=== PATIENT | female | born 1975 | race Two or more races ===

== ENCOUNTER 2020-05-06 13:22 | Emergency (ER) | payer MEDICARE, MEDICAID, SELFPAY ==
[2020-05-06 14:16] VITALS: BP 188/93; PULSE 90; RESP 16; TEMP 36.4; O2SAT 97; BMI 42.5
--- NOTE | 2020-05-06 15:02 | ED.GENADULT ---
HPI - General Adult General Chief complaint: General Medical Stated complaint: med refills Time Seen by Provider: 05/06/20 14:44 Source: patient Mode of arrival: ambulatory Limitations: no limitations History of Present Illness HPI narrative: 44-year-old female with a past medical history of depression, PTSD, bipolar, chronic mental illness, hypertension, obesity, peptic ulcer disease, chronic back pain and anemia presenting to the ED for medication refill. Reports that she recently moved to the area and has not had her medications in 3 weeks. Reports that she has been following up with the therapist weekly although she does not have an appointment with the psychiatrist or PCP until 3 months and they cannot prescribe her anything until then. She denies any SI/HI/auditory visual hallucinations or thoughts of self injury. Denies any other complaints or concerns at this time. MD complaint: Medication refill Onset (ago): week(s) Related Data Previous Rx's Medication Instructions Recorded cyclobenzaprine 10 mg PO TID PRN #90 tab 05/06/20 divalproex [Depakote] 1,250 mg PO BID #450 tab 05/06/20 ferrous sulfate 325 mg PO DAILY #90 tab 05/06/20 hydroxyzine HCl 25 mg PO TID PRN #90 tab 05/06/20 levothyroxine 25 mcg PO DAILY #90 tab 05/06/20 lisinopril 5 mg PO DAILY #90 tab 05/06/20 omeprazole 20 mg PO DAILY #90 cap 05/06/20 prazosin 1 mg PO BEDTIME #90 cap 05/06/20 quetiapine 100 mg PO BEDTIME #90 tab 05/06/20 trazodone 50 mg PO BEDTIME #90 tab 05/06/20 Allergies Allergy/AdvReac Type Severity Reaction Status Date / Time hydromorphone Allergy Unknown Verified 06/22/16 00:00 insect venom [INSECT BITES] Allergy Unknown UNKNOWN Unverified 11/06/19 16:41 penicillin V Allergy Unknown Verified 06/22/16 00:00 Penicillins Allergy Unknown UNKNOWN Unverified 11/06/19 16:41 sulfamethoxazole Allergy Unknown UNKNOWN Unverified 11/06/19 16:41 [From BACTRIM] trimethoprim [From BACTRIM] Allergy Unknown UNKNOWN Unverified 11/06/19 16:41 From DILAUDID Allergy Unknown RASH Uncoded 11/06/19 16:41 Review of Systems Review of Systems: Constitutional : No Fever, No Chills ENT/Mouth : No Ear Pain, No Nasal Congestion, No sore throat Eyes: No Eye Pain, No Swelling, No Redness Cardiovascular : No Chest Pain, No SOB Respiratory : No Cough, No Sputum, No Dyspnea Gastrointestinal : No ingestions, No Nausea, No Vomiting, No Diarrhea, No Hematochezia, No Melena Genitourinary : No Dysuria, No Urinary Frequency, No Hematuria Musculoskeletal : No Myalgias Skin : No Skin Lesions, No rash Neuro : No Weakness, No Numbness, No Paresthesias, No Dizziness, No Headache Psych : No Anxiety, No Depression, No SI/HI, No AVH, No thoughts of self injury Heme/Lymph: No Lymphadenopathy Endocrine : No Polyuria, No Polydipsia Yes all other systems are reviewed and are negative [facility] Past Medical History Attestation statement: The following information was validated with the patient. Medical History Hypertension Psychiatric diagnosis Social History Social History Advance Directives: No Advance Directives Information Provided: No Physical Exam Vital Signs: Vital Signs: Last Vital Signs Temp 97.6 F 05/06/20 14:16 Pulse 90 05/06/20 14:16 Resp 16 05/06/20 14:16 BP 188/93 H 05/06/20 14:16 Pulse Ox 97 05/06/20 14:16 Body Mass Index 42.5 vital signs have been reviewed as normal and appeared to be correct. Blood pressure normal. Heart rate normal. Respiration rate normal. Temperature normal. Oxygen saturation normal. Appearance: Alert. Oriented X3. No acute distress. Head: Normal external exam. Normocephalic. Atraumatic. Eyes: PERRLA. EOMI. Conjunctiva and sclera normal. Eyelids normal. ENT: Pharynx normal. Uvula midline. Moist mucous membranes. Neck: Normal inspection. Neck supple. FROM. No adenopathy. Thyroid Normal. No meningeal signs. No neck mass noted. CVS: Normal heart rate and rhythm. Heart sound normal. No murmurs noted. Pulses normal throughout. Respiratory: No respiratory distress. Painless inspiration. Back: No CVA tenderness. Full range of motion noted. Skin: Skin warm and dry. Normal skin color. Normal skin turgor. No rashes/lesions/lacerations noted. Extremities: No lower extremity edema. Extremities exhibit normal range of motion. Extremities nontender. Neuro: Oriented X 3. No motor deficit. No sensory deficit. Reflexes normal. Psych: Appearance grossly normal, well-kept, mental status normal, speech and movement normal, speech clear, patient has a normal mood. Is cooperative. Normal thought process. Normal thought content. Normal good insight. Judgment good. Course Course Course Narrative: 44-year-old female with a past medical history of depression, PTSD, bipolar, chronic mental illness, hypertension, obesity, peptic ulcer disease, chronic back pain and anemia presenting to the ED for medication refill. Reports that she recently moved to the area and has not had her medications in 3 weeks. Reports that she has been following up with the therapist weekly although she does not have an appointment with the psychiatrist or PCP until 3 months and they cannot prescribe her anything until then. She denies any SI/HI/auditory visual hallucinations or thoughts of self injury. Denies any other complaints or concerns at this time. - will refill the patient's medications and instructed to return if any new or worsening symptoms to follow up with her therapist/psychiatrist and PCP when she gets her appointment. Patient understands agrees with this plan. Medical Decision Making Medical Records Medical records reviewed: Yes I reviewed the patient's medical records. Discharge Plan Discharge Clinical Impression: Encounter for medication refill Patient Disposition: Home, Self-Care Instructions: Medicine Refill (ED) Prescriptions: New hydroxyzine HCl 25 mg tablet 25 mg PO TID PRN (Reason: Itchy) Qty: 90 RF: 3 cyclobenzaprine 10 mg tablet 10 mg PO TID PRN (Reason: muscle spasm) Qty: 90 RF: 3 divalproex [Depakote] 250 mg tablet,delayed release (DR/EC) 1,250 mg PO BID Qty: 450 RF: 3 prazosin 1 mg capsule 1 mg PO BEDTIME Qty: 90 RF: 3 omeprazole 20 mg capsule,delayed release(DR/EC) 20 mg PO DAILY Qty: 90 RF: 3 trazodone 50 mg tablet 50 mg PO BEDTIME Qty: 90 RF: 3 levothyroxine 25 mcg tablet 25 mcg PO DAILY Qty: 90 RF: 3 ferrous sulfate 325 mg (65 mg iron) tablet 325 mg PO DAILY Qty: 90 RF: 3 lisinopril 5 mg tablet 5 mg PO DAILY Qty: 90 RF: 3 quetiapine 100 mg tablet 100 mg PO BEDTIME Qty: 90 RF: 3 Referrals: Physician,None [Primary Care Provider] - 2 days (Your PCP/therapist/psychiatrist) Print Language: Indonesian
== END 2020-05-06 15:45 | disposition home or self-care (01) ==
PROVIDERS: Emergency Provider Emergency Medicine Emergency Medical Services
DX: Z76.0 Encounter for issue of repeat prescription (principal); F31.9 Bipolar disorder, unspecified; F43.10 Post-traumatic stress disorder, unspecified; I10 Essential (primary) hypertension
CPT/HCPCS: 99283

== ENCOUNTER 2020-08-01 01:02 | Emergency (ER) | payer MEDICARE, MEDICAID, SELFPAY ==
--- NOTE | ~2020-08-01 | XR_ITS ---
EXAMINATION: XR KNEE, RIGHT CLINICAL INFORMATION: Knee pain COMPARISON: None TECHNIQUE: Four views of the right knee. FINDINGS: Osseous alignment is anatomic. There is mild to moderate tricompartmental joint space narrowing with associated osteophytosis. No acute fracture is seen. Moderate effusion is noted. XR/XR knee RT 4V IMPRESSION: Moderate knee effusion. Mild to moderate degenerative changes.
[2020-08-01 02:11] VITALS: BP 106/79; PULSE 122; RESP 18; TEMP 36.2; O2SAT 97; BMI 42.7
--- NOTE | 2020-08-01 05:46 | ED.LOWEXIN ---
HPI - Extremity Injury (Lower) General Chief Complaint: Extremity Injury, Lower Stated Complaint: Back pain Time Seen by Provider: 08/01/20 05:19 History of Present Illness HPI Narrative: Patient is a 44-year-old female with a history of arthritis to the right knee. Complaining of pain worse with movement. There is no fever no chills. No systemic complaints. Patient denies any trauma. Had cortisone shots for similar episodes in the past. Symptoms seems to be improved with a cortisone shots. No nausea no vomiting. No chest pain or shortness of breath. No diaphoresis. No leg swelling. Related Data Previous Rx's Medication Instructions Recorded cyclobenzaprine 10 mg PO TID PRN #90 tab 05/06/20 divalproex [Depakote] 1,250 mg PO BID #450 tab 05/06/20 ferrous sulfate 325 mg PO DAILY #90 tab 05/06/20 hydroxyzine HCl 25 mg PO TID PRN #90 tab 05/06/20 levothyroxine 25 mcg PO DAILY #90 tab 05/06/20 lisinopril 5 mg PO DAILY #90 tab 05/06/20 omeprazole 20 mg PO DAILY #90 cap 05/06/20 prazosin 1 mg PO BEDTIME #90 cap 05/06/20 quetiapine 100 mg PO BEDTIME #90 tab 05/06/20 trazodone 50 mg PO BEDTIME #90 tab 05/06/20 hydromorphone [Dilaudid] 2 mg PO Q6H PRN 7 Days #14 tab 08/01/20 Allergies Allergy/AdvReac Type Severity Reaction Status Date / Time hydromorphone Allergy Unknown Verified 06/22/16 00:00 insect venom [INSECT BITES] Allergy Unknown UNKNOWN Unverified 11/06/19 16:41 penicillin V Allergy Unknown Verified 06/22/16 00:00 Penicillins Allergy Unknown UNKNOWN Unverified 11/06/19 16:41 sulfamethoxazole Allergy Unknown UNKNOWN Unverified 11/06/19 16:41 [From BACTRIM] trimethoprim [From BACTRIM] Allergy Unknown UNKNOWN Unverified 11/06/19 16:41 From DILAUDID Allergy Unknown RASH Uncoded 11/06/19 16:41 Review of Systems Review of Systems: Constitutional: No Weight loss, No Fever, No Chills, No Night Sweats, No Fatigue, No Malaise ENT/Mouth: No Hearing loss, No Ear Pain, No Nasal Congestion, No Sinus Pain, No Hoarseness, No sore throat, No Rhinorrhea, No Swallowing Difficulty Eyes: No Eye Pain, No Swelling, No Redness, No Foreign Body, No Discharge, No Vision Changes Cardiovascular: No Chest Pain, No SOB, No Dyspnea on Exertion, No Orthopnea, No Edema, No Palpitations Respiratory: No Cough, No Sputum, No Wheezing, No Smoke Exposure, No Dyspnea Gastrointestinal: No Nausea, No Vomiting, No Diarrhea, No Constipation, No abdominal Pain, No Hematochezia, No Melena Genitourinary: no irregular bleeding, No Dysuria, No Urinary Frequency, No Hematuria, No Urinary Incontinence, No Urgency, No Flank Pain, No Urinary Flow Changes, No Hesitancy Musculoskeletal: Positive pain to the left knee. Worse with movement Skin: No Skin Lesions, No rash Neuro: No Weakness, No Numbness, No Paresthesias, No Loss of Consciousness, No Dizziness, No Headache Psych: No Anxiety/Panic, No Depression, No SI/HI/AH/VH, No Social Issues, Heme/Lymph: No Bruising, No Bleeding,No Lymphadenopathy Endocrine: No Polyuria, No Polydipsia, No Temperature Intolerance PMFSH Past Medical History Attestation statement: The following information was validated with the patient. Medical History Hypertension Psychiatric diagnosis Social History Social History Advance Directives: No Advance Directives Information Provided: No Patient : No Physical Exam Vital Signs: Vital Signs: Last Vital Signs Temp 97.1 F 08/01/20 02:11 Pulse 122 H 08/01/20 02:11 Resp 18 08/01/20 02:11 BP 106/79 08/01/20 02:11 Pulse Ox 97 08/01/20 02:11 Body Mass Index 42.7 Appearance: Alert. Oriented X3. No acute distress. Eyes: Pupils equal, round and reactive to light. ENT: Pharynx normal. Neck: Normal inspection. Neck supple. No lymph nodes noted. No crepitus CVS: Normal heart rate and rhythm. Pulses normal. Normal S1 and S2 Respiratory: No respiratory distress. Breath sounds normal. No Wheezing. No rales Abdomen: Soft and nontender. No rigidity. No distention. good BS x4 Skin: Skin warm and dry. Normal skin color. Normal skin turgor. Extremities: No lower extremity edema. Neurovascular intact to all extremities. No Lacerations. No Rash. Positive moderate effusion in the right knee. Range of motion limited secondary to pain. There is no warmth to touch. Distally neurovascularly intact. There is good pulses at dorsalis pedis 2+. Sensation intact skin intact. Neuro: Oriented X 3. No motor deficit. No sensory deficit. Moving all extermities. No slurred speech MDM - Extremity Injury (Lower) MDM Narrative Medical decision making narrative: X-ray did not show any acute fracture. Showed a moderate effusion. Attempted to drain the knee after consent was obtained from patient. The knee was cleaned with Betadine. An 18 gauge needle is used for extraction of fluid. Unfortunately we were not able to get any fluid from the joint. Patient has a history of arthritis. Will start patient on narcotics as patient has a history of gastric ulcers and is unable to take NSAIDs. Currently in stable condition. Patient has a follow-up with her primary physician in the next week. She was told her primary can give her a steroid injection. Discharge Plan Discharge Clinical Impression: Osteoarthritis Patient Disposition: Home, Self-Care Instructions: Osteoarthritis (ED) Prescriptions: New hydromorphone [Dilaudid] 2 mg tablet 2 mg PO Q6H PRN (Reason: pain) 7 Days Qty: 14 RF: 0 No Action hydroxyzine HCl 25 mg tablet 25 mg PO TID PRN (Reason: Itchy) Qty: 90 RF: 3 cyclobenzaprine 10 mg tablet 10 mg PO TID PRN (Reason: muscle spasm) Qty: 90 RF: 3 divalproex [Depakote] 250 mg tablet,delayed release (DR/EC) 1,250 mg PO BID Qty: 450 RF: 3 prazosin 1 mg capsule 1 mg PO BEDTIME Qty: 90 RF: 3 omeprazole 20 mg capsule,delayed release(DR/EC) 20 mg PO DAILY Qty: 90 RF: 3 trazodone 50 mg tablet 50 mg PO BEDTIME Qty: 90 RF: 3 levothyroxine 25 mcg tablet 25 mcg PO DAILY Qty: 90 RF: 3 ferrous sulfate 325 mg (65 mg iron) tablet 325 mg PO DAILY Qty: 90 RF: 3 lisinopril 5 mg tablet 5 mg PO DAILY Qty: 90 RF: 3 quetiapine 100 mg tablet 100 mg PO BEDTIME Qty: 90 RF: 3
[2020-08-01] MEDS: HYDROmorphone HCl 2 MG TABLET PO (06:01)
== END 2020-08-01 06:38 | disposition home or self-care (01) ==
PROVIDERS: Emergency Provider Emergency Medicine Emergency Medical Services
DX: M25.461 Effusion, right knee (principal); M17.11 Unilateral primary osteoarthritis, right knee
CPT/HCPCS: 73564; 99283

== ENCOUNTER 2020-08-01 19:53 | Emergency (ER) | payer MEDICARE, MEDICAID, SELFPAY ==
[2020-08-01 21:03] VITALS: BP 176/100; PULSE 118; RESP 18; TEMP 36.6; O2SAT 98; BMI 42.1
[2020-08-01] MEDS: methylPREDNISolone acetate 80 MG VIAL INTRAARTIC (22:30)
[2020-08-01] MEDS: Lidocaine HCl 2 % MPF 5 ML VIAL INFILTRATI (22:31)
--- NOTE | 2020-08-01 23:09 | ED.EXTPRO ---
HPI - Extremity Problem General Chief complaint: Extremity Problem Stated complaint: knee pain Time Seen by Provider: 08/01/20 21:27 Source: patient Mode of arrival: ambulatory Limitations: no limitations History of Present Illness HPI Narrative: Patient osteoarthritis of knees complaining of increased pain in the right knee for last few days patient was seen here last night x-ray were done which shows arthritis with effusion S patient was tried yesterday without success patient come here for continued pain patient had received cortisone shot in the past Related Data Previous Rx's Medication Instructions Recorded cyclobenzaprine 10 mg PO TID PRN #90 tab 05/06/20 divalproex [Depakote] 1,250 mg PO BID #450 tab 05/06/20 ferrous sulfate 325 mg PO DAILY #90 tab 05/06/20 hydroxyzine HCl 25 mg PO TID PRN #90 tab 05/06/20 levothyroxine 25 mcg PO DAILY #90 tab 05/06/20 lisinopril 5 mg PO DAILY #90 tab 05/06/20 omeprazole 20 mg PO DAILY #90 cap 05/06/20 prazosin 1 mg PO BEDTIME #90 cap 05/06/20 quetiapine 100 mg PO BEDTIME #90 tab 05/06/20 trazodone 50 mg PO BEDTIME #90 tab 05/06/20 hydromorphone [Dilaudid] 2 mg PO Q6H PRN 7 Days #14 tab 08/01/20 Allergies Allergy/AdvReac Type Severity Reaction Status Date / Time hydromorphone Allergy Unknown Unknown Verified 08/01/20 22:29 insect venom [INSECT BITES] Allergy Unknown UNKNOWN Verified 08/01/20 22:29 penicillin V Allergy Unknown Unknown Verified 08/01/20 22:29 Penicillins Allergy Unknown UNKNOWN Verified 08/01/20 22:29 sulfamethoxazole Allergy Unknown UNKNOWN Verified 08/01/20 22:29 [From BACTRIM] trimethoprim [From BACTRIM] Allergy Unknown UNKNOWN Verified 08/01/20 22:29 From DILAUDID Allergy Unknown RASH Uncoded 11/06/19 16:41 Review of Systems Review of Systems: Yes all other systems are reviewed and are negative PMFSH Past Medical History Medical History Hypertension Psychiatric diagnosis Social History Social History Advance Directives: No Advance Directives Information Provided: No Patient : No Physical Exam Vital Signs: Vital Signs: Last Vital Signs Temp 98 F 08/01/20 21:03 Pulse 118 H 08/01/20 21:03 Resp 18 08/01/20 21:03 BP 176/100 H 08/01/20 21:03 Pulse Ox 98 08/01/20 21:03 Body Mass Index 42.1 Const: General: comfortable and no acute distress HENMT: Head: Yes normocephalic Resp: Effort & Inspection: normal respiratory effort Auscultation: clear to auscultation bilaterally Cardio: Rate: regular rate Rhythm: regular rhythm Heart sounds: S1 normal heart sound present and S2 normal heart sound present Extrem: Knee images: 1. Diffuse tenderness with effusion Procedures Joint Aspiration/Injection Joint Asp./Inject. 1: Time Out Performed: Yes Side of body: right Joint Aspirated: knee Ultrasound Guidance: No Skin Prep: Povidone-Iodine1% Local Anesthetic: lidocaine 2% Amount of anesthesia used (mL): 1 Needle Size Used: 20G Fluid Obtained: viscous Total fluid obtained (mL): 0 Medication Injected, if any: Methylprednisolone (80 mg of Depo-Medrol+ 2 mL of lidocaine 2% injected) Amount of medication injected (mL): 3 Patient Tolerated Procedure: well Complications: none Additional Comments: Patient felt much better after Depo-Medrol injection pain almost gone and patient was ambulatory without any discomfort Discharge Plan Discharge Clinical Impression: Osteoarthritis Qualifiers: Osteoarthritis location: knee Osteoarthritis type: primary Laterality: right Qualified Code(s): M17.11 - Unilateral primary osteoarthritis, right knee Patient Disposition: Home, Self-Care Instructions: Osteoarthritis (ED) Additional Instructions: Rest your right knee use Brody wrap for support follow-up with orthopedic Prescriptions: No Action hydroxyzine HCl 25 mg tablet 25 mg PO TID PRN (Reason: Itchy) Qty: 90 RF: 3 cyclobenzaprine 10 mg tablet 10 mg PO TID PRN (Reason: muscle spasm) Qty: 90 RF: 3 divalproex [Depakote] 250 mg tablet,delayed release (DR/EC) 1,250 mg PO BID Qty: 450 RF: 3 prazosin 1 mg capsule 1 mg PO BEDTIME Qty: 90 RF: 3 omeprazole 20 mg capsule,delayed release(DR/EC) 20 mg PO DAILY Qty: 90 RF: 3 trazodone 50 mg tablet 50 mg PO BEDTIME Qty: 90 RF: 3 levothyroxine 25 mcg tablet 25 mcg PO DAILY Qty: 90 RF: 3 ferrous sulfate 325 mg (65 mg iron) tablet 325 mg PO DAILY Qty: 90 RF: 3 lisinopril 5 mg tablet 5 mg PO DAILY Qty: 90 RF: 3 quetiapine 100 mg tablet 100 mg PO BEDTIME Qty: 90 RF: 3 hydromorphone [Dilaudid] 2 mg tablet 2 mg PO Q6H PRN (Reason: pain) 7 Days Qty: 14 RF: 0 Referrals: Lise Gold MD [Physician] - 2 weeks Interventions: ED Discharge Assessment Last Done: 08/01/20 22:44 Discharge Date/Time: 08/01/20 22:54
== END 2020-08-01 22:54 | disposition home or self-care (01) ==
PROVIDERS: Emergency Provider Internal Medicine; PCP General Practice
DX: M17.11 Unilateral primary osteoarthritis, right knee (principal); M25.461 Effusion, right knee; M25.561 Pain in right knee
CPT/HCPCS: 20610; 73564; 99283; 99285; J1040

== ENCOUNTER 2020-08-05 14:03 | Emergency (ER) | payer MEDICARE, MEDICAID, SELFPAY ==
--- NOTE | ~2020-08-05 | XR_ITS ---
EXAMINATION: XR KNEE, RIGHT CLINICAL INFORMATION: Right knee pain. [place] crack sound. Assess for fracture. COMPARISON: Radiographs right knee 08/01/2020. TECHNIQUE: 5 views of the right knee. FINDINGS: There is a moderate to large suprapatellar effusion similar to prior exam 08/01/2020. There is no interval fracture or dislocation or destructive process. Again, there are osteoarthritic changes involving the medial lateral knee joint compartments with joint narrowing and osteophytes from the femoral condyles and tibial plateau. There is no erosive change or chondrocalcinosis. XR/XR knee RT 4V IMPRESSION: Osteoarthritis with moderate to large suprapatellar effusion similar to recent exam 08/01/2020. No fracture or dislocation.
[2020-08-05 14:21] VITALS: BP 139/78; PULSE 105; RESP 17; TEMP 36.9; O2SAT 97; BMI 42.7
--- NOTE | 2020-08-05 14:49 | ED_ITS ---
HPI - Extremity Injury (Lower) General Chief Complaint: Extremity Injury, Lower Stated Complaint: knee pain Time Seen by Provider: 08/05/20 14:23 Source: patient Mode of arrival: ambulatory Limitations: no limitations History of Present Illness HPI Narrative: patient presents to ED for right knee pain. patient was here 2 days ago for knee pain had x-ray which showed arthritis and knee effusion as per patient. Patient states arthrocentesis was attempted, but not successful. States today while going up the stairs she twisted the knee and heard a crack and felt her kneecap went out of place. states pain ever since. Related Data Previous Rx's Medication Instructions Recorded cyclobenzaprine 10 mg PO TID PRN #90 tab 05/06/20 divalproex [Depakote] 1,250 mg PO BID #450 tab 05/06/20 ferrous sulfate 325 mg PO DAILY #90 tab 05/06/20 hydroxyzine HCl 25 mg PO TID PRN #90 tab 05/06/20 levothyroxine 25 mcg PO DAILY #90 tab 05/06/20 lisinopril 5 mg PO DAILY #90 tab 05/06/20 omeprazole 20 mg PO DAILY #90 cap 05/06/20 prazosin 1 mg PO BEDTIME #90 cap 05/06/20 quetiapine 100 mg PO BEDTIME #90 tab 05/06/20 trazodone 50 mg PO BEDTIME #90 tab 05/06/20 hydromorphone [Dilaudid] 2 mg PO Q6H PRN 7 Days #14 tab 08/01/20 ketorolac 10 mg PO Q6H PRN 5 Days #20 tab 08/05/20 prednisone 60 mg PO DAILY 5 Days #15 tab 08/05/20 Allergies Allergy/AdvReac Type Severity Reaction Status Date / Time hydromorphone Allergy Unknown Unknown Verified 08/05/20 14:24 insect venom [INSECT BITES] Allergy Unknown UNKNOWN Verified 08/05/20 14:24 penicillin V Allergy Unknown Unknown Verified 08/05/20 14:24 Penicillins Allergy Unknown UNKNOWN Verified 08/05/20 14:24 sulfamethoxazole Allergy Unknown UNKNOWN Verified 08/05/20 14:24 [From BACTRIM] trimethoprim [From BACTRIM] Allergy Unknown UNKNOWN Verified 08/05/20 14:24 From DILAUDID Allergy Unknown RASH Uncoded 09/17/20 16:41 Review of Systems Review of Systems: Yes all other systems are reviewed and are negative Constitutional: Constitutional: Reports as per HPI and Reports no additional constitutional complaints Eyes: Eyes: Reports as per HPI and Reports no additional eye complaints ENT: Reports system reviewed and no additional complaints, except as documented and Reports as per HPI Cardiovascular: Cardiovascular: Reports as per HPI and Reports no additional cardiovascular complaints Respiratory: Respiratory: Reports as per HPI and Reports no additional respiratory complaints Gastrointestinal: Gastrointestinal: Reports as per HPI and Reports no additional gastrointestinal complaints Genitourinary: Genitourinary: Reports no additional female genitourinary complaints and Reports as per HPI Musculoskeletal: Musculoskeletal: Reports no additional musculoskeletal complaints, Reports as per HPI and Reports arthralgias (right knee pain) Neurologic: Reports system reviewed and no additional complaints, except as documented and Reports as per HPI [facility] Past Medical History Medical History Hypertension Psychiatric diagnosis Social History Social History Advance Directives: No Advance Directives Information Provided: Yes Patient : No Physical Exam Vital Signs: Vital Signs: Last Vital Signs Temp 98.5 F 08/05/20 14:21 Pulse 105 H 08/05/20 14:21 Resp 17 08/05/20 15:57 BP 139/78 08/05/20 14:21 Pulse Ox 97 08/05/20 14:21 Body Mass Index 42.7 Const: General: cooperative, healthy appearing, comfortable, no acute distress, well developed, alert, awake and Physically active Orientation/consciousness: patient oriented x3 HENMT: Head: Yes normal to inspection, Yes No palpable skull fracture present, Yes normocephalic, Yes atraumatic and No abrasion Eyes: General: appearance normal, both eyes and all related structures Neck: Neck: Yes normal visual inspection, Yes full ROM, Yes no lymphadenopathy, Yes no meningeal signs, Yes trachea midline, Yes supple and No tender Chest: Chest palpation & inspection: normal inspection of the chest and normal palpation of entire chest wall Resp: Effort & Inspection: normal respiratory effort and able to speak in complete sentences Auscultation: clear to auscultation bilaterally GI: Inspection: Yes normal to inspection and No abdominal wall ecchymosis Palpation (GI): Soft to palpation, not firm, nontender, no guarding and not rigid : General: No CVA tenderness and Yes no CVA tenderness Back/Spine/Pelvis: Back: no CVA tenderness, No CVA tenderness and No back t enderness Skin: General skin exam: no rashes or lesions noted and elasticity normal Neuro: General: patient oriented x3, gait normal, no meningeal signs and CN's II-XI intact bilaterally Cranial nerves: Yes CN's II-XII intact bilaterally Extrem: General: Yes normal to inspection and Yes full ROM Knee images: 1. Positive for bone tenderness and lateral knee tenderness on palpation. Negative from warmth, redness, or laxity. Negative for crepitus on palpation. Pain on range of motion but not stiff. Pulses in feet intact. Negative for leg swelling or calf pain. Psych: Appearance: grossly normal, well kempt and not disheveled Course Course Course Narrative: repeat x-ray due tp the patient stating new trauma today. Will give Toradol, steroids, muscle relaxer. presently no indication for arthrocentesis. Not suspecting gout or sepsis. Reevaluation(s) Reevaluation #1: X-ray negative for fracture. Patient will be discharged with prednisone and told to keep her orthopedic appointment. Patient feels better and walked out the ED on her own. Time: 15:50 MDM - Extremity Injury (Lower) MDM Narrative Medical decision making narrative: Osteoarthritis Discharge Plan Discharge Clinical Impression: Osteoarthritis, Effusion of knee joint Patient Disposition: Home, Self-Care Instructions: Osteoarthritis (ED), Swollen Knee Joint (ED) Additional Instructions: Return to ED for immediately for redness, warmth/hotness of knee, fever, chills, leg swelling, chest pain, shortness of breath, or any other concerning symptoms. Will send tramadol and prednisone to her pharmacy. Please keep your orthopedic and PCP appointment. Prescriptions: New prednisone 20 mg tablet 60 mg PO DAILY 5 Days Qty: 15 RF: 0 ketorolac 10 mg tablet 10 mg PO Q6H PRN (Reason: pain) 5 Days Qty: 20 RF: 0 No Action hydroxyzine HCl 25 mg tablet 25 mg PO TID PRN (Reason: Itchy) Qty: 90 RF: 3 cyclobenzaprine 10 mg tablet 10 mg PO TID PRN (Reason: muscle spasm) Qty: 90 RF: 3 divalproex [Depakote] 250 mg tablet,delayed release (DR/EC) 1,250 mg PO BID Qty: 450 RF: 3 prazosin 1 mg capsule 1 mg PO BEDTIME Qty: 90 RF: 3 omeprazole 20 mg capsule,delayed release(DR/EC) 20 mg PO DAILY Qty: 90 RF: 3 trazodone 50 mg tablet 50 mg PO BEDTIME Qty: 90 RF: 3 levothyroxine 25 mcg tablet 25 mcg PO DAILY Qty: 90 RF: 3 ferrous sulfate 325 mg (65 mg iron) tablet 325 mg PO DAILY Qty: 90 RF: 3 lisinopril 5 mg tablet 5 mg PO DAILY Qty: 90 RF: 3 quetiapine 100 mg tablet 100 mg PO BEDTIME Qty: 90 RF: 3 hydromorphone [Dilaudid] 2 mg tablet 2 mg PO Q6H PRN (Reason: pain) 7 Days Qty: 14 RF: 0 Referrals: Maddie Kim MD [Primary Care Provider] - 2 days ( right knee osteoarthritis and effusion. Has orthopedic follow-up) Stand Alone Forms: Work/School Release Interventions: ED Discharge Assessment Last Done: 08/05/20 16:00 Discharge Date/Time: 08/05/20 16:03 Print Language: Cuban
[2020-08-05] MEDS: predniSONE 20 MG TABLET 60 MG PO (14:51)
[2020-08-05] MEDS: Ketorolac Tromethamine 30 MG/ML VIAL IM (14:51)
[2020-08-05] MEDS: Cyclobenzaprine HCl 10 MG TABLET PO (14:51)
[2020-08-05 15:57] VITALS: RESP 17
== END 2020-08-05 16:03 | disposition home or self-care (01) ==
PROVIDERS: Emergency Provider Emergency Medicine; PCP General Practice
DX: M25.461 Effusion, right knee (principal); M17.11 Unilateral primary osteoarthritis, right knee; I10 Essential (primary) hypertension; Z79.899 Other long term (current) drug therapy
CPT/HCPCS: 73564; 96372; 99283; 99284; J1885

== ENCOUNTER 2020-08-08 14:47 | Emergency (ER) | payer MEDICARE, MEDICAID, SELFPAY ==
[2020-08-08 15:24] VITALS: BP 149/90; PULSE 115; RESP 18; TEMP 36.9; O2SAT 97; BMI 42.7
--- NOTE | 2020-08-08 16:19 | PC.NURSE ---
not in wr 1545, 1600 and 1615
--- NOTE | 2020-08-08 16:25 | PC.NURSE ---
Not in waiting room, outside bench or in bathrooms at this time. no response with name called.
== END 2020-08-08 16:26 | disposition left against medical advice (07) ==
PROVIDERS: Emergency Provider Emergency Medicine; PCP General Practice
DX: M79.603 Pain in arm, unspecified (principal)
CPT/HCPCS: 99281

== ENCOUNTER 2020-08-10 23:13 | Emergency (ER) | payer MEDICARE, MEDICAID, SELFPAY ==
--- NOTE | ~2020-08-10 | XR_ITS ---
EXAMINATION: XR LUMBOSACRAL SPINE CLINICAL INFORMATION: Low back pain. COMPARISON: MRI dated 05/23/2016 and radiograph dated 05/09/2016 TECHNIQUE: AP and lateral views of the lumbar spine and lateral view of the lumbosacral junction. FINDINGS: There is moderate to severe degenerative disc disease L4-L5 with marked loss of vertebral disc height, endplate sclerosis, and endplate osteophytes. This has significantly progressed as compared to 2017. There is minimal right convex lumbar curvature. No fractures. No spondylolisthesis. No other levels in the lumbar spine are relatively well-preserved by comparison. No acute osseous findings. SI joints are unremarkable. XR/XR lumbar spine 2-3V IMPRESSION: Moderate to severe degenerative disc disease at L3-L4 has significantly progressed as compared to 2017. No acute findings.
[2020-08-11 00:35] VITALS: BP 149/92; PULSE 104; RESP 16; TEMP 36; O2SAT 100; BMI 42.3
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
[2020-08-11] MEDS: Cyclobenzaprine HCl 10 MG TABLET PO (01:21)
[2020-08-11] MEDS: Lidocaine 4 % Patch ADH..PATCH 2 PATCH TRANSDERMA (01:22)
[2020-08-11 01:30] VITALS: BP 149/72; PULSE 88; RESP 20; O2SAT 98
== END 2020-08-11 02:30 | disposition left against medical advice (07) ==
PROVIDERS: Emergency Provider Emergency Medicine; PCP General Practice
DX: S39.012A Strain of muscle, fascia and tendon of lower back, initial encounter (principal); I10 Essential (primary) hypertension; Z79.899 Other long term (current) drug therapy; V89.2XXA Person injured in unspecified motor-vehicle accident, traffic, initial encounter; Y93.9 Activity, unspecified; Y92.410 Unspecified street and highway as the place of occurrence of the external cause; Y99.9 Unspecified external cause status
CPT/HCPCS: 72100; 99283; 99284

== ENCOUNTER 2020-08-11 04:32 | Emergency (ER) | payer MEDICARE, MEDICAID, SELFPAY ==
[2020-08-11 04:50] VITALS: BP 140/104; PULSE 100; RESP 20; TEMP 36.2; O2SAT 98; BMI 41.7
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
--- NOTE | 2020-08-11 06:02 | ED.LOWEXIN ---
HPI - Extremity Injury (Lower) General Chief Complaint: Extremity Injury, Lower Stated Complaint: Leg pain Time Seen by Provider: 08/11/20 06:01 Source: patient Mode of arrival: ambulatory History of Present Illness HPI Narrative: 44-year-old female presents to the emergency room again with complaints of knee pain and requesting food. Otherwise, she has no acute complaints. Related Data Previous Rx's Medication Instructions Recorded cyclobenzaprine 10 mg PO TID PRN #90 tab 05/06/20 divalproex [Depakote] 1,250 mg PO BID #450 tab 05/06/20 ferrous sulfate 325 mg PO DAILY #90 tab 05/06/20 hydroxyzine HCl 25 mg PO TID PRN #90 tab 05/06/20 levothyroxine 25 mcg PO DAILY #90 tab 05/06/20 lisinopril 5 mg PO DAILY #90 tab 05/06/20 omeprazole 20 mg PO DAILY #90 cap 05/06/20 prazosin 1 mg PO BEDTIME #90 cap 05/06/20 quetiapine 100 mg PO BEDTIME #90 tab 05/06/20 trazodone 50 mg PO BEDTIME #90 tab 05/06/20 hydromorphone [Dilaudid] 2 mg PO Q6H PRN 7 Days #14 tab 08/01/20 ketorolac 10 mg PO Q6H PRN 5 Days #20 tab 08/05/20 prednisone 60 mg PO DAILY 5 Days #15 tab 08/05/20 cyclobenzaprine 10 mg PO TID PRN #14 tab 08/11/20 Allergies Allergy/AdvReac Type Severity Reaction Status Date / Time hydromorphone Allergy Unknown Unknown Verified 08/05/20 14:24 insect venom [INSECT BITES] Allergy Unknown UNKNOWN Verified 08/05/20 14:24 penicillin V Allergy Unknown Unknown Verified 08/05/20 14:24 Penicillins Allergy Unknown UNKNOWN Verified 08/05/20 14:24 sulfamethoxazole Allergy Unknown UNKNOWN Verified 08/05/20 14:24 [From BACTRIM] trimethoprim [From BACTRIM] Allergy Unknown UNKNOWN Verified 08/05/20 14:24 From DILAUDID Allergy Unknown RASH Uncoded 11/06/19 16:41 Review of Systems Review of Systems: Pertinent positives and negatives as stated in HPI and 10 point review of systems is otherwise negative. PMFSH Past Medical History Source: nursing notes reviewed Medical History Hypertension Psychiatric diagnosis Social History Social History Patient Tobacco Use Status: Tobacco use Unknown Advance Directives: No Advance Directives Information Provided: No Patient : No Physical Exam Vital Signs: Vital Signs: Last Vital Signs Temp 97.2 F 08/11/20 04:50 Pulse 100 08/11/20 04:50 Resp 20 08/11/20 04:50 BP 140/104 H 08/11/20 04:50 Pulse Ox 98 08/11/20 04:50 Body Mass Index 41.7 Patient eloped prior to complete physical exam. GEN: NAD Patient observed to be walking without difficulty with a steady gait. Course Course Course Narrative: 44-year-old female who presents with knee pain and request for food. Discharge Plan Discharge Clinical Impression: Knee pain Patient Disposition: Elopement Prescriptions: No Action hydroxyzine HCl 25 mg tablet 25 mg PO TID PRN (Reason: Itchy) Qty: 90 RF: 3 cyclobenzaprine 10 mg tablet 10 mg PO TID PRN (Reason: muscle spasm) Qty: 90 RF: 3 divalproex [Depakote] 250 mg tablet,delayed release (DR/EC) 1,250 mg PO BID Qty: 450 RF: 3 prazosin 1 mg capsule 1 mg PO BEDTIME Qty: 90 RF: 3 omeprazole 20 mg capsule,delayed release(DR/EC) 20 mg PO DAILY Qty: 90 RF: 3 trazodone 50 mg tablet 50 mg PO BEDTIME Qty: 90 RF: 3 levothyroxine 25 mcg tablet 25 mcg PO DAILY Qty: 90 RF: 3 ferrous sulfate 325 mg (65 mg iron) tablet 325 mg PO DAILY Qty: 90 RF: 3 lisinopril 5 mg tablet 5 mg PO DAILY Qty: 90 RF: 3 quetiapine 100 mg tablet 100 mg PO BEDTIME Qty: 90 RF: 3 prednisone 20 mg tablet 60 mg PO DAILY 5 Days Qty: 15 RF: 0 ketorolac 10 mg tablet 10 mg PO Q6H PRN (Reason: pain) 5 Days Qty: 20 RF: 0 hydromorphone [Dilaudid] 2 mg tablet 2 mg PO Q6H PRN (Reason: pain) 7 Days Qty: 14 RF: 0 cyclobenzaprine 10 mg tablet 10 mg PO TID PRN (Reason: muscle spasm) Qty: 14 RF: 0
--- NOTE | 2020-08-11 06:03 | PC.NURSE ---
PATIENT STORMING OUT OF HER ROOM AFTER LAUGHING AND TALKING WITH THIS RN. SEEN BY PROVIDER. SHE STORMED OUT BYE THANKS FOR NOTHING . STATING TO REGISTRTION ON HER WAY OUT THAT SHE WILL BE BACK A THIRD TIME
== END 2020-08-11 06:09 | disposition left against medical advice (07) ==
PROVIDERS: Emergency Provider Student in an Organized Health Care Education/Training Program; PCP General Practice
DX: M25.569 Pain in unspecified knee (principal)
CPT/HCPCS: 72100; 99281; 99282; 99283; 99284

== ENCOUNTER 2020-08-12 23:27 | Inpatient (IN) | payer MEDICARE, MEDICAID, SELFPAY ==
[2020-08-13 00:06] VITALS: BP 144/110; PULSE 102; RESP 22; TEMP 36.1; O2SAT 98
[2020-08-13 00:31] VITALS: BP 140/72; PULSE 106; TEMP 35.7
[2020-08-13 00:33] VITALS: BMI 41.1
[2020-08-13] MEDS: Acetaminophen 325 MG TABLET 650 MG PO ×2 (01:14→20:04)
[2020-08-13] MEDS: hydrOXYzine HCL 25 MG TABLET PO (01:15)
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
[2020-08-13] MEDS: Omeprazole 20 MG CAPSULE.DR PO (05:58)
[2020-08-13 06:00] VITALS: BP 120/71; PULSE 95; RESP 18; TEMP 36.1; O2SAT 96
[2020-08-13] MEDS: Naltrexone HCl 50 MG TABLET PO (08:09)
[2020-08-13] MEDS: risperiDONE 0.5 MG TABLET PO (08:09)
--- NOTE | 2020-08-13 12:32 | P.DS_ITS ---
DS: Providers Provider Date of admission: 08/12/20 23:27 Primary care physician: Becca Callaway MD Consults: 08/13/20 00:00 Consult to Hospitalist Routine Consulting Provider: Hospitalist Reason For Exam: routine DS: Medications Discharge Medications Home Medications: Previous Rx's Medication Instructions Recorded cyclobenzaprine 10 mg PO TID PRN #90 tab 05/06/20 divalproex [Depakote] 1,250 mg PO BID #450 tab 05/06/20 ferrous sulfate 325 mg PO DAILY #90 tab 05/06/20 hydroxyzine HCl 25 mg PO TID PRN #90 tab 05/06/20 levothyroxine 25 mcg PO DAILY #90 tab 05/06/20 lisinopril 5 mg PO DAILY #90 tab 05/06/20 omeprazole 20 mg PO DAILY #90 cap 05/06/20 prazosin 1 mg PO BEDTIME #90 cap 05/06/20 quetiapine 100 mg PO BEDTIME #90 tab 05/06/20 trazodone 50 mg PO BEDTIME #90 tab 05/06/20 hydromorphone [Dilaudid] 2 mg PO Q6H PRN 7 Days #14 tab 08/01/20 ketorolac 10 mg PO Q6H PRN 5 Days #20 tab 08/05/20 prednisone 60 mg PO DAILY 5 Days #15 tab 08/05/20 cyclobenzaprine 10 mg PO TID PRN #14 tab 08/11/20 Discharge Plan Discharge Discharge Medications: No Action hydroxyzine HCl 25 mg tablet 25 mg PO TID PRN (Reason: Itchy) Qty: 90 RF: 3 cyclobenzaprine 10 mg tablet 10 mg PO TID PRN (Reason: muscle spasm) Qty: 90 RF: 3 divalproex [Depakote] 250 mg tablet,delayed release (DR/EC) 1,250 mg PO BID Qty: 450 RF: 3 prazosin 1 mg capsule 1 mg PO BEDTIME Qty: 90 RF: 3 omeprazole 20 mg capsule,delayed release(DR/EC) 20 mg PO DAILY Qty: 90 RF: 3 trazodone 50 mg tablet 50 mg PO BEDTIME Qty: 90 RF: 3 levothyroxine 25 mcg tablet 25 mcg PO DAILY Qty: 90 RF: 3 ferrous sulfate 325 mg (65 mg iron) tablet 325 mg PO DAILY Qty: 90 RF: 3 lisinopril 5 mg tablet 5 mg PO DAILY Qty: 90 RF: 3 quetiapine 100 mg tablet 100 mg PO BEDTIME Qty: 90 RF: 3 prednisone 20 mg tablet 60 mg PO DAILY 5 Days Qty: 15 RF: 0 ketorolac 10 mg tablet 10 mg PO Q6H PRN (Reason: pain) 5 Days Qty: 20 RF: 0 hydromorphone [Dilaudid] 2 mg tablet 2 mg PO Q6H PRN (Reason: pain) 7 Days Qty: 14 RF: 0 cyclobenzaprine 10 mg tablet 10 mg PO TID PRN (Reason: muscle spasm) Qty: 14 RF: 0 Data Data Completed and Pending Completed studies during hospitalization [Text1]: proposal writer reviewed labs from [facility] drawn on 08/12/20 and they are grossly WNL normal limits: lytes, cbc, bun/cr, lfts, UDS neg except for THC; [employer] Pilot does not see Urin e/serum test DS: Summary Time Spent with Patient Time attestation: Total time spent providing and/or coordinating discharge services:
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
--- NOTE | 2020-08-13 13:08 | PM.IMCN ---
History of Present Illness Data of Consult Service Date: 08/13/20 Requesting physician: Justice Summers Primary Care Provider: Becca Callaway MD [facility] facility This is a 44 yo F who endorses a PMH of HTN (reports being on lisinopril 5mg, although not sure how compliant she is because she reports not believing that she has high BP), OA of the knee (recently in [facility] for knee pain where an XR showed a large effusion), prior ankle surgery, tobacco use. She tells me that she is admitted to for not being able to sleep. She endorses chronic pain in the bilateral knees. She tells me she cannot take NSAIDS because I have 5 ulcers. She endorses prior joint injection in the knee in February. Besides her knee pain, she has no other medical complaints. Review of Systems Review of Systems: General - no fevers or chills Cardiovascular - no chest pain Respiratory - no shortness of breath or cough Abdominal- no abdominal pain, nausea, vomiting, diarrhea Ext - Knee pain PMFSH Medical History (Updated 08/13/20 @ 13:19 by Jose Mirza MD) Hypertension Psychiatric diagnosis Pertinent family history: Breast (cousin) Ovarian (aunt) Surgical History (Updated 08/13/20 @ 13:18 by Jose Mirza MD) History of ankle surgery History of cholecystectomy Social History Household Members: None Household Members Other:: lives by self Housing: Apartment Do you presently have visiting nurse or other home services: No Patient Tobacco Use Status: Current everyday Tobacco user Tobacco use type: Cigarette Smoked in Last 30 Days: Yes e-Cigarette/Vaping Use: Currently Using Patient Interested in Nicotine Replacement: No Patient Given Instructions on How to Stop Smoking: No Second Hand Smoke Exposure: No Use of substances other than those prescribed or required for medical reasons: Yes Substance Use Type Other:: CBD cigarettes Substance Use Frequency: Daily Last Used Substance: Just Prior to Admission Currently Displaying Signs/Symptoms of Drug Intoxication Withdrawal: No Other Past Substance Use Problem:: alcohol Any prior treatment program specific to substance use: Yes Have you been hit, kicked, punched, or otherwise hurt by someone within the past year? If so, by whom?: No Do you feel safe in your current relationship?: No Is there a partner from a previous relationship who is making you feel unsafe now?: No Are you made to feel afraid or neglected: No Spiritual Healthcare Practices: yes Voodoo Healthcare Practices: no gnosticist Cultural Healthcare Practices: no Advance Directives: No Advance Directives Information Provided: No Advance Directives on File: No Do you have thoughts of harming others: Constant and Vague Do you have a plan to hurt others: Clear Recently lost weight without trying: No Eating poorly because of decreased appetite: No Patient : No : No Poor oral hygiene: No service: No Sexual orientation: Did not discuss Meds Allergies Allergy/AdvReac Type Severity Reaction Status Date / Time hydromorphone Allergy Unknown Unknown Verified 08/05/20 14:24 insect venom [INSECT BITES] Allergy Unknown UNKNOWN Verified 08/05/20 14:24 penicillin V Allergy Unknown Unknown Verified 08/05/20 14:24 Penicillins Allergy Unknown UNKNOWN Verified 08/05/20 14:24 sulfamethoxazole Allergy Unknown UNKNOWN Verified 08/05/20 14:24 [From BACTRIM] trimethoprim [From BACTRIM] Allergy Unknown UNKNOWN Verified 08/05/20 14:24 From DILAUDID Allergy Unknown RASH Uncoded 11/06/19 16:41 Active Medications: Current Medications Generic Name Dose Route Start Last Admin Trade Name Freq PRN Reason Stop Dose Admin Acetaminophen 650 mg 08/13/20 00:00 08/13/20 01:14 Acetaminophen 325 Mg Tablet PO 650 mg Q6H PRN Administration Headache/Pain Mild Scale (1-3) Al Hydroxide/Mg Hydroxide 30 ml 08/13/20 00:00 Magnesium Hydrox/Alum Hydrox 30 Ml Oral.Susp PO Q6H PRN Heartburn/Nausea Cyclobenzaprine HCl 10 mg 08/13/20 00:57 Cyclobenzaprine Hcl 10 Mg Tablet PO TID PRN Pain, Mild (Pain Scale 1-3) Hydroxyzine HCl 25 mg 08/13/20 00:00 08/13/20 01:15 Hydroxyzine Hcl 25 Mg Tablet PO 25 mg BEDTIME PRN Administration Anxiety Magnesium Hydroxide 30 ml 08/13/20 00:00 Milk Of Magnesia 30 Ml Oral.Susp PO DAILY PRN Constipation Naltrexone HCl 50 mg 08/13/20 09:00 08/13/20 08:09 Naltrexone Hcl 50 Mg Tablet PO 50 mg DAILY JOSE DANIEL Administration Nicotine Polacrilex 2 mg 08/13/20 00:00 Nicotine Polacrilex 2 Mg Gum BUCCAL Q2H PRN Nicotine Cravings Omeprazole 20 mg 08/13/20 06:30 08/13/20 05:58 Omeprazole 20 Mg Capsule. PO 20 mg DAILY@0630 JOSE DANIEL Administration Prazosin HCl 1 mg 08/13/20 00:57 08/13/20 08:10 Prazosin Hcl 1 Mg Capsule PO Not Given BEDTIME [facility] Protocol Risperidone 0.5 mg 08/13/20 09:00 08/13/20 08:09 Risperidone 0.5 Mg Tablet PO 0.5 mg BID JOSE DANIEL Administration Trazodone HCl 50 mg 08/13/20 00:00 Trazodone Hcl 50 Mg Tablet PO BEDTIME PRN Insomnia Physical Exam Vital Signs and Narrative: Vital Signs: Last Vital Signs Temp 97 F 08/13/20 06:00 Pulse 95 08/13/20 06:00 Resp 18 08/13/20 06:00 BP 120/71 08/13/20 06:00 Pulse Ox 96 08/13/20 06:00 Body Mass Index 41.1 Const: Other: General - no acute distress, appears comfortable Cardiovascular - regular rate and rhythm, S1-S2 Lungs - normal respiratory effort, clear to auscultation bilaterally, no wheezing Abdomen - soft, nontender, no rebound or guarding Extremities - R knee effusion, ROM appears normal; ambulating freely in the hallway Neuro - awake and alert, no focal deficits Psych - impaired insight Assessment and Plan (1) Knee pain: Status: Acute This is a 44 yo F with a PMH of HTN, OA, prior CCK and ankle surgeries who is admitted to after being transferred from another facility. Medical services are consulted for routine medical examination. 1. HTN per patient history. She reports being on lisinopril 5mg. She also reports that she does not believe she has HTN and that her BP increases only when shes angry. Can observe her BP and if persistantly over 140/90, can start Lisinopril 5mg and uptitrate. 2. OA of the Knees 2a. Knee effusion She endorses pain but is able to ambulate without any issues. Can give tylenol PRN for pain. NSAIDS would give greater relief, but she reports have 5 uclers so would avoid for now. If pain becomes a major issue -- would recommend Orthopedic consultation to see if drainage of the effusion would be of benefit. Please re-consult if any questions. Thank you.
[2020-08-13] MEDS: Divalproex Sodium ER 250 MG TAB.ER.24H 1250 MG PO (14:18)
[2020-08-13 16:00] VITALS: BP 159/91; PULSE 84; TEMP 36.5
[2020-08-13] MEDS: Buprenorphine/Naloxone 8/2 mg TAB.SUBL 0.5 TAB SUBLINGUAL (16:04)
[2020-08-13] MEDS: Nicotine Polacrilex 2 MG GUM 4 MG BUCCAL (18:04)
[2020-08-13 19:14] LABS: HCG Quantitative < 2 mIU/mL
[2020-08-13 20:04] VITALS: BP 157/84
[2020-08-13] MEDS: Prazosin HCL 1 MG CAPSULE 5 MG PO (20:04)
[2020-08-13] MEDS: risperiDONE 2 MG TABLET PO (21:12)
[2020-08-14] MEDS: Cyclobenzaprine HCl 10 MG TABLET PO ×2 (00:38→09:11)
[2020-08-14] MEDS: hydrOXYzine HCL 25 MG TABLET PO (00:38)
[2020-08-14] MEDS: traZODone HCL 50 MG TABLET PO ×2 (00:39→01:41)
[2020-08-14] MEDS: Acetaminophen 325 MG TABLET 650 MG PO ×2 (04:45→11:07)
[2020-08-14] MEDS: Omeprazole 20 MG CAPSULE.DR PO (05:17)
[2020-08-14 06:00] VITALS: BP 145/78; PULSE 75; RESP 16; TEMP 36.1; O2SAT 99
[2020-08-14 07:45] LABS: MANUAL DIFF FLAG NO
[2020-08-14] MEDS: Divalproex Sodium ER 250 MG TAB.ER.24H 1250 MG PO (07:47)
[2020-08-14] MEDS: Naltrexone HCl 50 MG TABLET PO (07:48)
[2020-08-14] MEDS: risperiDONE 1 MG TABLET PO (07:48)
[2020-08-14 07:56] LABS: Basophils Percent Auto 0.4 % (0-2); Eosinophils Absolute Auto 0.2 X10*3/uL (0.0-0.4); Eosinophils Percent Auto 2.9 % (0-4); Hematocrit 34.9 % (37-47); Hemoglobin 10.9 g/dl (12.0-16.0); Imm Gran Abs Auto 0.03 X10*3/uL (0.00-0.03); Imm Gran Pct Auto 0.4 % (0.0-0.4); Lymphocytes Absolute Auto 1.7 X10*3/uL (1.2-4.9); Lymphocytes Percent Auto 23.9 % (20-40); Mean Corpuscular HGB Conc 31.2 g/dl (31.0-35.0); Mean Corpuscular Hemoglobin 24.9 pg (27.0-33.0); Mean Corpuscular Volume 79.9 fL (80-98); Mean Platelet Volume 9.8 fL (9.4-12.3); Monocytes Absolute Auto 0.7 X10*3/uL (0.1-1.2); Monocytes Percent Auto 9.2 % (2-11); Neutrophils Absolute Auto 4.6 X10*3/uL (2.0-8.3); Neutrophils Percent Auto 63.2 % (45-73); Platelet Count 327 X10*3/uL (160-400); Red Blood Count 4.37 X10*6/uL (4.20-5.50); Red Cell Distribution Width 12.6 % (11.0-16.0); White Blood Count 7.3 X10*3/uL (4.8-10.8)
[2020-08-14] MEDS: Buprenorphine/Naloxone 8/2 mg TAB.SUBL 0.5 TAB SUBLINGUAL (08:11)
[2020-08-14 08:12] LABS: Alanine Aminotransferase 21 U/L (0-31); Albumin Level 4.1 g/dL (3.5-5.0); Alkaline Phosphatase 73 U/L (39-117); Anion Gap 11 (12-20); Aspartate Amino Transferase 16 U/L (5-31); Bilirubin Direct 0.2 mg/dL (0.0-0.5); Bilirubin Total 0.2 mg/dL (0.0-1.0); Blood Urea Nitrogen 9 mg/dL (9-16); Calcium 9.3 mg/dL (8.4-10.2); Carbon Dioxide 25 mmol/L (22-29); Chloride 105 mmol/L (96-108); Cholesterol 142 mg/dL; Creatinine Clr Calc Pharmacy 118.7; Estimated Glomerular Filt Rate > 60; Glucose Fasting 90 mg/dL (60-99); HDL Cholesterol 50 mg/dL; LDL Cholesterol Calculated 75 mg/dl; Potassium 4.1 mmol/L (3.3-5.1); Sodium 137 mmol/L (135-145); Total Protein 6.8 g/dL (6.5-8.0); Triglycerides 85 mg/dL
[2020-08-14 08:17] LABS: Estimated Average Glucose 77 mg/dL; Hemoglobin A1c % 4.3 %
[2020-08-14 08:32] LABS: UPreg QC Valid YES; Urine Pregnancy NEGATIVE (NEGATIVE)
[2020-08-14 08:33] LABS: Thyroid Stimulating Hormone 0.87 uIU/mL (0.32-4.0)
[2020-08-14] MEDS: QUEtiapine Fumarate 50 MG TABLET PO (09:18)
--- NOTE | 2020-08-14 10:04 | P.PNPSI_ITS ---
Subjective Subjective Date of Service: 08/14/20 Reason For Visit: Depression Interim History: Patient was seen and discussed in rounds today. She continues to be hypomanic, agitated, disruptive, banging on doors, threw a chair in the hallway. Seroquel p.r.n. was ordered. Initially she would not take it but finally took 50 mg with little to no effect. This was discontinued and Thorazi ne 100 mg stat and 50 mg q.i.d. p.r.n. was ordered. Unable to review side effects with her given her current mental state. Review of Systems Review of Systems General - no fevers or chills Cardiovascular - no chest pain Respiratory - no shortness of breath or cough Abdominal- no abdominal pain, nausea, vomiting, diarrhea Ext - Knee pain Yes all other systems are reviewed and are negative Mental Status Exam Mental Status Exam Narrative: In today's visit she was seen and discussed in the rounds. She is alert, minimally cooperative given her mental state. Speech is pressured. Little to no eye contact. Affect is labile. Moderate agitation present. No SI. No acute signs of psychosis. Cognitively she has racing thoughts, poor concentration. Judgment his marginal secondary to her mental state Diagnostics Vital Signs (24Hr): Vital Signs - 24 hr 08/13/20 16:00 08/13/20 20:04 08/14/20 06:00 Temperature 97.7 F 97 F Pulse Rate 84 75 Respiratory Rate 16 Blood Pressure 159/91 H 157/84 H 145/78 H Pulse Oximetry 99 Body Mass Index 41.1 Labs Results: 08/14/20 07:37 08/14/20 07:37 Labs: Laboratory Results - last 48 hr 08/13/20 08/14/20 08/14/20 18:39 07:37 07:37 WBC 7.3 RBC 4.37 Hgb 10.9 L Hct 34.9 L MCV 79.9 L MCH 24.9 L MCHC 31.2 RDW 12.6 Plt Count 327 MPV 9.8 Immature Gran % (Auto) 0.4 Neut % (Auto) 63.2 Lymph % (Auto) 23.9 [place] % (Auto) 9.2 Eos % (Auto) 2.9 Baso % (Auto) 0.4 Lymph # (Auto) 1.7 [place] # (Auto) 0.7 Eos # (Auto) 0.2 Baso # (Auto) 0.0 Abs Immat Gran (auto) 0.03 Absolute Neuts (auto) 4.6 Absolute Nucleated RBC 0.000 Nucleated RBC % (auto) 0.0 Sodium 137 Potassium 4.1 Chloride 105 Carbon Dioxide 25 Anion Gap 11 L BUN 9 Creatinine 0.69 Estim Creat Clear Calc 118.7 Estimated GFR > 60 Fasting Glucose 90 Estimat Average Glucose Hemoglobin A1c % Calcium 9.3 Total Bilirubin 0.2 Direct Bilirubin 0.2 AST 16 ALT 21 Alkaline Phosphatase 73 Total Protein 6.8 Albumin 4.1 Triglycerides 85 Cholesterol 142 LDL Cholesterol, Calc 75 HDL Cholesterol 50 TSH 0.87 Beta HCG, Quant < 2 Urine Test 08/14/20 08/14/20 07:37 08:08 WBC RBC Hgb Hct MCV MCH MCHC RDW Plt Count MPV Immature Gran % (Auto) Neut % (Auto) Lymph % (Auto) [place] % (Auto) Eos % (Auto) Baso % (Auto) Lymph # (Auto) [place] # (Auto) Eos # (Auto) Baso # (Auto) Abs Immat Gran (auto) Absolute Neuts (auto) Absolute Nucleated RBC Nucleated RBC % (auto) Sodium Potassium Chloride Carbon Dioxide Anion Gap BUN Creatinine Estim Creat Clear Calc Estimated GFR Fasting Glucose Estimat Average Glucose 77 Hemoglobin A1c % 4.3 Calcium Total Bilirubin Direct Bilirubin AST ALT Alkaline Phosphatase Total Protein Albumin Triglycerides Cholesterol LDL Cholesterol, Calc HDL Cholesterol TSH Beta HCG, Quant Urine Test NEGATIVE Medications Medications Current Medications Generic Name Dose Route Start Last Admin Trade Name Freq PRN Reason Stop Dose Admin Acetaminophen 650 mg 08/13/20 00:00 08/14/20 04:45 Acetaminophen 325 Mg Tablet PO 650 mg Q6H PRN Administration Headache/Pain Mild Scale (1-3) Al Hydroxide/Mg Hydroxide 30 ml 08/13/20 00:00 Magnesium Hydrox/Alum Hydrox 30 Ml Oral.Susp PO Q6H PRN Heartburn/Nausea Buprenorphine/Naloxone 0.5 tab 08/13/20 13:48 08/14/20 08:11 Buprenorphine/Naloxone 8/2 Mg Tab.Subl SUBLINGUAL 0.5 tab BID PRN Administration moderate to severe pain Chlorpromazine HCl 100 mg 08/14/20 10:00 Chlorpromazine Hcl 100 Mg Tablet PO 08/14/20 10:01 ONCE ONE Chlorpromazine HCl 50 mg 08/14/20 10:00 Chlorpromazine Hcl 25 Mg Tablet PO QID PRN Anxiety Cyclobenzaprine HCl 10 mg 08/13/20 00:57 08/14/20 09:11 Cyclobenzaprine Hcl 10 Mg Tablet PO 10 mg TID PRN Administration Pain, Mild (Pain Scale 1-3) Divalproex Sodium 1,250 mg 08/13/20 13:50 08/14/20 07:47 Divalproex Sodium Er 250 Mg Tab.Er.24h PO 1,250 mg DAILY JOSE DANIEL Administration Hydroxyzine HCl 25 mg 08/13/20 00:00 08/14/20 00:38 Hydroxyzine Hcl 25 Mg Tablet PO 25 mg BEDTIME PRN Administration Anxiety Magnesium Hydroxide 30 ml 08/13/20 00:00 Milk Of Magnesia 30 Ml Oral.Susp PO DAILY PRN Constipation Naltrexone HCl 50 mg 08/13/20 09:00 08/14/20 07:48 Naltrexone Hcl 50 Mg Tablet PO 50 mg DAILY JOSE DANIEL Administration Nicotine 21 mg 08/13/20 12:56 Nicotine 21 Mg Patch.Td24 TRANSDERMA DAILY PRN smoking cessation Nicotine Polacrilex 4 mg 08/13/20 13:54 08/13/20 18:04 Nicotine Polacrilex 2 Mg Gum BUCCAL 4 mg Q2H PRN Administration Nicotine Cravings Omeprazole 20 mg 08/13/20 06:30 08/14/20 05:17 Omeprazole 20 Mg Capsule.Dr PO 20 mg DAILY@0630 JOSE DANIEL Administration Prazosin HCl 5 mg 08/13/20 21:00 08/13/20 20:04 Prazosin Hcl 1 Mg Capsule PO 5 mg BEDTIME JOSE DANIEL Administration Protocol Quetiapine Fumarate 50 mg 08/14/20 09:01 08/14/20 09:18 Quetiapine Fumarate 50 Mg Tablet PO 50 mg Q4H PRN Administration Anxiety Risperidone 2 mg 08/13/20 21:00 08/13/20 21:12 Risperidone 2 Mg Tablet PO 2 mg BEDTIME JOSE DANIEL Administration Risperidone 1 mg 08/14/20 09:00 08/14/20 07:48 Risperidone 1 Mg Tablet PO 1 mg DAILY JOSE DANIEL Administration Risperidone 50 mg 08/16/20 12:00 Risperidone Microspheres 50 Mg/2 Ml Syringe IM 08/16/20 12:01 ONCE ONE Trazodone HCl 50 mg 08/13/20 00:00 08/14/20 01:41 Trazodone Hcl 50 Mg Tablet PO 50 mg BEDTIME PRN Administration Insomnia Allergies Allergies Allergy/AdvReac Type Severity Reaction Status Date / Time hydromorphone Allergy Unknown Unknown Verified 08/05/20 14:24 insect venom [INSECT BITES] Allergy Unknown UNKNOWN Verified 08/05/20 14:24 penicillin V Allergy Unknown Unknown Verified 08/05/20 14:24 Penicillins Allergy Unknown UNKNOWN Verified 08/05/20 14:24 sulfamethoxazole Allergy Unknown UNKNOWN Verified 08/05/20 14:24 [From BACTRIM] trimethoprim [From BACTRIM] Allergy Unknown UNKNOWN Verified 08/05/20 14:24 From DILAUDID Allergy Unknown RASH Uncoded 11/06/19 16:41 Assessment & Plan Assessment & Plan (1) Bipolar 1 disorder: Status: Acute Code(s): F31.9 - Bipolar disorder, unspecified (2) Alcohol abuse: Status: Acute Code(s): F10.10 - Alcohol abuse, uncomplicated (3) Knee pain: Qualifiers: Chronicity: chronic Laterality: right Qualified Code(s): M25.561 - Pain in right knee; G89.29 - Other chronic pain Status: Acute Code(s): M25.569 - Pain in unspecified knee Assessment and Plan: IMPRESSION: Patient is a 44-year-old female with history of bipolar disorder, alcohol abuse, emotional reactivity and PTSD who presents for manic symptoms in the community having been off Risperdal for 2 weeks. Patient presents as moderately manic. But though patient has manic behaviors in the community and on the unit, she is also with enough insight and knows her diagnosis, medications and that she is currently ?revved up? and that it is likely due to being off Risperdal Consta for 2 weeks (and may be partially triggered by abrupt discontinuation of alcohol). She says she has been taking Depakote regularly and wants to get back on Consta. Though she can be intermittently unreasonably demanding, she can also be friendly, redirectable and cooperative. Plan Patient on CV Q 15 minutes checks Labs reviewed and are grossly within normal limits, however no urine test found. Patient reports she has been taking Depakote up until day of admission. She did get 1 dose today before test. Will get serum test Will continue Depakote Will restart Risperdal Consta 50mg; patient is interested in Invega Sustenna since it is longer lasting Will increasing continue Risperdal p.o. for now given that she is manic Greater than 50% of the session was spent on counseling and/or coordination of care Reason for contiued inpatient stay Substantial Risk for: med/psych decompensation
[2020-08-14] MEDS: chlorproMAZINE HCl 100 MG TABLET PO (10:20)
[2020-08-14] MEDS: LORazepam 2 MG/ML VIAL IM (11:57)
[2020-08-14] MEDS: Haloperidol Lactate 5 MG/ML VIAL 10 MG IM (11:57)
[2020-08-14] MEDS: Benztropine Mesylate 2 MG/2 ML VIAL IM (11:57)
--- NOTE | 2020-08-14 12:03 | P.PNPSI_ITS ---
Subjective Subjective Date of Service: 08/14/20 Reason For Visit: Depression Interim History: Atiya has been quite agitated all morning and initially with a lot of encouragement took 50 mg of Seroquel with no affect, then 100 mg of Thorazine with no affect. She was pacing up and down the bermudez, shouting, pushing 1 of the nurses and finally disrobed completely. Security was called and she was escorted into the secure room. She refusing any p.o. medications and Haldol 10 mg, Cogentin 2 mg and Ativan 2 mg, all IM were given. She finally started to come down and go to sleep. Her vital signs are 132/90, pulse rate 85, respiration 18 and temperature 97.8?. No signs of distress at this time Mental Status Exam Mental Status Exam Narrative: Patient is quite drowsy and sleepy. No formal exam could be done Diagnostics Vital Signs (24Hr): Vital Signs - 24 hr 08/13/20 16:00 08/13/20 20:04 08/14/20 06:00 Temperature 97.7 F 97 F Pulse Rate 84 75 Respiratory Rate 16 Blood Pressure 159/91 H 157/84 H 145/78 H Pulse Oximetry 99 Body Mass Index 41.1 Labs Results: 08/14/20 07:37 08/14/20 07:37 Labs: Laboratory Results - last 48 hr 08/13/20 08/14/20 08/14/20 18:39 07:37 07:37 WBC 7.3 RBC 4.37 Hgb 10.9 L Hct 34.9 L MCV 79.9 L MCH 24.9 L MCHC 31.2 RDW 12.6 Plt Count 327 MPV 9.8 Immature Gran % (Auto) 0.4 Neut % (Auto) 63.2 Lymph % (Auto) 23.9 [place] % (Auto) 9.2 Eos % (Auto) 2.9 Baso % (Auto) 0.4 Lymph # (Auto) 1.7 [place] # (Auto) 0.7 Eos # (Auto) 0.2 Baso # (Auto) 0.0 Abs Immat Gran (auto) 0.03 Absolute Neuts (auto) 4.6 Absolute Nucleated RBC 0.000 Nucleated RBC % (auto) 0.0 Sodium 137 Potassium 4.1 Chloride 105 Carbon Dioxide 25 Anion Gap 11 L BUN 9 Creatinine 0.69 Estim Creat Clear Calc 118.7 Estimated GFR > 60 Fasting Glucose 90 Estimat Average Glucose Hemoglobin A1c % Calcium 9.3 Total Bilirubin 0.2 Direct Bilirubin 0.2 AST 16 ALT 21 Alkaline Phosphatase 73 Total Protein 6.8 Albumin 4.1 Triglycerides 85 Cholesterol 142 LDL Cholesterol, Calc 75 HDL Cholesterol 50 TSH 0.87 Beta HCG, Quant < 2 Urine Test 08/14/20 08/14/20 07:37 08:08 WBC RBC Hgb Hct MCV MCH MCHC RDW Plt Count MPV Immature Gran % (Auto) Neut % (Auto) Lymph % (Auto) [place] % (Auto) Eos % (Auto) Baso % (Auto) Lymph # (Auto) [place] # (Auto) Eos # (Auto) Baso # (Auto) Abs Immat Gran (auto) Absolute Neuts (auto) Absolute Nucleated RBC Nucleated RBC % (auto) Sodium Potassium Chloride Carbon Dioxide Anion Gap BUN Creatinine Estim Creat Clear Calc Estimated GFR Fasting Glucose Estimat Average Glucose 77 Hemoglobin A1c % 4.3 Calcium Total Bilirubin Direct Bilirubin AST ALT Alkaline Phosphatase Total Protein Albumin Triglycerides Cholesterol LDL Cholesterol, Calc HDL Cholesterol TSH Beta HCG, Quant Urine Test NEGATIVE Medications Medications Current Medications Generic Name Dose Route Start Last Admin Trade Name Freq PRN Reason Stop Dose Admin Acetaminophen 650 mg 08/13/20 00:00 08/14/20 11:07 Acetaminophen 325 Mg Tablet PO 650 mg Q6H PRN Administration Headache/Pain Mild Scale (1-3) Al Hydroxide/Mg Hydroxide 30 ml 08/13/20 00:00 Magnesium Hydrox/Alum Hydrox 30 Ml Oral.Susp PO Q6H PRN Heartburn/Nausea Buprenorphine/Naloxone 0.5 tab 08/13/20 13:48 08/14/20 08:11 Buprenorphine/Naloxone 8/2 Mg Tab.Subl SUBLINGUAL 0.5 tab BID PRN Administration moderate to severe pain Chlorpromazine HCl 50 mg 08/14/20 10:00 Chlorpromazine Hcl 25 Mg Tablet PO QID PRN Anxiety Cyclobenzaprine HCl 10 mg 08/13/20 00:57 08/14/20 09:11 Cyclobenzaprine Hcl 10 Mg Tablet PO 10 mg TID PRN Administration Pain, Mild (Pain Scale 1-3) Divalproex Sodium 1,250 mg 08/13/20 13:50 08/14/20 07:47 Divalproex Sodium Er 250 Mg Tab.Er.24h PO 1,250 mg DAILY JOSE DANIEL Administration Hydroxyzine HCl 25 mg 08/13/20 00:00 08/14/20 00:38 Hydroxyzine Hcl 25 Mg Tablet PO 25 mg BEDTIME PRN Administration Anxiety Magnesium Hydroxide 30 ml 08/13/20 00:00 Milk Of Magnesia 30 Ml Oral.Susp PO DAILY PRN Constipation Naltrexone HCl 50 mg 08/13/20 09:00 08/14/20 07:48 Naltrexone Hcl 50 Mg Tablet PO 50 mg DAILY JOSE DANIEL Administration Nicotine 21 mg 08/13/20 12:56 Nicotine 21 Mg Patch.Td24 TRANSDERMA DAILY PRN smoking cessation Nicotine Polacrilex 4 mg 08/13/20 13:54 08/13/20 18:04 Nicotine Polacrilex 2 Mg Gum BUCCAL 4 mg Q2H PRN Administration Nicotine Cravings Omeprazole 20 mg 08/13/20 06:30 08/14/20 05:17 Omeprazole 20 Mg Capsule.Dr PO 20 mg DAILY@0630 JOSE DANIEL Administration Prazosin HCl 5 mg 08/13/20 21:00 08/13/20 20:04 Prazosin Hcl 1 Mg Capsule PO 5 mg BEDTIME JOSE DANIEL Administration Protocol Risperidone 2 mg 08/13/20 21:00 08/13/20 21:12 Risperidone 2 Mg Tablet PO 2 mg BEDTIME JOSE DANIEL Administration Risperidone 1 mg 08/14/20 09:00 08/14/20 07:48 Risperidone 1 Mg Tablet PO 1 mg DAILY JOSE DANIEL Administration Risperidone 50 mg 08/16/20 12:00 Risperidone Microspheres 50 Mg/2 Ml Syringe IM 08/16/20 12:01 ONCE ONE Trazodone HCl 50 mg 08/13/20 00:00 08/14/20 01:41 Trazodone Hcl 50 Mg Tablet PO 50 mg BEDTIME PRN Administration Insomnia Allergies Allergies Allergy/AdvReac Type Severity Reaction Status Date / Time hydromorphone Allergy Unknown Unknown Verified 08/05/20 14:24 insect venom [INSECT BITES] Allergy Unknown UNKNOWN Verified 08/05/20 14:24 penicillin V Allergy Unknown Unknown Verified 08/05/20 14:24 Penicillins Allergy Unknown UNKNOWN Verified 08/05/20 14:24 sulfamethoxazole Allergy Unknown UNKNOWN Verified 08/05/20 14:24 [From BACTRIM] trimethoprim [From BACTRIM] Allergy Unknown UNKNOWN Verified 08/05/20 14:24 From DILAUDID Allergy Unknown RASH Uncoded 11/06/19 16:41 Assessment & Plan Assessment & Plan (1) Bipolar 1 disorder: Status: Acute Code(s): F31.9 - Bipolar disorder, unspecified (2) Alcohol abuse: Status: Acute Code(s): F10.10 - Alcohol abuse, uncomplicated (3) Knee pain: Qualifiers: Chronicity: chronic Laterality: right Qualified Code(s): M25.561 - Pain in right knee; G89.29 - Other chronic pain Status: Acute Code(s): M25.569 - Pain in unspecified knee Assessment and Plan: IMPRESSION: Patient is a 44-year-old female with history of bipolar disorder, alcohol abuse, emotional reactivity and PTSD who presents for manic symptoms in the community having been off Risperdal for 2 weeks. Patient presents as moderately manic. But though patient has manic behaviors in the community and on the unit, she is also with enough insight and knows her diagnosis, medications and that she is currently ?revved up? and that it is likely due to being off Risperdal Consta for 2 weeks (and may be partially triggered by abrupt discontinuation of alcohol). She says she has been taking Depakote regularly and wants to get back on Consta. Though she can be intermit tently unreasonably demanding, she can also be friendly, redirectable and cooperative. Plan Patient on CV Q 15 minutes checks Labs reviewed and are grossly within normal limits, however no urine test found. Patient reports she has been taking Depakote up until day of admission. She did get 1 dose today before test. Will get serum test Will continue Depakote Will restart Risperdal Consta 50mg; patient is interested in Invega Sustenna since it is longer lasting Will increasing continue Risperdal p.o. for now given that she is manic Greater than 50% of the session was spent on counseling and/or coordination of care Reason for contiued inpatient stay Substantial Risk for: rapid decompensation
[2020-08-14 18:00] VITALS: RESP 16
[2020-08-14 20:25] VITALS: BP 135/83; PULSE 94; RESP 16; TEMP 36.9
[2020-08-14 20:35] VITALS: BP 135/83; PULSE 94
[2020-08-14] MEDS: Prazosin HCL 1 MG CAPSULE 5 MG PO (20:35)
[2020-08-14] MEDS: risperiDONE 2 MG TABLET PO (20:35)
[2020-08-15] MEDS: Acetaminophen 325 MG TABLET 650 MG PO ×2 (02:52→18:22)
[2020-08-15] MEDS: Cyclobenzaprine HCl 10 MG TABLET PO ×3 (02:52→21:05)
[2020-08-15] MEDS: Buprenorphine/Naloxone 8/2 mg TAB.SUBL 0.5 TAB SUBLINGUAL ×2 (03:45→22:25)
[2020-08-15 05:45] VITALS: BP 136/73; PULSE 101; TEMP 35.9
[2020-08-15 07:28] LABS: Ammonia 31 umol/L (13-55)
[2020-08-15 07:43] LABS: Alanine Aminotransferase 17 U/L (0-31); Albumin Level 4.1 g/dL (3.5-5.0); Alkaline Phosphatase 71 U/L (39-117); Aspartate Amino Transferase 24 U/L (5-31); Bilirubin Direct 0.2 mg/dL (0.0-0.5); Bilirubin Total 0.3 mg/dL (0.0-1.0)
[2020-08-15 07:44] LABS: Valproate 48.7 mcg/mL (50.0-100.0)
[2020-08-15] MEDS: Divalproex Sodium ER 250 MG TAB.ER.24H 1250 MG PO (07:52)
[2020-08-15] MEDS: risperiDONE 1 MG TABLET PO (07:53)
[2020-08-15] MEDS: Naltrexone HCl 50 MG TABLET PO (07:53)
[2020-08-15] MEDS: Omeprazole 20 MG CAPSULE.DR PO (07:53)
--- NOTE | 2020-08-15 08:56 | HO.PSYCHPN ---
Subjective Subjective Date of Service: 08/15/20 Reason For Visit: Depression Interim History: Patient was seen and discussed in rounds today. She is doing much much better today after a very difficult day yesterday with eventual need to get chemically restrained. She has slept most of the afternoon, getting up for food. She was incontinent during the night and was able to get up and take a shower and go back to bed. She has been med compliant and is aware of doing a lot better. She denies any side effects. No changes were made today. Depakote level was ordered. She does complain about problems with her knee and pain and a physical therapy consult will be ordered. Medication Compliance: Yes Side effects from medications: No Review of Systems Review of Systems Except for complained of knee pain. Yes all other systems are reviewed and are negative Mental Status Exam Mental Status Exam Narrative: In today's visit she is alert, oriented and very pleasant. Normal speech. Good eye contact. Affect is appropriate and varied. No signs of psychosis. Denies any hallucinations. No delusions. No SI. Cognitively he is intact. Judgment is intact Diagnostics Vital Signs (24Hr): Vital Signs - 24 hr 08/14/20 18:00 08/14/20 20:25 08/14/20 20:35 Temperature 98.4 F Pulse Rate 94 94 Respiratory Rate 16 16 Blood Pressure 135/83 135/83 08/15/20 05:45 Temperature 96.7 F L Pulse Rate 101 H Respiratory Rate Blood Pressure 136/73 Body Mass Index 41.1 Labs Results: 08/14/20 07:37 08/14/20 07:37 Labs: Laboratory Results - last 48 hr 08/13/20 08/14/20 08/14/20 18:39 07:37 07:37 WBC 7.3 RBC 4.37 Hgb 10.9 L Hct 34.9 L MCV 79.9 L MCH 24.9 L MCHC 31.2 RDW 12.6 Plt Count 327 MPV 9.8 Immature Gran % (Auto) 0.4 Neut % (Auto) 63.2 Lymph % (Auto) 23.9 [place] % (Auto) 9.2 Eos % (Auto) 2.9 Baso % (Auto) 0.4 Lymph # (Auto) 1.7 [place] # (Auto) 0.7 Eos # (Auto) 0.2 Baso # (Auto) 0.0 Abs Immat Gran (auto) 0.03 Absolute Neuts (auto) 4.6 Absolute Nucleated RBC 0.000 Nucleated RBC % (auto) 0.0 Sodium 137 Potassium 4.1 Chloride 105 Carbon Dioxide 25 Anion Gap 11 L BUN 9 Creatinine 0.69 Estim Creat Clear Calc 118.7 Estimated GFR > 60 Fasting Glucose 90 Estimat Average Glucose Hemoglobin A1c % Calcium 9.3 Total Bilirubin 0.2 Direct Bilirubin 0.2 AST 16 ALT 21 Alkaline Phosphatase 73 Ammonia Total Protein 6.8 Albumin 4.1 Triglycerides 85 Cholesterol 142 LDL Cholesterol, Calc 75 HDL Cholesterol 50 TSH 0.87 Beta HCG, Quant < 2 Urine Test Valproic Acid 08/14/20 08/14/20 08/15/20 07:37 08:08 07:02 WBC RBC Hgb Hct MCV MCH MCHC RDW Plt Count MPV Immature Gran % (Auto) Neut % (Auto) Lymph % (Auto) [place] % (Auto) Eos % (Auto) Baso % (Auto) Lymph # (Auto) [place] # (Auto) Eos # (Auto) Baso # (Auto) Abs Immat Gran (auto) Absolute Neuts (auto) Absolute Nucleated RBC Nucleated RBC % (auto) Sodium Potassium Chloride Carbon Dioxide Anion Gap BUN Creatinine Estim Creat Clear Calc Estimated GFR Fasting Glucose Estimat Average Glucose 77 Hemoglobin A1c % 4.3 Calcium Total Bilirubin 0.3 Direct Bilirubin 0.2 AST 24 D ALT 17 Alkaline Phosphatase 71 Ammonia Total Protein 7.0 Albumin 4.1 Triglycerides Cholesterol LDL Cholesterol, Calc HDL Cholesterol TSH Beta HCG, Quant Urine Test NEGATIVE Valproic Acid 48.7 L 08/15/20 07:02 WBC RBC Hgb Hct MCV MCH MCHC RDW Plt Count MPV Immature Gran % (Auto) Neut % (Auto) Lymph % (Auto) [place] % (Auto) Eos % (Auto) Baso % (Auto) Lymph # (Auto) [place] # (Auto) Eos # (Auto) Baso # (Auto) Abs Immat Gran (auto) Absolute Neuts (auto) Absolute Nucleated RBC Nucleated RBC % (auto) Sodium Potassium Chloride Carbon Dioxide Anion Gap BUN Creatinine Estim Creat Clear Calc Estimated GFR Fasting Glucose Estimat Average Glucose Hemoglobin A1c % Calcium Total Bilirubin Direct Bilirubin AST ALT Alkaline Phosphatase Ammonia 31 Total Protein Albumin Triglycerides Cholesterol LDL Cholesterol, Calc HDL Cholesterol TSH Beta HCG, Quant Urine Test Valproic Acid Medications Medications Current Medications Generic Name Dose Route Start Last Admin Trade Name Freq PRN Reason Stop Dose Admin Acetaminophen 650 mg 08/13/20 00:00 08/15/20 02:52 Acetaminophen 325 Mg Tablet PO 650 mg Q6H PRN Administration Headache/Pain Mild Scale (1-3) Al Hydroxide/Mg Hydroxide 30 ml 08/13/20 00:00 Magnesium Hydrox/Alum Hydrox 30 Ml Oral.Susp PO Q6H PRN Heartburn/Nausea Buprenorphine/Naloxone 0.5 tab 08/13/20 13:48 08/15/20 03:45 Buprenorphine/Naloxone 8/2 Mg Tab.Subl SUBLINGUAL 0.5 tab BID PRN Administration moderate to severe pain Chlorpromazine HCl 50 mg 08/14/20 10:00 Chlorpromazine Hcl 25 Mg Tablet PO QID PRN Anxiety Cyclobenzaprine HCl 10 mg 08/13/20 00:57 08/15/20 02:52 Cyclobenzaprine Hcl 10 Mg Tablet PO 10 mg TID PRN Administration Pain, Mild (Pain Scale 1-3) Divalproex Sodium 1,250 mg 08/13/20 13:50 08/15/20 07:52 Divalproex Sodium Er 250 Mg Tab.Er.24h PO 1,250 mg DAILY JOSE DANIEL Administration Hydroxyzine HCl 25 mg 08/13/20 00:00 08/14/20 00:38 Hydroxyzine Hcl 25 Mg Tablet PO 25 mg BEDTIME PRN Administration Anxiety Magnesium Hydroxide 30 ml 08/13/20 00:00 Milk Of Magnesia 30 Ml Oral.Susp PO DAILY PRN Constipation Naltrexone HCl 50 mg 08/13/20 09:00 08/15/20 07:53 Naltrexone Hcl 50 Mg Tablet PO 50 mg DAILY JOSE DANIEL Administration Nicotine 21 mg 08/13/20 12:56 Nicotine 21 Mg Patch.Td24 TRANSDERMA DAILY PRN smoking cessation Nicotine Polacrilex 4 mg 08/13/20 13:54 08/13/20 18:04 Nicotine Polacrilex 2 Mg Gum BUCCAL 4 mg Q2H PRN Administration Nicotine Cravings Omeprazole 20 mg 08/13/20 06:30 08/15/20 07:53 Omeprazole 20 Mg Capsule.Dr PO 20 mg DAILY@0630 JOSE DANIEL Administration Prazosin HCl 5 mg 08/13/20 21:00 08/14/20 20:35 Prazosin Hcl 1 Mg Capsule PO 5 mg BEDTIME JOSE DANIEL Administration Protocol Risperidone 2 mg 08/13/20 21:00 08/14/20 20:35 Risperidone 2 Mg Tablet PO 2 mg BEDTIME JOSE DANIEL Administration Risperidone 1 mg 08/14/20 09:00 08/15/20 07:53 Risperidone 1 Mg Tablet PO 1 mg DAILY JOSE DANIEL Administration Risperidone 50 mg 08/16/20 12:00 Risperidone Microspheres 50 Mg/2 Ml Syringe IM 08/16/20 12:01 ONCE ONE Trazodone HCl 50 mg 08/13/20 00:00 08/14/20 01:41 Trazodone Hcl 50 Mg Tablet PO 50 mg BEDTIME PRN Administration Insomnia Allergies Allergies Allergy/AdvReac Type Severity Reaction Status Date / Time hydromorphone Allergy Unknown Unknown Verified 08/05/20 14:24 insect venom [INSECT BITES] Allergy Unknown UNKNOWN Verified 08/05/20 14:24 penicillin V Allergy Unknown Unknown Verified 08/05/20 14:24 Penicillins Allergy Unknown UNKNOWN Verified 08/05/20 14:24 sulfamethoxazole Allergy Unknown UNKNOWN Verified 08/05/20 14:24 [From BACTRIM] trimethoprim [From BACTRIM] Allergy Unknown UNKNOWN Verified 08/05/20 14:24 From DILAUDID Allergy Unknown RASH Uncoded 11/06/19 16:41 Assessment & Plan Assessment & Plan (1) Bipolar 1 disorder: Status: Acute Code(s): F31.9 - Bipolar disorder, unspecified Assessment and Plan: Continue current regimen and plans (2) Alcohol abuse: Status: Acute Code(s): F10.10 - Alcohol abuse, uncomplicated (3) Knee pain: Qualifiers: Chronicity: chronic Laterality: right Qualified Code(s): M25.561 - Pain in right knee; G89.29 - Other chronic pain Status: Acute Code(s): M25.569 - Pain in unspecified knee Assessment and Plan: IMPRESSION: Patient is a 44-year-old female with history of bipolar disorder, alcohol abuse, emotional reactivity and PTSD who presents for manic symptoms in the community having been off Risperdal for 2 weeks. Patient presents as moderately manic. But though patient has manic behaviors in the community and on the unit, she is also with enough insight and knows her diagnosis, medications and that she is currently ?revved up? and that it is likely due to being off Risperdal Consta for 2 weeks (and may be partially triggered by abrupt discontinuation of alcohol). She says she has been taking Depakote regularly and wants to get back on Consta. Though she can be intermittently unreasonably demanding, she can also be friendly, redirectable and cooperative. Plan Patient on CV Q 15 minutes checks Labs reviewed and are grossly within normal limits, however no urine test found. Patient reports she has been taking Depakote up until day of admission. She did get 1 dose today before test. Will get serum test Will continue Depakote Will restart Risperdal Consta 50mg; patient is interested in Invega Sustenna since it is longer lasting Will increasing continue Risperdal p.o. for now given that she is manic Greater than 50% of the session was spent on counseling and/or coordination of care Reason for contiued inpatient stay Substantial Risk for: med/psych decompensation
[2020-08-15] MEDS: chlorproMAZINE HCl 25 MG TABLET 50 MG PO ×3 (09:59→21:05)
[2020-08-15 18:00] VITALS: RESP 14
[2020-08-15 20:03] VITALS: BP 138/100; PULSE 106
[2020-08-15] MEDS: risperiDONE 2 MG TABLET PO (20:03)
[2020-08-15] MEDS: Prazosin HCL 1 MG CAPSULE 5 MG PO (20:03)
[2020-08-15] MEDS: traZODone HCL 50 MG TABLET PO (23:40)
[2020-08-15] MEDS: hydrOXYzine HCL 25 MG TABLET PO (23:40)
[2020-08-16] MEDS: Nicotine Polacrilex 2 MG GUM 4 MG BUCCAL ×3 (00:53→13:41)
[2020-08-16 05:00] VITALS: BP 155/74; PULSE 99; RESP 18; TEMP 36.3; O2SAT 99
--- NOTE | 2020-08-16 05:00 | PC.NURSE ---
Pt awake most of the night. restless, pacing, loud, talking and laughing to self, labile and hysterical at times, respomda to internal stimuli. 2345,Traz 50, Atarax 25, 0205 Traz50, CPZ 50, Tylenol 650, Flexeril, Continue to ensure safety, set clear and consistent limits and expectations.
[2020-08-16] MEDS: Omeprazole 20 MG CAPSULE.DR PO (05:21)
[2020-08-16] MEDS: Buprenorphine/Naloxone 8/2 mg TAB.SUBL 0.5 TAB SUBLINGUAL (05:21)
[2020-08-16] MEDS: chlorproMAZINE HCl 25 MG TABLET 50 MG PO (07:26)
[2020-08-16] MEDS: Naltrexone HCl 50 MG TABLET PO (07:27)
[2020-08-16] MEDS: risperiDONE 1 MG TABLET PO (07:27)
[2020-08-16] MEDS: Divalproex Sodium ER 250 MG TAB.ER.24H 1250 MG PO (07:27)
[2020-08-16 08:30] LABS: Valproate 57.5 mcg/mL (50.0-100.0)
--- NOTE | 2020-08-16 09:21 | PC.NURSE ---
Three Day Notice signed on 08/16/20. It will be up on 08/19/20.
[2020-08-16] MEDS: Acetaminophen 325 MG TABLET 650 MG PO ×2 (09:54→16:26)
[2020-08-16] MEDS: Cyclobenzaprine HCl 10 MG TABLET PO ×2 (09:55→16:28)
[2020-08-16] MEDS: risperiDONE 2 MG TABLET PO ×2 (10:12→21:58)
[2020-08-16] MEDS: Throat Lozenge, Medicated LOZENGE 1 LOZENGE MUCOUS MEM (13:41)
--- NOTE | 2020-08-16 15:32 | P.PNPSI_ITS ---
Subjective Subjective Date of Service: 08/16/20 Reason For Visit: Depression Subjective Notes: 3 Day Interim History: Patient is friendly on approach. She says she did have few flip out over the weekend but otherwise is feeling a little better. Dust Collector Operator asks and she denies any SI or HI at all and and laughingly reiterates that on not going to do anything to Trump. Patient does say she really wants to smoke and if we do not take her outside for a cigarette, she is going to put in a 3 day notice, which conventional mortgage underwriter explains is fully her right to do. But that said, She remains reasonable and willing to discuss her care. Patient said that she has been on Risperdal Consta since started on it at [facility]. She said that her current outpatient provider switched her to p.o. though she had been off for both for few weeks. She said she would like to be on a long-acting injectable and likes the idea of Invega sustenna since it last for a month. Patient asked about naltrexone and Vivitrol but agreed to stay on Suboxone for chronic intermittent knee pain. Naltrexone was ordered over the weekend but it is now discontinued. patient was articulate and expressed her ongoing frustration with mood lability and emotional reactivity. she became tearful talking about various hardships and then switched over to being angry. Dust Collector Operator mentioned that it seems it is preferable for patient to feel anger instead of sadness to which she agreed and said she is tired of being sad. She said she wishes she could just be more stable however and does report that when she is consistently on both Depakote and Risperdal she overall does okay. over the weekend patient did have an outburst on 08/14, through which chair, was naked in the halls and required both physical and chemical restraint Mental Status Exam Mental Status Exam Narrative: Pt is alert and oriented; behavior is cooperative, friendly and calm, sometimes tearful and sometimes angry; patient is not in distress; dressed in casual cloths with good hygiene; mood is described as better and affect mildly labile; eye contact appropriate; Speech is normal rate, volume and prosody; not pressured. no psychomotor agitation present; thought process is organized, linear, logical and goal directed. Thought content is on treatment and smoking a cigarette and otherwise pertinent to relevant topics and without any delusional content, paranoid ideations or grandiosity; denies any SI; denies any HI. There is no evidence of perceptual disturbance and she denies AVH. Patients insight and judgment appear impaired. Diagnostics Vital Signs (24Hr): Vital Signs - 24 hr 08/15/20 18:00 08/15/20 20:03 08/16/20 05:00 Temperature 97.4 F Pulse Rate 106 H 99 Respiratory Rate 14 18 Blood Pressure 138/100 H 155/74 H Pulse Oximetry 99 Body Mass Index 41.1 Labs Results: 08/14/20 07:37 08/14/20 07:37 Labs: Laboratory Results - last 48 hr 08/15/20 08/15/20 08/16/20 07:02 07:02 07:45 Total Bilirubin 0.3 Direct Bilirubin 0.2 AST 24 D ALT 17 Alkaline Phosphatase 71 Ammonia 31 Total Protein 7.0 Albumin 4.1 Valproic Acid 48.7 L 57.5 Medications Medications Current Medications Generic Name Dose Route Start Last Admin Trade Name Freq PRN Reason Stop Dose Admin Acetaminophen 650 mg 08/13/20 00:00 08/16/20 09:54 Acetaminophen 325 Mg Tablet PO 650 mg Q6H PRN Administration Headache/Pain Mild Scale (1-3) Al Hydroxide/Mg Hydroxide 30 ml 08/13/20 00:00 Magnesium Hydrox/Alum Hydrox 30 Ml Oral.Susp PO Q6H PRN Heartburn/Nausea Benzocaine 1 lozenge 08/16/20 12:10 08/16/20 13:41 Throat Lozenge, Medicated Lozenge MUCOUS MEM 1 lozenge Q2H PRN Administration Sore Throat Buprenorphine/Naloxone 0.5 tab 08/13/20 13:48 08/16/20 05:21 Buprenorphine/Naloxone 8/2 Mg Tab.Subl SUBLINGUAL 0.5 tab BID PRN Administration moderate to severe pain Chlorpromazine HCl 50 mg 08/14/20 10:00 08/16/20 07:26 Chlorpromazine Hcl 25 Mg Tablet PO 50 mg QID PRN Administration Anxiety Cyclobenzaprine HCl 10 mg 08/13/20 00:57 08/16/20 09:55 Cyclobenzaprine Hcl 10 Mg Tablet PO 10 mg TID PRN Administration Pain, Mild (Pain Scale 1-3) Divalproex Sodium 1,250 mg 08/13/20 13:50 08/16/20 07:27 Divalproex Sodium Er 250 Mg Tab.Er.24h PO 1,250 mg DAILY JOSE DANIEL Administration Hydroxyzine HCl 25 mg 08/13/20 00:00 08/15/20 23:40 Hydroxyzine Hcl 25 Mg Tablet PO 25 mg BEDTIME PRN Administration Anxiety Magnesium Hydroxide 30 ml 08/13/20 00:00 Milk Of Magnesia 30 Ml Oral.Susp PO DAILY PRN Constipation Nicotine 21 mg 08/13/20 12:56 Nicotine 21 Mg Patch.Td24 TRANSDERMA DAILY PRN smoking cessation Nicotine Polacrilex 4 mg 08/13/20 13:54 08/16/20 13:41 Nicotine Polacrilex 2 Mg Gum BUCCAL 4 mg Q2H PRN Administration Nicotine Cravings Omeprazole 20 mg 08/13/20 06:30 08/16/20 05:21 Omeprazole 20 Mg Capsule.Dr PO 20 mg DAILY@0630 JOSE DANIEL Administration Prazosin HCl 5 mg 08/13/20 21:00 08/15/20 20:03 Prazosin Hcl 1 Mg Capsule PO 5 mg BEDTIME JOSE DANIEL Administration Protocol Risperidone 2 mg 08/16/20 21:00 Risperidone 2 Mg Tablet PO BID JOSE DANIEL Trazodone HCl 50 mg 08/13/20 00:00 08/15/20 23:40 Trazodone Hcl 50 Mg Tablet PO 50 mg BEDTIME PRN Administration Insomnia Allergies Allergies Allergy/AdvReac Type Severity Reaction Status Date / Time hydromorphone Allergy Unknown Unknown Verified 08/05/20 14:24 insect venom [INSECT BITES] Allergy Unknown UNKNOWN Verified 08/05/20 14:24 penicillin V Allergy Unknown Unknown Verified 08/05/20 14:24 Penicillins Allergy Unknown UNKNOWN Verified 08/05/20 14:24 sulfamethoxazole Allergy Unknown UNKNOWN Verified 08/05/20 14:24 [From BACTRIM] trimethoprim [From BACTRIM] Allergy Unknown UNKNOWN Verified 08/05/20 14:24 From DILAUDID Allergy Unknown RASH Uncoded 11/06/19 16:41 Assessment & Plan Assessment & Plan (1) Bipolar 1 disorder: Status: Acute Code(s): F31.9 - Bipolar disorder, unspecified Assessment and Plan: Continue current regimen and plans (2) Alcohol abuse: Status: Acute Code(s): F10.10 - Alcohol abuse, uncomplicated (3) Knee pain: Qualifiers: Chronicity: chronic Laterality: right Qualified Code(s): M25.561 - Pain in right knee; G89.29 - Other chronic pain Status: Acute Code(s): M25.569 - Pain in unspecified knee Assessment and Plan: IMPRESSION: Patient is a 44-year-old female with history of bipolar disorder, alcohol abuse, emotional reactivity and PTSD who presents for manic symptoms in the community having been off Risperdal for 2 weeks. Patient presents as moderately manic. But though patient has manic behaviors in the community and on the unit, she is also with enough insight and knows her diagnosis, medications and that she is currently ?revved up? and that it is likely due to being off Risperdal Consta for 2 weeks (and may be partially triggered by abrupt discontinuation of alcohol). She says she has been taking Depakote regularly and wants to get back on Consta. Though she can be intermittently unreasonably demanding, she can also be friendly, redirectable and cooperative. 08/16 Patient had tough weekend, with manic behaviors needing physical restraint and IM Haldol. Patient is doing better today and agreed to Invega Sustenna medications since that last for a month. Dust Collector Operator spoke with patient's outpatient provider Marcos Kaur at [facility] who agrees with this plan and says there is no reason not to switch to Invega Sustenna. although patient does have intermittent mood lability, she remains articulate and with insight and invested in her treatment. she has a 3 day notice in that is due . Given her recent somewhat wild manic behaviors this , patient should remain on unit for continued demonstration of her stability. If she does remains stable will consider discharge on 08/18 Plan Signed a 3day notice Q 15 minutes checks Start Invega Sustenna 234 mg IM; will follow up with 117 mg in 7 days ( patient never got Risperdal Consta) will keep p.o. medication on for a day or so given recent mood lability and manic behaviors however patient does seem to be improving continue Suboxone 4 mg p.r.n. for now; patient was accidentally started on naltrexone but this is been discontinue and was discussed with patient Labs: neg serum test Depakote level WNL labs/liver WNL Greater than 50% of the session was spent on counseling and/or coordination of care Reason for contiued inpatient stay Substantial Risk for: rapid decompensation
[2020-08-16] MEDS: Paliperidone Palmitate 234 MG/1.5 ML SYRINGE IM (15:42)
[2020-08-16 21:50] VITALS: BP 130/82; PULSE 91; TEMP 36.8
[2020-08-16 21:57] VITALS: BP 130/82; PULSE 91
[2020-08-16] MEDS: Prazosin HCL 1 MG CAPSULE 5 MG PO (21:57)
[2020-08-17] MEDS: Cyclobenzaprine HCl 10 MG TABLET PO ×3 (03:45→23:47)
[2020-08-17] MEDS: Acetaminophen 325 MG TABLET 650 MG PO ×3 (03:46→19:13)
[2020-08-17] MEDS: Nicotine Polacrilex 2 MG GUM 4 MG BUCCAL (05:10)
[2020-08-17] MEDS: Omeprazole 20 MG CAPSULE.DR PO (05:10)
[2020-08-17 06:00] VITALS: BP 132/75; PULSE 112; TEMP 36.4; O2SAT 98
[2020-08-17] MEDS: Divalproex Sodium ER 250 MG TAB.ER.24H 1250 MG PO (08:12)
[2020-08-17] MEDS: chlorproMAZINE HCl 25 MG TABLET 50 MG PO ×2 (08:12→23:24)
[2020-08-17] MEDS: risperiDONE 2 MG TABLET PO ×2 (08:12→21:17)
--- NOTE | 2020-08-17 13:10 | P.PNPSI_ITS ---
Subjective Subjective Date of Service: 08/17/20 Reason For Visit: Depression Interim History: Patient reports she is feeling better. However she still struggles with mood lability, often breaking down into tears then getting angry. It came to quality analyst/technical writer's attention that she had been leaving threatening voice mails on her ex-'s phone, trying to get money that he owes her. Hydraulic Corrugating Machine Operator add ressed this with patient who acknowledged that this was true. She says she has no intention or plan to hurt him and never would, but is just trying to get the money he owes her and child support. patient agreed that this must stop and she will do it no longer (has not since weekend). Patient is still mildly hypomanic, talking a little fast with associated antics; she can be intrusive, making personalize comments to peers and staff, though she remains redirectable. patient is sleeping better however; she denies any SI or HI and she said she is feeling more like herself, less revved up. She denies any side effects from medication. social Work discussed case with patient's daughter ( patient gave verbal permission and DIVYA) who agrees that patient is doing better, however is still a little manic Medication Compliance: Yes Side effects from medications: No Attending Groups: Yes Mental Status Exam Mental Status Exam Narrative: Pt is alert and oriented; behavior is cooperative, friendly, mostly calm, sometimes expansive, tearful and sometimes angry; patient is not in distress; dressed in casual cloths with good hygiene; mood is described as good and affect mildly labile; eye contact appropriate; Speech is little pressured today; some mild-moderate psychomotor agitation present today; thought process is organized, linear, logical and goal directed. Thought content is on treatment and on smoking a cigarette but otherwise pertinent to relevant topics and without any delusional content, paranoid ideations or grandiosity; denies any SI; denies any HI. There is no evidence of perceptual disturbance and she denies AVH. Patients insight and judgment appear impaired but improving. Diagnostics Vital Signs (24Hr): Vital Signs - 24 hr 08/16/20 21:50 08/16/20 21:57 08/17/20 06:00 Temperature 98.2 F 97.6 F Pulse Rate 91 91 112 H Blood Pressure 130/82 130/82 132/75 Pulse Oximetry 98 Body Mass Index 41.1 Labs Results: 08/14/20 07:37 08/14/20 07:37 Labs: Laboratory Results - last 48 hr 08/16/20 07:45 Valproic Acid 57.5 Medications Medications Current Medications Generic Name Dose Route Start Last Admin Trade Name Freq PRN Reason Stop Dose Admin Acetaminophen 650 mg 08/13/20 00:00 08/17/20 12:36 Acetaminophen 325 Mg Tablet PO 650 mg Q6H PRN Administration Headache/Pain Mild Scale (1-3) Al Hydroxide/Mg Hydroxide 30 ml 08/13/20 00:00 Magnesium Hydrox/Alum Hydrox 30 Ml Oral.Susp PO Q6H PRN Heartburn/Nausea Benzocaine 1 lozenge 08/16/20 12:10 08/16/20 13:41 Throat Lozenge, Medicated Lozenge MUCOUS MEM 1 lozenge Q2H PRN Administration Sore Throat Buprenorphine/Naloxone 0.5 tab 08/13/20 13:48 08/16/20 05:21 Buprenorphine/Naloxone 8/2 Mg Tab.Subl SUBLINGUAL 0.5 tab BID PRN Administration moderate to severe pain Chlorpromazine HCl 50 mg 08/14/20 10:00 08/17/20 08:12 Chlorpromazine Hcl 25 Mg Tablet PO 50 mg QID PRN Administration Anxiety Cyclobenzaprine HCl 10 mg 08/13/20 00:57 08/17/20 03:45 Cyclobenzaprine Hcl 10 Mg Tablet PO 10 mg TID PRN Administration Pain, Mild (Pain Scale 1-3) Divalproex Sodium 1,250 mg 08/13/20 13:50 08/17/20 08:12 Divalproex Sodium Er 250 Mg Tab.Er.24h PO 1,250 mg DAILY JOSE DANIEL Administration Hydroxyzine HCl 25 mg 08/13/20 00:00 08/15/20 23:40 Hydroxyzine Hcl 25 Mg Tablet PO 25 mg BEDTIME PRN Administration Anxiety Magnesium Hydroxide 30 ml 08/13/20 00:00 Milk Of Magnesia 30 Ml Oral.Susp PO DAILY PRN Constipation Nicotine 21 mg 08/13/20 12:56 Nicotine 21 Mg Patch.Td24 TRANSDERMA DAILY PRN smoking cessation Nicotine Polacrilex 4 mg 08/13/20 13:54 08/17/20 05:10 Nicotine Polacrilex 2 Mg Gum BUCCAL 4 mg Q2H PRN Administration Nicotine Cravings Omeprazole 20 mg 08/13/20 06:30 08/17/20 05:10 Omeprazole 20 Mg Capsule. PO 20 mg DAILY@0630 JOSE DANIEL Administration Prazosin HCl 5 mg 08/13/20 21:00 08/16/20 21:57 Prazosin Hcl 1 Mg Capsule PO 5 mg BEDTIME JOSE DANIEL Administration Protocol Risperidone 2 mg 08/16/20 21:00 08/17/20 08:12 Risperidone 2 Mg Tablet PO 2 mg BID JOSE DANIEL Administration Trazodone HCl 50 mg 08/13/20 00:00 08/15/20 23:40 Trazodone Hcl 50 Mg Tablet PO 50 mg BEDTIME PRN Administration Insomnia Allergies Allergies Allergy/AdvReac Type Severity Reaction Status Date / Time hydromorphone Allergy Unknown Unknown Verified 08/05/20 14:24 insect venom [INSECT BITES] Allergy Unknown UNKNOWN Verified 08/05/20 14:24 penicillin V Allergy Unknown Unknown Verified 08/05/20 14:24 Penicillins Allergy Unknown UNKNOWN Verified 08/05/20 14:24 sulfamethoxazole Allergy Unknown UNKNOWN Verified 08/05/20 14:24 [From BACTRIM] trimethoprim [From BACTRIM] Allergy Unknown UNKNOWN Verified 08/05/20 14:24 From DILAUDID Allergy Unknown RASH Uncoded 11/06/19 16:41 Assessment & Plan Assessment & Plan (1) Bipolar 1 disorder: Status: Acute Code(s): F31.9 - Bipolar disorder, unspecified Assessment and Plan: Continue current regimen and plans (2) Alcohol abuse: Status: Acute Code(s): F10.10 - Alcohol abuse, uncomplicated (3) Knee pain: Qualifiers: Chronicity: chronic Laterality: right Qualified Code(s): M25.561 - Pain in right knee; G89.29 - Other chronic pain Status: Acute Code(s): M25.569 - Pain in unspecified knee Assessment and Plan: IMPRESSION: Patient is a 44-year-old female with history of bipolar disorder, alcohol abuse, emotional reactivity and PTSD who presents for manic symptoms in the community having been off Risperdal for 2 weeks. Patient presents as moderately manic. But though patient has manic behaviors in the community and on the unit, she is also with enough insight and knows her diagnosis, medications and that she is currently ?revved up? and that it is likely due to being off Risperdal Consta for 2 weeks (and may be partially tr iggered by abrupt discontinuation of alcohol). She says she has been taking Depakote regularly and wants to get back on Consta. Though she can be intermittently unreasonably demanding, she can also be friendly, redirectable and cooperative. 08/16 Patient had tough weekend, with manic behaviors needing physical restraint and IM Haldol. Patient is doing better today and agreed to Invega Sustenna medications since that last for a month. Hydraulic Corrugating Machine Operator spoke with patient's outpatient provider Marcos Kaur at [facility] who agrees with this plan and says there is no reason not to switch to Invega Sustenna. although patient does have intermittent mood lability, she remains articulate and with insight and invested in her treatment. she has a 3 day notice in that is due ??. Given her recent somewhat wild manic behaviors this weekend, patient should remain on unit for continued demonstration of her stability. Patient a little hypomanic, mildly intrusive but redirectable. Patient is stabilizing but given her manic, aggressive and sexualized behaviors over this past weekend, she likely needs another day or two to continue demonstrating she remains heading towards baseline. Plan Signed a 3day notice Q 15 minutes checks Gave Invega Sustenna 234 mg IM; will follow up with 117 mg in 7 days ( patient never got Risperdal Consta) will keep p.o. medication on for a day or so given recent mood lability and manic behaviors however patient does seem to be improving continue Suboxone 4 mg p.r.n. for now; patient was accidentally started on naltrexone but this is been discontinue and was discussed with patient will get follow-up labs Labs: neg serum test Depakote level WNL labs/liver WNL Greater than 50% of the session was spent on counseling and/or coordination of care Reason for contiued inpatient stay Substantial Risk for: rapid decompensation
[2020-08-17] MEDS: Buprenorphine/Naloxone 8/2 mg TAB.SUBL 0.5 TAB SUBLINGUAL ×2 (13:37→23:23)
[2020-08-17 18:00] VITALS: BP 138/90; PULSE 92; RESP 18; TEMP 36.3; O2SAT 97
[2020-08-17] MEDS: Hydrocortisone 1 % Cream 28.35 GM TUBE 1 APPL TOPICAL ×2 (19:18→22:43)
[2020-08-17 21:17] VITALS: BP 143/99; PULSE 107
[2020-08-17] MEDS: Prazosin HCL 1 MG CAPSULE 5 MG PO (21:17)
[2020-08-18] MEDS: Nicotine Polacrilex 2 MG GUM 4 MG BUCCAL ×2 (00:07→06:01)
[2020-08-18] MEDS: hydrOXYzine HCL 25 MG TABLET PO (01:27)
[2020-08-18] MEDS: traZODone HCL 50 MG TABLET PO (01:27)
[2020-08-18] MEDS: Cyclobenzaprine HCl 10 MG TABLET PO ×2 (04:26→08:26)
[2020-08-18] MEDS: Acetaminophen 325 MG TABLET 650 MG PO (04:26)
[2020-08-18 06:00] VITALS: BP 135/91; PULSE 79; RESP 20; TEMP 36.2; O2SAT 97
[2020-08-18] MEDS: Omeprazole 20 MG CAPSULE.DR PO (06:01)
[2020-08-18] MEDS: chlorproMAZINE HCl 25 MG TABLET 50 MG PO (06:02)
[2020-08-18] MEDS: risperiDONE 2 MG TABLET PO ×2 (08:15→20:36)
[2020-08-18] MEDS: Lidocaine 4 % Patch ADH..PATCH 1 PATCH TRANSDERMA (08:15)
[2020-08-18] MEDS: Divalproex Sodium ER 250 MG TAB.ER.24H 1250 MG PO (08:15)
[2020-08-18] MEDS: HaloperidoL 5 MG TABLET PO (10:12)
[2020-08-18] MEDS: LORazepam 1 MG TABLET 2 MG PO (10:12)
[2020-08-18] MEDS: diphenhydrAMINE HCL 25 MG TABLET 50 MG PO (10:12)
[2020-08-18 10:54] LABS: Estimated Average Glucose 77 mg/dL; Hemoglobin A1c % 4.3 %
[2020-08-18 11:00] LABS: Cholesterol 140 mg/dL; HDL Cholesterol 43 mg/dL; LDL Cholesterol Calculated 80 mg/dl; Triglycerides 86 mg/dL
--- NOTE | 2020-08-18 11:28 | P.PNPSI_ITS ---
Subjective Subjective Date of Service: 08/18/20 Reason For Visit: Depression Interim History: patient agitated this morning And demanding she be discharged. Staff reports she has been making vulgar comments, interrupting others. Patient in agitated moment, pulled the fire alarm saying she wants to a be discharged. At 1st she was difficult to redirect but then she accepted p.r.n. medication (haldol/ativan/bendryl) for agitation. evening staff reporte pt emotional, tearful, expressing hopeless feelings Medication Compliance: Yes Side effects from medications: No Mental Status Exam Mental Status Exam Narrative: Pt is alert and oriented; behavior is agitated, angry, loud; dressed in casual cloths with good hygiene; mood is described as angry affect congruent; eye contact congruent; Speech remains a little pressured today; +psychomotor agitation; thought process is organized, linear, logical and goal directed. Thought content is on discharge; no delusional content, paranoid ideations or grandiosity appreciated; denies any SI or HI; There is no evidence of perceptual disturbance and she denies AVH. Patients insight and judgment appear impaired. Diagnostics Vital Signs (24Hr): Vital Signs - 24 hr 08/17/20 18:00 08/17/20 21:17 08/18/20 06:00 Temperature 97.4 F 97.2 F Pulse Rate 92 107 H 79 Respiratory Rate 18 20 Blood Pressure 138/90 H 143/99 H 135/91 H Pulse Oximetry 97 97 Body Mass Index 41.1 Labs Results: 08/14/20 07:37 08/14/20 07:37 Labs: Laboratory Results - last 48 hr 08/18/20 08/18/20 09:54 09:54 Estimat Average Glucose 77 Hemoglobin A1c % 4.3 Triglycerides 86 Cholesterol 140 LDL Cholesterol, Calc 80 HDL Cholesterol 43 Medications Medications Current Medications Generic Name Dose Route Start Last Admin Trade Name Freq PRN Reason Stop Dose Admin Acetaminophen 650 mg 08/13/20 00:00 08/18/20 04:26 Acetaminophen 325 Mg Tablet PO 650 mg Q6H PRN Administration Headache/Pain Mild Scale (1-3) Al Hydroxide/Mg Hydroxide 30 ml 08/13/20 00:00 Magnesium Hydrox/Alum Hydrox 30 Ml Oral.Susp PO Q6H PRN Heartburn/Nausea Benzocaine 1 lozenge 08/16/20 12:10 08/16/20 13:41 Throat Lozenge, Medicated Lozenge MUCOUS MEM 1 lozenge Q2H PRN Administration Sore Throat Buprenorphine/Naloxone 0.5 tab 08/13/20 13:48 08/17/20 23:23 Buprenorphine/Naloxone 8/2 Mg Tab.Subl SUBLINGUAL 0.5 tab BID PRN Administration moderate to severe pain Chlorpromazine HCl 50 mg 08/14/20 10:00 08/18/20 06:02 Chlorpromazine Hcl 25 Mg Tablet PO 50 mg QID PRN Administration Anxiety Cyclobenzaprine HCl 10 mg 08/13/20 00:57 08/18/20 08:26 Cyclobenzaprine Hcl 10 Mg Tablet PO 10 mg TID PRN Administration Pain, Mild (Pain Scale 1-3) Diphenhydramine HCl 50 mg 08/18/20 10:05 08/18/20 10:12 Diphenhydramine Hcl 25 Mg Tablet PO 50 mg Q4H PRN Administration agitation Divalproex Sodium 1,250 mg 08/13/20 13:50 08/18/20 08:15 Divalproex Sodium Er 250 Mg Tab.Er.24h PO 1,250 mg DAILY JOSE DANIEL Administration Haloperidol 5 mg 08/18/20 10:05 08/18/20 10:12 Haloperidol 5 Mg Tablet PO 5 mg Q4H PRN Administration agitation Hydrocortisone 1 appl 08/17/20 16:37 08/17/20 22:43 Hydrocortisone 1 % Cream 28.35 Gm Tube TOPICAL 1 appl BID PRN Administration Itching Protocol Hydroxyzine HCl 25 mg 08/13/20 00:00 08/18/20 01:27 Hydroxyzine Hcl 25 Mg Tablet PO 25 mg BEDTIME PRN Administration Anxiety Lidocaine 1 patch 08/18/20 09:00 08/18/20 08:15 Lidocaine 4 % Patch Adh..Patch TRANSDERMA 1 patch DAILY JOSE DANIEL Administration Protocol Lorazepam 2 mg 08/18/20 10:05 08/18/20 10:12 Lorazepam 1 Mg Tablet PO 2 mg Q4H PRN Administration agitation Magnesium Hydroxide 30 ml 08/13/20 00:00 Milk Of Magnesia 30 Ml Oral.Susp PO DAILY PRN Constipation Nicotine 21 mg 08/13/20 12:56 Nicotine 21 Mg Patch.Td24 TRANSDERMA DAILY PRN smoking cessation Nicotine Polacrilex 4 mg 08/13/20 13:54 08/18/20 06:01 Nicotine Polacrilex 2 Mg Gum BUCCAL 4 mg Q2H PRN Administration Nicotine Cravings Omeprazole 20 mg 08/13/20 06:30 08/18/20 06:01 Omeprazole 20 Mg Capsule. PO 20 mg DAILY@0630 JOSE DANIEL Administration Prazosin HCl 5 mg 08/13/20 21:00 08/17/20 21:17 Prazosin Hcl 1 Mg Capsule PO 5 mg BEDTIME JOSE DANIEL Administration Protocol Risperidone 2 mg 08/16/20 21:00 08/18/20 08:15 Risperidone 2 Mg Tablet PO 2 mg BID JOSE DANIEL Administration Trazodone HCl 50 mg 08/13/20 00:00 08/18/20 01:27 Trazodone Hcl 50 Mg Tablet PO 50 mg BEDTIME PRN Administration Insomnia Allergies Allergies Allergy/AdvReac Type Severity Reaction Status Date / Time hydromorphone Allergy Unknown Unknown Verified 08/05/20 14:24 insect venom [INSECT BITES] Allergy Unknown UNKNOWN Verified 08/05/20 14:24 penicillin V Allergy Unknown Unknown Verified 08/05/20 14:24 Penicillins Allergy Unknown UNKNOWN Verified 08/05/20 14:24 sulfamethoxazole Allergy Unknown UNKNOWN Verified 08/05/20 14:24 [From BACTRIM] trimethoprim [From BACTRIM] Allergy Unknown UNKNOWN Verified 08/05/20 14:24 From DILAUDID Allergy Unknown RASH Uncoded 11/06/19 16:41 Assessment & Plan Assessment & Plan (1) Bipolar 1 disorder: Status: Acute Code(s): F31.9 - Bipolar disorder, unspecified Assessment and Plan: Continue current regimen and plans (2) Alcohol abuse: Status: Acute Code(s): F10.10 - Alcohol abuse, uncomplicated (3) Knee pain: Qualifiers: Chronicity: chronic Laterality: right Qualified Code(s): M25.561 - Pain in right knee; G89.29 - Other chronic pain Status: Acute Code(s): M25.569 - Pain in unspecified knee Assessment and Plan: IMPRESSION: Patient is a 44-year-old female with history of bipolar disorder, alcohol abuse, emotional reactivity and PTSD who presents for manic symptoms in the community having been off Risperdal for 2 weeks. Patient presents as moderately manic. But though patient has manic behaviors in the community and on the unit, she is also with enough insight and knows her diagnosis, medications and that she is currently ?revved up? and that it is likely due to being off Risperdal Consta for 2 weeks (and may be partially triggered by abrupt discontinuation of alcohol). She says she has been taking Depakote regularly and wants to get back on Consta. Though she can be intermittently unreasonably demanding, she can also be friendly, redirectable and cooperative. HOSPITAL COURSE/DECISIONS 08/16 Patient had tough weekend, with manic behaviors needing physical restraint and IM Haldol. Patient is doing better today and agreed to Invega Sustenna medications since that last for a month. Senior Living Sales Counselor spoke with patient's outpatient provider Marcos Kaur at [facility] who agrees with this plan and says there is no reason not to switch to Invega Sustenna. although patient does have intermittent mood lability, she remains articulate and with insight and in vested in her treatment. she has a 3 day notice in that is due ??. Given her recent somewhat wild manic behaviors this weekend, patient should remain on unit for continued demonstration of her stability. 08/18 Patient continues to have manic behavior, demanding discharge, repeatedly demanding to be taken outside to smoke a cigarette; today she pulled a fire alarm angry that she was not yet discharged. Yesterday, patient asked telegraphic typewriter operator for hot pink scooter so she can get around; though obviously an inappropriate request, patient laughed and this seemed to be a joke and part of her personality which involves light teasing. Team discussed how much patient's behaviors are due to characterlogical/personality traits vs continued sonya. apron worker spoke with patient's daughter says that patient is not at baseline; she normally holds down a job. Given her recent and current behaviors, verbal threats, team agrees that patient remains manic and unstable and unsafe for discharge. - patient received Invega Sustenna 234; she also remains on Risperdal p.o.. telegraphic typewriter operator will consider increasing Depakote level Plan Signed a 3day notice Q 15 minutes checks Bipolar/sonya: consider increasing Depakote level will also get labs to assess ammonia level Gave Invega Sustenna 234 mg IM on 08/16; will follow up with 117 mg on 08/23/20 ( patient never received Risperdal Consta) will keep p.o. medication continued mood lability and manic behaviors -prns available for moderate and severe agitation continue Suboxone 4 mg p.r.n. for now (patient was accidentally started on na ltrexone but this is been discontinued and was discussed with patient hbA1c/Lipids ordered Labs: neg serum test Depakote level WNL labs/liver WNL Greater than 50% of the session was spent on counseling and/or coordination of care Reason for contiued inpatient stay Substantial Risk for: rapid decompensation
[2020-08-18 13:03] LABS: Anion Gap 13 (12-20); Carbon Dioxide 26 mmol/L (22-29); Chloride 104 mmol/L (96-108); Potassium 4.6 mmol/L (3.3-5.1); Sodium 138 mmol/L (135-145)
[2020-08-18 18:00] VITALS: RESP 22
[2020-08-18 20:37] VITALS: BP 133/91; PULSE 92
[2020-08-18] MEDS: Prazosin HCL 1 MG CAPSULE 5 MG PO (20:37)
[2020-08-19] MEDS: Cyclobenzaprine HCl 10 MG TABLET PO ×2 (04:27→16:08)
[2020-08-19] MEDS: Omeprazole 20 MG CAPSULE.DR PO (04:27)
[2020-08-19] MEDS: Acetaminophen 325 MG TABLET 650 MG PO ×2 (04:27→16:09)
[2020-08-19 05:02] VITALS: BP 136/93; PULSE 113; RESP 20; TEMP 36.1; O2SAT 98
--- NOTE | 2020-08-19 05:53 | PC.NURSE ---
Pt. was sleeping and refused removal of lidocaine patch at HS. Pt. later up for medication and removed lidocaine patch.
[2020-08-19] MEDS: Hydrocortisone 1 % Cream 28.35 GM TUBE 1 APPL TOPICAL ×2 (06:14→18:57)
[2020-08-19] MEDS: risperiDONE 2 MG TABLET PO ×2 (09:10→20:47)
[2020-08-19] MEDS: Divalproex Sodium ER 250 MG TAB.ER.24H 1250 MG PO (09:10)
[2020-08-19] MEDS: chlorproMAZINE HCl 25 MG TABLET 50 MG PO ×2 (09:24→14:50)
[2020-08-19] MEDS: Buprenorphine/Naloxone 8/2 mg TAB.SUBL 0.5 TAB SUBLINGUAL ×2 (09:25→18:21)
[2020-08-19] MEDS: Lidocaine 4 % Patch ADH..PATCH 1 PATCH TRANSDERMA (09:46)
--- NOTE | 2020-08-19 12:21 | P.PNPSI_ITS ---
Subjective Subjective Date of Service: 08/19/20 Reason For Visit: Depression Interim History: patient at 1st upset that she was not being discharged today, however as discussion continued, patient agreed that she is not yet at her normal self and the way she has been acting on the unit is not how she normally acts at home. Aircraft Sheet Metal Mechanic discussed pulling the fire alarm which patient agrees was wrong and immature; she was mature in the discussion and both understood and accepted the importance of demonstrating safe behavior on the unit prior to discharge and agrees to rescind her 3 day notice. Of note, patient did sleep through the night last night and was much more subdued yesterday in the afternoon after getting Haldol in the morning. Patient feels she is capable of demonstrating safe and appropriate behavior the unit. Medication Compliance: Yes Side effects from medications: No Attending Groups: Yes Mental Status Exam Mental Status Exam Narrative: Pt is alert and oriented; behavior is calm, friendly, sometimes tearful; dressed in casual cloths with good hygiene; mood is described as sad and affect congruent; eye contact congruent; Speech normal rate, rhythm and prosody; no psychomotor agitation; thought process is organized, linear, logical and goal directed. Thought content is on treatment; no delusional content, paranoid ideations or grandiosity appreciated; denies any SI or HI; There is no evidence of perceptual disturbance and she denies AVH. Patients insight and judgment appear more intact. Diagnostics Vital Signs (24Hr): Vital Signs - 24 hr 08/18/20 18:00 08/18/20 20:37 08/19/20 05:02 Temperature 96.9 F Pulse Rate 92 113 H Respiratory Rate 22 H 20 Blood Pressure 133/91 H 136/93 H Pulse Oximetry 98 Body Mass Index 41.1 Labs Results: 08/14/20 07:37 08/18/20 09:52 Labs: Laboratory Results - last 48 hr 08/18/20 08/18/20 08/18/20 09:52 09:54 09:54 Sodium 138 Potassium 4.6 Chloride 104 Carbon Dioxide 26 Anion Gap 13 Estimat Average Glucose 77 Hemoglobin A1c % 4.3 Triglycerides 86 Cholesterol 140 LDL Cholesterol, Calc 80 HDL Cholesterol 43 Medications Medications Current Medications Generic Name Dose Route Start Last Admin Trade Name Freq PRN Reason Stop Dose Admin Acetaminophen 650 mg 08/13/20 00:00 08/19/20 04:27 Acetaminophen 325 Mg Tablet PO 650 mg Q6H PRN Administration Headache/Pain Mild Scale (1-3) Al Hydroxide/Mg Hydroxide 30 ml 08/13/20 00:00 Magnesium Hydrox/Alum Hydrox 30 Ml Oral.Susp PO Q6H PRN Heartburn/Nausea Benzocaine 1 lozenge 08/16/20 12:10 08/16/20 13:41 Throat Lozenge, Medicated Lozenge MUCOUS MEM 1 lozenge Q2H PRN Administration Sore Throat Buprenorphine/Naloxone 0.5 tab 08/13/20 13:48 08/19/20 09:25 Buprenorphine/Naloxone 8/2 Mg Tab.Subl SUBLINGUAL 0.5 tab BID PRN Administration moderate to severe pain Calamine 1 appl 08/19/20 12:16 Calamine/Zinc Oxide Lotion 177 Ml Bottle TOPICAL QID PRN skin itching Protocol Chlorpromazine HCl 50 mg 08/14/20 10:00 08/19/20 09:24 Chlorpromazine Hcl 25 Mg Tablet PO 50 mg QID PRN Administration Anxiety Cyclobenzaprine HCl 10 mg 08/13/20 00:57 08/19/20 04:27 Cyclobenzaprine Hcl 10 Mg Tablet PO 10 mg TID PRN Administration Pain, Mild (Pain Scale 1-3) Diphenhydramine HCl 50 mg 08/18/20 10:05 08/18/20 10:12 Diphenhydramine Hcl 25 Mg Tablet PO 50 mg Q4H PRN Administration agitation Divalproex Sodium 1,250 mg 08/13/20 13:50 08/19/20 09:10 Divalproex Sodium Er 250 Mg Tab.Er.24h PO 1,250 mg DAILY JOSE DANIEL Administration Haloperidol 5 mg 08/18/20 10:05 08/18/20 10:12 Haloperidol 5 Mg Tablet PO 5 mg Q4H PRN Administration agitation Hydrocortisone 1 appl 08/17/20 16:37 08/19/20 06:14 Hydrocortisone 1 % Cream 28.35 Gm Tube TOPICAL 1 appl BID PRN Administration Itching Protocol Hydroxyzine HCl 25 mg 08/13/20 00:00 08/18/20 01:27 Hydroxyzine Hcl 25 Mg Tablet PO 25 mg BEDTIME PRN Administration Anxiety Lidocaine 1 patch 08/18/20 09:00 08/19/20 09:46 Lidocaine 4 % Patch Adh..Patch TRANSDERMA 1 patch DAILY JOSE DANIEL Administration Protocol Lorazepam 2 mg 08/18/20 10:05 08/18/20 10:12 Lorazepam 1 Mg Tablet PO 2 mg Q4H PRN Administration agitation Magnesium Hydroxide 30 ml 08/13/20 00:00 Milk Of Magnesia 30 Ml Oral.Susp PO DAILY PRN Constipation Metronidazole 1 gm 08/19/20 12:16 Metronidazole 0.75 % Vaginal Gel 70 Gm Tube VAGINAL 08/19/20 12:17 ONCE ONE Multi-Ingred Cream/Lotion/Oil/Oint 1 appl 08/19/20 12:14 Mineral Oil/Petrolatum,White 106 Gm Tube TOPICAL TID PRN dry skin Nicotine 21 mg 08/13/20 12:56 Nicotine 21 Mg Patch.Td24 TRANSDERMA DAILY PRN smoking cessation Nicotine Polacrilex 4 mg 08/13/20 13:54 08/18/20 06:01 Nicotine Polacrilex 2 Mg Gum BUCCAL 4 mg Q2H PRN Administration Nicotine Cravings Omeprazole 20 mg 08/13/20 06:30 08/19/20 04:27 Omeprazole 20 Mg Capsule.Dr PO 20 mg DAILY@0630 JOSE DANIEL Administration Prazosin HCl 5 mg 08/13/20 21:00 08/18/20 20:37 Prazosin Hcl 1 Mg Capsule PO 5 mg BEDTIME JOSE DANIEL Administration Protocol Risperidone 2 mg 08/16/20 21:00 08/19/20 09:10 Risperidone 2 Mg Tablet PO 2 mg BID JOSE DANIEL Administration Trazodone HCl 50 mg 08/13/20 00:00 08/18/20 01:27 Trazodone Hcl 50 Mg Tablet PO 50 mg BEDTIME PRN Administration Insomnia Allergies Allergies Allergy/AdvReac Type Severity Reaction Status Date / Time hydromorphone Allergy Unknown Unknown Verified 08/05/20 14:24 insect venom [INSECT BITES] Allergy Unknown UNKNOWN Verified 08/05/20 14:24 penicillin V Allergy Unknown Unknown Verified 08/05/20 14:24 Penicillins Allergy Unknown UNKNOWN Verified 08/05/20 14:24 sulfamethoxazole Allergy Unknown UNKNOWN Verified 08/05/20 14:24 [From BACTRIM] trimethoprim [From BACTRIM] Allergy Unknown UNKNOWN Verified 08/05/20 14:24 From DILAUDID Allergy Unknown RASH Uncoded 11/06/19 16:41 Assessment & Plan Assessment & Plan (1) Bipolar 1 disorder: Status: Acute Code(s): F31.9 - Bipolar disorder, unspecified Assessment and Plan: Continue current regimen and plans (2) Alcohol abuse: Status: Acute Code(s): F10.10 - Alcohol abuse, uncomplicated (3) Knee pain: Qualifiers: Chronicity: chronic Laterality: right Qualified Code(s): M25.561 - Pain in right knee; G89.29 - Other chronic pain Status: Acute Code(s): M25.569 - Pain in unspecified knee Assessment and Plan: IMPRESSION: Patient is a 44-year-old female with history of bipolar disorder, alcohol abuse, emotional reactivity and PTSD who presents for manic symptoms in the community having been off Risperdal for 2 weeks. Patient presents as moderately manic. But though patient has manic behaviors in the community and on the unit, she is also with enough insight and knows her diagnosis, medications and that she is currently ?revved up? and that it is likely due to being off Risperdal Consta for 2 weeks (and may be partially triggered by abrupt discontinuation of alcohol). She says she has been taking Depakote regularly and wants to get back on Consta. Though she can be intermitt ently unreasonably demanding, she can also be friendly, redirectable and cooperative. HOSPITAL COURSE/DECISIONS 08/16 Patient had tough weekend, with manic behaviors needing physical restraint and IM Haldol. Patient is doing better today and agreed to Invega Sustenna medications since that last for a month. Aircraft Sheet Metal Mechanic spoke with patient's outpatient provider Marcos Kaur at [facility] who agrees with this plan and says there is no reason not to switch to Invega Sustenna. although patient does have intermittent mood lability, she remains articulate and with insight and invested in her treatment. she has a 3 day notice in that is due ??. Given her recent somewhat wild manic behaviors this weekend, patient should remain on unit for continued demonstration of her stability. -patient received Invega Sustenna 234; she also remains on Risperdal p.o.. 08/18 Patient continues to have manic behavior, demanding discharge, repeatedly demanding to be taken outside to smoke a cigarette; today she pulled a fire alarm angry that she was not yet discharged. Yesterday, patient asked designer writer for hot pink scooter so she can get around; though obviously an inappropriate request, patient laughed and this seemed to be a joke and part of her personality which involves light teasing. Team discussed how much patient's behaviors are due to characterlogical/personality traits vs continued sonya. gospel worker spoke with patient's daughter says that patient is not at baseline; she normally holds down a job. Given her recent and current behaviors, verbal threats, team agrees that patient remains manic and unstable and unsafe for discharge. - designer writer considered increasing Depakote level However patient is more calm today, having slept through the night and seems resolved and possibly capable of demonstrating safe and appropriate behaviors on the unit Plan Signed a 3day notice Q 15 minutes checks Bipolar/sonya: had consider increasing Depakote level but patient seems to have calmed down so will hold off Gave Invega Sustenna 234 mg IM on 08/16; will follow up with 117 mg on 08/23/20 ( patient never received Risperdal Consta) will keep p.o. medication continued mood lability and manic behaviors -prns available for moderate and severe agitation continue Suboxone 4 mg p.r.n. for now (patient was accidentally started on naltrexone but this is been discontinued and was discussed with patient hbA1c/Lipids ordered Labs: neg serum test Depakote level WNL labs/liver WNL Greater than 50% of the session was spent on counseling and/or coordination of care Reason for contiued inpatient stay Substantial Risk for: rapid decompensation
[2020-08-19] MEDS: Calamine/Zinc Oxide LOTION 177 ML BOTTLE 1 APPL TOPICAL ×2 (13:24→18:57)
[2020-08-19] MEDS: Nicotine Polacrilex 2 MG GUM 4 MG BUCCAL (14:50)
[2020-08-19 20:00] VITALS: BP 133/89; PULSE 109; TEMP 36.9
[2020-08-19 20:47] VITALS: BP 133/89; PULSE 109
[2020-08-19] MEDS: Prazosin HCL 1 MG CAPSULE 5 MG PO (20:47)
[2020-08-19] MEDS: diphenhydrAMINE HCL 25 MG TABLET 50 MG PO (23:22)
[2020-08-19] MEDS: HaloperidoL 5 MG TABLET PO (23:23)
[2020-08-19] MEDS: LORazepam 1 MG TABLET 2 MG PO (23:23)
[2020-08-20 06:00] VITALS: BP 134/80; PULSE 106; TEMP 36.1; O2SAT 99
[2020-08-20] MEDS: Omeprazole 20 MG CAPSULE.DR PO (06:29)
[2020-08-20] MEDS: Acetaminophen 325 MG TABLET 650 MG PO ×3 (07:56→22:52)
[2020-08-20] MEDS: Cyclobenzaprine HCl 10 MG TABLET PO ×2 (07:56→16:38)
[2020-08-20] MEDS: Divalproex Sodium ER 250 MG TAB.ER.24H 1250 MG PO (07:56)
[2020-08-20] MEDS: Lidocaine 4 % Patch ADH..PATCH 1 PATCH TRANSDERMA (07:56)
[2020-08-20] MEDS: risperiDONE 2 MG TABLET PO ×2 (07:57→22:51)
[2020-08-20] MEDS: Buprenorphine/Naloxone 8/2 mg TAB.SUBL 0.5 TAB SUBLINGUAL (10:41)
[2020-08-20] MEDS: Mineral Oil/Petrolatum,White 106 GM Tube 1 APPL TOPICAL (11:54)
[2020-08-20] MEDS: Hydrocortisone 1 % Cream 28.35 GM TUBE 1 APPL TOPICAL (11:55)
[2020-08-20] MEDS: chlorproMAZINE HCl 25 MG TABLET 50 MG PO (13:43)
--- NOTE | 2020-08-20 15:57 | P.PNPSI_ITS ---
Subjective Subjective Date of Service: 08/20/20 Reason For Visit: Depression Interim History: patient slept through the night last night. This morning she did get upset and threw a pen when she was asked to return the pen she was using as a hair clip. Business Continuity Coordinator discussed this with her and patient felt that it was racially motivated since other patients have not been asked to hand in their pens. No HI or SI but continues to struggle with being emotionally reactive. Patient says she is otherwise working to stay calm and though emotional is feeling a little better. Mental Status Exam Mental Status Exam Narrative: Pt is alert and oriented; behavior is calm, friendly, sometimes te arful, sometimes momentarily agitated; dressed in casual cloths with good hygiene; mood is described as ok and affect congruent; eye contact congruent; Speech normal rate, rhythm and prosody; no psychomotor agitation; thought process is organized, linear, logical and goal directed. Thought content is on treatment; no delusional content, paranoid ideations or grandiosity appreciated; denies any SI or HI; There is no evidence of perceptual disturbance and she denies AVH. Patients insight and judgment appear more intact. Diagnostics Vital Signs (24Hr): Vital Signs - 24 hr 08/19/20 20:00 08/19/20 20:47 08/20/20 06:00 Temperature 98.5 F 97.0 F Pulse Rate 109 H 109 H 106 H Blood Pressure 133/89 133/89 134/80 Pulse Oximetry 99 Body Mass Index 41.1 Labs Results: 08/14/20 07:37 08/18/20 09:52 Medications Medications Current Medications Generic Name Dose Route Start Last Admin Trade Name Oleg PRN Reason Stop Dose Admin Acetaminophen 650 mg 08/13/20 00:00 08/20/20 07:56 Acetaminophen 325 Mg Tablet PO 650 mg Q6H PRN Administration Headache/Pain Mild Scale (1-3) Al Hydroxide/Mg Hydroxide 30 ml 08/13/20 00:00 Magnesium Hydrox/Alum Hydrox 30 Ml Oral.Susp PO Q6H PRN Heartburn/Nausea Benzocaine 1 lozenge 08/16/20 12:10 08/16/20 13:41 Throat Lozenge, Medicated Lozenge MUCOUS MEM 1 lozenge Q2H PRN Administration Sore Throat Buprenorphine/Naloxone 0.5 tab 08/13/20 13:48 08/20/20 10:41 Buprenorphine/Naloxone 8/2 Mg Tab.Subl SUBLINGUAL 0.5 tab BID PRN Administration moderate to severe pain Calamine 1 appl 08/19/20 12:16 08/19/20 18:57 Calamine/Zinc Oxide Lotion 177 Ml Bottle TOPICAL 1 appl QID PRN Administration skin itching Protocol Chlorpromazine HCl 50 mg 08/14/20 10:00 08/20/20 13:43 Chlorpromazine Hcl 25 Mg Tablet PO 50 mg QID PRN Administration Anxiety Cyclobenzaprine HCl 10 mg 08/13/20 00:57 08/20/20 07:56 Cyclobenzaprine Hcl 10 Mg Tablet PO 10 mg TID PRN Administration Pain, Mild (Pain Scale 1-3) Diphenhydramine HCl 50 mg 08/18/20 10:05 08/19/20 23:22 Diphenhydramine Hcl 25 Mg Tablet PO 50 mg Q4H PRN Administration agitation Divalproex Sodium 1,250 mg 08/13/20 13:50 08/20/20 07:56 Divalproex Sodium Er 250 Mg Tab.Er.24h PO 1,250 mg DAILY JOSE DANIEL Administration Haloperidol 5 mg 08/18/20 10:05 08/19/20 23:23 Haloperidol 5 Mg Tablet PO 5 mg Q4H PRN Administration agitation Hydrocortisone 1 appl 08/17/20 16:37 08/20/20 11:55 Hydrocortisone 1 % Cream 28.35 Gm Tube TOPICAL 1 appl BID PRN Administration Itching Protocol Hydroxyzine HCl 25 mg 08/13/20 00:00 08/18/20 01:27 Hydroxyzine Hcl 25 Mg Tablet PO 25 mg BEDTIME PRN Administration Anxiety Lidocaine 1 patch 08/18/20 09:00 08/20/20 07:56 Lidocaine 4 % Patch Adh..Patch TRANSDERMA 1 patch DAILY JOSE DANIEL Administration Protocol Lorazepam 2 mg 08/18/20 10:05 08/19/20 23:23 Lorazepam 1 Mg Tablet PO 2 mg Q4H PRN Administration agitation Magnesium Hydroxide 30 ml 08/13/20 00:00 Milk Of Magnesia 30 Ml Oral.Susp PO DAILY PRN Constipation Multi-Ingred Cream/Lotion/Oil/Oint 1 appl 08/19/20 12:14 08/20/20 11:54 Mineral Oil/Petrolatum,White 106 Gm Tube TOPICAL 1 appl TID PRN Administration dry skin Nicotine 21 mg 08/13/20 12:56 Nicotine 21 Mg Patch.Td24 TRANSDERMA DAILY PRN smoking cessation Nicotine Polacrilex 4 mg 08/13/20 13:54 08/19/20 14:50 Nicotine Polacrilex 2 Mg Gum BUCCAL 4 mg Q2H PRN Administration Nicotine Cravings Omeprazole 20 mg 08/13/20 06:30 08/20/20 06:29 Omeprazole 20 Mg Capsule.Dr PO 20 mg DAILY@0630 JOSE DANIEL Administration Paliperidone Palmitate 156 mg 08/23/20 09:00 Paliperidone Palmitate 156 Mg/Ml Syringe IM ONCE JOSE DANIEL Prazosin HCl 5 mg 08/13/20 21:00 08/19/20 20:47 Prazosin Hcl 1 Mg Capsule PO 5 mg BEDTIME JOSE DANIEL Administration Protocol Risperidone 2 mg 08/16/20 21:00 08/20/20 07:57 Risperidone 2 Mg Tablet PO 2 mg BID JOSE DANIEL Administration Trazodone HCl 50 mg 08/13/20 00:00 08/18/20 01:27 Trazodone Hcl 50 Mg Tablet PO 50 mg BEDTIME PRN Administration Insomnia Allergies Allergies Allergy/AdvReac Type Severity Reaction Status Date / Time hydromorphone Allergy Unknown Unknown Verified 08/05/20 14:24 insect venom [INSECT BITES] Allergy Unknown UNKNOWN Verified 08/05/20 14:24 penicillin V Allergy Unknown Unknown Verified 08/05/20 14:24 Penicillins Allergy Unknown UNKNOWN Verified 08/05/20 14:24 sulfamethoxazole Allergy Unknown UNKNOWN Verified 08/05/20 14:24 [From BACTRIM] trimethoprim [From BACTRIM] Allergy Unknown UNKNOWN Verified 08/05/20 14:24 From DILAUDID Allergy Unknown RASH Uncoded 11/06/19 16:41 Assessment & Plan Assessment & Plan (1) Bipolar 1 disorder: Status: Acute Code(s): F31.9 - Bipolar disorder, unspecified Assessment and Plan: Continue current regimen and plans (2) Alcohol abuse: Status: Acute Code(s): F10.10 - Alcohol abuse, uncomplicated (3) Knee pain: Qualifiers: Chronicity: chronic Laterality: right Qualified Code(s): M25.561 - Pain in right knee; G89.29 - Other chronic pain Status: Acute Code(s): M25.569 - Pain in unspecified knee Assessment and Plan: IMPRESSION: Patient is a 44-year-old female with history of bipolar disorder, alcohol abuse, emotional reactivity and PTSD who presents for manic symptoms in the community having been off Risperdal for 2 weeks. Patient presents as moderately manic. But though patient has manic behaviors in the community and on the unit, she is also with enough insight and knows her diagnosis, medications and that she is currently ?revved up? and that it is likely due to being off Risperdal Consta for 2 weeks (and may be partially triggered by abrupt discontinuation of alcohol). She says she has been taking Depakote regularly and wants to get back on Consta. Though she can be intermittently unreasonably demanding, she can also be friendly, redirectable and cooperative. HOSPITAL COURSE/DECISIONS 08/16 Patient had tough weekend, with manic behaviors needing physical restraint and IM Haldol. Patient is doing better today and agreed to Invega Sustenna medications since that last for a month. Business Continuity Coordinator spoke with patient's outpatient provider Marcos Kaur at [facility] who agrees with this plan and says th ere is no reason not to switch to Invega Sustenna. although patient does have intermittent mood lability, she remains articulate and with insight and invested in her treatment. she has a 3 day notice in that is due ??. Given her recent somewhat wild manic behaviors this weekend, patient should remain on unit for continued demonstration of her stability. -patient received Invega Sustenna 234; she also remains on Risperdal p.o.. 08/18 Patient continues to have manic behavior, demanding discharge, repeatedly demanding to be taken outside to smoke a cigarette; today she pulled a fire alarm angry that she was not yet discharged. Yesterday, patient asked newswriter for hot pink scooter so she can get around; though obviously an inappropriate request, patient laughed and this seemed to be a joke and part of her personality which involves light teasing. Team discussed how much patient's behaviors are due to characterlogical/personality traits vs continued sonya. filter worker spoke with patient's daughter says that patient is not at baseline; she normally holds down a job. Given her recent and current behaviors, verbal threats, team agrees that patient remains manic and unstable and unsafe for discharge. - newswriter considered increasing Depakote level However patient is more calm today, having slept through the night and seems resolved and possibly capable of demonstrating safe and appropriate behaviors on the unit. No verbal threats for 2 days Plan on CV Q 15 minutes checks Bipolar/sonya: - had consider increasing Depakote level but patient seems to have calmed down so will hold off - Gave Invega Sustenna 234 mg IM on 08/16; will follow up with 117 mg on 08/23/20 ( patient never received Risperdal Consta) - will keep p.o. medication continued mood lability and manic behaviors -prns available for moderate and severe agitation continue Suboxone 4 mg p.r.n. for now (patient was accidentally started on naltrexone but this is been discontinued and was discussed with patient hbA1c/Lipids ordered Labs: neg serum test Depakote level WNL labs/liver WNL Greater than 50% of the session was spent on counseling and/or coordination of care Reason for contiued inpatient stay Substantial Risk for: rapid decompensation
[2020-08-20] MEDS: Calamine/Zinc Oxide LOTION 177 ML BOTTLE 1 APPL TOPICAL (16:41)
[2020-08-20 16:53] VITALS: BP 135/75; PULSE 82; RESP 18; TEMP 36.8
[2020-08-20] MEDS: Nicotine Polacrilex 2 MG GUM 4 MG BUCCAL ×2 (17:55→23:02)
[2020-08-20 22:54] VITALS: BP 138/89; PULSE 107
[2020-08-20] MEDS: Prazosin HCL 1 MG CAPSULE 5 MG PO ×2 (22:54→22:59)
[2020-08-20 22:59] VITALS: BP 138/89; PULSE 107
[2020-08-21] MEDS: Buprenorphine/Naloxone 8/2 mg TAB.SUBL 0.5 TAB SUBLINGUAL (00:35)
[2020-08-21] MEDS: Hydrocortisone 1 % Cream 28.35 GM TUBE 1 APPL TOPICAL (01:36)
[2020-08-21] MEDS: Mineral Oil/Petrolatum,White 106 GM Tube 1 APPL TOPICAL (01:36)
[2020-08-21] MEDS: Nicotine Polacrilex 2 MG GUM 4 MG BUCCAL ×2 (03:39→14:11)
[2020-08-21] MEDS: Cyclobenzaprine HCl 10 MG TABLET PO ×2 (03:39→14:06)
[2020-08-21] MEDS: diphenhydrAMINE HCL 25 MG TABLET 50 MG PO ×2 (03:42→17:45)
[2020-08-21] MEDS: HaloperidoL 5 MG TABLET PO ×2 (03:42→17:45)
[2020-08-21] MEDS: LORazepam 1 MG TABLET 2 MG PO ×2 (03:42→17:45)
[2020-08-21] MEDS: Acetaminophen 325 MG TABLET 650 MG PO ×2 (10:48→17:22)
[2020-08-21] MEDS: Lidocaine 4 % Patch ADH..PATCH 1 PATCH TRANSDERMA (10:48)
[2020-08-21] MEDS: Divalproex Sodium ER 250 MG TAB.ER.24H 1250 MG PO (10:49)
[2020-08-21] MEDS: risperiDONE 2 MG TABLET PO ×2 (10:49→21:39)
[2020-08-21] MEDS: Omeprazole 20 MG CAPSULE.DR PO (10:49)
--- NOTE | 2020-08-21 14:35 | HO.PSYCHPN ---
Subjective Subjective Date of Service: 08/21/20 Reason For Visit: Depression Subjective Notes: Conditional Voluntary (retracted 3 day notice) Interim History: Pt retracted 3 day notice. She is working to stay calm. She is less impulsive. continues to be paranoid and suspicious Medication Compliance: Yes Side effects from medications: No Attending Groups: No Review of Systems Review of Systems no changes Yes all other systems are reviewed and are negative Diagnostics Vital Signs (24Hr): Vital Signs - 24 hr 08/20/20 16:53 08/20/20 22:54 08/20/20 22:59 Temperature 98.2 F Pulse Rate 82 107 H 107 H Respiratory Rate 18 Blood Pressure 135/75 138/89 138/89 Body Mass Index 41.1 Labs Results: 08/14/20 07:37 08/18/20 09:52 Medications Medications Current Medications Generic Name Dose Route Start Last Admin Trade Name Freq PRN Reason Stop Dose Admin Acetaminophen 650 mg 08/13/20 00:00 08/21/20 10:48 Acetaminophen 325 Mg Tablet PO 650 mg Q6H PRN Administration Headache/Pain Mild Scale (1-3) Al Hydroxide/Mg Hydroxide 30 ml 08/13/20 00:00 Magnesium Hydrox/Alum Hydrox 30 Ml Oral.Susp PO Q6H PRN Heartburn/Nausea Benzocaine 1 lozenge 08/16/20 12:10 08/16/20 13:41 Throat Lozenge, Medicated Lozenge MUCOUS MEM 1 lozenge Q2H PRN Administration Sore Throat Buprenorphine/Naloxone 0.5 tab 08/13/20 13:48 08/21/20 00:35 Buprenorphine/Naloxone 8/2 Mg Tab.Subl SUBLINGUAL 0.5 tab BID PRN Administration moderate to severe pain Calamine 1 appl 08/19/20 12:16 08/20/20 16:41 Calamine/Zinc Oxide Lotion 177 Ml Bottle TOPICAL 1 appl QID PRN Administration skin itching Protocol Chlorpromazine HCl 50 mg 08/14/20 10:00 08/20/20 13:43 Chlorpromazine Hcl 25 Mg Tablet PO 50 mg QID PRN Administration Anxiety Cyclobenzaprine HCl 10 mg 08/13/20 00:57 08/21/20 14:06 Cyclobenzaprine Hcl 10 Mg Tablet PO 10 mg TID PRN Administration Pain, Mild (Pain Scale 1-3) Diphenhydramine HCl 50 mg 06/30/21 10:05 08/21/20 03:42 Diphenhydramine Hcl 25 Mg Tablet PO 50 mg Q4H PRN Administration agitation Divalproex Sodium 1,250 mg 08/13/20 13:50 08/21/20 10:49 Divalproex Sodium Er 250 Mg Tab.Er.24h PO 1,250 mg DAILY JOSE DANIEL Administration Haloperidol 5 mg 08/18/20 10:05 08/21/20 03:42 Haloperidol 5 Mg Tablet PO 5 mg Q4H PRN Administration agitation Hydrocortisone 1 appl 08/17/20 16:37 08/21/20 01:36 Hydrocortisone 1 % Cream 28.35 Gm Tube TOPICAL 1 appl BID PRN Administration Itching Protocol Hydroxyzine HCl 25 mg 08/13/20 00:00 08/18/20 01:27 Hydroxyzine Hcl 25 Mg Tablet PO 25 mg BEDTIME PRN Administration Anxiety Lidocaine 1 patch 08/18/20 09:00 08/21/20 10:48 Lidocaine 4 % Patch Adh..Patch TRANSDERMA 1 patch DAILY JOSE DANIEL Administration Protocol Lorazepam 2 mg 08/18/20 10:05 08/21/20 03:42 Lorazepam 1 Mg Tablet PO 2 mg Q4H PRN Administration agitation Magnesium Hydroxide 30 ml 08/13/20 00:00 Milk Of Magnesia 30 Ml Oral.Susp PO DAILY PRN Constipation Multi-Ingred Cream/Lotion/Oil/Oint 1 appl 08/19/20 12:14 08/21/20 01:36 Mineral Oil/Petrolatum,White 106 Gm Tube TOPICAL 1 appl TID PRN Administration dry skin Nicotine 21 mg 08/13/20 12:56 Nicotine 21 Mg Patch.Td24 TRANSDERMA DAILY PRN smoking cessation Nicotine Polacrilex 4 mg 08/13/20 13:54 08/21/20 14:11 Nicotine Polacrilex 2 Mg Gum BUCCAL 4 mg Q2H PRN Administration Nicotine Cravings Omeprazole 20 mg 08/13/20 06:30 08/21/20 10:49 Omeprazole 20 Mg Capsule. PO 20 mg DAILY@0630 JOSE DANIEL Administration Paliperidone Palmitate 156 mg 08/23/20 09:00 Paliperidone Palmitate 156 Mg/Ml Syringe IM ONCE JOSE DANIEL Prazosin HCl 5 mg 08/13/20 21:00 08/20/20 22:59 Prazosin Hcl 1 Mg Capsule PO 5 mg BEDTIME JOSE DANIEL Administration Protocol Risperidone 2 mg 08/16/20 21:00 08/21/20 10:49 Risperidone 2 Mg Tablet PO 2 mg BID JOSE DANIEL Administration Trazodone HCl 50 mg 08/13/20 00:00 08/18/20 01:27 Trazodone Hcl 50 Mg Tablet PO 50 mg BEDTIME PRN Administration Insomnia Allergies Allergies Allergy/AdvReac Type Severity Reaction Status Date / Time hydromorphone Allergy Unknown Unknown Verified 08/05/20 14:24 insect venom [INSECT BITES] Allergy Unknown UNKNOWN Verified 08/05/20 14:24 penicillin V Allergy Unknown Unknown Verified 08/05/20 14:24 Penicillins Allergy Unknown UNKNOWN Verified 08/05/20 14:24 sulfamethoxazole Allergy Unknown UNKNOWN Verified 08/05/20 14:24 [From BACTRIM] trimethoprim [From BACTRIM] Allergy Unknown UNKNOWN Verified 08/05/20 14:24 From DILAUDID Allergy Unknown RASH Uncoded 11/06/19 16:41 Assessment & Plan Assessment & Plan (1) Bipolar 1 disorder: Status: Acute Code(s): F31.9 - Bipolar disorder, unspecified Assessment and Plan: Continue current regimen and plans (2) Alcohol abuse: Status: Acute Code(s): F10.10 - Alcohol abuse, uncomplicated (3) Knee pain: Qualifiers: Chronicity: chronic Laterality: right Qualified Code(s): M25.561 - Pain in right knee; G89.29 - Other chronic pain Status: Acute Code(s): M25.569 - Pain in unspecified knee Assessment and Plan: IMPRESSION BY HISTORY: Patient is a 44-year-old female with history of bipolar disorder, alcohol abuse, emotional reactivity and PTSD who presents for manic symptoms in the community having been off Risperdal for 2 weeks. Patient presents as moderately manic. But though patient has manic behaviors in the community and on the unit, she is also with enough insight and knows her diagnosis, medications and that she is currently ?revved up? and that it is likely due to being off Risperdal Consta for 2 weeks (and may be partially triggered by abrupt discontinuation of alcohol). She says she has been taking Depakote regularly and wants to get back on Consta. Though she can be intermittently unreasonably demanding, she can also be friendly, redirectable and cooperative. Plan No changes: Continue as per below: on CV Q 15 minutes checks Bipolar/sonya: - had consider increasing Depakote level but patient seems to have calmed down so will hold off - Gave Invega Sustenna 234 mg IM on 08/16; will follow up with 117 mg on 08/23/20 ( patient never received Risperdal Consta) - will keep p.o. medication continued mood lability and manic behaviors -prns available for moderate and severe agitation continue Suboxone 4 mg p.r.n. for now (patient was accidentally started on naltrexone but this is been discontinued and was discussed with patient hbA1c/Lipids ordered Labs: neg serum test Depakote level WNL labs/liver WNL Greater than 50% of the session was spent on counseling and/or coordination of care Reason for contiued inpatient stay Substantial Risk for: inability to function, rapid decompensation and med/psych decompensation
[2020-08-21 16:30] VITALS: BP 145/85; PULSE 107; RESP 18; TEMP 36.2; O2SAT 98
[2020-08-21] MEDS: chlorproMAZINE HCl 25 MG TABLET 50 MG PO (17:44)
[2020-08-21 21:39] VITALS: BP 135/84; PULSE 101
[2020-08-21] MEDS: Prazosin HCL 1 MG CAPSULE 5 MG PO (21:39)
[2020-08-22 06:00] VITALS: BP 135/77; PULSE 107; RESP 16; TEMP 36.4; O2SAT 98
[2020-08-22] MEDS: Acetaminophen 325 MG TABLET 650 MG PO ×2 (06:48→14:23)
[2020-08-22] MEDS: Cyclobenzaprine HCl 10 MG TABLET PO ×2 (06:48→14:26)
[2020-08-22] MEDS: Lidocaine 4 % Patch ADH..PATCH 1 PATCH TRANSDERMA (07:59)
[2020-08-22] MEDS: Buprenorphine/Naloxone 8/2 mg TAB.SUBL 0.5 TAB SUBLINGUAL (07:59)
[2020-08-22] MEDS: Omeprazole 20 MG CAPSULE.DR PO (08:00)
[2020-08-22] MEDS: Divalproex Sodium ER 250 MG TAB.ER.24H 1250 MG PO (08:00)
[2020-08-22] MEDS: risperiDONE 2 MG TABLET PO ×2 (08:00→21:39)
--- NOTE | 2020-08-22 11:40 | P.PNPSI_ITS ---
Subjective Subjective Date of Service: 08/22/20 Reason For Visit: Depression Interim History: Pt retracted 3 day notice. She is working to stay calm. asking what she needs to do to get out of hospital. showing improved impulse control despite irritation. She is less impulsive. continues to be paranoid and suspicious Review of Systems Review of Systems no changes Yes all other systems are reviewed and are negative Mental Status Exam Mental Status Exam Narrative: Pt is alert and oriented; behavior is calm, friendly, sometimes tearful, sometimes momentarily agitated; dressed in casual cloths with good hygiene; mood is described as ok and affect congruent; eye contact congruent; Speech normal rate, rhythm and prosody; no psychomotor agitation; thought process is organized, linear, logical and goal directed. Thought content is on treatment; no delusional content, paranoid ideations or grandiosity appreciated; denies any SI or HI; There is no evidence of perceptual disturbance and she denies AVH. Patients insight and judgment appear more intact. Diagnostics Vital Signs (24Hr): Vital Signs - 24 hr 08/21/20 16:30 08/21/20 21:39 08/22/20 06:00 Temperature 97.1 F 97.6 F Pulse Rate 107 H 101 H 107 H Respiratory Rate 18 16 Blood Pressure 145/85 H 135/84 135/77 Pulse Oximetry 98 98 Body Mass Index 41.1 Labs Results: 08/14/20 07:37 08/18/20 09:52 Medications Medications Current Medications Generic Name Dose Route Start Last Admin Trade Name Freq PRN Reason Stop Dose Admin Acetaminophen 650 mg 08/13/20 00:00 08/22/20 06:48 Acetaminophen 325 Mg Tablet PO 650 mg Q6H PRN Administration Headache/Pain Mild Scale (1-3) Al Hydroxide/Mg Hydroxide 30 ml 08/13/20 00:00 Magnesium Hydrox/Alum Hydrox 30 Ml Oral.Susp PO Q6H PRN Heartburn/Nausea Benzocaine 1 lozenge 08/16/20 12:10 08/16/20 13:41 Throat Lozenge, Medicated Lozenge MUCOUS MEM 1 lozenge Q2H PRN Administration Sore Throat Buprenorphine/Naloxone 0.5 tab 08/13/20 13:48 08/22/20 07:59 Buprenorphine/Naloxone 8/2 Mg Tab.Subl SUBLINGUAL 0.5 tab BID PRN Administration moderate to severe pain Calamine 1 appl 08/19/20 12:16 08/20/20 16:41 Calamine/Zinc Oxide Lotion 177 Ml Bottle TOPICAL 1 appl QID PRN Administration skin itching Protocol Chlorpromazine HCl 50 mg 08/14/20 10:00 08/21/20 17:44 Chlorpromazine Hcl 25 Mg Tablet PO 50 mg QID PRN Administration Anxiety Cyclobenzaprine HCl 10 mg 08/13/20 00:57 08/22/20 06:48 Cyclobenzaprine Hcl 10 Mg Tablet PO 10 mg TID PRN Administration Pain, Mild (Pain Scale 1-3) Diphenhydramine HCl 50 mg 08/18/20 10:05 08/21/20 17:45 Diphenhydramine Hcl 25 Mg Tablet PO 50 mg Q4H PRN Administration agitation Divalproex Sodium 1,250 mg 08/13/20 13:50 08/22/20 08:00 Divalproex Sodium Er 250 Mg Tab.Er.24h PO 1,250 mg DAILY JOSE DANIEL Administration Haloperidol 5 mg 08/18/20 10:05 08/21/20 17:45 Haloperidol 5 Mg Tablet PO 5 mg Q4H PRN Administration agitation Hydrocortisone 1 appl 08/17/20 16:37 08/21/20 01:36 Hydrocortisone 1 % Cream 28.35 Gm Tube TOPICAL 1 appl BID PRN Administration Itching Protocol Hydroxyzine HCl 25 mg 08/13/20 00:00 08/18/20 01:27 Hydroxyzine Hcl 25 Mg Tablet PO 25 mg BEDTIME PRN Administration Anxiety Lidocaine 1 patch 08/18/20 09:00 08/22/20 07:59 Lidocaine 4 % Patch Adh..Patch TRANSDERMA 1 patch DAILY JOSE DANIEL Administration Protocol Lorazepam 2 mg 08/18/20 10:05 08/21/20 17:45 Lorazepam 1 Mg Tablet PO 2 mg Q4H PRN Administration agitation Magnesium Hydroxide 30 ml 08/13/20 00:00 Milk Of Magnesia 30 Ml Oral.Susp PO DAILY PRN Constipation Multi-Ingred Cream/Lotion/Oil/Oint 1 appl 08/19/20 12:14 08/21/20 01:36 Mineral Oil/Petrolatum,White 106 Gm Tube TOPICAL 1 appl TID PRN Administration dry skin Nicotine 21 mg 08/13/20 12:56 Nicotine 21 Mg Patch.Td24 TRANSDERMA DAILY PRN smoking cessation Nicotine Polacrilex 4 mg 08/13/20 13:54 08/21/20 14:11 Nicotine Polacrilex 2 Mg Gum BUCCAL 4 mg Q2H PRN Administration Nicotine Cravings Omeprazole 20 mg 08/13/20 06:30 08/22/20 08:00 Omeprazole 20 Mg Capsule. PO 20 mg DAILY@0630 JOSE DANIEL Administration Paliperidone Palmitate 156 mg 08/23/20 09:00 Paliperidone Palmitate 156 Mg/Ml Syringe IM ONCE JOSE DANIEL Prazosin HCl 5 mg 08/13/20 21:00 08/21/20 21:39 Prazosin Hcl 1 Mg Capsule PO 5 mg BEDTIME JOSE DANIEL Administration Protocol Risperidone 2 mg 08/16/20 21:00 08/22/20 08:00 Risperidone 2 Mg Tablet PO 2 mg BID JOSE DANIEL Administration Trazodone HCl 50 mg 08/13/20 00:00 08/18/20 01:27 Trazodone Hcl 50 Mg Tablet PO 50 mg BEDTIME PRN Administration Insomnia Allergies Allergies Allergy/AdvReac Type Severity Reaction Status Date / Time hydromorphone Allergy Unknown Unknown Verified 08/05/20 14:24 insect venom [INSECT BITES] Allergy Unknown UNKNOWN Verified 08/05/20 14:24 penicillin V Allergy Unknown Unknown Verified 08/05/20 14:24 Penicillins Allergy Unknown UNKNOWN Verified 08/05/20 14:24 sulfamethoxazole Allergy Unknown UNKNOWN Verified 08/05/20 14:24 [From BACTRIM] trimethoprim [From BACTRIM] Allergy Unknown UNKNOWN Verified 08/05/20 14:24 From DILAUDID Allergy Unknown RASH Uncoded 11/06/19 16:41 Assessment & Plan Assessment & Plan (1) Bipolar 1 disorder: Status: Acute Code(s): F31.9 - Bipolar disorder, unspecified Assessment and Plan: Continue current regimen and plans (2) Alcohol abuse: Status: Acute Code(s): F10.10 - Alcohol abuse, uncomplicated (3) Knee pain: Qualifiers: Chronicity: chronic Laterality: right Qualified Code(s): M25.561 - Pain in right knee; G89.29 - Other chronic pain Status: Acute Code(s): M25.569 - Pain in unspecified knee Assessment and Plan: IMPRESSION BY HISTORY: Patient is a 44-year-old female with history of bipolar disorder, alcohol abuse, emotional reactivity and PTSD who presents for manic symptoms in the community having been off Risperdal for 2 weeks. Patient presents as moderately manic. But though patient has manic behaviors in the community and on the unit, she is also with enough insight and knows her diagnosis, medications and that she is currently ?revved up? and that it is likely due to being off Risperdal Consta for 2 weeks (and may be partially trig gered by abrupt discontinuation of alcohol). She says she has been taking Depakote regularly and wants to get back on Consta. Though she can be intermittently unreasonably demanding, she can also be friendly, redirectable and cooperative. Plan No changes: Continue as per below: on CV Q 15 minutes checks continue meds Greater than 50% of the session was spent on counseling and/or coordination of care Reason for contiued inpatient stay Substantial Risk for: harm to self, inability to function, rapid decompensation and med/psych decompensation
[2020-08-22] MEDS: Calamine/Zinc Oxide LOTION 177 ML BOTTLE 1 APPL TOPICAL ×2 (12:00→22:38)
[2020-08-22] MEDS: chlorproMAZINE HCl 25 MG TABLET 50 MG PO (12:01)
[2020-08-22] MEDS: Nicotine Polacrilex 2 MG GUM 4 MG BUCCAL (12:04)
[2020-08-22 17:03] VITALS: BP 156/92; PULSE 102; TEMP 36; O2SAT 96
[2020-08-22] MEDS: LORazepam 1 MG TABLET 2 MG PO (21:39)
[2020-08-22 21:42] VITALS: BP 145/87; PULSE 103
[2020-08-22] MEDS: Prazosin HCL 1 MG CAPSULE 5 MG PO (21:42)
[2020-08-22] MEDS: diphenhydrAMINE HCL 25 MG TABLET 50 MG PO (21:43)
[2020-08-22] MEDS: HaloperidoL 5 MG TABLET PO (21:43)
[2020-08-22] MEDS: Mineral Oil/Petrolatum,White 106 GM Tube 1 APPL TOPICAL (22:38)
[2020-08-22] MEDS: Hydrocortisone 1 % Cream 28.35 GM TUBE 1 APPL TOPICAL (22:38)
[2020-08-23] MEDS: Cyclobenzaprine HCl 10 MG TABLET PO ×2 (03:03→08:54)
[2020-08-23] MEDS: Acetaminophen 325 MG TABLET 650 MG PO ×3 (03:07→17:52)
[2020-08-23] MEDS: Omeprazole 20 MG CAPSULE.DR PO (05:49)
[2020-08-23] MEDS: Nicotine Polacrilex 2 MG GUM 4 MG BUCCAL (05:52)
[2020-08-23 06:00] VITALS: BP 141/66; PULSE 101; RESP 16; TEMP 36.6; O2SAT 98
[2020-08-23] MEDS: Divalproex Sodium ER 250 MG TAB.ER.24H 1250 MG PO (08:50)
[2020-08-23] MEDS: risperiDONE 2 MG TABLET PO ×2 (08:50→22:19)
--- NOTE | 2020-08-23 12:31 | HO.PSYCHPN ---
Subjective Subjective Date of Service: 08/23/20 Reason For Visit: Depression Interim History: Pt retracted 3 day notice. Irritable but in good control of impulses; She statesshe is working to stay calm and do what she needs to do to get out of hospital. showing improved impulse control despite irritation. She is less impulsive. continues to be paranoid and suspicious Review of Systems Review of Systems no changes Yes all other systems are reviewed and are negative Mental Status Exam Mental Status Exam Narrative: Pt is alert and oriented; behavior is calm, irritable, sometimes tearful, sometimes momentarily agitated; dressed in casual clothes with good hygiene; mood is described as ok and affect congruent; eye contact congruent; Speech normal rate, rhythm and prosody; no psychomotor agitation; thought process is organized, linear, logical and goal directed. Thought content is on treatment; no delusional content, paranoid ideations or grandiosity appreciated; denies any SI or HI; There is no evidence of perceptual disturbance and she denies AVH. Patients insight and judgment appear more intact. Diagnostics Vital Signs (24Hr): Vital Signs - 24 hr 08/22/20 17:03 08/22/20 21:42 08/23/20 06:00 Temperature 96.8 F 97.9 F Pulse Rate 102 H 103 H 101 H Respiratory Rate 16 Blood Pressure 156/92 H 145/87 H 141/66 H Pulse Oximetry 96 98 Body Mass Index 41.1 Labs Results: 08/14/20 07:37 08/18/20 09:52 Medications Medications Current Medications Generic Name Dose Route Start Last Admin Trade Name Freq PRN Reason Stop Dose Admin Acetaminophen 650 mg 08/13/20 00:00 08/23/20 08:57 Acetaminophen 325 Mg Tablet PO 650 mg Q6H PRN Administration Headache/Pain Mild Scale (1-3) Al Hydroxide/Mg Hydroxide 30 ml 08/13/20 00:00 Magnesium Hydrox/Alum Hydrox 30 Ml Oral.Susp PO Q6H PRN Heartburn/Nausea Benzocaine 1 lozenge 08/16/20 12:10 08/16/20 13:41 Throat Lozenge, Medicated Lozenge MUCOUS MEM 1 lozenge Q2H PRN Administration Sore Throat Buprenorphine/Naloxone 0.5 tab 08/13/20 13:48 08/22/20 07:59 Buprenorphine/Naloxone 8/2 Mg Tab.Subl SUBLINGUAL 0.5 tab BID PRN Administration moderate to severe pain Calamine 1 appl 08/19/20 12:16 08/22/20 22:38 Calamine/Zinc Oxide Lotion 177 Ml Bottle TOPICAL 1 appl QID PRN Administration skin itching Protocol Chlorpromazine HCl 50 mg 08/14/20 10:00 08/22/20 12:01 Chlorpromazine Hcl 25 Mg Tablet PO 50 mg QID PRN Administration Anxiety Cyclobenzaprine HCl 10 mg 08/13/20 00:57 08/23/20 08:54 Cyclobenzaprine Hcl 10 Mg Tablet PO 10 mg TID PRN Administration Pain, Mild (Pain Scale 1-3) Diphenhydramine HCl 50 mg 08/18/20 10:05 08/22/20 21:43 Diphenhydramine Hcl 25 Mg Tablet PO 50 mg Q4H PRN Administration agitation Divalproex Sodium 1,250 mg 08/13/20 13:50 08/23/20 08:50 Divalproex Sodium Er 250 Mg Tab.Er.24h PO 1,250 mg DAILY JOSE DANIEL Administration Haloperidol 5 mg 08/18/20 10:05 08/22/20 21:43 Haloperidol 5 Mg Tablet PO 5 mg Q4H PRN Administration agitation Hydrocortisone 1 appl 08/17/20 16:37 08/22/20 22:38 Hydrocortisone 1 % Cream 28.35 Gm Tube TOPICAL 1 appl BID PRN Administration Itching Protocol Hydroxyzine HCl 25 mg 08/13/20 00:00 08/18/20 01:27 Hydroxyzine Hcl 25 Mg Tablet PO 25 mg BEDTIME PRN Administration Anxiety Lidocaine 1 patch 08/18/20 09:00 08/23/20 08:50 Lidocaine 4 % Patch Adh..Patch TRANSDERMA Not Given DAILY [facility] Protocol Lorazepam 2 mg 08/18/20 10:05 08/22/20 21:39 Lorazepam 1 Mg Tablet PO 2 mg Q4H PRN Administration agitation Magnesium Hydroxide 30 ml 08/13/20 00:00 Milk Of Magnesia 30 Ml Oral.Susp PO DAILY PRN Constipation Multi-Ingred Cream/Lotion/Oil/Oint 1 appl 08/19/20 12:14 08/22/20 22:38 Mineral Oil/Petrolatum,White 106 Gm Tube TOPICAL 1 appl TID PRN Administration dry skin Nicotine 21 mg 08/13/20 12:56 Nicotine 21 Mg Patch.Td24 TRANSDERMA DAILY PRN smoking cessation Nicotine Polacrilex 4 mg 08/13/20 13:54 08/23/20 05:52 Nicotine Polacrilex 2 Mg Gum BUCCAL 4 mg Q2H PRN Administration Nicotine Cravings Omeprazole 20 mg 08/13/20 06:30 08/23/20 05:49 Omeprazole 20 Mg Capsule.Dr PO 20 mg DAILY@0630 JOSE DANIEL Administration Paliperidone Palmitate 156 mg 08/23/20 09:00 Paliperidone Palmitate 156 Mg/Ml Syringe IM ONCE JOSE DANIEL Prazosin HCl 5 mg 08/13/20 21:00 08/22/20 21:42 Prazosin Hcl 1 Mg Capsule PO 5 mg BEDTIME JOSE DANIEL Administration Protocol Risperidone 2 mg 08/16/20 21:00 08/23/20 08:50 Risperidone 2 Mg Tablet PO 2 mg BID JOSE DANIEL Administration Trazodone HCl 50 mg 08/13/20 00:00 08/18/20 01:27 Trazodone Hcl 50 Mg Tablet PO 50 mg BEDTIME PRN Administration Insomnia Allergies Allergies Allergy/AdvReac Type Severity Reaction Status Date / Time hydromorphone Allergy Unknown Unknown Verified 08/05/20 14:24 insect venom [INSECT BITES] Allergy Unknown UNKNOWN Verified 08/05/20 14:24 penicillin V Allergy Unknown Unknown Verified 08/05/20 14:24 Penicillins Allergy Unknown UNKNOWN Verified 08/05/20 14:24 sulfamethoxazole Allergy Unknown UNKNOWN Verified 08/05/20 14:24 [From BACTRIM] trimethoprim [From BACTRIM] Allergy Unknown UNKNOWN Verified 08/05/20 14:24 From DILAUDID Allergy Unknown RASH Uncoded 11/06/19 16:41 Assessment & Plan Assessment & Plan (1) Bipolar 1 disorder: Status: Acute Code(s): F31.9 - Bipolar disorder, unspecified Assessment and Plan: Continue current regimen and plans (2) Alcohol abuse: Status: Acute Code(s): F10.10 - Alcohol abuse, uncomplicated Assessment and Plan: relapse prevention planning outpt support (3) Knee pain: Qualifiers: Chronicity: chronic Laterality: right Qualified Code(s): M25.561 - Pain in right knee; G89.29 - Other chronic pain Status: Acute Code(s): M25.569 - Pain in unspecified knee Assessment and Plan: IMPRESSION BY HISTORY: Patient is a 44-year-old female with history of bipolar disorder, alcohol abuse, emotional reactivity and PTSD who presents for manic symptoms in the community having been off Risperdal for 2 weeks. Patient presents as moderately manic. But though patient has manic behaviors in the community and on the unit, she is also with enough insight and knows her diagnosis, medications and that she is currently ?revved up? and that it is likely due to being off Risperdal Consta for 2 weeks (and may be partially triggered by abrupt discontinuation of alcohol). She says she has been taking Depakote regularly and wants to get back on Consta. Though she can be intermittently unreasonably demanding, she can also be friendly, redirectable and cooperative. Plan No changes: Continue as per below: on CV Q 15 minutes checks continue meds Greater than 50% of the session was spent on counseling and/or coordination of care Reason for contiued inpatient stay Substantial Risk for: harm to self, harm to others, inability to function and rapid decompensation
[2020-08-23 16:36] VITALS: BP 137/94; PULSE 101; RESP 18; TEMP 36.6; O2SAT 96
[2020-08-23] MEDS: Buprenorphine/Naloxone 8/2 mg TAB.SUBL 0.5 TAB SUBLINGUAL (19:00)
[2020-08-23 22:19] VITALS: BP 131/86; PULSE 125
[2020-08-23] MEDS: HaloperidoL 5 MG TABLET PO (22:19)
[2020-08-23] MEDS: Prazosin HCL 1 MG CAPSULE 5 MG PO (22:19)
[2020-08-23] MEDS: diphenhydrAMINE HCL 25 MG TABLET 50 MG PO (22:19)
[2020-08-23] MEDS: LORazepam 1 MG TABLET 2 MG PO (22:20)
[2020-08-24] MEDS: Mineral Oil/Petrolatum,White 106 GM Tube 1 APPL TOPICAL (05:24)
[2020-08-24] MEDS: Omeprazole 20 MG CAPSULE.DR PO (05:46)
[2020-08-24 06:00] VITALS: BP 132/86; PULSE 108; RESP 18; TEMP 36.2; O2SAT 98
[2020-08-24] MEDS: Divalproex Sodium ER 250 MG TAB.ER.24H 1250 MG PO (08:55)
[2020-08-24] MEDS: risperiDONE 2 MG TABLET PO (08:55)
[2020-08-24] MEDS: Buprenorphine/Naloxone 8/2 mg TAB.SUBL 0.5 TAB SUBLINGUAL (09:14)
--- NOTE | 2020-08-24 09:45 | HO.PSYCHPN ---
Subjective Subjective Date of Service: 08/24/20 Reason For Visit: Depression Diagnostics Vital Signs (24Hr): Vital Signs - 24 hr 08/23/20 16:36 08/23/20 22:19 08/24/20 06:00 Temperature 97.8 F 97.2 F Pulse Rate 101 H 125 H 108 H Respiratory Rate 18 18 Blood Pressure 137/94 H 131/86 132/86 Pulse Oximetry 96 98 Body Mass Index 41.1 Labs Results: 08/14/20 07:37 08/18/20 09:52 Medications Medications Current Medications Generic Name Dose Route Start Last Admin Trade Name Freq PRN Reason Stop Dose Admin Acetaminophen 650 mg 08/13/20 00:00 08/23/20 17:52 Acetaminophen 325 Mg Tablet PO 650 mg Q6H PRN Administration Headache/Pain Mild Scale (1-3) Al Hydroxide/Mg Hydroxide 30 ml 08/13/20 00:00 Magnesium Hydrox/Alum Hydrox 30 Ml Oral.Susp PO Q6H PRN Heartburn/Nausea Benzocaine 1 lozenge 08/16/20 12:10 08/16/20 13:41 Throat Lozenge, Medicated Lozenge MUCOUS MEM 1 lozenge Q2H PRN Administration Sore Throat Buprenorphine/Naloxone 0.5 tab 08/13/20 13:48 08/24/20 09:14 Buprenorphine/Naloxone 8/2 Mg Tab.Subl SUBLINGUAL 0.5 tab BID PRN Administration moderate to severe pain Calamine 1 appl 08/19/20 12:16 08/22/20 22:38 Calamine/Zinc Oxide Lotion 177 Ml Bottle TOPICAL 1 appl QID PRN Administration skin itching Protocol Chlorpromazine HCl 50 mg 08/14/20 10:00 08/22/20 12:01 Chlorpromazine Hcl 25 Mg Tablet PO 50 mg QID PRN Administration Anxiety Cyclobenzaprine HCl 10 mg 08/13/20 00:57 08/23/20 08:54 Cyclobenzaprine Hcl 10 Mg Tablet PO 10 mg TID PRN Administration Pain, Mild (Pain Scale 1-3) Diphenhydramine HCl 50 mg 08/18/20 10:05 08/23/20 22:19 Diphenhydramine Hcl 25 Mg Tablet PO 50 mg Q4H PRN Administration agitation Divalproex Sodium 1,250 mg 08/13/20 13:50 08/24/20 08:55 Divalproex Sodium Er 250 Mg Tab.Er.24h PO 1,250 mg DAILY OJSE DANIEL Administration Haloperidol 5 mg 08/18/20 10:05 08/23/20 22:19 Haloperidol 5 Mg Tablet PO 5 mg Q4H PRN Administration agitation Hydrocortisone 1 appl 08/17/20 16:37 08/22/20 22:38 Hydrocortisone 1 % Cream 28.35 Gm Tube TOPICAL 1 appl BID PRN Administration Itching Protocol Hydroxyzine HCl 25 mg 08/13/20 00:00 08/18/20 01:27 Hydroxyzine Hcl 25 Mg Tablet PO 25 mg BEDTIME PRN Administration Anxiety Lidocaine 1 patch 08/18/20 09:00 08/24/20 08:55 Lidocaine 4 % Patch Adh..Patch TRANSDERMA Not Given DAILY JOSE DANIEL Protocol Lorazepam 2 mg 08/18/20 10:05 08/23/20 22:20 Lorazepam 1 Mg Tablet PO 2 mg Q4H PRN Administration agitation Magnesium Hydroxide 30 ml 08/13/20 00:00 Milk Of Magnesia 30 Ml Oral.Susp PO DAILY PRN Constipation Multi-Ingred Cream/Lotion/Oil/Oint 1 appl 08/19/20 12:14 08/24/20 05:24 Mineral Oil/Petrolatum,White 106 Gm Tube TOPICAL 1 appl TID PRN Administration dry skin Nicotine 21 mg 08/13/20 12:56 Nicotine 21 Mg Patch.Td24 TRANSDERMA DAILY PRN smoking cessation Nicotine Polacrilex 4 mg 08/13/20 13:54 08/23/20 05:52 Nicotine Polacrilex 2 Mg Gum BUCCAL 4 mg Q2H PRN Administration Nicotine Cravings Omeprazole 20 mg 08/13/20 06:30 08/24/20 05:46 Omeprazole 20 Mg Capsule. PO 20 mg DAILY@0630 JOSE DANIEL Administration Paliperidone Palmitate 156 mg 08/23/20 09:00 Paliperidone Palmitate 156 Mg/Ml Syringe IM ONCE JOSE DANIEL Prazosin HCl 5 mg 08/13/20 21:00 08/23/20 22:19 Prazosin Hcl 1 Mg Capsule PO 5 mg BEDTIME JOSE DANIEL Administration Protocol Risperidone 2 mg 08/16/20 21:00 08/24/20 08:55 Risperidone 2 Mg Tablet PO 2 mg BID JOSE DANIEL Administration Trazodone HCl 50 mg 08/13/20 00:00 08/18/20 01:27 Trazodone Hcl 50 Mg Tablet PO 50 mg BEDTIME PRN Administration Insomnia Allergies Allergies Allergy/AdvReac Type Severity Reaction Status Date / Time hydromorphone Allergy Unknown Unknown Verified 08/05/20 14:24 insect venom [INSECT BITES] Allergy Unknown UNKNOWN Verified 08/05/20 14:24 penicillin V Allergy Unknown Unknown Verified 08/05/20 14:24 Penicillins Allergy Unknown UNKNOWN Verified 08/05/20 14:24 sulfamethoxazole Allergy Unknown UNKNOWN Verified 08/05/20 14:24 [From BACTRIM] trimethoprim [From BACTRIM] Allergy Unknown UNKNOWN Verified 08/05/20 14:24 From DILAUDID Allergy Unknown RASH Uncoded 11/06/19 16:41 Assessment & Plan Assessment & Plan (1) Bipolar 1 disorder: Status: Acute Code(s): F31.9 - Bipolar disorder, unspecified Assessment and Plan: Continue current regimen and plans (2) Alcohol abuse: Status: Acute Code(s): F10.10 - Alcohol abuse, uncomplicated Assessment and Plan: relapse prevention planning outpt support (3) Knee pain: Qualifiers: Chronicity: chronic Laterality: right Qualified Code(s): M25.561 - Pain in right knee; G89.29 - Other chronic pain Status: Acute Code(s): M25.569 - Pain in unspecified knee Assessment and Plan: IMPRESSION BY HISTORY: Patient is a 44-year-old female with history of bipolar disorder, alcohol abuse, emotional reactivity and PTSD who presents for manic symptoms in the community having been off Risperdal for 2 weeks. Patient presents as moderately manic. But though patient has manic behaviors in the community and on the unit, she is also with enough insight and knows her diagnosis, medications and that she is currently ?revved up? and that it is likely due to being off Risperdal Consta for 2 weeks (and may be partially triggered by abrupt discontinuation of alcohol). She says she has been taking Depakote regularly and wants to get back on Consta. Though she can be intermittently unreasonably demanding, she can also be friendly, redirectable and cooperative. Plan No changes: Continue as per below: on CV Q 15 minutes checks continue meds Greater than 50% of the session was spent on counseling and/or coordination of care
[2020-08-24] MEDS: Paliperidone Palmitate 156 MG/ML SYRINGE IM (11:29)
--- NOTE | 2020-08-24 12:22 | P.DS_ITS ---
DS: Providers Provider Date of Service: 08/24/20 Date of admission: 08/12/20 23:27 Date of discharge: 08/24/20 Primary care physician: Becca Callaway MD Attending physician on admission: Justice Summers Consults: 08/13/20 00:00 Consult to Hospitalist Routine Consulting Provider: Hospitalist Reason For Exam: routine Attending physician on discharge: Justice Summers DS: Diagnosis Discharge Diagnosis (1) Bipolar 1 disorder: Status: Chronic (2) Alcohol abuse: Status: Chronic (3) Knee pain: Status: Chronic DS: Medications Discharge Medications Home Medications: Previous Rx's Medication Instructions Recorded cyclobenzaprine 10 mg PO TID PRN #90 tab 05/06/20 ferrous sulfate 325 mg PO DAILY #90 tab 05/06/20 levothyroxine 25 mcg PO DAILY #90 tab 05/06/20 lisinopril 5 mg PO DAILY #90 tab 05/06/20 omeprazole 20 mg PO DAILY #90 cap 05/06/20 trazodone 50 mg PO BEDTIME #90 tab 05/06/20 buprenorphine-naloxone 0.5 tab SUBLINGUAL BID PRN 14 Days 08/24/20 #14 tab chlorpromazine 50 mg PO DAILY PRN 30 Days #30 tab 08/24/20 divalproex [Depakote] 1,250 mg PO DAILY 30 Days #150 tab 08/24/20 nicotine (polacrilex) 4 mg BUCCAL Q2H PRN 30 Days #50 ea 08/24/20 paliperidone palmitate [Invega 156 mg IM QMONTH 30 Days #1 ml 08/24/20 Sustenna] prazosin 5 mg PO BEDTIME 30 Days #150 cap 08/24/20 risperidone 2 mg PO BID 3 Days #6 tab 08/24/20 Discharge Plan Discharge Patient Disposition: Home, Self-Care Discharge Diagnosis: Bipolar Disorder, Type 1, recurrent, severe most recent ep isode manic, in full remission Referrals: Psych Prescriber: Marcos Kaur ([facility]) [Other] - 08/25/20 9:00 am [facility], THERAPIST [Other] - 08/27/20 11:00 am (TELEHEALTH) Suboxone: Storm Freedman ([facility]) [Other] - 08/26/20 2:00 pm (In main hospital; take elevator to 4th floor. Bring insurance card and ID. ) Next Invega Shot: [facility] ([place]) [Other] - 09/21/20 10:00 am (This is where your prescription for your next injection was sent; please go here on this day and the pharmacist will give you the injection. ) Becca Blanton [Nurse Practitioner] - 09/03/20 1:00 pm (in office) Discharge Medications: New nicotine (polacrilex) 2 mg Gum 4 mg buccal Q2H PRN (Reason: Nicotine Cravings) 30 Days Qty: 50 RF: 0 prazosin 1 mg Capsule 5 mg PO BEDTIME 30 Days Qty: 150 RF: 0 Invega Sustenna 156 mg/mL Syringe 156 mg IM QMONTH 30 Days Qty: 1 RF: 0 risperidone 2 mg Tablet 2 mg PO BID 3 Days Qty: 6 RF: 0 chlorpromazine 25 mg Tablet 50 mg PO DAILY PRN (Reason: Anxiety/agitation) 30 Days Qty: 30 RF: 0 buprenorphine-naloxone 8-2 mg Tablet, Sublingual 0.5 tab sublingual BID PRN (Reason: moderate to severe pain) 14 Days Qty: 14 RF: 0 Continued cyclobenzaprine 10 mg tablet 10 mg PO TID PRN (Reason: muscle spasm) Qty: 90 RF: 3 omeprazole 20 mg capsule,delayed release(DR/EC) 20 mg PO DAILY Qty: 90 RF: 3 trazodone 50 mg tablet 50 mg PO BEDTIME Qty: 90 RF: 3 levothyroxine 25 mcg tablet 25 mcg PO DAILY Qty: 90 RF: 3 ferrous sulfate 325 mg (65 mg iron) tablet 325 mg PO DAILY Qty: 90 RF: 3 lisinopril 5 mg tablet 5 mg PO DAILY Qty: 90 RF: 3 Changed divalproex [Depakote] 250 mg tablet,delayed release (DR/EC) 1,250 mg PO DAILY 30 Days Qty: 150 RF: 0 Discontinued hydroxyzine HCl 25 mg tablet 25 mg PO TID PRN (Reason: Itchy) Qty: 90 RF: 3 prazosin 1 mg capsule 1 mg PO BEDTIME Qty: 90 RF: 3 quetiapine 100 mg tablet 100 mg PO BEDTIME Qty: 90 RF: 3 prednisone 20 mg tablet 60 mg PO DAILY 5 Days Qty: 15 RF: 0 ketorolac 10 mg tablet 10 mg PO Q6H PRN (Reason: pain) 5 Days Qty: 20 RF: 0 hydromorphone [Dilaudid] 2 mg tablet 2 mg PO Q6H PRN (Reason: pain) 7 Days Qty: 14 RF: 0 cyclobenzaprine 10 mg tablet 10 mg PO TID PRN (Reason: muscle spasm) Qty: 14 RF: 0 Discharge Orders: Discharge Order (Routine); Ordered 08/24/20 Ordered By: Justice Summers Diet: regular diet Activity on Discharge: As tolerated Stand Alone Forms: Patient Portal Discharge page Care Plan Goals: Maintain mood and safe behaviors Take medications as prescribed Continue to pursue sobriety Practice coping skills Continue with outpatient providers and reach out to them as needed Health Concerns: Mood instability and behaviors alcohol abuse Knee pain HTN Plan of Treatment: Follow up with your PCP and psychiatric provider regarding above concerns Take medications as prescribed Take Risperdal 2mg twice a day for 3 more days and then discontinue Assessment: Risk assessment at time of discharge: Patient has been observed closely by nursing and unit staff throughout admission; once sonya resolved, patient did not engage in any behaviors that suggest dangerousness to self or others and demonstrated appropriate behaviors and impulse control. Patient was interviewed prior to discharge and found to be fully oriented and without any SI or HI. Patient has insight and demonstrates good judgment in terms of wanting to pursue treatment. Patient is not in imminent risk of harm to self or others and has a safety plan that includes presenting to the closest ER or calling 911 if feeling unsafe. Discharge Date/Time: 08/24/20 13:55 Mental Status Exam Mental Status Exam Narrative: Pt is alert and oriented; behavior is cooperative, friendly and calm; patient is not in distress; dressed in casual attire with good hygiene; mood is described as good and affect congruent; eye contact appropriate; Speech is normal rate, volume and prosody and not pressured; no psychomotor agitation/retardation present; thought process is organized, linear, logical and goal directed. Thought content is on staying stable, getting back to normal life and otherwise pertinent to relevant topics and without any delusional content, paranoid ideations or grandiosity; denies any SI/HI. There is no evide nce of perceptual disturbance. Patients insight and judgment appear intact. Data Data Completed and Pending Completed studies during hospitalization [Text1]: 08/18/20 08/18/20 08/18/20 09:52 09:54 09:54 Sodium 138 Potassium 4.6 Chloride 104 Carbon Dioxide 26 Anion Gap 13 Estimat Average Glucose 77 Hemoglobin A1c % 4.3 Triglycerides 86 Cholesterol 140 LDL Cholesterol, Calc 80 HDL Cholesterol 43 DS: Summary Hospital Course Hospital Course: Patient is a 44-year-old female with history of bipolar disorder, alcohol abuse, emotional reactivity and PTSD who presents for manic symptoms in the community having been off Risperdal Consta for 2 weeks. Pt signed CV. On admission, patient presented as moderately manic but with enough insight and knows her diagnosis, medications, that she is currently ?revved up? since being off Risperdal Consta for 2 weeks (and may be partially triggered by abrupt discontinuation of alcohol) and wanting treatment. Patient was continued on Depakote and other home meds; her outpatient psychiatric provider was consulted who agreed that Invega Sustenna was a preferable option, to which patient agreed, preferring the once a month dosing to q.2 weeks. During much of her admission, she was intermittently unreasonably demanding, emotional, verbally agitated and one time pulled fire-alarm in protest; she would also intermittently make homicidal comments directed at specific individuals, however she clarified that she would never really do anything, had no plans or intention and that it was just her way of venting frustration. That said, she could also be friendly, calm, kind to peers, cooperative and nearly always redirectable. Given her lability, pt stayed on Risperdal PO to overlap REEDER becoming therapeutic. Patient was very focused on discharge included writing a 3 day notice, however she agreed that she was still hypomanic, not ready for discharge and she rescinded the 3 day notice. Over time, patient was able to get increasing control over her mood lability and impulsivity. at 1st she had trouble sleeping through the night, but this resolved and patient ended up sleeping well and through the night. By the end of her admission, patient felt she had come back to her normal self; she had significantly improved insight realizing and expressing in hindsight she was definitely manic, that it was good she remained on the unit and she listed some of the behaviors she would never have done if she was at her baseline. Patient's manic symptoms fully resolved and she was in good behavioral control, with good insight and judgment; patient was in a good mood, without any SI or HI, future oriented and wanting to get back to work. patient asked for discharge. Team agreed that she was stable. She was not in imminent risk of harm to self or others and did not meet any criteria for involuntary commitment. Patient is request for discharge honored. during admission, patient complained of chronic knee pain; she had been on naltrexone which did not do much to help for her alcohol abuse and so she was switched over to Suboxone as a p.r.n. for pain. Time spent discussing smoking cessation with patient: 3 to 10 minutes Status at Discharge Cognitive/behavioral status at discharge: Patient was interviewed prior to discharge and found to be fully oriented and without any SI or HI. Patient has insight and demonstrates good judgment in terms of wanting to pursue treatment. Patient is not in imminent risk of harm to self or others and has a safety plan that includes presenting to the closest ER or calling 911 if feeling unsafe. Functional status at discharge: independent ambulation Overall status at discharge: patient is back to baseline Time Spent with Patient Time attestation: Total time spent providing and/or coordinating discharge services: Time spent: Greater than 30 minutes
== END 2020-08-24 13:55 | disposition home or self-care (01) | DRG 885 ==
PROVIDERS: Psychiatry & Neurology Psychiatry; Admitting Provider Psychiatry & Neurology Psychiatry; PCP Internal Medicine; Visit Provider Psychiatry & Neurology Psychiatry
DX: F31.9 Bipolar disorder, unspecified (principal); F17.210 Nicotine dependence, cigarettes, uncomplicated; F10.10 Alcohol abuse, uncomplicated; F43.10 Post-traumatic stress disorder, unspecified; M17.0 Bilateral primary osteoarthritis of knee; Z71.6 Tobacco abuse counseling; Z91.14 Patient's other noncompliance with medication regimen; Z91.5 Personal history of self-harm; Z88.0 Allergy status to penicillin; Z88.2 Allergy status to sulfonamides; Z79.890 Hormone replacement therapy; Z79.899 Other long term (current) drug therapy
CPT/HCPCS: 36415; 80051; 80053; 80061; 80076; 80164; 81025; 82140; 83036; 84443; 84702; 85025; 99283; J0515; J2060; J2426; Q0163

== ENCOUNTER → 2020-08-26 14:17 | Outpatient (BNVA) | payer MEDICARE, MEDICAID, SELFPAY | PROVIDERS: PCP Internal Medicine; Visit Provider Nurse Practitioner Psychiatric/Mental Health | DX: M25.561 Pain in right knee (principal); G89.29 Other chronic pain; Z79.891 Long term (current) use of opiate analgesic | CPT/HCPCS: 80305; 99211 ==

== ENCOUNTER → 2020-09-17 10:45 | Outpatient (BNVA) | payer MEDICARE, MEDICAID, SELFPAY | PROVIDERS: PCP Internal Medicine; Visit Provider Nurse Practitioner Family | DX: M17.11 Unilateral primary osteoarthritis, right knee (principal) | CPT/HCPCS: 99202 ==

== ENCOUNTER 2020-09-20 04:18 | Emergency (ER) | payer MEDICARE, MEDICAID, SELFPAY ==
[2020-09-20 04:41] VITALS: BP 140/101; PULSE 102; RESP 15; TEMP 36.7; O2SAT 98; BMI 40.7
[2020-09-20 06:00] VITALS: BP 140/101; PULSE 102; RESP 15; TEMP 36.7; O2SAT 98
--- NOTE | 2020-09-20 06:06 | ED_ITS ---
HPI - Extremity Problem General Chief complaint: Extremity Problem Stated complaint: continued knee pain Time Seen by Provider: 09/20/20 06:05 Source: patient Mode of arrival: ambulatory History of Present Illness HPI Narrative: 44-year-old female with history of right knee osteoarthritis in presents with acute worsening of knee pain as she has 3 flights of stairs to traverse to her apartment as well as a job that requires her to be on her feet. Patient has pain management appointments in place as well has an orthopedic referral and is unable to tolerate NSAIDs given history of stomach ulcers. Related Data Previous Rx's Medication Instructions Recorded cyclobenzaprine 10 mg tablet 10 mg PO TID PRN #90 tab 05/06/20 ferrous sulfate 325 mg (65 mg 325 mg PO DAILY #90 tab 05/06/20 iron) tablet levothyroxine 25 mcg tablet 25 mcg PO DAILY #90 tab 05/06/20 lisinopril 5 mg tablet 5 mg PO DAILY #90 tab 05/06/20 omeprazole 20 mg capsule,delayed 20 mg PO DAILY #90 cap 05/06/20 release trazodone 50 mg tablet 50 mg PO BEDTIME #90 tab 05/06/20 chlorpromazine 25 mg tablet 50 mg PO DAILY PRN 30 Days #30 tab 08/24/20 divalproex 250 mg tablet,delayed 1,250 mg PO DAILY 30 Days #150 tab 08/24/20 release (Depakote) nicotine (polacrilex) 2 mg gum 4 mg BUCCAL Q2H PRN 30 Days #50 ea 08/24/20 paliperidone palmitate 156 mg/mL 156 mg IM QMONTH 30 Days #1 ml 08/24/20 intramuscular syringe (Invega Sustenna) prazosin 1 mg capsule 5 mg PO BEDTIME 30 Days #150 cap 08/24/20 Allergies Allergy/AdvReac Type Severity Reaction Status Date / Time hydromorphone Allergy Unknown Unknown Verified 09/17/20 10:52 insect venom [INSECT BITES] Allergy Unknown UNKNOWN Verified 09/17/20 10:52 Penicillins Allergy Unknown UNKNOWN Verified 09/17/20 10:52 sulfamethoxazole Allergy Unknown UNKNOWN Verified 09/17/20 10:52 [From BACTRIM] trimethoprim [From BACTRIM] Allergy Unknown UNKNOWN Verified 09/17/20 10:52 From DILAUDID Allergy Unknown RASH Uncoded 11/06/19 16:41 Review of Systems Review of Systems: Pertinent positives and negatives as stated in HPI 10 point review of systems is otherwise negative. [facility] Past Medical History Source: nursing notes reviewed Medical History Alcohol abuse Hypertension Psychiatric diagnosis Surgical History History of ankle surgery History of cholecystectomy Social History Social History Household Members: None Household Members Other:: lives by self Housing: Apartment Do you presently have visiting nurse or other home services: No Alcohol intake: unknown Patient Tobacco Use Status: Current everyday Tobacco user Tobacco use type: Cigarette e-Cigarette/Vaping Use: Currently Using Second Hand Smoke Exposure: No Use of substances other than those prescribed or required for medical reasons: No Advance Directives: No Advance Directives Information Provided: No Patient : No service: No Sexual orientation: Did not discuss Physical Exam Vital Signs: Vital Signs: Last Vital Signs Temp 98.1 F 09/20/20 06:00 Pulse 102 H 09/20/20 06:00 Resp 15 09/20/20 06:00 BP 140/101 H 09/20/20 06:00 Pulse Ox 98 09/20/20 06:00 Body Mass Index 40.7 VITAL SIGNS: Reviewed. GENERAL: Well developed, well nourished, in no acute distress. HEAD: Normocephalic/atraumatic EYES: PERRLA, EOMI OROPHARYNX: no oral lesions noted, posterior pharynx clear LUNGS: Normal breath sounds. No adventitious sounds or accessory muscle use. SpO2<98> CARDIOVASCULAR: Regular rate and rhythm without noted murmurs ABDOMEN: Soft, non-tender, non-distended with bowel sounds. RIGHT KNEE: No obvious effusion, no erythema/induration and knee is not warm to touch, palpable DP/PT, good sensation, capillary refill less than 3 seconds SKIN: Inspection of the skin reveals no rashes NEUROLOGIC: Alert and oriented x 4. Strength and sensation to light touch were grossly intact x 4. Course Course Course Narrative: 44-year-old female with history and clinical presentation of acute on chronic exacerbation of her underlying osteoarthritis. Patient has good follow-up in place and was provided with lidocaine patch and Brody wrap for help as she states the [id number] knee brace is have a tendency to either slide down or simply not work. On re-evaluation patient is comfortable with the current plan for discharge and to continue follow-up with orthopedics as well as her pain management. Discharge Plan Discharge Clinical Impression: Osteoarthritis of right knee Patient Disposition: Home, Self-Care Instructions: Osteoarthritis (ED), Knee Pain (ED) Additional Instructions: 1. Resume your home medications as prescribed. 2. Recommend [id number] lidocaine ointment and apply to your right knee as directed on the outside packaging. 3. Recommend using the Brody wrap for additional symptom relief and support. 4. Please continue with follow-up as scheduled with Orthopedics as well as your pain management. Return to the ER for acute worsening of symptoms. Prescriptions: No Action cyclobenzaprine 10 mg tablet 10 mg PO TID PRN (Reason: muscle spasm) Qty: 90 RF: 3 omeprazole 20 mg capsule,delayed release(DR/EC) 20 mg PO DAILY Qty: 90 RF: 3 trazodone 50 mg tablet 50 mg PO BEDTIME Qty: 90 RF: 3 levothyroxine 25 mcg tablet 25 mcg PO DAILY Qty: 90 RF: 3 ferrous sulfate 325 mg (65 mg iron) tablet 325 mg PO DAILY Qty: 90 RF: 3 lisinopril 5 mg tablet 5 mg PO DAILY Qty: 90 RF: 3 nicotine (polacrilex) 2 mg Gum 4 mg buccal Q2H PRN (Reason: Nicotine Cravings) 30 Days Qty: 50 RF: 0 prazosin 1 mg Capsule 5 mg PO BEDTIME 30 Days Qty: 150 RF: 0 Invega Sustenna 156 mg/mL Syringe 156 mg IM QMONTH 30 Days Qty: 1 RF: 0 chlorpromazine 25 mg Tablet 50 mg PO DAILY PRN (Reason: Anxiety/agitation) 30 Days Qty: 30 RF: 0 divalproex [Depakote] 250 mg tablet,delayed release (DR/EC) 1,250 mg PO DAILY 30 Days Qty: 150 RF: 0 Referrals: [facility] [Primary Care Provider] - 2 days
[2020-09-20] MEDS: Lidocaine 4 % Patch ADH..PATCH 2 PATCH TRANSDERMA (06:24)
== END 2020-09-20 07:07 | disposition home or self-care (01) ==
PROVIDERS: Emergency Provider Student in an Organized Health Care Education/Training Program
DX: M17.11 Unilateral primary osteoarthritis, right knee (principal); M25.561 Pain in right knee; I10 Essential (primary) hypertension
CPT/HCPCS: 99283; 99284

== ENCOUNTER 2020-10-04 07:32 | Outpatient (REF) | payer MEDICARE, MEDICAID, SELFPAY ==
--- NOTE | ~2020-10-04 | XR_ITS ---
EXAMINATION: XR KNEE STANDING, BILATERAL XR KNEE, RIGHT CLINICAL INFORMATION: Pain. COMPARISON: Right knee radiographs dated 08/05/2020. Left knee radiographs dated 01/14/2016. TECHNIQUE: AP standing view of the right and left knee. Lateral and sunrise views of the right knee. FINDINGS: RIGHT KNEE: Severe medial compartment joint space narrowing. Tricompartmental marginal osteophytes. No osseous erosion. No fracture or dislocation. Moderate joint effusion. LEFT KNEE: Mild medial compartment joint space narrowing. Tricompartmental marginal osteophytes. No osseous erosion. No abnormal soft tissue calcification. XR/XR knee standing BI IMPRESSION: 1. Tricompartmental osteoarthritis in the right knee, most severe within the medial compartment. Redemonstration of a moderate joint effusion. 2. Tricompartment left knee osteoarthritis. Findings are slightly progressed when compared to the prior examination from 2015.
--- NOTE | ~2020-10-04 | XR_ITS ---
EXAMINATION: XR KNEE STANDING, BILATERAL XR KNEE, RIGHT CLINICAL INFORMATION: Pain. COMPARISON: Right knee radiographs dated 08/05/2020. Left knee radiographs dated 01/14/2016. TECHNIQUE: AP standing view of the right and left knee. Lateral and sunrise views of the right knee. FINDINGS: RIGHT KNEE: Severe medial compartment joint space narrowing. Tricompartmental marginal osteophytes. No osseous erosion. No fracture or dislocation. Moderate joint effusion. LEFT KNEE: Mild medial compartment joint space narrowing. Tricompartmental marginal osteophytes. No osseous erosion. No abnormal soft tissue calcification. XR/XR knee RT 2V IMPRESSION: 1. Tricompartmental osteoarthritis in the right knee, most severe within the medial compartment. Redemonstration of a moderate joint effusion. 2. Tricompartment left knee osteoarthritis. Findings are slightly progressed when compared to the prior examination from 2015.
== END 2020-10-04 07:33 | disposition home or self-care (01) ==
LOC: HO.HOSX 07:32
PROVIDERS: Visit Provider Physician Assistant
DX: M17.11 Unilateral primary osteoarthritis, right knee (principal)
CPT/HCPCS: 73560; 73565; 99202

== ENCOUNTER 2020-10-12 07:53 | Outpatient (REF) | payer MEDICARE, MEDICAID, SELFPAY ==
--- NOTE | ~2020-10-12 | FL_ITS ---
EXAMINATION: XR FLUOROSCOPY WITH IMAGES CLINICAL INFORMATION: M17.11 - Unilateral primary osteoarthritis, right knee COMPARISON: Radiographs knees 10/04/2020 TECHNIQUE: Fluoroscopy performed by Dr. Raghavendra Rivera. Fluoroscopy time: under 1 minute. DAP: 0.380 Gycm2 Images: 2 FINDINGS: There is a spinal needle adjacent to medial side proximal tibia shaft, mid depth. There is osteoarthritis again seen knee joint, greater narrowing medial side with associated marginal osteophytes femoral condyles and tibial plateau. FL/FL guidance in treatment room IMPRESSION: Fluoroscopy for pain management procedure.
== END 2020-10-12 07:54 | disposition home or self-care (01) ==
LOC: HO.RADIR 07:53
PROVIDERS: Visit Provider Anesthesiology
DX: M17.11 Unilateral primary osteoarthritis, right knee (principal); F17.210 Nicotine dependence, cigarettes, uncomplicated
CPT/HCPCS: 64454

== ENCOUNTER 2020-10-14 16:30 | Emergency (ER) | payer MEDICARE, MEDICAID, SELFPAY ==
[2020-10-14 16:50] VITALS: BP 156/109; PULSE 104; RESP 16; TEMP 36.4; O2SAT 98; BMI 41.6
== END 2020-10-14 18:19 | disposition left against medical advice (07) ==
PROVIDERS: Emergency Provider Emergency Medicine; PCP General Practice
DX: M25.561 Pain in right knee (principal)
CPT/HCPCS: 99281; 99282

== ENCOUNTER 2020-10-15 18:55 | Emergency (ER) | payer MEDICARE, MEDICAID, SELFPAY | END 2020-10-15 20:05 | disposition left against medical advice (07) | PROVIDERS: Emergency Provider Emergency Medicine | DX: M25.569 Pain in unspecified knee (principal) ==

== ENCOUNTER 2020-10-15 20:29 | Emergency (ER) | payer MEDICARE, MEDICAID, SELFPAY ==
[2020-10-15 20:37] VITALS: BP 146/102; PULSE 105; RESP 20; TEMP 37.3; O2SAT 96; BMI 41.6
[2020-10-15 21:28] LABS: Appearance Urine CLEAR; Color Urine STRAW; Glucose Urine UA NEG (NEG); Leukocyte Esterase Urine NEG (NEG); Nitrite Urine NEG (NEG); Specific Gravity - Urine <= 1.005 (1.005-1.025); UACC Culture Trigger NO; Urine Blood 2+ (NEG); Urine Ketones NEG (NEG); Urine Protein NEG (NEG-TRACE)
[2020-10-15 21:29] LABS: UPreg QC Valid YES; Urine Pregnancy NEGATIVE (NEGATIVE)
[2020-10-15 21:32] LABS: Mucus Urine TRACE /LPF; Squamous Epithelial Cell Urine TRACE /LPF; WBC Urine 0 /HPF (0-4)
[2020-10-15 21:36] LABS: COVID-19 Test Negative (Negative); IDNOW Serial# 9DD0AD1C
[2020-10-15 21:55] LABS: Amphetamine Screen Urine Not Detected (Not Detect); Barbiturates, Urine Not Detected (Not Detect); Benzodiazepines Screen Urine Not Detected (Not Detect); Cannabinoid Screen Urine Not Detected (Not Detect); Cocaine Screen Urine Not Detected (Not Detect); Fentanyl, urine Not Detected (Not Detect); Opiate Screen Urine Not Detected (Not Detect); Phencyclidine Screen Urine Not Detected (Not Detect)
[2020-10-15 23:52] VITALS: RESP 16
--- NOTE | 2020-10-16 00:04 | PC.NURSE ---
Patient is in bed appears sleeping, respiration +/=/unlabored bilaterally, RR is 16, [facility] referral completed/confirmed/no ETA at this time, will continue to monitor.
[2020-10-16 00:33] VITALS: BP 147/103; PULSE 95; O2SAT 96
[2020-10-16] MEDS: Ibuprofen 600 MG TABLET PO ×2 (00:43→11:11)
[2020-10-16] MEDS: LORazepam 1 MG TABLET 2 MG PO (03:09)
--- NOTE | 2020-10-16 03:15 | PC.NURSE ---
Patient just woke up, upset/frustrated/agitated over not having clinician available for the assessment, expressed her concern and fear of losing her job, provider notified when patient got further agiatated/loud/disruptive, provider ordered Ativan 2 mg PO/administered as ordered/pending effect, will continue to monitor.
--- NOTE | 2020-10-16 03:54 | ED.PSYCH ---
HPI - Psych General Chief Complaint: Psychiatric Symptoms Stated Complaint: CRISIS Time Seen by Provider: 10/16/20 00:24 Source: patient and EMS Mode of arrival: EMS Limitations: altered mental status History of Present Illness HPI Narrative: Patient is brought to the emergency room by EMS. Patient [place] for driving reckless, patient got escalated, made suicidal statements to Police Department, PD section the patient and was brought to the hospital by EMS. On arrival, patient denies SI or HI. Related Data Home Medications Medication Instructions Recorded Confirmed baclofen 10 mg tablet 1 tab PO TID PRN 10/15/20 10/15/20 divalproex 250 mg tablet,delayed 5 tab PO DAILY 10/15/20 10/15/20 release ferrous sulfate 325 mg (65 mg 1 tab PO DAILY 10/15/20 10/15/20 iron) tablet (FeroSul) gabapentin 300 mg capsule 1 - 3 cap PO BEDTIME 10/15/20 10/15/20 levothyroxine 25 mcg tablet 1 tab PO DAILY 10/15/20 10/15/20 lisinopril 5 mg tablet 1 tab PO DAILY 10/15/20 10/15/20 loratadine 10 mg tablet 1 tab PO DAILY 10/15/20 10/15/20 mirtazapine 7.5 mg tablet 1 tab PO BEDTIME 10/15/20 10/15/20 omeprazole 20 mg capsule,delayed 1 cap PO DAILY 10/15/20 10/15/20 release trazodone 50 mg tablet 1 tab PO BEDTIME 10/15/20 10/15/20 Previous Rx's Medication Instructions Recorded cyclobenzaprine 10 mg tablet 10 mg PO TID PRN #90 tab 05/06/20 ferrous sulfate 325 mg (65 mg 325 mg PO DAILY #90 tab 05/06/20 iron) tablet levothyroxine 25 mcg tablet 25 mcg PO DAILY #90 tab 05/06/20 lisinopril 5 mg tablet 5 mg PO DAILY #90 tab 05/06/20 omeprazole 20 mg capsule,delayed 20 mg PO DAILY #90 cap 05/06/20 release trazodone 50 mg tablet 50 mg PO BEDTIME #90 tab 05/06/20 chlorpromazine 25 mg tablet 50 mg PO DAILY PRN 30 Days #30 tab 08/24/20 divalproex 250 mg tablet,delayed 1,250 mg PO DAILY 30 Days #150 tab 08/24/20 release (Depakote) nicotine (polacrilex) 2 mg gum 4 mg BUCCAL Q2H PRN 30 Days #50 ea 08/24/20 paliperidone palmitate 156 mg/mL 156 mg IM QMONTH 30 Days #1 ml 08/24/20 intramuscular syringe (Invega Sustenna) prazosin 1 mg capsule 5 mg PO BEDTIME 30 Days #150 cap 08/24/20 Allergies Allergy/AdvReac Type Severity Reaction Status Date / Time hydromorphone Allergy Unknown Unknown Verified 10/04/20 09:20 insect venom [INSECT BITES] Allergy Unknown UNKNOWN Verified 10/04/20 09:20 Penicillins Allergy Unknown UNKNOWN Verified 10/04/20 09:20 sulfamethoxazole Allergy Unknown UNKNOWN Verified 10/04/20 09:20 [From BACTRIM] trimethoprim [From BACTRIM] Allergy Unknown UNKNOWN Verified 10/04/20 09:20 From DILAUDID Allergy Unknown RASH Uncoded 11/06/19 16:41 Review of Systems Review of Systems: Unobtainable, states am not doing well and refuses to answer any other questions Yes Unobtainable due to mental condition PMFSH Past Medical History Medical History Alcohol abuse Hypertension Psychiatric diagnosis Surgical History History of ankle surgery History of cholecystectomy Social History Social History (Updated 10/04/20 @ 09:22 by Smith Pabon) Household Members: None Household Members Other:: lives by self Housing: Apartment Do you presently have visiting nurse or other home services: No Alcohol intake: unknown Patient Tobacco Use Status: Current everyday Tobacco user Tobacco use type: Cigarette e-Cigarette/Vaping Use: Currently Using Second Hand Smoke Exposure: No Advance Directives: No Advance Directives Information Provided: Yes Patient : No service: No 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al status: employed 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 Oriented X3. No acute distress. Sleeping but easily arousable Eyes: Pupils equal, round and reactive to light. ENT: Pharynx normal. Neck: Normal inspection. Neck supple. No lymph nodes noted. No crepitus CVS: Normal heart rate and rhythm. Pulses normal. Normal S1 and S2 Respiratory: No respiratory distress. Breath sounds normal. No Wheezing. No rales Abdomen: Soft and nontender. No rigidity. No distention. good BS x4 Skin: Skin warm and dry. Normal skin color. Normal skin turgor. Extremities:No Lacerations. No Rash Neuro: Oriented X 3. No motor deficit. No sensory deficit. Moving all extermities. No slurred speech. Course Course Course Narrative: Patient has history of a baclofen overdose in the past. Patient denies trying to use any substance to hurt herself. [facility] consult pending Sign-out given to Dr. Joaquin [facility] - Psych Lab Data Labs: Lab Results 10/15/20 10/15/20 10/15/20 Range/Units 21:06 21:08 21:08 Urine Color STRAW Urine Appearance CLEAR Urine pH 6.0 (5.0-8.0) Ur Specific [place] <= 1.005 (1.005-1.025) Urine Protein NEG (NEG-TRACE) MG/DL Urine Glucose (UA) NEG (NEG) MG/DL Urine Ketones NEG (NEG) MG/DL Urine Blood 2+ H (NEG) Urine Nitrite NEG (NEG) Ur Leukocyte Esterase NEG (NEG) Urine RBC 5-9 H (0) /HPF Urine WBC 0 (0-4) /HPF Ur Squamous Epith Cells TRACE /LPF Urine Bacteria NONE /LPF Urine Mucus TRACE /LPF Urine Test (NEGATIVE) Urine Opiates Screen Not Detected (Not Detect) Urine Fentanyl Screen Not Detected (Not Detect) Ur Barbiturates Screen Not Detected (Not Detect) Ur Phencyclidine Scrn Not Detected (Not Detect) Ur Amphetamines Screen Not Detected (Not Detect) U Benzodiazepines Scrn Not Detected (Not Detect) Urine Cocaine Screen Not Detected (Not Detect) U Marijuana (THC) Screen Not Detected (Not Detect) COVID-19 ([facility]) Negative (Negative) COVID-19 Clin Com See Note 10/15/20 Range/Units 21:08 Urine Color Urine Appearance Urine pH (5.0-8.0) Ur Specific [place] (1.005-1.025) Urine Protein (NEG-TRACE) MG/DL Urine Glucose (UA) (NEG) MG/DL Urine Ketones (NEG) MG/DL Urine Blood (NEG) Urine Nitrite (NEG) Ur Leukocyte Esterase (NEG) Urine RBC (0) /HPF Urine WBC (0-4) /HPF Ur Squamous Epith Cells /LPF Urine Bacteria /LPF Urine Mucus /LPF Urine Test NEGATIVE (NEGATIVE) Urine Opiates Screen (Not Detect) Urine Fentanyl Screen (Not Detect) Ur Barbiturates Screen (Not Detect) Ur Phencyclidine Scrn (Not Detect) Ur Amphetamines Screen (Not Detect) U Benzodiazepines Scrn (Not Detect) Urine Cocaine Screen (Not Detect) U Marijuana (THC) Screen (Not Detect) COVID-19 ([facility]) (Negative) COVID-19 Clin Com Discharge Plan Discharge Clinical Impression: Feeling suicidal Prescriptions: No Action cyclobenzaprine 10 mg tablet 10 mg PO TID PRN (Reason: muscle spasm) Qty: 90 RF: 3 omeprazole 20 mg capsule,delayed release(DR/EC) 20 mg PO DAILY Qty: 90 RF: 3 trazodone 50 mg tablet 50 mg PO BEDTIME Qty: 90 RF: 3 levothyroxine 25 mcg tablet 25 mcg PO DAILY Qty: 90 RF: 3 ferrous sulfate 325 mg (65 mg iron) tablet 325 mg PO DAILY Qty: 90 RF: 3 lisinopril 5 mg tablet 5 mg PO DAILY Qty: 90 RF: 3 nicotine (polacrilex) 2 mg Gum 4 mg buccal Q2H PRN (Reason: Nicotine Cravings) 30 Days Qty: 50 RF: 0 prazosin 1 mg Capsule 5 mg PO BEDTIME 30 Days Qty: 150 RF: 0 Invega Sustenna 156 mg/mL Syringe 156 mg IM QMONTH 30 Days Qty: 1 RF: 0 chlorpromazine 25 mg Tablet 50 mg PO DAILY PRN (Reason: Anxiety/agitation) 30 Days Qty: 30 RF: 0 divalproex [Depakote] 250 mg tablet,delayed release (DR/EC) 1,250 mg PO DAILY 30 Days Qty: 150 RF: 0 divalproex 250 mg tablet,delayed release (DR/EC) 5 tab PO DAILY RF: 0 trazodone 50 mg tablet 1 tab PO BEDTIME RF: 0 levothyroxine 25 mcg tablet 1 tab PO DAILY RF: 0 baclofen 10 mg tablet 1 tab PO TID PRN (Reason: muscle spasm) RF: 0 ferrous sulfate [FeroSul] 325 mg (65 mg iron) tablet 1 tab PO DAILY RF: 0 gabapentin 300 mg capsule 1 - 3 cap PO BEDTIME RF: 0 omeprazole 20 mg capsule,delayed release(DR/EC) 1 cap PO DAILY RF: 0 lisinopril 5 mg tablet 1 tab PO DAILY RF: 0 loratadine 10 mg tablet 1 tab PO DAILY RF: 0 mirtazapine 7.5 mg tablet 1 tab PO BEDTIME RF: 0
--- NOTE | 2020-10-16 05:36 | PC.NURSE ---
Patient at this time appears sleeping, no distress observed/reported, positive from Ativan 2 mg she received earlier, patient behavior is impulsive and can be disruptive, [facility] referral completed /confirmed/awaiting assessment in the morning, will continue to monitor.
--- NOTE | 2020-10-16 07:04 | PC.NURSE ---
patient remained asleep at beginning of shift, soon after awakening some statements of those people lied to me, said clinician would be here at 7am irritable, making statements as if she is being mistreated, then soon thereafter singing somewhat loudly in room.
[2020-10-16 09:40] VITALS: BP 141/109; PULSE 96; RESP 18; O2SAT 95
--- NOTE | 2020-10-16 09:45 | PC.NURSE ---
client, recently irritable and argumentative, now sings quietly to self in group area. complaints of hospital stay and being able to access own medications, makes audble statements next time i wont come to hospital, ill just shoot myself in the head
[2020-10-16] MEDS: Divalproex Sodium 250 MG TABLET.DR 1250 MG PO (11:10)
[2020-10-16 11:11] VITALS: BP 141/109; PULSE 96
[2020-10-16] MEDS: lisinopriL 5 MG TABLET PO (11:11)
[2020-10-16] MEDS: Omeprazole 20 MG CAPSULE.DR PO (11:12)
== END 2020-10-16 13:34 | disposition home or self-care (01) ==
PROVIDERS: Emergency Provider Emergency Medicine
DX: R45.851 Suicidal ideations (principal); F32.9 Major depressive disorder, single episode, unspecified; F99 Mental disorder, not otherwise specified; I10 Essential (primary) hypertension; F10.10 Alcohol abuse, uncomplicated; F19.10 Other psychoactive substance abuse, uncomplicated; F17.210 Nicotine dependence, cigarettes, uncomplicated; Z79.899 Other long term (current) drug therapy; Z20.822 Contact with and (suspected) exposure to COVID-19; Z91.5 Personal history of self-harm
CPT/HCPCS: 36415; 80307; 81001; 81025; 87635; 99284; 99285

== ENCOUNTER 2020-10-19 15:44 | Emergency (ER) | payer MEDICARE, MEDICAID, SELFPAY ==
[2020-10-19 15:53] VITALS: BP 141/95; PULSE 100; RESP 16; TEMP 36.8; O2SAT 96; BMI 42.3
--- NOTE | 2020-10-19 16:37 | ED_ITS ---
HPI - Psych General Chief Complaint: Overdose Stated Complaint: SI W/ OD Time Seen by Provider: 10/19/20 16:13 Source: patient Mode of arrival: ambulatory Limitations: no limitations History of Present Illness HPI Narrative: Patient comes emergency room by EMS. Patient states that she wants to kill herself because she has chronic knee pain. Patient states that she took over 50 tablets of gabapentin of unknown dose and 50 tablets of baclofen. Patient states that she wants to kill herself. Patient complaining of feeling hungry at the moment, states she has not eaten for 2 days. Related Data Home Medications Medication Instructions Recorded Confirmed baclofen 10 mg tablet 1 tab PO TID PRN 10/15/20 10/19/20 divalproex 250 mg tablet,delayed 5 tab PO DAILY 10/15/20 10/19/20 release gabapentin 300 mg capsule 1 - 3 cap PO BEDTIME 10/15/20 10/19/20 lisinopril 5 mg tablet 1 tab PO DAILY 10/15/20 10/15/20 loratadine 10 mg tablet 1 tab PO DAILY 10/15/20 10/15/20 mirtazapine 7.5 mg tablet 1 tab PO BEDTIME 10/15/20 10/15/20 omeprazole 20 mg capsule,delayed 1 cap PO DAILY 10/15/20 10/15/20 release trazodone 50 mg tablet 1 tab PO BEDTIME 10/15/20 10/15/20 Previous Rx's Medication Instructions Recorded cyclobenzaprine 10 mg tablet 10 mg PO TID PRN #90 tab 05/06/20 ferrous sulfate 325 mg (65 mg 325 mg PO DAILY #90 tab 05/06/20 iron) tablet levothyroxine 25 mcg tablet 25 mcg PO DAILY #90 tab 05/06/20 lisinopril 5 mg tablet 5 mg PO DAILY #90 tab 05/06/20 omeprazole 20 mg capsule,delayed 20 mg PO DAILY #90 cap 05/06/20 release trazodone 50 mg tablet 50 mg PO BEDTIME #90 tab 05/06/20 chlorpromazine 25 mg tablet 50 mg PO DAILY PRN 30 Days #30 tab 08/24/20 divalproex 250 mg tablet,delayed 1,250 mg PO DAILY 30 Days #150 tab 08/24/20 release (Depakote) nicotine (polacrilex) 2 mg gum 4 mg BUCCAL Q2H PRN 30 Days #50 ea 08/24/20 paliperidone palmitate 156 mg/mL 156 mg IM QMONTH 30 Days #1 ml 08/24/20 intramuscular syringe (Invega Sustenna) prazosin 1 mg capsule 5 mg PO BEDTIME 30 Days #150 cap 08/24/20 Allergies Allergy/AdvReac Type Severity Reaction Status Date / Time hydromorphone Allergy Unknown Unknown Verified 10/04/20 09:20 insect venom [INSECT BITES] Allergy Unknown UNKNOWN Verified 10/04/20 09:20 Penicillins Allergy Unknown UNKNOWN Verified 10/04/20 09:20 sulfamethoxazole Allergy Unknown UNKNOWN Verified 10/04/20 09:20 [From BACTRIM] trimethoprim [From BACTRIM] Allergy Unknown UNKNOWN Verified 10/04/20 09:20 From DILAUDID Allergy Unknown RASH Uncoded 11/06/19 16:41 Review of Systems Review of Systems: Constitutional : No Weight loss, No Fever, No Chills, No Night Sweats, No Fatigue, No Malaise ENT/Mouth : No Hearing loss, No Ear Pain, No Nasal Congestion, No Sinus Pain, No Hoarseness, No sore throat, No Rhinorrhea, No Swallowing Difficulty Eyes: No Eye Pain, No Swelling, No Redness, No Foreign Body, No Discharge, No Vision Changes Cardiovascular : No Chest Pain, No SOB, No Dyspnea on Exertion, No Orthopnea, No Edema, No Palpitations Respiratory : No Cough, No Sputum, No Wheezing, No Smoke Exposure, No Dyspnea Gastrointestinal : No Nausea, No Vomiting, No Diarrhea, No Constipation, No abdominal Pain, No Hematochezia, No Melena Genitourinary : no irregular bleeding, No Dysuria, No Urinary Frequency, No Hematuria, No Urinary Incontinence, No Urgency, No Flank Pain, No Urinary Flow Changes, No Hesitancy Musculoskeletal : Complaining of chronic left knee pain Skin : No Skin Lesions, No rash Neuro : No Weakness, No Numbness, No Paresthesias, No Loss of Consciousness, No Dizziness, No Headache Psych : Complaining of anxiety, depression, suicidal ideation Heme/Lymph: No Bruising, No Bleeding,No Lymphadenopathy Endocrine : No Polyuria, No Polydipsia, No Temperature Intolerance PMFSH Past Medical History Medical History Alcohol abuse Hypertension Psychiatric diagnosis Surgical History History of ankle surgery History of cholecystectomy Social History Social History (Updated 10/04/20 @ 09:22 by Smith Pabon) Household Members: None Household Members Other:: lives by self Housing: Apartment Do you presently have visiting nurse or other home services: No Alcohol intake: unknown Patient Tobacco Use Status: Current everyday Tobacco user Tobacco use type: Cigarette e-Cigarette/Vaping Use: Currently Using Second Hand Smoke Exposure: No Advance Directives: No Advance Directives Information Provided: No Patient : No service: No 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al status: employed 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 handed/ [employer] Sexual orientation: Did not discuss Physical Exam Vital Signs: Vital Signs: Last Vital Signs Temp 98.7 F 10/19/20 18:37 Pulse 103 H 10/19/20 18:37 Resp 16 10/19/20 18:37 BP 121/91 H 10/19/20 18:37 Pulse Ox 94 10/19/20 18:37 Body Mass Index 42.3 Const: Other: Appearance: Alert. Oriented X3. No acute distress. Eyes: Pupils equal, round and reactive to light. ENT: Pharynx normal. Neck: Normal inspection. Neck supple. No lymph nodes noted. No crepitus CVS: Normal heart rate and rhythm. Pulses normal. Normal S1 and S2 Respiratory: No respiratory distress. Breath sounds normal. No Wheezing. No rales Abdomen: Soft and nontender. No rigidity. No distention. good BS x4 Skin: Skin warm and dry. Normal skin color. Normal skin turgor. Extremities: No lower extremity edema. No lower extremity edema. No Lacerations. No Rash Neuro: Oriented X 3. No motor deficit. No sensory deficit. Moving all extermities. No slurred speech. Cranial nerves 2-12 grossly intact Psych: Pressured speech, seems manic Course Course Course Narrative: Behavioral health network consult pending. Physician of starvation started at 18:30, vital stable Sign-out given to Dr. Laz BARRON - Psych Lab Data Result diagrams: 10/19/20 16:32 10/19/20 16:32 Labs: Lab Results 10/19/20 10/19/20 10/19/20 Range/Units 16:32 16:32 16:47 WBC 9.5 (4.8-10.8) X10*3/uL RBC 4.56 (4.20-5.50) X10*6/uL Hgb 11.0 L (12.0-16.0) g/dl Hct 34.3 L (37-47) % MCV 75.2 L (80-98) fL MCH 24.1 L (27.0-33.0) pg MCHC 32.1 (31.0-35.0) g/dl RDW 13.6 (11.0-16.0) % Plt Count 292 (160-400) X10*3/uL MPV 11.3 (9.4-12.3) fL Immature Gran % (Auto) 0.3 (0.0-0.4) % Neut % (Auto) 66.8 (45-73) % Lymph % (Auto) 25.3 (20-40) % [place] % (Auto) 6.6 (2-11) % Eos % (Auto) 0.7 (0-4) % Baso % (Auto) 0.3 (0-2) % Lymph # (Auto) 2.4 (1.2-4.9) X10*3/uL [place] # (Auto) 0.6 (0.1-1.2) X10*3/uL Eos # (Auto) 0.1 (0.0-0.4) X10*3/uL Baso # (Auto) 0.0 (0.0-0.2) X10*3/uL Abs Immat Gran (auto) 0.03 (0.00-0.03) X10*3/uL Absolute Neuts (auto) 6.4 (2.0-8.3) X10*3/uL Absolute Nucleated RBC 0.000 (0.0-0.012) X10*3/uL Nucleated RBC % (auto) 0.0 (0.0-0.2) /100WBC Sodium 133 L (135-145) mmol/L Potassium 3.9 (3.3-5.1) mmol/L Chloride 100 (96-108) mmol/L Carbon Dioxide 25 (22-29) mmol/L Anion Gap 12 (12-20) BUN 5 L (9-16) mg/dL Creatinine 0.68 (0.5-1.4) mg/dL Estim Creat Clear Calc 126.0 Estimated GFR > 60 Random Glucose 79 (60-115) mg/dL Calcium 9.4 (8.4-10.2) mg/dL Total Bilirubin 0.4 (0.0-1.0) mg/dL Direct Bilirubin 0.2 (0.0-0.5) mg/dL AST 23 (5-31) U/L ALT 17 (0-31) U/L Alkaline Phosphatase 61 (39-117) U/L Total Protein 7.0 (6.5-8.0) g/dL Albumin 4.2 (3.5-5.0) g/dL Urine Color STRAW Urine Appearance CLEAR Urine pH 6.5 (5.0-8.0) Ur Specific [place] <= 1.005 (1.005-1.025) Urine Protein NEG (NEG-TRACE) MG/DL Urine Glucose (UA) NEG (NEG) MG/DL Urine Ketones NEG (NEG) MG/DL Urine Blood NEG (NEG) Urine Nitrite NEG (NEG) Ur Leukocyte Esterase NEG (NEG) Urine Test (NEGATIVE) Salicylates < 5.0 L (15-30) mg/dL Urine Opiates Screen (Not Detect) Urine Fentanyl Screen (Not Detect) Acetaminophen < 1 (<30) mcg/mL Ur Barbiturates Screen (Not Detect) Ur Phencyclidine Scrn (Not Detect) Ur Amphetamines Screen (Not Detect) U Benzodiazepines Scrn (Not Detect) Urine Cocaine Screen (Not Detect) U Marijuana (THC) Screen (Not Detect) 10/19/20 10/19/20 Range/Units 16:47 16:47 WBC (4.8-10.8) X10*3/uL RBC (4.20-5.50) X10*6/uL Hgb (12.0-16.0) g/dl Hct (37-47) % MCV (80-98) fL MCH (27.0-33.0) pg MCHC (31.0-35.0) g/dl RDW (11.0-16.0) % Plt Count (160-400) X10*3/uL MPV (9.4-12.3) fL Immature Gran % (Auto) (0.0-0.4) % Neut % (Auto) (45-73) % Lymph % (Auto) (20-40) % [place] % (Auto) (2-11) % Eos % (Auto) (0-4) % Baso % (Auto) (0-2) % Lymph # (Auto) (1.2-4.9) X10*3/uL [place] # (Auto) (0.1-1.2) X10*3/uL Eos # (Auto) (0.0-0.4) X10*3/uL Baso # (Auto) (0.0-0.2) X10*3/uL Abs Immat Gran (auto) (0.00-0.03) X10*3/uL Absolute Neuts (auto) (2.0-8.3) X10*3/uL Absolute Nucleated RBC (0.0-0.012) X10*3/uL Nucleated RBC % (auto) (0.0-0.2) /100WBC Sodium (135-145) mmol/L Potassium (3.3-5.1) mmol/L Chloride (96-108) mmol/L Carbon Dioxide (22-29) mmol/L Anion Gap (12-20) BUN (9-16) mg/dL Creatinine (0.5-1.4) mg/dL Estim Creat Clear Calc Estimated GFR Random Glucose (60-115) mg/dL Calcium (8.4-10.2) mg/dL Total Bilirubin (0.0-1.0) mg/dL Direct Bilirubin (0.0-0.5) mg/dL AST (5-31) U/L ALT (0-31) U/L Alkaline Phosphatase (39-117) U/L Total Protein (6.5-8.0) g/dL Albumin (3.5-5.0) g/dL Urine Color Urine Appearance Urine pH (5.0-8.0) Ur Specific [place] (1.005-1.025) Urine Protein (NEG-TRACE) MG/DL Urine Glucose (UA) (NEG) MG/DL Urine Ketones (NEG) MG/DL Urine Blood (NEG) Urine Nitrite (NEG) Ur Leukocyte Esterase (NEG) Urine Test NEGATIVE (NEGATIVE) Salicylates (15-30) mg/dL Urine Opiates Screen Not Detected (Not Detect) Urine Fentanyl Screen Not Detected (Not Detect) Acetaminophen (<30) mcg/mL Ur Barbiturates Screen Not Detected (Not Detect) Ur Phencyclidine Scrn Not Detected (Not Detect) Ur Amphetamines Screen Not Detected (Not Detect) U Benzodiazepines Scrn Not Detected (Not Detect) Urine Cocaine Screen Not Detected (Not Detect) U Marijuana (THC) Screen Not Detected (Not Detect) Discharge Plan Discharge Clinical Impression: Suicidal ideation Prescriptions: No Action cyclobenzaprine 10 mg tablet 10 mg PO TID PRN (Reason: muscle spasm) Qty: 90 RF: 3 omeprazole 20 mg capsule,delayed release(DR/EC) 20 mg PO DAILY Qty: 90 RF: 3 trazodone 50 mg tablet 50 mg PO BEDTIME Qty: 90 RF: 3 levothyroxine 25 mcg tablet 25 mcg PO DAILY Qty: 90 RF: 3 ferrous sulfate 325 mg (65 mg iron) tablet 325 mg PO DAILY Qty: 90 RF: 3 lisinopril 5 mg tablet 5 mg PO DAILY Qty: 90 RF: 3 nicotine (polacrilex) 2 mg Gum 4 mg buccal Q2H PRN (Reason: Nicotine Cravings) 30 Days Qty: 50 RF: 0 prazosin 1 mg Capsule 5 mg PO BEDTIME 30 Days Qty: 150 RF: 0 Invega Sustenna 156 mg/mL Syringe 156 mg IM QMONTH 30 Days Qty: 1 RF: 0 chlorpromazine 25 mg Tablet 50 mg PO DAILY PRN (Reason: Anxiety/agitation) 30 Days Qty: 30 RF: 0 divalproex [Depakote] 250 mg tablet,delayed release (DR/EC) 1,250 mg PO DAILY 30 Days Qty: 150 RF: 0 divalproex 250 mg tablet,delayed release (DR/EC) 5 tab PO DAILY RF: 0 trazodone 50 mg tablet 1 tab PO BEDTIME RF: 0 baclofen 10 mg tablet 1 tab PO TID PRN (Reason: muscle spasm) RF: 0 gabapentin 300 mg capsule 1 - 3 cap PO BEDTIME RF: 0 omeprazole 20 mg capsule,delayed release(DR/EC) 1 cap PO DAILY RF: 0 lisinopril 5 mg tablet 1 tab PO DAILY RF: 0 loratadine 10 mg tablet 1 tab PO DAILY RF: 0 mirtazapine 7.5 mg tablet 1 tab PO BEDTIME RF: 0
--- NOTE | 2020-10-19 16:37 | ECG_ITS ---
Test Reason : OVERDOSE Blood Pressure : / mmHG Vent. Rate : 097 BPM Atrial Rate : 097 BPM P-R Int : 162 ms QRS Dur : 082 ms QT Int : 374 ms P-R-T Axes : 060 017 029 degrees QTc Int : 474 ms Normal sinus rhythm Possible Left atrial enlargement Borderline ECG When compared with ECG of 23-MAY-2016 19:58, Vent. rate has increased BY 32 BPM Referred By: Neeru Aguilar Electronically Signed By:DELROY SZYMANSKI
[2020-10-19 16:45] LABS: Basophils Percent Auto 0.3 % (0-2); Eosinophils Absolute Auto 0.1 X10*3/uL (0.0-0.4); Eosinophils Percent Auto 0.7 % (0-4); Hematocrit 34.3 % (37-47); Imm Gran Abs Auto 0.03 X10*3/uL (0.00-0.03); Imm Gran Pct Auto 0.3 % (0.0-0.4); Lymphocytes Absolute Auto 2.4 X10*3/uL (1.2-4.9); Lymphocytes Percent Auto 25.3 % (20-40); MANUAL DIFF FLAG NO; Mean Corpuscular HGB Conc 32.1 g/dl (31.0-35.0); Mean Corpuscular Hemoglobin 24.1 pg (27.0-33.0); Mean Corpuscular Volume 75.2 fL (80-98); Mean Platelet Volume 11.3 fL (9.4-12.3); Monocytes Absolute Auto 0.6 X10*3/uL (0.1-1.2); Monocytes Percent Auto 6.6 % (2-11); Neutrophils Absolute Auto 6.4 X10*3/uL (2.0-8.3); Neutrophils Percent Auto 66.8 % (45-73); Platelet Count 292 X10*3/uL (160-400); Red Blood Count 4.56 X10*6/uL (4.20-5.50); Red Cell Distribution Width 13.6 % (11.0-16.0); White Blood Count 9.5 X10*3/uL (4.8-10.8)
[2020-10-19 16:55] LABS: UPreg QC Valid YES; Urine Pregnancy NEGATIVE (NEGATIVE)
[2020-10-19 16:58] LABS: Appearance Urine CLEAR; Color Urine STRAW; Glucose Urine UA NEG (NEG); Leukocyte Esterase Urine NEG (NEG); Nitrite Urine NEG (NEG); PH 6.5 (5.0-8.0); Specific Gravity - Urine <= 1.005 (1.005-1.025); Urine Blood NEG (NEG); Urine Ketones NEG (NEG); Urine Protein NEG (NEG-TRACE)
[2020-10-19 17:13] LABS: Amphetamine Screen Urine Not Detected (Not Detect); Barbiturates, Urine Not Detected (Not Detect); Benzodiazepines Screen Urine Not Detected (Not Detect); Cocaine Screen Urine Not Detected (Not Detect); Fentanyl, urine Not Detected (Not Detect); Opiate Screen Urine Not Detected (Not Detect); Phencyclidine Screen Urine Not Detected (Not Detect)
[2020-10-19 17:19] LABS: Cannabinoid Screen Urine Not Detected (Not Detect)
[2020-10-19 17:20] LABS: Alanine Aminotransferase 17 U/L (0-31); Albumin Level 4.2 g/dL (3.5-5.0); Alkaline Phosphatase 61 U/L (39-117); Anion Gap 12 (12-20); Aspartate Amino Transferase 23 U/L (5-31); Bilirubin Direct 0.2 mg/dL (0.0-0.5); Bilirubin Total 0.4 mg/dL (0.0-1.0); Blood Urea Nitrogen 5 mg/dL (9-16); Calcium 9.4 mg/dL (8.4-10.2); Carbon Dioxide 25 mmol/L (22-29); Chloride 100 mmol/L (96-108); Estimated Glomerular Filt Rate > 60; Glucose Random 79 mg/dL (60-115); Potassium 3.9 mmol/L (3.3-5.1); Sodium 133 mmol/L (135-145)
[2020-10-19 17:32] LABS: Acetaminophen LAB < 1 mcg/mL (<30)
[2020-10-19 17:40] LABS: Salicylate < 5.0 mg/dL (15-30)
--- NOTE | 2020-10-19 18:05 | PC.NURSE ---
Referral form completed and sent to [facility]
[2020-10-19 18:37] VITALS: BP 121/91; PULSE 103; RESP 16; TEMP 37.1; O2SAT 94
[2020-10-19 23:51] VITALS: BP 153/98; PULSE 85; RESP 18; TEMP 36.8; O2SAT 99
[2020-10-19] MEDS: Baclofen 10 MG TABLET PO (23:54)
[2020-10-19] MEDS: Gabapentin 300 MG CAPSULE PO (23:54)
[2020-10-19] MEDS: Cyclobenzaprine HCl 10 MG TABLET PO (23:54)
[2020-10-20 01:12] LABS: COVID-19 Test Negative (Negative)
--- NOTE | 2020-10-20 02:16 | PC.NURSE ---
Patient loud and disruptive, patient comes out of her room multiple times for different needs, pacing, refused to take medication to help her calm down, security called for support, patient is extremely accusatory wanted to leave, patient was made aware that she needs to see N in the morning for clearance, will continue to monitor.
--- NOTE | 2020-10-20 02:31 | PC.NURSE ---
Patient is currently yelling, crying, screaming, tangential, expressing her non-stop madness and grievances towards police, hospital, and her & family member, how they not treated her well, expressing hopelessness, advised to keep quiet and respect other patient, however, patient stated I don't care will continue to monitor.
[2020-10-20 03:00] VITALS: RESP 18
[2020-10-20] MEDS: LORazepam 2 MG/ML VIAL IM (03:00)
[2020-10-20] MEDS: Haloperidol Lactate 5 MG/ML VIAL IM (03:00)
--- NOTE | 2020-10-20 03:00 | PC.NURSE ---
Patient continued being loud disruptive when advised to keep her voice down to respect other patient's sleep, patient became extremely agitated, started screaming louder and harder, threatening, provider notified/ordered Ativan 2 mg IM and Haldol 5 mg IM, patient took it voluntarily, no hands on, pending effect, patient is being observed on 1:1 for safety, will continue to monitor.
[2020-10-20 03:15] VITALS: RESP 18
[2020-10-20 03:30] VITALS: RESP 16
[2020-10-20 03:45] VITALS: RESP 16
[2020-10-20 04:00] VITALS: RESP 16
--- NOTE | 2020-10-20 05:56 | PC.NURSE ---
Patient has been sleeping since 299, s/p medication restraint, no distress observed/reported at this time, patient's behavior in general is labile, loud, disruptive, tearful, restless, accusatory, at time threatening, medication compliant, appetite good, elimination intact, VSS, will continue to monitor.
--- NOTE | 2020-10-20 07:19 | PC.NURSE ---
patient appears to remain asleep at present appears in no distress at present
[2020-10-20 10:03] VITALS: BP 153/98; PULSE 85
[2020-10-20] MEDS: Ferrous Sulfate 324 MG TABLET.DR PO (10:03)
[2020-10-20] MEDS: lisinopriL 5 MG TABLET PO (10:03)
[2020-10-20] MEDS: Divalproex Sodium 250 MG TABLET.DR 1250 MG PO (10:03)
[2020-10-20] MEDS: Levothyroxine Sodium 25 MCG TABLET PO (10:03)
== END 2020-10-20 14:04 | disposition home or self-care (01) ==
PROVIDERS: Emergency Medicine; Emergency Provider Emergency Medicine
DX: R45.851 Suicidal ideations (principal); M25.569 Pain in unspecified knee; Z20.822 Contact with and (suspected) exposure to COVID-19; I10 Essential (primary) hypertension; F99 Mental disorder, not otherwise specified; F19.10 Other psychoactive substance abuse, uncomplicated; F17.210 Nicotine dependence, cigarettes, uncomplicated; Z79.899 Other long term (current) drug therapy
CPT/HCPCS: 36415; 80048; 80076; 80143; 80179; 80307; 81003; 81025; 85025; 87635; 93005; 96372; 99285; J2060

== ENCOUNTER → 2020-11-03 16:19 | Outpatient (BNVA) | payer MEDICARE, MEDICAID, SELFPAY | PROVIDERS: Visit Provider Anesthesiology | DX: M17.11 Unilateral primary osteoarthritis, right knee (principal); M54.5 Low back pain; I10 Essential (primary) hypertension; F10.10 Alcohol abuse, uncomplicated; F99 Mental disorder, not otherwise specified; F17.210 Nicotine dependence, cigarettes, uncomplicated; Z88.6 Allergy status to analgesic agent; Z88.1 Allergy status to other antibiotic agents; Z88.0 Allergy status to penicillin; Z88.2 Allergy status to sulfonamides | CPT/HCPCS: Q3014 ==

== ENCOUNTER 2020-12-07 06:30 | Outpatient (REF) | payer MEDICARE, SELFPAY ==
--- NOTE | ~2020-12-07 | FL_ITS ---
EXAMINATION: XR FLUOROSCOPY WITH IMAGES CLINICAL INFORMATION: Primary osteoarthritis right knee COMPARISON: None. TECHNIQUE: Fluoroscopy performed by Neeru Manley. Fluoroscopy time: 0.2 minutes DAP: 0.729 Gycm2 Images: 2 FINDINGS: There are needles positioned medial and lateral aspect of distal femur.. No visible fracture or dislocation seen. There is mild superior patellar spurring. FL/FL guidance in treatment room IMPRESSION: Fluoroscopy was provided to referring physician for pain management.
== END 2020-12-07 06:31 | disposition home or self-care (01) ==
LOC: HO.RADIR 06:30
PROVIDERS: Visit Provider Anesthesiology
DX: M17.11 Unilateral primary osteoarthritis, right knee (principal)
CPT/HCPCS: 64454; J3300; Q9967

== ENCOUNTER 2020-12-25 05:44 | Emergency (ER) | payer MEDICARE, SELFPAY ==
[2020-12-25 06:16] VITALS: BP 154/86; PULSE 107; RESP 20; TEMP 36.7; O2SAT 100; BMI 43.0
--- NOTE | 2020-12-25 06:56 | ED.GENADULT ---
HPI - General Adult General Chief complaint: General Medical Stated complaint: Knee pain; headache Time Seen by Provider: 12/25/20 06:41 History of Present Illness HPI narrative: Patient 45-year-old female presents today with having headache that is been ongoing since using cocaine earlier tonight. Patient has a history of snorting cocaine. Been clean for a few years. Now is having an episode of relapse. Also history of having arthritis to the right knee. Patient being follow. Any pains been ongoing for few years as well. Patient came in for further evaluation after relapsing. Denies any coughing congestion upper respiratory symptoms. Denies any diaphoresis. Denies any abdominal pain. Patient from home. No systemic complaints. Related Data Home Medications Medication Instructions Recorded Confirmed baclofen 10 mg tablet 1 tab PO TID PRN 10/15/20 12/07/20 divalproex 250 mg tablet,delayed 5 tab PO DAILY 10/15/20 12/07/20 release gabapentin 300 mg capsule 1 - 3 cap PO BEDTIME 10/15/20 12/07/20 mirtazapine 7.5 mg tablet 1 tab PO BEDTIME 10/15/20 12/07/20 acetaminophen 650 mg 1 tab PO Q6H PRN 10/20/20 12/07/20 tablet,extended release quetiapine 100 mg tablet 1 tab PO QPM 10/20/20 12/07/20 trazodone 50 mg tablet 1 tab PO BEDTIME 10/20/20 12/07/20 Previous Rx's Medication Instructions Recorded cyclobenzaprine 10 mg tablet 10 mg PO TID PRN #90 tab 05/06/20 ferrous sulfate 325 mg (65 mg 325 mg PO DAILY #90 tab 05/06/20 iron) tablet levothyroxine 25 mcg tablet 25 mcg PO DAILY #90 tab 05/06/20 lisinopril 5 mg tablet 5 mg PO DAILY #90 tab 05/06/20 paliperidone palmitate 156 mg/mL 156 mg IM QMONTH 30 Days #1 ml 08/24/20 intramuscular syringe (Invega Sustenna) prazosin 1 mg capsule 5 mg PO BEDTIME 30 Days #150 cap 08/24/20 Allergies Allergy/AdvReac Type Severity Reaction Status Date / Time hydromorphone Allergy Unknown Unknown Verified 12/07/20 07:54 insect venom [INSECT BITES] Allergy Unknown UNKNOWN Verified 12/07/20 07:54 Penicillins Allergy Unknown UNKNOWN Verified 12/07/20 07:54 sulfamethoxazole Allergy Unknown UNKNOWN Verified 12/07/20 07:54 [From BACTRIM] trimethoprim [From BACTRIM] Allergy Unknown UNKNOWN Verified 12/07/20 07:54 From DILAUDID Allergy Unknown RASH Uncoded 11/06/19 16:41 Review of Systems Review of Systems: No chest pain or shortness of breath no diaphoresis. No focal weakness. Patient from home. No new knee pain. They have pain has been ongoing for 5 years. No fever No neck pain No diaphoresis Yes all other systems are reviewed and are negative [facility] Past Medical History Attestation statement: The following information was validated with the patient. Medical History Alcohol abuse Hypertension Psychiatric diagnosis Surgical History History of ankle surgery History of cholecystectomy Social History Social History (Updated 10/04/20 @ 09:22 by Smith Pabon) Household Members: None Household Members Other:: lives by self Housing: Apartment Do you presently have visiting nurse or other home services: No Alcohol intake: unknown Patient Tobacco Use Status: Current everyday Tobacco user Tobacco use type: Cigarette e-Cigarette/Vaping Use: Currently Using Second Hand Smoke Exposure: No Advance Directives: No Advance Directives Information Provided: No service: No 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al status: employed 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 handed/ [employer] Sexual orientation: Did not discuss Physical Exam Vital Signs: Vital Signs: Last Vital Signs Temp 98.1 F 12/25/20 06:16 Pulse 107 H 12/25/20 06:16 Resp 20 12/25/20 06:16 BP 154/86 H 12/25/20 06:16 Pulse Ox 100 12/25/20 06:16 Body Mass Index 43.0 Appearance: Alert. Oriented X3. No acute distress. Eyes: Pupils equal, round and reactive to light. ENT: Pharynx normal. Neck: Normal inspection. Neck supple. No lymph nodes noted. No crepitus CVS: Normal heart rate and rhythm. Pulses normal. Normal S1 and S2 Respiratory: No respiratory distress. Breath sounds normal. No Wheezing. No rales Abdomen: Soft and nontender. No rigidity. No distention. good BS x4 Skin: Skin warm and dry. Normal skin color. Normal skin turgor. Extremities: No lower extremity edema. Neurovascular intact to all extremities. No Lacerations. No Rash. There is full range of motion at the right knee. There is no joint effusion elicited on palpation. There is no tenderness on palpation of medial and lateral collateral ligament. Ambulate with a normal gait. Distally neurovascularly intact. Neuro: Oriented X 3. No motor deficit. No sensory deficit. Moving all extermities. No slurred speech Medical Decision Making MDM Narrative Medical decision making narrative: Well-appearing no acute distress. Full range of motion at the knee. The pain is ongoing. There is no knee effusion. Ambulate with a normal gait. Patient's headache is mild frontal in nature not associated with any changes in vision. There is no focal weakness. There is no fever. No sinus suggest meningitis. Has similar headaches in the past after using cocaine. Patient will be discharged home. Tylenol given for pain. Close follow-up on an outpatient basis. Discharge Plan Discharge Clinical Impression: Knee pain, Osteoarthritis of right knee, Headache Patient Disposition: Home, Self-Care Instructions: Acute Headache (ED), Arthralgia (ED) Prescriptions: No Action cyclobenzaprine 10 mg tablet 10 mg PO TID PRN (Reason: muscle spasm) Qty: 90 RF: 3 levothyroxine 25 mcg tablet 25 mcg PO DAILY Qty: 90 RF: 3 ferrous sulfate 325 mg (65 mg iron) tablet 325 mg PO DAILY Qty: 90 RF: 3 lisinopril 5 mg tablet 5 mg PO DAILY Qty: 90 RF: 3 prazosin 1 mg Capsule 5 mg PO BEDTIME 30 Days Qty: 150 RF: 0 Invega Sustenna 156 mg/mL Syringe 156 mg IM QMONTH 30 Days Qty: 1 RF: 0 trazodone 50 mg tablet 1 tab PO BEDTIME RF: 0 quetiapine 100 mg tablet 1 tab PO QPM RF: 0 acetaminophen 650 mg tablet extended release 1 tab PO Q6H PRN (Reason: fever) RF: 0 divalproex 250 mg tablet,delayed release (DR/EC) 5 tab PO DAILY RF: 0 baclofen 10 mg tablet 1 tab PO TID PRN (Reason: muscle spasm) RF: 0 gabapentin 300 mg capsule 1 - 3 cap PO BEDTIME RF: 0 mirtazapine 7.5 mg tablet 1 tab PO BEDTIME RF: 0 Referrals: Yael Wu [Primary Care Provider] - 2 days
[2020-12-25] MEDS: Acetaminophen 325 MG TABLET 650 MG PO (07:29)
== END 2020-12-25 07:43 | disposition home or self-care (01) ==
PROVIDERS: Emergency Provider Emergency Medicine Emergency Medical Services
DX: M17.11 Unilateral primary osteoarthritis, right knee (principal); R51.9 Headache, unspecified; F17.210 Nicotine dependence, cigarettes, uncomplicated; Z71.6 Tobacco abuse counseling; Z79.899 Other long term (current) drug therapy
CPT/HCPCS: 99283

== ENCOUNTER 2020-12-28 11:59 | Inpatient (IN) | payer MEDICARE, SELFPAY ==
[2020-12-28] VITALS (18 sets, daily range): BP systolic 100–210; BP diastolic 51–120; PULSE 77–125; RESP 11–24; TEMP 36.6–39.5; O2SAT 93–100; BMI 48.8; BMI 48.4
--- NOTE | ~2020-12-28 | XR_ITS ---
EXAMINATION: XR CHEST CLINICAL INFORMATION: Rule out aspiration. COMPARISON: Chest radiograph dated from 01/22/2016. TECHNIQUE: AP view of the chest was obtained. FINDINGS: The endotracheal tube terminates at 3 cm above the aravind. There is increased hilar fullness. Otherwise, the cardiomediastinal silhouette is unchanged. There are new interstitial opacities in the left greater than right lung bases. No pleural effusion or pneumothorax. No acute osseous abnormalities. XR/XR chest 1V IMPRESSION: The endotracheal tube terminates at 3 cm above the aravind. There is central vasculature engorgement and mild interstitial prominence, more noticeable in the left lung base. These findings could reflect a combination of pulmonary edema and aspiration. An early infiltrate in the left base is difficult to exclude. Continued follow-up is recommended.
--- NOTE | ~2020-12-28 | CT_ITS ---
EXAMINATION: CT HEAD WITHOUT CONTRAST CLINICAL INFORMATION: Altered mental status. Questionable/unclear history of head trauma. COMPARISON: CT of the head done on 10/29/2011. TECHNIQUE: Contiguous axial imaging was performed from the skull base to vertex without intravenous administration of contrast. This CT examination was performed using dose optimization techniques as appropriate, variously including the following: *Automated exposure control *Adjustment of mA and/or kV according to patient size (this includes techniques or standardized protocols for targeted exams where dose is matched to indication/reason for exam; i.e. extremities or head) *Use of iterative reconstruction technique DLP: 676.6 mGy-cm FINDINGS: There is no evidence of acute intracranial hemorrhage or territorial infarction. No abnormal mass effect or midline shift is seen. Kamara to white matter differentiation is well preserved. No extra-axial fluid collections are identified. The ventricles are normal in size. Subcentimeter circumscribed oval-shaped focal area of hypodensities are noted within the basal ganglia (154 and 158:5), likely represent prominent virchow daria space and less likely to be old lacunar infarctions, unchanged since 10/29/2011. The osseous structures and soft tissues are normal. The mastoid air cells and visualized portions of the paranasal sinuses are well aerated. CT/CT head/brain wo con IMPRESSION: No acute intracranial pathology. No significant change since 10/29/2011.
--- NOTE | 2020-12-28 12:39 | ECG_ITS ---
Test Reason : substance abuse Blood Pressure : / mmHG Vent. Rate : 085 BPM Atrial Rate : 085 BPM P-R Int : 156 ms QRS Dur : 084 ms QT Int : 368 ms P-R-T Axes : 042 018 019 degrees QTc Int : 437 ms Normal sinus rhythm Possible Early repolarization Normal ECG When compared with ECG of 19-OCT-2020 16:52, No significant change was found Referred By: Neeru Aguilar Electronically Signed By:IRISH FELIX MD
--- NOTE | 2020-12-28 12:42 | ED_ITS ---
HPI - Psych General Chief Complaint: Psychiatric Symptoms Stated Complaint: CRISIS Time Seen by Provider: 12/28/20 12:33 Source: EMS Mode of arrival: EMS Limitations: altered mental status History of Present Illness HPI Narrative: Patient is brought to the emergency room by EMS. Seems that earlier today, patient called EMS. Seems that the patient punched a window earlier today. When EMS arrived to the patient's apartment, patient was dancing, screaming, yelling for Álvaro, throwing herself on the floor. When patient arrived to the emergency room, she told her triage nurse that she took 25 tablets of baclofen 10 mg each. I was told by the patient's nurse that the patient was able to microsoft exchange administrator to her clothes, patient was very altered, screaming, threw herself on the floor belly down. Got herself up. The patient requested to go to the bathroom. Patient fell asleep sitting in the toilet. The patient wakes up to sternal rub, opens her eyes and goes back to sleep. I was also informed by the patient's nurse that the patient reported that she punched a window earlier today Related Data Home Medications Medication Instructions Recorded Confirmed baclofen 10 mg tablet 1 tab PO TID PRN 10/15/20 12/28/20 divalproex 250 mg tablet,delayed 5 tab PO DAILY 10/15/20 12/28/20 release gabapentin 300 mg capsule 1 - 3 cap PO TID 10/15/20 12/28/20 trazodone 50 mg tablet 1 tab PO BEDTIME 10/20/20 12/28/20 cyclobenzaprine 10 mg tablet 1 tab PO TID PRN 12/28/20 12/28/20 omeprazole 20 mg capsule,delayed 1 cap PO DAILY 12/28/20 12/28/20 release Previous Rx's Medication Instructions Recorded ferrous sulfate 325 mg (65 mg 325 mg PO DAILY #90 tab 05/06/20 iron) tablet levothyroxine 25 mcg tablet 25 mcg PO DAILY #90 tab 05/06/20 lisinopril 5 mg tablet 5 mg PO DAILY #90 tab 05/06/20 paliperidone palmitate 156 mg/mL 156 mg IM QMONTH 30 Days #1 ml 08/24/20 intramuscular syringe (Invega Sustenna) prazosin 1 mg capsule 5 mg PO BEDTIME 30 Days #150 cap 08/24/20 Allergies Allergy/AdvReac Type Severity Reaction Status Date / Time hydromorphone Allergy Unknown Unknown Verified 12/28/20 12:36 insect venom [INSECT BITES] Allergy Unknown UNKNOWN Verified 12/28/20 12:36 Penicillins Allergy Unknown UNKNOWN Verified 12/28/20 12:36 sulfamethoxazole Allergy Unknown UNKNOWN Verified 12/28/20 12:36 [From BACTRIM] trimethoprim [From BACTRIM] Allergy Unknown UNKNOWN Verified 12/28/20 12:36 From DILAUDID Allergy Unknown RASH Uncoded 11/06/19 16:41 Review of Systems Review of Systems: Yes Unobtainable due to mental status PMFSH Past Medical History Medical History Alcohol abuse Bipolar 1 disorder, manic, moderate Hypertension Psychiatric diagnosis Surgical History History of ankle surgery History of cholecystectomy Social History Social History Household Members: None Household Members Other:: lives by self Housing: Apartment Do you presently have visiting nurse or other home services: No Alcohol intake: unknown Patient Tobacco Use Status: Current everyday Tobacco user Tobacco use type: Cigarette e-Cigarette/Vaping Use: Currently Using Second Hand Smoke Exposure: No Advance Directives: No Advance Directives Information Provided: No service: No 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al status: employed 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 handed/ [employer] Sexual orientation: Did not discuss Physical Exam Vital Signs: Vital Signs: Last Vital Signs Temp 98.3 F 12/28/20 14:07 Pulse 78 12/28/20 16:00 Resp 14 12/28/20 16:00 BP 138/80 12/28/20 16:00 Pulse Ox 97 12/28/20 16:00 Body Mass Index 48.8 Const: Other: Appearance: Sleeping, wakes up to sternal rub Eyes: Pupils equally dilated, round and reactive to light. ENT: Pharynx normal. Neck: Normal inspection. Neck supple. No lymph nodes noted. No crepitus CVS: Normal heart rate and rhythm. Pulses normal. Normal S1 and S2 Respiratory: No respiratory distress. Breath sounds normal. No Wheezing. No rales Abdomen: Soft and nontender. No rigidity. No distention. Skin: Skin warm and dry. Dry blood over her fingers, no lacerations noted Extremities: No lower extremity edema. Neuro: Very somnolent, wakes up to sternal rub, unable to assess cranial nerves Psych: On arrival to ED patient was manic, singing, screaming, threw herself on the floor. Then became very somnolent, Course Course Course Narrative: Seems the patient had an acute manic episode, unclear when it started. Baclofen overdose unknown if it was accidental versus suicide attempt. Unclear if patient had any CT of head trauma, does not seem like it, head CT pending. All labs pending. Poison Control has been contacted, patient stable. pt sleeping, bhn pending, physician obs started 14:08 If patient actually did take 250 mg of baclofen as she stated on arrival, per poison Control, patient may be somnolent and difficult to arouse for 5 days. I also discussed the patient with our pharmacist, it will take approximately bet ween 24-30 hours to start waking up. I discussed the patient with Dr. Joseph, patient will be admitted. Patient remains stable, sleeping Initially we were able to wake the patient up by sternal rubbing. However, patient no longer has a gag reflex (17:15), patient cannot protect her airway. I decided to intubate the patient. Patient remained stable. I discussed the patient with Dr. Joseph and Dr. Knox [facility] - Psych Lab Data Result diagrams: 12/28/20 13:04 12/28/20 13:04 Labs: Lab Results 12/28/20 12/28/20 12/28/20 Range/Units 13:04 13:04 13:04 WBC 12.6 H (4.8-10.8) X10*3/uL RBC 4.65 (4.20-5.50) X10*6/uL Hgb 11.2 L (12.0-16.0) g/dl Hct 36.1 L (37.0-47.0) % MCV 77.6 L (80.0-98.0) fL MCH 24.1 L (27.0-33.0) pg MCHC 31.0 (31.0-35.0) g/dl RDW 14.6 (11.0-16.0) % Plt Count 289 (160-400) X10*3/uL MPV 10.6 (9.4-12.3) fL Immature Gran % (Auto) 0.5 H (0.0-0.4) % Neut % (Auto) 81.0 H (45-73) % Lymph % (Auto) 9.9 L (20-40) % [place] % (Auto) 7.4 (2-11) % Eos % (Auto) 0.9 (0-4) % Baso % (Auto) 0.3 (0-2) % Lymph # (Auto) 1.2 (1.2-4.9) X10*3/uL [place] # (Auto) 0.9 (0.1-1.2) X10*3/uL Eos # (Auto) 0.1 (0.0-0.4) X10*3/uL Baso # (Auto) 0.0 (0.0-0.2) X10*3/uL Abs Immat Gran (auto) 0.06 H (0.00-0.03) X10*3/uL Absolute Neuts (auto) 10.2 H (2.0-8.3) x10*3/uL Absolute Nucleated RBC 0.000 (0.0-0.012) X10*3/uL Nucleated RBC % (auto) 0.0 (0.0-0.2) /100WBC PT (9.9-13.0) SEC INR (0.9-1.1) Sodium 139 (135-145) mmol/L Potassium 5.0 D (3.3-5.1) mmol/L Chloride 106 (96-108) mmol/L Carbon Dioxide 27 (22-29) mmol/L Anion Gap 11 L (12-20) BUN 8 L D (9-16) mg/dL Creatinine 0.86 (0.5-1.4) mg/dL Estim Creat Clear Calc 96.7 Estimated GFR > 60 Random Glucose 91 (60-115) mg/dL Calcium 9.1 (8.4-10.2) mg/dL Magnesium 2.2 (1.6-2.6) mg/dL Total Bilirubin 0.6 (0.0-1.0) mg/dL Direct Bilirubin 0.3 (0.0-0.5) mg/dL AST 38 H D (5-31) U/L ALT 43 H (0-31) U/L Alkaline Phosphatase 85 D (39-117) U/L Troponin I High Sens 3.9 (<3.5-17.0) ng/L Total Protein 7.2 (6.5-8.0) g/dL Albumin 4.1 (3.5-5.0) g/dL Urine Color Urine Appearance Urine pH (5.0-8.0) Ur Specific [place] (1.005-1.025) Urine Protein (NEG-TRACE) MG/DL Urine Glucose (UA) (NEG) MG/DL Urine Ketones (NEG) MG/DL Urine Blood (NEG) Urine Nitrite (NEG) Ur Leukocyte Esterase (NEG) Urine Test (NEGATIVE) Salicylates < 5.0 L (15-30) mg/dL Urine Opiates Screen (Not Detect) Urine Fentanyl Screen (Not Detect) Acetaminophen < 1 (<30) mcg/mL Ur Barbiturates Screen (Not Detect) Ur Phencyclidine Scrn (Not Detect) Ur Amphetamines Screen (Not Detect) U Benzodiazepines Scrn (Not Detect) Urine Cocaine Screen (Not Detect) U Marijuana (THC) Screen (Not Detect) Ethyl Alcohol mg/dL COVID-19 ([facility]) (Negative) COVID-19 Clin Com 12/28/20 12/28/20 12/28/20 Range/Units 13:15 13:15 13:15 WBC (4.8-10.8) X10*3/uL RBC (4.20-5.50) X10*6/uL Hgb (12.0-16.0) g/dl Hct (37.0-47.0) % MCV (80.0-98.0) fL MCH (27.0-33.0) pg MCHC (31.0-35.0) g/dl RDW (11.0-16.0) % Plt Count (160-400) X10*3/uL MPV (9.4-12.3) fL Immature Gran % (Auto) (0.0-0.4) % Neut % (Auto) (45-73) % Lymph % (Auto) (20-40) % [place] % (Auto) (2-11) % Eos % (Auto) (0-4) % Baso % (Auto) (0-2) % Lymph # (Auto) (1.2-4.9) X10*3/uL [place] # (Auto) (0.1-1.2) X10*3/uL Eos # (Auto) (0.0-0.4) X10*3/uL Baso # (Auto) (0.0-0.2) X10*3/uL Abs Immat Gran (auto) (0.00-0.03) X10*3/uL Absolute Neuts (auto) (2.0-8.3) x10*3/uL Absolute Nucleated RBC (0.0-0.012) X10*3/uL Nucleated RBC % (auto) (0.0-0.2) /100WBC PT 10.9 (9.9-13.0) SEC INR 1.0 (0.9-1.1) Sodium (135-145) mmol/L Potassium (3.3-5.1) mmol/L Chloride (96-108) mmol/L Carbon Dioxide (22-29) mmol/L Anion Gap (12-20) BUN (9-16) mg/dL Creatinine (0.5-1.4) mg/dL Estim Creat Clear Calc Estimated GFR Random Glucose (60-115) mg/dL Calcium (8.4-10.2) mg/dL Magnesium (1.6-2.6) mg/dL Total Bilirubin (0.0-1.0) mg/dL Direct Bilirubin (0.0-0.5) mg/dL AST (5-31) U/L ALT (0-31) U/L Alkaline Phosphatase (39-117) U/L Troponin I High Sens (<3.5-17.0) ng/L Total Protein (6.5-8.0) g/dL Albumin (3.5-5.0) g/dL Urine Color Urine Appearance Urine pH (5.0-8.0) Ur Specific [place] (1.005-1.025) Urine Protein (NEG-TRACE) MG/DL Urine Glucose (UA) (NEG) MG/DL Urine Ketones (NEG) MG/DL Urine Blood (NEG) Urine Nitrite (NEG) Ur Leukocyte Esterase (NEG) Urine Test (NEGATIVE) Salicylates (15-30) mg/dL Urine Opiates Screen (Not Detect) Urine Fentanyl Screen (Not Detect) Acetaminophen (<30) mcg/mL Ur Barbiturates Screen (Not Detect) Ur Phencyclidine Scrn (Not Detect) Ur Amphetamines Screen (Not Detect) U Benzodiazepines Scrn (Not Detect) Urine Cocaine Screen (Not Detect) U Marijuana (THC) Screen (Not Detect) Ethyl Alcohol < 10 mg/dL COVID-19 ([facility]) Negative (Negative) COVID-19 Clin Com See Note 12/28/20 12/28/20 12/28/20 Range/Units 14:08 14:08 14:08 WBC (4.8-10.8) X10*3/uL RBC (4.20-5.50) X10*6/uL Hgb (12.0-16.0) g/dl Hct (37.0-47.0) % MCV (80.0-98.0) fL MCH (27.0-33.0) pg MCHC (31.0-35.0) g/dl RDW (11.0-16.0) % Plt Count (160-400) X10*3/uL MPV (9.4-12.3) fL Immature Gran % (Auto) (0.0-0.4) % Neut % (Auto) (45-73) % Lymph % (Auto) (20-40) % [place] % (Auto) (2-11) % Eos % (Auto) (0-4) % Baso % (Auto) (0-2) % Lymph # (Auto) (1.2-4.9) X10*3/uL [place] # (Auto) (0.1-1.2) X10*3/uL Eos # (Auto) (0.0-0.4) X10*3/uL Baso # (Auto) (0.0-0.2) X10*3/uL Abs Immat Gran (auto) (0.00-0.03) X10*3/uL Absolute Neuts (auto) (2.0-8.3) x10*3/uL Absolute Nucleated RBC (0.0-0.012) X10*3/uL Nucleated RBC % (auto) (0.0-0.2) /100WBC PT (9.9-13.0) SEC INR (0.9-1.1) Sodium (135-145) mmol/L Potassium (3.3-5.1) mmol/L Chloride (96-108) mmol/L Carbon Dioxide (22-29) mmol/L Anion Gap (12-20) BUN (9-16) mg/dL Creatinine (0.5-1.4) mg/dL Estim Creat Clear Calc Estimated GFR Random Glucose (60-115) mg/dL Calcium (8.4-10.2) mg/dL Magnesium (1.6-2.6) mg/dL Total Bilirubin (0.0-1.0) mg/dL Direct Bilirubin (0.0-0.5) mg/dL AST (5-31) U/L ALT (0-31) U/L Alkaline Phosphatase (39-117) U/L Troponin I High Sens (<3.5-17.0) ng/L Total Protein (6.5-8.0) g/dL Albumin (3.5-5.0) g/dL Urine Color YELLOW Urine Appearance CLEAR Urine pH 6.5 (5.0-8.0) Ur Specific [place] <= 1.005 (1.005-1.025) Urine Protein NEG (NEG-TRACE) MG/DL Urine Glucose (UA) NEG (NEG) MG/DL Urine Ketones NEG (NEG) MG/DL Urine Blood NEG (NEG) Urine Nitrite NEG (NEG) Ur Leukocyte Esterase NEG (NEG) Urine Test NEGATIVE (NEGATIVE) Salicylates (15-30) mg/dL Urine Opiates Screen Not Detected (Not Detect) Urine Fentanyl Screen POSITIVE H (Not Detect) Acetaminophen (<30) mcg/mL Ur Barbiturates Screen Not Detected (Not Detect) Ur Phencyclidine Scrn Not Detected (Not Detect) Ur Amphetamines Screen Not Detected (Not Detect) U Benzodiazepines Scrn Not Detected (Not Detect) Urine Cocaine Screen POSITIVE H (Not Detect) U Marijuana (THC) Screen POSITIVE H (Not Detect) Ethyl Alcohol mg/dL COVID-19 ([facility]) (Negative) COVID-19 Clin Com Procedures Intubation Time out performed: Yes sedative: Etomidate Mg Given: 20 paralytic: Rocuronium Mg Given: 100 Laryngoscope: other (GlideScope) ET Tube Size: 7.5 ET Tube Uncuffed: No Tube Secured Depth (cm): 25 Tube Secured Location: lips Tube Placement Confirmation: visualized tube passing through cords, equal breath sounds bilaterally, no breath sounds over epigastrium and confirmation by capnometry Patient Tolerated Procedure: well Intubation Complications: none Critical Care Time Critical Care Time Critical Care Time: Yes Total Critical Care Time: 50 Attestation: 50 minutes were spent in direct patient care, stabilization and consults Discharge Plan Discharge Clinical Impression: Bipolar 1 disorder, manic, moderate, Baclofen overdose Patient Disposition: Admitted As Inpatient
[2020-12-28 13:20] LABS: MANUAL DIFF FLAG NO
[2020-12-28 13:22] LABS: Basophils Percent Auto 0.3 % (0-2); Eosinophils Absolute Auto 0.1 X10*3/uL (0.0-0.4); Eosinophils Percent Auto 0.9 % (0-4); Hematocrit 36.1 % (37.0-47.0); Hemoglobin 11.2 g/dl (12.0-16.0); Imm Gran Abs Auto 0.06 X10*3/uL (0.00-0.03); Imm Gran Pct Auto 0.5 % (0.0-0.4); Lymphocytes Absolute Auto 1.2 X10*3/uL (1.2-4.9); Lymphocytes Percent Auto 9.9 % (20-40); Mean Corpuscular Hemoglobin 24.1 pg (27.0-33.0); Mean Corpuscular Volume 77.6 fL (80.0-98.0); Mean Platelet Volume 10.6 fL (9.4-12.3); Monocytes Absolute Auto 0.9 X10*3/uL (0.1-1.2); Monocytes Percent Auto 7.4 % (2-11); Neutrophils Absolute Auto 10.2 x10*3/uL (2.0-8.3); Platelet Count 289 X10*3/uL (160-400); Red Blood Count 4.65 X10*6/uL (4.20-5.50); Red Cell Distribution Width 14.6 % (11.0-16.0); White Blood Count 12.6 X10*3/uL (4.8-10.8)
--- NOTE | 2020-12-28 13:25 | PC.NURSE ---
pt is obtunded and snoring (loud) at this time.
[2020-12-28 13:35] LABS: Prothrombin Time 10.9 SEC (9.9-13.0)
--- NOTE | 2020-12-28 13:39 | PC.NURSE ---
poison control ( [phone]) was called, this rn spoke with a male pharmacist - who refused to give out his first name stated that all the appropriate lab work and imaging were being done/drawn. aware. pharmacist staes benzo (meds) for increase agitation and seizure.
--- NOTE | 2020-12-28 13:40 | PC.NURSE ---
poison control also states that persons who overdose of baclofen medication can appear brain for up to 5 days md aware.
[2020-12-28 13:42] LABS: Alanine Aminotransferase 43 U/L (0-31); Albumin Level 4.1 g/dL (3.5-5.0); Alkaline Phosphatase 85 U/L (39-117); Anion Gap 11 (12-20); Aspartate Amino Transferase 38 U/L (5-31); Bilirubin Direct 0.3 mg/dL (0.0-0.5); Bilirubin Total 0.6 mg/dL (0.0-1.0); Blood Urea Nitrogen 8 mg/dL (9-16); Calcium 9.1 mg/dL (8.4-10.2); Carbon Dioxide 27 mmol/L (22-29); Chloride 106 mmol/L (96-108); Creatinine Clr Calc Pharmacy 96.7; Estimated Glomerular Filt Rate > 60; Glucose Random 91 mg/dL (60-115); Magnesium 2.2 mg/dL (1.6-2.6); Salicylate < 5.0 mg/dL (15-30); Sodium 139 mmol/L (135-145); Total Protein 7.2 g/dL (6.5-8.0)
[2020-12-28 13:43] LABS: Troponin-I High Sensitivity 3.9 ng/L (<3.5-17.0)
[2020-12-28 13:47] LABS: COVID-19 Test Negative (Negative); Ethanol < 10 mg/dL
[2020-12-28 13:53] LABS: Acetaminophen LAB < 1 mcg/mL (<30)
[2020-12-28 14:18] LABS: Appearance Urine CLEAR; Color Urine YELLOW; Glucose Urine UA NEG (NEG); Leukocyte Esterase Urine NEG (NEG); Nitrite Urine NEG (NEG); PH 6.5 (5.0-8.0); Specific Gravity - Urine <= 1.005 (1.005-1.025); UPreg QC Valid YES; Urine Blood NEG (NEG); Urine Ketones NEG (NEG); Urine Protein NEG (NEG-TRACE)
[2020-12-28 14:20] LABS: Urine Pregnancy NEGATIVE (NEGATIVE)
[2020-12-28 14:40] LABS: Amphetamine Screen Urine Not Detected (Not Detect); Barbiturates, Urine Not Detected (Not Detect); Benzodiazepines Screen Urine Not Detected (Not Detect); Cannabinoid Screen Urine POSITIVE (Not Detect); Cocaine Screen Urine POSITIVE (Not Detect); Fentanyl, urine POSITIVE (Not Detect); Opiate Screen Urine Not Detected (Not Detect); Phencyclidine Screen Urine Not Detected (Not Detect)
--- NOTE | 2020-12-28 15:34 | PC.NURSE ---
assumed care of pt. pt obtunded, barely responds to deep painful stimulation. capnography applied. vitals stable. sitter at bedside.
--- NOTE | 2020-12-28 16:10 | PC.NURSE ---
spoke to Craig from poison control. Updated on pt's condition including mental status, labs, and vitals. Per Craig, pt may appear brain and if that occurs and pt ends up intubed, she should have continuos EEG to make sure she is not having seizure activity d/t baclofen. Per Craig, pt to receive ativan if seizure activity/behavioral issues start.
--- NOTE | 2020-12-28 16:45 | P.HPHOSP_ITS ---
History of Present Illness Date of Service: 12/28/20 Chief Complaint: overdose History obtained from ED physician as the patient is somnolent. Per Dr Aguilar and review of the EHR, this is a 45 year-old woman with bipolar 1 disorder, chronic pain, EtOH abuse, and HTN who was brought in by EMS after she punched a window and was found to be screaming, throwing herself on the floor, and having hinduism delusions. She told the triage nurse that she took 25 tablets of baclofen 10 mg this morning. She threw herself on the floor, asked to go to the bathroom, and then fell asleep while sitting on the toilet. She was assisted to a bed in the ED where she is somnolent and arousable only to sternal rub. Poison Control was contacted and no specific therapy was recommended other than observation. She is expected to be somnolent for several days. Urine toxicology was positive for THC, fentanyl, and cocaine. Salicylate and APAP levels were negative. Serum transaminases are mildly elevated. EKG is normal. I called her daughter Dheeraj who confirmed that the patient has manic episodes. She last overdosed 2 years ago. She has had frequent psychiatric hospitalizations over the years. Delfinari reports that the patient started sleeping less a few days ago, which is usually an indication that she is beginni ng another manic episode. The patient was supposed to call [facility] but it is unclear whether she did or not. Delfinari reports the patient does abuse cocaien. Review of Systems Review of Systems: Yes Unobtainable due to mental status [facility] Medical History Alcohol abuse Bipolar 1 disorder, manic, moderate Hypertension Psychiatric diagnosis Pertinent family history: No FHx of bipolar disorder Surgical History History of ankle surgery History of cholecystectomy Social History Household Members: None Household Members Other:: lives by self Housing: Apartment Do you presently have visiting nurse or other home services: No Alcohol intake: unknown Patient Tobacco Use Status: Current everyday Tobacco user Tobacco use type: Cigarette e-Cigarette/Vaping Use: Currently Using Second Hand Smoke Exposure: No Advance Directives: No Advance Directives Information Provided: No service: No 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al status: employed 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 handed/ [employer] Sexual orientation: Did not discuss Meds Allergies Allergy/AdvReac Type Severity Reaction Status Date / Time hydromorphone Allergy Unknown Unknown Verified 12/28/20 12:36 insect venom [INSECT BITES] Allergy Unknown UNKNOWN Verified 12/28/20 12:36 Penicillins Allergy Unknown UNKNOWN Verified 12/28/20 12:36 sulfamethoxazole Allergy Unknown UNKNOWN Verified 12/28/20 12:36 [From BACTRIM] trimethoprim [From BACTRIM] Allergy Unknown UNKNOWN Verified 12/28/20 12:36 From DILAUDID Allergy Unknown RASH Uncoded 11/06/19 16:41 Active Medications: Current Medications Acetaminophen (Acetaminophen 325 Mg Tablet) 650 mg PO Q6H PRN PRN Reason: Pain, Mild (Pain Scale 1-3) Enoxaparin Sodium (Enoxaparin Sodium 40 Mg/0.4 Ml Syringe) 40 mg SUBCUT Q24H JOSE DANIEL Lactated Ringer's (Lr) 1,000 mls @ 125 mls/hr IVCONT .Q8H JOSE DANIEL Ondansetron HCl (Ondansetron Hcl 4 Mg/2 Ml Vial) 4 mg IVPUSH Q8H PRN PRN Reason: Nausea and Vomiting Pharmacy Consult (Consult Rx Perform Med Rec) 1 each MISCELLANE ONCE STA Stop: 12/28/20 16:41 Sodium Chloride (0.9 % Sodium Chloride Flush 3 Ml Syringe) 3 ml IVFLUSH QSHIFT JOSE DANIEL Home Medications Medication Instructions Recorded Confirmed Last Taken Type baclofen 10 mg tablet 1 tab PO TID PRN 10/15/20 12/07/20 Unknown History divalproex 250 mg tablet,delayed 5 tab PO DAILY 10/15/20 12/07/20 10/19/20 10:00 History release gabapentin 300 mg capsule 1 - 3 cap PO BEDTIME 10/15/20 12/07/20 Unknown History mirtazapine 7.5 mg tablet 1 tab PO BEDTIME 10/15/20 12/07/20 Unknown History acetaminophen 650 mg 1 tab PO Q6H PRN 10/20/20 12/07/20 Unknown History tablet,extended release quetiapine 100 mg tablet 1 tab PO QPM 10/20/20 12/07/20 Unknown History trazodone 50 mg tablet 1 tab PO BEDTIME 10/20/20 12/07/20 Unknown History Physical Exam Vital Signs and Narrative: Vital Signs: Last Vital Signs Temp 98.3 F 12/28/20 14:07 Pulse 78 12/28/20 16:00 Resp 14 12/28/20 16:00 BP 138/80 12/28/20 16:00 Pulse Ox 97 12/28/20 16:00 Body Mass Index 48.8 Gen: somnolent, arousable only to vigorous sternal rub, snoring respirations, normal gag HEENT: sclera anicteric, moist mucus membranes Neck: supple Lungs: clear to auscultation bilaterally Heart: regular rate and rhythm, no murmurs Abd: soft, non-tender, non-distended, obese Ext: no edema Skin: warm/well-perfused Neuro: somnolent, unable to perform neuro exam due to level of alertness Results Labs CBC and Chem 7: 12/28/20 13:04 12/28/20 13:04 Labs: Laboratory Results - last 24 hr 12/28/20 12/28/20 12/28/20 13:04 13:04 13:04 MCV 77.6 L MCH 24.1 L MCHC 31.0 RDW 14.6 Plt Count 289 MPV 10.6 Immature Gran % (Auto) 0.5 H Neut % (Auto) 81.0 H Lymph % (Auto) 9.9 L [place]att % (Auto) 7.4 Eos % (Auto) 0.9 Baso % (Auto) 0.3 Lymph # (Auto) 1.2 [place] # (Auto) 0.9 Eos # (Auto) 0.1 Baso # (Auto) 0.0 Abs Immat Gran (auto) 0.06 H Absolute Neuts (auto) 10.2 H Absolute Nucleated RBC 0.000 Nucleated RBC % (auto) 0.0 PT INR Anion Gap 11 L Estim Creat Clear Calc 96.7 Estimated GFR > 60 Random Glucose 91 Calcium 9.1 Magnesium 2.2 Total Bilirubin 0.6 Direct Bilirubin 0.3 AST 38 H D ALT 43 H Alkaline Phosphatase 85 D Troponin I High Sens 3.9 Total Protein 7.2 Albumin 4.1 Urine Color Urine Appearance Urine pH Ur Specific [place] Urine Protein Urine Glucose (UA) Urine Ketones Urine Blood Urine Nitrite Ur Leukocyte Esterase Urine Test Salicylates < 5.0 L Urine Opiates Screen Urine Fentanyl Screen Acetaminophen < 1 Ur Barbiturates Screen Ur Phencyclidine Scrn Ur Amphetamines Screen U Benzodiazepines Scrn Urine Cocaine Screen U Marijuana (THC) Screen Ethyl Alcohol COVID-19 ([facility]) COVID-19 Clin Com 12/28/20 12/28/20 12/28/20 13:15 13:15 13:15 MCV MCH MCHC RDW Plt Count MPV Immature Gran % (Auto) Neut % (Auto) Lymph % (Auto) [place] % (Auto) Eos % (Auto) Baso % (Auto) Lymph # (Auto) [place] # (Auto) Eos # (Auto) Baso # (Auto) Abs Immat Gran (auto) Absolute Neuts (auto) Absolute Nucleated RBC Nucleated RBC % (auto) PT 10.9 INR 1.0 Anion Gap Estim Creat Clear Calc Estimated GFR Random Glucose Calcium Magnesium Total Bilirubin Direct Bilirubin AST ALT Alkaline Phosphatase Troponin I High Sens Total Protein Albumin Urine Color Urine Appearance Urine pH Ur Specific [place] Urine Protein Urine Glucose (UA) Urine Ketones Urine Blood Urine Nitrite Ur Leukocyte Esterase Urine Test Salicylates Urine Opiates Screen Urine Fentanyl Screen Acetaminophen Ur Barbiturates Screen Ur Phencyclidine Scrn Ur Amphetamines Screen U Benzodiazepines Scrn Urine Cocaine Screen U Marijuana (THC) Screen Ethyl Alcohol < 10 COVID-19 ([facility]) Negative COVID-19 [employer] [employer] Com See Note 12/28/20 12/28/20 12/28/20 14:08 14:08 14:08 MCV MCH MCHC RDW Plt Count MPV Immature Gran % (Auto) Neut % (Auto) Lymph % (Auto) [place] % (Auto) Eos % (Auto) Baso % (Auto) Lymph # (Auto) [place] # (Auto) Eos # (Auto) Baso # (Auto) Abs Immat Gran (auto) Absolute Neuts (auto) Absolute Nucleated RBC Nucleated RBC % (auto) PT INR Anion Gap Estim Creat Clear Calc Estimated GFR Random Glucose Calcium Magnesium Total Bilirubin Direct Bilirubin AST ALT Alkaline Phosphatase Troponin I High Sens Total Protein Albumin Urine Color YELLOW Urine Appearance CLEAR Urine pH 6.5 Ur Specific [place] <= 1.005 Urine Protein NEG Urine Glucose (UA) NEG Urine Ketones NEG Urine Blood NEG Urine Nitrite NEG Ur Leukocyte Esterase NEG Urine Test NEGATIVE Salicylates Urine Opiates Screen Not Detected Urine Fentanyl Screen POSITIVE H Acetaminophen Ur Barbiturates Screen Not Detected Ur Phencyclidine Scrn Not Detected Ur Amphetamines Screen Not Detected U Benzodiazepines Scrn Not Detected Urine Cocaine Screen POSITIVE H U Marijuana (THC) Screen POSITIVE H Ethyl Alcohol COVID-19 ([facility]) COVID-19 Clin Com Imaging Radiologist's Impressions: Impressions Head CT 12/28/20 12:47 IMPRESSION: No acute intracranial pathology. No significant change since 10/29/2011. Assessment and Plan (1) Baclofen overdose: Status: Acute (2) Bipolar 1 disorder, manic, moderate: Status: Acute (3) Cocaine abuse: Status: Acute (4) Alcohol abuse: Status: Acute 45yo F with bipolar 1 disorder presenting with uncontrolled sonya and subsequent somnolence after reported 250 mg baclofen overdose. Treatment is supportive; there is no specific antidote. She will be admitted to [place] [facility] [place] with continuous telemetry and sitter. Will give IV fluids and she will be NPO until she is more alert. Check valproate level; she has been on this in the past, though adherence is in question. Will recheck LFTs in am and also screen for chronic HBV/HCV/HIV. Will need inpatient psychiatry admission for uncontrolled sonya and addiction medicine consults for cocaine and possibly fentanyl abuse once she is more awake. VTE prophylaxis with LMWH. She is full code. Quality Stroke Does the patient have a stroke diagnosis?: No VTE Prior VTE?: No VTE Risk Level:: Medical - moderate - high VTE Device Contraindication: N/A - Device Ordered VTE Drug Contraindication: N/A - Med Ordered
--- NOTE | 2020-12-28 16:50 | PC.NURSE ---
pt vital signs stable, wet crackles in upper airways that are new. Attempted to suction, minimal secretions noted, tongue now more obstructive, airway still patent. aware.
[2020-12-28] MEDS: Lactated Ringers 1,000 ML 125 ML IVCONT (16:56)
[2020-12-28] MEDS: Enoxaparin Sodium 40 MG/0.4 ML SYRINGE SUBCUT (16:56)
--- NOTE | 2020-12-28 17:24 | PHA.MEDREC ---
Pharmacy Consult ? Medication Reconciliation Pharmacy has completed the medication reconciliation. Patient is completely unresponsive. I spoke to daughter who has a medication list. Thanks Tammie Arevalo Pharm D
[2020-12-28 17:27] LABS: Valproate < 2.0 mcg/mL (50.0-100.0)
[2020-12-28] MEDS: Etomidate 20 MG/10 ML VIAL IVPUSH (17:30)
[2020-12-28] MEDS: Rocuronium Bromide 50 MG/5 ML VIAL 100 MG IVPUSH (17:33)
--- NOTE | 2020-12-28 17:36 | MHC.CM.PN ---
Addendum entered by Lidia Finley 12/28/20 17:45: Pt primary contact Dheeraj Maryim (daughter/alternate HCP [phone]). HCP/mother Aranza Isaisa ([phone]). HCP is on file. [employer] insurance. IMM not addressed at this time. Awaiting Provider to contact family about pt change in condition. Original Note: CM unable to met with admitted patient secondary to impending resp failure and being intubated and ventilated. CM to follow for d/c needs.
--- NOTE | 2020-12-28 17:38 | PC.NURSE ---
1725 pt with no gag reflex, per MD Aguilar, pt to be intubated at this time. Pt moved to room 4. , PA, and respiratory at bedside.
--- NOTE | 2020-12-28 17:39 | PC.NURSE ---
1731 Pt pre oxygenated with 15L nonrebreather
--- NOTE | 2020-12-28 17:39 | PC.NURSE ---
+color change, 7.5 ETT, 25@lip.
--- NOTE | 2020-12-28 18:10 | PC.NURSE ---
report taken from corby bailey pt intubated emergently d/t pt inability to protect airway. here for overdose, took approx 25 baclofen per report. poison control consulted. pt intubated, appears stable at this time, iv propofol infusing. wctm.
[2020-12-28] MEDS: propofoL 1,000 MG/100 ML VIAL 13.61 MG IVCONT (18:28)
--- NOTE | 2020-12-28 18:30 | PC.NURSE ---
pt appears to be moderately sedated, bp 210 systolically. titrated propofol to rate of 40.
[2020-12-28] MEDS: propofoL 1,000 MG/100 ML VIAL 27.22 MG IVCONT ×3 (18:52→23:48)
--- NOTE | 2020-12-28 18:56 | PC.NURSE ---
This RN rec'd report from MAJO Blackwood. Pt BP 204/117 HR 90. This RN made Dr Knox aware. Plan to increase prop from 30 mcg to 40mcg and medicate with 100mcg fentanyl bolus at this time, then reassess BP in [address] Knox at that time.
[2020-12-28] MEDS: fentaNYL citrate/PF 100 MCG/2 ML VIAL IVPUSH (19:05)
[2020-12-28] MEDS: ondansetron HCL 4 MG/2 ML VIAL IVPUSH (19:08)
[2020-12-28] MEDS: Metoprolol Tartrate 5 MG in 0.9 % Sodium Chloride 50 ML 220 MG IV (19:19)
--- NOTE | 2020-12-28 19:19 | PC.NURSE ---
This RN provided update to Dr Knox who ordered 5mg IV lopressor.
--- NOTE | 2020-12-28 20:06 | PM.CCPN ---
Subjective Subjective Date of Service: 12/28/20 Critical Care Time (minutes): 60 Comment: Patient admitted to [facility] for baclofen overdose. While patient was in the emergency department, waiting to be transferred to [facility], she became unresponsive had no gag reflex so patient was intubated and will be transferred to the ICU for management of her baclofen overdose. Poison control was called, they advised to monitor pt as she could be somnolent for up to 5 days. No further special testing is required, continuous EEG is recommended. Dr Knox agreed with assessment and plan. Physical Exam Vital Signs: Vital Signs: Last Vital Signs Temp 98.3 F 12/28/20 14:07 Pulse 82 12/28/20 19:43 Resp 15 12/28/20 19:43 BP 166/107 H 12/28/20 19:43 Pulse Ox 97 12/28/20 19:43 Body Mass Index 48.8 Const: Other: Intubated and sedated HENMT: Head: Yes normal to inspection Face and sinus: Yes normal facial exam Eyes: General: appearance normal, both eyes and all related structures Pupils: Equal, round and reactive pupils present Neck: Neck: Yes normal visual inspection and Yes full ROM Resp: Effort & Inspection: normal respiratory effort Auscultation: clear to auscultation bilaterally Cardio: Rate: regular rate Rhythm: regular rhythm Heart sounds: normal S1 and S2 GI: Inspection: Yes normal to inspection Palpation (GI): Soft to palpation and nontender Skin: General skin exam: no rashes or lesions noted Neuro: Cranial nerves: Yes Equal, round and reactive pupils present Extrem: General: Yes normal to inspection and Yes edema (trace b/l LE) Objective Data Labs CBC & Chem 7: 12/28/20 13:04 12/28/20 13:04 Labs: Laboratory Results - last 24 hr 12/28/20 12/28/20 12/28/20 13:04 13:04 13:04 WBC 12.6 H RBC 4.65 Hgb 11.2 L Hct 36.1 L MCV 77.6 L MCH 24.1 L MCHC 31.0 RDW 14.6 Plt Count 289 MPV 10.6 Immature Gran % (Auto) 0.5 H Neut % (Auto) 81.0 H Lymph % (Auto) 9.9 L Hughes % (Auto) 7.4 Eos % (Auto) 0.9 Baso % (Auto) 0.3 Lymph # (Auto) 1.2 [place] # (Auto) 0.9 Eos # (Auto) 0.1 Baso # (Auto) 0.0 Abs Immat Gran (auto) 0.06 H Absolute Neuts (auto) 10.2 H Absolute Nucleated RBC 0.000 Nucleated RBC % (auto) 0.0 PT INR Sodium 139 Potassium 5.0 D Chloride 106 Carbon Dioxide 27 Anion Gap 11 L BUN 8 L D Creatinine 0.86 Estim Creat Clear Calc 96.7 Estimated GFR > 60 Random Glucose 91 Calcium 9.1 Magnesium 2.2 Total Bilirubin 0.6 Direct Bilirubin 0.3 AST 38 H D ALT 43 H Alkaline Phosphatase 85 D Troponin I High Sens 3.9 Total Protein 7.2 Albumin 4.1 Urine Color Urine Appearance Urine pH Ur Specific [place] Urine Protein Urine Glucose (UA) Urine Ketones Urine Blood Urine Nitrite Ur Leukocyte Esterase Urine Test Salicylates < 5.0 L Urine Opiates Screen Urine Fentanyl Screen Acetaminophen < 1 Ur Barbiturates Screen Valproic Acid Ur Phencyclidine Scrn Ur Amphetamines Screen U Benzodiazepines Scrn Urine Cocaine Screen U Marijuana (THC) Screen Ethyl Alcohol COVID-19 ([facility]) COVID-19 Clin Com 12/28/20 12/28/20 12/28/20 13:15 13:15 13:15 WBC RBC Hgb Hct MCV MCH MCHC RDW Plt Count MPV Immature Gran % (Auto) Neut % (Auto) Lymph % (Auto) [place] % (Auto) Eos % (Auto) Baso % (Auto) Lymph # (Auto) [place] # (Auto) Eos # (Auto) Baso # (Auto) Abs Immat Gran (auto) Absolute Neuts (auto) Absolute Nucleated RBC Nucleated RBC % (auto) PT 10.9 INR 1.0 Sodium Potassium Chloride Carbon Dioxide Anion Gap BUN Creatinine Estim Creat Clear Calc Estimated GFR Random Glucose Calcium Magnesium Total Bilirubin Direct Bilirubin AST ALT Alkaline Phosphatase Troponin I High Sens Total Protein Albumin Urine Color Urine Appearance Urine pH Ur Specific [place] Urine Protein Urine Glucose (UA) Urine Ketones Urine Blood Urine Nitrite Ur Leukocyte Esterase Urine Test Salicylates Urine Opiates Screen Urine Fentanyl Screen Acetaminophen Ur Barbiturates Screen Valproic Acid Ur Phencyclidine Scrn Ur Amphetamines Screen U Benzodiazepines Scrn Urine Cocaine Screen U Marijuana (THC) Screen Ethyl Alcohol < 10 COVID-19 ([facility]) Negative COVID-19 Clin Com See Note 12/28/20 12/28/20 12/28/20 14:08 14:08 14:08 WBC RBC Hgb Hct MCV MCH MCHC RDW Plt Count MPV Immature Gran % (Auto) Neut % (Auto) Lymph % (Auto) [place] % (Auto) Eos % (Auto) Baso % (Auto) Lymph # (Auto) [place] # (Auto) Eos # (Auto) Baso # (Auto) Abs Immat Gran (auto) Absolute Neuts (auto) Absolute Nucleated RBC Nucleated RBC % (auto) PT INR Sodium Potassium Chloride Carbon Dioxide Anion Gap BUN Creatinine Estim Creat Clear Calc Estimated GFR Random Glucose Calcium Magnesium Total Bilirubin Direct Bilirubin AST ALT Alkaline Phosphatase Troponin I High Sens Total Protein Albumin Urine Color YELLOW Urine Appearance CLEAR Urine pH 6.5 Ur Specific [place] <= 1.005 Urine Protein NEG Urine Glucose (UA) NEG Urine Ketones NEG Urine Blood NEG Urine Nitrite NEG Ur Leukocyte Esterase NEG Urine Test NEGATIVE Salicylates Urine Opiates Screen Not Detected Urine Fentanyl Screen POSITIVE H Acetaminophen Ur Barbiturates Screen Not Detected Valproic Acid Ur Phencyclidine Scrn Not Detected Ur Amphetamines Screen Not Detected U Benzodiazepines Scrn Not Detected Urine Cocaine Screen POSITIVE H U Marijuana (THC) Screen POSITIVE H Ethyl Alcohol COVID-19 ([facility]) COVID-IPM [place] 12/28/20 16:55 WBC RBC Hgb Hct MCV MCH MCHC RDW Plt Count MPV Immature Gran % (Auto) Neut % (Auto) Lymph % (Auto) [place] % (Auto) Eos % (Auto) Baso % (Auto) Lymph # (Auto) [place] # (Auto) Eos # (Auto) Baso # (Auto) Abs Immat Gran (auto) Absolute Neuts (auto) Absolute Nucleated RBC Nucleated RBC % (auto) PT INR Sodium Potassium Chloride Carbon Dioxide Anion Gap BUN Creatinine Estim Creat Clear Calc Estimated GFR Random Glucose Calcium Magnesium Total Bilirubin Direct Bilirubin AST ALT Alkaline Phosphatase Troponin I High Sens Total Protein Albumin Urine Color Urine Appearance Urine pH Ur Specific [place] Urine Protein Urine Glucose (UA) Urine Ketones Urine Blood Urine Nitrite Ur Leukocyte Esterase Urine Test Salicylates Urine Opiates Screen Urine Fentanyl Screen Acetaminophen Ur Barbiturates Screen Valproic Acid < 2.0 L Ur Phencyclidine Scrn Ur Amphetamines Screen U Benzodiazepines Scrn Urine Cocaine Screen U Marijuana (THC) Screen Ethyl Alcohol COVID-19 ([facility]) COVID-19 Clin Com Quality Stroke Does the patient have a stroke diagnosis?: No VTE Prior VTE?: No VTE Risk Level:: Medical - moderate - high VTE Device Contraindication: N/A - Device Ordered VTE Drug Contraindication: N/A - Med Ordered Progress Note: A&P Assessment and plan (1) Cocaine abuse: Status: Acute Assessment and Plan: + cocaine on MERCHANT (2) Baclofen overdose: Status: Acute Assessment and Plan: Patient intubated and sedated, poison control recommended monitoring patient, could take up to 5 days for her to become less somnolent, watch for seizures. (3) Bipolar 1 disorder, manic, moderate: Status: Acute Assessment and Plan: Will start patient back on her divalproex as level was < 2, this will double as therapy for seizure concerns 2/2 to baclofen overdose (4) Substance abuse: Status: Acute Assessment and Plan: + fentanyl, + cocaine, + marijuana (5) Hypertension: Status: Acute Assessment and Plan: Will restart home meds, 5 mg lisinopril daily (6) Pneumonia: Status: Acute Assessment and Plan: Patient had elevated white blood cell count of 12.9, questionable aspiration on chest x-ray and copious amounts of thick white in line secretions, will treat for pneumonia with ceftriaxone. Hours later, pt spiked a fever of 103F in the ICU, ordered sputum culture as well as blood cultures (unfortunately, after abx were given as pt was afebrile at that time) and a lactic acid
--- NOTE | 2020-12-28 21:03 | MHC.CARE ---
CARE team aware of pt who is admitted to ICU s/p overdose of ~25 tabs of 10mg baclofen (muscle relaxer). She will require a crisis evaluation once medically cleared. Please consult CARE team and BHN at that time.
[2020-12-28] MEDS: Divalproex Sodium Sprinkles 125 MG CAP.DR.SPR 625 MG PO (21:12)
[2020-12-28] MEDS: lisinopriL 5 MG TABLET PO (21:12)
[2020-12-28] MEDS: Chlorhexidine Gluc Oral Rinse 15 ML MOUTHWASH BUCCAL (21:12)
[2020-12-28] MEDS: levoFLOXacin/D5W 750 MG/150 ML PIGGYBACK 100 MG IV (21:35)
[2020-12-28] MEDS: Acetaminophen 325 MG TABLET 650 MG PO (22:11)
[2020-12-28 23:01] LABS: Lactic Acid 3.3 mmol/L (0.5-2.0)
[2020-12-29] VITALS (35 sets, daily range): BP systolic 101–153; BP diastolic 56–93; PULSE 85–111; RESP 13–97; TEMP 36.4–39.6; O2SAT 93–100; BMI 48.4; BMI 49.9
[2020-12-29 00:44] LABS: Reflex Lactate? Lactic Acid Added
[2020-12-29] MEDS: Lactated Ringers 1,000 ML 125 ML IVCONT ×4 (00:46→23:18)
--- NOTE | 2020-12-29 00:55 | PC.NURSE ---
Addendum entered by Judith Thacker RN 12/29/20 06:00: At 0500 temp up to 102.5. Cooling blanket applied. Core temp in place. Original Note: Pt to icu at 2100, intubated and sedated on propofol 40 mcg/kg/min. FiO2 decreased to 30%, maintaining spO2 >97%. Tmax 103.1, po tylenol given and ice packs applied with little effect. BC and sputum cultures collected. Lactic elevated. Levaquin and IV tylenol ordered and administered. Attempted to wean propofol, unsuccessful. Pt began stacking breaths on vent, tidal volume increased to 450. Pt requires frequent inline suctioning having thick cream colored secretions. Poison control updated.?
--- NOTE | 2020-12-29 00:55 | PC.NURSE ---
Pt to icu at 2100, intubated and sedated on propofol 40 mcg/kg/hr. FiO2 decreased to 30%, maintaining spO2 >97%. Tmax 103.1, po tylenol given and ice packs applied with little effect. BC and sputum cultures collected. Lactic elevated. Levaquin and IV tylenol ordered and administered. Attempted to wean propofol, unsuccessful. Pt began stacking breaths on vent, tidal volume increased to 450. Pt requires frequent inline suctioning having thick cream colored secretions. Poison control updated.
[2020-12-29] MEDS: propofoL 1,000 MG/100 ML VIAL 34.02 MG IVCONT ×8 (02:31→23:17)
[2020-12-29] MEDS: Pantoprazole Sodium 40 MG/10 ML VIAL IVPUSH (05:17)
[2020-12-29 05:47] LABS: MANUAL DIFF FLAG NO
[2020-12-29 05:51] LABS: Basophils Percent Auto 0.2 % (0-2); Eosinophils Percent Auto 0.2 % (0-4); Hemoglobin 11.6 g/dl (12.0-16.0); Imm Gran Abs Auto 0.06 X10*3/uL (0.00-0.03); Imm Gran Pct Auto 0.4 % (0.0-0.4); Lymphocytes Absolute Auto 0.9 X10*3/uL (1.2-4.9); Lymphocytes Percent Auto 6.4 % (20-40); Mean Corpuscular HGB Conc 31.4 g/dl (31.0-35.0); Mean Corpuscular Hemoglobin 24.7 pg (27.0-33.0); Mean Corpuscular Volume 78.7 fL (80.0-98.0); Mean Platelet Volume 12.1 fL (9.4-12.3); Monocytes Absolute Auto 0.9 X10*3/uL (0.1-1.2); Monocytes Percent Auto 6.2 % (2-11); Neutrophils Absolute Auto 12.5 x10*3/uL (2.0-8.3); Neutrophils Percent Auto 86.6 % (45-73); Platelet Count 234 X10*3/uL (160-400); Red Cell Distribution Width 14.7 % (11.0-16.0); White Blood Count 14.4 X10*3/uL (4.8-10.8)
[2020-12-29 06:10] LABS: Alanine Aminotransferase 46 U/L (0-31); Albumin Level 3.8 g/dL (3.5-5.0); Alkaline Phosphatase 77 U/L (39-117); Anion Gap 11 (12-20); Aspartate Amino Transferase 37 U/L (5-31); Blood Urea Nitrogen 7 mg/dL (9-16); Calcium 8.7 mg/dL (8.4-10.2); Carbon Dioxide 28 mmol/L (22-29); Chloride 105 mmol/L (96-108); Estimated Glomerular Filt Rate > 60; Glucose Random 105 mg/dL (60-115); Potassium 4.4 mmol/L (3.3-5.1); Sodium 140 mmol/L (135-145); Total Protein 6.6 g/dL (6.5-8.0)
[2020-12-29] MEDS: Acetaminophen 325 MG TABLET 650 MG PO (08:13)
[2020-12-29] MEDS: Chlorhexidine Gluc Oral Rinse 15 ML MOUTHWASH BUCCAL ×3 (08:13→20:37)
[2020-12-29] MEDS: lisinopriL 5 MG TABLET PO (08:15)
[2020-12-29] MEDS: 0.9 % Sodium Chloride Flush 3 ML SYRINGE IVFLUSH ×2 (08:33→20:38)
--- NOTE | 2020-12-29 08:35 | MHC.CM.PN ---
pt is in the icu; intubated , vented and sedated. dc plan deferred to a future time but will likely include evaluation for inpatient psych. cm to cont. to follow.
[2020-12-29 09:33] LABS: HBS Num1 141.08 mIU/mL (0-7.99); HBsAGNum1 0.21 S/CO (0.00-0.99); HIV AB/AG Nonreactive (Nonreactive); HIV Num 1 0.04 S/CO (0.00-0.99); Hepatitis B Surface Antigen Negative (Negative); ~HepC Num1 0.11 S/CO (0.00-0.79); ~Hepatitis B Surface Antibody REACTIVE (Nonreactive); ~Hepatitis C Antibody Nonreactive (Nonreactive)
[2020-12-29] MEDS: Divalproex Sodium Sprinkles 125 MG CAP.DR.SPR 625 MG PO ×2 (09:38→20:38)
[2020-12-29 09:45] LABS: HBc Num1 0.07 S/CO (0.00-0.79); Hepatitis B Core Antibody Nonreactive (Nonreactive)
[2020-12-29] MEDS: propofoL 1,000 MG/100 ML VIAL 27.22 MG IVCONT (10:55)
--- NOTE | 2020-12-29 15:00 | PC.NURSE ---
Patient health status update given to poison control ( ). Reported patient is still intubated. Temp as high as 103.2. Patient remains on cooling blanket and Tylenol given. Reported WBC increase to 14.4 from 12.6. Current medications reviewed. Reported that no apparent seizure activity and patient remains on Depakote. Recommendation for Neuro and EEG if question of seizure activity. Relayed recommendation and update was given to
[2020-12-29] MEDS: Enoxaparin Sodium 40 MG/0.4 ML SYRINGE SUBCUT (16:30)
--- NOTE | 2020-12-29 18:27 | PM.CCPN ---
Subjective Subjective Date of Service: 12/29/20 Interval History: Ms. Esparza was admitted to ICU last night after being intubated in the ED bec of unresponsiveness. This is a 45 year-old woman with bipolar disorder.? She has had frequent psychiatric hospitalizations over the years, and had had an OD two years ago.? She also has h/o chronic pain, EtOH abuse, and HTN.? She is known to abuse cocaine. The patient was brought in by EMS after she punched a window and was found to be screaming, throwing herself on the floor, and having orthodoxy delusions. ?She told the triage nurse that she took 25 tablets of baclofen 10 mg this morning. ?In the ED, she threw herself on the floor, asked to go to the bathroom, and then fell asleep while sitting on the toilet. ?She was assisted to a bed in the ED where she was somnolent and arousable only to sternal rub. Poison Control was contacted and no specific therapy was recommended other than observation. ?They indicated that she would be expected to be somnolent for several days. Urine toxicology was positive for THC, fentanyl, and cocaine. ?Salicylate and APAP levels were negative. ?Labs were notable for mildly elevated transaminases. ?EKG was normal. The patient was admitted to Medicine.? However had approximately 17:00, patient was found more somnolent and was found to have no gag reflex.? The patient was therefore intubated, and arrangements made for admission to the ICU. In the ICU, it was noted that her valproate level was less than 2, so she was started on divalproex (part treatment, and part prophylaxis against seizures).? The patient was also hypertensive so she was started on her lisinopril that she takes at home.? The patient had elevated white blood cell count of 12.9, questionable aspiration on chest x-ray, and copious amounts of thick white in-line secretions, so she was treated for aspiration pneumonia with ceftriaxone.? Hours later, she spiked a fever of 103F.? Sputum and blood cultures were done.? Lactic acid came back at 3.3; follow-up 2 hours later came back at 1.0. Today, she?s sedated on propofol @ 50ug.? She?s easily arousable, moves all four.? HR 89, BP 129/78.? On PSV 5/21%/+5, RR is 17, Vt 500cc, Ve 8L, ETCO2 43mm, SpO2 100%.? Tmax 103.3?, now down to 100? on a cooling blanket.? PERRL, about 4mm.? No JVD at 30?.? Chest shows bilat rhonchi, normal exp phase.? Regular rate and rhythm, normal-sounding S1 and S2, with no murmur or gallops.? The abdomen is obese, and benign.? She has no extremity edema. LABORATORY DATA:? As below.? Notably, white count this morning is up slightly to 14. Renal indices are steady.? Transaminases are borderline elevated, steady. MICROBIOLOGY:? Blood cultures are negative so far at 20:00 hours.? Sputum Gram stain showed 3+ polys and a polymicrobial elian. IMAGING:? Neither a right nor a left lower lobe infiltrate can be ruled out on yesterday's chest x-ray. IMPRESSION: 1. Bipolar disorder.? We?ll continue the divalproex. 2. Baclofen overdose.? Clinical course so far is consistent with the history.? I would expect that the patient should be extubatable tomorrow, although she may remain somnolent for few more days after. 3. Toxic encephalopathy.? Secondary to above. 4. Acute respiratory failure.? Secondary to above. 5. Hypertension.? The patient has a history of hypertension, I assume essential hypertension.? For now, continue the lisinopril. ? 6. ID. Likely aspiration pneumonia, altho mild, given the normal A-a gradient.? We?ll give her a 5-day course of cephalosporin. 7. Fever.? 2? above.? No evidence of NMS. 8. No evidence of sepsis. Critical care time (including old chart review and hospital course summary): 60 min. Critical Care Time (minutes): 60 Physical Exam Vital Signs: Vital Signs: Last Vital Signs Temp 100.1 F 12/29/20 18:00 Pulse 96 12/29/20 18:00 Resp 16 12/29/20 18:00 BP 147/91 H 12/29/20 18:00 Pulse Ox 100 12/29/20 18:00 Body Mass Index 48.4 Objective Data Labs CBC & Chem 7: 12/29/20 05:26 12/29/20 05:26 Labs: Laboratory Results - last 24 hr 12/28/20 12/29/20 12/29/20 22:41 00:54 05:26 WBC RBC Hgb Hct MCV MCH MCHC RDW Plt Count MPV Immature Gran % (Auto) Neut % (Auto) Lymph % (Auto) [place] % (Auto) Eos % (Auto) Baso % (Auto) Lymph # (Auto) [place] # (Auto) Eos # (Auto) Baso # (Auto) Abs Immat Gran (auto) Absolute Neuts (auto) Absolute Nucleated RBC Nucleated RBC % (auto) Sodium Potassium Chloride Carbon Dioxide Anion Gap BUN Creatinine Estim Creat Clear Calc Estimated GFR Random Glucose Lactic Acid 3.3 H* Lactic Acid Fup @ 2Hr 1.0 Calcium Total Bilirubin AST ALT Alkaline Phosphatase Total Protein Albumin Hep Bs Antigen Negative Hep Bs Antibody REACTIVE Hep B Core Total Ab Nonreactive Hepatitis C Ab (EIA) Nonreactive HIV 1&2 Ab/P24 Ag 4thGn Nonreactive 12/29/20 12/29/20 05:26 05:26 WBC 14.4 H RBC 4.70 Hgb 11.6 L Hct 37.0 MCV 78.7 L MCH 24.7 L MCHC 31.4 RDW 14.7 Plt Count 234 MPV 12.1 Immature Gran % (Auto) 0.4 Neut % (Auto) 86.6 H Lymph % (Auto) 6.4 L [place] % (Auto) 6.2 Eos % (Auto) 0.2 Baso % (Auto) 0.2 Lymph # (Auto) 0.9 L [place] # (Auto) 0.9 Eos # (Auto) 0.0 Baso # (Auto) 0.0 Abs Immat Gran (auto) 0.06 H Absolute Neuts (auto) 12.5 H Absolute Nucleated RBC 0.000 Nucleated RBC % (auto) 0.0 Sodium 140 Potassium 4.4 Chloride 105 Carbon Dioxide 28 Anion Gap 11 L BUN 7 L Creatinine 0.87 Estim Creat Clear Calc 95.0 Estimated GFR > 60 Random Glucose 105 Lactic Acid Lactic Acid Fup @ 2Hr Calcium 8.7 Total Bilirubin 1.0 AST 37 H ALT 46 H Alkaline Phosphatase 77 Total Protein 6.6 Albumin 3.8 Hep Bs Antigen Hep Bs Antibody Hep B Core Total Ab Hepatitis C Ab (EIA) HIV 1&2 Ab/P24 Ag 4thGn Microbiology Microbiology Results: Microbiology 12/28/20 22:41 Sputum - Suctioned Gram Stain - Final Quality Stroke Does the patient have a stroke diagnosis?: No VTE Prior VTE?: No VTE Risk Level:: Medical - moderate - high VTE Device Contraindication: N/A - Device Ordered VTE Drug Contraindication: N/A - Med Ordered Critical Care Time Critical Care Time (minutes): 60
[2020-12-29] MEDS: fentaNYL citrate/PF 100 MCG/2 ML VIAL IVPUSH ×2 (20:47→23:17)
[2020-12-29] MEDS: levoFLOXacin/D5W 750 MG/150 ML PIGGYBACK 100 MG IV (22:25)
[2020-12-30] VITALS (30 sets, daily range): BP systolic 105–165; BP diastolic 59–98; PULSE 85–105; RESP 12–36; TEMP 36.6–38; O2SAT 92–100; BMI 49.1
[2020-12-30] MEDS: propofoL 1,000 MG/100 ML VIAL 34.02 MG IVCONT ×4 (01:55→09:11)
[2020-12-30] MEDS: fentaNYL citrate/PF 100 MCG/2 ML VIAL IVPUSH ×3 (02:30→08:17)
[2020-12-30] MEDS: Pantoprazole Sodium 40 MG/10 ML VIAL IVPUSH (05:24)
[2020-12-30 05:44] LABS: Hematocrit 31.8 % (37.0-47.0); Mean Corpuscular HGB Conc 31.4 g/dl (31.0-35.0); Mean Corpuscular Hemoglobin 24.4 pg (27.0-33.0); Mean Corpuscular Volume 77.8 fL (80.0-98.0); Mean Platelet Volume 10.6 fL (9.4-12.3); Platelet Count 226 X10*3/uL (160-400); Red Blood Count 4.09 X10*6/uL (4.20-5.50); Red Cell Distribution Width 14.5 % (11.0-16.0); White Blood Count 11.8 X10*3/uL (4.8-10.8)
[2020-12-30 05:44] LABS: VBG HCO3 30 mmol/L (22-26); VBG pCO2 42 mmHg; VBG pH 7.46 (7.32-7.43); VBG pO2 70 mmHg
[2020-12-30 05:47] LABS: Venous Blood Gas Refer to POC result
[2020-12-30 06:13] LABS: Anion Gap 11 (12-20); Blood Urea Nitrogen 5 mg/dL (9-16); Calcium 8.6 mg/dL (8.4-10.2); Carbon Dioxide 26 mmol/L (22-29); Chloride 106 mmol/L (96-108); Creatinine Clr Calc Pharmacy 111.3; Estimated Glomerular Filt Rate > 60; Glucose Random 93 mg/dL (60-115); Phosphorus 3.1 mg/dL (2.7-4.5); Potassium 3.9 mmol/L (3.3-5.1); Sodium 139 mmol/L (135-145); Valproate 34.7 mcg/mL (50.0-100.0)
[2020-12-30] MEDS: Lactated Ringers 1,000 ML 125 ML IVCONT ×2 (06:22→14:25)
[2020-12-30 06:26] LABS: Procalcitonin 0.07 ng/mL
[2020-12-30] MEDS: Divalproex Sodium Sprinkles 125 MG CAP.DR.SPR 625 MG PO (07:56)
[2020-12-30] MEDS: Chlorhexidine Gluc Oral Rinse 15 ML MOUTHWASH BUCCAL (07:56)
[2020-12-30] MEDS: 0.9 % Sodium Chloride Flush 3 ML SYRINGE IVFLUSH ×3 (07:56→20:17)
[2020-12-30] MEDS: lisinopriL 5 MG TABLET PO (07:56)
--- NOTE | 2020-12-30 09:27 | MHC.CLN ---
Addendum entered by Michelle Abreu RD 12/30/20 11:46: AGREE WITH PROVIDER'S ASSESSMENT BELOW Original Note: F/U PT INTUBATED AND SEDATED PT MAY BE EXTUBATED TODAY PER MD NOTE IF TUBE FEEDING NEEDED: RECOMMEND PROMOTE AT MAX GOAL RATE 25 ML/HOUR AND 30 ML PROSOURCE BID TO PROVIDE 720 KCALS (1618 KCALS WITH SEDATION), 67.5 GRAMS PROTEIN AND 503 CC FREE WATER FROM FORMULA
--- NOTE | 2020-12-30 11:14 | PM.CCPN ---
Subjective Subjective Date of Service: 12/30/20 Physical Exam Vital Signs: Vital Signs: Last Vital Signs Temp 100.4 F 12/30/20 10:00 Pulse 95 12/30/20 10:00 Resp 19 12/30/20 10:00 BP 120/79 12/30/20 10:00 Pulse Ox 96 12/30/20 10:00 Body Mass Index 49.1 Objective Data Labs CBC & Chem 7: 12/30/20 05:25 12/30/20 05:25 Labs: Laboratory Results - last 24 hr 12/30/20 12/30/20 12/30/20 05:25 05:25 05:25 WBC 11.8 H RBC 4.09 L Hgb 10.0 L Hct 31.8 L MCV 77.8 L MCH 24.4 L MCHC 31.4 RDW 14.5 Plt Count 226 MPV 10.6 Absolute Nucleated RBC 0.000 Nucleated RBC % (auto) 0.0 VBG pH VBG pCO2 VBG pO2 VBG HCO3 VBG O2 Saturation VBG Base Excess Sodium 139 Potassium 3.9 Chloride 106 Carbon Dioxide 26 Anion Gap 11 L BUN 5 L Creatinine 0.75 Estim Creat Clear Calc 111.3 Estimated GFR > 60 Random Glucose 93 Calcium 8.6 Phosphorus 3.1 Magnesium 2.0 Procalcitonin 0.07 Valproic Acid 34.7 L 12/30/20 12/30/20 05:25 05:38 WBC RBC Hgb Hct MCV MCH MCHC RDW Plt Count MPV Absolute Nucleated RBC Nucleated RBC % (auto) VBG pH Cancelled 7.46 H VBG pCO2 Cancelled 42 VBG pO2 Cancelled 70 VBG HCO3 Cancelled 30 H VBG O2 Saturation Cancelled 92.0 VBG Base Excess Cancelled 6.0 Sodium Potassium Chloride Carbon Dioxide Anion Gap BUN Creatinine Estim Creat Clear Calc Estimated GFR Random Glucose Calcium Phosphorus Magnesium Procalcitonin Valproic Acid Microbiology Microbiology Results: Microbiology 12/28/20 22:41 Sputum - Suctioned Gram Stain - Final 12/28/20 22:41 Sputum - Suctioned Sputum Culture - Preliminary Culture in progress. 12/28/20 23:30 Blood - Venous Blood Culture - Preliminary No growth after 24 hours. 12/28/20 23:30 Blood - Venous Blood Culture - Preliminary No growth after 24 hours. Quality Stroke Does the patient have a stroke diagnosis?: No VTE Prior VTE?: No VTE Risk Level:: Medical - moderate - high VTE Device Contraindication: N/A - Device Ordered VTE Drug Contraindication: N/A - Med Ordered
--- NOTE | 2020-12-30 11:15 | PC.NURSE ---
Addendum entered by Kristin Lopez RN 12/30/20 18:23: CRISIS BEDSIDE THIS EVENING - WILL BE PUTTING OUT A BED SEARCH. MULTIPLE ATTEMPTS TO REACH PATIENTS DAUGHTER PER PATIENTS REQUEST - AWAITING A CALLBACK. PATIENT REMAINS TEARFUL, BUT COOPERATIVE. SITTER REMAINS BEDSIDE FOR SAFETY. ?BITE TONGUE NOTED TO BE SLIGHTLY SWOLLEN L > R. MD BEDSIDE TO EVALUATE. PASSED SWALLOW EVALUATION. ATE < 25% OF DINNER. EPPS D/C'ED PER MD AT 1820. DTV AT 0220. WILL PASS TO ONCOMING RN. Original Note: PROPOFOL OFF AT 1038. FOLLOWING COMMANDS WITH ENCOURAGEMENT BY 1100. RT CALLED BEDSIDE TO EXTUBATE. EXTUBATED AT 1105 TO 4L NC, TITRATED DOWN TO 2L NC BY MD. CURRENT 02 = 92%. WILL CONTINUE TO MONITOR. PATIENT TEARFUL AND CRYING. STATING SHE'S SCARED. DENIES ANY FEELINGS OF SELF HARM AT THIS TIME. SITTER REMAINS BEDSIDE.
--- NOTE | 2020-12-30 15:52 | MHC.CM.PN ---
Pt extubated and on nasal canula O2: Pt remains confused at times - CM to reapproach on 12/31 for completion of D/C assessment.
[2020-12-30] MEDS: Enoxaparin Sodium 40 MG/0.4 ML SYRINGE SUBCUT (17:34)
--- NOTE | 2020-12-30 18:41 | P.PNCC_ITS ---
Subjective Subjective Date of Service: 12/30/20 Interval History: Ms. Esparza was admitted to ICU on Dec 28 after being intubated in the ED bec of unresponsiveness. This is a 45 year-old woman with bipolar disorder.? She has had frequent psychiatric hospitalizations over the years, and had an OD two years ago.? She also has h/o chronic pain, EtOH abuse, and HTN.? She is known to abuse cocaine. The patient was BIBA to the ED on Dec 28 after she punched a window and was found to be screaming, throwing herself on the floor, and having nondenominational delusions.? She told the triage nurse that she took 25 tablets of baclofen 10 mg that morning.? In the ED, she threw herself on the floor, asked to go to the bathroom, and then fell asleep while sitting on the toilet.? She was assisted to a bed in the ED where she was somnolent and arousable only to sternal rub. Poison Control was contacted and no specific therapy was recommended other than observation.? They indicated that she would be expected to be somnolent for several days. Urine toxicology was positive for THC, fentanyl, and cocaine.? Salicylate and APAP levels were negative.? Labs were notable for mildly elevated transami nases.? EKG was normal. The patient was admitted to Medicine.? However in the evening while still in the ED, she was found more somnolent and was found to have no gag reflex.? The patient was therefore intubated, and transferred to the ICU. In the ICU, it was noted that her valproate level was less than 2, so she was started on divalproex (part treatment, and part prophylaxis against seizures).? Her WBC was mildly elevated, w questionable aspiration on chest x-ray, and copious amounts of thick white in-line secretions.? So she was treated for aspir ation pneumonia with ceftriaxone.? Hours later, she spiked a fever of 103F.? Sputum and blood cultures were done.? Lactic acid came back at 3.3; follow-up two hours later came back at 1.0. Yesterday, she was sedated on propofol, but easily arousable.? On PSV 5/21%/+5, she was breathing easy with Sat up to 100%.? We left her intubated for the day. This morning, she was breathing easy on PSV 5cm with FiO2 at 28%, satting low- mid 90s. ?Central venous blood gas looked good. ?We turned the propofol off and she woke up.? She was extubated to NC without incident.? This easy, she?s breathing easy with Sat 100% on 4L NC.? Sat stayed high 90?s-100% on 2L NC, but would drop down when she sleeps.? Body and facial habitus is very suggestive of LAUREN.? HR 90s-105, BP 150-160 systolic on Lisinopril 5mg daily.? Been afebrile today.? Chest CTA on my exam, w normal exp phase.? Regular rate and rhythm, normal-sounding S1 and S2, with no murmur or gallops.? The abdomen is obese, and benign.? She has no extremity edema. LABORATORY DATA:? As below.? Notably, WBC is down to 11. Renal indices steady.? PCT negative. MICROBIOLOGY:? Blood cultures negative.? Sputum Gram stain showed 3+ polys and a polymicrobial elian, c/w aspiration. IMAGING:? Neither a right nor a left lower lobe infiltrate can be ruled out on CXR of Dec 28. IMPRESSION: 1. Bipolar disorder.? We?ll continue the divalproex that she?s on at home.? Check level tomorrow. 2. Baclofen overdose.? Clinical course so far is consistent with the history of baclofen OD.? She?s prescribed the baclofen prn.? I will not restart her on that at this time. 3. Toxic encephalopathy.? Secondary to above. 4. Acute respiratory failure.? Secondary to above.? Doing well now.? Her oxygenation is definitely not normal, but it?s not clear if that?s bec of aspiration pneumonia or bec of obesity/LAUREN.? For now, we?ll leave her on 2L NC.? If she desaturates at night, she should be given CPAP with minimal, if any, sup plemental oxygen. 5. Hypertension.? The patient has a history of hypertension, I assume essential hypertension.? For now, continue the Lisinopril and restart the Prazosin. 6. ID. Likely aspiration pneumonia, altho mild.? I?ve written her for a 5-day course of abx.? She got two days of Levaquin,? I?ll write her for three more days of ceftriaxone. 7. Fever.? 2? above.? No evidence of NMS.? She?s been afebrile today. 8. No evidence of sepsis. Stable for transfer to med-surg.? Being followed by N.? I?ll sign out to Medicine. Time:? [id number]. Critical Care Time (minutes): 0 Physical Exam Vital Signs: Vital Signs: Last Vital Signs Temp 99.3 F 12/30/20 15:00 Pulse 102 H 12/30/20 18:00 Resp 16 12/30/20 18:00 BP 165/94 H 12/30/20 18:00 Pulse Ox 100 12/30/20 18:00 Body Mass Index 49.1 Objective Data Labs CBC & Chem 7: 12/30/20 05:25 12/30/20 05:25 Labs: Laboratory Results - last 24 hr 12/30/20 12/30/20 12/30/20 05:25 05:25 05:25 WBC 11.8 H RBC 4.09 L Hgb 10.0 L Hct 31.8 L MCV 77.8 L MCH 24.4 L MCHC 31.4 RDW 14.5 Plt Count 226 MPV 10.6 Absolute Nucleated RBC 0.000 Nucleated RBC % (auto) 0.0 VBG pH VBG pCO2 VBG pO2 VBG HCO3 VBG O2 Saturation VBG Base Excess Sodium 139 Potassium 3.9 Chloride 106 Carbon Dioxide 26 Anion Gap 11 L BUN 5 L Creatinine 0.75 Estim Creat Clear Calc 111.3 Estimated GFR > 60 Random Glucose 93 Calcium 8.6 Phosphorus 3.1 Magnesium 2.0 Procalcitonin 0.07 Valproic Acid 34.7 L 12/30/20 12/30/20 05:25 05:38 WBC RBC Hgb Hct MCV MCH MCHC RDW Plt Count MPV Absolute Nucleated RBC Nucleated RBC % (auto) VBG pH Cancelled 7.46 H VBG pCO2 Cancelled 42 VBG pO2 Cancelled 70 VBG HCO3 Cancelled 30 H VBG O2 Saturation Cancelled 92.0 VBG Base Excess Cancelled 6.0 Sodium Potassium Chloride Carbon Dioxide Anion Gap BUN Creatinine Estim Creat Clear Calc Estimated GFR Random Glucose Calcium Phosphorus Magnesium Procalcitonin Valproic Acid Microbiology Microbiology Results: Microbiology 12/28/20 22:41 Sputum - Suctioned Gram Stain - Final 12/28/20 22:41 Sputum - Suctioned Sputum Culture - Preliminary Culture in progress. 12/28/20 23:30 Blood - Venous Blood Culture - Preliminary No growth after 24 hours. 12/28/20 23:30 Blood - Venous Blood Culture - Preliminary No growth after 24 hours. Quality Stroke Does the patient have a stroke diagnosis?: No VTE Prior VTE?: No VTE Risk Level:: Medical - moderate - high VTE Device Contraindication: N/A - Device Ordered VTE Drug Contraindication: N/A - Med Ordered
[2020-12-30] MEDS: traZODone HCL 50 MG TABLET PO (20:15)
[2020-12-30] MEDS: Prazosin HCL 5 MG CAPSULE PO (20:15)
[2020-12-30] MEDS: cefTRIAXone sodium 1 GM in 0.9 % Sodium Chloride 50 ML IV (20:16)
[2020-12-31] VITALS: BP 123/76; PULSE 108; RESP 20; TEMP 36.9; O2SAT 98
[2020-12-31 03:03] VITALS: BP 104/60; PULSE 90; RESP 18; TEMP 36.9; O2SAT 95
--- NOTE | 2020-12-31 06:08 | PC.NURSE ---
CARE ASSUMED 23;15...ALERT..CONVERSES...CALM AND CO-OPERATIVE..FLAT AFFECT O2 1 L/M WEANED OFF...SAO2 95-96% ROOM AIR...REPOSITIONS SELF AD-GORDON..OOB TP BEDSIDE COMMODE...VOIDED AND PASSED LARGE LOOSE BROWN STOOL...NSR/SINUS TACH HR 80'S-100'S...
[2020-12-31] MEDS: Levothyroxine Sodium 25 MCG TABLET PO (07:39)
[2020-12-31] MEDS: Ferrous Sulfate 324 MG TABLET.DR PO (07:39)
[2020-12-31] MEDS: Divalproex Sodium 250 MG TABLET.DR 1250 MG PO (07:40)
[2020-12-31 07:41] VITALS: BP 119/62; PULSE 86
[2020-12-31] MEDS: 0.9 % Sodium Chloride Flush 3 ML SYRINGE IVFLUSH (07:41)
[2020-12-31] MEDS: Omeprazole 20 MG CAPSULE.DR PO (07:41)
[2020-12-31] MEDS: lisinopriL 5 MG TABLET PO (07:41)
[2020-12-31 08:00] VITALS: BP 119/62; PULSE 93; RESP 17; TEMP 36.6; O2SAT 97
[2020-12-31 09:00] VITALS: O2SAT 96
--- NOTE | 2020-12-31 10:11 | MHC.CM.PN ---
Addendum entered by Penny Zamora 12/31/20 11:55: Pt will transfer to [facility] for continued care. Awaiting notification of readied room. Original Note: Met with pt to review d/c planning needs: pt lives alone and has a dtr close by who can assist her as needed. Pt states she is independent with all ADL's, has a vehicle and drives and does not have active MH supports in the community. Discussed transfer to inpt psych for management of depression to which pt agreed would be a reasonable plan. CM to follow for any additional needs that may arise.
--- NOTE | 2020-12-31 10:16 | P.DS_ITS ---
DS: Providers Provider Date of Service: 12/31/20 Date of admission: 12/28/20 16:36 Primary care physician: Maddie Kim MD Consults: 12/28/20 14:07 Consult to Crisis Stat Reason for consultation: bipolar, manic 12/28/20 16:45 Consult for Sitter Routine Reason for consultation: SI 12/30/20 15:03 Consult to Crisis Stat Reason for consultation: Baclofen OD Has provider been notified: No 12/31/20 07:29 Consult to Care Team Stat Comment: Reason for consultation: uncontrlled sonya, overdose. medically cleard DS: Diagnosis Discharge Diagnosis (1) Cocaine abuse: Status: Acute (2) Baclofen overdose: Status: Acute (3) Bipolar 1 disorder, manic, moderate: Status: Acute (4) Substance abuse: Status: Acute (5) Hypertension: Status: Acute (6) Pneumonia: Status: Acute DS: Summary Hospital Course Hospital Course: from my admission H+P, 12/28/20: History obtained from ED physician as the patient is somnolent.? Per Dr Aguilar and review of the EHR, this is a 45 year-old woman with bipolar 1 disorder, chronic pain, EtOH abuse, and HTN who was brought in by EMS after she punched a window and was found to be screaming, throwing herself on the floor, and having cheondoism delusions.? She told the triage nurse that she took 25 tablets of baclofen 10 mg this morning.? She threw herself on the floor, asked to go to the bathroom, and then fell asleep while sitting on the toilet.? She was assisted to a bed in the ED where she is somnolent and arousable only to sternal rub. Poison Control was contacted and no specific therapy was recommended other than observation.? She is expected to be somnolent for several days. Urine toxicology was positive for THC, fentanyl, and cocaine.? Salicylate and APAP levels were negative.? Serum transaminases are mildly elevated.? EKG is nor mal. I called her daughter Dheeraj who confirmed that the patient has manic episodes.? She last overdosed 2 years ago.? She has had frequent psychiatric hospitalizations over the years.? Dheeraj reports that the patient started sleeping less a few days ago, which is usually an indication that she is beginning another manic episode.? The patient was supposed to call [facility] but it is unclear whether she did or not.? Emari reports the patient does abuse cocaien. Unfortunately, soon after I admitted the patient, she became even more somnolent and lost her gag reflex. She was intubated emergently and admitted to the ICU under the care of Eila Knox MD. She was placed on propofol infusion. She developed fever with likely aspiration on CXR and was treated with ceftriaxone. Blood cultures were negative. Lactate normalized with treatment of the pneumonia. She was extuated on 12/30/20 without incident. She has LAUREN but is no longer on CPAP and this should be addressed as an outpatient. Valproate was continued and baclofen discontinued. She will complete her antibiotic course with cefuroxime. She was discharged to for inpatient psychiatric care for uncontrolled sonya. Time Spent with Patient Time attestation: Total time spent providing and/or coordinating discharge services:33 Discharge coordination time: Greater than 30 minutes Quality: Stroke Does the patient have a stroke diagnosis?: No Physical Exam Vital Signs: Vital Signs: Last Vital Signs Temp 97.9 F 12/31/20 08:00 Pulse 93 12/31/20 08:00 Resp 17 12/31/20 08:00 BP 119/62 12/31/20 08:00 Pulse Ox 96 12/31/20 09:00 Body Mass Index 49.1 Gen: in no acute distress HEENT: sclera anicteric, moist mucus membranes Neck: supple Lungs: clear to auscultation bilaterally Heart: regular rate and rhythm, no murmurs Abd: morbidly obese, soft, non-tender, non-distended Ext: no edema Skin: warm/well-perfused Neuro: alert and oriented x3, no focal findings Psych: restricted affect DS: Data Data Completed and Pending Completed studies during hospitalization [Text1]: Laboratory Results WBC 11.8 X10*3/uL (4.8-10.8) H 12/30/20 05:25 RBC 4.09 X10*6/uL (4.20-5.50) L 12/30/20 05:25 Hgb 10.0 g/dl (12.0-16.0) L 12/30/20 05:25 Hct 31.8 % (37.0-47.0) L 12/30/20 05:25 MCV 77.8 fL (80.0-98.0) L 12/30/20 05:25 MCH 24.4 pg (27.0-33.0) L 12/30/20 05:25 MCHC 31.4 g/dl (31.0-35.0) 12/30/20 05:25 RDW 14.5 % (11.0-16.0) 12/30/20 05:25 Plt Count 226 X10*3/uL (160-400) 12/30/20 05:25 MPV 10.6 fL (9.4-12.3) 12/30/20 05:25 Immature Gran % (Auto) 0.4 % (0.0-0.4) 12/29/20 05:26 Neut % (Auto) 86.6 % (45-73) H 12/29/20 05:26 Lymph % (Auto) 6.4 % (20-40) L 12/29/20 05:26 [place] % (Auto) 6.2 % (2-11) 12/29/20 05:26 Eos % (Auto) 0.2 % (0-4) 12/29/20 05:26 Baso % (Auto) 0.2 % (0-2) 12/29/20 05:26 Lymph # (Auto) 0.9 X10*3/uL (1.2-4.9) L 12/29/20 05:26 [place] # (Auto) 0.9 X10*3/uL (0.1-1.2) 12/29/20 05:26 Eos # (Auto) 0.0 X10*3/uL (0.0-0.4) 12/29/20 05:26 Baso # (Auto) 0.0 X10*3/uL (0.0-0.2) 12/29/20 05:26 Abs Immat Gran (auto) 0.06 X10*3/uL (0.00-0.03) H 12/29/20 05:26 Absolute Neuts (auto) 12.5 x10*3/uL (2.0-8.3) H 12/29/20 05:26 Absolute Nucleated RBC 0.000 X10*3/uL (0.0-0.012) 12/30/20 05:25 Nucleated RBC % (auto) 0.0 /100WBC (0.0-0.2) 12/30/20 05:25 PT 10.9 SEC (9.9-13.0) 12/28/20 13:15 INR 1.0 (0.9-1.1) 12/28/20 13:15 VBG pH 7.46 (7.32-7.43) H 12/30/20 05:38 VBG pCO2 42 mmHg 12/30/20 05:38 VBG pO2 70 mmHg 12/30/20 05:38 VBG HCO3 30 mmol/L (22-26) H 12/30/20 05:38 VBG O2 Saturation 92.0 % 12/30/20 05:38 VBG Base Excess 6.0 mmol/L 12/30/20 05:38 Sodium 139 mmol/L (135-145) 12/30/20 05:25 Potassium 3.9 mmol/L (3.3-5.1) 12/30/20 05:25 Chloride 106 mmol/L (96-108) 12/30/20 05:25 Carbon Dioxide 26 mmol/L (22-29) 12/30/20 05:25 Anion Gap 11 (12-20) L 12/30/20 05:25 BUN 5 mg/dL (9-16) L 12/30/20 05:25 Creatinine 0.75 mg/dL (0.5-1.4) 12/30/20 05:25 Estim Creat Clear Calc 111.3 12/30/20 05:25 Estimated GFR > 60 12/30/20 05:25 Random Glucose 93 mg/dL (60-115) 12/30/20 05:25 Lactic Acid 3.3 mmol/L (0.5-2.0) H* 12/28/20 22:41 Lactic Acid Fup @ 2Hr 1.0 mmol/L (0.5-2.0) 12/29/20 00:54 Calcium 8.6 mg/dL (8.4-10.2) 12/30/20 05:25 Phosphorus 3.1 mg/dL (2.7-4.5) 12/30/20 05:25 Magnesium 2.0 mg/dL (1.6-2.6) 12/30/20 05:25 Total Bilirubin 1.0 mg/dL (0.0-1.0) 12/29/20 05:26 Direct Bilirubin 0.3 mg/dL (0.0-0.5) 12/28/20 13:04 AST 37 U/L (5-31) H 12/29/20 05:26 ALT 46 U/L (0-31) H 12/29/20 05:26 Alkaline Phosphatase 77 U/L (39-117) 12/29/20 05:26 Troponin I High Sens 3.9 ng/L (<3.5-17.0) 12/28/20 13:04 Total Protein 6.6 g/dL (6.5-8.0) 12/29/20 05:26 Albumin 3.8 g/dL (3.5-5.0) 12/29/20 05:26 Procalcitonin 0.07 ng/mL 12/30/20 05:25 Urine Color YELLOW 12/28/20 14:08 Urine Appearance CLEAR 12/28/20 14:08 Urine pH 6.5 (5.0-8.0) 12/28/20 14:08 Ur Specific [place] <= 1.005 (1.005-1.025) 12/28/20 14:08 Urine Protein NEG MG/DL (NEG-TRACE) 12/28/20 14:08 Urine Glucose (UA) NEG MG/DL (NEG) 12/28/20 14:08 Urine Ketones NEG MG/DL (NEG) 12/28/20 14:08 Urine Blood NEG (NEG) 12/28/20 14:08 Urine Nitrite NEG (NEG) 12/28/20 14:08 Ur Leukocyte Esterase NEG (NEG) 12/28/20 14:08 Urine Test NEGATIVE (NEGATIVE) 12/28/20 14:08 Salicylates < 5.0 mg/dL (15-30) L 12/28/20 13:04 Urine Opiates Screen Not Detected (Not Detect) 12/28/20 14:08 Urine Fentanyl Screen POSITIVE (Not Detect) H 12/28/20 14:08 Acetaminophen < 1 mcg/mL (<30) 12/28/20 13:04 Ur Barbiturates Screen Not Detected (Not Detect) 12/28/20 14:08 Valproic Acid 34.7 mcg/mL (50.0-100.0) L 12/30/20 05:25 Ur Phencyclidine Scrn Not Detected (Not Detect) 12/28/20 14:08 Ur Amphetamines Screen Not Detected (Not Detect) 12/28/20 14:08 U Benzodiazepines Scrn Not Detected (Not Detect) 12/28/20 14:08 Urine Cocaine Screen POSITIVE (Not Detect) H 12/28/20 14:08 U Marijuana (THC) Screen POSITIVE (Not Detect) H 12/28/20 14:08 Ethyl Alcohol < 10 mg/dL 12/28/20 13:15 COVID-19 ([facility]) Negative (Negative) 12/28/20 13:15 COVID-19 Clin Com See Note 12/28/20 13:15 Hep Bs Antigen Negative (Negative) 12/29/20 05:26 Hep Bs Antibody REACTIVE (Nonreactive) 12/29/20 05:26 Hep B Core Total Ab Nonreactive (Nonreactive) 12/29/20 05:26 Hepatitis C Ab (EIA) Nonreactive (Nonreactive) 12/29/20 05:26 HIV 1&2 Ab/P24 Ag 4thGn Nonreactive (Nonreactive) 12/29/20 05:[address] 12/28/20 12:47 IMPRESSION: No acute intracranial pathology. No significant change since 10/29/2011. Chest X-Ray 12/28/20 17:08 IMPRESSION: The endotracheal tube terminates at 3 cm above the aravind. There is central vasculature engorgement and mild interstitial prominence, more noticeable in the left lung base. These findings could reflect a combination of pulmonary edema and aspiration. An early infiltrate in the left base is difficult to exclude. Continued follow-up is recommended. Discharge Plan Discharge Disposition: Xfer Psychiatric Hosp Referrals: Psychiatry,[facility] [place] [Physician] - 1 Week Maddie Kim MD [Primary Care Provider] - 1 Week Discharge Medications: New cefuroxime axetil 500 mg Tablet 500 mg PO Q12H Qty: 3 RF: 0 Continued levothyroxine 25 mcg tablet 25 mcg PO DAILY Qty: 90 RF: 3 ferrous sulfate 325 mg (65 mg iron) tablet 325 mg PO DAILY Qty: 90 RF: 3 lisinopril 5 mg tablet 5 mg PO DAILY Qty: 90 RF: 3 prazosin 1 mg Capsule 5 mg PO BEDTIME 30 Days Qty: 150 RF: 0 trazodone 50 mg tablet 1 tab PO BEDTIME RF: 0 divalproex 250 mg tablet,delayed release (DR/EC) 5 tab PO DAILY RF: 0 omeprazole 20 mg capsule,delayed release(DR/EC) 1 cap PO DAILY RF: 0 cyclobenzaprine 10 mg tablet 1 tab PO TID PRN (Reason: muscle spasm) RF: 0 Discontinued Invega Sustenna 156 mg/mL Syringe 156 mg IM QMONTH 30 Days Qty: 1 RF: 0 baclofen 10 mg tablet 1 tab PO TID PRN (Reason: muscle spasm) RF: 0 gabapentin 300 mg capsule 1 - 3 cap PO TID RF: 0 Forms: Patient Portal Discharge page Care Plan Goals: mental health Health Concerns: uncontrolled sonya, overdose, pneumonia Plan of Treatment: to M5 d/c baclofen take cefuroxime 500 mg bid x 3 doses Assessment: See Discharge Summary Patient Instructions: Bipolar Disorder (DC)
== END 2020-12-31 12:48 | DRG 917 ==
LOC: HO.ED 15:34 → HO.EDOVER 19:14 → HO.ICU 19:18
PROVIDERS: Anesthesiology; Physician Assistant; Admitting Provider Family Medicine; Emergency Provider Emergency Medicine; PCP General Practice; Visit Provider Family Medicine
DX: T42.8X2A Poisoning by antiparkinsonism drugs and other central muscle-tone depressants, intentional self-harm, initial encounter (principal); G92.8 Other toxic encephalopathy; J96.01 Acute respiratory failure with hypoxia; J69.0 Pneumonitis due to inhalation of food and vomit; F31.12 Bipolar disorder, current episode manic without psychotic features, moderate; Y92.009 Unspecified place in unspecified non-institutional (private) residence as the place of occurrence of the external cause; I10 Essential (primary) hypertension; F10.10 Alcohol abuse, uncomplicated; F14.10 Cocaine abuse, uncomplicated; F17.210 Nicotine dependence, cigarettes, uncomplicated; Z71.6 Tobacco abuse counseling; Z20.822 Contact with and (suspected) exposure to COVID-19; Z88.0 Allergy status to penicillin; Z88.2 Allergy status to sulfonamides; Z79.890 Hormone replacement therapy; Z79.899 Other long term (current) drug therapy
CPT/HCPCS: 36415; 70450; 71045; 80048; 80053; 80076; 80143; 80164; 80179; 80307; 81003; 81025; 82077; 82803; 83605; 83735; 84100; 84145; 84484; 85025; 85027; 85610; 86704; 86706; 86803; 87040; 87070; 87077; 87185; 87205; 87340; 87389; 87635; 93005; 94002; 94003; 96374; 99285; 99291; J0131; J0696; J1650; J1956; J2405; J3010

== ENCOUNTER 2020-12-31 12:55 | Inpatient (IN) | payer MEDICARE, SELFPAY ==
[2020-12-31 17:06] VITALS: BMI 49.1
[2020-12-31 20:15] VITALS: BP 132/84; PULSE 89; TEMP 36.6
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
[2020-12-31] MEDS: traZODone HCL 50 MG TABLET PO (20:28)
[2020-12-31 20:29] VITALS: BP 132/84; PULSE 89
[2020-12-31] MEDS: Prazosin HCL 5 MG CAPSULE PO (20:29)
--- NOTE | 2020-12-31 21:27 | PC.NURSE ---
Pt signed a 3-day notice of intent to revoke conditional voluntary admission shortly after being admitted.
--- NOTE | 2020-12-31 23:59 | PC.ADMIT ---
Addendum entered by Ethan Parks RN 01/01/21 00:21: Pt was admitted from the ICU where she was intubated. Original Note: A 45 year old single female was admitted to the [facility] as a CV at 1325 following referral from [facility] and [facility]. Pt was most recently admitted to in July of this year. Pt has psychiatric hospitalizations elsewhere. Pt reports previous hospitalization for substances. Pt was transported to [facility] via ambulance on 12/28/20 following intentional ingestion of 25 baclofen 10mg tablets. Pt reported to this proposal writer that she had loaned her 2016 [employer] to a friend who had not returned the car, that this had caused her to intentionally O/D. Pt stated it is still a primary concern for her to find her car; pt said that was why she wants to leave [facility] and has signed a 3-day notice. When pt arrived in the ED her mental status was very altered and EMS reported that pt was dancing and screaming & yelling for Álvaro at her home. Pt was screaming and throwing self to the floor in ED. Pt was calm and cooperative during admission, but tired. Pt reports poor sleep with nightmares, difficulty falling asleep and frequent awakening. Pt reports trauma history, but says no formal diagnosis of PTSD. Pt reports has been taking medications as ordered. MERCHANT was positive for fentanyl, cocaine, marijuana; pt denies using Etoh. Medical issues include: HTN, gastric ulcer, herniated discs, chronic pain, migraines, GERD, osteoarthritis in knees, back. Pt is resting in room at this time on 15 minute safety checks. [id number] done, -toSilke done. Treatment plan and safety tool done.
[2021-01-01 06:00] VITALS: BP 150/75; PULSE 76; RESP 18; TEMP 36.8; O2SAT 98
[2021-01-01] MEDS: Levothyroxine Sodium 25 MCG TABLET PO (06:41)
[2021-01-01] MEDS: Omeprazole 20 MG CAPSULE.DR PO (06:41)
[2021-01-01] MEDS: Nystatin Oral Susp 500,000 UNIT/5 ML ORAL.SUSP 400000 UNIT PO (09:07)
[2021-01-01] MEDS: Divalproex Sodium 250 MG TABLET.DR 1250 MG PO (09:08)
[2021-01-01] MEDS: lisinopriL 5 MG TABLET PO (09:08)
[2021-01-01] MEDS: Acyclovir 200 MG CAPSULE 400 MG PO ×3 (09:08→19:50)
[2021-01-01] MEDS: Ferrous Sulfate 324 MG TABLET.DR PO (09:08)
[2021-01-01] MEDS: Nicotine 21 MG PATCH.TD24 TRANSDERMA (09:14)
[2021-01-01] MEDS: Acetaminophen 325 MG TABLET 650 MG PO ×3 (09:33→23:46)
--- NOTE | 2021-01-01 09:54 | HO.PSYCHPN ---
Subjective Subjective Date of Service: 01/01/21 Reason For Visit: baclofen overdose Subjective Notes: Conditional Voluntary Interim History: Patient was seen and discussed on rounds. Records and treatment plan reviewed. Labs were reviewed. She has been doing better and has settled and. She has been having problems and discomfort from thrush. Nystatin has been ordered by increased it to a full pack each dose of 500,000. No other complaints. One episode of incontinence reported. No other changes were made. He is eating and sleeping adequately. No active I reported Review of Systems Review of Systems Review of systems is negative by system except for mouth and tongue discomfort secondary to thrush. Mental Status Exam Mental Status Exam Narrative: In today's visit she is alert, oriented and pleasant. Normal speech. Good eye contact. Affect is appropriate and varied. No overt signs of depression. No signs of psychosis. No active SI or HI. Cognitively intact. Judgment is intact Diagnostics Vital Signs (24Hr): Vital Signs - 24 hr 12/31/20 20:15 12/31/20 20:29 01/01/21 06:00 Temperature 97.8 F 98.3 F Pulse Rate 89 89 76 Respiratory Rate 18 Blood Pressure 132/84 132/84 150/75 H Pulse Oximetry 98 Body Mass Index 49.1 Medications Medications Current Medications Acetaminophen (Acetaminophen 325 Mg Tablet) 650 mg PO Q6H PRN PRN Reason: Pain, Mild (Pain Scale 1-3) Last Admin: 01/01/21 09:33 Dose: 650 mg Documented by: Acyclovir (Acyclovir 200 Mg Capsule) 400 mg PO TID [facility] Last Admin: 01/01/21 09:08 Dose: 400 mg Documented by: Al Hydroxide/Mg Hydroxide (Magnesium Hydrox/Alum Hydrox 30 Ml Oral.Susp) 30 ml PO Q6H PRN PRN Reason: Heartburn/Nausea Benzocaine (Throat Lozenge, Medicated Lozenge) 1 lozenge MUCOUS MEM Q2H PRN PRN Reason: Sore Throat Cefuroxime Axetil (Cefuroxime Axetil 500 Mg Tablet) 500 mg PO Q12H [facility] Stop: 01/01/21 21:01 Last Admin: 01/01/21 09:08 Dose: 500 mg Documented by: Divalproex Sodium (Divalproex Sodium 250 Mg Tablet.) 1,250 mg PO DAILY [facility] Last Admin: 01/01/21 09:08 Dose: 1,250 mg Documented by: Ferrous Sulfate (Ferrous Sulfate 324 Mg Tablet.) 324 mg PO DAILY [facility] Last Admin: 01/01/21 09:08 Dose: 324 mg Documented by: Levothyroxine Sodium (Levothyroxine Sodium 25 Mcg Tablet) 25 mcg PO DAILY@0600 [facility] Last Admin: 01/01/21 06:41 Dose: 25 mcg Documented by: Lisinopril (Lisinopril 5 Mg Tablet) 5 mg PO DAILY [facility]; Protocol Last Admin: 01/01/21 09:08 Dose: 5 mg Documented by: Magnesium Hydroxide (Milk Of Magnesia 30 Ml Oral.Susp) 30 ml PO DAILY PRN PRN Reason: Constipation Nicotine (Nicotine 21 Mg Patch.Td24) 21 mg TRANSDERMA DAILY [facility] Last Admin: 01/01/21 09:14 Dose: 21 mg Documented by: Nicotine Polacrilex (Nicotine Polacrilex 2 Mg Gum) 4 mg BUCCAL Q2H PRN PRN Reason: Nicotine Cravings Nystatin (Nystatin Oral Susp 500,000 Unit/5 Ml Oral.Susp) 400,000 unit PO QID [facility] Last Admin: 01/01/21 09:07 Dose: 400,000 unit Documented by: Omeprazole (Omeprazole 20 Mg Capsule.) 20 mg PO DAILY@0630 [facility] Last Admin: 01/01/21 06:41 Dose: 20 mg Documented by: Prazosin HCl (Prazosin Hcl 5 Mg Capsule) 5 mg PO BEDTIME [facility]; Protocol Last Admin: 12/31/20 20:29 Dose: 5 mg Documented by: Trazodone HCl (Trazodone Hcl 50 Mg Tablet) 50 mg PO BEDTIME [facility] Last Admin: 12/31/20 20:28 Dose: 50 mg Documented by: Allergies Allergies Allergy/AdvReac Type Severity Reaction Status Date / Time hydromorphone Allergy Unknown Unknown Verified 12/28/20 12:36 insect venom [INSECT BITES] Allergy Unknown UNKNOWN Verified 12/28/20 12:36 Penicillins Allergy Unknown UNKNOWN Verified 12/28/20 12:36 sulfamethoxazole Allergy Unknown UNKNOWN Verified 12/28/20 12:36 [From BACTRIM] trimethoprim [From BACTRIM] Allergy Unknown UNKNOWN Verified 12/28/20 12:36 From DILAUDID Allergy Unknown RASH Uncoded 11/06/19 16:41 Assessment & Plan Assessment & Plan (1) Bipolar 1 disorder, manic, moderate: Status: Acute Code(s): F31.12 - Bipolar disorder, current episode manic without psychotic features, moderate (2) Cocaine use disorder: Status: Acute Code(s): F14.10 - Cocaine abuse, uncomplicated Assessment and Plan: Pt is known to [facility] M[facility], prev IPLOC 07/2020. She has hx of manic episodes with sx of hyposomnia and impulsivity. Has numerous psychosocial stressors and recent relapse on cocaine, perocet. Presented to ED due to out of control behaviors at home in context of substance use and OD on baclofen. Hx of SA by OD. Pt currently on VPA and prazosin, does not want med changes. VPA L subtherapeutic despite pt reporting good adherence, may obtain updated level. Will order acyclovir, nystatin, nicotine patch, cepacol to address numerous somatic complaints. Monitor response to medications. Monitor for safety in the milieu. Discharge on stabilization. Patient seen. Chart reviewed. Discussed with team. Obtain collateral contact info?as needed I spent minutes with the patient and/or on the patient floor today, greater than?50% of which was spent counseling/coordinating care. Reason for contiued inpatient stay Substantial Risk for: harm to self
[2021-01-01] MEDS: Loperamide HCl 2 MG CAPSULE PO ×2 (11:59→17:00)
[2021-01-01] MEDS: Nystatin Oral Susp 500,000 UNIT/5 ML ORAL.SUSP 500000 UNIT PO ×3 (13:00→19:50)
[2021-01-01] MEDS: Gabapentin 100 MG CAPSULE PO ×2 (14:03→19:51)
[2021-01-01] MEDS: Nicotine Polacrilex 2 MG GUM 4 MG BUCCAL ×4 (15:56→23:47)
[2021-01-01] MEDS: Throat Lozenge, Medicated LOZENGE 1 LOZENGE MUCOUS MEM ×2 (17:57→23:47)
[2021-01-01 21:31] VITALS: BP 134/91; PULSE 103
[2021-01-01] MEDS: Prazosin HCL 5 MG CAPSULE PO (21:31)
[2021-01-01] MEDS: traZODone HCL 50 MG TABLET PO (21:31)
[2021-01-02] MEDS: Loperamide HCl 2 MG CAPSULE PO (00:07)
[2021-01-02] MEDS: Throat Lozenge, Medicated LOZENGE 1 LOZENGE MUCOUS MEM ×5 (04:26→22:11)
[2021-01-02] MEDS: Nicotine Polacrilex 2 MG GUM 4 MG BUCCAL ×6 (04:52→22:03)
[2021-01-02] MEDS: Levothyroxine Sodium 25 MCG TABLET PO (05:25)
[2021-01-02] MEDS: Omeprazole 20 MG CAPSULE.DR PO (05:25)
[2021-01-02] MEDS: Acetaminophen 325 MG TABLET 650 MG PO ×2 (05:26→17:09)
[2021-01-02 06:00] VITALS: BP 133/81; PULSE 88; TEMP 36.4; O2SAT 98
[2021-01-02 06:57] VITALS: BP 133/81; PULSE 76; TEMP 36.4; O2SAT 98
--- NOTE | 2021-01-02 08:28 | P.PNPSI_ITS ---
Subjective Subjective Date of Service: 01/02/21 Reason For Visit: baclofen overdose Subjective Notes: Conditional Voluntary Interim History: Patient was seen and discussed in rounds today. Records reviewed. She is complaining of a sore on the upper right lip. She is already on acyclovir. She is doing better and denies any cravings. No signs of withdrawals. She is in her room a lot. Eating and sleeping adequately. Blood pressure was a little high yesterday but who was lower after medications. Eating and sleeping adequately. No changes were made today Review of Systems Review of Systems Positive for sore on the upper lip Yes all other systems are reviewed and are negative Mental Status Exam Mental Status Exam Narrative: In today's visit she is alert, oriented and pleasant. Normal speech. Good eye contact. Affect is appropriate and varied. No acute signs observed. No suicidal ideations upon inquiry. Cognitively intact. Judgment is intact Diagnostics Vital Signs (24Hr): Vital Signs - 24 hr 01/01/21 21:31 01/02/21 06:00 01/02/21 06:57 Temperature 97.6 F 97.6 F Pulse Rate 103 H 88 76 Blood Pressure 134/91 H 133/81 133/81 Pulse Oximetry 98 98 Body Mass Index 49.1 Medications Medications Current Medications Acetaminophen (Acetaminophen 325 Mg Tablet) 650 mg PO Q6H PRN PRN Reason: Pain, Mild (Pain Scale 1-3) Last Admin: 01/02/21 05:26 Dose: 650 mg Documented by: Acyclovir (Acyclovir 200 Mg Capsule) 400 mg PO TID [facility] Last Admin: 01/01/21 19:50 Dose: 400 mg Documented by: Al Hydroxide/Mg Hydroxide (Magnesium Hydrox/Alum Hydrox 30 Ml Oral.Susp) 30 ml PO Q6H PRN PRN Reason: Heartburn/Nausea Benzocaine (Throat Lozenge, Medicated Lozenge) 1 lozenge MUCOUS MEM Q2H PRN PRN Reason: Sore Throat Last Admin: 01/02/21 04:26 Dose: 1 lozenge Documented by: Benzocaine (Throat Lozenge, Medicated Lozenge) 1 lozenge MUCOUS MEM Q2H PRN PRN Reason: Sore Throat Divalproex Sodium (Divalproex Sodium 250 Mg Tablet.) 1,250 mg PO DAILY [facility] Last Admin: 01/01/21 09:08 Dose: 1,250 mg Documented by: Ferrous Sulfate (Ferrous Sulfate 324 Mg Tablet.) 324 mg PO DAILY [facility] Last Admin: 01/01/21 09:08 Dose: 324 mg Documented by: Gabapentin (Gabapentin 100 Mg Capsule) 100 mg PO TID [facility] Last Admin: 01/01/21 19:51 Dose: 100 mg Documented by: Levothyroxine Sodium (Levothyroxine Sodium 25 Mcg Tablet) 25 mcg PO DAILY@0600 [facility] Last Admin: 01/02/21 05:25 Dose: 25 mcg Documented by: Lisinopril (Lisinopril 5 Mg Tablet) 5 mg PO DAILY [facility]; Protocol Last Admin: 01/01/21 09:08 Dose: 5 mg Documented by: Loperamide HCl (Loperamide Hcl 2 Mg Capsule) 2 mg PO Q4H PRN PRN Reason: Diarrhea Last Admin: 01/02/21 00:07 Dose: 2 mg Documented by: Magnesium Hydroxide (Milk Of Magnesia 30 Ml Oral.Susp) 30 ml PO DAILY PRN PRN Reason: Constipation Nicotine (Nicotine 21 Mg Patch.Td24) 21 mg TRANSDERMA DAILY [facility] Last Admin: 01/01/21 09:14 Dose: 21 mg Documented by: Nicotine Polacrilex (Nicotine Polacrilex 2 Mg Gum) 4 mg BUCCAL Q2H PRN PRN Reason: Nicotine Cravings Last Admin: 01/02/21 04:52 Dose: 4 mg Documented by: Nystatin (Nystatin Oral Susp 500,000 Unit/5 Ml Oral.Susp) 500,000 unit PO QID [facility] Last Admin: 01/01/21 19:50 Dose: 500,000 unit Documented by: Omeprazole (Omeprazole 20 Mg Capsule.) 20 mg PO DAILY@0630 [facility] Last Admin: 01/02/21 05:25 Dose: 20 mg Documented by: Prazosin HCl (Prazosin Hcl 5 Mg Capsule) 5 mg PO BEDTIME [facility]; Protocol Last Admin: 01/01/21 21:31 Dose: 5 mg Documented by: Trazodone HCl (Trazodone Hcl 50 Mg Tablet) 50 mg PO BEDTIME [facility] Last Admin: 01/01/21 21:31 Dose: 50 mg Documented by: Allergies Allergies Allergy/AdvReac Type Severity Reaction Status Date / Time hydromorphone Allergy Unknown Unknown Verified 12/28/20 12:36 insect venom [INSECT BITES] Allergy Unknown UNKNOWN Verified 12/28/20 12:36 Penicillins Allergy Unknown UNKNOWN Verified 12/28/20 12:36 sulfamethoxazole Allergy Unknown UNKNOWN Verified 12/28/20 12:36 [From BACTRIM] trimethoprim [From BACTRIM] Allergy Unknown UNKNOWN Verified 12/28/20 12:36 From DILAUDID Allergy Unknown RASH Uncoded 11/06/19 16:41 Assessment & Plan Assessment & Plan (1) Bipolar 1 disorder, manic, moderate: Status: Acute Code(s): F31.12 - Bipolar disorder, current episode manic without psychotic features, moderate (2) Cocaine use disorder: Status: Acute Code(s): F14.10 - Cocaine abuse, uncomplicated Assessment and Plan: Pt is known to [facility], prev IPLOC 07/2020. She has hx of manic episodes with sx of hyposomnia and impulsivity. Has numerous psychosocial stressors and recent relapse on cocaine, perocet. Presented to ED due to out of control behaviors at home in context of substance use and OD on baclofen. Hx of SA by OD. Pt currently on VPA and prazosin, does not want med changes. VPA L subtherapeutic despite pt reporting good adherence, may obtain updated level. Will order acyclovir, nystatin, nicotine patch, cepacol to address numerous somatic complaints. Monitor response to medications. Monitor for safety in the milieu. Discharge on stabilization. Patient seen. Chart reviewed. Discussed with team. Obtain collateral contact info?as needed 01/02/2021 continue current regimen and plans I spent minutes with the patient and/or on the patient floor today, greater than?50% of which was spent counseling/coordinating care. Reason for contiued inpatient stay Substantial Risk for: other
[2021-01-02] MEDS: Nicotine 21 MG PATCH.TD24 TRANSDERMA (08:36)
[2021-01-02] MEDS: Divalproex Sodium 250 MG TABLET.DR 1250 MG PO (08:36)
[2021-01-02] MEDS: Nystatin Oral Susp 500,000 UNIT/5 ML ORAL.SUSP 500000 UNIT PO ×4 (08:36→20:04)
[2021-01-02] MEDS: Ferrous Sulfate 324 MG TABLET.DR PO (08:37)
[2021-01-02] MEDS: Gabapentin 100 MG CAPSULE PO ×3 (08:37→20:01)
[2021-01-02] MEDS: lisinopriL 5 MG TABLET PO (08:37)
[2021-01-02] MEDS: Acyclovir 200 MG CAPSULE 400 MG PO ×3 (08:37→20:01)
[2021-01-02] MEDS: Milk of Magnesia 30 ML ORAL.SUSP PO (14:06)
[2021-01-02 16:40] VITALS: BP 136/96; PULSE 82; TEMP 36.7
[2021-01-02 20:00] VITALS: BP 111/79; PULSE 87; TEMP 36.6
[2021-01-02 20:01] VITALS: BP 111/79; PULSE 87
[2021-01-02] MEDS: Prazosin HCL 5 MG CAPSULE PO (20:01)
[2021-01-02] MEDS: traZODone HCL 50 MG TABLET PO (20:01)
[2021-01-02] MEDS: Ibuprofen 600 MG TABLET PO (20:33)
[2021-01-03] MEDS: Acetaminophen 325 MG TABLET 650 MG PO (00:40)
[2021-01-03] MEDS: Throat Lozenge, Medicated LOZENGE 1 LOZENGE MUCOUS MEM ×6 (05:06→22:40)
[2021-01-03] MEDS: Nicotine Polacrilex 2 MG GUM 4 MG BUCCAL ×6 (05:07→22:40)
[2021-01-03] MEDS: Levothyroxine Sodium 25 MCG TABLET PO (05:42)
[2021-01-03] MEDS: Omeprazole 20 MG CAPSULE.DR PO (05:42)
[2021-01-03 06:00] VITALS: BP 111/79; PULSE 89; RESP 16; TEMP 36.3
[2021-01-03] MEDS: Ibuprofen 600 MG TABLET PO ×2 (07:51→16:13)
[2021-01-03] MEDS: Divalproex Sodium 250 MG TABLET.DR 1250 MG PO (08:18)
[2021-01-03] MEDS: Nystatin Oral Susp 500,000 UNIT/5 ML ORAL.SUSP 500000 UNIT PO ×4 (08:18→22:40)
[2021-01-03] MEDS: Nicotine 21 MG PATCH.TD24 TRANSDERMA (08:18)
[2021-01-03 08:19] VITALS: BP 133/86; PULSE 85
[2021-01-03] MEDS: Gabapentin 100 MG CAPSULE PO ×3 (08:19→22:40)
[2021-01-03] MEDS: Acyclovir 200 MG CAPSULE 400 MG PO ×3 (08:19→22:39)
[2021-01-03] MEDS: Ferrous Sulfate 324 MG TABLET.DR PO (08:19)
[2021-01-03] MEDS: lisinopriL 5 MG TABLET PO (08:19)
--- NOTE | 2021-01-03 10:06 | P.PNPSI_ITS ---
Subjective Subjective Date of Service: 01/03/21 Reason For Visit: baclofen overdose Interim History: Mood is better, no SI. Patient says she still feels very anxious about her living situation which she finds to be overall and safe due to the crime and drug use in the area of. She her plan is to move out as soon as possible. She is tolerating her medications well. She considered asking for Prozac since she frequently gets depressed in the winter however she is not sure if in the past she got Prozac while also on Depakote; thus patient decides to hold off on changing her medication regimen for now and seeing how things go. Patient does ask to get on to Suboxone for help with pain and to help prevent relapse to which rfp writer agrees. Mental Status Exam Mental Status Exam Narrative: Pt is alert and oriented; behavior is cooperative, friendly and calm; patient is not in distress; dressed in casual attire with adequate hygiene; mood is described as anxious and affect congruent; eye contact appropriate; Speech is normal rate, volume and prosody and not pressured; no psychomotor agitation/retardation present; thought process is organized and goal directed; Thought content is on tx; otherwise pertinent to relevant topics and without any delusional content, paranoid ideations or grandiosity; denies any SI/HI. There is no evidence of perceptual disturbance. Patients insight and judgment appear intact. Diagnostics Vital Signs (24Hr): Vital Signs - 24 hr 01/02/21 16:40 01/02/21 20:00 01/02/21 20:01 Temperature 98.0 F 97.9 F Pulse Rate 82 87 87 Blood Pressure 136/96 H 111/79 111/79 01/03/21 08:19 Temperature Pulse Rate 85 Blood Pressure 133/86 Body Mass Index 49.1 Labs Results: 01/03/21 10:46 Medications Medications Current Medications Acetaminophen (Acetaminophen 325 Mg Tablet) 650 mg PO Q6H PRN PRN Reason: Pain, Mild (Pain Scale 1-3) Last Admin: 01/03/21 00:40 Dose: 650 mg Documented by: Acyclovir (Acyclovir 200 Mg Capsule) 400 mg PO TID JOSE DANIEL Last Admin: 01/03/21 08:19 Dose: 400 mg Documented by: Al Hydroxide/Mg Hydroxide (Magnesium Hydrox/Alum Hydrox 30 Ml Oral.Susp) 30 ml PO Q6H PRN PRN Reason: Heartburn/Nausea Benzocaine (Throat Lozenge, Medicated Lozenge) 1 lozenge MUCOUS MEM Q2H PRN PRN Reason: Sore Throat Last Admin: 01/03/21 05:06 Dose: 1 lozenge Documented by: Divalproex Sodium (Divalproex Sodium 250 Mg Tablet.) 1,250 mg PO DAILY [facility] Last Admin: 01/03/21 08:18 Dose: 1,250 mg Documented by: Ferrous Sulfate (Ferrous Sulfate 324 Mg Tablet.) 324 mg PO DAILY [facility] Last Admin: 01/03/21 08:19 Dose: 324 mg Documented by: Gabapentin (Gabapentin 100 Mg Capsule) 100 mg PO TID [facility] Last Admin: 01/03/21 08:19 Dose: 100 mg Documented by: Ibuprofen (Ibuprofen 600 Mg Tablet) 600 mg PO Q6H PRN PRN Reason: Pain, Moderate (Pain Scale 4-6 Last Admin: 01/03/21 07:51 Dose: 600 mg Documented by: Levothyroxine Sodium (Levothyroxine Sodium 25 Mcg Tablet) 25 mcg PO DAILY@0600 [facility] Last Admin: 01/03/21 05:42 Dose: 25 mcg Documented by: Lisinopril (Lisinopril 5 Mg Tablet) 5 mg PO DAILY [facility]; Protocol Last Admin: 01/03/21 08:19 Dose: 5 mg Documented by: Loperamide HCl (Loperamide Hcl 2 Mg Capsule) 2 mg PO Q4H PRN PRN Reason: Diarrhea Last Admin: 01/02/21 00:07 Dose: 2 mg Documented by: Magnesium Hydroxide (Milk Of Magnesia 30 Ml Oral.Susp) 30 ml PO DAILY PRN PRN Reason: Constipation Last Admin: 01/02/21 14:06 Dose: 30 ml Documented by: Nicotine (Nicotine 21 Mg Patch.Td24) 21 mg TRANSDERMA DAILY [facility] Last Admin: 01/03/21 08:18 Dose: 21 mg Documented by: Nicotine Polacrilex (Nicotine Polacrilex 2 Mg Gum) 4 mg BUCCAL Q2H PRN PRN Reason: Nicotine Cravings Last Admin: 01/03/21 09:11 Dose: 4 mg Documented by: Nystatin (Nystatin Oral Susp 500,000 Unit/5 Ml Oral.Susp) 500,000 unit PO QID [facility] Last Admin: 01/03/21 08:18 Dose: 500,000 unit Documented by: Omeprazole (Omeprazole 20 Mg Capsule.) 20 mg PO DAILY@0630 [facility] Last Admin: 01/03/21 05:42 Dose: 20 mg Documented by: Prazosin HCl (Prazosin Hcl 5 Mg Capsule) 5 mg PO BEDTIME [facility]; Protocol Last Admin: 01/02/21 20:01 Dose: 5 mg Documented by: Trazodone HCl (Trazodone Hcl 50 Mg Tablet) 50 mg PO BEDTIME [facility] Last Admin: 01/02/21 20:01 Dose: 50 mg Documented by: Allergies Allergies Allergy/AdvReac Type Severity Reaction Status Date / Time hydromorphone Allergy Unknown Unknown Verified 12/28/20 12:36 insect venom [INSECT BITES] Allergy Unknown UNKNOWN Verified 12/28/20 12:36 Penicillins Allergy Unknown UNKNOWN Verified 12/28/20 12:36 sulfamethoxazole Allergy Unknown UNKNOWN Verified 12/28/20 12:36 [From BACTRIM] trimethoprim [From BACTRIM] Allergy Unknown UNKNOWN Verified 12/28/20 12:36 From DILAUDID Allergy Unknown RASH Uncoded 11/06/19 16:41 Assessment & Plan Assessment & Plan (1) Bipolar 1 disorder, manic, moderate: Status: Acute Code(s): F31.12 - Bipolar disorder, current episode manic without psychotic features, moderate (2) Cocaine use disorder: Status: Acute Code(s): F14.10 - Cocaine abuse, uncomplicated Assessment and Plan: Pt is known to [facility] [place] [facility], prev IPLOC 07/2020. She has hx of manic episodes with sx of hyposomnia and impulsivity. Has numerous psychosocial stressors and recent relapse on cocaine, perocet. Presented to ED due to out of control behaviors at home in context of substance use and OD on baclofen. Hx of SA by OD. Pt currently on VPA and prazosin, does not want med changes. VPA L subtherapeutic despite pt reporting good adherence, may obtain updated level. Will order acyclovir, nystatin, nicotine patch, cepacol to address numerous somatic complaints. Patient's mood has improved; she has some mild depression and anxiety however SI fully resolved. PLAN: Continue on Depakote dose Will get Depakote levels and related lab work on 01/04 Invega Sustenna 156 mg Q monthly due today and ordered Will start patient on Suboxone for/1 mg b.i.d. p.r.n. for pain Monitor response to medications. Monitor for safety in the milieu. Discharge on stabilization. Patient seen. Chart reviewed. Discussed with team. Obtain collateral contact info?as needed 01/02/2021 continue current regimen and plans I spent minutes with the patient and/or on the patient floor today, greater than?50% of which was spent counseling/coordinating care. Reason for contiued inpatient stay Substantial Risk for: med/psych decompensation
[2021-01-03 10:50] LABS: MANUAL DIFF FLAG NO
[2021-01-03 10:57] LABS: Basophils Absolute Auto 0.1 X10*3/uL (0.0-0.2); Basophils Percent Auto 0.6 % (0-2); Eosinophils Absolute Auto 0.3 X10*3/uL (0.0-0.4); Eosinophils Percent Auto 3.8 % (0-4); Hematocrit 34.4 % (37.0-47.0); Hemoglobin 10.7 g/dl (12.0-16.0); Imm Gran Abs Auto 0.05 X10*3/uL (0.00-0.03); Imm Gran Pct Auto 0.6 % (0.0-0.4); Lymphocytes Absolute Auto 1.8 X10*3/uL (1.2-4.9); Lymphocytes Percent Auto 22.4 % (20-40); Mean Corpuscular HGB Conc 31.1 g/dl (31.0-35.0); Mean Corpuscular Hemoglobin 24.2 pg (27.0-33.0); Mean Corpuscular Volume 77.8 fL (80.0-98.0); Mean Platelet Volume 10.5 fL (9.4-12.3); Monocytes Absolute Auto 0.7 X10*3/uL (0.1-1.2); Monocytes Percent Auto 8.8 % (2-11); Neutrophils Absolute Auto 5.1 x10*3/uL (2.0-8.3); Neutrophils Percent Auto 63.8 % (45-73); Platelet Count 315 X10*3/uL (160-400); Red Blood Count 4.42 X10*6/uL (4.20-5.50)
[2021-01-03] MEDS: Paliperidone Palmitate 156 MG/ML SYRINGE IM (11:14)
[2021-01-03] MEDS: Pseudoephedrine HCL 30 MG TABLET PO (14:53)
[2021-01-03] MEDS: Buprenorphine/Naloxone 4/1 mg FILM 1 FILM SUBLINGUAL ×2 (16:37→21:40)
[2021-01-03 18:00] VITALS: BP 121/75; PULSE 77; RESP 18; O2SAT 99
[2021-01-03] MEDS: diphenhydrAMINE HCL 25 MG TABLET 50 MG PO (22:38)
[2021-01-03 22:39] VITALS: BP 121/75; PULSE 77
[2021-01-03] MEDS: Prazosin HCL 5 MG CAPSULE PO (22:39)
[2021-01-03] MEDS: traZODone HCL 50 MG TABLET PO (22:40)
[2021-01-04] MEDS: Ibuprofen 600 MG TABLET PO ×4 (00:51→22:49)
[2021-01-04] MEDS: Nicotine Polacrilex 2 MG GUM 4 MG BUCCAL ×7 (00:52→21:34)
[2021-01-04] MEDS: Throat Lozenge, Medicated LOZENGE 1 LOZENGE MUCOUS MEM ×3 (00:52→08:40)
[2021-01-04] MEDS: Pseudoephedrine HCL 30 MG TABLET PO (00:56)
[2021-01-04] MEDS: Levothyroxine Sodium 25 MCG TABLET PO (05:46)
[2021-01-04] MEDS: Omeprazole 20 MG CAPSULE.DR PO (05:46)
[2021-01-04 06:00] VITALS: BP 122/74; PULSE 86; RESP 16; TEMP 36.2; O2SAT 95
[2021-01-04] MEDS: Nicotine 21 MG PATCH.TD24 TRANSDERMA (08:35)
[2021-01-04] MEDS: Nystatin Oral Susp 500,000 UNIT/5 ML ORAL.SUSP 500000 UNIT PO ×4 (08:36→21:57)
[2021-01-04] MEDS: Gabapentin 100 MG CAPSULE PO ×3 (08:38→21:25)
[2021-01-04] MEDS: Acyclovir 200 MG CAPSULE 400 MG PO ×3 (08:38→21:24)
[2021-01-04] MEDS: Buprenorphine/Naloxone 4/1 mg FILM 1 FILM SUBLINGUAL ×3 (08:38→21:24)
[2021-01-04] MEDS: Ferrous Sulfate 324 MG TABLET.DR PO (08:38)
[2021-01-04 08:39] VITALS: BP 128/72; PULSE 79
[2021-01-04] MEDS: lisinopriL 5 MG TABLET PO (08:39)
[2021-01-04] MEDS: Divalproex Sodium 250 MG TABLET.DR 1250 MG PO (08:39)
[2021-01-04 08:54] LABS: Ammonia 28 umol/L (13-55)
[2021-01-04 09:18] LABS: Alanine Aminotransferase 24 U/L (0-31); Alkaline Phosphatase 74 U/L (39-117); Aspartate Amino Transferase 19 U/L (5-31); Bilirubin Direct 0.2 mg/dL (0.0-0.5); Bilirubin Total 0.4 mg/dL (0.0-1.0); Blood Urea Nitrogen 12 mg/dL (9-16); Creatinine Clr Calc Pharmacy 112.8; Estimated Glomerular Filt Rate > 60; Total Protein 6.9 g/dL (6.5-8.0)
[2021-01-04 09:25] LABS: Valproate 18.2 mcg/mL (50.0-100.0)
[2021-01-04] MEDS: diphenhydrAMINE HCL 25 MG TABLET 50 MG PO (13:07)
--- NOTE | 2021-01-04 14:05 | P.PNPSI_ITS ---
Subjective Subjective Date of Service: 01/04/21 Reason For Visit: baclofen overdose Interim History: pt reports she's good, no SI, feeling stable and ready for discharge. She reports the Suboxone is helping very much; she is holding off on taking second prn so she'll be covered for later in the evening; television script writer offered to increase to TID (rather add exta dose to avoid triggering craving and thus relapse) which pt agreed. Went over labs and pt's Depakote level is lower than on admission. Pt has been taking depakote daily and staff does not thinks she's been cheeking it. Pt said this is typical for since she had Gastric Bypass surgery in 2008. She says her GI doc, Dr. Ho told her to avoid long acting meds since she will struggle to absorb them, but rather to take immediate relse ase. Waiter/Waitress Cafeteria agrees this may be necessary; however, she is going to discharge tomorrow. Waiter/Waitress Cafeteria and pt agree to increase XL to 1500mg after which pt will follow up with outpt provider Natasha and see about switching to Immediate release. Mental Status Exam Mental Status Exam Narrative: Pt is alert and oriented; behavior is cooperative, friendly and calm; patient is not in distress; dressed in casual attire with adequate hygiene; mood is described as good and affect congruent; eye contact appropriate; Speech is normal rate, volume and prosody and not pressured; no psychomotor agitation/retardation present; thought process is organized and goal directed;? Thought content is on tx; otherwise pertinent to relevant topics and without any delusional content, paranoid ideations or grandiosity; denies any SI/HI. There is no evidence of perceptual disturbance. ?Patients insight and judgment appear intact. Diagnostics Vital Signs (24Hr): Vital Signs - 24 hr 01/03/21 18:00 01/03/21 22:39 01/04/21 06:00 Temperature 97.2 F Pulse Rate 77 77 86 Respiratory Rate 18 16 Blood Pressure 121/75 121/75 122/74 Pulse Oximetry 99 95 01/04/21 08:39 Temperature Pulse Rate 79 Respiratory Rate Blood Pressure 128/72 Pulse Oximetry Body Mass Index 49.1 Labs Results: 01/03/21 10:46 01/04/21 07:52 Labs: Laboratory Results - last 48 hr 01/03/21 01/04/21 01/04/21 10:46 07:52 07:52 WBC 8.0 RBC 4.42 Hgb 10.7 L Hct 34.4 L MCV 77.8 L MCH 24.2 L MCHC 31.1 RDW 14.0 Plt Count 315 D MPV 10.5 Immature Gran % (Auto) 0.6 H Neut % (Auto) 63.8 Lymph % (Auto) 22.4 Gillespie % (Auto) 8.8 Eos % (Auto) 3.8 Baso % (Auto) 0.6 Lymph # (Auto) 1.8 Gillespie # (Auto) 0.7 Eos # (Auto) 0.3 Baso # (Auto) 0.1 Abs Immat Gran (auto) 0.05 H Absolute Neuts (auto) 5.1 Absolute Nucleated RBC 0.000 Nucleated RBC % (auto) 0.0 BUN 12 D Creatinine 0.74 Estim Creat Clear Calc 112.8 Estimated GFR > 60 Total Bilirubin 0.4 Direct Bilirubin 0.2 AST 19 D ALT 24 Alkaline Phosphatase 74 Ammonia 28 Total Protein 6.9 Albumin 4.0 Valproic Acid 18.2 L Medications Medications Current Medications Acetaminophen (Acetaminophen 325 Mg Tablet) 650 mg PO Q6H PRN PRN Reason: Pain, Mild (Pain Scale 1-3) Last Admin: 01/03/21 00:40 Dose: 650 mg Documented by: Acyclovir (Acyclovir 200 Mg Capsule) 400 mg PO TID JOSE DANIEL Last Admin: 01/04/21 08:38 Dose: 400 mg Documented by: Al Hydroxide/Mg Hydroxide (Magnesium Hydrox/Alum Hydrox 30 Ml Oral.Susp) 30 ml PO Q6H PRN PRN Reason: Heartburn/Nausea Benzocaine (Throat Lozenge, Medicated Lozenge) 1 lozenge MUCOUS MEM Q2H PRN PRN Reason: Sore Throat Last Admin: 01/04/21 08:40 Dose: 1 lozenge Documented by: Buprenorphine/Naloxone (Buprenorphine/Naloxone 4/1 Mg Film) 1 film SUBLINGUAL BID PRN PRN Reason: mod-severe pain Last Admin: 01/04/21 08:38 Dose: 1 film Documented by: Diphenhydramine HCl (Diphenhydramine Hcl 25 Mg Tablet) 50 mg PO Q4H PRN PRN Reason: Itching Last Admin: 01/04/21 13:07 Dose: 50 mg Documented by: Divalproex Sodium (Divalproex Sodium 500 Mg Tablet.) 1,500 mg PO DAILY [facility] Ferrous Sulfate (Ferrous Sulfate 324 Mg Tablet.) 324 mg PO DAILY [facility] Last Admin: 01/04/21 08:38 Dose: 324 mg Documented by: Gabapentin (Gabapentin 100 Mg Capsule) 100 mg PO TID [facility] Last Admin: 01/04/21 08:38 Dose: 100 mg Documented by: Ibuprofen (Ibuprofen 600 Mg Tablet) 600 mg PO Q6H PRN PRN Reason: Pain, Moderate (Pain Scale 4-6 Last Admin: 01/04/21 05:48 Dose: 600 mg Documented by: Levothyroxine Sodium (Levothyroxine Sodium 25 Mcg Tablet) 25 mcg PO DAILY@0600 [facility] Last Admin: 01/04/21 05:46 Dose: 25 mcg Documented by: Lisinopril (Lisinopril 5 Mg Tablet) 5 mg PO DAILY [facility]; Protocol Last Admin: 01/04/21 08:39 Dose: 5 mg Documented by: Loperamide HCl (Loperamide Hcl 2 Mg Capsule) 2 mg PO Q4H PRN PRN Reason: Diarrhea Last Admin: 01/02/21 00:07 Dose: 2 mg Documented by: Magnesium Hydroxide (Milk Of Magnesia 30 Ml Oral.Susp) 30 ml PO DAILY PRN PRN Reason: Constipation Last Admin: 01/02/21 14:06 Dose: 30 ml Documented by: Nicotine (Nicotine 21 Mg Patch.Td24) 21 mg TRANSDERMA DAILY [facility] Last Admin: 01/04/21 08:35 Dose: 21 mg Documented by: Nicotine Polacrilex (Nicotine Polacrilex 2 Mg Gum) 4 mg BUCCAL Q2H PRN PRN Reason: Nicotine Cravings Last Admin: 01/04/21 13:07 Dose: 4 mg Documented by: Nystatin (Nystatin Oral Susp 500,000 Unit/5 Ml Oral.Susp) 500,000 unit PO QID [facility] Last Admin: 01/04/21 13:07 Dose: 500,000 unit Documented by: Omeprazole (Omeprazole 20 Mg Capsule.) 20 mg PO DAILY@0630 [facility] Last Admin: 01/04/21 05:46 Dose: 20 mg Documented by: Paliperidone Palmitate (Paliperidone Palmitate 156 Mg/Ml Syringe) 156 mg IM Q30D [facility] Last Admin: 01/03/21 11:14 Dose: 156 mg Documented by: Prazosin HCl (Prazosin Hcl 5 Mg Capsule) 5 mg PO BEDTIME JOSE DANIEL; Protocol Last Admin: 01/03/21 22:39 Dose: 5 mg Documented by: Pseudoephedrine HCl (Pseudoephedrine Hcl 30 Mg Tablet) 30 mg PO Q4H PRN PRN Reason: Cough Last Admin: 01/04/21 00:56 Dose: 30 mg Documented by: Trazodone HCl (Trazodone Hcl 50 Mg Tablet) 50 mg PO BEDTIME JOSE DANIEL Last Admin: 01/03/21 22:40 Dose: 50 mg Documented by: Allergies Allergies Allergy/AdvReac Type Severity Reaction Status Date / Time hydromorphone Allergy Unknown Unknown Verified 12/28/20 12:36 insect venom [INSECT BITES] Allergy Unknown UNKNOWN Verified 12/28/20 12:36 Penicillins Allergy Unknown UNKNOWN Verified 12/28/20 12:36 sulfamethoxazole Allergy Unknown UNKNOWN Verified 12/28/20 12:36 [From BACTRIM] trimethoprim [From BACTRIM] Allergy Unknown UNKNOWN Verified 12/28/20 12:36 From DILAUDID Allergy Unknown RASH Uncoded 11/06/19 16:41 Assessment & Plan Assessment & Plan (1) Bipolar 1 disorder, manic, moderate: Status: Acute Code(s): F31.12 - Bipolar disorder, current episode manic without psychotic features, moderate (2) Cocaine use disorder: Status: Acute Code(s): F14.10 - Cocaine abuse, uncomplicated Assessment and Plan: Pt is known to [facility], prev IPLOC 07/2020. She has hx of manic episodes with sx of hyposomnia and impulsivity. Has numerous psychosocial stressors and recent relapse on cocaine, perocet. Presented to ED due to out of control behaviors at home in context of substance use and OD on baclofen. Hx of SA by OD. Pt currently on VPA and prazosin, does not want med changes. VPA L subtherapeutic despite pt reporting good adherence, may obtain updated level. Will order acyclo vir, nystatin, nicotine patch, cepacol to address numerous somatic complaints. Patient's mood has improved; she has some mild depression and anxiety however SI fully resolved. PLAN: INCREASE Depakote XL to 1500mg -trough level lower than on admission; no suspicion that pt is not taking medication; pt says it's due to gastric bypass and poor absorption. With pt leaving on 01/05, television script writer is hesitent to change to IR; would prefer pt to stay longer to redo meds since at low level, she's vulnerable to having another manic episode. Otherwise, increase dose to Depakote XL 1500mg and defer to outpt p rovider to switch to IR Invega Sustenna 156 mg Q monthly due today and ordered increase to Suboxone 4/1 mg T.i.d. p.r.n. for pain Monitor response to medications. Monitor for safety in the milieu. Discharge on stabilization. Patient seen. Chart reviewed. Discussed with team. Obtain collateral contact info?as needed 01/02/2021 continue current regimen and plans I spent minutes with the patient and/or on the patient floor today, greater than?50% of which was spent counseling/coordinating care. Reason for contiued inpatient stay Substantial Risk for: stable for discharge
[2021-01-04 18:00] VITALS: BP 131/73; PULSE 77; RESP 99; O2SAT 99
[2021-01-04] MEDS: LORazepam 1 MG TABLET PO (18:18)
[2021-01-04] MEDS: traZODone HCL 50 MG TABLET PO (21:25)
[2021-01-04] MEDS: Prazosin HCL 5 MG CAPSULE PO (21:25)
[2021-01-04] MEDS: Divalproex Sodium 500 MG TABLET.DR PO (21:25)
[2021-01-05 05:50] VITALS: BP 137/69; PULSE 72; TEMP 36.2; O2SAT 98
[2021-01-05] MEDS: Ibuprofen 600 MG TABLET PO (06:48)
[2021-01-05] MEDS: Levothyroxine Sodium 25 MCG TABLET PO (06:49)
[2021-01-05] MEDS: Omeprazole 20 MG CAPSULE.DR PO (06:49)
[2021-01-05] MEDS: Buprenorphine/Naloxone 4/1 mg FILM 1 FILM SUBLINGUAL (06:52)
[2021-01-05] MEDS: Nicotine 21 MG PATCH.TD24 TRANSDERMA (07:54)
[2021-01-05 07:55] VITALS: BP 140/89; PULSE 68
[2021-01-05] MEDS: Gabapentin 100 MG CAPSULE PO (07:55)
[2021-01-05] MEDS: Divalproex Sodium 500 MG TABLET.DR PO (07:55)
[2021-01-05] MEDS: Nystatin Oral Susp 500,000 UNIT/5 ML ORAL.SUSP 500000 UNIT PO (07:55)
[2021-01-05] MEDS: Ferrous Sulfate 324 MG TABLET.DR PO (07:55)
[2021-01-05] MEDS: Acyclovir 200 MG CAPSULE 400 MG PO (07:55)
[2021-01-05] MEDS: lisinopriL 5 MG TABLET PO (07:55)
[2021-01-05] MEDS: Nicotine Polacrilex 2 MG GUM 4 MG BUCCAL (07:55)
[2021-01-05 08:29] LABS: Glucose, Whole Blood 108 mg/dL (60-115)
--- NOTE | 2021-01-05 10:08 | PM.PSYDC ---
DS: Providers Provider Date of Service: 01/05/21 Date of admission: 12/31/20 12:55 Date of discharge: 01/05/21 Primary care physician: Maddie Kim MD Attending physician on admission: Jennifer Rao Attending physician on discharge: Justice Summers DS: Diagnosis Discharge Diagnosis (1) Bipolar 1 disorder, manic, moderate: Status: Acute (2) Cocaine use disorder: Status: Resolved DS: Medications Discharge Medications Home Medications: Home Medications Medication Instructions Recorded Confirmed divalproex 250 mg tablet,delayed 5 tab PO DAILY 10/15/20 12/31/20 release omeprazole 20 mg capsule,delayed 1 cap PO DAILY 12/28/20 12/31/20 release Narcan Prefilled 4 mg INTRANASAL ONCE PRN 01/01/21 01/01/21 Risperdal 0.5 mg PO BID 01/01/21 01/01/21 Seroquel 100 mg PO DAILY 01/01/21 01/01/21 gabapentin See Rx Instructions .ROUTE .COMPLEX 01/01/21 01/01/21 Previous Rx's Medication Instructions Recorded levothyroxine 25 mcg tablet 25 mcg PO DAILY #90 tab 05/06/20 lisinopril 5 mg tablet 5 mg PO DAILY #90 tab 05/06/20 prazosin 1 mg capsule 5 mg PO BEDTIME 30 Days #150 cap 08/24/20 acyclovir 200 mg capsule 400 mg PO TID 30 Days #180 cap 01/05/21 ferrous sulfate 324 mg (65 mg 324 mg PO DAILY 30 Days #30 tab 01/05/21 iron) tablet,delayed release prazosin 5 mg capsule 5 mg PO BEDTIME 30 Days #30 cap 01/05/21 Mental Status Exam Mental Status Exam Narrative: Pt is alert and oriented; behavior is cooperative, friendly and calm; patient is not in distress; dressed in casual attire, well groomed and with good hygiene; mood is described as good and affect congruent; eye contact appropriate; Speech is normal rate, volume and prosody and not pressured; no psychomotor agitation/retardation present; thought process is organized, linear, logical and goal directed;? Thought content is on tx; otherwise pertinent to relevant topics and without any delusional content, paranoid ideations or grandiosity; denies any SI/HI. There is no evidence of perceptual disturbance. ?Patients insight and judgment are intact. Data Data Completed and Pending Completed studies during hospitalization [Text1]: 01/03/21 01/04/21 01/04/21 10:46 07:52 07:52 WBC 8.0 RBC 4.42 Hgb 10.7 L Hct 34.4 L MCV 77.8 L MCH 24.2 L MCHC 31.1 RDW 14.0 Plt Count 315 D MPV 10.5 Immature Gran % (Auto) 0.6 H Neut % (Auto) 63.8 Lymph % (Auto) 22.4 Holt % (Auto) 8.8 Eos % (Auto) 3.8 Baso % (Auto) 0.6 Lymph # (Auto) 1.8 Holt # (Auto) 0.7 Eos # (Auto) 0.3 Baso # (Auto) 0.1 Abs Immat Gran (auto) 0.05 H Absolute Neuts (auto) 5.1 Absolute Nucleated RBC 0.000 Nucleated RBC % (auto) 0.0 BUN 12 D Creatinine 0.74 Estim Creat Clear Calc 112.8 Estimated GFR > 60 POC Glucose Total Bilirubin 0.4 Direct Bilirubin 0.2 AST 19 D ALT 24 Alkaline Phosphatase 74 Ammonia 28 Total Protein 6.9 Albumin 4.0 Valproic Acid 18.2 L 01/05/21 08:25 WBC RBC Hgb Hct MCV MCH MCHC RDW Plt Count MPV Immature Gran % (Auto) Neut % (Auto) Lymph % (Auto) Holt % (Auto) Eos % (Auto) Baso % (Auto) Lymph # (Auto) Holt # (Auto) Eos # (Auto) Baso # (Auto) Abs Immat Gran (auto) Absolute Neuts (auto) Absolute Nucleated RBC Nucleated RBC % (auto) BUN Creatinine Estim Creat Clear Calc Estimated GFR POC Glucose 108 Total Bilirubin Direct Bilirubin AST ALT Alkaline Phosphatase Ammonia Total Protein Albumin Valproic Acid DS: Summary Hospital Course Hospital Course: Atiya is a 45-year-old female who carries a dx of Bipolar I disorder. She presented to [facility] 12/28/20 via EMS after she reportedly punched a window. When EMS arrived to Pt?s apt, she was found dancing, screaming, yelling for Álvaro, throwing herself on the floor. In the ED, pt told her triage nurse that she took 25 tabs of baclofen 10 mg each. Prev seen at [facility] ED 12/25/20 due to cocaine abuse. While in the ED, pt became unresponsive and was intubated and transferred to ICU, placed on IV propofol. She developed fever with likely aspiration on CXR and was treated with ceftriaxone. Lactate normalized with treatment of the pneumonia. Blood cultures were negative. Utox was positive for THC, fentanyl, and cocaine on admission. She was extubated on 12/30/20 without incident. Baclofen was discontinued.? Per crisis eval, pt has numerous psychosocial stressors including financial instability, recent divorce, relapse on substances, housing instability. Quit her job and unemployed since 12/26/20. Prior to coming to the hospital, pt reported sx of sonya included hyposomnia, difficulty organizing/ focusing, forgetting appointments, mood dysregulation, and impulsivity.? On admission, patient signed a CV and presented having been medically cleared from the ICU. Patient was depressed however denied SI and was in good behavioral and impulse control. Patient was frustrated because her Depakote level was low despite her adamant reports that she has been taking her medications continually. Eventually, towards the end of admission patient explained that because she has a history of gastric bypass surgery, her GI surgeon told her that long-acting medications typically will not work well for her and she should be on immediate release; patient said that despite that her regimen has remained the same and this explains why her levels are always low. Of note, patient had been taking her Depakote consistently during her admission and her levels were still low. This information came on the heather of her discharge and thus publicity writer was hesitant to switch her to immediate release since she was currently stable and it was unclear what her appropriate immediate release dose should be. Instead publicity writer agreed to increase her extended release Depakote and defer to her outpatient provider to switch her to immediate release, a plan with which she agreed. Patient was continued on Invega Sustenna. She was also restarted on Suboxone 4/1 mg t.i.d. p.r.n. for pain which was effective. Throughout her time on the unit she remained in good behavioral and impulse control, without any SI, HI or AVH. She attended groups and was appropriate with peers and staff, forthcoming during interviews and engaged in her treatment; she was future oriented and optimistic about staying sober, feeling that Suboxone p.r.n. was very helpful. Patient felt ready for discharge. She was not in imminent risk for harm to self or others and was appropriate for discharge Time spent discussing smoking cessation with patient: 3 to 10 minutes Status at Discharge Functional status at discharge: independent ambulation Overall status at discharge: patient is back to baseline Time Spent with Patient Time attestation: Total time spent providing and/or coordinating discharge services: Time spent: Greater than 30 minutes Discharge Plan Discharge Patient Disposition: Home, Self-Care Discharge Diagnosis: bipolar disorder, type I, recurrent severe, most recently manic, in full remission Referrals: [facility] [Other] - 1 Week (Fax- [phone] [facility] to start on 01/06/21- they will call to set a time for the service. ) Suboxone: Sunitha Freedman ([facility]) [Other] - 01/20/21 1:00 pm () Therapist: Sunitha Jin ([facility]) [Other] - 1 Week (Sunitha is aware you need an appointment and said she will call you to schedule) Psych Prescriber: Marcos Kaur ([facility]) [Other] - 01/31/21 8:40 am (Telehealth- you will be sent an email with a link to join the appointment) Maddie Kim MD [Primary Care Provider] - 01/12/21 3:30 pm (via telephone) Discharge Medications: New acyclovir 200 mg Capsule 400 mg PO TID 30 Days Qty: 180 RF: 0 nicotine 21 mg/24 hr Patch 24 Hour 21 mg transdermal DAILY PRN (Reason: smoking cessation) 28 Days Qty: 28 RF: 0 nicotine (polacrilex) 2 mg Gum 4 mg buccal Q2H PRN (Reason: Nicotine Cravings) 30 Days Qty: 100 RF: 0 ferrous sulfate 324 mg (65 mg iron) Tablet,Delayed Release (Dr/Ec) 324 mg PO DAILY 30 Days Qty: 30 RF: 0 prazosin 5 mg capsule 5 mg PO BEDTIME 30 Days Qty: 30 RF: 0 divalproex 500 mg Tablet,Delayed Release (Dr/Ec) 500 mg PO BID 30 Days Qty: 60 RF: 0 gabapentin 100 mg Capsule 100 mg PO TID Qty: 0 RF: 0 Invega Sustenna 156 mg/mL Syringe 156 mg IM Q30D Qty: 0 RF: 0 buprenorphine-naloxone [Suboxone] 4-1 mg Film 1 film sublingual TID PRN (Reason: mod-severe pain) 16 Days Qty: 48 RF: 0 prazosin 5 mg Capsule 5 mg PO BEDTIME 30 Days Qty: 30 RF: 0 trazodone 50 mg Tablet 50 mg PO BEDTIME PRN (Reason: insomnia) 30 Days Qty: 30 RF: 0 diphenhydramine HCl [Allergy Relief(diphenhydramin)] 25 mg Tablet 50 mg PO Q4H PRN (Reason: Itching) 30 Days Qty: 60 RF: 0 nystatin 100,000 unit/mL Suspension 500,000 unit PO QID 10 Days Qty: 200 RF: 0 Continued levothyroxine 25 mcg tablet 25 mcg PO DAILY Qty: 90 RF: 3 lisinopril 5 mg tablet 5 mg PO DAILY Qty: 90 RF: 3 Narcan Prefilled 4 units nasal spray syringe 4 mg intranasal ONCE PRN (Reason: Opioid Overdose) RF: 0 Changed omeprazole 20 mg capsule,delayed release(DR/EC) 20 mg PO DAILY 30 Days Qty: 30 RF: 0 Discontinued prazosin 1 mg Capsule 5 mg PO BEDTIME 30 Days Qty: 150 RF: 0 divalproex 250 mg tablet,delayed release (DR/EC) 5 tab PO DAILY RF: 0 Seroquel 100 units tablet 100 mg PO DAILY RF: 0 gabapentin 300 units capsule See Rx Instructions .ROUTE .COMPLEX RF: 0 Risperdal 0.5 units tablet 0.5 mg PO BID RF: 0 Discharge Orders: Discharge Order (Routine); Ordered 01/05/21 Ordered By: Justice Summers Diet: regular diet Activity on Discharge: As tolerated Stand Alone Forms: Patient Portal Discharge page Care Plan Goals: Maintain mood and safe behaviors Take medications as prescribed Continue to pursue sobriety Practice coping skills Continue with outpatient providers and reach out to them as needed Health Concerns: Mood stability and behaviors Sobriety Plan of Treatment: Follow up with your PCP, psychiatric provider and other outpatient providers regarding above concerns Take medications as prescribed Assessment: Risk assessment at time of discharge:? Patient was interviewed prior to discharge and found to be fully oriented and without any SI or HI. Patient has insight and demonstrates good judgment in terms of wanting to pursue treatment. Patient is not in imminent risk of harm to self or others and has a safety plan that includes presenting to the closest ER or calling 911 if feeling unsafe.? Patient has been observed closely by nursing and unit staff throughout admission; patient has not engaged in any behaviors that suggest dangerousness to self or others and has demonstrated appropriate behaviors and impulse control Discharge Date/Time: 01/05/21 12:46
--- NOTE | 2021-01-05 10:46 | PC.NURSE ---
This shift Atiya reported that her injuries from a fall prior to admission were not documented as she was in the ICU prior to being on M5. With another nurse as a witness this engineering writer was able to visualize multiple bruises; 3 at the lateral side of the left upper leg, several at the lateral side of the right upper leg, 1 at the posterior of the left lower leg, 1 on the left side on the anterior of the abdomen, and 2 on the left side of the anterior of the chest.
== END 2021-01-05 12:46 | disposition home or self-care (01) | DRG 885 ==
PROVIDERS: Admitting Provider Psychiatry & Neurology Psychiatry; PCP General Practice; Visit Provider Psychiatry & Neurology Psychiatry
DX: F31.12 Bipolar disorder, current episode manic without psychotic features, moderate (principal); Z91.51 Personal history of suicidal behavior; F17.210 Nicotine dependence, cigarettes, uncomplicated; Z71.6 Tobacco abuse counseling; F14.10 Cocaine abuse, uncomplicated; Z62.810 Personal history of physical and sexual abuse in childhood; Z88.0 Allergy status to penicillin; Z88.2 Allergy status to sulfonamides; Z79.890 Hormone replacement therapy; Z79.899 Other long term (current) drug therapy
CPT/HCPCS: 36415; 80076; 80164; 82140; 82565; 82947; 84520; 85025; 90686; J2426; Q0163

== ENCOUNTER → 2021-01-06 08:20 | Outpatient (BNVA) | payer MEDICARE, SELFPAY | PROVIDERS: PCP General Practice; Visit Provider Anesthesiology | DX: M17.11 Unilateral primary osteoarthritis, right knee (principal) | CPT/HCPCS: 99212 ==

== ENCOUNTER 2021-01-11 07:12 | Outpatient (REF) | payer OTHER, SELFPAY ==
[2021-01-11 08:17] LABS: Ammonia 36 umol/L (13-55)
[2021-01-11 08:36] LABS: Alanine Aminotransferase 16 U/L (0-31); Albumin Level 3.9 g/dL (3.5-5.0); Alkaline Phosphatase 65 U/L (39-117); Aspartate Amino Transferase 12 U/L (5-31); Bilirubin Direct 0.2 mg/dL (0.0-0.5); Bilirubin Total 0.3 mg/dL (0.0-1.0); Total Protein 6.9 g/dL (6.5-8.0)
[2021-01-11 08:40] LABS: Valproate 39.2 mcg/mL (50.0-100.0)
== END 2021-01-11 07:13 | disposition home or self-care (01) ==
LOC: HO.LAB 07:12
PROVIDERS: Psychiatry & Neurology Psychiatry; PCP General Practice; Visit Provider Internal Medicine
DX: F31.12 Bipolar disorder, current episode manic without psychotic features, moderate (principal); Z51.81 Encounter for therapeutic drug level monitoring
CPT/HCPCS: 36415; 80076; 80164; 82140

== ENCOUNTER → 2021-01-20 13:08 | Outpatient (BNVA) | payer MEDICARE, SELFPAY | PROVIDERS: Visit Provider Nurse Practitioner Psychiatric/Mental Health | DX: Z51.81 Encounter for therapeutic drug level monitoring (principal); F11.10 Opioid abuse, uncomplicated | CPT/HCPCS: 80305; 99212 ==

== ENCOUNTER 2021-01-24 15:04 | Outpatient (REF) | payer MEDICARE, SELFPAY | END 2021-01-24 15:05 | disposition home or self-care (01) | LOC: HO.LAB 15:04 | PROVIDERS: PCP General Practice; Visit Provider Obstetrics & Gynecology | DX: R87.612 Low grade squamous intraepithelial lesion on cytologic smear of cervix (LGSIL) (principal); F31.9 Bipolar disorder, unspecified; F17.210 Nicotine dependence, cigarettes, uncomplicated; Z90.49 Acquired absence of other specified parts of digestive tract | CPT/HCPCS: 57454; 81025; 88305 ==

== ENCOUNTER → 2021-02-08 11:37 | Outpatient (BNVA) | payer MEDICARE, SELFPAY | PROVIDERS: PCP General Practice; Visit Provider Obstetrics & Gynecology | DX: R87.612 Low grade squamous intraepithelial lesion on cytologic smear of cervix (LGSIL) (principal) | CPT/HCPCS: 99212 ==

== ENCOUNTER 2021-03-17 10:27 | Day surgery (SDC) | payer MEDICARE, SELFPAY ==
[2021-03-11 13:34] VITALS: BMI 49.0
--- NOTE | 2021-03-16 09:21 | P.CONAN_ITS ---
Documented by User: Carley Farris NP 03/16/21 09:30 HPI - Anesthesia Eval Consult details Narrative: 45yo F for Geniculate Nerve RFA Suboxone daily Cocaine abuse PMFSH Active Problems Active Problems: All Active Problems (Updated 02/08/21 @ 11:51 by John Schmidt MD) Obesity (Acute) Chronic mental illness (Acute) Arthritis (Acute) Peptic ulcer disease (Acute) Chronic back pain (Acute) Herniated disc (Acute) Depression (Acute) Anemia (Acute) Knee pain (Chronic) Osteoarthritis of right knee (Acute) Pneumonia (Acute) Opioid use disorder, mild, abuse (Acute) LGSIL on Pap smear of cervix (Acute) PTSD (post-traumatic stress disorder) (Acute) Bipolar 1 disorder, manic, moderate (Acute) Psychiatric diagnosis (Acute) Past Medical History Medical History Alcohol abuse Alcohol abuse Baclofen overdose Bipolar 1 disorder, manic, moderate Cocaine abuse Hypertension Psychiatric diagnosis PTSD (post-traumatic stress disorder) Substance abuse Surgical History Surgical History History of ankle surgery History of cholecystectomy Social History Social History (Updated 03/17/21 @ 12:51 by Lori Espinal MD) Household Members: Unknown / Unable to assess Household Members Other:: lives by self Housing: Apartment Do you presently have visiting nurse or other home services: No Unable to assess alcohol history related to: Unknown Alcohol intake: unknown Patient Tobacco Use Status: Current everyday Tobacco user Tobacco use type: Cigarette Cigarette Packs Per Day: 1.5 Cigarettes Per Day: 30.0 Smoked in Last 30 Days: Yes e-Cigarette/Vaping Use: Never Used Second Hand Smoke Exposure: No Use of substances other than those prescribed or required for medical reasons: Yes Substance Use Type: Marijuana Substance Use Type Other:: on suboxone Advance Directives: Yes Advance Directives Information Provided: Yes Advance Directives on File: Yes Advance Directives Date on File: 09/06/15 service: No 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al status: unemployed 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 handed/ [employer] Sexual orientation: Straight/Heterosexual Meds Allergies Allergy/AdvReac Type Severity Reaction Status Date / Time hydromorphone Allergy Intermediate Rash Verified 03/11/21 12:32 insect venom Allergy Unknown UNKNOWN Verified 01/24/21 15:32 [INSECT BITES] sulfamethoxazole Allergy Unknown Anaphylaxis Verified 03/17/21 11:12 [From BACTRIM] trimethoprim [From Allergy Unknown Anaphylaxis Verified 03/17/21 11:12 BACTRIM] Home Medications Medication Instructions Recorded Confirmed Last Taken Type Narcan Prefilled 4 mg INTRANASAL 01/01/21 01/01/21 Unknown History ONCE PRN Exam Exam Date and Time: March 16, [id number] Height,Weight and Vital Signs: Height 5 ft Weight 113.852 kg Pertinent Lab Results Pertinent Lab Results: Laboratory Tests 12/30/20 01/03/21 01/04/21 05:25 10:46 07:52 WBC 8.0 Hgb 10.7 L Hct 34.4 L Plt Count 315 D Sodium 139 Potassium 3.9 Chloride 106 Carbon Dioxide 26 BUN 12 D Creatinine 0.74 Assessment and Plan Assessment Anesthesia Assessment: Chart Reviewed Documented by User: Lori Espinal MD 03/17/21 13:09 PMF Active Problems Active Problems: All Active Problems (Updated 02/08/21 @ 11:51 by John Schmidt MD) Obesity (Acute) Chronic mental illness (Acute) Arthritis (Acute) Peptic ulcer disease (Acute) Chronic back pain (Acute) Herniated disc (Acute) Depression (Acute) Anemia (Acute) Knee pain (Chronic) Osteoarthritis of right knee (Acute) Pneumonia (Acute) Opioid use disorder, mild, abuse (Acute) LGSIL on Pap smear of cervix (Acute) PTSD (post-traumatic stress disorder) (Acute) Bipolar 1 disorder, manic, moderate (Acute) Psychiatric diagnosis (Acute) Exposure to Covid positive patent (daughter) 02/23/21. Had symptoms later but n ever tested [facility]. On admission for Psychiatric crisis Intubated twice in the past-2017 @ [facility] and 12/2020 here @[facility] for overdose/suicidal gesture. Intubated for 2 days in ICU Hypothyroidism Past Medical History Medical History Alcohol abuse Alcohol abuse Baclofen overdose Bipolar 1 disorder, manic, moderate Cocaine abuse Hypertension Psychiatric diagnosis PTSD (post-traumatic stress disorder) Substance abuse Family History Family history of problems with anesthesia: No Surgical History Surgical History History of ankle surgery History of cholecystectomy History of Problems with Anesthesia: No Social History Social History (Updated 03/17/21 @ 12:51 by Lori Espinal MD) Household Members: Unknown / Unable to assess Household Members Other:: lives by self Housing: Apartment Do you presently have visiting nurse or other home services: No Unable to assess alcohol history related to: Unknown Alcohol intake: unknown Patient Tobacco Use Status: Current everyday Tobacco user Tobacco use type: Cigarette Cigarette Packs Per Day: 1.5 Cigarettes Per Day: 30.0 Smoked in Last 30 Days: Yes e-Cigarette/Vaping Use: Never Used Second Hand Smoke Exposure: No Use of substances other than those prescribed or required for medical reasons: Yes Substance Use Type: Marijuana Substance Use Type Other:: on suboxone Advance Directives: Yes Advance Directives Information Provided: Yes Advance Directives on File: Yes Advance Directives Date on File: 09/06/15 service: No 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al status: unemployed 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 handed/ [employer] Sexual orientation: Straight/Heterosexual Meds Allergies Allergy/AdvReac Type Severity Reaction Status Date / Time hydromorphone Allergy Intermediate Rash Verified 03/11/21 12:32 insect venom Allergy Unknown UNKNOWN Verified 01/24/21 15:32 [INSECT BITES] sulfamethoxazole Allergy Unknown Anaphylaxis Verified 03/17/21 11:12 [From BACTRIM] trimethoprim [From Allergy Unknown Anaphylaxis Verified 03/17/21 11:12 BACTRIM] Home Medications Medication Instructions Recorded Confirmed Last Taken Type Narcan Prefilled 4 mg INTRANASAL 01/01/21 01/01/21 Unknown History ONCE PRN Exam Height,Weight and Vital Signs: Height 5 ft Weight 113.852 kg Vital Signs Temp Pulse Resp BP Pulse Ox 03/17/21 11:08 97.8 F 98 18 145/87 H 98 Pertinent Lab Results Pertinent Lab Results: Laboratory Tests 12/30/20 01/03/21 01/04/21 05:25 10:46 07:52 WBC 8.0 Hgb 10.7 L Hct 34.4 L Plt Count 315 D Sodium 139 Potassium 3.9 Chloride 106 Carbon Dioxide 26 BUN 12 D Creatinine 0.74 Lab Results 03/17/21 03/17/21 Range/Units 10:45 10:45 Urine Test NEGATIVE (NEGATIVE) Urine Opiates Screen Not Detected (Not Detect) Urine Fentanyl Screen Not Detected (Not Detect) Ur Barbiturates Screen Not Detected (Not Detect) Ur Phencyclidine Scrn Not Detected (Not Detect) Ur Amphetamines Screen Not Detected (Not Detect) U Benzodiazepines Scrn Not Detected (Not Detect) Urine Cocaine Screen Not Detected (Not Detect) U Marijuana (THC) Screen Not Detected (Not Detect) Airway Mallampati Class: II TM Dist: >3cm Neck ROM: Full Heart: RRR Lungs: CTAB Assessment and Plan Assessment Anesthesia Assessment: Anesthesia Plan Discussed Final Anesthetic Review Family History of Problems with Anesthesia: No History of Problems with Anesthesia: No NPO: Yes (Black coffee 7am) ASA Class: III Final Preanesthetic Review: No Changes in Pt Med Stat, Meds/Allgs Chart Reviewed, Consent Obtained/Reviewed and Anes Risks/Benef Reviewed Patient Risk: Intermediate Procedure Risk: Low Assessment/Block/Sedation in SS: Assess/Block/Sedation-SS Anesthetic Plan Anesthetic Plan: MAC: Disposition: Standard PACU
--- NOTE | ~2021-03-17 | FL_ITS ---
EXAMINATION: XR FLUOROSCOPY WITH IMAGES CLINICAL INFORMATION: Right knee pain. Osteoarthritis. COMPARISON: Radiographs right knee 10/04/2020 TECHNIQUE: Fluoroscopy performed by Dr. Raghavendra Rivera. Fluoroscopy time: 0.4 minutes DAP: 1.66 Gycm2 Images: 2 FINDINGS: There are spinal needles/electrodes adjacent to the distal femoral shaft, medial and lateral sides, mid depth. There is a spinal needle/electrode adjacent to the proximal tibia on medial side mid depth. Osteoarthritic changes again seen medial knee joint compartment with joint narrowing and osteophytes and mild genu varus. FL/FL guidance in OR IMPRESSION: Fluoroscopy for pain management procedures.
--- NOTE | 2021-03-17 10:54 | PC.NURSE ---
MD MARC AWARE OF PATIENT DRINKING COFFEE AT 7AM SPLENDA AND NO CREAM PER PATIENT. DISCHARGED FROM [facility] YESTERDAY DUE TO CRISIS. DENIES SI. SMILING
[2021-03-17 11:03] LABS: UPreg QC Valid YES; Urine Pregnancy NEGATIVE (NEGATIVE)
[2021-03-17 11:08] VITALS: BP 145/87; PULSE 98; RESP 18; TEMP 36.6; O2SAT 98
[2021-03-17 11:14] LABS: Amphetamine Screen Urine Not Detected (Not Detect); Barbiturates, Urine Not Detected (Not Detect); Benzodiazepines Screen Urine Not Detected (Not Detect); Cannabinoid Screen Urine Not Detected (Not Detect); Cocaine Screen Urine Not Detected (Not Detect); Fentanyl, urine Not Detected (Not Detect); Opiate Screen Urine Not Detected (Not Detect); Phencyclidine Screen Urine Not Detected (Not Detect)
[2021-03-17] MEDS: Lactated Ringers 1,000 ML 100 ML IVCONT (11:24)
--- NOTE | 2021-03-17 11:57 | MHC.SHP ---
Pre-Procedural Eval Section A Date of Service: 03/17/21 Changes since office visit: Yes Patient answered all questions The History & Physical has been completed within 30 days and I have reviewed it.: No Section B Chief Complaint: unilateral primary osteoarthritis Details of Present Illness: as above Relevant Family History (Specify if Yes): No Present Medications: see Short Stay Collaborative assessment Medical History: No relevant PMH History of Previous Operations: No relevant previous surgery Allergies: Allergies Allergy/AdvReac Type Severity Reaction Status Date / Time hydromorphone Allergy Intermediate Rash Verified 03/11/21 12:32 insect venom [INSECT BITES] Allergy Unknown UNKNOWN Verified 01/24/21 15:32 sulfamethoxazole Allergy Unknown Anaphylaxis Verified 03/17/21 11:12 [From BACTRIM] trimethoprim [From BACTRIM] Allergy Unknown Anaphylaxis Verified 03/17/21 11:12 Review of Systems Sugical H&P ROS: Negative: Cardiovascular, Respiratory, Neurological, Psychiatric, Hem-Onc, Allergic/Immunologic, Gastrointestinal, Genitourinary, Integumentary, Endocrine and Eyes/Ears/Nose/Throat and Yes, Specify: Constitution (obese) and Musculoskeletal (knee osteoarthritis) Exam Surgical H&P Exam: Normal: HEENT, Normal: Heart, Normal: Lungs, Normal: Abdomen, Normal: Skin and Normal: Neurological and Significant Findings: Extremities (knee osteoarthritis) Plan Diagnosis/Plan: Unchanged I have reviewed the history and physical and performed a pertinent physical examination on my patient. No changes have occurred unless specified.
[2021-03-17 13:32] VITALS: BP 134/94; PULSE 96; RESP 20; TEMP 36.7; O2SAT 100
--- NOTE | 2021-03-17 13:43 | P.BOP_ITS ---
Brief Operative Note Date of Service: 03/17/21 Pre-op diagnosis: right knee osteoarthritis Post-op diagnosis: same Procedure: radiofrequency ablation of right knee genicular nerves Implants: none permanent Surgeon: Raghavendra Rivera MD Anesthesia: MAC Was an Supervisor Filling And Packing used for this Procedure?: No Estimated blood loss (mL): 3 Condition: stable Disposition: PACU
[2021-03-17 13:48] VITALS: BP 144/96; PULSE 93; RESP 16; O2SAT 100
--- NOTE | 2021-03-17 13:49 | W.PM.OPN ---
Operative Note Operative Note Date of Service: 03/17/21 Narrative: ?Patient came to the operating room after informed consent was obtained.? She was taken to the operating room where she was positioned supine on the operating table. Time-out procedure was performed delineating correct site and side of the injections, patient's name and date of , allergies, need for antibiotics, risk of fire. [place] [employer] he monitors were applied and patient was deeply sedated. ? ? ? Patient's Right knee as well as anterior surface of lower thigh as well as anterior surface of upper shins were prepped with ChloraPrep and draped with sterile towels.? Sterilely draped C-arm was brought over the operating field and SQ picture of the patient's left knee was obtained on the screen.? The point of interest were delineated as connection of bilateral metaphysis and diaphysis medial and lateral of the right femoral bone, as well as connections of the diaphysis and metaphysis of the right on the medial tibial bone.? The point of interest projection to the skin were injected with small amount of Lidocaine and after that CANNULAS FOR COOLED RADIOFREQUENCY ABLATION were inserted through the skin and advanced to the point of interest on anterior posterior and lateral views. When radiofrequency cannulas were positioned on the margin of the bone on anterior posterior view and at the mid shaft of the bone on the lateral view - the stylets were removed from the needles and cooled RF probes were inserted into the shafts of the cannulas.? Small amount of mixture of lidocaine 2% a and bupivacaine 0.5% with trace amount of Kenalog was injected into each cannula through the side ports.? After that the cannula those were connected to the RF machine and 3 minutes of cooled radiofrequency ablation energy at 60? centigrade was applied to the targets.? upon completion of the energy application the cannulas were removed and sterile Band-Aids were applied. ? Patient tolerated procedure well she was awakened and transferred to PACU for recovery she recovered uneventfully and went home without immediate complications.
== END 2021-03-17 14:26 | disposition home or self-care (01) ==
PROVIDERS: Nurse Practitioner; PCP General Practice; Visit Provider Anesthesiology
PROC: (CPT 64624; principal; 2021-03-17 12:20)
DX: M17.11 Unilateral primary osteoarthritis, right knee (principal); M25.561 Pain in right knee; M54.50 Low back pain, unspecified; F31.9 Bipolar disorder, unspecified; F43.10 Post-traumatic stress disorder, unspecified; T42.8X2A Poisoning by antiparkinsonism drugs and other central muscle-tone depressants, intentional self-harm, initial encounter; Y92.9 Unspecified place or not applicable; F10.10 Alcohol abuse, uncomplicated; F14.10 Cocaine abuse, uncomplicated; F12.90 Cannabis use, unspecified, uncomplicated; F17.210 Nicotine dependence, cigarettes, uncomplicated; I10 Essential (primary) hypertension; Z88.0 Allergy status to penicillin; Z88.2 Allergy status to sulfonamides; Z88.8 Allergy status to other drugs, medicaments and biological substances
CPT/HCPCS: 64624; 80307; 81025; J2250; J3300; Q9967

== ENCOUNTER 2021-03-24 16:06 | Inpatient (IN) | payer MEDICARE, SELFPAY ==
[2021-03-24 16:13] VITALS: BP 136/92; PULSE 84; RESP 18; O2SAT 98
--- NOTE | 2021-03-24 17:53 | PM.EVENT ---
Event Note Date of Service: 03/24/21 Event Note: Admission Ordering Notation: Pt reports she is not taking Nystatin, Suboxone, Abilify, Ambien, Klonopin, Trazodone. She reports allergy to Acyclovir and this was entered under allergy. Terbinafine not on formulary-pt will need to ask family if her dosing may be brought from home Last Invega Ahmet reported 01/31/21 234 mg 1.5 ml Prazosin, Valproate, Flexeril, Albuterol, Levothyroxine, Omeprazole, Lisinopril, Gabapentin ordered
[2021-03-24 19:58] VITALS: BP 131/65; PULSE 92
[2021-03-24] MEDS: Ibuprofen 600 MG TABLET PO (20:00)
[2021-03-24] MEDS: HaloperidoL 5 MG TABLET PO (20:00)
[2021-03-24] MEDS: diphenhydrAMINE HCL 25 MG TABLET 50 MG PO (20:00)
[2021-03-24] MEDS: LORazepam 1 MG TABLET PO (20:00)
[2021-03-24] MEDS: Prazosin HCL 5 MG CAPSULE PO (20:00)
[2021-03-24] MEDS: Divalproex Sodium 500 MG TABLET.DR PO (20:00)
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
--- NOTE | 2021-03-24 22:19 | PC.ADMIT ---
45 y.o. female admitted on CV from [facility] for psychiatric evaluation. Pt is known to care team. Per crisis report: Pts daughter contacted crisis d/t Pt. missing overnight and had concerns that she would elope again. Pts daughter reports that Pt was making SI/HI statements. Pt noted to be delusional, AH, labile mood, and HI to pour gasoline on anyone and everyone. Pt reports that Ceceliapietro Akers told her to throw out her phone somewhere. On Admit: Pt A&O, anxious, delusional, labile and inappropriately laughing. Pt noted to be responding to internal stimuli and laughing randomly. Pt presents with disorganized thinking and reporting the she is in a divorce with an automated system with a real asshole . Pt reports that she is in a relationship with Joel but it is a secrete and he is not real . Pt reports that if she sees him she will know. When asked bout SI, HI, AVH assessment Pt reports no and starts to laugh. PMHx: HTN. Gastric Ulcer, Migraines, GERD, Herniated disk/chronic back pain,Ankle Surgery 2019. Orders obtained. Pt on 15 minute safety checks.
[2021-03-24] MEDS: Nicotine Polacrilex 2 MG GUM BUCCAL (23:19)
[2021-03-25] MEDS: LORazepam 1 MG TABLET PO ×3 (02:38→14:09)
[2021-03-25] MEDS: Nicotine Polacrilex 2 MG GUM BUCCAL ×3 (02:41→20:25)
[2021-03-25] MEDS: Ibuprofen 600 MG TABLET PO ×2 (02:42→18:34)
[2021-03-25] MEDS: Omeprazole 20 MG CAPSULE.DR PO (05:55)
[2021-03-25] MEDS: Levothyroxine Sodium 25 MCG TABLET PO (05:55)
[2021-03-25 08:25] VITALS: BP 153/94; PULSE 107; RESP 18; TEMP 36.5; O2SAT 97
[2021-03-25] MEDS: diphenhydrAMINE HCL 25 MG TABLET 50 MG PO (08:28)
[2021-03-25] MEDS: lisinopriL 5 MG TABLET PO (08:28)
[2021-03-25] MEDS: HaloperidoL 5 MG TABLET PO ×2 (08:28→14:09)
[2021-03-25] MEDS: Divalproex Sodium 500 MG TABLET.DR PO ×2 (08:28→20:17)
--- NOTE | 2021-03-25 08:50 | PC.NURSE ---
At this time pt is declining a flu shot.
[2021-03-25 09:11] LABS: Cholesterol 164 mg/dL; HDL Cholesterol 48 mg/dL; LDL Cholesterol Calculated 100 mg/dl; Triglycerides 80 mg/dL
[2021-03-25 09:14] LABS: Estimated Average Glucose 82 mg/dL; Hemoglobin A1c % 4.5 %
[2021-03-25 09:32] LABS: Free T4 (Free Thyroxine) 0.96 ng/dL (0.71-1.85); Thyroid Stimulating Hormone 0.84 uIU/mL (0.32-4.0)
[2021-03-25 10:08] LABS: Folate 13.5 ng/mL (> or = 4.0); Vitamin B12 691 pg/mL (200-900)
--- NOTE | 2021-03-25 13:45 | P.CONHOSP_ITS ---
History of Present Illness Data of Consult Service Date: 03/25/21 Requesting physician: [facility] Psychiatry Primary Care Provider: Maddie Kim MD HPI Reason for consult: Medical H+P Per admitting psychiatrist: Atiya is a 45-year-old female who carries a dx of Bipolar I disorder. Pt presented to [facility] ED on 03/23/21 by ambulance for SI/HI. Per EMS, pt threatened to harm her neighbors this morning, stated ?If I knew how to build a bomb, I would do it. If I had a gun in my house, I would do it to myself.? Her daughter had called [facility] to request an assessment due to her mom not coming home over the night. Per crisis eval, daughter stated that last night, pt threw her phone somewhere in [place] because Joel Akers told her to. When she returned, pt made vague SI statements of It would be better if I wasn't here. During crisis eval, pt observed to be self-dialoguing, laughing inappropriately, and intermittently tearful. She last drank a pint of vodka at 7am on 03/23/21. S he was seen at [facility] ED a week ago and diagnosed with UTI but did not take antibiotics, however her urinalysis on 03/23/21 was negative. Has been non- adherent with psych medications since previous discharge from [facility] on 01/05/21 and has not taken her suboxone in 3 days.? Pt recently admitted to [facility] on 12/31/20-01/05/21. During this admission patient was continued on depakote ER, Invega Sustenna, and she was restarted on Suboxone 4/1 mg t.i.d. p.r.n. for pain, which was effective.?? Most recent medication regimen: -Patient was last on suboxone 8/2 mg 1.5 tabs QD 01/28/21 from [facility]. -Depakote 500 mg BID (VPA 18.2 on 01/04/21, per discharge summary ?history of gastric bypass surgery, her GI surgeon told her that long-acting medications typically will not work well for her and she should be on immediate release; patient said that despite that her regimen has remained the same and this explains why her levels are always low.? Of note, patient had been taking her Depakote consistently during her admission and her levels were still low?), levothyroxine (last filled 01/04/21), lisinopril 5 mg (last filled 01/04/21), prazosin 5 mg QHS (last filled 01/04/21) -Trial on Ambien (2009), klonopin (2009), ronda I evaluated the pt this evening and upon interview she reports ?There will never be enough medication to cure my broken heart.? She presents as labile during intake, intermittently laughing uncontrollably and reverting to sad, dysphoric demeanor. Per pt, she feels ?very lonely? and has been having passive SI thoughts with plan to jump off a bridge, however denies intent and says ?I dont really wanna , I just wanna be left alone.? Says she threw away her phone because she doesnt want people calling her and she is ?disappointed at human behavior.? Somewhat grandiose, says she wants to start dating and ?I have a dream to fall in love and be happy and have a family.? Pt reports she stopped her psych meds after discharge from [facility] ?because I was happy,? however has been feeling more depressed x two weeks. States she has not been sleeping x a few days, at best will sleep ?a couple hours, like always.? She denies missing sleep, ?I feel pretty good right now, I could go outside and throw a couple baseballs around.? Says she drank a half a pint of vodka yesterday morning because she thought ?it would put me to sleep but it didnt work.? She denies daily alcohol use but admits to using cocaine for pain. Says she stopped taking her suboxone because ?I got tired of eating nasty stuff? and ?it doesnt work anyway.? She has also been using cannabis and? ?blew 200 dollars yesterday? at the dispensary, however then left her cannabis, wallet, and keys at the bus stop. Says she wants to re-start her psych meds from previous [facility] admission. States gabapentin helps with pain and prazosin helps with nightmares and hyperarousal. Denies AH. Currently denies SI/SIB, says she feels safe.? Past Psychiatric History: -Has OP services at [facility]; P sychiatric Provider is Marcos Pritchard -Recent crisis eval 03/15/21 at [facility] ED and per crisis note, ?Atiya was cleared via [facility] psych Neeru Chew APRN. Atiya has received treatment in place including being administered Invega while in ED. She continued to present with manic symptoms but this was determined to be close to baseline and she was discharged by psychiatry to current providers.? -Recent IPLOC at [facility] on 03/03/21 for manic presentation, found in [employer]s parking lot.? -Hx of suicide attempts via OD, last was 12/30/20 after she took 25 tablets of baclofen 10mg each. She required intubation in ICU and then was admitted for IPLOC at [facility]. Hx of IPLOC at [facility] on 08/12/2020. -Hx of presenting to crisis reporting SI, depression, and sonya. Medical Evaluation Reviewed: Hospitalist Yasmineal Pending PMHx as below. Currently denies fever, chills, cough, dyspnea, chest pain, palpitations, abd pain, nausea, or vomiting. Review of Systems Verdana 4l Review of Systems: Yes all other systems are reviewed and Verdana 4d are negative [facility] Medical History Alcohol abuse Baclofen overdose Bipolar 1 disorder, manic, moderate Cocaine abuse Hypertension Psychiatric diagnosis PTSD (post-traumatic stress disorder) Substance abuse Pertinent family history: mother- DM2 Surgical History History of ankle surgery History of cholecystectomy Social History Household Members: Children Household Members Other:: lives by self Housing: Apartment Do you presently have visiting nurse or other home services: No Unable to assess alcohol history related to: Unknown Alcohol intake: unknown Patient Tobacco Use Status: Current everyday Tobacco user Tobacco use type: Cigarette Cigarette Packs Per Day: 1 Cigarettes Per Day: 20.0 Smoked in Last 30 Days: Yes e-Cigarette/Vaping Use: Currently Using Patient Interested in Nicotine Replacement: No Patient Given Instructions on How to Stop Smoking: No Second Hand Smoke Exposure: No Use of substances other than those prescribed or required for medical reasons: Unknown Substance Use Type: Marijuana Currently Displaying Signs/Symptoms of Drug Intoxication Withdrawal: No Other Past Substance Use Problem:: Pt reported that she does not use. Per labs Pt +MJ Have you been hit, kicked, punched, or otherwise hurt by someone within the past year? If so, by whom?: No Do you feel safe in your current relationship?: Yes Is there a partner from a previous relationship who is making you feel unsafe now?: No Advance Directives: Yes Advance Directives on File: Yes Advance Directives Date on File: 03/18/21 Do you have thoughts of harming others: None Do you have a plan to hurt others: No Plan Recently lost weight without trying: No Nutrition Risks: No Nutritional Risk Patient : No : No Poor oral hygiene: No service: No 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al status: unemployed 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 handed/ [employer] Sexual orientation: Bisexual Meds Allergies Allergy/AdvReac Type Severity Reaction Status Date / Time hydromorphone Allergy Intermediate Rash Verified 03/11/21 12:32 acyclovir Allergy Unknown Unknown Verified 03/24/21 17:46 insect venom Allergy Unknown UNKNOWN Verified 01/24/21 15:32 [INSECT BITES] sulfamethoxazole Allergy Unknown Anaphylaxis Verified 03/17/21 11:12 [From BACTRIM] trimethoprim [From Allergy Unknown Anaphylaxis Verified 03/17/21 11:12 BACTRIM] Active Medications: Current Medications Acetaminophen (Acetaminophen 325 Mg Tablet) 650 mg PO Q6H PRN PRN Reason: Headache/Pain Mild Scale (1-3) Al Hydroxide/Mg Hydroxide (Magnesium Hydrox/Alum Hydrox 30 Ml Oral.Susp) 30 ml PO Q6H PRN PRN Reason: Heartburn/Nausea Albuterol Sulfate (Albuterol Sulfate 90 Mcg 8 Gm Inhaler) 2 puff INHALE RQ6H PRN PRN Reason: wheeze Cyclobenzaprine HCl (Cyclobenzaprine Hcl 5 Mg Tablet) 5 mg PO DAILY PRN PRN Reason: spasm Diphenhydramine HCl (Diphenhydramine Hcl 25 Mg Tablet) 50 mg PO Q4H PRN PRN Reason: agitation Last Admin: 03/25/21 08:28 Dose: 50 mg Documented by: Divalproex Sodium (Divalproex Sodium 500 Mg Tablet.) 500 mg PO BID [facility] Last Admin: 03/25/21 08:28 Dose: 500 mg Documented by: Docusate Sodium (Docusate Sodium 100 Mg Capsule) 100 mg PO BID PRN PRN Reason: Constipation Gabapentin (Gabapentin 100 Mg Capsule) 100 mg PO TID PRN PRN Reason: neuropathic pain Haloperidol (Haloperidol 5 Mg Tablet) 5 mg PO Q4H PRN PRN Reason: psychotic agitation Last Admin: 03/25/21 08:28 Dose: 5 mg Documented by: Hydroxyzine HCl (Hydroxyzine Hcl 25 Mg Tablet) 25 mg PO BEDTIME PRN PRN Reason: Anxiety Ibuprofen (Ibuprofen 600 Mg Tablet) 600 mg PO Q6H PRN PRN Reason: Pain, Mild (Pain Scale 1-3) Last Admin: 03/25/21 02:42 Dose: 600 mg Documented by: Levothyroxine Sodium (Levothyroxine Sodium 25 Mcg Tablet) 25 mcg PO DAILY@0600 [facility] Last Admin: 03/25/21 05:55 Dose: 25 mcg Documented by: Lisinopril (Lisinopril 5 Mg Tablet) 5 mg PO DAILY [facility]; Protocol Last Admin: 03/25/21 08:28 Dose: 5 mg Documented by: Lorazepam (Lorazepam 1 Mg Tablet) 1 mg PO Q4H PRN PRN Reason: agitation Last Admin: 03/25/21 08:28 Dose: 1 mg Documented by: Magnesium Hydroxide (Milk Of Magnesia 30 Ml Oral.Susp) 30 ml PO DAILY PRN PRN Reason: Constipation Nicotine Polacrilex (Nicotine Polacrilex 2 Mg Gum) 2 mg BUCCAL Q2H PRN PRN Reason: Nicotine Cravings Last Admin: 03/25/21 02:41 Dose: 2 mg Documented by: Omeprazole (Omeprazole 20 Mg Capsule.) 20 mg PO DAILY@0630 [facility] Last Admin: 03/25/21 05:55 Dose: 20 mg Documented by: Prazosin HCl (Prazosin Hcl 5 Mg Capsule) 5 mg PO BEDTIME [facility]; Protocol Last Admin: 03/24/21 20:00 Dose: 5 mg Documented by: Trazodone HCl (Trazodone Hcl 50 Mg Tablet) 50 mg PO BEDTIME PRN PRN Reason: Insomnia Home Medications Medication Instructions Recorded Confirmed Last Taken Type Narcan Prefilled 4 mg INTRANASAL 01/01/21 03/24/21 Unknown History ONCE PRN albuterol sulfate 2 puff 03/24/21 03/24/21 Unknown History 90 mcg/actuation INHALATION QID PRN aerosol inhaler cyclobenzaprine 5 1 tab PO DAILY 03/24/21 03/24/21 Unknown History mg tablet PRN terbinafine HCl 1 tab PO DAILY 03/24/21 03/24/21 03/24/21 History 250 mg tablet 0050 Physical Exam Verdana 4l Vital Signs and Narrative: Verdana 4d Verdana 4d Vital Signs: Verdana 4d Verdana 4Bd Last Vital Signs Verdana 4d Steel Sampler New 4d Steel Sampler New 4d Temp 97.7 F 03/25/21 08:25 Steel Sampler New 4d Pulse 107 H 03/25/21 08:25 Steel Sampler New 4d Resp 18 03/25/21 08:25 BP 153/94 H 03/25/21 08:25 Pulse Ox 97 03/25/21 08:25 Gen: in no acute distress HEENT: sclera anicteric, moist mucus membranes Neck: supple Lungs: clear to auscultation bilaterally Heart: regular rate and rhythm, no murmurs Abd: soft, non-tender, non-distended, obese Ext: no edema Skin: warm/well-perfused Neuro: alert and oriented x3, no focal findings Psych: appropriate affect Neuro: General: CN's II-XI intact bilaterally Results Labs Labs: Laboratory Results - last 24 hr 03/25/21 03/25/21 03/25/21 08:20 08:20 08:20 Estimat Average Glucose 82 Hemoglobin A1c % 4.5 Triglycerides 80 Cholesterol 164 LDL Cholesterol, Calc 100 HDL Cholesterol 48 Vitamin B12 691 Folate 13.5 TSH 0.84 Free T4 0.96 Assessment and Plan (1) Hypertension: Status: Acute Plan 45yo F with bipolar 1 disorder admitted to [facility] with decompensated sonya. She has been restarted on valproate and prazosin, with prns (hydroxyzine, trazodone, lorazepam, haloperidol). As for her medical conditions, continue levothyroxine for hypothyroidism, lisinopril for hypertension, omeprazole for PUD, and cyclobenzaprine prn back pain. Nicotine replacement for tobacco abuse, and counseling against cocaine abuse. Thank you for this consultation. We are signing off the case at this time. Please communicate with us if any new medical questions arise.
[2021-03-25] MEDS: Docusate Sodium 100 MG CAPSULE PO (14:09)
--- NOTE | 2021-03-25 16:22 | P.PNPSI_ITS ---
Subjective Subjective Date of Service: 03/25/21 Reason For Visit: Bipolar Disorder PTSD Interim History: Patient seen and discussed with team. Patient evaluated this evening and upon interview she reports Im right where im supposed to be. Says her medications are fine. Sleep is improving, I think I slept good, I just woke up a couple times. Still upset about losing her wallet. Pt continues to present with manic sx, labile. She cried a couple times today, saying I feel like I messed up a lot of things I shouldn't be dealing with, upset that she got involved other people?s business at her apartment and that she is not getting along with her mom. Now feels uncomfortable going back to her apartment, says I have boundary problems. In the milieu, patient is safe in behavior. Denies SI/SIB/HI upon inquiry. Denies irritability or assaultive ideation. Says she feels safe. Medication Compliance: Yes Side effects from medications: No Attending Groups: Intermittent Review of Systems Acute medical concerns: No Medical Review of Systems: unchanged Mental Status Exam Mental Status Exam Narrative: A&O. In hospital attire, overweight, unkempt appearance. Good eye contact, inattentive. No Tics or Tremors. No abnormal involuntary movements. Labile, cooperative, able to engage in conversation but jumping from topic to topic. Non-pressured speech, spontaneous with regular rate and rhythm, normal volume and prosody. No prolonged speech latency or dysarthria. Mood is alright,? affect is labile. Denies SI/SIB/HI upon inquiry. Denies A/VH, has grandiose ideations. Thoughts are tangential. No known cognitive or memory impairment. Insight/ Judgment limited but adequate. Diagnostics Vital Signs (24Hr): Vital Signs - 24 hr 03/24/21 19:58 03/25/21 08:25 Temperature 97.7 F Pulse Rate 92 107 H Respiratory Rate 18 Blood Pressure 131/65 153/94 H Pulse Oximetry 97 Labs Labs: Laboratory Results - last 48 hr 03/25/21 03/25/21 03/25/21 08:20 08:20 08:20 Estimat Average Glucose 82 Hemoglobin A1c % 4.5 Triglycerides 80 Cholesterol 164 LDL Cholesterol, Calc 100 HDL Cholesterol 48 Vitamin B12 691 Folate 13.5 TSH 0.84 Free T4 0.96 Medications Medications Current Medications Acetaminophen (Acetaminophen 325 Mg Tablet) 650 mg PO Q6H PRN PRN Reason: Headache/Pain Mild Scale (1-3) Al Hydroxide/Mg Hydroxide (Magnesium Hydrox/Alum Hydrox 30 Ml Oral.Susp) 30 ml PO Q6H PRN PRN Reason: Heartburn/Nausea Albuterol Sulfate (Albuterol Sulfate 90 Mcg 8 Gm Inhaler) 2 puff INHALE RQ6H PRN PRN Reason: wheeze Cyclobenzaprine HCl (Cyclobenzaprine Hcl 5 Mg Tablet) 5 mg PO DAILY PRN PRN Reason: spasm Diphenhydramine HCl (Diphenhydramine Hcl 25 Mg Tablet) 50 mg PO Q4H PRN PRN Reason: agitation Last Admin: 03/25/21 08:28 Dose: 50 mg Documented by: Divalproex Sodium (Divalproex Sodium 500 Mg Tablet.) 500 mg PO BID [facility] Last Admin: 03/25/21 08:28 Dose: 500 mg Documented by: Docusate Sodium (Docusate Sodium 100 Mg Capsule) 100 mg PO BID PRN PRN Reason: Constipation Gabapentin (Gabapentin 100 Mg Capsule) 100 mg PO TID PRN PRN Reason: neuropathic pain Haloperidol (Haloperidol 5 Mg Tablet) 5 mg PO Q4H PRN PRN Reason: psychotic agitation Last Admin: 03/25/21 14:09 Dose: 5 mg Documented by: Hydroxyzine HCl (Hydroxyzine Hcl 25 Mg Tablet) 25 mg PO BEDTIME PRN PRN Reason: Anxiety Ibuprofen (Ibuprofen 600 Mg Tablet) 600 mg PO Q6H PRN PRN Reason: Pain, Mild (Pain Scale 1-3) Last Admin: 03/25/21 02:42 Dose: 600 mg Documented by: Levothyroxine Sodium (Levothyroxine Sodium 25 Mcg Tablet) 25 mcg PO DAILY@0600 [facility] Last Admin: 03/25/21 05:55 Dose: 25 mcg Documented by: Lisinopril (Lisinopril 5 Mg Tablet) 5 mg PO DAILY [facility]; Protocol Last Admin: 03/25/21 08:28 Dose: 5 mg Documented by: Lorazepam (Lorazepam 1 Mg Tablet) 1 mg PO Q4H PRN PRN Reason: agitation Last Admin: 03/25/21 14:09 Dose: 1 mg Documented by: Magnesium Hydroxide (Milk Of Magnesia 30 Ml Oral.Susp) 30 ml PO DAILY PRN PRN Reason: Constipation Nicotine Polacrilex (Nicotine Polacrilex 2 Mg Gum) 2 mg BUCCAL Q2H PRN PRN Reason: Nicotine Cravings Last Admin: 03/25/21 02:41 Dose: 2 mg Documented by: Omeprazole (Omeprazole 20 Mg Capsule.) 20 mg PO DAILY@0630 [facility] Last Admin: 03/25/21 05:55 Dose: 20 mg Documented by: Prazosin HCl (Prazosin Hcl 5 Mg Capsule) 5 mg PO BEDTIME [facility]; Protocol Last Admin: 03/24/21 20:00 Dose: 5 mg Documented by: Trazodone HCl (Trazodone Hcl 50 Mg Tablet) 50 mg PO BEDTIME PRN PRN Reason: Insomnia Allergies Allergies Allergy/AdvReac Type Severity Reaction Status Date / Time hydromorphone Allergy Intermediate Rash Verified 03/11/21 12:32 acyclovir Allergy Unknown Unknown Verified 03/24/21 17:46 insect venom Allergy Unknown UNKNOWN Verified 01/24/21 15:32 [INSECT BITES] sulfamethoxazole Allergy Unknown Anaphylaxis Verified 03/17/21 11:12 [From BACTRIM] trimethoprim [From Allergy Unknown Anaphylaxis Verified 03/17/21 11:12 BACTRIM] Assessment & Plan Assessment & Plan (1) Hypertension: Status: Acute Code(s): I10 - Essential (primary) hypertension Plan Atiya is a 45-year-old female who carries a dx of Bipolar I disorder. Pt is known to [facility], has hx of manic episodes with sx of hyposomnia and impulsivity. Plan: Will re-start previous psych med regimen due to reported benefit and obtain VPA level. Pt says she would like to resume VNA services upon discharge and have a locked box for her meds, as she has a hx of overusing medications for sleep and pain. She is not requesting to re-start suboxone, will monitor need as she states she was on this for pain. Denies recent opioid abuse, hx of abusing percocet. Monitor response to medications. Monitor for safety in the milieu. Discharge on stabilization. Patient seen. Chart reviewed. Discussed with team. Obtain collateral contact info as needed 03/25/21: Pt continues to present with labile affect, sleep improved, will continue med regimen and monitor for benefit. I spent minutes with the patient and/or on the patient floor today, greater than?50% of which was spent counseling/coordinating care. Patient educated on: medication risk/benefits Informed Consent: understands Reason for contiued inpatient stay Substantial Risk for: inability to function, rapid decompensation and med/psych decompensation
[2021-03-25 18:00] VITALS: BP 138/82; PULSE 91
[2021-03-25] MEDS: Prazosin HCL 5 MG CAPSULE PO (20:18)
[2021-03-26] MEDS: Nicotine Polacrilex 2 MG GUM BUCCAL ×6 (01:55→21:36)
[2021-03-26] MEDS: Omeprazole 20 MG CAPSULE.DR PO (06:22)
[2021-03-26] MEDS: Levothyroxine Sodium 25 MCG TABLET PO (06:22)
[2021-03-26] MEDS: Divalproex Sodium 500 MG TABLET.DR PO ×2 (08:27→20:01)
[2021-03-26] MEDS: lisinopriL 5 MG TABLET PO (08:27)
[2021-03-26 08:28] VITALS: BP 141/95; PULSE 88; RESP 16; TEMP 36.6; O2SAT 97
[2021-03-26] MEDS: Ibuprofen 600 MG TABLET PO (09:30)
[2021-03-26] MEDS: diphenhydrAMINE HCL 25 MG TABLET 50 MG PO ×2 (13:04→21:35)
[2021-03-26] MEDS: Acetaminophen 325 MG TABLET 650 MG PO (18:03)
--- NOTE | 2021-03-26 18:34 | HO.PSYCHPN ---
Subjective Subjective Date of Service: 03/26/21 Reason For Visit: Bipolar Disorder PTSD Interim History: Patient seen and discussed with team. Patient evaluated this morning and upon interview he reports she is feeling better, slept all night. Likes her medications. Asks for klonopin but discussed abuse potential. Says vistaril 25 mg doesnt even tickle my stomach. In the past used Thorazine 50 mg prn for anxiety and agitation but does not want this due to sedation. Says seroquel prn will make me a huge beast. Willing to trial an increase in vistaril. Denies stressors other than losing her wallet and her neighbors. No nightmares. Still snoring, I need sleep apnea tests again. Eating okay, showered this morning. Laughing incongruently, labile. Last administered Invega sustenna on the and wants to stay on it. Interested in obtainingVNA services. In the milieu, patient is safe but intrusive in behavior. Denies SI/SIB/HI upon inquiry. Denies irritability or assaultive ideation. Says she feels safe. Medication Compliance: Yes Side effects from medications: No Attending Groups: Yes Review of Systems Acute medical concerns: No Medical Review of Systems: unchanged Mental Status Exam Mental Status Exam Narrative: A&O. In hospital attire, overweight, unkempt appearance. Good eye contact, inattentive. No Tics or Tremors. No abnormal involuntary movements. Labile, cooperative, able to engage in conversation but jumping from topic to topic. Non-pressured speech, spontaneous with regular rate and rhythm, normal volume and prosody. No prolonged speech latency or dysarthria. Mood is okay,? affect is labile, laughing uncontrollably at times. Denies SI/SIB/HI upon inquiry. Denies A/VH, has grandiose ideations. Thoughts are tangential. No known cognitive or memory impairment. Insight/ Judgment limited but adequate. Diagnostics Vital Signs (24Hr): Vital Signs - 24 hr 03/27/21 18:00 03/28/21 06:00 Temperature 97.3 F Pulse Rate 70 91 Respiratory Rate 18 Blood Pressure 114/71 148/104 H Pulse Oximetry 98 Labs Labs: Laboratory Results - last 48 hr 03/28/21 08:11 Valproic Acid 29.6 L Medications Medications Current Medications Acetaminophen (Acetaminophen 325 Mg Tablet) 650 mg PO Q6H PRN PRN Reason: Headache/Pain Mild Scale (1-3) Last Admin: 03/26/21 18:03 Dose: 650 mg Documented by: Al Hydroxide/Mg Hydroxide (Magnesium Hydrox/Alum Hydrox 30 Ml Oral.Susp) 30 ml PO Q6H PRN PRN Reason: Heartburn/Nausea Albuterol Sulfate (Albuterol Sulfate 90 Mcg 8 Gm Inhaler) 2 puff INHALE RQ6H PRN PRN Reason: wheeze Cyclobenzaprine HCl (Cyclobenzaprine Hcl 5 Mg Tablet) 5 mg PO DAILY PRN PRN Reason: spasm Diphenhydramine HCl (Diphenhydramine Hcl 25 Mg Tablet) 50 mg PO Q4H PRN PRN Reason: agitation Last Admin: 03/27/21 08:01 Dose: 50 mg Documented by: Divalproex Sodium (Divalproex Sodium 500 Mg Tablet.) 500 mg PO BID [facility] Last Admin: 03/28/21 08:51 Dose: 500 mg Documented by: Docusate Sodium (Docusate Sodium 100 Mg Capsule) 100 mg PO BID PRN PRN Reason: Constipation Last Admin: 03/27/21 10:02 Dose: 100 mg Documented by: Gabapentin (Gabapentin 100 Mg Capsule) 100 mg PO TID PRN PRN Reason: neuropathic pain Haloperidol (Haloperidol 5 Mg Tablet) 5 mg PO Q4H PRN PRN Reason: psychotic agitation Last Admin: 03/27/21 14:47 Dose: 5 mg Documented by: Hydroxyzine HCl (Hydroxyzine Hcl 50 Mg Tablet) 50 mg PO Q6H PRN PRN Reason: Anxiety Last Admin: 03/27/21 10:02 Dose: 50 mg Documented by: Ibuprofen (Ibuprofen 600 Mg Tablet) 600 mg PO Q6H PRN PRN Reason: Pain, Mild (Pain Scale 1-3) Last Admin: 03/28/21 04:47 Dose: 600 mg Documented by: Levothyroxine Sodium (Levothyroxine Sodium 25 Mcg Tablet) 25 mcg PO DAILY@0600 [facility] Last Admin: 03/28/21 04:49 Dose: 25 mcg Documented by: Lisinopril (Lisinopril 5 Mg Tablet) 5 mg PO DAILY [facility]; Protocol Last Admin: 03/28/21 08:51 Dose: 5 mg Documented by: Lorazepam (Lorazepam 1 Mg Tablet) 1 mg PO Q4H PRN PRN Reason: agitation Last Admin: 03/27/21 14:47 Dose: 1 mg Documented by: Magnesium Hydroxide (Milk Of Magnesia 30 Ml Oral.Susp) 30 ml PO DAILY PRN PRN Reason: Constipation Nicotine Polacrilex (Nicotine Polacrilex 2 Mg Gum) 4 mg BUCCAL Q2H PRN PRN Reason: Nicotine Cravings Last Admin: 03/28/21 07:22 Dose: 4 mg Documented by: Omeprazole (Omeprazole 20 Mg Capsule.) 20 mg PO DAILY@0630 [facility] Last Admin: 03/28/21 04:49 Dose: 20 mg Documented by: Prazosin HCl (Prazosin Hcl 5 Mg Capsule) 5 mg PO BEDTIME [facility]; Protocol Last Admin: 03/27/21 20:50 Dose: 5 mg Documented by: Trazodone HCl (Trazodone Hcl 50 Mg Tablet) 50 mg PO BEDTIME PRN PRN Reason: Insomnia Trolamine Salicylate/Aloe Vera (Trolamine Salicylate 10%/Aloe Cream 35.4 Gm) 1 appl TOPICAL QID PRN PRN Reason: arthritis pain knee Last Admin: 03/28/21 07:22 Dose: 1 appl Documented by: Allergies Allergies Allergy/AdvReac Type Severity Reaction Status Date / Time hydromorphone Allergy Intermediate Rash Verified 03/11/21 12:32 acyclovir Allergy Unknown Unknown Verified 03/24/21 17:46 insect venom [INSECT BITES] Allergy Unknown UNKNOWN Verified 01/24/21 15:32 sulfamethoxazole Allergy Unknown Anaphylaxis Verified 03/17/21 11:12 [From BACTRIM] trimethoprim [From BACTRIM] Allergy Unknown Anaphylaxis Verified 03/17/21 11:12 Assessment & Plan Assessment & Plan (1) Hypertension: Status: Acute Code(s): I10 - Essential (primary) hypertension Plan Atiya is a 45-year-old female who carries a dx of Bipolar I disorder. Pt is known to [facility] [place] [facility], has hx of manic episodes with sx of hyposomnia and impulsivity. Plan: Will re-start previous psych med regimen due to reported benefit and obtain VPA level. Pt says she would like to resume VNA services upon discharge and have a locked box for her meds, as she has a hx of overusing medications for sleep and pain. She is not requesting to re-start suboxone, will monitor need as she states she was on this for pain. Denies recent opioid abuse, hx of abusing percocet. Monitor response to medications. Monitor for safety in the milieu. Discharge on stabilization. Patient seen. Chart reviewed. Discussed with team. Obtain collateral contact info as needed 03/25/21: Pt continues to present with labile affect, sleep improved, will continue med regimen and monitor for benefit. 03/26/21: Will start vistaril 50 mg Q6H PRN for anxiety, agitation I spent minutes with the patient and/or on the patient floor today, greater than?50% of which was spent counseling/coordinating care. Reason for contiued inpatient stay Substantial Risk for: inability to function, rapid decompensation and med/psych decompensation
[2021-03-26 19:45] VITALS: BP 131/90; PULSE 73
[2021-03-26] MEDS: Prazosin HCL 5 MG CAPSULE PO (20:01)
[2021-03-26] MEDS: HaloperidoL 5 MG TABLET PO (21:35)
[2021-03-26] MEDS: LORazepam 1 MG TABLET PO (21:35)
[2021-03-27] MEDS: Nicotine Polacrilex 2 MG GUM BUCCAL ×2 (01:42→10:02)
[2021-03-27] MEDS: Levothyroxine Sodium 25 MCG TABLET PO (06:35)
[2021-03-27] MEDS: Omeprazole 20 MG CAPSULE.DR PO (06:35)
[2021-03-27] MEDS: LORazepam 1 MG TABLET PO ×2 (08:00→14:47)
[2021-03-27] MEDS: HaloperidoL 5 MG TABLET PO ×2 (08:00→14:47)
[2021-03-27] MEDS: Divalproex Sodium 500 MG TABLET.DR PO ×2 (08:00→20:49)
[2021-03-27] MEDS: diphenhydrAMINE HCL 25 MG TABLET 50 MG PO (08:01)
[2021-03-27] MEDS: lisinopriL 5 MG TABLET PO (08:01)
[2021-03-27 08:18] VITALS: BP 113/72; PULSE 78; RESP 18; TEMP 36.6; O2SAT 97
[2021-03-27] MEDS: Docusate Sodium 100 MG CAPSULE PO (10:02)
[2021-03-27] MEDS: hydrOXYzine HCL 50 MG TABLET PO (10:02)
--- NOTE | 2021-03-27 14:31 | HO.PSYCHPN ---
Subjective Subjective Date of Service: 03/27/21 Reason For Visit: Bipolar Disorder PTSD Interim History: Patient seen and discussed with team. Patient evaluated this morning and upon interview she is labile, tearful, states I'm tired of this shit already. Has multiple complaints, i.e. her knee hurts, daughter has a fucking attitude. She still doesn't want to go home because of my fucking neighbors and people want to kill me. States her neighbors are drug dealers and i fight with them all the time. Says im exhausted, im in pain. When asked what will help, pt states a big fat percocet or probably Dilaudid. Says cbd cream helps with pain. Also wants a cigarette. Encouraged her to utilize PRN vistaril. Sleep is improved. In the milieu, patient is labile but safe in behavior. Denies SI/SIB/HI upon inquiry. Says she feels safe. Medication Compliance: Yes Side effects from medications: No Attending Groups: Intermittent Review of Systems Acute medical concerns: No Medical Review of Systems: unchanged Mental Status Exam Mental Status Exam Narrative: A&O. In hospital attire, overweight, unkempt appearance. Good eye contact, inattentive. No Tics or Tremors. No abnormal involuntary movements. Labile, cooperative, able to engage in conversation but jumping from topic to topic. Non-pressured speech, spontaneous with regular rate and rhythm, normal volume and prosody. No prolonged speech latency or dysarthria. Mood is depressed,? affect is labile, tearful. Denies SI/SIB/HI upon inquiry. Denies A/VH, has grandiose ideations. Thoughts are tangential. No known cognitive or memory impairment. Insight/ Judgment limited but adequate. Diagnostics Vital Signs (24Hr): Vital Signs - 24 hr 03/26/21 19:45 03/27/21 08:18 Temperature 97.9 F Pulse Rate 73 78 Respiratory Rate 18 Blood Pressure 131/90 H 113/72 Pulse Oximetry 97 Medications Medications Current Medications Acetaminophen (Acetaminophen 325 Mg Tablet) 650 mg PO Q6H PRN PRN Reason: Headache/Pain Mild Scale (1-3) Last Admin: 03/26/21 18:03 Dose: 650 mg Documented by: Al Hydroxide/Mg Hydroxide (Magnesium Hydrox/Alum Hydrox 30 Ml Oral.Susp) 30 ml PO Q6H PRN PRN Reason: Heartburn/Nausea Albuterol Sulfate (Albuterol Sulfate 90 Mcg 8 Gm Inhaler) 2 puff INHALE RQ6H PRN PRN Reason: wheeze Cyclobenzaprine HCl (Cyclobenzaprine Hcl 5 Mg Tablet) 5 mg PO DAILY PRN PRN Reason: spasm Diphenhydramine HCl (Diphenhydramine Hcl 25 Mg Tablet) 50 mg PO Q4H PRN PRN Reason: agitation Last Admin: 03/27/21 08:01 Dose: 50 mg Documented by: Divalproex Sodium (Divalproex Sodium 500 Mg Tablet.) 500 mg PO BID [facility] Last Admin: 03/27/21 08:00 Dose: 500 mg Documented by: Docusate Sodium (Docusate Sodium 100 Mg Capsule) 100 mg PO BID PRN PRN Reason: Constipation Last Admin: 03/27/21 10:02 Dose: 100 mg Documented by: Gabapentin (Gabapentin 100 Mg Capsule) 100 mg PO TID PRN PRN Reason: neuropathic pain Haloperidol (Haloperidol 5 Mg Tablet) 5 mg PO Q4H PRN PRN Reason: psychotic agitation Last Admin: 03/27/21 08:00 Dose: 5 mg Documented by: Hydroxyzine HCl (Hydroxyzine Hcl 50 Mg Tablet) 50 mg PO Q6H PRN PRN Reason: Anxiety Last Admin: 03/27/21 10:02 Dose: 50 mg Documented by: Ibuprofen (Ibuprofen 600 Mg Tablet) 600 mg PO Q6H PRN PRN Reason: Pain, Mild (Pain Scale 1-3) Last Admin: 03/26/21 09:30 Dose: 600 mg Documented by: Levothyroxine Sodium (Levothyroxine Sodium 25 Mcg Tablet) 25 mcg PO DAILY@0600 [facility] Last Admin: 03/27/21 06:35 Dose: 25 mcg Documented by: Lisinopril (Lisinopril 5 Mg Tablet) 5 mg PO DAILY [facility]; Protocol Last Admin: 03/27/21 08:01 Dose: 5 mg Documented by: Lorazepam (Lorazepam 1 Mg Tablet) 1 mg PO Q4H PRN PRN Reason: agitation Last Admin: 03/27/21 08:00 Dose: 1 mg Documented by: Magnesium Hydroxide (Milk Of Magnesia 30 Ml Oral.Susp) 30 ml PO DAILY PRN PRN Reason: Constipation Nicotine Polacrilex (Nicotine Polacrilex 2 Mg Gum) 4 mg BUCCAL Q2H PRN PRN Reason: Nicotine Cravings Omeprazole (Omeprazole 20 Mg Capsule.) 20 mg PO DAILY@0630 [facility] Last Admin: 03/27/21 06:35 Dose: 20 mg Documented by: Prazosin HCl (Prazosin Hcl 5 Mg Capsule) 5 mg PO BEDTIME [facility]; Protocol Last Admin: 03/26/21 20:01 Dose: 5 mg Documented by: Trazodone HCl (Trazodone Hcl 50 Mg Tablet) 50 mg PO BEDTIME PRN PRN Reason: Insomnia Allergies Allergies Allergy/AdvReac Type Severity Reaction Status Date / Time hydromorphone Allergy Intermediate Rash Verified 03/11/21 12:32 acyclovir Allergy Unknown Unknown Verified 03/24/21 17:46 insect venom [INSECT BITES] Allergy Unknown UNKNOWN Verified 01/24/21 15:32 sulfamethoxazole Allergy Unknown Anaphylaxis Verified 03/17/21 11:12 [From BACTRIM] trimethoprim [From BACTRIM] Allergy Unknown Anaphylaxis Verified 03/17/21 11:12 Assessment & Plan Assessment & Plan (1) Hypertension: Status: Acute Code(s): I10 - Essential (primary) hypertension Plan Atiya is a 45-year-old female who carries a dx of Bipolar I disorder. Pt is known to [facility] [place] M5, has hx of manic episodes with sx of hyposomnia and impulsivity. Plan: Will re-start previous psych med regimen due to reported benefit and obtain VPA level. Pt says she would like to resume VNA services upon discharge and have a locked box for her meds, as she has a hx of overusing medications for sleep and pain. She is not requesting to re-start suboxone, will monitor need as she states she was on this for pain. Denies recent opioid abuse, hx of abusing percocet. Monitor response to medications. Monitor for safety in the milieu. Discharge on stabilization. Patient seen. Chart reviewed. Discussed with team. Obtain collateral contact info as needed 03/25/21: Pt continues to present with labile affect, sleep improved, will continue med regimen and monitor for benefit. 03/26/21: Will start vistaril 50 mg Q6H PRN for anxiety, agitation 03/27/21: will trial aspercreme for c/o arthritis pain. Encouraged to utilize PRN vistaril. Will obtain VPA level. I spent minutes with the patient and/or on the patient floor today, greater than?50% of which was spent counseling/coordinating care. Reason for contiued inpatient stay Substantial Risk for: inability to function, rapid decompensation and med/psych decompensation
[2021-03-27] MEDS: Ibuprofen 600 MG TABLET PO (15:44)
[2021-03-27] MEDS: Nicotine Polacrilex 2 MG GUM 4 MG BUCCAL (15:45)
[2021-03-27 18:00] VITALS: BP 114/71; PULSE 70; TEMP 36.3
[2021-03-27] MEDS: Prazosin HCL 5 MG CAPSULE PO (20:50)
[2021-03-28] MEDS: Ibuprofen 600 MG TABLET PO (04:47)
[2021-03-28] MEDS: Levothyroxine Sodium 25 MCG TABLET PO (04:49)
[2021-03-28] MEDS: Omeprazole 20 MG CAPSULE.DR PO (04:49)
[2021-03-28 06:00] VITALS: BP 148/104; PULSE 91; RESP 18; O2SAT 98
[2021-03-28] MEDS: Nicotine Polacrilex 2 MG GUM 4 MG BUCCAL (07:22)
[2021-03-28] MEDS: lisinopriL 5 MG TABLET PO (08:51)
[2021-03-28] MEDS: Divalproex Sodium 500 MG TABLET.DR PO ×2 (08:51→19:42)
[2021-03-28 09:11] LABS: Valproate 29.6 mcg/mL (50.0-100.0)
--- NOTE | 2021-03-28 12:38 | P.PNPSI_ITS ---
Subjective Subjective Date of Service: 03/28/21 Reason For Visit: Bipolar Disorder PTSD Interim History: Patient 1st asked if she can discharge. However after further discussion she remembers that she missed her Invega Sustenna dose last month and so she should probably stay. Patient reports that today she has no visual hallucinations and no auditory hallucinations however yesterday she saw some figures moving about the place. Patient then started laughing and said that she sees silly people running around and sees people in ski masks robbing [employer] which patient thinks is hilarious. Patient continues to laugh inappropriately at various times. She made some comment about what to do with the fruity petar and then concluded they should be thrown at the bottom of the ocean. Patient agrees to restart Invega Sustenna and take some p.o. Invega as an overlap. She does not want Suboxone saying it tastes terrible but is interested in getting on naltrexone/Vivitrol which she says will help with alcohol cravings. Patient denies any SI or HI. Mental Status Exam Mental Status Exam Narrative: A&O. In blue hooded sweatshirt; hair adequately groomed; pt is polite, cooperative and calm with good eye contact, inattentive. No Tics or Tremors. No abnormal involuntary movements. Mood is good but affect Labile and she both laughed (inappropriately) and cried; Speech is spontaneous, not pressured and normal volume, rate, prosody; no latency. Thought process is mostly goal oriented, however can also be tangential and disorganized making unrelated and bizarre comments at times;Thought content is on treatment, discharge and unrelated bizarre ideas. Denies SI/SIB/HI upon inquiry. Denies A/VH, today but had both yesterday; no overt grandiosity expressed. No known cognitive or memory impairment. Insight/ Judgment are impaired. Diagnostics Vital Signs (24Hr): Vital Signs - 24 hr 03/27/21 18:00 03/28/21 06:00 Temperature 97.3 F Pulse Rate 70 91 Respiratory Rate 18 Blood Pressure 114/71 148/104 H Pulse Oximetry 98 Labs Labs: Laboratory Results - last 48 hr 03/28/21 08:11 Valproic Acid 29.6 L Medications Medications Current Medications Acetaminophen (Acetaminophen 325 Mg Tablet) 650 mg PO Q6H PRN PRN Reason: Headache/Pain Mild Scale (1-3) Last Admin: 03/26/21 18:03 Dose: 650 mg Documented by: Al Hydroxide/Mg Hydroxide (Magnesium Hydrox/Alum Hydrox 30 Ml Oral.Susp) 30 ml PO Q6H PRN PRN Reason: Heartburn/Nausea Albuterol Sulfate (Albuterol Sulfate 90 Mcg 8 Gm Inhaler) 2 puff INHALE RQ6H PRN PRN Reason: wheeze Cyclobenzaprine HCl (Cyclobenzaprine Hcl 5 Mg Tablet) 5 mg PO DAILY PRN PRN Reason: spasm Diphenhydramine HCl (Diphenhydramine Hcl 25 Mg Tablet) 50 mg PO Q4H PRN PRN Reason: agitation Last Admin: 03/27/21 08:01 Dose: 50 mg Documented by: Divalproex Sodium (Divalproex Sodium 500 Mg Tablet.Dr) 500 mg PO ONCE ONE Stop: 03/28/21 21:01 Divalproex Sodium (Divalproex Sodium Er 500 Mg Tab.Er.24h) 1,000 mg PO BEDTIME [facility] Docusate Sodium (Docusate Sodium 100 Mg Capsule) 100 mg PO BID PRN PRN Reason: Constipation Last Admin: 03/27/21 10:02 Dose: 100 mg Documented by: Gabapentin (Gabapentin 100 Mg Capsule) 100 mg PO TID PRN PRN Reason: neuropathic pain Haloperidol (Haloperidol 5 Mg Tablet) 5 mg PO Q4H PRN PRN Reason: psychotic agitation Last Admin: 03/27/21 14:47 Dose: 5 mg Documented by: Hydroxyzine HCl (Hydroxyzine Hcl 50 Mg Tablet) 50 mg PO Q6H PRN PRN Reason: Anxiety Last Admin: 03/27/21 10:02 Dose: 50 mg Documented by: Ibuprofen (Ibuprofen 600 Mg Tablet) 600 mg PO Q6H PRN PRN Reason: Pain, Mild (Pain Scale 1-3) Last Admin: 03/28/21 04:47 Dose: 600 mg Documented by: Levothyroxine Sodium (Levothyroxine Sodium 25 Mcg Tablet) 25 mcg PO DAILY@0600 [facility] Last Admin: 03/28/21 04:49 Dose: 25 mcg Documented by: Lisinopril (Lisinopril 5 Mg Tablet) 5 mg PO DAILY [facility]; Protocol Last Admin: 03/28/21 08:51 Dose: 5 mg Documented by: Lorazepam (Lorazepam 1 Mg Tablet) 1 mg PO Q4H PRN PRN Reason: agitation Last Admin: 03/27/21 14:47 Dose: 1 mg Documented by: Magnesium Hydroxide (Milk Of Magnesia 30 Ml Oral.Susp) 30 ml PO DAILY PRN PRN Reason: Constipation Nicotine Polacrilex (Nicotine Polacrilex 2 Mg Gum) 4 mg BUCCAL Q2H PRN PRN Reason: Nicotine Cravings Last Admin: 03/28/21 07:22 Dose: 4 mg Documented by: Omeprazole (Omeprazole 20 Mg Capsule.Dr) 20 mg PO DAILY@0630 [facility] Last Admin: 03/28/21 04:49 Dose: 20 mg Documented by: Paliperidone (Paliperidone Er 3 Mg Tab.Er.24) 3 mg PO BEDTIME [facility] Paliperidone (Paliperidone Er 3 Mg Tab.Er.24) 3 mg PO ONCE ONE Stop: 03/28/21 12:32 Paliperidone Palmitate (Paliperidone Palmitate 234 Mg/1.5 Ml Syringe) 234 mg IM ONCE ONE Stop: 03/28/21 12:32 Prazosin HCl (Prazosin Hcl 5 Mg Capsule) 5 mg PO BEDTIME [facility]; Protocol Last Admin: 03/27/21 20:50 Dose: 5 mg Documented by: Trazodone HCl (Trazodone Hcl 50 Mg Tablet) 50 mg PO BEDTIME PRN PRN Reason: Insomnia Trolamine Salicylate/Aloe Vera (Trolamine Salicylate 10%/Aloe Cream 35.4 Gm) 1 appl TOPICAL QID PRN PRN Reason: arthritis pain knee Last Admin: 03/28/21 07:22 Dose: 1 appl Documented by: Allergies Allergies Allergy/AdvReac Type Severity Reaction Status Date / Time hydromorphone Allergy Intermediate Rash Verified 03/11/21 12:32 acyclovir Allergy Unknown Unknown Verified 03/24/21 17:46 insect venom [INSECT BITES] Allergy Unknown UNKNOWN Verified 01/24/21 15:32 sulfamethoxazole Allergy Unknown Anaphylaxis Verified 03/17/21 11:12 [From BACTRIM] trimethoprim [From BACTRIM] Allergy Unknown Anaphylaxis Verified 03/17/21 11:12 Assessment & Plan Assessment & Plan (1) Hypertension: Status: Acute Code(s): I10 - Essential (primary) hypertension Plan Atiya is a 45-year-old female who carries a dx of Bipolar I disorder. Pt is known to [facility] [place] M5, has hx of manic episodes with sx of hyposomnia and impulsivity. She presented to unit for manic/psychotic symptoms and is being restarted on medication Plan: CV Q 15 minute checks Continue Depakote ER but will change dose to bedtime; level is subtherapeutic however patient is also off her Invega Sustenna. She has been on slightly higher dose of Depakote in the past but it is unclear if it is necessary Start Invega sustained at 234 mg 1 time dose; will follow-up with 156 mg Start Invega 3 mg p.o. q.h.s. as an overlap for now given her psychotic symptoms Will consider naltrexone/Vivitrol at patient's request for alcohol cravings Pt would like to resume VNA services upon discharge and have a locked box for her meds, as she has a hx of overusing medications for sleep and pain. Monitor response to medications. Monitor for safety in the milieu. Discharge on stabilization. Patient seen. Chart reviewed. Discussed with team. Obtain collateral contact info as needed I spent minutes with the patient and/or on the patient floor today, greater than?50% of which was spent counseling/coordinating care. Reason for contiued inpatient stay Substantial Risk for: inability to function and rapid decompensation
[2021-03-28] MEDS: Paliperidone ER 3 MG TAB.ER.24 PO (13:31)
[2021-03-28] MEDS: Paliperidone Palmitate 234 MG/1.5 ML SYRINGE IM (13:31)
[2021-03-28 18:00] VITALS: BP 118/70; PULSE 95; TEMP 36.5
[2021-03-28] MEDS: Divalproex Sodium ER 500 MG TAB.ER.24H 1000 MG PO (19:42)
[2021-03-28] MEDS: Prazosin HCL 5 MG CAPSULE PO (19:45)
[2021-03-28] MEDS: HaloperidoL 5 MG TABLET PO (19:46)
[2021-03-28] MEDS: LORazepam 1 MG TABLET PO (19:46)
[2021-03-29] MEDS: hydrOXYzine HCL 50 MG TABLET PO ×2 (01:51→09:14)
[2021-03-29] MEDS: Levothyroxine Sodium 25 MCG TABLET PO (05:14)
[2021-03-29] MEDS: Omeprazole 20 MG CAPSULE.DR PO (05:14)
[2021-03-29 08:27] VITALS: BP 133/98; PULSE 86; RESP 16; TEMP 36.4; O2SAT 98
[2021-03-29] MEDS: LORazepam 1 MG TABLET PO ×2 (09:14→21:06)
[2021-03-29] MEDS: lisinopriL 5 MG TABLET PO (09:14)
--- NOTE | 2021-03-29 10:40 | P.PNPSI_ITS ---
Subjective Subjective Date of Service: 03/29/21 Reason For Visit: Bipolar Disorder PTSD Interim History: Patient significantly more calm today and behaving and talking in an organized way. She says that she is feeling better from yesterday, more in touch with reality. Patient shared some of her ongoing struggles with her family, feeling alienated by some and lonely. She also shared how ultimately she would like to live in [place] with some of her extended family and is trying to figure out how this can be accomplished. Patient shared other history about raising her brother while her mother was intoxicated and how it is hurtful that he is not more receptive to the relationship. Patient reports she is sleeping well; no SI, HI or AVH. Patient said she would like to discharge as soon as possible but also wants to stay in the unit long enough to make sure she stable and will remain so. Mental Status Exam Mental Status Exam Narrative: A&O. In blue hooded sweatshirt; hair adequately groomed; pt is polite, cooperative and calm with good eye contact. No Tics or Tremors. No abnormal involuntary movements. Mood is ok and affect congruent; no lability organized behavior. Speech is spontaneous, not pressured and normal volume, rate, prosody; no latency.? Thought process is goal oriented and linear; thought content is on treatment, discharge Denies SI/SIB/HI. Denies A/VH; no delusional content; No known cognitive or memory impairment. Insight/ Judgment are impaired but improving Diagnostics Vital Signs (24Hr): Vital Signs - 24 hr 03/28/21 18:00 03/29/21 08:27 Temperature 97.7 F 97.5 F Pulse Rate 95 86 Respiratory Rate 16 Blood Pressure 118/70 133/98 H Pulse Oximetry 98 Labs Labs: Laboratory Results - last 48 hr 03/28/21 08:11 Valproic Acid 29.6 L Medications Medications Current Medications Acetaminophen (Acetaminophen 325 Mg Tablet) 650 mg PO Q6H PRN PRN Reason: Headache/Pain Mild Scale (1-3) Last Admin: 03/26/21 18:03 Dose: 650 mg Documented by: Al Hydroxide/Mg Hydroxide (Magnesium Hydrox/Alum Hydrox 30 Ml Oral.Susp) 30 ml PO Q6H PRN PRN Reason: Heartburn/Nausea Albuterol Sulfate (Albuterol Sulfate 90 Mcg 8 Gm Inhaler) 2 puff INHALE RQ6H PRN PRN Reason: wheeze Cyclobenzaprine HCl (Cyclobenzaprine Hcl 5 Mg Tablet) 5 mg PO DAILY PRN PRN Reason: spasm Diphenhydramine HCl (Diphenhydramine Hcl 25 Mg Tablet) 50 mg PO Q4H PRN PRN Reason: agitation Last Admin: 03/27/21 08:01 Dose: 50 mg Documented by: Divalproex Sodium (Divalproex Sodium Er 500 Mg Tab.Er.24h) 1,000 mg PO BEDTIME [facility] Last Admin: 03/28/21 19:42 Dose: 1,000 mg Documented by: Docusate Sodium (Docusate Sodium 100 Mg Capsule) 100 mg PO BID PRN PRN Reason: Constipation Last Admin: 03/27/21 10:02 Dose: 100 mg Documented by: Gabapentin (Gabapentin 100 Mg Capsule) 100 mg PO TID PRN PRN Reason: neuropathic pain Haloperidol (Haloperidol 5 Mg Tablet) 5 mg PO Q4H PRN PRN Reason: psychotic agitation Last Admin: 03/28/21 19:46 Dose: 5 mg Documented by: Hydroxyzine HCl (Hydroxyzine Hcl 50 Mg Tablet) 50 mg PO Q6H PRN PRN Reason: Anxiety Last Admin: 03/29/21 09:14 Dose: 50 mg Documented by: Ibuprofen (Ibuprofen 600 Mg Tablet) 600 mg PO Q6H PRN PRN Reason: Pain, Mild (Pain Scale 1-3) Last Admin: 03/28/21 04:47 Dose: 600 mg Documented by: Levothyroxine Sodium (Levothyroxine Sodium 25 Mcg Tablet) 25 mcg PO DAILY@0600 [facility] Last Admin: 03/29/21 05:14 Dose: 25 mcg Documented by: Lisinopril (Lisinopril 5 Mg Tablet) 5 mg PO DAILY [facility]; Protocol Last Admin: 03/29/21 09:14 Dose: 5 mg Documented by: Lorazepam (Lorazepam 1 Mg Tablet) 1 mg PO Q4H PRN PRN Reason: agitation Last Admin: 03/29/21 09:14 Dose: 1 mg Documented by: Magnesium Hydroxide (Milk Of Magnesia 30 Ml Oral.Susp) 30 ml PO DAILY PRN PRN Reason: Constipation Nicotine Polacrilex (Nicotine Polacrilex 2 Mg Gum) 4 mg BUCCAL Q2H PRN PRN Reason: Nicotine Cravings Last Admin: 03/28/21 07:22 Dose: 4 mg Documented by: Omeprazole (Omeprazole 20 Mg Capsule.Dr) 20 mg PO DAILY@0630 [facility] Last Admin: 03/29/21 05:14 Dose: 20 mg Documented by: Paliperidone (Paliperidone Er 3 Mg Tab.Er.24) 3 mg PO BEDTIME [facility] Prazosin HCl (Prazosin Hcl 5 Mg Capsule) 5 mg PO BEDTIME [facility]; Protocol Last Admin: 03/28/21 19:45 Dose: 5 mg Documented by: Trazodone HCl (Trazodone Hcl 50 Mg Tablet) 50 mg PO BEDTIME PRN PRN Reason: Insomnia Trolamine Salicylate/Aloe Vera (Trolamine Salicylate 10%/Aloe Cream 35.4 Gm) 1 appl TOPICAL QID PRN PRN Reason: arthritis pain knee Last Admin: 03/28/21 22:47 Dose: 1 appl Documented by: Allergies Allergies Allergy/AdvReac Type Severity Reaction Status Date / Time hydromorphone Allergy Intermediate Rash Verified 03/11/21 12:32 acyclovir Allergy Unknown Unknown Verified 03/24/21 17:46 insect venom [INSECT BITES] Allergy Unknown UNKNOWN Verified 01/24/21 15:32 sulfamethoxazole Allergy Unknown Anaphylaxis Verified 03/17/21 11:12 [From BACTRIM] trimethoprim [From BACTRIM] Allergy Unknown Anaphylaxis Verified 03/17/21 11:12 Assessment & Plan Assessment & Plan (1) Bipolar 1 disorder, manic, moderate: Status: Acute Code(s): F31.12 - Bipolar disorder, current episode manic without psychotic features, moderate (2) PTSD (post-traumatic stress disorder): Status: Acute Code(s): F43.10 - Post-traumatic stress disorder, unspecified (3) Osteoarthritis of right knee: Status: Acute Code(s): M17.11 - Unilateral primary osteoarthritis, right knee (4) Hypertension: Status: Acute Code(s): I10 - Essential (primary) hypertension Plan Atiya is a 45-year-old female who carries a dx of Bipolar I disorder. Pt is known to [facility], has hx of manic episodes with sx of hyposomnia and impulsivity. She presented to unit for manic/psychotic symptoms and is being restarted on medication 03/29 patient has significantly improved since starting Invega. Patient speech and behaviors are organized. She is a little depressed but is feeling better. Denies any SI or HI. Expressed struggle she has with her family relationships. PLAN: CV Q 15 minute checks Continue Depakote ER but will change dose to bedtime; level is subtherapeutic however patient is also off her Invega Sustenna. She has been on slightly higher dose of Depakote in the past but it is unclear if it is necessary Patient received Invega Sustenna 234 mg on 03/28 Will overlap PO Invega 3 mg p.o. q.h.s. 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 otherwise: Monitor response to medications. Monitor for safety in the milieu. Discharge on stabilization. Patient seen. Chart reviewed. Discussed with team. Obtain collateral contact info as needed I spent minutes with the patient and/or on the patient floor today, greater than?50% of which was spent counseling/coordinating care. Reason for contiued inpatient stay Substantial Risk for: rapid decompensation
[2021-03-29] MEDS: Nicotine Polacrilex 2 MG GUM 4 MG BUCCAL ×2 (11:52→16:04)
[2021-03-29] MEDS: Ibuprofen 600 MG TABLET PO (16:08)
[2021-03-29 21:00] VITALS: BP 123/64; PULSE 78; TEMP 37.2; O2SAT 96
[2021-03-29] MEDS: Prazosin HCL 5 MG CAPSULE PO (21:05)
[2021-03-29] MEDS: Paliperidone ER 3 MG TAB.ER.24 PO (21:06)
[2021-03-29] MEDS: Divalproex Sodium ER 500 MG TAB.ER.24H 1000 MG PO (21:06)
[2021-03-30] MEDS: Nicotine Polacrilex 2 MG GUM 4 MG BUCCAL ×4 (02:51→17:04)
[2021-03-30] MEDS: Levothyroxine Sodium 25 MCG TABLET PO (06:32)
[2021-03-30] MEDS: Omeprazole 20 MG CAPSULE.DR PO (06:32)
[2021-03-30 08:04] VITALS: BP 124/78; PULSE 103; RESP 18; TEMP 36.4
[2021-03-30] MEDS: lisinopriL 5 MG TABLET PO (08:07)
--- NOTE | 2021-03-30 10:13 | P.PNPSI_ITS ---
Subjective Subjective Date of Service: 03/30/21 Reason For Visit: Bipolar Disorder PTSD Interim History: Patient reports that she continues to overall feel better. She still feels that she has some inappropriate laughter could use a little more time on the unit and agrees to remain to get 2nd Invega Sustenna IM though she would like to go [place]. Patient shared some excitement that her daughter got her national van truck driver's permit which will alleviate some burden on patient. She also shared that the divorce should happen within 6 months which she is happy about. Patient reports she is sleeping well. She discussed some flirting on the unit with a peer but has the insight to acknowledge she would enjoy the attention due to loneliness and maintains the perspective that this is not appropriate and has disengaged. 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 In blue hooded sweatshirt; hair adequately groomed; pt is polite, cooperative and calm with good eye contact. No Tics or Tremors. No abnormal involuntary movements. Mood is ok and affect congruent; no lability organized behavior. Speech is spontaneous, not pressured and normal volume, rate, prosody; no latency.? Thought process is? goal oriented and linear; thought content is on treatment, discharge Denies SI/SIB/HI. Denies A/VH; no delusional content; No known cognitive or memory impairment. Insight/ Judgment are impaired but improving Diagnostics Vital Signs (24Hr): Vital Signs - 24 hr 03/29/21 21:00 03/30/21 08:04 Temperature 98.9 F 97.6 F Pulse Rate 78 103 H Respiratory Rate 18 Blood Pressure 123/64 124/78 Pulse Oximetry 96 Medications Medications Current Medications Acetaminophen (Acetaminophen 325 Mg Tablet) 650 mg PO Q6H PRN PRN Reason: Headache/Pain Mild Scale (1-3) Last Admin: 03/26/21 18:03 Dose: 650 mg Documented by: Al Hydroxide/Mg Hydroxide (Magnesium Hydrox/Alum Hydrox 30 Ml Oral.Susp) 30 ml PO Q6H PRN PRN Reason: Heartburn/Nausea Albuterol Sulfate (Albuterol Sulfate 90 Mcg 8 Gm Inhaler) 2 puff INHALE RQ6H PRN PRN Reason: wheeze Cyclobenzaprine HCl (Cyclobenzaprine Hcl 5 Mg Tablet) 5 mg PO DAILY PRN PRN Reason: spasm Diphenhydramine HCl (Diphenhydramine Hcl 25 Mg Tablet) 50 mg PO Q4H PRN PRN Reason: agitation Last Admin: 03/27/21 08:01 Dose: 50 mg Documented by: Divalproex Sodium (Divalproex Sodium Er 500 Mg Tab.Er.24h) 1,000 mg PO BEDTIME [facility] Last Admin: 03/29/21 21:06 Dose: 1,000 mg Documented by: Docusate Sodium (Docusate Sodium 100 Mg Capsule) 100 mg PO BID PRN PRN Reason: Constipation Last Admin: 03/27/21 10:02 Dose: 100 mg Documented by: Gabapentin (Gabapentin 100 Mg Capsule) 100 mg PO TID PRN PRN Reason: neuropathic pain Haloperidol (Haloperidol 5 Mg Tablet) 5 mg PO Q4H PRN PRN Reason: psychotic agitation Last Admin: 03/28/21 19:46 Dose: 5 mg Documented by: Hydroxyzine HCl (Hydroxyzine Hcl 50 Mg Tablet) 50 mg PO Q6H PRN PRN Reason: Anxiety Last Admin: 03/29/21 09:14 Dose: 50 mg Documented by: Ibuprofen (Ibuprofen 600 Mg Tablet) 600 mg PO Q6H PRN PRN Reason: Pain, Mild (Pain Scale 1-3) Last Admin: 03/29/21 16:08 Dose: 600 mg Documented by: Levothyroxine Sodium (Levothyroxine Sodium 25 Mcg Tablet) 25 mcg PO DAILY@0600 [facility] Last Admin: 03/30/21 06:32 Dose: 25 mcg Documented by: Lisinopril (Lisinopril 5 Mg Tablet) 5 mg PO DAILY [facility]; Protocol Last Admin: 03/30/21 08:07 Dose: 5 mg Documented by: Lorazepam (Lorazepam 1 Mg Tablet) 1 mg PO Q4H PRN PRN Reason: agitation Last Admin: 03/29/21 21:06 Dose: 1 mg Documented by: Magnesium Hydroxide (Milk Of Magnesia 30 Ml Oral.Susp) 30 ml PO DAILY PRN PRN Reason: Constipation Nicotine Polacrilex (Nicotine Polacrilex 2 Mg Gum) 4 mg BUCCAL Q2H PRN PRN Reason: Nicotine Cravings Last Admin: 03/30/21 08:40 Dose: 4 mg Documented by: Omeprazole (Omeprazole 20 Mg Capsule.Dr) 20 mg PO DAILY@0630 [facility] Last Admin: 03/30/21 06:32 Dose: 20 mg Documented by: Paliperidone (Paliperidone Er 3 Mg Tab.Er.24) 3 mg PO BEDTIME [facility] Last Admin: 03/29/21 21:06 Dose: 3 mg Documented by: Paliperidone Palmitate (Paliperidone Palmitate 156 Mg/Ml Syringe) 156 mg IM ONCE ONE Stop: 04/04/21 10:42 Prazosin HCl (Prazosin Hcl 5 Mg Capsule) 5 mg PO BEDTIME [facility]; Protocol Last Admin: 03/29/21 21:05 Dose: 5 mg Documented by: Trazodone HCl (Trazodone Hcl 50 Mg Tablet) 50 mg PO BEDTIME PRN PRN Reason: Insomnia Trolamine Salicylate/Aloe Vera (Trolamine Salicylate 10%/Aloe Cream 35.4 Gm) 1 appl TOPICAL QID PRN PRN Reason: arthritis pain knee Last Admin: 03/29/21 16:11 Dose: 1 appl Documented by: Allergies Allergies Allergy/AdvReac Type Severity Reaction Status Date / Time hydromorphone Allergy Intermediate Rash Verified 03/11/21 12:32 acyclovir Allergy Unknown Unknown Verified 03/24/21 17:46 insect venom [INSECT BITES] Allergy Unknown UNKNOWN Verified 01/24/21 15:32 sulfamethoxazole Allergy Unknown Anaphylaxis Verified 03/17/21 11:12 [From BACTRIM] trimethoprim [From BACTRIM] Allergy Unknown Anaphylaxis Verified 03/17/21 11:12 Assessment & Plan Assessment & Plan (1) Bipolar 1 disorder, manic, moderate: Status: Acute Code(s): F31.12 - Bipolar disorder, current episode manic without psychotic features, moderate (2) PTSD (post-traumatic stress disorder): Status: Acute Code(s): F43.10 - Post-traumatic stress disorder, unspecified (3) Osteoarthritis of right knee: Status: Acute Code(s): M17.11 - Unilateral primary osteoarthritis, right knee (4) Hypertension: Status: Acute Code(s): I10 - Essential (primary) hypertension Plan Atiya is a 45-year-old female who carries a dx of Bipolar I disorder. Pt is known to [facility], has hx of manic episodes with sx of hyposomnia and impulsivity. She presented to unit for manic/psychotic symptoms and is being restarted on medication 03/29 patient has significantly improved since starting Invega. Patient speech and behaviors are organized. She is a little depressed but is feeling better. Denies any SI or HI. Expressed struggle she has with her family relationships. 03/30 continuing to stabilize Wants to get on naltrexone PLAN: CV Q 15 minute checks START Naltrexone 25mg daily will get f/u lfts' Continue Depakote ER but will change dose to bedtime; level is subtherapeutic however patient is also off her Invega Sustenna. She has been on slightly higher dose of Depakote in the past but it is unclear if it is necessary Patient received Invega Sustenna 234 mg on 03/28 will DC PO Invega 3 mg p.o. q.h.s after 03/30 dose Invega Sustenna 156 mg IM due on 04/04 (may give sooner) Will consider naltrexone/Vivitrol at patient's request for alcohol cravings Pt would like to resume VNA services upon discharge and have a locked box for her meds, as she has a hx of overusing medications for sleep and pain. otherwise: Monitor response to medications. Monitor for safety in the milieu. Discharge on stabilization. Patient seen. Chart reviewed. Discussed with team. Obtain collateral contact info as needed I spent minutes with the patient and/or on the patient floor today, greater than?50% of which was spent counseling/coordinating care. Reason for contiued inpatient stay Substantial Risk for: rapid decompensation and med/psych decompensation
[2021-03-30] MEDS: Naltrexone HCl 50 MG TABLET 25 MG PO (11:44)
[2021-03-30] MEDS: hydrOXYzine HCL 50 MG TABLET PO (21:25)
[2021-03-30 22:00] VITALS: BP 134/80; PULSE 100; TEMP 36.5; O2SAT 98
[2021-03-30] MEDS: LORazepam 1 MG TABLET PO (22:03)
[2021-03-30] MEDS: Prazosin HCL 5 MG CAPSULE PO (22:03)
[2021-03-30] MEDS: Divalproex Sodium ER 500 MG TAB.ER.24H 1000 MG PO (22:04)
[2021-03-30] MEDS: Paliperidone ER 3 MG TAB.ER.24 PO (22:04)
[2021-03-31] MEDS: Cyclobenzaprine HCl 5 MG TABLET PO (04:23)
[2021-03-31] MEDS: LORazepam 1 MG TABLET PO ×2 (04:23→21:31)
[2021-03-31] MEDS: Ibuprofen 600 MG TABLET PO ×2 (04:24→16:20)
[2021-03-31] MEDS: Nicotine Polacrilex 2 MG GUM 4 MG BUCCAL ×5 (04:26→22:50)
[2021-03-31 06:00] VITALS: BP 135/100; PULSE 100; RESP 16; TEMP 36.7; O2SAT 99
[2021-03-31] MEDS: Levothyroxine Sodium 25 MCG TABLET PO (07:09)
[2021-03-31] MEDS: Omeprazole 20 MG CAPSULE.DR PO (07:09)
[2021-03-31] MEDS: Mineral Oil/Petrolatum,White 106 GM Tube 1 APPL TOPICAL ×2 (07:09→21:25)
[2021-03-31] MEDS: lisinopriL 5 MG TABLET PO (11:03)
[2021-03-31] MEDS: Naltrexone HCl 50 MG TABLET 25 MG PO (11:03)
[2021-03-31] MEDS: Gabapentin 100 MG CAPSULE PO (16:24)
--- NOTE | 2021-03-31 16:50 | HO.PSYCHPN ---
Subjective Subjective Date of Service: 03/31/21 Reason For Visit: Bipolar Disorder PTSD Interim History: Pt reports she's ok. No SI, no AVH; sleeping well. Last night, staff reports continued mood lability quickly going from laughing to crying, but this is not present today thus far. Pt is concerned about staying stable post discharge. Regarding her recent admission, She is not clear on why she became dysregulated but thinks it probably started at some point in February. [employer] Education Pres[employer] Teacher and patient discussed extended release Depakote verse immediate release Depakote, referencing discussion from past admission when she reported that her outpatient GI doctor recommended immediate release given history of abdominal surgery (cholecystectomy?). It is unclear what caused patient's disruption. She was discharged in December on Depakote ER 1250mg with a plan to discuss whether to switch to immediate release with outpatient provider. Patient did get her Invega Sustenna 156 mg on 01/31 however also around mid or late January patient relapsed with alcohol. Patient agrees it is possible that wall using alcohol she would intermittently forget to take her Depakote maker increasingly vulnerable to manic episode. However despite the fact that she got her February dose of Invega Sustenna and at an increased amount, she remained manic until this admission. And it seemed that her sonya and psychosis started to subside once she got an additional Invega Sustenna injection plus PO Invega. Throughout this discussion, patient said that she is open to whatever medication management needs to occur so that she stays stable and does not have another manic episode. Special Education Preschool Teacher called pharmacy at [facility] to clarify and pharmacist there told instructional writer the following: Pharmacist at [facility] said pt's VNA contacted who said patient got Invega sustenna 156mg IM on 03/03/21 at [facility] (she was there for about 1 day; this is about the time she was due for it) She went to [facility] ED soon after and received Invega Sustenna 78mg IM on 03/10/21 since it was decided she needed dose increased to 234mg monthly (up from 156mg Qmonth) At [facility] ED her depakote was ER but increased to 1500mg total daily dose. Mental Status Exam Mental Status Exam Narrative: A&O. In blue hooded sweatshirt; hair adequately groomed; pt is polite, cooperative and calm with good eye contact. No Tics or Tremors. No abnormal involuntary movements. Mood is ok and affect congruent; no lability organized behavior. Speech is spontaneous, not pressured and normal volume, rate, prosody; no latency.? Thought process is? goal oriented and linear; thought content is on treatment, discharge Denies SI/SIB/HI. Denies A/VH; no delusional content; No known cognitive or memory impairment. Insight/ Judgment are fair Diagnostics Vital Signs (24Hr): Vital Signs - 24 hr 03/30/21 22:00 03/31/21 06:00 Temperature 97.7 F 98.1 F Pulse Rate 100 100 Respiratory Rate 16 Blood Pressure 134/80 135/100 H Pulse Oximetry 98 99 Medications Medications Current Medications Acetaminophen (Acetaminophen 325 Mg Tablet) 650 mg PO Q6H PRN PRN Reason: Headache/Pain Mild Scale (1-3) Last Admin: 03/26/21 18:03 Dose: 650 mg Documented by: Al Hydroxide/Mg Hydroxide (Magnesium Hydrox/Alum Hydrox 30 Ml Oral.Susp) 30 ml PO Q6H PRN PRN Reason: Heartburn/Nausea Albuterol Sulfate (Albuterol Sulfate 90 Mcg 8 Gm Inhaler) 2 puff INHALE RQ6H PRN PRN Reason: wheeze Cyclobenzaprine HCl (Cyclobenzaprine Hcl 5 Mg Tablet) 5 mg PO DAILY PRN PRN Reason: spasm Last Admin: 03/31/21 04:23 Dose: 5 mg Documented by: Diphenhydramine HCl (Diphenhydramine Hcl 25 Mg Tablet) 50 mg PO Q4H PRN PRN Reason: agitation Last Admin: 03/27/21 08:01 Dose: 50 mg Documented by: Divalproex Sodium (Divalproex Sodium Er 250 Mg Tab.Er.24h) 1,250 mg PO BEDTIME JOSE DANIEL Docusate Sodium (Docusate Sodium 100 Mg Capsule) 100 mg PO BID PRN PRN Reason: Constipation Last Admin: 03/27/21 10:02 Dose: 100 mg Documented by: Gabapentin (Gabapentin 100 Mg Capsule) 100 mg PO TID PRN PRN Reason: neuropathic pain Last Admin: 03/31/21 16:24 Dose: 100 mg Documented by: Haloperidol (Haloperidol 5 Mg Tablet) 5 mg PO Q4H PRN PRN Reason: psychotic agitation Last Admin: 03/28/21 19:46 Dose: 5 mg Documented by: Hydroxyzine HCl (Hydroxyzine Hcl 50 Mg Tablet) 50 mg PO Q6H PRN PRN Reason: Anxiety Last Admin: 03/30/21 21:25 Dose: 50 mg Documented by: Ibuprofen (Ibuprofen 600 Mg Tablet) 600 mg PO Q6H PRN PRN Reason: Pain, Mild (Pain Scale 1-3) Last Admin: 03/31/21 16:20 Dose: 600 mg Documented by: Levothyroxine Sodium (Levothyroxine Sodium 25 Mcg Tablet) 25 mcg PO DAILY@0600 [facility] Last Admin: 03/31/21 07:09 Dose: 25 mcg Documented by: Lisinopril (Lisinopril 5 Mg Tablet) 5 mg PO DAILY [facility]; Protocol Last Admin: 03/31/21 11:03 Dose: 5 mg Documented by: Lorazepam (Lorazepam 1 Mg Tablet) 1 mg PO Q4H PRN PRN Reason: agitation Last Admin: 03/31/21 04:23 Dose: 1 mg Documented by: Magnesium Hydroxide (Milk Of Magnesia 30 Ml Oral.Susp) 30 ml PO DAILY PRN PRN Reason: Constipation Multi-Ingred Cream/Lotion/Oil/Oint (Mineral Oil/Petrolatum,White 106 Gm Tube) 1 appl TOPICAL TID PRN; Protocol PRN Reason: Dry Skin Last Admin: 03/31/21 07:09 Dose: 1 appl Documented by: Naltrexone HCl (Naltrexone Hcl 50 Mg Tablet) 25 mg PO DAILY [facility] Last Admin: 03/31/21 11:03 Dose: 25 mg Documented by: Nicotine Polacrilex (Nicotine Polacrilex 2 Mg Gum) 4 mg BUCCAL Q2H PRN PRN Reason: Nicotine Cravings Last Admin: 03/31/21 16:24 Dose: 4 mg Documented by: Omeprazole (Omeprazole 20 Mg Capsule.) 20 mg PO DAILY@0630 [facility] Last Admin: 03/31/21 07:09 Dose: 20 mg Documented by: Paliperidone (Paliperidone Er 3 Mg Tab.Er.24) 3 mg PO BEDTIME [facility] Last Admin: 03/30/21 22:04 Dose: 3 mg Documented by: Paliperidone Palmitate (Paliperidone Palmitate 156 Mg/Ml Syringe) 156 mg IM ONCE ONE Stop: 04/04/21 10:42 Prazosin HCl (Prazosin Hcl 5 Mg Capsule) 5 mg PO BEDTIME [facility]; Protocol Last Admin: 03/30/21 22:03 Dose: 5 mg Documented by: Trazodone HCl (Trazodone Hcl 50 Mg Tablet) 50 mg PO BEDTIME PRN PRN Reason: Insomnia Trolamine Salicylate/Aloe Vera (Trolamine Salicylate 10%/Aloe Cream 35.4 Gm) 1 appl TOPICAL QID PRN PRN Reason: arthritis pain knee Last Admin: 03/30/21 16:41 Dose: 1 appl Documented by: Allergies Allergies Allergy/AdvReac Type Severity Reaction Status Date / Time hydromorphone Allergy Intermediate Rash Verified 03/11/21 12:32 acyclovir Allergy Unknown Unknown Verified 03/24/21 17:46 insect venom [INSECT BITES] Allergy Unknown UNKNOWN Verified 01/24/21 15:32 sulfamethoxazole Allergy Unknown Anaphylaxis Verified 03/17/21 11:12 [From BACTRIM] trimethoprim [From BACTRIM] Allergy Unknown Anaphylaxis Verified 03/17/21 11:12 Assessment & Plan Assessment & Plan (1) Bipolar 1 disorder, manic, moderate: Status: Acute Code(s): F31.12 - Bipolar disorder, current episode manic without psychotic features, moderate (2) PTSD (post-traumatic stress disorder): Status: Acute Code(s): F43.10 - Post-traumatic stress disorder, unspecified (3) Osteoarthritis of right knee: Status: Acute Code(s): M17.11 - Unilateral primary osteoarthritis, right knee (4) Hypertension: Status: Acute Code(s): I10 - Essential (primary) hypertension Plan Atiya is a 45-year-old female who carries a dx of Bipolar I disorder. Pt is known to [facility] M[facility], has hx of manic episodes with sx of hyposomnia and impulsivity. She presented to unit for manic/psychotic symptoms and is being restarted on medication 03/29 patient has significantly improved since starting Invega. Patient speech and behaviors are organized. She is a little depressed but is feeling better. Denies any SI or HI. Expressed struggle she has with her family relationships. 03/30 continuing to stabilize Wants to get on naltrexone 03/31 [employer] Education Preschool Teacher called pharmacist at [facility] to clarify and pharmacist there told instructional writer the following: Pharmacist at [facility] said pt's VNA contacted who said patient got Invega sustenna 156mg IM on 03/03/21 at [facility] (she was there for about 1 day; this is about the time she was due for it) She went to [facility] ED soon after and received Invega Sustenna 78mg IM on 03/10/21 since it was decided she needed dose increased to 234mg monthly (up from 156mg Qmonth) At [facility] [place] her depakote was ER but increased to 1500mg total daily dose. [employer] Education Preschool Teacher and patient discussed extended release Depakote verse immediate release Depakote, referencing discussion from past admission when she reported that her outpatient GI doctor recommended immediate release given history of abdominal surgery (cholecystectomy?). It is unclear what caused patient's disruption. She was discharged in December on Depakote ER 1250mg with a plan to discuss whether to switch to immediate release with outpatient provider; patient's Depakote levels are chronically low despite consistent report that she takes Depakote. Patient did get her Invega Sustenna 156 mg on 01/31 however also around mid or late January patient relapsed with alcohol. Patient agrees it is possible that wall using alcohol she would intermittently forget to take her Depakote maker increasingly vulnerable to manic episode. However despite the fact that she got her February dose of Invega Sustenna (At [facility] 156mg- which she dose not remember) and at an increased amount (an additional 78mg at [facility] [place]- which she does not remember), she remained floridly manic until this admission. And it seemed that her sonya and psychosis only started to subside once she got to this unit and received an additional Invega Sustenna injection plus PO Invega. -it is thus not clear what patient needs for medication to stay stable. It is not clear the role alcohol plays and destabilizing patient despite p.m. medication PLAN: CV Q 15 minute checks PT labile last night, so continued PO Invega 3 mg p.o. q.h.s CHANGED TO Depakote IR DEPAKOTE IR 500 Q.A.M. DEPAKOTE IR 1000 Q.H.S. Patient received Invega Sustenna 234 mg on 03/28 (Invega sustenna 156mg IM on 03/03/21 at [facility] (she was there for about 1 day; this is about the time she was due for it) Invega Sustenna 78mg IM on 1/20/22 since it was decided she needed dose increased to 234mg monthly (up from 156mg Qmonth) =total dose of Invega Sustenna 234mg in February) HOLD Invega Sustenna 156 mg IM due on 04/04 since medication regimen needs to be reviewed further -Naltrexone 25mg daily (will make appointment for [facility]) -will get f/u lfts' Pt would like to resume VNA services upon discharge and have a locked box for her meds, as she has a hx of overusing medications for sleep and pain. otherwise: Monitor response to medications. Monitor for safety in the milieu. Discharge on stabilization. Patient seen. Chart reviewed. Discussed with team. Obtain collateral contact info as needed I spent minutes with the patient and/or on the patient floor today, greater than?50% of which was spent counseling/coordinating care. Reason for contiued inpatient stay Substantial Risk for: med/psych decompensation
[2021-03-31 17:35] VITALS: BP 111/79; PULSE 87; RESP 18; TEMP 36.6; O2SAT 99
[2021-03-31] MEDS: Paliperidone ER 3 MG TAB.ER.24 PO (21:25)
[2021-03-31] MEDS: Prazosin HCL 5 MG CAPSULE PO (21:25)
[2021-03-31] MEDS: Divalproex Sodium 500 MG TABLET.DR 1000 MG PO (21:25)
[2021-03-31 21:29] VITALS: BP 116/70; PULSE 83
[2021-03-31] MEDS: diphenhydrAMINE HCL 25 MG TABLET 50 MG PO (21:31)
[2021-04-01] MEDS: Gabapentin 100 MG CAPSULE PO (04:35)
[2021-04-01] MEDS: Ibuprofen 600 MG TABLET PO ×2 (04:36→13:42)
[2021-04-01] MEDS: Nicotine Polacrilex 2 MG GUM 4 MG BUCCAL ×2 (04:38→12:59)
[2021-04-01] MEDS: Levothyroxine Sodium 25 MCG TABLET PO (05:42)
[2021-04-01] MEDS: Omeprazole 20 MG CAPSULE.DR PO (05:42)
[2021-04-01 06:00] VITALS: BP 128/68; PULSE 79; RESP 18; TEMP 36.7; O2SAT 98
[2021-04-01] MEDS: LORazepam 1 MG TABLET PO (08:19)
[2021-04-01] MEDS: lisinopriL 5 MG TABLET PO (08:19)
[2021-04-01] MEDS: Naltrexone HCl 50 MG TABLET 25 MG PO (08:19)
[2021-04-01] MEDS: Divalproex Sodium 500 MG TABLET.DR PO (08:19)
[2021-04-01 09:04] LABS: Alanine Aminotransferase 10 U/L (0-31); Albumin Level 3.9 g/dL (3.5-5.0); Alkaline Phosphatase 67 U/L (39-117); Aspartate Amino Transferase 14 U/L (5-31); Bilirubin Direct 0.2 mg/dL (0.0-0.5); Bilirubin Total 0.4 mg/dL (0.0-1.0); Total Protein 6.9 g/dL (6.5-8.0)
[2021-04-01] MEDS: Cyclobenzaprine HCl 5 MG TABLET PO (13:42)
--- NOTE | 2021-04-01 14:16 | HO.PSYCHPN ---
Subjective Subjective Date of Service: 04/01/21 Reason For Visit: Bipolar Disorder PTSD Interim History: Patient reports that she remains overall okay and though still has depression and anxiety there tolerable. No SI. Patient and publications writer discussed her recent history regarding Invega Sustenna dosing. She does remember going to [facility] and to the [facility] ED but does not remember getting any Invega IM. Patient agrees it is not clear why she had a manic episode other than it is most likely that she started drinking and stopped taking some portion of her Depakote, likely bedtime doses. She agrees with plan for now to have Depakote immediate release 500 in the morning and 1000 q.h.s.. Ground Water Contractor notes that patient is currently calm and stable without manic symptoms, sleeping through the night, logical and organized in her thinking and behavior. This was also true at her last discharge when she was only on Invega Sustenna 156 mg. At this point publications writer is not sure that patient needs to be on increased Invega Sustenna which will also increase risk of side effects. Patient agrees with current plan to remained 156 mg however is open to having increased if it is determined necessary. Mental Status Exam Mental Status Exam Narrative: A&O. In blue hooded sweatshirt; hair adequately groomed; pt is polite, cooperative and calm with good eye contact. No Tics or Tremors. No abnormal involuntary movements. Mood is ok and affect congruent; no lability organized behavior. Speech is spontaneous, not pressured and normal volume, rate, prosody; no latency.? Thought process is? goal oriented and linear; thought content is on treatment, discharge Denies SI/SIB/HI. Denies A/VH; no delusional content; No known cognitive or memory impairment. Insight/ Judgment are fair Diagnostics Vital Signs (24Hr): Vital Signs - 24 hr 03/31/21 17:35 03/31/21 21:29 04/01/21 06:00 Temperature 97.8 F 98.0 F Pulse Rate 87 83 79 Respiratory Rate 18 18 Blood Pressure 111/79 116/70 128/68 Pulse Oximetry 99 98 Labs Labs: Laboratory Results - last 48 hr 04/01/21 08:02 Total Bilirubin 0.4 Direct Bilirubin 0.2 AST 14 ALT 10 Alkaline Phosphatase 67 Total Protein 6.9 Albumin 3.9 Medications Medications Current Medications Acetaminophen (Acetaminophen 325 Mg Tablet) 650 mg PO Q6H PRN PRN Reason: Headache/Pain Mild Scale (1-3) Last Admin: 03/26/21 18:03 Dose: 650 mg Documented by: Al Hydroxide/Mg Hydroxide (Magnesium Hydrox/Alum Hydrox 30 Ml Oral.Susp) 30 ml PO Q6H PRN PRN Reason: Heartburn/Nausea Albuterol Sulfate (Albuterol Sulfate 90 Mcg 8 Gm Inhaler) 2 puff INHALE RQ6H PRN PRN Reason: wheeze Cyclobenzaprine HCl (Cyclobenzaprine Hcl 5 Mg Tablet) 5 mg PO DAILY PRN PRN Reason: spasm Last Admin: 04/01/21 13:42 Dose: 5 mg Documented by: Diphenhydramine HCl (Diphenhydramine Hcl 25 Mg Tablet) 50 mg PO Q4H PRN PRN Reason: agitation Last Admin: 03/31/21 21:31 Dose: 50 mg Documented by: Divalproex Sodium (Divalproex Sodium 500 Mg Tablet.) 1,000 mg PO BEDTIME [facility] Last Admin: 03/31/21 21:25 Dose: 1,000 mg Documented by: Divalproex Sodium (Divalproex Sodium 500 Mg Tablet.) 500 mg PO DAILY [facility] Last Admin: 04/01/21 08:19 Dose: 500 mg Documented by: Docusate Sodium (Docusate Sodium 100 Mg Capsule) 100 mg PO BID PRN PRN Reason: Constipation Last Admin: 03/27/21 10:02 Dose: 100 mg Documented by: Gabapentin (Gabapentin 100 Mg Capsule) 100 mg PO TID PRN PRN Reason: neuropathic pain Last Admin: 04/01/21 04:35 Dose: 100 mg Documented by: Haloperidol (Haloperidol 5 Mg Tablet) 5 mg PO Q4H PRN PRN Reason: psychotic agitation Last Admin: 03/28/21 19:46 Dose: 5 mg Documented by: Hydroxyzine HCl (Hydroxyzine Hcl 50 Mg Tablet) 50 mg PO Q6H PRN PRN Reason: Anxiety Last Admin: 03/30/21 21:25 Dose: 50 mg Documented by: Ibuprofen (Ibuprofen 600 Mg Tablet) 600 mg PO Q6H PRN PRN Reason: Pain, Mild (Pain Scale 1-3) Last Admin: 04/01/21 13:42 Dose: 600 mg Documented by: Levothyroxine Sodium (Levothyroxine Sodium 25 Mcg Tablet) 25 mcg PO DAILY@0600 [facility] Last Admin: 04/01/21 05:42 Dose: 25 mcg Documented by: Lisinopril (Lisinopril 5 Mg Tablet) 5 mg PO DAILY [facility]; Protocol Last Admin: 04/01/21 08:19 Dose: 5 mg Documented by: Lorazepam (Lorazepam 1 Mg Tablet) 1 mg PO Q4H PRN PRN Reason: agitation Last Admin: 04/01/21 08:19 Dose: 1 mg Documented by: Magnesium Hydroxide (Milk Of Magnesia 30 Ml Oral.Susp) 30 ml PO DAILY PRN PRN Reason: Constipation Multi-Ingred Cream/Lotion/Oil/Oint (Mineral Oil/Petrolatum,White 106 Gm Tube) 1 appl TOPICAL TID PRN; Protocol PRN Reason: Dry Skin Last Admin: 03/31/21 21:25 Dose: 1 appl Documented by: Naltrexone HCl (Naltrexone Hcl 50 Mg Tablet) 25 mg PO DAILY [facility] Last Admin: 04/01/21 08:19 Dose: 25 mg Documented by: Nicotine Polacrilex (Nicotine Polacrilex 2 Mg Gum) 4 mg BUCCAL Q2H PRN PRN Reason: Nicotine Cravings Last Admin: 04/01/21 12:59 Dose: 4 mg Documented by: Omeprazole (Omeprazole 20 Mg Capsule.Dr) 20 mg PO DAILY@0630 [facility] Last Admin: 04/01/21 05:42 Dose: 20 mg Documented by: Paliperidone (Paliperidone Er 3 Mg Tab.Er.24) 3 mg PO BEDTIME [facility] Last Admin: 03/31/21 21:25 Dose: 3 mg Documented by: Prazosin HCl (Prazosin Hcl 5 Mg Capsule) 5 mg PO BEDTIME [facility]; Protocol Last Admin: 03/31/21 21:25 Dose: 5 mg Documented by: Trazodone HCl (Trazodone Hcl 50 Mg Tablet) 50 mg PO BEDTIME PRN PRN Reason: Insomnia Trolamine Salicylate/Aloe Vera (Trolamine Salicylate 10%/Aloe Cream 35.4 Gm) 1 appl TOPICAL QID PRN PRN Reason: arthritis pain knee Last Admin: 03/31/21 21:25 Dose: 1 appl Documented by: Allergies Allergies Allergy/AdvReac Type Severity Reaction Status Date / Time hydromorphone Allergy Intermediate Rash Verified 03/11/21 12:32 acyclovir Allergy Unknown Unknown Verified 03/24/21 17:46 insect venom [INSECT BITES] Allergy Unknown UNKNOWN Verified 01/24/21 15:32 sulfamethoxazole Allergy Unknown Anaphylaxis Verified 03/17/21 11:12 [From BACTRIM] trimethoprim [From BACTRIM] Allergy Unknown Anaphylaxis Verified 03/17/21 11:12 Assessment & Plan Assessment & Plan (1) Bipolar 1 disorder, manic, moderate: Status: Acute Code(s): F31.12 - Bipolar disorder, current episode manic without psychotic features, moderate (2) PTSD (post-traumatic stress disorder): Status: Acute Code(s): F43.10 - Post-traumatic stress disorder, unspecified (3) Osteoarthritis of right knee: Status: Acute Code(s): M17.11 - Unilateral primary osteoarthritis, right knee (4) Hypertension: Status: Acute Code(s): I10 - Essential (primary) hypertension Plan Atiya is a 45-year-old female who carries a dx of Bipolar I disorder. Pt is known to [facility] M[facility], has hx of manic episodes with sx of hyposomnia and impulsivity. She presented to unit for manic/psychotic symptoms and is being restarted on medication 03/29 patient has significantly improved since starting Invega. Patient speech and behaviors are organized. She is a little depressed but is feeling better. Denies any SI or HI. Expressed struggle she has with her family relationships. 03/30 continuing to stabilize Wants to get on naltrexone 03/31 Ground Water Contractor called pharmacist at [facility] to clarify and pharmacist there told publications writer the following: Pharmacist at [facility] said pt's VNA contacted who said patient got Invega sustenna 156mg IM on 03/03/21 at [facility] (she was there for about 1 day; this is about the time she was due for it) She went to [facility] ED soon after and received Invega Sustenna 78mg IM on 03/10/21 since it was decided she needed dose increased to 234mg monthly (up from 156mg Qmonth) At [facility] ED her depakote was ER but increased to 1500mg total daily dose. Ground Water Contractor and patient discussed extended release Depakote verse immediate release Depakote, referencing discussion from past admission when she reported that her outpatient GI doctor recommended immediate release given history of abdominal surgery (cholecystectomy?). It is unclear what caused patient's disruption. She was discharged in December on Depakote ER 1250mg with a plan to discuss whether to switch to immediate release with outpatient provider; patient's Depakote levels are chronically low despite consistent report that she takes Depakote. Patient did get her Invega Sustenna 156 mg on 01/31 however also around mid or late January patient relapsed with alcohol. Patient agrees it is possible that wall using alcohol she would intermittently forget to take her Depakote maker increasingly vulnerable to manic episode. However despite the fact that she got her February dose of Invega Sustenna (At [facility] 156mg- which she dose not remember) and at an increased amount (an additional 78mg at [facility]- which she does not remember), she remained floridly manic until this admission. And it seemed that her sonya and psychosis only started to subside once she got to this unit and received an additional Invega Sustenna injection plus PO Invega. It is thus not clear what patient needs for medication to stay stable. It is not clear the role alcohol plays and destabilizing patient despite p.m. medication 04/01 Patient agrees it is not clear why she had a manic episode other than it is most likely that she started drinking and stopped taking some portion of her Depakote, likely bedtime doses. She agrees with plan for now to have Depakote immediate release 500 in the morning and 1000 q.h.s.. Ground Water Contractor notes that patient is currently calm and stable without manic symptoms, sleeping through the night, logical and organized in her thinking and behavior. This was also true at her last discharge when she was only on Invega Sustenna 156 mg and on which she remains stable for over a month. At this point publications writer is not sure that patient needs to be on increased Invega Sustenna which will also increase risk of side effects. Patient agrees with current plan to remained 156 mg however is open to having increased if it is determined necessary. Patient asks publications writer to call her daughter to see if her daughter can shed any light on what may have triggered manic episode. PLAN: CV Q 15 minute checks will DC PO Invega 3 mg qhs; however, will restart if pt again becomes labile/psychotic symptoms CHANGED TO Depakote IMMEDIATE RELEASE DEPAKOTE IR 500 Q.A.M. DEPAKOTE IR 1000 Q.H.S. Patient received Invega Sustenna 234 mg on 03/28 (Invega sustenna 156mg IM on 03/03/21 at [facility] (she was there for about 1 day; this is about the time she was due for it) Invega Sustenna 78mg IM on 03/10/21 since it was decided she needed dose increased to 234mg monthly (up from 156mg Qmonth) =total dose of Invega Sustenna 234mg in February) DISCONTINUE Invega Sustenna 156 mg IM due on 04/04 since medication regimen needs to be reviewed further -Naltrexone 25mg daily (will make appointment for [facility]) -will get f/u lfts' Pt would like to resume VNA services upon discharge and have a locked box for her meds, as she has a hx of overusing medications for sleep and pain. otherwise: Monitor response to medications. Monitor for safety in the milieu. Discharge on stabilization. Patient seen. Chart reviewed. Discussed with team. Obtain collateral contact info as needed I spent minutes with the patient and/or on the patient floor today, greater than?50% of which was spent counseling/coordinating care. Reason for contiued inpatient stay Substantial Risk for: stable for discharge
[2021-04-01 18:00] VITALS: RESP 16
[2021-04-02] MEDS: Nicotine Polacrilex 2 MG GUM 4 MG BUCCAL ×3 (04:06→10:14)
[2021-04-02] MEDS: Levothyroxine Sodium 25 MCG TABLET PO (05:07)
[2021-04-02] MEDS: Omeprazole 20 MG CAPSULE.DR PO (05:07)
[2021-04-02 08:15] VITALS: BP 128/78; PULSE 92; TEMP 36.8
[2021-04-02] MEDS: lisinopriL 5 MG TABLET PO (08:52)
[2021-04-02] MEDS: Divalproex Sodium 500 MG TABLET.DR PO (08:53)
[2021-04-02] MEDS: Ibuprofen 600 MG TABLET PO ×2 (10:14→19:31)
[2021-04-02] MEDS: Naltrexone HCl 50 MG TABLET 25 MG PO (10:21)
--- NOTE | 2021-04-02 11:55 | HO.PSYCHPN ---
Subjective Subjective Date of Service: 04/02/21 Reason For Visit: Bipolar Disorder PTSD Interim History: Atiya reports she is doing well. Denies SE. Sleep and appetite are intact she reports. Medically, reports leg cramping-discussed trial of Vit B6. Discussed questions and concerns about returning to her work. She is not aware of how many hours she is allowed with SSI. We were able to research this question and learned approx 10 hours per week. 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 Rationale in her thought process regarding work and protecting her interests. Medication Compliance: Yes Side effects from medications: No Attending Groups: Yes Review of Systems Acute medical concerns: No Medical Review of Systems: unchanged Review of Systems Psychiatric: Reports anxiety and Reports mood swings Mental Status Exam Mental Status Exam Patient Appearance: Appropriate Patient Orientation: Person, Place, Time and Situation Level of Consciousness: Alert Patient Behavior: Appropriate, Talkative and Good Eye Contact Mood Description: Apprehensive Affect Description: Labile Patient Cognition Impaired: No Ability to Follow Directions: Good Speech Pattern: Spontaneous Speech Memory Description: Intact and Episodic Impaired Hallucinations: None Delusions: Not Present Thought Process: Distracted and Goal Oriented Thought Content: positive for Racing, positive for Goal Oriented, positive for Tangential and positive for Suicidal Ideation (denies) Judgement: Fair Diagnostics Vital Signs (24Hr): Vital Signs - 24 hr 04/01/21 18:00 04/02/21 08:15 Temperature 98.3 F Pulse Rate 92 Respiratory Rate 16 Blood Pressure 128/78 Labs Labs: Laboratory Results - last 48 hr 04/01/21 08:02 Total Bilirubin 0.4 Direct Bilirubin 0.2 AST 14 ALT 10 Alkaline Phosphatase 67 Total Protein 6.9 Albumin 3.9 Medications Medications Current Medications Acetaminophen (Acetaminophen 325 Mg Tablet) 650 mg PO Q6H PRN PRN Reason: Headache/Pain Mild Scale (1-3) Last Admin: 03/26/21 18:03 Dose: 650 mg Documented by: Al Hydroxide/Mg Hydroxide (Magnesium Hydrox/Alum Hydrox 30 Ml Oral.Susp) 30 ml PO Q6H PRN PRN Reason: Heartburn/Nausea Albuterol Sulfate (Albuterol Sulfate 90 Mcg 8 Gm Inhaler) 2 puff INHALE RQ6H PRN PRN Reason: wheeze Cyclobenzaprine HCl (Cyclobenzaprine Hcl 5 Mg Tablet) 5 mg PO DAILY PRN PRN Reason: spasm Last Admin: 04/01/21 13:42 Dose: 5 mg Documented by: Diphenhydramine HCl (Diphenhydramine Hcl 25 Mg Tablet) 50 mg PO Q4H PRN PRN Reason: agitation Last Admin: 03/31/21 21:31 Dose: 50 mg Documented by: Divalproex Sodium (Divalproex Sodium 500 Mg Tablet.) 1,000 mg PO BEDTIME ON LICENSE OF [facility] Last Admin: 04/01/21 20:24 Dose: Not Given Documented by: Divalproex Sodium (Divalproex Sodium 500 Mg Tablet.) 500 mg PO DAILY ON LICENSE OF [facility] Last Admin: 04/02/21 08:53 Dose: 500 mg Documented by: Docusate Sodium (Docusate Sodium 100 Mg Capsule) 100 mg PO BID PRN PRN Reason: Constipation Last Admin: 03/27/21 10:02 Dose: 100 mg Documented by: Gabapentin (Gabapentin 100 Mg Capsule) 100 mg PO TID PRN PRN Reason: neuropathic pain Last Admin: 04/01/21 04:35 Dose: 100 mg Documented by: Haloperidol (Haloperidol 5 Mg Tablet) 5 mg PO Q4H PRN PRN Reason: psychotic agitation Last Admin: 03/28/21 19:46 Dose: 5 mg Documented by: Hydroxyzine HCl (Hydroxyzine Hcl 50 Mg Tablet) 50 mg PO Q6H PRN PRN Reason: Anxiety Last Admin: 03/30/21 21:25 Dose: 50 mg Documented by: Ibuprofen (Ibuprofen 600 Mg Tablet) 600 mg PO Q6H PRN PRN Reason: Pain, Mild (Pain Scale 1-3) Last Admin: 04/02/21 10:14 Dose: 600 mg Documented by: Levothyroxine Sodium (Levothyroxine Sodium 25 Mcg Tablet) 25 mcg PO DAILY@0600 ON LICENSE OF [facility] Last Admin: 04/02/21 05:07 Dose: 25 mcg Documented by: Lisinopril (Lisinopril 5 Mg Tablet) 5 mg PO DAILY ON LICENSE OF [facility]; Protocol Last Admin: 04/02/21 08:52 Dose: 5 mg Documented by: Lorazepam (Lorazepam 1 Mg Tablet) 1 mg PO Q4H PRN PRN Reason: agitation Last Admin: 04/01/21 08:19 Dose: 1 mg Documented by: Magnesium Hydroxide (Milk Of Magnesia 30 Ml Oral.Susp) 30 ml PO DAILY PRN PRN Reason: Constipation Multi-Ingred Cream/Lotion/Oil/Oint (Mineral Oil/Petrolatum,White 106 Gm Tube) 1 appl TOPICAL TID PRN; Protocol PRN Reason: Dry Skin Last Admin: 03/31/21 21:25 Dose: 1 appl Documented by: Naltrexone HCl (Naltrexone Hcl 50 Mg Tablet) 25 mg PO DAILY [facility] Last Admin: 04/02/21 10:21 Dose: 25 mg Documented by: Nicotine Polacrilex (Nicotine Polacrilex 2 Mg Gum) 4 mg BUCCAL Q2H PRN PRN Reason: Nicotine Cravings Last Admin: 04/02/21 10:14 Dose: 4 mg Documented by: Omeprazole (Omeprazole 20 Mg Capsule.Dr) 20 mg PO DAILY@0630 ON LICENSE OF [facility] Last Admin: 04/02/21 05:07 Dose: 20 mg Documented by: Paliperidone (Paliperidone Er 3 Mg Tab.Er.24) 3 mg PO BEDTIME JO[facility] DANIEL Last Admin: 04/01/21 20:24 Dose: Not Given Documented by: Prazosin HCl (Prazosin Hcl 5 Mg Capsule) 5 mg PO BEDTIME [facility]ANI[facility]; Protocol Last Admin: 04/01/21 20:25 Dose: Not Given Documented by: Trazodone HCl (Trazodone Hcl 50 Mg Tablet) 50 mg PO BEDTIME PRN PRN Reason: Insomnia Trolamine Salicylate/Aloe Vera (Trolamine Salicylate 10%/Aloe Cream 35.4 Gm) 1 appl TOPICAL QID PRN PRN Reason: arthritis pain knee Last Admin: 03/31/21 21:25 Dose: 1 appl Documented by: Allergies Allergies Allergy/AdvReac Type Severity Reaction Status Date / Time hydromorphone Allergy Intermediate Rash Verified 03/11/21 12:32 acyclovir Allergy Unknown Unknown Verified 03/24/21 17:46 insect venom [INSECT BITES] Allergy Unknown UNKNOWN Verified 01/24/21 15:32 sulfamethoxazole Allergy Unknown Anaphylaxis Verified 03/17/21 11:12 [From BACTRIM] trimethoprim [From BACTRIM] Allergy Unknown Anaphylaxis Verified 03/17/21 11:12 Assessment & Plan Assessment & Plan (1) Bipolar 1 disorder, manic, moderate: Status: Acute Code(s): F31.12 - Bipolar disorder, current episode manic without psychotic features, moderate (2) PTSD (post-traumatic stress disorder): Status: Acute Code(s): F43.10 - Post-traumatic stress disorder, unspecified (3) Osteoarthritis of right knee: Status: Acute Code(s): M17.11 - Unilateral primary osteoarthritis, right knee (4) Hypertension: Status: Acute Code(s): I10 - Essential (primary) hypertension Plan Atiya is a 45-year-old female who carries a dx of Bipolar I disorder. Pt is known to [facility], has hx of manic episodes with sx of hyposomnia and impulsivity. She presented to unit for manic/psychotic symptoms and is being restarted on medication 03/29 patient has significantly improved since starting Invega. Patient speech and behaviors are organized. She is a little depressed but is feeling better. Denies any SI or HI. Expressed struggle she has with her family relationships. 03/30 continuing to stabilize Wants to get on naltrexone 03/31 High School Social Studies Tutor called pharmacist at [facility] to clarify and pharmacist there told rfp writer the following: Pharmacist at [facility] said pt's VNA contacted who said patient got Invega sustenna 156mg IM on 03/03/21 at [facility] (she was there for about 1 day; this is about the time she was due for it) She went to [facility] ED soon after and received Invega Sustenna 78mg IM on 03/10/21 since it was decided she needed dose increased to 234mg monthly (up from 156mg Qmonth) At [facility] ED her depakote was ER but increased to 1500mg total daily dose. High School Social Studies Tutor and patient discussed extended release Depakote verse immediate release Depakote, referencing discussion from past admission when she reported that her outpatient GI doctor recommended immediate release given history of abdominal surgery (cholecystectomy?). It is unclear what caused patient's disruption. She was discharged in December on Depakote ER 1250mg with a plan to discuss whether to switch to immediate release with outpatient provider; patient's Depakote levels are chronically low despite consistent report that she takes Depakote. Patient did get her Invega Sustenna 156 mg on 01/31 however also around mid or late January patient relapsed with alcohol. Patient agrees it is possible that wall using alcohol she would intermittently forget to take her Depakote maker increasingly vulnerable to manic episode. However despite the fact that she got her February dose of Invega Sustenna (At [facility] 156mg- which she dose not remember) and at an increased amount (an additional 78mg at [facility]- which she does not remember), she remained floridly manic until this admission. And it seemed that her sonya and psychosis only started to subside once she got to this unit and received an additional Invega Sustenna injection plus PO Invega. It is thus not clear what patient needs for medication to stay stable. It is not clear the role alcohol plays and destabilizing patient despite p.m. medication 04/01 Patient agrees it is not clear why she had a manic episode other than it is most likely that she started drinking and stopped taking some portion of her Depakote, likely bedtime doses. She agrees with plan for now to have Depakote immediate release 500 in the morning and 1000 q.h.s.. High School Social Studies Tutor notes that patient is currently calm and stable without manic symptoms, sleeping through the night, logical and organized in her thinking and behavior. This was also true at her last discharge when she was only on Invega Sustenna 156 mg and on which she remains stable for over a month. At this point rfp writer is not sure that patient needs to be on increased Invega Sustenna which will also increase risk of side effects. Patient agrees with current plan to remained 156 mg however is open to having increased if it is determined necessary. Patient asks rfp writer to call her daughter to see if her daughter can shed any light on what may have triggered manic episode. 04/02/21: Weekend coverage-Continue plan of care. PLAN: CV Q 15 minute checks will DC PO Invega 3 mg qhs; however, will restart if pt again becomes labile/psychotic symptoms CHANGED TO Depakote IMMEDIATE RELEASE DEPAKOTE IR 500 Q.A.M. DEPAKOTE IR 1000 Q.H.S. Patient received Invega Sustenna 234 mg on 03/28 (Invega sustenna 156mg IM on 03/03/21 at [facility] (she was there for about 1 day; this is about the time she was due for it) Invega Sustenna 78mg IM on 03/10/21 since it was decided she needed dose increased to 234mg monthly (up from 156mg Qmonth) =total dose of Invega Sustenna 234mg in February) DISCONTINUE Invega Sustenna 156 mg IM due on 04/04 since medication regimen needs to be reviewed further -Naltrexone 25mg daily (will make appointment for [facility]) -will get f/u lfts' Pt would like to resume VNA services upon discharge and have a locked box for her meds, as she has a hx of overusing medications for sleep and pain. otherwise: Monitor response to medications. Monitor for safety in the milieu. Discharge on stabilization. Patient seen. Chart reviewed. Discussed with team. Obtain collateral contact info as needed I spent 25 minutes with the patient and/or on the patient floor today, greater than?50% of which was spent counseling/coordinating care. Patient educated on: therapeutic strategies and other Informed Consent: understands Reason for contiued inpatient stay Substantial Risk for: rapid decompensation
[2021-04-02] MEDS: hydrOXYzine HCL 50 MG TABLET PO (12:32)
[2021-04-02] MEDS: LORazepam 1 MG TABLET PO (17:12)
[2021-04-02] MEDS: Gabapentin 100 MG CAPSULE PO (19:31)
[2021-04-02 21:45] VITALS: BP 136/83; PULSE 82; TEMP 36.8; O2SAT 96
[2021-04-02] MEDS: Paliperidone ER 3 MG TAB.ER.24 PO (21:56)
[2021-04-02] MEDS: Prazosin HCL 5 MG CAPSULE PO (21:56)
[2021-04-02] MEDS: Divalproex Sodium 500 MG TABLET.DR 1000 MG PO (21:56)
[2021-04-03] MEDS: Levothyroxine Sodium 25 MCG TABLET PO (04:49)
[2021-04-03] MEDS: Omeprazole 20 MG CAPSULE.DR PO (04:49)
[2021-04-03] MEDS: Ibuprofen 600 MG TABLET PO ×2 (04:51→12:14)
[2021-04-03] MEDS: Nicotine Polacrilex 2 MG GUM 4 MG BUCCAL ×3 (04:53→17:03)
[2021-04-03 09:00] VITALS: BP 136/99; PULSE 88; TEMP 36.6
[2021-04-03] MEDS: Naltrexone HCl 50 MG TABLET 25 MG PO (09:03)
[2021-04-03] MEDS: lisinopriL 5 MG TABLET PO (09:04)
[2021-04-03] MEDS: Pyridoxine HCl (Vitamin B6) 50 MG TABLET 25 MG PO (09:04)
[2021-04-03] MEDS: Divalproex Sodium 500 MG TABLET.DR PO (09:04)
--- NOTE | 2021-04-03 09:26 | HO.PSYCHPN ---
Subjective Subjective Date of Service: 04/03/21 Reason For Visit: Bipolar Disorder PTSD Interim History: Atiya denies issues to discuss today. She is expecting discharge this week. She is attentive and supportive to her room-mate who is appreciative. She has been visable in milieu, interactive, attempting to save herself a front row seat for half-time show this evening during the Super[place]owl. She denies questions/concerns about her medicines and denies adverse effects. Medication Compliance: Yes Side effects from medications: No Attending Groups: Yes Review of Systems Acute medical concerns: No Medical Review of Systems: unchanged Review of Systems Psychiatric: Reports anxiety and Reports mood swings Mental Status Exam Mental Status Exam Patient Appearance: Appropriate Patient Orientation: Person, Place, Time and Situation Level of Consciousness: Alert Patient Behavior: Appropriate, Talkative and Good Eye Contact Mood Description: Apprehensive Affect Description: Labile Patient Cognition Impaired: No Ability to Follow Directions: Good Speech Pattern: Spontaneous Speech Memory Description: Intact and Episodic Impaired Hallucinations: None Delusions: Not Present Thought Process: Distracted and Goal Oriented Thought Content: positive for Racing, positive for Goal Oriented, positive for Tangential and positive for Suicidal Ideation (denies) Judgement: Fair Diagnostics Vital Signs (24Hr): Vital Signs - 24 hr 04/02/21 21:45 Temperature 98.2 F Pulse Rate 82 Blood Pressure 136/83 Pulse Oximetry 96 Medications Medications Current Medications Acetaminophen (Acetaminophen 325 Mg Tablet) 650 mg PO Q6H PRN PRN Reason: Headache/Pain Mild Scale (1-3) Last Admin: 03/26/21 18:03 Dose: 650 mg Documented by: Al Hydroxide/Mg Hydroxide (Magnesium Hydrox/Alum Hydrox 30 Ml Oral.Susp) 30 ml PO Q6H PRN PRN Reason: Heartburn/Nausea Albuterol Sulfate (Albuterol Sulfate 90 Mcg 8 Gm Inhaler) 2 puff INHALE RQ6H PRN PRN Reason: wheeze Cyclobenzaprine HCl (Cyclobenzaprine Hcl 5 Mg Tablet) 5 mg PO DAILY PRN PRN Reason: spasm Last Admin: 04/01/21 13:42 Dose: 5 mg Documented by: Diphenhydramine HCl (Diphenhydramine Hcl 25 Mg Tablet) 50 mg PO Q4H PRN PRN Reason: agitation Last Admin: 03/31/21 21:31 Dose: 50 mg Documented by: Divalproex Sodium (Divalproex Sodium 500 Mg Tablet.) 1,000 mg PO BEDTIME [facility] Last Admin: 04/02/21 21:56 Dose: 1,000 mg Documented by: Divalproex Sodium (Divalproex Sodium 500 Mg Tablet.) 500 mg PO DAILY [facility] Last Admin: 04/03/21 09:04 Dose: 500 mg Documented by: Docusate Sodium (Docusate Sodium 100 Mg Capsule) 100 mg PO BID PRN PRN Reason: Constipation Last Admin: 03/27/21 10:02 Dose: 100 mg Documented by: Gabapentin (Gabapentin 100 Mg Capsule) 100 mg PO TID PRN PRN Reason: neuropathic pain Last Admin: 04/02/21 19:31 Dose: 100 mg Documented by: Haloperidol (Haloperidol 5 Mg Tablet) 5 mg PO Q4H PRN PRN Reason: psychotic agitation Last Admin: 03/28/21 19:46 Dose: 5 mg Documented by: Hydroxyzine HCl (Hydroxyzine Hcl 50 Mg Tablet) 50 mg PO Q6H PRN PRN Reason: Anxiety Last Admin: 04/02/21 12:32 Dose: 50 mg Documented by: Ibuprofen (Ibuprofen 600 Mg Tablet) 600 mg PO Q6H PRN PRN Reason: Pain, Mild (Pain Scale 1-3) Last Admin: 04/03/21 04:51 Dose: 600 mg Documented by: Levothyroxine Sodium (Levothyroxine Sodium 25 Mcg Tablet) 25 mcg PO DAILY@0600 [facility] Last Admin: 04/03/21 04:49 Dose: 25 mcg Documented by: Lisinopril (Lisinopril 5 Mg Tablet) 5 mg PO DAILY [facility]; Protocol Last Admin: 04/03/21 09:04 Dose: 5 mg Documented by: Lorazepam (Lorazepam 1 Mg Tablet) 1 mg PO Q4H PRN PRN Reason: agitation Last Admin: 04/02/21 17:12 Dose: 1 mg Documented by: Magnesium Hydroxide (Milk Of Magnesia 30 Ml Oral.Susp) 30 ml PO DAILY PRN PRN Reason: Constipation Multi-Ingred Cream/Lotion/Oil/Oint (Mineral Oil/Petrolatum,White 106 Gm Tube) 1 appl TOPICAL TID PRN; Protocol PRN Reason: Dry Skin Last Admin: 03/31/21 21:25 Dose: 1 appl Documented by: Naltrexone HCl (Naltrexone Hcl 50 Mg Tablet) 25 mg PO DAILY [facility] Last Admin: 04/03/21 09:03 Dose: 25 mg Documented by: Nicotine Polacrilex (Nicotine Polacrilex 2 Mg Gum) 4 mg BUCCAL Q2H PRN PRN Reason: Nicotine Cravings Last Admin: 04/03/21 04:53 Dose: 4 mg Documented by: Omeprazole (Omeprazole 20 Mg Capsule.Dr) 20 mg PO DAILY@0630 [facility] Last Admin: 04/03/21 04:49 Dose: 20 mg Documented by: Paliperidone (Paliperidone Er 3 Mg Tab.Er.24) 3 mg PO BEDTIME [facility] DANIEL Last Admin: 04/02/21 21:56 Dose: 3 mg Documented by: Prazosin HCl (Prazosin Hcl 5 Mg Capsule) 5 mg PO BEDTIME [facility]; Protocol Last Admin: 04/02/21 21:56 Dose: 5 mg Documented by: Pyridoxine HCl (Pyridoxine Hcl (Vitamin B6) 50 Mg Tablet) 25 mg PO DAILY [facility] Last Admin: 04/03/21 09:04 Dose: 25 mg Documented by: Trazodone HCl (Trazodone Hcl 50 Mg Tablet) 50 mg PO BEDTIME PRN PRN Reason: Insomnia Trolamine Salicylate/Aloe Vera (Trolamine Salicylate 10%/Aloe Cream 35.4 Gm) 1 appl TOPICAL QID PRN PRN Reason: arthritis pain knee Last Admin: 04/03/21 04:49 Dose: 1 appl Documented by: Allergies Allergies Allergy/AdvReac Type Severity Reaction Status Date / Time hydromorphone Allergy Intermediate Rash Verified 03/11/21 12:32 acyclovir Allergy Unknown Unknown Verified 03/24/21 17:46 insect venom [INSECT BITES] Allergy Unknown UNKNOWN Verified 01/24/21 15:32 sulfamethoxazole Allergy Unknown Anaphylaxis Verified 03/17/21 11:12 [From BACTRIM] trimethoprim [From BACTRIM] Allergy Unknown Anaphylaxis Verified 03/17/21 11:12 Assessment & Plan Assessment & Plan (1) Bipolar 1 disorder, manic, moderate: Status: Acute Code(s): F31.12 - Bipolar disorder, current episode manic without psychotic features, moderate (2) PTSD (post-traumatic stress disorder): Status: Acute Code(s): F43.10 - Post-traumatic stress disorder, unspecified (3) Osteoarthritis of right knee: Status: Acute Code(s): M17.11 - Unilateral primary osteoarthritis, right knee (4) Hypertension: Status: Acute Code(s): I10 - Essential (primary) hypertension Plan Atiya is a 45-year-old female who carries a dx of Bipolar I disorder. Pt is known to [facility], has hx of manic episodes with sx of hyposomnia and impulsivity. She presented to unit for manic/psychotic symptoms and is being restarted on medication 03/29 patient has significantly improved since starting Invega. Patient speech and behaviors are organized. She is a little depressed but is feeling better. Denies any SI or HI. Expressed struggle she has with her family relationships. 03/30 continuing to stabilize Wants to get on naltrexone 03/31 Graphic Pre Press Trades Worker called pharmacist at [facility] to clarify and pharmacist there told sign writer letterer or painter the following: Pharmacist at [facility] said pt's VNA contacted who said patient got Invega sustenna 156mg IM on 03/03/21 at [facility] (she was there for about 1 day; this is about the time she was due for it) She went to [facility] ED soon after and received Invega Sustenna 78mg IM on 03/10/21 since it was decided she needed dose increased to 234mg monthly (up from 156mg Qmonth) At [facility] ED her depakote was ER but increased to 1500mg total daily dose. Graphic Pre Press Trades Worker and patient discussed extended release Depakote verse immediate release Depakote, referencing discussion from past admission when she reported that her outpatient GI doctor recommended immediate release given history of abdominal surgery (cholecystectomy?). It is unclear what caused patient's disruption. She was discharged in December on Depakote ER 1250mg with a plan to discuss whether to switch to immediate release with outpatient provider; patient's Depakote levels are chronically low despite consistent report that she takes Depakote. Patient did get her Invega Sustenna 156 mg on 01/31 however also around mid or late January patient relapsed with alcohol. Patient agrees it is possible that wall using alcohol she would intermittently forget to take her Depakote maker increasingly vulnerable to manic episode. However despite the fact that she got her February dose of Invega Sustenna (At [facility] 156mg- which she dose not remember) and at an increased amount (an additional 78mg at [facility] ED- which she does not remember), she remained floridly manic until this admission. And it seemed that her sonya and psychosis only started to subside once she got to this unit and received an additional Invega Sustenna injection plus PO Invega. It is thus not clear what patient needs for medication to stay stable. It is not clear the role alcohol plays and destabilizing patient despite p.m. medication 04/01 Patient agrees it is not clear why she had a manic episode other than it is most likely that she started drinking and stopped taking some portion of her Depakote, likely bedtime doses. She agrees with plan for now to have Depakote immediate release 500 in the morning and 1000 q.h.s.. Graphic Pre [employer] Trades Worker notes that patient is currently calm and stable without manic symptoms, sleeping through the night, logical and organized in her thinking and behavior. This was also true at her last discharge when she was only on Invega Sustenna 156 mg and on which she remains stable for over a month. At this point sign writer letterer or painter is not sure that patient needs to be on increased Invega Sustenna which will also increase risk of side effects. Patient agrees with current plan to remained 156 mg however is open to having increased if it is determined necessary. Patient asks sign writer letterer or painter to call her daughter to see if her daughter can shed any light on what may have triggered manic episode. 04/02/21: Weekend coverage-Continue plan of care. 04/03/21: Weekend coverage- Continue plan of care. Discharge planning PLAN: CV Q 15 minute checks will DC PO Invega 3 mg qhs; however, will restart if pt again becomes labile/psychotic symptoms CHANGED TO Depakote IMMEDIATE RELEASE DEPAKOTE IR 500 Q.A.M. DEPAKOTE IR 1000 Q.H.S. Patient received Invega Sustenna 234 mg on 03/28 (Invega sustenna 156mg IM on 03/03/21 at [facility] (she was there for about 1 day; this is about the time she was due for it) Invega Sustenna 78mg IM on 03/10/21 since it was decided she needed dose increased to 234mg monthly (up from 156mg Qmonth) =total dose of Invega Sustenna 234mg in February) DISCONTINUE Invega Sustenna 156 mg IM due on 04/04 since medication regimen needs to be reviewed further -Naltrexone 25mg daily (will make appointment for [facility]) -will get f/u lfts' Pt would like to resume VNA services upon discharge and have a locked box for her meds, as she has a hx of overusing medications for sleep and pain. otherwise: Monitor response to medications. Monitor for safety in the milieu. Discharge on stabilization. Patient seen. Chart reviewed. Discussed with team. Obtain collateral contact info as needed I spent 15 minutes with the patient and/or on the patient floor today, greater than?50% of which was spent counseling/coordinating care. Patient educated on: therapeutic strategies Informed Consent: understands Reason for contiued inpatient stay Substantial Risk for: harm to self, inability to function and rapid decompensation
[2021-04-03] MEDS: Acetaminophen 325 MG TABLET 650 MG PO (17:03)
[2021-04-03 21:00] VITALS: BP 107/56; PULSE 65; TEMP 36.6
[2021-04-03] MEDS: Paliperidone ER 3 MG TAB.ER.24 PO (21:23)
[2021-04-03] MEDS: Prazosin HCL 5 MG CAPSULE PO (21:23)
[2021-04-03] MEDS: traZODone HCL 50 MG TABLET PO (21:23)
[2021-04-03] MEDS: Divalproex Sodium 500 MG TABLET.DR 1000 MG PO (21:23)
[2021-04-04] MEDS: Nicotine Polacrilex 2 MG GUM 4 MG BUCCAL ×2 (06:02→09:24)
[2021-04-04] MEDS: Levothyroxine Sodium 25 MCG TABLET PO (07:03)
[2021-04-04] MEDS: Omeprazole 20 MG CAPSULE.DR PO (07:03)
[2021-04-04 08:11] LABS: Ammonia 22 umol/L (13-55)
[2021-04-04 08:20] LABS: Alanine Aminotransferase 10 U/L (0-31); Albumin Level 4.1 g/dL (3.5-5.0); Alkaline Phosphatase 69 U/L (39-117); Aspartate Amino Transferase 12 U/L (5-31); Bilirubin Direct 0.2 mg/dL (0.0-0.5); Bilirubin Total 0.3 mg/dL (0.0-1.0); Total Protein 7.2 g/dL (6.5-8.0)
[2021-04-04 08:24] LABS: Valproate 48.9 mcg/mL (50.0-100.0)
[2021-04-04] MEDS: Naltrexone HCl 50 MG TABLET 25 MG PO (09:23)
[2021-04-04] MEDS: Divalproex Sodium 500 MG TABLET.DR PO ×2 (09:24→11:49)
[2021-04-04] MEDS: Pyridoxine HCl (Vitamin B6) 50 MG TABLET 25 MG PO (09:24)
[2021-04-04] MEDS: lisinopriL 5 MG TABLET PO (09:24)
--- NOTE | 2021-04-04 10:50 | P.DS_ITS ---
DS: Providers Provider Date of Service: 04/04/21 Date of admission: 03/24/21 16:06 Date of discharge: 04/04/21 Primary care physician: Maddie Kim MD Admitting clinician: Jennifer Rao Consults: 03/24/21 15:24 Consult to Hospitalist Routine Consulting Provider: Hospitalist Reason For Exam: Transfer from [facility] Attending physician on discharge: Justice Summers DS: Diagnosis Discharge Diagnosis (1) Bipolar 1 disorder, manic, moderate: Status: Acute (2) PTSD (post-traumatic stress disorder): Status: Acute (3) Osteoarthritis of right knee: Status: Acute (4) Hypertension: Status: Acute DS: Medications Discharge Medications Home Medications: Home Medications Medication Instructions Recorded Confirmed terbinafine HCl 250 mg tablet 1 tab PO DAILY 03/24/21 03/24/21 Previous Rx's Medication Instructions Recorded ferrous sulfate 324 mg (65 mg 324 mg PO DAILY 30 Days #30 tab 01/05/21 iron) tablet,delayed release Narcan Prefilled 4 mg INTRANASAL ONCE PRN #1 kit 04/04/21 albuterol sulfate 90 mcg/actuation 2 puff INHALATION QID PRN 30 Days 04/04/21 aerosol inhaler #6.7 g cyclobenzaprine 5 mg tablet 5 mg PO DAILY PRN 30 Days #15 tab 04/04/21 diphenhydramine HCl 25 mg tablet 50 mg PO Q4H PRN 30 Days #60 tab 04/04/21 (Allergy Relief (diphenhydramine)) divalproex 500 mg tablet,delayed 1,000 mg PO BID 30 Days #120 tab 04/04/21 release hydroxyzine HCl 50 mg tablet 50 mg PO TID PRN 30 Days #90 tab 04/04/21 levothyroxine 25 mcg tablet 25 mcg PO DAILY 30 Days #30 tab 04/04/21 lisinopril 5 mg tablet 5 mg PO DAILY 30 Days #30 tab 04/04/21 naltrexone 50 mg tablet 25 mg PO DAILY 30 Days #15 tab 04/04/21 nicotine (polacrilex) 2 mg gum 4 mg BUCCAL Q2H PRN 30 Days #100 ea 04/04/21 omeprazole 20 mg capsule,delayed 20 mg PO DAILY 30 Days #30 cap 04/04/21 release paliperidone palmitate 156 mg/mL 156 mg IM Q30D 30 Days #1 ml 04/04/21 intramuscular syringe (Invega Sustenna) prazosin 5 mg capsule 5 mg PO BEDTIME 30 Days #30 cap 04/04/21 pyridoxine (vitamin B6) 50 mg 25 mg PO DAILY 30 Days #15 tab 04/04/21 tablet trazodone 50 mg tablet 50 mg PO BEDTIME PRN 30 Days #30 04/04/21 tab trolamine salicylate-aloe vera 10 1 appl TOPICAL QID PRN 30 Days 04/04/21 % topical cream (Aspercreme with #35.4 g Aloe) Mental Status Exam Mental Status Exam Narrative: A&O. In blue hooded sweatshirt; hair adequately groomed; pt is polite, cooperative and calm with good eye contact. No Tics or Tremors. No abnormal involuntary movements. Mood is good and affect congruent, bright, friendly; no lability; organized behavior. Speech is spontaneous, not pressured and normal volume, rate, prosody; no latency.? Thought process is? goal oriented and linear; thought content is on treatment, discharge Denies SI/SIB/HI. Denies A/VH; no delusional content; No known cognitive or memory impairment. Insight/ Judgment are fair Data Data Completed and Pending Completed studies during hospitalization [Text1]: 04/01/21 04/04/21 04/04/21 08:02 07:57 07:57 Total Bilirubin 0.4 0.3 Direct Bilirubin 0.2 0.2 AST 14 12 ALT 10 10 Alkaline Phosphatase 67 69 Ammonia 22 Total Protein 6.9 7.2 Albumin 3.9 4.1 Valproic Acid 48.9 L DS: Summary Hospital Course Hospital Course: Atiya is a 45-year-old female who carries a dx of Bipolar I disorder, ptsd, substance abuse. Pt is known to [facility] M[facility], has hx of manic episodes with sx of hyposomnia and impulsivity.? She presented to unit for manic/psychotic symptoms and was restarted on medication Patient was mood labile at 1st, laughing or crying inappropriately, with disorganized speech. However she soon improved with medication and after several days, returned to baseline and going forward was appropriate with peers and staff, invested in treatment and remained with organized speech and behavior and without any AVH, SI/HI. Once stable, patient remained calm and without manic symptoms, sleeping through the night, logical and organized in her thinking and behavior.? Patient remains so on day of discharge, optimistic about staying sober and staying stable. She was future oriented and returning home where she lives with her daughter who is supportive. Patient wanted to discharge. Patient was not in imminent risk of harm to self or others and was appropriate for discharge. Regarding medication management, see below: Medication management during this admission: Patient wanted to get on naltrexone for alcohol cravings which was started and well tolerated. Patient was given Invega Sustenna 234 mg on 03/28, as pharmacy scripts showed that she had missed her outpatient Invega Sustenna 156 mg shot this past February. However it was later learned that patient had already gotten Invega sustained injection 1st at a 1 day psychiatric admission at [facility] and then at [facility] ED about a week later: -Person Investigator called pharmacist at [facility] to clarify and pharmacist there told journalists and other writers the following: -Pharmacist at [facility] said pt's [facility] contacted who said patient got Invega sustenna 156mg IM on 03/03/21 at [facility] (she was there for about 1 day; this is about the time she was due for it; pt did not remember this). -She went to [facility] ED soon after and received Invega Sustenna 78mg IM on 03/10/21 since it was decided she needed dose increased to 234mg monthly (up from 156mg Qmonth; pt did not remeber getting this either). At [facility] ED her depakote was ER but increased to 1500mg total daily dose. Person Investigator and patient try to figure out what caused her to become unstable and have and other manic episode resulting in this admission. She was stable when discharged in December on Depakote ER 1250mg with a plan to discuss whether to switch to immediate release with outpatient provider (Person Investigator and patient discussed extended release Depakote verse immediate release Depakote, referencing discussion from past admission when she reported that her outpatient GI doctor recommended immediate release given history of abdominal surgery (patient's Depakote levels are chronically low despite consistent report that she takes Depakote)). Patient remained on Depakote however at some point in early February became unstable. This happened despite the fact that she got her Invega Sustenna 156 mg on 01/31 when it was due. Patient agrees it is possible that while using alcohol she would intermittently forget to take her Depakote, especially bedtime dose, making her increasingly vulnerable to manic episode.? This seems to be the most likely explanation because patient had become floridly manic before she was due for her February dose of Invega Sustenna (which she got at [facility] 156mg when it was actually due). Patient remained manic even though she got an additional Invega Sustenna 78mg dose a week later at [facility] and Patient remained floridly manic until this admission.? At 1st it seemed that patient's sonya and psychosis only started to subside when she got another Invega Sustenna 234 mg injection along with p.o. Invega 3 mg daily; however it is also possible that she was still inconsistently taking Depakote and that being back on this consistently is what helped her become stable. Person Investigator and patient discussed this at length and patient agreed to change from extended release Depakote to delayed release Depakote (which is like an intermediate) and increase it to 1000 mg b.i.d.. On the unit she was on 1500 mg b.i.d. and her Depakote level is still subtherapeutic. Patient agreed to increase on day of discharge and agreed to follow-up by getting Depakote level and LFTs in the community and discussing th is with her outpatient provider. At this point, it seems less likely that patient needs her Invega Sustenna increased; as this will also increase risk of side effects, patient agrees and prefers to remain on Depakote Sustenna 156 mg q.month and see if higher dose of Depakote helps her stay stable. Time spent discussing smoking cessation with patient: 3 to 10 minutes Status at Discharge Functional status at discharge: independent ambulation Overall status at discharge: patient is back to baseline Time Spent with Patient Time attestation: Total time spent providing and/or coordinating discharge services: Time spent: Greater than 30 minutes Discharge Plan Discharge Patient Disposition: Home, Self-Care Discharge Diagnosis: bipolar disorder, type 1, recurrent, severe in full remission Referrals: Willie Gage Visiting RN [Other] - 1 Week (Fax- [phone] visiting rn will resume after D/C) Sunitha Freedman (Vivitrol intake appointment) [Other] - 04/07/21 10:30 am (The intake appointment is in-office at the above location. You will receive your Vivitrol injection at the following appointment) Sunitha Carlson ([facility] eligibility window caser) [Other] - 1 Week (You have been re-referred for [facility] services again and should hear from [facility] within a week following your discharge. If not, please contact your [facility] window caser at the above number to discuss your referral status) CCA: Fadia Galvna ([facility] Seal Mixing Operator) [Other] - 1 Week (Please call your CCA window caser at the above number to discuss your active [employer] referral and schedule an in-home evaluation) Therapist: Sunitha Orozco ([facility]) [Other] - 04/07/21 11:30 am (*Telehealth* ) Psych Prescriber: Marcos Kaur ([facility]) [Other] - 04/09/21 11:00 am (*Telehealth* ) Maddie Kim MD [Primary Care Provider] - 04/12/21 9:30 am (in house , WITH DR. ANDERSON) Discharge Medications: New divalproex 500 mg Tablet,Delayed Release (Dr/Ec) 1,000 mg PO BID 30 Days Qty: 120 0RF naltrexone 50 mg Tablet 25 mg PO DAILY 30 Days Qty: 15 0RF trazodone 50 mg Tablet 50 mg PO BEDTIME PRN (Reason: Insomnia) 30 Days Qty: 30 0RF Aspercreme with Aloe 10 % Cream 1 appl topical QID PRN (Reason: arthritis pain knee) 30 Days Qty: 35.4 0RF pyridoxine (vitamin B6) 50 mg Tablet 25 mg PO DAILY 30 Days Qty: 15 0RF hydroxyzine HCl 50 mg Tablet 50 mg PO TID PRN (Reason: Anxiety) 30 Days Qty: 90 0RF Continued terbinafine HCl 250 mg tablet 1 tab PO DAILY 0RF nicotine (polacrilex) 2 mg Gum 4 mg buccal Q2H PRN (Reason: Nicotine Cravings) 30 Days Qty: 100 0RF levothyroxine 25 mcg tablet 25 mcg PO DAILY 30 Days Qty: 30 3RF prazosin 5 mg capsule 5 mg PO BEDTIME 30 Days Qty: 30 0RF diphenhydramine HCl [Allergy Relief(diphenhydramin)] 25 mg Tablet 50 mg PO Q4H PRN (Reason: anxiety) 30 Days Qty: 60 0RF omeprazole 20 mg capsule,delayed release(DR/EC) 20 mg PO DAILY 30 Days Qty: 30 0RF lisinopril 5 mg tablet 5 mg PO DAILY 30 Days Qty: 30 0RF albuterol sulfate 90 mcg/actuation HFA aerosol inhaler 2 puff inhalation QID PRN (Reason: Shortness Of Breath Or Wheezing) 30 Days Qty: 6.7 0RF Invega Sustenna 156 mg/mL Syringe 156 mg IM Q30D 30 Days Qty: 1 0RF Rx Instructions: DUE 04/22/21 Narcan Prefilled 4 units nasal spray syringe 4 mg intranasal ONCE PRN (Reason: Opioid Overdose) Qty: 1 0RF ferrous sulfate 324 mg (65 mg iron) Tablet,Delayed Release (Dr/Ec) 324 mg PO DAILY 30 Days Qty: 30 0RF Changed cyclobenzaprine 5 mg tablet 5 mg PO DAILY PRN (Reason: muscle spasm) 30 Days Qty: 15 0RF Discontinued nicotine 21 mg/24 hr Patch 24 Hour 21 mg transdermal DAILY PRN (Reason: smoking cessation) 28 Days Qty: 28 0RF divalproex 500 mg Tablet,Delayed Release (Dr/Ec) 500 mg PO BID 30 Days Qty: 60 0RF gabapentin 100 mg Capsule 100 mg PO TID Qty: 0 0RF Label Comments: has not filled since 12/2020 Discharge Orders: Discharge Order (Routine); Ordered 04/04/21 Ordered By: Justice Summers Diet: regular diet Activity on Discharge: As tolerated Stand Alone Forms: Patient Portal Discharge page, Community Support Other Ambulatory Orders: Ammonia (Routine) Timeframe: [id number] Facility: [facility] - Location: Laboratory Ordered By: Justice Summers Liver Panel (Routine) Timeframe: [id number] Facility: [facility] - Location: Laboratory Ordered By: Justice Summers Valproate (Routine) Timeframe: [id number] Facility: [facility] - Location: Laboratory Ordered By: Justice Summers Care Plan Goals: Maintain mood and safe behaviors Take medications as prescribed Continue to pursue sobriety Practice coping skills Continue with outpatient providers and reach out to them as needed Health Concerns: Mood stability and behaviors Sobriety Chronic Knee pain Plan of Treatment: Follow up with your PCP, psychiatric provider and other outpatient providers regarding above concerns Take medications as prescribed Assessment: Risk assessment at time of discharge:? Patient was interviewed prior to discharge and found to be fully oriented and without any SI or HI. Patient has insight and demonstrates good judgment in terms of wanting to pursue treatment. Patient is not in imminent risk of harm to self or others and has a safety plan that includes presenting to the closest ER or calling 911 if feeling unsafe.? Patient has been observed closely by nursing and unit staff throughout admission; patient has not engaged in any behaviors that suggest dangerousness to self or others and has demonstrated appropriate behaviors and impulse control Discharge Date/Time: 04/04/21 12:30
== END 2021-04-04 12:30 | disposition home or self-care (01) | DRG 885 ==
PROVIDERS: Clinical Nurse Specialist Psychiatric/Mental Health, Adult; Registered Nurse; Admitting Provider Psychiatry & Neurology Psychiatry; PCP General Practice; Visit Provider Psychiatry & Neurology Psychiatry
DX: F31.12 Bipolar disorder, current episode manic without psychotic features, moderate (principal); R45.851 Suicidal ideations; I10 Essential (primary) hypertension; M17.11 Unilateral primary osteoarthritis, right knee; F43.10 Post-traumatic stress disorder, unspecified; F17.210 Nicotine dependence, cigarettes, uncomplicated; Z88.3 Allergy status to other anti-infective agents; Z71.6 Tobacco abuse counseling; Z79.899 Other long term (current) drug therapy
CPT/HCPCS: 36415; 80061; 80076; 80164; 82140; 82607; 82746; 83036; 84439; 84443; J2426; Q0163

== ENCOUNTER 2021-04-11 07:42 | Outpatient (REF) | payer MEDICARE, SELFPAY ==
[2021-04-11 08:16] LABS: Ammonia 58 umol/L (13-55)
[2021-04-11 08:24] LABS: Alanine Aminotransferase 10 U/L (0-31); Alkaline Phosphatase 67 U/L (39-117); Aspartate Amino Transferase 13 U/L (5-31); Bilirubin Direct 0.2 mg/dL (0.0-0.5); Bilirubin Total 0.4 mg/dL (0.0-1.0); Total Protein 7.1 g/dL (6.5-8.0)
[2021-04-11 08:33] LABS: Valproate 75.7 mcg/mL (50.0-100.0)
== END 2021-04-11 07:43 | disposition home or self-care (01) ==
LOC: HO.LAB 07:42
PROVIDERS: PCP General Practice; Visit Provider Psychiatry & Neurology Psychiatry
DX: F14.10 Cocaine abuse, uncomplicated (principal); Z51.81 Encounter for therapeutic drug level monitoring
CPT/HCPCS: 36415; 80076; 80164; 82140

== ENCOUNTER → 2021-04-12 13:30 | Outpatient (BNVA) | payer MEDICARE, SELFPAY | PROVIDERS: Visit Provider Internal Medicine | DX: F14.10 Cocaine abuse, uncomplicated (principal); F11.10 Opioid abuse, uncomplicated; F10.10 Alcohol abuse, uncomplicated | CPT/HCPCS: 80305; 99202; 99212 ==

== ENCOUNTER → 2021-04-21 10:06 | Outpatient (BNVA) | payer MEDICARE, SELFPAY | PROVIDERS: PCP General Practice; Visit Provider Anesthesiology | DX: M17.11 Unilateral primary osteoarthritis, right knee (principal) | CPT/HCPCS: 99212 ==

== ENCOUNTER → 2021-04-28 16:11 | Outpatient (BNVA) | payer MEDICARE, SELFPAY | PROVIDERS: Visit Provider Nurse Practitioner Psychiatric/Mental Health | DX: F10.20 Alcohol dependence, uncomplicated (principal) | CPT/HCPCS: 80305; 81025; 96372; 99212 ==

== ENCOUNTER 2022-02-28 08:52 | Outpatient (REF) | payer MEDICARE, SELFPAY ==
--- NOTE | ~2022-02-28 | MM_ITS ---
EXAMINATION: MM SCREENING DIGITAL BREAST TOMOSYNTHESIS, BILATERAL CLINICAL INFORMATION: Screening. Asymptomatic. The lifetime risk of breast cancer based on the Tyrer-Cuzick Model is 8%. COMPARISON: Mammography: None. TECHNIQUE: Digital breast tomosynthesis is performed in both the craniocaudal and mediolateral oblique views along with computer-aided detection (CAD). Synthesized 2-D images are generated from the tomosynthesis. FINDINGS: There are scattered areas of fibroglandular density (ACR BI-RADS breast composition Category b). About the superior aspect of the right breast approximately 8 cm from the nipple, there is question of asymmetric density which appears to be overlying a possible circumscribed fat density structure. This may possibly represent a hamartoma. Spot compression view is recommended. I do not see a definite correlate on craniocaudal view. Left breast appears unremarkable without abnormal dominant mass or suspicious grouping of microcalcifications. MM/MM tomosynthesis screening BI IMPRESSION: Right breast density on mediolateral oblique projection for further evaluation with spot compression view. ASSESSMENT: BI-RADS 0: Incomplete - Need Additional Imaging Evaluation. RECOMMENDATION: 1. Additional views of the right breast. 2. Targeted ultrasound if warranted after review of the additional views. 3. Radiology department staff will contact the patient for additional imaging. This patient's information was entered into a reminder system with a target due date for their next mammogram.
== END 2022-02-28 08:53 | disposition home or self-care (01) ==
LOC: HO.MAMMO 08:52
PROVIDERS: PCP General Practice; Visit Provider General Practice
DX: Z12.31 Encounter for screening mammogram for malignant neoplasm of breast (principal)
CPT/HCPCS: 77063; 77067

== ENCOUNTER 2022-04-12 14:59 | Outpatient (REF) | payer OTHER, SELFPAY ==
--- NOTE | ~2022-04-12 | MM_ITS ---
EXAMINATION: MM DIAGNOSTIC DIGITAL BREAST TOMOSYNTHESIS, RIGHT CLINICAL INFORMATION: Density superior right breast COMPARISON: Mammography: February 28, 2022 TECHNIQUE: Digital breast tomosynthesis is performed. 2D images are generated from the tomosynthesis. The following views are obtained: Full-field 90 degree right breast study as well as spot compression mediolateral oblique image. FINDINGS: There are scattered areas of fibroglandular density (ACR BI-RADS breast composition Category b). Additional views show no significant mass, architectural abnormality, or abnormal calcifications. Results are provided to the patient at time of visit by the technologist. MM/MM tomosynthesis added views R IMPRESSION: No persistence of right breast abnormality. ASSESSMENT: BI-RADS 1: Negative RECOMMENDATION: Routine annual mammography screening due in 12 months. This patient's information was entered into a reminder system with a target due date for their next mammogram.
== END 2022-04-12 15:00 | disposition home or self-care (01) ==
LOC: HO.MAMMO 14:59
PROVIDERS: PCP General Practice; Visit Provider General Practice
DX: R92.2 Inconclusive mammogram (principal)
CPT/HCPCS: 77061; 77065

== ENCOUNTER 2022-06-10 07:36 | Outpatient (REF) | payer OTHER, SELFPAY ==
[2022-06-10 08:26] LABS: Alanine Aminotransferase 19 U/L (0-31); Alkaline Phosphatase 79 U/L (39-117); Aspartate Amino Transferase 20 U/L (5-31); Bilirubin Direct 0.2 mg/dL (0.0-0.5); Bilirubin Total 0.6 mg/dL (0.0-1.0); Total Protein 6.9 g/dL (6.5-8.0)
== END 2022-06-10 07:37 | disposition home or self-care (01) ==
LOC: HO.LAB 07:36
PROVIDERS: PCP General Practice; Visit Provider Podiatrist
DX: B35.1 Tinea unguium (principal)
CPT/HCPCS: 36415; 80076

== ENCOUNTER 2022-09-11 13:07 | Outpatient (REF) | payer OTHER, SELFPAY ==
[2022-09-16 11:48] LABS: HPV 16 RNA NOT DETECTED (NOT DETECTED); HPV mRNA E6/E7 rflx Detected (Not Detected)
== END 2022-09-11 13:08 | disposition home or self-care (01) ==
LOC: HO.LNP 13:07
PROVIDERS: PCP General Practice; Visit Provider Obstetrics & Gynecology
DX: Z01.419 Encounter for gynecological examination (general) (routine) without abnormal findings (principal); Z11.51 Encounter for screening for human papillomavirus (HPV)
CPT/HCPCS: 87624; 87625; 88142

== ENCOUNTER 2022-09-11 13:07 | Outpatient (AMB) | payer OTHER, SELFPAY ==
--- NOTE | 2022-09-11 13:42 | A.OFFVIS_ITS ---
Intake Vital Signs 09/11/22 13:43 Height 5 ft 2 in Weight 252 lb BMI 46.1 BP 154/92 H Intake Visit Reasons: [facility] annual exam/do not gurpreet Building Pressure Washer Required: No Information Interpreted: non-clinical & clinical Instructional Technology Coach: Instructional Technology Coach Present (Catherine) Allergies hydromorphone Allergy (Intermediate, Verified 09/11/22 13:46) Rash acyclovir Allergy (Unknown, Verified 09/11/22 13:46) Unknown insect venom [INSECT BITES] Allergy (Unknown, Verified 09/11/22 13:46) UNKNOWN sulfamethoxazole [From BACTRIM] Allergy (Unknown, Verified 09/11/22 13:46) Anaphylaxis trimethoprim [From BACTRIM] Allergy (Unknown, Verified 09/11/22 13:46) Anaphylaxis Is last menstrual period known: No HPI HPI Comments History of Present Illness Details Presenting for annual exam. No complaints. Last Pap/HPV was LGSIL in 02/08, followed by colpo/biopsy which came back negative Last Mammogram was BI-RADS 1 in 04/13 [facility] Medical History (Updated 09/11/22 @ 13:54 by John Schmidt MD) Alcohol abuse Baclofen overdose Bipolar 1 disorder, manic, moderate Cocaine abuse Hypertension LGSIL on Pap smear of cervix Psychiatric diagnosis PTSD (post-traumatic stress disorder) Substance abuse Surgical History History of ankle surgery History of cholecystectomy History of knee replacement procedure of right knee History of stress incontinence procedure using tension free vaginal tape Hx of tubal ligation Family History Family/Other Breast cancer Maternal Aunt Cervical cancer Social History Household Members: Children Household Members Other:: lives by self Housing: Apartment Do you presently have visiting nurse or other home services: No Unable to assess alcohol history related to: Unknown Alcohol intake: unknown Patient Tobacco Use Status: Current everyday Tobacco user Tobacco use type: Cigarette Cigarette Packs Per Day: 1 Cigarettes Per Day: 20.0 e-Cigarette/Vaping Use: Currently Using Second Hand Smoke Exposure: No Substance Use Type: Marijuana Advance Directives Date on File: 03/18/21 service: No 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al status: unemployed 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 handed/ [employer] Sexual orientation: Bisexual Female Reproductive History Menstrual Age of Menarche: 16 Duration of menses: 6-7 days control method: permanent sterilization Total pregnancies: 1 Full term: 1 Number of Living Children: 1 Date of last pap smear: 07/17/07 History of abnormal pap smear: Yes Date of Mammogram: 04/12/22 Review of Systems Const All systems reviewed & are unremarkable except as noted in HPI and below Card Reports as per HPI Resp Reports as per HPI GI Reports as per HPI and Reports no additional complaints Reports as per HPI Physical Exam Vital Signs: Last Vital Signs BP 154/92 H 09/11/22 13:43 BMI result Body Mass Index 46.1 Const General: cooperative, healthy appearing and comfortable Chest Chest palpation & inspection: normal inspection of the chest and normal palpation of entire chest wall Breast/axilla inspection: normal inspection of the breasts and normal inspection of the axillae Breast/axilla palpation: normal palpation of the breasts, normal palpation of the axillae and no axillary lymphadenopathy Resp Effort & Inspection: normal respiratory effort Auscultation: clear to auscultation bilaterally Percussion: percussion normal Cardio Palpation: normal PMI Rate: regular rate Rhythm: regular rhythm Heart sounds: no murmurs and no rubs Peripheral pulses: Peripheral pulses 2+ throughout GI Inspection: Yes normal to inspection Palpation (GI): Soft to palpation, nontender, no guarding, not rigid and No hepatosplenomegaly present Percussion: Yes normal to percussion Auscultation: normal bowel sounds Rectal Exam - Female: deferred General: Yes bladder normal to palpation External Female Exam: No lesion Speculum Exam - Vagina: normal appearance of the vagina, normal palpation, normal vaginal discharge and not erythematous Speculum Exam - Cervix: normal appearance of the cervix and normal palpation Bimanual exam- vagina & uterus: normal bimanual exam, normal palpation, uterine size normal, bladder normal to palpation, consistency normal and normal palpation Bimanual Exam- Adnexa, other: normal adnexae, no masses and no tenderness Assessment & Plan Assessment & Plan (1) Well woman exam: Code(s): Z01.419 - Encounter for gynecological examination (general) (routine) without abnormal findings Plan: Cotesting done. Mammogram up-to-date. Counseled the patient about the recommended dietary allowance of 1000 mg of Calcium & 600 IU of vitamin D. The patient was instructed to perform monthly self-breast exams and to schedule an annual exam in a year; All questions answered and the patient verbalized understanding. Instructed the patient to schedule annual exam in a year Coding Level of Care Code Est Pt Prev Care 40-64y(29029) Diagnoses Well woman exam Z01.419
[2022-09-11 13:43] VITALS: BP 154/92; BMI 46.1
== END 2022-09-11 14:02 | disposition home or self-care (01) ==
LOC: HO.HWS 13:08
PROVIDERS: PCP General Practice; Visit Provider Obstetrics & Gynecology
DX: Z01.419 Encounter for gynecological examination (general) (routine) without abnormal findings (principal)
CPT/HCPCS: 99396

== ENCOUNTER 2022-09-26 12:42 | Outpatient (AMB) | payer OTHER, SELFPAY ==
[2022-09-26 12:47] VITALS: BP 120/70; BMI 45.4
--- NOTE | 2022-09-26 12:47 | MHC.OFFVIS ---
Intake Vital Signs 09/26/22 12:47 Height 5 ft 2 in Weight 248 lb BMI 45.4 BP 120/70 Intake Visit Reasons: Colposcopy Human Resources Administrator Required: No Player Development Executive: Player Development Executive Present (Catherine) Allergies hydromorphone Allergy (Intermediate, Verified 09/26/22 12:51) Rash acyclovir Allergy (Unknown, Verified 09/26/22 12:51) Unknown insect venom [INSECT BITES] Allergy (Unknown, Verified 09/26/22 12:51) UNKNOWN sulfamethoxazole [From BACTRIM] Allergy (Unknown, Verified 09/26/22 12:51) Anaphylaxis trimethoprim [From BACTRIM] Allergy (Unknown, Verified 09/26/22 12:51) Anaphylaxis Is last menstrual period known: No Post menopausal: No Patient : No ( ) PFSH Medical History (Updated 09/26/22 @ 13:04 by John Schmidt MD) Alcohol abuse Baclofen overdose Bipolar 1 disorder, manic, moderate Cocaine abuse Hypertension LGSIL on Pap smear of cervix Psychiatric diagnosis PTSD (post-traumatic stress disorder) Substance abuse Surgical History History of ankle surgery History of cholecystectomy History of knee replacement procedure of right knee History of stress incontinence procedure using tension free vaginal tape Hx of tubal ligation Family History Family/Other Breast cancer Maternal Aunt Cervical cancer Social History Household Members: Children Household Members Other:: lives by self Housing: Apartment Do you presently have visiting nurse or other home services: No Unable to assess alcohol history related to: Unknown Alcohol intake: unknown Patient Tobacco Use Status: Current everyday Tobacco user Tobacco use type: Cigarette Cigarette Packs Per Day: 1 Cigarettes Per Day: 20.0 e-Cigarette/Vaping Use: Currently Using Second Hand Smoke Exposure: No Substance Use Type: Marijuana Advance Directives Date on File: 03/18/21 service: No 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al status: unemployed 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 handed/ [employer] Sexual orientation: Bisexual Female Reproductive History Menstrual Age of Menarche: 16 Physical Exam Vital Signs: Last Vital Signs BP 120/70 09/26/22 12:47 BMI result Body Mass Index 45.4 Office Procedures Colposcopy Before the procedure was started discussed with the patient the procedure, alternatives & all the risks associated with the procedure (bleeding, infection, injury to vagina, bladder, vessels, possible need for transfusion with all its risks) then patient signed the consent Pap smear = LSIL Urine test done in the office was negative Speculum inserted, acetic acid used Colposcopy done Transformation zone seen, acetowhite lesions identified at 12+1 o?clock, cervical biopsies taken from 12+1 o?clock, ECC done afterwards. Vaginoscopy of the upper vagina showed no evidence of any aceto-white lesions Monsel solution used for hemostasis. The patient tolerated well . At the end the patient was instructed to call if temp>100.4, abdominal pain, n/v, bleeding; The patient was given the following instructions: nothing per vagina, no intercourse or bath tub use. All questions answered the patient verbalized understanding. Instructed the patient to make an appointment in 2 weeks for follow-up This note was generated with a voice recognition program. Some errors may have been overlooked during the review of this note. Sometimes these errors may affect the content or meaning of a given sentence. 06128-Zdizcraam of cervix including upper vagina with biopsy and ECC Procedure code (CPT) selection complete Results AMB Test Urine AMB Test Urine Negative Last Edit by TEODORO Jordan on 09/26/22 12:58 Assessment & Plan Assessment & Plan Orders: Orders AMB HCG Urine Test Today Z32.02 - Encounter for test, result negative AMB Colposcopy Today B97.7 - Papillomavirus as the cause of diseases classified elsewhere Coding Level of Care Code Procedure Only Diagnoses CPT Codes Colposcopy - CPT: 18301-Mrsuocepa of cervix including upper vagina with biopsy and ECC ([id number])
== END 2022-09-26 13:09 | disposition home or self-care (01) ==
LOC: HO.HWS 12:42
PROVIDERS: PCP General Practice; Visit Provider Obstetrics & Gynecology
DX: R87.610 Atypical squamous cells of undetermined significance on cytologic smear of cervix (ASC-US) (principal); R87.810 Cervical high risk human papillomavirus (HPV) DNA test positive
CPT/HCPCS: 57454

== ENCOUNTER 2022-09-26 12:42 | Outpatient (REF) | payer OTHER, SELFPAY | END 2022-09-26 12:43 | disposition home or self-care (01) | LOC: HO.LNP 12:42 | PROVIDERS: PCP General Practice; Visit Provider Obstetrics & Gynecology | DX: Z32.02 Encounter for pregnancy test, result negative (principal); A63.0 Anogenital (venereal) warts; B97.7 Papillomavirus as the cause of diseases classified elsewhere | CPT/HCPCS: 57454; 81025; 88305 ==

== ENCOUNTER 2022-10-26 12:45 | Outpatient (AMB) | payer OTHER, SELFPAY ==
[2022-10-26 13:20] VITALS: BP 122/74; BMI 45.4
--- NOTE | 2022-10-26 13:20 | A.OFFVIS_ITS ---
Intake Vital Signs 10/26/22 13:20 Height 5 ft 2 in Weight 248 lb BMI 45.4 BP 122/74 Intake Visit Reasons: Colpo results Nursing Officer Required: No Allergies hydromorphone Allergy (Intermediate, Verified 10/26/22 13:21) Rash acyclovir Allergy (Unknown, Verified 10/26/22 13:21) Unknown insect venom [INSECT BITES] Allergy (Unknown, Verified 10/26/22 13:21) UNKNOWN sulfamethoxazole [From BACTRIM] Allergy (Unknown, Verified 10/26/22 13:21) Anaphylaxis trimethoprim [From BACTRIM] Allergy (Unknown, Verified 10/26/22 13:21) Anaphylaxis Is last menstrual period known: No HPI HPI Comments History of Present Illness Details Presenting post colpo for follow-up. The patient is doing well with no complaints. The pathology showed the following: A. Endocervix, curettage: Squamous and scant endocervical glandular epithelium; negative for dysplasia. B. Cervix, 100, biopsy: Squamous mucosa; negative for dysplasia; no endocervical glandular component present. C. Cervix, 12:00, biopsy: Squamous mucosa; negative for dysplasia; no endocervical glandular component present. Comment: The atypical cells present in the patient's previous Pap ([id number]) are not seen in the current biopsies. [facility] Medical History LGSIL on Pap smear of cervix PTSD (post-traumatic stress disorder) Cocaine abuse Baclofen overdose Bipolar 1 disorder, manic, moderate Alcohol abuse Substance abuse Psychiatric diagnosis Hypertension Surgical History Hx of tubal ligation History of stress incontinence procedure using tension free vaginal tape History of knee replacement procedure of right knee History of cholecystectomy History of ankle surgery Family History Family/Other Breast cancer Maternal Aunt Cervical cancer Social History Household Members: Children Household Members Other:: lives by self Housing: Apartment Do you presently have visiting nurse or other home services: No Unable to assess alcohol history related to: Unknown Alcohol intake: unknown Patient Tobacco Use Status: Current everyday Tobacco user Tobacco use type: Cigarette Cigarette Packs Per Day: 1 Cigarettes Per Day: 20.0 e-Cigarette/Vaping Use: Currently Using Second Hand Smoke Exposure: No Substance Use Type: Marijuana Advance Directives Date on File: 03/18/21 service: No 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al status: unemployed 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 handed/ [employer] Sexual orientation: Bisexual Female Reproductive History Menstrual Age of Menarche: 16 Date of last pap smear: 09/12/22 (ASCUS +HPV) Review of Systems Const All systems reviewed & are unremarkable except as noted in HPI and below Reports as per HPI and Reports no additional complaints GI Reports no additional complaints Reports no additional complaints Physical Exam Vital Signs: Last Vital Signs BP 122/74 10/26/22 13:20 BMI result Body Mass Index 45.4 Assessment & Plan Assessment & Plan (1) ASCUS with positive high risk HPV cervical: Code(s): R87.610 - Atypical squamous cells of undetermined significance on cytologic smear of cervix (ASC-US); R87.810 - Cervical high risk human papillomavirus (HPV) DNA test positive Plan: Discussed with the patient the pathology results of the colposcopy biopsies & endocervical curettage ( negative). Discussed with the patient the sensitivity specificity, positive and negative predictive value in detecting cervical cancer in addition discussed the regression, persistence and progression rates. Recommended co-testing in 12 months, if cytology and or HPV are abnormal will proceed was colposcopy biopsy and endocervical curettage. Instructions given to the patient to schedule a co test appointment in 1 year. All questions answered the patient verbalized understanding. Coding Level of Care Code Est Pt Level 3 (14680) Diagnoses ASCUS with positive high risk HPV cervical R87.610; R87.810
== END 2022-10-26 13:27 | disposition home or self-care (01) ==
PROVIDERS: PCP General Practice; Visit Provider Obstetrics & Gynecology
DX: R87.610 Atypical squamous cells of undetermined significance on cytologic smear of cervix (ASC-US) (principal); R87.810 Cervical high risk human papillomavirus (HPV) DNA test positive
CPT/HCPCS: 99213

== ENCOUNTER → 2022-10-26 12:45 | Outpatient (BNVA) | payer OTHER, SELFPAY | PROVIDERS: PCP General Practice; Visit Provider Obstetrics & Gynecology | DX: R87.610 Atypical squamous cells of undetermined significance on cytologic smear of cervix (ASC-US) (principal); R87.810 Cervical high risk human papillomavirus (HPV) DNA test positive | CPT/HCPCS: 99212 ==

== ENCOUNTER 2022-11-21 20:09 | Outpatient (REF) | payer OTHER, SELFPAY ==
[2022-11-21 21:06] LABS: Influenza A PCR NEGATIVE (Negative); Influenza B PCR NEGATIVE (Negative); Resp Syncy Virus RNA Qual PCR NEGATIVE (Negative); SARS COV2 PCR INHOUSE NEGATIVE (Negative)
== END 2022-11-21 20:10 | disposition home or self-care (01) ==
LOC: HO.HHCLNP 20:09
PROVIDERS: Visit Provider Internal Medicine Geriatric Medicine
DX: J06.9 Acute upper respiratory infection, unspecified (principal)
CPT/HCPCS: 0241U; 87070

== ENCOUNTER 2023-02-21 16:28 | Outpatient (REF) | payer OTHER, SELFPAY | END 2023-02-21 16:29 | disposition home or self-care (01) | LOC: HO.HHCL 16:28 | PROVIDERS: Visit Provider General Practice | DX: E03.9 Hypothyroidism, unspecified (principal) | CPT/HCPCS: 36415; 84443 ==

== ENCOUNTER 2023-05-04 15:48 | Outpatient (REF) | payer OTHER, SELFPAY ==
--- NOTE | ~2023-05-04 | MM_ITS ---
EXAMINATION: MM SCREENING DIGITAL BREAST TOMOSYNTHESIS, BILATERAL CLINICAL INFORMATION: Screening. At the time of the screening examination, the patient reported intermittent pain in the superior half of the left breast over the last 2-3 weeks. COMPARISON: Mammography: This study is compared with prior exams dating back to 2022. TECHNIQUE: Digital breast tomosynthesis is performed in both the craniocaudal and mediolateral oblique views along with computer-aided detection (CAD). Synthesized 2D images are generated from the tomosynthesis. FINDINGS: There are scattered areas of fibroglandular density (ACR BI-RADS breast composition Category b). There are no significant masses, abnormal calcifications, or other abnormalities. MM/MM tomosynthesis screening BI IMPRESSION: No mammographic evidence of malignancy. ASSESSMENT: BI-RADS BI-RADS 1 - Negative RECOMMENDATION: Routine annual mammography screening. Clinical follow-up of left breast pain advised. 1 year F/U This examination should not preclude the clinical evaluation of a suspicious palpable abnormality. This patient's information was entered into a reminder system with a target due date for their next mammogram.
== END 2023-05-04 15:49 | disposition home or self-care (01) ==
LOC: HO.MAMMO 15:48
PROVIDERS: PCP General Practice; Visit Provider General Practice
DX: Z12.31 Encounter for screening mammogram for malignant neoplasm of breast (principal)
CPT/HCPCS: 77063; 77067

== ENCOUNTER → 2023-05-04 16:00 | Outpatient (BNV) | payer OTHER, SELFPAY | PROVIDERS: PCP General Practice; Visit Provider Radiology Diagnostic Radiology | DX: Z12.31 Encounter for screening mammogram for malignant neoplasm of breast (principal) | CPT/HCPCS: 77063; 77067 ==

== ENCOUNTER 2023-05-24 14:36 | Outpatient (REF) | payer OTHER, SELFPAY ==
--- NOTE | ~2023-05-24 | XR_ITS ---
EXAMINATION: XR ANKLE, LEFT CLINICAL INFORMATION: Open reduction internal fixation of 4-5 years ago. Worsening pain. COMPARISON: None available. TECHNIQUE: AP, lateral, and mortise views of the left ankle. FINDINGS: Bones have normal alignment at the ankle. The talar dome is well-positioned within the intact mortise. Ankle joint space and syndesmotic space are maintained. The minimal osseous prominence at the tip of the fibula likely represents an old healed small avulsion fracture. There appears to be an old healed medial malleolar fracture and likely old healed nondisplaced posterior malleolar fracture. The medial tibial fixation plate and fixation screws are intact. No osteolysis around the hardware. No new fractures. No evidence of ankle joint effusion. There is a multipartite appearance of the os peroneum. The visualized bones of the foot are intact. XR/XR ankle LT min 3V IMPRESSION: * No acute osseous abnormality left ankle. * No evidence of loosening of the tibial fixation hardware. * No evidence of arthritic disease at the ankle or subtalar joint.
== END 2023-05-24 14:37 | disposition home or self-care (01) ==
LOC: HO.HHCX 14:36
PROVIDERS: Visit Provider Emergency Medicine
DX: M25.572 Pain in left ankle and joints of left foot (principal); G89.29 Other chronic pain
CPT/HCPCS: 73610

== ENCOUNTER 2023-05-30 15:35 | Outpatient (REF) | payer OTHER, SELFPAY ==
[2023-05-30 17:47] LABS: Alanine Aminotransferase 9 U/L (0-31); Alkaline Phosphatase 69 U/L (39-117); Anion Gap 11 (12-20); Aspartate Amino Transferase 14 U/L (5-31); Bilirubin Total 0.4 mg/dL (0.0-1.0); Blood Urea Nitrogen 8 mg/dL (9-16); Calcium 9.2 mg/dL (8.4-10.2); Carbon Dioxide 29 mmol/L (22-29); Chloride 100 mmol/L (96-108); Estimated Glomerular Filt Rate > 60; Glucose Random 77 mg/dL (60-115); Potassium 4.4 mmol/L (3.3-5.1); Sodium 136 mmol/L (135-145); Total Protein 7.2 g/dL (6.5-8.0)
== END 2023-05-30 15:36 | disposition home or self-care (01) ==
LOC: HO.HHCL 15:35
PROVIDERS: Visit Provider General Practice
DX: K21.9 Gastro-esophageal reflux disease without esophagitis (principal)
CPT/HCPCS: 36415; 80053

== ENCOUNTER 2023-07-30 08:15 | Outpatient (RCR) | payer OTHER, SELFPAY ==
[2023-07-30 13:00] VITALS: BP 128/80; PULSE 68; TEMP 36.7
[2023-07-30 13:03] VITALS: BMI 43.2
--- NOTE | 2023-07-30 14:34 | PC.ADMIT ---
Patient is a 47 year old female who self referred to [facility] as she attended [facility] years ago. Patient has a dx of Bipolar disorder most recently depressed. She also has a history of substance use reporting she relapsed on Tylenol # 3 when she was prescribed this in February 2023 and stated she overused them until April 2023. She also has a history of misusing percocet prescription. Patient is in recovery for ETOH use and currently has a sponsor and attends AA meetings. Reports history of drinking a 1/2 pint to a pint daily for 4 years. Currently she will drink 1-2 drinks every three months. History of using cocaine daily, last use 2017. Patient is employed by [employer]. She is currently taking a leave of absence since April 2023. She stated, I work for [employer] since December 2022. After my ankle heals I plan on going back to work. I have ankle surgery it's on the 12 of August . Patient reports financial stresses from being out of work. Patient has history of many inpatient level of care admissions. See Integrative Assessment for more information. Patient currently is alert and oriented x4. Calm and cooperative. She presents with depressed mood and anxious affect. She denied SI, no HI. She was given a copy of her safety plan if needed. Her thoughts are clear and logical. She reports her daughter, brother, therapist are supportive. She is planning on going back to work after her ankle surgery on August 13, 2023. Medications reconciled with patient and patient's pharmacy. Patient reports she has a VNA for medication management through [facility]. Reports she is taking medications as prescribed.
--- NOTE | 2023-07-31 08:20 | HO.PHP ---
Atiya was not scheduled for today due to having to clam picker a sleep machine to help monitor her sleep apnea.
--- NOTE | 2023-08-01 08:22 | HO.PHP ---
PHP nurse, Darlene, informed the PHP team that Atiya will not be in attendance to program today due to having three appointments to attend today.
--- NOTE | 2023-08-02 08:20 | HO.PHP ---
[facility] admin, Fartun, informed the team that Atiya called out leaving a message stating that she will not be in today but will be in attendance tomorrow. [facility] staff is going to review since Atiya has missed three days in a row at this point in time and only attended one day of program.
== END 2023-08-02 23:59 | disposition home or self-care (01) ==
LOC: HO.PHPA 08:15
PROVIDERS: Visit Provider Psychiatry & Neurology Psychiatry
DX: F31.32 Bipolar disorder, current episode depressed, moderate (principal); F43.10 Post-traumatic stress disorder, unspecified; F11.10 Opioid abuse, uncomplicated; F12.90 Cannabis use, unspecified, uncomplicated; F10.21 Alcohol dependence, in remission; F14.11 Cocaine abuse, in remission
CPT/HCPCS: 90791; 90853

== ENCOUNTER 2023-07-30 10:12 | Outpatient (REF) | payer OTHER, SELFPAY ==
[2023-07-31 10:50] LABS: Amphetamine Screen Urine Not Detected (Not Detect); Barbiturates, Urine Not Detected (Not Detect); Benzodiazepines Screen Urine Not Detected (Not Detect); Buprenorphine Scr Not Detected (Not Detect); Cannabinoid Screen Urine POSITIVE (Not Detect); Cocaine Screen Urine Not Detected (Not Detect); Fentanyl, urine Not Detected (Not Detect); Methadone Screen, Urine Not Detected (Not Detect); Opiate Screen Urine Not Detected (Not Detect); Oxycodone Screen Urine Not Detected (Not Detect); Phencyclidine Screen Urine Not Detected (Not Detect)
== END 2023-07-30 10:13 | disposition home or self-care (01) ==
LOC: HO.LNP 10:12
PROVIDERS: Visit Provider Psychiatry & Neurology Psychiatry
DX: F11.10 Opioid abuse, uncomplicated (principal); F12.90 Cannabis use, unspecified, uncomplicated; F14.11 Cocaine abuse, in remission
CPT/HCPCS: 80307

== ENCOUNTER → 2023-07-31 09:52 | Outpatient (REF) | payer OTHER, SELFPAY | LOC: HO.SL 09:52 | PROVIDERS: PCP General Practice; Visit Provider General Practice | DX: R40.0 Somnolence (principal); G47.30 Sleep apnea, unspecified | CPT/HCPCS: 95806 ==

== ENCOUNTER → 2023-07-31 19:00 | Outpatient (BNV) | payer OTHER, SELFPAY | PROVIDERS: PCP General Practice; Visit Provider Psychiatry & Neurology Neurology | DX: G47.33 Obstructive sleep apnea (adult) (pediatric) (principal) | CPT/HCPCS: 95806 ==

== ENCOUNTER 2023-08-02 12:03 | Outpatient (REF) | payer OTHER, SELFPAY ==
[2023-08-02 12:30] LABS: MANUAL DIFF FLAG NO
[2023-08-02 12:45] LABS: Basophils Percent Auto 0.4 % (0-2); Eosinophils Absolute Auto 0.1 X10*3/uL (0.0-0.4); Hematocrit 36.5 % (37.0-47.0); Hemoglobin 11.9 g/dl (12.0-16.0); Imm Gran Abs Auto 0.03 X10*3/uL (0.00-0.03); Imm Gran Pct Auto 0.4 % (0.0-0.4); Lymphocytes Absolute Auto 2.6 X10*3/uL (1.2-4.9); Lymphocytes Percent Auto 36.9 % (20-40); Mean Corpuscular HGB Conc 32.6 g/dl (31.0-35.0); Mean Corpuscular Hemoglobin 24.8 pg (27.0-33.0); Mean Platelet Volume 10.2 fL (9.4-12.3); Monocytes Absolute Auto 0.5 X10*3/uL (0.1-1.2); Monocytes Percent Auto 6.3 % (2-11); Neutrophils Absolute Auto 3.9 x10*3/uL (2.0-8.3); Platelet Count 247 X10*3/uL (160-400); White Blood Count 7.2 X10*3/uL (4.8-10.8)
[2023-08-02 13:18] LABS: Iron 72 mcg/dL (30-160); Percent Iron Saturation 19 % (15-50); Total Iron Binding Capacity 372 mcg/dL (228-428); Unsaturated Iron Binding 300 ug/dL
[2023-08-02 13:38] LABS: Ferritin 12 ng/mL (10-250); Free T4 (Free Thyroxine) 0.81 ng/dL (0.71-1.85); Thyroid Stimulating Hormone 1.17 uIU/mL (0.32-4.0); Vitamin D 25-OH Total 17.3 ng/mL (>30)
[2023-08-02 13:42] LABS: Folate 12.6 ng/mL (> or = 4.0); Vitamin B12 1517 pg/mL (200-900)
[2023-08-03 09:08] LABS: DHEA Sulfate 116 mcg/dL (15-205)
[2023-08-06 14:44] LABS: Anti Nuclear Antibody Screen NEGATIVE (NEGATIVE)
[2023-08-06 16:47] LABS: Vitamin D 25-OH, D2 <4 ng/mL; Vitamin D 25-OH, D3 17 ng/mL; Vitamin D 25-OH, Total 17 ng/mL (30-100)
[2023-08-07 18:44] LABS: VITAMIN D (1,25 OH) D3 32 pg/mL; Vit D (1,25-Dihydroxy) Total 32 pg/mL (18-72); Vitamin D (1,25 OH) D2 <8 pg/mL
== END 2023-08-02 12:04 | disposition home or self-care (01) ==
LOC: HO.LAB 12:03
PROVIDERS: Visit Provider Nurse Practitioner Family
DX: L65.8 Other specified nonscarring hair loss (principal)
CPT/HCPCS: 36415; 82306; 82607; 82627; 82652; 82728; 82746; 83540; 84402; 84403; 84439; 84443; 85025; 86038

== ENCOUNTER 2023-09-08 08:33 | Outpatient (REF) | payer OTHER, SELFPAY ==
[2023-09-08 11:49] LABS: Cholesterol 158 mg/dL (<200); HDL Cholesterol 60 mg/dL (>40); LDL Cholesterol Calculated 87 mg/dL (<100); Triglycerides 57 mg/dL (<150)
[2023-09-08 11:52] LABS: Estimated Average Glucose 82 mg/dL; Hemoglobin A1c % 4.5 % (<6.0)
== END 2023-09-08 08:34 | disposition home or self-care (01) ==
LOC: HO.HMGCLDS 08:33
PROVIDERS: PCP General Practice; Visit Provider General Practice
DX: E66.01 Morbid (severe) obesity due to excess calories (principal); Z68.41 Body mass index [BMI] 40.0-44.9, adult
CPT/HCPCS: 36415; 80061; 83036

== ENCOUNTER 2024-01-22 07:49 | Outpatient (REF) | payer OTHER, SELFPAY ==
[2024-01-24 13:40] LABS: HPV 16,18/45 See PAP report
== END 2024-01-22 07:50 | disposition home or self-care (01) ==
LOC: HO.LNP 07:49
PROVIDERS: PCP General Practice; Visit Provider Obstetrics & Gynecology
DX: Z01.419 Encounter for gynecological examination (general) (routine) without abnormal findings (principal); R87.810 Cervical high risk human papillomavirus (HPV) DNA test positive; R87.610 Atypical squamous cells of undetermined significance on cytologic smear of cervix (ASC-US)
CPT/HCPCS: 87624; 88175; 99396

== ENCOUNTER 2024-01-22 07:49 | Outpatient (AMB) | payer OTHER, SELFPAY ==
--- OUTSIDE RECORDS SUMMARY | 2024-01-22 07:50 | XMS_ITS | Continuity of Care Document ---
Author Organization [facility] Address [address] [place] [address]- Care Team Providers Care Judicial Assistant Name Role Phone Julio AHUMADA, Maddie Hi Primary Care Physician [place] [facility] [place](s[place] 02/01/22 - 03/03/22 [facility] [address], [place] [address] [place] Attending Physician: Marvin Chaudhari Admitting Physician: Marvin Chaudhari Referring Physician: AdmtrMarvin Allergies, Adverse Reactions, Alerts Substance Reaction Severity Status penicillin RASH Active Dilaudid red face, itchy over wholw body Active Bactrim DS Throat swelling Active Immunizations Given and Recorded Vaccine Date Status Refusal Reason influenza virus vaccine, inactivated 01/18/16 Give n pneumococcal 23-valent vaccine 05/26/15 Given tetanus/diphtheria/pertussis, acel(Tdap) 1 09/19/10 Recorded Not Given Vaccine Date Status Refusal Reason influenza virus vaccine, inactivated 12/27/18 Not Given Patient Refuses influenza virus vaccine, inactivated 05/27/15 Not Given Parent Or Guardian Refuses 1Result Comment: [01/18/2016] school Medications celecoxib 200 mg oral capsule TAKE 1 CAPSULE BY MOUTH TWICE A DAY Start Date: 02/01/22 Status: Ordered Divalproex Sodium = 1,000 mg, By Mouth, take BID, 0 Refills, Maintenance, 11/15/21 8:03:00 EDT, Partial fill upon patient request if the prescription is for a schedule II opioid drug. Start Date: 11/15/21 Status: Ordered Invega Sustenna 234 mg/1.5 mL intramuscular suspension, extended release = 234 mg, Intramuscular, Every 28 days, 0 Refills, Maintenance, 11/15/21 8:06:00 EDT, Partial fill upon patient request if the prescription is for a schedule II opioid drug. Start Date: 11/15/21 Status: Ordered levothyroxine 0.025 mg oral tablet 1 tablet = 25 mcg, By Mouth, Daily, for hypothyroidism, # 7 tablet, 3 Refills, Maintenance, 01/09/19 9:43:15 EST, Tablet Start Date: 01/09/19 Status: Ordered Lisinopril By Mouth, Daily, 0 Refills, Maintenance, 11/11/21 12:55:00 EDT, Partial fill upon patient request if the prescription is for a schedule II opioid drug. Start Date: 11/11/21 Status: Ordered Minerin topical cream Topically, 4 times a day, 0 Refills, Maintenance, 09/09/21 22:21:00 EDT, Partial fill upon patient request if the prescription is for a schedule II opioid drug. Start Date: 09/09/21 Status: Ordered nicotine 14 mg/24 hr transdermal film, extended release 1 patch, Topically, Daily, # 30 patch, 0 Refills, Acute 03/09/22 12:58:00 EST, 02/01/22 12:57:00 EST, Patch, [facility]/pharmacy #[id number], Partial fill upon patient request if the prescription is for a schedule II opioid drug., 1 patch Topically Daily, 160, cm,... Start Date: 02/01/22 Stop Date: 03/09/22 Status: Ordered omeprazole 20 mg oral delayed release tablet 1 tablet = 20 mg, By Mouth, Daily, 0 Refills, Maintenance, 11/15/21 8:04:00 EDT, Partial fill upon patient request if the prescription is for a schedule II opioid drug. Start Date: 11/15/21 Status: Ordered Problem List Condition Confirmation Course Effective Dates Status H ealth Status Informant Alcohol abuse Confirmed Active Chronic bipolar disorder Confirmed Active H/O gastric bypass Confirmed Active Headache Confirmed Active History of tubal ligation Confirmed Active Hx of cholecystectomy Confirmed Active Bilateral low back pain Confirmed Active Low blood pressure Confirmed Active Nicotine dependence Confirmed Active Severe obesity Confirmed Active UI (urinary incontinence) Confirmed Active Social History Social History Type Response Smoking Status 10 or more cigarette s (1/2 pack or more)/day in last 30 days; Other: smoking for 32 yrs.; entered on: 02/01/22 Sex Patient Care team information Care Team Personnel Name: Sharmaine Hunt RN Position: [facility] RN Member Role: Primary Care Nurse Name: Cait Rodriguez RN Position: [facility] RN Member Role: Primary Care Nurse Name: Rosa Isela Willis RN Position: [facility] RN Member Role: Primary Care Nurse Name: Dinah Rosas RN Position: [facility] RN Member Role: Primary Care Nurse Name: Soha James RN Position: [facility] RN Member Role: Primary Care Nurse Name: Yvonne Armstrong RN Position: [facility] AMB Nurse Member Role: Primary Care Nurse Name: Maddie Kim MD Position: [facility] Physician (General Medicine) Member Role: PCP Address: Address: [address] [place] [address] Name: Dinah Cid RN Position: [facility] RN Member Role: Primary Care Nurse Name: Samreen Cole RN Position: [facility] RN Member Role: Primary Care Nurse Name: Cornelio Fofana RN Position: [facility] RN Supv Member Role: Primary Care Nurse Name: Lesly Lamb RN Position: [facility] RN Member Role: Primary Care Nurse Name: Stella Dent RN Position: [facility] RN Member Role: Primary Care Nurse Name: Marilynn Galvin RN Position: [facility] RN Member Role: Primary Care Nurse Name: Elva Ornelas RN Position: [facility] Weather Forecaster Member Role: Primary Care Nurse Name: Enriqueta Phan RN Position: [facility] Weather Forecaster Member Role: Primary Care Nurse Care Team Related Persons Name: RYANNE CLNACY Address: home [address] [place] [address] Name: FARIBA MARLOW Address: [address] [place] [address] Name: JONES MARLOW Address: [address] [place] [address] Name: JAMES OGDEN
--- OUTSIDE RECORDS SUMMARY | 2024-01-22 07:50 | XMS_ITS | Continuity of Care Document ---
Author Organization [facility] [employer] Address [address] [place] [address]- Care Team Providers Care Popped Corn Oven Attendant Name Role Phone Julio AHUMADA, Maddie Hi Primary Care Physician [phone] [id number] Date(s): 01/05/22 - 02/18/22 [facility] [address] [place] [address]- Attending Physician: Fadia Byrd MD Admitting Physician: Fadia Byrd MD Referring Physician: Fadia Byrd MD Allergies, Adverse Reactions, Alerts Substance Reaction Severity [...] 03/09/22 12:58:00 EST, 02/01/22 12:57:00 EST, Patch, [facility]/pharmacy #[id number], Partial fill upon patient request if [...] Team Personnel Name: Sharmaine Hunt RN Position: [facility] RN Member Role: Primary Care Nurse Name: Cait Rodriguez RN Position: [facility] RN Member Role: Primary Care Nurse Name: Rosa Isela Willis RN Position: [facility] SN RN Member Role: Primary Care Nurse Name: Dinah Rosas RN Position: [facility] RN Member Role: Primary Care Nurse Name: Soha James RN Position: [facility] RN Member Role: Primary Care Nurse Name: Yvonne Armstrong RN Position: [facility] AMB Nurse Member Role: Primary Care Nurse Name: Maddie Kim MD Position: [facility] Physician (General Medicine) Member Role: PCP Address: Address: [address] [place] [address] Name: Dinah Cid RN Position: [facility] RN Member Role: Primary Care Nurse Name: Samreen Cole RN Position: [facility] Amortization Schedule Clerk Member Role: Primary Care Nurse Name: Cornelio Fofana RN Position: [facility] RN Supv Member Role: Primary Care Nurse Name: Lesly Lamb RN Position: [facility] RN Member Role: Primary Care Nurse Name: Stella Dent RN Position: [facility] RN Member Role: Primary Care Nurse Name: Marilynn Galvin RN Position: [facility] RN Member Role: Primary Care Nurse Name: Elva Ornelas RN Position: [facility] Amortization Schedule Clerk Member Role: Primary Care Nurse Name: Enriqueta Phan RN Position: [facility] Amortization Schedule Clerk Member Role: Primary Care Nurse Care Team Related Persons Name: RYANNE CLANCY Address: home [address] [place] [address] Name: FARIBA MARLOW Address: [address] [place] [address] Name: JONES MARLOW Address: [address] [place] [address] Name: JAMES OGDEN
--- OUTSIDE RECORDS SUMMARY | 2024-01-22 07:50 | XMS_ITS | Continuity of Care Document ---
Author Organization [facility] [facility] Address [address] [place] [address], [address] [place] [address]- Care Team Providers Care Time Signal Wirer Name Role Phone Not on Staff, PCP Primary Care Physician Unavail able [place] [facility] [place] 04/13/21 [facility] Jerzymichael Felix[facility] [address] [facility], [address] [place], [place] [address] Attending Physician: Marvin Chaudhari Admitting Physician: Marvin Chaudhari Referring Physician: AdmtrMarvin Allergies, Adverse Reactions, Alerts Substance Reaction Severity Status penicillin RASH Active Dilaudid red face, itchy over wholw body Active Bactrim DS Active Immunizations Given and Recorded Vaccine Date Status Refusal Reason influenza virus vaccine, inactivated 01/18/16 Give n pneumococcal 23-valent vaccine 05/26/15 Given tetanus/diphtheria/pertussis, acel(Tdap) 1 09/19/10 Recorded Not Given Vaccine Date Status Refusal Reason influenza virus vaccine, inactivated 12/27/18 Not Given Patient Refuses influenza virus vaccine, inactivated 05/27/15 Not Given Parent Or Guardian Refuses 1Result Comment: [01/18/2016] school Medications cloNIDine 0.1 mg oral tablet 0.1 mg, 1, tablet, By Mouth, 3 times a day, for anxiety, # 21 tablet, Refills 3, Tot. Refills 3, Maintenance, 01/09/19 9:44:56 EST, Route to Pharmacy Electronically, NCPDP_[id number], [facility] [address] Start Date: 01/09/19 Status: Ordered divalproex sodium 250 mg oral tablet, extended release See Instructions, 5 tablet ( = 1250 mg ) By Mouth Daily at bedtime - mood stabilizer, # 35 tablet, 3 Refills, Maintenance, 01/09/19 9:52:07 EST, ER Tablet Start Date: 01/09/19 Status: Ordered docusate sodium 100 mg oral capsule 100 mg, 1, capsule, By Mouth, 2 times a day, # 14 tablet, Refills 3, Tot. Refills 3, Maintenance, 01/09/19 9:55:33 EST, [id number] - [address] [place] [address] Start Date: 01/09/19 Status: Ordered hydrOXYzine pamoate 50 mg oral capsule See Instructions, PRN Anxiety, take 1 capsule u to three times daily as needed for anxiety, # 21 capsule, 3 Refills, Maintenance, 01/09/19 9:53:20 EST, Capsule Start Date: 01/09/19 Status: Ordered levothyroxine 0.025 mg oral tablet 1 tablet = 25 mcg, By Mouth, Daily, for hypothyroidism, # 7 tablet, 3 Refills, Maintenance, 01/09/19 9:43:15 EST, Tablet Start Date: 01/09/19 Status: Ordered lidocaine 5% topical film See Instructions, Topically Daily to affected area for pain, # 30 patch, 2 Refills, Maintenance, 01/09/19 9:47:21 EST, Patch, Topically Daily to affected area for pain Start Date: 01/09/19 Status: Ordered multivitamin with minerals Multiple Vitamins with Minerals oral capsule 1 capsule, Chew, Daily, # 30 capsule, 2 Refills, Maintenance, 01/09/19 9:56:17 EST, Capsule, 1 capsule Chew Daily Start Date: 01/09/19 Status: Ordered Nicoderm C-Q Clear 21 mg/24 hr transdermal film, extended release 1 patch, Topically, Daily, for nicotine cravings, # 30 patch, 3 Refills, Maintenance, 01/09/19 9:48:46 EST, Patch Start Date: 01/09/19 Status: Ordered Nicotine 2 mg gum 1 gum = 2 mg, Chew, Every 2 hours, PRN Other, cigarette craving, # 160 each, 0 Refills, Maintenance, 01/09/19 9:48:23 EST, Gum Start Date: 01/09/19 Status: Ordered pantoprazole 20 mg oral delayed release tablet = 20 mg, By Mouth, 2 times a day, for acid reflux, # 14 tablet, 3 Refills, Maintenance, 01/09/19 9:49:26 EST, EC Tablet Start Date: 01/09/19 Status: Ordered prazosin 1 mg oral capsule See Instructions, take 3 capsules ( = 3 mg ) daily at bedtime for nightmares, # 21 capsule, Refills3, Tot. Refills 3, Maintenance, 01/09/19 9:44:09 EST, Instructions Replace Required Details, Route to Pharmacy Electronically, NCPDP_[id number], [facility] Start Date: 01/09/19 Status: Ordered Risperdal Consta 50 mg IM Risperdal Consta 50 mg IM, See Instructions, # 1 each, Refills 3, Tot. Refills 3, Maintenance, Nextdose due on 01/22/2019 - mood stabilizer, 01/09/19 9:53:59 EST, Compound Start Date: 01/09/19 Status: Ordered traZODone 50 mg oral tablet 50 mg, 1, tablet, By Mouth, Daily at bedtime, for sleep, # 7 tablet, Refills 3, Tot. Refills 3, Maintenance, 01/09/19 9:49:50 EST, Route to Pharmacy Electronically, NCPDP_ID-[id number], [facility] [address] [facility] Start Date: 01/09/19 Status: Ordered Problem List Condition Effective Dates Status Health Status Inform ant Alcohol abuse(Confirmed) Active Chronic bipolar disorder(Confirmed) Active Cocaine abuse(Confirmed) Active H/O gastric bypass(Confirmed) Active Headache(Confirmed) Active History of tubal ligation(Confirmed) Active Hx of cholecystectomy(Confirmed) Active Bilateral low back pain(Confirmed) Active Low blood pressure(Confirmed) Active Nicotine dependence(Confirmed) Active Severe obesity(Confirmed) Active UI (urinary incontinence)(Confirmed) Active Social History Social History Type Response Tobacco Use: 4 or less cigar ettes(less than 1/4 pack)/day in last 30 days. Sex
--- OUTSIDE RECORDS SUMMARY | 2024-01-22 07:50 | XMS_ITS | Continuity of Care Document ---
Author Organization [facility] Address [address] [place] [address]- Care Team Providers Care Case Checker Name Role Phone Not on Staff, PCP Primary Care Physician Unavail able Encounter [facility] [place] Date(s): 03/11/21 - 04/16/[address] [address] Attending Physician: Fadia Byrd MD Admitting Physician: Fadia Byrd MD Allergies, Adverse Reactions, Alerts Substance Reaction Severity Status penicillin RASH Active Bactrim DS Active Dilaudid red face, itchy over wholw body Active Immunizations Given and Recorded Vaccine Date [...] 01/09/19 9:44:56 EST, Route to Pharmacy Electronically, NCPDP_ID-[id number], [facility] - [address] Start Date: 01/09/19 Status: Ordered divalproex [...] 01/09/19 9:55:33 EST, Route to Pharmacy Electronically, NCPDP_ID-[id number], [facility] - [address] [place] [address] Start Date: 01/09/19 Status: Ordered hydrOXYzine pamoate [...] Replace Required Details, Route to Pharmacy Electronically, NCPDP_ID-[id number], [facility] Start Date: 01/09/19 Status: Ordered Risperdal Consta [...] 01/09/19 9:49:50 EST, Route to Pharmacy Electronically, NCPDP_ID-[id number], [facility] [address] Start Date: 01/09/19 Status: Ordered Problem List [...]
--- OUTSIDE RECORDS SUMMARY | 2024-01-22 07:50 | XMS_ITS | Continuity of Care Document ---
Author Organization [facility] Address [address] [place] [address], [address] [place] [address]- Care Team Providers Care Proof Clerk Name Role Phone Julio AHUMADA, Maddie Hi Primary Care Physician [place] [facility] [place](s): 06/12/22 - 07/12/22 [facility] [address] [facility], [address] [place], [place] [address] Attending Physician: Marvin Chaudhari Admitting Physician: Mavrin Chaudhari Referring Physician: Marvin Chaudhari Allergies, Adverse Reactions, Alerts Substance Reaction Severity Status penicillin RASH Active Bactrim DS Throat swelling Active Dilaudid red face, itchy over wholw [...] school Medications celecoxib 200 mg oral capsule 1 capsule = 200 mg, By Mouth, Daily, # 30 capsule, 0 Refills, Maintenance, 03/10/22 9:59:00 EST, Capsule, [facility], Partial fill upon patient request if the prescription is for a schedule II opioid drug., 160, cm, 03/10/22 6:50:00 EST,... Start Date: 03/10/22 Status: Ordered Divalproex Sodium = 1,000 mg, By Mouth, take BID, 0 Refills, Maintenance, 11/15/21 8:03:00 EDT, Partial fill upon patient request if the prescription is for a schedule II opioid drug. Start Date: 11/15/21 Status: Ordered gabapentin 300 mg oral capsule 300 mg, 1, capsule, By Mouth, 3 times a day, # 90 capsule, Refills 5, Maintenance, 03/10/22 5:20:00EST, Partial fill upon patient request if the prescription is for a schedule II opioid drug. Start Date: 03/10/22 Status: Ordered Invega Sustenna 234 mg/1.5 mL intramuscular suspension, extended release = 234 mg, Intramuscular, Every 28 days, 0 Refills, Maintenance, 11/15/21 8:06:00 EDT, Partial fill upon patient request if the prescription is for a schedule II opioid drug. Start Date: 11/15/21 Status: Ordered Lamisil = 250 mg, By Mouth, Daily, 0 Refills, Maintenance, 06/28/22 9:04:00 EDT, Partial fill upon patient request if the prescription is for a schedule II opioid drug. Start Date: 06/28/22 Status: Ordered levothyroxine 0.025 mg oral tablet 1 tablet = 25 mcg, By Mouth, Daily, for hypothyroidism, # 7 tablet, 3 Refills, Maintenance, 01/09/19 9:43:15 EST, Tablet Start Date: 01/09/19 Status: Ordered Lisinopril = 5 mg, By Mouth, Daily, 0 Refills, Maintenance, 11/11/21 12:55:00 EDT, Partial fill upon patient request if the prescription is for a schedule II opioid drug. Start Date: 11/11/21 Status: Ordered Minerin topical cream Topically, 4 times a day, 0 Refills, Maintenance, 09/09/21 22:21:00 EDT, Partial fill upon patient request if the prescription is for a schedule II opioid drug. Start Date: 09/09/21 Status: Ordered MiraLax oral powder for reconstitution = 17 Gm, By Mouth, Daily, dissolve in water before taking, # 255 Gm, 0 Refills, Maintenance, 06/30/22 14:02:00 EDT, REC Powder, [facility], Partial fill upon patient request if the prescription is for a schedule II opioid drug., 17 Gm By... Start Date: 06/30/22 Status: Ordered omeprazole 20 mg oral delayed release tablet 1 tablet = 20 mg, By Mouth, Daily, 0 Refills, Maintenance, 11/15/21 8:04:00 EDT, Partial fill upon patient request if the prescription is for a schedule II opioid drug. Start Date: 11/15/21 Status: Ordered oxyCODONE 5 mg oral tablet 5 mg, 1, tablet, By Mouth, Every 6 hours, PRN, # 5 tablet, Refills 0, Tot. Refills 0, Maintenance, for pain, 06/30/22 14:02:00 EDT, Route to Pharmacy Electronically, [facility], Partialfill upon patient request if the prescription is fo... Start Date: 06/30/22 Status: Ordered prazosin 5 mg oral capsule 5 mg, 1, capsule, By Mouth, 3 times a day, Refills 0, Maintenance, 06/12/22 11:39:00 EDT, Partial fill upon patient request if the prescription is for a schedule II opioid drug. Start Date: 06/12/22 Status: Ordered Tylenol 325 mg oral capsule 2 capsule = 650 mg, By Mouth, Every 4 hours, PRN as needed for pain, # 50 capsule, 0 Refills, Maintenance, 06/30/22 14:02:00 EDT, Capsule, [facility], Partial fill upon patient request if the prescription is for a schedule II opioid drug... Start Date: 06/30/22 Status: Ordered Problem List Condition Confirmation Course Effective Dates Status H ealth Status Informant Alcohol abuse Confirmed Active Alopecia Confirmed 07/29/12 Active Chronic bipolar disorder Confirmed Active Bipolar disorder Confirmed Active Carpal tunnel syndrome Confirmed 12/02/08 Active Chronic back pain Confirmed Active Family history of polyp of colon Confirmed 08/05/08 Active Gastric ulcer Confirmed 07/06/10 Active H/O gastric bypass Confirmed Active Headache Confirmed Active History of tubal ligation Confirmed Active Hx of cholecystectomy Confirmed Active Hypothyroidism Confirmed 11/06/18 Active Iron deficiency anemia Confirmed 08/23/09 Active Bilateral low back pain Confirmed Active Low blood pressure Confirmed Active 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 Moderate alcohol dependence Confirmed 09/06/20 Active Nicotine dependence Confirmed Active Obesity Confirmed 03/26/14 Active Opioid abuse Confirmed 03/26/14 Active Pain of knee region Confirmed 09/06/20 Active Prolapsed lumbar intervertebral disc Confirmed 10/06/10 Active Severe obesity Confirmed Active UI (urinary incontinence) Confirmed Active Vitamin D deficiency Confirmed 08/23/09 Active Social History Social History Type Response Smoking Status 10 or more cigarette s (1/2 pack or more)/day in last 30 days; Other: smoking for 32 yrs.; entered on: 02/01/22 Sex Implantable Device List Procedure Provider Procedure Date Device Type Site Transvaginal Tape Karolyno Fadia Byrd MD 06/30/22 Unk nown Urethra Device Identifier Serial Number Lot or Batch Number Manufacturing Date Expiration Date Distinct Identification Code MRI Safety Implantable Status Assigning Authority Unknown Unknown [id number] Unknown 06/04/25 Unknown Unknown Active Unknown Laboratory * Event Display: Non Lab Results Authored Date: Patient Care team information Care Team Personnel Name: Sharmaine Hunt RN Position: [facility] RN Member Role: Primary Care Nurse Name: Cait Rodriguez RN Position: [facility] RN Member Role: Primary Care Nurse Name: Rosa Isela Willis RN Position: [facility] RN Member Role: Primary Care Nurse Name: Dinah Rosas RN Position: [facility] RN Member Role: Primary Care Nurse Name: Sage Porter RN Position: [facility] RN Member Role: Primary Care Nurse Name: Soha aJmes RN Position: [facility] RN Member Role: Primary Care Nurse Name: Yvonne [place] RN Position: [facility] RN Member Role: Primary Care Nurse Name: Maddie Kim MD Position: [facility] Physician (General Medicine) Member Role: PCP Address: Address: [address] [place] [address], [address] [place] [address] Name: Dinah Cid RN Position: [facility] RN Member Role: Primary Care Nurse Name: Samreen Cole RN Position: [facility] Rope Coiling Machine Operator Member Role: Primary Care Nurse Name: Cornelio Fofana RN Position: [facility] RN Supv Member Role: Primary Care Nurse Name: Stella Dent RN Position: [facility] RN Member Role: Primary Care Nurse Name: Marliynn Galvin RN Position: [facility] RN Member Role: Primary Care Nurse Name: Elva Ornelas RN Position: [facility] Rope Coiling Machine Operator Member Role: Primary Care Nurse Name: Enriqueta Phan RN Position: [facility] Rope Coiling Machine Operator Member Role: Primary Care Nurse Care Team Related Persons Name: RYANNE CLANCY Address: home [address] [address] Name: FARIBA MARLOW Address: [address] [place] [address] Name: JONES MARLOW Address: home [address] [place] [address] Name: JAMES OGDEN
--- OUTSIDE RECORDS SUMMARY | 2024-01-22 07:50 | XMS_ITS | Continuity of Care Document ---
Author Organization [facility] [employer] Address [address], [address] [place] [address]- Care Team Providers Care Heddler Name Role Phone Julio AHUMADA, Maddie Hi Primary Care Physician [id number]30[facility] - 03/01/22 [facility]zym[facility] [address], [address] [place] [address]- Attending Physician: Fadia Byrd MD Admitting Physician: [...] 03/09/22 12:58:00 EST, 02/01/22 12:57:00 EST, Patch, [id number], Partial fill upon patient request if [...] Team Personnel Name: Sharmaine Hunt RN Position: [facility] RN Member Role: Primary Care Nurse Name: Cait Rodriguez RN Position: [facility] RN Member Role: Primary Care Nurse Name: Rosa Isela Willis RN Position: [facility] RN Member Role: Primary Care Nurse Name: Dinah Rosas RN Position: [facility] RN Member Role: Primary Care Nurse Name: Soha James RN Position: [facility] RN Member Role: Primary Care Nurse Name: Yvonne [place] RN Position: [facility] RN Member Role: Primary Care Nurse Name: Maddie Kim MD Position: [facility] Physician (General Medicine) Member Role: PCP Address: Address: [address] [place] [address] Name: Dinah Cid RN Position: [facility] RN Member Role: Primary Care Nurse Name: Samreen Cole RN Position: [facility] RN Member Role: Primary Care Nurse Name: Cornelio Fofana RN Position: [facility] RN Suprobina Member Role: Primary Care Nurse Name: Lesly Lamb RN Position: [facility] RN Member Role: Primary Care Nurse Name: Stella Dent RN Position: [facility] RN Member Role: Primary Care Nurse Name: Marilynn Galvin RN Position: [facility] RN Member Role: Primary Care Nurse Name: Elva Ornelas RN Position: [facility] Internet Technology Manager Member Role: Primary Care Nurse Name: Enriqueta Phan RN Position: [facility] Internet Technology Manager Member Role: Primary Care Nurse Care Team Related Persons Name: RYANNE CLANCY Address: home [address] [place] [address] Name: FARIBA MARLOW Address: [address] [place] [address] Name: JONES MARLOW Address: [address] [place] [address] Name: JAMES OGDEN
--- OUTSIDE RECORDS SUMMARY | 2024-01-22 07:50 | XMS_ITS | Continuity of Care Document ---
Author Organization [facility] Address [address] [place] [address] [address] [place] [address]- Care Team Providers Care Liquefaction And Regasification Helper Name Role Phone Maddie Kim MD Primary Care Physician Encounter [facility] [place] Date(s): 10/26/22 - 01/06/[address] [place] [address]- Attending Physician: Jacob Pickens MD Referring Physician: Maddie Kim MD Allergies, Adverse Reactions, Alerts Substance Reaction Severity Status penicillin RASH Active Bactrim DS Throat swelling Active Dilaudid red face, itchy over wholw body Active Immunizations Given and Recorded Vaccine Date Status Refusal Reason influenza virus vaccine, inactivated 01/18/16 Give n pneumococcal 23-valent vaccine 05/26/15 Given tetanus/diphtheria/pertussis, acel(Tdap) 1 09/19/10 Recorded 1Result Comment: [01/18/2016] school Medications celecoxib 200 mg oral capsule 1 capsule = 200 mg, By Mouth, Daily, # 30 capsule, 0 Refills, Maintenance, 03/10/22 9:59:00 EST, Capsule, [facility], Partial fill upon patient request [...] Refills, Maintenance, 06/30/22 14:02:00 EDT, REC Powder, [facility], Partial fill upon patient request if [...] 06/30/22 14:02:00 EDT, Route to Pharmacy Electronically, [facility], Partialfill upon patient request if [...] 0 Refills, Maintenance, 06/30/22 14:02:00 EDT, Capsule, [facility], Partial fill upon patient request [...] Procedure Date Device Type Site Transvaginal Tape Fadia Faulkner MD 06/30/22 Unk nown Urethra Device Identifier Serial Number Lot or Batch Number Manufacturing Date Expiration Date Distinct Identification Code MRI Safety Implantable Status Assigning Authority Unknown Unknown [id number] Unknown 06/04/25 Unknown Unknown Active Unknown Patient Care team information Care Team Personnel Name: Sharmaine Hunt RN Position: [facility] RN Member Role: Primary Care Nurse Name: Cait Rodriguez RN Position: [facility] RN Member Role: Primary Care Nurse Name: Rosa Isela [place] RN Position: [facility] RN Member Role: Primary Care Nurse Name: Dinah Rosas RN Position: [facility] RN Member Role: Primary Care Nurse Name: Sage Porter RN Position: [facility] RN Member Role: Primary Care Nurse Name: Soha James RN Position: [facility] RN Member Role: Primary Care Nurse Name: Yvonne [place] RN Position: [facility] AMB Nurse Member Role: Primary Care Nurse Name: Maddie Kim MD Position: [facility] Physician - Primary Care Member Role: PCP Address: Address: [address] [place] [address], [address] [place] [id number] Name: Dinah Cid RN Position: [facility] RN Member Role: Primary Care Nurse Name: Samreen Cole RN Position: [facility] Director Educational Radio Member Role: Primary Care Nurse Name: Stella Dent RN Position: [facility] RN Member Role: Primary Care Nurse Name: Marilynn Galvin RN Position: [facility] RN Member Role: Primary Care Nurse Name: Elva Ornelas RN Position: [facility] Director Educational Radio Member Role: Primary Care Nurse Name: Enriqueta Phan RN Position: [facility] Director Educational Radio Member Role: Primary Care Nurse Care Team Related Persons Name: RYANNE CLANCY Address: home [address] [address] Name: FARIBA MARLOW Address: [address] [place] [address] Name: JONES MARLOW Address: [address] [place] [address] Name: JAMES OGDEN
--- OUTSIDE RECORDS SUMMARY | 2024-01-22 07:50 | XMS_ITS | Continuity of Care Document ---
Author Organization [facility] Address [address] [place] [address] [address] [place] [address]- Care Team Providers Care Detonator Maker Name Role Phone Julio AHUMADA, Maddie Hi Primary Care Physician [place] [facility] [place] Date(s): 06/11/23 - 07/11/[address] [place] [address]- Allergies, Adverse Reactions, Alerts Substance Reaction Severity Status penicillin RASH Active Dilaudid red face, itchy over wholw body Active Bactrim DS Throat swelling Active Immunizations Given and Recorded Vaccine Date Status Refusal Reason influenza virus vaccine, inactivated 01/18/16 Give n pneumococcal 23-valent vaccine 05/26/15 Given tetanus/diphtheria/pertussis, acel(Tdap) 1 09/19/10 Recorded 1Result Comment: [01/18/2016] school Medications Divalproex Sodium = 1,000 mg, By Mouth, take BID, 0 Refills, Maintenance, 11/15/21 8:03:00 EDT, Partial fill upon patient request if the prescription is for a schedule II opioid drug. Start Date: 11/15/21 Status: Ordered EpiPen 2-Johan 0.3 mg injectable kit = 0.3 mg, Intramuscular, Once, # 1 each, 0 Refills, Soft Stop, 04/17/23 16:24:00 EST, [facility]/pharmacy #[id number], Partial fill upon patient request if the prescription is for a schedule II opioid drug., 159,cm, 04/17/23 15:16:00 EST, Height, 106, kg, ... Start Date: 04/17/23 Status: Ordered gabapentin 300 mg oral capsule [...] opioid drug. Start Date: 11/15/21 Status: Ordered Lisinopril = 5 mg, By [...] Refills, Maintenance, 06/30/22 14:02:00 EDT, REC Powder, [facility], Partial fill upon patient request if the prescription is for a schedule II opioid drug., 17 Gm By... Start Date: 06/30/22 Status: Ordered Naltrexone Daily, 0 Refills, Maintenance, 06/11/23 12:11:00 EDT, Partial fill upon patient request if the prescription is for a schedule II opioid drug. Start Date: 06/11/23 Status: Ordered omeprazole 20 mg oral delayed release tablet 1 tablet = 20 mg, By Mouth, Daily, 0 Refills, Maintenance, 11/15/21 8:04:00 EDT, Partial fill upon patient request if the prescription is for a schedule II opioid drug. Start Date: 11/15/21 Status: Ordered prazosin 5 mg oral capsule See Instructions, 1 capsule By Mouth at bedtime, Refills 0, Maintenance, 06/12/22 11:39:00 EDT, Instructions Replace Required Details, Partial fill upon patient request if the prescription is for a schedule II opioid drug. Start Date: 06/12/22 Status: Ordered Tizanidine 5 mg, By Mouth, 3 times a day, Refills 0, Maintenance, 04/17/23 15:19:00 EST, Partial fill upon patient request if the prescription is for a schedule II opioid drug. Start Date: 04/17/23 Status: Ordered Tylenol 325 mg oral capsule 2 capsule = 650 mg, By Mouth, Every 4 hours, PRN as needed for pain, # 50 capsule, 0 Refills, Maintenance, 06/30/22 14:02:00 EDT, Capsule, [facility], Partial fill upon patient [...] Procedure Date Device Type Site Transvaginal Tape Cysto Fadia Byrd MD 06/30/22 Unk nown Urethra Device Identifier Serial Number Lot or Batch Number Manufacturing Date Expiration Date Distinct Identification Code MRI Safety Implantable Status Assigning Authority Unknown Unknown [id number] Unknown 06/04/25 Unknown Unknown Active Unknown Patient Care team information Care Team Personnel Name: Sharmaine Hunt RN Position: [facility] RN Member Role: Primary Care Nurse Name: aCit Rodriguez RN Position: [facility] RN Member Role: Primary Care Nurse Name: Rosa Isela Willis RN Position: [facility] SN RN Member Role: Primary Care Nurse Name: Dinah Rosas RN Position: [facility] RN Member Role: Primary Care Nurse Name: Sage Porter RN Position: [facility] RN Member Role: Primary Care Nurse Name: Soha James RN Position: [facility] RN Member Role: Primary Care Nurse Name: Yvonne Armstrong RN Position: [facility] AMB Nurse Member Role: Primary Care Nurse Name: Maddie Kim MD Position: [facility] Physician - Primary Care Member Role: PCP Address: Address: [address] [place] [address], 1st floor [place], [place] [address] Name: Dinah Cid RN Position: [facility] RN Member Role: Primary Care Nurse Name: Samreen Cole RN Position: [facility] Plant Breeder Scientist Member Role: Primary Care Nurse Name: Stella Dent RN Position: [facility] RN Member Role: Primary Care Nurse Name: Marilynn Galvin RN Position: [facility] RN Member Role: Primary Care Nurse Name: Elva Ornelas RN Position: [facility] Plant Breeder Scientist Member Role: Primary Care Nurse Name: Enriqueta Phan RN Position: [facility] Plant Breeder Scientist Member Role: Primary Care Nurse Care Team Related Persons Name: RYANNE CLANCY Address: home [address] [facility] [place] [address] [place] [address] Name: FARIBA MARLOW Address: [address] [place] [address] Name: JONES MARLOW Address: [address] [place] [address] Name: JAMES OGDEN
--- OUTSIDE RECORDS SUMMARY | 2024-01-22 07:50 | XMS_ITS | Continuity of Care Document ---
Author Organization [facility] del [facility]opope[facility] Address [address], [address] [place] [address]- Care Team Providers Care Sensory Scientist Name Role Phone Not on Staff, PCP Primary Care Physician Unavail able [place] [facility] [place] 12[place]21 [facility] Jerzy Beckers [facility] [address], 4th [place] [address]- Attending Physician: Marvin Chaudhari Admitting Physician: Marvin Chaudhari Referring Physician: Marvin Chaudhari Allergies, Adverse [...] Guardian Refuses 1Result Comment: [01/18/2016] school Medications Divalproex Sodium [...] opioid drug. Start Date: 09/09/21 Status: Ordered omeprazole 20 mg oral delayed release tablet 1 tablet = 20 mg, By Mouth, Daily, 0 Refills, Maintenance, 11/15/21 8:04:00 EDT, Partial fill upon patient request if the prescription is for a schedule II opioid drug. Start Date: 11/15/21 Status: Ordered prazosin 5 mg oral capsule 5 mg, 1, capsule, By Mouth, 3 times a day, Refills 0, Maintenance, 11/15/21 8:05:00 EDT, Partial fill upon patient request if the prescription is for a schedule II opioid drug. Start Date: 11/15/21 Status: Ordered Problem List Condition Confirmation Course Effective Dates Status H ealth Status Informant Alcohol abuse Confirmed Active Chronic bipolar disorder Confirmed Active Cocaine abuse Confirmed Active H/O gastric bypass Confirmed Active [...] (1/2 pack or more)/day in last 30 days entered on: 09/08/21 Sex Patient Care team information Personnel Name: Not on Staff, PCP
--- OUTSIDE RECORDS SUMMARY | 2024-01-22 07:50 | XMS_ITS | Continuity of Care Document ---
Author Organization [facility] Address [address] [facility], [address] d Floor, [address] [place] [id number]- Care Team Providers Care Sales Representatives Name Role Phone Julio AHUMADA, Maddie Hi Primary Care Physician [place] [facility] [place](s[place] 06/20/22 - 07/20/22 [facility] [address] [facility], [address]rd Floor, [address] [place] [id number] Attending Physician: Marvin Chaudhari Admitting Physician: Marvin [...] 0 Refills, Maintenance, 03/10/22 9:59:00 EST, Capsule, [facility], Partial fill upon patient request [...] Refills, Maintenance, 06/30/22 14:02:00 EDT, REC Powder, [facility], Partial fill upon patient request if [...] 06/30/22 14:02:00 EDT, Route to Pharmacy Electronically, [facility], Partialfill upon patient request if [...] 0 Refills, Maintenance, 06/30/22 14:02:00 EDT, Capsule, [facility], Partial fill upon patient request [...] Safety Implantable Status Assigning Authority Unknown Unknown [id number] Unknown 06/04/25 Unknown Unknown Active Unknown Patient Care team information Care Team Personnel Name: Sharmaine Hunt RN Position: [facility] RN Member Role: Primary Care Nurse Name: Cait Rodriguez RN Position: [facility] RN Member Role: Primary Care Nurse Name: Rosa Isela Willis RN Position: [facility] RN Member Role: Primary Care Nurse Name: Dinah Rosas RN Position: [facility] RN Member Role: Primary Care Nurse Name: Sage Porter RN Position: [facility] RN Member Role: Primary Care Nurse Name: Soha James RN Position: [facility] RN Member Role: Primary Care Nurse Name: Yvonne Armstrong RN Position: [facility] Nurse Member Role: Primary Care Nurse Name: Maddie Kim MD Position: [facility] Physician - Primary Care Member Role: PCP Address: Address: [address] [place] [address], [address] Name: Dinah Cid RN Position: [facility] RN Member Role: Primary Care Nurse Name: Samreen Cole RN Position: [facility] Hospital Automation Control Technician Member Role: Primary Care Nurse Name: Cornelio Fofana RN Position: [facility] RN Suprobina Member Role: Primary Care Nurse Name: Stella Dent RN Position: [facility] RN Member Role: Primary Care Nurse Name: Marilynn Galvin RN Position: [facility] RN Member Role: Primary Care Nurse Name: Elva Ornelas RN Position: [facility] Automation Control Technician Member Role: Primary Care Nurse Name: Enriqueta Phan RN Position: [facility] Automation Control Technician Member Role: Primary Care Nurse Care Team Related Persons Name: RYANNE CLANCY Address: home [address] [facility] [address] [place] [address] Name: FARIBA MARLOW Address: home [address] [place] [id number] Name: JONES MARLOW Address: home [address] [place] [address] Name: JAMES OGDEN
--- OUTSIDE RECORDS SUMMARY | 2024-01-22 07:50 | XMS_ITS | Continuity of Care Document ---
Author Organization [facility] Address [address] [place] [address]- Care Team Providers Care Coupon And Bond Collection Clerk Name Role Phone Not on Staff, PCP Primary Care Physician Unavail able Encounter [facility] Date(s): 01/06/19 - 04/24/19 [facility] [address] [place] [id number] Attending Physician: Gregoria Pozo DO Admitting Physician: Gregoria Pozo DO Referring Physician: Luis Angel Arevalo MD Allergies, Adverse Reactions, Alerts Substance Reaction [...] 01/09/19 9:44:56 EST, Route to Pharmacy Electronically, NCPDP_[id number], [facility] [address] [facility] Start Date: 01/09/19 Status: Ordered divalproex sodium [...] 01/09/19 9:55:33 EST, Route to Pharmacy Electronically, NCPDP_ID-[id number], [facility] - [address] [place] [address] Start Date: 01/09/19 Status: Ordered hydrOXYzine pamoate [...] Replace Required Details, Route to Pharmacy Electronically, NCPDP_ID-[id number], [facility] Start Date: 01/09/19 Status: Ordered [...] 01/09/19 9:49:50 EST, Route to Pharmacy Electronically, NCPDP_[id number], [facility] [address] [facility] Start Date: 01/09/19 Status: Ordered Problem List Condition Effective Dates Status Health Status Inform ant Alcohol abuse(Confirmed) Active Chronic bipolar disorder(Confirmed) Active Cocaine abuse(Confirmed) Active H/O gastric bypass(Confirmed) Active Headache(Confirmed) Active History of tubal ligation(Confirmed) Active Hx of cholecystectomy(Confirmed) Active Bilateral low back pain(Confirmed) Active Low blood pressure(Confirmed) Active Nicotine dependence(Confirmed) Active UI (urinary incontinence)(Confirmed) Active Social History Social History Type Response Tobacco Use: 4 or less cigar ettes(less than 1/4 pack)/day in last 30 days. Sex
--- OUTSIDE RECORDS SUMMARY | 2024-01-22 07:50 | XMS_ITS | Continuity of Care Document ---
Author Organization [facility] Address [address] [place] [address]- Care Team Providers Care Film Process Operator Name Role Phone Julio AHUMADA, Maddie Hi Primary Care Physician Encounter 03/12/22 - 03/17/22 [facility] [address] [place] [address]- Discharge Disposition: [facility] Allergies, Adverse Reactions, Alerts Substance Reaction Severity [...] Guardian Refuses 1Result Comment: [01/18/2016] school Medications acetaminophen 325 mg oral tablet 650 mg, By Mouth, Every 6 hours, May take OTC not to exceed 3000 mg/day, Refills 0, Maintenance, 03/10/22 10:02:00 EST, Partial fill upon patient request if the prescription is for a schedule II opioid drug. Start Date: 03/10/22 Status: Ordered apixaban 2.5 mg oral tablet 1 tablet = 2.5 mg, By Mouth, 2 times a day, # 60 tablet, 0 Refills, Maintenance, 03/10/22 9:59:00 EST, Tablet, [facility], Partial fill upon patient request if the prescription is for aschedule II opioid drug., 160, cm, 03/10/22 6:50:00... Start Date: 03/10/22 Stop Date: 04/09/22 Status: Ordered celecoxib 200 mg oral capsule 1 capsule = 200 mg, By Mouth, Daily, # 30 capsule, 0 Refills, Maintenance, 03/10/22 9:59:00 EST, Capsule, [facility], Partial fill upon patient request if the prescription is for a schedule II opioid drug., 160, cm, 03/10/22 6:50:00 EST,... Start Date: 03/10/22 Status: Ordered Divalproex Sodium = 1,000 mg, By Mouth, take BID, 0 Refills, Maintenance, 11/15/21 8:03:00 EDT, Partial fill upon patient request if the prescription is for a schedule II opioid drug. Start Date: 11/15/21 Status: Ordered docusate sodium 100 mg oral capsule 1 capsule = 100 mg, By Mouth, 2 times a day, # 60 capsule, 0 Refills, Maintenance, 03/10/22 9:59:00EST, Capsule, [facility], Partial fill upon patient request if the prescription is for a schedule II opioid drug., 160, cm, 03/10/22 6:50... Start Date: 03/10/22 Status: Ordered gabapentin 300 mg oral capsule [...] drug. Start Date: 09/09/21 Status: Ordered MiraLax Powder 1 pack/packet = 17 Gm, By Mouth, Daily, PRN Constipation, 0 Refills, Maintenance, 03/10/22 10:02:00EST, Powder, Partial fill upon patient request if the prescription is for a schedule II opioid drug. Start Date: 03/10/22 Status: Ordered omeprazole 20 mg oral delayed release tablet 1 tablet = 20 mg, By Mouth, Daily, 0 Refills, Maintenance, 11/15/21 8:04:00 EDT, Partial fill upon patient request if the prescription is for a schedule II opioid drug. Start Date: 11/15/21 Status: Ordered senna 187 mg oral tablet 1 tablet = 8.6 mg, By Mouth, Daily at bedtime, PRN as needed for constipation, 0 Refills, Maintenance, 03/10/22 10:02:00 EST, Tablet, Partial fill upon patient request if the prescription is for a schedule II opioid drug. Start Date: 03/10/22 Status: Ordered Problem List Condition Confirmation Course [...] Team Personnel Name: Sharmaine Hunt RN Position: [facility] RN Member Role: Primary Care Nurse Name: Cait Rodriguez RN Position: [facility] RN Member Role: Primary Care Nurse Name: Rosa Isela Willis RN Position: [facility] SN RN Member Role: Primary Care Nurse Name: Dinah Rosas RN Position: [facility] RN Member Role: Primary Care Nurse Name: Sage Porter RN Position: [facility] RN Member Role: Primary Care Nurse Name: Soha James RN Position: [facility] RN Member Role: Primary Care Nurse Name: Yvonne Armstrong RN Position: [facility] AMB Nurse Member Role: Primary Care Nurse Name: Maddie Kim MD Position: [facility] Physician (General Medicine) Member Role: PCP Address: Address: [address] [place] [address] Name: Dinah Cid RN Position: [facility] RN Member Role: Primary Care Nurse Name: Samreen Cole RN Position: [facility] Optical Lab Technician Member Role: Primary Care Nurse Name: Cornelio Fofana RN Position: [facility] RN Yadi Member Role: Primary Care Nurse Name: Lesly Lamb RN Position: [facility] RN Member Role: Primary Care Nurse Name: Stella Dent RN Position: [facility] RN Member Role: Primary Care Nurse Name: Marilynn Galvin RN Position: [facility] RN Member Role: Primary Care Nurse Name: Elva Ornelas RN Position: [facility] Optical Lab Technician Member Role: Primary Care Nurse Name: Enriqueta Phan RN Position: [facility] Optical Lab Technician Member Role: Primary Care Nurse Care Team Related Persons Name: RYANNE CLANCY Address: home [address] [place] [address] Name: FARIBA MARLOW Address: [address] [place] [address] Name: JONES MARLOW Address: home [address] [place] [id number] Name: JAMES OGDEN
--- OUTSIDE RECORDS SUMMARY | 2024-01-22 07:50 | XMS_ITS | Continuity of Care Document ---
Author Organization [facility] Address [address] [place] [address] [address] [place] [address]- Care Team Providers Care Airline Stewardess Name Role Phone Julio AHUMADA, Maddie Hi Primary Care Physician Encounter [facility] Date(s): 12/26/22 - 01/25/[address] [place] [address]- Attending Physician: Marvin Chaudhari Admitting Physician: Marvin Chaudhari Referring Physician: AdmMarvin bar Allergies, Adverse Reactions, Alerts Substance Reaction Severity [...] 0 Refills, Maintenance, 03/10/22 9:59:00 EST, Capsule, [facility], Partial fill upon patient [...] Refills, Maintenance, 06/30/22 14:02:00 EDT, REC Powder, [facility], Partial fill upon patient request if [...] 06/30/22 14:02:00 EDT, Route to Pharmacy Electronically, [facility], Partialfill upon patient request [...] 0 Refills, Maintenance, 06/30/22 14:02:00 EDT, Capsule, [facility], Partial fill upon patient [...] incontinence) Confirmed Active Vitamin D deficiency Confirmed 7/5/10 Active Social History Social History Type Response [...] Safety Implantable Status Assigning Authority Unknown Unknown [id number] 2 Unknown 06/04/25 Unknown Unknown Active Unknown Patient Care team information Care Team Personnel Name: Sharmaine Hunt RN Position: [facility] RN Member Role: Primary Care Nurse Name: Cait Rodriguez RN Position: [facility] RN Member Role: Primary Care Nurse Name: Rosa Isela Willis RN Position: [facility] SN RN Member Role: Primary Care Nurse Name: Dinah Rosas RN Position: [facility] RN Member Role: Primary Care Nurse Name: Sage Porter RN Position: [facility] RN Member Role: Primary Care Nurse Name: Soha James RN Position: [facility] RN Member Role: Primary Care Nurse Name: Yvonne Armstrong RN Position: [facility] RN Member Role: Primary Care Nurse Name: Maddie iKm MD Position: [facility] Physician - Primary Care Member Role: PCP Address: Address: [address] [place] [address], [address] [place] [id number] Name: Dinah Cid RN Position: [facility] RN Member Role: Primary Care Nurse Name: Samreen Cole RN Position: [facility] Mortgage Broker Member Role: Primary Care Nurse Name: Stella Dent RN Position: [facility] RN Member Role: Primary Care Nurse Name: Marilynn Galvin RN Position: [facility] RN Member Role: Primary Care Nurse Name: Elva Ornelas RN Position: [facility] Mortgage Broker Member Role: Primary Care Nurse Name: Enriqueta Pahn RN Position: [facility] Mortgage Broker Member Role: Primary Care Nurse Care Team Related Persons Name: RYANNE CLANCY Address: home [address] [address] Name: FARIBA MARLOW Address: home [address] [place] [id number] Name: JONES MARLOW Address: home [address] [place] [id number] Name: JAMES OGDEN
--- OUTSIDE RECORDS SUMMARY | 2024-01-22 07:51 | XMS_ITS | Continuity of Care Document ---
Author Organization [facility] Address [address] [place] [address]- Care Team Providers Care Sharepoint Engineer Name Role Phone Julio AHUMADA, Maddie Hi Primary Care Physician [phone] [id number] Date(s): 02/09/22 - 03/11/22 [facility] [address] [place], [place] [address] Attending Physician: Marvin Chaudhari Admitting Physician: Marvin [...] 0 Refills, Maintenance, 03/10/22 9:59:00 EST, Tablet, [facility], Partial fill upon patient request if the prescription is for aschedule II opioid drug., 160, cm, 03/10/22 6:50:00... Start Date: 03/10/22 Stop Date: 04/09/22 Status: Ordered celecoxib 200 mg oral capsule 1 capsule = 200 mg, By Mouth, Daily, # 30 capsule, 0 Refills, Maintenance, 03/10/22 9:59:00 EST, Capsule, [facility], Partial fill upon patient request [...] capsule, 0 Refills, Maintenance, 03/10/22 9:59:00EST, Capsule, [facility], Partial fill upon patient request [...] Status: Ordered oxyCODONE 5 mg oral tablet See Instructions, PRN, 1-2 tablet By Mouth Every 4 hours, # 84 tablet, Refills 0, Tot. Refills 0, Acute 03/17/22 10:01:00 EST, Pain , Severe, 03/10/22 10:00:00 EST, Instructions Replace Required Details, Route to Pharmacy Electronically, [facility]... Start Date: 03/10/22 Stop Date: 03/17/22 Status: Ordered senna 187 mg oral tablet 1 tablet = 8.6 mg, By Mouth, Daily at bedtime, PRN as needed for constipation, 0 Refills, Maintenance, 03/10/22 10:02:00 EST, Tablet, Partial fill upon patient request if the prescription is for a schedule II opioid drug. Start Date: 03/10/22 Status: Ordered traMADol 50 mg oral tablet See Instructions, PRN Pain , Mild, 1-2 tablet By Mouth Every 6 hours not to exceed 400 mg/day, # 56tablet, 0 Refills, Acute 03/17/22 10:00:00 EST, 03/10/22 10:00:00 EST, Tablet, [facility], Partial fill upon patient request if the pre... Start Date: 03/10/22 Stop Date: 03/17/22 Status: Ordered Problem List Condition Confirmation Course [...] for 32 yrs.; entered on: 02/01/22 Sex Note * Event Display: Non Lab Results Authored Date: Patient Care team information Care Team Personnel Name: Sharmaine Hunt RN Position: [facility] RN Member Role: Primary Care Nurse Name: Cait Rodriguez RN Position: [facility] RN Member Role: Primary Care Nurse Name: Rosa Isela Willis RN Position: [facility] RN Member Role: Primary Care Nurse Name: Dinah Rosas RN Position: [facility] RN Member Role: Primary Care Nurse Name: Sage Porter RN Position: [facility] RN Member Role: Primary Care Nurse Name: Soha James RN Position: [facility] RN Member Role: Primary Care Nurse Name: Yvonne Armstrong RN Position: [facility] AMB Nurse Member Role: Primary Care Nurse Name: Maddie Kim MD Position: [facility] Physician (General Medicine) Member Role: PCP Address: Address: [address] [place] [id number]- Name: Dinah Cid RN Position: [facility] RN Member Role: Primary Care Nurse Name: Samreen Cole RN Position: [facility] Serger Member Role: Primary Care Nurse Name: Cornelio Fofana RN Position: [facility] RN Supv Member Role: Primary Care Nurse Name: Lesly Lamb RN Position: [facility] RN Member Role: Primary Care Nurse Name: Stella Dent RN Position: [facility] RN Member Role: Primary Care Nurse Name: Marilynn Galvin RN Position: [facility] RN Member Role: Primary Care Nurse Name: Elva Ornelas RN Position: [facility] Serger Member Role: Primary Care Nurse Name: Enriqueta Phan RN Position: [facility] Serger Member Role: Primary Care Nurse Care Team Related Persons Name: LCANCY RYANNE Address: [address] [place] [address] Name: FARIBA MARLOW Address: [address] [place] [address] Name: JONES MARLOW Address: [address] [place] [address] Name: JAMES OGDEN
--- OUTSIDE RECORDS SUMMARY | 2024-01-22 07:51 | XMS_ITS | Continuity of Care Document ---
Author Organization [facility] Address [address] [place] [address]- Care Team Providers Care Audit Director Name Role Phone Julio AHUMADA, Maddie Hi Primary Care Physician Encounter [facility] Date(s): 03/15/22 - 04/14/22 [facility] [address] [place], [place] [address] Attending Physician: Marvin Chaudhari Admitting Physician: [...] 0 Refills, Maintenance, 03/10/22 9:59:00 EST, Tablet, [facility], Partial fill upon patient request if the prescription is for aschedule II opioid drug., 160, cm, 03/10/22 6:50:00... Start Date: 03/10/22 Stop Date: 04/09/22 Status: Ordered celecoxib 200 mg oral capsule 1 capsule = 200 mg, By Mouth, Daily, # 30 capsule, 0 Refills, Maintenance, 03/10/22 9:59:00 EST, Capsule, [facility], Partial fill upon patient request [...] capsule, 0 Refills, Maintenance, 03/10/22 9:59:00EST, Capsule, [facility], Partial fill upon patient request [...] Team Personnel Name: Sharmaine Hunt RN Position: [facility] RN Member Role: Primary Care Nurse Name: Cait Rodriguze RN Position: [facility] RN Member Role: Primary Care Nurse Name: Rosa Isela Willis RN Position: [facility] SN RN Member Role: Primary Care Nurse Name: Dinah Rosas RN Position: [facility] RN Member Role: Primary Care Nurse Name: Sage Porter RN Position: [facility] RN Member Role: Primary Care Nurse Name: Soha James RN Position: [facility] RN Member Role: Primary Care Nurse Name: Yvonne Armstrong RN Position: [facility] Nurse Member Role: Primary Care Nurse Name: Maddie Kim MD Position: [facility] Physician (General Medicine) Member Role: PCP Address: Address: [address] [place] [id number] Name: Dinah Cid RN Position: [facility] RN Member Role: Primary Care Nurse Name: Samreen Cole RN Position: [facility] Environmental Projects Advisor Member Role: Primary Care Nurse Name: Cornelio Fofana RN Position: [facility] RN Supv Member Role: Primary Care Nurse Name: Lesly Lamb RN Position: [facility] RN Member Role: Primary Care Nurse Name: Stella Dent RN Position: [facility] RN Member Role: Primary Care Nurse Name: Marilynn Galvin RN Position: [facility] RN Member Role: Primary Care Nurse Name: Elva Ornelas RN Position: [facility] [employer] Advisor Member Role: Primary Care Nurse Name: Enriqueta Phan RN Position: [facility] [employer] Advisor Member Role: Primary Care Nurse Care Team Related Persons Name: RYANNE CLANCY Address: [address] [place] [address] Name: FARIBA MARLOW Address: [address] [place] [address] Name: JONES MARLOW Address: [address] [place] [address] Name: JAMES OGDEN
--- OUTSIDE RECORDS SUMMARY | 2024-01-22 07:51 | XMS_ITS | Continuity of Care Document ---
Author Organization [facility] ter Address [address] [place] [id number]- Care Team Providers Care Jewelry Department Supervisor Name Role Phone Julio AHUMADA, Maddie Hi Primary Care Physician Encounter [facility] Date(s): 08/13/23 - 08/14/[address] [address]- Encounter Diagnosis Retained orthopedic hardware(Discharge Diagnosis) - 08/13/23 Discharge Disposition: A-Transfer VNA/Home Health Attending Physician: Maame Cota MD Admitting Physician: Maame Cota MD Referring Physician: Maame Cota MD Allergies, Adverse Reactions, Alerts Substance Reaction Severity Status penicillin RASH Active Dilaudid red face, itchy over wholw body Active Bactrim DS Throat swelling Active Immunizations Given and Recorded Vaccine Date Status Refusal Reason influenza virus vaccine, inactivated 01/18/16 Give n pneumococcal 23-valent vaccine 05/26/15 Given tetanus/diphtheria/pertussis, acel(Tdap) 1 09/19/10 Recorded 1Result Comment: [01/18/2016] school Medications aspirin 81 mg oral delayed release tablet 81 mg, 1, tablet, By Mouth, 2 times a day, # 28 tablet, Refills 0, Tot. Refills 0, Maintenance, 08/14/23 11:58:00 EDT, Route to Pharmacy Electronically, [facility], Partial fill upon patient request if the prescription is for a schedule... Start Date: 08/14/23 Stop Date: 08/28/23 Status: Ordered Divalproex Sodium = 1,000 mg, By Mouth, take BID, 0 Refills, Maintenance, 11/15/21 8:03:00 EDT, Partial fill upon patient request if the prescription is for a schedule II opioid drug. Start Date: 11/15/21 Status: Ordered EpiPen 2-Johan 0.3 mg injectable kit = 0.3 mg, Intramuscular, Once, # 1 each, 0 Refills, Soft Stop, 04/17/23 16:24:00 EST, [facility]/pharmacy #[id number], Partial fill upon patient request if the prescription is for a schedule II opioid drug., 159,cm, 04/17/23 15:16:00 EST, Height, 106, kg, ... Start Date: 04/17/23 Status: Ordered gabapentin 300 mg oral capsule 600 mg, Capsule, By Mouth, 08/14/23 9:00:00 EDT Start Date: 08/14/23 Stop Date: 08/14/23 Status: Completed gabapentin 300 mg oral capsule 600 mg, 2, capsule, By Mouth, 3 times a day, # 90 capsule, Refills 5, Maintenance, 03/10/22 5:20:00EST, Partial fill upon patient request if the prescription is for a schedule II opioid drug. Start Date: 03/10/22 Status: Ordered ibuprofen 600 mg oral tablet 600 mg, By Mouth, 3 times a day, PRN, Refills 0, Maintenance, Pain , Mild, 08/14/23 11:57:00 EDT, Partial fill upon patient request if the prescription is for a schedule II opioid drug. Start Date: 08/14/23 Status: Ordered Invega Sustenna 234 mg/1.5 mL [...] opioid drug. Start Date: 11/11/21 Status: Ordered lisinopril 5 mg oral tablet 5 mg, Tablet, By Mouth, 08/14/23 9:00:00 EDT Start Date: 08/14/23 Stop Date: 08/14/23 Status: Completed Minerin topical cream Topically, 4 times a day, 0 Refills, Maintenance, 09/09/21 22:21:00 EDT, Partial fill upon patient request if the prescription is for a schedule II opioid drug. Start Date: 09/09/21 Status: Ordered MiraLax oral powder for reconstitution = 17 Gm, By Mouth, Daily, dissolve in water before taking, # 255 Gm, 0 Refills, Maintenance, 06/30/22 14:02:00 EDT, REC Powder, [facility], Partial fill upon patient request if the prescription is for a schedule II opioid drug., 17 Gm By... Start Date: 06/30/22 Status: Ordered MorPHINE Inj 2 mg, Injection, IV Push, Every 2 hours, FOR moderate PAIN ONLY, PRN for Pain , Moderate, may give 2 mg based on patient assessment; hold for respirations less than 12, change in mentation, Routine, 08/13/23 14:54:00 EDT Start Date: 08/13/23 Stop Date: 08/14/23 Status: Discontinued omeprazole 20 mg oral delayed release tablet 1 tablet = 20 mg, By Mouth, Daily, 0 Refills, Maintenance, 11/15/21 8:04:00 EDT, Partial fill upon patient request if the prescription is for a schedule II opioid drug. Start Date: 11/15/21 Status: Ordered ondansetron 4 mg oral tablet 1 tablet = 4 mg, By Mouth, Every 8 hours, PRN Nausea & Vomiting, # 10 tablet, 0 Refills, Maintenance, 07/27/23 9:15:00 EDT, Tablet, Partial fill upon patient request if the prescription is for a schedule II opioid drug. Start Date: 07/27/23 Status: Ordered prazosin 5 mg oral capsule [...] opioid drug. Start Date: 04/17/23 Status: Ordered traMADol 50 mg oral tablet See Instructions, PRN Pain , Moderate, 1/2-1 By Mouth Every 6-8 hours as needed for moderate to severe pain, # 12 tablet, 0 Refills, Acute 08/21/23 11:57:00 EDT, 08/14/23 11:57:00 EDT, Tablet, [facility], Partial fill upon patient reques... Start Date: 08/14/23 Stop Date: 08/21/23 Status: Ordered Tylenol 325 mg oral tablet 975 mg, Tablet, By Mouth, 08/14/23 8:00:00 EDT Start Date: 08/14/23 Stop Date: 08/14/23 Status: Completed Tylenol 325 mg oral tablet 975 mg, By Mouth, Every 6 hours, # 100 tablet, Refills 0, Tot. Refills 0, Acute 09/04/23 11:57:00 EDT, 08/14/23 11:56:00 EDT, Route to Pharmacy Electronically, [facility], Partial fill upon patient request if the prescription is for a sc... Start Date: 08/14/23 Stop Date: 09/04/23 Status: Ordered Problem List Condition Confirmation Course [...] Active Vitamin D deficiency Confirmed 08/23/09 Active Diagnosis Diagnosis Type Effective Dates Health Status Clinical Service Informant Retained orthopedic hardware Discharge Diagnosis 08/13/23 Non-Specified Vital Signs Most recent to oldest [Reference Range]: 1 2 3 4 Height 159 cm (08/14/23 11:19 AM) 159 cm (08/14/23 6:18 AM) 159 cm (08/13/23 3:00 PM) Weight 105.3 kg (08/13/23 3:00 PM) Oxygen Saturation [94-100 %] 98 % (08/14/23 11:19 AM) 98 % (08/14/23 6:18 AM) 98 % (08/14/23 3:00 AM) Pulse Rate [55-90 bpm] 77 bpm (08/14/23 11:19 AM) 78 bpm (08/14/23 6:18 AM) 74 bpm (08/14/23 3:00 AM) Body Mass Index [18.5-24.99 kg/m2] 41.65 kg/m2 *>HHI* (08/13/23 3:00 PM) Blood Pressure [90-138/55-84 mm Hg] 164/78mm Hg *H* (08/14/23 11:19 AM) 166/79mm Hg *H* (08/14/23 7:22 AM) 166/79mm Hg *H* (08/14/23 6:18 AM) Respiratory Rate [16-30 br/min] 18 br/min (08/14/23 11:19 AM) 18 br/min (08/14/23 10:18 AM) 18 br/min (08/14/23 10:18 AM) 18 br/min (08/14/23 10:18 AM) Temperature [96.8-100.4 DegF] 98.1 DegF (08/14/23 11:19 AM) 98.0 DegF (08/14/23 6:18 AM) 97.9 DegF (08/14/23 3:00 AM) Liters per Minute 0 L/min (08/13/23 12:45 PM) 0 L/min (08/13/23 12:15 PM) 5 L/min (08/13/23 12:07 PM) Mode of Delivery (Oxygen) Room air (08/14/23 11:19 AM) Room air (08/14/23 6:18 AM) Room air (08/14/23 3:00 AM) Blood pressure sites Arm, left (08/14/23 11:19 AM) Arm, left (08/14/23 6:18 AM) Arm, left (08/14/23 3:00 AM) Temperature Route Oral (08/14/23 11:19 AM) Oral (08/14/23 6:18 AM) Oral (08/14/23 3:00 AM) Dry Weight 105.3 kg (08/13/23 3:00 PM) 105.3 kg (08/13/23 9:00 AM) Dry Weight Obtained Via Standing scale (08/13/23 9:00 AM) Social History Social History Type Response Tobacco Other: Quit 3 weeks ago.. Sex Implantable Device List Procedure Provider Procedure Date Device Type Site Transvaginal Tape Cysto Carson AHUMADA, Fadia Bedoya 06/30/22 Unk nown Urethra Device Identifier Serial Number Lot or Batch Number Manufacturing Date Expiration Date Distinct Identification Code MRI Safety Implantable Status Assigning Authority Unknown Unknown [id number] Unknown 06/04/25 Unknown Unknown Active Unknown History and physical note * Event Display: History and Physical Hospital Authored Date: Cardiology * Event Display: Cardiac Rhythm Strips Authored Date: Hospital Progress note * Gunnar Gonzalez RN: PERFORM, SIGN, VERIFY Event Display: Progress Note Hospital Authored Date: Patient: CHRISTINE MARLOW Age: 47 years Sex: Female : 1975 Associated Diagnoses: None Author: Gunnar Gonzalez RN Findings Problem Related to Alteration in Musculoskeletal : Alteration in Musculoskeletal Func/new 08/14/2023 10:00 EDT Alteration in Musculoskeletal Related to Orthopedic Procedure Goals & Outcomes, Musculoskeletal Affected extremity will maintain color/motion/sensation, Pt demonstrates precautions/exercise/ transfers per protocol, Pt will ambulate safely with assistive device, Pt will report acceptable level of comfort/pain relief Interventions, Musculoskeletal Monitor patients ambulation status, monitor Color/Motion/Sensation, Encourage deep breathing & coughing exercises, Teach pt/caregiver on use of pain scale BH Goals/Interventions, Musculoskeletal Yes Musculoskeletal, Problem Start 08/13/2023 15:30 Reviewed Plan with, Musculoskeletal Patient Patient Progression, Musculoskeletal Pt progressing according to plan . Nursing Data Vital Signs : VITAL SIGNS SECTION 08/14/2023 6:18 EDT Temperature 98.0 DegF Temperature Route Oral Pulse Rate 78 bpm Respiratory Rate 18 br/min Systolic Blood Pressure 166 mm Hg H Diastolic Blood Pressure 79 mm Hg Blood pressure sites Arm, left Mean Arterial Pressure 108 mm Hg Pulse Pressure 87 mm Hg Oxygen Saturation 98 % Mode of Delivery (Oxygen) Room air . Pain Data : PAIN SECTION 08/14/2023 10:47 EDT 1 - 10 Pain Scale Score 4 . Narrative/Incidental Pt A+Ox4, cooperative with care. LS clear, pt denies SOB, using IS properly. Pt denies CP. +BSx4, no N/V, tolerating regular diet, BM 08/11. OOB with walker, minimal assist, steady. Voiding adequate clear yellow urine in BR. VSS. Evaluation Pt reporting L ankle pain up to 07/29 with block wearing off. Morphine given with good effect, pt aware of being weaned off for discharge. L ankle noam wrap c/d/i. Elevated on pillow. +CMS, +wiggle. Will cont to monitor comfort/LLE status. * Saniya Colon RN: PERFORM, SIGN, VERIFY Event Display: Progress Note Hospital Authored Date: Patient: CHRISTINE MARLOW Age: 47 years Sex: Female : 1975 Associated Diagnoses: None Author: Saniya Colon RN Findings Problem Related to Alteration in Musculoskeletal : Alteration in Musculoskeletal Func/new 08/13/2023 22:00 EDT Alteration in Musculoskeletal Related to Orthopedic Procedure Goals & Outcomes, Musculoskeletal Affected extremity will maintain color/motion/sensation, Pt demonstrates precautions/exercise/ transfers per protocol, Pt will ambulate safely with assistive device, Pt will report acceptable level of comfort/pain relief Interventions, Musculoskeletal Monitor patients ambulation status, monitor Color/Motion/Sensation, Assist with repositioning, Encourage deep breathing & coughing exercises, Notify MD immediately if tissue perfusion deteriorates, Teach & Encourage use of Incentive spirometer, Teach pt/caregiver on use of pain scale, Teach Pt/caregiver on safety precautions BH Goals/Interventions, Musculoskeletal Yes Musculoskeletal, Problem Start 08/13/2023 15:30 Reviewed Plan with, Musculoskeletal Patient Patient Progression, Musculoskeletal Pt progressing according to plan . Narrative/Incidental Pt is A&Ox4. Pt started to have c/o RLE pain approx 0300 rating 4/10 that has had a + effect with scheduled/PRN medication rest repositioning and ice application. Pt is not on Tele has denied c/oCP, palpitations, dizziness. LS clear all lobes bilat on RA no cough or SOB noted, encouraging use of Incentive Spirometer and deep breathing exercises. BS present x4 abdomen is soft and non tender, good PO intake, denies N/V last BM 08/11. Pt has been urinating in the BR clear yellow urine w/o complications, please refer to Interactive Flowsheets for accurate I&O measurements. Pt is resting in bed comfortably callbell is within reach and bed is in the lowest locked position for safety. Willreport any changes PRN. . Evaluation P: Alteration in Musculoskeletal I: As stated above in POC E: s/p hardware removal R ankle w/MD Cota 08/12 POD 1. Pt is WB as emely transfering with staff assistance and walker with a steady gait. NOAM wrap CDI +PP +CMS +wiggle of toes good cap refill <3 secs reports tingling sensation on/off denies burning or numbness at this time. Pt is on Lovenox for DVt Prophylaxis. . * Gunnar Gonzalez RN: PERFORM, SIGN, VERIFY Event Display: Progress Note Hospital Authored Date: Patient: CHRISTINE MARLOW Age: 47 years Sex: Female : 1975 Associated Diagnoses: None Author: Gunnar Gonzalez RN Findings Problem Related to Alteration in Musculoskeletal : Alteration in Musculoskeletal Func/new 08/13/2023 15:00 EDT Alteration in Musculoskeletal Related to Orthopedic Procedure Goals & Outcomes, Musculoskeletal Affected extremity will maintain color/motion/sensation, Pt demonstrates precautions/exercise/ transfers per protocol, Pt will ambulate safely with assistive device, Pt will report acceptable level of comfort/pain relief Interventions, Musculoskeletal Monitor patients ambulation status, monitor Color/Motion/Sensation, Encourage deep breathing & coughing exercises, Teach pt/caregiver on use of pain scale Goals/Interventions, Musculoskeletal Yes Musculoskeletal, Problem Start 08/13/2023 15:30 Reviewed Plan with, Musculoskeletal Patient Patient Progression, Musculoskeletal Pt progressing according to plan . Nursing Data Vital Signs : VITAL SIGNS SECTION 08/13/2023 15:02 EDT Early Warning Score 0.00 08/13/2023 15:02 EDT Temperature 98.7 DegF Temperature Route Oral Pulse Rate 96 bpm H Respiratory Rate 18 br/min Systolic Blood Pressure 149 mm Hg H Diastolic Blood Pressure 91 mm Hg H Blood pressure sites Arm, left Mean Arterial Pressure 110 mm Hg Pulse Pressure 58 mm Hg Oxygen Saturation 99 % Mode of Delivery (Oxygen) Room air . Pain Data : PAIN SECTION 08/13/2023 14:55 EDT Pain Intensity 4 Pain Intensity 4 Pain Intensity 4 . Evaluation Pt arrived to [facility] via bed around 1500. Pt A+Ox4, cooperative with care. LS clear, pt denies SOB. Pt denies CP. +BSx4, no N/V, tolerating diet, BM 08/11. OOB with walker and 1 assist, steady. Voiding adequate clear yellow urine in BR. VSS. Pt reporting 0/10 RLE pain on arrival, nerve block still in effect. RLE noam wrap c/d/i. +Cap refill, toes warm, decreased sensation. Will cont to monitor comfort/RLE status. Note * Gunnar Gonzalez RN: PERFORM Event Display: Discharge/Transfer Note Hospital Authored Date: Nursing Discharge Note Entered On: 08/14/2023 13:33 EDT Performed On: 08/14/2023 13:33 EDT by Gunnar Gonzalez RN Nursing Discharge Note 2 Discharge Time : 08/14/2023 13:33 EDT Discharge Level of Care at Discharge : Homehealth/VNA Discharge VNA/Hospice/Home Care(v001) : [facility] [phone] Patient Left Unit Via : Wheelchair Patient Accompanied Off Unit with : Responsible adult DC Instructions Provided & Signed by Pt : Yes Patient Understands D/C Instructions : Yes Patient Instructions Discharge Signed : Yes Did Pt have Specialty Bed or Wound Vac : No Gunnar Gonzalez RN - 08/14/2023 13:33 EDT * Ruby Hernandez: PERFORM Event Display: Discharge/Transfer Note Hospital Authored Date: Patient: ??KASHMIR, CHRISTINE ? Age:??47 Years?Sex:??Female?:??1975?? Admit Date Admission Date: 08/13/2023 Discharge Date 08/14/23 Discharge Diagnoses Retained orthopedic hardware, 08/13/2023 Hospital Course 47-year-old woman presented??to??the [facility] office??with left ankle pain in the setting of fracture several years ago treated with plate fixation. ??She located pain in an area and examination findingsare such that the symptoms seem most consistent as those related to the underlying fracture fixation implants. ??X- rays show a healed fracture with maintained ankle joint space. ??Surgery for implantremoval was offered and the risk potential outcomes alternatives with those outcomes were discussed.?? She agreed to surgery as proposed with its attendant risk.?? She was scheduled for surgery and admitted postoperatively.? Operative management was indicated and on 08/13/23 the patient underwent the above-mentioned procedure, which was well tolerated. ??Postoperatively, the patient remained hemodynamically stable without complications. ??Patient has been seen and cleared by PT for d/c home.?? She was seen and examined on day of d/c.?? Her hospital course has been unremarkable.?At this time, patient is afebrile,tolerating an oral diet, voiding, and pain is well controlled with oral pain medications. ??Appropriate d/c and F/U instruction were provided, as well as scripts for pain medications.?? Objective/Physical Exam on Day of Discharge Vitals & Measurements T:??98.1?F?? HR:??77??(Peripheral)?? RR:??18?? BP:??164/78?? SpO2:??98%?? HT:??159??cm?? WT:??105.3??kg?? BMI:??41.65?? Patient Discharge Condition Good Discharge Disposition Home w/ services Home Health Face to Face *Denotes mandatory singleton ?? *I certify that this patient is under my care and that I or an allowed non- physician working with me had a face to face encounter with the patient on this date:??08/14/2023 12:31 ?? *The encounter with the patient was in whole, or in part, for the following medical condition, which is the primary diagnosis(es) for home health care:??Retained orthopedic hardware (Z96.9) ?? *Select the indications for the discipline/s that are being arranged for this patient. Nursing (select all that apply): [_] None [_] Medication management (reconciliation, teaching)?? [_] Chronic disease management?? [_] Wound care and treatment?? [_] Home safety evaluation [_] Administer SQ/IM/IV medications?? [_] Cath care?? [_] Drain care?? [_] Trach or GT care?? Other _ Occupation Therapy (select all that apply): [_] None [_] ADL Management [_] Fall prevention training [_] Energy conservation [_] Cognitive training Other _ Physical Therapy (select all that apply): [_] None [_] Functional mobility training [_] Home exercise program to strengthen [_] Increase ROM?? [_] Falls prevention training [_] Home maintenance program for chronic disease Other _ Speech Therapy (select all that apply): [_] None [_] Swallow evaluation and training [_] Speech and language training [_] Cognitive training to process, organize, and/or recall information Other _ ? *Homebound due to (select all that apply): [_] Inability to leave home without assistance/supervision [_] Inability to ambulate without assistance [_] Pain [_] Decreased strength and endurance [_] Unsteady gait [_] Severe SOB and fatigue [_] Impaired transfers [_] Inability to negotiate stairs [_] Limited weight bearing [_] Mental status change? *Physician Signature:??Ruby Cobb PA-C ?? *By signing this, I certify that I have personally evaluated the patient and agree with the findings and recommendations as documented above. ?? Procedures Performed This Visit Removal Hardware Ankle, Left, Ankle Discharge Medications Acetaminophen (Tylenol 325 mg oral tablet)?975?Milligram?By Mouth?Every 6 hours Aspirin (aspirin 81 mg oral delayed release tablet)?81?Milligram?1?tablet?By Mouth?2 times a day?for 14?Days Divalproex Sodium?1,000?Milligram?By Mouth?take BID Emollients, Topical (Minerin topical cream)?Topically?4 times a day EPINEPHrine (EpiPen 2-Johan 0.3 mg injectable kit)?0.3?Milligram?Intramuscular?Once Gabapentin (gabapentin 300 mg oral capsule)?600?Milligram?2?capsule?By Mouth?3 times a day Ibuprofen (ibuprofen 600 mg oral tablet)?600?Milligram?By Mouth?3 times a day?as needed?Pain , Mild Lisinopril?5?Milligram?By Mouth?Daily Omeprazole (omeprazole 20 mg oral delayed release tablet)?1?tab(s)?20?Milligram?By Mouth?Daily Ondansetron (ondansetron 4 mg oral tablet)?1?tab(s)?4?Milligram?By Mouth?Every 8 hours?as needed?Nausea & Vomiting paliperidone (Invega Sustenna 234 mg/1.5 mL intramuscular suspension, extended release)?234?Milligram?Intramuscular?Every 28 days Polyethylene Glycol 3350 (MiraLax oral powder for reconstitution)?17?gram?By Mouth?Daily?dissolve in water before taking Prazosin (prazosin 5 mg oral capsule)?See Instructions?1 capsule By Mouth at bedtime Tizanidine?5?Milligram?By Mouth?3 times a day Tramadol (traMADol 50 mg oral tablet)?See Instructions?as needed?Pain , Moderate?1/2-1 By Mouth Every 6-8 hours as needed for moderate to severe pain Labs Last 24 Hours No qualifying data available. Follow-Up Appointments Added Follow Up ?Time Frame ?Comments Beata AHUMADA, Maame Chase?2 to 3 weeks?Please call to??schedule follow up appointment. Patient Instructions Please contact Dr. Cota' office with any further questions or concerns regarding your injury or surgery. Please take a laxative or stool softener, such as colace or milk of magnesia, as needed for constipation. Elevate operative extremity to reduce swelling; keep bandage clean and dry If any fever, chills, uncontrolled pain, or any other issues you feel may be urgent, do present, consult your physician and/or return to the Emergency Room. You may resume your home medications as prescribed by your PCP You may weightbear as tolerated on operative leg. Keep dressing in place until follow-up.?? Cover with a large plastic bag if showering.?? No swimming, tub baths or soaking leg until terell removed and incisions fully healed. Do not drive while taking??narcotic pain medicine and until instructed otherwise.?? Please take aspirin 81mg twice daily for DVT prophylaxis for at least 2 weeks after surgery or until instructed otherwise at your follow up appointment.?? * Gunnar Gonzalez RN: PERFORM Event Display: Patient Education/Instruction Authored Date: [id number] Inpatient Adult Discharge Instructions. [address] [address] Name: CHRISTINE MARLOW : 1975?? Visit: 08/13/2023 08:01?? Current Date: 08/14/2023 12:59 ?? Account: [id number]?? Inpatient Adult Discharge Instructions We would like to thank you for allowing us to assist you with your healthcare needs. The following includes patient education materials and information regarding your injury/illness. Our entire staffstrives to provide an excellent experience for our patients and their families. PLEASE ENSURE YOU FOLLOW-UP PER THE INSTRUCTIONS BELOW! ?? YOUR OPINION IS IMPORTANT TO US! Please complete the survey you may receive by mail or email. Your feedback will be used to make improvements to the healthcare experiences of our patients and their families. Surveys are administered by [employer] ?? If further treatment with your primary care physician or another doctor is recommended, it is important for you to keep the appointment. Call your primary care physician or return to the Emergency Department immediately if your condition worsens, fails to improve, or new symptoms develop. If you need to find a doctor, you can call [facility] for a referral at [phone] or toll free at [phone]) or log in to [email or web address].. ?? [facility], in keeping with [facility] guidance, no longer requires face masks for staff, patientsor visitors in most situations. Similiar to time spent indoors at other locations, there is the chance that you were exposed to repiratory viruses during your time with us (such as flu or COVID-19). If you develop symptoms concerning for a viral respiratory infection, please seek testing (and treatment if indicated) from your medical provider or home test kit. ?? You can view and manage your care through the patient portal or by using a health care nehemias of your choosing. [employer] is a website that allows you to securely view your medical information including your hospital discharge summary, office visit summaries, medications and follow-up visits. You can also request appointments, renew medications, and request access to your medical information using a health care nehemias of your choosing, or just ask a question. You can enroll at [email or web address] or register during your next office visit. You have been discharged from [facility], Patient Care Unit: SW7??. If you have any questions regarding these instructions, including results of studies pending, afteryou leave, please call us and we will be happy to assist you 11/09. [facility] Your Care Team Attending Physician Beata AHUMADA, Maame Chase?? Consulting Providers Maame Cota MD?? Discharging Providers Ruby Hernandez Your Diagnosis Retained orthopedic hardware Tests Performed Below is a partial list of the tests performed during your hospitalization. You may have had other tests and procedures not included in this list. Please discuss all test results with your provider. CBC?? Primary Care Provider Julio AHUMADA, Maddie Hi? Advance Directive Health Care Proxy on File Yes - Health Care Proxy Discharge Vitals Temperature: 98.1 DegF Height: 159 cm Pulse Rate: 77 bpm Weight: 105.3 kg Respiratory Rate: 18 br/min Body Mass Index:??41.65 kg/m2??Critical Systolic Blood Pressure:??164 mm Hg??High Body surface area: 2.16 Diastolic Blood Pressure: 78 mm Hg ?? Oxygen Saturation: 98 % ?? Studies Pending All studies ordered during this hospital stay have been completed unless listed below. Please discuss all pending results with your provider listed above in these instructions. ?? CBC?? What to do next Instructions From Your Doctor Please contact Dr. Cota' office with any further questions or concerns regarding your injury or surgery. Please take a laxative or stool softener, such as colace or milk of magnesia, as needed for constipation. Elevate operative extremity to reduce swelling; keep bandage clean and dry If any fever, chills, uncontrolled pain, or any other issues you feel may be urgent, do present, consult your physician and/or return to the Emergency Room. You may resume your home medications as prescribed by your PCP You may weightbear as tolerated on operative leg. Keep dressing in place until follow-up.?? Cover with a large plastic bag if showering.?? No swimming, tub baths or soaking leg until terell removed and incisions fully healed. Do not drive while taking??narcotic pain medicine and until instructed otherwise.?? Please take aspirin 81mg twice daily for DVT prophylaxis for at least 2 weeks after surgery or until instructed otherwise at your follow up appointment.? Orders?? today if pain controlled and cleared by therapy. ??Please do not send to [facility] unless cleared by ortho., ??08/14/23 7:59:00 EDT?? You Need to Schedule the Following Appointments Follow Up with??Beata AHUMADA, Maame Chase When:??Within 2 to 3 weeks Why: Please call to??schedule follow up appointment. Where: [address] [place] [address] [facility] [address] [place] [address] [facility] (1) Discharge Medications CHRISTINE MARLOW :1975 Visit Date:08/13/2023 Medications: Please continue your medications until treatment is completed or stopped by your provider. Medications not listed below should be discontinued. Discuss any questions related to medications with your provider. What How Much When Instructions Next Dose New Aspirin (aspirin 81 mg oral delayed release tablet) 1 tab(s) Oral Twice a day Duration: 14 Days Pickup at [place] [address] 08/13 8PM 8New Ibuprofen (ibuprofen 600 mg oral tablet) 600 Milligram Oral 3 times a day as needed for Pain , Mild 08/13 8PM New Tramadol (traMADol 50 mg oral tablet) See instructions 1/ 2-1 By Mouth Every 6-8 hours as needed for moderate to severe pain, As needed for Pain , Moderate ?? Pickup at [place] [address] 08/13 6PM Changed Acetaminophen (Tylenol 325 mg oral tablet) 975 Milligram Oral Every 6 hours Pickup at [place] [address] 08/13 6PM Changed Gabapentin (gabapentin 300 mg oral capsule) 2 capsule Oral 3 times a day 08/13 3PM Unchanged Divalproex Sodium 1,000 Milligram Oral take BID ?? 08/13 8PM Unchanged Emollients, Topical (Minerin topical cream) Topically 4 times a day Unchanged EPINEPHrine (EpiPen 2-Johan 0.3 mg injectable kit) 0.3 Milligram Intramuscular Once Unchanged Lisinopril 5 Milligram Oral Daily 08/14 8AM Unchanged Omeprazole (omeprazole 20 mg oral delayed release tablet) 1 tab(s) Oral Daily 08/14 8AM Unchanged Ondansetron (ondansetron 4 mg oral tablet) 1 tab(s) Oral Every 8 hours as needed for Nausea & Vomiting as needed Unchanged paliperidone (Invega Sustenna 234 mg/ 1.5 mL intramuscular suspension, extended release) 234 Milligram Intramuscular Every 28 days Unchanged Polyethylene Glycol 3350 (MiraLax oral powder for reconstitution) 17 gram Oral Daily dissolve in water before taking ?? Unchanged Prazosin (prazosin 5 mg oral capsule) See instructions 1 capsule By Mouth at bedtime ?? 08/13 8PM Unchanged Tizanidine 5 Milligram Oral 3 times a day 08/13 8PM Pharmacy Information [facility] 3: [address] [place], [place] [id number] [phone] Prescription Given During Visit Acetaminophen (Tylenol 325 mg oral tablet) - 975 mg, By Mouth, Every 6 hours, # 100 tablet, 0 Refills, [facility] [place] [phone]?? Aspirin (aspirin 81 mg oral delayed release tablet) - 1 tablet = 81 mg, By Mouth, 2 times a day, # 28 tablet, 0 Refills, [facility] 3, [address] [place] [id number] [phone]?? Tramadol (traMADol 50 mg oral tablet) - , # 12 tablet, 0 Refills, 1/2-1 By Mouth Every 6-8 hours asneeded for moderate to severe pain, [facility] [address] [id number]?? Laboratory Results Below is a partial list of the most recent Laboratory test results done prior to this discharge. You may have had other tests and procedures not included in this list. Please discuss all test resultswith your provider. Allergies (NKA means No Known Allergies) Bactrim DS??(Throat swelling) Dilaudid??(red face, itchy over wholw body) penicillin??(RASH) Problems Active Problems??(32) Alcohol abuse?? Alopecia?? Back pain?? Bilateral low back pain?? Bipolar disorder?? Bipolar disorder?? Carpal tunnel syndrome?? Chronic back pain?? Chronic bipolar disorder?? Family history of polyp of colon?? Gastric perforation?? Gastric ulcer?? H/O gastric bypass?? Headache?? History of tubal ligation?? Hx of cholecystectomy?? Hypothyroidism?? Iron deficiency anemia?? Low blood pressure?? Mantoux: positive?? Moderate alcohol dependence?? Morbid obesity?? Nicotine dependence?? Obesity?? Opioid abuse?? LAUREN?? Pain of knee region?? PCOS?? Prolapsed lumbar intervertebral disc?? Severe obesity?? UI (urinary incontinence)?? Vitamin D deficiency?? Education Materials Below is the list of Educational Leaflet Providered with your Discharge Instructions. Valuables and Belongings I fully understand and agree that [facility] accepts no responsibility for all my personal property including clothing, toilet articles, radios, jewelry, dentures, hearing aids, rings, money, or any other property that is in my possession or is brought to me after admission. I understand certain valuables may be placed in a hospital safe for a short period of time. I understand that the hospital is not liable for loss or damage due to accident, fire, or other natural occurrence while said property is in the safe. I accept full responsibility for any personal property that I keep with me, and will not hold the hospital responsible in case of loss or disappearance. I acknowledge that i have been encouraged to send valuables and belongings home. ?? Review of Valuable and Belonging List: With patient Disposition of Belongings: Other: to pt belonging room Date for Pt to Sign Valuables/Belongings: 08/13/23 09:41:00 ?? Valuables & Belongings ?? Clothes Electronic devices Jewelry Monetary Items Personal devices Miscellaneous Medications (Valuables) Valuables at Bedside Pants, Shirt, Shoes, Undergarments ? Valuables Sent Home ? Valuables Sent to Security ? Other Discharge Information ? Case Management Discharge Plan?? Discharge Plan?? Discharge Agency Information?? Discharge Level of Care at Discharge: Homehealth/VNA Service Categories #1: Physical Therapy Mode of Transportation Arranged: Other Service Comments #1: You will receive a call to arrange a home visit. ??Please call the agency withany questions. Discharge VNA/Hospice/Home Care: [facility] [phone] ? Pulmonary Rehab Status?? Pulmonary Rehab Discharge Status?? Respiratory Rate: 18 br/min ? Common Emergency Awareness Tips IS IT A STROKE? Act FAST and Check for these signs: FACE Does the face look uneven? ARM Does one arm drift down? SPEECH Does their speech sound strange? TIME Call at any sign of stroke ?? Heart Attack Signs Chest discomfort: Most heart attacks involve discomfort in the center of the chest and lasts more than a few minutes, or goes away and comes back. It can feel like uncomfortable pressure, squeezing, fullness or pain. Discomfort in upper body: Symptoms can include pain or discomfort in one or both arms, back, neck, jaw or stomach. Shortness of breath: With or without discomfort. Other signs: Breaking out in a cold sweat, nausea, or lightheaded. Remember, MINUTES DO MATTER. If you experience any of these heart attack warning signs, call to get immediate medical attention! ?? Smoking can increase your chances of developing chronic health problems and can cause harmful effects to other family members in your house. If you smoke, you are strongly encouraged to quit. Please call [facility] Journalism Online Link at [phone] or [phone] ([phone]) or log in to [email or web address] for referrals to smoking cessation programs. ?? 301 Suicide & Crisis Lifeline is available 11/09 if you or someone you know needs to find a reason to keep living. By calling 452 you'll be connected to a skilled, trained counselor at a crisis center in your area. INPATIENT DISCHARGE INSTRUCTIONS SIGNATURE PAGE KASHMIR CHRISTINE Location:[facility] Registration Date and Time:08/13/2023 08:01 EDT Primary Care Physician: Maddie Kim MD, Attending Physician: Beata AHUMADA, Maame Chase, I CHRISTINE MARLOW, have received the above patient education materials/instructions and have verbalized understanding. If ambulance or transport services are being used I further acknowledge being givena choice of service. ?? If you need to contact me, please call me at this number: . Patient/Warehouse Record Clerk Name: Patient/Warehouse Record Clerk Signature: Relationship to Patient: Witness Name/Signature: Date: Patient Care team information Care Team Personnel Name: Sharmaine Hunt RN Position: [facility] RN Member Role: Primary Care Nurse Name: Cait Rodriguez RN Position: [facility] RN Member Role: Primary Care Nurse Name: Rosa Isela Willis RN Position: [facility] RN Member Role: Primary Care Nurse Name: Dinah Rosas RN Position: [facility] RN Member Role: Primary Care Nurse Name: Sage Porter RN Position: [facility] RN Member Role: Primary Care Nurse Name: Soha James RN Position: [facility] RN Member Role: Primary Care Nurse Name: Yvonne Armstrong RN Position: [facility] Nurse Member Role: Primary Care Nurse Name: Maddie Kim MD Position: [facility] Physician - Primary Care Member Role: PCP Address: Address: [address] [place] [address], [address] [place] [address] Name: Dinah Cid RN Position: [facility] RN Member Role: Primary Care Nurse Name: Saniya Colon RN Position: [facility] RN Member Role: Primary Care Nurse Name: Samreen Cole RN Position: [facility] Glass Vial Bending Conveyor Feeder Member Role: Primary Care Nurse Name: Stella Dent RN Position: [facility] RN Member Role: Primary Care Nurse Name: Marilynn Galvin RN Position: [facility] RN Member Role: Primary Care Nurse Name: Elva Ornelas RN Position: [facility] Glass Vial Bending Conveyor Feeder Member Role: Primary Care Nurse Name: Enriqueta Phan RN Position: [facility] Glass Vial Bending Conveyor Feeder Member Role: Primary Care Nurse Care Team Related Persons Name: RYANNE CLANCY Address: home [address] [place] [address] Name: FARIBA MARLOW Address: home [address] [place] [address] Name: JONES MARLOW Address: home [address] [place] [address] Name: JAMES OGDEN
--- OUTSIDE RECORDS SUMMARY | 2024-01-22 07:51 | XMS_ITS | Continuity of Care Document ---
Author Organization [facility] Address [address] [place] [address]- Care Team Providers Care Waist Presser Name Role Phone Not on Staff, PCP Primary Care Physician Unavail able Encounter [facility] NBR [id number] Date(s): 09/08/21 - 09/10/[address] [address]- Encounter Diagnosis Suicidal ideation(Final) - 09/08/21 Discharge Disposition: A-D/C Home Attending Physician: Thaddeus Spencer MD Admitting Physician: Thaddeus Spencer MD Referring Physician: Not on Staff, Referring MD Allergies, Adverse Reactions, Alerts Substance Reaction [...] 01/09/19 9:44:56 EST, Route to Pharmacy Electronically, NCPDP_ID-[id number], [facility] [address] Start Date: 01/09/19 Status: Ordered divalproex sodium 250 mg oral tablet, extended release See Instructions, 5 tablet ( = 1250 mg ) By Mouth Daily at bedtime - mood stabilizer, # 35 tablet, 3 Refills, Maintenance, 01/09/19 9:52:07 EST, ER Tablet Start Date: 01/09/19 Status: Ordered hydrOXYzine pamoate 50 mg oral capsule See Instructions, PRN Anxiety, take 1 capsule u to three times daily as needed for anxiety, # 21 capsule, 3 Refills, Maintenance, 01/09/19 9:53:20 EST, Capsule Start Date: 01/09/19 Status: Ordered Ketorolac Inj 30 mg, Injection, Intramuscular, Every 6 hours for 4 days, PRN for Other, Pain >04/28, 09/09/21 23:53:00 EDT, Stop date 09/13/21 23:52:00 EDT Start Date: 09/09/21 Stop Date: 09/10/21 Status: Discontinued levothyroxine 0.025 mg oral tablet 1 tablet [...] for pain Start Date: 01/09/19 Status: Ordered Minerin topical cream Topically, 4 times a day, 0 Refills, Maintenance, 09/09/21 22:21:00 EDT, Partial fill upon patient request if the prescription is for a schedule II opioid drug. Start Date: 09/09/21 Status: Ordered multivitamin with minerals Multiple Vitamins [...] EST, Gum Start Date: 01/09/19 Status: Ordered omeprazole 40 mg oral enteric coated capsule 1 capsule = 40 mg, By Mouth, Daily, # 30 capsule, 0 Refills, Maintenance, 09/09/21 22:20:00 EDT, ECCapsule, Partial fill upon patient request if the prescription is for a schedule II opioid drug. Start Date: 09/09/21 Status: Ordered prazosin 1 mg oral capsule 3 mg, Capsule, By Mouth, for nightmares, 09/09/21 21:00:00 EDT Start Date: 09/09/21 Stop Date: 09/09/21 Status: Completed prazosin 1 mg oral capsule See Instructions, take 3 capsules ( = 3 mg ) daily at bedtime for nightmares, # 21 capsule, Refills3, Tot. Refills 3, Maintenance, 01/09/19 9:44:09 EST, Instructions Replace Required Details, Route to Pharmacy Electronically, NCPDP_ID-[id number], [facility] Start Date: 01/09/19 Status: Ordered [...] 01/09/19 9:49:50 EST, Route to Pharmacy Electronically, NCPDP_ID-[id number], [facility] - [address] Start Date: 01/09/19 Status: Ordered Problem List Condition Effective Dates Status Health Status Inform ant Alcohol abuse(Confirmed) Active Chronic bipolar disorder(Confirmed) Active Cocaine abuse(Confirmed) Active H/O gastric bypass(Confirmed) Active Headache(Confirmed) Active History of tubal ligation(Confirmed) Active Hx of cholecystectomy(Confirmed) Active Bilateral low back pain(Confirmed) Active Low blood pressure(Confirmed) Active Nicotine dependence(Confirmed) Active Severe obesity(Confirmed) Active UI (urinary incontinence)(Confirmed) Active Vital Signs Most recent to oldest [Reference Range]: 1 2 3 Height 160 cm (09/09/21 8:28 PM) 160 cm (09/09/21 9:22 AM) 160 cm (09/09/21 12:44 AM) Weight 107.5 kg (09/09/21 8:28 PM) 107.5 kg (09/09/21 9:22 AM) 107.5 kg (09/09/21 12:44 AM) Oxygen Saturation [94-100 %] 97 % (09/10/21 5:01 AM) 98 % (09/09/21 10:14 PM) 97 % (09/09/21 8:28 PM) Pulse Rate [55-90 bpm] 77 bpm (09/10/21 5:01 AM) 65 bpm (09/09/21 10:14 PM) 64 bpm (09/09/21 8:28 PM) Body Mass Index [18.5-24.99] 41.99 *>HHI* (09/09/21 8:28 PM) 41.99 *>HHI* (09/09/21 9:22 AM) 41.99 *>HHI* (09/09/21 12:44 AM) Blood Pressure [90-138/55-84 mm Hg] 137/97mm Hg (09/10/21 5:01 AM) 122/85mm Hg (09/09/21 10:14 PM) 120/80mm Hg (09/09/21 8:28 PM) Respiratory Rate [16-30 br/min] 16 br/min (09/10/21 5:54 AM) 16 br/min (09/10/21 5:01 AM) 16 br/min (09/10/21 12:03 AM) Temperature [96.8-100.4 DegF] 97.7 DegF (09/09/21 8:28 PM) 98.3 DegF (09/09/21 9:22 AM) 98.1 DegF (09/08/21 3:24 PM) Liters per Minute 0 L/min (09/09/21 8:28 PM) Mode of Delivery (Oxygen) Room air (09/10/21 5:01 AM) Room air (09/09/21 10:14 PM) Room air (09/09/21 8:28 PM) Blood pressure sites Arm, left (09/10/21 5:01 AM) Arm, right (09/09/21 10:14 PM) Arm, left (09/09/21 8:28 PM) Temperature Route Oral (09/09/21 8:28 PM) Oral (09/09/21 9:22 AM) Oral (09/08/21 3:24 PM) Dry Weight 107.5 kg (09/09/21 8:28 PM) 107.5 kg (09/09/21 9:22 AM) 107.5 kg (09/09/21 12:44 AM) Weight Obtained Via Patient/family state d (09/08/21 3:19 PM) Social History Social History Type Response Smoking Status 10 or more cigarette s (1/2 pack or more)/day in last 30 days entered on: 09/08/21 Sex
--- OUTSIDE RECORDS SUMMARY | 2024-01-22 07:51 | XMS_ITS | Continuity of Care Document ---
Author Organization [facility] Address [address], [address] [place] [address]- Care Team Providers Care Oracle Data Warehouse Developer Name Role Phone Julio AHUMADA, Maddie Hi Primary Care Physician Encounter [facility] Date(s): 01/26/22 - 02/25/22 [facility] [address] [place] [address]- Allergies, Adverse Reactions, Alerts Substance Reaction Severity [...] 03/09/22 12:58:00 EST, 02/01/22 12:57:00 EST, Patch, [id number], Partial fill upon patient [...] Team Personnel Name: Sharmaine Hunt RN Position: [facility] RN Member Role: Primary Care Nurse Name: Cait Rodriguez RN Position: [facility] RN Member Role: Primary Care Nurse Name: Rosa Isela Willis RN Position: [facility] SN RN Member Role: Primary Care Nurse Name: Dinah Rosas RN Position: [facility] RN Member Role: Primary Care Nurse Name: Soha James RN Position: [facility] RN Member Role: Primary Care Nurse Name: Yvonne Armstrong RN Position: [facility] AMB Nurse Member Role: Primary Care Nurse Name: Maddie Kim MD Position: [facility] Physician (General Medicine) Member Role: PCP Address: Address: [address] [place] [address] Name: Dinah Cid RN Position: [facility] ED RN W/OE and Tasks Member Role: Primary Care Nurse Name: Samreen Cole RN Position: [facility] Mechanical Drawing Teacher Member Role: Primary Care Nurse Name: Cornelio Fofana RN Position: [facility] RN Supv Member Role: Primary Care Nurse Name: Lesly Lamb RN Position: [facility] RN Member Role: Primary Care Nurse Name: Stella Dent RN Position: [facility] RN Member Role: Primary Care Nurse Name: Marilynn Galvin RN Position: [facility] RN Member Role: Primary Care Nurse Name: Elva Ornelas RN Position: [facility] Mechanical Drawing Teacher Member Role: Primary Care Nurse Name: Enriqueta Phan RN Position: [facility] Mechanical Drawing Teacher Member Role: Primary Care Nurse Care Team Related Persons Name: CLANCYRYANNE BYRD Address: home [address] [place] [address] Name: FARIBA MARLOW Address: [address] [place] [address] Name: KASHMIR EMARI Address: [address] [place] [address] Name: JAMES OGDEN
--- OUTSIDE RECORDS SUMMARY | 2024-01-22 07:51 | XMS_ITS | Continuity of Care Document ---
Author Organization [facility] Address [address] [place] [address]- Care Team Providers Care Wildlife Biostation Research Ecologist Name Role Phone Julio AHUMADA, Maddie Hi Primary Care Physician Encounter [facility] Date(s): 06/11/23 - 06/12/[address] [address]- Encounter Diagnosis Incontinence(Final) - 06/11/23 Discharge Disposition: A-D/C Home Attending Physician: Vic Oro MD Admitting Physician: Vic Oro MD Referring Physician: Not on Staff, Referring [...] 0 Refills, Soft Stop, 04/17/23 16:24:00 EST, [id number], Partial fill upon patient request if [...] 06/30/22 14:02:00 EDT, REC Powder, [facility], Partial fill upon patient request if [...] Maintenance, 06/30/22 14:02:00 EDT, Capsule, [facility], Partial fill upon patient [...] Active Vitamin D deficiency Confirmed 08/23/09 Active Vital Signs Most recent to oldest [Reference Range]: 1 2 3 Height 158 cm (06/12/23 8:30 AM) 158 cm (06/12/23 8:11 AM) 158 cm (06/11/23 2:53 PM) Weight 105.3 kg (06/12/23 8:30 AM) 105.3 kg (06/12/23 8:11 AM) 105.3 kg (06/11/23 2:53 PM) Oxygen Saturation [94-100 %] 99 % (06/12/23 8:30 AM) 97 % (06/12/23 2:00 AM) 98 % (06/11/23 10:00 PM) Pulse Rate [55-90 bpm] 96 bpm *H* (06/12/23 8:30 AM) 83 bpm (06/12/23 2:00 AM) 78 bpm (06/11/23 10:00 PM) Body Mass Index [18.5-24.99 kg/m2] 42.18 kg/m2 *>HHI* (06/12/23 8:30 AM) 42.18 kg/m2 *>HHI* (06/12/23 8:11 AM) 42.18 kg/m2 *>HHI* (06/11/23 2:53 PM) Blood Pressure [90-138/55-84 mm Hg] 146/100mm Hg *H* (06/12/23 8:11 AM) 152/108mm Hg *H* (06/12/23 2:00 AM) 151/108mm Hg *H* (06/11/23 10:00 PM) Respiratory Rate [16-30 br/min] 20 br/min (06/12/23 8:30 AM) 20 br/min (06/12/23 2:00 AM) 18 br/min (06/11/23 6:57 PM) Temperature [96.8-100.4 DegF] 98.3 DegF (06/12/23 8:30 AM) 98.0 DegF (06/11/23 6:57 PM) 98.8 DegF (06/11/23 12:08 PM) Mode of Delivery (Oxygen) Room air (06/12/23 8:30 AM) Room air (06/12/23 2:00 AM) Room air (06/11/23 10:00 PM) Blood pressure sites Arm, left (06/12/23 8:11 AM) Arm, left (06/12/23 2:00 AM) Arm, left (06/11/23 10:00 PM) Temperature Route Oral (06/12/23 8:30 AM) Oral (06/11/23 6:57 PM) Oral (06/11/23 12:08 PM) Dry Weight 105.3 kg (06/12/23 8:30 AM) 105.3 kg (06/12/23 8:11 AM) 105.3 kg (06/11/23 2:53 PM) Weight Obtained Via Standing scale (06/11/23 12:08 PM) Dry Weight Obtained Via Standing scale (06/11/23 12:08 PM) Social History Social History Type Response [...] Safety Implantable Status Assigning Authority Unknown Unknown [id number] Unknown 06/04/25 Unknown Unknown Active Unknown Patient Care team information Care Team Personnel Name: Sharmaine Hunt RN Position: [facility] RN Member Role: Primary Care Nurse Name: Cait Rodriguez RN Position: [facility] RN Member Role: Primary Care Nurse Name: Rosa Isela Willis RN Position: [facility] SN RN Member Role: Primary Care Nurse Name: Dinah Rosas RN Position: [facility] RN Member Role: Primary Care Nurse Name: Sage Porter RN Position: [facility] RN Member Role: Primary Care Nurse Name: Soha James RN Position: [facility] RN Member Role: Primary Care Nurse Name: Yvonne Armstrong RN Position: [facility] AMB Nurse Member Role: Primary Care Nurse Name: Maddie Kim MD Position: [facility] Physician - Primary Care Member Role: PCP Address: Address: [address] [place] [address], [address] Name: Dinah Cid RN Position: [facility] RN Member Role: Primary Care Nurse Name: Samreen Cole RN Position: [facility] Railroad Operating Engineer Member Role: Primary Care Nurse Name: Stella Dent RN Position: [facility] RN Member Role: Primary Care Nurse Name: Marilynn Galvin RN Position: [facility] RN Member Role: Primary Care Nurse Name: Elva Ornelas RN Position: [facility] Railroad Operating Engineer Member Role: Primary Care Nurse Name: Sylvester KASPER, Enriqueta Position: [facility] Railroad Operating Engineer Member Role: Primary Care Nurse Care Team Related Persons Name: CLANCYRYANNE Address: home [address] [address] Name: FARIBA MARLOW Address: [address] [place] [address] Name: JONES MARLOW Address: home [address] [place] [id number] Name: JAMES OGDEN
--- OUTSIDE RECORDS SUMMARY | 2024-01-22 07:51 | XMS_ITS | Continuity of Care Document ---
Author Organization [id number] Address [address] [place] [address], [address] [address]- Care Team Providers Care Lockmaker Name Role Phone Julio AHUMADA, Maddie Hi Primary Care Physician [phone] [id number] Date(s): 07/31/22 - 08/30/22 [facility] Jerzymichael [id number] [facility] [address] [facility], [address] [place], [place] [address] Allergies, Adverse Reactions, Alerts Substance Reaction Severity [...] 0 Refills, Maintenance, 03/10/22 9:59:00 EST, Capsule, [facility], Partial fill upon patient [...] Refills, Maintenance, 06/30/22 14:02:00 EDT, REC Powder, [facility], Partial fill upon patient request if [...] 06/30/22 14:02:00 EDT, Route to Pharmacy Electronically, [facility], Partialfill upon patient request [...] 0 Refills, Maintenance, 06/30/22 14:02:00 EDT, Capsule, [facility], Partial fill upon patient [...] Safety Implantable Status Assigning Authority Unknown Unknown [id number] Unknown 06/04/25 Unknown Unknown Active Unknown Patient Care team information Care Team Personnel Name: Sharmaine Hunt RN Position: [facility] RN Member Role: Primary Care Nurse Name: Cait Rodriguez RN Position: [facility] RN Member Role: Primary Care Nurse Name: Rosa Isela Willis RN Position: [facility] SN RN Member Role: Primary Care Nurse Name: Dinah Rosas RN Position: [facility] RN Member Role: Primary Care Nurse Name: Sage Porter RN Position: [facility] RN Member Role: Primary Care Nurse Name: Soha James RN Position: [facility] RN Member Role: Primary Care Nurse Name: Yvonne Armstrong RN Position: [facility] AMB Nurse Member Role: Primary Care Nurse Name: Maddie Kim MD Position: [facility] Physician - Primary Care Member Role: PCP Address: Address: [address] [place] [address], [address] [place] [address] Name: Dinah Cid RN Position: [facility] RN Member Role: Primary Care Nurse Name: Samreen Cole RN Position: [facility] [employer] Member Role: Primary Care Nurse Name: Cornelio Fofana RN Position: [facility] RN Yadi Member Role: Primary Care Nurse Name: Stella Dent RN Position: [facility] RN Member Role: Primary Care Nurse Name: Marilynn Galvin RN Position: [facility] RN Member Role: Primary Care Nurse Name: Elva Ornelas RN Position: [facility] [employer] Member Role: Primary Care Nurse Name: Enriqueta Phan RN Position: [facility] [employer] Member Role: Primary Care Nurse Care Team Related Persons Name: RYANNE CLANCY Address: home [address] [address] Name: FARIBA MARLOW Address: [address] [address] Name: JONES MARLOW Address: [address] [address] Name: JAMES OGDEN
--- OUTSIDE RECORDS SUMMARY | 2024-01-22 07:51 | XMS_ITS | Continuity of Care Document ---
Author Organization [facility] ter Address [address] [place] [id number]- Care Team Providers Care Site Foreman Name Role Phone Julio AHUMADA, Maddie Hi Primary Care Physician Encounter [facility] Date(s): 03/10/22 - 03/10/[address] [address]- Discharge Disposition: A-D/C Home Attending Physician: Sage Walker MD Admitting Physician: Sage Walker MD Referring Physician: Sage Walker MD Allergies, Adverse Reactions, Alerts Substance Reaction [...] 0 Refills, Maintenance, 03/10/22 9:59:00 EST, Tablet, [facility], Partial fill upon patient request if the prescription is for aschedule II opioid drug., 160, cm, 03/10/22 6:50:00... Start Date: 03/10/22 Stop Date: 04/09/22 Status: Ordered celecoxib 200 mg oral capsule 1 capsule = 200 mg, By Mouth, Daily, # 30 capsule, 0 Refills, Maintenance, 03/10/22 9:59:00 EST, Capsule, [facility], Partial fill upon patient [...] capsule, 0 Refills, Maintenance, 03/10/22 9:59:00EST, Capsule, [facility], Partial fill upon patient request if the prescription is for a schedule II opioid drug., 160, cm, 03/10/22 6:50... Start Date: 03/10/22 Status: Ordered gabapentin 300 mg oral capsule 300 mg, Capsule, By Mouth, 03/10/22 15:00:00 EST Start Date: 03/10/22 Stop Date: 03/10/22 Status: Completed gabapentin 300 mg oral capsule 300 mg, [...] Replace Required Details, Route to Pharmacy Electronically, [facility] Start Date: 03/10/22 Stop Date: 03/17/22 [...] 03/17/22 10:00:00 EST, 03/10/22 10:00:00 EST, Tablet, [facility], Partial fill upon patient [...] Active Vitamin D deficiency Confirmed 08/23/09 Active Results Radiology Reports * Exam Date Time Procedure Performing Provider Status 03/10/22 1:03 PM Knee 1 or 2 Views Right Howie Ortega; Danya (Verified) Notes: (Knee 1 or 2 Views Right) Reason For Exam: Postop RESULT: Knee 1 or 2 Views Right Knee 1 or 2 Views Right, 2 views INDICATION/CLINICAL QUESTION: Reason: Postop; Clinical Question(s): Other:; Implant Position; Special Instructions: Do today for discharge, No flexed knee in the lateral position. Keep leg straight; 2 Views COMPARISON: 10/13/2018 FINDINGS: There are post surgical changes from right total knee arthroplasty in standard alignment without radiographic evidence of immediate complication. Overlying soft tissue swelling and soft tissue gas iscompatible with the immediate postoperative state. There is no unexpected radiopaque foreign body. IMPRESSION: Status post right total knee arthroplasty in standard alignment without evidence of immediate complication. WSN: [id number] Ordering Physician: Andrew James Dictated By: Juan Ray MD Dictated Date/Time: 03/10/22 1:04 pm Reviewed By: Juan Ray MD Signed By: Juan Ray MD Signed Date/Time: 03/10/22 1:04 pm Transcribed By: VASU Transcribed Date/Time: 03/10/22 1:03 pm Vital Signs Most recent to oldest [Reference Range]: 1 2 3 Height 160 cm (03/10/22 3:00 PM) 160 cm (03/10/22 1:55 PM) 160 cm (03/10/22 6:07 AM) Weight 106.7 kg (03/10/22 6:07 AM) 106.7 kg (03/10/22 5:15 AM) Oxygen Saturation [94-100 %] 97 % (03/10/22 12:41 PM) 96 % (03/10/22 11:45 AM) 95 % (03/10/22 11:30 AM) Pulse Rate [55-90 bpm] 75 bpm (03/10/22 6:07 AM) 92 bpm *H* (03/10/22 5:15 AM) Body Mass Index [18.5-24.99 kg/m2] 41.68 kg/m2 *>HHI* (03/10/22 6:07 AM) 41.68 kg/m2 *>HHI* (03/10/22 5:15 AM) Blood Pressure [90-138/55-84 mm Hg] 144/77mm Hg *H* (03/10/22 12:30 PM) 129/92mm Hg (03/10/22 11:45 AM) 99/82mm Hg (03/10/22 11:30 AM) Respiratory Rate [16-30 br/min] 14 br/min *L* (03/10/22 1:20 PM) 14 br/min *L* (03/10/22 11:45 AM) 21 br/min (03/10/22 11:30 AM) Temperature [96.8-100.4 DegF] 97.6 DegF (03/10/22 12:41 PM) 97.5 DegF (03/10/22 11:30 AM) 98.1 DegF (03/10/22 9:30 AM) Liters per Minute 2 L/min (03/10/22 10:45 AM) 5 L/min (03/10/22 9:45 AM) 5 L/min (03/10/22 9:30 AM) Mode of Delivery (Oxygen) Room air (03/10/22 4:45 PM) Room air (03/10/22 12:41 PM) Room air (03/10/22 11:45 AM) Blood pressure sites Arm, right (03/10/22 12:41 PM) Arm, right (03/10/22 10:15 AM) Arm, right (03/10/22 10:00 AM) Temperature Route Temporal (03/10/22 12:41 PM) Temporal (03/10/22 11:30 AM) Temporal (03/10/22 6:07 AM) Dry Weight 106.7 kg (03/10/22 5:15 AM) Social History Social History Type Response Smoking Status 10 or more cigarette s (1/2 pack or more)/day in last 30 days; Other: smoking for 32 yrs.; entered on: 02/01/22 Sex History and physical note * Event Display: History and Physical Hospital Authored Date: [id number] SURGICAL HISTORY AND PHYSICAL DATE: 03/10/2022 PRIMARY DIAGNOSIS: Osteoarthritis of bilateral knees, right greater than left. REASON FOR ADMISSION: The patient is being admitted for a right total knee arthroplasty by Dr. Walker on 03/10/2022. HISTORY OF PRESENT ILLNESS: Ms. Marlow is a very pleasant 46-year-old female with complaints of right greater than left sided knee pain. She has had this knee pain for over 5 years. Cortisone injections have given her no significant relief. Gel injections have only helped her left knee. Celebrex gives her some relief. Pain is a 10/10 on a bad day, she reports pain at rest and with significant limitations with activities including difficulty with stairs and getting out of a chair. She uses a cane for long walks and she is unable to kneel or squat. The patient is now ready to pursue a right total knee arthroplasty by Dr. Walker on 03/10/2022. PAST MEDICAL HISTORY: 1. Osteoarthritis of the right greater than left knee. 2. History of ETOH abuse. She reports she is not currently drinking. Her last drink was over a month ago. 3. Chronic bipolar. The patient is stable, currently on Depakote and monthly injections of Invega. She sees her psychiatrist every 3 months. Denies any recent suicidal ideations, last documented one was in 08/2021. 4. 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 5. Urinary incontinence. 6. Nicotine dependence where the patient smokes approximately a pack a day. 7. Hypothyroidism. 8. Anemia. 9. History of LAUREN, where the patient reports she lost a bunch of weight after having a gastric bypass. She no longer uses a CPAP, but recently has gained some weight back and noticed snoring. 10. Obesity with a BMI of 40.3. 11. History of overdose in the past. PAST SURGICAL HISTORY: 1. Gastric bypass followed by a bowel obstruction in 2018. 2. Tubal ligation. 3. Cholecystectomy. 4. Carpal tunnel. 5. Ankle surgery. 6. Trigger finger surgery. MEDICATIONS: Current list of medications includes, 1. Celebrex 200 mg daily. 2. Depakote 1000 mg b.i.d. 3. Invega 234 mg/1.5 mL monthly, her last injection was on the . 4. Levothyroxine 25 mcg daily. 5. Lisinopril 5 mg daily in the a.m. 6. Omeprazole 20 mg daily. 7. Gabapentin 300 mg t.i.d. ALLERGIES: 1. BACTRIM causes throat swelling. However, she tolerated Celebrex just fine. 2. DILAUDID causes a red face, itchy all over in the IV form. She can tolerate p.o. 3. PENICILLIN causes a rash. 4. HYDROCODONE causes upset stomach. SOCIAL HISTORY: The patient reports she is not drinking, has not had any alcohol in over a month. She smokes a pack per day. She has a history of cocaine abuse. No recent use since 2018. She lives with her daughter who works nights and currently has a [employer] hours from [employer]. PHYSICIANS: The patient's primary care physician is Dr. Maddie Kim. REVIEW OF SYSTEMS: The patient denies headache, dizziness or syncope. Denies fever, chills, unexplained weight loss or fatigue. Denies rash or lesions. Denies rhinorrhea, earache, sore throat or swollen glands. Denies cough, shortness of breath or wheezing. Denies chest pain, pressure, palpitationsor edema. Denies nausea, vomiting, diarrhea, constipation, or abdominal pain. Denies dysuria, urinary urgency or frequency. Denies calf pain or history of blood clots to the legs. The patient reportsbaseline right lower extremity numbness and tingling. Denies any history of blood clots or any active dental issues at this time. PHYSICAL EXAMINATION: VITAL SIGNS: Height is 63 inches tall, weight is 241 pounds, temperature is 97.1, blood pressure 140/80 and pulse is 90. GENERAL: Alert and oriented. Normal insight, affect, and grooming. SKIN: Intact without rash or lesions. Nails without clubbing or cyanosis. HEENT: Normocephalic. Conjunctivae pink. Sclerae are anicteric. NECK: Supple. Trachea midline. No lymphadenopathy. CHEST: Lungs are clear to auscultation bilaterally and breathing is unlabored. CARDIOVASCULAR: Heart has a regular rate and rhythm with a normal S1, S2. No murmurs, rubs or gallops appreciated. No JVD. Carotid pulse without bruits. ABDOMEN: Obese, soft, nontender, with normal bowel sounds. No hepatosplenomegaly or masses noted. No bruits appreciated. EXTREMITIES: Lower extremities, the patient has a negative straight leg raise test bilaterally. Bilateral hips have full range of motion without pain. No trochanteric tenderness. Right knee with a varus alignment. Bilateral hips with full range of motion with no trochanteric tenderness. Right knee with a varus alignment, range of motion is 3-120, severe tenderness and crepitus medially. No instability. Mild effusion. Left knee with a neutral alignment. Range of motion is 0-120. Moderate tenderness and crepitus, no instability or significant effusion. Antalgic gait pattern favoring the right side. Full strength and sensation distally. Calves are supple, nontender. Ankle motion is satisfactory. Pedal pulses palpable bilaterally and skin about the feet is intact. PREOPERATIVE DIAGNOSTIC DATA: Orthopedic x-rays demonstrate end-stage osteoarthritis of the right greater than left knee. There is [id number] articulation, subchondral sclerosis and osteophyte formation. EKG reads normal sinus rhythm at 65 beats per minute. LABORATORY DATA: CBC, PTT, INR, BUN, creatinine and electrolytes all within normal limits. Hemoglobin A1c is 4.5. ASSESSMENT AND PLAN: The patient has advanced osteoarthritis of bilateral knees, right greater thanleft and is now scheduled for right total knee arthroplasty by Dr. Walker on 03/10/2022. The patient was seen by the med consult program, who considered her a low pulmonary and cardiovascular risk for surgery. She will receive IV TXA and be placed on Eliquis 2.5 mg twice a day for 30 days for DVT prophylaxis due to her history of ulcers and gastric bypass. We will monitor her on CIWA as she has ahistory of ETOH abuse. We will monitor her on end tidal CO2 if she stays overnight. She wishes not to receive Dilaudid IV. She has been counseled. The patient wishes to be discharged home on the sameday with services. She has been counseled regarding the risks and benefits of the proposed procedure. Her questions have been answered and she acknowledges understanding. The patient wishes to proceed with surgery and has signed the consents. CONTACTS: Her daughter, Luis Alfredo, with a phone number of [phone]. Prescriptions given at the time of the H and P include none. She will require prescriptions for Eliquis, Colace, Celebrex, and pain medicine upon discharge from the hospital. Dictated by: Maya Tucker N.P. Signing Clinician: Sage Walker M.D. Dictated: 02/27/2022 09:17:51 Transcribed: 04:00:03 AM Transcribed by: JONG DocID: [id number] PRELIMINARY REPORT UNLESS MANUALLY/ELECTRONICALLY SIGNED Note * Evelia Clinton RN: PERFORM Event Display: Discharge/Transfer Note Hospital Authored Date: [id number] Nursing Discharge Note Entered On: 03/10/2022 17:05 EST Performed On: 03/10/2022 16:45 EST by Evelia Clinton RN Nursing Discharge Note 2 Discharge Time : 03/10/2022 16:45 EST Discharge Level of Care at Discharge : Homehealth/VNA Discharge VNA/Hospice/Home Care(v001) : [facility] Patient Left Unit Via : Wheelchair Patient Accompanied Off Unit with : Responsible adult DC Instructions Provided & Signed by Pt : Yes Patient Understands D/C Instructions : Yes Verbalized Understanding of D/C Plan By : Family, Patient Patient Instructions Discharge Signed : Yes Did Pt have Specialty Bed or Wound Vac : No Mary Beth KASPER, Evelia - 03/10/2022 17:04 EST * Mati Trinh NP: PERFORM, SIGN, VERIFY Event Display: Discharge/Transfer Note Hospital Authored Date: [id number] Patient: CHRISTINE MARLOW Age: 46 years Sex: Female : 1975 Associated Diagnoses: None Author: Mati Trinh NP Discharge Summary Admission Date: 03/10/2022 Discharge Date: 03/10/2022 Admitting Diagnosis: Right knee osteoarthritis Discharge Diagnosis: Right knee osteoarthritis Final Diagnosis: Right knee osteoarthritis Procedure: Right total knee arthroplasty Surgeon: Dr. Sage Walker Past Medical History: 1. Osteoarthritis of the right greater than left knee. 2. History of ETOH abuse. She reports she is not currently drinking. Her last drink was over a month ago. 3. Chronic bipolar. The patient is stable, currently on Depakote and monthly injections of Invega. She sees her psychiatrist every 3 months. Denies any recent suicidal ideations, last documented one was in 08/2021. 4. 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 5. Urinary incontinence. 6. Nicotine dependence where the patient smokes approximately a pack a day. 7. Hypothyroidism. 8. Anemia. 9. History of LAUREN, where the patient reports she lost a bunch of weight after having a gastric bypass. She no longer uses a CPAP, but recently has gained some weight back and noticed snoring. 10. Obesity with a BMI of 40.3. 11. History of overdose in the past. Orthopedics: The patient is status post right knee arthroplasty. It is anticipated that she will bedischarged home today pending PT, OT clearance. The patient is doing well from a surgical standpoint. Her incision is healing well. Neurovascular status is intact. Calves are supple and nontender. The patient is weight bearing as tolerated. Making good progress with Physical Therapy and Occupational therapy. Supervision with ambulation walking 30 feet, ambulating with a walker. Pain is well controlled on her current regimen, Acetaminophen 650 mg every 6 hours, Celebrex, tramadol and oxycodone 5-10 mg every 4 hours as needed . Patient is tolerating this well. She will be sent home with a prescr iption for this medication. Prescription: Tramadol 50 mg tablets, take 1 to 2 tablets every 6 hours as needed for mild pain, 7 days, #56 Oxycodone 5 mg tablet, 1-2 tablets every 4 hours as needed for severe pain, 7 days # 84 Hospital course: Relatively uneventful medically. Patient is voiding spontaneously. + bowel sounds. all morning bowel medications will be given in anticipation of a BM prior to discharge. No other issues. No calf tenderness. Current Medication List: Acetaminophen: 650 mg, By Mouth, Every 6 hours, May take OTC not to exceed 3000 mg/day apixaban: 2.5 mg = 1 tablet, By Mouth, 2 times a day Celecoxib: 200 mg = 1 capsule, By Mouth, Daily Divalproex Sodium: 1,000 mg, By Mouth, take BID Docusate: 100 mg = 1 capsule, By Mouth, 2 times a day Emollients, Topical: Topically, 4 times a day Gabapentin: 300 mg = 1 capsule, By Mouth, 3 times a day Levothyroxine: 25 mcg = 1 tablet, By Mouth, Daily, for hypothyroidism Lisinopril: 5 mg, By Mouth, Daily Omeprazole: 20 mg = 1 tablet, By Mouth, Daily Oxycodone: See Instructions, PRN (Pain , Severe), 1-2 tablet By Mouth Every 4 hours paliperidone: 234 mg, Intramuscular, Every 28 days Polyethylene Glycol 3350: 17 Gm = 1 pack/packet, By Mouth, Daily, PRN (Constipation) Senna: 8.6 mg = 1 tablet, By Mouth, Daily at bedtime, PRN (as needed for constipation) Tramadol: See Instructions, PRN (Pain , Mild), 1-2 tablet By Mouth Every 6 hours not to exceed 400 mg/day Allergies (Active and Proposed Allergies Only) Bactrim DS (Severity: Unknown severity, Onset: Unknown) Reactions: Throat swelling penicillin (Severity: Unknown severity, Onset: Unknown) Reactions: RASH Dilaudid (Severity: Unknown severity, Onset: Unknown) Reactions: red face, itchy over wholw body DVT prophylaxis Apixaban 2.5 mg po bid x 30 days Disposition: Anticipates being discharged today to home. Follow up at [facility] on 03/24/2022 at 9:45 am, patient is aware of this. The patient has an Aquacel dressing in place. She may shower with it and the dressing can be discontinued on POD 14. Discharge Plan Discharge Disposition Discharge: home with VNA. Home Health Face to Face I certify that this patient is under my care and that I or an allowed non- physician practitioner working with me, had a [id number] encounter with the patient on this date: 03/10/2022. The encounter with the patient was in whole, or in part, for the following medical condition, whichis the primary reason for home health care: Osteoarthritis of right knee. Physical Therapy: Functional mobility training, Home exercise program to strengthen, increase ROM, Falls prevention training. Homebound due to: Inability to leave home without assistance/supervision, Inability to ambulate without assistance, Pain, decreased strength, and endurance, Unsteady gait, Impaired transfers, Inability to negotiate stairs. Physician Signature: Denise AHUMADA, Sage Rojas * Akshat KASPER, Katia: PERFORM, MODIFY Event Display: Patient Education/Instruction Authored Date: [id number] Inpatient Adult Discharge Instructions [address] [address] Name: CHRISTINE MARLOW : 1975 Visit: 03/10/2022 05:13:00 Current Date: 03/10/2022 13:26 Account: [id number] Inpatient Adult Discharge Instructions We would like [...] and their families. Surveys are administered by [employer] ?? If further treatment with your primary care physician or another doctor is recommended, it is important for you to keep the appointment. Call your primary care physician or return to the Emergency Department immediately if your condition worsens, fails to improve, or new symptoms develop. If you need to find a doctor, you can call [facility] Link for a referral at [phone] or toll free at [phone]) or log in to [email or web address].. ?? You can view and manage your care through the patient portal or by using a health care nehemias of your choosing. [employer] is a website that allows you to securely view your medical information including your hospital discharge summary, office visit summaries, medications and follow-up visits. You can also request appointments, renew medications, and request access to your medical information using a health care nehemias of your choosing, or just ask a question. You can enroll at [email or web address] or register during your next office visit. You have been discharged from [facility], Patient Care Unit: [facility]. If you have any questions regarding these instructions after you leave, please call us and we will be happy to assist you. [facility] Your Care Team Attending Physician Denise AHUMADA, Sage Johnson Discharging Providers Gayathri BORGES, Mati Reason for Admission OA RIGHT KNEE 23OVN Your Diagnosis Osteoarthritis of right knee Tests Performed Below is a partial list of the tests performed during your hospitalization. You may have had other tests and procedures not included in this list. Please discuss all test results with your provider. XR Knee 1 or 2 Views Right Primary Care Provider Maddie Kim MD Advance Directive Health Care Proxy on File No No qualifying data available. Discharge Vitals Temperature: 97.6 DegF Height: 160 cm Pulse Rate: 75 bpm Weight: 106.7 kg Respiratory Rate:??14 br/min??Low Body Mass Index:??41.68 kg/m2??Critical Systolic Blood Pressure:??144 mm Hg??High Body surface area: 2.18 Diastolic Blood Pressure: 77 mm Hg ?? Oxygen Saturation: 97 % ?? Studies Pending All tests and labs ordered during this hospital stay have been completed unless listed below. Please discuss all pending results with your provider listed above in these instructions. ?? BUN CBC Creatinine Electrolytes What to do next Instructions From Your Doctor Discharge Orders Instructions from your Care Team See discharge instruction sheet Knee Replacement You Need to Schedule the Following Appointments Follow Up with??Sage Walker When?? Why: Call for follow up appt Where: [address] [place] [address]- [facility] (1) Follow Up with??Maddie Kim When??In 0 days Discharge Medications CHRISTINE MARLOW :1975 Visit Date:03/10/2022 Medications: Please continue your medications until treatment is completed or stopped by your provider. Medications not listed below should be discontinued. Discuss any questions related to medications with your provider. What How Much When Instructions Next Dose New Acetaminophen (acetaminophen 325 mg oral tablet) 650 Milligram Oral Every 6 hours May take OTC not to exceed 3000 mg/ day ?? 7:30pm New apixaban (apixaban 2.5 mg oral tablet) 1 tab(s) Oral Twice a day Duration: 30 Days Pickup at [place] [address] Start tomorrow morning 03/11/22 New Docusate (docusate sodium 100 mg oral capsule) 1 capsule Oral Twice a day Pickup at [place] [address] tonight New Oxycodone (oxyCODONE 5 mg oral tablet) See instructions 1-2 tablet By Mouth Every 4 hours ?? Pickup at [place] [address] 3pm New Polyethylene Glycol 3350 (MiraLax Powder) 17 gram Oral Daily as needed for Constipation 03/11/22?? AM New Senna (senna 187 mg oral tablet) 1 tab(s) Oral Daily at Bedtime as needed for as needed for constipation as needed New Tramadol (traMADol 50 mg oral tablet) See instructions 1-2 tablet By Mouth Every 6 hours not to exceed 400 mg/ day ?? Pickup at [place] [address] Changed Celecoxib (celecoxib 200 mg oral capsule) 1 capsule Oral Daily Pickup at [place] [address] 03/11/22?? AM Unchanged Divalproex Sodium 1,000 Milligram Oral take BID ?? tonight Unchanged Emollients, Topical (Minerin topical cream) Topically 4 times a day Unchanged Gabapentin (gabapentin 300 mg oral capsule) 1 capsule Oral 3 times a day 9:30pm Unchanged Levothyroxine (levothyroxine 0.025 mg oral tablet) 1 tab(s) Oral Daily for hypothyroidism ?? 03/11/22?? AM Unchanged Lisinopril 5 Milligram Oral Daily 03/11/22?? AM Unchanged Omeprazole (omeprazole 20 mg oral delayed release tablet) 1 tab(s) Oral Daily 03/11/22? AM Unchanged paliperidone (Invega Sustenna 234 mg/ 1.5 mL intramuscular suspension, extended release) 234 Milligram Intramuscular Every 28 days Pharmacy Information [facility]: [address], [place] [id number] [phone] Test Results Below is a partial list of [...] Educational Leaflet Providered with your Discharge Instructions. Surgery Medical Daystay Surgical Overnight Discharge Instructions?? Valuables and Belongings I fully understand and agree that [facility] accepts no responsibility for all my [...] of Valuable and Belonging List: With patient Possessions released to: Earring in left ear patient unable to remove, no other valuables and belongings in pre-op, earring to OR with pt Date for Pt to Sign Valuables/Belongings: 03/10/22 06:50:00 ?? Valuables & Belongings ?? Clothes Electronic devices Jewelry Monetary Items Personal devices Miscellaneous Medications (Valuables) Valuables at Bedside Pants, Shirt, Shoes, Undergarments, Other: boots Cell phone, Other: dynamicist Earrings Credit cards, Purse, Wallet ? Valuables Sent Home ? Valuables Sent to Security ? Other Discharge Information ? Case Management Discharge Plan?? Discharge Plan?? Discharge Agency Information?? Discharge Level of Care at Discharge: Homehealth/VNA Name of Agency #1: [facility] Discharge Rx Program: Discharge Prescription Program Service Categories #1: Physical Therapy Discharge VNA/Hospice/Home Care: [facility] Comments #1: The VNA will call you the day after you are discharged to set up a visit time.If you do not hear from them, please call them at [facility] ?? Pulmonary Rehab Status?? Pulmonary Rehab Discharge Status?? Respiratory Rate:??14 br/min??Low ? Common Emergency Awareness Tips IS IT [...] are strongly encouraged to quit. Please call [facility] Link at [phone] or [phone] ([phone]) or log in to [email or web address] for referrals to smoking cessation programs. ?? The National Suicide Prevention Hotline is available 11/09 if you or someone you know needs to find a reason to keep living. By calling 0-623-851-BeliefNet (9398) you'll be connected to a skilled, trained counselor at a crisis center in your area. INPATIENT DISCHARGE INSTRUCTIONS SIGNATURE PAGE CHRISTINE MARLOW Location:[facility] Registration Date and Time:03/10/2022 05:13 [facility] Primary Care Physician: Maddie Kim MD, I CHRISTINE MARLOW, have received the above patient education materials/instructions and have verbalized understanding. If ambulance or transport services are being used I further acknowledge being givena choice of service. ?? If you need to contact me, please call me at this number: . Patient/Painting Trades Worker Name: Patient/Painting Trades Worker Signature: Relationship to Patient: Witness Name/Signature: Date: * Katia Oden RN: PERFORM, SIGN, VERIFY Event Display: Patient Education Handout Authored Date: [id number] * Katia Oden RN: PERFORM Event Display: Patient Education Leaflets Authored Date: Surgery Medical Daystay Surgical Overnight Discharge Instructions ?? 295 Medical Daystay/Surgical Overnight Discharge Instructions ? Since your coordination and judgment may be altered by medication and/or anesthesia, a responsible adult must drive you home from the hospital. ? If you have received medication for pain or sedation while under our care, you should not drive, operate machinery, drink alcohol, or sign any legal documents for 24 hours.?? You should have someone with you at home tonight. ? Remain at home the day of discharge.?? You may be up and about unless otherwise instructed by your physician. ? You may resume your daily prescription medication schedule.?? Any depressant medication should be avoided for 24 hours unless otherwise instructed by your surgeon or anesthesiologist. ? Call your physician for a follow-up appointment.? If you experience unusual or severe pain not relied by your pain medication, excessive bleedingor drainage, persistent nausea and vomiting, excessive swelling or redness, foul odor from incisionsite or fever over 100.6F, you need to call your physician. ? A follow-up phone call by a nurse will be made the day after your procedure.?? If you have stayed with us over night, you will not be receiving a follow-up phone call. ? Nausea and vomiting are a common side effect of prescription pain medication.?? We recommend that pills are not taken on an empty stomach.?? While taking any prescription pain medication you should not drive or drink alcohol. ? XR Knee - right 1 or 2 Views * BHSPowerscribe , CIS S: TRANSCRIBE Juan Ray MD: VERIFY Event Display: Result: Authored Date: [id number] Knee 1 or 2 Views Right, 2 views INDICATION/CLINICAL QUESTION: Reason: Postop; Clinical Question(s): Other:; Implant Position; Special Instructions: Do today for discharge, No flexed knee in the lateral position. Keep leg straight; 2 Views COMPARISON: 10/13/2018 FINDINGS: There are post surgical changes from right total knee arthroplasty in standard alignment without radiographic evidence of immediate complication. Overlying soft tissue swelling and soft tissue gas iscompatible with the immediate postoperative state. There is no unexpected radiopaque foreign body. IMPRESSION: Status post right total knee arthroplasty in standard alignment without evidence of immediate complication. WSN: [id number] Ordering Physician: Andrew James Dictated By: Juan Ray MD Dictated Date/Time: 03/10/22 1:04 pm Reviewed By: Juan Ray MD Signed By: Juan Ray MD Signed Date/Time: 03/10/22 1:04 pm Transcribed By: VASU Transcribed Date/Time: 03/10/22 1:03 pm Patient Care team information Care Team Personnel Name: Sharmaine Hunt RN Position: [facility] RN Member Role: Primary Care Nurse Name: Cait Rodriguez RN Position: [facility] RN Member Role: Primary Care Nurse Name: Rosa Isela Willis RN Position: [facility] RN Member Role: Primary Care Nurse Name: Dinah Rosas RN Position: [facility] RN Member Role: Primary Care Nurse Name: Sage Porter RN Position: [facility] RN Member Role: Primary Care Nurse Name: Soha James RN Position: [facility] RN Member Role: Primary Care Nurse Name: vYonne Armstrong RN Position: [facility] AMB Nurse Member Role: Primary Care Nurse Name: Maddie Kim MD Position: [facility] Physician (General Medicine) Member Role: PCP Address: Address: [address] [place] [address] Name: Dinah Cid RN Position: [facility] RN Member Role: Primary Care Nurse Name: Samreen Cole RN Position: [facility] Workers Compensation Examiner Member Role: Primary Care Nurse Name: Cornelio Fofana RN Position: [facility] RN Yadi Member Role: Primary Care Nurse Name: Lesly Lamb RN Position: [facility] RN Member Role: Primary Care Nurse Name: Stella Dent RN Position: [facility] RN Member Role: Primary Care Nurse Name: Marilynn Galvin RN Position: [facility] RN Member Role: Primary Care Nurse Name: Elva Ornelas RN Position: [facility] Workers Compensation Examiner Member Role: Primary Care Nurse Name: Enriqueta Phan RN Position: [facility] Workers Compensation Examiner Member Role: Primary Care Nurse Care Team Related Persons Name: RYANNE CLACNY Address: home [address] [place] [address] Name: FARIBA MARLOW Address: home [address] [place] [address] Name: JONES MARLOW Address: home [address] [place] [address] Name: JAMES OGDEN
--- OUTSIDE RECORDS SUMMARY | 2024-01-22 07:51 | XMS_ITS | Continuity of Care Document ---
Author Organization [facility] Jerzymichael del [employer] Address [address] [facility] [address] [address], [address] [place] [address]- Care Team Providers Care General Expeditor Name Role Phone Julio AHUMADA, Maddie iH Primary Care Physician [facility] [id number] Date(s): 12/30/21 - 02/04/22 [facility] Jerzymichael FelixISHs [facility] [address] [facility] [address] [facility], [address] [place] [address]- Attending Physician: Not on Staff, Attending MD Referring Physician: Fadia Byrd MD Allergies, [...] 03/09/22 12:58:00 EST, 02/01/22 12:57:00 EST, Patch, [facility]/pharmacy #[id number], Partial fill upon [...] Care Nurse Name: Cait Rodriguez RN Position: [facility] RN Member Role: Primary Care Nurse Name: Rosa Isela Willis RN Position: [facility] RN Member Role: Primary Care Nurse Name: Dinah Rosas RN Position: [facility] RN Member Role: Primary Care Nurse Name: Soha James RN Position: [facility] RN Member Role: Primary Care Nurse Name: Yvonne Armstrong RN Position: [facility] AMB Nurse Member Role: Primary Care Nurse Name: Maddie Kim MD Position: [facility] Physician (General Medicine) Member Role: PCP Address: Address: [address] [place] [address] Name: Dinah Cid RN Position: [facility] RN Member Role: Primary Care Nurse Name: Samreen Cole RN Position: [facility] College Counselor Member Role: Primary Care Nurse Name: Cornelio [...] Care Nurse Name: Elva Ornelas RN Position: [facility] College Counselor Member Role: Primary Care Nurse Name: Enriqueta Phan RN Position: [facility] College Counselor Member Role: Primary Care Nurse Care Team Related Persons Name: RYANNE CLANCY Address: home [address] [place] [address] Name: FARIBA MARLOW Address: home [address] [place] [address] Name: JONES MARLOW Address: home [address] [place] [address] Name: JAMES OGDEN
--- OUTSIDE RECORDS SUMMARY | 2024-01-22 07:51 | XMS_ITS | Continuity of Care Document ---
Author Organization [facility] Address [address], [address] [place] [address]- Care Team Providers Care Supervisor Paint Name Role Phone Julio AHUMADA, Maddie Hi Primary Care Physician [place] [facility] [place]s): 07/03/22 - 08/02/22 [facility] [place] [facility] [address], [address] [place], [place] [address] Allergies, Adverse Reactions, Alerts Substance Reaction Severity [...] 0 Refills, Maintenance, 03/10/22 9:59:00 EST, Capsule, [facility], Partial fill upon patient [...] Refills, Maintenance, 06/30/22 14:02:00 EDT, REC Powder, [facility], Partial fill upon patient request if [...] 06/30/22 14:02:00 EDT, Route to Pharmacy Electronically, [facility], Partialfill upon patient request [...] 0 Refills, Maintenance, 06/30/22 14:02:00 EDT, Capsule, [facility], Partial fill upon patient [...] Safety Implantable Status Assigning Authority Unknown Unknown [id number] Unknown 06/04/25 Unknown Unknown Active Unknown Patient Care team information Care Team Personnel Name: Sharmaine Hunt RN Position: [facility] RN Member Role: Primary Care Nurse Name: Cait Rodriguez RN Position: [facility] RN Member Role: Primary Care Nurse Name: Rosa Isela Willis RN Position: [facility] SN RN Member Role: Primary Care Nurse Name: Dinah Rosas RN Position: [facility] RN Member Role: Primary Care Nurse Name: Sage Porter RN Position: [facility] RN Member Role: Primary Care Nurse Name: Soha James RN Position: [facility] RN Member Role: Primary Care Nurse Name: Yvonne Armstrong RN Position: [facility] AMB Nurse Member Role: Primary Care Nurse Name: Maddie Kim MD Position: [facility] Physician - Primary Care Member Role: PCP Address: Address: [address] [place] [address], [facility] floor [address] Name: Dinah Cid RN Position: [facility] ED RN W/OE and Tasks Member Role: Primary Care Nurse Name: Samreen Cole RN Position: [facility] Payroll Coordinator Member Role: Primary Care Nurse Name: Cornelio Fofana RN Position: [facility] RN Supv Member Role: Primary Care Nurse Name: Stella Dent RN Position: [facility] RN Member Role: Primary Care Nurse Name: Marilynn Galvin RN Position: [facility] RN Member Role: Primary Care Nurse Name: Elva Ornelas RN Position: [facility] Payroll Coordinator Member Role: Primary Care Nurse Name: Enriqueta Phan RN Position: [facility] Payroll Coordinator Member Role: Primary Care Nurse Care Team Related Persons Name: RYANNE CLANCY Address: home [address] [facility] [place] [address] [place] [address] Name: FARIBA MARLOW Address: [address] [address] Name: JONES MARLOW Address: [address] [address] Name: JAMES OGDEN
--- OUTSIDE RECORDS SUMMARY | 2024-01-22 07:51 | XMS_ITS | Continuity of Care Document ---
Author Organization [facility] ter Address [address] [place] [address]- Care Team Providers Care Coagulation Operator Name Role Phone Julio AHUMADA, Maddie Hi Primary Care Physician Encounter [facility] Date(s): 03/10/22 - 04/09/[address] [id number] Attending Physician: Not on Staff, Attending MD Admitting Physician: Not on Staff, Admitting MD Referring Physician: Not on Staff, Referring [...] Team Personnel Name: Sharmaine Hunt RN Position: [facility] RN Member Role: Primary Care Nurse Name: Cait Rodriguez RN Position: [facility] RN Member Role: Primary Care Nurse Name: Rosa Isela Willis RN Position: [facility] SN RN Member Role: Primary Care Nurse Name: Dinah Rosas RN Position: [facility] RN Member Role: Primary Care Nurse Name: Sage Porter RN Position: [facility] RN Member Role: Primary Care Nurse Name: Soha James RN Position: [facility] RN Member Role: Primary Care Nurse Name: Yvonne Armstrong RN Position: [facility] Nurse Member Role: Primary Care Nurse Name: Maddie Kim MD Position: [facility] Physician (General Medicine) Member Role: PCP Address: Address: [address] [place] [id number] Name: Dinah Cid RN Position: [facility] RN Member Role: Primary Care Nurse Name: Samreen Cole RN Position: [facility] Convention Planner Member Role: Primary Care Nurse Name: Cornelio Fofana RN Position: [facility] RN Supv Member Role: Primary Care Nurse Name: Lesly aLmb RN Position: [facility] RN Member Role: Primary Care Nurse Name: Stella Dent RN Position: [facility] RN Member Role: Primary Care Nurse Name: Marilynn Galvin RN Position: [facility] RN Member Role: Primary Care Nurse Name: Elva Ornelas RN Position: [facility] Convention Planner Member Role: Primary Care Nurse Name: Enriqueta Phan RN Position: [facility] Convention Planner Member Role: Primary Care Nurse Care Team Related Persons Name: RYANNE CLANCY Address: home [address] [place] [address] Name: FARIBA MARLOW Address: home [address] [place] [address] Name: JONES MARLOW Address: home [address] [place] [address] Name: JAMES OGDEN
--- OUTSIDE RECORDS SUMMARY | 2024-01-22 07:51 | XMS_ITS | Continuity of Care Document ---
Author Organization [facility] Address [address] [place] [address] [address] [place] [address]- Care Team Providers Care Electric Gas Appliances Demonstrator Name Role Phone Julio AHUMADA, Maddie Hi Primary Care Physician [phone] [place] [facility] [place]/14/[place] - 10/14/[address] [place] [address]- Allergies, Adverse Reactions, Alerts Substance Reaction Severity [...] 0 Refills, Maintenance, 03/10/22 9:59:00 EST, Capsule, [facility], Partial fill upon patient request [...] Refills, Maintenance, 06/30/22 14:02:00 EDT, REC Powder, [facility], Partial fill upon patient request [...] 06/30/22 14:02:00 EDT, Route to Pharmacy Electronically, [facility], Partialfill upon patient request if [...] 0 Refills, Maintenance, 06/30/22 14:02:00 EDT, Capsule, [facility], Partial fill upon patient request [...] Safety Implantable Status Assigning Authority Unknown Unknown [id number] Unknown 06/04/25 Unknown Unknown Active Unknown Patient Care team information Care Team Personnel Name: Sharmaine Hunt RN Position: [facility] RN Member Role: Primary Care Nurse Name: Cait Rodriguez RN Position: [facility] RN Member Role: Primary Care Nurse Name: Rosa Isela Willis RN Position: [facility] SN RN Member Role: Primary Care Nurse Name: Dinah Rosas RN Position: [facility] RN Member Role: Primary Care Nurse Name: Sage Porter RN Position: [facility] RN Member Role: Primary Care Nurse Name: Soha James RN Position: [facility] RN Member Role: Primary Care Nurse Name: Yvonne Armstrong RN Position: [facility] Nurse Member Role: Primary Care Nurse Name: Maddie Kim MD Position: [facility] Physician - Primary Care Member Role: PCP Address: Address: [address] [place] [address], [address] [place] [address] Name: Dinah Cid RN Position: [facility] RN Member Role: Primary Care Nurse Name: Samreen Cole RN Position: [facility] Motel Operator Member Role: Primary Care Nurse Name: Stella Dent RN Position: [facility] RN Member Role: Primary Care Nurse Name: Marilynn Galvin RN Position: [facility] RN Member Role: Primary Care Nurse Name: Elva Ornelas RN Position: [facility] Motel Operator Member Role: Primary Care Nurse Name: Enriqueta Phan RN Position: [facility] Motel Operator Member Role: Primary Care Nurse Care Team Related Persons Name: RYANNE CLANCY Address: home [address] [address] Name: FARIBA MARLOW Address: home [address] [place] [address] Name: JONES MARLOW Address: home [address] [place] [address] Name: JAMES OGDEN
--- OUTSIDE RECORDS SUMMARY | 2024-01-22 07:51 | XMS_ITS | Continuity of Care Document ---
Author Organization [facility] Jerzymichael Boyd [employer] Address [address], [address] [place] [address]- Care Team Providers Care Helmet Binder Name Role Phone Julio AHUMADA, Maddie Hi Primary Care Physician [phone] Encounter [facility] Date(s): 01/05/22 - 02/04/22 [facility] Jerzymichael Felix[facility] [address], [address] [place], [place] [address] Allergies, Adverse Reactions, Alerts Substance Reaction [...] 12:58:00 EST, 02/01/22 12:57:00 EST, Patch, [facility]/pharmacy #[id number], Partial fill upon patient request if [...] Team Personnel Name: Sharmaine Hunt RN Position: [facility] RN Member Role: Primary Care Nurse Name: Cait Rodriguez RN Position: [facility] RN Member Role: Primary Care Nurse Name: Rosa Isela Willis RN Position: [facility] RN Member Role: Primary Care Nurse Name: Dinah Rosas RN Position: [facility] RN Member Role: Primary Care Nurse Name: Soha James RN Position: [facility] RN Member Role: Primary Care Nurse Name: Yvonne Armstrong RN Position: [facility] AMB Nurse Member Role: Primary Care Nurse Name: Maddie Kim MD Position: [facility] Physician (General Medicine) Member Role: PCP Address: Address: [address] [place] [address] Name: Dinah Cid RN Position: [facility] RN Member Role: Primary Care Nurse Name: Samreen Cole RN Position: [facility] Loss Prevention Leader Member Role: Primary Care Nurse Name: Cornelio Fofana RN Position: [facility] RN Supv Member Role: Primary Care Nurse Name: Lesly Lamb RN Position: [facility] RN Member Role: Primary Care Nurse Name: Stella Dent RN Position: [facility] RN Member Role: Primary Care Nurse Name: Marilynn Galvin RN Position: [facility] RN Member Role: Primary Care Nurse Name: Elva Ornelas RN Position: [facility] Loss Prevention Leader Member Role: Primary Care Nurse Name: Enriqueta Phan RN Position: [facility] Loss Prevention Leader Member Role: Primary Care Nurse Care Team Related Persons Name: RYANNE CLANCY Address: home [address] [place] [address] Name: FARIBA MARLOW Address: home [address] [place] [address] Name: JONES MARLOW Address: home [address] [place] [address] Name: JAMES OGDEN
--- OUTSIDE RECORDS SUMMARY | 2024-01-22 07:51 | XMS_ITS | Continuity of Care Document ---
Author Organization [facility] Jerzy owens [facility] Address [address] [address] [facility], [address] [place] [address]- Care Team Providers Care Window Dresser Name Role Phone Not on Staff, PCP Primary Care Physician Unavail able Encounter [facility] Date(s): 07/05/21 - 09/23/21 [facility] Jerzy Beckers [facility] [address], [address] [place] [address]- Attending Physician: Fadia Byrd MD Admitting Physician: [...] 01/09/19 9:44:56 EST, Route to Pharmacy Electronically, NCPDP_ID-[id number], [facility] [address] Start Date: 01/09/19 Status: Ordered divalproex [...] Replace Required Details, Route to Pharmacy Electronically, NCPDP_ID-[id number], [facility] Start Date: 01/09/19 Status: Ordered [...] 01/09/19 9:49:50 EST, Route to Pharmacy Electronically, NCPDP_ID-[id number], [facility] - [address] Start [...]
--- OUTSIDE RECORDS SUMMARY | 2024-01-22 07:51 | XMS_ITS | Continuity of Care Document ---
Author Organization [facility] Address [address] [place] [address], [address] [place] [address]- Care Team Providers Care Ash Pit Worker Name Role Phone Not on Staff, PCP Primary Care Physician Unavail able [place] [facility] [place] [place] Date(s): 11/17/21 - [facility]/17/21 [facility] [address] [facility], [address] [place], [place] [address] Attending Physician: Marvin Chaudhari Admitting Physician: [...]
--- OUTSIDE RECORDS SUMMARY | 2024-01-22 07:51 | XMS_ITS | Continuity of Care Document ---
Author Organization [facility] Address [address] [place] [address]- Care Team Providers Care Airplane Mechanic Apprentice Name Role Phone Not on Staff, PCP Primary Care Physician Unavail able Encounter [facility] Date(s): 03/25/19 - 04/04/19 [facility] [address] [place] [address] [facility] Attending Physician: Marvin Chaudhari Admitting Physician: Marvin [...] 01/09/19 9:44:56 EST, Route to Pharmacy Electronically, NCPDP_ID-[id number], [facility] [address] Start Date: 01/09/19 Status: Ordered divalproex [...] 01/09/19 9:55:33 EST, Route to Pharmacy Electronically, NCPDP_ID-[id number], [facility] - [address] [place] [address] Start Date: 01/09/19 Status: Ordered hydrOXYzine pamoate [...] Replace Required Details, Route to Pharmacy Electronically, NCPDP_ID-[id number], [facility] Start Date: 01/09/19 Status: Ordered [...] 01/09/19 9:49:50 EST, Route to Pharmacy Electronically, NCPDP_ID-[id number], [facility] [address] [facility] Start Date: 01/09/19 Status: Ordered Problem List [...]
--- OUTSIDE RECORDS SUMMARY | 2024-01-22 07:51 | XMS_ITS | Continuity of Care Document ---
Author Organization [facility] Address [address], [address] [place] [address]- Care Team Providers Care Program Instructor Name Role Phone Julio AHUMADA, Maddie Hi Primary Care [id number] Date[facility] 03/13/22 - 04/12/22 [facility] [address], [address] [place] [address]- Allergies, Adverse Reactions, Alerts Substance Reaction Severity [...] 0 Refills, Maintenance, 03/10/22 9:59:00 EST, Tablet, [facility], Partial fill upon patient request if the prescription is for aschedule II opioid drug., 160, cm, 03/10/22 6:50:00... Start Date: 03/10/22 Stop Date: 04/09/22 Status: Ordered celecoxib 200 mg oral capsule 1 capsule = 200 mg, By Mouth, Daily, # 30 capsule, 0 Refills, Maintenance, 03/10/22 9:59:00 EST, Capsule, [facility], Partial fill upon patient request [...] capsule, 0 Refills, Maintenance, 03/10/22 9:59:00EST, Capsule, [facility], Partial fill upon patient request [...] Maddie Kim MD Position: [facility] Physician (General Medicine) Member Role: PCP Address: Address: [address] [place] [address] Name: Dinah Cid RN Position: [facility] RN Member Role: Primary Care Nurse Name: Samreen Cole RN Position: [facility] Move Coordinator Member Role: Primary Care Nurse Name: Cornelio Fofana RN Position: [facility] RN Suprobina Member Role: Primary Care Nurse Name: Lesly Lamb RN Position: [facility] RN Member Role: Primary Care Nurse Name: Stella Dent RN Position: [facility] RN Member Role: Primary Care Nurse Name: Marilynn Galvin RN Position: [facility] RN Member Role: Primary Care Nurse Name: Elva Ornelas RN Position: [facility] Move Coordinator Member Role: Primary Care Nurse Name: Enriqueta Phan RN Position: [facility] Move Coordinator Member Role: Primary Care Nurse Care Team Related Persons Name: RYANNE CLANCY Address: home [address] [place] [address] Name: FARIBA MARLOW Address: home [address] [place] [address] Name: JONES MARLOW Address: home [address] [place] [place] [address] Name: JAMES OGDEN
--- OUTSIDE RECORDS SUMMARY | 2024-01-22 07:51 | XMS_ITS | Continuity of Care Document ---
Author Organization [facility] Address [address] [place] [address], [address] [place] [address]- Care Team Providers Care Dairy Laboratory Technician Name Role Phone Julio AHUMADA, Maddie Hi Primary Care Physician [phone] Encounter [facility] Date(s): 07/06/22 - 08/05/22 [facility] Jer[facility] [address] [facility], [address] [place], [place] [address] Allergies, Adverse Reactions, Alerts [...] 0 Refills, Maintenance, 03/10/22 9:59:00 EST, Capsule, [facility], Partial fill upon patient [...] Refills, Maintenance, 06/30/22 14:02:00 EDT, REC Powder, [facility], Partial fill upon patient request [...] 06/30/22 14:02:00 EDT, Route to Pharmacy Electronically, [facility], Partialfill upon patient request [...] 0 Refills, Maintenance, 06/30/22 14:02:00 EDT, Capsule, [facility], Partial fill upon patient [...] Safety Implantable Status Assigning Authority Unknown Unknown [id number] Unknown 06/04/25 Unknown Unknown Active Unknown Patient Care team information Care Team Personnel Name: Sharmaine Hunt RN Position: [facility] RN Member Role: Primary Care Nurse Name: Cait Rodriguez RN Position: [facility] RN Member Role: Primary Care Nurse Name: Rosa Isela Willis RN Position: [facility] SN RN Member Role: Primary Care Nurse Name: Dinah Rosas RN Position: [facility] RN Member Role: Primary Care Nurse Name: Sage Porter RN Position: [facility] RN Member Role: Primary Care Nurse Name: Soha James RN Position: [facility] RN Member Role: Primary Care Nurse Name: Yvonne Armstrong RN Position: [facility] AMB Nurse Member Role: Primary Care Nurse Name: Maddie Kim MD Position: [facility] Physician - Primary Care Member Role: PCP Address: Address: [address] [place] [address], [address] [place] [address] Name: Dinah Cid RN Position: [facility] RN Member Role: Primary Care Nurse Name: Samreen Cole RN Position: [facility] Director Of Scout Work Member Role: Primary Care Nurse Name: Cornelio Fofana RN Position: [facility] RN Yadi Member Role: Primary Care Nurse Name: Stella Dent RN Position: [facility] RN Member Role: Primary Care Nurse Name: Marilynn Galvin RN Position: [facility] RN Member Role: Primary Care Nurse Name: Elva Ornelas RN Position: [facility] Director Of Scout Work Member Role: Primary Care Nurse Name: Enriqueta Phan RN Position: [facility] Director Of Scout Work Member Role: Primary Care Nurse Care Team Related Persons Name: RYANNE CLANCY Address: home [address] [address] Name: FARIBA MARLOW Address: [address] [address] Name: JONES MARLOW Address: [address] [address] Name: JAMES OGDEN
--- OUTSIDE RECORDS SUMMARY | 2024-01-22 07:51 | XMS_ITS | Continuity of Care Document ---
Author Organization [facility] Address [address], 4t [place] [address]- Care Team Providers Care Public Health Inspector Name Role Phone Julio AHUMADA, Maddie Hi Primary Care Physician [phone] [place] [facility] Date(s[place] 07/03/22 - 08/02/22 [facility] [address], [address] [place], [place] [address] Allergies, Adverse Reactions, Alerts Substance Reaction [...] 0 Refills, Maintenance, 03/10/22 9:59:00 EST, Capsule, [facility], Partial fill upon patient [...] Maintenance, 06/30/22 14:02:00 EDT, REC Powder, [facility], Partial fill upon patient request [...] 06/30/22 14:02:00 EDT, Route to Pharmacy Electronically, [facility], Partialfill upon patient request [...] 0 Refills, Maintenance, 06/30/22 14:02:00 EDT, Capsule, [facility], Partial fill upon patient [...] 09/06/20 Active Prolapsed lumbar intervertebral disc Confirmed 8/18/11 Active Severe obesity Confirmed Active UI (urinary [...] Safety Implantable Status Assigning Authority Unknown Unknown [id number] 2 Unknown 06/04/25 Unknown Unknown Active Unknown [...] Care Nurse Name: Sage Porter RN Position: [facility] RN Member Role: Primary Care Nurse Name: Soha James RN Position: [facility] RN Member Role: Primary Care Nurse Name: Yvonne Armstrong RN Position: [facility] AMB Nurse Member Role: Primary Care Nurse Name: Maddie Kim MD Position: [facility] Physician - Primary Care Member Role: PCP Address: Address: [address] [place] [address], [address] Name: Dinah Cid RN Position: [facility] ED RN W/OE and Tasks Member Role: Primary Care Nurse Name: Samreen Cole RN Position: [facility] Mottle Lay Up Operator Member Role: Primary Care Nurse Name: Cornelio Fofana RN Position: [facility] RN Supv Member Role: Primary Care Nurse Name: Stella Dent RN Position: [facility] RN Member Role: Primary Care Nurse Name: Marilynn Galvin RN Position: [facility] RN Member Role: Primary Care Nurse Name: Elva Ornelas RN Position: [facility] Mottle Lay Up Operator Member Role: Primary Care Nurse Name: Enriqueta Phan RN Position: [facility] Mottle Lay Up Operator Member Role: Primary Care Nurse Care Team Related Persons Name: RYANNE CLANCY Address: home [address] [facility] [place] [address] [place] [address] Name: FARIBA MARLOW Address: [address] [address] Name: JONES MARLOW Address: [address] [address] Name: JAMES OGDEN
--- OUTSIDE RECORDS SUMMARY | 2024-01-22 07:51 | XMS_ITS | Continuity of Care Document ---
Author Organization [facility] Address [address] [place] [address] [address] [place] [address]- Care Team Providers Care Relationship Specialist Name Role Phone Maddie Kim MD Primary Care Physician [place] [facility] [place] 10/24/[place] - 01/25/[address] [place] [address]- Attending Physician: Gulshan Ho MD Referring Physician: Maddie Kim MD Allergies, [...] 0 Refills, Maintenance, 03/10/22 9:59:00 EST, Capsule, [facility], Partial fill upon patient request [...] Refills, Maintenance, 06/30/22 14:02:00 EDT, REC Powder, [facility], Partial fill [...] 06/30/22 14:02:00 EDT, Route to Pharmacy Electronically, [facility], Partialfill upon patient request if [...] 0 Refills, Maintenance, 06/30/22 14:02:00 EDT, Capsule, [facility], Partial fill upon patient request [...] Safety Implantable Status Assigning Authority Unknown Unknown [id number] Unknown 06/04/25 Unknown Unknown Active Unknown Patient Care team information Care Team Personnel Name: Sharmaine Hunt RN Position: [facility] RN Member Role: Primary Care Nurse Name: Cait Rodriguez RN Position: [facility] RN Member Role: Primary Care Nurse Name: Rosa Isela Willis RN Position: [facility] SN RN Member Role: Primary Care Nurse Name: Dinah Rosas RN Position: [facility] RN Member Role: Primary Care Nurse Name: Sage Porter RN Position: [facility] RN Member Role: Primary Care Nurse Name: Soha James RN Position: [facility] RN Member Role: Primary Care Nurse Name: Yvonne Armstrong RN Position: [facility] RN Member Role: Primary Care Nurse Name: Maddie Kim MD Position: [facility] Physician - Primary Care Member Role: PCP Address: Address: [address] [place] [address], [address] [place] [id number] Name: Dinah Cid RN Position: [facility] RN Member Role: Primary Care Nurse Name: Samreen Cole RN Position: [facility] Cold Header Member Role: Primary Care Nurse Name: Stella Dent RN Position: [facility] RN Member Role: Primary Care Nurse Name: Marilynn Galvin RN Position: [facility] RN Member Role: Primary Care Nurse Name: Elva Ornelas RN Position: [facility] Cold Header Member Role: Primary Care Nurse Name: Enriqueta Phan RN Position: [facility] Cold Header Member Role: Primary Care Nurse Care Team Related Persons Name: RYANNE CLANCY Address: home [address] [address] Name: FARIBA MARLOW Address: home [address] [place] [address] Name: JONES MARLOW Address: home [address] [place] [address] Name: JAMES OGDEN
--- OUTSIDE RECORDS SUMMARY | 2024-01-22 07:51 | XMS_ITS | Continuity of Care Document ---
Author Organization [facility] Address [address] [place] [address] [address] [place] [address]- Care Team Providers Care Drafting Clerk Name Role Phone Julio AHUMADA, Maddie Hi Primary Care Physician Encounter [facility] Date(s): 07/10/23 - 08/09/[address] [place] [address]- Attending Physician: Marvin Chaudhari Admitting Physician: Marvin [...] 159,cm, 04/17/23 15:16:00 EST, Height, 106, kg, 02/27/2... Start Date: 04/17/23 Status: Ordered gabapentin 300 [...] Refills, Maintenance, 06/30/22 14:02:00 EDT, REC Powder, [facility], Partial fill upon patient [...] 0 Refills, Maintenance, 06/30/22 14:02:00 EDT, Capsule, [facility], Partial fill upon patient request [...] Safety Implantable Status Assigning Authority Unknown Unknown [id number] 2 Unknown 06/04/25 Unknown Unknown Active Unknown Patient Care team information Care Team Personnel Name: Sharmaine Hunt RN Position: [facility] RN Member Role: Primary Care Nurse Name: Cait Rodriguez RN Position: [facility] RN Member Role: Primary Care Nurse Name: Rosa Isela Willis RN Position: [facility] SN RN Member Role: Primary Care Nurse Name: Dinah Rosas RN Position: [facility] RN Member Role: Primary Care Nurse Name: Sage Porter RN Position: [facility] RN Member Role: Primary Care Nurse Name: Soha James RN Position: [facility] RN Member Role: Primary Care Nurse Name: Yvonne Armstrong RN Position: [facility] AMB Nurse Member Role: Primary Care Nurse Name: Maddie Kim MD Position: [facility] Physician - Primary Care Member Role: PCP Address: Address: [address] [place] [address], [address] [place] [address] Name: Dinah Cid RN Position: [facility] RN Member Role: Primary Care Nurse Name: Samreen Cole RN Position: [facility] Table And Desk Finisher Member Role: Primary Care Nurse Name: Stella Dent RN Position: [facility] RN Member Role: Primary Care Nurse Name: Marilynn Galvin RN Position: [facility] RN Member Role: Primary Care Nurse Name: Elva Ornelas RN Position: [facility] Table And Desk Finisher Member Role: Primary Care Nurse Name: Enriqueta Phan RN Position: [facility] Table And Desk Finisher Member Role: Primary Care Nurse Care Team Related Persons Name: RYANNE CLANCY Address: home [address] [facility] [address] [place] [address] Name: FARIBA MARLOW Address: home [address] [place] [address] Name: JONES MARLOW Address: home [address] [place] [address] Name: JAMES OGDEN
--- NOTE | 2024-01-22 07:52 | MHC.OFFVIS ---
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 annual exam Reed Press Feeder Required: No Information Interpreted: non-clinical & clinical Manager Six Sigma: Manager Six Sigma Present (Catherine Whittaker TEODORO) Accompanied by: Self / Same As Patient Allergies hydromorphone Allergy (Intermediate, Verified 01/22/24 07:58) Rash acyclovir Allergy (Unknown, Verified 01/22/24 07:58) Unknown insect venom [INSECT BITES] Allergy (Unknown, Verified 01/22/24 07:58) UNKNOWN sulfamethoxazole [From BACTRIM] Allergy (Unknown, Verified 01/22/24 07:58) Anaphylaxis trimethoprim [From BACTRIM] Allergy (Unknown, Verified 01/22/24 07:58) Anaphylaxis Penicillins [PCN] Allergy (Verified 01/22/24 07:58) Rash Is last menstrual period known: No HPI Comments Details: Presenting for annual exam. No complaints. Last Pap/HPV was in 09/10 ascus HPV E6/ 7, 18/45 positive followed by colpo/biopsy/ECC which came back negative for dysplasia Last Mammogram was BI-RADS 1 in 05/12 No [facility] History (Updated 01/22/24 @ 08:05 by John Schmidt MD) Trigger finger Carpal tunnel syndrome Bowel obstruction Abdominal wall ulcer LGSIL on Pap smear of cervix PTSD (post-traumatic stress disorder) Cocaine abuse Baclofen overdose Bipolar 1 disorder, manic, moderate Alcohol abuse Substance abuse Psychiatric diagnosis Hypertension Surgical History H/O removal of cyst Gastric bypass status for obesity Hx of tubal ligation History of stress incontinence procedure using tension free vaginal tape History of knee replacement procedure of right knee History of cholecystectomy History of ankle surgery Family History Family/Other Breast cancer Maternal Aunt Cervical cancer Social History Household Members: None Household Members Other:: lives by self Housing: Apartment Do you presently have visiting nurse or other home services: No Unable to assess alcohol history related to: Unknown Alcohol intake: unknown Comment: 1:1 sitter for safety Patient Tobacco Use Status: Current everyday Tobacco user Tobacco use type: Cigarette Cigarette Packs Per Day: 1 Cigarettes Per Day: 20.0 e-Cigarette/Vaping Use: Currently Using Second Hand Smoke Exposure: No Substance Use Type: Marijuana Advance Directives Date on File: 03/18/21 service: No 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al status: unemployed 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 handed/ [employer] Sexual orientation: Bisexual Female Reproductive History Menstrual Age of Menarche: 16 control method: permanent sterilization Total pregnancies: 1 Full term: 1 Number of Living Children: 1 Date of last pap smear: 09/12/22 History of abnormal pap smear: Yes (Ascus,HPV) Date of Mammogram: 05/04/23 Review of Systems Const All systems reviewed & are unremarkable except as noted in HPI and below Card Reports as per HPI Resp Reports as per HPI GI Reports as per HPI and Reports no additional complaints Reports as per HPI Physical Exam Vital Signs: Last Vital Signs BP 122/74 01/22/24 07:57 BMI result Body Mass Index 43.5 Const General: cooperative, healthy appearing and comfortable Chest Chest palpation & inspection: normal inspection of the chest and normal palpation of entire chest wall Breast/axilla inspection: normal inspection of the breasts and normal inspection of the axillae Breast/axilla palpation: normal palpation of the breasts, normal palpation of the axillae and no axillary lymphadenopathy Resp Effort & Inspection: normal respiratory effort Auscultation: clear to auscultation bilaterally Percussion: percussion normal Cardio Palpation: normal PMI Rate: regular rate Rhythm: regular rhythm Heart sounds: no murmurs and no rubs Peripheral pulses: Peripheral pulses 2+ throughout GI Inspection: Yes normal to inspection Palpation (GI): Soft to palpation, nontender, no guarding, not rigid and No hepatosplenomegaly present Percussion: Yes normal to percussion Auscultation: normal bowel sounds Rectal Exam - Female: deferred General: Yes bladder normal to palpation External Female Exam: No lesion Speculum Exam - Vagina: normal appearance of the vagina, normal palpation, normal vaginal discharge and not erythematous Speculum Exam - Cervix: normal appearance of the cervix and normal palpation Bimanual exam- vagina & uterus: normal bimanual exam, normal palpation, uterine size normal, bladder normal to palpation, consistency normal and normal palpation Bimanual Exam- Adnexa, other: normal adnexae, no masses and no tenderness Assessment & Plan Assessment & Plan (1) Well woman exam: Code(s): Z01.419 - Encounter for gynecological examination (general) (routine) without abnormal findings Category: Medical Plan: Cotesting done. Instructions given to patient to schedule next screening Mammogram in 05/13. Counseled the patient about the recommended dietary allowance of 1000 mg of Calcium & 600 IU of vitamin D. The patient is in the process of scheduling with GI her screening colonoscopy The patient was instructed to perform monthly self-breast exams and to schedule an annual exam in a year; All questions answered and the patient verbalized understanding. Instructed the patient to schedule annual exam in a year Orders: Orders Pap Smear Today R87.610 - Atypical squamous cells of undetermined significance on cytologic smear of cervix (ASC-US), R87.810 - Cervical high risk human papillomavirus (HPV) DNA test positive, Z01.419 - Encounter for gynecological examination (general) (routine) without abnormal findings HPV High risk Today R87.610 - Atypical squamous cells of undetermined significance on cytologic smear of cervix (ASC-US), R87.810 - Cervical high risk human papillomavirus (HPV) DNA test positive, Z01.419 - Encounter for gynecological examination (general) (routine) without abnormal findings Coding Level of Care Code Est Pt Prev Care 40-64y(00983) Diagnoses Well woman exam Z01.419
--- OUTSIDE RECORDS SUMMARY | 2024-01-22 07:52 | XMS_ITS | Continuity of Care Document ---
Author Organization [facility] [employer] Address [address] [place] [address], 4[address] [place] [address]- Care Team Providers Care Director Pharmacology Name Role Phone Julio AHUMADA, Maddie Hi Primary Care Physician [phone] [id number] Date[facility]s): 05/02/22 - 08/30/22 [facility] Jerzymichael Felix[facility] [address] [facility], [address] [place] [address]- Attending Physician: Fadia Byrd MD Admitting Physician: Fadia Byrd MD Referring Physician: Madide Kim MD Allergies, Adverse Reactions, Alerts Substance [...] 0 Refills, Maintenance, 03/10/22 9:59:00 EST, Capsule, [facility], Partial fill upon patient [...] Refills, Maintenance, 06/30/22 14:02:00 EDT, REC Powder, [facility], Partial fill upon patient [...] 06/30/22 14:02:00 EDT, Route to Pharmacy Electronically, [facility], Partialfill upon patient request [...] 0 Refills, Maintenance, 06/30/22 14:02:00 EDT, Capsule, [facility], Partial fill upon patient [...] Safety Implantable Status Assigning Authority Unknown Unknown [id number] 2 Unknown 06/04/25 Unknown Unknown Active Unknown Patient Care team information Care Team Personnel Name: Sharmaine Hunt RN Position: [facility] RN Member Role: Primary Care Nurse Name: Cait Rodriguez RN Position: [facility] RN Member Role: Primary Care Nurse Name: Rosa Isela Willis RN Position: [facility] RN Member Role: Primary Care Nurse Name: Dinah Rosas RN Position: [facility] RN Member Role: Primary Care Nurse Name: Sage Porter RN Position: [facility] RN Member Role: Primary Care Nurse Name: Soha James RN Position: [facility] RN Member Role: Primary Care Nurse Name: Yvonne Armstrong RN Position: [facility] AMB Nurse Member Role: Primary Care Nurse Name: Maddie Kim MD Position: [facility] Physician - Primary Care Member Role: PCP Address: Address: [address] [place] [address], [address] Name: Dinah Cid RN Position: [facility] RN Member Role: Primary Care Nurse Name: Samreen Cole RN Position: [facility] [employer] Drier Feeder Member Role: Primary Care Nurse Name: Cornelio Fofana RN Position: [facility] RN Yadi Member Role: Primary Care Nurse Name: Stella Dent RN Position: [facility] RN Member Role: Primary Care Nurse Name: Marilynn Galvin RN Position: [facility] RN Member Role: Primary Care Nurse Name: Elva Ornelas RN Position: [facility] [employer] D[employer] Feeder Member Role: Primary Care Nurse Name: Enriqueta Phan RN Position: [facility] [employer] Feeder Member Role: Primary Care Nurse Care Team Related Persons Name: RYANNE CLANCY Address: home [address] [facility] [address] [place] [address] Name: FARIBA MARLOW Address: home [address] [place] [address] Name: JONES MARLOW Address: home [address] [place] [address] Name: JAMES OGDEN
--- OUTSIDE RECORDS SUMMARY | 2024-01-22 07:52 | XMS_ITS | Continuity of Care Document ---
Author Organization [facility] Address [address] [place] [address], [address] [place] [address]- Care Team Providers Care Pipe Turner Name Role Phone Julio AHUMADA, Maddie Hi Primary Care Physician [phone] [place] [facility] 12/04/22 - 01/03/23 [facility] [address] [facility], 4th Floor [place], [place] [address] Attending Physician: Marvin Chaudhari Admitting [...] Refills, Maintenance, 03/10/22 9:59:00 EST, Capsule, [facility], Partial fill upon [...] Maintenance, 06/30/22 14:02:00 EDT, REC Powder, [facility], Partial fill upon patient request if [...] 06/30/22 14:02:00 EDT, Route to Pharmacy Electronically, [facility], Partialfill upon patient [...] Refills, Maintenance, 06/30/22 14:02:00 EDT, Capsule, [facility], Partial fill upon [...] Date Device Type Site Transvaginal Tape Karolyno aFdia Byrd MD 06/30/22 Unk nown Urethra Device Identifier Serial Number Lot or Batch Number Manufacturing Date Expiration Date Distinct Identification Code MRI Safety Implantable Status Assigning Authority Unknown Unknown [id number] 2 Unknown 06/04/25 Unknown Unknown Active Unknown Laboratory * Event Display: Non Lab Results Authored Date: Patient Care team information Care Team Personnel Name: Sharmaine Hunt RN Position: [facility] RN Member Role: Primary Care Nurse Name: Cait Rodriguez RN Position: [facility] RN Member Role: Primary Care Nurse Name: Rosa Isela Willis RN Position: [facility] RN Member Role: Primary Care Nurse Name: Dinah Rosas RN Position: [facility] RN Member Role: Primary Care Nurse Name: Sage Porter RN Position: [facility] RN Member Role: Primary Care Nurse Name: Soha James RN Position: [facility] RN Member Role: Primary Care Nurse Name: Yvonne Armstrong RN Position: [facility] RN Member Role: Primary Care Nurse Name: Maddie Kim MD Position: [facility] Physician - Primary Care Member Role: PCP Address: Address: [address] [place] [address], [address] [place] [address] Name: Dinah Cid RN Position: [facility] RN Member Role: Primary Care Nurse Name: Samreen Cole RN Position: [facility] Billboard Installer Member Role: Primary Care Nurse Name: Stella Dent RN Position: [facility] RN Member Role: Primary Care Nurse Name: Marilynn Galvin RN Position: [facility] RN Member Role: Primary Care Nurse Name: Elva Ornelas RN Position: [facility] Billboard Installer Member Role: Primary Care Nurse Name: Enriqueta Phan RN Position: [facility] Billboard Installer Member Role: Primary Care Nurse Care Team Related Persons Name: RYANNE CLANCY Address: home [address] [address] Name: FARIBA MARLOW Address: [address] [address] Name: JONES MARLOW Address: [address] [address] Name: JAMES OGDEN
--- OUTSIDE RECORDS SUMMARY | 2024-01-22 07:52 | XMS_ITS | Continuity of Care Document ---
Author Organization [facility] Address [address] [place] [address], [address]t [place] [address]- Care Team Providers Care Stevedoring Superintendent Name Role Phone Julio AHUMADA, Maddie Hi Primary Care Physician Encounter [facility] Date(s): 07/10/22 - 08/09/22 [facility] Jerzymichael [facility] [address] [facility], [address] [place], [place] [address] Allergies, Adverse Reactions, Alerts Substance Reaction Severity [...] 0 Refills, Maintenance, 03/10/22 9:59:00 EST, Capsule, [facility], Partial fill upon patient [...] Refills, Maintenance, 06/30/22 14:02:00 EDT, REC Powder, [facility], Partial fill upon patient request [...] 06/30/22 14:02:00 EDT, Route to Pharmacy Electronically, [facility], Partialfill upon patient request if [...] 0 Refills, Maintenance, 06/30/22 14:02:00 EDT, Capsule, [facility], Partial fill upon patient [...] Safety Implantable Status Assigning Authority Unknown Unknown [id number] Unknown 06/04/25 Unknown Unknown Active Unknown Patient Care team information Care Team Personnel Name: Sharmaine Hunt RN Position: [facility] RN Member Role: Primary Care Nurse Name: Cait Rodriguez RN Position: [facility] RN Member Role: Primary Care Nurse Name: Rosa Isela Willis RN Position: [facility] SN RN Member Role: Primary Care Nurse Name: Dinah Rosas RN Position: [facility] RN Member Role: Primary Care Nurse Name: Sage Porter RN Position: [facility] RN Member Role: Primary Care Nurse Name: Soha James RN Position: [facility] RN Member Role: Primary Care Nurse Name: Yvonne Armstrong RN Position: [facility] AMB Nurse Member Role: Primary Care Nurse Name: Maddie Kim MD Position: [facility] Physician - Primary Care Member Role: PCP Address: Address: [address] [place] [address], [facility] floor [address] Name: Dinah Cid RN Position: [facility] RN Member Role: Primary Care Nurse Name: Samreen Cole RN Position: [facility] First Sampler Member Role: Primary Care Nurse Name: Cornelio Fofana RN Position: [facility] RN Yadi Member Role: Primary Care Nurse Name: Stella Dent RN Position: [facility] RN Member Role: Primary Care Nurse Name: Marilynn Galvin RN Position: [facility] RN Member Role: Primary Care Nurse Name: Elva Ornelas RN Position: [facility] First Sampler Member Role: Primary Care Nurse Name: Enriqueta Phan RN Position: [facility] First Sampler Member Role: Primary Care Nurse Care Team Related Persons Name: RYANNE CLANCY Address: home [address] [address] Name: FARIBA MARLOW Address: [address] [address] Name: JONES MARLOW Address: [address] [address] Name: JAMES OGDEN
--- OUTSIDE RECORDS SUMMARY | 2024-01-22 07:52 | XMS_ITS | Continuity of Care Document ---
Author Organization [facility] Address [address] [place] [address] [address] [place] [address]- Care Team Providers Care Hospice Aide Name Role Phone Julio AHUMADA, Maddie Hi Primary Care Physician [phone] Encounter [facility] Date(s): 10/26/22 - 11/25/[address] [place] [address]- Allergies, Adverse Reactions, Alerts Substance Reaction Severity [...] 0 Refills, Maintenance, 03/10/22 9:59:00 EST, Capsule, [facility], Partial fill upon [...] Refills, Maintenance, 06/30/22 14:02:00 EDT, REC Powder, [facility], Partial fill upon patient request [...] 06/30/22 14:02:00 EDT, Route to Pharmacy Electronically, [facility], Partialfill upon patient request [...] 0 Refills, Maintenance, 06/30/22 14:02:00 EDT, Capsule, [facility], Partial fill upon patient request [...] Safety Implantable Status Assigning Authority Unknown Unknown [id number] Unknown 06/04/25 Unknown Unknown Active Unknown Patient Care team information Care Team Personnel Name: Sharmaine Hunt RN Position: [facility] RN Member Role: Primary Care Nurse Name: Cait Rodriguez RN Position: [facility] RN Member Role: Primary Care Nurse Name: Rosa Isela Willis RN Position: [facility] SN RN Member Role: Primary Care Nurse Name: Dinah Rosas RN Position: [facility] RN Member Role: Primary Care Nurse Name: Sage Porter RN Position: [facility] RN Member Role: Primary Care Nurse Name: Soha James RN Position: [facility] RN Member Role: Primary Care Nurse Name: Yvonne Armstrong RN Position: [facility] Nurse Member Role: Primary Care Nurse Name: Maddie Kim MD Position: [facility] Physician - Primary Care Member Role: PCP Address: Address: [address] [place] [address], [address] [place] [id number] Name: Dinah Cid RN Position: [facility] RN Member Role: Primary Care Nurse Name: Samreen Cole RN Position: [facility] Battery Vent Plug Inserter Member Role: Primary Care Nurse Name: Stella Dent RN Position: [facility] RN Member Role: Primary Care Nurse Name: Marilynn Galvin RN Position: [facility] RN Member Role: Primary Care Nurse Name: Elva Ornelas RN Position: [facility] Battery Vent Plug Inserter Member Role: Primary Care Nurse Name: Enriqueta Phan RN Position: [facility] Battery Vent Plug Inserter Member Role: Primary Care Nurse Care Team Related Persons Name: RYANNE CLANCY Address: home [address] [address] Name: FARIBA MARLOW Address: [address] [place] [address] Name: JONES MARLOW Address: [address] [place] [address] Name: JAMES OGDEN
--- OUTSIDE RECORDS SUMMARY | 2024-01-22 07:52 | XMS_ITS | Continuity of Care Document ---
Author Organization [facility] ter Address [address] [place] [address]- Care Team Providers Care Children'S Librarian Name Role Phone Julio AHUMADA, Maddie Hi Primary Care Physician [facility]counter [facility] Date(s): 06/30/22 - 06/30/[address] [address] Discharge Disposition: A-D/C Home Attending Physician: Fadia Byrd MD Admitting Physician: [...] 0 Refills, Maintenance, 03/10/22 9:59:00 EST, Capsule, [facility], Partial fill upon patient [...] Refills, Maintenance, 06/30/22 14:02:00 EDT, REC Powder, [facility], Partial fill upon patient request [...] 06/30/22 14:02:00 EDT, Route to Pharmacy Electronically, [facility], Partialfill upon patient request if the prescription is fo... Start Date: 06/30/22 Status: Ordered Oxycodone 5mg Oral Tablet (PACU ONLY) 10 mg, Tablet, By Mouth, Once, in PACU ONLY, PRN for Pain , Severe, Routine, 06/30/22 14:12:00 EDT Start Date: 06/30/22 Stop Date: 06/30/22 Status: Completed prazosin 5 mg oral capsule 5 mg, [...] 0 Refills, Maintenance, 06/30/22 14:02:00 EDT, Capsule, [facility], Partial fill upon patient [...] Range]: 1 2 3 Height 160 cm (06/30/22 1:27 PM) 160 cm (06/28/22 9:35 AM) Weight 109.0 kg (06/30/22 1: PM) 110 kg (06/28/22 9:35 AM) Oxygen Saturation [94-100 %] 94 % (06/30/22 3:15 PM) 96 % (06/30/22 3:00 PM) 96 % (06/30/22 2:45 PM) Pulse Rate [55-90 bpm] 71 bpm (06/30/22 1:27 PM) Body Mass Index [18.5-24.99 kg/m2] 42.58 kg/m2 *>HHI* (06/30/22 1:27 PM) 42.97 kg/m2 *>HHI* (06/28/22 9:35 AM) Blood Pressure [90-138/55-84 mm Hg] 141/98mm Hg *H* (06/30/22 3:15 PM) 149/102mm Hg *H* (06/30/22 3:00 PM) 147/119mm Hg *H* (06/30/22 2:45 PM) Respiratory Rate [16-30 br/min] 17 br/min (06/30/22 3:15 PM) 20 br/min (06/30/22 3:10 PM) 15 br/min *L* (06/30/22 3:00 PM) Temperature [96.8-100.4 DegF] 97.6 DegF (06/30/22 3:15 PM) 97.4 DegF (06/30/22 2:15 PM) 97.9 DegF (06/30/22 1:27 PM) Liters per Minute 6 L/min (06/30/22 2:45 PM) 6 L/min (06/30/22 2:30 PM) 6 L/min (06/30/22 2:15 PM) Mode of Delivery (Oxygen) Room air (06/30/22 5:45 PM) Room air (06/30/22 3:15 PM) Room air (06/30/22 3:00 PM) Blood pressure sites Arm, left (06/30/22 3:15 PM) Arm, left (06/30/22 3:00 PM) Arm, left (06/30/22 2:45 PM) Temperature Route Temporal (06/30/22 3:15 PM) Temporal (06/30/22 2:15 PM) Temporal (06/30/22 1:27 PM) Dry Weight 109.0 kg (06/30/22 1:27 PM) Weight Obtained Via Standing scale (06/30/22 1:27 PM) Patient/family stated (06/28/22 9:35 AM) Dry Weight Obtained Via Standing scale (06/30/22 1:27 PM) Social History Social History Type Response [...] Safety Implantable Status Assigning Authority Unknown Unknown [id number] Unknown 06/04/25 Unknown Unknown Active Unknown Note * Reshma Singh RN: PERFORM Event Display: Discharge/Transfer Note Hospital Authored Date: [id number] Nursing Discharge Note Entered On: 06/30/2022 17:59 EDT Performed On: 06/30/2022 17:58 EDT by Reshma Singh RN Nursing Discharge Note 2 Discharge Time : 06/30/2022 17:50 EDT Discharge Level of Care at Discharge : Home/Longterm/Foster Care Patient Left Unit Via : Wheelchair Patient Accompanied Off Unit with : Responsible adult DC Instructions Provided & Signed by Pt : Yes Patient Understands D/C Instructions : Yes Patient Instructions Discharge Signed : Yes Did Pt have Specialty Bed or Wound Vac : No Reshma Singh RN - 06/30/2022 17:58 EDT * Reshma Singh RN: PERFORM Event Display: Patient Education/Instruction Authored Date: [id number] Inpatient Adult Discharge Instructions [address] [address] Name: CHRISTINE MARLOW : 1975 Visit: 06/30/2022 11:29:00 Current Date: 06/30/2022 14:53 Account: [id number] Inpatient Adult Discharge Instructions We would like [...] and their families. Surveys are administered by [employer] ?? If further treatment with your primary care physician or another doctor is recommended, it is important for you to keep the appointment. Call your primary care physician or return to the Emergency Department immediately if your condition worsens, fails to improve, or new symptoms develop. If you need to find a doctor, you can call [facility] for a referral at [phone] or toll free at [phone] or log in to [email or web address].. ?? You can view and manage your care through the patient portal or by using a health care nehemias of your choosing. [employer] is a website that allows you to securely view your medical information including your hospital discharge summary, office visit summaries, medications and follow-up visits. You can also request appointments, renew medications, and request access to your medical information using a health care nehemias of your choosing, or just ask a question. You can enroll at [email or web address] or register during your next office visit. You have been discharged from [facility], Patient Care Unit: [facility]. If you have any questions regarding these instructions after you leave, please call us and we will be happy to assist you. [facility] Your Care Team Attending Physician Carson AHUMADA, Fadia Bedoya Discharging Providers Daria Neville DO Reason for Your Visit STRESS URINARY INCONTINENCE CS DS Tests Performed Below is a partial list of the tests performed during your hospitalization. You may have had other tests and procedures not included in this list. Please discuss all test results with your provider. Primary Care Provider Julio AHUMADA, Maddie Hi Advance Directive . Discharge Vitals Temperature: 97.4 DegF Height: 160 cm Pulse Rate: 71 bpm Weight: 109 kg Respiratory Rate: 20 br/min Body Mass Index:??42.58 kg/m2??Critical Systolic Blood Pressure:??147 mm Hg??High Body surface area: 2.2 Diastolic Blood Pressure:??119 mm Hg??High ?? Oxygen Saturation: 96 % ?? Studies Pending All tests and labs ordered during this hospital stay have been completed unless listed below. Please discuss all pending results with your provider listed above in these instructions. ?? No incomplete studies found What to do next Instructions From Your Doctor Discharge Orders Instructions from your Care Team Please see attached discharge paperwork Scheduled Follow-Up Appointments Sunday. 2022 1:40 PM EDT ?? With: Carson AHUMADA, Fadia Bedoya Where: [facility] [address] [place] [address]- You Need to Schedule the Following Appointments Follow Up with??Fadia Byrd When?? Where: [address] [place] [address] [place] [address]- [facility] (1) Follow Up with??Maddie Kim When??In 0 days Discharge Medications KASHMIRCHRISTINE :1975 Visit Date:06/30/2022 Medications: Please continue your medications until treatment is completed or stopped by your provider. Medications not listed below should be discontinued. Discuss any questions related to medications with your provider. What How Much When Instructions Next Dose New Acetaminophen (Tylenol 325 mg oral capsule) 2 capsule Oral Every 4 hours as needed for as needed for pain Pickup at [facility] 3 New Oxycodone (oxyCODONE 5 mg oral tablet) 1 tab(s) Oral Every 6 hours as needed for for pain Pickup at [place] [address] New Polyethylene Glycol 3350 (MiraLax oral powder for reconstitution) 17 gram Oral Daily dissolve in water before taking ?? Pickup at [facility] 3 Unchanged Celecoxib (celecoxib 200 mg oral capsule) 1 capsule Oral Daily Unchanged Divalproex Sodium 1,000 Milligram Oral take BID ?? Unchanged Emollients, Topical (Minerin topical cream) Topically 4 times a day Unchanged Gabapentin (gabapentin 300 mg oral capsule) 1 capsule Oral 3 times a day Unchanged Levothyroxine (levothyroxine 0.025 mg oral tablet) 1 tab(s) Oral Daily for hypothyroidism ?? Unchanged Lisinopril 5 Milligram Oral Daily Unchanged Omeprazole (omeprazole 20 mg oral delayed release tablet) 1 tab(s) Oral Daily Unchanged paliperidone (Invega Sustenna 234 mg/ 1.5 mL intramuscular suspension, extended release) 234 Milligram Intramuscular Every 28 days Unchanged Prazosin (prazosin 5 mg oral capsule) 1 capsule Oral 3 times a day Unchanged Terbinafine (Lamisil) 250 Milligram Oral Daily Pharmacy Information [facility] 3: [address], [place] [id number] [phone] Test Results Below is a partial list [...] Surgery Medical Daystay Surgical Overnight Discharge Instructions?? Surgery Medical Daystay Surgical Overnight Discharge Instructions?? Valuables and Belongings I fully understand and agree that [facility] accepts no responsibility for all my personal [...] of Valuable and Belonging List: With patient Date for Pt to Sign Valuables/Belongings: 06/30/22 13:27:00 ?? Valuables & Belongings ?? Clothes Electronic devices Jewelry Monetary Items Personal devices Miscellaneous Medications (Valuables) Valuables at Bedside Jacket, Pants, Shirt, Shoes, Undergarments Cell phone Other: left ear piercing ? Valuables Sent Home ? Valuables Sent to Security ? Other Discharge Information ? Pulmonary Rehab Status?? Pulmonary Rehab Discharge Status?? Respiratory Rate: 20 br/min ? Common Emergency Awareness Tips IS [...] are strongly encouraged to quit. Please call [facility] Link at [phone] or [phone]) or log in to [email or web address] for referrals to smoking cessation programs. ?? 436 Suicide & Crisis Lifeline is available 11/09 if you or someone you know needs to find a reason to keep living. By calling 426 you'll be connected to a skilled, trained counselor at a crisis center in your area. INPATIENT DISCHARGE INSTRUCTIONS SIGNATURE PAGE CHRISTINE MARLOW Location:[facility] Registration Date and Time:06/30/2022 11:29 EDT Primary Care Physician: Julio AHUMADA, Maddie Hi, I KASHMIR CHRISTINE, have received the above patient education materials/instructions and have verbalized understanding. If ambulance or transport services are being used I further acknowledge being givena choice of service. ?? If you need to contact me, please call me at this number: . Patient/Automotive Parts Interpreter Name:CHRISTINE MAROLW Patient/Automotive Parts Interpreter Signature: Relationship to Patient: Witness Name/Signature: Date: * Reshma Singh RN: PERFORM, SIGN, VERIFY Event Display: Patient Education Handout Authored Date: [id number] * Reshma Singh RN: PERFORM Event Display: Patient Education Leaflets Authored Date: [id number] Riuz Catheter Removal ?? 727[address] Ruiz Catheter Removal Your healthcare provider has instructed you to remove your indwelling urinary catheter. It's also called a Ruiz catheter. This is a thin, flexible tube that allows urine to drain out of your bladderand into a bag. It???s important to correctly remove your catheter to help prevent infection and other complications. If you have any questions about removing the Ruiz catheter, ask your healthcare provider before trying to remove it. Otherwise, follow the instructions on this sheet. Ruiz catheter The Ruiz catheter is held in place by a small balloon that???s filled with water. To remove the catheter, you must first drain the water from the balloon. This is done using a syringe and the balloon port. This is the opening in the catheter that isn???t attached to the bag. It allows you to get to the balloon. The syringe is put into the balloon port to allow the balloon to empty. Once the balloon is empty, the catheter can be removed. ?? Instructions for removing the catheter Follow the directions closely. If the catheter doesn???t come out with gentle pulling, stop and call your healthcare provider right away. ??? Empty the bag of urine if needed. ??? Wash your hands with soap and clean, running water. Dry them well. ??? Gather your supplies. This includes a wastebasket, a??towel, and a syringe that was given to you by your healthcare provider. ??? Put the syringe into the balloon port on the catheter. The syringe fits tightly into the port with a firm push and twist motion. ??? Wait as the water from the balloon empties into the syringe. Depending on how large the balloon is, you may need to repeat this process several times until all of the water is out of the balloon. ??? Once the balloon is emptied, gently pull out the catheter. ??? Put the used catheter in the wastebasket. Also throw away the syringe. ??? Use the towel to wipe up any spilled water or urine if needed. ??? Wash your hands again. ?? When to call your healthcare provider Call your healthcare provider right away if: ??? You have a fever of?? 100.4?? F??( 38??C ) or higher, or as directed by your provider ??? You have questions about removing the catheter ??? The catheter doesn???t come out with gentle pulling ??? You can???t urinate within?? 8??hours after removing the catheter ??? Your belly (abdomen) is painful or bloated ??? You have burning pain with urinationthat lasts for?? 24??hours ??? You see a lot of blood in the urine. Light bleeding for?? 24??hours is normal. ??? It feels like the bladder is not emptying ?? Last Reviewed Date: 2021 ?? [employer]. All rights reserved. This information is not intended as a substitute for professional medical care. Always follow your healthcare professional's instructions. ?? * Reshma Singh RN: PERFORM Event Display: Patient Education Leaflets Authored Date: [id number] Ruiz Catheter Care ?? [id number] Ruiz Catheter Care A Ruiz catheter is a rubber tube that is placed through the urethra and into the bladder. The urethra is the opening where urine comes out. The catheter helps drain urine from the bladder. There is a small balloon on the end of the tube that is inflated after the catheter is put in place. This keeps the catheter from sliding out of the bladder. A Ruiz catheter is used when you are unable to pass urine (urinary retention). It's also used whenthere is loss of bladder control (incontinence). It's also used after bladder or prostate surgery. Home care ??? Finish taking any prescribed antibiotic medicine even if you are feeling better before then. ??? It's important to keep bacteria from getting into the collection bag. Don't disconnect the catheter from the collection bag. ??? Use a leg band to secure the drainage tube, so it doesn't pull on the catheter. ??? Don't try to pull or remove your catheter. This will injure your urethra. It must be removed by your healthcare provider or nurse. ??? Drain the collection bag when it becomesfull using the drain spout at the bottom of the bag. ?? Follow-up care Follow up with your healthcare provider, or as advised. This is for repeat urine testing and for catheter removal or replacement. ?? When to seek medical advice Call your healthcare provider right away if any of these occur: ??? Fever of 100.4??F (38??C) or higher, or as directed by your healthcare provider ??? Bladder pain or fullness ??? Abdominal swelling, nausea or vomiting, or back pain ??? Blood or urine leakage around the catheter ??? Bloody urine coming from the catheter (if a new symptom) ??? Catheter falls out ??? Catheter stops draining for 6 hours ??? Weakness, dizziness, or fainting ?? Last Reviewed Date: 2021 ?? [employer]. All rights reserved. This information is not intended as a substitute for professional medical care. Always follow your healthcare professional's instructions. ?? * Reshma Singh RN: PERFORM Event Display: Patient Education Leaflets Authored Date: [id number] Surgery Leg Bag and Ruiz Catheter Care Discharge Instructions ?? 294 Leg Bag and Care of Your Ruiz Catheter ?? To keep the area clean, you should clean the catheter and the area where it enters your body with soap and water 3 times a day and as needed. ?? Make sure the catheter is securely attached to your thigh to prevent pulling and possible irritation of the urethra and bladder. ?? If you are using a leg bag, do not attach the rubber straps too tightly.?? Remember to check the skin around your leg for irritation. ?? Make sure tubing is not kinked so urine can flow freely.?? Empty the drainage bag regularly, leg bags should be emptied when they are 1/3 to ?? full and night bags at least every 8 hours, more frequently as needed. ?? Always keep the drainage bag lower than the level of your bladder. Keep night bags off the floor atall times to prevent contamination of the urine. ?? It is usually safest to hang the drainage bag on the outside of a small wastebasket.?? This prevents people and pets from tripping on the tubing if they walk by you. ?? Clean the drain ports an connection sites of the catheter and drainage bag with alcohol wipes when changing from leg bag to night bag and from night bag to leg bag. ?? Wash drainage bags (when not in use) with warm soapy water and rinse well.?? Allow to air dry completely, then reapply caps to ends to keep the bags clean until next use.?? Bags may be rinsed with vinegar and water to help remove odor when necessary. ?? Don???t hesitate to call your doctor or the unit you were discharged from if you have any questions. ? Patient Care team information Care Team Personnel Name: Sharmaine Hunt RN Position: [facility] RN Member Role: Primary Care Nurse Name: Cait Rodriguez RN Position: [facility] RN Member Role: Primary Care Nurse Name: Rosa Isela Willis RN Position: [facility] SN RN Member Role: Primary Care Nurse Name: Dinah Rosas RN Position: [facility] RN Member Role: Primary Care Nurse Name: Sage Porter RN Position: [facility] RN Member Role: Primary Care Nurse Name: Soha James RN Position: [facility] RN Member Role: Primary Care Nurse Name: Yvnone Armstrong RN Position: [facility] AMB Nurse Member Role: Primary Care Nurse Name: Maddie Kim MD Position: [facility] Physician (General Medicine) Member Role: PCP Address: Address: [address] [place] [address], [address] [place] [address] Name: Dinah Cid RN Position: [facility] RN Member Role: Primary Care Nurse Name: Samreen Cole RN Position: [facility] Hospital Cake Washer Member Role: Primary Care Nurse Name: Cornelio Fofana RN Position: [facility] RN Supv Member Role: Primary Care Nurse Name: Stella Dent RN Position: [facility] RN Member Role: Primary Care Nurse Name: Marilynn Galvin RN Position: [facility] RN Member Role: Primary Care Nurse Name: Elva Ornelas RN Position: [facility] Cake Washer Member Role: Primary Care Nurse Name: Enriqueta Phan RN Position: [facility] Cake Washer Member Role: Primary Care Nurse Care Team Related Persons Name: RYANNE CLANCY Address: [address] [address] Name: FARIBA MARLOW Address: home [address] [place] [address] Name: JONES MARLOW Address: home [address] [place] [address] Name: JAMES OGDEN
--- OUTSIDE RECORDS SUMMARY | 2024-01-22 07:52 | XMS_ITS | Continuity of Care Document ---
Author Organization [facility] Address [address] [place] [address]- Care Team Providers Care Ground Water Pump Installer Name Role Phone Not on Staff, PCP Primary Care Physician Unavail able [facility]counter [facility] Date(s): 07/05/21 - 10/05/21 [facility] [address] [place] [address]- Attending Physician: Fadia Byrd MD Admitting Physician: [...] 01/09/19 9:44:56 EST, Route to Pharmacy Electronically, NCPDP_ID-[id number], [facility] [address] Start Date: 01/09/19 Status: Ordered divalproex [...] Replace Required Details, Route to Pharmacy Electronically, NCPDP_ID-[id number], [facility] Start Date: 01/09/19 Status: Ordered Risperdal Consta [...] 01/09/19 9:49:50 EST, Route to Pharmacy Electronically, NCPDP_ID-[id number], [facility] - [address] Start [...]
--- OUTSIDE RECORDS SUMMARY | 2024-01-22 07:52 | XMS_ITS | Continuity of Care Document ---
Author Organization [facility] Address [address] [place] [address]- Care Team Providers Care Tool And Die Assembler Name Role Phone Not on Staff, PCP Primary Care Physician Unavail able Encounter [facility] Date(s): 02/28/21 - 03/03/[address] [address]- Encounter Diagnosis Homicidal ideation(Final) - 02/28/21 Discharge Disposition: Transfer to [facility] Facility Attending Physician: Kamla Knight MD Admitting Physician: Kamla Knight MD Referring Physician: Not on Staff, Referring [...] 01/09/19 9:44:56 EST, Route to Pharmacy Electronically, NCPDP_ID-[id number], [facility] - [address] Start [...] 01/09/19 9:55:33 EST, Route to Pharmacy Electronically, NCPDP_ID-[id number], [facility] - [address] [place] [address] Start Date: 01/09/19 Status: Ordered hydrOXYzine pamoate 50 mg oral capsule See Instructions, PRN Anxiety, take 1 capsule u to three times daily as needed for anxiety, # 21 capsule, 3 Refills, Maintenance, 01/09/19 9:53:20 EST, Capsule Start Date: 01/09/19 Status: Ordered ibuprofen 600 mg oral tablet 600 mg, Tablet, By Mouth, 3 times a day, PRN for Pain , Mild, Routine, 03/01/21 14:37:00 EST Start Date: 03/01/21 Stop Date: 03/03/21 Status: Discontinued levothyroxine 0.025 mg oral tablet [...] Status: Ordered prazosin 1 mg oral capsule 5 mg, Capsule, By Mouth, 03/02/21 21:00:00 EST Start Date: 03/02/21 Stop Date: 03/02/21 Status: Completed prazosin 1 mg oral capsule See Instructions, take 3 capsules ( = 3 mg ) daily at bedtime for nightmares, # 21 capsule, Refills3, Tot. Refills 3, Maintenance, 01/09/19 9:44:09 EST, Instructions Replace Required Details, Route to Pharmacy Electronically, NCPDP_ID-[id number], [facility] Start Date: 01/09/19 Status: Ordered [...] 01/09/19 9:49:50 EST, Route to Pharmacy Electronically, NCPDP_ID-[id number], [facility] - [address] Start [...] to oldest [Reference Range]: 1 2 3 Oxygen Saturation [94-100 %] 100 % (03/03/21 7:55 AM) 100 % (03/03/21 2:38 AM) 99 % (03/02/21 9:25 PM) Pulse Rate [55-90 bpm] 90 bpm (03/03/21 7:55 AM) 79 bpm (03/03/21 2:38 AM) 98 bpm *H* (03/02/21 9:25 PM) Blood Pressure [90-138/55-84 mm Hg] 136/95mm Hg (03/03/21 7:55 AM) 137/84mm Hg (03/03/21 2:38 AM) 147/96mm Hg *H* (03/02/21 10:26 PM) Respiratory Rate [16-30 br/min] 16 br/min (03/03/21 9:02 AM) 16 br/min (03/03/21 7:55 AM) 16 br/min (03/03/21 2:38 AM) Temperature [96.8-100.4 DegF] 97.9 DegF (03/03/21 7:55 AM) 98.3 DegF (03/03/21 2:38 AM) 98.3 DegF (03/02/21 9:25 PM) Mode of Delivery (Oxygen) Room air (03/03/21 7:55 AM) Room air (03/03/21 2:38 AM) Room air (03/02/21 9:25 PM) Blood pressure sites Arm, left (03/03/21 7:55 AM) Arm, left (03/03/21 2:38 AM) Arm, right (03/02/21 9:25 PM) Temperature Route Oral (03/03/21 7:55 AM) Oral (03/03/21 2:38 AM) Oral (03/02/21 9:25 PM) Social History Social History Type Response Tobacco Use: 4 or less cigar ettes(less than 1/4 pack)/day in last 30 days. Sex
--- OUTSIDE RECORDS SUMMARY | 2024-01-22 07:52 | XMS_ITS | Continuity of Care Document ---
Author Organization [facility] Address [address] [place] [address]- Care Team Providers Care Silver Chaser Name Role Phone Not on Staff, PCP Primary Care Physician Unavail able Encounter [facility] [place] Date(s): 03/17/21 - 04/16/[address] [address] Attending Physician: Marvin Chaudhari Admitting Physician: AdmMarvin bar Referring Physician: AdmtrMarvin Allergies, Adverse Reactions, Alerts [...] 01/09/19 9:44:56 EST, Route to Pharmacy Electronically, NCPDP_[id number], [facility] - [address] [place] [address] Start Date: 01/09/19 Status: Ordered divalproex sodium [...] 01/09/19 9:55:33 EST, Route to Pharmacy Electronically, DCPDP_[id number], [facility] - [address] [place] [address] Start Date: 01/09/19 Status: Ordered hydrOXYzine pamoate [...] Replace Required Details, Route to Pharmacy Electronically, NCPDP_[id number], [facility] Start Date: 01/09/19 Status: [...] 01/09/19 9:49:50 EST, Route to Pharmacy Electronically, NCPDP_ID-[id number], [facility] [address] Start Date: [...]
--- OUTSIDE RECORDS SUMMARY | 2024-01-22 07:52 | XMS_ITS | Continuity of Care Document ---
Author Organization [facility] Address [address] [place] [address]- Care Team Providers Care Log Check Scaler Name Role Phone Julio AHUMADA, Maddie Hi Primary Care Physician Encounter [facility] Date(s): 05/28/23 - 05/28/[address] [address]- Discharge Disposition: A-D/C Home Attending Physician: Sandro Lombardi MD Admitting Physician: Sandro Lombardi MD Referring Physician: Not on Staff, Referring MD Allergies, Adverse Reactions, Alerts Substance Reaction Severity Status penicillin RASH Active Bactrim DS Throat swelling Active Dilaudid red face, itchy over wholw body Active Immunizations Given and Recorded Vaccine Date Status Refusal Reason influenza virus vaccine, inactivated 01/18/16 Give n pneumococcal 23-valent vaccine 05/26/15 Given tetanus/diphtheria/pertussis, acel(Tdap) 1 09/19/10 Recorded 1Result Comment: [01/18/2016] school Medications acetaminophen 325 mg oral tablet 975 mg, Tablet, By Mouth, Once, STAT, 05/28/23 16:03:00 EDT, Stop date 05/28/23 16:03:00 EDT Start Date: 05/28/23 Stop Date: 05/28/23 Status: Completed Divalproex Sodium = 1,000 mg, By Mouth, take BID, 0 Refills, Maintenance, 11/15/21 8:03:00 EDT, Partial fill upon patient request if the prescription is for a schedule II opioid drug. Start Date: 11/15/21 Status: Ordered EpiPen 2-Johan 0.3 mg injectable kit = 0.3 mg, Intramuscular, Once, # 1 each, 0 Refills, Soft Stop, 04/17/23 16:24:00 EST, [facility]/pharmacy #[id number], Partial fill upon patient request [...] Refills, Maintenance, 06/30/22 14:02:00 EDT, REC Powder, [facility], Partial fill upon patient request if [...] 0 Refills, Maintenance, 06/30/22 14:02:00 EDT, Capsule, [facility], Partial fill upon patient [...] Exam Date Time Procedure Performing Provider Status 05/28/23 4:[address] Abd/Pelvis W/ IV Contrast Only Gunnar Nicholas; Auth (Verified) Notes: (CT Abd/Pelvis W/ IV Contrast Only) Reason For Exam: abdominal pain, obstruction;Other: RESULT: CT Abd/Pelvis W/ IV Contrast Only CT Abd/Pelvis W/ IV Contrast Only Hx of Present Illness: Pt arrives with c o RLQ and upper abd pain that started yesterday. Pt reports she vomited bright red blood x2 yesterday. Hx of ulcers and bowel obstruction. Reports normal bowel movements.; Reason: Other:; abdominal pain, obstruction; Clinical Question(s): Abscess; Order Comment: Patient unable to tolerate PO contrast. TECHNIQUE: Spiral CT through the abdomen and pelvis with IV contrast formatted in 3 planes. 100 cc of Omnipaque 300 was administered intravenously. This study was performed without oral contrast. Weight-based protocol using automatic tube modulation was used to optimize exposure parameters. CTDIvol Body: 24.68 mGy, DLP Body: 1276 mGy*cm. COMPARISON: 07/19/2017 CT abdomen pelvis. FINDINGS: Police Judge View Findings, Lines and Tubes: None. Visualized Chest: Lung bases are clear. No pleural effusion. The heart is normal in size. No pericardial effusion. Diaphragm: Normal. Liver: Minimal focal fat deposition or focal perfusion difference adjacent to the falciform ligament similar to 07/19/2017. No suspicious mass.. Gallbladder: Surgically absent gallbladder. Bile ducts: No biliary ductal dilation. Spleen: Normal. Pancreas: Normal. Adrenal glands: Normal. Kidneys and ureters: No hydronephrosis, stones, or suspicious masses. Bladder: Normal. Reproductive organs: Normal uterus and adnexa. 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 Normalcaliber small bowel and colon. No bowel obstruction or bowel wall thickening. No surrounding inflammatory changes. Appendix: Normal. Peritoneum and retroperitoneum: No ascites or pneumoperitoneum. No omental or mesenteric lesions. Lymph nodes: No enlarged lymph nodes. Blood vessels: Normal. No aneurysm. No evidence of venous thrombosis. Abdominal and pelvic wall: Unremarkable. Bones: No acute abnormality. No suspicious bone abnormality. Minimal RIGHT convex curvature of the lower lumbar spine. There is L4-L5 degenerative disc space narrowing and marked degenerative L4-L5 endplate sclerosis. IMPRESSION: 1. No acute process in the abdomen and pelvis. No bowel obstruction or bowel wall thickening. 2. Gastric bypass, without evidence of complication. WSN: [id number] Ordering Physician: Cammy Palmer Dictated By: Milla West MD Dictated Date/Time: 05/28/23 4:50 pm Reviewed By: Milla West MD Signed By: Milla West MD Signed Date/Time: 05/28/23 4:50 pm Transcribed By: VASU Transcribed Date/Time: 05/28/23 4:42 pm Vital Signs Most recent to oldest [Reference Range]: 1 2 3 Height 158 cm (05/28/23 5:57 PM) 158 cm (05/28/23 11:20 AM) Weight 105.7 kg (05/28/23 5:57 PM) 105.7 kg (05/28/23 11:20 AM) Oxygen Saturation [94-100 %] 100 % (05/28/23 5:57 PM) 97 % (05/28/23 11:20 AM) 98 % (05/28/23 11:19 AM) Pulse Rate [55-90 bpm] 79 bpm (05/28/23 5:57 PM) 86 bpm (05/28/23 11:20 AM) 91 bpm *H* (05/28/23 11:19 AM) Body Mass Index [18.5-24.99 kg/m2] 42.34 kg/m2 *>HHI* (05/28/23 5:57 PM) Blood Pressure [90-138/55-84 mm Hg] 154/97mm Hg *H* (05/28/23 5:57 PM) 131/96mm Hg (05/28/23 11:20 AM) Respiratory Rate [16-30 br/min] 18 br/min (05/28/23 5:57 PM) 18 br/min (05/28/23 5:04 PM) 18 br/min (05/28/23 11:20 AM) Temperature [96.8-100.4 DegF] 97.9 DegF (05/28/23 11:20 AM) Mode of Delivery (Oxygen) Room air (05/28/23 5:57 PM) Room air (05/28/23 11:20 AM) Room air (05/28/23 11:19 AM) Blood pressure sites Arm, left (05/28/23 5:57 PM) Arm, left (05/28/23 11:20 AM) Temperature Route Temporal (05/28/23 11:20 AM) Dry Weight 105.7 kg (05/28/23 5:57 PM) 105.7 kg (05/28/23 11:20 AM) Weight Obtained Via Standing scale (05/28/23 11:20 AM) Dry Weight Obtained Via Standing scale (05/28/23 11:20 AM) Social History Social History Type Response [...] Safety Implantable Status Assigning Authority Unknown Unknown [id number] 2 Unknown 06/04/25 Unknown Unknown Active Unknown Note * Cammy Palmer DO: PERFORM Event Display: Patient Education Leaflets Authored Date: [id number] Peptic Ulcer ?? [id number] Peptic Ulcer A peptic ulcer is an open sore in the lining of the stomach. It may also occur in the first part ofthe small intestine (duodenum).?? Causes The most common causes of ulcers are: ??? H. pylori bacterial infection ??? Long-term use of nonsteroidal anti- inflammatory drugs (NSAIDs), such as aspirin or ibuprofen Other factors that can increase the risk for ulcers include older age and family history of peptic ulcers, and use of certain medicines. Tobacco and alcohol use are also risk factors. Emotional stress, worry, and spicy foods don't cause peptic ulcers. ?? Symptoms A peptic ulcer may or may not cause symptoms. If symptoms do occur, they can include: ??? Dull or burning pain anywhere between your belly button and breastbone ??? Loss of appetite ???Heartburn or upset stomach ??? Frequent burping ??? Bloated feeling ??? Nausea or vomiting. Vomit may be bloody or look like coffee grounds. ??? Black, tarry, or bloody stools (which means the ulcer is bleeding) Sometimes the bleeding is not seen. In these cases, it may be discovered by symptoms of low blood count (anemia), such as dizziness, weakness, shortness of breath, pale skin, trouble with exercise, or a blood test. If an ulcer is suspected, your healthcare provider may check for??H. pylori infection. To do this, you may have blood, stool, or breath tests.??Upper endoscopy (EGD) is usually done to check for ulcers and take samples (biopsies) to be evaluated under the microscope. An X-ray test called an upper ga strointestinal (GI) series can be done in some cases, but it could miss small ulcers that would be seen on the upper endoscopy. Without treatment, a peptic ulcer may get worse. This can lead to serious problems, such as bleeding, blockage, or a hole (perforation) in the stomach or duodenum. Treatment is needed to prevent these problems. Medicines are the most common treatment for peptic ulcers. In severe cases, surgery may be needed. ?? Home care Medicines If you???re prescribed medicines, be sure to take them as directed. Common medicines prescribed include: ??? Antibiotics.??These kill??H. pylori??bacteria. In many cases, you???ll need to take at least 2??types of antibiotics.??The regimens can be complicated and need many medicines either at once, or taken in order. This is because H. pylori bacteria is often hard to treat. It's very important to take the medicines as prescribed.? Proton pump inhibitors.??These block your stomach from making any acid. ??? H2??blockers.??These reduce the amount of acid your stomach makes.??These are sometimesused for duodenal ulcers. ??? Bismuth subsalicylate.??This helps protect the lining of your stomachand duodenum from acid. ??? Carafate. This coats the stomach lining to protect it and help with healing. General care ??? Don???t take any NSAIDS, such as aspirin, ibuprofen, or naproxen without talking with your healthcare provider first. They may delay healing. Also check with your provider before taking any antacids. ??? Don't use alcohol or tobacco. These may delay healing. They may also make??symptoms worse. ?? Follow-up care Follow up with your healthcare provider as directed.??If testing was done, you???ll be told the results when they are ready.??In some cases of gastric ulcer, a repeat upper endoscopy is needed to check for healing.??You may also need a test of cure after treatment for H. pylori. ?? When to get medical care Call your healthcare provider right away if any of these occur: ??? Fever of 100.4??F (38??C) or higher, or as advised by your provider ??? Stomach pain that worsens or moves to the lower right part of the belly (abdomen) ??? Continued weight loss ??? Pale skin ??? Fast heartbeat ??? Weakness or dizziness ??? Extreme tiredness (fatigue) ??? Shortness of breath ??? Frequent vomiting, blood in yourvomit, or coffee ground-like substance in your vomit ??? Black, tarry, or bloody stools ?? Call 911 Call 911??right away if any of these occur: ??? Sudden or severe pain in the stomach region ??? Stomach becomes rigid ??? Low body temperature ??? Unusually fast heart rate ??? Chest pain appears or gets worse, or spreads to the back, neck, shoulder, or arm ??? Trouble breathing or swallowing ??? Confusion ??? Extreme drowsiness or trouble waking up ??? Fainting ??? Large amounts of blood in the vomit or stool ?? Last Reviewed Date: 2021 ?? 0403-1565 [employer]. All rights reserved. This information is not intended as a substitute for professional medical care. Always follow your healthcare professional's instructions. ?? * Cammy Palmer DO: PERFORM Event Display: Patient Education Leaflets Authored Date: [id number] Gastritis (Adult) ?? [id number] Gastritis (Adult) Gastritis is??inflammation and??irritation of the stomach lining. You can have it for a short time (acute) or it can be long lasting (chronic). Infection with bacteria called??H. pylori most often causes gastritis.??More than 1 out of 3 people in the [place] have these bacteria in their bodies. In many cases,??H. pylori??causes no problems or symptoms. But in some people, the infection irritates thestomach lining and causes gastritis. H. pylori may be diagnosed through blood, stool, or breath tests, or by a biopsy during an endoscopy. Other causes of stomach irritation include drinking alcohol,smoking or chewing tobacco, or taking pain-relieving medicines called nonsteroidal anti-inflammatory drugs (NSAIDs), such as aspirin or ibuprofen. Some illegal drugs (such as cocaine) and immune conditions can also cause gastritis. Symptoms of gastritis can include: ??? Belly pain or bloating ??? Feeling full quickly ??? Loss of appetite ??? Weight loss ??? Nauseaor vomiting ??? Vomiting blood or having black stools ??? Feeling more tired than normal An inflamed and irritated stomach lining is more likely to develop a sore called an ulcer. To help prevent this, gastritis should be evaluated and treated as soon as symptoms occur. Home care If needed, your healthcare provider may prescribe medicines. If you have??H. pylori??infection, treating it will likely ease your symptoms. Other changes can help reduce stomach irritation and help it heal. ??? Take prescription medicines as directed. If you have been prescribed medicines for??H. pylori??infection, take them as directed. Take all of the medicine until it's finished or until your provider tells you to stop taking it, even if you start to feel better. ??? Follow your healthcare provider's advice on NSAIDs. Your provider may advise you not to take NSAIDs such as ibuprofen. If you take daily aspirin for your heart or other health reasons, don't stop without talking with your provider first. ??? Don't drink alcohol. If you need help stopping your use of alcohol, ask your provider for treatment resources. ??? Stop smoking. Smoking can irritate the stomach and delay healing. As much as possible, stay away from secondhand smoke. If you smoke and have trouble stopping, ask your provider for help. ?? Follow-up care Follow up with your healthcare provider, or as advised. You may need testing to check for inflammation or an ulcer. ?? When to get medical advice Call your healthcare provider if any of the following occur: ??? Stomach pain that gets worse or moves to the lower right belly (appendix area) ??? Chest pain that suddenly appears or gets worse, or spreads to the back, neck, shoulder, or arm ??? Frequent vomiting (can???t keep down liquids) ??? Blood in the stool or vomit (red or black in color) ??? Feeling weak or dizzy ??? Shortness of breath ??? Unexplained weight loss ??? Fever of 100.4??F (38??C) or higher, or as directed by your healthcare provider ??? Symptoms that get worse, or new symptoms ?? Last Reviewed Date: 2022 ?? 9206-8491 [employer]. All rights reserved. This information is not intended as a substitute for professional medical care. Always follow your healthcare professional's instructions. ?? Patient Care team information Care Team Personnel Name: Sharmaine Hunt RN Position: [facility] RN Member Role: Primary Care Nurse Name: Cait Rodriguez RN Position: [facility] RN Member Role: Primary Care Nurse Name: Rosa Isela Willis RN Position: [facility] SN RN Member Role: Primary Care Nurse Name: Dinah Rosas RN Position: [facility] RN Member Role: Primary Care Nurse Name: Sage Porter RN Position: [facility] RN Member Role: Primary Care Nurse Name: Soha James RN Position: [facility] RN Member Role: Primary Care Nurse Name: Yvonne Armstrong RN Position: [facility] Nurse Member Role: Primary Care Nurse Name: Maddie Kim MD Position: [facility] Physician - Primary Care Member Role: PCP Address: Address: [address] [place] [address], [address] [place] [address] Name: Dinah Cid RN Position: [facility] RN Member Role: Primary Care Nurse Name: Samreen Cole RN Position: [facility] Truck Shop Supervisor Member Role: Primary Care Nurse Name: Stella Dent RN Position: [facility] RN Member Role: Primary Care Nurse Name: Marilynn Galvin RN Position: [facility] RN Member Role: Primary Care Nurse Name: Elva Ornelas RN Position: [facility] Truck Shop Supervisor Member Role: Primary Care Nurse Name: Enriqueta Phan RN Position: [facility] Truck Shop Supervisor Member Role: Primary Care Nurse Care Team Related Persons Name: JULIETH RYANNE Address: home [address] [address] Name: FARIBA MARLOW Address: home [address] [place] [address] Name: JONES MARLOW Address: home [address] [place] [address] Name: JAMES OGDEN
--- OUTSIDE RECORDS SUMMARY | 2024-01-22 07:52 | XMS_ITS | Continuity of Care Document ---
Author Organization [facility] Jerzy owens [facility] Address [address], [address] [place] [address]- Care Team Providers Care Jack Frame Tender Name Role Phone Not on Staff, PCP Primary Care Physician Unavail able Encounter [facility] Date(s): 04/14/21 - 08/03/21 [facility] Jezry Beckers [facility] [address], [address] [place] [address]- Attending Physician: Fadia Byrd MD Admitting Physician: [...] 01/09/19 9:44:56 EST, Route to Pharmacy Electronically, NCPDP_[id number], [facility] [address] Start Date: 01/09/19 Status: Ordered [...] 01/09/19 9:55:33 EST, Route to Pharmacy Electronically, NCP[facility]ID-[id number], [facility] [address] Start Date: 01/09/19 Status: Ordered hydrOXYzine pamoate [...] Replace Required Details, Route to Pharmacy Electronically, NCPDP_[id number], [facility] Start Date: 01/09/19 Status: Ordered [...] 01/09/19 9:49:50 EST, Route to Pharmacy Electronically, NCPDP_ID-[id number], [facility] [address] [facility] Start Date: 01/09/19 Status: Ordered Problem List [...]
--- OUTSIDE RECORDS SUMMARY | 2024-01-22 07:52 | XMS_ITS | Continuity of Care Document ---
Author Organization [facility] Address [address], 4t [place] [address]- Care Team Providers Care Spice Blender Name Role Phone Not on Staff, PCP Primary Care Physician Unavail able Encounter [facility] Date(s): 01/10/21 - 04/13/21 [facility] Jerzy FelixWork4s [facility] [address], [address]th [place] [address]- Attending Physician: Fadia Byrd MD Admitting Physician: Fadia Byrd MD Referring Physician: Not on Staff, Referring [...] 01/09/19 9:44:56 EST, Route to Pharmacy Electronically, NCPDP_[id number], [facility] [address] Start Date: 01/09/19 Status: Ordered divalproex [...] 01/09/19 9:55:33 EST, [id number] - [address] [place] [address] Start Date: 01/09/19 Status: Ordered hydrOXYzine pamoate [...] Replace Required Details, Route to Pharmacy Electronically, NCPDP_[id number], [facility] Start Date: 01/09/19 Status: Ordered [...] 01/09/19 9:49:50 EST, Route to Pharmacy Electronically, NCPDP_ID-[id number], [facility] [address] [facility] Start Date: 01/09/19 Status: Ordered Problem [...]
--- OUTSIDE RECORDS SUMMARY | 2024-01-22 07:52 | XMS_ITS | Continuity of Care Document ---
Author Organization [email or web address] Address [address] [address] [facility], [address] [place] [address]- Care Team Providers Care Oil Field Equipment Mechanic Name Role Phone Not on Staff, PCP Primary Care Physician Unavail able Encounter [facility] Date(s): 01/10/21 - 04/02/21 [facility] Jerzymichael FelixVaraa.coms [facility] [address], 4th [place] [address]- Attending Physician: Fadia Byrd MD Admitting Physician: [...] 01/09/19 9:44:56 EST, Route to Pharmacy Electronically, NCPDP_ID-[id number], [facility] [address] Start Date: 01/09/19 Status: [...] 01/09/19 9:55:33 EST, [id number] - [address] [place] [address] Start Date: 01/09/19 Status: Ordered hydrOXYzine pamoate [...] Replace Required Details, Route to Pharmacy Electronically, NCPDP_ID-[id number], [facility] Start Date: 01/09/19 Status: Ordered [...] 01/09/19 9:49:50 EST, Route to Pharmacy Electronically, NCPDP_ID-[id number], [facility] [address] [facility] Start Date: 01/09/19 Status: Ordered Problem [...]
--- OUTSIDE RECORDS SUMMARY | 2024-01-22 07:52 | XMS_ITS | Continuity of Care Document ---
Author Organization [facility] Address [address], [address] [place] [address]- Care Team Providers Care Packager Name Role Phone Julio AHUMADA, Maddie Hi Primary [id number]12[facility] - 01[facility]11/22 [facility] [address], [address] [place] [address]- Allergies, Adverse Reactions, Alerts Substance Reaction Severity [...] on: 09/08/21 Sex Patient Care team information Care Team Personnel Name: Sharmaine Hunt RN Position: S RN Member Role: Primary Care Nurse Name: Cait Rodriguez RN Position: S RN Member Role: Primary Care Nurse Name: Rosa Isela Willis RN Position: [facility] RN Member Role: Primary Care Nurse Name: Dinah Rosas RN Position: S RN Member Role: Primary Care Nurse Name: Soha James RN Position: [facility] RN Member Role: Primary Care Nurse Name: Yvonne Armstrong RN Position: [facility] AMB Nurse Member Role: Primary Care Nurse Name: Maddie Kim MD Position: [facility] Physician (General Medicine) Member Role: PCP Address: Address: [address] [place] [address]- Name: Dinah Cid RN Position: [facility] ED RN W/OE and Tasks Member Role: Primary Care Nurse Name: Samreen Cole RN Position: [facility] Foreclosure Specialist Member Role: Primary Care Nurse Name: Cornelio Fofana RN Position: [facility] RN Supv Member Role: Primary Care Nurse Name: Lesly Lamb RN Position: [facility] RN Member Role: Primary Care Nurse Name: Stella Dent RN Position: [facility] RN Member Role: Primary Care Nurse Name: Marilynn Galvin RN Position: [facility] RN Member Role: Primary Care Nurse Name: Elva Ornelas RN Position: [facility] Foreclosure Specialist Member Role: Primary Care Nurse Name: Enriqueta Phan RN Position: [facility] Foreclosure Specialist Member Role: Primary Care Nurse Care Team Related Persons Name: RYANNE CLANCY Address: home [address] [place] [address] Name: FARIBA MARLOW Address: home [address] [place] [address] Name: JONES MARLOW Address: home [address] [place] [address] Name: JAMES OGDEN
--- OUTSIDE RECORDS SUMMARY | 2024-01-22 07:52 | XMS_ITS | Continuity of Care Document ---
Author Organization [facility] As formerly [facility] Address [address] [place] [address] [address] [place] [address]- Care Team Providers Care Health Safety Manager Name Role Phone Maddie Kim MD Primary Care Physician [phone] Encounter [facility] Date(s): 05/29/23 - 08/09/[address] [place] [address]- Attending Physician: Gulshan Ho MD Referring Physician: [...] Maintenance, 06/30/22 14:02:00 EDT, REC Powder, [facility], Partial fill upon patient [...] Refills, Maintenance, 06/30/22 14:02:00 EDT, Capsule, [facility], Partial fill upon patient [...] Safety Implantable Status Assigning Authority Unknown Unknown [id number] Unknown 06/04/25 Unknown Unknown Active Unknown [...] Primary Care Member Role: PCP Address: Address: [address] [place] [address], [facility] [place], [place] [address] Name: Dinah Cid RN Position: [facility] RN Member Role: Primary Care Nurse Name: Samreen Cole RN Position: [facility] Recovery Engineer Member Role: Primary Care Nurse Name: Stella Dent RN Position: [facility] RN Member Role: Primary Care Nurse Name: Marilynn Galvin RN Position: [facility] RN Member Role: Primary Care Nurse Name: Elva Ornelas RN Position: [facility] Recovery Engineer Member Role: Primary Care Nurse Name: Enriqueta Phan RN Position: [facility] Recovery Engineer Member Role: Primary Care Nurse Care Team Related Persons Name: RYANNE CLANCY Address: home [address] [facility] [place] [address] Name: FARIBA MARLOW Address: home [address] [place] [address] Name: JONES MARLOW Address: [address] [place] [address] Name: JAMES OGDEN
--- OUTSIDE RECORDS SUMMARY | 2024-01-22 07:52 | XMS_ITS | Continuity of Care Document ---
Author Organization [facility] Address [address] [place] [address] [address] [place] [address]- Care Team Providers Care Spot Billing Clerk Name Role Phone Not on Staff, PCP Primary Care Physician Unavail able Encounter [facility] Date(s): 11/11/21 - 12/11/[address] [place] [address]- Attending Physician: Marvin Chaudhari Admitting Physician: AdmMarvin [...]
--- OUTSIDE RECORDS SUMMARY | 2024-01-22 07:52 | XMS_ITS | Continuity of Care Document ---
Author Organization [facility] ter Address [address] [place] [address]- Care Team Providers Care Supervisor Conditioning Yard Name Role Phone Julio AHUMADA, Maddie Hi Primary Care Physician [phone] Encounter [facility] Date(s): 02/21/22 - 03/23/[address] [address]- Attending Physician: Marvin Chaudhari Admitting Physician: Marvin [...] Team Personnel Name: Sharmaine Hunt RN Position: [facility] RN Member Role: Primary Care Nurse Name: Cait Rodriguez RN Position: [facility] RN Member Role: Primary Care Nurse Name: Rosa Isela Willis RN Position: [facility] SN RN Member Role: Primary Care Nurse Name: Dinah Rosas RN Position: [facility] RN Member Role: Primary Care Nurse Name: Sage Porter RN Position: [facility] RN Member Role: Primary Care Nurse Name: Soha James RN Position: [facility] RN Member Role: Primary Care Nurse Name: Yvonne Armstrong RN Position: [facility] Nurse Member Role: Primary Care Nurse Name: Maddie Kim MD Position: [facility] Physician (General Medicine) Member Role: PCP Address: Address: [address] [place] [id number] [[email or web address] Name: Dinah Cid RN Position: [facility] RN Member Role: Primary Care Nurse Name: Samreen Cole RN Position: [facility] Manager Assisted Living Member Role: Primary Care Nurse Name: Cornelio Fofana RN Position: [facility] RN Supv Member Role: Primary Care Nurse Name: Lesly Lamb RN Position: [facility] RN Member Role: Primary Care Nurse Name: Stella Dent RN Position: [facility] RN Member Role: Primary Care Nurse Name: Marilynn Galvin RN Position: [facility] RN Member Role: Primary Care Nurse Name: Elva Ornelas RN Position: [facility] Manager Assisted Living Member Role: Primary Care Nurse Name: Enriqueta Phan RN Position: [facility] Manager Assisted Living Member Role: Primary Care Nurse Care Team Related Persons Name: RYANNE CLANCY Address: home [address] [place] [address] Name: FARIBA MARLOW Address: home [address] [place] [address] Name: JONES MARLOW Address: [address] [place] [address] Name: JAMES OGDEN
--- OUTSIDE RECORDS SUMMARY | 2024-01-22 07:52 | XMS_ITS | Continuity of Care Document ---
Author Organization [facility] Address [address] [place] [address]- Care Team Providers Care Associate Drafter Name Role Phone Julio AHUMADA, Maddie Hi Primary Care Physician [phone] Encounter [facility] Date(s): 04/17/23 - 04/17/[address] [address]- Encounter Diagnosis Anaphylaxis(Final) - 04/17/23 Discharge Disposition: A-D/C Home Attending Physician: Ana AHUMADA, Tigist Larios Admitting Physician: Tigist Perez MD Referring Physician: Not on Staff, Referring [...] 0 Refills, Maintenance, 03/10/22 9:59:00 EST, Capsule, [facility], Partial fill upon patient [...] 0 Refills, Soft Stop, 04/17/23 16:24:00 EST, [id number], Partial fill upon patient request [...] Refills, Maintenance, 06/30/22 14:02:00 EDT, REC Powder, [facility], Partial fill upon patient [...] 06/30/22 14:02:00 EDT, Route to Pharmacy Electronically, [facility], Partialfill upon patient request [...] 0 Refills, Maintenance, 06/30/22 14:02:00 EDT, Capsule, [facility], Partial fill upon patient [...] Most recent to oldest [Reference Range]: 1 Height 159 cm (04/17/23 3:11 PM) Weight 106 kg (04/17/23 3:11 PM) Oxygen Saturation [94-100 %] 100 % (04/17/23 3:11 PM) Pulse Rate [55-90 bpm] 67 bpm (04/17/23 3:11 PM) Blood Pressure [90-138/55-84 mm Hg] 121/ 85mm Hg (04/17/23 3:11 PM) Respiratory Rate [16-30 br/min] 20 br/mi n (04/17/23 3:11 PM) Temperature [96.8-100.4 DegF] 98.3 DegF (04/17/23 3:11 PM) Mode of Delivery (Oxygen) Room air (04/17/23 3:11 PM) Blood pressure sites Arm, left (04/17/23 3:11 PM) Temperature Route Oral (04/17/23 3:11 PM) Dry Weight 106 kg (04/17/23 3:11 PM) Social History Social History Type Response [...] Safety Implantable Status Assigning Authority Unknown Unknown [id number] Unknown 06/04/25 Unknown Unknown Active Unknown Patient Care team information Care Team Personnel Name: Sharmaine Hunt RN Position: [facility] RN Member Role: Primary Care Nurse Name: Cait Rodriguez RN Position: [facility] RN Member Role: Primary Care Nurse Name: Rosa Isela Willis RN Position: [facility] SN RN Member Role: Primary Care Nurse Name: Dinah Rosas RN Position: [facility] RN Member Role: Primary Care Nurse Name: Sage Porter RN Position: [facility] RN Member Role: Primary Care Nurse Name: Soha James RN Position: [facility] RN Member Role: Primary Care Nurse Name: Yvonne Armstrong RN Position: [facility] Nurse Member Role: Primary Care Nurse Name: Maddie Kim MD Position: [facility] Physician - Primary Care Member Role: PCP Address: Address: [address] [place] [address], [address] [place] [address] Name: Dinah Cid RN Position: [facility] RN Member Role: Primary Care Nurse Name: Samreen Cole RN Position: [facility] Farm Hel[employer] Member Role: Primary Care Nurse Name: Stella Dent RN Position: [facility] RN Member Role: Primary Care Nurse Name: Marilynn Galvin RN Position: [facility] RN Member Role: Primary Care Nurse Name: Elva Ornelas RN Position: [facility] [employer] Member Role: Primary Care Nurse Name: Enriqueta Phan RN Position: [facility] [employer] Member Role: Primary Care Nurse Care Team Related Persons Name: RYANNE CLANCY Address: home [address] [facility] [address] [facility] [address] [place] [address] Name: FARIBA MARLOW Address: home [address] [place] [address] Name: JONES MARLOW Address: [address] [place] [address] Name: JAMES OGDEN
--- OUTSIDE RECORDS SUMMARY | 2024-01-22 07:52 | XMS_ITS | Continuity of Care Document ---
Author Organization [facility] Jerzy linders [facility] Address [address], [address] [place] [address]- Care Team Providers Care Bioinformatics Research Technician Name Role Phone Not on Staff, PCP Primary Care Physician Unavail able Encounter [facility] Date(s): 10/03/21 - 11/02/21 [facility] Jerzy Beckers [facility] [address], [address] [place] [address]- Allergies, Adverse Reactions, Alerts Substance Reaction Severity [...] 01/09/19 9:44:56 EST, Route to Pharmacy Electronically, NCPDP_ID-[id number], [facility] [address] Start Date: 01/09/19 Status: Ordered divalproex [...] Replace Required Details, Route to Pharmacy Electronically, NCPDP_ID-[id number], [facility] Start Date: 01/09/19 Status: Ordered [...] 01/09/19 9:49:50 EST, Route to Pharmacy Electronically, NCPDP_ID-[id number], [facility] - [address] [place] [address] Start Date: 01/09/19 Status: Ordered Problem List [...] last 30 days entered on: 09/08/21 Sex Care Team Personnel Name: Not on Staff, PCP
--- OUTSIDE RECORDS SUMMARY | 2024-01-22 07:52 | XMS_ITS | Continuity of Care Document ---
Author Organization [facility] Deb linders [facility] Address [address] [facility], [address] [place] [address]- Care Team Providers Care Therapist Radiation Name Role Phone Not on Staff, PCP Primary Care Physician Unavail able Encounter [facility] Date(s): 09/05/21 - 10/05/21 [facility] Jerzy Beckers [facility] [address] [facility], 4th [place] [address]- Attending Physician: Marvin Chaudhari Admitting Physician: Marvin [...] 01/09/19 9:44:56 EST, Route to Pharmacy Electronically, NCPDP_ID-[id number], [facility] [address] Start Date: 01/09/19 Status: Ordered [...] Replace Required Details, Route to Pharmacy Electronically, NCPDP_ID-[id number], [facility] Start Date: 01/09/19 Status: [...] 01/09/19 9:49:50 EST, Route to Pharmacy Electronically, NCPDP_ID-[id number], [facility] - [address] Start [...]
--- OUTSIDE RECORDS SUMMARY | 2024-01-22 07:52 | XMS_ITS | Continuity of Care Document ---
Author Organization [facility] ter Address [address] [place] [address]- Care Team Providers Care Information Developer Name Role Phone Julio AHUMADA, Maddie Hi Primary Care Physician [phone] En[place] [facility] [place] Date(s): 03/15/22 - 03/15/[address] [address]- Discharge Disposition: A-D/C Walkout Attending Physician: Not on Staff, Attending MD [...] 0 Refills, Maintenance, 03/10/22 9:59:00 EST, Tablet, [facility], Partial fill upon patient request if the prescription is for aschedule II opioid drug., 160, cm, 03/10/22 6:50:00... Start Date: 03/10/22 Stop Date: 04/09/22 Status: Ordered celecoxib 200 mg oral capsule 1 capsule = 200 mg, By Mouth, Daily, # 30 capsule, 0 Refills, Maintenance, 03/10/22 9:59:00 EST, Capsule, [facility], Partial fill upon patient [...] capsule, 0 Refills, Maintenance, 03/10/22 9:59:00EST, Capsule, [facility], Partial fill upon patient [...] Replace Required Details, Route to Pharmacy Electronically, [facility] Start Date: 03/10/22 Stop Date: [...] 03/17/22 10:00:00 EST, 03/10/22 10:00:00 EST, Tablet, [facility], Partial fill upon patient [...] recent to oldest [Reference Range]: 1 2 Oxygen Saturation [94-100 %] 96 % (03/15/22 4:03 AM) 96 % (03/15/22 1:46 AM) Pulse Rate [55-90 bpm] 112 bpm *H* (03/15/22 4:03 AM) 114 bpm *H* (03/15/22 1:46 AM) Blood Pressure [90-138/55-84 mm Hg] 124/ 73mm Hg (03/15/22 4:03 AM) 143/80mm Hg *H* (03/15/22 1:46 AM) Respiratory Rate [16-30 br/min] 16 br/mi n (03/15/22 1:46 AM) Temperature [96.8-100.4 DegF] 98.7 DegF (03/15/22 4:03 AM) 97.9 DegF (03/15/22 1:46 AM) Mode of Delivery (Oxygen) Room air (03/15/22 4:03 AM) Room air (03/15/22 1:46 AM) Blood pressure sites Arm, right (03/15/22 4:03 AM) Arm, left (03/15/22 1:46 AM) Temperature Route Oral (03/15/22 4:03 AM) Oral (03/15/22 1:46 AM) Social History Social History Type Response Smoking Status 10 or more cigarette s (1/2 pack or more)/day in last 30 days; Other: smoking for 32 yrs.; entered on: 02/01/22 Sex Patient Care team information Care Team Personnel Name: Sharmaine Hunt RN Position: [facility] RN Member Role: Primary Care Nurse Name: Cait Rodriguez RN Position: [facility] RN Member Role: Primary Care Nurse Name: Rosa Isela Willis RN Position: [facility] SN RN Member Role: Primary Care Nurse Name: Dinah Rosas RN Position: [facility] RN Member Role: Primary Care Nurse Name: Sage Porter RN Position: [facility] RN Member Role: Primary Care Nurse Name: Soha James RN Position: [facility] RN Member Role: Primary Care Nurse Name: Yvonne Armstorng RN Position: [facility] AMB Nurse Member Role: Primary Care Nurse Name: Maddie Kim MD Position: [facility] Physician (General Medicine) Member Role: PCP Address: Address: [address] [place] [address] Name: Dinah Cid RN Position: [facility] RN Member Role: Primary Care Nurse Name: Samreen Cole RN Position: [facility] Software Engineer Web Services Member Role: Primary Care Nurse Name: Cornelio Fofana RN Position: [facility] RN Suprobina Member Role: Primary Care Nurse Name: Lesly Lamb RN Position: [facility] RN Member Role: Primary Care Nurse Name: Stella Dent RN Position: [facility] RN Member Role: Primary Care Nurse Name: Marilynn Galvin RN Position: [facility] RN Member Role: Primary Care Nurse Name: Elva Ornelas RN Position: [facility] Software Engineer Web Services Member Role: Primary Care Nurse Name: Enriqueta Phan RN Position: [facility] Software Engineer Web Services Member Role: Primary Care Nurse Care Team Related Persons Name: RYANNE CLANCY Address: home [address] [place] [id number] Name: FARIBA MARLOW Address: [address] [address] Name: JONES MARLOW Address: [place] [address] Name: JAMES OGDEN
--- OUTSIDE RECORDS SUMMARY | 2024-01-22 07:52 | XMS_ITS | Continuity of Care Document ---
Author Organization [facility] Address [address] [place] [address]- Care Team Providers Care Drywall Foreman Name Role Phone Julio AHUMADA, Maddie Hi Primary Care Physician [phone] Encounter [facility] Date(s): 11/24/23 - 11/24/[address] [address]- Discharge Disposition: A-D/C Home Attending Physician: Ethan Vargas MD Admitting Physician: Ethan Vargas MD Referring Physician: Not on Staff, Referring [...] 08/14/23 11:58:00 EDT, Route to Pharmacy Electronically, [facility], Partial fill upon patient [...] 0 Refills, Soft Stop, 04/17/23 16:24:00 EST, [facility]/pharmacy #[id number], Partial fill upon patient request if [...] Refills, Maintenance, 06/30/22 14:02:00 EDT, REC Powder, [facility], Partial fill upon patient request if [...] opioid drug. Start Date: 04/17/23 Status: Ordered Problem List Condition Confirmation Course [...] Exam Date Time Procedure Performing Provider Status 11/24/23 7:25 AM Chest 2 Views Frontal and Lat Enid Jurado; Danya (Verified) Notes: (Chest 2 Views Frontal and Lat) Reason For Exam: Chest Pain;Other: RESULT: Chest 2 Views Frontal and Lat Chest 2 Views Frontal and Lat Hx of Present Illness: Pt reports KO, High BP and chest discomfort that has been going on for a fewweeks. Seen by PCP and told to go to ER if S S persist. Recent increase to BP meds; Reason: Other:;Chest Pain; Clinical Question(s): Other: / Other: COMPARISON: 12/24/2018 FINDINGS: LINES AND TUBES: None. LUNGS AND PLEURA: Clear lungs. Normal pulmonary vascularity. No pleural effusion. No pneumothorax. HEART, MEDIASTINUM AND JUAQUIN: Heart is normal in size. Normal mediastinal and hilar contour. BONES AND SOFT TISSUES: No acute abnormality. IMPRESSION: No evidence of acute abnormality. WSN: [id number] Ordering Physician: Jolie Melendez Dictated By: Juan Ray MD Dictated Date/Time: 11/24/23 7:27 am Reviewed By: Juan Ray MD Signed By: Juan Ray MD Signed Date/Time: 11/24/23 7:27 am Transcribed By: VASU Transcribed Date/Time: 11/24/23 7:27 am Vital Signs Most recent to oldest [Reference Range]: 1 2 Height 160 cm (11/24/23 7:24 AM) 160 cm (11/24/23 7:04 AM) Weight 106.3 kg (11/24/23 7:04 AM) Oxygen Saturation [94-100 %] 98 % (11/24/23 9:32 AM) 98 % (11/24/23 7:24 AM) Pulse Rate [55-90 bpm] 75 bpm (11/24/23 9:32 AM) 85 bpm (11/24/23 7:24 AM) Blood Pressure [90-138/55-84 mm Hg] 138/ 98mm Hg (11/24/23 9:32 AM) 123/94mm Hg (11/24/23 7:24 AM) Respiratory Rate [16-30 br/min] 18 br/mi n (11/24/23 9:32 AM) 18 br/min (11/24/23 7:24 AM) Temperature [96.8-100.4 DegF] 97.8 DegF (11/24/23 7:24 AM) Mode of Delivery (Oxygen) Room air (11/24/23 9:32 AM) Room air (11/24/23 7:24 AM) Blood pressure sites Arm, left (11/24/23 9:32 AM) Arm, right (11/24/23 7:24 AM) Temperature Route Temporal (11/24/23 7:24 AM) Dry Weight 106.3 kg (11/24/23 7:04 AM) Social History Social History Type Response Tobacco Other: Quit 3 weeks ago.. Sex Implantable Device List Procedure Provider Procedure Date Device Type Site Transvaginal Tape Cysto Fadia Byrd MD 06/30/22 Unk nown Urethra Device Identifier Serial Number Lot or Batch Number Manufacturing Date Expiration Date Distinct Identification Code MRI Safety Implantable Status Assigning Authority Unknown Unknown [id number] Unknown 06/04/25 Unknown Unknown Active Unknown Note * Yoli Charles: PERFORM Event Display: Patient Education Leaflets Authored Date: Uncertain Causes of Chest Pain ?? [id number] Uncertain Causes of Chest Pain Chest pain can happen for a number of reasons. Sometimes the cause can't be determined. If your??condition does not seem serious, and your pain does not appear to be coming from your heart, your healthcare provider may recommend watching it closely. Sometimes the signs of a serious problem take more time to appear. Many problems not related to your heart can cause chest pain. These include: ??? Musculoskeletal. Costochondritis is an inflammation of the tissues around the ribs that can occur from trauma or overuse injuries, or a strain of the muscles of the chest wall. ??? Respiratory. Pneumonia, collapsed lung (pneumothorax), or inflammation of the lining of the chest and lungs (pleurisy). ??? Gastrointestinal. Esophageal reflux, heartburn, ulcers, or gallbladder disease. ??? Anxiety and panic disorders ??? Nerve compression and inflammation ??? Rare problems such as aortic aneurysm or aortic dissection (a swelling of the large artery coming out of the heart or a tear in the wall of the artery), or pulmonary embolism (a blood clot in the lungs). Home care After your visit, follow these recommendations: ??? Rest today and avoid strenuous activity. ??? Take any prescribed medicine as directed. ??? Be aware of any recurrent chest pain and notice any changes ?? Follow-up care Follow up with your healthcare provider if you don't start to feel better within 24 hours, or as advised. ?? Call 911 Call 911 if any of these occur: ??? A change in the type of pain: if it feels different, becomes more severe, lasts longer, or begins to spread into your shoulder, arm, neck, jaw or back ??? Shortness of breath or increased pain with breathing ??? Weakness, dizziness, or fainting ??? Rapid heartbeat ??? Crushing sensation in your chest ??? Coughing up more than a small amount of blood. ?? When to seek medical advice Call your healthcare provider right away if any of the following occur: ??? Cough with dark coloredsputum (phlegm) or small amount of blood ??? Fever of 100.4??F??(38??C) or higher, or as directed by your healthcare provider ??? Swelling, pain or redness in one leg ?? Last Reviewed Date: 2021 ?? 0457-5121 [employer]. All rights reserved. This information is not intended as a substitute for professional medical care. Always follow your healthcare professional's instructions. ?? * Yoli Charles: PERFORM Event Display: Patient Education Leaflets Authored Date: [id number] Established High Blood Pressure ?? [id number] Established High Blood Pressure High blood pressure (hypertension) is a long-term (chronic) disease. Often healthcare providers don???t know what causes it. But it can be caused by certain health conditions and medicines. If you have high blood pressure, you may not have any symptoms. If you do have symptoms, they may include: ??? Headache ??? Dizziness ??? Changes in your vision ??? Chest pain ??? Shortness of breath But even without symptoms, high blood pressure that???s not treated raises your risk for heart attack, heart failure, kidney disease, and stroke. High blood pressure is a serious health risk and shouldn???t be ignored. Blood pressure measurements are given as 2 numbers. Systolic blood pressure is the upper number. This is the pressure when the heart contracts. Diastolic blood pressure is the lower number. This is the pressure when the heart relaxes between beats. You will see your blood pressure readings written together. For example, a person with a systolic pressure of 118 and a diastolic pressure of 78 will have 118/78 written in the medical record. Blood pressure is classified as normal, raised (elevated) or stage 1 or stage 2 high blood pressure: ??? Normal blood pressure. Systolic of less than 120 and diastolic of less than 80 (120/80). ??? Elevated blood pressure. Systolic of 120 to 129 and diastolic less than 80. ??? Stage 1 high blood pressure. Systolic is 130 to 139 or diastolic between 80 to 89. ??? Stage 2 high blood pressure. Systolic is 140 or higher or the diastolic is 90 or higher. Home care If you have high blood pressure, follow these home care guidelines to help lower your blood pressure. If you are taking medicines for high blood pressure, these methods may reduce or end your need for medicines in the future. ??? Start a weight-loss program if you are overweight. ??? Cut back on how much salt you get in your diet. Here???s how to do this: o Don???t eat foods that have a lot of salt. These include olives, pickles, smoked meats, and salted potato chips. o Don???t add salt to your food at the table. o Use only small amounts of salt when cooking. ??? Start an exercise program. Talk with your healthcare provider about the type of exercise program that would be best for you. It doesn't have to be hard. Even brisk walking for 20 minutes 3 times a week is a good form of exercise. ??? Don???t take medicines that stimulate the heart. This includes many tywe-lmm-hfuzyqv cold and sinus decongestant pills and sprays, as well as diet pills. Check the warnings about high blood pressure on the label. Before buying any qake-njx-ilooils medicines or supplements, always ask the pharmacist about the product's possible interaction with your high blood pressure and your high blood pressure medicines. ??? Stimulants such as amphetamine or cocaine could be deadly for someone with high blood pressure. Never takethese. ??? Limit how much caffeine you get in your diet. Switch to caffeine-free products. ??? Stopsmoking. If you are a long-time smoker, this can be hard. Talk with your healthcare provider about medicines and nicotine replacement options to help you. Also join a stop-smoking program. This makesit more likely that you will quit for good. ??? Learn how to handle stress. This is an important part of any program to lower blood pressure. Learn about relaxation methods such as meditation, yoga, or biofeedback. ??? If your provider prescribed medicines, take them exactly as directed. Missing doses may cause your blood pressure to get out of control. ??? If you miss a dose, check with your healthcare provider or pharmacist about what to do. ??? Think about buying an automatic blood pressure machine to check your blood pressure at home. Ask your provider for a recommendation. You can get one of these at most pharmacies. Using a home blood pressure monitor The [place] [employer] advises the following guidelines for home blood pressure monitoring:??? Don't smoke or drink coffee for 30 minutes before taking your blood pressure. ??? Go to the bathroom before the test. ??? Relax for at least 5 minutes before taking the measurement. ??? Sit with your back supported (don't sit on a couch or soft chair). Keep your feet on the floor uncrossed. Place your arm on a solid flat surface (such as a table) with the upper part of the arm at heart level.Place the middle of the cuff directly above the bend of the elbow. Check the monitor's instruction manual for an illustration. ??? Take multiple readings. When you measure, take 2 to 3 readings one minute apart and record all of the results. ??? Take your blood pressure at the same time every day, or as your healthcare provider advises. ??? Record the date, time, and blood pressure reading. ??? Take the record with you to your next healthcare appointment. If your blood pressure monitor has a built-in memory, just take the monitor with you to your next appointment. ??? Call your provider if you have several high readings. Don't be frightened by one high blood pressure reading. But if you geta few high readings, check in with your healthcare provider. ?? Follow-up care You will need to see your healthcare provider regularly. This is to check your blood pressure and to make changes to your medicines. Make a follow-up appointment as directed. Bring the record of yourhome blood pressure readings to the appointment. ?? Call 911 Call 911 if you have any of these: ??? Blood pressure of 180/120 or higher and any other symptoms linked to organ damage. These include: o Unusual chest pain or shortness of breath o Weakness of an arm or leg or one side of the face oProblems speaking or seeing o Severe headache o Sudden severe pain in your belly (abdomen) or back o Extreme drowsiness, confusion, or fainting o Passing out or seizures o Severe dizziness or spinning feeling (vertigo) that doesn't go away ?? When to get medical advice Call your healthcare provider right away if any of these occur: ??? Blood pressure of 180/120 or higher, without other symptoms ??? Throbbing or rushing sound in the ears ??? Nosebleed ??? Mild or intermittent dizziness or spinning feeling (vertigo) ?? Last Reviewed Date: 2021 ?? [id number] [employer]. All rights reserved. This information is not intended as a substitute for professional medical care. Always follow your healthcare professional's instructions. ?? Patient Care team information Care Team Personnel Name: Sharmaine Hunt RN Position: [facility] RN Member Role: Primary Care Nurse Name: Cait Rodriguez RN Position: [facility] RN Member Role: Primary Care Nurse Name: Rosa Isela Willis RN Position: [facility] RN Member Role: Primary Care Nurse Name: Dinah Rosas RN Position: [facility] RN Member Role: Primary Care Nurse Name: Sage Porter RN Position: [facility] RN Member Role: Primary Care Nurse Name: Soha James RN Position: [facility] RN Member Role: Primary Care Nurse Name: Yvonne Armstrong RN Position: [facility] JOHN Nurse Member Role: Primary Care Nurse Name: Maddie Kim MD Position: [facility] Physician - Primary Care Member Role: PCP Address: Address: [address] [place] [address], [address] Name: Dinah Cid RN Position: S RN Member Role: Primary Care Nurse Name: Saniya Colon RN Position: [facility] RN Member Role: Primary Care Nurse Name: Samreen Cole RN Position: [facility] Locomotive Operator Member Role: Primary Care Nurse Name: Stella Dent RN Position: [facility] RN Member Role: Primary Care Nurse Name: Marilynn Galvin RN Position: [facility] RN Member Role: Primary Care Nurse Name: Elva Ornelas RN Position: [facility] Locomotive Operator Member Role: Primary Care Nurse Name: Enriqueta Phan RN Position: [facility] RN Member Role: Primary Care Nurse Care Team Related Persons Name: RYANNE CLANCY Address: home [address] [place] [address] Name: FARIBA MARLOW Address: home [address] [place] [address] Name: JONES MARLOW Address: home [address] [place] [address] Name: JAMES OGDEN
--- OUTSIDE RECORDS SUMMARY | 2024-01-22 07:52 | XMS_ITS | Continuity of Care Document ---
Author Organization [facility] Address [address] [facility], [address] Floor, [address] [place] [address]- Care Team Providers Care Digital Intern Name Role Phone Maddie Kim MD Primary Care Physician [phone] [facility] [facility] [address] [facility], [address] Floor, [address] [place] [id number] Attending Physician: Beny BORGES, Leslie Diggs Admitting Physician: Beny BORGES, Leslie Diggs Referring Physician: Maddie Kim MD Allergies, Adverse [...] 0 Refills, Maintenance, 03/10/22 9:59:00 EST, Capsule, [facility], Partial fill upon patient [...] Refills, Maintenance, 06/30/22 14:02:00 EDT, REC Powder, [facility], Partial fill upon patient request if [...] 06/30/22 14:02:00 EDT, Route to Pharmacy Electronically, [facility], Partialfill upon patient request [...] 0 Refills, Maintenance, 06/30/22 14:02:00 EDT, Capsule, [facility], Partial fill upon patient [...] Safety Implantable Status Assigning Authority Unknown Unknown [id number] Unknown 06/04/25 Unknown Unknown Active Unknown Patient Care team information Care Team Personnel Name: Sharmaine Hunt RN Position: [facility] RN Member Role: Primary Care Nurse Name: Cait Rodriguez RN Position: [facility] RN Member Role: Primary Care Nurse Name: Rosa Isela Willis RN Position: [facility] RN Member Role: Primary Care Nurse Name: Dinah Rosas RN Position: [facility] RN Member Role: Primary Care Nurse Name: Sage Porter RN Position: [facility] RN Member Role: Primary Care Nurse Name: Soha James RN Position: [facility] RN Member Role: Primary Care Nurse Name: Yvonne Armstrong RN Position: [facility] AMB Nurse Member Role: Primary Care Nurse Name: Maddie Kim MD Position: [facility] Physician - Primary Care Member Role: PCP Address: Address: [address] [place] [address], [address] Name: Dinah Cid RN Position: [facility] RN Member Role: Primary Care Nurse Name: Samreen Cole RN Position: [facility] Rejoiner Member Role: Primary Care Nurse Name: Cornelio Fofana RN Position: [facility] RN Yadi Member Role: Primary Care Nurse Name: Stella Dent RN Position: [facility] RN Member Role: Primary Care Nurse Name: Marilynn Galvin RN Position: [facility] RN Member Role: Primary Care Nurse Name: Elva Ornelas RN Position: [facility] Rejoiner Member Role: Primary Care Nurse Name: Enriqueta Phan RN Position: [facility] Rejoiner Member Role: Primary Care Nurse Care Team Related Persons Name: RYANNE CLANCY Address: home [address] [facility] [address] [place] [address] Name: FARIBA MARLOW Address: [address] [place] [address] Name: JONES MARLOW Address: [address] [place] [address] Name: JAMES OGDEN
--- OUTSIDE RECORDS SUMMARY | 2024-01-22 07:52 | XMS_ITS | Continuity of Care Document ---
Author Organization [facility] Address [address] [place] [address]- Care Team Providers Care Mixing Machine Attendant Name Role Phone Julio AHUMADA, Maddie Hi Primary Care Physician [phone] [place] [facility] [place] 07/27/23 - 08/26/23 [facility] [address] [place] [address]- Attending Physician: Marvin Chaudhari Admitting Physician: Marvin [...] 08/14/23 11:58:00 EDT, Route to Pharmacy Electronically, [facility], [...] Refills, Soft Stop, 04/17/23 16:24:00 EST, [facility] #1230, Partial fill upon patient request [...] Refills, Maintenance, 06/30/22 14:02:00 EDT, REC Powder, [facility], Partial [...] 04/17/23 Status: Ordered Tylenol 325 mg oral tablet 975 mg, By Mouth, Every 6 hours, # 100 tablet, Refills 0, Tot. Refills 0, Acute 09/04/23 11:57:00 EDT, 08/14/23 11:56:00 EDT, Route to Pharmacy Electronically, [facility], Partial [...] Safety Implantable Status Assigning Authority Unknown Unknown [id number] 2 Unknown 06/04/25 Unknown Unknown Active Unknown Patient Care team information Care Team Personnel Name: Sharmaine Hunt RN Position: [facility] RN Member Role: Primary Care Nurse Name: Cait Rodriguez RN Position: [facility] RN Member Role: Primary Care Nurse Name: Rosa Isela Willis RN Position: [facility] SN RN Member Role: Primary Care Nurse Name: Dinah Rosas RN Position: [facility] RN Member Role: Primary Care Nurse Name: Sage Porter RN Position: [facility] RN Member Role: Primary Care Nurse Name: Soha James RN Position: [facility] RN Member Role: Primary Care Nurse Name: Yvonne Armstrong RN Position: [facility] AMB Nurse Member Role: Primary Care Nurse Name: Maddie Kim MD Position: [facility] Physician - Primary Care Member Role: PCP Address: Address: [address] [place] [address], 1st [place], [place] [address] Name: Dinah Cid RN Position: [facility] RN Member Role: Primary Care Nurse Name: Saniya Colon RN Position: [facility] RN Member Role: Primary Care Nurse Name: Samreen Cole RN Position: [facility] Hospital Bean Sprout Laborer Member Role: Primary Care Nurse Name: Stella Dent RN Position: [facility] RN Member Role: Primary Care Nurse Name: Marilynn Galvin RN Position: [facility] RN Member Role: Primary Care Nurse Name: Elva Ornelas RN Position: [facility] Bean Sprout Laborer Member Role: Primary Care Nurse Name: Enriqueta Phan RN Position: [facility] Bean Sprout Laborer Member Role: Primary Care Nurse Care Team Related Persons Name: GURINDER CLANCYNY Address: home [address] [address] Name: FARIBA MARLOW Address: home [address] [place] [address] Name: JONES MARLOW Address: home [address] [place] [address] Name: JAMES OGDEN
--- OUTSIDE RECORDS SUMMARY | 2024-01-22 07:53 | XMS_ITS | Continuity of Care Document ---
Author Organization [facility] Jerzymichael del [employer] Address [address], [address] [place] [address]- Care Team Providers Care Supervisor Steel Division Name Role Phone Julio AHUMADA, Maddie Hi Primary Care Physician [id number]12[facility]21 - 02/08/22 [facility] Jerzymichael FelixFilm[facility]ves [facility] [address], [address] [place] [address]- Attending Physician: Fadia Byrd MD Admitting Physician: [...] 03/09/22 12:58:00 EST, 02/01/22 12:57:00 EST, Patch, [facility]/pharmacy #[id number], Partial fill upon patient request [...] Team Personnel Name: Sharmaine Hunt RN Position: [facility] RN Member Role: Primary Care Nurse Name: Cati Rodriguez RN Position: [facility] RN Member Role: Primary Care Nurse Name: Rosa Isela Willis RN Position: [facility] RN Member Role: Primary Care Nurse Name: Dinah Rosas RN Position: [facility] RN Member Role: Primary Care Nurse Name: Soha James RN Position: [facility] RN Member Role: Primary Care Nurse Name: Yvonne Armstrong RN Position: [facility] RN Member Role: Primary Care Nurse Name: Maddie Kim MD Position: [facility] Physician (General Medicine) Member Role: PCP Address: Address: [address] [place] [address] Name: Dinah Cid RN Position: [facility] RN Member Role: Primary Care Nurse Name: Samreen Cole RN Position: [facility] Retoucher Member Role: Primary Care Nurse Name: Cornelio Fofana RN Position: [facility] RN Suprobina Member Role: Primary Care Nurse Name: Lesly Lamb RN Position: [facility] RN Member Role: Primary Care Nurse Name: Stella Dent RN Position: [facility] RN Member Role: Primary Care Nurse Name: Marilynn Galvin RN Position: [facility] RN Member Role: Primary Care Nurse Name: Elva Ornelas RN Position: [facility] Retoucher Member Role: Primary Care Nurse Name: Enriqueta Phan RN Position: [facility] Retoucher Member Role: Primary Care Nurse Care Team Related Persons Name: RYANNE CLANCY Address: home [address] [place] [address] Name: FARIBA MARLOW Address: home [address] [place] [address] Name: JONES MARLOW Address: home [address] [place] [address] Name: JAMES OGDEN
--- OUTSIDE RECORDS SUMMARY | 2024-01-22 07:53 | XMS_ITS | Continuity of Care Document ---
Author Organization [facility] Jerzy owens [facility] Address [address], [address] [place] [address]- Care Team Providers Care Plant Technician Name Role Phone Not on Staff, PCP Primary Care Physician Unavail able Encounter [facility] Date(s): 04/14/21 - 07/08/21 [facility] Jerzy FelixBackands [facility] [address], [address] [place] [address]- Attending Physician: Fadia Byrd MD Admitting Physician: [...] 01/09/19 9:44:56 EST, Route to Pharmacy Electronically, NCPDP_[id number], [facility] [address] Start Date: 01/09/19 [...] 01/09/19 9:55:33 EST, Route to Pharmacy Electronically, NCP[facility][id number], [facility] [address] Start Date: 01/09/19 Status: Ordered hydrOXYzine [...] Replace Required Details, Route to Pharmacy Electronically, NCPDP_[id number], [facility] Start Date: 01/09/19 Status: Ordered [...] 01/09/19 9:49:50 EST, Route to Pharmacy Electronically, NCPDP_[id number], [facility] [address] Start Date: 01/09/19 Status: Ordered Problem [...]
--- OUTSIDE RECORDS SUMMARY | 2024-01-22 07:53 | XMS_ITS | Continuity of Care Document ---
Author Organization [facility] Address [address] [place] [address] [address] [place] [address]- Care Team Providers Care Hand Striper Name Role Phone Maddie Kim MD Primary Care Physician Encounter [facility] Date(s): 09/18/22 - 11/23/[address] [place] [address]- Attending Physician: Gulshan Ho MD Referring Physician: [...] Powder, [facility], Partial fill upon patient request if [...] Safety Implantable Status Assigning Authority Unknown Unknown [id number] 2 Unknown 06/04/25 Unknown Unknown Active Unknown Patient Care team information Care Team Personnel Name: Sharmaine Hunt RN Position: [facility] RN Member Role: Primary Care Nurse Name: Cait Rodriguez RN Position: [facility] RN Member Role: Primary Care Nurse Name: Rosa Isela Willis RN Position: [facility] RN Member Role: Primary Care Nurse Name: Dinah Rosas RN Position: [facility] RN Member Role: Primary Care Nurse Name: Sage Porter RN Position: [facility] RN Member Role: Primary Care Nurse Name: Soha James RN Position: [facility] RN Member Role: Primary Care Nurse Name: Yvonne Armstrong RN Position: [facility] AMB Nurse Member Role: Primary Care Nurse Name: Maddie Kim MD Position: [facility] Physician - Primary Care Member Role: PCP Address: Address: [address] [place] [address], [address] [place] [id number] Name: Dinah Cid RN Position: [facility] RN Member Role: Primary Care Nurse Name: Samreen Cole RN Position: [facility] Lehr Stripper Member Role: Primary Care Nurse Name: Stella Dent RN Position: [facility] RN Member Role: Primary Care Nurse Name: Marilynn Galvin RN Position: [facility] RN Member Role: Primary Care Nurse Name: Elva Ornelas RN Position: [facility] Le[facility] Stripper Member Role: Primary Care Nurse Name: Enriqueta Phan RN Position: [facility] Le[facility] Stripper Member Role: Primary Care Nurse Care Team Related Persons Name: RYANNE CLANCY Address: home [address] [address] Name: FARIBA MARLOW Address: [address] [place] [address] Name: JONSE MARLOW Address: [address] [place] [address] Name: JAMES OGDEN
--- OUTSIDE RECORDS SUMMARY | 2024-01-22 07:53 | XMS_ITS | Continuity of Care Document ---
Author Organization [facility] Deb del [facility]oWh[facility] Address [address] [place] [address], [address] [place] [address]- Care Team Providers Care Geophysical Prospecting Permit Agent Name Role Phone Not on Staff, PCP Primary Care Physician Unavail able [place] [facility] [place] 10/07[place]21 - 12/17/21 [facility] Jerzymichael FelixWhittls [facility] [address], [address] [place] [address]- Attending Physician: Carson AHUMADA, Fadia Bedoya Allergies, Adverse Reactions, Alerts Substance Reaction Severity [...]
--- OUTSIDE RECORDS SUMMARY | 2024-01-22 07:53 | XMS_ITS | Patient Health Record ---
Author [facility] Address [address] [place] [address] Care Team Providers Care Transitional Kindergarten Teacher Name Role Phone Maya Wu Primary Care Provider Reshma Sky Unavailable [phone] Allergies Allergen (clinical drug ingredient) Drug/Non Drug Allergy documented on EMR Reaction Allergy Type Onset Date Status Substance with penicillin structure and antibacterial mechanism of action (substance) Penicillins rash Drug Allergy Active Reason For Referral No Information Medications Medication SIG (Take, Route, Frequency, Duration) Notes Start Date End Date Status Gabapentin 300 MG 1 capsule Orally Onc e a day for 30 day(s) Active Levothyroxine Sodium 25 MCG 1 tablet in the morning on an empty stomach Orally Once a day for 30 day(s) Active Lisinopril 5 MG 1 tablet Orally Once a day for 30 day(s) Active Bactrim DS 800-160 MG 1 tablet Orally ev mary 12 hrs for 3 days 06/06/2022 Active Omeprazole 20 MG 1 capsule 30 minutes before morning meal Orally Once a day for 30 day(s) Active Depakote Active LamISIL 250 MG 1 tablet Orally Once a day for 30 days Active CeleBREX 200 MG 1 capsule with food Orally Once a day for 30 day(s) Active Prazosin HCl 5 MG 1 capsule at bedtime Orally Once a day for 30 day(s) Active Social History Tobacco Use: Social History Observation Description Date Details (start date - stop date) Current Smoker NA - NA Tobacco Use/Smoking Question Answer Notes Are you a: current smoker Additional Findings: Tobacco Non-User Current no n-smoker Alcohol Screen Question Answer Notes Did you have a drink containing alcohol in the p ast year? No Points 0 Interpretation Negative Tobacco use other than smoking: Question Answer Notes Are you an other tobacco user? Yes V aping Plan Of Treatment Pending Test Test Name Order Date *Liver Function Test (LFT) 06/06/2022 Insurance Providers Payer Name Payer Address Payer Phone Subscriber Number Group Number Insured Name Patient Relationship to Insured Coverage Start Date Coverage End Date [facility] [employer] Claims [address] [place] [id number] Atiya Esparza Self - patient is the insured Medical (General) History Medical History History ICD Code Anxiety Arthritis Back,Hip,and Knee pain Depression Gall bladder problems High blood pressure Reflux ( GERD) thyroid ulcer Chicken pox Joint implants/screws Surgical History Surgery Date(Month/Year) gastric bypass 2009 bowel obstruction 2018 Right knee replacement 03/13
--- OUTSIDE RECORDS SUMMARY | 2024-01-22 07:53 | XMS_ITS | Continuity of Care Document ---
Author Organization [facility] Address [address] [place] [address]- Care Team Providers Care Surfboard Maker Name Role Phone Julio AHUMADA, Maddie Hi Primary Care Physician [phone] Encounter [facility] Date(s): 07/27/23 - 08/03/23 [facility] [address] [place], [place] [address] Attending Physician: Chencho Caldwell MD Referring Physician: Maame Cota MD Allergies, [...] EST, Height, 106, kg, ... Start Date: 2/27/24 Status: Ordered gabapentin 300 mg oral capsule [...] Refills, Maintenance, 06/30/22 14:02:00 EDT, REC Powder, [facility], Partial fill upon patient request if [...] 0 Refills, Maintenance, 06/30/22 14:02:00 EDT, Capsule, [facility], Partial fill upon patient [...] Active Vitamin D deficiency Confirmed 08/23/09 Active Procedures Procedure Date Related Diagnosis Body Site Status Arthroplasty of right knee Completed Vital Signs Most recent to oldest [Reference Range]: 1 Height 158 cm (07/27/23 8:57 AM) Weight 106.7 kg (07/27/23 8:57 AM) Oxygen Saturation [94-100 %] 99 % (07/27/23 8:57 AM) Pulse Rate [55-90 bpm] 64 bpm (07/27/23 8:57 AM) Body Mass Index [18.5-24.99 kg/m2] 42.74 kg/m2 *>HHI* (07/27/23 8:57 AM) Blood Pressure [90-138/55-84 mm Hg] 138/ 80mm Hg (07/27/23 8:57 AM) Respiratory Rate [16-30 br/min] 18 br/mi n (07/27/23 8:57 AM) Mode of Delivery (Oxygen) Room air (07/27/23 8:57 AM) Weight Obtained Via Standing scale (07/27/23 8:57 AM) Social History Social History Type Response Tobacco Other: Quit 3 weeks ago.. Sex Implantable Device List Procedure Provider Procedure Date Device Type Site Transvaginal Tape Cysto Fadia Byrd MD 06/30/22 Unk nown Urethra Device Identifier Serial Number Lot or Batch Number Manufacturing Date Expiration Date Distinct Identification Code MRI Safety Implantable Status Assigning Authority Unknown Unknown [id number] Unknown 06/04/25 Unknown Unknown Active Unknown Patient Care team information Care Team Personnel Name: Sharmaine Hunt RN Position: [facility] RN Member Role: Primary Care Nurse Name: Cait Rodriguez RN Position: [facility] RN Member Role: Primary Care Nurse Name: Rosa Isela Willis RN Position: [facility] RN Member Role: Primary Care Nurse Name: Dinah Rosas RN Position: [facility] RN Member Role: Primary Care Nurse Name: Sage Porter RN Position: [facility] RN Member Role: Primary Care Nurse Name: Soha James RN Position: [facility] RN Member Role: Primary Care Nurse Name: Yvonne Armstrong RN Position: [facility] AMB Nurse Member Role: Primary Care Nurse Name: Maddie Kim MD Position: [facility] Physician - Primary Care Member Role: PCP Address: Address: [address] [place] [address], [address] Name: Dinah Cid RN Position: [facility] RN Member Role: Primary Care Nurse Name: Samreen Cole RN Position: [facility] Hospital First Line Supervisor Member Role: Primary Care Nurse Name: Stella Dent RN Position: [facility] RN Member Role: Primary Care Nurse Name: Marilynn Galvin RN Position: [facility] RN Member Role: Primary Care Nurse Name: Elva Ornelas RN Position: [facility] Supervisor Member Role: Primary Care Nurse Name: Enriqueta Phan RN Position: [facility] Supervisor Member Role: Primary Care Nurse Care Team Related Persons Name: RYANNE CLANCY Address: home [address] [address] Name: FARIBA MARLOW Address: home [address] [place] [address] Name: JONES MARLOW Address: home [address] [place] [id number] Name: JAMES OGDEN
--- OUTSIDE RECORDS SUMMARY | 2024-01-22 07:53 | XMS_ITS | Continuity of Care Document ---
Author Organization [facility] Jerzy del [employer] Address [address], [address] [place] [address]- Care Team Providers Care Transfer Table Operator Name Role Phone Julio AHUMADA, Maddie Hi Primary Care Physician [phone] Encounter [id number] Date(s): 01/25/22 - 02/25/22 [facility] Jerzymichael FelixInformaats [facility] [address], [address] [place] [address]- Attending Physician: Fadia Byrd MD Admitting Physician: Fadia Byrd MD Referring Physician: Maddie Kim MD Allergies, [...] 03/09/22 12:58:00 EST, 02/01/22 12:57:00 EST, Patch, [facility]/pharmacy #1230, Partial fill upon patient request if [...] Medicine) Member Role: PCP Address: Address: [address] [place] [address] Name: Dinah Cid RN Position: [facility] RN W/OE and Tasks Member Role: Primary Care Nurse Name: Samreen Cole RN Position: [facility] Digital Marketing Member Role: Primary Care Nurse Name: Cornelio Fofana RN Position: [facility] RN Supv Member Role: Primary Care Nurse Name: Lesly Lamb RN Position: [facility] RN Member Role: Primary Care Nurse Name: Stella Dent RN Position: [facility] RN Member Role: Primary Care Nurse Name: Marilynn Galvin RN Position: [facility] RN Member Role: Primary Care Nurse Name: Elva Ornelas RN Position: [facility] [employer] Member Role: Primary Care Nurse Name: Enriqueta Phan RN Position: [facility] [employer] Member Role: Primary Care Nurse Care Team Related Persons Name: RYANNE CLANCY Address: home [address] [place] [address] Name: FARIBA MARLOW Address: [address] [place] [address] Name: JONES MARLOW Address: [address] [place] [address] Name: JAMES OGDEN
--- OUTSIDE RECORDS SUMMARY | 2024-01-22 07:53 | XMS_ITS | Continuity of Care Document ---
Author Organization [facility] Jerzy owens [facility] Address [address], [address] [place] [address]- Care Team Providers Care Donor Relations Manager Name Role Phone Not on Staff, PCP Primary Care Physician Unavail able Encounter [facility] Date(s): 10/07/21 - 12/07/21 [facility] Jerzy Beckers [facility] [address] [facility], [address] [place] [address]- Attending Physician: Fadia Byrd MD Admitting Physician: [...]
--- OUTSIDE RECORDS SUMMARY | 2024-01-22 07:53 | XMS_ITS | Continuity of Care Document ---
Author Organization [facility] Address [address] [place] [address] [address] [place] [address]- Care Team Providers Care Patient Account Liaison Name Role Phone Not on Staff, PCP Primary Care Physician Unavail able [place] [facility] [place] 10/13/21 - 12/11/[address] [place] [address]- Attending Physician: Vic Troy Referring Physician: Not on Staff, Referring MD [...]
--- OUTSIDE RECORDS SUMMARY | 2024-01-22 07:53 | XMS_ITS | Continuity of Care Document ---
Author Organization [facility] [place] [facility] Address [address], [address] [place] [address]- Care Team Providers Care Ocular Care Aide Name Role Phone Julio AHUMADA, Maddie Hi Primary Care [id number] Date(s): 12/12/21 - 01/22/22 [facility] [address] [place], [place] [address] Attending Physician: Fadia Byrd [...] Team Personnel Name: Sharmaine Hunt RN Position: [facility] RN Member Role: Primary Care Nurse Name: Cait Rodriguez RN Position: S RN Member Role: Primary Care Nurse Name: Rosa Isela Willis RN Position: [facility] SN RN Member Role: Primary Care Nurse Name: Dinah Rosas RN Position: [facility] RN Member Role: Primary Care Nurse Name: Soha James RN Position: [facility] RN Member Role: Primary Care Nurse Name: Yvonne Armstrong RN Position: [facility] AMB Nurse Member Role: Primary Care Nurse Name: Maddie Kim MD Position: [facility] Physician (General Medicine) Member Role: PCP Address: Address: [address] [place] [address] Name: Dinah Cid RN Position: [facility] ED RN W/OE and Tasks Member Role: Primary Care Nurse Name: Samreen Cole RN Position: [facility] Votator Machine Operator Member Role: Primary Care Nurse Name: Cornelio Fofana RN Position: [facility] RN Supv Member Role: Primary Care Nurse Name: Lesly Lamb RN Position: [facility] RN Member Role: Primary Care Nurse Name: Stella Dent RN Position: [facility] RN Member Role: Primary Care Nurse Name: Marilynn Galvin RN Position: [facility] RN Member Role: Primary Care Nurse Name: Elva Ornelas RN Position: [facility] [employer]ot[employer] Machine Operator Member Role: Primary Care Nurse Name: Enriqueta Phan RN Position: [facility] Votator Machine Operator Member Role: Primary Care Nurse Care Team Related Persons Name: JULIETH RYANNE Address: home [address] [place] [address] Name: FARIBA MARLOW Address: [address] [place] [address] Name: JONES MARLOW Address: [address] [place] [address] Name: JAMES OGDEN
[2024-01-22 07:57] VITALS: BP 122/74; BMI 43.5
== END 2024-01-22 08:09 | disposition home or self-care (01) ==
LOC: HO.HWS 07:49
PROVIDERS: PCP General Practice; Visit Provider Obstetrics & Gynecology
DX: Z01.419 Encounter for gynecological examination (general) (routine) without abnormal findings (principal)
CPT/HCPCS: 99396

== ENCOUNTER → 2024-03-13 09:30 | Outpatient (BNV) | payer OTHER, SELFPAY | PROVIDERS: Visit Provider Psychiatry & Neurology Psychiatry | DX: F43.10 Post-traumatic stress disorder, unspecified (principal); F10.20 Alcohol dependence, uncomplicated; F31.30 Bipolar disorder, current episode depressed, mild or moderate severity, unspecified; F12.99 Cannabis use, unspecified with unspecified cannabis-induced disorder | CPT/HCPCS: 90792; 99214 ==

== ENCOUNTER 2024-03-21 06:10 | Outpatient (REF) | payer OTHER, SELFPAY ==
--- OUTSIDE RECORDS SUMMARY | 2024-03-21 06:12 | XMS_ITS | Encounter Summary ---
Author Organization [employer] Address [address] [place] [address] Care Team Providers Care Bonsai Culturist Name Role Phone Maddie Kim MD Primary Care Provider [phone] Encounter Details Date Type Department Care Team ([facility] st Contact Info) Description 02/22/[address] [facility] [address] [place], [place] [phone] Maddie Kim MD [address] [place], [place] [phone] Social History Tobacco Use Types Packs/Day Years Used Date Smoking Tobacco: Former Cigarettes 0.5 25.1 S tarted: 02/19/1999 Passive Smoke Exposure: Past Smokeless Tobacco: Never Alcohol Use Standard Drinks/Week Comments Not Currently 0 (1 standard drink = 0.6 oz pur e alcohol) Depression Answer Date Recorded Patient Health Questionnaire-9 Score 3 06/15/2023 Patient Health Questionnaire-9 Score 3 06/15/2023 Last PHQ-9: Questionnaire Data Not on file 0 06/15/2023 Housing Stability Answer Date Recorded What is your housing situation today? I have salome benjamin 07/06/[address] you li ve. Do you have problems with any of the following? Pests such as bugs, ants, or mice 07/06/2023 Food Insecurity Answer Date Recorded Within the past 12 months, y ou worried that your food would run out before you got money to buy more: Never True 07/06/2023 Within the past 12 months,th e food you bought just didn't last and you didn't have enough money to get more: Never True Transportation Answer Date Recorded In the past 12 months, has l ack of transportation kept you from medical appts, meetings, work or from getting things needed for daily living? No 07/06/2023 Utilities Answer Date Recorded In the past 12 months, has t he electric, gas, oil or water company threatened to shut off services in your home? No 07/06/2023 Depression Answer Date Recorded Patient Health Questionnaire-2 Score 0 06/15/2023 Comments No Sex and Gender Information Value Date Recorded Sex Assigned at Female 12/19/2021 10:17 AM EDT Legal Sex Female 10:17 AM EDT Gender Identity Female 12/19/2021 10:17 AM EDT Sexual Orientation Straight 12/19/2021 10 :17 AM EDT documented as of this encounter Miscellaneous Notes * Telephone Encounter - Stacy Encinas LPN - 02/22/2024 2:31 PM EST Triage call returned to patient who reports one week duration of burning with urination and low abdominal discomfort. No blood or pus in urine no fever. Has not taken any OTC for discomfort is takinggood amount of PO fluids. Disposition reviewed and patient in agreement with plan [facility] referral placed and address and phone confirmed at time of call. Protocol Used: Urination Pain - Female (Adult) Protocol-Based Disposition: See in Office or Video Visit Today Video visit not offered Positive Triage Question: * Painful urination AND EITHER frequency or urgency * All higher-acuity triage questions were negative Care Advice Discussed: * Drink Extra Fluids * Drink Extra Fluids - Extra Notes and Warnings * Cranberry Juice * Reasons To Call Back - Fever or back pain occurs - You become worse documented in this encounter Plan of Treatment Upcoming Encounters Date Type Department Care Team (Late st Contact Info) Description 03/28/2024 9:45 AM EST Office Visit [facility] [address] [place] [phone] Maddie Kim MD [address] [place] [address] 04/18/2024 9:[address] [facility] [address] [place] [address] Rosie Vick, RD [address] [place] [address] documented as of this encounter Visit Diagnoses Not on filedocumented in this encounter Additional Health Concerns Assessment Noted Time PHQ-9 Depression Total Score: 3 06/15/19 24 11:48 AM EDT documented as of this encounter Care Teams Bonsai Culturist Relationship Specialty Start Date End Date Maddie Kim MD [address] [place] [address] PCP - General Family Medicine 07/12/20 Willie Gage 01/17/22 documented as of this encounter
--- OUTSIDE RECORDS SUMMARY | 2024-03-21 06:12 | XMS_ITS | Encounter Summary ---
Author Organization [employer] Address [address] [place] [address] [address] [place] [address] Care Team Providers Care Community Organization Director Name Role Phone Maddie Kim MD Primary Care Provider [phone] Reason for Visit * Reason Onset Date Comments Med Refill 03/04/2024 Encounter Details Date Type Department Care Team ([facility] Contact Info) Description 03/04/2024 Refill [facility] [address] [place], [place] [phone] Maddie Kim MD [address] [place], [place] [phone] Social History Tobacco Use Types Packs/Day Years [...] encounter Miscellaneous Notes * Telephone Encounter - Maryana Mcmahon - 03/04/2024 1:53 PM EST TC from pt requesting medication refill. Medications needing refill : docusate sodium (Colace) 100 MG capsule To be sent to: [facility] [address] [place] [phone]. documented in this encounter Plan of Treatment Upcoming Encounters Date Type Department Care Team (Late st Contact Info) Description 03/28/2024 9:45 AM EST Office Visit [facility] [address] [place] [address] Maddie Kim MD [address] [place] [address] 04/18/2024 9:00 AM EST Nutrition [facility] [address] [place] [address] [place] [address] documented as of this encounter Visit Diagnoses Not on filedocumented in this encounter Additional Health Concerns Assessment Noted Time PHQ-9 Depression Total Score: 3 06/15/19 24 11:48 AM EDT documented as of this encounter Care Teams Community Organization Director Relationship Specialty Start Date End Date Maddie Kim MD [address] [place] [address] PCP - General Family Medicine 07/12/20 Willie Gage 01/17/22 documented as of this encounter
--- OUTSIDE RECORDS SUMMARY | 2024-03-21 06:12 | XMS_ITS | Encounter Summary ---
Author Organization [employer] Address [address] [place] [address] Care Team Providers Care Prefabricated Houses Trimmer Name Role Phone Maddie Kim MD Primary Care Provider [phone] Reason for Visit * Reason Onset Date Comments verbal order 03/04/2024 Encounter Details Date Type Department Care Team ([facility] Contact Info) Description 03/04/2024 Telephone [facility] [address] [place], [place] [phone] Maddie Kim MD [address] [place], [place] [phone] verbal order Social History Tobacco Use Types Packs/Day Years [...] encounter Miscellaneous Notes * Telephone Encounter - Meenakshi Garrett RN - 03/04/2024 2:28 PM EST [facility]. Verbal order given, Isabel verbalize understanding and advised to follow up with PCP office prn. * Telephone Encounter - Maryana Mcmahon - 03/04/2024 1:55 PM EST Tc from Lauren needing verbal order for medication management. documented in this encounter Plan of Treatment Upcoming Encounters Date Type Department Care Team (Late st Contact Info) Description 03/28/2024 9:45 AM EST Office Visit [facility] [address] [place] [address] Maddie Kim MD [address] [place] [address] 04/18/2024 9:00 AM EST Nutrition [facility] [address] [place] [address] [place] [address] documented as of this encounter Visit Diagnoses Not on filedocumented in this encounter Additional Health Concerns Assessment Noted Time PHQ-9 Depression Total Score: 3 06/15/19 24 11:48 AM EDT documented as of this encounter Care Teams Prefabricated Houses Trimmer Relationship Specialty Start Date End Date Maddie Kim MD [address] [place] [address] PCP - General Family Medicine 07/12/20 Willie Gage 01/17/22 documented as of this encounter
--- OUTSIDE RECORDS SUMMARY | 2024-03-21 06:12 | XMS_ITS | Clinical Summary ---
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 mediolateral oblique views along with computer-aided detection (CAD). Synthesized 2D images are generated from the tomosynthesis. FINDINGS: There are scattered areas of fibroglandular density (ACR BI-RADS breast composition Category b). There are no significant masses, abnormal calcifications, or other abnormalities. MM/MM tomosynthesis screening BI IMPRESSION: No mammographic evidence of malignancy. ASSESSMENT: BI-RADS BI-RADS 1 - Negative RECOMMENDATION: Routine annual mammography screening. Clinical follow-up of left breast pain advised. 1 year F/U This examination should not preclude the clinical evaluation of a suspicious palpable abnormality. This patient's information was entered into a reminder system with a target due date for their next mammogram. Dictated By: Teresita Bey MD Signed By: <Electronically signed by Teresita Bey MD in OV> 05/26/23 1503 DD/ 1602 TD/TT: Grants Administrator: Maddie Kim MD IMG BI PROCEDURES Final Result * HPV GENOTYPES 16,18/45 (12/20/2020 12:00 AM EDT) HPV 16 RNA NOT DETECTED NOT DETECTED [facility] HPV 18/45 RNA NOT DETECTED NOT DETECTED [facility] Comment: Methodology: Exotic Dancer Mediated Amplification The analytical performance characteristics of this assay have been determined by [facility]. The modifications have not been cleared or approved by the FDA. This assay has been validated pursuant to the CLIA regulations and is used for clinical purposes. 12/20/2020 Maddie Kim MD LAB BLOOD ORDERABLES Final Res ult [facility] [address] from Last 3 Months or Most Recently Relevant to Health Maintenance Insurance - [employer] Care Teams Ad Compositor Relationship Specialty Start Date End Date Maddie Kim MD [address] [place] [id number] PCP - General Family Medicine 07/12/20 [facility] 01/17/22
--- OUTSIDE RECORDS SUMMARY | 2024-03-21 06:12 | XMS_ITS | Encounter Summary ---
Author Organization [employer] Address [address] [place] [address] [address] [place] [address] Care Team Providers Care Mass Spec Name Role Phone Maddie Kim MD Primary Care Provider [phone] Reason for Visit * Reason Onset Date Comments FYI 02/21/2024 Encounter Details Date Type Department Care Team ([facility] Contact Info) Description 02/21/2024 Telephone [facility] MEDICINE [address] [place], [place] [phone] Maddie Kim MD [address] [place], [place] [phone] Social History Tobacco Use Types Packs/Day Years [...] encounter Miscellaneous Notes * Telephone Encounter - Sheila Rene RN - 02/22/2024 8:42 AM EST Noted. * Telephone Encounter - Elier Mckinley - 02/21/2024 1:38 PM EST Tc from Lauren with [facility] informing pt is taking over the counter medication M[place]a 2 tablets in the morning Calcium 1200mg 2x daily Hair skin nail 1x daily Seaweed vegetable complex 1 tablet daily If any questions please contact Lauren [phone] documented in this encounter Plan of Treatment Upcoming Encounters Date Type Department Care Team (Late st Contact Info) Description 03/28/2024 9:45 AM EST Office Visit [facility] MEDICINE [address] [place] [phone] Maddie Kim MD [address] [place] [address] 04/18/2024 9:00 AM EST Nutrition [facility] DIABETES/NUTRITION [address] [place] [address] [place] [address] documented as of this encounter Visit Diagnoses Not on filedocumented in this encounter Additional Health Concerns Assessment Noted Time PHQ-9 Depression Total Score: 3 06/15/19 24 11:48 AM EDT documented as of this encounter Care Teams Mass Spec Relationship Specialty Start Date End Date Maddie Kim MD [address] [place] [address] PCP - General Family Medicine 07/12/20 [facility] 01/17/22 documented as of this encounter
--- OUTSIDE RECORDS SUMMARY | 2024-03-21 06:12 | XMS_ITS | Data Portability ---
Author Organization [employer] [place] - [place] Address [address] [place] [id number] Care Team Providers Care Format Proofreader Name Role Phone HIM CCA OTHER Assessment Encounter Date Assessment Date Assessment LastModified by Organization Details LastModified Time 02/23/2024 02/23/2024 I provided real -time medical direction via phone for this encounter and was available for additional phone-based assistance as needed. I have reviewed and agree with the Assessment and Plan as documented by the Sushi Chef. Patient given the opportunity to ask questions. Patient was seen yesterday by this service and was diagnosed with a UTI. Patient has started Macrobid and taken 3 doses. The patient developed a temperature this morning and family calls to request another visit to ? e nsure antibiotics are working ? Apparently a urine culture was ordered yesterday however a sample was unable to be obtained. Discussed with family that it is likely the culture will be negative and not able to be interpreted given the fact she is already started on antibiotics. The patient is now voiding normally. Per computer numeric control setter on the scene the patient has stable vitals and is afebrile currently after taking Tylenol. Known UTI and would continue to take the antibiotic prescribed as well as Tylenol. Discussed red flags. Medic request urine culture sent to [facility]. Allergies: Reviewed Not available 02/23/2024 16:20:42 02/26/2024 02/26/2024 I have reviewed and agree with the assessment and plan as documented by the computer numeric control setter. I provided real-time medical direction for this encounter and was immediately available to provide additional phone-based assistance as needed. History as noted in EMR and by computer numeric control setter. I would add / emphasize: Patient seen for persistent URI symptoms including rhinorrhea and low-grade fevers. Being treated with Macrobid for dysuria with recent culture demonstrating no growth. Otherwise hemodynamically well/well-appearin g per report. Low-grade fever at 100.9. No abdominal pain chest pain flank pain. COVID and flu testing are negative. Will resend urine culture given persistent mild dysuria and advise close follow-up with PCP. Patient would benefit from expedited follow-up with PCP given duration of symptoms. Reviewed red flag symptoms that should prompt presentation to the ED and patient voices understanding. pallfather Not available 02/28/2024 06:38:07 Plan of Treatment Reminders Order Date Submit Date Provider Last Modified By Organization Details Last Modified Time Details Appointments None recorded. Lab culture, urine 2024 025 [facility], [address] [place], [address], 15:02:19 urinalysis , dipstick 2024 025 [facility], [address] [place] [address], [phone], 5 07:58:13 culture, urine 2024 025 [facility], [address], [place], [place], [address], 04:41:56 culture, urine 2024 025 [facility], [address] [place], [address], 08:07:59 rapid flu (A+B) 2024 025 [facility], [address] [place] [address], [phone], 5 08:13:58 rapid SARS CoV 2 Ag, QL IA, respirator y specimen 2024 025 [facility], [address] [place] [address], [phone], 08:13:39 Referral None recorded. Procedures None recorded. Surgeries None recorded. Imaging None recorded. Medication Orders Macrobid 100 mg capsule 2024 025 [facility], [address] [place], [address], 21:48:16 Macrobid 100 mg capsule [facility]24 [facility] [address] [place], [address], 22:18:22 Macrobid 100 mg capsule 2024 025 [facility], [address] [place], [address], 21:49:28 phenazopyr idine [address] [facility]1026, [address] [place], [address], 21:48:19 Patient TargetsNo targets recorded. Patient InstructionsNo instructions recorded. Reason for Referral None Reported. Results Created Date Observation Date Name Description Value Unit Range Abnormal Flag Note LastModifiedBy Organization Detail LastModifiedTime 02/22/1902/26/2024 CULTU RE, URINE , ROUTI NE culture, urine, routine SEE NOTE CULTU RE, URINE , ROUTI NE Micro Numbe r: [id number] Test Statu s: Final Speci men Sourc e: Urine Speci men Quali ty: Adequ ate Resul t: No Growt h Not Available [facility] [address], [place], [address], 02/26/2024 04:41:56 02/25/1902/29/2024 URINE CULTU RE,CO MPREH ENSIV E urine culture,comp rehensive Final report Not Available [facility] ([facility]) [address] [facility], [place], [address], 02/29/2024 10:06:00 02/25/1902/29/2024 URINE CULTU RE,CO MPREH ENSIV E result 1 COMMEN T No growt h in 36 - 48 hours . Not Available [facility] ([facility]) [address] [facility], [place], [address], 02/29/2024 10:06:00 Result Notes None recorded. Medical Equipment None Reported. Allergies Allergen ID Allergen Name Allergen Category Reaction Reaction Severity Criticality Documentation Date Start Date Code Code System Note Provider Name and Address Organization Details Recorded Time 63568 Dilantin medicatio n Not available Not available Not available 02/22/2024 0 RxNorm Not Available [facility] - production 14:48:20 35016 sulfameth oxazole medicatio n Not available Not available Not available 02/22/2024 15203 Rx[facility] Available [facility] 44599 trimethop rim medicatio n Not available Not available Not available 02/22/2024 32024 RxNorm Not Available [facility] 14:48:20 54209 Product containin g penicilli n and antibioti c (product) medicatio n Not available Not available Not available 02/22/2024 14791 05 SN[facility]ED [facility] Available [facility] 14:48[facility]20 10746 penicilli n G benzathin e medicatio n Not available Not available Not available 02/22/2024 7982 Rx[facility] Available [facility] 14:48:20 57741 penicilli n G procaine medicatio n Not available Not available Not available 02/22/2024 7983 RxNorm Not Available [facility] - production 14:48:20 Medications Name Sig Start Date Stop Date Status Note LastModified by Organization Details LastModified Time celecoxib 200 mg capsule TAKE 1 CAPSULE BY MOUTH EVERY DAY active Not Available Not Available No t Available cyclobenzapr ine 10 mg tablet TAKE 1 TABLET BY MOUTH THREE TIMES A DAY active Not Available Not Available Not Available acetaminophe n 325 mg tablet TAKE 3 TABLETS BY MOUTH EVERY 6 HOURS active Not Available Not Available No t Available tizanidine 4 mg tablet active Not Available Not Available No t Available naltrexone 50 mg tablet TAKE 1 TABLET BY MOUTH EVERY DAY active Not Available Not Available No t Available ondansetron HCl 4 mg tablet active Not Available Not Available Not Available acetaminophe n 300 mg-codeine 30 mg tablet active Not Available Not Available Not Available divalproex 500 mg tablet,delay ed release TAKE 2 TABLETS BY MOUTH TWICE A DAY active Not Available Not Available No t Available minoxidil 2.5 mg tablet TAKE 1/4 TABLET BY MOUTH DAILY active Not Available Not Available Not Available aspirin 81 mg tablet,delay ed release TAKE 1 TABLET BY MOUTH TWO TIMES A DAY FOR 14 DAYS active Not Available Not Available Not Available tramadol 50 mg tablet TAKE 1/2 TO 1 TABLET BY MOUTH EVERY 6 TO 8 HOURS NEEDED FOR MODERATE TO SEVERE PAIN active Not Available Not Available Not Available acetaminophe n 500 mg tablet active Not Available Not Available Not Available triamcinolon e acetonide 0.1 % topical cream PLEASE SEE ATTACHED FOR DETAILED DIRECTIONS active Not Available Not Available N ot Available prazosin 5 mg capsule TAKE 1 CAPSULE BY MOUTH EVERYDAY AT BEDTIME active Not Available Not Available No t Available cyanocobalam in (vit B-12) 500 mcg tablet active Not Available Not Available N ot Available nicotine (polacrilex) 4 mg gum active Not Available Not Available Not Available phenazopyrid ine 100 mg tablet Take 1 tablet 3 times a day by oral route for 3 days. 2024 active Not Available Not Available Not Avai lable baclofen 10 mg tablet active Not Available Not Available No t Available lisinopril 10 mg tablet TAKE 1 TABLET BY MOUTH EVERY DAY active Not Available Not Available No t Available nicotine 21 mg/24 hr daily transdermal patch active Not Available Not Available Not Available docusate sodium 100 mg capsule active Not Available Not Available N ot Available gabapentin 300 mg capsule TAKE 2 CAPSULES BY MOUTH 3 TIMES A DAY active Not Available Not Available Not Available omeprazole 20 mg capsule,kassandra yed release active Not Available Not Available Not Available folic acid 1 mg tablet TAKE 1 TABLET BY MOUTH EVERY DAY active Not Available Not Available No t Available lisinopril 5 mg tablet TAKE 1 TABLET BY MOUTH EVERY DAY IN THE MORNING active Not Available Not Available No t Available hydrochlorot hiazide 25 mg tablet TAKE 1 TABLET (25 MG) BY MOUTH ONCE PER DAY. active Not Available Not Available No t Available mupirocin 2 % topical ointment active Not Available Not Available Not Available epinephrine 0.3 mg/0.3 mL injection, auto-injecto r active Not Available Not Available Not Available albuterol sulfate HFA 90 mcg/actuatio n aerosol inhaler active Not Available Not Available Not Available lisinopril 40 mg tablet TAKE 1 TABLET (40 MG) BY MOUTH ONCE PER DAY. active Not Available Not Available No t Available metformin ER 500 mg tablet,exten ded release 24 hr TAKE 2 TABLETS (1,000 MG) BY MOUTH WITH EVENING MEAL. DO NOT CRUSH, CHEW, OR SPLIT. active Not Available Not Available No t Available thiamine HCl (vitamin B1) 50 mg tablet TAKE 1 TABLET BY MOUTH EVERY DAY active Not Available Not Available No t Available Laxative (bisacodyl) 5 mg tablet,delay ed release TAKE 2 TABLETS BY MOUTH AT BEDTIME active Not Available Not Available No t Available nitrofuranto in monohydrate/ macrocrystal s 100 mg capsule TAKE 1 CAPSULE BY MOUTH EVERY 12 HOURS FOR 5 DAYS active Not Available Not Available N ot Available diclofenac 1 % topical gel APPLY 1 INCH TOPICALLY IF NEEDED IN THE MORNING AND AT BEDTIME (PAIN). active Not Available Not Available No t Available Invega Sustenna 234 mg/1.5 mL intramuscula r syringe INJECT 234MG INTO THE MUSCLE ONCE A MONTH DIRECTED active Not Available Not Available No t Available Gavilax 17 gram/dose oral powder DISSOLVE 17 GRAM IN WATER AND TAKE BY MOUTH ONCE DAILY 1-3 TIMES DAILY TO PRODUCE 1 SOFT STOOL DAILY active Not Available Not Available Not Available paliperidone ER 1.5 mg tablet,exten ded release 24 hr TAKE 1 TABLET BY MOUTH EVERY DAY active Not Available Not Available No t Available Minerin lotion APPLY TOPICALLY 2-3 TIMES A DAY NEEDED FOR DRY SKIN active Not Available Not Available No t Available naloxone 4 mg/actuation nasal spray active Not Available Not Available Not Available nicotine (polacrilex) 4 mg buccal mini lozenge active Not Available Not Available Not Available Paxlovid 300 mg (150 mg x 2)-100 mg tablets in a dose pack active Not Available Not Available No t Available Vitals Date Recorded Heart rate Body temperature Respiratory rate Body weight Oxygen saturation Oxygen saturation in Arterial blood by Pulse oximetry Systolic blood pressure Diastolic blood pressure Provider Name and Address Organization Details Last Updated DateTime 5 102 /min 98.8 [degF] 14 /min 328528. 08 g 98 % 98 % 130 mm[Hg] 82 mm[Hg] Not Available [facility] 5 21:29:05 Date Recorded Oxygen saturation Oxygen saturation in Arterial blood by Pulse oximetry Body temperature Body height Respiratory rate Heart rate Body weight Systolic blood pressure Diastolic blood pressure Provider Name and Address Organization Details Last Updated DateTime 98 % 98 % 98.4 [degF] 157.48 cm 19 /min 96 /min 817089. 712 g 125 mm[Hg] 82 mm[Hg] Not Available [employer] - [facility] 14:39:11 Date Recorded Body temperature Heart rate Respiratory rate Oxygen saturation Oxygen saturation in Arterial blood by Pulse oximetry Systolic blood pressure Diastolic blood pressure Provider Name and Address Organization Details Last Updated DateTime 100.9 [degF] 90 /min 16 /min 95 % 95 % 123 mm[Hg] 85 mm[Hg] Not Available [employer] 11:22:20 Social History None recorded. Functional Status None recorded. Mental Status None recorded. Family History Nothing Reported. Medical History No medical history recorded. Gynecological HistoryNo gynecological history recorded. Obstetrics History GPAL:G 0 P 0 0 0 0 Past Encounters Encounter ID Performer Location Encounter Start Date Encounter Closed Date Diagnosis/Indication Diagnosis SNOMED-CT Code Diagnosis ICD10 Code Diagnosis Note [id number] ARIEL YAO MD [facility] [address] [place] [phone] 02/22/2024 21:29:01 02/23/2024 18:48:12 Urinary symptoms [id number] R39.9 Evaluation in the field was performed by my computer numeric control setter colleague, as noted above, I provided real-time direction and supervisio n for this visit. The evaluation revealed a 48-year-ol d female with a past medical history significan t for Bipolar Disorder, Gastroesop hageal Reflux Disease , and Hypertensi on, presenting with a 1-week history of dysuria, urinary frequency, inability to empty her bladder, and lower abdominal pain. She denies fever, chills, nausea, vomiting, lower back pain, or CVA/flank tenderness . The patient reports drinking large amounts of coffee but limited fluids. No known history of frequent UTIs. She is tolerating oral intake well. Vital Signs: Mildly tachycardi c at 102 bpm but otherwise unremarkab le. Afebrile.P hysical Exam: Mild tenderness to palpation in the lower abdomen. No lower back or CVA tenderness .Laborator y Findings: UA positive for leukocytes , nitrites, blood, and ketones.Chiki larsen: Reviewed. Impression :UTI Plan:-UA findings are consistent with a UTI. Given the lack of systemic symptoms and CVA tenderness , the diagnosis is most likely simple cystitis.- Prescripti on for Macrobid 100 mg BID for 5 days sent to the patient's pharmacy. The first dose was administer ed by the computer numeric control setter. -To alleviate the burning sensation, a prescripti on for Pyridium TID for 2 days was sent to the pharmacy.- The patient was unable to produce sufficient urine for a urine culture. She was advised to call back for a follow-up visit and urine culture if there is no improvemen t in symptoms after at least 48 hours on Macrobid.- Advised to increase oral hydration with water and cranberry juice and to decrease coffee intake.-Du e to hematuria, she will need a repeat UA after completing treatment to ensure resolution . The patient has been made aware of this need.-Red flags were discussed with the patient. Primary care, considerre peating UA after completing treatment to ensure resolution of hematuria Dispositio n: We discussed the diagnostic uncertaint y of home visits and the risk associated with this. In this case, the patient and I felt this to be an acceptable and reasonable amount of risk given the benefit of avoiding an ED visit. We discussed the need to seek care urgently/e mergently in the setting of any new or worsening serious symptoms, particular ly fever, chills, worsening abdominal pain, nausea, vomiting, lower back or flank pain or any other concerns. [id number] Fawn Coelho MD [facility] [address] [place] [phone] 02/23/2024 14:34:12 02/23/2024 18:56:04 Urinary symptoms [id number] R39.9 [id number] Aramis Gallardo MD [facility] - [facility] [address] [place] [phone] 02/26/2024 11:22:16 02/28/2024 11:56:29 Urinary symptoms [id number] R39.9 Fever [id number] R50.9 Health Concerns Section Related Observation LastModified by Organization Detai ls LastModified Time None Recorded Concern Status LastModified by Organization Details LastModified Time None Recorded Advance Directives Directive None Recorded Payers Encounter Date Sequence Insurance Name Policy Number Policy Fernandez Covered Member ID Fernandez Member ID Guarantor Name 02/22/2024 1 FORMERLY [facility] - DOS ON OR AFTER 2022 - DUAL ELIGIBLE - LONGTERM OPTIONS AND ONE CARE (MEDICARE REPLACEMENT/ADV ANTAGE - HMO) Atiya Mauri [id number] Atiya Frost Mauri 02/23/2024 1 FORMERLY [facility] - DOS ON OR AFTER 2022 - DUAL ELIGIBLE - LONGTERM OPTIONS AND ONE CARE (MEDICARE REPLACEMENT/ADV ANTAGE - HMO) Atiya Dotson [id number] Atiya Abisai Mauri 02/26/2024 1 FORMERLY [facility] - DOS ON OR AFTER 2022 - DUAL ELIGIBLE - LONGTERM OPTIONS AND ONE CARE (MEDICARE REPLACEMENT/ADV ANTAGE - HMO) Atiya Mauri [id number] Atiya Y Mauri Notes Date Note Type Note Provider Name and Address Organization Details Recorded Time 02/22/2024 text/html HPI: Patient with one week history of urinary pain burning and lower abdominal discomfort. ...................... ...................... ...................... ...................... ...................... ...................... ......... [facility] Nurse Triage Notes (Tami Ambriz - RN): Chief Complaints: Urinary symptoms PMH: Bipolar Disorder, Gastroesophageal Reflux Disease (GERD), Hypertension Comments: [facility] RN did not require any additional information to process this visit. Sushi Chef Organization Information for [employer] Legal Name: [employer] Address: [address] [place] [address], [place] [address], [employer] Pens Assembler: Benjy COLON No.: [id number] Sushi Chef POC Test Results from [facility] - HILDA Urine Dipstick (21:31:12) Urine leukocytes: 125+++ LEXIE Urine nitrites: + NIT Urine urobilinogen: - URO Urine protein: 3o+ PRO Urine pH: 6.5 pH Urine blood: +++ BLO Urine specific gravity: 1.015 SG Urine ketones: 5+ KET Urine bilirubin: 1+ MARCEL Urine glucose: - GLU Attachments uploaded as part of this test result can be found under Documents section. ...................... ...................... ...................... ...................... ...................... ...................... ......... Sushi Chef Note From [facility]: Disp for the 48 year old female cc UTI symptoms. Upon arrival patient found MORRIS x 4 GCS x 15 speaking in full sentences with ease, skin pink/warm/dry, strong radial pulse. Patient denies chest pain, denies shortness of breath, complains of lower abdominal pain, denies back/flank pain, denies n/v/d, denies recent fevers. Patient complains of pain with urination, urgency and frequent small amounts of urination. Patient denies blood in urine. Patient states she's had decreased fluid intake and drinks primarily coffee. Patient denies pain with palpation to bilateral flanks. Patient has been taking 1 gram of tylenol for pain with urination with little to no relief. Vitals obtained as stated above. + PERRL, good cap refills, skin pink/warm/dry, strong radial pulse, - FAST-ED. Urine sample obtained and uploaded. Patient was not able to urinate enough for a culture sample. Consulted with [facility] Dr. Yao. Dr. Yao confirmed UTI with urine dipstick results. Dr. Yao ordered 100mgs of Macrobid PO. Dr. Yao sent antibiotic and Pyridium to pharmacy. Dr. Yao advised patient to stop drinking caffeine and increase fluids as much as possible. Dr. Yao advised patient if UTI symptoms do not improved on antibiotic in one to two days, schedule another appointment with [facility] for urine culture. Patient understood. Patient administered 100mgs of macrobid PO. Patient educated on red flags/risk factors. All times approx.. ...................... ...................... ...................... ...................... ...................... ...................... ......... [facility] Consulted: Ariel Yao ...................... ...................... ...................... ...................... ...................... ...................... ......... Disposition: Lizette YAO MD [address] [facility],[address], [place], [address], [employer] 02/22/2024 22:29:56 02/23/2024 text/html [facility] Nurse Triage Notes (Carley Dubose - RN): Reason For Request: Fever, UTI Symptoms Chief Complaints: Fever/chills, Urinary symptoms PMH: Bipolar Disorder, Gastroesophageal Reflux Disease (GERD), Hypertension Comments: Member had a visit yesterday 02/21, unable to give a sample for urine culture send out, picked up scripts today for UTI dx Calling in reporting a fever of 101.8, does not have any Tylenol, took an Excedrin only.Member requesting a visit to make sure she is on the right ABX and worsening symptoms. Advised to keep hydrated with fluids and will place a visit for today.HPachi KASPER ...................... ...................... ...................... ...................... ...................... ...................... ......... Sushi Chef Note From Elias Garrison: Pt chief complaint today of fever/ uti symptoms going on for x 1 week. Pt was seen by [facility] personnel 1 day prior to her [facility] meeting today, urine dip was taken and positive for leukocytes and nitrates. [facility] medic was not able to acquire a culture sample due to not being able to get enough of sample. Pt states that after getting her temperature earlier of 101 she has been sitting. Pt also notes vomiting earlier with small amounts of red in her vomiting, pt has history of ulcers with vomiting happening before. No pain associated. Pt today is looking to have a urine culture taken for analysis as well as a general assessment. Pt denies any co, sob or diarrhea, dizziness or blurred vision. Pt has taken Tylenol before [facility] arrival for fever suppression.Nonneural focal exam, afebrile, vitals WNL, lungs are clear bilaterally. Benign abdominal assessment, no lower extremity edema noted. Pt is CAOX4 with GCS of 15. Urine culture acquired, no urine dip due to positivity yesterday.[facility] Fawn Coelho consultedPt informed, to continue taking her antibiotic which was prescribed prior to her [facility] visit today. Pt told to intake fluids and take 1 gram of Tylenol every 8 hours in a 24 hour period as needed for general aches and fever. Pt also educated on red flag S&S and informed to call emergency services if any present. ...................... ...................... ...................... ...................... ...................... ...................... ......... [facility] Consulted: Fawn Coelho ...................... ...................... ...................... ...................... ...................... ...................... ......... Disposition: Fulfilled Fawn Coelho MD [address] [place] [address],[address], [place], [phone], [employer] 02/23/2024 16:21:22 02/26/2024 text/html [facility] Nurse Triage Notes (Tami Ambriz - MAJO): Chief Complaints: Common cold symptoms, Cough, Headache PMH: Bipolar Disorder, Gastroesophageal Reflux Disease (GERD), Hypertension PMH Reviewed at 02/26/2024:34 Allergies Reviewed at 02/26/2024:34 Comments: Patient called for lab follow up, and now having cold symptoms, and would like a visit. Patient with a 3 day history of nonproductive cough, congestion, body aches, chills, headache and dizziness. She denies chest pain, no shortness of breath, no vomiting or diarrhea. Temperature 100.1. She has been taking dayquil, nightquil, excedrin and tylenol, with some relief. She would like to be evaluated. Sushi Chef Organization Information for [employer] Legal Name: [facility] [facility] Address: [address] [place] [address], [place] [address], [place] Pens Assembler: Jeff Bautista MD SUSAN No.: [id number] Sushi Chef POC Test Results from Sandro Kearney Rapid COVID antigen (11:21:01) COVID: - Rapid influenza antigen (11:21:02) Flu: - ...................... ...................... ...................... ...................... ...................... ...................... ......... Sushi Chef Note From Sandro Kearney: This 48-year-old female history including but not limited to bipolar disorder, GERD, HTN requested a visit today to address ongoing symptoms for two weeks. Patient reports mild dry cough, rhinorrhea, body aches, fevers and chills. Patient states she is currently being treated for a urinary tract infection and has one day left of Macrobid. Patient states her urinary symptoms have not completely resolved. Patient did have some nausea yesterday and vomited twice, not currently nauseous, has Zofran at home. Patient denies any severe abdominal pain, flank pain, shortness of breath, diarrhea. Patient is currently taking Tylenol 1500 mg twice a day. Patient presents awake and alert, in no acute distress and speaking full sentences. Her vital signs are reasonably stable and she has a temp 100.9. Nonfocal neurological exam. Normal gait. Normal oropharynx exam. Lungs are clear throughout auscultation. Abdomen is soft, nontender, nondistended. No CVA tenderness. No lower extremity edema. Rapid COVID and flu testing are both negative. Repeat urine culture is sent to [facility]. I provided education on appropriate Tylenol dosing in the importance of primary care follow-up. I encouraged her to continue to stay well hydrated and present to the emergency department for any new or worsening severe symptoms such as chest pain, severe shortness of breath, severe abdominal pain, uncontrollable nausea/vomiting, black or bloody stools or emesis. The patient was given the opportunity to ask questions and is agreeable to this plan. ...................... ...................... ...................... ...................... ...................... ...................... ......... [facility] Consulted: Aramis Gallardo ...................... ...................... ...................... ...................... ...................... ...................... ......... Disposition: Fulfilled Aramis Gallardo MD [address] [facility],[address], [place], [address], CORRIE Velez [employer] GroupARIELLE BALLARD 02/28/2024 06:38:26 OBGyn Episode No OBEpisode recorded.
--- OUTSIDE RECORDS SUMMARY | 2024-03-21 06:12 | XMS_ITS | Encounter Summary ---
Author Organization [employer] Address [address] [place] [address] 7t [place] [address] Care Team Providers Care Glass Vial Bending Conveyor Feeder Name Role Phone Maddie Kim MD Primary Care Provider [phone] Encounter Details Date Type Department Care Team (Late st Contact Info) Description 01/27/2022 Telephone [facility] MEDICINE [address] [place] [address] Maddie Kim MD [address] [place] [address] Social History Tobacco Use Types Packs/Day Years Used Date Smoking Tobacco: Never Assessed Comments Unknown Sex and Gender Information Value Date Recorded Sex Assigned at Female 12/19/2021 10:17 AM EDT Legal Sex Female 10:17 AM EDT Gender Identity Female 12/19/2021 10:17 AM EDT Sexual Orientation Straight 12/19/2021 10 :17 AM EDT documented as of this encounter Plan of Treatment Upcoming Encounters Date Type Department Care Team (Late Contact Info) Description 03/28/2024 9:45 AM EST Office Visit [facility]INE [address] [place] [address] Maddie Kim MD [address] [place] [address] 04/18/2024 9:00 AM EST Nutrition [facility] DIABETES/NUTRITION [address] [place] [address] [place] [address] documented as of this encounter Visit Diagnoses Not on filedocumented in this encounter Care Teams Glass Vial Bending Conveyor Feeder Relationship Specialty Start Date End Date Maddie Kim MD 230 [place] [address] PCP - General Family Medicine 07/12/20 Willie Gage 01/17/22 documented as of this encounter
--- OUTSIDE RECORDS SUMMARY | 2024-03-21 06:12 | XMS_ITS | Encounter Summary ---
Author Organization [employer] Address [address] [facility] 7t [place] [address] Care Team Providers Care Integration Developer Name Role Phone Maddie Kim MD Primary Care Provider [phone] Encounter Details Date Type Department Care Team ([facility] st Contact Info) Description 06/13/2023 Orders Only [facility] MEDICINE [address] [place], [place] [phone] Maddie Kim MD [address] [place], [place] [phone] Social History Tobacco Use Types Packs/Day Years Used Date Smoking Tobacco: Every Day Cigarettes 0.5 25.1 Started: 02/19/1999 Passive Smoke Exposure: Past Smokeless Tobacco: Never Alcohol Use Standard Drinks/Week Comments Not Currently 0 (1 standard drink = 0.6 oz pur e alcohol) Depression Answer Date Recorded Patient Health Questionnaire-9 Score 3 06/15/2023 Patient Health Questionnaire-9 Score 3 06/15/2023 Last PHQ-9: Questionnaire Data Not on file 0 06/15/2023 Housing Stability Answer Date Recorded What is your housing situation today? I have salomesundar benjamin 11/27/[address] you li ve. Do you have problems with any of the following? No or not working smoke detectors 11/27/2022 Food Insecurity Answer Date Recorded Within the past 12 months, y ou worried that your food would run out before you got money to buy more: Never True 12/04/2022 Within the past 12 months,th e food you bought just didn't last and you didn't have enough money to get more: Never True Transportation Answer Date Recorded In the past 12 months, has l ack of transportation kept you from medical appts, meetings, work or from getting things needed for daily living? No 12/04/2022 Utilities Answer Date Recorded In the past 12 months, has t he electric, gas, oil or water company threatened to shut off services in your home? No 12/04/2022 Depression Answer Date Recorded Patient Health Questionnaire-2 Score 0 06/15/2023 Comments Unknown Sex and Gender Information Value [...] Description 03/28/2024 9:45 AM EST Office Visit [facility] MED[facility]INE [address] [place] [address] Maddie Kim MD [address] [place] [address] 04/18/2024 9:00 AM EST Nutrition [facility] DIABETES/NUTRITION [address] [place] [address] [place] [address] documented as of this encounter Visit Diagnoses Not on filedocumented in this encounter Additional Health Concerns Assessment Noted Time PHQ-9 Depression Total Score: 0 05/30/19 23 3:26 PM EDT documented as of this encounter Care Teams Integration Developer Relationship Specialty Start Date End Date Maddie Kim MD [address] [place] [address] PCP - General Family Medicine 07/12/20 Willie Gage 01/17/22 documented as of this encounter
--- OUTSIDE RECORDS SUMMARY | 2024-03-21 06:12 | XMS_ITS | Encounter Summary ---
Author Organization [employer] Address 75 [facility] 7t [place] [address] Care Team Providers Care Peer Support Specialist Name Role Phone Maddie Kim MD Primary Care Provider [phone] Reason for Visit * Reason Onset Date Comments Nutrition Medication Question 05/30/2023 Encounter Details Date Type Department Care Team ([facility] Contact Info) Description 05/30/2023 Telephone [facility] MEDICINE [address] [place], [place] [phone] Maddie Kim MD 230 [place], [place] [phone] Nutrition Medication Question Social History Tobacco Use Types Packs/Day Years Used Date Smoking Tobacco: Every Day Cigarettes 0.5 25.1 Started: 02/19/1999 Passive Smoke Exposure: Past Smokeless Tobacco: Never Alcohol Use Standard Drinks/Week Comments Not Currently 0 (1 standard drink = 0.6 oz pur e alcohol) Depression Answer Date Recorded Patient Health Questionnaire-9 Score 0 05/29/2022 Housing Stability Answer Date Recorded What is your housing situation today? I have salome benjamin 11/27/[address] you [...] Date Recorded Patient Health Questionnaire-2 Score 0 05/29/2022 Comments Unknown Sex and Gender Information Value Date Recorded Sex Assigned at Female 12/19/2021 10:17 AM EDT Legal Sex Female 10:17 AM EDT Gender Identity Female 12/19/2021 10:17 AM EDT Sexual Orientation Straight 12/19/2021 10 :17 AM EDT documented as of this encounter Miscellaneous Notes * Telephone Encounter - Rosie Vick RD - 06/13/2023 12:05 PM EDT Jayleen Hua. To answer the question, Yes, it can take up to three hours. I did tell Pt that it will take some time to dissolve. Thank you * Telephone Encounter - Jayleen Johns - 06/13/2023 11:23 AM EDT PT called stating that she was told by Dietitian to get a B12 vitamin [address] the tablet under her tongue. PT states the tablet took 3 hrs to dissolve and would like a call from Dietitian to know if that is normal (for the tablet to dissolve so slow) documented in this encounter Plan of Treatment Upcoming Encounters Date Type Department Care Team (Late st Contact Info) Description 03/28/2024 9:45 AM EST Office Visit [facility] MEDICINE [address] [place] [address] Maddie Kim MD [address] [place] [address] 04/18/2024 9:00 AM EST Nutrition [facility] DIABETES/NUTRITION [address] [place] [address] [place] [address] documented as of this encounter Visit Diagnoses Not on filedocumented in this encounter Additional Health Concerns Assessment Noted Time PHQ-9 Depression Total Score: 0 05/30/19 23 3:26 PM EDT documented as of this encounter Care Teams Peer Support Specialist Relationship Specialty Start Date End Date Maddie Kim MD [address] [place] [address] PCP - General Family Medicine 07/12/20 Willie Caring 01/17/22 documented as of this encounter
--- OUTSIDE RECORDS SUMMARY | 2024-03-21 06:12 | XMS_ITS | Encounter Summary ---
Author Organization [employer] Address 75 [facility] 7t [place] [address] Care Team Providers Care Clinical Data Programmer Name Role Phone Maddie Kim MD Primary Care Provider [phone] Reason for Visit * Reason Onset Date Comments Call Back Request 07/26/2023 Encounter Details Date Type Department Care Team ([facility] Contact Info) Description 07/26/2023 Telephone [facility] MEDICINE [address] [place] [address] Maddie Kim MD 230 [place], [place] [phone] Call Back Request Social History Tobacco Use Types Packs/Day Years [...] encounter Miscellaneous Notes * Telephone Encounter - Kathie Mclean RN - 07/27/2023 9:31 AM EDT Tc returned to [facility], questioning pt.'s risperidone inj rx on med list they received. Looking back in chart, this was discontinued after inpatient hosp in 2020 due to noncompliance with injections. This was the last time it was prescribed. [facility] is requesting this is taken off our med list for accuracy, thank you! * Telephone Encounter - Zach Carlson - 07/26/2023 4:12 PM EDT Tc from [facility] with Willie Gage requesting a call back for a med reconciliation. Please contact [facility] at [phone]. documented in this encounter Plan of Treatment Upcoming Encounters Date Type Department Care Team (Late st Contact Info) Description 03/28/2024 9:45 AM EST Office Visit [facility] MEDICINE [address] [place] [address] Maddie Kim MD [address] [place] [address] 04/18/2024 9:00 AM EST Nutrition [facility] DIABETES/NUTRITION [address] [place] [address] [place] [address] documented as of this encounter Visit Diagnoses Not on filedocumented in this encounter Additional Health Concerns Assessment Noted Time PHQ-9 Depression Total Score: 3 06/15/19 24 11:48 AM EDT documented as of this encounter Care Teams Clinical Data Programmer Relationship Specialty Start Date End Date Maddie Kim MD [address] [place] [address] PCP - General Family Medicine 07/12/20 Willie Gage 01/17/22 documented as of this encounter
--- OUTSIDE RECORDS SUMMARY | 2024-03-21 06:12 | XMS_ITS | Encounter Summary ---
Author Organization [employer] Address [address] [facility] 7t [place] [address] Care Team Providers Care Radio Officer Name Role Phone Maddie Kim MD Primary Care Provider [phone] Encounter Details Date Type Department Care Team ([facility] st Contact Info) Description 05/15/2023 Orders Only [facility] MEDICINE [address] [place], [place] [phone] Maddie Kim MD 230 [place], [place] [phone] Social History Tobacco Use Types Packs/Day Years Used Date Smoking Tobacco: Former Cigarettes 0.3 25.1 S tarted: 02/19/1999 Passive Smoke Exposure: Past Smokeless Tobacco: Never Alcohol Use Standard Drinks/Week Comments Not Currently 0 (1 standard drink = 0.6 oz pur e alcohol) Depression Answer Date Recorded Patient Health Questionnaire-9 Score 0 05/29/2022 Housing Stability Answer Date Recorded What is your housing situation today? I have salome cassidy 11/27/[address] you li [...] Description 03/28/2024 9:45 AM EST Office Visit [facility] MEDICINE [address] [place] [address] Maddie Kim MD [address] [place] [address] 04/18/2024 9:00 AM EST Nutrition [facility] DIABETES/NUTRITION [address] [place] [address] Rosie Vick, RD [address] [place] [address] documented as of this encounter Visit Diagnoses Not on filedocumented in this encounter Additional Health Concerns Assessment Noted Time PHQ-9 Depression Total Score: 0 05/30/19 23 3:26 PM EDT documented as of this encounter Care Teams Radio Officer Relationship Specialty Start Date End Date Maddie Kim MD [address] [place] [address] PCP - General Family Medicine 07/12/20 Willie Caring 01/17/22 documented as of this encounter
--- OUTSIDE RECORDS SUMMARY | 2024-03-21 06:12 | XMS_ITS | Continuity of Care Document ---
Author Organization [place] [employer] [facility], [facility] Address [address] [place] [phone] Care Team Providers Care Door Technician Name Role Phone HIM CCA OTHER Assessment No assessment recorded. Plan of Treatment Reminders Order Date Submit Date Provider Last Modified By Organization Details Last Modified Time Details Appointments None recorded. Lab culture, urine 2024 025 [email or web address] [facility], [address] [place] [address], [address], 15:02:19 urinalysis , dipstick 2024 025 [facility], [address] [place] [address], [phone], 07:58:13 Referral None recorded. Procedures None recorded. Surgeries None recorded. Imaging None recorded. Medication Orders Macrobid 100 mg capsule 2024 025 [facility], [address] [place], [address], 5 21:48:16 Macrobid 100 mg capsule 2024 025 [email or web address], [address] [place], [address], 5 22:18:22 Macrobid 100 mg capsule 2024 025 [facility], [address] [place], [address], 5 21:49:28 phenazopyr idine 100 mg tablet 2024 025 [facility]26, [address] [place], [address], 21:48:19 Patient TargetsNo targets recorded. Patient InstructionsNo instructions recorded. Reason for Referral None Reported. Results Created Date Observation Date Name Description Value Unit Range Abnormal Flag Note LastModifiedBy Organization Detail LastModifiedTime Result Notes None recorded. Medical Equipment None Reported. Allergies Allergen ID Allergen Name Allergen Category Reaction Reaction Severity Criticality Documentation Date Start Date Code Code System Note Provider Name and Address Organization Details Recorded Time 30560 Dilantin medicatio n Not available Not available Not available 02/22/2024 0 [facility] 14:48:20 91108 sulfameth oxazole medicatio n Not available Not available Not available 02/22/2024 08215 Rx[facility] 14:48:20 73311 trimethop rim medicatio n Not available Not available Not available 02/22/2024 27707 Rx[facility] Available [facility] 14:48:20 95345 Product containin g penicilli n and antibioti c (product) medicatio n Not available Not available Not available 02/22/2024 28838 05 SNOMED Not Available [facility] 14:48:20 73526 penicilli n G benzathin e medicatio n Not available Not available Not available 02/22/2024 7982 Rx[facility] Not Available [facility] 14:48:20 30512 penicilli n G procaine medicatio n Not available Not available Not available 02/22/2024 7983 Rx[facility] Not Available [facility] 14:48:20 Medications Name Sig Start [...] 5 102 /min 98.8 [degF] 14 /min 225901. 08 g 98 % 98 % 130 mm[Hg] 82 mm[Hg] Not Available [facility] - production 21:29:05 Social History None recorded. Functional Status None recorded. Mental Status None recorded. Family History Nothing Reported. Medical History No medical history recorded. Gynecological HistoryNo gynecological history recorded. Obstetrics History GPAL:G 0 P 0 0 0 0 Past Encounters Encounter ID Performer Location Encounter Start Date Encounter Closed Date Diagnosis/Indication Diagnosis SNOMED-CT Code Diagnosis ICD10 Code Diagnosis Note [id number] ARIEL NAYOLR MD Main - [facility] [address] [place] [phone] 02/22/2024 21:29:01 02/23/2024 18:48:12 Urinary symptoms [id number] R39.9 Evaluation in the field was performed by my manager branch colleague, as noted above, I provided real-time [...] positive for leukocytes , nitrites, blood, and ketones.Al suzie: Reviewed. Impression :UTI Plan:-UA findings are consistent with a UTI. Given the lack of systemic symptoms and CVA tenderness , the diagnosis is most likely simple cystitis.- Prescripti on for Macrobid 100 mg BID for 5 days sent to the patient's pharmacy. The first dose was administer ed by the manager branch. -To alleviate the burning sensation, a prescripti [...] or flank pain or any other concerns. Health Concerns Section Related Observation LastModified by Organization Detai ls LastModified Time None Recorded Concern Status LastModified by Organization Details LastModified Time None Recorded Payers Encounter Date Sequence Insurance Name Policy Number Policy Fernandez Covered Member ID Fernandez Member ID Guarantor Name 02/22/2024 1 [facility] - DOS ON OR AFTER 2022 - DUAL ELIGIBLE - CUSTODIAL OPTIONS AND ONE CARE (MEDICARE REPLACEMENT/ADV ANTAGE - HMO) Atiya Dotson [id number] Atiya Dotson Notes Date Note Type Note Provider Name and Address Organization Details Recorded Time 02/22/2024 text/html HPI: Patient with one week history of urinary pain burning and lower abdominal discomfort. ...................... ...................... ...................... ...................... ...................... ...................... ......... [facility] Nurse Triage Notes (Tami Ambriz - MAJO): Chief Complaints: Urinary symptoms PMH: Bipolar Disorder, Gastroesophageal Reflux Disease (GERD), Hypertension Comments: [facility] RN did not require any additional information to process this visit. Complaint Specialist Organization Information for [employer] Legal Name: [employer]? Address: [address] [place] [address], Aerosol Supervisor: Benjy COLON No.: [id number] Complaint Specialist POC Test Results from [facility] Urine Dipstick (21:31:12) Urine leukocytes: 125+++ LEXIE [...] ...................... ...................... ...................... ...................... ...................... ...................... ......... Complaint Specialist Note From [facility]: Disp for [...] enough for a culture sample. Consulted with [facility] [place] Naylor. Dr. Naylor confirmed UTI with urine dipstick results. Dr. Naylor ordered 100mgs of Macrobid PO. Dr. Naylor sent antibiotic and Pyridium to pharmacy. Dr. Naylor advised patient to stop drinking caffeine and increase fluids as much as possible. Dr. Naylor advised patient if UTI symptoms do not improved on antibiotic in one to two days, schedule another appointment with [facility] for urine culture. Patient understood. Patient administered 100mgs of macrobid PO. Patient educated on red flags/risk factors. All times approx.. ...................... ...................... ...................... ...................... ...................... ...................... ......... [facility] Consulted: Ariel Naylor ...................... ...................... ...................... ...................... ...................... ...................... ......... Disposition: Lizette NAYLOR MD [address] [facility],[address], [place], [address], [employer] 02/22/2024 22:29:56 OBGyn Episode No OBEpisode recorded.
--- OUTSIDE RECORDS SUMMARY | 2024-03-21 06:12 | XMS_ITS | Encounter Summary ---
Author Organization [employer] Address [address] [facility] 7t [place] [address] Care Team Providers Care Shipping Coordinator Name Role Phone Maddie Kim MD Primary Care Provider [phone] Encounter Details Date Type Department Care Team ([facility] st Contact Info) Description 02/22/2024 Orders Only [facility] MEDICINE [address] [place], [place] [phone] Maddie Kim MD [address] [place], [place] [phone] Social History Tobacco Use Types Packs/Day Years [...] Description 03/28/2024 9:45 AM EST Office Visit [facility] MEDICINE [address] [place] [address] Maddie Kim MD [address] [place] [address] 04/18/2024 9:00 AM EST Nutrition [facility] DIABETES/NUTRITION [address] [place] [address] [place] [address] documented as of this encounter Visit Diagnoses Not on filedocumented in this encounter Additional Health Concerns Assessment Noted Time PHQ-9 Depression Total Score: 3 06/15/19 24 11:48 AM EDT documented as of this encounter Care Teams Shipping Coordinator Relationship Specialty Start Date End Date Maddie Kim MD [address] [place] [address] PCP - General Family Medicine 07/12/20 Willie Gage 01/17/22 documented as of this encounter
--- OUTSIDE RECORDS SUMMARY | 2024-03-21 06:13 | XMS_ITS | Encounter Summary ---
Author Organization [employer] Address [address] [facility] 7t [place] [address] Care Team Providers Care Ground Instructor Basic Name Role Phone Maddie iKm MD Primary Care Provider [phone] Encounter Details Date Type Department Care Team ([facility] st Contact Info) Description 01/02/2024 Orders Only [facility] MEDICINE [address] [place], [place] [phone] Maddie Kim MD [address] [place], [place] [phone] Social History Tobacco Use Types Packs/Day Years [...] Description 03/28/2024 9:45 AM EST Office Visit [facility] MEDICINE [address] [place] [address] Maddie Kim MD [address] [place] [address] 04/18/2024 9:00 AM EST Nutrition [facility] DIABETES/NUTRITION [address] [place] [address] [place] [address] documented as of this encounter Visit Diagnoses Not on filedocumented in this encounter Additional Health Concerns Assessment Noted Time PHQ-9 Depression Total Score: 3 06/15/19 24 11:48 AM EDT documented as of this encounter Care Teams Ground Instructor Basic Relationship Specialty Start Date End Date Maddie Kim MD [address] [place] [address] PCP - General Family Medicine 07/12/20 Willie Gage 01/17/22 documented as of this encounter
--- OUTSIDE RECORDS SUMMARY | 2024-03-21 06:13 | XMS_ITS | Encounter Summary ---
Author Organization [employer] Address [address] [facility] 7t [place] [address] Care Team Providers Care Welfare Officer Name Role Phone Maddie Kim MD Primary Care Provider [phone] Reason for Visit * Reason Onset Date Comments Med Refill 02/14/2023 Encounter Details Date Type Department Care Team ([facility] Contact Info) Description 02/14/2023 Refill [facility] [address] [place] [address] [phone] Maddie Kim MD [address] [place], [place] [phone] Social History Tobacco Use Types Packs/Day Years [...] Description 03/28/2024 9:45 AM EST Office Visit [facility] [address] [place] [address] Maddie Kim MD [address] [place] [address] 04/18/2024 9:00 AM EST Nutrition [facility] DIAB[facility]/NUTRITION 230 [place] [address] Rosie Vick, SHANICE 230 [place] [address] documented as of this encounter Visit Diagnoses Not on filedocumented in this encounter Additional Health Concerns Assessment Noted Time PHQ-9 Depression Total Score: 0 05/30/19 23 3:26 PM EDT documented as of this encounter Care Teams Welfare Officer Relationship Specialty Start Date End Date Maddie Kim MD [address] [place] [address] PCP - General Family Medicine 07/12/20 Willie Gage 01/17/22 documented as of this encounter
--- OUTSIDE RECORDS SUMMARY | 2024-03-21 06:13 | XMS_ITS | Continuity of Care Document ---
Author Organization [employer] [facility], [facility] Address [address] [place] [phone] Care Team Providers Care Annual Giving Officer Name Role Phone HIM CCA OTHER Assessment Encounter Date Assessment Date Assessment LastModified by Organization Details LastModified Time 02/26/2024 02/26/2024 I have reviewed and agree with the assessment and plan as documented by the ordnance mechanic. I provided real-time medical direction for this encounter and was immediately available to provide additional phone-based assistance as needed. History as noted in EMR and by ordnance mechanic. I would add / emphasize: Patient seen [...] None recorded. Lab culture, urine 2024 025 [place] [facility], [address] [facility], [place], [address], 08:07:59 rapid flu (A+B) 2024 025 [facility], [address] [place] [address], [id number], 08:13:58 rapid SARS CoV 2 Ag, QL IA, respiratory specimen 2024 Antonio Manzano [facility], [address] [place] [address], [id number], 08:13:39 Referral None recorded. Procedures None recorded. Surgeries None recorded. Imaging None recorded. Medication Orders None recorded. Patient TargetsNo targets recorded. Patient InstructionsNo instructions [...] Name and Address Organization Details Recorded Time 09276 Dilantin medicatio n Not available Not available Not available 02/22/202442786 0 RxNorm Not Available [facility] - production 14:48:20 40316 sulfameth oxazole medicatio n Not available Not available Not available 02/22/2024 21115 [facility] 14:48:20 03865 trimethop rim medicatio n Not available Not available Not available 02/22/2024 22648 RxNorm Not Available [facility] - production 14:48:20 94752 Product containin g penicilli n and antibioti c (product) medicatio n Not available Not available Not available 02/22/2024 38831 05 SNOMED Not Available [facility] - production 14:48:20 46261 penicilli n G benzathin e medicatio n Not available Not available Not available 02/22/2024 7982 RxNorm Not Available [facility] - production 5 14:48:20 32643 penicilli n G procaine medicatio n Not available Not available Not available 02/22/2024 7983 RxNorm Not Available [facility] - production 5 14:48:20 Medications Name Sig Start Date Stop [...] Available No t Available Vitals Date Recorded Body temperature Heart rate Respiratory rate Oxygen saturation Oxygen saturation in Arterial blood by Pulse oximetry Systolic blood pressure Diastolic blood pressure Provider Name and Address Organization Details Last Updated DateTime 5 100.9 [degF] 90 /min 16 /min 95 % 95 % 123 mm[Hg] 85 mm[Hg] Not Available [facility] - production 5 11:22:20 Social History None recorded. Functional Status None recorded. Mental Status None recorded. Family History Nothing Reported. Medical History No medical history recorded. Gynecological HistoryNo gynecological history recorded. Obstetrics History GPAL:G 0 P 0 0 0 0 Past Encounters Encounter ID Performer Location Encounter Start Date Encounter Closed Date Diagnosis/Indication Diagnosis SNOMED-CT Code Diagnosis ICD10 Code Diagnosis Note [id number] KALYN YAO MD [facility] [address] [place] [address] 02/22/2024 21:29:01 02/23/2024 18:48:12 Urinary symptoms [id number] R39.9 Evaluation in the field was performed by my ordnance mechanic colleague, as noted above, I provided real-time [...] first dose was administer ed by the ordnance mechanic. -To alleviate the burning sensation, a prescripti [...] or flank pain or any other concerns. [id number] Fawn Coelho MD [facility] - [facility] [address] [place] [phone] 02/23/2024 14:34:12 02/23/2024 18:56:04 Urinary symptoms [id number] R39.9 [id number] Aramis Gallardo MD Main - [facility] [address] [place] [phone] 02/26/2024 11:22:16 02/28/2024 11:56:29 Urinary symptoms [id number] R39.9 Fever 203810659 R50.9 Health Concerns Section Related Observation LastModified by Organization Detai ls LastModified Time None Recorded Concern Status LastModified by Organization Details LastModified Time None Recorded Payers Encounter Date Sequence Insurance Name Policy Number Policy Fernandez Covered Member ID Fernandez Member ID Guarantor Name 02/26/2024 1 [facility] [employer] - DOS ON OR AFTER 2022 - DUAL ELIGIBLE - LONG TERM OPTIONS AND ONE CARE (MEDICARE REPLACEMENT/ADV ANTAGE - HMO) Atiya Dotson [id number] Atiya Dotson Notes Date Note Type Note Provider Name and Address Organization Details Recorded Time 02/26/2024 text/html CRC Nurse Triage Notes (Tami Ambriz - [...] relief. She would like to be evaluated. Manager Architectural Organization Information for Christel Sandro Velez HILDA Business Legal Name: [facility] Address: [address] [place] [address], [place] Osei [address], Talent Acquisition Manager: Jeff Bautista MD IA No.: [id number] Manager Architectural POC Test Results from Chocolenore Sandro Velez HILDA Rapid COVID antigen (11:21:01) COVID: - Rapid influenza antigen (11:21:02) Flu: - ...................... ...................... ...................... ...................... ...................... ...................... ......... Manager Architectural Note From Christel Sandro: This 48-year-old female history including but not [...] ...................... ...................... ...................... ...................... ...................... ...................... ......... [facility] Consulted: Aramis Gallardo ...................... ...................... ...................... ...................... ...................... ...................... ......... Disposition: Fulfilled Aramis Gallardo MD [address] [facility],[address], [place], [address], CORRIE - [email or web address], ARIELLE 02/28/2024 06:38:26 OBGyn Episode No OBEpisode recorded.
--- OUTSIDE RECORDS SUMMARY | 2024-03-21 06:13 | XMS_ITS | Encounter Summary ---
Author Organization [employer] Address [address] [facility] 7t [place] [address] Care Team Providers Care Electronic Train Control Technician Name Role Phone Maddie Kim MD Primary Care Provider [phone] Reason for Visit * Reason Onset Date Comments NUTRITION APPT REQUEST 03/20/2024 Encounter Details Date Type Department Care Team ([facility] Contact Info) Description 03/20/2024 Telephone [facility] [address] [place] [address] [place], [place] [phone] NUTRITION APPT REQUEST Social History Tobacco Use Types Packs/Day Years [...] encounter Miscellaneous Notes * Telephone Encounter - Jayleen Andreas - 03/20/2024 11:28 AM EST Called PT to schedule a nutrition appt, NA\LVM documented in this encounter Plan of Treatment Upcoming Encounters Date Type Department Care Team (Late st Contact Info) Description 03/28/2024 9:45 AM EST Office Visit [facility] MEDICINE [address] [place] [address] Maddie Kim MD 230 [place] [address] 04/18/2024 9:00 AM EST Nutrition [facility] DIABETES/NUTRITION [address] [place] [address] Rosie Vick, SHANICE [address] [place] [address] documented as of this encounter Visit Diagnoses Not on filedocumented in this encounter Additional Health Concerns Assessment Noted Time PHQ-9 Depression Total Score: 3 06/15/19 24 11:48 AM EDT documented as of this encounter Care Teams Electronic Train Control Technician Relationship Specialty Start Date End Date Maddie Kim MD [address] [place] [address] PCP - General Family Medicine 07/12/20 Willie Gage 01/17/22 documented as of this encounter
--- OUTSIDE RECORDS SUMMARY | 2024-03-21 06:13 | XMS_ITS | Encounter Summary ---
Author Organization [employer] Address [address] [place] [address] 7t [place] [address] Care Team Providers Care Sociocultural Anthropology Professor Name Role Phone Maddie Kim MD Primary Care Provider [phone] Reason for Visit * Reason Onset Date Comments Med Refill 02/21/2024 Encounter Details Date Type Department Care Team ([facility] st Contact Info) Description 02/21/[address] [facility] MEDICINE [address] [place], [place] [phone] Maddie Kim MD [address] [place], [place] [phone] Social History Tobacco Use Types Packs/Day Years [...] encounter Miscellaneous Notes * Telephone Encounter - Dinah Catalan LPN - 02/21/2024 1:39 PM EST Last seen 01/04/24. * Telephone Encounter - Elier Mckinley - 02/21/2024 1:36 PM EST TC from pt requesting medication refill. Medications needing refill : cyclobenzaprine (Flexeril) 10 MG tablet To be sent to: [facility] - [place], [place] - [address] documented in this encounter Plan of Treatment Upcoming Encounters Date Type Department Care Team (Late st Contact Info) Description 03/28/2024 9:45 AM EST Office Visit [facility] MEDIC[facility] [address] [place] [address] Maddie Kim MD [address] [place], [place] [phone] 04/18/2024 9:[address] [facility] DIABETES/NUTRITION [address] [place] [address] [place] [address] documented as of this encounter Visit Diagnoses Not on filedocumented in this encounter Additional Health Concerns Assessment Noted Time PHQ-9 Depression Total Score: 3 06/15/19 24 11:48 AM EDT documented as of this encounter Care Teams Sociocultural Anthropology Professor Relationship Specialty Start Date End Date Maddie Kim MD [address] [place] [address] PCP - General Family Medicine 07/12/20 Willie Gage 01/17/22 documented as of this encounter
--- OUTSIDE RECORDS SUMMARY | 2024-03-21 06:13 | XMS_ITS | Encounter Summary ---
Author Organization [employer] Address [address] [facility] 7t [place] [address] Care Team Providers Care Anode Machine Operator Name Role Phone Maddie Kim MD Primary Care Provider [phone] Reason for Visit * Reason Comments Med Refill Encounter Details Date Type Department Care Team ([facility] st Contact Info) Description 04/12/2023 Refill [facility] [address] [place] [address] [phone] Isac Gonzalez MD 230 [place], [place] [phone] Chronic bilateral low back pain without sciatica Social History Tobacco Use Types Packs/Day Years [...] Description 03/28/2024 9:45 AM EST Office Visit [facility] [address] [place] [address] Maddie Kim MD [address] [place] [address] 04/18/2024 9:00 AM EST Nutrition [facility] DIABETES/NUTRITION [address] [place] [phone] Rosie Vick, SHANICE [address] [place] [address] documented as of this encounter Visit Diagnoses Diagnosis Chronic bilateral low back pain without sciatica documented in this encounter Additional Health Concerns Assessment Noted Time PHQ-9 Depression Total Score: 0 05/30/19 23 3:26 PM EDT documented as of this encounter Care Teams Anode Machine Operator Relationship Specialty Start Date End Date Maddie Kim MD [address] [place] [address] PCP - General Family Medicine 07/12/20 Willie Gage 01/17/22 documented as of this encounter
--- OUTSIDE RECORDS SUMMARY | 2024-03-21 06:13 | XMS_ITS | Encounter Summary ---
Author Organization [employer] Address [address] [place] [address] 7t [place] [address] Care Team Providers Care Sweat Band Separator Name Role Phone Maddie Kim MD Primary Care Provider [phone] Encounter Details Date Type Department Care Team (Late Contact Info) Description 07/05/2022 Orders Only [facility] MEDICINE [address] [place] [address] [phone] Maddie Kim MD [address] [place] [address] [phone] Social History Tobacco Use Types Packs/Day Years Used Date Smoking Tobacco: Every Day Cigarettes 0.3 25.1 Started: 02/19/1999 Smokeless Tobacco: Never Alcohol Use Standard Drinks/Week Comments Not Currently 0 (1 standard drink = 0.6 oz pur e alcohol) Depression Answer Date Recorded Patient Health Questionnaire-9 Score 0 05/29/2022 Depression Answer Date Recorded Patient Health Questionnaire-2 [...] 03/28/2024 9:45 AM EST Office Visit [facility] [address] [place] [address] [phone] Maddie Kim MD [address] [place] [address] [phone] 04/18/2024 9:00 AM EST Nutrition [facility] DIABETES/NUTRITION 230 [place] [address] [place], [place] [phone] documented as of this encounter Visit Diagnoses Not on filedocumented in this encounter Additional Health Concerns Assessment Noted Time PHQ-9 Depression Total Score: 0 05/30/19 23 3:26 PM EDT documented as of this encounter Care Teams Sweat Band Separator Relationship Specialty Start Date End Date Maddie Kim MD 230 [place] [address] PCP - General Family Medicine 07/12/20 Willie Gage 01/17/22 documented as of this encounter
--- OUTSIDE RECORDS SUMMARY | 2024-03-21 06:13 | XMS_ITS | Encounter Summary ---
Author Organization [employer] Address [address] [place] [address] 7t [place] [address] Care Team Providers Care Shipwright Name Role Phone Maddie iKm MD Primary Care Provider [phone] Reason for Visit * Reason Onset Date Comments FYI 02/15/2024 Encounter Details Date Type Department Care Team ([facility] Contact Info) Description 02/15/2024 Telephone [facility] MEDICINE 230 [place], [place] [phone] Maddie Kim MD 230 [place], [place] [phone] FY Social History Tobacco Use Types Packs/Day Years [...] encounter Miscellaneous Notes * Telephone Encounter - Zach Carlson - 02/15/2024 4:26 PM EST Tc from Lauren calling to update pt's medication list. Medication: Calcium D3 1200 MG (2 capsules daily) Seaweed vegetable complex 400 MCG (1 capsule every morning) Multivitamin (2 capsules every morning) If any questions you can contact Lauren at [phone]. documented in this encounter Plan of Treatment Upcoming Encounters Date Type Department Care Team (Late st Contact Info) Description 03/28/2024 9:45 AM EST Office Visit [facility] MEDICINE [address] [place] [address] Maddie Kim MD [address] [place] [address] 04/18/2024 9:00 AM EST Nutrition [facility] DIABETES/NUTRITION 230 [place], [place] [phone] Rosie Vick [address] 230 [place] [address] documented as of this encounter Visit Diagnoses Not on filedocumented in this encounter Additional Health Concerns Assessment Noted Time PHQ-9 Depression Total Score: 3 06/15/19 24 11:48 AM EDT documented as of this encounter Care Teams Shipwright Relationship Specialty Start Date End Date Maddie Kim MD 230 [place] [address] PCP - General Family Medicine 07/12/20 Willie Gage 01/17/22 documented as of this encounter
--- OUTSIDE RECORDS SUMMARY | 2024-03-21 06:13 | XMS_ITS | Encounter Summary ---
Author Organization [employer] Address [address] [place] [address] 7t [place] [address] Care Team Providers Care Combat Rifle Crewmember Name Role Phone Maddie Kim MD Primary Care Provider [phone] Encounter Details Date Type Department Care Team (Late Contact Info) Description 03/30/2022 Abstract [facility] MEDICINE [address] [place] [address] [phone] Maddie Kim MD [address] [place] [address] [phone] Social History Tobacco Use Types Packs/Day Years Used Date Smoking Tobacco: Every Day Cigarettes 0.3 25.1 Started: 02/19/1999 Smokeless Tobacco: Never Alcohol Use Standard Drinks/Week Comments Not Currently 0 (1 standard drink = 0.6 oz pur e alcohol) Comments Unknown Sex and Gender Information Value [...] Description 03/28/2024 9:45 AM EST Office Visit [facility] [address] [place] [address] [phone] Maddie Kim MD [address] [place] [address] [phone] 04/18/2024 9:00 AM EST Nutrition [facility] DIABETES/NUTRITION [address] [place] [address] [phone] Rosie Vick, RD 230 [place] [address] documented as of this encounter Visit Diagnoses Not on filedocumented in this encounter Care Teams Combat Rifle Crewmember Relationship Specialty Start Date End Date Maddie Kim MD 230 [place] [address] PCP - General Family Medicine 07/12/20 Willie Gage 01/17/22 documented as of this encounter
--- OUTSIDE RECORDS SUMMARY | 2024-03-21 06:13 | XMS_ITS | Encounter Summary ---
Author Organization [employer] Address [address] [place] [address] 7t [place] [address] Care Team Providers Care Roll Machine Operator Name Role Phone Maddie Kim MD Primary Care Provider [phone] Encounter Details Date Type Department Care Team ([facility] Contact Info) Description 06/26/[address] [facility] MEDICINE [address] [place] [phone] Maddie Kim MD [address] [place] [address] [phone] Social History Tobacco Use Types Packs/Day Years [...] Orientation Straight 12/19/2021 10 :17 AM EDT COVID-19 Exposure Response Date Recorded In the last 10 days, have yo u been in contact with someone who was confirmed or suspected to have Coronavirus/COVID-19? No / Unsure 05/29/2022 1:36 PM EDT documented as of this encounter Plan of Treatment Upcoming Encounters Date Type Department Care Team ([facility] Contact Info) Description 03/28/2024 9:45 AM EST Office Visit [facility] MEDICINE 230 [place] [address] Maddie Kim MD 230 [place], [place] [phone] 04/18/2024 9:[address] [facility] DIABETES/NUTRITION 230 [place] [address] [place], [place] [phone] documented as of this encounter Visit Diagnoses Not on filedocumented in this encounter Additional Health Concerns Assessment Noted Time PHQ-9 Depression Total Score: 0 05/30/19 23 3:26 PM EDT documented as of this encounter Care Teams Roll Machine Operator Relationship Specialty Start Date End Date Maddie Kim MD [address] [place] [phone] PCP - General Family Medicine 07/12/20 Willie Gage 01/17/22 documented as of this encounter
--- OUTSIDE RECORDS SUMMARY | 2024-03-21 06:13 | XMS_ITS | Encounter Summary ---
Author Organization [employer] Address [address] [place] [address] 7t [place] [address] Care Team Providers Care Skills Auditor Name Role Phone Maddie Kim MD Primary Care Provider [phone] Encounter Details Date Type Department Care Team (Late Contact Info) Description 04/11/2022 Abstract [facility] MEDICINE [address] [place] [address] [phone] Maddie Kim MD [address] [place] [address] [phone] Social History Tobacco Use Types Packs/Day Years [...] Description 03/28/2024 9:45 AM EST Office Visit [facility] MEDICINE [address] [place] [address] [phone] Maddie Kim MD [address] [place] [address] [phone] 04/18/2024 9:00 AM EST Nutrition [facility] DIABETES/NUTRITION [address] [place] [address] [phone] Rosie Vick, RD 230 [place] [address] documented as of this encounter Visit Diagnoses Not on filedocumented in this encounter Care Teams Skills Auditor Relationship Specialty Start Date End Date Maddie Kim MD 230 [place] [address] PCP - General Family Medicine 07/12/20 Willie Gage 01/17/22 documented as of this encounter
--- OUTSIDE RECORDS SUMMARY | 2024-03-21 06:13 | XMS_ITS | Encounter Summary ---
Author Organization [employer] Address [address] [place] [address] 7t [place] [address] Care Team Providers Care Business Reporter Name Role Phone Maddie Kim MD Primary Care Provider [phone] Encounter Details Date Type Department Care Team (Late Contact Info) Description 11/14/2022 Orders Only [facility] MEDICINE [address] [place] [address] [phone] Maddie Kim MD [address] [place] [address] [phone] Social History Tobacco Use Types Packs/Day Years [...] 03/28/2024 9:45 AM EST Office Visit [facility] MEDICINE [address] [place] [phone] Maddie Kim MD [address] [place] [address] [phone] 04/18/2024 9:00 AM EST Nutrition [facility] DIABETES/NUTRITION 230 [place], [place] [phone] Rosie Vick RD 230 [place], [place] [phone] documented as of this encounter Visit Diagnoses Not on filedocumented in this encounter Additional Health Concerns Assessment Noted Time PHQ-9 Depression Total Score: 0 05/30/19 23 3:26 PM EDT documented as of this encounter Care Teams Business Reporter Relationship Specialty Start Date End Date Maddie Kim MD [address] [place], [place] [phone] PCP - General Family Medicine 07/12/20 Willie Gage 01/17/22 documented as of this encounter
--- OUTSIDE RECORDS SUMMARY | 2024-03-21 06:13 | XMS_ITS | Encounter Summary ---
Author Organization [employer] Address [address] [facility] 7t [place] [address] Care Team Providers Care Soliciting Freight Agent Name Role Phone Maddie Kim MD Primary Care Provider [phone] Reason for Visit * Reason Onset Date Comments Med Refill 05/10/2023 Encounter Details Date Type Department Care Team ([facility] st Contact Info) Description 05/10/2023 Refill [facility] MEDICINE 230 [place], [place] [phone] Maddie Kim MD 230 [place], [place] [phone] Chronic bilateral low back pain without sciatica [...] encounter Miscellaneous Notes * Telephone Encounter - Maddie Kim MD - 05/15/2023 2:35 PM EDT Pt relapsed on alcohol one month after T3 documented in this encounter Plan of Treatment Upcoming Encounters Date Type Department Care Team (Late st Contact Info) Description 03/28/2024 9:45 AM EST Office Visit [facility] MEDICINE [address] [place] [phone] Maddie Kim MD 230 [place] [address] 04/18/2024 9:00 AM EST Nutrition [facility] DIABETES/NUTRITION 230 [place] [address] [place] [address] documented as of this encounter Visit Diagnoses Diagnosis Chronic bilateral low back pain without sciatica documented in this encounter Additional Health Concerns Assessment Noted Time PHQ-9 Depression Total Score: 0 05/30/19 23 3:26 PM EDT documented as of this encounter Care Teams Soliciting Freight Agent Relationship Specialty Start Date End Date Maddie Kim MD 230 [place] [address] PCP - General Family Medicine 07/12/20 Willie Gage 01/17/22 documented as of this encounter
--- OUTSIDE RECORDS SUMMARY | 2024-03-21 06:13 | XMS_ITS | Encounter Summary ---
Author Organization [employer] Address [address] [place] [address] 7t [place] [address] Care Team Providers Care Aviation Tactical Readiness Officer Name Role Phone Maddie Kim MD Primary Care Provider [phone] Reason for Visit * Reason Onset Date Comments c/b request 11/10/2022 Encounter Details Date Type Department Care Team ([facility] st Contact Info) Description 11/10/2022 Telephone [facility] MEDICINE [address] [place] [address] [phone] Maddie Kim MD [address] [place], [place] [phone] c/b request Social History Tobacco Use Types Packs/Day Years [...] Telephone Encounter - Kathie Mclean RN - 11/13/2022 2:50 PM EDT Med rec completed with [facility]. Pt. Is in need of omeprazole refill, last sent August 2021 for 1 year supply. * Telephone Encounter - Padmini Uli - 11/10/2022 4:26 PM EDT Tc from [facility] with willie gage requesting a call in regards to medication reconciliation. Please contact [facility] at [phone] documented in this encounter Plan of Treatment Upcoming Encounters Date Type Department Care Team (Late st Contact Info) Description 03/28/2024 9:45 AM EST Office Visit [facility] MEDICINE [address] [place] [address] Maddie Kim MD [address] [place] [address] 04/18/2024 9:00 AM EST Nutrition [facility] DIABETES/NUTRITION [address] [place] [address] Rosie Vick, SHANICE [address] [place] [address] documented as of this encounter Visit Diagnoses Diagnosis Gastroesophageal reflux disease without esophagitis Esophageal reflux documented in this encounter Additional Health Concerns Assessment Noted Time PHQ-9 Depression Total Score: 0 05/30/19 23 3:26 PM EDT documented as of this encounter Care Teams Aviation Tactical Readiness Officer Relationship Specialty Start Date End Date Maddie Kim MD [address] [place] [address] [phone] PCP - General Family Medicine 07/12/20 Willie Gage 01/17/22 documented as of this encounter
--- OUTSIDE RECORDS SUMMARY | 2024-03-21 06:13 | XMS_ITS | Data Portability ---
Author Organization [place] - [facility] Pamella Flynn - [facility] Address [address] [place] [address] Care Team Providers Care Senior Engineering Team Leader Name Role Phone ALEXIS RANGEL Primary Care Provider ALEXIS RANGEL Referring Provider Assessment Encounter Date Assessment Date Assessment LastModified by Organization Details LastModified Time 07/24/2019 07/24/2019 43 yo female with rectal bleeding and diarrhea. Her diarrhea is more chronic in nature and not associated with the rectal bleeding she experienced. The bleeding may have been secondary to hemorrhoids, however given her diarrhea and bleeding and family history of polyps then I would recommend colonoscopy for further evaluation. Atiya is in agreement with this plan. Colonoscopy will be scheduled for her this summer. Total time spent with this encounter was 12 mintues. pamella Not available 07/24/2019 14:16:20 Plan of Treatment Reminders Order Date Submit Date Provider Last Modified By Organization Details Last Modified Time Details Appointments None record ed. Lab None record ed. Referral None record ed. Procedures None record ed. Surgeries None record ed. Imaging None record ed. Medication Orders None record ed. Patient TargetsNo targets recorded. Patient Instructions Encounter Date Encounter Id Patient Instructions Last Modified By Organization Details Last Modified Time 07/24/2019 [id number] FINAL Reason: GI BLEEDING EXAM# DEPT/EXAM EXAM DATE TIME [id number] CCT - Angio Abd Plevis W-WO Contrast 06/06/2019 16:35 RESULT: CTA ABDOMEN AND PELVIS INDICATION: GI bleeding, abdominal pain. TECHNIQUE: CTA of the abdomen and pelvis prior to and following administration of intravenous contrast. Axial, coronal, and sagittal reformations. 3D angiographic postprocessing with multiplanar MIP reformations. Intravenous contrast: 100 mL Omnipaque 350. COMPARISON: None. FINDINGS: CT ANGIOGRAM: No aortic dissection or aneurysm. Celiac: Patent without significant stenosis. Superior mesenteric artery: Patent without significant stenosis. Inferior mesenteric artery: Patent without significant stenosis. Right renal artery: Patent without significant stenosis. Left renal artery: Patent without significant stenosis. SMV: Patent Portal vein: Patent IVC: Patent Pelvic veins: Patent Bleeding assessment: No enteric intraluminal extravasation or accumulation of contrast is demonstrated on postcontrast imaging to localize a site of active GI bleeding at the time of the exam. CT ABDOMEN AND PELVIS: LOWER THORAX: Normal cardiac size. LIVER: Unremarkable. BILIARY: The gallbladder is not visualized, likely status post cholecystectomy. No CBD stone or obstruction is evident. SPLEEN: Normal size. PANCREAS: Unremarkable. ADRENAL GLANDS: Unremarkable. KIDNEYS/URETERS: Unremarkable. BOWEL: The patient shows post surgical change at the stomach status post gastric bypass. The stomach, duodenum and small bowel loops show no obstruction or acute inflammatory thickening. The appendix is not positively identified however no pericecal inflammatory changes are evident. The remainder of the colon shows no obstruction or abnormal thickening. PERITONEUM: No free fluid or free gas. URINARY BLADDER: Unremarkable. PELVIC ORGANS: The uterus shows an IUD within the endometrial cavity and the adnexa show no acute abnormality. LYMPH NODES: No pathologically enlarged lymph nodes. BONES/SOFT TISSUES: Unremarkable. IMPRESSION: 1. Negative for evidence of active GI bleeding at the time of the exam. No other specific acute abnormality demonstrated. 2. IUD in place without evidence of constipation. Report Read by: ANTONINO WEBSTER [id number] on Jun 06 2019 4:55P Transcribed by: on Jun 06 2019 4:44P Report Electronically Signed by: DR. ANTONINO WEBSTER on: Jun 06 2019 4:55P [id number] [email or web address] Not available 07/24/2019 14:04:23 Reason for Referral None Reported. Problems Name Problem SNOMED Code Status Onset Date Resolution Date Notes Provider Name and Address Organization Details Recorded Time Diarrhea [id number] Active 2019 MD María Elena Joe [address], [place], [phone], [facility] 0 14:09:16 Hematochezia [id number] Active 2019 MD María Elena Joe [address], [place], [address], [facility] 0 14:09:25 Problem Notes None recorded. Medical Equipment None Reported. Allergies Allergen ID Allergen Name Allergen Category Reaction Reaction Severity Criticality Documentation Date Start Date Code Code System Note Provider Name and Address Organization Details Recorded Time 62019 Product containin g penicilli n and antibioti c (product) medicatio n Not available Not available Not available 07/24/2019 63826 05 SNOMED MD María Elena Joe [address], [place], [address], [facility] 0 14:04:50 99599 Dilaudid medicatio n Not available Not available Not available 07/24/2019 38699 3 RxNorm MD María Elena Joe [address], [place], [address], [facility] 0 14:04:55 Medications Name Sig Start Date Stop Date Status Note LastModified by Organization Details LastModified Time carisoprodo l 350 mg tablet 07/23 completed Not Available Not Available Not Available cyclobenzap rine 10 mg tablet 07/23 completed Not Available Not Available Not Available clonidine HCl 0.1 mg tablet active Not Available Not Available Not Available prednisone 10 mg tablet 07/23 completed Not Available Not Available Not Available benztropine 0.5 mg tablet 07/23 completed Not Available Not Available Not Available divalproex 250 mg tablet,kassandra yed release 07/23 completed Not Available Not Available Not Available loperamide 2 mg capsule active Not Available Not Available Not Available trazodone 50 mg tablet active Not Available Not Available Not Available nicotine (polacrilex ) 2 mg gum START BY CHEWING 1 PIECE EVERY 1-2 HOURS NEEDED FOR 2 WEEKS, THEN TITRATE DIRECTED. MAX 16 PEICES/DA Y 07/23 completed Not Available Not Available Not Available hydrocodone 5 mg-acetamin ophen 325 mg tablet 07/23 completed Not Available Not Available Not Available chlorpromaz ine 100 mg tablet 07/23 completed Not Available Not Available Not Available prazosin 1 mg capsule TAKE THREE CAPSULES BY MOUTH AT BEDTIME NEEDED FOR INSOMNIA active Not Available Not Available No t Available prednisone 20 mg tablet 07/23 completed Not Available Not Available Not Available loperamide 2 mg tablet take 1 tablet by mouth once daily if needed for diarrhea 07/23 completed Not Available Not Available Not Available hydroxyzine pamoate 50 mg capsule 07/23 completed Not Available Not Available Not Available hydroxyzine HCl 50 mg tablet 07/23 completed Not Available Not Available Not Available divalproex 500 mg tablet,kassandra yed release 07/23 completed Not Available Not Available Not Available ciprofloxac in 500 mg tablet 07/23 completed Not Available Not Available Not Available omeprazole 40 mg capsule,del ayed release 07/23 completed Not Available Not Available Not Available tramadol 50 mg tablet 07/23 completed Not Available Not Available Not Available acetaminoph en 500 mg tablet TAKE TWO TABLETS BY MOUTH TWICE A DAY 07/23 completed Not Available Not Available Not Available risperidone 3 mg tablet 07/23 completed Not Available Not Available Not Available lithium carbonate ER 450 mg tablet,exte nded release 07/23 completed Not Available Not Available Not Available levothyroxi ne 25 mcg tablet active Not Available Not Available Not Available baclofen 20 mg tablet 07/23 completed Not Available Not Available Not Available pantoprazol e 20 mg tablet,kassandra yed release 07/23 completed Not Available Not Available Not Available famotidine 20 mg tablet 07/23 completed Not Available Not Available Not Available lorazepam 0.5 mg tablet 07/23 completed Not Available Not Available Not Available DOK 100 mg capsule take 1 capsule by mouth twice a day 07/23 completed Not Available Not Available Not Available trazodone 100 mg tablet 07/23 completed Not Available Not Available Not Available dicyclomine 20 mg tablet 07/23 completed Not Available Not Available Not Available baclofen 10 mg tablet 07/23 completed Not Available Not Available Not Available levothyroxi ne 50 mcg tablet 07/23 completed Not Available Not Available Not Available pantoprazol e 40 mg tablet,kassandra yed release 07/23 completed Not Available Not Available Not Available ferrous sulfate 325 mg (65 mg iron) tablet TAKE ONE TABLET BY MOUTH EVERY DAY WITH BREAKFAST active Not Available Not Available No t Available chlorpromaz ine 25 mg tablet 07/23 completed Not Available Not Available Not Available divalproex ER 500 mg tablet,exte nded release 24 hr 07/23 completed Not Available Not Available Not Available nicotine 21 mg/24 hr daily transdermal patch APPLY 1 PATCH TOPICALLY ONCE DAILY FOR NICOTINE CRAVINGS 07/23 completed Not Available Not Available Not Available fluoxetine 10 mg capsule 07/23 completed Not Available Not Available Not Available omeprazole 20 mg capsule,del ayed release 07/23 completed Not Available Not Available Not Available topiramate 200 mg tablet 07/23 completed Not Available Not Available Not Available epinephrine 0.3 mg/0.3 mL injection, auto-inject or active Not Available Not Available Not Available ibuprofen 600 mg tablet 07/23 completed Not Available Not Available Not Available topiramate 100 mg tablet 07/23 completed Not Available Not Available Not Available risperidone 1 mg tablet 07/23 completed Not Available Not Available Not Available chlorpromaz ine 50 mg tablet 07/23 completed Not Available Not Available Not Available oxycodone 5 mg tablet 07/23 completed Not Available Not Available Not Available hydroxyzine pamoate 25 mg capsule 07/23 completed Not Available Not Available Not Available Daily-Kimberly tablet TAKE 1 TABLET BY MOUTH EVERY DAY 07/23 completed Not Available Not Available Not Available divalproex ER 250 mg tablet,exte nded release 24 hr active Not Available Not Available Not Available Arthritis Pain Reliever 650 mg tablet,exte nded release TK 1 T PO BID active Not Available Not Available No t Available cyclobenzap rine 5 mg tablet 07/23 completed Not Available Not Available Not Available Risperdal Consta 50 mg/2 mL intramuscul ar susp,extend ed release INJECT 2ML INTO MUSCLE EVERY 14 DAYS active Not Available Not Available No t Available Risperdal Consta 25 mg/2 mL intramuscul ar susp,extend ed release 07/23 completed Not Available Not Available Not Available quetiapine 400 mg tablet 07/23 completed Not Available Not Available Not Available Symbicort 160 mcg-4.5 mcg/actuati on HFA aerosol inhaler INHALE 2 PUFFS INHALATIO N TWICE A DAY 07/23 completed Not Available Not Available Not Available quetiapine ER 200 mg tablet,exte nded release 24 hr 07/23 completed Not Available Not Available Not Available Banophen 50 mg capsule TAKE ONE CAPSULE BY MOUTH AT BEDTIME NEEDED 07/23 completed Not Available Not Available Not Available Vitals None Recorded Social History Question Answer Notes LastModified by Organizat ion Details LastModified Time Tobacco Smoking Status Former Smoker Guslhan Lowry MD [address], [place], [address], [facility] 07/24/2019 14:06:56 What Is Your Level Of Alcohol Consumption? None Information not available 07/24/2019 Which Illicit Or Recreational Drugs Have You Used? Denies Information not available 07/24/2019 How Much Tobacco Do You Smoke? No Information not available 07/24/2019 Sex: Unknown Functional Status None recorded. Mental Status None recorded. Family History Relationship Description Onset Age of this Age Resolved Age Notes LastModified by Organization Details LastModified Time Father Hypertensive disorder jyamin Not available 2019 14:13:40 Mother Hypertensive disorder jyamin Not available 2019 14:13:50 Mother Diabetes mellitus jyamin Not available 2019 14:14:00 Medical History Condition Response Depression/Anxiety GI Disorders (GERD/IBD/IBS/[place]) Y Thyroid disease Y Gynecological HistoryNo gynecological history recorded. Obstetrics History GPAL:G 0 P 0 0 0 0 Past Encounters Encounter ID Performer Location Encounter Start Date Encounter Closed Date Diagnosis/Indication Diagnosis SNOMED-CT Code Diagnosis ICD10 Code Diagnosis Note [id number] Gulshan Lowry MD [facility] [address] [place] [phone] 07/24/2019 08:51:48 07/28/2019 10:40:36 Hematochezia 881093811 K92.1 Chronic diarrhea 7954706 09 K52.9 Health Concerns Section Related Observation LastModified by Organization Detai ls LastModified Time None Recorded Concern Status LastModified by Organization Details LastModified Time None Recorded Advance Directives Directive None Recorded Payers Encounter Date Sequence Insurance Name Policy Number Policy Fernandez Covered Member ID Fernandez Member ID Guarantor Name 07/24/2019 1 [place]ARE [place]: [employer] Atiya Y [place] [id number] Atiya Y Isaias 07/24/2019 2 MEDICAID-[place]: [facility] Atiya Frost [place] [id number] Atiya Frost [place] Notes Date Note Type Note Provider Name and Address Organization Details Recorded Time 07/24/2019 text/html This is a telehealth consultation for Atiya Esparza. Atiya consents for the telehealth consultation and is present at home and in no apparent distress. I am present in my office. Atiya has issues with chronic diarrhea. She reports loose stool 2-3x a day. She denies bloating, gas, or nocturnal diarrhea. She denies unexplained weight loss. She did see bright red blood in her stool which lasted about a week. This has now resolved. She notes some periumbilic abdominal pain as well. Gulshan Lowry MD [address] [place] [address],[address], [place], [address], [facility] 07/24/2019 14:21:54 OBGyn Episode No OBEpisode recorded.
--- OUTSIDE RECORDS SUMMARY | 2024-03-21 06:13 | XMS_ITS | Encounter Summary ---
Author Organization [employer] Address [address] [facility] 7t [place] [address] Care Team Providers Care Tavern Car Attendant Name Role Phone Maddie Kim MD Primary Care Provider [phone] Reason for Visit * Reason Onset Date Comments Verbal orders/ Medication question 05/08/2023 Encounter Details Date Type Department Care Team ([facility] Contact Info) Description 05/08/2023 Telephone [facility] MEDICINE [address] [place], [place] [phone] Maddie Kim MD [address] [place], [place] [phone] Verbal orders/ Medication question Social History Tobacco Use Types Packs/Day Years [...] encounter Miscellaneous Notes * Telephone Encounter - Stella Bailey RN - 05/09/2023 9:54 AM EDT TC placed to [place] at the [facility] and gave VO for [place] [facility] for 3 times a week. Pt medications were also reconciled and pt reports using Viviscal OTC for hair growth and Calcium + VitD supplements. * Telephone Encounter - Toña Castillo - 05/08/2023 4:20 PM EDT Tc from [facility] requesting some verbal orders reconciliation for skill nursing 3 times a week. [place] is also requesting a call back to speak about patient's medications. documented in this encounter Plan of Treatment Upcoming Encounters Date Type Department Care Team (Late st Contact Info) Description 03/28/2024 9:45 AM EST Office Visit [facility] MEDICINE [address] [place] [address] Maddie Kim MD [address] [place] [address] 04/18/2024 9:00 AM EST Nutrition [facility] DIABETES/NUTRITION [address] [place] [address] [place] [address] documented as of this encounter Visit Diagnoses Not on filedocumented in this encounter Additional Health Concerns Assessment Noted Time PHQ-9 Depression Total Score: 0 05/30/19 23 3:26 PM EDT documented as of this encounter Care Teams Tavern Car Attendant Relationship Specialty Start Date End Date Maddie Kim MD [address] [place] [address] PCP - General Family Medicine 07/12/20 Willie Caring 01/17/22 documented as of this encounter
--- OUTSIDE RECORDS SUMMARY | 2024-03-21 06:13 | XMS_ITS | Encounter Summary ---
Author Organization [employer] Address [address] [facility] 7t [place] [address] Care Team Providers Care Car Repair Supervisor Name Role Phone Maddie Kim MD Primary Care Provider [phone] Reason for Visit * Reason Onset Date Comments Durable Medical Equipment 03/16/2022 Encounter Details Date Type Department Care Team ([facility] st Contact Info) Description 03/16/2022 Telephone [facility] MEDICINE [address] [place], [place] [phone] Maddie Kim MD [address] [place], [place] [phone] Durable Medical Equipment Social History Tobacco Use Types Packs/Day Years [...] encounter Miscellaneous Notes * Telephone Encounter - Kalpana Alonso LPN - 03/17/2022 10:20 AM EST Generic housing letter created for installation of shower grab bar for apartment bathroom and sent to provider for signature. Patient will be called when letter is ready, has to sign release when picked up. * Telephone Encounter - Toña Castillo - 03/16/2022 12:40 PM EST Tc from pt requesting a shower hold bar, pt states she had a Knee replacement surgery and she is not able to hold herself correctly in while showering. Pt is requesting also a letter stating that sheneeds this equipment to provide it to her landlord and if it can fax to her landlord at [phone]. She would like the script to be to the [facility], [address] [place] [address] If any concerns please contact pt at [phone] documented in this encounter Plan of Treatment Upcoming Encounters Date Type Department Care Team (Late st Contact Info) Description 03/28/2024 9:45 AM EST Office Visit [facility] MEDICINE [address] [place] [address] Maddie Kim MD [address] [place] [address] 04/18/2024 9:00 AM EST Nutrition [facility] DIABETES/NUTRITION [address] [place] [address] Rosie Vick, SHANICE [address] [place] [address] documented as of this encounter Visit Diagnoses Not on filedocumented in this encounter Care Teams Car Repair Supervisor Relationship Specialty Start Date End Date Maddie Kim MD [address] [place] [phone] PCP - General Family Medicine 07/12/20 Willie Gage 01/17/22 documented as of this encounter
--- OUTSIDE RECORDS SUMMARY | 2024-03-21 06:13 | XMS_ITS | Encounter Summary ---
Author Organization [employer] Address [address] [facility] 7t [place] [address] Care Team Providers Care Loss Prevention/Safety District Manager Name Role Phone Maddie Kim MD Primary Care Provider [phone] Reason for Visit * Reason Comments Med Refill Encounter Details Date Type Department Care Team ([facility] st Contact Info) Description 04/12/2023 Refill [facility] [address] [place] [address] [phone] Isac Gonzalez MD [address] [place], [place] [phone] Chronic bilateral low back pain without sciatica [...] Description 03/28/2024 9:45 AM EST Office Visit [facility] MEDICINE [address] [place] [phone] Maddie Kim MD [address] [place] [phone] 04/18/2024 9:00 AM EST Nutrition [facility] DIABETES/NUTRITION [address] [place] [phone] Rosie Vick, SHANICE [address] [place] [address] documented as of this encounter Visit Diagnoses Diagnosis Chronic bilateral low back pain without sciatica documented in this encounter Additional Health Concerns Assessment Noted Time PHQ-9 Depression Total Score: 0 05/30/19 23 3:26 PM EDT documented as of this encounter Care Teams Loss Prevention/Safety District Manager Relationship Specialty Start Date End Date Maddie Kim MD [address] [place] [phone] PCP - General Family Medicine 07/12/20 Willie Gage 01/17/22 documented as of this encounter
--- OUTSIDE RECORDS SUMMARY | 2024-03-21 06:13 | XMS_ITS | Encounter Summary ---
Author Organization [employer] Address [address] [place] [address] 7t [place] [address] Care Team Providers Care Miter Grinder Operator Name Role Phone Maddie Kim MD Primary Care Provider Reason for Visit * Reason Onset Date Comments Durable Medical Equipment 03/02/2022 Encounter Details Date Type Department Care Team ([facility] st Contact Info) Description 03/02/2022 Telephone [facility] MEDICINE [address] [place] [phone] Shayna Pritchett, MAJO Durable Medical Equipment Social History Tobacco Use [...] encounter Miscellaneous Notes * Telephone Encounter - Krystin Mckinley - 03/08/2022 1:15 PM EST Script generated for signature * Telephone Encounter - Ethan Smith - 03/08/2022 11:27 AM EST Tc from pt requesting a script for toilet seat riser due to having surgery this Sunday03/10/22 pt would like script to be send to [facility] Please contact pt at [phone] documented in this encounter Plan of Treatment Upcoming Encounters Date Type Department Care Team (Late st Contact Info) Description 03/28/2024 9:45 AM EST Office Visit [facility] MEDICINE [address] [place] [address] Maddie Kim MD [address] [place] [address] 04/18/2024 9:00 AM EST Nutrition [facility] DIABETES/NUTRITION [address] [place], [place] [phone] Rosie Vick [address] [place] [address] documented as of this encounter Visit Diagnoses Not on filedocumented in this encounter Care Teams Miter Grinder Operator Relationship Specialty Start Date End Date Maddie Kim MD [address] [place] [phone] PCP - General Family Medicine 07/12/20 Willie Gage 01/17/22 documented as of this encounter
--- OUTSIDE RECORDS SUMMARY | 2024-03-21 06:13 | XMS_ITS | Encounter Summary ---
Author Organization [employer] Address [address] [facility] 7t [place] [address] Care Team Providers Care Custom Stock Maker Name Role Phone Maddie Kim MD Primary Care Provider [phone] Reason for Visit * Reason Onset Date Comments Med Refill 04/12/2023 Encounter Details Date Type Department Care Team ([facility] st Contact Info) Description 04/12/2023 Refill [facility] [address] [place], [place] [phone] Maddie Kim MD 230 [place], [place] [phone] Chronic bilateral low back pain without sciatica [...] Description 03/28/2024 9:45 AM EST Office Visit [facility] [address] [place] [phone] Maddie Kim MD [address] [place] [address] 04/18/2024 9:00 AM EST Nutrition [facility] DIABETES/NUTRITION [address] [place] [phone] [place] [address] documented as of this encounter Visit Diagnoses Diagnosis Chronic bilateral low back pain without sciatica documented in this encounter Additional Health Concerns Assessment Noted Time PHQ-9 Depression Total Score: 0 05/30/19 23 3:26 PM EDT documented as of this encounter Care Teams Custom Stock Maker Relationship Specialty Start Date End Date Maddie Kim MD [address] [place] [phone] PCP - General Family Medicine 07/12/20 Willie Gage 01/17/22 documented as of this encounter
--- OUTSIDE RECORDS SUMMARY | 2024-03-21 06:13 | XMS_ITS | Encounter Summary ---
Author Organization [employer] Address [address] [facility] 7t [place] [address] Care Team Providers Care Mixer Driver Name Role Phone Maddie Kim MD Primary Care Provider [phone] Reason for Visit * Reason Onset Date Comments Medication Question 07/05/2022 Encounter Details Date Type Department Care Team ([facility] Contact Info) Description 07/05/2022 Telephone [facility] MED[facility]INE 230 [place], [place] [phone] Maddie Kim MD 230 [place], [place] [phone] Medication Question Social History Tobacco Use Types [...] Telephone Encounter - Kathie Mclean RN - 07/05/2022 11:33 AM EDT Last sent Mar 2021. Noted in telehealth appt. 05/29/22, plan for R knee was Tylenol, Motrin, Flexeril, Gabapentin for pain prn . Please send refill if agreeable * Telephone Encounter - Vianey Guo - 07/05/2022 11:24 AM EDT Tc from pt requesting a refill for cyclobenzaprine 5 mg however script is inactive. documented in this encounter Plan of Treatment Upcoming Encounters Date Type Department Care Team (Late st Contact Info) Description 03/28/2024 9:45 AM EST Office Visit [facility] MED[facility]INE [address] [place] [address] Maddie Kim MD 230 [place] [address] 04/18/2024 9:00 AM EST Nutrition [facility] DIABETES/NUTRITION [address] [place] [address] [place] [address] documented as of this encounter Visit Diagnoses Diagnosis History of arthroplasty of right knee Arthropathy Unspecified arthropathy, site unspecified documented in this encounter Additional Health Concerns Assessment Noted Time PHQ-9 Depression Total Score: 0 05/30/19 23 3:26 PM EDT documented as of this encounter Care Teams Mixer Driver Relationship Specialty Start Date End Date Maddie Kim MD 230 [place] [address] PCP - General Family Medicine 07/12/20 Willie Gage 01/17/22 documented as of this encounter
--- OUTSIDE RECORDS SUMMARY | 2024-03-21 06:13 | XMS_ITS | Encounter Summary ---
Author Organization [employer] Address [address] [place] [address] 7t [place] [address] Care Team Providers Care Spinneret Person Name Role Phone Maddie Kim MD Primary Care Provider [phone] Reason for Referral * Consultation (Routine) - Closed Specialty Diagnoses / Procedures Referred By Sindi mejia Referred To Contact Nutrition Diagnoses Class 2 severe obesity with serious comorbidity and body mass index (BMI) of 39.0 to 39.9 in adult, unspecified obesity type (CMS/HCC) Maddie Kim MD [address] [place] [phone] Phone: tel: fax: Referral ID Status Reason Start Date Expiration Date V isits Requested Visits Authorized [id number] Closed Consult and Treat 04/06/2023 04/05/2024 1 1 Encounter Details Date Type Department Care Team (Late st Contact Info) Description 04/06/2023 Orders Only [facility] MEDICINE [address] [place] [address] [phone] Maddie Kim MD 230 [place] [address] Class 2 severe obesity with serious comorbidity and body mass index (BMI) of 39.0 to 39.9 in adult, unspecified obesity type (Primary Dx) Social History Tobacco Use Types Packs/Day Years [...] Description 03/28/2024 9:45 AM EST Office Visit [facility] MED[facility] 230 [place] [address] Maddie Kim MD 230 [place] [address] 04/18/2024 9:00 AM EST Nutrition [facility] DIABETES/NUTRITION 230 [place], [place] [phone] [address] [place] [address] Scheduled Referrals Name Type Priority Associated Diagnoses Orde r Schedule Referral to Nutrition Therapy Outpatient Referral Routine Class 2 severe obesity with serious comorbidity and body mass index (BMI) of 39.0 to 39.9 in adult, unspecified obesity type Expected: 04/06/2023 (Approximate), Expires: 04/06/2024 documented as of this encounter Procedures Procedure Name Priority Date/Time Associated Diagnosis Comments BI MAMMOGRAM SCREENING TOMOSYNTHESIS BILATERAL Routine 05/04/2023 4:02 PM EDT documented in this encounter Results * BI Mammogram Screening Tomosynthesis Bilateral (05/04/2023 4:02 PM EDT) Anatomical Region Laterality Modality Breast Bilateral Mammography 05/04/2023 4:02 PM EDT Narrative 05/26/2023 3:06 PM EDT ? [facility] ? [address] ?[place] [address] ? Mammography Report ? Signed ? Patient: Isaias,Atiya ?MR#: [id number] ? : 1975 ?Acct:[id number] ? Age/Sex: 47 / F ?ADM Date: 05/04/23 ? Loc: HO.MAMMO ? Attending Dr: Maddie Kim MD ? Ordering Physician: Maddie Kim ?Results: 1Negative ? Date of Service: 05/04/23 ?Follow Up: 1 Year From Orig ?? inal Mammogram ? Procedure(s): MM tomosynthesis screening BI ?? Accession Number(s): [id number] ? cc: Maddie Kim ? EXAMINATION: ?? [...] 1503 ? DD/ 1602 ? TD/TT: ? Psychiatric Technician: ? Procedure Note John Paul, Image - 05/26/2023 [facility] [address] [place] [address] [place] [address] Mammography Report Signed Patient: Zain Esparza#: [id number] : 1975Acct:[id number] Age/Sex: 47 / FADM Date: 05/04/23 Loc: MICHAEL Attending Dr: Maddie Kim MD Ordering Physician: Jaja Kimults: 1Negative Date of Service: 05/04/23Follow Up: 1 Year From [facility] Mammogram Procedure(s): MM tomosynthesis screening BI Accession Number(s): [id number] cc: Maddie Kim EXAMINATION: MM SCREENING DIGITAL [...] in OV> 05/26/23 1503 DD/ 1602 TD/TT: Psychiatric Technician: us Maddie Kim MD IMG BI PROCEDURES Final Result documented in this encounter Visit Diagnoses Diagnosis Class 2 severe obesity with serious comorbidity and body mass index (BMI) of 39.0 to 39.9 in adult, unspecified obesity type (CMS/HCC)- Primary documented in this encounter Additional Health Concerns Assessment Noted Time PHQ-9 Depression Total Score: 0 05/30/19 23 3:26 PM EDT documented as of this encounter Care Teams Spinneret Person Relationship Specialty Start Date End Date Maddie Kim MD [address] [place] [phone] PCP - General Family Medicine 07/12/20 Willie Gage 01/17/22 documented as of this encounter
--- OUTSIDE RECORDS SUMMARY | 2024-03-21 06:14 | XMS_ITS | Encounter Summary ---
Author Organization [employer] Address [address] [facility] 7t [place] [address] Care Team Providers Care Handbag Frames Inspector Name Role Phone Maddie Kim MD Primary Care Provider [phone] Reason for Visit * Reason Onset Date Comments Med Refill 03/19/2023 Encounter Details Date Type Department Care Team ([facility] Contact Info) Description 03/19/2023 Telephone [facility] MEDICINE 230 [place] [address] Maddie Kim MD 230 [place], [place] [phone] Med Refill Social History Tobacco Use Types Packs/Day Years [...] Miscellaneous Notes * Telephone Encounter - Maddie Crawford RN - 04/02/2023 5:00 PM EST Images from the original note were not included. Call to Pt with the information as written below. Pt agrees. MD Maddie Saravia RN; [facility] Team Nurses Caller: Unspecified (2 weeks ago) I wrote her a work excuse extending her time for remote work until 04/05/23 * Telephone Encounter - Maddie Crawford RN - 04/02/2023 3:02 PM EST Images from the original note were not included. Triage call regarding Pt portal message below. Pt continues to have symptoms of Covid. Pt was seen in [facility] 03/29/[address] Gonzalez and dx of Covid given then. Pt received an excuse for being out of work but, Pt symptoms continue past the note. Pt has been taking paxlovid and has one more day , will finishend of tomorrow. Pt reports diarrhea and fever of 100.2. Pt is working from home but, needs a note to be home instead of office through the . If Pt feels better sooner [facility] Advised Pt will send this request to PCP and team nurses for follow up. Excuse will be sent to Medical records dept and Pt will call there first thing morning of 03/04/23. Pt agrees with thisplan . Home care reviewed. Protocol Used: COVID-19 - Diagnosed or Suspected (Adult) Protocol-Based Disposition: Home Care Positive Triage Question: * COVID-19 diagnosed by positive lab test (e.g., PCR, rapid self-test kit) and mild symptoms (e.g.,cough, fever, others) and no complications or SOB * All higher-acuity triage questions were negative Care Advice Discussed: * Reassurance and Education - Diagnosed With COVID-19 by Doctor (or PASSENGER BRAKEMAN/PA) and Mild Symptoms * General Care Advice for COVID-19 Symptoms * Humidifier * Coughing Spells * Pain and Fever Medicines * Mild Stomach and Intestinal Symptoms During COVID-19 Illness Atiya [facility] (supporting Lorrie Alaniz RN) 7 hours ago (7:07 AM) Hello since last night I developed diarrea. Just wanted to know if it???s normal since I???m supposed to be getting better. I still had a fever last night. documented in this encounter Plan of Treatment Upcoming Encounters Date Type Department Care Team (Late st Contact Info) Description 03/28/2024 9:45 AM EST Office Visit [facility] MEDICINE [address] [place] [address] Maddie Kim MD [address] [place] [address] 04/18/2024 9:00 AM EST Nutrition [facility] DIABETES/NUTRITION [address] [place] [address] [place] [address] documented as of this encounter Visit Diagnoses Not on filedocumented in this encounter Additional Health Concerns Assessment Noted Time PHQ-9 Depression Total Score: 0 05/30/19 23 3:26 PM EDT documented as of this encounter Care Teams Handbag Frames Inspector Relationship Specialty Start Date End Date Maddie Kim MD 230 [place] [address] PCP - General Family Medicine 07/12/20 Willie Gage 01/17/22 documented as of this encounter
--- OUTSIDE RECORDS SUMMARY | 2024-03-21 06:14 | XMS_ITS | Encounter Summary ---
Author Organization [employer] Address [address] [facility] 7t [place] [address] Care Team Providers Care Videogame Tester Name Role Phone Maddie Kim MD Primary Care Provider [phone] Reason for Visit * Reason Comments Med Refill Encounter Details Date Type Department Care Team ([facility] st Contact Info) Description 03/18/2023 Refill [facility] [address] [place] [address] [phone] Maddie Kim MD [address] [place] [address] [phone] Social History Tobacco Use Types Packs/Day Years [...] Telephone Encounter - Maddie Kim MD - 03/19/2023 11:54 AM EST Sent tizanidine instead documented in this encounter Plan of Treatment Upcoming Encounters Date Type Department Care Team (Late st Contact Info) Description 03/28/2024 9:45 AM EST Office Visit [facility] MEDICINE [address] [place] [address] Maddie Kim MD 230 [place] [address] 04/18/2024 9:00 AM EST Nutrition [facility] DIABETES/NUTRITION [address] [place] [address] [place] [address] documented as of this encounter Visit Diagnoses Not on filedocumented in this encounter Additional Health Concerns Assessment Noted Time PHQ-9 Depression Total Score: 0 05/30/19 23 3:26 PM EDT documented as of this encounter Care Teams Videogame Tester Relationship Specialty Start Date End Date Maddie Kim MD [address] [place] [address] PCP - General Family Medicine 07/12/20 Willie Gage 01/17/22 documented as of this encounter
--- OUTSIDE RECORDS SUMMARY | 2024-03-21 06:14 | XMS_ITS | Encounter Summary ---
Author Organization [employer] Address [address] [facility] 7t [place] [address] Care Team Providers Care Inspector Wire Products Name Role Phone Maddie Kim MD Primary Care Provider [phone] Reason for Visit * Reason Comments Med Refill Encounter Details Date Type Department Care Team ([facility] st Contact Info) Description 04/05/2023 Refill [facility] [address] [place] [address] [phone] Isac Gonzalez MD [address] [place] [address] [phone] Chronic bilateral low back pain without sciatica [...] encounter Miscellaneous Notes * Telephone Encounter - Maya Gonzalez RN - 04/06/2023 12:46 PM EST TC to [facility] pharmacy, T3 RX written 03/29/23 for #45 tablets/14 days, pharmacy only dispensed #21 tablets/7 days d/t her insurance. Per Ed in pharmacy, she received another #21 tablets/7 day supply yesterday from the pharmacy. T3 refill not due until 04/12/23. * Telephone Encounter - Sunitha Abreu MD - 04/06/2023 12:27 PM EST Please f/u on refills with PCP thank you documented in this encounter Plan of Treatment Upcoming Encounters Date Type Department Care Team (Late st Contact Info) Description 03/28/2024 9:45 AM EST Office Visit [facility] MEDICINE [address] [place] [address] Maddie Kim MD 230 [place] [address] 04/18/2024 9:00 AM EST Nutrition [facility] DIABETES/NUTRITION [address] [place] [address] [place] [address] documented as of this encounter Visit Diagnoses Diagnosis Chronic bilateral low back pain without sciatica documented in this encounter Additional Health Concerns Assessment Noted Time PHQ-9 Depression Total Score: 0 05/30/19 23 3:26 PM EDT documented as of this encounter Care Teams Inspector Wire Products Relationship Specialty Start Date End Date Maddie iKm MD [address] [place] [address] PCP - General Family Medicine 07/12/20 Willie Caring 01/17/22 documented as of this encounter
--- OUTSIDE RECORDS SUMMARY | 2024-03-21 06:14 | XMS_ITS | Encounter Summary ---
Author Organization [employer] Address [address] [facility] 7t [place] [address] Care Team Providers Care Adviser Sales Name Role Phone Maddie Kim MD Primary Care Provider [phone] Encounter Details Date Type Department Care Team ([facility] st Contact Info) Description 03/19/2023 Orders Only [facility] MEDICINE 230 [place], [place] [phone] Maddie Kim MD 230 [place], [place] [phone] Herniated lumbar intervertebral disc (Primary Dx) Social History Tobacco Use Types [...] Description 03/28/2024 9:45 AM EST Office Visit [facility] MEDICINE [address] [place] [address] Maddie Kim MD [address] [place] [address] 04/18/2024 9:00 AM EST Nutrition [facility] DIABETES/NUTRITION [address] [place] [address] [address], RD [address] [place] [address] documented as of this encounter Visit Diagnoses Diagnosis Herniated lumbar intervertebral disc- Primary Displacement of lumbar intervertebral disc without myelopathy documented in this encounter Additional Health Concerns Assessment Noted Time PHQ-9 Depression Total Score: 0 05/30/19 23 3:26 PM EDT documented as of this encounter Care Teams Adviser Sales Relationship Specialty Start Date End Date Maddie Kim MD [address] [place] [address] PCP - General Family Medicine 07/12/20 Willie Gage 01/17/22 documented as of this encounter
--- OUTSIDE RECORDS SUMMARY | 2024-03-21 06:14 | XMS_ITS | Continuity of Care Document ---
Author Organization [employer] Address [address] [place] [phone] Care Team Providers Care Prop Cutter Name Role Phone HIM CCA OTHER Assessment Encounter Date Assessment Date Assessment LastModified by Organization Details LastModified Time 02/23/2024 02/23/2024 I provided real -time medical direction via phone for this encounter and was available for additional phone-based assistance as needed. I have reviewed and agree with the Assessment and Plan as documented by the Alfalfa Dehydrator Operator. Patient given the opportunity to ask questions. [...] The patient is now voiding normally. Per rehabilitation coordinator on the scene the patient has stable vitals and is afebrile currently after taking Tylenol. Known UTI and would continue to take the antibiotic prescribed as well as Tylenol. Discussed red flags. Medic request urine culture sent to [facility]. Allergies: Reviewed Not available 02/23/2024 16:20:42 Plan of Treatment Reminders Order Date Submit Date Provider Last Modified By Organization Details Last Modified Time Details Appointments None recorde d. Lab culture , urine 025 02/22/19 25 SABIHA H-art ([facility], [address] [place] [address], [place], [address], 04:41:56 Referral None recorde d. Procedures None recorde d. Surgeries None recorde d. Imaging None recorde d. Medication Orders None recorde d. Patient TargetsNo targets recorded. Patient InstructionsNo instructions recorded. Reason for Referral None Reported. Medical Equipment None Reported. Allergies Allergen ID Allergen Name Allergen Category Reaction Reaction Severity Criticality Documentation Date Start Date Code Code System Note Provider Name and Address Organization Details Recorded Time 90350 Dilantin medicatio n Not available Not available Not available 02/22/2024 0 [facility] 14:48:20 79494 sulfameth oxazole medicatio n Not available Not available Not available 02/22/2024 61014 Rx[facility] Not Available [facility] 14:48:20 25135 trimethop rim medicatio n Not available Not available Not available 02/22/2024 56177 RxNorm Not Available [facility] - production 5 14:48:20 95209 Product containin g penicilli n and antibioti c (product) medicatio n Not available Not available Not available 02/22/2024 90188 05 SNOMED Not Available [facility] 5 14:48:20 29035 penicilli n G benzathin e medicatio n Not available Not available Not available 02/22/2024 7982 RxNorm Not Available [facility] 5 14:48:20 17913 penicilli n G procaine medicatio n Not available Not available Not available 02/22/2024 7983 RxNorm Not Available [facility] 5 14:48:20 Medications Name Sig [...] Available No t Available Vitals Date Recorded Oxygen saturation Oxygen saturation in Arterial blood by Pulse oximetry Body temperature Body height Respiratory rate Heart rate Body weight Systolic blood pressure Diastolic blood pressure Provider Name and Address Organization Details Last Updated DateTime 5 98 % 98 % 98.4 [degF] 157.48 cm 19 /min 96 /min 137649. 712 g 125 mm[Hg] 82 mm[Hg] Not Available [facility] - production 5 14:39:11 Social History None recorded. Functional Status None recorded. Mental Status None recorded. Family History Nothing Reported. Medical History No medical history recorded. Gynecological HistoryNo gynecological history recorded. Obstetrics History GPAL:G 0 P 0 0 0 0 Past Encounters Encounter ID Performer Location Encounter Start Date Encounter Closed Date Diagnosis/Indication Diagnosis SNOMED-CT Code Diagnosis ICD10 Code Diagnosis Note [id number] KALYN YAO MD Main - [facility] [address] [place] [address] 02/22/2024 21:29:01 02/23/2024 18:48:12 Urinary symptoms 585114196 R39.9 Evaluation in the field was performed by my rehabilitation coordinator colleague, as noted above, I provided real-time [...] first dose was administer ed by the rehabilitation coordinator. -To alleviate the burning sensation, a prescripti [...] or flank pain or any other concerns. [id number] Fawn Coelho MD Main - [address] [phone] 02/23/2024 14:34:12 02/23/2024 18:56:04 Urinary symptoms 243671154 R39.9 Health Concerns Section Related Observation LastModified by Organization Detai ls LastModified Time None Recorded Concern Status LastModified by Organization Details LastModified Time None Recorded Payers Encounter Date Sequence Insurance Name Policy Number Policy Fernandez Covered Member ID Fernandez Member ID Guarantor Name 02/23/2024 1 [facility] - DOS ON OR AFTER 2022 - DUAL ELIGIBLE - CARE HOME OPTIONS AND ONE CARE (MEDICARE REPLACEMENT/ADV ANTAGE - HMO) Atiya Dotson [id number] Atiya Dotson Notes Date Note Type Note Provider Name and Address Organization Details Recorded Time 02/23/2024 text/html [facility] Nurse Triage Notes (Carley Dubose - MAJO): Reason For Request: Fever, UTI Symptoms Chief [...] fluids and will place a visit for today.Briana KASPER ...................... ...................... ...................... ...................... ...................... ...................... ......... Alfalfa Dehydrator Operator Note From Elias Garrison: Pt chief complaint today of fever/ uti symptoms going on for x 1 week. Pt was seen by [facility] personnel 1 day prior to her [facility] meeting today, urine dip was taken and positive for leukocytes and nitrates. [facility] medic was not able to acquire a [...] blurred vision. Pt has taken Tylenol before [facility] arrival for fever suppression.Nonneural focal exam, afebrile, vitals WNL, lungs are clear bilaterally. Benign abdominal assessment, no lower extremity edema noted. Pt is CAOX4 with GCS of 15. Urine culture acquired, no urine dip due to positivity yesterday[place] Fawn Coelho consultedPt informed, to continue taking her antibiotic which was prescribed prior to her [facility] visit today. Pt told to intake fluids and take 1 gram of Tylenol every 8 hours in a 24 hour period as needed for general aches and fever. Pt also educated on red flag S&S and informed to call emergency services if any present. ...................... ...................... ...................... ...................... ...................... ...................... ......... [facility] Consulted: Fawn Coelho ...................... ...................... ...................... ...................... ...................... ...................... ......... Disposition: Fulfilled Fawn Coelho MD [address] [facility], [place], [address], [employer] - [email or web address] 02/23/2024 16:21:22 OBGyn Episode No OBEpisode recorded.
--- OUTSIDE RECORDS SUMMARY | 2024-03-21 06:14 | XMS_ITS | Encounter Summary ---
Author Organization [employer] Address [address] [facility] 7t [place] [address] Care Team Providers Care Derrick Worker Well Service Name Role Phone Maddie Kim MD Primary Care Provider [phone] Reason for Visit * Reason Onset Date Comments Nurse Triage 05/14/2023 Encounter Details Date Type Department Care Team ([facility] st Contact Info) Description 05/14/2023 Telephone [facility] MEDICINE [address] [place], [place] [phone] Maddie Kim MD 230 [place], [place] [phone] Nurse Triage Social History Tobacco Use Types Packs/Day Years [...] encounter Miscellaneous Notes * Telephone Encounter - Mila Jean - 05/14/2023 2:56 PM EDT Symptoms: Leg Pain - Not From Injury, Numbness, Suicidal Thoughts Outcome: Schedule an urgent appointment (within 1 hour) or talk to a nurse or provider soon Reason: Caller denied all higher acuity questions The caller accepted this outcome Any questions to Destiny [phone] documented in this encounter Plan of Treatment Upcoming Encounters Date Type Department Care Team (Late st Contact Info) Description 03/28/2024 9:45 AM EST Office Visit [facility] MEDICINE [address] [place] [address] Maddie Kim MD [address] [place] [address] 04/18/2024 9:00 AM EST Nutrition [facility] DIABETES/NUTRITION [address] [place] [address] [place] [address] documented as of this encounter Visit Diagnoses Not on filedocumented in this encounter Additional Health Concerns Assessment Noted Time PHQ-9 Depression Total Score: 0 05/30/19 23 3:26 PM EDT documented as of this encounter Care Teams Derrick Worker Well Service Relationship Specialty Start Date End Date Maddie Kim MD [address] [place] [phone] PCP - General Family Medicine 07/12/20 Willie Gage 01/17/22 documented as of this encounter
--- OUTSIDE RECORDS SUMMARY | 2024-03-21 06:14 | XMS_ITS | Encounter Summary ---
Author Organization [employer] Address [address] [facility] 7t [place] [address] Care Team Providers Care Tray Filler Name Role Phone Maddie Kim MD Primary Care Provider [phone] Reason for Visit * Reason Onset Date Comments Med Refill 04/04/2023 Encounter Details Date Type Department Care Team ([facility] st Contact Info) Description 04/04/2023 Refill [facility] WALK-IN CENTER [address] [place] [address] [phone] Isac Gonzalez MD [address] [place], [place] [phone] Chronic bilateral low back pain without sciatica [...] Description 03/28/2024 9:45 AM EST Office Visit [facility] MEDICINE 230 [place] [address] Maddie Kim MD 230 [place] [address] 04/18/2024 9:00 AM EST Nutrition [facility] DIABETES/NUTRITION 230 [place] [address] [place] [address] documented as of this encounter Visit Diagnoses Diagnosis Chronic bilateral low back pain without sciatica documented in this encounter Additional Health Concerns Assessment Noted Time PHQ-9 Depression Total Score: 0 05/30/19 23 3:26 PM EDT documented as of this encounter Care Teams Tray Filler Relationship Specialty Start Date End Date Maddie Kim MD [address] [place] [id number] PCP - General Family Medicine 07/12/20 Willie Gage 01/17/22 documented as of this encounter
[2024-03-21 06:27] LABS: MANUAL DIFF FLAG NO
--- NOTE | 2024-03-21 06:28 | ECG_ITS ---
Test Reason : R/O QT PROLONGATION Blood Pressure : */* mmHG Vent. Rate : 84 BPM Atrial Rate : 84 BPM P-R Int : 176 ms QRS Dur : 90 ms QT Int : 374 ms P-R-T Axes : 61 37 43 degrees QTcB Int : 441 ms Normal sinus rhythm Normal ECG When compared with ECG of 28-Dec-2020 13:21, No significant changes seen Referred By: Mirtha Nagy Electronically Signed By: BOWEN RAMOS
[2024-03-21 06:34] LABS: Basophils Percent Auto 0.7 % (0-2); Eosinophils Absolute Auto 0.2 X10*3/uL (0.0-0.4); Eosinophils Percent Auto 3.8 % (0-4); Hematocrit 31.7 % (37.0-47.0); Hemoglobin 10.8 g/dl (12.0-16.0); Lymphocytes Percent Auto 47.3 % (20-40); Mean Corpuscular HGB Conc 34.1 g/dl (31.0-35.0); Mean Corpuscular Hemoglobin 25.4 pg (27.0-33.0); Mean Corpuscular Volume 74.4 fL (80.0-98.0); Mean Platelet Volume 9.9 fL (9.4-12.3); Monocytes Absolute Auto 0.6 X10*3/uL (0.1-1.2); Monocytes Percent Auto 14.8 % (2-11); Neutrophils Absolute Auto 1.4 x10*3/uL (2.0-8.3); Neutrophils Percent Auto 33.4 % (45-73); Platelet Count 279 X10*3/uL (160-400); Red Blood Count 4.26 X10*6/uL (4.20-5.50); Red Cell Distribution Width 13.9 % (11.0-16.0); White Blood Count 4.2 X10*3/uL (4.8-10.8)
[2024-03-21 06:42] LABS: Valproate 91.5 mcg/mL (50.0-100.0)
[2024-03-21 06:43] LABS: Estimated Average Glucose 74 mg/dL; Hemoglobin A1c % 4.2 % (<6.0); Total Hemoglobin (HGBA1C) 2792.9197 umol/L
[2024-03-21 07:06] LABS: Syphilis Screen Nonreactive (Nonreactive)
[2024-03-21 07:13] LABS: Erythrocyte Sedimentation Rate 2 MM/HR (0-20)
[2024-03-21 07:20] LABS: Folate 14.8 ng/mL (> or = 4.0); Vitamin B12 > 2000 pg/mL (200-900)
[2024-03-21 13:22] LABS: Alanine Aminotransferase 19 U/L (0-31); Albumin Level 4.3 g/dL (3.5-5.0); Alkaline Phosphatase 73 U/L (39-117); Anion Gap 16 (12-20); Aspartate Amino Transferase 23 U/L (5-31); Bilirubin Total 0.3 mg/dL (0.0-1.0); Blood Urea Nitrogen 10 mg/dL (9-16); Calcium 9.7 mg/dL (8.4-10.2); Carbon Dioxide 23 mmol/L (22-29); Chloride 90 mmol/L (96-108); Cholesterol 147 mg/dL (<200); Estimated Glomerular Filt Rate > 60; Glucose Fasting 87 mg/dL (60-99); HDL Cholesterol 57 mg/dL (>40); Iron 53 mcg/dL (30-160); LDL Cholesterol Calculated 75 mg/dL (<100); Magnesium 2.1 mg/dL (1.6-2.6); Percent Iron Saturation 14 % (15-50); Sodium 125 mmol/L (135-145); Total Iron Binding Capacity 367 mcg/dL (228-428); Total Protein 7.6 g/dL (6.5-8.0); Triglycerides 77 mg/dL (<150); Unsaturated Iron Binding 314 ug/dL
[2024-03-21 13:43] LABS: Free T4 (Free Thyroxine) 1.05 ng/dL (0.71-1.85); Vitamin D 25-OH Total 27.2 ng/mL (>30)
[2024-03-21 14:34] LABS: Gamma Glutamyl Transpeptidase 58 U/L (7-33); Uric Acid 4.3 mg/dL (2.4-5.7)
[2024-03-22 23:09] LABS: Prolactin 45.5 ng/mL
[2024-03-27 08:53] LABS: Carnitine Esters 12 umol/L (4-13); Carnitine, Free 50 umol/L (19-48); Carnitine, Total 62 umol/L (25-58); Esterified/Free 0.24 umol/L (0.13-0.42)
[2024-03-30 15:33] LABS: Vitamin B1 41 nmol/L (8-30)
== END 2024-03-21 06:11 | disposition home or self-care (01) ==
LOC: HO.LAB 06:10
PROVIDERS: PCP General Practice; Visit Provider Psychiatry & Neurology Psychiatry
DX: F31.30 Bipolar disorder, current episode depressed, mild or moderate severity, unspecified (principal); Z13.1 Encounter for screening for diabetes mellitus
CPT/HCPCS: 36415; 80053; 80061; 80164; 82306; 82379; 82607; 82746; 82977; 83036; 83090; 83540; 83735; 84146; 84425; 84439; 84443; 84550; 85025; 85652; 86140; 86780; 93005

== ENCOUNTER → 2024-03-21 06:28 | Outpatient (BNV) | payer OTHER, SELFPAY | PROVIDERS: PCP General Practice; Visit Provider Internal Medicine | DX: Z13.6 Encounter for screening for cardiovascular disorders (principal) | CPT/HCPCS: 93010 ==

== ENCOUNTER 2024-03-25 09:03 | Outpatient (REF) | payer OTHER, SELFPAY ==
--- OUTSIDE RECORDS SUMMARY | 2024-03-25 09:30 | XMS_ITS | Encounter Summary ---
Author Organization [employer] Address [address] [place] [address] 7t [place] [address] Care Team Providers Care Infusion Pharmacist Name Role Phone Maddie Kim MD Primary Care Provider [phone] Reason for Visit * Reason Onset Date Comments FYI 02/15/2024 Encounter Details Date Type Department Care Team ([facility] Contact Info) Description 02/15/2024 Telephone [facility] MEDICINE [address] [place], [place] [phone] Maddie Kim MD 230 [place], [place] [phone] FY Social History Tobacco Use Types Packs/Day [...] any questions you can contact Lauren at [phone]. documented in this encounter Plan of Treatment Upcoming Encounters Date Type Department Care Team (Late st Contact Info) Description 03/26/2024 3:30 PM EST Office Visit [facility] MEDICINE [address] [place] [address] Maddie Kim MD [address] [place] [address] 04/18/2024 9:00 AM EST Nutrition [facility] DIABETES/NUTRITION 230 [place], [place] [phone] Rosie Vick [address] 230 [place] [address] documented as of this encounter Visit Diagnoses Not on filedocumented in this encounter Additional Health Concerns Assessment Noted Time PHQ-9 Depression Total Score: 3 06/15/19 24 11:48 AM EDT documented as of this encounter Care Teams Infusion Pharmacist Relationship Specialty Start Date End Date Maddie Kim MD [address] [place] [address] PCP - General Family Medicine 07/12/20 Willie Gage 01/17/22 documented as of this encounter
--- OUTSIDE RECORDS SUMMARY | 2024-03-25 09:30 | XMS_ITS | Encounter Summary ---
Author Organization [employer] Address [address] [place] [address] 7t [place] [address] Care Team Providers Care Soda Clerk Name Role Phone Maddie Kim MD Primary Care Provider [phone] Reason for Visit * Reason Onset Date Comments c/b request 11/10/2022 Encounter Details Date Type Department Care Team ([facility] st Contact Info) Description 11/10/2022 Telephone [facility] MEDICINE [address] [place] [address] [phone] Maddie Kim MD 230 [place], [place] [phone] c/b request Social History Tobacco Use Types [...] year supply. * Telephone Encounter - Padmini Mcnally - 11/10/2022 4:26 PM EDT Tc from [facility] with willie gage requesting a call in regards to medication reconciliation. Please contact [facility] at [phone] documented in this encounter Plan of Treatment Upcoming Encounters Date Type Department Care Team (Late st Contact Info) Description 03/26/2024 3:30 PM EST Office Visit [facility] MEDICINE [address] [place] [address] Maddie Kim MD 230 [place] [address] 04/18/2024 9:00 AM EST Nutrition [facility] DIABETES/NUTRITION [address] [place] [address] Rosie Vick, HSANICE [address] [place] [address] documented as of this encounter Visit Diagnoses Diagnosis Gastroesophageal reflux disease without esophagitis Esophageal reflux documented in this encounter Additional Health Concerns Assessment Noted Time PHQ-9 Depression Total Score: 0 05/30/19 23 3:26 PM EDT documented as of this encounter Care Teams Soda Clerk Relationship Specialty Start Date End Date Maddie Kim MD [address] [place] [address] [phone] PCP - General Family Medicine 07/12/20 Willie Gage 01/17/22 documented as of this encounter
--- OUTSIDE RECORDS SUMMARY | 2024-03-25 09:30 | XMS_ITS | Encounter Summary ---
Author Organization [employer] Address [address] [facility] 7t [place] [address] Care Team Providers Care Meal Miller Name Role Phone Maddie Kim MD Primary Care Provider [phone] Reason for Visit * Reason Onset Date Comments Med Refill 03/04/2024 Encounter Details Date Type Department Care Team ([facility] st Contact Info) Description 03/04/2024 Refill [facility] MEDICINE 230 [place], [place] [phone] Maddie Kim MD 230 [place], [place] [phone] Social History Tobacco Use Types Packs/Day Years [...] 100 MG capsule To be sent to: [facility] [address] [place] [phone]. documented in this encounter Plan of Treatment Upcoming Encounters Date Type Department Care Team (Late st Contact Info) Description 03/26/2024 3:30 PM EST Office Visit [facility] MEDICINE [address] [place] [address] Maddie Kim MD [address] [place] [address] 04/18/2024 9:00 AM EST Nutrition [facility] DIABETES/NUTRITION [address] [place] [address] [place] [address] documented as of this encounter Visit Diagnoses Not on filedocumented in this encounter Additional Health Concerns Assessment Noted Time PHQ-9 Depression Total Score: 3 06/15/19 24 11:48 AM EDT documented as of this encounter Care Teams Meal Miller Relationship Specialty Start Date End Date Maddie Kim MD [address] [place] [address] PCP - General Family Medicine 07/12/20 Willie Gage 01/17/22 documented as of this encounter
--- OUTSIDE RECORDS SUMMARY | 2024-03-25 09:30 | XMS_ITS | Encounter Summary ---
Author Organization [employer] Address [address] [facility] 7t [place] [address] Care Team Providers Care Public Relations Assistant Name Role Phone Maddie Kim MD Primary Care Provider [phone] Reason for Visit * Reason Onset Date Comments NUTRITION APPT REQUEST 03/20/2024 Encounter Details Date Type Department Care Team ([facility] Contact Info) Description 03/20/2024 Telephone [facility] MEDICINE 230 [place] [address] [place], [place] [phone] NUTRITION APPT REQUEST Social History Tobacco Use [...] Description 03/26/2024 3:30 PM EST Office Visit [facility] MEDICINE [address] [place] [phone] Maddie Kim MD 230 [place] [address] 04/18/2024 9:00 AM EST Nutrition [facility] DIABETES/NUTRITION [address] [place] [phone] Rosie Vick, SHANICE 230 [place] [address] documented as of this encounter Visit Diagnoses Not on filedocumented in this encounter Additional Health Concerns Assessment Noted Time PHQ-9 Depression Total Score: 3 06/15/19 24 11:48 AM EDT documented as of this encounter Care Teams Public Relations Assistant Relationship Specialty Start Date End Date Maddie Kim MD [address] [place] [address] PCP - General Family Medicine 07/12/20 Willie Gage 01/17/22 documented as of this encounter
--- OUTSIDE RECORDS SUMMARY | 2024-03-25 09:30 | XMS_ITS | Encounter Summary ---
Author Organization [employer] Address [address] [facility] 7t [place] [address] Care Team Providers Care Licensed Mental Health Professional Name Role Phone Maddie Kim MD Primary Care Provider [phone] Reason for Visit * Reason Onset Date Comments verbal order 03/04/2024 Encounter Details Date Type Department Care Team ([facility] Contact Info) Description 03/04/2024 Telephone [facility] MEDICINE [address] [place], [place] [phone] Maddie Kim MD 230 [place], [place] [phone] verbal order Social History Tobacco Use Types [...] 03/04/2024 2:28 PM EST [facility] [...] Description 03/26/2024 3:30 PM EST Office Visit [facility] MEDICINE [address] [place] [address] Maddie Kim MD [address] [place] [address] 04/18/2024 9:00 AM EST Nutrition [facility] DIABETES/NUTRITION [address] [place] [address] [place] [address] documented as of this encounter Visit Diagnoses Not on filedocumented in this encounter Additional Health Concerns Assessment Noted Time PHQ-9 Depression Total Score: 3 06/15/19 24 11:48 AM EDT documented as of this encounter Care Teams Licensed Mental Health Professional Relationship Specialty Start Date End Date Maddie Kim MD 230 [place] [address] PCP - General Family Medicine 07/12/20 Willie Gage 01/17/22 documented as of this encounter
--- OUTSIDE RECORDS SUMMARY | 2024-03-25 09:30 | XMS_ITS | Encounter Summary ---
Author Organization [employer] Address [address] [place] [address] 7t [place] [address] Care Team Providers Care Lpn Rn Name Role Phone Maddie Kim MD Primary Care Provider [phone] Encounter Details Date Type Department Care Team (Late Contact Info) Description 03/30/2022 Abstract [facility] MEDICINE [address] [place] [address] [phone] Maddie Kim MD [address] [place] [address] [phone] Social History Tobacco Use Types Packs/Day Years [...] Description 03/26/2024 3:30 PM EST Office Visit [facility] MEDICINE [address] [place] [address] [phone] Maddie Kim MD [address] [place] [address] [phone] 04/18/2024 9:00 AM EST Nutrition [facility] DIABETES/NUTRITION [address] [place] [address] [phone] Rosie Vick, RD 230 [place] [address] documented as of this encounter Visit Diagnoses Not on filedocumented in this encounter Care Teams Lpn Rn Relationship Specialty Start Date End Date Maddie Kim MD 230 [place] [address] PCP - General Family Medicine 07/12/20 Willie Gage 01/17/22 documented as of this encounter
--- OUTSIDE RECORDS SUMMARY | 2024-03-25 09:30 | XMS_ITS | Data Portability ---
Author Organization [email or web address], [employer] Address [address] [place] [phone] Care Team Providers Care Safety And Security Officer Name Role Phone HIM [facility] OTHER [facility] OTHER Assessment Encounter Date Assessment Date Assessment LastModified by Organization Details LastModified Time 02/23/2024 02/23/2024 I provided real -time medical direction via phone for this encounter and was available for additional phone-based assistance as needed. I have reviewed and agree with the Assessment and Plan as documented by the Glassware Maker. Patient given the opportunity to ask questions. [...] The patient is now voiding normally. Per rod finisher on the scene the patient has stable vitals and is afebrile currently after taking Tylenol. Known UTI and would continue to take the antibiotic prescribed as well as Tylenol. Discussed red flags. Medic request urine culture sent to [facility]. Allergies: Reviewed Not available 02/23/2024 16:20:42 02/26/2024 02/26/2024 I have reviewed and agree with the assessment and plan as documented by the rod finisher. I provided real-time medical direction for this encounter and was immediately available to provide additional phone-based assistance as needed. History as noted in EMR and by rod finisher. I would add / emphasize: Patient seen [...] None recorded. Lab culture, urine [address] [facility], [address] [place], [address], 5 15:02:19 urinalysis , dipstick 2024 025 [facility], [address] [place] [address], [phone], 5 07:58:13 culture, urine 2024 025 [place], [address] [place] [address], Mohinder B, [place], [address], 5 04:41:56 culture, urine 2024 025 [place] [facility], [address] [place], [address], 5 08:07:59 rapid flu (A+B) 2024 025 [facility], [address] [place] [address], [phone], 5 08:13:58 rapid SARS CoV 2 Ag, QL IA, respirator y specimen 2024 025 [facility], [address] [place] [address], [id number], 5 08:13:39 urinalysis , dipstick 2024 025 [facility], [address] [place], [address], 16:34:28 culture, urine 2024 025 [place] [facility], [address] [place], [address], 20:06:10 Referral None recorded. Procedures None recorded. Surgeries None recorded. Imaging None recorded. Medication Orders Macrobid 100 mg capsule 2024 025 [facility][id number], [address] [place], [address], 5 21:48:16 Macrobid 100 mg capsule 2024 025 [facility], [address] [place], [address], 5 22:18:22 Macrobid 100 mg capsule 2024 025 [facility], [address] [place], [address], 5 21:49:28 phenazopyr idine 100 mg tablet 2024 025 [facility] #1026, [address] [place], [address], 5 21:48:19 Patient TargetsNo targets recorded. Patient InstructionsNo instructions recorded. Reason for Referral None Reported. Results Created Date Observation Date Name Description Value Unit Range Abnormal Flag Note LastModifiedBy Organization Detail LastModifiedTime 02/22/19 25 02/26/2024 CULTU RE, URINE , ROUTI NE culture, urine, routine SEE NOTE CULTU RE, URINE , ROUTI NE Micro Numbe r: [id number] Test Statu s: Final Speci men Sourc e: Urine Speci men Quali ty: Adequ ate Resul t: No Growt h Not Available [facility] [address] [place] [address] [address], [place], [address], 02/26/2024 04:41:56 02/25/1902/29/2024 URINE CULTU RE,CO MPREH ENSIV E urine culture,comp rehensive Final report Not Available [facility] ([facility]) [address] [facility], [place], [address], 02/29/2024 10:06:00 02/25/1902/29/2024 URINE CULTU RE,CO MPREH ENSIV E result 1 COMMEN T No growt h in 36 - 48 hours . Not Available [facility] ([facility]) [address] [facility], [place], [address], 02/29/2024 10:06:00 Result Notes None recorded. Medical Equipment None Reported. Allergies Allergen ID Allergen Name Allergen Category Reaction Reaction Severity Criticality Documentation Date Start Date Code Code System Note Provider Name and Address Organization Details Recorded Time 28063 Dilantin medicatio n Not available Not available Not available 02/22/2024 55726 0 RxNorm Not Available [facility] - production 14:48:20 30095 sulfameth oxazole medicatio n Not available Not available Not available 02/22/2024 27113 RxNorm Not Available [facility] - production 14:48:20 36248 trimethop rim medicatio n Not available Not available Not available 02/22/2024 30703 RxNorm Not Available [facility] - production 14:48:20 81350 Product containin g penicilli n and antibioti c (product) medicatio n Not available Not available Not available 02/22/2024 32651 05 SNOMED Not Available [facility] - production 14:48:20 33179 penicilli n G benzathin e medicatio n Not available Not available Not available 02/22/2024 7982 RxNorm Not Available [facility] - production 14:48:20 11004 penicilli n G procaine medicatio n Not [...] 5 102 /min 98.8 [degF] 14 /min 600364. 08 g 98 % 98 % 130 mm[Hg] 82 mm[Hg] Not Available [facility] 5 21:29:05 Date Recorded Oxygen saturation Oxygen saturation in Arterial blood by Pulse oximetry Body temperature Body height Respiratory rate Heart rate Body weight Systolic blood pressure Diastolic blood pressure Provider Name and Address Organization Details Last Updated DateTime 5 98 % 98 % 98.4 [degF] 157.48 cm 19 /min 96 /min 349832. 712 g 125 mm[Hg] 82 mm[Hg] Not Available [facility] 5 14:39:11 Date Recorded Body temperature Heart rate Respiratory rate Oxygen saturation Oxygen saturation in Arterial blood by Pulse oximetry Systolic blood pressure Diastolic blood pressure Provider Name and Address Organization Details Last Updated DateTime 5 100.9 [degF] 90 /min 16 /min 95 % 95 % 123 mm[Hg] 85 mm[Hg] Not Available [facility] 5 11:22:20 Date Recorded Respiratory rate Body temperature Oxygen saturation Oxygen saturation in Arterial blood by Pulse oximetry Heart rate Systolic blood pressure Diastolic blood pressure Provider Name and Address Organization Details Last Updated DateTime 5 16 /min 98.2 [degF] 100 % 100 % 99 /min 124 mm[Hg] 84 mm[Hg] Not Available [facility] [employer] 5 13:03:07 Social History None recorded. Functional Status None recorded. Mental Status None recorded. Family History Nothing Reported. Medical History No medical history recorded. Gynecological HistoryNo gynecological history recorded. Obstetrics History GPAL:G 0 P 0 0 0 0 Past Encounters Encounter ID Performer Location Encounter Start Date Encounter Closed Date Diagnosis/Indication Diagnosis SNOMED-CT Code Diagnosis ICD10 Code Diagnosis Note [id number] ARIEL YAO MD [facility] [address] [place] [phone] 02/22/2024 21:29:01 02/23/2024 18:48:12 Urinary symptoms 253652818 R39.9 Evaluation in the field was performed by my rod finisher colleague, as noted above, I provided real-time [...] first dose was administer ed by the rod finisher. -To alleviate the burning sensation, a prescripti [...] or flank pain or any other concerns. [id number] Fawn Coelho MD [facility] [address] [place] [phone] 02/23/2024 14:34:12 02/23/2024 18:56:04 Urinary symptoms 322082183 R39.9 [id number] Aramis Gallardo MD [facility] [address] [place] [id number] 02/26/2024 11:22:16 02/28/2024 11:56:29 Urinary symptoms [id number] R39.9 Fever [id number] R50.9 [id number] Jessica Hadley MD [facility] [address] [place] [phone] 03/23/2024 13:03:05 03/23/2024 13:41:00 Urinary symptoms [id number] R39.9 As noted, we were called to see this patient regarding concerns of urinary symptoms. Evaluation in the field was performed by my rod finisher colleague, as noted above, I provided real-time direction and supervisio n for this visit. The evaluation revealed 48yo woman with HTN, DM, PTSD who has had recurrent urinary discomfort . She had symptoms about 1 month ago, resolved and now returned since . She primarily has dysuria and suprapubic tenderness . She has no fevers, chills, n/v.She had a bladder lift several years ago but has not seen a urologist since. She takes azo without relief. We reviewed her medication s and she is on HCTZ and prazosin which may exacerbate her symptoms. Her VS and exam are unremarkab le. Her UA is not consistent with infection. Impression :Urinary urgency Plan:Tamia nued Azo, fluids. Would discuss stopping/r eplacing HCTZ and prazosin. Agree with urologist follow up. Dispositio n: We discussed the diagnostic uncertaint [...] new or worsening serious symptoms, particular ly changes to consciousn ess, chest pain, dypsnea. Health Concerns Section Related Observation LastModified by Organization Detai ls LastModified Time None Recorded Concern Status LastModified by Organization Details LastModified Time None Recorded Advance Directives Directive None Recorded Payers Encounter Date Sequence Insurance Name Policy Number Policy Fernandez Covered Member ID Fernandez Member ID Guarantor Name 02/22/2024 1 [facility] [employer] - DOS ON OR AFTER 2022 - DUAL ELIGIBLE - FPC OPTIONS AND ONE CARE (MEDICARE REPLACEMENT/ADV ANTAGE - HMO) Atiya Dotson [id number] Atiya Dotson 02/23/2024 1 [facility] [employer] - DOS ON OR AFTER 2022 - DUAL ELIGIBLE - FPC OPTIONS AND ONE CARE (MEDICARE REPLACEMENT/ADV ANTAGE - HMO) Atiya Dotson [id number] Atiya Dotson 02/26/2024 1 [facility] - DOS ON OR AFTER 2022 - DUAL ELIGIBLE - FPC OPTIONS AND ONE CARE (MEDICARE REPLACEMENT/ADV ANTAGE - HMO) Atiya Dotson [id number] Atiya Dotson 03/23/2024 1 [facility] [employer] - DOS ON OR AFTER 2022 - DUAL ELIGIBLE - FPC OPTIONS AND ONE CARE (MEDICARE REPLACEMENT/ADV ANTAGE - HMO) Atiya Dotson [id number] Atiya Dotson Notes Date Note Type Note [...] any additional information to process this visit. Glassware Maker Organization Information for Summer Del [employer] Legal Name: [email or web address] Address: [address] [place] [address], Residential Property Consultant: Benjy COLON No.: [id number] Glassware Maker POC Test Results from [employer] [facility] [...] ...................... ...................... ...................... ...................... ...................... ...................... ......... Glassware Maker Note From Summer Del Rio: Disp for [...] enough for a culture sample. Consulted with [facility] Dr. Yao. Dr. Yao confirmed UTI with urine dipstick results. Dr. Yao ordered 100mgs of Macrobid PO. Dr. Yao sent antibiotic and Pyridium to pharmacy. Dr. Yao advised patient to stop drinking caffeine and increase fluids as much as possible. Dr. Yao advised patient if UTI symptoms do not improved on antibiotic in one to two days, schedule another appointment with [facility] for urine culture. Patient understood. Patient administered 100mgs of macrobid PO. Patient educated on red flags/risk factors. All times approx.. ...................... ...................... ...................... ...................... ...................... ...................... ......... [facility] Consulted: Ariel Yao ...................... ...................... ...................... ...................... ...................... ...................... ......... Disposition: Lizette ARIEL YAO MD [address] [facility],[address], [place], [address], [employer] 02/22/2024 22:29:56 02/23/2024 text/html CRC Nurse Triage [...] ...................... ...................... ...................... ...................... ...................... ...................... ......... Glassware Maker Note From Elias Garrison: Pt chief complaint today of fever/ uti symptoms going on for x 1 week. Pt was seen by [facility] personnel 1 day prior to her [facility] meeting today, urine dip was taken and positive for leukocytes and nitrates. [facility] medic was not able to acquire a [...] Pt has taken Tylenol before [facility] arrival for fever suppression.Nonneural focal exam, afebrile, vitals WNL, lungs are clear bilaterally. Benign abdominal assessment, no lower extremity edema noted. Pt is CAOX4 with GCS of 15. Urine culture acquired, no urine dip due to positivity yesterday.[facility] Fawn Coelho consultedPt informed, to continue taking her antibiotic which was prescribed prior to her [facility] visit today. Pt told to intake fluids and take 1 gram of Tylenol every 8 hours in a 24 hour period as needed for general aches and fever. Pt also educated on red flag S&S and informed to call emergency services if any present. ...................... ...................... ...................... ...................... ...................... ...................... ......... [facility] Consulted: Fawn Coelho ...................... ...................... ...................... ...................... ...................... ...................... ......... Disposition: Fulfilled Fawn Coelho MD [address] [facility],[address], [place], [address], ARIELLE CHRISTIANSEN 02/23/2024 16:21:22 02/26/2024 text/html CRC Nurse Triage Notes ([place], Tami - RN): Chief Complaints: Common cold symptoms, Cough, Headache [...] relief. She would like to be evaluated. Glassware Maker Organization Information for Christel Sandro Velez HILDA Business Legal Name: [facility] [employer] Address: [address] [place] [address], [place] [address], Residential Property Consultant: Jeff Bautista MD [place] No.: [id number] Glassware Maker POC Test Results from [employer] Sandro Velez HILDA Rapid COVID antigen (11:21:01) COVID: - Rapid influenza antigen (11:21:02) Flu: - ...................... ...................... ...................... ...................... ...................... ...................... ......... Glassware Maker Note From Sandro Kearney: This 48-year-old female [...] negative. Repeat urine culture is sent to [facility]. I provided education on appropriate Tylenol dosing [...] ...................... ...................... ...................... ...................... ...................... ...................... ......... [facility] Consulted: Aramis Gallardo ...................... ...................... ...................... ...................... ...................... ...................... ......... Disposition: Fulfilled Aramis Gallardo MD [address] [facility],[address], [place], [address], [employer] 02/28/2024 06:38:26 03/23/2024 text/html CRC Nurse Triage Notes (Bari Salinas - RN): Reason For Request: Possible UTI. Urine problems lower stomach pain. Patient Reports: Painful urination; Frequent and increased urination with flank pain; Painful urination with or without fever; Inability to fully empty bladder Denies: Unable to void greater than 5 hours Fall or trauma that results in urinary incontinence in the setting of pain Fall or injury that results in incontinence in the absence of pain Lower back pain either unilateral or bilateral, unable to void, painful urination -hematuria Chief Complaints: Urinary symptoms PMH: Bipolar Disorder, Gastroesophageal Reflux Disease (GERD), Hypertension PMH Reviewed at 03/23/2024 Allergies Reviewed at 03/23/2024 Comments: Cap Blocker verified the Pt.'s name//address and phone number. Education provided on the response time and the Pt. was advised to monitor reported s/s and seek emergency treatment if needed Pt reports feeling unwell with UTI symptoms - S/S started in . Increased frequency/urgency and burning - Lower back pain - Denies urinary cloudiness and odor - Denies fever - Reports taking AZO Urinary Pain Relief and Tylenol for pain - Wellness visit requested Glassware Maker Organization Information for Sandro Kearney Business Legal Name: [facility] Transportation Address: [address] [place] [address], Residential Property Consultant: Jeff Bautista MD CLIA No.: [id number] Glassware Maker POC Test Results from [facility] Urine Dipstick (13:07:26) Urine leukocytes: trace LEXIE Urine nitrites: - NIT Urine urobilinogen: - URO Urine protein: - PRO Urine pH: 5.0 pH Urine blood: - BLO Urine specific gravity: 1.010 SG Urine ketones: - KET Urine bilirubin: - MARCEL Urine glucose: - GLU ...................... ...................... ...................... ...................... ...................... ...................... ......... Glassware Maker Note From Sandro Kearney: This 48-year-old female with a history including but not limited to bipolar disorder, GERD, HTN, PTSD requested a visit today to address four days of dysuria and suprapubic discomfort. Patient was recently treated for UTI four weeks ago. Patient states symptoms completely resolved from that UTI. Patient denies any flank pain, hematuria, fevers, nausea, vomiting, diarrhea. On file allergy list is confirmed. Patient presents awake and alert, in no acute distress. Her vital signs are reasonably stable and she is afebrile. Nonfocal neurological exam. Normal gait. Lungs are clear throughout auscultation. Mild suprapubic discomfort, abdomen otherwise benign. No CVA tenderness. No lower extremity edema. Urinalysis is not suggestive of infection. Urine culture will be sent to [facility]. I provided education on potential causes of her symptoms, including her current medications. I recommend she follows up with her urologist and primary care physician this week and present to the emergency department for any new or worsening severe symptoms such as high fever, uncontrollable nausea/vomiting, severe abdominal or flank pain, altered mental status. The patient was given the opportunity to ask questions and is agreeable to this plan. ...................... ...................... ...................... ...................... ...................... ...................... ......... [facility] Consulted: Jessica Hadley ...................... ...................... ...................... ...................... ...................... ...................... ......... Disposition: Fulfilled Jessica Hadley MD [address] [place] [address],[address], [place], [address], ARIELLE CHRISTIANSEN 03/23/2024 13:41:47 OBGyn Episode No OBEpisode recorded.
--- OUTSIDE RECORDS SUMMARY | 2024-03-25 09:30 | XMS_ITS | Encounter Summary ---
Author Organization [employer] Address [address] [place] [address] [address] [place] [address] Care Team Providers Care Industrial Sales Representative Name Role Phone Maddie Kim MD Primary Care Provider [phone] Encounter Details Date Type Department Care Team (Late st Contact Info) Description 01/27/2022 Telephone [facility] [address] [place] [phone] Maddie Kim MD [address] [place] [phone] Social History Tobacco Use Types Packs/Day Years [...] Department Care Team (Late Contact Info) Description 03/26/2024 3:30 PM EST Office Visit [facility] [address] [place] [phone] Maddie Kim MD [address] [place] [phone] 04/18/2024 9:00 AM EST Nutrition [facility] DIABETES/NUTRITION [address] [place] [phone] [place] [address] documented as of this encounter Visit Diagnoses Not on filedocumented in this encounter Care Teams Industrial Sales Representative Relationship Specialty Start Date End Date Maddie Kim MD [address] [place] [address] PCP - General Family Medicine 07/12/20 Willie Gage 01/17/22 documented as of this encounter
--- OUTSIDE RECORDS SUMMARY | 2024-03-25 09:30 | XMS_ITS | Encounter Summary ---
Author Organization [employer] Address [address] [place] [address] [address] [place] [address] Care Team Providers Care Staking Engineer Name Role Phone Maddie Kim MD Primary Care Provider [phone] Encounter Details Date Type Department Care Team (Late Contact Info) Description 07/05/2022 Orders Only [facility] [address] [place] [phone] Maddie Kim MD [address] [place] [address] [phone] Social History Tobacco Use Types Packs/Day Years [...] Description 03/26/2024 3:30 PM EST Office Visit [facility] [address] [place] [address] [phone] Maddie Kim MD [address] [place] [address] [phone] 04/18/2024 9:00 AM EST Nutrition [facility] DI[facility]ETES/NUTRITION [address] [place] [address] [place], [place] [phone] documented as of this encounter Visit Diagnoses Not on filedocumented in this encounter Additional Health Concerns Assessment Noted Time PHQ-9 Depression Total Score: 0 05/30/19 23 3:26 PM EDT documented as of this encounter Care Teams Staking Engineer Relationship Specialty Start Date End Date Maddie Kim MD [address] [place] [address] PCP - General Family Medicine 07/12/20 Willie Gage 01/17/22 documented as of this encounter
--- OUTSIDE RECORDS SUMMARY | 2024-03-25 09:30 | XMS_ITS | Encounter Summary ---
Author Organization [employer] Address [address] [facility] [address] [place] [address] Care Team Providers Care Conductor Symphonic Orchestra Name Role Phone Maddie Kim MD Primary Care Provider [phone] Reason for Visit * Reason Onset Date Comments Nutrition Medication Question 05/30/2023 Encounter Details Date Type Department Care Team ([facility] Contact Info) Description 05/30/2023 Telephone [facility] [address] [place], [place] [phone] Maddie Kim MD [address] [place], [place] [phone] Nutrition Medication Question Social History Tobacco Use [...] Description 03/26/2024 3:30 PM EST Office Visit [facility] [address] [place] [address] Maddie Kim MD [address] [place] [address] 04/18/2024 9:00 AM EST Nutrition [facility] DIABETES/NUTRITION [address] [place] [address] [place] [address] documented as of this encounter Visit Diagnoses Not on filedocumented in this encounter Additional Health Concerns Assessment Noted Time PHQ-9 Depression Total Score: 0 05/30/19 23 3:26 PM EDT documented as of this encounter Care Teams Conductor Symphonic Orchestra Relationship Specialty Start Date End Date Maddie Kim MD [address] [place] [address] PCP - General Family Medicine 07/12/20 Willie Caring 01/17/22 documented as of this encounter
--- OUTSIDE RECORDS SUMMARY | 2024-03-25 09:30 | XMS_ITS | Encounter Summary ---
Author Organization [employer] Address [address] [place] [address] 7t [place] [address] Care Team Providers Care Oil Expeller Operator Name Role Phone Maddie Kim MD Primary Care Provider [phone] Encounter Details Date Type Department Care Team (Late Contact Info) Description 04/11/2022 Abstract [facility] MEDICINE [address] [place] [address] [phone] Maddie Kim MD [address] [place] [address] [phone] Social History Tobacco Use Types Packs/Day Years [...] Description 03/26/2024 3:30 PM EST Office Visit [facility] MEDICINE [address] [place] [address] [phone] Maddie Kim MD [address] [place] [address] [phone] 04/18/2024 9:00 AM EST Nutrition [facility] DIABETES/NUTRITION [address] [place] [address] [phone] Rosei Vick, RD 230 [place] [address] documented as of this encounter Visit Diagnoses Not on filedocumented in this encounter Care Teams Oil Expeller Operator Relationship Specialty Start Date End Date Maddie Kim MD 230 [place] [address] PCP - General Family Medicine 07/12/20 Willie Gage 01/17/22 documented as of this encounter
--- OUTSIDE RECORDS SUMMARY | 2024-03-25 09:30 | XMS_ITS | Encounter Summary ---
Author Organization [employer] Address [address] [place] [address] 7t [place] [address] Care Team Providers Care Facetor Name Role Phone Maddie Kim MD Primary Care Provider [phone] Encounter Details Date Type Department Care Team (Late Contact Info) Description 11/14/2022 Orders Only [facility] MEDICINE [address] [place] [address] Maddie Kim MD [address] [place] [address] [phone] Social History Tobacco Use Types Packs/Day Years [...] Description 03/26/2024 3:30 PM EST Office Visit [facility]INE [address] [place] [address] Maddie Kim MD [address] [place] [address] [phone] 04/18/2024 9:00 AM EST Nutrition [facility] DIABETES/NUTRITION 230 [place], [place] [phone] Rosie Vick [address] [place], [place] [phone] documented as of this encounter Visit Diagnoses Not on filedocumented in this encounter Additional Health Concerns Assessment Noted Time PHQ-9 Depression Total Score: 0 05/30/19 23 3:26 PM EDT documented as of this encounter Care Teams Facetor Relationship Specialty Start Date End Date Mdadie Kim MD 230 [place], [place] [phone] PCP - General Family Medicine 07/12/20 Willie Gage 01/17/22 documented as of this encounter
--- OUTSIDE RECORDS SUMMARY | 2024-03-25 09:30 | XMS_ITS | Encounter Summary ---
Author Organization [email or web address] Address [address] [facility] 7t [place] [address] Care Team Providers Care Administrative Office Manager Name Role Phone Maddie Kim MD Primary Care Provider [phone] Encounter Details Date Type Department Care Team ([facility] st Contact Info) Description 02/22/2024 Orders Only [facility] MEDICINE 230 [place], [place] [phone] Maddie Kim MD 230 [place], [place] [phone] Social History Tobacco Use Types Packs/Day Years [...] EST Office Visit [facility] MEDICINE [address] [place] [address] Maddie Kim MD 230 [place] [address] 04/18/2024 9:00 AM EST Nutrition [facility] DIABETES/NUTRITION 230 [place] [address] [place] [address] documented as of this encounter Visit Diagnoses Not on filedocumented in this encounter Additional Health Concerns Assessment Noted Time PHQ-9 Depression Total Score: 3 06/15/19 24 11:48 AM EDT documented as of this encounter Care Teams Administrative Office Manager Relationship Specialty Start Date End Date Maddie Kim MD [address] [place] [address] PCP - General Family Medicine 07/12/20 Willie Gage 01/17/22 documented as of this encounter
--- OUTSIDE RECORDS SUMMARY | 2024-03-25 09:30 | XMS_ITS | Encounter Summary ---
Author Organization [employer] Address 75 [facility] 7t [place] [address] Care Team Providers Care Circulation Crew Leader Name Role Phone Maddie Kim MD Primary Care Provider [phone] Encounter Details Date Type Department Care Team ([facility] st Contact Info) Description 07/29/2023 Orders Only [facility] 230 [place], [place] [phone] Maddie Kim MD 230 [place], [place] [phone] Social History Tobacco Use Types Packs/Day Years [...] Description 03/26/2024 3:30 PM EST Office Visit [facility] 230 [place] [address] Maddie Kim MD [address] [place] [address] 04/18/2024 9:00 AM EST Nutrition [facility] DIABETES/NUTRITION 230 [place] [address] [place] [address] documented as of this encounter Visit Diagnoses Not on filedocumented in this encounter Additional Health Concerns Assessment Noted Time PHQ-9 Depression Total Score: 3 06/15/19 24 11:48 AM EDT documented as of this encounter Care Teams Circulation Crew Leader Relationship Specialty Start Date End Date Maddie Kim MD [address] [place] [phone] PCP - General Family Medicine 07/12/20 Willie Gage 01/17/22 documented as of this encounter
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
--- OUTSIDE RECORDS SUMMARY | 2024-03-25 09:30 | XMS_ITS | Encounter Summary ---
Author Organization [employer] Address [address] [facility] 7t [place] [address] Care Team Providers Care Promotions Firm Accounts Manager Name Role Phone Maddie Kim MD Primary Care Provider [phone] Reason for Visit * Reason Onset Date Comments Call Back Request 07/26/2023 Encounter Details Date Type Department Care Team ([facility] Contact Info) Description 07/26/2023 Telephone [facility] MEDICINE [address] [place] [address] Maddie Kim MD 230 [place], [place] [phone] Call Back Request Social History Tobacco Use [...] 07/27/2023 9:31 AM EDT Tc returned to [facility], questioning pt.'s risperidone inj rx on med list they received. Looking back in chart, this was discontinued after inpatient hosp in 2020 due to noncompliance with injections. This was the last time it was prescribed. [facility] is requesting this is taken off our med list for accuracy, thank you! * Telephone Encounter - Zach Carlson - 07/26/2023 4:12 PM EDT Tc from [facility] with Willie Gage requesting a call back for a med reconciliation. Please contact [facility] at [phone]. documented in this encounter Plan of Treatment Upcoming Encounters Date Type Department Care Team (Late st Contact Info) Description 03/26/2024 3:30 PM EST Office Visit [facility] MEDICINE [address] [place] [address] Maddie Kim MD 230 [place] [address] 04/18/2024 9:00 AM EST Nutrition [facility] DIABETES/NUTRITION [address] [place] [address] [place] [address] documented as of this encounter Visit Diagnoses Not on filedocumented in this encounter Additional Health Concerns Assessment Noted Time PHQ-9 Depression Total Score: 3 06/15/19 24 11:48 AM EDT documented as of this encounter Care Teams Promotions Firm Accounts Manager Relationship Specialty Start Date End Date Maddie Kim MD [address] [place] [address] PCP - General Family Medicine 07/12/20 Willie Gage 01/17/22 documented as of this encounter
--- OUTSIDE RECORDS SUMMARY | 2024-03-25 09:30 | XMS_ITS | Encounter Summary ---
Author Organization [employer] Address 75 [facility] 7t [place] [address] Care Team Providers Care Networking Specialist Name Role Phone Maddie Kim MD Primary Care Provider [phone] Encounter Details Date Type Department Care Team ([facility] st Contact Info) Description 05/15/2023 Orders Only [facility] MEDICINE [address] [place], [place] [phone] Maddie Kim MD [address] [place], [place] [phone] Social History Tobacco Use Types Packs/Day Years [...] Description 03/26/2024 3:30 PM EST Office Visit [facility] MEDICINE [address] [place] [address] Maddie Kim MD [address] [place] [address] 04/18/2024 9:00 AM EST Nutrition [facility] DIABETES/NUTRITION [address] [place] [address] Rosie Vick, RD [address] [place] [address] documented as of this encounter Visit Diagnoses Not on filedocumented in this encounter Additional Health Concerns Assessment Noted Time PHQ-9 Depression Total Score: 0 05/30/19 23 3:26 PM EDT documented as of this encounter Care Teams Networking Specialist Relationship Specialty Start Date End Date Maddie Kim MD [address] [place] [address] PCP - General Family Medicine 07/12/20 Willie Caring 01/17/22 documented as of this encounter
--- OUTSIDE RECORDS SUMMARY | 2024-03-25 09:30 | XMS_ITS | Encounter Summary ---
Author Organization [employer] Address 75 [facility] 7t [place] [address] Care Team Providers Care Furnace Utility Operator Name Role Phone Maddie Kim MD Primary Care Provider [phone] Encounter Details Date Type Department Care Team ([facility] st Contact Info) Description 06/13/2023 Orders Only [facility] MED[facility]INE [address] [place], [place] [phone] Maddie Kim MD 230 [place], [place] [phone] Social History Tobacco Use Types Packs/Day Years [...] Description 03/26/2024 3:30 PM EST Office Visit [facility] [address] [place] [address] Maddie Kim MD [address] [place] [address] 04/18/2024 9:00 AM EST Nutrition [facility] DIABETES/NUTRITION [address] [place] [address] [place] [address] documented as of this encounter Visit Diagnoses Not on filedocumented in this encounter Additional Health Concerns Assessment Noted Time PHQ-9 Depression Total Score: 0 05/30/19 23 3:26 PM EDT documented as of this encounter Care Teams Furnace Utility Operator Relationship Specialty Start Date End Date Maddie Kim MD [address] [place] [address] PCP - General Family Medicine 07/12/20 Willie Gage 01/17/22 documented as of this encounter
--- OUTSIDE RECORDS SUMMARY | 2024-03-25 09:31 | XMS_ITS | Encounter Summary ---
Author Organization [employer] Address 75 [facility] 7t [place] [address] Care Team Providers Care Sanitarian Aide Name Role Phone Maddie Kim MD Primary Care Provider [phone] Reason for Visit * Reason Onset Date Comments Durable Medical Equipment 03/16/2022 Encounter Details Date Type Department Care Team ([facility] st Contact Info) Description 03/16/2022 Telephone [facility] MEDICINE [address] [place], [place] [phone] Maddie Kim MD 230 [place], [place] [phone] Durable Medical Equipment Social History Tobacco Use [...] it can fax to her landlord at [phone]. She would like the script to be to the [facility], [address] [place] [address] If any concerns please contact pt at [phone] documented in this encounter Plan of Treatment Upcoming Encounters Date Type Department Care Team (Late st Contact Info) Description 03/26/2024 3:30 PM EST Office Visit [facility] MEDICINE [address] [place] [address] Maddie Kim MD [address] [place] [address] 04/18/2024 9:00 AM EST Nutrition [facility] DIABETES/NUTRITION [address] [place] [address] Rosie Vick, SHANICE [address] [place] [address] documented as of this encounter Visit Diagnoses Not on filedocumented in this encounter Care Teams Sanitarian Aide Relationship Specialty Start Date End Date Maddie Kim MD [address] [place] [address] PCP - General Family Medicine 07/12/20 Willie Gage 01/17/22 documented as of this encounter
--- OUTSIDE RECORDS SUMMARY | 2024-03-25 09:31 | XMS_ITS | Encounter Summary ---
Author Organization [employer] Address 75 [facility] 7t [place] [address] Care Team Providers Care Vegetable I Farmworker Name Role Phone Maddie Kim MD Primary Care Provider [phone] Reason for Visit * Reason Onset Date Comments Medication Question 07/05/2022 Encounter Details Date Type Department Care Team ([facility] Contact Info) Description 07/05/2022 Telephone [facility] MEDICINE [address] [place], [place] [phone] Maddie Kim MD 230 [place], [place] [phone] Medication Question Social History Tobacco Use Types [...] Description 03/26/2024 3:30 PM EST Office Visit [facility] MEDICINE 230 [place] [address] Maddie Kim MD 230 [place] [address] 04/18/2024 9:00 AM EST Nutrition [facility] DIABETES/NUTRITION 230 [place] [address] [place] [address] documented as of this encounter Visit Diagnoses Diagnosis History of arthroplasty of right knee Arthropathy Unspecified arthropathy, site unspecified documented in this encounter Additional Health Concerns Assessment Noted Time PHQ-9 Depression Total Score: 0 05/30/19 23 3:26 PM EDT documented as of this encounter Care Teams Vegetable I Farmworker Relationship Specialty Start Date End Date Maddie Kim MD 230 [place] [address] PCP - General Family Medicine 07/12/20 Willie Gage 01/17/22 documented as of this encounter
--- OUTSIDE RECORDS SUMMARY | 2024-03-25 09:31 | XMS_ITS | Encounter Summary ---
Author Organization [employer] Address 75 [facility] 7t [place] [address] Care Team Providers Care Golf Course Superintendent Name Role Phone Maddie Kim MD Primary Care Provider [phone] Reason for Visit * Reason Onset Date Comments Med Refill 04/04/2023 Encounter Details Date Type Department Care Team ([facility] st Contact Info) Description 04/04/2023 Refill [facility] [address] [place] [address] [phone] Isac Gonzalez MD 230 [place], [place] [phone] Chronic bilateral low back pain without sciatica [...] 03/26/2024 3:30 PM EST Office Visit [facility] MEDICINE 230 [place] [address] Maddie Kim MD 230 [place] [address] 04/18/2024 9:00 AM EST Nutrition [facility] DIABETES/NUTRITION [address] [place] [address] Rosie Vick, SHANICE [address] [place] [address] documented as of this encounter Visit Diagnoses Diagnosis Chronic bilateral low back pain without sciatica documented in this encounter Additional Health Concerns Assessment Noted Time PHQ-9 Depression Total Score: 0 05/30/19 23 3:26 PM EDT documented as of this encounter Care Teams Golf Course Superintendent Relationship Specialty Start Date End Date Maddie Kim MD [address] [place] [address] PCP - General Family Medicine 07/12/20 Willie Gage 01/17/22 documented as of this encounter
--- OUTSIDE RECORDS SUMMARY | 2024-03-25 09:31 | XMS_ITS | Encounter Summary ---
Author Organization [employer] Address 75 [facility] 7t [place] [address] Care Team Providers Care Conservation Technician Name Role Phone Maddie Kim MD Primary Care Provider [phone] Reason for Visit * Reason Onset Date Comments Med Refill 03/19/2023 Encounter Details Date Type Department Care Team ([facility] Contact Info) Description 03/19/2023 Telephone [facility] MEDICINE 230 [place] [address] Maddie Kim MD 230 [place], [place] [phone] Med Refill Social History Tobacco Use Types [...] Pt agrees. MD Maddie Saravia RN; [facility] Team Nurses Caller: Unspecified (2 weeks ago) I wrote her a work excuse extending her time for remote work until 04/05/23 * Telephone Encounter - Maddie Crawford RN - 04/02/2023 3:02 PM EST Images from the original note were not included. Triage call regarding Pt portal message below. Pt continues to have symptoms of Covid. Pt was seen in [facility] 03/29/[address] Gonzalez and dx of [...] better sooner [facility] 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-19 by Doctor (or SANDWICH WRAPPER/PA) and Mild Symptoms * General Care Advice for COVID-19 Symptoms * Humidifier * Coughing Spells * Pain and Fever Medicines * Mild Stomach and Intestinal Symptoms During COVID-19 Illness Atiya Johnson [facility] Clinial Support (supporting Lorrie Alaniz [...] 3:30 PM EST Office Visit [facility] MEDICINE [address] [place] [address] Maddie Kim MD [address] [place] [address] 04/18/2024 9:00 AM EST Nutrition [facility] DIABETES/NUTRITION [address] [place] [phone] [place] [address] documented as of this encounter Visit Diagnoses Not on filedocumented in this encounter Additional Health Concerns Assessment Noted Time PHQ-9 Depression Total Score: 0 05/30/19 23 3:26 PM EDT documented as of this encounter Care Teams Conservation Technician Relationship Specialty Start Date End Date Maddie Kim MD 230 [place] [address] PCP - General Family Medicine 07/12/20 Willie Gage 01/17/22 documented as of this encounter
--- OUTSIDE RECORDS SUMMARY | 2024-03-25 09:31 | XMS_ITS | Encounter Summary ---
Author Organization [employer] Address [address] [place] [address] 7t [place] [address] Care Team Providers Care School Social Worker Name Role Phone Maddie Kim MD Primary Care Provider [phone] Encounter Details Date Type Department Care Team ([facility] Contact Info) Description 06/26/2022 Abstract [facility] MEDICINE [address] [place] [phone] Maddie Kim MD [address] [place] [address] [phone] Social History Tobacco Use Types Packs/Day Years [...] Upcoming Encounters Date Type Department Care Team ([facility] Contact Info) Description 03/26/2024 3:30 PM EST Office Visit [facility] MEDICINE 230 [place] [address] Maddie Kim MD 230 [place], [place] [phone] 04/18/2024 9:00 AM EST Nutrition [facility] DIABETES/NUTRITION 230 [place] [address] [place], [place] [phone] documented as of this encounter Visit Diagnoses Not on filedocumented in this encounter Additional Health Concerns Assessment Noted Time PHQ-9 Depression Total Score: 0 05/30/19 23 3:26 PM EDT documented as of this encounter Care Teams School Social Worker Relationship Specialty Start Date End Date Maddie Kim MD [address] [place] [phone] PCP - General Family Medicine 07/12/20 Willie Gage 01/17/22 documented as of this encounter
--- OUTSIDE RECORDS SUMMARY | 2024-03-25 09:31 | XMS_ITS | Encounter Summary ---
Author Organization [employer] Address 75 [facility] 7t [place] [address] Care Team Providers Care Equipment Analyst Name Role Phone Maddie Kim MD Primary Care Provider [phone] Reason for Visit * Reason Comments Med Refill Encounter Details Date Type Department Care Team ([facility] st Contact Info) Description 03/18/2023 Refill [facility] [address] [place] [address] [phone] Maddie Kim MD [address] [place] [address] [phone] Social History Tobacco Use Types Packs/Day Years [...] Description 03/26/2024 3:30 PM EST Office Visit [facility] MEDICINE [address] [place] [address] Maddie Kim MD 230 [place] [address] 04/18/2024 9:00 AM EST Nutrition [facility] DIABETES/NUTRITION [address] [place] [address] 230 [place] [address] documented as of this encounter Visit Diagnoses Not on filedocumented in this encounter Additional Health Concerns Assessment Noted Time PHQ-9 Depression Total Score: 0 05/30/19 23 3:26 PM EDT documented as of this encounter Care Teams Equipment Analyst Relationship Specialty Start Date End Date Maddie Kim MD [address] [place] [address] PCP - General Family Medicine 07/12/20 Willie Gage 01/17/22 documented as of this encounter
--- OUTSIDE RECORDS SUMMARY | 2024-03-25 09:31 | XMS_ITS | Encounter Summary ---
Author Organization [employer] Address [address] [place] [address] 7t [place] [address] Care Team Providers Care Satellite Dish Technician Name Role Phone Maddie Kim MD Primary Care Provider [phone] Reason for Visit * Reason Onset Date Comments Durable Medical Equipment 03/02/2022 Encounter Details Date Type Department Care Team ([facility] st Contact Info) Description 03/02/2022 Telephone [facility] MEDICINE [address] [place] [address] Shayna Pritchett, MAJO Durable Medical Equipment Social [...] send to L&C Please contact pt at [phone] documented in this encounter Plan of Treatment Upcoming Encounters Date Type Department Care Team (Late st Contact Info) Description 03/26/2024 3:30 PM EST Office Visit [facility] MEDICINE 230 [place] [address] Maddie Kim MD 230 [place], [place] [phone] 04/18/2024 9:00 AM EST Nutrition [facility] DIABETES/NUTRITION 230 [place], [place] [phone] Rosie Vick [address] [place] [address] documented as of this encounter Visit Diagnoses Not on filedocumented in this encounter Care Teams Satellite Dish Technician Relationship Specialty Start Date End Date Maddie Kim MD [address] [place] [address] PCP - General Family Medicine 07/12/20 Willie Gage 01/17/22 documented as of this encounter
--- OUTSIDE RECORDS SUMMARY | 2024-03-25 09:31 | XMS_ITS | Encounter Summary ---
Author Organization [employer] Address 75 [facility] 7t [place] [address] Care Team Providers Care Medical Lab Technologist Name Role Phone Maddie Kim MD Primary Care Provider [phone] Reason for Visit * Reason Comments Med Refill Encounter Details Date Type Department Care Team ([facility] st Contact Info) Description 04/12/2023 Refill [facility] [address] [place] [address] [phone] Isac Gonzalez MD 230 [place], [place] [phone] Chronic bilateral low back pain without sciatica [...] Description 03/26/2024 3:30 PM EST Office Visit [facility] MEDICINE [address] [place] [address] Maddie Kim MD [address] [place] [address] 04/18/2024 9:00 AM EST Nutrition [facility] DIABETES/NUTRITION [address] [place] [address] Rosie Vick, SHANICE [address] [place] [address] documented as of this encounter Visit Diagnoses Diagnosis Chronic bilateral low back pain without sciatica documented in this encounter Additional Health Concerns Assessment Noted Time PHQ-9 Depression Total Score: 0 05/30/19 23 3:26 PM EDT documented as of this encounter Care Teams Medical Lab Technologist Relationship Specialty Start Date End Date Maddie Kim MD [address] [place] [address] PCP - General Family Medicine 07/12/20 Willie Gage 01/17/22 documented as of this encounter
--- OUTSIDE RECORDS SUMMARY | 2024-03-25 09:31 | XMS_ITS | Encounter Summary ---
Author Organization [employer] Address 75 [facility] 7t [place] [address] Care Team Providers Care Pharmacy Manager Name Role Phone Maddie Kim MD Primary Care Provider [phone] Reason for Visit * Reason Onset Date Comments Med Refill 05/10/2023 Encounter Details Date Type Department Care Team ([facility] st Contact Info) Description 05/10/2023 Refill [facility] MEDICINE 230 [place], [place] [phone] Maddie Kim MD 230 [place], [place] [phone] Chronic bilateral low back pain without sciatica [...] 3:30 PM EST Office Visit [facility] MEDICINE [address] [place] [address] Maddie Kim MD 230 [place] [address] 04/18/2024 9:00 AM EST Nutrition [facility] DIABETES/NUTRITION 230 [place] [address] [place] [address] documented as of this encounter Visit Diagnoses Diagnosis Chronic bilateral low back pain without sciatica documented in this encounter Additional Health Concerns Assessment Noted Time PHQ-9 Depression Total Score: 0 05/30/19 23 3:26 PM EDT documented as of this encounter Care Teams Pharmacy Manager Relationship Specialty Start Date End Date Maddie Kim MD 230 [place] [address] PCP - General Family Medicine 07/12/20 Willie Gage 01/17/22 documented as of this encounter
--- OUTSIDE RECORDS SUMMARY | 2024-03-25 09:31 | XMS_ITS | Encounter Summary ---
Author Organization [employer] Address 75 [facility] 7t [place] [address] Care Team Providers Care Offline Editor Name Role Phone Maddie Kim MD Primary Care Provider [phone] Reason for Visit * Reason Onset Date Comments Med Refill 04/12/2023 Encounter Details Date Type Department Care Team ([facility] st Contact Info) Description 04/12/2023 Refill [facility] MEDICINE 230 [place], [place] [phone] Maddie Kim MD 230 [place], [place] [phone] Chronic bilateral low back pain without sciatica [...] Office Visit [facility] MEDICINE [address] [place] [phone] Maddie Kim MD [address] [place] [address] 04/18/2024 9:00 AM EST Nutrition [facility] DIABETES/NUTRITION [address] [place] [address] [place] [address] documented as of this encounter Visit Diagnoses Diagnosis Chronic bilateral low back pain without sciatica documented in this encounter Additional Health Concerns Assessment Noted Time PHQ-9 Depression Total Score: 0 05/30/19 23 3:26 PM EDT documented as of this encounter Care Teams Offline Editor Relationship Specialty Start Date End Date Maddie Kim MD [address] [place] [address] PCP - General Family Medicine 07/12/20 Willie Gage 01/17/22 documented as of this encounter
--- OUTSIDE RECORDS SUMMARY | 2024-03-25 09:31 | XMS_ITS | Encounter Summary ---
Author Organization [employer] Address [address] [place] [address] 7t [place] [address] Care Team Providers Care Broom Builder Name Role Phone Maddie Kim MD Primary Care Provider [phone] Reason for Referral * Consultation (Routine) - Closed Specialty Diagnoses / Procedures Referred By Sindi mejia Referred To Contact Nutrition Diagnoses Class 2 severe obesity with serious comorbidity and body mass index (BMI) of 39.0 to 39.9 in adult, unspecified obesity type (CMS/HCC) Maddie Kim MD [address] [place] [address] Phone: tel: fax: Referral ID Status Reason Start Date Expiration Date V isits Requested Visits Authorized [id number] Closed Consult and Treat 04/06/2023 04/05/2024 1 1 Encounter Details Date Type Department Care Team (Late st Contact Info) Description 04/06/2023 Orders Only [facility] MEDICINE [address] [place] [address] [phone] Maddie Kim MD 230 [place] [address] Class 2 severe obesity with serious comorbidity [...] 03/26/2024 3:30 PM EST Office Visit [facility] MEDICINE [address] [place] [address] Maddie Kim MD 230 [place] [address] 04/18/2024 9:00 AM EST Nutrition [facility] DIABETES/NUTRITION 230 [place], [place] [phone] Rosie Vick [address] [place] [address] Scheduled Referrals Name Type Priority Associated Diagnoses [...] EDT Narrative 05/26/2023 3:06 PM EDT ? [facility] [place] ? [address] ?[place] [address] ? Mammography Report ? Signed ? Patient: Isaias,Atiya ?MR#: [id number] ? : 1975 ?Acct:[id number] ? Age/Sex: 47 / F ?ADM Date: 05/04/23 ? Loc: HO.MAMMO ? Attending Dr: Maddie Kim MD ? Ordering Physician: Maddie Kim ?Results: 1Negative ? Date of Service: 05/04/23 ?Follow Up: 1 Year From Orig ?? inal Mammogram ? Procedure(s): MM tomosynthesis screening BI ?? Accession Number(s): [id number] ? cc: Maddie Kim ? EXAMINATION: ?? [...] 1503 ? DD/ 1602 ? TD/TT: ? Turkey Cleaner: ? Procedure Note John Paul, Image - 05/26/2023 [facility] [address] [place] [address] [place] [address] Mammography Report Signed Patient: Zain Esparza#: [id number] : 1975Acct:[id number] Age/Sex: 47 / FADM Date: 05/04/23 Loc: MICHAEL Attending Dr: Maddie Kim MD Ordering Physician: Jaja Kimults: 1Negative Date of Service: 05/04/23Follow Up: 1 Year From [facility] Mammogram Procedure(s): MM tomosynthesis screening BI Accession Number(s): [id number] cc: Maddie Kim EXAMINATION: MM SCREENING DIGITAL [...] in OV> 05/26/23 1503 DD/ 1602 TD/TT: Turkey Cleaner: us Maddie Kim MD IMG BI PROCEDURES [...] documented as of this encounter Care Teams Broom Builder Relationship Specialty Start Date End Date Maddie Kim MD [address] [place] [address] PCP - General Family Medicine 07/12/20 Willie Gage 01/17/22 documented as of this encounter
--- OUTSIDE RECORDS SUMMARY | 2024-03-25 09:31 | XMS_ITS | Encounter Summary ---
Author Organization [employer] Address 75 [facility] 7t [place] [address] Care Team Providers Care Fish Worm Grower Name Role Phone Maddie Kim MD Primary Care Provider [phone] Reason for Visit * Reason Onset Date Comments Med Refill 02/14/2023 Encounter Details Date Type Department Care Team ([facility] Contact Info) Description 02/14/2023 Refill [facility] [address] [place] [address] [phone] Maddie Kim MD 230 [place], [place] [phone] Social History Tobacco Use Types Packs/Day Years [...] Description 03/26/2024 3:30 PM EST Office Visit [facility] MEDICINE [address] [place] [address] Maddie Kim MD [address] [place] [address] 04/18/2024 9:00 AM EST Nutrition [facility] DIABETES/NUTRITION [address] [place] [address] Rosie Vick, SHANICE [address] [place] [address] documented as of this encounter Visit Diagnoses Not on filedocumented in this encounter Additional Health Concerns Assessment Noted Time PHQ-9 Depression Total Score: 0 05/30/19 23 3:26 PM EDT documented as of this encounter Care Teams Fish Worm Grower Relationship Specialty Start Date End Date Maddie Kim MD [address] [place] [address] PCP - General Family Medicine 07/12/20 Willie Gage 01/17/22 documented as of this encounter
--- OUTSIDE RECORDS SUMMARY | 2024-03-25 09:31 | XMS_ITS | Encounter Summary ---
Author Organization [employer] Address 75 [facility] 7t [place] [address] Care Team Providers Care Sawyer Helper Name Role Phone Maddie Kim MD Primary Care Provider Encounter Details Date Type Department Care Team ([facility] st Contact Info) Description 01/02/2024 Orders Only [facility] MEDICINE 230 [place], [place] [phone] Maddie Kim MD 230 [place], [place] [phone] Social History Tobacco Use Types Packs/Day Years [...] 3:30 PM EST Office Visit [facility] MEDICINE 230 [place] [address] Maddie Kim MD 230 [place] [address] 04/18/2024 9:00 AM EST Nutrition [facility] DIABETES/NUTRITION 230 [place] [address] [place] [address] documented as of this encounter Visit Diagnoses Not on filedocumented in this encounter Additional Health Concerns Assessment Noted Time PHQ-9 Depression Total Score: 3 06/15/19 24 11:48 AM EDT documented as of this encounter Care Teams Sawyer Helper Relationship Specialty Start Date End Date Maddie Kim MD [address] [place] [address] PCP - General Family Medicine 07/12/20 Willie Gage 01/17/22 documented as of this encounter
--- OUTSIDE RECORDS SUMMARY | 2024-03-25 09:31 | XMS_ITS | Continuity of Care Document ---
Author Organization [facility], [place] - [facility] Address [address] [place] [phone] Care Team Providers Care Tailor Women'S Garment Alteration Name Role Phone HIM [facility] OTHER [facility] OTHER [phone] Assessment No assessment recorded. Plan of Treatment Reminders Order Date Submit Date Provider Last Modified By Organization Details Last Modified Time Details Appointments None recorded. Lab urinalysis , dipstick 2024 025 [facility], [address] [place] [address], [id number], 16:34:28 culture, urine 2024 025 [place] [facility], [address] [place] [address], [address], 20:06:10 Referral None recorded. Procedures None recorded. [...] Name and Address Organization Details Recorded Time 36671 Dilantin medicatio n Not available Not available Not available 02/22/202431924 0 RxNorm Not Available [facility] - production 14:48:20 98789 sulfameth oxazole medicatio n Not available Not available Not available 02/22/2024 91933 RxNorm Not Available [facility] 14:48:20 70946 trimethop rim medicatio n Not available Not available Not available 02/22/2024 11140 RxNorm Not Available [facility] production 14:48:20 13854 Product containin g penicilli n and antibioti c (product) medicatio n Not available Not available Not available 02/22/2024 14256 05 SNOMED Not Available [facility] 14:48:20 09008 penicilli n G benzathin e medicatio n Not available Not available Not available 02/22/2024 7982 RxNorm Not Available [facility] 14:48:20 02156 penicilli n G procaine medicatio n Not available Not available Not available 02/22/2024 7983 RxNorm Not Available [facility] 14:48:20 Medications Name Sig Start Date Stop [...] Available No t Available Vitals Date Recorded Respiratory rate Body temperature Oxygen saturation Oxygen saturation in Arterial blood by Pulse oximetry Heart rate Systolic blood pressure Diastolic blood pressure Provider Name and Address Organization Details Last Updated DateTime 5 16 /min 98.2 [degF] 100 % 100 % 99 /min 124 mm[Hg] 84 mm[Hg] Not Available [facility] 5 13:03:07 Social History None recorded. Functional Status None recorded. Mental Status None recorded. Family History Nothing Reported. Medical History No medical history recorded. Gynecological HistoryNo gynecological history recorded. Obstetrics History GPAL:G 0 P 0 0 0 0 Past Encounters Encounter ID Performer Location Encounter Start Date Encounter Closed Date Diagnosis/Indication Diagnosis SNOMED-CT Code Diagnosis ICD10 Code Diagnosis Note [id number] KALYN YAO MD Main - [facility] [address] [place] [id number] 02/22/2024 21:29:01 02/23/2024 18:48:12 Urinary symptoms 973211456 R39.9 Evaluation in the field was performed by my assistant store manager trainee colleague, as noted above, I provided real-time [...] first dose was administer ed by the assistant store manager trainee. -To alleviate the burning sensation, a prescripti [...] or flank pain or any other concerns. [id number] Fawn Coelho MD Main - [facility] [address] [place] [id number] 02/23/2024 14:34:12 02/23/2024 18:56:04 Urinary symptoms [id number] R39.9 [id number] Aramis Gallardo MD Main - [facility] [address] [place] [id number] 02/26/2024 11:22:16 02/28/2024 11:56:29 Urinary symptoms [id number] R39.9 Fever [id number] R50.9 [id number] Jessica Hadley MD Main - [facility] [address] [place] [id number] 03/23/2024 13:03:05 03/23/2024 13:41:00 Urinary symptoms [id number] R39.9 As noted, we were called to see this patient regarding concerns of urinary symptoms. Evaluation in the field was performed by my assistant store manager trainee colleague, as noted above, I provided real-time [...] Member ID Fernandez Member ID Guarantor Name 03/23/2024 1 [facility] - DOS ON OR AFTER 2022 - DUAL ELIGIBLE - INTERMEDIATE OPTIONS AND ONE CARE (MEDICARE REPLACEMENT/ADV ANTAGE - HMO) Atiya Dotson [id number] Atiya Dotson Notes Date Note Type Note Provider Name and Address Organization Details Recorded Time 03/23/2024 text/html CRC Nurse Triage Notes (Bari [...] at 03/23/2024 Allergies Reviewed at 03/23/2024 Comments: Structural Steel Equipment Erector verified the Pt.'s name//address and phone number. [...] Tylenol for pain - Wellness visit requested Charge Entry Specialist Organization Information for Sandro Kearney Temporal Power Legal Name: [facility] Address: [address] [place] [address], Respiratory Therapy Assistant: Jeff Bautista MD [place] No.: [id number] Charge Entry Specialist POC Test Results from [employer] Urine Dipstick (13:07:26) Urine leukocytes: trace LEXIE Urine nitrites: - NIT Urine urobilinogen: - URO Urine protein: - PRO Urine pH: 5.0 pH Urine blood: - BLO Urine specific gravity: 1.010 SG Urine ketones: - KET Urine bilirubin: - MARCEL Urine glucose: - GLU ...................... ...................... ...................... ...................... ...................... ...................... ......... Charge Entry Specialist Note From Sandro Kearney: This 48-year-old female [...] ...................... ...................... ...................... ...................... ...................... ...................... ......... [facility] Consulted: Krones, Jessica ...................... ...................... ...................... ...................... ...................... ...................... ......... Disposition: Fulfilled Jessica Hadley MD [address] [facility],[address], [place], [address], [email or web address] [facility] 03/23/2024 13:41:47 OBGyn Episode No OBEpisode recorded.
--- OUTSIDE RECORDS SUMMARY | 2024-03-25 09:31 | XMS_ITS | Encounter Summary ---
Author Organization [employer] Address [address] [facility] 7t [place] [address] Care Team Providers Care Linen Keeper Name Role Phone Maddie Kim MD Primary Care Provider [phone] Reason for Visit * Reason Onset Date Comments Verbal orders/ Medication question 05/08/2023 Encounter Details Date Type Department Care Team ([facility] Contact Info) Description 05/08/2023 Telephone [facility] MEDICINE [address] [place], [place] [phone] Maddie Kim MD [address] [place], [place] [phone] Verbal orders/ Medication question Social History Tobacco [...] 05/09/2023 9:54 AM EDT TC placed to Alba at the [facility] and gave VO for snf for 3 times a week. Pt medications were also reconciled and pt reports using Viviscal OTC for hair growth and Calcium + VitD supplements. * Telephone Encounter - Toña Castillo - 05/08/2023 4:20 PM EDT Tc from [facility] requesting some verbal orders reconciliation for skill nursing 3 times a week. Alba is also requesting a call back to speak about patient's medications. documented in this encounter Plan of Treatment Upcoming Encounters Date Type Department Care Team (Late st Contact Info) Description 03/26/2024 3:30 PM EST Office Visit [facility] MEDICINE [address] [place] [address] Maddie Kim MD [address] [place] [address] 04/18/2024 9:00 AM EST Nutrition [facility] DIABETES/NUTRITION [address] [place] [address] [place] [address] documented as of this encounter Visit Diagnoses Not on filedocumented in this encounter Additional Health Concerns Assessment Noted Time PHQ-9 Depression Total Score: 0 05/30/19 23 3:26 PM EDT documented as of this encounter Care Teams Linen Keeper Relationship Specialty Start Date End Date Maddie Kim MD [address] [place] [address] PCP - General Family Medicine 07/12/20 Willie Caring 01/17/22 documented as of this encounter
--- OUTSIDE RECORDS SUMMARY | 2024-03-25 09:31 | XMS_ITS | Encounter Summary ---
Author Organization [employer] Address [address] [facility] 7t [place] [address] Care Team Providers Care Comb Fixer Name Role Phone Maddie Kim MD Primary Care Provider [phone] Reason for Visit * Reason Comments Med Refill Encounter Details Date Type Department Care Team ([facility] st Contact Info) Description 04/12/2023 Refill [facility] [address] [place] [address] [phone] Isac Gonzalez MD 230 [place], [place] [phone] Chronic bilateral low back pain without sciatica [...] Description 03/26/2024 3:30 PM EST Office Visit [facility] MEDICINE [address] [place] [address] Maddie Kim MD [address] [place] [address] 04/18/2024 9:00 AM EST Nutrition [facility] DIABETES/NUTRITION [address] [place] [address] Rosie Vick, SHANICE [address] [place] [address] documented as of this encounter Visit Diagnoses Diagnosis Chronic bilateral low back pain without sciatica documented in this encounter Additional Health Concerns Assessment Noted Time PHQ-9 Depression Total Score: 0 05/30/19 23 3:26 PM EDT documented as of this encounter Care Teams Comb Fixer Relationship Specialty Start Date End Date Maddie Kim MD [address] [place] [address] PCP - General Family Medicine 07/12/20 Willie Gage 01/17/22 documented as of this encounter
--- OUTSIDE RECORDS SUMMARY | 2024-03-25 09:31 | XMS_ITS | Encounter Summary ---
Author Organization [employer] Address [address] [facility] 7t [place] [address] Care Team Providers Care Manager Lighting Name Role Phone Maddie Kim MD Primary Care Provider [phone] Encounter Details Date Type Department Care Team ([facility] st Contact Info) Description 03/19/2023 Orders Only [facility] MEDICINE 230 [place], [place] [phone] Maddie Kim MD 230 [place], [place] [phone] Herniated lumbar intervertebral disc (Primary Dx) Social [...] Description 03/26/2024 3:30 PM EST Office Visit [facility] MEDICINE [address] [place] [phone] Maddie Kim MD [address] [place] [address] 04/18/2024 9:00 AM EST Nutrition [facility] DIABETES/NUTRITION [address] [place] [address] Rosie Vick, RD 230 [place] [address] documented as of this encounter Visit Diagnoses Diagnosis Herniated lumbar intervertebral disc- Primary Displacement of lumbar intervertebral disc without myelopathy documented in this encounter Additional Health Concerns Assessment Noted Time PHQ-9 Depression Total Score: 0 05/30/19 23 3:26 PM EDT documented as of this encounter Care Teams Manager Lighting Relationship Specialty Start Date End Date Maddie Kim MD [address] [place] [phone] PCP - General Family Medicine 07/12/20 Willie Gage 01/17/22 documented as of this encounter
--- OUTSIDE RECORDS SUMMARY | 2024-03-25 09:32 | XMS_ITS | Encounter Summary ---
Author Organization [employer] Address [address] [facility] 7t [place] [address] Care Team Providers Care Beater Out Name Role Phone Maddie Kim MD Primary Care Provider [phone] Encounter Details Date Type Department Care Team ([facility] st Contact Info) Description 03/24/2024 Telephone [facility] MEDICINE [address] [place], [place] [phone] Maddie Kim MD 230 [place], [place] [phone] Social History Tobacco Use Types Packs/Day Years [...] Telephone Encounter - Sheila Rene RN - 03/24/2024 3:29 PM EST TC placed to patient [phone] to inform patient, PCP would like patient to repeat BW tomorrow as per provider at [facility]. If sodium returns low again then hydrochlorothiazide will be held howeverthis is pending the sodium results. Patient advised RN will check for BW results tomorrow and return call to patient if results are received. Patient advised to be sure to attend appointment on 03/26/24. Patient to f/u PRN. [facility] note received and scanned into chart * Telephone Encounter - Stacy Encinas LPN - 03/24/2024 1:44 PM EST Incoming call to the Critical Result line 03/24/24 at 1:49 PM Name of Caller/Facility:Lauren Gage RN Callback number: [phone] Reason for Call: NA 125 Lauren KASPER reporting that Patient Sodium low at 125 as per lab draw done with Psych Provider date unknown at time of call. Psych provider Mirtha Carias to have patient redraw tomorrow but wants PCPto be updated as patient is on hydrochlorothiazide and Depakote. Patient seen this morning with RN visit no confusion was somewhat sleepy but had recent med changes that included increase in [place] gabapentin. BP today 110/70 HR 80. Message to be forwarded to Maddie Kim MD and team nurses for follow up. High Priority [employer] Chat Secure Message also sent to Red Team Nurses. documented in this encounter Plan of Treatment Upcoming Encounters Date Type Department Care Team (Late st Contact Info) Description 03/26/2024 3:30 PM EST Office Visit [facility] MEDICINE [address] [place] [address] Maddie Kim MD [address] [place] [address] 04/18/2024 9:00 AM EST Nutrition [facility] DIABETES/NUTRITION [address] [place] [address] Rosie Vick, SHANICE [address] [place] [address] documented as of this encounter Visit Diagnoses Not on filedocumented in this encounter Additional Health Concerns Assessment Noted Time PHQ-9 Depression Total Score: 3 06/15/19 24 11:48 AM EDT documented as of this encounter Care Teams Beater Out Relationship Specialty Start Date End Date Maddie Kim MD [address] [place] [address] [phone] PCP - General Family Medicine 07/12/20 Willie Gage 01/17/22 documented as of this encounter
--- OUTSIDE RECORDS SUMMARY | 2024-03-25 09:32 | XMS_ITS | Encounter Summary ---
Author Organization [employer] Address [address] [place] [address] 7t [place] [address] Care Team Providers Care Olive Brine Tester Name Role Phone Maddie Kim MD Primary Care Provider [phone] Reason for Visit * Reason Onset Date Comments NTTS 03/24/2024 Encounter Details Date Type Department Care Team ([facility] Contact Info) Description 03/24/2024 Telephone [facility] MEDICINE [address] [place], [place] [phone] Sheila Rene RN 230 [place] [address] NTTS Social History Tobacco Use Types Packs/Day Years [...] Encounter - Sheila Rene RN - 03/24/2024 12:39 PM EST RN received NTTS from 03/23/24 stating: I think I have another UTI and I need to speak with the on c Caller states she had a UTI last month. Is asking if there is some way [facility] can come to pt's house for urine sample. Believes she has another UTI. Pain and pressure when urinating, frequency, urgency. Denies fever, denies side if flank pain NTTS RN's advised patient to call [facility] in the AM for a consult. TC placed to patient [phone] who reports [facility] evaluated her on 03/22/24 and stated she does not have a UTI. Patient reports she was informed her pain is most likely related to her bladder mesh which was placed after her bladder lifting surgery in 2022. Patient also reports she is currently at a partial program and the provider ordered BW which patient completed on 03/21/24 via [facility] labs and her sodium returned low at 125. Patient reports the partial provider is having the patient repeat the BW on 03/25/24 to ensure sodium does not continue to drop. Patient is requesting an appointment with PCP to discuss sodium level and also request a referral to a urologist. RN has changed patients appointment to 03/26/24 at 3:30pm. Patient agreed to new appointment date and time. RN called [facility] [phone] to request visit note from 03/22/24 to be faxed to [phone]. RN also obtained [facility] labs from 03/21/24 and scanned into chart. documented in this encounter Plan of Treatment Upcoming Encounters Date Type Department Care Team (Late st Contact Info) Description 03/26/2024 3:30 PM EST Office Visit [facility] MEDICINE [address] [place], [place] [phone] Maddie Kim MD [address] [place] [address] 04/18/2024 9:00 AM EST Nutrition [facility] DIABETES/NUTRITION [address] [place], [place] [phone] Rosie Vick [address] [place] [address] documented as of this encounter Visit Diagnoses Not on filedocumented in this encounter Additional Health Concerns Assessment Noted Time PHQ-9 Depression Total Score: 3 06/15/19 24 11:48 AM EDT documented as of this encounter Care Teams Olive Brine Tester Relationship Specialty Start Date End Date Maddei Kim MD [address] [place] [address] [phone] PCP - General Family Medicine 07/12/20 Willie Gage 01/17/22 documented as of this encounter
--- OUTSIDE RECORDS SUMMARY | 2024-03-25 09:32 | XMS_ITS | Encounter Summary ---
Author Organization [employer] Address [address] [facility] 7t [place] [address] Care Team Providers Care Computer Teacher Name Role Phone Maddie Kim MD Primary Care Provider [phone] Reason for Visit * Reason Onset Date Comments Nurse Triage 05/14/2023 Encounter Details Date Type Department Care Team ([facility] st Contact Info) Description 05/14/2023 Telephone [facility] MEDICINE [address] [place], [place] [phone] Maddie Kim MD [address] [place], [place] [phone] Nurse Triage Social History Tobacco Use Types [...] accepted this outcome Any questions to Destiny [phone] documented in this encounter Plan of Treatment Upcoming Encounters Date Type Department Care Team (Late st Contact Info) Description 03/26/2024 3:30 PM EST Office Visit [facility] MEDICINE [address] [place] [address] Maddie Kim MD [address] [place] [address] 04/18/2024 9:00 AM EST Nutrition [facility] DIABETES/NUTRITION [address] [place] [address] [phone] [place] [address] documented as of this encounter Visit Diagnoses Not on filedocumented in this encounter Additional Health Concerns Assessment Noted Time PHQ-9 Depression Total Score: 0 05/30/19 23 3:26 PM EDT documented as of this encounter Care Teams Computer Teacher Relationship Specialty Start Date End Date Maddie Kim MD [address] [place] [address] PCP - General Family Medicine 07/12/20 Willie Gage 01/17/22 documented as of this encounter
--- OUTSIDE RECORDS SUMMARY | 2024-03-25 09:32 | XMS_ITS | Encounter Summary ---
Author Organization [employer] Address [address] [facility] 7t [place] [address] Care Team Providers Care Messenger Floorperson Name Role Phone Maddie Kim MD Primary Care Provider [phone] Reason for Visit * Reason Comments Med Refill Encounter Details Date Type Department Care Team ([facility] st Contact Info) Description 04/05/2023 Refill [facility] CENTER [address] [place] [address] [phone] Isac Gonzalez MD [address] [place] [address] [phone] Chronic bilateral low back pain without sciatica [...] - 04/06/2023 12:46 PM EST TC to [facility] pharmacy, T3 RX written 03/29/23 for #45 [...] Description 03/26/2024 3:30 PM EST Office Visit [facility] MEDICINE [address] [place] [address] Maddie Kim MD [address] [place] [address] 04/18/2024 9:00 AM EST Nutrition [facility] DIABETES/NUTRITION [address] [place] [address] [place] [address] documented as of this encounter Visit Diagnoses Diagnosis Chronic bilateral low back pain without sciatica documented in this encounter Additional Health Concerns Assessment Noted Time PHQ-9 Depression Total Score: 0 05/30/19 23 3:26 PM EDT documented as of this encounter Care Teams Messenger Floorperson Relationship Specialty Start Date End Date Maddie Kim MD [address] [place] [address] PCP - General Family Medicine 07/12/20 Willie Caring 01/17/22 documented as of this encounter
[2024-03-25 10:40] LABS: Potassium Urine Random 13.3 mmol/L
[2024-03-25 10:41] LABS: Blood Urea Nitrogen 14 mg/dL (9-16); Calcium 9.5 mg/dL (8.4-10.2); Estimated Glomerular Filt Rate > 60; Glucose Random 82 mg/dL (60-115); HCG Quantitative < 2 mIU/mL
[2024-03-25 10:46] LABS: Osmolality, Serum 248 mosm/kg (281-305)
[2024-03-25 10:47] LABS: Osmolality Urine 265 mosm/kg (373-1093)
[2024-03-25 14:14] LABS: Anion Gap 15 (12-20); Carbon Dioxide 23 mmol/L (22-29); Chloride 86 mmol/L (96-108); Potassium 4.8 mmol/L (3.3-5.1); Sodium 119 mmol/L (135-145)
== END 2024-03-25 09:04 | disposition home or self-care (01) ==
LOC: HO.LAB 09:03
PROVIDERS: PCP General Practice; Visit Provider Psychiatry & Neurology Psychiatry
DX: Z13.89 Encounter for screening for other disorder (principal)
CPT/HCPCS: 36415; 80048; 82570; 83930; 83935; 84133; 84300; 84702

== ENCOUNTER 2024-03-25 15:15 | Inpatient (IN) | payer OTHER, SELFPAY ==
[2024-03-25 15:21] VITALS: BP 178/82; PULSE 85; O2SAT 96
[2024-03-25 15:25] VITALS: BP 104/52; PULSE 83; RESP 16; TEMP 37.2; O2SAT 97; BMI 43.9
--- NOTE | 2024-03-25 15:31 | ECG_ITS ---
Test Reason : ABNORMAL LABS Blood Pressure : */* mmHG Vent. Rate : 79 BPM Atrial Rate : 79 BPM P-R Int : 180 ms QRS Dur : 86 ms QT Int : 382 ms P-R-T Axes : 45 4 10 degrees QTcB Int : 438 ms Normal sinus rhythm Normal ECG When compared with ECG of 21-Mar-2024 06:26, No significant change was found Referred By: Shelbi Mercer Electronically Signed By: Jose Wallace
--- NOTE | 2024-03-25 15:45 | ED_ITS ---
HPI - General Adult General Chief complaint: Recheck/Abnormal Lab/Rx Stated complaint: ABN LABS PER , PT C/O DIZZY,NAUSEA,MUSCLE CRAMPS Time Seen by Provider: 03/25/24 15:31 History of Present Illness ED Provider: Dr. Mercer HPI narrative: 48 y/o F patient; PMH bipolar disorder on Valproic Acid, alcohol use disorder (sober approx 3 weeks), HTN, cocaine use disorder; presents from home with concern for hyponatremia. The patient was referred to the emergency department by her PCP after sodium level 119 was found. It was previously 125 on 03/21/2024. Patient also had chloride 86, serum osm 248, urine osm 265, urine sodium 32. The patient otherwise reports: dizziness, nausea without vomiting. She denies: fever or chills, SOB, cough/congestion, diarrhea. Related Data Home Medications ?Medication ?Instructions ?Recorded ?Confirmed cyanocobalamin (vitamin B-12) 500 500 mcg DAILY 07/30/23 03/12/24 mcg tablet docusate sodium 100 mg capsule 100 mg PO BID 07/30/23 03/12/24 folic acid 1 mg tablet 1 mg PO DAILY 07/30/23 03/12/24 multivitamin 1 cap PO BID 07/30/23 03/12/24 paliperidone palmitate 234 mg/1.5 234 mg IM QMONTH 07/30/23 03/12/24 mL intramuscular syringe (Invega Sustenna) hydrochlorothiazide 25 mg tablet 25 mg PO DAILY 01/22/24 03/12/24 lisinopril 40 mg tablet 40 mg PO DAILY 01/22/24 03/12/24 minoxidil 2.5 mg tablet 1.25 mg PO DAILY 01/22/24 03/12/24 bisacodyl 5 mg tablet,delayed 10 mg PO BEDTIME 03/12/24 03/12/24 release (Dulcolax (bisacodyl)) calcium 600 mg capsule 1,200 mg PO DAILY 03/12/24 03/12/24 celecoxib 200 mg capsule (Celebrex) 200 mg PO BEDTIME 03/12/24 03/12/24 cyclobenzaprine 10 mg tablet 10 mg PO TID 03/12/24 03/12/24 magnesium citrate 125 mg capsule 250 mg PO DAILY 03/12/24 03/12/24 metformin 500 mg tablet,extended 1,000 mg PO QPM 03/12/24 03/12/24 release 24hr (osmotic) naltrexone microspheres 380 mg 380 mg IM QMONTH 03/12/24 03/12/24 intramuscular suspension,extended release (Vivitrol) thiamine HCl (vitamin B1) 100 mg 100 mg PO DAILY 03/12/24 03/12/24 tablet Previous Rx's ?Medication ?Instructions ?Recorded divalproex 500 mg tablet,delayed 1,000 mg (2 x 500 mg) PO BID 30 04/04/21 release days #120 tabs omeprazole 20 mg capsule,delayed 20 mg PO DAILY 30 days #30 caps 04/04/21 release prazosin 5 mg capsule 5 mg PO BEDTIME 30 days #30 caps 04/04/21 gabapentin 600 mg tablet See Rx Instructions .Route 03/17/24 .COMPLEX #60 tabs topiramate 50 mg tablet 25 - 50 mg (0.5 - 1 x 50 mg) PO 03/17/24 .daily in evening as directed #20 tabs cholecalciferol (vitamin D3) 50 100 mcg (2 x 50 mcg (2,000 unit)) 03/24/24 mcg (2,000 unit) tablet (Vitamin PO DAILY #60 tabs D3) quetiapine 50 mg tablet (Seroquel) 50 mg PO BEDTIME #30 tabs 03/24/24 Allergies Allergy/AdvReac Type Severity Reaction Status Date / Time hydromorphone Allergy Intermediate Rash Verified 03/25/24 15:27 acyclovir Allergy Unknown Unknown Verified 03/25/24 15:27 insect venom [INSECT BITES] Allergy Unknown Difficulty Verified 03/25/24 15:27 Breathing sulfamethoxazole Allergy Unknown Anaphylaxis Verified 03/25/24 15:27 [From BACTRIM] trimethoprim [From BACTRIM] Allergy Unknown Anaphylaxis Verified 03/25/24 15:27 Penicillins [PCN] Allergy Rash Verified 03/25/24 15:27 Review of Systems 2 Review of Systems: Yes all other systems are reviewed and are negative PMFSH Past Medical History Attestation statement: The following information was validated with the patient. Source: old records reviewed Medical History Lumbar herniated disc Trigger finger Carpal tunnel syndrome Bowel obstruction Abdominal wall ulcer LGSIL on Pap smear of cervix PTSD (post-traumatic stress disorder) Cocaine abuse Baclofen overdose Bipolar 1 disorder, manic, moderate Alcohol abuse Substance abuse Psychiatric diagnosis Hypertension Surgical History History of ankle surgery History of carpal tunnel surgery of right wrist Total knee replacement status H/O removal of cyst Gastric bypass status for obesity Hx of tubal ligation History of stress incontinence procedure using tension free vaginal tape History of knee replacement procedure of right knee History of cholecystectomy History of ankle surgery Family History Family History Family/Other Breast cancer Maternal Aunt Cervical cancer Social History Social History Household Members: None Household Members Other:: lives by self Housing: Apartment Do you presently have visiting nurse or other home services: No Unable to assess alcohol history related to: Unknown Alcohol intake: unknown Comment: 1:1 sitter for safety Patient Tobacco Use Status: Current everyday Tobacco user Tobacco use type: Cigarette Cigarette Packs Per Day: 1 Cigarettes Per Day: 32 Smoked in Last 30 Days: Yes e-Cigarette/Vaping Use: Currently Using Second Hand Smoke Exposure: No Use of substances other than those prescribed or required for medical reasons: No Substance Use Type: Marijuana Advance Directives: Yes Advance Directives on File: Yes Advance Directives Date on File: 03/18/21 Do you have a plan to hurt others: No Plan service: No 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al status: unemployed 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 handed/ [employer] Sexual orientation: Bisexual Physical Exam ED Vital Signs: Vital Signs - 24 hr 03/25/24 15:25 Temperature 99.0 F Pulse Rate 83 Respiratory Rate 16 Blood Pressure 104/52 L Pulse Oximetry 97 Oxygen Delivery Method Room Air BMI result Body Mass Index 43.9 Patient is afebrile and hemodynamically stable. Const General: cooperative and no acute distress HENMT Head: Yes normal to inspection and Yes atraumatic Eyes General: appearance normal, both eyes and all related structures Pupils: Equal, round and reactive pupils present EOM: EOMs intact bilaterally Neck Neck: Yes normal visual inspection, Yes supple and No tender Chest Chest palpation & inspection: normal inspection of the chest and normal palpation of entire chest wall Resp Effort & Inspection: normal respiratory effort, able to speak in complete sentences, no cough and no respiratory distress Auscultation: clear to auscultation bilaterally Cardio Rate: regular rate Rhythm: regular rhythm Peripheral pulses: Peripheral pulses 2+ throughout GI Inspection: Yes normal to inspection, No Abdominal wall edema and No distended Palpation (GI): Soft to palpation, not firm, nontender, no guarding and not rigid Auscultation: normal bowel sounds Back/Spine/Pelvis Back: No back tenderness Neuro Cranial nerves: Yes Equal, round and reactive pupils present Course Course Course Narrative: Patient is afebrile and hemodynamically stable. Will repeat CBC, CMP, magnesium level and obtain respiratory swab with EKG. Labs reviewed. Repeat sodium 119. Potassium 5.3. Chloride 86. Patient requires admission for lab monitoring and close observation. Discussed with hospitalist. Hospitalist requested ICU consultation. Plan: Admit to ICU for hyponatremia, hyperkalemia Condition: Stable Medical Decision Making Lab Data 03/25/24 15:46 03/25/24 15:46 Labs: Lab Results 03/25/24 03/25/24 03/25/24 Range/Units 15:46 16:00 16:22 WBC 8.2 (4.8-10.8) X10*3/uL RBC 4.42 (4.20-5.50) X10*6/uL Hgb 11.2 L (12.0-16.0) g/dl Hct 32.2 L (37.0-47.0) % MCV 72.9 L (80.0-98.0) fL MCH 25.3 L (27.0-33.0) pg MCHC 34.8 (31.0-35.0) g/dl RDW 13.4 (11.0-16.0) % Plt Count 248 (160-400) X10*3/uL MPV 10.7 (9.4-12.3) fL Immature Gran % (Auto) 0.2 (0.0-0.4) % Neut % (Auto) 58.8 (45-73) % Lymph % (Auto) 28.6 (20-40) % [place] % (Auto) 10.5 (2-11) % Eos % (Auto) 1.5 (0-4) % Baso % (Auto) 0.4 (0-2) % Lymph # (Auto) 2.3 (1.2-4.9) X10*3/uL [place] # (Auto) 0.9 (0.1-1.2) X10*3/uL Eos # (Auto) 0.1 (0.0-0.4) X10*3/uL Baso # (Auto) 0.0 (0.0-0.2) X10*3/uL Abs Immat Gran (auto) 0.02 (0.00-0.03) X10*3/uL Absolute Neuts (auto) 4.8 (2.0-8.3) x10*3/uL Absolute Nucleated RBC 0.000 (0.0-0.012) X10*3/uL Nucleated RBC % (auto) 0.0 (0.0-0.2) /100WBC Hold Blue Top SEE NOTE Sodium 119 L* (135-145) mmol/L Potassium 5.3 H (3.3-5.1) mmol/L Chloride 86 L (96-108) mmol/L Carbon Dioxide 26 (22-29) mmol/L Anion Gap 12 (12-20) BUN 14 (9-16) mg/dL Creatinine 0.78 (0.5-1.4) mg/dL Estim Creat Clear Calc 104.6 Estimated GFR > 60 Random Glucose 71 (60-115) mg/dL Calcium 9.3 (8.4-10.2) mg/dL Magnesium 2.4 (1.6-2.6) mg/dL Total Bilirubin 0.3 (0.0-1.0) mg/dL AST 33 H (5-31) U/L ALT 11 (0-31) U/L Alkaline Phosphatase 78 (39-117) U/L Total Protein 8.1 H (6.5-8.0) g/dL Albumin 4.3 (3.5-5.0) g/dL Valproic Acid 85.9 (50.0-100.0) mcg/mL Influenza Type A (PCR) NEGATIVE (Negative) Influenza Type B (PCR) NEGATIVE (Negative) RSV RNA Qual (PCR) NEGATIVE (Negative) SARS-CoV-2 RNA (RT-PCR) NEGATIVE (Negative) Independent Interpretation I performed an independent interpretation of an: EKG Interpretation: NSR 79BPM without ischemic changes Discharge Plan Discharge Clinical Impression: Hyponatremia, Hyperkalemia Patient Disposition: Admitted As Inpatient Print Language: Armenian
[2024-03-25 15:57] LABS: MANUAL DIFF FLAG NO
[2024-03-25 16:11] LABS: Basophils Percent Auto 0.4 % (0-2); Eosinophils Absolute Auto 0.1 X10*3/uL (0.0-0.4); Eosinophils Percent Auto 1.5 % (0-4); Hematocrit 32.2 % (37.0-47.0); Hemoglobin 11.2 g/dl (12.0-16.0); Imm Gran Abs Auto 0.02 X10*3/uL (0.00-0.03); Imm Gran Pct Auto 0.2 % (0.0-0.4); Lymphocytes Absolute Auto 2.3 X10*3/uL (1.2-4.9); Lymphocytes Percent Auto 28.6 % (20-40); Mean Corpuscular HGB Conc 34.8 g/dl (31.0-35.0); Mean Corpuscular Hemoglobin 25.3 pg (27.0-33.0); Mean Corpuscular Volume 72.9 fL (80.0-98.0); Mean Platelet Volume 10.7 fL (9.4-12.3); Monocytes Absolute Auto 0.9 X10*3/uL (0.1-1.2); Monocytes Percent Auto 10.5 % (2-11); Neutrophils Absolute Auto 4.8 x10*3/uL (2.0-8.3); Neutrophils Percent Auto 58.8 % (45-73); Platelet Count 248 X10*3/uL (160-400); Red Blood Count 4.42 X10*6/uL (4.20-5.50); Red Cell Distribution Width 13.4 % (11.0-16.0); White Blood Count 8.2 X10*3/uL (4.8-10.8)
[2024-03-25 16:48] LABS: Influenza A PCR NEGATIVE (Negative); Influenza B PCR NEGATIVE (Negative); Resp Syncy Virus RNA Qual PCR NEGATIVE (Negative); SARS COV2 PCR INHOUSE NEGATIVE (Negative)
[2024-03-25 16:48] LABS: Alanine Aminotransferase 11 U/L (0-31); Albumin Level 4.3 g/dL (3.5-5.0); Alkaline Phosphatase 78 U/L (39-117); Anion Gap 12 (12-20); Aspartate Amino Transferase 33 U/L (5-31); Bilirubin Total 0.3 mg/dL (0.0-1.0); Blood Urea Nitrogen 14 mg/dL (9-16); Calcium 9.3 mg/dL (8.4-10.2); Carbon Dioxide 26 mmol/L (22-29); Chloride 86 mmol/L (96-108); Creatinine Clr Calc Pharmacy 104.6; Estimated Glomerular Filt Rate > 60; Glucose Random 71 mg/dL (60-115); Magnesium 2.4 mg/dL (1.6-2.6); Potassium 5.3 mmol/L (3.3-5.1); Sodium 119 mmol/L (135-145); Total Protein 8.1 g/dL (6.5-8.0)
[2024-03-25 16:56] LABS: Valproate 85.9 mcg/mL (50.0-100.0)
[2024-03-25 18:30] VITALS: BP 90/63; PULSE 75; RESP 16; O2SAT 98
[2024-03-25] MEDS: Nicotine Polacrilex 2 MG GUM BUCCAL ×2 (18:59→22:34)
--- NOTE | 2024-03-25 18:59 | PHA.MEDREC ---
Pharmacy Consult ? Medication Reconciliation Pharmacy has completed the medication reconciliation. Spoke to patient to confirm medication list. Patient verified she takes gabapentin 600 mg in the morning, 600 mg in the afternoon and 1200 mg at bedtime. She said she last got the Invega Sustena on 03/12/24. For the multivitamin, she takes it twice a day, quetiapine 50 mg at bedtime and may take 1 more tablet as needed, topiramate 50 mg in the evening after dinner. She doesn't remember if she takes vitamin B1 nor the last dose of vivitrol but she's sure she's not due for vivitrol any time soon. Last dose of medications was this morning 03/25/24.
[2024-03-25 19:22] VITALS: BP 97/53; PULSE 76; RESP 14; TEMP 37.2
[2024-03-25] MEDS: 0.9 % Sodium Chloride 1,000 ML 999 ML IV (19:52)
--- NOTE | 2024-03-25 19:55 | P.HPHOSP_ITS ---
History of Present Illness Date of Service: 03/25/24 Attending physician on admission: Jorden Eid Chief Complaint: Sent in by PCP because of low serum sodium (drop from 125 to 119 in 4 days) 48 year old morbidly obese (BMI 43.7 kg/m2) female with history of bipolar disorder (on valproic acid), hypertension and osteoarthritis who presents to the emergency room after being advised to do so by her Mental Health team for further management of hyponatremia. She was seen in the clinic 5 days ago and had blood work done where she was noted with mild hyponatremia with a serum sodium of 125 mmol/L. Today, she had repeat lab work and her serum sodium was even lower at 119 mmol/L. and mild hyperkalemia at 5.3 mmol/L. She was called at home and advised come to the emergency room for further management. Additional lab work done include urine osmolality that was low at 265 mosm/kg with a normal serum sodium of 32 mmol/L and creatinine of 48.9 mg/dl. On arrival, she was also noted to be mildly hypotensive with BP of 100/62 mmHg. She was started on IV fluids and salt tablets and admission requested. Review of Systems 2 Review of Systems: Yes all other systems are reviewed and are negative [facility] Medical History Lumbar herniated disc Trigger finger Carpal tunnel syndrome Bowel obstruction Abdominal wall ulcer LGSIL on Pap smear of cervix PTSD (post-traumatic stress disorder) Cocaine abuse Baclofen overdose Bipolar 1 disorder, manic, moderate Alcohol abuse Substance abuse Psychiatric diagnosis Hypertension Family History Family/Other Breast cancer Maternal Aunt Cervical cancer Surgical History History of ankle surgery History of carpal tunnel surgery of right wrist Total knee replacement status H/O removal of cyst Gastric bypass status for obesity Hx of tubal ligation History of stress incontinence procedure using tension free vaginal tape History of knee replacement procedure of right knee History of cholecystectomy History of ankle surgery Social History Household Members: None Household Members Other:: lives by self Housing: Apartment Do you presently have visiting nurse or other home services: Yes ([facility]) Unable to assess alcohol history related to: Unknown Alcohol intake: unknown Comment: 1:1 sitter for safety Patient Tobacco Use Status: Current everyday Tobacco user Tobacco use type: Cigarette Cigarette Packs Per Day: 0.5 Cigarettes Per Day: 10.0 Years Smoked: 34 Smoked in Last 30 Days: Yes e-Cigarette/Vaping Use: Currently Using Frequency of e-Cigarette/Vaping Use: daily Second Hand Smoke Exposure: No Use of substances other than those prescribed or required for medical reasons: Yes Substance Use Type: Marijuana Substance Use Frequency: Daily Last Used Substance: Days (ago) Currently Displaying Signs/Symptoms of Drug Intoxication Withdrawal: No Any prior treatment program specific to substance use: No Have you been hit, kicked, punched, or otherwise hurt by someone within the past year? If so, by whom?: No Do you feel safe in your current relationship?: No Current Relationship Is there a partner from a previous relationship who is making you feel unsafe now?: No Are you made to feel afraid or neglected: No Advance Directives: Yes Advance Directives on File: Yes Advance Directives Date on File: 03/18/21 Do you have a plan to hurt others: No Plan Recently lost weight without trying: No How much weight loss: Not applicable Eating poorly because of decreased appetite: No Nutrition screen score: 0 Nutrition Risks: No Nutritional Risk Patient : No : No Poor oral hygiene: No service: No 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al status: unemployed 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 handed/ [employer] Sexual orientation: Bisexual Meds Allergies Allergy/AdvReac Type Severity Reaction Status Date / Time hydromorphone Allergy Intermediate Rash Verified 03/25/24 15:27 acyclovir Allergy Unknown Unknown Verified 03/25/24 15:27 insect venom [INSECT BITES] Allergy Unknown Difficulty Verified 03/25/24 15:27 Breathing sulfamethoxazole Allergy Unknown Anaphylaxis Verified 03/25/24 15:27 [From BACTRIM] trimethoprim [From BACTRIM] Allergy Unknown Anaphylaxis Verified 03/25/24 15:27 Penicillins [PCN] Allergy Rash Verified 03/25/24 15:27 Home Medications ?Medication ?Instructions ?Recorded ?Confirmed ?Last Taken ?Type cyanocobalamin (vitamin B-12) 500 500 mcg DAILY 07/30/23 03/25/24 03/25/24 History mcg tablet docusate sodium 100 mg capsule 100 mg PO BID 07/30/23 03/25/24 03/25/24 History folic acid 1 mg tablet 1 mg PO DAILY 07/30/23 03/25/24 03/25/24 History paliperidone palmitate 234 mg/1.5 234 mg IM QMONTH 07/30/23 03/25/24 03/12/24 History mL intramuscular syringe (Invega Sustenna) hydrochlorothiazide 25 mg tablet 25 mg PO DAILY 01/22/24 03/25/24 03/25/24 History lisinopril 40 mg tablet 40 mg PO DAILY 01/22/24 03/25/24 03/25/24 History minoxidil 2.5 mg tablet 1.25 mg PO DAILY 01/22/24 03/25/24 03/25/24 History bisacodyl 5 mg tablet,delayed 10 mg PO BEDTIME 03/12/24 03/25/24 03/24/24 History release (Dulcolax (bisacodyl)) celecoxib 200 mg capsule (Celebrex) 200 mg PO BEDTIME 03/12/24 03/25/24 03/24/24 History cyclobenzaprine 10 mg tablet 10 mg PO TID 03/12/24 03/25/24 03/25/24 History magnesium citrate 125 mg capsule 250 mg PO DAILY 03/12/24 03/25/24 03/25/24 History metformin 500 mg tablet,extended 1,000 mg PO QPM 03/12/24 03/25/24 03/24/24 History release 24hr (osmotic) naltrexone microspheres 380 mg 380 mg IM QMONTH 03/12/24 03/25/24 Unknown History intramuscular suspension,extended release (Vivitrol) thiamine HCl (vitamin B1) 100 mg 100 mg PO DAILY 03/12/24 03/12/24 03/12/24 06:00 History tablet calcium carbonate (Calcium 600) 1,200 mg PO DAILY 03/25/24 03/25/24 03/25/24 History gabapentin 600 mg tablet 1,200 mg PO BEDTIME 03/25/24 03/25/24 03/24/24 History gabapentin 600 mg tablet 600 mg PO BID@0900,1400 03/25/24 03/25/24 03/25/24 History multivitamin 1 tab PO BID 03/25/24 03/25/24 03/25/24 History omeprazole 20 mg capsule,delayed 20 mg PO DAILY@0630 03/25/24 03/25/24 03/25/24 History release topiramate 50 mg tablet 50 mg PO DAILY@1900 as directed 03/25/24 03/25/24 03/24/24 History Physical Exam 2 Vital Signs and Narrative: Vital Signs: Last Vital Signs Temp 99.0 F 03/25/24 19:22 Pulse 76 03/25/24 19:22 Resp 14 03/25/24 19:22 BP 97/53 L 03/25/24 19:22 Pulse Ox 98 03/25/24 18:30 O2 Del Method Room Air 03/25/24 18:30 BMI result Body Mass Index 43.9 General: Obese female in bed. Awake and alert. In no obvious respiratory distress. Psychiatric: Pleasant, well kempt, cooperative with normal thought process, speech, cognition and affect. HEENT: Normocephalic, atraumatic. No pallor or jaundice. Moist oral mucus membranes Neck: Supple. No JVD Lungs: Clear to auscultation bilaterally. No rales, rhonchi or wheezes Heart: RRR. Normal s1/s2. No murmurs, rubs or gallops. No peripheral edema. Abdomen: Obese, soft, non-tender. Normo-active bowel sounds. No visceromegaly. Genitourinary: Deferred Back/Spine/Pelvis: Deferred Skin: Warm, dry, well perfused. Normal turgor. No mottling. Normal capillary refill (< 2 seconds). Neurologic: Awake and alert. Intact speech & cognition. Normal gait & balance. CN II-XII grossly normal. Extremities: Normal muscle bulk, tone and power. No obvious deformities. No peripheral edema. Good peripheral pulses. Results Labs 03/25/24 15:46 03/25/24 15:46 Labs: Laboratory Results - last 24 hr 03/25/24 03/25/24 03/25/24 15:46 16:00 16:22 MCV 72.9 L MCH 25.3 L MCHC 34.8 RDW 13.4 Plt Count 248 MPV 10.7 Immature Gran % (Auto) 0.2 Neut % (Auto) 58.8 Lymph % (Auto) 28.6 [place] % (Auto) 10.5 Eos % (Auto) 1.5 Baso % (Auto) 0.4 Lymph # (Auto) 2.3 [place] # (Auto) 0.9 Eos # (Auto) 0.1 Baso # (Auto) 0.0 Abs Immat Gran (auto) 0.02 Absolute Neuts (auto) 4.8 Absolute Nucleated RBC 0.000 Nucleated RBC % (auto) 0.0 Hold Blue Top SEE NOTE Anion Gap 12 Estim Creat Clear Calc 104.6 Estimated GFR > 60 Random Glucose 71 Calcium 9.3 Magnesium 2.4 Total Bilirubin 0.3 AST 33 H ALT 11 Alkaline Phosphatase 78 Total Protein 8.1 H Albumin 4.3 Valproic Acid 85.9 Influenza Type A (PCR) NEGATIVE Influenza Type B (PCR) NEGATIVE RSV RNA Qual (PCR) NEGATIVE SARS-CoV-2 RNA (RT-PCR) NEGATIVE Assessment and Plan (1) Hyponatremia: Status: Acute (2) Hyperkalemia: Status: Acute (3) Bipolar I disorder, most recent episode (or current) depressed: Status: Acute (4) Hypertension: Qualifiers: Hypertension type: primary hypertension Qualified Code(s): I10 - Essential (primary) hypertension Status: Acute (5) Morbid obesity with BMI of 40.0-44.9, adult: Status: Acute Plan 48 year old morbidly obese (BMI 43.7 kg/m2) female with history of bipolar disorder (on valproic acid), hypertension and osteoarthritis here with: 1. Severe Hyponatremia - noted with severe hyponatremia with serum sodium level of 119 mmol/L - case was discussed with [employer] telephoner who recommended admission to regular floor and monitoring - will hold HCTZ, minoxidil, and start on salt tablets and IV normal saline - closely monitor serum sodium with a maximum target of 12 mmol/L in 24 hours 2. Hypokalemia - mild - monitor 3. Bipolar disorder - resume Depakote, prazosin, seroquel, topamax 4. Hypertension - BP is running low - hold Lisinopril for now 5. Morbid obesity - encourage weight loss Total time managing care of this patient today: 75 minutes. Quality Stroke Does the patient have a stroke diagnosis?: No VTE Prior VTE?: No VTE Risk Level:: Medical - moderate - high VTE Device Contraindication: N/A - Device Ordered VTE Drug Contraindication: N/A - Med Ordered
[2024-03-25] MEDS: Sennosides 8.6 MG TABLET 17.2 MG PO (20:23)
[2024-03-25] MEDS: Enoxaparin Sodium 40 MG/0.4 ML SYRINGE SUBCUT (20:23)
[2024-03-25 22:26] VITALS: BP 107/58; PULSE 84; RESP 20; TEMP 36.3; O2SAT 95; BMI 43.7
[2024-03-25] MEDS: QUEtiapine Fumarate 50 MG TABLET PO (23:16)
[2024-03-25] MEDS: Celecoxib 200 MG CAPSULE PO (23:16)
[2024-03-25] MEDS: Prazosin HCL 5 MG CAPSULE PO (23:16)
[2024-03-25] MEDS: Divalproex Sodium 500 MG TABLET.DR 1000 MG PO (23:16)
[2024-03-25] MEDS: Gabapentin 600 MG TABLET 1200 MG PO (23:16)
[2024-03-25] MEDS: Sodium Chloride Tab 1 GM TABLET 2 GM PO (23:16)
[2024-03-26 03:18] LABS: Anion Gap 12 (12-20); Blood Urea Nitrogen 13 mg/dL (9-16); Calcium 8.8 mg/dL (8.4-10.2); Carbon Dioxide 24 mmol/L (22-29); Chloride 91 mmol/L (96-108); Creatinine Clr Calc Pharmacy 131.4; Estimated Glomerular Filt Rate > 60; Glucose Random 81 mg/dL (60-115); Potassium 4.2 mmol/L (3.3-5.1); Sodium 123 mmol/L (135-145)
[2024-03-26 04:00] VITALS: BP 102/52; PULSE 67; RESP 20; TEMP 36.4; O2SAT 97
[2024-03-26] MEDS: Omeprazole 20 MG CAPSULE.DR PO (05:12)
[2024-03-26] MEDS: Nicotine Polacrilex 2 MG GUM BUCCAL ×7 (05:12→23:07)
[2024-03-26] MEDS: Milk of Magnesia 30 ML ORAL.SUSP PO ×2 (05:15→18:42)
[2024-03-26 07:10] LABS: MANUAL DIFF FLAG NO
[2024-03-26 07:18] LABS: Basophils Percent Auto 0.6 % (0-2); Eosinophils Absolute Auto 0.2 X10*3/uL (0.0-0.4); Hematocrit 31.1 % (37.0-47.0); Hemoglobin 10.5 g/dl (12.0-16.0); Imm Gran Abs Auto 0.01 X10*3/uL (0.00-0.03); Imm Gran Pct Auto 0.2 % (0.0-0.4); Lymphocytes Absolute Auto 2.1 X10*3/uL (1.2-4.9); Lymphocytes Percent Auto 42.7 % (20-40); Mean Corpuscular HGB Conc 33.8 g/dl (31.0-35.0); Mean Corpuscular Hemoglobin 25.1 pg (27.0-33.0); Mean Corpuscular Volume 74.2 fL (80.0-98.0); Mean Platelet Volume 10.6 fL (9.4-12.3); Monocytes Absolute Auto 0.6 X10*3/uL (0.1-1.2); Monocytes Percent Auto 11.6 % (2-11); Neutrophils Percent Auto 40.9 % (45-73); Platelet Count 219 X10*3/uL (160-400); Red Blood Count 4.19 X10*6/uL (4.20-5.50); Red Cell Distribution Width 13.3 % (11.0-16.0)
[2024-03-26 07:30] LABS: Anion Gap 12 (12-20); Blood Urea Nitrogen 12 mg/dL (9-16); Carbon Dioxide 24 mmol/L (22-29); Chloride 91 mmol/L (96-108); Creatinine Clr Calc Pharmacy 129.3; Estimated Glomerular Filt Rate > 60; Glucose Random 86 mg/dL (60-115); Potassium 4.3 mmol/L (3.3-5.1); Sodium 123 mmol/L (135-145)
[2024-03-26 07:49] LABS: Thyroid Stimulating Hormone 1.67 uIU/mL (0.32-4.0)
[2024-03-26 07:56] VITALS: BP 110/67; PULSE 89; RESP 16; TEMP 36.6; O2SAT 98
[2024-03-26] MEDS: Divalproex Sodium 500 MG TABLET.DR 1000 MG PO ×2 (08:11→20:58)
[2024-03-26] MEDS: Folic Acid 1 MG TABLET PO (08:12)
[2024-03-26] MEDS: Cholecalciferol (Vitamin D3) 25 MCG TABLET 100 MCG PO (08:12)
[2024-03-26] MEDS: lisinopriL 40 MG TABLET PO (08:12)
[2024-03-26] MEDS: Calcium Oyster Shell Elemental 500 MG TABLET 1000 MG PO (08:12)
[2024-03-26] MEDS: Gabapentin 600 MG TABLET PO ×2 (08:12→13:56)
[2024-03-26] MEDS: Multivitamin TABLET 1 TAB PO ×2 (08:12→20:59)
[2024-03-26] MEDS: Docusate Sodium 100 MG CAPSULE PO ×2 (08:12→20:59)
[2024-03-26] MEDS: Enoxaparin Sodium 40 MG/0.4 ML SYRINGE SUBCUT ×2 (08:13→20:59)
[2024-03-26] MEDS: Magnesium Oxide 400 MG TABLET 200 MG PO (08:13)
[2024-03-26] MEDS: 0.9 % Sodium Chloride Flush 3 ML SYRINGE IVFLUSH ×2 (08:22→20:59)
[2024-03-26] MEDS: Cyanocobalamin (Vitamin B-12) 500 MCG TABLET PO (08:58)
[2024-03-26] MEDS: Sodium Chloride Tab 1 GM TABLET 2 GM PO ×2 (08:58→20:58)
[2024-03-26] MEDS: ondansetron HCL 4 MG/2 ML VIAL IVPUSH (09:08)
[2024-03-26] MEDS: minoxidiL 2.5 MG TABLET 1.25 MG PO (09:08)
--- NOTE | 2024-03-26 09:24 | MHC.CM.PN ---
CM met with Patient at bedside and addressed IMM with her; original was given to Patient and a copy has been placed on the chart.Patient lives alone in an apartment, requires no DME, is active with [facility] & [employer] for a [employer]PER[employer] 12 hours/week. Home/resume said services is Patient's goal and CM has initiated and will follow for dc planning. PCP is Dr. Maddie Kim and Patient is requesting a LYFT for transport to home. HCP on file lists Michael as the Agent; this is Patient's Ex- and she no longer wishes for him to be her Agent.
[2024-03-26] MEDS: Urea 15 GM POWDER 30 GM PO (10:56)
[2024-03-26 11:16] VITALS: BP 114/57; PULSE 100; RESP 16; TEMP 36; O2SAT 100
--- NOTE | 2024-03-26 13:19 | P.PNIM_ITS ---
Subjective Subjective Date of Service: 03/26/24 Interval History: seen and evaluated this morning feels better Na of 123 no other events Review of Systems Review of Systems: Yes all other systems are reviewed and are negative Physical Exam 2 Vital Signs: Vital Signs: Last Vital Signs Temp 96.8 F 03/26/24 11:16 Pulse 100 03/26/24 11:16 Resp 16 03/26/24 11:16 BP 114/57 L 03/26/24 11:16 Pulse Ox 100 03/26/24 11:16 O2 Del Method Room Air 03/26/24 11:16 BMI result Body Mass Index 43.7 Const: Other: Constitutional : interactive, not in distress Cardiovascular : no JVP, no lower extremity edema Respiratory : bilateral chest movement, not in resp distress Gastrointestinal: soft, lax, Non tender Skin : Warm, Dry Neurological : Alert & oriented , No focal deficit Objective Data Active Medications Acetaminophen (Acetaminophen 325 Mg Tablet) 650 mg PO Q6H PRN PRN Reason: Pain, Mild 1-3,fever,headache Bisacodyl (Bisacodyl 5 Mg Tablet.) 10 mg PO BEDTIME [facility] Calcium Carbonate (Calcium Carbonate 750 Mg Tab.Chew) 750 mg PO Q4H PRN PRN Reason: Heartburn Calcium Carbonate (Calcium Oyster Shell Elemental 500 Mg Tablet) 1,000 mg PO DAILY [facility] Last Admin: 03/26/24 08:12 Dose: 1,000 mg Documented By: JANET Celecoxib (Celecoxib 200 Mg Capsule) 200 mg PO BEDTIME [facility] Last Admin: 03/25/24 23:16 Dose: 200 mg Documented By: MILADY Cyanocobalamin (Cyanocobalamin (Vitamin B-12) 500 Mcg Tablet) 500 mcg PO DAILY [facility] Last Admin: 03/26/24 08:58 Dose: 500 mcg Documented By: JANET Cyclobenzaprine HCl (Cyclobenzaprine Hcl 10 Mg Tablet) 10 mg PO TID PRN PRN Reason: Muscle Spasm Divalproex Sodium (Divalproex Sodium 500 Mg Tablet.) 1,000 mg PO BID [facility] Last Admin: 03/26/24 08:11 Dose: 1,000 mg Documented By: JANET Docusate Sodium (Docusate Sodium 100 Mg Capsule) 100 mg PO BID [facility] Last Admin: 03/26/24 08:12 Dose: 100 mg Documented By: JANET Enoxaparin Sodium (Enoxaparin Sodium 40 Mg/0.4 Ml Syringe) 40 mg SUBCUT Q12H [facility] Last Admin: 03/26/24 08:13 Dose: 40 mg Documented By: JANET Folic Acid (Folic Acid 1 Mg Tablet) 1 mg PO DAILY [facility] Last Admin: 03/26/24 08:12 Dose: 1 mg Documented By: JANET Gabapentin (Gabapentin 600 Mg Tablet) 1,200 mg PO BEDTIME [facility] Last Admin: 03/25/24 23:16 Dose: 1,200 mg Documented By: MILADY Gabapentin (Gabapentin 600 Mg Tablet) 600 mg PO BID@0900,1400 [facility] Last Admin: 03/26/24 08:12 Dose: 600 mg Documented By: JANET Lisinopril (Lisinopril 40 Mg Tablet) 40 mg PO DAILY [facility]; Protocol Last Admin: 03/26/24 08:12 Dose: 40 mg Documented By: JANET Magnesium Hydroxide (Milk Of Magnesia 30 Ml Oral.Susp) 30 ml PO DAILY PRN PRN Reason: Constipation Last Admin: 03/26/24 05:15 Dose: 30 ml Documented By: MILADY Magnesium Oxide (Magnesium Oxide 400 Mg Tablet) 200 mg PO DAILY [facility] Last Admin: 03/26/24 08:13 Dose: 200 mg Documented By: JANET Melatonin (Melatonin 3 Mg Tablet) 6 mg PO BEDTIME PRN PRN Reason: Insomnia Metformin HCl (Metformin Hcl Er 500 Mg Tab.Er.24h) 1,000 mg PO DAILY@1800 [facility] Minoxidil (Minoxidil 2.5 Mg Tablet) 1.25 mg PO DAILY [facility] Last Admin: 03/26/24 09:08 Dose: 1.25 mg Documented By: JANET Multivitamins/Vitamin C (Multivitamin Tablet) 1 tab PO BID [facility] Last Admin: 03/26/24 08:12 Dose: 1 tab Documented By: JANET Nicotine (Nicotine 21 Mg Patch.Td24) 21 mg TRANSDERMA DAILY [facility] Last Admin: 03/26/24 08:26 Dose: Not Given Documented By: JANET Non-Admin Reason: Patient Refused Nicotine Polacrilex (Nicotine Polacrilex 2 Mg Gum) 2 mg BUCCAL Q2H PRN PRN Reason: Nicotine Cravings Last Admin: 03/26/24 13:03 Dose: 2 mg Documented By: JANET Omeprazole (Omeprazole 20 Mg Capsule.) 20 mg PO DAILY@0630 [facility] Last Admin: 03/26/24 05:12 Dose: 20 mg Documented By: MILADY Ondansetron HCl (Ondansetron Hcl 4 Mg/2 Ml Vial) 4 mg IVPUSH Q8H PRN PRN Reason: Nausea and Vomiting Last Admin: 03/26/24 09:08 Dose: 4 mg Documented By: JANET Prazosin HCl (Prazosin Hcl 5 Mg Capsule) 5 mg PO BEDTIME [facility]; Protocol Last Admin: 03/25/24 23:16 Dose: 5 mg Documented By: MILADY Quetiapine Fumarate (Quetiapine Fumarate 50 Mg Tablet) 50 mg PO BEDTIME [facility] Last Admin: 03/25/24 23:16 Dose: 50 mg Documented By: MILADY Senna (Sennosides 8.6 Mg Tablet) 17.2 mg PO BEDTIME [facility] Last Admin: 03/25/24 20:23 Dose: 17.2 mg Documented By: MARY Sodium Chloride (0.9 % Sodium Chloride Flush 3 Ml Syringe) 3 ml IVFLUSH QSHIFT [facility] Last Admin: 03/26/24 08:22 Dose: 3 ml Documented By: JANET Sodium Chloride (Sodium Chloride Tab 1 Gm Tablet) 2 gm PO BID [facility] Last Admin: 03/26/24 08:58 Dose: 2 gm Documented By: JANET Topiramate (Topiramate 25 Mg Tablet) 50 mg PO DAILY@1900 [facility] Vitamin D (Cholecalciferol (Vitamin D3) 25 Mcg Tablet) 100 mcg PO DAILY [facility] Last Admin: 03/26/24 08:12 Dose: 100 mcg Documented By: JANET Labs 03/26/24 06:36 03/26/24 06:36 Labs: Laboratory Results - last 24 hr 03/25/24 03/25/24 03/25/24 15:46 16:00 16:22 MCV 72.9 L MCH 25.3 L MCHC 34.8 RDW 13.4 Plt Count 248 MPV 10.7 Immature Gran % (Auto) 0.2 Neut % (Auto) 58.8 Lymph % (Auto) 28.6 Trinity % (Auto) 10.5 Eos % (Auto) 1.5 Baso % (Auto) 0.4 Lymph # (Auto) 2.3 Trinity # (Auto) 0.9 Eos # (Auto) 0.1 Baso # (Auto) 0.0 Abs Immat Gran (auto) 0.02 Absolute Neuts (auto) 4.8 Absolute Nucleated RBC 0.000 Nucleated RBC % (auto) 0.0 Hold Blue Top SEE NOTE Anion Gap 12 Estim Creat Clear Calc 104.6 Estimated GFR > 60 Random Glucose 71 Calcium 9.3 Magnesium 2.4 Total Bilirubin 0.3 AST 33 H ALT 11 Alkaline Phosphatase 78 Total Protein 8.1 H Albumin 4.3 TSH Valproic Acid 85.9 Influenza Type A (PCR) NEGATIVE Influenza Type B (PCR) NEGATIVE RSV RNA Qual (PCR) NEGATIVE SARS-CoV-2 RNA (RT-PCR) NEGATIVE 03/26/24 03/26/24 02:50 06:36 MCV 74.2 L MCH 25.1 L MCHC 33.8 RDW 13.3 Plt Count 219 MPV 10.6 Immature Gran % (Auto) 0.2 Neut % (Auto) 40.9 L Lymph % (Auto) 42.7 H Trinity % (Auto) 11.6 H Eos % (Auto) 4.0 Baso % (Auto) 0.6 Lymph # (Auto) 2.1 Trinity # (Auto) 0.6 Eos # (Auto) 0.2 Baso # (Auto) 0.0 Abs Immat Gran (auto) 0.01 Absolute Neuts (auto) 2.0 Absolute Nucleated RBC 0.000 Nucleated RBC % (auto) 0.0 Hold Blue Top Anion Gap 12 12 Estim Creat Clear Calc 131.4 129.3 Estimated GFR > 60 > 60 Random Glucose 81 86 Calcium 8.8 9.0 Magnesium Total Bilirubin AST ALT Alkaline Phosphatase Total Protein Albumin TSH 1.67 Valproic Acid Influenza Type A (PCR) Influenza Type B (PCR) RSV RNA Qual (PCR) SARS-CoV-2 RNA (RT-PCR) Assessment and Plan (1) Hyponatremia: Status: Acute (2) Hyperkalemia: Status: Acute Plan 48 year old morbidly obese (BMI 43.7 kg/m2) female with history of bipolar disorder (on valproic acid), hypertension and osteoarthritis here with: 1. Severe acute Hyponatremia Improved to 123 Nephrology following, start Urea and salt tabs hold HCTZ, minoxidil Continue salt tablets and Urea closely monitor serum sodium with a maximum target of 10 mmol/L in 24 hours 2. acute Hyperkalemia resolved 3. Bipolar disorder resume Depakote, prazosin, seroquel, topamax 4. Hypertension BP is running low hold Lisinopril for now 5. Morbid obesity encourage weight loss The patient will need overnight hospital stay pending Sodium level correction Quality Stroke Does the patient have a stroke diagnosis?: No VTE Prior VTE?: No VTE Risk Level:: Medical - moderate - high VTE Device Contraindication: N/A - Device Ordered VTE Drug Contraindication: N/A - Med Ordered
--- NOTE | 2024-03-26 13:34 | PM.CNNEP ---
History of Present Illness Reason for Consult Consult date: 03/26/24 Chief Complaint Chief complaint: Severe Hyponatremia History of Present Illness Narrative: 48 year old morbidly obese (BMI 43.7 kg/m2) female with history of bipolar disorder (on valproic acid), hypertension and osteoarthritis who presented to the emergency room after being advised to do so by her Mental Health team for further management of hyponatremia. She was seen in the clinic 5 days ago and had blood work done where she was noted with mild hyponatremia with a serum sodium of 125 mmol/L. She had repeat lab work and her serum sodium was even lower at 119 mmol/L. She was admitted for further management . Nephrology was consulted to assist in her clinical care during her current hospital stay Review of Systems Review of Systems Yes all other systems are reviewed and are negative PMFSH Past Medical History Medical History Lumbar herniated disc Trigger finger Carpal tunnel syndrome Bowel obstruction Abdominal wall ulcer LGSIL on Pap smear of cervix PTSD (post-traumatic stress disorder) Cocaine abuse Baclofen overdose Bipolar 1 disorder, manic, moderate Alcohol abuse Substance abuse Psychiatric diagnosis Hypertension Family History Family History Family/Other Breast cancer Maternal Aunt Cervical cancer Surgical History Surgical History History of ankle surgery History of carpal tunnel surgery of right wrist Total knee replacement status H/O removal of cyst Gastric bypass status for obesity Hx of tubal ligation History of stress incontinence procedure using tension free vaginal tape History of knee replacement procedure of right knee History of cholecystectomy History of ankle surgery Social History Social History Household Members: None Household Members Other:: lives by self Housing: Apartment Do you presently have visiting nurse or other home services: Yes ([facility]) Unable to assess alcohol history related to: Unknown Alcohol intake: unknown Comment: 1:1 sitter for safety Patient Tobacco Use Status: Current everyday Tobacco user Tobacco use type: Cigarette Cigarette Packs Per Day: 0.5 Cigarettes Per Day: 10.0 Years Smoked: 34 Smoked in Last 30 Days: Yes e-Cigarette/Vaping Use: Currently Using Frequency of e-Cigarette/Vaping Use: daily Second Hand Smoke Exposure: No Use of substances other than those prescribed or required for medical reasons: Yes Substance Use Type: Marijuana Substance Use Frequency: Daily Last Used Substance: Days (ago) Currently Displaying Signs/Symptoms of Drug Intoxication Withdrawal: No Any prior treatment program specific to substance use: No Have you been hit, kicked, punched, or otherwise hurt by someone within the past year? If so, by whom?: No Do you feel safe in your current relationship?: No Current Relationship Is there a partner from a previous relationship who is making you feel unsafe now?: No Are you made to feel afraid or neglected: No Advance Directives: Yes Advance Directives on File: Yes Advance Directives Date on File: 03/18/21 Do you have a plan to hurt others: No Plan Recently lost weight without trying: No How much weight loss: Not applicable Eating poorly because of decreased appetite: No Nutrition screen score: 0 Nutrition Risks: No Nutritional Risk Patient : No : No Poor oral hygiene: No service: No 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al status: unemployed 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 handed/ [employer] Sexual orientation: Bisexual Meds Allergies Allergy/AdvReac Type Severity Reaction Status Date / Time hydromorphone Allergy Intermediate Rash Verified 03/25/24 15:27 acyclovir Allergy Unknown Unknown Verified 03/25/24 15:27 insect venom [INSECT BITES] Allergy Unknown Difficulty Verified 03/25/24 15:27 Breathing sulfamethoxazole Allergy Unknown Anaphylaxis Verified 03/25/24 15:27 [From BACTRIM] trimethoprim [From BACTRIM] Allergy Unknown Anaphylaxis Verified 03/25/24 15:27 Penicillins [PCN] Allergy Rash Verified 03/25/24 15:27 Active Medications: Current Medications Acetaminophen (Acetaminophen 325 Mg Tablet) 650 mg PO Q6H PRN PRN Reason: Pain, Mild 1-3,fever,headache Bisacodyl (Bisacodyl 5 Mg Tablet.Dr) 10 mg PO BEDTIME [facility] Calcium Carbonate (Calcium Carbonate 750 Mg Tab.Chew) 750 mg PO Q4H PRN PRN Reason: Heartburn Calcium Carbonate (Calcium Oyster Shell Elemental 500 Mg Tablet) 1,000 mg PO DAILY [facility] Last Admin: 03/26/24 08:12 Dose: 1,000 mg Celecoxib (Celecoxib 200 Mg Capsule) 200 mg PO BEDTIME [facility] Last Admin: 03/25/24 23:16 Dose: 200 mg Cyanocobalamin (Cyanocobalamin (Vitamin B-12) 500 Mcg Tablet) 500 mcg PO DAILY [facility] Last Admin: 03/26/24 08:58 Dose: 500 mcg Cyclobenzaprine HCl (Cyclobenzaprine Hcl 10 Mg Tablet) 10 mg PO TID PRN PRN Reason: Muscle Spasm Divalproex Sodium (Divalproex Sodium 500 Mg Tablet.Dr) 1,000 mg PO BID [facility] Last Admin: 03/26/24 08:11 Dose: 1,000 mg Docusate Sodium (Docusate Sodium 100 Mg Capsule) 100 mg PO BID [facility] Last Admin: 03/26/24 08:12 Dose: 100 mg Enoxaparin Sodium (Enoxaparin Sodium 40 Mg/0.4 Ml Syringe) 40 mg SUBCUT Q12H [facility] Last Admin: 03/26/24 08:13 Dose: 40 mg Folic Acid (Folic Acid 1 Mg Tablet) 1 mg PO DAILY [facility] Last Admin: 03/26/24 08:12 Dose: 1 mg Gabapentin (Gabapentin 600 Mg Tablet) 1,200 mg PO BEDTIME [facility] Last Admin: 03/25/24 23:16 Dose: 1,200 mg Gabapentin (Gabapentin 600 Mg Tablet) 600 mg PO BID@0900,1400 [facility] Last Admin: 03/26/24 08:12 Dose: 600 mg Lisinopril (Lisinopril 40 Mg Tablet) 40 mg PO DAILY [facility]; Protocol Last Admin: 03/26/24 08:12 Dose: 40 mg Magnesium Hydroxide (Milk Of Magnesia 30 Ml Oral.Susp) 30 ml PO DAILY PRN PRN Reason: Constipation Last Admin: 03/26/24 05:15 Dose: 30 ml Magnesium Oxide (Magnesium Oxide 400 Mg Tablet) 200 mg PO DAILY [facility] Last Admin: 03/26/24 08:13 Dose: 200 mg Melatonin (Melatonin 3 Mg Tablet) 6 mg PO BEDTIME PRN PRN Reason: Insomnia Metformin HCl (Metformin Hcl Er 500 Mg Tab.Er.24h) 1,000 mg PO DAILY@1800 [facility] Minoxidil (Minoxidil 2.5 Mg Tablet) 1.25 mg PO DAILY [facility] Last Admin: 03/26/24 09:08 Dose: 1.25 mg Multivitamins/Vitamin C (Multivitamin Tablet) 1 tab PO BID [facility] Last Admin: 03/26/24 08:12 Dose: 1 tab Nicotine (Nicotine 21 Mg Patch.Td24) 21 mg TRANSDERMA DAILY [facility] Last Admin: 03/26/24 08:26 Dose: Not Given Nicotine Polacrilex (Nicotine Polacrilex 2 Mg Gum) 2 mg BUCCAL Q2H PRN PRN Reason: Nicotine Cravings Last Admin: 03/26/24 13:03 Dose: 2 mg Omeprazole (Omeprazole 20 Mg Capsule.Dr) 20 mg PO DAILY@0630 [facility] Last Admin: 03/26/24 05:12 Dose: 20 mg Ondansetron HCl (Ondansetron Hcl 4 Mg/2 Ml Vial) 4 mg IVPUSH Q8H PRN PRN Reason: Nausea and Vomiting Last Admin: 03/26/24 09:08 Dose: 4 mg Prazosin HCl (Prazosin Hcl 5 Mg Capsule) 5 mg PO BEDTIME [facility]; Protocol Last Admin: 03/25/24 23:16 Dose: 5 mg Quetiapine Fumarate (Quetiapine Fumarate 50 Mg Tablet) 50 mg PO BEDTIME [facility] Last Admin: 03/25/24 23:16 Dose: 50 mg Senna (Sennosides 8.6 Mg Tablet) 17.2 mg PO BEDTIME [facility] Last Admin: 03/25/24 20:23 Dose: 17.2 mg Sodium Chloride (0.9 % Sodium Chloride Flush 3 Ml Syringe) 3 ml IVFLUSH QSHIFT [facility] Last Admin: 03/26/24 08:22 Dose: 3 ml Sodium Chloride (Sodium Chloride Tab 1 Gm Tablet) 2 gm PO BID [facility] Last Admin: 03/26/24 08:58 Dose: 2 gm Topiramate (Topiramate 25 Mg Tablet) 50 mg PO DAILY@1900 [facility] Vitamin D (Cholecalciferol (Vitamin D3) 25 Mcg Tablet) 100 mcg PO DAILY [facility] Last Admin: 03/26/24 08:12 Dose: 100 mcg Home Medications ?Medication ?Instructions ?Recorded ?Confirmed ?Last Taken ?Type cyanocobalamin (vitamin B-12) 500 500 mcg DAILY 07/30/23 03/25/24 03/25/24 History mcg tablet docusate sodium 100 mg capsule 100 mg PO BID 07/30/23 03/25/24 03/25/24 History folic acid 1 mg tablet 1 mg PO DAILY 07/30/23 03/25/24 03/25/24 History paliperidone palmitate 234 mg/1.5 234 mg IM QMONTH 07/30/23 03/25/24 03/12/24 [facility] hydrochlorothiazide 25 mg tablet 25 mg PO DAILY 01/22/24 03/25/24 03/25/24 History lisinopril 40 mg tablet 40 mg PO DAILY 01/22/24 03/25/24 03/25/24 History minoxidil 2.5 mg tablet 1.25 mg PO DAILY 01/22/24 03/25/24 03/25/24 History bisacodyl 5 mg tablet,delayed 10 mg PO BEDTIME 03/12/24 03/25/24 03/24/24 History release (Dulcolax (bisacodyl)) celecoxib 200 mg capsule (Celebrex) 200 mg PO BEDTIME 03/12/24 03/25/24 03/24/24 History cyclobenzaprine 10 mg tablet 10 mg PO TID 03/12/24 03/25/24 03/25/24 History magnesium citrate 125 mg capsule 250 mg PO DAILY 03/12/24 03/25/24 03/25/24 History metformin 500 mg tablet,extended 1,000 mg PO QPM 03/12/24 03/25/24 03/24/24 History release 24hr (osmotic) naltrexone microspheres 380 mg 380 mg IM QMONTH 03/12/24 03/25/24 Unknown History intramuscular suspension,extended release (Vivitrol) thiamine HCl (vitamin B1) 100 mg 100 mg PO DAILY 03/12/24 03/12/24 03/12/24 06:00 History tablet calcium carbonate (Calcium 600) 1,200 mg PO DAILY 03/25/24 03/25/24 03/25/24 History gabapentin 600 mg tablet 1,200 mg PO BEDTIME 03/25/24 03/25/24 03/24/24 History gabapentin 600 mg tablet 600 mg PO BID@0900,1400 03/25/24 03/25/24 03/25/24 History multivitamin 1 tab PO BID 03/25/24 03/25/24 03/25/24 History omeprazole 20 mg capsule,delayed 20 mg PO DAILY@0630 03/25/24 03/25/24 03/25/24 History release topiramate 50 mg tablet 50 mg PO DAILY@1900 as directed 03/25/24 03/25/24 03/24/24 History Physical Exam Vital Signs: Last Vital Signs Temp 96.8 F 03/26/24 11:16 Pulse 100 03/26/24 11:16 Resp 16 03/26/24 11:16 BP 114/57 L 03/26/24 11:16 Pulse Ox 100 03/26/24 11:16 O2 Del Method Room Air 03/26/24 11:16 BMI result Body Mass Index 43.7 Const General: comfortable and no acute distress Orientation/consciousness: patient oriented x3 HEENT Head: Yes normocephalic Mouth: Normal oral and palatal mucosa present Eyes EOM: EOMs intact bilaterally Neck Neck: Yes supple Resp Auscultation: clear to auscultation bilaterally Cardio Jugular venous distension: no JVD Rate: regular rate GI Palpation (GI): Soft to palpation Auscultation: normal bowel sounds General: Yes no CVA tenderness Back/Spine/Pelvis Back: no CVA tenderness Skin General skin exam: no rashes or lesions noted Neuro General: patient oriented x3 and moves all extremities Extrem General: Yes no pedal edema Results Lab Results 03/26/24 06:36 03/26/24 06:36 Lab results: Chemistry 03/25/24 03/26/24 03/26/24 15:46 02:50 06:36 Sodium 119 L* 123 L 123 L Potassium 5.3 H 4.2 D 4.3 Carbon Dioxide 26 24 24 BUN 14 13 12 Creatinine 0.78 0.62 0.63 Calcium 9.3 8.8 9.0 Hematology 03/25/24 03/26/24 15:46 06:36 WBC 8.2 5.0 Hgb 11.2 L 10.5 L Plt Count 248 219 Assessment and Plan (1) Hyponatremia: Status: Acute Plan Hyponatremia likely multifactorial HCTZ on hold; Already started on NaCl tabs Shall give one dose of PO Urea 30 Gram today No indication for hypertonic saline Shall monitor serum Na closely to avoid rapid correction Procedures Date of Service Date of Service: 03/26/24
[2024-03-26] MEDS: Acetaminophen 325 MG TABLET 650 MG PO (15:07)
[2024-03-26 16:00] VITALS: BP 103/63; PULSE 88; RESP 18; TEMP 36.2; O2SAT 99
[2024-03-26] MEDS: Topiramate 25 MG TABLET 50 MG PO (18:36)
[2024-03-26] MEDS: metFORMIN HCl ER 500 MG TAB.ER.24H 1000 MG PO (18:36)
[2024-03-26 20:00] VITALS: BP 171/85; PULSE 88; RESP 18; TEMP 36.4; O2SAT 98
[2024-03-26 20:10] LABS: Anion Gap 9 (12-20); Blood Urea Nitrogen 19 mg/dL (9-16); Calcium 8.7 mg/dL (8.4-10.2); Carbon Dioxide 25 mmol/L (22-29); Chloride 95 mmol/L (96-108); Creatinine Clr Calc Pharmacy 123.4; Estimated Glomerular Filt Rate > 60; Glucose Random 117 mg/dL (60-115); Potassium 4.4 mmol/L (3.3-5.1); Sodium 125 mmol/L (135-145)
[2024-03-26 20:30] VITALS: BP 125/69
[2024-03-26] MEDS: QUEtiapine Fumarate 50 MG TABLET PO (20:58)
[2024-03-26] MEDS: Sennosides 8.6 MG TABLET 17.2 MG PO (20:58)
[2024-03-26] MEDS: Celecoxib 200 MG CAPSULE PO (20:58)
[2024-03-26] MEDS: bisacodyL 5 MG TABLET.DR 10 MG PO (20:58)
[2024-03-26] MEDS: Gabapentin 600 MG TABLET 1200 MG PO (20:58)
[2024-03-26] MEDS: Prazosin HCL 5 MG CAPSULE PO (20:58)
[2024-03-27] VITALS: BP 99/57; PULSE 95; RESP 16; TEMP 36.6; O2SAT 99
[2024-03-27 04:00] VITALS: BP 113/67; PULSE 93; RESP 16; TEMP 36.1; O2SAT 98
[2024-03-27 04:51] LABS: Anion Gap 12 (12-20); Blood Urea Nitrogen 18 mg/dL (9-16); Calcium 8.8 mg/dL (8.4-10.2); Carbon Dioxide 25 mmol/L (22-29); Chloride 96 mmol/L (96-108); Creatinine Clr Calc Pharmacy 127.2; Estimated Glomerular Filt Rate > 60; Glucose Random 73 mg/dL (60-115); Potassium 4.6 mmol/L (3.3-5.1); Sodium 128 mmol/L (135-145)
[2024-03-27] MEDS: Omeprazole 20 MG CAPSULE.DR PO (05:36)
[2024-03-27] MEDS: Nicotine Polacrilex 2 MG GUM BUCCAL ×3 (05:36→12:54)
[2024-03-27 08:00] VITALS: BP 108/68; PULSE 80; RESP 18; TEMP 36.3; O2SAT 99
[2024-03-27 08:07] LABS: Anion Gap 9 (12-20); Blood Urea Nitrogen 12 mg/dL (9-16); Carbon Dioxide 25 mmol/L (22-29); Chloride 97 mmol/L (96-108); Creatinine Clr Calc Pharmacy 129.3; Estimated Glomerular Filt Rate > 60; Glucose Random 79 mg/dL (60-115); Potassium 4.8 mmol/L (3.3-5.1); Sodium 126 mmol/L (135-145)
[2024-03-27] MEDS: Cyanocobalamin (Vitamin B-12) 500 MCG TABLET PO (08:42)
[2024-03-27] MEDS: Divalproex Sodium 500 MG TABLET.DR 1000 MG PO (08:42)
[2024-03-27] MEDS: Magnesium Oxide 400 MG TABLET 200 MG PO (08:43)
[2024-03-27] MEDS: lisinopriL 40 MG TABLET PO (08:43)
[2024-03-27] MEDS: Folic Acid 1 MG TABLET PO (08:43)
[2024-03-27] MEDS: Multivitamin TABLET 1 TAB PO (08:43)
[2024-03-27] MEDS: minoxidiL 2.5 MG TABLET 1.25 MG PO (08:43)
[2024-03-27] MEDS: Calcium Oyster Shell Elemental 500 MG TABLET 1000 MG PO (08:43)
[2024-03-27] MEDS: Cholecalciferol (Vitamin D3) 25 MCG TABLET 100 MCG PO (08:43)
[2024-03-27] MEDS: Sodium Chloride Tab 1 GM TABLET 2 GM PO (08:43)
[2024-03-27] MEDS: Docusate Sodium 100 MG CAPSULE PO (08:43)
[2024-03-27] MEDS: Enoxaparin Sodium 40 MG/0.4 ML SYRINGE SUBCUT (08:44)
[2024-03-27] MEDS: 0.9 % Sodium Chloride Flush 3 ML SYRINGE IVFLUSH (08:44)
[2024-03-27] MEDS: Urea 15 GM POWDER 30 GM PO (08:44)
[2024-03-27] MEDS: Gabapentin 600 MG TABLET PO ×2 (08:49→14:14)
[2024-03-27 11:00] VITALS: BP 114/61; PULSE 97; RESP 16; TEMP 36.6; O2SAT 97
[2024-03-27] MEDS: Lactulose 20 GM/30 ML SOLUTION 30 GM PO (11:02)
[2024-03-27] MEDS: Psyllium seed 3.7 GM PACKET PO (11:02)
--- NOTE | 2024-03-27 13:17 | P.PNNP_ITS ---
Subjective Subjective Date of Service: 03/27/24 Interval history: Events noted. All recent data reviewed. Na better Physical Exam 2 Vital Signs: Vital Signs: Last Vital Signs Temp 97.8 F 03/27/24 11:00 Pulse 97 03/27/24 11:00 Resp 16 03/27/24 11:00 BP 114/61 03/27/24 11:00 Pulse Ox 97 03/27/24 11:00 O2 Del Method Room Air 03/27/24 11:00 BMI result Body Mass Index 43.7 Const: General: no acute distress Orientation/consciousness: patient oriented x3 Eyes: EOM: EOMs intact bilaterally Neck: Neck: Yes supple Resp: Auscultation: diminished lung sounds Cardio: Rate: regular rate GI: Palpation (GI): Soft to palpation Neuro: General: patient oriented x3 and moves all extremities Objective Data Labs 03/26/24 06:36 03/27/24 07:41 Labs: Laboratory Results - last 24 hr 03/26/24 03/27/24 03/27/24 19:49 01:41 07:35 Hold Purple Top SEE NOTE Sodium 125 L 128 L Potassium 4.4 4.6 Chloride 95 L 96 Carbon Dioxide 25 25 Anion Gap 9 L 12 BUN 19 H 18 H Creatinine 0.66 0.64 Estim Creat Clear Calc 123.4 127.2 Estimated GFR > 60 > 60 Random Glucose 117 H 73 Calcium 8.7 8.8 03/27/24 07:41 Hold Purple Top Sodium 126 L Potassium 4.8 Chloride 97 Carbon Dioxide 25 Anion Gap 9 L BUN 12 Creatinine 0.63 Estim Creat Clear Calc 129.3 Estimated GFR > 60 Random Glucose 79 Calcium 9.0 Procedures Date of Service Date of Service: 03/27/24 Assessment & Plan Assessment and plan (1) Hyponatremia: Status: Acute Plan Hyponatremia likely multifactorial HCTZ on hold; C/W NaCl tabs Shall give one dose of PO Urea 30 Gram today No indication for hypertonic saline Shall monitor serum Na closely to avoid rapid correction Progress Note: Quality Stroke Does the patient have a stroke diagnosis?: No
[2024-03-27 13:43] LABS: Anion Gap 15 (12-20); Blood Urea Nitrogen 29 mg/dL (9-16); Calcium 9.7 mg/dL (8.4-10.2); Carbon Dioxide 22 mmol/L (22-29); Chloride 98 mmol/L (96-108); Creatinine Clr Calc Pharmacy 101.8; Estimated Glomerular Filt Rate > 60; Glucose Random 130 mg/dL (60-115); Potassium 4.8 mmol/L (3.3-5.1); Sodium 130 mmol/L (135-145)
[2024-03-27] MEDS: bisacodyL 10 MG SUPP.RECT PR (14:14)
[2024-03-27] MEDS: Acetaminophen 325 MG TABLET 650 MG PO (14:14)
--- NOTE | 2024-03-27 14:48 | PM.DS ---
DS: Providers Provider Date of Service: 03/27/24 Date of admission: 03/25/24 19:51 Date of discharge: 03/27/24 Primary care physician: Maddie Kim MD Consults: 03/26/24 07:50 Consult to Nephrology Routine Consulting Provider: [facility] Reason for consultation: establishment of care, hyponatremia DS: Diagnosis Discharge Diagnosis (1) Hyponatremia: Status: Acute DS: Summary Hospital Course Hospital Course: Admission note HPI 48 year old morbidly obese (BMI 43.7 kg/m2) female with history of bipolar disorder (on valproic acid), hypertension and osteoarthritis who presents to the emergency room after being advised to do so by her Mental Health team for further management of hyponatremia. She was seen in the clinic 5 days ago and had blood work done where she was noted with mild hyponatremia with a serum sodium of 125 mmol/L. Today, she had repeat lab work and her serum sodium was even lower at 119 mmol/L. and mild hyperkalemia at 5.3 mmol/L. She was called at home and advised come to the emergency room for further management. Additional lab work done include urine osmolality that was low at 265 mosm/kg with a normal serum sodium of 32 mmol/L and creatinine of 48.9 mg/dl. On arrival, she was also noted to be mildly hypotensive with BP of 100/62 mmHg. She was started on IV fluids and salt tablets and admission requested. Hospital course The patient was treatd for Severe acute Hyponatremia as she presented with 119. responded well to holding HCT and starting salt tablets and urea improved to 130 over 2 days of hospital stay as she was evaluated by nephrology team who recommended to discontinue HCT upon discharge and follow as outpatient. She reported chronic constipation. prescribed Fiber and Sennosides on discharge Noted to have hyperkalemia on presentation, resolved with fluids. Discharge plan Stop hydrochlorothiazide Quit smoking; Nicotine patches prescribed Take Fiber daily to help with constipation Senna at bedtime for constipation as needed repeat blood test next week and follow with nephrology as needed Time Attestation Discharge Coordination Time (in mins): 38 Quality: Safe Use of Opioids Does Pt have an Active Cancer Diagnosis on the Problem List?: No Quality: Stroke Does the patient have a stroke diagnosis?: No Physical Exam Vital Signs: Vital Signs: Last Vital Signs Temp 97.8 F 03/27/24 11:00 Pulse 97 03/27/24 11:00 Resp 16 03/27/24 11:00 BP 114/61 03/27/24 11:00 Pulse Ox 97 03/27/24 11:00 O2 Del Method Room Air 03/27/24 11:00 BMI result Body Mass Index 43.7 Const: Other: Constitutional : interactive, not in distress Cardiovascular : no JVP, no lower extremity edema Respiratory : bilateral chest movement, not in resp distress Gastrointestinal: soft, lax, Non tender Skin : Warm, Dry Neurological : Alert & oriented , No focal deficit DS: Data Data Completed and Pending Completed studies during hospitalization [Text1]: Procedures Insertion of Endotracheal Airway into Trachea, Via Natural or Artificial Opening Endoscopic (12/28/20) Respiratory Ventilation, 24-96 Consecutive Hours (12/28/20) Labs on day of discharge: Laboratory Results - last 24 hr 03/26/24 03/27/24 03/27/24 19:49 01:41 07:35 Hold Purple Top SEE NOTE Sodium 125 L 128 L Potassium 4.4 4.6 Chloride 95 L 96 Carbon Dioxide 25 25 Anion Gap 9 L 12 BUN 19 H 18 H Creatinine 0.66 0.64 Estim Creat Clear Calc 123.4 127.2 Estimated GFR > 60 > 60 Random Glucose 117 H 73 Calcium 8.7 8.8 03/27/24 03/27/24 07:41 13:08 Hold Purple Top Sodium 126 L 130 L Potassium 4.8 4.8 Chloride 97 98 Carbon Dioxide 25 22 Anion Gap 9 L 15 BUN 12 29 H Creatinine 0.63 0.80 Estim Creat Clear Calc 129.3 101.8 Estimated GFR > 60 > 60 Random Glucose 79 130 H Calcium 9.0 9.7 D Discharge Plan Discharge Anticipated Discharge Date/Time: 03/27/24 14:40 Patient Disposition: Home, Self-Care Discharge Diagnosis: Hyponatremia Referrals: Maddie Kim MD [Primary Care Provider] - 1 Week Discharge Medications: New sennosides [Senna Lax] 8.6 mg Tablet 17.2 mg PO BEDTIME Qty: 90 0RF Hydrocil Instant Packet 1 packet PO DAILY Qty: 90 0RF nicotine 21 mg/24 hr Patch 24 Hour 21 mg transdermal DAILY Qty: 30 0RF Continued divalproex 500 mg Tablet,Delayed Release (Dr/Ec) 1,000 mg PO BID 30 Days Qty: 120 0RF prazosin 5 mg capsule 5 mg PO BEDTIME 30 Days Qty: 30 0RF docusate sodium 100 mg capsule 100 mg PO BID Patient Comments: Patient takes PRN. Rx Instructions: Patient takes PRN. cyanocobalamin (vitamin B-12) 500 mcg tablet 500 mcg DAILY folic acid 1 mg tablet 1 mg PO DAILY Invega Sustenna 234 mg/1.5 mL syringe 234 mg IM QMONTH cyclobenzaprine 10 mg Tablet 10 mg PO TID Rx Instructions: Patient takes PRN. thiamine HCl (vitamin B1) 100 mg Tablet 100 mg PO DAILY metformin 500 mg Tablet Extended Release 24hr 1,000 mg PO QPM Rx Instructions: Take 2 capsules in the evening. magnesium citrate 125 mg Capsule 250 mg PO DAILY Rx Instructions: Two capsules daily. Vivitrol 380 mg Suspension,Extended Rel Recon 380 mg IM QMONTH celecoxib [Celebrex] 200 mg Capsule 200 mg PO BEDTIME bisacodyl [Dulcolax (bisacodyl)] 5 mg Tablet,Delayed Release (Dr/Ec) 10 mg PO BEDTIME quetiapine [Seroquel] 50 mg tablet 50 mg PO BEDTIME Qty: 30 0RF Rx Instructions: 1 tab bedtime and 1 tab as needed for insomnia cholecalciferol (vitamin D3) [Vitamin D3] 50 mcg (2,000 unit) tablet 100 mcg PO DAILY Qty: 60 0RF calcium carbonate [Calcium 600] 600 mg calcium (1,500 mg) Tablet 1,200 mg PO DAILY multivitamin Tablet 1 tab PO BID gabapentin 600 mg Tablet 1,200 mg PO BEDTIME gabapentin 600 mg tablet 600 mg PO BID@0900,1400 omeprazole 20 mg capsule,delayed release(DR/EC) 20 mg PO DAILY@0630 topiramate 50 mg tablet 50 mg PO DAILY@1900 Rx Instructions: qpm, after dinner lisinopril 40 mg tablet 40 mg PO DAILY minoxidil 2.5 mg tablet 1.25 mg PO DAILY Rx Instructions: Take one half a tab daily. Discontinued hydrochlorothiazide 25 mg tablet 25 mg PO DAILY Discharge Orders: Discharge Order (Routine); Ordered 03/27/24 Ordered By: Lise Griffith Diet: Advance to usual diet Activity on Discharge: As tolerated Stand Alone Forms: Patient Portal Discharge page Print Language: Urdu Other Ambulatory Orders: Basic Metabolic Panel (Routine) Timeframe: 5 Days Facility: [facility] - Location: Laboratory Ordered By: Lise Griffith Care Plan Goals: Stop hydrochlorothiazide Quit smoking; Nicotine patches prescribed Take Fiber daily to help with constipation Senna at bedtime for constipation as needed repeat blood test next week and follow with nephrology as needed Health Concerns: Hyponatremia Plan of Treatment: Stop Hydrochlorothiazide Assessment: as above
[2024-03-27 15:09] VITALS: BP 120/63; PULSE 94; RESP 20; TEMP 36.3; O2SAT 93
--- NOTE | 2024-03-27 15:14 | MHC.CM.PN ---
Patient has been medically cleared for dc to home today; Per RN, Patient's Brother will transport to home (Lyft referral canceled). Patient is active with Willie DOOLEYA, who has been notified of today's dc. Last IMM addressed yesterday.
== END 2024-03-27 16:05 | disposition home health service (06) | DRG 641 ==
LOC: HO.ED 17:30 → HO.EDOVER 20:09 → HO.IMC 20:57
PROVIDERS: Admitting Provider Internal Medicine; Emergency Provider Emergency Medicine; PCP General Practice; Visit Provider Student in an Organized Health Care Education/Training Program
DX: E87.1 Hypo-osmolality and hyponatremia (principal); Z68.41 Body mass index [BMI] 40.0-44.9, adult; I10 Essential (primary) hypertension; E87.6 Hypokalemia; F31.9 Bipolar disorder, unspecified; K59.09 Other constipation; E66.01 Morbid (severe) obesity due to excess calories; Z71.3 Dietary counseling and surveillance; Z20.822 Contact with and (suspected) exposure to COVID-19; Z79.84 Long term (current) use of oral hypoglycemic drugs; Z79.899 Other long term (current) drug therapy
CPT/HCPCS: 0241U; 36415; 80048; 80053; 80164; 82570; 83735; 83930; 83935; 84133; 84300; 84443; 84702; 85025; 93005; 99285; J1650; J2405

== ENCOUNTER → 2024-03-25 15:31 | Outpatient (BNV) | payer OTHER, SELFPAY | PROVIDERS: Admitting Provider Internal Medicine; Emergency Provider Emergency Medicine; PCP General Practice; Visit Provider Internal Medicine Cardiovascular Disease | DX: R79.9 Abnormal finding of blood chemistry, unspecified (principal) | CPT/HCPCS: 93010 ==

== ENCOUNTER → 2024-03-25 19:51 | Outpatient (BNV) | payer OTHER, SELFPAY | PROVIDERS: Admitting Provider Internal Medicine; Emergency Provider Emergency Medicine; PCP General Practice; Visit Provider Internal Medicine | DX: E87.1 Hypo-osmolality and hyponatremia (principal) | CPT/HCPCS: 99223; 99232; 99239 ==

== ENCOUNTER → 2024-03-25 19:51 | Outpatient (BNV) | payer OTHER, SELFPAY | PROVIDERS: Admitting Provider Internal Medicine; Emergency Provider Emergency Medicine; PCP General Practice; Visit Provider Internal Medicine Nephrology | DX: E87.1 Hypo-osmolality and hyponatremia (principal) | CPT/HCPCS: 99223; 99232 ==

== ENCOUNTER 2024-04-01 12:15 | Outpatient (REF) | payer OTHER, SELFPAY ==
[2024-04-02 14:48] LABS: Amphetamine Screen Urine Not Detected (Not Detect); Barbiturates, Urine Not Detected (Not Detect); Benzodiazepines Screen Urine Not Detected (Not Detect); Buprenorphine Scr Not Detected (Not Detect); Cannabinoid Screen Urine POSITIVE (Not Detect); Cocaine Screen Urine Not Detected (Not Detect); Fentanyl, urine Not Detected (Not Detect); Methadone Screen, Urine Not Detected (Not Detect); Opiate Screen Urine Not Detected (Not Detect); Oxycodone Screen Urine Not Detected (Not Detect); Phencyclidine Screen Urine Not Detected (Not Detect)
--- OUTSIDE RECORDS SUMMARY | 2024-04-02 15:24 | XMS_ITS | Encounter Summary ---
Author Organization [employer] Address [address] [place] [address] [address] [place] [address] Care Team Providers Care Casting And Curing Operator Name Role Phone Maddie Kim MD Primary Care Provider [phone] Encounter Details Date Type Department Care Team (Late Contact Info) Description 01/27/2022 Telephone [facility] MEDICINE [address] [place] [address] Maddie Kim MD [address] [place] [address] Social History Tobacco Use Types Packs/Day Years [...] Department Care Team (Late Contact Info) Description 04/18/2024 9:00 AM EST Nutrition [facility] DIABETES/NUTRITION [address] [place] [address] Rosie Vick, SHANICE [address] [place] [address] documented as of this encounter Visit Diagnoses Not on filedocumented in this encounter Care Teams Casting And Curing Operator Relationship Specialty Start Date End Date Maddie Kim MD [address] [place] [address] PCP - General Family Medicine 07/12/20 Willie Gage 01/17/22 documented as of this encounter
--- OUTSIDE RECORDS SUMMARY | 2024-04-02 15:24 | XMS_ITS | Encounter Summary ---
Author Organization [employer] Address [address] [facility] [address] [place] [address] Care Team Providers Care Steam Drier Operator Name Role Phone Maddie Kim MD Primary Care Provider [phone] Encounter Details Date Type Department Care Team ([facility] st Contact Info) Description 07/29/2023 Orders Only [facility] MEDICINE [address] [place], [place] [phone] Maddie Kim MD [address] [place], [place] [phone] Social History Tobacco Use Types Packs/Day Years [...] Care Team (Late st Contact Info) Description 04/18/2024 9:00 AM EST Nutrition [facility] DIABETES/NUTRITION [address] [place] [address] [place] [address] documented as of this encounter Visit Diagnoses Not on filedocumented in this encounter Additional Health Concerns Assessment Noted Time PHQ-9 Depression Total Score: 3 06/15/19 24 11:48 AM EDT documented as of this encounter Care Teams Steam Drier Operator Relationship Specialty Start Date End Date Maddie Kim MD [address] [place] [address] PCP - General Family Medicine 07/12/20 Willie Gage 01/17/22 documented as of this encounter
--- OUTSIDE RECORDS SUMMARY | 2024-04-02 15:24 | XMS_ITS | Encounter Summary ---
Author Organization [employer] Address [address] [facility] [address] [place] [address] Care Team Providers Care Flatbed Press Operator Name Role Phone Maddie Kim MD Primary Care Provider [phone] Encounter Details Date Type Department Care Team ([facility] st Contact Info) Description 05/15/2023 Orders Only [facility] MEDICINE [address] [place], [place] [phone] Maddie Kim MD [address] [place], [place] [phone] Social History Tobacco Use Types Packs/Day Years [...] Info) Description 04/18/2024 9:00 AM EST Nutrition [facility] DIABETES/NUTRITION [address] [place] [address] [place] [address] documented as of this encounter Visit Diagnoses Not on filedocumented in this encounter Additional Health Concerns Assessment Noted Time PHQ-9 Depression Total Score: 0 05/30/19 23 3:26 PM EDT documented as of this encounter Care Teams Flatbed Press Operator Relationship Specialty Start Date End Date Maddie Kim MD [address] [place] [address] PCP - General Family Medicine 07/12/20 Willie Gage 01/17/22 documented as of this encounter
--- OUTSIDE RECORDS SUMMARY | 2024-04-02 15:25 | XMS_ITS | Encounter Summary ---
Author Organization [employer] Address [address] [facility] [address]t [place] [address] Care Team Providers Care Auto Body Service Mechanic Name Role Phone Maddie Kim MD Primary Care Provider [phone] Reason for Visit * Reason Onset Date Comments Medication Question 07/05/2022 Encounter Details Date Type Department Care Team ([facility] Contact Info) Description 07/05/2022 Telephone [facility] MEDICINE [address] [place], [place] [phone] Maddie Kim MD [address] [place], [place] [phone] Medication Question Social History Tobacco Use Types [...] Info) Description 04/18/2024 9:00 AM EST Nutrition [facility] DIABETES/NUTRITION [address] [place] [address] [place] [address] documented as of this encounter Visit Diagnoses Diagnosis History of arthroplasty of right knee Arthropathy Unspecified arthropathy, site unspecified documented in this encounter Additional Health Concerns Assessment Noted Time PHQ-9 Depression Total Score: 0 05/30/19 23 3:26 PM EDT documented as of this encounter Care Teams Auto Body Service Mechanic Relationship Specialty Start Date End Date Maddie Kmi MD [address] [place] [address] PCP - General Family Medicine 07/12/20 Willie Gage 01/17/22 documented as of this encounter
--- OUTSIDE RECORDS SUMMARY | 2024-04-02 15:25 | XMS_ITS | Encounter Summary ---
Author Organization [employer] Address [address] [place] [address] [address] [place] [address] Care Team Providers Care Children'S Choir Director Name Role Phone Maddie Kim MD Primary Care Provider [phone] Encounter Details Date Type Department Care Team ([facility] Contact Info) Description 03/30/2022 Abstract [facility] MEDICINE [address] [place], [place] [phone] Maddie Kim MD [address] [place], [place] [phone] Social History Tobacco Use Types Packs/Day Years [...] Info) Description 04/18/2024 9:00 AM EST Nutrition [facility] DIABETES/NUTRITION [address] [place] [address] [place] [address] documented as of this encounter Visit Diagnoses Not on filedocumented in this encounter Care Teams Children'S Choir Director Relationship Specialty Start Date End Date Maddie Kim MD [address] [place] [id number] PCP - General Family Medicine 07/12/20 Willie Gage 01/17/22 documented as of this encounter
--- OUTSIDE RECORDS SUMMARY | 2024-04-02 15:25 | XMS_ITS | Clinical Summary ---
Author Organization Unknown Care Team Providers Care Educational Administrator Name Role Phone MARLON AHUMADA, JEAN-PIERRE Unavailable Unavailable ENRIQUE WEINSTEINW, WINNIE Unavailable Unavailable KATINA RN, ANASTACIA Unavailable Unavailable SMILEY RN, JENNI Unavailable Unavailable JAVIER RN, GABBY Unavailable Unavaila ble Payers Payer Name Policy Type Policy Number Effective Date Expira tion Date [facility] [id number] [place] [id number] MEDICARE - 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 Ordering Clinician Indication Dosage Frequency Signature (SIG) Comments Components baclofen 10 mg tablet 2020-02 00:00: 00 03-07 00:00 :00 No [id number] 10 mg 3 TIMES DAILY 10 mg 3 TIMES DAILY (route: oral) Med Classific ation: Locomotor System buprenorphi ne 4 mg-naloxone 1 mg sublingual film 2020-02 00:00: 00 04-05 00:00 :00 No [id number] Per instruc tions NEEDED Per instructio ns NEEDED (route: sublingual ) Med Classific ation: Chemical Dependenc y, Agents to Treat divalproex 250 mg tablet,kassandra yed release 2020-02 00:00: 00 04-05 23:59 :00 No [id number] 250 mg DAILY 250 mg DAILY (route: oral) Med Classific ation: Central Nervous System Agents divalproex ER 500 mg tablet,exte nded release 24 hr 2020-02 00:00: 00 04-05 00:00 :00 No [id number] 500 mg 2 TIMES DAILY 500 mg 2 TIMES DAILY (route: oral) Med Classific ation: Central Nervous System Agents ferrous sulfate 325 mg (65 mg iron) tablet 2020-02 00:00: 00 04-05 00:00 :00 No [id number] 1 tablet DAILY 1 tablet DAILY (route: oral) Med Classific ation: Electroly te Balance-N utritiona l Products Invega Sustenna 156 mg/mL intramuscul ar syringe 2020-02 00:00: 00 05-11 23:59 :00 No [id number] 156 mg MONTHLY 156 mg MONTHLY (route: intramuscu lar) Med Classific ation: Central Nervous System Agents levothyroxi ne 25 mcg tablet 2020-02 00:00: 00 03-05 23:59 :00 No [id number] 25 mcg DAILY 25 mcg DAILY (route: oral) Med Classific ation: Endocrine lisinopril 5 mg tablet 2020-02 00:00: 00 11-21 23:59 :00 No [id number] 5 mg DAILY 5 mg DAILY (route: oral) Med Classific ation: Cardiovas cular Therapy Agents nicotine (polacrilex ) 4 mg gum 2020-02 00:00: 00 09-12 23:59 :00 No [id number] 4 gum NEEDED 4 gum NEEDED (route: buccal) Med Classific ation: Chemical Dependenc y, Agents to Treat nicotine 21mg/24hr-1 4mg/24hr-7m g/24hr daily transderm patches,seq uentl 2020-02 00:00: 00 09-12 23:59 :00 No [id number] 21 patch NEEDED 21 patch NEEDED (route: transderma l) Med Classific ation: Chemical Dependenc y, Agents to Treat nystatin 500,000 unit tablet 2020-02 00:00: 00 04-05 00:00 :00 No [id number] In unit 4 TIMES DAILY [id number] In unit 4 TIMES DAILY (route: oral) Med Classific ation: Anti-Infe ctive Agents omeprazole 20 mg tablet,kassandra yed release 2020-02 00:00: 00 Yes [id number] 20 mg DAILY 20 mg DAILY (route: oral) Med Classific ation: Gastroint estinal Therapy Agents prazosin 5 mg capsule 2020-02 00:00: 00 02-14 23:59 :00 No [id number] 5 capsule BEDTIME 5 capsule BEDTIME (route: oral) Med Classific ation: Cardiovas cular Therapy Agents trazodone 50 mg tablet 2020-02 00:00: 00 01-17 23:59 :00 No [id number] 50 mg NEEDED 50 mg NEEDED (route: oral) Med Classific ation: Central Nervous System Agents albuterol sulfate HFA 90 mcg/actuati on aerosol inhaler 04-05 00:00: 00 Yes [id number] 2 puff NEEDED 2 puff NEEDED (route: inhalation ) Med Classific ation: Respirato ry Therapy Agents Aspercreme with Aloe 10 % topical 04-05 00:00: 00 09-12 23:59 :00 No [id number] Per instruc tions NEEDED Per instructio ns NEEDED (route: topical) Med Classific ation: Dermatolo gical cyclobenzap rine 5 mg tablet 04-05 00:00: 00 01-17 23:59 :00 No [id number] 5 mg NEEDED 5 mg NEEDED (route: oral) Med Classific ation: Locomotor System Depakote 500 mg tablet,kassandra yed release 04-05 00:00: 00 05-06 23:59 :00 No [id number] 1000 mg 2 TIMES DAILY 1000 mg 2 TIMES DAILY (route: oral) Med Classific ation: Central Nervous System Agents diphenhydra mine 25 mg capsule 04-05 00:00: 00 06-01 23:59 :00 No [id number] 50 mg NEEDED 50 mg NEEDED (route: oral) Med Classific ation: Respirato ry Therapy Agents hydroxyzine HCl 50 mg tablet 2-15 00:00: 00 06-01 23:59 :00 No [id number] 50 mg 3 TIMES DAILY 50 mg 3 TIMES DAILY (route: oral) Med Classific ation: Central Nervous System Agents naltrexone 50 mg tablet 2-15 00:00: 00 06-01 23:59 :00 No [id number] 50 mg DAILY 50 mg DAILY (route: oral) Med Classific ation: Antidotes and other Reversal Agents Narcan 4 mg/actuatio n nasal spray 2-15 00:00: 00 06-01 23:59 :00 No [id number] Per instruc tions NEEDED Per instructio ns NEEDED (route: nasal) Med Classific ation: Antidotes and other Reversal Agents pyridoxine (vitamin B6) 25 mg tablet 2-15 00:00: 00 06-01 23:59 :00 No [id number] 25 mg DAILY 25 mg DAILY (route: oral) Med Classific ation: Electroly te Balance-N utritiona l Products Invega Sustenna 234 mg/1.5 mL intramuscul ar syringe 3-24 00:00: 00 Yes [id number] Per instruc tions MONTHLY Per instructio ns MONTHLY (route: intramuscu lar) Med Classific ation: Central Nervous System Agents Invega Sustenna 234 mg/1.5 mL intramuscul ar syringe 8-14 00:00: 00 11-30 23:59 :00 No [id number] 234 mg MONTHLY 234 mg MONTHLY (route: intramuscu lar) Med Classific ation: Central Nervous System Agents Celebrex 200 mg capsule 2021-02 0-26 00:00: 00 03-20 23:59 :00 No [id number] 200 mg 2 TIMES DAILY 200 mg 2 TIMES DAILY (route: oral) Alternate Route: NONE. Med Classific ation: Analgesic , Anti-infl ammatory or Antipyret ic Celebrex 200 mg capsule 1-30 00:00: 00 01-10 23:59 :00 No [id number] 200 mg DAILY 200 mg DAILY (route: oral) Alternate Route: NONE. Med Classific ation: Analgesic , Anti-infl ammatory or Antipyret ic docusate sodium 100 mg capsule 30 00:00: 00 01-29 23:59 :00 No [id number] 1 capsule 2 TIMES DAILY 1 capsule 2 TIMES DAILY (route: oral) Alternate Route: NONE. Med Classific ation: Gastroint estinal Therapy Agents Eliquis 2.5 mg tablet 30 00:00: 00 09-12 23:59 :00 No [id number] 1 tablet 2 TIMES DAILY 1 tablet 2 TIMES DAILY (route: oral) Med Classific ation: Hematolog ical Agents oxycodone 5 mg tablet 03-20 00:00: 00 04-18 23:59 :00 No [id number] Per instruc tions DIRECTED Per instructio ns DIRECTED (route: oral) Alternate Route: NONE. Med Classific ation: Analgesic , Anti-infl ammatory or Antipyret ic tramadol 50 mg tablet 03-20 00:00: 00 04-18 23:59 :00 No [id number] Per instruc tions DIRECTED Per instructio ns DIRECTED (route: oral) Med Classific ation: Analgesic , Anti-infl ammatory or Antipyret ic gabapentin 300 mg capsule 3-29 00:00: 00 01-10 23:59 :00 No [id number] 1 capsule 3 TIMES DAILY 1 capsule 3 TIMES DAILY (route: oral) Med Classific ation: Central Nervous System Agents cyclobenzap rine 5 mg tablet 7-27 00:00: 00 01-10 23:59 :00 No [id number] 1 tablet 3 TIMES DAILY 1 tablet 3 TIMES DAILY (route: oral) Med Classific ation: Locomotor System baclofen 10 mg tablet 2022-02 1-24 00:00: 00 03-30 23:59 :00 No [id number] 1 tablet DIRECTED 1 tablet DIRECTED (route: oral) Med Classific ation: Locomotor System docusate sodium 100 mg capsule 2022-02 00:00: 00 Yes [id number] 1 capsule NEEDED 1 capsule NEEDED (route: oral) Med Classific ation: Gastroint estinal Therapy Agents acetaminoph en 300 mg-codeine 30 mg tablet 2-09 00:00: 00 05-15 23:59 :00 No [id number] 1 tablet 3 TIMES DAILY 1 tablet 3 TIMES DAILY (route: oral) Med Classific ation: Analgesic , Anti-infl ammatory or Antipyret ic Paxlovid 300 mg (150 mg x 2)-100 mg tablets in a dose pack 09 00:00: 00 04-03 23:59 :00 No [id number] 3 tablet 2 TIMES DAILY 3 tablet 2 TIMES DAILY (route: oral) Med Classific ation: Anti-Infe ctive Agents tizanidine 4 mg tablet 03-30 00:00: 00 01-03 23:59 :00 No [id number] 1 tablet 3 TIMES DAILY 1 tablet 3 TIMES DAILY (route: oral) Med Classific ation: Locomotor System Depakote 500 mg tablet,kassandra yed release 3-23 00:00: 00 03-31 23:59 :00 No [id number] 1000 mg 2 TIMES DAILY 1000 mg 2 TIMES DAILY (route: oral) Med Classific ation: Central Nervous System Agents multivitami n tablet 15 00:00: 00 Yes [id number] 1 tablet DIRECTED 1 tablet DIRECTED (route: oral) Med Classific ation: Electroly te Balance-N utritiona l Products gabapentin 300 mg capsule 07-10 00:00: 00 Yes [id number] 2 capsule 3 TIMES DAILY 2 capsule 3 TIMES DAILY (route: oral) Med Classific ation: Central Nervous System Agents paliperidon e ER 1.5 mg tablet,exte nded release 24 hr 07-10 00:00: 00 11-22 23:59 :00 No [id number] 1 tablet DAILY 1 tablet DAILY (route: oral) Med Classific ation: Central Nervous System Agents aspirin 81 mg tablet,kassandra yed release 6-26 00:00: 00 08-28 23:59 :00 No 1 tablet 2 TIMES DAILY 1 tablet 2 TIMES DAILY (route: oral) Med Classific ation: Hematolog ical Agents tramadol 50 mg tablet 08-14 00:00: 00 08-17 23:59 :00 No 1 tablet DIRECTED 1 tablet DIRECTED (route: oral) Med Classific ation: Analgesic , Anti-infl ammatory or Antipyret ic cyanocobala min (vit B-12) 500 mcg tablet 09-08 00:00: 00 Yes 1 tablet DAILY 1 tablet DAILY (route: oral) Med Classific ation: Electroly te Balance-N utritiona l Products folic acid 1 mg tablet 09-08 00:00: 00 Yes 1 tablet DAILY 1 tablet DAILY (route: oral) Med Classific ation: Electroly te Balance-N utritiona l Products High Potency Multivitami n 400 mcg tablet 09-08 00:00: 00 02-17 23:59 :00 No 2 tablet DAILY 2 tablet DAILY (route: oral) Med Classific ation: Electroly te Balance-N utritiona l Products magnesium citrate 125 mg capsule 09-08 00:00: 00 Yes 2 capsule DAILY 2 capsule DAILY (route: oral) Med Classific ation: Electroly te Balance-N utritiona l Products Vitamin B-1 50 mg tablet 09-08 00:00: 00 03-25 23:59 :00 No 1 tablet DAILY 1 tablet DAILY (route: oral) Med Classific ation: Electroly te Balance-N utritiona l Products minoxidil 2.5 mg tablet 08-26 00:00: 00 12-17 23:59 :00 No .25 tablet DAILY .25 tablet DAILY (route: oral) Med Classific ation: Cardiovas cular Therapy Agents lisinopril 10 mg tablet 2023-02 0-03 00:00: 00 11-27 23:59 :00 No 2 tablet DAILY 2 tablet DAILY (route: oral) Med Classific ation: Cardiovas cular Therapy Agents lisinopril 40 mg tablet 2023-02 0-11 00:00: 00 Yes 40 mg EVERY AM 40 mg EVERY AM (route: oral) Med Classific ation: Cardiovas cular Therapy Agents minoxidil 2.5 mg tablet 2023-02 029 00:00: 00 Yes 0.5 tablet DAILY 0.5 tablet DAILY (route: oral) Med Classific ation: Cardiovas cular Therapy Agents Celebrex 200 mg capsule 2023-02 00:00: 00 Yes 1 capsule EVERY PM 1 capsule EVERY PM (route: oral) Med Classific ation: Analgesic , Anti-infl ammatory or Antipyret ic cyclobenzap rine 10 mg tablet 2023-02 00:00: 00 03-28 23:59 :00 No 1 tablet 3 TIMES DAILY 1 tablet 3 TIMES DAILY (route: oral) Med Classific ation: Locomotor System hydrochloro thiazide 25 mg tablet 2023-02 00:00: 00 03-28 23:59 :00 No 1 tablet EVERY AM 1 tablet EVERY AM (route: oral) Med Classific ation: Cardiovas cular Therapy Agents metformin ER 1,000 mg 24 hr tablet,exte nded release (gastric reten.) 2023-02 00:00: 00 03-18 23:59 :00 No 2 tablet EVERY PM 2 tablet EVERY PM (route: oral) Med Classific ation: Endocrine naltrexone 50 mg tablet 2023-02 00:00: 00 02-14 23:59 :00 No 1 tablet EVERY AM 1 tablet EVERY AM (route: oral) Med Classific ation: Chemical Dependenc y, Agents to Treat prazosin 5 mg capsule 2023-02-20 00:00: 00 Yes 1 capsule BEDTIME 1 capsule BEDTIME (route: oral) Med Classific ation: Cardiovas cular Therapy Agents Laxative (bisacodyl) 5 mg tablet 2023-02 00:00: 00 Yes 2 tablet BEDTIME 2 tablet BEDTIME (route: oral) Med Classific ation: Gastroint estinal Therapy Agents nitrofurant oin monohydrate /macrocryst als 100 mg capsule 1-04 00:00: 00 02-28 23:59 :00 No 1 capsule EVERY 12 HOURS 1 capsule EVERY 12 HOURS (route: oral) Med Classific ation: Genitouri nary Therapy metformin ER 500 mg tablet,exte nded release 24 hr 1-28 00:00: 00 Yes 2 tablet EVERY PM 2 tablet EVERY PM (route: oral) Med Classific ation: Endocrine thiamine HCl (vitamin B1) 100 mg tablet - 00:00: 00 Yes 1 tablet EVERY AM 1 tablet EVERY AM (route: oral) Med Classific ation: Electroly te Balance-N utritiona l Products Seroquel 50 mg tablet - 00:00: 00 Yes 1 tablet BEDTIME 1 tablet BEDTIME (route: oral) Med Classific ation: Central Nervous System Agents cyclobenzap rine 10 mg tablet 2023-02- 00:00: 00 Yes 1 tablet 3 TIMES DAILY 1 tablet 3 TIMES DAILY (route: oral) Med Classific ation: Locomotor System Hydrocil Instant oral packet - 00:00: 00 Yes 1 packet DAILY 1 packet DAILY (route: oral) Med Classific ation: Gastroint estinal Therapy Agents Senna Lax 8.6 mg tablet 03-28 00:00: 00 Yes 2 tablet BEDTIME 2 tablet BEDTIME (route: oral) Med Classific ation: Gastroint estinal Therapy Agents Vivitrol 380 mg intramuscul ar suspension, extended release 03-28 00:00: 00 Yes Per instruc tions MONTHLY Per instructio ns MONTHLY (route: intramuscu lar) Med Classific ation: Chemical Dependenc y, Agents to Treat Depakote 250 mg tablet,kassandra yed release - 00:00: 00 Yes 1 tablet 2 TIMES DAILY 1 tablet 2 TIMES DAILY (route: oral) Med Classific ation: Central Nervous System Agents Depakote 500 mg tablet,kassandra yed release - 00:00: 00 Yes 1 tablet 2 TIMES DAILY 1 tablet 2 TIMES DAILY (route: oral) Med Classific ation: Central Nervous System Agents Vitamin D3 50 mcg (2,000 unit) tablet 2- 00:00: 00 Yes 2 tablet EVERY AM 2 tablet EVERY AM (route: oral) Med Classific ation: Electroly te Balance-N utritiona l Products HYDROCODONE -ACETAMINOP HEN ORAL 10-07 00:00: 10-12 00:00 :00 No 5-325 mg 5-325 mg (route: ) Med Classific ation: ANALGESIC , ANTI-INFL AMMATORY OR ANTIPYRET IC DOCUSATE SODIUM ORAL 09-19 00:00: 00 10-19 00:00 :00 No 100 mg1 CAPSULE TWICE A DAY 100 mg1 CAPSULE TWICE A DAY (route: ) Alternate Route: BY MOUTH . Med Classific ation: GASTROINT ESTINAL THERAPY AGENTS OXYCODONE ORAL 2018-02 0-08 00:00: 00 11-30 00:00 :00 No 5 mg 5 mg (route: ) Med Classific ation: ANALGESIC , ANTI-INFL AMMATORY OR ANTIPYRET IC LEVOTHYROXI NE ORAL 06-28 00:00: 00 08-27 00:00 :00 No 50 mcg 50 mcg (route: ) Med Classific ation: ENDOCRINE LEVOTHYROXI NE ORAL 09-28 00:00: 00 10-12 00:00 :00 No 25 mcg 25 mcg (route: ) Med Classific ation: ENDOCRINE CHLORPROMAZ INE ORAL 604 00:00: 00 08-22 00:00 :00 No 100 mgONE TABLET ONCE DAILY AT BEDTIME 100 mgONE TABLET ONCE DAILY AT BEDTIME (route: ) Alternate Route: (100MG) BY MOUTH . Med Classific ation: CENTRAL NERVOUS SYSTEM AGENTS CHLORPROMAZ INE ORAL 614 00:00: 00 08-10 00:00 :00 No FOR ANXIETY 25 mgONE TABLET EVERY 6 HOURS NEEDED 25 mgONE TABLET EVERY 6 HOURS NEEDED (route: ) Alternate Route: (25MG) BY MOUTH . Med Classific ation: CENTRAL NERVOUS SYSTEM AGENTS CHLORPROMAZ INE ORAL 604 00:00: 08-22 00:00 :00 No 50 mgONE TABLET ONCE DAILY AT BEDTIME 50 mgONE TABLET ONCE DAILY AT BEDTIME (route: ) Alternate Route: (50MG) BY MOUTH . Med Classific ation: CENTRAL NERVOUS SYSTEM AGENTS OLANZAPINE ORAL 2017-02 2-05 00:00: 02-22 00:00 :00 No 15 mg1 TABLET AT BEDTIME 15 mg1 TABLET AT BEDTIME (route: ) Alternate Route: BY MOUTH . Med Classific ation: CENTRAL NERVOUS SYSTEM AGENTS FLUOXETINE ORAL 2018-0 4-14 00:00: 00 14 00:00 :00 No 20 mg1 CAPSULE EVERY DAY 20 mg1 CAPSULE EVERY DAY (route: ) Alternate Route: BY MOUTH . Med Classific ation: CENTRAL NERVOUS SYSTEM AGENTS OMEPRAZOLE ORAL 0 7-22 00:00: 00 09-23 00:00 :00 No 40 mg 40 mg (route: ) Med Classific ation: GASTROINT ESTINAL THERAPY AGENTS OMEPRAZOLE ORAL 0 6-04 00:00: 00 08-22 00:00 :00 No 40 mgONE CAPSULE ONCE DAILY 40 mgONE CAPSULE ONCE DAILY (route: ) Alternate Route: (40MG) BY MOUTH . Med Classific ation: GASTROINT ESTINAL THERAPY AGENTS OMEPRAZOLE ORAL 0 2-08 00:00: 00 04-28 00:00 :00 No 20 mg1 TABLET TWICE A DAY 20 mg1 TABLET TWICE A DAY (route: ) Alternate Route: BY MOUTH . Med Classific ation: GASTROINT ESTINAL THERAPY AGENTS OMEPRAZOLE ORAL 0 1-16 00:00: 00 03-20 00:00 :00 No 20 mg1 C QD 20 mg1 C QD (route: ) Alternate Route: PO . Med Classific ation: GASTROINT ESTINAL THERAPY AGENTS OMEPRAZOLE ORAL 0 1-03 00:00: 00 03-07 00:00 :00 No 20 mg 20 mg (route: ) Med Classific ation: GASTROINT ESTINAL THERAPY AGENTS FERROUS SULFATE ORAL 0 9-20 00:00: 00 12-08 00:00 :00 No 325 mg (65 mg iron)1 TABLET THREE TIMES A DAY 325 mg (65 mg iron)1 TABLET THREE TIMES A DAY (route: ) Alternate Route: BY MOUTH . Med Classific ation: ELECTROLY TE BALANCE-N UTRITIONA L PRODUCTS FERROUS SULFATE ORAL 0 7-31 00:00: 00 10-18 00:00 :00 No 325 mg (65 mg iron)1 TABLET THREE TIMES A DAY 325 mg (65 mg iron)1 TABLET THREE TIMES A DAY (route: ) Alternate Route: BY MOUTH . Med Classific ation: ELECTROLY TE BALANCE-N UTRITIONA L PRODUCTS FERROUS SULFATE ORAL 6-04 00:00: 08-22 00:00 :00 No 325 mg (65 mg iron)ON E TABLET 3 TIMES DAILY 325 mg (65 mg iron)ONE TABLET 3 TIMES DAILY (route: ) Alternate Route: (325MG) BY MOUTH . Med Classific ation: ELECTROLY TE BALANCE-N UTRITIONA L PRODUCTS TRAMADOL ORAL 2018-02 0-07 00:00: 00 11-28 00:00 :00 No 50 mg 50 mg (route: ) Med Classific ation: ANALGESIC , ANTI-INFL AMMATORY OR ANTIPYRET IC QUETIAPINE ORAL 6-04 00:00: 00 08-22 00:00 :00 No 200 mgONE TABLET ONCE DAILY IN THE EVENING WITHOUT MAGEN D 200 mgONE TABLET ONCE DAILY IN THE EVENING WITHOUT MAGEN D (route: ) Alternate Route: (200MG) BY MOUTH OR A LIGHT MEAL UNDER . Med Classific ation: CENTRAL NERVOUS SYSTEM AGENTS QUETIAPINE ORAL 4-24 00:00: 00 09-10 00:00 :00 No 400 mg1 TABLET EVERYDAY AT BEDTIME 400 mg1 TABLET EVERYDAY AT BEDTIME (route: ) Alternate Route: BY MOUTH . Med Classific ation: CENTRAL NERVOUS SYSTEM AGENTS QUETIAPINE ORAL 1-16 00:00: 00 03-20 00:00 :00 No 400 mg1 T EVERY NIGHT AT BEDTIME 400 mg1 T EVERY NIGHT AT BEDTIME (route: ) Alternate Route: PO . Med Classific ation: CENTRAL NERVOUS SYSTEM AGENTS QUETIAPINE ORAL 1-03 00:00: 00 03-07 00:00 :00 No 400 mg 400 mg (route: ) Med Classific ation: CENTRAL NERVOUS SYSTEM AGENTS LOPERAMIDE ORAL 2018-02 0-04 00:00: 00 12-02 00:00 :00 No 2 mg ONCE DAILY NEEDED 2 mg ONCE DAILY NEEDED (route: ) Alternate Route: BY MOUTH . Med Classific ation: GASTROINT ESTINAL THERAPY AGENTS IBUPROFEN ORAL 6-08 00:00: 00 07-30 00:00 :00 No 600 mg 600 mg (route: ) Med Classific ation: ANALGESIC , ANTI-INFL AMMATORY OR ANTIPYRET IC IBUPROFEN ORAL 5-10 00:00: 00 07-28 00:00 :00 No 600 mg 600 mg (route: ) Med Classific ation: ANALGESIC , ANTI-INFL AMMATORY OR ANTIPYRET IC LITHIUM CARBONATE ORAL 0 4-10 00:00: 00 08-27 00:00 :00 No 600 mg1 CAPSULE TWICE A DAY 600 mg1 CAPSULE TWICE A DAY (route: ) Alternate Route: BY MOUTH . Med Classific ation: CENTRAL NERVOUS SYSTEM AGENTS LITHIUM CARBONATE ORAL 1-18 00:00: 00 03-22 00:00 :00 No 600 mgONE C BID 600 mgONE C BID (route: ) Alternate Route: PO . Med Classific ation: CENTRAL NERVOUS SYSTEM AGENTS LITHIUM CARBONATE ORAL 30 00:00: 00 12-18 00:00 :00 No 450 mgONE TABLET THREE TIMES DAILY 450 mgONE TABLET THREE TIMES DAILY (route: ) Alternate Route: (450MG) BY MOUTH . Med Classific ation: CENTRAL NERVOUS SYSTEM AGENTS LITHIUM CARBONATE ORAL 8-10 00:00: 00 10-12 00:00 :00 No 450 mg 450 mg (route: ) Med Classific ation: CENTRAL NERVOUS SYSTEM AGENTS LITHIUM CARBONATE ORAL 7-22 00:00: 00 09-23 00:00 :00 No 450 mg 450 mg (route: ) Med Classific ation: CENTRAL NERVOUS SYSTEM AGENTS DOK ORAL 9-20 00:00: 00 12-08 00:00 :00 No 100 mg1 CAPSULE TWICE A DAY 100 mg1 CAPSULE TWICE A DAY (route: ) Alternate Route: BY MOUTH . Med Classific ation: GASTROINT ESTINAL THERAPY AGENTS DIVALPROEX ORAL 7-31 00:00: 00 10-18 00:00 :00 No 500 mg2 TABLETS AT BEDTIME 500 mg2 TABLETS AT BEDTIME (route: ) Alternate Route: BY MOUTH . Med Classific ation: CENTRAL NERVOUS SYSTEM AGENTS DIVALPROEX ORAL 6-04 00:00: 00 08-22 00:00 :00 No 500 mg2 TABLETS ONCE DAILY AT BEDTIME 500 mg2 TABLETS ONCE DAILY AT BEDTIME (route: ) Alternate Route: (1000MG) BY MOUTH . Med Classific ation: CENTRAL NERVOUS SYSTEM AGENTS DIVALPROEX ORAL 2018-02 0-16 00:00: 00 01-03 00:00 :00 No 250 mg7 TABLETS AT BEDTIME 250 mg7 TABLETS AT BEDTIME (route: ) Alternate Route: BY MOUTH . Med Classific ation: CENTRAL NERVOUS SYSTEM AGENTS DIVALPROEX ORAL 8-10 00:00: 00 10-12 00:00 :00 No 250 mg 250 mg (route: ) Med Classific ation: CENTRAL NERVOUS SYSTEM AGENTS DIVALPROEX ORAL 6-04 00:00: 08-22 00:00 :00 No 250 mgONE TABLET ONCE DAILY AT BEDTIME 250 mgONE TABLET ONCE DAILY AT BEDTIME (route: ) Alternate Route: (250MG) BY MOUTH . Med Classific ation: CENTRAL NERVOUS SYSTEM AGENTS PREDNISONE ORAL 14 00:00: 00 08-08 00:00 :00 No 20 mgTHREE TABLETS TWO TABLETS ONE TABLET DAILY FOR 2 DAYS DAILY F OR 2 DAYS DAILY FOR 2 DAYS 20 mgTHREE TABLETS TWO TABLETS ONE TABLET DAILY FOR 2 DAYS DAILY F OR 2 DAYS DAILY FOR 2 DAYS (route: ) Alternate Route: BY MOUTH . Med Classific ation: ENDOCRINE PREDNISONE ORAL 2018-02 020 00:00: 00 12-14 00:00 :00 No 10 mg 6 TABS EVERYDAY X 2 DAYS THEN 4 TABS X 2 DAYS THEN 2 TABS X 2 D 10 mg 6 TABS EVERYDAY X 2 DAYS THEN 4 TABS X 2 DAYS THEN 2 TABS X 2 D (route: ) Med Classific ation: ENDOCRINE PREDNISONE ORAL 08 00:00: 00 08-04 00:00 :00 No 10 mg 10 mg (route: ) Med Classific ation: ENDOCRINE BANOPHEN ORAL 31 00:00: 00 10-18 00:00 :00 No 50 mgONE CAPSULE AT BEDTIME NEEDED 50 mgONE CAPSULE AT BEDTIME NEEDED (route: ) Alternate Route: BY MOUTH . Med Classific ation: RESPIRATO RY THERAPY AGENTS RISPERIDONE ORAL 2018-02 016 00:00: 00 01-03 00:00 :00 No 3 mg1 TABLET EVERYDAY AT BEDTIME 3 mg1 TABLET EVERYDAY AT BEDTIME (route: ) Alternate Route: BY MOUTH . Med Classific ation: CENTRAL NERVOUS SYSTEM AGENTS RISPERIDONE ORAL 8-10 00:00: 10-12 00:00 :00 No 1 mg 1 mg (route: ) Med Classific ation: CENTRAL NERVOUS SYSTEM AGENTS RISPERIDONE ORAL 0 3-29 00:00: 06-16 00:00 :00 No 1 mg1 TABLET TWICE A DAY 1 mg1 TABLET TWICE A DAY (route: ) Alternate Route: BY MOUTH . Med Classific ation: CENTRAL NERVOUS SYSTEM AGENTS NICOTINE TRANSDERMAL 6-04 00:00: 00 08-20 00:00 :00 No 21 mg/24 hr1 PATCH (21MG) TRANSDERMA LLY ONCE DAILY 21 mg/24 hr1 PATCH (21MG) TRANSDERMA LLY ONCE DAILY (route: ) Med Classific ation: CHEMICAL DEPENDENC Y, AGENTS TO TREAT HYDROXYZINE PAMOATE ORAL 8-13 00:00: 00 10-31 00:00 :00 No 25 mg 25 mg (route: ) Med Classific ation: CENTRAL NERVOUS SYSTEM AGENTS HYDROXYZINE PAMOATE ORAL 5-13 00:00: 00 07-31 00:00 :00 No 25 mg 25 mg (route: ) Med Classific ation: CENTRAL NERVOUS SYSTEM AGENTS HYDROXYZINE PAMOATE ORAL 4-20 00:00: 00 06-18 00:00 :00 No 50 mg1 CAP EVERY 4 (FOUR) HOURS NEEDED 50 mg1 CAP EVERY 4 (FOUR) HOURS NEEDED (route: ) Alternate Route: BY MOUTH . Med Classific ation: CENTRAL NERVOUS SYSTEM AGENTS HYDROXYZINE PAMOATE ORAL 0 1-03 00:00: 00 03-07 00:00 :00 No 50 mg 50 mg (route: ) Med Classific ation: CENTRAL NERVOUS SYSTEM AGENTS HYDROXYZINE HCL ORAL 7-22 00:00: 00 09-23 00:00 :00 No 50 mg 50 mg (route: ) Med Classific ation: CENTRAL NERVOUS SYSTEM AGENTS BACLOFEN ORAL 8-10 00:00: 00 09-30 00:00 :00 No 10 mg 10 mg (route: ) Med Classific ation: LOCOMOTOR SYSTEM BACLOFEN ORAL 6-14 00:00: 00 08-16 00:00 :00 No 10 mgONE TABLET TWO TO THREE TIMES DAILY NEEDED 10 mgONE TABLET TWO TO THREE TIMES DAILY NEEDED (route: ) Alternate Route: (10MG) BY MOUTH . Med Classific ation: LOCOMOTOR SYSTEM BENZTROPINE ORAL 7-22 00:00: 00 09-23 00:00 :00 No 0.5 mg 0.5 mg (route: ) Med Classific ation: CENTRAL NERVOUS SYSTEM AGENTS BENZTROPINE ORAL 5-10 00:00: 00 07-13 00:00 :00 No 0.5 mg 0.5 mg (route: ) Med Classific ation: CENTRAL NERVOUS SYSTEM AGENTS BENZTROPINE ORAL 1-03 00:00: 00 03-07 00:00 :00 No 0.5 mg 0.5 mg (route: ) Med Classific ation: CENTRAL NERVOUS SYSTEM AGENTS BENZTROPINE ORAL 2017-02 2-05 00:00: 00 02-22 00:00 :00 No 0.5 mgONE TABLET 2 (TWO) TIMES A DAY 0.5 mgONE TABLET 2 (TWO) TIMES A DAY (route: ) Alternate Route: BY MOUTH . Med Classific ation: CENTRAL NERVOUS SYSTEM AGENTS CARISOPRODO L ORAL 0 6-08 00:00: 00 08-01 00:00 :00 No 350 mg 350 mg (route: ) Med Classific ation: LOCOMOTOR SYSTEM PRAZOSIN ORAL 7-31 00:00: 00 10-18 00:00 :00 No 1 mgONE CAPSULE AT BEDTIME 1 mgONE CAPSULE AT BEDTIME (route: ) Alternate Route: BY MOUTH . Med Classific ation: CARDIOVAS CULAR THERAPY AGENTS CYCLOBENZAP RINE ORAL 5-10 00:00: 00 07-08 00:00 :00 No 10 mg 10 mg (route: ) Med Classific ation: LOCOMOTOR SYSTEM CYCLOBENZAP RINE ORAL 5-17 00:00: 00 07-11 00:00 :00 No 5 mg EVERY MORNING NEEDED AT BEDTIME 5 mg EVERY MORNING NEEDED AT BEDTIME (route: ) Med Classific ation: LOCOMOTOR SYSTEM LORAZEPAM ORAL 8-12 00:00: 00 10-14 00:00 :00 No 0.5 mg 0.5 mg (route: ) Med Classific ation: CENTRAL NERVOUS SYSTEM AGENTS LORAZEPAM ORAL 2017-02 2-12 00:00: 00 03-01 00:00 :00 No 0.5 mg 0.5 mg (route: ) Med Classific ation: CENTRAL NERVOUS SYSTEM AGENTS TRAZODONE ORAL 0 7-22 00:00: 00 09-23 00:00 :00 No 100 mg 100 mg (route: ) Med Classific ation: CENTRAL NERVOUS SYSTEM AGENTS TRAZODONE ORAL 0 5-10 00:00: 00 07-13 00:00 :00 No 50 mg 50 mg (route: ) Med Classific ation: CENTRAL NERVOUS SYSTEM AGENTS CLONIDINE HCL ORAL 5-15 00:00: 00 07-18 00:00 :00 No 0.1 mg1 TABLET THREE TIMES A DAY 0.1 mg1 TABLET THREE TIMES A DAY (route: ) Alternate Route: BY MOUTH . Med Classific ation: CARDIOVAS CULAR THERAPY AGENTS CLONIDINE HCL ORAL 1-16 00:00: 00 03-20 00:00 :00 No 0.1 mg1 T TID 0.1 mg1 T TID (route: ) Alternate Route: PO . Med Classific ation: CARDIOVAS CULAR THERAPY AGENTS CLONIDINE HCL ORAL 1-03 00:00: 00 03-07 00:00 :00 No 0.1 mg 0.1 mg (route: ) Med Classific ation: CARDIOVAS CULAR THERAPY AGENTS CLINDAMYCIN HCL ORAL 0 4-11 00:00: 00 06-06 00:00 :00 No 300 mg 3 (THREE) TIMES DAILY 300 mg 3 (THREE) TIMES DAILY (route: ) Alternate Route: 2 CAPS BY MOUTH . Med Classific ation: ANTI-INFE CTIVE AGENTS TOPIRAMATE ORAL 0 2-12 00:00: 00 04-17 00:00 :00 No 25 mg1 TABLET TWICE A DAY 25 mg1 TABLET TWICE A DAY (route: ) Alternate Route: BY MOUTH . Med Classific ation: CENTRAL NERVOUS SYSTEM AGENTS TOPIRAMATE ORAL 0 1-16 00:00: 00 03-20 00:00 :00 No 25 mg1 T BID 25 mg1 T BID (route: ) Alternate Route: PO . Med Classific ation: CENTRAL NERVOUS SYSTEM AGENTS TOPIRAMATE ORAL 0 1-03 00:00: 00 03-07 00:00 :00 No 25 mg 25 mg (route: ) Med Classific ation: CENTRAL NERVOUS SYSTEM AGENTS TOPIRAMATE ORAL 0 6-04 00:00: 00 08-22 00:00 :00 No 200 mg1/2 TABLET TWICE A DAY 200 mg1/2 TABLET TWICE A DAY (route: ) Alternate Route: (100MG) BY MOUTH . Med Classific ation: CENTRAL NERVOUS SYSTEM AGENTS TOPIRAMATE ORAL 0 8-10 00:00: 00 10-12 00:00 :00 No 100 mg 100 mg (route: ) Med Classific ation: CENTRAL NERVOUS SYSTEM AGENTS TOPIRAMATE ORAL 0 7-22 00:00: 00 09-23 00:00 :00 No 100 mg 100 mg (route: ) Med Classific ation: CENTRAL NERVOUS SYSTEM AGENTS PANTOPRAZOL E ORAL 0 8-10 00:00: 00 10-12 00:00 :00 No 40 mg 40 mg (route: ) Med Classific ation: GASTROINT ESTINAL THERAPY AGENTS PANTOPRAZOL E ORAL 0 7-31 00:00: 00 10-18 00:00 :00 No 40 mg1 TABLET EVERY DAY 40 mg1 TABLET EVERY DAY (route: ) Alternate Route: BY MOUTH . Med Classific ation: GASTROINT ESTINAL THERAPY AGENTS ANTI-DIARRH EAL (LOPERAMIDE ) ORAL 0 -17 00:00: 00 07-15 00:00 :00 No 2 mg ONCE DAILY NEEDED 2 mg ONCE DAILY NEEDED (route: ) Alternate Route: BY MOUTH . Med Classific ation: GASTROINT ESTINAL THERAPY AGENTS DAILY VALUE ORAL 0 7-31 00:00: 00 10-18 00:00 :00 No 1 TABLET EVERY DAY 1 TABLET EVERY DAY (route: ) Alternate Route: BY MOUTH . Med Classific ation: ELECTROLY TE BALANCE-N UTRITIONA L PRODUCTS Vital Signs Vital Name Observation Time Observation Value Commen ts Temperature 2024-04-01 16:18:00.000 98 [degF] Temperature 2024-03-28 11:37:00.000 97.4 [degF] Temperature 2024-03-24 10:57:00.000 98 [degF] Temperature 2024-03-17 12:27:00.000 98.8 [degF] Temperature 2024-03-10 12:06:00.000 98 [degF] Pulse 2024-03-28 11:37:00.000 90 /min Pulse 2024-03-24 10:57:00.000 88 /min Pulse 2024-03-17 12:25:00.000 80 /min Pulse 2024-03-10 12:06:00.000 75 /min Respirations 2024-03-28 11:37:00.000 16 /min Respirations 2024-03-24 10:57:00.000 16 /min Respirations 2024-03-17 12:27:00.000 16 /min Respirations 2024-03-10 12:06:00.000 16 /min Systolic Blood Pressure 2024-03-28 11:37:00.000 110 mm [Hg] Systolic Blood Pressure 2024-03-24 10:57:00.000 110 mm [Hg] Systolic Blood Pressure 2024-03-17 12:27:00.000 132 mm [Hg] Systolic Blood Pressure 2024-03-14 11:20:00.000 140 mm [Hg] Systolic Blood Pressure 2024-03-10 12:06:00.000 110 mm [Hg] Diastolic Blood Pressure 2024-03-28 11:37:00.000 72 mm [Hg] Diastolic Blood Pressure 2024-03-24 10:57:00.000 70 mm [Hg] Diastolic Blood Pressure 2024-03-17 12:27:00.000 90 mm [Hg] Diastolic Blood Pressure 2024-03-14 11:20:00.000 90 mm [Hg] Diastolic Blood Pressure 2024-03-10 12:06:00.000 70 mm [Hg] Plan of Treatment Planned Activity Planned Date Details Comments Future Scheduled Test SKILLED NU RSE TO PERFORM HOME SAFETY AND FALL ASSESSMENT AND PROVIDE INSTRUCTION TO IMPLEMENT HOME SAFETY AND FALL PREVENTION STRATEGIES. [code = SKILLED NURSE TO PERFORM HOME SAFETY AND FALL ASSESSMENT AND PROVIDE INSTRUCTION TO IMPLEMENT HOME SAFETY AND FALL PREVENTION STRATEGIES.] Future Scheduled Test SKILLED NU RSE FOR OBSERVATION AND ASSESSMENT OF PATIENTS PAIN LEVEL AND EFFECTIVENESS OF PAIN MANAGEMENT REGIMEN. SKILLED NURSE TO INSTRUCT PATIENT/CAREGIVER REGARDING PHARMACOLOGIC AND NON-PHARMACOLOGIC PAIN CONTROL MEASURES. SKILLED NURSE TO REPORT TO PHYSICIAN IF PAIN IS UNCONTROLLED WITH CURRENT PAIN MANAGEMENT REGIMEN. [code = SKILLED NURSE FOR OBSERVATION AND ASSESSMENT OF PATIENTS PAIN LEVEL AND EFFECTIVENESS OF PAIN MANAGEMENT REGIMEN. SKILLED NURSE TO INSTRUCT PATIENT/CAREGIVER REGARDING PHARMACOLOGIC AND NON-PHARMACOLOGIC PAIN CONTROL MEASURES. SKILLED NURSE TO REPORT TO PHYSICIAN IF PAIN IS UNCONTROLLED WITH CURRENT PAIN MANAGEMENT REGIMEN.] Future Scheduled Test SKILLED NU RSE TO O/A OF PATIENTS MENTAL/BEHAVIORAL STATUS, ASSESS VITAL SIGNS WEEKLY AND P.R.N.. ALLOW 2 PRNS FOR MEDICATION MANAGEMENT. [code = SKILLED NURSE TO O/A OF PATIENTS MENTAL/BEHAVIORAL STATUS, ASSESS VITAL SIGNS WEEKLY AND P.R.N.. ALLOW 2 PRNS FOR MEDICATION MANAGEMENT.] Future Scheduled Test SKILLED NU RSE WILL MAINTAIN SITUATIONAL AWARENESS FOR SAFETY AND WILL NOTIFY CLINICAL SPOUTER AND PHYSICIAN/PROVIDER WITH ANY CHANGE IN CONDITION. [code = SKILLED NURSE WILL MAINTAIN SITUATIONAL AWARENESS FOR SAFETY AND WILL NOTIFY CLINICAL SPOUTER AND PHYSICIAN/PROVIDER WITH ANY CHANGE IN CONDITION.] Future Scheduled Test SKILLED NU RSE TO PRE-POUR MEDICATION PER MEDICATION LIST WEEKLY. ASSESS FOR COMPLIANCE AT EACH SN VISIT. [code = SKILLED NURSE TO PRE-POUR MEDICATION PER MEDICATION LIST WEEKLY. ASSESS FOR COMPLIANCE AT EACH SN VISIT. ] Future Scheduled Test SKILLED NU RSE FOR O/A OF GENERAL HEALTH STATUS OF PAIN, CARDIAC, RESPIRATORY, GASTROINTESTINAL, GENITOURINARY, SKIN, NEUROLOGIC, ENDOCRINE SYSTEMS TO IDENTIFY CHANGES ASSOCIATED WITH EXACERBATION FOR EARLY INTERVENTION OF COMPLICATIONS WEEKLY. [code = SKILLED NURSE FOR O/A OF GENERAL HEALTH STATUS OF PAIN, CARDIAC, RESPIRATORY, GASTROINTESTINAL, GENITOURINARY, SKIN, NEUROLOGIC, ENDOCRINE SYSTEMS TO IDENTIFY CHANGES ASSOCIATED WITH EXACERBATION FOR EARLY INTERVENTION OF COMPLICATIONS WEEKLY.] Future Scheduled Test MEDICATION S WILL BE HELD AND STORED IN LOCKBOX [code = MEDICATIONS WILL BE HELD AND STORED IN LOCKBOX] Future Scheduled Test SKILLED NU RSE MAY PICKUP AND TRANSPORT MEDICATIONS [code = SKILLED NURSE MAY PICKUP AND TRANSPORT MEDICATIONS] Future Scheduled Test SKILLED NU RSE FOR ADMINISTRATION AND TEACHING OF PRESCRIBED INJECTION THERAPY FOR INVEGA SUSTENNA. [code = SKILLED NURSE FOR ADMINISTRATION AND TEACHING OF PRESCRIBED INJECTION THERAPY FOR INVEGA SUSTENNA.] Future Scheduled Test SKILLED NU RSE FOR O/A OF ALTERED MOOD [code = SKILLED NURSE FOR O/A OF ALTERED MOOD] Future Scheduled Test PATIENT KO S A RISK OF HOSPITALIZATION AND ED USE. SKILLED NURSE TO ESTABLISH SUPPORT MEASURES TO MINIMIZE RISK OF HOSPITALIZATION AND ED USE, AND INSTRUCT PATIENT/CAREGIVER ON METHODS TO REDUCE AVOIDABLE HOSPITALIZATION AND ED USE. [code = PATIENT HAS A RISK OF HOSPITALIZATION AND ED USE. SKILLED NURSE TO ESTABLISH SUPPORT MEASURES TO MINIMIZE RISK OF HOSPITALIZATION AND ED USE, AND INSTRUCT PATIENT/CAREGIVER ON METHODS TO REDUCE AVOIDABLE HOSPITALIZATION AND ED USE.] Goal 2023-03-08 Patient Goal - G O TO THE GYM, STAY SOBER, KEEP LOWERING NICOTINE LEVEL Goal 2023-05-07 Patient Goal - G O TO THE GYM, STAY SOBER, KEEP LOWERING NICOTINE LEVEL Goal 2023-07-06 Patient Goal - G O TO THE GYM AT LEAST 2X WEEK, STAY SOBER Goal 2023-09-07 Patient Goal - S ARIES SOBER, EAT HEALTHY, GO BACK TO WORK, LOSE WEIGHT Goal 2023-11-05 Patient Goal - S ARIES SOBER, EAT HEALTHY, LOSE WEIGHT-230 LB Goal 2024-01-04 Patient Goal - NOT DRINK Goal 2024-03-03 Patient Goal - TO BE MED ADH ERENT Goal Patient Goal - TO BE MED ADH ERENT Goal 2023-01-10 Patient Goal - G O TO THE GYM, STAY SOBER, KEEP LOWERING NICOTINE LEVEL Goal 2022-11-08 Patient Goal - G O TO THE GYM, LOWER NICOTINE LEVEL ON VAPE, LOSE 20 LB Goal 2022-09-12 Patient Goal - GO TO THE GYM , LOSE 10 LBS Goal 2022-07-11 Patient Goal - GO TO THE GYM , LOSE 10 LBS Goal 2022-05-15 Patient Goal - GO TO THE GYM Goal 2022-03-13 Patient Goal - D O GOOD AT WORK AND STAY OUT OF HOSPITAL Goal Provider Goal - PATIENT/CAREGIVER WILL VERBALIZE/DEMONSTRATE EFFECTIVE HOME SAFETY AND FALL PREVENTION STRATEGIES THROUGHOUT CERTIFICATION PERIOD. Goal Provider Goal - PATIENT/CAREGIVER WILL DEMONSTRATE UNDERSTANDING OF PHARMACOLOGIC AND NONPHARMACOLOGIC PAIN CONTROL MEASURES AND PATIENT WILL HAVE IMPROVEMENT IN PAIN INTERFERING WITH ACTIVITY EVIDENCED BY PAIN CONTROLLED AT LEVEL OF 4 OR LESS BY END OF CERTIFICATION PERIOD. Goal Provider Goal - ALTERED MENTAL/BEHAVIORAL STATUS WILL BE IDENTIFIED PROMPTLY AND INTERVENTION INITIATED QUICKLY TO MINIMIZE ASSOCIATED RISKS THROUGHOUT CERTIFICATION PERIOD. Goal Provider Goal - PATIENT WILL REMAIN SAFE IN THE COMMUNITY AND WILL BE FREE OF DANGER TO SELF AND OTHERS THROUGHOUT THE CERTIFICATION PERIOD. Goal Provider Goal - PATIENT WILL COMPLY WITH MEDICATION WHEN SKILLED NURSE PRE-POURS MEDICATION THROUGHOUT CERTIFICATION PERIOD. Goal Provider Goal - CHANGE IN GENERAL HEALTH STATUS WILL BE IDENTIFIED AND REPORTED TO PHYSICIAN FOR PROMPT INTERVENTION TO MINIMIZE ASSOCIATED RISKS THROUGHOUT CERTIFICATION PERIOD. Goal Provider Goal - MEDICATION WILL BE STORED IN LOCKBOX FOR SAFETY. Goal Provider Goal - SKILLED NURSE PICKED UP AND TRANSPORTED MEDICATIONS FOR SAFETY. Goal Provider Goal - PATIENT WILL RECEIVE INVEGA INJECTION ORDERED. PATIENT/CAREGIVER WILL VERBALIZE/DEMONSTRATE KNOWLEDGE OF INJECTION THERAPY BY THE END OF THE CERTIFICATION PERIOD. Goal Provider Goal - PATIENT WILL BE ABLE TO PERFORM DAILY FUNCTIONS AND HAVE OPTIMAL IMPROVEMENT IN MOOD STABILITY THROUGHOUT CERTIFICATION PERIOD. Goal Provider Goal - PATIENT WILL HAVE SUPPORT MEASURES ESTABLISHED TO PREVENT HOSPITALIZATION AND ED USE AND PATIENT/CAREGIVER WILL VERBALIZE/DEMONSTRATE METHODS TO REDUCE AVOIDABLE HOSPITALIZATION AND ED USE BY END OF EPISODE. Progress Notes Progress Notes <paragraph>[Visit Date: 2024 by GABBY HERRERA RN]:</paragraph><paragraph>PATIENT ALERT AND ORIENTED X3. PATIENT DISTRACTED TODAY AND ON THE PHONE MOST OF VISIT. PATIENT HAS A NEW PRESCRIPTION FROM DR. SHOAIB OGDEN FOR NITROFURANTOIN MAC 100 MG P.O. B.I.D. X5 DAYS FOR A UTI. PT REPORTS THAT SHE CALLED HER SYMPTOMS INTO HER PROVIDER AND PATIENT WENT TO THE LAB TO SEND A URINE SAMPLE AND STATES IT CAME BACK POSITIVE FOR A UTI. PATIENT TO SELF MANAGE ABX STATING THAT IT IS EASIER FOR HER TO REMEMBER THAT WAY WITHOUT ADDING IT TO HER PREFILLED MEDS. PATIENT REPORTS URINARY FREQUENCY. PT AFEBRILE. PATIENT REPORTS COMPLIANCE WITH TAKING PREFILLED MEDS, APPEARS COMPLIANT PILL ORGANIZER EMPTY APPROPRIATELY. PATIENT'S DEPAKOTE DOSE DECREASED TO 750 MG P.O. BID ORDERE. PT VERBALIZED UNDERSTANDING.. PATIENT REPORTS THAT SHE WENT TO HER OUTPATIENT HOSPITALIZATION PROGRAM TODAY. PT DENIES SYMPTOMS OF HYPONATREMIA. PT DENIES SI/HI. CRISIS PLAN IS IN PLACE. MEDICATION LOCK BOX IS SECURE.</paragraph> <paragraph>[Visit Date: 2024 by GABBY HERRERA RN]:</paragraph><paragraph>BELA NOTE 03/28/24 PATIENT WAS ADMITTED TO [facility] FOR HYPONATREMIA ON 03/25/24. PATIENT WAS TREATED AND HYDROCHLOROTHIAZIDE WAS DISCONTINUED. PATIENT'S SODIUM INCREASED TO 130. PATIENT PRESENTS TODAY ALERT AND ORIENTED X3 REPORTS THAT SHE IS FEELING MUCH BETTER STATING SHE WAS HAVING SEVERE CRAMPS IN HER LEGS PRIOR TO HOSPITALIZATION. PATIENT INSTRUCTED TO DRINK NO MORE THAN 8 CUPS OF WATER DAILY AND PATIENT VERBALIZED UNDERSTANDING. PATIENT'S VITAL SIGNS STABLE. PATIENT IS CONTINUING HER OUTPATIENT PARTIAL HOSPITALIZATION PROGRAM ON AND WILL BE GOING 3 DAYS PER WEEK. SKILLED NURSE TO CONTINUE VISITS TWICE A WEEK FOR MEDICATION MANAGEMENT, PHYSICAL AND MENTAL HEALTH ASSESSMENTS, AND TEACHING OF COPING STRATEGIES. PATIENT AGREES WITH PLAN OF CARE. SN SPOKE WITH BONNIE AT PCP OFFICE TO NOTIFY OF PATIENT'S RETURNED FROM HOSPITAL.</paragraph> Encounters Start Date/Time End Date/Time Encounter Type Admission Type Attending [facility] Facility Care Department Encounter ID Discharge Date Discharge Status Discharge Condition Discharge Reason Percent Goals Met 2022-01-17 00:00:00 2024-05-05 00:00:00 Outpatient RECERTIFIC DAYANION GABBY HERRERA [facility] [id number] 34.38
--- OUTSIDE RECORDS SUMMARY | 2024-04-02 15:25 | XMS_ITS | Encounter Summary ---
Author Organization [employer] Address [address] [place] [address] [address] [place] [address] Care Team Providers Care Pricing Clerk Name Role Phone Maddie Kim MD Primary Care Provider Reason for Referral * Consultation (Routine) - Closed Specialty Diagnoses / Procedures Referred By Sindi mejia Referred To Contact Nutrition Diagnoses Class 2 severe obesity with serious comorbidity and body mass index (BMI) of 39.0 to 39.9 in adult, unspecified obesity type (CMS/HCC) Maddie Kim MD [address] [place] [id number] Phone: tel: fax: Referral ID Status Reason Start Date Expiration Date V isits Requested Visits Authorized [id number] Closed Consult and Treat 04/06/2023 04/05/2024 1 1 Encounter Details Date Type Department Care Team (Late st Contact Info) Description 04/06/2023 Orders Only [facility] MEDICINE [address] [place] [address] [phone] Maddie Kim MD [address] [place] [address] Class 2 severe obesity with serious comorbidity [...] Info) Description 04/18/2024 9:00 AM EST Nutrition [facility] DIABETES/NUTRITION [address] [place] [address] [place] [address] Scheduled Referrals Name Type Priority Associated Diagnoses [...] EDT Narrative 05/26/2023 3:06 PM EDT ? [facility] ? [address] ?[place] [address] ? Mammography Report ? Signed ? Patient: Isaias,Atiya ?MR#: [id number] ? : 1975 ?Acct:[id number] ? Age/Sex: 47 / F ?ADM Date: 05/04/23 ? Loc: HO.MAMMO ? Attending Dr: Maddie Kim MD ? Ordering Physician: Maddie Kim ?Results: 1Negative ? Date of Service: 05/04/23 ?Follow Up: 1 Year From Orig ?? inal Mammogram ? Procedure(s): MM tomosynthesis screening BI ?? Accession Number(s): [id number] ? cc: Maddie Kim ? EXAMINATION: ?? [...] 1503 ? DD/ 1602 ? TD/TT: ? Clerk Specialist: ? Procedure Note Donrutter, Image - 05/26/2023 [facility] [address] [place] [address] Mammography Report Signed Patient: Zain Esparza#: [id number] : 1975Acct:[id number] Age/Sex: 47 / FADM Date: 05/04/23 Loc: MICHAEL Attending Dr: Maddie Kim MD Ordering Physician: Jaja Kimults: 1Negative Date of Service: 05/04/23Follow Up: 1 Year From Orig inal Mammogram Procedure(s): MM tomosynthesis screening BI Accession Number(s): [id number] cc: Maddie Kim EXAMINATION: MM SCREENING DIGITAL [...] for their next mammogram. Dictated By: Teresita Bye MD Signed By: <Electronically signed by Teresita Bey MD in OV> 05/26/23 1503 DD/ 1602 TD/TT: Clerk Specialist: Maddie Kmi MD IMG BI PROCEDURES Final Result documented in this encounter Visit Diagnoses Diagnosis Class 2 severe obesity with serious comorbidity and body mass index (BMI) of 39.0 to 39.9 in adult, unspecified obesity type (CMS/HCC)- Primary documented in this encounter Additional Health Concerns Assessment Noted Time PHQ-9 Depression Total Score: 0 05/30/19 23 3:26 PM EDT documented as of this encounter Care Teams Pricing Clerk Relationship Specialty Start Date End Date Maddie Kim MD [address] [place] [phone] PCP - General Family Medicine 07/12/20 Willie Gage 01/17/22 documented as of this encounter
--- OUTSIDE RECORDS SUMMARY | 2024-04-02 15:25 | XMS_ITS | Encounter Summary ---
Author Organization [employer] Address [address] [place] [address] [address] [place] [address] Care Team Providers Care Sas Etl Developer Name Role Phone Maddie Kim MD Primary Care Provider [phone] Encounter Details Date Type Department Care Team (Late Contact Info) Description 11/14/2022 Orders Only [facility] MEDICINE [address] [place], [place] [phone] Maddie Kim MD [address] [place], [place] [phone] Social History Tobacco Use Types Packs/Day Years [...] Info) Description 04/18/2024 9:00 AM EST Nutrition [facility] DIABETES/NUTRITION [address] [place], [place] [phone] [address] [place], [place] [phone] documented as of this encounter Visit Diagnoses Not on filedocumented in this encounter Additional Health Concerns Assessment Noted Time PHQ-9 Depression Total Score: 0 05/30/19 23 3:26 PM EDT documented as of this encounter Care Teams Sas Etl Developer Relationship Specialty Start Date End Date Maddie Kim MD [address] [place] [address] PCP - General Family Medicine 07/12/20 Willie Gage 01/17/22 documented as of this encounter
--- OUTSIDE RECORDS SUMMARY | 2024-04-02 15:25 | XMS_ITS | Encounter Summary ---
Author Organization [employer] Address [address] [place] [address] [address] [place] [address] Care Team Providers Care Sheriffs Detective Name Role Phone Maddie Kim MD Primary Care Provider [phone] Reason for Visit * Reason Onset Date Comments FYI 03/28/2024 Encounter Details Date Type Department Care Team ([facility] Contact Info) Description 03/28/2024 Telephone [facility] MEDICINE [address] [place], [place] [phone] Maddie Kim MD [address] [place], [place] [phone] Social History Tobacco Use Types Packs/Day Years [...] Telephone Encounter - Sheila Rene RN - 03/28/2024 3:49 PM EST Noted. Awaiting provider response in regards to HDF scheduling. * Telephone Encounter - Jose A Orellana - 03/28/2024 3:46 PM EST Tc from Lauren with Augustin Gage stating that Pt was seen at [facility] and she also said that they took pt off Med hydroCHLOROthiazide (HYDRODiuril) 25 MG tablet If any questions contact Lauren at [phone] documented in this encounter Plan of Treatment Upcoming Encounters Date Type Department Care Team (Late st Contact Info) Description 04/18/2024 9:00 AM EST Nutrition [facility] DIABETES/NUTRITION [address] [place] [address] [place] [address] documented as of this encounter Visit Diagnoses Not on filedocumented in this encounter Additional Health Concerns Assessment Noted Time PHQ-9 Depression Total Score: 3 06/15/19 24 11:48 AM EDT documented as of this encounter Care Teams Sheriffs Detective Relationship Specialty Start Date End Date Maddie Kim MD [address] [place] [address] PCP - General Family Medicine 07/12/20 Willie Gage 01/17/22 documented as of this encounter
--- OUTSIDE RECORDS SUMMARY | 2024-04-02 15:25 | XMS_ITS | Encounter Summary ---
Author Organization [email or web address] Address [address] [place] [address] [address] [place] [address] Care Team Providers Care Electronic Commerce Specialist Name Role Phone Maddie Kim MD Primary Care Provider [phone] Reason for Visit * Reason Onset Date Comments c/b request 11/10/2022 Encounter Details Date Type Department Care Team ([facility] st Contact Info) Description 11/10/2022 Telephone [facility] MEDICINE [address] [place] [address] [phone] Maddie Kim MD [address] [place], [place] [phone] c/b request Social History Tobacco Use Types [...] to medication reconciliation. Please contact [employer] at [phone] documented in this encounter Plan of Treatment Upcoming Encounters Date Type Department Care Team (Late st Contact Info) Description 04/18/2024 9:00 AM EST Nutrition [facility] DIABETES/NUTRITION [address] [place], [place] [phone] [address] [place] [address] documented as of this encounter Visit Diagnoses Diagnosis Gastroesophageal reflux disease without esophagitis Esophageal reflux documented in this encounter Additional Health Concerns Assessment Noted Time PHQ-9 Depression Total Score: 0 05/30/19 23 3:26 PM EDT documented as of this encounter Care Teams Electronic Commerce Specialist Relationship Specialty Start Date End Date Maddie Kim MD [address] [place] [address] PCP - General Family Medicine 07/12/20 Willie Gage 01/17/22 documented as of this encounter
--- OUTSIDE RECORDS SUMMARY | 2024-04-02 15:25 | XMS_ITS | Encounter Summary ---
Author Organization [employer] Address [address] [place] [address] [address] [place] [address] Care Team Providers Care Customer Sales Advisor Name Role Phone Maddie Kim MD Primary Care Provider [phone] Reason for Visit * Reason Onset Date Comments No Show 04/02/2024 Encounter Details Date Type Department Care Team ([facility] Contact Info) Description 04/02/2024 Telephone [facility] MEDICINE [address] [place], [place] [phone] Maddie Kim MD [address] [place], [place] [phone] No Show Social History Tobacco Use Types Packs/Day Years [...] encounter Miscellaneous Notes * Telephone Encounter - Kait Barrera - 04/02/2024 1:57 PM EST Pt no showed to appt on 04/02/24 documented in this encounter Plan of Treatment Upcoming Encounters Date Type Department Care Team (Late st Contact Info) Description 04/18/2024 9:00 AM EST Nutrition [facility] DIABETES/NUTRITION [address] [place] [address] [place] [address] documented as of this encounter Visit Diagnoses Not on filedocumented in this encounter Additional Health Concerns Assessment Noted Time PHQ-9 Depression Total Score: 3 06/15/19 24 11:48 AM EDT documented as of this encounter Care Teams Customer Sales Advisor Relationship Specialty Start Date End Date Maddie Kim MD [address] [place] [address] PCP - General Family Medicine 07/12/20 Willie Gage 01/17/22 documented as of this encounter
--- OUTSIDE RECORDS SUMMARY | 2024-04-02 15:25 | XMS_ITS | Encounter Summary ---
Author Organization [employer] Address [address] [facility] 7t [place] [address] Care Team Providers Care Community Relations Officer Name Role Phone Maddie Kim MD Primary Care Provider Reason for Visit * Reason Onset Date Comments Call Back Request 03/31/2024 Encounter Details Date Type Department Care Team ([facility] Contact Info) Description 03/31/2024 Telephone [facility]ICINE [address] [place], [place] [phone] Maddie Kim MD [address] [place], [place] [phone] Call Back Request Social History Tobacco Use [...] Telephone Encounter - Sheila Rene RN - 03/31/2024 1:23 PM EST TC placed to patient [phone] in regards to below message. RN did attempt calling patient today(see [place] encounter). Patient accepted HDF appointment for 04/02/24 at 11am for HDF. Patient to f/u PRN. * Telephone Encounter - Elier Mckinley - 03/31/2024 12:58 PM EST Tc from pt stating that a nurse Lesvia called her to transfer call to red team , telegraphic typewriter mechanic verify and there was no notes communications supervisor she states that was placed. Pt then tells telegraphic typewriter mechanic to tell nurse from red team to call her urgently. [phone] documented in this encounter Plan of Treatment Upcoming Encounters Date Type Department Care Team (Late st Contact Info) Description 04/18/2024 9:00 AM EST Nutrition [facility] DIABETES/NUTRITION [address] [place] [address] [place] [address] documented as of this encounter Visit Diagnoses Not on filedocumented in this encounter Additional Health Concerns Assessment Noted Time PHQ-9 Depression Total Score: 3 06/15/19 24 11:48 AM EDT documented as of this encounter Care Teams Community Relations Officer Relationship Specialty Start Date End Date Maddie Kim MD [address] [place] [address] PCP - General Family Medicine 07/12/20 Willie Caring 01/17/22 documented as of this encounter
--- OUTSIDE RECORDS SUMMARY | 2024-04-02 15:25 | XMS_ITS | Encounter Summary ---
Author Organization [employer] Address [address] [facility] 7t [place] [address] Care Team Providers Care Care Director Rn Name Role Phone Maddie Kim MD Primary Care Provider [phone] Encounter Details Date Type Department Care Team ([facility] st Contact Info) Description 01/02/2024 Orders Only [facility] MEDICINE [address] [place], [place] [phone] Maddie Kim MD [address] [place], [place] [phone] Social History Tobacco Use Types Packs/Day Years [...] Info) Description 04/18/2024 9:00 AM EST Nutrition [facility] DIABETES/NUTRITION 230 [place] [address] [place] [address] documented as of this encounter Visit Diagnoses Not on filedocumented in this encounter Additional Health Concerns Assessment Noted Time PHQ-9 Depression Total Score: 3 06/15/19 24 11:48 AM EDT documented as of this encounter Care Teams Care Director Rn Relationship Specialty Start Date End Date Maddie Kim MD [address] [place] [address] PCP - General Family Medicine 07/12/20 Willie Gage 01/17/22 documented as of this encounter
--- OUTSIDE RECORDS SUMMARY | 2024-04-02 15:25 | XMS_ITS | Encounter Summary ---
Author Organization [employer] Address [address] [facility] 7t [place] [address] Care Team Providers Care Mold Shop Supervisor Name Role Phone Maddie Kim MD Primary Care Provider [phone] Reason for Visit * Reason Onset Date Comments Nutrition Medication Question 05/30/2023 Encounter Details Date Type Department Care Team ([facility] Contact Info) Description 05/30/2023 Telephone [facility] MEDICINE 230 [place], [place] [phone] Maddie Kim MD 230 [place], [place] [phone] Nutrition Medication Question Social History Tobacco Use [...] Info) Description 04/18/2024 9:00 AM EST Nutrition [facility] DIABETES/NUTRITION [address] [place] [address] [place] [address] documented as of this encounter Visit Diagnoses Not on filedocumented in this encounter Additional Health Concerns Assessment Noted Time PHQ-9 Depression Total Score: 0 05/30/19 23 3:26 PM EDT documented as of this encounter Care Teams Mold Shop Supervisor Relationship Specialty Start Date End Date Maddie Kim MD 230 [place] [address] PCP - General Family Medicine 07/12/20 Willie Gage 01/17/22 documented as of this encounter
--- OUTSIDE RECORDS SUMMARY | 2024-04-02 15:25 | XMS_ITS | Encounter Summary ---
Author Organization [employer] Address [address] [place] [address] 7t [place] [address] Care Team Providers Care Pickling Machine Operator Name Role Phone Maddie Kim MD Primary Care Provider [phone] Reason for Visit * Reason Onset Date Comments FYI 02/15/2024 Encounter Details Date Type Department Care Team ([facility] Contact Info) Description 02/15/2024 Telephone [facility] MEDICINE 230 [place], [place] [phone] Maddie Kim MD 230 [place], [place] [phone] FY Social History Tobacco Use Types Packs/Day [...] any questions you can contact Lauren at [phone]. documented in this encounter Plan of Treatment Upcoming Encounters Date Type Department Care Team (Late st Contact Info) Description 04/18/2024 9:00 AM EST Nutrition [facility] DIABETES/NUTRITION [address] [place] [address] [place] [address] documented as of this encounter Visit Diagnoses Not on filedocumented in this encounter Additional Health Concerns Assessment Noted Time PHQ-9 Depression Total Score: 3 06/15/19 24 11:48 AM EDT documented as of this encounter Care Teams Pickling Machine Operator Relationship Specialty Start Date End Date Maddie Kim MD [address] [place] [address] PCP - General Family Medicine 07/12/20 Willie Gage 11/29/22 documented as of this encounter
--- OUTSIDE RECORDS SUMMARY | 2024-04-02 15:25 | XMS_ITS | Encounter Summary ---
Author Organization [employer] Address [address] [facility] 7t [place] [address] Care Team Providers Care Associate Embalmer/Funeral Director Name Role Phone Maddie Kim MD Primary Care Provider [phone] Encounter Details Date Type Department Care Team ([facility] st Contact Info) Description 06/13/2023 Orders Only [facility] MEDICINE 230 [place], [place] [phone] Maddie Kim MD [address] [place], [place] [phone] Social History Tobacco Use Types Packs/Day Years [...] Info) Description 04/18/2024 9:00 AM EST Nutrition [facility] DIABETES/NUTRITION 230 [place] [address] 230 [place] [address] documented as of this encounter Visit Diagnoses Not on filedocumented in this encounter Additional Health Concerns Assessment Noted Time PHQ-9 Depression Total Score: 0 05/30/19 23 3:26 PM EDT documented as of this encounter Care Teams Associate Embalmer/Funeral Director Relationship Specialty Start Date End Date Maddie Kim MD 230 [place] [address] PCP - General Family Medicine 07/12/20 Willie Gage 01/17/22 documented as of this encounter
--- OUTSIDE RECORDS SUMMARY | 2024-04-02 15:25 | XMS_ITS | Encounter Summary ---
Author Organization [employer] Address [address] [facility] 7t [place] [address] Care Team Providers Care Body Liner Name Role Phone Maddie Kim MD Primary Care Provider [phone] Reason for Visit * Reason Comments Med Refill Encounter Details Date Type Department Care Team ([facility] st Contact Info) Description 04/12/2023 Refill [facility] [address] [place] [phone] Isac Gonzalez MD [address] [place], [place] [phone] Chronic bilateral low back pain without sciatica [...] AM EST Nutrition [facility] DIABETES/NUTRITION [address] [place] [address] [place] [address] documented as of this encounter Visit Diagnoses Diagnosis Chronic bilateral low back pain without sciatica documented in this encounter Additional Health Concerns Assessment Noted Time PHQ-9 Depression Total Score: 0 05/30/19 23 3:26 PM EDT documented as of this encounter Care Teams Body Liner Relationship Specialty Start Date End Date Maddie Kim MD [address] [place] [address] PCP - General Family Medicine 07/12/20 Willie Gage 01/17/22 documented as of this encounter
--- OUTSIDE RECORDS SUMMARY | 2024-04-02 15:25 | XMS_ITS | Encounter Summary ---
Author Organization [employer] Address [address] [facility] 7t [place] [address] Care Team Providers Care Environmental Consultant Name Role Phone Maddie Kim MD Primary Care Provider [phone] Reason for Visit * Reason Onset Date Comments Call Back Request 07/26/2023 Encounter Details Date Type Department Care Team ([facility] Contact Info) Description 07/26/2023 Telephone [facility] MEDICINE [address] [place] [address] Maddie Kim MD 230 [place], [place] [phone] Call Back Request Social History Tobacco Use [...] 07/27/2023 9:31 AM EDT Tc returned to [place], questioning pt.'s risperidone inj rx on med list they received. Looking back in chart, this was discontinued after inpatient hosp in 2020 due to noncompliance with injections. This was the last time [facility] was prescribed[facility], thank you! * Telephone Encounter - Zach Carlson - 07/26/2023 4:12 PM EDT Tc from [place] with Willie Gage requesting a call back for a med reconciliation. Please contact Georgie at [phone]. documented in this encounter Plan of Treatment Upcoming Encounters Date Type Department Care Team (Late st Contact Info) Description 04/18/2024 9:00 AM EST Nutrition [facility] DIABETES/NUTRITION 230 [place], [place] [phone] Rosie Vick, RD 230 [place], [place] [phone] documented as of this encounter Visit Diagnoses Not on filedocumented in this encounter Additional Health Concerns Assessment Noted Time PHQ-9 Depression Total Score: 3 06/15/19 24 11:48 AM EDT documented as of this encounter Care Teams Environmental Consultant Relationship Specialty Start Date End Date Maddie Kim MD [address] [place] [address] PCP - General Family Medicine 07/12/20 Willie Gage 01/17/22 documented as of this encounter
--- OUTSIDE RECORDS SUMMARY | 2024-04-02 15:25 | XMS_ITS | Continuity of Care Document ---
Author Organization [employer] Address [address] [place] [id number] Care Team Providers Care Tool Crib Manager Name Role Phone HIM [facility] OTHER [facility] OTHER Assessment No assessment recorded. Plan of Treatment Reminders Order Date Submit Date Provider Last Modified By Organization Details Last Modified Time Details Appointments None record ed. Lab None record ed. Referral None record ed. Procedures None record ed. Surgeries None record ed. Imaging None record ed. Medication Orders None record ed. Patient TargetsNo targets recorded. Patient InstructionsNo instructions recorded. Reason for Referral None Reported. Medical Equipment None Reported. Allergies Allergen ID Allergen Name Allergen Category Reaction Reaction Severity Criticality Documentation Date Start Date Code Code System Note Provider Name and Address Organization Details Recorded Time 32397 Dilantin medicatio n Not available Not available Not available 02/22/2024 91507 0 RxNorm Not Available [facility] - production 14:48:20 62704 sulfameth oxazole medicatio n Not available Not available Not available 02/22/2024 61648 [facility] 14023 trimethop rim medicatio n Not available Not available Not available 02/22/2024 27958 [facility] 14:48:20 48595 Product containin g penicilli n and antibioti c (product) medicatio n Not available Not available Not available 02/22/2024 44814 05 SN[facility]ED [facility] 14:48:20 48349 penicilli n G benzathin e medicatio n Not available Not available Not available 02/22/2024 7982 RxNorm Not Available [facility] 14:48:20 23626 penicilli n G procaine medicatio n Not [...] Arterial blood by Pulse oximetry Body temperature Heart rate Respiratory rate Systolic blood pressure Diastolic blood pressure Provider Name and Address Organization Details Last Updated DateTime 5 98 % 98 % 98.7 [degF] 94 /min 18 /min 107 mm[Hg] 73 mm[Hg] Not Available [facility] - production 5 18:50:30 Social History None recorded. Functional Status None recorded. Mental Status None recorded. Family History Nothing Reported. Medical History No medical history recorded. Gynecological HistoryNo gynecological history recorded. Obstetrics History GPAL:G 0 P 0 0 0 0 Past Encounters Encounter ID Performer Location Encounter Start Date Encounter Closed Date Diagnosis/Indication Diagnosis SNOMED-CT Code Diagnosis ICD10 Code Diagnosis Note [id number] Jessica Hadley MD Main - [facility] [address] [place] [phone] 03/23/2024 13:03:05 03/25/2024 16:45:46 Urinary symptoms [id number] R39.9 As noted, we were called to see this patient regarding concerns of urinary symptoms. Evaluation in the field was performed by my construction manager colleague, as noted above, I provided real-time [...] changes to consciousn ess, chest pain, dypsnea. [id number] Alisia Aguirre MD [facility] - [address] [phone] 04/01/2024 18:50:28 04/01/2024 19:49:17 Low back pain [id number] M54.50 48 year old female with a history of lumbar radiculopa thy, being evaluated for acute back pain since this evening. Patient reports has been doing well with a regular work out regimen at the gym, and had been pain free these last few weeks, but had an especially hard work out yesterday. She denies bowel/blad juanita incontinen ce, no direct trauma, and no weakness of the lower extremitie s. Prior to [facility]'s visit she took an excedrin which is helping bring the paind own. Exam notable for normal vital signs, neurologic exam is grossly normal. Presentati on consistent with acute on chronic lumbar radiculopa thy, no red flags noted. I have reviewed and agree with the assessment and plan as documented by the construction manager. I provided real-time medical direction for this encounter and was immediatel y available to provide additional phone-base d assistance as needed. We discussed the diagnostic uncertaint y of home visits and associated risks. We discussed the need to seek care urgently/e mergently in the setting of any new or worsening symptoms. Health Concerns Section Related Observation LastModified by Organization Detai ls LastModified Time None Recorded Concern Status LastModified by Organization Details LastModified Time None Recorded Payers Encounter Date Sequence Insurance Name Policy Number Policy Fernandez Covered Member ID Fernandez Member ID Guarantor Name 04/01/2024 1 [facility] - DOS ON OR AFTER 2022 - DUAL ELIGIBLE - [facility] OPTIONS AND ONE C[employer] (MEDICARE REPLACEMENT/ADV ANTAGE - HMO) Atiya Dotson [id number] Atiya Dotson Notes Date Note Type Note Provider Name and Address Organization Details Recorded Time 04/01/2024 text/html [facility] Nurse Triage Notes (Yoli Dalal - RN): Reason For Request: Pt reporting 9 out of 10 back pain Chief Complaints: Back pain PMH: Bipolar Disorder, Gastroesophageal Reflux Disease (GERD), Hypertension PMH Reviewed at 04/01/2024 - 18:17 Allergies Reviewed at 04/01/2024 - 18:17 Pain Assessment: Level 9 out of 10 Comments: Member called in complaining of 9/10, sudden onset backpain. Member has a lower back problem but this feels different. Currently has a UTI and started antibiotics today. Doesn't think the back pain is related but isn't sure. Pain started 30 minutes ago- member has changed positions and taking over the counter pain medication with no relief. Confirms she can move and feel her legs. Member requesting visit for assessment. [facility] RN verified identity via name/. Confirmed phone number. Education provided on expected response time and the member was advised to monitor reported s/s. Member in agreement to seek emergency treatment if needed. Anthony Dalal RN ...................... ...................... ...................... ...................... ...................... ...................... ......... Lead Advisor Note From Inna Galvan: Sent to a call for a pt complaining of back pain. SC8 arrives on scene, pt is alert and oriented, airway is patent. Pt complains of chronic back pain due to herniated discs in L4/L5. Pt states she has been pain free for the past few weeks and started going back to the gym. Pt states she has been doing squats and other strength training. Pt states she had a really hard workout yesterday with no pain. Pt states she was sitting on couch reading tonight and complains of lower back pain on left/right side of spine near L4/L5. Pt states usually her pain is directly on her spine. Pt states she took Excedrin approx 45 minutes prior to visit. Pt states pain is currently decreased due to Excedrin and icing affected area. Pt states she has appt with PCP tomorrow and will contact orthopedics for follow up. BP:107/73, P:94, RR:18, SpO2:98% RA, T:98.7; Head: unremarkable; Lung sounds: clear bilaterally; Abdomen: soft, non-tender, no distention. Back: no deformities/tenderness noted; Extremities: unremarkable; Skin: pink, warm, dry; C consulted and pt is advised to continue symptomatic treatment. Red flags discussed. Pt has no further questions. ...................... ...................... ...................... ...................... ...................... ...................... ......... [facility] Consulted: Alisia Aguirre ...................... ...................... ...................... ...................... ...................... ...................... ......... Disposition: Lizette Aguirre MD [address] [facility],[address], [place], [address], [employer] 04/01/2024 19:22:50 OBGyn Episode No OBEpisode recorded.
--- OUTSIDE RECORDS SUMMARY | 2024-04-02 15:25 | XMS_ITS | Encounter Summary ---
Author Organization [employer] Address [address] [facility] 7t [place] [address] Care Team Providers Care Cottage Supervisor Name Role Phone Maddie Kim MD Primary Care Provider [phone] Reason for Visit * Reason Onset Date Comments Med Refill 03/04/2024 Encounter Details Date Type Department Care Team ([facility] Contact Info) Description 03/04/2024 Refill [facility] MEDICINE 230 [place], [place] [phone] Maddie Kim MD 230 [place], [place] [phone] Social History Tobacco Use Types Packs/Day Years [...] 100 MG capsule To be sent to: [facility] [address] [place] [address]. documented in this encounter Plan of Treatment Upcoming Encounters Date Type Department Care Team (Late st Contact Info) Description 04/18/2024 9:00 AM EST Nutrition [facility] DIABETES/NUTRITION [address] [place] [address] [place] [address] documented as of this encounter Visit Diagnoses Not on filedocumented in this encounter Additional Health Concerns Assessment Noted Time PHQ-9 Depression Total Score: 3 06/15/19 24 11:48 AM EDT documented as of this encounter Care Teams Cottage Supervisor Relationship Specialty Start Date End Date Maddie Kim MD [address] [place] [address] PCP - General Family Medicine 07/12/20 Willie Gage 01/17/22 documented as of this encounter
--- OUTSIDE RECORDS SUMMARY | 2024-04-02 15:25 | XMS_ITS | Encounter Summary ---
Author Organization [employer] Address [address] [place] [address] 7t [place] [address] Care Team Providers Care Title One Reading Teacher Name Role Phone Maddie Kim MD Primary Care Provider [phone] Encounter Details Date Type Department Care Team (Late Contact Info) Description 04/11/2022 Abstract [facility] MEDICINE [address] [place], [place] [phone] Maddie Kim MD 230 [place], [place] [phone] Social History Tobacco Use Types Packs/Day Years [...] Info) Description 04/18/2024 9:00 AM EST Nutrition [facility] DIABETES/NUTRITION [address] [place] [address] [place] [address] documented as of this encounter Visit Diagnoses Not on filedocumented in this encounter Care Teams Title One Reading Teacher Relationship Specialty Start Date End Date Maddie Kim MD [address] [place] [address] PCP - General Family Medicine 07/12/20 Willie Gage 01/17/22 documented as of this encounter
--- OUTSIDE RECORDS SUMMARY | 2024-04-02 15:25 | XMS_ITS | Encounter Summary ---
Author Organization [employer] Address [address] [facility] 7t [place] [address] Care Team Providers Care Hub Inventory Specialist Name Role Phone Maddie Kim MD Primary Care Provider [phone] Reason for Visit * Reason Onset Date Comments Durable Medical Equipment 03/16/2022 Encounter Details Date Type Department Care Team ([facility] st Contact Info) Description 03/16/2022 Telephone [facility] MEDICINE 230 [place], [place] [phone] Maddie Kim MD [address] [place], [place] [phone] Durable Medical Equipment Social History Tobacco Use [...] it can fax to her landlord at [phone]. She would like the script to be to the [facility] [employer] [place], [address] [place] [address] If any concerns please contact pt at [phone] documented in this encounter Plan of Treatment Upcoming Encounters Date Type Department Care Team ([facility] st Contact Info) Description 04/18/2024 9:00 AM EST Nutrition [facility] DIABETES/NUTRITION [address] [place] [address] [place] [address] documented as of this encounter Visit Diagnoses Not on filedocumented in this encounter Care Teams Hub Inventory Specialist Relationship Specialty Start Date End Date Maddie Kim MD [address] [place] [address] PCP - General Family Medicine 07/12/20 Willie Gage 01/17/22 documented as of this encounter
--- OUTSIDE RECORDS SUMMARY | 2024-04-02 15:25 | XMS_ITS | Encounter Summary ---
Author Organization [employer] Address [address] [facility] 7t [place] [address] Care Team Providers Care Web Press Operator Assistant Name Role Phone Maddie Kmi MD Primary Care Provider [phone] Reason for Visit * Reason Onset Date Comments verbal order 03/04/2024 Encounter Details Date Type Department Care Team ([facility] Contact Info) Description 03/04/2024 Telephone [facility] MEDICINE 230 [place], [place] [phone] Maddie Kim MD 230 [place], [place] [phone] verbal order Social History Tobacco Use Types [...] 03/04/2024 2:28 PM EST [facility] requesting verbal order to continue VNA 3x [...] Info) Description 04/18/2024 9:00 AM EST Nutrition [facility] DIABETES/NUTRITION 230 [place], [place] [phone] Rosie Vick RD [address] [place], [place] [phone] documented as of this encounter Visit Diagnoses Not on filedocumented in this encounter Additional Health Concerns Assessment Noted Time PHQ-9 Depression Total Score: 3 06/15/19 24 11:48 AM EDT documented as of this encounter Care Teams Web Press Operator Assistant Relationship Specialty Start Date End Date Maddie Kim MD [address] [place] [address] PCP - General Family Medicine 07/12/20 Willie Gage 01/17/22 documented as of this encounter
--- OUTSIDE RECORDS SUMMARY | 2024-04-02 15:25 | XMS_ITS | Encounter Summary ---
Author Organization [employer] Address [address] [place] [address] 7t [place] [address] Care Team Providers Care Bookkeeping Manager Name Role Phone Maddie Kim MD Primary Care Provider [phone] Reason for Visit * Reason Onset Date Comments Durable Medical Equipment 03/02/2022 Encounter Details Date Type Department Care Team ([facility] st Contact Info) Description 03/02/2022 Telephone [facility] MEDICINE [address] [place] [phone] Shayna Pritchett, MAJO Durable Medical Equipment Social [...] send to L&C Please contact pt at [phone] documented in this encounter Plan of Treatment Upcoming Encounters Date Type Department Care Team (Late st Contact Info) Description 04/18/2024 9:00 AM EST Nutrition [facility] DIABETES/NUTRITION [address] [place] [address] [place] [address] documented as of this encounter Visit Diagnoses Not on filedocumented in this encounter Care Teams Bookkeeping Manager Relationship Specialty Start Date End Date Maddie Kim MD [address] [place] [address] PCP - General Family Medicine 07/12/20 Willie Gage 01/17/22 documented as of this encounter
--- OUTSIDE RECORDS SUMMARY | 2024-04-02 15:25 | XMS_ITS | Encounter Summary ---
Author Organization [employer] Address [address] [facility] 7t [place] [address] Care Team Providers Care Human Resources Psychologist Name Role Phone Maddie Kim MD Primary Care Provider [phone] Encounter Details Date Type Department Care Team ([facility] st Contact Info) Description 02/22/2024 Orders Only [facility] MEDICINE [address] [place], [place] [phone] Maddie Kim MD [address] [place], [place] [phone] Social History Tobacco Use Types Packs/Day Years [...] Info) Description 04/18/2024 9:00 AM EST Nutrition [facility] DIABETES/NUTRITION [address] [place] [address] [place] [address] documented as of this encounter Visit Diagnoses Not on filedocumented in this encounter Additional Health Concerns Assessment Noted Time PHQ-9 Depression Total Score: 3 06/15/19 24 11:48 AM EDT documented as of this encounter Care Teams Human Resources Psychologist Relationship Specialty Start Date End Date Maddie Kim MD [address] [place] [address] PCP - General Family Medicine 07/12/20 Willie Gage 01/17/22 documented as of this encounter
--- OUTSIDE RECORDS SUMMARY | 2024-04-02 15:25 | XMS_ITS | Data Portability ---
Author Organization [employer] Address [address] [place] [address] Care Team Providers Care Sign Designer Name Role Phone HIM [facility] OTHER [facility] OTHER Assessment Encounter Date Assessment Date Assessment LastModified by Organization Details LastModified Time 02/23/2024 02/23/2024 I provided real -time medical direction via phone for this encounter and was available for additional phone-based assistance as needed. I have reviewed and agree with the Assessment and Plan as documented by the Stock Chaser. Patient given the opportunity to ask questions. [...] The patient is now voiding normally. Per rn peritoneal dialysis on the scene the patient has stable vitals and is afebrile currently after taking Tylenol. Known UTI and would continue to take the antibiotic prescribed as well as Tylenol. Discussed red flags. Medic request urine culture sent to [employer]. Allergies: Reviewed Not available 02/23/2024 16:20:42 02/26/2024 02/26/2024 I have reviewed and agree with the assessment and plan as documented by the rn peritoneal dialysis. I provided real-time medical direction for this encounter and was immediately available to provide additional phone-based assistance as needed. History as noted in EMR and by rn peritoneal dialysis. I would add / emphasize: Patient seen [...] None recorded. Lab culture, urine 2024 025 [facility], [address] [place], [address], 5 15:02:19 urinalysis , dipstick 2024 025 [facility], [address] [place] [address], [phone], 5 07:58:13 culture, urine 2024 025 [place] [facility], [address] [place] [address], Mohinder B, [place], [address], 5 04:41:56 culture, urine 2024 025 [place] [facility], [address] [place], [address], 5 08:07:59 rapid flu (A+B) 2024 025 [facility], [address] [place] [address], [id number], 5 08:13:58 rapid SARS CoV 2 Ag, QL IA, respirator y specimen 2024 025 [facility], [address] [place] [address], [address], 5 08:13:39 urinalysis , dipstick 2024 025 [facility], [address] [place], [address], 16:34:28 culture, urine 2024 025 [place] [facility], [address] [place], [address], 20:06:10 Referral None recorded. Procedures None recorded. Surgeries None recorded. Imaging None recorded. Medication Orders Macrobid 100 mg capsule 2024 025 [facility], [address] [place], [address], 5 21:48:16 Macrobid 100 mg capsule 2024 025 [facility], [address] [place], [address], 5 22:18:22 Macrobid 100 mg capsule 2024 025 [facility], [address] [place], [address], 5 21:49:28 phenazopyr idine 100 mg tablet 2024 025 [facility]26, [address] [place], [address], 5 21:48:19 Patient TargetsNo targets recorded. Patient InstructionsNo instructions recorded. Reason for Referral None Reported. Results Created Date Observation Date Name Description Value Unit Range Abnormal Flag Note LastModifiedBy Organization Detail LastModifiedTime 02/22/19 25 02/26/2024 CULTU RE, URINE , ROUTI NE culture, urine, routine SEE NOTE CULTU RE, URINE , ROUTI NE Micro Numbe r: [id number] Test Statu s: Final Speci men Sourc e: Urine Speci men Quali ty: Adequ ate Resul t: No Growt h Not Available [facility] [address] [place] [address] [address], [place], [address], 02/26/2024 04:41:56 02/25/1902/29/2024 URINE CULTU RE,CO MPREH ENSIV E urine culture,comp rehensive Final report Not Available [facility] ([facility]) [address] [place], [address], 02/29/2024 10:06:00 02/25/19 25 02/29/2024 URINE CULTU RE,CO MPREH ENSIV E result 1 COMMEN T No growt h in 36 - 48 hours . Not Available [facility] ([facility]) [address] [place], [address], 02/29/2024 10:06:00 03/23/19 25 03/24/2024 URINE CULTU RE, ROUTI NE urine culture, routine Final report Not Available [facility] ([facility]) [address] [place], [address], 03/24/2024 20:06:10 03/23/19 25 03/24/2024 URINE CULTU RE, ROUTI NE result 1 COMMEN T Cultu re shows less than 10,00 0 colon y formi ng units of bacte carter per angela liter of urine . This colon y count is not gener ally consi dered to be clini rubén signi fican t. Not Available [facility] ([facility]) [address] [facility], [place], [address], 03/24/2024 20:06:10 Result Notes None recorded. Medical Equipment None Reported. Allergies Allergen ID Allergen Name Allergen Category Reaction Reaction Severity Criticality Documentation Date Start Date Code Code System Note Provider Name and Address Organization Details Recorded Time 96715 Dilantin medicatio n Not available Not available Not available 02/22/2024 29010 0 RxNorm Not Available [facility] - production 14:48:20 87682 sulfameth oxazole medicatio n Not available Not available Not available 02/22/2024 03716 RxNorm Not Available [facility] 5 14:48:20 50988 trimethop rim medicatio n Not available Not available Not available 02/22/2024 42977 RxNorm Not Available [facility] 5 14:48:20 22226 Product containin g penicilli n and antibioti c (product) medicatio n Not available Not available Not available 02/22/2024 67869 05 SNOMED Not Available [facility] 5 14:48:20 48076 penicilli n G benzathin e medicatio n Not available Not available Not available 02/22/2024 7982 RxNorm Not Available [facility] 5 14:48:20 03849 penicilli n G procaine medicatio n Not available Not available Not available 02/22/2024 7983 RxNorm Not Available [facility] 5 14:48:20 Medications Name Sig Start Date [...] 5 102 /min 98.8 [degF] 14 /min 771280. 08 g 98 % 98 % 130 mm[Hg] 82 mm[Hg] Not Available [facility] 5 21:29:05 Date Recorded Oxygen saturation Oxygen saturation in Arterial blood by Pulse oximetry Body temperature Body height Respiratory rate Heart rate Body weight Systolic blood pressure Diastolic blood pressure Provider Name and Address Organization Details Last Updated DateTime 5 98 % 98 % 98.4 [degF] 157.48 cm 19 /min 96 /min 871578. 712 g 125 mm[Hg] 82 mm[Hg] Not Available [facility] 5 14:39:11 Date Recorded Body temperature Heart rate Respiratory rate Oxygen saturation Oxygen saturation in Arterial blood by Pulse oximetry Systolic blood pressure Diastolic blood pressure Provider Name and Address Organization Details Last Updated DateTime 5 100.9 [degF] 90 /min 16 /min 95 % 95 % 123 mm[Hg] 85 mm[Hg] Not Available [facility] 5 11:22:20 Date Recorded Respiratory rate Body temperature Oxygen saturation Oxygen saturation in Arterial blood by Pulse oximetry Heart rate Systolic blood pressure Diastolic blood pressure Provider Name and Address Organization Details Last Updated DateTime 5 16 /min 98.2 [degF] 100 % 100 % 99 /min 124 mm[Hg] 84 mm[Hg] Not Available [facility] production 5 13:03:07 Date Recorded Oxygen saturation Oxygen saturation in Arterial blood by Pulse oximetry Body temperature Heart rate Respiratory rate Systolic blood pressure Diastolic blood pressure Provider Name and Address Organization Details Last Updated DateTime 5 98 % 98 % 98.7 [degF] 94 /min 18 /min 107 mm[Hg] 73 mm[Hg] Not Available [facility] - production 18:50:30 Social History None recorded. Functional Status None recorded. Mental Status None recorded. Family History Nothing Reported. Medical History No medical history recorded. Gynecological HistoryNo gynecological history recorded. Obstetrics History GPAL:G 0 P 0 0 0 0 Past Encounters Encounter ID Performer Location Encounter Start Date Encounter Closed Date Diagnosis/Indication Diagnosis SNOMED-CT Code Diagnosis ICD10 Code Diagnosis Note [id number] ARIEL YAO MD Main - [facility] [address] [place] [phone] 02/22/2024 21:29:01 02/23/2024 18:48:12 Urinary symptoms 109435019 R39.9 Evaluation in the field was performed by my rn peritoneal dialysis colleague, as noted above, I provided real-time [...] first dose was administer ed by the rn peritoneal dialysis. -To alleviate the burning sensation, a prescripti [...] or flank pain or any other concerns. [id number] Fawn Coelho MD Main - [facility] [address] [place] [phone] 02/23/2024 14:34:12 02/23/2024 18:56:04 Urinary symptoms [id number] R39.9 [id number] Aramis Gallardo MD Main - [facility] [address] [place] [phone] 02/26/2024 11:22:16 02/28/2024 11:56:29 Urinary symptoms [id number] R39.9 Fever 048402954 R50.9 [id number] Jessica Hadley MD Main - [address] [phone] 03/23/2024 13:03:05 03/25/2024 16:45:46 Urinary symptoms [id number] R39.9 As noted, we were called to see this patient regarding concerns of urinary symptoms. Evaluation in the field was performed by my rn peritoneal dialysis colleague, as noted above, I provided real-time [...] changes to consciousn ess, chest pain, dypsnea. [id number] Alisia Aguirre MD Main - [address] [phone] 04/01/2024 18:50:28 04/01/2024 19:49:17 Low back pain [id number] M54.50 48 year old female with a [...] of the lower extremitie s. Prior to [facility]'s visit she took an excedrin which is helping bring the paind own. Exam notable for normal vital signs, neurologic exam is grossly normal. Presentati on consistent with acute on chronic lumbar radiculopa thy, no red flags noted. I have reviewed and agree with the assessment and plan as documented by the rn peritoneal dialysis. I provided real-time medical direction for this [...] Fernandez Member ID Guarantor Name 02/22/2024 1 [facility] - DOS ON OR AFTER 2022 - DUAL ELIGIBLE - RETIREMENT OPTIONS AND ONE CARE (MEDICARE REPLACEMENT/ADV ANTAGE - HMO) Atiya Dotson [id number] Atiya Dotson 02/23/2024 1 [facility] - DOS ON OR AFTER 2022 - DUAL ELIGIBLE - RETIREMENT OPTIONS AND ONE CARE (MEDICARE REPLACEMENT/ADV ANTAGE - HMO) Atiya Dotson [id number] Atiya Dotson 02/26/2024 1 [facility] - DOS ON OR AFTER 2022 - DUAL ELIGIBLE - RETIREMENT OPTIONS AND ONE CARE (MEDICARE REPLACEMENT/ADV ANTAGE - HMO) Atiya Dotson [id number] Atiya Dotson 03/23/2024 1 [facility] - DOS ON OR AFTER 2022 - DUAL ELIGIBLE - RETIREMENT OPTIONS AND ONE CARE (MEDICARE REPLACEMENT/ADV ANTAGE - HMO) Atiya Dotson [id number] Atiya Dotson 04/01/2024 1 [facility] [employer] - DOS ON OR AFTER 2022 - DUAL ELIGIBLE - RETIREMENT OPTIONS AND ONE CARE (MEDICARE REPLACEMENT/ADV ANTAGE - HMO) Atiya Dotson [id number] Atiya Dotson Notes Date Note Type Note [...] any additional information to process this visit. Stock Chaser Organization Information for [employer] Legal Name: [employer].? Address: [address] [place] [address] Escalator Mechanic: Benjy Haile MD [facility] No.: [id number] Stock Chaser POC Test Results from [employer] Urine Dipstick (21:31:12) Urine leukocytes: 125+++ LEXIE [...] ...................... ...................... ...................... ...................... ...................... ...................... ......... Stock Chaser Note From Summer Del Rio: Disp for [...] enough for a culture sample. Consulted with [facility] Dr. Yao. Dr. Yao confirmed UTI with urine dipstick results. Dr. Yao ordered 100mgs of Macrobid PO. Dr. Yao sent antibiotic and Pyridium to pharmacy. Dr. Yao advised patient to stop drinking caffeine and increase fluids as much as possible. Dr. Yao advised patient if UTI symptoms do not improved on antibiotic in one to two days, schedule another appointment with [facility] for urine culture. Patient understood. Patient administered 100mgs of macrobid PO. Patient educated on red flags/risk factors. All times approx.. ...................... ...................... ...................... ...................... ...................... ...................... ......... [facility] Consulted: Ariel Yao ...................... ...................... ...................... ...................... ...................... ...................... ......... Disposition: Lizette ARIEL YAO MD [address] [facility],[address], [place], [address], [employer] 02/22/2024 22:29:56 02/23/2024 text/html CRC Nurse Triage [...] ...................... ...................... ...................... ...................... ...................... ...................... ......... Stock Chaser Note From Elias Garrison: Pt chief complaint today of fever/ uti symptoms going on for x 1 week. Pt was seen by [facility] personnel 1 day prior to her [facility] meeting today, urine dip was taken and positive for leukocytes and nitrates. [facility] medic was not able to acquire a [...] blurred vision. Pt has taken Tylenol before [facility] arrival for fever suppression.Nonneural focal exam, afebrile, vitals WNL, lungs are clear bilaterally. Benign abdominal assessment, no lower extremity edema noted. Pt is CAOX4 with GCS of 15. Urine culture acquired, no urine dip due to positivity yesterday.[facility] Fawn Coelho consultedPt informed, to continue taking her antibiotic which was prescribed prior to her [facility] visit today. Pt told to intake fluids and take 1 gram of Tylenol every 8 hours in a 24 hour period as needed for general aches and fever. Pt also educated on red flag S&S and informed to call emergency services if any present. ...................... ...................... ...................... ...................... ...................... ...................... ......... [facility] Consulted: Fawn Coelho ...................... ...................... ...................... ...................... ...................... ...................... ......... Disposition: Fulfilled Fawn Coelho MD [address] [facility],[address], [place], [address], [employer] 02/23/2024 16:21:22 02/26/2024 text/html CRC Nurse Triage Notes (Tami Ambriz - RN): Chief Complaints: Common cold symptoms, Cough, Headache PMH: Bipolar Disorder, Gastroesophageal Reflux Disease (GERD), Hypertension PMH Reviewed at 02/26/2024 Allergies Reviewed at 02/26/2024:34 Comments: Patient called [...] relief. She would like to be evaluated. Stock Chaser Organization Information for Sandro Kearney [employer] Legal Name: [facility] Address: [address] [place] [address], Escalator Mechanic: Jeff Bautista MD CLIA No.: [id number] Stock Chaser POC Test Results from [employer] Rapid COVID antigen (11:21:01) COVID: - Rapid influenza antigen (11:21:02) Flu: - ...................... ...................... ...................... ...................... ...................... ...................... ......... Stock Chaser Note From Sandro Kearney: This 48-year-old female [...] ...................... ...................... ...................... ...................... ...................... ...................... ......... [facility] Consulted: Aramis Gallardo ...................... ...................... ...................... ...................... ...................... ...................... ......... Disposition: Fulfilled Aramis Gallardo MD [address] [place] [address],[address], [place], [address], [employer] 02/28/2024 06:38:26 03/23/2024 text/html CRC Nurse Triage [...] Disease (GERD), Hypertension PMH Reviewed at 03/23/2024 - 12:27 Allergies Reviewed at 03/23/2024 - 12: Comments: Template Clerk verified the Pt.'s name//address and phone number. [...] Tylenol for pain - Wellness visit requested Stock Chaser Organization Information for Christel Sandro [employer] Legal Name: [facility] Address: [address] [place] [address], [place] [address], Escalator Mechanic: Jeff COLON No.: [id number] Stock Chaser POC Test Results from Sandro Kearney - ALS Urine Dipstick (13:07:26) Urine leukocytes: trace LEXIE Urine nitrites: - NIT Urine urobilinogen: - URO Urine protein: - PRO Urine pH: 5.0 pH Urine blood: - BLO Urine specific gravity: 1.010 SG Urine ketones: - KET Urine bilirubin: - MARCEL Urine glucose: - GLU ...................... ...................... ...................... ...................... ...................... ...................... ......... Stock Chaser Note From Sandro Kearney: This 48-year-old female [...] ...................... ...................... ...................... ...................... ...................... ...................... ......... [facility] Consulted: Jessica Hadley ...................... ...................... ...................... ...................... ...................... ...................... ......... Disposition: Fulfilled Jessica Hadley MD [address] [place] [address],[address] [facility], [place], [address], [employer] 03/23/2024 13:41:47 04/01/2024 text/html CRC Nurse Triage Notes (Yoli Dalal RN): Reason For Request: Pt reporting 9 [...] her legs. Member requesting visit for assessment. JUANIS RN verified identity via name/. Confirmed phone number. Education provided on expected response time and the member was advised to monitor reported s/s. Member in agreement to seek emergency treatment if needed. Anthony Dalal RN ...................... ...................... ...................... ...................... ...................... ...................... ......... Stock Chaser Note From Inna Galvan: Sent to a [...] noted; Extremities: unremarkable; Skin: pink, warm, dry; [facility] consulted and pt is advised to continue symptomatic treatment. Red flags discussed. Pt has no further questions. ...................... ...................... ...................... ...................... ...................... ...................... ......... [facility] Consulted: Alisia Aguirre ...................... ...................... ...................... ...................... ...................... ...................... ......... Disposition: Fulfilled Alisia Aguirre MD [address] [facility],[address] [facility], [place], [address], [employer] HealthARIELLE BALLARD 04/01/2024 19:22:50 OBGyn Episode No OBEpisode recorded.
--- OUTSIDE RECORDS SUMMARY | 2024-04-02 15:25 | XMS_ITS | Encounter Summary ---
Author Organization [employer] Address [address] [facility] 7t [place] [address] Care Team Providers Care Card Dealer Name Role Phone Maddie Kim MD Primary Care Provider [phone] Reason for Visit * Reason Onset Date Comments Verbal orders/ Medication question 05/08/2023 Encounter Details Date Type Department Care Team ([facility] Contact Info) Description 05/08/2023 Telephone [facility] MEDICINE [address] [place], [place] [phone] Maddie Kim MD [address] [place], [place] [phone] Verbal orders/ Medication question Social History Tobacco [...] Miscellaneous Notes * Telephone Encounter - Stella Bialey RN - 05/09/2023 9:54 AM EDT TC [facility] to [facility] and gave VO for prison for 3 times a week. Pt medications were also reconciled and pt reports using Viviscal OTC for hair growth and Calcium + VitD supplements. * Telephone Encounter - Toña Castillo - 05/08/2023 4:20 PM EDT Tc from [facility] requesting some verbal orders reconciliation for skill nursing 3 times a week. [facility] is also requesting a call back to speak about patient's medications. documented in this encounter Plan of Treatment Upcoming Encounters Date Type Department Care Team (Late st Contact Info) Description 04/18/2024 9:00 AM EST Nutrition [facility] DIABETES/NUTRITION [address] [place] [address] [place] [address] documented as of this encounter Visit Diagnoses Not on filedocumented in this encounter Additional Health Concerns Assessment Noted Time PHQ-9 Depression Total Score: 0 05/30/19 23 3:26 PM EDT documented as of this encounter Care Teams Card Dealer Relationship Specialty Start Date End Date Maddie Kim MD [address] [place] [address] PCP - General Family Medicine 07/12/20 Willie Gage 01/17/22 documented as of this encounter
--- OUTSIDE RECORDS SUMMARY | 2024-04-02 15:25 | XMS_ITS | Encounter Summary ---
Author Organization [employer] Address [address] [place] [address] 7t [place] [address] Care Team Providers Care Fish Boning Machine Feeder Name Role Phone Maddie Kim MD Primary Care Provider [phone] Encounter Details Date Type Department Care Team ([facility] Contact Info) Description 06/26/2022 Abstract [facility] MEDICINE [address] [place] [address] Maddie Kim MD [address] [place] [address] Social History Tobacco Use Types Packs/Day Years [...] Encounters Date Type Department Care Team ([facility] Contact Info) Description 04/18/2024 9:00 AM EST Nutrition [facility] DIABETES/NUTRITION [address] [place] [address] Rosie Vick, SHANICE [address] [place], [place] [phone] documented as of this encounter Visit Diagnoses Not on filedocumented in this encounter Additional Health Concerns Assessment Noted Time PHQ-9 Depression Total Score: 0 05/30/19 23 3:26 PM EDT documented as of this encounter Care Teams Fish Boning Machine Feeder Relationship Specialty Start Date End Date Maddie Kim MD [address] [place], [place] [phone] PCP - General Family Medicine 07/12/20 Willie Gage 01/17/22 documented as of this encounter
--- OUTSIDE RECORDS SUMMARY | 2024-04-02 15:25 | XMS_ITS | Encounter Summary ---
Author Organization [employer] Address [address] [place] [address] 7t [place] [address] Care Team Providers Care Electrical Line Mechanic Name Role Phone Maddie Kim MD Primary Care Provider [phone] Encounter Details Date Type Department Care Team ([facility] Contact Info) Description 07/05/2022 Orders Only [facility] MEDICINE [address] [place], [place] [phone] Maddie Kim MD 230 [place], [place] [phone] Social History Tobacco Use Types Packs/Day Years [...] Info) Description 04/18/2024 9:00 AM EST Nutrition [facility] DIABETES/NUTRITION 230 [place], [place] [phone] Rosie Vick RD [address] [place], [place] [phone] documented as of this encounter Visit Diagnoses Not on filedocumented in this encounter Additional Health Concerns Assessment Noted Time PHQ-9 Depression Total Score: 0 05/30/19 23 3:26 PM EDT documented as of this encounter Care Teams Electrical Line Mechanic Relationship Specialty Start Date End Date Maddie Kim MD 230 [place] [address] PCP - General Family Medicine 07/12/20 Willie Gage 01/17/22 documented as of this encounter
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
--- OUTSIDE RECORDS SUMMARY | 2024-04-02 15:25 | XMS_ITS | Encounter Summary ---
Author Organization [employer] Address [address] [place] [address] 7t [place] [address] Care Team Providers Care Religious Activities Director Name Role Phone Maddie Kim MD Primary Care Provider [phone] Reason for Visit * Reason Onset Date Comments Hospital Follow-up 03/28/2024 Encounter Details Date Type Department Care Team ([facility] Contact Info) Description 03/28/2024 Telephone [facility] MEDICINE [address] [place], [place] [phone] Maddie Kim MD [address] [place], [place] [phone] Hospital Follow-up Social History Tobacco Use Types Packs/Day Years [...] * Telephone Encounter - Zach Carlson - 03/28/2024 1:11 PM EST Tc from pt requesting a HDF appt. Hospital: [facility] Date of admission: 03/24/24 Discharge date: 03/27/24 Diagnosed: Hyponatremia *Send message to [place] Clinical Care Coordinators documented in this encounter Plan of Treatment Upcoming Encounters Date Type Department Care Team (Late st Contact Info) Description 04/18/2024 9:00 AM EST Nutrition [facility] DIABETES/NUTRITION [address] [place] [address] [place] [address] documented as of this encounter Visit Diagnoses Not on filedocumented in this encounter Additional Health Concerns Assessment Noted Time PHQ-9 Depression Total Score: 3 06/15/19 24 11:48 AM EDT documented as of this encounter Care Teams Religious Activities Director Relationship Specialty Start Date End Date Maddie Kim MD [address] [place] [address] PCP - General Family Medicine 07/12/20 Willie Gage 01/17/22 documented as of this encounter
--- OUTSIDE RECORDS SUMMARY | 2024-04-02 15:25 | XMS_ITS | Encounter Summary ---
Author Organization [employer] Address [address] [facility] 7t [place] [address] Care Team Providers Care Advanced Practice Provider Name Role Phone Maddie Kim MD Primary Care Provider [phone] Reason for Visit * Reason Comments Med Refill Encounter Details Date Type Department Care Team ([facility] st Contact Info) Description 04/12/2023 Refill [facility] [address] [place] [phone] Isac Gonzalez MD [address] [place], [place] [phone] Chronic bilateral low back pain without sciatica [...] EST Nutrition [facility] DIABETES/NUTRITION [address] [place] [address] [place] [address] documented as of this encounter Visit Diagnoses Diagnosis Chronic bilateral low back pain without sciatica documented in this encounter Additional Health Concerns Assessment Noted Time PHQ-9 Depression Total Score: 0 05/30/19 23 3:26 PM EDT documented as of this encounter Care Teams Advanced Practice Provider Relationship Specialty Start Date End Date Maddie Kim MD [address] [place] [address] PCP - General Family Medicine 07/12/20 Willie Gage 01/17/22 documented as of this encounter
--- OUTSIDE RECORDS SUMMARY | 2024-04-02 15:25 | XMS_ITS | Encounter Summary ---
Author Organization [employer] Address [address] [facility] 7t [place] [address] Care Team Providers Care Materials Intern Name Role Phone Maddie Kim MD Primary Care Provider Reason for Visit * Reason Comments Transition Of Care (Tcm) HDF- Unschedule d- PATIENT REQ. A HDF WITHIN 7 DAYS AND ONLY WITH HER PCP Encounter Details Date Type Department Care Team ([facility] st Contact Info) Description 03/28/2024 Patient Outreach [facility] MEDICINE 230 [place], [place] [phone] Maddie Kim MD 230 [place], [place] [phone] Transition Of Care (Tcm) (HDF- Unscheduled- PATIENT REQ. A HDF WITHIN 7 DAYS AND ONLY WITH HER PCP) Social History Tobacco Use Types Packs/Day Years [...] t he electric, gas, oil or water [employer] threatened to shut off services in your home? No 07/06/2023 Depression Answer Date Recorded Patient Health Questionnaire-2 Score 0 06/15/2023 Comments No Sex and Gender Information Value Date Recorded Sex Assigned at Female 12/19/2021 10:17 AM EDT Legal Sex Female 10:17 AM EDT Gender Identity Female 12/19/2021 10:17 AM EDT Sexual Orientation Straight 12/19/2021 10 :17 AM EDT documented as of this encounter Progress Notes * Sheila Rene RN - 03/28/2024 1:27 PM EST TC placed to patient [phone] in regards to below message. Patient did not answer, RN left requesting CB to red team nurses. RN will re-attempt tomorrow if no CB. documented in this encounter Miscellaneous Notes * Significant Event - Ruby Summers - 03/28/2024 1:34 PM EST 03/28/24 1332 Hospital Discharges and Admission for [facility] Type of Visit Hospital Admission Date of Admission/Visit 03/25/24 Date of Discharge 03/27/24 Facility [facility] Diagnosis Hyponatremia Disposition Discharged Home Follow-Up Actions Follow-Up Needed Provider appointment Follow-Up Outcome Spoke to Patient Initial Contact Date 03/28/24 TRISTIN Lara placed outbound call to patient for HDF outreach. Patient's name and were confirmed. Patient educated on the importance of follow up with provider following inpatient admission. Patient offered an HDF appt for 04/15/2024 with or 04/18/2024 with . Patient declined the HDF appt and stated the appointment has to be within a week and also I dont want it with no other doctor but . The reason I ended up in the hospital it was because of one of the provider that I saw at the urgent care . CC scanned discharge summary into patient's chart. Message sent to team nurses to follow up with patient and scheduling. documented in this encounter Plan of Treatment Upcoming Encounters Date Type Department Care Team (Late st Contact Info) Description 04/18/2024 9:00 AM EST Nutrition [facility] DIABETES/NUTRITION 230 [place], [place] [phone] Rosie Vick, SHANICE [address] [place] [address] documented as of this encounter Visit Diagnoses Not on filedocumented in this encounter Additional Health Concerns Assessment Noted Time PHQ-9 Depression Total Score: 3 06/15/19 24 11:48 AM EDT documented as of this encounter Care Teams Materials Intern Relationship Specialty Start Date End Date Maddie Kim MD [address] [place] [address] PCP - General Family Medicine 07/12/20 Willie Gage 01/17/22 documented as of this encounter
--- OUTSIDE RECORDS SUMMARY | 2024-04-02 15:25 | XMS_ITS | Encounter Summary ---
Author Organization [employer] Address [address] [facility] 7t [place] [address] Care Team Providers Care Clinical Laboratory Science Professor Name Role Phone Maddie Kim MD Primary Care Provider Reason for Visit * Reason Onset Date Comments NUTRITION APPT REQUEST 03/20/2024 Encounter Details Date Type Department Care Team ([facility] Contact Info) Description 03/20/2024 Telephone [facility] MEDICINE 230 [place] [address] [place], [place] [phone] NUTRITION APPT REQUEST Social History Tobacco Use [...] 04/18/2024 9:00 AM EST Nutrition [facility] DIABETES/NUTRITION 230 [place] [address] [place] [address] documented as of this encounter Visit Diagnoses Not on filedocumented in this encounter Additional Health Concerns Assessment Noted Time PHQ-9 Depression Total Score: 3 06/15/19 24 11:48 AM EDT documented as of this encounter Care Teams Clinical Laboratory Science Professor Relationship Specialty Start Date End Date Maddie Kim MD 230 [place] [address] PCP - General Family Medicine 07/12/20 Willie Gage 01/17/22 documented as of this encounter
--- OUTSIDE RECORDS SUMMARY | 2024-04-02 15:25 | XMS_ITS | Encounter Summary ---
Author Organization [employer] Address [address] [facility] 7t [place] [address] Care Team Providers Care Shoe Lacer Name Role Phone Maddie Kim MD Primary Care Provider [phone] Reason for Visit * Reason Onset Date Comments Med Refill 04/12/2023 Encounter Details Date Type Department Care Team ([facility] st Contact Info) Description 04/12/2023 Refill [facility] MEDICINE [address] [place], [place] [phone] Maddie Kim MD [address] [place], [place] [phone] Chronic bilateral low back pain without sciatica [...] Description 04/18/2024 9:00 AM EST Nutrition [facility] DIABETES/NUTRITION [address] [place] [address] [place] [address] documented as of this encounter Visit Diagnoses Diagnosis Chronic bilateral low back pain without sciatica documented in this encounter Additional Health Concerns Assessment Noted Time PHQ-9 Depression Total Score: 0 05/30/19 23 3:26 PM EDT documented as of this encounter Care Teams Shoe Lacer Relationship Specialty Start Date End Date Maddie Kim MD 230 [place] [address] PCP - General Family Medicine 07/12/20 Willie Gage 01/17/22 documented as of this encounter
--- OUTSIDE RECORDS SUMMARY | 2024-04-02 15:26 | XMS_ITS | Continuity of Care Document ---
Author Organization [facility] [place] [facility], [place] - [facility] Address [address] [place] [phone] Care Team Providers Care Delphi Programmer Name Role Phone HIM [facility] OTHER [facility] OTHER Assessment No assessment recorded. Plan of Treatment Reminders Order Date Submit Date Provider Last Modified By Organization Details Last Modified Time Details Appointments None recorded. Lab urinalysis , dipstick 2024 025 [facility], [address] [place] [address], [id number], 16:34:28 culture, urine 2024 025 [place] [facility], [address] [place] [address], [address], 20:06:10 Referral None recorded. Procedures None recorded. [...] Name and Address Organization Details Recorded Time 01716 Dilantin medicatio n Not available Not available Not available 02/22/202438076 0 RxNorm Not Available [facility] - production 14:48:20 96030 sulfameth oxazole medicatio n Not available Not available Not available 02/22/2024 53133 RxNorm Not Available [facility] - production 14:48:20 95828 trimethop rim medicatio n Not available Not available Not available 02/22/2024 06630 RxNorm Not Available [facility] - production 14:48:20 95580 Product containin g penicilli n and antibioti c (product) medicatio n Not available Not available Not available 02/22/2024 48777 05 SNOMED Not Available [facility] [place] 14:48:20 10281 penicilli n G benzathin e medicatio n Not available Not available Not available 02/22/2024 7982 RxNorm Not Available [facility] [place] 14:48:20 30422 penicilli n G procaine medicatio n Not available Not available Not available 02/22/2024 7983 RxNorm Not Available [facility] [place] 14:48:20 Medications Name Sig Start Date Stop [...] SNOMED-CT Code Diagnosis ICD10 Code Diagnosis Note [id number] KALYN YAO MD Main - [facility] [address] [place] [phone] 02/22/2024 21:29:01 02/23/2024 18:48:12 Urinary symptoms 134051957 R39.9 Evaluation in the field was performed by my shelf drier operator colleague, as noted above, I provided real-time [...] first dose was administer ed by the shelf drier operator. -To alleviate the burning sensation, a prescripti [...] or flank pain or any other concerns. [id number] Fawn Coelho MD Main - [facility] [address] [place] [phone] 02/23/2024 14:34:12 02/23/2024 18:56:04 Urinary symptoms [id number] R39.9 [id number] Aramis Gallardo MD Main - [facility] [address] [place] [phone] 02/26/2024 11:22:16 02/28/2024 11:56:29 Urinary symptoms 881568134 R39.9 Fever 465220671 R50.9 [id number] Jessica Hadley MD Main - [facility] [address] [place] [phone] 03/23/2024 13:03:05 03/25/2024 16:45:46 Urinary symptoms [id number] R39.9 As noted, we were called to see this patient regarding concerns of urinary symptoms. Evaluation in the field was performed by my shelf drier operator colleague, as noted above, I provided real-time [...] Fernandez Member ID Guarantor Name 03/23/2024 1 [facility] - DOS ON OR AFTER 2022 - DUAL ELIGIBLE - LONG TERM OPTIONS AND ONE CARE (MEDICARE REPLACEMENT/ADV ANTAGE - HMO) Atiya Dotson [id number] Atiya Dotson Notes Date Note Type Note Provider Name and Address Organization Details Recorded Time 03/23/2024 text/html CRC Nurse Triage Notes (Bari Salinsa - RN): Reason For Request: Possible UTI. [...] at 03/23/2024 Allergies Reviewed at 03/23/2024 Comments: Manager Brand verified the Pt.'s name//address and phone number. [...] Tylenol for pain - Wellness visit requested Ware Server Organization Information for Sandro Kearney Class Central Legal Name: [facility] Address: [address] [place] [address], Manager Bench: Jeff Bautista MD IA No.: [id number] Ware Server POC Test Results from [facility] Urine Dipstick (13:07:26) Urine leukocytes: trace LEXIE Urine nitrites: - NIT Urine urobilinogen: - URO Urine protein: - PRO Urine pH: 5.0 pH Urine blood: - BLO Urine specific gravity: 1.010 SG Urine ketones: - KET Urine bilirubin: - MARCEL Urine glucose: - GLU ...................... ...................... ...................... ...................... ...................... ...................... ......... Ware Server Note From Sandro Kearney: This 48-year-old female [...] ...................... ...................... ...................... ...................... ...................... ...................... ......... [facility] Consulted: Krones, Jessica ...................... ...................... ...................... ...................... ...................... ...................... ......... Disposition: Fulfilled Jessica Hadley MD [address] [facility],[address], [place], [address], [employer] [facility] 03/23/2024 13:41:47 OBGyn Episode No OBEpisode recorded.
--- OUTSIDE RECORDS SUMMARY | 2024-04-02 15:26 | XMS_ITS | Data Portability ---
Author Organization MD - [facility] Pamella Flynn - [facility] Address [address] [place] [address] Care Team Providers Care Regional Sales Representative Name Role Phone ALEXIS RANGEL Primary Care Provider [phone] ALEXIS RANGEL Referring Provider Assessment Encounter Date [...] By Organization Details Last Modified Time 07/24/2019 [id number] FINAL Reason: GI BLEEDING EXAM# DEPT/EXAM EXAM DATE TIME [id number] CCT - Angio Abd Plevis W-WO Contrast [...] of constipation. Report Read by: ANTONINO WEBSTER [id number] on Jun 06 2019 4:55P Transcribed by: on Jun 06 2019 4:44P Report Electronically Signed by: DR. ANTONINO WEBSTER on: Jun 06 2019 4:55P [id number] [email or web address] Not available 07/24/2019 14:04:23 Reason for Referral None Reported. Problems Name Problem SNOMED Code Status Onset Date Resolution Date Notes Provider Name and Address Organization Details Recorded Time Diarrhea 13564210 Active 2019 MD María Elena Joe [address], [place], [phone], [facility] - [facility] Endoscopy 0 14:09:16 Hematochezia 886382438 Active 2019 MD María Elena Joe [address], [place], [phone], [facility] Endoscopy 0 14:09:25 Problem Notes None recorded. Medical Equipment None Reported. Allergies Allergen ID Allergen Name Allergen Category Reaction Reaction Severity Criticality Documentation Date Start Date Code Code System Note Provider Name and Address Organization Details Recorded Time 02858 Product containin g penicilli n and antibioti c (product) medicatio n Not available Not available Not available 07/24/2019 89097 05 SNOMED MD María Elena Joe [address], [place], [phone], [facility] Endoscopy 0 14:04:50 15445 Dilaudid medicatio n Not available Not available Not available 07/24/2019 32714 3 RxNorm MD María Elena Joe [address], [place], [phone], [facility] Endoscopy 0 14:04:55 Medications Name Sig Start [...] LastModified Time Tobacco Smoking Status Former Smoker Gulshan Lowry MD [address], [place], [address], [facility] Endoscopy 07/24/2019 14:06:56 What Is Your Level [...] 2019 14:14:00 Medical History Condition Response Depression/Anxiety Thyroid disease Y GI Disorders (GERD/IBD/IBS/Sprue) Y Gynecological HistoryNo gynecological history recorded. Obstetrics History GPAL:G 0 P 0 0 0 0 Past Encounters Encounter ID Performer Location Encounter Start Date Encounter Closed Date Diagnosis/Indication Diagnosis SNOMED-CT Code Diagnosis ICD10 Code Diagnosis Note [id number] Gulshan Lowry MD JYamin - [facility] [address] [place] [id number] 07/24/2019 08:51:48 07/28/2019 10:40:36 Hematochezia 640842310 K92.1 Chronic diarrhea 5863413 09 K52.9 Health Concerns Section Related Observation LastModified by Organization Detai ls LastModified Time None Recorded Concern Status LastModified by Organization Details LastModified Time None Recorded Advance Directives Directive None Recorded Payers Encounter Date Sequence Insurance Name Policy Number Policy Fernandez Covered Member ID Fernandez Member ID Guarantor Name 07/24/2019 1 [place] [employer] Atiya Y Isaias [id number] Atiya Y Portal 07/24/2019 2 [place] [employer] Atiya Frost Portal [id number] Atiya Frost Isaias Notes Date Note Type Note Provider Name [...] abdominal pain as well. Gulshan Lowry MD [address] [place] [address],[address], [place], [address], [facility] - [facility] Endoscopy 07/24/2019 14:21:54 OBGyn Episode No OBEpisode recorded.
--- OUTSIDE RECORDS SUMMARY | 2024-04-02 15:26 | XMS_ITS | Encounter Summary ---
Author Organization [employer] Address [address] [facility] 7t [place] [address] Care Team Providers Care Station Chief Name Role Phone Maddie Kim MD Primary Care Provider [phone] Encounter Details Date Type Department Care Team ([facility] st Contact Info) Description 03/19/2023 Orders Only [facility] MEDICINE [address] [place], [place] [phone] Maddie Kim MD [address] [place], [place] [phone] Herniated lumbar intervertebral disc (Primary Dx) Social [...] Info) Description 04/18/2024 9:00 AM EST Nutrition [facility] DIABETES/NUTRITION [address] [place] [address] Rosie Vick, SHANICE [address] [place] [address] documented as of this encounter Visit Diagnoses Diagnosis Herniated lumbar intervertebral disc- Primary Displacement of lumbar intervertebral disc without myelopathy documented in this encounter Additional Health Concerns Assessment Noted Time PHQ-9 Depression Total Score: 0 05/30/19 23 3:26 PM EDT documented as of this encounter Care Teams Station Chief Relationship Specialty Start Date End Date Maddie Kim MD [address] [place] [address] PCP - General Family Medicine 07/12/20 Willie Gage 01/17/22 documented as of this encounter
--- OUTSIDE RECORDS SUMMARY | 2024-04-02 15:26 | XMS_ITS | Encounter Summary ---
Author Organization [employer] Address [address] [facility] 7t [place] [address] Care Team Providers Care Pigment Mixer Name Role Phone Maddie Kim MD Primary Care Provider [phone] Reason for Visit * Reason Onset Date Comments Med Refill 04/04/2023 Encounter Details Date Type Department Care Team ([facility] st Contact Info) Description 04/04/2023 Refill [facility] WALK[facility]IN C[facility] [address] [place] [address] [phone] Isac Gonzalez MD [address] [place], [place] [phone] Chronic bilateral low back pain without sciatica [...] your housing situation today? I have salomesundar benjamni 11/27/[address] you li [...] Nutrition [facility] DIABETES/NUTRITION [address] [place] [address] [place] [address] documented as of this encounter Visit Diagnoses Diagnosis Chronic bilateral low back pain without sciatica documented in this encounter Additional Health Concerns Assessment Noted Time PHQ-9 Depression Total Score: 0 05/30/19 23 3:26 PM EDT documented as of this encounter Care Teams Pigment Mixer Relationship Specialty Start Date End Date Maddie Kim MD [address] [place] [address] PCP - General Family Medicine 07/12/20 Willie Gage 01/17/22 documented as of this encounter
--- OUTSIDE RECORDS SUMMARY | 2024-04-02 15:26 | XMS_ITS | Encounter Summary ---
Author Organization [employer] Address [address] [facility] 7t [place] [address] Care Team Providers Care Pre K Teacher Name Role Phone Maddie Kim MD Primary Care Provider [phone] Reason for Visit * Reason Onset Date Comments Med Refill 03/19/2023 Encounter Details Date Type Department Care Team ([facility] Contact Info) Description 03/19/2023 Telephone [facility] MEDICINE [address] [place] [address] Maddie Kim MD 230 [place], [place] [phone] Med Refill Social History Tobacco Use Types [...] Pt agrees. MD Maddie Saravia RN; [facility] Team Nurses Caller: Unspecified (2 weeks ago) I wrote her a work excuse extending her time for remote work until 04/05/23 * Telephone Encounter - Maddie Crawford RN - 04/02/2023 3:02 PM EST Images from the original note were not included. Triage call regarding Pt portal message below. Pt continues to have symptoms of Covid. Pt was seen in [facility] 03/29/[address] Gonzalez and dx of [...] better sooner [facility]. 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-19 by Doctor (or CRAB MEAT PROCESSOR/PA) and Mild Symptoms * General Care Advice for COVID-19 Symptoms * Humidifier * Coughing Spells * Pain and Fever Medicines * Mild Stomach and Intestinal Symptoms During COVID-19 Illness Atiya Johnson [facility] Clinial Support (supporting Lorrie Alaniz [...] Info) Description 04/18/2024 9:00 AM EST Nutrition [facility] DIABETES/NUTRITION [address] [place] [address] Rosie Vick, SHANICE [address] [place] [address] documented as of this encounter Visit Diagnoses Not on filedocumented in this encounter Additional Health Concerns Assessment Noted Time PHQ-9 Depression Total Score: 0 05/30/19 23 3:26 PM EDT documented as of this encounter Care Teams Pre K Teacher Relationship Specialty Start Date End Date Maddie Kim MD 230 [place] [address] PCP - General Family Medicine 07/12/20 Willie Gage 01/17/22 documented as of this encounter
--- OUTSIDE RECORDS SUMMARY | 2024-04-02 15:26 | XMS_ITS | Encounter Summary ---
Author Organization [employer] Address [address] [facility] 7t [place] [address] Care Team Providers Care Retail Pharmacist Name Role Phone Maddie Kim MD Primary Care Provider [phone] Reason for Visit * Reason Comments Med Refill Encounter Details Date Type Department Care Team ([facility] st Contact Info) Description 04/05/[address] [facility] WALK-IN C[facility] [address] [place] [address] [phone] Isac Gonzalez MD [address] [place] [address] [phone] Chronic bilateral low back pain without sciatica [...] - 04/06/2023 12:46 PM EST TC to [facility] pharmacy, T3 RX written 03/29/23 for #45 [...] Info) Description 04/18/2024 9:[address] [facility] DIABETES/NUTRITION 230 [place] [address] [place] [address] documented as of this encounter Visit Diagnoses Diagnosis Chronic bilateral low back pain without sciatica documented in this encounter Additional Health Concerns Assessment Noted Time PHQ-9 Depression Total Score: 0 05/30/19 23 3:26 PM EDT documented as of this encounter Care Teams Retail Pharmacist Relationship Specialty Start Date End Date Maddie Kim MD 230 [place] [address] PCP - General Family Medicine 07/12/20 Willie Gage 01/17/22 documented as of this encounter
--- OUTSIDE RECORDS SUMMARY | 2024-04-02 15:26 | XMS_ITS | Encounter Summary ---
Author Organization [employer] Address [address] [facility] 7t [place] [address] Care Team Providers Care Material Checker Name Role Phone Maddie Kim MD Primary Care Provider [phone] Reason for Visit * Reason Onset Date Comments Nurse Triage 05/14/2023 Encounter Details Date Type Department Care Team ([facility] st Contact Info) Description 05/14/2023 Telephone [facility] MEDICINE 230 [place], [place] [phone] Maddie Kim MD 230 [place], [place] [phone] Nurse Triage Social History Tobacco Use Types [...] accepted this outcome Any questions to Destiny [phone] documented in this encounter Plan of Treatment Upcoming Encounters Date Type Department Care Team (Late st Contact Info) Description 04/18/2024 9:00 AM EST Nutrition [facility] DIABETES/NUTRITION 230 [place] [address] Rosie Vick, RD 230 [place] [address] documented as of this encounter Visit Diagnoses Not on filedocumented in this encounter Additional Health Concerns Assessment Noted Time PHQ-9 Depression Total Score: 0 05/30/19 23 3:26 PM EDT documented as of this encounter Care Teams Material Checker Relationship Specialty Start Date End Date Maddie Kim MD 230 [place] [address] PCP - General Family Medicine 07/12/20 Willie Gage 01/17/22 documented as of this encounter
--- OUTSIDE RECORDS SUMMARY | 2024-04-02 15:26 | XMS_ITS | Encounter Summary ---
Author Organization [employer] Address [address] [facility] 7t [place] [address] Care Team Providers Care Cardiology Clinical Consultant Name Role Phone Maddie Kim MD Primary Care Provider [phone] Reason for Visit * Reason Onset Date Comments Med Refill 02/14/2023 Encounter Details Date Type Department Care Team ([facility] Contact Info) Description 02/14/2023 Refill [facility] [address] [place] [address] [phone] Maddie Kim MD 230 [place], [place] [phone] Social History Tobacco Use Types Packs/Day Years [...] Info) Description 04/18/2024 9:00 AM EST Nutrition [facility] DIABETES/NUTRITION [address] [place] [address] [place] [address] documented as of this encounter Visit Diagnoses Not on filedocumented in this encounter Additional Health Concerns Assessment Noted Time PHQ-9 Depression Total Score: 0 05/30/19 23 3:26 PM EDT documented as of this encounter Care Teams Cardiology Clinical Consultant Relationship Specialty Start Date End Date Maddie Kim MD [address] [place] [address] PCP - General Family Medicine 07/12/20 Willie Gage 01/17/22 documented as of this encounter
--- OUTSIDE RECORDS SUMMARY | 2024-04-02 15:26 | XMS_ITS | Encounter Summary ---
Author Organization [employer] Address [address] [facility] 7t [place] [address] Care Team Providers Care Health Coach Name Role Phone Maddie Kim MD Primary Care Provider [phone] Reason for Visit * Reason Onset Date Comments Med Refill 05/10/2023 Encounter Details Date Type Department Care Team ([facility] st Contact Info) Description 05/10/[address] [facility] MEDICINE 230 [place], [place] [phone] Maddie Kim MD 230 [place], [place] [phone] Chronic bilateral low back pain without sciatica [...] 04/18/2024 9:00 AM EST Nutrition [facility] DIABETES/NUTRITION [address] [place] [address] [place] [address] documented as of this encounter Visit Diagnoses Diagnosis Chronic bilateral low back pain without sciatica documented in this encounter Additional Health Concerns Assessment Noted Time PHQ-9 Depression Total Score: 0 05/30/19 23 3:26 PM EDT documented as of this encounter Care Teams Health Coach Relationship Specialty Start Date End Date Maddie Kim MD [address] [place] [address] PCP - General Family Medicine 07/12/20 Willie Gage 01/17/22 documented as of this encounter
--- OUTSIDE RECORDS SUMMARY | 2024-04-02 15:26 | XMS_ITS | Encounter Summary ---
Author Organization [employer] Address [address] [place] [address] 7t [place] [address] Care Team Providers Care Air Pollution Analyst Name Role Phone Maddie Kim MD Primary Care Provider [phone] Reason for Visit * Reason Onset Date Comments NTTS 03/24/2024 Encounter Details Date Type Department Care Team ([facility] Contact Info) Description 03/24/[address] [facility] MEDICINE [address] [place], [place] [phone] Sheila Rene RN 230 [place] [address] NTTS Social History Tobacco Use Types Packs/Day [...] pain NTTS RN's advised patient to call [facility] in the AM for a consult. TC placed to patient [phone] who reports [facility] evaluated her on 03/22/24 and stated she does not have a UTI. Patient reports she was informed her pain is most likely related to her bladder mesh which was placed after her bladder lifting surgery in 2022. Patient also reports she is currently at a partial program and the provider ordered BW which patient completed on 03/21/24 via [facility] labs and her sodium returned low at [...] new appointment date and time. RN called [facility] [phone] to request visit note from 03/22/24 to be faxed to [phone]. RN also obtained [facility] labs from 03/21/24 and scanned into chart. documented in this encounter Plan of Treatment Upcoming Encounters Date Type Department Care Team (Late st Contact Info) Description 04/18/2024 9:00 AM EST Nutrition [facility] DIABETES/NUTRITION [address] [place] [address] Rosie Vick, SHANICE [address] [place] [address] documented as of this encounter Visit Diagnoses Not on filedocumented in this encounter Additional Health Concerns Assessment Noted Time PHQ-9 Depression Total Score: 3 06/15/19 24 11:48 AM EDT documented as of this encounter Care Teams Air Pollution Analyst Relationship Specialty Start Date End Date Maddie Kim MD 230 [place] [address] PCP - General Family Medicine 07/12/20 Willie Gage 01/17/22 documented as of this encounter
--- OUTSIDE RECORDS SUMMARY | 2024-04-02 15:26 | XMS_ITS | Encounter Summary ---
Author Organization [employer] Address [address] [facility] 7t [place] [address] Care Team Providers Care Molding Press Operator Name Role Phone Maddie Kim MD Primary Care Provider [phone] Reason for Visit * Reason Comments Med Refill Encounter Details Date Type Department Care Team ([facility] st Contact Info) Description 03/18/[address] [facility] WALK-IN CENTER [address] [place] [address] [phone] Maddie Kim MD [address] [place] [address] [phone] Social History Tobacco Use Types Packs/Day Years [...] 9:00 AM EST Nutrition [facility] DIABETES/NUTRITION [address] [place] [address] Rosie Vick, SHANICE [address] [place] [address] documented as of this encounter Visit Diagnoses Not on filedocumented in this encounter Additional Health Concerns Assessment Noted Time PHQ-9 Depression Total Score: 0 05/30/19 23 3:26 PM EDT documented as of this encounter Care Teams Molding Press Operator Relationship Specialty Start Date End Date Maddie Kim MD 230 [place] [address] PCP - General Family Medicine 07/12/20 Willie Gage 01/17/22 documented as of this encounter
--- OUTSIDE RECORDS SUMMARY | 2024-04-02 15:26 | XMS_ITS | Encounter Summary ---
Author Organization [employer] Address [address] [facility] 7t [place] [address] Care Team Providers Care Local Area Network Administrator Name Role Phone Maddie Kim MD Primary Care Provider [phone] Encounter Details Date Type Department Care Team ([facility] st Contact Info) Description 03/24/2024 Telephone [facility] MEDICINE [address] [place], [place] [phone] Maddie Kim MD [address] [place], [place] [phone] Social History Tobacco Use Types Packs/Day Years [...] Telephone Encounter - Sheila Rene RN - 03/26/2024 10:52 AM EST RN reviewed meditech, patient is currently admitted to [facility] d/t hypokalemia, hyperkalemia and hypotension. Patient admitted for electrolyte correction. Patient to f/u upon discharge for an HDF appointment. * Telephone Encounter - Sheila Rene RN - 03/25/2024 4:44 PM EST Noted. RN will leave scheduled appointment incase patient is discharged at PCP's request. * Telephone Encounter - Sheila Rene RN - 03/25/2024 3:54 PM EST Noted. * Telephone Encounter - Sheila Rene RN - 03/24/2024 3:29 PM EST TC placed to patient [phone] to inform patient, PCP would like patient to repeat BW tomorrow as per provider at [facility]. If sodium returns low again then [...] Name of Caller/Facility:Lauren Gage RN Callback number: [phone] Reason for Call: NA 125 Lauren RN reporting that Patient Sodium low at 125 [...] team nurses for follow up. High Priority Pax8 Chat Secure Message also sent to Red Team Nurses. documented in this encounter Plan of Treatment Upcoming Encounters Date Type Department Care Team (Late st Contact Info) Description 04/18/2024 9:00 AM EST Nutrition [facility] DIABETES/NUTRITION [address] [place] [address] Rosie Vick, SHANICE [address] [place] [address] documented as of this encounter Visit Diagnoses Not on filedocumented in this encounter Additional Health Concerns Assessment Noted Time PHQ-9 Depression Total Score: 3 06/15/19 24 11:48 AM EDT documented as of this encounter Care Teams Local Area Network Administrator Relationship Specialty Start Date End Date Maddie Kim MD 230 [place] [address] PCP - General Family Medicine 07/12/20 Willie Gage 01/17/22 documented as of this encounter
== END 2024-04-01 12:16 | disposition home or self-care (01) ==
LOC: HO.LNP 12:15
PROVIDERS: Visit Provider Psychiatry & Neurology Psychiatry
DX: F31.32 Bipolar disorder, current episode depressed, moderate (principal); F11.11 Opioid abuse, in remission; F14.11 Cocaine abuse, in remission
CPT/HCPCS: 80307

== ENCOUNTER 2024-04-02 16:23 | Outpatient (REF) | payer OTHER, SELFPAY ==
--- OUTSIDE RECORDS SUMMARY | 2024-04-02 16:41 | XMS_ITS | Encounter Summary ---
Author Organization [employer] Address [address] [facility] 7t [place] [address] Care Team Providers Care Gun Repair Clerk Name Role Phone Maddie Kim MD Primary Care Provider Encounter Details Date Type Department Care Team ([facility] st Contact Info) Description 07/29/2023 Orders Only [facility] MEDICINE [address] [place], [place] [phone] Maddie Kim MD [address] [place], [place] [phone] Social History Tobacco Use Types Packs/Day Years [...] Info) Description 04/18/2024 9:00 AM EST Nutrition [facility] DIABETES/NUTRITION 230 [place] [address] [place] [address] documented as of this encounter Visit Diagnoses Not on filedocumented in this encounter Additional Health Concerns Assessment Noted Time PHQ-9 Depression Total Score: 3 06/15/19 24 11:48 AM EDT documented as of this encounter Care Teams Gun Repair Clerk Relationship Specialty Start Date End Date Maddie Kim MD 230 [place] [address] PCP - General Family Medicine 07/12/20 Willie Gage 01/17/22 documented as of this encounter
--- OUTSIDE RECORDS SUMMARY | 2024-04-02 16:41 | XMS_ITS | Encounter Summary ---
Author Organization [employer] Address 75 [facility] 7t [place] [address] Care Team Providers Care Medical Coding Auditor Name Role Phone Maddie Kim MD Primary Care Provider [phone] Encounter Details Date Type Department Care Team ([facility] st Contact Info) Description 05/15/2023 Orders Only [facility] MEDICINE [address] [place], [place] [phone] Maddie Kim MD [address] [place], [place] [phone] Social History Tobacco Use Types Packs/Day Years [...] 04/18/2024 9:00 AM EST Nutrition [facility] DIABETES/NUTRITION [address] [place] [address] [place] [address] documented as of this encounter Visit Diagnoses Not on filedocumented in this encounter Additional Health Concerns Assessment Noted Time PHQ-9 Depression Total Score: 0 05/30/19 23 3:26 PM EDT documented as of this encounter Care Teams Medical Coding Auditor Relationship Specialty Start Date End Date Maddie Kim MD 230 [place] [address] PCP - General Family Medicine 07/12/20 Willie Gage 01/17/22 documented as of this encounter
--- OUTSIDE RECORDS SUMMARY | 2024-04-02 16:41 | XMS_ITS | Encounter Summary ---
Author Organization [employer] Address [address] [facility] 7t [place] [address] Care Team Providers Care Panel Fitter Name Role Phone Maddie Kim MD Primary Care Provider [phone] Reason for Visit * Reason Onset Date Comments NUTRITION APPT REQUEST 03/20/2024 Encounter Details Date Type Department Care Team ([facility] Contact Info) Description 03/20/2024 Telephone [facility] MEDICINE [address] [place] [address] [place], [place] [phone] NUTRITION APPT REQUEST Social History Tobacco Use [...] Info) Description 04/18/2024 9:00 AM EST Nutrition [facility] DIABETES/NUTRITION [address] [place] [address] [place] [address] documented as of this encounter Visit Diagnoses Not on filedocumented in this encounter Additional Health Concerns Assessment Noted Time PHQ-9 Depression Total Score: 3 06/15/19 24 11:48 AM EDT documented as of this encounter Care Teams Panel Fitter Relationship Specialty Start Date End Date Maddie Kim MD 230 [place] [address] PCP - General Family Medicine 07/12/20 Willie Gage 01/17/22 documented as of this encounter
--- OUTSIDE RECORDS SUMMARY | 2024-04-02 16:41 | XMS_ITS | Encounter Summary ---
Author Organization [employer] Address 75 [facility] 7t [place] [address] Care Team Providers Care Log Rafter Name Role Phone Maddie Kim MD Primary Care Provider [phone] Encounter Details Date Type Department Care Team (Latest Contact Info) Description 04/02/2024 Travel Social History Tobacco Use Types Packs/Day Years [...] Info) Description 04/18/2024 9:00 AM EST Nutrition [facility] DIABETES/NUTRITION 230 [place] [address] [place] [address] documented as of this encounter Visit Diagnoses Not on filedocumented in this encounter Additional Health Concerns Assessment Noted Time PHQ-9 Depression Total Score: 3 06/15/19 24 11:48 AM EDT documented as of this encounter Care Teams Log Rafter Relationship Specialty Start Date End Date Maddie Kim MD [address] [place] [address] PCP - General Family Medicine 07/12/20 Willie Gage 01/17/22 documented as of this encounter
--- OUTSIDE RECORDS SUMMARY | 2024-04-02 16:41 | XMS_ITS | Encounter Summary ---
Author Organization [employer] Address [address] [place] [address] 7t [place] [address] Care Team Providers Care Test Department Helper Name Role Phone Maddie Kim MD Primary Care Provider [phone] Reason for Visit * Reason Onset Date Comments c/b request 11/10/2022 Encounter Details Date Type Department Care Team ([facility] st Contact Info) Description 11/10/2022 Telephone [facility] MEDICINE [address] [place] [address] [phone] Maddie Kim MD 230 [place], [place] [phone] c/b request Social History Tobacco Use Types [...] to medication reconciliation. Please contact [employer] at [phone] documented in this encounter Plan of Treatment Upcoming Encounters Date Type Department Care Team (Late st Contact Info) Description 04/18/2024 9:00 AM EST Nutrition [facility] DIABETES/NUTRITION [address] [place], [place] [phone] Rosie Vick [address] [place] [address] documented as of this encounter Visit Diagnoses Diagnosis Gastroesophageal reflux disease without esophagitis Esophageal reflux documented in this encounter Additional Health Concerns Assessment Noted Time PHQ-9 Depression Total Score: 0 05/30/19 23 3:26 PM EDT documented as of this encounter Care Teams Test Department Helper Relationship Specialty Start Date End Date Maddie Kim MD 230 [place] [address] PCP - General Family Medicine 07/12/20 Willie Gage 01/17/22 documented as of this encounter
--- OUTSIDE RECORDS SUMMARY | 2024-04-02 16:41 | XMS_ITS | Encounter Summary ---
Author Organization [employer] Address [address] [facility] 7t [place] [address] Care Team Providers Care Rate And Cost Analyst Name Role Phone Maddie Kim MD Primary Care Provider Reason for Visit * Reason Onset Date Comments verbal order 03/04/2024 Encounter Details Date Type Department Care Team ([facility] Contact Info) Description 03/04/2024 Telephone [facility] MEDICINE 230 [place], [place] [phone] Maddie Kim MD 230 [place], [place] [phone] verbal order Social History Tobacco Use Types [...] 03/04/2024 2:28 PM EST Tc to [facility] Caring requesting verbal order to continue [...] Info) Description 04/18/2024 9:00 AM EST Nutrition [facility] DIABETES/NUTRITION 230 [place], [place] [phone] Rosie Vick RD 230 [place], [place] [phone] documented as of this encounter Visit Diagnoses Not on filedocumented in this encounter Additional Health Concerns Assessment Noted Time PHQ-9 Depression Total Score: 3 06/15/19 24 11:48 AM EDT documented as of this encounter Care Teams Rate And Cost Analyst Relationship Specialty Start Date End Date Maddie Kim MD [address] [place] [address] PCP - General Family Medicine 07/12/20 Willie Gage 01/17/22 documented as of this encounter
--- OUTSIDE RECORDS SUMMARY | 2024-04-02 16:41 | XMS_ITS | Encounter Summary ---
Author Organization [employer] Address 75 [facility] 7t [place] [address] Care Team Providers Care Test Hole Driller Name Role Phone Maddie Kim MD Primary Care Provider [phone] Encounter Details Date Type Department Care Team ([facility] st Contact Info) Description 01/02/2024 Orders Only [facility] MEDICINE [address] [place], [place] [phone] Maddie Kim MD [address] [place], [place] [phone] Social History Tobacco Use Types Packs/Day Years [...] [facility] DIABETES/NUTRITION 230 [place] [address] [place] [address] documented as of this encounter Visit Diagnoses Not on filedocumented in this encounter Additional Health Concerns Assessment Noted Time PHQ-9 Depression Total Score: 3 06/15/19 24 11:48 AM EDT documented as of this encounter Care Teams Test Hole Driller Relationship Specialty Start Date End Date Maddie Kim MD 230 [place] [address] PCP - General Family Medicine 07/12/20 Willie Gage 01/17/22 documented as of this encounter
--- OUTSIDE RECORDS SUMMARY | 2024-04-02 16:41 | XMS_ITS | Encounter Summary ---
Author Organization [employer] Address [address] [place] [address] 7t [place] [address] Care Team Providers Care Gas Engine Performance Engineer Name Role Phone Maddie Kim MD Primary Care Provider [phone] Encounter Details Date Type Department Care Team ([facility] Contact Info) Description 03/30/2022 Abstract [facility] MEDICINE 230 [place], [place] [phone] Maddie Kim MD [address] [place], [place] [phone] Social History Tobacco Use Types Packs/Day Years [...] Nutrition [facility] DIABETES/NUTRITION [address] [place] [address] [place] [address] documented as of this encounter Visit Diagnoses Not on filedocumented in this encounter Care Teams Gas Engine Performance Engineer Relationship Specialty Start Date End Date Maddie Kim MD [address] [place] [address] PCP - General Family Medicine 07/12/20 Willie Gage 01/17/22 documented as of this encounter
--- OUTSIDE RECORDS SUMMARY | 2024-04-02 16:41 | XMS_ITS | Encounter Summary ---
Author Organization [employer] Address [address] [place] [address] 7t [place] [address] Care Team Providers Care Geologic Technician Name Role Phone Maddie Kim MD Primary Care Provider [phone] Reason for Visit * Reason Onset Date Comments Durable Medical Equipment 03/02/2022 Encounter Details Date Type Department Care Team ([facility] st Contact Info) Description 03/02/2022 Telephone [facility] MEDICINE [address] [place] [address] Shayna Pritchett, MAJO Durable Medical Equipment Social [...] send to [facility] Please contact pt at [phone] documented in this encounter Plan of Treatment Upcoming Encounters Date Type Department Care Team (Late st Contact Info) Description 04/18/2024 9:00 AM EST Nutrition [facility] DIABETES/NUTRITION [address] [place] [address] [place] [address] documented as of this encounter Visit Diagnoses Not on filedocumented in this encounter Care Teams Geologic Technician Relationship Specialty Start Date End Date Maddie Kim MD [address] [place] [address] PCP - General Family Medicine 07/12/20 Willie Gage 01/17/22 documented as of this encounter
--- OUTSIDE RECORDS SUMMARY | 2024-04-02 16:41 | XMS_ITS | Encounter Summary ---
Author Organization [employer] Address [address] [place] [address] 7t [place] [address] Care Team Providers Care Business Trainer Name Role Phone Maddie Kim MD Primary Care Provider [phone] Encounter Details Date Type Department Care Team (Late Contact Info) Description 11/14/2022 Orders Only [facility] MEDICINE 230 [place], [place] [phone] Maddie Kim MD 230 [place], [place] [phone] Social History Tobacco Use Types Packs/Day Years [...] AM EST Nutrition [facility] DIABETES/NUTRITION 230 [place], [place] [phone] Rosie Vick RD [address] [place], [place] [phone] documented as of this encounter Visit Diagnoses Not on filedocumented in this encounter Additional Health Concerns Assessment Noted Time PHQ-9 Depression Total Score: 0 05/30/19 23 3:26 PM EDT documented as of this encounter Care Teams Business Trainer Relationship Specialty Start Date End Date Maddie Kim MD 230 [place] [address] PCP - General Family Medicine 07/12/20 Willie Gage 01/17/22 documented as of this encounter
--- OUTSIDE RECORDS SUMMARY | 2024-04-02 16:41 | XMS_ITS | Encounter Summary ---
Author Organization [employer] Address 75 [facility] 7t [place] [address] Care Team Providers Care Steam Bone Press Tender Name Role Phone Maddie Kim MD Primary Care Provider [phone] Reason for Visit * Reason Onset Date Comments Med Refill 03/04/2024 Encounter Details Date Type Department Care Team ([facility] Contact Info) Description 03/04/2024 Refill [facility] MEDICINE [address] [place], [place] [phone] Maddie Kim MD [address] [place], [place] [phone] Social History Tobacco Use Types Packs/Day Years [...] 100 MG capsule To be sent to: [facility] [address] [place] [address]. documented in this encounter Plan of Treatment Upcoming Encounters Date Type Department Care Team (Late st Contact Info) Description 04/18/2024 9:00 AM EST Nutrition [facility] DIABETES/NUTRITION [address] [place] [address] [place] [address] documented as of this encounter Visit Diagnoses Not on filedocumented in this encounter Additional Health Concerns Assessment Noted Time PHQ-9 Depression Total Score: 3 06/15/19 24 11:48 AM EDT documented as of this encounter Care Teams Steam Bone Press Tender Relationship Specialty Start Date End Date Maddie Kim MD [address] [place] [address] PCP - General Family Medicine 07/12/20 Willie Gage 01/17/22 documented as of this encounter
--- OUTSIDE RECORDS SUMMARY | 2024-04-02 16:41 | XMS_ITS | Encounter Summary ---
Author Organization [employer] Address [address] [facility] 7t [place] [address] Care Team Providers Care Outside Barrel Lathe Operator Name Role Phone Maddie Kim MD Primary Care Provider [phone] Reason for Visit * Reason Onset Date Comments Durable Medical Equipment 03/16/2022 Encounter Details Date Type Department Care Team ([facility] st Contact Info) Description 03/16/2022 Telephone [facility] MEDICINE 230 [place], [place] [phone] Maddie Kim MD [address] [place], [place] [phone] Durable Medical Equipment Social History Tobacco Use [...] it can fax to her landlord at [phone]. She would like the script to be to the [facility] [employer] [place], [address] [place] [address] If any concerns please contact pt at [phone] documented in this encounter Plan of Treatment Upcoming Encounters Date Type Department Care Team ([facility] st Contact Info) Description 04/18/2024 9:00 AM EST Nutrition [facility] DIABETES/NUTRITION [address] [place] [address] [place] [address] documented as of this encounter Visit Diagnoses Not on filedocumented in this encounter Care Teams Outside Barrel Lathe Operator Relationship Specialty Start Date End Date Maddie Kim MD [address] [place] [address] PCP - General Family Medicine 07/12/20 Willie Gage 01/17/22 documented as of this encounter
--- OUTSIDE RECORDS SUMMARY | 2024-04-02 16:41 | XMS_ITS | Encounter Summary ---
Author Organization [employer] Address [address] [place] [address] 7t [place] [address] Care Team Providers Care Printed Circuit Boards Beveler Name Role Phone Maddie Kim MD Primary Care Provider [phone] Encounter Details Date Type Department Care Team (Late Contact Info) Description 01/27/2022 Telephone [facility] MEDICINE [address] [place] [address] Maddie Kim MD [address] [place] [address] Social History Tobacco Use Types Packs/Day Years [...] AM EST Nutrition [facility] DIABETES/NUTRITION [address] [place] [address] Rosie Vick, SHANICE [address] [place] [address] documented as of this encounter Visit Diagnoses Not on filedocumented in this encounter Care Teams Printed Circuit Boards Beveler Relationship Specialty Start Date End Date Maddie Kim MD [address] [place] [address] PCP - General Family Medicine 07/12/20 Willie Gage 01/17/22 documented as of this encounter
--- OUTSIDE RECORDS SUMMARY | 2024-04-02 16:41 | XMS_ITS | Clinical Summary ---
Author Organization [email or web address] Address [address] [place] [address] 7t [place] [address] Care Team Providers Care Actuarial Internship Name Role Phone Maddie Kim MD Primary Care Provider [phone] Allergies Active Allergy Reactions Criticality Noted Date [...] day and 2 tabs at bedtime 03/17/19 25 Active QUEtiapine (SEROquel) 50 MG tablet Take 1 tablet by mouth at bedtime. And 1 tab once daily as needed 03/25/19 25 Active topiramate 50 MG tablet Take 1 tablet by mouth Once per day. 03/17/19 25 Active nicotine (Nicoderm, Step 1) 21 MG/24HR [...] 8 ounces of water or juice. Active nitrofurantoin (Macrodantin) 100 MG capsule 03/31/19 25 Active Tirzepatide-We ight Management (Zepbound) 2.5 MG/0.5ML solution auto-injector Inject 0.5 mL (2.5 mg) under the skin 1 (one) time per week. 2 mL 3 04/02/19 25 Active gabapentin (Neurontin) 300 MG capsuleIndicat ions:Chronic [...] (02/23/2023 8:52 AM EST): Will refer to [facility] hand surgeon History of gastrectomy 10/06/2022 Assessment & Plan (04/02/2024 4:07 PM EST): 2009 gastric sleeve Assessment & Plan (10/06/2022 7:52 AM EDT): Refer to [facility] weight loss program for discussion of [...] tel enc 05/18/14 See tel enc 05/18/14 Class 3 severe obesity with serious comorbidity and body mass index (BMI) of 40.0 to 44.9 in adult, unspecified obesity type 03/26/2014 Assessment & Plan (05/31/2022 10:05 AM EDT): Referral to nutrition She is s/p gastric sleeve? I think discuss portion sizes with diesel tractor operator Assessment & Plan (01/29/2022 10:40 AM [...] Assessment & Plan (05/17/2023 3:51 PM EDT): [facility] paperwork/[place] paperwork signed She has support system in place for during this time, re-iterated that she can reach us through [facility] if she needs anything Assessment & Plan [...] Problem Noted Date Diagnosed Date Resolved Date Diabetes due to undrl condit ion w oth diabetic neuro comp 04/02/2024 04/02/2024 Allergy 01/27/2022 10/11/2023 Overview (01/27/2022): pcn,dilaudid Alcohol use disorder, moderate, dependence 09/06/2020 02/20/2023 Assessment & Plan (10/06/2022 7:51 AM EDT): In early remission Encounters Date Type Department Care Team Description 04/02/2024 3:30 PM EST Office Visit [facility] [address] [place] [address]84 Maddie Kim MD Schizoaffective disorder, bipolar type (CMS/HCC) (Primary Dx); Opioid abuse (CMS/HCC); Class 3 severe obesity with serious comorbidity and body mass index (BMI) of 40.0 to 44.9 in adult, unspecified obesity type (CMS/HCC); Dietary counseling; Exercise counseling; History of gastrectomy 04/02/2024 Travel 04/02/2024 Telephone [facility] [address] [place] [address] 16662 Maddie Kim MD No Show 03/31/2024 Telephone [facility] [address] [place] [address] 27983 Maddie Kim MD Call Back Request 03/28/2024 Telephone [facility] [address] [place] [address] 40556 Maddie Kim MD FYI 03/28/2024 Patient Outreach [facility] [address] [place] [address] 07689 Maddie Kim MD Transition Of Care (Tcm) (HDF- Unscheduled- PATIENT REQ. A HDF WITHIN 7 DAYS AND ONLY WITH HER PCP) 03/28/2024 Telephone [facility]INE [address] [place] [address] 59812 Maddie Kim MD Hospital Follow-up 03/24/2024 Telephone [facility] [address] [place] [address] 92806 Maddie Kim MD 03/24/2024 Telephone [facility] [address] [place] [address] 66428 Sheila Rene, RN NTTS 03/20/2024 Telephone [facility] [address] [place] [address] NUTRITION APPT REQUEST 03/04/2024 Telephone [facility] [address] [place] [address] 08948 Maddie Kim MD verbal order 03/04/2024 Refill [facility] [address] [place] [address] 21886 Maddie Kim MD 02/22/2024 Telephone [facility]INE [address] [place] [address], [place] [address] Maddie Kim MD 02/22/2024 Orders Only [facility] [address] [facility] [place] [address] Maddie Kim MD 02/21/2024 Telephone [facility] [address] [facility] [place] [address] Maddie Kim MD FYI 02/21/2024 Refill [facility] [address] [facility] [place] [address] Maddie Kim MD 02/15/2024 Telephone [facility]INE [address] [place] [address] Maddie Kim MD FYI 02/15/2024 Refill [facility] [address] [facility] [place] [address] Maddie Kim MD 01/22/2024 Orders Only GENERIC EXTERNAL DATA DEPARTMENT Provider, Generic External Data 01/04/2024 2:20 PM EST Office Visit [facility] WALK-IN CENTER [address] [place] [address] Amanda Pimentel MD Hypertensive urgency (Primary Dx) 01/04/2024 Telephone [facility]INE [address] [place] [address] 40452 Maddie Kim MD verbal order 01/04/2024 Telephone [facility] [address] [place] [address] 10384 Bonita Fuentes, MAJO WIC triage 01/04/2024 Travel 01/04/2024 Telephone [facility] [address] [place] [address] 00188 Maddie Kim MD Results 01/02/2024 Orders Only [facility] [place] [address] Maddie Kim MD 01/02/2024 Telephone [facility] [address] [place] [address] 79327 Maddie Kim MD Medication Question from Last [...] Sign Reading Time Taken Comments Blood Pressure 131/76 04/02/2024 3:33 PM EST Pulse 98 04/02/2024 3:33 PM EST Temperature 36.4 ??C (97.6 ??F) 04/02/2024 3:33 PM ES T Respiratory Rate 19 04/02/2024 3:33 PM EST Oxygen Saturation 100% 04/02/2024 3:33 PM EST Inhaled Oxygen Concentration - - Weight 109 kg (240 lb) 04/02/2024 3:33 PM EST Height 157.5 cm (5' 2 ) 04/02/2024 3:33 PM EST Body Mass Index 43.9 04/02/2024 3:33 PM EST Plan of Treatment Upcoming Encounters Date Type Department Care Team (Late st Contact Info) Description 04/18/2024 9:00 AM EST Nutrition [facility] DIABETES/NUTRITION [address] [place] [address] Rosie Vick, RD [address] [place] [address] Health Maintenance Due Date Last Done Comments CT Colonography 1975 Colonoscopy 1977 Colorectal Cancer Screening 1975 FIT DNA/Cologuard 1977 FIT 1975 FOBT 1975 HIV Screening 1975 Sigmoidoscopy 1977 Alcohol/Substance Use Screening 1989 Hepatitis C Screening 10/03/1995 Hepatitis A Vaccines (1 of 2 - Risk 2-dose series) 1996 Hepatitis B Vaccines (1 of 3 - 19+ 3-dose series) 1996 DTaP/Tdap/Td Vaccines (3 - Td or Tdap) 09/19/2020 09/19/2010, 10/12/2009 COVID-19 Vaccine ( season) 2023 12/26/2021, 08/26/2020, 07/29/2020 Depression Screening 06/14/2024 06/15/2023, 06/15/19 24 SDOH Screening 07/05/2024 07/06/2023 Family Planning (PISQ) 04/02/2025 04/02/2024 Tobacco Screening 04/02/2025 04/02/2024 Mammogram 05/03/2025 05/04/2023, 03/23, 02/28/2022 HPV/Cotest 12/20/2025 [...] 8:03 AM EST 01/23/2024 11:00 AM EST [facility] - 01/25/2024 12:58 PM EST ----- ------- Name: Atiya Esparza ?Age/Sex: 48/F ? : 1975 Unit#: [id number] ?? Attend Dr: John Schmidt MD ?Re01/22/24 ?Status: DEP REF ? Location: HO.LNP ?Disch: ? ----- ------- SPEC : [id number] ?RECD: 01/23/24-1099 ? STATUS: ??SOUT ? REQ NUM: [id number] ? MAMADOU: 01/22/24 ? SUBM DR: John [...] Copies To: ?? Maddie Kim ?? [address] ?? [place] [address] ?? [phone] ?? John Schmidt MD ?? [facility] ?? [address] [place] [address] [address] ?? [place] [address] ?? [phone] ----- ------- Signed (signature on file) YASSINE Garcia ([facility]) 01/25/24 1258 ? ----- ------- ? END OF REPORT ? us Generic External Data Provider LAB CYTOLOGY HARJEET AVALOS Final Result [facility] [address] [place] [address] [phone] * Lipid Panel, Standard (09/08/2023 8:43 AM EDT) Triglycerides 57 <150 mg/dL [facility] Comment:Desirable Triglyceri de: less than 150 mg/dLBorderline High Triglyceride 150-199 mg/dLHigh Triglyceride: 200-499 mg/dLVery High Triglyceride: greater than or equal to 5OO mg/dL Cholesterol 158 <200 mg/dL [facility] Comment:Desirable Cholestero l: less than 200 mg/dLBorderline High Cholesterol: 200-239 mg/dLHigh Cholesterol: greater than 239 mg/dL LDL Cholesterol Calculated 87 <100 mg/dL [facility] Comment:Desirable LDL: less than 100 mg/dLNear Optimal/Above Optimal LDL: 110- 129 mg/dLBorderline High LDL: 130-159 mg/dLHigh LDL: 160-189 mg/dLVery High LDL: greater than or equal to 190 mg/dL HDL Cholesterol 60 >40 mg/dL [facility] Comment:Desirable HDL: great er than 40 mg/dL Note: This HDL assay may give artificially low results in patients with liver disease. Blood Venous blood specimen / Unknown 09/08/2023 8:43 AM EDT 09/08/2023 11:09 AM EDT us Maddie Kim MD LAB BLOOD ORDERABLES Final Res ult [facility] [address] [place] [address] [phone] * BI Mammogram Screening Tomosynthesis Bilateral (05/04/2023 4:02 PM EDT) Anatomical Region Laterality Modality Breast Bilateral Mammography 05/04/2023 4:02 PM EDT Narrative 05/26/2023 3:06 PM EDT ? [facility] [place] ? [address] ?[place] [address] ? Mammography Report ? Signed ? Patient: Isaias,Atiya ?MR#: [id number] ? : 1975 ?Acct:[id number] ? Age/Sex: 47 / F ?ADM Date: /15/24 ? Loc: HO.MAMMO ? Attending Dr: Maddie Kim MD ? Ordering Physician: Maddie Kim ?Results: 1Negative ? Date of Service: /15/24 ?Follow Up: 1 Year From Orig ?? inal Mammogram ? Procedure(s): MM tomosynthesis screening BI ?? Accession Number(s): [id number] ? cc: Maddie Kim ? EXAMINATION: ?? [...] 1503 ? DD/ 1602 ? TD/TT: ? Nail Feeder: ? Procedure Note John Paul, Zoya - 05/26/2023 [facility] [address] [place] [address] Mammography Report Signed Patient: Carolyn EsparzaElke#: [id number] : 1975Acct:[id number] Age/Sex: 47 / FADM Date: 05/04/23 Loc: MICHAEL Attending Dr: Maddie Kim MD Ordering Physician: Jaja Kmiults: 1Negative Date of Service: 05/04/23Follow Up: 1 Year From [facility] ina Mammogram Procedure(s): MM tomosynthesis screening BI Accession Number(s): [id number] cc: Maddie Kim EXAMINATION: MM SCREENING DIGITAL [...] in OV> 05/26/23 1503 DD/ 1602 TD/TT: Nail Feeder: Maddie Kim MD [facility] BI PROCEDURES Final Result * HPV GENOTYPES 16,18/45 (12/20/2020 12:00 AM EDT) HPV 16 RNA NOT DETECTED NOT DETECTED [facility] HPV 18/45 RNA NOT DETECTED NOT DETECTED [facility] Comment: Methodology: Cable Television Access Coordinator Mediated Amplification The analytical performance characteristics of this assay have been determined by [employer]. The modifications have not been cleared or approved by the FDA. This assay has been validated pursuant to the CLIA regulations and is used for clinical purposes. 12/20/2020 Maddie Kim MD LAB BLOOD ORDERABLES Final Res ult [facility] [address] from Last 3 Months or Most Recently Relevant to Health Maintenance [place] [address] [place] [address] - [employer] Care Teams Actuarial Internship Relationship Specialty Start Date End Date Maddie Kim MD [address] [place] [address] PCP - General Family Medicine 07/12/20 Willie Caring 01/17/22
--- OUTSIDE RECORDS SUMMARY | 2024-04-02 16:41 | XMS_ITS | Encounter Summary ---
Author Organization [employer] Address [address] [place] [address] 7t [place] [address] Care Team Providers Care Semiconductor Wafers Etcher Stripper Name Role Phone Maddie Kim MD Primary Care Provider [phone] Encounter Details Date Type Department Care Team ([facility] Contact Info) Description 07/05/2022 Orders Only [facility] MEDICINE [address] [place], [place] [phone] Maddie Kim MD [address] [place], [place] [phone] Social History Tobacco Use Types Packs/Day Years [...] 04/18/2024 9:00 AM EST Nutrition [facility] DIABETES/NUTRITION [address] [place], [place] [phone] Rosie Vick [address] [place], [place] [phone] documented as of this encounter Visit Diagnoses Not on filedocumented in this encounter Additional Health Concerns Assessment Noted Time PHQ-9 Depression Total Score: 0 05/30/19 23 3:26 PM EDT documented as of this encounter Care Teams Semiconductor Wafers Etcher Stripper Relationship Specialty Start Date End Date Maddie Kim MD [address] [place] [address] PCP - General Family Medicine 07/12/20 Willie Gage 01/17/22 documented as of this encounter
--- OUTSIDE RECORDS SUMMARY | 2024-04-02 16:41 | XMS_ITS | Encounter Summary ---
Author Organization [employer] Address [address] [facility] 7t [place] [address] Care Team Providers Care Medical Administrative Specialist Name Role Phone Maddie Kim MD Primary Care Provider [phone] Reason for Visit * Reason Onset Date Comments Call Back Request 07/26/2023 Encounter Details Date Type Department Care Team ([facility] Contact Info) Description 07/26/2023 Telephone [facility] MEDICINE [address] [place] [address] Maddie Kim MD [address] [place], [place] [phone] Call Back Request Social History Tobacco Use [...] 07/27/2023 9:31 AM EDT Tc returned to [place], questioning pt.'s risperidone inj rx on med list they received. Looking back in chart, this was discontinued after inpatient hosp in 2020 due to noncompliance with injections. This was the last time it was prescribed. [facility] for accuracy, thank you! * Telephone Encounter - Zach Carlson - 07/26/2023 4:12 PM EDT Tc from [place] with Willie Gage requesting a call back for a med reconciliation. Please contact Georgie at [phone]. documented in this encounter Plan of Treatment Upcoming Encounters Date Type Department Care Team (Late st Contact Info) Description 04/18/2024 9:00 AM EST Nutrition [facility] DIABETES/NUTRITION [address] [place], [place] [phone] Rosie Vick, RD [address] [place], [place] [phone] documented as of this encounter Visit Diagnoses Not on filedocumented in this encounter Additional Health Concerns Assessment Noted Time PHQ-9 Depression Total Score: 3 06/15/19 24 11:48 AM EDT documented as of this encounter Care Teams Medical Administrative Specialist Relationship Specialty Start Date End Date Maddie Kim MD [address] [place] [address] PCP - General Family Medicine 07/12/20 Willie Gage 01/17/22 documented as of this encounter
--- OUTSIDE RECORDS SUMMARY | 2024-04-02 16:41 | XMS_ITS | Encounter Summary ---
Author Organization [email or web address] Address [address] [place] [address] 7t [place] [address] Care Team Providers Care Clinical Cytogeneticist Name Role Phone Maddie Kim MD Primary Care Provider [phone] Reason for Visit * Reason Onset Date Comments FYI 02/15/2024 Encounter Details Date Type Department Care Team ([facility] Contact Info) Description 02/15/2024 Telephone [facility] MEDICINE [address] [place], [place] [phone] Maddie Kim MD 230 [place], [place] [phone] FY Social History Tobacco Use Types Packs/Day [...] any questions you can contact Lauren at [phone]. documented in this encounter Plan of Treatment Upcoming Encounters Date Type Department Care Team (Late st Contact Info) Description 04/18/2024 9:00 AM EST Nutrition [facility] DIABETES/NUTRITION [address] [place] [address] [place] [address] documented as of this encounter Visit Diagnoses Not on filedocumented in this encounter Additional Health Concerns Assessment Noted Time PHQ-9 Depression Total Score: 3 06/15/19 24 11:48 AM EDT documented as of this encounter Care Teams Clinical Cytogeneticist Relationship Specialty Start Date End Date Maddie Kim MD [address] [place] [address] PCP - General Family Medicine 07/12/20 Willie Gage 11/29/22 documented as of this encounter
--- OUTSIDE RECORDS SUMMARY | 2024-04-02 16:41 | XMS_ITS | Encounter Summary ---
Author Organization [employer] Address [address] [place] [address] 7t [place] [address] Care Team Providers Care Senior Java Software Developer Name Role Phone Maddie Kim MD Primary Care Provider [phone] Encounter Details Date Type Department Care Team (Late Contact Info) Description 04/11/2022 Abstract [facility] MEDICINE [address] [place], [place] [phone] Maddie Kim MD 230 [place], [place] [phone] Social History Tobacco Use Types Packs/Day Years [...] Info) Description 04/18/2024 9:00 AM EST Nutrition [facility] DIABETES/NUTRITION [address] [place] [address] [place] [address] documented as of this encounter Visit Diagnoses Not on filedocumented in this encounter Care Teams Senior Java Software Developer Relationship Specialty Start Date End Date Maddie Kim MD [address] [place] [address] PCP - General Family Medicine 07/12/20 Willie Gage 01/17/22 documented as of this encounter
--- OUTSIDE RECORDS SUMMARY | 2024-04-02 16:41 | XMS_ITS | Encounter Summary ---
Author Organization [employer] Address [address] [facility] 7t [place] [address] Care Team Providers Care Manager Cleaning Name Role Phone Maddie Kim MD Primary Care Provider [phone] Encounter Details Date Type Department Care Team ([facility] st Contact Info) Description 06/13/2023 Orders Only [facility] MEDICINE [address] [place], [place] [phone] Maddie Kim MD [address] [place], [place] [phone] Social History Tobacco Use Types Packs/Day Years [...] 04/18/2024 9:00 AM EST Nutrition [facility] DIABETES/NUTRITION [address] [place] [address] [place] [address] documented as of this encounter Visit Diagnoses Not on filedocumented in this encounter Additional Health Concerns Assessment Noted Time PHQ-9 Depression Total Score: 0 05/30/19 23 3:26 PM EDT documented as of this encounter Care Teams Manager Cleaning Relationship Specialty Start Date End Date Maddie Kim MD [address] [place] [address] PCP - General Family Medicine 07/12/20 Willie Gage 01/17/22 documented as of this encounter
--- OUTSIDE RECORDS SUMMARY | 2024-04-02 16:41 | XMS_ITS | Encounter Summary ---
Author Organization [employer] Address [address] [facility] 7t [place] [address] Care Team Providers Care Salesman/Owner Name Role Phone Maddie Kim MD Primary Care Provider [phone] Encounter Details Date Type Department Care Team ([facility] st Contact Info) Description 02/22/2024 Orders Only [facility] MEDICINE [address] [place], [place] [phone] Maddie Kim MD [address] [place], [place] [phone] Social History Tobacco Use Types Packs/Day Years [...] [facility]ITION [address] [place] [address] [place] [address] documented as of this encounter Visit Diagnoses Not on filedocumented in this encounter Additional Health Concerns Assessment Noted Time PHQ-9 Depression Total Score: 3 06/15/19 24 11:48 AM EDT documented as of this encounter Care Teams Salesman/Owner Relationship Specialty Start Date End Date Maddie Kim MD [address] [place] [address] PCP - General Family Medicine 07/12/20 Willie Gage 01/17/22 documented as of this encounter
--- OUTSIDE RECORDS SUMMARY | 2024-04-02 16:41 | XMS_ITS | Encounter Summary ---
Author Organization [employer] Address [address] [facility] 7t [place] [address] Care Team Providers Care Apprentice Plant Attendant Name Role Phone Maddie Kim MD Primary Care Provider [phone] Reason for Visit * Reason Onset Date Comments Nutrition Medication Question 05/30/2023 Encounter Details Date Type Department Care Team ([facility] Contact Info) Description 05/30/[address] [facility] MEDICINE [address] [place], [place] [phone] Maddie Kim MD 230 [place], [place] [phone] Nutrition Medication Question Social History Tobacco Use [...] your housing situation today? I have salome benajmin 11/27/[address] you li [...] [facility] DIABETES/NUTRITION [address] [place] [address] [place] [address] documented as of this encounter Visit Diagnoses Not on filedocumented in this encounter Additional Health Concerns Assessment Noted Time PHQ-9 Depression Total Score: 0 05/30/19 23 3:26 PM EDT documented as of this encounter Care Teams Apprentice Plant Attendant Relationship Specialty Start Date End Date Maddie Kim MD 230 [place] [address] PCP - General Family Medicine 07/12/20 Willie Gage 01/17/22 documented as of this encounter
--- OUTSIDE RECORDS SUMMARY | 2024-04-02 16:41 | XMS_ITS | Encounter Summary ---
Author Organization [employer] Address [address] [place] [address] [address] [place] [address] Care Team Providers Care Special Needs Babysitter Name Role Phone Maddie Kim MD Primary Care Provider [phone] Reason for Visit * Reason Comments Follow-up Encounter Details Date Type Department Care Team (Latest Contact Info) Description 04/02/2024 3:30 PM EST Office Visit [facility] MEDICINE [address] [place], [place] [phone] Maddie Kim MD [address] [place], [place] [phone] Schizoaffective disorder, bipolar type (CMS/HCC) (Primary Dx); Opioid abuse (CMS/HCC); Class 3 severe obesity with serious comorbidity and body mass index (BMI) of 40.0 to 44.9 in adult, unspecified obesity type (CMS/HCC); Dietary counseling; Exercise counseling; History of gastrectomy Social History Tobacco Use Types Packs/Day Years [...] AM EDT documented as of this encounter Last Filed Vital Signs Vital Sign Reading [...] Mass Index 43.9 04/02/2024 3:33 PM EST documented in this encounter Miscellaneous Notes * Assessment & Plan Note - Maddie Kim MD - 04/02/2024 4:07 PM ESTAssociated Problem(s): 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 documented in this encounter Plan of Treatment Upcoming Encounters Date Type Department Care Team (Late st Contact Info) Description 04/18/2024 9:00 AM EST Nutrition [facility] DIABETES/NUTRITION [address] [place] [address] Rosie Vick, SHANICE [address] [place] [address] Scheduled Orders Name Type Priority Associated Diagnoses Orde r Schedule TSH W/Reflex to FT4 Lab Routine Class 3 severe obesity with serious comorbidity and body mass index (BMI) of 40.0 to 44.9 in adult, unspecified obesity type (CMS/HCC) Expected: 04/02/2024 (Approximate), Expires: 04/02/2025 CBC auto differential Lab Routine Class 3 severe obesity with serious comorbidity and body mass index (BMI) of 40.0 to 44.9 in adult, unspecified obesity type (CMS/HCC) Expected: 04/02/2024 (Approximate), Expires: 04/02/2025 documented as of this encounter Visit Diagnoses Diagnosis Schizoaffective disorder, bipolar type (CMS/HCC)- Primary Schizoaffective disorder, unspecified condition Opioid abuse (CMS/HCC) Nondependent opioid abuse, unspecified Class 3 severe obesity with serious comorbidity and body mass index (BMI) of 40.0 to 44.9 in adult, unspecified obesity type (CMS/HCC) Dietary counseling Dietary surveillance and counseling Exercise counseling History of gastrectomy Acquired absence of organ, stomach documented in this encounter Additional Health Concerns Assessment Noted Time PHQ-9 Depression Total Score: 3 06/15/19 24 11:48 AM EDT documented as of this encounter Care Teams Special Needs Babysitter Relationship Specialty Start Date End Date Maddie Kim MD [address] [place] [address] PCP - General Family Medicine 07/12/20 Willie Gage 01/17/22 documented as of this encounter
--- OUTSIDE RECORDS SUMMARY | 2024-04-02 16:42 | XMS_ITS | Encounter Summary ---
Author Organization [employer] Address [address] [facility] 7t [place] [address] Care Team Providers Care Machine Adjuster Leader Case Trim Name Role Phone Maddie Kim MD Primary Care Provider [phone] Reason for Visit * Reason Comments Med Refill Encounter Details Date Type Department Care Team ([facility] st Contact Info) Description 04/12/2023 Refill [facility] [address] [place] [address] [phone] Isac Gonzalez MD [address] [place], [place] [phone] Chronic bilateral low back pain without sciatica [...] Info) Description 04/18/2024 9:00 AM EST Nutrition [facility] DIABETES/NUTRITION [address] [place] [address] [place] [address] documented as of this encounter Visit Diagnoses Diagnosis Chronic bilateral low back pain without sciatica documented in this encounter Additional Health Concerns Assessment Noted Time PHQ-9 Depression Total Score: 0 05/30/19 23 3:26 PM EDT documented as of this encounter Care Teams Machine Adjuster Leader Case Trim Relationship Specialty Start Date End Date Maddie Kim MD [address] [place] [address] PCP - General Family Medicine 07/12/20 Willie Gage 01/17/22 documented as of this encounter
--- OUTSIDE RECORDS SUMMARY | 2024-04-02 16:42 | XMS_ITS | Encounter Summary ---
Author Organization [employer] Address [address] [facility] 7t [place] [address] Care Team Providers Care System Developer Associate Manager Name Role Phone Maddie Kim MD Primary Care Provider Reason for Visit * Reason Onset Date Comments Med Refill 04/04/2023 Encounter Details Date Type Department Care Team ([facility] st Contact Info) Description 04/04/2023 Refill [facility] [address] [place] [address] [phone] Isac Gonzalez MD [address] [place], [place] [phone] Chronic bilateral low back pain without sciatica [...] Info) Description 04/18/2024 9:00 AM EST Nutrition [facility] DIABETES/NUTRITION [address] [place] [address] [place] [address] documented as of this encounter Visit Diagnoses Diagnosis Chronic bilateral low back pain without sciatica documented in this encounter Additional Health Concerns Assessment Noted Time PHQ-9 Depression Total Score: 0 05/30/19 23 3:26 PM EDT documented as of this encounter Care Teams System Developer Associate Manager Relationship Specialty Start Date End Date Maddie Kim MD [address] [place] [address] PCP - General Family Medicine 07/12/20 Willie Gage 01/17/22 documented as of this encounter
--- OUTSIDE RECORDS SUMMARY | 2024-04-02 16:42 | XMS_ITS | Encounter Summary ---
Author Organization [employer] Address [address] [place] [address] 7t [place] [address] Care Team Providers Care Brazing Machine Feeder Name Role Phone Maddie Kim MD Primary Care Provider [phone] Reason for Visit * Reason Onset Date Comments FYI 03/28/2024 Encounter Details Date Type Department Care Team ([facility] Contact Info) Description 03/28/2024 Telephone [facility] MEDICINE [address] [place], [place] [phone] Maddie Kim MD [address] [place], [place] [phone] Social History Tobacco Use Types Packs/Day Years [...] Gage stating that Pt was seen at [facility] and she also said that they took pt off Med hydroCHLOROthiazide (HYDRODiuril) 25 MG tablet If any questions contact Lauren at [phone] documented in this encounter Plan of Treatment Upcoming Encounters Date Type Department Care Team (Late st Contact Info) Description 04/18/2024 9:00 AM EST Nutrition [facility] DIABETES/NUTRITION [address] [place] [address] [place] [address] documented as of this encounter Visit Diagnoses Not on filedocumented in this encounter Additional Health Concerns Assessment Noted Time PHQ-9 Depression Total Score: 3 06/15/19 24 11:48 AM EDT documented as of this encounter Care Teams Brazing Machine Feeder Relationship Specialty Start Date End Date Maddie Kim MD [address] [place] [address] PCP - General Family Medicine 07/12/20 Willie Gage 01/17/22 documented as of this encounter
--- OUTSIDE RECORDS SUMMARY | 2024-04-02 16:42 | XMS_ITS | Encounter Summary ---
Author Organization [employer] Address [address] [place] [address] 7t [place] [address] Care Team Providers Care Curing Oven Attendant Name Role Phone Maddie Kim MD Primary Care Provider [phone] Reason for Visit * Reason Onset Date Comments Hospital Follow-up 03/28/2024 Encounter Details Date Type Department Care Team ([facility] Contact Info) Description 03/28/2024 Telephone [facility] MEDICINE [address] [place], [place] [phone] Maddie Kim MD [address] [place], [place] [phone] Hospital Follow-up Social History Tobacco Use Types [...] from pt requesting a HDF appt. Hospital: [facility] Date of admission: 03/24/24 Discharge date: 03/27/24 Diagnosed: Hyponatremia *Send message to [facility] Clinical Care Coordinators documented in this encounter Plan of Treatment Upcoming Encounters Date Type Department Care Team (Late st Contact Info) Description 04/18/2024 9:00 AM EST Nutrition [facility] DIABETES/NUTRITION [address] [place] [address] [place] [address] documented as of this encounter Visit Diagnoses Not on filedocumented in this encounter Additional Health Concerns Assessment Noted Time PHQ-9 Depression Total Score: 3 06/15/19 24 11:48 AM EDT documented as of this encounter Care Teams Curing Oven Attendant Relationship Specialty Start Date End Date Maddie Kim MD [address] [place] [address] PCP - General Family Medicine 07/12/20 Willie Gage 01/17/22 documented as of this encounter
--- OUTSIDE RECORDS SUMMARY | 2024-04-02 16:42 | XMS_ITS | Encounter Summary ---
Author Organization [employer] Address [address] [place] [address] 7t [place] [address] Care Team Providers Care Industrial Twisting Machine Operator Name Role Phone Maddie Kim MD Primary Care Provider [phone] Reason for Referral * Consultation (Routine) - Closed Specialty Diagnoses / Procedures Referred By Sindi mejia Referred To Contact Nutrition Diagnoses Class 2 severe obesity with serious comorbidity and body mass index (BMI) of 39.0 to 39.9 in adult, unspecified obesity type (CMS/HCC) Maddie Kim MD [address] [place] [phone] Phone: tel: fax: Referral ID Status Reason Start Date Expiration Date V isits Requested Visits Authorized [id number] Closed Consult and Treat 04/06/2023 04/05/2024 1 1 Encounter Details Date Type Department Care Team (Late st Contact Info) Description 04/06/2023 Orders Only [facility] MEDICINE [address] [place] [address] [phone] Maddie Kim MD [address] [place] [address] Class 2 severe obesity with serious comorbidity [...] [facility] DI[facility]NUTRITION [address] [place] [address] [place] [address] Scheduled Referrals Name Type Priority Associated Diagnoses [...] EDT Narrative 05/26/2023 3:06 PM EDT ? [facility] ? [address] ?[place] [address] ? Mammography Report ? Signed ? Patient: Isaias,Atiya ?MR#: [id number] ? : 1975 ?Acct:[id number] ? Age/Sex: 47 / F ?ADM Date: 05/04/23 ? Loc: HO.MAMMO ? Attending Dr: Maddie Kim MD ? Ordering Physician: Maddie Kim ?Results: 1Negative ? Date of Service: 05/04/23 ?Follow Up: 1 Year From Orig ?? inal Mammogram ? Procedure(s): MM tomosynthesis screening BI ?? Accession Number(s): [id number] ? cc: Maddie Kim ? EXAMINATION: ?? [...] 1503 ? DD/ 1602 ? TD/TT: ? Distribution Driver: ? Procedure Note Donrutter, Image - 05/26/2023 [facility] [address] [place] [address] Mammography Report Signed Patient: Zain Esparza#: [id number] : 1975Acct:[id number] Age/Sex: 47 / FADM Date: 05/04/23 Loc: MICHAEL Attending Dr: Maddie Kim MD Ordering Physician: Jaja Kimults: 1Negative Date of Service: 05/04/23Follow Up: 1 Year From Orig inal Mammogram Procedure(s): MM tomosynthesis screening BI Accession Number(s): [id number] cc: Maddie Kim EXAMINATION: MM SCREENING DIGITAL [...] in OV> 05/26/23 1503 DD/ 1602 TD/TT: Distribution Driver: Maddie Kim MD IMG BI PROCEDURES Final [...] documented as of this encounter Care Teams Industrial Twisting Machine Operator Relationship Specialty Start Date End Date Maddie Kim MD [address] [place] [address] PCP - General Family Medicine 07/12/20 Willie Gage 01/17/22 documented as of this encounter
--- OUTSIDE RECORDS SUMMARY | 2024-04-02 16:42 | XMS_ITS | Clinical Summary ---
Author Organization Unknown Care Team Providers Care Computer System Validation Specialist Name Role Phone MARLON AHUMADA, JEAN-PIERRE Unavailable Unavailable ENRIQUE WEINSTEINW, WINNIE Unavailable Unavailable KATINA RN, ANASTACIA Unavailable Unavailable SMILEY RN, JENNI Unavailable Unavailable JAVIER RN, GABBY Unavailable Unavaila ble Payers Payer Name Policy Type Policy Number Effective Date Expira tion Date [facility] [id number] [place]ID [place] [id number] MEDICARE - [facility] [place] - [place] [id number] Problems Condition Name Condition Details Condition Category [...] 2020-02 00:00: 00 03-07 00:00 :00 No [id number] 10 mg 3 TIMES DAILY 10 mg 3 TIMES DAILY (route: oral) Med Classific ation: Locomotor System buprenorphi ne 4 mg-naloxone 1 mg sublingual film 2020-02 00:00: 00 04-05 00:00 :00 No [id number] Per instruc tions NEEDED Per instructio ns NEEDED (route: sublingual ) Med Classific ation: Chemical Dependenc y, Agents to Treat divalproex 250 mg tablet,kassandra yed release 2020-02 00:00: 00 04-05 23:59 :00 No [id number] 250 mg DAILY 250 mg DAILY (route: oral) Med Classific ation: Central Nervous System Agents divalproex ER 500 mg tablet,exte nded release 24 hr 2020-02 00:00: 00 04-05 00:00 :00 No [id number] 500 mg 2 TIMES DAILY 500 mg 2 TIMES DAILY (route: oral) Med Classific ation: Central Nervous System Agents ferrous sulfate 325 mg (65 mg iron) tablet 2020-02 00:00: 00 04-05 00:00 :00 No [id number] 1 tablet DAILY 1 tablet DAILY (route: oral) Med Classific ation: Electroly te Balance-N utritiona l Products Invega Sustenna 156 mg/mL intramuscul ar syringe 2020-02 00:00: 00 05-11 23:59 :00 No [id number] 156 mg MONTHLY 156 mg MONTHLY (route: intramuscu lar) Med Classific ation: Central Nervous System Agents levothyroxi ne 25 mcg tablet 2020-02 00:00: 00 03-05 23:59 :00 No [id number] 25 mcg DAILY 25 mcg DAILY (route: oral) Med Classific ation: Endocrine lisinopril 5 mg tablet 2020-02 00:00: 00 11-21 23:59 :00 No [id number] 5 mg DAILY 5 mg DAILY (route: oral) Med Classific ation: Cardiovas cular Therapy Agents nicotine (polacrilex ) 4 mg gum 2020-02 00:00: 00 09-12 23:59 :00 No [id number] 4 gum NEEDED 4 gum NEEDED (route: buccal) Med Classific ation: Chemical Dependenc y, Agents to Treat nicotine 21mg/24hr-1 4mg/24hr-7m g/24hr daily transderm patches,seq uentl 2020-02 00:00: 00 09-12 23:59 :00 No [id number] 21 patch NEEDED 21 patch NEEDED (route: transderma l) Med Classific ation: Chemical Dependenc y, Agents to Treat nystatin 500,000 unit tablet 2020-02 00:00: 00 04-05 00:00 :00 No [id number] In unit 4 TIMES DAILY [id number] In unit 4 TIMES DAILY (route: oral) Med Classific ation: Anti-Infe ctive Agents omeprazole 20 mg tablet,kassandra yed release 2020-02 00:00: 00 Yes [id number] 20 mg DAILY 20 mg DAILY (route: oral) Med Classific ation: Gastroint estinal Therapy Agents prazosin 5 mg capsule 2020-02 00:00: 00 02-14 23:59 :00 No [id number] 5 capsule BEDTIME 5 capsule BEDTIME (route: oral) Med Classific ation: Cardiovas cular Therapy Agents trazodone 50 mg tablet 2020-02 00:00: 00 01-17 23:59 :00 No [id number] 50 mg NEEDED 50 mg NEEDED (route: oral) Med Classific ation: Central Nervous System Agents albuterol sulfate HFA 90 mcg/actuati on aerosol inhaler 04-05 00:00: 00 Yes [id number] 2 puff NEEDED 2 puff NEEDED (route: inhalation ) Med Classific ation: Respirato ry Therapy Agents Aspercreme with Aloe 10 % topical 04-05 00:00: 00 09-12 23:59 :00 No [id number] Per instruc tions NEEDED Per instructio ns NEEDED (route: topical) Med Classific ation: Dermatolo gical cyclobenzap rine 5 mg tablet 04-05 00:00: 00 01-17 23:59 :00 No [id number] 5 mg NEEDED 5 mg NEEDED (route: oral) Med Classific ation: Locomotor System Depakote 500 mg tablet,kassandra yed release 04-05 00:00: 00 05-06 23:59 :00 No [id number] 1000 mg 2 TIMES DAILY 1000 mg 2 TIMES DAILY (route: oral) Med Classific ation: Central Nervous System Agents diphenhydra mine 25 mg capsule 04-05 00:00: 00 06-01 23:59 :00 No [id number] 50 mg NEEDED 50 mg NEEDED (route: oral) Med Classific ation: Respirato ry Therapy Agents hydroxyzine HCl 50 mg tablet 2-15 00:00: 00 06-01 23:59 :00 No [id number] 50 mg 3 TIMES DAILY 50 mg 3 TIMES DAILY (route: oral) Med Classific ation: Central Nervous System Agents naltrexone 50 mg tablet 2-15 00:00: 00 06-01 23:59 :00 No [id number] 50 mg DAILY 50 mg DAILY (route: oral) Med Classific ation: Antidotes and other Reversal Agents Narcan 4 mg/actuatio n nasal spray 2-15 00:00: 00 06-01 23:59 :00 No [id number] Per instruc tions NEEDED Per instructio ns NEEDED (route: nasal) Med Classific ation: Antidotes and other Reversal Agents pyridoxine (vitamin B6) 25 mg tablet 2-15 00:00: 00 06-01 23:59 :00 No [id number] 25 mg DAILY 25 mg DAILY (route: oral) Med Classific ation: Electroly te Balance-N utritiona l Products Invega Sustenna 234 mg/1.5 mL intramuscul ar syringe 3-24 00:00: 00 Yes [id number] Per instruc tions MONTHLY Per instructio ns MONTHLY (route: intramuscu lar) Med Classific ation: Central Nervous System Agents Invega Sustenna 234 mg/1.5 mL intramuscul ar syringe 8-14 00:00: 00 11-30 23:59 :00 No [id number] 234 mg MONTHLY 234 mg MONTHLY (route: intramuscu lar) Med Classific ation: Central Nervous System Agents Celebrex 200 mg capsule 2021-02 0-26 00:00: 00 03-20 23:59 :00 No [id number] 200 mg 2 TIMES DAILY 200 mg 2 TIMES DAILY (route: oral) Alternate Route: NONE. Med Classific ation: Analgesic , Anti-infl ammatory or Antipyret ic Celebrex 200 mg capsule 1-30 00:00: 00 01-10 23:59 :00 No [id number] 200 mg DAILY 200 mg DAILY (route: oral) Alternate Route: NONE. Med Classific ation: Analgesic , Anti-infl ammatory or Antipyret ic docusate sodium 100 mg capsule 30 00:00: 00 01-29 23:59 :00 No [id number] 1 capsule 2 TIMES DAILY 1 capsule 2 TIMES DAILY (route: oral) Alternate Route: NONE. Med Classific ation: Gastroint estinal Therapy Agents Eliquis 2.5 mg tablet 30 00:00: 00 09-12 23:59 :00 No [id number] 1 tablet 2 TIMES DAILY 1 tablet 2 TIMES DAILY (route: oral) Med Classific ation: Hematolog ical Agents oxycodone 5 mg tablet 03-20 00:00: 00 04-18 23:59 :00 No [id number] Per instruc tions DIRECTED Per instructio ns DIRECTED (route: oral) Alternate Route: NONE. Med Classific ation: Analgesic , Anti-infl ammatory or Antipyret ic tramadol 50 mg tablet 03-20 00:00: 00 04-18 23:59 :00 No [id number] Per instruc tions DIRECTED Per instructio ns DIRECTED (route: oral) Med Classific ation: Analgesic , Anti-infl ammatory or Antipyret ic gabapentin 300 mg capsule 3-29 00:00: 00 01-10 23:59 :00 No [id number] 1 capsule 3 TIMES DAILY 1 capsule 3 TIMES DAILY (route: oral) Med Classific ation: Central Nervous System Agents cyclobenzap rine 5 mg tablet 7-27 00:00: 00 01-10 23:59 :00 No [id number] 1 tablet 3 TIMES DAILY 1 tablet 3 TIMES DAILY (route: oral) Med Classific ation: Locomotor System baclofen 10 mg tablet 2022-02 1-24 00:00: 00 03-30 23:59 :00 No [id number] 1 tablet DIRECTED 1 tablet DIRECTED (route: oral) Med Classific ation: Locomotor System docusate sodium 100 mg capsule 2022-02 00:00: 00 Yes [id number] 1 capsule NEEDED 1 capsule NEEDED (route: oral) Med Classific ation: Gastroint estinal Therapy Agents acetaminoph en 300 mg-codeine 30 mg tablet 2-09 00:00: 00 05-15 23:59 :00 No [id number] 1 tablet 3 TIMES DAILY 1 tablet 3 TIMES DAILY (route: oral) Med Classific ation: Analgesic , Anti-infl ammatory or Antipyret ic Paxlovid 300 mg (150 mg x 2)-100 mg tablets in a dose pack 09 00:00: 00 04-03 23:59 :00 No [id number] 3 tablet 2 TIMES DAILY 3 tablet 2 TIMES DAILY (route: oral) Med Classific ation: Anti-Infe ctive Agents tizanidine 4 mg tablet 03-30 00:00: 00 01-03 23:59 :00 No [id number] 1 tablet 3 TIMES DAILY 1 tablet 3 TIMES DAILY (route: oral) Med Classific ation: Locomotor System Depakote 500 mg tablet,kassandra yed release 3-23 00:00: 00 03-31 23:59 :00 No [id number] 1000 mg 2 TIMES DAILY 1000 mg 2 TIMES DAILY (route: oral) Med Classific ation: Central Nervous System Agents multivitami n tablet 15 00:00: 00 Yes [id number] 1 tablet DIRECTED 1 tablet DIRECTED (route: oral) Med Classific ation: Electroly te Balance-N utritiona l Products gabapentin 300 mg capsule 07-10 00:00: 00 Yes [id number] 2 capsule 3 TIMES DAILY 2 capsule 3 TIMES DAILY (route: oral) Med Classific ation: Central Nervous System Agents paliperidon e ER 1.5 mg tablet,exte nded release 24 hr 07-10 00:00: 00 11-22 23:59 :00 No [id number] 1 tablet DAILY 1 tablet DAILY (route: [...] AWARENESS FOR SAFETY AND WILL NOTIFY CLINICAL FLITCH HANGER AND PHYSICIAN/PROVIDER WITH ANY CHANGE IN CONDITION. [code = SKILLED NURSE WILL MAINTAIN SITUATIONAL AWARENESS FOR SAFETY AND WILL NOTIFY CLINICAL FLITCH HANGER AND PHYSICIAN/PROVIDER WITH ANY CHANGE IN CONDITION.] [...] REDUCE AVOIDABLE HOSPITALIZATION AND ED USE.] Goal 2022-03-13 Patient Goal - D O GOOD AT WORK AND STAY OUT OF HOSPITAL Goal 2022-05-15 Patient Goal - GO TO THE GYM Goal 2022-07-11 Patient Goal - GO TO THE GYM , LOSE 10 LBS Goal 2022-09-12 Patient Goal - GO TO THE GYM , LOSE 10 LBS Goal 2022-11-08 Patient Goal - G O TO THE GYM, LOWER NICOTINE LEVEL ON VAPE, LOSE 20 LB Goal 2023-01-10 Patient Goal - G O TO THE GYM, STAY SOBER, KEEP LOWERING NICOTINE LEVEL Goal 2023-03-08 Patient Goal - G O [...] - TO BE MED ADH ERENT Goal Provider Goal - PATIENT/CAREGIVER WILL VERBALIZE/DEMONSTRATE [...] RN]:</paragraph><paragraph>BELA NOTE 03/28/24 PATIENT WAS ADMITTED TO [facility] FOR HYPONATREMIA ON 03/25/24. PATIENT WAS [...] End Date/Time Encounter Type Admission Type Attending [facility] Care Department Encounter ID Discharge Date Discharge Status Discharge Condition Discharge Reason Percent Goals Met 2022-01-17 00:00:00 2024-05-05 00:00:00 Outpatient RECERTIFIC DAYANION GABBY HERRERA [facility] [id number] 34.38
--- OUTSIDE RECORDS SUMMARY | 2024-04-02 16:42 | XMS_ITS | Encounter Summary ---
Author Organization [employer] Address [address] [facility] 7t [place] [address] Care Team Providers Care Pickle Maker Name Role Phone Maddie Kim MD Primary Care Provider [phone] Reason for Visit * Reason Onset Date Comments Verbal orders/ Medication question 05/08/2023 Encounter Details Date Type Department Care Team ([facility] Contact Info) Description 05/08/2023 Telephone [facility] MEDICINE 230 [place], [place] [phone] Maddie Kim MD 230 [place], [place] [phone] Verbal orders/ Medication question Social History Tobacco [...] 05/09/2023 9:54 AM EDT TC placed to [place] at the [facility] and gave VO for assisted for 3 times a week. Pt medications were also reconciled and pt reports using Viviscal OTC for hair growth and Calcium + VitD supplements. * Telephone Encounter - Toña Castillo - 05/08/2023 4:20 PM EDT Tc from [facility] requesting some verbal orders reconciliation for skill nursing 3 times a week. [place] is also requesting a call back to speak about patient's medications. documented in this encounter Plan of Treatment Upcoming Encounters Date Type Department Care Team (Late st Contact Info) Description 04/18/2024 9:00 AM EST Nutrition [facility] DIABETES/NUTRITION [address] [place] [address] [place] [address] documented as of this encounter Visit Diagnoses Not on filedocumented in this encounter Additional Health Concerns Assessment Noted Time PHQ-9 Depression Total Score: 0 05/30/19 23 3:26 PM EDT documented as of this encounter Care Teams Pickle Maker Relationship Specialty Start Date End Date Maddie Kim MD [address] [place] [address] PCP - General Family Medicine 07/12/20 Willie Gage 01/17/22 documented as of this encounter
--- OUTSIDE RECORDS SUMMARY | 2024-04-02 16:42 | XMS_ITS | Encounter Summary ---
Author Organization [employer] Address [address] [facility] 7t [place] [address] Care Team Providers Care [place] Seamer Name Role Phone Maddie Kim MD Primary Care Provider [phone] Reason for Visit * Reason Onset Date Comments Med Refill 05/10/2023 Encounter Details Date Type Department Care Team ([facility] st Contact Info) Description 05/10/2023 Refill [facility] MEDICINE 230 [place], [place] [phone] Maddie Kim MD [address] [place], [place] [phone] Chronic bilateral low back pain without sciatica [...] Info) Description 04/18/2024 9:00 AM EST Nutrition [facility] DIABETES/NUTRITION 230 [place] [address] [place] [address] documented as of this encounter Visit Diagnoses Diagnosis Chronic bilateral low back pain without sciatica documented in this encounter Additional Health Concerns Assessment Noted Time PHQ-9 Depression Total Score: 0 05/30/19 23 3:26 PM EDT documented as of this encounter Care Teams [place] Seamer Relationship Specialty Start Date End Date Maddie Kim MD [address] [place] [address] PCP - General Family Medicine 07/12/20 Willie Gage 01/17/22 documented as of this encounter
--- OUTSIDE RECORDS SUMMARY | 2024-04-02 16:42 | XMS_ITS | Encounter Summary ---
Author Organization [employer] Address [address] [facility] 7t [place] [address] Care Team Providers Care Mailing Machine Assistant Name Role Phone Maddie Kim MD Primary Care Provider [phone] Reason for Visit * Reason Comments Transition Of Care (Tcm) HDF- Unschedule d- PATIENT REQ. A HDF WITHIN 7 DAYS AND ONLY WITH HER PCP Encounter Details Date Type Department Care Team ([facility] st Contact Info) Description 03/28/2024 Patient Outreach [facility] MEDICINE 230 [place], [place] [phone] Maddie Kim MD 230 [place], [place] [phone] Transition Of Care (Tcm) (HDF- Unscheduled- PATIENT [...] t he electric, gas, oil or water [employer] threatened to shut off services in your [...] 1:27 PM EST TC placed to patient [phone] in regards to below message. Patient did not answer, RN left requesting CB to red team nurses. RN will re-attempt tomorrow if no CB. documented in this encounter Miscellaneous Notes * Significant Event - Ruby Summers - 03/28/2024 1:34 PM EST 03/28/24 1332 Hospital Discharges and Admission for [facility] Type of Visit Hospital Admission Date of Admission/Visit 03/25/24 Date of Discharge 03/27/24 Facility [facility] Diagnosis Hyponatremia Disposition Discharged Home Follow-Up [...] Description 04/18/2024 9:00 AM EST Nutrition [facility] DIABETES/NUTRITION 230 [place], [place] [phone] Rosie Vick, SHANICE [address] [place] [address] documented as of this encounter Visit Diagnoses Not on filedocumented in this encounter Additional Health Concerns Assessment Noted Time PHQ-9 Depression Total Score: 3 06/15/19 24 11:48 AM EDT documented as of this encounter Care Teams Mailing Machine Assistant Relationship Specialty Start Date End Date Maddie Kim MD 230 [place] [address] PCP - General Family Medicine 07/12/20 Willie Gage 01/17/22 documented as of this encounter
--- OUTSIDE RECORDS SUMMARY | 2024-04-02 16:42 | XMS_ITS | Encounter Summary ---
Author Organization [employer] Address [address] [facility] 7t [place] [address] Care Team Providers Care It Support Manager Name Role Phone Maddie Kim MD Primary Care Provider [phone] Reason for Visit * Reason Comments Med Refill Encounter Details Date Type Department Care Team ([facility] st Contact Info) Description 03/18/2023 Refill [facility] WALK-IN CENTER [address] [place] [address] [phone] Maddie Kim MD [address] [place] [address] [phone] Social History Tobacco Use Types Packs/Day Years [...] Description 04/18/2024 9:00 AM EST Nutrition [facility] DIABETES/NUTRITION 230 [place] [address] Rosie Vick, SHANICE 230 [place] [address] documented as of this encounter Visit Diagnoses Not on filedocumented in this encounter Additional Health Concerns Assessment Noted Time PHQ-9 Depression Total Score: 0 05/30/19 23 3:26 PM EDT documented as of this encounter Care Teams It Support Manager Relationship Specialty Start Date End Date Maddie Kim MD 230 [place] [address] PCP - General Family Medicine 07/12/20 Willie Gage 01/17/22 documented as of this encounter
--- OUTSIDE RECORDS SUMMARY | 2024-04-02 16:42 | XMS_ITS | Encounter Summary ---
Author Organization [employer] Address [address] [facility] 7t [place] [address] Care Team Providers Care Order Worker Name Role Phone Maddie Kim MD Primary Care Provider [phone] Encounter Details Date Type Department Care Team ([facility] st Contact Info) Description 03/19/2023 Orders Only [facility] MEDICINE 230 [place], [place] [phone] Maddie Kim MD 230 [place], [place] [phone] Herniated lumbar intervertebral disc (Primary Dx) Social [...] 04/18/2024 9:00 AM EST Nutrition [facility] DIABETES/NUTRITION 230 [place] [address] Rosie Vick, SHANICE 230 [place] [address] documented as of this encounter Visit Diagnoses Diagnosis Herniated lumbar intervertebral disc- Primary Displacement of lumbar intervertebral disc without myelopathy documented in this encounter Additional Health Concerns Assessment Noted Time PHQ-9 Depression Total Score: 0 05/30/19 23 3:26 PM EDT documented as of this encounter Care Teams Order Worker Relationship Specialty Start Date End Date Maddie Kim MD 230 [place] [address] PCP - General Family Medicine 07/12/20 Willie Gage 01/17/22 documented as of this encounter
--- OUTSIDE RECORDS SUMMARY | 2024-04-02 16:42 | XMS_ITS | Encounter Summary ---
Author Organization [employer] Address 75 [facility] 7t [place] [address] Care Team Providers Care Forge Shop Machine Repairer Name Role Phone Maddie Kim MD Primary Care Provider [phone] Reason for Visit * Reason Onset Date Comments Nurse Triage 05/14/2023 Encounter Details Date Type Department Care Team ([facility] st Contact Info) Description 05/14/2023 Telephone [facility] MEDICINE 230 [place], [place] [phone] Maddie Kim MD 230 [place], [place] [phone] Nurse Triage Social History Tobacco Use Types [...] accepted this outcome Any questions to Destiny [phone] documented in this encounter Plan of Treatment Upcoming Encounters Date Type Department Care Team (Late st Contact Info) Description 04/18/2024 9:00 AM EST Nutrition [facility] DIABETES/NUTRITION 230 [place] [address] Rosie Vick, RD 230 [place] [address] documented as of this encounter Visit Diagnoses Not on filedocumented in this encounter Additional Health Concerns Assessment Noted Time PHQ-9 Depression Total Score: 0 05/30/19 23 3:26 PM EDT documented as of this encounter Care Teams Forge Shop Machine Repairer Relationship Specialty Start Date End Date Maddie Kim MD 230 [place] [address] PCP - General Family Medicine 07/12/20 Willie Gage 01/17/22 documented as of this encounter
--- OUTSIDE RECORDS SUMMARY | 2024-04-02 16:42 | XMS_ITS | Encounter Summary ---
Author Organization [employer] Address [address] [place] [address] 7t [place] [address] Care Team Providers Care Therapist Rrt Name Role Phone Maddie Kim MD Primary Care Provider [phone] Reason for Visit * Reason Onset Date Comments No Show 04/02/2024 Encounter Details Date Type Department Care Team ([facility] Contact Info) Description 04/02/2024 Telephone [facility] MEDICINE 230 [place], [place] [phone] Maddie Kim MD 230 [place], [place] [phone] No Show Social History Tobacco Use Types [...] Info) Description 04/18/2024 9:00 AM EST Nutrition [facility] DIABETES/NUTRITION 230 [place] [address] [place] [address] documented as of this encounter Visit Diagnoses Not on filedocumented in this encounter Additional Health Concerns Assessment Noted Time PHQ-9 Depression Total Score: 3 06/15/19 24 11:48 AM EDT documented as of this encounter Care Teams Therapist Rrt Relationship Specialty Start Date End Date Maddie Kim MD 230 [place] [address] PCP - General Family Medicine 07/12/20 Willie Gage 01/17/22 documented as of this encounter
--- OUTSIDE RECORDS SUMMARY | 2024-04-02 16:42 | XMS_ITS | Encounter Summary ---
Author Organization [employer] Address 75 [facility] 7t [place] [address] Care Team Providers Care Machine Steak Tenderizer Name Role Phone Maddie Kim MD Primary Care Provider [phone] Encounter Details Date Type Department Care Team ([facility] st Contact Info) Description 03/24/2024 Telephone [facility] MEDICINE 230 [place], [place] [phone] Maddie Kim MD 230 [place], [place] [phone] Social History Tobacco Use Types Packs/Day Years [...] reviewed meditech, patient is currently admitted to [facility] d/t hypokalemia, hyperkalemia and hypotension. Patient admitted [...] 3:29 PM EST TC placed to patient [phone] to inform patient, PCP would like patient to repeat BW tomorrow as per provider at [facility]. If sodium returns low again then [...] Name of Caller/Facility:Lauren Gage RN Callback number: [phone] Reason for Call: NA 125 Lauren RN [...] team nurses for follow up. High Priority [employer] Chat Secure Message also sent to Red Team Nurses. documented in this encounter Plan of Treatment Upcoming Encounters Date Type Department Care Team (Late st Contact Info) Description 04/18/2024 9:00 AM EST Nutrition [facility] DIABETES/NUTRITION 230 [place] [address] Rosie Vick, SHANICE 230 [place] [address] documented as of this encounter Visit Diagnoses Not on filedocumented in this encounter Additional Health Concerns Assessment Noted Time PHQ-9 Depression Total Score: 3 06/15/19 24 11:48 AM EDT documented as of this encounter Care Teams Machine Steak Tenderizer Relationship Specialty Start Date End Date Maddie Kim MD 230 [place] [address] PCP - General Family Medicine 07/12/20 Willie Gage 01/17/22 documented as of this encounter
--- OUTSIDE RECORDS SUMMARY | 2024-04-02 16:42 | XMS_ITS | Encounter Summary ---
Author Organization [employer] Address [address] [place] [address] 7t [place] [address] Care Team Providers Care Die Welder Name Role Phone Maddie Kim MD Primary Care Provider [phone] Encounter Details Date Type Department Care Team ([facility] Contact Info) Description 06/26/2022 Abstract [facility] MEDICINE 230 [place] [address] Maddie Kim MD 230 [place] [address] Social History Tobacco Use Types Packs/Day Years [...] Upcoming Encounters Date Type Department Care Team ([facility] Contact Info) Description 04/18/2024 9:00 AM EST Nutrition [facility] DIABETES/NUTRITION 230 [place] [address] Rosie Vick, SHANICE 230 [place], [place] [phone] documented as of this encounter Visit Diagnoses Not on filedocumented in this encounter Additional Health Concerns Assessment Noted Time PHQ-9 Depression Total Score: 0 05/30/19 23 3:26 PM EDT documented as of this encounter Care Teams Die Welder Relationship Specialty Start Date End Date Maddie Kim MD 230 [place], [place] [phone] PCP - General Family Medicine 07/12/20 Willie Gage 01/17/22 documented as of this encounter
--- OUTSIDE RECORDS SUMMARY | 2024-04-02 16:42 | XMS_ITS | Encounter Summary ---
Author Organization [employer] Address [address] [facility] 7t [place] [address] Care Team Providers Care Sleeve Fixer Name Role Phone Maddie Kim MD Primary Care Provider [phone] Reason for Visit * Reason Comments Med Refill Encounter Details Date Type Department Care Team ([facility] st Contact Info) Description 04/05/2023 Refill [facility] WALK-IN CENTER [address] [place] [address] [phone] Isac Gonzalez MD [address] [place] [address] [phone] Chronic bilateral low back pain without sciatica [...] - 04/06/2023 12:46 PM EST TC to [facility] pharmacy, T3 RX written 03/29/23 [...] 04/18/2024 9:00 AM EST Nutrition [facility] DIABETES/NUTRITION 230 [place] [address] [place] [address] documented as of this encounter Visit Diagnoses Diagnosis Chronic bilateral low back pain without sciatica documented in this encounter Additional Health Concerns Assessment Noted Time PHQ-9 Depression Total Score: 0 05/30/19 23 3:26 PM EDT documented as of this encounter Care Teams Sleeve Fixer Relationship Specialty Start Date End Date Maddie Kim MD 230 [place] [address] PCP - General Family Medicine 07/12/20 Willie Gage 01/17/22 documented as of this encounter
--- OUTSIDE RECORDS SUMMARY | 2024-04-02 16:42 | XMS_ITS | Encounter Summary ---
Author Organization [employer] Address [address] [facility] 7t [place] [address] Care Team Providers Care Bath Mixer Name Role Phone Maddie Kim MD Primary Care Provider [phone] Reason for Visit * Reason Onset Date Comments Med Refill 04/12/2023 Encounter Details Date Type Department Care Team ([facility] st Contact Info) Description 04/12/2023 Refill [facility] MEDICINE 230 [place], [place] [phone] Maddie Kim MD 230 [place], [place] [phone] Chronic bilateral low back pain without sciatica [...] Description 04/18/2024 9:00 AM EST Nutrition [facility] DIABETES/NUTRITION 230 [place] [address] [place] [address] documented as of this encounter Visit Diagnoses Diagnosis Chronic bilateral low back pain without sciatica documented in this encounter Additional Health Concerns Assessment Noted Time PHQ-9 Depression Total Score: 0 05/30/19 23 3:26 PM EDT documented as of this encounter Care Teams Bath Mixer Relationship Specialty Start Date End Date Maddie Kim MD 230 [place] [address] PCP - General Family Medicine 07/12/20 Willie Gage 01/17/22 documented as of this encounter
--- OUTSIDE RECORDS SUMMARY | 2024-04-02 16:42 | XMS_ITS | Encounter Summary ---
Author Organization [employer] Address [address] [facility] 7t [place] [address] Care Team Providers Care Elevator Worker Name Role Phone Maddie Kim MD Primary Care Provider [phone] Reason for Visit * Reason Comments Med Refill Encounter Details Date Type Department Care Team ([facility] st Contact Info) Description 04/12/2023 Refill [facility] WALK-IN CENTER [address] [place] [address] [phone] Isac Gonzalez MD 230 [place], [place] [phone] Chronic bilateral low back pain without sciatica [...] 04/18/2024 9:00 AM EST Nutrition [facility] DIABETES/NUTRITION 230 [place] [address] [place] [address] documented as of this encounter Visit Diagnoses Diagnosis Chronic bilateral low back pain without sciatica documented in this encounter Additional Health Concerns Assessment Noted Time PHQ-9 Depression Total Score: 0 05/30/19 23 3:26 PM EDT documented as of this encounter Care Teams Elevator Worker Relationship Specialty Start Date End Date Maddie Kim MD 230 [place] [address] PCP - General Family Medicine 07/12/20 Willie Gage 01/17/22 documented as of this encounter
--- OUTSIDE RECORDS SUMMARY | 2024-04-02 16:42 | XMS_ITS | Encounter Summary ---
Author Organization [employer] Address [address] [facility] 7t [place] [address] Care Team Providers Care Tableau Analyst Name Role Phone Maddie Kim MD Primary Care Provider [phone] Reason for Visit * Reason Onset Date Comments Med Refill 03/19/2023 Encounter Details Date Type Department Care Team ([facility] Contact Info) Description 03/19/2023 Telephone [facility] MEDICINE 230 [place] [address] Maddie Kim MD 230 [place], [place] [phone] Med Refill Social History Tobacco Use Types [...] Pt agrees. MD Maddie Saravia RN; [facility] Team Nurses Caller: Unspecified (2 weeks ago) I wrote her a work excuse extending her time for remote work until 04/05/23 * Telephone Encounter - Maddie Crawford RN - 04/02/2023 3:02 PM EST Images from the original note were not included. Triage call regarding Pt portal message below. Pt continues to have symptoms of Covid. Pt was seen in [facility] 03/29/[address] Gonzalez and dx [...] better sooner will go into office to [facility]. Advised Pt will send this [...] - Diagnosed With COVID-19 by Doctor (or TRACK CAR OPERATOR/PA) and Mild Symptoms * General Care Advice for COVID-19 Symptoms * Humidifier * Coughing Spells * Pain and Fever Medicines * Mild Stomach and Intestinal Symptoms During COVID-19 Illness [facility] Clinial Support (supporting Lorrie Alaniz [...] Info) Description 04/18/2024 9:00 AM EST Nutrition [facility] DIABETES/NUTRITION 230 [place] [address] Rosie Vick, SHANICE [address] [place] [address] documented as of this encounter Visit Diagnoses Not on filedocumented in this encounter Additional Health Concerns Assessment Noted Time PHQ-9 Depression Total Score: 0 05/30/19 23 3:26 PM EDT documented as of this encounter Care Teams Tableau Analyst Relationship Specialty Start Date End Date Maddie Kim MD 230 [place] [address] PCP - General Family Medicine 07/12/20 Willie Gage 01/17/22 documented as of this encounter
--- OUTSIDE RECORDS SUMMARY | 2024-04-02 16:42 | XMS_ITS | Encounter Summary ---
Author Organization [employer] Address [address] [facility] 7t [place] [address] Care Team Providers Care Supervisor Maintenance And Custodians Name Role Phone Maddie Kim MD Primary Care Provider [phone] Reason for Visit * Reason Onset Date Comments Call Back Request 03/31/2024 Encounter Details Date Type Department Care Team ([facility] Contact Info) Description 03/31/2024 Telephone [facility] MEDICINE 230 [place], [place] [phone] Maddie Kim MD 230 [place], [place] [phone] Call Back Request Social History Tobacco Use [...] 1:23 PM EST TC placed to patient [phone] in regards to below message. RN did attempt calling patient today(see [place] encounter). Patient accepted HDF appointment for 04/02/24 at 11am for HDF. Patient to f/u PRN. * Telephone Encounter - Elier Mckinley - 03/31/2024 12:58 PM EST Tc from pt stating that a nurse Lesvia called her to transfer call to red team , sports writer verify and there was no notes cardiopulmonary technologist chief she states that was placed. Pt then tells sports writer to tell nurse from red team to call her urgently. [phone] documented in this encounter Plan of Treatment Upcoming Encounters Date Type Department Care Team (Late st Contact Info) Description 04/18/2024 9:00 AM EST Nutrition [facility] DIABETES/NUTRITION 230 [place] [address] [place] [address] documented as of this encounter Visit Diagnoses Not on filedocumented in this encounter Additional Health Concerns Assessment Noted Time PHQ-9 Depression Total Score: 3 06/15/19 24 11:48 AM EDT documented as of this encounter Care Teams Supervisor Maintenance And Custodians Relationship Specialty Start Date End Date Maddie Kim MD [address] [place] [address] PCP - General Family Medicine 07/12/20 Willie Caring 01/17/22 documented as of this encounter
--- OUTSIDE RECORDS SUMMARY | 2024-04-02 16:42 | XMS_ITS | Encounter Summary ---
Author Organization [employer] Address [address] [place] [address] 7t [place] [address] Care Team Providers Care Director Print Name Role Phone Maddie Kim MD Primary Care Provider [phone] Reason for Visit * Reason Onset Date Comments NTTS 03/24/2024 Encounter Details Date Type Department Care Team ([facility] Contact Info) Description 03/24/2024 Telephone [facility] MEDICINE 230 [place], [place] [phone] Sheila Rene RN 230 [place] [address] NTTS Social History Tobacco Use Types Packs/Day [...] pain NTTS RN's advised patient to call [facility] in the AM for a consult. TC placed to patient [phone] who reports [facility] evaluated her on 03/22/24 and stated she does not have a UTI. Patient reports she was informed her pain is most likely related to her bladder mesh which was placed after her bladder lifting surgery in 2022. Patient also reports she is currently at a partial program and the provider ordered BW which patient completed on 03/21/24 via [facility] labs and her sodium returned low at [...] date and time. RN called [facility] [phone] to request visit note from 03/22/24 to be faxed to [phone]. RN also obtained [facility] labs from 03/21/24 and scanned into chart. documented in this encounter Plan of Treatment Upcoming Encounters Date Type Department Care Team (Late st Contact Info) Description 04/18/2024 9:00 AM EST Nutrition [facility] DIABETES/NUTRITION 230 [place] [address] Rosie Vick, SHANICE 230 [place] [address] documented as of this encounter Visit Diagnoses Not on filedocumented in this encounter Additional Health Concerns Assessment Noted Time PHQ-9 Depression Total Score: 3 06/15/19 24 11:48 AM EDT documented as of this encounter Care Teams Director Print Relationship Specialty Start Date End Date Maddie Kim MD 230 [place] [address] PCP - General Family Medicine 07/12/20 Willie Gage 01/17/22 documented as of this encounter
--- OUTSIDE RECORDS SUMMARY | 2024-04-02 16:42 | XMS_ITS | Encounter Summary ---
Author Organization [employer] Address 75 [facility] 7t [place] [address] Care Team Providers Care Mold Inspector Name Role Phone Maddie Kim MD Primary Care Provider [phone] Reason for Visit * Reason Onset Date Comments Med Refill 02/14/2023 Encounter Details Date Type Department Care Team ([facility] Contact Info) Description 02/14/2023 Refill [facility] WALK-IN CENTER [address] [place] [address] [phone] Maddie Kim MD 230 [place], [place] [phone] Social History Tobacco Use Types Packs/Day Years [...] Info) Description 04/18/2024 9:00 AM EST Nutrition [facility] DIABETES/NUTRITION 230 [place] [address] [place] [address] documented as of this encounter Visit Diagnoses Not on filedocumented in this encounter Additional Health Concerns Assessment Noted Time PHQ-9 Depression Total Score: 0 05/30/19 23 3:26 PM EDT documented as of this encounter Care Teams Mold Inspector Relationship Specialty Start Date End Date Maddie Kim MD 230 [place] [address] PCP - General Family Medicine 07/12/20 Willie Gage 01/17/22 documented as of this encounter
--- OUTSIDE RECORDS SUMMARY | 2024-04-02 16:42 | XMS_ITS | Encounter Summary ---
Author Organization [employer] Address [address] [facility] 7[address] [place] [address] Care Team Providers Care Inspector Line Name Role Phone Maddie Kim MD Primary Care Provider [phone] Reason for Visit * Reason Onset Date Comments Medication Question 07/05/2022 Encounter Details Date Type Department Care Team ([facility] Contact Info) Description 07/05/2022 Telephone [facility] MEDICINE [address] [place], [place] [phone] Maddie Kim MD [address] [place], [place] [phone] Medication Question Social History Tobacco Use Types [...] Nutrition [facility] DIABETES/NUTRITION [address] [place] [address] [place] [address] documented as of this encounter Visit Diagnoses Diagnosis History of arthroplasty of right knee Arthropathy Unspecified arthropathy, site unspecified documented in this encounter Additional Health Concerns Assessment Noted Time PHQ-9 Depression Total Score: 0 05/30/19 23 3:26 PM EDT documented as of this encounter Care Teams Inspector Line Relationship Specialty Start Date End Date Maddie Kim MD [address] [place] [address] PCP - General Family Medicine 07/12/20 Willie Gage 01/17/22 documented as of this encounter
--- OUTSIDE RECORDS SUMMARY | 2024-04-02 16:42 | XMS_ITS | Clinical Summary ---
Author Organization Unknown Care Team Providers Care Privacy Attorney Name Role Phone MARLON AHUMADA, JEAN-PIERRE Unavailable Unavailable ENRIQUE WEINSTEINW, WINNIE Unavailable Unavailable KATINA RN, ANASTACIA Unavailable Unavailable SMILEY RN, JENNI Unavailable Unavailable JAVIER RN, GABBY Unavailable Unavaila ble Payers Payer Name Policy Type Policy Number Effective Date Expira tion Date [facility] [id number] [place] [id number] MEDICARE - [facility] [place] - [place] [id number] Problems Condition Name Condition Details Condition Category [...] 2020-02 00:00: 00 03-07 00:00 :00 No [id number] 10 mg 3 TIMES DAILY 10 mg 3 TIMES DAILY (route: oral) Med Classific ation: Locomotor System buprenorphi ne 4 mg-naloxone 1 mg sublingual film 2020-02 00:00: 00 04-05 00:00 :00 No [id number] Per instruc tions NEEDED Per instructio ns NEEDED (route: sublingual ) Med Classific ation: Chemical Dependenc y, Agents to Treat divalproex 250 mg tablet,kassandra yed release 2020-02 00:00: 00 04-05 23:59 :00 No [id number] 250 mg DAILY 250 mg DAILY (route: oral) Med Classific ation: Central Nervous System Agents divalproex ER 500 mg tablet,exte nded release 24 hr 2020-02 00:00: 00 04-05 00:00 :00 No [id number] 500 mg 2 TIMES DAILY 500 mg 2 TIMES DAILY (route: oral) Med Classific ation: Central Nervous System Agents ferrous sulfate 325 mg (65 mg iron) tablet 2020-02 00:00: 00 04-05 00:00 :00 No [id number] 1 tablet DAILY 1 tablet DAILY (route: oral) Med Classific ation: Electroly te Balance-N utritiona l Products Invega Sustenna 156 mg/mL intramuscul ar syringe 2020-02 00:00: 00 05-11 23:59 :00 No [id number] 156 mg MONTHLY 156 mg MONTHLY (route: intramuscu lar) Med Classific ation: Central Nervous System Agents levothyroxi ne 25 mcg tablet 2020-02 00:00: 00 03-05 23:59 :00 No [id number] 25 mcg DAILY 25 mcg DAILY (route: oral) Med Classific ation: Endocrine lisinopril 5 mg tablet 2020-02 00:00: 00 11-21 23:59 :00 No [id number] 5 mg DAILY 5 mg DAILY (route: oral) Med Classific ation: Cardiovas cular Therapy Agents nicotine (polacrilex ) 4 mg gum 2020-02 00:00: 00 09-12 23:59 :00 No [id number] 4 gum NEEDED 4 gum NEEDED (route: buccal) Med Classific ation: Chemical Dependenc y, Agents to Treat nicotine 21mg/24hr-1 4mg/24hr-7m g/24hr daily transderm patches,seq uentl 2020-02 00:00: 00 09-12 23:59 :00 No [id number] 21 patch NEEDED 21 patch NEEDED (route: transderma l) Med Classific ation: Chemical Dependenc y, Agents to Treat nystatin 500,000 unit tablet 2020-02 00:00: 00 04-05 00:00 :00 No [id number] In unit 4 TIMES DAILY [id number] In unit 4 TIMES DAILY (route: oral) Med Classific ation: Anti-Infe ctive Agents omeprazole 20 mg tablet,kassandra yed release 2020-02 00:00: 00 Yes [id number] 20 mg DAILY 20 mg DAILY (route: oral) Med Classific ation: Gastroint estinal Therapy Agents prazosin 5 mg capsule 2020-02 00:00: 00 02-14 23:59 :00 No [id number] 5 capsule BEDTIME 5 capsule BEDTIME (route: oral) Med Classific ation: Cardiovas cular Therapy Agents trazodone 50 mg tablet 2020-02 00:00: 00 01-17 23:59 :00 No [id number] 50 mg NEEDED 50 mg NEEDED (route: oral) Med Classific ation: Central Nervous System Agents albuterol sulfate HFA 90 mcg/actuati on aerosol inhaler 04-05 00:00: 00 Yes [id number] 2 puff NEEDED 2 puff NEEDED (route: inhalation ) Med Classific ation: Respirato ry Therapy Agents Aspercreme with Aloe 10 % topical 04-05 00:00: 00 09-12 23:59 :00 No [id number] Per instruc tions NEEDED Per instructio ns NEEDED (route: topical) Med Classific ation: Dermatolo gical cyclobenzap rine 5 mg tablet 04-05 00:00: 00 01-17 23:59 :00 No [id number] 5 mg NEEDED 5 mg NEEDED (route: oral) Med Classific ation: Locomotor System Depakote 500 mg tablet,kassandra yed release 04-05 00:00: 00 05-06 23:59 :00 No [id number] 1000 mg 2 TIMES DAILY 1000 mg 2 TIMES DAILY (route: oral) Med Classific ation: Central Nervous System Agents diphenhydra mine 25 mg capsule 04-05 00:00: 00 06-01 23:59 :00 No [id number] 50 mg NEEDED 50 mg NEEDED (route: oral) Med Classific ation: Respirato ry Therapy Agents hydroxyzine HCl 50 mg tablet 2-15 00:00: 00 06-01 23:59 :00 No [id number] 50 mg 3 TIMES DAILY 50 mg 3 TIMES DAILY (route: oral) Med Classific ation: Central Nervous System Agents naltrexone 50 mg tablet 2-15 00:00: 00 06-01 23:59 :00 No [id number] 50 mg DAILY 50 mg DAILY (route: oral) Med Classific ation: Antidotes and other Reversal Agents Narcan 4 mg/actuatio n nasal spray 2-15 00:00: 00 06-01 23:59 :00 No [id number] Per instruc tions NEEDED Per instructio ns NEEDED (route: nasal) Med Classific ation: Antidotes and other Reversal Agents pyridoxine (vitamin B6) 25 mg tablet 2-15 00:00: 00 06-01 23:59 :00 No [id number] 25 mg DAILY 25 mg DAILY (route: oral) Med Classific ation: Electroly te Balance-N utritiona l Products Invega Sustenna 234 mg/1.5 mL intramuscul ar syringe 3-24 00:00: 00 Yes [id number] Per instruc tions MONTHLY Per instructio ns MONTHLY (route: intramuscu lar) Med Classific ation: Central Nervous System Agents Invega Sustenna 234 mg/1.5 mL intramuscul ar syringe 8-14 00:00: 00 11-30 23:59 :00 No [id number] 234 mg MONTHLY 234 mg MONTHLY (route: intramuscu lar) Med Classific ation: Central Nervous System Agents Celebrex 200 mg capsule 2021-02 0-26 00:00: 00 03-20 23:59 :00 No [id number] 200 mg 2 TIMES DAILY 200 mg 2 TIMES DAILY (route: oral) Alternate Route: NONE. Med Classific ation: Analgesic , Anti-infl ammatory or Antipyret ic Celebrex 200 mg capsule 1-30 00:00: 00 01-10 23:59 :00 No [id number] 200 mg DAILY 200 mg DAILY (route: oral) Alternate Route: NONE. Med Classific ation: Analgesic , Anti-infl ammatory or Antipyret ic docusate sodium 100 mg capsule 30 00:00: 00 01-29 23:59 :00 No [id number] 1 capsule 2 TIMES DAILY 1 capsule 2 TIMES DAILY (route: oral) Alternate Route: NONE. Med Classific ation: Gastroint estinal Therapy Agents Eliquis 2.5 mg tablet 30 00:00: 00 09-12 23:59 :00 No [id number] 1 tablet 2 TIMES DAILY 1 tablet 2 TIMES DAILY (route: oral) Med Classific ation: Hematolog ical Agents oxycodone 5 mg tablet 03-20 00:00: 00 04-18 23:59 :00 No [id number] Per instruc tions DIRECTED Per instructio ns DIRECTED (route: oral) Alternate Route: NONE. Med Classific ation: Analgesic , Anti-infl ammatory or Antipyret ic tramadol 50 mg tablet 03-20 00:00: 00 04-18 23:59 :00 No [id number] Per instruc tions DIRECTED Per instructio ns DIRECTED (route: oral) Med Classific ation: Analgesic , Anti-infl ammatory or Antipyret ic gabapentin 300 mg capsule 3-29 00:00: 00 01-10 23:59 :00 No [id number] 1 capsule 3 TIMES DAILY 1 capsule 3 TIMES DAILY (route: oral) Med Classific ation: Central Nervous System Agents cyclobenzap rine 5 mg tablet 7-27 00:00: 00 01-10 23:59 :00 No [id number] 1 tablet 3 TIMES DAILY 1 tablet 3 TIMES DAILY (route: oral) Med Classific ation: Locomotor System baclofen 10 mg tablet 2022-02 1-24 00:00: 00 03-30 23:59 :00 No [id number] 1 tablet DIRECTED 1 tablet DIRECTED (route: oral) Med Classific ation: Locomotor System docusate sodium 100 mg capsule 2022-02 00:00: 00 Yes [id number] 1 capsule NEEDED 1 capsule NEEDED (route: oral) Med Classific ation: Gastroint estinal Therapy Agents acetaminoph en 300 mg-codeine 30 mg tablet 2-09 00:00: 00 05-15 23:59 :00 No [id number] 1 tablet 3 TIMES DAILY 1 tablet 3 TIMES DAILY (route: oral) Med Classific ation: Analgesic , Anti-infl ammatory or Antipyret ic Paxlovid 300 mg (150 mg x 2)-100 mg tablets in a dose pack 09 00:00: 00 04-03 23:59 :00 No [id number] 3 tablet 2 TIMES DAILY 3 tablet 2 TIMES DAILY (route: oral) Med Classific ation: Anti-Infe ctive Agents tizanidine 4 mg tablet 03-30 00:00: 00 01-03 23:59 :00 No [id number] 1 tablet 3 TIMES DAILY 1 tablet 3 TIMES DAILY (route: oral) Med Classific ation: Locomotor System Depakote 500 mg tablet,kassandra yed release 3-23 00:00: 00 03-31 23:59 :00 No [id number] 1000 mg 2 TIMES DAILY 1000 mg 2 TIMES DAILY (route: oral) Med Classific ation: Central Nervous System Agents multivitami n tablet 15 00:00: 00 Yes [id number] 1 tablet DIRECTED 1 tablet DIRECTED (route: oral) Med Classific ation: Electroly te Balance-N utritiona l Products gabapentin 300 mg capsule 07-10 00:00: 00 Yes [id number] 2 capsule 3 TIMES DAILY 2 capsule 3 TIMES DAILY (route: oral) Med Classific ation: Central Nervous System Agents paliperidon e ER 1.5 mg tablet,exte nded release 24 hr 07-10 00:00: 00 11-22 23:59 :00 No [id number] 1 tablet DAILY 1 tablet DAILY (route: [...] AWARENESS FOR SAFETY AND WILL NOTIFY CLINICAL GIFT PACKER AND PHYSICIAN/PROVIDER WITH ANY CHANGE IN CONDITION. [code = SKILLED NURSE WILL MAINTAIN SITUATIONAL AWARENESS FOR SAFETY AND WILL NOTIFY CLINICAL GIFT PACKER AND PHYSICIAN/PROVIDER WITH ANY CHANGE IN CONDITION.] [...] RN]:</paragraph><paragraph>BELA NOTE 03/28/24 PATIENT WAS ADMITTED TO [facility] FOR HYPONATREMIA ON 03/25/24. PATIENT WAS TREATED [...] Date/Time Encounter Type Admission Type Attending [facility] Facility Care Department Encounter ID Discharge Date Discharge Status Discharge Condition Discharge Reason Percent Goals Met 2022-01-17 00:00:00 2024-05-05 00:00:00 Outpatient RECERTIFIC DAYANION GABBY [facility]ERRERA [facility] [id number] 34.38
[2024-04-02 17:33] LABS: MANUAL DIFF FLAG NO
[2024-04-02 18:09] LABS: Basophils Percent Auto 0.1 % (0-2); Eosinophils Percent Auto 0.2 % (0-4); Hematocrit 31.5 % (37.0-47.0); Hemoglobin 10.7 g/dl (12.0-16.0); Imm Gran Abs Auto 0.07 X10*3/uL (0.00-0.03); Imm Gran Pct Auto 0.5 % (0.0-0.4); Lymphocytes Absolute Auto 0.6 X10*3/uL (1.2-4.9); Lymphocytes Percent Auto 3.9 % (20-40); Mean Corpuscular Hemoglobin 25.5 pg (27.0-33.0); Mean Corpuscular Volume 75.2 fL (80.0-98.0); Mean Platelet Volume 10.3 fL (9.4-12.3); Monocytes Percent Auto 6.7 % (2-11); Neutrophils Absolute Auto 12.8 x10*3/uL (2.0-8.3); Neutrophils Percent Auto 88.6 % (45-73); Platelet Count 242 X10*3/uL (160-400); Red Blood Count 4.19 X10*6/uL (4.20-5.50); Red Cell Distribution Width 13.9 % (11.0-16.0); White Blood Count 14.5 X10*3/uL (4.8-10.8)
[2024-04-02 18:11] LABS: Anion Gap 10 (12-20); Blood Urea Nitrogen 12 mg/dL (9-16); Calcium 8.9 mg/dL (8.4-10.2); Carbon Dioxide 24 mmol/L (22-29); Chloride 102 mmol/L (96-108); Estimated Glomerular Filt Rate > 60; Glucose Random 72 mg/dL (60-115); Sodium 132 mmol/L (135-145)
[2024-04-02 18:31] LABS: TSH reflex Free T4 1.46 uIU/mL (0.32-4.0)
== END 2024-04-02 16:24 | disposition home or self-care (01) ==
LOC: HO.HHCL 16:23
PROVIDERS: Visit Provider General Practice
DX: E87.1 Hypo-osmolality and hyponatremia (principal); E66.813 Obesity, class 3; E66.01 Morbid (severe) obesity due to excess calories; Z68.41 Body mass index [BMI] 40.0-44.9, adult
CPT/HCPCS: 36415; 80048; 84443; 85025

== ENCOUNTER 2024-04-04 12:26 | Outpatient (REF) | payer OTHER, SELFPAY ==
--- NOTE | 2024-04-04 12:33 | ECG_ITS ---
Test Reason : r/o qtc prolongnation Blood Pressure : */* mmHG Vent. Rate : 121 BPM Atrial Rate : 121 BPM P-R Int : 150 ms QRS Dur : 74 ms QT Int : 292 ms P-R-T Axes : 66 31 46 degrees QTcB Int : 414 ms Sinus tachycardia Possible Left atrial enlargement Borderline ECG When compared with ECG of 25-Mar-2024 15:47, Vent. rate has increased by 42 bpm Referred By: Mirtha Nagy Electronically Signed By: BOOKER DICKEY MD
--- OUTSIDE RECORDS SUMMARY | 2024-04-04 12:52 | XMS_ITS | Encounter Summary ---
Author Organization [employer] Address [address] [place] [address] [address] [place] [address] Care Team Providers Care Stock Blender Name Role Phone Maddie Kim MD Primary Care Provider [phone] Encounter Details Date Type Department Care Team (Late Contact Info) Description 01/27/2022 Telephone [facility] MEDICINE [address] [place] [address] Maddie Kim MD [address] [place] [address] Social History Tobacco Use Types Packs/Day Years [...] AM EST Nutrition [facility] DIABETES/NUTRITION [address] [place] [address] Rosie Vick, SHANICE [address] [place] [address] documented as of this encounter Visit Diagnoses Not on filedocumented in this encounter Care Teams Stock Blender Relationship Specialty Start Date End Date Maddie Kim MD [address] [place] [address] PCP - General Family Medicine 07/12/20 Willie Gage 01/17/22 documented as of this encounter
--- OUTSIDE RECORDS SUMMARY | 2024-04-04 12:52 | XMS_ITS | Encounter Summary ---
Author Organization [employer] Address [address] [facility] [address]t [place] [address] Care Team Providers Care Customer Care Voice Consultant Name Role Phone Maddie Kim MD Primary Care Provider [phone] Reason for Visit * Reason Onset Date Comments Nutrition Medication Question 05/30/2023 Encounter Details Date Type Department Care Team ([facility] Contact Info) Description 05/30/2023 Telephone [facility] MEDICINE [address] [place], [place] [phone] Maddie Kim MD [address] [place], [place] [phone] Nutrition Medication Question Social History Tobacco Use [...] AM EST Nutrition [facility] DIABETES/NUTRITION [address] [place] [address] [place] [address] documented as of this encounter Visit Diagnoses Not on filedocumented in this encounter Additional Health Concerns Assessment Noted Time PHQ-9 Depression Total Score: 0 05/30/19 23 3:26 PM EDT documented as of this encounter Care Teams Customer Care Voice Consultant Relationship Specialty Start Date End Date Maddie Kim MD [address] [place] [address] PCP - General Family Medicine 07/12/20 Willie Gage 01/17/22 documented as of this encounter
--- OUTSIDE RECORDS SUMMARY | 2024-04-04 12:52 | XMS_ITS | Encounter Summary ---
Author Organization [employer] Address [address] [facility] [address]t [place] [address] Care Team Providers Care Machine Stacker Name Role Phone Maddie Kim MD Primary Care Provider [phone] Encounter Details Date Type Department Care Team ([facility] st Contact Info) Description 05/15/2023 Orders Only [facility] MEDICINE [address] [place], [place] [phone] Maddie Kim MD [address] [place], [place] [phone] Social History Tobacco Use Types Packs/Day Years [...] Info) Description 04/18/2024 9:00 AM EST Nutrition [facility] DIABETES/NUTRITION [address] [place] [address] [place] [address] documented as of this encounter Visit Diagnoses Not on filedocumented in this encounter Additional Health Concerns Assessment Noted Time PHQ-9 Depression Total Score: 0 05/30/19 23 3:26 PM EDT documented as of this encounter Care Teams Machine Stacker Relationship Specialty Start Date End Date Maddie Kim MD [address] [place] [address] PCP - General Family Medicine 07/12/20 Willie Gage 01/17/22 documented as of this encounter
--- OUTSIDE RECORDS SUMMARY | 2024-04-04 12:52 | XMS_ITS | Encounter Summary ---
Author Organization [employer] Address [address] [facility] [address] [place] [address] Care Team Providers Care Parking Attendant Name Role Phone Maddie Kim MD Primary Care Provider [phone] Encounter Details Date Type Department Care Team ([facility] st Contact Info) Description 07/29/2023 Orders Only [facility] MEDICINE [address] [place], [place] [phone] Maddie Kim MD [address] [place], [place] [phone] Social History Tobacco Use Types Packs/Day Years [...] [facility] DIABETES/NUTRITION [address] [place] [address] [place] [address] documented as of this encounter Visit Diagnoses Not on filedocumented in this encounter Additional Health Concerns Assessment Noted Time PHQ-9 Depression Total Score: 3 06/15/19 24 11:48 AM EDT documented as of this encounter Care Teams Parking Attendant Relationship Specialty Start Date End Date Maddie Kim MD [address] [place] [address] PCP - General Family Medicine 07/12/20 Willie Gage 01/17/22 documented as of this encounter
--- OUTSIDE RECORDS SUMMARY | 2024-04-04 12:52 | XMS_ITS | Data Portability ---
Author Organization [employer] Address [address] [place] [phone] Care Team Providers Care Recreation Aide Name Role Phone HIM [facility] OTHER [facility] OTHER [phone] Assessment Encounter Date Assessment Date Assessment LastModified by Organization Details LastModified Time 02/23/2024 02/23/2024 I provided real -time medical direction via phone for this encounter and was available for additional phone-based assistance as needed. I have reviewed and agree with the Assessment and Plan as documented by the Media Monitor. Patient given the opportunity to ask questions. [...] The patient is now voiding normally. Per paper cutter operator on the scene the patient has stable vitals and is afebrile currently after taking Tylenol. Known UTI and would continue to take the antibiotic prescribed as well as Tylenol. Discussed red flags. Medic request urine culture sent to [facility]. Allergies: Reviewed Not available 02/23/2024 16:20:42 02/26/2024 02/26/2024 I have reviewed and agree with the assessment and plan as documented by the paper cutter operator. I provided real-time medical direction for this encounter and was immediately available to provide additional phone-based assistance as needed. History as noted in EMR and by paper cutter operator. I would add / emphasize: Patient seen [...] recorded. Lab urinalysis , dipstick 2024 025 [facility], [address] [place] [address], [id number], 5 16:34:28 culture, urine 2024 025 [place] [facility], [address] [place], [address], 5 20:06:10 culture, urine 2024 025 [place] [facility], [address] [place], [address], 08:07:59 rapid flu (A+B) 2024 025 [facility], [address] [place] [address], [phone], 5 08:13:58 rapid SARS CoV 2 Ag, QL IA, respirator y specimen 2024 025 [facility], [address] [place] [address], [id number], 5 08:13:39 culture, urine 2024 025 [facility], [address], [address], [place], [address], 5 04:41:56 culture, urine 2024 025 [email or web address], [address] [facility], [place], [address], 15:02:19 urinalysis , dipstick 2024 025 [facility], [address] [place] [address], [phone], 07:58:13 Referral None recorded. Procedures None recorded. Surgeries None recorded. Imaging None recorded. Medication Orders Macrobid [address] [id number], [address] [place], [address], 21:48:16 Macrobid [address] [facility], [address] [place], [address], 5 22:18:22 Macrobid 100 mg capsule 2024 025 [facility], [address] [place], [address], 5 21:49:28 phenazopyr idine [address] [facility]1026, [address] [place], [address], 5 21:48:19 Patient TargetsNo targets recorded. Patient InstructionsNo instructions recorded. Reason for Referral None Reported. Results Created Date Observation Date Name Description Value Unit Range Abnormal Flag Note LastModifiedBy Organization Detail LastModifiedTime 02/22/19 25 02/26/2024 CULTU RE, URINE , ROUTI NE culture, urine, routine SEE NOTE CULTU RE, URINE , ROUTI NE Micro Numbe r: [id number] Test Statu s: Final Speci men Sourc e: Urine Speci men Quali ty: Adequ ate Resul t: No Growt h Not Available [facility] [address], [place], [address], 02/26/2024 04:41:56 02/25/1902/29/2024 URINE CULTU RE,CO MPREH ENSIV E urine culture,comp rehensive Final report Not Available [facility] ([facility]) [address] [place], [address], 02/29/2024 10:06:00 02/25/19 25 02/29/2024 URINE CULTU RE,CO MPREH ENSIV E result 1 COMMEN T No growt h in 36 - 48 hours . Not Available [facility] ([facility]) [address] [place], [address], 02/29/2024 10:06:00 03/23/19 25 03/24/2024 URINE CULTU RE, ROUTI NE urine culture, routine Final report Not Available [facility] ([facility]) [address] [place], [address], 03/24/2024 20:06:10 03/23/19 25 03/24/2024 URINE CULTU RE, ROUTI NE result 1 COMMEN T Cultu re shows less than 10,00 0 colon y formi ng units of bacte carter per angela liter of urine . This colon y count is not gener ally consi dered to be clini rubén signi fican t. Not Available [facility] ([facility]) [address] [facility], [place], [address], 03/24/2024 20:06:10 Result Notes None recorded. Medical Equipment None Reported. Allergies Allergen ID Allergen Name Allergen Category Reaction Reaction Severity Criticality Documentation Date Start Date Code Code System Note Provider Name and Address Organization Details Recorded Time 04273 Dilantin medicatio n Not available Not available Not available 02/22/2024 70926 0 RxNorm Not Available [facility] - production 14:48:20 33721 sulfameth oxazole medicatio n Not available Not available Not available 02/22/2024 84090 RxNorm Not Available [facility] 5 14:48:20 51506 trimethop rim medicatio n Not available Not available Not available 02/22/2024 40426 RxNorm Not Available [facility] 5 14:48:20 73814 Product containin g penicilli n and antibioti c (product) medicatio n Not available Not available Not available 02/22/2024 74972 05 SNOMED Not Available [facility] 5 14:48:20 43795 penicilli n G benzathin e medicatio n Not available Not available Not available 02/22/2024 7982 RxNorm Not Available [facility] 5 14:48:20 21450 penicilli n G procaine medicatio n Not available Not available Not available 02/22/2024 7983 RxNorm Not Available [facility] 5 14:48:20 Medications Name Sig Start Date [...] 5 102 /min 98.8 [degF] 14 /min 630926. 08 g 98 % 98 % 130 [...] [degF] 157.48 cm 19 /min 96 /min 519106. 712 g 125 mm[Hg] 82 mm[Hg] Not Available [facility] - production 5 14:39:11 Date Recorded Body temperature Heart rate Respiratory rate Oxygen saturation Oxygen saturation in Arterial blood by Pulse oximetry Systolic blood pressure Diastolic blood pressure Provider Name and Address Organization Details Last Updated DateTime 5 100.9 [degF] 90 /min 16 /min 95 % 95 % 123 mm[Hg] 85 mm[Hg] Not Available [facility] - production 5 11:22:20 Date Recorded Respiratory rate Body temperature Oxygen saturation Oxygen saturation in Arterial blood by Pulse oximetry Heart rate Systolic blood pressure Diastolic blood pressure Provider Name and Address Organization Details Last Updated DateTime 5 16 /min 98.2 [degF] 100 % 100 % 99 /min 124 mm[Hg] 84 mm[Hg] Not Available [facility] - production 5 13:03:07 Date Recorded Oxygen [...] SNOMED-CT Code Diagnosis ICD10 Code Diagnosis Note [id number] ARIEL YAO MD Main - [facility] [address] [place] [phone] 02/22/2024 21:29:01 02/23/2024 18:48:12 Urinary symptoms [id number] R39.9 Evaluation in the field was performed by my paper cutter operator colleague, as noted above, I provided [...] first dose was administer ed by the paper cutter operator. -To alleviate the burning sensation, a [...] or flank pain or any other concerns. [id number] Fawn Coelho MD Main - [facility] [address] [place] [phone] 02/23/2024 14:34:12 02/23/2024 18:56:04 Urinary symptoms [id number] R39.9 [id number] Aramis Gallardo MD Main - [facility] [address] [place] [phone] 02/26/2024 11:22:16 02/28/2024 11:56:29 Urinary symptoms [id number] R39.9 Fever [id number] R50.9 [id number] Jessica Hadley MD Main - [address] [phone] 03/23/2024 13:03:05 03/25/2024 16:45:46 Urinary symptoms [id number] R39.9 As noted, we were called to see this patient regarding concerns of urinary symptoms. Evaluation in the field was performed by my paper cutter operator colleague, as noted above, I provided [...] changes to consciousn ess, chest pain, dypsnea. [id number] Alisia Aguirre MD Main - [address] [phone] 04/01/2024 18:50:28 04/01/2024 19:49:17 Low back pain [id number] M54.50 48 year old female with a [...] of the lower extremitie s. Prior to [facility]'s visit she took an excedrin which is helping bring the paind own. Exam notable for normal vital signs, neurologic exam is grossly normal. Presentati on consistent with acute on chronic lumbar radiculopa thy, no red flags noted. I have reviewed and agree with the assessment and plan as documented by the paper cutter operator. I provided real-time medical direction for this [...] Fernandez Member ID Guarantor Name 02/22/2024 1 [facility] - DOS ON OR AFTER 2022 - DUAL ELIGIBLE - MCC OPTIONS AND ONE CARE (MEDICARE REPLACEMENT/ADV ANTAGE - HMO) Atiya Dotson [id number] Atiya Dotson 02/23/2024 1 [facility] - DOS ON OR AFTER 2022 - DUAL ELIGIBLE - MCC OPTIONS AND ONE CARE (MEDICARE REPLACEMENT/ADV ANTAGE - HMO) Atiya Dotson [id number] Atiya Dotson 02/26/2024 1 [facility] - DOS ON OR AFTER 2022 - DUAL ELIGIBLE - MCC OPTIONS AND ONE CARE (MEDICARE REPLACEMENT/ADV ANTAGE - HMO) Atiya Dotson [id number] Atiya Dotson 03/23/2024 1 [facility] - DOS ON OR AFTER 2022 - DUAL ELIGIBLE - MCC OPTIONS AND ONE CARE (MEDICARE REPLACEMENT/ADV ANTAGE - HMO) Atiya Dotson [id number] Atiya Dotson 04/01/2024 1 [facility] [employer] [facility] - DOS ON OR AFTER 2022 - DUAL ELIGIBLE - MCC OPTIONS AND ONE CARE (MEDICARE REPLACEMENT/ADV ANTAGE - HMO) Atiya Dotson [id number] Atiya Dotson Notes Date Note Type Note [...] any additional information to process this visit. Media Monitor Organization Information for [employer]DA [employer] Legal Name: [employer] Address: [address] [place] [address] Tree Scout: Benjy Haile MD [facility] No.: [id number] Media Monitor POC Test Results from [employer] Urine Dipstick (21:31:12) Urine leukocytes: 125+++ LEXIE [...] ...................... ...................... ...................... ...................... ...................... ...................... ......... Media Monitor Note From Summer Del Rio: Disp for [...] for a culture sample. Consulted with [facility] Dr. Yao. Dr. [...] to two days, schedule another appointment with [facility] for urine culture. Patient understood. Patient administered 100mgs of macrobid PO. Patient educated on red flags/risk factors. All times approx.. ...................... ...................... ...................... ...................... ...................... ...................... ......... [facility] Consulted: Ariel Yao ...................... ...................... ...................... ...................... ...................... ...................... ......... Disposition: Lizette ARIEL YAO MD [address] [facility],[address], [place], [phone], [employer] 02/22/2024 22:29:56 02/23/2024 text/html CRC Nurse Triage [...] ...................... ...................... ...................... ...................... ...................... ...................... ......... Media Monitor Note From Elias Garrison: Pt chief complaint today of fever/ uti symptoms going on for x 1 week. Pt was seen by [facility] personnel 1 day prior to her [facility] meeting today, urine dip was taken and positive for leukocytes and nitrates. [facility] medic was not able to acquire a [...] blurred vision. Pt has taken Tylenol before [facility] arrival for fever suppression.Nonneural focal exam, afebrile, vitals WNL, lungs are clear bilaterally. Benign abdominal assessment, no lower extremity edema noted. Pt is CAOX4 with GCS of 15. Urine culture acquired, no urine dip due to positivity yesterday.[facility] Fawn Coelho consultedPt informed, to continue taking her antibiotic which was prescribed prior to her [facility] visit today. Pt told to intake fluids and take 1 gram of Tylenol every 8 hours in a 24 hour period as needed for general aches and fever. Pt also educated on red flag S&S and informed to call emergency services if any present. ...................... ...................... ...................... ...................... ...................... ...................... ......... [facility] Consulted: Fawn Coelho ...................... ...................... ...................... ...................... ...................... ...................... ......... Disposition: Fulfilled Fawn Coelho MD [address] [facility],[address], [place], [address], [employer] 02/23/2024 16:21:22 02/26/2024 text/html CRC Nurse Triage [...] relief. She would like to be evaluated. Media Monitor Organization Information for Sandro Kearney [employer] Legal Name: [facility] Address: [address] [place] [address], Tree Scout: Jeff Bautista MD CLIA No.: [id number] Media Monitor POC Test Results from [employer] Rapid COVID antigen (11:21:01) COVID: - Rapid influenza antigen (11:21:02) Flu: - ...................... ...................... ...................... ...................... ...................... ...................... ......... Media Monitor Note From Sandro Kearney: This 48-year-old female [...] ...................... ...................... ...................... ...................... ...................... ......... [facility] Consulted: Aramis Gallardo ...................... ...................... ...................... ...................... ...................... ...................... ......... Disposition: Fulfilled Aramis Gallardo MD [address] [place] [address],[address], [place], [address], [employer] 02/28/2024 06:38:26 03/23/2024 text/html CRC Nurse Triage [...] Allergies Reviewed at 03/23/2024 - 12: Comments: Cross Tie Turner verified the Pt.'s name//address and phone number. [...] Tylenol for pain - Wellness visit requested Media Monitor Organization Information for Christel Sandro [employer] Legal Name: [facility] Address: [address] [place] [address], [place] [address], Tree Scout: Jeff COLON No.: [id number] Media Monitor POC Test Results from Sandro Kearney - ALS Urine Dipstick (13:07:26) Urine leukocytes: trace LEXIE Urine nitrites: - NIT Urine urobilinogen: - URO Urine protein: - PRO Urine pH: 5.0 pH Urine blood: - BLO Urine specific gravity: 1.010 SG Urine ketones: - KET Urine bilirubin: - MARCEL Urine glucose: - GLU ...................... ...................... ...................... ...................... ...................... ...................... ......... Media Monitor Note From Sandro Kearney: This 48-year-old female [...] ...................... ...................... ...................... ...................... ...................... ......... [facility] Consulted: Jessica Hadley ...................... ...................... ...................... ...................... ...................... ...................... ......... Disposition: Fulfilled Jessica Hadley MD [address] [place] [address],[address] [facility], [place], [address], [employer] 03/23/2024 13:41:47 04/01/2024 text/html CRC Nurse Triage [...] ...................... ...................... ...................... ...................... ...................... ...................... ......... Media Monitor Note From Inna Galvan: Sent to a [...] ...................... ...................... ...................... ...................... ...................... ......... [facility] Consulted: Alisia Aguirre ...................... ...................... ...................... ...................... ...................... ...................... ......... Disposition: Fulfilled Alisia Aguirre MD [address] [facility],[address] [facility], [place], [address], [employer] BALLARD 04/01/2024 19:22:50 OBGyn Episode No OBEpisode recorded.
--- OUTSIDE RECORDS SUMMARY | 2024-04-04 12:53 | XMS_ITS | Encounter Summary ---
Author Organization [employer] Address [address] [facility] [address] [place] [address] Care Team Providers Care Material Yard Clerk Name Role Phone Maddie Kim MD Primary Care Provider [phone] Encounter Details Date Type Department Care Team ([facility] st Contact Info) Description 06/13/2023 Orders Only [facility] MEDICINE [address] [place], [place] [phone] Maddie Kim MD [address] [place], [place] [phone] Social History Tobacco Use Types Packs/Day Years [...] 04/18/2024 9:00 AM EST Nutrition [facility] DIABETES/NUTRITION [address] [place] [address] [place] [address] documented as of this encounter Visit Diagnoses Not on filedocumented in this encounter Additional Health Concerns Assessment Noted Time PHQ-9 Depression Total Score: 0 05/30/19 23 3:26 PM EDT documented as of this encounter Care Teams Material Yard Clerk Relationship Specialty Start Date End Date Maddie Kim MD [address] [place] [address] PCP - General Family Medicine 07/12/20 Willie Gage 01/17/22 documented as of this encounter
--- OUTSIDE RECORDS SUMMARY | 2024-04-04 12:53 | XMS_ITS | Encounter Summary ---
Author Organization [employer] Address [address] [facility] [address] [place] [address] Care Team Providers Care Heating Element Winder Name Role Phone Maddie Kim MD Primary Care Provider [phone] Reason for Visit * Reason Comments Med Refill Encounter Details Date Type Department Care Team ([facility] st Contact Info) Description 04/12/2023 Refill [facility] [address] [place] [address] [phone] Isac Gonzalez MD [address] [place], [place] [phone] Chronic bilateral low back pain without sciatica [...] 04/18/2024 9:00 AM EST Nutrition [facility] DIABETES/NUTRITION [address] [place] [address] [place] [address] documented as of this encounter Visit Diagnoses Diagnosis Chronic bilateral low back pain without sciatica documented in this encounter Additional Health Concerns Assessment Noted Time PHQ-9 Depression Total Score: 0 05/30/19 23 3:26 PM EDT documented as of this encounter Care Teams Heating Element Winder Relationship Specialty Start Date End Date Maddie Kim MD [address] [place] [address] PCP - General Family Medicine 07/12/20 Willie Gage 01/17/22 documented as of this encounter
--- OUTSIDE RECORDS SUMMARY | 2024-04-04 12:53 | XMS_ITS | Clinical Summary ---
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 I think discuss portion sizes with gliding pilot instructor Assessment & Plan (01/29/2022 10:40 AM EST): [...] re-iterated that she can [facility] if she needs anything Assessment & Plan [...] Description 04/02/2024 3:30 PM EST Office Visit [facility] [address] [place] [address] Maddie Kim MD Schizoaffective disorder, bipolar type (CMS/HCC) (Primary Dx); Opioid abuse (CMS/HCC); Class 3 severe obesity with serious comorbidity and body mass index (BMI) of 40.0 to 44.9 in adult, unspecified obesity type (CMS/HCC); Dietary counseling; Exercise counseling; History of gastrectomy 04/02/2024 Travel 04/02/2024 Telephone [facility] [place] [address] Maddie Kim MD No Show 03/31/2024 Telephone [facility] [address] [place] [address] [place] [address] Maddie Kim MD Call Back Request 03/28/2024 Telephone [facility] [address] [place], [place] [address] [address] Maddie Kim MD FYI 03/28/2024 Patient Outreach [facility] [address] [place] [address] Maddie Kim MD Transition Of Care (Tcm) (HDF- Unscheduled- PATIENT REQ. A HDF WITHIN 7 DAYS AND ONLY WITH HER PCP) 03/28/2024 Telephone [facility] [address] [place], [place] [address] [address] Maddie Kim MD Hospital Follow-up 03/24/2024 Telephone [facility] [address] [place] [address] Maddie Kim MD 03/24/2024 Telephone [facility] [address] [place] [address] Sheila Rene, RN NTTS 03/20/[address] NUTRITION APPT REQUEST 03/04/2024 Telephone [facility] [address] [place] [address] Maddie Kim MD verbal order 03/04/2024 Refill [facility] [address] [place] [address] Maddie Kim MD 02/22/2024 Telephone [facility] [address] [place] [address] Maddie Kim MD 02/22/2024 Orders Only [facility] [address] [place] [phone] Maddie Kim MD 02/21/2024 Telephone [facility] [address] [place] [address] Maddie Kim MD FYI 02/21/2024 Refill [facility] [address] [place] [address] Maddie Kim MD 02/15/2024 Telephone [facility] [address] [place] [address] Maddie Kim MD FYI 02/15/2024 Refill [facility] [address] [place] [address] Maddie Kim MD 01/22/2024 Orders Only GENERIC EXTERNAL DATA DEPARTMENT Provider, Generic External Data 01/04/2024 2:20 PM EST Office Visit [facility] [address] [address] Amanda Pimentel MD Hypertensive urgency (Primary Dx) 01/04/[address] [address] Maddie Kim MD verbal order 01/04/2024 Telephone [facility] [address] [address] Bonita Fuentes RN [facility] triage 01/04/2024 Travel 01/04/[address] [address] Maddie Kim MD Results from Last 3 Months Immunizations Name Administration [...] Description 04/18/2024 9:00 AM EST Nutrition [facility] DIABETES/NUTRITION [address] [place] [address] Rosie Vick, RD [address] [place] [address] Health Maintenance Due Date Last Done Comments [...] Procedure Name Priority Date/Time Associated Diagnosis Comments CBC WITH AUTO DIFFERENTIAL Routine 04/02/2024 4:26 PM EST Class 3 severe obesity with serious comorbidity and body mass index (BMI) of 40.0 to 44.9 in adult, unspecified obesity type (CMS/HCC) TSH W/REFLEX TO FT4 Routine 04/02/2024 4 :26 PM EST Class 3 severe obesity with serious comorbidity and body mass index (BMI) of 40.0 to 44.9 in adult, unspecified obesity type (CMS/HCC) BASIC METABOLIC PANEL Routine 04/02/2024 4:26 PM EST Hyponatremia PAP SMEAR Routine 01/22/2024 8:03 AM EST [...] Recently Relevant to Health Maintenance Results * TSH W/Reflex to FT4 (04/02/2024 4:26 PM EST) TSH reflex Free T4 1.46 0.32 - 4.0 uIU/mL [facility] Blood Venous blood specimen / Unknown 04/02/2024 4:26 PM EST 04/02/2024 5:31 PM EST us Maddie Kim MD LAB BLOOD ORDERABLES Final Res ult [facility] [address] [place] [phone] * (ABNORMAL) CBC auto differential (04/02/2024 4:26 PM EST) White Blood Count 14.5(H) 4.8 - 10.8 X10*3/uL [facility] Red Blood Count 4.19(L) 4.20 - 5.50 X10*6/uL [facility] Hemoglobin 10.7(L) 12.0 - 16.0 g/dl [facility] Hematocrit 31.5(L) 37.0 - 47.0 % [facility] Mean Corpuscular Volume 75.2(L) 80.0 - 98.0 fL [facility] Mean Corpuscular Hemoglobin 25.5(L) 27.0 - 33.0 pg [facility] Mean Corpuscular HGB Conc 34.0 31.0 - 35.0 g/dl [facility] Red Cell Distribution Width 13.9 11.0 - 16.0 % [facility] Platelet Count 242 160 - 400 X10*3/uL [facility] Mean Platelet Volume 10.3 9.4 - 12.3 fL [facility] Neutrophils Percent Auto 88.6(H) 45 - 73 % [facility] Imm Gran Pct Auto 0.5(H) 0.0 - 0.4 % [facility] Lymphocytes Percent Auto 3.9(L) 20 - 40 % [facility] Monocytes Percent Auto 6.7 2 - 11 % [facility] Eosinophils Percent Auto 0.2 0 - 4 % [facility] Basophils Percent Auto 0.1 0 - 2 % [facility] NRBC Pct Auto 0.0 0.0 - 0.2 /100WBC [facility] Neutrophils Absolute Auto 12.8(H) 2.0 - 8.3 x10*3/uL [facility] Imm Gran Abs Auto 0.07(H) 0.00 - 0.03 X10*3/uL [facility] Lymphocytes Absolute Auto 0.6(L) 1.2 - 4.9 X10*3/uL [facility] Monocytes Absolute Auto 1.0 0.1 - 1.2 X10*3/uL [facility] Eosinophils Absolute Auto 0.0 0.0 - 0.4 X10*3/uL [facility] Basophils Absolute Auto 0.0 0.0 - 0.2 X10*3/uL [facility] NRBC Abs Auto 0.000 0.0 - 0.012 X10*3/uL [facility] Blood Venous blood specimen / Unknown 04/02/2024 4:26 PM EST 04/02/2024 5:31 PM EST us Maddie Kim MD LAB BLOOD ORDERABLES Final Res ult [facility] [address] [place] [address] [phone] * (ABNORMAL) Basic Metabolic Panel (04/02/2024 4:26 PM EST) Sodium 132(L) 135 - 145 mmol/L [facility] Potassium 4.0 3.3 - 5.1 mmol/L [facility] Chloride 102 96 - 108 mmol/L [facility] Carbon Dioxide 24 22 - 29 mmol/L [facility] Anion Gap 10(L) 12 - 20 [facility] Urea Nitrogen (BUN) 12 9 - 16 mg/dL [facility] Creatinine, Serum 0.74 0.5 - 1.4 mg/dL [facility] Estimated Glomerular Filt Rate >60 [facility] Comment:Chronic Kidney Disea se: Estimated GFR < 60 mL/min/1.15l1Mkbjuw Kidney Disease: Estimated GFR < 15 mL/min/1.73m2 Glucose 72 60 - 115 mg/dL [facility] Calcium 8.9 8.4 - 10.2 mg/dL [facility] Blood Venous blood specimen / Unknown 04/02/2024 4:26 PM EST 04/02/2024 5:31 PM EST us Maddie Kim MD LAB BLOOD ORDERABLES Final Res ult [facility] [address] [place] [address] [phone] * Pap Smear (01/22/2024 8:03 AM EST) 01/22/2024 8:03 AM EST 01/23/2024 11:00 AM EST Narrative [facility] - 01/25/2024 12:58 PM EST ----- ------- Name: Atiya Esparza ?Age/Sex: 48/F ? : 1975 Unit#: [id number] ?? Attend Dr: John Schmidt MD ?Re01/22/24 ?Status: DEP REF ? Location: HO.LNP ?Disch: ? ----- ------- SPEC : [id number] ?RECD: 01/23/24 ? STATUS: ??SOUT ? REQ NUM: [id number] ? MAMADOU: 01/22/24 ? SUBM DR: John [...] Copies To: ?? Maddie Kim ?? [address] [facility] ?? [place] [address] ?? [phone] ?? John Schmidt MD ?? [facility] ?? [address] ?? [place] [address] ?? [phone] ----- ------- Signed (signature on file) YASSINE Garcia (ASCP) 01/25/24 1258 ? ----- ------- ? END OF REPORT ? us Generic External Data Provider LAB CYTOLOGY HARJEET AVALOS Final Result [facility] [address] [facility] [place] [phone] * Lipid Panel, Standard (09/08/2023 8:43 AM EDT) Triglycerides 57 <150 mg/dL [facility] Comment:Desirable Triglyceri de: less than 150 mg/dLBorderline High Triglyceride 150-199 mg/dLHigh Triglyceride: 200-499 mg/dLVery High Triglyceride: greater than or equal to 5OO mg/dL Cholesterol 158 <200 mg/dL [facility] Comment:Desirable Cholestero l: less than 200 mg/dLBorderline High Cholesterol: 200-239 mg/dLHigh Cholesterol: greater than 239 mg/dL LDL Cholesterol Calculated 87 <100 mg/dL [facility] Comment:Desirable LDL: less than 100 mg/dLNear Optimal/Above Optimal LDL: 110- 129 mg/dLBorderline High LDL: 130-159 mg/dLHigh LDL: 160-189 mg/dLVery High LDL: greater than or equal to 190 mg/dL HDL Cholesterol 60 >40 mg/dL [facility] Comment:Desirable HDL: great er than 40 mg/dL Note: This HDL assay may give artificially low results in patients with liver disease. Blood Venous blood specimen / Unknown 09/08/2023 8:43 AM EDT 09/08/2023 11:09 AM EDT us Maddie Kim MD LAB BLOOD ORDERABLES Final Res ult [facility] [address] [place] [phone] * BI Mammogram Screening Tomosynthesis Bilateral (05/04/2023 4:02 PM EDT) Anatomical Region Laterality Modality Breast Bilateral Mammography 05/04/2023 4:02 PM EDT Narrative 05/26/2023 3:06 PM EDT ? [facility] ? [address] ?[place] [address] ? Mammography Report ? Signed ? Patient: Isaias,Atiya ?MR#: [id number] ? : 1975 ?Acct:[id number] ? Age/Sex: 47 / F ?ADM Date: 03/15/24 ? Loc: HO.MAMMO ? Attending Dr: Maddie Kim MD ? Ordering Physician: Maddie Kim ?Results: 1Negative ? Date of Service: 05/04/23 ?Follow Up: 1 Year From Orig ?? inal Mammogram ? Procedure(s): MM tomosynthesis screening BI ?? Accession Number(s): [id number] ? cc: Maddie Kim ? EXAMINATION: ?? [...] by Teresita Bey MD in OV> ? 04 1503 ? DD/ 1602 ? TD/TT: ? Manager Fine Dining: ? Procedure Note Donkellee, Image - [facility]/26/2023 [facility] [address] [place] [address] Mammography Report Signed Patient: Zain Esparza#: [id number] : 1975Acct:[id number] Age/Sex: 47 / FADM Date: 05/04/23 Loc: HO.MAMMO Attending Dr: Maddie Kim MD Ordering Physician: Jaja Kimults: 1Negative Date of Service: 05/04/23Follow Up: 1 Year From [facility] Mammogram Procedure(s): MM tomosynthesis screening BI Accession Number(s): [id number] cc: Maddie Kim EXAMINATION: MM SCREENING DIGITAL [...] in OV> 05/26/23 1503 DD/ 1602 TD/TT: Manager Fine Dining: Maddie Kim MD IMG BI PROCEDURES Final Result * HPV GENOTYPES 16,18/45 (12/20/2020 12:00 AM EDT) HPV 16 RNA NOT DETECTED NOT DETECTED [facility] HPV 18/45 RNA NOT DETECTED NOT DETECTED [facility] Comment: Methodology: Regional Sales Representative Mediated Amplification The analytical performance characteristics of this assay have been determined by [employer]. The modifications have not been cleared or approved by the FDA. This assay has been validated pursuant to the CLIA regulations and is used for clinical purposes. 12/20/2020 Maddie Kim MD LAB BLOOD ORDERABLES Final Res ult [facility] [address] from Last 3 Months or Most Recently Relevant to Health Maintenance [place] [address] [place] [address] - [employer] Care Teams Mounter Flutes And Piccolos Relationship Specialty Start Date End Date Maddie Kim MD [address] [place] [address] PCP - General Family Medicine 07/12/20 Willie Gage 01/17/22
--- OUTSIDE RECORDS SUMMARY | 2024-04-04 12:53 | XMS_ITS | Encounter Summary ---
Author Organization [employer] Address [address] [place] [address] 7t [place] [address] Care Team Providers Care Surgical Asst Name Role Phone Maddie Kim MD Primary Care Provider [phone] Encounter Details Date Type Department Care Team (Late Contact Info) Description 11/14/2022 Orders Only [facility] MEDICINE [address] [place], [place] [phone] Maddie Kim MD [address] [place], [place] [phone] Social History Tobacco Use Types Packs/Day Years [...] EST Nutrition [facility] DIABETES/NUTRITION [address] [place], [place] [phone] Rosie Vick [address] [place], [place] [phone] documented as of this encounter Visit Diagnoses Not on filedocumented in this encounter Additional Health Concerns Assessment Noted Time PHQ-9 Depression Total Score: 0 05/30/19 23 3:26 PM EDT documented as of this encounter Care Teams Surgical Asst Relationship Specialty Start Date End Date Maddie Kim MD [address] [place] [address] PCP - General Family Medicine 07/12/20 Willie Gage 01/17/22 documented as of this encounter
--- OUTSIDE RECORDS SUMMARY | 2024-04-04 12:53 | XMS_ITS | Encounter Summary ---
Author Organization [employer] Address [address] [facility] 7t [place] [address] Care Team Providers Care Lead Miner Name Role Phone Maddie Kim MD Primary Care Provider [phone] Reason for Visit * Reason Comments Transition Of Care (Tcm) HDF- Unschedule d- PATIENT REQ. A HDF WITHIN 7 DAYS AND ONLY WITH HER PCP Encounter Details Date Type Department Care Team ([facility] st Contact Info) Description 03/28/2024 Patient Outreach [facility] [address] [place], [place] [phone] Maddie Kim MD [address] [place], [place] [phone] Transition Of Care (Tcm) (HDF- Unscheduled- PATIENT [...] t he electric, gas, oil or water [employer] threatened to shut off services in your [...] 1:27 PM EST TC placed to patient [phone] in regards to below message. Patient did not answer, RN left requesting CB to red team nurses. RN will re-attempt tomorrow if no CB. documented in this encounter Miscellaneous Notes * Significant Event - Ruby Summers - 03/28/2024 1:34 PM EST 03/28/24 1332 Hospital Discharges and Admission for [facility] Type of Visit Hospital Admission Date of Admission/Visit 03/25/24 Date of Discharge 03/27/24 Facility [facility] Diagnosis Hyponatremia Disposition Discharged Home Follow-Up [...] Info) Description 04/18/2024 9:00 AM EST Nutrition [facility] DIABETES/NUTRITION [address] [place], [place] [phone] Rosie Vick, SHANICE [address] [place] [address] documented as of this encounter Visit Diagnoses Not on filedocumented in this encounter Additional Health Concerns Assessment Noted Time PHQ-9 Depression Total Score: 3 06/15/19 24 11:48 AM EDT documented as of this encounter Care Teams Lead Miner Relationship Specialty Start Date End Date Maddie Kim MD [address] [place] [address] PCP - General Family Medicine 07/12/20 Willie Gage 01/17/22 documented as of this encounter
--- OUTSIDE RECORDS SUMMARY | 2024-04-04 12:53 | XMS_ITS | Encounter Summary ---
Author Organization [employer] Address [address] [facility] 7t [place] [address] Care Team Providers Care User Experience Designer Name Role Phone Maddie Kim MD Primary Care Provider [phone] Encounter Details Date Type Department Care Team [...] 9:[address] [facility] DIABETES/NUTRITION [address] [place] [address] [place] [address] documented as of this encounter Visit Diagnoses Not on filedocumented in this encounter Additional Health Concerns Assessment Noted Time PHQ-9 Depression Total Score: 3 06/15/19 24 11:48 AM EDT documented as of this encounter Care Teams User Experience Designer Relationship Specialty Start Date End Date Maddie Kim MD [address] [place] [address] PCP - General Family Medicine 07/12/20 Willie Gage 01/17/22 documented as of this encounter
--- OUTSIDE RECORDS SUMMARY | 2024-04-04 12:53 | XMS_ITS | Encounter Summary ---
Author Organization [employer] Address [address] [facility] 7t [place] [address] Care Team Providers Care Paraeducator Name Role Phone Maddie Kim MD Primary Care Provider Encounter Details Date Type Department Care Team ([facility] st Contact Info) Description 02/22/2024 Orders Only [facility] MED[facility]INE [address] [place], [place] [phone] Maddie Kim MD [address] [place], [place] [phone] Social History Tobacco Use Types Packs/Day Years [...] EST Nutrition [facility] DIABETES/NUTRITION [address] [place] [address] [place] [address] documented as of this encounter Visit Diagnoses Not on filedocumented in this encounter Additional Health Concerns Assessment Noted Time PHQ-9 Depression Total Score: 3 06/15/19 24 11:48 AM EDT documented as of this encounter Care Teams Paraeducator Relationship Specialty Start Date End Date Maddie Kim MD [address] [place] [address] PCP - General Family Medicine 07/12/20 Willie Gage 01/17/22 documented as of this encounter
--- OUTSIDE RECORDS SUMMARY | 2024-04-04 12:53 | XMS_ITS | Encounter Summary ---
Author Organization [employer] Address [address] [facility] 7t [place] [address] Care Team Providers Care Oilseed Meat Presser Name Role Phone Maddie Kim MD Primary Care Provider [phone] Reason for Visit * Reason Onset Date Comments Hospital Follow-up 03/28/2024 Encounter Details Date Type Department Care Team ([facility] Contact Info) Description 03/28/2024 Telephone [facility] [address] [place], [place] [phone] Maddie Kim MD [address] [place], [place] [phone] Hospital Follow-up Social History Tobacco Use Types [...] from pt requesting a HDF appt. Hospital: [facility] Date of admission: 03/24/24 Discharge date: 03/27/24 Diagnosed: Hyponatremia *Send message to [facility] Clinical Care Coordinators documented in this encounter Plan of Treatment Upcoming Encounters Date Type Department Care Team (Late st Contact Info) Description 04/18/2024 9:00 AM EST Nutrition [facility] DIABETES/NUTRITION [address] [place] [address] [place] [address] documented as of this encounter Visit Diagnoses Not on filedocumented in this encounter Additional Health Concerns Assessment Noted Time PHQ-9 Depression Total Score: 3 06/15/19 24 11:48 AM EDT documented as of this encounter Care Teams Oilseed Meat Presser Relationship Specialty Start Date End Date Maddie Kim MD [address] [place] [address] PCP - General Family Medicine 07/12/20 Willie Gage 01/17/22 documented as of this encounter
--- OUTSIDE RECORDS SUMMARY | 2024-04-04 12:53 | XMS_ITS | Encounter Summary ---
Author Organization [employer] Address [address] [place] [address] 7t [place] [address] Care Team Providers Care Company Accountant Name Role Phone Maddie Kim MD Primary Care Provider [phone] Reason for Visit * Reason Onset Date Comments Durable Medical Equipment 03/02/2022 Encounter Details Date Type Department Care Team ([facility] st Contact Info) Description 03/02/2022 Telephone [facility] MEDICINE [address] [place] [phone] Shayna Pritchett, MAJO Durable Medical Equipment Social [...] send to [facility] Please contact pt at [phone] documented in this encounter Plan of Treatment Upcoming Encounters Date Type Department Care Team (Late st Contact Info) Description 04/18/2024 9:00 AM EST Nutrition [facility] DIABETES/NUTRITION [address] [place] [address] [place] [address] documented as of this encounter Visit Diagnoses Not on filedocumented in this encounter Care Teams Company Accountant Relationship Specialty Start Date End Date Maddie Kim MD [address] [place] [address] PCP - General Family Medicine 07/12/20 Willie Gage 01/17/22 documented as of this encounter
--- OUTSIDE RECORDS SUMMARY | 2024-04-04 12:53 | XMS_ITS | Continuity of Care Document ---
Author Organization [employer] Address [address] [place] [address] Care Team Providers Care Bottle Label Inspector Name Role Phone HIM [facility] OTHER [facility] OTHER Assessment No assessment recorded. Plan of [...] Name and Address Organization Details Recorded Time 52203 Dilantin medicatio n Not available Not available Not available 02/22/2024 98079 0 RxNorm Not Available [facility] - production 14:48:20 14954 sulfameth oxazole medicatio n Not available Not available Not available 02/22/2024 08758 [facility] 92492 trimethop rim medicatio n Not available Not available Not available 02/22/2024 12538 Rx[facility] 14:48:20 27596 Product containin g penicilli n and antibioti c (product) medicatio n Not available Not available Not available 02/22/2024 98563 05 SNOMED Not Available [facility] 5 14:48:20 82176 penicilli n G benzathin e medicatio n Not available Not available Not available 02/22/2024 7982 RxNorm Not Available [facility] 5 14:48:20 83077 penicilli n G procaine medicatio n Not [...] SNOMED-CT Code Diagnosis ICD10 Code Diagnosis Note [id number] Jessica Hadley MD Main - [facility] [address] [place] [address] 03/23/2024 13:03:05 03/25/2024 16:45:46 Urinary symptoms [id number] R39.9 As noted, we were called to see this patient regarding concerns of urinary symptoms. Evaluation in the field was performed by my marketing compliance manager colleague, as noted above, I provided [...] changes to consciousn ess, chest pain, dypsnea. 187[address] Alisia Agurire MD [facility] - [address] [address] 04/01/2024 18:50:28 04/01/2024 19:49:17 Low back pain [id number] M54.50 48 year old female with a [...] of the lower extremitie s. Prior to [facility]'s visit she took an excedrin which is helping bring the paind own. Exam notable for normal vital signs, neurologic exam is grossly normal. Presentati on consistent with acute on chronic lumbar radiculopa thy, no red flags noted. I have reviewed and agree with the assessment and plan as documented by the marketing compliance manager. I provided real-time medical direction for [...] Fernandez Member ID Guarantor Name 04/01/2024 1 [facility] - DOS ON OR AFTER 2022 - DUAL ELIGIBLE - CARE HOME OPTIONS AND ONE CARE (MEDICARE REPLACEMENT/ADV ANTAGE - HMO) Atiya Dotson [id number] Atiya Dotson Notes Date Note Type Note [...] ...................... ...................... ...................... ...................... ...................... ...................... ......... Regional Manager Note From Inna Galvan: Sent to a [...] ...................... ...................... ...................... ...................... ...................... ...................... ......... [facility] Consulted: Alisia Aguirre ...................... ...................... ...................... ...................... ...................... ...................... ......... Disposition: Lizette Aguirre MD [address] [facility],[address], [place], [address], [employer] 04/01/2024 19:22:50 OBGyn Episode No OBEpisode recorded.
--- OUTSIDE RECORDS SUMMARY | 2024-04-04 12:53 | XMS_ITS | Encounter Summary ---
Author Organization [employer] Address [address] [place] [address] 7t [place] [address] Care Team Providers Care Manufacturing Engineer Paint Name Role Phone Maddie Kim MD Primary Care Provider [phone] Reason for Visit * Reason Onset Date Comments FYI 03/28/2024 Encounter Details Date Type Department Care Team ([facility] Contact Info) Description 03/28/2024 Telephone [facility] MEDICINE [address] [place], [place] [phone] Maddie Kim MD 230 [place], [place] [phone] Social History Tobacco Use Types Packs/Day Years [...] Gage stating that Pt was seen at [facility] and she also said that they took pt off Med hydroCHLOROthiazide (HYDRODiuril) 25 MG tablet If any questions contact Lauren at [phone] documented in this encounter Plan of Treatment Upcoming Encounters Date Type Department Care Team (Late st Contact Info) Description 04/18/2024 9:00 AM EST Nutrition [facility] DIABETES/NUTRITION [address] [place] [address] [place] [address] documented as of this encounter Visit Diagnoses Not on filedocumented in this encounter Additional Health Concerns Assessment Noted Time PHQ-9 Depression Total Score: 3 06/15/19 24 11:48 AM EDT documented as of this encounter Care Teams Manufacturing Engineer Paint Relationship Specialty Start Date End Date Maddie Kim MD 230 [place] [address] PCP - General Family Medicine 07/12/20 Willie Gage 01/17/22 documented as of this encounter
--- OUTSIDE RECORDS SUMMARY | 2024-04-04 12:53 | XMS_ITS | Encounter Summary ---
Author Organization [employer] Address [address] [place] [address] 7t [place] [address] Care Team Providers Care Agriculture Teacher Name Role Phone Maddie Kim MD Primary Care Provider [phone] Encounter Details Date Type Department Care Team ([facility] Contact Info) Description 07/05/2022 Orders Only [facility] MEDICINE [address] [place], [place] [phone] Maddie Kim MD 230 [place], [place] [phone] Social History Tobacco Use Types Packs/Day Years [...] 04/18/2024 9:00 AM EST Nutrition [facility] DIABETES/NUTRITION 230 [place], [place] [phone] Rosie Vick [address] [place], [place] [phone] documented as of this encounter Visit Diagnoses Not on filedocumented in this encounter Additional Health Concerns Assessment Noted Time PHQ-9 Depression Total Score: 0 05/30/19 23 3:26 PM EDT documented as of this encounter Care Teams Agriculture Teacher Relationship Specialty Start Date End Date Maddie Kim MD 230 [place] [address] PCP - General Family Medicine 07/12/20 Willie Gage 01/17/22 documented as of this encounter
--- OUTSIDE RECORDS SUMMARY | 2024-04-04 12:53 | XMS_ITS | Encounter Summary ---
Author Organization [employer] Address [address] [place] [address] 7t [place] [address] Care Team Providers Care Ic Designer Standard Cells Name Role Phone Maddie Kim MD Primary Care Provider [phone] Encounter Details Date Type Department Care Team ([facility] Contact Info) Description 03/30/2022 Abstract [facility] MEDICINE [address] [place], [place] [phone] Maddie Kim MD 230 [place], [place] [phone] Social History Tobacco Use Types Packs/Day Years [...] Description 04/18/2024 9:00 AM EST Nutrition [facility] DIABETES/NUTRITION [address] [place] [address] [place] [address] documented as of this encounter Visit Diagnoses Not on filedocumented in this encounter Care Teams Ic Designer Standard Cells Relationship Specialty Start Date End Date Maddie Kim MD [address] [place] [address] PCP - General Family Medicine 07/12/20 Willie Gage 01/17/22 documented as of this encounter
--- OUTSIDE RECORDS SUMMARY | 2024-04-04 12:53 | XMS_ITS | Encounter Summary ---
Author Organization [employer] Address [address] [facility] 7t [place] [address] Care Team Providers Care Trap Setter Name Role Phone Maddie Kim MD Primary Care Provider [phone] Reason for Visit * Reason Onset Date Comments NUTRITION APPT REQUEST 03/20/2024 Encounter Details Date Type Department Care Team ([facility] Contact Info) Description 03/20/2024 Telephone [facility] MEDICINE [address] [place] [address] [place], [place] [phone] NUTRITION APPT REQUEST Social History Tobacco Use [...] 9:00 AM EST Nutrition [facility] DIABETES/NUTRITION [address] [place] [address] [place] [address] documented as of this encounter Visit Diagnoses Not on filedocumented in this encounter Additional Health Concerns Assessment Noted Time PHQ-9 Depression Total Score: 3 06/15/19 24 11:48 AM EDT documented as of this encounter Care Teams Trap Setter Relationship Specialty Start Date End Date Maddie Kim MD 230 [place] [address] PCP - General Family Medicine 07/12/20 Willie Gage 01/17/22 documented as of this encounter
--- OUTSIDE RECORDS SUMMARY | 2024-04-04 12:53 | XMS_ITS | Data Portability ---
Author Organization [place] - [facility] Pamella Flynn - [facility] - [facility] Address [address] [place] [address] Care Team Providers Care Truck Driver'S Offsider Name Role Phone ALEXIS RANGEL Primary Care [...] By Organization Details Last Modified Time 07/24/2019 [id number] FINAL Reason: GI BLEEDING EXAM# DEPT/EXAM EXAM DATE TIME [id number] CCT - Angio Abd Plevis W-WO Contrast [...] of constipation. Report Read by: ANTONINO WEBSTER [id number] on Jun 06 2019 4:55P Transcribed by: on Jun 06 2019 4:44P Report Electronically Signed by: DR. ANTONINO WEBSTER on: Jun 06 2019 4:55P [id number] [email or web address] Not available 07/24/2019 14:04:23 Reason for Referral None Reported. Problems Name Problem SNOMED Code Status Onset Date Resolution Date Notes Provider Name and Address Organization Details Recorded Time Diarrhea 23222317 Active 2019 MD María Elena Joe [address], [place], [address], [facility] 0 14:09:16 Hematochezia 346068869 Active 2019 MD María Elena Joe [address], [place], [address], [facility] 0 14:09:25 Problem Notes None recorded. Medical Equipment None Reported. Allergies Allergen ID Allergen Name Allergen Category Reaction Reaction Severity Criticality Documentation Date Start Date Code Code System Note Provider Name and Address Organization Details Recorded Time 30600 Product containin g penicilli n and antibioti c (product) medicatio n Not available Not available Not available 07/24/2019 09724 05 SNOMED MD María Elena Joe [address], [place], [address], [facility] 0 14:04:50 70463 Dilaudid medicatio n Not available Not available Not available 07/24/2019 24962 3 RxNorm MD María Elena Joe [address], [place], [address], [facility] 0 14:04:55 Medications Name Sig Start [...] LastModified Time Tobacco Smoking Status Former Smoker Gulsahn Lowry MD [address], [place], [address], [facility] 07/24/2019 14:06:56 What Is [...] SNOMED-CT Code Diagnosis ICD10 Code Diagnosis Note [id number] Gulshan Lowry MD JYamin - [facility] - [facility] [address] [place] [address] 07/24/2019 08:51:48 07/28/2019 10:40:36 Hematochezia 554538447 K92.1 Chronic diarrhea 0531760 09 K52.9 Health Concerns Section Related Observation LastModified by Organization Detai ls LastModified Time None Recorded Concern Status LastModified by Organization Details LastModified Time None Recorded Advance Directives Directive None Recorded Payers Encounter Date Sequence Insurance Name Policy Number Policy Fernandez Covered Member ID Fernandez Member ID Guarantor Name 07/24/2019 1 [place]IC[place] [employer] Atiya Y Isaias [id number] Atiya Y Luna 07/24/2019 2 [place] [facility] Atiya Frost Luna [id number] Atiya Frost Isaias Notes Date Note Type [...] abdominal pain as well. Gulshan Lowry MD [address] [place] [address],[address], [place], [address], [facility] 07/24/2019 14:21:54 OBGyn Episode No OBEpisode recorded.
--- OUTSIDE RECORDS SUMMARY | 2024-04-04 12:53 | XMS_ITS | Encounter Summary ---
Author Organization [employer] Address [address] [facility] 7t [place] [address] Care Team Providers Care Accounts Payable Manager Name Role Phone Maddie Kim MD Primary Care Provider [phone] Reason for Visit * Reason Onset Date Comments Medication Question 07/05/2022 Encounter Details Date Type Department Care Team ([facility] Contact Info) Description 07/05/2022 Telephone [facility] MEDICINE [address] [place], [place] [phone] Maddie Kim MD [address] [place], [place] [phone] Medication Question Social History Tobacco Use Types [...] Info) Description 04/18/2024 9:00 AM EST Nutrition [facility] DIABETES/NUTRITION [address] [place] [address] [place] [address] documented as of this encounter Visit Diagnoses Diagnosis History of arthroplasty of right knee Arthropathy Unspecified arthropathy, site unspecified documented in this encounter Additional Health Concerns Assessment Noted Time PHQ-9 Depression Total Score: 0 05/30/19 23 3:26 PM EDT documented as of this encounter Care Teams Accounts Payable Manager Relationship Specialty Start Date End Date Maddie Kim MD [address] [place] [address] PCP - General Family Medicine 07/12/20 Willie Gage 01/17/22 documented as of this encounter
--- OUTSIDE RECORDS SUMMARY | 2024-04-04 12:53 | XMS_ITS | Encounter Summary ---
Author Organization [employer] Address [address] [facility] 7t [place] [address] Care Team Providers Care Legal Billing Analyst Name Role Phone Maddie Kim MD Primary Care Provider Reason for Visit * Reason Onset Date Comments Verbal orders/ Medication question 05/08/2023 Encounter Details Date Type Department Care Team ([facility] Contact Info) Description 05/08/2023 Telephone [facility] MEDICINE [address] [place], [place] [phone] Maddie Kim MD 230 [place], [place] [phone] Verbal orders/ Medication question Social History Tobacco [...] 05/09/2023 9:54 AM EDT [facility] and gave VO for usp for 3 times a week. Pt medications were also reconciled and pt reports using Viviscal OTC for hair growth and Calcium + VitD supplements. * Telephone Encounter - Toña Castillo - 05/08/2023 4:20 PM EDT Tc from [facility] requesting some verbal orders reconciliation for skill nursing 3 times a week. [facility] is also requesting a call back to speak about patient's medications. documented in this encounter Plan of Treatment Upcoming Encounters Date Type Department Care Team (Late st Contact Info) Description 04/18/2024 9:00 AM EST Nutrition [facility] DIABETES/NUTRITION [address] [place] [address] [place] [address] documented as of this encounter Visit Diagnoses Not on filedocumented in this encounter Additional Health Concerns Assessment Noted Time PHQ-9 Depression Total Score: 0 05/30/19 23 3:26 PM EDT documented as of this encounter Care Teams Legal Billing Analyst Relationship Specialty Start Date End Date Maddie Kim MD [address] [place] [address] PCP - General Family Medicine 07/12/20 Willie Gage 01/17/22 documented as of this encounter
--- OUTSIDE RECORDS SUMMARY | 2024-04-04 12:53 | XMS_ITS | Encounter Summary ---
Author Organization [employer] Address [address] [place] [address] 7t [place] [address] Care Team Providers Care Polarity Tester Name Role Phone Maddie Kim MD Primary Care Provider [phone] Reason for Visit * Reason Comments Follow-up Encounter Details Date Type Department Care Team (Latest Contact Info) Description 04/02/2024 3:30 PM EST Office Visit [facility] MEDICINE [address] [place], [place] [phone] Maddie Kim MD [address] [place], [place] [phone] Schizoaffective disorder, bipolar type (CMS/HCC) (Primary Dx); [...] [facility] DIABETES/NUTRITION 230 [place], [place] [phone] Rosie Vick, RD 230 [place], [place] [phone] documented as of this encounter Procedures Procedure Name Priority Date/Time Associated Diagnosis Comments TSH W/REFLEX TO FT4 Routine 04/02/2024 4 :26 PM EST Class 3 severe obesity with serious comorbidity and body mass index (BMI) of 40.0 to 44.9 in adult, unspecified obesity type (CMS/HCC) CBC WITH AUTO DIFFERENTIAL Routine 04/02/2024 4:26 PM EST Class 3 severe obesity with serious comorbidity and body mass index (BMI) of 40.0 to 44.9 in adult, unspecified obesity type (CMS/HCC) documented in this encounter Results * (ABNORMAL) CBC auto differential (04/02/2024 4:26 PM EST) White Blood Count 14.5(H) 4.8 - 10.8 X10*3/uL [facility] Red Blood Count 4.19(L) 4.20 - 5.50 X10*6/uL [facility] Hemoglobin 10.7(L) 12.0 - 16.0 g/dl [facility] Hematocrit 31.5(L) 37.0 - 47.0 % [facility] Mean Corpuscular Volume 75.2(L) 80.0 - 98.0 fL [facility] Mean Corpuscular Hemoglobin 25.5(L) 27.0 - 33.0 pg [facility] Mean Corpuscular HGB Conc 34.0 31.0 - 35.0 g/dl [facility] Red Cell Distribution Width 13.9 11.0 - 16.0 % [facility] Platelet Count 242 160 - 400 X10*3/uL [facility] Mean Platelet Volume 10.3 9.4 - 12.3 fL [facility] Neutrophils Percent Auto 88.6(H) 45 - 73 % [facility] Imm Gran Pct Auto 0.5(H) 0.0 - 0.4 % [facility] Lymphocytes Percent Auto 3.9(L) 20 - 40 % [facility] Monocytes Percent Auto 6.7 2 - 11 % [facility] Eosinophils Percent Auto 0.2 0 - 4 % [facility] Basophils Percent Auto 0.1 0 - 2 % [facility] NRBC Pct Auto 0.0 0.0 - 0.2 /100WBC [facility] Neutrophils Absolute Auto 12.8(H) 2.0 - 8.3 x10*3/uL [facility] Imm Gran Abs Auto 0.07(H) 0.00 - 0.03 X10*3/uL [facility] Lymphocytes Absolute Auto 0.6(L) 1.2 - 4.9 X10*3/uL [facility] Monocytes Absolute Auto 1.0 0.1 - 1.2 X10*3/uL [facility] Eosinophils Absolute Auto 0.0 0.0 - 0.4 X10*3/uL [facility] Basophils Absolute Auto 0.0 0.0 - 0.2 X10*3/uL [facility] NRBC Abs Auto 0.000 0.0 - 0.012 X10*3/uL [facility] Blood Venous blood specimen / Unknown 04/02/2024 4:26 PM EST 04/02/2024 5:31 PM EST us Maddie Kim MD LAB BLOOD ORDERABLES Final Res ult [facility] [address] [place] [address] [phone] * TSH W/Reflex to FT4 (04/02/2024 4:26 PM EST) TSH reflex Free T4 1.46 0.32 - 4.0 uIU/mL [facility] Blood Venous blood specimen / Unknown 04/02/2024 4:26 PM EST 04/02/2024 5:31 PM EST us Maddie Kim MD LAB BLOOD ORDERABLES Final Res ult [facility] [address] [place] [address] [phone] documented in this encounter Visit Diagnoses Diagnosis Schizoaffective disorder, [...] documented as of this encounter Care Teams Polarity Tester Relationship Specialty Start Date End Date Maddie Kim MD [address] [place] [address] PCP - General Family Medicine 07/12/20 Willie Gage 01/17/22 documented as of this encounter
--- OUTSIDE RECORDS SUMMARY | 2024-04-04 12:53 | XMS_ITS | Encounter Summary ---
Author Organization [employer] Address [address] [facility] 7t [place] [address] Care Team Providers Care Carpentry Instructor Name Role Phone Maddie Kim MD Primary Care Provider [phone] Reason for Visit * Reason Onset Date Comments Call Back Request 07/26/2023 Encounter Details Date Type Department Care Team ([facility] Contact Info) Description 07/26/2023 Telephone [facility] MEDICINE [address] [place] [address] Maddie Kim MD [address] [place], [place] [phone] Call Back Request Social History Tobacco Use [...] 07/27/2023 9:31 AM EDT Tc returned to [facility], questioning pt.'s risperidone inj rx on med list they received. Looking back in chart, this was discontinued after inpatient hosp in 2020 due to noncompliance with injections. This was the last time it was prescribed. [facility] off our med list for accuracy, thank you! * Telephone Encounter - Zach Carlson - 07/26/2023 4:12 PM EDT Tc from [facility] with Willie Gage requesting a call back for a med reconciliation. Please contact Georgie at [phone]. documented in this encounter Plan of Treatment Upcoming Encounters Date Type Department Care Team (Late st Contact Info) Description 04/18/2024 9:00 AM EST Nutrition [facility] DIABETES/NUTRITION [address] [place], [place] [phone] Rosie Vick, RD [address] [place], [place] [phone] documented as of this encounter Visit Diagnoses Not on filedocumented in this encounter Additional Health Concerns Assessment Noted Time PHQ-9 Depression Total Score: 3 06/15/19 24 11:48 AM EDT documented as of this encounter Care Teams Carpentry Instructor Relationship Specialty Start Date End Date Maddie Kim MD [address] [place] [address] PCP - General Family Medicine 07/12/20 Willie Gage 01/17/22 documented as of this encounter
--- OUTSIDE RECORDS SUMMARY | 2024-04-04 12:53 | XMS_ITS | Encounter Summary ---
Author Organization [employer] Address [address] [place] [address] 7t [place] [address] Care Team Providers Care Flower Maker Name Role Phone Maddie Kim MD Primary Care Provider [phone] Reason for Visit * Reason Onset Date Comments FYI 02/15/2024 Encounter Details Date Type Department Care Team ([facility] Contact Info) Description 02/15/2024 Telephone [facility] MEDICINE 230 [place], [place] [phone] Maddie Kim MD 230 [place], [place] [phone] FY Social History Tobacco Use Types Packs/Day [...] any questions you can contact Lauren at [phone]. documented in this encounter Plan of Treatment Upcoming Encounters Date Type Department Care Team (Late st Contact Info) Description 04/18/2024 9:00 AM EST Nutrition [facility] DIABETES/NUTRITION [address] [place] [address] [place] [address] documented as of this encounter Visit Diagnoses Not on filedocumented in this encounter Additional Health Concerns Assessment Noted Time PHQ-9 Depression Total Score: 3 06/15/19 24 11:48 AM EDT documented as of this encounter Care Teams Flower Maker Relationship Specialty Start Date End Date Maddie Kim MD [address] [place] [address] PCP - General Family Medicine 07/12/20 Willie Gage 11/29/22 documented as of this encounter
--- OUTSIDE RECORDS SUMMARY | 2024-04-04 12:53 | XMS_ITS | Encounter Summary ---
Author Organization [employer] Address [address] [facility] 7t [place] [address] Care Team Providers Care Safety Patrol Officer Name Role Phone Maddie Kim MD Primary Care Provider [phone] Reason for Visit * Reason Onset Date Comments Med Refill 05/10/2023 Encounter Details Date Type Department Care Team ([facility] st Contact Info) Description 05/10/2023 Refill [facility] MEDICINE 230 [place], [place] [phone] Maddie Kim MD 230 [place], [place] [phone] Chronic bilateral low back pain without sciatica [...] EST Nutrition [facility] DIABETES/NUTRITION 230 [place] [address] [place] [address] documented as of this encounter Visit Diagnoses Diagnosis Chronic bilateral low back pain without sciatica documented in this encounter Additional Health Concerns Assessment Noted Time PHQ-9 Depression Total Score: 0 05/30/19 23 3:26 PM EDT documented as of this encounter Care Teams Safety Patrol Officer Relationship Specialty Start Date End Date Maddie Kim MD 230 [place] [address] PCP - General Family Medicine 07/12/20 Willie Gage 01/17/22 documented as of this encounter
--- OUTSIDE RECORDS SUMMARY | 2024-04-04 12:53 | XMS_ITS | Encounter Summary ---
Author Organization [employer] Address [address] [facility] 7t [place] [address] Care Team Providers Care Poleyard Supervisor Name Role Phone Maddie Kim MD Primary Care Provider [phone] Reason for Visit * Reason Onset Date Comments Durable Medical Equipment 03/16/2022 Encounter Details Date Type Department Care Team ([facility] st Contact Info) Description 03/16/2022 Telephone [facility] MEDICINE [address] [place], [place] [phone] Maddie Kim MD [address] [place], [place] [phone] Durable Medical Equipment Social History Tobacco Use [...] it can fax to her landlord at [phone]. She would like the script to be to the [facility] [employer] [place], [address] [place] [address] If any concerns please contact pt at [phone] documented in this encounter Plan of Treatment Upcoming Encounters Date Type Department Care Team ([facility] st Contact Info) Description 04/18/2024 9:00 AM EST Nutrition [facility] DIABETES/NUTRITION [address] [place] [address] [place] [address] documented as of this encounter Visit Diagnoses Not on filedocumented in this encounter Care Teams Poleyard Supervisor Relationship Specialty Start Date End Date Maddie Kim MD [address] [place] [address] PCP - General Family Medicine 07/12/20 Willie Gage 01/17/22 documented as of this encounter
--- OUTSIDE RECORDS SUMMARY | 2024-04-04 12:53 | XMS_ITS | Encounter Summary ---
Author Organization [employer] Address [address] [facility] 7t [place] [address] Care Team Providers Care Customer Advisor Specialist Name Role Phone Maddie Kim MD Primary Care Provider [phone] Reason for Visit * Reason Onset Date Comments Med Refill 04/12/2023 Encounter Details Date Type Department Care Team ([facility] st Contact Info) Description 04/12/2023 Refill [facility] MEDICINE 230 [place], [place] [phone] Maddie Kim MD [address] [place], [place] [phone] Chronic bilateral low back pain without sciatica [...] 04/18/2024 9:00 AM EST Nutrition [facility] DIABETES/NUTRITION [address] [place] [address] [place] [address] documented as of this encounter Visit Diagnoses Diagnosis Chronic bilateral low back pain without sciatica documented in this encounter Additional Health Concerns Assessment Noted Time PHQ-9 Depression Total Score: 0 05/30/19 23 3:26 PM EDT documented as of this encounter Care Teams Customer Advisor Specialist Relationship Specialty Start Date End Date Maddie Kim MD [address] [place] [address] PCP - General Family Medicine 07/12/20 Willie Gage 01/17/22 documented as of this encounter
--- OUTSIDE RECORDS SUMMARY | 2024-04-04 12:53 | XMS_ITS | Encounter Summary ---
Author Organization [employer] Address [address] [place] [address] 7t [place] [address] Care Team Providers Care Assessor Name Role Phone Maddie Kim MD Primary Care Provider [phone] Reason for Visit * Reason Onset Date Comments c/b request 11/10/2022 Encounter Details Date Type Department Care Team ([facility] st Contact Info) Description 11/10/[address] [facility] MEDICINE [address] [place] [address] [phone] Maddie Kim MD [address] [place], [place] [phone] c/b request Social History Tobacco Use Types [...] to medication reconciliation. Please contact [employer] at [phone] documented in this encounter Plan of Treatment Upcoming Encounters Date Type Department Care Team (Late st Contact Info) Description 04/18/2024 9:00 AM EST Nutrition [facility] DIABETES/NUTRITION [address] [place], [place] [phone] Rosie Vick [address] [place] [address] documented as of this encounter Visit Diagnoses Diagnosis Gastroesophageal reflux disease without esophagitis Esophageal reflux documented in this encounter Additional Health Concerns Assessment Noted Time PHQ-9 Depression Total Score: 0 05/30/19 23 3:26 PM EDT documented as of this encounter Care Teams Assessor Relationship Specialty Start Date End Date Maddie Kim MD [address] [place] [address] PCP - General Family Medicine 07/12/20 Willie Gage 01/17/22 documented as of this encounter
--- OUTSIDE RECORDS SUMMARY | 2024-04-04 12:53 | XMS_ITS | Encounter Summary ---
Author Organization [employer] Address [address] [place] [address] 7t [place] [address] Care Team Providers Care Microbiology Coordinator Name Role Phone Maddie iKm MD Primary Care Provider Reason for Visit * Reason Onset Date Comments No Show 04/02/2024 Encounter Details Date Type Department Care Team ([facility] Contact Info) Description 04/02/2024 Telephone [facility] MEDICINE [address] [place], [place] [phone] Maddie Kim MD 230 [place], [place] [phone] No Show Social History Tobacco Use Types [...] Telephone Encounter - Sheila Rene RN - 04/02/2024 4:56 PM EST Noted. Patient was seen by PCP today at 3:30pm, note in chart. * Telephone Encounter - Kait Barrera - 04/02/2024 1:57 PM EST Pt no showed to appt on 04/02/24 documented in this encounter Plan of Treatment Upcoming Encounters Date Type Department Care Team (Late st Contact Info) Description 04/18/2024 9:00 AM EST Nutrition [facility] DIABETES/NUTRITION [address] [place] [address] Rosie Vick, SHANICE [address] [place] [address] documented as of this encounter Visit Diagnoses Not on filedocumented in this encounter Additional Health Concerns Assessment Noted Time PHQ-9 Depression Total Score: 3 06/15/19 24 11:48 AM EDT documented as of this encounter Care Teams Microbiology Coordinator Relationship Specialty Start Date End Date Maddie Kim MD [address] [place] [address] PCP - General Family Medicine 07/12/20 Willie Gage 01/17/22 documented as of this encounter
--- OUTSIDE RECORDS SUMMARY | 2024-04-04 12:53 | XMS_ITS | Encounter Summary ---
Author Organization [employer] Address [address] [place] [address] 7t [place] [address] Care Team Providers Care Process Assistant Name Role Phone Maddie Kim MD Primary Care Provider [phone] Encounter Details Date Type Department Care Team ([facility] Contact Info) Description 06/26/2022 Abstract [facility] MEDICINE [address] [place] [address] Maddie Kim MD [address] [place] [address] Social History Tobacco Use Types Packs/Day Years [...] Upcoming Encounters Date Type Department Care Team ([facility] Contact Info) Description 04/18/2024 9:00 AM EST Nutrition [facility] DIABETES/NUTRITION [address] [place] [address] Rosie Vick, SHANICE [address] [place], [place] [phone] documented as of this encounter Visit Diagnoses Not on filedocumented in this encounter Additional Health Concerns Assessment Noted Time PHQ-9 Depression Total Score: 0 05/30/19 23 3:26 PM EDT documented as of this encounter Care Teams Process Assistant Relationship Specialty Start Date End Date Maddie Kim MD [address] [place], [place] [phone] PCP - General Family Medicine 07/12/20 Willie Gage 01/17/22 documented as of this encounter
--- OUTSIDE RECORDS SUMMARY | 2024-04-04 12:53 | XMS_ITS | Encounter Summary ---
Author Organization [employer] Address [address] [facility] 7t [place] [address] Care Team Providers Care Civilian Jail Officer Name Role Phone Maddie Kim MD Primary Care Provider [phone] Reason for Visit * Reason Comments Med Refill Encounter Details Date Type Department Care Team ([facility] st Contact Info) Description 04/12/2023 Refill [facility] [address] [place] [address] [phone] Isac Gonzalez MD [address] [place], [place] [phone] Chronic bilateral low back pain without sciatica [...] Info) Description 04/18/2024 9:00 AM EST Nutrition [facility] DIABETES/NUTRITION 230 [place] [address] [place] [address] documented as of this encounter Visit Diagnoses Diagnosis Chronic bilateral low back pain without sciatica documented in this encounter Additional Health Concerns Assessment Noted Time PHQ-9 Depression Total Score: 0 05/30/19 23 3:26 PM EDT documented as of this encounter Care Teams Civilian Jail Officer Relationship Specialty Start Date End Date Maddie Kim MD [address] [place] [address] PCP - General Family Medicine 07/12/20 Willie Gage 01/17/22 documented as of this encounter
--- OUTSIDE RECORDS SUMMARY | 2024-04-04 12:53 | XMS_ITS | Encounter Summary ---
Author Organization [employer] Address [address] [place] [address] 7t [place] [address] Care Team Providers Care Flattening Press Operator Name Role Phone Maddie Kim MD Primary Care Provider [phone] Reason for Referral * Consultation (Routine) - Closed Specialty Diagnoses / Procedures Referred By Sindi mejia Referred To Contact Nutrition Diagnoses Class 2 severe obesity with serious comorbidity and body mass index (BMI) of 39.0 to 39.9 in adult, unspecified obesity type (CMS/HCC) Maddie Kim MD [address] [place] [address] Phone: tel: fax: Referral ID Status Reason Start Date Expiration Date V isits Requested Visits Authorized [id number] Closed Consult and Treat 04/06/2023 04/05/2024 1 1 Encounter Details Date Type Department Care Team (Late st Contact Info) Description 04/06/2023 Orders Only [facility] MEDICINE [address] [place] [address] [phone] Maddie Kim MD [address] [place] [address] Class 2 severe obesity with serious comorbidity [...] EST Nutrition [facility] DIABETES/NUTRITION [address] [place] [address] [place] [address] Scheduled Referrals Name Type Priority Associated Diagnoses [...] EDT Narrative 05/26/2023 3:06 PM EDT ? [facility] ? [address] ?[place] [address] ? Mammography Report ? Signed ? Patient: Isaias,Atiya ?MR#: [id number] ? : 1975 ?Acct:[id number] ? Age/Sex: 47 / F ?ADM Date: 05/04/23 ? Loc: HO.MAMMO ? Attending Dr: Maddie Kim MD ? Ordering Physician: Maddie Kim ?Results: 1Negative ? Date of Service: 05/04/23 ?Follow Up: 1 Year From Orig ?? inal Mammogram ? Procedure(s): MM tomosynthesis screening BI ?? Accession Number(s): [id number] ? cc: Maddie Kim ? EXAMINATION: ?? [...] 1503 ? DD/ 1602 ? TD/TT: ? Utility Hand: ? Procedure Note Donrutter, Image - 05/26/2023 [facility] [address] [place] [address] Mammography Report Signed Patient: Zain Esparza#: [id number] : 1975Acct:[id number] Age/Sex: 47 / FADM Date: 05/04/23 Loc: MICHAEL Attending Dr: Maddie Kim MD Ordering Physician: Jaja Kimults: 1Negative Date of Service: 05/04/23Follow Up: 1 Year From Orig inal Mammogram Procedure(s): MM tomosynthesis screening BI Accession Number(s): [id number] cc: Maddie Kim EXAMINATION: MM SCREENING DIGITAL [...] in OV> 05/26/23 1503 DD/ 1602 TD/TT: Utility Hand: Maddie Kim MD IMG BI PROCEDURES Final [...] documented as of this encounter Care Teams Flattening Press Operator Relationship Specialty Start Date End Date Maddie Kim MD [address] [place] [address] PCP - General Family Medicine 07/12/20 Willie Gage 01/17/22 documented as of this encounter
--- OUTSIDE RECORDS SUMMARY | 2024-04-04 12:53 | XMS_ITS | Encounter Summary ---
Author Organization [email or web address] Address [address] [place] [address] 7t [place] [address] Care Team Providers Care Refund Specialist Name Role Phone Maddie Kim MD Primary Care Provider [phone] Encounter Details Date Type Department Care Team (Late Contact Info) Description 04/11/2022 Abstract [facility] MEDICINE [address] [place], [place] [phone] Maddie Kim MD [address] [place], [place] [phone] Social History Tobacco Use Types Packs/Day Years [...] Info) Description 04/18/2024 9:00 AM EST Nutrition [facility] DIABETES/NUTRITION [address] [place] [address] [place] [address] documented as of this encounter Visit Diagnoses Not on filedocumented in this encounter Care Teams Refund Specialist Relationship Specialty Start Date End Date Maddie Kim MD [address] [place] [address] PCP - General Family Medicine 07/12/20 Willie Gage 01/17/22 documented as of this encounter
--- OUTSIDE RECORDS SUMMARY | 2024-04-04 12:53 | XMS_ITS | Encounter Summary ---
Author Organization [email or web address] Address [address] [facility] 7t [place] [address] Care Team Providers Care Lease Administration Supervisor Name Role Phone Maddie Kim MD Primary Care Provider [phone] Reason for Visit * Reason Onset Date Comments Call Back Request 03/31/2024 Encounter Details Date Type Department Care Team ([facility] Contact Info) Description 03/31/2024 Telephone [facility] MEDICINE [address] [place], [place] [phone] Maddie Kim MD [address] [place], [place] [phone] Call Back Request Social History Tobacco Use [...] encounter Miscellaneous Notes * Telephone Encounter - Rossy Porter RN - 04/04/2024 10:25 AM EST Called pt. RE: Incoming pt. Portal message RE: Heart rate of 129 resting pulse. No answer. Left message on pt. Voicemail that I will send message back to her on pt. Portal. * Telephone Encounter - Sheila Rnee RN - 03/31/2024 1:23 PM EST TC placed to patient [phone] in regards to below message. RN did attempt calling patient today(see [place] encounter). Patient accepted HDF appointment for 04/02/24 at 11am for HDF. Patient to f/u PRN. * Telephone Encounter - Elier Mckinley - 03/31/2024 12:58 PM EST Tc from pt stating that a nurse Lesvia called her to transfer call to red team , literary writer verify and there was no notes corrections caseworker she states that was placed. Pt then tells literary writer to tell nurse from red team to call her urgently. [phone] documented in this encounter Plan of Treatment Upcoming Encounters Date Type Department Care Team (Late st Contact Info) Description 04/18/2024 9:00 AM EST Nutrition [facility] DIABETES/NUTRITION [address] [place] [address] Rosie Vick, SHANICE [address] [place], [place] [phone] documented as of this encounter Visit Diagnoses Not on filedocumented in this encounter Additional Health Concerns Assessment Noted Time PHQ-9 Depression Total Score: 3 06/15/19 24 11:48 AM EDT documented as of this encounter Care Teams Lease Administration Supervisor Relationship Specialty Start Date End Date Maddie Kim MD [address] [place] [address] PCP - General Family Medicine 07/12/20 Willie Gage 01/17/22 documented as of this encounter
--- OUTSIDE RECORDS SUMMARY | 2024-04-04 12:53 | XMS_ITS | Encounter Summary ---
Author Organization [employer] Address [address] [facility] 7t [place] [address] Care Team Providers Care Relationship Specialist Name Role Phone Maddie Kim MD Primary Care Provider [phone] Encounter Details Date Type Department Care Team ([facility] st Contact Info) Description 01/02/[address] [facility] MEDICINE [address] [place], [place] [phone] Maddie Kim MD [address] [place], [place] [phone] Social History Tobacco Use Types Packs/Day Years [...] Info) Description 04/18/2024 9:00 AM EST Nutrition [facility] DIABETES/NUTRITION [address] [place] [address] [place] [address] documented as of this encounter Visit Diagnoses Not on filedocumented in this encounter Additional Health Concerns Assessment Noted Time PHQ-9 Depression Total Score: 3 06/15/19 24 11:48 AM EDT documented as of this encounter Care Teams Relationship Specialist Relationship Specialty Start Date End Date Maddie Kim MD [address] [place] [address] PCP - General Family Medicine 07/12/20 Willie Gage 01/17/22 documented as of this encounter
--- OUTSIDE RECORDS SUMMARY | 2024-04-04 12:53 | XMS_ITS | Clinical Summary ---
Author Organization Unknown Care Team Providers Care Bread Stacker Name Role Phone MARLON AHUMADA, JEAN-PIERRE Unavailable Unavailable ENRIQUE WEINSTEINW, WINNIE Unavailable Unavailable KATINA RN, ANASTACIA Unavailable Unavailable SMILEY RN, JENNI Unavailable Unavailable JAVIER RN, GABBY Unavailable Unavaila ble Payers Payer Name Policy Type Policy Number Effective Date Expira tion Date [facility] [id number] [place] [id number] MEDICARE - [facility] [place] - PD [id number] Problems Condition Name Condition Details Condition Category [...] 2020-02 00:00: 00 03-07 00:00 :00 No [id number] 10 mg 3 TIMES DAILY 10 mg 3 TIMES DAILY (route: oral) Med Classific ation: Locomotor System buprenorphi ne 4 mg-naloxone 1 mg sublingual film 2020-02 00:00: 00 04-05 00:00 :00 No [id number] Per instruc tions NEEDED Per instructio ns NEEDED (route: sublingual ) Med Classific ation: Chemical Dependenc y, Agents to Treat divalproex 250 mg tablet,kassandra yed release 2020-02 00:00: 00 04-05 23:59 :00 No [id number] 250 mg DAILY 250 mg DAILY (route: oral) Med Classific ation: Central Nervous System Agents divalproex ER 500 mg tablet,exte nded release 24 hr 2020-02 00:00: 00 04-05 00:00 :00 No [id number] 500 mg 2 TIMES DAILY 500 mg 2 TIMES DAILY (route: oral) Med Classific ation: Central Nervous System Agents ferrous sulfate 325 mg (65 mg iron) tablet 2020-02 00:00: 00 04-05 00:00 :00 No [id number] 1 tablet DAILY 1 tablet DAILY (route: oral) Med Classific ation: Electroly te Balance-N utritiona l Products Invega Sustenna 156 mg/mL intramuscul ar syringe 2020-02 00:00: 00 05-11 23:59 :00 No [id number] 156 mg MONTHLY 156 mg MONTHLY (route: intramuscu lar) Med Classific ation: Central Nervous System Agents levothyroxi ne 25 mcg tablet 2020-02 00:00: 00 03-05 23:59 :00 No [id number] 25 mcg DAILY 25 mcg DAILY (route: oral) Med Classific ation: Endocrine lisinopril 5 mg tablet 2020-02 00:00: 00 11-21 23:59 :00 No [id number] 5 mg DAILY 5 mg DAILY (route: oral) Med Classific ation: Cardiovas cular Therapy Agents nicotine (polacrilex ) 4 mg gum 2020-02 00:00: 00 09-12 23:59 :00 No [id number] 4 gum NEEDED 4 gum NEEDED (route: buccal) Med Classific ation: Chemical Dependenc y, Agents to Treat nicotine 21mg/24hr-1 4mg/24hr-7m g/24hr daily transderm patches,seq uentl 2020-02 00:00: 00 09-12 23:59 :00 No [id number] 21 patch NEEDED 21 patch NEEDED (route: transderma l) Med Classific ation: Chemical Dependenc y, Agents to Treat nystatin 500,000 unit tablet 2020-02 00:00: 00 04-05 00:00 :00 No [id number] In unit 4 TIMES DAILY [id number] In unit 4 TIMES DAILY (route: oral) Med Classific ation: Anti-Infe ctive Agents omeprazole 20 mg tablet,kassandra yed release 2020-02 00:00: 00 Yes [id number] 20 mg DAILY 20 mg DAILY (route: oral) Med Classific ation: Gastroint estinal Therapy Agents prazosin 5 mg capsule 2020-02 00:00: 00 02-14 23:59 :00 No [id number] 5 capsule BEDTIME 5 capsule BEDTIME (route: oral) Med Classific ation: Cardiovas cular Therapy Agents trazodone 50 mg tablet 2020-02 00:00: 00 01-17 23:59 :00 No [id number] 50 mg NEEDED 50 mg NEEDED (route: oral) Med Classific ation: Central Nervous System Agents albuterol sulfate HFA 90 mcg/actuati on aerosol inhaler 04-05 00:00: 00 Yes [id number] 2 puff NEEDED 2 puff NEEDED (route: inhalation ) Med Classific ation: Respirato ry Therapy Agents Aspercreme with Aloe 10 % topical 04-05 00:00: 00 09-12 23:59 :00 No [id number] Per instruc tions NEEDED Per instructio ns NEEDED (route: topical) Med Classific ation: Dermatolo gical cyclobenzap rine 5 mg tablet 04-05 00:00: 00 01-17 23:59 :00 No [id number] 5 mg NEEDED 5 mg NEEDED (route: oral) Med Classific ation: Locomotor System Depakote 500 mg tablet,kassandra yed release 04-05 00:00: 00 05-06 23:59 :00 No [id number] 1000 mg 2 TIMES DAILY 1000 mg 2 TIMES DAILY (route: oral) Med Classific ation: Central Nervous System Agents diphenhydra mine 25 mg capsule 04-05 00:00: 00 06-01 23:59 :00 No [id number] 50 mg NEEDED 50 mg NEEDED (route: oral) Med Classific ation: Respirato ry Therapy Agents hydroxyzine HCl 50 mg tablet 2-15 00:00: 00 06-01 23:59 :00 No [id number] 50 mg 3 TIMES DAILY 50 mg 3 TIMES DAILY (route: oral) Med Classific ation: Central Nervous System Agents naltrexone 50 mg tablet 2-15 00:00: 00 06-01 23:59 :00 No [id number] 50 mg DAILY 50 mg DAILY (route: oral) Med Classific ation: Antidotes and other Reversal Agents Narcan 4 mg/actuatio n nasal spray 2-15 00:00: 00 06-01 23:59 :00 No [id number] Per instruc tions NEEDED Per instructio ns NEEDED (route: nasal) Med Classific ation: Antidotes and other Reversal Agents pyridoxine (vitamin B6) 25 mg tablet 2-15 00:00: 00 06-01 23:59 :00 No [id number] 25 mg DAILY 25 mg DAILY (route: oral) Med Classific ation: Electroly te Balance-N utritiona l Products Invega Sustenna 234 mg/1.5 mL intramuscul ar syringe 3-24 00:00: 00 Yes [id number] Per instruc tions MONTHLY Per instructio ns MONTHLY (route: intramuscu lar) Med Classific ation: Central Nervous System Agents Invega Sustenna 234 mg/1.5 mL intramuscul ar syringe 8-14 00:00: 00 11-30 23:59 :00 No [id number] 234 mg MONTHLY 234 mg MONTHLY (route: intramuscu lar) Med Classific ation: Central Nervous System Agents Celebrex 200 mg capsule 2021-02 0-26 00:00: 00 03-20 23:59 :00 No [id number] 200 mg 2 TIMES DAILY 200 mg 2 TIMES DAILY (route: oral) Alternate Route: NONE. Med Classific ation: Analgesic , Anti-infl ammatory or Antipyret ic Celebrex 200 mg capsule 1-30 00:00: 00 01-10 23:59 :00 No [id number] 200 mg DAILY 200 mg DAILY (route: oral) Alternate Route: NONE. Med Classific ation: Analgesic , Anti-infl ammatory or Antipyret ic docusate sodium 100 mg capsule 30 00:00: 00 01-29 23:59 :00 No [id number] 1 capsule 2 TIMES DAILY 1 capsule 2 TIMES DAILY (route: oral) Alternate Route: NONE. Med Classific ation: Gastroint estinal Therapy Agents Eliquis 2.5 mg tablet 30 00:00: 00 09-12 23:59 :00 No [id number] 1 tablet 2 TIMES DAILY 1 tablet 2 TIMES DAILY (route: oral) Med Classific ation: Hematolog ical Agents oxycodone 5 mg tablet 03-20 00:00: 00 04-18 23:59 :00 No [id number] Per instruc tions DIRECTED Per instructio ns DIRECTED (route: oral) Alternate Route: NONE. Med Classific ation: Analgesic , Anti-infl ammatory or Antipyret ic tramadol 50 mg tablet 03-20 00:00: 00 04-18 23:59 :00 No [id number] Per instruc tions DIRECTED Per instructio ns DIRECTED (route: oral) Med Classific ation: Analgesic , Anti-infl ammatory or Antipyret ic gabapentin 300 mg capsule 3-29 00:00: 00 01-10 23:59 :00 No [id number] 1 capsule 3 TIMES DAILY 1 capsule 3 TIMES DAILY (route: oral) Med Classific ation: Central Nervous System Agents cyclobenzap rine 5 mg tablet 7-27 00:00: 00 01-10 23:59 :00 No [id number] 1 tablet 3 TIMES DAILY 1 tablet 3 TIMES DAILY (route: oral) Med Classific ation: Locomotor System baclofen 10 mg tablet 2022-02 1-24 00:00: 00 03-30 23:59 :00 No [id number] 1 tablet DIRECTED 1 tablet DIRECTED (route: oral) Med Classific ation: Locomotor System docusate sodium 100 mg capsule 2022-02 00:00: 00 Yes [id number] 1 capsule NEEDED 1 capsule NEEDED (route: oral) Med Classific ation: Gastroint estinal Therapy Agents acetaminoph en 300 mg-codeine 30 mg tablet 2-09 00:00: 00 05-15 23:59 :00 No [id number] 1 tablet 3 TIMES DAILY 1 tablet 3 TIMES DAILY (route: oral) Med Classific ation: Analgesic , Anti-infl ammatory or Antipyret ic Paxlovid 300 mg (150 mg x 2)-100 mg tablets in a dose pack 09 00:00: 00 04-03 23:59 :00 No [id number] 3 tablet 2 TIMES DAILY 3 tablet 2 TIMES DAILY (route: oral) Med Classific ation: Anti-Infe ctive Agents tizanidine 4 mg tablet 03-30 00:00: 00 01-03 23:59 :00 No [id number] 1 tablet 3 TIMES DAILY 1 tablet 3 TIMES DAILY (route: oral) Med Classific ation: Locomotor System Depakote 500 mg tablet,kassandra yed release 3-23 00:00: 00 03-31 23:59 :00 No [id number] 1000 mg 2 TIMES DAILY 1000 mg 2 TIMES DAILY (route: oral) Med Classific ation: Central Nervous System Agents multivitami n tablet 15 00:00: 00 Yes [id number] 1 tablet DIRECTED 1 tablet DIRECTED (route: oral) Med Classific ation: Electroly te Balance-N utritiona l Products gabapentin 300 mg capsule 07-10 00:00: 00 Yes [id number] 2 capsule 3 TIMES DAILY 2 capsule 3 TIMES DAILY (route: oral) Med Classific ation: Central Nervous System Agents paliperidon e ER 1.5 mg tablet,exte nded release 24 hr 07-10 00:00: 00 11-22 23:59 :00 No [id number] 1 tablet DAILY 1 tablet DAILY (route: [...] thiamine HCl (vitamin B1) 100 mg tablet -03 00:00: 00 Yes 1 tablet EVERY AM 1 tablet EVERY AM (route: oral) Med Classific ation: Electroly te Balance-N utritiona l Products Seroquel 50 mg tablet - 00:00: 00 Yes 1 tablet BEDTIME 1 tablet BEDTIME (route: oral) Med Classific ation: Central Nervous System Agents cyclobenzap rine 10 mg tablet 2023-02-18 00:00: 00 Yes 1 tablet 3 TIMES [...] ation: Electroly te Balance-N utritiona l Products nitrofurant oin macrocrysta l 100 mg capsule 04-01 00:00: 00 Yes 1 capsule 2 TIMES DAILY 1 capsule 2 TIMES DAILY (route: oral) Med Classific ation: Genitouri nary Therapy HYDROCODONE -ACETAMINOP HEN ORAL 19 00:00: 10-12 00:00 :00 No 5-325 mg 5-325 mg (route: ) Med Classific ation: ANALGESIC , ANTI-INFL AMMATORY OR ANTIPYRET IC DOCUSATE SODIUM ORAL 09-19 00:00: 00 10-19 00:00 :00 No 100 mg1 CAPSULE TWICE A DAY 100 mg1 CAPSULE TWICE A DAY (route: ) Alternate Route: BY MOUTH . Med Classific ation: GASTROINT ESTINAL THERAPY AGENTS OXYCODONE ORAL 2018-02 00:00: 00 11-30 00:00 :00 No 5 mg 5 mg (route: ) Med Classific ation: ANALGESIC , ANTI-INFL AMMATORY OR ANTIPYRET IC LEVOTHYROXI NE ORAL 5 00:00: 00 08-27 00:00 :00 No 50 mcg 50 mcg (route: ) Med Classific ation: ENDOCRINE LEVOTHYROXI NE ORAL 810 00:00: 00 10-12 00:00 :00 No 25 mcg 25 mcg (route: ) Med Classific ation: ENDOCRINE CHLORPROMAZ INE ORAL 04 00:00: 00 08-22 00:00 :00 No 100 [...] CENTRAL NERVOUS SYSTEM AGENTS CHLORPROMAZ INE ORAL 04 00:00: 08-22 00:00 :00 No 50 mgONE TABLET ONCE DAILY AT BEDTIME 50 mgONE TABLET ONCE DAILY AT BEDTIME (route: ) Alternate Route: (50MG) BY MOUTH . Med Classific ation: CENTRAL NERVOUS SYSTEM AGENTS OLANZAPINE ORAL 2017-02 2-05 00:00: 00 02-22 00:00 :00 No 15 mg1 TABLET AT BEDTIME 15 mg1 TABLET AT BEDTIME (route: ) Alternate Route: BY MOUTH . Med Classific ation: CENTRAL NERVOUS SYSTEM AGENTS FLUOXETINE ORAL 4-14 00:00: 00 14 00:00 :00 No 20 mg1 CAPSULE EVERY DAY 20 mg1 CAPSULE EVERY DAY (route: ) Alternate Route: BY MOUTH . Med Classific ation: CENTRAL NERVOUS SYSTEM AGENTS OMEPRAZOLE ORAL 7-22 00:00: 00 09-23 00:00 :00 No 40 mg 40 mg (route: ) Med Classific ation: GASTROINT ESTINAL THERAPY AGENTS OMEPRAZOLE ORAL 6-04 00:00: 00 08-22 00:00 :00 No 40 mgONE CAPSULE ONCE DAILY 40 mgONE CAPSULE ONCE DAILY (route: ) Alternate Route: (40MG) BY MOUTH . Med Classific ation: GASTROINT ESTINAL THERAPY AGENTS OMEPRAZOLE ORAL 2-08 00:00: 00 04-28 00:00 :00 No 20 mg1 TABLET TWICE A DAY 20 mg1 TABLET TWICE A DAY (route: ) Alternate Route: BY MOUTH . Med Classific ation: GASTROINT ESTINAL THERAPY AGENTS OMEPRAZOLE ORAL 1-16 00:00: 00 03-20 00:00 :00 No 20 mg1 C QD 20 mg1 C QD (route: ) Alternate Route: PO . Med Classific ation: GASTROINT ESTINAL THERAPY AGENTS OMEPRAZOLE ORAL 1-03 00:00: 00 03-07 00:00 :00 No 20 mg 20 mg (route: ) Med Classific ation: GASTROINT ESTINAL THERAPY AGENTS FERROUS SULFATE ORAL 9-20 00:00: 00 12-08 00:00 :00 No 325 mg (65 mg iron)1 TABLET THREE TIMES A DAY 325 mg (65 mg iron)1 TABLET THREE TIMES A DAY (route: ) Alternate Route: BY MOUTH . Med Classific ation: ELECTROLY TE BALANCE-N UTRITIONA L PRODUCTS FERROUS SULFATE ORAL 7-31 00:00: 00 10-18 00:00 :00 [...] ANTI-INFL AMMATORY OR ANTIPYRET IC QUETIAPINE ORAL 604 00:00: 08-22 00:00 :00 No 200 mgONE TABLET [...] ation: GASTROINT ESTINAL THERAPY AGENTS IBUPROFEN ORAL 2019-0 6-08 00:00: 07-30 00:00 :00 No 600 mg 600 mg (route: ) Med Classific ation: ANALGESIC , ANTI-INFL AMMATORY OR ANTIPYRET IC IBUPROFEN ORAL 0 5-10 00:00: 00 07-28 00:00 :00 No 600 mg 600 mg (route: ) Med Classific ation: ANALGESIC , ANTI-INFL AMMATORY OR ANTIPYRET IC LITHIUM CARBONATE ORAL 0 4-10 00:00: 00 08-27 00:00 :00 No 600 mg1 CAPSULE TWICE A DAY 600 mg1 CAPSULE TWICE A DAY (route: ) Alternate Route: BY MOUTH . Med Classific ation: CENTRAL NERVOUS SYSTEM AGENTS LITHIUM CARBONATE ORAL 0 1-18 00:00: 00 03-22 00:00 :00 No 600 mgONE C BID 600 mgONE C BID (route: ) Alternate Route: PO . Med Classific ation: CENTRAL NERVOUS SYSTEM AGENTS LITHIUM CARBONATE ORAL 930 00:00: 00 12-18 00:00 :00 No 450 mgONE TABLET THREE TIMES DAILY 450 mgONE TABLET THREE TIMES DAILY (route: ) Alternate Route: (450MG) BY MOUTH . Med Classific ation: CENTRAL NERVOUS SYSTEM AGENTS LITHIUM CARBONATE ORAL 0 8-10 00:00: 00 10-12 00:00 :00 No 450 mg 450 mg (route: ) Med Classific ation: CENTRAL NERVOUS SYSTEM AGENTS LITHIUM CARBONATE ORAL 7-22 00:00: 00 09-23 00:00 :00 No 450 mg 450 mg (route: ) Med Classific ation: CENTRAL NERVOUS SYSTEM AGENTS DOK ORAL 0 9-20 00:00: 00 12-08 00:00 [...] ation: CENTRAL NERVOUS SYSTEM AGENTS DIVALPROEX ORAL 0 6-04 00:00: 00 08-22 00:00 :00 No 500 mg2 TABLETS ONCE DAILY AT BEDTIME 500 mg2 TABLETS ONCE DAILY AT BEDTIME (route: ) Alternate Route: (1000MG) BY MOUTH . Med Classific ation: CENTRAL NERVOUS SYSTEM AGENTS DIVALPROEX ORAL 2018-0216 00:00: 00 01-03 00:00 :00 No 250 mg7 TABLETS AT BEDTIME 250 mg7 TABLETS AT BEDTIME (route: ) Alternate Route: BY MOUTH . Med Classific ation: CENTRAL NERVOUS SYSTEM AGENTS DIVALPROEX ORAL 8-10 00:00: 10-12 00:00 :00 No 250 mg 250 mg (route: ) Med Classific ation: CENTRAL NERVOUS SYSTEM AGENTS DIVALPROEX ORAL 04 00:00: 08-22 00:00 :00 No 250 mgONE TABLET ONCE DAILY AT BEDTIME 250 mgONE TABLET ONCE DAILY AT BEDTIME (route: ) Alternate Route: (250MG) BY MOUTH . Med Classific ation: CENTRAL NERVOUS SYSTEM AGENTS PREDNISONE ORAL 14 00:00: 08-08 00:00 :00 No 20 mgTHREE TABLETS [...] ) Med Classific ation: ENDOCRINE PREDNISONE ORAL 07-27 00:00: 00 08-04 00:00 :00 No 10 mg 10 mg (route: ) Med Classific ation: ENDOCRINE BANOPHEN ORAL 09-18 00:00: 00 10-18 00:00 :00 No 50 mgONE CAPSULE AT BEDTIME NEEDED 50 mgONE CAPSULE AT BEDTIME NEEDED (route: ) Alternate Route: BY MOUTH . Med Classific ation: RESPIRATO RY THERAPY AGENTS RISPERIDONE ORAL 2019-1 0-16 00:00: 00 01-03 00:00 :00 No 3 mg1 TABLET EVERYDAY AT BEDTIME 3 mg1 TABLET EVERYDAY AT BEDTIME (route: ) Alternate Route: BY MOUTH . Med Classific ation: CENTRAL NERVOUS SYSTEM AGENTS RISPERIDONE ORAL 2018-0 8-10 00:00: 00 10-12 00:00 :00 No 1 mg 1 mg (route: ) Med Classific ation: CENTRAL NERVOUS SYSTEM AGENTS RISPERIDONE ORAL 3-29 00:00: 06-16 00:00 :00 No 1 mg1 TABLET TWICE A DAY 1 mg1 TABLET TWICE A DAY (route: ) Alternate Route: BY MOUTH . Med Classific ation: CENTRAL NERVOUS SYSTEM AGENTS NICOTINE TRANSDERMAL 6-04 00:00: 08-20 00:00 :00 No 21 mg/24 hr1 PATCH (21MG) TRANSDERMA LLY ONCE DAILY 21 mg/24 hr1 PATCH (21MG) TRANSDERMA LLY ONCE DAILY (route: ) Med Classific ation: CHEMICAL DEPENDENC Y, AGENTS TO TREAT HYDROXYZINE PAMOATE ORAL 8-13 00:00: 00 10-31 00:00 :00 No 25 mg 25 mg (route: ) Med Classific ation: CENTRAL NERVOUS SYSTEM AGENTS HYDROXYZINE PAMOATE ORAL 0 5-13 00:00: 00 07-31 00:00 :00 No [...] CENTRAL NERVOUS SYSTEM AGENTS HYDROXYZINE HCL ORAL 0 7-22 00:00: 00 09-23 00:00 :00 No 50 mg 50 mg (route: ) Med Classific ation: CENTRAL NERVOUS SYSTEM AGENTS BACLOFEN ORAL 0 8-10 00:00: 00 09-30 00:00 :00 No 10 mg 10 mg (route: ) Med Classific ation: LOCOMOTOR SYSTEM BACLOFEN ORAL 0 6-14 00:00: 00 08-16 00:00 :00 No [...] CENTRAL NERVOUS SYSTEM AGENTS CARISOPRODO L ORAL 6-08 00:00: 00 08-01 00:00 :00 No [...] LOCOMOTOR SYSTEM CYCLOBENZAP RINE ORAL 5-17 00:00: 07-11 00:00 :00 No 5 mg EVERY MORNING NEEDED AT BEDTIME 5 mg EVERY MORNING NEEDED AT BEDTIME (route: ) Med Classific ation: LOCOMOTOR SYSTEM LORAZEPAM ORAL 2018-0 8-12 00:00: 00 10-14 00:00 :00 No [...] CENTRAL NERVOUS SYSTEM AGENTS CLONIDINE HCL ORAL 0 5-15 00:00: 00 07-18 00:00 :00 No 0.1 mg1 TABLET THREE TIMES A DAY 0.1 mg1 TABLET THREE TIMES A DAY (route: ) Alternate Route: BY MOUTH . Med Classific ation: CARDIOVAS CULAR THERAPY AGENTS CLONIDINE HCL ORAL 0 1-16 00:00: 00 03-20 00:00 :00 No 0.1 mg1 T TID 0.1 mg1 T TID (route: ) Alternate Route: PO . Med Classific ation: CARDIOVAS CULAR THERAPY AGENTS CLONIDINE HCL ORAL 0 1-03 00:00: 00 03-07 00:00 :00 No 0.1 mg 0.1 mg (route: ) Med Classific ation: CARDIOVAS CULAR THERAPY AGENTS CLINDAMYCIN HCL ORAL 0 4-11 00:00: 00 06-06 00:00 :00 No 300 mg 3 (THREE) TIMES DAILY 300 mg 3 (THREE) TIMES DAILY (route: ) Alternate Route: 2 CAPS BY MOUTH . Med Classific ation: ANTI-INFE CTIVE AGENTS TOPIRAMATE ORAL 2018-0 2-12 00:00: 00 04-17 00:00 :00 No [...] ation: CENTRAL NERVOUS SYSTEM AGENTS TOPIRAMATE ORAL 7-22 00:00: 00 09-23 00:00 :00 [...] AGENTS ANTI-DIARRH EAL (LOPERAMIDE ) ORAL 0 5-17 00:00: 00 07-15 00:00 :00 No 2 [...] Observation Time Observation Value Commen ts Temperature 2024-04-03 10:30:00.000 97.9 [degF] Temperature 2024-04-01 16:18:00.000 98 [degF] Temperature 2024-03-28 11:37:00.000 97.4 [degF] Temperature 2024-03-24 10:57:00.000 98 [degF] Temperature 2024-03-17 12:27:00.000 98.8 [degF] Temperature 2024-03-10 12:06:00.000 98 [degF] Pulse 2024-04-03 10:37:00.000 96 /min Pulse 2024-03-28 11:37:00.000 90 /min Pulse 2024-03-24 10:57:00.000 88 /min Pulse 2024-03-17 12:25:00.000 80 /min Pulse 2024-03-10 12:06:00.000 75 /min O2 Saturation (%) 2024-04-03 10:30:00.000 97 % Respirations 2024-04-03 10:30:00.000 16 /min Respirations 2024-03-28 11:37:00.000 16 /min Respirations 2024-03-24 10:57:00.000 16 /min Respirations 2024-03-17 12:27:00.000 16 /min Respirations 2024-03-10 12:06:00.000 16 /min Systolic Blood Pressure 2024-04-03 10:23:00.000 106 mm [Hg] Systolic Blood Pressure 2024-03-28 11:37:00.000 110 mm [Hg] Systolic Blood Pressure 2024-03-24 10:57:00.000 110 mm [Hg] Systolic Blood Pressure 2024-03-17 12:27:00.000 132 mm [Hg] Systolic Blood Pressure 2024-03-14 11:20:00.000 140 mm [Hg] Systolic Blood Pressure 2024-03-10 12:06:00.000 110 mm [Hg] Diastolic Blood Pressure 2024-04-03 10:23:00.000 60 mm [Hg] Diastolic Blood Pressure 2024-03-28 11:37:00.000 [...] AWARENESS FOR SAFETY AND WILL NOTIFY CLINICAL RAW MATERIAL PLANNER AND PHYSICIAN/PROVIDER WITH ANY CHANGE IN CONDITION. [code = SKILLED NURSE WILL MAINTAIN SITUATIONAL AWARENESS FOR SAFETY AND WILL NOTIFY CLINICAL RAW MATERIAL PLANNER AND PHYSICIAN/PROVIDER WITH ANY CHANGE IN CONDITION.] [...] GABBY HERRERA RN]:</paragraph><paragraph>PATIENT ALERT AND ORIENTED X3. PT REPORTS THAT SHE WENT TO THE ER ON SUNDAY NIGHT FOR TACHYCARDIA AFTER ARGUING WITH HER MOTHER AND SISTER. REPORTS NO NEW MED CHANGES. STATES THAT SHE ALSO SAW HER PCP YESTERDAY FOR A FOLLOW UP. PATIENT'S HEART RATE WAS 104 AND REGULAR UPON SN ARRIVAL TODAY BUT DECREASED TO 96 AFTER RELAXING. PT DENIES CHEST PAIN, DIZZINESS OR SHORTNESS OF BREATH. REPORTS THAT SHE IS DRINKING 4 CAFFEINATED COFFEES PER DAY. SN ENCOURAGED PATIENT TO DECREASE HER CAFFEINE INTAKE. PT ALSO REPORTS THAT SHE IS SMOKING A PACK OF CIGARETTES PER DAY. SN INSTRUCTED ON SMOKING CESSATION TECHNIQUES. PT IS GOING TO HER OUTPATIENT PARTIAL HOSPITALIZATION PROGRAM TOMORROW. SN ALSO INSTRUCTED ON COPING STRATEGIES. PATIENT REPORTS THAT PRAYING AND WATCHING TV HELPS WITH HER SYMPTOMS OF ANXIETY AND DEPRESSION. PT DENIES SI/HI. CRISIS PLAN IS IN PLACE. MEDICATION LOCK BOX IS SECURE. PATIENT CONTINUES ON ANTIBIOTIC FOR UTI. PT REPORTS VOIDING CLEAR YELLOW URINE AND PATIENT AFEBRILE.</paragraph> <paragraph>[Visit Date: 2024 by GABBY HERRERA RN]:</paragraph><paragraph>PATIENT [...] IN PLACE. MEDICATION LOCK BOX IS SECURE.</paragraph> Encounters Start Date/Time End Date/Time Encounter Type Admission Type Attending [facility] Care Department Encounter ID Discharge Date Discharge Status Discharge Condition Discharge Reason Percent Goals Met 2022-01-17 00:00:00 2024-05-05 00:00:00 Outpatient [facility]ERT[facility] [id number] 43.75
--- OUTSIDE RECORDS SUMMARY | 2024-04-04 12:54 | XMS_ITS | Encounter Summary ---
Author Organization [employer] Address [address] [place] [address] Care Team Providers Care Commercial Tire Service Technician Name Role Phone Maddie Kim MD Primary Care Provider [phone] Reason for Visit * Reason Comments Med Refill Encounter Details Date Type Department Care Team ([facility] st Contact Info) Description 03/18/2023 Refill [facility] [address] [place] [address] [phone] Maddie Kim MD [address] [place] [address] [phone] Social History Tobacco Use Types Packs/Day Years [...] EST Nutrition [facility] DIABETES/NUTRITION [address] [place] [address] Rosie Vick, SHANICE [address] [place] [address] documented as of this encounter Visit Diagnoses Not on filedocumented in this encounter Additional Health Concerns Assessment Noted Time PHQ-9 Depression Total Score: 0 05/30/19 23 3:26 PM EDT documented as of this encounter Care Teams Commercial Tire Service Technician Relationship Specialty Start Date End Date Maddie Kim MD [address] [place] [address] PCP - General Family Medicine 07/12/20 Willie Gage 01/17/22 documented as of this encounter
--- OUTSIDE RECORDS SUMMARY | 2024-04-04 12:54 | XMS_ITS | Encounter Summary ---
Author Organization [employer] Address [address] [place] [address] [address] [place] [address] Care Team Providers Care Materials Manager Name Role Phone Maddie Kim MD Primary Care Provider [phone] Reason for Visit * Reason Onset Date Comments NTTS 03/24/2024 Encounter Details Date Type Department Care Team ([facility] Contact Info) Description 03/24/2024 Telephone [facility] MEDICINE [address] [place], [place] [phone] Sheila Rene RN [address] [place] [address] NTTS Social History Tobacco Use Types Packs/Day [...] pain NTTS RN's advised patient to call [facility] in the AM for a consult. TC placed to patient [phone] who reports [facility] evaluated her on 03/22/24 and stated she does not have a UTI. Patient reports she was informed her pain is most likely related to her bladder mesh which was placed after her bladder lifting surgery in 2022. Patient also reports she is currently at a partial program and the provider ordered BW which patient completed on 03/21/24 via [facility] labs and her sodium [...] new appointment date and time. RN called [facility] [phone] to request visit note from 03/22/24 to be faxed to [phone]. RN also obtained [facility] labs from 03/21/24 and scanned into chart. documented in this encounter Plan of Treatment Upcoming Encounters Date Type Department Care Team (Late st Contact Info) Description 04/18/2024 9:00 AM EST Nutrition [facility] DIABETES/NUTRITION [address] [place] [address] Rosie Vick, SHANICE [address] [place] [address] documented as of this encounter Visit Diagnoses Not on filedocumented in this encounter Additional Health Concerns Assessment Noted Time PHQ-9 Depression Total Score: 3 06/15/19 24 11:48 AM EDT documented as of this encounter Care Teams Materials Manager Relationship Specialty Start Date End Date Maddie Kim MD [address] [place] [address] PCP - General Family Medicine 07/12/20 Willie Gage 01/17/22 documented as of this encounter
--- OUTSIDE RECORDS SUMMARY | 2024-04-04 12:54 | XMS_ITS | Encounter Summary ---
Author Organization [employer] Address [address] [facility] 7t [place] [address] Care Team Providers Care Insurance Sales Assistant Name Role Phone Maddie Kim MD Primary Care Provider [phone] Encounter Details Date Type Department Care Team ([facility] st Contact Info) Description 03/19/2023 Orders Only [facility] MEDICINE [address] [place], [place] [phone] Maddie Kim MD [address] [place], [place] [phone] Herniated lumbar intervertebral disc (Primary Dx) Social [...] Info) Description 04/18/2024 9:00 AM EST Nutrition [facility] DIABETES/NUTRITION [address] [place] [address] Rosie Vick, SHANICE [address] [place] [address] documented as of this encounter Visit Diagnoses Diagnosis Herniated lumbar intervertebral disc- Primary Displacement of lumbar intervertebral disc without myelopathy documented in this encounter Additional Health Concerns Assessment Noted Time PHQ-9 Depression Total Score: 0 05/30/19 23 3:26 PM EDT documented as of this encounter Care Teams Insurance Sales Assistant Relationship Specialty Start Date End Date Maddie Kim MD [address] [place] [address] PCP - General Family Medicine 07/12/20 Willie Gage 01/17/22 documented as of this encounter
--- OUTSIDE RECORDS SUMMARY | 2024-04-04 12:54 | XMS_ITS | Encounter Summary ---
Author Organization [employer] Address [address] [facility] 7t [place] [address] Care Team Providers Care Manager House Name Role Phone Maddie Kim MD Primary Care Provider [phone] Reason for Visit * Reason Onset Date Comments Med Refill 04/04/2023 Encounter Details Date Type Department Care Team ([facility] st Contact Info) Description 04/04/2023 Refill [facility] [address] [place] [address] [phone] Isac Gonzalez MD [address] [place], [place] [phone] Chronic bilateral low back pain without sciatica [...] Description 04/18/2024 9:00 AM EST Nutrition [facility] DIABETES/NUTRITION 230 [place] [address] [place] [address] documented as of this encounter Visit Diagnoses Diagnosis Chronic bilateral low back pain without sciatica documented in this encounter Additional Health Concerns Assessment Noted Time PHQ-9 Depression Total Score: 0 05/30/19 23 3:26 PM EDT documented as of this encounter Care Teams Manager House Relationship Specialty Start Date End Date Maddie Kim MD [address] [place] [address] PCP - General Family Medicine 07/12/20 Willie Gage 01/17/22 documented as of this encounter
--- OUTSIDE RECORDS SUMMARY | 2024-04-04 12:54 | XMS_ITS | Encounter Summary ---
Author Organization [employer] Address [address] [facility] 7t [place] [address] Care Team Providers Care Printing Services Coordinator Name Role Phone Maddie Kim MD Primary Care Provider [phone] Reason for Visit * Reason Comments Med Refill Encounter Details Date Type Department Care Team ([facility] st Contact Info) Description 04/05/2023 Refill [facility] [address] [place] [address] [phone] Isac Gonzalez MD [address] [place] [address] [phone] Chronic bilateral low back pain without sciatica [...] - 04/06/2023 12:46 PM EST TC to [facility] pharmacy, T3 RX written 03/29/23 for [...] Nutrition [facility] DIABETES/NUTRITION [address] [place] [address] [place] [address] documented as of this encounter Visit Diagnoses Diagnosis Chronic bilateral low back pain without sciatica documented in this encounter Additional Health Concerns Assessment Noted Time PHQ-9 Depression Total Score: 0 05/30/19 23 3:26 PM EDT documented as of this encounter Care Teams Printing Services Coordinator Relationship Specialty Start Date End Date Maddie Kim MD 230 [place] [address] PCP - General Family Medicine 07/12/20 Willie Gage 01/17/22 documented as of this encounter
--- OUTSIDE RECORDS SUMMARY | 2024-04-04 12:54 | XMS_ITS | Continuity of Care Document ---
Author Organization [facility] [employer] [facility] [place] - [facility] Address [address] [place] [phone] Care Team Providers Care O And M Supervisor Name Role Phone HIM [facility] OTHER [facility] OTHER [phone] Assessment No assessment recorded. Plan of Treatment Reminders Order Date Submit Date Provider Last Modified By Organization Details Last Modified Time Details Appointments None recorded. Lab urinalysis , dipstick 2024 025 [facility], [address] [place] [address], [id number], 16:34:28 culture, urine 2024 025 [facility], [address] [place] [address], [id number], 20:06:10 Referral None recorded. Procedures None recorded. [...] Name and Address Organization Details Recorded Time 43510 Dilantin medicatio n Not available Not available Not available 02/22/202491497 0 RxNorm Not Available [facility] - production 14:48:20 27291 sulfameth oxazole medicatio n Not available Not available Not available 02/22/2024 88873 RxNorm Not Available [facility] 14:48:20 09875 trimethop rim medicatio n Not available Not available Not available 02/22/2024 00884 RxNorm Not Available [facility] 14:48:20 93598 Product containin g penicilli n and antibioti c (product) medicatio n Not available Not available Not available 02/22/2024 40883 05 SNOMED Not Available [facility] 14:48:20 09825 penicilli n G benzathin e medicatio n Not available Not available Not available 02/22/2024 7982 RxNorm Not Available [facility] 14:48:20 68516 penicilli n G procaine medicatio n Not available Not available Not available 02/22/2024 7983 RxNorm Not Available [facility] 14:48:20 Medications Name Sig Start Date Stop [...] SNOMED-CT Code Diagnosis ICD10 Code Diagnosis Note [id number] KALYN YAO MD Main - [facility] [address] [place] [phone] 02/22/2024 21:29:01 02/23/2024 18:48:12 Urinary symptoms [id number] R39.9 Evaluation in the field was performed by my miller head wet process colleague, as noted above, I provided real-time [...] first dose was administer ed by the miller head wet process. -To alleviate the burning sensation, a prescripti [...] or flank pain or any other concerns. [id number] Fawn Coelho MD Main - [facility] [address] [place] [phone] 02/23/2024 14:34:12 02/23/2024 18:56:04 Urinary symptoms [id number] R39.9 [id number] Aramis Gallardo MD Main - [facility] [address] [place] [phone] [id number] 02/26/2024 11:22:16 02/28/2024 11:56:29 Urinary symptoms [id number] R39.9 Fever [id number] R50.9 [id number] Jessica Hadley MD Main - [facility] [address] [place] [phone] 03/23/2024 13:03:05 03/25/2024 16:45:46 Urinary symptoms [id number] R39.9 As noted, we were called to see this patient regarding concerns of urinary symptoms. Evaluation in the field was performed by my miller head wet process colleague, as noted above, I provided real-time [...] Fernandez Member ID Guarantor Name 03/23/2024 1 [facility] - DOS ON OR AFTER 2022 - DUAL ELIGIBLE - HALFWAY OPTIONS AND ONE CARE (MEDICARE REPLACEMENT/ADV ANTAGE - HMO) Atiya Dotson [id number] Atiya Dotson Notes Date Note Type Note [...] at 03/23/2024 Allergies Reviewed at 03/23/2024 Comments: Dog Daycare Provider verified the Pt.'s name//address and phone number. [...] Tylenol for pain - Wellness visit requested Director Geophysical Laboratory Organization Information for Sandro Kearney [employer] Legal Name: [facility] Address: [address] [place] [address], Baggage Porter: Jeff Bautista MD IA No.: [id number] Director Geophysical Laboratory POC Test Results from [facility] Urine Dipstick (13:07:26) Urine leukocytes: trace LEXIE Urine nitrites: - NIT Urine urobilinogen: - URO Urine protein: - PRO Urine pH: 5.0 pH Urine blood: - BLO Urine specific gravity: 1.010 SG Urine ketones: - KET Urine bilirubin: - MARCEL Urine glucose: - GLU ...................... ...................... ...................... ...................... ...................... ...................... ......... Director Geophysical Laboratory Note From Sandro Kearney: This 48-year-old female [...] ...................... ...................... ...................... ...................... ...................... ...................... ......... [facility] Consulted: Krones, Jessica ...................... ...................... ...................... ...................... ...................... ...................... ......... Disposition: Fulfilled Jessica Hadley MD [address] [facility],[address], [place], [phone], [employer] [facility] 03/23/2024 13:41:47 OBGyn Episode No OBEpisode recorded.
--- OUTSIDE RECORDS SUMMARY | 2024-04-04 12:54 | XMS_ITS | Encounter Summary ---
Author Organization [employer] Address [address] [facility] 7t [place] [address] Care Team Providers Care Food Counter Worker Name Role Phone Maddie Kim MD Primary Care Provider [phone] Reason for Visit * Reason Onset Date Comments Med Refill 03/19/2023 Encounter Details Date Type Department Care Team ([facility] Contact Info) Description 03/19/2023 Telephone [facility] MEDICINE [address] [place] [address] Maddie Kim MD 230 [place], [place] [phone] Med Refill Social History Tobacco Use Types [...] Pt agrees. MD Maddie Saravia RN; [facility] Team Nurses Caller: Unspecified (2 weeks ago) I wrote her a work excuse extending her time for remote work until 04/05/23 * Telephone Encounter - Maddie Crawford RN - 04/02/2023 3:02 PM EST Images from the original note were not included. Triage call regarding Pt portal message below. Pt continues to have symptoms of Covid. Pt was seen in [facility] 03/29/[address] Gonzalez and dx [...] better sooner [facility]. Advised Pt will send this [...] - Diagnosed With COVID-19 by Doctor (or NURSES DIRECTOR/PA) and Mild Symptoms * General Care Advice for COVID-19 Symptoms * Humidifier * Coughing Spells * Pain and Fever Medicines * Mild Stomach and Intestinal Symptoms During COVID-19 Illness Atiya [facility] Clinial Support (supporting Lorrie Alaniz [...] EST Nutrition [facility] DIABETES/NUTRITION [address] [place] [address] Rosie Vick, SHANICE [address] [place] [address] documented as of this encounter Visit Diagnoses Not on filedocumented in this encounter Additional Health Concerns Assessment Noted Time PHQ-9 Depression Total Score: 0 05/30/19 23 3:26 PM EDT documented as of this encounter Care Teams Food Counter Worker Relationship Specialty Start Date End Date Maddie Kim MD [address] [place] [address] PCP - General Family Medicine 07/12/20 Willie Gage 01/17/22 documented as of this encounter
--- OUTSIDE RECORDS SUMMARY | 2024-04-04 12:54 | XMS_ITS | Encounter Summary ---
Author Organization [employer] Address [address] [facility] 7t [place] [address] Care Team Providers Care Neuroscience Specialist Name Role Phone Maddie Kim MD Primary Care Provider [phone] Reason for Visit * Reason Onset Date Comments Nurse Triage 05/14/2023 Encounter Details Date Type Department Care Team ([facility] st Contact Info) Description 05/14/2023 Telephone [facility] MEDICINE 230 [place], [place] [phone] Maddie Kim MD [address] [place], [place] [phone] Nurse Triage Social History Tobacco Use Types [...] accepted this outcome Any questions to Destiny [phone] documented in this encounter Plan of Treatment Upcoming Encounters Date Type Department Care Team (Late st Contact Info) Description 04/18/2024 9:00 AM EST Nutrition [facility] DIABETES/NUTRITION 230 [place] [address] Rosie Vick, RD 230 [place] [address] documented as of this encounter Visit Diagnoses Not on filedocumented in this encounter Additional Health Concerns Assessment Noted Time PHQ-9 Depression Total Score: 0 05/30/19 23 3:26 PM EDT documented as of this encounter Care Teams Neuroscience Specialist Relationship Specialty Start Date End Date Maddie Kim MD [address] [place] [address] PCP - General Family Medicine 07/12/20 Willie Gage 01/17/22 documented as of this encounter
--- OUTSIDE RECORDS SUMMARY | 2024-04-04 12:54 | XMS_ITS | Encounter Summary ---
Author Organization [employer] Address [address] [facility] 7t [place] [address] Care Team Providers Care Hydrologist Name Role Phone Maddie Kim MD Primary Care Provider [phone] Encounter Details Date Type Department Care Team ([facility] st Contact Info) Description 03/24/2024 Telephone [facility] MEDICINE 230 [place], [place] [phone] Maddie Kim MD 230 [place], [place] [phone] Social History Tobacco Use Types Packs/Day Years [...] reviewed meditech, patient is currently admitted to [facility] d/t hypokalemia, hyperkalemia and hypotension. Patient admitted [...] 3:29 PM EST TC placed to patient [phone] to inform patient, PCP would like patient to repeat BW tomorrow as per provider at [facility]. If sodium returns low again then hydrochlorothiazide [...] Name of Caller/Facility:Lauren Gage RN Callback number: [phone] Reason for Call: NA 125 Lauren RN [...] team nurses for follow up. [employer] Chat Secure Message also sent to Red Team Nurses. documented in this encounter Plan of Treatment Upcoming Encounters Date Type Department Care Team (Late st Contact Info) Description 04/18/2024 9:00 AM EST Nutrition [facility] DIABETES/NUTRITION 230 [place] [address] Rosie Vick, SHANICE [address] [place] [address] documented as of this encounter Visit Diagnoses Not on filedocumented in this encounter Additional Health Concerns Assessment Noted Time PHQ-9 Depression Total Score: 3 06/15/19 24 11:48 AM EDT documented as of this encounter Care Teams Hydrologist Relationship Specialty Start Date End Date Maddie Kim MD [address] [place] [address] PCP - General Family Medicine 07/12/20 Willie Gage 01/17/22 documented as of this encounter
--- OUTSIDE RECORDS SUMMARY | 2024-04-04 12:54 | XMS_ITS | Encounter Summary ---
Author Organization [employer] Address [address] [facility] 7t [place] [address] Care Team Providers Care Facilities Administrator Name Role Phone Maddie Kim MD Primary Care Provider [phone] Reason for Visit * Reason Onset Date Comments Med Refill 02/14/2023 Encounter Details Date Type Department Care Team ([facility] Contact Info) Description 02/14/2023 Refill [facility] [address] [place] [address] [phone] Mdadie Kim MD [address] [place], [place] [phone] Social History Tobacco Use Types Packs/Day Years [...] EST Nutrition [facility] DIABETES/NUTRITION [address] [place] [address] [place] [address] documented as of this encounter Visit Diagnoses Not on filedocumented in this encounter Additional Health Concerns Assessment Noted Time PHQ-9 Depression Total Score: 0 05/30/19 23 3:26 PM EDT documented as of this encounter Care Teams Facilities Administrator Relationship Specialty Start Date End Date Maddie Kim MD [address] [place] [address] PCP - General Family Medicine 07/12/20 Willie Gage 01/17/22 documented as of this encounter
[2024-04-04 14:00] LABS: Anion Gap 10 (12-20); Carbon Dioxide 24 mmol/L (22-29); Chloride 100 mmol/L (96-108); Potassium 4.4 mmol/L (3.3-5.1); Sodium 130 mmol/L (135-145)
== END 2024-04-04 12:27 | disposition home or self-care (01) ==
LOC: HO.LAB 12:26
PROVIDERS: PCP General Practice; Visit Provider Psychiatry & Neurology Psychiatry
DX: I47.10 Supraventricular tachycardia, unspecified (principal)
CPT/HCPCS: 36415; 80051; 82550; 93005

== ENCOUNTER → 2024-04-04 12:33 | Outpatient (BNV) | payer OTHER, SELFPAY | PROVIDERS: PCP General Practice; Visit Provider Internal Medicine Cardiovascular Disease | DX: R00.0 Tachycardia, unspecified (principal) | CPT/HCPCS: 93010 ==

== ENCOUNTER 2024-04-08 11:07 | Outpatient (REF) | payer OTHER, SELFPAY ==
[2024-04-08 11:31] LABS: MANUAL DIFF FLAG NO
[2024-04-08 11:58] LABS: Basophils Absolute Auto 0.1 X10*3/uL (0.0-0.2); Basophils Percent Auto 0.5 % (0-2); Eosinophils Absolute Auto 0.4 X10*3/uL (0.0-0.4); Eosinophils Percent Auto 4.3 % (0-4); Hematocrit 25.9 % (37.0-47.0); Hemoglobin 8.3 g/dl (12.0-16.0); Imm Gran Abs Auto 0.29 X10*3/uL (0.00-0.03); Lymphocytes Absolute Auto 1.8 X10*3/uL (1.2-4.9); Lymphocytes Percent Auto 19.3 % (20-40); Mean Platelet Volume 9.4 fL (9.4-12.3); Monocytes Absolute Auto 0.8 X10*3/uL (0.1-1.2); Monocytes Percent Auto 8.4 % (2-11); Neutrophils Absolute Auto 6.1 x10*3/uL (2.0-8.3); Neutrophils Percent Auto 64.5 % (45-73); Platelet Count 349 X10*3/uL (160-400); Red Blood Count 3.32 X10*6/uL (4.20-5.50); Red Cell Distribution Width 14.6 % (11.0-16.0); White Blood Count 9.5 X10*3/uL (4.8-10.8)
--- OUTSIDE RECORDS SUMMARY | 2024-04-08 12:19 | XMS_ITS | Encounter Summary ---
Author Organization [employer] Address [address] [place] [address] 7t [place] [address] Care Team Providers Care Louver Mortiser Operator Name Role Phone Maddie Kim MD Primary Care Provider [phone] Encounter Details Date Type Department Care Team (Late Contact Info) Description 01/27/2022 Telephone [facility] MEDICINE [address] [place] [address] Maddie Kim MD [address] [place] [address] Social History Tobacco Use Types Packs/Day Years [...] Description 04/18/2024 9:00 AM EST Nutrition [facility] DIABETES/NUTRITION [address] [place] [address] Rosie Vick, SHANICE [address] [place] [address] documented as of this encounter Visit Diagnoses Not on filedocumented in this encounter Care Teams Louver Mortiser Operator Relationship Specialty Start Date End Date Maddie Kim MD [address] [place] [address] PCP - General Family Medicine 07/12/20 Willie Gage 01/17/22 documented as of this encounter
--- OUTSIDE RECORDS SUMMARY | 2024-04-08 12:19 | XMS_ITS | Encounter Summary ---
Author Organization [employer] Address [address] [facility] 7t [place] [address] Care Team Providers Care 4Th Grade Teacher Name Role Phone Maddie Kim MD Primary Care Provider [phone] Encounter Details Date Type Department Care Team ([facility] st Contact Info) Description 07/29/2023 Orders Only [facility] MEDICINE [address] [place], [place] [phone] Maddie Kim MD [address] [place], [place] [phone] Social History Tobacco Use Types Packs/Day Years [...] Info) Description 04/18/2024 9:00 AM EST Nutrition [facility] DIABETES/NUTRITION [address] [place] [address] [place] [address] documented as of this encounter Visit Diagnoses Not on filedocumented in this encounter Additional Health Concerns Assessment Noted Time PHQ-9 Depression Total Score: 3 06/15/19 24 11:48 AM EDT documented as of this encounter Care Teams 4Th Grade Teacher Relationship Specialty Start Date End Date Maddie Kim MD [address] [place] [address] PCP - General Family Medicine 07/12/20 Willie Gage 01/17/22 documented as of this encounter
--- OUTSIDE RECORDS SUMMARY | 2024-04-08 12:19 | XMS_ITS | Data Portability ---
Author Organization [employer] Address [address] [place] [address] Care Team Providers Care Underwriting Analyst Name Role Phone HIM CCA OTHER [facility] OTHER Assessment Encounter Date Assessment Date Assessment LastModified by Organization Details LastModified Time 02/23/2024 02/23/2024 I provided real -time medical direction via phone for this encounter and was available for additional phone-based assistance as needed. I have reviewed and agree with the Assessment and Plan as documented by the Silk Spotter. Patient given the opportunity to ask questions. [...] The patient is now voiding normally. Per church organist on the scene the patient has stable vitals and is afebrile currently after taking Tylenol. Known UTI and would continue to take the antibiotic prescribed as well as Tylenol. Discussed red flags. Medic request urine culture sent to [facility]. Allergies: Reviewed Not available 02/23/2024 16:20:42 02/26/2024 02/26/2024 I have reviewed and agree with the assessment and plan as documented by the church organist. I provided real-time medical direction for this encounter and was immediately available to provide additional phone-based assistance as needed. History as noted in EMR and by church organist. I would add / emphasize: Patient seen [...] recorded. Lab urinalysis , dipstick 2024 025 [facility], [address] [place] [address], [phone], 5 16:34:28 culture, urine 2024 025 [facility], [address] [place], [address], 5 20:06:10 culture, urine 2024 025 [facility], [address] [place], [address], 08:07:59 rapid flu (A+B) 2024 025 [facility], [address] [place] [address], [address], 5 08:13:58 rapid SARS CoV 2 Ag, QL IA, respirator y specimen 2024 025 [facility], [address] [place] [address], [address], 5 08:13:39 culture, urine 2024 025 [facility], [address], Moh[place] [address], [place], [address], 5 04:41:56 culture, urine 2024 025 [email or web address], [address] [facility], [place], [address], 15:02:19 urinalysis , dipstick 2024 025 [facility], [address] [place] [address], [address], 07:58:13 Referral None recorded. Procedures None recorded. Surgeries None recorded. Imaging None recorded. Medication Orders Macrobid 100 mg capsule 2024 025 [id number], [address] [place], [address], 21:48:16 Macrobid 100 mg capsule 2024 025 [id number], [address] [place], [address], 5 22:18:22 Macrobid 100 mg capsule 2024 025 [facility], [address] [place], [address], 5 21:49:28 phenazopyr idine 100 mg tablet 2024 025 [facility]1026, [address] [place], [address], 5 21:48:19 Patient TargetsNo targets recorded. Patient InstructionsNo instructions recorded. Reason for Referral None Reported. Results Created Date Observation Date Name Description Value Unit Range Abnormal Flag Note LastModifiedBy Organization Detail LastModifiedTime 02/22/19 25 02/26/2024 CULTU RE, URINE , ROUTI NE culture, urine, routine SEE NOTE CULTU RE, URINE , ROUTI NE Micro Numbe r: [id number] Test Statu s: Final Speci men Sourc e: Urine Speci men Quali ty: Adequ ate Resul t: No Growt h Not Available [facility] [address], [place], [address], 02/26/2024 04:41:56 02/25/1902/29/2024 URINE CULTU RE,CO MPREH ENSIV E urine culture,comp rehensive Final report Not Available [facility] ([facility]) [address] [place], [address], 02/29/2024 10:06:00 02/25/19 25 02/29/2024 URINE CULTU RE,CO MPREH ENSIV E result 1 COMMEN T No growt h in 36 - 48 hours . Not Available [facility] ([facility]) [address] [place], [address], 02/29/2024 10:06:00 03/23/19 25 03/24/2024 URINE CULTU RE, ROUTI NE urine culture, routine Final report Not Available [facility] ([facility]) [address] [place], [address], 03/24/2024 20:06:10 03/23/19 25 03/24/2024 URINE CULTU RE, ROUTI NE result 1 COMMEN T Cultu re shows less than 10,00 0 colon y formi ng units of bacte carter per angela liter of urine . This colon y count is not gener ally consi dered to be clini rubén signi fican t. Not Available [facility] ([facility]) [address] [facility], [place], [address], 03/24/2024 20:06:10 Result Notes None recorded. Medical Equipment None Reported. Allergies Allergen ID Allergen Name Allergen Category Reaction Reaction Severity Criticality Documentation Date Start Date Code Code System Note Provider Name and Address Organization Details Recorded Time 59190 Dilantin medicatio n Not available Not available Not available 02/22/2024 39284 0 RxNorm Not Available [facility] production 14:48:20 71621 sulfameth oxazole medicatio n Not available Not available Not available 02/22/2024 36239 RxNorm Not Available [facility] 5 14:48:20 36647 trimethop rim medicatio n Not available Not available Not available 02/22/2024 69180 RxNorm Not Available [facility] 5 14:48:20 35488 Product containin g penicilli n (product) medicatio n Not available Not available Not available 02/22/2024 92796 8001 SNOMED Not Available [facility] 5 14:48:20 16796 penicilli n G benzathin e medicatio n Not available Not available Not available 02/22/2024 7982 RxNorm Not Available [facility] 5 14:48:20 77575 penicilli n G procaine medicatio n Not available Not available Not available 02/22/2024 7983 RxNorm Not Available [facility] 5 14:48:20 Medications Name Sig Start Date [...] 5 102 /min 98.8 [degF] 14 /min 744562. 08 g 98 % 98 % 130 mm[Hg] 82 mm[Hg] Not Available [facility] [employer] 5 21:29:05 Date Recorded Oxygen saturation Oxygen saturation in Arterial blood by Pulse oximetry Body temperature Body height Respiratory rate Heart rate Body weight Systolic blood pressure Diastolic blood pressure Provider Name and Address Organization Details Last Updated DateTime 5 98 % 98 % 98.4 [degF] 157.48 cm 19 /min 96 /min 937458. 712 g 125 mm[Hg] 82 mm[Hg] Not Available [facility] [employer] 5 14:39:11 Date Recorded Body temperature Heart rate Respiratory rate Oxygen saturation Oxygen saturation in Arterial blood by Pulse oximetry Systolic blood pressure Diastolic blood pressure Provider Name and Address Organization Details Last Updated DateTime 5 100.9 [degF] 90 /min 16 /min 95 % 95 % 123 mm[Hg] 85 mm[Hg] Not Available [facility] [employer] 5 11:22:20 Date Recorded Respiratory rate Body temperature Oxygen saturation Oxygen saturation in Arterial blood by Pulse oximetry Heart rate Systolic blood pressure Diastolic blood pressure Provider Name and Address Organization Details Last Updated DateTime 5 16 /min 98.2 [degF] 100 % 100 % 99 /min 124 mm[Hg] 84 mm[Hg] Not Available [facility] [employer] 5 13:03:07 Date Recorded Oxygen saturation Oxygen saturation in Arterial blood by Pulse oximetry Body temperature Heart rate Respiratory rate Systolic blood pressure Diastolic blood pressure Provider Name and Address Organization Details Last Updated DateTime 5 98 % 98 % 98.7 [degF] 94 /min 18 /min 107 mm[Hg] 73 mm[Hg] Not Available [facility] production 18:50:30 Social History None recorded. Functional Status None recorded. Mental Status None recorded. Family History Nothing Reported. Medical History No medical history recorded. Gynecological HistoryNo gynecological history recorded. Obstetrics History GPAL:G 0 P 0 0 0 0 Past Encounters Encounter ID Performer Location Encounter Start Date Encounter Closed Date Diagnosis/Indication Diagnosis SNOMED-CT Code Diagnosis ICD10 Code Diagnosis Note [id number] ARIEL YAO MD [facility] - [facility] [address] [place] [phone] 02/22/2024 21:29:01 02/23/2024 18:48:12 Urinary symptoms 072928979 R39.9 Evaluation in the field was performed by my church organist colleague, as noted above, I provided real-time [...] first dose was administer ed by the church organist. -To alleviate the burning sensation, a prescripti [...] or flank pain or any other concerns. [id number] Fawn Coelho MD Main - [facility] [address] [place] [phone] 02/23/2024 14:34:12 02/23/2024 18:56:04 Urinary symptoms [id number] R39.9 [id number] Aramis Gallardo MD Main - [facility] [address] [place] [phone] 02/26/2024 11:22:16 02/28/2024 11:56:29 Urinary symptoms 074814046 R39.9 Fever 440363479 R50.9 [id number] Jessica Hadley MD Main - [address] [phone] 03/23/2024 13:03:05 03/25/2024 16:45:46 Urinary symptoms [id number] R39.9 As noted, we were called to see this patient regarding concerns of urinary symptoms. Evaluation in the field was performed by my church organist colleague, as noted above, I provided real-time [...] changes to consciousn ess, chest pain, dypsnea. [id number] Alisia Aguirre MD Main - [address] [phone] 04/01/2024 18:50:28 04/01/2024 19:49:17 Low back pain [id number] M54.50 48 year old female with a [...] of the lower extremitie s. Prior to [facility]'s visit she took an excedrin which is helping bring the paind own. Exam notable for normal vital signs, neurologic exam is grossly normal. Presentati on consistent with acute on chronic lumbar radiculopa thy, no red flags noted. I have reviewed and agree with the assessment and plan as documented by the church organist. I provided real-time medical direction for this [...] Fernandez Member ID Guarantor Name 02/22/2024 1 [facility] - DOS ON OR AFTER 2022 - DUAL ELIGIBLE - CORRECTION OPTIONS AND ONE CARE (MEDICARE REPLACEMENT/ADV ANTAGE - HMO) Atiya Dotson [id number] Atiya Dotson 02/23/2024 1 [facility] - DOS ON OR AFTER 2022 - DUAL ELIGIBLE - CORRECTION OPTIONS AND ONE CARE (MEDICARE REPLACEMENT/ADV ANTAGE - HMO) Atiya Dotson [id number] Atiya Dotson 02/26/2024 1 [facility] - DOS ON OR AFTER 2022 - DUAL ELIGIBLE - CORRECTION OPTIONS AND ONE CARE (MEDICARE REPLACEMENT/ADV ANTAGE - HMO) Atiya Dotson [id number] Atiya Dotson 03/23/2024 1 [facility] [employer] [facility] - DOS ON OR AFTER 2022 - DUAL ELIGIBLE - CORRECTION OPTIONS AND ONE CARE (MEDICARE REPLACEMENT/ADV ANTAGE - HMO) Atiya Dotson [id number] Atiya Dotson 04/01/2024 1 [facility] [employer] [facility] - DOS ON OR AFTER 2022 - DUAL ELIGIBLE - CORRECTION OPTIONS AND ONE CARE (MEDICARE REPLACEMENT/ADV ANTAGE - HMO) Atiya Dotson [id number] Atiya Dotson Notes Date Note Type Note [...] any additional information to process this visit. Silk Spotter Organization Information for [employer] Legal Name: [facility].? Address: [address] [place] [address] Angio Technologist: Benjy Haile MD [facility] No.: [id number] Silk Spotter POC Test Results from [employer] [facility]ILDA Urine Dipstick (21:31:12) Urine leukocytes: 125+++ [...] ...................... ...................... ...................... ...................... ...................... ...................... ......... Silk Spotter Note From Summer [place]: Disp for [...] for a culture sample. Consulted with [facility] Dr. Yao. Dr. Yao confirmed UTI with urine dipstick results. Dr. Yao ordered 100mgs of Macrobid PO. Dr. Yao sent antibiotic and Pyridium to pharmacy. Dr. Yao advised patient to stop drinking caffeine and increase fluids as much as possible. Dr. Yao advised patient if UTI symptoms do not improved on antibiotic in one to two days, schedule another appointment with [facility] for urine culture. Patient understood. Patient administered 100mgs of macrobid PO. Patient educated on red flags/risk factors. All times approx.. ...................... ...................... ...................... ...................... ...................... ...................... ......... [facility] Consulted: Ariel Yao ...................... ...................... ...................... ...................... ...................... ...................... ......... Disposition: Lizette YAO MD [address] [facility],[address], [place], [address], [employer] 02/22/2024 22:29:56 02/23/2024 text/html CRC Nurse Triage [...] ...................... ...................... ...................... ...................... ...................... ...................... ......... Silk Spotter Note From Elias Garrison: Pt chief complaint today of fever/ uti symptoms going on for x 1 week. Pt was seen by [facility] personnel 1 day prior to her [facility] meeting today, urine dip was taken and positive for leukocytes and nitrates. [facility] medic was not able to acquire [...] blurred vision. Pt has taken Tylenol before [facility] arrival for fever suppression.Nonneural focal exam, afebrile, vitals WNL, lungs are clear bilaterally. Benign abdominal assessment, no lower extremity edema noted. Pt is CAOX4 with GCS of 15. Urine culture acquired, no urine dip due to positivity yesterday.[facility] Fawn Coelho consultedPt informed, to continue taking her antibiotic which was prescribed prior to her [facility] visit today. Pt told to intake fluids and take 1 gram of Tylenol every 8 hours in a 24 hour period as needed for general aches and fever. Pt also educated on red flag S&S and informed to call emergency services if any present. ...................... ...................... ...................... ...................... ...................... ...................... ......... [facility] Consulted: Fawn Coelho ...................... ...................... ...................... ...................... ...................... ...................... ......... Disposition: Fulfilled Fawn Coelho MD [address] [facility],[address], [place], [address], [employer] [facility] 02/23/2024 16:21:22 02/26/2024 text/html CRC Nurse Triage Notes (Tami Ambriz - RN): Chief Complaints: Common cold symptoms, Cough, Headache PMH: Bipolar Disorder, Gastroesophageal Reflux Disease (GERD), Hypertension PMH Reviewed at 02/26/2024: Allergies Reviewed at 02/26/2024:34 Comments: Patient called [...] relief. She would like to be evaluated. Silk Spotter Organization Information for [employer] Legal Name: [facility] Address: [address] [place] [address], Angio Technologist: Jeff Bautista MD [place] No.: [id number] Silk Spotter POC Test Results from [employer] Rapid COVID antigen (11:21:) COVID: - Rapid influenza antigen (11:21:02) Flu: - ...................... ...................... ...................... ...................... ...................... ...................... ......... Silk Spotter Note From Sandro Kearney: This 48-year-old female [...] ...................... ...................... ...................... ...................... ...................... ...................... ......... [facility] Consulted: Aramis Gallardo ...................... ...................... ...................... ...................... ...................... ...................... ......... Disposition: Fulfilled Aramis Gallardo MD [address] [place] [address],[address], [place], [address], [employer] 02/28/2024 06:38:26 03/23/2024 text/html CRC Nurse Triage [...] Disease (GERD), Hypertension PMH Reviewed at 03/23/2024 12: Allergies Reviewed at 03/23/2024 - 12:27 Comments: Gravity Meter Observer verified the Pt.'s name//address and phone number. [...] Tylenol for pain - Wellness visit requested Silk Spotter Organization Information for Sandro Kearney [employer] Legal Name: [facility] Address: [address] [place] [address], [place] [address], Angio Technologist: Jeff Bautista MD CLIA No.: [id number] Silk Spotter POC Test Results from [employer] - ALS Urine Dipstick (13:07:26) Urine leukocytes: trace LEXIE Urine nitrites: - NIT Urine urobilinogen: - URO Urine protein: - PRO Urine pH: 5.0 pH Urine blood: - BLO Urine specific gravity: 1.010 SG Urine ketones: - KET Urine bilirubin: - MARCEL Urine glucose: - GLU ...................... ...................... ...................... ...................... ...................... ...................... ......... Silk Spotter Note From Sandro Kearney: This 48-year-old female [...] ...................... ...................... ...................... ...................... ...................... ......... [facility] Consulted: Jessica Hadley ...................... ...................... ...................... ...................... ...................... ...................... ......... Disposition: Fulfilled Jessica Hadley MD [address] [place] [address],[address] [facility], [place], [address] [employer] 03/23/2024 13:41:47 04/01/2024 text/html CRC Nurse Triage Notes (Yoli Dalal - MAJO): Reason For Request: Pt reporting 9 out [...] ...................... ...................... ...................... ...................... ...................... ...................... ......... Silk Spotter Note From Inna Galvan: Sent to a [...] ...................... ...................... ...................... ...................... ...................... ......... [facility] Consulted: Alisia Aguirre ...................... ...................... ...................... ...................... ...................... ...................... ......... Disposition: Fulfilled Alisia Aguirre MD [address] [facility],[address] [facility], [place], [address], ARIELLE CHRISTIANSEN 04/01/2024 19:22:50 OBGyn Episode No OBEpisode recorded.
--- OUTSIDE RECORDS SUMMARY | 2024-04-08 12:19 | XMS_ITS | Encounter Summary ---
Author Organization [employer] Address [address] [facility] 7t [place] [address] Care Team Providers Care Speedboat Operator Name Role Phone Maddie Kim MD Primary Care Provider [phone] Reason for Visit * Reason Onset Date Comments Nutrition Medication Question 05/30/2023 Encounter Details Date Type Department Care Team ([facility] Contact Info) Description 05/30/2023 Telephone [facility] MEDICINE [address] [place], [place] [phone] Maddie Kim MD [address] [place], [place] [phone] Nutrition Medication Question Social History Tobacco Use [...] Info) Description 04/18/2024 9:00 AM EST Nutrition [facility] DIABETES/NUTRITION [address] [place] [address] [place] [address] documented as of this encounter Visit Diagnoses Not on filedocumented in this encounter Additional Health Concerns Assessment Noted Time PHQ-9 Depression Total Score: 0 05/30/19 23 3:26 PM EDT documented as of this encounter Care Teams Speedboat Operator Relationship Specialty Start Date End Date Maddie Kim MD [address] [place] [address] PCP - General Family Medicine 07/12/20 Willie Gage 01/17/22 documented as of this encounter
--- OUTSIDE RECORDS SUMMARY | 2024-04-08 12:19 | XMS_ITS | Encounter Summary ---
Author Organization [employer] Address [address] [facility] [address]t [place] [address] Care Team Providers Care Primer Inserting Machine Operator Name Role Phone Maddie Kim MD Primary Care Provider [phone] Encounter Details Date Type Department Care Team ([facility] st Contact Info) Description 05/15/2023 Orders Only [facility] MEDICINE [address] [place], [place] [phone] Maddie Kim MD [address] [place], [place] [phone] Social History Tobacco Use Types Packs/Day Years [...] 04/18/2024 9:00 AM EST Nutrition [facility] DIABETES/NUTRITION [address] [place] [address] [place] [address] documented as of this encounter Visit Diagnoses Not on filedocumented in this encounter Additional Health Concerns Assessment Noted Time PHQ-9 Depression Total Score: 0 05/30/19 23 3:26 PM EDT documented as of this encounter Care Teams Primer Inserting Machine Operator Relationship Specialty Start Date End Date Maddie Kim MD [address] [place] [address] PCP - General Family Medicine 07/12/20 Willie Gage 01/17/22 documented as of this encounter
--- OUTSIDE RECORDS SUMMARY | 2024-04-08 12:20 | XMS_ITS | Encounter Summary ---
Author Organization [employer] Address 75 [facility] 7t [place] [address] Care Team Providers Care Marble Setter Helper Name Role Phone Maddie Kim MD Primary Care Provider [phone] Reason for Visit * Reason Onset Date Comments Med Refill 04/12/2023 Encounter Details Date Type Department Care Team ([facility] st Contact Info) Description 04/12/2023 Refill [facility] MEDICINE [address] [place], [place] [phone] Maddie Kim MD 230 [place], [place] [phone] Chronic bilateral low back pain without sciatica [...] Description 04/18/2024 9:00 AM EST Nutrition [facility] DIABETES/NUTRITION [address] [place] [address] [place] [address] documented as of this encounter Visit Diagnoses Diagnosis Chronic bilateral low back pain without sciatica documented in this encounter Additional Health Concerns Assessment Noted Time PHQ-9 Depression Total Score: 0 05/30/19 23 3:26 PM EDT documented as of this encounter Care Teams Marble Setter Helper Relationship Specialty Start Date End Date Maddie Kim MD [address] [place] [address] PCP - General Family Medicine 07/12/20 Willie Gage 01/17/22 documented as of this encounter
--- OUTSIDE RECORDS SUMMARY | 2024-04-08 12:20 | XMS_ITS | Continuity of Care Document ---
Author Organization [facility] [employer] [facility], [employer] [facility] Address [address] [place] [phone] Care Team Providers Care Motor Equipment Commanding Officer Name Role Phone HIM [facility] OTHER [facility] OTHER Assessment No assessment recorded. Plan of Treatment Reminders Order Date Submit Date Provider Last Modified By Organization Details Last Modified Time Details Appointments None recorded. Lab urinalysis , dipstick 2024 025 [facility], [address] [place] [address], [id number], 16:34:28 culture, urine 2024 025 [facility], [address] [place] [address], [address], 20:06:10 Referral None recorded. Procedures None recorded. [...] Name and Address Organization Details Recorded Time 18895 Dilantin medicatio n Not available Not available Not available 02/22/202492915 0 RxNorm Not Available [facility] - production 14:48:20 84487 sulfameth oxazole medicatio n Not available Not available Not available 02/22/2024 85127 RxNorm Not Available [facility] - production 14:48:20 42845 trimethop rim medicatio n Not available Not available Not available 02/22/2024 09337 RxNorm Not Available [facility] - production 14:48:20 81672 Product containin g penicilli n (product) medicatio n Not available Not available Not available 02/22/2024 36084 8001 SNOMED Not Available [facility] - production 14:48:20 52501 penicilli n G benzathin e medicatio n Not available Not available Not available 02/22/2024 7982 RxNorm Not Available [facility] - production 14:48:20 79465 penicilli n G procaine medicatio n Not available Not available Not available 02/22/2024 7983 RxNorm Not Available [facility] - production 14:48:20 Medications Name Sig Start [...] SNOMED-CT Code Diagnosis ICD10 Code Diagnosis Note [id number] KALYN YAO MD Main - [facility] [address] [place] [phone] 02/22/2024 21:29:01 02/23/2024 18:48:12 Urinary symptoms [id number] R39.9 Evaluation in the field was performed by my sand molder colleague, as noted above, I provided real-time [...] for leukocytes , nitrites, blood, and ketones.Al lergies: Reviewed. Impression :UTI Plan:-UA findings are consistent with a UTI. Given the lack of systemic symptoms and CVA tenderness , the diagnosis is most likely simple cystitis.- Prescripti on for Macrobid 100 mg BID for 5 days sent to the patient's pharmacy. The first dose was administer ed by the sand molder. -To alleviate the burning sensation, a prescripti [...] or flank pain or any other concerns. [id number] Fawn Coelho MD Main - [facility] [address] [place] [phone] 02/23/2024 14:34:12 02/23/2024 18:56:04 Urinary symptoms [id number] R39.9 [id number] Aramis Gallardo MD Main - [facility] [address] [place] [phone] 02/26/2024 11:22:16 02/28/2024 11:56:29 Urinary symptoms [id number] R39.9 Fever [id number] R50.9 [id number] Jessica Hadley MD Main - [facility] [address] [place] [phone] 03/23/2024 13:03:05 03/25/2024 16:45:46 Urinary symptoms [id number] R39.9 As noted, we were called to see this patient regarding concerns of urinary symptoms. Evaluation in the field was performed by my sand molder colleague, as noted above, I provided real-time [...] Fernandez Member ID Guarantor Name 03/23/2024 1 [facility] - DOS ON OR AFTER 2022 - DUAL ELIGIBLE - PENITENTIARY OPTIONS AND ONE CARE (MEDICARE REPLACEMENT/ADV ANTAGE - HMO) Atiya Dotson [id number] Atiya Dotson Notes Date Note Type Note [...] 03/23/2024 Allergies Reviewed at 03/23/2024 Comments: Manager Card verified the Pt.'s name//address and phone number. [...] Tylenol for pain - Wellness visit requested Carrier Associate Organization Information for Sandro Kearney [employer] Legal Name: [facility] Address: [address] [place] [address], Direct Support Professional: Jeff Bautista MD [facility] No.: [id number] Carrier Associate POC Test Results from Sandro Kearney Urine Dipstick (13:07:26) Urine leukocytes: trace LEXIE Urine nitrites: - NIT Urine urobilinogen: - URO Urine protein: - PRO Urine pH: 5.0 pH Urine blood: - BLO Urine specific gravity: 1.010 SG Urine ketones: - KET Urine bilirubin: - MARCEL Urine glucose: - GLU ...................... ...................... ...................... ...................... ...................... ...................... ......... Carrier Associate Note From Sandro Kearney: This 48-year-old female [...] ...................... ...................... ...................... ...................... ...................... ...................... ......... [facility] Consulted: Jessica Hadley ...................... ...................... ...................... ...................... ...................... ...................... ......... Disposition: Fulfilled Jessica Hadley MD [address] [facility],[address], [place], [address], [place] - [facility] 03/23/2024 13:41:47 OBGyn Episode No OBEpisode recorded.
--- OUTSIDE RECORDS SUMMARY | 2024-04-08 12:20 | XMS_ITS | Encounter Summary ---
Author Organization [employer] Address 75 [facility] 7t [place] [address] Care Team Providers Care Relish Maker Name Role Phone Maddie Kim MD Primary Care Provider [phone] Reason for Visit * Reason Onset Date Comments NUTRITION APPT REQUEST 03/20/2024 Encounter Details Date Type Department Care Team ([facility] Contact Info) Description 03/20/2024 Telephone [facility] MEDICINE [address] [place] [address] [place], [place] [phone] NUTRITION APPT REQUEST Social History Tobacco Use [...] Info) Description 04/18/2024 9:00 AM EST Nutrition [facility] DIABETES/NUTRITION [address] [place] [address] [place] [address] documented as of this encounter Visit Diagnoses Not on filedocumented in this encounter Additional Health Concerns Assessment Noted Time PHQ-9 Depression Total Score: 3 06/15/19 24 11:48 AM EDT documented as of this encounter Care Teams Relish Maker Relationship Specialty Start Date End Date Maddie Kim MD 230 [place] [address] PCP - General Family Medicine 07/12/20 Willie Gage 01/17/22 documented as of this encounter
--- OUTSIDE RECORDS SUMMARY | 2024-04-08 12:20 | XMS_ITS | Encounter Summary ---
Author Organization [employer] Address [address] [place] [address] 7t [place] [address] Care Team Providers Care Outer Diameter Technician Name Role Phone Maddie Kim MD Primary Care Provider [phone] Reason for Visit * Reason Onset Date Comments No Show 04/02/2024 Encounter Details Date Type Department Care Team ([facility] Contact Info) Description 04/02/2024 Telephone [facility] MEDICINE [address] [place], [place] [phone] Maddie Kim MD 230 [place], [place] [phone] No Show Social History Tobacco Use Types [...] 04/18/2024 9:00 AM EST Nutrition [facility] DIABETES/NUTRITION [address] [place] [address] Rosie Vick, SHANICE [address] [place] [address] documented as of this encounter Visit Diagnoses Not on filedocumented in this encounter Additional Health Concerns Assessment Noted Time PHQ-9 Depression Total Score: 3 06/15/19 24 11:48 AM EDT documented as of this encounter Care Teams Outer Diameter Technician Relationship Specialty Start Date End Date Maddie Kim MD [address] [place] [address] PCP - General Family Medicine 07/12/20 Willie Gage 01/17/22 documented as of this encounter
--- OUTSIDE RECORDS SUMMARY | 2024-04-08 12:20 | XMS_ITS | Encounter Summary ---
Author Organization [employer] Address 75 [facility] 7t [place] [address] Care Team Providers Care Cytopathology Technologist Name Role Phone Maddie Kim MD Primary Care Provider [phone] Reason for Visit * Reason Onset Date Comments Durable Medical Equipment 03/16/2022 Encounter Details Date Type Department Care Team ([facility] st Contact Info) Description 03/16/2022 Telephone [facility] MEDICINE 230 [place], [place] [phone] Maddie Kim MD 230 [place], [place] [phone] Durable Medical Equipment Social History Tobacco Use [...] it can fax to her landlord at [phone]. She would like the script to be to the [facility], [address] [place] [address] If any concerns please contact pt at [phone] documented in this encounter Plan of Treatment Upcoming Encounters Date Type Department Care Team ([facility] st Contact Info) Description 04/18/2024 9:00 AM EST Nutrition [facility] DIABETES/NUTRITION [address] [place] [address] [place] [address] documented as of this encounter Visit Diagnoses Not on filedocumented in this encounter Care Teams Cytopathology Technologist Relationship Specialty Start Date End Date Maddie Kim MD 230 [place] [address] PCP - General Family Medicine 07/12/20 Willie Gage 01/17/22 documented as of this encounter
--- OUTSIDE RECORDS SUMMARY | 2024-04-08 12:20 | XMS_ITS | Encounter Summary ---
Author Organization [employer] Address 75 [facility] 7t [place] [address] Care Team Providers Care Panel Flow Machine Operator Name Role Phone Maddie Kim MD Primary Care Provider [phone] Reason for Visit * Reason Onset Date Comments Medication Question 07/05/2022 Encounter Details Date Type Department Care Team ([facility] Contact Info) Description 07/05/2022 Telephone [facility] MEDICINE 230 [place], [place] [phone] Maddie Kim MD 230 [place], [place] [phone] Medication Question Social History Tobacco Use Types [...] 04/18/2024 9:00 AM EST Nutrition [facility] DIABETES/NUTRITION [address] [place] [address] [place] [address] documented as of this encounter Visit Diagnoses Diagnosis History of arthroplasty of right knee Arthropathy Unspecified arthropathy, site unspecified documented in this encounter Additional Health Concerns Assessment Noted Time PHQ-9 Depression Total Score: 0 05/30/19 23 3:26 PM EDT documented as of this encounter Care Teams Panel Flow Machine Operator Relationship Specialty Start Date End Date Maddie Kim MD [address] [place] [address] PCP - General Family Medicine 07/12/20 Willie Gage 01/17/22 documented as of this encounter
--- OUTSIDE RECORDS SUMMARY | 2024-04-08 12:20 | XMS_ITS | Encounter Summary ---
Author Organization [employer] Address 75 [facility] 7t [place] [address] Care Team Providers Care Mortgage Professional Name Role Phone Maddie Kim MD Primary Care Provider [phone] Reason for Visit * Reason Onset Date Comments Med Refill 05/10/2023 Encounter Details Date Type Department Care Team ([facility] st Contact Info) Description 05/10/2023 Refill [facility] MEDICINE 230 [place], [place] [phone] Maddie Kim MD [address] [place], [place] [phone] Chronic bilateral low back pain without sciatica [...] EST Nutrition [facility] DIABETES/NUTRITION [address] [place] [address] [place] [address] documented as of this encounter Visit Diagnoses Diagnosis Chronic bilateral low back pain without sciatica documented in this encounter Additional Health Concerns Assessment Noted Time PHQ-9 Depression Total Score: 0 05/30/19 23 3:26 PM EDT documented as of this encounter Care Teams Mortgage Professional Relationship Specialty Start Date End Date Maddie Kim MD [address] [place] [address] PCP - General Family Medicine 07/12/20 Willie Gage 01/17/22 documented as of this encounter
--- OUTSIDE RECORDS SUMMARY | 2024-04-08 12:20 | XMS_ITS | Encounter Summary ---
Author Organization [employer] Address [address] [place] [address] 7t [place] [address] Care Team Providers Care Commercial Painter Name Role Phone Maddie Kim MD Primary Care Provider [phone] Encounter Details Date Type Department Care Team (Late Contact Info) Description 11/14/2022 Orders Only [facility] MEDICINE 230 [place], [place] [phone] Maddie Kim MD 230 [place], [place] [phone] Social History Tobacco Use Types Packs/Day Years [...] Description 04/18/2024 9:00 AM EST Nutrition [facility] DIABETES/NUTRITION 230 [place], [place] [phone] Rosie Vick RD [address] [place], [place] [phone] documented as of this encounter Visit Diagnoses Not on filedocumented in this encounter Additional Health Concerns Assessment Noted Time PHQ-9 Depression Total Score: 0 05/30/19 23 3:26 PM EDT documented as of this encounter Care Teams Commercial Painter Relationship Specialty Start Date End Date Maddie Kim MD 230 [place] [address] PCP - General Family Medicine 07/12/20 Willie Gage 01/17/22 documented as of this encounter
--- OUTSIDE RECORDS SUMMARY | 2024-04-08 12:20 | XMS_ITS | Encounter Summary ---
Author Organization [employer] Address 75 [facility] 7t [place] [address] Care Team Providers Care Cost Control Specialist Name Role Phone Maddie Kim MD Primary Care Provider [phone] Reason for Visit * Reason Onset Date Comments Verbal orders/ Medication question 05/08/2023 Encounter Details Date Type Department Care Team ([facility] Contact Info) Description 05/08/2023 Telephone [facility] MEDICINE [address] [place], [place] [phone] Maddie Kim MD [address] [place], [place] [phone] Verbal orders/ Medication question Social History Tobacco [...] 05/09/2023 9:54 AM EDT TC placed to [place] at the [facility] and gave VO for fpc for 3 times a week. Pt medications were also reconciled and pt reports using Viviscal OTC for hair growth and Calcium + VitD supplements. * Telephone Encounter - Toña Castillo - 05/08/2023 4:20 PM EDT Tc from [facility] requesting some verbal orders reconciliation for skill nursing 3 times a week. [place] is also requesting a call back to speak about patient's medications. documented in this encounter Plan of Treatment Upcoming Encounters Date Type Department Care Team (Late st Contact Info) Description 04/18/2024 9:00 AM EST Nutrition [facility] DIABETES/NUTRITION [address] [place] [address] [place] [address] documented as of this encounter Visit Diagnoses Not on filedocumented in this encounter Additional Health Concerns Assessment Noted Time PHQ-9 Depression Total Score: 0 05/30/19 23 3:26 PM EDT documented as of this encounter Care Teams Cost Control Specialist Relationship Specialty Start Date End Date Maddie Kim MD [address] [place] [address] PCP - General Family Medicine 07/12/20 Willie Gage 01/17/22 documented as of this encounter
--- OUTSIDE RECORDS SUMMARY | 2024-04-08 12:20 | XMS_ITS | Encounter Summary ---
Author Organization [employer] Address 75 [facility] 7t [place] [address] Care Team Providers Care Portable Canteen Operator Name Role Phone Maddie Kim MD Primary Care Provider [phone] Encounter Details Date Type Department Care Team ([facility] st Contact Info) Description 02/22/2024 Orders Only [facility] MEDICINE [address] [place], [place] [phone] Maddie Kim MD 230 [place], [place] [phone] Social History Tobacco Use Types Packs/Day Years [...] 04/18/2024 9:00 AM EST Nutrition [facility] DIABETES/NUTRITION [address] [place] [address] [place] [address] documented as of this encounter Visit Diagnoses Not on filedocumented in this encounter Additional Health Concerns Assessment Noted Time PHQ-9 Depression Total Score: 3 06/15/19 24 11:48 AM EDT documented as of this encounter Care Teams Portable Canteen Operator Relationship Specialty Start Date End Date Maddie Kim MD 230 [place] [address] PCP - General Family Medicine 07/12/20 Willie Gage 01/17/22 documented as of this encounter
--- OUTSIDE RECORDS SUMMARY | 2024-04-08 12:20 | XMS_ITS | Encounter Summary ---
Author Organization [employer] Address [address] [facility] 7t [place] [address] Care Team Providers Care Mercury Recoverer Name Role Phone Maddie Kim MD Primary Care Provider [phone] Reason for Visit * Reason Onset Date Comments Call Back Request 07/26/2023 Encounter Details Date Type Department [facility] Description 07/26/2023 Telephone [facility] MEDICINE [address] [place] [address] Maddie Kim MD 230 [place], [place] [phone] Call Back Request Social History Tobacco Use [...] 07/27/2023 9:31 AM EDT Tc returned to [facility], questioning pt.'s risperidone inj rx on med list they received. Looking back in chart, this was discontinued after inpatient hosp in 2020 due to noncompliance with injections. This was the last time [facility] was prescribed[facility] for accuracy, thank you! * Telephone Encounter - Zach Carlson - 07/26/2023 4:12 PM EDT Tc from [facility] with Willie Gage requesting a call back for a med reconciliation. Please contact Georgie at [phone]. documented in this encounter Plan of Treatment Upcoming Encounters Date Type Department Care Team (Late st Contact Info) Description 04/18/2024 9:00 AM EST Nutrition [facility] DIABETES/NUTRITION 230 [place], [place] [phone] Rosie Vick, RD 230 [place], [place] [phone] documented as of this encounter Visit Diagnoses Not on filedocumented in this encounter Additional Health Concerns Assessment Noted Time PHQ-9 Depression Total Score: 3 06/15/19 24 11:48 AM EDT documented as of this encounter Care Teams Mercury Recoverer Relationship Specialty Start Date End Date Maddie Kim MD 230 [place] [address] PCP - General Family Medicine 07/12/20 Willie Gage 01/17/22 documented as of this encounter
--- OUTSIDE RECORDS SUMMARY | 2024-04-08 12:20 | XMS_ITS | Encounter Summary ---
Author Organization [employer] Address [address] [place] [address] 7t [place] [address] Care Team Providers Care Mold Cooler Name Role Phone Maddie Kim MD Primary Care Provider [phone] Encounter Details Date Type Department Care Team ([facility] Contact Info) Description 06/26/2022 Abstract [facility] MEDICINE [address] [place] [address] Maddie Kim MD [address] [place] [address] Social History Tobacco Use Types Packs/Day Years [...] Upcoming Encounters Date Type Department Care Team ([facility] Contact Info) Description 04/18/2024 9:00 AM EST Nutrition [facility] DIABETES/NUTRITION [address] [place] [address] Rosie Vikc, SHANICE [address] [place], [place] [phone] documented as of this encounter Visit Diagnoses Not on filedocumented in this encounter Additional Health Concerns Assessment Noted Time PHQ-9 Depression Total Score: 0 05/30/19 23 3:26 PM EDT documented as of this encounter Care Teams Mold Cooler Relationship Specialty Start Date End Date Maddie Kim MD 230 [place], [place] [phone] PCP - General Family Medicine 07/12/20 Willie Gage 01/17/22 documented as of this encounter
--- OUTSIDE RECORDS SUMMARY | 2024-04-08 12:20 | XMS_ITS | Encounter Summary ---
Author Organization [employer] Address [address] [place] [address] 7t [place] [address] Care Team Providers Care Flare Maker Name Role Phone Maddie Kim MD Primary Care Provider [phone] Reason for Visit * Reason Onset Date Comments FYI 02/15/2024 Encounter Details Date Type Department Care Team ([facility] Contact Info) Description 02/15/2024 Telephone [facility] MEDICINE 230 [place], [place] [phone] Maddie Kim MD 230 [place], [place] [phone] FY Social History Tobacco Use Types Packs/Day [...] any questions you can contact Lauren at [phone]. documented in this encounter Plan of Treatment Upcoming Encounters Date Type Department Care Team (Late st Contact Info) Description 04/18/2024 9:00 AM EST Nutrition [facility] DIABETES/NUTRITION 230 [place] [address] [place] [address] documented as of this encounter Visit Diagnoses Not on filedocumented in this encounter Additional Health Concerns Assessment Noted Time PHQ-9 Depression Total Score: 3 06/15/19 24 11:48 AM EDT documented as of this encounter Care Teams Flare Maker Relationship Specialty Start Date End Date Maddie Kim MD [address] [place] [address] PCP - General Family Medicine 07/12/20 Willie Gage 11/29/22 documented as of this encounter
--- OUTSIDE RECORDS SUMMARY | 2024-04-08 12:20 | XMS_ITS | Encounter Summary ---
Author Organization [employer] Address [address] [facility] 7t [place] [address] Care Team Providers Care Shirrer Name Role Phone Maddie Kim MD Primary Care Provider [phone] Encounter Details Date Type Department Care Team [...] Info) Description 04/18/2024 9:00 AM EST Nutrition [facility] DIABETES/NUTRITION [address] [place] [address] [place] [address] documented as of this encounter Visit Diagnoses Not on filedocumented in this encounter Additional Health Concerns Assessment Noted Time PHQ-9 Depression Total Score: 3 06/15/19 24 11:48 AM EDT documented as of this encounter Care Teams Shirrer Relationship Specialty Start Date End Date Maddie Kim MD 230 [place] [address] PCP - General Family Medicine 07/12/20 Willie Gage 01/17/22 documented as of this encounter
--- OUTSIDE RECORDS SUMMARY | 2024-04-08 12:20 | XMS_ITS | Encounter Summary ---
Author Organization [email or web address] Address [address] [place] [address] 7t [place] [address] Care Team Providers Care Financial Engineer Name Role Phone Maddie iKm MD Primary Care Provider [phone] Reason for Visit * Reason Onset Date Comments Durable Medical Equipment 03/02/2022 Encounter Details Date Type Department Care Team ([facility] st Contact Info) Description 03/02/2022 Telephone [facility] MEDICINE [address] [place] [address] Shayna Pritchett, MAJO Durable Medical Equipment Social [...] send to L&C Please contact pt at [phone] documented in this encounter Plan of Treatment Upcoming Encounters Date Type Department Care Team (Late st Contact Info) Description 04/18/2024 9:00 AM EST Nutrition [facility] DIABETES/NUTRITION [address] [place] [address] [place] [address] documented as of this encounter Visit Diagnoses Not on filedocumented in this encounter Care Teams Financial Engineer Relationship Specialty Start Date End Date Maddie Kim MD [address] [place] [address] PCP - General Family Medicine 07/12/20 Willie Gage 01/17/22 documented as of this encounter
--- OUTSIDE RECORDS SUMMARY | 2024-04-08 12:20 | XMS_ITS | Encounter Summary ---
Author Organization [employer] Address [address] [place] [address] 7t [place] [address] Care Team Providers Care Mail Inserter Name Role Phone Maddie Kim MD Primary Care Provider [phone] Encounter Details Date Type Department Care Team ([facility] Contact Info) Description 07/05/2022 Orders Only [facility] MEDICINE [address] [place], [place] [phone] Maddie Kim MD [address] [place], [place] [phone] Social History Tobacco Use Types Packs/Day Years [...] Nutrition [facility] DIABETES/NUTRITION [address] [place], [place] [phone] Rosie Vick [address] [place], [place] [phone] documented as of this encounter Visit Diagnoses Not on filedocumented in this encounter Additional Health Concerns Assessment Noted Time PHQ-9 Depression Total Score: 0 05/30/19 23 3:26 PM EDT documented as of this encounter Care Teams Mail Inserter Relationship Specialty Start Date End Date Maddie Kim MD [address] [place] [address] PCP - General Family Medicine 07/12/20 Willie Gage 01/17/22 documented as of this encounter
--- OUTSIDE RECORDS SUMMARY | 2024-04-08 12:20 | XMS_ITS | Encounter Summary ---
Author Organization [employer] Address [address] [facility] 7t [place] [address] Care Team Providers Care Continuity Director Name Role Phone Maddie Kim MD Primary Care Provider [phone] Reason for Visit * Reason Comments Transition Of Care (Tcm) HDF- Unschedule d- PATIENT REQ. A HDF WITHIN 7 DAYS AND ONLY WITH HER PCP Encounter Details Date Type Department Care Team ([facility] st Contact Info) Description 03/28/2024 Patient Outreach [facility] MEDICINE [address] [place], [place] [phone] Maddie Kim MD [address] [place], [place] [phone] Transition Of Care (Tcm) (HDF- Unscheduled- PATIENT [...] t he electric, gas, oil or water [employer] threatened to shut off services in your [...] 1:27 PM EST TC placed to patient [phone] in regards to below message. Patient did not answer, RN left requesting CB to red team nurses. RN will re-attempt tomorrow if no CB. documented in this encounter Miscellaneous Notes * Significant Event - Ruby Summers - 03/28/2024 1:34 PM EST 03/28/24 1332 Hospital Discharges and Admission for [facility] Type of Visit Hospital Admission Date of Admission/Visit 03/25/24 Date of Discharge 03/27/24 Facility [facility] Diagnosis Hyponatremia Disposition Discharged Home Follow-Up Actions [...] AM EST Nutrition [facility] DIABETES/NUTRITION [address] [place], [place] [phone] Rosie Vick, SHANICE [address] [place] [address] documented as of this encounter Visit Diagnoses Not on filedocumented in this encounter Additional Health Concerns Assessment Noted Time PHQ-9 Depression Total Score: 3 06/15/19 24 11:48 AM EDT documented as of this encounter Care Teams Continuity Director Relationship Specialty Start Date End Date Maddie Kim MD [address] [place] [address] PCP - General Family Medicine 07/12/20 Willie Gage 01/17/22 documented as of this encounter
--- OUTSIDE RECORDS SUMMARY | 2024-04-08 12:20 | XMS_ITS | Continuity of Care Document ---
Author Organization [employer] Address [address] [place] [phone] Care Team Providers Care Dietary Tech Name Role Phone HIM [facility] OTHER [facility] OTHER Assessment No assessment recorded. Plan of [...] Name and Address Organization Details Recorded Time 66844 Dilantin medicatio n Not available Not available Not available 02/22/2024 34220 0 RxNorm Not Available [facility] - production 5 14:48:20 60423 sulfameth oxazole medicatio n Not available Not available Not available 02/22/2024 61877 RxNorm Not Available [facility] - production 5 14:48:20 18988 trimethop rim medicatio n Not available Not available Not available 02/22/2024 78473 RxNorm Not Available [facility] - production 5 14:48:20 00270 Product containin g penicilli n (product) medicatio n Not available Not available Not available 02/22/2024 02317 8001 SNOMED Not Available [facility] - production 5 14:48:20 26947 penicilli n G benzathin e medicatio n Not available Not available Not available 02/22/2024 7982 RxNorm Not Available [facility] - production 5 14:48:20 87309 penicilli n G procaine medicatio n Not [...] SNOMED-CT Code Diagnosis ICD10 Code Diagnosis Note [id number] Jessica Hadley MD Main - [facility] [address] [place] [phone] 03/23/2024 13:03:05 03/25/2024 16:45:46 Urinary symptoms [id number] R39.9 As noted, we were called to see this patient regarding concerns of urinary symptoms. Evaluation in the field was performed by my public safety telecommunicator colleague, as noted above, I provided real-time [...] changes to consciousn ess, chest pain, dypsnea. [id number] Alisia Aguirre MD [facility] - [address] [phone] 04/01/2024 18:50:28 04/01/2024 19:49:17 Low back pain [id number] M54.50 48 year old female with a [...] of the lower extremitie s. Prior to [facility]'s visit she took an excedrin which is helping bring the paind own. Exam notable for normal vital signs, neurologic exam is grossly normal. Presentati on consistent with acute on chronic lumbar radiculopa thy, no red flags noted. I have reviewed and agree with the assessment and plan as documented by the public safety telecommunicator. I provided real-time medical direction for this [...] Fernandez Member ID Guarantor Name 04/01/2024 1 [facility] - DOS ON OR AFTER 2022 - DUAL ELIGIBLE - GROUP HOME OPTIONS AND ONE CARE (MEDICARE REPLACEMENT/ADV ANTAGE - HMO) Atiya Dotson [id number] Atiya Dotson Notes Date Note Type Note [...] ...................... ...................... ...................... ...................... ...................... ...................... ......... Applications Sales Representative Note From Inna Galvan: Sent to a [...] ...................... ...................... ...................... ...................... ...................... ...................... ......... [facility] Consulted: Alisia Aguirre ...................... ...................... ...................... ...................... ...................... ...................... ......... Disposition: Fulfilled Alisia Aguirre MD [address] [facility],[address], [place], [address], [employer] 04/01/2024 19:22:50 OBGyn Episode No OBEpisode recorded.
--- OUTSIDE RECORDS SUMMARY | 2024-04-08 12:20 | XMS_ITS | Encounter Summary ---
Author Organization [employer] Address [address] [facility] 7t [place] [address] Care Team Providers Care Dba Manager Name Role Phone Maddie Kim MD Primary Care Provider [phone] Encounter Details Date Type Department Care Team ([facility] st Contact Info) Description 01/02/2024 Orders Only [facility] MEDICINE [address] [place], [place] [phone] Maddie Kim MD 230 [place], [place] [phone] Social History Tobacco Use Types Packs/Day Years [...] 9:00 AM EST Nutrition [facility] DIABETES/NUTRITION [address] [place] [address] [place] [address] documented as of this encounter Visit Diagnoses Not on filedocumented in this encounter Additional Health Concerns Assessment Noted Time PHQ-9 Depression Total Score: 3 06/15/19 24 11:48 AM EDT documented as of this encounter Care Teams Dba Manager Relationship Specialty Start Date End Date Maddie Kim MD [address] [place] [address] PCP - General Family Medicine 07/12/20 Willie Gage 01/17/22 documented as of this encounter
--- OUTSIDE RECORDS SUMMARY | 2024-04-08 12:20 | XMS_ITS | Encounter Summary ---
Author Organization [employer] Address [address] [facility] 7t [place] [address] Care Team Providers Care Actuarial Consultant Name Role Phone Maddie Kim MD Primary Care Provider [phone] Reason for Visit * Reason Comments Med Refill Encounter Details Date Type Department Care Team ([facility] st Contact Info) Description 04/12/2023 Refill [facility] [address] [place] [address] [phone] Isac Gonzalez MD [address] [place], [place] [phone] Chronic bilateral low back pain without sciatica [...] Info) Description 04/18/2024 9:00 AM EST Nutrition [facility] DIABETES/NUTRITION [address] [place] [address] [place] [address] documented as of this encounter Visit Diagnoses Diagnosis Chronic bilateral low back pain without sciatica documented in this encounter Additional Health Concerns Assessment Noted Time PHQ-9 Depression Total Score: 0 05/30/19 23 3:26 PM EDT documented as of this encounter Care Teams Actuarial Consultant Relationship Specialty Start Date End Date Maddie Kim MD [address] [place] [address] PCP - General Family Medicine 07/12/20 Willie Gage 01/17/22 documented as of this encounter
--- OUTSIDE RECORDS SUMMARY | 2024-04-08 12:20 | XMS_ITS | Encounter Summary ---
Author Organization [employer] Address [address] [facility] 7t [place] [address] Care Team Providers Care Other Spatial Scientist Name Role Phone Maddie Kim MD Primary Care Provider [phone] Reason for Visit * Reason Onset Date Comments Call Back Request 03/31/2024 Encounter Details Date Type Department Care Team ([facility] Contact Info) Description 03/31/[address] [facility] MEDICINE [address] [place], [place] [phone] Maddie Kim MD [address] [place], [place] [phone] Call Back Request Social History Tobacco Use [...] pt. Portal. * Telephone Encounter - Sheila Rene RN - 03/31/2024 1:23 PM EST TC placed to patient [phone] in regards to below message. RN did attempt calling patient today(see [place] encounter). Patient accepted HDF appointment for 04/02/24 at 11am for HDF. Patient to f/u PRN. * Telephone Encounter - Elier Mckinley - 03/31/2024 12:58 PM EST Tc from pt stating that a nurse Lesvia called her to transfer call to red team , telegraphic typewriter installer verify and there was no notes certification and selection specialist she states that was placed. Pt then tells telegraphic typewriter installer to tell nurse from red team to call her urgently. [phone] documented in this encounter Plan of Treatment Upcoming Encounters Date Type Department Care Team (Late st Contact Info) Description 04/18/2024 9:00 AM EST Nutrition [facility] DIABETES/NUTRITION [address] [place] [address] Rosie Vick, SHANICE [address] [place], [place] [phone] documented as of this encounter Visit Diagnoses Not on filedocumented in this encounter Additional Health Concerns Assessment Noted Time PHQ-9 Depression Total Score: 3 06/15/19 24 11:48 AM EDT documented as of this encounter Care Teams Other Spatial Scientist Relationship Specialty Start Date End Date Maddie Kim MD [address] [place] [address] PCP - General Family Medicine 07/12/20 Willie Gage 01/17/22 documented as of this encounter
--- OUTSIDE RECORDS SUMMARY | 2024-04-08 12:20 | XMS_ITS | Encounter Summary ---
Author Organization [employer] Address [address] [place] [address] 7[address] [place] [address] Care Team Providers Care Orthopedics Nurse Name Role Phone Maddie Kim MD Primary Care Provider [phone] Reason for Referral * Consultation (Routine) - Pending Review Specialty Diagnoses / Procedures Referred By Sindi mejia Referred To Contact Cardiology Diagnoses Tachycardia Maddie Kim MD [address] [place] [address] Phone: tel: fax: [facility] Referral ID Status Reason Start Date Expiration Date Visits Requested Visits Authorized [id number] Pending Review Specialty Services Required 04/07/2024 04/07/2025 1 1 Reason for Visit * Reason Comments Follow-up Encounter Details Date Type Department Care Team (Latest Contact Info) Description 04/02/2024 3:30 PM EST Office Visit [facility] MEDICINE [address] [place], [place] [phone] Maddie Kim MD [address] [place], [place] [phone] Schizoaffective disorder, bipolar type (CMS/HCC) (Primary Dx); Opioid abuse (CMS/HCC); Class 3 severe obesity with serious comorbidity and body mass index (BMI) of 40.0 to 44.9 in adult, unspecified obesity type (CMS/HCC); Dietary counseling; Exercise counseling; History of gastrectomy; Tachycardia Social History Tobacco Use Types Packs/Day Years [...] 3:33 PM EST documented in this encounter Progress Notes * Maddie Kim MD - 04/02/2024 3:30 PM EST Images from the original note were not included. SUBJECTIVE: Atiya Dotson is a 48 y.o. year old female who presents for hospital discharge followup. Was recently [place] [facility] [place] to replete sodium, with hyponatremia to 119 on hydrochlorothiazide and Invega, quetiapine. Acute Concerns: BP off hydrochlorothiazide is ok <140/90 regularly, though she just in the ER overnight for elevated BP and inappropriate tachycardia after emotional argument. Resolved with Ativan. Recheck BMP today shows ongoing hyponatremia of 132 Currently attending IOP from 9-1230 M-F at [facility], wants to go for few more weeks Needs a cardiology consult for Holter/tachycardia workup. Her TSH is normal today in clinic at 1.46, H/H slightly low at 10.7/31. MCV 75. Will restart iron supplementation Lab Results Since Your Last Visit as of 04/02/2024, sorted by update time Updated Procedure 04/02/24 183 Basic Metabolic Panel Collected: 04/02/241625 Final result Specimen: Blood, Venous Sodium 132 Low mmol/L Urea Nitrogen (BUN) 12 mg/dL Potassium 4.0 mmol/L Creatinine, Serum 0.74 mg/dL Chloride 102 mmol/L Estimated Glomerular Filt Rate >60 Carbon Dioxide 24 mmol/L Glucose 72 mg/dL Anion Gap 10 Low Calcium 8.9 mg/dL 04/02/24 183 TSH W/Reflex to FT4 Collected: 04/02/241625 Final result Specimen: Blood, Venous TSH reflex Free T4 1.46 uIU/mL 04/02/240 CBC auto differential Collected: 04/02/241625 Final result Specimen: Blood, Venous White Blood Count 14.5 High X10*3/uL Lymphocytes Percent Auto 3.9 Low % Red Blood Count 4.19 Low X10*6/uL Monocytes Percent Auto 6.7 % Hemoglobin 10.7 Low g/dl Eosinophils Percent Auto 0.2 % Hematocrit 31.5 Low % Basophils Percent Auto 0.1 % Mean Corpuscular Volume 75.2 Low fL NRBC Pct Auto 0.0 /100WBC Mean Corpuscular Hemoglobin 25.5 Low pg Neutrophils Absolute Auto 12.8 High x10*3/uL Mean Corpuscular HGB Conc 34.0 g/dl Imm Gran Abs Auto 0.07 High X10*3/uL Red Cell Distribution Width 13.9 % Lymphocytes Absolute Auto 0.6 Low X10*3/uL Platelet Count 242 X10*3/uL Monocytes Absolute Auto 1.0 X10*3/uL Mean Platelet Volume 10.3 fL Eosinophils Absolute Auto 0.0 X10*3/uL Neutrophils Percent Auto 88.6 High % Basophils Absolute Auto 0.0 X10*3/uL Imm Gran Pct Auto 0.5 High % Interim Updates: Pharmacy Consult Visit Type: F Pre-Visit Pharmacist: Shelbi Pereira PharmD Pharmacy Recommendations for provider: Continue to monitor for resolution of hyponatremia with discontinuation of hydrochlorothiazide, as sodium was still low on discharge (130 meq/l on 03/27/24) Please note patient is on the following medications that have been associated with hyponatremia: Invega, quetiapine If patients BP is above goal of <140/90 mmhg (Per JNC 8), following discontinuation of hydrochlorothiazide and additional BP control is needed can consider initiation of amlodipine 5 mg once daily Follow up on resolution of constipation and adherence to nicotine patches Background Pharmacist Shelbi Pereira PharmD was unable to contact patient to discuss upcoming hospital dischargevisit for hyponatremia : Future Appointments Date Time Provider Department Center 04/02/2024 11:00 AM Maddie Kim MD MEDICINE [facility] 04/18/2024 9:[address] DIAB NUTR [facility] Hospital Course and Medication Reconciliation [facility] (03/25/24-03/27/24) Patient presented for evaluation of hypernatremia at the advise of their mental health team. Sodiumfound to be low at 119 meq/l and potassium mildly elevated at 5.3 mmol/l. Patient also noted to be mildly hypotensive at 100/62 mmhg. Started on IVF and salt tablets on admission. Hydrochlorothiazidewas held and patient responded well with sodium improving to 130 meq/l. Nephrology recommended disco ntinuing hydrochlorothiazide and following up as outpatient. Discharged home with fiber for constipation. Medication changes that occurred during hospitalization include: Added Senna 8.6 mg - 2 tabs at bedtime Nicotine 21 mg/24 hr patch TD once daily Hydrocil instant pack - 1 pack once daily Changed: none Discontinued: hydrochlorothiazide Preferred Pharmacy: [facility] [address] [facility] [address] [facility] [phone] Pharmacist Notes Discrepancies: No recent fill found for: Vit B12 (last filled 09/02/23, 90 ds), Folic acid (lf 10/11/23), thiamine (lf 10/11/23), calcium carb (no fill found) Immunizations The GAIS database was reconciled and patient is indicated for the following immunizations: COVID-19, HepB , Influenza (annual), and Tetanus (q10 yrs) Patient Active Problem List Diagnosis Anemia Arthritis Arthropathy Atonic constipation Benign hypertension HBP (high blood pressure) Schizoaffective disorder, bipolar type (CMS/HCC) Gastric ulcer Gastroesophageal reflux disease without esophagitis Obesity Migraine Chronic midline low back pain without sciatica Alopecia Anxiety state Bimalleolar fracture of left ankle Bipolar disorder with severe sonya (CMS/HCC) Carpal tunnel syndrome Bilateral low back pain Hypothyroidism Iron deficiency anemia IUD contraception Knee pain, bilateral Herniated lumbar intervertebral disc Opioid abuse (CMS/HCC) Positive PPD Nicotine dependence Vitamin D deficiency Depression Diarrhea Family history of colonic polyps Hematochezia History of arthroplasty of right knee History of gastrectomy Ganglion cyst of dorsum of left wrist Daytime somnolence Retained orthopedic hardware Mild sleep apnea Rectal bleeding Sciatic pain, right No past surgical history on file. No family history on file. Social History Social History Narrative Lives in [place] Has daughter in the area who is helpful/involved in her life Review of Systems Constitutional: Negative. Respiratory: Negative. Cardiovascular: Negative. Musculoskeletal: Positive for arthralgias. Psychiatric/Behavioral: Positive for dysphoric mood. The patient is nervous/anxious. OBJECTIVE: Vitals: 04/02/24 1533 BP: 131/76 BP Location: Left arm Patient Position: Sitting BP Cuff Size: Adult Pulse: 98 Resp: 19 Temp: 97.6 ??F (36.4 ??C) TempSrc: Temporal SpO2: 100% Weight: 240 lb (109 kg) Height: 5' 2 (1.575 m) Physical Exam Vitals reviewed. Constitutional: Appearance: Normal appearance. HENT: Head: Normocephalic and atraumatic. Cardiovascular: Rate and Rhythm: Normal rate and regular rhythm. Pulses: Normal pulses. Heart sounds: Normal heart sounds. Pulmonary: Effort: Pulmonary effort is normal. Breath sounds: Normal breath sounds. Skin: General: Skin is warm and dry. Neurological: General: No focal deficit present. Mental Status: She is alert and oriented to person, place, and time. Psychiatric: Mood and Affect: Mood normal. Behavior: Behavior normal. ASSESSMENT/PLAN Problem List Items Addressed This Visit Schizoaffective disorder, bipolar type (CMS/HCC) - Primary Class 3 severe obesity with serious comorbidity and body mass index (BMI) of 40.0 to 44.9 in adult,unspecified obesity type (CMS/HCC) Current Assessment & Plan Will prescribe Mounjaro today based on comorbidities and difficult to control HTN, knee and ankle pain, and LAUREN. Relevant Orders TSH W/Reflex to FT4 (Completed) CBC auto differential (Completed) Opioid abuse (CMS/HCC) Overview In sustained remission History of gastrectomy Current Assessment & Plan 2009 gastric sleeve Other Visit Diagnoses Dietary counseling Exercise counseling Tachycardia Relevant Orders Referral to Cardiology Follow Up: 3 months or sooner prn Allergies Allergen Reactions Sulfamethoxazole Anaphylaxis Trimethoprim Anaphylaxis Hydromorphone Itching and Rash Other reaction(s): Itching Other reaction(s): Rash/Dermatitis Other reaction(s): Rash/Dermatitis Pt states her Face broke out . Pt states her Face broke out . Dilaudid Other reaction(s): red face, itchy over wholw body Penicillins Rash Other reaction(s): Hives Other reaction(s): Rash/Dermatitis Other reaction(s): Rash/Dermatitis Dilantin [Phenytoin] Penicillin G Other reaction(s): RASH Sulfamethoxazole-Trimethoprim Rash Got hives Got hives Got hives Other reaction(s): Throat swelling Current Outpatient Medications: albuterol 108 (90 Base) MCG/ACT inhaler, Inhale 2 puffs every 6 (six) hours if needed for wheezing., Disp: 18 g, Rfl: 11 Blood Pressure kit, 1 each 2 times daily., Disp: 1 kit, Rfl: 0 calcium carbonate (Os-Casey) 1250 (500 Ca) MG chewable tablet, Chew 1 tablet 2 times daily., Disp: , Rfl: celecoxib (CeleBREX) 200 MG capsule, Take 200 mg by mouth Once per day., Disp: , Rfl: cyanocobalamin (Vitamin B-12) 500 MCG tablet, Take 1 tablet by mouth Once per day., Disp: , Rfl: cyclobenzaprine (Flexeril) 10 MG tablet, TAKE 1 TABLET BY MOUTH THREE TIMES A DAY, Disp: 90 tablet,Rfl: 0 divalproex (Depakote) 500 MG EC tablet, Take 1,000 mg by mouth 2 times daily., Disp: , Rfl: docusate sodium (Colace) 100 MG capsule, TAKE 1 CAPSULE BY MOUTH TWICE A DAY, Disp: 180 capsule, Rfl: 1 Emollient (Minerin) lotion, APPLY TOPICALLY 2-3 TIMES A DAY NEEDED FOR DRY SKIN, Disp: 473 mL, Rfl: 4 EPINEPHrine (Epipen) 0.3 MG/0.3ML injection syringe, , Disp: , Rfl: folic acid (Folvite) 1 MG tablet, Take 1,000 mcg by mouth Once per day., Disp: , Rfl: gabapentin (Neurontin) 600 MG tablet, Take 1 tablet twice a day and 2 tabs at bedtime, Disp: , Rfl: lisinopril 40 MG tablet, Take 1 tablet (40 mg) by mouth Once per day., Disp: 90 tablet, Rfl: 3 metFORMIN XR (Glucophage-XR) 500 MG 24 hr tablet, TAKE 2 TABLETS (1,000 MG) BY MOUTH WITH EVENING MEAL. DO NOT CRUSH, CHEW, OR SPLIT., Disp: 180 tablet, Rfl: 1 minoxidil (Loniten) 2.5 MG tablet, Take 0.5 tablets by mouth Once per day., Disp: , Rfl: nicotine (Nicoderm, Step 1) 21 MG/24HR patch, Place 1 patch on the skin 1 (one) time each day at the same time., Disp: , Rfl: omeprazole (PriLOSEC) [address] capsule, TAKE 1 CAPSULE BY MOUTH BEFORE BREAKFAST, Disp: 90 capsule,Rfl: 3 ondansetron (Zofran) 4 MG tablet, TAKE 1 TABLET BY MOUTH EVERY 8 HOURS NEEDED FOR NAUSEA OR FOR VOMITING FOR UP TO 7 DAYS, Disp: 30 tablet, Rfl: 0 paliperidone palmitate ER (Invega Sustenna) 234 MG/1.5ML suspension prefilled syringe, Inject 1.5 mL into the muscle every 30 (thirty) days., Disp: , Rfl: prazosin (Minipress) 5 MG capsule, Take 1 capsule by mouth at bed time., Disp: , Rfl: psyllium (Hydrocil) 95 % packet, Take 1 packet by mouth Once per day. Mix and drink with at least 8ounces of water or juice., Disp: , Rfl: QUEtiapine (SEROquel) 50 MG tablet, Take 1 tablet by mouth at bedtime. And 1 tab once daily as needed, Disp: , Rfl: sennosides (Senokot) 8.6 MG tablet, Take 2 tablets by mouth Once per day., Disp: , Rfl: thiamine (Vitamin B-1) 50 MG tablet, Take 50 mg by mouth Once per day., Disp: , Rfl: topiramate 50 MG tablet, Take 1 tablet by mouth Once per day., Disp: , Rfl: Vivitrol injection, , Disp: , Rfl: Kazakh Translation: Patient is bilingual and declines translation services documented in this encounter Miscellaneous Notes * Assessment & Plan Note - Maddie Kim MD - 04/07/2024 10:29 AM EST Associated Problem(s): Class 3 severe obesity with serious comorbidity and body mass index (BMI) of40.0 to 44.9 in adult, unspecified obesity type (CMS/HCC) Will prescribe Mounjaro today based on comorbidities and difficult to control HTN, knee and ankle pain, and LAUREN. * Assessment & Plan Note - Maddie Kim MD - 04/02/2024 4:07 PM ESTAssociated Problem(s): 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 documented in this encounter Plan of Treatment Upcoming Encounters Date Type Department Care Team (Late st Contact Info) Description 04/18/2024 9:00 AM EST Nutrition [facility] DIABETES/NUTRITION [address] [place] [address] [place] [address] Scheduled Referrals Name Type Priority Associated Diagnoses Order Schedule Referral to Cardiology Outpatient Referral Routine Tachycardia Expected: 04/07/2024 (Approximate), Expires: 04/07/2025 documented as of this encounter Procedures Procedure [...] Blood Count 14.5(H) 4.8 - 10.8 X10*3/uL [facility] Red Blood Count 4.19(L) 4.20 - 5.50 X10*6/uL [facility] Hemoglobin 10.7(L) 12.0 - 16.0 g/dl [facility] Hematocrit 31.5(L) 37.0 - 47.0 % [facility] Mean Corpuscular Volume 75.2(L) 80.0 - 98.0 fL [facility] Mean Corpuscular Hemoglobin 25.5(L) 27.0 - 33.0 pg [facility] Mean Corpuscular HGB Conc 34.0 31.0 - 35.0 g/dl [facility] Red Cell Distribution Width 13.9 11.0 - 16.0 % [facility] Platelet Count 242 160 - 400 X10*3/uL [facility] Mean Platelet Volume 10.3 9.4 - 12.3 fL [facility] Neutrophils Percent Auto 88.6(H) 45 - 73 % [facility] Imm Gran Pct Auto 0.5(H) 0.0 - 0.4 % [facility] Lymphocytes Percent Auto 3.9(L) 20 - 40 % [facility] Monocytes Percent Auto 6.7 2 - 11 % [facility] Eosinophils Percent Auto 0.2 0 - 4 % [facility] Basophils Percent Auto 0.1 0 - 2 % [facility] NRBC Pct Auto 0.0 0.0 - 0.2 /100WBC [facility] Neutrophils Absolute Auto 12.8(H) 2.0 - 8.3 x10*3/uL [facility] Imm Gran Abs Auto 0.07(H) 0.00 - 0.03 X10*3/uL [facility] Lymphocytes Absolute Auto 0.6(L) 1.2 - 4.9 X10*3/uL [facility] Monocytes Absolute Auto 1.0 0.1 - 1.2 X10*3/uL [facility] Eosinophils Absolute Auto 0.0 0.0 - 0.4 X10*3/uL [facility] Basophils Absolute Auto 0.0 0.0 - 0.2 X10*3/uL [facility] NRBC Abs Auto 0.000 0.0 - 0.012 X10*3/uL [facility] Blood Venous blood specimen / Unknown 04/02/2024 4:26 PM EST 04/02/2024 5:31 PM EST Maddie Kim MD LAB BLOOD ORDERABLES Final Res ult Performing Organization Address [facility] Co de Phone Number [facility] [address] [place] [address] [phone] * TSH W/Reflex to FT4 (04/02/2024 4:26 PM EST) TSH reflex Free T4 1.46 0.32 - 4.0 uIU/mL [facility] Blood Venous blood specimen / Unknown 04/02/2024 4:26 PM EST 04/02/2024 5:31 PM EST Maddie Kim MD LAB BLOOD ORDERABLES Final Res ult Performing Organization Address [facility] de Phone Number [facility] [address] [place] [phone] documented in this encounter Visit Diagnoses Diagnosis Schizoaffective disorder, bipolar type (CMS/HCC)- Primary Schizoaffective disorder, unspecified condition Opioid abuse (CMS/HCC) Nondependent opioid abuse, unspecified Class 3 severe obesity with serious comorbidity and body mass index (BMI) of 40.0 to 44.9 in adult, unspecified obesity type (CMS/HCC) Dietary counseling Dietary surveillance and counseling Exercise counseling History of gastrectomy Acquired absence of organ, stomach Tachycardia Unspecified tachycardia documented in this encounter Additional Health Concerns Assessment Noted Time PHQ-9 Depression Total Score: 3 06/15/19 24 11:48 AM EDT documented as of this encounter Care Teams Orthopedics Nurse Relationship Specialty Start Date End Date Maddie Kim MD [address] [place] [address] PCP - General Family Medicine 07/12/20 Willie Gage 01/17/22 documented as of this encounter
--- OUTSIDE RECORDS SUMMARY | 2024-04-08 12:20 | XMS_ITS | Encounter Summary ---
Author Organization [employer] Address [address] [facility] [address] [place] [address] Care Team Providers Care Phone Representative Name Role Phone Maddie Kim MD Primary Care Provider [phone] Reason for Visit * Reason Comments Med Refill Encounter Details Date Type Department Care Team ([facility] st Contact Info) Description 04/12/2023 Refill [facility] [address] [place] [address] [phone] Isac Gonzalez MD [address] [place], [place] [phone] Chronic bilateral low back pain without sciatica [...] Info) Description 04/18/2024 9:00 AM EST Nutrition [facility] DIABETES/NUTRITION [address] [place] [address] [place] [address] documented as of this encounter Visit Diagnoses Diagnosis Chronic bilateral low back pain without sciatica documented in this encounter Additional Health Concerns Assessment Noted Time PHQ-9 Depression Total Score: 0 05/30/19 23 3:26 PM EDT documented as of this encounter Care Teams Phone Representative Relationship Specialty Start Date End Date Maddie Kim MD [address] [place] [address] PCP - General Family Medicine 07/12/20 Willie Gage 01/17/22 documented as of this encounter
--- OUTSIDE RECORDS SUMMARY | 2024-04-08 12:20 | XMS_ITS | Encounter Summary ---
Author Organization [employer] Address [address] [place] [address] [address] [place] [address] Care Team Providers Care General Matcher Name Role Phone Maddie Kim MD Primary Care Provider [phone] Reason for Visit * Reason Onset Date Comments c/b request 11/10/2022 Encounter Details Date Type Department Care Team ([facility] st Contact Info) Description 11/10/2022 Telephone [facility] MEDICINE [address] [place] [address] [phone] Maddie Kim MD [address] [place], [place] [phone] c/b request Social History Tobacco Use Types [...] to medication reconciliation. Please contact [employer] at [phone] documented in this encounter Plan of Treatment Upcoming Encounters Date Type Department Care Team (Late st Contact Info) Description 04/18/2024 9:00 AM EST Nutrition [facility] DIABETES/NUTRITION [address] [place], [place] [phone] Rosie Vick [address] [place] [address] documented as of this encounter Visit Diagnoses Diagnosis Gastroesophageal reflux disease without esophagitis Esophageal reflux documented in this encounter Additional Health Concerns Assessment Noted Time PHQ-9 Depression Total Score: 0 05/30/19 23 3:26 PM EDT documented as of this encounter Care Teams General Matcher Relationship Specialty Start Date End Date Maddie Kim MD [address] [place] [address] PCP - General Family Medicine 07/12/20 Willie Gage 01/17/22 documented as of this encounter
--- OUTSIDE RECORDS SUMMARY | 2024-04-08 12:20 | XMS_ITS | Encounter Summary ---
Author Organization [employer] Address [address] [place] [address] [address]t [place] [address] Care Team Providers Care Electrical Engineering Designer Name Role Phone Maddie Kim MD Primary Care Provider [phone] Encounter Details Date Type Department Care Team (Late Contact Info) Description 04/11/2022 Abstract [facility] MEDICINE [address] [place], [place] [phone] Maddie Kim MD [address] [place], [place] [phone] Social History Tobacco Use Types Packs/Day Years [...] 04/18/2024 9:00 AM EST Nutrition [facility] DIABETES/NUTRITION [address] [place] [address] [place] [address] documented as of this encounter Visit Diagnoses Not on filedocumented in this encounter Care Teams Electrical Engineering Designer Relationship Specialty Start Date End Date Maddie Kim MD [address] [place] [phone] PCP - General Family Medicine 07/12/20 Willie Gage 01/17/22 documented as of this encounter
--- OUTSIDE RECORDS SUMMARY | 2024-04-08 12:20 | XMS_ITS | Encounter Summary ---
Author Organization [employer] Address [address] [place] [address] [address]t [place] [address] Care Team Providers Care Realtime Reporter Name Role Phone Maddie Kim MD Primary Care Provider [phone] Encounter Details Date Type Department Care Team ([facility] Contact Info) Description 03/30/2022 Abstract [facility] MEDICINE [address] [place], [place] [phone] Maddie Kim MD [address] [place], [place] [phone] Social History Tobacco Use Types Packs/Day Years [...] Info) Description 04/18/2024 9:00 AM EST Nutrition [facility] DIABETES/NUTRITION [address] [place] [address] [place] [address] documented as of this encounter Visit Diagnoses Not on filedocumented in this encounter Care Teams Realtime Reporter Relationship Specialty Start Date End Date Maddie Kim MD [address] [place] [phone] PCP - General Family Medicine 07/12/20 Willie Gage 01/17/22 documented as of this encounter
--- OUTSIDE RECORDS SUMMARY | 2024-04-08 12:20 | XMS_ITS | Encounter Summary ---
Author Organization [employer] Address [address] [place] [address] [address] [place] [address] Care Team Providers Care Rubbish Collection Supervisor Name Role Phone Maddie Kim MD Primary Care Provider [phone] Reason for Visit * Reason Onset Date Comments Hospital Follow-up 03/28/2024 Encounter Details Date Type Department Care Team ([facility] Contact Info) Description 03/28/2024 Telephone [facility] MEDICINE [address] [place], [place] [phone] Maddie Kim MD [address] [place], [place] [phone] Hospital Follow-up Social History Tobacco Use Types [...] from pt requesting a HDF appt. Hospital: [facility] Date of admission: 03/24/24 Discharge date: 03/27/24 Diagnosed: Hyponatremia *Send message to [place] Clinical Care Coordinators documented in this encounter Plan of Treatment Upcoming Encounters Date Type Department Care Team (Late st Contact Info) Description 04/18/2024 9:00 AM EST Nutrition [facility] DIABETES/NUTRITION [address] [place] [address] [place] [address] documented as of this encounter Visit Diagnoses Not on filedocumented in this encounter Additional Health Concerns Assessment Noted Time PHQ-9 Depression Total Score: 3 06/15/19 24 11:48 AM EDT documented as of this encounter Care Teams Rubbish Collection Supervisor Relationship Specialty Start Date End Date Maddie Kim MD [address] [place] [address] PCP - General Family Medicine 07/12/20 Willie Gage 01/17/22 documented as of this encounter
--- OUTSIDE RECORDS SUMMARY | 2024-04-08 12:20 | XMS_ITS | Clinical Summary ---
Author Organization [employer] Address [address] [place] [address] 7t [place] [address] Care Team Providers Care Senior Sales Manager Name Role Phone Maddie Kim MD Primary Care Provider [phone] Allergies Active Allergy Reactions Criticality Noted Date [...] week. 2 mL 3 04/02/19 25 Active ferrous gluconate (Fergon) 324 (38 Fe) MG tablet Take 1 pill every Sunday, Sunday, and Sunday. 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 Assessment & Plan (05/31/2022 10:05 AM EDT): Referral to nutrition She is s/p gastric sleeve? I think discuss portion sizes with ice crusher Assessment & Plan (01/29/2022 10:40 AM EST): [...] re-iterated that she can reach us through [facility] if she needs anything Assessment & Plan [...] Description 04/02/2024 3:30 PM EST [facility] [place] [address] Maddie Kim MD Schizoaffective disorder, bipolar type (CMS/HCC) (Primary Dx); Opioid abuse (CMS/HCC); Class 3 severe obesity with serious comorbidity and body mass index (BMI) of 40.0 to 44.9 in adult, unspecified obesity type (CMS/HCC); Dietary counseling; Exercise counseling; History of gastrectomy; Tachycardia 04/02/2024 Travel 04/02/20[address] [place] [address] Maddie Kim MD No Show 03/31/[address] [address] Maddie Kim MD Call Back Request 03/28/2024 [address]phone [address] [place] [address] Maddie Kim MD FYI 03/28/2024 Patient Outreach [address] [address] Maddie Kim MD Transition Of Care (Tcm) (HDF- Unscheduled- PATIENT REQ. A HDF WITHIN 7 DAYS AND ONLY WITH HER PCP) 03/28/[address] [address] Maddie Kim MD Hospital Follow-up 03/24/[address] [address] Maddie Kim MD 03/24/[address] [address] Sheila Rene, RN NTTS 03/20/[address] NUTRITION APPT REQUEST 03/04/[address] [place] [address] Maddie Kim MD verbal order 03/04/2024 Refill [facility] MEDICINE [address] [place] [address] Maddie Kim MD 02/22/2024 Telephone [facility] MEDICINE [address] [place] [address] Maddie Kim MD 02/22/2024 Orders Only [facility] MEDICINE [address] [place] [address] Maddie Kim MD 02/21/2024 Telephone [facility] MEDICINE [address] [place] [address] Maddie Kim MD FYI 02/21/2024 Refill [facility] MEDICINE [address] [place] [address] Maddie Kim MD 02/15/2024 Telephone [facility] MEDICINE [address] [place] [address] Maddie Kim MD FYI 02/15/2024 Refill [facility] MEDICINE [address] [place] [address] Maddie Kim MD 01/22/2024 Orders Only GENERIC EXTERNAL DATA DEPARTMENT Provider, Generic External Data from Last 3 Months Immunizations Name Administration [...] 04/18/2024 9:00 AM EST Nutrition [facility] DIABETES/NUTRITION [address] [place] [address] Rosie Vick, RD [address] [place] [address] Health Maintenance Due Date Last Done Comments [...] W/Reflex to FT4 (04/02/2024 4:26 PM EST) Pathologist [facility] TSH reflex Free T4 1.46 0.32 - 4.0 uIU/mL [facility] Blood Venous blood specimen / Unknown 04/02/2024 4:26 PM EST 04/02/2024 5:31 PM EST us Maddie Kim MD LAB BLOOD ORDERABLES Final Res ult [facility] [address] [place] [phone] * (ABNORMAL) CBC auto differential (04/02/2024 4:26 PM EST) Pathologist [facility] White Blood Count 14.5(H) 4.8 - 10.8 X10*3/uL [facility] Red Blood Count 4.19(L) 4.20 - 5.50 X10*6/uL [facility] Hemoglobin 10.7(L) 12.0 - 16.0 g/dl [facility] Hematocrit 31.5(L) 37.0 - 47.0 % [facility] Mean Corpuscular Volume 75.2(L) 80.0 - 98.0 fL [facility] Mean Corpuscular Hemoglobin 25.5(L) 27.0 - 33.0 pg [facility] Mean Corpuscular HGB Conc 34.0 31.0 - 35.0 g/dl [facility] Red Cell Distribution Width 13.9 11.0 - 16.0 % [facility] Platelet Count 242 160 - 400 X10*3/uL [facility] Mean Platelet Volume 10.3 9.4 - 12.3 fL [facility] Neutrophils Percent Auto 88.6(H) 45 - 73 % [facility] Imm Gran Pct Auto 0.5(H) 0.0 - 0.4 % [facility] Lymphocytes Percent Auto 3.9(L) 20 - 40 % [facility] Monocytes Percent Auto 6.7 2 - 11 % [facility] Eosinophils Percent Auto 0.2 0 - 4 % [facility] Basophils Percent Auto 0.1 0 - 2 % [facility] NRBC Pct Auto 0.0 0.0 - 0.2 /100WBC [facility] Neutrophils Absolute Auto 12.8(H) 2.0 - 8.3 x10*3/uL [facility] Imm Gran Abs Auto 0.07(H) 0.00 - 0.03 X10*3/uL [facility] Lymphocytes Absolute Auto 0.6(L) 1.2 - 4.9 X10*3/uL [facility] Monocytes Absolute Auto 1.0 0.1 - 1.2 X10*3/uL [facility] Eosinophils Absolute Auto 0.0 0.0 - 0.4 X10*3/uL [facility] Basophils Absolute Auto 0.0 0.0 - 0.2 X10*3/uL [facility] NRBC Abs Auto 0.000 0.0 - 0.012 X10*3/uL [facility] Blood Venous blood specimen / Unknown 04/02/2024 4:26 PM EST 04/02/2024 5:31 PM EST us Maddie Kim MD LAB BLOOD ORDERABLES Final Res ult [facility] [address] [place] [address] [phone] * (ABNORMAL) Basic Metabolic Panel (04/02/2024 4:26 PM EST) Sodium 132(L) 135 - 145 mmol/L [facility] Potassium 4.0 3.3 - 5.1 mmol/L [facility] Chloride 102 96 - 108 mmol/L [facility] Carbon Dioxide 24 22 - 29 mmol/L [facility] Anion Gap 10(L) 12 - 20 [facility] Urea Nitrogen (BUN) 12 9 - 16 mg/dL [facility] Creatinine, Serum 0.74 0.5 - 1.4 mg/dL [facility] Estimated Glomerular Filt Rate >60 [facility] Comment:Chronic Kidney Disea se: Estimated GFR < 60 mL/min/1.82h5Bjedah Kidney Disease: Estimated GFR < 15 mL/min/1.73m2 Glucose 72 60 - 115 mg/dL [facility] Calcium 8.9 8.4 - 10.2 mg/dL [facility] Blood Venous blood specimen / Unknown 04/02/2024 4:26 PM EST 04/02/2024 5:31 PM EST us Maddie Kim MD LAB BLOOD ORDERABLES Final Res ult [facility] [address] [place] [phone] * Pap Smear (01/22/2024 8:03 AM EST) 01/22/2024 8:03 AM EST 01/23/2024 11:00 AM EST Narrative [facility] - 01/25/2024 12:58 PM EST ----- ------- Name: Atiya Esparza ?Age/Sex: 48/F ? : 1975 Unit#: [id number] ?? Attend Dr: John Schmidt MD ?Re/03/24 ?Status: DEP REF ? Location: HO.LNP ?Disch: ? ----- ------- SPEC : [id number] ?RECD: 01/23/24 ? STATUS: ??SOUT ? REQ NUM: [id number] ? MAMADOU: 01/22/24 ? SUBM DR: John [...] Copies To: ?? Maddie Kim ?? [address] [facility] ?? [place] [address] ?? [phone] ?? John Schmidt MD ?? [facility] ?? [address] [facility] [address] ?? [place] ?? [phone] ----- ------- Signed (signature on file) YASSINE Garcia (ASCP) 01/25/24 1258 ? ----- ------- ? END OF REPORT ? us Generic External Data Provider LAB CYTOLOGY HARJEET AVALOS Final Result [facility] [address] [facility] [place] [address] [phone] * Lipid Panel, Standard (09/08/2023 8:43 AM EDT) Triglycerides 57 <150 mg/dL [facility] Comment:Desirable Triglyceri de: less than 150 mg/dLBorderline High Triglyceride 150-199 mg/dLHigh Triglyceride: 200-499 mg/dLVery High Triglyceride: greater than or equal to 5OO mg/dL Cholesterol 158 <200 mg/dL [facility] Comment:Desirable Cholestero l: less than 200 mg/dLBorderline High Cholesterol: 200-239 mg/dLHigh Cholesterol: greater than 239 mg/dL LDL Cholesterol Calculated 87 <100 mg/dL [facility] Comment:Desirable LDL: less than 100 mg/dLNear Optimal/Above Optimal LDL: 110- 129 mg/dLBorderline High LDL: 130-159 mg/dLHigh LDL: 160-189 mg/dLVery High LDL: greater than or equal to 190 mg/dL HDL Cholesterol 60 >40 mg/dL [facility] Comment:Desirable HDL: great er than 40 mg/dL Note: This HDL assay may give artificially low results in patients with liver disease. Blood Venous blood specimen / Unknown 09/08/2023 8:43 AM EDT 09/08/2023 11:09 AM EDT us Maddie Kim MD LAB BLOOD ORDERABLES Final Res ult [facility] [address] [place] [phone] * BI Mammogram Screening Tomosynthesis Bilateral (05/04/2023 4:02 PM EDT) Anatomical Region Laterality Modality Breast Bilateral Mammography 05/04/2023 4:02 PM EDT Narrative 05/26/2023 3:06 PM EDT ? [facility] [place] ? [address] ?[place] [address] ? Mammography Report ? Signed ? Patient: Isaias,Atiya ?MR#: [id number] ? : 1975 ?Acct:[id number] ? Age/Sex: 47 / F ?ADM Date: 03/15/24 ? Loc: HO.MAMMO ? Attending Dr: Maddie Kim MD ? Ordering Physician: Maddie Kim ?Results: 1Negative ? Date of Service: 05/04/23 ?Follow Up: 1 Year From Orig ?? inal Mammogram ? Procedure(s): MM tomosynthesis screening BI ?? Accession Number(s): [id number] ? cc: Maddie Kim ? EXAMINATION: ?? [...] 1503 ? DD/ 1602 ? TD/TT: ? System Safety Engineer: ? Procedure Note Donrutter, Image - 05/26/2023 [facility] [address] [place] [address] Mammography Report Signed Patient: Zain Esparza#: [id number] : 1975Acct:[id number] Age/Sex: 47 / FADM Date: 05/04/23 Loc: .MAMMO Attending Dr: Maddie Kim MD Ordering Physician: Jaja Kimults: 1Negative Date of Service: 05/04/23Follow Up: 1 Year From Orig inal Mammogram Procedure(s): MM tomosynthesis screening BI Accession Number(s): [id number] cc: Maddie Kim EXAMINATION: MM SCREENING DIGITAL [...] in OV> 05/26/23 1503 DD/ 1602 TD/TT: System Safety Engineer: Maddie Kim MD IMG BI PROCEDURES Final Result * HPV GENOTYPES 16,18/45 (12/20/2020 12:00 AM EDT) HPV 16 RNA NOT DETECTED NOT DETECTED [facility] HPV 18/45 RNA NOT DETECTED NOT DETECTED [facility] Comment: Methodology: Copy And Print Associate Mediated Amplification The analytical performance characteristics of this assay have been determined by [employer]. The modifications have not been cleared or approved by the FDA. This assay has been validated pursuant to the CLIA regulations and is used for clinical purposes. 12/20/2020 Maddie Kim MD LAB BLOOD ORDERABLES Final Res ult [facility] [address] from Last 3 Months or Most Recently Relevant to Health Maintenance [place] [address] [address] - [employer] Care Teams Senior Sales Manager Relationship Specialty Start Date End Date Maddie Kim MD [address] [place] [phone] PCP - General Family Medicine 07/12/20 Willie Gage 01/17/22
--- OUTSIDE RECORDS SUMMARY | 2024-04-08 12:20 | XMS_ITS | Encounter Summary ---
Author Organization [employer] Address [address] [place] [address] 7t [place] [address] Care Team Providers Care Strategic Planning Analyst Name Role Phone Maddie Kim MD Primary Care Provider [phone] Reason for Visit * Reason Onset Date Comments FYI 03/28/2024 Encounter Details Date Type Department Care Team ([facility] Contact Info) Description 03/28/2024 Telephone [facility] MEDICINE [address] [place], [place] [phone] Maddie Kim MD [address] [place], [place] [phone] Social History Tobacco Use Types Packs/Day Years [...] Gage stating that Pt was seen at [facility] and she also said that they took pt off Med hydroCHLOROthiazide (HYDRODiuril) 25 MG tablet If any questions contact Lauren at [phone] documented in this encounter Plan of Treatment Upcoming Encounters Date Type Department Care Team (Late st Contact Info) Description 04/18/2024 9:00 AM EST Nutrition [facility] DIABETES/NUTRITION [address] [place] [address] [place] [address] documented as of this encounter Visit Diagnoses Not on filedocumented in this encounter Additional Health Concerns Assessment Noted Time PHQ-9 Depression Total Score: 3 06/15/19 24 11:48 AM EDT documented as of this encounter Care Teams Strategic Planning Analyst Relationship Specialty Start Date End Date Maddie Kim MD [address] [place] [address] PCP - General Family Medicine 07/12/20 Willie Gage 01/17/22 documented as of this encounter
--- OUTSIDE RECORDS SUMMARY | 2024-04-08 12:20 | XMS_ITS | Encounter Summary ---
Author Organization [employer] Address [address] [place] [address] 7t [place] [address] Care Team Providers Care Line Service Technician Name Role Phone Maddie Kim MD Primary Care Provider [phone] Reason for Referral * Consultation (Routine) - Closed Specialty Diagnoses / Procedures Referred By Sindi mejia Referred To Contact Nutrition Diagnoses Class 2 severe obesity with serious comorbidity and body mass index (BMI) of 39.0 to 39.9 in adult, unspecified obesity type (CMS/HCC) Maddie Kim MD [address] [place] [address] Phone: tel: fax: Referral ID Status Reason Start Date Expiration Date V isits Requested Visits Authorized [id number] Closed Consult and Treat 04/06/2023 04/05/2024 1 1 Encounter Details Date Type Department Care Team (Late st Contact Info) Description 04/06/2023 Orders Only [facility] MEDICINE [address] [place] [phone] Maddie Kim MD [address] [place] [address] Class 2 severe obesity with serious comorbidity [...] 04/18/2024 9:00 AM EST Nutrition [facility] DIABETES/NUTRITION [address] [place] [address] [place] [address] Scheduled Referrals Name Type Priority Associated Diagnoses [...] EDT Narrative 05/26/2023 3:06 PM EDT ? [facility] ? [address] ?[place] [address] ? Mammography Report ? Signed ? Patient: Isaias,Atiya ?MR#: [id number] ? : 1975 ?Acct:[id number] ? Age/Sex: 47 / F ?ADM Date: 05/04/23 ? Loc: HO.MAMMO ? Attending Dr: Maddie Kim MD ? Ordering Physician: Maddie Kim ?Results: 1Negative ? Date of Service: 05/04/23 ?Follow Up: 1 Year From Orig ?? inal Mammogram ? Procedure(s): MM tomosynthesis screening BI ?? Accession Number(s): [id number] ? cc: Maddie Kim ? EXAMINATION: ?? [...] 1503 ? DD/ 1602 ? TD/TT: ? Crm Marketing Specialist: ? Procedure Note Donrutter, Image - 05/26/2023 [facility] [address] [place] [address] Mammography Report Signed Patient: Zain Esparza#: [id number] : 1975Acct:[id number] Age/Sex: 47 / FADM Date: 05/04/23 Loc: MICHAEL Attending Dr: Maddie Kim MD Ordering Physician: Jaja Kimults: 1Negative Date of Service: 05/04/23Follow Up: 1 Year From Orig inal Mammogram Procedure(s): MM tomosynthesis screening BI Accession Number(s): [id number] cc: Maddie Kim EXAMINATION: MM SCREENING DIGITAL [...] in OV> 05/26/23 1503 DD/ 1602 TD/TT: Crm Marketing Specialist: Maddie Kim MD IMG BI PROCEDURES Final [...] documented as of this encounter Care Teams Line Service Technician Relationship Specialty Start Date End Date Maddie Kim MD [address] [place] [address] PCP - General Family Medicine 07/12/20 Willie Gage 01/17/22 documented as of this encounter
--- OUTSIDE RECORDS SUMMARY | 2024-04-08 12:20 | XMS_ITS | Encounter Summary ---
Author Organization [employer] Address [address] [facility] 7t [place] [address] Care Team Providers Care Phone Operator Name Role Phone Maddie Kim MD Primary Care Provider [phone] Encounter Details Date Type Department Care Team ([facility] st Contact Info) Description 06/13/2023 Orders Only [facility] MEDICINE [address] [place], [place] [phone] Maddie Kim MD [address] [place], [place] [phone] Social History Tobacco Use Types Packs/Day Years [...] [facility]TRITION [address] [place] [address] [place] [address] documented as of this encounter Visit Diagnoses Not on filedocumented in this encounter Additional Health Concerns Assessment Noted Time PHQ-9 Depression Total Score: 0 05/30/19 23 3:26 PM EDT documented as of this encounter Care Teams Phone Operator Relationship Specialty Start Date End Date aMddie Kim MD [address] [place] [address] PCP - General Family Medicine 07/12/20 Willie Gage 01/17/22 documented as of this encounter
--- OUTSIDE RECORDS SUMMARY | 2024-04-08 12:20 | XMS_ITS | Encounter Summary ---
Author Organization [employer] Address [address] [facility] 7t [place] [address] Care Team Providers Care Asphalt Distributor Operator Name Role Phone Maddie Kim MD Primary Care Provider [phone] Reason for Visit * Reason Onset Date Comments Med Refill 02/14/2023 Encounter Details Date Type Department Care Team ([facility] Contact Info) Description 02/14/2023 Refill [facility] [address] [place] [phone] Maddie Kim MD 230 [place], [place] [phone] Social History Tobacco Use Types Packs/Day Years [...] 04/18/2024 9:00 AM EST Nutrition [facility] DIABETES/NUTRITION [address] [place] [address] [place] [address] documented as of this encounter Visit Diagnoses Not on filedocumented in this encounter Additional Health Concerns Assessment Noted Time PHQ-9 Depression Total Score: 0 05/30/19 23 3:26 PM EDT documented as of this encounter Care Teams Asphalt Distributor Operator Relationship Specialty Start Date End Date Maddie Kim MD [address] [place] [address] PCP - General Family Medicine 07/12/20 Willie Gage 01/17/22 documented as of this encounter
--- OUTSIDE RECORDS SUMMARY | 2024-04-08 12:21 | XMS_ITS | Encounter Summary ---
Author Organization [employer] Address [address] [facility] 7t [place] [address] Care Team Providers Care Wax Cutter Name Role Phone Maddie Kim MD Primary Care Provider Reason for Visit * Reason Onset Date Comments Med Refill 03/19/2023 Encounter Details Date Type Department Care Team ([facility] Contact Info) Description 03/19/2023 Telephone [facility] MEDICINE [address] [place] [address] Maddie Kim MD [address] [place], [place] [phone] Med Refill Social History Tobacco Use Types [...] Pt agrees. MD Maddie Saravia RN; [facility] Team Nurses Caller: Unspecified (2 weeks ago) I wrote her a work excuse extending her time for remote work until 04/05/23 * Telephone Encounter - Maddie Crawford RN - 04/02/2023 3:02 PM EST Images from the original note were not included. Triage call regarding Pt portal message below. Pt continues to have symptoms of Covid. Pt was seen in [facility] 03/29/[address] Gonzalez and dx [...] [facility] 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-19 by Doctor (or FOOD SUPERVISOR/PA) and Mild Symptoms * General Care Advice for COVID-19 Symptoms * Humidifier * Coughing Spells * Pain and Fever Medicines * Mild Stomach and Intestinal Symptoms During COVID-19 Illness [facility] Clinial Support (supporting Lorrie Alaniz [...] [facility] DIABETES/NUTRITION [address] [place] [address] Rosie Vick, SHANICE [address] [place] [address] documented as of this encounter Visit Diagnoses Not on filedocumented in this encounter Additional Health Concerns Assessment Noted Time PHQ-9 Depression Total Score: 0 05/30/19 23 3:26 PM EDT documented as of this encounter Care Teams Wax Cutter Relationship Specialty Start Date End Date Maddie Kim MD [address] [place] [address] PCP - General Family Medicine 07/12/20 Willie Gage 01/17/22 documented as of this encounter
--- OUTSIDE RECORDS SUMMARY | 2024-04-08 12:21 | XMS_ITS | Encounter Summary ---
Author Organization [employer] Address [address] [facility] 7t [place] [address] Care Team Providers Care Mma Fighter Name Role Phone Maddie Kim MD Primary Care Provider [phone] Reason for Visit * Reason Onset Date Comments Med Refill 04/04/2023 Encounter Details Date Type Department Care Team ([facility] st Contact Info) Description 04/04/2023 Refill [facility] [address] [place] [phone] Isac Gonzalez MD [address] [place], [place] [phone] Chronic bilateral low back pain without sciatica [...] Nutrition [facility] DIABETES/NUTRITION [address] [place] [address] [place] [address] documented as of this encounter Visit Diagnoses Diagnosis Chronic bilateral low back pain without sciatica documented in this encounter Additional Health Concerns Assessment Noted Time PHQ-9 Depression Total Score: 0 05/30/19 23 3:26 PM EDT documented as of this encounter Care Teams Mma Fighter Relationship Specialty Start Date End Date Maddie Kim MD [address] [place] [address] PCP - General Family Medicine 07/12/20 Willie Gage 01/17/22 documented as of this encounter
--- OUTSIDE RECORDS SUMMARY | 2024-04-08 12:21 | XMS_ITS | Encounter Summary ---
Author Organization [employer] Address [address] [facility] 7t [place] [address] Care Team Providers Care Chemical Manager Name Role Phone Maddie Kim MD Primary Care Provider [phone] Reason for Visit * Reason Onset Date Comments Nurse Triage 05/14/2023 Encounter Details Date Type Department Care Team ([facility] st Contact Info) Description 05/14/2023 Telephone [facility] MEDICINE [address] [place], [place] [phone] Maddie Kim MD [address] [place], [place] [phone] Nurse Triage Social History Tobacco Use Types [...] accepted this outcome Any questions to Destiny [phone] documented in this encounter Plan of Treatment Upcoming Encounters Date Type Department Care Team (Late st Contact Info) Description 04/18/2024 9:00 AM EST Nutrition [facility] DIABETES/NUTRITION 230 [place] [address] Rosie Vick, RD 230 [place] [address] documented as of this encounter Visit Diagnoses Not on filedocumented in this encounter Additional Health Concerns Assessment Noted Time PHQ-9 Depression Total Score: 0 05/30/19 23 3:26 PM EDT documented as of this encounter Care Teams Chemical Manager Relationship Specialty Start Date End Date Maddie Kim MD 230 [place] [address] PCP - General Family Medicine 07/12/20 Willie Gage 01/17/22 documented as of this encounter
--- OUTSIDE RECORDS SUMMARY | 2024-04-08 12:21 | XMS_ITS | Encounter Summary ---
Author Organization [employer] Address [address] [facility] [address] [place] [address] Care Team Providers Care Choirmaster Name Role Phone Maddie Kim MD Primary Care Provider [phone] Reason for Visit * Reason Comments Med Refill Encounter Details Date Type Department Care Team ([facility] st Contact Info) Description 03/18/2023 Refill [facility] [address] [place] [address] [phone] Maddie Kim MD [address] [place] [address] [phone] Social History Tobacco Use Types Packs/Day Years [...] Info) Description 04/18/2024 9:00 AM EST Nutrition [facility] [address] [place] [address] Rosie Vick, SHANICE [address] [place] [address] documented as of this encounter Visit Diagnoses Not on filedocumented in this encounter Additional Health Concerns Assessment Noted Time PHQ-9 Depression Total Score: 0 05/30/19 23 3:26 PM EDT documented as of this encounter Care Teams Choirmaster Relationship Specialty Start Date End Date Maddie Kim MD [address] [place] [address] PCP - General Family Medicine 07/12/20 Willie Gage 01/17/22 documented as of this encounter
--- OUTSIDE RECORDS SUMMARY | 2024-04-08 12:21 | XMS_ITS | Clinical Summary ---
Author Organization Unknown Care Team Providers Care Senior Sharepoint Developer Name Role Phone MARLON AHUMADA, JEAN-PIERRE Unavailable Unavailable ENRIQUE WEINSTEINW, WINNIE Unavailable Unavailable KATINA RN, ANASTACIA Unavailable Unavailable SMILEY RN, JENNI Unavailable Unavailable JAVIER RN, GABBY Unavailable Unavaila ble Payers Payer Name Policy Type Policy Number Effective Date Expira tion Date [facility] [id number] [place] [id number] MEDICARE - [facility] - [place] [id number] Problems Condition Name Condition Details Condition Category [...] 2020-02 00:00: 00 03-07 00:00 :00 No [id number] 10 mg 3 TIMES DAILY 10 mg 3 TIMES DAILY (route: oral) Med Classific ation: Locomotor System buprenorphi ne 4 mg-naloxone 1 mg sublingual film 2020-02 00:00: 00 04-05 00:00 :00 No [id number] Per instruc tions NEEDED Per instructio ns NEEDED (route: sublingual ) Med Classific ation: Chemical Dependenc y, Agents to Treat divalproex 250 mg tablet,kassandra yed release 2020-02 00:00: 00 04-05 23:59 :00 No [id number] 250 mg DAILY 250 mg DAILY (route: oral) Med Classific ation: Central Nervous System Agents divalproex ER 500 mg tablet,exte nded release 24 hr 2020-02 00:00: 00 04-05 00:00 :00 No [id number] 500 mg 2 TIMES DAILY 500 mg 2 TIMES DAILY (route: oral) Med Classific ation: Central Nervous System Agents ferrous sulfate 325 mg (65 mg iron) tablet 2020-02 00:00: 00 04-05 00:00 :00 No [id number] 1 tablet DAILY 1 tablet DAILY (route: oral) Med Classific ation: Electroly te Balance-N utritiona l Products Invega Sustenna 156 mg/mL intramuscul ar syringe 2020-02 00:00: 00 05-11 23:59 :00 No [id number] 156 mg MONTHLY 156 mg MONTHLY (route: intramuscu lar) Med Classific ation: Central Nervous System Agents levothyroxi ne 25 mcg tablet 2020-02 00:00: 00 03-05 23:59 :00 No [id number] 25 mcg DAILY 25 mcg DAILY (route: oral) Med Classific ation: Endocrine lisinopril 5 mg tablet 2020-02 00:00: 00 11-21 23:59 :00 No [id number] 5 mg DAILY 5 mg DAILY (route: oral) Med Classific ation: Cardiovas cular Therapy Agents nicotine (polacrilex ) 4 mg gum 2020-02 00:00: 00 09-12 23:59 :00 No [id number] 4 gum NEEDED 4 gum NEEDED (route: buccal) Med Classific ation: Chemical Dependenc y, Agents to Treat nicotine 21mg/24hr-1 4mg/24hr-7m g/24hr daily transderm patches,seq uentl 2020-02 00:00: 00 09-12 23:59 :00 No [id number] 21 patch NEEDED 21 patch NEEDED (route: transderma l) Med Classific ation: Chemical Dependenc y, Agents to Treat nystatin 500,000 unit tablet 2020-02 00:00: 00 04-05 00:00 :00 No [id number] In unit 4 TIMES DAILY [id number] In unit 4 TIMES DAILY (route: oral) Med Classific ation: Anti-Infe ctive Agents omeprazole 20 mg tablet,kassandra yed release 2020-02 00:00: 00 Yes [id number] 20 mg DAILY 20 mg DAILY (route: oral) Med Classific ation: Gastroint estinal Therapy Agents prazosin 5 mg capsule 2020-02 00:00: 00 02-14 23:59 :00 No [id number] 5 capsule BEDTIME 5 capsule BEDTIME (route: oral) Med Classific ation: Cardiovas cular Therapy Agents trazodone 50 mg tablet 2020-02 00:00: 00 01-17 23:59 :00 No [id number] 50 mg NEEDED 50 mg NEEDED (route: oral) Med Classific ation: Central Nervous System Agents albuterol sulfate HFA 90 mcg/actuati on aerosol inhaler 04-05 00:00: 00 Yes [id number] 2 puff NEEDED 2 puff NEEDED (route: inhalation ) Med Classific ation: Respirato ry Therapy Agents Aspercreme with Aloe 10 % topical 04-05 00:00: 00 09-12 23:59 :00 No [id number] Per instruc tions NEEDED Per instructio ns NEEDED (route: topical) Med Classific ation: Dermatolo gical cyclobenzap rine 5 mg tablet 04-05 00:00: 00 01-17 23:59 :00 No [id number] 5 mg NEEDED 5 mg NEEDED (route: oral) Med Classific ation: Locomotor System Depakote 500 mg tablet,kassandra yed release 04-05 00:00: 00 05-06 23:59 :00 No [id number] 1000 mg 2 TIMES DAILY 1000 mg 2 TIMES DAILY (route: oral) Med Classific ation: Central Nervous System Agents diphenhydra mine 25 mg capsule 04-05 00:00: 00 06-01 23:59 :00 No [id number] 50 mg NEEDED 50 mg NEEDED (route: oral) Med Classific ation: Respirato ry Therapy Agents hydroxyzine HCl 50 mg tablet 2-15 00:00: 00 06-01 23:59 :00 No [id number] 50 mg 3 TIMES DAILY 50 mg 3 TIMES DAILY (route: oral) Med Classific ation: Central Nervous System Agents naltrexone 50 mg tablet 2-15 00:00: 00 06-01 23:59 :00 No [id number] 50 mg DAILY 50 mg DAILY (route: oral) Med Classific ation: Antidotes and other Reversal Agents Narcan 4 mg/actuatio n nasal spray 2-15 00:00: 00 06-01 23:59 :00 No [id number] Per instruc tions NEEDED Per instructio ns NEEDED (route: nasal) Med Classific ation: Antidotes and other Reversal Agents pyridoxine (vitamin B6) 25 mg tablet 2-15 00:00: 00 06-01 23:59 :00 No [id number] 25 mg DAILY 25 mg DAILY (route: oral) Med Classific ation: Electroly te Balance-N utritiona l Products Invega Sustenna 234 mg/1.5 mL intramuscul ar syringe 3-24 00:00: 00 Yes [id number] Per instruc tions MONTHLY Per instructio ns MONTHLY (route: intramuscu lar) Med Classific ation: Central Nervous System Agents Invega Sustenna 234 mg/1.5 mL intramuscul ar syringe 8-14 00:00: 00 11-30 23:59 :00 No [id number] 234 mg MONTHLY 234 mg MONTHLY (route: intramuscu lar) Med Classific ation: Central Nervous System Agents Celebrex 200 mg capsule 2021-02 0-26 00:00: 00 03-20 23:59 :00 No [id number] 200 mg 2 TIMES DAILY 200 mg 2 TIMES DAILY (route: oral) Alternate Route: NONE. Med Classific ation: Analgesic , Anti-infl ammatory or Antipyret ic Celebrex 200 mg capsule 1-30 00:00: 00 01-10 23:59 :00 No [id number] 200 mg DAILY 200 mg DAILY (route: oral) Alternate Route: NONE. Med Classific ation: Analgesic , Anti-infl ammatory or Antipyret ic docusate sodium 100 mg capsule 30 00:00: 00 01-29 23:59 :00 No [id number] 1 capsule 2 TIMES DAILY 1 capsule 2 TIMES DAILY (route: oral) Alternate Route: NONE. Med Classific ation: Gastroint estinal Therapy Agents Eliquis 2.5 mg tablet 30 00:00: 00 09-12 23:59 :00 No [id number] 1 tablet 2 TIMES DAILY 1 tablet 2 TIMES DAILY (route: oral) Med Classific ation: Hematolog ical Agents oxycodone 5 mg tablet 03-20 00:00: 00 04-18 23:59 :00 No [id number] Per instruc tions DIRECTED Per instructio ns DIRECTED (route: oral) Alternate Route: NONE. Med Classific ation: Analgesic , Anti-infl ammatory or Antipyret ic tramadol 50 mg tablet 03-20 00:00: 00 04-18 23:59 :00 No [id number] Per instruc tions DIRECTED Per instructio ns DIRECTED (route: oral) Med Classific ation: Analgesic , Anti-infl ammatory or Antipyret ic gabapentin 300 mg capsule 3-29 00:00: 00 01-10 23:59 :00 No [id number] 1 capsule 3 TIMES DAILY 1 capsule 3 TIMES DAILY (route: oral) Med Classific ation: Central Nervous System Agents cyclobenzap rine 5 mg tablet 7-27 00:00: 00 01-10 23:59 :00 No [id number] 1 tablet 3 TIMES DAILY 1 tablet 3 TIMES DAILY (route: oral) Med Classific ation: Locomotor System baclofen 10 mg tablet 2022-02 1-24 00:00: 00 03-30 23:59 :00 No [id number] 1 tablet DIRECTED 1 tablet DIRECTED (route: oral) Med Classific ation: Locomotor System docusate sodium 100 mg capsule 2022-02 00:00: 00 Yes [id number] 1 capsule NEEDED 1 capsule NEEDED (route: oral) Med Classific ation: Gastroint estinal Therapy Agents acetaminoph en 300 mg-codeine 30 mg tablet 2-09 00:00: 00 05-15 23:59 :00 No [id number] 1 tablet 3 TIMES DAILY 1 tablet 3 TIMES DAILY (route: oral) Med Classific ation: Analgesic , Anti-infl ammatory or Antipyret ic Paxlovid 300 mg (150 mg x 2)-100 mg tablets in a dose pack 09 00:00: 00 04-03 23:59 :00 No [id number] 3 tablet 2 TIMES DAILY 3 tablet 2 TIMES DAILY (route: oral) Med Classific ation: Anti-Infe ctive Agents tizanidine 4 mg tablet 03-30 00:00: 00 01-03 23:59 :00 No [id number] 1 tablet 3 TIMES DAILY 1 tablet 3 TIMES DAILY (route: oral) Med Classific ation: Locomotor System Depakote 500 mg tablet,kassandra yed release 3-23 00:00: 00 03-31 23:59 :00 No [id number] 1000 mg 2 TIMES DAILY 1000 mg 2 TIMES DAILY (route: oral) Med Classific ation: Central Nervous System Agents multivitami n tablet 15 00:00: 00 Yes [id number] 1 tablet DIRECTED 1 tablet DIRECTED (route: oral) Med Classific ation: Electroly te Balance-N utritiona l Products gabapentin 300 mg capsule 07-10 00:00: 00 Yes [id number] 2 capsule 3 TIMES DAILY 2 capsule 3 TIMES DAILY (route: oral) Med Classific ation: Central Nervous System Agents paliperidon e ER 1.5 mg tablet,exte nded release 24 hr 07-10 00:00: 00 11-22 23:59 :00 No [id number] 1 tablet DAILY 1 tablet DAILY (route: [...] nitrofurant oin macrocrysta l 100 mg capsule 2-11 00:00: 00 04-06 23:59 :00 No 1 capsule 2 TIMES DAILY 1 capsule 2 TIMES DAILY (route: oral) Med Classific ation: Genitouri nary Therapy clonazepam 0.5 mg tablet 2-14 00:00: 00 Yes 1 tablet DAILY 1 tablet DAILY (route: oral) Med Classific ation: Central Nervous System Agents propranolol 10 mg tablet 214 00:00: 00 Yes 1-2 tablet 3 TIMES DAILY 1-2 tablet 3 TIMES DAILY (route: oral) Med Classific ation: Cardiovas cular Therapy Agents HYDROCODONE -ACETAMINOP HEN ORAL -19 00:00: 00 10-12 00:00 :00 No 5-325 mg 5-325 [...] AMMATORY OR ANTIPYRET IC LEVOTHYROXI NE ORAL 5-10 00:00: 00 08-27 00:00 :00 No 50 mcg 50 mcg (route: ) Med Classific ation: ENDOCRINE LEVOTHYROXI NE ORAL 8-10 00:00: 00 10-12 00:00 :00 No 25 mcg 25 mcg (route: ) Med Classific ation: ENDOCRINE CHLORPROMAZ INE ORAL 04 00:00: 00 08-22 00:00 :00 No 100 mgONE TABLET ONCE DAILY AT BEDTIME 100 mgONE TABLET ONCE DAILY AT BEDTIME (route: ) Alternate Route: (100MG) BY MOUTH . Med Classific ation: CENTRAL NERVOUS SYSTEM AGENTS CHLORPROMAZ INE ORAL 14 00:00: 00 2019- 06-22 00:00 :00 No FOR ANXIETY 25 mgONE TABLET EVERY 6 HOURS NEEDED 25 mgONE TABLET EVERY 6 HOURS NEEDED (route: ) Alternate Route: (25MG) BY MOUTH . Med Classific ation: CENTRAL NERVOUS SYSTEM AGENTS CHLORPROMAZ INE ORAL 6-04 00:00: 00 08-22 00:00 :00 No 50 mgONE TABLET [...] SYSTEM AGENTS FLUOXETINE ORAL 4-14 00:00: 00 07-02 00:00 :00 No 20 mg1 CAPSULE EVERY DAY 20 mg1 CAPSULE EVERY DAY (route: ) Alternate Route: BY MOUTH . Med Classific ation: CENTRAL NERVOUS SYSTEM AGENTS OMEPRAZOLE ORAL 22 00:00: 00 09-23 00:00 :00 No 40 mg 40 mg (route: ) Med Classific ation: GASTROINT ESTINAL THERAPY AGENTS OMEPRAZOLE ORAL 6 00:00: 00 08-22 00:00 :00 No 40 mgONE CAPSULE ONCE DAILY 40 mgONE CAPSULE ONCE DAILY (route: ) Alternate Route: (40MG) BY MOUTH . Med Classific ation: GASTROINT ESTINAL THERAPY AGENTS OMEPRAZOLE ORAL 208 00:00: 04-28 00:00 :00 No 20 mg1 TABLET [...] THERAPY AGENTS FERROUS SULFATE ORAL 9-20 00:00: 12-08 00:00 :00 No 325 mg (65 mg iron)1 TABLET THREE TIMES A DAY 325 mg (65 mg iron)1 TABLET THREE TIMES A DAY (route: ) Alternate Route: BY MOUTH . Med Classific ation: ELECTROLY TE BALANCE-N UTRITIONA L PRODUCTS FERROUS SULFATE ORAL 7-31 00:00: 10-18 00:00 :00 No 325 mg (65 mg iron)1 TABLET THREE TIMES A DAY 325 mg (65 mg iron)1 TABLET THREE TIMES A DAY (route: ) Alternate Route: BY MOUTH . Med Classific ation: ELECTROLY TE BALANCE-N UTRITIONA L PRODUCTS FERROUS SULFATE ORAL 04 00:00: 08-22 00:00 :00 No 325 mg (65 mg iron)ON E TABLET 3 TIMES DAILY 325 mg (65 mg iron)ONE TABLET 3 TIMES DAILY (route: ) Alternate Route: (325MG) BY MOUTH . Med Classific ation: ELECTROLY TE BALANCE-N UTRITIONA L PRODUCTS TRAMADOL ORAL 2018-02 0-07 00:00: 11-28 00:00 :00 No 50 mg 50 mg (route: ) Med Classific ation: ANALGESIC , ANTI-INFL AMMATORY OR ANTIPYRET IC QUETIAPINE ORAL 604 00:00: 00 08-22 00:00 :00 No 200 [...] ation: CENTRAL NERVOUS SYSTEM AGENTS QUETIAPINE ORAL 2019-0 1-03 00:00: 00 03-07 00:00 :00 No 400 mg 400 mg (route: ) Med Classific ation: CENTRAL NERVOUS SYSTEM AGENTS LOPERAMIDE ORAL 2018-02 0-04 00:00: 00 12-02 00:00 :00 No 2 mg ONCE DAILY NEEDED 2 mg ONCE DAILY NEEDED (route: ) Alternate Route: BY MOUTH . Med Classific ation: GASTROINT ESTINAL THERAPY AGENTS IBUPROFEN ORAL 0 6-08 00:00: 07-30 00:00 :00 No 600 mg 600 mg (route: ) Med Classific ation: ANALGESIC , ANTI-INFL AMMATORY OR ANTIPYRET IC IBUPROFEN ORAL 0 5-10 00:00: 00 07-28 00:00 :00 No 600 mg 600 mg (route: ) Med Classific ation: ANALGESIC , ANTI-INFL AMMATORY OR ANTIPYRET IC LITHIUM CARBONATE ORAL 4-10 00:00: 00 08-27 00:00 :00 No [...] CENTRAL NERVOUS SYSTEM AGENTS LITHIUM CARBONATE ORAL 9-30 00:00: 00 12-18 00:00 :00 No 450 mgONE TABLET THREE TIMES DAILY 450 mgONE TABLET THREE TIMES DAILY (route: ) Alternate Route: (450MG) BY MOUTH . Med Classific ation: CENTRAL NERVOUS SYSTEM AGENTS LITHIUM CARBONATE ORAL 0 8-10 00:00: 00 10-12 00:00 :00 No 450 mg 450 mg (route: ) Med Classific ation: CENTRAL NERVOUS SYSTEM AGENTS LITHIUM CARBONATE ORAL 0 7-22 00:00: 00 09-23 00:00 [...] ORAL 6-04 00:00: 08-22 00:00 :00 No 500 mg2 TABLETS [...] 6-04 00:00: 00 08-22 00:00 :00 No 250 mgONE TABLET ONCE DAILY AT BEDTIME 250 mgONE TABLET ONCE DAILY AT BEDTIME (route: ) Alternate Route: (250MG) BY MOUTH . Med Classific ation: CENTRAL NERVOUS SYSTEM AGENTS PREDNISONE ORAL 6-14 00:00: 00 08-08 00:00 :00 No 20 mgTHREE TABLETS TWO TABLETS ONE TABLET DAILY FOR 2 DAYS DAILY F OR 2 DAYS DAILY FOR 2 DAYS 20 mgTHREE TABLETS TWO TABLETS ONE TABLET DAILY FOR 2 DAYS DAILY F OR 2 DAYS DAILY FOR 2 DAYS (route: ) Alternate Route: BY MOUTH . Med Classific ation: ENDOCRINE PREDNISONE ORAL 2018-02 0-20 00:00: 12-14 00:00 :00 No 10 mg 6 TABS EVERYDAY X 2 DAYS THEN 4 TABS X 2 DAYS THEN 2 TABS X 2 D 10 mg 6 TABS EVERYDAY X 2 DAYS THEN 4 TABS X 2 DAYS THEN 2 TABS X 2 D (route: ) Med Classific ation: ENDOCRINE PREDNISONE ORAL 6-08 00:00: 00 08-04 00:00 :00 No 10 mg 10 mg (route: ) Med Classific ation: ENDOCRINE BANOPHEN ORAL 0 7-31 00:00: 00 10-18 00:00 :00 No 50 mgONE CAPSULE AT BEDTIME NEEDED 50 mgONE CAPSULE AT BEDTIME NEEDED (route: ) Alternate Route: BY MOUTH . Med Classific ation: RESPIRATO RY THERAPY AGENTS RISPERIDONE ORAL 2018-02 0-16 00:00: 01-03 00:00 :00 No 3 mg1 TABLET EVERYDAY AT BEDTIME 3 mg1 TABLET EVERYDAY AT BEDTIME (route: ) Alternate Route: BY MOUTH . Med Classific ation: CENTRAL NERVOUS SYSTEM AGENTS RISPERIDONE ORAL 0 8-10 00:00: 10-12 00:00 :00 No 1 mg 1 mg (route: ) Med Classific ation: CENTRAL NERVOUS SYSTEM AGENTS RISPERIDONE ORAL 3-29 00:00: 00 06-16 00:00 :00 No 1 mg1 TABLET TWICE A DAY 1 mg1 TABLET TWICE A DAY (route: ) Alternate Route: BY MOUTH . Med Classific ation: CENTRAL NERVOUS SYSTEM AGENTS NICOTINE TRANSDERMAL 0 6-04 00:00: 00 08-20 00:00 :00 No 21 mg/24 hr1 PATCH (21MG) TRANSDERMA LLY ONCE DAILY 21 mg/24 hr1 PATCH (21MG) TRANSDERMA LLY ONCE DAILY (route: ) Med Classific ation: CHEMICAL DEPENDENC Y, AGENTS TO TREAT HYDROXYZINE PAMOATE ORAL 0 8-13 00:00: 00 10-31 00:00 :00 No 25 mg 25 mg (route: ) Med Classific ation: CENTRAL NERVOUS SYSTEM AGENTS HYDROXYZINE PAMOATE ORAL 0 5-13 00:00: 00 07-31 00:00 :00 No 25 mg 25 mg (route: ) Med Classific ation: CENTRAL NERVOUS SYSTEM AGENTS HYDROXYZINE PAMOATE ORAL 0 4-20 00:00: 00 06-18 00:00 :00 No 50 mg1 CAP EVERY 4 (FOUR) HOURS NEEDED 50 mg1 CAP EVERY 4 (FOUR) HOURS NEEDED (route: ) Alternate Route: BY MOUTH . Med Classific ation: CENTRAL NERVOUS SYSTEM AGENTS HYDROXYZINE PAMOATE ORAL 1-03 00:00: 00 03-07 00:00 :00 No 50 mg 50 mg (route: ) Med Classific ation: CENTRAL NERVOUS SYSTEM AGENTS HYDROXYZINE HCL ORAL 7-22 00:00: 00 09-23 00:00 :00 No 50 mg 50 mg (route: ) Med Classific ation: CENTRAL NERVOUS SYSTEM AGENTS BACLOFEN ORAL 8-10 00:00: 09-30 00:00 :00 No 10 mg 10 mg (route: ) Med Classific ation: LOCOMOTOR SYSTEM BACLOFEN ORAL 6-14 00:00: 00 08-16 00:00 :00 No 10 mgONE TABLET TWO TO THREE TIMES DAILY NEEDED 10 mgONE TABLET TWO TO THREE TIMES DAILY NEEDED (route: ) Alternate Route: (10MG) BY MOUTH . Med Classific ation: LOCOMOTOR SYSTEM BENZTROPINE ORAL 22 00:00: 00 09-23 00:00 :00 No 0.5 [...] CARDIOVAS CULAR THERAPY AGENTS CYCLOBENZAP RINE ORAL 0 5-10 00:00: 00 07-08 00:00 :00 No 10 mg 10 mg (route: ) Med Classific ation: LOCOMOTOR SYSTEM CYCLOBENZAP RINE ORAL 0 5-17 00:00: 00 07-11 00:00 :00 No 5 mg EVERY MORNING NEEDED AT BEDTIME 5 mg EVERY MORNING NEEDED AT BEDTIME (route: ) Med Classific ation: LOCOMOTOR SYSTEM LORAZEPAM ORAL 0 8-12 00:00: 00 10-14 00:00 :00 No [...] Classific ation: ANTI-INFE CTIVE AGENTS TOPIRAMATE ORAL 2-12 00:00: 00 04-17 00:00 :00 No 25 mg1 TABLET TWICE A DAY 25 mg1 TABLET TWICE A DAY (route: ) Alternate Route: BY MOUTH . Med Classific ation: CENTRAL NERVOUS SYSTEM AGENTS TOPIRAMATE ORAL 1-16 00:00: 00 03-20 00:00 :00 No 25 mg1 T BID 25 mg1 T BID (route: ) Alternate Route: PO . Med Classific ation: CENTRAL NERVOUS SYSTEM AGENTS TOPIRAMATE ORAL 1-03 00:00: 00 03-07 00:00 :00 No 25 mg 25 mg (route: ) Med Classific ation: CENTRAL NERVOUS SYSTEM AGENTS TOPIRAMATE ORAL 6-04 00:00: 08-22 00:00 :00 No 200 mg1/2 TABLET TWICE A DAY 200 mg1/2 TABLET TWICE A DAY (route: ) Alternate Route: (100MG) BY MOUTH . Med Classific ation: CENTRAL NERVOUS SYSTEM AGENTS TOPIRAMATE ORAL 8-10 00:00: 00 10-12 00:00 :00 No 100 mg 100 mg (route: ) Med Classific ation: CENTRAL NERVOUS SYSTEM AGENTS TOPIRAMATE ORAL 7-22 00:00: 00 09-23 00:00 :00 No 100 mg 100 mg (route: ) Med Classific ation: CENTRAL NERVOUS SYSTEM AGENTS PANTOPRAZOL E ORAL 8-10 00:00: 00 10-12 00:00 :00 No 40 mg 40 mg (route: ) Med Classific ation: GASTROINT ESTINAL THERAPY AGENTS PANTOPRAZOL E ORAL 7-31 00:00: 00 10-18 00:00 :00 No 40 mg1 TABLET EVERY DAY 40 mg1 TABLET EVERY DAY (route: ) Alternate Route: BY MOUTH . Med Classific ation: GASTROINT ESTINAL THERAPY AGENTS ANTI-DIARRH EAL (LOPERAMIDE ) ORAL 5-17 00:00: 07-15 00:00 :00 No 2 mg ONCE DAILY NEEDED 2 mg ONCE DAILY NEEDED (route: ) Alternate Route: BY MOUTH . Med Classific ation: GASTROINT ESTINAL THERAPY AGENTS DAILY VALUE ORAL 09-18 00:00: 00 10-18 00:00 :00 No 1 TABLET EVERY DAY 1 TABLET EVERY DAY (route: ) Alternate Route: BY MOUTH . Med Classific ation: ELECTROLY TE BALANCE-N UTRITIONA L PRODUCTS Vital Signs Vital Name Observation Time Observation Value Commen ts Temperature 2024-04-07 09:18:00.000 98.7 [degF] Temperature 2024-04-03 10:30:00.000 97.9 [degF] Temperature 2024-04-01 16:18:00.000 98 [degF] Temperature 2024-03-28 11:37:00.000 97.4 [degF] Temperature 2024-03-24 10:57:00.000 98 [degF] Temperature 2024-03-17 12:27:00.000 98.8 [degF] Temperature 2024-03-10 12:06:00.000 98 [degF] Pulse 2024-04-07 09:18:00.000 92 /min Pulse 2024-04-03 10:37:00.000 96 /min Pulse 2024-03-28 11:37:00.000 90 /min Pulse 2024-03-24 10:57:00.000 88 /min Pulse 2024-03-17 12:25:00.000 80 /min Pulse 2024-03-10 12:06:00.000 75 /min O2 Saturation (%) 2024-04-03 10:30:00.000 97 % Respirations 2024-04-07 09:18:00.000 16 /min Respirations 2024-04-03 10:30:00.000 16 /min Respirations 2024-03-28 11:37:00.000 16 /min Respirations 2024-03-24 10:57:00.000 16 /min Respirations 2024-03-17 12:27:00.000 16 /min Respirations 2024-03-10 12:06:00.000 16 /min Systolic Blood Pressure 2024-04-07 09:18:00.000 106 mm [Hg] Systolic Blood Pressure 2024-04-03 10:23:00.000 106 mm [Hg] Systolic Blood Pressure 2024-03-28 11:37:00.000 110 mm [Hg] Systolic Blood Pressure 2024-03-24 10:57:00.000 110 mm [Hg] Systolic Blood Pressure 2024-03-17 12:27:00.000 132 mm [Hg] Systolic Blood Pressure 2024-03-14 11:20:00.000 140 mm [Hg] Systolic Blood Pressure 2024-03-10 12:06:00.000 110 mm [Hg] Diastolic Blood Pressure 2024-04-07 09:18:00.000 74 mm [Hg] Diastolic Blood Pressure 2024-04-03 10:23:00.000 [...] AWARENESS FOR SAFETY AND WILL NOTIFY CLINICAL UTILITY WORKER PRODUCTION AND PHYSICIAN/PROVIDER WITH ANY CHANGE IN CONDITION. [code = SKILLED NURSE WILL MAINTAIN SITUATIONAL AWARENESS FOR SAFETY AND WILL NOTIFY CLINICAL UTILITY WORKER PRODUCTION AND PHYSICIAN/PROVIDER WITH ANY CHANGE IN CONDITION.] [...] REDUCE AVOIDABLE HOSPITALIZATION AND ED USE.] Goal 2023-07-06 Patient Goal - G O [...] - TO BE MED ADH ERENT Goal 2023-05-07 Patient Goal - G O TO THE GYM, STAY SOBER, KEEP LOWERING NICOTINE LEVEL Goal 2023-03-08 Patient Goal - G O TO THE GYM, STAY SOBER, KEEP LOWERING NICOTINE LEVEL Goal 2023-01-10 Patient Goal - G O [...] Date: 2024 by GABBY HERRERA RN]:</paragraph><paragraph>PATIENT ALERT ORIENTED X3. PATIENT REPORTS THAT SHE HAD A HARD WEEKEND. REPORTS THAT SHE FELT OVER SEDATED WITH THE MEDICATION CHANGES AND SPOKE WITH DR MACIAS OVER THE WEEKEND TO NOTIFY.STATES THAT THE EXTRA PRN DOSE OF THE SEROQUEL MADE HER VERY DROWSY AND SHE IS HOLDING OFF ON THE PRN DOSE UNTIL SHE SEES THE DOCTOR TOMORROW. ALSO REPORTS THAT SHE IS HAVING ISSUES WITH HER FAMILY INCLUDING HER MOTHER AND DAUGHTER.PT DENIES SI/HI AND STATES I WILL NOT HARM MYSELF AND I KNOW THE NUMBER TO CRISIS. COPING STRATEGIES DISCUSSED. PATIENT REPORTS THAT SHE HAS A GOOD SUPPORT SYSTEM WITH HER [employer] SUPPORT GROUP AND REPORTS THAT SHE HAS BEEN TALKING TO THEM OVER THE WEEKEND. PATIENT REPORTS COMPLIANCE WITH TAKING PREFILLED MEDS, APPEARS COMPLIANT PILL ORGANIZER EMPTY APPROPRIATELY.</paragraph> <paragraph>[Visit Date: 2024 by GABBY HERRERA RN]:</paragraph><paragraph>PATIENT [...] VOIDING CLEAR YELLOW URINE AND PATIENT AFEBRILE.</paragraph> Encounters Start Date/Time End Date/Time Encounter Type Admission Type Attending [facility] Care Department Encounter ID Discharge Date Discharge Status Discharge Condition Discharge Reason Percent Goals Met 2022-01-17 00:00:00 2024-05-05 00:00:00 Outpatient RECERTIFIC ATION GABBY HERRERA [facility] [id number] 43.75
--- OUTSIDE RECORDS SUMMARY | 2024-04-08 12:21 | XMS_ITS | Encounter Summary ---
Author Organization [employer] Address [address] [facility] [address]t [place] [address] Care Team Providers Care Electrolysis Operator Name Role Phone Maddie Kim MD Primary Care Provider [phone] Encounter Details Date Type Department Care Team ([facility] st Contact Info) Description 03/24/2024 Telephone [facility] MEDICINE [address] [place], [place] [phone] Maddie Kim MD [address] [place], [place] [phone] Social History Tobacco Use Types Packs/Day Years [...] is currently admitted to [facility] d/t hypokalemia, hyperkalemia and hypotension. Patient admitted [...] 3:29 PM EST TC placed to patient [phone] to inform patient, PCP would like patient to repeat BW tomorrow [facility]. If sodium returns low again then [...] Name of Caller/Facility:Lauren Gage RN Callback number: [phone] Reason for Call: NA [phone] Lauren RN [...] team nurses for follow up. High Priority Dob[employer] Chat Secure Message also sent to Red Team Nurses. documented in this encounter Plan of Treatment Upcoming Encounters Date Type Department Care Team (Late st Contact Info) Description 04/18/2024 9:00 AM EST Nutrition [facility] DIABETES/NUTRITION [address] [place] [address] Rosie Vick, SHANICE [address] [place] [address] documented as of this encounter Visit Diagnoses Not on filedocumented in this encounter Additional Health Concerns Assessment Noted Time PHQ-9 Depression Total Score: 3 06/15/19 24 11:48 AM EDT documented as of this encounter Care Teams Electrolysis Operator Relationship Specialty Start Date End Date Maddie Kim MD [address] [place] [address] PCP - General Family Medicine 07/12/20 Willie Gage 01/17/22 documented as of this encounter
--- OUTSIDE RECORDS SUMMARY | 2024-04-08 12:21 | XMS_ITS | Encounter Summary ---
Author Organization [employer] Address [address] [facility] 7t [place] [address] Care Team Providers Care Design Painter Name Role Phone Maddie Kim MD Primary Care Provider [phone] Reason for Visit * Reason Comments Med Refill Encounter Details Date Type Department Care Team ([facility] st Contact Info) Description 04/05/2023 Refill [facility] [address] [place] [phone] Isac Gonzalez MD [address] [place] [phone] Chronic bilateral low back pain without sciatica [...] - 04/06/2023 12:46 PM EST TC to [facility] pharmacy, T3 RX written 03/29/23 for [...] Description 04/18/2024 9:00 AM EST Nutrition [facility] DIABETES/NUTRITION [address] [place] [address] [place] [address] documented as of this encounter Visit Diagnoses Diagnosis Chronic bilateral low back pain without sciatica documented in this encounter Additional Health Concerns Assessment Noted Time PHQ-9 Depression Total Score: 0 05/30/19 23 3:26 PM EDT documented as of this encounter Care Teams Design Painter Relationship Specialty Start Date End Date Maddie Kim MD [address] [place] [address] PCP - General Family Medicine 07/12/20 Willie Gage 01/17/22 documented as of this encounter
--- OUTSIDE RECORDS SUMMARY | 2024-04-08 12:21 | XMS_ITS | Clinical Summary ---
Author Organization Unknown Care Team Providers Care Agricultural Education Professor Name Role Phone MARLON AHUMADA, JEAN-PIERRE Unavailable Unavailable ENRIQUE WEINSTEINW, WINNIE Unavailable Unavailable KATINA RN, ANASTACIA Unavailable Unavailable SMILEY RN, JENNI Unavailable Unavailable JAVIER RN, GABBY Unavailable Unavaila ble Payers Payer Name Policy Type Policy Number Effective Date Expira tion Date [facility] [id number] [place] [id number] MEDICARE - [facility] - [place] [id number] Problems Condition Name Condition Details Condition Category [...] 2020-02 00:00: 00 03-07 00:00 :00 No [id number] 10 mg 3 TIMES DAILY 10 mg 3 TIMES DAILY (route: oral) Med Classific ation: Locomotor System buprenorphi ne 4 mg-naloxone 1 mg sublingual film 2020-02 00:00: 00 04-05 00:00 :00 No [id number] Per instruc tions NEEDED Per instructio ns NEEDED (route: sublingual ) Med Classific ation: Chemical Dependenc y, Agents to Treat divalproex 250 mg tablet,kassandra yed release 2020-02 00:00: 00 04-05 23:59 :00 No [id number] 250 mg DAILY 250 mg DAILY (route: oral) Med Classific ation: Central Nervous System Agents divalproex ER 500 mg tablet,exte nded release 24 hr 2020-02 00:00: 00 04-05 00:00 :00 No [id number] 500 mg 2 TIMES DAILY 500 mg 2 TIMES DAILY (route: oral) Med Classific ation: Central Nervous System Agents ferrous sulfate 325 mg (65 mg iron) tablet 2020-02 00:00: 00 04-05 00:00 :00 No [id number] 1 tablet DAILY 1 tablet DAILY (route: oral) Med Classific ation: Electroly te Balance-N utritiona l Products Invega Sustenna 156 mg/mL intramuscul ar syringe 2020-02 00:00: 00 05-11 23:59 :00 No [id number] 156 mg MONTHLY 156 mg MONTHLY (route: intramuscu lar) Med Classific ation: Central Nervous System Agents levothyroxi ne 25 mcg tablet 2020-02 00:00: 00 03-05 23:59 :00 No [id number] 25 mcg DAILY 25 mcg DAILY (route: oral) Med Classific ation: Endocrine lisinopril 5 mg tablet 2020-02 00:00: 00 11-21 23:59 :00 No [id number] 5 mg DAILY 5 mg DAILY (route: oral) Med Classific ation: Cardiovas cular Therapy Agents nicotine (polacrilex ) 4 mg gum 2020-02 00:00: 00 09-12 23:59 :00 No [id number] 4 gum NEEDED 4 gum NEEDED (route: buccal) Med Classific ation: Chemical Dependenc y, Agents to Treat nicotine 21mg/24hr-1 4mg/24hr-7m g/24hr daily transderm patches,seq uentl 2020-02 00:00: 00 09-12 23:59 :00 No [id number] 21 patch NEEDED 21 patch NEEDED (route: transderma l) Med Classific ation: Chemical Dependenc y, Agents to Treat nystatin 500,000 unit tablet 2020-02 00:00: 00 04-05 00:00 :00 No [id number] In unit 4 TIMES DAILY [id number] In unit 4 TIMES DAILY (route: oral) Med Classific ation: Anti-Infe ctive Agents omeprazole 20 mg tablet,kassandra yed release 2020-02 00:00: 00 Yes [id number] 20 mg DAILY 20 mg DAILY (route: oral) Med Classific ation: Gastroint estinal Therapy Agents prazosin 5 mg capsule 2020-02 00:00: 00 02-14 23:59 :00 No [id number] 5 capsule BEDTIME 5 capsule BEDTIME (route: oral) Med Classific ation: Cardiovas cular Therapy Agents trazodone 50 mg tablet 2020-02 00:00: 00 01-17 23:59 :00 No [id number] 50 mg NEEDED 50 mg NEEDED (route: oral) Med Classific ation: Central Nervous System Agents albuterol sulfate HFA 90 mcg/actuati on aerosol inhaler 04-05 00:00: 00 Yes [id number] 2 puff NEEDED 2 puff NEEDED (route: inhalation ) Med Classific ation: Respirato ry Therapy Agents Aspercreme with Aloe 10 % topical 04-05 00:00: 00 09-12 23:59 :00 No [id number] Per instruc tions NEEDED Per instructio ns NEEDED (route: topical) Med Classific ation: Dermatolo gical cyclobenzap rine 5 mg tablet 04-05 00:00: 00 01-17 23:59 :00 No [id number] 5 mg NEEDED 5 mg NEEDED (route: oral) Med Classific ation: Locomotor System Depakote 500 mg tablet,kassandra yed release 04-05 00:00: 00 05-06 23:59 :00 No [id number] 1000 mg 2 TIMES DAILY 1000 mg 2 TIMES DAILY (route: oral) Med Classific ation: Central Nervous System Agents diphenhydra mine 25 mg capsule 04-05 00:00: 00 06-01 23:59 :00 No [id number] 50 mg NEEDED 50 mg NEEDED (route: oral) Med Classific ation: Respirato ry Therapy Agents hydroxyzine HCl 50 mg tablet 2-15 00:00: 00 06-01 23:59 :00 No [id number] 50 mg 3 TIMES DAILY 50 mg 3 TIMES DAILY (route: oral) Med Classific ation: Central Nervous System Agents naltrexone 50 mg tablet 2-15 00:00: 00 06-01 23:59 :00 No [id number] 50 mg DAILY 50 mg DAILY (route: oral) Med Classific ation: Antidotes and other Reversal Agents Narcan 4 mg/actuatio n nasal spray 2-15 00:00: 00 06-01 23:59 :00 No [id number] Per instruc tions NEEDED Per instructio ns NEEDED (route: nasal) Med Classific ation: Antidotes and other Reversal Agents pyridoxine (vitamin B6) 25 mg tablet 2-15 00:00: 00 06-01 23:59 :00 No [id number] 25 mg DAILY 25 mg DAILY (route: oral) Med Classific ation: Electroly te Balance-N utritiona l Products Invega Sustenna 234 mg/1.5 mL intramuscul ar syringe 3-24 00:00: 00 Yes [id number] Per instruc tions MONTHLY Per instructio ns MONTHLY (route: intramuscu lar) Med Classific ation: Central Nervous System Agents Invega Sustenna 234 mg/1.5 mL intramuscul ar syringe 8-14 00:00: 00 11-30 23:59 :00 No [id number] 234 mg MONTHLY 234 mg MONTHLY (route: intramuscu lar) Med Classific ation: Central Nervous System Agents Celebrex 200 mg capsule 2021-02 0-26 00:00: 00 03-20 23:59 :00 No [id number] 200 mg 2 TIMES DAILY 200 mg 2 TIMES DAILY (route: oral) Alternate Route: NONE. Med Classific ation: Analgesic , Anti-infl ammatory or Antipyret ic Celebrex 200 mg capsule 1-30 00:00: 00 01-10 23:59 :00 No [id number] 200 mg DAILY 200 mg DAILY (route: oral) Alternate Route: NONE. Med Classific ation: Analgesic , Anti-infl ammatory or Antipyret ic docusate sodium 100 mg capsule 30 00:00: 00 01-29 23:59 :00 No [id number] 1 capsule 2 TIMES DAILY 1 capsule 2 TIMES DAILY (route: oral) Alternate Route: NONE. Med Classific ation: Gastroint estinal Therapy Agents Eliquis 2.5 mg tablet 30 00:00: 00 09-12 23:59 :00 No [id number] 1 tablet 2 TIMES DAILY 1 tablet 2 TIMES DAILY (route: oral) Med Classific ation: Hematolog ical Agents oxycodone 5 mg tablet 03-20 00:00: 00 04-18 23:59 :00 No [id number] Per instruc tions DIRECTED Per instructio ns DIRECTED (route: oral) Alternate Route: NONE. Med Classific ation: Analgesic , Anti-infl ammatory or Antipyret ic tramadol 50 mg tablet 03-20 00:00: 00 04-18 23:59 :00 No [id number] Per instruc tions DIRECTED Per instructio ns DIRECTED (route: oral) Med Classific ation: Analgesic , Anti-infl ammatory or Antipyret ic gabapentin 300 mg capsule 3-29 00:00: 00 01-10 23:59 :00 No [id number] 1 capsule 3 TIMES DAILY 1 capsule 3 TIMES DAILY (route: oral) Med Classific ation: Central Nervous System Agents cyclobenzap rine 5 mg tablet 7-27 00:00: 00 01-10 23:59 :00 No [id number] 1 tablet 3 TIMES DAILY 1 tablet 3 TIMES DAILY (route: oral) Med Classific ation: Locomotor System baclofen 10 mg tablet 2022-02 1-24 00:00: 00 03-30 23:59 :00 No [id number] 1 tablet DIRECTED 1 tablet DIRECTED (route: oral) Med Classific ation: Locomotor System docusate sodium 100 mg capsule 2022-02 00:00: 00 Yes [id number] 1 capsule NEEDED 1 capsule NEEDED (route: oral) Med Classific ation: Gastroint estinal Therapy Agents acetaminoph en 300 mg-codeine 30 mg tablet 2-09 00:00: 00 05-15 23:59 :00 No [id number] 1 tablet 3 TIMES DAILY 1 tablet 3 TIMES DAILY (route: oral) Med Classific ation: Analgesic , Anti-infl ammatory or Antipyret ic Paxlovid 300 mg (150 mg x 2)-100 mg tablets in a dose pack 09 00:00: 00 04-03 23:59 :00 No [id number] 3 tablet 2 TIMES DAILY 3 tablet 2 TIMES DAILY (route: oral) Med Classific ation: Anti-Infe ctive Agents tizanidine 4 mg tablet 03-30 00:00: 00 01-03 23:59 :00 No [id number] 1 tablet 3 TIMES DAILY 1 tablet 3 TIMES DAILY (route: oral) Med Classific ation: Locomotor System Depakote 500 mg tablet,kassandra yed release 3-23 00:00: 00 03-31 23:59 :00 No [id number] 1000 mg 2 TIMES DAILY 1000 mg 2 TIMES DAILY (route: oral) Med Classific ation: Central Nervous System Agents multivitami n tablet 15 00:00: 00 Yes [id number] 1 tablet DIRECTED 1 tablet DIRECTED (route: oral) Med Classific ation: Electroly te Balance-N utritiona l Products gabapentin 300 mg capsule 07-10 00:00: 00 Yes [id number] 2 capsule 3 TIMES DAILY 2 capsule 3 TIMES DAILY (route: oral) Med Classific ation: Central Nervous System Agents paliperidon e ER 1.5 mg tablet,exte nded release 24 hr 07-10 00:00: 00 11-22 23:59 :00 No [id number] 1 tablet DAILY 1 tablet DAILY (route: [...] AWARENESS FOR SAFETY AND WILL NOTIFY CLINICAL OFFICE TECHNOLOGY PROFESSOR AND PHYSICIAN/PROVIDER WITH ANY CHANGE IN CONDITION. [code = SKILLED NURSE WILL MAINTAIN SITUATIONAL AWARENESS FOR SAFETY AND WILL NOTIFY CLINICAL OFFICE TECHNOLOGY PROFESSOR AND PHYSICIAN/PROVIDER WITH ANY CHANGE IN CONDITION.] [...] End Date/Time Encounter Type Admission Type Attending [facility] Care Department Encounter ID Discharge Date Discharge Status Discharge Condition Discharge Reason Percent Goals Met 2022-01-17 00:00:00 2024-05-05 00:00:00 Outpatient RECERTIFIC ATION GABBY HERRERA [facility] [id number] 43.75
--- OUTSIDE RECORDS SUMMARY | 2024-04-08 12:21 | XMS_ITS | Encounter Summary ---
Author Organization [employer] Address [address] [facility] [address]t [place] [address] Care Team Providers Care Live Ammunition Inspector Name Role Phone Maddie Kim MD Primary Care Provider [phone] Encounter Details Date Type Department Care Team ([facility] st Contact Info) Description 03/19/2023 Orders Only [facility] MEDICINE [address] [place], [place] [phone] Maddie Kim MD [address] [place], [place] [phone] Herniated lumbar intervertebral disc (Primary Dx) Social [...] Nutrition [facility] DIABETES/NUTRITION [address] [place] [address] Rosie Vick, SHANICE [address] [place] [address] documented as of this encounter Visit Diagnoses Diagnosis Herniated lumbar intervertebral disc- Primary Displacement of lumbar intervertebral disc without myelopathy documented in this encounter Additional Health Concerns Assessment Noted Time PHQ-9 Depression Total Score: 0 05/30/19 23 3:26 PM EDT documented as of this encounter Care Teams Live Ammunition Inspector Relationship Specialty Start Date End Date Maddie Kim MD [address] [place] [address] PCP - General Family Medicine 07/12/20 Willie Gage 01/17/22 documented as of this encounter
--- OUTSIDE RECORDS SUMMARY | 2024-04-08 12:21 | XMS_ITS | Encounter Summary ---
Author Organization [employer] Address [address] [place] [address] 7t [place] [address] Care Team Providers Care Greeter Guest Services Name Role Phone Maddie Kim MD Primary Care Provider [phone] Reason for Visit * Reason Onset Date Comments NTTS 03/24/2024 Encounter Details Date Type Department Care Team ([facility] Contact Info) Description 03/24/2024 Telephone [facility] MEDICINE [address] [place], [place] [phone] Sheila Rene RN [address] [place] [address] NTTS Social History Tobacco Use Types Packs/Day [...] for a consult. TC placed to patient [phone] who reports [facility] evaluated her on 03/22/24 and stated she does not have a UTI. Patient reports she was informed her pain is most likely related to her bladder mesh which was placed after her bladder lifting surgery in 2022. Patient also reports she is currently at a partial program and the provider ordered BW which patient completed on 03/21/24 via [facility] labs and her sodium returned low at [...] new appointment date and time. RN called [facility] [phone] to request visit note from 03/22/24 to be faxed to [phone]. RN also obtained [facility] labs from 03/21/24 and scanned into chart. documented in this encounter Plan of Treatment Upcoming Encounters Date Type Department Care Team (Late st Contact Info) Description 04/18/2024 9:00 AM EST Nutrition [facility] DIABETES/NUTRITION [address] [place] [address] Rosie Vick, SHANICE [address] [place] [address] documented as of this encounter Visit Diagnoses Not on filedocumented in this encounter Additional Health Concerns Assessment Noted Time PHQ-9 Depression Total Score: 3 06/15/19 24 11:48 AM EDT documented as of this encounter Care Teams Greeter Guest Services Relationship Specialty Start Date End Date Maddie Kim MD [address] [place] [address] PCP - General Family Medicine 07/12/20 Willie Gage 01/17/22 documented as of this encounter
[2024-04-08 12:22] LABS: Anion Gap 11 (12-20); Blood Urea Nitrogen 7 mg/dL (9-16); Calcium 9.3 mg/dL (8.4-10.2); Carbon Dioxide 26 mmol/L (22-29); Chloride 102 mmol/L (96-108); Estimated Glomerular Filt Rate > 60; Glucose Random 80 mg/dL (60-115); Sodium 134 mmol/L (135-145)
== END 2024-04-08 11:08 | disposition home or self-care (01) ==
LOC: HO.LAB 11:07
PROVIDERS: PCP General Practice; Visit Provider Psychiatry & Neurology Psychiatry
DX: E87.1 Hypo-osmolality and hyponatremia (principal)
CPT/HCPCS: 36415; 80048; 82550; 85025

== ENCOUNTER 2024-04-14 12:18 | Outpatient (REF) | payer OTHER, SELFPAY ==
[2024-04-14 12:48] LABS: MANUAL DIFF FLAG NO
[2024-04-14 13:56] LABS: Basophils Percent Auto 0.5 % (0-2); Eosinophils Absolute Auto 0.1 X10*3/uL (0.0-0.4); Eosinophils Percent Auto 1.4 % (0-4); Hematocrit 29.6 % (37.0-47.0); Hemoglobin 9.4 g/dl (12.0-16.0); Imm Gran Abs Auto 0.04 X10*3/uL (0.00-0.03); Imm Gran Pct Auto 0.6 % (0.0-0.4); Lymphocytes Absolute Auto 2.1 X10*3/uL (1.2-4.9); Lymphocytes Percent Auto 32.5 % (20-40); Mean Corpuscular HGB Conc 31.8 g/dl (31.0-35.0); Mean Corpuscular Hemoglobin 25.1 pg (27.0-33.0); Mean Corpuscular Volume 79.1 fL (80.0-98.0); Mean Platelet Volume 9.6 fL (9.4-12.3); Monocytes Absolute Auto 0.6 X10*3/uL (0.1-1.2); Monocytes Percent Auto 8.8 % (2-11); Neutrophils Absolute Auto 3.7 x10*3/uL (2.0-8.3); Neutrophils Percent Auto 56.2 % (45-73); Platelet Count 530 X10*3/uL (160-400); Red Blood Count 3.74 X10*6/uL (4.20-5.50); Red Cell Distribution Width 16.1 % (11.0-16.0); White Blood Count 6.5 X10*3/uL (4.8-10.8)
--- OUTSIDE RECORDS SUMMARY | 2024-04-14 14:04 | XMS_ITS | Encounter Summary ---
Author Organization [employer] Address [address] [place] [address] [address] [place] [address] Care Team Providers Care Paper Sales Manager Name Role Phone Maddie Kim MD Primary Care Provider [phone] Encounter Details Date Type Department Care Team (Late Contact Info) Description 01/27/[address] [facility] [address] [place] [phone] Maddie Kim MD [address] [place] [phone] Social History Tobacco Use Types Packs/Day Years [...] Department Care Team (Late Contact Info) Description 07/01/2024 11:[address] [facility] [address] [place] [phone] Maddie Kim MD [address] [place] [phone] documented as of this encounter Visit Diagnoses Not on filedocumented in this encounter Care Teams Paper Sales Manager Relationship Specialty Start Date End Date Maddie Kim MD [address] [place] [phone] PCP - General Family Medicine 07/12/20 Willie Gage 01/17/22 documented as of this encounter
--- OUTSIDE RECORDS SUMMARY | 2024-04-14 14:04 | XMS_ITS | Encounter Summary ---
Author Organization [employer] Address [address] [facility] 7[address] [place] [address] Care Team Providers Care Rail Project Engineer Name Role Phone Maddie Kim MD Primary Care Provider [phone] Encounter Details Date Type Department Care Team ([facility] st Contact Info) Description 05/15/2023 Orders Only [facility] [address] [place], [place] [phone] Maddie Kim MD [address] [place], [place] [phone] Social History Tobacco Use Types Packs/Day Years [...] is your housing situation today? I have salmoe cassidy 11/27/[address] you [...] Care Team (Late st Contact Info) Description 07/01/2024 11:30 AM EDT Telemedicine [facility] [address] [place] [address] [phone] Maddie Kim MD [address] [place] [address] [phone] documented as of this encounter Visit Diagnoses Not on filedocumented in this encounter Additional Health Concerns Assessment Noted Time PHQ-9 Depression Total Score: 0 05/30/19 23 3:26 PM EDT documented as of this encounter Care Teams Rail Project Engineer Relationship Specialty Start Date End Date Maddie Kim MD [address] [place] [address] [phone] PCP - General Family Medicine 07/12/20 Willie Gage 01/17/22 documented as of this encounter
--- OUTSIDE RECORDS SUMMARY | 2024-04-14 14:04 | XMS_ITS | Encounter Summary ---
Author Organization [employer] Address [address] [facility] 7t [place] [address] Care Team Providers Care Director Money Name Role Phone Maddie Kim MD Primary Care Provider [phone] Reason for Visit * Reason Onset Date Comments Nutrition Medication Question 05/30/2023 Encounter Details Date Type Department Care Team ([facility] Contact Info) Description 05/30/2023 Telephone [facility] [address] [place], [place] [phone] Maddie Kim MD [address] [place], [place] [phone] Nutrition Medication Question Social History Tobacco Use [...] EDT Telemedicine [facility]INE [address] [place] [address] Maddie Kim MD [address] [place] [address] documented as of this encounter Visit Diagnoses Not on filedocumented in this encounter Additional Health Concerns Assessment Noted Time PHQ-9 Depression Total Score: 0 05/30/19 23 3:26 PM EDT documented as of this encounter Care Teams Director Money Relationship Specialty Start Date End Date Maddie Kim MD [address] [place] [phone] PCP - General Family Medicine 07/12/20 Willie Gage 01/17/22 documented as of this encounter
--- OUTSIDE RECORDS SUMMARY | 2024-04-14 14:04 | XMS_ITS | Encounter Summary ---
Author Organization [employer] Address [address] [facility] [address]t [place] [address] Care Team Providers Care Automotive Lube Technician Name Role Phone Maddie Kim MD Primary Care Provider [phone] Encounter Details Date Type Department Care Team ([facility] st Contact Info) Description 07/29/2023 Orders Only [facility] [address] [place], [place] [phone] Maddie Kim MD [address] [place], [place] [phone] Social History Tobacco Use Types Packs/Day Years [...] Info) Description 07/01/2024 11:30 AM EDT Telemedicine [facility] MED[facility]INE [address] [place] [address] Maddie Kim MD [address] [place] [address] documented as of this encounter Visit Diagnoses Not on filedocumented in this encounter Additional Health Concerns Assessment Noted Time PHQ-9 Depression Total Score: 3 06/15/19 24 11:48 AM EDT documented as of this encounter Care Teams Automotive Lube Technician Relationship Specialty Start Date End Date Maddie Kim MD [address] [place] [address] PCP - General Family Medicine 07/12/20 Willie Gage 01/17/22 documented as of this encounter
--- OUTSIDE RECORDS SUMMARY | 2024-04-14 14:04 | XMS_ITS | Clinical Summary ---
Author Organization Unknown Care Team Providers Care Cigar Sorter Name Role Phone MARLON AHUMADA, JEAN-PIERRE Unavailable Unavailable ENRIQUE WEINSTEINW, WINNIE Unavailable Unavailable KATINA RN, ANASTACIA Unavailable Unavailable SMILEY RN, JENNI Unavailable Unavailable JAVIER RN, GABBY Unavailable Unavaila ble Payers Payer Name Policy Type Policy Number Effective Date Expira tion Date [facility] [id number] [place] [id number] MEDICARE - [facility] [place] - PD [id number] Problems Condition Name Condition Details Condition Category [...] 2020-02 00:00: 00 03-07 00:00 :00 No [id number] 10 mg 3 TIMES DAILY 10 mg 3 TIMES DAILY (route: oral) Med Classific ation: Locomotor System buprenorphi ne 4 mg-naloxone 1 mg sublingual film 2020-02 00:00: 00 04-05 00:00 :00 No [id number] Per instruc tions NEEDED Per instructio ns NEEDED (route: sublingual ) Med Classific ation: Chemical Dependenc y, Agents to Treat divalproex 250 mg tablet,kassandra yed release 2020-02 00:00: 00 04-05 23:59 :00 No [id number] 250 mg DAILY 250 mg DAILY (route: oral) Med Classific ation: Central Nervous System Agents divalproex ER 500 mg tablet,exte nded release 24 hr 2020-02 00:00: 00 04-05 00:00 :00 No [id number] 500 mg 2 TIMES DAILY 500 mg 2 TIMES DAILY (route: oral) Med Classific ation: Central Nervous System Agents ferrous sulfate 325 mg (65 mg iron) tablet 2020-02 00:00: 00 04-05 00:00 :00 No [id number] 1 tablet DAILY 1 tablet DAILY (route: oral) Med Classific ation: Electroly te Balance-N utritiona l Products Invega Sustenna 156 mg/mL intramuscul ar syringe 2020-02 00:00: 00 05-11 23:59 :00 No [id number] 156 mg MONTHLY 156 mg MONTHLY (route: intramuscu lar) Med Classific ation: Central Nervous System Agents levothyroxi ne 25 mcg tablet 2020-02 00:00: 00 03-05 23:59 :00 No [id number] 25 mcg DAILY 25 mcg DAILY (route: oral) Med Classific ation: Endocrine lisinopril 5 mg tablet 2020-02 00:00: 00 11-21 23:59 :00 No [id number] 5 mg DAILY 5 mg DAILY (route: oral) Med Classific ation: Cardiovas cular Therapy Agents nicotine (polacrilex ) 4 mg gum 2020-02 00:00: 00 09-12 23:59 :00 No [id number] 4 gum NEEDED 4 gum NEEDED (route: buccal) Med Classific ation: Chemical Dependenc y, Agents to Treat nicotine 21mg/24hr-1 4mg/24hr-7m g/24hr daily transderm patches,seq uentl 2020-02 00:00: 00 09-12 23:59 :00 No [id number] 21 patch NEEDED 21 patch NEEDED (route: transderma l) Med Classific ation: Chemical Dependenc y, Agents to Treat nystatin 500,000 unit tablet 2020-02 00:00: 00 04-05 00:00 :00 No [id number] In unit 4 TIMES DAILY [id number] In unit 4 TIMES DAILY (route: oral) Med Classific ation: Anti-Infe ctive Agents omeprazole 20 mg tablet,kassandra yed release 2020-02 00:00: 00 Yes [id number] 20 mg DAILY 20 mg DAILY (route: oral) Med Classific ation: Gastroint estinal Therapy Agents prazosin 5 mg capsule 2020-02 00:00: 00 02-14 23:59 :00 No [id number] 5 capsule BEDTIME 5 capsule BEDTIME (route: oral) Med Classific ation: Cardiovas cular Therapy Agents trazodone 50 mg tablet 2020-02 00:00: 00 01-17 23:59 :00 No [id number] 50 mg NEEDED 50 mg NEEDED (route: oral) Med Classific ation: Central Nervous System Agents albuterol sulfate HFA 90 mcg/actuati on aerosol inhaler 04-05 00:00: 00 Yes [id number] 2 puff NEEDED 2 puff NEEDED (route: inhalation ) Med Classific ation: Respirato ry Therapy Agents Aspercreme with Aloe 10 % topical 04-05 00:00: 00 09-12 23:59 :00 No [id number] Per instruc tions NEEDED Per instructio ns NEEDED (route: topical) Med Classific ation: Dermatolo gical cyclobenzap rine 5 mg tablet 04-05 00:00: 00 01-17 23:59 :00 No [id number] 5 mg NEEDED 5 mg NEEDED (route: oral) Med Classific ation: Locomotor System Depakote 500 mg tablet,kassandra yed release 04-05 00:00: 00 05-06 23:59 :00 No [id number] 1000 mg 2 TIMES DAILY 1000 mg 2 TIMES DAILY (route: oral) Med Classific ation: Central Nervous System Agents diphenhydra mine 25 mg capsule 04-05 00:00: 00 06-01 23:59 :00 No [id number] 50 mg NEEDED 50 mg NEEDED (route: oral) Med Classific ation: Respirato ry Therapy Agents hydroxyzine HCl 50 mg tablet 2-15 00:00: 00 06-01 23:59 :00 No [id number] 50 mg 3 TIMES DAILY 50 mg 3 TIMES DAILY (route: oral) Med Classific ation: Central Nervous System Agents naltrexone 50 mg tablet 2-15 00:00: 00 06-01 23:59 :00 No [id number] 50 mg DAILY 50 mg DAILY (route: oral) Med Classific ation: Antidotes and other Reversal Agents Narcan 4 mg/actuatio n nasal spray 2-15 00:00: 00 06-01 23:59 :00 No [id number] Per instruc tions NEEDED Per instructio ns NEEDED (route: nasal) Med Classific ation: Antidotes and other Reversal Agents pyridoxine (vitamin B6) 25 mg tablet 2-15 00:00: 00 06-01 23:59 :00 No [id number] 25 mg DAILY 25 mg DAILY (route: oral) Med Classific ation: Electroly te Balance-N utritiona l Products Invega Sustenna 234 mg/1.5 mL intramuscul ar syringe 3-24 00:00: 00 Yes [id number] Per instruc tions MONTHLY Per instructio ns MONTHLY (route: intramuscu lar) Med Classific ation: Central Nervous System Agents Invega Sustenna 234 mg/1.5 mL intramuscul ar syringe 8-14 00:00: 00 11-30 23:59 :00 No [id number] 234 mg MONTHLY 234 mg MONTHLY (route: intramuscu lar) Med Classific ation: Central Nervous System Agents Celebrex 200 mg capsule 2021-02 0-26 00:00: 00 03-20 23:59 :00 No [id number] 200 mg 2 TIMES DAILY 200 mg 2 TIMES DAILY (route: oral) Alternate Route: NONE. Med Classific ation: Analgesic , Anti-infl ammatory or Antipyret ic Celebrex 200 mg capsule 1-30 00:00: 00 01-10 23:59 :00 No [id number] 200 mg DAILY 200 mg DAILY (route: oral) Alternate Route: NONE. Med Classific ation: Analgesic , Anti-infl ammatory or Antipyret ic docusate sodium 100 mg capsule 30 00:00: 00 01-29 23:59 :00 No [id number] 1 capsule 2 TIMES DAILY 1 capsule 2 TIMES DAILY (route: oral) Alternate Route: NONE. Med Classific ation: Gastroint estinal Therapy Agents Eliquis 2.5 mg tablet 30 00:00: 00 09-12 23:59 :00 No [id number] 1 tablet 2 TIMES DAILY 1 tablet 2 TIMES DAILY (route: oral) Med Classific ation: Hematolog ical Agents oxycodone 5 mg tablet 03-20 00:00: 00 04-18 23:59 :00 No [id number] Per instruc tions DIRECTED Per instructio ns DIRECTED (route: oral) Alternate Route: NONE. Med Classific ation: Analgesic , Anti-infl ammatory or Antipyret ic tramadol 50 mg tablet 03-20 00:00: 00 04-18 23:59 :00 No [id number] Per instruc tions DIRECTED Per instructio ns DIRECTED (route: oral) Med Classific ation: Analgesic , Anti-infl ammatory or Antipyret ic gabapentin 300 mg capsule 3-29 00:00: 00 01-10 23:59 :00 No [id number] 1 capsule 3 TIMES DAILY 1 capsule 3 TIMES DAILY (route: oral) Med Classific ation: Central Nervous System Agents cyclobenzap rine 5 mg tablet 7-27 00:00: 00 01-10 23:59 :00 No [id number] 1 tablet 3 TIMES DAILY 1 tablet 3 TIMES DAILY (route: oral) Med Classific ation: Locomotor System baclofen 10 mg tablet 2022-02 1-24 00:00: 00 03-30 23:59 :00 No [id number] 1 tablet DIRECTED 1 tablet DIRECTED (route: oral) Med Classific ation: Locomotor System docusate sodium 100 mg capsule 2022-02 00:00: 00 Yes [id number] 1 capsule NEEDED 1 capsule NEEDED (route: oral) Med Classific ation: Gastroint estinal Therapy Agents acetaminoph en 300 mg-codeine 30 mg tablet 2-09 00:00: 00 05-15 23:59 :00 No [id number] 1 tablet 3 TIMES DAILY 1 tablet 3 TIMES DAILY (route: oral) Med Classific ation: Analgesic , Anti-infl ammatory or Antipyret ic Paxlovid 300 mg (150 mg x 2)-100 mg tablets in a dose pack 09 00:00: 00 04-03 23:59 :00 No [id number] 3 tablet 2 TIMES DAILY 3 tablet 2 TIMES DAILY (route: oral) Med Classific ation: Anti-Infe ctive Agents tizanidine 4 mg tablet 03-30 00:00: 00 01-03 23:59 :00 No [id number] 1 tablet 3 TIMES DAILY 1 tablet 3 TIMES DAILY (route: oral) Med Classific ation: Locomotor System Depakote 500 mg tablet,kassandra yed release 3-23 00:00: 00 03-31 23:59 :00 No [id number] 1000 mg 2 TIMES DAILY 1000 mg 2 TIMES DAILY (route: oral) Med Classific ation: Central Nervous System Agents multivitami n tablet 15 00:00: 00 Yes [id number] 1 tablet DIRECTED 1 tablet DIRECTED (route: oral) Med Classific ation: Electroly te Balance-N utritiona l Products gabapentin 300 mg capsule 07-10 00:00: 00 Yes [id number] 2 capsule 3 TIMES DAILY 2 capsule 3 TIMES DAILY (route: oral) Med Classific ation: Central Nervous System Agents paliperidon e ER 1.5 mg tablet,exte nded release 24 hr 07-10 00:00: 00 11-22 23:59 :00 No [id number] 1 tablet DAILY 1 tablet DAILY (route: [...] Genitouri nary Therapy clonazepam 0.5 mg tablet 14 00:00: 00 04-09 23:59 :00 No 1 tablet DAILY 1 tablet DAILY (route: oral) Med Classific ation: Central Nervous System Agents propranolol 10 mg tablet 04-04 00:00: 00 Yes 1-2 tablet 3 TIMES DAILY 1-2 tablet 3 TIMES DAILY (route: oral) Med Classific ation: Cardiovas cular Therapy Agents ferrous gluconate 324 mg (37.5 mg iron) tablet 04-10 00:00: 00 Yes 1 tablet DIRECTED 1 tablet DIRECTED (route: oral) Med Classific ation: Electroly te Balance-N utritiona l Products HYDROCODONE -ACETAMINOP HEN ORAL 10-07 00:00: 00 10-12 00:00 :00 No 5-325 [...] Med Classific ation: ENDOCRINE LEVOTHYROXI NE ORAL 8 00:00: 00 10-12 00:00 :00 No 25 [...] CENTRAL NERVOUS SYSTEM AGENTS OLANZAPINE ORAL 2017-02 205 00:00: 00 02-22 00:00 :00 No 15 [...] ation: GASTROINT ESTINAL THERAPY AGENTS OMEPRAZOLE ORAL 604 00:00: 00 08-22 00:00 :00 No 40 [...] ESTINAL THERAPY AGENTS OMEPRAZOLE ORAL 1-16 00:00: 03-20 00:00 :00 No 20 mg1 C [...] BALANCE-N UTRITIONA L PRODUCTS FERROUS SULFATE ORAL 09-18 00:00: 00 10-18 00:00 :00 No 325 mg (65 mg iron)1 TABLET THREE TIMES A DAY 325 mg (65 mg iron)1 TABLET THREE TIMES A DAY (route: ) Alternate Route: BY MOUTH . Med Classific ation: ELECTROLY TE BALANCE-N UTRITIONA L PRODUCTS FERROUS SULFATE ORAL 07-23 00:00: 08-22 00:00 :00 No 325 mg (65 mg iron)ON E TABLET 3 TIMES DAILY 325 mg (65 mg iron)ONE TABLET 3 TIMES DAILY (route: ) Alternate Route: (325MG) BY MOUTH . Med Classific ation: ELECTROLY TE BALANCE-N UTRITIONA L PRODUCTS TRAMADOL ORAL 2018-02 007 00:00: 00 11-28 00:00 :00 No 50 [...] CENTRAL NERVOUS SYSTEM AGENTS QUETIAPINE ORAL 2019-0 1-16 00:00: 00 03-20 00:00 :00 No 400 mg1 T EVERY NIGHT AT BEDTIME 400 mg1 T EVERY NIGHT AT BEDTIME (route: ) Alternate Route: PO . Med Classific ation: CENTRAL NERVOUS SYSTEM AGENTS QUETIAPINE ORAL 0 1-03 00:00: 00 03-07 00:00 :00 No 400 mg 400 mg (route: ) Med Classific ation: CENTRAL NERVOUS SYSTEM AGENTS LOPERAMIDE ORAL 1 0-04 00:00: 00 12-02 00:00 :00 No 2 mg ONCE DAILY NEEDED 2 mg ONCE DAILY NEEDED (route: ) Alternate Route: BY MOUTH . Med Classific ation: GASTROINT ESTINAL THERAPY AGENTS IBUPROFEN ORAL 0 6-08 00:00: 00 07-30 00:00 :00 No [...] NERVOUS SYSTEM AGENTS LITHIUM CARBONATE ORAL 0 9-30 00:00: 00 12-18 00:00 :00 No [...] NERVOUS SYSTEM AGENTS DOK ORAL 9-20 00:00: 12-08 00:00 :00 No 100 mg1 CAPSULE TWICE A DAY 100 mg1 CAPSULE TWICE A DAY (route: ) Alternate Route: BY MOUTH . Med Classific ation: GASTROINT ESTINAL THERAPY AGENTS DIVALPROEX ORAL 7-31 00:00: 10-18 00:00 :00 No 500 mg2 TABLETS [...] ) Med Classific ation: ENDOCRINE PREDNISONE ORAL 0 6-08 00:00: 00 08-04 00:00 :00 No 10 mg 10 mg (route: ) Med Classific ation: ENDOCRINE BANOPHEN ORAL 7-31 00:00: 00 10-18 00:00 :00 No 50 mgONE CAPSULE AT BEDTIME NEEDED 50 mgONE CAPSULE AT BEDTIME NEEDED (route: ) Alternate Route: BY MOUTH . Med Classific ation: RESPIRATO RY THERAPY AGENTS RISPERIDONE ORAL 2018-02 0-16 00:00: 00 01-03 00:00 :00 No 3 mg1 TABLET EVERYDAY AT BEDTIME 3 mg1 TABLET EVERYDAY AT BEDTIME (route: ) Alternate Route: BY MOUTH . Med Classific ation: CENTRAL NERVOUS SYSTEM AGENTS RISPERIDONE ORAL 8-10 00:00: 00 10-12 00:00 :00 [...] CENTRAL NERVOUS SYSTEM AGENTS HYDROXYZINE PAMOATE ORAL 2019-0 4-20 00:00: 00 06-18 00:00 :00 No [...] SYSTEM AGENTS BACLOFEN ORAL 0 8-10 00:00: 09-30 00:00 :00 No 10 [...] ation: CENTRAL NERVOUS SYSTEM AGENTS BENZTROPINE ORAL 0 5-10 00:00: 00 07-13 00:00 :00 No 0.5 mg 0.5 mg (route: ) Med Classific ation: CENTRAL NERVOUS SYSTEM AGENTS BENZTROPINE ORAL 0 1-03 00:00: 00 03-07 00:00 [...] Med Classific ation: LOCOMOTOR SYSTEM PRAZOSIN ORAL 0 7-31 00:00: 00 10-18 00:00 :00 No 1 mgONE CAPSULE AT BEDTIME 1 mgONE CAPSULE AT BEDTIME (route: ) Alternate Route: BY MOUTH . Med Classific ation: CARDIOVAS CULAR THERAPY AGENTS CYCLOBENZAP RINE ORAL 5-10 00:00: 07-08 00:00 :00 No 10 mg 10 [...] ation: CENTRAL NERVOUS SYSTEM AGENTS TRAZODONE ORAL 7-22 00:00: 00 09-23 00:00 :00 No 100 mg 100 mg (route: ) Med Classific ation: CENTRAL NERVOUS SYSTEM AGENTS TRAZODONE ORAL 5-10 00:00: 00 07-13 00:00 :00 [...] CARDIOVAS CULAR THERAPY AGENTS CLINDAMYCIN HCL ORAL 4-11 00:00: 00 06-06 00:00 :00 No [...] NERVOUS SYSTEM AGENTS TOPIRAMATE ORAL 6-04 00:00: 00 08-22 00:00 :00 [...] THERAPY AGENTS PANTOPRAZOL E ORAL 7-31 00:00: 10-18 00:00 :00 No 40 mg1 TABLET EVERY DAY 40 mg1 TABLET EVERY DAY (route: ) Alternate Route: BY MOUTH . Med Classific ation: GASTROINT ESTINAL THERAPY AGENTS ANTI-DIARRH EAL (LOPERAMIDE ) ORAL 17 00:00: 00 07-15 00:00 :00 No 2 mg ONCE DAILY NEEDED 2 mg ONCE DAILY NEEDED (route: ) Alternate Route: BY MOUTH . Med Classific ation: GASTROINT ESTINAL THERAPY AGENTS DAILY VALUE ORAL 09-18 00:00: 10-18 00:00 :00 No 1 TABLET EVERY [...] [degF] Temperature 2024-03-10 12:06:00.000 98 [degF] Pulse 2024-04-10 12:04:00.000 80 /min Pulse 2024-04-07 09:18:00.000 92 /min Pulse 2024-04-03 10:37:00.000 96 /min Pulse 2024-03-28 11:37:00.000 90 /min Pulse 2024-03-24 10:57:00.000 88 /min Pulse 2024-03-17 12:25:00.000 80 /min Pulse 2024-03-10 12:06:00.000 75 /min O2 Saturation (%) 2024-04-03 10:30:00.000 97 % Respirations 2024-04-10 12:03:00.000 16 /min Respirations 2024-04-07 09:18:00.000 16 /min Respirations 2024-04-03 10:30:00.000 16 /min Respirations 2024-03-28 11:37:00.000 16 /min Respirations 2024-03-24 10:57:00.000 16 /min Respirations 2024-03-17 12:27:00.000 16 /min Respirations 2024-03-10 12:06:00.000 16 /min Systolic Blood Pressure 2024-04-10 12:03:00.000 128 mm [Hg] Systolic Blood Pressure 2024-04-07 09:18:00.000 106 mm [Hg] Systolic Blood Pressure 2024-04-03 10:23:00.000 106 mm [Hg] Systolic Blood Pressure 2024-03-28 11:37:00.000 110 mm [Hg] Systolic Blood Pressure 2024-03-24 10:57:00.000 110 mm [Hg] Systolic Blood Pressure 2024-03-17 12:27:00.000 132 mm [Hg] Systolic Blood Pressure 2024-03-14 11:20:00.000 140 mm [Hg] Systolic Blood Pressure 2024-03-10 12:06:00.000 110 mm [Hg] Diastolic Blood Pressure 2024-04-10 12:03:00.000 86 mm [Hg] Diastolic Blood Pressure 2024-04-07 09:18:00.000 [...] AWARENESS FOR SAFETY AND WILL NOTIFY CLINICAL SYSTEM SUPPORT DEVELOPER AND PHYSICIAN/PROVIDER WITH ANY CHANGE IN CONDITION. [code = SKILLED NURSE WILL MAINTAIN SITUATIONAL AWARENESS FOR SAFETY AND WILL NOTIFY CLINICAL SYSTEM SUPPORT DEVELOPER AND PHYSICIAN/PROVIDER WITH ANY CHANGE IN CONDITION.] [...] REDUCE AVOIDABLE HOSPITALIZATION AND ED USE.] Goal Patient Goal - TO BE MED ADH ERENT Goal 2024-03-03 Patient Goal - TO BE MED ADH ERENT Goal 2024-01-04 Patient Goal - NOT DRINK Goal 2023-11-05 Patient Goal - S ARIES SOBER, EAT HEALTHY, LOSE WEIGHT-230 LB Goal 2023-09-07 Patient Goal - S ARIES SOBER, EAT HEALTHY, GO BACK TO WORK, LOSE WEIGHT Goal 2023-07-06 Patient Goal - G O TO THE GYM AT LEAST 2X WEEK, STAY SOBER Goal 2023-05-07 Patient Goal - G O [...] Notes <paragraph>[Visit Date: 2024 by GABBY HERRERA RN]:</paragraph><paragraph>SN PICKED UP CYCLOBENZAPRINE, MINOXIDIL, OMEPRAZOLE AND FERROUS GLUCONATE FROM THE PHARMACY FOR PATIENT. GABAPENTIN HAS NO REFILLS. PATIENT IS GOING TO HER OUTPATIENT PARTIAL HOSPITALIZATION PROGRAM TOMORROW AND SN INSTRUCTED PATIENT TO HAVE THE DOCTOR SEND A NEW PRESCRIPTION TO THE PHARMACY. ALSO INSTRUCTED PATIENT TO REQUEST REFILLS ON SEROQUEL AND PROPRANOLOL IF PATIENT IS GOING TO CONTINUE ON THOSE MEDS. PATIENT STATES SHE WILL SILK SCREEN PROCESSOR MEDS FROM THE PHARMACY BEFORE NEXT SN VISIT ON SUNDAY. GABAPENTIN PREFILLED THROUGH SUNDAY AFTERNOON. ALL OTHER AVAILABLE MEDICATIONS PREFILLED THROUGH SUNDAY MORNING. PT REPORTS COMPLIANCE WITH TAKING PREFILLED MEDS, APPEARS COMPLIANT PILL ORGANIZER EMPTY APPROPRIATELY. PATIENT IS ALERT AND ORIENTED X3. PATIENT IS CALM AND COOPERATIVE. PT DENIES DRINKING ALCOHOL OR SMOKING MARIJUANA IN OVER A WEEK. PT DENIES SI/HI. CRISIS PLAN IS IN PLACE. MEDICATION LOCKBOXES ARE SECURE.</paragraph> Encounters Start Date/Time End Date/Time Encounter Type Admission Type Attending Clinicians Care Facility Care Department Encounter ID Discharge Date Discharge Status Discharge Condition Discharge Reason Percent Goals Met 2022-01-17 00:00:00 2024-05-05 00:00:00 Outpatient RECERTIFIC GABBY BAUTISTA [facility] [id number]
--- OUTSIDE RECORDS SUMMARY | 2024-04-14 14:04 | XMS_ITS | Data Portability ---
Author Organization [employer] [place] [employer] [place] Address [address] [place] [address] Care Team Providers Care Signs Cleaner Name Role Phone HIM CCA OTHER [facility] OTHER [phone] Assessment Encounter Date Assessment Date Assessment LastModified by Organization Details LastModified Time 02/23/2024 02/23/2024 I provided real -time medical direction via phone for this encounter and was available for additional phone-based assistance as needed. I have reviewed and agree with the Assessment and Plan as documented by the Manager Diversity. Patient given the opportunity to ask questions. [...] The patient is now voiding normally. Per industrial service technician on the scene the patient has stable vitals and is afebrile currently after taking Tylenol. Known UTI and would continue to take the antibiotic prescribed as well as Tylenol. Discussed red flags. Medic request urine culture sent to [facility]. Allergies: Reviewed Not available 02/23/2024 16:20:42 02/26/2024 02/26/2024 I have reviewed and agree with the assessment and plan as documented by the industrial service technician. I provided real-time medical direction for this encounter and was immediately available to provide additional phone-based assistance as needed. History as noted in EMR and by industrial service technician. I would add / emphasize: Patient seen [...] recorded. Lab urinalysis , dipstick 2024 025 [facility], [address] [place] [address], [id number], 16:34:28 culture, urine 2024 025 SABIHA [facility] (Centralized Electronic Ordering - All Locations), Patient Can Go To The Location Of Their Choice, [address] 20:06:10 culture, urine 2024 025 S[facility]HA [facility] (Centralized Electronic Ordering - All Locations), Patient Can Go To The Location Of Their Choice, [address] 5 08:07:59 rapid flu (A+B) 2024 025 [facility], [address] [place] [address], [id number], 5 08:13:58 rapid SARS CoV 2 Ag, QL IA, respirator y specimen 2024 025 [facility], [address] [place] [address], [address], 5 08:13:39 culture, urine 2024 025 [facility], [address], Mohinder B, [place], [address], 04:41:56 culture, urine 2024 025 [email or web address] [facility] (Centralized Electronic Ordering - All Locations), Patient Can Go To The Location Of Their Choice, [address] 15:02:19 urinalysis , dipstick 2024 025 [facility], [address] [place] [address], [address], 07:58:13 Referral None recorded. Procedures None recorded. Surgeries None recorded. Imaging None recorded. Medication Orders Macrobid 100 mg capsule 2024 025 [facility]/Pharmacy #1026, [address] [place], [address], 5 21:48:16 Macrobid 100 mg capsule 2024 025 [facility]/Pharmacy #1026, [address] [place], [address], 5 22:18:22 Macrobid 100 mg capsule 2024 025 [facility]1026, [address] [place], [address], 5 21:49:28 phenazopyr idine 100 mg tablet 2024 025 [facility], [address] [place], [address], 5 21:48:19 Patient TargetsNo targets recorded. Patient InstructionsNo instructions recorded. Reason for Referral None Reported. Results Created Date Observation Date Name Description Value Unit Range Abnormal Flag Note LastModifiedBy Organization Detail LastModifiedTime 02/22/19 25 02/26/2024 CULTU RE, URINE , ROUTI NE culture, urine, routine SEE NOTE CULTU RE, URINE , ROUTI NE Micro Numbe r: [id number] Test Statu s: Final Speci men Sourc e: Urine Speci men Quali ty: Adequ ate Resul t: No Growt h Not Available [facility] [address] [place] [address], [place], [address], 02/26/2024 04:41:56 02/25/19 25 02/29/2024 URINE CULTU RE,CO MPREH ENSIV E urine culture,comp rehensive Final report Not Available [facility] ([facility]) [address] [facility], [place], [address], 02/29/2024 10:06:00 02/25/19 25 02/29/2024 URINE CULTU RE,CO MPREH ENSIV E result 1 COMMEN T No growt h in 36 - 48 hours . Not Available [facility] ([facility]) [address] [facility], [place], [address], 02/29/2024 10:06:00 03/23/19 25 03/24/2024 URINE CULTU RE, ROUTI NE urine culture, routine Final report Not Available [facility] ([facility]) [address] [place], [address], 03/24/2024 20:06:10 03/23/19 25 03/24/2024 URINE CULTU RE, ROUTI NE result 1 COMMEN T Cultu re shows less than 10,00 0 colon y formi ng units of bacte carter per angela liter of urine . This colon y count is not gener ally consi dered to be clini rubén signi fican t. Not Available [facility] ([facility]) [address] [facility], [place], [address], 03/24/2024 20:06:10 Result Notes None recorded. Medical Equipment None Reported. Allergies Allergen ID Allergen Name Allergen Category Reaction Reaction Severity Criticality Documentation Date Start Date Code Code System Note Provider Name and Address Organization Details Recorded Time 91038 Dilantin medicatio n Not available Not available Not available 02/22/2024 92542 0 RxNorm Not Available [facility] - production 14:48:20 42345 sulfameth oxazole medicatio n Not available Not available Not available 02/22/2024 29548 RxNorm Not Available [facility] - production 5 14:48:20 64572 trimethop rim medicatio n Not available Not available Not available 02/22/2024 32929 RxNorm Not Available [facility] - production 5 14:48:20 30803 Product containin g penicilli n (product) medicatio n Not available Not available Not available 02/22/2024 76827 8001 SNOMED Not Available [facility] - production 5 14:48:20 60164 penicilli n G benzathin e medicatio n Not available Not available Not available 02/22/2024 7982 RxNorm Not Available [facility] - production 5 14:48:20 39574 penicilli n G procaine medicatio n Not available Not available Not available 02/22/2024 7983 RxNorm Not Available [facility] - production 5 14:48:20 Medications Name Sig [...] 5 102 /min 98.8 [degF] 14 /min 847499. 08 g 98 % 98 % 130 [...] [degF] 157.48 cm 19 /min 96 /min 666222. 712 g 125 mm[Hg] 82 mm[Hg] Not [...] SNOMED-CT Code Diagnosis ICD10 Code Diagnosis Note [id number] ARIEL YAO MD Main - [facility] [address] [place] [address] 02/22/2024 21:29:01 02/23/2024 18:48:12 Urinary symptoms [id number] R39.9 Evaluation in the field was performed by my industrial service technician colleague, as noted above, I provided real-time [...] first dose was administer ed by the industrial service technician. -To alleviate the burning sensation, a prescripti [...] or flank pain or any other concerns. [id number] Fawn Coelho MD Main - [facility] [address] [place] [address] 02/23/2024 14:34:12 02/23/2024 18:56:04 Urinary symptoms [id number] R39.9 [id number] Aramis Gallardo MD Main - [facility] [address] [place] [address] 02/26/2024 11:22:16 02/28/2024 11:56:29 Urinary symptoms 300991117 R39.9 Fever [id number] R50.9 [id number] Jessica Hadley MD Main - [facility] [address] [place] [address] 03/23/2024 13:03:05 03/25/2024 16:45:46 Urinary symptoms 021091901 R39.9 As noted, we were called to see this patient regarding concerns of urinary symptoms. Evaluation in the field was performed by my industrial service technician colleague, as noted above, I provided real-time [...] changes to consciousn ess, chest pain, dypsnea. [id number] [facility] [address] [phone] 04/01/2024 18:50:28 04/01/2024 19:49:17 Low back pain [id number] M54.50 48 year old female with a [...] of the lower extremitie s. Prior to [facility]'s visit she took an excedrin which is helping bring the paind own. Exam notable for normal vital signs, neurologic exam is grossly normal. Presentati on consistent with acute on chronic lumbar radiculopa thy, no red flags noted. I have reviewed and agree with the assessment and plan as documented by the industrial service technician. I provided real-time medical direction for this [...] Fernandez Member ID Guarantor Name 02/22/2024 1 [facility] DOS ON OR AFTER 2022 - DUAL ELIGIBLE - SKILLED NURSING OPTIONS AND ONE CARE (MEDICARE REPLACEMENT/ADV ANTAGE - HMO) Atiya Dotson [id number] Atiyaabisai Dotson 02/23/2024 1 [facility] - DOS ON OR AFTER 2022 - DUAL ELIGIBLE - SKILLED NURSING OPTIONS AND ONE CARE (MEDICARE REPLACEMENT/ADV ANTAGE - HMO) Atiya Dotson [id number] Atiyaabisai Dotson 02/26/2024 1 [facility] - DOS ON OR AFTER 2022 - DUAL ELIGIBLE - SKILLED NURSING OPTIONS AND ONE CARE (MEDICARE REPLACEMENT/ADV ANTAGE - HMO) Atiya Dotson [id number] Atiya Y Mauri 03/23/2024 1 [facility] - DOS ON OR AFTER 2022 - DUAL ELIGIBLE - SKILLED NURSING OPTIONS AND ONE CARE (MEDICARE REPLACEMENT/ADV ANTAGE - HMO) Atiya Dotson [id number] Atiya Y Mauri 04/01/2024 1 [facility] DOS ON OR AFTER 2022 - DUAL ELIGIBLE - SKILLED NURSING OPTIONS AND ONE CARE (MEDICARE REPLACEMENT/ADV ANTAGE - HMO) Atiya Dotson [id number] Atiya Dotson Notes Date Note Type Note [...] any additional information to process this visit. Manager Diversity Organization Information for [employer] Legal Name: [employer] Address: [address] [place] [address] Sharepoint Application Architect: Benjy Haile MD [place] No.: [id number] Manager Diversity POC Test Results from [employer] Urine Dipstick (21:31:12) Urine leukocytes: 125+++ LEXIE [...] ...................... ...................... ...................... ...................... ...................... ......... Manager Diversity Note From Summer Del Rio: Disp for [...] enough for a culture sample. Consulted with [facility] Dr. Yao. Dr. Yao confirmed UTI with urine dipstick results. Dr. Yao ordered 100mgs of Macrobid PO. Dr. Yao sent antibiotic and Pyridium to pharmacy. Dr. Yao advised patient to stop drinking caffeine and increase fluids as much as possible. Dr. Yao advised patient if UTI symptoms do not improved on antibiotic in one to two days, schedule another appointment with [facility] for urine culture. Patient understood. Patient administered 100mgs of macrobid PO. Patient educated on red flags/risk factors. All times approx.. ...................... ...................... ...................... ...................... ...................... ...................... ......... [facility] Consulted: Ariel Yao ...................... ...................... ...................... ...................... ...................... ...................... ......... Disposition: Lizette YAO MD [address] [facility],[address], [place], [address], [employer] 02/22/2024 22:29:56 02/23/2024 text/html CRC Nurse Triage [...] ...................... ...................... ...................... ...................... ...................... ......... Manager Diversity Note From Elias Garrison: Pt chief complaint today of fever/ uti symptoms going on for x 1 week. Pt was seen by [facility] personnel 1 day prior to her [facility] meeting today, urine dip was taken and positive for leukocytes and nitrates. [facility] medic was not able to acquire a [...] blurred vision. Pt has taken Tylenol before [facility] arrival for fever suppression.Nonneural focal exam, afebrile, vitals WNL, lungs are clear bilaterally. Benign abdominal assessment, no lower extremity edema noted. Pt is CAOX4 with GCS of 15. Urine culture acquired, no urine dip due to positivity yesterday.[facility] Fawn Coelho consultedPt informed, to continue taking her antibiotic which was prescribed prior to her [facility] visit today. Pt told to intake fluids and take 1 gram of Tylenol every 8 hours in a 24 hour period as needed for general aches and fever. Pt also educated on red flag S&S and informed to call emergency services if any present. ...................... ...................... ...................... ...................... ...................... ...................... ......... [facility] Consulted: Fawn Coelho ..Bob................... ...................... ...................... ...................... ...................... ...................... ......... Disposition: Lizette Fawn Coelho MD [address] [facility],[address], [place], [address], [place] Velez [employer] 02/23/2024 16:21:22 02/26/2024 text/html CRC Nurse Triage Notes (Tami Ambriz - RN): Chief Complaints: Common cold symptoms, Cough, Headache PMH: Bipolar Disorder, Gastroesophageal Reflux Disease (GERD), Hypertension PMH Reviewed at 02/26/2024 Allergies Reviewed at 02/26/2024: Comments: Patient called for lab follow up, [...] She would like to be evaluated. Manager Diversity Organization Information for Sandro Kear[employer] Legal Name: [facility] Address: [address] [place] [address], [place] [address], Sharepoint Application Architect: Jeff Bautista MD CLIA No.: [id number] Manager Diversity POC Test Results from [email or web address] Rapid COVID antigen (11:21:01) COVID: - Rapid influenza antigen (11:21:02) Flu: - ...................... ...................... ...................... ...................... ...................... ...................... ......... Manager Diversity Note From Sandro Kearney: This 48-year-old female [...] ......... [facility] Consulted: Aramis Gallardo ...................... ...................... ...................... ...................... ...................... ...................... ......... Disposition: Fulfilled Aramis Gallardo MD [address] [place] [address],[address], [place], [address], [employer] 02/28/2024 06:38:26 03/23/2024 text/html CRC Nurse Triage [...] (GERD), Hypertension PMH Reviewed at 03/23/2024 - : Allergies Reviewed at 03/23/2024: Comments: [employer] verified the Pt.'s name//address and phone number. [...] Tylenol for pain - Wellness visit requested Manager Diversity Organization Information for Sandro Kearney [employer] Legal Name: [facility] Address: [address] [place] [address] [place] [address], Sharepoint Application Architect: Jeff Bautista MD CLIA No.: [id number] Manager Diversity POC Test Results from Sandro Kearney - ALS Urine Dipstick (13:07:26) Urine leukocytes: trace LEXIE Urine nitrites: - NIT Urine urobilinogen: - URO Urine protein: - PRO Urine pH: 5.0 pH Urine blood: - BLO Urine specific gravity: 1.010 SG Urine ketones: - KET Urine bilirubin: - MARCEL Urine glucose: - GLU ...................... ...................... ...................... ...................... ...................... ...................... ......... Manager Diversity Note From Sandro Kearney: This 48-year-old female [...] [facility] Consulted: Jessica Haldey ...................... ...................... ...................... ...................... ...................... ...................... ......... Disposition: Fulfilled Jessica Hadley MD [address] [place] [address],[address] [facility], [place], [address], [employer] 03/23/2024 13:41:47 04/01/2024 text/html CRC Nurse Triage [...] ...................... ...................... ...................... ...................... ...................... ......... Manager Diversity Note From Inna Galvan: Sent to a [...] ......... [facility] Consulted: Alisia Aguirre ...................... ...................... ...................... ...................... ...................... ...................... ......... Disposition: Fulfilled Alisia Aguirre MD [address] [facility],[address], [place], [address], [place] - ARIELLE GARCIA 04/01/2024 19:22:50 OBGyn Episode No OBEpisode recorded.
--- OUTSIDE RECORDS SUMMARY | 2024-04-14 14:05 | XMS_ITS | Encounter Summary ---
Author Organization [employer] Address [address] [place] [address] [address] [place] [address] Care Team Providers Care Grocery Manager Name Role Phone Maddie Kim MD Primary Care Provider [phone] Reason for Visit * Reason Onset Date Comments c/b request 11/10/2022 Encounter Details Date Type Department Care Team ([facility] st Contact Info) Description 11/10/2022 Telephone [facility] [address] [place] [phone] Maddie Kim MD [address] [place], [place] [phone] c/b request Social History Tobacco Use Types [...] to medication reconciliation. Please contact justus at [phone] documented in this encounter Plan of Treatment Upcoming Encounters Date Type Department Care Team (Late st Contact Info) Description 07/01/2024 11:30 AM EDT Telemedicine [facility] [address] [place] [address] Maddie Kim MD [address] [place] [phone] documented as of this encounter Visit Diagnoses Diagnosis Gastroesophageal reflux disease without esophagitis Esophageal reflux documented in this encounter Additional Health Concerns Assessment Noted Time PHQ-9 Depression Total Score: 0 05/30/19 23 3:26 PM EDT documented as of this encounter Care Teams Grocery Manager Relationship Specialty Start Date End Date Maddie Kim MD [address] [place] [address] [phone] PCP - General Family Medicine 07/12/20 Willie Gage 01/17/22 documented as of this encounter
--- OUTSIDE RECORDS SUMMARY | 2024-04-14 14:05 | XMS_ITS | Encounter Summary ---
Author Organization [employer] Address [address] [facility] [address] [place] [address] Care Team Providers Care Concrete Vault Maker Name Role Phone Maddie Kim MD Primary Care Provider [phone] Reason for Visit * Reason Onset Date Comments Call Back Request 07/26/2023 Encounter Details Date Type Department Care Team ([facility] Contact Info) Description 07/26/2023 Telephone [facility] [address] [place] [address] Maddie Kim MD [address] [place], [place] [phone] Call Back Request Social History Tobacco Use [...] Miscellaneous Notes * Telephone Encounter - Kathie Mclena RN - 07/27/2023 9:31 AM EDT Tc returned to [place], questioning pt.'s risperidone inj rx on med list they received. Looking back in chart, this was discontinued after inpatient hosp in 2020 due to noncompliance with injections. This was the last time it was prescribed. [facility] is requesting this is taken off our med list for accuracy, thank you! * Telephone Encounter - Zach Carlson - 07/26/2023 4:12 PM EDT Tc from [place] with Willie Gage requesting a call back for a med reconciliation. Please contact Georgie at [phone]. documented in this encounter Plan of Treatment Upcoming Encounters Date Type Department Care Team (Late st Contact Info) Description 07/01/2024 11:30 AM EDT Telemedicine [facility] [address] [place] [address] Maddie Kim MD [address] [place], [place] [phone] documented as of this encounter Visit Diagnoses Not on filedocumented in this encounter Additional Health Concerns Assessment Noted Time PHQ-9 Depression Total Score: 3 06/15/19 24 11:48 AM EDT documented as of this encounter Care Teams Concrete Vault Maker Relationship Specialty Start Date End Date Maddie Kim MD [address] [place] [address] PCP - General Family Medicine 07/12/20 Willie Gage 01/17/22 documented as of this encounter
--- OUTSIDE RECORDS SUMMARY | 2024-04-14 14:05 | XMS_ITS | Encounter Summary ---
Author Organization [employer] Address [address] [place] [address] [address] [place] [address] Care Team Providers Care Sas Statistical Programmer Name Role Phone Maddie Kim MD Primary Care Provider [phone] Encounter Details Date Type Department Care Team ([facility] Contact Info) Description 04/11/2022 Abstract [facility] [address] [place] [address] [phone] Maddie Kim MD [address] [place] [address] [phone] Social History Tobacco Use Types Packs/Day Years [...] Info) Description 07/01/2024 11:30 AM EDT Telemedicine [facility] [address] [place] [address] [phone] Maddie Kim MD [address] [place] [address] [phone] documented as of this encounter Visit Diagnoses Not on filedocumented in this encounter Care Teams Sas Statistical Programmer Relationship Specialty Start Date End Date Maddie Kim MD [address] [place] [address] PCP - General Family Medicine 07/12/20 Willie Gage 01/17/22 documented as of this encounter
--- OUTSIDE RECORDS SUMMARY | 2024-04-14 14:05 | XMS_ITS | Encounter Summary ---
Author Organization [employer] Address [address] [place] [address] [address] [place] [address] Care Team Providers Care Want Ad Clerk Name Role Phone Maddie Kim MD Primary Care Provider [phone] Reason for Referral * Consultation (Routine) - Closed Specialty Diagnoses / Procedures Referred By Sindi mejia Referred To Contact Nutrition Diagnoses Class 2 severe obesity with serious comorbidity and body mass index (BMI) of 39.0 to 39.9 in adult, unspecified obesity type (CMS/HCC) Maddie Kim MD [address] [place] [phone] Phone: tel: fax: Referral ID Status Reason Start Date Expiration Date V isits Requested Visits Authorized [id number] Closed Consult and Treat 04/06/2023 04/05/2024 1 1 Encounter Details Date Type Department Care Team (Late st Contact Info) Description 04/06/2023 Orders Only [facility] [address] [place] [address] [phone] Maddie Kim MD [address] [place] [address] Class 2 severe obesity with serious comorbidity [...] Info) Description 07/01/2024 11:30 AM EDT Telemedicine [facility] [address] [place] [address] Maddie Kim MD [address] [place] [address] Scheduled Referrals Name Type Priority Associated Diagnoses [...] [facility] [place] ? [address] ?[place], [place] [address] ? Mammography Report ? Signed ? Patient: Isaias,Atiya ?MR#: [id number] ? : 1975 ?Acct:[id number] ? Age/Sex: 47 / F ?ADM Date: 05/04/23 ? Loc: HO.MAMMO ? Attending Dr: Maddie Kim MD ? Ordering Physician: Maddie Kim ?Results: 1Negative ? Date of Service: 05/04/23 ?Follow Up: 1 Year From Orig ?? inal Mammogram ? Procedure(s): MM tomosynthesis screening BI ?? Accession Number(s): [id number] ? cc: Maddie Kim ? EXAMINATION: ?? [...] 1503 ? DD/ 1602 ? TD/TT: ? Steward/Stewardess Smoke Room: ? Procedure Note John Paul, Zoya - 05/26/2023 [facility] [address] [place] [address] Mammography Report Signed Patient: Zain Esparza#: [id number] : 1975Acct:[id number] Age/Sex: 47 / FADM Date: 05/04/23 Loc: MICHA[facility] Attending Dr: Maddie Kim MD Ordering Physician: Jaja Kimults: 1Negative Date of Service: 05/04/23Follow Up: 1 Year From Orig inal Mammogram Procedure(s): tomosynthesis screening BI Accession Number(s): [id number] cc: Maddie Kim EXAMINATION: MM SCREENING DIGITAL [...] in OV> 05/26/23 1503 DD/ 1602 TD/TT: Steward/Stewardess Smoke Room: Maddie Kim MD IMG BI PROCEDURES Final [...] documented as of this encounter Care Teams Want Ad Clerk Relationship Specialty Start Date End Date Maddie Kim MD [address] [place] [phone] PCP - General Family Medicine 07/12/20 Willie Gage 01/17/22 documented as of this encounter
--- OUTSIDE RECORDS SUMMARY | 2024-04-14 14:05 | XMS_ITS | Encounter Summary ---
Author Organization [employer] Address [address] [place] [address] 7t [place] [address] Care Team Providers Care Building Analyst/Supervisor Name Role Phone Maddie Kim MD Primary Care Provider [phone] Encounter Details Date Type Department Care Team ([facility] Contact Info) Description 03/30/2022 Abstract [facility] MEDICINE [address] [place] [address] [phone] Maddie Kim MD [address] [place] [address] [phone] Social History Tobacco Use Types Packs/Day Years [...] 07/01/2024 11:30 AM EDT Telemedicine [facility] MEDICINE [address] [place] [address] [phone] Maddie Kim MD [address] [place] [address] [phone] documented as of this encounter Visit Diagnoses Not on filedocumented in this encounter Care Teams Building Analyst/Supervisor Relationship Specialty Start Date End Date Maddie Kim MD [address] [place] [address] PCP - General Family Medicine 07/12/20 Willie Gage 01/17/22 documented as of this encounter
--- OUTSIDE RECORDS SUMMARY | 2024-04-14 14:05 | XMS_ITS | Encounter Summary ---
Author Organization [employer] Address [address] [facility] 7t [place] [address] Care Team Providers Care Celebrity Manager Name Role Phone Maddie Kim MD Primary Care Provider [phone] Reason for Visit * Reason Onset Date Comments Call Back Request 03/31/2024 Encounter Details Date Type Department Care Team ([facility] Contact Info) Description 03/31/2024 Telephone [facility] MEDICINE [address] [place], [place] [phone] Maddie Kim MD [address] [place], [place] [phone] Call Back Request Social History Tobacco Use [...] 1:23 PM EST TC placed to patient [phone] in regards to below message. RN did attempt calling patient today(see [place] encounter). Patient accepted HDF appointment for 04/02/24 at 11am for HDF. Patient to f/u PRN. * Telephone Encounter - Elier Mckinley - 03/31/2024 12:58 PM EST Tc from pt stating that a nurse Lesvia called her to transfer call to red team , process description writer verify and there was no notes millstone cleaner she states that was placed. Pt then tells process description writer to tell nurse from red team to call her urgently. [phone] documented in this encounter Plan of Treatment Upcoming Encounters Date Type Department Care Team (Late st Contact Info) Description 07/01/2024 11:30 AM EDT Telemedicine [facility] MEDICINE [address] [place] [address] Maddie Kim MD [address] [place] [address] documented as of this encounter Visit Diagnoses Not on filedocumented in this encounter Additional Health Concerns Assessment Noted Time PHQ-9 Depression Total Score: 3 06/15/19 24 11:48 AM EDT documented as of this encounter Care Teams Celebrity Manager Relationship Specialty Start Date End Date Maddie Kim MD [address] [place] [phone] PCP - General Family Medicine 07/12/20 Willie Gage 01/17/22 documented as of this encounter
--- OUTSIDE RECORDS SUMMARY | 2024-04-14 14:05 | XMS_ITS | Encounter Summary ---
Author Organization [employer] Address [address] [facility] 7t [place] [address] Care Team Providers Care Experimental Preflight Mechanic Name Role Phone Maddie Kim MD Primary Care Provider [phone] Reason for Visit * Reason Onset Date Comments Durable Medical Equipment 03/16/2022 Encounter Details Date Type Department Care Team ([facility] st Contact Info) Description 03/16/2022 Telephone [facility] MEDICINE [address] [place], [place] [phone] Maddie Kim MD [address] [place], [place] [phone] Durable Medical Equipment Social History Tobacco Use [...] it can fax to her landlord at [phone]. She would like the script to be to the [facility], [address] [place] [address] If any concerns please contact pt at [phone] documented in this encounter Plan of Treatment Upcoming Encounters Date Type Department Care Team (Late st Contact Info) Description 07/01/2024 11:30 AM EDT Telemedicine [facility] MEDICINE [address] [place] [phone] Maddie Kim MD [address] [place] [phone] documented as of this encounter Visit Diagnoses Not on filedocumented in this encounter Care Teams Experimental Preflight Mechanic Relationship Specialty Start Date End Date Maddie Kim MD [address] [place] [phone] PCP - General Family Medicine 07/12/20 Willie Gage 01/17/22 documented as of this encounter
--- OUTSIDE RECORDS SUMMARY | 2024-04-14 14:05 | XMS_ITS | Encounter Summary ---
Author Organization [employer] Address [address] [facility] 7t [place] [address] Care Team Providers Care Yeast Distiller Name Role Phone Maddie Kim MD Primary Care Provider [phone] Encounter Details Date Type Department Care Team ([facility] st Contact Info) Description 01/02/2024 Orders Only [facility] MEDICINE [address] [place], [place] [phone] Maddie Kim MD [address] [place], [place] [phone] Social History Tobacco Use Types Packs/Day Years [...] Info) Description 07/01/2024 11:30 AM EDT Telemedicine [facility] MEDICINE [address] [place] [address] Maddie Kim MD [address] [place] [address] documented as of this encounter Visit Diagnoses Not on filedocumented in this encounter Additional Health Concerns Assessment Noted Time PHQ-9 Depression Total Score: 3 06/15/19 24 11:48 AM EDT documented as of this encounter Care Teams Yeast Distiller Relationship Specialty Start Date End Date Maddie Kim MD [address] [place] [address] PCP - General Family Medicine 07/12/20 Willie Gage 01/17/22 documented as of this encounter
--- OUTSIDE RECORDS SUMMARY | 2024-04-14 14:05 | XMS_ITS | Encounter Summary ---
Author Organization [employer] Address [address] [place] [address] 7t [place] [address] Care Team Providers Care Network Solutions Architect Name Role Phone Maddie Kim MD Primary Care Provider [phone] Encounter Details Date Type Department Care Team (Late Contact Info) Description 11/14/2022 Orders Only [facility] MEDICINE [address] [place] [address] [phone] Maddie Kim MD [address] [place] [address] [phone] Social History Tobacco Use Types Packs/Day Years [...] Info) Description 07/01/2024 11:30 AM EDT Telemedicine [facility] MEDICINE [address] [place] [phone] Maddie Kim MD [address] [place] [address] [phone] documented as of this encounter Visit Diagnoses Not on filedocumented in this encounter Additional Health Concerns Assessment Noted Time PHQ-9 Depression Total Score: 0 05/30/19 23 3:26 PM EDT documented as of this encounter Care Teams Network Solutions Architect Relationship Specialty Start Date End Date Maddie Kim MD [address] [place] [address] PCP - General Family Medicine 07/12/20 Willie Caring 01/17/22 documented as of this encounter
--- OUTSIDE RECORDS SUMMARY | 2024-04-14 14:05 | XMS_ITS | Encounter Summary ---
Author Organization [employer] Address [address] [facility] 7t [place] [address] Care Team Providers Care Insecticide Maker Name Role Phone Maddie Kim MD Primary Care Provider [phone] Encounter Details Date Type Department Care Team ([facility] st Contact Info) Description 02/22/2024 Orders Only [facility] MEDICINE [address] [place], [place] [phone] Maddie Kim MD [address] [place], [place] [phone] Social History Tobacco Use Types Packs/Day Years [...] EDT Telemedicine [facility] MEDICINE [address] [place] [address] Maddie Kim MD [address] [place] [address] documented as of this encounter Visit Diagnoses Not on filedocumented in this encounter Additional Health Concerns Assessment Noted Time PHQ-9 Depression Total Score: 3 06/15/19 24 11:48 AM EDT documented as of this encounter Care Teams Insecticide Maker Relationship Specialty Start Date End Date Maddie Kim MD [address] [place] [address] PCP - General Family Medicine 07/12/20 Willie Gage 01/17/22 documented as of this encounter
--- OUTSIDE RECORDS SUMMARY | 2024-04-14 14:05 | XMS_ITS | Encounter Summary ---
Author Organization [employer] Address [address] [place] [address] 7t [place] [address] Care Team Providers Care Sand Caster Name Role Phone Maddie Kim MD Primary Care Provider [phone] Reason for Referral * Consultation (Routine) - Authorized Specialty Diagnoses / Procedures Referred By Sindi mejia Referred To Contact Cardiology Diagnoses Tachycardia Maddie Kim MD [address] [place] [phone] Phone: tel: fax: [facility] Referral ID Status Reason Start Date Expiration Date Visits Requested Visits Authorized [id number] Authorized Specialty Services Required 04/07/2024 04/07/2025 1 1 Reason for Visit * Reason Comments Follow-up Encounter Details Date Type Department Care Team (Latest Contact Info) Description 04/02/2024 3:30 PM EST Office Visit [facility] MEDICINE [address] [place] [address] [phone] Maddie Kim MD [address] [place] [address] [phone] Schizoaffective disorder, bipolar type (CMS/HCC) (Primary Dx); [...] hospital discharge followup. Was recently hospitalized at [facility] for two days to replete sodium, with hyponatremia to 119 on hydrochlorothiazide and Invega, quetiapine. Acute Concerns: BP off hydrochlorothiazide is ok <140/90 regularly, though she just in the ER overnight for elevated BP and inappropriate tachycardia after emotional argument. Resolved with Ativan. Recheck BMP today shows ongoing hyponatremia of 132 Currently attending IOP from 9-1230 M-F at [facility], wants to go for few more weeks [...] Venous TSH reflex Free T4 1.46 uIU/mL 04/02/24 1810 CBC auto differential Collected: 04/02/241625 Final result [...] 04/02/2024 11:00 AM Maddie Kim MD MEDICINE [facility] 04/18/2024 9:[address] DIAB NUTR [facility] Hospital Course and Medication Reconciliation [facility] (03/25/24-03/27/24) Patient presented for evaluation of hypernatremia [...] daily Changed: none Discontinued: hydrochlorothiazide Preferred Pharmacy: [facility] [address] [facility] [address] [facility] [id number] Pharmacist Notes Discrepancies: No recent fill found for: Vit B12 (last filled 09/02/23, 90 ds), Folic acid (lf 10/11/23), thiamine (lf 10/11/23), calcium carb (no fill found) Immunizations The NMIS database was reconciled and patient is indicated [...] Social History Social History Narrative Lives in [place] Has daughter in the area who is [...] Rfl: Vivitrol injection, , Disp: , Rfl: Cymro Translation: Patient is bilingual and declines translation [...] Info) Description 07/01/2024 11:30 AM EDT Telemedicine [facility] MEDICINE [address] [place] [phone] Maddie Kim MD [address] [place] [address] Scheduled Referrals Name Type Priority [...] Blood Count 14.5(H) 4.8 - 10.8 X10*3/uL [facility] Red Blood Count 4.19(L) 4.20 - 5.50 X10*6/uL [facility] Hemoglobin 10.7(L) 12.0 - 16.0 g/dl [facility] Hematocrit 31.5(L) 37.0 - 47.0 % [facility] Mean Corpuscular Volume 75.2(L) 80.0 - 98.0 fL [facility] Mean Corpuscular Hemoglobin 25.5(L) 27.0 - 33.0 pg [facility] Mean Corpuscular HGB Conc 34.0 31.0 - 35.0 g/dl [facility] Red Cell Distribution Width 13.9 11.0 - 16.0 % [facility] Platelet Count 242 160 - 400 X10*3/uL [facility] Mean Platelet Volume 10.3 9.4 - 12.3 fL [facility] Neutrophils Percent Auto 88.6(H) 45 - 73 % [facility] Imm Gran Pct Auto 0.5(H) 0.0 - 0.4 % [facility] Lymphocytes Percent Auto 3.9(L) 20 - 40 % [facility] Monocytes Percent Auto 6.7 2 - 11 % [facility] Eosinophils Percent Auto 0.2 0 - 4 % [facility] Basophils Percent Auto 0.1 0 - 2 % [facility] NRBC Pct Auto 0.0 0.0 - 0.2 /100WBC [facility] Neutrophils Absolute Auto 12.8(H) 2.0 - 8.3 x10*3/uL [facility] Imm Gran Abs Auto 0.07(H) 0.00 - 0.03 X10*3/uL [facility] Lymphocytes Absolute Auto 0.6(L) 1.2 - 4.9 X10*3/uL [facility] Monocytes Absolute Auto 1.0 0.1 - 1.2 X10*3/uL [facility] Eosinophils Absolute Auto 0.0 0.0 - 0.4 X10*3/uL [facility] Basophils Absolute Auto 0.0 0.0 - 0.2 X10*3/uL [facility] NRBC Abs Auto 0.000 0.0 - 0.012 X10*3/uL [facility] Blood Venous blood specimen / Unknown 04/02/2024 4:26 PM EST 04/02/2024 5:31 PM EST Maddie Kim MD LAB BLOOD ORDERABLES Final Res ult Performing Organization Address [facility] de Phone Number [facility] [address] [place] [address] [phone] * TSH W/Reflex to FT4 (04/02/2024 4:26 PM EST) TSH reflex Free T4 1.46 0.32 - 4.0 uIU/mL [facility] Blood Venous blood specimen / Unknown 04/02/2024 4:26 PM EST 04/02/2024 5:31 PM EST Maddie Kim MD LAB BLOOD ORDERABLES Final Res ult Performing Organization Address [facility] Co de Phone Number [facility] [address] [place] [phone] documented in this encounter Visit Diagnoses [...] documented as of this encounter Care Teams Sand Caster Relationship Specialty Start Date End Date Maddie Kim MD [address] [place] [phone] PCP - General Family Medicine 07/12/20 Willie Gage 01/17/22 documented as of this encounter
--- OUTSIDE RECORDS SUMMARY | 2024-04-14 14:05 | XMS_ITS | Clinical Summary ---
Author Organization [employer] Address [address] [place] [address] 7[address] [place] [address] Care Team Providers Care Vascular Technologist Name Role Phone Maddie Kim MD Primary Care Provider [phone] Allergies Active Allergy Reactions Criticality Noted Date [...] daily. 1 kit 05/24/19 24 025 Active Vivitrol injection 06/13/19 24 Active Emollient (Minerin) lotion APPLY TOPICALLY 2-3 TIMES A DAY NEEDED FOR DRY SKIN 473 mL 4 09/07/19 24 Active albuterol 108 (90 Base) MCG/ACT inhaler Inhale 2 puffs every 6 (six) hours if needed for wheezing. 18 g 11 09/07/19 24 025 Active minoxidil (Loniten) 2.5 MG tablet Take 0.5 tablets by mouth Once per day. 08/24/19 24 Active celecoxib (CeleBREX) 200 MG capsule Take 200 mg by mouth Once per day. 11/06/19 24 Active lisinopril 40 MG tablet Take 1 tablet (40 mg) by mouth Once per day. 90 tablet 3 01/02/20 24 025 Active omeprazole (PriLOSEC) [address] capsule TAKE 1 CAPSULE BY MOUTH BEFORE BREAKFAST 90 capsule 3 02/15/20 24 Active docusate sodium (Colace) 100 MG capsule TAKE 1 CAPSULE BY MOUTH TWICE A DAY 180 capsule 1 03/04/19 25 Active gabapentin (Neurontin) 600 MG tablet Take [...] each day at the same time. Active psyllium (Hydrocil) 95 % packet Take 1 packet by mouth Once per day. Mix and drink with at least 8 ounces of water or juice. Active Tirzepatide-We ight Management (Zepbound) 2.5 MG/0.5ML solution auto-injector Inject 0.5 mL (2.5 mg) under the skin 1 (one) time per week. 2 mL 3 04/02/19 25 Active cyclobenzaprin e (Flexeril) 5 MG tablet Take 1 tablet (5 mg) by mouth if needed in the morning, at noon, and at bedtime for muscle spasms. TAKE 1 TABLET BY MOUTH THREE TIMES A DAY 90 tablet 04/09/19 25 Active ferrous gluconate (Fergon) 324 (38 Fe) MG tablet Take 1 tablet (324 mg) by mouth with breakfast. 90 tablet 3 04/14/19 25 Active Vraylar 1.5 MG capsule 04/11/19 25 Active clonazePAM (KlonoPIN) 0.5 MG tablet 04/04/19 25 Active propranolol (Inderal) 10 MG tablet 04/11/19 25 Active gabapentin (Neurontin) 300 MG capsuleIndicat ions:Chronic pain of both knees TAKE 1 CAPSULE BY MOUTH IN THE MORNING , AT NOON AND AT BEDTIME 90 capsule 3 08/01/19 23 025 Discontinued(Me d list cleanup (will not trigger notification to Pharmacy)) folic acid (Folvite) 1 MG tablet Take 1,000 mcg by mouth Once per day. 06/07/19 24 025 Discontinued( erapy completed) thiamine (Vitamin B-1) 50 MG tablet Take 50 mg by mouth Once per day. 06/07/19 24 025 Discontinued( erapy completed) Cyanocobalamin (Vitamin B-12) [address] 1 tablet under the tongue Once per day. 90 tablet 3 06/15/19 24 025 Discontinued(Me d list cleanup (will not trigger notification to Pharmacy)) ondansetron (Zofran) 4 MG tablet TAKE 1 TABLET BY MOUTH EVERY 8 HOURS NEEDED FOR NAUSEA OR FOR VOMITING FOR UP TO 7 DAYS 30 tablet 10/09/19 24 025 Discontinued( erapy completed) metFORMIN XR (Glucophage-XR ) 500 MG 24 hr tablet TAKE 2 TABLETS (1,000 MG) BY MOUTH WITH EVENING MEAL. DO NOT CRUSH, CHEW, OR SPLIT. 180 tablet 1 12/04/19 24 025 Discontinued( erapy completed) hydroCHLOROthi azide (HYDRODiuril) 25 MG tablet Take 1 tablet (25 mg) by mouth Once per day. 30 tablet 11 01/04/20 24 025 Discontinued(St op taking at discharge) cyclobenzaprin e (Flexeril) 10 MG tablet TAKE 1 TABLET BY MOUTH THREE TIMES A DAY 90 tablet 02/20/19 25 025 Discontinued calcium carbonate (Os-Casey) 1250 (500 Ca) MG chewable tabletIndicati ons:Acid Indigestion,Ga stroesophageal Reflux Disease Chew 1 tablet 2 times daily. 025 Discontinued(Th erapy completed) cyanocobalamin (Vitamin B-12) 500 MCG tablet Take 1 tablet by mouth Once per day. 09/02/19 24 025 Discontinued( erapy completed) sennosides (Senokot) 8.6 MG tablet Take 2 tablets by mouth Once per day. 025 Discontinued( erapy completed) nitrofurantoin (Macrodantin) 100 MG capsule 03/31/19 25 025 Discontinued( erapy completed) ferrous gluconate (Fergon) 324 (38 Fe) MG tablet Take 1 pill every Sunday, Sunday, and Sunday. Take with a full glass of water or Vit C containing juice, and ideally 1 hour before a meal or 2 hours after a meal 36 tablet 04/07/19 25 025 Discontinued(Re order (will not trigger notification to Pharmacy)) hydroCHLOROthi azide (HYDRODiuril) 25 MG tablet 04/07/19 25 025 Discontinued(Si de effects) Active Problems Problem Noted Date Diagnosed Date [...] (02/23/2023 8:52 AM EST): Will refer to [facility] hand surgeon History of gastrectomy 10/06/2022 Assessment & Plan (04/02/2024 4:07 PM EST): 2009 gastric sleeve Assessment & Plan (10/06/2022 7:52 AM EDT): Refer to [facility] weight loss program for discussion of [...] sleeve? I think discuss portion sizes with stockholder Assessment & Plan (01/29/2022 10:40 AM EST): [...] re-iterated that she can reach us through [employer] if she needs anything Assessment & Plan [...] Encounters Date Type Department Care Team Description 04/14/2024 Orders Only [facility] [address] [place] [address] [phone] Maddie Kim MD 04/10/2024 Telephone [facility] [address] [place] [address] [phone] Maddie Kim MD CRITICAL RESULT CALL 04/09/2024 Refill [facility] [place] [address] Maddie Kim MD 04/02/2024 3:30 PM EST Office Visit [facility] [place] [address] Maddie Kim MD Schizoaffective disorder, bipolar type (CMS/HCC) (Primary Dx); Opioid abuse (CMS/[facility]); Class 3 severe obesity with serious comorbidity and body mass index (BMI) of 40.0 to 44.9 in adult, unspecified obesity type (CMS/HCC); Dietary counseling; Exercise counseling; History of gastrectomy; Tachycardia 04/02/2024 Travel 04/02/2024 Telephone [facility] [address] [place] [address] 57256 Maddie Kim MD No Show 03/31/2024 Telephone [facility] [address] [place] [address] 33796 Maddie Kim MD Call Back Request 03/28/2024 Telephone [facility] [address] [place] [address] 16698 Maddie Kim MD FYI 03/28/2024 Patient Outreach [facility] [address] [place] [address] [phone] aMddie Kim MD Transition Of Care (Tcm) (HDF- Unscheduled- PATIENT REQ. A HDF WITHIN 7 DAYS AND ONLY WITH HER PCP) 03/28/2024 Telephone [facility] [address] [place] [address] 83696 Maddie Kim MD Hospital Follow-up 03/24/2024 Telephone [facility] [address] [place] [address] 22125 Maddie Kim MD 03/24/2024 Telephone [facility] [address] [place] [address] 70122 Sheila Rene, RN NTTS 03/20/2024 Telephone [facility] [address] [place] [address] NUTRITION APPT REQUEST 03/04/2024 Telephone [facility] [address] [place] [address] [phone] Maddie Kim MD verbal order 03/04/2024 Refill [facility] [address] [place] [address] 97195 Maddie Kim MD 02/22/2024 Telephone [facility] [address] [place] [address] 54102 Maddie Kim MD 02/22/2024 Orders Only [facility] [address] [facility] [place] [address] Maddie Kim MD 02/21/2024 Telephone [facility] [address] [facility] [place] [address] Maddie Kim MD FYI 02/21/2024 Refill [facility] [address] [facility] [place] [address] Maddie Kim MD 02/15/2024 Telephone [facility] [address] [place] [address] Maddie Kim MD FYI 02/15/2024 Refill [facility] [address] [place] [address] Maddie Kim MD 01/22/2024 Orders Only GENERIC EXTERNAL DATA DEPARTMENT Provider, Generic External Data from Last 3 Months Immunizations Name Administration Dates Next Due Influenza Injectable Quadriv alant Preservative Free IIV4 MDCK 01/01/2023 Influenza injectable quadriv alent preservative free 12/26/2021,01/01/2021,02/27/2020 Influenza, IIV3, injectable 01/05/2022,1 03/19/2015,10/13/2014,10/31,03/02/2011,11/01/2009 Influenza, Injectable, MDCK, preservative free 12/11/2023 Moderna Covid-19 Vaccine 12+ 08/26/2020,07/30/19 21 Pfizer [...] Info) Description 07/01/2024 11:30 AM EDT Telemedicine [facility] [address] [place] [address] Maddie Kim MD [address] [place] [address] Health Maintenance Due Date Last Done Comments [...] Free T4 1.46 0.32 - 4.0 uIU/mL [facility] Blood Venous blood specimen / Unknown 04/02/2024 4:26 PM EST 04/02/2024 5:31 PM EST us Maddie Kim MD LAB BLOOD ORDERABLES Final Res ult [facility] [address] [place] [phone] * (ABNORMAL) CBC auto differential (04/02/2024 4:26 PM EST) White Blood Count 14.5(H) 4.8 - 10.8 X10*3/uL [facility] Red Blood Count 4.19(L) 4.20 - 5.50 X10*6/uL [facility] Hemoglobin 10.7(L) 12.0 - 16.0 g/dl [facility] Hematocrit 31.5(L) 37.0 - 47.0 % [facility] Mean Corpuscular Volume 75.2(L) 80.0 - 98.0 fL [facility] Mean Corpuscular Hemoglobin 25.5(L) 27.0 - 33.0 pg [facility] Mean Corpuscular HGB Conc 34.0 31.0 - 35.0 g/dl [facility] Red Cell Distribution Width 13.9 11.0 - 16.0 % [facility] Platelet Count 242 160 - 400 X10*3/uL [facility] Mean Platelet Volume 10.3 9.4 - 12.3 fL [facility] Neutrophils Percent Auto 88.6(H) 45 - 73 % [facility] Imm Gran Pct Auto 0.5(H) 0.0 - 0.4 % [facility] Lymphocytes Percent Auto 3.9(L) 20 - 40 % [facility] Monocytes Percent Auto 6.7 2 - 11 % [facility] Eosinophils Percent Auto 0.2 0 - 4 % [facility] Basophils Percent Auto 0.1 0 - 2 % [facility] NRBC Pct Auto 0.0 0.0 - 0.2 /100WBC [facility] Neutrophils Absolute Auto 12.8(H) 2.0 - 8.3 x10*3/uL [facility] Imm Gran Abs Auto 0.07(H) 0.00 - 0.03 X10*3/uL [facility] Lymphocytes Absolute Auto 0.6(L) 1.2 - 4.9 X10*3/uL [facility] Monocytes Absolute Auto 1.0 0.1 - 1.2 X10*3/uL [facility] Eosinophils Absolute Auto 0.0 0.0 - 0.4 X10*3/uL [facility] Basophils Absolute Auto 0.0 0.0 - 0.2 X10*3/uL [facility] NRBC Abs Auto 0.000 0.0 - 0.012 X10*3/uL [facility] Blood Venous blood specimen / Unknown 04/02/2024 4:26 PM EST 04/02/2024 5:31 PM EST us Maddie Kim MD LAB BLOOD ORDERABLES Final Res ult [facility] [address] [place] [address] [phone] * (ABNORMAL) Basic Metabolic Panel (04/02/2024 4:26 PM EST) Sodium 132(L) 135 - 145 mmol/L [facility] Potassium 4.0 3.3 - 5.1 mmol/L [facility] Chloride 102 96 - 108 mmol/L [facility] Carbon Dioxide 24 22 - 29 mmol/L [facility] Anion Gap 10(L) 12 - 20 [facility] Urea Nitrogen (BUN) 12 9 - 16 mg/dL [facility] Creatinine, Serum 0.74 0.5 - 1.4 mg/dL [facility] Estimated Glomerular Filt Rate >60 [facility] Comment:Chronic Kidney Disea se: Estimated GFR < 60 mL/min/1.89r6Rhrnpr Kidney Disease: Estimated GFR < 15 mL/min/1.73m2 Glucose 72 60 - 115 mg/dL [facility] Calcium 8.9 8.4 - 10.2 mg/dL [facility] Blood Venous blood specimen / Unknown 04/02/2024 4:26 PM EST 04/02/2024 5:31 PM EST us Maddie Kim MD LAB BLOOD ORDERABLES Final Res ult [facility] [address] [place] [address] [phone] * Pap Smear (01/22/2024 8:03 AM EST) 01/22/2024 8:03 AM EST 01/23/2024 11:00 AM EST Narrative [facility] - 01/25/2024 12:58 PM EST ----- ------- Name: [place],Atiya ?Age/Sex: 48/F ? : 1975 Unit#: [id number] ?? Attend Dr: John Schmidt MD ?Re01/22/24 ?Status: DEP REF ? Location: HO.LNP ?Disch: ? ----- ------- SPEC : [id number] ?RECD: 01/23/24 ? STATUS: ??SOUT ? REQ NUM: [id number] ? MAMADOU: 01/22/24 ? SUBM DR: John [...] Copies To: ?? Maddie Kim ?? [address] ?? [place] [address] ?? [phone] ?? John Schmidt MD ?? [facility] ?? [address] ?? [place] [address] ?? [phone] ----- ------- Signed (signature on file) YASSINE Garcia ([facility]) 01/25/24 3958 ? ----- ------- ? END OF REPORT ? us Generic External Data Provider LAB CYTOLOGY NATANAELE ROBBIE Final Result [facility] [address] [facility] [place] [phone] [phone] * Lipid Panel, Standard (09/08/2023 8:43 AM EDT) Triglycerides 57 <150 mg/dL [facility] Comment:Desirable Triglyceri de: less than 150 mg/dLBorderline High Triglyceride 150-199 mg/dLHigh Triglyceride: 200-499 mg/dLVery High Triglyceride: greater than or equal to 5OO mg/dL Cholesterol 158 <200 mg/dL [facility] Comment:Desirable Cholestero l: less than 200 mg/dLBorderline High Cholesterol: 200-239 mg/dLHigh Cholesterol: greater than 239 mg/dL LDL Cholesterol Calculated 87 <100 mg/dL [facility] Comment:Desirable LDL: less than 100 [...] MD LAB BLOOD ORDERABLES Final Res ult [facility] [address] [place] [address] [phone] * BI Mammogram Screening Tomosynthesis Bilateral (05/04/2023 4:02 PM EDT) Anatomical Region Laterality Modality Breast Bilateral Mammography 05/04/2023 4:02 PM EDT Narrative 05/26/2023 3:06 PM EDT ? [facility] [place] ? [address] ?[place] [address] ? Mammography Report ? Signed ? Patient: Isaias,Atiya ?MR#: [id number] ? : 1975 ?Acct:[id number] ? Age/Sex: 47 / F ?ADM Date: 03/15/24 ? Loc: HO.MAMMO ? Attending Dr: Maddie Kim MD ? Ordering Physician: Maddie Kim ?Results: 1Negative ? Date of Service: 05/04/23 ?Follow Up: 1 Year From Orig ?? inal Mammogram ? Procedure(s): MM tomosynthesis screening BI ?? Accession Number(s): [id number] ? cc: Maddie Kim ? EXAMINATION: ?? [...] in OV> ? 05/26/23 1503 ? DD/ ? TD/TT: ? Carrier Washer: ? Procedure Note Donotuseinterpreter, Image - 05/26/2023 [facility] [address] [place], [place] [address] Mammography Report Signed Patient: Zain Esparza#: [id number] : 1975Acct:[id number] Age/Sex: 47 / FADM Date: 05/04/23 Loc: HO.MAMMO Attending Dr: Maddie Kim MD Ordering Physician: Jaja Kimults: 1Negative Date of Service: 05/04/23Follow Up: 1 Year From Orig inal Mammogram Procedure(s): MM tomosynthesis screening BI Accession Number(s): [id number] cc: Maddie Kim EXAMINATION: MM SCREENING DIGITAL [...] in OV> 05/26/23 1503 DD/ 1602 TD/TT: Carrier Washer: Maddie Kim MD IMG BI PROCEDURES Final Result * HPV GENOTYPES 16,18/45 (12/20/2020 12:00 AM EDT) HPV 16 RNA NOT DETECTED NOT DETECTED [facility] HPV 18/45 RNA NOT DETECTED NOT DETECTED [facility] Comment: Methodology: Stage Driver Mediated Amplification The analytical performance characteristics of this assay have been determined by [employer] The modifications have not been cleared or approved by the FDA. This assay has been validated pursuant to the CLIA regulations and is used for clinical purposes. 12/20/2020 Maddie Kim MD LAB BLOOD ORDERABLES Final Res ult [facility] [address] from Last 3 Months or Most Recently Relevant to Health Maintenance [place] [address] [place] [address] [employer] Care Teams Vascular Technologist Relationship Specialty Start Date End Date Maddie Kim MD [address] [place] [address] PCP - General Family Medicine 07/12/20 Willie Gage 01/17/22
--- OUTSIDE RECORDS SUMMARY | 2024-04-14 14:05 | XMS_ITS | Continuity of Care Document ---
Author Organization [facility] - [facility] Address [address] [place] [phone] Care Team Providers Care Dealer Support Technician Name Role Phone HIM [facility] OTHER [facility] OTHER Assessment No assessment recorded. Plan of Treatment Reminders Order Date Submit Date Provider Last Modified By Organization Details Last Modified Time Details Appointments None recorded. Lab urinalysis , dipstick 2024 025 [facility], [address] [place] [address], [phone], 16:34:28 culture, urine 2024 025 [facility] (Centralized Electronic Ordering - All Locations), Patient Can Go To The Location Of Their Choice, [address] 20:06:10 Referral None recorded. Procedures None recorded. [...] Name and Address Organization Details Recorded Time 17666 Dilantin medicatio n Not available Not available Not available 02/22/202438220 0 RxNorm Not Available [facility] - production 14:48:20 21110 sulfameth oxazole medicatio n Not available Not available Not available 02/22/2024 57121 RxNorm Not Available [facility] - production 14:48:20 53200 trimethop rim medicatio n Not available Not available Not available 02/22/2024 78333 RxNorm Not Available [facility] - production 14:48:20 81321 Product containin g penicilli n (product) medicatio n Not available Not available Not available 02/22/2024 03645 8001 SNOMED Not Available [facility] - production 14:48:20 55183 penicilli n G benzathin e medicatio n Not available Not available Not available 02/22/2024 7982 RxNorm Not Available [facility] - production 14:48:20 77747 penicilli n G procaine medicatio n Not available Not available Not available 02/22/2024 7983 RxNorm Not Available [facility] - production 14:48:20 Medications Name Sig Start [...] SNOMED-CT Code Diagnosis ICD10 Code Diagnosis Note [id number] KALYN YAO MD Main - [facility] [address] [place] [phone] 02/22/2024 21:29:01 02/23/2024 18:48:12 Urinary symptoms [id number] R39.9 Evaluation in the field was performed by my head of sales promotion colleague, as noted above, I provided real-time [...] for leukocytes , nitrites, blood, and ketones.Al kggiabelardo: Reviewed. Impression :UTI Plan:-UA findings are consistent with a UTI. Given the lack of systemic symptoms and CVA tenderness , the diagnosis is most likely simple cystitis.- Prescripti on for Macrobid 100 mg BID for 5 days sent to the patient's pharmacy. The first dose was administer ed by the head of sales promotion. -To alleviate the burning sensation, a prescripti [...] or flank pain or any other concerns. [id number] Fawn Coelho MD Main - [facility] [address] [place] [phone] 02/23/2024 14:34:12 02/23/2024 18:56:04 Urinary symptoms [id number] R39.9 [id number] Aramis Gallardo MD Main - [facility] [address] [place] [phone] 02/26/2024 11:22:16 02/28/2024 11:56:29 Urinary symptoms [id number] R39.9 Fever [id number] R50.9 [id number] Jessica Hadley MD Main - [facility] [address] [place] [phone] 03/23/2024 13:03:05 03/25/2024 16:45:46 Urinary symptoms [id number] R39.9 As noted, we were called to see this patient regarding concerns of urinary symptoms. Evaluation in the field was performed by my head of sales promotion colleague, as noted above, I provided real-time [...] Member ID Guarantor Name 03/23/2024 1 [facility] - DOS ON OR AFTER 2022 - DUAL ELIGIBLE - NURSING HOME OPTIONS AND ONE [employer] (MEDICARE REPLACEMENT/ADV ANTAGE - HMO) Atiya Dotson [id number] Atiya Dotson Notes Date Note Type Note [...] (GERD), Hypertension PMH Reviewed at 03/23/2024 - Allergies Reviewed at 03/23/2024 Comments: Ammonia Box Tender verified the Pt.'s name//address and phone number. [...] Tylenol for pain - Wellness visit requested Inspector Packer Organization Information for [facility] [employer] [facility] Name[facility] Address: [address] [place] [address], Vice President Of Human Resources: Jeff Bautista MD IA No.: [id number] Inspector Packer POC Test Results from [facility] Urine Dipstick (13:07:26) Urine leukocytes: trace LEXIE Urine nitrites: - NIT Urine urobilinogen: - URO Urine protein: - PRO Urine pH: 5.0 pH Urine blood: - BLO Urine specific gravity: 1.010 SG Urine ketones: - KET Urine bilirubin: - MARCEL Urine glucose: - GLU ...................... ...................... ...................... ...................... ...................... ...................... ......... Inspector Packer Note From [facility]: This 48-year-old female [...] ...................... ...................... ...................... ...................... ...................... ...................... ......... [facility] Consulted: Jessica Hadley ...................... ...................... ...................... ...................... ...................... ...................... ......... Disposition: Fulfilled Jessica Hadley MD [address] [facility],[address], [place], [phone], [place] - ARIELLE GARCIA 03/23/2024 13:41:47 OBGyn Episode No OBEpisode recorded.
--- OUTSIDE RECORDS SUMMARY | 2024-04-14 14:05 | XMS_ITS | Encounter Summary ---
Author Organization [employer] Address [address] [facility] [address] [place] [address] Care Team Providers Care Office Cleaner Name Role Phone Maddie Kim MD Primary Care Provider [phone] Reason for Visit * Reason Onset Date Comments Med Refill 04/12/2023 Encounter Details Date Type Department Care Team ([facility] st Contact Info) Description 04/12/2023 Refill [facility] [address] [place], [place] [phone] Maddie Kim MD [address] [place], [place] [phone] Chronic bilateral low back pain without sciatica [...] Info) Description 07/01/2024 11:30 AM EDT Telemedicine [facility] [address] [place] [address] Maddie Kim MD [address] [place] [address] documented as of this encounter Visit Diagnoses Diagnosis Chronic bilateral low back pain without sciatica documented in this encounter Additional Health Concerns Assessment Noted Time PHQ-9 Depression Total Score: 0 05/30/19 23 3:26 PM EDT documented as of this encounter Care Teams Office Cleaner Relationship Specialty Start Date End Date Maddie Kim MD [address] [place] [address] PCP - General Family Medicine 07/12/20 Willie Gage 01/17/22 documented as of this encounter
--- OUTSIDE RECORDS SUMMARY | 2024-04-14 14:05 | XMS_ITS | Encounter Summary ---
Author Organization [employer] Address [address] [place] [address] 7[address] [place] [address] Care Team Providers Care Network Security Officer Name Role Phone Maddie Kim MD Primary Care Provider [phone] Encounter Details Date Type Department Care Team ([facility] Contact Info) Description 07/05/2022 Orders Only [facility] [address] [place] [address] [phone] Maddie Kim MD [address] [place] [address] [phone] Social History Tobacco Use Types Packs/Day Years [...] Upcoming Encounters Date Type Department Care Team ([facility] Contact Info) Description 07/01/2024 11:30 AM EDT Telemedicine [facility] [address] [place] [address] [phone] Maddie Kim MD [address] [place] [address] [phone] documented as of this encounter Visit Diagnoses Not on filedocumented in this encounter Additional Health Concerns Assessment Noted Time PHQ-9 Depression Total Score: 0 05/30/19 23 3:26 PM EDT documented as of this encounter Care Teams Network Security Officer Relationship Specialty Start Date End Date Maddie Kim MD [address] [place] [address] PCP - General Family Medicine 07/12/20 Willie Gage 01/17/22 documented as of this encounter
--- OUTSIDE RECORDS SUMMARY | 2024-04-14 14:05 | XMS_ITS | Encounter Summary ---
Author Organization [employer] Address [address] [facility] 7t [place] [address] Care Team Providers Care Roving Hauler Name Role Phone Maddie Kim MD Primary Care Provider [phone] Reason for Visit * Reason Comments Transition Of Care (Tcm) HDF- Unschedule d- PATIENT REQ. A HDF WITHIN 7 DAYS AND ONLY WITH HER PCP Encounter Details Date Type Department Care Team ([facility] st Contact Info) Description 03/28/2024 Patient Outreach [facility] [address] [place], [place] [phone] Maddie Kim MD 230 [place], [place] [phone] Transition Of Care (Tcm) (HDF- Unscheduled- PATIENT [...] t he electric, gas, oil or water [employer] threatened to shut off services in your [...] 1:27 PM EST TC placed to patient [phone] in regards to below message. Patient did not answer, RN left requesting CB to red team nurses. RN will re-attempt tomorrow if no CB. documented in this encounter Miscellaneous Notes * Significant Event - Ruby Summers - 03/28/2024 1:34 PM EST 03/28/24 1332 Hospital Discharges and Admission for [facility] Type of Visit Hospital Admission Date of Admission/Visit 03/25/24 Date of Discharge 03/27/24 Facility [facility] Diagnosis Hyponatremia Disposition Discharged Home Follow-Up [...] EDT Telemedicine [facility] [address] [place] [address] [phone] Maddie Kim MD [address] [place] [address] [phone] documented as of this encounter Visit Diagnoses Not on filedocumented in this encounter Additional Health Concerns Assessment Noted Time PHQ-9 Depression Total Score: 3 06/15/19 24 11:48 AM EDT documented as of this encounter Care Teams Roving Hauler Relationship Specialty Start Date End Date Maddie Kim MD [address] [place] [address] PCP - General Family Medicine 07/12/20 Willie Gage 01/17/22 documented as of this encounter
--- OUTSIDE RECORDS SUMMARY | 2024-04-14 14:05 | XMS_ITS | Encounter Summary ---
Author Organization [employer] Address [address] [place] [address] 7t [place] [address] Care Team Providers Care Overcaster Name Role Phone Maddie Kim MD Primary Care Provider Reason for Visit * Reason Onset Date Comments FYI 03/28/2024 Encounter Details Date Type Department Care Team ([facility] Contact Info) Description 03/28/2024 Telephone [facility] MEDICINE 230 [place], [place] [phone] Maddie Kim MD 230 [place], [place] [phone] Social History Tobacco Use Types Packs/Day Years [...] Gage stating that Pt was seen at [facility] and she also said that they took pt off Med hydroCHLOROthiazide (HYDRODiuril) 25 MG tablet If any questions contact Lauren at [phone] documented in this encounter Plan of Treatment Upcoming Encounters Date Type Department Care Team (Late st Contact Info) Description 07/01/2024 11:30 AM EDT Telemedicine [facility] MEDICINE 230 [place] [address] Maddie Kim MD 230 [place] [address] documented as of this encounter Visit Diagnoses Not on filedocumented in this encounter Additional Health Concerns Assessment Noted Time PHQ-9 Depression Total Score: 3 06/15/19 24 11:48 AM EDT documented as of this encounter Care Teams Overcaster Relationship Specialty Start Date End Date Maddie Kim MD 230 [place] [address] PCP - General Family Medicine 07/12/20 Willie Gage 01/17/22 documented as of this encounter
--- OUTSIDE RECORDS SUMMARY | 2024-04-14 14:05 | XMS_ITS | Encounter Summary ---
Author Organization [employer] Address [address] [facility] 7t [place] [address] Care Team Providers Care Lawn Specialist Name Role Phone Maddie Kim MD Primary Care Provider [phone] Encounter Details Date Type Department Care Team [...] Info) Description 07/01/2024 11:30 AM EDT Telemedicine [facility] MEDICINE 230 [place] [address] Maddie Kim MD 230 [place] [address] documented as of this encounter Visit Diagnoses Not on filedocumented in this encounter Additional Health Concerns Assessment Noted Time PHQ-9 Depression Total Score: 3 06/15/19 24 11:48 AM EDT documented as of this encounter Care Teams Lawn Specialist Relationship Specialty Start Date End Date Maddie Kim MD 230 [place] [address] PCP - General Family Medicine 07/12/20 Willie Gage 01/17/22 documented as of this encounter
--- OUTSIDE RECORDS SUMMARY | 2024-04-14 14:05 | XMS_ITS | Encounter Summary ---
Author Organization [employer] Address [address] [facility] 7t [place] [address] Care Team Providers Care Animal Services Officer Name Role Phone Maddie Kim MD Primary Care Provider [phone] Reason for Visit * Reason Comments Med Refill Encounter Details Date Type Department Care Team ([facility] st Contact Info) Description 04/12/2023 Refill [facility] [address] [place] [address] [phone] Isac Gonzalez MD 230 [place], [place] [phone] Chronic bilateral low back pain without sciatica [...] Info) Description 07/01/2024 11:30 AM EDT Telemedicine [facility] [address] [place] [address] Maddie Kim MD 230 [place] [address] documented as of this encounter Visit Diagnoses Diagnosis Chronic bilateral low back pain without sciatica documented in this encounter Additional Health Concerns Assessment Noted Time PHQ-9 Depression Total Score: 0 05/30/19 23 3:26 PM EDT documented as of this encounter Care Teams Animal Services Officer Relationship Specialty Start Date End Date Maddie Kim MD [address] [place] [address] PCP - General Family Medicine 07/12/20 Willie Gage 01/17/22 documented as of this encounter
--- OUTSIDE RECORDS SUMMARY | 2024-04-14 14:05 | XMS_ITS | Encounter Summary ---
Author Organization [employer] Address [address] [place] [address] 7t [place] [address] Care Team Providers Care Head Of Digital Name Role Phone Maddie Kim MD Primary Care Provider [phone] Reason for Visit * Reason Onset Date Comments Hospital Follow-up 03/28/2024 Encounter Details Date Type Department Care Team ([facility] Contact Info) Description 03/28/[address] [facility] MED[facility]INE 230 [place], [place] [phone] Maddie Kim MD 230 [place], [place] [phone] Hospital Follow-up Social History Tobacco Use Types [...] from pt requesting a HDF appt. Hospital: [facility] Date of admission: 03/24/24 Discharge date: 03/27/24 Diagnosed: Hyponatremia *Send message to [place] Clinical Care Coordinators documented in this encounter Plan of Treatment Upcoming Encounters Date Type Department Care Team (Late st Contact Info) Description 07/01/2024 11:[address] [facility] MED[facility] [address] [place] [address] Maddie Kim MD [address] [place] [address] documented as of this encounter Visit Diagnoses Not on filedocumented in this encounter Additional Health Concerns Assessment Noted Time PHQ-9 Depression Total Score: 3 06/15/19 24 11:48 AM EDT documented as of this encounter Care Teams Head Of Digital Relationship Specialty Start Date End Date Maddie Kim MD [address] [place] [address] PCP - General Family Medicine 07/12/20 Willie Gage 11/29/22 documented as of this encounter
--- OUTSIDE RECORDS SUMMARY | 2024-04-14 14:05 | XMS_ITS | Encounter Summary ---
Author Organization [employer] Address [address] [place] [address] 7t [place] [address] Care Team Providers Care Assault Amphibious Vehicle Officer Name Role Phone Maddie Kim MD Primary Care Provider [phone] Reason for Visit * Reason Onset Date Comments FYI 02/15/2024 Encounter Details Date Type Department Care Team ([facility] Contact Info) Description 02/15/2024 Telephone [facility] MEDICINE 230 [place], [place] [phone] Maddie Kim MD 230 [place], [place] [phone] FY Social History Tobacco Use Types Packs/Day [...] any questions you can contact Lauren at [phone]. documented in this encounter Plan of Treatment Upcoming Encounters Date Type Department Care Team (Late st Contact Info) Description 07/01/2024 11:30 AM EDT Telemedicine [facility]INE [address] [place] [address] Maddie Kim MD 230 [place] [address] documented as of this encounter Visit Diagnoses Not on filedocumented in this encounter Additional Health Concerns Assessment Noted Time PHQ-9 Depression Total Score: 3 06/15/19 24 11:48 AM EDT documented as of this encounter Care Teams Assault Amphibious Vehicle Officer Relationship Specialty Start Date End Date Maddie Kim MD [address] [place] [address] PCP - General Family Medicine 07/12/20 Willie Gage 01/17/22 documented as of this encounter
--- OUTSIDE RECORDS SUMMARY | 2024-04-14 14:05 | XMS_ITS | Encounter Summary ---
Author Organization [employer] Address 75 [facility] 7t [place] [address] Care Team Providers Care Supervisor Facepiece Line Name Role Phone Maddie Kim MD Primary Care Provider [phone] Reason for Visit * Reason Onset Date Comments Med Refill 05/10/2023 Encounter Details Date Type Department Care Team ([facility] st Contact Info) Description 05/10/2023 Refill [facility] MED[facility]INE 230 [place], [place] [phone] Maddie Kim MD 230 [place], [place] [phone] Chronic bilateral low back pain without sciatica [...] Info) Description 07/01/2024 11:30 AM EDT Telemedicine [facility]INE 230 [place] [address] Maddie Kim MD 230 [place] [address] documented as of this encounter Visit Diagnoses Diagnosis Chronic bilateral low back pain without sciatica documented in this encounter Additional Health Concerns Assessment Noted Time PHQ-9 Depression Total Score: 0 05/30/19 23 3:26 PM EDT documented as of this encounter Care Teams Supervisor Facepiece Line Relationship Specialty Start Date End Date Maddie Kim MD 230 [place], [place] [phone] PCP - General Family Medicine 07/12/20 Willie Gage 01/17/22 documented as of this encounter
--- OUTSIDE RECORDS SUMMARY | 2024-04-14 14:05 | XMS_ITS | Encounter Summary ---
Author Organization [employer] Address [address] [place] [address] 7t [place] [address] Care Team Providers Care Manager Project Name Role Phone Maddie Kim MD Primary Care Provider [phone] Reason for Visit * Reason Onset Date Comments No Show 04/02/2024 Encounter Details Date Type Department Care Team ([facility] Contact Info) Description 04/02/2024 Telephone [facility] MED[facility]INE 230 [place], [place] [phone] Maddie Kim MD 230 [place], [place] [phone] No Show Social History Tobacco Use Types [...] 07/01/2024 11:30 AM EDT Telemedicine [facility] MED[facility]INE 230 [place] [address] Maddie Kim MD 230 [place] [address] documented as of this encounter Visit Diagnoses Not on filedocumented in this encounter Additional Health Concerns Assessment Noted Time PHQ-9 Depression Total Score: 3 06/15/19 24 11:48 AM EDT documented as of this encounter Care Teams Manager Project Relationship Specialty Start Date End Date Maddie Kim MD 230 [place] [address] PCP - General Family Medicine 07/12/20 Willie Gage 01/17/22 documented as of this encounter
--- OUTSIDE RECORDS SUMMARY | 2024-04-14 14:05 | XMS_ITS | Encounter Summary ---
Author Organization [employer] Address [address] [place] [address] 7t [place] [address] Care Team Providers Care Item Processing Clerk Name Role Phone Maddie Kim MD Primary Care Provider [phone] Encounter Details Date Type Department Care Team ([facility] Contact Info) Description 06/26/2022 Abstract [facility] MEDICINE [address] [place] [address] Maddie Kim MD [address] [place] [address] [phone] Social History Tobacco Use Types Packs/Day Years [...] Upcoming Encounters Date Type Department Care Team ([facility] Contact Info) Description 07/01/2024 11:30 AM EDT Telemedicine [facility] MEDICINE 230 [place] [address] Maddie Kim MD 230 [place] [address] documented as of this encounter Visit Diagnoses Not on filedocumented in this encounter Additional Health Concerns Assessment Noted Time PHQ-9 Depression Total Score: 0 05/30/19 23 3:26 PM EDT documented as of this encounter Care Teams Item Processing Clerk Relationship Specialty Start Date End Date Maddie Kim MD 230 [place] [address] PCP - General Family Medicine 07/12/20 Willie Gage 01/17/22 documented as of this encounter
--- OUTSIDE RECORDS SUMMARY | 2024-04-14 14:05 | XMS_ITS | Encounter Summary ---
Author Organization [employer] Address [address] [facility] 7t [place] [address] Care Team Providers Care Fire Control Technician G Name Role Phone Maddie Kim MD Primary Care Provider [phone] Reason for Visit * Reason Onset Date Comments NUTRITION APPT REQUEST 03/20/2024 Encounter Details Date Type Department Care Team ([facility] Contact Info) Description 03/20/2024 Telephone [facility] MEDICINE 230 [place] [address] [place], [place] [phone] NUTRITION APPT REQUEST Social History Tobacco Use [...] Info) Description 07/01/2024 11:30 AM EDT Telemedicine [facility] MEDICINE 230 [place] [address] aMddie Kim MD [address] [place] [address] documented as of this encounter Visit Diagnoses Not on filedocumented in this encounter Additional Health Concerns Assessment Noted Time PHQ-9 Depression Total Score: 3 06/15/19 24 11:48 AM EDT documented as of this encounter Care Teams Fire Control Technician G Relationship Specialty Start Date End Date Maddie Kim MD [address] [place] [address] PCP - General Family Medicine 07/12/20 Willie Gage 01/17/22 documented as of this encounter
--- OUTSIDE RECORDS SUMMARY | 2024-04-14 14:05 | XMS_ITS | Encounter Summary ---
Author Organization [employer] Address [address] [facility] 7t [place] [address] Care Team Providers Care Nurse Practitioner Adult Name Role Phone Maddie Kim MD Primary Care Provider [phone] Reason for Visit * Reason Onset Date Comments Verbal orders/ Medication question 05/08/2023 Encounter Details Date Type Department Care Team ([facility] Contact Info) Description 05/08/2023 Telephone [facility] MEDICINE 230 [place], [place] [phone] Maddie Kim MD 230 [place], [place] [phone] Verbal orders/ Medication question Social History Tobacco [...] 05/09/2023 9:54 AM EDT TC placed to [place] at the [facility] and gave VO for jail for 3 times a week. Pt medications were also reconciled and pt reports using Viviscal OTC for hair growth and Calcium + VitD supplements. * Telephone Encounter - Toña Castillo - 05/08/2023 4:20 PM EDT Tc from [facility] requesting some verbal orders reconciliation for skill nursing 3 times a week. [place] is also requesting a call back to speak about patient's medications. documented in this encounter Plan of Treatment Upcoming Encounters Date Type Department Care Team (Late st Contact Info) Description 07/01/2024 11:30 AM EDT Telemedicine [facility] MED[facility]INE [address] [place] [address] Maddie Kim MD 230 [place] [address] documented as of this encounter Visit Diagnoses Not on filedocumented in this encounter Additional Health Concerns Assessment Noted Time PHQ-9 Depression Total Score: 0 05/30/19 23 3:26 PM EDT documented as of this encounter Care Teams Nurse Practitioner Adult Relationship Specialty Start Date End Date Maddie Kim MD [address] [place] [address] PCP - General Family Medicine 07/12/20 Willie Gage 01/17/22 documented as of this encounter
--- OUTSIDE RECORDS SUMMARY | 2024-04-14 14:05 | XMS_ITS | Encounter Summary ---
Author Organization [employer] Address 75 [facility] 7t [place] [address] Care Team Providers Care Dental Lab Technician Name Role Phone Maddie Kim MD Primary Care Provider [phone] Encounter Details Date Type Department Care Team ([facility] st Contact Info) Description 06/13/2023 Orders Only [facility] MEDICINE 230 [place], [place] [phone] Maddie Kim MD 230 [place], [place] [phone] Social History Tobacco Use Types Packs/Day Years [...] Info) Description 07/01/2024 11:30 AM EDT Telemedicine [facility] MEDICINE 230 [place] [address] Maddie Kim MD 230 [place] [address] documented as of this encounter Visit Diagnoses Not on filedocumented in this encounter Additional Health Concerns Assessment Noted Time PHQ-9 Depression Total Score: 0 05/30/19 23 3:26 PM EDT documented as of this encounter Care Teams Dental Lab Technician Relationship Specialty Start Date End Date Maddie Kim MD 230 [place] [address] PCP - General Family Medicine 07/12/20 Willie Gage 01/17/22 documented as of this encounter
--- OUTSIDE RECORDS SUMMARY | 2024-04-14 14:05 | XMS_ITS | Continuity of Care Document ---
Author Organization [employer] Address [address] [place] [phone] Care Team Providers Care Custodian Name Role Phone HIM [facility] OTHER [facility] OTHER Assessment No assessment recorded. Plan of [...] Name and Address Organization Details Recorded Time 02415 Dilantin medicatio n Not available Not available Not available 02/22/2024 46253 0 RxNorm Not Available [facility] - production 5 14:48:20 07171 sulfameth oxazole medicatio n Not available Not available Not available 02/22/2024 43943 RxNorm Not Available [facility] - production 5 14:48:20 04221 trimethop rim medicatio n Not available Not available Not available 02/22/2024 83735 RxNorm Not Available [facility] - production 5 14:48:20 27361 Product containin g penicilli n (product) medicatio n Not available Not available Not available 02/22/2024 38182 8001 SNOMED [facility] 14:48:20 39620 penicilli n G benzathin e medicatio n Not available Not available Not available 02/22/2024 7982 RxNorm Not Available [facility] - production 5 14:48:20 49958 penicilli n G procaine medicatio n Not [...] SNOMED-CT Code Diagnosis ICD10 Code Diagnosis Note [id number] Jessica Hadley MD Main - [facility] [address] [place] [phone] 03/23/2024 13:03:05 03/25/2024 16:45:46 Urinary symptoms [id number] R39.9 As noted, we were called to see this patient regarding concerns of urinary symptoms. Evaluation in the field was performed by my vending machine coin collector colleague, as noted above, I provided real-time [...] changes to consciousn ess, chest pain, dypsnea. [id number] Alisia Aguirre MD [facility] - [address] [phone] 04/01/2024 18:50:28 04/01/2024 19:49:17 Low back pain [id number] M54.50 48 year old female with a [...] of the lower extremitie s. Prior to [facility]'s visit she took an excedrin which is helping bring the paind own. Exam notable for normal vital signs, neurologic exam is grossly normal. Presentati on consistent with acute on chronic lumbar radiculopa thy, no red flags noted. I have reviewed and agree with the assessment and plan as documented by the vending machine coin collector. I provided real-time medical direction for this [...] Fernandez Member ID Guarantor Name 04/01/2024 1 [facility] - DOS ON OR AFTER 2022 - DUAL ELIGIBLE - LONG-TERM OPTIONS AND ONE CARE (MEDICARE REPLACEMENT/ADV ANTAGE - HMO) Atiya Dotson [id number] Atiya Dotson Notes Date Note Type Note [...] ...................... ...................... ...................... ...................... ...................... ...................... ......... Guest Relations Agent Note From Inna Galvan: Sent to a [...] ...................... ...................... ...................... ...................... ...................... ...................... ......... [facility] Consulted: Alisia Aguirre ...................... ...................... ...................... ...................... ...................... ...................... ......... Disposition: Fulfilled Alisia Aguirer MD [address] [facility],[address], [place], [address], [employer] 04/01/2024 19:22:50 OBGyn Episode No OBEpisode recorded.
--- OUTSIDE RECORDS SUMMARY | 2024-04-14 14:05 | XMS_ITS | Encounter Summary ---
Author Organization [employer] Address [address] [facility] 7t [place] [address] Care Team Providers Care Pre K Special Education Teacher Name Role Phone Maddie Kim MD Primary Care Provider [phone] Reason for Visit * Reason Comments Med Refill Encounter Details Date Type Department Care Team ([facility] st Contact Info) Description 04/12/2023 Refill [facility] [address] [place] [address] [phone] Isac Gonzalez MD 230 [place], [place] [phone] Chronic bilateral low back pain without sciatica [...] Info) Description 07/01/2024 11:30 AM EDT Telemedicine [facility] MEDICINE [address] [place] [address] Maddie Kim MD 230 [place] [address] documented as of this encounter Visit Diagnoses Diagnosis Chronic bilateral low back pain without sciatica documented in this encounter Additional Health Concerns Assessment Noted Time PHQ-9 Depression Total Score: 0 05/30/19 23 3:26 PM EDT documented as of this encounter Care Teams Pre K Special Education Teacher Relationship Specialty Start Date End Date Maddie Kim MD [address] [place] [address] PCP - General Family Medicine 07/12/20 Willie Gage 01/17/22 documented as of this encounter
--- OUTSIDE RECORDS SUMMARY | 2024-04-14 14:05 | XMS_ITS | Encounter Summary ---
Author Organization [employer] Address [address] [place] [address] 7t [place] [address] Care Team Providers Care Hr Advisor Name Role Phone Maddie Kim MD Primary Care Provider [phone] Reason for Visit * Reason Onset Date Comments Durable Medical Equipment 03/02/2022 Encounter Details Date Type Department Care Team ([facility] st Contact Info) Description 03/02/2022 Telephone [facility] MEDICINE [address] [place] [phone] Shayna Pritchett, MAJO Durable Medical Equipment Social [...] send to L&C Please contact pt at [phone] documented in this encounter Plan of Treatment Upcoming Encounters Date Type Department Care Team (Late st Contact Info) Description 07/01/2024 11:30 AM EDT Telemedicine [facility] MEDICINE 230 [place] [address] Maddie Kim MD 230 [place], [place] [phone] documented as of this encounter Visit Diagnoses Not on filedocumented in this encounter Care Teams Hr Advisor Relationship Specialty Start Date End Date Maddie Kim MD 230 [place] [address] PCP - General Family Medicine 07/12/20 Willie Gage 01/17/22 documented as of this encounter
--- OUTSIDE RECORDS SUMMARY | 2024-04-14 14:06 | XMS_ITS | Encounter Summary ---
Author Organization [employer] Address [address] [facility] 7t [place] [address] Care Team Providers Care Retail Solar Advisor Name Role Phone Maddie Kim MD Primary Care Provider [phone] Reason for Visit * Reason Comments Med Refill Encounter Details Date Type Department Care Team ([facility] st Contact Info) Description 04/05/2023 Refill [facility] [address] [place] [address] [phone] Isac Gonzalez MD [address] [place] [address] [phone] Chronic bilateral low back pain without sciatica [...] - 04/06/2023 12:46 PM EST TC to [facility] pharmacy, T3 RX written 03/29/23 for #45 [...] Description 07/01/2024 11:30 AM EDT Telemedicine [facility] [address] [place] [address] Maddie Kim MD [address] [place] [address] documented as of this encounter Visit Diagnoses Diagnosis Chronic bilateral low back pain without sciatica documented in this encounter Additional Health Concerns Assessment Noted Time PHQ-9 Depression Total Score: 0 05/30/19 23 3:26 PM EDT documented as of this encounter Care Teams Retail Solar Advisor Relationship Specialty Start Date End Date Maddie Kim MD [address] [place] [address] PCP - General Family Medicine 07/12/20 Willie Gage 01/17/22 documented as of this encounter
--- OUTSIDE RECORDS SUMMARY | 2024-04-14 14:06 | XMS_ITS | Encounter Summary ---
Author Organization [employer] Address [address] [place] [address] 7t [place] [address] Care Team Providers Care Operations Support Representative Name Role Phone Maddie Kim MD Primary Care Provider [phone] Reason for Visit * Reason Onset Date Comments NTTS 03/24/2024 Encounter Details Date Type Department Care Team ([facility] Contact Info) Description 03/24/2024 Telephone [facility] [address] [place], [place] [phone] Sheila Rene RN [address] [place] [address] NTTS Social History Tobacco Use Types Packs/Day [...] pain NTTS RN's advised patient to call [facility] in the AM for a consult. TC placed to patient [phone] who reports [facility] evaluated her on 03/22/24 and stated she does not have a UTI. Patient reports she was informed her pain is most likely related to her bladder mesh which was placed after her bladder lifting surgery in 2022. Patient also reports she is currently at a partial program and the provider ordered BW which patient completed on 03/21/24 via [facility] [place] and her sodium returned [...] new appointment date and time. RN called [facility] [phone] to request visit note from 03/22/24 to be faxed to [phone]. RN also obtained [facility] labs from 03/21/24 and scanned into chart. documented in this encounter Plan of Treatment Upcoming Encounters Date Type Department Care Team (Late st Contact Info) Description 07/01/2024 11:30 AM EDT Telemedicine [facility] MED[facility]INE [address] [place], [place] [phone] Maddie Kim MD [address] [place] [address] documented as of this encounter Visit Diagnoses Not on filedocumented in this encounter Additional Health Concerns Assessment Noted Time PHQ-9 Depression Total Score: 3 06/15/19 24 11:48 AM EDT documented as of this encounter Care Teams Operations Support Representative Relationship Specialty Start Date End Date Maddie Kim MD [address] [place] [address] [phone] PCP - General Family Medicine 07/12/20 Willie Caring 01/17/22 documented as of this encounter
--- OUTSIDE RECORDS SUMMARY | 2024-04-14 14:06 | XMS_ITS | Encounter Summary ---
Author Organization [employer] Address [address] [facility] 7t [place] [address] Care Team Providers Care Residential Specialist Name Role Phone Maddie Kim MD Primary Care Provider [phone] Reason for Visit * Reason Onset Date Comments Med Refill 03/19/2023 Encounter Details Date Type Department Care Team ([facility] Contact Info) Description 03/19/2023 Telephone [facility] MED[facility]INE [address] [place] [address] Maddie Kim MD 230 [place], [place] [phone] Med Refill Social History Tobacco Use Types [...] Pt agrees. MD Maddie Saravia RN; [facility] Team Nurses Caller: Unspecified (2 weeks ago) I wrote her a work excuse extending her time for remote work until 04/05/23 * Telephone Encounter - Maddie Crawford RN - 04/02/2023 3:02 PM EST Images from the original note were not included. Triage call regarding Pt portal message below. Pt continues to have symptoms of Covid. Pt was seen in [facility] 03/29/[address] Gonzalez and dx of [...] better sooner [facility]. 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) and Mild Symptoms * General Care Advice for COVID-19 Symptoms * Humidifier * Coughing Spells * Pain and Fever Medicines * Mild Stomach and Intestinal Symptoms During COVID-19 Illness Atiya Johnson [facility] Clinial Support (supporting Lorrie Alaniz [...] Description 07/01/2024 11:30 AM EDT Telemedicine [facility] MEDICINE [address] [place] [address] Maddie Kim MD 230 [place] [address] documented as of this encounter Visit Diagnoses Not on filedocumented in this encounter Additional Health Concerns Assessment Noted Time PHQ-9 Depression Total Score: 0 05/30/19 23 3:26 PM EDT documented as of this encounter Care Teams Residential Specialist Relationship Specialty Start Date End Date Maddie Kim MD 230 [place] [address] PCP - General Family Medicine 07/12/20 Willie Gage 01/17/22 documented as of this encounter
--- OUTSIDE RECORDS SUMMARY | 2024-04-14 14:06 | XMS_ITS | Encounter Summary ---
Author Organization [employer] Address [address] [facility] 7t [place] [address] Care Team Providers Care Purchasing Associate Name Role Phone Maddie Kim MD Primary Care Provider [phone] Reason for Visit * Reason Comments Med Refill Encounter Details Date Type Department Care Team ([facility] st Contact Info) Description 03/18/2023 Refill [facility] [address] [place] [address] [phone] Maddie Kim MD [address] [place] [address] [phone] Social History Tobacco Use Types Packs/Day Years [...] EDT Telemedicine [facility] MEDICINE [address] [place] [address] Maddie Kim MD 230 [place] [address] documented as of this encounter Visit Diagnoses Not on filedocumented in this encounter Additional Health Concerns Assessment Noted Time PHQ-9 Depression Total Score: 0 05/30/19 23 3:26 PM EDT documented as of this encounter Care Teams Purchasing Associate Relationship Specialty Start Date End Date Maddie Kim MD [address] [place] [phone] PCP - General Family Medicine 07/12/20 Willie Gage 01/17/22 documented as of this encounter
--- OUTSIDE RECORDS SUMMARY | 2024-04-14 14:06 | XMS_ITS | Encounter Summary ---
Author Organization [employer] Address [address] [facility] 7t [place] [address] Care Team Providers Care Dyer Assistant Name Role Phone Maddie Kim MD Primary Care Provider [phone] Reason for Visit * Reason Onset Date Comments Nurse Triage 05/14/2023 Encounter Details Date Type Department Care Team ([facility] st Contact Info) Description 05/14/2023 Telephone [facility] MED[facility] 230 [place], [place] [phone] Maddie Kim MD 230 [place], [place] [phone] Nurse Triage Social History Tobacco Use Types [...] accepted this outcome Any questions to Destiny [phone] documented in this encounter Plan of Treatment Upcoming Encounters Date Type Department Care Team (Late st Contact Info) Description 07/01/2024 11:30 AM EDT Telemedicine [facility] MEDICINE [address] [place] [address] Maddie Kim MD [address] [place] [address] documented as of this encounter Visit Diagnoses Not on filedocumented in this encounter Additional Health Concerns Assessment Noted Time PHQ-9 Depression Total Score: 0 05/30/19 23 3:26 PM EDT documented as of this encounter Care Teams Dyer Assistant Relationship Specialty Start Date End Date Maddie Kim MD [address] [place] [id number] PCP - General Family Medicine 07/12/20 Willie Gage 01/17/22 documented as of this encounter
--- OUTSIDE RECORDS SUMMARY | 2024-04-14 14:06 | XMS_ITS | Clinical Summary ---
Author Organization Unknown Care Team Providers Care Christmas Bell Ringer Name Role Phone MARLON AHUMADA, JEAN-PIERRE Unavailable Unavailable ENRIQUE WEINSTEINW, WINNIE Unavailable Unavailable KATINA RN, ANASTACIA Unavailable Unavailable SMILEY RN, JENNI Unavailable Unavailable JAVIER RN, GABBY Unavailable Unavaila ble Payers Payer Name Policy Type Policy Number Effective Date Expira tion Date [facility] [id number] [place] [id number] MEDICARE - [facility] [place] - [place] [id number] Problems Condition Name Condition Details Condition Category [...] 2020-02 00:00: 00 03-07 00:00 :00 No [id number] 10 mg 3 TIMES DAILY 10 mg 3 TIMES DAILY (route: oral) Med Classific ation: Locomotor System buprenorphi ne 4 mg-naloxone 1 mg sublingual film 2020-02 00:00: 00 04-05 00:00 :00 No [id number] Per instruc tions NEEDED Per instructio ns NEEDED (route: sublingual ) Med Classific ation: Chemical Dependenc y, Agents to Treat divalproex 250 mg tablet,kassandra yed release 2020-02 00:00: 00 04-05 23:59 :00 No [id number] 250 mg DAILY 250 mg DAILY (route: oral) Med Classific ation: Central Nervous System Agents divalproex ER 500 mg tablet,exte nded release 24 hr 2020-02 00:00: 00 04-05 00:00 :00 No [id number] 500 mg 2 TIMES DAILY 500 mg 2 TIMES DAILY (route: oral) Med Classific ation: Central Nervous System Agents ferrous sulfate 325 mg (65 mg iron) tablet 2020-02 00:00: 00 04-05 00:00 :00 No [id number] 1 tablet DAILY 1 tablet DAILY (route: oral) Med Classific ation: Electroly te Balance-N utritiona l Products Invega Sustenna 156 mg/mL intramuscul ar syringe 2020-02 00:00: 00 05-11 23:59 :00 No [id number] 156 mg MONTHLY 156 mg MONTHLY (route: intramuscu lar) Med Classific ation: Central Nervous System Agents levothyroxi ne 25 mcg tablet 2020-02 00:00: 00 03-05 23:59 :00 No [id number] 25 mcg DAILY 25 mcg DAILY (route: oral) Med Classific ation: Endocrine lisinopril 5 mg tablet 2020-02 00:00: 00 11-21 23:59 :00 No [id number] 5 mg DAILY 5 mg DAILY (route: oral) Med Classific ation: Cardiovas cular Therapy Agents nicotine (polacrilex ) 4 mg gum 2020-02 00:00: 00 09-12 23:59 :00 No [id number] 4 gum NEEDED 4 gum NEEDED (route: buccal) Med Classific ation: Chemical Dependenc y, Agents to Treat nicotine 21mg/24hr-1 4mg/24hr-7m g/24hr daily transderm patches,seq uentl 2020-02 00:00: 00 09-12 23:59 :00 No [id number] 21 patch NEEDED 21 patch NEEDED (route: transderma l) Med Classific ation: Chemical Dependenc y, Agents to Treat nystatin 500,000 unit tablet 2020-02 00:00: 00 04-05 00:00 :00 No [id number] In unit 4 TIMES DAILY [id number] In unit 4 TIMES DAILY (route: oral) Med Classific ation: Anti-Infe ctive Agents omeprazole 20 mg tablet,kassandra yed release 2020-02 00:00: 00 Yes [id number] 20 mg DAILY 20 mg DAILY (route: oral) Med Classific ation: Gastroint estinal Therapy Agents prazosin 5 mg capsule 2020-02 00:00: 00 02-14 23:59 :00 No [id number] 5 capsule BEDTIME 5 capsule BEDTIME (route: oral) Med Classific ation: Cardiovas cular Therapy Agents trazodone 50 mg tablet 2020-02 00:00: 00 01-17 23:59 :00 No [id number] 50 mg NEEDED 50 mg NEEDED (route: oral) Med Classific ation: Central Nervous System Agents albuterol sulfate HFA 90 mcg/actuati on aerosol inhaler 04-05 00:00: 00 Yes [id number] 2 puff NEEDED 2 puff NEEDED (route: inhalation ) Med Classific ation: Respirato ry Therapy Agents Aspercreme with Aloe 10 % topical 04-05 00:00: 00 09-12 23:59 :00 No [id number] Per instruc tions NEEDED Per instructio ns NEEDED (route: topical) Med Classific ation: Dermatolo gical cyclobenzap rine 5 mg tablet 04-05 00:00: 00 01-17 23:59 :00 No [id number] 5 mg NEEDED 5 mg NEEDED (route: oral) Med Classific ation: Locomotor System Depakote 500 mg tablet,kassandra yed release 04-05 00:00: 00 05-06 23:59 :00 No [id number] 1000 mg 2 TIMES DAILY 1000 mg 2 TIMES DAILY (route: oral) Med Classific ation: Central Nervous System Agents diphenhydra mine 25 mg capsule 04-05 00:00: 00 06-01 23:59 :00 No [id number] 50 mg NEEDED 50 mg NEEDED (route: oral) Med Classific ation: Respirato ry Therapy Agents hydroxyzine HCl 50 mg tablet 2-15 00:00: 00 06-01 23:59 :00 No [id number] 50 mg 3 TIMES DAILY 50 mg 3 TIMES DAILY (route: oral) Med Classific ation: Central Nervous System Agents naltrexone 50 mg tablet 2-15 00:00: 00 06-01 23:59 :00 No [id number] 50 mg DAILY 50 mg DAILY (route: oral) Med Classific ation: Antidotes and other Reversal Agents Narcan 4 mg/actuatio n nasal spray 2-15 00:00: 00 06-01 23:59 :00 No [id number] Per instruc tions NEEDED Per instructio ns NEEDED (route: nasal) Med Classific ation: Antidotes and other Reversal Agents pyridoxine (vitamin B6) 25 mg tablet 2-15 00:00: 00 06-01 23:59 :00 No [id number] 25 mg DAILY 25 mg DAILY (route: oral) Med Classific ation: Electroly te Balance-N utritiona l Products Invega Sustenna 234 mg/1.5 mL intramuscul ar syringe 3-24 00:00: 00 Yes [id number] Per instruc tions MONTHLY Per instructio ns MONTHLY (route: intramuscu lar) Med Classific ation: Central Nervous System Agents Invega Sustenna 234 mg/1.5 mL intramuscul ar syringe 8-14 00:00: 00 11-30 23:59 :00 No [id number] 234 mg MONTHLY 234 mg MONTHLY (route: intramuscu lar) Med Classific ation: Central Nervous System Agents Celebrex 200 mg capsule 2021-02 0-26 00:00: 00 03-20 23:59 :00 No [id number] 200 mg 2 TIMES DAILY 200 mg 2 TIMES DAILY (route: oral) Alternate Route: NONE. Med Classific ation: Analgesic , Anti-infl ammatory or Antipyret ic Celebrex 200 mg capsule 1-30 00:00: 00 01-10 23:59 :00 No [id number] 200 mg DAILY 200 mg DAILY (route: oral) Alternate Route: NONE. Med Classific ation: Analgesic , Anti-infl ammatory or Antipyret ic docusate sodium 100 mg capsule 30 00:00: 00 01-29 23:59 :00 No [id number] 1 capsule 2 TIMES DAILY 1 capsule 2 TIMES DAILY (route: oral) Alternate Route: NONE. Med Classific ation: Gastroint estinal Therapy Agents Eliquis 2.5 mg tablet 30 00:00: 00 09-12 23:59 :00 No [id number] 1 tablet 2 TIMES DAILY 1 tablet 2 TIMES DAILY (route: oral) Med Classific ation: Hematolog ical Agents oxycodone 5 mg tablet 03-20 00:00: 00 04-18 23:59 :00 No [id number] Per instruc tions DIRECTED Per instructio ns DIRECTED (route: oral) Alternate Route: NONE. Med Classific ation: Analgesic , Anti-infl ammatory or Antipyret ic tramadol 50 mg tablet 03-20 00:00: 00 04-18 23:59 :00 No [id number] Per instruc tions DIRECTED Per instructio ns DIRECTED (route: oral) Med Classific ation: Analgesic , Anti-infl ammatory or Antipyret ic gabapentin 300 mg capsule 3-29 00:00: 00 01-10 23:59 :00 No [id number] 1 capsule 3 TIMES DAILY 1 capsule 3 TIMES DAILY (route: oral) Med Classific ation: Central Nervous System Agents cyclobenzap rine 5 mg tablet 7-27 00:00: 00 01-10 23:59 :00 No [id number] 1 tablet 3 TIMES DAILY 1 tablet 3 TIMES DAILY (route: oral) Med Classific ation: Locomotor System baclofen 10 mg tablet 2022-02 1-24 00:00: 00 03-30 23:59 :00 No [id number] 1 tablet DIRECTED 1 tablet DIRECTED (route: oral) Med Classific ation: Locomotor System docusate sodium 100 mg capsule 2022-02 00:00: 00 Yes [id number] 1 capsule NEEDED 1 capsule NEEDED (route: oral) Med Classific ation: Gastroint estinal Therapy Agents acetaminoph en 300 mg-codeine 30 mg tablet 2-09 00:00: 00 05-15 23:59 :00 No [id number] 1 tablet 3 TIMES DAILY 1 tablet 3 TIMES DAILY (route: oral) Med Classific ation: Analgesic , Anti-infl ammatory or Antipyret ic Paxlovid 300 mg (150 mg x 2)-100 mg tablets in a dose pack 09 00:00: 00 04-03 23:59 :00 No [id number] 3 tablet 2 TIMES DAILY 3 tablet 2 TIMES DAILY (route: oral) Med Classific ation: Anti-Infe ctive Agents tizanidine 4 mg tablet 03-30 00:00: 00 01-03 23:59 :00 No [id number] 1 tablet 3 TIMES DAILY 1 tablet 3 TIMES DAILY (route: oral) Med Classific ation: Locomotor System Depakote 500 mg tablet,kassandra yed release 3-23 00:00: 00 03-31 23:59 :00 No [id number] 1000 mg 2 TIMES DAILY 1000 mg 2 TIMES DAILY (route: oral) Med Classific ation: Central Nervous System Agents multivitami n tablet 15 00:00: 00 Yes [id number] 1 tablet DIRECTED 1 tablet DIRECTED (route: oral) Med Classific ation: Electroly te Balance-N utritiona l Products gabapentin 300 mg capsule 07-10 00:00: 00 Yes [id number] 2 capsule 3 TIMES DAILY 2 capsule 3 TIMES DAILY (route: oral) Med Classific ation: Central Nervous System Agents paliperidon e ER 1.5 mg tablet,exte nded release 24 hr 07-10 00:00: 00 11-22 23:59 :00 No [id number] 1 tablet DAILY 1 tablet DAILY (route: [...] AWARENESS FOR SAFETY AND WILL NOTIFY CLINICAL JAVA DEVELOPER ANALYST AND PHYSICIAN/PROVIDER WITH ANY CHANGE IN CONDITION. [code = SKILLED NURSE WILL MAINTAIN SITUATIONAL AWARENESS FOR SAFETY AND WILL NOTIFY CLINICAL JAVA DEVELOPER ANALYST AND PHYSICIAN/PROVIDER WITH ANY CHANGE IN CONDITION.] [...] ON THOSE MEDS. PATIENT STATES SHE WILL ENGINE COWLING INSTALLER MEDS FROM THE PHARMACY BEFORE NEXT SN [...] 00:00:00 2024-05-05 00:00:00 Outpatient RECERTIFIC GABBY BAUTISTA [facility] [id number] 43.75
--- OUTSIDE RECORDS SUMMARY | 2024-04-14 14:06 | XMS_ITS | Encounter Summary ---
Author Organization [employer] Address [address] [facility] 7t [place] [address] Care Team Providers Care Authorization Specialist Name Role Phone Maddie Kim MD Primary Care Provider Encounter Details Date Type Department Care Team ([facility] st Contact Info) Description 03/24/[address] [facility] MEDICINE [address] [place], [place] [phone] Maddie Kim MD [address] [place], [place] [phone] Social History Tobacco Use Types Packs/Day Years [...] reviewed meditech, patient is [place] [facility] [place]/t hypokalemia, hyperkalemia and hypotension. Patient admitted [...] 3:29 PM EST TC placed to patient [phone] to inform patient, PCP would like patient to repeat BW tomorrow as per provider [facility]. If sodium returns low again then [...] Name of Caller/Facility:Lauren Gage RN Callback number: [phone] Reason for Call: NA 125 Lauren RN [...] team nurses for follow up. High Priority [employer] Chat Secure Message also sent to Red Team Nurses. documented in this encounter Plan of Treatment Upcoming Encounters Date Type Department Care Team (Late st Contact Info) Description 07/01/2024 11:[address] [facility] MEDICINE [address] [place] [address] Maddie Kim MD [address] [place] [address] documented as of this encounter Visit Diagnoses Not on filedocumented in this encounter Additional Health Concerns Assessment Noted Time PHQ-9 Depression Total Score: 3 06/15/19 24 11:48 AM EDT documented as of this encounter Care Teams Authorization Specialist Relationship Specialty Start Date End Date Maddie Kim MD [address] [place] [address] PCP - General Family Medicine 07/12/20 Willie Gage 01/17/22 documented as of this encounter
--- OUTSIDE RECORDS SUMMARY | 2024-04-14 14:06 | XMS_ITS | Encounter Summary ---
Author Organization [employer] Address [address] [facility] 7t [place] [address] Care Team Providers Care Cellar Supervisor Name Role Phone Maddie Kim MD Primary Care Provider [phone] Reason for Visit * Reason Onset Date Comments Med Refill 04/04/2023 Encounter Details Date Type Department Care Team ([facility] st Contact Info) Description 04/04/2023 Refill [facility] [address] [place] [address] [phone] Isac Gonzalez MD 230 [place], [place] [phone] Chronic bilateral low back pain without sciatica [...] Info) Description 07/01/2024 11:30 AM EDT Telemedicine [facility] [address] [place] [address] Maddie Kim MD [address] [place] [address] documented as of this encounter Visit Diagnoses Diagnosis Chronic bilateral low back pain without sciatica documented in this encounter Additional Health Concerns Assessment Noted Time PHQ-9 Depression Total Score: 0 05/30/19 23 3:26 PM EDT documented as of this encounter Care Teams Cellar Supervisor Relationship Specialty Start Date End Date Maddie Kim MD [address] [place] [address] PCP - General Family Medicine 07/12/20 Willie Gage 01/17/22 documented as of this encounter
--- OUTSIDE RECORDS SUMMARY | 2024-04-14 14:06 | XMS_ITS | Encounter Summary ---
Author Organization [employer] Address [address] [facility] 7t [place] [address] Care Team Providers Care Prototype Machine Operator Name Role Phone Maddie Kim MD Primary Care Provider [phone] Encounter Details Date Type Department Care Team ([facility] st Contact Info) Description 03/19/2023 Orders Only [facility] MEDICINE [address] [place], [place] [phone] Maddie Kim MD [address] [place], [place] [phone] Herniated lumbar intervertebral disc (Primary Dx) Social [...] Info) Description 07/01/2024 11:30 AM EDT Telemedicine [facility] MEDICINE [address] [place] [address] Maddie Kim MD [address] [place] [address] documented as of this encounter Visit Diagnoses Diagnosis Herniated lumbar intervertebral disc- Primary Displacement of lumbar intervertebral disc without myelopathy documented in this encounter Additional Health Concerns Assessment Noted Time PHQ-9 Depression Total Score: 0 05/30/19 23 3:26 PM EDT documented as of this encounter Care Teams Prototype Machine Operator Relationship Specialty Start Date End Date Maddie Kim MD [address] [place] [address] PCP - General Family Medicine 07/12/20 Willie Gage 01/17/22 documented as of this encounter
--- OUTSIDE RECORDS SUMMARY | 2024-04-14 14:06 | XMS_ITS | Encounter Summary ---
Author Organization [employer] Address [address] [facility] 7t [place] [address] Care Team Providers Care Environmental Economist Name Role Phone Maddie Kim MD Primary Care Provider [phone] Reason for Visit * Reason Comments Med Refill Encounter Details Date Type Department Care Team ([facility] st Contact Info) Description 04/09/2024 Refill [facility] MEDICINE 230 [place], [place] [phone] Maddie Kim MD 230 [place], [place] [phone] Social History Tobacco Use Types Packs/Day Years [...] Info) Description 07/01/2024 11:30 AM EDT Telemedicine [facility] MED[facility]INE [address] [place] [address] Maddie Kim MD [address] [place] [phone] documented as of this encounter Visit Diagnoses Not on filedocumented in this encounter Additional Health Concerns Assessment Noted Time PHQ-9 Depression Total Score: 3 06/15/19 24 11:48 AM EDT documented as of this encounter Care Teams Environmental Economist Relationship Specialty Start Date End Date Maddie Kim MD [address] [place] [id number] PCP - General Family Medicine 07/12/20 Willie Gage 01/17/22 documented as of this encounter
--- OUTSIDE RECORDS SUMMARY | 2024-04-14 14:06 | XMS_ITS | Encounter Summary ---
Author Organization [employer] Address [address] [facility] [address]t [place] [address] Care Team Providers Care C Application Developer Name Role Phone Maddie Kim MD Primary Care Provider [phone] Encounter Details Date Type Department Care Team ([facility] st Contact Info) Description 04/14/2024 Orders Only [facility] [address] [place], [place] [phone] Maddie Kim MD [address] [place], [place] [phone] Social History Tobacco Use Types Packs/Day Years [...] Info) Description 07/01/2024 11:30 AM EDT Telemedicine [facility] [address] [place], [place] [phone] Maddie Kim MD [address] [place], [place] [phone] documented as of this encounter Procedures Procedure Name Priority Date/Time Associated Diagnosis Comments CBC WITH AUTO DIFFERENTIAL Routine 04/14/2024 12:47 PM EST documented in this encounter Results * (ABNORMAL) CBC auto differential (04/14/2024 12:47 PM EST) White Blood Count 6.5 4.8 - 10.8 X10*3/uL [facility] Red Blood Count 3.74(L) 4.20 - 5.50 X10*6/uL [facility] Hemoglobin 9.4(L) 12.0 - 16.0 g/dl [facility] Hematocrit 29.6(L) 37.0 - 47.0 % [facility] Mean Corpuscular Volume 79.1(L) 80.0 - 98.0 fL [facility] Mean Corpuscular Hemoglobin 25.1(L) 27.0 - 33.0 pg [facility] Mean Corpuscular HGB Conc 31.8 31.0 - 35.0 g/dl [facility] Red Cell Distribution Width 16.1(H) 11.0 - 16.0 % [facility] Platelet Count 530(H) 160 - 400 X10*3/uL [facility] Mean Platelet Volume 9.6 9.4 - 12.3 fL [facility] Neutrophils Percent Auto 56.2 45 - 73 % [facility] Imm Gran Pct Auto 0.6(H) 0.0 - 0.4 % [facility] Lymphocytes Percent Auto 32.5 20 - 40 % [facility] Monocytes Percent Auto 8.8 2 - 11 % [facility] Eosinophils Percent Auto 1.4 0 - 4 % [facility] Basophils Percent Auto 0.5 0 - 2 % [facility] NRBC Pct Auto 0.0 0.0 - 0.2 /100WBC [facility] Neutrophils Absolute Auto 3.7 2.0 - 8.3 x10*3/uL [facility] Imm Gran Abs Auto 0.04(H) 0.00 - 0.03 X10*3/uL [facility] Lymphocytes Absolute Auto 2.1 1.2 - 4.9 X10*3/uL [facility] Monocytes Absolute Auto 0.6 0.1 - 1.2 X10*3/uL [facility] Eosinophils Absolute Auto 0.1 0.0 - 0.4 X10*3/uL [facility] Basophils Absolute Auto 0.0 0.0 - 0.2 X10*3/uL [facility] NRBC Abs Auto 0.000 0.0 - 0.012 X10*3/uL [facility] 04/14/2024 12:4 7 PM EST 04/14/2024 12:47 PM EST us Gil Brewer MD LAB BLOOD ORDERABLES Final Resul t [facility] [address] [place] [phone] documented in this encounter Visit Diagnoses Not on filedocumented in this encounter Additional Health Concerns Assessment Noted Time PHQ-9 Depression Total Score: 3 06/15/19 24 11:48 AM EDT documented as of this encounter Care Teams C Application Developer Relationship Specialty Start Date End Date Maddie Kim MD [address] [place] [phone] PCP - General Family Medicine 07/12/20 Willie Gage 01/17/22 documented as of this encounter
--- OUTSIDE RECORDS SUMMARY | 2024-04-14 14:06 | XMS_ITS | Encounter Summary ---
Author Organization [employer] Address [address] [facility] 7t [place] [address] Care Team Providers Care Escapement Maker Name Role Phone Maddie Kim MD Primary Care Provider [phone] Reason for Visit * Reason Onset Date Comments Med Refill 02/14/2023 Encounter Details Date Type Department Care Team ([facility] Contact Info) Description 02/14/2023 Refill [facility] [address] [place] [address] [phone] Maddie Kim MD [address] [place], [place] [phone] Social History Tobacco Use Types Packs/Day Years [...] 07/01/2024 11:30 AM EDT Telemedicine [facility] [address] [place] [phone] Maddie Kim MD [address] [place], [place] [phone] documented as of this encounter Visit Diagnoses Not on filedocumented in this encounter Additional Health Concerns Assessment Noted Time PHQ-9 Depression Total Score: 0 05/30/19 23 3:26 PM EDT documented as of this encounter Care Teams Escapement Maker Relationship Specialty Start Date End Date Maddie Kim MD [address] [place] [address] [phone] PCP - General Family Medicine 07/12/20 Willie Gage 01/17/22 documented as of this encounter
--- OUTSIDE RECORDS SUMMARY | 2024-04-14 14:06 | XMS_ITS | Encounter Summary ---
Author Organization [employer] Address [address] [place] [address] 7t [place] [address] Care Team Providers Care Habilitation Training Specialist Name Role Phone Maddie Kim MD Primary Care Provider [phone] Reason for Visit * Reason Onset Date Comments CRITICAL RESULT CALL 04/10/2024 Encounter Details Date Type Department Care Team ([facility] Contact Info) Description 04/10/2024 Telephone [facility] [address] [place], [place] [phone] Maddie Kim MD [address] [place], [place] [phone] CRITICAL RESULT CALL Social History Tobacco Use Types Packs/Day Years [...] Telephone Encounter - Sheila Rene RN - 04/14/2024 11:04 AM EST TC placed to patient [phone] in regards to below message. Patient reports she has NOT heard from intelligence consultant as of yet. Per referral notes, referral was faxed to cardiology 04/10/24 however no notation of appointment yet. RN will send message to referral team to inquire on appointment as patient reports she is having a L knee replacement in 05/2024 and needs cardiology clearance. Patient also reports currently taking ferrous gluconate M,W,F 324m. Patient advised PCP has sent new RX to the pharmacy for ferrous gluconate 324mg daily. RN encouraged patient to take iron supplement with OJ for better absorption. Patient verbalized understanding. Patient to f/u PRN. Sending to PCP as FYI. * Telephone Encounter - Kasandra Salcido RN - 04/10/2024 9:44 AM EST Incoming call to the Critical Result line 04/10/24 at 9:44 AM Name of Caller/Facility[place] [place] [facility] Callback number: [phone] Reason for Call: Calling to inform that fax sent yesterday to [facility] Fax with lab and EKG results ordered by Psychiatrist in that program. Wants to make sure that PCP reviews and follows up with patientas needed. Above information verbally discussed with Sheila KASPER on Red team Ext [phone]. In basket message to be sent as HIGH PRIORITY to PCP and Team nurses for follow up documented in this encounter Plan of Treatment Upcoming Encounters Date Type Department Care Team (Late st Contact Info) Description 07/01/2024 11:30 AM EDT Telemedicine [facility] [address] [place] [address] Maddie Kim MD [address] [place] [phone] documented as of this encounter Visit Diagnoses Not on filedocumented in this encounter Additional Health Concerns Assessment Noted Time PHQ-9 Depression Total Score: 3 06/15/19 24 11:48 AM EDT documented as of this encounter Care Teams Habilitation Training Specialist Relationship Specialty Start Date End Date Maddie Kim MD [address] [place] [phone] PCP - General Family Medicine 07/12/20 Willie Gage 01/17/22 documented as of this encounter
[2024-04-14 14:22] LABS: Anion Gap 11 (12-20); Blood Urea Nitrogen 7 mg/dL (9-16); Calcium 9.3 mg/dL (8.4-10.2); Carbon Dioxide 26 mmol/L (22-29); Chloride 105 mmol/L (96-108); Cholesterol 148 mg/dL (<200); Estimated Glomerular Filt Rate > 60; Glucose Random 85 mg/dL (60-115); HDL Cholesterol 38 mg/dL (>40); LDL Cholesterol Calculated 85 mg/dL (<100); Potassium 4.3 mmol/L (3.3-5.1); Sodium 138 mmol/L (135-145); Triglycerides 125 mg/dL (<150)
[2024-04-14 14:23] LABS: Anion Gap 12 (12-20); Blood Urea Nitrogen 7 mg/dL (9-16); Calcium 9.5 mg/dL (8.4-10.2); Carbon Dioxide 27 mmol/L (22-29); Chloride 104 mmol/L (96-108); Estimated Glomerular Filt Rate > 60; Glucose Random 84 mg/dL (60-115); Iron 77 mcg/dL (30-160); Percent Iron Saturation 23 % (15-50); Potassium 4.3 mmol/L (3.3-5.1); Sodium 139 mmol/L (135-145); Total Iron Binding Capacity 339 mcg/dL (228-428); Unsaturated Iron Binding 262 ug/dL
[2024-04-14 14:41] LABS: Ferritin 61 ng/mL (10-250)
[2024-04-14 14:42] LABS: Cortisol Random 5.7 ug/dL
[2024-04-14 15:03] LABS: Osmolality Urine 212 mosm/kg (373-1093)
[2024-04-15 16:59] LABS: IgA 197 mg/dL (47-310); IgG 1545 mg/dL (600-1640); IgM 46 mg/dL (50-300)
== END 2024-04-14 12:19 | disposition home or self-care (01) ==
LOC: HO.LAB 12:18
PROVIDERS: Internal Medicine Geriatric Medicine; Student in an Organized Health Care Education/Training Program; PCP General Practice; Visit Provider Internal Medicine Nephrology
DX: E87.1 Hypo-osmolality and hyponatremia (principal); K92.1 Melena; D64.9 Anemia, unspecified; Z90.3 Acquired absence of stomach [part of]
CPT/HCPCS: 36415; 80048; 80061; 82533; 82728; 82784; 83540; 83935; 84300; 85025; 86334

== ENCOUNTER 2024-04-17 15:04 | Outpatient (AMB) | payer OTHER, SELFPAY ==
--- NOTE | 2024-04-17 15:11 | HO.NEPHOV_ITS ---
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 Required: No Accompanied by: Self / Same As Patient Allergies hydromorphone Allergy (Intermediate, Verified 04/17/24 15:24) Rash acyclovir Allergy (Unknown, Verified 04/17/24 15:24) Unknown insect venom [INSECT BITES] Allergy (Unknown, Verified 04/17/24 15:24) Difficulty Breathing sulfamethoxazole [From BACTRIM] Allergy (Unknown, Verified 04/17/24 15:24) Anaphylaxis trimethoprim [From BACTRIM] Allergy (Unknown, Verified 04/17/24:24) Anaphylaxis Penicillins [PCN] Allergy (Verified 04/17/24 15:24) Rash HPI Comments Details: 48 year old with bipolar disorder (was on valproic acid), hypertension and osteoarthritis recently presented to the emergency room after being advised to do so by her Mental Health team for management of hyponatremia. She was noted with mild hyponatremia with a serum sodium of 125 mmol/L but dropped to 119 mmol/L with mild hyperkalemia at 5.3 mmol/L. On arrival, she was also noted to be mildly hypotensive with BP of 100/62 mmHg. She responded by holding HCTZ and after starting salt tablets and urea. Her sodium improved to 130 over 2 days. She is here for follow up. She denies weakness or any mentation changes. She is not very strict with fluid restriction. [facility] Medical History (Updated 04/17/24 @ 15:32 by Bebeto Rodriguez MD) Hypertension Morbid obesity with BMI of 40.0-44.9, adult Bipolar I disorder, most recent episode (or current) depressed Hx of migraines Osteoarthritis of lower back Lumbar herniated disc HTN (hypertension) Diabetes Substance dependence, daily use Lumbar herniated disc Trigger finger Carpal tunnel syndrome Bowel obstruction Abdominal wall ulcer LGSIL on Pap smear of cervix PTSD (post-traumatic stress disorder) Cocaine abuse Baclofen overdose Bipolar 1 disorder, manic, moderate Alcohol abuse Substance abuse Psychiatric diagnosis Hypertension Surgical History History of total knee replacement (TKR) H/O colonoscopy H/O gastric sleeve History of ankle surgery History of carpal tunnel surgery of right wrist Total knee replacement status H/O removal of cyst Gastric bypass status for obesity Hx of tubal ligation History of stress incontinence procedure using tension free vaginal tape History of knee replacement procedure of right knee History of cholecystectomy History of ankle surgery Family History Family/Other Breast cancer Maternal Aunt Cervical cancer Mother Stomach cancer Social History Household Members: None Household Members Other:: lives by self Housing: Apartment Do you presently have visiting nurse or other home services: Yes (Willie isaac) Unable to assess alcohol history related to: Unknown Alcohol intake: former Comment: ZHANE 04/24/24 Patient Tobacco Use Status: Current everyday Tobacco user Tobacco use type: Cigarette Cigarette Packs Per Day: 0.5 Cigarettes Per Day: 10.0 Years Smoked: 34 e-Cigarette/Vaping Use: Currently Using Second Hand Smoke Exposure: No Substance Use Type: Marijuana Advance Directives Date on File: 03/18/21 service: No 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al status: unemployed 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 handed/ [employer] Sexual orientation: Bisexual Female Reproductive History Menstrual Age of Menarche: 16 Review of Systems Const All systems reviewed & are unremarkable except as noted in HPI and below Physical Exam Vital Signs: Last Vital Signs Pulse 77 04/17/24 15:24 BP 120/82 04/17/24 15:24 Pulse Ox 96 04/17/24 15:24 Oxygen Delivery Method Room Air 04/17/24 15:24 BMI result Body Mass Index 42.1 Const General: comfortable and no acute distress Orientation/consciousness: patient oriented x3 HEENT Head: Yes normocephalic Mouth: Normal oral and palatal mucosa present Eyes EOM: EOMs intact bilaterally Neck Neck: Yes supple Resp Auscultation: clear to auscultation bilaterally Cardio Jugular venous distension: no JVD Rate: regular rate GI Palpation (GI): Soft to palpation Auscultation: normal bowel sounds General: Yes no CVA tenderness Back/Spine/Pelvis Back: no CVA tenderness Skin General skin exam: no rashes or lesions noted Neuro General: patient oriented x3 and moves all extremities Extrem General: Yes no pedal edema Results Reviewed Nephrology Results: Hgb 9.4 g/dl (12.0-16.0) L 04/14/24 WBC 6.5 X10*3/uL (4.8-10.8) 04/14/24 Plt Count 530 X10*3/uL (160-400) H 04/14/24 Sodium 139 mmol/L (135-145) 04/14/24 Potassium 4.3 mmol/L (3.3-5.1) 04/14/24 Chloride 104 mmol/L (96-108) 04/14/24 Carbon Dioxide 27 mmol/L (22-29) 04/14/24 BUN 7 mg/dL (9-16) L 04/14/24 Creatinine 0.69 mg/dL (0.5-1.4) 04/14/24 Calcium 9.5 mg/dL (8.4-10.2) 04/14/24 Urine Creatinine 48.90 mg/dL 03/25/24 Assessment & Plan Assessment & Plan (1) Hypertension: Code(s): I10 - Essential (primary) hypertension Category: Medical Qualifiers: Hypertension type: primary hypertension Qualified Code(s): I10 - Essential (primary) hypertension (2) Hyponatremia: Code(s): E87.1 - Hypo-osmolality and hyponatremia Category: Medical Plan Hyponatremia likely multifactorial- resolved No further HCTZ ; C/W fluid restriction for now; K OK Blood pressure at goal. Weight loss; Needs to quit smoking Shall monitor serum Na & renal function closely Answered all questions; F/U given Orders: Orders Blood Urea Nitrogen 3 Months E87.1 - Hypo-osmolality and hyponatremia, I10 - Essential (primary) hypertension Creatinine 3 Months E87.1 - Hypo-osmolality and hyponatremia, I10 - Essential (primary) hypertension Electrolytes 3 Months E87.1 - Hypo-osmolality and hyponatremia, I10 - Essential (primary) hypertension Coding Level of Care Code Est Pt Level 4 (89686) Diagnoses Primary hypertension I10 Hypertension type: primary hypertension Hyponatremia E87.1
[2024-04-17 15:24] VITALS: BP 120/82; PULSE 77; O2SAT 96; BMI 42.1
--- OUTSIDE RECORDS SUMMARY | 2024-04-17 18:23 | XMS_ITS | Clinical Summary ---
Author Organization Unknown Care Team Providers Care Motor Patrol Operator Name Role Phone MARLON AHUMADA, JEAN-PIERRE Unavailable Unavailable ENRIQUE WEINSTEINW, WINNIE Unavailable Unavailable KATINA RN, ANASTACIA Unavailable Unavailable SMILEY RN, JENNI Unavailable Unavailable JAVIER RN, GABBY Unavailable Unavaila ble Payers Payer Name Policy Type Policy Number Effective Date Expira tion Date [facility] [id number] [place] [id number] MEDICARE - [facility] [place] - [place] [id number] Problems Condition Name Condition Details Condition Category [...] 2020-02 00:00: 00 03-07 00:00 :00 No [id number] 10 mg 3 TIMES DAILY 10 mg 3 TIMES DAILY (route: oral) Med Classific ation: Locomotor System buprenorphi ne 4 mg-naloxone 1 mg sublingual film 2020-02 00:00: 00 04-05 00:00 :00 No [id number] Per instruc tions NEEDED Per instructio ns NEEDED (route: sublingual ) Med Classific ation: Chemical Dependenc y, Agents to Treat divalproex 250 mg tablet,kassandra yed release 2020-02 00:00: 00 04-05 23:59 :00 No [id number] 250 mg DAILY 250 mg DAILY (route: oral) Med Classific ation: Central Nervous System Agents divalproex ER 500 mg tablet,exte nded release 24 hr 2020-02 00:00: 00 04-05 00:00 :00 No [id number] 500 mg 2 TIMES DAILY 500 mg 2 TIMES DAILY (route: oral) Med Classific ation: Central Nervous System Agents ferrous sulfate 325 mg (65 mg iron) tablet 2020-02 00:00: 00 04-05 00:00 :00 No [id number] 1 tablet DAILY 1 tablet DAILY (route: oral) Med Classific ation: Electroly te Balance-N utritiona l Products Invega Sustenna 156 mg/mL intramuscul ar syringe 2020-02 00:00: 00 05-11 23:59 :00 No [id number] 156 mg MONTHLY 156 mg MONTHLY (route: intramuscu lar) Med Classific ation: Central Nervous System Agents levothyroxi ne 25 mcg tablet 2020-02 00:00: 00 03-05 23:59 :00 No [id number] 25 mcg DAILY 25 mcg DAILY (route: oral) Med Classific ation: Endocrine lisinopril 5 mg tablet 2020-02 00:00: 00 11-21 23:59 :00 No [id number] 5 mg DAILY 5 mg DAILY (route: oral) Med Classific ation: Cardiovas cular Therapy Agents nicotine (polacrilex ) 4 mg gum 2020-02 00:00: 00 09-12 23:59 :00 No [id number] 4 gum NEEDED 4 gum NEEDED (route: buccal) Med Classific ation: Chemical Dependenc y, Agents to Treat nicotine 21mg/24hr-1 4mg/24hr-7m g/24hr daily transderm patches,seq uentl 2020-02 00:00: 00 09-12 23:59 :00 No [id number] 21 patch NEEDED 21 patch NEEDED (route: transderma l) Med Classific ation: Chemical Dependenc y, Agents to Treat nystatin 500,000 unit tablet 2020-02 00:00: 00 04-05 00:00 :00 No [id number] In unit 4 TIMES DAILY [id number] In unit 4 TIMES DAILY (route: oral) Med Classific ation: Anti-Infe ctive Agents omeprazole 20 mg tablet,kassandra yed release 2020-02 00:00: 00 Yes [id number] 20 mg DAILY 20 mg DAILY (route: oral) Med Classific ation: Gastroint estinal Therapy Agents prazosin 5 mg capsule 2020-02 00:00: 00 02-14 23:59 :00 No [id number] 5 capsule BEDTIME 5 capsule BEDTIME (route: oral) Med Classific ation: Cardiovas cular Therapy Agents trazodone 50 mg tablet 2020-02 00:00: 00 01-17 23:59 :00 No [id number] 50 mg NEEDED 50 mg NEEDED (route: oral) Med Classific ation: Central Nervous System Agents albuterol sulfate HFA 90 mcg/actuati on aerosol inhaler 04-05 00:00: 00 Yes [id number] 2 puff NEEDED 2 puff NEEDED (route: inhalation ) Med Classific ation: Respirato ry Therapy Agents Aspercreme with Aloe 10 % topical 04-05 00:00: 00 09-12 23:59 :00 No [id number] Per instruc tions NEEDED Per instructio ns NEEDED (route: topical) Med Classific ation: Dermatolo gical cyclobenzap rine 5 mg tablet 04-05 00:00: 00 01-17 23:59 :00 No [id number] 5 mg NEEDED 5 mg NEEDED (route: oral) Med Classific ation: Locomotor System Depakote 500 mg tablet,kassandra yed release 04-05 00:00: 00 05-06 23:59 :00 No [id number] 1000 mg 2 TIMES DAILY 1000 mg 2 TIMES DAILY (route: oral) Med Classific ation: Central Nervous System Agents diphenhydra mine 25 mg capsule 04-05 00:00: 00 06-01 23:59 :00 No [id number] 50 mg NEEDED 50 mg NEEDED (route: oral) Med Classific ation: Respirato ry Therapy Agents hydroxyzine HCl 50 mg tablet 2-15 00:00: 00 06-01 23:59 :00 No [id number] 50 mg 3 TIMES DAILY 50 mg 3 TIMES DAILY (route: oral) Med Classific ation: Central Nervous System Agents naltrexone 50 mg tablet 2-15 00:00: 00 06-01 23:59 :00 No [id number] 50 mg DAILY 50 mg DAILY (route: oral) Med Classific ation: Antidotes and other Reversal Agents Narcan 4 mg/actuatio n nasal spray 2-15 00:00: 00 06-01 23:59 :00 No [id number] Per instruc tions NEEDED Per instructio ns NEEDED (route: nasal) Med Classific ation: Antidotes and other Reversal Agents pyridoxine (vitamin B6) 25 mg tablet 2-15 00:00: 00 06-01 23:59 :00 No [id number] 25 mg DAILY 25 mg DAILY (route: oral) Med Classific ation: Electroly te Balance-N utritiona l Products Invega Sustenna 234 mg/1.5 mL intramuscul ar syringe 3-24 00:00: 00 Yes [id number] Per instruc tions MONTHLY Per instructio ns MONTHLY (route: intramuscu lar) Med Classific ation: Central Nervous System Agents Invega Sustenna 234 mg/1.5 mL intramuscul ar syringe 8-14 00:00: 00 11-30 23:59 :00 No [id number] 234 mg MONTHLY 234 mg MONTHLY (route: intramuscu lar) Med Classific ation: Central Nervous System Agents Celebrex 200 mg capsule 2021-02 0-26 00:00: 00 03-20 23:59 :00 No [id number] 200 mg 2 TIMES DAILY 200 mg 2 TIMES DAILY (route: oral) Alternate Route: NONE. Med Classific ation: Analgesic , Anti-infl ammatory or Antipyret ic Celebrex 200 mg capsule 1-30 00:00: 00 01-10 23:59 :00 No [id number] 200 mg DAILY 200 mg DAILY (route: oral) Alternate Route: NONE. Med Classific ation: Analgesic , Anti-infl ammatory or Antipyret ic docusate sodium 100 mg capsule 30 00:00: 00 01-29 23:59 :00 No [id number] 1 capsule 2 TIMES DAILY 1 capsule 2 TIMES DAILY (route: oral) Alternate Route: NONE. Med Classific ation: Gastroint estinal Therapy Agents Eliquis 2.5 mg tablet 30 00:00: 00 09-12 23:59 :00 No [id number] 1 tablet 2 TIMES DAILY 1 tablet 2 TIMES DAILY (route: oral) Med Classific ation: Hematolog ical Agents oxycodone 5 mg tablet 03-20 00:00: 00 04-18 23:59 :00 No [id number] Per instruc tions DIRECTED Per instructio ns DIRECTED (route: oral) Alternate Route: NONE. Med Classific ation: Analgesic , Anti-infl ammatory or Antipyret ic tramadol 50 mg tablet 03-20 00:00: 00 04-18 23:59 :00 No [id number] Per instruc tions DIRECTED Per instructio ns DIRECTED (route: oral) Med Classific ation: Analgesic , Anti-infl ammatory or Antipyret ic gabapentin 300 mg capsule 3-29 00:00: 00 01-10 23:59 :00 No [id number] 1 capsule 3 TIMES DAILY 1 capsule 3 TIMES DAILY (route: oral) Med Classific ation: Central Nervous System Agents cyclobenzap rine 5 mg tablet 7-27 00:00: 00 01-10 23:59 :00 No [id number] 1 tablet 3 TIMES DAILY 1 tablet 3 TIMES DAILY (route: oral) Med Classific ation: Locomotor System baclofen 10 mg tablet 2022-02 1-24 00:00: 00 03-30 23:59 :00 No [id number] 1 tablet DIRECTED 1 tablet DIRECTED (route: oral) Med Classific ation: Locomotor System docusate sodium 100 mg capsule 2022-02 00:00: 00 Yes [id number] 1 capsule NEEDED 1 capsule NEEDED (route: oral) Med Classific ation: Gastroint estinal Therapy Agents acetaminoph en 300 mg-codeine 30 mg tablet 2-09 00:00: 00 05-15 23:59 :00 No [id number] 1 tablet 3 TIMES DAILY 1 tablet 3 TIMES DAILY (route: oral) Med Classific ation: Analgesic , Anti-infl ammatory or Antipyret ic Paxlovid 300 mg (150 mg x 2)-100 mg tablets in a dose pack 09 00:00: 00 04-03 23:59 :00 No [id number] 3 tablet 2 TIMES DAILY 3 tablet 2 TIMES DAILY (route: oral) Med Classific ation: Anti-Infe ctive Agents tizanidine 4 mg tablet 03-30 00:00: 00 01-03 23:59 :00 No [id number] 1 tablet 3 TIMES DAILY 1 tablet 3 TIMES DAILY (route: oral) Med Classific ation: Locomotor System Depakote 500 mg tablet,kassandra yed release 3-23 00:00: 00 03-31 23:59 :00 No [id number] 1000 mg 2 TIMES DAILY 1000 mg 2 TIMES DAILY (route: oral) Med Classific ation: Central Nervous System Agents multivitami n tablet 15 00:00: 00 Yes [id number] 1 tablet DIRECTED 1 tablet DIRECTED (route: oral) Med Classific ation: Electroly te Balance-N utritiona l Products gabapentin 300 mg capsule 07-10 00:00: 00 Yes [id number] 2 capsule 3 TIMES DAILY 2 capsule 3 TIMES DAILY (route: oral) Med Classific ation: Central Nervous System Agents paliperidon e ER 1.5 mg tablet,exte nded release 24 hr 07-10 00:00: 00 11-22 23:59 :00 No [id number] 1 tablet DAILY 1 tablet DAILY (route: [...] AWARENESS FOR SAFETY AND WILL NOTIFY CLINICAL TUFTING MACHINE OPERATOR AND PHYSICIAN/PROVIDER WITH ANY CHANGE IN CONDITION. [code = SKILLED NURSE WILL MAINTAIN SITUATIONAL AWARENESS FOR SAFETY AND WILL NOTIFY CLINICAL TUFTING MACHINE OPERATOR AND PHYSICIAN/PROVIDER WITH ANY CHANGE IN CONDITION.] [...] AND ED USE BY END OF EPISODE. Encounters Start Date/Time End Date/Time Encounter Type Admission Type Attending Clinicians Care Facility Care Department Encounter ID Discharge Date Discharge Status Discharge Condition Discharge Reason Percent Goals Met 2022-01-17 00:00:00 2024-05-05 00:00:00 Outpatient RECERTIFIC ATION GABBY HERRERA [facility] [id number]
--- OUTSIDE RECORDS SUMMARY | 2024-04-17 18:23 | XMS_ITS | Data Portability ---
Author Organization [employer], Al in - [employer] Address [address] [place] [phone] Care Team Providers Care Upholsterer Outside Name Role Phone HIM CCA OTHER [facility] OTHER [phone] Assessment Encounter Date Assessment Date Assessment LastModified by Organization Details LastModified Time 02/23/2024 02/23/2024 I provided real -time medical direction via phone for this encounter and was available for additional phone-based assistance as needed. I have reviewed and agree with the Assessment and Plan as documented by the Excel Vba Developer. Patient given the opportunity to ask questions. [...] The patient is now voiding normally. Per system configuration specialist on the scene the patient has stable vitals and is afebrile currently after taking Tylenol. Known UTI and would continue to take the antibiotic prescribed as well as Tylenol. Discussed red flags. Medic request urine culture sent to [facility]. Allergies: Reviewed Not available 02/23/2024 16:20:42 02/26/2024 02/26/2024 I have reviewed and agree with the assessment and plan as documented by the system configuration specialist. I provided real-time medical direction for this encounter and was immediately available to provide additional phone-based assistance as needed. History as noted in EMR and by system configuration specialist. I would add / emphasize: Patient seen [...] recorded. Lab urinalysis , dipstick 2024 025 [facility], [address] [place] [address], [id number], 16:34:28 culture, urine 2024 025 SAB[facility] (Centralized Electronic Ordering - All Locations), Patient Can Go To The Location Of Their Choice, [address] 20:06:10 culture, urine 2024 025 S[facility] (Centralized Electronic Ordering - All Locations), Patient Can Go To The Location Of Their Choice, [id number] 5 08:07:59 rapid flu (A+B) 2024 025 [facility], [address] [place] [address], [id number], 5 08:13:58 rapid SARS CoV 2 Ag, QL IA, respirator y specimen 2024 025 [facility], [address] [place] [address], [id number], 5 08:13:39 culture, urine 2024 025 [facility], [address], Mohinder B, [place], [address], 04:41:56 culture, urine 2024 025 [email or web address] [facility] (Centralized Electronic Ordering - All Locations), Patient Can Go To The Location Of Their Choice, [address] 15:02:19 urinalysis , dipstick 2024 025 [facility], [address] [place] [address], [id number], 07:58:13 Referral None recorded. Procedures None recorded. Surgeries None recorded. Imaging None recorded. Medication Orders Macrobid [address] [facility]/Pharmacy #1026, [address] [place], [address], 5 21:48:16 Macrobid 100 mg capsule 2024 025 [facility], [address] [place], [address], 5 22:18:22 Macrobid 100 mg capsule 2024 025 [facility], [address] [place], [address], 5 21:49:28 phenazopyr idine 100 mg tablet 2024 025 [facility], [address] [place], [address], 5 21:48:19 Patient TargetsNo targets recorded. Patient InstructionsNo instructions recorded. Reason for Referral None Reported. Results Created Date Observation Date Name Description Value Unit Range Abnormal Flag Note LastModifiedBy Organization Detail LastModifiedTime 02/22/19 25 02/26/2024 CULTU RE, URINE , ROUTI NE culture, urine, routine SEE NOTE CULTU RE, URINE , ROUTI NE Micro Numbe r: [id number] Test Statu s: Final Speci men Sourc e: Urine Speci men Quali ty: Adequ ate Resul t: No Growt h Not Available [facility] [address] [place] [address], [place], [address], 02/26/2024 04:41:56 02/25/19 25 02/29/2024 URINE CULTU RE,CO MPREH ENSIV E urine culture,comp rehensive Final report Not Available [facility] ([facility]) [address] [facility], [place], [address], 02/29/2024 10:06:00 02/25/19 25 02/29/2024 URINE CULTU RE,CO MPREH ENSIV E result 1 COMMEN T No growt h in 36 - 48 hours . Not Available [facility] ([facility]) [address] [facility], [place], [address], 02/29/2024 10:06:00 03/23/19 25 03/24/2024 URINE CULTU RE, ROUTI NE urine culture, routine Final report Not Available [facility] ([facility]) [address] [place], [address], 03/24/2024 20:06:10 03/23/19 25 03/24/2024 URINE CULTU RE, ROUTI NE result 1 COMMEN T Cultu re shows less than 10,00 0 colon y formi ng units of bacte carter per angela liter of urine . This colon y count is not gener ally consi dered to be clini rubén signi fican t. Not Available [facility] ([facility]) [address] [facility], [place], [address], 03/24/2024 20:06:10 Result Notes None recorded. Medical Equipment None Reported. Allergies Allergen ID Allergen Name Allergen Category Reaction Reaction Severity Criticality Documentation Date Start Date Code Code System Note Provider Name and Address Organization Details Recorded Time 30239 Dilantin medicatio n Not available Not available Not available 02/22/2024 71853 0 RxNorm Not Available [facility] - production 14:48:20 20748 sulfameth oxazole medicatio n Not available Not available Not available 02/22/2024 35296 RxNorm Not Available [facility] - production 5 14:48:20 12308 trimethop rim medicatio n Not available Not available Not available 02/22/2024 35245 RxNorm Not Available [facility] - production 5 14:48:20 07064 Product containin g penicilli n (product) medicatio n Not available Not available Not available 02/22/2024 43787 8001 SNOMED Not Available [facility] - production 5 14:48:20 12457 penicilli n G benzathin e medicatio n Not available Not available Not available 02/22/2024 7982 RxNorm Not Available [facility] - production 5 14:48:20 16238 penicilli n G procaine medicatio n Not available Not available Not available 02/22/2024 7983 RxNorm Not Available [facility] - production 5 14:48:20 Medications Name [...] 5 102 /min 98.8 [degF] 14 /min 499421. 08 g 98 % 98 % 130 [...] [degF] 157.48 cm 19 /min 96 /min 917043. 712 g 125 mm[Hg] 82 mm[Hg] Not [...] SNOMED-CT Code Diagnosis ICD10 Code Diagnosis Note [id number] ARIEL YAO MD Main - [facility] [address] [place] [phone] 02/22/2024 21:29:01 02/23/2024 18:48:12 Urinary symptoms [id number] R39.9 Evaluation in the field was performed by my system configuration specialist colleague, as noted above, I provided real-time [...] first dose was administer ed by the system configuration specialist. -To alleviate the burning sensation, a prescripti [...] or flank pain or any other concerns. [id number] Fawn Coelho MD Main - [facility] [address] [place] [phone] 02/23/2024 14:34:12 02/23/2024 18:56:04 Urinary symptoms [id number] R39.9 [id number] Aramis Gallardo MD Main - [facility] [address] [place] [address] 02/26/2024 11:22:16 02/28/2024 11:56:29 Urinary symptoms [id number] R39.9 Fever [id number] R50.9 [id number] Jessica Hadley MD Main - [facility] [address] [place] [phone] 03/23/2024 13:03:05 03/25/2024 16:45:46 Urinary symptoms [id number] R39.9 As noted, we were called to see this patient regarding concerns of urinary symptoms. Evaluation in the field was performed by my system configuration specialist colleague, as noted above, I provided real-time [...] changes to consciousn ess, chest pain, dypsnea. [id number] Alisia Aguirre MD [facility] - [address] [phone] 04/01/2024 18:50:28 04/01/2024 19:49:17 Low back pain [id number] M54.50 48 year old female with a [...] lower extremitie s. Prior to [facility]'s visit she took an excedrin which is helping bring the paind own. Exam notable for normal vital signs, neurologic exam is grossly normal. Presentati on consistent with acute on chronic lumbar radiculopa thy, no red flags noted. I have reviewed and agree with the assessment and plan as documented by the system configuration specialist. I provided real-time medical direction for this [...] Fernandez Member ID Guarantor Name 02/22/2024 1 [facility] - DOS ON OR AFTER 2022 - DUAL ELIGIBLE - FCI OPTIONS AND ONE CARE (MEDICARE REPLACEMENT/ADV ANTAGE - HMO) Atiya Dotson [id number] Atiyaabisai Dotson 02/23/2024 1 [facility] - DOS ON OR AFTER 2022 - DUAL ELIGIBLE - FCI OPTIONS AND ONE CARE (MEDICARE REPLACEMENT/ADV ANTAGE - HMO) Atiya Dotson [id number] Atiyaabisai Dotson 02/26/2024 1 [facility] - DOS ON OR AFTER 2022 - DUAL ELIGIBLE - FCI OPTIONS AND ONE CARE (MEDICARE REPLACEMENT/ADV ANTAGE - HMO) Atiya Dotson [id number] Atiya Y Mauri 03/23/2024 1 [facility] - DOS ON OR AFTER 2022 - DUAL ELIGIBLE - FCI OPTIONS AND ONE CARE (MEDICARE REPLACEMENT/ADV ANTAGE - HMO) Atiya Dotson [id number] Atiya Y Mauri 04/01/2024 1 [facility] - DOS ON OR AFTER 2022 - DUAL ELIGIBLE - FCI OPTIONS AND ONE CARE (MEDICARE REPLACEMENT/ADV ANTAGE - HMO) Atiya Dotson [id number] Atiya Dotson Notes Date Note Type Note [...] any additional information to process this visit. Excel Vba Developer Organization Information for [employer]ILDA [employer] Legal Name: [employer].? Address: [address] [place] [address] Equipment Processor: Benjy Haile MD IA No.: [id number] Excel Vba Developer POC Test Results from [employer] Urine Dipstick [...] ...................... ...................... ...................... ...................... ...................... ...................... ......... Excel Vba Developer Note From Summer Del Rio: Disp for [...] enough for a culture sample. Consulted with [facility] Dr. Yao. Dr. Yao confirmed UTI with urine dipstick results. Dr. Yao ordered 100mgs of Macrobid PO. Dr. Yao sent antibiotic and Pyridium to pharmacy. Dr. Yao advised patient to stop drinking caffeine and increase fluids as much as possible. Dr. Yao advised patient if UTI symptoms do not improved on antibiotic in one to two days, schedule another appointment with [facility] for urine culture. Patient understood. Patient administered 100mgs of macrobid PO. Patient educated on red flags/risk factors. All times approx.. ...................... ...................... ...................... ...................... ...................... ...................... ......... [facility] Consulted: Ariel Yao ...................... ...................... ...................... ...................... ...................... ...................... ......... Disposition: Lizette YAO MD [address] [facility],[address], [place], [address], [employer] 02/22/2024 22:29:56 02/23/2024 text/html CRC Nurse Triage [...] ...................... ...................... ...................... ...................... ...................... ...................... ......... Excel Vba Developer Note From Elias Garrison: Pt chief complaint today of fever/ uti symptoms going on for x 1 week. Pt was seen by [facility] personnel 1 day prior to her [facility] meeting today, urine dip was taken and positive for leukocytes and nitrates. [facility] medic was not able to acquire [...] blurred vision. Pt has taken Tylenol before [facility] arrival for fever suppression.Nonneural focal exam, afebrile, vitals WNL, lungs are clear bilaterally. Benign abdominal assessment, no lower extremity edema noted. Pt is CAOX4 with GCS of 15. Urine culture acquired, no urine dip due to positivity yesterday.[facility] Fawn Coelho consultedPt informed, to continue taking her antibiotic which was prescribed prior to her [facility] visit today. Pt told to intake fluids and take 1 gram of Tylenol every 8 hours in a 24 hour period as needed for general aches and fever. Pt also educated on red flag S&S and informed to call emergency services if any present. ...................... ...................... ...................... ...................... ...................... ...................... ......... [facility] Consulted: Fawn Coelho ..Bob................... ...................... ...................... ...................... ...................... ...................... ......... Disposition: Lizette Fawn Coelho MD [address] [facility],[address], [place], [address], CORRIE Velez magn[employer]360ARIELLE BALLARD 02/23/2024 16:21:22 02/26/2024 text/html CRC Nurse [...] relief. She would like to be evaluated. Excel Vba Developer Organization Information for Sandro Kearney [employer] Legal Name: [facility] Address: [address] [place] [address], [place] [address], Equipment Processor: Jeff Bautista MD CLIA No.: [id number] Excel Vba Developer POC Test Results from [employer] Rapid COVID antigen (11:21:01) COVID: - Rapid influenza antigen (11:21:02) Flu: - ...................... ...................... ...................... ...................... ...................... ...................... ......... Excel Vba Developer Note From Sandro Kearney: This 48-year-old female [...] ...................... ...................... ...................... ...................... ...................... ...................... ......... [facility] Consulted: Aramis Gallardo ...................... ...................... ...................... ...................... ...................... ...................... ......... Disposition: Fulfilled Aramis Gallardo MD [address] [place] [address],[address], [place], [address], [facility] - [employer] 02/28/2024 06:38:26 03/23/2024 text/html CRC Nurse Triage [...] - : Allergies Reviewed at 03/23/2024: Comments: Nursery Supervisor verified the Pt.'s name//address and phone number. [...] Tylenol for pain - Wellness visit requested Excel Vba Developer Organization Information for Sandro Kearney [employer] Legal Name: [facility] Address: [address] [place] [address] [place] [address], Equipment Processor: Jeff Bautista MD CLIA No.: [id number] Excel Vba Developer POC Test Results from Sandro Kearney - ALS Urine Dipstick (13:07:26) Urine leukocytes: trace LEXIE Urine nitrites: - NIT Urine urobilinogen: - URO Urine protein: - PRO Urine pH: 5.0 pH Urine blood: - BLO Urine specific gravity: 1.010 SG Urine ketones: - KET Urine bilirubin: - MARCEL Urine glucose: - GLU ...................... ...................... ...................... ...................... ...................... ...................... ......... Excel Vba Developer Note From Sandro Kearney: This 48-year-old female [...] ...................... ...................... ...................... ...................... ...................... ...................... ......... [facility] Consulted: Jessica Hadley ...................... ...................... ...................... ...................... ...................... ...................... ......... Disposition: Fulfilled Jessica Hadley MD [address] [place] [address],[address] [facility], [place], [address], [employer] 03/23/2024 13:41:47 04/01/2024 text/html CRC Nurse Triage [...] ...................... ...................... ...................... ...................... ...................... ...................... ......... Excel Vba Developer Note From Inna Galvan: Sent to a [...] ...................... ...................... ...................... ...................... ...................... ...................... ......... [facility] Consulted: Alisia Aguirre ...................... ...................... ...................... ...................... ...................... ...................... ......... Disposition: Fulfilled Alisia Aguirre MD [address] [facility],[address], [place], [address], CORRIE - ARIELLE GARCIA 04/01/2024 19:22:50 OBGyn Episode No OBEpisode recorded.
--- OUTSIDE RECORDS SUMMARY | 2024-04-17 18:23 | XMS_ITS | Encounter Summary ---
Author Organization [employer] Address [address] [facility] 7[address] [place] [address] Care Team Providers Care Associate Professor Of Counseling Name Role Phone Maddie Kim MD Primary Care Provider [phone] Encounter Details Date Type Department Care Team ([facility] st Contact Info) Description 07/29/2023 Orders Only [facility] [address] [place], [place] [phone] Maddie Kim MD [address] [place], [place] [phone] Social History Tobacco Use Types Packs/Day Years Used Date Smoking Tobacco: Every Day Cigarettes 0.5 25.2 Started: 02/19/1999 Passive Smoke Exposure: Past Smokeless [...] Info) Description 07/01/2024 11:30 AM EDT Telemedicine [facility] [address] [place] [address] Maddie Kim MD [address] [place] [address] documented as of this encounter Visit Diagnoses Not on filedocumented in this encounter Additional Health Concerns Assessment Noted Time PHQ-9 Depression Total Score: 3 06/15/19 24 11:48 AM EDT documented as of this encounter Care Teams Associate Professor Of Counseling Relationship Specialty Start Date End Date Maddie Kim MD [address] [place] [address] PCP - General Family Medicine 07/12/20 Willie Gage 01/17/22 documented as of this encounter
--- OUTSIDE RECORDS SUMMARY | 2024-04-17 18:23 | XMS_ITS | Encounter Summary ---
Author Organization [employer] Address [address] [facility] [address] [place] [address] Care Team Providers Care Loan Inspector Name Role Phone Maddie Kim MD Primary Care Provider [phone] Reason for Visit * Reason Onset Date Comments Nutrition Medication Question 05/30/2023 Encounter Details Date Type Department Care Team ([facility] Contact Info) Description 05/30/2023 Telephone [facility] [address] [place], [place] [phone] Maddie Kim MD [address] [place], [place] [phone] Nutrition Medication Question Social History Tobacco Use [...] 07/01/2024 11:30 AM EDT Telemedicine [facility] [address] [place] [address] Maddie Kim MD [address] [place] [address] documented as of this encounter Visit Diagnoses Not on filedocumented in this encounter Additional Health Concerns Assessment Noted Time PHQ-9 Depression Total Score: 0 05/30/19 23 3:26 PM EDT documented as of this encounter Care Teams Loan Inspector Relationship Specialty Start Date End Date Maddie Kim MD [address] [place] [phone] PCP - General Family Medicine 07/12/20 Willie Gage 01/17/22 documented as of this encounter
--- OUTSIDE RECORDS SUMMARY | 2024-04-17 18:23 | XMS_ITS | Encounter Summary ---
Author Organization [employer] Address [address] [place] [address] [address] [place] [address] Care Team Providers Care Electrical Contacts Adjuster Name Role Phone Maddie Kim MD Primary Care Provider Encounter Details Date Type Department Care Team (Late Contact Info) Description 01/27/2022 Telephone [facility] [address] [place] [phone] Maddie Kim MD [address] [place] [phone] Social History Tobacco Use Types Packs/Day Years [...] 07/01/2024 11:30 AM EDT Telemedicine [facility] [address] [place] [address] Maddie Kim MD [address] [place] [address] documented as of this encounter Visit Diagnoses Not on filedocumented in this encounter Care Teams Electrical Contacts Adjuster Relationship Specialty Start Date End Date Maddie Kim MD [address] [place] [address] PCP - General Family Medicine 07/12/20 Willie Gage 01/17/22 documented as of this encounter
--- OUTSIDE RECORDS SUMMARY | 2024-04-17 18:23 | XMS_ITS | Encounter Summary ---
Author Organization [employer] Address [address] [facility] [address]t [place] [address] Care Team Providers Care Program Rep Name Role Phone Maddie Kim MD Primary Care Provider [phone] Encounter Details Date Type Department Care Team ([facility] st Contact Info) Description 06/13/2023 Orders Only [facility] MED[facility]INE [address] [place], [place] [phone] Maddie Kim MD [address] [place], [place] [phone] Social History Tobacco Use Types Packs/Day Years [...] 07/01/2024 11:30 AM EDT Telemedicine [facility] MED[facility]INE [address] [place] [address] Maddie Kim MD [address] [place] [address] documented as of this encounter Visit Diagnoses Not on filedocumented in this encounter Additional Health Concerns Assessment Noted Time PHQ-9 Depression Total Score: 0 05/30/19 23 3:26 PM EDT documented as of this encounter Care Teams Program Rep Relationship Specialty Start Date End Date Maddie Kim MD [address] [place] [address] PCP - General Family Medicine 07/12/20 Willie Gage 01/17/22 documented as of this encounter
--- OUTSIDE RECORDS SUMMARY | 2024-04-17 18:23 | XMS_ITS | Encounter Summary ---
Author Organization [employer] Address [address] [facility] [address] [place] [address] Care Team Providers Care Demolition Crane Operator Name Role Phone Maddie Kim MD Primary Care Provider [phone] Encounter Details Date Type Department Care Team ([facility] st Contact Info) Description 05/15/2023 Orders Only [facility] MEDICINE [address] [place], [place] [phone] Maddie Kim MD [address] [place], [place] [phone] Social History Tobacco Use Types Packs/Day Years Used Date Smoking Tobacco: Former Cigarettes 0.3 25.2 S tarted: 02/19/1999 Passive Smoke Exposure: Past [...] Info) Description 07/01/2024 11:30 AM EDT Telemedicine [facility] MEDICINE [address] [place] [phone] Maddie Kim MD [address] [place] [address] [phone] documented as of this encounter Visit Diagnoses Not on filedocumented in this encounter Additional Health Concerns Assessment Noted Time PHQ-9 Depression Total Score: 0 05/30/19 23 3:26 PM EDT documented as of this encounter Care Teams Demolition Crane Operator Relationship Specialty Start Date End Date Maddie Kim MD [address] [place] [address] [phone] PCP - General Family Medicine 07/12/20 Willie Gage 01/17/22 documented as of this encounter
--- OUTSIDE RECORDS SUMMARY | 2024-04-17 18:23 | XMS_ITS | Encounter Summary ---
Author Organization [employer] Address [address] [facility] 7t [place] [address] Care Team Providers Care Adolescent Coordinator Name Role Phone Maddie iKm MD Primary Care Provider [phone] Reason for Visit * Reason Onset Date Comments Call Back Request 07/26/2023 Encounter Details Date Type Department Care Team ([facility] Contact Info) Description 07/26/2023 Telephone [facility] MEDICINE [address] [place] [address] Maddie Kim MD [address] [place], [place] [phone] Call Back Request Social History Tobacco Use [...] 07/27/2023 9:31 AM EDT Tc returned to [facility], questioning pt.'s risperidone inj rx on med list they received. Looking back in chart, this was discontinued after inpatient hosp in 2020 due to noncompliance with injections. This was the last time it was prescribed. [facility] is requesting this is taken off our med list for accuracy, thank you! * Telephone Encounter - Zach Carlson - 07/26/2023 4:12 PM EDT Tc from [facility] with Willie Gage requesting a call back for a med reconciliation. Please contact Georgie at [phone]. documented in this encounter Plan of Treatment Upcoming Encounters Date Type Department Care Team (Late st Contact Info) Description 07/01/2024 11:30 AM EDT Telemedicine [facility] MEDICINE [address] [place] [address] Maddie Kim MD [address] [place], [place] [phone] documented as of this encounter Visit Diagnoses Not on filedocumented in this encounter Additional Health Concerns Assessment Noted Time PHQ-9 Depression Total Score: 3 06/15/19 24 11:48 AM EDT documented as of this encounter Care Teams Adolescent Coordinator Relationship Specialty Start Date End Date Maddie Kim MD [address] [place] [address] PCP - General Family Medicine 07/12/20 Willie Gage 01/17/22 documented as of this encounter
--- OUTSIDE RECORDS SUMMARY | 2024-04-17 18:23 | XMS_ITS | Continuity of Care Document ---
Author Organization [employer] Address [address] [place] [phone] Care Team Providers Care Hotel Superintendent Name Role Phone HIM [facility] OTHER [facility] OTHER [phone] Assessment No assessment recorded. Plan of Treatment [...] Name and Address Organization Details Recorded Time 10287 Dilantin medicatio n Not available Not available Not available 02/22/2024 29581 0 RxNorm Not Available [facility] - production 5 14:48:20 06286 sulfameth oxazole medicatio n Not available Not available Not available 02/22/2024 72883 RxNorm Not Available [facility] - production 5 14:48:20 40513 trimethop rim medicatio n Not available Not available Not available 02/22/2024 87344 RxNorm Not Available [facility] - production 5 14:48:20 61955 Product containin g penicilli n (product) medicatio n Not available Not available Not available 02/22/2024 01278 8001 SNOMED [facility] Available [facility] 5 14:48:20 93341 penicilli n G benzathin e medicatio n Not available Not available Not available 02/22/2024 7982 RxNorm Not Available [facility] - production 5 14:48:20 81624 penicilli n G procaine medicatio n Not [...] SNOMED-CT Code Diagnosis ICD10 Code Diagnosis Note [id number] Jessica Hadley MD Main - [facility] [address] [place] [phone] 03/23/2024 13:03:05 03/25/2024 16:45:46 Urinary symptoms [id number] R39.9 As noted, we were called to see this patient regarding concerns of urinary symptoms. Evaluation in the field was performed by my planning director colleague, as noted above, I provided real-time [...] changes to consciousn ess, chest pain, dypsnea. [address] Alisia Aguirre MD [facility] - [address] [phone] 04/01/2024 18:50:28 04/01/2024 19:49:17 Low back pain [id number] M54.50 48 year old female with a [...] lower extremitie s. Prior to [facility]'s visit she took an excedrin which is helping bring the paind own. Exam notable for normal vital signs, neurologic exam is grossly normal. Presentati on consistent with acute on chronic lumbar radiculopa thy, no red flags noted. I have reviewed and agree with the assessment and plan as documented by the planning director. I provided real-time medical direction for this [...] Fernandez Member ID Guarantor Name 04/01/2024 1 [facility] - DOS ON OR AFTER 2022 - DUAL ELIGIBLE - INTERMEDIATE OPTIONS AND ONE CARE (MEDICARE REPLACEMENT/ADV ANTAGE - HMO) Atiya Dotson [id number] Atiya Dotson Notes Date Note Type Note [...] ...................... ...................... ...................... ...................... ...................... ...................... ......... Regulatory Analyst Note From Inna Galvan: Sent to a [...] ...................... ...................... ...................... ...................... ...................... ...................... ......... [facility] Consulted: Alisia Agiurre ...................... ...................... ...................... ...................... ...................... ...................... ......... Disposition: Fulfilled Alisia Aguirre MD [address] [facility],[address], [place], [address], [employer] 04/01/2024 19:22:50 OBGyn Episode No OBEpisode recorded.
--- OUTSIDE RECORDS SUMMARY | 2024-04-17 18:24 | XMS_ITS | Encounter Summary ---
Author Organization [employer] Address [address] [facility] 7t [place] [address] Care Team Providers Care Heavy Forging Machine Operator Name Role Phone Maddie Kim MD Primary Care Provider [phone] Encounter Details Date Type Department Care Team ([facility] st Contact Info) Description 02/22/2024 Orders Only [facility] MEDICINE [address] [place], [place] [phone] Maddie Kim MD [address] [place], [place] [phone] Social History Tobacco Use Types Packs/Day Years Used Date Smoking Tobacco: Former Cigarettes 0.5 25.2 S tarted: 02/19/1999 Passive Smoke Exposure: [...] Description 07/01/2024 11:30 AM EDT Telemedicine [facility] MEDICINE [address] [place] [address] Maddie Kim MD [address] [place] [address] documented as of this encounter Visit Diagnoses Not on filedocumented in this encounter Additional Health Concerns Assessment Noted Time PHQ-9 Depression Total Score: 3 06/15/19 24 11:48 AM EDT documented as of this encounter Care Teams Heavy Forging Machine Operator Relationship Specialty Start Date End Date Maddie Kim MD [address] [place] [address] PCP - General Family Medicine 07/12/20 Willie Gage 01/17/22 documented as of this encounter
--- OUTSIDE RECORDS SUMMARY | 2024-04-17 18:24 | XMS_ITS | Encounter Summary ---
Author Organization [employer] Address [address] [facility] 7t [place] [address] Care Team Providers Care Senior Procurement Manager Name Role Phone Maddie Kim MD Primary Care Provider [phone] Encounter Details Date Type Department Care Team [...] Info) Description 07/01/2024 11:30 AM EDT Telemedicine [facility] MEDICINE [address] [place] [address] Maddie Kim MD [address] [place] [address] documented as of this encounter Visit Diagnoses Not on filedocumented in this encounter Additional Health Concerns Assessment Noted Time PHQ-9 Depression Total Score: 3 06/15/19 24 11:48 AM EDT documented as of this encounter Care Teams Senior Procurement Manager Relationship Specialty Start Date End Date Maddie Kim MD [address] [place] [address] PCP - General Family Medicine 07/12/20 Willie Gage 01/17/22 documented as of this encounter
--- OUTSIDE RECORDS SUMMARY | 2024-04-17 18:24 | XMS_ITS | Encounter Summary ---
Author Organization [employer] Address [address] [place] [address] 7t [place] [address] Care Team Providers Care Hack Driver Name Role Phone Maddie Kim MD Primary Care Provider [phone] Encounter Details Date Type Department Care Team ([facility] Contact Info) Description 07/05/2022 Orders Only [facility] MEDICINE [address] [place] [address] [phone] Maddie Kim MD [address] [place] [address] [phone] Social History Tobacco Use Types Packs/Day Years Used Date Smoking Tobacco: Every Day Cigarettes 0.3 25.2 Started: 02/19/1999 Smokeless Tobacco: Never Alcohol Use [...] Upcoming Encounters Date Type Department Care Team ([facility] Contact Info) Description 07/01/2024 11:30 AM EDT Telemedicine [facility] MEDICINE [address] [place] [address] [phone] Maddie Kim MD [address] [place] [address] [phone] documented as of this encounter Visit Diagnoses Not on filedocumented in this encounter Additional Health Concerns Assessment Noted Time PHQ-9 Depression Total Score: 0 05/30/19 23 3:26 PM EDT documented as of this encounter Care Teams Hack Driver Relationship Specialty Start Date End Date Maddie Kim MD [address] [place] [address] PCP - General Family Medicine 07/12/20 Willie Gage 01/17/22 documented as of this encounter
--- OUTSIDE RECORDS SUMMARY | 2024-04-17 18:24 | XMS_ITS | Encounter Summary ---
Author Organization [employer] Address [address] [facility] 7t [place] [address] Care Team Providers Care Lane Marker Installer Name Role Phone Maddie Kim MD Primary Care Provider Reason for Visit * Reason Onset Date Comments Verbal orders/ Medication question 05/08/2023 Encounter Details Date Type Department Care Team ([facility] Contact Info) Description 05/08/2023 Telephone [facility] MEDICINE [address] [place], [place] [phone] Maddie Kim MD [address] [place], [place] [phone] Verbal orders/ Medication question Social History Tobacco [...] 05/09/2023 9:54 AM EDT TC placed to [place] at the [facility] and gave VO for correction for 3 times a week. Pt medications were also reconciled and pt reports using Viviscal OTC for hair growth and Calcium + VitD supplements. * Telephone Encounter - Toña Castillo - 05/08/2023 4:20 PM EDT Tc from [facility] requesting some verbal orders reconciliation for skill nursing 3 times a week. [place] is also requesting a call back to speak about patient's medications. documented in this encounter Plan of Treatment Upcoming Encounters Date Type Department Care Team (Late st Contact Info) Description 07/01/2024 11:30 AM EDT Telemedicine [facility] MEDICINE [address] [place] [address] Maddie Kim MD [address] [place] [address] documented as of this encounter Visit Diagnoses Not on filedocumented in this encounter Additional Health Concerns Assessment Noted Time PHQ-9 Depression Total Score: 0 05/30/19 23 3:26 PM EDT documented as of this encounter Care Teams Lane Marker Installer Relationship Specialty Start Date End Date Maddie Kim MD [address] [place] [address] PCP - General Family Medicine 07/12/20 Willie Gage 01/17/22 documented as of this encounter
--- OUTSIDE RECORDS SUMMARY | 2024-04-17 18:24 | XMS_ITS | Encounter Summary ---
Author Organization [employer] Address [address] [place] [address] 7t [place] [address] Care Team Providers Care Steel Manager Name Role Phone Maddie Kim MD Primary Care Provider Encounter Details Date Type Department Care Team (Late Contact Info) Description 11/14/2022 Orders Only [facility] MEDICINE [address] [place] [address] [phone] Maddie Kim MD [address] [place] [address] [phone] Social History Tobacco Use Types Packs/Day Years [...] Info) Description 07/01/2024 11:30 AM EDT Telemedicine [facility] MEDICINE [address] [place] [phone] Maddie Kim MD [address] [place] [address] [phone] documented as of this encounter Visit Diagnoses Not on filedocumented in this encounter Additional Health Concerns Assessment Noted Time PHQ-9 Depression Total Score: 0 05/30/19 23 3:26 PM EDT documented as of this encounter Care Teams Steel Manager Relationship Specialty Start Date End Date Maddie Kim MD [address] [place] [address] PCP - General Family Medicine 07/12/20 Willie Caring 01/17/22 documented as of this encounter
--- OUTSIDE RECORDS SUMMARY | 2024-04-17 18:24 | XMS_ITS | Encounter Summary ---
Author Organization [employer] Address [address] [place] [address] 7t [place] [address] Care Team Providers Care Gas Technician Name Role Phone Maddie Kim MD Primary Care Provider [phone] Reason for Visit * Reason Onset Date Comments c/b request 11/10/2022 Encounter Details Date Type Department Care Team ([facility] st Contact Info) Description 11/10/2022 Telephone [facility] MEDICINE [address] [place] [address] [phone] Maddie Kim MD [address] [place], [place] [phone] c/b request Social History Tobacco Use Types [...] to medication reconciliation. Please contact justus at [phone] documented in this encounter Plan of Treatment Upcoming Encounters Date Type Department Care Team (Late st Contact Info) Description 07/01/2024 11:30 AM EDT Telemedicine [facility] MEDICINE [address] [place] [address] Maddie Kim MD [address] [place] [phone] documented as of this encounter Visit Diagnoses Diagnosis Gastroesophageal reflux disease without esophagitis Esophageal reflux documented in this encounter Additional Health Concerns Assessment Noted Time PHQ-9 Depression Total Score: 0 05/30/19 23 3:26 PM EDT documented as of this encounter Care Teams Gas Technician Relationship Specialty Start Date End Date Maddie Kim MD [address] [place] [address] [phone] PCP - General Family Medicine 07/12/20 Willie Gage 01/17/22 documented as of this encounter
--- OUTSIDE RECORDS SUMMARY | 2024-04-17 18:24 | XMS_ITS | Encounter Summary ---
Author Organization [employer] Address [address] [facility] 7t [place] [address] Care Team Providers Care Batch Analyst Name Role Phone Maddie Kim MD Primary Care Provider [phone] Reason for Visit * Reason Onset Date Comments Call Back Request 03/31/2024 Encounter Details Date Type Department Care Team ([facility] Contact Info) Description 03/31/2024 Telephone [facility] MEDICINE 230 [place], [place] [phone] Maddie Kim MD [address] [place], [place] [phone] Call Back Request Social History Tobacco Use [...] 1:23 PM EST TC placed to patient [phone] in regards to below message. RN did attempt calling patient today(see [facility] encounter). Patient accepted HDF appointment for 04/02/24 at 11am for HDF. Patient to f/u PRN. * Telephone Encounter - Elier Mckinley - 03/31/2024 12:58 PM EST Tc from pt stating that a nurse Lesvia called her to transfer call to red team , rewriter verify and there was no notes operation shift supervisor she states that was placed. Pt then tells rewriter to tell nurse from red team to call her urgently. [phone] documented in this encounter Plan of Treatment Upcoming Encounters Date Type Department Care Team (Late st Contact Info) Description 07/01/2024 11:30 AM EDT Telemedicine [facility] MEDICINE [address] [place] [address] Maddie Kim MD [address] [place] [address] documented as of this encounter Visit Diagnoses Not on filedocumented in this encounter Additional Health Concerns Assessment Noted Time PHQ-9 Depression Total Score: 3 06/15/19 24 11:48 AM EDT documented as of this encounter Care Teams Batch Analyst Relationship Specialty Start Date End Date Maddie Kim MD [address] [place] [address] PCP - General Family Medicine 07/12/20 Willie Gage 01/17/22 documented as of this encounter
--- OUTSIDE RECORDS SUMMARY | 2024-04-17 18:24 | XMS_ITS | Encounter Summary ---
Author Organization [employer] Address [address] [facility] 7t [place] [address] Care Team Providers Care Baseball Scout Name Role Phone Maddie Kim MD Primary Care Provider Reason for Visit * Reason Onset Date Comments NUTRITION APPT REQUEST 03/20/2024 Encounter Details Date Type Department Care Team ([facility] Contact Info) Description 03/20/2024 Telephone [facility] MEDICINE [address] [place] [address] [place], [place] [phone] NUTRITION APPT REQUEST Social History Tobacco Use [...] Info) Description 07/01/2024 11:30 AM EDT Telemedicine [facility] MEDICINE [address] [place] [address] Maddie Kim MD [address] [place] [address] documented as of this encounter Visit Diagnoses Not on filedocumented in this encounter Additional Health Concerns Assessment Noted Time PHQ-9 Depression Total Score: 3 06/15/19 24 11:48 AM EDT documented as of this encounter Care Teams Baseball Scout Relationship Specialty Start Date End Date Maddie Kim MD [address] [place] [address] PCP - General Family Medicine 07/12/20 Willie Gage 01/17/22 documented as of this encounter
--- OUTSIDE RECORDS SUMMARY | 2024-04-17 18:24 | XMS_ITS | Continuity of Care Document ---
Author Organization [facility] [employer] [facility] [place] [facility] Address [address] [place] [phone] Care Team Providers Care Glove Parts Cutter Name Role Phone HIM [facility] OTHER [facility] OTHER Assessment No assessment recorded. Plan of Treatment Reminders Order Date Submit Date Provider Last Modified By Organization Details Last Modified Time Details Appointments None recorded. Lab urinalysis , dipstick 2024 025 [facility], [address] [place] [address], [id number], 16:34:28 culture, urine 2024 025 [place] [facility] (Centralized Electronic Ordering - All Locations), Patient Can Go To The Location Of Their Choice, [address] 20:06:10 Referral None recorded. Procedures None recorded. [...] Name and Address Organization Details Recorded Time 62755 Dilantin medicatio n Not available Not available Not available 02/22/202430296 0 RxNorm Not Available [facility] - production 14:48:20 08644 sulfameth oxazole medicatio n Not available Not available Not available 02/22/2024 95246 RxNorm Not Available [facility] - production 14:48:20 35256 trimethop rim medicatio n Not available Not available Not available 02/22/2024 01204 RxNorm Not Available [facility] - production 14:48:20 70825 Product containin g penicilli n (product) medicatio n Not available Not available Not available 02/22/2024 08080 8001 SNOMED Not Available [facility] - production 14:48:20 84678 penicilli n G benzathin e medicatio n Not available Not available Not available 02/22/2024 7982 RxNorm Not Available [facility] - production 14:48:20 18158 penicilli n G procaine medicatio n Not available Not available Not available 02/22/2024 7983 RxNorm Not Available [facility] - production 14:48:20 Medications Name Sig [...] SNOMED-CT Code Diagnosis ICD10 Code Diagnosis Note [id number] KALYN YAO MD Main - [facility] [address] [place] [phone] 02/22/2024 21:29:01 02/23/2024 18:48:12 Urinary symptoms [id number] R39.9 Evaluation in the field was performed by my inspector balance wheel motion colleague, as noted above, I provided real-time [...] first dose was administer ed by the inspector balance wheel motion. -To alleviate the burning sensation, a prescripti [...] or flank pain or any other concerns. [id number] Fawn Coelho MD Main - [facility] [address] [place] [phone] 02/23/2024 14:34:12 02/23/2024 18:56:04 Urinary symptoms [id number] R39.9 [id number] Aramis Gallardo MD Main - [facility] [address] [place] [phone] 02/26/2024 11:22:16 02/28/2024 11:56:29 Urinary symptoms [id number] R39.9 Fever [id number] R50.9 [id number] Jessica Hadley MD Main - [facility] [address] [place] [phone] 03/23/2024 13:03:05 03/25/2024 16:45:46 Urinary symptoms [id number] R39.9 As noted, we were called to see this patient regarding concerns of urinary symptoms. Evaluation in the field was performed by my inspector balance wheel motion colleague, as noted above, I provided real-time [...] Policy Number Policy Fernandez Covered Member ID [id number] Member ID Guarantor Name 03/23/2024 1 [facility] - DOS ON OR AFTER 2022 - DUAL ELIGIBLE - USP OPTIONS AND ONE CARE (MEDICARE REPLACEMENT/ADV ANTAGE - HMO) Atiya Dotson [id number] Atiya Dotson Notes Date Note Type Note [...] 03/23/2024 - Allergies Reviewed at 03/23/2024 Comments: Bilingual Medical Receptionist verified the Pt.'s name//address and phone number. [...] Tylenol for pain - Wellness visit requested Supervisor Mold Shop Organization Information for [facility] [employer] Legal Name: [facility] Address: [address] [place] [address], Rescue Instructor: Jeff Bautista MD IA No.: [id number] Supervisor [employer] POC Test Results from [facility] Urine Dipstick (13:07:26) Urine leukocytes: trace LEXIE Urine nitrites: - NIT Urine urobilinogen: - URO Urine protein: - PRO Urine pH: 5.0 pH Urine blood: - BLO Urine specific gravity: 1.010 SG Urine ketones: - KET Urine bilirubin: - MARCEL Urine glucose: - GLU ...................... ...................... ...................... ...................... ...................... ...................... ......... Supervisor [employer] Note From [facility]: This 48-year-old female [...] ...................... ...................... ...................... ...................... ...................... ...................... ......... [facility] Consulted: Jessica Hadley ...................... ...................... ...................... ...................... ...................... ...................... ......... Disposition: Fulfilled Jessica Hadley MD [address] [facility],[address], [place], [address], CORRIE - ARIELLE GARCIA 03/23/2024 13:41:47 OBGyn Episode No OBEpisode recorded.
--- OUTSIDE RECORDS SUMMARY | 2024-04-17 18:24 | XMS_ITS | Encounter Summary ---
Author Organization [employer] Address [address] [place] [address] 7t [place] [address] Care Team Providers Care Pantograph Operator Name Role Phone Maddie Kim MD Primary Care Provider [phone] Encounter Details Date Type Department Care Team ([facility] Contact Info) Description 04/11/2022 Abstract [facility] MEDICINE [address] [place] [address] [phone] Maddie Kim MD [address] [place] [address] [phone] Social History Tobacco Use Types Packs/Day Years [...] Description 07/01/2024 11:30 AM EDT Telemedicine [facility] MEDICINE [address] [place] [address] [phone] Maddie Kim MD [address] [place] [address] [phone] documented as of this encounter Visit Diagnoses Not on filedocumented in this encounter Care Teams Pantograph Operator Relationship Specialty Start Date End Date Maddie Kim MD [address] [place] [address] PCP - General Family Medicine 07/12/20 Willie Gage 01/17/22 documented as of this encounter
--- OUTSIDE RECORDS SUMMARY | 2024-04-17 18:24 | XMS_ITS | Encounter Summary ---
Author Organization [employer] Address [address] [place] [address] 7t [place] [address] Care Team Providers Care Tunnel Heading Inspector Name Role Phone Maddie Kim MD Primary Care Provider [phone] Reason for Visit * Reason Onset Date Comments FYI 02/15/2024 Encounter Details Date Type Department Care Team ([facility] Contact Info) Description 02/15/[address] [facility] 230 [place], [place] [phone] Maddie Kim MD 230 [place], [place] [phone] FY Social History Tobacco Use Types Packs/Day [...] any questions you can contact Lauren at [phone]. documented in this encounter Plan of Treatment Upcoming Encounters Date Type Department Care Team (Late st Contact Info) Description 07/01/2024 11:30 AM EDT Telemedicine [facility] [address] [place] [address] Maddie Kim MD 230 [place] [address] documented as of this encounter Visit Diagnoses Not on filedocumented in this encounter Additional Health Concerns Assessment Noted Time PHQ-9 Depression Total Score: 3 06/15/19 24 11:48 AM EDT documented as of this encounter Care Teams Tunnel Heading Inspector Relationship Specialty Start Date End Date Maddie Kim MD [address] [place] [address] PCP - General Family Medicine 07/12/20 Willie Gage 01/17/22 documented as of this encounter
--- OUTSIDE RECORDS SUMMARY | 2024-04-17 18:24 | XMS_ITS | Encounter Summary ---
Author Organization [employer] Address [address] [facility] 7t [place] [address] Care Team Providers Care Youth Advocate Name Role Phone Maddie Kim MD Primary Care Provider [phone] Reason for Visit * Reason Onset Date Comments Med Refill 04/04/2023 Encounter Details Date Type Department Care Team ([facility] st Contact Info) Description 04/04/[address] [facility] [address] [place] [address] [phone] Isac Gonzalez MD 230 [place], [place] [phone] Chronic bilateral low back pain without sciatica [...] 07/01/2024 11:30 AM EDT Telemedicine [facility] MEDICINE 230 [place] [address] Maddie Kim MD 230 [place] [address] documented as of this encounter Visit Diagnoses Diagnosis Chronic bilateral low back pain without sciatica documented in this encounter Additional Health Concerns Assessment Noted Time PHQ-9 Depression Total Score: 0 05/30/19 23 3:26 PM EDT documented as of this encounter Care Teams Youth Advocate Relationship Specialty Start Date End Date Maddie Kim MD 230 [place] [address] PCP - General Family Medicine 07/12/20 Willie Gage 01/17/22 documented as of this encounter
--- OUTSIDE RECORDS SUMMARY | 2024-04-17 18:24 | XMS_ITS | Encounter Summary ---
Author Organization [employer] Address 75 [facility] 7t [place] [address] Care Team Providers Care Edger Liner Name Role Phone Maddie Kim MD Primary Care Provider [phone] Reason for Visit * Reason Onset Date Comments Durable Medical Equipment 03/16/2022 Encounter Details Date Type Department Care Team ([facility] st Contact Info) Description 03/16/2022 Telephone [facility] 230 [place], [place] [phone] Maddie Kim MD 230 [place], [place] [phone] Durable Medical Equipment Social History Tobacco Use [...] it can fax to her landlord at [phone]. She would like the script to be to the [facility], [address] [place] [address] If any concerns please contact pt at [phone] documented in this encounter Plan of Treatment Upcoming Encounters Date Type Department Care Team (Late st Contact Info) Description 07/01/2024 11:30 AM EDT Telemedicine [facility] [address] [place] [address] Maddie Kim MD [address] [place] [address] documented as of this encounter Visit Diagnoses Not on filedocumented in this encounter Care Teams Edger Liner Relationship Specialty Start Date End Date Maddie Kim MD [address] [place] [address] PCP - General Family Medicine 07/12/20 Willie Gage 01/17/22 documented as of this encounter
--- OUTSIDE RECORDS SUMMARY | 2024-04-17 18:24 | XMS_ITS | Encounter Summary ---
Author Organization [employer] Address 75 [facility] 7t [place] [address] Care Team Providers Care Ethnic Origins Teacher Name Role Phone Maddie Kim MD Primary Care Provider [phone] Reason for Visit * Reason Onset Date Comments Med Refill 02/14/2023 Encounter Details Date Type Department Care Team ([facility] Contact Info) Description 02/14/2023 Refill [facility] [address] [place] [address] [phone] Maddie Kim MD 230 [place], [place] [phone] Social History Tobacco Use Types Packs/Day Years [...] Telemedicine [facility] MEDICINE [address] [place] [phone] Maddie Kim MD 230 [place], [place] [phone] documented as of this encounter Visit Diagnoses Not on filedocumented in this encounter Additional Health Concerns Assessment Noted Time PHQ-9 Depression Total Score: 0 05/30/19 23 3:26 PM EDT documented as of this encounter Care Teams Ethnic Origins Teacher Relationship Specialty Start Date End Date Maddie Kim MD [address] [place] [address] [phone] PCP - General Family Medicine 07/12/20 Willie Gage 01/17/22 documented as of this encounter
--- OUTSIDE RECORDS SUMMARY | 2024-04-17 18:24 | XMS_ITS | Encounter Summary ---
Author Organization [employer] Address [address] [place] [address] 7t [place] [address] Care Team Providers Care Hospital Scientist Name Role Phone Maddie Kim MD Primary Care Provider [phone] Encounter Details Date Type Department Care Team ([facility] Contact Info) Description 06/26/2022 Abstract [facility] MEDICINE [address] [place] [address] [phone] Maddie Kim MD [address] [place] [address] [phone] Social History Tobacco Use Types Packs/Day Years [...] Upcoming Encounters Date Type Department Care Team ([facility] Contact Info) Description 07/01/2024 11:30 AM EDT Telemedicine [facility] MEDICINE 230 [place] [address] Maddie Kim MD 230 [place] [address] documented as of this encounter Visit Diagnoses Not on filedocumented in this encounter Additional Health Concerns Assessment Noted Time PHQ-9 Depression Total Score: 0 05/30/19 23 3:26 PM EDT documented as of this encounter Care Teams Hospital Scientist Relationship Specialty Start Date End Date Maddie Kim MD 230 [place] [address] PCP - General Family Medicine 07/12/20 Willie Gage 01/17/22 documented as of this encounter
--- OUTSIDE RECORDS SUMMARY | 2024-04-17 18:24 | XMS_ITS | Encounter Summary ---
Author Organization [employer] Address [address] [place] [address] 7t [place] [address] Care Team Providers Care Bearing Ring Assembler Name Role Phone Maddie Kim MD Primary Care Provider [phone] Encounter Details Date Type Department Care Team ([facility] Contact Info) Description 03/30/2022 Abstract [facility] MEDICINE [address] [place] [address] [phone] Maddie Kim MD [address] [place] [address] [phone] Social History Tobacco Use Types Packs/Day Years [...] Info) Description 07/01/2024 11:30 AM EDT Telemedicine [facility] MEDICINE [address] [place] [address] [phone] Maddie Kim MD [address] [place] [address] [phone] documented as of this encounter Visit Diagnoses Not on filedocumented in this encounter Care Teams Bearing Ring Assembler Relationship Specialty Start Date End Date Maddie Kim MD 230 [place] [address] PCP - General Family Medicine 07/12/20 Willie Gage 01/17/22 documented as of this encounter
--- OUTSIDE RECORDS SUMMARY | 2024-04-17 18:24 | XMS_ITS | Encounter Summary ---
Author Organization [email or web address] Address 75 [facility] 7t [place] [address] Care Team Providers Care Eyewear Manufacturing Tech Name Role Phone Maddie Kim MD Primary Care Provider [phone] Reason for Visit * Reason Comments Med Refill Encounter Details Date Type Department Care Team ([facility] st Contact Info) Description 03/18/2023 Refill [facility] [address] [place] [address] [phone] Maddie Kim MD [address] [place] [address] [phone] Social History Tobacco Use Types Packs/Day Years [...] 07/01/2024 11:30 AM EDT Telemedicine [facility] MEDICINE [address] [place] [phone] Maddie Kim MD 230 [place] [address] documented as of this encounter Visit Diagnoses Not on filedocumented in this encounter Additional Health Concerns Assessment Noted Time PHQ-9 Depression Total Score: 0 05/30/19 23 3:26 PM EDT documented as of this encounter Care Teams Eyewear Manufacturing Tech Relationship Specialty Start Date End Date Maddie Kim MD [address] [place] [address] PCP - General Family Medicine 07/12/20 Willie Gage 01/17/22 documented as of this encounter
--- OUTSIDE RECORDS SUMMARY | 2024-04-17 18:24 | XMS_ITS | Encounter Summary ---
Author Organization [employer] Address 75 [facility] 7t [place] [address] Care Team Providers Care Transmission System Operator Name Role Phone Maddie Kim MD Primary Care Provider [phone] Encounter Details Date Type Department Care Team ([facility] st Contact Info) Description 01/02/2024 Orders Only [facility] MEDICINE 230 [place], [place] [phone] Maddie Kim MD 230 [place], [place] [phone] Social History Tobacco Use Types Packs/Day Years [...] EDT Telemedicine [facility] MEDICINE 230 [place] [address] Maddie Kim MD 230 [place] [address] documented as of this encounter Visit Diagnoses Not on filedocumented in this encounter Additional Health Concerns Assessment Noted Time PHQ-9 Depression Total Score: 3 06/15/19 24 11:48 AM EDT documented as of this encounter Care Teams Transmission System Operator Relationship Specialty Start Date End Date Maddie Kim MD 230 [place] [address] PCP - General Family Medicine 07/12/20 Willie Gage 01/17/22 documented as of this encounter
--- OUTSIDE RECORDS SUMMARY | 2024-04-17 18:24 | XMS_ITS | Encounter Summary ---
Author Organization [employer] Address [address] [place] [address] 7t [place] [address] Care Team Providers Care Outbound Sales Agent Name Role Phone Maddie Kim MD Primary Care Provider [phone] Reason for Visit * Reason Onset Date Comments Hospital Follow-up 03/28/2024 Encounter Details Date Type Department Care Team ([facility] Contact Info) Description 03/28/2024 Telephone [facility] MEDICINE 230 [place], [place] [phone] Maddie Kim MD 230 [place], [place] [phone] Hospital Follow-up Social History Tobacco Use Types [...] date: 03/27/24 Diagnosed: Hyponatremia *Send message to [place] Clinical Care Coordinators documented in this encounter Plan of Treatment Upcoming Encounters Date Type Department Care Team (Late st Contact Info) Description 07/01/2024 11:30 AM EDT Telemedicine [facility] MEDICINE [address] [place] [phone] Maddie Kim MD [address] [place] [address] documented as of this encounter Visit Diagnoses Not on filedocumented in this encounter Additional Health Concerns Assessment Noted Time PHQ-9 Depression Total Score: 3 06/15/19 24 11:48 AM EDT documented as of this encounter Care Teams Outbound Sales Agent Relationship Specialty Start Date End Date Maddie Kim MD [address] [place] [address] PCP - General Family Medicine 07/12/20 Willie Gage 11/29/22 documented as of this encounter
--- OUTSIDE RECORDS SUMMARY | 2024-04-17 18:24 | XMS_ITS | Encounter Summary ---
Author Organization [employer] Address [address] [place] [address] 7t [place] [address] Care Team Providers Care Wash Tub Machine Operator Name Role Phone Maddie Kim MD Primary Care Provider [phone] Reason for Visit * Reason Onset Date Comments FYI 03/28/2024 Encounter Details Date Type Department Care Team ([facility] Contact Info) Description 03/28/2024 Telephone [facility] MEDICINE 230 [place], [place] [phone] Maddie Kim MD 230 [place], [place] [phone] Social History Tobacco Use Types Packs/Day Years [...] Gage stating that Pt was seen at [facility] and she also said that they took pt off Med hydroCHLOROthiazide (HYDRODiuril) 25 MG tablet If any questions contact Lauren at [phone] documented in this encounter Plan of Treatment Upcoming Encounters Date Type Department Care Team (Late st Contact Info) Description 07/01/2024 11:30 AM EDT Telemedicine [facility] MEDICINE 230 [place] [address] Maddie Kim MD [address] [place] [address] documented as of this encounter Visit Diagnoses Not on filedocumented in this encounter Additional Health Concerns Assessment Noted Time PHQ-9 Depression Total Score: 3 06/15/19 24 11:48 AM EDT documented as of this encounter Care Teams Wash Tub Machine Operator Relationship Specialty Start Date End Date Maddie Kim MD 230 [place] [address] PCP - General Family Medicine 07/12/20 Willie Gage 01/17/22 documented as of this encounter
--- OUTSIDE RECORDS SUMMARY | 2024-04-17 18:24 | XMS_ITS | Encounter Summary ---
Author Organization [employer] Address [address] [place] [address] 7t [place] [address] Care Team Providers Care Peoplesoft Hcm Developer Name Role Phone Maddie Kim MD Primary Care Provider [phone] Reason for Visit * Reason Onset Date Comments No Show 04/02/2024 Encounter Details Date Type Department Care Team ([facility] Contact Info) Description 04/02/2024 Telephone [facility] MEDICINE 230 [place], [place] [phone] Maddie Kim MD 230 [place], [place] [phone] No Show Social History Tobacco Use Types [...] Info) Description 07/01/2024 11:30 AM EDT Telemedicine [facility] MEDICINE 230 [place] [address] Maddie Kim MD 230 [place] [address] documented as of this encounter Visit Diagnoses Not on filedocumented in this encounter Additional Health Concerns Assessment Noted Time PHQ-9 Depression Total Score: 3 06/15/19 24 11:48 AM EDT documented as of this encounter Care Teams Peoplesoft Hcm Developer Relationship Specialty Start Date End Date Maddie Kim MD 230 [place] [address] PCP - General Family Medicine 07/12/20 Willie Gage 01/17/22 documented as of this encounter
--- OUTSIDE RECORDS SUMMARY | 2024-04-17 18:24 | XMS_ITS | Encounter Summary ---
Author Organization [employer] Address 75 [facility] 7t [place] [address] Care Team Providers Care Design Lead Name Role Phone Maddie Kim MD Primary Care Provider [phone] Reason for Visit * Reason Onset Date Comments Med Refill 03/19/2023 Encounter Details Date Type Department Care Team ([facility] Contact Info) Description 03/19/2023 Telephone [facility] MEDICINE 230 [place] [address] Maddie Kim MD 230 [place], [place] [phone] Med Refill Social History Tobacco Use Types [...] Pt agrees. MD Maddie Saravia RN; [facility] Team Nurses Caller: Unspecified (2 weeks ago) I wrote her a work excuse extending her time for remote work until 04/05/23 * Telephone Encounter - Maddie Crawford RN - 04/02/2023 3:02 PM EST Images from the original note were not included. Triage call regarding Pt portal message below. Pt continues to have symptoms of Covid. Pt was seen in [facility] 03/29/[address] Gonzalez and dx [...] better sooner [facility]. Advised Pt will send this request [...] - Diagnosed With COVID-19 by Doctor (or CAN PATCHER/PA) and Mild Symptoms * General Care Advice for COVID-19 Symptoms * Humidifier * Coughing Spells * Pain and Fever Medicines * Mild Stomach and Intestinal Symptoms During COVID-19 Illness [facility] Clinial Support (supporting Lorrie Alaniz [...] Info) Description 07/01/2024 11:30 AM EDT Telemedicine [facility] MEDICINE [address] [place] [address] Maddie Kim MD [address] [place] [address] documented as of this encounter Visit Diagnoses Not on filedocumented in this encounter Additional Health Concerns Assessment Noted Time PHQ-9 Depression Total Score: 0 05/30/19 23 3:26 PM EDT documented as of this encounter Care Teams Design Lead Relationship Specialty Start Date End Date Maddie Kim MD 230 [place] [address] PCP - General Family Medicine 07/12/20 Willie Gage 01/17/22 documented as of this encounter
--- OUTSIDE RECORDS SUMMARY | 2024-04-17 18:24 | XMS_ITS | Encounter Summary ---
Author Organization [employer] Address 75 [facility] 7t [place] [address] Care Team Providers Care Consulting Solution Director Name Role Phone Maddie Kim MD Primary Care Provider [phone] Reason for Visit * Reason Onset Date Comments Med Refill 04/12/2023 Encounter Details Date Type Department Care Team ([facility] st Contact Info) Description 04/12/2023 Refill [facility] MEDICINE 230 [place], [place] [phone] Maddie Kim MD 230 [place], [place] [phone] Chronic bilateral low back pain without sciatica [...] Description 07/01/2024 11:30 AM EDT Telemedicine [facility] MEDICINE 230 [place] [address] Maddie Kim MD 230 [place] [address] documented as of this encounter Visit Diagnoses Diagnosis Chronic bilateral low back pain without sciatica documented in this encounter Additional Health Concerns Assessment Noted Time PHQ-9 Depression Total Score: 0 05/30/19 23 3:26 PM EDT documented as of this encounter Care Teams Consulting Solution Director Relationship Specialty Start Date End Date Maddie Kim MD 230 [place] [address] PCP - General Family Medicine 07/12/20 Willie Gage 01/17/22 documented as of this encounter
--- OUTSIDE RECORDS SUMMARY | 2024-04-17 18:24 | XMS_ITS | Clinical Summary ---
Author Organization [employer] Address [address] [place] [address] 7t [place] [address] Care Team Providers Care Manager Poker Name Role Phone Maddie Kim MD Primary Care Provider [phone] Allergies Active Allergy Reactions Criticality Noted Date [...] (02/23/2023 8:52 AM EST): Will refer to [facility] hand surgeon History of gastrectomy 10/06/2022 Assessment & Plan (04/02/2024 4:07 PM EST): 2009 gastric sleeve Assessment & Plan (10/06/2022 7:52 AM EDT): Refer to [facility] weight loss program for discussion of possible [...] sleeve? I think discuss portion sizes with welder assistant Assessment & Plan (01/29/2022 10:40 AM EST): [...] re-iterated that she can reach us through [employer] if she needs anything Assessment & Plan [...] Department Care Team Description 04/14/2024 Orders Only [facility] [address] [place] [address] [phone] Maddie Kim MD 04/10/2024 Telephone [facility] [address] [place] [address] [phone] Maddie Kim MD CRITICAL RESULT CALL 04/09/2024 Refill [facility] [place] [address] Maddie Kim MD 04/02/2024 3:30 PM EST Office Visit [facility] [place] [address] Maddie Kim MD Schizoaffective disorder, bipolar type (CMS/HCC) (Primary Dx); Opioid abuse (CMS/[facility]); Class 3 severe obesity with serious comorbidity and body mass index (BMI) of 40.0 to 44.9 in adult, unspecified obesity type (CMS/HCC); Dietary counseling; Exercise counseling; History of gastrectomy; Tachycardia 04/02/2024 Travel 04/02/2024 Telephone [facility] [address] [place] [address] 24096 Maddie Kim MD No Show 03/31/2024 Telephone [facility] [address] [place] [address] [phone] Maddie Kim MD Call Back Request 03/28/2024 Telephone [facility] [address] [place] [address] [phone] Maddie Kim MD FYI 03/28/2024 Patient Outreach [facility] [address] [place] [address] [phone] Maddie Kim MD Transition Of Care (Tcm) (HDF- Unscheduled- PATIENT REQ. A HDF WITHIN 7 DAYS AND ONLY WITH HER PCP) 03/28/2024 Telephone [facility] [address] [place] [address] [phone] Maddie Kim MD Hospital Follow-up 03/24/2024 Telephone [facility] [address] [place] [address] 84020 Maddie Kim MD 03/24/2024 Telephone [facility] [address] [place] [address] 47092 Sheila Rene, RN NTTS 03/20/2024 Telephone [facility] [address] [place] [phone] NUTRITION APPT REQUEST 03/04/2024 Telephone [facility] [address] [place] [address] [phone] Maddie Kim MD verbal order 03/04/2024 Refill [facility] [address] [place] [address] [phone] Maddie Kim MD 02/22/2024 Telephone [facility] [address] [place] [address] [phone] Maddie Kim MD 02/22/2024 Orders Only [facility] [address] [facility] [place] [address] Maddie Kim MD 02/21/2024 Telephone [facility] [address] [place] [address] Maddie Kim MD FYI 02/21/2024 Refill [facility] [address] [place] [address] Maddie Kim MD 02/15/2024 Telephone [facility] [address] [place] [address] Maddie Kim MD FYI 02/15/2024 Refill [facility] [address] [place] [address] Maddie Kim MD 01/22/2024 Orders Only GENERIC [...] Description 07/01/2024 11:30 AM EDT Telemedicine [facility] [address] [place] [address] Maddie Kim MD [address] [place] [address] Health Maintenance Due Date Last Done Comments [...] Procedure Name Priority Date/Time Associated Diagnosis Comments IMMUNOFIXATION, SERUM Routine 04/14/2024 12:47 PM EST CORTISOL RANDOM Routine 04/14/2024 12:47 PM EST FERRITIN Routine 04/14/2024 12:47 PM EST IRON AND TOTAL IRON BINDING CAPACITY Routine 04/14/2024 12:47 PM EST BASIC METABOLIC PANEL Routine 04/14/2024 12:47 PM EST CBC WITH AUTO DIFFERENTIAL Routine 04/14/2024 12:47 PM EST OSMOLALITY (U) Routine 04/14/2024 12:45 PM EST SODIUM W/O CREATININE, RANDOM URINE Routine 04/14/2024 12:45 PM EST CBC WITH AUTO DIFFERENTIAL Routine 04/02/2024 4:26 [...] Recently Relevant to Health Maintenance Results * Cortisol Random (04/14/2024 12:47 PM EST) Cortisol Random 5.7 ug/dL [facility] Comment:Reference Range*: Be fore 10 am 6.2-19.4 ug/dL After 5 pm 2.3-11.9 ug/dL*Please interpret above results accordingly.This test was performed using the العلي chemiluminescentmethod. Values obtained from different assay methods cannotbe used interchangeably.Patients receiving fludrocortisone, prednisolone orprednisone may show artificially elevated cortisol valuesdue to cross-reactivity. 04/14/2024 12:4 7 PM EST 04/14/2024 12:47 PM EST us Generic External Data Provider LAB BLOOD ORDERAB LES Final Result [facility] [address] [place] [phone] * (ABNORMAL) CBC auto differential (04/14/2024 12:47 PM EST) Only the most recent of2 resultswithin the time period is included. White Blood Count 6.5 4.8 - 10.8 X10*3/uL [facility] Red Blood Count 3.74(L) 4.20 - 5.50 X10*6/uL [facility] Hemoglobin 9.4(L) 12.0 - 16.0 g/dl [facility] Hematocrit 29.6(L) 37.0 - 47.0 % [facility] Mean Corpuscular Volume 79.1(L) 80.0 - 98.0 fL [facility] Mean Corpuscular Hemoglobin 25.1(L) 27.0 - 33.0 pg [facility] Mean Corpuscular HGB Conc 31.8 31.0 - 35.0 g/dl [facility] Red Cell Distribution Width 16.1(H) 11.0 - 16.0 % [facility] Platelet Count 530(H) 160 - 400 X10*3/uL [facility] Mean Platelet Volume 9.6 9.4 - 12.3 fL [facility] Neutrophils Percent Auto 56.2 45 - 73 % [facility] Imm Gran Pct Auto 0.6(H) 0.0 - 0.4 % [facility] Lymphocytes Percent Auto 32.5 20 - 40 % [facility] Monocytes Percent Auto 8.8 2 - 11 % [facility] Eosinophils Percent Auto 1.4 0 - 4 % [facility] Basophils Percent Auto 0.5 0 - 2 % [facility] NRBC Pct Auto 0.0 0.0 - 0.2 /100WBC [facility] Neutrophils Absolute Auto 3.7 2.0 - 8.3 x10*3/uL [facility] Imm Gran Abs Auto 0.04(H) 0.00 - 0.03 X10*3/uL [facility] Lymphocytes Absolute Auto 2.1 1.2 - 4.9 X10*3/uL [facility] Monocytes Absolute Auto 0.6 0.1 - 1.2 X10*3/uL [facility] Eosinophils Absolute Auto 0.1 0.0 - 0.4 X10*3/uL [facility] Basophils Absolute Auto 0.0 0.0 - 0.2 X10*3/uL [facility] NRBC Abs Auto 0.000 0.0 - 0.012 X10*3/uL [facility] 04/14/2024 12:4 7 PM EST 04/14/2024 12:47 PM EST Gil Brewer MD LAB BLOOD ORDERABLES Final Resul t Performing Organization Address [facility] Co de Phone Number [facility] [address] [place] [address] [phone] * Iron And Total Iron Binding Capacity (04/14/2024 12:47 PM EST) Iron 77 30 - 160 mcg/dL [facility] Total Iron Binding Capacity 339 228 - 428 mcg/dL [facility] Percent Iron Saturation 23 15 - 50 % [facility] Unsaturated Iron Binding 262 ug/dL [facility] 04/14/2024 12:4 7 PM EST 04/14/2024 12:47 PM EST Gil Brewer MD LAB BLOOD ORDERABLES Final Resul t Performing Organization Address [facility] de Phone Number [facility] [address] [place] [address] [phone] * (ABNORMAL) Immunofixation, Serum (04/14/2024 12:47 PM EST) IMMUNOGLOBULIN G 1545 600 - 1640 mg/dL [facility] IMMUNOGLOBULIN A 197 47 - 310 mg/dL [facility] Immunoglobulin M 46(A) 50 - 300 mg/dL [facility] Comment:THIS TEST WAS PERFOR MED AT:[facility] [place] [phone] PARKINSON MD Immunofixation Result SEE NOTE [facility] Comment:Normal pattern. No m onoclonal proteins detected. 04/14/2024 12:4 7 PM EST 04/14/2024 12:47 PM EST Generic External Data Provider LAB BLOOD ORDERAB LES Final Result Performing Organization Address City/[facility] Co de Phone Number [facility] [address] [place] [address] [phone] * Ferritin (04/14/2024 12:47 PM EST) Ferritin 61 10 - 250 ng/mL [facility] 04/14/2024 12:4 7 PM EST 04/14/2024 12:47 PM EST us Gil Brewer MD LAB BLOOD ORDERABLES Final Resul t Performing Organization Address [facility] Phone Number [facility] [address] [place] [address] [phone] * (ABNORMAL) Basic Metabolic Panel (04/14/2024 12:47 PM EST) Only the most recent of2 resultswithin the time period is included. Sodium 139 135 - 145 mmol/L [facility] Potassium 4.3 3.3 - 5.1 mmol/L [facility] Chloride 104 96 - 108 mmol/L [facility] Carbon Dioxide 27 22 - 29 mmol/L [facility] Anion Gap 12 12 - 20 [facility] Urea Nitrogen (BUN) 7(L) 9 - 16 mg/dL [facility] Creatinine, Serum 0.69 0.5 - 1.4 mg/dL [facility] Estimated Glomerular Filt Rate >60 [facility] Comment:Chronic Kidney Disea se: Estimated GFR < 60 mL/min/1.46a6Gwdbfn Kidney Disease: Estimated GFR < 15 mL/min/1.73m2 Glucose 84 60 - 115 mg/dL [facility] Calcium 9.5 8.4 - 10.2 mg/dL [facility] 04/14/2024 12:4 7 PM EST 04/14/2024 12:47 PM EST us Gil Brewer MD LAB BLOOD ORDERABLES Final Resul t Performing Organization Address City/[facility] Co de Phone Number [facility] [address] [place] [address] [phone] * Sodium Without creatinine, Random Urine (04/14/2024 12:45 PM EST) Sodium Urine Random 47.0 mmol/L [facility] 04/14/2024 12:4 5 PM EST 04/14/2024 1:55 PM EST us Generic External Data Provider LAB BLOOD ORDERAB LES Final Result Performing Organization Address City/[facility]/ZIP Co de Phone Number [facility] [address] [place] [address] [phone] * (ABNORMAL) Osmolality, Urine (04/14/2024 12:45 PM EST) OSMOLALITY URINE 212(L) 373 - 1,093 mosm/kg [facility] 04/14/2024 12:4 5 PM EST 04/14/2024 1:55 PM EST us Generic External Data Provider LAB URINE ORDERAB LES Final Result Performing Organization Address [facility]/ZIP Co de Phone Number [facility] [address] [place] [address] [phone] * TSH W/Reflex to FT4 (04/02/2024 4:26 PM EST) TSH reflex Free T4 1.46 0.32 - 4.0 uIU/mL [facility] Blood Venous blood specimen / Unknown 04/02/2024 4:26 PM EST 04/02/2024 5:31 PM EST us Maddie Kim MD LAB BLOOD ORDERABLES Final Res ult Performing Organization Address City/[facility]/ZIP Co de Phone Number [facility] [address] [place] [address] [phone] * Pap Smear (01/22/2024 8:03 AM EST) 01/22/2024 8:03 AM EST 01/23/2024 11:00 AM EST Narrative [facility] - 01/25/2024 12:58 PM EST ----- ------- Name: Atiya Esparza ?Age/Sex: 48/F ? : 1975 Unit#: [id number] ?? Attend Dr: John Schmidt MD ?Re01/22/24 ?Status: DEP REF ? Location: HO.LNP ?Disch: ? ----- ------- SPEC : [id number] ?RECD: 01/23/24-1099 ? STATUS: ??SOUT ? REQ NUM: [id number] ? MAMADOU: 01/22/24-802 ? SUBM DR: John Schmidt MD ? ENTERED: ??01/23/24-1119 ?SP TYPE: Pap Smr ?OTHR DR: Maddie [...] Copies To: ?? Maddie Kim ?? [address] ?? [place] [address] ?? [phone] ?? John Schmidt MD ?? [facility] ?? [address] [place] [address] [address] ?? [place] [address] ?? [phone] ----- ------- Signed (signature on file) YASSINE Garcia (ASCP) 01/25/24 1258 ? ----- ------- ? END OF REPORT ? us Generic External Data Provider LAB CYTOLOGY HARJEET AVALOS Final Result [facility] [address] [place] [phone] * Lipid Panel, Standard (09/08/2023 8:43 AM EDT) Triglycerides 57 <150 mg/dL [facility] Comment:Desirable Triglyceri de: less than 150 mg/dLBorderline High Triglyceride 150-199 mg/dLHigh Triglyceride: 200-499 mg/dLVery High Triglyceride: greater than or equal to 5OO mg/dL Cholesterol 158 <200 mg/dL [facility] Comment:Desirable Cholestero l: less than 200 mg/dLBorderline High Cholesterol: 200-239 mg/dLHigh Cholesterol: greater than 239 mg/dL LDL Cholesterol Calculated 87 <100 mg/dL [facility] Comment:Desirable LDL: less than 100 mg/dLNear Optimal/Above Optimal LDL: 110- 129 mg/dLBorderline High LDL: 130-159 mg/dLHigh LDL: 160-189 mg/dLVery High LDL: greater than or equal to 190 mg/dL HDL Cholesterol 60 >40 mg/dL [facility] Comment:Desirable HDL: great er than 40 mg/dL Note: This HDL assay may give artificially low results in patients with liver disease. Blood Venous blood specimen / Unknown 09/08/2023 8:43 AM EDT 09/08/2023 11:09 AM EDT us Maddie Kim MD LAB BLOOD ORDERABLES Final Res ult [facility] [address] [facility] [place] [address] [phone] * BI Mammogram Screening Tomosynthesis Bilateral (05/04/2023 4:02 PM EDT) Anatomical Region Laterality Modality Breast Bilateral Mammography 05/04/2023 4:02 PM EDT Narrative 05/26/2023 3:06 PM EDT ? [facility] [place] ? [address] ?[place] [address] ? Mammography Report ? Signed ? Patient: Macon,Atiya ?MR#: [id number] ? : 1975 ?Acct:[id number] ? Age/Sex: 47 / F ?ADM Date: 05/04/23 ? Loc: HO.MAMMO ? Attending Dr: Maddie Kim MD ? Ordering Physician: Maddie Kim ?Results: 1Negative ? Date of Service: 05/04/23 ?Follow Up: 1 Year From Orig ?? inal Mammogram ? Procedure(s): MM tomosynthesis screening BI ?? Accession Number(s): [id number] ? cc: Maddie Kim ? EXAMINATION: ?? [...] 1503 ? DD/ 1602 ? TD/TT: ? Personal Computer Network Analyst: ? Procedure Note John Paul, Image - 05/26/2023 [facility] [address] [place] [address] Dr. [place], [place] [address] Mammography Report Signed Patient: Zain Esparza#: [id number] : 1975Acct:[id number] Age/Sex: 47 / FADM Date: 05/04/23 Loc: MICHAEL Attending Dr: Maddie Kim MD Ordering Physician: Jaja Kimults: 1Negative Date of Service: 05/04/23Follow Up: 1 Year From [facility] Mammogram Procedure(s): MM tomosynthesis screening BI Accession Number(s): [id number] cc: Maddie Kim EXAMINATION: MM SCREENING DIGITAL [...] in OV> 05/26/23 1503 DD/ 1602 TD/TT: Personal Computer Network Analyst: Result [facility] Maddie Kim MD [facility] BI PROCEDURES Final Result * HPV GENOTYPES 16,18/45 (12/20/2020 12:00 AM EDT) HPV 16 RNA NOT DETECTED NOT DETECTED [facility] [facility] [employer] [facility] HPV 18/45 RNA NOT DETECTED NOT DETECTED [facility] Comment: Methodology: Locomotive Electrician Mediated Amplification The analytical performance characteristics of this assay have been determined by [employer]. The modifications have not been cleared or approved by the FDA. This assay has been validated pursuant to the CLIA regulations and is used for clinical purposes. 12/20/2020 Maddie Kim MD LAB BLOOD ORDERABLES Final Res ult [facility] [address] from Last 3 Months or Most Recently Relevant to Health Maintenance [place] [address] [address] - [employer] Care Teams Manager Poker Relationship Specialty Start Date End Date Maddie Kim MD [address] [place] [phone] PCP - General Family Medicine 07/12/20 Willie Caring 01/17/22
--- OUTSIDE RECORDS SUMMARY | 2024-04-17 18:24 | XMS_ITS | Encounter Summary ---
Author Organization [employer] Address [address] [facility] [address]t [place] [address] Care Team Providers Care Bag Sorter Name Role Phone Maddie Kim MD Primary Care Provider [phone] Reason for Visit * Reason Comments Med Refill Encounter Details Date Type Department Care Team ([facility] st Contact Info) Description 04/12/2023 Refill [facility] [address] [place] [address] [phone] Isac Gonzalez MD [address] [place], [place] [phone] Chronic bilateral low back pain without sciatica [...] EDT Telemedicine [facility] [address] [place] [phone] Maddie Kim MD [address] [place] [address] documented as of this encounter Visit Diagnoses Diagnosis Chronic bilateral low back pain without sciatica documented in this encounter Additional Health Concerns Assessment Noted Time PHQ-9 Depression Total Score: 0 05/30/19 23 3:26 PM EDT documented as of this encounter Care Teams Bag Sorter Relationship Specialty Start Date End Date Maddie Kim MD [address] [place] [phone] PCP - General Family Medicine 07/12/20 Willie Gage 01/17/22 documented as of this encounter
--- OUTSIDE RECORDS SUMMARY | 2024-04-17 18:24 | XMS_ITS | Encounter Summary ---
Author Organization [employer] Address [address] [place] [address] 7t [place] [address] Care Team Providers Care Clinical Rehabilitation Coordinator Name Role Phone Maddie Kim MD Primary Care Provider [phone] Reason for Referral * Consultation (Routine) - Authorized Specialty Diagnoses / Procedures Referred By Sindi mejia Referred To Contact Cardiology Diagnoses Tachycardia Maddie Kim MD [address] [place] [phone] Phone: tel: fax: [facility] Referral ID Status Reason Start Date Expiration Date Visits Requested Visits Authorized [id number] Authorized Specialty Services Required 04/07/2024 04/07/2025 1 1 Reason for Visit * Reason Comments Follow-up Encounter Details Date Type Department Care Team (Latest Contact Info) Description 04/02/2024 3:30 PM EST Office Visit [facility] [address] [place] [address] [phone] Maddie Kim MD [address] [place] [address] [phone] Schizoaffective disorder, bipolar type (CMS/HCC) (Primary Dx); [...] hospital discharge followup. Was recently hospitalized at [facility] for two days to replete sodium, with hyponatremia to 119 on hydrochlorothiazide and Invega, quetiapine. Acute Concerns: BP off hydrochlorothiazide is ok <140/90 regularly, though she just in the ER overnight for elevated BP and inappropriate tachycardia after emotional argument. Resolved with Ativan. Recheck BMP today shows ongoing hyponatremia of 132 Currently attending IOP from 9-1230 M-F at [facility], wants to go for few more weeks [...] 04/02/2024 11:00 AM Maddie Kim MD MEDICINE [facility] 04/18/2024 9:[address] DIAB NUTR [facility] Hospital Course and Medication Reconciliation [facility] (03/25/24-03/27/24) Patient presented for evaluation of hypernatremia [...] daily Changed: none Discontinued: hydrochlorothiazide Preferred Pharmacy: [facility] [address] [facility] [address] [facility] [phone] Pharmacist Notes Discrepancies: No recent fill found for: Vit B12 (last filled 09/02/23, 90 ds), Folic acid (lf 10/11/23), thiamine (lf 10/11/23), calcium carb (no fill found) Immunizations The MDIS database was reconciled and patient is indicated [...] Social History Social History Narrative Lives in [place] Has daughter in the area who is [...] Rfl: Vivitrol injection, , Disp: , Rfl: Macanese Translation: Patient is bilingual and declines translation [...] Info) Description 07/01/2024 11:30 AM EDT Telemedicine [facility] [address] [place] [phone] Maddie Kim MD [address] [place] [address] Scheduled Referrals Name Type Priority [...] Blood Count 14.5(H) 4.8 - 10.8 X10*3/uL [facility] Red Blood Count 4.19(L) 4.20 - 5.50 X10*6/uL [facility] Hemoglobin 10.7(L) 12.0 - 16.0 g/dl [facility] Hematocrit 31.5(L) 37.0 - 47.0 % [facility] Mean Corpuscular Volume 75.2(L) 80.0 - 98.0 fL [facility] Mean Corpuscular Hemoglobin 25.5(L) 27.0 - 33.0 pg [facility] Mean Corpuscular HGB Conc 34.0 31.0 - 35.0 g/dl [facility] Red Cell Distribution Width 13.9 11.0 - 16.0 % [facility] Platelet Count 242 160 - 400 X10*3/uL [facility] Mean Platelet Volume 10.3 9.4 - 12.3 fL [facility] Neutrophils Percent Auto 88.6(H) 45 - 73 % [facility] Imm Gran Pct Auto 0.5(H) 0.0 - 0.4 % [facility] Lymphocytes Percent Auto 3.9(L) 20 - 40 % [facility] Monocytes Percent Auto 6.7 2 - 11 % [facility] Eosinophils Percent Auto 0.2 0 - 4 % [facility] Basophils Percent Auto 0.1 0 - 2 % [facility] NRBC Pct Auto 0.0 0.0 - 0.2 /100WBC [facility] Neutrophils Absolute Auto 12.8(H) 2.0 - 8.3 x10*3/uL [facility] Imm Gran Abs Auto 0.07(H) 0.00 - 0.03 X10*3/uL [facility] Lymphocytes Absolute Auto 0.6(L) 1.2 - 4.9 X10*3/uL [facility] Monocytes Absolute Auto 1.0 0.1 - 1.2 X10*3/uL [facility] Eosinophils Absolute Auto 0.0 0.0 - 0.4 X10*3/uL [facility] Basophils Absolute Auto 0.0 0.0 - 0.2 X10*3/uL [facility] NRBC Abs Auto 0.000 0.0 - 0.012 X10*3/uL [facility] Blood Venous blood specimen / Unknown 04/02/2024 4:26 PM EST 04/02/2024 5:31 PM EST Maddie Kim MD LAB BLOOD ORDERABLES Final Res ult Performing Organization Address [facility] de Phone Number [facility] [address] [place] [address] [phone] * TSH W/Reflex to FT4 (04/02/2024 4:26 PM EST) TSH reflex Free T4 1.46 0.32 - 4.0 uIU/mL [facility] Blood Venous blood specimen / Unknown 04/02/2024 4:26 PM EST 04/02/2024 5:31 PM EST Maddie Kim MD LAB BLOOD ORDERABLES Final Res ult Performing Organization Address [facility] Co de Phone Number [facility] [address] [place] [phone] documented in this encounter Visit Diagnoses [...] as of this encounter Care Teams Clinical Rehabilitation Coordinator Relationship Specialty Start Date End Date Maddie Kim MD [address] [place] [phone] PCP - General Family Medicine 07/12/20 Willie Gage 01/17/22 documented as of this encounter
--- OUTSIDE RECORDS SUMMARY | 2024-04-17 18:24 | XMS_ITS | Encounter Summary ---
Author Organization [employer] Address 75 [facility] 7t [place] [address] Care Team Providers Care Used Car Renovator Name Role Phone Maddie Kim MD Primary Care Provider [phone] Reason for Visit * Reason Comments Med Refill Encounter Details Date Type Department Care Team ([facility] st Contact Info) Description 04/05/2023 Refill [facility] [address] [place] [address] [phone] Isac Gonzalez MD [address] [place] [address] [phone] Chronic bilateral low back pain without sciatica [...] - 04/06/2023 12:46 PM EST TC to [facility] pharmacy, T3 RX written 03/29/23 for [...] [facility] [address] [place] [address] Maddie Kim MD [address] [place] [address] documented as of this encounter Visit Diagnoses Diagnosis Chronic bilateral low back pain without sciatica documented in this encounter Additional Health Concerns Assessment Noted Time PHQ-9 Depression Total Score: 0 05/30/19 23 3:26 PM EDT documented as of this encounter Care Teams Used Car Renovator Relationship Specialty Start Date End Date Maddie Kim MD [address] [place] [address] PCP - General Family Medicine 07/12/20 Willie Gage 01/17/22 documented as of this encounter
--- OUTSIDE RECORDS SUMMARY | 2024-04-17 18:24 | XMS_ITS | Encounter Summary ---
Author Organization [employer] Address 75 [facility] 7t [place] [address] Care Team Providers Care Digital Recruiter Name Role Phone Maddie Kim MD Primary Care Provider [phone] Reason for Visit * Reason Comments Med Refill Encounter Details Date Type Department Care Team ([facility] st Contact Info) Description 04/12/2023 Refill [facility] [address] [place] [address] [phone] Isac Gonzalez MD [address] [place], [place] [phone] Chronic bilateral low back pain without sciatica [...] Info) Description 07/01/2024 11:30 AM EDT Telemedicine [facility] [address] [place] [address] Maddie Kim MD [address] [place] [address] documented as of this encounter Visit Diagnoses Diagnosis Chronic bilateral low back pain without sciatica documented in this encounter Additional Health Concerns Assessment Noted Time PHQ-9 Depression Total Score: 0 05/30/19 23 3:26 PM EDT documented as of this encounter Care Teams Digital Recruiter Relationship Specialty Start Date End Date Maddie Kim MD [address] [place] [address] PCP - General Family Medicine 07/12/20 Willie Gage 01/17/22 documented as of this encounter
--- OUTSIDE RECORDS SUMMARY | 2024-04-17 18:24 | XMS_ITS | Encounter Summary ---
Author Organization [employer] Address 75 [facility] 7t [place] [address] Care Team Providers Care Liquor Maker Name Role Phone Maddie Kim MD Primary Care Provider [phone] Reason for Visit * Reason Onset Date Comments Med Refill 05/10/2023 Encounter Details Date Type Department Care Team ([facility] st Contact Info) Description 05/10/2023 Refill [facility] [address] [place], [place] [phone] Maddie Kim MD [address] [place], [place] [phone] Chronic bilateral low back pain without sciatica [...] Info) Description 07/01/2024 11:30 AM EDT Telemedicine [facility] [address] [place] [address] Maddie Kim MD [address] [place] [address] documented as of this encounter Visit Diagnoses Diagnosis Chronic bilateral low back pain without sciatica documented in this encounter Additional Health Concerns Assessment Noted Time PHQ-9 Depression Total Score: 0 05/30/19 23 3:26 PM EDT documented as of this encounter Care Teams Liquor Maker Relationship Specialty Start Date End Date Maddie Kim MD [address] [place], [place] [phone] PCP - General Family Medicine 07/12/20 Willie Gage 01/17/22 documented as of this encounter
--- OUTSIDE RECORDS SUMMARY | 2024-04-17 18:24 | XMS_ITS | Data Portability ---
Author Organization [place] [facility] Pamella Flynn - PVT - [facility] Address [address] [place] [address] Care Team Providers Care Narcotics Detective Name Role Phone ALEXIS RANGEL Primary Care [...] By Organization Details Last Modified Time 07/24/2019 [id number] FINAL Reason: GI BLEEDING EXAM# DEPT/EXAM EXAM DATE TIME [id number] CCT - Angio Abd Plevis W-WO Contrast [...] of constipation. Report Read by: ANTONINO WEBSTER [id number] on Jun 06 2019 4:55P Transcribed by: on Jun 06 2019 4:44P Report Electronically Signed by: DR. ANTONINO WEBSTER on: Jun 06 2019 4:55P [id number] [email or web address] Not available 07/24/2019 14:04:23 Reason for Referral None Reported. Problems Name Problem SNOMED Code Status Onset Date Resolution Date Notes Provider Name and Address Organization Details Recorded Time Diarrhea 95392969 Active 2019 MD María Elena Jeo [address], [place], [address], [facility] 0 14:09:16 Hematochezia 448176497 Active 2019 MD María Elena Joe [address], [place], [address], [facility] 0 14:09:25 Problem Notes None recorded. Medical Equipment None Reported. Allergies Allergen ID Allergen Name Allergen Category Reaction Reaction Severity Criticality Documentation Date Start Date Code Code System Note Provider Name and Address Organization Details Recorded Time 55041 Product containin g penicilli n (product) medicatio n Not available Not available Not available 07/24/2019 75214 8001 SNOMED MD María Elena Joe [address], [place], [address], [facility] 0 14:04:50 07975 Dilaudid medicatio n Not available Not available Not available 07/24/2019 33810 3 RxNorm MD María Elena Joe [address], [place], [address], [facility] 0 14:04:55 Medications Name [...] MD [address], [place], [address], [facility] 07/24/2019 14:06:56 What Is Your Level [...] SNOMED-CT Code Diagnosis ICD10 Code Diagnosis Note [id number] Gulshan Lowry MD JYamin - [facility] [address] [place] [address] 07/24/2019 08:51:48 07/28/2019 10:40:36 Hematochezia 082687281 K92.1 Chronic diarrhea 6491402 09 K52.9 Health Concerns Section Related Observation LastModified by Organization Detai ls LastModified Time None Recorded Concern Status LastModified by Organization Details LastModified Time None Recorded Advance Directives Directive None Recorded Payers Encounter Date Sequence Insurance Name Policy Number Policy Fernandez Covered Member ID Fernandez Member ID Guarantor Name 07/24/2019 1 MEDICARE B-[place]: [facility] [employer] At[place] [id number] Atiya [place] 07/24/2019 2 MED[place]: [facility] Atiya Esparza [id number] Atiya Esparza Notes Date Note Type Note Provider Name [...] abdominal pain as well. Gulshan Lowry MD [address] [place] [address],[address], [facility] [place], [address], [facility] 07/24/2019 14:21:54 OBGyn Episode No OBEpisode recorded.
--- OUTSIDE RECORDS SUMMARY | 2024-04-17 18:24 | XMS_ITS | Encounter Summary ---
Author Organization [employer] Address [address] [place] [address] 7t [place] [address] Care Team Providers Care Chief Pilot Name Role Phone Maddie Kim MD Primary Care Provider [phone] Reason for Visit * Reason Onset Date Comments Durable Medical Equipment 03/02/2022 Encounter Details Date Type Department Care Team ([facility] st Contact Info) Description 03/02/2022 Telephone [facility] [address] [place] [phone] Shayna Pritchett, MAJO Durable Medical Equipment Social [...] send to [facility] Please contact pt at [phone] documented in this encounter Plan of Treatment Upcoming Encounters Date Type Department Care Team (Late st Contact Info) Description 07/01/2024 11:30 AM EDT Telemedicine [facility] [address] [place] [address] Maddie Kim MD [address] [place], [place] [phone] documented as of this encounter Visit Diagnoses Not on filedocumented in this encounter Care Teams Chief Pilot Relationship Specialty Start Date End Date Maddie Kim MD [address] [place] [address] PCP - General Family Medicine 07/12/20 Willie Gage 01/17/22 documented as of this encounter
--- OUTSIDE RECORDS SUMMARY | 2024-04-17 18:24 | XMS_ITS | Encounter Summary ---
Author Organization [employer] Address [address] [place] [address] 7t [place] [address] Care Team Providers Care Mobile Application Development Lead Name Role Phone Maddie Kim MD Primary Care Provider [phone] Reason for Referral * Consultation (Routine) - Closed Specialty Diagnoses / Procedures Referred By Sindi mejia Referred To Contact Nutrition Diagnoses Class 2 severe obesity with serious comorbidity and body mass index (BMI) of 39.0 to 39.9 in adult, unspecified obesity type (CMS/HCC) Maddie Kim MD [address] [place] [address] Phone: tel: fax: Referral ID Status Reason Start Date Expiration Date V isits Requested Visits Authorized [id number] Closed Consult and Treat 04/06/2023 04/05/2024 1 1 Encounter Details Date Type Department Care Team (Late st Contact Info) Description 04/06/2023 Orders Only [facility] [address] [place] [address] [phone] Maddie Kim MD [address] [place] [address] Class 2 severe obesity with serious comorbidity [...] Description 07/01/2024 11:30 AM EDT Telemedicine [facility] [address] [place] [address] Maddie Kim MD [address] [place] [address] Scheduled Referrals Name Type Priority Associated Diagnoses [...] EDT Narrative 05/26/2023 3:06 PM EDT ? [facility] ? [address] ?[place], [place] [address] ? Mammography Report ? Signed ? Patient: Isaias,Atiya ?MR#: [id number] ? : 1975 ?Acct:[id number] ? Age/Sex: 47 / F ?ADM Date: 05/04/23 ? Loc: HO.MAMMO ? Attending Dr: Maddie Kim MD ? Ordering Physician: Maddie Kim ?Results: 1Negative ? Date of Service: 05/04/23 ?Follow Up: 1 Year From Orig ?? inal Mammogram ? Procedure(s): MM tomosynthesis screening BI ?? Accession Number(s): [id number] ? cc: Maddie Kim ? EXAMINATION: ?? [...] 1503 ? DD/ 1602 ? TD/TT: ? Supervisor Small Appliance Assembly: ? Procedure Note John Paul, Zoya - 05/26/2023 [facility] [address] [place] [address] Mammography Report Signed Patient: Zain Esparza#: [id number] : 1975Acct:[id number] Age/Sex: 47 / FADM Date: 05/04/23 Loc: MICHAEL Attending Dr: Maddie Kim MD Ordering Physician: Jaja Kimults: 1Negative Date of Service: 05/04/23Follow Up: 1 Year From Orig inal Mammogram Procedure(s): tomosynthesis screening BI Accession Number(s): [id number] cc: aMddie Kim EXAMINATION: MM SCREENING DIGITAL BREAST TOMOSYNTHESIS, [...] in OV> 05/26/23 1503 DD/ 1602 TD/TT: Supervisor Small Appliance Assembly: Maddie Kim MD IMG BI PROCEDURES Final [...] documented as of this encounter Care Teams Mobile Application Development Lead Relationship Specialty Start Date End Date Maddie Kim MD [address] [place] [address] PCP - General Family Medicine 07/12/20 Willie Gage 01/17/22 documented as of this encounter
--- OUTSIDE RECORDS SUMMARY | 2024-04-17 18:24 | XMS_ITS | Encounter Summary ---
Author Organization [employer] Address 75 [facility] 7t [place] [address] Care Team Providers Care Fuel Retrofitting Technician Name Role Phone Maddie Kim MD Primary Care Provider [phone] Encounter Details Date Type Department Care Team ([facility] st Contact Info) Description 03/19/2023 Orders Only [facility] MEDICINE [address] [place], [place] [phone] Maddie Kim MD [address] [place], [place] [phone] Herniated lumbar intervertebral disc (Primary Dx) Social [...] Info) Description 07/01/2024 11:30 AM EDT Telemedicine [facility] MED[facility]INE [address] [place] [address] Maddie Kim MD [address] [place] [address] documented as of this encounter Visit Diagnoses Diagnosis Herniated lumbar intervertebral disc- Primary Displacement of lumbar intervertebral disc without myelopathy documented in this encounter Additional Health Concerns Assessment Noted Time PHQ-9 Depression Total Score: 0 05/30/19 23 3:26 PM EDT documented as of this encounter Care Teams Fuel Retrofitting Technician Relationship Specialty Start Date End Date Maddie Kim MD [address] [place] [address] PCP - General Family Medicine 07/12/20 Willie Gage 01/17/22 documented as of this encounter
--- OUTSIDE RECORDS SUMMARY | 2024-04-17 18:24 | XMS_ITS | Encounter Summary ---
Author Organization [employer] Address 75 [facility] 7t [place] [address] Care Team Providers Care Logistics Director Name Role Phone Maddie Kim MD Primary Care Provider [phone] Reason for Visit * Reason Comments Transition Of Care (Tcm) HDF- Unschedule d- PATIENT REQ. A HDF WITHIN 7 DAYS AND ONLY WITH HER PCP Encounter Details Date Type Department Care Team ([facility] st Contact Info) Description 03/28/2024 Patient Outreach [facility] [address] [place], [place] [phone] Maddie Kim MD [address] [place], [place] [phone] Transition Of Care (Tcm) (HDF- Unscheduled- PATIENT [...] t he electric, gas, oil or water [employer] threatened to shut off services in your [...] 1:27 PM EST TC placed to patient [phone] in regards to below message. Patient did not answer, RN left requesting CB to red team nurses. RN will re-attempt tomorrow if no CB. documented in this encounter Miscellaneous Notes * Significant Event - Ruby Summers - 03/28/2024 1:34 PM EST 03/28/24 1332 Hospital Discharges and Admission for [facility] Type of Visit Hospital Admission Date of Admission/Visit 03/25/24 Date of Discharge 03/27/24 Facility [facility] Diagnosis Hyponatremia Disposition Discharged Home Follow-Up [...] Info) Description 07/01/2024 11:30 AM EDT Telemedicine [facility] MED[facility]INE [address] [place] [address] [phone] Maddie Kim MD [address] [place] [address] [phone] documented as of this encounter Visit Diagnoses Not on filedocumented in this encounter Additional Health Concerns Assessment Noted Time PHQ-9 Depression Total Score: 3 06/15/19 24 11:48 AM EDT documented as of this encounter Care Teams Logistics Director Relationship Specialty Start Date End Date Maddie Kim MD [address] [place] [address] PCP - General Family Medicine 07/12/20 Willie Gage 01/17/22 documented as of this encounter
--- OUTSIDE RECORDS SUMMARY | 2024-04-17 18:25 | XMS_ITS | Encounter Summary ---
Author Organization [employer] Address 75 [facility] 7t [place] [address] Care Team Providers Care Cnc Manufacturing Engineer Name Role Phone Maddie Kim MD Primary Care Provider [phone] Encounter Details Date Type Department Care Team ([facility] st Contact Info) Description 03/24/2024 Telephone [facility] [address] [place], [place] [phone] Maddie Kim MD [address] [place], [place] [phone] Social History Tobacco Use Types Packs/Day Years [...] reviewed meditech, patient is currently admitted to [facility] d/t hypokalemia, hyperkalemia and hypotension. Patient admitted [...] 3:29 PM EST TC placed to patient [phone] to inform patient, PCP would like patient to repeat BW tomorrow as per provider at [facility]. If sodium returns low again then [...] Name of Caller/Facility:Lauren Gage RN Callback number: [phone] Reason for Call: NA 125 Lauren RN [...] team nurses for follow up. High Priority [employer] Chat Secure Message also sent to Red Team Nurses. documented in this encounter Plan of Treatment Upcoming Encounters Date Type Department Care Team (Late st Contact Info) Description 07/01/2024 11:30 AM EDT Telemedicine [facility] [address] [place] [address] Maddie Kim MD [address] [place] [address] documented as of this encounter Visit Diagnoses Not on filedocumented in this encounter Additional Health Concerns Assessment Noted Time PHQ-9 Depression Total Score: 3 06/15/19 24 11:48 AM EDT documented as of this encounter Care Teams Cnc Manufacturing Engineer Relationship Specialty Start Date End Date Maddie Kim MD [address] [place] [address] PCP - General Family Medicine 07/12/20 Willie Gage 01/17/22 documented as of this encounter
--- OUTSIDE RECORDS SUMMARY | 2024-04-17 18:25 | XMS_ITS | Encounter Summary ---
Author Organization [employer] Address 75 [facility] 7t [place] [address] Care Team Providers Care Rod Greaser Name Role Phone Maddie Kim MD Primary Care Provider [phone] Reason for Visit * Reason Comments Med Refill Encounter Details Date Type Department Care Team ([facility] st Contact Info) Description 04/09/2024 Refill [facility] [address] [place], [place] [phone] Maddie Kim MD [address] [place], [place] [phone] Social History Tobacco Use Types Packs/Day Years [...] Description 07/01/2024 11:30 AM EDT Telemedicine [facility] MED[facility]INE [address] [place] [address] Maddie Kim MD [address] [place] [address] documented as of this encounter Visit Diagnoses Not on filedocumented in this encounter Additional Health Concerns Assessment Noted Time PHQ-9 Depression Total Score: 3 06/15/19 24 11:48 AM EDT documented as of this encounter Care Teams Rod Greaser Relationship Specialty Start Date End Date Maddie Kim MD [address] [place] [address] PCP - General Family Medicine 07/12/20 Willie Gage 01/17/22 documented as of this encounter
--- OUTSIDE RECORDS SUMMARY | 2024-04-17 18:25 | XMS_ITS | Encounter Summary ---
Author Organization [employer] Address [address] [place] [address] 7t [place] [address] Care Team Providers Care Casting House Worker Name Role Phone Maddie Kim MD Primary Care Provider [phone] Reason for Visit * Reason Onset Date Comments NTTS 03/24/2024 Encounter Details Date Type Department Care Team ([facility] Contact Info) Description 03/24/2024 Telephone [facility] [address] [place], [place] [phone] Sheila Rene RN [address] [place] [address] NTTS Social History Tobacco Use Types Packs/Day [...] pain NTTS RN's advised patient to call [facility] in the AM for a consult. TC placed to patient [phone] who reports [facility] evaluated her on 03/22/24 and stated she does not have a UTI. Patient reports she was informed her pain is most likely related to her bladder mesh which was placed after her bladder lifting surgery in 2022. Patient also reports she is currently at a partial program and the provider ordered BW which patient completed on 03/21/24 via [facility] labs and her sodium returned low at [...] new appointment date and time. RN called [facility] [phone] to request visit note from 03/22/24 to be faxed to [phone]. RN also obtained [facility] labs from 03/21/24 and scanned into chart. documented in this encounter Plan of Treatment Upcoming Encounters Date Type Department Care Team (Late st Contact Info) Description 07/01/2024 11:30 AM EDT Telemedicine [facility]INE [address] [place], [place] [phone] Maddie Kim MD [address] [place] [address] documented as of this encounter Visit Diagnoses Not on filedocumented in this encounter Additional Health Concerns Assessment Noted Time PHQ-9 Depression Total Score: 3 06/15/19 24 11:48 AM EDT documented as of this encounter Care Teams Casting House Worker Relationship Specialty Start Date End Date Maddie Kim MD [address] [place] [address] [phone] PCP - General Family Medicine 07/12/20 Willie Caring 01/17/22 documented as of this encounter
--- OUTSIDE RECORDS SUMMARY | 2024-04-17 18:25 | XMS_ITS | Clinical Summary ---
Author Organization Unknown Care Team Providers Care Crop Supervisor Name Role Phone MARLON AHUMADA, JEAN-PIERRE Unavailable Unavailable ENRIQUE WEINSTEINW, WINNIE Unavailable Unavailable KATINA RN, ANASTACIA Unavailable Unavailable SMILEY RN, JENNI Unavailable Unavailable JAVIER RN, GABBY Unavailable Unavaila ble Payers Payer Name Policy Type Policy Number Effective Date Expira tion Date [facility] [id number] [place] [id number] MEDICARE - [facility] [place] - PD [id number] Problems Condition Name Condition Details Condition Category [...] 2020-02 00:00: 00 03-07 00:00 :00 No [id number] 10 mg 3 TIMES DAILY 10 mg 3 TIMES DAILY (route: oral) Med Classific ation: Locomotor System buprenorphi ne 4 mg-naloxone 1 mg sublingual film 2020-02 00:00: 00 04-05 00:00 :00 No [id number] Per instruc tions NEEDED Per instructio ns NEEDED (route: sublingual ) Med Classific ation: Chemical Dependenc y, Agents to Treat divalproex 250 mg tablet,kassandra yed release 2020-02 00:00: 00 04-05 23:59 :00 No [id number] 250 mg DAILY 250 mg DAILY (route: oral) Med Classific ation: Central Nervous System Agents divalproex ER 500 mg tablet,exte nded release 24 hr 2020-02 00:00: 00 04-05 00:00 :00 No [id number] 500 mg 2 TIMES DAILY 500 mg 2 TIMES DAILY (route: oral) Med Classific ation: Central Nervous System Agents ferrous sulfate 325 mg (65 mg iron) tablet 2020-02 00:00: 00 04-05 00:00 :00 No [id number] 1 tablet DAILY 1 tablet DAILY (route: oral) Med Classific ation: Electroly te Balance-N utritiona l Products Invega Sustenna 156 mg/mL intramuscul ar syringe 2020-02 00:00: 00 05-11 23:59 :00 No [id number] 156 mg MONTHLY 156 mg MONTHLY (route: intramuscu lar) Med Classific ation: Central Nervous System Agents levothyroxi ne 25 mcg tablet 2020-02 00:00: 00 03-05 23:59 :00 No [id number] 25 mcg DAILY 25 mcg DAILY (route: oral) Med Classific ation: Endocrine lisinopril 5 mg tablet 2020-02 00:00: 00 11-21 23:59 :00 No [id number] 5 mg DAILY 5 mg DAILY (route: oral) Med Classific ation: Cardiovas cular Therapy Agents nicotine (polacrilex ) 4 mg gum 2020-02 00:00: 00 09-12 23:59 :00 No [id number] 4 gum NEEDED 4 gum NEEDED (route: buccal) Med Classific ation: Chemical Dependenc y, Agents to Treat nicotine 21mg/24hr-1 4mg/24hr-7m g/24hr daily transderm patches,seq uentl 2020-02 00:00: 00 09-12 23:59 :00 No [id number] 21 patch NEEDED 21 patch NEEDED (route: transderma l) Med Classific ation: Chemical Dependenc y, Agents to Treat nystatin 500,000 unit tablet 2020-02 00:00: 00 04-05 00:00 :00 No [id number] In unit 4 TIMES DAILY [id number] In unit 4 TIMES DAILY (route: oral) Med Classific ation: Anti-Infe ctive Agents omeprazole 20 mg tablet,kassandra yed release 2020-02 00:00: 00 Yes [id number] 20 mg DAILY 20 mg DAILY (route: oral) Med Classific ation: Gastroint estinal Therapy Agents prazosin 5 mg capsule 2020-02 00:00: 00 02-14 23:59 :00 No [id number] 5 capsule BEDTIME 5 capsule BEDTIME (route: oral) Med Classific ation: Cardiovas cular Therapy Agents trazodone 50 mg tablet 2020-02 00:00: 00 01-17 23:59 :00 No [id number] 50 mg NEEDED 50 mg NEEDED (route: oral) Med Classific ation: Central Nervous System Agents albuterol sulfate HFA 90 mcg/actuati on aerosol inhaler 04-05 00:00: 00 Yes [id number] 2 puff NEEDED 2 puff NEEDED (route: inhalation ) Med Classific ation: Respirato ry Therapy Agents Aspercreme with Aloe 10 % topical 04-05 00:00: 00 09-12 23:59 :00 No [id number] Per instruc tions NEEDED Per instructio ns NEEDED (route: topical) Med Classific ation: Dermatolo gical cyclobenzap rine 5 mg tablet 04-05 00:00: 00 01-17 23:59 :00 No [id number] 5 mg NEEDED 5 mg NEEDED (route: oral) Med Classific ation: Locomotor System Depakote 500 mg tablet,kassandra yed release 04-05 00:00: 00 05-06 23:59 :00 No [id number] 1000 mg 2 TIMES DAILY 1000 mg 2 TIMES DAILY (route: oral) Med Classific ation: Central Nervous System Agents diphenhydra mine 25 mg capsule 04-05 00:00: 00 06-01 23:59 :00 No [id number] 50 mg NEEDED 50 mg NEEDED (route: oral) Med Classific ation: Respirato ry Therapy Agents hydroxyzine HCl 50 mg tablet 2-15 00:00: 00 06-01 23:59 :00 No [id number] 50 mg 3 TIMES DAILY 50 mg 3 TIMES DAILY (route: oral) Med Classific ation: Central Nervous System Agents naltrexone 50 mg tablet 2-15 00:00: 00 06-01 23:59 :00 No [id number] 50 mg DAILY 50 mg DAILY (route: oral) Med Classific ation: Antidotes and other Reversal Agents Narcan 4 mg/actuatio n nasal spray 2-15 00:00: 00 06-01 23:59 :00 No [id number] Per instruc tions NEEDED Per instructio ns NEEDED (route: nasal) Med Classific ation: Antidotes and other Reversal Agents pyridoxine (vitamin B6) 25 mg tablet 2-15 00:00: 00 06-01 23:59 :00 No [id number] 25 mg DAILY 25 mg DAILY (route: oral) Med Classific ation: Electroly te Balance-N utritiona l Products Invega Sustenna 234 mg/1.5 mL intramuscul ar syringe 3-24 00:00: 00 Yes [id number] Per instruc tions MONTHLY Per instructio ns MONTHLY (route: intramuscu lar) Med Classific ation: Central Nervous System Agents Invega Sustenna 234 mg/1.5 mL intramuscul ar syringe 8-14 00:00: 00 11-30 23:59 :00 No [id number] 234 mg MONTHLY 234 mg MONTHLY (route: intramuscu lar) Med Classific ation: Central Nervous System Agents Celebrex 200 mg capsule 2021-02 0-26 00:00: 00 03-20 23:59 :00 No [id number] 200 mg 2 TIMES DAILY 200 mg 2 TIMES DAILY (route: oral) Alternate Route: NONE. Med Classific ation: Analgesic , Anti-infl ammatory or Antipyret ic Celebrex 200 mg capsule 1-30 00:00: 00 01-10 23:59 :00 No [id number] 200 mg DAILY 200 mg DAILY (route: oral) Alternate Route: NONE. Med Classific ation: Analgesic , Anti-infl ammatory or Antipyret ic docusate sodium 100 mg capsule 30 00:00: 00 01-29 23:59 :00 No [id number] 1 capsule 2 TIMES DAILY 1 capsule 2 TIMES DAILY (route: oral) Alternate Route: NONE. Med Classific ation: Gastroint estinal Therapy Agents Eliquis 2.5 mg tablet 30 00:00: 00 09-12 23:59 :00 No [id number] 1 tablet 2 TIMES DAILY 1 tablet 2 TIMES DAILY (route: oral) Med Classific ation: Hematolog ical Agents oxycodone 5 mg tablet 03-20 00:00: 00 04-18 23:59 :00 No [id number] Per instruc tions DIRECTED Per instructio ns DIRECTED (route: oral) Alternate Route: NONE. Med Classific ation: Analgesic , Anti-infl ammatory or Antipyret ic tramadol 50 mg tablet 03-20 00:00: 00 04-18 23:59 :00 No [id number] Per instruc tions DIRECTED Per instructio ns DIRECTED (route: oral) Med Classific ation: Analgesic , Anti-infl ammatory or Antipyret ic gabapentin 300 mg capsule 3-29 00:00: 00 01-10 23:59 :00 No [id number] 1 capsule 3 TIMES DAILY 1 capsule 3 TIMES DAILY (route: oral) Med Classific ation: Central Nervous System Agents cyclobenzap rine 5 mg tablet 7-27 00:00: 00 01-10 23:59 :00 No [id number] 1 tablet 3 TIMES DAILY 1 tablet 3 TIMES DAILY (route: oral) Med Classific ation: Locomotor System baclofen 10 mg tablet 2022-02 1-24 00:00: 00 03-30 23:59 :00 No [id number] 1 tablet DIRECTED 1 tablet DIRECTED (route: oral) Med Classific ation: Locomotor System docusate sodium 100 mg capsule 2022-02 00:00: 00 Yes [id number] 1 capsule NEEDED 1 capsule NEEDED (route: oral) Med Classific ation: Gastroint estinal Therapy Agents acetaminoph en 300 mg-codeine 30 mg tablet 2-09 00:00: 00 05-15 23:59 :00 No [id number] 1 tablet 3 TIMES DAILY 1 tablet 3 TIMES DAILY (route: oral) Med Classific ation: Analgesic , Anti-infl ammatory or Antipyret ic Paxlovid 300 mg (150 mg x 2)-100 mg tablets in a dose pack 09 00:00: 00 04-03 23:59 :00 No [id number] 3 tablet 2 TIMES DAILY 3 tablet 2 TIMES DAILY (route: oral) Med Classific ation: Anti-Infe ctive Agents tizanidine 4 mg tablet 03-30 00:00: 00 01-03 23:59 :00 No [id number] 1 tablet 3 TIMES DAILY 1 tablet 3 TIMES DAILY (route: oral) Med Classific ation: Locomotor System Depakote 500 mg tablet,kassandra yed release 3-23 00:00: 00 03-31 23:59 :00 No [id number] 1000 mg 2 TIMES DAILY 1000 mg 2 TIMES DAILY (route: oral) Med Classific ation: Central Nervous System Agents multivitami n tablet 15 00:00: 00 Yes [id number] 1 tablet DIRECTED 1 tablet DIRECTED (route: oral) Med Classific ation: Electroly te Balance-N utritiona l Products gabapentin 300 mg capsule 07-10 00:00: 00 Yes [id number] 2 capsule 3 TIMES DAILY 2 capsule 3 TIMES DAILY (route: oral) Med Classific ation: Central Nervous System Agents paliperidon e ER 1.5 mg tablet,exte nded release 24 hr 07-10 00:00: 00 11-22 23:59 :00 No [id number] 1 tablet DAILY 1 tablet DAILY (route: [...] AWARENESS FOR SAFETY AND WILL NOTIFY CLINICAL OVEN DAUBER AND PHYSICIAN/PROVIDER WITH ANY CHANGE IN CONDITION. [code = SKILLED NURSE WILL MAINTAIN SITUATIONAL AWARENESS FOR SAFETY AND WILL NOTIFY CLINICAL OVEN DAUBER AND PHYSICIAN/PROVIDER WITH ANY CHANGE IN CONDITION.] [...] 2024-05-05 00:00:00 Outpatient RECERTIFIC ATION GABBY HERRERA [facility] [id number] 43.75
--- OUTSIDE RECORDS SUMMARY | 2024-04-17 18:25 | XMS_ITS | Encounter Summary ---
Author Organization [employer] Address [address] [facility] [address] [place] [address] Care Team Providers Care Police Officer Name Role Phone Maddie Kim MD Primary Care Provider [phone] Encounter Details Date Type Department Care Team ([facility] st Contact Info) Description 04/14/2024 Orders Only [facility] [address] [place], [place] [phone] Maddie Kim MD [address] [place], [place] [phone] Social History Tobacco Use Types Packs/Day Years [...] EDT Telemedicine [facility] [address] [place], [place] [phone] Maddie Kim MD [address] [place], [place] [phone] documented as of this encounter Procedures Procedure Name Priority Date/Time Associated Diagnosis Comments CORTISOL RANDOM Routine 04/14/2024 12:47 PM EST CBC WITH AUTO DIFFERENTIAL Routine 04/14/2024 12:47 PM EST IRON AND TOTAL IRON BINDING CAPACITY Routine 04/14/2024 12:47 PM EST IMMUNOFIXATION, SERUM Routine 04/14/2024 12:47 PM EST FERRITIN Routine 04/14/2024 12:47 PM EST BASIC METABOLIC PANEL Routine 04/14/2024 12:47 PM EST SODIUM W/O CREATININE, RANDOM URINE Routine 04/14/2024 12:45 PM EST OSMOLALITY (U) Routine 04/14/2024 12:45 PM EST documented in this encounter Results * (ABNORMAL) Immunofixation, Serum (04/14/2024 12:47 PM EST) Pathologist [facility] IMMUNOGLOBULIN G 1545 600 - 1640 mg/dL [facility] IMMUNOGLOBULIN A 197 47 - 310 mg/dL [facility] Immunoglobulin M 46(A) 50 - 300 mg/dL [facility] Comment:THIS TEST WAS PERFOR MED AT:[employer] [place] [phone] PARKINSON MD Immunofixation Result SEE NOTE [facility] Comment:Normal pattern. No m onoclonal proteins detected. 04/14/2024 12:4 7 PM EST 04/14/2024 12:47 PM EST [employer] External Data Provider LAB BLOOD ORDERAB LES Final Result Performing Organization Address [facility] de Phone Number [facility] [address] [place] [phone] * Cortisol Random (04/14/2024 12:47 PM EST) [facility] Cortisol Random 5.7 ug/dL [facility] Comment:Reference Range*: Be fore 10 am 6.2-19.4 ug/dL After 5 pm 2.3-11.9 ug/dL*Please interpret above results accordingly.This test was performed using the Ibotta chemiluminescentmethod. Values obtained from different assay methods cannotbe used interchangeably.Patients receiving fludrocortisone, prednisolone orprednisone may show artificially elevated cortisol valuesdue to cross-reactivity. 04/14/2024 12:4 7 PM EST 04/14/2024 12:47 PM EST Generic External Data Provider LAB BLOOD ORDERAB LES Final Result Performing Organization Address [facility] Co de Phone Number [facility] [address] [place] [phone] * Ferritin (04/14/2024 12:47 PM EST) Pathologist [facility] Ferritin 61 10 - 250 ng/mL [facility] 04/14/2024 12:4 7 PM EST 04/14/2024 12:47 PM EST us Gil Brewer MD LAB BLOOD ORDERABLES Final Resul t Performing Organization Address [facility] Co de Phone Number [facility] [address] [place] [phone] * Iron And Total Iron Binding Capacity (04/14/2024 12:47 PM EST) Iron 77 30 - 160 mcg/dL [facility] Total Iron Binding Capacity 339 228 - 428 mcg/dL [facility] Percent Iron Saturation 23 15 - 50 % [facility] Unsaturated Iron Binding 262 ug/dL [facility] 04/14/2024 12:4 7 PM EST 04/14/2024 12:47 PM EST us Gil Brewer MD LAB BLOOD ORDERABLES Final Resul t Performing Organization Address [facility] Co de Phone Number [facility] [address] [place] [phone] * (ABNORMAL) Basic Metabolic Panel (04/14/2024 12:47 PM EST) Sodium 139 135 - 145 mmol/L [facility] Potassium 4.3 3.3 - 5.1 mmol/L [facility] Chloride 104 96 - 108 mmol/L [facility] Carbon Dioxide 27 22 - 29 mmol/L [facility] Anion Gap 12 12 - 20 [facility] Urea Nitrogen (BUN) 7(L) 9 - 16 mg/dL [facility] Creatinine, Serum 0.69 0.5 - 1.4 mg/dL [facility] Estimated Glomerular Filt Rate >60 [facility] Comment:Chronic Kidney Disea se: Estimated GFR < 60 mL/min/1.39z8Demzmj Kidney Disease: Estimated GFR < 15 mL/min/1.73m2 Glucose 84 60 - 115 mg/dL [facility] Calcium 9.5 8.4 - 10.2 mg/dL [facility] 04/14/2024 12:4 7 PM EST 04/14/2024 12:47 PM EST us Gil Name MD LAB BLOOD ORDERABLES Final Resul t [facility] [address] [place], [place] [phone] * (ABNORMAL) CBC auto differential (04/14/2024 12:47 PM EST) White Blood Count 6.5 4.8 - 10.8 X10*3/uL [facility] Red Blood Count 3.74(L) 4.20 - 5.50 X10*6/uL [facility] Hemoglobin 9.4(L) 12.0 - 16.0 g/dl [facility] Hematocrit 29.6(L) 37.0 - 47.0 % [facility] Mean Corpuscular Volume 79.1(L) 80.0 - 98.0 fL [facility] Mean Corpuscular Hemoglobin 25.1(L) 27.0 - 33.0 pg [facility] Mean Corpuscular HGB Conc 31.8 31.0 - 35.0 g/dl [facility] Red Cell Distribution Width 16.1(H) 11.0 - 16.0 % [facility] Platelet Count 530(H) 160 - 400 X10*3/uL [facility] Mean Platelet Volume 9.6 9.4 - 12.3 fL [facility] Neutrophils Percent Auto 56.2 45 - 73 % [facility] Imm Gran Pct Auto 0.6(H) 0.0 - 0.4 % [facility] Lymphocytes Percent Auto 32.5 20 - 40 % [facility] Monocytes Percent Auto 8.8 2 - 11 % [facility] Eosinophils Percent Auto 1.4 0 - 4 % [facility] Basophils Percent Auto 0.5 0 - 2 % [facility] NRBC Pct Auto 0.0 0.0 - 0.2 /100WBC [facility] Neutrophils Absolute Auto 3.7 2.0 - 8.3 x10*3/uL [facility] Imm Gran Abs Auto 0.04(H) 0.00 - 0.03 X10*3/uL [facility] Lymphocytes Absolute Auto 2.1 1.2 - 4.9 X10*3/uL [facility] Monocytes Absolute Auto 0.6 0.1 - 1.2 X10*3/uL [facility] Eosinophils Absolute Auto 0.1 0.0 - 0.4 X10*3/uL [facility] Basophils Absolute Auto 0.0 0.0 - 0.2 X10*3/uL [facility] NRBC Abs Auto 0.000 0.0 - 0.012 X10*3/uL [facility] 04/14/2024 12:4 7 PM EST 04/14/2024 12:47 PM EST us Gil Brewer MD LAB BLOOD ORDERABLES Final Resul t Performing Organization Address City/[facility]/ZIP Co de Phone Number [facility] [address] [place] [address] [phone] * (ABNORMAL) Osmolality, Urine (04/14/2024 12:45 PM EST) OSMOLALITY URINE 212(L) 373 - 1,093 mosm/kg [facility] 04/14/2024 12:4 5 PM EST 04/14/2024 1:55 PM EST us Generic External Data Provider LAB URINE ORDERAB LES Final Result Performing Organization Address [facility] Co de Phone Number [facility] [address] [place] [address] [phone] * Sodium Without creatinine, Random Urine (04/14/2024 12:45 PM EST) Sodium Urine Random 47.0 mmol/L [facility] 04/14/2024 12:4 5 PM EST 04/14/2024 1:55 PM EST us Generic External Data Provider LAB BLOOD ORDERAB LES Final Result [facility] [address] [place] [address] [phone] documented in this encounter Visit Diagnoses Not on filedocumented in this encounter Additional Health Concerns Assessment Noted Time PHQ-9 Depression Total Score: 3 06/15/19 24 11:48 AM EDT documented as of this encounter Care Teams Police Officer Relationship Specialty Start Date End Date Maddie Kim MD [address] [place] [phone] PCP - General Family Medicine 07/12/20 Willie Gage 01/17/22 documented as of this encounter
--- OUTSIDE RECORDS SUMMARY | 2024-04-17 18:25 | XMS_ITS | Encounter Summary ---
Author Organization [employer] Address [address] [place] [address] [address] [place] [address] Care Team Providers Care Lead Systems Engineer Name Role Phone Maddie Kim MD Primary Care Provider [phone] Reason for Visit * Reason Onset Date Comments CRITICAL RESULT CALL 04/10/2024 Encounter Details Date Type Department Care Team ([facility] Contact Info) Description 04/10/2024 Telephone [facility] [address] [place], [place] [phone] Maddie Kim MD [address] [place], [place] [phone] CRITICAL RESULT CALL Social History Tobacco Use [...] Telephone Encounter - Sheila Rene RN - 04/15/2024 9:43 AM EST Noted. * Telephone Encounter - Sheila Rene RN - 04/14/2024 11:04 AM EST TC placed to patient [phone] in regards to below message. Patient reports she has NOT heard from community health navigator as of yet. Per referral notes, referral [...] at 9:44 AM Name of Caller/Facility:Darlene KASPER [facility] Callback number: [phone] Reason for Call: Calling to inform that [...] AM EDT Telemedicine [facility] [address] [place] [phone] Maddie Kim MD [address] [place] [address] [phone] documented as of this encounter Visit Diagnoses Not on filedocumented in this encounter Additional Health Concerns Assessment Noted Time PHQ-9 Depression Total Score: 3 06/15/19 24 11:48 AM EDT documented as of this encounter Care Teams Lead Systems Engineer Relationship Specialty Start Date End Date Maddie Kim MD [address] [place] [address] [phone] PCP - General Family Medicine 07/12/20 Willie Gage 01/17/22 documented as of this encounter
--- OUTSIDE RECORDS SUMMARY | 2024-04-17 18:25 | XMS_ITS | Encounter Summary ---
Author Organization [employer] Address [address] [facility] 7[address] [place] [address] Care Team Providers Care Ticket Sales Supervisor Name Role Phone Maddie Kim MD Primary Care Provider [phone] Reason for Visit * Reason Onset Date Comments Nurse Triage 05/14/2023 Encounter Details Date Type Department Care Team ([facility] st Contact Info) Description 05/14/2023 Telephone [facility] [address] [place], [place] [phone] Maddie Kim MD [address] [place], [place] [phone] Nurse Triage Social History Tobacco Use Types [...] accepted this outcome Any questions to Destiny [phone] documented in this encounter Plan of Treatment Upcoming Encounters Date Type Department Care Team (Late st Contact Info) Description 07/01/2024 11:30 AM EDT Telemedicine [facility] [address] [place] [phone] Maddie Kim MD [address] [place] [phone] documented as of this encounter Visit Diagnoses Not on filedocumented in this encounter Additional Health Concerns Assessment Noted Time PHQ-9 Depression Total Score: 0 05/30/19 23 3:26 PM EDT documented as of this encounter Care Teams Ticket Sales Supervisor Relationship Specialty Start Date End Date Maddie Kim MD [address] [place] [phone] PCP - General Family Medicine 07/12/20 Willie Gage 01/17/22 documented as of this encounter
== END 2024-04-17 15:35 | disposition home or self-care (01) ==
PROVIDERS: PCP General Practice; Visit Provider Internal Medicine Nephrology
DX: I10 Essential (primary) hypertension (principal); E87.1 Hypo-osmolality and hyponatremia
CPT/HCPCS: 99214

== ENCOUNTER → 2024-04-17 15:04 | Outpatient (BNVA) | payer OTHER, SELFPAY | PROVIDERS: PCP General Practice; Visit Provider Internal Medicine Nephrology | DX: I10 Essential (primary) hypertension (principal); E87.1 Hypo-osmolality and hyponatremia | CPT/HCPCS: 99212 ==

== ENCOUNTER 2024-04-24 07:43 | Outpatient (REF) | payer OTHER, SELFPAY ==
--- OUTSIDE RECORDS SUMMARY | 2024-04-24 07:47 | XMS_ITS | Encounter Summary ---
Author Organization [employer] Address [address] [facility] 7t [place] [address] Care Team Providers Care Student Name Role Phone Maddie Kim MD Primary Care Provider [phone] Encounter Details Date Type Department Care Team ([facility] st Contact Info) Description 07/29/2023 Orders Only [facility] MEDICINE [address] [place], [place] [phone] Maddie Kim MD 230 [place], [place] [phone] Social History Tobacco Use Types Packs/Day Years [...] Info) Description 07/01/2024 11:30 AM EDT Telemedicine [facility] MEDICINE [address] [place] [address] Maddie Kim MD [address] [place] [address] documented as of this encounter Visit Diagnoses Not on filedocumented in this encounter Additional Health Concerns Assessment Noted Time PHQ-9 Depression Total Score: 3 06/15/19 24 11:48 AM EDT documented as of this encounter Care Teams Student Relationship Specialty Start Date End Date Maddie Kim MD 230 [place] [address] PCP - General Family Medicine 07/12/20 Willie Gage 01/17/22 documented as of this encounter
--- OUTSIDE RECORDS SUMMARY | 2024-04-24 07:47 | XMS_ITS | Encounter Summary ---
Author Organization [employer] Address [address] [facility] 7t [place] [address] Care Team Providers Care Chief Warden Name Role Phone Maddie Kim MD Primary Care Provider [phone] Reason for Visit * Reason Onset Date Comments Nutrition Medication Question 05/30/2023 Encounter Details Date Type Department Care Team ([facility] Contact Info) Description 05/30/2023 Telephone [facility] MEDICINE 230 [place], [place] [phone] Maddie Kim MD 230 [place], [place] [phone] Nutrition Medication Question Social History Tobacco Use [...] AM EDT Telemedicine [facility] MEDICINE [address] [place] [address] Madide Kim MD 230 [place] [address] documented as of this encounter Visit Diagnoses Not on filedocumented in this encounter Additional Health Concerns Assessment Noted Time PHQ-9 Depression Total Score: 0 05/30/19 23 3:26 PM EDT documented as of this encounter Care Teams Chief Warden Relationship Specialty Start Date End Date Maddie Kim MD [address] [place] [address] PCP - General Family Medicine 07/12/20 Willie Gage 01/17/22 documented as of this encounter
--- OUTSIDE RECORDS SUMMARY | 2024-04-24 07:47 | XMS_ITS | Encounter Summary ---
Author Organization [employer] Address [address] [facility] 7t [place] [address] Care Team Providers Care Vibrator Equipment Tester Name Role Phone Maddie Kim MD Primary Care Provider Encounter Details Date Type Department Care Team ([facility] st Contact Info) Description 05/15/2023 Orders Only [facility] MEDICINE 230 [place], [place] [phone] Maddie Kim MD 230 [place], [place] [phone] Social History Tobacco Use Types Packs/Day Years [...] Description 07/01/2024 11:30 AM EDT Telemedicine [facility] MEDICINE [address] [place] [address] [phone] Maddie Kim MD [address] [place] [address] [phone] documented as of this encounter Visit Diagnoses Not on filedocumented in this encounter Additional Health Concerns Assessment Noted Time PHQ-9 Depression Total Score: 0 05/30/19 23 3:26 PM EDT documented as of this encounter Care Teams Vibrator Equipment Tester Relationship Specialty Start Date End Date Maddie Kim MD [address] [place] [address] [phone] PCP - General Family Medicine 07/12/20 Willie Gage 01/17/22 documented as of this encounter
--- OUTSIDE RECORDS SUMMARY | 2024-04-24 07:47 | XMS_ITS | Encounter Summary ---
Author Organization [employer] Address [address] [place] [address] 7t [place] [address] Care Team Providers Care Grants Director Name Role Phone Maddie Kim MD Primary Care Provider [phone] Encounter Details Date Type Department Care Team (Late Contact Info) Description 01/27/2022 Telephone [facility] MEDICINE [address] [place] [phone] Maddie Kim MD [address] [place] [phone] Social History Tobacco Use Types Packs/Day Years [...] 07/01/2024 11:30 AM EDT Telemedicine [facility] MEDICINE [address] [place] [address] Maddie Kim MD [address] [place] [address] documented as of this encounter Visit Diagnoses Not on filedocumented in this encounter Care Teams Grants Director Relationship Specialty Start Date End Date Maddie Kim MD [address] [place] [address] PCP - General Family Medicine 07/12/20 Willie Gage 01/17/22 documented as of this encounter
--- OUTSIDE RECORDS SUMMARY | 2024-04-24 07:48 | XMS_ITS | Encounter Summary ---
Author Organization [employer] Address [address] [facility] 7t [place] [address] Care Team Providers Care Television Production Technician Name Role Phone Maddie Kim MD Primary Care Provider [phone] Reason for Visit * Reason Onset Date Comments Call Back Request 07/26/2023 Encounter Details Date Type Department Care Team ([facility] Contact Info) Description 07/26/2023 Telephone [facility] MEDICINE 230 [place] [address] Maddie Kim MD 230 [place], [place] [phone] Call Back Request Social History Tobacco Use [...] 07/27/2023 9:31 AM EDT Tc returned to [facility], questioning pt.'s risperidone inj rx on med list they received. Looking back in chart, this was discontinued after inpatient hosp in 2020 due to noncompliance with injections. This was the last time it was prescribed. [facility] is requesting this is taken off our med list for accuracy, thank you! * Telephone Encounter - Zach Carlson - 07/26/2023 4:12 PM EDT Tc from [facility] with Willie Gage requesting a call back for a med reconciliation. Please contact Georgie at [phone]. documented in this encounter Plan of Treatment Upcoming Encounters Date Type Department Care Team (Late st Contact Info) Description 07/01/2024 11:30 AM EDT Telemedicine [facility] MEDICINE 230 [place] [address] Maddie Kim MD 230 [place], [place] [phone] documented as of this encounter Visit Diagnoses Not on filedocumented in this encounter Additional Health Concerns Assessment Noted Time PHQ-9 Depression Total Score: 3 06/15/19 24 11:48 AM EDT documented as of this encounter Care Teams Television Production Technician Relationship Specialty Start Date End Date Maddie Kim MD 230 [place] [address] PCP - General Family Medicine 07/12/20 Willie Gage 01/17/22 documented as of this encounter
--- OUTSIDE RECORDS SUMMARY | 2024-04-24 07:48 | XMS_ITS | Encounter Summary ---
Author Organization [employer] Address [address] [place] [address] 7t [place] [address] Care Team Providers Care Cargo Inspector Name Role Phone Maddie Kim MD Primary Care Provider [phone] Reason for Visit * Reason Onset Date Comments FYI 02/15/2024 Encounter Details Date Type Department Care Team ([facility] Contact Info) Description 02/15/2024 Telephone [facility] MEDICINE 230 [place], [place] [phone] Maddie Kim MD 230 [place], [place] [phone] FY Social History Tobacco Use Types Packs/Day [...] any questions you can contact Lauren at [phone]. documented in this encounter Plan of Treatment Upcoming Encounters Date Type Department Care Team (Late st Contact Info) Description 07/01/2024 11:30 AM EDT Telemedicine [facility] MEDICINE [address] [place] [phone] Maddie Kim MD 230 [place] [address] documented as of this encounter Visit Diagnoses Not on filedocumented in this encounter Additional Health Concerns Assessment Noted Time PHQ-9 Depression Total Score: 3 06/15/19 24 11:48 AM EDT documented as of this encounter Care Teams Cargo Inspector Relationship Specialty Start Date End Date Maddie Kim MD [address] [place] [phone] PCP - General Family Medicine 07/12/20 Willie Gage 01/17/22 documented as of this encounter
--- OUTSIDE RECORDS SUMMARY | 2024-04-24 07:48 | XMS_ITS | Encounter Summary ---
Author Organization [employer] Address [address] [place] [address] 7t [place] [address] Care Team Providers Care Commercial Estimator Name Role Phone Maddie Kim MD Primary Care Provider [phone] Reason for Referral * Consultation (Routine) - Closed Specialty Diagnoses / Procedures Referred By Sindi mejia Referred To Contact Nutrition Diagnoses Class 2 severe obesity with serious comorbidity and body mass index (BMI) of 39.0 to 39.9 in adult, unspecified obesity type (CMS/HCC) Maddie Kim MD [address] [place] [phone] Phone: tel: fax: Referral ID Status Reason Start Date Expiration Date V isits Requested Visits Authorized [id number] Closed Consult and Treat 04/06/2023 04/05/2024 1 1 Encounter Details Date Type Department Care Team (Late st Contact Info) Description 04/06/2023 Orders Only [facility] MEDICINE [address] [place] [address] [phone] Maddie Kim MD 230 [place] [address] Class 2 severe obesity with serious comorbidity [...] EDT Telemedicine [facility] MEDICINE [address] [place] [address] Maddie Kim MD 230 [place] [address] Scheduled Referrals Name Type Priority Associated Diagnoses [...] EDT Narrative 05/26/2023 3:06 PM EDT ? [facility] [place] ? [address] ?[place], [place] [address] ? Mammography Report ? Signed ? Patient: Stonewall,Atiya ?MR#: [id number] ? : 1975 ?Acct:[id number] ? Age/Sex: 47 / F ?ADM Date: 05/04/23 ? Loc: HO.MAMMO ? Attending Dr: Maddie Kim MD ? Ordering Physician: Maddie Kim ?Results: 1Negative ? Date of Service: 05/04/23 ?Follow Up: 1 Year From Orig ?? inal Mammogram ? Procedure(s): MM tomosynthesis screening BI ?? Accession Number(s): [id number] ? cc: Maddie Kim ? EXAMINATION: ?? [...] 1503 ? DD/ 1602 ? TD/TT: ? Crossword Puzzle Maker: ? Procedure Note John Paul, Zoya - 05/26/2023 [facility] [address] [place] [address] Mammography Report Signed Patient: Zain Esparza#: [id number] : 1975Acct:[id number] Age/Sex: 47 / FADM Date: 05/04/23 Loc: MICHAEL Attending Dr: Maddie Kim MD Ordering Physician: Jaja Kimults: 1Negative Date of Service: 05/04/23Follow Up: 1 Year From Orig inal Mammogram Procedure(s): tomosynthesis screening BI Accession Number(s): [id number] cc: Maddie Kim EXAMINATION: MM SCREENING DIGITAL [...] in OV> 05/26/23 1503 DD/ 1602 TD/TT: Crossword Puzzle Maker: Maddie Kim MD IMG BI PROCEDURES Final [...] as of this encounter Care Teams Commercial Estimator Relationship Specialty Start Date End Date Maddie Kim MD [address] [place] [address] PCP - General Family Medicine 07/12/20 Willie Gage 01/17/22 documented as of this encounter
--- OUTSIDE RECORDS SUMMARY | 2024-04-24 07:48 | XMS_ITS | Encounter Summary ---
Author Organization [employer] Address [address] [place] [address] 7t [place] [address] Care Team Providers Care Monotyper Name Role Phone Maddie Kim MD Primary Care Provider [phone] Reason for Visit * Reason Onset Date Comments FYI 03/28/2024 Encounter Details Date Type Department Care Team ([facility] Contact Info) Description 03/28/2024 Telephone [facility] MEDICINE 230 [place], [place] [phone] Maddie Kim MD 230 [place], [place] [phone] Social History Tobacco Use Types Packs/Day Years [...] Gage stating that Pt was seen at [facility] and she also said that they took pt off Med hydroCHLOROthiazide (HYDRODiuril) 25 MG tablet If any questions contact Lauren at [phone] documented in this encounter Plan of Treatment Upcoming Encounters Date Type Department Care Team (Late st Contact Info) Description 07/01/2024 11:30 AM EDT Telemedicine [facility] MEDICINE 230 [place] [address] Maddie Kim MD [address] [place] [address] documented as of this encounter Visit Diagnoses Not on filedocumented in this encounter Additional Health Concerns Assessment Noted Time PHQ-9 Depression Total Score: 3 06/15/19 24 11:48 AM EDT documented as of this encounter Care Teams Monotyper Relationship Specialty Start Date End Date Maddie Kim MD 230 [place] [address] PCP - General Family Medicine 07/12/20 Willie Gage 01/17/22 documented as of this encounter
--- OUTSIDE RECORDS SUMMARY | 2024-04-24 07:48 | XMS_ITS | Encounter Summary ---
Author Organization [employer] Address [address] [facility] 7t [place] [address] Care Team Providers Care Environmental Protection Geologist Name Role Phone Maddie Kim MD Primary Care Provider [phone] Reason for Visit * Reason Comments Med Refill Encounter Details Date Type Department Care Team ([facility] st Contact Info) Description 04/12/2023 Refill [facility] [address] [place] [address] [phone] Isac Gonzalez MD 230 [place], [place] [phone] Chronic bilateral low back pain without sciatica [...] Description 07/01/2024 11:30 AM EDT Telemedicine [facility] [address] [place] [phone] Maddie Kim MD 230 [place] [address] documented as of this encounter Visit Diagnoses Diagnosis Chronic bilateral low back pain without sciatica documented in this encounter Additional Health Concerns Assessment Noted Time PHQ-9 Depression Total Score: 0 05/30/19 23 3:26 PM EDT documented as of this encounter Care Teams Environmental Protection Geologist Relationship Specialty Start Date End Date Maddie Kim MD [address] [place] [address] PCP - General Family Medicine 07/12/20 Willie Gage 01/17/22 documented as of this encounter
--- OUTSIDE RECORDS SUMMARY | 2024-04-24 07:48 | XMS_ITS | Encounter Summary ---
Author Organization [employer] Address [address] [place] [address] 7t [place] [address] Care Team Providers Care Poultry Husbandman Name Role Phone Maddie Kim MD Primary Care Provider [phone] Encounter Details Date Type Department Care Team ([facility] Contact Info) Description 04/11/2022 Abstract [facility] MEDICINE [address] [place] [address] [phone] Maddie Kim MD [address] [place] [address] [phone] Social History Tobacco Use Types Packs/Day Years [...] Info) Description 07/01/2024 11:30 AM EDT Telemedicine [facility] MEDICINE [address] [place] [address] [phone] Maddie Kim MD [address] [place] [address] [phone] documented as of this encounter Visit Diagnoses Not on filedocumented in this encounter Care Teams Poultry Husbandman Relationship Specialty Start Date End Date Maddie Kim MD 230 [place] [address] PCP - General Family Medicine 07/12/20 Willie Gage 01/17/22 documented as of this encounter
--- OUTSIDE RECORDS SUMMARY | 2024-04-24 07:48 | XMS_ITS | Encounter Summary ---
Author Organization [employer] Address [address] [facility] 7t [place] [address] Care Team Providers Care Fisheries Manager Name Role Phone Maddie Kim MD Primary Care Provider [phone] Reason for Visit * Reason Comments Transition Of Care (Tcm) HDF- Unschedule d- PATIENT REQ. A HDF WITHIN 7 DAYS AND ONLY WITH HER PCP Encounter Details Date Type Department Care Team ([facility] st Contact Info) Description 03/28/2024 Patient Outreach [facility] MEDICINE 230 [place], [place] [phone] Maddie Kim MD 230 [place], [place] [phone] Transition Of Care (Tcm) (HDF- Unscheduled- PATIENT [...] t he electric, gas, oil or water behaview threatened to shut off services in your [...] 1:27 PM EST TC placed to patient [phone] in regards to below message. Patient did not answer, RN left requesting CB to red team nurses. RN will re-attempt tomorrow if no CB. documented in this encounter Miscellaneous Notes * Significant Event - Ruby Summers - 03/28/2024 1:34 PM EST 03/28/24 1332 Hospital Discharges and Admission for [facility] Type of Visit Hospital Admission Date of Admission/Visit 03/25/24 Date of Discharge 03/27/24 Facility [facility] Diagnosis Hyponatremia Disposition Discharged Home Follow-Up [...] Info) Description 07/01/2024 11:30 AM EDT Telemedicine [facility] MEDICINE [address] [place] [address] [phone] Maddie Kim MD [address] [place] [address] [phone] documented as of this encounter Visit Diagnoses Not on filedocumented in this encounter Additional Health Concerns Assessment Noted Time PHQ-9 Depression Total Score: 3 06/15/19 24 11:48 AM EDT documented as of this encounter Care Teams Fisheries Manager Relationship Specialty Start Date End Date Maddie Kim MD [address] [place] [phone] PCP - General Family Medicine 07/12/20 Willie Gage 01/17/22 documented as of this encounter
--- OUTSIDE RECORDS SUMMARY | 2024-04-24 07:48 | XMS_ITS | Encounter Summary ---
Author Organization [employer] Address [address] [facility] 7t [place] [address] Care Team Providers Care Insole Beveler Name Role Phone Maddie Kim MD Primary Care Provider [phone] Encounter Details Date Type Department Care Team ([facility] st Contact Info) Description 02/22/2024 Orders Only [facility] MEDICINE [address] [place], [place] [phone] Maddie Kim MD 230 [place], [place] [phone] Social History Tobacco Use Types Packs/Day Years [...] 07/01/2024 11:30 AM EDT Telemedicine [facility] MEDICINE [address] [place] [address] Maddie Kim MD 230 [place] [address] documented as of this encounter Visit Diagnoses Not on filedocumented in this encounter Additional Health Concerns Assessment Noted Time PHQ-9 Depression Total Score: 3 06/15/19 24 11:48 AM EDT documented as of this encounter Care Teams Insole Beveler Relationship Specialty Start Date End Date Maddie Kim MD 230 [place] [address] PCP - General Family Medicine 07/12/20 Willie Gage 01/17/22 documented as of this encounter
--- OUTSIDE RECORDS SUMMARY | 2024-04-24 07:48 | XMS_ITS | Encounter Summary ---
Author Organization [employer] Address [address] [facility] 7t [place] [address] Care Team Providers Care Business Continuity Specialist Name Role Phone Maddie Kim MD Primary Care Provider [phone] Encounter Details Date Type Department Care Team ([facility] st Contact Info) Description 01/02/[address] [facility] MEDICINE 230 [place], [place] [phone] Maddie Kim MD 230 [place], [place] [phone] Social History Tobacco Use Types Packs/Day Years [...] Description 07/01/2024 11:[address] [facility] MEDICINE [address] [place] [address] Maddie Kim MD 230 [place] [address] documented as of this encounter Visit Diagnoses Not on filedocumented in this encounter Additional Health Concerns Assessment Noted Time PHQ-9 Depression Total Score: 3 06/15/19 24 11:48 AM EDT documented as of this encounter Care Teams Business Continuity Specialist Relationship Specialty Start Date End Date Maddie Kim MD 230 [place] [address] PCP - General Family Medicine 07/12/20 Willie Gage 01/17/22 documented as of this encounter
--- OUTSIDE RECORDS SUMMARY | 2024-04-24 07:48 | XMS_ITS | Encounter Summary ---
Author Organization [employer] Address [address] [facility] 7t [place] [address] Care Team Providers Care Genetics Physician Name Role Phone Maddie Kim MD Primary Care Provider [phone] Encounter Details Date Type Department Care Team [...] 07/01/2024 11:30 AM EDT Telemedicine [facility] MEDICINE 230 [place] [address] Maddie Kim MD 230 [place] [address] documented as of this encounter Visit Diagnoses Not on filedocumented in this encounter Additional Health Concerns Assessment Noted Time PHQ-9 Depression Total Score: 3 06/15/19 24 11:48 AM EDT documented as of this encounter Care Teams Genetics Physician Relationship Specialty Start Date End Date Maddie Kim MD 230 [place] [address] PCP - General Family Medicine 07/12/20 Willie Gage 01/17/22 documented as of this encounter
--- OUTSIDE RECORDS SUMMARY | 2024-04-24 07:48 | XMS_ITS | Continuity of Care Document ---
Author Organization [facility] [place], [place] in - [facility] Address [address] [place] [phone] Care Team Providers Care Suction Plate Roller Hand Name Role Phone HIM [facility] OTHER [facility] OTHER Assessment No assessment recorded. Plan [...] Abnormal Flag Note LastModifiedBy Organization Detail LastModifiedTime 04/20/1904/19/2024 elect richie ryangr am No observ ation record ed. [email or web address] [address], [address], 04/19/2024 08:02:01 Result Notes None recorded. Medical Equipment None Reported. Allergies Allergen ID Allergen Name Allergen Category Reaction Reaction Severity Criticality Documentation Date Start Date Code Code System Note Provider Name and Address Organization Details Recorded Time 79165 Dilantin medicatio n Not available Not available Not available 02/22/2024 0 RxNorm Not Available [facility] - production 14:48:20 78118 sulfameth oxazole medicatio n Not available Not available Not available 02/22/2024 99593 RxNorm Not Available [facility] - production 14:48:20 90550 trimethop rim medicatio n Not available Not available Not available 02/22/2024 55904 RxNorm Not Available [facility] - production 14:48:20 29371 Product containin g penicilli n (product) medicatio n Not available Not available Not available 02/22/2024 64639 8001 SNOMED Not Available [facility] 5 14:48:20 45246 penicilli n G benzathin e medicatio n Not available Not available Not available 02/22/2024 7982 RxNorm Not Available [facility] 5 14:48:20 82774 penicilli n G procaine medicatio n Not available Not available Not available 02/22/2024 7983 RxNorm Not Available [facility] 5 14:48:20 Medications Name Sig Start Date [...] SNOMED-CT Code Diagnosis ICD10 Code Diagnosis Note [id number] Jessica Hadley MD Main - [address] [address] 03/23/2024 13:03:05 03/25/2024 16:45:46 Urinary symptoms [id number] R39.9 As noted, we were called to see this patient regarding concerns of urinary symptoms. Evaluation in the field was performed by my electrical wirer colleague, as noted above, I provided real-time [...] changes to consciousn ess, chest pain, dypsnea. [id number] Alisia Aguirre MD [facility] - [address] [address] 04/01/2024 18:50:28 04/01/2024 19:49:17 Low back pain [id number] M54.50 48 year old female with a [...] lower extremitie s. Prior to [facility]'s visit she took an excedrin which is helping bring the paind own. Exam notable for normal vital signs, neurologic exam is grossly normal. Presentati on consistent with acute on chronic lumbar radiculopa thy, no red flags noted. I have reviewed and agree with the assessment and plan as documented by the electrical wirer. I provided real-time medical direction for this [...] Fernandez Member ID Guarantor Name 04/01/2024 1 [facility] - DOS ON OR AFTER 2022 - DUAL ELIGIBLE - [facility] OPTIONS AND ONE CARE (MEDICARE REPLACEMENT/ADV ANTAGE - HMO) Atiya Dotson [id number] Atiya Dotson Notes Date Note Type Note [...] ...................... ...................... ...................... ...................... ...................... ...................... ......... Tile Grinder Note From Inna Galvan: Sent to a [...] ...................... ...................... ...................... ...................... ...................... ......... [facility] Consulted: Alisia Aguirre ...................... ...................... ...................... ...................... ...................... ...................... ......... Disposition: Fulfilled Alisia Augirre MD [address] [facility],[address], [place], [address], [place] - [employer] Contin[employer]ELLE BALLARD 04/01/2024 19:22:50 OBGyn Episode No OBEpisode recorded.
--- OUTSIDE RECORDS SUMMARY | 2024-04-24 07:48 | XMS_ITS | Clinical Summary ---
Author Organization [employer] Address [address] [place] [address] 7t [place] [address] Care Team Providers Care 3D Specialist Name Role Phone Maddie Kim MD Primary Care Provider [phone] Allergies Active Allergy Reactions Criticality Noted Date [...] (02/23/2023 8:52 AM EST): Will refer to [facility] hand surgeon History of gastrectomy 10/06/2022 Assessment & Plan (04/02/2024 4:07 PM EST): 2009 gastric sleeve Assessment & Plan (10/06/2022 7:52 AM EDT): Refer to [facility] weight loss program for discussion of possible [...] sleeve? I think discuss portion sizes with civil engineering design draftsperson Assessment & Plan (01/29/2022 10:40 AM EST): [...] re-iterated that she can reach us through [facility] if she needs anything Assessment & Plan [...] Department Care Team Description 04/14/2024 Orders Only [facility] [address] [place] [phone] Maddie Kim MD 04/10/2024 Telephone [facility] [address] [place] [phone] Maddie Kim MD CRITICAL RESULT CALL 04/09/2024 Refill [facility] [place] [address] Maddie Kim MD 04/02/2024 3:30 PM EST Office Visit [facility] [place] [address] Maddie Kim MD Schizoaffective disorder, bipolar type (CMS/HCC) (Primary Dx); Opioid abuse (CMS/[facility]); Class 3 severe obesity with serious comorbidity and body mass index (BMI) of 40.0 to 44.9 in adult, unspecified obesity type (CMS/HCC); Dietary counseling; Exercise counseling; History of gastrectomy; Tachycardia 04/02/2024 Travel 04/02/2024 Telephone [facility] [address] [place] [phone] Maddie Kim MD No Show 03/31/2024 Telephone [facility] [address] [place] [phone] Maddie Kim MD Call Back Request 03/28/2024 Telephone [facility] [address] [place] [phone] Maddie Kim MD FYI 03/28/2024 Patient Outreach [facility] [address] [place] [phone] Maddie Kim MD Transition Of Care (Tcm) (HDF- Unscheduled- PATIENT REQ. A HDF WITHIN 7 DAYS AND ONLY WITH HER PCP) 03/28/2024 Telephone [facility] [address] [place] [phone] Maddie Kim MD Hospital Follow-up 03/24/2024 Telephone [facility] [address] [place] [phone] Maddie Kim MD 03/24/2024 Telephone [facility] [address] [place] [phone] Sheila Rene, RN NTTS 03/20/2024 Telephone [facility] [address] [place] [phone] NUTRITION APPT REQUEST 03/04/2024 Telephone [facility] [address] [place] [phone] Maddie Kim MD verbal order 03/04/2024 Refill [facility] [address] [place] [phone] aMddie Kim MD 02/22/2024 Telephone [facility] [address] [place] [phone] Maddie Kim MD 02/22/2024 Orders Only [facility] [address] [place] [address] Maddie Kim MD 02/21/2024 Telephone [facility] [address] [place] [address] Maddie Kim MD FYI 02/21/2024 Refill [facility] [address] [place] [address] Maddie Kim MD 02/15/2024 Telephone [facility] [address] [place] [address] Maddie Kim MD FYI 02/15/2024 Refill [facility] [address] [place], [place] [phone] Maddie Kim MD from Last 3 Months Immunizations Name Administration [...] Info) Description 07/01/2024 11:30 AM EDT Telemedicine [facility] [address] [place] [address] Maddie Kim MD 230 [place] [address] Health Maintenance Due Date Last Done Comments [...] 12:47 PM EST) Cortisol Random 5.7 ug/dL [facility] Comment:Reference Range*: Be fore 10 am 6.2-19.4 ug/dL After 5 pm 2.3-11.9 ug/dL*Please interpret above results accordingly.This test was performed using the [employer] chemiluminescentmethod. Values obtained from different assay methods cannotbe used interchangeably.Patients receiving fludrocortisone, prednisolone orprednisone may show artificially elevated cortisol valuesdue to cross-reactivity. 04/14/2024 12:4 7 PM EST 04/14/2024 12:47 PM EST us Generic External Data Provider LAB BLOOD ORDERAB LES Final Result [facility] [address] [place] [phone] * (ABNORMAL) CBC auto differential (04/14/2024 12:47 PM EST) Only the most recent of2 resultswithin the time period is included. White Blood Count 6.5 4.8 - 10.8 X10*3/uL [facility] Red Blood Count 3.74(L) 4.20 - 5.50 X10*6/uL [facility] Hemoglobin 9.4(L) 12.0 - 16.0 g/dl [facility] Hematocrit 29.6(L) 37.0 - 47.0 % [facility] Mean Corpuscular Volume 79.1(L) 80.0 - 98.0 fL [facility] Mean Corpuscular Hemoglobin 25.1(L) 27.0 - 33.0 pg [facility] Mean Corpuscular HGB Conc 31.8 31.0 - 35.0 g/dl [facility] Red Cell Distribution Width 16.1(H) 11.0 - 16.0 % [facility] Platelet Count 530(H) 160 - 400 X10*3/uL [facility] Mean Platelet Volume 9.6 9.4 - 12.3 fL [facility] Neutrophils Percent Auto 56.2 45 - 73 % [facility] Imm Gran Pct Auto 0.6(H) 0.0 - 0.4 % [facility] Lymphocytes Percent Auto 32.5 20 - 40 % [facility] Monocytes Percent Auto 8.8 2 - 11 % [facility] Eosinophils Percent Auto 1.4 0 - 4 % [facility] Basophils Percent Auto 0.5 0 - 2 % [facility] NRBC Pct Auto 0.0 0.0 - 0.2 /100WBC [facility] Neutrophils Absolute Auto 3.7 2.0 - 8.3 x10*3/uL [facility] Imm Gran Abs Auto 0.04(H) 0.00 - 0.03 X10*3/uL [facility] Lymphocytes Absolute Auto 2.1 1.2 - 4.9 X10*3/uL [facility] Monocytes Absolute Auto 0.6 0.1 - 1.2 X10*3/uL [facility] Eosinophils Absolute Auto 0.1 0.0 - 0.4 X10*3/uL [facility] Basophils Absolute Auto 0.0 0.0 - 0.2 X10*3/uL [facility] NRBC Abs Auto 0.000 0.0 - 0.012 X10*3/uL [facility] 04/14/2024 12:4 7 PM EST 04/14/2024 12:47 PM EST us Gil Brewer MD LAB BLOOD ORDERABLES Final Resul t Performing Organization Address [facility] Co de Phone Number [facility] [address] [place] [phone] * Iron And Total Iron Binding Capacity (04/14/2024 12:47 PM EST) Iron 77 30 - 160 mcg/dL [facility] Total Iron Binding Capacity 339 228 - 428 mcg/dL [facility] Percent Iron Saturation 23 15 - 50 % [facility] Unsaturated Iron Binding 262 ug/dL [facility] 04/14/2024 12:4 7 PM EST 04/14/2024 12:47 PM EST us Gil Brewer MD LAB BLOOD ORDERABLES Final Resul t Performing Organization Address [facility] Phone Number [facility] [address] [place] [phone] * (ABNORMAL) Immunofixation, Serum (04/14/2024 12:47 PM EST) IMMUNOGLOBULIN G 1545 600 - 1640 mg/dL [facility] IMMUNOGLOBULIN A 197 47 - 310 mg/dL [facility] Immunoglobulin M 46(A) 50 - 300 mg/dL [facility] Comment:THIS TEST WAS PERFOR MED AT:[employer] [place] [phone] PARKINSON MD Immunofixation Result SEE NOTE [facility] Comment:Normal pattern. No m onoclonal proteins detected. 04/14/2024 12:4 7 PM EST 04/14/2024 12:47 PM EST Generic External Data Provider LAB BLOOD ORDERAB LES Final Result Performing Organization Address City/[facility] Co de Phone Number [facility] [address] [place] [phone] * Ferritin (04/14/2024 12:47 PM EST) Ferritin 61 10 - 250 ng/mL [facility] 04/14/2024 12:4 7 PM EST 04/14/2024 12:47 PM EST us Gil Brewer MD LAB BLOOD ORDERABLES Final Resul t Performing Organization Address [facility]/ZIP Co de Phone Number [facility] [address] [place] [phone] * (ABNORMAL) Basic Metabolic Panel (04/14/2024 12:47 PM EST) Only the most recent of2 resultswithin the time period is included. Sodium 139 135 - 145 mmol/L [facility] Potassium 4.3 3.3 - 5.1 mmol/L [facility] Chloride 104 96 - 108 mmol/L [facility] Carbon Dioxide 27 22 - 29 mmol/L [facility] Anion Gap 12 12 - 20 [facility] Urea Nitrogen (BUN) 7(L) 9 - 16 mg/dL [facility] Creatinine, Serum 0.69 0.5 - 1.4 mg/dL [facility] Estimated Glomerular Filt Rate >60 [facility] Comment:Chronic Kidney Disea se: Estimated GFR < 60 mL/min/1.43v7Idkbyx Kidney Disease: Estimated GFR < 15 mL/min/1.73m2 Glucose 84 60 - 115 mg/dL [facility] Calcium 9.5 8.4 - 10.2 mg/dL [facility] 04/14/2024 12:4 7 PM EST 04/14/2024 12:47 PM EST us Gil Brewer MD LAB BLOOD ORDERABLES Final Resul t Performing Organization Address City/[facility]/ZIP Co de Phone Number [facility] [address] [place] [phone] * Sodium Without creatinine, Random Urine (04/14/2024 12:45 PM EST) Sodium Urine Random 47.0 mmol/L [facility] 04/14/2024 12:4 5 PM EST 04/14/2024 1:55 PM EST us Generic External Data Provider LAB BLOOD ORDERAB LES Final Result Performing Organization Address City/[facility]/ZIP Co de Phone Number [facility] [address] [place] [phone] * (ABNORMAL) Osmolality, Urine (04/14/2024 12:45 PM EST) OSMOLALITY URINE 212(L) 373 - 1,093 mosm/kg [facility] 04/14/2024 12:4 5 PM EST 04/14/2024 1:55 PM EST us Generic External Data Provider LAB URINE ORDERAB LES Final Result Performing Organization Address [facility] Co de Phone Number [facility] [address] [place] [phone] * TSH W/Reflex to FT4 (04/02/2024 4:26 PM EST) TSH reflex Free T4 1.46 0.32 - 4.0 uIU/mL [facility] Blood Venous blood specimen / Unknown 04/02/2024 4:26 PM EST 04/02/2024 5:31 PM EST us Maddie Kim MD LAB BLOOD ORDERABLES Final Res ult Performing Organization Address [facility] Co de Phone Number [facility] [address] [place] [phone] * Pap Smear (01/22/2024 8:03 AM EST) 01/22/2024 8:03 AM EST 01/23/2024 11:00 AM EST Narrative [facility] - 01/25/2024 12:58 PM EST ----- ------- Name: Atiya Esparza ?Age/Sex: 48/F ? : 1975 Unit#: [id number] ?? Attend Dr: John Schmidt MD ?Re01/22/24 ?Status: DEP REF ? Location: HO.LNP ?Disch: ? ----- ------- SPEC : [id number] ?RECD: 01/23/24-1099 ? STATUS: ??SOUT ? REQ NUM: [id number] ? MAMADOU: 01/22/24-802 ? SUBM DR: John [...] Copies To: ?? Maddie Kim ?? [address] ?? [place] [address] ?? [phone] ?? John Schmidt MD ?? [facility] ?? [address] [facility] [address] ?? [place] [address] ?? [phone] ----- ------- Signed (signature on file) YASSINE Garcia (ASCP) 01/25/24 1258 ? ----- ------- ? END OF REPORT ? us Generic External Data Provider LAB CYTOLOGY ORDE RABLES Final Result [facility] [address] [place] [phone] [phone] * Lipid Panel, Standard (09/08/2023 8:43 AM EDT) Triglycerides 57 <150 mg/dL [facility] Comment:Desirable Triglyceri de: less than 150 mg/dLBorderline High Triglyceride 150-199 mg/dLHigh Triglyceride: 200-499 mg/dLVery High Triglyceride: greater than or equal to 5OO mg/dL Cholesterol 158 <200 mg/dL [facility] Comment:Desirable Cholestero l: less than 200 mg/dLBorderline High Cholesterol: 200-239 mg/dLHigh Cholesterol: greater than 239 mg/dL LDL Cholesterol Calculated 87 <100 mg/dL [facility] Comment:Desirable LDL: less than 100 mg/dLNear Optimal/Above Optimal LDL: 110- 129 mg/dLBorderline High LDL: 130-159 mg/dLHigh LDL: 160-189 mg/dLVery High LDL: greater than or equal to 190 mg/dL HDL Cholesterol 60 >40 mg/dL [facility] Comment:Desirable HDL: great er than 40 mg/dL Note: This HDL assay may give artificially low results in patients with liver disease. Blood Venous blood specimen / Unknown 09/08/2023 8:43 AM EDT 09/08/2023 11:09 AM EDT us Maddie Kim MD LAB BLOOD ORDERABLES Final Res ult [facility] [address] [place] [address] [phone] * BI Mammogram Screening Tomosynthesis Bilateral (05/04/2023 4:02 PM EDT) Anatomical Region Laterality Modality Breast Bilateral Mammography 05/04/2023 4:02 PM EDT Narrative 05/26/2023 3:06 PM EDT ? [facility] [place] ? [address] ?[place] [address] ? Mammography Report ? Signed ? Patient: Veblen,Atiya ?MR#: [id number] ? : 1975 ?Acct:[id number] ? Age/Sex: 47 / F ?ADM Date: 05/04/23 ? Loc: HO.MAMMO ? Attending Dr: Maddie Kim MD ? Ordering Physician: Maddie Kim ?Results: 1Negative ? Date of Service: 05/04/23 ?Follow Up: 1 Year From Orig ?? inal Mammogram ? Procedure(s): MM tomosynthesis screening BI ?? Accession Number(s): [id number] ? cc: Maddie Kim ? EXAMINATION: ?? [...] 1503 ? DD/ 1602 ? TD/TT: ? Termite Helper: ? Procedure Note Zoya Coker - 05/26/2023 [facility] [address] [place] [address] [place] [address] Mammography Report Signed Patient: Zain Esparza#: [id number] : 1975Acct:[id number] Age/Sex: 47 / FADM Date: 05/04/23 Loc: JINO Attending Dr: Maddie Kim MD Ordering Physician: Jaja Kimults: 1Negative Date of Service: 05/04/23Follow Up: 1 Year From Orig inal Mammogram Procedure(s): MM tomosynthesis screening BI Accession Number(s): [id number] cc: Maddie Kim EXAMINATION: MM SCREENING DIGITAL [...] in OV> 05/26/23 1503 DD/ 1602 TD/TT: Termite Helper: Result [facility] Maddie Kim MD IMG BI PROCEDURES Final Result * HPV GENOTYPES 16,18/45 (12/20/2020 12:00 AM EDT) HPV 16 RNA NOT DETECTED NOT DETECTED [employer] [facility] HPV 18/45 RNA NOT DETECTED NOT DETECTED [facility] [email or web address] [facility] Comment: Methodology: Training Designer Mediated Amplification The analytical performance characteristics of this assay have been determined by [employer]. The modifications have not been cleared or approved by the FDA. This assay has been validated pursuant to the CLIA regulations and is used for clinical purposes. 12/20/2020 Maddie Kim MD LAB BLOOD ORDERABLES Final Res ult [facility] [address] from Last 3 Months or Most Recently Relevant to Health Maintenance Insurance [facility] Care Teams 3D Specialist Relationship Specialty Start Date End Date Maddie Kim MD [address] [place] [phone] PCP - General Family Medicine 07/12/20 [facility] 01/17/22
--- OUTSIDE RECORDS SUMMARY | 2024-04-24 07:48 | XMS_ITS | Encounter Summary ---
Author Organization [employer] Address [address] [facility] 7t [place] [address] Care Team Providers Care Lacquer Dipping Machine Operator Name Role Phone Maddie Kim MD Primary Care Provider [phone] Reason for Visit * Reason Onset Date Comments Med Refill 05/10/2023 Encounter Details Date Type Department Care Team ([facility] st Contact Info) Description 05/10/2023 Refill [facility] MEDICINE [address] [place], [place] [phone] Maddie Kim MD [address] [place], [place] [phone] Chronic bilateral low back pain without sciatica [...] Telemedicine [facility] MEDICINE [address] [place] [address] Maddie Kim MD [address] [place] [address] documented as of this encounter Visit Diagnoses Diagnosis Chronic bilateral low back pain without sciatica documented in this encounter Additional Health Concerns Assessment Noted Time PHQ-9 Depression Total Score: 0 05/30/19 23 3:26 PM EDT documented as of this encounter Care Teams Lacquer Dipping Machine Operator Relationship Specialty Start Date End Date Maddie Kim MD [address] [place], [place] [phone] PCP - General Family Medicine 07/12/20 Willie Gage 01/17/22 documented as of this encounter
--- OUTSIDE RECORDS SUMMARY | 2024-04-24 07:48 | XMS_ITS | Encounter Summary ---
Author Organization [employer] Address [address] [place] [address] 7t [place] [address] Care Team Providers Care Director Of Orthopedics Name Role Phone Maddie Kim MD Primary Care Provider [phone] Encounter Details Date Type Department Care Team ([facility] Contact Info) Description 07/05/2022 Orders Only [facility] MEDICINE [address] [place] [address] [phone] Maddie Kim MD [address] [place] [address] [phone] Social History Tobacco Use Types Packs/Day Years [...] Upcoming Encounters Date Type Department Care Team ([facility] Contact Info) Description 07/01/2024 11:30 AM EDT Telemedicine [facility] MEDICINE [address] [place] [address] [phone] Maddie Kim MD [address] [place] [address] [phone] documented as of this encounter Visit Diagnoses Not on filedocumented in this encounter Additional Health Concerns Assessment Noted Time PHQ-9 Depression Total Score: 0 05/30/19 23 3:26 PM EDT documented as of this encounter Care Teams Director Of Orthopedics Relationship Specialty Start Date End Date Maddie Kim MD [address] [place] [address] PCP - General Family Medicine 07/12/20 Willie Gage 01/17/22 documented as of this encounter
--- OUTSIDE RECORDS SUMMARY | 2024-04-24 07:48 | XMS_ITS | Encounter Summary ---
Author Organization [employer] Address [address] [place] [address] 7t [place] [address] Care Team Providers Care Coremaker Name Role Phone Maddie Kim MD Primary Care Provider [phone] Reason for Visit * Reason Onset Date Comments c/b request 11/10/2022 Encounter Details Date Type Department Care Team ([facility] st Contact Info) Description 11/10/2022 Telephone [facility] MEDICINE [address] [place] [address] [phone] Maddie Kim MD [address] [place], [place] [phone] c/b request Social History Tobacco Use Types [...] to medication reconciliation. Please contact [employer] at [phone] documented in this encounter Plan of Treatment Upcoming Encounters Date Type Department Care Team (Late st Contact Info) Description 07/01/2024 11:30 AM EDT Telemedicine [facility] MEDICINE [address] [place] [address] Maddie Kim MD [address] [place] [phone] documented as of this encounter Visit Diagnoses Diagnosis Gastroesophageal reflux disease without esophagitis Esophageal reflux documented in this encounter Additional Health Concerns Assessment Noted Time PHQ-9 Depression Total Score: 0 05/30/19 23 3:26 PM EDT documented as of this encounter Care Teams Coremaker Relationship Specialty Start Date End Date Maddie Kim MD [address] [place] [address] [phone] PCP - General Family Medicine 07/12/20 Willie Gage 01/17/22 documented as of this encounter
--- OUTSIDE RECORDS SUMMARY | 2024-04-24 07:48 | XMS_ITS | Encounter Summary ---
Author Organization [employer] Address [address] [place] [address] [address]t [place] [address] Care Team Providers Care Service Restorer Emergency Name Role Phone Maddie Kim MD Primary Care Provider [phone] Encounter Details Date Type Department Care Team ([facility] Contact Info) Description 03/30/[address] [facility] MEDICINE [address] [place] [address] [phone] Maddie Kim MD [address] [place] [address] [phone] Social History Tobacco Use Types Packs/Day Years [...] 11:30 AM EDT Telemedicine [facility] MEDICINE [address] [place] [address] [phone] Maddie Kim MD [address] [place] [address] [phone] documented as of this encounter Visit Diagnoses Not on filedocumented in this encounter Care Teams Service Restorer Emergency Relationship Specialty Start Date End Date Maddie Kim MD [address] [place] [address] PCP - General Family Medicine 07/12/20 Willie Gage 01/17/22 documented as of this encounter
--- OUTSIDE RECORDS SUMMARY | 2024-04-24 07:48 | XMS_ITS | Encounter Summary ---
Author Organization [employer] Address [address] [place] [address] [address] [place] [address] Care Team Providers Care Passenger Booking Clerk Name Role Phone Maddie Kim MD Primary Care Provider [phone] Reason for Visit * Reason Onset Date Comments Hospital Follow-up 03/28/2024 Encounter Details Date Type Department Care Team ([facility] Contact Info) Description 03/28/2024 Telephone [facility] MEDICINE [address] [place], [place] [phone] Maddie Kim MD [address] [place], [place] [phone] Hospital Follow-up Social History Tobacco Use Types [...] from pt requesting a HDF appt. Hospital: [facility] Date of admission: 03/24/24 Discharge date: 03/27/24 Diagnosed: Hyponatremia *Send message to [facility] Clinical Care Coordinators documented in this encounter Plan of Treatment Upcoming Encounters Date Type Department Care Team (Late st Contact Info) Description 07/01/2024 11:30 AM EDT Telemedicine [facility] MEDICINE [address] [place] [phone] Maddie Kim MD [address] [place] [phone] documented as of this encounter Visit Diagnoses Not on filedocumented in this encounter Additional Health Concerns Assessment Noted Time PHQ-9 Depression Total Score: 3 06/15/19 24 11:48 AM EDT documented as of this encounter Care Teams Passenger Booking Clerk Relationship Specialty Start Date End Date Maddie Kim MD [address] [place] [phone] PCP - General Family Medicine 07/12/20 Willie Gage 11/29/22 documented as of this encounter
--- OUTSIDE RECORDS SUMMARY | 2024-04-24 07:48 | XMS_ITS | Encounter Summary ---
Author Organization [employer] Address [address] [facility] 7t [place] [address] Care Team Providers Care Residential Advisor Name Role Phone Maddie Kim MD Primary Care Provider [phone] Reason for Visit * Reason Onset Date Comments Med Refill 04/12/2023 Encounter Details Date Type Department Care Team ([facility] st Contact Info) Description 04/12/2023 Refill [facility] MEDICINE [address] [place], [place] [phone] Maddie Kim MD [address] [place], [place] [phone] Chronic bilateral low back pain without sciatica [...] 07/01/2024 11:30 AM EDT Telemedicine [facility] MEDICINE [address] [place] [address] Maddie Kim MD [address] [place] [address] documented as of this encounter Visit Diagnoses Diagnosis Chronic bilateral low back pain without sciatica documented in this encounter Additional Health Concerns Assessment Noted Time PHQ-9 Depression Total Score: 0 05/30/19 23 3:26 PM EDT documented as of this encounter Care Teams Residential Advisor Relationship Specialty Start Date End Date Maddie Kim MD [address] [place] [address] PCP - General Family Medicine 07/12/20 Willie Gage 01/17/22 documented as of this encounter
--- OUTSIDE RECORDS SUMMARY | 2024-04-24 07:48 | XMS_ITS | Clinical Summary ---
Author Organization Unknown Care Team Providers Care Pain Medicine Physician Name Role Phone MARLON AHUMADA, JEAN-PIERRE Unavailable Unavailable ENRIQUE WEINSTEINW, WINNIE Unavailable Unavailable KATINA RN, ANASTACIA Unavailable Unavailable SMILEY RN, JENNI Unavailable Unavailable JAVIER RN, GABBY Unavailable Unavaila ble Payers Payer Name Policy Type Policy Number Effective Date Expira tion Date [facility] [id number] [place] [id number] MEDICARE - [facility] [place] - PD [id number] Problems Condition Name Condition Details Condition Category [...] 2020-02 00:00: 00 03-07 00:00 :00 No [id number] 10 mg 3 TIMES DAILY 10 mg 3 TIMES DAILY (route: oral) Med Classific ation: Locomotor System buprenorphi ne 4 mg-naloxone 1 mg sublingual film 2020-02 00:00: 00 04-05 00:00 :00 No [id number] Per instruc tions NEEDED Per instructio ns NEEDED (route: sublingual ) Med Classific ation: Chemical Dependenc y, Agents to Treat divalproex 250 mg tablet,kassandra yed release 2020-02 00:00: 00 04-05 23:59 :00 No [id number] 250 mg DAILY 250 mg DAILY (route: oral) Med Classific ation: Central Nervous System Agents divalproex ER 500 mg tablet,exte nded release 24 hr 2020-02 00:00: 00 04-05 00:00 :00 No [id number] 500 mg 2 TIMES DAILY 500 mg 2 TIMES DAILY (route: oral) Med Classific ation: Central Nervous System Agents ferrous sulfate 325 mg (65 mg iron) tablet 2020-02 00:00: 00 04-05 00:00 :00 No [id number] 1 tablet DAILY 1 tablet DAILY (route: oral) Med Classific ation: Electroly te Balance-N utritiona l Products Invega Sustenna 156 mg/mL intramuscul ar syringe 2020-02 00:00: 00 05-11 23:59 :00 No [id number] 156 mg MONTHLY 156 mg MONTHLY (route: intramuscu lar) Med Classific ation: Central Nervous System Agents levothyroxi ne 25 mcg tablet 2020-02 00:00: 00 03-05 23:59 :00 No [id number] 25 mcg DAILY 25 mcg DAILY (route: oral) Med Classific ation: Endocrine lisinopril 5 mg tablet 2020-02 00:00: 00 11-21 23:59 :00 No [id number] 5 mg DAILY 5 mg DAILY (route: oral) Med Classific ation: Cardiovas cular Therapy Agents nicotine (polacrilex ) 4 mg gum 2020-02 00:00: 00 09-12 23:59 :00 No [id number] 4 gum NEEDED 4 gum NEEDED (route: buccal) Med Classific ation: Chemical Dependenc y, Agents to Treat nicotine 21mg/24hr-1 4mg/24hr-7m g/24hr daily transderm patches,seq uentl 2020-02 00:00: 00 09-12 23:59 :00 No [id number] 21 patch NEEDED 21 patch NEEDED (route: transderma l) Med Classific ation: Chemical Dependenc y, Agents to Treat nystatin 500,000 unit tablet 2020-02 00:00: 00 04-05 00:00 :00 No [id number] In unit 4 TIMES DAILY [id number] In unit 4 TIMES DAILY (route: oral) Med Classific ation: Anti-Infe ctive Agents omeprazole 20 mg tablet,kassandra yed release 2020-02 00:00: 00 Yes [id number] 20 mg DAILY 20 mg DAILY (route: oral) Med Classific ation: Gastroint estinal Therapy Agents prazosin 5 mg capsule 2020-02 00:00: 00 02-14 23:59 :00 No [id number] 5 capsule BEDTIME 5 capsule BEDTIME (route: oral) Med Classific ation: Cardiovas cular Therapy Agents trazodone 50 mg tablet 2020-02 00:00: 00 01-17 23:59 :00 No [id number] 50 mg NEEDED 50 mg NEEDED (route: oral) Med Classific ation: Central Nervous System Agents albuterol sulfate HFA 90 mcg/actuati on aerosol inhaler 04-05 00:00: 00 Yes [id number] 2 puff NEEDED 2 puff NEEDED (route: inhalation ) Med Classific ation: Respirato ry Therapy Agents Aspercreme with Aloe 10 % topical 04-05 00:00: 00 09-12 23:59 :00 No [id number] Per instruc tions NEEDED Per instructio ns NEEDED (route: topical) Med Classific ation: Dermatolo gical cyclobenzap rine 5 mg tablet 04-05 00:00: 00 01-17 23:59 :00 No [id number] 5 mg NEEDED 5 mg NEEDED (route: oral) Med Classific ation: Locomotor System Depakote 500 mg tablet,kassandra yed release 04-05 00:00: 00 05-06 23:59 :00 No [id number] 1000 mg 2 TIMES DAILY 1000 mg 2 TIMES DAILY (route: oral) Med Classific ation: Central Nervous System Agents diphenhydra mine 25 mg capsule 04-05 00:00: 00 06-01 23:59 :00 No [id number] 50 mg NEEDED 50 mg NEEDED (route: oral) Med Classific ation: Respirato ry Therapy Agents hydroxyzine HCl 50 mg tablet 2-15 00:00: 00 06-01 23:59 :00 No [id number] 50 mg 3 TIMES DAILY 50 mg 3 TIMES DAILY (route: oral) Med Classific ation: Central Nervous System Agents naltrexone 50 mg tablet 2-15 00:00: 00 06-01 23:59 :00 No [id number] 50 mg DAILY 50 mg DAILY (route: oral) Med Classific ation: Antidotes and other Reversal Agents Narcan 4 mg/actuatio n nasal spray 2-15 00:00: 00 06-01 23:59 :00 No [id number] Per instruc tions NEEDED Per instructio ns NEEDED (route: nasal) Med Classific ation: Antidotes and other Reversal Agents pyridoxine (vitamin B6) 25 mg tablet 2-15 00:00: 00 06-01 23:59 :00 No [id number] 25 mg DAILY 25 mg DAILY (route: oral) Med Classific ation: Electroly te Balance-N utritiona l Products Invega Sustenna 234 mg/1.5 mL intramuscul ar syringe 3-24 00:00: 00 Yes [id number] Per instruc tions MONTHLY Per instructio ns MONTHLY (route: intramuscu lar) Med Classific ation: Central Nervous System Agents Invega Sustenna 234 mg/1.5 mL intramuscul ar syringe 8-14 00:00: 00 11-30 23:59 :00 No [id number] 234 mg MONTHLY 234 mg MONTHLY (route: intramuscu lar) Med Classific ation: Central Nervous System Agents Celebrex 200 mg capsule 2021-02 0-26 00:00: 00 03-20 23:59 :00 No [id number] 200 mg 2 TIMES DAILY 200 mg 2 TIMES DAILY (route: oral) Alternate Route: NONE. Med Classific ation: Analgesic , Anti-infl ammatory or Antipyret ic Celebrex 200 mg capsule 1-30 00:00: 00 01-10 23:59 :00 No [id number] 200 mg DAILY 200 mg DAILY (route: oral) Alternate Route: NONE. Med Classific ation: Analgesic , Anti-infl ammatory or Antipyret ic docusate sodium 100 mg capsule 30 00:00: 00 01-29 23:59 :00 No [id number] 1 capsule 2 TIMES DAILY 1 capsule 2 TIMES DAILY (route: oral) Alternate Route: NONE. Med Classific ation: Gastroint estinal Therapy Agents Eliquis 2.5 mg tablet 30 00:00: 00 09-12 23:59 :00 No [id number] 1 tablet 2 TIMES DAILY 1 tablet 2 TIMES DAILY (route: oral) Med Classific ation: Hematolog ical Agents oxycodone 5 mg tablet 03-20 00:00: 00 04-18 23:59 :00 No [id number] Per instruc tions DIRECTED Per instructio ns DIRECTED (route: oral) Alternate Route: NONE. Med Classific ation: Analgesic , Anti-infl ammatory or Antipyret ic tramadol 50 mg tablet 03-20 00:00: 00 04-18 23:59 :00 No [id number] Per instruc tions DIRECTED Per instructio ns DIRECTED (route: oral) Med Classific ation: Analgesic , Anti-infl ammatory or Antipyret ic gabapentin 300 mg capsule 3-29 00:00: 00 01-10 23:59 :00 No [id number] 1 capsule 3 TIMES DAILY 1 capsule 3 TIMES DAILY (route: oral) Med Classific ation: Central Nervous System Agents cyclobenzap rine 5 mg tablet 7-27 00:00: 00 01-10 23:59 :00 No [id number] 1 tablet 3 TIMES DAILY 1 tablet 3 TIMES DAILY (route: oral) Med Classific ation: Locomotor System baclofen 10 mg tablet 2022-02 1-24 00:00: 00 03-30 23:59 :00 No [id number] 1 tablet DIRECTED 1 tablet DIRECTED (route: oral) Med Classific ation: Locomotor System docusate sodium 100 mg capsule 2022-02 00:00: 00 Yes [id number] 1 capsule NEEDED 1 capsule NEEDED (route: oral) Med Classific ation: Gastroint estinal Therapy Agents acetaminoph en 300 mg-codeine 30 mg tablet 2-09 00:00: 00 05-15 23:59 :00 No [id number] 1 tablet 3 TIMES DAILY 1 tablet 3 TIMES DAILY (route: oral) Med Classific ation: Analgesic , Anti-infl ammatory or Antipyret ic Paxlovid 300 mg (150 mg x 2)-100 mg tablets in a dose pack 03-30 00:00: 00 04-03 23:59 :00 No [id number] 3 tablet 2 TIMES DAILY 3 tablet 2 TIMES DAILY (route: oral) Med Classific ation: Anti-Infe ctive Agents tizanidine 4 mg tablet 03-30 00:00: 00 01-03 23:59 :00 No [id number] 1 tablet 3 TIMES DAILY 1 tablet 3 TIMES DAILY (route: oral) Med Classific ation: Locomotor System Depakote 500 mg tablet,kassandra yed release 3-23 00:00: 00 03-31 23:59 :00 No [id number] 1000 mg 2 TIMES DAILY 1000 mg 2 TIMES DAILY (route: oral) Med Classific ation: Central Nervous System Agents multivitami n tablet -15 00:00: 00 04-21 23:59 :00 No [id number] 1 tablet DIRECTED 1 tablet DIRECTED (route: oral) Med Classific ation: Electroly te Balance-N utritiona l Products gabapentin 300 mg capsule 07-10 00:00: 00 Yes [id number] 2 capsule 3 TIMES DAILY 2 capsule 3 TIMES DAILY (route: oral) Med Classific ation: Central Nervous System Agents paliperidon e ER 1.5 mg tablet,exte nded release 24 hr 07-10 00:00: 00 11-22 23:59 :00 No [id number] 1 tablet DAILY 1 tablet DAILY (route: oral) Med Classific ation: Central Nervous System Agents aspirin 81 mg tablet,kassandra yed release 08-14 00:00: 00 08-28 23:59 :00 No 1 [...] Therapy Agents minoxidil 2.5 mg tablet 2023-02 0 00:00: 00 Yes 0.5 tablet DAILY 0.5 [...] nded release 24 hr 1-28 00:00: 00 04-21 23:59 :00 No 2 tablet EVERY PM 2 tablet EVERY PM (route: oral) Med Classific ation: Endocrine thiamine HCl (vitamin B1) 100 mg tablet 03-24 00:00: 00 Yes 1 tablet EVERY AM 1 tablet EVERY AM (route: oral) Med Classific ation: Electroly te Balance-N utritiona l Products Seroquel 50 mg tablet 03-24 00:00: 00 04-21 23:59 :00 No 1 tablet BEDTIME 1 tablet BEDTIME (route: oral) Med Classific ation: Central Nervous System Agents cyclobenzap rine 10 mg tablet 2023-0218 00:00: 00 Yes 1 tablet 3 TIMES DAILY 1 tablet 3 TIMES DAILY (route: oral) Med Classific ation: Locomotor System Hydrocil Instant oral packet 03-28 00:00: 00 Yes 1 packet DAILY 1 [...] Treat Depakote 250 mg tablet,kassandra yed release 2- 00:00: 00 04-21 23:59 :00 No 1 tablet 2 TIMES DAILY 1 tablet 2 TIMES DAILY (route: oral) Med Classific ation: Central Nervous System Agents Depakote 500 mg tablet,kassandra yed release 2-11 00:00: 00 04-21 23:59 :00 No 1 tablet 2 TIMES DAILY 1 tablet 2 TIMES DAILY (route: oral) Med Classific ation: Central Nervous System Agents Vitamin D3 50 mcg (2,000 unit) tablet 2 00:00: 00 Yes 2 tablet EVERY AM 2 tablet EVERY AM (route: oral) Med Classific ation: Electroly te Balance-N utritiona l Products nitrofurant oin macrocrysta l 100 mg capsule 2-11 00:00: 00 04-06 23:59 :00 No 1 capsule 2 TIMES DAILY 1 capsule 2 TIMES DAILY (route: oral) Med Classific ation: Genitouri nary Therapy clonazepam 0.5 mg tablet 04-04 00:00: 00 04-09 23:59 :00 No 1 tablet DAILY 1 tablet DAILY (route: oral) Med Classific ation: Central Nervous System Agents propranolol 10 mg tablet 04-04 00:00: 00 Yes 1-2 tablet 3 TIMES DAILY 1-2 tablet 3 TIMES DAILY (route: oral) Med Classific ation: Cardiovas cular Therapy Agents ferrous gluconate 324 mg (37.5 mg iron) tablet 04-10 00:00: 00 04-21 23:59 :00 No 1 tablet DIRECTED 1 tablet DIRECTED (route: oral) Med Classific ation: Electroly te Balance-N utritiona l Products Depakote 250 mg tablet,kassandra yed release 04-21 00:00: 00 Yes 1 tablet BEDTIME 1 tablet BEDTIME (route: oral) Med Classific ation: Central Nervous System Agents Depakote 500 mg tablet,kassandra yed release 04-21 00:00: 00 Yes 1 tablet EVERY AM 1 tablet EVERY AM (route: oral) Med Classific ation: Central Nervous System Agents Topamax 50 mg tablet 04-21 00:00: 00 Yes 1 tablet BEDTIME 1 tablet BEDTIME (route: oral) Med Classific ation: Central Nervous System Agents Vraylar 3 mg capsule 04-21 00:00: 00 Yes 1 capsule BEDTIME 1 capsule BEDTIME (route: oral) Med Classific ation: Central Nervous System Agents ferrous gluconate 324 mg (37.5 mg iron) tablet 04-21 00:00: 00 Yes 1 tablet EVERY AM 1 tablet EVERY AM (route: oral) Med Classific ation: Electroly te Balance-N utritiona l Products HYDROCODONE -ACETAMINOP HEN ORAL 8-19 00:00: 00 10-12 00:00 :00 No 5-325 mg 5-325 mg (route: ) Med Classific ation: ANALGESIC , ANTI-INFL AMMATORY OR ANTIPYRET IC DOCUSATE SODIUM ORAL 8 00:00: 00 10-19 00:00 :00 No 100 mg1 CAPSULE TWICE A DAY 100 mg1 CAPSULE TWICE A DAY (route: ) Alternate Route: BY MOUTH . Med Classific ation: GASTROINT ESTINAL THERAPY AGENTS OXYCODONE ORAL 2018-02 008 00:00: 00 11-30 00:00 :00 No 5 mg 5 mg (route: ) Med Classific ation: ANALGESIC , ANTI-INFL AMMATORY OR ANTIPYRET IC LEVOTHYROXI NE ORAL 510 00:00: 00 08-27 00:00 :00 No 50 mcg 50 mcg (route: ) Med Classific ation: ENDOCRINE LEVOTHYROXI NE ORAL 09-28 00:00: 00 10-12 00:00 :00 No 25 mcg 25 mcg (route: ) Med Classific ation: ENDOCRINE CHLORPROMAZ INE ORAL 07-23 00:00: 00 08-22 00:00 :00 No 100 mgONE TABLET ONCE DAILY AT BEDTIME 100 mgONE TABLET ONCE DAILY AT BEDTIME (route: ) Alternate Route: (100MG) BY MOUTH . Med Classific ation: CENTRAL NERVOUS SYSTEM AGENTS CHLORPROMAZ INE ORAL 14 00:00: 00 08-10 00:00 :00 No FOR ANXIETY 25 mgONE TABLET EVERY 6 HOURS NEEDED 25 mgONE TABLET EVERY 6 HOURS NEEDED (route: ) Alternate Route: (25MG) BY MOUTH . Med Classific ation: CENTRAL NERVOUS SYSTEM AGENTS CHLORPROMAZ INE ORAL 07-23 00:00: 00 08-22 00:00 :00 No 50 [...] NERVOUS SYSTEM AGENTS FLUOXETINE ORAL 4-14 00:00: 07-02 00:00 :00 No 20 mg1 CAPSULE EVERY DAY 20 mg1 CAPSULE EVERY DAY (route: ) Alternate Route: BY MOUTH . Med Classific ation: CENTRAL NERVOUS SYSTEM AGENTS OMEPRAZOLE ORAL 7-22 00:00: 09-23 00:00 :00 No 40 mg 40 mg (route: ) Med Classific ation: GASTROINT ESTINAL THERAPY AGENTS OMEPRAZOLE ORAL 6-04 00:00: 08-22 00:00 :00 No 40 mgONE CAPSULE ONCE DAILY 40 mgONE CAPSULE ONCE DAILY (route: ) Alternate Route: (40MG) BY MOUTH . Med Classific ation: GASTROINT ESTINAL THERAPY AGENTS OMEPRAZOLE ORAL 2-08 00:00: 04-28 00:00 :00 No 20 mg1 [...] TE BALANCE-N UTRITIONA L PRODUCTS TRAMADOL ORAL 2018-0207 00:00: 11-28 00:00 :00 No 50 mg [...] ESTINAL THERAPY AGENTS IBUPROFEN ORAL 6-08 00:00: 07-30 00:00 :00 No 600 [...] ation: GASTROINT ESTINAL THERAPY AGENTS DIVALPROEX ORAL 0 7-31 00:00: 00 10-18 00:00 [...] SYSTEM AGENTS DIVALPROEX ORAL 2018-02 0-16 00:00: 01-03 00:00 :00 No 250 mg7 TABLETS [...] ation: ENDOCRINE PREDNISONE ORAL 2018-02 0-20 00:00: 00 12-14 00:00 :00 No 10 mg 6 TABS EVERYDAY X 2 DAYS THEN 4 TABS X 2 DAYS THEN 2 TABS X 2 D 10 mg 6 TABS EVERYDAY X 2 DAYS THEN 4 TABS X 2 DAYS THEN 2 TABS X 2 D (route: ) Med Classific ation: ENDOCRINE PREDNISONE ORAL 608 00:00: 00 08-04 00:00 :00 No 10 [...] SYSTEM AGENTS RISPERIDONE ORAL 0 3-29 00:00: 00 06-16 00:00 :00 No [...] ation: CENTRAL NERVOUS SYSTEM AGENTS BACLOFEN ORAL 2018-0 8-10 00:00: 00 09-30 00:00 :00 No [...] Med Classific ation: LOCOMOTOR SYSTEM LORAZEPAM ORAL 2019-0 8-12 00:00: 00 10-14 00:00 :00 No 0.5 mg 0.5 mg (route: ) Med Classific ation: CENTRAL NERVOUS SYSTEM AGENTS LORAZEPAM ORAL 2017-02 2-12 00:00: 00 03-01 00:00 :00 No 0.5 mg 0.5 mg (route: ) Med Classific ation: CENTRAL NERVOUS SYSTEM AGENTS TRAZODONE ORAL 0 7-22 00:00: 09-23 00:00 :00 No 100 mg 100 [...] NERVOUS SYSTEM AGENTS TOPIRAMATE ORAL 1-16 00:00: 03-20 00:00 :00 No 25 mg1 T [...] ation: CENTRAL NERVOUS SYSTEM AGENTS TOPIRAMATE ORAL -22 00:00: 00 09-23 00:00 :00 No 100 [...] GASTROINT ESTINAL THERAPY AGENTS DAILY VALUE ORAL 7-31 00:00: 00 10-18 00:00 :00 No 1 TABLET EVERY DAY 1 TABLET EVERY DAY (route: ) Alternate Route: BY MOUTH . Med Classific ation: ELECTROLY TE BALANCE-N UTRITIONA L PRODUCTS Vital Signs Vital Name Observation Time Observation Value Commen ts Temperature 2024-04-21 11:29:00.000 98.4 [degF] Temperature 2024-04-18 11:12:00.000 98.2 [degF] Temperature 2024-04-07 09:18:00.000 98.7 [degF] Temperature 2024-04-03 10:30:00.000 97.9 [degF] Temperature 2024-04-01 16:18:00.000 98 [degF] Temperature 2024-03-28 11:37:00.000 97.4 [degF] Temperature 2024-03-24 10:57:00.000 98 [degF] Temperature 2024-03-17 12:27:00.000 98.8 [degF] Temperature 2024-03-10 12:06:00.000 98 [degF] Pulse 2024-04-21 11:29:00.000 80 /min Pulse 2024-04-18 11:12:00.000 86 /min Pulse 2024-04-10 12:04:00.000 80 /min Pulse 2024-04-07 09:18:00.000 92 /min Pulse 2024-04-03 10:37:00.000 96 /min Pulse 2024-03-28 11:37:00.000 90 /min Pulse 2024-03-24 10:57:00.000 88 /min Pulse 2024-03-17 12:25:00.000 80 /min Pulse 2024-03-10 12:06:00.000 75 /min O2 Saturation (%) 2024-04-03 10:30:00.000 97 % Respirations 2024-04-21 11:29:00.000 16 /min Respirations 2024-04-18 11:12:00.000 16 /min Respirations 2024-04-10 12:03:00.000 16 /min Respirations 2024-04-07 09:18:00.000 16 /min Respirations 2024-04-03 10:30:00.000 16 /min Respirations 2024-03-28 11:37:00.000 16 /min Respirations 2024-03-24 10:57:00.000 16 /min Respirations 2024-03-17 12:27:00.000 16 /min Respirations 2024-03-10 12:06:00.000 16 /min Systolic Blood Pressure 2024-04-21 11:29:00.000 128 mm [Hg] Systolic Blood Pressure 2024-04-18 11:12:00.000 128 mm [Hg] Systolic Blood Pressure 2024-04-10 12:03:00.000 128 mm [...] 12:06:00.000 110 mm [Hg] Diastolic Blood Pressure 2024-04-21 11:29:00.000 90 mm [Hg] Diastolic Blood Pressure 2024-04-18 11:12:00.000 90 mm [Hg] Diastolic Blood Pressure 2024-04-10 12:03:00.000 [...] AWARENESS FOR SAFETY AND WILL NOTIFY CLINICAL MACHINE LOAD CLERK AND PHYSICIAN/PROVIDER WITH ANY CHANGE IN CONDITION. [code = SKILLED NURSE WILL MAINTAIN SITUATIONAL AWARENESS FOR SAFETY AND WILL NOTIFY CLINICAL MACHINE LOAD CLERK AND PHYSICIAN/PROVIDER WITH ANY CHANGE IN CONDITION.] [...] <paragraph>[Visit Date: 2024 by GABBY HERRERA RN]:</paragraph><paragraph>SN SPOKE WITH DR. MACIAS ON SUNDAY AND REQUESTED A REFILL FOR GABAPENTIN. SN ATTEMPTED TO COMPUTER INSTRUCTOR THE MEDICATION AT THE PHARMACY BUT PRESCRIPTION NOT RECEIVED. SN LEFT A VOICEMAIL MESSAGE WITH BELKIS KASPER AT OUTPATIENT PARTIAL HOSPITALIZATION PROGRAM. PT REPORTS SLEEPING GOOD LAST NIGHT AND REPORTS HER APPETITE IS GOOD. PT REPORTS COMPLIANCE WITH TAKING PREFILLED MEDS, APPEARS COMPLIANT PILL ORGANIZER EMPTY APPROPRIATELY. MED CHANGES MADE ORDERED AND PATIENT VERBALIZED UNDERSTANDING. PT DENIES SI/HI. CRISIS PLAN IS IN PLACE.</paragraph> <paragraph>[Visit Date: 2024 by GABBY HERRERA RN]:</paragraph><paragraph>04/18/24 PATIENT AOX3. REPORTS THAT HER MOOD IS IMPROVING. STATES THAT SHE IS CONTINUING HER OUTPATIENT HOSPITALIZATION PROGRAM UNTIL SUNDAY. PT DENIES SI/HI. CRISIS PLAN IS IN PLACE. MEDICATION LOCKBOX IS SECURE. MEDS PREFILLED THROUGH Sunday. MED CHANGES OBTAIN AND PATIENT VERBALIZED UNDERSTANDING OF ALL CHANGES.</paragraph> Encounters Start Date/Time End Date/Time Encounter Type Admission Type Attending Clinicians Care Facility Care Department Encounter ID Discharge Date Discharge Status Discharge Condition Discharge Reason Percent Goals Met 2022-01-17 00:00:00 2024-05-05 00:00:[facility] [id number] 53.13
--- OUTSIDE RECORDS SUMMARY | 2024-04-24 07:48 | XMS_ITS | Encounter Summary ---
Author Organization [employer] Address [address] [place] [address] [address] [place] [address] Care Team Providers Care Hard Candy Spinner Name Role Phone Maddie Kim MD Primary Care Provider [phone] Reason for Referral * Consultation (Routine) - Authorized Specialty Diagnoses / Procedures Referred By Sindi mejia Referred To Contact Cardiology Diagnoses Tachycardia Maddie Kim MD [address] [place] [phone] Phone: tel: fax: [facility] Referral ID Status Reason Start Date Expiration Date Visits Requested Visits Authorized [id number] Authorized Specialty Services Required 04/07/2024 04/07/2025 1 1 Reason for Visit * Reason Comments Follow-up Encounter Details Date Type Department Care Team (Latest Contact Info) Description 04/02/2024 3:30 PM EST Office Visit [facility] [address] [place] [address] [phone] Maddie Kim MD [address] [place] [address] [phone] Schizoaffective disorder, bipolar type (CMS/HCC) (Primary Dx); [...] hospital discharge followup. Was recently hospitalized at [facility] for two days to replete sodium, with hyponatremia to 119 on hydrochlorothiazide and Invega, quetiapine. Acute Concerns: BP off hydrochlorothiazide is ok <140/90 regularly, though she just in the ER overnight for elevated BP and inappropriate tachycardia after emotional argument. Resolved with Ativan. Recheck BMP today shows ongoing hyponatremia of 132 Currently attending IOP from 9-1230 M-F at [facility], wants to go for few more [...] 04/02/2024 11:00 AM Maddie Kim MD MEDICINE [facility] 04/18/2024 9:[address] DIAB NUTR [facility] Hospital Course and Medication Reconciliation [facility] (03/25/24-03/27/24) Patient presented for evaluation of [...] daily Changed: none Discontinued: hydrochlorothiazide Preferred Pharmacy: [facility] [address] [facility] [address] [facility] [id number] Pharmacist Notes Discrepancies: No recent fill found [...] Social History Social History Narrative Lives in [place] Has daughter in the area who is [...] Rfl: Vivitrol injection, , Disp: , Rfl: German Translation: Patient is bilingual and declines translation [...] Info) Description 07/01/2024 11:30 AM EDT Telemedicine [facility] [address] [place] [phone] Maddie Kim MD [address] [place] [address] Scheduled Referrals Name Type Priority [...] 14.5(H) 4.8 - 10.8 X10*3/uL [facility] Red Blood Count 4.19(L) 4.20 - 5.50 X10*6/uL [facility] Hemoglobin 10.7(L) 12.0 - 16.0 g/dl [facility] Hematocrit 31.5(L) 37.0 - 47.0 % [facility] Mean Corpuscular Volume 75.2(L) 80.0 - 98.0 fL [facility] Mean Corpuscular Hemoglobin 25.5(L) 27.0 - 33.0 pg [facility] Mean Corpuscular HGB Conc 34.0 31.0 - 35.0 g/dl [facility] Red Cell Distribution Width 13.9 11.0 - 16.0 % [facility] Platelet Count 242 160 - 400 X10*3/uL [facility] Mean Platelet Volume 10.3 9.4 - 12.3 fL [facility] Neutrophils Percent Auto 88.6(H) 45 - 73 % [facility] Imm Gran Pct Auto 0.5(H) 0.0 - 0.4 % [facility] Lymphocytes Percent Auto 3.9(L) 20 - 40 % [facility] Monocytes Percent Auto 6.7 2 - 11 % [facility] Eosinophils Percent Auto 0.2 0 - 4 % [facility] Basophils Percent Auto 0.1 0 - 2 % [facility] NRBC Pct Auto 0.0 0.0 - 0.2 /100WBC [facility] Neutrophils Absolute Auto 12.8(H) 2.0 - 8.3 x10*3/uL [facility] Imm Gran Abs Auto 0.07(H) 0.00 - 0.03 X10*3/uL [facility] Lymphocytes Absolute Auto 0.6(L) 1.2 - 4.9 X10*3/uL [facility] Monocytes Absolute Auto 1.0 0.1 - 1.2 X10*3/uL [facility] Eosinophils Absolute Auto 0.0 0.0 - 0.4 X10*3/uL [facility] Basophils Absolute Auto 0.0 0.0 - 0.2 X10*3/uL [facility] NRBC Abs Auto 0.000 0.0 - 0.012 X10*3/uL [facility] Blood Venous blood specimen / Unknown 04/02/2024 4:26 PM EST 04/02/2024 5:31 PM EST Maddie Kim MD LAB BLOOD ORDERABLES Final Res ult Performing Organization Address [facility] de Phone Number [facility] [address] [place] [address] [phone] * TSH W/Reflex to FT4 (04/02/2024 4:26 PM EST) TSH reflex Free T4 1.46 0.32 - 4.0 uIU/mL [facility] Blood Venous blood specimen / Unknown 04/02/2024 4:26 PM EST 04/02/2024 5:31 PM EST Maddie Kim MD LAB BLOOD ORDERABLES Final Res ult Performing Organization Address [facility] Co de Phone Number [facility] [address] [place] [phone] documented in this encounter Visit Diagnoses [...] documented as of this encounter Care Teams Hard Candy Spinner Relationship Specialty Start Date End Date Maddie Kim MD [address] [place] [phone] PCP - General Family Medicine 07/12/20 Willie Gage 01/17/22 documented as of this encounter
--- OUTSIDE RECORDS SUMMARY | 2024-04-24 07:48 | XMS_ITS | Encounter Summary ---
Author Organization [employer] Address [address] [place] [address] [address] [place] [address] Care Team Providers Care Optical Glass Silverer Name Role Phone Maddie Kim MD Primary Care Provider [phone] Encounter Details Date Type Department Care Team (Late Contact Info) Description 11/14/2022 Orders Only [facility] [address] [place] [address] [phone] Maddie Kim MD [address] [place] [address] [phone] Social History Tobacco Use Types Packs/Day Years [...] AM EDT Telemedicine [facility] [address] [place] [phone] Maddie Kim MD [address] [place] [address] [phone] documented as of this encounter Visit Diagnoses Not on filedocumented in this encounter Additional Health Concerns Assessment Noted Time PHQ-9 Depression Total Score: 0 05/30/19 23 3:26 PM EDT documented as of this encounter Care Teams Optical Glass Silverer Relationship Specialty Start Date End Date Maddie Kim MD [address] [place] [address] PCP - General Family Medicine 07/12/20 [facility]aring 01/17/22 documented as of this encounter
--- OUTSIDE RECORDS SUMMARY | 2024-04-24 07:48 | XMS_ITS | Encounter Summary ---
Author Organization [employer] Address [address] [facility] [address]t [place] [address] Care Team Providers Care Ship Worker Name Role Phone Maddie Kim MD Primary Care Provider [phone] Encounter Details Date Type Department Care Team ([facility] st Contact Info) Description 06/13/2023 Orders Only [facility] [address] [place], [place] [phone] Maddie Kim MD [address] [place], [place] [phone] Social History Tobacco Use Types Packs/Day Years [...] EDT Telemedicine [facility] [address] [place] [address] Maddie Kim MD [address] [place] [address] documented as of this encounter Visit Diagnoses Not on filedocumented in this encounter Additional Health Concerns Assessment Noted Time PHQ-9 Depression Total Score: 0 05/30/19 23 3:26 PM EDT documented as of this encounter Care Teams Ship Worker Relationship Specialty Start Date End Date Maddie Kim MD [address] [place] [address] PCP - General Family Medicine 07/12/20 Willie Gage 01/17/22 documented as of this encounter
--- OUTSIDE RECORDS SUMMARY | 2024-04-24 07:48 | XMS_ITS | Encounter Summary ---
Author Organization [employer] Address [address] [facility] 7t [place] [address] Care Team Providers Care Long Chain Beamer Name Role Phone Maddie Kim MD Primary Care Provider [phone] Reason for Visit * Reason Onset Date Comments Call Back Request 03/31/2024 Encounter Details Date Type Department Care Team ([facility] Contact Info) Description 03/31/2024 Telephone [facility] [address] [place], [place] [phone] Maddie Kim MD [address] [place], [place] [phone] Call Back Request Social History Tobacco Use [...] 1:23 PM EST TC placed to patient [phone] in regards to below message. RN did attempt calling patient today(see [place] encounter). Patient accepted HDF appointment for 04/02/24 at 11am for HDF. Patient to f/u PRN. * Telephone Encounter - Elier Mckinley - 03/31/2024 12:58 PM EST Tc from pt stating that a nurse Lesvia called her to transfer call to red team , proposal writer verify and there was no notes contracts administrator she states that was placed. Pt then tells proposal writer to tell nurse from red team to call her urgently. [phone] documented in this encounter Plan of Treatment Upcoming Encounters Date Type Department Care Team (Late st Contact Info) Description 07/01/2024 11:30 AM EDT Telemedicine [facility] [address] [place] [address] Maddie Kim MD [address] [place] [phone] documented as of this encounter Visit Diagnoses Not on filedocumented in this encounter Additional Health Concerns Assessment Noted Time PHQ-9 Depression Total Score: 3 06/15/19 24 11:48 AM EDT documented as of this encounter Care Teams Long Chain Beamer Relationship Specialty Start Date End Date Maddie Kim MD [address] [place] [phone] PCP - General Family Medicine 07/12/20 Willie Gage 01/17/22 documented as of this encounter
--- OUTSIDE RECORDS SUMMARY | 2024-04-24 07:48 | XMS_ITS | Encounter Summary ---
Author Organization [employer] Address [address] [facility] [address]t [place] [address] Care Team Providers Care Interior Designer Name Role Phone Maddie Kim MD Primary Care Provider [phone] Reason for Visit * Reason Onset Date Comments Durable Medical Equipment 03/16/2022 Encounter Details Date Type Department Care Team ([facility] st Contact Info) Description 03/16/2022 Telephone [facility] [address] [place], [place] [phone] Maddie Kim MD [address] [place], [place] [phone] Durable Medical Equipment Social History Tobacco Use [...] it can fax to her landlord at [phone]. She [facility], [address] [place] [address] If any concerns please contact pt at [phone] documented in this encounter Plan of Treatment Upcoming Encounters Date Type Department Care Team (Late st Contact Info) Description 07/01/2024 11:30 AM EDT Telemedicine [facility] [address] [place] [phone] Maddie Kim MD [address] [place] [phone] documented as of this encounter Visit Diagnoses Not on filedocumented in this encounter Care Teams Interior Designer Relationship Specialty Start Date End Date Maddie Kim MD [address] [place] [id number] PCP - General Family Medicine 07/12/20 Willie Gage 01/17/22 documented as of this encounter
--- OUTSIDE RECORDS SUMMARY | 2024-04-24 07:48 | XMS_ITS | Data Portability ---
Author Organization [employer], [place] in - [employer] Address [address] [place] [address] Care Team Providers Care Immunopathologist Name Role Phone HIM [facility] OTHER [facility] OTHER Assessment Encounter Date Assessment Date Assessment LastModified by Organization Details LastModified Time 02/23/2024 02/23/2024 I provided real -time medical direction via phone for this encounter and was available for additional phone-based assistance as needed. I have reviewed and agree with the Assessment and Plan as documented by the Technical Program Manager. Patient given the opportunity to ask questions. [...] The patient is now voiding normally. Per polisher and buffer on the scene the patient has stable vitals and is afebrile currently after taking Tylenol. Known UTI and would continue to take the antibiotic prescribed as well as Tylenol. Discussed red flags. Medic request urine culture sent to [facility] Allergies: Reviewed Not available 02/23/2024 16:20:42 02/26/2024 02/26/2024 I have reviewed and agree with the assessment and plan as documented by the polisher and buffer. I provided real-time medical direction for this encounter and was immediately available to provide additional phone-based assistance as needed. History as noted in EMR and by polisher and buffer. I would add / emphasize: Patient seen [...] voices understanding. pallfather Not available 02/28/2024 06:38:07 04/18/2024 04/18/2024 I provided real -time medical direction via phone for this encounter and was available for additional phone-based assistance as needed. I have reviewed and agree with the Assessment and Plan as documented by the Technical Program Manager. Patient given the opportunity to ask questions. Our service contacted for an assessment of: Hypertension As per above, patient with fluctuating blood pressures recently a medication adjustments. Is asymptomatic but wanted blood pressure check today. Denies chest pain, shortness of breath, dyspnea on exertion. Is adherent to all medications. Denies headache or neurologic changes. Per polisher and buffer on the scene, vital signs are stable patient is afebrile. Exam unremarkable per polisher and buffer on the scene. ECG noted Impression: Hypertension Plan: Continue with current medication regimen. Follow up with Cardiology. Red flags discussed as to when to seek a higher level of care. Allergies: Reviewed PCP f/u: We discussed the diagnostic uncertainty of home visits and the risk associated with this. In this case, the patient and I felt this to be an acceptable and reasonable amount of risk given the benefit of avoiding an ED visit. We discussed the need to seek care urgently/emergentl y in the setting of any new or worsening serious symptoms, particularly fever chills lightheadedness altered mental status Not available 04/19/2024 08:01:08 Plan of Treatment Reminders Order Date Submit Date Provider Last Modified By Organization Details Last Modified Time Details Appointments None recorded. Lab urinalysis, dipstick 2024 025 SABIHA Man[facility], [address] [place] [address], [place], [address], 16:34:28 culture, urine 2024 025 SABIHA [facility] (Centralized Electronic Ordering - All Locations), Patient Can Go To The Location Of Their Choice, [address] 20:06:10 culture, urine 2024 025 [facility] (Centralized Electronic Ordering - All Locations), Patient Can Go To The Location Of Their Choice, [address] 08:07:59 rapid flu (A+B) 2024 025 [facility], [address] [place] [address], [id number], 08:13:58 rapid SARS CoV 2 Ag, QL IA, respiratory specimen 2024 025 [facility], [address] [place] [address], [id number], 08:13:39 culture, urine 2024 025 [facility] [facility], [address], [place], [address], 04:41:56 Referral None recorded. Procedures None recorded. Surgeries None recorded. Imaging electrocard iogram 2024 025 [facility], [address] [place] [address], [id number], 07:59:45 Medication Orders None recorded. Patient TargetsNo targets recorded. Patient InstructionsNo instructions recorded. Reason for Referral None Reported. Results Created Date Observation Date Name Description Value Unit Range Abnormal Flag Note LastModifiedBy Organization Detail LastModifiedTime 02/22/1902/26/2024 CULTU RE, URINE , ROUTI NE culture, urine, routine SEE NOTE CULTU RE, URINE , ROUTI NE Micro Numbe r: [id number] Test Statu s: Final Speci men Sourc e: Urine Speci men Quali ty: Adequ ate Resul t: No Growt h Not Available [facility] [address], [place], [address], 02/26/2024 04:41:56 02/25/19 25 02/29/2024 URINE CULTU RE,CO MPREH ENSIV E urine culture,comp rehensive Final report Not Available [facility] ([facility]) [address] [facility], [place], [address], 02/29/2024 10:06:00 02/25/19 25 02/29/2024 URINE CULTU RE,CO MPREH ENSIV E result 1 COMMEN T No growt h in 36 - 48 hours . Not Available [facility] ([facility]) [address] [facility], [place], [address], 02/29/2024 10:06:00 03/23/19 25 03/24/2024 URINE CULTU RE, ROUTI NE urine culture, routine Final report Not Available [facility] ([facility]) [address] [facility], [place], [address], 03/24/2024 20:06:10 03/23/19 25 03/24/2024 URINE CULTU RE, ROUTI NE result 1 COMMEN T Cultu re shows less than 10,00 0 colon y formi ng units of bacte carter per angela liter of urine . This colon y count is not gener ally consi dered to be clini rubén signi fican t. Not Available [facility] ([facility]) [address] [facility], [place], [address], 03/24/2024 20:06:10 04/20/1904/19/2024 elect richie soto am No observ ation record ed. [email or web address] [address], [address], 04/19/2024 08:02:01 Result Notes None recorded. Procedures Surgical History None recorded. Imaging Results Imaging Date Name Status LastModified by Organization Details LastModified Time 04/19/2024 electrocardiogram completed [email or web address] [address], [address], 04/19/2024 08:02:01 Procedure Notes None recorded. Medical Equipment None Reported. Allergies Allergen ID Allergen Name Allergen Category Reaction Reaction Severity Criticality Documentation Date Start Date Code Code System Note Provider Name and Address Organization Details Recorded Time 53898 Dilantin medicatio n Not available Not available Not available 02/22/2024 0 RxNorm Not Available [facility] - production 5 14:48:20 09116 sulfameth oxazole medicatio n Not available Not available Not available 02/22/2024 28934 Rx[facility] Not Available [facility] 14:48:20 46884 trimethop rim medicatio n Not available Not available Not available 02/22/2024 66491 RxNorm Not Available [facility] - production 5 14:48:20 67068 Product containin g penicilli n (product) medicatio n Not available Not available Not available 02/22/2024 82365 8001 SNOMED Not Available [facility] - production 5 14:48:20 76926 penicilli n G benzathin e medicatio n Not available Not available Not available 02/22/2024 7982 RxNorm Not Available [facility] - production 5 14:48:20 08082 penicilli n G procaine medicatio n Not available Not available Not available 02/22/2024 7983 RxNorm Not Available [facility] - production 5 14:48:20 Medications Name [...] [degF] 157.48 cm 19 /min 96 /min 533334. 712 g 125 mm[Hg] 82 mm[Hg] Not Available [facility] - production 5 14:39:11 Date Recorded Body temperature Heart rate Respiratory rate Oxygen saturation Oxygen saturation in Arterial blood by Pulse oximetry Systolic blood pressure Diastolic blood pressure Provider Name and Address Organization Details Last Updated DateTime 5 100.9 [degF] 90 /min 16 /min 95 % 95 % 123 mm[Hg] 85 mm[Hg] Not Available [facility] - production 5 11:22:20 Date Recorded Respiratory rate Body temperature Oxygen saturation Oxygen saturation in Arterial blood by Pulse oximetry Heart rate Systolic blood pressure Diastolic blood pressure Provider Name and Address Organization Details Last Updated DateTime 5 16 /min 98.2 [degF] 100 % 100 % 99 /min 124 mm[Hg] 84 mm[Hg] Not Available [facility] - 5 13:03:07 Date Recorded Oxygen saturation Oxygen saturation in Arterial blood by Pulse oximetry Body temperature Heart rate Respiratory rate Systolic blood pressure Diastolic blood pressure Provider Name and Address Organization Details Last Updated DateTime 5 98 % 98 % 98.7 [degF] 94 /min 18 /min 107 mm[Hg] 73 mm[Hg] Not Available [employer] [facility] - 5 18:50:30 Date Recorded Body temperature Oxygen saturation Oxygen saturation in Arterial blood by Pulse oximetry Heart rate Respiratory rate Systolic blood pressure Diastolic blood pressure Provider Name and Address Organization Details Last Updated DateTime 5 98.6 [degF] 98 % 98 % 77 /min 18 /min 132 mm[Hg] 91 mm[Hg] Not Available [employer] - 5 21:02:13 Social History None recorded. Functional Status None recorded. Mental Status None recorded. Family History Nothing Reported. Medical History No medical history recorded. Gynecological HistoryNo gynecological history recorded. Obstetrics History GPAL:G 0 P 0 0 0 0 Past Encounters Encounter ID Performer Location Encounter Start Date Encounter Closed Date Diagnosis/Indication Diagnosis SNOMED-CT Code Diagnosis ICD10 Code Diagnosis Note [id number] KALYN YAO MD Main - [facility] [address] [place] [id number] 02/22/2024 21:29:01 02/23/2024 18:48:12 Urinary symptoms 024666956 R39.9 Evaluation in the field was performed by my polisher and buffer colleague, as noted above, I provided real-time [...] first dose was administer ed by the polisher and buffer. -To alleviate the burning sensation, a prescripti [...] or flank pain or any other concerns. [id number] Fawn Coelho MD Main - [facility] [address] [place] [id number] 02/23/2024 14:34:12 02/23/2024 18:56:04 Urinary symptoms 801314133 R39.9 [id number] Aramis Gallardo MD Main - [facility] [address] [place] [phone] 02/26/2024 11:22:16 02/28/2024 11:56:29 Urinary symptoms 489722868 R39.9 Fever [id number] R50.9 [id number] Jessica Hadley MD Main - [facility] [address] [place] [phone] 03/23/2024 13:03:05 03/25/2024 16:45:46 Urinary symptoms [id number] R39.9 As noted, we were called to see this patient regarding concerns of urinary symptoms. Evaluation in the field was performed by my polisher and buffer colleague, as noted above, I provided real-time [...] not consistent with infection. Impression :Urinary urgency Plan:Tmaia nued Azo, fluids. Would discuss stopping/r eplacing [...] changes to consciousn ess, chest pain, dypsnea. [id number] Alisia Aguirre MD Main - [facility] [address] [place] [id number] 04/01/2024 18:50:28 04/01/2024 19:49:17 Low back pain [id number] M54.50 48 year old female with a [...] of the lower extremitie s. Prior to [facility] visit she took an excedrin which is helping bring the paind own. Exam notable for normal vital signs, neurologic exam is grossly normal. Presentati on consistent with acute on chronic lumbar radiculopa thy, no red flags noted. I have reviewed and agree with the assessment and plan as documented by the polisher and buffer. I provided real-time medical direction for this encounter and was immediatel y available to provide additional phone-base d assistance as needed. We discussed the diagnostic uncertaint y of home visits and associated risks. We discussed the need to seek care urgently/e mergently in the setting of any new or worsening symptoms. [id number] Fawn Coelho MD Main - [address] [phone] 04/18/2024 20:44:44 04/19/2024 19:18:03 Essential hypertension [id number] I10 Health Concerns Section Related Observation LastModified by Organization Detai ls LastModified Time None Recorded Concern Status LastModified by Organization Details LastModified Time None Recorded Advance Directives Directive None Recorded Payers Encounter Date Sequence Insurance Name Policy Number Policy Fernandez Covered Member ID Fernandez Member ID Guarantor Name 02/23/2024 1 [facility] - DOS ON OR AFTER 2022 - DUAL ELIGIBLE - INTERMEDIATE OPTIONS AND ONE CARE (MEDICARE REPLACEMENT/ADV ANTAGE - HMO) Atiya Dotson [id number] Atiyaabisai Dotson 02/26/2024 1 [facility] - DOS ON OR AFTER 2022 - DUAL ELIGIBLE - INTERMEDIATE OPTIONS AND ONE CARE (MEDICARE REPLACEMENT/ADV ANTAGE - HMO) Atiya Dotson [id number] Atiya Dotson 03/23/2024 1 [facility] - DOS ON OR AFTER 2022 - DUAL ELIGIBLE - INTERMEDIATE OPTIONS AND ONE CARE (MEDICARE REPLACEMENT/ADV ANTAGE - HMO) Atiya Dotson [id number] Atiya Dotson 04/01/2024 1 [facility] - DOS ON OR AFTER 2022 - DUAL ELIGIBLE - INTERMEDIATE OPTIONS AND ONE CARE (MEDICARE REPLACEMENT/ADV ANTAGE - HMO) Atiya Dotson [id number] Atiya Dotson 04/18/2024 1 [facility] - DOS ON OR AFTER 2022 - DUAL ELIGIBLE - INTERMEDIATE OPTIONS AND ONE CARE (MEDICARE REPLACEMENT/ADV ANTAGE - HMO) Atiya Dotson [id number] Atiya Dotson Notes Date Note Type Note [...] ...................... ...................... ...................... ...................... ...................... ...................... ......... Technical Program Manager Note From Elias Garrison: Pt chief complaint today of fever/ uti symptoms going on for x 1 week. Pt was seen by [facility] personnel 1 day prior to her [facility] meeting today, urine dip was taken and positive for leukocytes and nitrates. [facility] medic was not able to acquire a [...] blurred vision. Pt has taken Tylenol before [facility] arrival for fever suppression.Nonneural focal exam, afebrile, vitals WNL, lungs are clear bilaterally. Benign abdominal assessment, no lower extremity edema noted. Pt is CAOX4 with GCS of 15. Urine culture acquired, no urine dip due to positivity yesterday.[facility] Fawn Coelho consultedPt informed, to continue taking her antibiotic which was prescribed prior to her [facility] visit today. Pt told to intake fluids and take 1 gram of Tylenol every 8 hours in a 24 hour period as needed for general aches and fever. Pt also educated on red flag S&S and informed to call emergency services if any present. ...................... ...................... ...................... ...................... ...................... ...................... ......... [facility] Consulted: Fawn Coelho ...................... ...................... ...................... ...................... ...................... ...................... ......... Disposition: Fulfilled Fawn Coelho MD [address] [facility],[address], [place], [address], CORRIE [employer] ARIELLE 02/23/2024 16:21:22 02/26/2024 text/html CRC Nurse Triage [...] relief. She would like to be evaluated. Technical Program Manager Organization Information for Sandro [place] Business Legal Name: [facility] Address: [address] [place] [address], [place] [address], Teletypewriter Operator: Jeff Bautista MD [facility] No.: [id number] Technical Program Manager POC Test Results from Sandro Kearney HILDA Rapid COVID antigen (11:21:01) COVID: - Rapid influenza antigen (11:21:02) Flu: - ...................... ...................... ...................... ...................... ...................... ...................... ......... Technical Program Manager Note From Chocolenore Sandro: This 48-year-old female history including but [...] ...................... ...................... ...................... ...................... ...................... ...................... ......... [facility] Consulted: Aramis Gallardo ...................... ...................... ...................... ...................... ...................... ...................... ......... Disposition: Fulfilled Aramis Gallardo MD [address] [place] [address],[address], [place], [address], [employer] 02/28/2024 06:38:26 03/23/2024 text/html CRC Nurse Triage Notes (Bari Salinas - MAJO): Reason For Request: Possible UTI. Urine problems [...] Reviewed at 03/23/2024 Allergies Reviewed at 03/23/2024 - Comments: Munitions Handler Supervisor verified the Pt.'s name//address and phone [...] Tylenol for pain - Wellness visit requested Technical Program Manager Organization Information for Sandro [place] Business Legal Name: [facility] Address: [address] [place] [address], Teletypewriter Operator: Jeff Bautista MD CLIA No.: [id number] Technical Program Manager POC Test Results from Sandro Kearney Urine Dipstick (13:07:26) Urine leukocytes: trace LEXIE Urine nitrites: - NIT Urine urobilinogen: - URO Urine protein: - PRO Urine pH: 5.0 pH Urine blood: - BLO Urine specific gravity: 1.010 SG Urine ketones: - KET Urine bilirubin: - MARCEL Urine glucose: - GLU ...................... ...................... ...................... ...................... ...................... ...................... ......... Technical Program Manager Note From Sandro Kearney: This 48-year-old female [...] ...................... ...................... ...................... ...................... ...................... ...................... ......... [facility] Consulted: Jessica Hadley ...................... ...................... ...................... ...................... ...................... ...................... ......... Disposition: Fulfilled Jessica Hadley MD [address] [place] [address],[address], [place], [address], [employer] 03/23/2024 13:41:47 04/01/2024 text/html CRC Nurse Triage [...] ...................... ...................... ...................... ...................... ...................... ...................... ......... Technical Program Manager Note From Inna Galvan: Sent to [...] ...................... ...................... ...................... ...................... ...................... ...................... ......... [facility] Consulted: Alisia Aguirre ...................... ...................... ...................... ...................... ...................... ...................... ......... Disposition: Fulfilled Alisia Aguirre MD [address] [place] [address],[address] [facility], [place], [address], [employer] 04/01/2024 19:22:50 04/18/2024 text/html CRC Nurse Triage Notes (Tami Ambriz): Reason For Request: Patient has mild chest pain, and Her bp was 141/103. and taking meds. Denies: History of Heart Attack, in the setting of active chest pain Active Chest pain, radiates to neck jaw and or arm Diaphoretic/Sweating Describes as ? c rushing? Sudden onset of nausea/Vomiting and shortness of breath. Shortness of Breath Unable to speak in full sentences without distress Chief Complaints: Headache, High Blood Pressure, Chest Pain PMH: Bipolar Disorder, Gastroesophageal Reflux Disease (GERD), Hypertension PMH Reviewed at 04/18/2024 - 19:11 Allergies Reviewed at 04/18/2024 - :11 Comments: Patient calling in to place a referral, identified via name and , Patient who reports mid to right right sided chest pain that started around 5p. She denies any left sided chest pain, no left jaw, neck, shoulder or arm pain. No shortness of breath, in no acute distress during intake, no acid reflux or nausea/vomiting, denies dizziness or blurry vision, denies any diaphoresis. Patient thinks she is just stressed since her mother is in the hospital. She would like to be evaluated. Technical Program Manager Organization Information for Inna Galvan [employer] Legal Name: [id number]? Address: [address] [place] [address], Teletypewriter Operator: Benjy COLON No.: [id number] Technical Program Manager POC Test Results from Inna Galvan EKG (21:04:35) EKG test performed. Attachments uploaded as part of this test result can be found under Documents section. ...................... ...................... ...................... ...................... ...................... ...................... ......... Technical Program Manager Note From Inna Galvan: Sent to a call for a pt complaining of chest pain. SC8 arrives on scene, pt is alert and oriented, airway is patent. Pt states she has been having problems with fluctuating BP's for a few weeks, along with multiple med changes, and high stress level. Pt complains of headache and substernal chest pain radiating to right side starting at 5pm along with hypertension. Pt denies dizziness, sob, n/v/d, abd pain, fever, or loc. BP:132/91, P:77, RR:18, SpO2:98% RA, T:98.6; Head: unremarkable; Lung sounds: clear bilaterally; Abdomen: soft, non-tender, no distention; Back: unremarkable; Extremities: unremarkable; Skin: pink, warm, dry; 12 lead ECG: uploaded to [employer] Pt states she does not want to go to ED, she only wants to be evaluated in home. C consulted and pt is advised ECG appears normal. Pt is advised to rest and follow up with Cardiology as previously planned. Red flags discussed. Pt has no further questions. ...................... ...................... ...................... ...................... ...................... ...................... ......... [facility] Consulted: Fawn Coelho ...................... ...................... ...................... ...................... ...................... ...................... ......... Disposition: Fulfilled Fawn Coelho MD [address] [place] [address],[address], [place], [address], [employer] 04/19/2024 08:01:24 OBGyn Episode No OBEpisode recorded.
--- OUTSIDE RECORDS SUMMARY | 2024-04-24 07:48 | XMS_ITS | Encounter Summary ---
Author Organization [employer] Address [address] [facility] [address] [place] [address] Care Team Providers Care Spring Forger Name Role Phone Maddie Kim MD Primary Care Provider [phone] Reason for Visit * Reason Comments Med Refill Encounter Details Date Type Department Care Team ([facility] st Contact Info) Description 04/12/2023 Refill [facility] [address] [place] [address] [phone] Isac Gonzalez MD [address] [place], [place] [phone] Chronic bilateral low back pain without sciatica [...] EDT Telemedicine [facility] [address] [place] [phone] Maddie Kim MD [address] [place] [address] documented as of this encounter Visit Diagnoses Diagnosis Chronic bilateral low back pain without sciatica documented in this encounter Additional Health Concerns Assessment Noted Time PHQ-9 Depression Total Score: 0 05/30/19 23 3:26 PM EDT documented as of this encounter Care Teams Spring Forger Relationship Specialty Start Date End Date Maddie Kim MD [address] [place] [phone] PCP - General Family Medicine 07/12/20 Willie Gage 01/17/22 documented as of this encounter
--- OUTSIDE RECORDS SUMMARY | 2024-04-24 07:48 | XMS_ITS | Encounter Summary ---
Author Organization [employer] Address [address] [facility] 7t [place] [address] Care Team Providers Care Global Supply Chain Director Name Role Phone Maddie Kim MD Primary Care Provider [phone] Reason for Visit * Reason Onset Date Comments Med Refill 02/14/2023 Encounter Details Date Type Department Care Team ([facility] Contact Info) Description 02/14/2023 Refill [facility] [address] [place] [address] [phone] Maddie Kim MD [address] [place], [place] [phone] Social History Tobacco Use Types Packs/Day Years [...] Info) Description 07/01/2024 11:30 AM EDT Telemedicine [facility] [address] [place] [phone] Maddie Kim MD [address] [place], [place] [phone] documented as of this encounter Visit Diagnoses Not on filedocumented in this encounter Additional Health Concerns Assessment Noted Time PHQ-9 Depression Total Score: 0 05/30/19 23 3:26 PM EDT documented as of this encounter Care Teams Global Supply Chain Director Relationship Specialty Start Date End Date Maddie Kim MD [address] [place] [address] [phone] PCP - General Family Medicine 07/12/20 Willie Gage 01/17/22 documented as of this encounter
--- OUTSIDE RECORDS SUMMARY | 2024-04-24 07:48 | XMS_ITS | Encounter Summary ---
Author Organization [email or web address] Address [address] [place] [address] 7t [place] [address] Care Team Providers Care Press Loader Name Role Phone Maddie Kim MD Primary Care Provider Reason for Visit * Reason Onset Date Comments Durable Medical Equipment 03/02/2022 Encounter Details Date Type Department Care Team ([facility] st Contact Info) Description 03/02/2022 Telephone [facility] [address] [place] [phone] Shayna Pritchett, MAJO Durable Medical Equipment Social [...] send to L&C Please contact pt at [phone] documented in this encounter Plan of Treatment Upcoming Encounters Date Type Department Care Team (Late st Contact Info) Description 07/01/2024 11:30 AM EDT Telemedicine [facility] [address] [place] [address] Maddie Kim MD 230 [place], [place] [phone] documented as of this encounter Visit Diagnoses Not on filedocumented in this encounter Care Teams Press Loader Relationship Specialty Start Date End Date Maddie Kim MD 230 [place] [address] PCP - General Family Medicine 07/12/20 Willie Gage 01/17/22 documented as of this encounter
--- OUTSIDE RECORDS SUMMARY | 2024-04-24 07:48 | XMS_ITS | Encounter Summary ---
Author Organization [employer] Address [address] [facility] 7t [place] [address] Care Team Providers Care General Doc Name Role Phone Maddie Kim MD Primary Care Provider [phone] Reason for Visit * Reason Onset Date Comments Verbal orders/ Medication question 05/08/2023 Encounter Details Date Type Department Care Team ([facility] Contact Info) Description 05/08/2023 Telephone [facility] 230 [place], [place] [phone] Maddie Kim MD 230 [place], [place] [phone] Verbal orders/ Medication question Social History Tobacco [...] 05/09/2023 9:54 AM EDT TC placed to Glen Gardner at the [facility] and gave VO for prison for 3 times a week. Pt medications were also reconciled and pt reports using Viviscal OTC for hair growth and Calcium + VitD supplements. * Telephone Encounter - Toña Castillo - 05/08/2023 4:20 PM EDT Tc from [facility] requesting some verbal orders reconciliation for skill nursing 3 times a week. Glen Gardner is also requesting a call back to speak about patient's medications. documented in this encounter Plan of Treatment Upcoming Encounters Date Type Department Care Team (Late st Contact Info) Description 07/01/2024 11:30 AM EDT Telemedicine [facility] [address] [place] [phone] Maddie Kim MD [address] [place] [address] documented as of this encounter Visit Diagnoses Not on filedocumented in this encounter Additional Health Concerns Assessment Noted Time PHQ-9 Depression Total Score: 0 05/30/19 23 3:26 PM EDT documented as of this encounter Care Teams General Doc Relationship Specialty Start Date End Date Maddie Kim MD [address] [place] [phone] PCP - General Family Medicine 07/12/20 Willie Gage 01/17/22 documented as of this encounter
--- OUTSIDE RECORDS SUMMARY | 2024-04-24 07:48 | XMS_ITS | Encounter Summary ---
Author Organization [employer] Address [address] [place] [address] 7t [place] [address] Care Team Providers Care Grand Jury Deputy Sheriff Name Role Phone Maddie Kim MD Primary Care Provider [phone] Encounter Details Date Type Department Care Team ([facility] Contact Info) Description 06/26/2022 Abstract [facility] [address] [place] [phone] Maddie Kim MD [address] [place] [address] [phone] Social History Tobacco Use Types Packs/Day Years [...] Upcoming Encounters Date Type Department Care Team ([facility] Contact Info) Description 07/01/2024 11:30 AM EDT Telemedicine [facility] 230 [place] [address] Maddie Kim MD 230 [place] [address] documented as of this encounter Visit Diagnoses Not on filedocumented in this encounter Additional Health Concerns Assessment Noted Time PHQ-9 Depression Total Score: 0 05/30/19 23 3:26 PM EDT documented as of this encounter Care Teams Grand Jury Deputy Sheriff Relationship Specialty Start Date End Date Maddie Kim MD 230 [place] [address] PCP - General Family Medicine 07/12/20 Willie Gage 01/17/22 documented as of this encounter
--- OUTSIDE RECORDS SUMMARY | 2024-04-24 07:48 | XMS_ITS | Encounter Summary ---
Author Organization [employer] Address [address] [place] [address] 7t [place] [address] Care Team Providers Care Ordnance Technician Name Role Phone Maddie Kim MD Primary Care Provider [phone] Reason for Visit * Reason Onset Date Comments No Show 04/02/2024 Encounter Details Date Type Department Care Team ([facility] Contact Info) Description 04/02/2024 Telephone [facility] 230 [place], [place] [phone] Maddie Kim MD [address] [place], [place] [phone] No Show Social History Tobacco Use Types [...] AM EDT Telemedicine [facility] [address] [place] [address] Maddie Kim MD [address] [place] [address] documented as of this encounter Visit Diagnoses Not on filedocumented in this encounter Additional Health Concerns Assessment Noted Time PHQ-9 Depression Total Score: 3 06/15/19 24 11:48 AM EDT documented as of this encounter Care Teams Ordnance Technician Relationship Specialty Start Date End Date Maddie Kim MD 230 [place] [address] PCP - General Family Medicine 07/12/20 Willie Gage 01/17/22 documented as of this encounter
--- OUTSIDE RECORDS SUMMARY | 2024-04-24 07:49 | XMS_ITS | Encounter Summary ---
Author Organization [employer] Address [address] [facility] 7t [place] [address] Care Team Providers Care First Aid Trainer Name Role Phone Maddie Kim MD Primary Care Provider [phone] Reason for Visit * Reason Onset Date Comments Med Refill 03/19/2023 Encounter Details Date Type Department Care Team ([facility] Contact Info) Description 03/19/2023 Telephone [facility] 230 [place] [address] Maddie Kim MD 230 [place], [place] [phone] Med Refill Social History Tobacco Use Types [...] Pt agrees. MD Maddie Saravia RN; [facility] Team Nurses Caller: Unspecified (2 weeks ago) I wrote her a work excuse extending her time for remote work until 04/05/23 * Telephone Encounter - Maddie Crawford RN - 04/02/2023 3:02 PM EST Images from the original note were not included. Triage call regarding Pt portal message below. Pt continues to have symptoms of Covid. Pt was seen in [facility] 03/29/[address] Gonzalez and dx [...] better sooner [facility] Advised Pt will send this request [...] - Diagnosed With COVID-19 by Doctor (or FIELD MARKETER/PA) and Mild Symptoms * General Care Advice for COVID-19 Symptoms * Humidifier * Coughing Spells * Pain and Fever Medicines * Mild Stomach and Intestinal Symptoms During COVID-19 Illness Atiya Johnson [facility] Clinial Support (supporting Lorrie Alaniz [...] Description 07/01/2024 11:30 AM EDT Telemedicine [facility] 230 [place] [address] Maddie Kim MD 230 [place] [address] documented as of this encounter Visit Diagnoses Not on filedocumented in this encounter Additional Health Concerns Assessment Noted Time PHQ-9 Depression Total Score: 0 05/30/19 23 3:26 PM EDT documented as of this encounter Care Teams First Aid Trainer Relationship Specialty Start Date End Date Maddie Kim MD 230 [place] [address] PCP - General Family Medicine 07/12/20 Willie Gage 01/17/22 documented as of this encounter
--- OUTSIDE RECORDS SUMMARY | 2024-04-24 07:49 | XMS_ITS | Encounter Summary ---
Author Organization [employer] Address [address] [facility] 7t [place] [address] Care Team Providers Care Sales Executive Insurance Name Role Phone Maddie Kim MD Primary Care Provider [phone] Encounter Details Date Type Department Care Team ([facility] st Contact Info) Description 03/19/2023 Orders Only [facility] 230 [place], [place] [phone] Maddie Kim MD 230 [place], [place] [phone] Herniated lumbar intervertebral disc (Primary Dx) Social [...] Info) Description 07/01/2024 11:30 AM EDT Telemedicine [facility] 230 [place] [address] Maddie Kim MD 230 [place] [address] documented as of this encounter Visit Diagnoses Diagnosis Herniated lumbar intervertebral disc- Primary Displacement of lumbar intervertebral disc without myelopathy documented in this encounter Additional Health Concerns Assessment Noted Time PHQ-9 Depression Total Score: 0 05/30/19 23 3:26 PM EDT documented as of this encounter Care Teams Sales Executive Insurance Relationship Specialty Start Date End Date Maddie Kim MD 230 [place] [address] PCP - General Family Medicine 07/12/20 Willie Gage 01/17/22 documented as of this encounter
--- OUTSIDE RECORDS SUMMARY | 2024-04-24 07:49 | XMS_ITS | Encounter Summary ---
Author Organization [employer] Address [address] [facility] 7t [place] [address] Care Team Providers Care Hospice Office Coordinator Name Role Phone Maddie Kim MD Primary Care Provider [phone] Reason for Visit * Reason Onset Date Comments Nurse Triage 05/14/2023 Encounter Details Date Type Department Care Team ([facility] st Contact Info) Description 05/14/2023 Telephone [facility] 230 [place], [place] [phone] Maddie Kim MD 230 [place], [place] [phone] Nurse Triage Social History Tobacco Use Types [...] accepted this outcome Any questions to Destiny [phone] documented in this encounter Plan of Treatment Upcoming Encounters Date Type Department Care Team (Late st Contact Info) Description 07/01/2024 11:30 AM EDT Telemedicine [facility] [address] [place] [address] Maddie Kim MD [address] [place] [phone] documented as of this encounter Visit Diagnoses Not on filedocumented in this encounter Additional Health Concerns Assessment Noted Time PHQ-9 Depression Total Score: 0 05/30/19 23 3:26 PM EDT documented as of this encounter Care Teams Hospice Office Coordinator Relationship Specialty Start Date End Date Maddie Kim MD [address] [place] [phone] PCP - General Family Medicine 07/12/20 Willie Gage 01/17/22 documented as of this encounter
--- OUTSIDE RECORDS SUMMARY | 2024-04-24 07:49 | XMS_ITS | Encounter Summary ---
Author Organization [employer] Address [address] [place] [address] 7t [place] [address] Care Team Providers Care Drainage Engineer Name Role Phone Maddie Kim MD Primary Care Provider [phone] Reason for Visit * Reason Onset Date Comments CRITICAL RESULT CALL 04/10/2024 Encounter Details Date Type Department Care Team ([facility] Contact Info) Description 04/10/2024 Telephone [facility] 230 [place], [place] [phone] Maddie Kim MD 230 [place], [place] [phone] CRITICAL RESULT CALL Social History Tobacco Use [...] 11:04 AM EST TC placed to patient [phone] in regards to below message. Patient reports she has NOT heard from manager of corporate as of yet. Per referral notes, referral [...] 04/10/24 at 9:44 AM Name of Caller/Facility:Darlene KASEPR [facility] Partial Hospitalization [facility] Callback number: [phone] Reason for Call: Calling to inform that [...] [facility] [address] [place] [address] [phone] Maddie Kim MD [address] [place] [address] [phone] documented as of this encounter Visit Diagnoses Not on filedocumented in this encounter Additional Health Concerns Assessment Noted Time PHQ-9 Depression Total Score: 3 06/15/19 24 11:48 AM EDT documented as of this encounter Care Teams Drainage Engineer Relationship Specialty Start Date End Date Maddie Kim MD [address] [place] [address] [phone] PCP - General Family Medicine 07/12/20 Willie Gage 01/17/22 documented as of this encounter
--- OUTSIDE RECORDS SUMMARY | 2024-04-24 07:49 | XMS_ITS | Encounter Summary ---
Author Organization [employer] Address [address] [facility] 7t [place] [address] Care Team Providers Care Burning Supervisor Name Role Phone Maddie Kim MD Primary Care Provider [phone] Reason for Visit * Reason Comments Med Refill Encounter Details Date Type Department Care Team ([facility] st Contact Info) Description 04/05/2023 Refill [facility] [address] [place] [address] [phone] Isac Gonzalez MD [address] [place] [address] [phone] Chronic bilateral low back pain without sciatica [...] - 04/06/2023 12:46 PM EST TC to [facility] pharmacy, T3 RX written 03/29/23 for [...] Telemedicine [facility] 230 [place] [address] Maddie Kim MD 230 [place] [address] documented as of this encounter Visit Diagnoses Diagnosis Chronic bilateral low back pain without sciatica documented in this encounter Additional Health Concerns Assessment Noted Time PHQ-9 Depression Total Score: 0 05/30/19 23 3:26 PM EDT documented as of this encounter Care Teams Burning Supervisor Relationship Specialty Start Date End Date Maddie Kim MD 230 [place] [address] PCP - General Family Medicine 07/12/20 Willie Gage 01/17/22 documented as of this encounter
--- OUTSIDE RECORDS SUMMARY | 2024-04-24 07:49 | XMS_ITS | Continuity of Care Document ---
Author Organization [facility] [place] [facility] [employer] Address [address] [place] [phone] Care Team Providers Care Game Author Name Role Phone HIM [facility] OTHER [facility] OTHER Assessment Encounter Date Assessment Date Assessment LastModified by Organization Details LastModified Time 04/18/2024 04/18/2024 I provided real -time medical direction via phone for this encounter and was available for additional phone-based assistance as needed. I have reviewed and agree with the Assessment and Plan as documented by the Automotive Brake Adjuster. Patient given the opportunity to ask questions. Our service contacted for an assessment of: Hypertension As per above, patient with fluctuating blood pressures recently a medication adjustments. Is asymptomatic but wanted blood pressure check today. Denies chest pain, shortness of breath, dyspnea on exertion. Is adherent to all medications. Denies headache or neurologic changes. Per social media editor on the scene, vital signs are stable patient is afebrile. Exam unremarkable per social media editor on the scene. ECG noted Impression: Hypertension [...] Modified Time Details Appointments None recorded. Lab None recorded. Referral None recorded. Procedures None recorded. Surgeries None recorded. Imaging electrocard iogram 2024 0[address] - [address], [phone], 07:59:45 Medication Orders None recorded. Patient TargetsNo targets recorded. Patient InstructionsNo instructions recorded. Reason for Referral None Reported. Results Created Date Observation Date Name Description Value Unit Range Abnormal Flag Note LastModifiedBy Organization Detail LastModifiedTime 04/20/19 25 04/19/2024 elect richie ryangr am No observ ation record ed. [email or web address] [address], [phone], 04/19/2024 08:02:01 Result Notes None recorded. Procedures Surgical History None recorded. Imaging Results Imaging Date Name Status LastModified by Organization Details LastModified Time 04/19/2024 [facility]cardi[facility] [address], [phone], 04/19/2024 08:02:01 Procedure Notes None recorded. Medical Equipment None Reported. Allergies Allergen ID Allergen Name Allergen Category Reaction Reaction Severity Criticality Documentation Date Start Date Code Code System Note Provider Name and Address Organization Details Recorded Time 52129 Dilantin medicatio n Not available Not available Not available 02/22/2024 01063 0 RxNorm Not Available [facility] - production 14:48:20 18481 sulfameth oxazole medicatio n Not available Not available Not available 02/22/2024 10329 [facility] 93277 trimethop rim medicatio n Not available Not available Not available 02/22/2024 31757 Rx[facility]:48:20 70463 Product containin g penicilli n (product) medicatio n Not available Not available Not available 02/22/2024 15300 8001 SNOMED [facility]:48:20 44078 penicilli n G benzathin e medicatio n Not available Not available Not available 02/22/2024 7982 RxNorm Not Available [facility] 14:48:20 65676 penicilli n G procaine medicatio n Not [...] Not Available Not Available omeprazole 20 mg capsule,kassandar yed release active Not Available Not Available [...] t Available Vitals Date Recorded Body temperature Oxygen saturation Oxygen saturation in Arterial blood by Pulse oximetry Heart rate Respiratory rate Systolic blood pressure Diastolic blood pressure Provider Name and Address Organization Details Last Updated DateTime 5 98.6 [degF] 98 % 98 % 77 /min 18 /min 132 mm[Hg] 91 mm[Hg] Not Available [facility] - production 5 21:02:13 Social History None recorded. Functional Status None recorded. Mental Status None recorded. Family History Nothing Reported. Medical History No medical history recorded. Gynecological HistoryNo gynecological history recorded. Obstetrics History GPAL:G 0 P 0 0 0 0 Past Encounters Encounter ID Performer Location Encounter Start Date Encounter Closed Date Diagnosis/Indication Diagnosis SNOMED-CT Code Diagnosis ICD10 Code Diagnosis Note [id number] Jessica Hadley MD Main - [facility] [address] [place] [phone] 03/23/2024 13:03:05 03/25/2024 16:45:46 Urinary symptoms 800167991 R39.9 As noted, we were called to see this patient regarding concerns of urinary symptoms. Evaluation in the field was performed by my social media editor colleague, as noted above, I provided real-time [...] changes to consciousn ess, chest pain, dypsnea. [id number] Alisia Aguirre MD Main - [address] [phone] 04/01/2024 18:50:28 04/01/2024 19:49:17 Low back pain [id number] M54.50 48 year old female with a [...] Prior to [facility]'s visit she took an excedrin which is helping bring the paind own. Exam notable for normal vital signs, neurologic exam is grossly normal. Presentati on consistent with acute on chronic lumbar radiculopa thy, no red flags noted. I have reviewed and agree with the assessment and plan as documented by the social media editor. I provided real-time medical direction for this encounter and was immediatel y available to provide additional phone-base d assistance as needed. We discussed the diagnostic uncertaint y of home visits and associated risks. We discussed the need to seek care urgently/e mergently in the setting of any new or worsening symptoms. [id number] Fawn Coelho MD Main - [address] [phone] 04/18/2024 20:44:44 04/19/2024 19:18:03 Essential hypertension [id number] I10 Health Concerns Section Related Observation LastModified by Organization Detai ls LastModified Time None Recorded Concern Status LastModified by Organization Details LastModified Time None Recorded Payers Encounter Date Sequence Insurance Name Policy Number Policy Fernandez Covered Member ID Fernandez Member ID Guarantor Name 04/18/2024 1 [facility] - DOS ON OR AFTER 2022 - DUAL ELIGIBLE - LONG TERM OPTIONS AND ONE CARE (MEDICARE REPLACEMENT/ADV ANTAGE - HMO) Atiya Dotson [id number] Atiya Dotson Notes Date Note Type Note Provider Name and Address Organization Details Recorded Time 04/18/2024 text/html CRC Nurse Triage Notes (Tami [...] Reflux Disease (GERD), Hypertension PMH Reviewed at 04/18/2024:11 Allergies Reviewed at 04/18/2024:11 Comments: Patient calling in to place a [...] hospital. She would like to be evaluated. Automotive Brake Adjuster Organization Information for [facility] Business Legal Name: [employer]? Address: [address] [place] [address], Judge: Benjy Haile MD CLSUSAN No.: [id number] Automotive Brake Adjuster POC Test Results from [facility] EKG (21:04:35) EKG test performed. Attachments uploaded as part of this test result can be found under Documents section. ...................... ...................... ...................... ...................... ...................... ...................... ......... Automotive Brake Adjuster Note From Cole [facility]: Sent to a call for a pt [...] warm, dry; 12 lead ECG: uploaded to [employer]; Pt states she does not want to go to ED, she only wants to be evaluated in home. [facility] consulted and pt is advised ECG appears normal. Pt is advised to rest and follow up with Cardiology as previously planned. Red flags discussed. Pt has no further questions. ...................... ...................... ...................... ...................... ...................... ...................... ......... [facility] Consulted: Fawn Coelho ...................... ...................... ...................... ...................... ...................... ...................... ......... Disposition: Fulfilled Fawn Coelho MD [address] [place] [address],[address] [facility], [place], [address], CORRIE - [email or web address] BALLARD 04/19/2024 08:01:24 OBGyn Episode No OBEpisode recorded.
--- OUTSIDE RECORDS SUMMARY | 2024-04-24 07:49 | XMS_ITS | Encounter Summary ---
Author Organization [employer] Address [address] [facility] 7t [place] [address] Care Team Providers Care Marine Engineering Professor Name Role Phone Maddie Kim MD Primary Care Provider [phone] Reason for Visit * Reason Comments Med Refill Encounter Details Date Type Department Care Team ([facility] st Contact Info) Description 04/09/[address] [facility] [address] [place], [place] [phone] Maddie Kim MD [address] [place], [place] [phone] Social History Tobacco Use Types Packs/Day Years [...] Description 07/01/2024 11:[address] [facility] [address] [place] [phone] Maddie Kim MD [address] [place] [phone] documented as of this encounter Visit Diagnoses Not on filedocumented in this encounter Additional Health Concerns Assessment Noted Time PHQ-9 Depression Total Score: 3 06/15/19 24 11:48 AM EDT documented as of this encounter Care Teams Marine Engineering Professor Relationship Specialty Start Date End Date Maddie Kim MD [address] [place] [phone] PCP - General Family Medicine 07/12/20 Willie Gage 01/17/22 documented as of this encounter
--- OUTSIDE RECORDS SUMMARY | 2024-04-24 07:49 | XMS_ITS | Encounter Summary ---
Author Organization [employer] Address 75 [facility] 7t [place] [address] Care Team Providers Care Cutting Machine Operator Name Role Phone Maddie Kim MD Primary Care Provider [phone] Reason for Visit * Reason Comments Med Refill Encounter Details Date Type Department Care Team ([facility] st Contact Info) Description 03/18/2023 Refill [facility] [address] [place] [address] [phone] Maddie Kim MD [address] [place] [address] [phone] Social History Tobacco Use Types Packs/Day Years [...] EDT Telemedicine [facility] [address] [place] [address] Maddie Kim MD 230 [place] [address] documented as of this encounter Visit Diagnoses Not on filedocumented in this encounter Additional Health Concerns Assessment Noted Time PHQ-9 Depression Total Score: 0 05/30/19 23 3:26 PM EDT documented as of this encounter Care Teams Cutting Machine Operator Relationship Specialty Start Date End Date Maddie Kim MD [address] [place] [phone] PCP - General Family Medicine 07/12/20 Willie Gage 01/17/22 documented as of this encounter
--- OUTSIDE RECORDS SUMMARY | 2024-04-24 07:49 | XMS_ITS | Clinical Summary ---
Author Organization Unknown Care Team Providers Care Cut Off Saw Operator Name Role Phone MARLON AHUMADA, JEAN-PIERRE Unavailable Unavailable ENRIQUE WEINSTEINW, WINNIE Unavailable Unavailable KATINA RN, ANASTACIA Unavailable Unavailable SMILEY RN, JENNI Unavailable Unavailable JAVIER RN, GABBY Unavailable Unavaila ble Payers Payer Name Policy Type Policy Number Effective Date Expira tion Date [facility] [id number] [place]ID [place] [id number] MEDICARE - [facility] [place] - PD [id number] Problems Condition Name Condition Details Condition Category [...] 2020-02 00:00: 00 03-07 00:00 :00 No [id number] 10 mg 3 TIMES DAILY 10 mg 3 TIMES DAILY (route: oral) Med Classific ation: Locomotor System buprenorphi ne 4 mg-naloxone 1 mg sublingual film 2020-02 00:00: 00 04-05 00:00 :00 No [id number] Per instruc tions NEEDED Per instructio ns NEEDED (route: sublingual ) Med Classific ation: Chemical Dependenc y, Agents to Treat divalproex 250 mg tablet,kassandra yed release 2020-02 00:00: 00 04-05 23:59 :00 No [id number] 250 mg DAILY 250 mg DAILY (route: oral) Med Classific ation: Central Nervous System Agents divalproex ER 500 mg tablet,exte nded release 24 hr 2020-02 00:00: 00 04-05 00:00 :00 No [id number] 500 mg 2 TIMES DAILY 500 mg 2 TIMES DAILY (route: oral) Med Classific ation: Central Nervous System Agents ferrous sulfate 325 mg (65 mg iron) tablet 2020-02 00:00: 00 04-05 00:00 :00 No [id number] 1 tablet DAILY 1 tablet DAILY (route: oral) Med Classific ation: Electroly te Balance-N utritiona l Products Invega Sustenna 156 mg/mL intramuscul ar syringe 2020-02 00:00: 00 05-11 23:59 :00 No [id number] 156 mg MONTHLY 156 mg MONTHLY (route: intramuscu lar) Med Classific ation: Central Nervous System Agents levothyroxi ne 25 mcg tablet 2020-02 00:00: 00 03-05 23:59 :00 No [id number] 25 mcg DAILY 25 mcg DAILY (route: oral) Med Classific ation: Endocrine lisinopril 5 mg tablet 2020-02 00:00: 00 11-21 23:59 :00 No [id number] 5 mg DAILY 5 mg DAILY (route: oral) Med Classific ation: Cardiovas cular Therapy Agents nicotine (polacrilex ) 4 mg gum 2020-02 00:00: 00 09-12 23:59 :00 No [id number] 4 gum NEEDED 4 gum NEEDED (route: buccal) Med Classific ation: Chemical Dependenc y, Agents to Treat nicotine 21mg/24hr-1 4mg/24hr-7m g/24hr daily transderm patches,seq uentl 2020-02 00:00: 00 09-12 23:59 :00 No [id number] 21 patch NEEDED 21 patch NEEDED (route: transderma l) Med Classific ation: Chemical Dependenc y, Agents to Treat nystatin 500,000 unit tablet 2020-02 00:00: 00 04-05 00:00 :00 No [id number] In unit 4 TIMES DAILY [id number] In unit 4 TIMES DAILY (route: oral) Med Classific ation: Anti-Infe ctive Agents omeprazole 20 mg tablet,kassanrda yed release 2020-02 00:00: 00 Yes [id number] 20 mg DAILY 20 mg DAILY (route: oral) Med Classific ation: Gastroint estinal Therapy Agents prazosin 5 mg capsule 2020-02 00:00: 00 02-14 23:59 :00 No [id number] 5 capsule BEDTIME 5 capsule BEDTIME (route: oral) Med Classific ation: Cardiovas cular Therapy Agents trazodone 50 mg tablet 2020-02 00:00: 00 01-17 23:59 :00 No [id number] 50 mg NEEDED 50 mg NEEDED (route: oral) Med Classific ation: Central Nervous System Agents albuterol sulfate HFA 90 mcg/actuati on aerosol inhaler 04-05 00:00: 00 Yes [id number] 2 puff NEEDED 2 puff NEEDED (route: inhalation ) Med Classific ation: Respirato ry Therapy Agents Aspercreme with Aloe 10 % topical 04-05 00:00: 00 09-12 23:59 :00 No [id number] Per instruc tions NEEDED Per instructio ns NEEDED (route: topical) Med Classific ation: Dermatolo gical cyclobenzap rine 5 mg tablet 04-05 00:00: 00 01-17 23:59 :00 No [id number] 5 mg NEEDED 5 mg NEEDED (route: oral) Med Classific ation: Locomotor System Depakote 500 mg tablet,kassandra yed release 04-05 00:00: 00 05-06 23:59 :00 No [id number] 1000 mg 2 TIMES DAILY 1000 mg 2 TIMES DAILY (route: oral) Med Classific ation: Central Nervous System Agents diphenhydra mine 25 mg capsule 04-05 00:00: 00 06-01 23:59 :00 No [id number] 50 mg NEEDED 50 mg NEEDED (route: oral) Med Classific ation: Respirato ry Therapy Agents hydroxyzine HCl 50 mg tablet 2-15 00:00: 00 06-01 23:59 :00 No [id number] 50 mg 3 TIMES DAILY 50 mg 3 TIMES DAILY (route: oral) Med Classific ation: Central Nervous System Agents naltrexone 50 mg tablet 2-15 00:00: 00 06-01 23:59 :00 No [id number] 50 mg DAILY 50 mg DAILY (route: oral) Med Classific ation: Antidotes and other Reversal Agents Narcan 4 mg/actuatio n nasal spray 2-15 00:00: 00 06-01 23:59 :00 No [id number] Per instruc tions NEEDED Per instructio ns NEEDED (route: nasal) Med Classific ation: Antidotes and other Reversal Agents pyridoxine (vitamin B6) 25 mg tablet 2-15 00:00: 00 06-01 23:59 :00 No [id number] 25 mg DAILY 25 mg DAILY (route: oral) Med Classific ation: Electroly te Balance-N utritiona l Products Invega Sustenna 234 mg/1.5 mL intramuscul ar syringe 3-24 00:00: 00 Yes [id number] Per instruc tions MONTHLY Per instructio ns MONTHLY (route: intramuscu lar) Med Classific ation: Central Nervous System Agents Invega Sustenna 234 mg/1.5 mL intramuscul ar syringe 8-14 00:00: 00 11-30 23:59 :00 No [id number] 234 mg MONTHLY 234 mg MONTHLY (route: intramuscu lar) Med Classific ation: Central Nervous System Agents Celebrex 200 mg capsule 2021-02 0-26 00:00: 00 03-20 23:59 :00 No [id number] 200 mg 2 TIMES DAILY 200 mg 2 TIMES DAILY (route: oral) Alternate Route: NONE. Med Classific ation: Analgesic , Anti-infl ammatory or Antipyret ic Celebrex 200 mg capsule 1-30 00:00: 00 01-10 23:59 :00 No [id number] 200 mg DAILY 200 mg DAILY (route: oral) Alternate Route: NONE. Med Classific ation: Analgesic , Anti-infl ammatory or Antipyret ic docusate sodium 100 mg capsule 30 00:00: 00 01-29 23:59 :00 No [id number] 1 capsule 2 TIMES DAILY 1 capsule 2 TIMES DAILY (route: oral) Alternate Route: NONE. Med Classific ation: Gastroint estinal Therapy Agents Eliquis 2.5 mg tablet 30 00:00: 00 09-12 23:59 :00 No [id number] 1 tablet 2 TIMES DAILY 1 tablet 2 TIMES DAILY (route: oral) Med Classific ation: Hematolog ical Agents oxycodone 5 mg tablet 03-20 00:00: 00 04-18 23:59 :00 No [id number] Per instruc tions DIRECTED Per instructio ns DIRECTED (route: oral) Alternate Route: NONE. Med Classific ation: Analgesic , Anti-infl ammatory or Antipyret ic tramadol 50 mg tablet 03-20 00:00: 00 04-18 23:59 :00 No [id number] Per instruc tions DIRECTED Per instructio ns DIRECTED (route: oral) Med Classific ation: Analgesic , Anti-infl ammatory or Antipyret ic gabapentin 300 mg capsule 3-29 00:00: 00 01-10 23:59 :00 No [id number] 1 capsule 3 TIMES DAILY 1 capsule 3 TIMES DAILY (route: oral) Med Classific ation: Central Nervous System Agents cyclobenzap rine 5 mg tablet 7-27 00:00: 00 01-10 23:59 :00 No [id number] 1 tablet 3 TIMES DAILY 1 tablet 3 TIMES DAILY (route: oral) Med Classific ation: Locomotor System baclofen 10 mg tablet 2022-02 1-24 00:00: 00 03-30 23:59 :00 No [id number] 1 tablet DIRECTED 1 tablet DIRECTED (route: oral) Med Classific ation: Locomotor System docusate sodium 100 mg capsule 2022-02 00:00: 00 Yes [id number] 1 capsule NEEDED 1 capsule NEEDED (route: oral) Med Classific ation: Gastroint estinal Therapy Agents acetaminoph en 300 mg-codeine 30 mg tablet 2-09 00:00: 00 05-15 23:59 :00 No [id number] 1 tablet 3 TIMES DAILY 1 tablet 3 TIMES DAILY (route: oral) Med Classific ation: Analgesic , Anti-infl ammatory or Antipyret ic Paxlovid 300 mg (150 mg x 2)-100 mg tablets in a dose pack 03-30 00:00: 00 04-03 23:59 :00 No [id number] 3 tablet 2 TIMES DAILY 3 tablet 2 TIMES DAILY (route: oral) Med Classific ation: Anti-Infe ctive Agents tizanidine 4 mg tablet 03-30 00:00: 00 01-03 23:59 :00 No [id number] 1 tablet 3 TIMES DAILY 1 tablet 3 TIMES DAILY (route: oral) Med Classific ation: Locomotor System Depakote 500 mg tablet,kassandra yed release 3-23 00:00: 00 03-31 23:59 :00 No [id number] 1000 mg 2 TIMES DAILY 1000 mg 2 TIMES DAILY (route: oral) Med Classific ation: Central Nervous System Agents multivitami n tablet -15 00:00: 00 04-21 23:59 :00 No [id number] 1 tablet DIRECTED 1 tablet DIRECTED (route: oral) Med Classific ation: Electroly te Balance-N utritiona l Products gabapentin 300 mg capsule 07-10 00:00: 00 Yes [id number] 2 capsule 3 TIMES DAILY 2 capsule 3 TIMES DAILY (route: oral) Med Classific ation: Central Nervous System Agents paliperidon e ER 1.5 mg tablet,exte nded release 24 hr 07-10 00:00: 00 11-22 23:59 :00 No [id number] 1 tablet DAILY 1 tablet DAILY (route: [...] AWARENESS FOR SAFETY AND WILL NOTIFY CLINICAL COSTUME TECHNICIAN AND PHYSICIAN/PROVIDER WITH ANY CHANGE IN CONDITION. [code = SKILLED NURSE WILL MAINTAIN SITUATIONAL AWARENESS FOR SAFETY AND WILL NOTIFY CLINICAL COSTUME TECHNICIAN AND PHYSICIAN/PROVIDER WITH ANY CHANGE IN CONDITION.] [...] A REFILL FOR GABAPENTIN. SN ATTEMPTED TO FOUNDRY EQUIPMENT MECHANIC THE MEDICATION AT THE PHARMACY BUT PRESCRIPTION [...] Goals Met 2022-01-17 00:00:00 2024-05-05 00:00:00 [facility] [id number] 53.13
--- OUTSIDE RECORDS SUMMARY | 2024-04-24 07:49 | XMS_ITS | Encounter Summary ---
Author Organization [employer] Address [address] [facility] 7t [place] [address] Care Team Providers Care Oyster Harvester Name Role Phone Maddie Kim MD Primary Care Provider [phone] Encounter Details Date Type Department Care Team ([facility] st Contact Info) Description 03/24/2024 Telephone [facility] [address] [place], [place] [phone] Maddie Kim MD [address] [place], [place] [phone] Social History Tobacco Use Types Packs/Day Years [...] reviewed meditech, patient is currently admitted to [facility] d/t hypokalemia, hyperkalemia and hypotension. Patient admitted for electrolyte correction. Patient to f/u upon discharge for an HDF appointment. * Telephone Encounter - Sheila Rene RN - 03/25/2024 4:44 PM EST Noted. RN will leave scheduled appointment incase patient is discharged at PCP's request. * Telephone Encounter - Sheila Rene RN - 03/25/2024 3:54 PM EST Noted. * Telephone Encounter - Shelia Rene RN - 03/24/2024 3:29 PM EST TC placed to patient [phone] to inform patient, PCP would like patient to repeat BW tomorrow as per provider at [facility]. If sodium returns low again then hydrochlorothiazide [...] Name of Caller/Facility:Lauren Gage RN Callback number: [phone] Reason for Call: NA [phone] Lauren RN [...] team nurses for follow up. High Priority mAPPn Chat Secure Message also sent to Red Team Nurses. documented in this encounter Plan of Treatment Upcoming Encounters Date Type Department Care Team (Late st Contact Info) Description 07/01/2024 11:30 AM EDT Telemedicine [facility] [address] [place] [address] Maddie Kim MD [address] [place] [address] documented as of this encounter Visit Diagnoses Not on filedocumented in this encounter Additional Health Concerns Assessment Noted Time PHQ-9 Depression Total Score: 3 06/15/19 24 11:48 AM EDT documented as of this encounter Care Teams Oyster Harvester Relationship Specialty Start Date End Date Maddie Kim MD [address] [place] [address] PCP - General Family Medicine 07/12/20 Willie Gage 01/17/22 documented as of this encounter
--- OUTSIDE RECORDS SUMMARY | 2024-04-24 07:49 | XMS_ITS | Encounter Summary ---
Author Organization [employer] Address [address] [facility] 7t [place] [address] Care Team Providers Care Manager Client Name Role Phone Maddie Kim MD Primary Care Provider [phone] Reason for Visit * Reason Onset Date Comments Med Refill 04/04/2023 Encounter Details Date Type Department Care Team ([facility] st Contact Info) Description 04/04/2023 Refill [facility] [address] [place] [address] [phone] Isac Gonzalez MD [address] [place], [place] [phone] Chronic bilateral low back pain without sciatica [...] Info) Description 07/01/2024 11:30 AM EDT Telemedicine [facility] 230 [place] [address] Maddie Kim MD [address] [place] [address] documented as of this encounter Visit Diagnoses Diagnosis Chronic bilateral low back pain without sciatica documented in this encounter Additional Health Concerns Assessment Noted Time PHQ-9 Depression Total Score: 0 05/30/19 23 3:26 PM EDT documented as of this encounter Care Teams Manager Client Relationship Specialty Start Date End Date Maddie Kim MD [address] [place] [address] PCP - General Family Medicine 07/12/20 Willie Gage 01/17/22 documented as of this encounter
--- OUTSIDE RECORDS SUMMARY | 2024-04-24 07:49 | XMS_ITS | Encounter Summary ---
Author Organization [employer] Address [address] [facility] 7t [place] [address] Care Team Providers Care Pasteurizer Helper Name Role Phone Maddie Kim MD Primary Care Provider [phone] Encounter Details Date Type Department Care Team ([facility] st Contact Info) Description 04/14/2024 Orders Only [facility] 230 [place], [place] [phone] Maddie Kim MD [address] [place], [place] [phone] Social History Tobacco Use Types Packs/Day Years [...] 11:30 AM EDT Telemedicine [facility] 230 [place], [place] [phone] Maddie Kim MD [address] [place], [place] [phone] documented as of this encounter Procedures Procedure [...] Serum (04/14/2024 12:47 PM EST) Pathologist [facility] IMMUNOGLOBULIN G 1545 600 - 1640 mg/dL [facility] IMMUNOGLOBULIN A 197 47 - 310 mg/dL [facility] Immunoglobulin M 46(A) 50 - 300 mg/dL [facility] Comment:THIS TEST WAS PERFOR MED AT:[facility] [place] [phone] PARKINSON MD Immunofixation Result SEE NOTE [facility] Comment:Normal pattern. No m onoclonal proteins detected. 04/14/2024 12:4 7 PM EST 04/14/2024 12:47 PM EST 2threads External Data Provider LAB BLOOD ORDERAB LES Final Result Performing Organization Address [facility] de Phone Number [facility] [address] [place] [phone] * Cortisol Random (04/14/2024 12:47 PM EST) [facility] Cortisol Random 5.7 ug/dL [facility] Comment:Reference Range*: Be fore 10 am 6.2-19.4 ug/dL After 5 pm 2.3-11.9 ug/dL*Please interpret above results accordingly.This test was performed using the [employer] chemiluminescentmethod. Values obtained from different assay methods cannotbe used interchangeably.Patients receiving fludrocortisone, prednisolone orprednisone may show artificially elevated cortisol valuesdue to cross-reactivity. 04/14/2024 12:4 7 PM EST 04/14/2024 12:47 PM EST Generic External Data Provider LAB BLOOD ORDERAB LES Final Result Performing Organization Address [facility] Co de Phone Number [facility] [address] [place] [phone] * Ferritin (04/14/2024 12:47 PM EST) Pathologist [facility] Ferritin 61 10 - 250 ng/mL [facility] 04/14/2024 12:4 7 PM EST 04/14/2024 12:47 PM EST us Gil Brewer MD LAB BLOOD ORDERABLES Final Resul t Performing Organization Address [facility] Co de Phone Number [facility] [address] [place] [phone] * Iron And Total Iron Binding Capacity (04/14/2024 12:47 PM EST) Iron 77 30 - 160 mcg/dL [facility] Total Iron Binding Capacity 339 228 - 428 mcg/dL [facility] Percent Iron Saturation 23 15 - 50 % [facility] Unsaturated Iron Binding 262 ug/dL [facility] 04/14/2024 12:4 7 PM EST 04/14/2024 12:47 PM EST us Gil Brewer MD LAB BLOOD ORDERABLES Final Resul t Performing Organization Address [facility] Co de Phone Number [facility] [address] [place] [phone] * (ABNORMAL) Basic Metabolic Panel (04/14/2024 12:47 PM EST) Sodium 139 135 - 145 mmol/L [facility] Potassium 4.3 3.3 - 5.1 mmol/L [facility] Chloride 104 96 - 108 mmol/L [facility] Carbon Dioxide 27 22 - 29 mmol/L [facility] Anion Gap 12 12 - 20 [facility] Urea Nitrogen (BUN) 7(L) 9 - 16 mg/dL [facility] Creatinine, Serum 0.69 0.5 - 1.4 mg/dL [facility] Estimated Glomerular Filt Rate >60 [facility] Comment:Chronic Kidney Disea se: Estimated GFR < 60 mL/min/1.11w6Dhssgu Kidney Disease: Estimated GFR < 15 mL/min/1.73m2 Glucose 84 60 - 115 mg/dL [facility] Calcium 9.5 8.4 - 10.2 mg/dL [facility] 04/14/2024 12:4 7 PM EST 04/14/2024 12:47 PM EST us Gil Name MD LAB BLOOD ORDERABLES Final Resul t [facility] [address] [place], [place] [phone] * (ABNORMAL) CBC auto differential (04/14/2024 12:47 PM EST) White Blood Count 6.5 4.8 - 10.8 X10*3/uL [facility] Red Blood Count 3.74(L) 4.20 - 5.50 X10*6/uL [facility] Hemoglobin 9.4(L) 12.0 - 16.0 g/dl [facility] Hematocrit 29.6(L) 37.0 - 47.0 % [facility] Mean Corpuscular Volume 79.1(L) 80.0 - 98.0 fL [facility] Mean Corpuscular Hemoglobin 25.1(L) 27.0 - 33.0 pg [facility] Mean Corpuscular HGB Conc 31.8 31.0 - 35.0 g/dl [facility] Red Cell Distribution Width 16.1(H) 11.0 - 16.0 % [facility] Platelet Count 530(H) 160 - 400 X10*3/uL [facility] Mean Platelet Volume 9.6 9.4 - 12.3 fL [facility] Neutrophils Percent Auto 56.2 45 - 73 % [facility] Imm Gran Pct Auto 0.6(H) 0.0 - 0.4 % [facility] Lymphocytes Percent Auto 32.5 20 - 40 % [facility] Monocytes Percent Auto 8.8 2 - 11 % [facility] Eosinophils Percent Auto 1.4 0 - 4 % [facility] Basophils Percent Auto 0.5 0 - 2 % [facility] NRBC Pct Auto 0.0 0.0 - 0.2 /100WBC [facility] Neutrophils Absolute Auto 3.7 2.0 - 8.3 x10*3/uL [facility] Imm Gran Abs Auto 0.04(H) 0.00 - 0.03 X10*3/uL [facility] Lymphocytes Absolute Auto 2.1 1.2 - 4.9 X10*3/uL [facility] Monocytes Absolute Auto 0.6 0.1 - 1.2 X10*3/uL [facility] Eosinophils Absolute Auto 0.1 0.0 - 0.4 X10*3/uL [facility] Basophils Absolute Auto 0.0 0.0 - 0.2 X10*3/uL [facility] NRBC Abs Auto 0.000 0.0 - 0.012 X10*3/uL [facility] 04/14/2024 12:4 7 PM EST 04/14/2024 12:47 PM EST us Gil Brewer MD LAB BLOOD ORDERABLES Final Resul t Performing Organization Address City/[facility]/ZIP Co de Phone Number [facility] [address] [place] [address] [phone] * (ABNORMAL) Osmolality, Urine (04/14/2024 12:45 PM EST) OSMOLALITY URINE 212(L) 373 - 1,093 mosm/kg [facility] 04/14/2024 12:4 5 PM EST 04/14/2024 1:55 PM EST us Generic External Data Provider LAB URINE ORDERAB LES Final Result Performing Organization Address [facility] Co de Phone Number [facility] [address] [place] [address] [phone] * Sodium Without creatinine, Random Urine (04/14/2024 12:45 PM EST) Sodium Urine Random 47.0 mmol/L [facility] 04/14/2024 12:4 5 PM EST 04/14/2024 1:55 PM EST us Generic External Data Provider LAB BLOOD ORDERAB LES Final Result [facility] [address] [place] [address] [phone] documented in this encounter Visit Diagnoses Not on filedocumented in this encounter Additional Health Concerns Assessment Noted Time PHQ-9 Depression Total Score: 3 06/15/19 24 11:48 AM EDT documented as of this encounter Care Teams Pasteurizer Helper Relationship Specialty Start Date End Date Maddie Kim MD [address] [place] [address] PCP - General Family Medicine 07/12/20 Willie Gage 01/17/22 documented as of this encounter
[2024-04-24 07:57] LABS: MANUAL DIFF FLAG NO
[2024-04-24 08:03] LABS: Basophils Absolute Auto 0.1 X10*3/uL (0.0-0.2); Basophils Percent Auto 1.1 % (0-2); Eosinophils Absolute Auto 0.2 X10*3/uL (0.0-0.4); Eosinophils Percent Auto 3.2 % (0-4); Hematocrit 35.8 % (37.0-47.0); Hemoglobin 11.2 g/dl (12.0-16.0); Imm Gran Abs Auto 0.01 X10*3/uL (0.00-0.03); Imm Gran Pct Auto 0.2 % (0.0-0.4); Lymphocytes Percent Auto 36.5 % (20-40); Mean Corpuscular HGB Conc 31.3 g/dl (31.0-35.0); Mean Corpuscular Hemoglobin 25.2 pg (27.0-33.0); Mean Corpuscular Volume 80.6 fL (80.0-98.0); Mean Platelet Volume 10.2 fL (9.4-12.3); Monocytes Absolute Auto 0.6 X10*3/uL (0.1-1.2); Monocytes Percent Auto 10.4 % (2-11); Neutrophils Absolute Auto 2.7 x10*3/uL (2.0-8.3); Neutrophils Percent Auto 48.6 % (45-73); Platelet Count 366 X10*3/uL (160-400); Red Blood Count 4.44 X10*6/uL (4.20-5.50); Red Cell Distribution Width 15.7 % (11.0-16.0); White Blood Count 5.6 X10*3/uL (4.8-10.8)
[2024-04-24 08:24] LABS: Anion Gap 10 (12-20); Blood Urea Nitrogen 8 mg/dL (9-16); Calcium 9.8 mg/dL (8.4-10.2); Carbon Dioxide 26 mmol/L (22-29); Chloride 109 mmol/L (96-108); Estimated Glomerular Filt Rate > 60; Glucose Random 98 mg/dL (60-115); Potassium 4.1 mmol/L (3.3-5.1); Sodium 141 mmol/L (135-145)
--- NOTE | 2024-04-25 23:50 | P.PNPSP_ITS ---
Subjective Subjective Date of Service: 04/24/24 Reason For Visit: E87.1, D64.9 Diagnostics Labs 04/24/24 07:53 04/24/24 07:53 Labs: Laboratory Results - last 48 hr 04/24/24 07:53 WBC 5.6 RBC 4.44 Hgb 11.2 L Hct 35.8 L D MCV 80.6 MCH 25.2 L MCHC 31.3 RDW 15.7 Plt Count 366 D MPV 10.2 Immature Gran % (Auto) 0.2 Neut % (Auto) 48.6 Lymph % (Auto) 36.5 Dougherty % (Auto) 10.4 Eos % (Auto) 3.2 Baso % (Auto) 1.1 Lymph # (Auto) 2.0 Dougherty # (Auto) 0.6 Eos # (Auto) 0.2 Baso # (Auto) 0.1 Abs Immat Gran (auto) 0.01 Absolute Neuts (auto) 2.7 Absolute Nucleated RBC 0.000 Nucleated RBC % (auto) 0.0 Sodium 141 Potassium 4.1 Chloride 109 H Carbon Dioxide 26 Anion Gap 10 L BUN 8 L Creatinine 0.82 Estim Creat Clear Calc Not Reportable Estimated GFR > 60 Random Glucose 98 Calcium 9.8 Assessment & Plan Certification I certify that partial hospital treatment is medically necessary due to the symptoms and problems resulting from the patient's mental illness and the failure to treat the patient at the partial hospital level of care would likely result in the patient requiring inpatient psychiatric care which could not be prevented at a less intensive level of care. Total time managing care of this patient today ____ minutes. Discharge Plan Discharge Primary Care Provider: Maddie Kim Patient Disposition: Home, Self-Care Discharge Medications: No Action prazosin 5 mg capsule 5 mg PO BEDTIME 30 Days Qty: 30 0RF docusate sodium 100 mg capsule 100 mg PO BID Patient Comments: Patient takes PRN. Rx Instructions: Patient takes PRN. folic acid 1 mg tablet 1 mg PO DAILY cyclobenzaprine 10 mg Tablet 10 mg PO TID Rx Instructions: Patient takes PRN. thiamine HCl (vitamin B1) 100 mg Tablet 100 mg PO DAILY magnesium citrate 125 mg Capsule 250 mg PO DAILY Rx Instructions: Two capsules daily. Vivitrol 380 mg Suspension,Extended Rel Recon 380 mg IM QMONTH celecoxib [Celebrex] 200 mg Capsule 200 mg PO BEDTIME topiramate 50 mg tablet 50 mg PO BEDTIME Qty: 30 0RF cholecalciferol (vitamin D3) [Vitamin D3] 50 mcg (2,000 unit) tablet 100 mcg PO DAILY Qty: 60 0RF cariprazine 3 mg capsule 3 mg PO DAILY Qty: 30 0RF propranolol 10 mg tablet See Rx Instructions .ROUTE .COMPLEX Qty: 120 0RF Rx Instructions: take 2 tablets po daily in AM, take one tablet po daily at noon, take one tablet po daily at 5pm gabapentin 300 mg capsule 300 mg PO TID PRN (Reason: Anxiety, pain) Qty: 90 0RF multivitamin Tablet 1 tab PO BID omeprazole 20 mg capsule,delayed release(DR/EC) 20 mg PO DAILY@0630 sennosides [Senna Lax] 8.6 mg Tablet 17.2 mg PO BEDTIME Qty: 90 0RF epinephrine 0.3 mg/0.3 mL auto-injector 1 mg IM DAILY PRN lisinopril 40 mg tablet 40 mg PO DAILY minoxidil 2.5 mg tablet 1.25 mg PO DAILY Rx Instructions: Take one half a tab daily. Print Language: Maltese Discharge Date/Time: 04/24/24 07:44
== END 2024-04-24 07:44 | disposition home or self-care (01) ==
LOC: HO.LAB 07:43
PROVIDERS: PCP General Practice; Visit Provider Psychiatry & Neurology Psychiatry
DX: E87.1 Hypo-osmolality and hyponatremia (principal); D64.9 Anemia, unspecified
CPT/HCPCS: 36415; 80048; 85025

== ENCOUNTER 2024-04-24 09:00 | Outpatient (RCR) | payer OTHER, SELFPAY ==
[2024-03-12 12:00] VITALS: BP 94/60; PULSE 72; TEMP 36.6
[2024-03-12 12:04] VITALS: BMI 43.7
--- NOTE | 2024-03-12 13:51 | PC.ADMIT ---
Patient is a 48 year old female who self referred to [facility] level of care d/t recent relapse of alcohol for 3 days after being sober for the past 8 months. Patient also stated she is struggling with depression, anxiety, and loneliness. She reports feeling lonely since moving into her new apartment and reports having to turn in her previous car as she could not afford the payment thus has another car with a lesser monthly payment however continues to struggle financially. Patient is currently unemployed. Patient stated, I had the best job. They said I could come back if I get my health together . Identified supports are her daughter, therapist, Joe from [facility] and sponsor. Patient reports a history of substance use. Stated she was overusing a Percocet prescription in 2022 after being prescribed Percocet after surgery. She also reports history of being narcaned when she overdosed while at [facility]. Patient stated she is using Marijuana edibles daily and wants to quit using all substances. Reports she feels happier when she is not using however it is hard for her to stop using Marijuana. Patient is on MAT for alcohol with Vivitrol. She denied any history of alcohol withdrawal with no current sxs of withdrawal. VSS BP 92/60 P 76. Patient also has a history of cocaine use, reports last use 2017. Patient is alert and oriented x4. She is calm and cooperative. Thoughts are clear and logical. She presented with depressed mood and affect. Denied SI. no HI. She was given a copy of her safety plan if needed. Patient reports her goal is to go back to work. Wants to learn healthy coping skills to deal with her emotions. Patient has VNA services for medication administration through [facility]. She reports taking medications as prescribed. Medications reconciled with patient, patient's pharmacy, and NABIL Aguilar from [facility].
--- NOTE | 2024-03-13 15:19 | PHP/IOPCOSI ---
Pt's case was opened and reviewed in treatment team.
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
--- NOTE | 2024-03-18 08:33 | PC.NURSE ---
Atiya called out this morning d/t c/o sleeping 3 hours a night since and c/o dizziness. Reports taking Nyquil last night with no effect. Patient has a dx of Bipolar d/o current episode depressed and hx of polysubstance use with recent relapse on alcohol. Dr. Nagy increased Gabapentin from 600mg TID to 600mg BID and 1200 mg in the evening and added Topamax 25 mg in the evening. Patient reports long history of sleep issues. She also stated since she stopped using edible marijuana while at [facility] as she wanted to quit using she has not been able to sleep. Dr Soto is aware of the above information. Per Dr. Charles Christophery can take Topamax 50 mg this evening and he will see her this week. I called Atiya and left her a message to call me back. Awaiting call back.
--- NOTE | 2024-03-20 11:41 | HO.PHPPROGNO ---
Subjective Subjective Date of Service: 03/20/24 Reason For Visit: depression Interim History: 03/13/24 Admit Note: 48 yo with Bipolar I Disorder, PTSD, complex PMH including HTN, chronic pain, obesity as well as hx of polysubstance addiction including cocaine, OUD in past), current cannabis and AUD with recent 3 day relapse after 8 months sober. Stopped drinking yesterday after finding out she was accepted into grad school. On Vivitrol IM, we also discussed whether Antabuse, which patient expressed much interest in, feeling she has a lot to lose with getting into grad school. We will visit this in the next week, seeing as she last drank was only <48 hrs ago. She also complains of panic symptoms and anxiety, especially interferes with driving. However BP today is 94/60. Patient reports previously dose of lisinopril was 5 mg up until the Fall 2023, had multiple ED visits for hypertensive crises, dose of lisinopril was increased to 40 mg and HCTZ was added. Today she presents with hypotension, has had a few bouts of mild dizziness, low energy in the past month or 2. She feels elevated BP was in setting of specific stressors last Fall that have since passed. For now will lower HCTZ to 12.5 mg for now and perhaps discontiue if tolerated, which may normalize BP in order to make some space for potential treatment with a b-ty or a-2agonist to target somatic anxiety/panic symptoms Today: All have you been taking the Topamax actually met with patient. Reviewed chart. Overall patient reports since 03/13/2024, sleep has been terrible. This is also in the context of giving up edible THC which was 50 mg twice daily. Reason for giving this up was part of recovery and also affordability. Anxiety has been high also in this context. Reviewed medications and reports visiting nurse service 3 times per week and they take blood pressure during each visit. Visits on Wednesdays and Fridays and blood pressure yesterday was in the 130s over 90s. Reports blood pressure is almost always high. Has not had Depakote level checked in a significant period of time and will get this done tomorrow morning. Regarding medication strategies, we discussed increasing nighttime gabapentin, starting Seroquel, considering clonidine, hydroxyzine or trazodone. Patient reports clonidine, hydroxyzine and trazodone are not effective. Also reported being on Ambien in the past and having adverse reaction. There is reluctance regarding Seroquel due to previous weight gain, but prefers to try that over gabapentin increase. We also discussed that Topamax may offset any potential weight gain. Gave following written information for [facility] request: This is to confirm the following med changes as of today: - Topamax will be increased to 50mg each evening - Seroquel started at 50mg bedtime and 50mg as needed bedtime for insomnia. New script sent to pharmacy today Follow up after weekend ref med changes and labwork. Medication Compliance: Yes Side effects from medications: No Attending Groups: Yes Review of Systems Acute medical concerns: No Review of Systems Review of Systems Unremarkable Mental Status Exam Mental Status Exam Narrative: Pleasant. Engaged. Casually dressed and presented. Organized. Does appear dysthymic. No SI or HI evident. No agitation or psychosis. Insight and judgment fair Diagnostics Vital Signs (24Hr): BMI result Body Mass Index 43.7 Assessment & Plan Assessment & Plan (1) PTSD (post-traumatic stress disorder): Status: Acute Code(s): F43.10 - Post-traumatic stress disorder, unspecified (2) Alcohol use disorder, moderate, dependence: Status: Acute Code(s): F10.20 - Alcohol dependence, uncomplicated (3) Bipolar I disorder, most recent episode (or current) depressed: Status: Acute Code(s): F31.30 - Bipolar disorder, current episode depressed, mild or moderate severity, unspecified (4) Cannabis use with cannabis-induced disorder: Status: Acute Code(s): F12.99 - Cannabis use, unspecified with unspecified cannabis-induced disorder Plan 03/13/24: 48 yo with Bipolar I Disorder, PTSD, complex PMH including HTN, chronic pain, obesity as well as hx of polysubstance addiction including cocaine, OUD in past), current cannabis and AUD with recent 3 day relapse after 8 months sober. Stopped drinking yesterday after finding out she was accepted into grad school. On Vivitrol IM, we also discussed whether Antabuse, which patient expressed much interest in, feeling she has a lot to lose with getting into grad school. We will visit this in the next week, seeing as she last drank was only <48 hrs ago. She also complains of panic symptoms and anxiety, especially interferes with driving. However BP today is 94/60. Patient reports previously dose of lisinopril was 5 mg up until the Fall 2023, had multiple ED visits for hypertensive crises, dose of lisinopril was increased to 40 mg and HCTZ was added. Today she presents with hypotension, has had a few bouts of mild dizziness, low energy in the past month or 2. She feels elevated BP was in setting of specific stressors last Fall that have since passed. For now will lower HCTZ to 12.5 mg for now and perhaps discontiue if tolerated, which may normalize BP in order to make some space for potential treatment with a b-ty or a-2agonist to target somatic anxiety/panic symptoms Admit to PHP VS reviewed: anjali, BP 94/60;?72 bpm start topiramate 25-50 mg daily in evening to target anxiety to support reduction in THC consumption increase gabapentin from 600 mg TID to 600/600/1200 (to help with sleep, anxiety, pain,etoh receovery) cont Vivitrol 380 mg IM q monthly cont Depakote 1000 mg BID cont Invega Sustenna 234 mg IM q monthly cont prazosin 5 mg qhs cont lisinopril 40 mg qd decrease HCTZ from 25 mg to 12.5 mg qd (borderline-low/NT BP) metformin 1000 mg qhs (reportedly to mitigate weight gain, which thus far has not been helpful) continue other regular medications: cyclobenzaprine 10 mg TID, celecoxib 200 mg, omeprazole 20 mg, minoxidil, docusate, bisacodyl including various supplements vit B1, B9, B12, Mg, MV? Routine lab work ordered as indicated - will check carnitine levels EKG, routine for baseline QTc for medication considerations as indicated [facility]: Has not had Depakote level checked in a significant period of time and will get this done tomorrow morning. Regarding medication strategies, we discussed increasing nighttime gabapentin, starting Seroquel, considering clonidine, hydroxyzine or trazodone. Patient reports clonidine, hydroxyzine and trazodone are not effective. Also reported being on Ambien in the past and having adverse reaction. There is reluctance regarding Seroquel due to previous weight gain, but prefers to try that over gabapentin increase. We also discussed that Topamax may offset any potential weight gain. Follow up after weekend ref med changes and labwork. Gave following written information for [facility] at [facility] request: This is to confirm the following med changes as of today: - Topamax will be increased to 50mg each evening - Seroquel started at 50mg bedtime and 50mg as needed bedtime for insomnia. New script sent to pharmacy today Patient educated on: medication risk/benefits Informed Consent: understands Reason for contiued partial hosp. stay Substantial Risk for: inability to function Certification I certify that partial hospital treatment is medically necessary due to the symptoms and problems resulting from the patient's mental illness and the failure to treat the patient at the partial hospital level of care would likely result in the patient requiring inpatient psychiatric care which could not be prevented at a less intensive level of care. Total time managing care of this patient today ____ minutes. Discharge Plan Discharge Attending provider: Mirtha Ngay Medications: New topiramate 50 mg tablet 25 - 50 mg PO .daily in evening Qty: 20 0RF gabapentin 600 mg tablet See Rx Instructions .ROUTE .COMPLEX Qty: 60 0RF Rx Instructions: take 1 tablet po daily in AM, 1 tablet po daily in afternoon and 2 tablets po daily at bedtime quetiapine [Seroquel] 50 mg tablet 50 mg PO BEDTIME Qty: 14 0RF Rx Instructions: 1 tab bedtime and 1 tab as needed for insomnia Continued divalproex 500 mg Tablet,Delayed Release (Dr/Ec) 1,000 mg PO BID 30 Days Qty: 120 0RF prazosin 5 mg capsule 5 mg PO BEDTIME 30 Days Qty: 30 0RF omeprazole 20 mg capsule,delayed release(DR/EC) 20 mg PO DAILY 30 Days Qty: 30 0RF docusate sodium 100 mg capsule 100 mg PO BID Patient Comments: Patient takes PRN. Rx Instructions: Patient takes PRN. cyanocobalamin (vitamin B-12) 500 mcg tablet 500 mcg DAILY folic acid 1 mg tablet 1 mg PO DAILY Invega Sustenna 234 mg/1.5 mL syringe 234 mg IM QMONTH cyclobenzaprine 10 mg Tablet 10 mg PO TID Rx Instructions: Patient takes PRN. thiamine HCl (vitamin B1) 100 mg Tablet 100 mg PO DAILY metformin 500 mg Tablet Extended Release 24hr 1,000 mg PO QPM Rx Instructions: Take 2 capsules in the evening. magnesium citrate 125 mg Capsule 250 mg PO DAILY Rx Instructions: Two capsules daily. Vivitrol 380 mg Suspension,Extended Rel Recon 380 mg IM QMONTH celecoxib [Celebrex] 200 mg Capsule 200 mg PO BEDTIME bisacodyl [Dulcolax (bisacodyl)] 5 mg Tablet,Delayed Release (Dr/Ec) 10 mg PO BEDTIME lisinopril 40 mg tablet 40 mg PO DAILY hydrochlorothiazide 25 mg tablet 25 mg PO DAILY minoxidil 2.5 mg tablet 1.25 mg PO DAILY Rx Instructions: Take one half a tab daily. Discontinued gabapentin 300 mg Capsule 600 mg PO TID No Action multivitamin Capsule 1 cap PO BID calcium 600 mg Capsule 1,200 mg PO DAILY Rx Instructions: Take 2 capsules at noontime. Stand Alone Forms: Patient Portal Discharge page Print Language: Romansh Telehealth Telehealth Telehealth Platform: Other (please specify) ([email or web address]) Location of provider rendering services: other Location of patient: other ([facility] Patient Identification confirmed using: Name, : Yes Telehealth method: video Patient verbally consented to treatment: Yes Minutes spent on Phone/Video with Pt.: 15
--- NOTE | 2024-03-21 12:20 | PC.NURSE ---
Reviewed CBC results including WBC 4.2, HGB 10.8, HCT 31.7, MCV 74.4, MCH 25.4, NEUT PCT AUTO 33.4, LYMPH PCT AUTO 47.3, MONO 14.8, ANC 1.[address] Soto.No new orders.
--- NOTE | 2024-03-24 11:11 | PC.NURSE ---
Atiya not scheduled to attend the program today. Lab results including NA+ 125, CL 90, Saturation 14, GGT 58, Vit D 27.2, Prolactin 45.5, Vit B12 Greater than 2000, WBC 4.2, HGB 10.8, HCT 31.7, MCV 74.4, MCH 25.4, Neut PCT auto 33.4, Lympth PCT auto 47.3, [place] pct auto 14.8, Anc Neut 1.4. I spoke to Atiya. She denied Nausea or vomiting, no Headache, no confusion. She reports fatigue however has not been sleeping well. Also reports muscle spasms yesterday and took Flexaril as a result. I let Atiya know that Dr. Nagy will be calling her today to review lab results. Reviewed all aforementioned information with Dr. Nagy. No new orders. Dr. Nagy to review lab results with Atiya via phone call.
--- NOTE | 2024-03-24 21:30 | P.PNPSP_ITS ---
Subjective Subjective Date of Service: 03/24/24 Reason For Visit: depression Interim History: We reviewed serum Na 125, patient endorses >12 month history of fatigue, muscle cramping,brain fog, headaches. Symptoms worsened in the past 3 or 4 months, which seems to coincide with changes to her antihypertensive medication regime (lisinopril was increased from 5 mg to 40 mg, HCTZ 25 m added on). She denies any issues with n/v, headaches have resolved. She has reported issues with brain fog, forgetfulness, headaches dissipated over the winter. No disorientation. No seizures. Mood continues to be low, sleep disrupted, difficulty staying asleep. She's been on VPA for a few years. Even prior to increase in diuretics last Fall, she is noted to have been running borderline low on sodium ( May/2023, Na 135) Diuretics now causing hyponatremia, also AEDs VPA, gabapentin not helping. I'd like to try lowering her HCTZ again. I spoke with her SOUMYAA/Lauren who says her BP has been running high this week 130-140s/90 so will have patient reach out to her PCP to schedule appointment penelope and will recheck Na in the AM. For now will discontinue topiramate 25 mg and lower gabapentin back to 600 mg tid. We also discussed possibly transitioning off of VPA onto a different, non-anticonvul dayami, and preferably third-generation, mood stabilizer such as cariprazine, which hopefully will not cause the weight gain that other antipsychotic mood stabilizers have caused her in the past. Medication Compliance: Yes Side effects from medications: Yes Attending Groups: Yes Review of Systems Acute medical concerns: Yes Na 125, patient stable, mentating well. Will recheck labs in AM Review of Systems Review of Systems Unremarkable Mental Status Exam Mental Status Exam Narrative: Pleasant. Engaged. Casually dressed and presented. Organized. Does appear dysthymic. No SI or HI evident. No agitation or psychosis. Insight and judgment fair Diagnostics Vital Signs (24Hr): BMI result Body Mass Index 43.7 Assessment & Plan Assessment & Plan (1) PTSD (post-traumatic stress disorder): Status: Acute Code(s): F43.10 - Post-traumatic stress disorder, unspecified (2) Alcohol use disorder, moderate, dependence: Status: Acute Code(s): F10.20 - Alcohol dependence, uncomplicated (3) Bipolar I disorder, most recent episode (or current) depressed: Status: Acute Code(s): F31.30 - Bipolar disorder, current episode depressed, mild or moderate severity, unspecified (4) Cannabis use with cannabis-induced disorder: Status: Acute Code(s): F12.99 - Cannabis use, unspecified with unspecified cannabis-induced disorder (5) Hyponatremia: Status: Acute Code(s): E87.1 - Hypo-osmolality and hyponatremia Plan Recheck lab work tomorrow AM, serum and urine Na, serum osmolality, urine osm, (if <124 will likely send over to ED for eval, otherwise will reach out to PCP office to get appt penelope and will fax over lab work) Reviewed labwork: hyponatremic level 125, mild symptoms appears to coincide with increase in lisinopril from 5 to 40 mg plus addition of HCTZ last Fall spoke [facility] who reports BPs ranging 130s/80-90s. Diuretics bigger culprits but since BP is NT/borderline high, hold topiramate return dose of gabapentin to 600 mg TID cont Depakote 1000 mg BID cont lisinopril 40 mg qd cont HCTZ 25 mg qd cont Vivitrol 380 mg IM q monthly cont Invega Sustenna 234 mg IM q monthly cont prazosin 5 mg qhs cont metformin 1000 mg qhs (reportedly to mitigate weight gain, which thus far has not been helpful) continue other regular medications: cyclobenzaprine 10 mg TID, celecoxib 200 mg, omeprazole 20 mg, minoxidil, docusate, bisacodyl including various supplements vit B1, B9, B12, Mg, MV? EKG, routine for baseline QTc for medication considerations as indicated UDS as indicated Patient educated on: diagnosis, medication risk/benefits, substance abuse and medical condition Informed Consent: understands Reason for contiued partial hosp. stay Substantial Risk for: med/psych decompensation Certification I certify that partial hospital treatment is medically necessary due to the symptoms and problems resulting from the patient's mental illness and the failure to treat the patient at the partial hospital level of care would likely result in the patient requiring inpatient psychiatric care which could not be prevented at a less intensive level of care. Total time managing care of this patient today _45___ minutes. Discharge Plan Discharge Attending provider: Mirtha Nagy Medications: New topiramate 50 mg tablet 25 - 50 mg PO .daily in evening Qty: 20 0RF gabapentin 600 mg tablet See Rx Instructions .ROUTE .COMPLEX Qty: 60 0RF Rx Instructions: take 1 tablet po daily in AM, 1 tablet po daily in afternoon and 2 tablets po daily at bedtime cholecalciferol (vitamin D3) [Vitamin D3] 50 mcg (2,000 unit) tablet 100 mcg PO DAILY Qty: 60 0RF Continued divalproex 500 mg Tablet,Delayed Release (Dr/Ec) 1,000 mg PO BID 30 Days Qty: 120 0RF prazosin 5 mg capsule 5 mg PO BEDTIME 30 Days Qty: 30 0RF omeprazole 20 mg capsule,delayed release(DR/EC) 20 mg PO DAILY 30 Days Qty: 30 0RF docusate sodium 100 mg capsule 100 mg PO BID Patient Comments: Patient takes PRN. Rx Instructions: Patient takes PRN. cyanocobalamin (vitamin B-12) 500 mcg tablet 500 mcg DAILY folic acid 1 mg tablet 1 mg PO DAILY Invega Sustenna 234 mg/1.5 mL syringe 234 mg IM QMONTH cyclobenzaprine 10 mg Tablet 10 mg PO TID Rx Instructions: Patient takes PRN. thiamine HCl (vitamin B1) 100 mg Tablet 100 mg PO DAILY metformin 500 mg Tablet Extended Release 24hr 1,000 mg PO QPM Rx Instructions: Take 2 capsules in the evening. magnesium citrate 125 mg Capsule 250 mg PO DAILY Rx Instructions: Two capsules daily. Vivitrol 380 mg Suspension,Extended Rel Recon 380 mg IM QMONTH celecoxib [Celebrex] 200 mg Capsule 200 mg PO BEDTIME bisacodyl [Dulcolax (bisacodyl)] 5 mg Tablet,Delayed Release (Dr/Ec) 10 mg PO BEDTIME quetiapine [Seroquel] 50 mg tablet 50 mg PO BEDTIME Qty: 30 0RF Rx Instructions: 1 tab bedtime and 1 tab as needed for insomnia lisinopril 40 mg tablet 40 mg PO DAILY hydrochlorothiazide 25 mg tablet 25 mg PO DAILY minoxidil 2.5 mg tablet 1.25 mg PO DAILY Rx Instructions: Take one half a tab daily. Discontinued gabapentin 300 mg Capsule 600 mg PO TID No Action multivitamin Capsule 1 cap PO BID calcium 600 mg Capsule 1,200 mg PO DAILY Rx Instructions: Take 2 capsules at noontime. Stand Alone Forms: Patient Portal Discharge page Print Language: Slovenian Telehealth Telehealth Telehealth Platform: Other (please specify) ([employer]) Location of provider rendering services: other (private office) Location of patient: other ([facility]) Patient Identification confirmed using: Name, : Yes Telehealth method: video
[2024-03-25 10:30] VITALS: BP 100/62; PULSE 96
--- NOTE | 2024-03-25 12:14 | PM.EVENT ---
Event Note Date of Service: 03/25/24 Event Note: Received page around 2pm for critical sodium 119 from repeat lab work this morning. Called and spoke with patient who was home, had left program a bit early due to feeling unwell, continues to c/o weakness, muscle cramps/soreness, malaise. She was informed of criticals lab and instructed to go to ED, she was strongly advised against driving herself, but rather to call 911 since she wouldn't otherwise have a ride. Time Spent With Patient Time: Total time managing care of this patient today __10__ minutes.
--- NOTE | 2024-03-31 22:48 | HO.PHPPROGNO ---
Subjective Subjective Date of Service: 03/31/24 Reason For Visit: depression Interim History: Patient returns to [facility] after being hospitalized and treated for hyponatremia from 03/25-03/27. Last we spoke, she had a critical Na level of 119 taken earlier in the day when she was at the program, and was advised to call EMS to be brought in to ED for evaluation. Wow I feel like a million bucks She was admitted, treated on IV replacement and HCTZ discontinued. She had been experiencing worsening fatigue, muscle cramping, feeling dizzy, mentally foggy, unwell for several months. She is grateful to have the cause identified and addressed. She reports her mood is good . Denies any depression or manic symptoms, feels stable. Mood greatly improved with resolution of physical complaints. It is noted that she has been on VPA for many years. Two years ago REEDER Invega was added, which fully stabilized her, denies any major manic episodes since. VPA remains unchanged. Given long standing propensity toward borderline lowish Na level (133 to high 130s, per emr) even before sharp increase in lisinopril and addition of hctz introduced in the Fall. We agree to see if there is room for lower dose of VPA, especially since patient has been stable on REEDER. She is eager to restart topiramate to help mitigate weight gain. Medication Compliance: Yes Side effects from medications: No Attending Groups: Yes Review of Systems Acute medical concerns: No Review of Systems Review of Systems Unremarkable Mental Status Exam Mental Status Exam Narrative: Pleasant. Engaged. Casually dressed and presented. Organized. Euthymic. AFfect variable, bright, mood congruent. No SI or HI evident. No agitation or psychosis. Insight and judgment fair-good. Diagnostics Vital Signs (24Hr): BMI result Body Mass Index 43.7 Assessment & Plan Assessment & Plan (1) PTSD (post-traumatic stress disorder): Status: Acute Code(s): F43.10 - Post-traumatic stress disorder, unspecified (2) Alcohol use disorder, moderate, dependence: Status: Acute Code(s): F10.20 - Alcohol dependence, uncomplicated (3) Bipolar I disorder, most recent episode (or current) depressed: Status: Inactive Code(s): F31.30 - Bipolar disorder, current episode depressed, mild or moderate severity, unspecified (4) Cannabis use with cannabis-induced disorder: Status: Acute Code(s): F12.99 - Cannabis use, unspecified with unspecified cannabis-induced disorder (5) Hyponatremia: Status: Acute Code(s): E87.1 - Hypo-osmolality and hyponatremia Plan Reviewed labwork from reached to PCP to inform pt discharged from hospital and has return to program, we are looking for f/u appt still holding topiramate, plan to restart if tolerating reduction in vpa continue gabapentin 600 mg TID lower Depakote to 750 mg BID (may add 250 mg if needed) cont lisinopril 40 mg qd HCTZ was discontinued cont Vivitrol 380 mg IM q monthly cont Invega Sustenna 234 mg IM q monthly cont prazosin 5 mg qhs cont metformin 1000 mg qhs (reportedly to mitigate weight gain, which thus far has not been helpful) continue other regular medications: cyclobenzaprine 10 mg TID, celecoxib 200 mg, omeprazole 20 mg, minoxidil, docusate, bisacodyl including various supplements vit B1, B9, B12, Mg, MV? EKG, routine for baseline QTc for medication considerations as indicated UDS as indicated Patient educated on: diagnosis, medication risk/benefits, substance abuse and medical condition Informed Consent: understands Reason for contiued partial hosp. stay Substantial Risk for: rapid decompensation and med/psych decompensation Certification I certify that partial hospital treatment is medically necessary due to the symptoms and problems resulting from the patient's mental illness and the failure to treat the patient at the partial hospital level of care would likely result in the patient requiring inpatient psychiatric care which could not be prevented at a less intensive level of care. Total time managing care of this patient today __40__ minutes. Discharge Plan Discharge Attending provider: Mirtha Nagy Medications: New cholecalciferol (vitamin D3) [Vitamin D3] 50 mcg (2,000 unit) tablet 100 mcg PO DAILY Qty: 60 0RF divalproex 250 mg tablet extended release 24 hr 250 mg PO BID Qty: 60 0RF Continued divalproex 500 mg Tablet,Delayed Release (Dr/Ec) 1,000 mg PO BID 30 Days Qty: 120 0RF prazosin 5 mg capsule 5 mg PO BEDTIME 30 Days Qty: 30 0RF docusate sodium 100 mg capsule 100 mg PO BID Patient Comments: Patient takes PRN. Rx Instructions: Patient takes PRN. cyanocobalamin (vitamin B-12) 500 mcg tablet 500 mcg DAILY folic acid 1 mg tablet 1 mg PO DAILY Invega Sustenna 234 mg/1.5 mL syringe 234 mg IM QMONTH cyclobenzaprine 10 mg Tablet 10 mg PO TID Rx Instructions: Patient takes PRN. thiamine HCl (vitamin B1) 100 mg Tablet 100 mg PO DAILY metformin 500 mg Tablet Extended Release 24hr 1,000 mg PO QPM Rx Instructions: Take 2 capsules in the evening. magnesium citrate 125 mg Capsule 250 mg PO DAILY Rx Instructions: Two capsules daily. Vivitrol 380 mg Suspension,Extended Rel Recon 380 mg IM QMONTH celecoxib [Celebrex] 200 mg Capsule 200 mg PO BEDTIME bisacodyl [Dulcolax (bisacodyl)] 5 mg Tablet,Delayed Release (Dr/Ec) 10 mg PO BEDTIME quetiapine [Seroquel] 50 mg tablet 50 mg PO BEDTIME Qty: 30 0RF Rx Instructions: 1 tab bedtime and 1 tab as needed for insomnia lisinopril 40 mg tablet 40 mg PO DAILY minoxidil 2.5 mg tablet 1.25 mg PO DAILY Rx Instructions: Take one half a tab daily. Discontinued gabapentin 300 mg Capsule 600 mg PO TID No Action calcium carbonate [Calcium 600] 600 mg calcium (1,500 mg) Tablet 1,200 mg PO DAILY multivitamin Tablet 1 tab PO BID gabapentin 600 mg Tablet 1,200 mg PO BEDTIME gabapentin 600 mg tablet 600 mg PO BID@0900,1400 omeprazole 20 mg capsule,delayed release(DR/EC) 20 mg PO DAILY@0630 topiramate 50 mg tablet 50 mg PO DAILY@1900 Rx Instructions: qpm, after dinner sennosides [Senna Lax] 8.6 mg Tablet 17.2 mg PO BEDTIME Qty: 90 0RF Hydrocil Instant Packet 1 packet PO DAILY Qty: 90 0RF nicotine 21 mg/24 hr Patch 24 Hour 21 mg transdermal DAILY Qty: 30 0RF Stand Alone Forms: Patient Portal Discharge page Print Language: Zambian
[2024-04-01 12:17] VITALS: BP 120/78; PULSE 88
--- NOTE | 2024-04-04 23:56 | P.PNPSP_ITS ---
Subjective Subjective Date of Service: 04/04/24 Reason For Visit: depression Interim History: I've been having a hard time Patient presents as sad, anxious, downcast. She voices having medical concerns since being seen at [facility] on Sunday for heart concerns, noting accelerated heart rate following an argument with family. Reports she was discharged from ED with no acute findings but was told she will be referred to cardiology but is still waiting for the appointment. She is preoccupied with anxiety about her health. Still notes that her heart feels like it is racing. Anxiety is high and sleep is disrupted even with taking her usual 50 mg dose of Seroquel. She has been waking around 2am unable to fall back asleep for past 3 days. Taking another Seroquel when I wake would make me too tired to wake up for PHP in the AM and I'm already feeling more and more exhausted and fatigued . She denies any chest pain or SOB but complains of muscle soreness over her chest. I can still feel it. My chest is sore, still feel it's affecting me... I just been anxious and worried about it. My heart rate is still high for no reason.. they said it was probably anxiety and then sent me home. No med changes were made in ED. She says there was no mention of any lab findings. Reports at PCP appointment last week her sodium was 134. She is unclear what her sodium was in ED on Sunday. She is agreeable to going to lab at lunch for EKG and repeat labs/electrolytes, CK, trop. She is agreeable to taking 50 mg prn dose of Seroquel with standing HS dose of Seroquel. Will also start propranolol. Patient states her asthma is stable at this time, has not been requiring regular use of albuterol. Intermittent cannabis use. Denies SI, HI, AH, VH. Eating/drinking regularly. Medication Compliance: Yes Side effects from medications: Yes (hyponatremia presumably due to/exacerbated by diuretics, also multiple AEDs) Attending Groups: Yes Review of Systems Acute medical concerns: Yes as noted above, will send for EKG, labwork Review of Systems Review of Systems Unremarkable Mental Status Exam Mental Status Exam Narrative: Alert, oriented, in no acute distress. Anxious, tearful. Mood anxious, affect constricted. Speech normal. Thought process linear, coherent. Thought content related to stressors, preoccupied with medical concerns, denies SI or HI. Denies AH or VH. Insight and judgment - fair but adequate. Diagnostics Vital Signs (24Hr): BMI result Body Mass Index 43.7 Assessment & Plan Assessment & Plan (1) PTSD (post-traumatic stress disorder): Status: Acute Code(s): F43.10 - Post-traumatic stress disorder, unspecified (2) Alcohol use disorder, moderate, dependence: Status: Acute Code(s): F10.20 - Alcohol dependence, uncomplicated (3) Cannabis use with cannabis-induced disorder: Status: Acute Code(s): F12.99 - Cannabis use, unspecified with unspecified cannabis-induced disorder (4) Hyponatremia: Status: Acute Code(s): E87.1 - Hypo-osmolality and hyponatremia Plan Bipolar 48 yo struggling with acute exacerbation in anxiety, continued concerns for hyponatremia. HCTZ discont 03/26 due to critical Na, cont on lisinopril 40 mg since Fall 2023. On 2 Aeds. Long-term treatment on VPA for Bipolar. Invega added 2 yrs ago and has remained stable since. Vitals today: BP 104/75; P 138 noted tachycardia, will obtain EKG and also recheck Na level start propranolol 10 mg TID start clonazepam 0.5 mg qd (brief script) to help manage anxiety over holiday weekend still holding topiramate, plan to restart if tolerating reduction in VPA continue gabapentin 600 mg TID (VPA may cause hyponatremia (less so vs OXC and CBZ), other AEDs including gabapentin, clonazepam less likely) continue Depakote 750 mg BID (may add 250 mg if needed) ideally would like to continue to taper as tolerated will consider further decreases in VPA next week if HR/anxiety stabilizes continue lisinopril 40 mg qd (will reach out to PCP next week if Na level continues to drop) continue Seroquel 50 mg qhs with 50 mg prn (suggest taking prn with HS dose tonight to see if helpful for sleep) continue Invega Sustenna 234 mg IM q monthly continue prazosin 5 mg qhs continue Vivitrol 380 mg IM q monthly continue metformin 1000 mg qhs (reportedly to mitigate weight gain, which thus far has not been helpful) continue other regular medications: cyclobenzaprine 10 mg TID, celecoxib 200 mg, omeprazole 20 mg, minoxidil, docusate, bisacodyl including various supplements vit B1, B9, B12, Mg, MV? EKG, routine for baseline QTc for medication considerations as indicated UDS as indicated Patient educated on: diagnosis, medication risk/benefits and substance abuse Informed Consent: understands Reason for contiued partial hosp. stay Substantial Risk for: inability to function, rapid decompensation and med/psych decompensation Certification I certify that partial hospital treatment is medically necessary due to the symptoms and problems resulting from the patient's mental illness and the failure to treat the patient at the partial hospital level of care would likely result in the patient requiring inpatient psychiatric care which could not be prevented at a less intensive level of care. Total time managing care of this patient today _40___ minutes. Discharge Plan Discharge Attending provider: Mirtha Nagy Medications: New cholecalciferol (vitamin D3) [Vitamin D3] 50 mcg (2,000 unit) tablet 100 mcg PO DAILY Qty: 60 0RF divalproex 250 mg tablet extended release 24 hr 250 mg PO BID Qty: 60 0RF propranolol 10 mg tablet 10 - 20 mg PO TID Qty: 30 0RF Continued divalproex 500 mg Tablet,Delayed Release (Dr/Ec) 1,000 mg PO BID 30 Days Qty: 120 0RF prazosin 5 mg capsule 5 mg PO BEDTIME 30 Days Qty: 30 0RF docusate sodium 100 mg capsule 100 mg PO BID Patient Comments: Patient takes PRN. Rx Instructions: Patient takes PRN. cyanocobalamin (vitamin B-12) 500 mcg tablet 500 mcg DAILY folic acid 1 mg tablet 1 mg PO DAILY Invega Sustenna 234 mg/1.5 mL syringe 234 mg IM QMONTH cyclobenzaprine 10 mg Tablet 10 mg PO TID Rx Instructions: Patient takes PRN. thiamine HCl (vitamin B1) 100 mg Tablet 100 mg PO DAILY metformin 500 mg Tablet Extended Release 24hr 1,000 mg PO QPM Rx Instructions: Take 2 capsules in the evening. magnesium citrate 125 mg Capsule 250 mg PO DAILY Rx Instructions: Two capsules daily. Vivitrol 380 mg Suspension,Extended Rel Recon 380 mg IM QMONTH celecoxib [Celebrex] 200 mg Capsule 200 mg PO BEDTIME bisacodyl [Dulcolax (bisacodyl)] 5 mg Tablet,Delayed Release (Dr/Ec) 10 mg PO BEDTIME quetiapine [Seroquel] 50 mg tablet 50 mg PO BEDTIME Qty: 30 0RF Rx Instructions: 1 tab bedtime and 1 tab as needed for insomnia clonazepam 0.5 mg tablet 0.5 mg PO DAILY Qty: 6 0RF lisinopril 40 mg tablet 40 mg PO DAILY minoxidil 2.5 mg tablet 1.25 mg PO DAILY Rx Instructions: Take one half a tab daily. Discontinued gabapentin 300 mg Capsule 600 mg PO TID No Action calcium carbonate [Calcium 600] 600 mg calcium (1,500 mg) Tablet 1,200 mg PO DAILY multivitamin Tablet 1 tab PO BID gabapentin 600 mg Tablet 1,200 mg PO BEDTIME gabapentin 600 mg tablet 600 mg PO BID@0900,1400 omeprazole 20 mg capsule,delayed release(DR/EC) 20 mg PO DAILY@0630 topiramate 50 mg tablet 50 mg PO DAILY@1900 Rx Instructions: qpm, after dinner sennosides [Senna Lax] 8.6 mg Tablet 17.2 mg PO BEDTIME Qty: 90 0RF Hydrocil Instant Packet 1 packet PO DAILY Qty: 90 0RF nicotine 21 mg/24 hr Patch 24 Hour 21 mg transdermal DAILY Qty: 30 0RF Stand Alone Forms: Patient Portal Discharge page Print Language: Spanish
--- NOTE | 2024-04-08 15:08 | PC.NURSE ---
Addendum entered by Darlene Aguilar RN 04/10/24 09:45: Faxed lab results and EKG results done on 04/04/24 (not 04/04/23) to patient's PCP's office of Dr. Maddie Wu to review and f/u with patient if needed. I spoke to Kasandra from PCP's office and confirmed that they received the faxed lab and EKG results. Kasandra stated she will forward the results to the team and will review them with patient's provider. Original Note: Reviewed lab results and EKG completed on 04/04/[address] Nagy including Na+ 130, Gap 10, CK total 289, EKG Sinus Tachycardia Vent rate 121 BPM, possible atrial enlargment. No new orders. Reviewed lab results competed on 04/08/[address] Nagy including RBC 3.32, HGB 8.3, HCT 25.9, MCV 78.0, MCH 25.0, Imgran Pct Auto 3.0, Lymph Pct Auto 19.3, EOS Auto 4.3, ImGran Abs Auto 0.29, Na+ 134, Gap 11, BUN 7. No new orders. Patient reportedly went to [facility] last week d/t c/o tachycardia. Per Dr. Nagy patient reportedly is waiting for a referral from [facility] for Crude Tester to f/u.
--- NOTE | 2024-04-09 11:24 | HO.IOP ---
Atiya left group 15 minutes early due to a comment made by a peer regarding peer's negative view of Christians. Pt was offended by the statement, stated to the group as she felt she needed to leave because she is Sikh. This specification writer immediately interrupted the negative statement, reminded PHP members of group rules and redirected the group topic, then met individually with Atiya to reassure her of her safety and human rights in group. Atiya displayed respect and understanding for peers, while expressing her own feelings and views as being important to her and deserving of respect as well. Pt was tearful, but insightful, cooperative and showing restraint despite feeling targeted. Atiya agreed to attend groups for the remainder of the day and asked if that select peer can please refrain for speaking to her. Atiya was encouraged to come to staff or take breaks if feeling triggered or targeted again. Pt agreed.
[2024-04-09 11:55] VITALS: BP 110/60; PULSE 92
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
[2024-04-11 12:01] VITALS: BP 122/68; PULSE 92
--- NOTE | 2024-04-11 12:45 | P.PNPSP_ITS ---
Subjective Subjective Date of Service: 04/11/24 Reason For Visit: depression Interim History: Spoke with patient to review recent lab work. Anemia, likely more evident now that patient is less hypovolemic/diuresed (since HCTZ stopped) but nonetheless has been anemic for sometime and this likely more accurately reflects the degree of anemia. Denies any acute bleeding issues. Has had some bouts of bright red blood in stools and she has been referred to GI and gettign these things in or juanita. I suggested starting on daily iron supplementation in the meantime, fortunately her PCP contacted her yesterday and started her on iron 3 or 4 days a week for now. SOdium still low but stable for now 134. She has been tolerating the decrease in Depakote and does feel phsycially better, less sick feeling . Sill continue to transtion her off VPA (as tolerated) but feel she would likely benefit from another mood stabilzer in it's place. We discuss starting Vraylar to avoid medication that are weight gaining and also will be helpful for sonya. Sleep is good. Mood still irritable, but not worse. Denies any sonya. Getting a handle on helath issues which she is pleased about. DEnies any SI, HI, AH, VH. Occasional marijauna, denies alcohol or other substances. Medication Compliance: Yes Side effects from medications: No Attending Groups: Yes Review of Systems Acute medical concerns: Yes reviewed above Review of Systems Review of Systems Unremarkable Mental Status Exam Mental Status Exam Narrative: Alert, oriented, in no acute distress. Anxious, tearful. Mood anxious, affect constricted. Speech normal. Thought process linear, coherent. Thought content related to stressors, preoccupied with medical concerns, denies SI or HI. Denies AH or VH. Insight and judgment - fair but adequate. Diagnostics Vital Signs (24Hr): BMI result Body Mass Index 43.7 Assessment & Plan Assessment & Plan (1) PTSD (post-traumatic stress disorder): Status: Acute Code(s): F43.10 - Post-traumatic stress disorder, unspecified (2) Alcohol use disorder, moderate, dependence: Status: Acute Code(s): F10.20 - Alcohol dependence, uncomplicated (3) Cannabis use with cannabis-induced disorder: Status: Acute Code(s): F12.99 - Cannabis use, unspecified with unspecified cannabis-induced disorder (4) Hyponatremia: Status: Acute Code(s): E87.1 - Hypo-osmolality and hyponatremia Plan Bipolar 48 yo struggling with acute exacerbation in anxiety, continued concerns for hyponatremia. HCTZ discont 2 due to critical Na, cont on lisinopril 40 mg since Fall 2023. On 2 Aeds. Long-term treatment on VPA for Bipolar. Invega added 2 yrs ago and has remained stable since. VPA may cause hyponatremia (less so vs OXC and CBZ), but nonethess likely more problematic than other AEDs including gabapentin) so will plan to transition from VPA to Vraylar for bipolar disorder) Continue IOP Vitals today: BP 122/68; P 92 increase propranolol to 20/10/10 mg (take before 5pm) start Vraylar 1.5 mg qhs, if tolerated then can further reduce dose of VPA decrease Depakote to 500 mg in AM and continue 750 mg QHS (may add 250 mg if needed) will continue to taper as tolerated continue Seroquel 50 mg ONLY as prn for insomnia, we plan to transition onto Vraylar and off Seroquel as well (to limit polypharmacy) continue Invega Sustenna 234 mg IM q monthly taper off clonazepam 0.5 mg qd as PRN still holding topiramate, plan to restart if tolerating reduction in VPA (may be helpful for weight loss, as well as anxiety/sleep once Seroquel discont) continue gabapentin 600 mg TID continue prazosin 5 mg qhs continue Vivitrol 380 mg IM q monthly continue lisinopril 40 mg qd (will reach out to PCP next week if Na level continues to drop) continue metformin 1000 mg qhs (non-compliant)) continue other regular medications: cyclobenzaprine 10 mg TID, celecoxib 200 mg, omeprazole 20 mg, minoxidil, docusate, bisacodyl including various supplements vit B1, B9, B12, Mg, MV? EKG, routine for baseline QTc for medication considerations as indicated UDS as indicated Patient educated on: diagnosis and medication risk/benefits Informed Consent: understands Reason for contiued partial hosp. stay Substantial Risk for: rapid decompensation and med/psych decompensation Certification I certify that the patient needs IOP Services for a minimum of 9 hours per week of therapeutic services. I certify the patient is experiencing symptoms of such intensity that they are unable to be safely treated in a less intensive setting and would otherwise require?admission to a more intensive level of care. Total time managing care of this patient today _30___ minutes. Discharge Plan Discharge Attending provider: Mirtha Nagy Medications: New cholecalciferol (vitamin D3) [Vitamin D3] 50 mcg (2,000 unit) tablet 100 mcg PO DAILY Qty: 60 0RF divalproex 250 mg tablet extended release 24 hr 250 mg PO BID Qty: 60 0RF propranolol 10 mg tablet 10 - 20 mg PO TID Qty: 90 0RF cariprazine 1.5 mg capsule 1.5 mg PO BEDTIME Qty: 30 0RF topiramate 50 mg tablet 50 mg PO BEDTIME Qty: 30 0RF Continued divalproex 500 mg Tablet,Delayed Release (Dr/Ec) 1,000 mg PO BID 30 Days Qty: 120 0RF prazosin 5 mg capsule 5 mg PO BEDTIME 30 Days Qty: 30 0RF docusate sodium 100 mg capsule 100 mg PO BID Patient Comments: Patient takes PRN. Rx Instructions: Patient takes PRN. cyanocobalamin (vitamin B-12) 500 mcg tablet 500 mcg DAILY folic acid 1 mg tablet 1 mg PO DAILY Invega Sustenna 234 mg/1.5 mL syringe 234 mg IM QMONTH cyclobenzaprine 10 mg Tablet 10 mg PO TID Rx Instructions: Patient takes PRN. thiamine HCl (vitamin B1) 100 mg Tablet 100 mg PO DAILY metformin 500 mg Tablet Extended Release 24hr 1,000 mg PO QPM Rx Instructions: Take 2 capsules in the evening. magnesium citrate 125 mg Capsule 250 mg PO DAILY Rx Instructions: Two capsules daily. Vivitrol 380 mg Suspension,Extended Rel Recon 380 mg IM QMONTH celecoxib [Celebrex] 200 mg Capsule 200 mg PO BEDTIME bisacodyl [Dulcolax (bisacodyl)] 5 mg Tablet,Delayed Release (Dr/Ec) 10 mg PO BEDTIME quetiapine [Seroquel] 50 mg tablet 50 mg PO BEDTIME Qty: 30 0RF Rx Instructions: 1 tab bedtime and 1 tab as needed for insomnia clonazepam 0.5 mg tablet 0.5 mg PO DAILY Qty: 6 0RF lisinopril 40 mg tablet 40 mg PO DAILY minoxidil 2.5 mg tablet 1.25 mg PO DAILY Rx Instructions: Take one half a tab daily. Discontinued gabapentin 300 mg Capsule 600 mg PO TID No Action calcium carbonate [Calcium 600] 600 mg calcium (1,500 mg) Tablet 1,200 mg PO DAILY multivitamin Tablet 1 tab PO BID gabapentin 600 mg Tablet 1,200 mg PO BEDTIME gabapentin 600 mg tablet 600 mg PO BID@0900,1400 omeprazole 20 mg capsule,delayed release(DR/EC) 20 mg PO DAILY@0630 topiramate 50 mg tablet 50 mg PO DAILY@1900 Rx Instructions: qpm, after dinner sennosides [Senna Lax] 8.6 mg Tablet 17.2 mg PO BEDTIME Qty: 90 0RF Hydrocil Instant Packet 1 packet PO DAILY Qty: 90 0RF nicotine 21 mg/24 hr Patch 24 Hour 21 mg transdermal DAILY Qty: 30 0RF Vivitrol 380 mg suspension,extended rel recon IM lisinopril 10 mg tablet 10 mg PO DAILY triamcinolone acetonide 0.1 % cream topical celecoxib 200 mg capsule 200 mg PO DAILY metformin 500 mg tablet extended release 24 hr 500 mg PO BID gabapentin 300 mg capsule PO divalproex 500 mg tablet,delayed release (DR/EC) PO BID prazosin 5 mg capsule 5 mg PO BEDTIME thiamine HCl (vitamin B1) 50 mg tablet PO folic acid 1 mg tablet 1 mg PO DAILY omeprazole 20 mg capsule,delayed release(DR/EC) 20 mg PO DAILY cyanocobalamin (vitamin B-12) 500 mcg tablet 500 mcg PO DAILY epinephrine 0.3 mg/0.3 mL auto-injector 1 mg IM DAILY minoxidil 2.5 mg tablet 1.25 mg PO DAILY cyclobenzaprine 10 mg tablet 10 mg PO BID PRN bisacodyl [Dulcolax (bisacodyl)] 5 mg tablet,delayed release (DR/EC) 10 mg PO BEDTIME Qty: 180 4RF Stand Alone Forms: Patient Portal Discharge page Print Language: Danish
[2024-04-15 12:01] VITALS: BP 98/58; PULSE 68
--- NOTE | 2024-04-15 13:52 | HO.PHPPROGNO ---
Subjective Subjective Date of Service: 04/15/24 Reason For Visit: depression Interim History: Patient start on Vraylar, denies any issues at 1.5 mg, didn't fall straight asleep, was up watching TV for a bit but did eventually fall asleep and got the usual amount of total sleep, even though it continues to be fragmented. She has not been taking any Seroquel for sleep and does not feel this has made a big difference and is agreeable to stopping it. Depakote is down to 500 mg BID, she still feels her mood is stable, maybe a little bit more easily irritable but physically has been feeling increasingly better with a number of these underlying health issues finally getting identified and addressed. Sodium levels are gradually improving with reduction in diuretics and anticonvulsants (namely Depakote) as well as starting on iron supplements for anemia, which likely has been contributing to tachycardia. She continues to take propranolol BID (20 mg/10 mg in AM/early afternoon) and this has beneficial. Denies any adverse effects. WIll check vitals to see if dose can be increased to 20 mg BID, since she feels 20 mg works better. Depression has improved considerably since admission to [facility], rated severity down to a 3 or 4/10 from a 10/10 on admission. Irritability slight increase from a 4/10 to a 5/10 since decreasing VPA from 1000 mg BID to 500 mg BID. For now will continue at 500 mg BID and continue to titrate Vraylar to 3 mg tonight. Denies any SI, HI, AH, VH. Impulsivity low expcet for cigarette smoking now at 6 cigs/day. Not interested in nicotine cessation at the moment. No other alcohol or substance use Will check vitals to see if there's room to increase propranolol. During appointment, BP 90/70, HR 68. Been less than 2 hrs since taking AM propranolol 20 mg. WIll have RN check vitals after lunch, before next dose usually taken. . Medication Compliance: Yes Side effects from medications: No Attending Groups: Yes Review of Systems Acute medical concerns: No Review of Systems Review of Systems Unremarkable Mental Status Exam Mental Status Exam Narrative: Alert, oriented, in no acute distress. Calm, cooperative. Mood less anxious, better , affect less constricted, moments of brightening. Speech normal. Thought process linear, coherent. Thought content related to stressors denies SI or HI. Denies AH or VH. Insight fair-good and judgment - fair-good. Diagnostics Vital Signs (24Hr): Vital Signs - 24 hr 04/15/ 12:01 Pulse Rate 68 Blood Pressure 98/58 L BMI result Body Mass Index 43.7 Assessment & Plan Assessment & Plan (1) PTSD (post-traumatic stress disorder): Status: Acute Code(s): F43.10 - Post-traumatic stress disorder, unspecified (2) Alcohol use disorder, moderate, dependence: Status: Acute Code(s): F10.20 - Alcohol dependence, uncomplicated (3) Cannabis use with cannabis-induced disorder: Status: Acute Code(s): F12.99 - Cannabis use, unspecified with unspecified cannabis-induced disorder (4) Hyponatremia: Status: Acute Code(s): E87.1 - Hypo-osmolality and hyponatremia Plan VS (today): 98/58; 68 bpm increase Vraylar to 3 mg qhs still holding topiramate (plan reduction/discont VPA) continue gabapentin 600 mg TID (VPA may cause hyponatremia (less so vs OXC and CBZ), other AEDs including gabapentin, clonazepam less likely) tapering Depakote, for now continue at 500 mg BID (may add 250 mg if needed) ideally would like to continue to taper as tolerated will consider further decreases in VPA next week if HR/anxiety stabilizes still holding Seroquel 50 mg qhs, may take as PRN continue Invega Sustenna 234 mg IM q monthly continue propranolol 20 mg QAM, 10 mg QD afternoon before 5pm (can not move 2nd dose higher) continue prazosin 5 mg qhs continue lisinopril 40 mg qd (will reach out to PCP next week if Na level continues to drop) continue Vivitrol 380 mg IM q monthly d/c completed clonazepam 0.5 mg d/c metformin 1000 mg qhs (reportedly patient stopped, ineffective)) continue other regular medications: cyclobenzaprine 10 mg TID, celecoxib 200 mg, omeprazole 20 mg, minoxidil, docusate, bisacodyl including various supplements vit B1, B9, B12, Mg, MV? EKG, routine for baseline QTc for medication considerations as indicated UDS as indicated continue to monitor Patient educated on: diagnosis, medication risk/benefits and substance abuse Informed Consent: understands Reason for contiued partial hosp. stay Substantial Risk for: rapid decompensation and med/psych decompensation Certification I certify that the patient needs IOP Services for a minimum of 9 hours per week of therapeutic services. I certify the patient is experiencing symptoms of such intensity that they are unable to be safely treated in a less intensive setting and would otherwise require?admission to a more intensive level of care. Total time managing care of this patient today _30___ minutes. Discharge Plan Discharge Attending provider: Mirtha Nagy Medications: New cholecalciferol (vitamin D3) [Vitamin D3] 50 mcg (2,000 unit) tablet 100 mcg PO DAILY Qty: 60 0RF divalproex 250 mg tablet extended release 24 hr 250 mg PO BID Qty: 60 0RF propranolol 10 mg tablet 10 - 20 mg PO TID Qty: 90 0RF cariprazine 1.5 mg capsule 1.5 mg PO BEDTIME Qty: 30 0RF topiramate 50 mg tablet 50 mg PO BEDTIME Qty: 30 0RF Continued divalproex 500 mg Tablet,Delayed Release (Dr/Ec) 1,000 mg PO BID 30 Days Qty: 120 0RF prazosin 5 mg capsule 5 mg PO BEDTIME 30 Days Qty: 30 0RF docusate sodium 100 mg capsule 100 mg PO BID Patient Comments: Patient takes PRN. Rx Instructions: Patient takes PRN. cyanocobalamin (vitamin B-12) 500 mcg tablet 500 mcg DAILY folic acid 1 mg tablet 1 mg PO DAILY Invega Sustenna 234 mg/1.5 mL syringe 234 mg IM QMONTH cyclobenzaprine 10 mg Tablet 10 mg PO TID Rx Instructions: Patient takes PRN. thiamine HCl (vitamin B1) 100 mg Tablet 100 mg PO DAILY metformin 500 mg Tablet Extended Release 24hr 1,000 mg PO QPM Rx Instructions: Take 2 capsules in the evening. magnesium citrate 125 mg Capsule 250 mg PO DAILY Rx Instructions: Two capsules daily. Vivitrol 380 mg Suspension,Extended Rel Recon 380 mg IM QMONTH celecoxib [Celebrex] 200 mg Capsule 200 mg PO BEDTIME bisacodyl [Dulcolax (bisacodyl)] 5 mg Tablet,Delayed Release (Dr/Ec) 10 mg PO BEDTIME quetiapine [Seroquel] 50 mg tablet 50 mg PO BEDTIME Qty: 30 0RF Rx Instructions: 1 tab bedtime and 1 tab as needed for insomnia clonazepam 0.5 mg tablet 0.5 mg PO DAILY Qty: 6 0RF lisinopril 40 mg tablet 40 mg PO DAILY minoxidil 2.5 mg tablet 1.25 mg PO DAILY Rx Instructions: Take one half a tab daily. Discontinued gabapentin 300 mg Capsule 600 mg PO TID No Action calcium carbonate [Calcium 600] 600 mg calcium (1,500 mg) Tablet 1,200 mg PO DAILY multivitamin Tablet 1 tab PO BID gabapentin 600 mg Tablet 1,200 mg PO BEDTIME gabapentin 600 mg tablet 600 mg PO BID@0900,1400 omeprazole 20 mg capsule,delayed release(DR/EC) 20 mg PO DAILY@0630 topiramate 50 mg tablet 50 mg PO DAILY@1900 Rx Instructions: qpm, after dinner sennosides [Senna Lax] 8.6 mg Tablet 17.2 mg PO BEDTIME Qty: 90 0RF Hydrocil Instant Packet 1 packet PO DAILY Qty: 90 0RF nicotine 21 mg/24 hr Patch 24 Hour 21 mg transdermal DAILY Qty: 30 0RF Vivitrol 380 mg suspension,extended rel recon IM lisinopril 10 mg tablet 10 mg PO DAILY triamcinolone acetonide 0.1 % cream topical celecoxib 200 mg capsule 200 mg PO DAILY metformin 500 mg tablet extended release 24 hr 500 mg PO BID gabapentin 300 mg capsule PO divalproex 500 mg tablet,delayed release (DR/EC) PO BID prazosin 5 mg capsule 5 mg PO BEDTIME thiamine HCl (vitamin B1) 50 mg tablet PO folic acid 1 mg tablet 1 mg PO DAILY omeprazole 20 mg capsule,delayed release(DR/EC) 20 mg PO DAILY cyanocobalamin (vitamin B-12) 500 mcg tablet 500 mcg PO DAILY epinephrine 0.3 mg/0.3 mL auto-injector 1 mg IM DAILY minoxidil 2.5 mg tablet 1.25 mg PO DAILY cyclobenzaprine 10 mg tablet 10 mg PO BID PRN bisacodyl [Dulcolax (bisacodyl)] 5 mg tablet,delayed release (DR/EC) 10 mg PO BEDTIME Qty: 180 4RF Stand Alone Forms: Patient Portal Discharge page Print Language: Vietnamese
[2024-04-22 12:06] VITALS: BP 100/70; PULSE 68
--- NOTE | 2024-04-22 23:17 | HO.PHPPROGNO ---
Subjective Subjective Date of Service: 04/22/24 Reason For Visit: anxiety Interim History: Patient seen for follow-up. She was advocating for discharge, only that I've been here for so long . SHe denies any pressing issues or concerns. She has enjoyed groups, but admits she feels she is ready to leave, kind of getting repetitive, and says she has a lot of things to attend to (tasks, responsibilities) however she was agreeable to stay the 2 extra days to finish up her medication changes. She has been tolerating taper off Depakote. Mood is stable, okay , not quite euthymic, sometimes still feels a little low, but depression has improved, denies any recent SI, and says her anxiety is actually pretty good, not really a problem . She is sleeping well (and has not needed any prn meds, taking only Vraylar and prazosin for sleep, Depakote 250 taken earlier in the evening with topiramate 50 mg). Physically she has been feeling much better. She has had no further issues with dizziness, brain fog, weakness that she had been struggling with for past year. Energy has improved. Her last Na level on 04/14 was 139 (at the time VPA was 500 bid, gbt 600 tid, lisinopril 40, off hctz, topiramate). In interim, Depakote was decreased to 250 bid. Topiramate added back on last week. Vraylar was increased to 3 mg over the weekend. She reports she ran out of gabapentin last Sun or . On examination, there is a subtle lower lip tremor (may be TD) that is noted today (was not notable last week, prior to increase in Vraylar). For now will continue taper from VPA, and will check Na later in the week. If sodium conitnues to normalize, we may consider lowering Vraylar back to 1.5 mg (since TD wasn't noted at that dose). Patient was ambivalent about restarting gabapentin, she says she can not tell the difference being on or off the gabapenting (was at 600 mg TID). However we agree to start it back at 300 mg TID for now (to support medication changes, and we can always leave it as a prn for when anxiety occurs). Medication Compliance: Yes Side effects from medications: Yes (as noted, concerns for TD on Vraylar at 3 mg (also on monthly im Invega) ) Attending Groups: Yes Review of Systems Acute medical concerns: No Mental Status Exam Mental Status Exam Narrative: Alert, oriented, in no acute distress. Calm, cooperative. Mood less anxious, better , affect less constricted, moments of brightening. Speech normal. Thought process linear, coherent. Thought content related to stressors denies SI or HI. Denies AH or VH. Insight fair-good and judgment - fair-good. Diagnostics Vital Signs (24Hr): Vital Signs - 24 hr 04/22/24 12:06 Pulse Rate 68 Blood Pressure 100/70 BMI result Body Mass Index 43.7 Assessment & Plan Assessment & Plan (1) PTSD (post-traumatic stress disorder): Status: Acute Code(s): F43.10 - Post-traumatic stress disorder, unspecified (2) Alcohol use disorder, moderate, dependence: Status: Acute Code(s): F10.20 - Alcohol dependence, uncomplicated (3) Cannabis use with cannabis-induced disorder: Status: Acute Code(s): F12.99 - Cannabis use, unspecified with unspecified cannabis-induced disorder (4) Hyponatremia: Status: Acute Code(s): E87.1 - Hypo-osmolality and hyponatremia Plan Continue IOP Vitals today: BP 100/70; 68 bpm continue propranolol 20/10/10 mg (take before 5pm) continue prazosin 5 mg qhs restart gabapentin at 300 mg TID for now, may transition to prn continue topiramate 50 mg qhs tapering off Depakote (however if mood declines will consider low dose ER Depakote 500 if Na allows, then could lower Vraylar to 1.5 or off (d/t TD) alternatively could consider small dose of antidepressant (pt has h/o severe manic episodes years ago - however of note, patient was actively using etoh/drugs at the time) continue Vraylar 3 mg qhs (?TD) continue Invega Sustenna 234 mg IM q monthly continue Vivitrol 380 mg IM q monthly continue other regular medications: cyclobenzaprine 10 mg TID, celecoxib 200 mg, omeprazole 20 mg, minoxidil, docusate, bisacodyl, metformin 1000 mg qhs (non-compliant), lisinopril 40 mg qd, Vit D3, thiamine 100 mg, B supplements, bowel regime including various supplements vit B1, B9, B12, Mg, MV? Discontinued: Seroquel, HCTZ, clonazepam (brief trial) Recheck Na level, CBC, BMP tomorrow or Th continue to update VNA Lauren continue to monitor Patient educated on: diagnosis, medication risk/benefits and substance abuse Informed Consent: understands Reason for contiued partial hosp. stay Substantial Risk for: med/psych decompensation Certification I certify that the patient needs IOP Services for a minimum of 9 hours per week of therapeutic services. I certify the patient is experiencing symptoms of such intensity that they are unable to be safely treated in a less intensive setting and would otherwise require?admission to a more intensive level of care.? Total time managing care of this patient today _40___ minutes. Discharge Plan Discharge Attending provider: Mirtha Nagy Medications: New propranolol 10 mg tablet 10 - 20 mg PO TID Qty: 90 0RF cariprazine 1.5 mg capsule 1.5 mg PO BEDTIME Qty: 30 0RF topiramate 50 mg tablet 50 mg PO BEDTIME Qty: 30 0RF gabapentin 300 mg capsule 300 mg PO TID Qty: 90 0RF Rx Instructions: please cancel script for 600 mg tablets cariprazine 3 mg capsule 3 mg PO DAILY Qty: 30 0RF Continued prazosin 5 mg capsule 5 mg PO BEDTIME 30 Days Qty: 30 0RF docusate sodium 100 mg capsule 100 mg PO BID Patient Comments: Patient takes PRN. Rx Instructions: Patient takes PRN. folic acid 1 mg tablet 1 mg PO DAILY cyclobenzaprine 10 mg Tablet 10 mg PO TID Rx Instructions: Patient takes PRN. thiamine HCl (vitamin B1) 100 mg Tablet 100 mg PO DAILY magnesium citrate 125 mg Capsule 250 mg PO DAILY Rx Instructions: Two capsules daily. Vivitrol 380 mg Suspension,Extended Rel Recon 380 mg IM QMONTH celecoxib [Celebrex] 200 mg Capsule 200 mg PO BEDTIME cholecalciferol (vitamin D3) [Vitamin D3] 50 mcg (2,000 unit) tablet 100 mcg PO DAILY Qty: 60 0RF sennosides [Senna Lax] 8.6 mg Tablet 17.2 mg PO BEDTIME Qty: 90 0RF lisinopril 40 mg tablet 40 mg PO DAILY minoxidil 2.5 mg tablet 1.25 mg PO DAILY Rx Instructions: Take one half a tab daily. Discontinued gabapentin 300 mg Capsule 600 mg PO TID gabapentin 600 mg tablet 600 mg PO TID No Action multivitamin Tablet 1 tab PO BID omeprazole 20 mg capsule,delayed release(DR/EC) 20 mg PO DAILY@0630 Vivitrol 380 mg suspension,extended rel recon IM divalproex 500 mg tablet,delayed release (DR/EC) PO BID epinephrine 0.3 mg/0.3 mL auto-injector 1 mg IM DAILY PRN thiamine HCl (vitamin B1) 100 mg capsule 100 mg PO DAILY Stand Alone Forms: Patient Portal Discharge page Print Language: Amharic
--- NOTE | 2024-04-23 16:25 | HO.IOP ---
Atiya reported she was experiencing diarrhea this morning. Took breaks to use the bathroom in morning group. Pt was able to attend all of group one but then left PHP early at roughly 10:30 am. Pt reports she will plan to be here tomorrow.
[2024-04-24 11:09] VITALS: BP 100/62; PULSE 68
--- NOTE | 2024-04-24 11:51 | P.PNPSP_ITS ---
Subjective Subjective Date of Service: 04/24/24 Reason For Visit: anxiety Interim History: Patient seen for follow-up. She was advocating for discharge, only that I've been here for so long . SHe denies any pressing issues or concerns. She has enjoyed groups, but admits she feels she is ready to leave, kind of getting repetitive, and says she has a lot of things to attend to (tasks, responsibilities) however she was agreeable to stay the 2 extra days to finish up her medication changes. She has been tolerating taper off Depakote. Mood is stable, okay , not quite euthymic, sometimes still feels a little low, but depression has improved, denies any recent SI, and says her anxiety is actually pretty good, not really a problem . She is sleeping well (and has not needed any prn meds, taking only Vraylar and prazosin for sleep, Depakote 250 taken earlier in the evening with topiramate 50 mg). Physically she has been feeling much better. She has had no further issues with dizziness, brain fog, weakness that she had been struggling with for past year. Energy has improved. Her last Na level on 04/14 was 139 (at the time VPA was 500 bid, gbt 600 tid, lisinopril 40, off hctz, topiramate). In interim, Depakote was decreased to 250 bid. Topiramate added back on last week. Vraylar was increased to 3 mg over the weekend. She reports she ran out of gabapentin last Sun or . On examination, there is a subtle lower lip tremor (may be TD) that is noted today (was not notable last week, prior to increase in Vraylar). For now will continue taper from VPA, and will check Na later in the week. If sodium conitnues to normalize, we may consider lowering Vraylar back to 1.5 mg (since TD wasn't noted at that dose). Patient was ambivalent about restarting gabapentin, she says she can not tell the difference being on or off the gabapenting (was at 600 mg TID). However we agree to start it back at 300 mg TID for now (to support medication changes, and we can always leave it as a prn for when anxiety occurs). Review of Systems Review of Systems Unremarkable Mental Status Exam Mental Status Exam Narrative: Alert, oriented, in no acute distress. Calm, cooperative. Mood less anxious, better , affect less constricted, moments of brightening. Speech normal. Thought process linear, coherent. Thought content related to stressors denies SI or HI. Denies AH or VH. Insight fair-good and judgment - fair-good. Diagnostics Vital Signs (24Hr): BMI result Body Mass Index 43.7 Assessment & Plan Assessment & Plan (1) PTSD (post-traumatic stress disorder): Status: Acute Code(s): F43.10 - Post-traumatic stress disorder, unspecified (2) Alcohol use disorder, moderate, dependence: Status: Acute Code(s): F10.20 - Alcohol dependence, uncomplicated (3) Cannabis use with cannabis-induced disorder: Status: Acute Code(s): F12.99 - Cannabis use, unspecified with unspecified cannabis-induced disorder (4) Hyponatremia: Status: Acute Code(s): E87.1 - Hypo-osmolality and hyponatremia Plan Continue IOP Vitals today: BP 100/70; 68 bpm continue propranolol 20/10/10 mg (take before 5pm) continue prazosin 5 mg qhs restart gabapentin at 300 mg TID for now, may transition to prn continue topiramate 50 mg qhs tapering off Depakote (however if mood declines will consider low dose ER Depakote 500 if Na allows, then could lower Vraylar to 1.5 or off (d/t TD) alternatively could consider small dose of antidepressant (pt has h/o severe manic episodes years ago - however of note, patient was actively using etoh/drugs at the time) continue Vraylar 3 mg qhs (?TD) continue Invega Sustenna 234 mg IM q monthly continue Vivitrol 380 mg IM q monthly continue other regular medications: cyclobenzaprine 10 mg TID, celecoxib 200 mg, omeprazole 20 mg, minoxidil, docusate, bisacodyl, metformin 1000 mg qhs (non-compliant), lisinopril 40 mg qd, Vit D3, thiamine 100 mg, B supplements, bowel regime including various supplements vit B1, B9, B12, Mg, MV? Discontinued: Seroquel, HCTZ, clonazepam (brief trial) Recheck Na level, CBC, BMP tomorrow or Thurs continue to update VNA Lauren continue to monitor Certification I certify that partial hospital treatment is medically necessary due to the symptoms and problems resulting from the patient's mental illness and the failure to treat the patient at the partial hospital level of care would likely result in the patient requiring inpatient psychiatric care which could not be prevented at a less intensive level of care. Total time managing care of this patient today ____ minutes. Discharge Plan Discharge Attending provider: Mirtha Nagy Medications: New topiramate 50 mg tablet 50 mg PO BEDTIME Qty: 30 0RF cariprazine 3 mg capsule 3 mg PO DAILY Qty: 30 0RF Continued prazosin 5 mg capsule 5 mg PO BEDTIME 30 Days Qty: 30 0RF docusate sodium 100 mg capsule 100 mg PO BID Patient Comments: Patient takes PRN. Rx Instructions: Patient takes PRN. folic acid 1 mg tablet 1 mg PO DAILY cyclobenzaprine 10 mg Tablet 10 mg PO TID Rx Instructions: Patient takes PRN. thiamine HCl (vitamin B1) 100 mg Tablet 100 mg PO DAILY magnesium citrate 125 mg Capsule 250 mg PO DAILY Rx Instructions: Two capsules daily. Vivitrol 380 mg Suspension,Extended Rel Recon 380 mg IM QMONTH celecoxib [Celebrex] 200 mg Capsule 200 mg PO BEDTIME cholecalciferol (vitamin D3) [Vitamin D3] 50 mcg (2,000 unit) tablet 100 mcg PO DAILY Qty: 60 0RF multivitamin Tablet 1 tab PO BID omeprazole 20 mg capsule,delayed release(DR/EC) 20 mg PO DAILY@0630 sennosides [Senna Lax] 8.6 mg Tablet 17.2 mg PO BEDTIME Qty: 90 0RF epinephrine 0.3 mg/0.3 mL auto-injector 1 mg IM DAILY PRN lisinopril 40 mg tablet 40 mg PO DAILY minoxidil 2.5 mg tablet 1.25 mg PO DAILY Rx Instructions: Take one half a tab daily. Changed propranolol 10 mg tablet See Rx Instructions .ROUTE .COMPLEX Qty: 120 0RF Rx Instructions: take 2 tablets po daily in AM, take one tablet po daily at noon, take one tablet po daily at 5pm gabapentin 300 mg capsule 300 mg PO TID PRN (Reason: Anxiety, pain) Qty: 90 0RF Discontinued gabapentin 300 mg Capsule 600 mg PO TID gabapentin 600 mg tablet 600 mg PO TID Vivitrol 380 mg suspension,extended rel recon IM divalproex 500 mg tablet,delayed release (DR/EC) PO BID thiamine HCl (vitamin B1) 100 mg capsule 100 mg PO DAILY Stand Alone Forms: Patient Portal Discharge page Patient Education: Hyponatremia (ED), Bipolar Disorder (DC), Anemia (DC) Print Language: Chinese
== END 2024-04-24 23:59 | disposition home or self-care (01) ==
LOC: HO.IOP 09:00
PROVIDERS: Visit Provider Psychiatry & Neurology Psychiatry
DX: F43.10 Post-traumatic stress disorder, unspecified (principal); F10.20 Alcohol dependence, uncomplicated; F12.99 Cannabis use, unspecified with unspecified cannabis-induced disorder; E87.1 Hypo-osmolality and hyponatremia; Z79.899 Other long term (current) drug therapy
CPT/HCPCS: 90791; H0015; S9480

== ENCOUNTER 2024-05-13 09:00 | Outpatient (AMB) | payer OTHER, SELFPAY ==
--- NOTE | 2024-05-13 09:13 | MHC.OFFVIS ---
Vital Signs 05/13/24 09:15 Height 5 ft 2 in Weight 219 lb 2.232 oz BMI 40.1 BP 110/62 Blood Pressure Location Lt brachial Position Sitting Pulse 70 Pulse Source Monitor Intake Visit Reasons: [employer]/Dr. Kim/Tachycardia/ pre-op knee surgery Bar Turner Required: No Accompanied by: Self / Same As Patient Allergies hydromorphone Allergy (Intermediate, Verified 04/17/24 15:24) Rash acyclovir Allergy (Unknown, Verified 04/17/24 15:24) Unknown insect venom [INSECT BITES] Allergy (Unknown, Verified 04/17/24 15:24) Difficulty Breathing sulfamethoxazole [From BACTRIM] Allergy (Unknown, Verified 04/17/24 15:24) Anaphylaxis trimethoprim [From BACTRIM] Allergy (Unknown, Verified 04/17/24 15:24) Anaphylaxis Penicillins [PCN] Allergy (Verified 04/17/24 15:24) Rash Medication List - Last Reconciled 05/13/24 by Luan Conde MD bisacodyl (Dulcolax (bisacodyl)) 10 mg (2 x 5 mg) PO BEDTIME cariprazine 3 mg PO DAILY celecoxib (Celebrex) 200 mg PO BEDTIME cholecalciferol (vitamin D3) (Vitamin D3) 100 mcg (2 x 50 mcg (2,000 unit)) PO DAILY cyclobenzaprine 10 mg PO TID docusate sodium 100 mg PO BID epinephrine 1 mg IM DAILY PRN folic acid 1 mg PO DAILY gabapentin 300 mg PO TID PRN lisinopril 40 mg PO DAILY magnesium citrate 250 mg PO DAILY minoxidil 1.25 mg PO DAILY multivitamin 1 tab PO BID naltrexone microspheres ER (Vivitrol) 380 mg IM QMONTH omeprazole 20 mg PO DAILY@0630 prazosin 5 mg PO BEDTIME 30 days propranolol take 2 tablets po daily in AM, take one tablet po daily at noon, take one tablet po daily at 5pm sennosides (Senna Lax) 17.2 mg (2 x 8.6 mg) PO BEDTIME thiamine HCl (vitamin B1) 100 mg PO DAILY topiramate 50 mg PO BEDTIME HPI Comments Details: The patient is a 48-year-old female presenting with palpitations triggered by anxiety. She experienced two notable episodes of accelerated heart rate, both associated with significant anxiety and family altercations. These episodes led to one hospitalization where her heart rate reached 120 beats per minute. After initiation on propranolol, the patient reports cessation of these cardiac events. Additionally, she was evaluated for low sodium levels, attributing the cause to her antihypertensive medication, hydrochlorothiazide. Her background includes a history of hypertension and a prior gastric bypass in 2008 that resulted in significant weight loss, though she has since regained some weight. Notably, the patient denies any prior cardiac issues or previous instances of chest pain or dyspnea. The patient's anxiety appears to contribute significantly to her cardiovascular symptoms, with a history of cocaine misuse dating back to 2018, now in remission. - No history of myocardial infarction - No prior stents or cardiac interventions - Essential Hypertension - Tachycardia related to anxiety. Patient was informed and verbally consented to the use of an ambient scribe for clinic note documentation during this visit. [facility] Medical History (Updated 05/13/24 @ 11:55 by Luan Conde MD) Hypertension Morbid obesity with BMI of 40.0-44.9, adult Bipolar I disorder, most recent episode (or current) depressed Hx of migraines Osteoarthritis of lower back Lumbar herniated disc HTN (hypertension) Diabetes Substance dependence, daily use Lumbar herniated disc Trigger finger Carpal tunnel syndrome Bowel obstruction Abdominal wall ulcer LGSIL on Pap smear of cervix PTSD (post-traumatic stress disorder) Cocaine abuse Baclofen overdose Bipolar 1 disorder, manic, moderate Alcohol abuse Substance abuse Psychiatric diagnosis Hypertension Surgical History History of total knee replacement (TKR) H/O colonoscopy H/O gastric sleeve History of ankle surgery History of carpal tunnel surgery of right wrist Total knee replacement status H/O removal of cyst Gastric bypass status for obesity Hx of tubal ligation History of stress incontinence procedure using tension free vaginal tape History of knee replacement procedure of right knee History of cholecystectomy History of ankle surgery Family History Family/Other Breast cancer Maternal Aunt Cervical cancer Mother Stomach cancer Social History Household Members: None Household Members Other:: lives by self Housing: Apartment Do you presently have visiting nurse or other home services: Yes ([facility]) Unable to assess alcohol history related to: Unknown Alcohol intake: former Comment: DC 04/24/24 Patient Tobacco Use Status: Current everyday Tobacco user Tobacco use type: Cigarette Cigarette Packs Per Day: 0.5 Cigarettes Per Day: 10.0 Years Smoked: 34 e-Cigarette/Vaping Use: Currently Using Second Hand Smoke Exposure: No Substance Use Type: Marijuana Advance Directives Date on File: 03/18/21 service: No 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al status: unemployed 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 handed/ [employer] Sexual orientation: Bisexual Female Reproductive History Menstrual Age of Menarche: 16 Review of Systems Const Denies chills, Denies fatigue, Denies fever(s), Denies frequent falls, Denies weakness, Denies weight gain and Denies weight loss ENT Denies dizziness Card Denies chest pain, Denies leg edema, Denies lightheadedness, Denies palpitations, Denies dyspnea, Denies dyspnea on exertion and Denies orthopnea Resp Denies cough, Denies dyspnea and Denies dyspnea on exertion GI Denies bloating and Denies change in bowel habits Musc Denies muscle weakness, Denies numbness and Denies tingling Neuro Denies dizziness, Denies frequent falls, Denies numbness, Denies tingling and Denies weakness Endo Denies fatigue and Denies palpitations Physical Exam Vital Signs: Last Vital Signs Pulse 70 05/13/24 09:15 BP 110/62 05/13/24 09:15 BMI result Body Mass Index 40.1 Const General: comfortable and no acute distress Orientation/consciousness: patient oriented x3 HEENT Other: Unremarkable Head: Yes normal to inspection Neck Neck: Yes normal visual inspection Chest Chest palpation & inspection: normal inspection of the chest Resp Auscultation: clear to auscultation bilaterally Cardio Palpation: normal PMI Heart sounds: S1 normal heart sound present, S2 normal heart sound present, no gallops, no murmurs and no rubs GI Palpation (GI): Soft to palpation Back/Spine/Pelvis Other: unremarkable Skin General skin exam: no rashes or lesions noted Neuro General: patient oriented x3 Extrem General: Yes normal to inspection Psych Mental Status: mental status grossly normal Office Procedures EKG Details: EKG with underlying sinus rhythm at 70/Min; no significant ST-T changes; [place] [id number], Complete Assessment & Plan Assessment & Plan (1) Heart palpitations: Code(s): R00.2 - Palpitations Category: Medical (2) Preoperative cardiovascular examination: Code(s): Z01.810 - Encounter for preprocedural cardiovascular examination Category: Medical Plan Per [facility] ER notes, EKG had shown sinus tachycardia. Unremarkable high sensitivity troponin. CTA reviewed from [facility]. Description of dilated main pulmonary artery and mildly enlarged right heart, possible pulmonary hypertension. No pericardial effusion or coronary artery calcification. Overall, suspect sinus tachycardia possibly related to anxiety. In today's EKG, normal sinus rhythm without any clear abnormalities. As the beta-blockers seem to be helping her, may continue. Because of the CTA findings as above, we will get an echocardiogram for further evaluation. Right-sided findings could be related to obesity. Unless any significant findings on the echocardiogram, she will be able to proceed with planned knee surgery. If any recurring palpitations of concern, consider Holter monitor. Orders: Orders CA echo transthoracic complete Today R00.2 - Palpitations Patient Instructions: - Continue taking propranolol as prescribed. - Monitor for symptoms of palpitations and report any recurrence. - Follow up with scheduled echocardiogram. - Monitor sodium levels, especially when using antihypertensive medication. - Await instructions for a heart monitor for future use. - Prepare for knee surgery on May 27, ensuring all cardiac assessments are completed. Coding Level of Care Code New Pt Level 3 (16946) Diagnoses Heart palpitations R00.2 Preoperative cardiovascular examination Z01.810 CPT Codes EKG - CPT: 90294-[id number], Complete ([id number])
[2024-05-13 09:15] VITALS: BP 110/62; PULSE 70; BMI 40.1
== END 2024-05-13 09:46 | disposition home or self-care (01) ==
LOC: HO.HCS 09:00
PROVIDERS: PCP General Practice; Visit Provider Internal Medicine
DX: R00.2 Palpitations (principal); Z01.810 Encounter for preprocedural cardiovascular examination
CPT/HCPCS: 93010; 99213

== ENCOUNTER → 2024-05-13 09:00 | Outpatient (BNVA) | payer OTHER, SELFPAY | PROVIDERS: PCP General Practice; Visit Provider Internal Medicine | DX: Z01.810 Encounter for preprocedural cardiovascular examination (principal); R00.2 Palpitations | CPT/HCPCS: 93005; 99212 ==

== ENCOUNTER → 2024-05-19 14:25 | Outpatient (REF) | payer OTHER, SELFPAY ==
--- NOTE | 2024-05-19 14:27 | CA_ITS ---
Transthoracic Echocardiogram Patient (Last, First, Middle): Atiya Dotson, Gender: Female Date of : 1975 Age: 48 Procedure Date: 05/19/2024 Procedure Type: Transthoracic Echocardiogram Location: OP Height: 157.48 cm Weight: 99.34 kg BSA: 1.99 m2 Heart Rate: bpm BP: 110 / 62 mmHg Tab Cutting Machine Operator: HALIE Referring MD: Luan Conde MD Symptoms: R00.2 - Palpitations Study Quality: Adequate ECG Rhythm: Sinus Conclusions: - The left ventricular systolic function is normal. The calculated ejection fraction is 61% by biplane method. - No obvious valvular pathology seen on this study. Findings Left Ventricle Normal left ventricular cavity size. There is normal left ventricular wall thickness. The left ventricular systolic function is normal. The calculated ejection fraction is 61% by biplane method. There is no evidence of regional wall motion abnormalities. Diastolic function is normal for age. Right Ventricle Normal right ventricular cavity size, wall thickness, and systolic function. Atria Both atria are normal in size. Aortic Valve The aortic valve structure and function is likely normal. There is no aortic valve stenosis. There is no aortic valve regurgitation. Mitral Valve The mitral valve appears normal. There is mild mitral annular calcification. There is no mitral valve regurgitation. There is no mitral valve stenosis. Pulmonic Valve The pulmonic valve is likely normal. Tricuspid Valve There is trace tricuspid valve regurgitation. There is no evidence of pulmonary hypertension. Great Vessels The asc aorta is normal in size. Venous The inferior vena cava is mildly dilated and collapses greater than 50% with inspiration. Pericardium/Pleural There is no evidence of pericardial effusion. Prior Study Comparison No prior study available for comparison. Recommendations, Care & Conclusions No obvious valvular pathology seen on this study. Measurements 2D Linear Measurements IVSd: 0.87 0.6-0.9/0.6-1.0 cm LVIDd: 4.73 3.9-5.3/4.2-5.9 cm LVIDd Index: 2.38 2.4-3.2/2.2-3.1 cm/m2 LVIDs: 2.92 2.0-3.6 cm LVPWd: 0.84 0.7-1.1 cm LA Diam: 3.30 2.7-3.8/3.0-4.0 cm LAIDs Index: 1.66 1.5-2.3 cm/m2 LV Mass: 168.36 67-162/88-224 g LV Mass Index: 84.61 43-95/49-115 g/m2 LVOT Diam: 2.00 3.0+(-)1.3 cm 2D Systolic Function EF 4C: 53.90 >55% EF 2C: 68.10 >55% EF BiP: 61.10 >55% Mitral Valve MV Pk E: 0.67 MV PK A: 0.60 MV Decel Time: 296.00 E/A: 1.10 E'Lateral: 8.59 E'Medial: 6.85 E/E' Med: 9.80 E/E' Lat: 7.80 PHT: 87.00 MVA PHT: 2.53 Decel [place]: 2.26 Aortic Valve AoV Pk Hayes: 1.99 AoV Mn Hayes: 1.27 AoV VTI: 0.43 AoV Pk Grad: 16.00 Aov Mn Grad: 7.00 GÉNESIS Cont.VTI: 1.95 LVOT LVOT Pk Hayes: 1.18 LVOT Mn Hayes: 0.86 LVOT VTI: 0.27 LVOT Pk Grad: 6.00 LVOT Mn Grad: 3.00 LVOT Diam: 2.00 LVOT Area: 3.14 Diastolic Function MV Pk E: 0.67 MV Pk A: 0.60 E/A: 1.10 E'Medial: 6.85 E/E' Med: 9.80 E' Laterial: 8.59 E/E' Lat: 7.80 Right Ventricle TAPSE (mm): 22.80 TVS' Hayes: 11.80 Tricuspid Valve TR Pk Hayes: 2.08 TR Pk Grad: 17.00 RA Press: 8.00 RVSP: 25.00 Great Vessels Aorta Sinus of Valsalva: 3.12 2.0-3.5 cm Ao Asc: 3.00 2.1-3.4 cm Updated in Other Vendor System with Status of Final Luan Conde MD electronically signed on 05/20/2024 10:51:49 AM with status of Final
--- OUTSIDE RECORDS SUMMARY | 2024-05-19 16:18 | XMS_ITS | Encounter Summary ---
Author Organization [facility] Address [address] [place] [address] Care Team Providers Care Wastewater Supervisor Name Role Phone Darya Hamilton MD Primary Care Provider Ronak neumann [facility], Pcp Primary Care Provider Unavailabl e Darya Hamilton MD Primary Care Provider Lewis Birmingham MD Primary Care Provider Un available Dipesh Kern MD Primary Care Provide r Unavailable Becca Hinkle MD Primary Care Provider Unavailable Reason for Visit * Reason Onset Date Comments refill request 03/18/2012 Encounter Details Date Type Department Care Team Description 03/18/2012 Refill Physiatry - [address] [address] Lucia Contreras PA-C refill request Social History Tobacco Use Types Packs/Day Years Used Date Smoking Tobacco: Every Day Cigarettes 1 Smokeless Tobacco: Never Comments:started smoking at 14 Alcohol Use Standard Drinks/Week Comments Yes 0 (1 standard drink = 0.6 oz pur e alcohol) weekends Sex Assigned at Date Recorded Not on file documented as of this encounter Miscellaneous Notes * Telephone Encounter - Evelia Mckeon - 03/18/2012 3:27 PM EST (THE MEDICATION REQUESTED IS ON THE MED LIST ABOVE) All of the medications requested were on the CURRENT MEDS list Did you check the Pharmacy information above?: NO Patient wants: 30 -day supply Patient would like script to be: 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 NO Indicate how soon the patient needs the script: OK FOR NEXT DAY Patients current insurance carrier is: [place] Product Type: MEDICARE [id number] documented in this encounter Plan of Treatment Not on file documented as of this encounter Visit Diagnoses Not on filedocumented in this encounter Care Teams Wastewater Supervisor Relationship Specialty Start Date End Date Darya Hamilton MD PCP - General 06/30/10 03/15/15 [facility], Pcp PCP - General Internal Medicine 03/16/15 06/20/16 Darya Hamilton MD PCP - General Internal Medicine 06/21/16 11/12/16 Lewis Espino MD PCP - General Internal Medicine 11/13/16 Dipesh Kern MD PCP - General Internal Medicine 10/15/18 Becca Hinkle MD PCP - General Internal Medicine 03/23/21 documented as of this encounter
--- OUTSIDE RECORDS SUMMARY | 2024-05-19 16:18 | XMS_ITS | Encounter Summary ---
Author Organization [employer] Address [address] [facility] [address] [place] [address] Care Team Providers Care Gut Sorter Name Role Phone Maddie Kim MD Primary Care Provider [phone] Encounter Details Date Type Department Care Team ([facility] st Contact Info) Description 01/02/2024 Orders Only [facility] MEDICINE [address] [place], [place] [phone] Maddie Kim MD [address] [place], [place] [phone] Social History Tobacco Use Types Packs/Day Years [...] 07/01/2024 11:30 AM EDT Telemedicine [facility] MED[facility]INE [address] [place] [address] Maddie Kim MD [address] [place] [address] documented as of this encounter Visit Diagnoses Not on filedocumented in this encounter Additional Health Concerns Assessment Noted Time PHQ-9 Depression Total Score: 3 06/15/19 24 11:48 AM EDT documented as of this encounter Care Teams Gut Sorter Relationship Specialty Start Date End Date Maddie Kim MD [address] [place] [address] PCP - General Family Medicine 07/12/20 Willie Gage 01/17/22 documented as of this encounter
--- OUTSIDE RECORDS SUMMARY | 2024-05-19 16:18 | XMS_ITS | Encounter Summary ---
Author Organization [employer] Address [address] [facility] [address] [place] [address] Care Team Providers Care Violent Crimes Detective Name Role Phone Maddie Kim MD Primary Care Provider [phone] Reason for Visit * Reason Onset Date Comments Nutrition Medication Question 05/30/2023 Encounter Details Date Type Department Care Team ([facility] Contact Info) Description 05/30/2023 Telephone [facility] MEDICINE [address] [place], [place] [phone] Maddie Kim MD [address] [place], [place] [phone] Nutrition Medication Question Social History Tobacco Use [...] 07/01/2024 11:30 AM EDT Telemedicine [facility] MEDICINE [address] [place] [address] Maddie Kim MD [address] [place] [address] documented as of this encounter Visit Diagnoses Not on filedocumented in this encounter Additional Health Concerns Assessment Noted Time PHQ-9 Depression Total Score: 0 05/30/19 23 3:26 PM EDT documented as of this encounter Care Teams Violent Crimes Detective Relationship Specialty Start Date End Date Maddie Kim MD [address] [place] [id number] PCP - General Family Medicine 07/12/20 Willie Gage 01/17/22 documented as of this encounter
--- OUTSIDE RECORDS SUMMARY | 2024-05-19 16:18 | XMS_ITS | Encounter Summary ---
Author Organization [facility] Address [address] [place] [address] Care Team Providers Care Emt I/99 Name Role Phone Darya Hamilton MD Primary Care Provider Unanile neumann [facility], Pcp Primary Care Provider Unavailabl e Darya Hamilton MD Primary Care Provider Unava Lewis Galvan MD Primary Care Provider Un available Dipesh Kern MD Primary Care Provide r Unavailable Becca Hinkle MD Primary Care Provider Unavailable Reason for Visit * Reason Onset Date Comments Medication 09/11/2013 Encounter Details Date Type Department Care Team Description 09/11/2013 Telephone Adult Medicine [address] [address] Darya Hamilton MD Medication Social History Tobacco Use Types Packs/Day Years Used Date Smoking Tobacco: Every Day Cigarettes 1 Smokeless Tobacco: Never Comments:started smoking at 14 Alcohol Use Standard Drinks/Week Comments No 0 (1 standard drink = 0.6 oz pur e alcohol) Sex Assigned at Date Recorded Not on file documented as of this encounter Miscellaneous Notes * Telephone Encounter - Nataliia Amado M.A. - 09/11/2013 4:03 PM EDT Patient notified * Telephone Encounter - Darya Hamilton MD - 09/11/2013 3:52 PM EDT Pls tell her I will give her 15 tabs of fioricet to use sparingly; use Imitrex as needed for migraine. In future, lost Rxs will not be replaced. * Telephone Encounter - Angeline Aguilar M.A. - 09/11/2013 1:48 PM EDT Pt states that she does not know what happened to her pills, they were in her purse and now they are gone. Would you consider another refill? * Telephone Encounter - Karol Cota - 09/11/2013 12:32 PM EDT Who is calling? The patient Name of the medication ?: [id number] 50-325-40 MG OR TABS (FIORICET, ESGIC) per tablet What is the specific problem or interaction? The pt would like a call back from nursing regarding her lost meds If the patient is having a problem with taking the med - how long has the problem been going on? documented in this encounter Plan of Treatment Not on file documented as of this encounter Visit Diagnoses Not on filedocumented in this encounter Care Teams Emt I/99 Relationship Specialty Start Date End Date Darya Hamilton MD PCP - General 06/30/10 03/15/15 [facility], Pcp PCP - General Internal Medicine 03/16/15 06/20/16 Darya Hamilton MD PCP - General Internal Medicine 06/21/16 11/12/16 Lewis Espino MD PCP - General Internal Medicine 11/13/16 Dipesh Kern MD PCP - General Internal Medicine 10/15/18 Becca Hinkle MD PCP - General Internal Medicine 03/23/21 documented as of this encounter
--- OUTSIDE RECORDS SUMMARY | 2024-05-19 16:18 | XMS_ITS | Encounter Summary ---
Author Organization [employer] Address [address] [facility] [address] [place] [address] Care Team Providers Care Kai [place] Name Role Phone Maddie Kim MD Primary Care Provider [phone] Encounter Details Date Type Department Care Team ([facility] st Contact Info) Description 02/22/2024 Orders Only [facility] MEDICINE [address] [place], [place] [phone] Maddie Kim MD [address] [place], [place] [phone] Social History Tobacco Use Types Packs/Day Years [...] Info) Description 07/01/2024 11:30 AM EDT Telemedicine [facility] MED[facility]INE [address] [place] [address] Maddie Kim MD [address] [place] [address] documented as of this encounter Visit Diagnoses Not on filedocumented in this encounter Additional Health Concerns Assessment Noted Time PHQ-9 Depression Total Score: 3 06/15/19 24 11:48 AM EDT documented as of this encounter Care Teams Kai [place] Relationship Specialty Start Date End Date Maddie Kim MD [address] [place] [address] PCP - General Family Medicine 07/12/20 Willie Gage 01/17/22 documented as of this encounter
--- OUTSIDE RECORDS SUMMARY | 2024-05-19 16:18 | XMS_ITS | Clinical Summary ---
Author Organization Unknown Care Team Providers Care Charge Accounts Audit Clerk Name Role Phone MARLON AHUMADA, JEAN-PIERRE Unavailable Unavailable ENRIQUE WEINSTEINW, WINNIE Unavailable Unavailable KATINA RN, ANASTACIA Unavailable Unavailable SMILEY RN, JENNI Unavailable Unavailable JAVIER RN, GABBY Unavailable Unavaila ble Payers Payer Name Policy Type Policy Number Effective Date Expira tion Date [facility] [id number] [place] [id number] MEDICARE - [facility] [place] - PD [id number] Problems Condition Name Condition Details Condition Category [...] 2020-02 00:00: 00 03-07 00:00 :00 No [id number] 10 mg 3 TIMES DAILY 10 mg 3 TIMES DAILY (route: oral) Med Classific ation: Locomotor System buprenorphi ne 4 mg-naloxone 1 mg sublingual film 2020-02 00:00: 00 04-05 00:00 :00 No [id number] Per instruc tions NEEDED Per instructio ns NEEDED (route: sublingual ) Med Classific ation: Chemical Dependenc y, Agents to Treat divalproex 250 mg tablet,kassandra yed release 2020-02 00:00: 00 04-05 23:59 :00 No [id number] 250 mg DAILY 250 mg DAILY (route: oral) Med Classific ation: Central Nervous System Agents divalproex ER 500 mg tablet,exte nded release 24 hr 2020-02 00:00: 00 04-05 00:00 :00 No [id number] 500 mg 2 TIMES DAILY 500 mg 2 TIMES DAILY (route: oral) Med Classific ation: Central Nervous System Agents ferrous sulfate 325 mg (65 mg iron) tablet 2020-02 00:00: 00 04-05 00:00 :00 No [id number] 1 tablet DAILY 1 tablet DAILY (route: oral) Med Classific ation: Electroly te Balance-N utritiona l Products Invega Sustenna 156 mg/mL intramuscul ar syringe 2020-02 00:00: 00 05-11 23:59 :00 No [id number] 156 mg MONTHLY 156 mg MONTHLY (route: intramuscu lar) Med Classific ation: Central Nervous System Agents levothyroxi ne 25 mcg tablet 2020-02 00:00: 00 03-05 23:59 :00 No [id number] 25 mcg DAILY 25 mcg DAILY (route: oral) Med Classific ation: Endocrine lisinopril 5 mg tablet 2020-02 00:00: 00 11-21 23:59 :00 No [id number] 5 mg DAILY 5 mg DAILY (route: oral) Med Classific ation: Cardiovas cular Therapy Agents nicotine (polacrilex ) 4 mg gum 2020-02 00:00: 00 09-12 23:59 :00 No [id number] 4 gum NEEDED 4 gum NEEDED (route: buccal) Med Classific ation: Chemical Dependenc y, Agents to Treat nicotine 21mg/24hr-1 4mg/24hr-7m g/24hr daily transderm patches,seq uentl 2020-02 00:00: 00 09-12 23:59 :00 No [id number] 21 patch NEEDED 21 patch NEEDED (route: transderma l) Med Classific ation: Chemical Dependenc y, Agents to Treat nystatin 500,000 unit tablet 2020-02 00:00: 00 04-05 00:00 :00 No [id number] In unit 4 TIMES DAILY [id number] In unit 4 TIMES DAILY (route: oral) Med Classific ation: Anti-Infe ctive Agents omeprazole 20 mg tablet,kassandra yed release 2020-02 00:00: 00 Yes [id number] 20 mg DAILY 20 mg DAILY (route: oral) Med Classific ation: Gastroint estinal Therapy Agents prazosin 5 mg capsule 2020-02 00:00: 00 02-14 23:59 :00 No [id number] 5 capsule BEDTIME 5 capsule BEDTIME (route: oral) Med Classific ation: Cardiovas cular Therapy Agents trazodone 50 mg tablet 2020-02 00:00: 00 01-17 23:59 :00 No [id number] 50 mg NEEDED 50 mg NEEDED (route: oral) Med Classific ation: Central Nervous System Agents albuterol sulfate HFA 90 mcg/actuati on aerosol inhaler 04-05 00:00: 00 Yes [id number] 2 puff NEEDED 2 puff NEEDED (route: inhalation ) Med Classific ation: Respirato ry Therapy Agents Aspercreme with Aloe 10 % topical 04-05 00:00: 00 09-12 23:59 :00 No [id number] Per instruc tions NEEDED Per instructio ns NEEDED (route: topical) Med Classific ation: Dermatolo gical cyclobenzap rine 5 mg tablet 04-05 00:00: 00 01-17 23:59 :00 No [id number] 5 mg NEEDED 5 mg NEEDED (route: oral) Med Classific ation: Locomotor System Depakote 500 mg tablet,kassandra yed release 04-05 00:00: 00 05-06 23:59 :00 No [id number] 1000 mg 2 TIMES DAILY 1000 mg 2 TIMES DAILY (route: oral) Med Classific ation: Central Nervous System Agents diphenhydra mine 25 mg capsule 04-05 00:00: 00 06-01 23:59 :00 No [id number] 50 mg NEEDED 50 mg NEEDED (route: oral) Med Classific ation: Respirato ry Therapy Agents hydroxyzine HCl 50 mg tablet 2-15 00:00: 00 06-01 23:59 :00 No [id number] 50 mg 3 TIMES DAILY 50 mg 3 TIMES DAILY (route: oral) Med Classific ation: Central Nervous System Agents naltrexone 50 mg tablet 2-15 00:00: 00 06-01 23:59 :00 No [id number] 50 mg DAILY 50 mg DAILY (route: oral) Med Classific ation: Antidotes and other Reversal Agents Narcan 4 mg/actuatio n nasal spray 2-15 00:00: 00 06-01 23:59 :00 No [id number] Per instruc tions NEEDED Per instructio ns NEEDED (route: nasal) Med Classific ation: Antidotes and other Reversal Agents pyridoxine (vitamin B6) 25 mg tablet 2-15 00:00: 00 06-01 23:59 :00 No [id number] 25 mg DAILY 25 mg DAILY (route: oral) Med Classific ation: Electroly te Balance-N utritiona l Products Invega Sustenna 234 mg/1.5 mL intramuscul ar syringe 3-24 00:00: 00 Yes [id number] Per instruc tions MONTHLY Per instructio ns MONTHLY (route: intramuscu lar) Med Classific ation: Central Nervous System Agents Invega Sustenna 234 mg/1.5 mL intramuscul ar syringe 8-14 00:00: 00 11-30 23:59 :00 No [id number] 234 mg MONTHLY 234 mg MONTHLY (route: intramuscu lar) Med Classific ation: Central Nervous System Agents Celebrex 200 mg capsule 2021-02 0-26 00:00: 00 03-20 23:59 :00 No [id number] 200 mg 2 TIMES DAILY 200 mg 2 TIMES DAILY (route: oral) Alternate Route: NONE. Med Classific ation: Analgesic , Anti-infl ammatory or Antipyret ic Celebrex 200 mg capsule 1-30 00:00: 00 01-10 23:59 :00 No [id number] 200 mg DAILY 200 mg DAILY (route: oral) Alternate Route: NONE. Med Classific ation: Analgesic , Anti-infl ammatory or Antipyret ic docusate sodium 100 mg capsule 30 00:00: 00 01-29 23:59 :00 No [id number] 1 capsule 2 TIMES DAILY 1 capsule 2 TIMES DAILY (route: oral) Alternate Route: NONE. Med Classific ation: Gastroint estinal Therapy Agents Eliquis 2.5 mg tablet 30 00:00: 00 09-12 23:59 :00 No [id number] 1 tablet 2 TIMES DAILY 1 tablet 2 TIMES DAILY (route: oral) Med Classific ation: Hematolog ical Agents oxycodone 5 mg tablet 03-20 00:00: 00 04-18 23:59 :00 No [id number] Per instruc tions DIRECTED Per instructio ns DIRECTED (route: oral) Alternate Route: NONE. Med Classific ation: Analgesic , Anti-infl ammatory or Antipyret ic tramadol 50 mg tablet 03-20 00:00: 00 04-18 23:59 :00 No [id number] Per instruc tions DIRECTED Per instructio ns DIRECTED (route: oral) Med Classific ation: Analgesic , Anti-infl ammatory or Antipyret ic gabapentin 300 mg capsule 3-29 00:00: 00 01-10 23:59 :00 No [id number] 1 capsule 3 TIMES DAILY 1 capsule 3 TIMES DAILY (route: oral) Med Classific ation: Central Nervous System Agents cyclobenzap rine 5 mg tablet 7-27 00:00: 00 01-10 23:59 :00 No [id number] 1 tablet 3 TIMES DAILY 1 tablet 3 TIMES DAILY (route: oral) Med Classific ation: Locomotor System baclofen 10 mg tablet 2022-02 1-24 00:00: 00 03-30 23:59 :00 No [id number] 1 tablet DIRECTED 1 tablet DIRECTED (route: oral) Med Classific ation: Locomotor System docusate sodium 100 mg capsule 2022-02 00:00: 00 Yes [id number] 1 capsule NEEDED 1 capsule NEEDED (route: oral) Med Classific ation: Gastroint estinal Therapy Agents acetaminoph en 300 mg-codeine 30 mg tablet 2-09 00:00: 00 05-15 23:59 :00 No [id number] 1 tablet 3 TIMES DAILY 1 tablet 3 TIMES DAILY (route: oral) Med Classific ation: Analgesic , Anti-infl ammatory or Antipyret ic Paxlovid 300 mg (150 mg x 2)-100 mg tablets in a dose pack 03-30 00:00: 00 04-03 23:59 :00 No [id number] 3 tablet 2 TIMES DAILY 3 tablet 2 TIMES DAILY (route: oral) Med Classific ation: Anti-Infe ctive Agents tizanidine 4 mg tablet 03-30 00:00: 00 01-03 23:59 :00 No [id number] 1 tablet 3 TIMES DAILY 1 tablet 3 TIMES DAILY (route: oral) Med Classific ation: Locomotor System Depakote 500 mg tablet,kassandra yed release 3- 00:00: 00 03-31 23:59 :00 No [id number] 1000 mg 2 TIMES DAILY 1000 mg 2 TIMES DAILY (route: oral) Med Classific ation: Central Nervous System Agents multivitami n tablet 06-03 00:00: 00 04-21 23:59 :00 No [id number] 1 tablet DIRECTED 1 tablet DIRECTED (route: oral) Med Classific ation: Electroly te Balance-N utritiona l Products gabapentin 300 mg capsule 07-10 00:00: 00 04-24 23:59 :00 No [id number] 2 capsule 3 TIMES DAILY 2 capsule 3 TIMES DAILY (route: oral) Med Classific ation: Central Nervous System Agents paliperidon e ER 1.5 mg tablet,exte nded release 24 hr 07-10 00:00: 00 11-22 23:59 :00 No [id number] 1 tablet DAILY 1 tablet DAILY (route: [...] citrate 125 mg capsule 09-08 00:00: 00 05-12 23:59 :00 No 2 capsule DAILY 2 capsule DAILY (route: [...] Therapy Agents minoxidil 2.5 mg tablet 2023-02 0-29 00:00: 00 Yes 0.5 tablet DAILY 0.5 [...] Agents to Treat prazosin 5 mg capsule 2023-02 2-20 00:00: 00 Yes 1 capsule BEDTIME 1 capsule BEDTIME (route: oral) Med Classific ation: Cardiovas cular Therapy Agents Laxative (bisacodyl) 5 mg tablet 2023-02- 00:00: 00 Yes 2 tablet BEDTIME 2 tablet BEDTIME (route: oral) Med Classific ation: Gastroint estinal Therapy Agents nitrofurant oin monohydrate /macrocryst als 100 mg capsule 1-04 00:00: 00 02-28 23:59 :00 No 1 capsule EVERY 12 HOURS 1 capsule EVERY 12 HOURS (route: oral) Med Classific ation: Genitouri nary Therapy metformin ER 500 mg tablet,exte nded release 24 hr 03-18 00:00: 00 04-21 23:59 :00 No 2 tablet EVERY PM 2 tablet EVERY PM (route: oral) Med Classific ation: Endocrine thiamine HCl (vitamin B1) 100 mg tablet 03-24 00:00: 00 05-13 23:59 :00 No 1 tablet EVERY AM 1 tablet EVERY AM (route: oral) Med Classific ation: Electroly te Balance-N utritiona l Products Seroquel 50 mg tablet 03-24 00:00: 00 04-21 23:59 :00 No 1 tablet BEDTIME 1 tablet BEDTIME (route: oral) Med Classific ation: Central Nervous System Agents cyclobenzap rine 10 mg tablet 2023-02 00:00: 00 Yes 1 tablet 3 TIMES [...] Treat Depakote 250 mg tablet,kassandra yed release 04-01 00:00: 00 04-21 23:59 :00 No 1 tablet 2 TIMES DAILY 1 tablet 2 TIMES DAILY (route: oral) Med Classific ation: Central Nervous System Agents Depakote 500 mg tablet,kassandra yed release 2 00:00: 00 04-21 23:59 :00 No 1 tablet 2 TIMES DAILY 1 tablet 2 TIMES DAILY (route: oral) Med Classific ation: Central Nervous System Agents Vitamin D3 50 mcg (2,000 unit) tablet 2-11 00:00: 00 Yes 2 tablet EVERY AM 2 tablet EVERY AM (route: oral) Med Classific ation: Electroly te Balance-N utritiona l Products nitrofurant oin macrocrysta l 100 mg capsule 2-11 00:00: 00 04-06 23:59 :00 No 1 capsule 2 TIMES DAILY 1 capsule 2 TIMES DAILY (route: oral) Med Classific ation: Genitouri nary Therapy clonazepam 0.5 mg tablet 2-14 00:00: 00 04-09 23:59 :00 No 1 tablet DAILY 1 tablet DAILY (route: oral) Med Classific ation: Central Nervous System Agents propranolol 10 mg tablet - 00:00: 00 04-24 23:59 :00 No 1-2 tablet 3 TIMES DAILY 1-2 tablet 3 TIMES DAILY (route: oral) Med Classific ation: Cardiovas cular Therapy Agents ferrous gluconate 324 mg (37.5 mg iron) tablet 04-10 00:00: 00 04-21 23:59 :00 No 1 tablet DIRECTED 1 tablet DIRECTED (route: oral) Med Classific ation: Electroly te Balance-N utritiona l Products Depakote 250 mg tablet,kassandra yed release - 00:00: 00 04-24 23:59 :00 No 1 tablet BEDTIME 1 tablet BEDTIME (route: oral) Med Classific ation: Central Nervous System Agents Depakote 500 mg tablet,kassandra yed release - 00:00: 00 04-24 23:59 :00 No 1 tablet EVERY AM 1 tablet EVERY AM (route: oral) Med Classific ation: Central Nervous System Agents Topamax 50 mg tablet - 00:00: 00 Yes 1 tablet BEDTIME 1 tablet BEDTIME (route: oral) Med Classific ation: Central Nervous System Agents Vraylar 3 mg capsule - 00:00: 00 Yes 1 capsule BEDTIME 1 capsule BEDTIME (route: oral) Med Classific ation: Central Nervous System Agents ferrous gluconate 324 mg (37.5 mg iron) tablet 04-21 00:00: 00 Yes 1 tablet EVERY AM 1 tablet EVERY AM (route: oral) Med Classific ation: Electroly te Balance-N utritiona l Products gabapentin 300 mg capsule 04-25 00:00: 00 05-06 23:59 :00 No 1 capsule BEDTIME 1 capsule BEDTIME (route: oral) Med Classific ation: Central Nervous System Agents propranolol 10 mg tablet 06 00:00: 00 Yes Per instruc tions 3 TIMES DAILY Per instructio ns 3 TIMES DAILY (route: oral) Med Classific ation: Cardiovas cular Therapy Agents gabapentin 300 mg capsule 05-06 00:00: 00 Yes 1 capsule 3 TIMES DAILY 1 capsule 3 TIMES DAILY (route: oral) Med Classific ation: Central Nervous System Agents multivitami n tablet 05-12 00:00: 00 Yes 1 tablet EVERY AM 1 tablet EVERY AM (route: oral) Med Classific ation: Electroly te Balance-N utritiona l Products thiamine HCl (vitamin B1) 50 mg tablet 3 00:00: 00 Yes 1 tablet EVERY AM [...] AMMATORY OR ANTIPYRET IC LEVOTHYROXI NE ORAL 2019-0 5-10 00:00: 00 08-27 00:00 :00 No 50 mcg 50 mcg (route: ) Med Classific ation: ENDOCRINE LEVOTHYROXI NE ORAL 0 8-10 00:00: 00 10-12 00:00 [...] ANTI-INFL AMMATORY OR ANTIPYRET IC QUETIAPINE ORAL 0 6-04 00:00: 08-22 00:00 :00 No 200 mgONE TABLET ONCE DAILY IN THE EVENING WITHOUT MAGEN D 200 mgONE TABLET ONCE DAILY IN THE EVENING WITHOUT MAGEN D (route: ) Alternate Route: (200MG) BY MOUTH OR A LIGHT MEAL UNDER . Med Classific ation: CENTRAL NERVOUS SYSTEM AGENTS QUETIAPINE ORAL 0 4-24 00:00: 00 09-10 00:00 :00 No 400 mg1 TABLET EVERYDAY AT BEDTIME 400 mg1 TABLET EVERYDAY AT BEDTIME (route: ) Alternate Route: BY MOUTH . Med Classific ation: CENTRAL NERVOUS SYSTEM AGENTS QUETIAPINE ORAL 0 1-16 00:00: 00 03-20 00:00 [...] SYSTEM AGENTS LITHIUM CARBONATE ORAL 8-10 00:00: 10-12 00:00 :00 No 450 mg 450 mg (route: ) Med Classific ation: CENTRAL NERVOUS SYSTEM AGENTS LITHIUM CARBONATE ORAL 7-22 00:00: 09-23 00:00 :00 No 450 mg 450 mg (route: ) Med Classific ation: CENTRAL NERVOUS SYSTEM AGENTS DOK ORAL 9-20 00:00: 00 12-08 00:00 :00 No 100 mg1 CAPSULE TWICE A DAY 100 mg1 CAPSULE TWICE A DAY (route: ) Alternate Route: BY MOUTH . Med Classific ation: GASTROINT ESTINAL THERAPY AGENTS DIVALPROEX ORAL 731 00:00: 00 10-18 00:00 :00 No 500 [...] TREAT HYDROXYZINE PAMOATE ORAL 0 8-13 00:00: 10-31 00:00 :00 No 25 mg 25 [...] Med Classific ation: LOCOMOTOR SYSTEM BENZTROPINE ORAL 0 7-22 00:00: 00 09-23 00:00 :00 No 0.5 mg 0.5 mg (route: ) Med Classific ation: CENTRAL NERVOUS SYSTEM AGENTS BENZTROPINE ORAL 0 5-10 00:00: 00 07-13 00:00 :00 No 0.5 mg 0.5 mg (route: ) Med Classific ation: CENTRAL NERVOUS SYSTEM AGENTS BENZTROPINE ORAL 0 1-03 00:00: 03-07 00:00 :00 No 0.5 mg 0.5 [...] GASTROINT ESTINAL THERAPY AGENTS PANTOPRAZOL E ORAL 31 00:00: 00 10-18 00:00 :00 No 40 mg1 TABLET EVERY DAY 40 mg1 TABLET EVERY DAY (route: ) Alternate Route: BY MOUTH . Med Classific ation: GASTROINT ESTINAL THERAPY AGENTS ANTI-DIARRH EAL (LOPERAMIDE ) ORAL 5-17 00:00: 00 07-15 00:00 :00 No [...] Observation Time Observation Value Commen ts Temperature 2024-05-12 11:27:00.000 97.9 [degF] Pulse 2024-05-12 11:27:00.000 72 /min Pulse 2024-05-09 11:46:00.000 100 /min O2 Saturation (%) 2024-05-12 11:29:00.000 98 % Respirations 2024-05-12 11:27:00.000 16 /min Systolic Blood Pressure 2024-05-12 11:27:00.000 142 mm [Hg] Systolic Blood Pressure 2024-05-09 11:46:00.000 98 mm[ Hg] Diastolic Blood Pressure 2024-05-12 11:27:00.000 90 mm [Hg] Diastolic Blood Pressure 2024-05-09 11:46:00.000 60 mm [Hg] Plan of Treatment Planned Activity Planned Date Details Comments Future Scheduled Test SKILLED NU RSE TO EVALUATE PATIENT, IDENTIFY PRIMARY AND CO-MORBID CONDITIONS CODED PER CODING GUIDELINES, AND DEVELOP PATIENT SPECIFIC PLAN OF CARE THAT INCLUDES PATIENT GOAL FOR HOME HEALTH. [code = SKILLED NURSE TO EVALUATE PATIENT, IDENTIFY PRIMARY AND CO-MORBID CONDITIONS CODED PER CODING GUIDELINES, AND DEVELOP PATIENT SPECIFIC PLAN OF CARE THAT INCLUDES PATIENT GOAL FOR HOME HEALTH.] Future Scheduled Test SKILLED NU RSE TO PRE-POUR MEDICATION PER MEDICATION LIST WEEKLY [code = SKILLED NURSE TO PRE-POUR MEDICATION PER MEDICATION LIST WEEKLY ] Future Scheduled Test PATIENT MA Y HAVE ONE SET OF EMERGENCY MEDICATION NOT TO BE PRE-POURED ANY SOONER THAN 24 HOURS BEFORE SEVERE INCLEMENT WEATHER OR EMERGENT EVENT AND FOLLOWING SKILLED NURSE EVALUATION OF PATIENT SAFETY. [code = PATIENT MAY HAVE ONE SET OF EMERGENCY MEDICATION NOT TO BE PRE-POURED ANY SOONER THAN 24 HOURS BEFORE SEVERE INCLEMENT WEATHER OR EMERGENT EVENT AND FOLLOWING SKILLED NURSE EVALUATION OF PATIENT SAFETY.] Future Scheduled Test SKILLED NU RSE TO O/A OF PATIENTS MENTAL/BEHAVIORAL STATUS, ASSESS VITAL SIGNS WEEKLY AND PRN. ALLOW 2 PRNS FOR MEDICATION MANAGEMENT. [code = SKILLED NURSE TO O/A OF PATIENTS MENTAL/BEHAVIORAL STATUS, ASSESS VITAL SIGNS WEEKLY AND PRN. ALLOW 2 PRNS FOR MEDICATION MANAGEMENT.] Future Scheduled Test SKILLED NU RSE FOR O/A OF ALTERED MOOD [code = SKILLED NURSE FOR O/A OF ALTERED MOOD] Future Scheduled Test SKILLED NU RSE MAY PICKUP AND TRANSPORT MEDICATIONS [code = SKILLED NURSE MAY PICKUP AND TRANSPORT MEDICATIONS] Future Scheduled Test MEDICATION S WILL BE HELD AND STORED IN LOCKBOX [code = MEDICATIONS WILL BE HELD AND STORED IN LOCKBOX] Future Scheduled Test SKILLED NU RSE FOR [...] INTERVENTION OF COMPLICATIONS WEEKLY.] Future Scheduled Test SKILLED NU RSE FOR O/A AND SKILLED TEACHING RELATED TO MANAGEMENT OF DEPRESSIVE SYMPTOMS AND/OR DEPRESSION. SN TO REPORT SIGNIFICANT CHANGE IN DEPRESSIVE SYMPTOMS TO CLINICAL PROVIDER FOR EARLY INTERVENTION. [code = SKILLED NURSE FOR O/A AND SKILLED TEACHING RELATED TO MANAGEMENT OF DEPRESSIVE SYMPTOMS AND/OR DEPRESSION. SN TO REPORT SIGNIFICANT CHANGE IN DEPRESSIVE SYMPTOMS TO CLINICAL PROVIDER FOR EARLY INTERVENTION.] Future Scheduled Test SKILLED NU RSE FOR [...] CURRENT PAIN MANAGEMENT REGIMEN.] Future Scheduled Test PATIENT KO S A [...] TO REDUCE AVOIDABLE HOSPITALIZATION AND ED USE.] Future Scheduled Test SKILLED NU RSE TO ASSESS PATIENTS PSYCHOSOCIAL STATUS TO IDENTIFY POTENTIAL ISSUES THAT MAY COMPLICATE THE PROVISION OF THE PLAN OF CARE INCLUDING THE PATIENTS ABILITY TO ACCESS COMMUNITY RESOURCES AND PSYCHOSOCIAL SUPPORT SERVICES. [code = SKILLED NURSE TO ASSESS PATIENTS PSYCHOSOCIAL STATUS TO IDENTIFY POTENTIAL ISSUES THAT MAY COMPLICATE THE PROVISION OF THE PLAN OF CARE INCLUDING THE PATIENTS ABILITY TO ACCESS COMMUNITY RESOURCES AND PSYCHOSOCIAL SUPPORT SERVICES.] Future Scheduled Test SKILLED NU RSE WILL MAINTAIN SITUATIONAL AWARENESS FOR SAFETY AND WILL NOTIFY CLINICAL SHEET PILE HAMMER OPERATOR AND PHYSICIAN/PROVIDER WITH ANY CHANGE IN CONDITION. [code = SKILLED NURSE WILL MAINTAIN SITUATIONAL AWARENESS FOR SAFETY AND WILL NOTIFY CLINICAL SHEET PILE HAMMER OPERATOR AND PHYSICIAN/PROVIDER WITH ANY CHANGE IN CONDITION.] Goal 2022-03-13 Patient Goal - D O [...] - TO BE MED ADH ERENT Goal 2024-05-02 Patient Goal - TO BE MED ADH ERENT Goal Patient Goal - TO BE MED ADH ERENT Goal Provider Goal - A PLAN OF CARE WILL BE ESTABLISHED THAT MEETS PATIENT'S [facility] NEEDS AND INCLUDES PATIENT GOAL FOR HOME HEALTH. Goal Provider Goal - PATIENT WILL COMPLY WITH MEDICATION WHEN SKILLED NURSE PRE-POURS MEDICATION THROUGHOUT CERTIFICATION PERIOD. Goal Provider Goal - MEDICATION WILL BE AVAILABLE DURING INCLEMENT WEATHER OR EMERGENT EVENT THROUGHOUT CERTIFICATION PERIOD. Goal Provider Goal - ALTERED MENTAL/BEHAVIORAL STATUS WILL BE IDENTIFIED PROMPTLY AND INTERVENTION INITIATED QUICKLY TO MINIMIZE ASSOCIATED RISKS THROUGHOUT CERTIFICATION PERIOD. Goal Provider Goal - PATIENT WILL BE ABLE TO PERFORM DAILY FUNCTIONS AND HAVE OPTIMAL IMPROVEMENT IN MOOD STABILITY THROUGHOUT CERTIFICATION PERIOD. Goal Provider Goal - SKILLED NURSE PICKED UP AND TRANSPORTED MEDICATIONS FOR SAFETY. Goal Provider Goal - MEDICATION WILL BE STORED IN LOCKBOX FOR SAFETY. Goal Provider Goal - CHANGE IN GENERAL HEALTH STATUS WILL BE IDENTIFIED AND REPORTED TO PHYSICIAN FOR PROMPT INTERVENTION TO MINIMIZE ASSOCIATED RISKS THROUGHOUT CERTIFICATION PERIOD. Goal Provider Goal - PATIENT WILL REMAIN SAFE WITHOUT DECOMPENSATION IN DEPRESSIVE CONDITION, WHILE MAINTAINING OPTIMAL LEVEL OF MENTAL HEALTH AND WELL BEING THROUGHOUT CERTIFICATION PERIOD. Goal Provider Goal - PATIENT/CAREGIVER WILL DEMONSTRATE UNDERSTANDING OF PHARMACOLOGIC AND NONPHARMACOLOGIC PAIN CONTROL MEASURES AND PATIENT WILL HAVE IMPROVEMENT IN PAIN INTERFERING WITH ACTIVITY EVIDENCED BY PAIN CONTROLLED AT LEVEL OF 4 OR LESS BY END OF CERTIFICATION PERIOD. Goal Provider Goal - PATIENT WILL HAVE SUPPORT MEASURES ESTABLISHED TO PREVENT HOSPITALIZATION AND ED USE AND PATIENT/CAREGIVER WILL VERBALIZE/DEMONSTRATE METHODS TO REDUCE AVOIDABLE HOSPITALIZATION AND ED USE BY END OF EPISODE. Goal Provider Goal - PSYCHOSOCIAL NEEDS WILL BE IDENTIFIED AND PLAN IMPLEMENTED TO MINIMIZE RISK THROUGHOUT CERTIFICATION PERIOD. Goal Provider Goal - PATIENT WILL REMAIN SAFE IN THE COMMUNITY AND WILL BE FREE OF DANGER TO SELF AND OTHERS THROUGHOUT THE CERTIFICATION PERIOD. Encounters Start Date/Time End Date/Time Encounter Type Admission Type Attending [facility] Care Facility Care Department Encounter ID Discharge Date Discharge Status Discharge Condition Discharge Reason Percent Goals Met 2022-01-17 00:00:00 2024-07-04 00:00:00 Outpatient RECERTIFIC ATION GABBY [facility] [id number] 24.00
--- OUTSIDE RECORDS SUMMARY | 2024-05-19 16:18 | XMS_ITS | Encounter Summary ---
Author Organization [employer] Address [address] [place] [address] Care Team Providers Care Tank Stave Assembler Name Role Phone Maddie Kim MD Primary Care Provider [phone] Reason for Visit * Reason Onset Date Comments Call Back Request 07/26/2023 Encounter Details Date Type Department Care Team ([facility] Contact Info) Description 07/26/2023 Telephone [facility] [address] [place] [address] Maddie Kim MD [address], [place] [phone] Call Back Request Social History Tobacco Use [...] 07/27/2023 9:31 AM EDT Tc returned to [facility], questioning pt.'s risperidone inj rx on med list they received. Looking back in chart, this was discontinued after inpatient hosp in 2020 due to noncompliance with injections. This was the last time it was prescribed. [facility] is requesting this is taken off our med list for accuracy, thank you! * Telephone Encounter - Zach Carlson - 07/26/2023 4:12 PM EDT Tc from [facility] with Willie Gage requesting a call back for a med reconciliation. Please contact Georgie at [phone]. documented in this encounter Plan of Treatment Upcoming Encounters Date Type Department Care Team (Late st Contact Info) Description 07/01/2024 11:30 AM EDT Telemedicine [facility] [address] [place] [address] Maddie Kim MD [address], [place] [phone] documented as of this encounter Visit Diagnoses Not on filedocumented in this encounter Additional Health Concerns Assessment Noted Time PHQ-9 Depression Total Score: 3 06/15/19 24 11:48 AM EDT documented as of this encounter Care Teams Tank Stave Assembler Relationship Specialty Start Date End Date Maddie Kim MD [address] [place] [address] PCP - General Family Medicine 07/12/20 Willie Gage 01/17/22 documented as of this encounter
--- OUTSIDE RECORDS SUMMARY | 2024-05-19 16:18 | XMS_ITS | Encounter Summary ---
Author Organization [facility] Address [address] [place] [address] Care Team Providers Care Manager Neonatal Name Role Phone Darya Hamilton MD Primary Care Provider Ronak Beasley, Pcp Primary Care Provider Unavailabl e Darya Hamilton MD Primary Care Provider Lewis Birmingham MD Primary Care Provider Un available Dipesh Kern MD Primary Care Provide r Unavailable Becca Hinkle MD Primary Care Provider Unavailable Encounter Details Date Type Department Care Team Description 10/26/2010 [facility] Medical Records [address] [place] [address] Edilberto Brito MD Social History Tobacco Use Types Packs/Day Years Used Date Smoking Tobacco: Every Day Cigarettes 1 Smokeless Tobacco: Never Comments:started smoking at 14, smokes 2 packs a day Alcohol Use Standard Drinks/Week Comments No 0 (1 standard drink = 0.6 oz pur e alcohol) Sex Assigned at Date Recorded Not on file documented as of this encounter Plan of Treatment Not on file documented as of this encounter Visit Diagnoses Not on filedocumented in this encounter Care Teams Manager Neonatal Relationship Specialty Start Date End Date Darya Hamilton MD PCP - General 06/30/10 03/15/15 [facility], Pcp PCP - General Internal Medicine 03/16/15 06/20/16 Darya Hamilton MD PCP - General Internal Medicine 06/21/16 11/12/16 Lewis Espino MD PCP - General Internal Medicine 11/13/16 Dipesh Kern MD PCP - General Internal Medicine 10/15/18 [place]-Becca Callaway MD PCP - General Internal Medicine 03/23/21 documented as of this encounter
--- OUTSIDE RECORDS SUMMARY | 2024-05-19 16:18 | XMS_ITS | Encounter Summary ---
Author Organization [facility] Address [address] [place] [address] Care Team Providers Care Flatware Maker Name Role Phone Darya Hamilton MD Primary Care Provider Ronak Beasley, Denita Primary Care Provider Unavailabl e Darya Hamilton MD Primary Care Provider Unava Lewis Galvan MD Primary Care Provider Un available Dipesh Kern MD Primary Care Provide r Unavailable Becca Hinkle MD Primary Care Provider Unavailable Reason for Visit * Reason Onset Date Comments Faxed Order 01/20/2014 Encounter Details Date Type Department Care Team Description 01/20/2014 Telephone Adult Medicine [address] [address] Darya Hamilton MD Faxed Order Social History Tobacco Use Types Packs/Day Years Used Date Smoking Tobacco: Every Day Cigarettes 1 Smokeless Tobacco: Never Comments:started smoking at 14 Alcohol Use Standard Drinks/Week Comments No 0 (1 standard drink = 0.6 oz pur e alcohol) Sex Assigned at Date Recorded Not on file documented as of this encounter Miscellaneous Notes * Telephone Encounter - Naya Acosta - 01/20/2014 2:14 PM EST Supplemental orders for Darya Hamilton's signature documented in this encounter Plan of Treatment Not on file documented as of this encounter Visit Diagnoses Not on filedocumented in this encounter Care Teams Flatware Maker Relationship Specialty Start Date End Date Darya Hamilton MD PCP - General 06/30/10 03/15/15 [facility], Pcp PCP - General Internal Medicine 03/16/15 06/20/16 Darya Hamilton MD PCP - General Internal Medicine 06/21/16 11/12/16 Lewis Espino MD PCP - General Internal Medicine 11/13/16 Dipesh Kern MD PCP - General Internal Medicine 10/15/18 [place]-Becca Callaway MD PCP - General Internal Medicine 03/23/21 documented as of this encounter
--- OUTSIDE RECORDS SUMMARY | 2024-05-19 16:18 | XMS_ITS | Encounter Summary ---
Author Organization [facility] Address [address] [place] [address] Care Team Providers Care Thread Spinner Name Role Phone Darya Hamilton MD Primary Care Provider Ronak Beasley, Pcp Primary Care Provider Unavailabl e Darya Hamilton MD Primary Care Provider Lewis Birmingham MD Primary Care Provider Un available Dipesh Kern MD Primary Care Provide r Unavailable Becca Hinkle MD Primary Care Provider Unavailable Encounter Details Date Type Department Care Team Description 10/27/2013 Controlled Substance Plan Medical Records [address] [place] [address] Abstract, Provider Social History Tobacco Use Types Packs/Day Years [...] on filedocumented in this encounter Care Teams Thread Spinner Relationship Specialty Start Date End Date Darya Hamilton MD PCP - General 06/30/10 03/15/15 [facility], Pcp PCP - General Internal Medicine 03/16/15 06/20/16 Darya Hamilton MD PCP - General Internal Medicine 06/21/16 11/12/16 Lewis Espino MD PCP - General Internal Medicine 11/13/16 Dipesh Kern MD PCP - General Internal Medicine 10/15/18 Becca Hinkle MD PCP - General Internal Medicine 03/23/21 documented as of this encounter
--- OUTSIDE RECORDS SUMMARY | 2024-05-19 16:18 | XMS_ITS | Encounter Summary ---
Author Organization [facility] Address [address] [place] [address] Care Team Providers Care Pari Mutuel Ticket Seller Name Role Phone Darya Hamilton MD Primary Care Provider Ronak Beasley, Pcp Primary Care Provider Unavailabl e Darya Hamilton MD Primary Care Provider Lewis Birmingham MD Primary Care Provider Un available Dipesh Kern MD Primary Care Provide r Unavailable Becca Hinkle MD Primary Care Provider Unavailable Encounter Details Date Type Department Care Team Description 02/27/2014 [facility] Medical Records [address] [place] [id number] Abstract, Provider Social History Tobacco Use Types [...] on file documented as of this encounter Procedures Procedure Name Priority Date/Time Associated Diagnosis Comments OUTSIDE LAB Routine 01/02/2014 documented in this encounter Results * OUTSIDE LAB (01/02/2014) Provider Abstract LAB documented in this encounter Visit Diagnoses Not on filedocumented in this encounter Care Teams Pari Mutuel Ticket Seller Relationship Specialty Start Date End Date Darya Hamilton MD PCP - General 06/30/10 03/15/15 [facility], Pcp PCP - General Internal Medicine 03/16/15 06/20/16 Darya Hamilton MD PCP - General Internal Medicine 06/21/16 11/12/16 Lewis Espino MD PCP - General Internal Medicine 11/13/16 Dipesh Kern MD PCP - General Internal Medicine 10/15/18 [place]-Becca Callaway MD PCP - General Internal Medicine 03/23/21 documented as of this encounter
--- OUTSIDE RECORDS SUMMARY | 2024-05-19 16:18 | XMS_ITS | Encounter Summary ---
Author Organization [facility] Address [address] [place] [address] Care Team Providers Care Wax Pot Tender Name Role Phone Darya Hamilton MD Primary Care Provider Unanile neumann [facility], Pcp Primary Care Provider Unavailabl e Darya Hamilton MD Primary Care Provider Unava Lewis Galvan MD Primary Care Provider Un available Dipesh Kern MD Primary Care Provide Becca Dunbar MD Primary Care Provider Unavailable Reason for Visit * Reason Onset Date Comments pain, stomach 11/16/2011 Encounter Details Date Type Department Care Team Description 11/16/2011 Telephone Adult Medicine [address] [address] Darya Hamilton MD pain, stomach Social History Tobacco Use Types Packs/Day Years Used Date Smoking Tobacco: Every Day Cigarettes 1 Smokeless Tobacco: Never Comments:started smoking at 14 Alcohol Use Standard Drinks/Week Comments Yes 0 (1 standard drink = 0.6 oz pur e alcohol) weekends Sex Assigned at Date Recorded Not on file documented as of this encounter Miscellaneous Notes * Telephone Encounter - Lizz Mosqueda R.N. - 11/16/2011 2:44 PM EDT Message forwarded to Kolton Tanner PA-C for review/advice * Telephone Encounter - Karol Cota - 11/16/2011 2:16 PM EDT Symptoms patient is presenting: pt was in to see [facility] and was sent to [facility] for her stomach pain, and [facility] just gave her tramadyl and she has some at Home she is still in pain and needs to speak to the nurse she stated that [facility] did not solve the problem How long has patient had these symptoms?: today PCP: Darya Hamilton MD [place] Product Type: [place]ARE [id number] documented in this encounter Plan of Treatment Not on file documented as of this encounter Visit Diagnoses Not on filedocumented in this encounter Care Teams Wax Pot Tender Relationship Specialty Start Date End Date Darya Hamilton MD PCP - General 06/30/10 03/15/15 [facility], Pcp PCP - General Internal Medicine 03/16/15 06/20/16 Darya Hamilton MD PCP - General Internal Medicine 06/21/16 11/12/16 Lewis Espino MD PCP - General Internal Medicine 11/13/16 Dipesh Kern MD PCP - General Internal Medicine 10/15/18 [place]-Becca Callaway MD PCP - General Internal Medicine 03/23/21 documented as of this encounter
--- OUTSIDE RECORDS SUMMARY | 2024-05-19 16:18 | XMS_ITS | Encounter Summary ---
Author Organization [facility] Address [address] [place] [address] Care Team Providers Care Equipment Service Technician Name Role Phone Darya Hamilton MD Primary Care Provider Ronak Beasley, Pcp Primary Care Provider Unavailabl e Darya Hamilton MD Primary Care Provider Lewis Birmingham MD Primary Care Provider Un available Dipesh Kern MD Primary Care Provide r Unavailable Becca Hinkle MD Primary Care Provider Unavailable Encounter Details Date Type Department Care Team Description 11/14/2010 Eye Cellophane Worker Report Medical Records [address] [place] [id number] Verstringdeb, Jude E III Social History Tobacco Use Types Packs/Day Years Used Date Smoking Tobacco: Every Day Cigarettes 1 Smokeless Tobacco: Never Alcohol Use Standard Drinks/Week Comments Yes 0 (1 standard drink = 0.6 oz pur e alcohol) weekends Sex Assigned at Date Recorded Not on file documented as of this encounter Plan of Treatment Not on file documented as of this encounter Visit Diagnoses Not on filedocumented in this encounter Care Teams Equipment Service Technician Relationship Specialty Start Date End Date Darya Hamilton MD PCP - General 06/30/10 03/15/15 [facility], Pcp PCP - General Internal Medicine 03/16/15 06/20/16 Darya Hamilton MD PCP - General Internal Medicine 06/21/16 11/12/16 Lewis Espino MD PCP - General Internal Medicine 11/13/16 Dipesh Kern MD PCP - General Internal Medicine 10/15/18 Becca Hinkle MD PCP - General Internal Medicine 03/23/21 documented as of this encounter
--- OUTSIDE RECORDS SUMMARY | 2024-05-19 16:18 | XMS_ITS | Encounter Summary ---
Author Organization [employer] Address [address] [facility] [address] [place] [address] Care Team Providers Care Bee Raiser Name Role Phone Maddie Kim MD Primary Care Provider [phone] Encounter Details Date Type Department Care Team ([facility] st Contact Info) Description 06/13/2023 Orders Only [facility] MEDICINE [address] [place], [place] [phone] Maddie Kim MD [address] [place], [place] [phone] Social History Tobacco Use Types Packs/Day Years [...] [facility] [address] [place] [address] Maddie Kim MD [address] [place] [address] documented as of this encounter Visit Diagnoses Not on filedocumented in this encounter Additional Health Concerns Assessment Noted Time PHQ-9 Depression Total Score: 0 05/30/19 23 3:26 PM EDT documented as of this encounter Care Teams Bee Raiser Relationship Specialty Start Date End Date Maddie Kim MD [address] [place] [address] PCP - General Family Medicine 07/12/20 Willie Gage 01/17/22 documented as of this encounter
--- OUTSIDE RECORDS SUMMARY | 2024-05-19 16:18 | XMS_ITS | Encounter Summary ---
Author Organization [facility] Address [address] [place] [address] Care Team Providers Care Driller Operator Name Role Phone Darya Hamilton MD Primary Care Provider Ronak Beasley, Pcp Primary Care Provider Unavailabl e Darya Hamilton MD Primary Care Provider Lewis Birmingham MD Primary Care Provider Un available Dipesh Kern MD Primary Care Provide r Unavailable Becca Hinkle MD Primary Care Provider Unavailable Encounter Details Date Type Department Care Team Description 12/04/2013 [facility] Medical Records [address] [place] [address] Abstract, Provider Social History Tobacco Use Types [...] Date/Time Associated Diagnosis Comments OUTSIDE LAB Routine 09/02/2013 documented in this encounter Results * OUTSIDE LAB (09/02/2013) Provider Abstract LAB documented in this encounter Visit Diagnoses Not on filedocumented in this encounter Care Teams Driller Operator Relationship Specialty Start Date End Date Darya Hamilton MD PCP - General 06/30/10 03/15/15 [facility], Pcp PCP - General Internal Medicine 03/16/15 06/20/16 Darya Hamilton MD PCP - General Internal Medicine 06/21/16 11/12/16 Lewis Espino MD PCP - General Internal Medicine 11/13/16 Dipesh Kern MD PCP - General Internal Medicine 10/15/18 [place]-Becca Callaway MD PCP - General Internal Medicine 03/23/21 documented as of this encounter
--- OUTSIDE RECORDS SUMMARY | 2024-05-19 16:18 | XMS_ITS | Encounter Summary ---
Author Organization [employer] [facility] Address [address] [facility] [address] [place] [address] Care Team Providers Care Lap Machine Tender Name Role Phone Maddie Kim MD Primary Care Provider [phone] Encounter Details Date Type Department Care Team ([facility] st Contact Info) Description 05/15/2023 Orders Only [facility] MEDICINE [address] [place], [place] [phone] Maddie Kim MD [address] [place], [place] [phone] Social History Tobacco Use Types Packs/Day Years [...] Description 07/01/2024 11:30 AM EDT Telemedicine [facility] MEDICINE [address] [place] [address] [phone] Maddie Kim MD [address] [place] [address] [phone] documented as of this encounter Visit Diagnoses Not on filedocumented in this encounter Additional Health Concerns Assessment Noted Time PHQ-9 Depression Total Score: 0 05/30/19 23 3:26 PM EDT documented as of this encounter Care Teams Lap Machine Tender Relationship Specialty Start Date End Date Maddie Kim MD [address] [place] [address] [phone] PCP - General Family Medicine 07/12/20 Willie Gage 01/17/22 documented as of this encounter
--- OUTSIDE RECORDS SUMMARY | 2024-05-19 16:18 | XMS_ITS | Encounter Summary ---
Author Organization [facility] Address [address] [place] [address] Care Team Providers Care Cost Estimating Engineer Name Role Phone Darya Hamilton MD Primary Care Provider Rnoak Beasley, Pcp Primary Care Provider Unavailabl e Darya Hamilton MD Primary Care Provider Lewis Birmingham MD Primary Care Provider Un available Dipesh Kern MD Primary Care Provide r Unavailable Becca Hinkle MD Primary Care Provider Unavailable Encounter Details Date Type Department Care Team Description 04/03/2012 Release of Information Medical Records [address] [place] [id number] Abstract, Provider Social History Tobacco Use Types [...] on filedocumented in this encounter Care Teams Cost Estimating Engineer Relationship Specialty Start Date End Date Darya Hamilton MD PCP - General 06/30/10 03/15/15 [facility], Pcp PCP - General Internal Medicine 03/16/15 06/20/16 Darya Hamilton MD PCP - General Internal Medicine 06/21/16 11/12/16 Lewis Espino MD PCP - General Internal Medicine 11/13/16 Dipesh Kern MD PCP - General Internal Medicine 10/15/18 Becca Hinkle MD PCP - General Internal Medicine 03/23/21 documented as of this encounter
--- OUTSIDE RECORDS SUMMARY | 2024-05-19 16:18 | XMS_ITS | Encounter Summary ---
Author Organization [employer] Address [address] [place] [address] 7[address] [place] [address] Care Team Providers Care Cable Television Line Technician Name Role Phone Maddie Kim MD Primary Care Provider [phone] Reason for Visit * Reason Onset Date Comments FYI 02/15/2024 Encounter Details Date Type Department Care Team ([facility] Contact Info) Description 02/15/2024 Telephone [facility] MEDICINE [address] [place], [place] [phone] Maddie Kim MD [address] [place], [place] [phone] FY Social History Tobacco Use Types Packs/Day [...] any questions you can contact Lauren at [phone]. documented in this encounter Plan of Treatment Upcoming Encounters Date Type Department Care Team (Late st Contact Info) Description 07/01/2024 11:30 AM EDT Telemedicine [facility] MEDICINE [address] [place] [phone] Maddie Kim MD [address] [place] [address] documented as of this encounter Visit Diagnoses Not on filedocumented in this encounter Additional Health Concerns Assessment Noted Time PHQ-9 Depression Total Score: 3 06/15/19 24 11:48 AM EDT documented as of this encounter Care Teams Cable Television Line Technician Relationship Specialty Start Date End Date Maddie Kim MD [address] [place] [id number] PCP - General Family Medicine 07/12/20 Willie Gage 01/17/22 documented as of this encounter
--- OUTSIDE RECORDS SUMMARY | 2024-05-19 16:18 | XMS_ITS | Encounter Summary ---
Author Organization [facility] Address [address] [place] [address] Care Team Providers Care Juvenile Justice Officer Name Role Phone Darya Hamilton MD Primary Care Provider Unava nel [facility], Pcp Primary Care Provider Unavailabl e Darya Hamilton MD Primary Care Provider Unava Lewis Galvan MD Primary Care Provider Un available Dipesh Kern MD Primary Care Provide r Unavailable Becca Hinkle MD Primary Care Provider Unavailable Encounter Details Date Type Department Care Team Description 06/12/2013 Telephone Physiatry - [address] [address] Lucia Contreras PA-C Social History Tobacco Use Types Packs/Day Years Used Date Smoking Tobacco: Every Day Cigarettes 1 Smokeless Tobacco: Never Comments:started smoking at 14 Alcohol Use Standard Drinks/Week Comments No 0 (1 standard drink = 0.6 oz pur e alcohol) Sex Assigned at Date Recorded Not on file documented as of this encounter Miscellaneous Notes * Telephone Encounter - Mirtha Benavidez M.A. - 06/13/2013 10:20 AM EDT Atiya does not want anymore medication but she would like an injection . Please order * Telephone Encounter - Marilynn Akers - 06/13/2013 9:55 AM EDT Patient would like to a call back to discuss why she needs another appt. Please call * Telephone Encounter - Mirtha Benavidez M.A. - 06/13/2013 8:12 AM EDT If patient calls back she needs to make an appointment to see Lucia Contreras * Telephone Encounter - Magdy Can C.M.A. - 06/12/2013 3:26 PM EDT Left message for her to call back. Stated over vm that we need to know what medication she wants toincrease * Telephone Encounter - Katia Luo - 06/12/2013 11:58 AM EDT Patient calling to speak with Lucia Contreras about possibly increasing her medication and giving her a referral to get injections in her back Please call her after 3pm. documented in this encounter Plan of Treatment Scheduled Orders Name Type Priority Associated Diagnoses Orde r Schedule PHYSIATRY PROCEDURE PHYSIATRY Routine Chronic back pain Chronic lumbar radiculopathy Ordered: 06/13/2013 documented as of this encounter Visit Diagnoses Diagnosis Chronic lumbar radiculopathy- Primary Thoracic or lumbosacral neuritis or radiculitis, unspecified Chronic back pain Backache, unspecified documented in this encounter Care Teams Juvenile Justice Officer Relationship Specialty Start Date End Date Darya Hamilton MD PCP - General 06/30/10 03/15/15 [facility], Pcp PCP - General Internal Medicine 03/16/15 06/20/16 Darya Hamilton MD PCP - General Internal Medicine 06/21/16 11/12/16 Lewis Espino MD PCP - General Internal Medicine 11/13/16 Dipesh Kern MD PCP - General Internal Medicine 10/15/18 [place]-Becca Callaway MD PCP - General Internal Medicine 03/23/21 documented as of this encounter
--- OUTSIDE RECORDS SUMMARY | 2024-05-19 16:18 | XMS_ITS | Data Portability ---
Author Organization [employer] [employer] Address [address] [place] [phone] Care Team Providers Care Blasting Clay Miner Name Role Phone HIM [facility] OTHER [facility] OTHER [phone] Assessment Encounter Date Assessment Date Assessment LastModified by Organization Details LastModified Time 02/23/2024 02/23/2024 I provided real -time medical direction via phone for this encounter and was available for additional phone-based assistance as needed. I have reviewed and agree with the Assessment and Plan as documented by the Rubber Extrusion Machine Operator. Patient given the opportunity to ask [...] The patient is now voiding normally. Per vehicle mechanic on the scene the patient has stable vitals and is afebrile currently after taking Tylenol. Known UTI and would continue to take the antibiotic prescribed as well as Tylenol. Discussed red flags. Medic request urine culture sent to [email or web address]. Allergies: Reviewed Not available 02/23/2024 16:20:42 02/26/2024 02/26/2024 I have reviewed and agree with the assessment and plan as documented by the vehicle mechanic. I provided real-time medical direction for this encounter and was immediately available to provide additional phone-based assistance as needed. History as noted in EMR and by vehicle mechanic. I would add / emphasize: Patient [...] Assessment and Plan as documented by the Rubber Extrusion Machine Operator. Patient given the opportunity to ask questions. Our service contacted for an assessment of: Hypertension As per above, patient with fluctuating blood pressures recently a medication adjustments. Is asymptomatic but wanted blood pressure check today. Denies chest pain, shortness of breath, dyspnea on exertion. Is adherent to all medications. Denies headache or neurologic changes. Per vehicle mechanic on the scene, vital signs are stable patient is afebrile. Exam unremarkable per vehicle mechanic on the scene. ECG noted Impression: Hypertension [...] Lab urinalysis, dipstick 2024 025 [facility] Manz[facility], [address] [place] [address], [place], [address], 16:34:28 culture, urine 2024 025 S[place] [facility] (Centralized Electronic Ordering - All Locations), Patient Can Go To The Location Of Their Choice, [address] 20:06:10 culture, urine 2024 025 [place] [facility] (Centralized Electronic Ordering - All Locations), Patient Can Go To The Location Of Their Choice, [address] 08:07:59 rapid flu (A+B) 2024 025 [facility], [address] [place] [address], [id number], 08:13:58 rapid SARS CoV 2 Ag, QL IA, respiratory specimen 2024 025 [facility], [address] [place] [address], [id number], 08:13:39 culture, urine 2024 025 [place] [employer], [address], [place], [address], 04:41:56 Referral None recorded. Procedures None recorded. Surgeries None recorded. Imaging electrocard iogram 2024 025 [facility], [address] [place] [address], [phone], 07:59:45 Medication Orders None recorded. Patient TargetsNo targets recorded. Patient InstructionsNo instructions recorded. Reason for Referral None Reported. Results Created Date Observation Date Name Description Value Unit Range Abnormal Flag Note LastModifiedBy Organization Detail LastModifiedTime 02/22/1902/26/2024 CULTU RE, URINE , ROUTI NE culture, urine, routine SEE NOTE CULTU RE, URINE , ROUTI NE Micro Numbe r: [id number] Test Statu s: Final Speci men Sourc e: Urine Speci men Quali ty: Adequ ate Resul t: No Growt h Not Available [email or web address] [address], [place], [address], 02/26/2024 04:41:56 02/25/19 25 02/29/2024 URINE CULTU RE,CO MPREH ENSIV E urine culture,comp rehensive Final report Not Available [facility] ([facility]) [address], [place], [address], 02/29/2024 10:06:00 02/25/19 25 02/29/2024 URINE CULTU RE,CO MPREH ENSIV E result 1 COMMEN T No growt h in 36 - 48 hours . Not Available [facility] ([facility]) [address], [place], [address], 02/29/2024 10:06:00 03/23/19 25 03/24/2024 URINE CULTU RE, ROUTI NE urine culture, routine Final report Not Available [facility] ([facility]) [address], [place], [address], 03/24/2024 20:06:10 03/23/19 25 03/24/2024 URINE CULTU RE, ROUTI NE result 1 COMMEN T Cultu re shows less than 10,00 0 colon y formi ng units of bacte carter per angela liter of urine . This colon y count is not gener ally consi dered to be clini rubén signi fican t. Not Available [facility] ([facility]) [address], [place], [address], 03/24/2024 20:06:10 04/20/1904/19/2024 elect richie soto am No observ ation record ed. [email or web address] [address], [address], 04/19/2024 08:02:01 Result Notes None recorded. Procedures Surgical History None recorded. Imaging Results Imaging Date Name Status LastModified by Organization Details LastModified Time 04/19/2024 electrocardiogram completed [email or web address], [address], 04/19/2024 08:02:01 Procedure Notes None recorded. Medical Equipment None Reported. Allergies Allergen ID Allergen Name Allergen Category Reaction Reaction Severity Criticality Documentation Date Start Date Code Code System Note Provider Name and Address Organization Details Recorded Time 20895 Dilantin medicatio n Not available Not available Not available 02/22/2024 0 RxNorm Not Available [facility] - production 5 14:48:20 39571 sulfameth oxazole medicatio n Not available Not available Not available 02/22/2024 89517 RxNorm Not Available [facility] 5 14:48:20 15292 trimethop rim medicatio n Not available Not available Not available 02/22/2024 77557 RxNorm Not Available [facility] - production 5 14:48:20 45863 Product containin g penicilli n (product) medicatio n Not available Not available Not available 02/22/2024 47958 8001 SNOMED Not Available [facility] - production 5 14:48:20 65163 penicilli n G benzathin e medicatio n Not available Not available Not available 02/22/2024 7982 RxNorm Not Available [facility] - production 5 14:48:20 93886 penicilli n G procaine medicatio n Not available Not available Not available 02/22/2024 7983 RxNorm Not Available [facility] - production 5 14:48:20 Medications [...] [degF] 157.48 cm 19 /min 96 /min 483939. 712 g 125 mm[Hg] 82 mm[Hg] Not [...] /min 107 mm[Hg] 73 mm[Hg] Not Available [employer] - 5 18:50:30 Date Recorded Body temperature Oxygen saturation Oxygen saturation in Arterial blood by Pulse oximetry Heart rate Respiratory rate Systolic blood pressure Diastolic blood pressure Provider Name and Address Organization Details Last Updated DateTime 5 98.6 [degF] 98 % 98 % 77 /min 18 /min 132 mm[Hg] 91 mm[Hg] Not Available [employer] - 5 21:02:13 Social History None recorded. Functional Status None recorded. Mental Status None recorded. Family History Nothing Reported. Medical History No medical history recorded. Gynecological HistoryNo gynecological history recorded. Obstetrics History GPAL:G 0 P 0 0 0 0 Past Encounters Encounter ID Performer Location Encounter Start Date Encounter Closed Date Diagnosis/Indication Diagnosis SNOMED-CT Code Diagnosis ICD10 Code Diagnosis Note [id number] KALYN YAO MD [facility] - [facility] [address] [place] [id number] 02/22/2024 21:29:01 02/23/2024 18:48:12 Urinary symptoms 042029087 R39.9 Evaluation in the field was performed by my vehicle mechanic colleague, as noted above, I provided [...] first dose was administer ed by the vehicle mechanic. -To alleviate the burning sensation, a [...] or flank pain or any other concerns. [id number] Fawn Coelho MD [facility] - [facility] [address] [place] [id number] 02/23/2024 14:34:12 02/23/2024 18:56:04 Urinary symptoms [id number] R39.9 [id number] Aramis Gallardo MD Main - [facility] [address] [place] [phone] 02/26/2024 11:22:16 02/28/2024 11:56:29 Urinary symptoms 472910614 R39.9 Fever [id number] R50.9 [id number] Jessica Hadley MD Main - [facility] [address] [place] [id number] 03/23/2024 13:03:05 03/25/2024 16:45:46 Urinary symptoms [id number] R39.9 As noted, we were called to see this patient regarding concerns of urinary symptoms. Evaluation in the field was performed by my vehicle mechanic colleague, as noted above, I provided [...] changes to consciousn ess, chest pain, dypsnea. [id number] Alisia Aguirre MD [facility] - [facility] [address] [place] [id number] 04/01/2024 18:50:28 04/01/2024 19:49:17 Low back pain [id number] M54.50 48 year old female with a [...] of the lower extremitie s. Prior to [facility]'s visit she took an excedrin which is helping bring the paind own. Exam notable for normal vital signs, neurologic exam is grossly normal. Presentati on consistent with acute on chronic lumbar radiculopa thy, no red flags noted. I have reviewed and agree with the assessment and plan as documented by the vehicle mechanic. I provided real-time medical direction for this encounter and was immediatel y available to provide additional phone-base d assistance as needed. We discussed the diagnostic uncertaint y of home visits and associated risks. We discussed the need to seek care urgently/e mergently in the setting of any new or worsening symptoms. [id number] Fawn Coelho MD Main - [address] [phone] 04/18/2024 20:44:44 04/19/2024 19:18:03 Essential hypertension 81217031 I10 Health Concerns Section Related Observation LastModified by Organization Detai ls LastModified Time None Recorded Concern Status LastModified by Organization Details LastModified Time None Recorded Advance Directives Directive None Recorded Payers Encounter Date Sequence Insurance Name Policy Number Policy Fernandez Covered Member ID Fernandez Member ID Guarantor Name 02/23/2024 1 [facility] - DOS ON OR AFTER 2022 - DUAL ELIGIBLE - USP OPTIONS AND ONE CARE (MEDICARE REPLACEMENT/ADV ANTAGE - HMO) Atiya Dotson [id number] Atiyaabisai Dotson 02/26/2024 1 [facility] - DOS ON OR AFTER 2022 - DUAL ELIGIBLE - USP OPTIONS AND ONE CARE (MEDICARE REPLACEMENT/ADV ANTAGE - HMO) Atiya Dotson [id number] Atiya Dotson 03/23/2024 1 [facility] - DOS ON OR AFTER 2022 - DUAL ELIGIBLE - USP OPTIONS AND ONE CARE (MEDICARE REPLACEMENT/ADV ANTAGE - HMO) Atiya Dotson [id number] Atiya Dotson 04/01/2024 1 [facility] - DOS ON OR AFTER 2022 - DUAL ELIGIBLE - USP OPTIONS AND ONE CARE (MEDICARE REPLACEMENT/ADV ANTAGE - HMO) Atiya Dotson [id number] Atiya Dotson 04/18/2024 1 [facility] - DOS ON OR AFTER 2022 - DUAL ELIGIBLE - USP OPTIONS AND ONE CARE (MEDICARE REPLACEMENT/ADV ANTAGE - HMO) Atiya Dotson [id number] Atiya Dotson Notes Date Note Type Note [...] ...................... ...................... ...................... ...................... ...................... ...................... ......... Rubber Extrusion Machine Operator Note From Elias Garrison: Pt chief complaint today of fever/ uti symptoms going on for x 1 week. Pt was seen by [facility] personnel 1 day prior to her [facility] meeting today, urine dip was taken and positive for leukocytes and nitrates. [facility] medic was not able to acquire [...] blurred vision. Pt has taken Tylenol before [facility] arrival for fever suppression.Nonneural focal exam, afebrile, vitals WNL, lungs are clear bilaterally. Benign abdominal assessment, no lower extremity edema noted. Pt is CAOX4 with GCS of 15. Urine culture acquired, no urine dip due to positivity yesterday.[facility] Fawn Coelho consultedPt informed, to continue taking her antibiotic which was prescribed prior to her [facility] visit today. Pt told to intake fluids and take 1 gram of Tylenol every 8 hours in a 24 hour period as needed for general aches and fever. Pt also educated on red flag S&S and informed to call emergency services if any present. ...................... ...................... ...................... ...................... ...................... ...................... ......... [facility] Consulted: Fawn Coelho ...................... ...................... ...................... ...................... ...................... ...................... ......... Disposition: Fulfilled Fawn Coelho MD [address] [facility], [place], [address], [employer] ARIELLE 02/23/2024 16:21:22 02/26/2024 text/html CRC Nurse [...] relief. She would like to be evaluated. Rubber Extrusion Machine Operator Organization Information for Sandro Kearney Business Legal Name: [facility] Address: [address] [place] [address], [place] [address], Assistant Professor Of Psychology: Jeff Bautista MD [facility] No.: [id number] Rubber Extrusion Machine Operator POC Test Results from Sandro Kearney HILDA Rapid COVID antigen (11:21:01) COVID: - Rapid influenza antigen (11:21:02) Flu: - ...................... ...................... ...................... ...................... ...................... ...................... ......... Rubber Extrusion Machine Operator Note From Chocolenore Sandro: This 48-year-old female [...] [facility] Consulted: Aramis Gallardo ...................... ...................... ...................... ...................... ...................... ...................... ......... Disposition: Fulfilled Aramis Gallardo MD [address] [place] [address],[address], [place], [address], [facility] 02/28/2024 06:38:26 03/23/2024 text/html CRC Nurse Triage [...] 03/23/2024 Allergies Reviewed at 03/23/2024 - Comments: Computer Operations Technician verified the Pt.'s name//address and phone number. [...] Tylenol for pain - Wellness visit requested Rubber Extrusion Machine Operator Organization Information for Sandro [employer] Legal Name: [facility] Address: [address] [place] [address], Assistant Professor Of Psychology: Jeff Bautista MD CLIA No.: [id number] Rubber Extrusion Machine Operator POC Test Results from Sandro Kearney Urine Dipstick (13:07:26) Urine leukocytes: trace LEXIE Urine nitrites: - NIT Urine urobilinogen: - URO Urine protein: - PRO Urine pH: 5.0 pH Urine blood: - BLO Urine specific gravity: 1.010 SG Urine ketones: - KET Urine bilirubin: - MARCEL Urine glucose: - GLU ...................... ...................... ...................... ...................... ...................... ...................... ......... Rubber Extrusion Machine Operator Note From Sandro Kearney: This 48-year-old female [...] [facility] Consulted: Jessica Hadley ...................... ...................... ...................... ...................... ...................... ...................... ......... Disposition: Fulfilled Jessica Hadley MD [address] [place] [address],[address], [place], [phone], [employer] 03/23/2024 13:41:47 04/01/2024 text/html CRC Nurse Triage [...] ...................... ...................... ...................... ...................... ...................... ...................... ......... Rubber Extrusion Machine Operator Note From Inna Galvan: Sent to a [...] ...................... ......... Disposition: Fulfilled Alisia Aguirre MD [address] [place] [address],[address] [facility], [place], [address], [facility] 04/01/2024 19:22:50 04/18/2024 text/html CRC Nurse Triage [...] hospital. She would like to be evaluated. Rubber Extrusion Machine Operator Organization Information for Inna Galvan [employer] Legal Name: [employer]? Address: [address] [place] [address], Assistant Professor Of Psychology: Benjy COLON No.: [id number] Rubber Extrusion Machine Operator POC Test Results from Inna Galvan EKG (21:04:35) EKG test performed. Attachments uploaded as part of this test result can be found under Documents section. ...................... ...................... ...................... ...................... ...................... ...................... ......... Rubber Extrusion Machine Operator Note From Inna Galvan: Sent to a [...] warm, dry; 12 lead ECG: uploaded to [employer] Pt states she does not want to go to ED, she only wants to be evaluated in home. C consulted and pt is advised ECG appears normal. Pt is advised to rest and follow up with Cardiology as previously planned. Red flags discussed. Pt has no further questions. ...................... ...................... ...................... ...................... ...................... ...................... ......... [facility] Consulted: Fawn Coelho ...................... ...................... ...................... ...................... ...................... ...................... ......... Disposition: Fulfilled Fawn Coelho MD [address] [place] [address],[address], [place], [phone], [facility] 04/19/2024 08:01:24 OBGyn Episode No OBEpisode recorded.
--- OUTSIDE RECORDS SUMMARY | 2024-05-19 16:18 | XMS_ITS | Encounter Summary ---
Author Organization [employer] Address [address] [facility] [address] [place] [address] Care Team Providers Care Complex Case Manager Name Role Phone Maddie Kim MD Primary Care Provider [phone] Encounter Details Date Type Department Care Team ([facility] st Contact Info) Description 07/29/2023 Orders Only [facility] [address] [place], [place] [phone] Maddie Kim MD [address] [place], [place] [phone] Social History Tobacco Use Types Packs/Day Years [...] EDT Telemedicine [facility] [address] [place] [address] Maddie Kim MD [address] [place] [address] documented as of this encounter Visit Diagnoses Not on filedocumented in this encounter Additional Health Concerns Assessment Noted Time PHQ-9 Depression Total Score: 3 06/15/19 24 11:48 AM EDT documented as of this encounter Care Teams Complex Case Manager Relationship Specialty Start Date End Date Maddie Kim MD [address] [place] [address] PCP - General Family Medicine 07/12/20 Willie Gage 01/17/22 documented as of this encounter
--- OUTSIDE RECORDS SUMMARY | 2024-05-19 16:18 | XMS_ITS | Encounter Summary ---
Author Organization [employer] Address [address] [place] [address] [address] [place] [address] Care Team Providers [facility] [employer] Name Role Phone Maddie Kim MD Primary Care Provider [phone] Reason for Referral * Consultation (Routine) - Authorized Specialty Diagnoses / Procedures Referred By Sindi mejia Referred To Contact Cardiology Diagnoses Tachycardia Maddie Kim MD [address] [place] [phone] Phone: tel: fax: [facility] Referral ID Status Reason Start Date Expiration Date Visits Requested Visits Authorized [id number] Authorized Specialty Services Required 04/07/2024 04/07/2025 1 1 Reason for Visit * Reason Comments Follow-up Encounter Details Date Type Department Care Team (Latest Contact Info) Description 04/02/2024 3:30 PM EST Office Visit [facility] [address] [place] [phone] Maddie Kim MD [address] [place] [address] [phone] Schizoaffective disorder, bipolar type (CMS/HCC) (Primary Dx); [...] 04/02/2024 11:00 AM Maddie Kim MD MEDICINE [facility] 04/18/2024 9:[address] DIAB NUTR [facility] Hospital Course and Medication Reconciliation [place] [...] daily Changed: none Discontinued: hydrochlorothiazide Preferred Pharmacy: [facility] [address] [facility] [address] [facility] [phone] Pharmacist Notes Discrepancies: No recent fill found for: Vit B12 (last filled 09/02/23, 90 ds), Folic acid (lf 10/11/23), thiamine (lf 10/11/23), calcium carb (no fill found) Immunizations The MSIS database was reconciled and patient is indicated [...] Social History Social History Narrative Lives in [place] Has daughter in the area who is [...] (CMS/HCC) Current Assessment & Plan Will prescribe Zepbound today based on patient's obesity related co morbidities and difficult to control HTN, knee and ankle pain, and LAUREN. She is also engaged in lifestyle and exercise efforts, as well as having received a gastric bypass surgery in 2008. Relevant Orders TSH W/Reflex to FT4 (Completed) CBC auto differential (Completed) Opioid abuse (CMS/HCC) Overview In sustained remission History of gastrectomy Current Assessment & Plan 2008 gastric sleeve Other Visit Diagnoses Dietary counseling [...] Rfl: Vivitrol injection, , Disp: , Rfl: Brazilian Translation: Patient is bilingual and declines translation services documented in this encounter Miscellaneous Notes * Assessment & Plan Note - Maddie Kim MD - 04/07/2024 10:29 AM EST Associated Problem(s): Class 3 severe obesity with serious comorbidity and body mass index (BMI) of40.0 to 44.9 in adult, unspecified obesity type (CMS/HCC) Will prescribe Zepbound today based on patient's obesity related co morbidities and difficult to control HTN, knee and ankle pain, and LAUREN. She is also engaged in lifestyle and exercise efforts, as well as having received a gastric bypass surgery in 2008. * Assessment & Plan Note - Maddie Kim MD - 04/02/2024 4:07 PM ESTAssociated Problem(s): 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 documented in this encounter Plan of Treatment Upcoming Encounters Date Type Department Care Team (Late st Contact Info) Description 07/01/2024 11:30 AM EDT Telemedicine [facility] [address] [place] [phone] Maddie Kim MD [address] [place] [address] Scheduled Referrals Name Type Priority Associated Diagnoses [...] Blood Count 14.5(H) 4.8 - 10.8 X10*3/uL [facility] Red Blood Count 4.19(L) 4.20 - 5.50 X10*6/uL [facility] Hemoglobin 10.7(L) 12.0 - 16.0 g/dl [facility] Hematocrit 31.5(L) 37.0 - 47.0 % [facility] Mean Corpuscular Volume 75.2(L) 80.0 - 98.0 fL [facility] Mean Corpuscular Hemoglobin 25.5(L) 27.0 - 33.0 pg [facility] Mean Corpuscular HGB Conc 34.0 31.0 - 35.0 g/dl [facility] Red Cell Distribution Width 13.9 11.0 - 16.0 % [facility] Platelet Count 242 160 - 400 X10*3/uL [facility] Mean Platelet Volume 10.3 9.4 - 12.3 fL [facility] Neutrophils Percent Auto 88.6(H) 45 - 73 % [facility] Imm Gran Pct Auto 0.5(H) 0.0 - 0.4 % [facility] Lymphocytes Percent Auto 3.9(L) 20 - 40 % [facility] Monocytes Percent Auto 6.7 2 - 11 % [facility] Eosinophils Percent Auto 0.2 0 - 4 % [facility] Basophils Percent Auto 0.1 0 - 2 % [facility] NRBC Pct Auto 0.0 0.0 - 0.2 /100WBC [facility] Neutrophils Absolute Auto 12.8(H) 2.0 - 8.3 x10*3/uL [facility] Imm Gran Abs Auto 0.07(H) 0.00 - 0.03 X10*3/uL [facility] Lymphocytes Absolute Auto 0.6(L) 1.2 - 4.9 X10*3/uL [facility] Monocytes Absolute Auto 1.0 0.1 - 1.2 X10*3/uL [facility] Eosinophils Absolute Auto 0.0 0.0 - 0.4 X10*3/uL [facility] Basophils Absolute Auto 0.0 0.0 - 0.2 X10*3/uL [facility] NRBC Abs Auto 0.000 0.0 - 0.012 X10*3/uL [facility] Blood Venous blood specimen / Unknown 04/02/2024 4:26 PM EST 04/02/2024 5:31 PM EST Maddie Kim MD LAB BLOOD ORDERABLES Final Res ult Performing Organization Address City/[facility]/ZIP Co de Phone Number [facility] [address] [place] [phone] * TSH W/Reflex to FT4 (04/02/2024 4:26 PM EST) TSH reflex Free T4 1.46 0.32 - 4.0 uIU/mL [facility] Blood Venous blood specimen / Unknown 04/02/2024 4:26 PM EST 04/02/2024 5:31 PM EST Maddie Kim MD LAB BLOOD ORDERABLES Final Res ult Performing Organization Address City/[facility]/ZIP Co de Phone Number [facility] [address] [place] [phone] documented in this encounter Visit Diagnoses [...] Noted Time PHQ-9 Depression Total Score: 3 04/26/20 24 11:48 AM EDT documented as of this encounter Care Teams [employer] Relationship Specialty Start Date End Date Maddie Kim MD [address] [place] [phone] PCP - General Family Medicine 07/12/20 Willie Gage 01/17/22 documented as of this encounter
--- OUTSIDE RECORDS SUMMARY | 2024-05-19 16:18 | XMS_ITS | Clinical Summary ---
Author Organization [employer] Address [address] [place] [address] [address] [place] [address] Care Team Providers Care Catalyst Impregnator Name Role Phone Maddie Kim MD Primary Care Provider [phone] Allergies Active Allergy Reactions Criticality Noted Date [...] into the muscle every 30 (thirty) days. 2 Active prazosin (Minipress) 5 MG capsule Take 1 capsule by mouth at bed time. Active EPINEPHrine (Epipen) 0.3 MG/0.3ML injection syringe 0 Active divalproex (Depakote) 500 MG EC tablet Take 1,000 mg by mouth 2 times daily. 3 Active Blood Pressure kit 1 each 2 times daily. 1 kit 4 05/24/19 25 Active Vivitrol injection 4 Active Emollient (Minerin) lotion APPLY TOPICALLY 2-3 TIMES A DAY NEEDED FOR DRY SKIN 473 mL 4 4 Active albuterol 108 (90 Base) MCG/ACT inhaler Inhale 2 puffs every 6 (six) hours if needed for wheezing. 18 g 11 4 09/07/19 25 Active minoxidil (Loniten) 2.5 MG tablet Take 0.5 tablets by mouth Once per day. 4 Active celecoxib (CeleBREX) 200 MG capsule Take 200 mg by mouth Once per day. 4 Active lisinopril 40 MG tablet Take 1 tablet (40 mg) by mouth Once per day. 90 tablet 3 4 01/02/20 25 Active omeprazole (PriLOSEC) [address] capsule TAKE 1 CAPSULE BY MOUTH BEFORE BREAKFAST 90 capsule 3 4 Active docusate sodium (Colace) 100 MG capsule TAKE 1 CAPSULE BY MOUTH TWICE A DAY 180 capsule 1 5 Active gabapentin (Neurontin) 600 MG tablet Take 1 tablet twice a day and 2 tabs at bedtime 5 Active QUEtiapine (SEROquel) 50 MG tablet Take 1 tablet by mouth at bedtime. And 1 tab once daily as needed 5 Active topiramate 50 MG tablet Take 1 tablet by mouth Once per day. 5 Active nicotine (Nicoderm, Step 1) 21 MG/24HR patch Place 1 patch on the skin 1 (one) time each day at the same time. Active psyllium (Hydrocil) 95 % packet Take 1 packet by mouth Once per day. Mix and drink with at least 8 ounces of water or juice. Active Tirzepatide-Sean ght Management (Zepbound) 2.5 MG/0.5ML solution auto-injector Inject 0.5 mL (2.5 mg) under the skin 1 (one) time per week. 2 mL 3 5 Active cyclobenzaprine (Flexeril) 5 MG tablet Take 1 tablet (5 mg) by mouth if needed in the morning, at noon, and at bedtime for muscle spasms. TAKE 1 TABLET BY MOUTH THREE TIMES A DAY 90 tablet 5 Active ferrous gluconate (Fergon) 324 (38 Fe) MG tablet Take 1 tablet (324 mg) by mouth with breakfast. 90 tablet 3 5 Active Vraylar 1.5 MG capsule 5 Active clonazePAM (KlonoPIN) 0.5 MG tablet 5 Active propranolol (Inderal) 10 MG tablet 5 Active Active Problems Problem Noted Date Diagnosed Date [...] (02/23/2023 8:52 AM EST): Will refer to [facility] hand surgeon History of gastrectomy 10/06/2022 Assessment & Plan (04/02/2024 4:07 PM EST): 2009 gastric sleeve Assessment & Plan (10/06/2022 7:52 AM EDT): Refer to [facility] weight loss program for discussion of [...] unspecified obesity type 03/26/2014 Assessment & Plan (05/14/2024 2:39 PM EDT): Will prescribe Zepbound today based on patient's obesity related co morbidities and difficult to control HTN, knee and ankle pain, and LAUREN. She is also engaged in lifestyle and exercise efforts, as well as having received a gastric bypass surgery in 2008. Assessment & Plan (05/31/2022 10:05 AM EDT): Referral to nutrition She is s/p gastric sleeve? I think discuss portion sizes with zinc plating machine operator Assessment & Plan (01/29/2022 10:40 AM [...] re-iterated that she can reach us through [facility] if she needs anything Assessment & Plan [...] Encounters Date Type Department Care Team Description 05/19/2024 Telephone [facility] [place] [address] Maddie Kim MD Prior Authorization 05/14/2024 Telephone [facility] [place] [address] Maddie Kim MD Prior Authorization (CCA PA Request: Zepbound) 05/14/2024 Telephone [facility] [place] [address] Maddie Kim MD Durable Medical Equipment (DME: [facility] One Care: Walker ) 05/06/2024 Orders Only [facility] [place] [address] Maddie Kim MD Primary hypertension (Primary Dx); Tachycardia; Other chest pain 05/05/2024 Telephone [facility] [place] [address] Maddie Kim MD Referral 04/28/2024 Telephone [facility] [place] [address] Maddie Kim MD Durable Medical Equipment ([facility] DME Request: Handheld Shower, Shower Chair, Shower Mat) 04/14/2024 Orders Only [facility] [place] [address] Maddie Kim MD 04/10/2024 Telephone [facility] [address] [place] [phone] Maddie Kim MD CRITICAL RESULT CALL 04/09/[address] [address] Maddie Kim MD 04/02/2024 3:30 PM EST Office Visit [address] [address] Maddie Kim MD Schizoaffective disorder, bipolar type (CMS/HCC) (Primary Dx); Opioid abuse (CMS/HCC); Class 3 severe obesity with serious comorbidity and body mass index (BMI) of 40.0 to 44.9 in adult, unspecified obesity type (CMS/HCC); Dietary counseling; Exercise counseling; History of gastrectomy; Tachycardia 04/02/2024 Travel 04/02/[address] [address] Maddie Kim MD No Show 03/31/[address] [address] Maddie Kim MD Call Back Request 03/28/[address] [address] Maddie Kim MD FYI 03/28/2024 Patient Outreach [address] [address] Maddie Kim MD Transition Of Care (Tcm) (HDF- Unscheduled- PATIENT REQ. A HDF WITHIN 7 DAYS AND ONLY WITH HER PCP) 03/28/2024 Telephone [facility] [address] [place] [phone] Maddie Kim MD Hospital Follow-up 03/24/[address] [address] Maddie Kim MD 03/24/[address] [address] hSeila Rene, RN NTTS 03/20/[address] NUTRITION APPT REQUEST 03/04/2024 Telephone [facility] [address] [place] [address] Maddie Kim MD verbal order 03/04/2024 Refill [facility] [address] [place] [address] Maddie Kim MD 02/22/2024 Telephone [facility] [address] [place] [address] Maddie Kim MD 02/22/2024 Orders Only [facility] [address] [place] [address] Maddie Kim MD 02/21/2024 Telephone [facility] [address] [place] [address] Maddie Kim MD FYI 02/21/2024 Refill [facility] [address] [place] [address] Maddie Kim MD from Last 3 Months [...] EDT Telemedicine [facility] [address] [place] [address] Maddie Kim MD [address] [place] [address] Health Maintenance Due Date Last Done Comments CT Colonography 1975 Colonoscopy 1977 Colorectal Cancer Screening 1977 FIT DNA/Cologuard 1977 FIT 1975 FOBT 1975 HIV Screening 1975 Sigmoidoscopy 1977 Alcohol/Substance Use Screening 1989 Hepatitis C Screening 10/03/1995 Hepatitis B Vaccines (1 of 3 - [...] on patient's age to complete this topic Hepatitis A Vaccines Aged Out No long er eligible based on patient's age to complete [...] * Cortisol Random (04/14/2024 12:47 PM EST) Pathologist [facility] Cortisol Random 5.7 ug/dL [facility] Comment:Reference Range*: Be fore 10 am 6.2-19.4 ug/dL After 5 pm 2.3-11.9 ug/dL*Please interpret above results accordingly.This test was performed using the everbill chemiluminescentmethod. Values obtained from different assay methods cannotbe used interchangeably.Patients receiving fludrocortisone, prednisolone orprednisone may show artificially elevated cortisol valuesdue to cross-reactivity. 04/14/2024 12:4 7 PM EST 04/14/2024 12:47 PM EST us Generic External Data Provider LAB BLOOD ORDERAB LES Final Result [facility] [address] [place] [phone] * (ABNORMAL) CBC auto differential (04/14/2024 12:47 PM EST) Only the most recent of2 resultswithin the time period is included. Pathologist [facility] White Blood Count 6.5 4.8 - 10.8 X10*3/uL [facility] Red Blood Count 3.74(L) 4.20 - 5.50 X10*6/uL [facility] Hemoglobin 9.4(L) 12.0 - 16.0 g/dl [facility] Hematocrit 29.6(L) 37.0 - 47.0 % [facility] Mean Corpuscular Volume 79.1(L) 80.0 - 98.0 fL [facility] Mean Corpuscular Hemoglobin 25.1(L) 27.0 - 33.0 pg [facility] Mean Corpuscular HGB Conc 31.8 31.0 - 35.0 g/dl [facility] Red Cell Distribution Width 16.1(H) 11.0 - 16.0 % [facility] Platelet Count 530(H) 160 - 400 X10*3/uL [facility] Mean Platelet Volume 9.6 9.4 - 12.3 fL [facility] Neutrophils Percent Auto 56.2 45 - 73 % [facility] Imm Gran Pct Auto 0.6(H) 0.0 - 0.4 % [facility] Lymphocytes Percent Auto 32.5 20 - 40 % [facility] Monocytes Percent Auto 8.8 2 - 11 % [facility] Eosinophils Percent Auto 1.4 0 - 4 % [facility] Basophils Percent Auto 0.5 0 - 2 % [facility] NRBC Pct Auto 0.0 0.0 - 0.2 /100WBC [facility] Neutrophils Absolute Auto 3.7 2.0 - 8.3 x10*3/uL [facility] Imm Gran Abs Auto 0.04(H) 0.00 - 0.03 X10*3/uL [facility] Lymphocytes Absolute Auto 2.1 1.2 - 4.9 X10*3/uL [facility] Monocytes Absolute Auto 0.6 0.1 - 1.2 X10*3/uL [facility] Eosinophils Absolute Auto 0.1 0.0 - 0.4 X10*3/uL [facility] Basophils Absolute Auto 0.0 0.0 - 0.2 X10*3/uL [facility] NRBC Abs Auto 0.000 0.0 - 0.012 X10*3/uL [facility] 04/14/2024 12:4 7 PM EST 04/14/2024 12:47 PM EST us Gil Brewer MD LAB BLOOD ORDERABLES Final Resul t Performing Organization Address [facility] de Phone Number [facility] [address] [place] [phone] * Iron And Total Iron Binding Capacity (04/14/2024 12:47 PM EST) Iron 77 30 - 160 mcg/dL [facility] Total Iron Binding Capacity 339 228 - 428 mcg/dL [facility] Percent Iron Saturation 23 15 - 50 % [facility] Unsaturated Iron Binding 262 ug/dL [facility] 04/14/2024 12:4 7 PM EST 04/14/2024 12:47 PM EST us Gil Brewer MD LAB BLOOD ORDERABLES Final Resul t Performing Organization Address [facility] Phone Number [facility] [address] [place] [phone] * (ABNORMAL) Immunofixation, Serum (04/14/2024 12:47 PM EST) IMMUNOGLOBULIN G 1545 600 - 1640 mg/dL [facility] IMMUNOGLOBULIN A 197 47 - 310 mg/dL [facility] Immunoglobulin M 46(A) 50 - 300 mg/dL [facility] Comment:THIS TEST WAS PERFOR MED AT:[employer] [place] [phone] PARKINSON MD Immunofixation Result SEE NOTE [facility] Comment:Normal pattern. No m onoclonal proteins detected. 04/14/2024 12:4 7 PM EST 04/14/2024 12:47 PM EST us Generic External Data Provider LAB BLOOD ORDERAB LES Final Result Performing Organization Address City/[facility]/ZIP Co de Phone Number [facility] [address] [place] [phone] * Ferritin (04/14/2024 12:47 PM EST) Ferritin 61 10 - 250 ng/mL [facility] 04/14/2024 12:4 7 PM EST 04/14/2024 12:47 PM EST Gil Brewer MD LAB BLOOD ORDERABLES Final Resul t Performing Organization Address [facility] Co de Phone Number [facility] [address] [place] [phone] * (ABNORMAL) Basic Metabolic Panel (04/14/2024 12:47 PM EST) Only the most recent of2 resultswithin the time period is included. Sodium 139 135 - 145 mmol/L [facility] Potassium 4.3 3.3 - 5.1 mmol/L [facility] Chloride 104 96 - 108 mmol/L [facility] Carbon Dioxide 27 22 - 29 mmol/L [facility] Anion Gap 12 12 - 20 [facility] Urea Nitrogen (BUN) 7(L) 9 - 16 mg/dL [facility] Creatinine, Serum 0.69 0.5 - 1.4 mg/dL [facility] Estimated Glomerular Filt Rate >60 [facility] Comment:Chronic Kidney Disea se: Estimated GFR < 60 mL/min/[id number] Kidney Disease: Estimated GFR < 15 mL/min/1.73m2 Glucose 84 60 - 115 mg/dL [facility] Calcium 9.5 8.4 - 10.2 mg/dL [facility] 04/14/2024 12:4 7 PM EST 04/14/2024 12:47 PM EST us Gil Brewer MD LAB BLOOD ORDERABLES Final Resul t Performing Organization Address [facility] Co de Phone Number [facility] [address] [place] [phone] * Sodium Without creatinine, Random Urine (04/14/2024 12:45 PM EST) Sodium Urine Random 47.0 mmol/L [facility] 04/14/2024 12:4 5 PM EST 04/14/2024 1:55 PM EST us Generic External Data Provider LAB BLOOD ORDERAB LES Final Result Performing Organization Address [facility] Phone Number [facility] [address] [place] [phone] * (ABNORMAL) Osmolality, Urine (04/14/2024 12:45 PM EST) OSMOLALITY URINE 212(L) 373 - 1,093 mosm/kg [facility] 04/14/2024 12:4 5 PM EST 04/14/2024 1:55 PM EST us Generic External Data Provider LAB URINE ORDERAB LES Final Result Performing Organization Address [facility] Phone Number [facility] [address] [place] [phone] * TSH W/Reflex to FT4 (04/02/2024 4:26 PM EST) TSH reflex Free T4 1.46 0.32 - 4.0 uIU/mL [facility] Blood Venous blood specimen / Unknown 04/02/2024 4:26 PM EST 04/02/2024 5:31 PM EST us Maddie Kim MD LAB BLOOD ORDERABLES Final Res ult Performing Organization Address [facility] Co de Phone Number [facility] [address] [place] [phone] * Pap Smear (01/22/2024 8:03 AM EST) 01/22/2024 8:03 AM EST 01/23/2024 11:00 AM EST [facility] - 01/25/2024 12:58 PM EST ----- ------- Name: Atiay Esparza ?Age/Sex: 48/F ? : 1975 Unit#: [id number] ?? Attend Dr: John Schmidt MD ?Re01/22/24 ?Status: DEP REF ? Location: HO.LNP ?Disch: ? ----- ------- SPEC : [id number] ?RECD: 01/23/24-1100 ? STATUS: ??SOUT ? REQ NUM: [id number] ? MAMADOU: 01/22/24 ? SUBM DR: John [...] Copies To: ?? Maddie Kim ?? [address] ?? [place] [address] ?? [phone] ?? John Schmidt MD ?? [facility] ?? [address] ?? [place] [address] ?? [phone] ----- ------- Signed (signature on file) Katia Brennan CT ([facility]) 01/25/24 1258 ? ----- ------- ? END OF REPORT ? us Generic External Data Provider LAB CYTOLOGY ORDE RABHARVEY Final Result [facility] [address] [place] [address] [phone] * Lipid Panel, Standard (09/08/2023 8:43 AM EDT) Triglycerides 57 <150 mg/dL [facility] Comment:Desirable Triglyceri de: less than 150 mg/dLBorderline High Triglyceride 150-199 mg/dLHigh Triglyceride: 200-499 mg/dLVery High Triglyceride: greater than or equal to 5OO mg/dL Cholesterol 158 <200 mg/dL [facility] Comment:Desirable Cholestero l: less than 200 mg/dLBorderline High Cholesterol: 200-239 mg/dLHigh Cholesterol: greater than 239 mg/dL LDL Cholesterol Calculated 87 <100 mg/dL [facility] Comment:Desirable LDL: less than 100 mg/dLNear Optimal/Above Optimal LDL: 110- 129 mg/dLBorderline High LDL: 130-159 mg/dLHigh LDL: 160-189 mg/dLVery High LDL: greater than or equal to 190 mg/dL HDL Cholesterol 60 >40 mg/dL [facility] Comment:Desirable HDL: great er than 40 mg/dL Note: This HDL assay may give artificially low results in patients with liver disease. Blood Venous blood specimen / Unknown 09/08/2023 8:43 AM EDT 09/08/2023 11:09 AM EDT us Maddie Kim MD LAB BLOOD ORDERABLES Final Res ult [facility] [address] [facility] [place] [address] [phone] * BI Mammogram Screening Tomosynthesis Bilateral (05/04/2023 4:02 PM EDT) Anatomical Region Laterality Modality Breast Bilateral Mammography 05/04/2023 4:02 PM EDT Narrative 05/26/2023 3:06 PM EDT ? [facility] ? [address] ?[place] [address] ? Mammography Report ? Signed ? Patient: [place],Atiya ?MR#: [id number] ? : 1975 ?Acct:[id number] ? Age/Sex: 47 / F ?ADM Date: 05/04/23 ? Loc: HO.MAMMO ? Attending Dr: Maddie Kim MD ? Ordering Physician: Maddie Kim ?Results: 1Negative ? Date of Service: 05/04/23 ?Follow Up: 1 Year From Orig ?? inal Mammogram ? Procedure(s): MM tomosynthesis screening BI ?? Accession Number(s): [id number] ? cc: Maddie Kim ? EXAMINATION: ?? [...] 1503 ? DD/ 1602 ? TD/TT: ? Electromechanical Assembly Technician: ? Procedure Note John Paul, Zoya - 05/26/2023 [facility] [address] [place] [address] Dr. [place], [place] [address] Mammography Report Signed Patient: Zain Esparza#: [id number] : 1975Acct:[id number] Age/Sex: 47 / FADM Date: 05/04/23 Loc: HO.MAMMO Attending Dr: Maddie Kim MD Ordering Physician: Jaja Kimults: 1Negative Date of Service: 05/04/23Follow Up: 1 Year From [facility] Mammogram Procedure(s): MM tomosynthesis screening BI Accession Number(s): [id number] cc: Maddie Kim EXAMINATION: MM SCREENING DIGITAL [...] in OV> 05/26/23 1503 DD/ 1602 TD/TT: Electromechanical Assembly Technician: Maddie Kim MD IM BI PROCEDURES Final Result * HPV GENOTYPES 16,18/45 (12/20/2020 12:00 AM EDT) HPV 16 RNA NOT DETECTED NOT DETECTED [facility] HPV 18/45 RNA NOT DETECTED NOT DETECTED [facility] Comment: Methodology: Basin Cleaner Mediated Amplification The analytical performance characteristics of this assay have been determined by [employer]. The modifications have not been cleared or approved by the FDA. This assay has been validated pursuant to the CLIA regulations and is used for clinical purposes. 12/20/2020 Maddie Kim MD LAB CYTOLOGY ORDERABLES Final Result [facility] [address] from Last 3 Months or Most Recently Relevant to Health Maintenance Insurance [facility] Care Teams Catalyst Impregnator Relationship Specialty Start Date End Date Maddie Kim MD [address] [place] [phone] PCP - General Family Medicine 07/12/20 Willie Gage 01/17/22
--- OUTSIDE RECORDS SUMMARY | 2024-05-19 16:18 | XMS_ITS | Encounter Summary ---
Author Organization [facility] Address [address] [place] [address] Care Team Providers Care Table Maker Name Role Phone Darya Hamilton MD Primary Care Provider Ronak Beasley, Pcp Primary Care Provider Unavailabl e Darya Hamilton MD Primary Care Provider Lewis Birmingham MD Primary Care Provider Un available Dipesh Kern MD Primary Care Provide r Unavailable Becca Hinkle MD Primary Care Provider Unavailable Encounter Details Date Type Department Care Team Description 01/23/2014 Release of Information Medical Records [address] [place] [id number] Abstract, Provider Social History Tobacco Use Types [...] on filedocumented in this encounter Care Teams Table Maker Relationship Specialty Start Date End Date Darya Hamilton MD PCP - General 06/30/10 03/15/15 [facility], Pcp PCP - General Internal Medicine 03/16/15 06/20/16 Darya Hamilton MD PCP - General Internal Medicine 06/21/16 11/12/16 Lewis Espino MD PCP - General Internal Medicine 11/13/16 Dipesh Kern MD PCP - General Internal Medicine 10/15/18 Becca Hinkle MD PCP - General Internal Medicine 03/23/21 documented as of this encounter
--- OUTSIDE RECORDS SUMMARY | 2024-05-19 16:18 | XMS_ITS | Encounter Summary ---
Author Organization [facility] Address [address] [place] [address] Care Team Providers Care Florist Manager Name Role Phone Darya Lopez MD Primary Care Provider Ronak Beasley Pcp Primary Care Provider Unavailabl e Darya Lopez MD Primary Care Provider Unava Lewis Galvan MD Primary Care Provider Un available Dipesh Kern MD Primary Care Provide Becca Dunbar MD Primary Care Provider Unavailable Reason for Visit * Reason Onset Date Comments Orders Call 01/22/2014 Encounter Details Date Type Department Care Team Description 01/22/2014 Telephone Adult Medicine [address] [address] Darya Lopez MD Orders Call Social History Tobacco Use Types Packs/Day Years Used Date Smoking Tobacco: Every Day Cigarettes 1 Smokeless Tobacco: Never Comments:started smoking at 14 Alcohol Use Standard Drinks/Week Comments No 0 (1 standard drink = 0.6 oz pur e alcohol) Sex Assigned at Date Recorded Not on file documented as of this encounter Miscellaneous Notes * Telephone Encounter - Leny Chase - 01/22/2014 6:50 PM EST MEDICAL RESOURCES [facility] IS FAXING ORDERS TO DR LOPEZ SIGNED AND FAX BACK TO [phone] documented in this encounter Plan of Treatment Not on file documented as of this encounter Visit Diagnoses Not on filedocumented in this encounter Care Teams Florist Manager Relationship Specialty Start Date End Date Darya Lopez MD PCP - General 06/30/10 03/15/15 [facility], Pcp PCP - General Internal Medicine 03/16/15 06/20/16 Darya Lopez MD PCP - General Internal Medicine 06/21/16 11/12/16 Lewis Espino MD PCP - General Internal Medicine 11/13/16 Dipesh Kern MD PCP - General Internal Medicine 10/15/18 Figueroa-Becca Callaway MD PCP - General Internal Medicine 03/23/21 documented as of this encounter
--- OUTSIDE RECORDS SUMMARY | 2024-05-19 16:18 | XMS_ITS | Encounter Summary ---
Author Organization [facility] Address [address] [place] [address] Care Team Providers Care Merchandise Flow Team Member Name Role Phone Darya Hamilton MD Primary Care Provider Ronak Beasley, Pcp Primary Care Provider Unavailabl e Darya Hamilton MD Primary Care Provider Lewis Birmingham MD Primary Care Provider Un available Dipesh Kern MD Primary Care Provide r Unavailable Becca Hinkle MD Primary Care Provider Unavailable Encounter Details Date Type Department Care Team Description 09/25/2011 Business Doc Medical Records [address] [place] [id number] Abstract, Provider Social History Tobacco Use Types [...] on filedocumented in this encounter Care Teams Merchandise Flow Team Member Relationship Specialty Start Date End Date Darya Hamilton MD PCP - General 06/30/10 03/15/15 [facility], Pcp PCP - General Internal Medicine 03/16/15 06/20/16 Darya Hamilton MD PCP - General Internal Medicine 06/21/16 11/12/16 Lewis Espino MD PCP - General Internal Medicine 11/13/16 Dipesh Kern MD PCP - General Internal Medicine 10/15/18 Becca Hinkle MD PCP - General Internal Medicine 03/23/21 documented as of this encounter
--- OUTSIDE RECORDS SUMMARY | 2024-05-19 16:19 | XMS_ITS | Encounter Summary ---
Author Organization [facility] Address [address] [place] [address] Care Team Providers Care Ferry Pilot Name Role Phone Darya Hamilton MD Primary Care Provider Unava ilable Becca Hinkle MD Primary Care Provider Unavailable Community, Pcp Primary Care Provider Unavailabl e Darya Hamilton MD Primary Care Provider Unava ilable Lewis Espino MD Primary Care Provider Un available Dipesh Kern MD Primary Care Provide r Unavailable Becca Hinkle MD Primary Care Provider Unavailable Encounter Details Date Type Department Care Team Description 10/13/2009 Business Doc Medical Records [address] [place] [id number] Abstract, Provider Social History Tobacco Use Types Packs/Day Years Used Date Smoking Tobacco: Every Day Cigarettes 1 Alcohol Use Standard Drinks/Week Comments Yes 0 (1 standard drink = 0.6 oz pur e alcohol) rare Sex Assigned at Date Recorded Not on file documented as of this encounter Plan of Treatment Not on file documented as of this encounter Visit Diagnoses Not on filedocumented in this encounter Care Teams Ferry Pilot Relationship Specialty Start Date End Date Darya Hamilton MD PCP - General 06/30/10 03/15/15 Becca Hinkle MD PCP - General 04/22/0806/29 [facility], Pcp PCP - General Internal Medicine 03/16/15 06/20/16 Darya Hamilton MD PCP - General Internal Medicine 06/21/16 11/12/16 Lewis Espino MD PCP - General Internal Medicine 11/13/16 Dipesh Kern MD PCP - General Internal Medicine 10/15/18 [place]-Becca Callaway MD PCP - General Internal Medicine 03/23/21 documented as of this encounter
--- OUTSIDE RECORDS SUMMARY | 2024-05-19 16:19 | XMS_ITS | Encounter Summary ---
Author Organization [employer] Address [address] [facility] 7t [place] [address] Care Team Providers Care Feather Maker Name Role Phone Maddie Kim MD Primary Care Provider [phone] Reason for Visit * Reason Onset Date Comments Med Refill 04/12/2023 Encounter Details Date Type Department Care Team ([facility] st Contact Info) Description 04/12/2023 Refill [facility] [address] [place], [place] [phone] Maddie Kim MD [address] [place], [place] [phone] Chronic bilateral low back pain without sciatica [...] Info) Description 07/01/2024 11:30 AM EDT Telemedicine [facility] [address] [place] [address] Maddie Kim MD [address] [place] [address] documented as of this encounter Visit Diagnoses Diagnosis Chronic bilateral low back pain without sciatica documented in this encounter Additional Health Concerns Assessment Noted Time PHQ-9 Depression Total Score: 0 05/30/19 23 3:26 PM EDT documented as of this encounter Care Teams Feather Maker Relationship Specialty Start Date End Date Maddie Kim MD [address] [place] [address] PCP - General Family Medicine 07/12/20 Willie Gage 01/17/22 documented as of this encounter
--- OUTSIDE RECORDS SUMMARY | 2024-05-19 16:19 | XMS_ITS | Encounter Summary ---
Author Organization [employer] Address [address] [facility] 7t [place] [address] Care Team Providers Care Timber Setter Name Role Phone Maddie Kim MD Primary Care Provider [phone] Encounter Details Date Type Department Care Team ([facility] st Contact Info) Description 03/19/2023 Orders Only [facility] [address] [place], [place] [phone] Maddie Kim MD [address] [place], [place] [phone] Herniated lumbar intervertebral disc (Primary Dx) Social [...] Info) Description 07/01/2024 11:30 AM EDT Telemedicine [facility] [address] [place] [address] Maddie Kim MD [address] [place] [address] documented as of this encounter Visit Diagnoses Diagnosis Herniated lumbar intervertebral disc- Primary Displacement of lumbar intervertebral disc without myelopathy documented in this encounter Additional Health Concerns Assessment Noted Time PHQ-9 Depression Total Score: 0 05/30/19 23 3:26 PM EDT documented as of this encounter Care Teams Timber Setter Relationship Specialty Start Date End Date Maddie Kim MD [address] [place] [address] PCP - General Family Medicine 07/12/20 Willie Gage 01/17/22 documented as of this encounter
--- OUTSIDE RECORDS SUMMARY | 2024-05-19 16:19 | XMS_ITS | Encounter Summary ---
Author Organization [facility] Address [address] [place] [address] Care Team Providers Care Manager Forensic Name Role Phone Community, Pcp Primary Care Provider UnavailDarya Ness MD Primary Care Provider Unava Lewis Galvan MD Primary Care Provider Un available Dipesh Kern MD Primary Care Provide r Unavailable Becca Hinkle MD Primary Care Provider Unavailable Encounter Details Date Type Department Care Team Description 12/03/2015 Release of Information Medical Records [address] [place] [id number] Abstract, Provider Social History Tobacco Use Types [...] filedocumented in this encounter Care Teams Manager Forensic Relationship Specialty Start Date End Date Community, Pcp PCP - General Internal Medicine 03/16/15 06/20/16 Darya Hamilton MD PCP - General Internal Medicine 06/21/16 11/12/16 Lewis Espino MD PCP - General Internal Medicine 11/13/16 Dipesh Kern MD PCP - General Internal Medicine 10/15/18 Becca Hinkle MD PCP - General Internal Medicine 03/23/21 documented as of this encounter
--- OUTSIDE RECORDS SUMMARY | 2024-05-19 16:19 | XMS_ITS | Encounter Summary ---
Author Organization [facility] Address [address] [place] [address] Care Team Providers Care Assistant General Manager Name Role Phone Darya Hamilton MD Primary [...] Details Date Type Department Care Team Description 03/12/2010 Night Triage Doc Medical Records [address] [place] [address] Abstract, Provider Social History Tobacco Use Types Packs/Day Years Used Date Smoking Tobacco: Every Day Cigarettes 1 Smokeless Tobacco: Never Alcohol Use Standard Drinks/Week Comments No 0 (1 standard drink = 0.6 oz pur e alcohol) Sex Assigned at Date Recorded Not on file documented as of this encounter Plan of Treatment Not on file documented as of this encounter Visit Diagnoses Not on filedocumented in this encounter Care Teams Assistant General Manager Relationship Specialty Start Date End Date Darya Hamilton MD PCP - General 06/30/10 03/15/15 Becca Hinkle MD PCP - General 04/22/0806/29 [facility], Pcp PCP - General Internal Medicine 03/16/15 06/20/16 Darya Hamilton MD PCP - General Internal Medicine 06/21/16 11/12/16 Lewis Espino MD PCP - General Internal Medicine 11/13/16 Dipesh Kern MD PCP - General Internal Medicine 10/15/18 [place]-Becca Callaway MD PCP - General Internal Medicine 03/23/21 documented as of this encounter
--- OUTSIDE RECORDS SUMMARY | 2024-05-19 16:19 | XMS_ITS | Encounter Summary ---
Author Organization [facility] Address [address] [place] [address] Care Team Providers Care Lens Cleaner Name Role Phone Dipesh Kern MD Primary Care Provide r Unavailable Becca Hinkle MD Primary Care Provider Unavailable Reason for Visit * Reason Onset Date Comments Provider Call Back 11/06/2018 Encounter Details Date Type Department Care Team Description 11/06/2018 Telephone Adult Medicine - [address] [address] Dipesh Kern MD Provider Call Back Social History Tobacco Use Types Packs/Day Years Used Date Smoking Tobacco: Every Day Cigarettes 1 Smokeless Tobacco: Never Comments:started smoking at 14, smokes 2 packs a day Alcohol Use Standard Drinks/Week Comments No 0 (1 standard drink = 0.6 oz pur e alcohol) Sex Assigned at Date Recorded Not on file documented as of this encounter Miscellaneous Notes * Telephone Encounter - Shabnam Birmingham L.P.N. - 11/06/2018 1:37 PM EDT Message left on verified voicemail for patient to return our call. * Telephone Encounter - Chacha Domingo - 11/06/2018 12:36 PM EDT PATIENT WANTS TO KNOW WHAT SURGEON SHE WILL BE SCHEDULED WITH FOR HER LEG, SHE WAS SEEN TODAY 11/06/18 AND IS STILL HERE WAITING FOR HER RIDE AT 1:00. PLEASE CALL PT. documented in this encounter Plan of Treatment Not on file documented as of this encounter Visit Diagnoses Not on filedocumented in this encounter Care Teams Lens Cleaner Relationship Specialty Start Date End Date Dipesh Kern MD PCP - General Internal Medicine 10/15/18 [place]-Becca Callaway MD PCP - General Internal Medicine 03/23/21 documented as of this encounter
--- OUTSIDE RECORDS SUMMARY | 2024-05-19 16:19 | XMS_ITS | Encounter Summary ---
Author Organization [facility] Address [address] [place] [address] Care Team Providers Care Hydraulic Oil Tool Operator Name Role Phone Darya Hamilton MD Primary Care Provider Unava ilable Becca Hinkle MD Primary Care Provider Unavailable [facility], Pcp Primary Care Provider Unavailabl e Darya Hamilton MD Primary Care Provider Unava ilable Lewis Espino MD Primary Care Provider Un available Dipesh Kern MD Primary Care Provide r Unavailable Becca Hinkle MD Primary Care Provider Unavailable Encounter Details Date Type Department Care Team Description 09/18/2009 Night Triage Doc Medical Records [address] [place] [address] Abstract, Provider Social History Tobacco Use Types Packs/Day Years Used Date Smoking Tobacco: Every Day Cigarettes 0.3 Comments:5 cig a day Alcohol Use Standard Drinks/Week Comments Yes 0 (1 standard drink = 0.6 oz pur e alcohol) rare Sex Assigned at Date Recorded Not on file documented as of this encounter Plan of Treatment Not on file documented as of this encounter Visit Diagnoses Not on filedocumented in this encounter Care Teams Hydraulic Oil Tool Operator Relationship Specialty Start Date End Date Darya Hamilton MD PCP - General 06/30/10 03/15/15 Becca Hinkle MD PCP - General 04/22/0806/29 [facility], Pcp PCP - General Internal Medicine 03/16/15 06/20/16 Darya Hamilton MD PCP - General Internal Medicine 06/21/16 11/12/16 Lewis Espino MD PCP - General Internal Medicine 11/13/16 Dipesh Kern MD PCP - General Internal Medicine 10/15/18 [place]-Becca Callaway MD PCP - General Internal Medicine 03/23/21 documented as of this encounter
--- OUTSIDE RECORDS SUMMARY | 2024-05-19 16:19 | XMS_ITS | Encounter Summary ---
Author Organization [employer] Address [address] [facility] 7t [place] [address] Care Team Providers Care Hardwood Floor Installation Helper Name Role Phone Maddie Kim MD Primary Care Provider [phone] Reason for Visit * Reason Onset Date Comments Verbal orders/ Medication question 05/08/2023 Encounter Details Date Type Department Care Team ([facility] Contact Info) Description 05/08/2023 Telephone [facility] [address] [place], [place] [phone] Maddie Kim MD [address] [place], [place] [phone] Verbal orders/ Medication question Social History Tobacco [...] 05/09/2023 9:54 AM EDT TC placed to [place] at the [facility] and gave VO for senior care for 3 times a week. Pt medications were also reconciled and pt reports using Viviscal OTC for hair growth and Calcium + VitD supplements. * Telephone Encounter - Toña Castillo - 05/08/2023 4:20 PM EDT Tc from [facility] requesting some verbal orders reconciliation for skill nursing 3 times a week. [place] is also requesting a call back to speak about patient's medications. documented in this encounter Plan of Treatment Upcoming Encounters Date Type Department Care Team (Late st Contact Info) Description 07/01/2024 11:30 AM EDT Telemedicine [facility] [address] [place] [address] Maddie Kim MD [address] [place] [address] documented as of this encounter Visit Diagnoses Not on filedocumented in this encounter Additional Health Concerns Assessment Noted Time PHQ-9 Depression Total Score: 0 05/30/19 23 3:26 PM EDT documented as of this encounter Care Teams Hardwood Floor Installation Helper Relationship Specialty Start Date End Date Maddie Kim MD [address] [place] [address] PCP - General Family Medicine 07/12/20 Willie Gage 01/17/22 documented as of this encounter
--- OUTSIDE RECORDS SUMMARY | 2024-05-19 16:19 | XMS_ITS | Encounter Summary ---
Author Organization [employer] Address [address] [facility] 7t [place] [address] Care Team Providers Care Manager Erp Name Role Phone Maddie Kim MD Primary Care Provider [phone] Reason for Visit * Reason Onset Date Comments Nurse Triage 05/14/2023 Encounter Details Date Type Department Care Team ([facility] st Contact Info) Description 05/14/2023 Telephone [facility] [address] [place], [place] [phone] Maddie Kim MD [address] [place], [place] [phone] Nurse Triage Social History Tobacco Use Types [...] accepted this outcome Any questions to Destiny [phone] documented in this encounter Plan of Treatment Upcoming Encounters Date Type Department Care Team (Late st Contact Info) Description 07/01/2024 11:30 AM EDT Telemedicine [facility] [address] [place] [address] Maddie Kim MD [address] [place] [address] documented as of this encounter Visit Diagnoses Not on filedocumented in this encounter Additional Health Concerns Assessment Noted Time PHQ-9 Depression Total Score: 0 05/30/19 23 3:26 PM EDT documented as of this encounter Care Teams Manager Erp Relationship Specialty Start Date End Date Maddie Kim MD [address] [place] [address] PCP - General Family Medicine 07/12/20 Willie Gage 01/17/22 documented as of this encounter
--- OUTSIDE RECORDS SUMMARY | 2024-05-19 16:19 | XMS_ITS | Encounter Summary ---
Author Organization [employer] Address [address] [place] [address] 7t [place] [address] Care Team Providers Care Therapeutic Case Manager Name Role Phone Maddie Kim MD Primary Care Provider [phone] Reason for Referral * Consultation (Urgent) - Authorized Specialty Diagnoses / Procedures Referred By Sindi mejia Referred To Contact Cardiology Diagnoses Primary hypertension Tachycardia Other chest pain Maddie Kim MD [address] [place] [address] Phone: tel: fax: [facility] Referral ID Status Reason Start Date Expiration Date Visits Requested Visits Authorized [id number] Authorized Specialty Services Required 05/06/2024 05/06/2025 1 1 Encounter Details Date Type Department Care Team (Late st Contact Info) Description 05/06/2024 Orders Only [facility] [address] [place], [place] [phone] Maddie Kim MD [address] [place], [place] [phone] Primary hypertension (Primary Dx); Tachycardia; Other chest pain Social History Tobacco Use Types Packs/Day Years [...] 07/01/2024 11:30 AM EDT Telemedicine [facility]INE [address] [place] [address] Maddie Kim MD [address] [place] [address] Scheduled Referrals Name Type Priority Associated Diagnoses Order Schedule Referral to Cardiology Outpatient Referral Urgent Primary hypertension Tachycardia Other chest pain Expected: 05/06/2024 (Approximate), Expires: 05/06/2025 documented as of this encounter Visit Diagnoses Diagnosis Primary hypertension- Primary Unspecified essential hypertension Tachycardia Unspecified tachycardia Other chest pain documented in this encounter Additional Health Concerns Assessment Noted Time PHQ-9 Depression Total Score: 3 06/15/19 24 11:48 AM EDT documented as of this encounter Care Teams Therapeutic Case Manager Relationship Specialty Start Date End Date Maddie Kim MD [address] [place] [address] PCP - General Family Medicine 07/12/20 Willie Gage 01/17/22 documented as of this encounter
--- OUTSIDE RECORDS SUMMARY | 2024-05-19 16:19 | XMS_ITS | Encounter Summary ---
Author Organization [facility] Address [address] [place] [address] Care Team Providers Care Decaler Name Role Phone Lewis Espino MD Primary Care Provider Un available Dipesh Kern MD Primary Care Provide r Unavailable Becca Hinkle MD Primary Care Provider Unavailable Encounter Details Date Type Department Care Team Description 04/05/2017 Release of Information Medical Records [address] [place] [address] Abstract, Provider Social History Tobacco Use Types [...] on filedocumented in this encounter Care Teams Decaler Relationship Specialty Start Date End Date Lewis Espino MD PCP - General Internal Medicine 11/13/16 Dipesh Kern MD PCP - General Internal Medicine 10/15/18 Becca Hinkle MD PCP - General Internal Medicine 03/23/21 documented as of this encounter
--- OUTSIDE RECORDS SUMMARY | 2024-05-19 16:19 | XMS_ITS | Encounter Summary ---
Author Organization [employer] Address [address] [facility] 7t [place] [address] Care Team Providers Care Inside Phone Sales Name Role Phone Maddie Kim MD Primary Care Provider [phone] Reason for Visit * Reason Onset Date Comments Med Refill 04/04/2023 Encounter Details Date Type Department Care Team ([facility] st Contact Info) Description 04/04/2023 Refill [facility] [address] [place] [phone] Isac Gonzalez MD [address] [place], [place] [phone] Chronic bilateral low back pain without sciatica [...] Info) Description 07/01/2024 11:30 AM EDT Telemedicine [facility] [address] [place] [address] Maddie Kim MD [address] [place] [address] documented as of this encounter Visit Diagnoses Diagnosis Chronic bilateral low back pain without sciatica documented in this encounter Additional Health Concerns Assessment Noted Time PHQ-9 Depression Total Score: 0 05/30/19 23 3:26 PM EDT documented as of this encounter Care Teams Inside Phone Sales Relationship Specialty Start Date End Date Maddie Kim MD [address] [place] [address] PCP - General Family Medicine 07/12/20 Willie Gage 01/17/22 documented as of this encounter
--- OUTSIDE RECORDS SUMMARY | 2024-05-19 16:19 | XMS_ITS | Encounter Summary ---
Author Organization [employer] Address [address] [place] [address] 7t [place] [address] Care Team Providers Care Center Punch Operator Name Role Phone Maddie Kim MD Primary Care Provider Reason for Visit * Reason Onset Date Comments Prior Authorization 05/14/[address]: [employer] Encounter Details Date Type Department Care Team ([facility] Contact Info) Description 05/14/2024 Telephone [facility] [address] [place], [place] [phone] Maddie Kim MD [address] [place] [address] Prior Authorization (MURALI ZEE Request: [employer]) Social History Tobacco Use Types Packs/Day Years [...] encounter Miscellaneous Notes * Telephone Encounter - Ivanna Carlson - 05/14/2024 3:35 PM EDT PA initiated on Cover[employer] for [employer] . Approval/denial pending. Rasmussen: [id number] documented in this encounter Plan of Treatment Upcoming Encounters Date Type Department Care Team (Late st Contact Info) Description 07/01/2024 11:30 AM EDT Telemedicine [facility] MED[facility]INE [address] [place] [address] Maddie Kim MD [address] [place] [address] documented as of this encounter Visit Diagnoses Not on filedocumented in this encounter Additional Health Concerns Assessment Noted Time PHQ-9 Depression Total Score: 3 06/15/19 24 11:48 AM EDT documented as of this encounter Care Teams Center Punch Operator Relationship Specialty Start Date End Date Maddie Kim MD [address] [place] [address] PCP - General Family Medicine 07/12/20 Willie Gage 11/29/22 documented as of this encounter
--- OUTSIDE RECORDS SUMMARY | 2024-05-19 16:19 | XMS_ITS | Encounter Summary ---
Author Organization [employer] Address [address] [place] [address] 7t [place] [address] Care Team Providers Care Senior Director Name Role Phone Maddie Kim MD Primary Care Provider [phone] Encounter Details Date Type Department Care Team (Late Contact Info) Description 01/27/2022 Telephone [facility] MEDICINE [address] [place] [address] Maddie Kim MD [address] [place] [address] Social History Tobacco Use Types Packs/Day Years [...] Info) Description 07/01/2024 11:30 AM EDT Telemedicine [facility] MEDICINE [address] [place] [address] Maddie Kim MD [address] [place] [address] documented as of this encounter Visit Diagnoses Not on filedocumented in this encounter Care Teams Senior Director Relationship Specialty Start Date End Date Maddie Kim MD [address] [place] [address] PCP - General Family Medicine 07/12/20 Willie Gage 01/17/22 documented as of this encounter
--- OUTSIDE RECORDS SUMMARY | 2024-05-19 16:19 | XMS_ITS | Encounter Summary ---
Author Organization [employer] Address [address] [facility] 7t [place] [address] Care Team Providers Care Line Service Attendant Name Role Phone Maddie Kim MD Primary Care Provider [phone] Reason for Visit * Reason Onset Date Comments Referral 05/05/2024 Encounter Details Date Type Department Care Team ([facility] Contact Info) Description 05/05/2024 Telephone [facility] MEDICINE [address] [place], [place] [phone] Maddie Kim MD [address] [place], [place] [phone] Referral Social History Tobacco Use Types Packs/Day Years [...] encounter Miscellaneous Notes * Telephone Encounter - Elier Mckinley - 05/05/2024 3:18 PM EDT Tc from pt requesting referral that was placed for director of security needs to say URGENT as pt has surgery in May and facility inform availability is for June unless PCP states is urgent. documented in this encounter Plan of Treatment Upcoming Encounters Date Type Department Care Team (Late st Contact Info) Description 07/01/2024 11:30 AM EDT Telemedicine [facility] MEDICINE [address] [place] [address] Maddie Kim MD [address] [place] [address] documented as of this encounter Visit Diagnoses Not on filedocumented in this encounter Additional Health Concerns Assessment Noted Time PHQ-9 Depression Total Score: 3 06/15/19 24 11:48 AM EDT documented as of this encounter Care Teams Line Service Attendant Relationship Specialty Start Date End Date Maddie Kim MD [address] [place] [address] PCP - General Family Medicine 07/12/20 Willie Gage 01/17/22 documented as of this encounter
--- OUTSIDE RECORDS SUMMARY | 2024-05-19 16:19 | XMS_ITS | Encounter Summary ---
Author Organization [employer] Address [address] [place] [address] 7[address] [place] [address] Care Team Providers Care Curriculum Manager Name Role Phone Maddie Kim MD Primary Care Provider [phone] Reason for Visit * Reason Onset Date Comments Hospital Follow-up 03/28/2024 Encounter Details Date Type Department Care Team ([facility] Contact Info) Description 03/28/2024 Telephone [facility] [address] [place], [place] [phone] Maddie Kim MD [address] [place], [place] [phone] Hospital Follow-up Social History Tobacco Use Types [...] from pt requesting a HDF appt. Hospital: [facility] Date of admission: 03/24/24 Discharge date: 03/27/24 Diagnosed: Hyponatremia *Send message to [place] Clinical Care Coordinators documented in this encounter Plan of Treatment Upcoming Encounters Date Type Department Care Team (Late st Contact Info) Description 07/01/2024 11:30 AM EDT Telemedicine [facility] [address] [place] [address] Maddie Kim MD [address] [place] [address] documented as of this encounter Visit Diagnoses Not on filedocumented in this encounter Additional Health Concerns Assessment Noted Time PHQ-9 Depression Total Score: 3 06/15/19 24 11:48 AM EDT documented as of this encounter Care Teams Curriculum Manager Relationship Specialty Start Date End Date Maddie Kim MD [address] [place] [address] PCP - General Family Medicine 07/12/20 Willie Gage 11/29/22 documented as of this encounter
--- OUTSIDE RECORDS SUMMARY | 2024-05-19 16:19 | XMS_ITS | Encounter Summary ---
Author Organization [employer] Address [address] [place] [address] 7 [place] [address] Care Team Providers Care Airplane Pilot Photogrammetry Name Role Phone Maddie Kim MD Primary Care Provider [phone] Reason for Visit * Reason Onset Date Comments Durable Medical Equipment 05/14/2024 DME: C CA Becki Care: Rubens Encounter Details Date Type Department Care Team ([facility] st Contact Info) Description 05/14/2024 Telephone [facility] [address], [place] [phone] Maddie Kim MD [address] [place] [address] Durable Medical Equipment (DME: MURALI Connell Care: Rubens ) Social History Tobacco Use Types Packs/Day Years [...] * Telephone Encounter - Ivanna Carlson - 05/19/2024 11:34 AM EDT Signed DME Order for Walker has been uploaded to [employer], and message has been sent to [facility] Cyl[employer]. * Telephone Encounter - Ivanna Carlson - 05/14/2024 2:19 PM EDT DME RX for Walker generated and placed on providers desk for signature. documented in this encounter Plan of Treatment Upcoming Encounters Date Type Department Care Team (Late st Contact Info) Description 07/01/2024 11:30 AM EDT Telemedicine [facility] [address] [place] [address] Maddie Kim MD [address] [place] [address] documented as of this encounter Visit Diagnoses Not on filedocumented in this encounter Additional Health Concerns Assessment Noted Time PHQ-9 Depression Total Score: 3 06/15/19 24 11:48 AM EDT documented as of this encounter Care Teams Airplane Pilot Photogrammetry Relationship Specialty Start Date End Date Maddie Kim MD [address] [place] [address] PCP - General Family Medicine 07/12/20 Willie Gage 01/17/22 documented as of this encounter
--- OUTSIDE RECORDS SUMMARY | 2024-05-19 16:19 | XMS_ITS | Encounter Summary ---
Author Organization [employer] Address [address] [place] [address] 7t [place] [address] Care Team Providers Care Trigonometry Tutor Name Role Phone Maddie Kim MD Primary Care Provider [phone] Reason for Referral * Consultation (Routine) - Closed Specialty Diagnoses / Procedures Referred By Sindi mejia Referred To Contact Nutrition Diagnoses Class 2 severe obesity with serious comorbidity and body mass index (BMI) of 39.0 to 39.9 in adult, unspecified obesity type (CMS/HCC) Maddie Kim MD [address] [place] [address] Phone: tel: fax: Referral ID Status Reason Start Date Expiration Date V isits Requested Visits Authorized [id number] Closed Consult and Treat 04/06/2023 04/05/2024 1 1 Encounter Details Date Type Department Care Team (Late st Contact Info) Description 04/06/2023 Orders Only [facility] MED[facility] [address] [place] [address] [phone] Maddie Kim MD [address] [place] [address] Class 2 severe obesity with serious comorbidity [...] Telemedicine [facility] [address] [place] [address] Maddie Kim MD [address] [place] [address] Scheduled Referrals Name Type Priority Associated Diagnoses [...] EDT Narrative 05/26/2023 3:06 PM EDT ? [facility] [place] ? [address] ?[place], [place] [address] ? Mammography Report ? Signed ? Patient: [place],Atiya ?MR#: [id number] ? : 1975 ?Acct:[id number] ? Age/Sex: 47 / F ?ADM Date: 05/04/23 ? Loc: HO.MAMMO ? Attending Dr: Maddie Kim MD ? Ordering Physician: Maddie Kim ?Results: 1Negative ? Date of Service: 05/04/23 ?Follow Up: 1 Year From Orig ?? inal Mammogram ? Procedure(s): MM tomosynthesis screening BI ?? Accession Number(s): [id number] ? cc: Maddie Kim ? EXAMINATION: ?? [...] 1503 ? DD/ 1602 ? TD/TT: ? 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 Procedure Note John Paul, Zoya - 05/26/2023 [facility] [address] [place] [address] Mammography Report Signed Patient: Zain Esparza#: [id number] : 1975Acct:[id number] Age/Sex: 47 / FADM Date: 05/04/23 Loc: MICHAEL Attending Dr: Maddie Kim MD Ordering Physician: Jaja Kimults: 1Negative Date of Service: 05/04/23Follow Up: 1 Year From Orig inal Mammogram Procedure(s): tomosynthesis screening BI Accession Number(s): [id number] cc: Maddie Kim EXAMINATION: MM SCREENING DIGITAL [...] in OV> 05/26/23 1503 DD/ 1602 TD/TT: [employer]orer [employer]: Maddie Kim MD IMG BI PROCEDURES Final [...] documented as of this encounter Care Teams Trigonometry Tutor Relationship Specialty Start Date End Date Maddie Kim MD [address] [place] [address] PCP - General Family Medicine 07/12/20 Willie Gage 01/17/22 documented as of this encounter
--- OUTSIDE RECORDS SUMMARY | 2024-05-19 16:19 | XMS_ITS | Clinical Summary ---
Author Organization Unknown Care Team Providers Care Ui Application Developer Name Role Phone MARLON AHUMADA, JEAN-PIERRE Unavailable Unavailable ENRIQUE WEINSTEINW, WINNIE Unavailable Unavailable KATINA RN, ANASTACIA Unavailable Unavailable SMILEY RN, JENNI Unavailable Unavailable JAVIER RN, GABBY Unavailable Unavaila ble Payers Payer Name Policy Type Policy Number Effective Date Expira tion Date [facility] [id number] [place] [id number] MEDICARE - [facility] [place] - [place] [id number] Problems Condition Name Condition Details Condition Category [...] 2020-02 00:00: 00 03-07 00:00 :00 No [id number] 10 mg 3 TIMES DAILY 10 mg 3 TIMES DAILY (route: oral) Med Classific ation: Locomotor System buprenorphi ne 4 mg-naloxone 1 mg sublingual film 2020-02 00:00: 00 04-05 00:00 :00 No [id number] Per instruc tions NEEDED Per instructio ns NEEDED (route: sublingual ) Med Classific ation: Chemical Dependenc y, Agents to Treat divalproex 250 mg tablet,kassandra yed release 2020-02 00:00: 00 04-05 23:59 :00 No [id number] 250 mg DAILY 250 mg DAILY (route: oral) Med Classific ation: Central Nervous System Agents divalproex ER 500 mg tablet,exte nded release 24 hr 2020-02 00:00: 00 04-05 00:00 :00 No [id number] 500 mg 2 TIMES DAILY 500 mg 2 TIMES DAILY (route: oral) Med Classific ation: Central Nervous System Agents ferrous sulfate 325 mg (65 mg iron) tablet 2020-02 00:00: 00 04-05 00:00 :00 No [id number] 1 tablet DAILY 1 tablet DAILY (route: oral) Med Classific ation: Electroly te Balance-N utritiona l Products Invega Sustenna 156 mg/mL intramuscul ar syringe 2020-02 00:00: 00 05-11 23:59 :00 No [id number] 156 mg MONTHLY 156 mg MONTHLY (route: intramuscu lar) Med Classific ation: Central Nervous System Agents levothyroxi ne 25 mcg tablet 2020-02 00:00: 00 03-05 23:59 :00 No [id number] 25 mcg DAILY 25 mcg DAILY (route: oral) Med Classific ation: Endocrine lisinopril 5 mg tablet 2020-02 00:00: 00 11-21 23:59 :00 No [id number] 5 mg DAILY 5 mg DAILY (route: oral) Med Classific ation: Cardiovas cular Therapy Agents nicotine (polacrilex ) 4 mg gum 2020-02 00:00: 00 09-12 23:59 :00 No [id number] 4 gum NEEDED 4 gum NEEDED (route: buccal) Med Classific ation: Chemical Dependenc y, Agents to Treat nicotine 21mg/24hr-1 4mg/24hr-7m g/24hr daily transderm patches,seq uentl 2020-02 00:00: 00 09-12 23:59 :00 No [id number] 21 patch NEEDED 21 patch NEEDED (route: transderma l) Med Classific ation: Chemical Dependenc y, Agents to Treat nystatin 500,000 unit tablet 2020-02 00:00: 00 04-05 00:00 :00 No [id number] In unit 4 TIMES DAILY [id number] In unit 4 TIMES DAILY (route: oral) Med Classific ation: Anti-Infe ctive Agents omeprazole 20 mg tablet,kassandra yed release 2020-02 00:00: 00 Yes [id number] 20 mg DAILY 20 mg DAILY (route: oral) Med Classific ation: Gastroint estinal Therapy Agents prazosin 5 mg capsule 2020-02 00:00: 00 02-14 23:59 :00 No [id number] 5 capsule BEDTIME 5 capsule BEDTIME (route: oral) Med Classific ation: Cardiovas cular Therapy Agents trazodone 50 mg tablet 2020-02 00:00: 00 01-17 23:59 :00 No [id number] 50 mg NEEDED 50 mg NEEDED (route: oral) Med Classific ation: Central Nervous System Agents albuterol sulfate HFA 90 mcg/actuati on aerosol inhaler 04-05 00:00: 00 Yes [id number] 2 puff NEEDED 2 puff NEEDED (route: inhalation ) Med Classific ation: Respirato ry Therapy Agents Aspercreme with Aloe 10 % topical 04-05 00:00: 00 09-12 23:59 :00 No [id number] Per instruc tions NEEDED Per instructio ns NEEDED (route: topical) Med Classific ation: Dermatolo gical cyclobenzap rine 5 mg tablet 04-05 00:00: 00 01-17 23:59 :00 No [id number] 5 mg NEEDED 5 mg NEEDED (route: oral) Med Classific ation: Locomotor System Depakote 500 mg tablet,kassandra yed release 04-05 00:00: 00 05-06 23:59 :00 No [id number] 1000 mg 2 TIMES DAILY 1000 mg 2 TIMES DAILY (route: oral) Med Classific ation: Central Nervous System Agents diphenhydra mine 25 mg capsule 04-05 00:00: 00 06-01 23:59 :00 No [id number] 50 mg NEEDED 50 mg NEEDED (route: oral) Med Classific ation: Respirato ry Therapy Agents hydroxyzine HCl 50 mg tablet 2-15 00:00: 00 06-01 23:59 :00 No [id number] 50 mg 3 TIMES DAILY 50 mg 3 TIMES DAILY (route: oral) Med Classific ation: Central Nervous System Agents naltrexone 50 mg tablet 2-15 00:00: 00 06-01 23:59 :00 No [id number] 50 mg DAILY 50 mg DAILY (route: oral) Med Classific ation: Antidotes and other Reversal Agents Narcan 4 mg/actuatio n nasal spray 2-15 00:00: 00 06-01 23:59 :00 No [id number] Per instruc tions NEEDED Per instructio ns NEEDED (route: nasal) Med Classific ation: Antidotes and other Reversal Agents pyridoxine (vitamin B6) 25 mg tablet 2-15 00:00: 00 06-01 23:59 :00 No [id number] 25 mg DAILY 25 mg DAILY (route: oral) Med Classific ation: Electroly te Balance-N utritiona l Products Invega Sustenna 234 mg/1.5 mL intramuscul ar syringe 3-24 00:00: 00 Yes [id number] Per instruc tions MONTHLY Per instructio ns MONTHLY (route: intramuscu lar) Med Classific ation: Central Nervous System Agents Invega Sustenna 234 mg/1.5 mL intramuscul ar syringe 8-14 00:00: 00 11-30 23:59 :00 No [id number] 234 mg MONTHLY 234 mg MONTHLY (route: intramuscu lar) Med Classific ation: Central Nervous System Agents Celebrex 200 mg capsule 2021-02 0-26 00:00: 00 03-20 23:59 :00 No [id number] 200 mg 2 TIMES DAILY 200 mg 2 TIMES DAILY (route: oral) Alternate Route: NONE. Med Classific ation: Analgesic , Anti-infl ammatory or Antipyret ic Celebrex 200 mg capsule 1-30 00:00: 00 01-10 23:59 :00 No [id number] 200 mg DAILY 200 mg DAILY (route: oral) Alternate Route: NONE. Med Classific ation: Analgesic , Anti-infl ammatory or Antipyret ic docusate sodium 100 mg capsule 30 00:00: 00 01-29 23:59 :00 No [id number] 1 capsule 2 TIMES DAILY 1 capsule 2 TIMES DAILY (route: oral) Alternate Route: NONE. Med Classific ation: Gastroint estinal Therapy Agents Eliquis 2.5 mg tablet 30 00:00: 00 09-12 23:59 :00 No [id number] 1 tablet 2 TIMES DAILY 1 tablet 2 TIMES DAILY (route: oral) Med Classific ation: Hematolog ical Agents oxycodone 5 mg tablet 03-20 00:00: 00 04-18 23:59 :00 No [id number] Per instruc tions DIRECTED Per instructio ns DIRECTED (route: oral) Alternate Route: NONE. Med Classific ation: Analgesic , Anti-infl ammatory or Antipyret ic tramadol 50 mg tablet 03-20 00:00: 00 04-18 23:59 :00 No [id number] Per instruc tions DIRECTED Per instructio ns DIRECTED (route: oral) Med Classific ation: Analgesic , Anti-infl ammatory or Antipyret ic gabapentin 300 mg capsule 3-29 00:00: 00 01-10 23:59 :00 No [id number] 1 capsule 3 TIMES DAILY 1 capsule 3 TIMES DAILY (route: oral) Med Classific ation: Central Nervous System Agents cyclobenzap rine 5 mg tablet 7-27 00:00: 00 01-10 23:59 :00 No [id number] 1 tablet 3 TIMES DAILY 1 tablet 3 TIMES DAILY (route: oral) Med Classific ation: Locomotor System baclofen 10 mg tablet 2022-02 1-24 00:00: 00 03-30 23:59 :00 No [id number] 1 tablet DIRECTED 1 tablet DIRECTED (route: oral) Med Classific ation: Locomotor System docusate sodium 100 mg capsule 2022-02 00:00: 00 Yes [id number] 1 capsule NEEDED 1 capsule NEEDED (route: oral) Med Classific ation: Gastroint estinal Therapy Agents acetaminoph en 300 mg-codeine 30 mg tablet 2-09 00:00: 00 05-15 23:59 :00 No [id number] 1 tablet 3 TIMES DAILY 1 tablet 3 TIMES DAILY (route: oral) Med Classific ation: Analgesic , Anti-infl ammatory or Antipyret ic Paxlovid 300 mg (150 mg x 2)-100 mg tablets in a dose pack 03-30 00:00: 00 04-03 23:59 :00 No [id number] 3 tablet 2 TIMES DAILY 3 tablet 2 TIMES DAILY (route: oral) Med Classific ation: Anti-Infe ctive Agents tizanidine 4 mg tablet 03-30 00:00: 00 01-03 23:59 :00 No [id number] 1 tablet 3 TIMES DAILY 1 tablet 3 TIMES DAILY (route: oral) Med Classific ation: Locomotor System Depakote 500 mg tablet,kassandra yed release 3- 00:00: 00 03-31 23:59 :00 No [id number] 1000 mg 2 TIMES DAILY 1000 mg 2 TIMES DAILY (route: oral) Med Classific ation: Central Nervous System Agents multivitami n tablet 06-03 00:00: 00 04-21 23:59 :00 No [id number] 1 tablet DIRECTED 1 tablet DIRECTED (route: oral) Med Classific ation: Electroly te Balance-N utritiona l Products gabapentin 300 mg capsule 07-10 00:00: 00 04-24 23:59 :00 No [id number] 2 capsule 3 TIMES DAILY 2 capsule 3 TIMES DAILY (route: oral) Med Classific ation: Central Nervous System Agents paliperidon e ER 1.5 mg tablet,exte nded release 24 hr 07-10 00:00: 00 11-22 23:59 :00 No [id number] 1 tablet DAILY 1 tablet DAILY (route: [...] AWARENESS FOR SAFETY AND WILL NOTIFY CLINICAL KICK BOXER AND PHYSICIAN/PROVIDER WITH ANY CHANGE IN CONDITION. [code = SKILLED NURSE WILL MAINTAIN SITUATIONAL AWARENESS FOR SAFETY AND WILL NOTIFY CLINICAL KICK BOXER AND PHYSICIAN/PROVIDER WITH ANY CHANGE IN CONDITION.] [...] CARE WILL BE ESTABLISHED THAT MEETS PATIENT'S CARE HOME NEEDS AND INCLUDES PATIENT GOAL FOR HOME [...] End Date/Time Encounter Type Admission Type [facility] Care Department Encounter ID Discharge Date Discharge Status Discharge Condition Discharge Reason Percent Goals Met 2022-01-17 00:00:00 2024-07-04 00:00:00 Outpatient RECERTIFIC ATION GABBY HERRERA [facility] [id number] 24.00
--- OUTSIDE RECORDS SUMMARY | 2024-05-19 16:19 | XMS_ITS | Encounter Summary ---
Author Organization [facility] Address [address] [place] [address] Care Team Providers Care Cloth Winder Name Role Phone Darya Hamilton MD Primary Care Provider Unava nel [facility], Pcp Primary Care Provider Unavailabl e Darya Hamilton MD Primary Care Provider Unava Lewis Galvan MD Primary Care Provider Un available Dipesh Kern MD Primary Care Provide r Unavailable Becca Hinkle MD Primary Care Provider Unavailable Reason for Visit * Reason Onset Date Comments Faxed Order 01/07/2014 [facility] Encounter Details Date Type Department Care Team Description 01/07/2014 Telephone Adult Medicine [address] [address] Darya Hamilton MD Faxed Order ([facility]) Social History Tobacco Use Types Packs/Day Years Used Date Smoking Tobacco: Every Day Cigarettes 1 Smokeless Tobacco: Never Comments:started smoking at 14 Alcohol Use Standard Drinks/Week Comments No 0 (1 standard drink = 0.6 oz pur e alcohol) Sex Assigned at Date Recorded Not on file documented as of this encounter Miscellaneous Notes * Telephone Encounter - Kadie Casarez - 01/07/2014 4:18 PM EST Please review, sign, and fax back home health ceritificate and plan of care to [facility] [phone]. documented in this encounter Plan of Treatment Not on file documented as of this encounter Visit Diagnoses Not on filedocumented in this encounter Care Teams Cloth Winder Relationship Specialty Start Date End Date Darya Hamilton MD PCP - General 06/30/10 03/15/15 [facility]cp PCP - General Internal Medicine 03/16/15 06/20/16 Darya Hamilton MD PCP - General Internal Medicine 06/21/16 11/12/16 Lewis Espino MD PCP - General Internal Medicine 11/13/16 Dipesh Kern MD PCP - General Internal Medicine [facility] - [facility] Medicine 03/23/21 documented as of this encounter
--- OUTSIDE RECORDS SUMMARY | 2024-05-19 16:19 | XMS_ITS | Encounter Summary ---
Author Organization [facility] Address [address] [place] [address] Care Team Providers Care Director Financial Systems Name Role Phone Darya Hamilton MD Primary Care Provider Ronak Beasley, Pcp Primary Care Provider Unavailabl e Darya Hamilton MD Primary Care Provider Lewis Birmingham MD Primary Care Provider Un available Dipesh Kern MD Primary Care Provide r Unavailable Becca Hinkle MD Primary Care Provider Unavailable Encounter Details Date Type Department Care Team Description 12/31/2012 Business Doc Medical Records [address] [place] [id number] Abstract, Provider Social History Tobacco Use Types [...] on filedocumented in this encounter Care Teams Director Financial Systems Relationship Specialty Start Date End Date Darya Hamilton MD PCP - General 06/30/10 03/15/15 [facility], Pcp PCP - General Internal Medicine 03/16/15 06/20/16 Darya Hamilton MD PCP - General Internal Medicine 06/21/16 11/12/16 Lewis Espino MD PCP - General Internal Medicine 11/13/16 Dipesh Kern MD PCP - General Internal Medicine 10/15/18 Becca Hinkle MD PCP - General Internal Medicine 03/23/21 documented as of this encounter
--- OUTSIDE RECORDS SUMMARY | 2024-05-19 16:19 | XMS_ITS | Encounter Summary ---
Author Organization [facility] Address [address] [place] [address] Care Team Providers Care Farm Owner Operator Name Role Phone Community, Pcp Primary Care Provider UnavailDarya Ness MD Primary Care Provider Unava Lewis Galvan MD Primary Care Provider Un available Dipesh Kern MD Primary Care Provide r Unavailable Becca Hinkle MD Primary Care Provider Unavailable Encounter Details Date Type Department Care Team Description 12/04/2015 Release of Information Medical Records [address] [place] [id number] Abstract, Provider Social History Tobacco Use Types [...] on filedocumented in this encounter Care Teams Farm Owner Operator Relationship Specialty Start Date End Date Community, [...]
--- OUTSIDE RECORDS SUMMARY | 2024-05-19 16:19 | XMS_ITS | Encounter Summary ---
Author Organization [facility] Address [address] [place] [address] Care Team Providers Care Physical Therapy Teacher Name Role Phone Darya Hamilton MD Primary Care Provider Ronak Beasley, Pcp Primary Care Provider Unavailabl e Darya Hamilton MD Primary Care Provider Unava Lewis Galvan MD Primary Care Provider Un available Dipesh Kern MD Primary Care Provide r Unavailable Becca Hinkle MD Primary Care Provider Unavailable Reason for Visit * Reason Onset Date Comments Note, Other 12/17/2012 [facility] Encounter Details Date Type Department Care Team Description 12/17/2012 Telephone Adult Medicine [address] [address] Darya Hamilton MD Note, Other ([facility]) Social History Tobacco Use Types Packs/Day Years Used Date Smoking Tobacco: Every Day Cigarettes 1 Smokeless Tobacco: Never Comments:started smoking at 14 Alcohol Use Standard Drinks/Week Comments No 0 (1 standard drink = 0.6 oz pur e alcohol) Sex Assigned at Date Recorded Not on file documented as of this encounter Miscellaneous Notes * Telephone Encounter - Carley Santos - 12/17/2012 4:21 PM EDT Please sign Supplemental Orders from [facility] documented in this encounter Plan of Treatment Not on file documented as of this encounter Visit Diagnoses Not on filedocumented in this encounter Care Teams Physical Therapy Teacher Relationship Specialty Start Date End Date Darya [...]
--- OUTSIDE RECORDS SUMMARY | 2024-05-19 16:19 | XMS_ITS | Encounter Summary ---
Author Organization [employer] Address [address] [facility] 7t [place] [address] Care Team Providers Care Speech Therapist Technician Name Role Phone Maddie Kim MD Primary Care Provider [phone] Reason for Visit * Reason Comments Med Refill Encounter Details Date Type Department Care Team ([facility] st Contact Info) Description 04/12/2023 Refill [facility] [address] [place] [address] [phone] Isac Gonzalez MD [address] [place], [place] [phone] Chronic bilateral low back pain without sciatica [...] Info) Description 07/01/2024 11:30 AM EDT Telemedicine [facility] [address] [place] [phone] Maddie Kim MD [address] [place] [address] documented as of this encounter Visit Diagnoses Diagnosis Chronic bilateral low back pain without sciatica documented in this encounter Additional Health Concerns Assessment Noted Time PHQ-9 Depression Total Score: 0 05/30/19 23 3:26 PM EDT documented as of this encounter Care Teams Speech Therapist Technician Relationship Specialty Start Date End Date Maddie Kim MD [address] [place] [address] PCP - General Family Medicine 07/12/20 Willie Gage 01/17/22 documented as of this encounter
--- OUTSIDE RECORDS SUMMARY | 2024-05-19 16:19 | XMS_ITS | Encounter Summary ---
Author Organization [employer] Address [address] [facility] 7t [place] [address] Care Team Providers Care Wink Cutter Operator Name Role Phone Maddie Kim MD Primary Care Provider [phone] Reason for Visit * Reason Onset Date Comments Med Refill 05/10/2023 Encounter Details Date Type Department Care Team ([facility] st Contact Info) Description 05/10/2023 Refill [facility] [address] [place], [place] [phone] Maddie Kim MD [address] [place], [place] [phone] Chronic bilateral low back pain without sciatica [...] Telemedicine [facility] [address] [place] [address] Maddie Kim MD [address] [place] [address] documented as of this encounter Visit Diagnoses Diagnosis Chronic bilateral low back pain without sciatica documented in this encounter Additional Health Concerns Assessment Noted Time PHQ-9 Depression Total Score: 0 05/30/19 23 3:26 PM EDT documented as of this encounter Care Teams Wink Cutter Operator Relationship Specialty Start Date End Date Maddie Kim MD [address] [place], [place] [phone] PCP - General Family Medicine 07/12/20 Willie Gage 01/17/22 documented as of this encounter
--- OUTSIDE RECORDS SUMMARY | 2024-05-19 16:19 | XMS_ITS | Encounter Summary ---
Author Organization [employer] Address [address] [facility] 7t [place] [address] Care Team Providers Care Brewer Helper Name Role Phone Maddie Kim MD Primary Care Provider [phone] Reason for Visit * Reason Comments Med Refill Encounter Details Date Type Department Care Team ([facility] st Contact Info) Description 03/18/2023 Refill [facility] [address] [place] [address] [phone] Maddie Kim MD [address] [place] [address] [phone] Social History Tobacco Use Types Packs/Day Years [...] 11:30 AM EDT Telemedicine [facility] [address] [place] [address] Maddie Kim MD [address] [place] [address] documented as of this encounter Visit Diagnoses Not on filedocumented in this encounter Additional Health Concerns Assessment Noted Time PHQ-9 Depression Total Score: 0 05/30/19 23 3:26 PM EDT documented as of this encounter Care Teams Brewer Helper Relationship Specialty Start Date End Date Maddie Kim MD [address] [place] [address] PCP - General Family Medicine 07/12/20 Willie Gage 01/17/22 documented as of this encounter
--- OUTSIDE RECORDS SUMMARY | 2024-05-19 16:19 | XMS_ITS | Encounter Summary ---
Author Organization [employer] Address [address] [facility] 7t [place] [address] Care Team Providers Care Coverstitch Elastic Attacher Name Role Phone Maddie Kim MD Primary Care Provider [phone] Reason for Visit * Reason Onset Date Comments Med Refill 02/14/2023 Encounter Details Date Type Department Care Team ([facility] Contact Info) Description 02/14/2023 Refill [facility] [address] [place] [address] [phone] Maddie Kim MD [address] [place], [place] [phone] Social History Tobacco Use Types Packs/Day Years [...] Info) Description 07/01/2024 11:30 AM EDT Telemedicine [facility] MEDICINE [address] [place] [address] Maddie Kim MD [address] [place], [place] [phone] documented as of this encounter Visit Diagnoses Not on filedocumented in this encounter Additional Health Concerns Assessment Noted Time PHQ-9 Depression Total Score: 0 05/30/19 23 3:26 PM EDT documented as of this encounter Care Teams Coverstitch Elastic Attacher Relationship Specialty Start Date End Date Maddie Kim MD [address] [place] [address] [phone] PCP - General Family Medicine 07/12/20 Willie Gage 01/17/22 documented as of this encounter
--- OUTSIDE RECORDS SUMMARY | 2024-05-19 16:19 | XMS_ITS | Encounter Summary ---
Author Organization [facility] Address [address] [place] [address] Care Team Providers Care Treating Plant Supervisor Name Role Phone Dipesh Kern MD Primary Care Provide r Unavailable Becca Hinkle MD Primary Care Provider Unavailable Encounter Details Date Type Department Care Team Description 10/17/2018 [facility] Medical Records [address] [place] [address] Abstract, Provider Social History Tobacco Use Types [...] on filedocumented in this encounter Care Teams Treating Plant Supervisor Relationship Specialty Start Date End Date Dipesh Kern MD PCP - General Internal Medicine 10/15/18 Becca Hinkle MD PCP - General Internal Medicine 03/23/21 documented as of this encounter
--- OUTSIDE RECORDS SUMMARY | 2024-05-19 16:19 | XMS_ITS | Encounter Summary ---
Author Organization [facility] Address [address] [place] [address] Care Team Providers Care Metal Furniture Repairer Name Role Phone Darya Hamilton MD Primary Care Provider Ronak Beasley, Pcp Primary Care Provider Unavailabl e Darya Hamilton MD Primary Care Provider Lewis Birmingham MD Primary Care Provider Un available Dipesh Kern MD Primary Care Provide r Unavailable Becca Hinkle MD Primary Care Provider Unavailable Encounter Details Date Type Department Care Team Description 09/11/2012 [facility] Medical Records [address] [place] [address] Kin Funes MD Social History Tobacco Use Types Packs/Day [...] on filedocumented in this encounter Care Teams Metal Furniture Repairer Relationship Specialty Start Date End Date Darya Hamilton MD PCP - General 06/30/10 03/15/15 [facility], Pcp PCP - General Internal Medicine 03/16/15 06/20/16 Darya Hamilton MD PCP - General Internal Medicine 06/21/16 11/12/16 Lewis Espino MD PCP - General Internal Medicine 11/13/16 Dipesh Kern MD PCP - General Internal Medicine 10/15/18 [place]-Becca Callaway MD PCP - General Internal Medicine 03/23/21 documented as of this encounter
--- OUTSIDE RECORDS SUMMARY | 2024-05-19 16:19 | XMS_ITS | Patient Health Record ---
Author Organization [facility] Address [address] [place] [address] Care Team Providers Care Boxing Instructor Name Role Phone Maya Wu Primary Care Provider Reshma Sky Unavailable [phone] Allergies Allergen (clinical drug ingredient) Drug/Non Drug [...] Order Date *Liver Function Test (LFT) 06/06/2022 Next Appt Details Provider Name:Reshma Rena palomino, 07/11/2024 12:30:00 PM, [address] [place] [address], [id number], Insurance Providers Payer Name Payer Address Payer Phone Subscriber Number Group Number Insured Name Patient Relationship to Insured Coverage Start Date Coverage End Date [facility] [employer] Claims [address] [place] [id number] Atiya Dotson Self - patient is the insured Medical (General) History Medical History History ICD Code Anxiety Arthritis Back,Hip,and Knee pain Depression Gall bladder problems High blood pressure Reflux ( GERD) thyroid ulcer Chicken pox Joint implants/screws Surgical History Surgery Date(Month/Year) gastric bypass 2009 bowel obstruction 2019 Right knee replacement 03/13
--- OUTSIDE RECORDS SUMMARY | 2024-05-19 16:19 | XMS_ITS | Encounter Summary ---
Author Organization [facility] Address [address] [place] [address] Care Team Providers Care Medical Administrative Technician Name Role Phone Darya Hamilton MD Primary Care Provider Ronak Beasley, Pcp Primary Care Provider Unavailabl e Darya Hamilton MD Primary Care Provider Lewis Birmingham MD Primary Care Provider Un available Dipesh Kern MD Primary Care Provide r Unavailable Becca Hinkle MD Primary Care Provider Unavailable Encounter Details Date Type Department Care Team Description 09/29/2012 Night Triage Doc Medical Records [address] [place] [address] Abstract, Provider Social History Tobacco Use Types [...] on filedocumented in this encounter Care Teams Medical Administrative Technician Relationship Specialty Start Date End Date Darya Hamilton MD PCP - General 06/30/10 03/15/15 [facility], Pcp PCP - General Internal Medicine 03/16/15 06/20/16 Darya Hamilton MD PCP - General Internal Medicine 06/21/16 11/12/16 Lewis Espino MD PCP - General Internal Medicine 11/13/16 Dipehs Kern MD PCP - General Internal Medicine 10/15/18 Becca Hinkle MD PCP - General Internal Medicine 03/23/21 documented as of this encounter
--- OUTSIDE RECORDS SUMMARY | 2024-05-19 16:19 | XMS_ITS | Encounter Summary ---
Author Organization [employer] Address [address] [facility] 7t [place] [address] Care Team Providers Care Equipment Maint Tech Name Role Phone Maddie Kim MD Primary Care Provider [phone] Reason for Visit * Reason Onset Date Comments Med Refill 03/19/2023 Encounter Details Date Type Department Care Team ([facility] Contact Info) Description 03/19/2023 Telephone [facility] MEDICINE [address] [place] [address] Maddie Kim MD [address] [place], [place] [phone] Med Refill Social History Tobacco Use Types [...] Pt agrees. MD Maddie Saravia RN; [facility] Team Nurses Caller: Unspecified (2 weeks ago) I wrote her a work excuse extending her time for remote work until 04/05/23 * Telephone Encounter - Maddie Crawford RN - 04/02/2023 3:02 PM EST Images from the original note were not included. Triage call regarding Pt portal message below. Pt continues to have symptoms of Covid. Pt was seen in [facility] 03/29/[address] Gonzalez and dx of [...] [facility] 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-19 by Doctor (or MANAGER DOMESTIC/PA) and Mild Symptoms * General Care Advice for COVID-19 Symptoms * Humidifier * Coughing Spells * Pain and Fever Medicines * Mild Stomach and Intestinal Symptoms During COVID-19 Illness [facility] Clinial Support (supporting Lorrie Alaniz [...] EDT Telemedicine [facility] MEDICINE [address] [place] [address] Maddie Kim MD [address] [place] [address] documented as of this encounter Visit Diagnoses Not on filedocumented in this encounter Additional Health Concerns Assessment Noted Time PHQ-9 Depression Total Score: 0 05/30/19 23 3:26 PM EDT documented as of this encounter Care Teams Equipment Maint Tech Relationship Specialty Start Date End Date Maddie Kim MD [address] [place] [address] PCP - General Family Medicine 07/12/20 Willie Gage 01/17/22 documented as of this encounter
--- OUTSIDE RECORDS SUMMARY | 2024-05-19 16:19 | XMS_ITS | Encounter Summary ---
Author Organization [employer] Address [address] [place] [address] 7t [place] [address] Care Team Providers Care Frame And Scrap Crusher Name Role Phone Maddie Kim MD Primary Care Provider [phone] Reason for Visit * Reason Onset Date Comments Prior Authorization 05/19/2024 Encounter Details Date Type Department Care Team ([facility] Contact Info) Description 05/19/2024 Telephone [facility] MEDICINE [address] [place], [place] [phone] Maddie Kim MD [address] [place], [place] [phone] Prior Authorization Social History Tobacco Use Types Packs/Day Years [...] encounter Miscellaneous Notes * Telephone Encounter - Jose A Esteban - 05/19/2024 9:07 AM EDT Tc from pt starting that she talked with her pharmacy and they stated that PCP filled out the PA form wrong and that they had to send it back over so that it can be re done. Pt states that they were informed by the pharmacy that they were gonna re fax it over. Contact pt at [phone] documented in this encounter Plan of Treatment Upcoming Encounters Date Type Department Care Team (Late st Contact Info) Description 07/01/2024 11:30 AM EDT Telemedicine [facility] MEDICINE [address] [place] [address] Maddie Kim MD [address] [place] [address] documented as of this encounter Visit Diagnoses Not on filedocumented in this encounter Additional Health Concerns Assessment Noted Time PHQ-9 Depression Total Score: 3 06/15/19 24 11:48 AM EDT documented as of this encounter Care Teams Frame And Scrap Crusher Relationship Specialty Start Date End Date Maddie Kim MD [address] [place] [phone] PCP - General Family Medicine 5/24/21 Willie Gage 01/17/22 documented as of this encounter
--- OUTSIDE RECORDS SUMMARY | 2024-05-19 16:19 | XMS_ITS | Encounter Summary ---
Author Organization [employer] Address [address] [facility] 7t [place] [address] Care Team Providers Care Mail Examiner Name Role Phone Maddie Kim MD Primary Care Provider [phone] Reason for Visit * Reason Comments Med Refill Encounter Details Date Type Department Care Team ([facility] st Contact Info) Description 04/12/2023 Refill [facility] WALK[facility]IN CENTER [address] [place] [address] [phone] Isac Gonzalez MD [address] [place], [place] [phone] Chronic bilateral low back pain without sciatica [...] Info) Description 07/01/2024 11:30 AM EDT Telemedicine [facility] MEDICINE [address] [place] [phone] Maddie Kim MD [address] [place] [address] documented as of this encounter Visit Diagnoses Diagnosis Chronic bilateral low back pain without sciatica documented in this encounter Additional Health Concerns Assessment Noted Time PHQ-9 Depression Total Score: 0 05/30/19 23 3:26 PM EDT documented as of this encounter Care Teams Mail Examiner Relationship Specialty Start Date End Date Maddie Kim MD [address] [place] [address] PCP - General Family Medicine 07/12/20 Willie Gage 01/17/22 documented as of this encounter
--- OUTSIDE RECORDS SUMMARY | 2024-05-19 16:19 | XMS_ITS | Encounter Summary ---
Author Organization [employer] Address [address] [facility] 7t [place] [address] Care Team Providers Care Denture Model Maker Name Role Phone Maddie Kim MD Primary Care Provider [phone] Reason for Visit * Reason Comments Med Refill Encounter Details Date Type Department Care Team ([facility] st Contact Info) Description 04/05/2023 Refill [facility] WALK[facility]IN CENTER [address] [place] [address] [phone] Isac Gonzalez MD [address] [place] [address] [phone] Chronic bilateral low back pain without sciatica [...] - 04/06/2023 12:46 PM EST TC to [facility] pharmacy, T3 RX written 03/29/23 [...] Info) Description 07/01/2024 11:30 AM EDT Telemedicine [facility] MEDICINE [address] [place] [address] Maddie Kim MD [address] [place] [address] documented as of this encounter Visit Diagnoses Diagnosis Chronic bilateral low back pain without sciatica documented in this encounter Additional Health Concerns Assessment Noted Time PHQ-9 Depression Total Score: 0 05/30/19 23 3:26 PM EDT documented as of this encounter Care Teams Denture Model Maker Relationship Specialty Start Date End Date Maddie Kim MD [address] [place] [address] PCP - General Family Medicine 07/12/20 Willie Gage 01/17/22 documented as of this encounter
--- OUTSIDE RECORDS SUMMARY | 2024-05-19 16:19 | XMS_ITS | Encounter Summary ---
Author Organization [facility] Address [address] [place] [address] Care Team Providers Care Regional Sales Manager Name Role Phone Darya Hamilton MD [...] Details Date Type Department Care Team Description 01/14/2010 Night Triage Doc Medical Records [address] [place] [address] Abstract, Provider Social History Tobacco Use Types Packs/Day Years Used Date Smoking Tobacco: Every Day Cigarettes 1 Alcohol Use Standard Drinks/Week Comments No 0 (1 standard drink = 0.6 oz pur e alcohol) Sex Assigned at Date Recorded Not on file documented as of this encounter Plan of Treatment Not on file documented as of this encounter Visit Diagnoses Not on filedocumented in this encounter Care Teams Regional Sales Manager Relationship Specialty Start Date End Date Darya Hamilton MD PCP - General 06/30/10 03/15/15 Becca Hinkle MD PCP - General 04/22/0806/29 [facility], Pcp PCP - General Internal Medicine 03/16/15 06/20/16 Darya Hamilton MD PCP - General Internal Medicine 06/21/16 11/12/16 Lewis Espino MD PCP - General Internal Medicine 11/13/16 Dipesh Kern MD PCP - General Internal Medicine 10/15/18 [place]-Becca Callaway MD PCP - General Internal Medicine 03/23/21 documented as of this encounter
--- OUTSIDE RECORDS SUMMARY | 2024-05-19 16:20 | XMS_ITS | Data Portability ---
Author Organization [place] [facility] Address [address] [place] [address] Care Team Providers Care Engagement Lead Name Role Phone ALEXIS RANGEL Primary Care Provider [phone] ALEXIS RANGEL Referring Provider Assessment Encounter Date [...] By Organization Details Last Modified Time 07/24/2019 [id number] FINAL Reason: GI BLEEDING EXAM# DEPT/EXAM EXAM DATE TIME [id number] CCT - Angio Abd Plevis W-WO Contrast [...] of constipation. Report Read by: ANTONINO WEBSTER [id number] on Jun 06 2019 4:55P Transcribed by: on Jun 06 2019 4:44P Report Electronically Signed by: DR. ANTONINO WEBSTER on: Jun 06 2019 4:55P [id number] [email or web address] Not available 07/24/2019 14:04:23 Reason for Referral None Reported. Problems Name Problem SNOMED Code Status Onset Date Resolution Date Notes Provider Name and Address Organization Details Recorded Time Diarrhea 08389128 Active 2019 MD María Elena Joe [address], [place], [phone], [facility] - [facility] Endoscopy 0 14:09:16 Hematochezia 149947956 Active 2019 MD María Elena Joe [address], [place], [address], [facility] Endoscopy 0 14:09:25 Problem Notes None recorded. Medical Equipment None Reported. Allergies Allergen ID Allergen Name Allergen Category Reaction Reaction Severity Criticality Documentation Date Start Date Code Code System Note Provider Name and Address Organization Details Recorded Time 22344 Product containin g penicilli n (product) medicatio n Not available Not available Not available 07/24/2019 39217 8001 SNOMED MD María Elena Joe [address], [place], [address], [facility] Endoscopy 0 14:04:50 [address]706 Dilaudid medicatio n Not available Not available Not available 07/24/2019 05944 3 RxNorm MD María Elena Joe [address], [place], [phone], [facility] Endoscopy 0 [...] MD [address], [place], [address], [facility] - [facility] Endoscopy 07/24/2019 14:06:56 What Is [...] SNOMED-CT Code Diagnosis ICD10 Code Diagnosis Note [id number] Gulshan Lowry MD [facility] [address] [place] [phone] 07/24/2019 08:51:48 07/28/2019 10:40:36 Hematochezia [id number] K92.1 Chronic diarrhea 7866941 09 K52.9 Health Concerns Section Related Observation LastModified by Organization Detai ls LastModified Time None Recorded Concern Status LastModified by Organization Details LastModified Time None Recorded Advance Directives Directive None Recorded Payers Encounter Date Sequence Insurance Name Policy Number Policy Fernandez Covered Member ID Fernandez Member ID Guarantor Name 07/24/2019 1 [place] [employer] Atiya Y [place] [id number] Atiya Y Isaias 07/24/2019 2 [place] [facility] Atiya Esparza [id number] Atiya Esparza Notes Date Note Type Note [...] abdominal pain as well. Gulshan Lowry MD [address] [place] [address],[address], [facility] [place], [address], [facility] Endoscopy 07/24/2019 14:21:54 OBGyn Episode No OBEpisode recorded.
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
--- OUTSIDE RECORDS SUMMARY | 2024-05-19 16:20 | XMS_ITS | Encounter Summary ---
Author Organization [facility] Address [address] [place] [address] Care Team Providers Care Metal And Plastic Heater Name Role Phone Darya Hamilton MD Primary Care Provider Ronak Beasley, Pcp Primary Care Provider Unavailabl e Darya Hamilton MD Primary Care Provider Unava Lewis Galvan MD Primary Care Provider Un available Dipesh Kern MD Primary Care Provide r Unavailable Becca Hinkle MD Primary Care Provider Unavailable Reason for Visit * Reason Onset Date Comments Faxed Order 12/30/2014 Encounter Details Date Type Department Care Team Description 12/30/2014 Telephone Adult Medicine [address] [address] Darya Hamilton MD Faxed Order Social History [...] encounter Miscellaneous Notes * Telephone Encounter - Juliane Jackson - 12/30/2014 3:35 PM EST Supplemental orders form. documented in this encounter Plan of Treatment Not on file documented as of this encounter Visit Diagnoses Not on filedocumented in this encounter Care Teams Metal And Plastic Heater Relationship Specialty Start Date End Date Darya [...]
--- OUTSIDE RECORDS SUMMARY | 2024-05-19 16:20 | XMS_ITS | Encounter Summary ---
Author Organization [employer] Address [address] [place] [address] 7t [place] [address] Care Team Providers Care Transmission Operator Name Role Phone Maddie Kim MD Primary Care Provider [phone] Encounter Details Date Type Department Care Team ([facility] Contact Info) Description 04/11/[address] [facility] [address] [place] [address] [phone] Maddie Kim MD [address] [place] [address] [phone] Social History Tobacco Use Types Packs/Day Years [...] Info) Description 07/01/2024 11:30 AM EDT Telemedicine [facility] [address] [place] [address] [phone] Maddie Kim MD [address] [place] [address] [phone] documented as of this encounter Visit Diagnoses Not on filedocumented in this encounter Care Teams Transmission Operator Relationship Specialty Start Date End Date Maddie Kim MD [address] [place] [address] PCP - General Family Medicine 07/12/20 Willie Gage 01/17/22 documented as of this encounter
--- OUTSIDE RECORDS SUMMARY | 2024-05-19 16:20 | XMS_ITS | Encounter Summary ---
Author Organization [employer] Address [address] [place] [address] 7t [place] [address] Care Team Providers Care Certified Welder Name Role Phone Maddie Kim MD Primary Care Provider [phone] Reason for Visit * Reason Onset Date Comments Durable Medical Equipment 03/02/2022 Encounter Details Date Type Department Care Team ([facility] st Contact Info) Description 03/02/2022 Telephone [facility] [address] [place] [phone] Shayna Pritchett, MAJO Durable Medical Equipment Social [...] send to L&C Please contact pt at [phone] documented in this encounter Plan of Treatment Upcoming Encounters Date Type Department Care Team (Late st Contact Info) Description 07/01/2024 11:30 AM EDT Telemedicine [facility] [address] [place] [address] Maddie Kim MD [address] [place], [place] [phone] documented as of this encounter Visit Diagnoses Not on filedocumented in this encounter Care Teams Certified Welder Relationship Specialty Start Date End Date Maddie Kim MD [address] [place] [address] PCP - General Family Medicine 07/12/20 Willie Gage 01/17/22 documented as of this encounter
--- OUTSIDE RECORDS SUMMARY | 2024-05-19 16:20 | XMS_ITS | Encounter Summary ---
Author Organization [employer] Address [address] [place] [address] 7t [place] [address] Care Team Providers Care Solutions Specialist Name Role Phone Maddie Kim MD Primary Care Provider [phone] Encounter Details Date Type Department Care Team (Late Contact Info) Description 11/14/2022 Orders Only [facility] [address] [place] [address] [phone] Maddie Kim MD [address] [place] [address] [phone] Social History Tobacco Use Types Packs/Day Years [...] Info) Description 07/01/2024 11:30 AM EDT Telemedicine [facility] [address] [place] [phone] Maddie Kim MD [address] [place] [address] [phone] documented as of this encounter Visit Diagnoses Not on filedocumented in this encounter Additional Health Concerns Assessment Noted Time PHQ-9 Depression Total Score: 0 05/30/19 23 3:26 PM EDT documented as of this encounter Care Teams Solutions Specialist Relationship Specialty Start Date End Date Maddie Kim MD [address] [place] [address] PCP - General Family Medicine 07/12/20 Willie Caring 01/17/22 documented as of this encounter
--- OUTSIDE RECORDS SUMMARY | 2024-05-19 16:20 | XMS_ITS | Encounter Summary ---
Author Organization [employer] Address [address] [place] [address] 7t [place] [address] Care Team Providers Care Bike Designer Name Role Phone Maddie Kim MD Primary Care Provider [phone] Encounter Details Date Type Department Care Team ([facility] Contact Info) Description 06/26/2022 Abstract [facility] [address] [place] [phone] Maddie Kim MD [address] [place] [address] [phone] Social History Tobacco Use Types Packs/Day Years [...] Upcoming Encounters Date Type Department Care Team ([facility] Contact Info) Description 07/01/2024 11:30 AM EDT Telemedicine [facility] [address] [place] [address] Maddie Kim MD [address] [place] [address] documented as of this encounter Visit Diagnoses Not on filedocumented in this encounter Additional Health Concerns Assessment Noted Time PHQ-9 Depression Total Score: 0 05/30/19 23 3:26 PM EDT documented as of this encounter Care Teams Bike Designer Relationship Specialty Start Date End Date Maddie Kim MD [address] [place] [address] PCP - General Family Medicine 07/12/20 Willie Gage 01/17/22 documented as of this encounter
--- OUTSIDE RECORDS SUMMARY | 2024-05-19 16:20 | XMS_ITS | Encounter Summary ---
Author Organization [facility] Address [address] [place] [address] Care Team Providers Care Adhesive Sprayer Name Role Phone Community, Pcp Primary Care Provider UnavailDarya Ness MD Primary Care Provider Unava Lewis Galvan MD Primary Care Provider Un available Dipesh Kern MD Primary Care Provide r Unavailable Becca Hinkle MD Primary Care Provider Unavailable Encounter Details Date Type Department Care Team Description 03/17/2015 Release of Information Medical Records [address] [place] [phone] Abstract, Provider Social History Tobacco Use Types [...] on filedocumented in this encounter Care Teams Adhesive Sprayer Relationship Specialty Start Date End Date Community, [...]
--- OUTSIDE RECORDS SUMMARY | 2024-05-19 16:20 | XMS_ITS | Encounter Summary ---
Author Organization [employer] Address [address] [facility] 7t [place] [address] Care Team Providers Care Adobe Block Maker Name Role Phone Maddie Kim MD Primary Care Provider [phone] Encounter Details Date Type Department Care Team ([facility] st Contact Info) Description 04/14/2024 Orders Only [facility] [address] [place], [place] [phone] Maddie Kim MD [address] [place], [place] [phone] Social History Tobacco Use Types Packs/Day Years [...] EDT Telemedicine [facility] [address] [place], [place] [phone] Maddie Kim MD [address] [place], [place] [phone] documented as of this encounter Procedures Procedure [...] Immunofixation, Serum (04/14/2024 12:47 PM EST) Pathologist [facility] IMMUNOGLOBULIN G 1545 600 - 1640 mg/dL [facility] IMMUNOGLOBULIN A 197 47 - 310 mg/dL [facility] Immunoglobulin M 46(A) 50 - 300 mg/dL [facility] Comment:THIS TEST WAS PERFOR MED AT:[email or web address] [place] [phone] PARKINSON MD Immunofixation Result SEE NOTE [facility] Comment:Normal pattern. No m onoclonal proteins detected. 04/14/2024 12:4 7 PM EST 04/14/2024 12:47 PM EST [facility] External Data Provider LAB BLOOD ORDERAB LES Final Result Performing Organization Address [facility] de Phone Number [facility] [address] [place] [phone] * Cortisol Random (04/14/2024 12:47 PM EST) [facility] Cortisol Random 5.7 ug/dL [facility] Comment:Reference Range*: Be fore 10 am 6.2-19.4 ug/dL After 5 pm 2.3-11.9 ug/dL*Please interpret above results accordingly.This test was performed using the [employer] chemiluminescentmethod. Values obtained from different assay methods cannotbe used interchangeably.Patients receiving fludrocortisone, prednisolone orprednisone may show artificially elevated cortisol valuesdue to cross-reactivity. 04/14/2024 12:4 7 PM EST 04/14/2024 12:47 PM EST Generic External Data Provider LAB BLOOD ORDERAB LES Final Result Performing Organization Address [facility] Co de Phone Number [facility] [address] [place] [phone] * Ferritin (04/14/2024 12:47 PM EST) Pathologist [facility] Ferritin 61 10 - 250 ng/mL [facility] 04/14/2024 12:4 7 PM EST 04/14/2024 12:47 PM EST us Gil Brewer MD LAB BLOOD ORDERABLES Final Resul t Performing Organization Address [facility] Co de Phone Number [facility] [address] [place] [phone] * Iron And Total Iron Binding Capacity (04/14/2024 12:47 PM EST) Iron 77 30 - 160 mcg/dL [facility] Total Iron Binding Capacity 339 228 - 428 mcg/dL [facility] Percent Iron Saturation 23 15 - 50 % [facility] Unsaturated Iron Binding 262 ug/dL [facility] 04/14/2024 12:4 7 PM EST 04/14/2024 12:47 PM EST us Gil Brewer MD LAB BLOOD ORDERABLES Final Resul t Performing Organization Address [facility] Co de Phone Number [facility] [address] [place] [phone] * (ABNORMAL) Basic Metabolic Panel (04/14/2024 12:47 PM EST) Sodium 139 135 - 145 mmol/L [facility] Potassium 4.3 3.3 - 5.1 mmol/L [facility] Chloride 104 96 - 108 mmol/L [facility] Carbon Dioxide 27 22 - 29 mmol/L [facility] Anion Gap 12 12 - 20 [facility] Urea Nitrogen (BUN) 7(L) 9 - 16 mg/dL [facility] Creatinine, Serum 0.69 0.5 - 1.4 mg/dL [facility] Estimated Glomerular Filt Rate >60 [facility] Comment:Chronic Kidney Disea se: Estimated GFR < 60 mL/min/1.02h0Zavako Kidney Disease: Estimated GFR < 15 mL/min/1.73m2 Glucose 84 60 - 115 mg/dL [facility] Calcium 9.5 8.4 - 10.2 mg/dL [facility] 04/14/2024 12:4 7 PM EST 04/14/2024 12:47 PM EST us Gil Name MD LAB BLOOD ORDERABLES Final Resul t [facility] [address] [place], [place] [phone] * (ABNORMAL) CBC auto differential (04/14/2024 12:47 PM EST) White Blood Count 6.5 4.8 - 10.8 X10*3/uL [facility] Red Blood Count 3.74(L) 4.20 - 5.50 X10*6/uL [facility] Hemoglobin 9.4(L) 12.0 - 16.0 g/dl [facility] Hematocrit 29.6(L) 37.0 - 47.0 % [facility] Mean Corpuscular Volume 79.1(L) 80.0 - 98.0 fL [facility] Mean Corpuscular Hemoglobin 25.1(L) 27.0 - 33.0 pg [facility] Mean Corpuscular HGB Conc 31.8 31.0 - 35.0 g/dl [facility] Red Cell Distribution Width 16.1(H) 11.0 - 16.0 % [facility] Platelet Count 530(H) 160 - 400 X10*3/uL [facility] Mean Platelet Volume 9.6 9.4 - 12.3 fL [facility] Neutrophils Percent Auto 56.2 45 - 73 % [facility] Imm Gran Pct Auto 0.6(H) 0.0 - 0.4 % [facility] Lymphocytes Percent Auto 32.5 20 - 40 % [facility] Monocytes Percent Auto 8.8 2 - 11 % [facility] Eosinophils Percent Auto 1.4 0 - 4 % [facility] Basophils Percent Auto 0.5 0 - 2 % [facility] NRBC Pct Auto 0.0 0.0 - 0.2 /100WBC [facility] Neutrophils Absolute Auto 3.7 2.0 - 8.3 x10*3/uL [facility] Imm Gran Abs Auto 0.04(H) 0.00 - 0.03 X10*3/uL [facility] Lymphocytes Absolute Auto 2.1 1.2 - 4.9 X10*3/uL [facility] Monocytes Absolute Auto 0.6 0.1 - 1.2 X10*3/uL [facility] Eosinophils Absolute Auto 0.1 0.0 - 0.4 X10*3/uL [facility] Basophils Absolute Auto 0.0 0.0 - 0.2 X10*3/uL [facility] NRBC Abs Auto 0.000 0.0 - 0.012 X10*3/uL [facility] 04/14/2024 12:4 7 PM EST 04/14/2024 12:47 PM EST us Gil Brewer MD LAB BLOOD ORDERABLES Final Resul t Performing Organization Address City/[facility]/ZIP Co de Phone Number [facility] [address] [place] [address] [phone] * (ABNORMAL) Osmolality, Urine (04/14/2024 12:45 PM EST) OSMOLALITY URINE 212(L) 373 - 1,093 mosm/kg [facility] 04/14/2024 12:4 5 PM EST 04/14/2024 1:55 PM EST us Generic External Data Provider LAB URINE ORDERAB LES Final Result Performing Organization Address [facility] Co de Phone Number [facility] [address] [place] [address] [phone] * Sodium Without creatinine, Random Urine (04/14/2024 12:45 PM EST) Sodium Urine Random 47.0 mmol/L [facility] 04/14/2024 12:4 5 PM EST 04/14/2024 1:55 PM EST us Generic External Data Provider LAB BLOOD ORDERAB LES Final Result [facility] [address] [place] [address] [phone] documented in this encounter Visit Diagnoses Not on filedocumented in this encounter Additional Health Concerns Assessment Noted Time PHQ-9 Depression Total Score: 3 06/15/19 24 11:48 AM EDT documented as of this encounter Care Teams Adobe Block Maker Relationship Specialty Start Date End Date Maddie Kim MD [address] [place] [address] PCP - General Family Medicine 07/12/20 Willie Gage 01/17/22 documented as of this encounter
--- OUTSIDE RECORDS SUMMARY | 2024-05-19 16:20 | XMS_ITS | Encounter Summary ---
Author Organization [facility] [facility] Address [address] [place] [address] 7t [place] [address] Care Team Providers Care Chocolate Production Machine Operator Name Role Phone Maddie Kim MD Primary Care Provider [phone] Encounter Details Date Type Department Care Team ([facility] Contact Info) Description 07/05/2022 Orders Only [facility] [address] [place] [address] [phone] Maddie Kim MD [address] [place] [address] [phone] Social History Tobacco Use Types Packs/Day Years [...] Upcoming Encounters Date Type Department Care Team ([facility] Contact Info) Description 07/01/2024 11:30 AM EDT Telemedicine [facility] [address] [place] [address] [phone] Maddie Kim MD [address] [place] [address] [phone] documented as of this encounter Visit Diagnoses Not on filedocumented in this encounter Additional Health Concerns Assessment Noted Time PHQ-9 Depression Total Score: 0 05/30/19 23 3:26 PM EDT documented as of this encounter Care Teams Chocolate Production Machine Operator Relationship Specialty Start Date End Date Maddie Kim MD [address] [place] [address] PCP - General Family Medicine 07/12/20 Willie Gage 01/17/22 documented as of this encounter
--- OUTSIDE RECORDS SUMMARY | 2024-05-19 16:20 | XMS_ITS | Encounter Summary ---
Author Organization [employer] Address [address] [place] [address] 7t [place] [address] Care Team Providers Care Tube Lancer Name Role Phone Maddie Kim MD Primary Care Provider [phone] Encounter Details Date Type Department Care Team ([facility] Contact Info) Description 03/30/2022 Abstract [facility] [address] [place] [address] [phone] Maddie Kim MD [address] [place] [address] [phone] Social History Tobacco Use Types Packs/Day Years [...] Info) Description 07/01/2024 11:30 AM EDT Telemedicine [facility] [address] [place] [address] [phone] Maddie Kim MD [address] [place] [address] [phone] documented as of this encounter Visit Diagnoses Not on filedocumented in this encounter Care Teams Tube Lancer Relationship Specialty Start Date End Date Maddie Kim MD [address] [place] [address] PCP - General Family Medicine 07/12/20 Willie Gage 01/17/22 documented as of this encounter
--- OUTSIDE RECORDS SUMMARY | 2024-05-19 16:20 | XMS_ITS | Encounter Summary ---
Author Organization [facility] Address [address] [place] [address] Care Team Providers Care Telephonic Nurse Case Manager Name Role Phone Darya Hamilton MD Primary Care Provider Ronak Beasley, Pcp Primary Care Provider Unavailabl e Darya Hamilton MD Primary Care Provider Lewis Birmingham MD Primary Care Provider Un available Dipesh Kern MD Primary Care Provide r Unavailable Becca Hinkle MD Primary Care Provider Unavailable Encounter Details Date Type Department Care Team Description 05/08/2013 Director Business Development Report Medical Records [address] [place] [address] Social History Tobacco Use Types Packs/Day Years [...] on filedocumented in this encounter Care Teams Telephonic Nurse Case Manager Relationship Specialty Start Date End [...]
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
--- OUTSIDE RECORDS SUMMARY | 2024-05-19 16:20 | XMS_ITS | Encounter Summary ---
Author Organization [employer] Address [address] [facility] 7t [place] [address] Care Team Providers Care Treating Machine Operator Name Role Phone Maddie Kim MD Primary Care Provider [phone] Reason for Visit * Reason Onset Date Comments Durable Medical Equipment 03/16/2022 Encounter Details Date Type Department Care Team ([facility] st Contact Info) Description 03/16/2022 Telephone [facility] [address] [place], [place] [phone] Maddie Kim MD [address] [place], [place] [phone] Durable Medical Equipment Social History Tobacco Use [...] it can fax to her landlord at [phone]. She would like the script to be to the [facility], [address] [place] [address] If any concerns please contact pt at [phone] documented in this encounter Plan of Treatment Upcoming Encounters Date Type Department Care Team (Late st Contact Info) Description 07/01/2024 11:30 AM EDT Telemedicine [facility] [address] [place] [phone] Maddie Kim MD [address] [place] [phone] documented as of this encounter Visit Diagnoses Not on filedocumented in this encounter Care Teams Treating Machine Operator Relationship Specialty Start Date End Date Maddie Kim MD [address] [place] [phone] PCP - General Family Medicine 07/12/20 Willie Gage 01/17/22 documented as of this encounter
--- OUTSIDE RECORDS SUMMARY | 2024-05-19 16:20 | XMS_ITS | Encounter Summary ---
Author Organization [facility] Address [address] [place] [address] Care Team Providers Care Motor Vehicle Lecturer Name Role Phone Dipesh Kern MD Primary Care Provide r Unavailable Becca Hinkle MD Primary Care Provider Unavailable Encounter Details Date Type Department Care Team Description 08/24/2020 [facility] Medical Records [address] [place] [phone] [place] [address] Social History Tobacco Use Types Packs/Day Years [...] on filedocumented in this encounter Care Teams Motor Vehicle Lecturer Relationship Specialty Start Date End Date Dipesh Kern MD PCP - General Internal Medicine 10/15/18 Becca Hinkle MD PCP - General Internal Medicine 03/23/21 documented as of this encounter
--- OUTSIDE RECORDS SUMMARY | 2024-05-19 16:20 | XMS_ITS | Encounter Summary ---
Author Organization [facility] Address [address] [place] [address] Care Team Providers Care Review Rn Name Role Phone Darya Hamilton MD Primary Care Provider Unava nel Beasley Pcp Primary Care Provider Unavailabl e Darya Hamilton MD Primary Care Provider Unava Lewis Galvan MD Primary Care Provider Un available Dipesh Kern MD Primary Care Provide r Unavailable Becca Hinkle MD Primary Care Provider Unavailable Reason for Visit * Reason Onset Date Comments Faxed Order 11/02/2014 Encounter Details Date Type Department Care Team Description 11/02/2014 Telephone Adult Medicine [address] [address] Darya Hamilton MD Faxed Order Social History [...] * Telephone Encounter - Naya Acosta - 11/02/2014 2:15 PM EDT Supplemental orders for Dr Darya Hamilton's signature documented in this encounter Plan of Treatment Not on file documented as of this encounter Visit Diagnoses Not on filedocumented in this encounter Care Teams Review Rn Relationship Specialty Start Date End Date Darya Hamilton MD PCP - General 06/30/10 03/15/15 [facility], Pcp PCP - General Internal Medicine 03/16/15 06/20/16 Darya Hamilton MD PCP - General Internal Medicine 06/21/16 11/12/16 Lewis Espino MD PCP - General Internal Medicine 11/13/16 Dipesh Kern MD PCP - General Internal Medicine 10/15/18 Muse-Becca Callaway MD PCP - General Internal Medicine 03/23/21 documented as of this encounter
--- OUTSIDE RECORDS SUMMARY | 2024-05-19 16:20 | XMS_ITS | Encounter Summary ---
Author Organization [facility] Address [address] [place] [address] Care Team Providers Care Field Control Inspector Name Role Phone Darya Hamilton MD Primary Care Provider Ronak Beasley, Pcp Primary Care Provider Unavailabl e Darya Hamilton MD Primary Care Provider Lewis Birmingham MD Primary Care Provider Un available Dipesh Kern MD Primary Care Provide r Unavailable Becca Hinkle MD Primary Care Provider Unavailable Encounter Details Date Type Department Care Team Description 06/05/2014 Release of Information Medical Records [address] [place] [id number] Abstract, Provider Social History Tobacco Use Types [...] on filedocumented in this encounter Care Teams Field Control Inspector Relationship Specialty Start Date End Date Darya Hamilton MD PCP - General 06/30/10 03/15/15 [facility], Pcp PCP - General Internal Medicine 03/16/15 06/20/16 Darya Hamilton MD PCP - General Internal Medicine 06/21/16 11/12/16 Lewis Espino MD PCP - General Internal Medicine 11/13/16 Dipesh Kern MD PCP - General Internal Medicine 10/15/18 Becca Hinkle MD PCP - General Internal Medicine 03/23/21 documented as of this encounter
--- OUTSIDE RECORDS SUMMARY | 2024-05-19 16:20 | XMS_ITS | Encounter Summary ---
Author Organization [employer] Address [address] [place] [address] [address] [place] [address] Care Team Providers Care Sales Agent [employer] Insurance Name Role Phone Maddie Kim MD Primary Care Provider [phone] Reason for Visit * Reason Onset Date Comments c/b request 11/10/2022 Encounter Details Date Type Department Care Team ([facility] st Contact Info) Description 11/10/2022 Telephone [facility] [address] [place] [address] [phone] Maddie Kim MD [address] [place], [place] [phone] c/b request Social History Tobacco Use Types [...] - 11/10/2022 4:26 PM EDT Tc from [facility] with willie gage requesting a call in regards to medication reconciliation. Please contact [facility] at [phone] documented in this encounter Plan of Treatment Upcoming Encounters Date Type Department Care Team (Late st Contact Info) Description 07/01/2024 11:30 AM EDT Telemedicine [facility] [address] [place] [address] aMddie Kim MD [address] [place] [phone] documented as of this encounter Visit Diagnoses Diagnosis Gastroesophageal reflux disease without esophagitis Esophageal reflux documented in this encounter Additional Health Concerns Assessment Noted Time PHQ-9 Depression Total Score: 0 05/30/19 23 3:26 PM EDT documented as of this encounter Care Teams Sales Agent [employer] Insurance Relationship Specialty Start Date End Date Maddie Kim MD [address] [place] [address] [phone] PCP - General Family Medicine 07/12/20 Willie Gage 01/17/22 documented as of this encounter
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
== END ==
LOC: HO.CARD 14:25
PROVIDERS: PCP General Practice; Visit Provider Internal Medicine
DX: R00.2 Palpitations (principal)
CPT/HCPCS: 93306

== ENCOUNTER → 2024-05-19 14:27 | Outpatient (BNV) | payer OTHER, SELFPAY | PROVIDERS: PCP General Practice; Visit Provider Internal Medicine | DX: I34.81 Nonrheumatic mitral (valve) annulus calcification (principal) | CPT/HCPCS: 93306 ==

== ENCOUNTER 2024-06-15 21:42 | Emergency (ER) | payer OTHER, SELFPAY ==
--- NOTE | 2024-06-15 | ECG_ITS ---
Test Reason : DIZZINESS Blood Pressure : */* mmHG Vent. Rate : 75 BPM Atrial Rate : 75 BPM P-R Int : 186 ms QRS Dur : 90 ms QT Int : 374 ms P-R-T Axes : 49 10 19 degrees QTcB Int : 417 ms Normal sinus rhythm Normal ECG When compared with ECG of 04-Apr-2024 12:31, Vent. rate has decreased by 46 bpm T wave amplitude has increased in Lateral leads Referred By: Generic ED Physician Electronically Signed By: Jose Wallace
[2024-06-15 21:55] VITALS: BP 112/83; PULSE 84; RESP 18; TEMP 36.5; O2SAT 99; BMI 36.3
--- OUTSIDE RECORDS SUMMARY | 2024-06-15 22:12 | XMS_ITS | Encounter Summary ---
Author Organization [facility] Address [address] [facility] [address] [place] [address] Care Team Providers Care Mva Reactor Operator Head Name Role Phone Maddie Kim MD Primary Care Provider [phone] Encounter Details Date Type Department Care Team ([facility] st Contact Info) Description 05/15/2023 Orders Only [facility] [address] [place], [place] [phone] Maddie Kim MD [address] [place], [place] [phone] Social History Tobacco Use Types Packs/Day Years Used Date Smoking Tobacco: Former Cigarettes 0.3 25.3 S tarted: 02/19/1999 Passive Smoke Exposure: Past [...] [facility] [address] [place] [address] [phone] Maddie Kim MD [address] [place] [address] [phone] documented as of this encounter Visit Diagnoses Not on filedocumented in this encounter Additional Health Concerns Assessment Noted Time PHQ-9 Depression Total Score: 0 05/30/19 23 3:26 PM EDT documented as of this encounter Care Teams Mva Reactor Operator Head Relationship Specialty Start Date End Date Maddie Kim MD [address] [place] [address] [phone] PCP - General Family Medicine 07/12/20 Willie Gage 01/17/22 documented as of this encounter
--- OUTSIDE RECORDS SUMMARY | 2024-06-15 22:12 | XMS_ITS | Encounter Summary ---
Author Organization [facility] Address [address] [place] [address] Care Team Providers Care Lead Data Entry Operator Name Role Phone Darya Hamilton MD Primary Care Provider Unanile neumann [facility], Pcp Primary Care Provider Unavailabl e Darya Hamilton MD Primary Care Provider Unava Lewis Galvan MD Primary Care Provider Un available Dipesh Kern MD Primary Care Provide r Unavailable Becca Hinkle MD Primary Care Provider Unavailable Reason for Visit * Reason Onset Date Comments refill request 12/26/2013 Encounter Details Date Type Department Care Team Description 12/26/2013 Refill Adult Medicine [address] [address] Darya Hamilton MD refill request Social History Tobacco Use [...] Telephone Encounter - Nataliia Amado M.A. - 12/26/2013 4:03 PM EST Message left for patient to return my call. Need to inform Fioricet refused and nicorette gum faxedto pharm. * Telephone Encounter - Nataliia Amado M.A. - 12/26/2013 2:59 PM EST Per message 11/05/13 (see encounter) fioricet is not to be rx'd to pt per pcp. Rx for fioricet denied. Rx for nicorette gum pended. * Telephone Encounter - Dinah Sidhu PA-C - 12/26/2013 1:17 PM EST Fioricet needs to be printed and if not on contract will need to wait. Please review * Telephone Encounter - Tata Rojas - 12/26/2013 12:33 PM EST Patient would like script to be: E-PRESCRIBED/FAXED TO PHARMACY WHEN WAS THE PATIENT'S LAST APPOINTMENT IN ADULT MEDICINE? 10/21/13 WHEN WAS THE LAST TIME THE PATIENT SAW THEIR PCP? Same as above Does patient have an upcoming appointment? Yes 03/24/14 (THE MEDICATION REQUESTED IS ON THE MED LIST ABOVE) All of the medications requested were on the CURRENT MEDS list Did you check the Pharmacy information above?: YES Patient wants: 30 -day supply Is this a mail order prescription request ? NO Patients current insurance carrier is: Payor: [facility] INS[employer] / Plan: [facility] [employer] / Product Type: OTHER documented in this encounter Plan of Treatment Not on file documented as of this encounter Visit Diagnoses Not on filedocumented in this encounter Care Teams Lead Data Entry Operator Relationship Specialty Start Date End Date Darya Hamilton MD PCP - General 06/30/10 03/15/15 [facility], Pcp PCP - General Internal Medicine 03/16/15 06/20/16 Darya Hamilton MD PCP - General Internal Medicine 06/21/16 11/12/16 Lewis Espino MD PCP - General Internal Medicine 11/13/16 Dipesh Kern MD PCP - General Internal Medicine 10/15/18 Figueroa-Becca Callaway MD PCP - General Internal Medicine 03/23/21 documented as of this encounter
--- OUTSIDE RECORDS SUMMARY | 2024-06-15 22:12 | XMS_ITS | Encounter Summary ---
Author Organization [facility] Address [address] [place] [address] Care Team Providers Care Fractionation Plant Supervisor Name Role Phone Darya Hamilton MD Primary Care Provider Ronak Beasley, Pcp Primary Care Provider Unavailabl e Darya Hamilton MD Primary Care Provider Lewis Birmingham MD Primary Care Provider Un available Dipesh Kern MD Primary Care Provide r Unavailable Becca Hinkle MD Primary Care Provider Unavailable Encounter Details Date Type Department Care Team Description 11/14/2010 Eye Baccarat Manager Report Medical Records [address] [place] [id number] Verstringdeb, Jude E III Social History Tobacco [...] on filedocumented in this encounter Care Teams Fractionation Plant Supervisor Relationship Specialty Start Date End Date Darya Hamilton MD PCP - General 06/30/10 03/15/15 [facility], Pcp PCP - General Internal Medicine 03/16/15 06/20/16 Darya Hamilton MD PCP - General Internal Medicine 06/21/16 11/12/16 Lewis Espino MD PCP - General Internal Medicine 11/13/16 Dipesh Kern MD PCP - General Internal Medicine 10/15/18 Becca Hinkle MD PCP - General Internal Medicine 03/23/21 documented as of this encounter
--- OUTSIDE RECORDS SUMMARY | 2024-06-15 22:12 | XMS_ITS | Data Portability ---
Author Organization [employer] [place] in [facility] [employer] Address [address] [place] [phone] Care Team Providers Care Job Printer Name Role Phone HIM [facility] OTHER [facility] OTHER [phone] Assessment Encounter Date Assessment Date Assessment LastModified by Organization Details LastModified Time 02/23/2024 02/23/2024 I provided real -time medical direction via phone for this encounter and was available for additional phone-based assistance as needed. I have reviewed and agree with the Assessment and Plan as documented by the Absorption And Adsorption Engineer. Patient given the opportunity to ask questions. [...] The patient is now voiding normally. Per design cell engineer on the scene the patient has stable vitals and is afebrile currently after taking Tylenol. Known UTI and would continue to take the antibiotic prescribed as well as Tylenol. Discussed red flags. Medic request urine culture sent to [facility]. Allergies: Reviewed Not available 02/23/2024 16:20:42 02/26/2024 02/26/2024 I have reviewed and agree with the assessment and plan as documented by the design cell engineer. I provided real-time medical direction for this encounter and was immediately available to provide additional phone-based assistance as needed. History as noted in EMR and by design cell engineer. I would add / emphasize: Patient seen [...] Assessment and Plan as documented by the Absorption And Adsorption Engineer. Patient given the opportunity to ask questions. Our service contacted for an assessment of: Hypertension As per above, patient with fluctuating blood pressures recently a medication adjustments. Is asymptomatic but wanted blood pressure check today. Denies chest pain, shortness of breath, dyspnea on exertion. Is adherent to all medications. Denies headache or neurologic changes. Per design cell engineer on the scene, vital signs are stable patient is afebrile. Exam unremarkable per design cell engineer on the scene. ECG noted Impression: Hypertension [...] Lab urinalysis, dipstick 2024 025 [facility], [address] [place], [address] 16:34:28 culture, urine 2024 025 SABIHA [facility] (Centralized Electronic Ordering - All Locations), Patient Can Go To The Location Of Their Choice, [address] 20:06:10 culture, urine 2024 025 SABIHA [facility] (Centralized Electronic Ordering - All Locations), Patient Can Go To The Location Of Their Choice, [address] 08:07:59 rapid flu (A+B) 2024 025 [facility], [address] [place] [address], [phone] 08:13:58 rapid SARS CoV 2 Ag, QL IA, respiratory specimen 2024 025 [facility], [address] [place] [address], [id number] 08:13:39 culture, urine 2024 025 [facility], [address], [place], [address], 04:41:56 Referral None recorded. Procedures None recorded. Surgeries None recorded. Imaging electrocard iogram 2024 025 [facility], [address] [place] [address], [phone] 07:59:45 Medication Orders None recorded. Patient TargetsNo targets recorded. Patient InstructionsNo instructions recorded. Reason for Referral None Reported. Results Created Date Observation Date Name Description Value Unit Range Abnormal Flag Note LastModifiedBy Organization Detail LastModifiedTime 02/22/1902/26/2024 CULTU RE, URINE , ROUTI NE culture, urine, routine SEE NOTE CULTU RE, URINE , ROUTI NE Micro Numbe r: [id number] Test Statu s: Final Speci men Sourc e: Urine Speci men Quali ty: Adequ ate Resul t: No Growt h Not Available [facility] [address], [place], [address], 02/26/2024 04:41:56 02/25/1902/29/2024 URINE CULTU RE,CO MPREH ENSIV E urine culture,comp rehensive Final report Not Available [facility] ([facility]) [address] [facility], [place], [address], 02/29/2024 10:06:00 02/25/19 25 02/29/2024 URINE CULTU RE,CO MPREH ENSIV E result 1 COMMEN T No growt h in 36 - 48 hours . Not Available [facility] ([facility]) [address] [facility], [place], [address], 02/29/2024 10:06:00 03/23/19 25 03/24/2024 URINE CULTU RE, ROUTI NE urine culture, routine Final report Not Available [facility] ([facility]) [address] [facility], [place], [address], 03/24/2024 20:06:10 03/23/19 25 03/24/2024 URINE CULTU RE, ROUTI NE result 1 COMMEN T Cultu re shows less than 10,00 0 colon y formi ng units of bacte carter per angela liter of urine . This colon y count is not gener ally consi dered to be clini rubén signi fican t. Not Available [facility] ([facility]) [address] [facility], [place], [address], 03/24/2024 20:06:10 04/20/19 25 04/19/2024 elect richie soto am No observ ation record ed. [email or web address] [address], [phone] 04/19/2024 08:02:01 Result Notes None recorded. Procedures Surgical History None recorded. Imaging Results Imaging Date Name Status LastModified by Organization Details LastModified Time 04/19/2024 electrocardiogram completed [email or web address] [address], [address] 04/19/2024 08:02:01 Procedure Notes None recorded. Medical Equipment None Reported. Allergies Allergen ID Allergen Name Allergen Category Reaction Reaction Severity Criticality Documentation Date Start Date Code Code System Note Provider Name and Address Organization Details Recorded Time 10236 Dilantin medicatio n Not available Not available Not available 02/22/2024 0 RxNorm Not Available [facility] 5 14:48:20 21194 sulfameth oxazole medicatio n Not available Not available Not available 02/22/2024 81894 RxNorm Not Available [facility] 5 14:48:20 00822 trimethop rim medicatio n Not available Not available Not available 02/22/2024 07050 RxNorm Not Available [facility] 5 14:48:20 00459 Product containin g penicilli n (product) medicatio n Not available Not available Not available 02/22/2024 00825 8001 SNOMED Not Available [facility] 5 14:48:20 66642 penicilli n G benzathin e medicatio n Not available Not available Not available 02/22/2024 7982 RxNorm Not Available [facility] 5 14:48:20 68097 penicilli n G procaine medicatio n Not available Not available Not available 02/22/2024 7983 RxNorm Not Available [facility] 5 14:48:20 Medications Name Sig Start Date [...] [degF] 157.48 cm 19 /min 96 /min 385229. 712 g 125 mm[Hg] 82 mm[Hg] Not Available [email or web address] [employer] 5 14:39:11 Date Recorded Body temperature Heart rate Respiratory rate Oxygen saturation Oxygen saturation in Arterial blood by Pulse oximetry Systolic blood pressure Diastolic blood pressure Provider Name and Address Organization Details Last Updated DateTime 5 100.9 [degF] 90 /min 16 /min 95 % 95 % 123 mm[Hg] 85 mm[Hg] Not Available [facility] [employer] 5 11:22:20 Date Recorded Respiratory rate Body temperature Oxygen saturation Oxygen saturation in Arterial blood by Pulse oximetry Heart rate Systolic blood pressure Diastolic blood pressure Provider Name and Address Organization Details Last Updated DateTime 5 16 /min 98.2 [degF] 100 % 100 % 99 /min 124 mm[Hg] 84 mm[Hg] Not Available [facility] 13:03:07 Date Recorded Oxygen saturation Oxygen saturation in Arterial blood by Pulse oximetry Body temperature Heart rate Respiratory rate Systolic blood pressure Diastolic blood pressure Provider Name and Address Organization Details Last Updated DateTime 5 98 % 98 % 98.7 [degF] 94 /min 18 /min 107 mm[Hg] 73 mm[Hg] Not Available [email or web address] 18:50:30 Date Recorded Body temperature Oxygen saturation Oxygen saturation in Arterial blood by Pulse oximetry Heart rate Respiratory rate Systolic blood pressure Diastolic blood pressure Provider Name and Address Organization Details Last Updated DateTime 5 98.6 [degF] 98 % 98 % 77 /min 18 /min 132 mm[Hg] 91 mm[Hg] Not Available [facility] 21:02:13 Social History None recorded. Functional Status None recorded. Mental Status None recorded. Family History Nothing Reported. Medical History No medical history recorded. Gynecological HistoryNo gynecological history recorded. Obstetrics History GPAL:G 0 P 0 0 0 0 Past Encounters Encounter ID Performer Location Encounter Start Date Encounter Closed Date Diagnosis/Indication Diagnosis SNOMED-CT Code Diagnosis ICD10 Code Diagnosis Note [id number] KALYN YAO MD [facility] [address] [place] [phone] 02/22/2024 21:29:01 02/23/2024 18:48:12 Urinary symptoms 479874386 R39.9 Evaluation in the field was performed by my design cell engineer colleague, as noted above, I provided real-time [...] for leukocytes , nitrites, blood, and ketones.Al kggies: Reviewed. Impression :UTI Plan:-UA findings are consistent with a UTI. Given the lack of systemic symptoms and CVA tenderness , the diagnosis is most likely simple cystitis.- Prescripti on for Macrobid 100 mg BID for 5 days sent to the patient's pharmacy. The first dose was administer ed by the design cell engineer. -To alleviate the burning sensation, a prescripti [...] or flank pain or any other concerns. [id number] Fawn Coelho MD [facility] [address] [place] [phone] 02/23/2024 14:34:12 02/23/2024 18:56:04 Urinary symptoms [id number] R39.9 [id number] Aramis Gallardo MD [facility] [address] [place] [phone] 02/26/2024 11:22:16 02/28/2024 11:56:29 Urinary symptoms 060150694 R39.9 Fever [id number] R50.9 [id number] Jessica Hadley MD Main - [facility] [address] [place] [phone] 03/23/2024 13:03:05 03/25/2024 16:45:46 Urinary symptoms [id number] R39.9 As noted, we were called to see this patient regarding concerns of urinary symptoms. Evaluation in the field was performed by my design cell engineer colleague, as noted above, I provided real-time [...] changes to consciousn ess, chest pain, dypsnea. [id number] Alisia Aguirre MD Main [facility] [address] [place] [phone] 04/01/2024 18:50:28 04/01/2024 19:49:17 Low back pain [id number] M54.50 48 year old female with a [...] of the lower extremitie s. Prior to [facility]'s visit she took an excedrin which is helping bring the paind own. Exam notable for normal vital signs, neurologic exam is grossly normal. Presentati on consistent with acute on chronic lumbar radiculopa thy, no red flags noted. I have reviewed and agree with the assessment and plan as documented by the design cell engineer. I provided real-time medical direction for this encounter and was immediatel y available to provide additional phone-base d assistance as needed. We discussed the diagnostic uncertaint y of home visits and associated risks. We discussed the need to seek care urgently/e mergently in the setting of any new or worsening symptoms. [id number] [facility] [address] [phone] 04/18/2024 20:44:44 04/19/2024 19:18:03 Essential hypertension 82010023 I10 Health Concerns Section Related Observation LastModified by Organization Detai ls LastModified Time None Recorded Concern Status LastModified by Organization Details LastModified Time None Recorded Advance Directives Directive None Recorded Payers Encounter Date Sequence Insurance Name Policy Number Policy Fernandez Covered Member ID Fernandez Member ID Guarantor Name 02/23/2024 1 [facility] - DOS ON OR AFTER 2022 - DUAL ELIGIBLE - [facility] OPT[employer] AND ONE CARE (MEDICARE REPLACEMENT/ADV ANTAGE - HMO) Atiya Dotson [id number] Atiyaabisai Dotson 02/26/2024 1 [facility] - DOS ON OR AFTER 2022 - DUAL ELIGIBLE - [facility] [employer] AND ONE CARE (MEDICARE REPLACEMENT/ADV ANTAGE - HMO) Atiya Dotson [id number] Atiya Y Mauri 03/23/2024 1 [facility] - DOS ON OR AFTER 2022 - DUAL ELIGIBLE - [facility] [employer] AND ONE CARE (MEDICARE REPLACEMENT/ADV ANTAGE - HMO) Atiya Dotson [id number] Atiyaabisai Dotson 04/01/2024 1 [facility] - DOS ON OR AFTER 2022 - DUAL ELIGIBLE - [facility] [employer] AND ONE CARE (MEDICARE REPLACEMENT/ADV ANTAGE - HMO) Atiya Dotson [id number] Atiya Rollearez 04/18/2024 1 [facility] - DOS ON OR AFTER 2022 - DUAL ELIGIBLE - [facility] [employer] AND ONE CARE (MEDICARE REPLACEMENT/ADV ANTAGE - HMO) Atiya Dotson [id number] Atiya Dotson Notes Date Note Type Note [...] ...................... ...................... ...................... ...................... ...................... ...................... ......... Absorption And Adsorption Engineer Note From Elias Garrison: Pt chief complaint today of fever/ uti symptoms going on for x 1 week. Pt was seen by [facility] personnel 1 day prior to her [facility] meeting today, urine dip was taken and positive for leukocytes and nitrates. [facility] medic was not able to acquire a [...] blurred vision. Pt has taken Tylenol before [facility] arrival for fever suppression.Nonneural focal exam, afebrile, vitals WNL, lungs are clear bilaterally. Benign abdominal assessment, no lower extremity edema noted. Pt is CAOX4 with GCS of 15. Urine culture acquired, no urine dip due to positivity yesterday.[facility] Fawn Coelho consultedPt informed, to continue taking her antibiotic which was prescribed prior to her [facility] visit today. Pt told to intake fluids and take 1 gram of Tylenol every 8 hours in a 24 hour period as needed for general aches and fever. Pt also educated on red flag S&S and informed to call emergency services if any present. ...................... ...................... ...................... ...................... ...................... ...................... ......... [facility] Consulted: Fawn Coelho ...................... ...................... ...................... ...................... ...................... ...................... ......... Disposition: Lizette Coelho MD [address] [facility],[address], [place], [phone], CORRIE TacodaARIELLE 02/23/2024 16:21:22 02/26/2024 text/html CRC Nurse Triage [...] relief. She would like to be evaluated. Absorption And Adsorption Engineer Organization Information for Christel Sandro Velez HILDA Business Legal Name: [facility] Address: [address] [place] [address], Search Engine Marketing Strategist: Jeff Bautista MD [place] No.: [id number] Absorption And Adsorption Engineer POC Test Results from [facility] Sandro Rosie STEVENS Rapid COVID antigen (11:21:01) COVID: - Rapid influenza antigen (11:21:02) Flu: - ...................... ...................... ...................... ...................... ...................... ...................... ......... Absorption And Adsorption Engineer Note From Sandro Kearney: This 48-year-old female [...] ...................... ...................... ...................... ...................... ...................... ...................... ......... [facility] Consulted: Aramis Gallardo ...................... ...................... ...................... ...................... ...................... ...................... ......... Disposition: Fulfilled Aramis Gallardo MD [address] [facility],[address], [place], [address], CORRIE - Retora Black 02/28/2024 06:38:26 03/23/2024 text/html CRC Nurse Triage [...] at 03/23/2024 Allergies Reviewed at 03/23/2024 Comments: Stress Analyst verified the Pt.'s name//address and phone number. [...] Tylenol for pain - Wellness visit requested Absorption And Adsorption Engineer Organization Information for Sandro Kearney Business Legal Name: [facility] Address: [address] [place] [id number], Search Engine Marketing Strategist: Jeff Bautista MD CLIA No.: [id number] Absorption And Adsorption Engineer POC Test Results from Sandro Kearney Urine Dipstick (13:07:26) Urine leukocytes: trace LEXIE Urine nitrites: - NIT Urine urobilinogen: - URO Urine protein: - PRO Urine pH: 5.0 pH Urine blood: - BLO Urine specific gravity: 1.010 SG Urine ketones: - KET Urine bilirubin: - MARCEL Urine glucose: - GLU ...................... ...................... ...................... ...................... ...................... ...................... ......... Absorption And Adsorption Engineer Note From Sandro Kearney: This 48-year-old female [...] ...................... ...................... ...................... ...................... ...................... ...................... ......... [facility] Consulted: Jessica Hadley ...................... ...................... ...................... ...................... ...................... ...................... ......... Disposition: Fulfilled Jessica Hadley MD [address] [place] [address],[address], [place], [address], [facility] 03/23/2024 13:41:47 04/01/2024 text/html CRC Nurse Triage [...] ...................... ...................... ...................... ...................... ...................... ...................... ......... Absorption And Adsorption Engineer Note From Inna Galvan: Sent to a [...] ...................... ...................... ...................... ...................... ...................... ...................... ......... [facility] Consulted: Alisia Aguirre ...................... ...................... ...................... ...................... ...................... ...................... ......... Disposition: Fulfilled Alisia Aguirre MD [address] [place] [address],[address], [place], [phone], [facility] 04/01/2024 19:22:50 04/18/2024 text/html CRC Nurse Triage [...] - 19:11 Allergies Reviewed at 04/18/2024 - 19:11 Comments: Patient calling in to place a [...] hospital. She would like to be evaluated. Absorption And Adsorption Engineer Organization Information for Inna Galvan Business Legal Name: [employer] Address: [address] [place] [address], [place] [address], Search Engine Marketing Strategist: Benjy COLON No.: [id number] Absorption And Adsorption Engineer POC Test Results from Inna Galvan EKG (21:04:35) EKG test performed. Attachments uploaded as part of this test result can be found under Documents section. ...................... ...................... ...................... ...................... ...................... ...................... ......... Absorption And Adsorption Engineer Note From Inna Galvan: Sent to a [...] warm, dry; 12 lead ECG: uploaded to [facility]; Pt states she does not want to go to ED, she only wants to be evaluated in home. C consulted and pt is advised ECG appears normal. Pt is advised to rest and follow up with Cardiology as previously planned. Red flags discussed. Pt has no further questions. ...................... ...................... ...................... ...................... ...................... ...................... ......... [facility] Consulted: Fawn Coelho ...................... ...................... ...................... ...................... ...................... ...................... ......... Disposition: Fulfilled Fawn Coelho MD [address] [facility],[address] [facility], [place], [phone], [facility] ARIELLE GARCIA 04/19/2024 08:01:24 OBGyn Episode No OBEpisode recorded.
--- OUTSIDE RECORDS SUMMARY | 2024-06-15 22:12 | XMS_ITS | Encounter Summary ---
Author Organization [facility] Address [address] [place] [address] Care Team Providers Care Sterilization Specialist Name Role Phone Darya Hamilton MD Primary Care Provider Ronak Beasley, Pcp Primary Care Provider Unavailabl e Darya Hamilton MD Primary Care Provider Maryva Lewis Galvan MD Primary Care Provider Un available Dipesh Kern MD Primary Care Provide r Unavailable Becca Hinkle MD Primary Care Provider Unavailable Encounter Details Date Type Department Care Team Description 05/20/2013 Neuroradiologist Report Medical Records [address] [place] [id number] Karlie Concepcion MD Social History Tobacco Use Types Packs/Day [...] on filedocumented in this encounter Care Teams Sterilization Specialist Relationship Specialty Start Date End Date Darya Hamilton MD PCP - General 06/30/10 03/15/15 [facility], [facility], Pcp PCP - General Internal Medicine 03/16/15 06/20/16 Darya Hamilton MD PCP - General Internal Medicine 06/21/16 11/12/16 Lewis Espino MD PCP - General Internal Medicine 11/13/16 Dipesh Kern MD PCP - General Internal Medicine 10/15/18 Becca Hinkle MD PCP - General Internal Medicine 03/23/21 documented as of this encounter
--- OUTSIDE RECORDS SUMMARY | 2024-06-15 22:12 | XMS_ITS | Encounter Summary ---
Author Organization [facility] Address [address] [place] [address] Care Team Providers Care Human Resources Intern Name Role Phone Darya Hamilton MD Primary Care Provider Ronak Beasley, Pcp Primary Care Provider Unavailabl e Darya Hamilton MD Primary Care Provider Lewis Birmingham MD Primary Care Provider Un available Dipesh Kern MD Primary Care Provide r Unavailable Becca Hinkle MD Primary Care Provider Unavailable Encounter Details Date Type Department Care Team Description 10/26/2010 [facility] Medical Records [address] [place] [address] Ethan Tapia MD Social History Tobacco Use Types Packs/Day [...] on filedocumented in this encounter Care Teams Human Resources Intern Relationship Specialty Start Date End Date Darya Hamilton MD PCP - General 06/30/10 03/15/15 [facility], Pcp PCP - General Internal Medicine 03/16/15 06/20/16 Darya Hamilton MD PCP - General Internal Medicine 06/21/16 11/12/16 Lewis Espino MD PCP - General Internal Medicine 11/13/16 iDpesh Kern MD PCP - General Internal Medicine 10/15/18 [place]-Becca Callaway MD PCP - General Internal Medicine 03/23/21 documented as of this encounter
--- OUTSIDE RECORDS SUMMARY | 2024-06-15 22:12 | XMS_ITS | Encounter Summary ---
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
--- OUTSIDE RECORDS SUMMARY | 2024-06-15 22:12 | XMS_ITS | Encounter Summary ---
Author Organization [facility] Address [address] [place] [address] Care Team Providers Care Fire Lookout Name Role Phone Darya Hamilton MD Primary Care Provider Denita Dean Primary Care Provider Unavailabl e Darya Hamilton MD Primary Care Provider Unava Lewis Galvan MD Primary Care Provider Un available Dipesh Kern MD Primary Care Provide r Unavailable Becca Hinkle MD Primary Care Provider Unavailable Reason for Visit * Reason Onset Date Comments APPOINTMENT 08/17/2011 Encounter Details Date Type Department Care Team Description 08/17/2011 Telephone Adult Medicine [address] [address] Darya Hamilton MD APPOINTMENT Social History Tobacco Use Types Packs/Day Years Used Date Smoking Tobacco: Every Day Cigarettes 1 Smokeless Tobacco: Never Comments:started smoking at 14 Alcohol Use Standard Drinks/Week Comments Yes 0 (1 standard drink = 0.6 oz pur e alcohol) weekends Sex Assigned at Date Recorded Not on file documented as of this encounter Miscellaneous Notes * Telephone Encounter - Jackie Gonzalez L.P.N. - 08/17/2011 4:41 PM EDT Message left for patient to make apt for b/p follow up with pcp or Barbara, - see result note documented in this encounter Plan of Treatment Not on file documented as of this encounter Visit Diagnoses Not on filedocumented in this encounter Care Teams Fire Lookout Relationship Specialty Start Date End Date Darya Hamilton MD PCP - General 06/30/10 03/15/15 [facility], Pcp PCP - General Internal Medicine 03/16/15 06/20/16 Darya Hamilton MD PCP - General Internal Medicine 06/21/16 11/12/16 Lewis Espino MD PCP - General Internal Medicine 11/13/16 Dipesh Kern MD PCP - General Internal Medicine [facility] - [facility] 03/23/21 documented as of this encounter
--- OUTSIDE RECORDS SUMMARY | 2024-06-15 22:12 | XMS_ITS | Encounter Summary ---
Author Organization [employer] Address [address] [facility] [address] [place] [address] Care Team Providers Care Wastewater Project Manager Name Role Phone Maddie Kim MD Primary Care Provider [phone] Encounter Details Date Type Department Care Team ([facility] st Contact Info) Description 07/29/2023 Orders Only [facility] MEDICINE [address] [place], [place] [phone] Maddie Kim MD [address] [place], [place] [phone] Social History Tobacco Use Types Packs/Day Years Used Date Smoking Tobacco: Every Day Cigarettes 0.5 25.3 Started: 02/19/1999 Passive Smoke Exposure: Past Smokeless [...] Info) Description 07/01/2024 11:30 AM EDT Telemedicine [facility] MEDICINE [address] [place] [address] Maddie Kim MD [address] [place] [address] documented as of this encounter Visit Diagnoses Not on filedocumented in this encounter Additional Health Concerns Assessment Noted Time PHQ-9 Depression Total Score: 3 06/15/19 24 11:48 AM EDT documented as of this encounter Care Teams Wastewater Project Manager Relationship Specialty Start Date End Date Maddie Kim MD [address] [place] [address] PCP - General Family Medicine 07/12/20 Willie Gage 01/17/22 documented as of this encounter
--- OUTSIDE RECORDS SUMMARY | 2024-06-15 22:12 | XMS_ITS | Encounter Summary ---
Author Organization [employer] Address [address] [facility] [address] [place] [address] Care Team Providers Care Trials Manager Name Role Phone Maddie Kim MD Primary Care Provider [phone] Reason for Visit * Reason Onset Date Comments Nutrition Medication Question 05/30/2023 Encounter Details Date Type Department Care Team ([facility] Contact Info) Description 05/30/2023 Telephone [facility] MEDICINE [address] [place], [place] [phone] Maddie Kim MD [address] [place], [place] [phone] Nutrition Medication Question Social History Tobacco Use [...] 07/01/2024 11:30 AM EDT Telemedicine [facility] MEDICINE [address] [place] [address] Maddie Kim MD [address] [place] [address] documented as of this encounter Visit Diagnoses Not on filedocumented in this encounter Additional Health Concerns Assessment Noted Time PHQ-9 Depression Total Score: 0 05/30/19 23 3:26 PM EDT documented as of this encounter Care Teams Trials Manager Relationship Specialty Start Date End Date Maddie Kim MD [address] [place] [id number] PCP - General Family Medicine 07/12/20 Willie Gage 01/17/22 documented as of this encounter
--- OUTSIDE RECORDS SUMMARY | 2024-06-15 22:12 | XMS_ITS | Encounter Summary ---
Author Organization [facility] Address [address] [place] [address] Care Team Providers Care Graphic Pre Press Trades Worker Name Role Phone Darya Hamilton MD Primary Care Provider Ronak Beasley, Pcp Primary Care Provider Unavailabl e Darya Hamilton MD Primary Care Provider Maryva Lewis Galvan MD Primary Care Provider Un available Dipesh Kern MD Primary Care Provide r Unavailable Becca Hinkle MD Primary Care Provider Unavailable Encounter Details Date Type Department Care Team Description 05/21/2011 [employer] Curator Report Medical Records [address] [place] [id number] Radha Olvera Social History Tobacco Use Types Packs/Day Years [...] on filedocumented in this encounter Care Teams Graphic Pre Press Trades Worker Relationship Specialty Start Date End Date Darya Hamilton MD PCP - General 06/30/10 03/15/15 [facility], Pcp PCP - General Internal Medicine 03/16/15 06/20/16 Darya Hamilton MD PCP - General Internal Medicine 06/21/16 11/12/16 Lewis Espino MD PCP - General Internal Medicine 11/13/16 Dipesh Kern MD PCP - General Internal Medicine 10/15/18 Becca Hinlke MD PCP - General Internal Medicine 03/23/21 documented as of this encounter
--- OUTSIDE RECORDS SUMMARY | 2024-06-15 22:12 | XMS_ITS | Encounter Summary ---
Author Organization [facility] Address [address] [place] [address] Care Team Providers Care Glassware Engraver Name Role Phone Darya Hamilton MD Primary Care Provider Ronak Beasley, Pcp Primary Care Provider Unavailabl e Darya Hamilton MD Primary Care Provider Lewis Birmingham MD Primary Care Provider Un available Dipesh Kern MD Primary Care Provide r Unavailable Becca Hinkle MD Primary Care Provider Unavailable Encounter Details Date Type Department Care Team Description 11/11/2013 Senior Linux Administrator Report Medical Records [address] [place] [address] Social History Tobacco Use Types Packs/Day Years [...] on filedocumented in this encounter Care Teams Glassware Engraver Relationship Specialty Start Date End Date Darya [...]
--- OUTSIDE RECORDS SUMMARY | 2024-06-15 22:12 | XMS_ITS | Continuity of Care Document ---
Author Organization [facility], [facility] 1st Floor Address [address] [place] [address] Care Team Providers Care Svp Business Development Name Role Phone JEAN-PIERRE MASON Primary Care Provider [phone] Assessment No assessment recorded. Plan of Treatment Reminders Order Date Submit Date Provider Last Modified By Organization Details Last Modified Time Details Appointments PT FOLLOW-U P 2024 02:30P M Na Malonee, SUPERVISOR Not available Not available Not available PT FOLLOW-U P 2024 02:30P M Na Malonee, SUPERVISOR Not available Not available Not available POST OP 15 2024 01:00P M Alonzo Singleton PA-C Not available Not available Not available PT FOLLOW-U P 2024 10:00A M Hector Pyser, PT Not available Not available Not available PT FOLLOW-U P 2024 09:30A M Ehctor Pyser, PT Not available Not available Not available PT FOLLOW-U P 2024 10:30A M Hector Pyser, PT Not available Not available Not available PT FOLLOW-U P 2024 09:00A M Hector Pyser, PT Not available Not available Not available PT FOLLOW-U P 2024 04:30P M Na Fudge, SUPERVISOR Not available Not available Not available PT FOLLOW-U P 2024 09:30A M Na Fudge, SUPERVISOR Not available Not available Not available PT FOLLOW-U P 2024 09:30A M Na Fudge, SUPERVISOR Not available Not available Not available PT FOLLOW-U P 2024 09:00A M Na Walkerdge, SUPERVISOR Not available Not available Not available PT FOLLOW-U P 2024 09:30A M Hector Pyser, PT Not available Not available Not available PT FOLLOW-U P 2024 09:30A M Hector Pyser, PT Not available Not available Not available PT FOLLOW-U P 2024 09:30A M Na Fudge, SUPERVISOR Not available Not available Not available PT FOLLOW-U P 2024 09:30A M Na Fudge, SUPERVISOR Not available Not available Not available PT FOLLOW-U P 2024 09:30A M Hector Pyser, PT Not available Not available Not available PT FOLLOW-U P 2024 09:30A M Hector Pyser, PT Not available Not available Not available PT FOLLOW-U P 2024 09:30A M Na Walkerdge, SUPERVISOR Not available Not available Not available PT FOLLOW-U P 2024 09:30A M Na Walkerdge, SUPERVISOR Not available Not available Not available RECHECK 10 2024 10:50A M Sage Walker MD Not available Not available Not available Lab None recorded . Referral None recorded . Procedures None recorded . Surgeries None recorded . Imaging XR, knee, 3 view - rm 114 3v left knee first po ltkr 2024 025 [email or web address] [facility], [address], [address], [place], [address], 06/10/2024 15:08:14 Medication Orders None recorded . Patient TargetsNo targets recorded. Patient InstructionsNo instructions recorded. Reason for Referral None Reported. Results Created Date Observation Date Name Description Value Unit Range Abnormal Flag Note LastModifiedBy Organization Detail LastModifiedTime 05/28/1905/27/2024 XR, knee, 4 or more view No observ ation record ed. [facility] [address], [place], [address], 05/28/2024 14:53:28 06/11/19 25 06/10/2024 XR, knee, 3 view [email or web address] ?Encry pted=s hAaTro YD8dLq bEUv6g %2BXZw aYqtaq 0bqfl% 2Fg9IQ a4ajBk vP9nXo QUaueC m3YtLR FvZlgJ JJ8mAn HZtai3 0k4915 AC0Kla n2HUqa nKiQtr MwF INTERFACE [facility] [address], [place], [address], 06/10/2024 13:28:17 06/11/19 25 06/10/2024 XR, knee, 3 view [email or web address] ?Encry pted=s hAaTro YD8dLq bEUv6g %2BXZw aYqtaq 0bqfl% 2Fg9IQ a4ajBk vP9nXo QUaueC m3YtLR FvZlgJ JJ8mAn HZtai3 3j3399 AC0Kla n2HUqa nKiQtr MwF INTERFACE [facility] [address], [place], [address], 06/10/2024 13:28:19 Result Notes None recorded. Problems Name Problem SNOMED Code Status Onset Date Resolution Date Notes Provider Name and Address Organization Details Recorded Time Fracture of ankle 57905395 Active 2023 KIM brunson [place] - [facility] 4 15:14:42 No complaints 722408221 Active Status : 'I'; Not Available [facility] 4 09:21:06 Postoperat laurence pain 206195848 Active 2024 Huma Augustin APRN [address], [place], [address] , [place] - [facility] 5 12:23:32 Mass of joint of left wrist 2600742865264 9101 Active 2023 Cammy Ovalle, OTR/L,CHT [address], [place], [address] , [facility] 09:39:49 Problem Notes None recorded. Procedures Surgical History Date Name Laterality Status Provider Name and Address Organization Details Recorded Time 06/13/19 12859: Therapeutic Activities (1:1) completed Na Gonzalez, SUPERVISOR [address], [place], [address], [facility] 06/13/2024 07:27:56 06/13/19 72017 Therapeutic Exercise (1:1) completed Na Gonzalez, SUPERVISOR [address], [place], [address], [facility] 06/13/2024 07:27:26 06/13/19 67967: Manual therapy completed Na Gonzalez, SUPERVISOR [address], [place], [address], [facility] 06/13/2024 07:27:52 06/10/19 38232 Therapeutic Exercise (1:1) completed Hector Pyser, PT [address], [place], [address], [facility] 05/31/2024 14:22:51 06/10/19 91441: Low complexity PT Eval completed Hector Pyser, PT [address], [place], [address], [facility] 05/31/2024 14:22:53 05/01/19 82294 Therapeutic Exercise (1:1) completed Hector Pyser, PT [address], [place], [address], [facility] 04/29/2024 14:50:39 05/01/19 99744: Low complexity PT Eval completed Hector Pyser, PT [address], [place], [address], [facility] 04/29/2024 14:50:41 12/04/19 Sports Knee 4&1 completed Juancarlos Iyer PA-C [address], [place], [address], [facility] 12/04/2023 11:27:50 06/08/19 24 Splint_Short Arm Fiberglass_11+ completed [facility] 06/08/2023 13:25:25 Imaging Results None recorded. Procedure Notes None recorded. Medical Equipment None Reported. Allergies Allergen ID Allergen Name Allergen Category Reaction Reaction Severity Criticality Documentation Date Start Date Code Code System Note Provider Name and Address Organization Details Recorded Time 863431 penicilli n G benzathin e medicatio n Not available Not available Not available 04/23/20232012 7982 RxNorm GOMEZ ARBOLEDAOUR [facility] 4 13:22:51 757728 Dilaudid medicatio n Not available Not available Not available 04/23/20232012 09085 3 RxNorm GOMEZ ROWLANDYMOUR [facility] 4 13:22:48 787360 Bactrim medicatio n Not available Not available Not available 04/23/20232020 06332 9 RxNorm JACKIE BLAYNE [facility] 5 14:12:53 Medications Name Sig Start Date Stop Date Status Note LastModified by Organization Details LastModified Time celecoxib 200 mg capsule TAKE 1 CAPSULE BY MOUTH EVERY DAY active Not Available Not Available No t Available cyclobenzap rine 10 mg tablet TAKE 1 TABLET BY MOUTH THREE TIMES A DAY 04/10 completed Not Available Not Available Not Available acetaminoph en 325 mg tablet TAKE 3 TABLETS BY MOUTH EVERY 6 HOURS 08/28 completed Not Available Not Available Not Available gabapentin 600 mg tablet active Not Available Not Available Not Available clindamycin HCl 300 mg capsule TAKE 2 CAPS BY MOUTH 30MIN PRIOR TO DENTAL APPT DIRECTED 07/03 completed Not Available Not Available Not Available tizanidine 4 mg tablet TAKE 1 TAB (4 MG) BY MOUTH 3 TIMES DAILY. 12/03 completed Not Available Not Available Not Available senna 8.6 mg tablet Take 2 tablets every day by oral route. active Not Available Not Available No t Available naltrexone 50 mg tablet TAKE 1 TABLET BY MOUTH EVERY DAY active Not Available Not Available No t Available ondansetron HCl 4 mg tablet TAKE 1 TABLET BY MOUTH EVERY 8 HOURS NEEDED FOR NAUSEA OR FOR VOMITING FOR UP TO 7 DAYS active Not Available Not Available No t Available clonazepam 0.5 mg tablet 04/10 completed Not Available Not Available Not Available acetaminoph en 300 mg-codeine 30 mg tablet TAKE 1 TABLET BY MOUTH EVERY 8 HOURS NEEDED FOR SEVERE PAIN FOR UP TO 15 DAYS 07/03 completed Not Available Not Available Not Available divalproex 500 mg tablet,kassandra yed release TAKE 2 TABLETS BY MOUTH TWICE A DAY active Not Available Not Available No t Available minoxidil 2.5 mg tablet TAKE 1/4 TABLET BY MOUTH DAILY active Not Available Not Available No t Available aspirin 81 mg tablet,kassandra yed release TAKE 1 TABLET BY MOUTH TWO TIMES A DAY FOR 14 DAYS 12/03 completed Not Available Not Available Not Available tramadol 50 mg tablet TAKE 1 TO 2 TABLETS BY MOUTH EVERY 6 HOURS NEEDED FOR MILD PAIN. DO NOT EXCEED 8 TABLETS (400MG) PER DAY. active Not Available Not Available No t Available acetaminoph en 500 mg tablet TAKE 2 TABLETS (1,000 MG) BY MOUTH 3 TIMES DAILY. active Not Available Not Available No t Available triamcinolo ne acetonide 0.1 % topical cream active Not Available Not Available Not Available prazosin 5 mg capsule TAKE 1 CAPSULE BY MOUTH EVERYDAY AT BEDTIME active Not Available Not Available No t Available terbinafine HCl 250 mg tablet TAKE 1 TABLET BY MOUTH EVERY DAY 07/03 completed Not Available Not Available Not Available propranolol 10 mg tablet active Not Available Not Available Not Available cyanocobala min (vit B-12) [address] 1 TABLET UNDER THE TONGUE ONCE PER DAY. active Not Available Not Available No t Available nicotine (polacrilex ) 4 mg gum CHEW 1 EACH GUM IF NEEDED FOR SMOKING CESSATION . 12/03 completed Not Available Not Available Not Available baclofen 10 mg tablet Take 1 tablet 3 times a day by oral route for 14 days. 2024 active Not Available Not Available Not Avai lable nitrofurant oin macrocrysta l 100 mg capsule 04/10 completed Not Available Not Available Not Available lisinopril 10 mg tablet TAKE 1 TABLET BY MOUTH EVERY DAY 04/10 completed Not Available Not Available Not Available nicotine 21 mg/[address] patch PLACE 1 PATCH ON THE SKIN 1 TIME EACH DAY AT THE SAME TIME. 07/03 completed Not Available Not Available Not Available docusate sodium 100 mg capsule TAKE 1 CAPSULE BY MOUTH TWICE A DAY 07/03 completed Not Available Not Available Not Available gabapentin 300 mg capsule TAKE 2 CAPSULES BY MOUTH 3 TIMES A DAY active Not Available Not Available No t Available omeprazole 20 mg capsule,del ayed release TAKE 1 CAPSULE (20 MG) BY MOUTH BEFORE BREAKFAST active Not Available Not Available No t Available folic acid 1 mg tablet TAKE 1 TABLET BY MOUTH EVERY DAY active Not Available Not Available No t Available lisinopril 5 mg tablet TAKE 1 TABLET BY MOUTH EVERY DAY IN THE MORNING active Not Available Not Available No t Available hydrochloro thiazide 25 mg tablet TAKE 1 TABLET (25 MG) BY MOUTH ONCE PER DAY. 04/10 completed Not Available Not Available Not Available mupirocin 2 % topical ointment 04/10 completed Not Available Not Available Not Available epinephrine 0.3 mg/0.3 mL injection, auto-inject or INJECT 1 PEN INTRAMUSC ULARLY ONCE active Not Available Not Available No t Available albuterol sulfate HFA 90 mcg/actuati on aerosol inhaler INHALE 2 PUFFS EVERY 6 HOURS IF NEEDED FOR WHEEZING. active Not Available Not Available No t Available lisinopril 40 mg tablet TAKE 1 TABLET (40 MG) BY MOUTH ONCE PER DAY. active Not Available Not Available No t Available metformin ER 500 mg tablet,exte nded release 24 hr TAKE 2 TABLETS (1,000 MG) BY MOUTH WITH EVENING MEAL. DO NOT CRUSH, CHEW, OR SPLIT. active Not Available Not Available No t Available thiamine HCl (vitamin B1) 50 mg tablet TAKE 1 TABLET BY MOUTH EVERY DAY active Not Available Not Available No t Available oxycodone 5 mg tablet 1-2 tablets every 6 hours PRN severe pain 2024 active Not Available Not Available Not Avai lable neomycin-po lymyxin-hyd rocort 3.5 mg-10,000 unit/mL-1 % ear drops,susp ADMINISTE R 3-4 DROPS INTO AFFECTED EAR(S) 4 TIMES DAILY FOR 10 DAYS. 07/03 completed Not Available Not Available Not Available Laxative (bisacodyl) 5 mg tablet,kassandra yed release TAKE 2 TABLETS BY MOUTH AT BEDTIME active Not Available Not Available No t Available divalproex ER 250 mg tablet,exte nded release 24 hr active Not Available Not Available Not Available cyclobenzap rine 5 mg tablet TAKE 1 TABLET (5 MG) BY MOUTH 3 TIMES DAILY FOR 10 DAYS. active Not Available Not Available No t Available topiramate 50 mg tablet active Not Available Not Available Not Available nitrofurant oin monohydrate /macrocryst als 100 mg capsule TAKE 1 CAPSULE BY MOUTH EVERY 12 HOURS FOR 5 DAYS 04/10 completed Not Available Not Available Not Available varenicline tartrate 0.5 mg (11)-1 mg (42) tablets in a dose pack PLEASE SEE ATTACHED FOR DETAILED DIRECTION S 07/03 completed Not Available Not Available Not Available Vivitrol 380 mg intramuscul ar suspension, extended release 06/02 completed Not Available Not Available Not Available quetiapine 50 mg tablet active Not Available Not Available Not Available oxycodone 10 mg tablet 0.5-1 tablets every 4 hours PRN pain active Not Available Not Available No t Available diclofenac 1 % topical gel APPLY 1 INCH TOPICALLY IF NEEDED IN THE MORNING AND AT BEDTIME (PAIN). active Not Available Not Available No t Available oxycodone HCl-oxycodo ne-ASA 1 tabs every 8 hrs prn pain. Do not drive while on this medicatio n. 07/03 completed Statu s: 'Curr ent'; Not Available Not Available Not Available blood pressure test kit-large cuff USE TO CHECK BLOOD PRESSURE TWICE DAILY DIRECTED 07/03 completed Not Available Not Available Not Available Invega Sustenna 234 mg/1.5 mL intramuscul ar syringe INJECT 234MG INTO THE MUSCLE ONCE A MONTH DIRECTED active Not Available Not Available No t Available Gavilax 17 gram/dose oral powder DISSOLVE 17 GRAM IN WATER AND TAKE BY MOUTH ONCE DAILY 1-3 TIMES DAILY TO PRODUCE 1 SOFT STOOL DAILY 04/10 completed Not Available Not Available Not Available paliperidon e ER 1.5 mg tablet,exte nded release 24 hr TAKE 1 TABLET BY MOUTH EVERY DAY 12/03 completed Not Available Not Available Not Available Minerin lotion APPLY TOPICALLY 2-3 TIMES A DAY NEEDED FOR DRY SKIN 04/10 completed Not Available Not Available Not Available Eliquis 2.5 mg tablet TAKE 1 TABLET BY MOUTH TWO TIMES A DAY active Not Available Not Available No t Available naloxone 4 mg/actuatio n nasal spray PLEASE SEE ATTACHED FOR DETAILED DIRECTION S 07/03 completed Not Available Not Available Not Available Vraylar 1.5 mg capsule active Not Available Not Available N ot Available Vraylar 3 mg capsule active Not Available Not Available N ot Available nicotine (polacrilex ) 4 mg buccal mini lozenge 1 MINI LOZENGE BUCCAL EVERY 2-3 HOURS NEEDED. MAX 10 PIECES PER DAY 07/03 completed Not Available Not Available Not Available Paxlovid 300 mg (150 mg x 2)-100 mg tablets in a dose pack TAKE 3 TABLETS BY MOUTH TWICE A DAY FOR 5 DAYS 07/03 completed Not Available Not Available Not Available Vitals Date Recorded Body height Body mass index (BMI) Body weight Systolic blood pressure Diastolic blood pressure Provider Name and Address Organization Details Last Updated DateTime 06/10/2024 157.48 cm 40.1 kg/m2 66531.73 g 110 mm[Hg] 72 mm[Hg] Андрей Beltran [place] - [facility] 13:12:32 Social History None recorded. Functional Status None recorded. Mental Status None recorded. Family History Nothing Reported. Medical History Condition Response Allergies/Hayfever N Coronary Artery Disease N Breathing or lung disorders N Anxiety/Depression Y Emphysema N Nerve Disorders N Thyroid Problems N COPD N Pacemaker N Kidney/Bladder Problems N Anemia N Vascular Disease N Heart Trouble N Heart Attack (GA) N Gastrointestinal Disease N Cholesterol N Diabetes N Autoimmune disease N Bleeding Disorder N Orthotics N Seizures/Epilepsy N Arthritis Y Blood Clot N AIDS/HIV N Congestive Heart Failure (CHF) N Acid Reflux (GERD) Y Cancer N Stroke N Asthma N Circulation Problems N Peripheral Vascular Disease N Sleep Apnea N Hepatitis N Heart Disease N Rheumatoid Arthritis N Pulmonary Embolism N Arrhythmia N Headaches Y Fibromyalgia N Hypertension Y Osteoporosis N Gynecological HistoryNo gynecological history recorded. Obstetrics History GPAL:G 0 P 0 0 0 0 Past Encounters Encounter ID Performer Location Encounter Start Date Encounter Closed Date Diagnosis/Indication Diagnosis SNOMED-CT Code Diagnosis ICD10 Code Diagnosis Note [id number] [facility] 2[address] [place] [address] 05/16/2024 08:50:29 05/30/2024 04:02:27 Osteoarthritis of left knee joint 4404595239 27056 M17.12 [id number] Hector Sams, PT [facility] [address] [place] [address] 06/09/2024 16:25:39 06/09/2024 17:48:56 History of left total knee replacement 8050072286 337717 Z96.652 Z47.1 [id number] [facility] [address] [place] [address] 06/10/2024 12:44:32 06/10/2024 14:26:20 Knee joint prosthesis present 1724386942 02 Z96.652 Health Concerns Section Related Observation LastModified by Organization Detai ls LastModified Time None Recorded Concern Status LastModified by Organization Details LastModified Time None Recorded Payers Encounter Date Sequence Insurance Name Policy Number Policy Fernandez Covered Member ID Fernandez Member ID Guarantor Name 06/10/2024 1 [facility] - DOS ON OR AFTER 2022 - ONE CARE (MEDICARE REPLACEMENT/ADV ANTAGE - HMO) Atiya Dotson [id number] Atiya Dotson Notes Date Note Type Note Provider Name and Address Organization Details Recorded Time 06/10/2024 text/html I am seeing the patient today under the supervision of {{ Brothers#}} who was available but who did not see the patient. HISTORY OF PRESENT ILLNESS The patient presents today for a follow-up, now two weeks status post {{Left* Right}} total knee arthroplasty. Happy with the results. No significant complaints of pain. Doing well with P.T. she continues with outpatient physical therapy. Utilizing oxycodone and Tylenol for pain relief. Continues icing and elevating. She is on Eliquis for DVT prophylaxis. ROM with therapy is {{ 3-102#}} degrees. PAST MEDICAL/SURGICAL HISTORY Reviewed today, otherwise unchanged per intake sheet. REVIEW OF SYSTEMS Systemic: No fever and no chills. Cardiovascular: No chest pain or discomfort. Pulmonary: No dyspnea. PHYSICAL FINDINGS General Appearance: Well developed. ? ? ? In no acute distress. Musculoskeletal System: Lower Leg: General/bilateral: ? ? ? Calves of both lower legs were not tender on palpation. Neurological: Oriented to time, place, and person. Gait And Stance: An operative sided antalgic gait was observed without assistive device. Psychiatric: Mood was appropriate to the affect. ROM is as above degrees. Moderate effusion noted Stable to varus/valgus stress. Extensor mechanism is intact. Normal sensation bilateral lower extremities Contralateral side shows no warmth, erythema, soft tissue swelling or effusion. TESTS X-rays ordered, obtained and reviewed at [facility] today, three views, reveals maintained alignment of the prosthetic components, no fractures or dislocations, excellent interface, patella tracking centrally. ASSESSMENT Progressing nicely two weeks status post {{Left* Right}} total knee arthroplasty. PLAN The patient is progressing nicely and will continue total knee precautions. Continue to work on range of motion and strengthening exercises. Follow-up in two weeks for re-evaluation, sooner if there is any complications. Alonzo Singleton PA-C [address], [place], [address], [facility] - [facility] 06/10/2024 14:26:17 OBGyn Episode No OBEpisode recorded.
--- OUTSIDE RECORDS SUMMARY | 2024-06-15 22:13 | XMS_ITS | Encounter Summary ---
Author Organization [employer] Address [address] [place] [address] [address] [place] [address] Care Team Providers Care Manufacturing Leader Name Role Phone Maddie Kim MD Primary Care Provider [phone] Reason for Visit * Reason Onset Date Comments Hospital Follow-up 03/28/2024 Encounter Details Date Type Department Care Team ([facility] Contact Info) Description 03/28/2024 Telephone [facility] [address] [place], [place] [phone] Maddie Kim MD [address] [place], [place] [phone] Hospital Follow-up Social History Tobacco Use Types Packs/Day Years Used Date Smoking Tobacco: Former Cigarettes 0.5 25.3 S tarted: 02/19/1999 Passive Smoke Exposure: [...] from pt requesting a HDF appt. Hospital: [facility] Date of admission: 03/24/24 Discharge date: 03/27/24 Diagnosed: Hyponatremia *Send message to [facility] Clinical Care Coordinators documented in this encounter Plan of Treatment Upcoming Encounters Date Type Department Care Team (Late st Contact Info) Description 07/01/2024 11:30 AM EDT Telemedicine [facility] [address] [place] [address] Maddie Kim MD [address] [place] [phone] documented as of this encounter Visit Diagnoses Not on filedocumented in this encounter Additional Health Concerns Assessment Noted Time PHQ-9 Depression Total Score: 3 06/15/19 24 11:48 AM EDT documented as of this encounter Care Teams Manufacturing Leader Relationship Specialty Start Date End Date Maddie Kim MD [address] [place] [id number] PCP - General Family Medicine 07/12/20 Willie Gage 11/29/22 documented as of this encounter
--- OUTSIDE RECORDS SUMMARY | 2024-06-15 22:13 | XMS_ITS | Encounter Summary ---
Author Organization [employer] Address [address] [facility] [address] [place] [address] Care Team Providers Care Microsoft Bi Developer Name Role Phone Maddie Kim MD Primary Care Provider [phone] Encounter Details Date Type Department Care Team ([facility] st Contact Info) Description 06/13/2023 Orders Only [facility] [address] [place], [place] [phone] Maddie Kim MD [address] [place], [place] [phone] Social History Tobacco Use Types Packs/Day Years [...] EDT Telemedicine [facility] [address] [place] [address] Maddie Kim MD [address] [place] [address] documented as of this encounter Visit Diagnoses Not on filedocumented in this encounter Additional Health Concerns Assessment Noted Time PHQ-9 Depression Total Score: 0 05/30/19 23 3:26 PM EDT documented as of this encounter Care Teams [employer] Bi Developer Relationship Specialty Start Date End Date Maddie Kim MD [address] [place] [address] PCP - General Family Medicine 07/12/20 Willie Gage 01/17/22 documented as of this encounter
--- OUTSIDE RECORDS SUMMARY | 2024-06-15 22:13 | XMS_ITS | Encounter Summary ---
Author Organization [facility] Address [address] [place] [address] Care Team Providers Care Diet Therapist Name Role Phone Darya Lopez MD Primary [...] Care Team Description 01/22/2014 Telephone Adult Medicine [address] [address] Darya Lopez MD Orders Call Social History [...] - 01/22/2014 6:50 PM EST MEDICAL RESOURCES [facility] IS FAXING ORDERS TO DR LOPEZ SIGNED AND FAX BACK TO [phone] documented in this encounter Plan of Treatment Not on file documented as of this encounter Visit Diagnoses Not on filedocumented in this encounter Care Teams Diet Therapist Relationship Specialty Start Date End Date Darya Lopez MD PCP - General 06/30/10 03/15/15 [facility], Pcp PCP - General Internal Medicine 03/16/15 06/20/16 Darya Lopez MD PCP - General Internal Medicine 06/21/16 11/12/16 Lewis Espino MD PCP - General Internal Medicine 11/13/16 Dipesh Kern MD PCP - General Internal Medicine 10/15/18 [place] Callaway MD PCP - General Internal Medicine 03/23/21 documented as of this encounter
--- OUTSIDE RECORDS SUMMARY | 2024-06-15 22:13 | XMS_ITS | Encounter Summary ---
Author Organization [facility] Address [address] [place] [address] Care Team Providers Care Inventory Control Coordinator Name Role Phone Darya Hamilton MD Primary Care Provider Unanile Beasley, Pcp Primary Care Provider Unavailabl e Darya Hamilton MD Primary Care Provider Unava Lewis Galvan MD Primary Care Provider Un available Dipesh Kern MD Primary Care Provide r Unavailable Becca Hinkle MD Primary Care Provider Unavailable Encounter Details Date Type Department Care Team Description 04/23/2012 Manager Chinese Report Medical Records [address] [place] [id number] Karlie Concepcion MD Social History Tobacco Use [...] on filedocumented in this encounter Care Teams Inventory Control Coordinator Relationship Specialty Start Date End Date Darya Hamilton MD PCP - General 06/30/10 03/15/15 [facility], Pcp PCP - General Internal Medicine 03/16/15 06/20/16 Darya Hamilton MD PCP - General Internal Medicine 06/21/16 11/12/16 Lewis Espino MD PCP - General Internal Medicine 11/13/16 Dipesh Kern MD PCP - General Internal Medicine 10/15/18 Becca Hinkle, MD PCP - General Internal Medicine 03/23/21 documented as of this encounter
--- OUTSIDE RECORDS SUMMARY | 2024-06-15 22:13 | XMS_ITS | Encounter Summary ---
Author Organization [facility] Address [address] [place] [address] Care Team Providers Care Sugar Controller Name Role Phone Darya Hamilton MD Primary Care Provider Ronak Beasley, Pcp Primary Care Provider Unavailabl e Darya Hamilton MD Primary Care Provider Unava Lewis Galvan MD Primary Care Provider Un available Dipesh Kern MD Primary Care Provide r Unavailable Becca Hinkle MD Primary Care Provider Unavailable Reason for Visit * Reason Comments E-prescribe Rx Request Encounter Details Date Type Department Care Team Description 05/09/2014 Refill General Surgery [address] [place] [id number] Per Wellington MD [address] [place] [id number] E-prescribe Rx Request Social History Tobacco Use Types Packs/Day [...] on filedocumented in this encounter Care Teams Sugar Controller Relationship Specialty Start Date End Date Darya Hamilton MD PCP - General 06/30/10 03/15/15 [facility] PCP - General Internal Medicine 03/16/15 06/20/16 Darya Hamilton MD PCP - General Internal Medicine 06/21/16 11/12/16 Lewis Espino MD PCP - General Internal Medicine 11/13/16 Dipesh Kern MD PCP - General Internal Medicine 10/15/18 [place]-[facility] Callaway MD PCP - General Internal Medicine 03/23/21 documented as of this encounter
--- OUTSIDE RECORDS SUMMARY | 2024-06-15 22:13 | XMS_ITS | Clinical Summary ---
Author Organization Unknown Care Team Providers Care Research Dietitian Name Role Phone MARLON AHUMADA, JEAN-PIERRE Unavailable Unavailable ENRIQUE WEINSTEINW, WINNIE Unavailable Unavailable KATINA RN, ANASTACIA Unavailable Unavailable SMILEY RN, JENNI Unavailable Unavailable JAVIER RN, GABBY Unavailable Unavaila ble Payers Payer Name Policy Type Policy Number Effective Date Expira tion Date [facility] [place] [id number] [place] 2008 MEDICARE - [facility]/OR - PD [id number] Problems Condition Name Condition Details Condition Category Status Onset Date Resolution Date Last Treatment Date Treating Clinician Comments BIPOLAR DISORD, 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 Active 2021-02 00:00: 00 UNILATERAL PRIMARY OSTEOARTHRIT IS, LEFT KNEE Active 05-29 00:00: 00 OBESITY, UNSPECIFIED Active 05-29 00:00: 00 ALCOHOL ABUSE, IN REMISSION Active 05-29 00:00: 00 Allergies, Adverse Reactions, Alerts Allergy Name Allergy Type Status Severity Reaction(s) Onset Date Inactive Date Treating Clinician Comments PENICILLIN ANALOGS Propensity to adverse reactions Active 2021-02 11:51: 13 DILANTIN KAPSEAL Propensity to adverse reactions Active 2021-02 11:51: 25 DILAUDID Propensity to adverse reactions Active 05-29 22:33: 01 BACTRIM Propensity to adverse reactions Active 05-29 22:33: 41 Medications Ordered Medication Name Filled Medication Name Start Date Stop Date Current Medication? Ordering Clinician Indication Dosage Frequency Signature (SIG) Comments Components baclofen 10 mg tablet 2020-02 00:00: 00 03-07 00:00 :00 No [id number] 10 mg 3 TIMES DAILY 10 mg 3 TIMES DAILY (route: oral) Med Classific ation: Locomotor System buprenorphi ne 4 mg-naloxone 1 mg sublingual film 2020-02 00:00: 00 04-05 00:00 :00 No [id number] Per instruc tions NEEDED Per instructio ns NEEDED (route: sublingual ) Med Classific ation: Chemical Dependenc y, Agents to Treat divalproex 250 mg tablet,kassandra yed release 2020-02 00:00: 00 04-05 23:59 :00 No [id number] 250 mg DAILY 250 mg DAILY (route: oral) Med Classific ation: Central Nervous System Agents divalproex ER 500 mg tablet,exte nded release 24 hr 2020-02 00:00: 00 04-05 00:00 :00 No [id number] 500 mg 2 TIMES DAILY 500 mg 2 TIMES DAILY (route: oral) Med Classific ation: Central Nervous System Agents ferrous sulfate 325 mg (65 mg iron) tablet 2020-02 00:00: 00 04-05 00:00 :00 No [id number] 1 tablet DAILY 1 tablet DAILY (route: oral) Med Classific ation: Electroly te Balance-N utritiona l Products Invega Sustenna 156 mg/mL intramuscul ar syringe 2020-02 00:00: 00 05-11 23:59 :00 No [id number] 156 mg MONTHLY 156 mg MONTHLY (route: intramuscu lar) Med Classific ation: Central Nervous System Agents levothyroxi ne 25 mcg tablet 2020-02 00:00: 00 03-05 23:59 :00 No [id number] 25 mcg DAILY 25 mcg DAILY (route: oral) Med Classific ation: Endocrine lisinopril 5 mg tablet 2020-02 00:00: 00 11-21 23:59 :00 No [id number] 5 mg DAILY 5 mg DAILY (route: oral) Med Classific ation: Cardiovas cular Therapy Agents nicotine (polacrilex ) 4 mg gum 2020-02 00:00: 00 09-12 23:59 :00 No [id number] 4 gum NEEDED 4 gum NEEDED (route: buccal) Med Classific ation: Chemical Dependenc y, Agents to Treat nicotine 21mg/24hr-1 4mg/24hr-7m g/24hr daily transderm patches,seq uentl 2020-02 00:00: 00 09-12 23:59 :00 No [id number] 21 patch NEEDED 21 patch NEEDED (route: transderma l) Med Classific ation: Chemical Dependenc y, Agents to Treat nystatin 500,000 unit tablet 2020-02 00:00: 00 04-05 00:00 :00 No [id number] In unit 4 TIMES DAILY [id number] In unit 4 TIMES DAILY (route: oral) Med Classific ation: Anti-Infe ctive Agents omeprazole 20 mg tablet,kassandra yed release 2020-02 00:00: 00 Yes [id number] 20 mg DAILY 20 mg DAILY (route: oral) Med Classific ation: Gastroint estinal Therapy Agents prazosin 5 mg capsule 2020-02 00:00: 00 02-14 23:59 :00 No [id number] 5 capsule BEDTIME 5 capsule BEDTIME (route: oral) Med Classific ation: Cardiovas cular Therapy Agents trazodone 50 mg tablet 2020-02 00:00: 00 01-17 23:59 :00 No [id number] 50 mg NEEDED 50 mg NEEDED (route: oral) Med Classific ation: Central Nervous System Agents albuterol sulfate HFA 90 mcg/actuati on aerosol inhaler 04-05 00:00: 00 Yes [id number] 2 puff NEEDED 2 puff NEEDED (route: inhalation ) Med Classific ation: Respirato ry Therapy Agents Aspercreme with Aloe 10 % topical 04-05 00:00: 00 09-12 23:59 :00 No [id number] Per instruc tions NEEDED Per instructio ns NEEDED (route: topical) Med Classific ation: Dermatolo gical cyclobenzap rine 5 mg tablet 04-05 00:00: 00 01-17 23:59 :00 No [id number] 5 mg NEEDED 5 mg NEEDED (route: oral) Med Classific ation: Locomotor System Depakote 500 mg tablet,kassandra yed release 15 00:00: 00 05-06 23:59 :00 No [id number] 1000 mg 2 TIMES DAILY 1000 mg 2 TIMES DAILY (route: oral) Med Classific ation: Central Nervous System Agents diphenhydra mine 25 mg capsule 15 00:00: 00 06-01 23:59 :00 No [id number] 50 mg NEEDED 50 mg NEEDED (route: oral) Med Classific ation: Respirato ry Therapy Agents hydroxyzine HCl 50 mg tablet 04-05 00:00: 00 06-01 23:59 :00 No [id number] 50 mg 3 TIMES DAILY 50 mg 3 TIMES DAILY (route: oral) Med Classific ation: Central Nervous System Agents naltrexone 50 mg tablet 04-05 00:00: 00 06-01 23:59 :00 No [id number] 50 mg DAILY 50 mg DAILY (route: oral) Med Classific ation: Antidotes and other Reversal Agents Narcan 4 mg/actuatio n nasal spray 04-05 00:00: 00 06-01 23:59 :00 No [id number] Per instruc tions NEEDED Per instructio ns NEEDED (route: nasal) Med Classific ation: Antidotes and other Reversal Agents pyridoxine (vitamin B6) 25 mg tablet 04-05 00:00: 00 06-01 23:59 :00 No [id number] 25 mg DAILY 25 mg DAILY (route: oral) Med Classific ation: Electroly te Balance-N utritiona l Products Invega Sustenna 234 mg/1.5 mL intramuscul ar syringe 3-24 00:00: 00 Yes [id number] Per instruc tions MONTHLY Per instructio ns MONTHLY (route: intramuscu lar) Med Classific ation: Central Nervous System Agents Invega Sustenna 234 mg/1.5 mL intramuscul ar syringe 8-14 00:00: 00 11-30 23:59 :00 No [id number] 234 mg MONTHLY 234 mg MONTHLY (route: intramuscu lar) Med Classific ation: Central Nervous System Agents Celebrex 200 mg capsule 2021-02 0-26 00:00: 00 03-20 23:59 :00 No [id number] 200 mg 2 TIMES DAILY 200 mg 2 TIMES DAILY (route: oral) Alternate Route: NONE. Med Classific ation: Analgesic , Anti-infl ammatory or Antipyret ic Celebrex 200 mg capsule 1-30 00:00: 00 01-10 23:59 :00 No [id number] 200 mg DAILY 200 mg DAILY (route: oral) Alternate Route: NONE. Med Classific ation: Analgesic , Anti-infl ammatory or Antipyret ic docusate sodium 100 mg capsule - 00:00: 00 01-29 23:59 :00 No [id number] 1 capsule 2 TIMES DAILY 1 capsule 2 TIMES DAILY (route: oral) Alternate Route: NONE. Med Classific ation: Gastroint estinal Therapy Agents Eliquis 2.5 mg tablet 03-20 00:00: 00 09-12 23:59 :00 No [id number] 1 tablet 2 TIMES DAILY 1 tablet 2 TIMES DAILY (route: oral) Med Classific ation: Hematolog ical Agents oxycodone 5 mg tablet -30 00:00: 00 04-18 23:59 :00 No [id number] Per instruc tions DIRECTED Per instructio ns DIRECTED (route: oral) Alternate Route: NONE. Med Classific ation: Analgesic , Anti-infl ammatory or Antipyret ic tramadol 50 mg tablet -30 00:00: 00 04-18 23:59 :00 No [id number] Per instruc tions DIRECTED Per instructio ns DIRECTED (route: oral) Med Classific ation: Analgesic , Anti-infl ammatory or Antipyret ic gabapentin 300 mg capsule 3-29 00:00: 00 01-10 23:59 :00 No [id number] 1 capsule 3 TIMES DAILY 1 capsule 3 TIMES DAILY (route: oral) Med Classific ation: Central Nervous System Agents cyclobenzap rine 5 mg tablet 7-27 00:00: 00 01-10 23:59 :00 No [id number] 1 tablet 3 TIMES DAILY 1 tablet 3 TIMES DAILY (route: oral) Med Classific ation: Locomotor System baclofen 10 mg tablet 2022-02 1-24 00:00: 00 03-30 23:59 :00 No [id number] 1 tablet DIRECTED 1 tablet DIRECTED (route: oral) Med Classific ation: Locomotor System docusate sodium 100 mg capsule 2022-02- 00:00: 00 Yes [id number] 1 capsule NEEDED 1 capsule NEEDED (route: oral) Med Classific ation: Gastroint estinal Therapy Agents acetaminoph en 300 mg-codeine 30 mg tablet 03-30 00:00: 00 05-15 23:59 :00 No [id number] 1 tablet 3 TIMES DAILY 1 tablet 3 TIMES DAILY (route: oral) Med Classific ation: Analgesic , Anti-infl ammatory or Antipyret ic Paxlovid 300 mg (150 mg x 2)-100 mg tablets in a dose pack 03-30 00:00: 00 04-03 23:59 :00 No [id number] 3 tablet 2 TIMES DAILY 3 tablet 2 TIMES DAILY (route: oral) Med Classific ation: Anti-Infe ctive Agents tizanidine 4 mg tablet 03-30 00:00: 00 01-03 23:59 :00 No [id number] 1 tablet 3 TIMES DAILY 1 tablet 3 TIMES DAILY (route: oral) Med Classific ation: Locomotor System Depakote 500 mg tablet,kassandra yed release 05-11 00:00: 00 03-31 23:59 :00 No [id number] 1000 mg 2 TIMES DAILY 1000 mg 2 TIMES DAILY (route: oral) Med Classific ation: Central Nervous System Agents multivitami n tablet 06-03 00:00: 00 04-21 23:59 :00 No [id number] 1 tablet DIRECTED 1 tablet DIRECTED (route: oral) Med Classific ation: Electroly te Balance-N utritiona l Products gabapentin 300 mg capsule - 00:00: 00 04-24 23:59 :00 No [id number] 2 capsule 3 TIMES DAILY 2 capsule 3 TIMES DAILY (route: oral) Med Classific ation: Central Nervous System Agents paliperidon e ER 1.5 mg tablet,exte nded release 24 hr 07-10 00:00: 00 11-22 23:59 :00 No [id number] 1 tablet DAILY 1 tablet DAILY (route: [...] utritiona l Products minoxidil 2.5 mg tablet 2024-0 7-08 00:00: 00 12-17 23:59 :00 No .25 [...] Therapy Agents minoxidil 2.5 mg tablet 2023-02 00:00: 00 Yes 0.5 tablet DAILY 0.5 [...] Agents Laxative (bisacodyl) 5 mg tablet 2023-02 2 00:00: 00 Yes 2 tablet BEDTIME 2 tablet BEDTIME (route: oral) Med Classific ation: Gastroint estinal Therapy Agents nitrofurant oin monohydrate /macrocryst als 100 mg capsule 1- 00:00: 00 02-28 23:59 :00 No 1 capsule EVERY 12 HOURS 1 capsule EVERY 12 HOURS (route: oral) Med Classific ation: Genitouri nary Therapy metformin ER 500 mg tablet,exte nded release 24 hr - 00:00: 00 04-21 23:59 :00 No 2 tablet EVERY PM 2 tablet EVERY PM (route: oral) Med Classific ation: Endocrine thiamine HCl (vitamin B1) 100 mg tablet - 00:00: 00 05-13 23:59 :00 No 1 tablet EVERY AM 1 tablet EVERY AM (route: oral) Med Classific ation: Electroly te Balance-N utritiona l Products Seroquel 50 mg tablet 03-24 00:00: 00 04-21 23:59 :00 No 1 tablet BEDTIME 1 tablet BEDTIME (route: oral) Med Classific ation: Central Nervous System Agents cyclobenzap rine 10 mg tablet 2023-0218 00:00: 00 05-30 23:59 :00 No 1 tablet 3 TIMES [...] 380 mg intramuscul ar suspension, extended release - 00:00: 00 Yes Per instruc tions MONTHLY Per instructio ns MONTHLY (route: intramuscu lar) Med Classific ation: Chemical Dependenc y, Agents to Treat Depakote 250 mg tablet,kassandra yed release 2-11 00:00: 00 04-21 23:59 :00 No 1 tablet 2 TIMES DAILY 1 tablet 2 TIMES DAILY (route: oral) Med Classific ation: Central Nervous System Agents Depakote 500 mg tablet,kassandra yed release 2- 00:00: 00 [...] nitrofurant oin macrocrysta l 100 mg capsule 2- 00:00: 00 04-06 23:59 :00 No 1 capsule 2 TIMES DAILY 1 capsule 2 TIMES DAILY (route: oral) Med Classific ation: Genitouri nary Therapy clonazepam 0.5 mg tablet 2-14 00:00: 00 04-09 23:59 :00 No 1 tablet DAILY 1 tablet DAILY (route: oral) Med Classific ation: Central Nervous System Agents propranolol 10 mg tablet 2-14 00:00: 00 04-24 23:59 :00 No 1-2 tablet 3 TIMES DAILY 1-2 tablet 3 TIMES DAILY (route: oral) Med Classific ation: Cardiovas cular Therapy Agents ferrous gluconate 324 mg (37.5 mg iron) tablet 2-20 00:00: 00 04-21 23:59 :00 No 1 tablet DIRECTED 1 tablet DIRECTED (route: oral) Med Classific ation: Electroly te Balance-N utritiona l Products Depakote 250 mg tablet,kassandra yed release - 00:00: 00 04-24 23:59 :00 No 1 tablet BEDTIME 1 tablet BEDTIME (route: oral) Med Classific ation: Central Nervous System Agents Depakote 500 mg tablet,kassandra yed release 04-21 00:00: 00 04-24 23:59 :00 No 1 tablet EVERY AM 1 tablet EVERY AM (route: oral) Med Classific ation: Central Nervous System Agents Topamax 50 mg tablet 3- 00:00: 00 Yes 1 tablet BEDTIME 1 tablet BEDTIME (route: oral) Med Classific ation: Central Nervous System Agents Vraylar 3 mg capsule 3- 00:00: 00 Yes 1 capsule BEDTIME 1 capsule BEDTIME (route: oral) Med Classific ation: Central Nervous System Agents ferrous gluconate 324 mg (37.5 mg iron) tablet 3- 00:00: 00 Yes 1 tablet EVERY AM 1 tablet EVERY AM (route: oral) Med Classific ation: Electroly te Balance-N utritiona l Products gabapentin 300 mg capsule -07 00:00: 00 05-06 23:59 :00 No 1 capsule BEDTIME 1 capsule BEDTIME (route: oral) Med Classific ation: Central Nervous System Agents propranolol 10 mg tablet -06 00:00: 00 Yes Per instruc tions 3 TIMES DAILY Per instructio ns 3 TIMES DAILY (route: oral) Med Classific ation: Cardiovas cular Therapy Agents gabapentin 300 mg capsule -18 00:00: 00 Yes 1 capsule 3 TIMES DAILY 1 capsule 3 TIMES DAILY (route: oral) Med Classific ation: Central Nervous System Agents multivitami n tablet 3-24 00:00: 00 Yes 1 tablet EVERY AM 1 tablet EVERY AM (route: oral) Med Classific ation: Electroly te Balance-N utritiona l Products thiamine HCl (vitamin B1) 50 mg tablet 3-25 00:00: 00 Yes 1 tablet EVERY AM 1 tablet EVERY AM (route: oral) Med Classific ation: Electroly te Balance-N utritiona l Products baclofen 10 mg tablet 4-16 00:00: 00 06-05 23:59 :00 No 1 tablet 3 TIMES DAILY 1 tablet 3 TIMES DAILY (route: oral) Med Classific ation: Locomotor System cyclobenzap rine 10 mg tablet 4-17 00:00: 00 Yes 1 tablet 3 TIMES DAILY 1 tablet 3 TIMES DAILY (route: oral) Med Classific ation: Locomotor System Eliquis 2.5 mg tablet 10 00:00: 00 Yes 1 tablet 2 TIMES DAILY 1 tablet 2 TIMES DAILY (route: oral) Med Classific ation: Hematolog ical Agents oxycodone 10 mg tablet 4-11 00:00: 00 Yes 0.5-1 tablet EVERY 4 HOURS 0.5-1 tablet EVERY 4 HOURS (route: oral) Med Classific ation: Analgesic , Anti-infl ammatory or Antipyret ic tramadol 50 mg tablet 05-29 00:00: 00 Yes 1-2 tablet EVERY 6 HOURS 1-2 tablet EVERY 6 HOURS (route: oral) Med Classific ation: Analgesic , Anti-infl ammatory or Antipyret ic Zepbound 2.5 mg/0.5 mL subcutaneou s pen injector 17 00:00: 00 Yes 2.5 mg WEEKLY 2.5 mg WEEKLY (route: subcutaneo us) Med Classific ation: Weight Loss/Gain Agents baclofen 10 mg tablet 06-05 00:00: 00 Yes 1 tablet 3 TIMES DAILY 1 tablet 3 TIMES DAILY (route: oral) Med Classific ation: Locomotor System HYDROCODONE -ACETAMINOP HEN ORAL 10-07 00:00: 00 [...] ation: ENDOCRINE CHLORPROMAZ INE ORAL 604 00:00: 08-22 00:00 :00 No 100 mgONE TABLET [...] ESTINAL THERAPY AGENTS OMEPRAZOLE ORAL 1-03 00:00: 03-07 00:00 :00 No 20 mg 20 [...] BALANCE-N UTRITIONA L PRODUCTS FERROUS SULFATE ORAL 604 00:00: 08-22 00:00 :00 No 325 mg [...] OR ANTIPYRET IC QUETIAPINE ORAL 6-04 00:00: 08-22 00:00 :00 No [...] SYSTEM AGENTS DIVALPROEX ORAL 0 6-04 00:00: 08-22 00:00 :00 No 250 [...] ) Med Classific ation: ENDOCRINE BANOPHEN ORAL 7 00:00: 00 10-18 00:00 :00 No 50 [...] CENTRAL NERVOUS SYSTEM AGENTS HYDROXYZINE PAMOATE ORAL 2018-0 5-13 00:00: 00 07-31 00:00 :00 No 25 mg 25 mg (route: ) Med Classific ation: CENTRAL NERVOUS SYSTEM AGENTS HYDROXYZINE PAMOATE ORAL 2018-0 4-20 00:00: 00 06-18 00:00 :00 No [...] Med Classific ation: LOCOMOTOR SYSTEM BACLOFEN ORAL 2018-0 6-14 00:00: 00 08-16 00:00 :00 No 10 mgONE TABLET TWO TO THREE TIMES DAILY NEEDED 10 mgONE TABLET TWO TO THREE TIMES DAILY NEEDED (route: ) Alternate Route: (10MG) BY MOUTH . Med Classific ation: LOCOMOTOR SYSTEM BENZTROPINE ORAL 0 7-22 00:00: 00 09-23 00:00 :00 No 0.5 mg 0.5 mg (route: ) Med Classific ation: CENTRAL NERVOUS SYSTEM AGENTS BENZTROPINE ORAL 2018-0 5-10 00:00: 00 07-13 00:00 :00 No 0.5 mg 0.5 mg (route: ) Med Classific ation: CENTRAL NERVOUS SYSTEM AGENTS BENZTROPINE ORAL 0 1-03 00:00: 00 03-07 00:00 :00 No 0.5 mg 0.5 mg (route: ) Med Classific ation: CENTRAL NERVOUS SYSTEM AGENTS BENZTROPINE ORAL 1 2-05 00:00: 00 02-22 00:00 :00 No [...] ation: CENTRAL NERVOUS SYSTEM AGENTS TOPIRAMATE ORAL 2018-0 8-10 00:00: 00 10-12 00:00 :00 No 100 mg 100 mg (route: ) Med Classific ation: CENTRAL NERVOUS SYSTEM AGENTS TOPIRAMATE ORAL 2018-0 7-22 00:00: 00 09-23 00:00 :00 No 100 mg 100 mg (route: ) Med Classific ation: CENTRAL NERVOUS SYSTEM AGENTS PANTOPRAZOL E ORAL 8-10 00:00: 00 10-12 00:00 :00 No 40 mg 40 mg (route: ) Med Classific ation: GASTROINT ESTINAL THERAPY AGENTS PANTOPRAZOL E ORAL 09-18 00:00: 00 10-18 00:00 :00 No 40 [...] Observation Time Observation Value Commen ts Temperature 2024-06-13 10:44:00.000 98.2 [degF] Temperature 2024-06-11 10:42:00.000 98.4 [degF] Temperature 2024-06-09 10:58:00.000 98.6 [degF] Temperature 2024-06-06 11:39:00.000 97.9 [degF] Temperature 2024-06-04 15:38:00.000 97.4 [degF] Temperature 2024-06-04 11:10:00.000 98.1 [degF] Temperature 2024-06-03 09:11:00.000 97.6 [degF] Temperature 2024-06-02 10:59:00.000 97.5 [degF] Temperature 2024-05-30 15:27:00.000 98.1 [degF] Temperature 2024-05-30 11:20:00.000 98.5 [degF] Temperature 2024-05-29 11:30:00.000 99.1 [degF] Temperature 2024-05-23 11:29:00.000 98.1 [degF] Temperature 2024-05-19 11:27:00.000 97.9 [degF] Temperature 2024-05-12 11:27:00.000 97.9 [degF] BMI (%) 2024-05-29 11:30:00.000 39 kg/m2 Height 2024-05-29 11:30:00.000 61 [in_us] Pulse 2024-06-13 10:44:00.000 74 /min Pulse 2024-06-11 10:42:00.000 94 /min Pulse 2024-06-09 10:58:00.000 84 /min Pulse 2024-06-06 11:39:00.000 100 /min Pulse 2024-06-04 15:38:00.000 74 /min Pulse 2024-06-04 11:10:00.000 82 /min Pulse 2024-06-03 09:11:00.000 76 /min Pulse 2024-06-02 10:59:00.000 100 /min Pulse 2024-05-30 15:27:00.000 77 /min Pulse 2024-05-30 11:20:00.000 72 /min Pulse 2024-05-29 11:30:00.000 100 /min Pulse 2024-05-23 11:29:00.000 86 /min Pulse 2024-05-19 11:27:00.000 78 /min Pulse 2024-05-12 11:27:00.000 72 /min Pulse 2024-05-09 11:46:00.000 100 /min O2 Saturation (%) 2024-05-30 11:20:00.000 100 % O2 Saturation (%) 2024-05-12 11:29:00.000 98 % Respirations 2024-06-13 10:44:00.000 16 /min Respirations 2024-06-11 10:42:00.000 16 /min Respirations 2024-06-09 10:58:00.000 16 /min Respirations 2024-06-06 11:39:00.000 16 /min Respirations 2024-06-04 15:38:00.000 18 /min Respirations 2024-06-04 11:10:00.000 16 /min Respirations 2024-06-03 09:11:00.000 18 /min Respirations 2024-06-02 10:59:00.000 16 /min Respirations 2024-05-30 15:27:00.000 16 /min Respirations 2024-05-30 11:20:00.000 16 /min Respirations 2024-05-29 11:30:00.000 16 /min Respirations 2024-05-23 11:29:00.000 16 /min Respirations 2024-05-19 11:27:00.000 16 /min Respirations 2024-05-12 11:27:00.000 16 /min Weight (lbs) 2024-05-29 11:30:00.000 211 [lb_av] Systolic Blood Pressure 2024-06-13 10:44:00.000 120 mm [Hg] Systolic Blood Pressure 2024-06-11 10:42:00.000 102 mm [Hg] Systolic Blood Pressure 2024-06-09 10:58:00.000 96 mm[ Hg] Systolic Blood Pressure 2024-06-06 11:39:00.000 120 mm [Hg] Systolic Blood Pressure 2024-06-04 15:38:00.000 124 mm [Hg] Systolic Blood Pressure 2024-06-04 11:10:00.000 112 mm [Hg] Systolic Blood Pressure 2024-06-03 09:11:00.000 126 mm [Hg] Systolic Blood Pressure 2024-06-02 10:59:00.000 118 mm [Hg] Systolic Blood Pressure 2024-05-30 15:27:00.000 106 mm [Hg] Systolic Blood Pressure 2024-05-30 11:28:00.000 120 mm [Hg] Systolic Blood Pressure 2024-05-29 11:30:00.000 130 mm [Hg] Systolic Blood Pressure 2024-05-19 11:27:00.000 128 mm [Hg] Systolic Blood Pressure 2024-05-12 11:27:00.000 142 mm [Hg] Systolic Blood Pressure 2024-05-09 11:46:00.000 98 mm[ Hg] Diastolic Blood Pressure 2024-06-13 10:44:00.000 84 mm [Hg] Diastolic Blood Pressure 2024-06-11 10:42:00.000 60 mm [Hg] Diastolic Blood Pressure 2024-06-09 10:58:00.000 60 mm [Hg] Diastolic Blood Pressure 2024-06-06 11:39:00.000 80 mm [Hg] Diastolic Blood Pressure 2024-06-04 15:38:00.000 78 mm [Hg] Diastolic Blood Pressure 2024-06-04 11:10:00.000 82 mm [Hg] Diastolic Blood Pressure 2024-06-03 09:11:00.000 84 mm [Hg] Diastolic Blood Pressure 2024-06-02 10:59:00.000 72 mm [Hg] Diastolic Blood Pressure 2024-05-30 15:27:00.000 67 mm [Hg] Diastolic Blood Pressure 2024-05-30 11:28:00.000 80 mm [Hg] Diastolic Blood Pressure 2024-05-29 11:30:00.000 80 mm [Hg] Diastolic Blood Pressure 2024-05-19 11:27:00.000 90 mm [Hg] Diastolic Blood Pressure 2024-05-12 11:27:00.000 90 mm [...] AWARENESS FOR SAFETY AND WILL NOTIFY CLINICAL PASSENGER REPRESENTATIVE AND PHYSICIAN/PROVIDER WITH ANY CHANGE IN CONDITION. [code = SKILLED NURSE WILL MAINTAIN SITUATIONAL AWARENESS FOR SAFETY AND WILL NOTIFY CLINICAL PASSENGER REPRESENTATIVE AND PHYSICIAN/PROVIDER WITH ANY CHANGE IN CONDITION.] [...] CARE WILL BE ESTABLISHED THAT MEETS PATIENT'S [facility] NEEDS AND INCLUDES PATIENT GOAL FOR HOME [...] SELF AND OTHERS THROUGHOUT THE CERTIFICATION PERIOD. Progress Notes Progress Notes <paragraph>[Visit Date: 2024 by GABBY HERRERA RN]:</paragraph><paragraph>PATIENT AO X3. PT COMPLIANT WITH TAKING PREFILLED MEDS. SCHEDULED MEDS PREFILLED X1 WEEK AND P.R.N. OXYCODONE, BACLOFEN, AND GABAPENTIN PREFILLED THROUGH SUNDAY AFTERNOON. PT REPORTS LEFT KNEE PAIN IS IMPROVING AND PATIENT AMBULATING WITH HER CANE. 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 PATIENT'S MOOD IS CURRENTLY STABLE. PT DENIES SI/HI. PT CONTRACTS FOR SAFETY. MEDICATIONS LOCKBOX SECURE.</paragraph> <paragraph>[Visit Date: 2024 by GABBY HERRERA RN]:</paragraph><paragraph>06/11/24 PATIENT X3. PATIENT'S WENT TO [facility] YESTERDAY FOR FOLLOW UP. DRESSING TO LEFT KNEE REMOVED AND WOUND CLOSED. PT CONTINUES TO REPORT SYMPTOMS OF PAIN AND HAS A NEW PRESCRIPTION FOR OXYCODONE 5 MG 1-2 TABS EVERY 6 HOURS -NEEDED FOR SEVERE PAIN. PATIENT VERBALIZED UNDERSTANDING OF MEDICATION. SN PREFILLED OXYCODONE, BACLOFEN, AND GABAPENTIN THROUGH SUNDAY AFTERNOON. PT HAS 1 DAY OF EMERGENCY PREFILLED MEDICATIONS. VITAL SIGNS STABLE. MOOD IS CURRENTLY STABLE. PT DENIES SI/HI. CRISIS PLAN IS IN PLACE.</paragraph> <paragraph>[Visit Date: 2024 by GABBY HERRERA RN]:</paragraph><paragraph>PATIENT AOX3. LEFT KNEE DRESSING DRY AND INTACT. PT REPORTS THAT SHE DROPPED HER RN OXYCODONE BEHIND HER BED LAST NIGHT AND WAS UNABLE TO TO FIND IT. REPORTS LEFT KNEE PAIN 5/10 THIS MORNING. THE REMAINDER OF P.R.N. OXYCODONE PREFILLED FOR TODAY. BACLOFEN AND GABAPENTIN PREFILLED THROUGH SUNDAY AFTERNOON. PATIENT HAS PHYSICAL THERAPY AT [facility] THIS TODAY. PT REPORTS COMPLIANCE WITH TAKING PREFILLED MEDS, APPEARS COMPLIANT PILL ORGANIZER EMPTY APPROPRIATELY. PT. DENIES SI/HI. CRISIS PLAN IS IN PLACE. MEDICATION LOCK SECURE.</paragraph> Encounters Start Date/Time End Date/Time Encounter Type Admission Type Attending [facility] Care Department Encounter ID Discharge Date Discharge Status Discharge Condition Discharge Reason Percent Goals Met 2022-01-17 00:00:00 2024-07-04 00:00:00 Outpatient RECERTIFIC ATION GABBY HERRERA [facility]LY [facility] [id number] 46.15
--- OUTSIDE RECORDS SUMMARY | 2024-06-15 22:13 | XMS_ITS | Encounter Summary ---
Author Organization [employer] Address [address] [facility] 7t [place] [address] Care Team Providers Care Candy Starch Mold Printer Name Role Phone Maddie Kim MD Primary Care Provider [phone] Encounter Details Date Type Department Care Team (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
--- OUTSIDE RECORDS SUMMARY | 2024-06-15 22:13 | XMS_ITS | Encounter Summary ---
Author Organization [facility] Address [address] [place] [address] Care Team Providers Care Forest Resources Professor Name Role Phone Darya Hamilton MD Primary Care Provider Unanile neumann [facility], Pcp Primary Care Provider Unavailabl e Darya Hamilton MD Primary Care Provider Unava Lewis Galvan MD Primary Care Provider Un available Dipesh Kern MD Primary Care Provide r Unavailable Becca Hinkle MD Primary Care Provider Unavailable Reason for Visit * Reason Onset Date Comments Medication 09/11/2013 Encounter Details Date Type Department Care Team Description 09/11/2013 Telephone Adult Medicine [address] [address] Darya Hamilton MD Medication Social History Tobacco [...] The patient Name of the medication ?: INWROJAMUA-QPHA-KQIQGJOY 50-325-40 MG OR TABS (FIORICET, ESGIC) per [...] on filedocumented in this encounter Care Teams Forest Resources Professor Relationship Specialty Start Date End Date Darya Hamilton MD PCP - General 06/30/10 03/15/15 [facility], Pcp PCP - General Internal Medicine 03/16/15 06/20/16 Dayra Hamilton MD PCP - General Internal Medicine 06/21/16 11/12/16 Lewis Espino MD PCP - General Internal Medicine 11/13/16 Dipesh Kern MD PCP - General Internal Medicine 10/15/18 Becca Hinkle MD PCP - General Internal Medicine 03/23/21 documented as of this encounter
--- OUTSIDE RECORDS SUMMARY | 2024-06-15 22:13 | XMS_ITS | Encounter Summary ---
Author Organization [employer] Address [address] [facility] 7t [place] [address] Care Team Providers Care Buttonhole Machine Operator Name Role Phone Maddie Kim MD Primary Care Provider [phone] Reason for Visit * Reason Onset Date Comments New Med Request 06/13/2024 Encounter Details Date Type Department Care Team ([facility] Contact Info) Description 06/13/2024 Telephone [facility] MEDICINE [address] [place], [place] [phone] Maddie Kim MD [address] [place], [place] [phone] New Med Request Social History Tobacco Use Types Packs/Day [...] encounter Miscellaneous Notes * Telephone Encounter - Edwar Comer RN - 06/13/2024 3:13 PM EDT TC placed to Lauren (Visiting Nurse) [phone] regarding below message. Lauren informed RN that the patient needs Vitamin D3 2000 international units cap, she takes 50 mcg daily. The medication was originally ordered by a Psychiatrist and the office spoke with Lauren, for the PCP office to order the Vitamin D3. RN informed Lauren that a message will be set to her PCP. Lauren verbalized understanding. PT to F/U PRN. PCP to review. * Telephone Encounter - Elier Mckinley - 06/13/2024 2:53 PM EDT Tc from Lauren visiting nurse requesting a new RX for Vitamin D-3 If any questions please contact [phone] documented in this encounter Plan of Treatment Upcoming Encounters Date Type Department Care Team (Late st Contact Info) Description 07/01/2024 11:30 AM EDT Telemedicine [facility] [address] [place], [place] [phone] Maddie Kim MD [address] [place] [address] documented as of this encounter Visit Diagnoses Not on filedocumented in this encounter Additional Health Concerns Assessment Noted Time PHQ-9 Depression Total Score: 3 06/15/19 24 11:48 AM EDT documented as of this encounter Care Teams Buttonhole Machine Operator Relationship Specialty Start Date End Date Maddie Kim MD [address] [place] [address] PCP - General Family Medicine 07/12/20 Willie Caring 01/17/22 documented as of this encounter
--- OUTSIDE RECORDS SUMMARY | 2024-06-15 22:13 | XMS_ITS | Encounter Summary ---
Author Organization [employer] Address [address] [place] [address] 7t [place] [address] Care Team Providers Care Asphalt Coater Name Role Phone Maddie Kim MD Primary Care Provider [phone] Reason for Visit * Reason Onset Date Comments FYI 02/15/2024 Encounter Details Date Type Department Care Team ([facility] Contact Info) Description 02/15/2024 Telephone [facility] MEDICINE [address] [place], [place] [phone] Maddie Kim MD [address] [place], [place] [phone] FY Social History Tobacco Use Types Packs/Day [...] any questions you can contact Lauren at [phone]. documented in this encounter Plan of Treatment Upcoming Encounters Date Type Department Care Team (Late st Contact Info) Description 07/01/2024 11:30 AM EDT Telemedicine [facility] MED[facility]INE [address] [place] [address] Maddie Kim MD [address] [place] [address] documented as of this encounter Visit Diagnoses Not on filedocumented in this encounter Additional Health Concerns Assessment Noted Time PHQ-9 Depression Total Score: 3 06/15/19 24 11:48 AM EDT documented as of this encounter Care Teams Asphalt Coater Relationship Specialty Start Date End Date Maddie Kim MD [address] [place] [address] PCP - General Family Medicine 07/12/20 Willie Gage 01/17/22 documented as of this encounter
--- OUTSIDE RECORDS SUMMARY | 2024-06-15 22:13 | XMS_ITS | Encounter Summary ---
Author Organization [facility] Address [address] [place] [address] Care Team Providers Care Arc Air Operator Name Role Phone Darya Hamilton MD Primary Care Provider Ronak Beasley, Pcp Primary Care Provider Unavailabl e Darya Hamilton MD Primary Care Provider Lewis Birmingham MD Primary Care Provider Un available Dipesh Kern MD Primary Care Provide r Unavailable Becca Hnikle MD Primary Care Provider Unavailable Encounter Details Date Type Department Care Team Description 01/23/2014 Release of Information Medical Records [address] [place] [address] Abstract, Provider Social History Tobacco Use Types [...] on filedocumented in this encounter Care Teams Arc Air Operator Relationship Specialty Start Date End Date Darya Hamilton MD PCP - General 06/30/10 03/15/15 [facility], Pcp PCP - General Internal Medicine 03/16/15 06/20/16 Darya Hamilton MD PCP - General Internal Medicine 06/21/16 11/12/16 Lewis Espino MD PCP - General Internal Medicine 11/13/16 Dipesh Kern MD PCP - General Internal Medicine 10/15/18 Becca Hinkle MD PCP - General Internal Medicine 03/23/21 documented as of this encounter
--- OUTSIDE RECORDS SUMMARY | 2024-06-15 22:13 | XMS_ITS | Encounter Summary ---
Author Organization [employer] Address [address] [facility] 7t [place] [address] Care Team Providers Care Clothespin Drier Operator Name Role Phone Maddie Kim MD Primary Care Provider [phone] Reason for Visit * Reason Onset Date Comments Nurse Triage 05/14/2023 Encounter Details Date Type Department Care Team ([facility] st Contact Info) Description 05/14/2023 Telephone [facility] MEDICINE [address] [place], [place] [phone] Maddie Kim MD [address] [place], [place] [phone] Nurse Triage Social History Tobacco Use Types [...] accepted this outcome Any questions to Destiny [phone] documented in this encounter Plan of Treatment Upcoming Encounters Date Type Department Care Team (Late st Contact Info) Description 07/01/2024 11:30 AM EDT Telemedicine [facility] MEDICINE [address] [place] [address] Maddie Kim MD [address] [place] [address] documented as of this encounter Visit Diagnoses Not on filedocumented in this encounter Additional Health Concerns Assessment Noted Time PHQ-9 Depression Total Score: 0 05/30/19 23 3:26 PM EDT documented as of this encounter Care Teams Clothespin Drier Operator Relationship Specialty Start Date End Date Maddie Kim MD [address] [place] [address] PCP - General Family Medicine 07/12/20 Willie Gage 01/17/22 documented as of this encounter
--- OUTSIDE RECORDS SUMMARY | 2024-06-15 22:13 | XMS_ITS | Encounter Summary ---
Author Organization [employer] Address [address] [facility] 7t [place] [address] Care Team Providers Care Stock Checkerer Name Role Phone Maddie Kim MD Primary Care Provider Encounter Details Date Type Department Care Team ([facility] st Contact Info) Description 06/13/2024 Orders Only [facility] MEDICINE [address] [place], [place] [phone] Maddie Kim MD [address] [place], [place] [phone] Social History Tobacco Use Types Packs/Day Years [...] [facility] [address] [place] [address] Maddie Kim MD [address] [place] [address] documented as of this encounter Visit Diagnoses Not on filedocumented in this encounter Additional Health Concerns Assessment Noted Time PHQ-9 Depression Total Score: 3 06/15/19 24 11:48 AM EDT documented as of this encounter Care Teams Stock Checkerer Relationship Specialty Start Date End Date Maddie Kim MD [address] [place] [address] PCP - General Family Medicine 07/12/20 Willie Gage 01/17/22 documented as of this encounter
--- OUTSIDE RECORDS SUMMARY | 2024-06-15 22:13 | XMS_ITS | Encounter Summary ---
Author Organization [facility] Address [address] [place] [address] Care Team Providers Care Television Camera Operator Name Role Phone Darya Hamilton MD Primary Care Provider Ronak Beasley, Pcp Primary Care Provider Unavailabl e Darya Hamilton MD Primary Care Provider Lewis Birmingham MD Primary Care Provider Un available Dipesh Kern MD Primary Care Provide r Unavailable Becca Hinkle MD Primary Care Provider Unavailable Encounter Details Date Type Department Care Team Description 02/27/2014 SCAN Medical Records [address] [place] [address] Abstract, Provider Social History Tobacco Use Types [...] on filedocumented in this encounter Care Teams Television Camera Operator Relationship Specialty Start Date End Date Dayra Hamilton MD PCP - General 06/30/10 03/15/15 [facility], Pcp PCP - General Internal Medicine 03/16/15 06/20/16 Darya Hamilton MD PCP - General Internal Medicine 06/21/16 11/12/16 Lewis Espino MD PCP - General Internal Medicine 11/13/16 Dipesh Kern MD PCP - General Internal Medicine 10/15/18 Figueroa-Becca Callaway MD PCP - General Internal Medicine 03/23/21 documented as of this encounter
--- OUTSIDE RECORDS SUMMARY | 2024-06-15 22:13 | XMS_ITS | Encounter Summary ---
Author Organization [employer] Address [address] [facility] 7t [place] [address] Care Team Providers Care Hemmer Chainstitch Name Role Phone Maddie Kim MD Primary Care Provider [phone] Reason for Visit * Reason Onset Date Comments Call Back Request 07/26/2023 Encounter Details Date Type Department Care Team ([facility] Contact Info) Description 07/26/2023 Telephone [facility] MEDICINE [address] [place] [address] Maddie Kim MD [address] [place], [place] [phone] Call Back Request Social History Tobacco Use [...] 07/27/2023 9:31 AM EDT Tc returned to [facility], questioning pt.'s risperidone inj rx on med list they received. Looking back in chart, this was discontinued after inpatient hosp in 2020 due to noncompliance with injections. This was the last time it was prescribed. [facility] is requesting this is taken off our med list for accuracy, thank you! * Telephone Encounter - Zach Carlson - 07/26/2023 4:12 PM EDT Tc from [facility] with Willie Gage requesting a call back for a med reconciliation. Please contact Georgie at [phone]. documented in this encounter Plan of Treatment Upcoming Encounters Date Type Department Care Team (Late st Contact Info) Description 07/01/2024 11:30 AM EDT Telemedicine [facility] MEDICINE [address] [place] [address] Maddie Kim MD [address] [place], [place] [phone] documented as of this encounter Visit Diagnoses Not on filedocumented in this encounter Additional Health Concerns Assessment Noted Time PHQ-9 Depression Total Score: 3 06/15/19 24 11:48 AM EDT documented as of this encounter Care Teams Hemmer Chainstitch Relationship Specialty Start Date End Date Maddie Kim MD [address] [place] [address] PCP - General Family Medicine 07/12/20 Willie Gage 01/17/22 documented as of this encounter
--- OUTSIDE RECORDS SUMMARY | 2024-06-15 22:13 | XMS_ITS | Patient Health Record ---
Author Organization [facility] Address [address] [place] [address] Care Team Providers Care Loan Expeditor Name Role Phone Maya Wu Primary Care Provider Reshma Sky Unavailable [phone] Allergies Allergen (clinical drug ingredient) Drug/Non Drug [...] Provider Name:Reshma Rena palomino, 07/11/2024 12:30:00 PM, [address] [place] [address], [phone], Insurance Providers Payer Name Payer Address Payer Phone Subscriber Number Group Number Insured Name Patient Relationship to Insured Coverage Start Date Coverage End Date [facility] [employer] Claims [address] [place] [id number] Atiya Dotson Self - patient is the insured Medical (General) History Medical History History ICD Code Anxiety Arthritis Back,Hip,and Knee pain Depression Gall bladder problems High blood pressure Reflux ( GERD) thyroid ulcer Chicken pox Joint implants/screws Surgical History Surgery Date(Month/Year) gastric bypass 2009 bowel obstruction 2019 Right knee replacement 03/13
--- OUTSIDE RECORDS SUMMARY | 2024-06-15 22:13 | XMS_ITS | Continuity of Care Document ---
Author Organization [facility] Address [address] [place] [address] Care Team Providers Care Software Test Manager Name Role Phone JEAN-PIERRE MASON Primary Care Provider [phone] Assessment Encounter Date Assessment Date Assessment LastModified by Organization Details LastModified Time 06/12/2024 06/12/2024 Assessment: Excellent ROM. Weak quad strength, challenged with quad based therex. Plan: Continue PT @ 2x/wk for 8 weeks to decrease pain, increase ROM, optimize mechanics for functional mobility with gait and stairs, and facilitate independence with functional ADL's. [email or web address] Not available 06/13/2024 07:32:01 Plan of Treatment Reminders Order Date Submit Date Provider Last Modified By Organization Details Last Modified Time Details Appointments PT FOLLOW-U P 2024 02:30P M Na Gonzalez, SHINGLES ROOFER Not available Not available Not available PT FOLLOW-U P 2024 02:30P Kolton Gonzalez, SHINGLES ROOFER Not available Not available Not available POST OP 15 2024 01:00P M Alonzo Singleton PA-C Not available Not available Not available PT FOLLOW-U P 2024 10:00A M Hector Pyser, PT Not available Not available Not available PT FOLLOW-U P 2024 09:30A M Hector Pyser, PT Not available Not available Not available PT FOLLOW-U P 2024 10:30A M Hcetor Pyser, PT Not available Not available Not available PT FOLLOW-U P 2024 09:00A M Hector Pyser, PT Not available Not available Not available PT FOLLOW-U P 2024 04:30P M Na Fudge, SHINGLES ROOFER Not available Not available Not available PT FOLLOW-U P 2024 09:30A M Na Fudge, SHINGLES ROOFER Not available Not available Not available PT FOLLOW-U P 2024 09:30A M Na Fudge, SHINGLES ROOFER Not available Not available Not available PT FOLLOW-U P 2024 09:00A M Na Fudge, SHINGLES ROOFER Not available Not available Not available PT FOLLOW-U P 2024 09:30A M Hector Pyser, PT Not available Not available Not available PT FOLLOW-U P 2024 09:30A M Hector Pyser, PT Not available Not available Not available PT FOLLOW-U P 2024 09:30A M Na Fudge, SHINGLES ROOFER Not available Not available Not available PT FOLLOW-U P 2024 09:30A M Na Fudge, SHINGLES ROOFER Not available Not available Not available PT FOLLOW-U P 2024 09:30A M Hector Pyser, PT Not available Not available Not available PT FOLLOW-U P 2024 09:30A M Hector Pyser, PT Not available Not available Not available PT FOLLOW-U P 2024 09:30A M Na Fudge, SHINGLES ROOFER Not available Not available Not available PT FOLLOW-U P 2024 09:30A M Na Fudge, SHINGLES ROOFER Not available Not available Not available RECHECK 10 2024 10:50A M Sage Walker MD Not available Not available Not available Lab None recorded . Referral None recorded . Procedures None recorded . Surgeries None recorded . Imaging None recorded . Medication Orders None recorded . Patient TargetsNo targets recorded. Patient InstructionsNo instructions recorded. Reason for Referral None Reported. Results Created Date Observation Date Name Description Value Unit Range Abnormal Flag Note LastModifiedBy Organization Detail LastModifiedTime 05/28/1905/27/2024 XR, knee, 4 or more view No observ ation record ed. [facility] [address], [place], [address], 05/28/2024 14:53:28 06/11/19 25 06/10/2024 XR, knee, 3 view [email or web address]:/ [email or web address] ?Encry pted=s hAaTro YD8dLq bEUv6g %2BXZw aYqtaq 0bqfl% 2Fg9IQ a4ajBk vP9nXo QUaueC m3YtLR FvZlgJ JJ8mAn HZtai3 2a9748 AC0Kla n2HUqa nKiQtr MwF INTERFACE [facility] [address], [place], [address], 06/10/2024 13:28:17 06/11/19 25 06/10/2024 XR, knee, 3 view [email or web address]:/ [email or web address] ?Encry pted=s hAaTro YD8dLq bEUv6g %2BXZw aYqtaq 0bqfl% 2Fg9IQ a4ajBk vP9nXo QUaueC m3YtLR FvZlgJ JJ8mAn HZtai3 7d4190 AC0Kla n2HUqa nKiQtr MwF INTERFACE [facility] [address], [place], [address], 06/10/2024 13:28:19 Result Notes None recorded. Problems Name Problem SNOMED Code Status Onset Date Resolution Date Notes Provider Name and Address Organization Details Recorded Time Fracture of ankle 38832063 Active 2023 KIM brunson [place] - [facility] 4 15:14:42 No complaints 681228387 Active Status : 'I'; Not Available [facility] 4 09:21:06 Postoperat laurence pain 917660504 Active 2024 Huma Augustin APRN [address], [place], [address] , [facility] - [facility] 5 12:23:32 Mass of joint of left wrist 9162692094261 9101 Active 2023 Cammy Yamile, OTR/L,CHT [address], [place], [address] , [facility] 09:39:49 Problem Notes None recorded. Procedures Surgical History Date Name Laterality Status Provider Name and Address Organization Details Recorded Time 06/13/19 87703: Therapeutic Activities (1:1) completed Na Gonzalez, SHINGLES ROOFER [address], [place], [address], [facility] 06/13/2024 07:27:56 06/13/19 75401 Therapeutic Exercise (1:1) completed Na Gonzalez, SHINGLES ROOFER [address], [place], [address], [facility] 06/13/2024 07:27:26 06/13/19 22268: Manual therapy completed Na Gonzalez, SHINGLES ROOFER [address], [place], [address], [facility] 06/13/2024 07:27:52 06/10/19 43765 Therapeutic Exercise (1:1) completed Hector Pyser, PT [address], [place], [address], [facility] 05/31/2024 14:22:51 06/10/19 01940: Low complexity PT Eval completed Hector Pyser, PT [address], [place], [address], [facility] 05/31/2024 14:22:53 05/01/19 38364 Therapeutic Exercise (1:1) completed Hector Pyser, PT [address], [place], [address], [facility] 04/29/2024 14:50:39 05/01/19 88067: Low complexity PT Eval completed Hector Pyser, PT [address], [place], [address], [facility] 04/29/2024 14:50:41 12/04/19 Sports Knee 4&1 completed Juancarlos Iyer PA-C [address], [place], [address], [facility] 12/04/2023 11:27:50 06/08/19 24 Splint_Short Arm Fiberglass_11+ completed JUNI SHELTON [facility] 06/08/2023 13:25:25 Imaging Results None recorded. Procedure Notes None recorded. Medical Equipment None Reported. Allergies Allergen ID Allergen Name Allergen Category Reaction Reaction Severity Criticality Documentation Date Start Date Code Code System Note Provider Name and Address Organization Details Recorded Time 049926 penicilli n G benzathin e medicatio n Not available Not available Not available 04/23/20232012 [address] [facility] 4 13:22:51 577708 Dilaudid medicatio n Not available Not available Not available 04/23/20232012 39048 [address] [facility] 4 13:22:48 748216 Bactrim medicatio n Not available Not available Not available 04/23/20232020 97760 [address] [facility] 5 14:12:53 Medications Name Sig Start [...] Not Available Vitals None Recorded Social History None recorded. Functional Status None recorded. Mental Status None recorded. Family History Nothing Reported. Medical History Condition Response Allergies/Hayfever N Coronary Artery Disease N Breathing or lung disorders N Anxiety/Depression Y Emphysema N Nerve Disorders N Thyroid Problems N COPD N Pacemaker N Kidney/Bladder Problems N Anemia N Vascular Disease N Heart Trouble N Heart Attack ([place]) N Gastrointestinal Disease N Cholesterol N Diabetes [...] SNOMED-CT Code Diagnosis ICD10 Code Diagnosis Note [id number] Cruzito Sabillon, KATERINA [facility] [address] [place] [address] 05/16/2024 08:50:29 05/30/2024 04:02:27 Osteoarthritis of left knee joint 5594546735 88768 M17.12 [id number] Hector Sams, PT [facility] [address] [place] [address] 06/09/2024 16:25:39 06/09/2024 17:48:56 History of left total knee replacement 9878432744 183065 Z96.652 Z47.1 [id number] [facility] [address] [place] [address] 06/10/2024 12:44:32 06/10/2024 14:26:20 Knee joint prosthesis present 7368391044 02 Z96.085 [id number] Hector Sams, PT [facility] [address] [place] [place] [address] 06/12/2024 11:16:51 06/12/2024 12:04:25 History of left total knee replacement 0524949542 476488 Z96.652 Z47.1 Health Concerns Section Related Observation LastModified by Organization Detai ls LastModified Time None Recorded Concern Status LastModified by Organization Details LastModified Time None Recorded Payers Encounter Date Sequence Insurance Name Policy Number Policy Fernandez Covered Member ID Fernandez Member ID Guarantor Name 06/12/2024 1 [facility] - DOS ON OR AFTER 2022 - ONE CARE (MEDICARE REPLACEMENT/ADV ANTAGE - HMO) Atiya Dotson [id number] Atiya Dotson Notes Date Note Type Note Provider Name and Address Organization Details Recorded Time 06/12/2024 text/html Pt reports 6/10 pain upon entering therapy. Took px medication an hour prior to therapy. Na Gonzalez, SHINGLES ROOFER [address], [place], [address], [facility] - [facility] 06/13/2024 08:33:01 OBGyn Episode No OBEpisode recorded.
--- OUTSIDE RECORDS SUMMARY | 2024-06-15 22:13 | XMS_ITS | Encounter Summary ---
Author Organization [employer] Address [address] [facility] 7t [place] [address] Care Team Providers Care Compressor Engineer Name Role Phone Maddie Kim MD Primary Care Provider [phone] Encounter Details Date Type Department Care Team ([facility] st Contact Info) Description 02/22/2024 Orders Only [facility] [address] [place], [place] [phone] Maddie Kim MD [address] [place], [place] [phone] Social History Tobacco Use Types Packs/Day Years [...] EDT Telemedicine [facility] [address] [place] [address] Maddie Kim MD [address] [place] [address] documented as of this encounter Visit Diagnoses Not on filedocumented in this encounter Additional Health Concerns Assessment Noted Time PHQ-9 Depression Total Score: 3 06/15/19 24 11:48 AM EDT documented as of this encounter Care Teams Compressor Engineer Relationship Specialty Start Date End Date Maddie Kim MD [address] [place] [address] PCP - General Family Medicine 07/12/20 Willie Gage 01/17/22 documented as of this encounter
--- OUTSIDE RECORDS SUMMARY | 2024-06-15 22:13 | XMS_ITS | Clinical Summary ---
Author Organization [employer] Address [address] [place] [address] 7t [place] [address] Care Team Providers Care Commercial Leasing Manager Name Role Phone Maddie Kim MD Primary Care Provider [phone] Allergies Active Allergy Reactions Criticality Noted Date [...] into the muscle every 30 (thirty) days. 022 Active prazosin (Minipress) 5 MG capsule Take 1 capsule by mouth at bed time. Active EPINEPHrine (Epipen) 0.3 MG/0.3ML injection syringe 020 Active divalproex (Depakote) 500 MG EC tablet Take 1,000 mg by mouth 2 times daily. Active Vivitrol injection Active Emollient (Minerin) lotion APPLY TOPICALLY 2-3 TIMES A DAY NEEDED FOR DRY SKIN 473 mL 4 Active albuterol 108 (90 Base) MCG/ACT inhaler Inhale 2 puffs every 6 (six) hours if needed for wheezing. 18 g 11 024 2024 Active minoxidil (Loniten) 2.5 MG tablet Take 0.5 tablets by mouth Once per day. Active celecoxib (CeleBREX) 200 MG capsule Take 200 mg by mouth Once per day. Active lisinopril 40 MG tablet Take 1 tablet (40 mg) by mouth Once per day. 90 tablet 3 024 2024 Active omeprazole (PriLOSEC) [address] capsule TAKE 1 CAPSULE BY MOUTH BEFORE BREAKFAST 90 capsule 3 Active docusate sodium (Colace) 100 MG capsule TAKE 1 CAPSULE BY MOUTH TWICE A DAY 180 capsule 1 Active gabapentin (Neurontin) 600 MG tablet Take 1 tablet twice a day and 2 tabs at bedtime Active QUEtiapine (SEROquel) 50 MG tablet Take 1 tablet by mouth at bedtime. And 1 tab once daily as needed Active topiramate 50 MG tablet Take 1 tablet by mouth Once per day. Active nicotine (Nicoderm, Step 1) 21 MG/24HR patch Place 1 patch on the skin 1 (one) time each day at the same time. Active psyllium (Hydrocil) 95 % packet Take 1 packet by mouth Once per day. Mix and drink with at least 8 ounces of water or juice. Active cyclobenzapri ne (Flexeril) 5 MG tablet Take 1 tablet (5 mg) by mouth if needed in the morning, at noon, and at bedtime for muscle spasms. TAKE 1 TABLET BY MOUTH THREE TIMES A DAY 90 tablet Active ferrous gluconate (Fergon) 324 (38 Fe) MG tablet Take 1 tablet (324 mg) by mouth with breakfast. 90 tablet 3 025 Active Vraylar 1.5 MG capsule 025 Active clonazePAM (KlonoPIN) 0.5 MG tablet 025 Active propranolol (Inderal) 10 MG tablet 025 Active Tirzepatide-W eight Management (Zepbound) 2.5 MG/0.5ML solution auto-injector Inject 0.5 mL (2.5 mg) as directed 1 (one) time per week. INJECT ONE PEN (= 2.5 MG) SUBCUTANEOUSLY ONCE A WEEK 2 mL 025 Active cholecalcifer ol (Vitamin D-3) 50 MCG (1999 UT) capsule Take 1 capsule (50 mcg) by mouth Once per day. 90 capsule 3 Active Blood Pressure kit 1 each 2 times daily. 1 kit 024 2024 Tirzepatide-W eight Management (Zepbound) 2.5 MG/0.5ML solution auto-injector Inject 0.5 mL (2.5 mg) under the skin 1 (one) time per week. 2 mL 3 025 2024 Discontinued(R eorder (will not trigger notification to Pharmacy)) Active [...] (02/23/2023 8:52 AM EST): Will refer to [facility] hand surgeon History of gastrectomy 10/06/2022 Assessment & Plan (04/02/2024 4:07 PM EST): 2009 gastric sleeve Assessment & Plan (10/06/2022 7:52 AM EDT): Refer to [facility] weight loss program for discussion of [...] unspecified obesity type 03/26/2014 Assessment & Plan (05/27/2024 1:01 PM EDT): Will prescribe Zepbound today based on patient's obesity related co morbidities and difficult to control HTN, fatty liver, knee and ankle pain, and LAUREN. She is also engaged in lifestyle and exercise efforts, and has received formal counseling about this multiple times, as well as having received a gastric bypass surgery in 2008. She cannot take Phentermine due to HTN, palpitations and history of LEO. Assessment & Plan (05/31/2022 10:05 AM EDT): Referral to nutrition She is s/p gastric sleeve? I think discuss portion sizes with marketing information coordinator Assessment & Plan (01/29/2022 10:40 AM EST): [...] re-iterated that she can reach us through [employer] if she needs anything Assessment & Plan [...] Encounters Date Type Department Care Team Description 06/13/2024 Orders Only [facility] [place] [address] Maddie Kim MD 06/13/2024 Telephone [facility] [address] [facility] [place] [address] Maddie Kim MD New Med Request 05/30/2024 Refill [facility] [address] [facility] [place] [address] Maddie Kim MD 05/29/2024 Telephone [facility] [address] [facility] [place] [address] Maddie Kim MD verbal order needed 05/26/2024 Telephone [facility] [place] [address] Maddie Kim MD Medication Question 05/19/2024 Telephone [facility] [place] [address] Maddie Kim MD Prior Authorization 05/14/2024 Telephone [facility] [address] Maddie Kim MD Prior Authorization ([facility] PA Request: Zepbound) 05/14/2024 Telephone [facility] [place] [address] Maddie Kim MD Durable Medical Equipment (DME: [facility] One Care: Walker ) 05/06/2024 Orders Only [facility] [place] [address] Maddie Kim MD Primary hypertension (Primary Dx); Tachycardia; Other chest pain 05/05/2024 Telephone [facility] [place] [address] Maddie Kim MD Referral 04/28/2024 Telephone [facility] [facility] [place] [address] Maddie Kim MD Durable Medical Equipment ([facility] [employer] DME Request: Handheld Shower, Shower Chair, Shower Mat) 04/14/2024 Orders Only [facility] [place] [address] Maddie Kim MD 04/10/2024 Telephone [facility] [place] [address] Maddie Kim MD CRITICAL RESULT CALL 04/09/2024 Refill [facility] [place] [address] Maddie Kim MD 04/02/2024 3:30 PM EST Office Visit [facility] [place] [address] Maddie Kim MD Schizoaffective disorder, bipolar type (CMS/HCC) (Primary Dx); Opioid abuse (CMS/HCC); Class 3 severe obesity with serious comorbidity and body mass index (BMI) of 40.0 to 44.9 in adult, unspecified obesity type (CMS/[facility]); Dietary counseling; Exercise counseling; History of gastrectomy; Tachycardia 04/02/2024 Travel 04/02/[address] [address] Maddie Kim MD No Show 03/31/[address] [address] Maddie Kim MD Call Back Request 03/28/[address] [address] Maddie Kim MD FYI 03/28/2024 Patient Outreach [address] [address] Maddie Kim MD Transition Of Care (Tcm) (HDF- Unscheduled- PATIENT REQ. A HDF WITHIN 7 DAYS AND ONLY WITH HER PCP) 03/28/[address] [address] Maddie Kim MD Hospital Follow-up 03/24/[address] [address] Maddie Kim MD 03/24/[address] [address] Sheila Rene, RN NTTS 03/20/[address] NUTRITION APPT REQUEST from Last 3 Months Immunizations Name Administration [...] Info) Description 07/01/2024 11:30 AM EDT Telemedicine [facility] [address] [place], [place] [phone] Maddie Kim MD [address] [place] [address] Health Maintenance Due Date Last Done Comments [...] Cancer Screening 01/21/2027 Pap Smear 01/21/2027 01/22/2024, /05/2022, 12/20/2020 Zoster Vaccines (1 of 2) 10/03/2027 [...] Cortisol Random (04/14/2024 12:47 PM EST) Pathologist [facility] Cortisol Random 5.7 ug/dL [facility] Comment:Reference Range*: Be fore 10 am 6.2-19.4 ug/dL After 5 pm 2.3-11.9 ug/dL*Please interpret above results accordingly.This test was performed using the [employer] chemiluminescentmethod. Values obtained from different assay methods cannotbe used interchangeably.Patients receiving fludrocortisone, prednisolone orprednisone may show artificially elevated cortisol valuesdue to cross-reactivity. 04/14/2024 12:4 7 PM EST 04/14/2024 12:47 PM EST us Generic External Data Provider LAB BLOOD ORDERAB LES Final Result [facility] [address] [place] [address] [phone] * (ABNORMAL) CBC auto differential (04/14/2024 12:47 PM EST) Only the most recent of2 resultswithin the time period is included. White Blood Count 6.5 4.8 - 10.8 X10*3/uL [facility] Red Blood Count 3.74(L) 4.20 - 5.50 X10*6/uL [facility] Hemoglobin 9.4(L) 12.0 - 16.0 g/dl [facility] Hematocrit 29.6(L) 37.0 - 47.0 % [facility] Mean Corpuscular Volume 79.1(L) 80.0 - 98.0 fL [facility] Mean Corpuscular Hemoglobin 25.1(L) 27.0 - 33.0 pg [facility] Mean Corpuscular HGB Conc 31.8 31.0 - 35.0 g/dl [facility] Red Cell Distribution Width 16.1(H) 11.0 - 16.0 % [facility] Platelet Count 530(H) 160 - 400 X10*3/uL [facility] Mean Platelet Volume 9.6 9.4 - 12.3 fL [facility] Neutrophils Percent Auto 56.2 45 - 73 % [facility] Imm Gran Pct Auto 0.6(H) 0.0 - 0.4 % [facility] Lymphocytes Percent Auto 32.5 20 - 40 % [facility] Monocytes Percent Auto 8.8 2 - 11 % [facility] Eosinophils Percent Auto 1.4 0 - 4 % [facility] Basophils Percent Auto 0.5 0 - 2 % [facility] NRBC Pct Auto 0.0 0.0 - 0.2 /100WBC [facility] Neutrophils Absolute Auto 3.7 2.0 - 8.3 x10*3/uL [facility] Imm Gran Abs Auto 0.04(H) 0.00 - 0.03 X10*3/uL [facility] Lymphocytes Absolute Auto 2.1 1.2 - 4.9 X10*3/uL [facility] Monocytes Absolute Auto 0.6 0.1 - 1.2 X10*3/uL [facility] Eosinophils Absolute Auto 0.1 0.0 - 0.4 X10*3/uL [facility] Basophils Absolute Auto 0.0 0.0 - 0.2 X10*3/uL [facility] NRBC Abs Auto 0.000 0.0 - 0.012 X10*3/uL [facility] 04/14/2024 12:4 7 PM EST 04/14/2024 12:47 PM EST us Gil Brewer MD LAB BLOOD ORDERABLES Final Resul t Performing Organization Address City/[facility] Co de Phone Number [facility] [address] [place] [phone] * Iron And Total Iron Binding Capacity (04/14/2024 12:47 PM EST) [facility] Iron 77 30 - 160 mcg/dL [facility] Total Iron Binding Capacity 339 228 - 428 mcg/dL [facility] Percent Iron Saturation 23 15 - 50 % [facility] Unsaturated Iron Binding 262 ug/dL [facility] 04/14/2024 12:4 7 PM EST 04/14/2024 12:47 PM EST us Gil Brewer MD LAB BLOOD ORDERABLES Final Resul t Performing Organization Address City/[facility] Co de Phone Number [facility] [address] [place] [phone] * (ABNORMAL) Immunofixation, Serum (04/14/2024 12:47 PM EST) [facility] IMMUNOGLOBULIN G 1545 600 - 1640 mg/dL [facility] IMMUNOGLOBULIN A 197 47 - 310 mg/dL [facility] Immunoglobulin M 46(A) 50 - 300 mg/dL [facility] Comment:THIS TEST WAS PERFOR MED AT:[employer] [place] [phone] PARKINSON MD Immunofixation Result SEE NOTE [facility] Comment:Normal pattern. No m onoclonal proteins detected. 04/14/2024 12:4 7 PM EST 04/14/2024 12:47 PM EST us Generic External Data Provider LAB BLOOD ORDERAB LES Final Result Performing Organization Address [facility] Co de Phone Number [facility] [address] [place] [phone] * Ferritin (04/14/2024 12:47 PM EST) Ferritin 61 10 - 250 ng/mL [facility] 04/14/2024 12:4 7 PM EST 04/14/2024 12:47 PM EST Gil Brewer MD LAB BLOOD ORDERABLES Final Resul t Performing Organization Address [facility] de Phone Number [facility] [address] [place] [phone] * (ABNORMAL) Basic Metabolic Panel (04/14/2024 12:47 PM EST) Only the most recent of2 resultswithin the time period is included. Sodium 139 135 - 145 mmol/L [facility] Potassium 4.3 3.3 - 5.1 mmol/L [facility] Chloride 104 96 - 108 mmol/L [facility] Carbon Dioxide 27 22 - 29 mmol/L [facility] Anion Gap 12 12 - 20 [facility] Urea Nitrogen (BUN) 7(L) 9 - 16 mg/dL [facility] Creatinine, Serum 0.69 0.5 - 1.4 mg/dL [facility] Estimated Glomerular Filt Rate >60 [facility] Comment:Chronic Kidney Disea se: Estimated GFR < 60 mL/min/1.43s6Mrjhtq Kidney Disease: Estimated GFR < 15 mL/min/1.73m2 Glucose 84 60 - 115 mg/dL [facility] Calcium 9.5 8.4 - 10.2 mg/dL [facility] 04/14/2024 12:4 7 PM EST 04/14/2024 12:47 PM EST us Gil Brewer MD LAB BLOOD ORDERABLES Final Resul t Performing Organization Address [facility]/ZIP Co de Phone Number [facility] [address] [place] [phone] * Sodium Without creatinine, Random Urine (04/14/2024 12:45 PM EST) Sodium Urine Random 47.0 mmol/L [facility] 04/14/2024 12:4 5 PM EST 04/14/2024 1:55 PM EST us Generic External Data Provider LAB BLOOD ORDERAB LES Final Result Performing Organization Address [facility] Co de Phone Number [facility] [address] [place] [phone] * (ABNORMAL) Osmolality, Urine (04/14/2024 12:45 PM EST) OSMOLALITY URINE 212(L) 373 - 1,093 mosm/kg [facility] 04/14/2024 12:4 5 PM EST 04/14/2024 1:55 PM EST Generic External Data Provider LAB URINE ORDERAB LES Final Result Performing Organization Address [facility] Co de Phone Number [facility] [address] [place] [phone] * TSH W/Reflex to FT4 (04/02/2024 4:26 PM EST) TSH reflex Free T4 1.46 0.32 - 4.0 uIU/mL [facility] Blood Venous blood specimen / Unknown 04/02/2024 4:26 PM EST 04/02/2024 5:31 PM EST us Maddie Kim MD LAB BLOOD ORDERABLES Final Res ult [facility] [address] [place] [phone] * Pap Smear (01/22/2024 8:03 AM EST) 01/22/2024 8:03 AM EST 01/23/2024 11:00 AM EST Narrative [facility] - 01/25/2024 12:58 PM EST ----- ------- Name: Isaias,Atiya ?Age/Sex: 48/F ? : 1975 Unit#: [id number] ?? Attend Dr: John Schmidt MD ?Re01/22/24 ?Status: DEP REF ? Location: HO.LNP ?Disch: ? ----- ------- SPEC : [id number] ?RECD: 01/23/24-1100 ? STATUS: ??SOUT ? REQ NUM: [id number] ? MAMADOU: 01/22/24 ? SUBM DR: John [...] Copies To: ?? Maddie Kim ?? [address] ?? [place] [address] ?? [phone] ?? John Schmidt MD ?? [facility] ?? [address] ?? [place] [address] ?? [phone] ----- ------- Signed (signature on file) YASSINE Garcia ([facility]) 01/25/24 3358 ? ----- ------- ? END OF REPORT ? us Generic External Data Provider LAB CYTOLOGY NATANAELE RABLES Final Result [facility] [address] [place] [phone] * Lipid Panel, Standard (09/08/2023 8:43 AM EDT) Triglycerides 57 <150 mg/dL [facility] Comment:Desirable Triglyceri de: less than 150 mg/dLBorderline High Triglyceride 150-199 mg/dLHigh Triglyceride: 200-499 mg/dLVery High Triglyceride: greater than or equal to 5OO mg/dL Cholesterol 158 <200 mg/dL [facility] Comment:Desirable Cholestero l: less than 200 mg/dLBorderline High Cholesterol: 200-239 mg/dLHigh Cholesterol: greater than 239 mg/dL LDL Cholesterol Calculated 87 <100 mg/dL [facility] Comment:Desirable LDL: less than 100 mg/dLNear Optimal/Above Optimal LDL: 110- 129 mg/dLBorderline High LDL: 130-159 mg/dLHigh LDL: 160-189 mg/dLVery High LDL: greater than or equal to 190 mg/dL HDL Cholesterol 60 >40 mg/dL [facility] Comment:Desirable HDL: great er than 40 mg/dL Note: This HDL assay may give artificially low results in patients with liver disease. Blood Venous blood specimen / Unknown 09/08/2023 8:43 AM EDT 09/08/2023 11:09 AM EDT us Maddie Kim MD LAB BLOOD ORDERABLES Final Res ult [facility] [address] [place] [phone] [phone] * BI Mammogram Screening Tomosynthesis Bilateral (05/04/2023 4:02 PM EDT) Anatomical Region Laterality Modality Breast Bilateral Mammography 05/04/2023 4:02 PM EDT Narrative 05/26/2023 3:06 PM EDT ? [facility] ? [address] ?[place] [address] ? Mammography Report ? Signed ? Patient: Isaias,Atiya ?MR#: [id number] ? : 1975 ?Acct:[id number] ? Age/Sex: 47 / F ?ADM Date: 03/15/24 ? Loc: HO.MAMMO ? Attending Dr: Maddie Kim MD ? Ordering Physician: aMddie Kim ?Results: 1Negative ? Date of Service: 05/04/23 ?Follow Up: 1 Year From Orig ?? inal Mammogram ? Procedure(s): MM tomosynthesis screening BI ?? Accession Number(s): [id number] ? cc: Maddie Kim ? EXAMINATION: ?? [...] 1503 ? DD/ 1602 ? TD/TT: ? Assignment Clerk: ? Procedure Note Donotuseinterpreter, Image - 05/26/2023 [place] [facility] [address] [place] [address] Mammography Report Signed Patient: Carolyn EsparzaR#: [id number] : 1975Acct:[id number] Age/Sex: 47 / FADM Date: 05/04/23 Loc: MAMMO Attending Dr: Maddie Kim MD Ordering Physician: Jaja Kimults: 1Negative Date of Service: 05/04/23Follow Up: 1 Year From Orig inal Mammogram Procedure(s): MM tomosynthesis screening BI Accession Number(s): [id number] cc: Maddie Kim EXAMINATION: MM SCREENING DIGITAL [...] in OV> 05/26/23 1503 DD/ 1602 TD/TT: Assignment Clerk: Maddie Kim MD IMG BI PROCEDURES Final Result * HPV GENOTYPES 16,18/45 (12/20/2020 12:00 AM EDT) HPV 16 RNA NOT DETECTED NOT DETECTED [facility] HPV 18/45 RNA NOT DETECTED NOT DETECTED [facility] Comment: Methodology: Resident Intern Mediated Amplification The analytical performance characteristics of this assay have been determined by [employer]. The modifications have not been cleared or approved by the FDA. This assay has been validated pursuant to the CLIA regulations and is used for clinical purposes. 12/20/2020 Maddie Kim MD LAB CYTOLOGY ORDERABLES Final Result [facility] [address] from Last 3 Months or Most Recently Relevant to Health Maintenance Insurance [facility] < 67 [place] [id number] Care Teams Commercial Leasing Manager Relationship Specialty Start Date End Date Maddei Kim MD [address] [place] [address] PCP - General Family Medicine 07/12/20 Willie Gage 01/17/22
--- OUTSIDE RECORDS SUMMARY | 2024-06-15 22:14 | XMS_ITS | Encounter Summary ---
Author Organization [email or web address] Address [address] [facility] 7[address] [place] [address] Care Team Providers Care Continuous Vulcanizing Machine Operator Name Role Phone Maddie Kim MD Primary Care Provider [phone] Reason for Visit * Reason Onset Date Comments Med Refill 02/14/2023 Encounter Details Date Type Department Care Team ([facility] Contact Info) Description 02/14/2023 Refill [facility] [address] [place] [phone] Maddie Kim MD [address] [place], [place] [phone] Social History Tobacco Use Types Packs/Day Years [...] Telemedicine [facility] [address] [place] [phone] Maddie Kim MD [address] [place], [place] [phone] documented as of this encounter Visit Diagnoses Not on filedocumented in this encounter Additional Health Concerns Assessment Noted Time PHQ-9 Depression Total Score: 0 05/30/19 23 3:26 PM EDT documented as of this encounter Care Teams Continuous Vulcanizing Machine Operator Relationship Specialty Start Date End Date Maddie Kim MD [address] [place] [address] [phone] PCP - General Family Medicine 07/12/20 Willie Gage 01/17/22 documented as of this encounter
--- OUTSIDE RECORDS SUMMARY | 2024-06-15 22:14 | XMS_ITS | Encounter Summary ---
Author Organization [employer] Address [address] [facility] 7t [place] [address] Care Team Providers Care [employer] Business Analyst Name Role Phone Maddie Kim MD Primary Care Provider [phone] Reason for Visit * Reason Onset Date Comments Med Refill 04/04/2023 Encounter Details Date Type Department Care Team ([facility] st Contact Info) Description 04/04/2023 Refill [facility] [address] [place] [address] [phone] Isac Gonzalez MD [address] [place], [place] [phone] Chronic bilateral low back pain without sciatica [...] Info) Description 07/01/2024 11:30 AM EDT Telemedicine [facility] [address] [place] [address] Maddie Kim MD [address] [place] [address] documented as of this encounter Visit Diagnoses Diagnosis Chronic bilateral low back pain without sciatica documented in this encounter Additional Health Concerns Assessment Noted Time PHQ-9 Depression Total Score: 0 05/30/19 23 3:26 PM EDT documented as of this encounter Care Teams [employer] Business Analyst Relationship Specialty Start Date End Date Maddie Kim MD [address] [place] [address] PCP - General Family Medicine 07/12/20 Willie Gage 01/17/22 documented as of this encounter
--- OUTSIDE RECORDS SUMMARY | 2024-06-15 22:14 | XMS_ITS | Encounter Summary ---
Author Organization [facility] Address [address] [place] [address] Care Team Providers Care Lab Aide Name Role Phone Dipesh Kern MD Primary Care Provide r Unavailable Becca Hinkle MD Primary Care Provider Unavailable Encounter Details Date Type Department Care Team Description 08/26/2020 Legal Transcriber Report Medical Records [address] [place] [id number] Abstract, Provider Social History Tobacco Use Types [...] on filedocumented in this encounter Care Teams Lab Aide Relationship Specialty Start Date End Date Dipesh Kern MD PCP - General Internal Medicine 10/15/18 Becca Hinkle MD PCP - General Internal Medicine 03/23/21 documented as of this encounter
--- OUTSIDE RECORDS SUMMARY | 2024-06-15 22:14 | XMS_ITS | Encounter Summary ---
Author Organization [facility] Address [address] [place] [address] Care Team Providers Care Gin Inspector Name Role Phone Darya Hamilton MD Primary Care Provider Unava ilable Becca Hinkle MD Primary Care Provider Unavailable [facility] Pcp Primary Care Provider Unavailabl e Darya Hamilton MD Primary Care Provider Unava ilable Lewis Espino MD Primary Care Provider Un available Dipesh Kern MD Primary Care Provide r Unavailable Becca Hinkle MD Primary Care Provider Unavailable Encounter Details Date Type Department Care Team Description 09/18/2009 Night Triage Doc Medical Records [address] [place] [address] Abstract, Provider Social History Tobacco Use Types [...] on filedocumented in this encounter Care Teams Gin Inspector Relationship Specialty Start Date End Date Darya Hamilton MD PCP - General 06/30/10 03/15/15 Becca Hinkle MD PCP - General 04/22/0806/29 [facility] Pcp PCP - General Internal Medicine 03/16/15 06/20/16 Darya Hamilton MD PCP - General Internal Medicine 06/21/16 11/12/16 Lewis Espino MD PCP - General Internal Medicine 11/13/16 Dipesh Kern MD PCP - General Internal Medicine 10/15/18 [place]-Becca Callaway MD PCP - General Internal Medicine 03/23/21 documented as of this encounter
--- OUTSIDE RECORDS SUMMARY | 2024-06-15 22:14 | XMS_ITS | Data Portability ---
Author Organization [place] - [facility] Pamella Flynn - [facility] Address [address] [place] [address] Care Team Providers Care Ladle Puller Name Role Phone ALEXIS RANGEL Primary Care [...] By Organization Details Last Modified Time 07/24/2019 [id number] FINAL Reason: GI BLEEDING EXAM# DEPT/EXAM EXAM DATE TIME [id number] CCT - Angio Abd Plevis W-WO Contrast [...] of constipation. Report Read by: ANTONINO WEBSTER [id number] on Jun 06 2019 4:55P Transcribed by: on Jun 06 2019 4:44P Report Electronically Signed by: DR. ANTONINO WEBSTER on: Jun 06 2019 4:55P [id number] [email or web address] Not available 07/24/2019 14:04:23 Reason for Referral None Reported. Problems Name Problem SNOMED Code Status Onset Date Resolution Date Notes Provider Name and Address Organization Details Recorded Time Diarrhea 70848423 Active 2019 MD María Elena Joe [address], [place], [address], [facility] 0 14:09:16 Hematochezia [id number] Active 2019 MD María Elena Joe [address], [place], [address], [facility] 0 14:09:25 Problem Notes None recorded. Medical Equipment None Reported. Allergies Allergen ID Allergen Name Allergen Category Reaction Reaction Severity Criticality Documentation Date Start Date Code Code System Note Provider Name and Address Organization Details Recorded Time 14311 Product containin g penicilli n (product) medicatio n Not available Not available Not available 07/24/2019 47094 8001 SNOMED MD María Elena Joe [address], [place], [address], [facility] 0 14:04:50 95608 Dilaudid medicatio n Not available Not available Not available 07/24/2019 00355 3 RxNorm MD María Elena Joe [address], [place], [address], [facility] 0 14:04:55 Medications Name Sig Start [...] MD [address], [place], [address], [facility] 07/24/2019 14:06:56 What Is Your Level [...] SNOMED-CT Code Diagnosis ICD10 Code Diagnosis Note [id number] Gulshan Lowry MD JYamin - [facility] [address] [place] [id number] 07/24/2019 08:51:48 07/28/2019 10:40:36 Hematochezia 773013715 K92.1 Chronic diarrhea 9534755 09 K52.9 Health Concerns Section Related Observation LastModified by Organization Detai ls LastModified Time None Recorded Concern Status LastModified by Organization Details LastModified Time None Recorded Advance Directives Directive None Recorded Payers Encounter Date Sequence Insurance Name Policy Number Policy Fernandez Covered Member ID Fernandez Member ID Guarantor Name 07/24/2019 1 [place]IC[place] [employer] Atiya Y Orla [id number] Atiya Y Isaias 07/24/2019 2 [place] [facility] Atiya Esparza [id number] Atiya Esparza Notes Date Note Type Note [...] abdominal pain as well. Gulshan Lowry MD [address] [place] [address],[address], [facility] [place], [address], [facility] 07/24/2019 14:21:54 OBGyn Episode No OBEpisode recorded.
--- OUTSIDE RECORDS SUMMARY | 2024-06-15 22:14 | XMS_ITS | Encounter Summary ---
Author Organization [employer] Address [address] [place] [address] 7t [place] [address] Care Team Providers Care Debt Collector Name Role Phone Maddie Kim MD Primary Care Provider [phone] Reason for Visit * Reason Onset Date Comments Durable Medical Equipment 03/02/2022 Encounter Details Date Type Department Care Team ([facility] st Contact Info) Description 03/02/2022 Telephone [facility] MEDICINE [address] [place] [address] Shayna Pritchett, MAJO Durable Medical Equipment Social History Tobacco Use Types Packs/Day Years Used Date Smoking Tobacco: Every Day Cigarettes 0.3 25.3 Started: 02/19/1999 Smokeless Tobacco: Never Alcohol Use [...] send to [facility] Please contact pt at [phone] documented in this encounter Plan of Treatment Upcoming Encounters Date Type Department Care Team (Late st Contact Info) Description 07/01/2024 11:30 AM EDT Telemedicine [facility] MEDICINE [address] [place] [address] Maddie Kim MD [address] [place], [place] [phone] documented as of this encounter Visit Diagnoses Not on filedocumented in this encounter Care Teams Debt Collector Relationship Specialty Start Date End Date Maddie Kim MD [address] [place] [address] PCP - General Family Medicine 07/12/20 Willie Gage 01/17/22 documented as of this encounter
--- OUTSIDE RECORDS SUMMARY | 2024-06-15 22:14 | XMS_ITS | Encounter Summary ---
Author Organization [facility] Address [address] [place] [address] Care Team Providers Care Senior Landscape Architect Name Role Phone Darya Hamilton MD Primary Care Provider Ronak Beasley, Pcp Primary Care Provider Unavailabl e Darya Hamilton MD Primary Care Provider Lewis iBrmingham MD Primary Care Provider Un available Dipesh Kern MD Primary Care Provide r Unavailable Becca Hinkle MD Primary Care Provider Unavailable Encounter Details Date Type Department Care Team Description 09/17/2012 [facility] Medical Records [address] [place] [address] Kin Funes MD Social History Tobacco Use [...] filedocumented in this encounter Care Teams Senior Landscape Architect Relationship Specialty Start Date End Date Darya Hamilton MD PCP - General 06/30/10 03/15/15 [facility], Pcp PCP - General Internal Medicine 03/16/15 06/20/16 Darya Hamilton MD PCP - General Internal Medicine 06/21/16 11/12/16 Lewis Espino MD PCP - General Internal Medicine 11/13/16 Dipesh Kern MD PCP - General Internal Medicine 10/15/18 [place]Becca Callaway MD PCP - General Internal Medicine 03/23/21 documented as of this encounter
--- OUTSIDE RECORDS SUMMARY | 2024-06-15 22:14 | XMS_ITS | Encounter Summary ---
Author Organization [employer] Address [address] [facility] 7t [place] [address] Care Team Providers Care Materials Handling Equipment Operator Name Role Phone Maddie Kim MD Primary Care Provider [phone] Reason for Visit * Reason Comments Med Refill Encounter Details Date Type Department Care Team ([facility] st Contact Info) Description 04/05/2023 Refill [facility] [address] [place] [address] [phone] Isac Gonzalez MD [address] [place], [place] [phone] Chronic bilateral low back pain without sciatica [...] 12:46 PM EST TC to [facility] pharmacy, T3 RX written 03/29/23 for [...] Telemedicine [facility] MEDICINE [address] [place] [address] Maddie Kim MD [address] [place] [address] documented as of this encounter Visit Diagnoses Diagnosis Chronic bilateral low back pain without sciatica documented in this encounter Additional Health Concerns Assessment Noted Time PHQ-9 Depression Total Score: 0 05/30/19 23 3:26 PM EDT documented as of this encounter Care Teams Materials Handling Equipment Operator Relationship Specialty Start Date End Date Maddie Kim MD [address] [place] [address] PCP - General Family Medicine 07/12/20 Willie Gage 01/17/22 documented as of this encounter
--- OUTSIDE RECORDS SUMMARY | 2024-06-15 22:14 | XMS_ITS | Encounter Summary ---
Author Organization [facility] Address [address] [place] [address] Care Team Providers Care Tip Stretcher Name Role Phone Community, Pcp Primary Care Provider UnavailDarya Ness MD Primary Care Provider Unava Lewis Galvan MD Primary Care Provider Un available Dipesh Kern MD Primary Care Provide r Unavailable Becca Hinkle MD Primary Care Provider Unavailable Encounter Details Date Type Department Care Team Description 12/03/2015 Release of Information Medical Records [address] [place] [id number] Abstract, Provider Social History Tobacco Use Types [...] on filedocumented in this encounter Care Teams Tip Stretcher Relationship Specialty Start Date End Date Community, [...]
--- OUTSIDE RECORDS SUMMARY | 2024-06-15 22:14 | XMS_ITS | Encounter Summary ---
Author Organization [facility] Address [address] [place] [address] Care Team Providers Care Automobile Technician Name Role Phone Darya Hamilton MD Primary Care Provider Ronak Beasley, Pcp Primary Care Provider Unavailabl e Darya Hamilton MD Primary Care Provider Lewis [place] MD Primary Care Provider Un available Dipesh Kern MD Primary Care Provide r Unavailable Becca Hinkle MD Primary Care Provider Unavailable Encounter Details Date Type Department Care Team Description 10/10/2012 Controlled Substance Contract with [facility] Medical Records [address] [place] [address] Abstract, Provider Social History Tobacco Use Types [...] on filedocumented in this encounter Care Teams Automobile Technician Relationship Specialty Start Date End Date Darya Hamilton MD PCP - General 06/30/10 03/15/15 [facility], Pcp PCP - General Internal Medicine 03/16/15 06/20/16 Darya Hamilton MD PCP - General Internal Medicine 06/21/16 11/12/16 Lewis Espino MD PCP - General Internal Medicine 11/13/16 Dipesh Kern MD PCP - General Internal Medicine 10/15/18 Becca Hinkle MD PCP - General Internal Medicine 03/23/21 documented as of this encounter
--- OUTSIDE RECORDS SUMMARY | 2024-06-15 22:14 | XMS_ITS | Encounter Summary ---
Author Organization [employer] Address [address] [place] [address] 7t [place] [address] Care Team Providers Care Addressograph Operator Name Role Phone Maddie Kim MD Primary Care Provider [phone] Reason for Visit * Reason Onset Date Comments Prior Authorization 05/19/2024 Encounter Details Date Type Department Care Team ([facility] Contact Info) Description 05/19/2024 Telephone [facility] MEDICINE [address] [place], [place] [phone] Maddie Kim MD [address] [place], [place] [phone] Prior Authorization Social History Tobacco Use Types [...] encounter Miscellaneous Notes * Telephone Encounter - Jaqueline Jewell - 05/21/2024 8:36 AM EDT Tc from pt requesting status on NEW PA for Tirzepatide-Weight Management (Zepbound) 2.5 MG/0.5ML solution auto-injector. Bandage Wrapping Machine Operator advise pt 7-14 business days. Pt verbalized understanding. * Telephone Encounter - Jose A Orellana - 05/19/2024 9:07 AM EDT Tc from pt starting that she talked with her pharmacy and they stated that PCP filled out the PA form wrong and that they had to send it back over so that it can be re done. Pt states that they were informed by the pharmacy that they were gonna re fax it over. Contact pt at [phone] documented in this encounter Plan of Treatment Upcoming Encounters Date Type Department Care Team (Late st Contact Info) Description 07/01/2024 11:30 AM EDT Telemedicine [facility] MEDICINE [address] [place] [address] Maddie Kim MD [address] [place], [place] [phone] documented as of this encounter Visit Diagnoses Not on filedocumented in this encounter Additional Health Concerns Assessment Noted Time PHQ-9 Depression Total Score: 3 06/15/19 24 11:48 AM EDT documented as of this encounter Care Teams Addressograph Operator Relationship Specialty Start Date End Date Maddie Kim MD [address] [place] [address] PCP - General Family Medicine 07/12/20 Willie Gage 01/17/22 documented as of this encounter
--- OUTSIDE RECORDS SUMMARY | 2024-06-15 22:14 | XMS_ITS | Encounter Summary ---
Author Organization [employer] Address [address] [facility] 7t [place] [address] Care Team Providers Care Industrial Maintenance Millwright Name Role Phone Maddie Kim MD Primary Care Provider [phone] Reason for Visit * Reason Comments Med Refill Encounter Details Date Type Department Care Team ([facility] st Contact Info) Description 04/12/2023 Refill [facility] [address] [place] [address] [phone] Isac Gonzalez MD [address] [place], [place] [phone] Chronic bilateral low back pain without sciatica [...] Info) Description 07/01/2024 11:30 AM EDT Telemedicine [facility] MEDICINE [address] [place] [phone] Mdadie Kim MD [address] [place] [address] documented as of this encounter Visit Diagnoses Diagnosis Chronic bilateral low back pain without sciatica documented in this encounter Additional Health Concerns Assessment Noted Time PHQ-9 Depression Total Score: 0 05/30/19 23 3:26 PM EDT documented as of this encounter Care Teams Industrial Maintenance Millwright Relationship Specialty Start Date End Date Maddie Kim MD [address] [place] [address] PCP - General Family Medicine 07/12/20 Willie Gage 01/17/22 documented as of this encounter
--- OUTSIDE RECORDS SUMMARY | 2024-06-15 22:14 | XMS_ITS | Encounter Summary ---
Author Organization [employer] Address [address] [facility] 7t [place] [address] Care Team Providers Care Proofreader Name Role Phone Maddie Kim MD Primary Care Provider [phone] Reason for Visit * Reason Onset Date Comments Verbal orders/ Medication question 05/08/2023 Encounter Details Date Type Department Care Team ([facility] Contact Info) Description 05/08/2023 Telephone [facility] MEDICINE 230 [place], [place] [phone] Maddie Kim MD 230 [place], [place] [phone] Verbal orders/ Medication question Social History Tobacco [...] 05/09/2023 9:54 AM EDT TC placed to [place] at the [facility] and gave VO for half-way for 3 times a week. Pt medications were also reconciled and pt reports using Viviscal OTC for hair growth and Calcium + VitD supplements. * Telephone Encounter - Toña Castillo - 05/08/2023 4:20 PM EDT Tc from [facility] requesting some verbal orders reconciliation for skill nursing 3 times a week. [place] is also requesting a call back to speak about patient's medications. documented in this encounter Plan of Treatment Upcoming Encounters Date Type Department Care Team (Late st Contact Info) Description 07/01/2024 11:30 AM EDT Telemedicine [facility] MEDICINE [address] [place] [address] Maddie Kim MD [address] [place] [address] documented as of this encounter Visit Diagnoses Not on filedocumented in this encounter Additional Health Concerns Assessment Noted Time PHQ-9 Depression Total Score: 0 05/30/19 23 3:26 PM EDT documented as of this encounter Care Teams Proofreader Relationship Specialty Start Date End Date Maddie Kim MD [address] [place] [address] PCP - General Family Medicine 07/12/20 Willie Gage 01/17/22 documented as of this encounter
--- OUTSIDE RECORDS SUMMARY | 2024-06-15 22:14 | XMS_ITS | Encounter Summary ---
Author Organization [employer] Address [address] [facility] 7t [place] [address] Care Team Providers Care Agriscience Technology Instructor Name Role Phone Maddie Kim MD Primary Care Provider [phone] Reason for Visit * Reason Onset Date Comments Med Refill 04/12/2023 Encounter Details Date Type Department Care Team ([facility] st Contact Info) Description 04/12/2023 Refill [facility] MEDICINE 230 [place], [place] [phone] Maddie Kim MD 230 [place], [place] [phone] Chronic bilateral low back pain without sciatica [...] Telemedicine [facility] MEDICINE [address] [place] [address] Maddie Kim MD [address] [place] [address] documented as of this encounter Visit Diagnoses Diagnosis Chronic bilateral low back pain without sciatica documented in this encounter Additional Health Concerns Assessment Noted Time PHQ-9 Depression Total Score: 0 05/30/19 23 3:26 PM EDT documented as of this encounter Care Teams Agriscience Technology Instructor Relationship Specialty Start Date End Date Maddie Kim MD [address] [place] [address] PCP - General Family Medicine 07/12/20 Willie Gage 01/17/22 documented as of this encounter
--- OUTSIDE RECORDS SUMMARY | 2024-06-15 22:14 | XMS_ITS | Encounter Summary ---
Author Organization [employer] Address [address] [facility] 7t [place] [address] Care Team Providers Care End Frazer Name Role Phone Maddie Kim MD Primary Care Provider [phone] Reason for Visit * Reason Onset Date Comments Med Refill 05/10/2023 Encounter Details Date Type Department Care Team ([facility] st Contact Info) Description 05/10/2023 Refill [facility] MEDICINE [address] [place], [place] [phone] Maddie Kim MD 230 [place], [place] [phone] Chronic bilateral low back pain without sciatica [...] 07/01/2024 11:30 AM EDT Telemedicine [facility] MEDICINE [address] [place] [address] Maddie Kim MD [address] [place] [address] documented as of this encounter Visit Diagnoses Diagnosis Chronic bilateral low back pain without sciatica documented in this encounter Additional Health Concerns Assessment Noted Time PHQ-9 Depression Total Score: 0 05/30/19 23 3:26 PM EDT documented as of this encounter Care Teams End Frazer Relationship Specialty Start Date End Date Maddie Kim MD [address] [place], [place] [phone] PCP - General Family Medicine 07/12/20 Willie Gage 01/17/22 documented as of this encounter
--- OUTSIDE RECORDS SUMMARY | 2024-06-15 22:14 | XMS_ITS | Encounter Summary ---
Author Organization [employer] Address [address] [place] [address] 7t [place] [address] Care Team Providers Care Physical Therapy Instructor Name Role Phone Maddie Kim MD Primary Care Provider [phone] Encounter Details Date Type Department Care Team ([facility] Contact Info) Description 06/26/2022 Abstract [facility] MEDICINE [address] [place] [address] Maddie Kim MD [address] [place] [address] [phone] Social History Tobacco Use Types Packs/Day Years [...] Upcoming Encounters Date Type Department Care Team ([facility] Contact Info) Description 07/01/2024 11:30 AM EDT Telemedicine [facility] MEDICINE [address] [place] [address] Maddie Kim MD [address] [place] [address] documented as of this encounter Visit Diagnoses Not on filedocumented in this encounter Additional Health Concerns Assessment Noted Time PHQ-9 Depression Total Score: 0 05/30/19 23 3:26 PM EDT documented as of this encounter Care Teams Physical Therapy Instructor Relationship Specialty Start Date End Date Maddie Kim MD [address] [place] [address] PCP - General Family Medicine 07/12/20 Willie Gage 01/17/22 documented as of this encounter
--- OUTSIDE RECORDS SUMMARY | 2024-06-15 22:14 | XMS_ITS | Encounter Summary ---
Author Organization [employer] Address [address] [facility] 7t [place] [address] Care Team Providers Care Bariatric Coordinator Name Role Phone Maddie Kim MD Primary Care Provider [phone] Reason for Visit * Reason Onset Date Comments Referral 05/05/2024 Encounter Details Date Type Department Care Team ([facility] Contact Info) Description 05/05/2024 Telephone [facility] MEDICINE [address] [place], [place] [phone] Maddie Kim MD [address] [place], [place] [phone] Referral Social History Tobacco Use Types Packs/Day [...] pt requesting referral that was placed for outdoor adventure guides needs to say URGENT as pt has surgery in May and facility inform availability is for June unless PCP states is urgent. documented in this encounter Plan of Treatment Upcoming Encounters Date Type Department Care Team (Late st Contact Info) Description 07/01/2024 11:30 AM EDT Telemedicine [facility] MEDICINE [address] [place] [address] Maddie Kim MD [address] [place] [address] documented as of this encounter Visit Diagnoses Not on filedocumented in this encounter Additional Health Concerns Assessment Noted Time PHQ-9 Depression Total Score: 3 06/15/19 24 11:48 AM EDT documented as of this encounter Care Teams Bariatric Coordinator Relationship Specialty Start Date End Date Maddie Kim MD [address] [place] [address] PCP - General Family Medicine 07/12/20 Willie Gage 01/17/22 documented as of this encounter
--- OUTSIDE RECORDS SUMMARY | 2024-06-15 22:14 | XMS_ITS | Encounter Summary ---
Author Organization [employer] Address [address] [facility] 7t [place] [address] Care Team Providers Care Senior Supply Chain Analyst Name Role Phone Maddie Kim MD Primary Care Provider [phone] Reason for Visit * Reason Onset Date Comments Med Refill 03/19/2023 Encounter Details Date Type Department Care Team ([facility] Contact Info) Description 03/19/2023 Telephone [facility] MEDICINE 230 [place], [place] [phone] Maddie Kim MD 230 [place], [place] [phone] Med Refill Social History Tobacco Use Types [...] Pt agrees. MD Maddie Saravia RN; [facility] Team Nurses Caller: Unspecified (2 weeks ago) I wrote her a work excuse extending her time for remote work until 04/05/23 * Telephone Encounter - Maddie Crawford RN - 04/02/2023 3:02 PM EST Images from the original note were not included. Triage call regarding Pt portal message below. Pt continues to have symptoms of Covid. Pt was seen in [facility] 03/29/[address] Gonzalez and dx [...] better sooner [facility]. Advised Pt will send [...] - Diagnosed With COVID-19 by Doctor (or PRACTICE COORDINATOR/PA) and Mild Symptoms * General Care Advice for COVID-19 Symptoms * Humidifier * Coughing Spells * Pain and Fever Medicines * Mild Stomach and Intestinal Symptoms During COVID-19 Illness [facility] Clinial Support (supporting Lorrie Alaniz [...] Description 07/01/2024 11:30 AM EDT Telemedicine [facility] MEDICINE [address] [place] [address] Maddie Kim MD [address] [place] [address] documented as of this encounter Visit Diagnoses Not on filedocumented in this encounter Additional Health Concerns Assessment Noted Time PHQ-9 Depression Total Score: 0 05/30/19 23 3:26 PM EDT documented as of this encounter Care Teams Senior Supply Chain Analyst Relationship Specialty Start Date End Date Maddie Kim MD 230 [place] [address] PCP - General Family Medicine 07/12/20 Willie Gage 01/17/22 documented as of this encounter
--- OUTSIDE RECORDS SUMMARY | 2024-06-15 22:14 | XMS_ITS | Clinical Summary ---
Author Organization [facility] Address [address] [place] [address] Care Team Providers Care Cellar Pumper Name Role Phone Figueroa-Becca Callaway MD Primary [...] Bipolar affective disorder Overview: Dr. Lentz at [facility] Resolved Problems Problem Noted Date Resolved Date [...] 03/02/2011 TOBACCO CHECK/ADVISE 11/11/2020 11/11/2018, 11/06/2018, 10/23/2018 BMI CHECK/ADVISE 02/20/2024 04/06/2014, 04/2014, 11/20/2013, Additional history exists INFLUENZA (Season Ended) 2024 015, 10/13/2014, 11/01/2011, Additional history exists PNEUMOCOCCAL VACCINE FOR HIG H RISK PATIENTS (#1) 2042 Care Teams Cellar Pumper Relationship Specialty Start Date End Date Gibson-Becca Callaway MD PCP - General Internal Medicine 03/23/21
--- OUTSIDE RECORDS SUMMARY | 2024-06-15 22:14 | XMS_ITS | Encounter Summary ---
Author Organization [facility] Address [address] [place] [address] Care Team Providers Care Sports Management Internship Name Role Phone Darya Hamilton MD Primary [...] Care Team Description 11/02/2014 Telephone Adult Medicine [address] [address] Darya Hamilton MD Faxed Order Social History [...] on filedocumented in this encounter Care Teams Sports Management Internship Relationship Specialty Start Date End Date Darya Hamilton MD PCP - General 06/30/10 03/15/15 [facility], Pcp PCP - General Internal Medicine 03/16/15 06/20/16 Darya Hamilton MD PCP - General Internal Medicine 06/21/16 11/12/16 Lewis Espino MD PCP - General Internal Medicine 11/13/16 Dipesh Kern MD PCP - General Internal Medicine 10/15/18 Hume-Becca Callaway MD PCP - General Internal Medicine 03/23/21 documented as of this encounter
--- OUTSIDE RECORDS SUMMARY | 2024-06-15 22:14 | XMS_ITS | Encounter Summary ---
Author Organization [facility] Address [address] [place] [address] Care Team Providers Care Newspaper Illustrator Name Role Phone Darya Hamilton MD Primary Care Provider Ronak Beasley, Pcp Primary Care Provider Unavailabl e Darya Hamilton MD Primary Care Provider Lewis Birmingham MD Primary Care Provider Un available Dipesh Kern MD Primary Care Provide r Unavailable Becca Hinkle MD Primary Care Provider Unavailable Encounter Details Date Type Department Care Team Description 05/08/2013 Training Mgr Report Medical Records [address] [place] [address] Social History Tobacco Use Types Packs/Day Years [...] on filedocumented in this encounter Care Teams Newspaper Illustrator Relationship Specialty Start Date End Date Darya [...]
--- OUTSIDE RECORDS SUMMARY | 2024-06-15 22:14 | XMS_ITS | Encounter Summary ---
Author Organization [facility] Address [address] [place] [address] Care Team Providers Care Specialty Sales Representative Name Role Phone Darya Hamilton MD Primary [...] Care Team Description 12/30/2014 Telephone Adult Medicine [address] [address] Darya Hamilton MD Faxed Order Social History [...] on filedocumented in this encounter Care Teams Specialty Sales Representative Relationship Specialty Start Date End Date Darya [...]
--- OUTSIDE RECORDS SUMMARY | 2024-06-15 22:14 | XMS_ITS | Encounter Summary ---
Author Organization [employer] Address [address] [place] [address] [address] [place] [address] Care Team Providers Care Technical Sales Manager Name Role Phone Maddie Kim MD Primary Care Provider [phone] Reason for Referral * Consultation (Urgent) - Closed Specialty Diagnoses / Procedures Referred By Sindi mejia Referred To Contact Cardiology Diagnoses Primary hypertension Tachycardia Other chest pain Maddie Kim MD [address] [place] [address] Phone: tel: fax: [facility] Referral ID Status Reason Start Date Expiration Date V isits Requested Visits Authorized [id number] Closed Specialty Services Required 05/06/2024 05/06/2025 1 1 Encounter Details Date Type Department Care Team (Late st Contact Info) Description 05/06/2024 Orders Only [facility] MED[facility] [address] [place], [place] [phone] Maddie Kim MD [address] [place], [place] [phone] Primary hypertension (Primary Dx); Tachycardia; Other chest [...] Info) Description 07/01/2024 11:30 AM EDT Telemedicine [facility] [address] [place] [address] Maddie Kim MD [address] [place] [address] Scheduled Referrals Name Type Priority Associated Diagnoses [...] documented as of this encounter Care Teams Technical Sales Manager Relationship Specialty Start Date End Date Maddie Kim MD [address] [place] [address] PCP - General Family Medicine 07/12/20 Willie Gage 01/17/22 documented as of this encounter
--- OUTSIDE RECORDS SUMMARY | 2024-06-15 22:14 | XMS_ITS | Encounter Summary ---
Author Organization [employer] Address [address] [place] [address] 7[address] [place] [address] Care Team Providers Care Card Doffer Name Role Phone Maddie Kim MD Primary Care Provider [phone] Encounter Details Date Type Department Care Team (Late Contact Info) Description 01/27/2022 Telephone [facility] MEDICINE [address] [place] [phone] Maddie Kim MD [address] [place] [phone] Social History Tobacco Use Types Packs/Day Years [...] 07/01/2024 11:30 AM EDT Telemedicine [facility] MEDICINE [address] [place] [phone] Maddie Kim MD [address] [place] [phone] documented as of this encounter Visit Diagnoses Not on filedocumented in this encounter Care Teams Card Doffer Relationship Specialty Start Date End Date Maddie Kim MD [address] [place] [phone] PCP - General Family Medicine 07/12/20 Willie Gage 01/17/22 documented as of this encounter
--- OUTSIDE RECORDS SUMMARY | 2024-06-15 22:14 | XMS_ITS | Encounter Summary ---
Author Organization [employer] Address [address] [facility] 7t [place] [address] Care Team Providers Care Pulp Making Plant Operator Name Role Phone Maddie Kim MD Primary Care Provider [phone] Encounter Details Date Type Department Care Team ([facility] st Contact Info) Description 03/19/2023 Orders Only [facility] MEDICINE [address] [place], [place] [phone] Maddie Kim MD [address] [place], [place] [phone] Herniated lumbar intervertebral disc (Primary Dx) Social [...] AM EDT Telemedicine [facility] [address] [place] [address] Maddie Kim MD [address] [place] [address] documented as of this encounter Visit Diagnoses Diagnosis Herniated lumbar intervertebral disc- Primary Displacement of lumbar intervertebral disc without myelopathy documented in this encounter Additional Health Concerns Assessment Noted Time PHQ-9 Depression Total Score: 0 05/30/19 23 3:26 PM EDT documented as of this encounter Care Teams Pulp Making Plant Operator Relationship Specialty Start Date End Date Maddie Kim MD [address] [place] [address] PCP - General Family Medicine 07/12/20 Willie Gage 01/17/22 documented as of this encounter
--- OUTSIDE RECORDS SUMMARY | 2024-06-15 22:14 | XMS_ITS | Encounter Summary ---
Author Organization [employer] Address [address] [facility] [address]t [place] [address] Care Team Providers Care Assistant Farm Operations Manager Name Role Phone Maddie Kim MD Primary Care Provider [phone] Reason for Visit * Reason Comments Med Refill Encounter Details Date Type Department Care Team ([facility] st Contact Info) Description 04/12/2023 Refill [facility] [address] [place] [phone] Isac Gonzalez MD [address] [place], [place] [phone] Chronic bilateral low back pain without sciatica [...] EDT Telemedicine [facility] MED[facility] [address] [place] [phone] Maddie Kim MD [address] [place] [address] documented as of this encounter Visit Diagnoses Diagnosis Chronic bilateral low back pain without sciatica documented in this encounter Additional Health Concerns Assessment Noted Time PHQ-9 Depression Total Score: 0 05/30/19 23 3:26 PM EDT documented as of this encounter Care Teams Assistant Farm Operations Manager Relationship Specialty Start Date End Date Maddie Kim MD [address] [place] [phone] PCP - General Family Medicine 07/12/20 Willie Gage 01/17/22 documented as of this encounter
--- OUTSIDE RECORDS SUMMARY | 2024-06-15 22:14 | XMS_ITS | Encounter Summary ---
Author Organization [employer] Address [address] [facility] 7t [place] [address] Care Team Providers Care Machine Tech Name Role Phone Maddie Kim MD Primary Care Provider [phone] Reason for Visit * Reason Onset Date Comments Durable Medical Equipment 03/16/2022 Encounter Details Date Type Department Care Team ([facility] st Contact Info) Description 03/16/2022 Telephone [facility] MED[facility] [address] [place], [place] [phone] Maddie Kim MD [address] [place], [place] [phone] Durable Medical Equipment Social History Tobacco Use [...] it can fax to her landlord at [phone]. She would like the script to be to the [facility], [address] [place] [address] If any concerns please contact pt at [phone] documented in this encounter Plan of Treatment Upcoming Encounters Date Type Department Care Team (Late st Contact Info) Description 07/01/2024 11:30 AM EDT Telemedicine [facility]INE [address] [place] [phone] Maddie Kim MD [address] [place] [phone] documented as of this encounter Visit Diagnoses Not on filedocumented in this encounter Care Teams Machine Tech Relationship Specialty Start Date End Date Maddie Kim MD [address] [place] [address] PCP - General Family Medicine 07/12/20 Willie Gage 01/17/22 documented as of this encounter
--- OUTSIDE RECORDS SUMMARY | 2024-06-15 22:14 | XMS_ITS | Encounter Summary ---
Author Organization [facility] Address [address] [place] [address] Care Team Providers Care Agile Test Lead Name Role Phone Lewis Espino MD Primary Care Provider Un available Dipesh Kern MD Primary Care Provide r Unavailable Becca Hinkle MD Primary Care Provider Unavailable Encounter Details Date Type Department Care Team Description 04/05/2017 Release of Information Medical Records [address] [place] [id number] Abstract, Provider Social History Tobacco Use Types [...] on filedocumented in this encounter Care Teams Agile Test Lead Relationship Specialty Start Date End Date Lewis Espino MD PCP - General Internal Medicine 11/13/16 Dipesh Kern MD PCP - General Internal Medicine 10/15/18 Becca Hinkle MD PCP - General Internal Medicine 03/23/21 documented as of this encounter
--- OUTSIDE RECORDS SUMMARY | 2024-06-15 22:14 | XMS_ITS | Encounter Summary ---
Author Organization [facility] Address [address] [place] [address] Care Team Providers Care Forging Die Sinker Name Role Phone Darya Hamilton MD Primary [...] Care Team Description 12/17/2012 Telephone Adult Medicine [address] [address] Darya Hamilton MD Note, Other (Medical Resources) [...] on filedocumented in this encounter Care Teams Forging Die Sinker Relationship Specialty Start Date End Date Darya [...]
--- OUTSIDE RECORDS SUMMARY | 2024-06-15 22:14 | XMS_ITS | Clinical Summary ---
Author Organization Unknown Care Team Providers Care Field Artillery Fire Control Man Name Role Phone MARLON AHUMADA, JEAN-PIERRE Unavailable Unavailable ENRIQUE WEINSTEINW, WINNIE Unavailable Unavailable KATINA RN, ANASTACIA Unavailable Unavailable SMILEY RN, JENNI Unavailable Unavailable JAVIER RN, GABBY Unavailable Unavaila ble Payers Payer Name Policy Type Policy Number Effective Date Expira tion Date [facility] [place] [id number] [place] [id number] MEDICARE - [facility] - [place] [id number] Problems Condition Name Condition Details Condition Category [...] 2020-02 00:00: 00 03-07 00:00 :00 No [id number] 10 mg 3 TIMES DAILY 10 mg 3 TIMES DAILY (route: oral) Med Classific ation: Locomotor System buprenorphi ne 4 mg-naloxone 1 mg sublingual film 2020-02 00:00: 00 04-05 00:00 :00 No [id number] Per instruc tions NEEDED Per instructio ns NEEDED (route: sublingual ) Med Classific ation: Chemical Dependenc y, Agents to Treat divalproex 250 mg tablet,kassandra yed release 2020-02 00:00: 00 04-05 23:59 :00 No [id number] 250 mg DAILY 250 mg DAILY (route: oral) Med Classific ation: Central Nervous System Agents divalproex ER 500 mg tablet,exte nded release 24 hr 2020-02 00:00: 00 04-05 00:00 :00 No [id number] 500 mg 2 TIMES DAILY 500 mg 2 TIMES DAILY (route: oral) Med Classific ation: Central Nervous System Agents ferrous sulfate 325 mg (65 mg iron) tablet 2020-02 00:00: 00 04-05 00:00 :00 No [id number] 1 tablet DAILY 1 tablet DAILY (route: oral) Med Classific ation: Electroly te Balance-N utritiona l Products Invega Sustenna 156 mg/mL intramuscul ar syringe 2020-02 00:00: 00 05-11 23:59 :00 No [id number] 156 mg MONTHLY 156 mg MONTHLY (route: intramuscu lar) Med Classific ation: Central Nervous System Agents levothyroxi ne 25 mcg tablet 2020-02 00:00: 00 03-05 23:59 :00 No [id number] 25 mcg DAILY 25 mcg DAILY (route: oral) Med Classific ation: Endocrine lisinopril 5 mg tablet 2020-02 00:00: 00 11-21 23:59 :00 No [id number] 5 mg DAILY 5 mg DAILY (route: oral) Med Classific ation: Cardiovas cular Therapy Agents nicotine (polacrilex ) 4 mg gum 2020-02 00:00: 00 09-12 23:59 :00 No [id number] 4 gum NEEDED 4 gum NEEDED (route: buccal) Med Classific ation: Chemical Dependenc y, Agents to Treat nicotine 21mg/24hr-1 4mg/24hr-7m g/24hr daily transderm patches,seq uentl 2020-02 00:00: 00 09-12 23:59 :00 No [id number] 21 patch NEEDED 21 patch NEEDED (route: transderma l) Med Classific ation: Chemical Dependenc y, Agents to Treat nystatin 500,000 unit tablet 2020-02 00:00: 00 04-05 00:00 :00 No [id number] In unit 4 TIMES DAILY [id number] In unit 4 TIMES DAILY (route: oral) Med Classific ation: Anti-Infe ctive Agents omeprazole 20 mg tablet,kassandra yed release 2020-02 00:00: 00 Yes [id number] 20 mg DAILY 20 mg DAILY (route: oral) Med Classific ation: Gastroint estinal Therapy Agents prazosin 5 mg capsule 2020-02 00:00: 00 02-14 23:59 :00 No [id number] 5 capsule BEDTIME 5 capsule BEDTIME (route: oral) Med Classific ation: Cardiovas cular Therapy Agents trazodone 50 mg tablet 2020-02 00:00: 00 01-17 23:59 :00 No [id number] 50 mg NEEDED 50 mg NEEDED (route: oral) Med Classific ation: Central Nervous System Agents albuterol sulfate HFA 90 mcg/actuati on aerosol inhaler 04-05 00:00: 00 Yes [id number] 2 puff NEEDED 2 puff NEEDED (route: inhalation ) Med Classific ation: Respirato ry Therapy Agents Aspercreme with Aloe 10 % topical 04-05 00:00: 00 09-12 23:59 :00 No [id number] Per instruc tions NEEDED Per instructio ns NEEDED (route: topical) Med Classific ation: Dermatolo gical cyclobenzap rine 5 mg tablet 04-05 00:00: 00 01-17 23:59 :00 No [id number] 5 mg NEEDED 5 mg NEEDED (route: oral) Med Classific ation: Locomotor System Depakote 500 mg tablet,kassandra yed release 15 00:00: 00 05-06 23:59 :00 No [id number] 1000 mg 2 TIMES DAILY 1000 mg 2 TIMES DAILY (route: oral) Med Classific ation: Central Nervous System Agents diphenhydra mine 25 mg capsule 15 00:00: 00 06-01 23:59 :00 No [id number] 50 mg NEEDED 50 mg NEEDED (route: oral) Med Classific ation: Respirato ry Therapy Agents hydroxyzine HCl 50 mg tablet 04-05 00:00: 00 06-01 23:59 :00 No [id number] 50 mg 3 TIMES DAILY 50 mg 3 TIMES DAILY (route: oral) Med Classific ation: Central Nervous System Agents naltrexone 50 mg tablet 04-05 00:00: 00 06-01 23:59 :00 No [id number] 50 mg DAILY 50 mg DAILY (route: oral) Med Classific ation: Antidotes and other Reversal Agents Narcan 4 mg/actuatio n nasal spray 04-05 00:00: 00 06-01 23:59 :00 No [id number] Per instruc tions NEEDED Per instructio ns NEEDED (route: nasal) Med Classific ation: Antidotes and other Reversal Agents pyridoxine (vitamin B6) 25 mg tablet 04-05 00:00: 00 06-01 23:59 :00 No [id number] 25 mg DAILY 25 mg DAILY (route: oral) Med Classific ation: Electroly te Balance-N utritiona l Products Invega Sustenna 234 mg/1.5 mL intramuscul ar syringe 3-24 00:00: 00 Yes [id number] Per instruc tions MONTHLY Per instructio ns MONTHLY (route: intramuscu lar) Med Classific ation: Central Nervous System Agents Invega Sustenna 234 mg/1.5 mL intramuscul ar syringe 8-14 00:00: 00 11-30 23:59 :00 No [id number] 234 mg MONTHLY 234 mg MONTHLY (route: intramuscu lar) Med Classific ation: Central Nervous System Agents Celebrex 200 mg capsule 2021-02 0-26 00:00: 00 03-20 23:59 :00 No [id number] 200 mg 2 TIMES DAILY 200 mg 2 TIMES DAILY (route: oral) Alternate Route: NONE. Med Classific ation: Analgesic , Anti-infl ammatory or Antipyret ic Celebrex 200 mg capsule 1-30 00:00: 00 01-10 23:59 :00 No [id number] 200 mg DAILY 200 mg DAILY (route: oral) Alternate Route: NONE. Med Classific ation: Analgesic , Anti-infl ammatory or Antipyret ic docusate sodium 100 mg capsule - 00:00: 00 01-29 23:59 :00 No [id number] 1 capsule 2 TIMES DAILY 1 capsule 2 TIMES DAILY (route: oral) Alternate Route: NONE. Med Classific ation: Gastroint estinal Therapy Agents Eliquis 2.5 mg tablet 03-20 00:00: 00 09-12 23:59 :00 No [id number] 1 tablet 2 TIMES DAILY 1 tablet 2 TIMES DAILY (route: oral) Med Classific ation: Hematolog ical Agents oxycodone 5 mg tablet -30 00:00: 00 04-18 23:59 :00 No [id number] Per instruc tions DIRECTED Per instructio ns DIRECTED (route: oral) Alternate Route: NONE. Med Classific ation: Analgesic , Anti-infl ammatory or Antipyret ic tramadol 50 mg tablet -30 00:00: 00 04-18 23:59 :00 No [id number] Per instruc tions DIRECTED Per instructio ns DIRECTED (route: oral) Med Classific ation: Analgesic , Anti-infl ammatory or Antipyret ic gabapentin 300 mg capsule 3-29 00:00: 00 01-10 23:59 :00 No [id number] 1 capsule 3 TIMES DAILY 1 capsule 3 TIMES DAILY (route: oral) Med Classific ation: Central Nervous System Agents cyclobenzap rine 5 mg tablet 7-27 00:00: 00 01-10 23:59 :00 No [id number] 1 tablet 3 TIMES DAILY 1 tablet 3 TIMES DAILY (route: oral) Med Classific ation: Locomotor System baclofen 10 mg tablet 2022-02 1-24 00:00: 00 03-30 23:59 :00 No [id number] 1 tablet DIRECTED 1 tablet DIRECTED (route: oral) Med Classific ation: Locomotor System docusate sodium 100 mg capsule 2022-02- 00:00: 00 Yes [id number] 1 capsule NEEDED 1 capsule NEEDED (route: oral) Med Classific ation: Gastroint estinal Therapy Agents acetaminoph en 300 mg-codeine 30 mg tablet 03-30 00:00: 00 05-15 23:59 :00 No [id number] 1 tablet 3 TIMES DAILY 1 tablet 3 TIMES DAILY (route: oral) Med Classific ation: Analgesic , Anti-infl ammatory or Antipyret ic Paxlovid 300 mg (150 mg x 2)-100 mg tablets in a dose pack 03-30 00:00: 00 04-03 23:59 :00 No [id number] 3 tablet 2 TIMES DAILY 3 tablet 2 TIMES DAILY (route: oral) Med Classific ation: Anti-Infe ctive Agents tizanidine 4 mg tablet 03-30 00:00: 00 01-03 23:59 :00 No [id number] 1 tablet 3 TIMES DAILY 1 tablet 3 TIMES DAILY (route: oral) Med Classific ation: Locomotor System Depakote 500 mg tablet,kassandra yed release 05-11 00:00: 00 03-31 23:59 :00 No [id number] 1000 mg 2 TIMES DAILY 1000 mg 2 TIMES DAILY (route: oral) Med Classific ation: Central Nervous System Agents multivitami n tablet 06-03 00:00: 00 04-21 23:59 :00 No [id number] 1 tablet DIRECTED 1 tablet DIRECTED (route: oral) Med Classific ation: Electroly te Balance-N utritiona l Products gabapentin 300 mg capsule - 00:00: 00 04-24 23:59 :00 No [id number] 2 capsule 3 TIMES DAILY 2 capsule 3 TIMES DAILY (route: oral) Med Classific ation: Central Nervous System Agents paliperidon e ER 1.5 mg tablet,exte nded release 24 hr 07-10 00:00: 00 11-22 23:59 :00 No [id number] 1 tablet DAILY 1 tablet DAILY (route: [...] ation: Locomotor System Eliquis 2.5 mg tablet 410 00:00: 00 Yes 1 tablet 2 TIMES DAILY 1 tablet 2 TIMES DAILY (route: oral) Med Classific ation: Hematolog ical Agents oxycodone 10 mg tablet 4-11 00:00: 00 Yes 0.5-1 tablet EVERY 4 HOURS 0.5-1 tablet EVERY 4 HOURS (route: oral) Med Classific ation: Analgesic , Anti-infl ammatory or Antipyret ic tramadol 50 mg tablet 10 00:00: 00 Yes 1-2 tablet EVERY 6 HOURS 1-2 tablet EVERY 6 HOURS (route: oral) Med Classific ation: Analgesic , Anti-infl ammatory or Antipyret ic Zepbound 2.5 mg/0.5 mL subcutaneou s pen injector 06-05 00:00: 00 Yes 2.5 mg WEEKLY 2.5 mg WEEKLY (route: subcutaneo us) Med Classific ation: Weight Loss/Gain Agents baclofen 10 mg tablet 06-05 00:00: 00 Yes 1 tablet 3 TIMES DAILY 1 tablet 3 TIMES DAILY (route: oral) Med Classific ation: Locomotor System QUETIAPINE ORAL 07-23 00:00: 00 08-22 00:00 :00 No 200 mgONE TABLET ONCE DAILY IN THE EVENING WITHOUT MAGEN D 200 mgONE TABLET ONCE DAILY IN THE EVENING WITHOUT MAGEN D (route: ) Alternate Route: (200MG) BY MOUTH OR A LIGHT MEAL UNDER . Med Classific ation: CENTRAL NERVOUS SYSTEM AGENTS QUETIAPINE ORAL 24 00:00: 00 09-10 00:00 :00 No 400 [...] CENTRAL NERVOUS SYSTEM AGENTS CARISOPRODO L ORAL -08 00:00: 00 08-01 00:00 :00 No 350 [...] CLINDAMYCIN HCL ORAL 0 4-11 00:00: 00 18 00:00 :00 No 300 mg 3 (THREE) [...] ation: ELECTROLY TE BALANCE-N UTRITIONA L PRODUCTS HYDROCODONE -ACETAMINOP HEN ORAL 10-07 00:00: 10-12 [...] ation: GASTROINT ESTINAL THERAPY AGENTS OXYCODONE ORAL 2018-0208 00:00: 00 11-30 00:00 :00 No 5 [...] CENTRAL NERVOUS SYSTEM AGENTS CHLORPROMAZ INE ORAL 2018- 6-04 00:00: 00 08-22 00:00 :00 No [...] L PRODUCTS FERROUS SULFATE ORAL 07-23 00:00: 00 08-22 00:00 :00 No 325 mg (65 mg iron)ON E TABLET 3 TIMES DAILY 325 mg (65 mg iron)ONE TABLET 3 TIMES DAILY (route: ) Alternate Route: (325MG) BY MOUTH . Med Classific ation: ELECTROLY TE BALANCE-N UTRITIONA L PRODUCTS TRAMADOL ORAL 2018-02 00:00: 00 11-28 00:00 :00 No 50 mg 50 mg (route: ) Med Classific ation: ANALGESIC , ANTI-INFL AMMATORY OR ANTIPYRET IC Vital Signs Vital Name Observation Time Observation [...] AWARENESS FOR SAFETY AND WILL NOTIFY CLINICAL WELL FLOW OPERATOR AND PHYSICIAN/PROVIDER WITH ANY CHANGE IN CONDITION. [code = SKILLED NURSE WILL MAINTAIN SITUATIONAL AWARENESS FOR SAFETY AND WILL NOTIFY CLINICAL WELL FLOW OPERATOR AND PHYSICIAN/PROVIDER WITH ANY CHANGE IN [...] CARE WILL BE ESTABLISHED THAT MEETS PATIENT'S USP NEEDS AND INCLUDES PATIENT GOAL FOR HOME [...] IMPROVING AND PATIENT AMBULATING WITH HER CANE. MANAGER FOOD SAFETY PHYSICAL THERAPY TODAY. PATIENT'S MOOD IS CURRENTLY STABLE. PT DENIES SI/HI. PT CONTRACTS FOR SAFETY. MEDICATIONS LOCKBOX SECURE.</paragraph> <paragraph>[Visit Date: 2024 by GABBY HERRERA RN]:</paragraph><paragraph>06/11/24 PATIENT X3. [facility] FOR FOLLOW UP. DRESSING TO LEFT [...] SUNDAY AFTERNOON. PATIENT HAS PHYSICAL THERAPY [facility] THIS TODAY. PT REPORTS COMPLIANCE WITH TAKING PREFILLED MEDS, APPEARS COMPLIANT PILL ORGANIZER EMPTY APPROPRIATELY. PT. DENIES SI/HI. CRISIS PLAN IS IN PLACE. MEDICATION LOCK SECURE.</paragraph> Encounters Start Date/Time End Date/Time Encounter Type Admission Type Attending [facility] Care Department Encounter ID Discharge Date Discharge Status Discharge Condition Discharge Reason Percent Goals Met 2022-01-17 00:00:00 2024-07-04 00:00:00 Outpatient RECERTIFIC ATION GABBY HERRERA [facility] [id number] 46.15
--- OUTSIDE RECORDS SUMMARY | 2024-06-15 22:14 | XMS_ITS | Encounter Summary ---
Author Organization [facility] Address [address] [place] [address] Care Team Providers Care German Instructor Name Role Phone Darya Hamilton MD Primary Care Provider Ronak Beasley, Pcp Primary Care Provider Unavailabl e Darya Hamilton MD Primary Care Provider Lewis Birmingham MD Primary Care Provider Un available Dipesh Kern MD Primary Care Provide r Unavailable Becca Hinkle MD Primary Care Provider Unavailable Encounter Details Date Type Department Care Team Description 04/15/2013 Controlled Substance Contract with [facility] Medical Records [address] [place] [phone] Abstract, Provider Social History Tobacco Use Types [...] on filedocumented in this encounter Care Teams German Instructor Relationship Specialty Start Date End Date Darya Hamilton MD PCP - General 06/30/10 03/15/15 [facility], Pcp PCP - General Internal Medicine 03/16/15 06/20/16 Darya Hamilton MD PCP - General Internal Medicine 06/21/16 11/12/16 Lewis Espino MD PCP - General Internal Medicine 11/13/16 Dipesh Kern MD PCP - General Internal Medicine 10/15/18 Becca Hinkle MD PCP - General Internal Medicine 03/23/21 documented as of this encounter
--- OUTSIDE RECORDS SUMMARY | 2024-06-15 22:14 | XMS_ITS | Encounter Summary ---
Author Organization [facility] Address [address] [place] [address] Care Team Providers Care Power Lineman Name Role Phone Darya Hamilton MD Primary Care Provider Ronak Beasley, Pcp Primary Care Provider Unavailabl e Darya Hamilton MD Primary Care Provider Lewis Birmingham MD Primary Care Provider Un available Dipesh Kern MD Primary Care Provide r Unavailable Becca Hinkle MD Primary Care Provider Unavailable Encounter Details Date Type Department Care Team Description 12/31/2012 Business Doc Medical Records [address] [place] [phone] Abstract, Provider Social History Tobacco Use Types [...] on filedocumented in this encounter Care Teams Power Lineman Relationship Specialty Start Date End Date Darya [...]
--- OUTSIDE RECORDS SUMMARY | 2024-06-15 22:14 | XMS_ITS | Encounter Summary ---
Author Organization [employer] Address [address] [place] [address] 7t [place] [address] Care Team Providers Care Special Education Resource Teacher Name Role Phone Maddie Kim MD Primary Care Provider [phone] Reason for Visit * Reason Onset Date Comments c/b request 11/10/2022 Encounter Details Date Type Department Care Team ([facility] st Contact Info) Description 11/10/2022 Telephone [facility] [address] [place] [address] [phone] Maddie Kim MD [address] [place], [place] [phone] c/b request Social History Tobacco Use Types [...] to medication reconciliation. Please contact [employer] at [phone] documented in this encounter Plan of Treatment Upcoming Encounters Date Type Department Care Team (Late st Contact Info) Description 07/01/2024 11:30 AM EDT Telemedicine [facility] [address] [place] [address] Maddie Kim MD [address] [place] [phone] documented as of this encounter Visit Diagnoses Diagnosis Gastroesophageal reflux disease without esophagitis Esophageal reflux documented in this encounter Additional Health Concerns Assessment Noted Time PHQ-9 Depression Total Score: 0 05/30/19 23 3:26 PM EDT documented as of this encounter Care Teams Special Education Resource Teacher Relationship Specialty Start Date End Date Maddie Kim MD [address] [place] [address] [phone] PCP - General Family Medicine 07/12/20 Willie Gage 01/17/22 documented as of this encounter
--- OUTSIDE RECORDS SUMMARY | 2024-06-15 22:14 | XMS_ITS | Encounter Summary ---
Author Organization [facility] Address [address] [place] [address] Care Team Providers Care Meter/Relay Craftsman Name Role Phone Dipesh Kern MD Primary Care Provide r Unavailable Becca Hinkle MD Primary Care Provider Unavailable Encounter Details Date Type Department Care Team Description 08/24/2020 [facility] Medical Records [address] [place] [phone] [place] [address] Social History Tobacco Use Types Packs/Day Years [...] on filedocumented in this encounter Care Teams Meter/Relay Craftsman Relationship Specialty Start Date End Date Dipesh Kern MD PCP - General Internal Medicine 10/15/18 Becca Hinkle MD PCP - General Internal Medicine 03/23/21 documented as of this encounter
--- OUTSIDE RECORDS SUMMARY | 2024-06-15 22:14 | XMS_ITS | Encounter Summary ---
Author Organization [employer] Address [address] [place] [address] 7t [place] [address] Care Team Providers Care Nurse Aide Evaluator Name Role Phone Maddie Kim MD Primary Care Provider [phone] Reason for Referral * Consultation (Routine) - Closed Specialty Diagnoses / Procedures Referred By Sindi mejia Referred To Contact Nutrition Diagnoses Class 2 severe obesity with serious comorbidity and body mass index (BMI) of 39.0 to 39.9 in adult, unspecified obesity type (CMS/HCC) Maddie Kim MD [address] [place] [address] Phone: tel: fax: Referral ID Status Reason Start Date Expiration Date V isits Requested Visits Authorized [id number] Closed Consult and Treat 04/06/2023 04/05/2024 1 1 Encounter Details Date Type Department Care Team (Late st Contact Info) Description 04/06/[address] [facility] MEDICINE [address] [place] [address] [phone] Maddie Kim MD [address] [place] [address] Class 2 severe obesity with serious comorbidity [...] EDT Telemedicine [facility] [address] [place] [address] Maddie Kim MD [address] [place] [address] Scheduled Referrals Name Type Priority Associated Diagnoses [...] EDT Narrative 05/26/2023 3:06 PM EDT ? [facility] ? [address] ?[place], [place] [address] ? Mammography Report ? Signed ? Patient: [place],Atiya ?MR#: [id number] ? : 1975 ?Acct:[id number] ? Age/Sex: 47 / F ?ADM Date: 05/04/23 ? Loc: HO.MAMMO ? Attending Dr: Maddie Kim MD ? Ordering Physician: Maddie Kim ?Results: 1Negative ? Date of Service: 05/04/23 ?Follow Up: 1 Year From Orig ?? inal Mammogram ? Procedure(s): MM tomosynthesis screening BI ?? Accession Number(s): [id number] ? cc: Maddie Kim ? EXAMINATION: ?? [...] 1503 ? DD/ 1602 ? TD/TT: ? Ruching Machine Operator: ? Procedure Note John Paul, Zoya - 05/26/2023 [facility] [address] [place] [address] Mammography Report Signed Patient: Zain Esparza#: [id number] : 1975Acct:[id number] Age/Sex: 47 / FADM Date: 05/04/23 Loc: MICHAEL Attending Dr: Maddie Kim MD Ordering Physician: Jaja Kimults: 1Negative Date of Service: 05/04/23Follow Up: 1 Year From Orig inal Mammogram Procedure(s): tomosynthesis screening BI Accession Number(s): [id number] cc: Maddie Kim EXAMINATION: MM SCREENING DIGITAL [...] in OV> 05/26/23 1503 DD/ 1602 TD/TT: Ruching Machine Operator: Maddie Kim MD IMG BI PROCEDURES Final [...] as of this encounter Care Teams Nurse Aide Evaluator Relationship Specialty Start Date End Date Maddie Kim MD [address] [place] [phone] PCP - General Family Medicine 07/12/20 Willie Gage 01/17/22 documented as of this encounter
--- OUTSIDE RECORDS SUMMARY | 2024-06-15 22:14 | XMS_ITS | Encounter Summary ---
Author Organization [employer] Address [address] [facility] 7t [place] [address] Care Team Providers Care Operating Table Assembler Name Role Phone Maddie Kim MD Primary Care Provider [phone] Reason for Visit * Reason Comments Med Refill Encounter Details Date Type Department Care Team ([facility] st Contact Info) Description 03/18/2023 Refill [facility] [address] [place] [address] [phone] Maddie Kim MD [address] [address] [phone] Social History Tobacco Use Types Packs/Day Years [...] AM EDT Telemedicine [facility] [address] [place] [phone] Maddie Kim MD [address] [place] [address] documented as of this encounter Visit Diagnoses Not on filedocumented in this encounter Additional Health Concerns Assessment Noted Time PHQ-9 Depression Total Score: 0 05/30/19 23 3:26 PM EDT documented as of this encounter Care Teams Operating Table Assembler Relationship Specialty Start Date End Date Maddie Kim MD [address] [place] [phone] PCP - General Family Medicine 07/12/20 Willie Gage 01/17/22 documented as of this encounter
--- OUTSIDE RECORDS SUMMARY | 2024-06-15 22:14 | XMS_ITS | Encounter Summary ---
Author Organization [employer] Address [address] [place] [address] 7t [place] [address] Care Team Providers Care Clipper And Turner Name Role Phone Maddie Kim MD Primary Care Provider [phone] Encounter Details Date Type Department Care Team ([facility] Contact Info) Description 03/30/2022 Abstract [facility] [address] [place] [address] [phone] Maddie Kim MD [address] [place] [address] [phone] Social History Tobacco Use Types Packs/Day Years [...] 07/01/2024 11:30 AM EDT Telemedicine [facility] [address] [place] [address] [phone] Maddie Kim MD [address] [place] [address] [phone] documented as of this encounter Visit Diagnoses Not on filedocumented in this encounter Care Teams Clipper And Turner Relationship Specialty Start Date End Date Maddie Kim MD [address] [place] [address] PCP - General Family Medicine 07/12/20 Willie Gage 01/17/22 documented as of this encounter
--- OUTSIDE RECORDS SUMMARY | 2024-06-15 22:14 | XMS_ITS | Encounter Summary ---
Author Organization [facility] Address [address] [place] [address] Care Team Providers Care Yarn Skeins Examiner Name Role Phone Dipesh Kern MD Primary Care Provide r Unavailable Becca Hinkle MD Primary Care Provider Unavailable Encounter Details Date Type Department Care Team Description 10/25/2018 Release of Information Medical Records [address] [place] [phone] Abstract, Provider Social History Tobacco Use Types [...] on filedocumented in this encounter Care Teams Yarn Skeins Examiner Relationship Specialty Start Date End Date Dipesh Kern MD PCP - General Internal Medicine 10/15/18 Becca Hinkle MD PCP - General Internal Medicine 03/23/21 documented as of this encounter
--- OUTSIDE RECORDS SUMMARY | 2024-06-15 22:14 | XMS_ITS | Encounter Summary ---
Author Organization [facility] Address [address] [place] [address] Care Team Providers Care Laborer Brush Clearing Name Role Phone Darya Hamilton MD Primary [...] Details Date Type Department Care Team Description 03/21/2010 Night Triage Doc Medical Records [address] [place] [address] Abstract, Provider Social History Tobacco Use Types [...] on filedocumented in this encounter Care Teams Laborer Brush Clearing Relationship Specialty Start Date End Date Darya Hamilton MD PCP - General 06/30/10 03/15/15 Becca Hinkle MD PCP - General 04/22/0806/29 [facility], Pcp PCP - General Internal Medicine 03/16/15 06/20/16 Darya Hamilton MD PCP - General Internal Medicine 06/21/16 11/12/16 Lewis Espnio MD PCP - General Internal Medicine 11/13/16 Dipesh Kern MD PCP - General Internal Medicine 10/15/18 [place]-Becca Callaway MD PCP - General Internal Medicine 03/23/21 documented as of this encounter
--- OUTSIDE RECORDS SUMMARY | 2024-06-15 22:14 | XMS_ITS | Encounter Summary ---
Author Organization [employer] Address [address] [place] [address] 7t [place] [address] Care Team Providers Care Male Impersonator Name Role Phone Maddie Kim MD Primary Care Provider [phone] Encounter Details Date Type Department Care Team ([facility] Contact Info) Description 07/05/2022 Orders Only [facility] MED[facility]INE [address] [place] [address] [phone] Maddie Kim MD [address] [place] [address] [phone] Social History Tobacco Use Types Packs/Day Years [...] [facility] Description 07/01/2024 11:30 AM EDT Telemedicine [facility] [address] [place] [address] [phone] Maddie Kim MD [address] [place] [address] [phone] documented as of this encounter Visit Diagnoses Not on filedocumented in this encounter Additional Health Concerns Assessment Noted Time PHQ-9 Depression Total Score: 0 05/30/19 23 3:26 PM EDT documented as of this encounter Care Teams Male Impersonator Relationship Specialty Start Date End Date Maddie Kim MD [address] [place] [address] PCP - General Family Medicine 07/12/20 Willie Gage 01/17/22 documented as of this encounter
--- OUTSIDE RECORDS SUMMARY | 2024-06-15 22:14 | XMS_ITS | Encounter Summary ---
Author Organization [email or web address] Address [address] [place] [address] 7t [place] [address] Care Team Providers Care Training And Development Officer Name Role Phone Maddie Kim MD Primary Care Provider [phone] Encounter Details Date Type Department Care Team (Late Contact Info) Description 11/14/2022 Orders Only [facility] MEDICINE [address] [place] [address] [phone] Maddie Kim MD [address] [place] [address] [phone] Social History Tobacco Use Types Packs/Day Years [...] Description 07/01/2024 11:30 AM EDT Telemedicine [facility] MED[facility]INE [address] [place] [address] Maddie Kim MD [address] [place] [address] [phone] documented as of this encounter Visit Diagnoses Not on filedocumented in this encounter Additional Health Concerns Assessment Noted Time PHQ-9 Depression Total Score: 0 05/30/19 23 3:26 PM EDT documented as of this encounter Care Teams Training And Development Officer Relationship Specialty Start Date End Date Maddie Kim MD [address] [place] [address] PCP - General Family Medicine 07/12/20 Willie Caring 01/17/22 documented as of this encounter
--- OUTSIDE RECORDS SUMMARY | 2024-06-15 22:14 | XMS_ITS | Encounter Summary ---
Author Organization [email or web address] Address [address] [place] [address] 7t [place] [address] Care Team Providers Care C Developer Name Role Phone Maddie Kim MD Primary Care Provider [phone] Encounter Details Date Type Department Care Team ([facility] Contact Info) Description 04/11/2022 Abstract [facility] [address] [place] [address] [phone] Maddie Kim MD [address] [place] [address] [phone] Social History Tobacco Use Types Packs/Day Years [...] 07/01/2024 11:30 AM EDT Telemedicine [facility] [address] [place] [address] [phone] Maddie Kim MD [address] [place] [address] [phone] documented as of this encounter Visit Diagnoses Not on filedocumented in this encounter Care Teams C Developer Relationship Specialty Start Date End Date Maddie Kim MD [address] [place] [address] PCP - General Family Medicine 07/12/20 Willie Gage 01/17/22 documented as of this encounter
[2024-06-15 22:15] VITALS: BP 104/70; PULSE 78; RESP 18; TEMP 36.4; O2SAT 100
--- OUTSIDE RECORDS SUMMARY | 2024-06-15 22:15 | XMS_ITS | Encounter Summary ---
Author Organization [employer] Address [address] [facility] 7t [place] [address] Care Team Providers Care Ground Water Technician Name Role Phone Maddie Kim MD Primary Care Provider [phone] Encounter Details Date Type Department Care Team ([facility] st Contact Info) Description 04/14/2024 Orders Only [facility]INE [address] [place], [place] [phone] Maddie Kim MD [address] [place], [place] [phone] Social History Tobacco Use Types Packs/Day Years [...] EDT Telemedicine [facility] [address] [place], [place] [phone] Maddie Kim MD [address] [place], [place] [phone] documented as of this encounter Procedures Procedure [...] Immunofixation, Serum (04/14/2024 12:47 PM EST) Pathologist [facility] IMMUNOGLOBULIN G 1545 600 - 1640 mg/dL [facility] IMMUNOGLOBULIN A 197 47 - 310 mg/dL [facility] Immunoglobulin M 46(A) 50 - 300 mg/dL [facility] Comment:THIS TEST WAS PERFOR MED AT:[facility] [place] [phone] PARKINSON MD Immunofixation Result SEE NOTE [facility] Comment:Normal pattern. No m onoclonal proteins detected. 04/14/2024 12:4 7 PM EST 04/14/2024 12:47 PM EST [place] External Data Provider LAB BLOOD ORDERAB LES Final Result Performing Organization Address [facility] de Phone Number [facility] [address] [place] [phone] * Cortisol Random (04/14/2024 12:47 PM EST) [facility] Cortisol Random 5.7 ug/dL [facility] Comment:Reference Range*: Be fore 10 am 6.2-19.4 ug/dL After 5 pm 2.3-11.9 ug/dL*Please interpret above results accordingly.This test was performed using the [employer] chemiluminescentmethod. Values obtained from different assay methods cannotbe used interchangeably.Patients receiving fludrocortisone, prednisolone orprednisone may show artificially elevated cortisol valuesdue to cross-reactivity. 04/14/2024 12:4 7 PM EST 04/14/2024 12:47 PM EST Generic External Data Provider LAB BLOOD ORDERAB LES Final Result Performing Organization Address [facility] Co de Phone Number [facility] [address] [place] [address] [phone] * Ferritin (04/14/2024 12:47 PM EST) Pathologist [facility] Ferritin 61 10 - 250 ng/mL [facility] 04/14/2024 12:4 7 PM EST 04/14/2024 12:47 PM EST us Gil Brewer MD LAB BLOOD ORDERABLES Final Resul t Performing Organization Address [facility] Co de Phone Number [facility] [address] [place] [phone] * Iron And Total Iron Binding Capacity (04/14/2024 12:47 PM EST) Iron 77 30 - 160 mcg/dL [facility] Total Iron Binding Capacity 339 228 - 428 mcg/dL [facility] Percent Iron Saturation 23 15 - 50 % [facility] Unsaturated Iron Binding 262 ug/dL [facility] 04/14/2024 12:4 7 PM EST 04/14/2024 12:47 PM EST us Gil Brewer MD LAB BLOOD ORDERABLES Final Resul t Performing Organization Address [facility] Co de Phone Number [facility] [address] [place] [phone] * (ABNORMAL) Basic Metabolic Panel (04/14/2024 12:47 PM EST) Sodium 139 135 - 145 mmol/L [facility] Potassium 4.3 3.3 - 5.1 mmol/L [facility] Chloride 104 96 - 108 mmol/L [facility] Carbon Dioxide 27 22 - 29 mmol/L [facility] Anion Gap 12 12 - 20 [facility] Urea Nitrogen (BUN) 7(L) 9 - 16 mg/dL [facility] Creatinine, Serum 0.69 0.5 - 1.4 mg/dL [facility] Estimated Glomerular Filt Rate >60 [facility] Comment:Chronic Kidney Disea se: Estimated GFR < 60 mL/min/1.58n2Rbytok Kidney Disease: Estimated GFR < 15 mL/min/1.73m2 Glucose 84 60 - 115 mg/dL [facility] Calcium 9.5 8.4 - 10.2 mg/dL [facility] 04/14/2024 12:4 7 PM EST 04/14/2024 12:47 PM EST us Gil Name MD LAB BLOOD ORDERABLES Final Resul t [facility] [address] [place], [place] [phone] * (ABNORMAL) CBC auto differential (04/14/2024 12:47 PM EST) White Blood Count 6.5 4.8 - 10.8 X10*3/uL [facility] Red Blood Count 3.74(L) 4.20 - 5.50 X10*6/uL [facility] Hemoglobin 9.4(L) 12.0 - 16.0 g/dl [facility] Hematocrit 29.6(L) 37.0 - 47.0 % [facility] Mean Corpuscular Volume 79.1(L) 80.0 - 98.0 fL [facility] Mean Corpuscular Hemoglobin 25.1(L) 27.0 - 33.0 pg [facility] Mean Corpuscular HGB Conc 31.8 31.0 - 35.0 g/dl [facility] Red Cell Distribution Width 16.1(H) 11.0 - 16.0 % [facility] Platelet Count 530(H) 160 - 400 X10*3/uL [facility] Mean Platelet Volume 9.6 9.4 - 12.3 fL [facility] Neutrophils Percent Auto 56.2 45 - 73 % [facility] Imm Gran Pct Auto 0.6(H) 0.0 - 0.4 % [facility] Lymphocytes Percent Auto 32.5 20 - 40 % [facility] Monocytes Percent Auto 8.8 2 - 11 % [facility] Eosinophils Percent Auto 1.4 0 - 4 % [facility] Basophils Percent Auto 0.5 0 - 2 % [facility] NRBC Pct Auto 0.0 0.0 - 0.2 /100WBC [facility] Neutrophils Absolute Auto 3.7 2.0 - 8.3 x10*3/uL [facility] Imm Gran Abs Auto 0.04(H) 0.00 - 0.03 X10*3/uL [facility] Lymphocytes Absolute Auto 2.1 1.2 - 4.9 X10*3/uL [facility] Monocytes Absolute Auto 0.6 0.1 - 1.2 X10*3/uL [facility] Eosinophils Absolute Auto 0.1 0.0 - 0.4 X10*3/uL [facility] Basophils Absolute Auto 0.0 0.0 - 0.2 X10*3/uL [facility] NRBC Abs Auto 0.000 0.0 - 0.012 X10*3/uL [facility] 04/14/2024 12:4 7 PM EST 04/14/2024 12:47 PM EST us Gil Brewer MD LAB BLOOD ORDERABLES Final Resul t Performing Organization Address City/[facility]/ZIP Co de Phone Number [facility] [address] [place] [address] [phone] * (ABNORMAL) Osmolality, Urine (04/14/2024 12:45 PM EST) OSMOLALITY URINE 212(L) 373 - 1,093 mosm/kg [facility] 04/14/2024 12:4 5 PM EST 04/14/2024 1:55 PM EST us Generic External Data Provider LAB URINE ORDERAB LES Final Result Performing Organization Address [facility] Co de Phone Number [facility] [address] [place] [phone] * Sodium Without creatinine, Random Urine (04/14/2024 12:45 PM EST) Sodium Urine Random 47.0 mmol/L [facility] 04/14/2024 12:4 5 PM EST 04/14/2024 1:55 PM EST us Generic External Data Provider LAB BLOOD ORDERAB LES Final Result [facility] [address] [place] [address] [phone] documented in this encounter Visit Diagnoses Not on filedocumented in this encounter Additional Health Concerns Assessment Noted Time PHQ-9 Depression Total Score: 3 06/15/19 24 11:48 AM EDT documented as of this encounter Care Teams Ground Water Technician Relationship Specialty Start Date End Date Maddie Kim MD [address] [place] [address] PCP - General Family Medicine 07/12/20 Willie Gage 01/17/22 documented as of this encounter
--- OUTSIDE RECORDS SUMMARY | 2024-06-15 22:15 | XMS_ITS | Encounter Summary ---
Author Organization [facility] Address [address] [place] [address] Care Team Providers Care Wood Gouger Name Role Phone Darya Hamilton MD Primary Care Provider Ronak Beasley, Pcp Primary Care Provider Unavailabl e Darya Hamilton MD Primary Care Provider Lewis Birmingham MD Primary Care Provider Un available Dipesh Kern MD Primary Care Provide r Unavailable Becca Hinkle MD Primary Care Provider Unavailable Encounter Details Date Type Department Care Team Description 06/05/2014 Release of Information Medical Records [address] [place] [id number] Abstract, Provider Social History Tobacco Use Types [...] on filedocumented in this encounter Care Teams Wood Gouger Relationship Specialty Start Date End Date Darya Hamilton MD PCP - General 06/30/10 03/15/15 [facility], Pcp PCP - General Internal Medicine 03/16/15 06/20/16 Darya Hamilton MD PCP - General Internal Medicine 06/21/16 11/12/16 Lewis Espino MD PCP - General Internal Medicine 11/13/16 Dipesh Kern MD PCP - General Internal Medicine 10/15/18 Becca Hinkle MD PCP - General Internal Medicine 03/23/21 documented as of this encounter
--- OUTSIDE RECORDS SUMMARY | 2024-06-15 22:15 | XMS_ITS | Data Portability ---
Author Organization [facility], [facility] Address [address] [place] [address] Care Team Providers Care Medical Record Administrator Name Role Phone JEAN-PIERRE KIM Primary Care Provider Assessment Encounter Date Assessment Date Assessment LastModified by Organization Details LastModified Time 04/30/2024 04/30/2024 Assessment: Ragini ent presents with symptoms that are consistent with knee OA. Demonstrates good understanding of home program, post-operative mechanics for gait and stairs, and expectations following surgery. Plan: Discharge patient to knee OA safe [facility]. Follow up with patient post-operatively. Not available 04/30/2024 17:33:15 05/16/2024 05/16/2024 PRIMARY DIAGNOSI S: Osteoarthritis of the left knee. REASON FOR ADMISSION: The patient is being admitted for a left total knee arthroplasty by Dr. Sage Walker on 05/27/2024. HISTORY OF PRESENT ILLNESS: Ms. Dotson is a pleasant 48-year-old female who presents today for surgical history and physical prior to undergoing a left total knee arthroplasty by Dr. Sage Walker on 05/27/2024. She has a known longstanding history of left knee osteoarthritis and has undergone a lengthy course of conservative management with generalized failure of nonsurgical options. Her pain is severe and worsens with activity. It has gotten to the point where it is significantly interfering with her ability to perform activities of daily living as well as daily social tasks. She is now interested in pursuing a left total knee arthroplasty with Dr. Walker. She is status post a right total knee arthroplasty in February of 2022. She states she tolerated that procedure well. She was discharged on the same day of surgery. She was discharged with tramadol and oxycodone and tolerated it well. PAST MEDICAL HISTORY: 1. Osteoarthritis of the left knee. 2. Obesity with a BMI of 34.9. 3. History of alcohol abuse. 4. Chronic bipolar. 5. History of gastric perforation from ulcers. 6. Urinary incontinence. 7. Nicotine dependence for which the patient smokes approximately a pack a day. 8. Hypothyroidism. 9. Anemia. 10. History of LAUREN. After weight loss, no longer uses CPAP. 11. History of overdose in the past. 12. History of palpitations. She follows with Dr. Conde 13. History of hyponatremia requiring hospitalization. ? related to antihypertensives. Resolved. PAST SURGICAL HISTORY: 1. Gastric bypass, followed by a bowel obstruction in 2018. 2. Tubal ligation. 3. Cholecystectomy. 4. Carpal tunnel surgery. 5. Ankle surgery. 6. Trigger finger surgery. 7. Right total knee arthroplasty in [address] Walker. CURRENT MEDICATIONS: 1. Colace 100 mg twice a day as needed. 2. Cyclobenzaprine 5 mg tablet 3 times a day. 3. EpiPen as needed. 4. Invega intramuscular injection every 28 days. 5. Lisinopril 40 mg daily. 6. Minoxidil 2.5 mg daily. 7. Omeprazole 20 mg daily. 8. Prazosin 5 mg capsule daily at bedtime. 9. Propranolol 10 mg tablet 3 times a day. 10. Vitamin B1 100 mg tablet daily. 11. Vitamin D3 2000 international units capsule she takes 50 mcg daily. 12. Vraylar 3 mg capsule daily at bedtime. ALLERGIES: 1. BACTRIM-DS CAUSES THROAT SWELLING. 2. DILAUDID CAUSES A RED FACE AND ITCHING. 3. PENICILLIN WHICH CAUSES A RASH. SOCIAL HISTORY: She denies alcohol or tobacco use. She states she does vape. PHYSICIANS: The patient's primary care physician is Dr. Jean-Pierre Kim. Installation Tech is Dr. Conde REVIEW OF SYSTEMS: The patient's 12-point review of systems is negative unless as mentioned in the HPI. PHYSICAL EXAMINATION: VITAL SIGNS: Weight is 219 pounds. GENERAL: Alert and oriented. Normal insight, affect, and grooming. SKIN: Intact without rashes. Nails without clubbing or cyanosis. HEENT: Normocephalic. Conjunctivae pink. Sclerae are anicteric. NECK: Supple. LUNGS: Per medicine clear to auscultation. HEART: Per medicine is regular. ABDOMEN: Soft. EXTREMITIES: Right knee with a well healed incision. Left knee with a varus alignment. Range of motion is 5-115 degrees. There is severe tenderness and crepitus medially. There is no instability. There is mild effusion. There is an antalgic gait pattern favoring the left side. There is full strength and sensation distally. PREOPERATIVE DIAGNOSTIC DATA: Orthopedic x-rays demonstrate end-stage osteoarthritis of the left knee. There is brya-lx-siip articulation, subchondral sclerosis and osteophyte formation. EKG which was performed at the medicine preoperative clinic shows normal sinus rhythm with a heart rate of 80. LABORATORY DATA: CBC, coags and chemistries were reviewed and are satisfactory for surgery. Hematocrit is 39.3 with a hemoglobin of 12.1. GFR was 91 and hemoglobin A1c was 4.5. ASSESSMENT AND PLAN: The patient has advanced osteoarthritis of the left knee and is now scheduled for left total knee arthroplasty with Dr. Walker on 05/27/2024. She was seen by the medicine consult program, who deemed the patient to be a low cardiovascular and a low pulmonary risk. They felt she is stable and has no medical contraindications identified with proceeding with surgery. We are awaiting on cardiology's final preoperative clearance as well. It is pending an echocardiogram scheduled 05/19/2024. Unless there are significant findings on echo, cardiology feels she will be able to proceed with surgery. She will receive IV TXA and be placed on Eliquis 2.5 mg twice a day for 30 days. She will not receive Celebrex due to her history of gastric bypass and SULFA allergy. Per medicine, she has untreated lauren and we will monitor EtCo2 and O2 when sleeping. She has been counseled regarding risks, benefits of the proposed procedure. Questions have been answered and she acknowledges understanding. The patient wishes to proceed with a left total knee arthroplasty with Dr. Walker. Discharge plans are home with services. She would like to go home same day of surgery and is a candidate to do so as she did well after her last surgery going home same day. Prescriptions given at the time of history and physical today include none. She will require prescription for Eliquis 2.5 mg #60, Colace and pain medications. She already has omeprazole at home. [email or web address] Not available 05/16/2024 13:27:26 06/09/2024 06/09/2024 Assessment: Ragini ent presents with signs and symptoms consistent with TKA, including swelling, decreased ROM, strength, and antalgic gait mechanics. Plan: Continue PT @ 2x/wk for 8 weeks to decrease pain, increase ROM, optimize mechanics for functional mobility with gait and stairs, and facilitate independence with functional ADL's. Not available 05/31/2024 14:25:12 06/12/2024 06/12/2024 Assessment: Excellent ROM. Weak quad [...] FOLLOW-U P 2024 02:30P M Na Gonzalez, BLACK TOPPER Not available Not available Not available PT FOLLOW-U P 2024 02:30P M Na Gonzalez, BLACK TOPPER Not available Not available Not available POST OP 15 2024 01:00P M Alonzo Singleton PA-C Not available Not available Not available PT FOLLOW-U P 2024 10:00A M Hector Georgeser, PT Not available Not available Not available PT FOLLOW-U P 2024 09:30A M Hector Pyser, PT Not available Not available Not available PT FOLLOW-U P 2024 10:30A M Hector Pyser, PT Not available Not available Not available PT FOLLOW-U P 2024 09:00A M Hector Pyser, PT Not available Not available Not available PT FOLLOW-U P 2024 04:30P M Na Malonee, BLACK TOPPER Not available Not available Not available PT FOLLOW-U P 2024 09:30A M Na Malonee, BLACK TOPPER Not available Not available Not available PT FOLLOW-U P 2024 09:30A M Na Malonee, BLACK TOPPER Not available Not available Not available PT FOLLOW-U P 2024 09:00A M Na Fudge, BLACK TOPPER Not available Not available Not available PT FOLLOW-U P 2024 09:30A M Hector Pyser, PT Not available Not available Not available PT FOLLOW-U P 2024 09:30A M Hector Pyser, PT Not available Not available Not available PT FOLLOW-U P 2024 09:30A M Na Fudge, BLACK TOPPER Not available Not available Not available PT FOLLOW-U P 2024 09:30A M Damprasad Fudge, BLACK TOPPER Not available Not available Not available PT FOLLOW-U P 2024 09:30A M Hector Pyser, PT Not available Not available Not available PT FOLLOW-U P 2024 09:30A M Hector Pyser, PT Not available Not available Not available PT FOLLOW-U P 2024 09:30A M Na Fudge, BLACK TOPPER Not available Not available Not available PT FOLLOW-U P 2024 09:30A M Na Fudge, BLACK TOPPER Not available Not available Not available RECHECK 10 2024 10:50A M Sage Walker MD Not available Not available Not available Lab None recorded . Referral None recorded . Procedures None recorded . Surgeries None recorded . Imaging XR, knee, 3 view - rm 114 3v left knee first po [email or web address] 2024 025 [email or web address] [facility] Office, [address] [facility], [facility] [address], [place], [address], 06/10/2024 15:08:14 Medication Orders None recorded . Patient TargetsNo targets recorded. Patient InstructionsNo instructions recorded. Reason for Referral None Reported. Results Created Date Observation Date Name Description Value Unit Range Abnormal Flag Note LastModifiedBy Organization Detail LastModifiedTime 04/10/1904/11/2024 CBC WITH DIFFE RENTI AL/PL ATELE T WBC 5.8 x10e3 /uL 3.4-10 .8 normal Not Available [facility] ([facility]) [address] [facility], [place], [address], 04/11/2024 06:05:32 04/10/19 25 04/11/2024 CBC WITH DIFFE RENTI AL/PL ATELE T RBC 3.50 x10e6 /uL 3.77-5 .28 below low normal Not Available [facility] ([facility]) [address] [place], [address], 04/11/2024 06:05:32 04/10/19 25 04/11/2024 CBC WITH DIFFE RENTI AL/PL ATELE T hemoglobin 8.7 g/dL 11.1-1 5.9 below low normal Not Available [facility] ([facility]) [address] [place], [address], 04/11/2024 06:05:32 04/10/19 25 04/11/2024 CBC WITH DIFFE RENTI AL/PL ATELE T hematocrit 28.5 % 34.0-4 6.6 below low normal Not Available [facility] ([facility]) [address] [place], [address], 04/11/2024 06:05:32 04/10/19 25 04/11/2024 CBC WITH DIFFE RENTI AL/PL ATELE T MCV 81 fL 79-97 normal Not Available [facility] ([facility]) [address] [place], [address], 04/11/2024 06:05:32 04/10/19 25 04/11/2024 CBC WITH DIFFE RENTI AL/PL ATELE T MCH 24.9 pg 26.6-3 3.0 below low normal Not Available [facility] ([facility]) [address] [place], [address], 04/11/2024 06:05:32 04/10/19 25 04/11/2024 CBC WITH DIFFE RENTI AL/PL ATELE T MCHC 30.5 g/dL 31.5-3 5.7 below low normal Not Available [facility] ([facility]) [address] [place], [address], 04/11/2024 06:05:32 04/10/19 25 04/11/2024 CBC WITH DIFFE RENTI AL/PL ATELE T RDW 13.5 % 11.7-1 5.4 Not Available [facility] ([facility]) [address] [facility], [place], [address], 04/11/2024 06:05:32 04/10/19 25 04/11/2024 CBC WITH DIFFE RENTI AL/PL ATELE T platelets 489 x10e3 /uL 150-45 0 above high normal Not Available [facility] ([facility]) [address] [facility], [place], [address], 04/11/2024 06:05:32 04/10/19 25 04/11/2024 CBC WITH DIFFE RENTI AL/PL ATELE T neutrophils 49 % not estab. normal Not Available [facility] ([facility]) [address] [facility], [place], [address], 04/11/2024 06:05:32 04/10/19 25 04/11/2024 CBC WITH DIFFE RENTI AL/PL ATELE T lymphs 31 % not estab. normal Not Available [facility] ([facility]) [address] [facility], [place], [address], 04/11/2024 06:05:32 04/10/19 25 04/11/2024 CBC WITH DIFFE RENTI AL/PL ATELE T monocytes 12 % not estab. normal Not Available [facility] ([facility]) [address] [facility], [place], [address], 04/11/2024 06:05:32 04/10/19 25 04/11/2024 CBC WITH DIFFE RENTI AL/PL ATELE T eos 3 % not estab. normal Not Available [facility] ([facility]) [address] [place], [address], 04/11/2024 06:05:32 04/10/19 25 04/11/2024 CBC WITH DIFFE RENTI AL/PL ATELE T basos 1 % not estab. normal Not Available [facility] ([facility]) [address] [place], [address], 04/11/2024 06:05:32 04/10/19 25 04/11/2024 CBC WITH DIFFE RENTI AL/PL ATELE T immature cells APPLIED MARINE PHYSICS PROFESSOR Not Available [facility] ([facility]) [address] [place], [address], 04/11/2024 06:05:32 04/10/19 25 04/11/2024 CBC WITH DIFFE RENTI AL/PL ATELE T neutrophils (absolute) 2.9 x10e3 /uL 1.4-7. 0 normal Not Available [facility] ([facility]) [address] [place], [address], 04/11/2024 06:05:32 04/10/19 25 04/11/2024 CBC WITH DIFFE RENTI AL/PL ATELE T lymphs (absolute) 1.8 x10e3 /uL 0.7-3. 1 normal Not Available [facility] ([facility]) [address] [place], [address], 04/11/2024 06:05:32 04/10/19 25 04/11/2024 CBC WITH DIFFE RENTI AL/PL ATELE T monocytes(ab solute) 0.7 x10e3 /uL 0.1-0. 9 normal Not Available [facility] ([facility]) [address] [place], [address], 04/11/2024 06:05:32 04/10/19 25 04/11/2024 CBC WITH DIFFE RENTI AL/PL ATELE T eos (absolute) 0.2 x10e3 /uL 0.0-0. 4 normal Not Available [facility] ([facility]) [address] [place], [address], 04/11/2024 06:05:32 04/10/19 25 04/11/2024 CBC WITH DIFFE RENTI AL/PL ATELE T baso (absolute) 0.0 x10e3 /uL 0.0-0. 2 normal Not Available [facility] ([facility]) [address] [facility], [place], [address], 04/11/2024 06:05:32 04/10/19 25 04/11/2024 CBC WITH DIFFE RENTI AL/PL ATELE T immature granulocytes 4 % not estab. Not Available [facility] ([facility]) [address] [facility], [place], [address], 04/11/2024 06:05:32 04/10/19 25 04/11/2024 CBC WITH DIFFE RENTI AL/PL ATELE T immature grans (abs) 0.2 x10e3 /uL 0.0-0. 1 above high normal (An eleva mildred perce ntage of Immat ure Granu locyt es has not been found to be clini rubén signi fican t as a sole clini gerber predi ctor of disea se. Does NOT inclu de bands or blast cells . Pregn warner assoc iated physi ologi gerber leuko cytos is may also show incre ased immat ure granu locyt es witho ut clini gerber signi fican ce.) Not Available [facility] ([facility]) [address] [facility], [place], [address], 04/11/2024 06:05:32 04/10/19 25 04/11/2024 CBC WITH DIFFE RENTI AL/PL ATELE T NRBC APPLIED MARINE PHYSICS PROFESSOR Not Available [facility] ([facility]) [address] [place], [address], 04/11/2024 06:05:32 04/10/19 25 04/11/2024 CBC WITH DIFFE RENTI AL/PL ATELE T hematology comments: APPLIED MARINE PHYSICS PROFESSOR Not Available [facility] ([facility]) [address] [place], [address], 04/11/2024 06:05:32 04/10/19 25 04/11/2024 ELECT ROLYT E PANEL sodium 136 mmol/ L 134-14 4 normal Not Available [facility] ([facility]) [address] [facility] [place], [address], 04/11/2024 06:05:33 04/10/19 25 04/11/2024 ELECT ROLYT E PANEL potassium 5.1 mmol/ L 3.5-5. 2 normal Not Available [facility] ([facility]) [address] [facility] [place], [address], 04/11/2024 06:05:33 04/10/19 25 04/11/2024 ELECT ROLYT E PANEL chloride 99 mmol/ L 96-106 normal Not Available [facility] ([facility]) [address] [place], [address], 04/11/2024 06:05:33 04/10/19 25 04/11/2024 ELECT ROLYT E PANEL carbon dioxide, total 24 mmol/ L 20-29 normal Not Available [facility] ([facility]) [address] [place], [address], 04/11/2024 06:05:33 04/10/19 25 04/11/2024 BUN+C REAT BUN 10 mg/dL 6-24 normal Not Available [facility] ([facility]) [address] [place], [address], 04/11/2024 06:05:34 04/10/19 25 04/11/2024 BUN+C REAT creatinine 0.73 mg/dL 0.57-1 .00 normal Not Available [facility] ([facility]) [address] [place], [address], 04/11/2024 06:05:34 04/10/19 25 04/11/2024 BUN+C REAT eGFR 103 mL/mi n/1.7 3 >59 normal Not Available [facility] ([facility]) [address] [facility], [place], [address], 04/11/2024 06:05:34 04/10/19 25 04/11/2024 BUN+C REAT BUN/creatini ne ratio 14 9-23 normal Not Available [facility] ([facility]) [address] [facility], [place], [address], 04/11/2024 06:05:34 04/10/19 25 04/11/2024 PROTH ROMBI N TIME (PT) INR 0.9 0.9-1. 2 Refer ence inter rush is for non-a ntico agula mildred patie nts. Sugge sted INR thera peuti c range for Vitam in K antag onist thera py: Stand selvin Dose (mode rate inten sity thera peuti c range ): 2.0 - 3.0 Highe r inten sity thera peuti c range 2.5 - 3.5 Not Available [facility] ([facility]) [address] [facility], [place], [address], 04/11/2024 06:05:35 04/10/19 25 04/11/2024 PROTH ROMBI N TIME (PT) prothrombin time 10.3 sec 9.1-12 .0 normal Not Available [facility] ([facility]) [address] [facility], [place], [address], 04/11/2024 06:05:35 04/10/19 25 04/11/2024 HEMOG LOBIN A1C hemoglobin A1C 5.3 % 4.8-5. 6 normal Predi abete s: 5.7 - 6.4 Diabe dada: >6.4 Glyce jolanta contr ol for adult s with diabe dada: <7.0 Not Available [facility] ([facility]) [address] [facility], [place], [address], 04/11/2024 06:05:36 04/10/19 25 04/11/2024 PTT, ACTIV ATED APTT 27 sec 24-33 normal This test has not been valid ated for monit oring unfra ction ated hepar in thera py. aPTT- based thera peuti c range s for unfra ction ated hepar in thera py have not been estab cece posey For gener al guide lines on Hepar in monit oring , refer to the [facility] [place] elder. Not Available [facility] ([facility]) [address] [facility], [place], [address], 04/11/2024 06:05:37 04/10/19 25 04/11/2024 GLUCO SE glucose 87 mg/dL 70-99 normal Not Available [facility] ([facility]) [address] [facility], [place], [address], 04/11/2024 06:05:38 05/28/19 25 05/27/2024 XR, knee, 4 or more view No observ ation record ed. S[facility] [address], [place], [address], 05/28/2024 14:53:28 06/11/19 25 06/10/2024 XR, knee, 3 view [email or web address]:/ [email or web address] ?Encry pted=s hAaTro YD8dLq bEUv6g %2BXZw aYqtaq 0bqfl% 2Fg9IQ a4ajBk vP9nXo QUaueC m3YtLR FvZlgJ JJ8mAn HZtai3 8r8524 AC0Kla n2HUqa nKiQtr MwF INTERFACE [facility] [address], [place], [address], 06/10/2024 13:28:17 06/11/19 25 06/10/2024 XR, knee, 3 view http:/ [email or web address] ?Encry pted=s hAaTro YD8dLq bEUv6g %2BXZw aYqtaq 0bqfl% 2Fg9IQ a4ajBk vP9nXo QUaueC m3YtLR FvZlgJ JJ8mAn HZtai3 0o0697 AC0Kla n2HUqa nKiQtr MwF INTERFACE [facility] [address], [place], [address], 06/10/2024 13:28:19 Result Notes None recorded. Problems Name Problem SNOMED Code Status Onset Date Resolution Date Notes Provider Name and Address Organization Details Recorded Time Fracture of ankle 39613532 Active 2023 KIM brunsonRobert Breck [facility] 4 15:14:42 No complaints 998158391 Active Status : 'I'; Not Available [facility] 4 09:21:06 Postoperat laurence pain 039740807 Active 2024 Huma Augustin APRN [address], [place], [address] , [facility] 5 12:23:32 Mass of joint of left wrist 9949801047801 9101 Active 2023 Cammy Ovalle, OTR/L,CHT [address], [place], [address] , [facility] 4 09:39:49 Problem Notes None recorded. Procedures Surgical History Date Name Laterality Status Provider Name and Address Organization Details Recorded Time 06/13/19 55362: Therapeutic Activities (1:1) completed Na Gonzalez, BLACK TOPPER [address], [place], [address], [facility] 06/13/2024 07:27:56 06/13/19 21436 Therapeutic Exercise (1:1) completed Na Gonzalez, BLACK TOPPER [address], [place], [address], [facility] 06/13/2024 07:27:26 06/13/19 02795: Manual therapy completed Na Gonzalez, BLACK TOPPER [address], [place], [address], [facility] 06/13/2024 07:27:52 06/10/19 37375 Therapeutic Exercise (1:1) completed Hector Pyser, PT [address], [place], [address], [facility] 05/31/2024 14:22:51 06/10/19 11039: Low complexity PT Eval completed Hector Pyser, PT [address], [place], [address], [facility] 05/31/2024 14:22:53 05/01/19 63665 Therapeutic Exercise (1:1) completed Hector Pyser, PT [address], [place], [address], [facility] 04/29/2024 14:50:39 05/01/19 12633: Low complexity PT Eval completed Hector Pyser, PT [address], [place], [address], [facility] 04/29/2024 14:50:41 12/04/19 24 Sports Knee 4&1 completed Juancarlos Iyer PA-C [address], [place], [address], [facility] 12/04/2023 11:27:50 06/08/19 24 Splint_Short Arm Fiberglass_11+ completed JUNI SHELTON [facility] 06/08/2023 13:25:25 Imaging Results Imaging Date Name Status LastModified by Organiz ation Details LastModified Time 05/27/2024 XR, knee, 4 or more view completed SABIHA [facility] [address], [place], [address], 05/28/2024 14:53:28 06/10/2024 XR, knee, 3 view completed ROSELIA [facility] [address], [place], [address], 06/10/2024 13:28:17 06/10/2024 XR, knee, 3 view completed INTERFACE [facility] [address] [facility] [address], [place], [address], 06/10/2024 13:28:19 Procedure Notes None recorded. Medical Equipment None Reported. Allergies Allergen ID Allergen Name Allergen Category Reaction Reaction Severity Criticality Documentation Date Start Date Code Code System Note Provider Name and Address Organization Details Recorded Time 789814 penicilli n G benzathin e medicatio n Not available Not available Not available 04/23/20232012 7982 RxNorm GOMEZ KELBY [facility] 4 13:22:51 995889 Dilaudid medicatio n Not available Not available Not available 04/23/20232012 34697 3 RxNorm GOMEZ LAMA [facility] 13:22:48 522026 Bactrim medicatio n Not available Not available Not available 04/23/20232020 16490 9 RxNorm JACKIE BLAYNE [facility] 5 14:12:53 Medications Name Sig Start Date [...] height Body mass index (BMI) Body weight Provider Name and Address Organization Details Last Updated DateTime 05/16/2024 157.48 cm 40.1 kg/m2 96387.73 [facility] 05/16/2024 08:59:33 Date Recorded Body height Body mass index (BMI) Body weight Systolic blood pressure Diastolic blood pressure Provider Name and Address Organization Details Last Updated DateTime 06/10/2024 157.48 cm 40.1 kg/m2 18987.73 g 110 mm[Hg] 72 mm[Hg] Андрей Beltran [facility] [facility] 13:12:32 Social History None recorded. Functional Status None recorded. Mental Status None recorded. Family History Nothing Reported. Medical History Condition Response Allergies/Hayfever N Coronary Artery Disease N Breathing or lung disorders N Anxiety/Depression Y Emphysema N Nerve Disorders N Thyroid Problems N COPD N Pacemaker N Kidney/Bladder Problems N Anemia N Vascular Disease N Heart Trouble N Heart Attack (NC) N Gastrointestinal Disease N Cholesterol N Diabetes [...] SNOMED-CT Code Diagnosis ICD10 Code Diagnosis Note [id number] Scott Virgen MD [facility] [address] [place] [address] 06/08/2023 13:04:19 06/08/2023 13:29:48 Postoperative care [id number] Z48.89 [id number] Cammy Ovalle, OTR/L,CHT [facility] [address] [place] [address] 06/19/2023 08:53:48 06/19/2023 09:24:40 Postoperative care [id number] Z48.89 The surgical dressing is removed and the suture tails are clipped as well as the Steri-Stri ps are removed. Scar massage was instructed with a handout given to the patient today. Home exercises focusing on gentle wrist and digit active range of motion were also reviewed. A therapy putty program to begin in 2 weeks was advised with a handout issued. The patient is advised that they may start to use the hand functional ly for light activities but to avoid any lifting or pinching or gripping at this time. Further instructio ns not to lift anything heavier than a coffee cup with the involved extremity and to remain non weight bearing on the upper extremity and to continue participat ing in active range of motion exercises without straining until the next 4 weeks. If any redness, swelling, drainage or do appear from the incision site, the patient is instructed to call us immediatel y. The next appointmen t will be with the surgeon at 6 weeks postop. Mass of tara int of left wrist [id number] M25.832 The patient reports her difficulti es over the last 2 weeks having a dressing on the hand and performing functional tasks. We reviewed the anatomy and surgical procedure. all questions are answered. Upon removal of the postop dressing, the incision site is inspected. It is found to be clean and dry with an intact running suture with tail and Steri-Stri ps. Patient has intact neurovascu lar structures with only slight tenderness along the sides of the incision. No surroundin g erythema, wound drainage, warmth or signs of infection. There is typical slight palpable postoperat laurence edema just surroundin g the incision. There is no proximal forearm muscle pain. Active range of motion is limited as expected however the patient is able to show midrange of wrist range of motion and does have full motion of the digits with full sensation throughout the hand. [id number] MD Dawn Leong [address] [place] [address] 07/04/2023 13:05:09 07/04/2023 14:32:21 Fracture of ankle [id number] S82.92XD [id number] MD Dawn Perry [address] [place] [address] 07/18/2023 09:13:32 08/07/2023 11:36:21 Ganglion cyst of left volar wrist [id number] M67.940 [id number] MD Dawn Leong 3rd floor [address] [place] [address] 08/29/2023 12:57:16 09/29/2023 06:09:53 Fracture of ankle [id number] S82.92XD [id number] ALFRED Souza [address] floor [address] [place] [address] 12/04/2023 10:33:27 12/27/2023 15:37:25 Pain of left knee joint [id number] 18743 M25.562 Osteoarthr itis of knee 471292330 M17.9 [id number] Karlie preciado MD [facility] [address] [place] [address] 03/14/2024 08:45:12 04/01/2024 15:12:53 Carpal tunnel syndrome of right wrist [id number] 27846 G56.01 [id number] MD [facility] Salguero [facility] [place] [address] 04/10/2024 13:38:45 04/23/2024 08:50:58 Osteoarthritis of left knee joint [id number] 52837 M17.12 [id number] Hector Sams, PT [facility] [address] [place] [address] 04/30/2024 16:44:12 04/30/2024 17:31:01 Osteoarthritis of knee 401172384 M17.12 [id number] Cruzito Sabillon, APPLIED [employer]INE [employer]YS[employer] PROFESSOR [facility] [address] [place] [address] 05/16/2024 08:50:29 05/30/2024 04:02:27 Osteoarthritis of left knee joint [id number] 41552 M17.12 [id number] Hector Sams, PT [facility] [address] [place] [address] 06/09/2024 16:25:39 06/09/2024 17:48:56 History of left total knee replacement [id number] 749539 Z96.652 Z47.1 [id number] Alonzo Singleton PA-C [facility] [address] [place] [address] 06/10/2024 12:44:32 06/10/2024 14:26:20 Knee joint prosthesis present [id number] 02 Z96.731 [id number] Hector Sams, PT [facility] [address] [place] [address] 06/12/2024 11:16:51 06/12/2024 12:04:25 History of left total knee replacement [id number] 728402 Z96.652 Z47.1 Health Concerns Section Related Observation LastModified by Organization Detai ls LastModified Time None Recorded Concern Status LastModified by Organization Details LastModified Time None Recorded Advance Directives Directive None Recorded Payers Encounter Date Sequence Insurance Name Policy Number Policy Fernandez Covered Member ID Fernandez Member ID Guarantor Name 04/30/2024 1 [facility] - DOS ON OR AFTER 2022 - ONE CARE (MEDICARE REPLACEMENT/ADV ANTAGE - HMO) Atiya Dotson [id number] Atiya Dotson 05/16/2024 1 [facility] - DOS ON OR AFTER 2022 - ONE CARE (MEDICARE REPLACEMENT/ADV ANTAGE - HMO) Atiya Dotson [id number] Atiya Dotson 06/09/2024 1 [facility] - DOS ON OR AFTER 2022 - ONE CARE (MEDICARE REPLACEMENT/ADV ANTAGE - HMO) Atiya Dotson [id number] Atiyaabisai Dotson 06/10/2024 1 [facility] - DOS ON OR AFTER 2022 - ONE CARE (MEDICARE REPLACEMENT/ADV ANTAGE - HMO) Atiya Dotson [id number] Atiyaabisai Dotson 06/12/2024 1 [facility] - DOS ON OR AFTER 2022 - ONE CARE (MEDICARE REPLACEMENT/ADV ANTAGE - HMO) Atiya Dotson [id number] Atiya Dotson Notes Date Note Type Note Provider Name and Address Organization Details Recorded Time 5 text/html Patient is 48 year old female, with chronic history of knee pain and OA. She having been treated previously for right knee arthritis and eventual R total knee arthroplasty by Dr. Walker in February 2022, good results. Her left knee is now bothering her for 2 years. Cortisone provided no significant relief. Present seen today for prehab visit for scheduled L TKA on 05/23/24. Reviewed post-operative mobility and mechanics with appropriate assistive device. Has 0 steps into home (elevator) and 0 steps inside home. Demonstrates good understanding of post-operative expectations and HEP. 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 Patient's goals are to RTW, resume pain free ADL's, recreational walking Hector Sams, PT [address] [facility] [address], [place], [address], [facility] 04/30/2024 17:33:29 5 text/html Patient is 48 year old female, with chronic history of knee pain and OA. She having been treated previously for right knee arthritis and eventual R total knee arthroplasty by Dr. Walker in February 2022, good results. Her left knee is now bothering her for 2 years. Cortisone provided no significant relief. Presents s/p L TKA 05/27/24. Received home care PT x 3v thru 06/04/24. Has 0 steps into home (elevator) and 0 steps inside home. 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 Patient goals are to RTW, resume pain free ADL's, recreational walking, resume gym Hector Sams, PT [address], [place], [address], [place] [facility] 06/09/2024 17:03:02 5 text/html I am seeing the patient today [...] TESTS X-rays ordered, obtained and reviewed at [facility] today, three views, reveals maintained alignment of [...] is any complications. Alonzo Singleton PA-C [address], [place], [address], [facility] 06/10/2024 14:26:17 5 text/html Pt reports 6/10 pain upon entering therapy. Took px medication an hour prior to therapy. Na Gonzalez, BLACK TOPPER [address] [facility] [address], [place], [address], [facility] 06/13/2024 08:33:01 OBGyn Episode No OBEpisode recorded.
--- OUTSIDE RECORDS SUMMARY | 2024-06-15 22:15 | XMS_ITS | Encounter Summary ---
Author Organization [facility] Address [address] [place] [address] Care Team Providers Care Equipment Worker Name Role Phone Darya Hamilton MD Primary Care Provider Unava nel [facility], Pcp Primary Care Provider Unavailabl e Darya Hamilton MD Primary Care Provider Unava Lewis Galvan MD Primary Care Provider Un available Dipesh Kern MD Primary Care Provide r Unavailable Becca Hinkle MD Primary Care Provider Unavailable Reason for Visit * Reason Onset Date Comments REFERRAL 06/17/2014 Encounter Details Date Type Department Care Team Description 06/17/2014 Telephone Urology [address] [place] [id number] Wan Rosa MD REFERRAL Social History Tobacco Use Types Packs/Day Years Used Date Smoking Tobacco: Every Day Cigarettes 1 Smokeless Tobacco: Never Comments:started smoking at 14 Alcohol Use Standard Drinks/Week Comments No 0 (1 standard drink = 0.6 oz pur e alcohol) Sex Assigned at Date Recorded Not on file documented as of this encounter Miscellaneous Notes * Telephone Encounter - Judith Harris - 06/17/2014 12:02 PM EDT Pt was referred to Urology re: will request a referral to Urology. Reason for referral: incontinence Priority: Next Available Payor: Not third-constitution party related Patient did not keep their scheduled appointment with Dr. Rosa on 06/11 nor did they respond to an attempt to r/s this visit_FYI documented in this encounter Plan of Treatment Not on file documented as of this encounter Visit Diagnoses Not on filedocumented in this encounter Care Teams Equipment Worker Relationship Specialty Start Date End Date Darya Hamilton MD PCP - General 06/30/10 03/15/15 [facility], [facility] PCP - General Internal Medicine 03/16/15 06/20/16 Darya Hamilton MD PCP - General Internal Medicine 06/21/16 11/12/16 Lewis Espino MD PCP - General Internal Medicine 11/13/16 Dipesh Kern MD PCP - General Internal Medicine 10/15/18 Figueroa-Becca Callaway MD PCP - General Internal Medicine 03/23/21 documented as of this encounter
--- OUTSIDE RECORDS SUMMARY | 2024-06-15 22:15 | XMS_ITS | Encounter Summary ---
Author Organization [facility] Address [address] [place] [address] Care Team Providers Care Supervisor Rough End Name Role Phone Darya Hamilton MD Primary Care Provider Unava nel [facility], Pcp Primary Care Provider Unavailabl e Darya Hamilton MD Primary Care Provider Unava Lewis Galvan MD Primary Care Provider Un available Dipesh Kern MD Primary Care Provide Becca Dunbar MD Primary Care Provider Unavailable Reason for Visit * Reason Onset Date Comments Walk In 09/03/2014 medication problems 09/03/2014 Encounter Details Date Type Department Care Team Description 09/03/2014 Telephone Adult Medicine [address] [address] Darya Hamilton MD Walk In; medication problems [...] her head last week, she went to [facility] and had [facility] scan was told [...] on filedocumented in this encounter Care Teams Supervisor Rough End Relationship Specialty Start Date End Date Darya Hamilton MD PCP - General 06/30/10 03/15/15 [facility], Pcp PCP - General Internal Medicine 03/16/15 06/20/16 Darya Hamilton MD PCP - General Internal Medicine 06/21/16 11/12/16 Lewis Espino MD PCP - General Internal Medicine 11/13/16 Dipesh Kern MD PCP - General Internal Medicine 10/15/18 Becca Hinkle MD PCP - General Internal Medicine 03/23/21 documented as of this encounter
--- OUTSIDE RECORDS SUMMARY | 2024-06-15 22:15 | XMS_ITS | Encounter Summary ---
Author Organization [facility] Address [address] [place] [address] Care Team Providers Care Keyboard Specialist Name Role Phone Darya Hamilton MD Primary Care Provider Ronak Beasley, Pcp Primary Care Provider Unavailabl e Darya Hamilton MD Primary Care Provider Lewis Birmingham MD Primary Care Provider Un available Dipesh Kern MD Primary Care Provide r Unavailable Becca Hinkle MD Primary Care Provider Unavailable Encounter Details Date Type Department Care Team Description 06/08/2014 [employer]/[facility] Report Medical Records [address] [place] [address] Abstract, Provider Social History Tobacco Use Types [...] on filedocumented in this encounter Care Teams Keyboard Specialist Relationship Specialty Start Date End Date Darya Hamilton MD PCP - General 06/30/10 03/15/15 [facility], Pcp PCP - General Internal Medicine 03/16/15 06/20/16 Darya Hamilton MD PCP - General Internal Medicine 06/21/16 11/12/16 Lewis Espino MD PCP - General Internal Medicine 11/13/16 Dipesh Kern MD PCP - General Internal Medicine 10/15/18 Becca Hinkle MD PCP - General Internal Medicine 03/23/21 documented as of this encounter
[2024-06-15 22:17] LABS: MANUAL DIFF FLAG NO
[2024-06-15 22:18] LABS: Basophils Percent Auto 0.5 % (0-2); Eosinophils Absolute Auto 0.1 X10*3/uL (0.0-0.4); Eosinophils Percent Auto 2.2 % (0-4); Hematocrit 29.7 % (37.0-47.0); Hemoglobin 9.1 g/dl (12.0-16.0); Imm Gran Abs Auto 0.01 X10*3/uL (0.00-0.03); Imm Gran Pct Auto 0.2 % (0.0-0.4); Lymphocytes Absolute Auto 1.9 X10*3/uL (1.2-4.9); Lymphocytes Percent Auto 30.1 % (20-40); Mean Corpuscular HGB Conc 30.6 g/dl (31.0-35.0); Mean Corpuscular Volume 78.4 fL (80.0-98.0); Mean Platelet Volume 9.5 fL (9.4-12.3); Monocytes Absolute Auto 0.5 X10*3/uL (0.1-1.2); Monocytes Percent Auto 7.8 % (2-11); Neutrophils Absolute Auto 3.8 x10*3/uL (2.0-8.3); Neutrophils Percent Auto 59.2 % (45-73); Platelet Count 432 X10*3/uL (160-400); Red Blood Count 3.79 X10*6/uL (4.20-5.50); Red Cell Distribution Width 14.7 % (11.0-16.0); White Blood Count 6.4 X10*3/uL (4.8-10.8)
[2024-06-15 22:32] LABS: Alanine Aminotransferase 13 U/L (0-31); Albumin Level 4.2 g/dL (3.5-5.0); Alkaline Phosphatase 95 U/L (39-117); Anion Gap 13 (12-20); Aspartate Amino Transferase 23 U/L (5-31); Bilirubin Total 0.6 mg/dL (0.0-1.0); Blood Urea Nitrogen 8 mg/dL (9-16); Calcium 9.6 mg/dL (8.4-10.2); Carbon Dioxide 24 mmol/L (22-29); Chloride 102 mmol/L (96-108); Creatinine Clr Calc Pharmacy 98.9; Estimated Glomerular Filt Rate > 60; Glucose Random 90 mg/dL (60-115); Potassium 4.3 mmol/L (3.3-5.1); Sodium 135 mmol/L (135-145); Total Protein 7.9 g/dL (6.5-8.0)
--- NOTE | 2024-06-15 23:23 | PC.NURSE ---
Care assumed of pt at this time. Awaiting provider.
--- NOTE | 2024-06-16 00:19 | ED.GENADULT ---
HPI - General Adult General Chief complaint: Dizziness Stated complaint: light headed and dizzy Time Seen by Provider: 06/16/24 00:10 History of Present Illness ED Provider: Dr. Mercer HPI narrative: 48 y/o F patient; PMH obesity on Zepbound (for the last 2 weeks), HTN, hx polysubstance abuse, PUD, bipolar disorder; presents from home reporting approx 2 hours of lightheadedness/dizziness especially with changes in position. The patient reports a recent intentional 35lb weight loss. She was concerned tonight because her blood pressure machine was broken and she did not want to go to sleep with low blood pressure. She otherwise denies: fever or chills, SOB, cough/congestion, abdominal pain. She states she currently takes Lisinopril 40mg once a day and Propranolol 10mg for palpitations. Related Data Home Medications ?Medication ?Instructions ?Recorded ?Confirmed folic acid 1 mg tablet 1 mg PO DAILY 07/30/23 05/13/24 lisinopril 40 mg tablet 40 mg PO DAILY 01/22/24 05/13/24 minoxidil 2.5 mg tablet 1.25 mg PO DAILY 01/22/24 05/13/24 celecoxib 200 mg capsule (Celebrex) 200 mg PO BEDTIME 03/12/24 05/13/24 cyclobenzaprine 10 mg tablet 10 mg PO TID 03/12/24 05/13/24 magnesium citrate 125 mg capsule 250 mg PO DAILY 03/12/24 05/13/24 naltrexone microspheres 380 mg 380 mg IM QMONTH 03/12/24 05/13/24 intramuscular suspension,extended release (Vivitrol) thiamine HCl (vitamin B1) 100 mg 100 mg PO DAILY 03/12/24 05/13/24 tablet multivitamin 1 tab PO BID 03/25/24 05/13/24 omeprazole 20 mg capsule,delayed 20 mg PO DAILY@0630 03/25/24 05/13/24 release epinephrine 0.3 mg/0.3 mL 1 mg IM DAILY PRN 04/17/24 05/13/24 injection, auto-injector Previous Rx's ?Medication ?Instructions ?Recorded prazosin 5 mg capsule 5 mg PO BEDTIME 30 days #30 caps 04/04/21 topiramate 50 mg tablet 50 mg PO BEDTIME as directed #30 04/11/24 tabs cholecalciferol (vitamin D3) 50 100 mcg (2 x 50 mcg (2,000 unit)) 04/21/24 mcg (2,000 unit) tablet (Vitamin PO DAILY #60 tabs D3) cariprazine 3 mg capsule 3 mg PO DAILY #30 caps 04/22/24 gabapentin 300 mg capsule 300 mg PO TID PRN Anxiety, pain 04/24/24 #90 caps propranolol 10 mg tablet See Rx Instructions .Route 04/24/24 .COMPLEX as directed #120 tabs docusate sodium 100 mg capsule 100 mg PO BID #60 caps 05/07/24 sennosides 8.6 mg tablet (Senna 17.2 mg (2 x 8.6 mg) PO BEDTIME 05/11/24 Lax) #90 tabs bisacodyl 5 mg tablet,delayed 10 mg (2 x 5 mg) PO BEDTIME #180 05/12/24 release (Dulcolax (bisacodyl)) tabs Allergies Allergy/AdvReac Type Severity Reaction Status Date / Time hydromorphone Allergy Intermediate Rash Verified 06/15/24 21:59 acyclovir Allergy Unknown Unknown Verified 06/15/24 21:59 insect venom [INSECT BITES] Allergy Unknown Difficulty Verified 06/15/24 21:59 Breathing sulfamethoxazole Allergy Unknown Anaphylaxis Verified 06/15/24 21:59 [From BACTRIM] trimethoprim [From BACTRIM] Allergy Unknown Anaphylaxis Verified 06/15/24 21:59 Penicillins [PCN] Allergy Rash Verified 06/15/24 21:59 Review of Systems Review of Systems: Yes all other systems are reviewed and are negative Neurologic: Denies Abnormal speech present and Denies Sensory deficit (Neuro) [facility] Past Medical History Attestation statement: The following information was validated with the patient. Source: old records reviewed Medical History Hypertension Morbid obesity with BMI of 40.0-44.9, adult Bipolar I disorder, most recent episode (or current) depressed Hx of migraines Osteoarthritis of lower back Lumbar herniated disc HTN (hypertension) Diabetes Substance dependence, daily use Lumbar herniated disc Trigger finger Carpal tunnel syndrome Bowel obstruction Abdominal wall ulcer LGSIL on Pap smear of cervix PTSD (post-traumatic stress disorder) Cocaine abuse Baclofen overdose Bipolar 1 disorder, manic, moderate Alcohol abuse Substance abuse Psychiatric diagnosis Hypertension Surgical History History of total knee replacement (TKR) H/O colonoscopy H/O gastric sleeve History of ankle surgery History of carpal tunnel surgery of right wrist Total knee replacement status H/O removal of cyst Gastric bypass status for obesity Hx of tubal ligation History of stress incontinence procedure using tension free vaginal tape History of knee replacement procedure of right knee History of cholecystectomy History of ankle surgery Family History Family History Family/Other Breast cancer Maternal Aunt Cervical cancer Mother Stomach cancer Social History Social History Household Members: None Household Members Other:: lives by self Housing: Apartment Do you presently have visiting nurse or other home services: Yes (Willie [facility]aac) Unable to assess alcohol history related to: Unknown Alcohol intake: former Comment: DC 04/24/24 Patient Tobacco Use Status: Current everyday Tobacco user Tobacco use type: Cigarette Cigarette Packs Per Day: 0.5 Cigarettes Per Day: 10.0 Years Smoked: 34 e-Cigarette/Vaping Use: Currently Using Second Hand Smoke Exposure: No Substance Use Type: Marijuana Advance Directives: Yes Advance Directives on File: Yes Advance Directives Date on File: 03/18/21 service: No 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al status: unemployed 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 handed/ [employer] Sexual orientation: Bisexual Physical Exam ED Vital Signs: Vital Signs - 24 hr 06/15/24 21:55 06/15/24 22:15 06/16/24 00:22 Temperature 97.7 F 97.6 F Pulse Rate 84 78 75 Respiratory Rate 18 18 Blood Pressure 112/83 104/70 111/74 Pulse Oximetry 99 100 Oxygen Delivery Method Room Air Room Air 06/16/24 00:23 06/16/24 00:23 Temperature Pulse Rate 89 94 Respiratory Rate Blood Pressure 107/74 105/70 Pulse Oximetry Oxygen Delivery Method BMI result Body Mass Index 36.3 Patient is afebrile and hemodynamically stable. Const General: cooperative and no acute distress Orientation/consciousness: patient oriented x3 HENMT Head: Yes atraumatic Eyes General: appearance normal, both eyes and all related structures Pupils: Equal, round and reactive pupils present EOM: EOMs intact bilaterally Neck Neck: Yes normal visual inspection, Yes full ROM, Yes supple and No tender Chest Chest palpation & inspection: normal inspection of the chest and normal palpation of entire chest wall Resp Effort & Inspection: normal respiratory effort, able to speak in complete sentences, no cough and no respiratory distress Auscultation: clear to auscultation bilaterally Cardio Rate: regular rate Rhythm: regular rhythm Peripheral pulses: Peripheral pulses 2+ throughout GI Inspection: Yes normal to inspection, No Abdominal wall edema and No distended Palpation (GI): Soft to palpation, not firm, nontender, no guarding and not rigid Auscultation: normal bowel sounds Back/Spine/Pelvis Back: No back tenderness Neuro General: patient oriented x3 Cranial nerves: Yes Equal, round and reactive pupils present Cognition (Neuro): normal cognition Speech: No Abnormal speech present Gait exam (Neuro): Normal gait present Motor exam (neuro): 5/5 motor strength present throughout Sensory Exam: No Sensory deficit (Neuro) Course Course Course Narrative: Patient is afebrile and hemodynamically stable. Will obtain laboratory studies and orthostatic vitals. Labs reviewed. No leukocytosis.. Hgb 9.1, this is not too far off patient's baseline anemia 8.3 - 11.2 over the last several months. Patient states she has not been losing blood from anywhere and is in fact already taking iron for known anemia. Patient's orthostatic vitals are reassuring. She is neurologically intact. Patient has plan to speak with PCP tomorrow to discuss possibly decreasing her Lisinopril dose. The patient's PCP is also the one monitoring her Zepbound, she is still on the loading dose. Plan: Discharge to home with PCP follow up Return precautions given Medical Decision Making Lab Data 06/15/24 22:12 06/15/24 22:12 Labs: Lab Results 06/15/24 Range/Units 22:12 WBC 6.4 (4.8-10.8) X10*3/uL RBC 3.79 L (4.20-5.50) X10*6/uL Hgb 9.1 L (12.0-16.0) g/dl Hct 29.7 L (37.0-47.0) % MCV 78.4 L (80.0-98.0) fL MCH 24.0 L (27.0-33.0) pg MCHC 30.6 L (31.0-35.0) g/dl RDW 14.7 (11.0-16.0) % Plt Count 432 H (160-400) X10*3/uL MPV 9.5 (9.4-12.3) fL Immature Gran % (Auto) 0.2 (0.0-0.4) % Neut % (Auto) 59.2 (45-73) % Lymph % (Auto) 30.1 (20-40) % [place] % (Auto) 7.8 (2-11) % Eos % (Auto) 2.2 (0-4) % Baso % (Auto) 0.5 (0-2) % Lymph # (Auto) 1.9 (1.2-4.9) X10*3/uL [place] # (Auto) 0.5 (0.1-1.2) X10*3/uL Eos # (Auto) 0.1 (0.0-0.4) X10*3/uL Baso # (Auto) 0.0 (0.0-0.2) X10*3/uL Abs Immat Gran (auto) 0.01 (0.00-0.03) X10*3/uL Absolute Neuts (auto) 3.8 (2.0-8.3) x10*3/uL Absolute Nucleated RBC 0.000 (0.0-0.012) X10*3/uL Nucleated RBC % (auto) 0.0 (0.0-0.2) /100WBC Sodium 135 (135-145) mmol/L Potassium 4.3 (3.3-5.1) mmol/L Chloride 102 (96-108) mmol/L Carbon Dioxide 24 (22-29) mmol/L Anion Gap 13 (12-20) BUN 8 L (9-16) mg/dL Creatinine 0.77 (0.5-1.4) mg/dL Estim Creat Clear Calc 98.9 Estimated GFR > 60 Random Glucose 90 (60-115) mg/dL Calcium 9.6 (8.4-10.2) mg/dL Total Bilirubin 0.6 (0.0-1.0) mg/dL AST 23 (5-31) U/L ALT 13 (0-31) U/L Alkaline Phosphatase 95 (39-117) U/L Total Protein 7.9 (6.5-8.0) g/dL Albumin 4.2 (3.5-5.0) g/dL Discharge Plan Discharge Clinical Impression: Anemia, Lightheadedness Patient Disposition: Home, Self-Care Instructions: Anemia (ED), Lightheadedness (ED) Additional Instructions: As we discussed, your work up in the emergency department today was reassuring. Your lab work showed a mildly low hemoglobin of 9. Your orthostatic vitals were normal. Call your primary doctor tomorrow (06/16/2024) as we discussed to make an appointment to review your blood pressure medication dose. Return to the emergency department for: Severe headache Numbness/tingling/weakness in your arms or legs Slurred speech Facial droop Prescriptions: No Action docusate sodium 100 mg capsule 100 mg PO BID Qty: 60 2RF Rx Instructions: Patient takes PRN. sennosides [Senna Lax] 8.6 mg tablet 17.2 mg PO BEDTIME Qty: 90 2RF bisacodyl [Dulcolax (bisacodyl)] 5 mg tablet,delayed release (DR/EC) 10 mg PO BEDTIME Qty: 180 4RF prazosin 5 mg capsule 5 mg PO BEDTIME 30 Days Qty: 30 0RF folic acid 1 mg tablet 1 mg PO DAILY cyclobenzaprine 10 mg Tablet 10 mg PO TID Rx Instructions: Patient takes PRN. thiamine HCl (vitamin B1) 100 mg Tablet 100 mg PO DAILY magnesium citrate 125 mg Capsule 250 mg PO DAILY Rx Instructions: Two capsules daily. Vivitrol 380 mg Suspension,Extended Rel Recon 380 mg IM QMONTH celecoxib [Celebrex] 200 mg Capsule 200 mg PO BEDTIME topiramate 50 mg tablet 50 mg PO BEDTIME Qty: 30 0RF cholecalciferol (vitamin D3) [Vitamin D3] 50 mcg (2,000 unit) tablet 100 mcg PO DAILY Qty: 60 0RF cariprazine 3 mg capsule 3 mg PO DAILY Qty: 30 0RF propranolol 10 mg tablet See Rx Instructions .ROUTE .COMPLEX Qty: 120 0RF Rx Instructions: take 2 tablets po daily in AM, take one tablet po daily at noon, take one tablet po daily at 5pm gabapentin 300 mg capsule 300 mg PO TID PRN (Reason: Anxiety, pain) Qty: 90 0RF multivitamin Tablet 1 tab PO BID omeprazole 20 mg capsule,delayed release(DR/EC) 20 mg PO DAILY@0630 epinephrine 0.3 mg/0.3 mL auto-injector 1 mg IM DAILY PRN lisinopril 40 mg tablet 40 mg PO DAILY minoxidil 2.5 mg tablet 1.25 mg PO DAILY Rx Instructions: Take one half a tab daily. Print Language: Burkinan
[2024-06-16 00:22] VITALS: BP 111/74; PULSE 75
[2024-06-16 00:23] VITALS: BP 105/70; BP 107/74; PULSE 89; PULSE 94
[2024-06-16 00:52] VITALS: BP 105/70; PULSE 94; RESP 17; TEMP 36.4; O2SAT 97
== END 2024-06-16 00:52 | disposition home or self-care (01) ==
PROVIDERS: Emergency Provider Emergency Medicine; PCP General Practice
DX: D64.9 Anemia, unspecified (principal); R42 Dizziness and giddiness; I10 Essential (primary) hypertension; Z79.899 Other long term (current) drug therapy
CPT/HCPCS: 36415; 80053; 85025; 93005; 99283; 99285

== ENCOUNTER → 2024-06-15 22:05 | Outpatient (BNV) | payer OTHER, SELFPAY | PROVIDERS: Emergency Provider Emergency Medicine; PCP General Practice; Visit Provider Internal Medicine Cardiovascular Disease | DX: R42 Dizziness and giddiness (principal) | CPT/HCPCS: 93010 ==

== ENCOUNTER → 2024-07-07 12:45 | Outpatient (BNV) | payer OTHER, SELFPAY | PROVIDERS: Visit Provider Psychiatry & Neurology Psychiatry | DX: F31.32 Bipolar disorder, current episode depressed, moderate (principal); F43.11 Post-traumatic stress disorder, acute; D64.9 Anemia, unspecified | CPT/HCPCS: 90791 ==

== ENCOUNTER 2024-07-10 08:14 | Outpatient (REF) | payer OTHER, SELFPAY ==
--- OUTSIDE RECORDS SUMMARY | 2024-07-10 08:24 | XMS_ITS | Encounter Summary ---
Author Organization [facility] Address [address] [place] [address] Care Team Providers Care Dispatcher Automobile Rental Name Role Phone Darya Hamilton MD Primary Care Provider Ronak Beasley, Pcp Primary Care Provider Unavailabl e Darya Hamilton MD Primary Care Provider Lewis Birmingham MD Primary Care Provider Un available Dipesh Kern MD Primary Care Provide r Unavailable Becca Hinkle MD Primary Care Provider Unavailable Encounter Details Date Type Department Care Team Description 11/03/2011 Assistant Director Of Public Works Report Medical Records [address] [place] [address] Quang Hicks Social History Tobacco Use Types [...] on filedocumented in this encounter Care Teams Dispatcher Automobile Rental Relationship Specialty Start Date End Date Darya Hamilton MD PCP - General 06/30/10 03/15/15 [facility], Pcp PCP - General Internal Medicine 03/16/15 06/20/16 Darya Hamilton MD PCP - General Internal Medicine 06/21/16 11/12/16 Lewis Espino MD PCP - General Internal Medicine 11/13/16 Dipesh Kern MD PCP - General Internal Medicine 10/15/18 Becca Hinkle MD PCP - General Internal Medicine 03/23/21 documented as of this encounter
--- OUTSIDE RECORDS SUMMARY | 2024-07-10 08:24 | XMS_ITS | Encounter Summary ---
Author Organization [facility] Address [address] [place] [address] Care Team Providers Care Birth Attendant Name Role Phone Darya Hamilton MD Primary [...] Care Team Description 08/17/2011 Telephone Adult Medicine [address] [address] Darya Hamilton MD APPOINTMENT Social History Tobacco [...] on filedocumented in this encounter Care Teams Birth Attendant Relationship Specialty Start Date End Date Darya Hamilton MD PCP - General 06/30/10 03/15/15 [facility], Pcp PCP - General Internal Medicine 03/16/15 06/20/16 Darya Hamilton MD PCP - General Internal Medicine 06/21/16 11/12/16 Lewis Espino MD PCP - General Internal Medicine 11/13/16 Dipesh Kern MD PCP - General Internal [facility] - [facility] 03/23[facility]21 documented as of this encounter
--- OUTSIDE RECORDS SUMMARY | 2024-07-10 08:24 | XMS_ITS | Encounter Summary ---
Author Organization [facility] Address [address] [place] [address] Care Team Providers Care Manager Of Network Name Role Phone Darya Hamilton MD Primary Care Provider Ronak Beasley, Pcp Primary Care Provider Unavailabl e Darya Hamilton MD Primary Care Provider Lewis Birmingham MD Primary Care Provider Un available Dipesh Kern MD Primary Care Provide r Unavailable Becca Hinkle MD Primary Care Provider Unavailable Encounter Details Date Type Department Care Team Description 10/26/2010 [facility] Medical Records [address] [place] [address] Ethan Tapia MD Social History Tobacco Use [...] filedocumented in this encounter Care Teams Manager Of Network Relationship Specialty Start Date End Date Darya Hamilton MD PCP - General 06/30/10 03/15/15 [facility], Pcp PCP - General Internal Medicine 03/16/15 06/20/16 Darya Hamilton MD PCP - General Internal Medicine 06/21/16 11/12/16 Lewis Espino MD PCP - General Internal Medicine 11/13/16 Dipesh Kern MD PCP - General Internal Medicine 10/15/18 Huddy-Becca Callaway MD PCP - General Internal Medicine 03/23/21 documented as of this encounter
--- OUTSIDE RECORDS SUMMARY | 2024-07-10 08:24 | XMS_ITS | Encounter Summary ---
Author Organization [facility] Address [address] [place] [address] Care Team Providers Care Ekg Monitor Name Role Phone Darya Hamilton MD Primary Care Provider Ronak Beasley, Pcp Primary Care Provider Unavailabl e Darya Hamilton MD Primary Care Provider Maryva Lewis Galvan MD Primary Care Provider Un available Dipesh Kern MD Primary Care Provide r Unavailable Becca Hinkle MD Primary Care Provider Unavailable Encounter Details Date Type Department Care Team Description 05/20/2013 Environmental Engineering Professor Report Medical Records [address] [place] [id number] Karlie Concepcion MD Social History Tobacco Use [...] on filedocumented in this encounter Care Teams Ekg Monitor Relationship Specialty Start Date End Date Darya Hamilton MD PCP - General 06/30/10 03/15/15 [facility], Pcp PCP - General Internal Medicine 03/16/15 06/20/16 Darya Hamilton MD PCP - General Internal Medicine 06/21/16 11/12/16 Lewis Espino MD PCP - General Internal Medicine 11/13/16 Dipesh Kern MD PCP - General Internal Medicine 10/15/18 Becca Hinkle MD PCP - General Internal Medicine 03/23/21 documented as of this encounter
--- OUTSIDE RECORDS SUMMARY | 2024-07-10 08:24 | XMS_ITS | Encounter Summary ---
Author Organization [facility] Address [address] [place] [address] Care Team Providers Care Skip Tracer Name Role Phone Darya Hamilton MD Primary Care Provider Ronak Beasley, Pcp Primary Care Provider Unavailabl e Darya Hamilton MD Primary Care Provider Maryva Lewis Galvan MD Primary Care Provider Un available Dipesh Kern MD Primary Care Provide r Unavailable Becca Hinkle MD Primary Care Provider Unavailable Encounter Details Date Type Department Care Team Description 05/21/2011 Eye Floor Layer Helper Report Medical Records [address] [place] [id number] Radha Olvera Social History Tobacco Use Types [...] on filedocumented in this encounter Care Teams Skip Tracer Relationship Specialty Start Date End Date Darya Hamilton MD PCP - General 06/30/10 03/15/15 [facility], Pcp PCP - General Internal Medicine 03/16/15 06/20/16 Darya Hamilton MD PCP - General Internal Medicine 06/21/16 11/12/16 Lewis Espino MD PCP - General Internal Medicine 11/13/16 Dipesh Kern MD PCP - General Internal Medicine 10/15/18 Becca Hinkle MD PCP - General Internal Medicine 03/23/21 documented as of this encounter
--- OUTSIDE RECORDS SUMMARY | 2024-07-10 08:25 | XMS_ITS | Encounter Summary ---
Author Organization [employer] Address [address] [place] [address] 7 [place] [address] Care Team Providers Care Wood Tool Maker Name Role Phone Maddie Kim MD Primary Care Provider [phone] Reason for Visit * Reason Onset Date Comments Call Back Request 07/26/2023 Encounter Details Date Type Department Care Team ([facility] Contact Info) Description 07/26/2023 Telephone [facility] MEDICINE [address] [place], [place] [phone] Maddie Kim MD [address] [place], [place] [phone] Call Back Request Social History Tobacco Use Types Packs/Day Years Used Date Smoking Tobacco: Every Day Cigarettes 0.5 25.4 Started: 02/19/1999 Passive Smoke Exposure: Past Smokeless [...] is your housing situation today? I have aslome benjamin 07/06/[address] you [...] 07/27/2023 9:31 AM EDT Tc returned to [place], questioning pt.'s risperidone inj rx on med list they received. Looking back in chart, this was discontinued after inpatient hosp in 2020 due to noncompliance with injections. This was the last time it was prescribed. [facility] is requesting this is taken off our med list for accuracy, thank you! * Telephone Encounter - Zach Carlson - 07/26/2023 4:12 PM EDT Tc from [place] with Willie Gage requesting a call back for a med reconciliation. Please contact Georgie at [phone]. documented in this encounter Plan of Treatment Not on file documented as of this encounter Visit Diagnoses Not on filedocumented in this encounter Additional Health Concerns Assessment Noted Time PHQ-9 Depression Total Score: 3 06/15/19 24 11:48 AM EDT documented as of this encounter Care Teams Wood Tool Maker Relationship Specialty Start Date End Date Maddie Kim MD [address] [place] [id number] PCP - General Family Medicine 07/12/20 Willie Gage 01/17/22 documented as of this encounter
--- OUTSIDE RECORDS SUMMARY | 2024-07-10 08:25 | XMS_ITS | Encounter Summary ---
Author Organization [facility] Address [address] [place] [address] Care Team Providers Care Nut Sorter Operator Name Role Phone Darya Hamilton MD Primary Care Provider Ronak neumann [facility], Pcp Primary Care Provider Unavailabl e Darya Hamilton MD Primary Care Provider Lewis Birmingham MD Primary Care Provider Un available Dipesh Kern MD Primary Care Provide r [facility] Becca Hinkle MD Primary Care Provider Unavailable Reason for Visit * Reason Onset Date Comments refill request 03/18/2012 Encounter Details Date Type Department Care Team Description 03/18/2012 Refill Physiatry - [address] [address] Lucia Contreras PA-C refill request Social History [...] like script to be: PLACED IN PATIENT GARBAGE DEPOT WORKER Is this a mail order prescription request ? NO Indicate how soon the patient needs the script: OK FOR NEXT DAY Patients current insurance carrier is: [place] Product Type: [place] [id number] documented in this encounter Plan of Treatment Not on file documented as of this encounter Visit Diagnoses Not on filedocumented in this encounter Care Teams Nut Sorter Operator Relationship Specialty Start Date End Date Darya Hamilton MD PCP - General 06/30/10 03/15/15 [facility], Pcp PCP - General Internal Medicine 03/16/15 06/20/16 Darya Hamilton MD PCP - General Internal Medicine 06/21/16 11/12/16 Lewis Espino MD PCP - General Internal Medicine 11/13/16 Dipesh Kern MD PCP - General Internal Medicine 10/15/18 Becca Hinkle MD PCP - General Internal Medicine 03/23/21 documented as of this encounter
--- OUTSIDE RECORDS SUMMARY | 2024-07-10 08:25 | XMS_ITS | Encounter Summary ---
Author Organization [facility] Address [address] [place] [address] Care Team Providers Care Machine Installer Name Role Phone Darya Hamilton MD Primary Care Provider Ronak Beasley, Pcp Primary Care Provider Unavailabl e Darya Hamilton MD Primary Care Provider Maryva Lewis Galvan MD Primary Care Provider Un available Dipesh Kern MD Primary Care Provide r Unavailable Becca Hinkle MD Primary Care Provider Unavailable Encounter Details Date Type Department Care Team Description 05/21/2014 Flight Steward Report Medical Records [address] [place] [address] Tristan Gracia Social History Tobacco Use Types Packs/Day Years [...] filedocumented in this encounter Care Teams Machine Installer Relationship Specialty Start Date End Date Darya [...]
--- OUTSIDE RECORDS SUMMARY | 2024-07-10 08:25 | XMS_ITS | Encounter Summary ---
Author Organization [facility] [employer] Address [address] [place] [address] [address] [place] [address] Care Team Providers Care Molder Setter Name Role Phone Maddie Kim MD Primary Care Provider [phone] Encounter Details Date Type Department Care Team ([facility] st Contact Info) Description 02/22/2024 Orders Only [facility] MEDICINE [address] [place], [place] [phone] Maddie Kim MD [address] [place], [place] [phone] Social History Tobacco Use Types Packs/Day Years Used Date Smoking Tobacco: Former Cigarettes 0.5 25.4 S tarted: 02/19/1999 Passive Smoke Exposure: Past [...] documented as of this encounter Care Teams Molder Setter Relationship Specialty Start Date End Date Maddie Kim MD [address] [place] [address] PCP - General Family Medicine 07/12/20 Willie Gage 01/17/22 documented as of this encounter
--- OUTSIDE RECORDS SUMMARY | 2024-07-10 08:25 | XMS_ITS | Encounter Summary ---
Author Organization [employer] Address [address] [place] [address] [address] [place] [address] Care Team Providers Care Epidemiology Internship Name Role Phone Maddie Kim MD Primary Care Provider [phone] Encounter Details Date Type Department Care Team ([facility] st Contact Info) Description 06/13/[address] [facility] MEDICINE [address] [place], [place] [phone] Maddie Kim MD [address] [place], [place] [phone] Social History Tobacco Use Types Packs/Day Years [...] AM EDT documented as of this encounter Functional Status * Over the past 2 weeks, how often have you been bothered by any of the following problems? Question Answer Date of Assessment Author Patient Health Questionnaire -2 Score 0 06/15/2023 11:48 AM EDT Ashlyn Meza MA * If you checked off any problems on this questionnaire so far, Question Answer Date of Assessment Author How difficult have these problems made it for you to do your work, take care of things at home, or get along with other people? Not difficult at all 06/15/2023 11:48 AM ELIOT Katelynn Meza MA * Over the past 2 weeks, how often have you been bothered by any of the following problems? Question Answer Date of Assessment Author Little interest or pleasure in doing things Not at all 06/15/2023 11:48 AM Ruth Riojas MA Feeling down, depressed, or hopeless Not at all 06/15/2023 11:48 AM Ashlyn Riojas MA Trouble falling or staying asleep, or sleeping too much Nearly every day 06/15/2023 11:48 AM Ashlyn Riojas [place] Feeling tired or having little energy Not at all 06/15/2023 11:48 AM Ashlyn Riojas [place] Poor appetite or overeating Not at all 06/15/2023 11:48 AM Ashlyn Riojas MA Feeling bad about yourself - or that you are a failure or have let yourself or your family down Not at all 06/15/2023 11:48 AM ELIOT Ashlyn Meza MA Trouble concentrating on things, such as reading the newspaper or watching television Not at all 06/15/2023 11:48 AM ELIOT Ashlyn Meza MA Moving or speaking so slowly that other people could have noticed? Or the opposite - being so fidgety or restless that you have been moving around a lot more than usual. Not at all 06/15/2023 11:48 AM Ashlyn Riojas MA Thoughts that you would be better off or hurting yourself in some way Not at all 06/15/2023 11:48 AM Katelynn Riojas MA Patient Health Questionnaire-9 Score 3 06/15/2023 11:48 AM EDT Magnolia Meza MA documented as of this encounter Plan of Treatment Not on file documented as of this encounter Visit Diagnoses Not on filedocumented in this encounter Additional Health Concerns Assessment Noted Time PHQ-9 Depression Total Score: 0 05/30/19 23 3:26 PM EDT documented as of this encounter Care Teams Epidemiology Internship Relationship Specialty Start Date End Date Maddie Kim MD [address] [place] [address] PCP - General Family Medicine 07/12/20 Willie Gage 01/17/22 documented as of this encounter
--- OUTSIDE RECORDS SUMMARY | 2024-07-10 08:25 | XMS_ITS | Encounter Summary ---
Author Organization [employer] Address [address] [place] [address] 7[address] [place] [address] Care Team Providers Care Gre Instructor Name Role Phone Maddie Kim MD Primary Care Provider [phone] Encounter Details Date Type Department Care Team ([facility] st Contact Info) Description 05/15/2023 Orders Only [facility] MEDICINE [address] [place], [place] [phone] Maddie Kim MD [address] [place], [place] [phone] Social History Tobacco Use Types Packs/Day Years Used Date Smoking Tobacco: Former Cigarettes 0.3 25.4 S tarted: 02/19/1999 Passive Smoke Exposure: [...] documented as of this encounter Care Teams Gre Instructor Relationship Specialty Start Date End Date Maddie Kim MD [address] [place] [address] PCP - General Family Medicine 07/12/20 Willie Gage 01/17/22 documented as of this encounter
--- OUTSIDE RECORDS SUMMARY | 2024-07-10 08:25 | XMS_ITS | Encounter Summary ---
Author Organization [facility] Address [address] [place] [address] Care Team Providers Care Presiding Steward Name Role Phone Darya Hamilton MD Primary Care Provider Ronak Beasley, Pcp Primary Care Provider Unavailabl e Darya Hamilton MD Primary Care Provider Lewis Birmingham MD Primary Care Provider Un available Dipesh Kern MD Primary Care Provide r Unavailable Becca Hinkle MD Primary Care Provider Unavailable Encounter Details Date Type Department Care Team Description 12/04/2013 [facility] Medical Records [address] [place] [address] Abstract, Provider Social History Tobacco Use Types [...] on filedocumented in this encounter Care Teams Presiding Steward Relationship Specialty Start Date End Date Darya Hamilton MD PCP - General 06/30/10 03/15/15 [facility], Pcp PCP - General Internal Medicine 03/16/15 06/20/16 Darya Hamilton MD PCP - General Internal Medicine 06/21/16 11/12/16 Lewis Espino MD PCP - General Internal Medicine 11/13/16 Dipesh Kern MD PCP - General Internal Medicine 10/15/18 [place]ueroa-Becca Callaway MD PCP - General Internal Medicine 03/23/21 documented as of this encounter
--- OUTSIDE RECORDS SUMMARY | 2024-07-10 08:25 | XMS_ITS | Encounter Summary ---
Author Organization [employer] Address [address] [place] [address] [address] [place] [address] Care Team Providers Care Verifier Name Role Phone Maddie Kim MD Primary Care Provider [phone] Encounter Details Date Type Department Care Team ([facility] st Contact Info) Description 07/29/2023 Orders Only [facility] MEDICINE [address] [place], [place] [phone] Maddie Kim MD [address] [place], [place] [phone] Social History Tobacco Use Types Packs/Day Years [...] documented as of this encounter Care Teams Verifier Relationship Specialty Start Date End Date Maddie Kim MD [address] [place] [address] PCP - General Family Medicine 07/12/20 Willie Gage 01/17/22 documented as of this encounter
--- OUTSIDE RECORDS SUMMARY | 2024-07-10 08:25 | XMS_ITS | Clinical Summary ---
Author Organization [employer] Address [address] [place] [address] 7 [place] [address] Care Team Providers Care Representative Government Relations Name Role Phone Maddie Kim MD Primary Care Provider [phone] Allergies Active Allergy Reactions Criticality Noted Date [...] mouth 2 times daily. 10/20/19 23 Active Vivitrol injection 06/13/19 24 Active Emollient [...] mouth Once per day. 11/06/19 24 Active omeprazole (PriLOSEC) [address] capsule [...] 8 ounces of water or juice. Active cyclobenzaprin e (Flexeril) 5 MG tablet [...] (Inderal) 10 MG tablet 04/11/19 25 Active cholecalcifero l (Vitamin D-3) 50 MCG (1999 UT) capsule Take 1 capsule (50 mcg) by mouth Once per day. 90 capsule 3 06/14/19 25 Active lisinopril (Zestril) 30 MG tablet Take 1 tablet (30 mg) by mouth Once per day. 90 tablet 3 06/17/19 25 026 Active Blood Pressure kit Use as directed to check blood pressure 1 kit 06/17/19 25 Active Tirzepatide-We ight Management (Zepbound) 5 MG/0.5ML solution auto-injector Inject 0.5 mL (5 mg) as directed 1 (one) time per week. INJECT ONE PEN (=5 MG) SUBCUTANEOUSLY ONCE A WEEK 2 mL 3 06/26/19 25 Active lisinopril 40 MG tablet Take 1 tablet (40 mg) by mouth Once per day. 90 tablet 3 01/02/20 24 025 Discontin ued(Dose adjustmen t) Tirzepatide-We ight Management (Zepbound) 2.5 MG/0.5ML solution auto-injector Inject 0.5 mL (2.5 mg) as directed 1 (one) time per week. 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 I think discuss portion sizes with interior decorator painting Assessment & Plan (01/29/2022 10:40 AM EST): [...] Assessment & Plan (05/17/2023 3:51 PM EDT): [facility] paperwork/[place] paperwork signed She has support system in place for during this time, re-iterated that she can reach us through [employer] if she needs anything Assessment & Plan [...] Encounters Date Type Department Care Team Description 07/09/2024 Telephone [facility] [address] [facility] [place] [address] Maddie Kim MD Nurse Triage 07/09/2024 Telephone [facility] [address] [facility] [place] [address] Maddie Kim MD Medication Question 07/07/2024 Orders Only [facility] [place] [address] Maddie Kim MD Benign hypertension (Primary Dx) 07/01/2024 11:30 AM EDT Telemedicine [facility] [address] [facility] [place] [address] Maddie Kim MD Class 3 severe obesity with serious comorbidity and body mass index (BMI) of 40.0 to 44.9 in adult, unspecified obesity type (Primary Dx); S/P total knee arthroplasty, left 06/25/2024 Refill [facility] [address] [facility] [place] [address] Maddie Kim MD 06/17/2024 Telephone [facility] [address] [facility] [place] [address] Maddie Kim MD Nurse Triage 06/16/2024 Refill [facility] [place] [address] Maddie Kim MD 06/15/2024 Orders Only GENERIC EXTERNAL DATA DEPARTMENT Provider, Generic External Data 06/13/2024 Orders Only [facility] [address] [place] [address] Maddie Kim MD 06/13/2024 Telephone [facility] [address] [place] [address] Maddie Kim MD New Med Request 05/30/2024 Refill [facility] [address] [place] [address] Maddie Kim MD 05/29/2024 Telephone [facility] [address] [place] [address] Maddie Kim MD verbal order needed 05/26/2024 Telephone [facility] [address] [place] [address] Maddie Kim MD Medication Question 05/19/[address] [address] Maddie Kim MD Prior Authorization 05/14/[address] [address] Maddie Kim MD Prior Authorization ([facility] Request: Zepbound) 05/14/[address] [address] Maddie Kim MD Durable Medical Equipment (DME: [facility]: Walker ) 05/06/2024 Orders Only [address] [address] Maddie Kim MD Primary hypertension (Primary Dx); Tachycardia; Other chest pain 05/05/[address] [address] Maddie Kim MD Referral 04/28/[address] [address] Maddie Kim MD Durable Medical Equipment ([facility] DME Request: Handheld Shower, Shower Chair, Shower Mat) 04/14/2024 Orders Only [address] [address] Maddie Kim MD from Last 3 Months Immunizations Immunization Administration Dates Next Due Influenza Injectable Quadriv [...] drink = 0.6 oz pur e alcohol) Alcohol Answer Date Recorded How often do you have a drink containing alcohol ? 0 07/04/2024 How many drinks containing a lcohol do you have on a typical day when you are drinking? 0 07/04/2024 How often do you have six or more drinks on one occasion? 0 07/04/2024 Depression Answer Date Recorded Patient Health Questionnaire-9 Score 9 07/04/2024 Patient Health Questionnaire-9 Score 9 07/04/2024 Last PHQ-9: Questionnaire Data Not on file 0 07/04/2024 Housing Stability Answer Date Recorded What is [...] Answer Date Recorded Patient Health Questionnaire-2 Score 4 07/04/2024 Comments No Sex and Gender Information Value [...] 04/02/2024 3:33 PM EST Plan of Treatment Health Maintenance Due Date Last Done Comments CT Colonography 1975 Colonoscopy 1975 Colorectal Cancer Screening 1975 FIT DNA/Cologuard 1975 FIT 1975 FOBT 1975 HIV Screening 1975 Sigmoidoscopy 1975 Disability Screening 1975 Hepatitis C Screening 10/03/1995 Hepatitis B Vaccines (1 of 3 - 19+ 3-dose series) 1996 DTaP/Tdap/Td Vaccines (3 - Td or Tdap) 09/19/2020 09/19/2010, 10/12/2009 COVID-19 Vaccine ( season) 2023 12/26/2021, 08/26/2020, 07/29/2020 SDOH Screening 07/05/2024 07/06/2023 Family Planning (PISQ) 04/02/2025 04/02/2024 Mammogram 05/03/2025 05/04/2023, 03/23, 02/28/2022 Tobacco Screening 07/01/2025 07/01/2024 Alcohol/Substance Use Screening 07/04/2025 07/04/2024 Depression Screening 07/04/2025 07/04/2024, 07/05/19 25 HPV/Cotest 12/20/2025 12/20/2020, 12/20/2020 Cervical Cancer Screening [...] patient's age to complete this topic Meningococcal B Vaccine Aged Out No l onger eligible based on patient's age to complete [...] Procedure Name Priority Date/Time Associated Diagnosis Comments COMPREHENSIVE METABOLIC PANEL Routine 06/15/2024 10:12 PM EDT CBC WITH AUTO DIFFERENTIAL Routine 06/15/2024 10:12 PM EDT IMMUNOFIXATION, SERUM Routine 04/14/2024 12:47 PM EST [...] RANDOM URINE Routine 04/14/2024 12:45 PM EST PAP SMEAR Routine 01/22/2024 8:03 AM EST LIPID PANEL, STANDARD Routine 09/08/2023 8:43 AM EDT Class 3 severe obesity with serious comorbidity and body mass index (BMI) of 40.0 to 44.9 in adult, unspecified obesity type (CMS/[facility]) BI MAMMOGRAM SCREENING TOMOSYNTHESIS BILATERAL Routine 05/04/2023 4:02 PM EDT HPV GENOTYPES 16,18/45 Routine 12:00 AM EDT from Last 3 Months or Most Recently Relevant to Health Maintenance Results * (ABNORMAL) CBC auto differential (06/15/2024 10:12 PM EDT) Only the most recent of2 resultswithin the time period is included. White Blood Count 6.4 4.8 - 10.8 X10*3/uL [facility] Red Blood Count 3.79(L) 4.20 - 5.50 X10*6/uL [facility] Hemoglobin 9.1(L) 12.0 - 16.0 g/dl [facility] Hematocrit 29.7(L) 37.0 - 47.0 % [facility] Mean Corpuscular Volume 78.4(L) 80.0 - 98.0 fL [facility] Mean Corpuscular Hemoglobin 24.0(L) 27.0 - 33.0 pg [facility] Mean Corpuscular HGB Conc 30.6(L) 31.0 - 35.0 g/dl [facility] Red Cell Distribution Width 14.7 11.0 - 16.0 % [facility] Platelet Count 432(H) 160 - 400 X10*3/uL [facility] Mean Platelet Volume 9.5 9.4 - 12.3 fL [facility] Neutrophils Percent Auto 59.2 45 - 73 % [facility] Imm Gran Pct Auto 0.2 0.0 - 0.4 % [facility] Lymphocytes Percent Auto 30.1 20 - 40 % [facility] Monocytes Percent Auto 7.8 2 - 11 % [facility] Eosinophils Percent Auto 2.2 0 - 4 % [facility] Basophils Percent Auto 0.5 0 - 2 % [facility] NRBC Pct Auto 0.0 0.0 - 0.2 /100WBC [facility] Neutrophils Absolute Auto 3.8 2.0 - 8.3 x10*3/uL [facility] Imm Gran Abs Auto 0.01 0.00 - 0.03 X10*3/uL [facility] Lymphocytes Absolute Auto 1.9 1.2 - 4.9 X10*3/uL [facility] Monocytes Absolute Auto 0.5 0.1 - 1.2 X10*3/uL [facility] Eosinophils Absolute Auto 0.1 0.0 - 0.4 X10*3/uL [facility] Basophils Absolute Auto 0.0 0.0 - 0.2 X10*3/uL [facility] NRBC Abs Auto 0.000 0.0 - 0.012 X10*3/uL [facility] 06/15/2024 10:1 2 PM EDT 06/15/2024 10:16 PM EDT us Generic External Data Provider LAB BLOOD ORDERAB LES Final Result [facility] [address], [place] [phone] * (ABNORMAL) Comprehensive Metabolic Panel (06/15/2024 10:12 PM EDT) Sodium 135 135 - 145 mmol/L [facility] Potassium 4.3 3.3 - 5.1 mmol/L [facility] Comment:Slight Hemolysis.Int erpret result with caution. Chloride 102 96 - 108 mmol/L [facility] Carbon Dioxide 24 22 - 29 mmol/L [facility] Anion Gap 13 12 - 20 [facility] Urea Nitrogen (BUN) 8(L) 9 - 16 mg/dL [facility] Creatinine, Serum 0.77 0.5 - 1.4 mg/dL [facility] Creatinine Clr Calc Pharmacy 98.9 [facility] Comment:Provided height and weight: 160.02 cm,92.986 kg.eGFR (calculated from the MDRD study equation) and eCrCl(calculated from the Cockcroft-Gault equation) are based ondifferent parameters and may not yield comparable results.If eCrCl result is absurd, please check patient'sheight/weight. Estimated Glomerular Filt Rate >60 [facility] Comment:Chronic Kidney Disea se: Estimated GFR < 60 mL/min/1.56b0Cwhjsc Kidney Disease: Estimated GFR < 15 mL/min/1.73m2 Glucose 90 60 - 115 mg/dL [facility] Calcium 9.6 8.4 - 10.2 mg/dL [facility] Bilirubin, Total 0.6 0.0 - 1.0 mg/dL [facility] Aspartate Amino Transferase 23 5 - 31 U/L [facility] Comment:Slight Hemolysis.Int erpret result with caution. Alanine Aminotransferase 13 0 - 31 U/L [facility] Total Protein 7.9 6.5 - 8.0 g/dL [facility] Albumin Level 4.2 3.5 - 5.0 g/dL [facility] Alkaline Phosphatase 95 39 - 117 U/L [facility] 06/15/2024 10:1 2 PM EDT 06/15/2024 10:16 PM EDT us Generic External Data Provider LAB BLOOD ORDERAB LES Final Result [facility] [address] [place] [address] [phone] * Cortisol Random (04/14/2024 12:47 PM EST) Cortisol Random 5.7 ug/dL [facility] Comment:Reference Range*: Be fore 10 am 6.2-19.4 ug/dL After 5 pm 2.3-11.9 ug/dL*Please interpret above results accordingly.This test was performed using the [employer] chemiluminescentmethod. Values obtained from different assay methods cannotbe used interchangeably.Patients receiving fludrocortisone, prednisolone orprednisone may show artificially elevated cortisol valuesdue to cross-reactivity. 04/14/2024 12:4 7 PM EST 04/14/2024 12:47 PM EST us Generic External Data Provider LAB BLOOD ORDERAB LES Final Result Performing Organization Address [facility] Co de Phone Number [facility] [address] [place] [phone] * Iron And Total Iron Binding Capacity (04/14/2024 12:47 PM EST) [facility] Iron 77 30 - 160 mcg/dL [facility] Total Iron Binding Capacity 339 228 - 428 mcg/dL [facility] Percent Iron Saturation 23 15 - 50 % [facility] Unsaturated Iron Binding 262 ug/dL [facility] 04/14/2024 12:4 7 PM EST 04/14/2024 12:47 PM EST Gil Brewer MD LAB BLOOD ORDERABLES Final Resul t Performing Organization Address [facility] Co de Phone Number [facility] [address] [place] [phone] * (ABNORMAL) Immunofixation, Serum (04/14/2024 12:47 PM EST) [facility] IMMUNOGLOBULIN G 1545 600 - 1640 mg/dL [facility] IMMUNOGLOBULIN A 197 47 - 310 mg/dL [facility] Immunoglobulin M 46(A) 50 - 300 mg/dL [facility] Comment:THIS TEST WAS PERFOR MED AT:[facility] [place] [phone] PARKINSON MD Immunofixation Result SEE NOTE [facility] Comment:Normal pattern. No m onoclonal proteins detected. 04/14/2024 12:4 7 PM EST 04/14/2024 12:47 PM EST us Generic External Data Provider LAB BLOOD ORDERAB LES Final Result Performing Organization Address [facility] de Phone Number [facility] [address] [place] [phone] * Ferritin (04/14/2024 12:47 PM EST) Pathologist [facility] Ferritin 61 10 - 250 ng/mL [facility] 04/14/2024 12:4 7 PM EST 04/14/2024 12:47 PM EST Gil Brewer MD LAB BLOOD ORDERABLES Final Resul t Performing Organization Address [facility] de Phone Number [facility] [address] [place] [phone] * (ABNORMAL) Basic Metabolic Panel (04/14/2024 12:47 PM EST) [facility] Sodium 139 135 - 145 mmol/L [facility] Potassium 4.3 3.3 - 5.1 mmol/L [facility] Chloride 104 96 - 108 mmol/L [facility] Carbon Dioxide 27 22 - 29 mmol/L [facility] Anion Gap 12 12 - 20 [facility] Urea Nitrogen (BUN) 7(L) 9 - 16 mg/dL [facility] Creatinine, Serum 0.69 0.5 - 1.4 mg/dL [facility] Estimated Glomerular Filt Rate >60 [facility] Comment:Chronic Kidney Disea se: Estimated GFR < 60 mL/min/1.51p0Aedefg Kidney Disease: Estimated GFR < 15 mL/min/1.73m2 Glucose 84 60 - 115 mg/dL [facility] Calcium 9.5 8.4 - 10.2 mg/dL [facility] 04/14/2024 12:4 7 PM EST 04/14/2024 12:47 PM EST Gil Brewer MD LAB BLOOD ORDERABLES Final Resul t Performing Organization Address [facility] de Phone Number [facility] [address] [place] [phone] * Sodium Without creatinine, Random Urine (04/14/2024 12:45 PM EST) Sodium Urine Random 47.0 mmol/L [facility] 04/14/2024 12:4 5 PM EST 04/14/2024 1:55 PM EST Generic External Data Provider LAB BLOOD ORDERAB LES Final Result Performing Organization Address [facility] Phone Number [facility] [address] [place] [phone] * (ABNORMAL) Osmolality, Urine (04/14/2024 12:45 PM EST) OSMOLALITY URINE 212(L) 373 - 1,093 mosm/kg [facility] 04/14/2024 12:4 5 PM EST 04/14/2024 1:55 PM EST Generic External Data Provider LAB URINE ORDERAB LES Final Result Performing Organization Address [facility] de Phone Number [facility] [address] [place] [phone] * Pap Smear (01/22/2024 8:03 AM EST) 01/22/2024 8:03 AM EST 01/23/2024 11:00 AM EST Narrative [facility] - 01/25/2024 12:58 PM EST ----- ------- Name: Atiya Esparza ?Age/Sex: 48/F ? : 1975 Unit#: [id number] ?? Attend Dr: John Schmidt MD ?Re01/22/24 ?Status: DEP REF ? Location: HO.LNP ?Disch: ? ----- ------- SPEC : [id number] ?RECD: 01/23/24 ? STATUS: ??SOUT ? REQ NUM: [id number] ? MAMADOU: 01/22/24 ? SUBM DR: John [...] Copies To: ?? Maddie Kim ?? [address] ?? [place] [address] ?? [phone] ?? John Schmidt MD ?? [facility] ?? [address] ?? [place] [address] ?? [phone] ----- ------- Signed (signature on file) YASSINE Garcia (ASCP) 01/25/24 [id number] ? ----- ------- ? END OF REPORT ? us Generic External Data Provider LAB CYTOLOGY ORDE RABLES Final Result Performing Organization Address [facility] Co de Phone Number [facility] [address] [place] [address] [phone] * Lipid Panel, Standard (09/08/2023 8:43 AM EDT) Triglycerides 57 <150 mg/dL [facility] Comment:Desirable Triglyceri de: less than [...] 190 mg/dL HDL Cholesterol 60 >40 mg/dL [facility] Comment:Desirable HDL: great er than 40 mg/dL Note: This HDL assay may give artificially low results in patients with liver disease. Blood Venous blood specimen / Unknown 09/08/2023 8:43 AM EDT 09/08/2023 11:09 AM EDT us Maddie Kim MD LAB BLOOD ORDERABLES Final Res ult Performing Organization Address [facility]/ZIP Co de Phone Number [facility] [address] [place] [phone] * BI Mammogram Screening Tomosynthesis Bilateral (05/04/2023 4:02 PM EDT) Anatomical Region Laterality Modality Breast Bilateral Mammography 05/04/2023 4:02 PM EDT Narrative 05/26/2023 3:06 PM EDT ? [facility] ? [address] ?[place] [address] ? Mammography Report ? Signed ? Patient: [place],Atiya ?MR#: [id number] ? : 1975 ?Acct:[id number] ? Age/Sex: 47 / F ?ADM Date: 05/04/23 ? Loc: HO.MAMMO ? Attending Dr: Maddie Kim MD ? Ordering Physician: Maddie Kim ?Results: 1Negative ? Date of Service: 05/04/23 ?Follow Up: 1 Year From Orig ?? inal Mammogram ? Procedure(s): MM tomosynthesis screening BI ?? Accession Number(s): [id number] ? cc: Maddie Kim ? EXAMINATION: ?? [...] 1503 ? DD/ 1602 ? TD/TT: ? Cushion Filler: ? Procedure Note John Paul, Zoya - 05/26/2023 [place] [facility] [address] [place] [address] Mammography Report Signed Patient: Zain Esparza#: [id number] : 1975Acct:[id number] Age/Sex: 47 / FADM Date: 05/04/23 Loc: [facility] Attending Dr: Maddie Kim MD Ordering Physician: Jaja Kimults: 1Negative Date of Service: 05/04/23Follow Up: 1 Year From Orig inal Mammogram Procedure(s): MM tomosynthesis screening BI Accession Number(s): [id number] cc: Maddie Kim EXAMINATION: MM SCREENING DIGITAL [...] in OV> 05/26/23 1503 DD/ 1602 TD/TT: Cushion Filler: Maddie Kim MD IMG BI PROCEDURES Final Result * HPV GENOTYPES 16,18/45 (12/20/2020 12:00 AM EDT) HPV 16 RNA NOT DETECTED NOT DETECTED [facility] HPV 18/45 RNA NOT DETECTED NOT DETECTED [facility] Comment: Methodology: Silk Screen Printer Helper Mediated Amplification The analytical performance characteristics of this assay have been determined by [employer]. The modifications have not been cleared or approved by the FDA. This assay has been validated pursuant to the CLIA regulations and is used for clinical purposes. 12/20/2020 Maddie Kim MD LAB CYTOLOGY ORDERABLES Final Result [facility] [address] from Last 3 Months or Most Recently Relevant to Health Maintenance Insurance [employer] < [address] [place] [id number] Care Teams Representative Government Relations Relationship Specialty Start Date End Date Maddie Kim MD [address] [place] [phone] PCP - General Family Medicine 07/12/20 Willie Gage 01/17/22
--- OUTSIDE RECORDS SUMMARY | 2024-07-10 08:25 | XMS_ITS | Encounter Summary ---
Author Organization [facility] Address [address] [place] [address] Care Team Providers Care First Grade Teacher Name Role Phone Darya Hamilton MD Primary Care Provider Unanile neumann [facility], Pcp Primary Care Provider Unavailabl e Darya Hamilton MD Primary Care Provider Unava Lewis Galvan MD Primary Care Provider Un available Dipesh Kern MD Primary Care Provide r Unavailable Becca Hinkle MD Primary Care Provider Unavailable Reason for Visit * Reason Onset Date Comments refill request 12/26/2013 Encounter Details Date Type Department Care Team Description 12/26/2013 Refill Adult Medicine [address] [address] Darya Hamilton MD refill request Social History [...] NO Patients current insurance carrier is: Payor: [facility] INS[employer]ANCE / Plan: [facility] INSURANCE / Product Type: OTHER documented in this encounter Plan of Treatment Not on file documented as of this encounter Visit Diagnoses Not on filedocumented in this encounter Care Teams First Grade Teacher Relationship Specialty Start Date End Date Darya Hamilton MD PCP - General 06/30/10 03/15/15 [facility], Pcp PCP - General Internal Medicine 03/16/15 06/20/16 Darya Hamilton MD PCP - General Internal Medicine 06/21/16 11/12/16 Lewis Espino MD PCP - General Internal Medicine 11/13/16 Dipesh Kern MD PCP - General Internal Medicine 10/15/18 Figueroa-Becca Callaway MD PCP - General Internal Medicine 03/23/21 documented as of this encounter
--- OUTSIDE RECORDS SUMMARY | 2024-07-10 08:25 | XMS_ITS | Data Portability ---
Author Organization [employer] [place] [facility] Address [address] [place] [address] Care Team Providers Care Contract Negotiation Manager Name Role Phone HIM CCA OTHER [facility] Primary Care Provider Assessment Encounter Date Assessment Date Assessment LastModified by Organization Details LastModified Time 04/18/2024 04/18/2024 I provided real -time medical direction via phone for this encounter and was available for additional phone-based assistance as needed. I have reviewed and agree with the Assessment and Plan as documented by the Stoneworking Sander. Patient given the opportunity to ask questions. Our service contacted for an assessment of: Hypertension As per above, patient with fluctuating blood pressures recently a medication adjustments. Is asymptomatic but wanted blood pressure check today. Denies chest pain, shortness of breath, dyspnea on exertion. Is adherent to all medications. Denies headache or neurologic changes. Per motor coach chauffeur on the scene, vital signs are stable patient is afebrile. Exam unremarkable per motor coach chauffeur on the scene. ECG noted Impression: Hypertension [...] altered mental status Not available 04/19/2024 08:01:08 06/17/2024 06/17/2024 Evaluation in e field was performed by my motor coach chauffeur colleague, as noted above, I provided real-time direction and supervision for this visit. This is a 48yo F with history of HTN and obesity who requests evaluation for intermittent lightheadedness and possibly low blood pressure. She is on lisinopril 40mg daily and propranolol TID (20mg qAM, 10mg other doses) for HTN and anxiety. Has lost a lot of weight and then also started Zepbound 2 weeks ago and BP meds were never adjusted down. Complains of feeling lightheaded upon standing mostly. No chest pain, SOB, headache, fever, NVD. She went to the ED a day and a half ago for evaluation and was sent home. Followed up with PCP yesterday who adjusted down lisinopril to 30mg qd. This morning she took lisinopril 30mg and propranolol 20mg at around 0600. Started feeling lightheaded and sweaty, took BP 96/72 and it was at that time. Has since been eating/drinking and is feeling mostly back to normal. Of note, states has lost 8lbs in the past 2 weeks since starting Zepbound but hasn't really decreased the amount of food intake. PE: General: Awake & alert, NAD Respiratory: Chest rise equal bilat, no increased wob CV: Regular rate, normal peripheral perfusion Neuro: A&Ox4, no focal deficits Impression: Lightheadedness Plan: -VSS, appears well -BP on lower end of normal but no hypotension. -Has no signs or sx of illness. -Glucose checked, was 121. -Certainly 8lbs weight loss in 2 weeks on top of previous weight loss could be the source of lower than previous BP. -PCP has already started to adjust down lisinopril. May need further decrease. HR 95 today, but propranolol which is mainly for anxiety and palpitations might also need to be adjusted. -No further eval required here. Had ED evaluation yesterday. Can continue to follow with PCP for med adjustments. -Advised not to stand up quickly, to be sure to stay hydrated. Disposition: Remain at home [email or web address] Not available 06/17/2024 11:48:11 07/06/2024 07/06/2024 As noted, we wer e called to see this patient regarding concerns of PATTERSON and dizziness concerns for hyponatremia. Evaluation in the field was performed by my motor coach chauffeur colleague, as noted above, I provided real-time direction and supervision for this visit. The evaluation revealed The patient is a 48 year old female with a past medical history of Bipolar Who presents with a headache. She feels dizzy. Doctor Howard Ward here. All right. How you doing today?Disorder, Gastroesophageal Reflux Disease (GERD), Hypertension, Anemia, Joint Replacement (e.g., Hip, Knee) Who presents with dizziness and headache. The patient does have a history of migraine headaches. She also has a history of low sodium in the past. At that time, she had dizziness and a headache and her sodium was in 120s and she needed to be admitted to the hospital. Patient denies any nausea, vomiting. No chest pain, no shortness of breath. No weakness of the arms or legs. She says this does feel a bit different than her typical migraines. On exam by the motor coach chauffeur, the patient has no concerning neurologic findings. She is not having any chest pain or shortness of breath. We checked her sodium which was 134. Her other Blood tests were in the normal range. The patient was given one liter of normal saline IV fluid bolus and [id number] milligrams IV. She felt much better after this intervention. I doubt she has a subarachnoid hemorrhage. I doubt she has meningitis. I doubt she has other types of intracranial hemorrhages. I believe she's safe to be treated at home. Red flags were discussed with the patient on when to seek medical treatment. Impression: acute headache Plan:1) BMP shows normal sodium of 134 no concerning findings 2) Pt given 1 l nss and toradol 15 mg iv and felt much better 3) red flags discussed with patient on when to seek Er treatment Primary care, consider ___ Disposition:y at home We discussed the diagnostic uncertainty of home visits and the risk associated with this. In this case, the patient and I felt this to be an acceptable and reasonable amount of risk given the benefit of avoiding an ED visit. We discussed the need to seek care urgently/emergentl y in the setting of any new or worsening serious symptoms, particularly worsening Patterson, change in mental status, chest pain or sob [email or web address] Not available 07/06/2024 18:40:32 Plan of Treatment Reminders Order Date Submit Date Provider Last Modified By Organization Details Last Modified Time Details Appointments None recorded. Lab BMP, serum or plasma 2024 025 SABIHA Manzano [facility], [address] [place] [address], [place], [id number] 19:36:18 glucose, fingerstick , blood 2024 025 [facility], [address] [place] [address], [id number] 5 12:42:50 urinalysis, dipstick 2024 025 [facility], [address] [place] [address], [id number] 5 16:34:28 culture, urine 2024 025 [place] [facility] (Centralized Electronic Ordering - All Locations), Patient Can Go To The Location Of Their Choice, [address] 20:06:10 Referral None recorded. Procedures None recorded. Surgeries None recorded. Imaging electrocard iogram [address] [facility], [address] [place] [address], [id number] 07:59:45 Medication Orders sodium chloride 0.9 % intravenous solution [address] [facility] [place] [address], [address] [place] [address], [id number], 18:01:56 ketorolac 30 mg/mL injection solution 2024 [facility] [address] [place] [address], [address] [place] [address], [id number], 18:01:56 Patient TargetsNo targets recorded. Patient InstructionsNo instructions recorded. Reason for Referral None Reported. Results Created Date Observation Date Name Description Value Unit Range Abnormal Flag Note LastModifiedBy Organization Detail LastModifiedTime 02/22/1902/26/2024 CULTU RE, URINE , ROUTI NE culture, urine, routine SEE NOTE CULTU RE, URINE , ROUTI NE Micro Numbe r: [id number] Test Statu s: Final Speci men Sourc e: Urine Speci men Quali ty: Adequ ate Resul t: No Growt h Not Available [facility] [address] [place] [address] Mohinder B, [place], [address], 02/26/2024 04:41:56 02/25/19 25 02/29/2024 URINE CULTU RE,CO MPREH ENSIV E urine culture,comp rehensive Final report Not Available [facility] ([facility]) [address] [facility], [place], [address], 02/29/2024 10:06:00 02/25/19 25 02/29/2024 URINE CULTU RE,CO MPREH ENSIV E result 1 COMMEN T No growt h in 36 - 48 hours . Not Available [facility] ([facility]) [address] [facility], [place], [address], 02/29/2024 10:06:00 03/23/19 25 03/24/2024 URINE CULTU RE, ROUTI NE urine culture, routine Final report Not Available [facility] ([facility]) [address] [facility], [place], [address], 03/24/2024 20:06:10 03/23/1903/24/2024 URINE CULTU RE, ROUTI NE result 1 COMMEN T Cultu re shows less than 10,00 0 colon y formi ng units of bacte carter per angela liter of urine . This colon y count is not gener ally consi dered to be clini rubén signi fican t. Not Available [facility] ([facility]) [address] [facility], [place], [address], 03/24/2024 20:06:10 04/20/1904/19/2024 elect richie soto am No observ ation record ed. [email or web address] [address], [phone] 04/19/2024 08:02:01 Result Notes None recorded. Procedures Surgical History None recorded. Imaging Results Imaging Date Name Status LastModified by Organization Details LastModified Time 04/19/2024 electrocardiogram completed [email or web address] [address], [address] 04/19/2024 08:02:01 Procedure Notes None recorded. Medical Equipment None Reported. Allergies Allergen ID Allergen Name Allergen Category Reaction Reaction Severity Criticality Documentation Date Start Date Code Code System Note Provider Name and Address Organization Details Recorded Time 83641 Dilantin medicatio n Not available Not available Not available 02/22/2024 0 RxNorm Not Available [facility] - production 5 14:48:20 33155 sulfameth oxazole medicatio n Not available Not available Not available 02/22/2024 13959 RxNorm Not Available [facility] - production 5 14:48:20 41250 trimethop rim medicatio n Not available Not available Not available 02/22/2024 06037 RxNorm Not Available [facility] - production 5 10:23:13 97554 Product containin g penicilli n (product) medicatio n Not available Not available Not available 02/22/2024 86730 8001 SNOMED Not Available [facility] - production 5 14:48:20 97182 penicilli n G benzathin e medicatio n Not available Not available Not available 02/22/2024 7982 RxNorm Not Available [facility] - production 5 14:48:20 99197 penicilli n G procaine medicatio n Not available Not available Not available 02/22/2024 7983 RxNorm Not Available [facility] - production 5 14:48:20 Medications Name [...] /min 107 mm[Hg] 73 mm[Hg] Not Available [facility] [facility] - production 5 18:50:30 Date Recorded Body temperature Oxygen saturation Oxygen saturation in Arterial blood by Pulse oximetry Heart rate Respiratory rate Systolic blood pressure Diastolic blood pressure Provider Name and Address Organization Details Last Updated DateTime 5 98.6 [degF] 98 % 98 % 77 /min 18 /min 132 mm[Hg] 91 mm[Hg] Not Available [facility] - production 5 21:02:13 Date Recorded Body height Body weight Body temperature Heart rate Heart rate Oxygen saturation Oxygen saturation in Arterial blood by Pulse oximetry Respiratory rate Systolic blood pressure Diastolic blood pressure Systolic blood pressure Diastolic blood pressure Provider Name and Address Organization Details Last Updated DateTime 5 157.48 cm 43705.3 6 g 98 [degF] 86 /min 95 /min 100 % 100 % 18 /min 108 mm[Hg] 76 mm[Hg] 101 mm[Hg] 70 mm[Hg] Not Available [facility] - 5 11:35:52 Date Recorded Oxygen saturation Oxygen saturation in Arterial blood by Pulse oximetry Heart rate Respiratory rate Body temperature Systolic blood pressure Diastolic blood pressure Systolic blood pressure Diastolic blood pressure Provider Name and Address Organization Details Last Updated DateTime 5 100 % 100 % 80 /min 16 /min 97.3 [degF] 142 mm[Hg] 84 mm[Hg] 144 mm[Hg] 94 mm[Hg] Not Available [facility] - production 5 17:58:17 Social History None recorded. Functional Status None recorded. Mental Status None recorded. Family History Nothing Reported. Medical History No medical history recorded. Gynecological HistoryNo gynecological history recorded. Obstetrics History GPAL:G 0 P 0 0 0 0 Past Encounters Encounter ID Performer Location Encounter Start Date Encounter Closed Date Diagnosis/Indication Diagnosis SNOMED-CT Code Diagnosis ICD10 Code Diagnosis Note [id number] KALYN YAO MD [facility] [address] [place] [phone] 02/22/2024 21:29:01 02/23/2024 18:48:12 Urinary symptoms 548045904 R39.9 Evaluation in the field was performed by my motor coach chauffeur colleague, as noted above, I provided real-time [...] for leukocytes , nitrites, blood, and ketones.Al kggiableardo: Reviewed. Impression :UTI Plan:-UA findings are consistent with a UTI. Given the lack of systemic symptoms and CVA tenderness , the diagnosis is most likely simple cystitis.- Prescripti on for Macrobid 100 mg BID for 5 days sent to the patient's pharmacy. The first dose was administer ed by the motor coach chauffeur. -To alleviate the burning sensation, a prescripti [...] or flank pain or any other concerns. [id number] Fawn Coelho MD [facility] - [facility] [address] [place] [phone] 02/23/2024 14:34:12 02/23/2024 18:56:04 Urinary symptoms [id number] R39.9 [id number] Aramis Gallardo MD [facility] - [facility] [address] [place] [phone] 02/26/2024 11:22:16 02/28/2024 11:56:29 Urinary symptoms 236915008 R39.9 Fever [id number] R50.9 [id number] Jessica Hadley MD [facility] - [facility] [address] [place] [phone] 03/23/2024 13:03:05 03/25/2024 16:45:46 Urinary symptoms [id number] R39.9 As noted, we were called to see this patient regarding concerns of urinary symptoms. Evaluation in the field was performed by my motor coach chauffeur colleague, as noted above, I provided real-time [...] changes to consciousn ess, chest pain, dypsnea. [id number] Alisia Aguirer MD Main - [address] [phone] 04/01/2024 18:50:28 04/01/2024 19:49:17 Low back pain [id number] M54.50 48 year old female with a [...] of the lower extremitie s. [facility] which is helping bring the paind own. Exam notable for normal vital signs, neurologic exam is grossly normal. Presentati on consistent with acute on chronic lumbar radiculopa thy, no red flags noted. I have reviewed and agree with the assessment and plan as documented by the motor coach chauffeur. I provided real-time medical direction for this encounter and was immediatel y available to provide additional phone-base d assistance as needed. We discussed the diagnostic uncertaint y of home visits and associated risks. We discussed the need to seek care urgently/e mergently in the setting of any new or worsening symptoms. [id number] Fawn Coelho MD [facility] - [facility] [address] [place] [phone] 04/18/2024 20:44:44 04/19/2024 19:18:03 Essential hypertension [id number] I10 [id number] Katia Irvin MD Main - [address] [phone] 06/17/2024 11:35:49 06/17/2024 13:51:22 Lightheadedness [id number] R42 [id number] DELROY LAWRENCE MD [facility] - [facility] [address] [place] [id number] 07/06/2024 17:58:16 07/07/2024 17:54:54 Acute headache 842201728 R51.9 Health Concerns Section Related Observation LastModified by Organization Detai ls LastModified Time None Recorded Concern Status LastModified by Organization Details LastModified Time None Recorded Advance Directives Directive None Recorded Payers Insurance Date Sequence Insurance Name Policy Number Policy Fernandez Covered Member ID Fernandez Member ID Guarantor Name 07/06/2024 1 [facility] - DOS ON OR AFTER 2022 - DUAL ELIGIBLE - [employer]IONS AND ONE [employer]ARE (MEDICARE REPLACEMENT/ADV ANTAGE - HMO) Atiya Dotson [id number] Atiya Dotson Notes Date Note Type Note [...] at 03/23/2024 Allergies Reviewed at 03/23/2024 Comments: Bulk Pallet Builder verified the Pt.'s name//address and phone number. [...] Tylenol for pain - Wellness visit requested Stoneworking Sander Organization Information for Sandro Kearney [employer] Legal Name: [facility] Address: [address] [place] [address], Cutting [place] Supervisor: Jeff Bautista MD [facility] No.: [id number] Stoneworking Sander POC Test Results from Sandro Kearney Urine Dipstick (13:07:26) Urine leukocytes: trace LEXIE Urine nitrites: - NIT Urine urobilinogen: - URO Urine protein: - PRO Urine pH: 5.0 pH Urine blood: - BLO Urine specific gravity: 1.010 SG Urine ketones: - KET Urine bilirubin: - MARCEL Urine glucose: - GLU ...................... ...................... ...................... ...................... ...................... ...................... ......... Stoneworking Sander Note From Sandro Kearney: This 48-year-old female [...] ...................... ...................... ...................... ...................... ...................... ...................... ......... [facility] Consulted: Jessica Hadley ...................... ...................... ...................... ...................... ...................... ...................... ......... Disposition: Fulfilled Jessica Hadley MD [address] [facility],[address], [place], [phone], [employer] 03/23/2024 13:41:47 04/01/2024 text/html CRC Nurse Triage [...] ...................... ...................... ...................... ...................... ...................... ...................... ......... Stoneworking Sander Note From Inna Galvan: Sent to a [...] ...................... ...................... ...................... ...................... ...................... ...................... ......... C Consulted: Alisia Aguirre ...................... ...................... ...................... ...................... ...................... ...................... ......... Disposition: Fulfilled Alisia Aguirre MD [address] [facility],[address], [place], [address], [employer] 04/01/2024 19:22:50 04/18/2024 text/html CRC Nurse Triage [...] (GERD), Hypertension PMH Reviewed at 04/18/2024 - :11 Allergies Reviewed at 04/18/2024 - 19:11 Comments: [...] hospital. She would like to be evaluated. Stoneworking Sander Organization Information for Inna Galvan [employer] Legal Name: [email or web address] Address: [address] [place] [address], Cutting Department Supervisor: Benjy COLON No.: [id number] Stoneworking [employer]ander POC Test Results from Inna Galvan - [facility] EKG (21:04:35) EKG test performed. Attachments uploaded as part of this test result can be found under Documents section. ...................... ...................... ...................... ...................... ...................... ...................... ......... Stoneworking Sander Note From Inna Galvan: Sent to a [...] warm, dry; 12 lead ECG: uploaded to [employer]; Pt states she does not want to go to ED, she only wants to be evaluated in home. C consulted and pt is advised ECG appears normal. Pt is advised to rest and follow up with Cardiology as previously planned. Red flags discussed. Pt has no further questions. ...................... ...................... ...................... ...................... ...................... ...................... ......... [facility] Consulted: Fawn Coelho ...................... ...................... ...................... ...................... ...................... ...................... ......... Disposition: Fulfilled Fawn Coelho MD [address] [place] [address],[address], [place], [phone] [employer] 04/19/2024 08:01:24 06/17/2024 text/html CRC Nurse Triage Notes (Tami Ambriz): Reason For Request: *06/15 visit with iTr[facility] declinedPt reporting severe dizziness and lightheadedness>sweats >96/72 bp, pulse is 90> Denies: History of Heart Attack, in the setting of active chest pain Active Chest pain, radiates to neck jaw and or arm Diaphoretic/Sweating Describes as ? c rushing? Sudden onset of nausea/Vomiting and shortness of breath. Shortness of Breath Unable to speak in full sentences without distress Chief Complaints: Dizziness, Headache, Low Blood Pressure PMH: Bipolar Disorder, Gastroesophageal Reflux Disease (GERD), Hypertension PMH Reviewed at 06/17/2024 - : Allergies Reviewed at 06/17/2024 - : Pain Assessment: Level null out of 10 Comments: [age] y.o female complains of Dizziness, Headache, Low Blood Pressure HR Patient reports being in the ED yesterday for same symptoms, and her lisinopril was lowered from 40mg to 30mg by her PCP. She took her Lisinopril 30mg this morning around 6a, and now feels sweaty and lightheaded, current BP 96/72 HR 90 and strong. She denies any chest pain, no shortness of breath, no palpitation, no nausea or vomiting, no dizziness or blurry vision. Patient called back, BP 96/70 HR 102- she also reports she takes Propranolol 20mg, and took at the same time lisinopril, 6a today. RED flags discussed with patient when to call 911, she verbalized understanding. I provided information on the mobile health provider response time and advised the patient and/or caregiver to monitor reported signs and symptoms. I discussed the warning signs of when to seek emergency care. Stoneworking Sander Organization Information for Inna Galvan [employer] Legal Name: [employer]? Address: [address] [place] [address], Cutting Department Supervisor: Benjy Haile MD [facility] No.: [id number] [employer]working Sander POC Test Results from Inna Galvan Blood Glucose Measurement (12:28:14) Blood Glucose: 121 mg/dL ...................... ...................... ...................... ...................... ...................... ...................... ......... Stoneworking Sander Note From Inna Galvan: Sent to a call for a pt complaining of hypotension. SC8 arrives on scene, pt is alert and oriented, airway is patent. Pt allergies verified: Dilantin, Sulfa, and PCN; Pt states she had issues with hypertension for several months resulting in Lisinopril being slowly increased from 5mg to 40mg daily. Pt states she lost a lot of weight recently, and her Lisinopril/Propanolol dosages were not changed. Pt complains of hypotension x 1.5 months. Pt states she started Zepbound 2 weeks ago. Pt states she was evaluated in ED on Sunday night for hypotension/dizziness, and followed up with PCP yesterday. Pt states Lisinopril was changed from 40mg to 30mg daily. Pt also is prescribed Propanolol 20mg AM, 10mg noon, and 10mg PM. Pt states she took Lisinopril 30mg and Propanolol 20mg at 6am, and began complaining of dizziness (off balance) and diaphoresis at about 9am. Pt states BP:96/72. Pt states BP increased to 108/77 prior to visit. Pt states she is feeling better than earlier. (sitting) BP:108/76, P:86, RR:18, SpO2:100% RA, T:98.0; (standing) BP:101/70, P:95; Head: unremarkable; Lung sounds: clear bilaterally; Abdomen: soft, non-tender, no distention; Back: unremarkable; Extremities: unremarkable; Skin: pink, warm, dry; [facility] consulted and orders FSBG. B; Pt is advised to stand up slowly. Pt is advised to follow up with PCP. Red flags discussed. Pt has no further questions. [facility] Lab Orders: glucose, fingerstick, blood: Performed ...................... ...................... ...................... ...................... ...................... ...................... ......... [facility] Consulted: Katia Irvin ...................... ...................... ...................... ...................... ...................... ...................... ......... Disposition: Fulfilled Katia Irvin MD [address] [place] [address],[address], [place], [address], [facility] [employer] 06/17/2024 12:35:47 07/06/2024 text/html CRC Nurse Triage Notes (Tami Ambriz): Reason For Request: Patient doesn't feel well, and wants her blood checked.Denies: Worst Headache of life New onset of vision loss Sudden onset -unilateral weakness/gait disturbance Fall with head strike and altered LOC New onset of Slurred speech or difficulty finding words Sudden Mental status changes Head pain with fever chills and neck pain Seizure activity Chief Complaints: Dizziness, HeadachePMH: Bipolar Disorder, Gastroesophageal Reflux Disease (GERD), Hypertension, Anemia, Joint Replacement (e.g., Hip, Knee)PMH Reviewed at 07/06/2024 - :Allergies Reviewed at 07/06/2024 - :Comments: 48 y.o female complains of Dizziness, Headache Patient reports feeling dizzy and lightheaded since this morning, she also endorses a headache.She denies any weakness, numbness or tingling anywhere- left leg is weak from a TKR May 27.She denies blurry vision, no nausea, vomiting or diarrhea, no chest pain or shortness of breath.She is concerned because she has a history of hyponatremia and anemia.She would like to be evaluated.Blood pressure 110/80 I provided information on the mobile health provider response time and advised the patient and/or caregiver to monitor reported signs and symptoms. I discussed the warning signs of when to seek emergency care. [employer] Organization Information for Sandro Kearney Legal Name: [facility] TransportationAddress: [address] [facility], [place] [address], USMedical Director: Jeff Bautista [facility] No.: [id number] [employer] POC Test Results from Sandro Kearney [facility] (17:56:16)pH: 7.39 pH unitspCO2: 37.6 mmHgpO2: 36.2 mmHgNa: 134 mmol/LK: 4.1 mmol/LiCa: 1.29 mmol/LCl: 100 mmol/LTCO2: 22.0 mEq/LHct: 39 %Hb: 13.4 g/dLGlu: 102 mg/dLLac: 0.59 mmol/LCr: 0.61 mg/dLBUN: 15 mg/dLA mmol/LHCO3: 22.8 mmol/L ...................... ...................... ...................... ...................... ...................... ...................... ......... 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 Patient is concerned that she may be anemic or hyponatremia, as this is happened in the past. Patient states she's eating and drinking normally and denies any chest pain, shortness of breath, vision changes, photophobia, focal weakness, fevers, nausea, vomiting, diarrhea. Patient states her lisinopril was recently lowered from 40 mg to 30 mg and at the last visit the doctor instructed her to cut the 30 mg pill in half however she is unable to because it is not scored. Patient plans to follow-up with PCP regarding lisinopril. Patient presents awake and alert, in no acute distress and speaking full sentences. Her vital signs are reasonably stable, not orthostatic and she is afebrile. Nonfocal neurological exam. Normal gait. Lungs are clear throughout auscultation. Abdomen is soft, nontender, nondistended. No lower extremity edema. Unremarkable POC labs are uploaded. I treated with normal saline 1 L IV and Ketorolac 15 mg IVP. Patient endorses improved headache and resolved dizziness post treatment. We discussed the diagnostic uncertainty of home visits and the risk associated with this. In this case, the patient and I felt this to be an acceptable and reasonable amount of risk given the benefit of avoiding an ED visit. I recommend she stay well hydrated and follow up with her PCP this week regarding today's symptoms and her lisinopril dosage. I instructed her to present to the emergency department for any new or worsening severe symptoms such as chest pain, shortness of breath, focal weakness, high fever, altered mental status. Patient was given the opportunity to ask questions and is agreeable to this plan. [facility] Lab Orders: BMP, serum or plasma: Performed [facility] Medication Orders: sodium chloride 0.9 % intravenous solution: Administered ketorolac 30 mg/mL injection solution: Administered ...................... ...................... ...................... ...................... ...................... ...................... ......... [facility] Consulted: Delroy Lawrence ...................... ...................... ...................... ...................... ...................... ...................... ......... Disposition: Fulfilled DELROY LAWRENCE MD [address] [facility],[address], [place], [address], [employer] 07/06/2024 18:41:33 OBGyn Episode No OBEpisode recorded.
--- OUTSIDE RECORDS SUMMARY | 2024-07-10 08:25 | XMS_ITS | Encounter Summary ---
Author Organization [employer] Address [address] [place] [address] [address] [place] [address] Care Team Providers Care Medical Collections Name Role Phone Maddie Kim MD Primary Care Provider [phone] Reason for Visit * Reason Onset Date Comments Nutrition Medication Question 05/30/2023 Encounter Details Date Type Department Care Team ([facility] Contact Info) Description 05/30/2023 Telephone [facility] MEDICINE [address] [place], [place] [phone] Maddie Kim MD [address] [place], [place] [phone] Nutrition Medication Question Social History Tobacco Use [...] as of this encounter Care Teams Medical Collections Relationship Specialty Start Date End Date Maddie Kim MD [address] [place] [address] PCP - General Family Medicine 07/12/20 Willie Gage 01/17/22 documented as of this encounter
--- OUTSIDE RECORDS SUMMARY | 2024-07-10 08:25 | XMS_ITS | Encounter Summary ---
Author Organization [facility] Address [address] [place] [address] Care Team Providers Care Laborer Operator Name Role Phone Darya Hamilton MD Primary Care Provider Ronak Beasley, Pcp Primary Care Provider Unavailabl e Darya Hamilton MD Primary Care Provider Lewis Birmingham MD Primary Care Provider Un available Dipesh Kern MD Primary Care Provide r Unavailable Becca Hinkle MD Primary Care Provider Unavailable Encounter Details Date Type Department Care Team Description 05/27/2014 Home Health Certification Medical Records [address] [place] [address] Abstract, Provider Social History Tobacco Use Types [...] filedocumented in this encounter Care Teams Laborer Operator Relationship Specialty Start Date End Date Darya Hamilton MD PCP - General 06/30/10 03/15/15 [facility], Pcp PCP - General Internal Medicine 03/16/15 06/20/16 Darya Hamilton MD PCP - General Internal Medicine 06/21/16 11/12/16 Lewis Espino MD PCP - General Internal Medicine 11/13/16 Dipesh Kern MD PCP - General Internal Medicine 10/15/18 Becca Hinkle MD PCP - General Internal Medicine 03/23/21 documented as of this encounter
--- OUTSIDE RECORDS SUMMARY | 2024-07-10 08:26 | XMS_ITS | Patient Health Record ---
Author Organization [facility] [employer] Address [address] [place] [address] Care Team Providers Care Heater Room Helper Name Role Phone Maya Wu Primary Care Provider Reshma Sky Unavailable [phone] Allergies Allergen (clinical drug ingredient) Drug/Non Drug [...] Provider Name:Reshma Rena palomino, 07/11/2024 12:30:00 PM, [address] [place] [address], [phone], Insurance Providers Payer Name Payer Address Payer Phone Subscriber Number Group Number Insured Name Patient Relationship to Insured Coverage Start Date Coverage End Date [facility] [employer] Claims [address] [place] [id number] Atiya Dotson Self - patient is the insured Medical (General) History Medical History History ICD Code Anxiety Arthritis Back,Hip,and Knee pain Depression Gall bladder problems High blood pressure Reflux ( GERD) thyroid ulcer Chicken pox Joint implants/screws Surgical History Surgery Date(Month/Year) gastric bypass 2009 bowel obstruction 2019 Right knee replacement 03/13
--- OUTSIDE RECORDS SUMMARY | 2024-07-10 08:26 | XMS_ITS | Encounter Summary ---
Author Organization [employer] Address [address] [facility] [address] [place] [address] Care Team Providers Care Deputy Chief Executive Name Role Phone Maddie Kim MD Primary Care Provider [phone] Encounter Details Date Type Department Care Team ([facility] Contact Info) Description 01/02/2024 Orders Only [facility] MEDICINE [address] [place], [place] [phone] Maddie Kim MD [address] [place], [place] [phone] Social History Tobacco Use Types Packs/Day Years [...] documented as of this encounter Care Teams Deputy Chief Executive Relationship Specialty Start Date End Date Maddie Kim MD [address] [place] [address] PCP - General Family Medicine 07/12/20 Willie Gage 01/17/22 documented as of this encounter
--- OUTSIDE RECORDS SUMMARY | 2024-07-10 08:26 | XMS_ITS | Continuity of Care Document ---
Author Organization [facility], [facility] Address [address] [place] [address] Care Team Providers Care Data Management Specialist Name Role Phone JEAN-PIERRE MASON Primary Care Provider [phone] Assessment Encounter Date Assessment Date Assessment LastModified by Organization Details LastModified Time 07/08/2024 07/08/2024 Assessment: Pt reached knee ROM goals. Ongoing quad weakness and control challenged with ascend to 6inch step w/ surgical LE. Good emely to side stepping, no instances of LOB or LE instability. Plan: Continue PT @ 2x/wk to decrease pain, increase ROM, optimize mechanics for functional mobility with gait and stairs, and facilitate independence with functional ADL's. [email or web address] Not available 07/09/2024 21:42:04 Plan of Treatment Reminders Order Date Submit Date Provider Last Modified By Organization Details Last Modified Time Details Appointments PT FOLLOW-U P 2024 09:30A Kolton Gonzalez, FIRE ADJUSTER Not available Not available Not available PT FOLLOW-U P 2024 05:00P M Na Gonzalez, FIRE ADJUSTER Not available Not available Not available PT FOLLOW-U P 2024 05:00P M Na Gonzalez, FIRE ADJUSTER Not available Not available Not available PT FOLLOW-U P 2024 03:30P M Na Gonzalez, FIRE ADJUSTER Not available Not available Not available PT FOLLOW-U P 2024 06:00P M Hector Sams, PT Not available Not available Not available PT FOLLOW-U P 2024 09:30A M Na Gonzalez, FIRE ADJUSTER Not available Not available Not available PT FOLLOW-U P 2024 09:30A M Na Gonzalez, FIRE ADJUSTER Not available Not available Not available PT FOLLOW-U P 2024 09:30A M Hector Sams, PT Not available Not available Not available PT FOLLOW-U P 2024 09:30A M Hector Georgeser, PT Not available Not available Not available PT FOLLOW-U P 2024 09:30A M Na Malonee, FIRE ADJUSTER Not available Not available Not available PT FOLLOW-U P 2024 09:30A M Na Gonzalez, FIRE ADJUSTER Not available Not available Not available RECHECK [...] Abnormal Flag Note LastModifiedBy Organization Detail LastModifiedTime 06/11/19 25 06/10/2024 XR, knee, 3 view http:/ [email or web address] ?Encry pted=s hAaTro YD8dLq bEUv6g %2BXZw aYqtaq 0bqfl% 2Fg9IQ a4ajBk vP9nXo QUaueC m3YtLR FvZlgJ JJ8mAn HZtai3 7v6203 AC0Kla n2HUqa nKiQtr MwF INTERFACE [address], [place], [address], 06/10/2024 13:28:17 06/11/19 25 06/10/2024 XR, knee, 3 view [email or web address]:/ [email or web address] ?Encry pted=s hAaTro YD8dLq bEUv6g %2BXZw aYqtaq 0bqfl% 2Fg9IQ a4ajBk vP9nXo QUaueC m3YtLR FvZlgJ JJ8mAn HZtai3 4l9035 AC0Kla n2HUqa nKiQtr MwF INTERFACE [facility] [address], [place], [address], 06/10/2024 13:28:19 Result Notes None recorded. Problems Name Problem SNOMED Code Status Onset Date Resolution Date Notes Provider Name and Address Organization Details Recorded Time Fracture of ankle 77610134 [facility] 4 15:14:42 No complaints 162727232 Active Status : 'I'; Not Available [employer] 4 09:21:06 Postoperat laurence pain 402204419 Active 2024 Huma Augustin APRN [address], [place], [address] , [facility] 5 10:10:16 Mass of joint of left wrist 3305123667073 9101 Active 2023 Cammy Ovalle, OTR/L,CHT [address], [place], [address] , [facility] 4 09:39:49 Problem Notes None recorded. Procedures Surgical History Date Name Laterality Status Provider Name and Address Organization Details Recorded Time 07/09/19 55041 Therapeutic Exercise (1:1) completed Na Gonzalez, FIRE ADJUSTER [address], [place], [address], [facility] 07/09/2024 21:36:12 07/09/19 14886: Neuromuscular Re-Education completed Na Gonzalez, FIRE ADJUSTER [address], [place], [address], [facility] 07/09/2024 21:40:29 07/04/19 80712: Therapeutic Activities (1:1) cancelled Hector Sams, PT [address], [place], [address], [facility] 07/02/2024 05:38:15 07/04/19 80812 Therapeutic Exercise (1:1) cancelled Hector Pyser, PT [address], [place], [address], [facility] 07/02/2024 05:38:15 07/04/19 86879: Manual therapy cancelled Hector Pyser, PT [address], [place], [address], [facility] 07/02/2024 05:38:15 07/01/19 17219: Therapeutic Activities (1:1) completed Hector Pyser, PT [address], [place], [address], [facility] 06/30/2024 10:41:35 07/01/19 92766 Therapeutic Exercise (1:1) completed Hector Pyser, PT [address], [place], [address], [facility] 06/30/2024 11:06:28 07/01/19 48540: Manual therapy completed Hector Pyser, PT [address], [place], [address], [facility] 06/30/2024 11:06:16 06/28/19 60713: Therapeutic Activities (1:1) cancelled Hector Pyser, PT [address], [place], [address], [facility] 06/26/2024 12:47:26 06/28/19 13821 Therapeutic Exercise (1:1) cancelled Hector Pyser, PT [address], [place], [address], [facility] 06/26/2024 12:47:26 06/28/19 17443: Manual therapy cancelled Hector Pyser, PT [address], [place], [address], [facility] 06/26/2024 12:47:26 06/25/19 50213: Therapeutic Activities (1:1) cancelled Hector Pyser, PT [address], [place], [address], [facility] 06/23/2024 16:32:14 06/25/19 81404 Therapeutic Exercise (1:1) cancelled Hector Pyser, PT [address], [place], [address], [facility] 06/23/2024 16:32:14 06/25/19 09943: Manual therapy cancelled Hector Pyser, PT [address], [place], [address], [facility] 06/23/2024 16:32:14 06/19/19 88477: Therapeutic Activities (1:1) completed Na Gonzalez, FIRE ADJUSTER [address], [place], [address], [facility] 06/18/2024 15:01:55 06/19/19 21575 Therapeutic Exercise (1:1) completed Na Gonzalez, FIRE ADJUSTER [address], [place], [address], [facility] 06/18/2024 15:01:55 06/19/19 73692: Manual therapy completed Na Gonzalez, FIRE ADJUSTER [address], [place], [address], [facility] 06/18/2024 15:01:55 06/13/19 39100: Therapeutic Activities (1:1) completed Na Gonzalez, FIRE ADJUSTER [address], [place], [address], [facility] 06/13/2024 07:27:56 06/13/19 49296 Therapeutic Exercise (1:1) completed Na Gonzalez, FIRE ADJUSTER [address], [place], [address], [facility] 06/13/2024 07:27:26 06/13/19 16545: Manual therapy completed Na Gonzalez, FIRE ADJUSTER [address], [place], [address], [facility] 06/13/2024 07:27:52 06/10/19 25 90506 Therapeutic Exercise (1:1) completed Hector Pyser, PT [address], [place], [address], [facility] 05/31/2024 14:22:51 06/10/19 62439: Low complexity PT Eval completed Hector Pyser, PT [address], [place], [address], [facility] 05/31/2024 14:22:53 05/01/19 19576 Therapeutic Exercise (1:1) completed Hector Pyser, PT [address], [place], [address], [facility] 04/29/2024 14:50:39 05/01/19 90513: Low complexity PT Eval completed Hector Pyser, PT [address], [place], [address], [facility] 04/29/2024 14:50:41 12/04/19 24 Sports Knee 4&1 completed Juancarlos Iyer PA-C [address] [facility], [place], [address], [facility] 12/04/2023 11:27:50 06/08/19 24 Splint_Short Arm Fiberglass_11+ completed JUNI SHELTON [facility] 06/08/2023 13:25:25 Imaging Results None recorded. Procedure Notes None recorded. Medical Equipment None Reported. Allergies Allergen ID Allergen Name Allergen Category Reaction Reaction Severity Criticality Documentation Date Start Date Code Code System Note Provider Name and Address Organization Details Recorded Time 468070 penicilli n G benzathin e medicatio n Not available Not available Not available 04/23/20232012 7982 RxNorm GOMEZ LAMA [facility] 4 13:22:51 540902 Dilaudid medicatio n Not available Not available Not available 04/23/20232012 83154 3 RxNorm GOMEZ LAMA [facility] 4 13:22:48 859529 Bactrim medicatio n Not available Not available Not available 04/23/20232020 75367 9 RxNorm JACKIE brunson [place] [facility] [place] [facility] 5 14:12:53 Medications Name Sig Start [...] 3 times a day by oral route as needed for 14 days, for muscle pain/ spasms. 2024 active Not Available Not Available Not [...] Not Available Not Available Not Available lisinopril 30 mg tablet TAKE 1 TABLET BY MOUTH EVERY DAY active Not Available Not Available No t Available docusate sodium 100 mg capsule TAKE 1 CAPSULE BY MOUTH TWICE A DAY active Not Available Not Available No t Available gabapentin 300 mg capsule TAKE 2 [...] No t Available oxycodone 5 mg tablet 1 tablets every 8 hours PRN severe pain 2024 active Not [...] ent'; Not Available Not Available Not Available Invega [...] completed Not Available Not Available Not Available Omron Blood Pressure Monitor-3 Series kit USE TO CHECK BLOOD PRESSURE EVERY DAY DIRECTED active Not Available Not Available No t Available Vitals None Recorded Social History None recorded. Functional Status None recorded. Mental Status None recorded. Family History Nothing Reported. Medical History Condition Response Allergies/Hayfever N Coronary Artery Disease N Anxiety/Depression Y Breathing or lung disorders N Emphysema N Nerve Disorders N Thyroid Problems N COPD N Pacemaker N Anemia N Kidney/Bladder Problems N Vascular Disease N Heart Trouble N Heart Attack (MS) N Gastrointestinal Disease N Cholesterol N Diabetes N Autoimmune disease N Bleeding Disorder N Orthotics N Arthritis Y Seizures/Epilepsy N Blood Clot N AIDS/HIV N Congestive Heart Failure (CHF) N Acid Reflux (GERD) Y Cancer N Stroke N Asthma N Circulation Problems N Peripheral Vascular Disease N Sleep Apnea N Hepatitis N Heart Disease N Rheumatoid Arthritis N Arrhythmia N Pulmonary Embolism N Headaches Y Fibromyalgia N Hypertension Y Osteoporosis N Gynecological HistoryNo gynecological history recorded. Obstetrics History GPAL:G 0 P 0 0 0 0 Past Encounters Encounter ID Performer Location Encounter Start Date Encounter Closed Date Diagnosis/Indication Diagnosis SNOMED-CT Code Diagnosis ICD10 Code Diagnosis Note [id number] Hector Sams, PT [facility] [address] [place] [address] 06/09/2024 16:25:39 06/09/2024 17:48:56 History of left total knee replacement 2254254315 706758 96.652 Z47.1 [id number] Alonzo Singleton PA-C [facility] [address] [place] [address] 06/10/2024 12:44:32 06/21/2024 19:41:07 Knee joint prosthesis present 7281219400 02 Z96.291 [id number] Na Gonzalez, FIRE ADJUSTER [facility] [address] [place] [address] 06/12/2024 11:16:51 06/12/2024 12:04:25 History of left total knee replacement 8709502464 528005 Z96.652 Z47.1 [id number] Na Gonzalez, FIRE ADJUSTER [facility] [address] [place] [address] 06/18/2024 14:25:56 06/18/2024 17:18:52 History of left total knee replacement 2584337294 819718 Z96.652 Z47.1 [id number] Hector Georgeser, PT [facility] [address] [place] [address] 06/30/2024 10:08:37 06/30/2024 14:09:41 History of left total knee replacement 5643717432 877570 Z96.652 Z47.1 [id number] Na Gonzalez, FIRE ADJUSTER [facility] [address] [place] [address] 07/08/2024 16:10:19 07/08/2024 17:23:29 History of left total knee replacement 1781123579 453137 Z96.652 Z47.1 Health Concerns Section Related Observation LastModified by Organization Detai ls LastModified Time None Recorded Concern Status LastModified by Organization Details LastModified Time None Recorded Payers Encounter Date Sequence Insurance Name Policy Number Policy Fernandez Covered Member ID Fernandez Member ID Guarantor Name 07/08/[address] [facility] - DOS ON OR AFTER 2022 - ONE CARE (MEDICARE REPLACEMENT/ADV ANTAGE - HMO) Atiya Dotson [id number] Atiya Dotson Notes Date Note Type Note Provider Name and Address Organization Details Recorded Time 07/08/2024 text/html Pt reports 3-4/1 0 pain upon entering therapy. Plans to return to gym, asked for appropriate exercises. Na Gonzalez PTA [address], [place], [address], [facility] [place] [facility] 07/09/2024 21:42:25 OBGyn Episode No OBEpisode recorded.
--- OUTSIDE RECORDS SUMMARY | 2024-07-10 08:26 | XMS_ITS | Encounter Summary ---
Author Organization [facility] Address [address] [place] [address] Care Team Providers Care Vest Maker Name Role Phone Darya Hamilton MD [...] 01/14/2010 Night Triage Doc Medical Records [address] [place] [address] Abstract, Provider Social History Tobacco Use Types [...] on filedocumented in this encounter Care Teams Vest Maker Relationship Specialty Start Date End Date Darya Hamilton MD PCP - General 06/30/10 03/15/15 Becca Hinkle MD PCP - General 04/22/0806/29 [facility], Pcp PCP - General Internal Medicine 03/16/15 06/20/16 Darya Hamilton MD PCP - General Internal Medicine 06/21/16 11/12/16 Lewis Espino MD PCP - General Internal Medicine 11/13/16 Dipesh Kern MD PCP - General Internal Medicine 10/15/18 [place]-Becca Callaway MD PCP - General Internal Medicine 03/23/21 documented as of this encounter
--- OUTSIDE RECORDS SUMMARY | 2024-07-10 08:26 | XMS_ITS | Encounter Summary ---
Author Organization [employer] Address [address] [place] [address] 7t [place] [address] Care Team Providers Care Educational Consultant Name Role Phone Maddie Kim MD Primary Care Provider [phone] Encounter Details Date Type Department Care Team ([facility] st Contact Info) Description 06/13/2024 Orders Only [facility] MEDICINE [address] [place], [place] [phone] Maddie Kim MD 230 [place], [place] [phone] Social History Tobacco Use Types Packs/Day Years [...] documented as of this encounter Care Teams Educational Consultant Relationship Specialty Start Date End Date Maddie Kim MD [address] [place] [address] PCP - General Family Medicine 07/12/20 Willie Gage 01/17/22 documented as of this encounter
--- OUTSIDE RECORDS SUMMARY | 2024-07-10 08:26 | XMS_ITS | Encounter Summary ---
Author Organization [employer] Address [address] [place] [address] 7 [place] [address] Care Team Providers Care Collar Closer Lockstitch Name Role Phone Maddie Kim MD Primary Care Provider [phone] Reason for Visit * Reason Onset Date Comments New Med Request 06/13/2024 Encounter Details Date Type Department Care Team ([facility] Contact Info) Description 06/13/2024 Telephone [facility] MEDICINE 230 [place], [place] [phone] Maddie Kim MD [address] [place], [place] [phone] New Med Request Social History Tobacco Use [...] EDT TC placed to Lauren (Visiting Nurse) [phone] regarding below message. Lauren informed RN that [...] Vitamin D-3 If any questions please contact [phone] documented in this encounter Plan of Treatment Not on file documented as of this encounter Visit Diagnoses Not on filedocumented in this encounter Additional Health Concerns Assessment Noted Time PHQ-9 Depression Total Score: 3 06/15/19 24 11:48 AM EDT documented as of this encounter Care Teams Collar Closer Lockstitch Relationship Specialty Start Date End Date Maddie Kim MD 230 [place] [address] PCP - General Family Medicine 07/12/20 Willie Gage 01/17/22 documented as of this encounter
--- OUTSIDE RECORDS SUMMARY | 2024-07-10 08:26 | XMS_ITS | Encounter Summary ---
Author Organization [facility] Address [address] [place] [address] Care Team Providers Care Highwall Drill Operator Name Role Phone Darya Hamilton MD Primary Care Provider Ronak Beasley, Pcp Primary Care Provider Unavailabl e Darya Hamilton MD Primary Care Provider Lewis [place] MD Primary Care Provider Un available Dipesh Kern MD Primary Care Provide r Unavailable Becca Hinkle MD Primary Care Provider Unavailable Encounter Details Date Type Department Care Team Description 05/13/2012 Controlled Substance Contract with [facility] Medical Records [address] [place] [address] Abstract, Provider Social History Tobacco Use Types [...] on filedocumented in this encounter Care Teams Highwall Drill Operator Relationship Specialty Start Date End Date Darya Hamilton MD PCP - General 06/30/10 03/15/15 [facility], Pcp PCP - General Internal Medicine 03/16/15 06/20/16 Darya Hamilton MD PCP - General Internal Medicine 06/21/16 11/12/16 Lewis Espino MD PCP - General Internal Medicine 11/13/16 Dipesh Kern MD PCP - General Internal Medicine 10/15/18 Becca Hinkle MD PCP - General Internal Medicine 03/23/21 documented as of this encounter
--- OUTSIDE RECORDS SUMMARY | 2024-07-10 08:26 | XMS_ITS | Encounter Summary ---
Author Organization [facility] Address [address] [place] [address] Care Team Providers Care Sports Cartoonist Name Role Phone Darya Hamilton MD Primary Care Provider Ronak Beasley, Pcp Primary Care Provider Unavailabl e Darya Hamilton MD Primary Care Provider Lewis [place] MD Primary Care Provider Un available Dipesh Kern MD Primary Care Provide r Unavailable Becca Hinkle MD Primary Care Provider Unavailable Encounter Details Date Type Department Care Team Description 01/23/2014 Release of Information Medical Records [address] [place] [id number] Abstract, Provider Social History Tobacco Use Types [...] filedocumented in this encounter Care Teams Sports Cartoonist Relationship Specialty Start Date End Date Darya Hamilton MD PCP - General 06/30/10 03/15/15 [facility], Pcp PCP - General Internal Medicine 03/16/15 06/20/16 Darya Hamilton MD PCP - General Internal Medicine 06/21/16 11/12/16 Lewis Espino MD PCP - General Internal Medicine 11/13/16 Dipesh Kern MD PCP - General Internal Medicine 10/15/18 Becca Hinkle MD PCP - General Internal Medicine 03/23/21 documented as of this encounter
--- OUTSIDE RECORDS SUMMARY | 2024-07-10 08:26 | XMS_ITS | Encounter Summary ---
Author Organization [employer] Address [address] [place] [address] 7 [place] [address] Care Team Providers Care Soap Boiler Name Role Phone Maddie Kim MD Primary Care Provider [phone] Reason for Referral * Consultation (Routine) - Closed Specialty Diagnoses / Procedures Referred By Sindi mejia Referred To Contact Nutrition Diagnoses Class 2 severe obesity with serious comorbidity and body mass index (BMI) of 39.0 to 39.9 in adult, unspecified obesity type (CMS/HCC) Maddie Kim MD [address] [place] [address] Phone: tel: fax: Referral ID Status Reason Start Date Expiration Date V isits Requested Visits Authorized [id number] Closed Consult and Treat 04/06/2023 04/05/2024 1 1 Encounter Details Date Type Department Care Team (Late st Contact Info) Description 04/06/2023 Orders Only [facility] MEDICINE [address] [place] [address] [phone] Maddie Kim MD [address] [place] [address] Class 2 severe obesity with serious comorbidity [...] as of this encounter Plan of Treatment Scheduled Referrals Name Type Priority Associated Diagnoses [...] EDT Narrative 05/26/2023 3:06 PM EDT ? [facility] ? [address] ?[place] [address] ? Mammography Report ? Signed ? Patient: [place],Atiya ?MR#: [id number] ? : 1975 ?Acct:[id number] ? Age/Sex: 47 / F ?ADM Date: 05/04/23 ? Loc: HO.MAMMO ? Attending Dr: Maddie Kim MD ? Ordering Physician: Maddie Kim ?Results: 1Negative ? Date of Service: 05/04/23 ?Follow Up: 1 Year From Orig ?? inal Mammogram ? Procedure(s): MM tomosynthesis screening BI ?? Accession Number(s): [id number] ? cc: Maddie Kim ? EXAMINATION: ?? [...] 1503 ? DD/ 1602 ? TD/TT: ? Defense Analyst: ? Procedure Note John Paul, Image - 05/26/2023 [place] [facility] [address] [place] [address] Mammography Report Signed Patient: Zain Esparza#: [id number] : 1975Acct:[id number] Age/Sex: 47 / FADM Date: 05/04/23 Loc: [place] Attending Dr: Maddie Kim MD Ordering Physician: Jaja Kimults: 1Negative Date of Service: 05/04/23Follow Up: 1 Year From Orig inal Mammogram Procedure(s): MM tomosynthesis screening BI Accession Number(s): [id number] cc: Maddie Kim EXAMINATION: MM SCREENING DIGITAL [...] in OV> 05/26/23 1503 DD/ 1602 TD/TT: Defense Analyst: Maddie Kim MD IMG BI PROCEDURES Final [...] documented as of this encounter Care Teams Soap Boiler Relationship Specialty Start Date End Date Maddie Kim MD [address] [place] [address] PCP - General Family Medicine 07/12/20 Willie Gage 01/17/22 documented as of this encounter
--- OUTSIDE RECORDS SUMMARY | 2024-07-10 08:26 | XMS_ITS | Encounter Summary ---
Author Organization [employer] Address [address] [place] [address] 7 [place] [address] Care Team Providers Care Boat Canvas Installer Name Role Phone Maddie Kim MD Primary Care Provider [phone] Reason for Visit * Reason Onset Date Comments FYI 02/15/2024 Encounter Details Date Type Department Care Team ([facility] Contact Info) Description 02/15/2024 Telephone [facility] MEDICINE 230 [place], [place] [phone] Maddie Kim MD 230 [place], [place] [phone] FY Social History Tobacco Use Types Packs/Day [...] any questions you can contact Lauren at [phone]. documented in this encounter Plan of Treatment Not on file documented as of this encounter Visit Diagnoses Not on filedocumented in this encounter Additional Health Concerns Assessment Noted Time PHQ-9 Depression Total Score: 3 06/15/19 24 11:48 AM EDT documented as of this encounter Care Teams Boat Canvas Installer Relationship Specialty Start Date End Date Maddie Kim MD [address] [place] [address] PCP - General Family Medicine 07/12/20 Willie Gage 01/17/22 documented as of this encounter
--- OUTSIDE RECORDS SUMMARY | 2024-07-10 08:26 | XMS_ITS | Encounter Summary ---
Author Organization [employer] Address [address] [place] [address] 7t [place] [address] Care Team Providers Care Activities Assistant Name Role Phone Maddie Kim MD Primary Care Provider Reason for Visit * Reason Onset Date Comments Med Refill 04/12/2023 Encounter Details Date Type Department Care Team ([facility] st Contact Info) Description 04/12/2023 Refill [facility] MEDICINE [address] [place], [place] [phone] Maddie Kim MD 230 [place], [place] [phone] Chronic bilateral low back pain without sciatica [...] documented as of this encounter Care Teams Activities Assistant Relationship Specialty Start Date End Date Maddie Kim MD [address] [place] [address] PCP - General Family Medicine 07/12/20 Willie Gage 01/17/22 documented as of this encounter
--- OUTSIDE RECORDS SUMMARY | 2024-07-10 08:26 | XMS_ITS | Encounter Summary ---
Author Organization [employer] Address [address] [place] [address] 7 [place] [address] Care Team Providers Care Gear Grinding Machine Operator Name Role Phone Maddie Kim MD Primary Care Provider [phone] Reason for Visit * Reason Onset Date Comments Nurse Triage 05/14/2023 Encounter Details Date Type Department Care Team ([facility] st Contact Info) Description 05/14/2023 Telephone [facility] MEDICINE [address] [place], [place] [phone] Maddie Kim MD 230 [place], [place] [phone] Nurse Triage Social History Tobacco Use Types [...] accepted this outcome Any questions to Destiny [phone] documented in this encounter Plan of Treatment Not on file documented as of this encounter Visit Diagnoses Not on filedocumented in this encounter Additional Health Concerns Assessment Noted Time PHQ-9 Depression Total Score: 0 05/30/19 23 3:26 PM EDT documented as of this encounter Care Teams Gear Grinding Machine Operator Relationship Specialty Start Date End Date Maddie Kim MD [address] [place] [address] PCP - General Family Medicine 07/12/20 Willie Gage 01/17/22 documented as of this encounter
--- OUTSIDE RECORDS SUMMARY | 2024-07-10 08:26 | XMS_ITS | Encounter Summary ---
Author Organization [employer] Address [address] [place] [address] 7 [place] [address] Care Team Providers Care Student Counsellor Name Role Phone Maddie Kim MD Primary Care Provider [phone] Reason for Visit * Reason Onset Date Comments Prior Authorization 05/19/2024 Encounter Details Date Type Department Care Team ([facility] Contact Info) Description 05/19/2024 Telephone [facility] MEDICINE [address] [place] [address] [phone] Maddie Kim MD 230 [place], [place] [phone] Prior Authorization Social History Tobacco Use Types [...] Tirzepatide-Weight Management (Zepbound) 2.5 MG/0.5ML solution auto-injector. Marketing Intern advise pt 7-14 business days. Pt verbalized [...] re fax it over. Contact pt at [phone] documented in this encounter Plan of Treatment Not on file documented as of this encounter Visit Diagnoses Not on filedocumented in this encounter Additional Health Concerns Assessment Noted Time PHQ-9 Depression Total Score: 3 06/15/19 24 11:48 AM EDT documented as of this encounter Care Teams Student Counsellor Relationship Specialty Start Date End Date Maddie Kim MD [address] [place] [address] PCP - General Family Medicine 07/12/20 Willie Gage 01/17/22 documented as of this encounter
--- OUTSIDE RECORDS SUMMARY | 2024-07-10 08:26 | XMS_ITS | Encounter Summary ---
Author Organization [employer] Address [address] [place] [address] 7 [place] [address] Care Team Providers Care Applications Engineering Manager Name Role Phone Maddie Kim MD Primary Care Provider [phone] Reason for Visit * Reason Onset Date Comments Hospital Follow-up 03/28/2024 Encounter Details Date Type Department Care Team ([facility] Contact Info) Description 03/28/2024 Telephone [facility] MEDICINE [address] [place] [address] [phone] Maddie Kim MD 230 [place], [place] [phone] Hospital Follow-up Social History Tobacco Use Types [...] pt requesting a HDF appt. Hospital: [facility] Date of admission: 03/24/24 Discharge date: 03/27/24 Diagnosed: Hyponatremia *Send message to Marydel Clinical Care Coordinators documented in this encounter Plan of Treatment Not on file documented as of this encounter Visit Diagnoses Not on filedocumented in this encounter Additional Health Concerns Assessment Noted Time PHQ-9 Depression Total Score: 3 06/15/19 24 11:48 AM EDT documented as of this encounter Care Teams Applications Engineering Manager Relationship Specialty Start Date End Date Maddie Kim MD [address] [place] [address] PCP - General Family Medicine 07/12/20 Willie Gage 01/17/22 documented as of this encounter
--- OUTSIDE RECORDS SUMMARY | 2024-07-10 08:26 | XMS_ITS | Encounter Summary ---
Author Organization [employer] Address [address] [facility] 7t [place] [address] Care Team Providers Care Global Professional Name Role Phone Maddie Kim MD Primary Care Provider [phone] Reason for Visit * Reason Comments Med Refill Encounter Details Date Type Department Care Team ([facility] st Contact Info) Description 04/12/2023 Refill [facility] [address] [place] [address] [phone] Isac Gonzalez MD [address] [place] [address] [phone] Chronic bilateral low back pain without sciatica [...] as of this encounter Care Teams Global Professional Relationship Specialty Start Date End Date Maddie Kim MD [address] [place] [address] PCP - General Family Medicine 07/12/20 Willie Gage 01/17/22 documented as of this encounter
--- OUTSIDE RECORDS SUMMARY | 2024-07-10 08:26 | XMS_ITS | Encounter Summary ---
Author Organization [facility] Address [address] [place] [address] Care Team Providers Care Laborer Airport Maintenance Name Role Phone Darya Hamilton MD Primary Care Provider Unava ilable Becca Hinkle MD Primary Care Provider Unavailable [facility], Pcp Primary Care Provider Unavailabl e Darya Hamilton MD Primary Care Provider Unava ilable Lewis Espino MD Primary Care Provider Un available Dipesh Kern MD Primary Care Provide r Unavailable Becca Hinkle MD Primary Care Provider Unavailable Encounter Details Date Type Department Care Team Description 09/27/2009 Night Triage Doc Medical Records [address] [place] [address] Abstract, Provider Social History Tobacco Use Types [...] filedocumented in this encounter Care Teams Laborer Airport Maintenance Relationship Specialty Start Date End Date Darya Hamilton MD PCP - General 06/30/10 03/15/15 Becca Hinkle MD PCP - General 04/22/0806/29 [facility], Pcp PCP - General Internal Medicine 03/16/15 06/20/16 Darya Hamilton MD PCP - General Internal Medicine 06/21/16 11/12/16 Lewis Espino MD PCP - General Internal Medicine 11/13/16 Dipesh Kern MD PCP - General Internal Medicine 10/15/18 [place]-Becca Callaway MD PCP - General Internal Medicine 03/23/21 documented as of this encounter
--- OUTSIDE RECORDS SUMMARY | 2024-07-10 08:26 | XMS_ITS | Encounter Summary ---
Author Organization [employer] Address [address] [facility] 7t [place] [address] Care Team Providers Care Clinical Practitioner Name Role Phone Maddie Kim MD Primary Care Provider [phone] Reason for Visit * Reason Comments Med Refill Encounter Details Date Type Department Care Team ([facility] st Contact Info) Description 04/12/2023 Refill [facility] [address] [place] [address] [phone] Isac Gonzalez MD [address] [place] [address] [phone] Chronic bilateral low back pain without sciatica [...] as of this encounter Care Teams Clinical Practitioner Relationship Specialty Start Date End Date Maddie Kim MD [address] [place] [address] PCP - General Family Medicine 07/12/20 Willie Gage 01/17/22 documented as of this encounter
--- OUTSIDE RECORDS SUMMARY | 2024-07-10 08:26 | XMS_ITS | Encounter Summary ---
Author Organization [facility] Address [address] [place] [address] Care Team Providers Care Chief Hydroelectric Station Operator Name Role Phone Darya Hamilton MD [...] 03/12/2010 Night Triage Doc Medical Records [address] [place] [address] Abstract, Provider Social History Tobacco Use Types [...] filedocumented in this encounter Care Teams Chief Hydroelectric Station Operator Relationship Specialty Start Date End Date Darya Hamilton MD PCP - General 06/30/10 03/15/15 Becca Hinkle MD PCP - General 04/22/0806/29 [facility], Pcp PCP - General Internal Medicine 03/16/15 06/20/16 Darya Hamilton MD PCP - General Internal Medicine 06/21/16 11/12/16 Lewis Espino MD PCP - General Internal Medicine 11/13/16 Dipesh Kern MD PCP - General Internal Medicine 10/15/18 [place]-Becca Callaway MD PCP - General Internal Medicine 03/23/21 documented as of this encounter
--- OUTSIDE RECORDS SUMMARY | 2024-07-10 08:26 | XMS_ITS | Encounter Summary ---
Author Organization [facility] Address [address] [place] [address] Care Team Providers Care Certified Midwife Name Role Phone Darya Hamilton MD Primary [...] Care Team Description 05/09/2014 Refill General Surgery [address] [place] [address] Per Wellington MD [address] [place] [address] E-prescribe Rx Request Social History Tobacco Use [...] filedocumented in this encounter Care Teams Certified Midwife Relationship Specialty Start Date End Date Darya Hamilton MD PCP - General 06/30/10 03/15/15 [facility], Pcp PCP - General Internal Medicine 03/16/15 06/20/16 Darya Hamilton MD PCP - General Internal Medicine 06/21/16 11/12/16 Lewis Espino MD PCP - General Internal Medicine 11/13/16 Dipesh Kern MD PCP - General Internal Medicine 10/15/18 [place]-Becca Callaway MD PCP - General Internal Medicine 03/23/21 documented as of this encounter
--- OUTSIDE RECORDS SUMMARY | 2024-07-10 08:27 | XMS_ITS | Encounter Summary ---
Author Organization [employer] Address [address] [place] [address] 7t [place] [address] Care Team Providers Care Javascript Developer Name Role Phone Maddie Kim MD Primary Care Provider [phone] Encounter Details Date Type Department Care Team ([facility] st Contact Info) Description 01/27/2022 Telephone [facility] MEDICINE [address] [place], [place] [phone] Maddie Kim MD [address] [place], [place] [phone] Social History Tobacco Use Types Packs/Day Years [...] on filedocumented in this encounter Care Teams Javascript Developer Relationship Specialty Start Date End Date Maddie Kim MD [address] [place] [address] PCP - General Family Medicine 07/12/20 Willie Gage 01/17/22 documented as of this encounter
--- OUTSIDE RECORDS SUMMARY | 2024-07-10 08:27 | XMS_ITS | Encounter Summary ---
Author Organization [facility] Address [address] [place] [address] Care Team Providers Care Commutator Presser Name Role Phone Lewis Espino MD Primary Care Provider Un available Dipesh Kern MD Primary Care Provide r Unavailable Becca Hinkle MD Primary Care Provider Unavailable Encounter Details Date Type Department Care Team Description 04/05/2017 Release of Information Medical Records [address] [place] [address] Abstract, Provider Social History Tobacco Use Types [...] on filedocumented in this encounter Care Teams Commutator Presser Relationship Specialty Start Date End Date Lewis Espino MD PCP - General Internal Medicine 11/13/16 Dipesh Kern MD PCP - General Internal Medicine 10/15/18 Becca Hinkle MD PCP - General Internal Medicine 03/23/21 documented as of this encounter
--- OUTSIDE RECORDS SUMMARY | 2024-07-10 08:27 | XMS_ITS | Encounter Summary ---
Author Organization [employer] Address [address] [facility] 7t [place] [address] Care Team Providers Care Cleaner And Polisher Name Role Phone Maddie Kim MD Primary Care Provider [phone] Reason for Visit * Reason Comments Med Refill Encounter Details Date Type Department Care Team ([facility] st Contact Info) Description 03/18/2023 Refill [facility] [address] [place] [address] [phone] Maddie Kim MD [address] [place] [address] [phone] Social History Tobacco Use Types Packs/Day Years [...] documented as of this encounter Care Teams Cleaner And Polisher Relationship Specialty Start Date End Date Maddie Kim MD [address] [place] [address] PCP - General Family Medicine 07/12/20 Willie Gage 01/17/22 documented as of this encounter
--- OUTSIDE RECORDS SUMMARY | 2024-07-10 08:27 | XMS_ITS | Encounter Summary ---
Author Organization [facility] Address [address] [place] [address] Care Team Providers Care Proposal Editor Name Role Phone Lewis Espino MD Primary Care Provider Un available Dipesh Kern MD Primary Care Provide r Unavailable Becca Hinkle MD Primary Care Provider Unavailable Encounter Details Date Type Department Care Team Description 10/10/2018 [facility] Medical Records [address] [place] [address] Abstract, Provider Social History Tobacco Use Types [...] on filedocumented in this encounter Care Teams Proposal Editor Relationship Specialty Start Date End Date Lewis Espino MD PCP - General Internal Medicine 11/13/16 Dipesh Kern MD PCP - General Internal Medicine 10/15/18 Becca Hinkle MD PCP - General Internal Medicine 03/23/21 documented as of this encounter
--- OUTSIDE RECORDS SUMMARY | 2024-07-10 08:27 | XMS_ITS | Encounter Summary ---
Author Organization [employer] Address [address] [place] [address] 7 [place] [address] Care Team Providers Care Packing Shed Supervisor Name Role Phone Maddie Kim MD Primary Care Provider [phone] Encounter Details Date Type Department Care Team ([facility] st Contact Info) Description 07/05/2022 Orders Only [facility] MEDICINE [address] [place], [place] [phone] Maddie Kim MD [address] [place], [place] [phone] Social History Tobacco Use Types Packs/Day Years Used Date Smoking Tobacco: Every Day Cigarettes 0.3 25.4 Started: 02/19/1999 Smokeless Tobacco: Never Alcohol Use [...] documented as of this encounter Care Teams Packing Shed Supervisor Relationship Specialty Start Date End Date Maddie Kim MD [address] [place] [address] PCP - General Family Medicine 07/12/20 Willie Gage 01/17/22 documented as of this encounter
--- OUTSIDE RECORDS SUMMARY | 2024-07-10 08:27 | XMS_ITS | Encounter Summary ---
Author Organization [employer] Address [address] [place] [address] 7t [place] [address] Care Team Providers Care Motors And Controls Tester Name Role Phone Maddie Kim MD Primary Care Provider [phone] Reason for Referral * Consultation (Urgent) - Closed Specialty Diagnoses / Procedures Referred By Sindi mejia Referred To Contact Cardiology Diagnoses Primary hypertension Tachycardia Other chest pain Maddie Kim MD [address] [place] [address] Phone: tel: fax: [facility] Referral ID Status Reason Start Date Expiration Date V isits Requested Visits Authorized [id number] Closed Specialty Services Required 05/06/2024 05/06/2025 1 1 Encounter Details Date Type Department Care Team (Late st Contact Info) Description 05/06/2024 Orders Only [facility] MEDICINE [address] [place], [place] [phone] Maddie Kim MD [address] [place], [place] [phone] Primary hypertension (Primary Dx); Tachycardia; Other chest [...] documented as of this encounter Care Teams Motors And Controls Tester Relationship Specialty Start Date End Date Maddie Kim MD [address] [place] [address] PCP - General Family Medicine 07/12/20 Willie Gage 01/17/22 documented as of this encounter
--- OUTSIDE RECORDS SUMMARY | 2024-07-10 08:27 | XMS_ITS | Encounter Summary ---
Author Organization [employer] Address [address] [facility] 7t [place] [address] Care Team Providers Care Cigar Packing Examiner Name Role Phone Maddie Kim MD Primary Care Provider [phone] Reason for Visit * Reason Onset Date Comments Med Refill 02/14/2023 Encounter Details Date Type Department Care Team ([facility] Contact Info) Description 02/14/2023 Refill [facility] [address] [place] [address] [phone] Maddie Kim MD [address] [place], [place] [phone] Social History Tobacco Use Types Packs/Day Years [...] documented as of this encounter Care Teams Cigar Packing Examiner Relationship Specialty Start Date End Date Maddie Kim MD [address] [place] [address] PCP - General Family Medicine 07/12/20 Willie Gage 01/17/22 documented as of this encounter
--- OUTSIDE RECORDS SUMMARY | 2024-07-10 08:27 | XMS_ITS | Encounter Summary ---
Author Organization [employer] Address [address] [place] [address] 7 [place] [address] Care Team Providers Care Swing Type Lathe Operator Name Role Phone Maddie Kim MD Primary Care Provider [phone] Reason for Visit * Reason Onset Date Comments Referral 05/05/2024 Encounter Details Date Type Department Care Team ([facility] Contact Info) Description 05/05/2024 Telephone [facility] MEDICINE [address] [place], [place] [phone] Maddie Kim MD [address] [place], [place] [phone] Referral Social History Tobacco Use Types Packs/Day [...] pt requesting referral that was placed for staff occupational therapist needs to say URGENT as pt has [...] documented as of this encounter Care Teams Swing Type Lathe Operator Relationship Specialty Start Date End Date Maddie Kim MD [address] [place] [address] PCP - General Family Medicine 07/12/20 Willie Gage 01/17/22 documented as of this encounter
--- OUTSIDE RECORDS SUMMARY | 2024-07-10 08:27 | XMS_ITS | Encounter Summary ---
Author Organization [employer] Address [address] [place] [address] 7 [place] [address] Care Team Providers Care Impact Hammer Operator Name Role Phone Maddie Kim MD Primary Care Provider [phone] Reason for Visit * Reason Onset Date Comments Verbal orders/ Medication question 05/08/2023 Encounter Details Date Type Department Care Team ([facility] Contact Info) Description 05/08/2023 Telephone [facility] MEDICINE [address] [place], [place] [phone] Maddie Kim MD [address] [place], [place] [phone] Verbal orders/ Medication question Social History Tobacco [...] 05/09/2023 9:54 AM EDT TC placed to [place] at the [facility] and gave VO for shelter for 3 times a week. Pt medications were also reconciled and pt reports using Viviscal OTC for hair growth and Calcium + VitD supplements. * Telephone Encounter - Toña Castillo - 05/08/2023 4:20 PM EDT Tc from [facility] requesting some verbal orders reconciliation for skill nursing 3 times a week. [place] is also requesting a call back to speak about patient's medications. documented in this encounter Plan of Treatment Not on file documented as of this encounter Visit Diagnoses Not on filedocumented in this encounter Additional Health Concerns Assessment Noted Time PHQ-9 Depression Total Score: 0 05/30/19 23 3:26 PM EDT documented as of this encounter Care Teams Impact Hammer Operator Relationship Specialty Start Date End Date Maddie Kim MD [address] [place] [address] PCP - General Family Medicine 07/12/20 Willie Gage 01/17/22 documented as of this encounter
--- OUTSIDE RECORDS SUMMARY | 2024-07-10 08:27 | XMS_ITS | Encounter Summary ---
Author Organization [facility] Address [address] [place] [address] Care Team Providers Care Meat Cutter Name Role Phone Darya Hamilton MD Primary Care Provider Ronak Beasley, Pcp Primary Care Provider Unavailabl e Darya Hamilton MD Primary Care Provider Lewis Birmingham MD Primary Care Provider Un available Dipesh Kern MD Primary Care Provide r Unavailable Becca Hinkle MD Primary Care Provider Unavailable Encounter Details Date Type Department Care Team Description 12/31/2012 Business Doc Medical Records [address] [place] [id number] Abstract, Provider Social History Tobacco Use Types [...] on filedocumented in this encounter Care Teams Meat Cutter Relationship Specialty Start Date End Date Darya [...]
--- OUTSIDE RECORDS SUMMARY | 2024-07-10 08:27 | XMS_ITS | Encounter Summary ---
Author Organization [employer] Address [address] [place] [address] 7t [place] [address] Care Team Providers Care Supervisor Lathing Name Role Phone Maddie Kim MD Primary Care Provider [phone] Reason for Visit * Reason Onset Date Comments Med Refill 05/10/2023 Encounter Details Date Type Department Care Team ([facility] st Contact Info) Description 05/10/2023 Refill [facility] MEDICINE [address] [place], [place] [phone] Maddie Kim MD [address] [place], [place] [phone] Chronic bilateral low back pain without sciatica [...] as of this encounter Care Teams Supervisor Lathing Relationship Specialty Start Date End Date Maddie Kim MD [address] [place] [address] PCP - General Family Medicine 07/12/20 Willie Gage 01/17/22 documented as of this encounter
--- OUTSIDE RECORDS SUMMARY | 2024-07-10 08:27 | XMS_ITS | Encounter Summary ---
Author Organization [facility] Address [address] [place] [address] Care Team Providers Care Dehydrogenation Operator Head Name Role Phone Darya Hamilton MD Primary [...] Care Team Description 12/30/2014 Telephone Adult Medicine [address] [address] Darya Hamilton MD Faxed Order Social History [...] on filedocumented in this encounter Care Teams Dehydrogenation Operator Head Relationship Specialty Start Date End Date Darya [...]
--- OUTSIDE RECORDS SUMMARY | 2024-07-10 08:27 | XMS_ITS | Encounter Summary ---
Author Organization [facility] Address [address] [place] [address] Care Team Providers Care Chef Manager Name Role Phone Darya Hamilton MD Primary Care Provider Ronak Beasley, Pcp Primary Care Provider Unavailabl e Darya Hamilton MD Primary Care Provider Lewis Birmingham MD Primary Care Provider Un available Dipesh Kern MD Primary Care Provide r Unavailable Becca Hinkle MD Primary Care Provider Unavailable Encounter Details Date Type Department Care Team Description 10/10/2012 Controlled Substance Contract with [facility] Medical Records [address] [place] [phone] Abstract, Provider Social History Tobacco Use Types [...] on filedocumented in this encounter Care Teams Chef Manager Relationship Specialty Start Date End Date Darya Hamilton MD PCP - General 06/30/10 03/15/15 [facility], Pcp PCP - General Internal Medicine 03/16/15 06/20/16 Darya Hamilton MD PCP - General Internal Medicine 06/21/16 11/12/16 Lewis Espino MD PCP - General Internal Medicine 11/13/16 Dipesh Kern MD PCP - General Internal Medicine 10/15/18 Becca Hinkle MD PCP - General Internal Medicine 03/23/21 documented as of this encounter
--- OUTSIDE RECORDS SUMMARY | 2024-07-10 08:27 | XMS_ITS | Encounter Summary ---
Author Organization [employer] Address [address] [place] [address] 7 [place] [address] Care Team Providers Care Centrifugal Screen Tender Name Role Phone Maddie Kim MD Primary Care Provider [phone] Reason for Visit * Reason Onset Date Comments Med Refill 03/19/2023 Encounter Details Date Type Department Care Team ([facility] Contact Info) Description 03/19/2023 Telephone [facility] MEDICINE [address] [place], [place] [phone] Maddie Kim MD [address] [place], [place] [phone] Med Refill Social History Tobacco Use Types [...] Pt agrees. MD Maddie Saravia RN; [facility] Team Nurses Caller: Unspecified (2 weeks ago) I wrote her a work excuse extending her time for remote work until 04/05/23 * Telephone Encounter - Maddie Crawford RN - 04/02/2023 3:02 PM EST Images from the original note were not included. Triage call regarding Pt portal message below. Pt continues to have symptoms of Covid. Pt was seen in [facility] 03/29/[address] Gonzalez and dx of [...] better sooner [facility]. Advised Pt will send this [...] - Diagnosed With COVID-19 by Doctor (or PERFORMANCE IMPROVEMENT DIRECTOR/PA) and Mild Symptoms * General Care Advice for COVID-19 Symptoms * Humidifier * Coughing Spells * Pain and Fever Medicines * Mild Stomach and Intestinal Symptoms During COVID-19 Illness Atiya [facility] Clinial Support (supporting Lorrie Alaniz [...] documented as of this encounter Care Teams Centrifugal Screen Tender Relationship Specialty Start Date End Date Maddie Kim MD [address] [place] [address] PCP - General Family Medicine 07/12/20 Willie Gage 01/17/22 documented as of this encounter
--- OUTSIDE RECORDS SUMMARY | 2024-07-10 08:27 | XMS_ITS | Encounter Summary ---
Author Organization [facility] Address [address] [place] [address] Care Team Providers Care Senior Qa Tester Name Role Phone Darya Hamilton MD Primary [...] Care Team Description 12/17/2012 Telephone Adult Medicine [address] [address] Darya Hamilton MD Note, Other (Medical Resources) [...] filedocumented in this encounter Care Teams Senior Qa Tester Relationship Specialty Start Date End Date Darya [...]
--- OUTSIDE RECORDS SUMMARY | 2024-07-10 08:27 | XMS_ITS | Encounter Summary ---
Author Organization [facility] Address [address] [place] [address] Care Team Providers Care Sas Developer Analyst Name Role Phone Darya Hamilton MD Primary Care Provider Ronak Beasley, Pcp Primary Care Provider Unavailabl e Darya Hamilton MD Primary Care Provider Lewis Birmingham MD Primary Care Provider Un available Dipesh Kern MD Primary Care Provide r Unavailable Becca Hinkle MD Primary Care Provider Unavailable Encounter Details Date Type Department Care Team Description 05/08/2013 Mortgage Originator Report Medical Records [address] [place] [address] Social History Tobacco Use Types Packs/Day Years [...] filedocumented in this encounter Care Teams Sas Developer Analyst Relationship Specialty Start Date End Date Darya [...]
--- OUTSIDE RECORDS SUMMARY | 2024-07-10 08:27 | XMS_ITS | Encounter Summary ---
Author Organization [employer] Address [address] [facility] 7t [place] [address] Care Team Providers Care Warehouse Shipping Supervisor Name Role Phone Maddie Kim MD Primary Care Provider [phone] Reason for Visit * Reason Comments Med Refill Encounter Details Date Type Department Care Team ([facility] st Contact Info) Description 04/05/2023 Refill [facility] [address] [place] [address] [phone] Isac Gonzalez MD [address] [place] [address] [phone] Chronic bilateral low back pain without sciatica [...] - 04/06/2023 12:46 PM EST TC to [facility] pharmacy, T3 RX written 03/29/23 for [...] documented as of this encounter Care Teams Warehouse Shipping Supervisor Relationship Specialty Start Date End Date Maddie Kim MD [address] [place] [address] PCP - General Family Medicine 07/12/20 Willie Gage 01/17/22 documented as of this encounter
--- OUTSIDE RECORDS SUMMARY | 2024-07-10 08:27 | XMS_ITS | Encounter Summary ---
Author Organization [facility] Address [address] [place] [address] Care Team Providers Care Check Airman Name Role Phone Darya Hamilton MD Primary Care Provider Unava nel [facility], Pcp Primary Care Provider Unavailabl e Darya Hamilton MD Primary Care Provider Unava Lewis Galvan MD Primary Care Provider Un available Dipesh Kern MD Primary Care Provide r Unavailable Becca Hinkle MD Primary Care Provider Unavailable Reason for Visit * Reason Onset Date Comments refill request 12/09/2012 Encounter Details Date Type Department Care Team Description 12/09/2012 Telephone [address]erm[address] [place] [phone] Khari Blas MD refill request Social History [...] on filedocumented in this encounter Care Teams Check Airman Relationship Specialty Start Date End Date Darya Hamilton MD PCP - General 06/30/10 03/15/15 [facility], [facility] PCP - General Internal Medicine 03/16/15 06/20/16 Darya Hamilton MD PCP - General Internal Medicine 06/21/16 11/12/16 Lewis Espino MD PCP - General Internal Medicine 11/13/16 Dipesh Kern MD PCP - General Internal Medicine 10/15/18 Becca Hinkle MD PCP - General Internal Medicine 03/23/21 documented as of this encounter
--- OUTSIDE RECORDS SUMMARY | 2024-07-10 08:27 | XMS_ITS | Encounter Summary ---
Author Organization [employer] Address [address] [place] [address] 7 [place] [address] Care Team Providers Care Sales Supervisor Name Role Phone Maddie Kim MD Primary Care Provider [phone] Reason for Visit * Reason Onset Date Comments c/b request 11/10/2022 Encounter Details Date Type Department Care Team ([facility] Contact Info) Description 11/10/2022 Telephone [facility] MEDICINE [address] [place] [address] [phone] Maddie Kim MD [address] [place], [place] [phone] c/b request Social History Tobacco Use Types [...] to medication reconciliation. Please contact [employer] at [phone] documented in this encounter Plan of Treatment Not on file documented as of this encounter Visit Diagnoses Diagnosis Gastroesophageal reflux disease without esophagitis Esophageal reflux documented in this encounter Additional Health Concerns Assessment Noted Time PHQ-9 Depression Total Score: 0 05/30/19 23 3:26 PM EDT documented as of this encounter Care Teams Sales Supervisor Relationship Specialty Start Date End Date Maddie Kim MD [address] [place] [id number] PCP - General Family Medicine 07/12/20 Willie Gage 01/17/22 documented as of this encounter
--- OUTSIDE RECORDS SUMMARY | 2024-07-10 08:27 | XMS_ITS | Encounter Summary ---
Author Organization [employer] Address [address] [place] [address] 7t [place] [address] Care Team Providers Care Front End Alignment Specialist Name Role Phone Maddie Kim MD Primary Care Provider [phone] Encounter Details Date Type Department Care Team ([facility] st Contact Info) Description 03/19/2023 Orders Only [facility] MEDICINE [address] [place], [place] [phone] Maddie Kim MD [address] [place], [place] [phone] Herniated lumbar intervertebral disc (Primary Dx) Social [...] documented as of this encounter Care Teams Front End Alignment Specialist Relationship Specialty Start Date End Date Maddie Kim MD [address] [place] [id number] PCP - General Family Medicine 07/12/20 Willie Gage 01/17/22 documented as of this encounter
--- OUTSIDE RECORDS SUMMARY | 2024-07-10 08:27 | XMS_ITS | Encounter Summary ---
Author Organization [facility] Address [address] [place] [address] Care Team Providers Care Manager Event Name Role Phone Darya Hamilton MD Primary Care Provider Ronak Beasley, Pcp Primary Care Provider Unavailabl e Darya Hamilton MD Primary Care Provider Lewis Birmingham MD Primary Care Provider Un available Dipesh Kern MD Primary Care Provide r Unavailable Becca Hinkle MD Primary Care Provider Unavailable Encounter Details Date Type Department Care Team Description 02/08/2015 Home Health Certification Medical Records [address] [place] [address] Social History Tobacco Use Types Packs/Day Years [...] filedocumented in this encounter Care Teams Manager Event Relationship Specialty Start Date End Date Darya [...]
--- OUTSIDE RECORDS SUMMARY | 2024-07-10 08:27 | XMS_ITS | Encounter Summary ---
Author Organization [employer] Address [address] [facility] 7t [place] [address] Care Team Providers Care Solutions Executive Security Name Role Phone Maddie Kim MD Primary Care Provider [phone] Reason for Visit * Reason Onset Date Comments Med Refill 04/04/2023 Encounter Details Date Type Department Care Team ([facility] Contact Info) Description 04/04/2023 Refill [facility] [address] [place] [address] [phone] Isac Gonzalez MD [address] [place], [place] [phone] Chronic bilateral low back pain without sciatica [...] as of this encounter Care Teams Solutions Executive Security Relationship Specialty Start Date End Date Maddie Kim MD [address] [place] [address] PCP - General Family Medicine 07/12/20 Willie Gage 01/17/22 documented as of this encounter
--- OUTSIDE RECORDS SUMMARY | 2024-07-10 08:28 | XMS_ITS | Encounter Summary ---
Author Organization [facility] Address [address] [place] [address] Care Team Providers Care Repairer Typewriter Name Role Phone Dipesh Kern MD Primary Care Provide r Unavailable Becca Hinkle MD Primary Care Provider Unavailable Encounter Details Date Type Department Care Team Description 08/26/2020 Maintenance Mechanic Helper Report Medical Records [address] [place] [address] Abstract, Provider Social History Tobacco Use Types [...] on filedocumented in this encounter Care Teams Repairer Typewriter Relationship Specialty Start Date End Date Dipesh Kern MD PCP - General Internal Medicine 10/15/18 Becca Hinkle MD PCP - General Internal Medicine 03/23/21 documented as of this encounter
--- OUTSIDE RECORDS SUMMARY | 2024-07-10 08:28 | XMS_ITS | Encounter Summary ---
Author Organization [employer] Address [address] [place] [address] 7t [place] [address] Care Team Providers Care Marine Safety Officer Name Role Phone Maddie Kim MD Primary Care Provider [phone] Encounter Details Date Type Department Care Team ([facility] st Contact Info) Description 11/14/2022 Orders Only [facility] MEDICINE [address] [place] [address] Maddie Kim MD [address] [place] [address] Social History Tobacco Use Types Packs/Day Years [...] as of this encounter Care Teams Marine Safety Officer Relationship Specialty Start Date End Date Maddie Kim MD [address] [place] [address] PCP - General Family Medicine 07/12/20 Willie Gage 01/17/22 documented as of this encounter
--- OUTSIDE RECORDS SUMMARY | 2024-07-10 08:28 | XMS_ITS | Encounter Summary ---
Author Organization [facility] Address [address] [place] [address] Care Team Providers Care Investment Accountant Name Role Phone Dipesh Kern MD Primary Care Provide r Unavailable Becca Hinkle MD Primary Care Provider Unavailable Encounter Details Date Type Department Care Team Description 08/24/2020 [facility] Medical Records [address] [place] [phone] [place] [address] Social History Tobacco Use Types Packs/Day Years [...] on filedocumented in this encounter Care Teams Investment Accountant Relationship Specialty Start Date End Date Dipesh Kern MD PCP - General Internal Medicine 10/15/18 Becca Hinkle MD PCP - General Internal Medicine 03/23/21 documented as of this encounter
--- OUTSIDE RECORDS SUMMARY | 2024-07-10 08:28 | XMS_ITS | Data Portability ---
Author Organization [place] - [facility] Pamella Flynn - [facility] Address [address] [place] [address] Care Team Providers Care Knitting Machine Tender Name Role Phone ALEXIS RANGEL Primary Care Provider ALEXIS RANEGL Referring Provider Assessment Encounter Date Assessment Date [...] By Organization Details Last Modified Time 07/24/2019 [id number] FINAL Reason: GI BLEEDING EXAM# DEPT/EXAM EXAM DATE TIME [id number] CCT - Angio Abd Plevis W-WO Contrast [...] of constipation. Report Read by: ANTONINO WEBSTER [id number] on Jun 06 2019 4:55P Transcribed by: on Jun 06 2019 4:44P Report Electronically Signed by: DR. ANTONINO WEBSTER on: Jun 06 2019 4:55P [id number] [email or web address] Not available 07/24/2019 14:04:23 Reason for Referral None Reported. Problems Name Problem SNOMED Code Status Onset Date Resolution Date Notes Provider Name and Address Organization Details Recorded Time Diarrhea 82597323 Active 2019 MD María Elena Joe [address], [place], [address], [facility] - [facility] Endoscopy 0 14:09:16 Hematochezia 200903920 Active 2019 MD María Elena Joe [address], [place], [address], [facility] 0 14:09:25 Problem Notes None recorded. Medical Equipment None Reported. Allergies Allergen ID Allergen Name Allergen Category Reaction Reaction Severity Criticality Documentation Date Start Date Code Code System Note Provider Name and Address Organization Details Recorded Time 01769 Product containin g penicilli n (product) medicatio n Not available Not available Not available 07/24/2019 91215 8001 SNOMED MD María Elena Joe [address], [place], [address], [facility] 0 14:04:50 43296 Dilaudid medicatio n Not available Not available Not available 07/24/2019 76632 3 RxNorm MD María Elena Joe [address], [place], [address], [facility] 0 14:04:55 Medications Name Sig Start [...] MD [address], [place], [address], [facility] - [facility] Endoscopy 07/24/2019 14:06:56 Which Illicit Or Recreational Drugs Have You Used? Denies Information not available 07/24/2019 How Much Tobacco Do You Smoke? No Information not available 07/24/2019 Sex: Unknown Functional Status Question Answer Note LastModified by Organization D etails LastModified Time What is your level of alcohol consumption? None Information not available 07/24/2019 Mental Status None recorded. Family History Relationship [...] SNOMED-CT Code Diagnosis ICD10 Code Diagnosis Note [id number] Gulshan Lowry MD [facility] - [facility] [address] [place] [address] 07/24/2019 08:51:48 07/28/2019 10:40:36 Hematochezia 910915984 K92.1 Chronic diarrhea 6708574 09 K52.9 Health Concerns Section Related Observation LastModified by Organization Detai ls LastModified Time None Recorded Concern Status LastModified by Organization Details LastModified Time None Recorded Advance Directives Directive None Recorded Payers Encounter Date Sequence Insurance Name Policy Number Policy Fernandez Covered Member ID Fernandez Member ID Guarantor Name 07/24/2019 1 [place] [employer] Atiya Y Onley [id number] Atiya Frost Isaias 07/24/2019 2 [place] [facility] Atiya Esparza [id number] Atiya Esparza Notes Date Note Type Note [...] abdominal pain as well. Gulshan Lowry MD [address] [place] [address],[address], [place], [address], [facility] - [facility] Endoscopy 07/24/2019 14:21:54 OBGyn Episode No OBEpisode recorded.
--- OUTSIDE RECORDS SUMMARY | 2024-07-10 08:28 | XMS_ITS | Encounter Summary ---
Author Organization [employer] Address [address] [place] [address] [address] [place] [address] Care Team Providers Care Blending Line Attendant Name Role Phone Maddie Kim MD Primary Care Provider Reason for Visit * Reason Onset Date Comments Durable Medical Equipment 03/02/2022 Encounter Details Date Type Department Care Team ([facility] st Contact Info) Description 03/02/2022 Telephone [facility] MEDICINE [address] [place] [id number] Shayna Pritchett, MAJO Durable Medical Equipment Social [...] send to [facility] Please contact pt at [phone] documented in this encounter Plan of Treatment Not on file documented as of this encounter Visit Diagnoses Not on filedocumented in this encounter Care Teams Blending Line Attendant Relationship Specialty Start Date End Date Maddie Kim MD [address] [place] [address] PCP - General Family Medicine 07/12/20 Willie Gage 01/17/22 documented as of this encounter
--- OUTSIDE RECORDS SUMMARY | 2024-07-10 08:28 | XMS_ITS | Encounter Summary ---
Author Organization [employer] Address [address] [place] [address] [address] [place] [address] Care Team Providers Care Credit Correspondence Clerk Name Role Phone Maddie Kim MD Primary Care Provider [phone] Encounter Details Date Type Department Care Team (Late st Contact Info) Description 04/11/2022 Abstract [facility] MEDICINE [address] [place] [address] Maddie Kim MD [address] [place] [address] Social History Tobacco Use Types Packs/Day Years [...] on filedocumented in this encounter Care Teams Credit Correspondence Clerk Relationship Specialty Start Date End Date Maddie Kim MD [address] [place] [address] PCP - General Family Medicine 07/12/20 Willie Gage 01/17/22 documented as of this encounter
--- OUTSIDE RECORDS SUMMARY | 2024-07-10 08:28 | XMS_ITS | Encounter Summary ---
Author Organization [employer] Address [address] [place] [address] 7 [place] [address] Care Team Providers Care Service Station Equipment Mechanic Name Role Phone Maddei Kim MD Primary Care Provider [phone] Encounter Details Date Type Department Care Team (Late st Contact Info) Description 03/30/2022 Abstract [facility] MEDICINE [address] [place] [address] Maddie Kim MD [address] [place] [address] Social History Tobacco Use Types Packs/Day Years [...] filedocumented in this encounter Care Teams Service Station Equipment Mechanic Relationship Specialty Start Date End Date Maddie Kim MD [address] [place] [address] PCP - General Family Medicine 07/12/20 Willie Gage 01/17/22 documented as of this encounter
--- OUTSIDE RECORDS SUMMARY | 2024-07-10 08:28 | XMS_ITS | Data Portability ---
Author Organization [facility], [facility] Address [address] [place] [address] Care Team Providers Care Greeter Name Role Phone JEAN-PIERRE MASON Primary Care Provider Assessment Encounter Date Assessment Date Assessment LastModified by Organization Details LastModified Time 06/12/2024 06/12/2024 Assessment: Excellent ROM. Weak quad strength, challenged with quad based therex. Plan: Continue PT @ 2x/wk for 8 weeks to decrease pain, increase ROM, optimize mechanics for functional mobility with gait and stairs, and facilitate independence with functional ADL's. Not available 06/13/2024 07:32:01 06/18/2024 06/18/2024 Assessment: Pt reached knee ROM goals. Ongoing quad weakness and control. AD used due to poor dynamic balance at this time. Plan: Continue PT @ 2x/wk for 8 weeks to decrease pain, increase ROM, optimize mechanics for functional mobility with gait and stairs, and facilitate independence with functional ADL's. Not available 06/19/2024 22:07:09 06/30/2024 06/30/2024 Assessment: Pt reached knee ROM goals. Ongoing quad weakness and control. Compensatory push up to step w R Plan: Continue PT @ 2x/wk to decrease pain, increase ROM, optimize mechanics for functional mobility with gait and stairs, and facilitate independence with functional ADL's. [email or web address] Not available 06/30/2024 11:01:17 Plan of Treatment Reminders Order Date Submit Date Provider Last Modified By Organization Details Last Modified Time Details Appointments PT FOLLOW-U P 2024 09:30A Kolton Gonzalez PTA Not available Not available Not available PT FOLLOW-U P 2024 05:00P M Damieana Fudge, [employer] Not available Not available Not available PT FOLLOW-U P 2024 05:00P M Damieana Fudge, [employer] Not available Not available Not available PT FOLLOW-U P 2024 03:30P M Damieana Fudge, [employer] Not available Not available Not available PT FOLLOW-U P 2024 06:00P M Hector Pyser, PT Not available Not available Not available PT FOLLOW-U P 2024 09:30A M Damieana Fudge, [employer] Not available Not available Not available PT FOLLOW-U P 2024 09:30A M Damieana Fudge, [employer] Not available Not available Not available PT FOLLOW-U P 2024 09:30A M Hector Pyser, PT Not available Not available Not available PT FOLLOW-U P 2024 09:30A M Hector Pyser, PT Not available Not available Not available PT FOLLOW-U P 2024 09:30A M Damchellyana Fudge, [employer] Not available Not available Not available PT FOLLOW-U P 2024 09:30A M Damieana Fudge, [employer] Not available Not available Not available RECHECK 10 2024 10:50A M Sage Walker MD Not available Not available Not available Lab None recorded . Referral None recorded . Procedures None recorded . Surgeries None recorded . Imaging XR, knee, 3 view - rm 114 3v left knee first po [email or web address] 2024 025 [email or web address] [facility], [address], [address], [place], [address], 06/10/2024 15:08:14 Medication Orders None recorded . Patient TargetsNo targets recorded. Patient InstructionsNo instructions recorded. Reason for Referral None Reported. Results Created Date Observation Date Name Description Value Unit Range Abnormal Flag Note LastModifiedBy Organization Detail LastModifiedTime 05/28/1905/27/2024 XR, knee, 4 or more view No observ ation record ed. [facility] [address], [place], [address], 05/28/2024 14:53:28 06/11/19 25 06/10/2024 XR, knee, 3 view http:/ [email or web address] ?Encry pted=s hAaTro YD8dLq bEUv6g %2BXZw aYqtaq 0bqfl% 2Fg9IQ a4ajBk vP9nXo QUaueC m3YtLR FvZlgJ JJ8mAn HZtai3 9w8915 AC0Kla n2HUqa nKiQtr MwF INTERFACE [facility] [address], [place], [address], 06/10/2024 13:28:17 06/11/19 25 06/10/2024 XR, knee, 3 view http:/ [email or web address] ?Encry pted=s hAaTro YD8dLq bEUv6g %2BXZw aYqtaq 0bqfl% 2Fg9IQ a4ajBk vP9nXo QUaueC m3YtLR FvZlgJ JJ8mAn HZtai3 5w2448 AC0Kla n2HUqa nKiQtr MwF INTERFACE [facility] [address], [place], [address], 06/10/2024 13:28:19 Result Notes None recorded. Problems Name Problem SNOMED Code Status Onset Date Resolution Date Notes Provider Name and Address Organization Details Recorded Time Fracture of ankle 84884278 Active 2023 KIM brunson [place] - [facility] 4 15:14:42 No complaints 392465566 Active Status : 'I'; Not Available [facility] 4 09:21:06 Postoperat laurence pain 197878156 Active 2024 Huma Augustin APRN [address], [place], [address] , [facility] - [facility] 5 10:10:16 Mass of joint of left wrist 9694601711614 9101 Active 2023 Cammy Ovalle, OTR/L,CHT [address], [place], [address] , [facility] 09:39:49 Problem Notes None recorded. Procedures Surgical History Date Name Laterality Status Provider Name and Address Organization Details Recorded Time 07/04/19 37357: Therapeutic Activities (1:1) cancelled Hector Pyser, PT [address], [place], [address], [facility] 07/02/2024 05:38:15 07/04/19 08867 Therapeutic Exercise (1:1) cancelled Hector Pyser, PT [address], [place], [address], [facility] 07/02/2024 05:38:15 07/04/19 98120: Manual therapy cancelled Hector Pyser, PT [address], [place], [address], [facility] 07/02/2024 05:38:15 07/01/19 12412: Therapeutic Activities (1:1) completed Hector Pyser, PT [address], [place], [address], [facility] 06/30/2024 10:41:35 07/01/19 52311 Therapeutic Exercise (1:1) completed Hector Pyser, PT [address], [place], [address], [facility] 06/30/2024 11:06:28 07/01/19 57371: Manual therapy completed Hector Pyser, PT [address], [place], [address], [facility] 06/30/2024 11:06:16 06/28/19 84250: Therapeutic Activities (1:1) cancelled Hector Pyser, PT [address], [place], [address], [facility] 06/26/2024 12:47:26 06/28/19 01035 Therapeutic Exercise (1:1) cancelled Hector Pyser, PT [address], [place], [address], [facility] 06/26/2024 12:47:26 06/28/19 79037: Manual therapy cancelled Hector Pyser, PT [address], [place], [address], [facility] 06/26/2024 12:47:26 06/25/19 03334: Therapeutic Activities (1:1) cancelled Hector Pyser, PT [address], [place], [address], [facility] 06/23/2024 16:32:14 06/25/19 53259 Therapeutic Exercise (1:1) cancelled Hector Pyser, PT [address], [place], [address], [facility] 06/23/2024 16:32:14 06/25/19 54730: Manual therapy cancelled Hector Pyser, PT [address], [place], [address], [facility] 06/23/2024 16:32:14 06/19/19 73910: Therapeutic Activities (1:1) completed Na Gonzalez, [employer] [address], [place], [address], [facility] 06/18/2024 15:01:55 06/19/19 71557 Therapeutic Exercise (1:1) completed Na Malonee, [employer] [address], [place], [address], [facility] 06/18/2024 15:01:55 06/19/19 93554: Manual therapy completed Na Malonee, [employer] [address], [place], [address], [facility] 06/18/2024 15:01:55 06/13/19 90456: Therapeutic Activities (1:1) completed Na Gonzalez, [employer] [address], [place], [address], [facility] 06/13/2024 07:27:56 06/13/19 54640 Therapeutic Exercise (1:1) completed Na Gonzalez, [employer] [address], [place], [address], [facility] 06/13/2024 07:27:26 06/13/19 70419: Manual therapy completed Na Gonzalez, [employer] [address], [place], [address], [facility] 06/13/2024 07:27:52 06/10/19 31074 Therapeutic Exercise (1:1) completed Hector Georgeser, PT [address], [place], [address], [facility] 05/31/2024 14:22:51 06/10/19 20253: Low complexity PT Eval completed Hector Pyser, PT [address], [place], [address], [facility] 05/31/2024 14:22:53 05/01/19 61209 Therapeutic Exercise (1:1) completed Hector Pyser, PT [address], [place], [address], [facility] 04/29/2024 14:50:39 05/01/19 17650: Low complexity PT Eval completed Hector Pyser, PT [address], [place], [address], [facility] 04/29/2024 14:50:41 12/04/19 24 Sports Knee 4&1 completed Juancarlos Iyer PA-C [address], [place], [address], [facility] 12/04/2023 11:27:50 06/08/19 Splint_Short Arm Fiberglass_11+ completed JUNI SHELTON [facility] 06/08/2023 13:25:25 Imaging Results Imaging Date Name Status LastModified by Organiz ation Details LastModified Time 05/27/2024 XR, knee, 4 or more view completed [facility] [address], [place], [address], 05/28/2024 14:53:28 06/10/2024 XR, knee, 3 view completed INTERFACE [facility] [address], [place], [address], 06/10/2024 13:28:17 06/10/2024 XR, knee, 3 view completed INTERFACE [facility] [address], [place], [address], 06/10/2024 13:28:19 Procedure Notes None recorded. Medical Equipment None Reported. Allergies Allergen ID Allergen Name Allergen Category Reaction Reaction Severity Criticality Documentation Date Start Date Code Code System Note Provider Name and Address Organization Details Recorded Time 894661 penicilli n G benzathin e medicatio n Not available Not available Not available 04/23/20232012 7982 RxNorm GOMEZ ROWLANDYMOUR [facility] 4 13:22:51 803725 Dilaudid medicatio n Not available Not available Not available 04/23/20232012 92461 3 RxNorm OGMEZ ROWLANDYMOUR [facility] 4 13:22:48 258449 Bactrim medicatio n Not available Not available Not available 04/23/20232020 79913 9 RxNorm JACKIEEDEL CISNEROS [facility] 5 14:12:53 Medications Name Sig Start [...] No t Available oxycodone 5 mg tablet TAKE 1 TABLET BY MOUTH EVERY 8 HOURS NEEDED SEVERE PAIN active Not Available Not Available No t Available neomycin-po lymyxin-hyd rocort 3.5 mg-10,000 unit/mL-1 % [...] No t Available Vitals Date Recorded Body height Body mass index (BMI) Body weight Systolic blood pressure Diastolic blood pressure Provider Name and Address Organization Details Last Updated DateTime 06/10/2024 157.48 cm 40.1 kg/m2 81186.73 g 110 mm[Hg] 72 mm[Hg] Андрей Beltran [facility] 13:12:32 Social History None recorded. Functional Status None recorded. Mental Status None recorded. Family History Nothing Reported. Medical History Condition Response Allergies/Hayfever N Coronary Artery Disease N Anxiety/Depression Y Breathing or lung disorders N Emphysema N Nerve Disorders N Thyroid Problems N COPD N Pacemaker N Anemia N Kidney/Bladder Problems N Vascular Disease N Heart Trouble N Heart Attack ([place]) N Gastrointestinal Disease N Cholesterol N Diabetes [...] SNOMED-CT Code Diagnosis ICD10 Code Diagnosis Note [id number] Scott Virgen MD [facility] 1st Floor [address] [place] [address] 06/08/2023 13:04:19 06/08/2023 13:29:48 Postoperative care 696945110 Z48.89 [id number] Cammy Ovalle OTR/L,CHT [facility] 1st Floor [address] [place] [address] 06/19/2023 08:53:48 06/19/2023 09:24:40 Postoperative care 865027268 Z48.89 The surgical dressing is removed and [...] Mass of tara int of left wrist 5125948424 4933785 M25.832 The patient reports her difficulti es [...] digits with full sensation throughout the hand. [id number] MD Dawn Leong 3rd floor [address] [place] [address] 07/04/2023 13:05:09 07/04/2023 14:32:21 Fracture of ankle 56688875 S82.92XD [id number] MD Dawn Perry [address] [facility] [address] [place] [address] 07/18/2023 09:13:32 08/07/2023 11:36:21 Ganglion cyst of left volar wrist 4006856629 6315799 M67.236 [id number] MD Dawn Leong 3rd floor [address] [place], [place] [address] 08/29/2023 12:57:16 09/29/2023 06:09:53 Fracture of ankle 47454367 S82.92XD [id number] LAFRED Souza 2nd floor [address] [place] [address] 12/04/2023 10:33:27 12/27/2023 15:37:25 Pain of left knee joint 5778935502 02030 M25.562 Osteoarthr itis of knee 364099316 M17.9 [id number] MD VINOD Perry [facility] [facility] [address] [place] [address] 03/14/2024 08:45:12 04/01/2024 15:12:53 Carpal tunnel syndrome of right wrist 6876250311 91964 G56.01 [id number] MD VINOD [facility] [address] [place] [address] 04/10/2024 13:38:45 04/23/2024 08:50:58 Osteoarthritis of left knee joint 4230272376 66190 M17.12 [id number] Hector Pyser, PT [facility] [address] [place] [address] 04/30/2024 16:44:12 04/30/2024 17:31:01 Osteoarthritis of knee 804989097 M17.12 [id number] Mati Trinh, DRIVING INSTRUCTOR [facility] [address] [place] [address] 05/16/2024 08:50:29 05/30/2024 04:02:27 Osteoarthritis of left knee joint 5020971538 90283 M17.12 [id number] Hector Pyser, PT [facility] [address] [place] [address] 06/09/2024 16:25:39 06/09/2024 17:48:56 History of left total knee replacement 8663962894 377778 Z96.652 Z47.1 [id number] Alonzo Singleton PA-C [facility] [address] [place] [address] 06/10/2024 12:44:32 06/21/2024 19:41:07 Knee joint prosthesis present 2709059560 02 Z96.087 [id number] Na Gonzalez, [employer] [facility] [address] [place] [address] 06/12/2024 11:16:51 06/12/2024 12:04:25 History of left total knee replacement 5028608856 065288 Z96.652 Z47.1 [id number] Na Gonzalez, [employer] [facility] [address] [place] [address] 06/18/2024 14:25:56 06/18/2024 17:18:52 History of left total knee replacement 1938458030 972995 Z96.652 Z47.1 [id number] Hector Sams, PT [facility] [address] [place] [address] 06/30/2024 10:08:37 06/30/2024 14:09:41 History of left total knee replacement 7977770363 505838 Z96.652 Z47.1 [id number] Na Gonzalez, [employer] [facility] [address] [place] [address] 07/08/2024 16:10:19 07/08/2024 17:23:29 Health Concerns Section Related Observation LastModified by Organization Detai ls LastModified Time None Recorded Concern Status LastModified by Organization Details LastModified Time None Recorded Advance Directives Directive None Recorded Payers Encounter Date Sequence Insurance Name Policy Number Policy Fernandez Covered Member ID Fernandez Member ID Guarantor Name 06/10/2024 1 [facility] - DOS ON OR AFTER 2022 - ONE CARE (MEDICARE REPLACEMENT/ADV ANTAGE - HMO) Atiyaabisai Dotson [id number] Atiya Y Dotson 06/12/2024 1 [facility] - DOS ON OR AFTER 2022 - ONE CARE (MEDICARE REPLACEMENT/ADV ANTAGE - HMO) Atiyaabisai Dotson [id number] Atiya Y Mauri 06/18/2024 1 [facility] - DOS ON OR AFTER 2022 - ONE CARE (MEDICARE REPLACEMENT/ADV ANTAGE - HMO) Atiyaabisai Dotson [id number] Atiya Y Dotson 06/30/2024 1 [facility] - DOS ON OR AFTER 2022 - ONE CARE (MEDICARE REPLACEMENT/ADV ANTAGE - HMO) Atiyaabisai Dotson [id number] Atiya Y Dotson Notes Date Note Type Note Provider [...] TESTS X-rays ordered, obtained and reviewed at [facility] today, three views, reveals maintained alignment [...] is any complications. Alonzo Singleton PA-C [address], [place], [address], [facility] 06/10/2024 14:26:17 06/12/2024 text/html Pt reports 6/10 pain upon entering therapy. Took px medication an hour prior to therapy. Na Gonzalez, [employer] [address], [place], [address], [facility] 06/13/2024 08:33:01 06/18/2024 text/html Pt reports 6/10 pain upon entering therapy. Took px medication an hour prior to therapy. Aurelio Galvez, PT [address], [place], [address], [facility] 06/20/2024 04:44:33 06/30/2024 text/html Pt reports 3-4/1 0 pain upon entering therapy. Getting better , Primary c/o is tightness Hector Sams, PT [address], [place], [address], [facility] 06/30/2024 11:07:09 OBGyn Episode No OBEpisode recorded.
--- OUTSIDE RECORDS SUMMARY | 2024-07-10 08:28 | XMS_ITS | Encounter Summary ---
Author Organization [employer] Address [address] [place] [address] 7t [place] [address] Care Team Providers Care Closet Organizer Name Role Phone Maddie Kim MD Primary Care Provider [phone] Encounter Details Date Type Department Care Team ([facility] st Contact Info) Description 04/14/2024 Orders Only [facility] [address] [place], [place] [phone] Maddie Kim MD [address] [place], [place] [phone] Social History Tobacco Use Types Packs/Day Years [...] HOSPITAL [facility] Comment:THIS TEST WAS PERFOR MED AT:[facility] [place] [phone] PARKINSON MD Immunofixation Result SEE NOTE [facility] Comment:Normal pattern. No m onoclonal proteins detected. 04/14/2024 12:4 7 PM EST 04/14/2024 12:47 PM EST us Generic External Data Provider LAB BLOOD ORDERAB LES Final Result Performing Organization Address [facility] de Phone Number [facility] [address] [place] [phone] * Cortisol Random (04/14/2024 12:47 PM EST) Pathologist [facility] Cortisol Random 5.7 ug/dL [facility] Comment:Reference Range*: Be fore 10 am 6.2-19.4 ug/dL After 5 pm 2.3-11.9 ug/dL*Please interpret above results accordingly.This test was performed using the [employer]ee[employer] chemiluminescentmethod. Values obtained from different assay methods cannotbe used interchangeably.Patients receiving fludrocortisone, prednisolone orprednisone may show artificially elevated cortisol valuesdue to cross-reactivity. 04/14/2024 12:4 7 PM EST 04/14/2024 12:47 PM EST us [employer] External Data Provider LAB BLOOD ORDERAB LES Final Result Performing Organization Address [facility] de Phone Number [facility] [address] [place] [phone] * Ferritin (04/14/2024 12:47 PM EST) Pathologist [facility] Ferritin 61 10 - 250 ng/mL [facility] 04/14/2024 12:4 7 PM EST 04/14/2024 12:47 PM EST Gil Brewer MD LAB BLOOD ORDERABLES Final Resul t Performing Organization Address [facility] Co de Phone Number [facility] [address] [place] [address] [phone] * Iron And Total Iron Binding Capacity (04/14/2024 12:47 PM EST) Pathologist [facility] Iron 77 30 - 160 mcg/dL [facility] Total Iron Binding Capacity 339 228 - 428 mcg/dL [facility] Percent Iron Saturation 23 15 - 50 % [facility] Unsaturated Iron Binding 262 ug/dL [facility] 04/14/2024 12:4 7 PM EST 04/14/2024 12:47 PM EST us Gil Brewer MD LAB BLOOD ORDERABLES Final Resul t [facility] [address] [place] [address] [phone] * (ABNORMAL) Basic Metabolic Panel (04/14/2024 12:47 PM EST) Pathologist [facility] Sodium 139 135 - 145 mmol/L [facility] [...] Kidney Disea se: Estimated GFR < 60 mL/min/1.26p3Vfycao Kidney Disease: Estimated GFR < 15 mL/min/1.73m2 Glucose 84 60 - 115 mg/dL [facility] Calcium 9.5 8.4 - 10.2 mg/dL [facility] 04/14/2024 12:4 7 PM EST 04/14/2024 12:47 PM EST us Gil Brewer MD LAB BLOOD ORDERABLES Final Resul t [facility] [address] [place] [address] [phone] * (ABNORMAL) CBC auto differential (04/14/2024 [...] Resul t Performing Organization Address [facility] Co de Phone Number [facility] [address] [place] [phone] * (ABNORMAL) Osmolality, Urine (04/14/2024 12:45 PM EST) OSMOLALITY URINE 212(L) 373 - 1,093 mosm/kg [facility] 04/14/2024 12:4 5 PM EST 04/14/2024 1:55 PM EST us Generic External Data Provider LAB URINE ORDERAB LES Final Result Performing Organization Address [facility] Co de Phone Number [facility] [address] [place] [phone] * Sodium Without creatinine, Random Urine (04/14/2024 12:45 PM EST) Sodium Urine Random 47.0 mmol/L [facility] 04/14/2024 12:4 5 PM EST 04/14/2024 1:55 PM EST us Generic External Data Provider LAB BLOOD ORDERAB LES Final Result Performing Organization Address [facility] Co de Phone Number [facility] [address] [place] [address] [place] [phone] documented in this encounter Visit Diagnoses Not on filedocumented in this encounter Additional Health Concerns Assessment Noted Time PHQ-9 Depression Total Score: 3 06/15/19 24 11:48 AM EDT documented as of this encounter Care Teams Closet Organizer Relationship Specialty Start Date End Date Maddie Kim MD [address] [place] [address] PCP - General Family Medicine 07/12/20 [facility] 01/17/22 documented as of this encounter
--- OUTSIDE RECORDS SUMMARY | 2024-07-10 08:28 | XMS_ITS | Encounter Summary ---
Author Organization [facility] Address [address] [place] [address] Care Team Providers Care Seed Cleaning Machine Operator Name Role Phone Darya Hamilton MD Primary Care Provider Unava nel [facility], [facility], Pcp Primary Care Provider Unavailabl e Darya Hamilton MD Primary Care Provider Unava Lewis Galvan MD Primary Care Provider Un available Dipesh Kern MD Primary Care Provide r Unavailable Becca Hinkle MD Primary Care Provider Unavailable Reason for Visit * Reason Onset Date Comments REFERRAL 06/17/2014 Encounter Details Date Type Department Care Team Description 06/17/2014 Telephone Urology [address] [place] [address] Wan Rosa MD REFERRAL Social History Tobacco [...] referral: incontinence Priority: Next Available Payor: Not third-alliance party related Patient did not keep their scheduled appointment with Dr. Rosa on 06/11 nor did they respond to an attempt to r/s this visit_FYI documented in this encounter Plan of Treatment Not on file documented as of this encounter Visit Diagnoses Not on filedocumented in this encounter Care Teams Seed Cleaning Machine Operator Relationship Specialty Start Date End Date Darya Hamilton MD PCP - General 06/30/10 03/15/15 [facility], [facility], [facility] PCP - General Internal Medicine 03/16/15 06/20/16 Darya Hamilton MD PCP - General Internal Medicine 06/21/16 11/12/16 Lewis Espino MD PCP - General Internal Medicine 11/13/16 Dipesh Kern MD PCP - General Internal Medicine 10/15/18 Figueroa-Becca Callaway MD PCP - General Internal Medicine 03/23/21 documented as of this encounter
--- OUTSIDE RECORDS SUMMARY | 2024-07-10 08:28 | XMS_ITS | Encounter Summary ---
Author Organization [facility] Address [address] [place] [address] Care Team Providers Care Roller Coaster Engineer Name Role Phone Darya Hamilton MD [...] Care Team Description 09/03/2014 Telephone Adult Medicine [address] [address] Darya Hamilton MD Walk In; medication problems [...] her head last week, she went to [facility] and had CT scan was told [...] on filedocumented in this encounter Care Teams Roller Coaster Engineer Relationship Specialty Start Date End Date [...]
--- OUTSIDE RECORDS SUMMARY | 2024-07-10 08:28 | XMS_ITS | Encounter Summary ---
Author Organization [employer] Address [address] [place] [address] 7t [place] [address] Care Team Providers Care Automobile Repair Service Estimator Name Role Phone Maddie Kim MD Primary Care Provider [phone] Encounter Details Date Type Department Care Team ([facility] st Contact Info) Description 07/07/2024 Orders Only [facility] MEDICINE [address] [place], [place] [phone] Maddie Kim MD [address] [place], [place] [phone] Benign hypertension (Primary Dx) Social History Tobacco Use Types [...] of this encounter Plan of Treatment Scheduled Orders Name Type Priority Associated Diagnoses Orde r Schedule Basic Metabolic Panel Lab Routine Benign hypertension Expected: 07/07/2024 (Approximate), Expires: 07/07/2025 documented as of this encounter Visit Diagnoses Diagnosis Benign hypertension- Primary Essential hypertension, benign documented in this encounter Additional Health Concerns Assessment Noted Time PHQ-9 Depression Total Score: 9 07/05/19 25 6:48 AM EDT documented as of this encounter Care Teams Automobile Repair Service Estimator Relationship Specialty Start Date End Date Maddie Kim MD [address] [place] [address] PCP - General Family Medicine 07/12/20 Willie Caring 01/17/22 documented as of this encounter
--- OUTSIDE RECORDS SUMMARY | 2024-07-10 08:28 | XMS_ITS | Continuity of Care Document ---
Author Organization [facility] Address [address] [place] [phone] Care Team Providers Care Spiritual Minister Name Role Phone HIM [facility] Primary Care Provider [phone] Assessment Encounter Date Assessment Date Assessment LastModified by Organization Details LastModified Time 07/06/2024 07/06/2024 As noted, we ghassan e called to see this patient regarding concerns of KO and dizziness concerns for hyponatremia. Evaluation in the field was performed by my felt hat mellowing machine operator colleague, as noted above, I provided [...] her typical migraines. On exam by the felt hat mellowing machine operator, the patient has no concerning neurologic findings. She is not having any chest pain or shortness of breath. We checked her sodium which was 134. Her other Blood tests were in the normal range. The patient was given one liter of normal saline IV fluid bolus and [id number] milligrams IV. She felt much better after [...] new or worsening serious symptoms, particularly worsening Ko, change in mental status, chest pain or sob [email or web address] Not available 07/06/2024 18:40:32 Plan of Treatment Reminders Order Date Submit Date Provider Last Modified By Organization Details Last Modified Time Details Appointments None recorded. Lab BMP, serum or plasma [address], [phone] 19:36:18 Referral None recorded. Procedures None recorded. Surgeries None recorded. Imaging None recorded. Medication Orders sodium chloride 0.9 % intravenous solution [email or web address] [place] [address], [address] [place] [address], [id number], 18:01:56 ketorolac 30 mg/mL injection solution [email or web address] [place] [address], [address] [place] [address], [id number], 18:01:56 Patient TargetsNo targets recorded. Patient InstructionsNo [...] Name and Address Organization Details Recorded Time 41919 Dilantin medicatio n Not available Not available Not available 02/22/2024 0 RxNorm Not Available [facility] 5 14:48:20 39146 sulfameth oxazole medicatio n Not available Not available Not available 02/22/2024 54807 RxNorm Not Available [facility] 5 14:48:20 72205 trimethop rim medicatio n Not available Not available Not available 02/22/2024 22931 RxNorm Not Available [facility] 5 10:23:13 05608 Product containin g penicilli n (product) medicatio n Not available Not available Not available 02/22/2024 43039 8001 SNOMED Not Available [facility] 5 14:48:20 06975 penicilli n G benzathin e medicatio n Not available Not available Not available 02/22/2024 7982 RxNorm Not Available [facility] 5 14:48:20 44439 penicilli n G procaine medicatio n Not [...] mm[Hg] 144 mm[Hg] 94 mm[Hg] Not Available [facility] 5 17:58:17 Social History None recorded. Functional Status None recorded. Mental Status None recorded. Family History Nothing Reported. Medical History No medical history recorded. Gynecological HistoryNo gynecological history recorded. Obstetrics History GPAL:G 0 P 0 0 0 0 Past Encounters Encounter ID Performer Location Encounter Start Date Encounter Closed Date Diagnosis/Indication Diagnosis SNOMED-CT Code Diagnosis ICD10 Code Diagnosis Note [id number] Katia Irvin MD [facility] [address] [place] [address] 06/17/2024 11:35:49 06/17/2024 13:51:22 Lightheadedness [id number] R42 [id number] DELROY DIAZ MD Main - [facility] [address] [place] [phone] 07/06/2024 17:58:16 07/07/2024 17:54:54 Acute headache 375199950 R51.9 Health Concerns Section Related Observation LastModified by Organization Detai ls LastModified Time None Recorded Concern Status LastModified by Organization Details LastModified Time None Recorded Payers Encounter Date Sequence Insurance Name Policy Number Policy Fernandez Covered Member ID Fernandez Member ID Guarantor Name 07/06/2024 1 [facility] - DOS ON OR AFTER 2022 - DUAL ELIGIBLE - NURSING HOME OPTIONS AND ONE CARE (MEDICARE REPLACEMENT/ADV ANTAGE - HMO) Atiya Dotson [id number] Atiya Dotson Notes Date Note Type Note Provider Name and Address Organization Details Recorded Time 07/06/2024 text/html CRC Nurse Triage Notes (Tami [...] (e.g., Hip, Knee)PMH Reviewed at 07/06/2024 - 17:23Allergies Reviewed at 07/06/2024 - 17:23Comments: 48 y.o female complains of Dizziness, Headache [...] signs of when to seek emergency care. Screen Machine Operator Organization Information for Sandro Kearney Legal Name: [facility] TransportationAddress: [address], CORRIE Osei , Medical Director: Jeff ACUÑA No.: [id number] Screen Machine Operator POC Test Results from Sandro Kearney [facility] (17:56:16)pH: 7.39 pH unitspCO2: 37.6 mmHgpO2: 36.2 mmHgNa: 134 mmol/LK: 4.1 mmol/LiCa: 1.29 mmol/LCl: 100 mmol/LTCO2: 22.0 mEq/LHct: 39 %Hb: 13.4 g/dLGlu: 102 mg/dLLac: 0.59 mmol/LCr: 0.61 mg/dLBUN: 15 mg/dLA mmol/LHCO3: 22.8 mmol/L ...................... ...................... ...................... ...................... ...................... ...................... ......... Screen Machine Operator Note From Sandro Kearney: This [...] questions and is agreeable to this plan. [facility] Lab Orders: BMP, serum or plasma: Performed [facility] Medication Orders: sodium chloride 0.9 % intravenous solution: Administered ketorolac 30 mg/mL injection solution: Administered ...................... ...................... ...................... ...................... ...................... ...................... ......... [facility] Consulted: Delroy Diaz.................. ...................... ...................... ...................... ...................... ...................... ......... Disposition: Fulfilled DELROY DIAZ MD [address] [place] [address],[address], [place], [address], [facility] - [facility] 07/06/2024 18:41:33 OBGyn Episode No OBEpisode recorded.
--- OUTSIDE RECORDS SUMMARY | 2024-07-10 08:28 | XMS_ITS | Encounter Summary ---
Author Organization [facility] Address [address] [place] [address] Care Team Providers Care Pin Drafter Operator Name Role Phone Darya Hamilton MD Primary Care Provider Ronak Beasley Pcp Primary Care Provider Unavailabl e Darya Hamilton MD Primary Care Provider Unava Lewis Galvan MD Primary Care Provider Un available Dipesh Kern MD Primary Care Provide r Unavailable Becca Hinkle MD Primary Care Provider Unavailable Reason for Visit * Reason Onset Date Comments Faxed Order 08/13/2014 Encounter Details Date Type Department Care Team Description 08/13/2014 Telephone Adult Medicine [address] [address] Darya Hamilton MD Faxed Order Social History Tobacco Use Types Packs/Day Years Used Date Smoking Tobacco: Every Day Cigarettes 1 Smokeless Tobacco: Never Comments:started smoking at 14 Alcohol Use Standard Drinks/Week Comments No 0 (1 standard drink = 0.6 oz pur e alcohol) Sex Assigned at Date Recorded Not on file documented as of this encounter Miscellaneous Notes * Telephone Encounter - Krystin Schmidt - 08/13/2014 11:35 AM EDT Sign supplemental order from medical resources. Fax placed in Dr Hamilton incoming. documented in this encounter Plan of Treatment Not on file documented as of this encounter Visit Diagnoses Not on filedocumented in this encounter Care Teams Pin Drafter Operator Relationship Specialty Start Date End Date aDrya Hamilton MD PCP - General 06/30/10 03/15/15 [...]
--- OUTSIDE RECORDS SUMMARY | 2024-07-10 08:28 | XMS_ITS | Encounter Summary ---
Author Organization [employer] Address [address] [place] [address] [address] [place] [address] Care Team Providers Care Bedspread Cutter Hand Name Role Phone Maddie Kim MD Primary Care Provider [phone] Reason for Visit * Reason Onset Date Comments Durable Medical Equipment 03/16/2022 Encounter Details Date Type Department Care Team ([facility] st Contact Info) Description 03/16/2022 Telephone [facility] MEDICINE [address] [place] [phone] Maddie Kim MD [address] [place], [place] [phone] Durable Medical Equipment Social History Tobacco Use [...] it can fax to her landlord at [phone]. She would like the script to be to the [facility] [employer] [place], [address] [place] [address] If any concerns please contact pt at [phone] documented in this encounter Plan of Treatment Not on file documented as of this encounter Visit Diagnoses Not on filedocumented in this encounter Care Teams Bedspread Cutter Hand Relationship Specialty Start Date End Date Maddie Kim MD [address] [place] [address] PCP - General Family Medicine 07/12/20 Willie Gage 01/17/22 documented as of this encounter
--- OUTSIDE RECORDS SUMMARY | 2024-07-10 08:28 | XMS_ITS | Encounter Summary ---
Author Organization [employer] Address [address] [place] [address] [address] [place] [address] Care Team Providers Care Tenoner Operator Name Role Phone Maddie Kim MD Primary Care Provider [phone] Encounter Details Date Type Department Care Team ([facility] st Contact Info) Description 06/26/2022 Abstract [facility] MEDICINE [address] [place], [place] [phone] Maddie Kim MD [address] [place], [place] [phone] Social History Tobacco Use Types Packs/Day Years [...] documented as of this encounter Care Teams Tenoner Operator Relationship Specialty Start Date End Date Maddie Kim MD [address] [place] [address] PCP - General Family Medicine 07/12/20 Willie Gage 01/17/22 documented as of this encounter
--- OUTSIDE RECORDS SUMMARY | 2024-07-10 08:28 | XMS_ITS | Encounter Summary ---
Author Organization [facility] Address [address] [place] [address] Care Team Providers Care Wrapping Machine Tender Name Role Phone Darya Hamilton MD Primary Care Provider Ronak Beasley, Pcp Primary Care Provider Unavailabl e Darya Hamilton MD Primary Care Provider Lewis Birmingham MD Primary Care Provider Un available Dipesh Kern MD Primary Care Provide r Unavailable Becca Hinkle MD Primary Care Provider Unavailable Encounter Details Date Type Department Care Team Description 04/15/2013 Controlled Substance Contract with [facility] Medical Records [address] [place] [id number] Abstract, Provider Social History Tobacco Use Types [...] on filedocumented in this encounter Care Teams Wrapping Machine Tender Relationship Specialty Start Date End Date Darya Hamilton MD PCP - General 06/30/10 03/15/15 [facility], Pcp PCP - General Internal Medicine 03/16/15 06/20/16 Darya Hamilton MD PCP - General Internal Medicine 06/21/16 11/12/16 Lewis Espino MD PCP - General Internal Medicine 11/13/16 Dipesh Kern MD PCP - General Internal Medicine 10/15/18 Becca Hinkle MD PCP - General Internal Medicine 03/23/21 documented as of this encounter
--- OUTSIDE RECORDS SUMMARY | 2024-07-10 08:28 | XMS_ITS | Encounter Summary ---
Author Organization [facility] Address [address] [place] [address] Care Team Providers Care Restaurant Inspector Name Role Phone Darya Hamilton MD Primary Care Provider Ronak Beasley, Pcp Primary Care Provider Unavailabl e Darya Hamilton MD Primary Care Provider Lewis Birmingham MD Primary Care Provider Un available Dipesh Kern MD Primary Care Provide r Unavailable Becca Hinkle MD Primary Care Provider Unavailable Encounter Details Date Type Department Care Team Description 06/08/2014 SENIOR MAINTENANCE MACHINIST/[facility] Report Medical Records [address] [place] [phone] Abstract, Provider Social History Tobacco Use Types [...] on filedocumented in this encounter Care Teams Restaurant Inspector Relationship Specialty Start Date End Date Darya Hamilton MD PCP - General 06/30/10 03/15/15 [facility], Pcp PCP - General Internal Medicine 03/16/15 06/20/16 Darya Hamilton MD PCP - General Internal Medicine 06/21/16 11/12/16 Lewis Espino MD PCP - General Internal Medicine 11/13/16 Dipesh Kern MD PCP - General Internal Medicine 10/15/18 Becca Hinkle MD PCP - General Internal Medicine 03/23/21 documented as of this encounter
--- OUTSIDE RECORDS SUMMARY | 2024-07-10 08:28 | XMS_ITS | Encounter Summary ---
Author Organization [employer] Address [address] [place] [address] 7 [place] [address] Care Team Providers Care Car Repairer Helper Name Role Phone Maddie Kim MD Primary Care Provider [phone] Reason for Visit * Reason Onset Date Comments Nurse Triage 07/09/2024 Encounter Details Date Type Department Care Team ([facility] Contact Info) Description 07/09/[address] [facility] MEDICINE [address] [place], [place] [phone] Maddie Kim MD [address] [place], [place] [phone] Nurse Triage Social History Tobacco Use Types [...] encounter Miscellaneous Notes * Telephone Encounter - Kasandra Salcido RN - 07/09/2024 3:08 PM EDT Call returned to Atiya Dotson via [employer] as this feature writer is remote to triage below. Reports at last visit on 07/01/24 with PCP was advised to call in if BP readings below 120/80. Per pt BP of110/70 all week. BP readings are after taking medication. Pt states believes approx. 3 hours later.Pt sates PCP advised to cut lisinopril in half, was unable to cut lisinopril in half as not scored p er [facility]. Pt continues having intermittent lightheadedness. No CP, SOB or heart palpitations. Per pt HR within 60-100. Pt advised will forward note to PCP to review and further advise primary care teamnurses of plan of care regarding HTN medications. Protocol Used: Blood Pressure - Low (Adult) Protocol-Based Disposition: See in Office or Video Visit Today Override (Final) Disposition: Discuss with PCP and Callback by Nurse Today Override Reason: Already seen and questions Positive Triage Question: * Systolic BP 90-110 while taking blood pressure medications * All higher-acuity triage questions were negative Care Advice Discussed: * Reasons To Call Back - Lightheadedness, weakness, or dizziness occurs - Systolic BP under 90 - You become worse * Telephone Encounter - Maryana Mcmahon - 07/09/2024 2:12 PM EDT Symptom: Medication Reaction Outcome: Schedule an urgent appointment (within 1 hour) or talk to a nurse or provider soon Reason: Caller denied all higher acuity questions The caller accepted this outcome. documented in this encounter Plan of Treatment Not on file documented as of this encounter Visit Diagnoses Not on filedocumented in this encounter Additional Health Concerns Assessment Noted Time PHQ-9 Depression Total Score: 9 07/05/19 25 6:48 AM EDT documented as of this encounter Care Teams Car Repairer Helper Relationship Specialty Start Date End Date Maddie Kim MD [address] [place] [address] PCP - General Family Medicine 07/12/20 Willie Gage 01/17/22 documented as of this encounter
--- OUTSIDE RECORDS SUMMARY | 2024-07-10 08:28 | XMS_ITS | Encounter Summary ---
Author Organization [employer] Address [address] [place] [address] 7 [place] [address] Care Team Providers Care Stunner And Shackler Name Role Phone Maddie Kim MD Primary Care Provider [phone] Reason for Visit * Reason Onset Date Comments Medication Question 07/09/2024 Encounter Details Date Type Department Care Team ([facility] Contact Info) Description 07/09/2024 Telephone [facility] MEDICINE [address] [place], [place] [phone] Maddie Kim MD [address] [place], [place] [phone] Medication Question Social History Tobacco Use Types [...] Telephone Encounter - Sheila Rene RN - 07/09/2024 3:30 PM EDT Please see below message. Per chart review, patient was advised to take 1/2 tab of lisinopril (total 15mg) on 06/18/24 per PCP note. Patent spoke to sports apparel internship's today and reported that [facility] is unable to break the 30mg lisinopril in half because it is not scored. RN reviewed medication module to pend lisinopril 15mg however 15mg is not an available option. Please advise,Thank you! * Telephone Encounter - Maryana Mcmahon - 07/09/2024 2:10 PM EDT Tc from pt requesting lower dose of lisinopril (Zestril) 30 MG tablet or alternative medication. documented in this encounter Plan of Treatment Not on file documented as of this encounter Visit Diagnoses Not on filedocumented in this encounter Additional Health Concerns Assessment Noted Time PHQ-9 Depression Total Score: 9 07/05/19 25 6:48 AM EDT documented as of this encounter Care Teams Stunner And Shackler Relationship Specialty Start Date End Date Maddie Kim MD [address] [place] [address] PCP - General Family Medicine 07/12/20 Willie Gage 01/17/22 documented as of this encounter
[2024-07-10 08:30] LABS: MANUAL DIFF FLAG NO
[2024-07-10 08:43] LABS: Basophils Absolute Auto 0.1 X10*3/uL (0.0-0.2); Basophils Percent Auto 0.8 % (0-2); Eosinophils Absolute Auto 0.1 X10*3/uL (0.0-0.4); Eosinophils Percent Auto 1.5 % (0-4); Hematocrit 33.8 % (37.0-47.0); Hemoglobin 10.6 g/dl (12.0-16.0); Imm Gran Abs Auto 0.01 X10*3/uL (0.00-0.03); Imm Gran Pct Auto 0.2 % (0.0-0.4); Lymphocytes Absolute Auto 2.2 X10*3/uL (1.2-4.9); Lymphocytes Percent Auto 35.4 % (20-40); Mean Corpuscular HGB Conc 31.4 g/dl (31.0-35.0); Mean Corpuscular Hemoglobin 24.1 pg (27.0-33.0); Mean Platelet Volume 9.6 fL (9.4-12.3); Monocytes Absolute Auto 0.5 X10*3/uL (0.1-1.2); Monocytes Percent Auto 7.9 % (2-11); Neutrophils Absolute Auto 3.4 x10*3/uL (2.0-8.3); Neutrophils Percent Auto 54.2 % (45-73); Platelet Count 304 X10*3/uL (160-400); Red Blood Count 4.39 X10*6/uL (4.20-5.50); Red Cell Distribution Width 14.9 % (11.0-16.0); White Blood Count 6.2 X10*3/uL (4.8-10.8)
[2024-07-10 09:08] LABS: Anion Gap 11 (12-20); Blood Urea Nitrogen 13 mg/dL (9-16); Calcium 9.3 mg/dL (8.4-10.2); Carbon Dioxide 24 mmol/L (22-29); Chloride 105 mmol/L (96-108); Estimated Glomerular Filt Rate > 60; Glucose Random 88 mg/dL (60-115); Potassium 4.3 mmol/L (3.3-5.1); Sodium 136 mmol/L (135-145)
[2024-07-10 09:17] LABS: Alanine Aminotransferase 16 U/L (0-31); Albumin Level 4.4 g/dL (3.5-5.0); Alkaline Phosphatase 84 U/L (39-117); Anion Gap 10 (12-20); Aspartate Amino Transferase 16 U/L (5-31); Bilirubin Total 0.6 mg/dL (0.0-1.0); Blood Urea Nitrogen 12 mg/dL (9-16); C Reactive Protein < 0.10 mg/dL (< or = 0.50); Calcium 9.4 mg/dL (8.4-10.2); Carbon Dioxide 23 mmol/L (22-29); Chloride 106 mmol/L (96-108); Estimated Glomerular Filt Rate > 60; Glucose Random 88 mg/dL (60-115); Iron 86 mcg/dL (30-160); Percent Iron Saturation 31 % (15-50); Potassium 4.2 mmol/L (3.3-5.1); Sodium 135 mmol/L (135-145); Total Iron Binding Capacity 279 mcg/dL (228-428); Total Protein 7.3 g/dL (6.5-8.0); Unsaturated Iron Binding 193 ug/dL
[2024-07-10 09:23] LABS: Erythrocyte Sedimentation Rate 8 MM/HR (0-20)
[2024-07-10 09:38] LABS: Ferritin 65 ng/mL (10-250); Thyroid Stimulating Hormone 0.81 uIU/mL (0.32-4.0)
[2024-07-10 09:44] LABS: Folate > 20.0 ng/mL (> or = 4.0); Vitamin B12 1858 pg/mL (200-900)
== END 2024-07-10 08:15 | disposition home or self-care (01) ==
LOC: HO.LAB 08:14
PROVIDERS: Internal Medicine Nephrology; PCP General Practice; Visit Provider Psychiatry & Neurology Psychiatry
DX: I10 Essential (primary) hypertension (principal); F31.30 Bipolar disorder, current episode depressed, mild or moderate severity, unspecified; D64.9 Anemia, unspecified; F43.10 Post-traumatic stress disorder, unspecified
CPT/HCPCS: 36415; 80048; 80053; 82607; 82728; 82746; 83540; 84443; 85025; 85652; 86140

== ENCOUNTER 2024-07-16 08:08 | Outpatient (REF) | payer OTHER, SELFPAY ==
--- OUTSIDE RECORDS SUMMARY | 2024-07-16 08:20 | XMS_ITS | Encounter Summary ---
Author Organization [employer] Address [address] [place] [address] [address] [place] [address] Care Team Providers Care Metalsmith Helper Name Role Phone Maddie Kim MD Primary Care Provider Encounter Details Date Type Department Care Team ([facility] st Contact Info) Description 07/29/2023 Orders Only [facility] MEDICINE [address] [place], [place] [phone] Maddie Kim MD [address] [place], [place] [phone] Social History Tobacco Use Types Packs/Day Years [...] documented as of this encounter Care Teams Metalsmith Helper Relationship Specialty Start Date End Date Maddie Kim MD [address] [place] [address] PCP - General Family Medicine 07/12/20 Willie Gage 01/17/22 documented as of this encounter
[2024-07-16 09:09] LABS: Alanine Aminotransferase 25 U/L (0-31); Albumin Level 4.5 g/dL (3.5-5.0); Alkaline Phosphatase 86 U/L (39-117); Anion Gap 9 (12-20); Aspartate Amino Transferase 16 U/L (5-31); Bilirubin Direct 0.2 mg/dL (0.0-0.5); Bilirubin Total 0.5 mg/dL (0.0-1.0); Blood Urea Nitrogen 6 mg/dL (9-16); Calcium 9.9 mg/dL (8.4-10.2); Carbon Dioxide 24 mmol/L (22-29); Chloride 108 mmol/L (96-108); Estimated Glomerular Filt Rate > 60; Potassium 4.4 mmol/L (3.3-5.1); Sodium 137 mmol/L (135-145); Total Protein 7.3 g/dL (6.5-8.0)
== END 2024-07-16 08:09 | disposition home or self-care (01) ==
LOC: HO.LAB 08:08
PROVIDERS: Absent Provider Podiatrist; PCP General Practice; Visit Provider Internal Medicine Nephrology
DX: B35.1 Tinea unguium (principal); E87.1 Hypo-osmolality and hyponatremia; I10 Essential (primary) hypertension
CPT/HCPCS: 36415; 80051; 80076; 82310; 82565; 84520

== ENCOUNTER 2024-07-18 12:45 | Outpatient (RCR) | payer OTHER, SELFPAY ==
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
[2024-07-07 11:54] VITALS: BP 112/74; PULSE 80; TEMP 37.1
[2024-07-07 11:58] VITALS: BMI 37.0
--- NOTE | 2024-07-07 12:44 | PC.ADMIT ---
Patient is a 48 year old female who self referred to PHP secondary to increased depression. Patient reports decreased energy and fatigue and lack of motivation to do things. Patient reports financial issues which is causing her increased stress. Patient reports she tried to work and was employed however mental health issues affected her ability to work. She stated she lost her Social Security payments for a few months. She reports social security was recently reinstated. She lives a lone and reports her only support is her daughter. Patient also has a therapist and a VNA who helps her with medication management. She has a history of attending PHP in February 2024. Patient is alert and oriented x4. She is calm and cooperative. She presented with depressed mood and anxious affect. She denied SI, no HI. She was given a copy of her safety plan if needed. Patient has a history of substance use. Denied any current use. Medications updated with Atiya and her pharmacy. I called Atiya's VNA Lauren to confirm her medication list. Awaiting phone call from Lauren.
--- NOTE | 2024-07-09 10:14 | PC.NURSE ---
Patient asked to take her Blood pressure as she c/o feeling lightheaded. She stated she gets lightheaded sometimes d/t the Zepbound medication. Patient also stated she woke up at 3 am and did not go back to sleep. BP 110/78 P 80.
[2024-07-09 10:15] VITALS: BP 110/78; PULSE 80
--- NOTE | 2024-07-18 19:12 | P.PNPSP_ITS ---
Subjective Subjective Date of Service: 07/18/24 Reason For Visit: bipolar,PTSD Mental Status Exam Mental Status Exam Narrative: restless legs Patient Appearance: Appropriate Patient Orientation: Person, Place, Time and Situation Level of Consciousness: Awake Patient Behavior: Appropriate and Cooperative Mood Description: Apprehensive Affect Description: Blunted Patient Cognition Impaired: No Ability to Follow Directions: Good Speech Pattern: Clear Diagnostics Vital Signs (24Hr): BMI result Body Mass Index 37.0 Assessment & Plan Assessment & Plan (1) Anemia: Status: Acute Code(s): D64.9 - Anemia, unspecified (2) PTSD (post-traumatic stress disorder): Status: Acute Code(s): F43.10 - Post-traumatic stress disorder, unspecified (3) Bipolar I disorder, most recent episode (or current) depressed: Status: Acute Code(s): F31.30 - Bipolar disorder, current episode depressed, mild or moderate severity, unspecified Plan resume prior dose of vraylar to treat depression as well as sonya- bipolar depression target also resume gabapentin for anxiety/mood - and insomnia fu with pcp about appropriate dosing of lisinopril saying Patient educated on: diagnosis and medication risk/benefits Informed Consent: understands Reason for contiued partial hosp. stay Substantial Risk for: med/psych decompensation Certification I certify that partial hospital treatment is medically necessary due to the symptoms and problems resulting from the patient's mental illness and the failure to treat the patient at the partial hospital level of care would likely result in the patient requiring inpatient psychiatric care which could not be prevented at a less intensive level of care. Total time managing care of this patient today ____ minutes. Discharge Plan Discharge Attending provider: Mirtha Nagy Medications: New clonazepam 0.5 mg tablet 0.5 mg PO DAILY Qty: 7 0RF Vraylar 1.5 mg capsule 1.5 mg PO BEDTIME Qty: 30 0RF bupropion HCl 100 mg tablet sustained-release 12 hr 100 mg PO QAM Qty: 30 0RF gabapentin 400 mg capsule 400 mg PO QID Qty: 120 0RF Continued prazosin 5 mg capsule 5 mg PO BEDTIME 30 Days Qty: 30 0RF cyclobenzaprine 10 mg Tablet 10 mg PO TID Rx Instructions: Patient takes PRN. celecoxib [Celebrex] 200 mg Capsule 200 mg PO BEDTIME topiramate 50 mg tablet 50 mg PO BEDTIME Qty: 30 0RF propranolol 10 mg tablet See Rx Instructions .ROUTE .COMPLEX Qty: 120 0RF Rx Instructions: take 2 tablets po daily in AM, take one tablet po daily at noon, take one tablet po daily at 5pm multivitamin Tablet 1 tab PO DAILY omeprazole 20 mg capsule,delayed release(DR/EC) 20 mg PO DAILY@0630 docusate sodium 100 mg capsule 100 mg PO BID PRN (Reason: Constipation) Rx Instructions: Patient takes PRN. cholecalciferol (vitamin D3) [Vitamin D3] 50 mcg (2,000 unit) tablet 50 mcg PO DAILY ferrous gluconate 324 mg (36 mg iron) Tablet 324 mg PO DAILY Invega Sustenna 234 mg/1.5 mL syringe 234 mg IM QMONTH Zepbound 5 mg/0.5 mL Pen Injector 5 mg SUBCUT QWEEK epinephrine 0.3 mg/0.3 mL auto-injector 1 mg IM DAILY PRN (Reason: Allergy Symptoms) minoxidil 2.5 mg tablet 1.25 mg PO DAILY Rx Instructions: Take one half a tab daily. Changed lisinopril 30 mg Tablet 20 mg PO DAILY Qty: 10 0RF Patient Comments: Decreased to 30 mg from 40 mg per patient and VNA. bisacodyl [Dulcolax (bisacodyl)] 5 mg tablet,delayed release (DR/EC) 10 mg PO BEDTIME PRN (Reason: Constipation) Qty: 180 4RF Rx Instructions: Hold for loose stools. Discontinued sennosides [Senna Lax] 8.6 mg tablet 17.2 mg PO BEDTIME Qty: 90 2RF Rx Instructions: Hold for loose stools. folic acid 1 mg tablet 1 mg PO DAILY cariprazine 3 mg capsule 1.5 mg PO DAILY cyanocobalamin (vitamin B-12) [Vitamin B-12] 500 mcg Tablet 500 mcg PO DAILY baclofen 10 mg tablet 10 mg PO TID No Action thiamine HCl (vitamin B1) [Vitamin B-1] 50 mg Tablet 50 mg PO DAILY Print Language: Chinese
== END 2024-07-18 23:59 | disposition home or self-care (01) ==
LOC: HO.PHPA 12:45
PROVIDERS: Visit Provider Psychiatry & Neurology Psychiatry
DX: F31.30 Bipolar disorder, current episode depressed, mild or moderate severity, unspecified (principal); F43.10 Post-traumatic stress disorder, unspecified; D64.9 Anemia, unspecified
CPT/HCPCS: 90791; 90853

== ENCOUNTER 2024-07-21 08:05 | Outpatient (AMB) | payer OTHER, SELFPAY ==
--- OUTSIDE RECORDS SUMMARY | 2024-07-21 08:09 | XMS_ITS | Encounter Summary ---
Author Organization [facility] Address [address] [place] [address] Care Team Providers Care Internal Consultant Name Role Phone Darya Hamilton MD Primary Care Provider Ronak Beasley, Pcp Primary Care Provider Unavailabl e Darya Hamilton MD Primary Care Provider Lewis Birmingham MD Primary Care Provider Un available Dipesh Kern MD Primary Care Provide r Unavailable Becca Hinkle MD Primary Care Provider Unavailable Encounter Details Date Type Department Care Team Description 09/25/2011 Business Doc Medical Records [address] [place] [id number] Abstract, Provider Social History Tobacco Use Types [...] on filedocumented in this encounter Care Teams Internal Consultant Relationship Specialty Start Date End Date Darya [...]
--- NOTE | 2024-07-21 08:19 | A.OFFVIS_ITS ---
Vital Signs 07/21/24 08:33 Height 5 ft 2 in Weight 238 lb BMI 43.5 Intake Visit Reasons: Colposcopy Woods Warden Required: No Information Interpreted: non-clinical & clinical Knowledge Management Advisor: Knowledge Management Advisor Present (Catherine Whittaker TEODORO) Accompanied by: Self / Same As Patient Allergies hydromorphone Allergy (Intermediate, Verified 07/21/24 08:35) Rash acyclovir Allergy (Unknown, Verified 07/21/24 08:35) Unknown insect venom [INSECT BITES] Allergy (Unknown, Verified 07/21/24 08:35) Difficulty Breathing sulfamethoxazole [From BACTRIM] Allergy (Unknown, Verified 07/21/24 08:35) Anaphylaxis trimethoprim [From BACTRIM] Allergy (Unknown, Verified 07/21/24 08:35) Anaphylaxis Penicillins [PCN] Allergy (Verified 07/21/24 08:35) Rash HPI Comments Details: Presenting for negative Pap/HPV 18 positive, HPV in high-risk/HPV [address] [facility] Medical History Bipolar I disorder, most recent episode (or current) depressed FH: total knee replacement Hx of migraines Osteoarthritis of lower back Lumbar herniated disc HTN (hypertension) Diabetes Substance dependence, daily use Morbid obesity with BMI of 40.0-44.9, adult Lumbar herniated disc Trigger finger Carpal tunnel syndrome Bowel obstruction Abdominal wall ulcer Hypertension LGSIL on Pap smear of cervix PTSD (post-traumatic stress disorder) Cocaine abuse Baclofen overdose Bipolar 1 disorder, manic, moderate Alcohol abuse Substance abuse Psychiatric diagnosis Hypertension Surgical History History of total knee replacement (TKR) H/O colonoscopy H/O gastric sleeve History of ankle surgery History of carpal tunnel surgery of right wrist Total knee replacement status H/O removal of cyst Gastric bypass status for obesity Hx of tubal ligation History of stress incontinence procedure using tension free vaginal tape History of knee replacement procedure of right knee History of cholecystectomy History of ankle surgery Family History Family/Other Breast cancer Maternal Aunt Cervical cancer Mother Stomach cancer Social History Household Members: None Household Members Other:: lives by self Housing: Apartment Do you presently have visiting nurse or other home services: Yes ([facility]ie [facility]) Unable to assess alcohol history related to: Unknown Alcohol intake: former Comment: ZHANE 04/24/24 Patient Tobacco Use Status: Current everyday Tobacco user Tobacco use type: Cigarette Cigarette Packs Per Day: 0.5 Cigarettes Per Day: 10.0 Years Smoked: 34 e-Cigarette/Vaping Use: Currently Using Second Hand Smoke Exposure: No Substance Use Type: Marijuana Advance Directives Date on File: 03/18/21 service: No 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al status: unemployed 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 We thoroughly discussed the procedure itself, including its details, alternatives, and all associated risks. This included but not limited to the following complications such as bleeding, infection, and injury to the vagina, bladder, and vessels, as well as the potential need for transfusion with all its associated risks. Subsequently, the patient sign the consent. Pap smear result: Negative Pap/HPV 18 positive, HPV 16 negative Urine test in office = Negative Procedure: During the procedure, the following steps were performed: A speculum was inserted, and acetic acid was applied. Colposcopy was conducted, allowing visualization of the transformation zone. Acetowhite lesions were identified at the 11+ 1 o'clock position. Cervical biopsies were obtained from the 11+ 1 o'clock position, followed by an endocervical curettage (ECC). Vaginoscopy of the upper vagina revealed no evidence of aceto-white lesions. Hemostasis was achieved using Monsel solution, and the patient tolerated the procedure well. Post-Procedure Instructions: The patient was advised to promptly contact the office or the after hours answering service or go to the emergency room if experiencing a temperature exceeding 100.4?F, abdominal pain, nausea/vomiting, or bleeding. Additionally, the patient was instructed to abstain from vaginal intercourse and bathtub use. The patient confirmed understanding of these instructions. Discharge Instructions: The patient was instructed to schedule a follow-up appointment in 2 weeks for further evaluation and management. Please note that this note was generated using a voice recognition program, and errors may have occurred during toggler. 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 the false positive/negative rate of a Pap smear as a screening test in detecting cervical cancer and the indication for a diagnostic test -colposcopy, biopsy, endocervical curettage. The patient verbalized understanding and agreed with the plan, all questions answered. Colposcopy, biopsy /ECC done, see procedure note Orders: Orders AMB Colposcopy Today B97.7 - Papillomavirus as the cause of diseases classified elsewhere Coding Level of Care Code Procedure Only Diagnoses HPV in female B97.7 CPT Codes Colposcopy - CPT: 95059-Tzikfhvth of cervix including upper vagina with biopsy and ECC ([id number])
[2024-07-21 08:33] VITALS: BMI 43.5
== END 2024-07-21 08:48 | disposition home or self-care (01) ==
LOC: HO.HWS 08:05
PROVIDERS: PCP General Practice; Visit Provider Obstetrics & Gynecology
DX: N93.9 Abnormal uterine and vaginal bleeding, unspecified (principal)
CPT/HCPCS: 57454; 58100

== ENCOUNTER 2024-07-21 08:05 | Outpatient (REF) | payer OTHER, SELFPAY | END 2024-07-21 08:06 | disposition home or self-care (01) | LOC: HO.LNP 08:05 | PROVIDERS: PCP General Practice; Visit Provider Obstetrics & Gynecology | DX: R87.610 Atypical squamous cells of undetermined significance on cytologic smear of cervix (ASC-US) (principal); R87.810 Cervical high risk human papillomavirus (HPV) DNA test positive; B97.7 Papillomavirus as the cause of diseases classified elsewhere | CPT/HCPCS: 57454; 58100; 88305; 88341; 88342 ==

== ENCOUNTER 2024-08-01 10:36 | Outpatient (REF) | payer OTHER, SELFPAY ==
--- NOTE | ~2024-08-01 | XR_ITS ---
EXAMINATION: XR FOOT 3 OR MORE VIEWS LEFT HISTORY: 5th digit, mechanical trauma and pain COMPARISON: There are no prior studies available for comparison. FINDINGS: Three views of the left foot are submitted. Osseous mineralization is normal. There is a nondisplaced fracture at the base of the proximal phalanx of the 5th toe. There is an old healed fracture deformity of the 5th metatarsal neck. There is no dislocation. The joint spaces are preserved. The soft tissues are unremarkable. XR/XR foot LT min 3V IMPRESSION: Nondisplaced fracture of the base of the proximal phalanx of the 5th toe. Electronically signed by: Tristan Jacobs MD 08/01/2024 11:56 AM EDT
--- OUTSIDE RECORDS SUMMARY | 2024-08-01 11:39 | XMS_ITS | Encounter Summary ---
Author Organization [employer] Address [address] [place] [address] [address] [place] [address] Care Team Providers Care Water Resource Project Manager Name Role Phone Maddie Kim MD Primary Care Provider [phone] Encounter Details Date Type Department Care Team ([facility] st Contact Info) Description 07/29/2023 Orders Only [facility] MEDICINE [address] [place], [place] [phone] Maddie Kim MD [address] [place], [place] [phone] Social History Tobacco Use Types Packs/Day Years [...] documented as of this encounter Care Teams Water Resource Project Manager Relationship Specialty Start Date End Date Maddie Kim MD [address] [place] [id number] PCP - General Family Medicine 07/12/20 Willie Gage 01/17/22 documented as of this encounter
== END 2024-08-01 10:37 | disposition home or self-care (01) ==
LOC: HO.HHCX 10:36
PROVIDERS: Visit Provider Nurse Practitioner Family
DX: M79.675 Pain in left toe(s) (principal)
CPT/HCPCS: 73630

== ENCOUNTER → 2024-08-01 10:37 | Outpatient (BNV) | payer OTHER, SELFPAY | PROVIDERS: Visit Provider Radiology Diagnostic Radiology | DX: M79.672 Pain in left foot (principal) | CPT/HCPCS: 73630 ==

== ENCOUNTER 2024-08-02 04:19 | Emergency (ER) | payer OTHER, SELFPAY ==
[2024-08-02 04:23] VITALS: BP 117/79; PULSE 77; RESP 19; TEMP 36.9; O2SAT 98; BMI 35.8
--- NOTE | 2024-08-02 06:16 | PC.NURSE ---
Pt LWBS- family mediator and MD aware. Pt became agitated with staff/raising voice over wait times. Pt educated on pts seen based on acuity level- continued to be verbally aggressive towards this RN (yelling/swearing) Pt ambulated out of the ED with steady gait on RA. No IV line established.
== END 2024-08-02 06:22 | disposition left against medical advice (07) ==
PROVIDERS: Emergency Provider Emergency Medicine
DX: F31.9 Bipolar disorder, unspecified (principal); Z53.21 Procedure and treatment not carried out due to patient leaving prior to being seen by health care provider
CPT/HCPCS: 99281; 99284

== ENCOUNTER 2024-09-17 14:10 | Outpatient (AMB) | payer OTHER, SELFPAY ==
[2024-09-17 14:17] VITALS: BMI 35.7
--- NOTE | 2024-09-17 14:17 | MHC.OFFVIS ---
Vital Signs 09/17/24 14:17 Height 5 ft 2 in Weight 195 lb BMI 35.7 Intake Visit Reasons: vaginal itching Clinical Liaison Required: No Information Interpreted: non-clinical & clinical Retail Loss Prevention Specialist: Retail Loss Prevention Specialist Present (Catherine Whittaker SUNRena) Accompanied by: Self / Same As Patient Allergies hydromorphone Allergy (Intermediate, Verified 09/17/24 14:19) Rash acyclovir Allergy (Unknown, Verified 09/17/24 14:19) Unknown insect venom (INSECT BITES) Allergy (Unknown, Verified 09/17/24 14:19) Difficulty Breathing sulfamethoxazole (From BACTRIM) Allergy (Unknown, Verified 09/17/24 14:19) Anaphylaxis trimethoprim (From BACTRIM) Allergy (Unknown, Verified 09/17/24 14:19) Anaphylaxis Penicillins (PCN) Allergy (Verified 09/17/24 14:19) Rash HPI Comments Details: Presenting complaining of vulvovaginal itching. The patient took [id number] Monistat a week ago and her symptoms have been improving, almost resolved. No vaginal odor or discharge Colposcopy pathology showed the following: Addendum #1 No atypical cells are seen on review with the patient's previous Pap test ([id number]). Electronically Signed By: Shannon Roman 08/04/24 [id number] Diagnosis A. Endocervix, curettage: Abundant squamous and scant endocervical glandular epithelium, with rare atypical squamous metaplastic cells (see comment). B. Cervix, 1:00, biopsy: Squamous mucosa with no specific change; no endocervical glandular component present. C. Cervix, 11:00, biopsy: Squamous mucosa with focal reactive changes; no endocervical glandular component present. Comment: (A): The atypical cells are insufficient for diagnosis of dysplasia and follow-up is warranted. Review of the previous negative Pap test ([id number]) is pending; addendum to follow [facility] Medical History Bipolar I disorder, most recent episode (or current) depressed FH: total knee replacement Hx of migraines Osteoarthritis of lower back Lumbar herniated disc HTN (hypertension) Diabetes Substance dependence, daily use Morbid obesity with BMI of 40.0-44.9, adult Lumbar herniated disc Trigger finger Carpal tunnel syndrome Bowel obstruction Abdominal wall ulcer Hypertension LGSIL on Pap smear of cervix PTSD (post-traumatic stress disorder) Cocaine abuse Baclofen overdose Bipolar 1 disorder, manic, moderate Alcohol abuse Substance abuse Psychiatric diagnosis Hypertension Surgical History History of total knee replacement (TKR) H/O colonoscopy H/O gastric sleeve History of ankle surgery History of carpal tunnel surgery of right wrist Total knee replacement status H/O removal of cyst Gastric bypass status for obesity Hx of tubal ligation History of stress incontinence procedure using tension free vaginal tape History of knee replacement procedure of right knee History of cholecystectomy History of ankle surgery Family History Family/Other Breast cancer Maternal Aunt Cervical cancer Mother Stomach cancer Social History Household Members: None Household Members Other:: lives by self Housing: Apartment Do you presently have visiting nurse or other home services: Yes (Willie gray) Unable to assess alcohol history related to: Unknown Alcohol intake: former Comment: ZHANE 04/24/24 Patient Tobacco Use Status: Current everyday Tobacco user Tobacco use type: Cigarette Cigarette Packs Per Day: 0.5 Cigarettes Per Day: 10.0 Years Smoked: 34 e-Cigarette/Vaping Use: Currently Using Second Hand Smoke Exposure: No Substance Use Type: Marijuana Advance Directives Date on File: 03/18/21 service: No 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al status: unemployed 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 [employer] Sexual orientation: Bisexual Female Reproductive History Menstrual Age of Menarche: 16 Review of Systems Const All systems reviewed & are unremarkable except as noted in HPI and below Physical Exam Vital Signs: BMI result Body Mass Index 35.7 General: Yes no CVA tenderness External Female Exam: normal external appearance and normal appearance of the urethra Speculum Exam - Vagina: normal appearance of the vagina, normal palpation, no lesions and no masses Speculum Exam - Cervix: normal appearance of the cervix, normal palpation, no lesions, no masses and nontender Bimanual exam- vagina & uterus: normal bimanual exam, normal palpation, uterine size normal, normal palpation, uterine shape normal, No Cervical tenderness present and non-tender Bimanual Exam- Adnexa, other: normal adnexae Back/Spine/Pelvis Back: no CVA tenderness Assessment & Plan Assessment & Plan (1) Vulvovaginitis: Code(s): N76.0 - Acute vaginitis Category: Medical Plan: Discussed with the patient the since her symptoms are almost resolved will check the results and treat accordingly. 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 Discussed with the patient the results of the pathology, showing rare atypical cells was follow-up warranted. Discussed with the patient the pathology results of the colposcopy biopsies & endocervical curettage (rare atypical cells). Recommended repeat ECC, the patient signed a consent and ECC was done without any complications. Discussed with the patient the sensitivity specificity, positive and negative predictive value in detecting cervical cancer in addition discussed the regression, persistence and progression rates. Recommended co-testing in 12 months, if cytology and or HPV are abnormal will proceed was colposcopy biopsy and endocervical curettage, if lesions gets worse or stays persistent for 2 years will proceed with loop electric excision procedure. Instructions given to the patient to schedule a co test appointment in 1 year. All questions answered the patient verbalized understanding. Coding Level of Care Code Est Pt Level 3 (45921) Diagnoses Vulvovaginitis N76.0 HPV in female B97.7
--- OUTSIDE RECORDS SUMMARY | 2024-09-17 14:52 | XMS_ITS | Encounter Summary ---
Author Organization [facility] Address [address] [place] [address] Encounters * CPT with Medical instED at [facility] on 2024-09-13 { reasonForRequest : vaginal yeast infection , patientReports : Painful urination , denies :[ Unable to void greater than 5 hours , Erection that will not go away after 2 hours , Fall or trauma that results in urinary incontinence in the setting of pain , Fall or injury that results in incontinence in the absenceof pain , Lower back pain either unilateral or bilateral, unable to void, painful urination -hematuria ], chiefComplaints : Abnormal Lab Value, Urinary Symptoms, Weakness , pmh : Bipolar Disorder, Gastroesophageal Reflux Disease (GERD), Hypertension, Anemia, Joint Replacement (e.g., Hip, Knee) , allergies : Dilantin, Sulfamethoxazole, Penicillins, Penicillin G Benzathine, Penicillin G Procaine , otherAllergies : null, painAssessment : , visitOutcome : , additionalComments : Member believes she has a yeast infection. Having itching and burning. Some brown discharge. No odor. Tried an OTC medication but it didn't work. Symptoms started Sunday. Have had these in the past. Unsure if she is having urinary symptoms- some burning but unsure. Member also mentioning that she is feeling a bit dizzy and weak. History of hyponatremia. \n\n48 y.o female \nI provided information on the mobile health provider response time and advised the patient and/or caregiver to monitor reported signs and symptoms. I discussed the warning signs of when to seek emergency care.\n } This 48-year-old female with a history including but not limited to bipolar disorder, GERD, HTN, anemia requested a visit today address brown vaginal discharge since Sunday. Patient states she believes it's a yeast infection, purchased OTC Monistat and Vagisil topical with no improvement in symptoms. Patient states she's experienced vaginal burning since starting the Vagisil. Patient contacted her OPERATOR TECHNICIAN who recommended being swabbed before being treated with oral antifungal's. Patient also endorses some dizziness this morning that lasted about an hour, concern for anemia/hyponatremia. Patient denies any abdominal or flank pain, headaches, hematuria, fevers, nausea, vomiting, diarrhea. Patient is eating and drinking normally. Allergy list on file is confirmed. Patient presents awake and alert, in no acute distress and speaking full sentences. Her vital signsare reasonably stable and she is afebrile. Nonfocal neurological exam. Normal gait. Lungs are clearthroughout auscultation. Abdomen is soft, nontender, nondistended. No CVA tenderness. No lower extremity edema. Unremarkable POC labs are uploaded. Urinalysis is not suggestive of infection, clear, pale yellow. We discussed the diagnostic uncertainty of home visits and the risk associated with this. In this case, the patient and I felt this to be an acceptable and reasonable amount of risk given the benefitof avoiding an ED visit. I instructed her to follow up with her OPERATOR TECHNICIAN to be swabbed, continue to stay well hydrated and present to the emergency department for any new or worsening severe symptoms such as uncontrollable nausea/vomiting, severe abdominal or flank pain, high fever, altered mental status. The patient was given the opportunity to ask questions and is agreeable to this plan. IV_(FLUIDS_AND/OR_MEDICATION), MEDICATION_IM, ORAL_MEDICATION, EKG, POC_BLOODWORK, GLUCOSE, WOUND_CARE Written by Artur Linda on 2024-09-13
--- OUTSIDE RECORDS SUMMARY | 2024-09-17 14:52 | XMS_ITS | Encounter Summary ---
Author Organization [facility] Address [address] [place] [address] Care Team Providers Care Cardiology Coordinator Name Role Phone Darya Hamilton MD Primary Care Provider Ronak Beasley, Pcp Primary Care Provider Unavailabl e Darya Hamilton MD Primary Care Provider Lewis Birmingham MD Primary Care Provider Un available Dipesh Kren MD Primary Care Provide r Unavailable Becca Hinkle MD Primary Care Provider Unavailable Encounter Details Date Type Department Care Team Description 09/25/2011 Business Doc Medical Records [address] [place] [id number] Abstract, Provider Social History Tobacco Use Types [...] on filedocumented in this encounter Care Teams Cardiology Coordinator Relationship Specialty Start Date End Date [...]
--- OUTSIDE RECORDS SUMMARY | 2024-09-17 14:52 | XMS_ITS | Encounter Summary ---
Author Organization [employer] Address [address] [place] [address] 7t [place] [address] Care Team Providers Care Stitcher Operator Name Role Phone Maddie Kim MD Primary Care Provider [phone] Encounter Details Date Type Department Care Team ([facility] st Contact Info) Description 07/29/2023 Orders Only [facility] MEDICINE [address] [place], [place] [phone] Maddie Kim MD [address] [place], [place] [phone] Social History Tobacco Use Types Packs/Day Years Used Date Smoking Tobacco: Every Day Cigarettes 0.5 25.6 Started: 02/19/1999 Passive Smoke Exposure: Past Smokeless [...] documented as of this encounter Care Teams Stitcher Operator Relationship Specialty Start Date End Date Maddie Kim MD [address] [place] [address] PCP - General Family Medicine 07/12/20 Willie Gage 01/17/22 documented as of this encounter
== END 2024-09-17 14:41 | disposition home or self-care (01) ==
LOC: HO.HWS 14:11
PROVIDERS: Visit Provider Obstetrics & Gynecology
DX: N76.0 Acute vaginitis (principal); B97.7 Papillomavirus as the cause of diseases classified elsewhere
CPT/HCPCS: 99213

== ENCOUNTER 2024-09-17 14:10 | Outpatient (REF) | payer OTHER, SELFPAY ==
[2024-09-17 21:50] LABS: Bacterial Vaginosis PCR NEGATIVE (Negative); Candida Group PCR DETECTED (Not Detect); Candida glab krusei PCR NOT DETECTED (Not Detect); Trichomonas vaginalis PCR NOT DETECTED (Not Detect)
[2024-09-17 22:31] LABS: CT PCR NOT DETECTED (Not Detect.); NG PCR NOT DETECTED (Not Detect.)
== END 2024-09-17 14:11 | disposition home or self-care (01) ==
LOC: HO.LNP 14:10
PROVIDERS: Visit Provider Obstetrics & Gynecology
DX: N76.0 Acute vaginitis (principal); R87.610 Atypical squamous cells of undetermined significance on cytologic smear of cervix (ASC-US); R87.810 Cervical high risk human papillomavirus (HPV) DNA test positive; B97.7 Papillomavirus as the cause of diseases classified elsewhere; Z32.02 Encounter for pregnancy test, result negative; Z98.51 Tubal ligation status
CPT/HCPCS: 81515; 87491; 87591; 88305; 99212

== ENCOUNTER 2024-10-01 14:46 | Outpatient (AMB) | payer OTHER, SELFPAY ==
--- NOTE | 2024-10-01 14:46 | MHC.OFFVIS ---
Intake Visit Reasons: ECC results Allergies hydromorphone Allergy (Intermediate, Verified 09/17/24 14:19) Rash acyclovir Allergy (Unknown, Verified 09/17/24 14:19) Unknown insect venom (INSECT BITES) Allergy (Unknown, Verified 09/17/24 14:19) Difficulty Breathing sulfamethoxazole (From BACTRIM) Allergy (Unknown, Verified 09/17/24 14:19) Anaphylaxis trimethoprim (From BACTRIM) Allergy (Unknown, Verified 09/17/24 14:19) Anaphylaxis Penicillins (PCN) Allergy (Verified 09/17/24 14:19) Rash HPI Comments Details: The patient is schedule telehealth visit post repeat ECC. 02/11 Pap smear negative HPV 18 positive 08/13 colpo/biopsy/ECC pathology showed the following: No atypical cells are seen on review with the patient's previous Pap test ([id number]). Electronically Signed By: Shannon Roman 08/04/24 2802 Diagnosis A. Endocervix, curettage: Abundant squamous and scant endocervical glandular epithelium, with rare atypical squamous metaplastic cells (see comment). B. Cervix, 1:00, biopsy: Squamous mucosa with no specific change; no endocervical glandular component present. C. Cervix, 11:00, biopsy: Squamous mucosa with focal reactive changes; no endocervical glandular component present. Comment: (A): The atypical cells are insufficient for diagnosis of dysplasia and follow-up is warranted. Review of the previous negative Pap test ([id number]) is pending; addendum to follow 09/12 ECC repeated pathology showed the following: Endocervix, curettage: Endocervical epithelium within normal limits; no atypia identified. [facility] Medical History Bipolar I disorder, most recent episode (or current) depressed FH: total knee replacement Hx of migraines Osteoarthritis of lower back Lumbar herniated disc HTN (hypertension) Diabetes Substance dependence, daily use Morbid obesity with BMI of 40.0-44.9, adult Lumbar herniated disc Trigger finger Carpal tunnel syndrome Bowel obstruction Abdominal wall ulcer Hypertension LGSIL on Pap smear of cervix PTSD (post-traumatic stress disorder) Cocaine abuse Baclofen overdose Bipolar 1 disorder, manic, moderate Alcohol abuse Substance abuse Psychiatric diagnosis Hypertension Surgical History History of total knee replacement (TKR) H/O colonoscopy H/O gastric sleeve History of ankle surgery History of carpal tunnel surgery of right wrist Total knee replacement status H/O removal of cyst Gastric bypass status for obesity Hx of tubal ligation History of stress incontinence procedure using tension free vaginal tape History of knee replacement procedure of right knee History of cholecystectomy History of ankle surgery Family History Family/Other Breast cancer Maternal Aunt Cervical cancer Mother Stomach cancer Social History Household Members: None Household Members Other:: lives by self Housing: Apartment Do you presently have visiting nurse or other home services: Yes (Willie isaac) Unable to assess alcohol history related to: Unknown Alcohol intake: former Comment: ZHANE 04/24/24 Patient Tobacco Use Status: Current everyday Tobacco user Tobacco use type: Cigarette Cigarette Packs Per Day: 0.5 Cigarettes Per Day: 10.0 Years Smoked: 34 e-Cigarette/Vaping Use: Currently Using Second Hand Smoke Exposure: No Substance Use Type: Marijuana Advance Directives Date on File: 03/18/21 service: No 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al status: unemployed 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 handed/ [employer] Sexual orientation: Bisexual Female Reproductive History Menstrual Age of Menarche: 16 Review of Systems Const All systems reviewed & are unremarkable except as noted in HPI and below Reports as per HPI and Reports no additional complaints GI Reports no additional complaints Reports no additional complaints Telehealth Telehealth Telehealth Platform: [facility] Location of provider rendering services: practice address Location of patient: address on file Patient Identification confirmed using: Name, : Yes Telehealth method: video Patient verbally consented to treatment: Yes Patient verbally consented to billing insurance company: Yes Patient informed of any privacy concerns related to visit: Yes Minutes spent on Phone/Video with Pt.: 1 Assessment & Plan Assessment & Plan (1) HPV in female: Comment: 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 Discussed with the patient the sensitivity specificity, positive and negative predictive value in detecting cervical cancer in addition discussed the regression, persistence and progression rates. Recommended co-testing in 12 months, if cytology and or HPV are abnormal will proceed was colposcopy biopsy and endocervical curettage. Instructions given to the patient to schedule a co test appointment in 1 year. All questions answered the patient verbalized understanding. I spent a total of 20 minutes reviewing the chart, talking to the patient via video and documenting in the medical record. Coding Level of Care Code Tele Est Pt Level 3 (02772) Diagnoses HPV in female B97.7
--- OUTSIDE RECORDS SUMMARY | 2024-10-01 14:52 | XMS_ITS | Patient Health Record ---
Author Organization [facility] Address [address] [place] [address] Care Team Providers Care Enterprise Architect Manager Name Role Phone Maya Wu Primary Care Provider Reshma Sky Unavailable [phone] Allergies Allergen (clinical drug ingredient) Drug/Non Drug Allergy documented on EMR Reaction Allergy Type Onset Date Status Substance with penicillin structure and antibacterial mechanism of action (substance) Penicillins rash Drug Allergy Active Reason For Referral No Information Medications Medication SIG (Take, Route, Frequency, Duration) Notes Start Date End Date Status Omeprazole 20 MG 1 capsule 30 minutes before morning meal Orally Once a day; Duration: 30 day(s) Active Lisinopril 5 MG 1 tablet Orally Once a day; Duration: 30 day(s) Active Levothyroxine Sodium 25 MCG 1 tablet in the morning on an empty stomach Orally Once a day; Duration: 30 day(s) Active Gabapentin 300 MG 1 capsule Orally Onc e a day; Duration: 30 day(s) Not-Taking LamISIL 250 MG 1 tablet Orally Once a day; Duration: 30 days Not-Takin g Depakote Not-Taking Bactrim DS 800-160 MG 1 tablet Orally ev mary 12 hrs; Duration: 3 days 06/06/2022 Not-Taking Prazosin HCl 5 MG 1 capsule at bedtime Orally Once a day; Duration: 30 day(s) Active CeleBREX 200 MG 1 capsule with food Orally Once a day; Duration: 30 day(s) Not-Taking Terbinafine HCl 250 MG 1 tablet Orally O nce a day; Duration: 90 days 07/17/2024 Active Invega Active Terbinafine HCl 250 MG 1 tablet Orally O nce a day; Duration: 90 days Active Vraylar 1.5 MG Oral; Duration: 30 Days Not-Taking Immunizations Vaccine Route Administration Date Status Comme nts Influenza Unknown 10/21/2023 Administered Social History Tobacco Use: Social History Observation Description Date Details (start date - stop date) Current Smoker NA - NA Tobacco Use/Smoking Question Answer Notes Are you a: current smoker Additional Findings: Tobacco Non-User Current no n-smoker Tobacco use other than smoking: Question Answer Notes Are you an other tobacco user? Yes V aping AUDIT-C (Standard) Question Answer Notes Did you have a drink containing alcohol in the p ast year? No Points 0 Interpretation Negative Vital Signs Blood pressure diastolic 80 mm Hg 09/26/2024 Height 5ft3in in 09/26/2024 Blood pressure systolic 122 mm Hg 09/26/2024 Weight 185 lbs 09/26/2024 BMI 32.77 kg/m2 09/26/2024 Encounters Encounter Location Date [facility] [address] 07/11/2024 Reshma Perica Pain in right toe(s) M79.674 ; Onychomycosis B35.1 and Ingrown nail L60.[address] [address] 09/26/2024 Reshma Perica Onychomycosis B35.[address] [address] 07/11/2024 Reshma Perica [address] [address] 07/11/2024 Reshma Perica [address] [address] 07/17/2024 Reshma Perica Assessments Encounter Date Diagnosis (ICD Code) Assessment Notes Treatment Notes Treatment Clinical Notes Section Notes 07/11/2024 Pain in right toe(s) (ICD-10 - M79.674) 07/11/2024 Onychomycosis (ICD-10 - B35.1) 09/26/2024 Onychomycosis (ICD-10 - B35.1) 07/11/2024 Ingrown nail (ICD-10 - L60.0) Plan Of Treatment Pending Test Test Name Order Date *Liver Function Test (LFT) 06/06/2022 *Liver Function Test (LFT) 07/11/2024 *Liver Function Test (LFT) 09/26/2024 Insurance Providers Payer Name Payer Address Payer Phone Subscriber Number Group Number Insured Name Patient Relationship to Insured Coverage Start Date Coverage End Date [facility] [employer] Claims [address] [place] [id number] Atiya Dotson Self - patient is the insured Medical (General) History Medical History History ICD Code Anxiety Arthritis Back,Hip,and Knee pain Depression Gall bladder problems High blood pressure Reflux ( GERD) thyroid ulcer Chicken pox Joint implants/screws Surgical History Surgery Date(Month/Year) gastric bypass 2009 bowel obstruction 2018 Right knee replacement 03/13 knee replacement 05/27/24
--- OUTSIDE RECORDS SUMMARY | 2024-10-01 14:52 | XMS_ITS | Encounter Summary ---
Author Organization [employer] Address [address] [place] [address] 7t [place] [address] Care Team Providers Care Cleaner Laboratory Equipment Name Role Phone Maddie Kim MD Primary Care Provider [phone] Encounter Details Date Type Department Care Team ([facility] st Contact Info) Description 07/29/2023 Orders Only [facility] MEDICINE [address] [place], [place] [phone] Maddie Kim MD 230 [place], [place] [phone] Social History Tobacco Use Types Packs/Day Years [...] as of this encounter Care Teams Cleaner Laboratory Equipment Relationship Specialty Start Date End Date Maddie Kim MD [address] [place] [address] PCP - General Family Medicine 07/12/20 Willie Gage 01/17/22 documented as of this encounter
== END 2024-10-01 15:03 | disposition home or self-care (01) ==
LOC: HO.HWS 14:46
PROVIDERS: Visit Provider Obstetrics & Gynecology
DX: R87.810 Cervical high risk human papillomavirus (HPV) DNA test positive (principal)
CPT/HCPCS: 99213

== ENCOUNTER 2024-12-10 01:57 | Emergency (ER) | payer OTHER, SELFPAY ==
[2024-12-10 01:58] VITALS: BP 127/86; PULSE 98; RESP 18; TEMP 36.6; O2SAT 98; BMI 32.4
[2024-12-10 03:03] LABS: Hematocrit 40.0 % (37.0-47.0); Hemoglobin 12.9 g/dl (12.0-16.0); Imm Gran Abs Auto 0.02 X10*3/uL (0.00-0.03); Imm Gran Pct Auto 0.2 % (0.0-0.4); Lymphocytes Absolute Auto 2.2 X10*3/uL (1.2-4.9); MANUAL DIFF FLAG NO; Mean Corpuscular HGB Conc 32.3 g/dl (31.0-35.0); Mean Corpuscular Hemoglobin 24.6 pg (27.0-33.0); Mean Corpuscular Volume 76.3 fL (80.0-98.0); NRBC Abs Auto 0.000 X10*3/uL (0.0-0.012); NRBC Pct Auto 0.0 /100WBC (0.0-0.2); Platelet Count 299 X10*3/uL (160-400); Red Blood Count 5.24 X10*6/uL (4.20-5.50); White Blood Count 8.5 X10*3/uL (4.8-10.8)
[2024-12-10 03:04] LABS: Appearance Urine Clear; Glucose Urine UA Negative (Negative); PH 6.5 (5.0-9.0); Specific Gravity - Urine <= 1.005 (1.005-1.025)
[2024-12-10 03:16] LABS: Cannabinoid Screen Urine POSITIVE (Not Detect)
[2024-12-10 03:17] LABS: Alanine Aminotransferase 21 U/L (0-31); Albumin Level 4.9 g/dL (3.5-5.0); Anion Gap 14 (12-20); Aspartate Amino Transferase 21 U/L (5-31); Blood Urea Nitrogen 5 mg/dL (9-16); Calcium 9.8 mg/dL (8.4-10.2); Carbon Dioxide 21 mmol/L (22-29); Chloride 108 mmol/L (96-108); Creatinine Clr Calc Pharmacy 77.6; Estimated Glomerular Filt Rate > 60; Potassium 3.7 mmol/L (3.3-5.1); Sodium 139 mmol/L (135-145); Total Protein 7.9 g/dL (6.5-8.0)
--- OUTSIDE RECORDS SUMMARY | 2024-12-10 03:18 | XMS_ITS | Continuity of Care Document ---
Author Name [facility] Address [address] [place] [address] Organization Unknown Address [address] [place] [address] Medications No known medications Problems No known problems
--- OUTSIDE RECORDS SUMMARY | 2024-12-10 03:18 | XMS_ITS | Encounter Summary ---
Author Organization [employer] Address [address] [place] [address] 7 [place] [address] Care Team Providers Care Live Truck Operator Name Role Phone Maddie Kim MD Primary Care Provider [phone] Reason for Visit * Reason Onset Date Comments c/b request 11/10/2022 Encounter Details Date Type Department Care Team ([facility] Contact Info) Description 11/10/[address] [facility] MEDICINE [address] [place] [phone] Maddie Kim MD [address] [place], [place] [phone] c/b request Social History Tobacco Use Types Packs/Day Years Used Date Smoking Tobacco: Former Cigarettes 0.3 25.8 S tarted: 02/19/1999 Passive Smoke Exposure: Past [...] to medication reconciliation. Please contact justus at [phone] documented in this encounter Plan of Treatment Not on file documented as of this encounter Visit Diagnoses Diagnosis Gastroesophageal reflux disease without esophagitis Esophageal reflux documented in this encounter Additional Health Concerns Assessment Noted Time PHQ-9 Depression Total Score: 0 05/30/19 23 3:26 PM EDT documented as of this encounter Care Teams Live Truck Operator Relationship Specialty Start Date End Date Maddie Kim MD [address] [place] [address] PCP - General Family Medicine 07/12/20 Willie Gage 01/17/22 documented as of this encounter
--- OUTSIDE RECORDS SUMMARY | 2024-12-10 03:18 | XMS_ITS | Encounter Summary ---
Author Organization [employer] Address [address] [place] [address] 7 [place] [address] Care Team Providers Care Prick Stitcher Name Role Phone Maddie Kim MD Primary Care Provider [phone] Reason for Visit * Reason Onset Date Comments Call Back Request 07/26/2023 Encounter Details Date Type Department Care Team ([facility] Contact Info) Description 07/26/2023 Telephone [facility] MEDICINE [address] [place], [place] [phone] Maddie Kim MD 230 [place], [place] [phone] Call Back Request Social History Tobacco Use Types Packs/Day Years Used Date Smoking Tobacco: Every Day Cigarettes 0.5 25.8 Started: 02/19/1999 Passive Smoke Exposure: Past Smokeless [...] 07/27/2023 9:31 AM EDT Tc returned to [place], questioning pt.'s risperidone inj rx on med list they received. Looking back in chart, this was discontinued after inpatient hosp in 2020 due to noncompliance with injections. This was the last time it was prescribed. [place] is requesting this is taken off our med list for accuracy, thank you! * Telephone Encounter - Zach Carlson - 07/26/2023 4:12 PM EDT Tc from [place] with Willie Gage requesting a call back for a med reconciliation. Please contact Georgie at [phone]. documented in this encounter Plan of Treatment Not on file documented as of this encounter Visit Diagnoses Not on filedocumented in this encounter Additional Health Concerns Assessment Noted Time PHQ-9 Depression Total Score: 3 06/15/19 24 11:48 AM EDT documented as of this encounter Care Teams Prick Stitcher Relationship Specialty Start Date End Date Maddie Kim MD [address] [place] [address] PCP - General Family Medicine 07/12/20 Willie Gage 01/17/22 documented as of this encounter
--- OUTSIDE RECORDS SUMMARY | 2024-12-10 03:18 | XMS_ITS | Encounter Summary ---
Author Organization [employer] Address [address] [place] [address] 7 [place] [address] Care Team Providers Care Molding Machine Operator Name Role Phone Maddie Kim MD Primary Care Provider [phone] Encounter Details Date Type Department Care Team (Late st Contact Info) Description 04/11/2022 Abstract [facility] MEDICINE [address] [place] [address] Maddie Kim MD [address] [place] [address] Social History Tobacco Use Types Packs/Day Years Used Date Smoking Tobacco: Every Day Cigarettes 0.3 25.8 Started: 02/19/1999 Smokeless Tobacco: Never Alcohol Use [...] on filedocumented in this encounter Care Teams Molding Machine Operator Relationship Specialty Start Date End Date Maddie Kim MD 230 [place] [address] PCP - General Family Medicine 07/12/20 Willie Gage 01/17/22 documented as of this encounter
--- OUTSIDE RECORDS SUMMARY | 2024-12-10 03:18 | XMS_ITS | Encounter Summary ---
Author Organization [employer] Address [address] [place] [address] 7 [place] [address] Care Team Providers Care Parts Fabricator Name Role Phone Maddie Kim MD Primary Care Provider [phone] Reason for Visit * Reason Onset Date Comments FYI 02/15/2024 Encounter Details Date Type Department Care Team ([facility] Contact Info) Description 02/15/2024 Telephone [facility] MEDICINE [address] [place], [place] [phone] Maddie Kim MD [address] [place], [place] [phone] FY Social History Tobacco Use Types Packs/Day Years Used Date Smoking Tobacco: Former Cigarettes 0.5 25.8 S tarted: 02/19/1999 Passive Smoke Exposure: [...] any questions you can contact Lauren at [phone]. documented in this encounter Plan of Treatment Not on file documented as of this encounter Visit Diagnoses Not on filedocumented in this encounter Additional Health Concerns Assessment Noted Time PHQ-9 Depression Total Score: 3 06/15/19 24 11:48 AM EDT documented as of this encounter Care Teams Parts Fabricator Relationship Specialty Start Date End Date Maddie Kim MD [address] [place] [address] PCP - General Family Medicine 07/12/20 Willie Gage 01/17/22 documented as of this encounter
--- OUTSIDE RECORDS SUMMARY | 2024-12-10 03:18 | XMS_ITS | Encounter Summary ---
Author Organization [facility] Address [address] [place] [address] Encounters * CPT with Medical [facility] at [place] on 2024-10-06 { reasonForRequest : Patient has back and left knee pain. , patientReports : , denies :[ Worst Headache of life , New onset of vision loss , Sudden onset -unilateral weakness/gait disturbance , Fall with head strike and altered LOC , New onset of Slurred speech or difficulty finding words , Sudden Mental status changes , Head pain with fever chills and neck pain , Seizure activity ], chiefComplaints : Back Pain, Extremity Pain , pmh : Bipolar Disorder, Gastroesophageal Reflux Disease (GERD), Hypertension, Anemia, Joint Replacement (e.g., Hip, Knee) , allergies : Dilantin, Sulfamethoxazole, Penicillins, Penicillin G Benzathine, Penicillin G Procaine , otherAllergies :null, painAssessm ent : , visitOutcome : , additionalComments : Additional PMH: Hyponatremia\n49 y.o female complains of Back Pain, Extremity Pain\nPatient calling reporting bad back pain and L knee pain. Patient reports she had total knee replacement in May on Lknee, and is waiting to start PT again. Patient reports she was seen yesterday and given a shot of Toradol and some Tylenol. Patient reports Toradol shot did help. Patient states she tried a muscle relaxer and Tylenol with no relief in pain this afternoon. Patient reports back pain started the nextday after lifting something heavy. Patient reports pain is in her upper back. Patient denies any new loss of control of her bladder or bowel, patient denies any numbness or tingling. Patient denies fever or chills, or headache. I provided information on the mobile health provider response time and advised the patient and/or caregiver to monitor reported signs and symptoms. I discussed the warningsigns of when to seek emergency care -H. Cordova, RN } Encountered patient conscious, solar and ambulatory. 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 Patient expresses she was seen by the [facility] service on 10/05/24 and was treated with Toradol, was looking for a repeat dose today to hold her over until her primary care appointment on 10/07/24. BMP performed, values uploaded via [facility]. Skin warm, dry and of appropriate color for ethnicity. Head and neck, free of trauma and edema. -JVD. Breath sounds present clear and equal bilaterally. Abdomen is soft, nontender and non-distended. Extremities free of trauma edema. [facility] contacted: reports multiple administrations of Toradol is not part of the [facility] programs standard practice and is also likely to be detrimental to patient. [facility] encourages patient to continue to take her prescribed Flexeril and Tylenol and to also request evaluation by a nightclub manager while at her primary care appointment tomorrow. Patient was additionally encouraged to seek further medical attention including 911 if she were to develop chest pain and shortness of breath or uncontrollable pain. Patient verbalizes understanding of the plan and states she is comfortable remaining home today. IV_(FLUIDS_AND/OR_MEDICATION), MEDICATION_IM, ORAL_MEDICATION, EKG, WOUND_CARE, ORTHOSTATIC_VITAL_SIGNS Written by Medical [facility] on 2024-10-06
--- OUTSIDE RECORDS SUMMARY | 2024-12-10 03:18 | XMS_ITS | Encounter Summary ---
Author Organization [employer] Address [address] [place] [address] 7t [place] [address] Care Team Providers Care Tobacco Drying Machine Operator Name Role Phone Maddie Kim MD Primary Care Provider [phone] Encounter Details Date Type Department Care Team ([facility] st Contact Info) Description 01/27/2022 Telephone [facility] MEDICINE 230 [place], [place] [phone] Maddie Kim MD [address] [place], [place] [phone] Social History Tobacco Use Types Packs/Day Years [...] on filedocumented in this encounter Care Teams Tobacco Drying Machine Operator Relationship Specialty Start Date End Date Maddie Kim MD [address] [place] [address] PCP - General Family Medicine 07/12/20 Willie Gage 01/17/22 documented as of this encounter
--- OUTSIDE RECORDS SUMMARY | 2024-12-10 03:18 | XMS_ITS | Encounter Summary ---
Author Organization [employer] Address [address] [place] [address] 7 [place] [address] Care Team Providers Care Fishing Instructor Name Role Phone Maddie Kim MD Primary Care Provider [phone] Reason for Visit * Reason Onset Date Comments Medication Question 08/01/2024 Encounter Details Date Type Department Care Team ([facility] Contact Info) Description 08/01/2024 Telephone [facility] MEDICINE 230 [place], [place] [phone] Maddie Kim MD 230 [place], [place] [phone] Medication Question Social History Tobacco Use Types [...] Miscellaneous Notes * Telephone Encounter - Maryana Mcmhaon - 08/01/2024 1:38 PM EDT Tc from pt requesting if pcp can prescribe pain medication. Pt seen today 08/01 at the [facility], provider: Jayleen Mckeon. documented in this encounter Plan of Treatment Not on file documented as of this encounter Visit Diagnoses Not on filedocumented in this encounter Additional Health Concerns Assessment Noted Time PHQ-9 Depression Total Score: 9 07/05/19 25 6:48 AM EDT documented as of this encounter Care Teams Fishing Instructor Relationship Specialty Start Date End Date Maddie Kim MD [address] [place] [address] PCP - General Family Medicine 07/12/20 Willie Gage 01/17/22 documented as of this encounter
--- OUTSIDE RECORDS SUMMARY | 2024-12-10 03:18 | XMS_ITS | Encounter Summary ---
Author Organization [employer] Address [address] [place] [address] 7t [place] [address] Care Team Providers Care Fish Farm Laborer Name Role Phone Maddie Kim MD Primary Care Provider [phone] Encounter Details Date Type Department Care Team ([facility] st Contact Info) Description 02/22/2024 Orders Only [facility] MEDICINE [address] [place], [place] [phone] Maddie Kim MD 230 [place], [place] [phone] Social History Tobacco Use Types Packs/Day Years [...] as of this encounter Care Teams Fish Farm Laborer Relationship Specialty Start Date End Date Maddie Kim MD [address] [place] [address] PCP - General Family Medicine 07/12/20 Willie Gage 01/17/22 documented as of this encounter
--- OUTSIDE RECORDS SUMMARY | 2024-12-10 03:18 | XMS_ITS | Data Portability ---
Author Organization [employer] [facility], [facility] Address [address] [place] [address] Care Team Providers Care Medication Aid Name Role Phone HIM CCA OTHER Unavailable Primary Care Provider Assessment Encounter Date Assessment Date Assessment LastModified by Organization Details LastModified Time 09/13/2024 09/13/2024 As noted, we ghassan e called to see this patient regarding concerns of vaginal discharge. Evaluation in the field was performed by my calcine furnace loader colleague, as noted above, I provided real-time direction and supervision for this visit. The evaluation revealed 48y F with vaginal discharge and burning, also some dizziness this am w h/o hyponatremia in past. TRied OTC yeast cream, which caused burning. UA and POC lytes unremarkable. Impression: vaginal discharge Plan: Recommend in office exam for testing and to r/o other etiologies Primary care, consider f/u as able for exam and vaginal swab Disposition: We discussed the diagnostic uncertainty of home visits and the risk associated with this. In this case, the patient and I felt this to be an acceptable and reasonable amount of risk given the benefit of avoiding an ED visit. We discussed the need to seek care urgently/emergentl y in the setting of any new or worsening serious symptoms, particularly worsening dizziness, shob, chest pain, confusion, falls, severe, systemic symptoms [email or web address] Not available 09/13/2024 14:04:03 10/05/2024 10/05/2024 Ms. Dotson is a 49 yo F with Bipolar Disorder, Gastroesophageal Reflux Disease (GERD), Hypertension, Anemia, Joint Replacement (e.g., Hip, Knee) who is calling today about back pain. Per patient and medic, has not been as active because of a new job. Didn't expect to be as active at the new job. Now with muscle aches. Does have known herniated disc in lower back. H/o hypoNa, no renal history. 7/10 upper and mid/lower back. Tried 1g of tylenol and muscle relaxants earlier this morning. Vitals stable with medic. Counseled about heating, stretching, massage. Per patient and medic, no new injuries. No new falls or injuries. No fevers and not on AC. Sx sound consistent with muscle strain. Has had previously and has responded well to toradol. No other red flag sx. No indications for imaging warranted. No new motor/sensory deficits. Counseled on safe use of flexeril that she already has prescribed. Plan for 15mg IM toradol and 1g tylenol and safe med use. I provided real -time medical direction via phone for this encounter, and was available for additional phone based assistance as needed. I have reviewed and agree with the Assessment and Plan as documented by the Machinist Outside. We discussed the diagnostic uncertainty of home visits and the risk associated with this. In this case the patient and I felt this to be an acceptable and reasonable amount of risk given the benefit of avoiding an ED visit. The patient given the opportunity to ask questions. Follow up with primary care was recommended, as needed. Advised if develops CP/severe SOB/turning blue/uncontrolled n/v/d or black/bloody emesis or stool/ AMS/ syncope/ high fever unresponsive to APAP to call 911- verbalized understanding of instruction. [email or web address] Not available 10/05/2024 15:19:23 10/06/2024 10/06/2024 Ms. Dotsno is a 49 yo F with Bipolar Disorder, Gastroesophageal Reflux Disease (GERD), Hypertension, Anemia, Joint Replacement (e.g., Hip, Knee) who is calling again today about back pain. Per patient and medic, has not been as active because of a new job. Didn't expect to be as active at the new job. Now with muscle aches. Does have known herniated disc in lower back. H/o hypoNa, no renal history. Reviewed appropriate use of Toradol and why she is not taking NSAIDs. She explained that she has a h/o GIB and gastric ulcers with NSAIDs and was told to not take them. She did not know Toradol was an NSAID. Advised to follow up with PCP for topical creams, PT referral and possible referral to PM&R. NSAIDs added to allergy list. I provided real -time medical direction via phone for this encounter, and was available for additional phone based assistance as needed. I have reviewed and agree with the Assessment and Plan as documented by the Machinist Outside. We discussed the diagnostic uncertainty of home visits and the risk associated with this. In this case the patient and I felt this to be an acceptable and reasonable amount of risk given the benefit of avoiding an ED visit. The patient given the opportunity to ask questions. Follow up with primary care was recommended, as needed. Not available 10/06/2024 15:18:51 10/26/2024 10/26/2024 I provided real -time medical direction via phone for this encounter, and was available for additional phone based assistance as needed. I have reviewed and agree with the Assessment and Plan as documented by the Machinist Outside. We discussed the diagnostic uncertainty of home visits and the risk associated with this. In this case the patient and I felt this to be an acceptable and reasonable amount of risk given the benefit of avoiding an ED visit. The patient given the opportunity to ask questions. Atiya is a 49-year-old female with a history including but not limited to bipolar disorder, GERD, HTN, anemia, herniated discs and chronic lower back pain- calling with flare of back pain not responding to her muscle relaxants or Tylenol. She denies any new injury. She has been more active having just returned to school and may have overused back. Denies any saddle parasthesia, numbness or tingling. ROM wnl. Denies blood thinners or CKD. Lab review reveals Creat 0.6. Reports intolerance to oral NSAIDS but has tolerated Toradol in the past. Toradol 15mg IM x 1 prescribed. Advised to rest, ice/heat for comfort- f/u with PCP. ED red flags reviewed. Advised if develops CP/severe SOB/turning blue/uncontrolled n/v/d or black/bloody emesis or stool/ AMS/ syncope/ hi fever unresponsive to APAP to call 911- verbalized understanding of instruction [email or web address] Not available 10/26/2024 18:03:11 11/22/2024 11/22/2024 I provided real -time medical direction via phone for this encounter and was available for additional phone-based assistance as needed. I have reviewed and agree with the Assessment and Plan as documented by the Machinist Outside. Patient given the opportunity to ask questions. Our service contacted for an assessment of: Migraine KO As per above, patient with acute onset of MHA this am. Has taken usual meds. No NSAIDs today. Has tolerated Toradol in the past. Per calcine furnace loader on the scene, VSS, AF Please read the calcine furnace loader note for their exam findings. Impression: Plan: Toradol 30 mg IM times one. F/u with PCP. Allergies: Reviewed PCP f/u: We discussed the [...] particularly fever chills lightheadedness altered mental status [email or web address] Not available 11/22/2024 11:23:03 Plan of Treatment Reminders Order Date Submit Date Provider Last Modified By Organization Details Last Modified Time Details Appointments None recorded. Lab BMP, serum or plasma 2024 025 [facility], [address] [place] [address], [id number] 16:35:51 BMP, serum or plasma 2024 025 [facility], [address] [place] [address], [id number] 14:22:54 urinalysis, dipstick 2024 025 [facility], [address] [place] [address], [id number] 14:22:31 Referral None recorded. Procedures None recorded. Surgeries None recorded. Imaging None recorded. Medication Orders ketorolac 30 mg/mL injection solution 2024 025 [facility], [address] [place] [address], [id number], 11:19:38 ketorolac 30 mg/mL injection solution 2024 025 [email or web address] [facility], [address] [place] [address], [id number], 09/07/202 5 17:39:06 acetaminoph en 500 mg tablet [id number], [phone] [place], [phone], 5 15:18:54 ketorolac 30 mg/mL injection solution [address] [facility], [address] [place] [address], [id number], 5 15:18:54 Patient TargetsNo targets recorded. Patient InstructionsNo instructions [...] Name and Address Organization Details Recorded Time 52117 Dilantin medicatio n Not available Not available Not available 02/22/2024 67115 0 [facility] 5 14:48:20 74958 sulfameth oxazole medicatio n Not available Not available Not available 02/22/2024 08619 Rx[facility] 5 14:48:20 94940 trimethop rim medicatio n Not available Not available Not available 02/22/2024 19189 Rx[facility] Available [facility] 5 10:23:13 88189 Product containin g penicilli n (product) medicatio n Not available Not available Not available 02/22/2024 68518 8001 SNOMED Not Available [facility] 5 14:48:20 35844 penicilli n G benzathin e medicatio n Not available Not available Not available 02/22/2024 7982 RxNorm Not Available [facility] 5 14:48:20 73267 penicilli n G procaine medicatio n Not available Not available Not available 02/22/2024 7983 RxNorm [facility] 5 14:48:20 49014 Non-stero idal anti-infl ammatory agent (substanc e) medicatio n other Not available high 10/06/2024 51404 5008 SNOMED H/o GIB and gastr ic ulcer s with all NSAID s - told not to take Fawn Coelho MD [address] [facility],[address], [place], [phone], [facility] - [employer] 5 15:15:41 Medications Name Sig Start Date Stop Date [...] t Available Vitals Date Recorded Heart rate Oxygen saturation Oxygen saturation in Arterial blood by Pulse oximetry Body temperature Respiratory rate Systolic And Diastolic Provider Name and Address Organization Details Last Updated DateTime 5 79 /min 98 % 98 % 97.7 [degF] 16 /min 126/90 mm[Hg] Not Available [employer] 5 13:58:51 Date Recorded Respiratory rate Oxygen saturation Oxygen saturation in Arterial blood by Pulse oximetry Body temperature Heart rate Systolic And Diastolic Provider Name and Address Organization Details Last Updated DateTime 5 16 /min 99 % 99 % 98.8 [degF] 89 /min 116/80 mm[Hg] Not Available [employer] 5 15:10:26 Date Recorded Heart rate Respiratory rate Body temperature Oxygen saturation Oxygen saturation in Arterial blood by Pulse oximetry Systolic And Diastolic Provider Name and Address Organization Details Last Updated DateTime 5 87 /min 18 /min 97.7 [degF] 99 % 99 % 152/98 mm[Hg] Not Available [employer] 5 14:54:26 Date Recorded Body temperature Body height Respiratory rate Body weight Heart rate Oxygen saturation Oxygen saturation in Arterial blood by Pulse oximetry Systolic And Diastolic Provider Name and Address Organization Details Last Updated DateTime 5 98.1 [degF] 157.48 cm 16 /min 62865.4 8 g 73 /min 99 % 99 % 158/84 mm[Hg] Not Available [employer] 5 17:36:19 Date Recorded Oxygen saturation Oxygen saturation in Arterial blood by Pulse oximetry Heart rate Respiratory rate Body temperature Systolic And Diastolic Provider Name and Address Organization Details Last Updated DateTime 5 99 % 99 % 72 /min 18 /min 98.5 [degF] 145/92 mm[Hg] Not Available [facility] - production 11:04:48 Social History None recorded. Functional Status None recorded. Mental Status None recorded. Family History Nothing Reported. Medical History No medical history recorded. Gynecological HistoryNo gynecological history recorded. Obstetrics History GPAL:G 0 P 0 0 0 0 Past Encounters Encounter ID Performer Location Encounter Start Date Encounter Closed Date Diagnosis/Indication Diagnosis SNOMED-CT Code Diagnosis ICD10 Code Diagnosis IMO Codes Diagnosis Note [id number] KALYN YAO MD [facility] [address] [place] [address] 02/22/2024 21:29:01 02/23/2024 18:48:12 Urinary symptoms 298164938 R39.9 Evaluation in the field was performed by my calcine furnace loader colleague, as noted above, I provided real-time [...] first dose was administer ed by the calcine furnace loader. -To alleviate the burning sensation, a prescripti [...] or flank pain or any other concerns. [id number] Fawn Coelho MD [facility] - [facility] [address] [place] [phone] 02/23/2024 14:34:12 02/23/2024 18:56:04 Urinary symptoms [id number] R39.9 [id number] Aramis Gallardo MD Main - [facility] [address] [place] [id number] 02/26/2024 11:22:16 02/28/2024 11:56:29 Urinary symptoms [id number] R39.9 Fever [id number] R50.9 [id number] [facility] [address] [place] [id number] 03/23/2024 13:03:05 03/25/2024 16:45:46 Urinary symptoms [id number] R39.9 As noted, we were called to see this patient regarding concerns of urinary symptoms. Evaluation in the field was performed by my calcine furnace loader colleague, as noted above, I provided real-time [...] changes to consciousn ess, chest pain, dypsnea. [id number] Alisia Aguirre MD [facility] - [address] [address] 04/01/2024 18:50:28 04/01/2024 19:49:17 Low back pain [id number] M54.50 48 year old female with a [...] of the lower extremitie s. Prior to [facility]'s visit she took an excedrin which is helping bring the paind own. Exam notable for normal vital signs, neurologic exam is grossly normal. Presentati on consistent with acute on chronic lumbar radiculopa thy, no red flags noted. I have reviewed and agree with the assessment and plan as documented by the calcine furnace loader. I provided real-time medical direction for this encounter and was immediatel y available to provide additional phone-base d assistance as needed. We discussed the diagnostic uncertaint y of home visits and associated risks. We discussed the need to seek care urgently/e mergently in the setting of any new or worsening symptoms. [id number] Fawn Coelho MD [facility] - [address] [phone] 04/18/2024 20:44:44 04/19/2024 19:18:03 Essential hypertension [id number] I10 [id number] Katia Irvin MD [facility] - [place] [id number] 0 06/17/2024 11:35:49 06/17/2024 13:51:22 Lightheadedness [id number] R42 [id number] DELROY DIAZ MD [facility] - [place] [id number] 07/06/2024 17:58:16 07/07/2024 17:54:54 Acute headache 289249681 R51.9 [id number] Leni Joseph MD [facility] [place] [id number] 09/13/2024 13:58:48 09/14/2024 15:14:26 Vaginal discharge [id number] N89.8 48908 Dizziness 123362736 R42 73475 [id number] [place] [address] 10/05/2024 14:54:45 10/06/2024 20:52:55 Spasm of back muscles 844706760 M62.830 [id number] Fawn Coelho MD [place] [id number] 10/06/2024 14:54:22 10/06/2024 21:05:01 Low back pain 937849943 M54.50 [id number] TRISTON LOJA NP, [address] [place] [id number] 10/26/2024 17:36:16 10/27/2024 15:59:17 Acute low back pain 795270942 M54.50 [id number] Fawn Coelho MD [place] [id number] 11/22/2024 11:04:45 11/22/2024 12:18:43 Acute migraine [id number] 98001 G43.909 [id number] Health Concerns Section Related Observation LastModified by Organization Detai ls LastModified Time None Recorded Concern Status LastModified by Organization Details LastModified Time None Recorded Advance Directives Directive None Recorded Payers Insurance Date Sequence Insurance Name Policy Number Policy Fernandez Covered Member ID Fernandez Member ID Guarantor Name 11/22/2024 1 [facility] - DOS ON OR AFTER 2022 - DUAL ELIGIBLE - GROUP HOME OPTIONS AND ONE CARE (MEDICARE REPLACEMENT/ADV ANTAGE - HMO) Atiya Rollearez [id number] Atiya Santosh Mauri Notes Date Note Type Note Provider Name and Address Organization Details Recorded Time 09/13/2024 text/html CRC Nurse Triage Notes (Yoli Dalal): Reason For Request: vaginal yeast infection Patient Reports: Painful urination Denies: Unable to void greater than 5 hours Erection that will not go away after 2 hours Fall or trauma that results in urinary incontinence in the setting of pain Fall or injury that results in incontinence in the absence of pain Lower back pain either unilateral or bilateral, unable to void, painful urination -hematuria Chief Complaints: Abnormal Lab Value, Urinary Symptoms, Weakness PMH: Bipolar Disorder, Gastroesophageal Reflux Disease (GERD), Hypertension, Anemia, Joint Replacement (e.g., Hip, Knee) PMH Reviewed at 09/13/2024:32 Allergies Reviewed at 09/13/2024:32 Comments: Member believes she has a yeast infection. Having itching and burning. Some brown discharge. No odor. Tried an OTC medication but it didn't work. Symptoms started Sunday. Have had these in the past. Unsure if she is having urinary symptoms- some burning but unsure. Member also mentioning that she is feeling a bit dizzy and weak. History of hyponatremia. 48 y.o female I provided information on the mobile health provider response time and advised the patient and/or caregiver to monitor reported signs and symptoms. I discussed the warning signs of when to seek emergency care. Machinist Outside Organization Information for Sandro Kearney Business Legal Name: [facility] Transportation Address: [address] [place] [address], [place] Osei [address], Lug Breaker And Wire Puller: Jeff Bautista MD CLIA No.: [id number] [employer] POC Test Results from Sandro Kearney epoc (13:55:20) pH: 7.42pH units pCO2: 34.6mmHg pO2: 53.3mmHg Na: 141mmol/L K: 4.4mmol/L iCa: 1.23mmol/L Cl: 107mmol/L TCO2: 21.4mEq/L Hct: 41% Hb: 13.9g/dL Glu: 93mg/dL Lac: 0.63mmol/L Cr: 0.64mg/dL BUN: 12mg/dL Ammol/L HCO3: 22.6mmol/L Urine Dipstick (13:55:23) Urine leukocytes: -LEXIE Urine nitrites: -NIT Urine urobilinogen: -URO Urine protein: -PRO Urine pH: 7.0pH Urine blood: -BLO Urine specific gravity: 1.010SG Urine ketones: -KET Urine bilirubin: -MARCEL Urine glucose: -GLU ...................... ...................... ...................... ...................... ...................... ...................... ......... Machinist Outside Note From Sandro Kearney: This 48-year-old female with a history including but not limited to bipolar disorder, GERD, HTN, anemia requested a visit today address brown vaginal discharge since Sunday. Patient states she believes it's a yeast infection, purchased OTC Monistat and Vagisil topical with no improvement in symptoms. Patient states she's experienced vaginal burning since starting the Vagisil. Patient contacted her ORACLE BUSINESS INTELLIGENCE DEVELOPER who recommended being swabbed before being treated [...] benefit of avoiding an ED visit. I instructed her to follow up with her ORACLE BUSINESS INTELLIGENCE DEVELOPER to be swabbed, continue to stay well hydrated and present to the emergency department for any new or worsening severe symptoms such as uncontrollable nausea/vomiting, severe abdominal or flank pain, high fever, altered mental status. The patient was given the opportunity to ask questions and is agreeable to this plan. [facility] Lab Orders: BMP, serum or plasma: Performed urinalysis, dipstick: Performed ...................... ...................... ...................... ...................... ...................... ...................... ......... [facility] Consulted: Leni Joseph ...................... ...................... ...................... ...................... ...................... ...................... ......... Disposition: Fulfilled Leni Joseph MD [address] [place] [address],[address], [place], [phone], [employer] 09/13/2024 14:20:16 10/05/2024 text/html ROS as noted in the [facility] CRC Nurse Triage Notes (Bari Salinas): Reason For Request: back painDenies: Falls with head strike and LOC Falls from a standing position, no LOC, patient is amnestic to the event Falls with isolated injury and deformity noted to limb Falls with inability to move post fall Cool extremities after fall or injury Weakness with fall, able to move all extremities Chief Complaints: Back PainPMH: Bipolar Disorder, Gastroesophageal Reflux Disease (GERD), Hypertension, Anemia, Joint Replacement (e.g., Hip, Knee)PMH Reviewed at 10/05/2024Allergies Reviewed at 10/05/2024 - Comments: 49 y.o female complains of Back Pain since this AM Pt reports feeling unwell with upper/lower back pain - I tried working and just can't do it. Denies any new injuries/trauma - Denies bruising and swelling Denies fever Reports taking Tylenol and muscle relaxers with no relief Pain management requested I provided information on the mobile health provider response time and advised the patient and/or caregiver to monitor reported signs and symptoms. I discussed the warning signs of when to seek emergency care. ...................... ...................... ...................... ...................... ...................... ...................... ......... Mach[employer]ist Outside Note From Jacob Miramontes: Pt is a 49y.o. female requesting a visit for back pain. Pt stated she started a new job and was under the impression that she would be doing something different. Pt stated she woke up with back pain this morning. Pt stated she took Acetaminophen 1,000mg at 0430hrs and again at 0800hrs. Pt stated she took her muscle relaxer Flexeril at 0900hrs with no relief. Pt stated she has a herniated disk in her lower back. Pt stated her pain is in the upper, mid and lower back. Pt stated her pain is a 7/10. Pt stated she has been using a heating pad. Pt's VS were taken and noted. Pt's lung sounds are clear in all lobes. There is no edema noted in the lower extremities. Palpation of the Pt's back and pain was on the left and right side of the spine. Spoke with Dr. Tolentino in regard to the Pt. Dr. Tolentino requested Pt get 1,000mg Acetaminophen and 15mg Toradol IM. % Rights were gone over. Pt was given 500mg Acetaminophen x2 for a total 1,000mg. Pt was given 15mg Toradol IM Right Bicep without any issues. Pt education was provided. Pt was advised to follow up with her PCP. Pt stated she was going to call on Sunday. Red Flag warnings were gone over. [facility] Medication Orders: acetaminophen 500 mg tablet: Administered ketorolac 30 mg/mL injection solution: Administered ...................... ...................... ...................... ...................... ...................... ...................... ......... [facility] Consulted: Rhea Tolentino ...................... ...................... ...................... ...................... ...................... ...................... ......... Disposition: Lizette RHEA TOLENTINO MD [address] [facility],[address], [place], [phone], [employer] 10/06/2024 13:36:11 10/06/2024 text/html CRC Nurse Triage Notes (Wellington Cordova): Reason For Request: Patient has back and left knee pain. Denies: Worst Headache of life New onset of vision loss Sudden onset -unilateral weakness/gait disturbance Fall with head strike and altered LOC New onset of Slurred speech or difficulty finding words Sudden Mental status changes Head pain with fever chills and neck pain Seizure activity Chief Complaints: Back Pain, Extremity Pain PMH: Bipolar Disorder, Gastroesophageal Reflux Disease (GERD), Hypertension, Anemia, Joint Replacement (e.g., Hip, Knee) PMH Reviewed at 10/06/2024 - 13:14 Allergies Reviewed at 10/06/2024 - 13:14 Comments: Additional PMH: Hyponatremia 49 y.o female complains of Back Pain, Extremity Pain Patient calling reporting bad back pain and L knee pain. Patient reports she had total knee replacement in May on L knee, and is waiting to start PT again. Patient reports she was seen yesterday and given a shot of Toradol and some Tylenol. Patient reports Toradol shot did help. Patient states she tried a muscle relaxer and Tylenol with no relief in pain this afternoon. Patient reports back pain started the next day after lifting something heavy. Patient reports pain [...] warning signs of when to seek emergency care -Bobo Cordova RN Machinist Outside Organization Information for Temo Martinez [employer] Legal Name: [employer]. Address: [address] [place] [id number], Lug Breaker And Wire Puller: Benjy Haile MD CLIA No.: [id number] Machinist Outside POC Test Results from Temo Martinez - [facility] iSTAT Chem8+ (15:01:39) Na: 142mEq/L K: 3.9mEq/L Cl: 109mEq/L iCa: 1.26mmol/L TCO2: 21mmol/L Glu: 96mg/dL BUN: 10mg/dL Crea: 0.8mg/dL Hct: 40% Hb: 13.6g/dL Ammol/L Cartridge Number: [id number] Attachments uploaded as part of this test result can be found under Documents section. ...................... ...................... ...................... ...................... ...................... ...................... ......... Machinist Outside Note From Temo Martinez: Encountered patient conscious, solar and ambulatory. 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 Patient expresses she was seen by the [facility] service on 10/05/24 and was treated with Toradol, was looking for a repeat dose today to hold her over until her primary care appointment on 10/07/24. BMP performed, values uploaded via [employer]. Skin warm, dry and of appropriate color for ethnicity. Head and neck, free of trauma and edema. -JVD. Breath sounds present clear and equal bilaterally. Abdomen is soft, nontender and non-distended. Extremities free of trauma edema. [facility] contacted: reports multiple administrations of Toradol is not part of [facility] standard [facility] and is also likely to be detrimental to patient. [facility] encourages patient to continue to take her prescribed Flexeril and Tylenol and to also request evaluation by a drapery cutter machine while at her primary care appointment tomorrow. Patient was additionally encouraged to seek further medical attention including 911 if she were to develop chest pain and shortness of breath or uncontrollable pain. Patient verbalizes understanding of the plan and states she is comfortable remaining home today. [facility] Lab Orders: BMP, serum or plasma: Performed ...................... ...................... ...................... ...................... ...................... ...................... ......... [facility] Consulted: Fawn Coelho ...................... ...................... ...................... ...................... ...................... ...................... ......... Disposition: Fulfilled Fawn Coelho MD [address] [place] [address],[address], [place], [phone], [facility] 10/06/2024 16:28:04 10/26/2024 text/html ROS as noted in the [facility] CRC Nurse Triage Notes (Zaida Zambrano): Reason For Request: back pain Denies: Worst Headache of life New onset of vision loss Sudden onset -unilateral weakness/gait disturbance Fall with head strike and altered LOC New onset of Slurred speech or difficulty finding words Sudden Mental status changes Head pain with fever chills and neck pain Seizure activity Head pain not relieved by medication greater than 8 hours Head pain greater than 8 hours -unrelated to falls or injury Head pain with nausea vomiting Dizziness with positional change Sensitive to light Chief Complaints: Back Pain PMH: Bipolar Disorder, Gastroesophageal Reflux Disease (GERD), Hypertension, Anemia, Joint Replacement (e.g., Hip, Knee), Chronic Back Pain PMH Reviewed at 10/26/2024:35 Allergies Reviewed at 10/26/2024:35 Comments: 49 y.o female complains of Back Pain Patient making self referral patient complaining of lower back pain hx of herniated discs taken 2000mg of Tylenol and baclofen today- with some relief but still 7/10 pain no injuries, falls, or unusual exercise noted. denies any kidney issues and not any blood thinners. Patient requesting insted visit for assessment of pain I provided information on the mobile health provider response time and advised the patient and/or caregiver to monitor reported signs and symptoms. I discussed the warning signs of when to seek emergency care. ...................... ...................... ...................... ...................... ...................... ...................... ......... 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 Upon arrival on scene, pt answers the door to let [facility] inside her small and well-kept apartment she shares w/ her two very friendly cats. She is generally well-appearing and pleasant and is fully ambulatory. No ashen or meade color is noted, she is not in respiratory distress, and she is not bleeding anywhere. She is able to answer all questions appropriately and is moving all four extremities in a smooth and coordinated manner. Pt is c/o an increase in her chronic back pain for the past two days. She is using OTC Tylenol and her prescribed baclofen w/ little relief. She is hoping for a toradol shot today to help get her pain under control. She recently started school again and has added stress, plus sitting for longer periods of time doing classes and school work. She denies numbness/tingling into her back, hips, legs, and feet and no bladder or bowel incontinence is reported. [facility] obtains a focused assessment on pt's back. No visible or gross abnormalities are noted and pt has full ROM w/ some pain relief w/ back extension. Tenderness upon palpation to the paraspinous regions L and R of L2-L5. No discoloration, bruising, or rash are noted and area is normothermic to touch. [facility] discusses using cold packs and moist heat as well as a topical analgesic to help w/ the pain. [facility] contacts [facility] and discusses the above. After confirming no known kidney issues, GI bleeds, or anticoagulation and reconfirming allergies, [facility] orders 15mg toradol IM and recommends pt contact her PCP. [facility] administers 15mg toradol in the R deltoid using aseptic technique. Red flag warning signs are discussed w/ the pt and she thanks [facility] for coming. [facility] is clear. Report completed by FAVIO Ellington [id number]. [facility] Medication Orders: ketorolac 30 mg/mL injection solution: Administered Comment: R deltoid ...................... ...................... ...................... ...................... ...................... ...................... ......... [facility] Consulted: Triston Loja .Sera................... ...................... ...................... ...................... ...................... ...................... ......... Disposition: Lizette TRISTON LOJA NP, [address] [facility],[address], [place], [address], [facility] 10/26/2024 18:18:44 11/22/2024 text/html CRC Nurse Triage Notes (Wellington Cordova): Reason For Request: Patient has a Migraine headache Denies: Worst Headache of life New onset of vision loss Sudden onset -unilateral weakness/gait disturbance Fall with head strike and altered LOC New onset of Slurred speech or difficulty finding words Sudden Mental status changes Head pain with fever chills and neck pain Seizure activity Chief Complaints: Headache PMH: Bipolar Disorder, Gastroesophageal Reflux Disease (GERD), Hypertension, Anemia, Joint Replacement (e.g., Hip, Knee), Chronic Back Pain, Migraine PMH Reviewed at 11/22/2024 Allergies Reviewed at 11/22/2024:28 Comments: 49 y.o female complains of Headache Patient calling reporting migraine headache that she awoke with around 0400. Patient reports she took Tylenol and Excedrin without relief in pain. Patient reports known history of migraine headaches. Patient denies visual changes, endorses photophobia. Patient endorsing nausea, denies vomiting. Patient denies fever or chills. Patient speaking in full, coherent sentences at time of call. I provided information on the mobile health provider response time and advised the patient and/or caregiver to monitor reported signs and symptoms. I discussed the warning signs of when to seek emergency care -Bobo Cordova RN ...................... ...................... ...................... ...................... ...................... ...................... ......... 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 Patient aox4 GCS 15 skin pink warm and dry patient complaining of a migraine pmx of migraines. Not on any medication for it. Not currently followed by neurology. Stated that it started approx 0400. Patient attempted OTC meds without any change. +photophobia + Nausea. No vomiting. Patient VS as noted. No red flag symptoms. [facility] contacted advised 30mg toradol IM. 30mg toradol given in right deltoid without incident. Patient in agreement with plan. ...................... ...................... ...................... ...................... ...................... ...................... ......... [facility] Consulted: Fawn Coelho ...................... ...................... ...................... ...................... ...................... ...................... ......... Disposition: Fulfilled Fawn Coelho MD [address] [facility],[address], [place], [address], [facility] 11/22/2024 11:55:19 OBGyn Episode No OBEpisode recorded.
--- OUTSIDE RECORDS SUMMARY | 2024-12-10 03:18 | XMS_ITS | Encounter Summary ---
Author Organization [employer] Address [address] [place] [address] [address] [place] [address] Care Team Providers Care Nuclear Powerplant Supervisor Name Role Phone Maddie Kim MD Primary Care Provider [phone] Encounter Details Date Type Department Care Team ([facility] st Contact Info) Description 07/29/2023 Orders Only [facility] [address] [place], [place] [phone] Maddie Kim MD [address] [place], [place] [phone] Social History Tobacco Use Types Packs/Day Years [...] documented as of this encounter Care Teams Nuclear Powerplant Supervisor Relationship Specialty Start Date End Date Maddie Kim MD [address] [place] [id number] PCP - General Family Medicine 07/12/20 Willie Gage 01/17/22 documented as of this encounter
--- OUTSIDE RECORDS SUMMARY | 2024-12-10 03:18 | XMS_ITS | Clinical Summary ---
Author Organization [employer] Address [address] [place] [address] 7[address] [place] [address] Care Team Providers Care Software Applications Specialist Name Role Phone Maddie Kim MD Primary Care Provider [phone] Allergies Active Allergy Reactions Criticality Noted Date [...] mouth 2 times daily. 10/20/19 23 Active Emollient (Minerin) lotion APPLY TOPICALLY 2-3 TIMES A DAY NEEDED FOR DRY SKIN 473 mL 4 09/07/19 24 Active albuterol 108 (90 Base) MCG/ACT inhaler Inhale 2 puffs every 6 (six) hours if needed for wheezing. 18 g 11 09/07/19 24 Active minoxidil (Loniten) 2.5 MG tablet Take [...] DAY 180 capsule 1 03/04/19 25 Active QUEtiapine (SEROquel) 50 MG tablet [...] A DAY 90 tablet 04/09/19 25 Active Vraylar 1.5 MG capsule 04/11/19 25 Active clonazePAM (KlonoPIN) 0.5 MG tablet 04/04/19 25 Active propranolol (Inderal) 10 MG tablet 04/11/19 25 Active cholecalcifer ol (Vitamin D-3) 50 MCG (1999 UT) capsule Take 1 capsule (50 mcg) by mouth Once per day. 90 capsule 3 06/14/19 25 Active Blood Pressure kit Use as directed to check blood pressure 1 kit 06/17/19 25 Active GaviLAX 17 GM/SCOOP powder DISSOLVE 17 GRAM IN WATER AND TAKE BY MOUTH ONCE DAILY 1-3 TIMES DAILY TO PRODUCE 1 SOFT STOOL DAILY 510 g 2 08/05/19 25 Active gabapentin (Neurontin) 400 MG capsule Take 1 capsule (400 mg) by mouth every 6 (six) hours. 120 capsule 3 09/09/19 25 Active Salicylic Acid 40 % pads Apply 1 Pad topically at bedtime. 30 each 09/09/19 25 Active terconazole (Terazol 3) 0.8 % vaginal cream INSERT 1 APPLICATORFUL VAGINALLY BEDTIME FOR 3 DAYS Active clindamycin (Cleocin) 300 MG capsule TAKE 2 CAPSULES BY MOUTH 1/2 HOUR PRIOR TO DENTAL APPOINTMENT 09/19/19 25 Active buPROPion SR (Wellbutrin SR) 100 MG 12 hr tablet 09/27/19 25 Active ferrous gluconate (Fergon) 324 (38 Fe) MG tablet Take 1 tablet (324 mg) by mouth with breakfast. 90 tablet 3 10/08/19 25 Active baclofen (Lioresal) 10 MG tablet Take 1 tablet (10 mg) by mouth 3 times daily. 90 tablet 10/08/19 25 Active lisinopril 10 MG tablet TAKE 2 TABLETS (20 MG) BY MOUTH ONCE PER DAY. 60 tablet 11 11/01/19 25 Active Tirzepatide-W eight Management (Zepbound) 12.5 MG/0.5ML solution auto-injector Inject 0.5 mL (12.5 mg) under the skin 1 (one) time per week. 2 mL 3 11/22/19 25 Active QUEtiapine (SEROquel) 25 MG tablet 10/30/19 25 Active traZODone (Desyrel) 50 MG tablet 11/21/19 25 Active Tirzepatide-W eight Management (Zepbound) 12.5 MG/0.5ML solution auto-injector Inject 0.5 mL (12.5 mg) under the skin 1 (one) time per week. 2 mL 3 10/08/19 25 2024 Discontinued(R eorder (will not trigger notification to Pharmacy)) Active Problems Problem Noted Date Diagnosed Date S/P gastric bypass 09/22/2024 Class 2 obesity 09/08/2024 Closed nondisplaced fracture of proximal phalanx of lesser toe of left foot 08/01/2024 Assessment & Plan (08/02/2024 9:33 AM EDT): I advise to apply ice elevate rest as much as she can, I explain to her this will heal on its own but she is going to be in pain for approximately 2-4 weeks and pain should be decreasing progressively I will increase for short period her celebrex to BID I prescribed only 5 tablets of tramadol, patient is not currently on vivitrol (she stopped due to recent knee replacement surgery), I instructed her to take it only if is strictly necessary, extensive counseling done Assessment & Plan (08/01/2024 1:32 PM EDT): X-ray demonstrates non displaced fracture of proximal phalanx Toes were rob taped in [facility] Pt advised to wear thick soled shoes, or Return to clinic for walking boot if pt does not have appropriate footwear S/P total knee arthroplasty, left 07/04/2024 Postoperative pain 05/29/2024 Sciatic pain, right 10/19/2023 Assessment & Plan [...] compliance and benefit Retained orthopedic hardware 08/13/2023 Fracture of ankle 08/10/2023 Daytime somnolence 06/19/2023 Assessment & Plan (06/19/2023 8:24 AM EDT): Will order sleep study History of LAUREN previously diagnosed Unrefreshing sleep Witnessed snoring and apnea Mass of joint of left wrist 06/18/2023 Ganglion cyst of dorsum of left wrist 02/23/2023 Assessment & Plan (02/23/2023 8:52 AM EST): Will refer to [facility] hand surgeon History of gastrectomy 10/06/2022 Assessment & Plan (04/02/2024 4:07 PM EST): 2009 gastric sleeve Assessment & Plan (10/06/2022 7:52 AM EDT): Refer to [facility] weight loss program for discussion [...] suicide, which she denies currently Hematochezia 07/24/2019 Knee pain, bilateral 04/03/2019 Assessment & Plan [...] hardware removed Bipolar disorder with severe sonya ([facility]) Assessment & Plan (09/09/2024 8:32 AM EDT): Patient needs VNA for administratio of medications. She was using [facility], but they cannot come before her work day at 8am. Please write order for medical dir in the morning between 7 and 8 and send to [facility] Assessment & Plan (10/06/2022 7:54 AM EDT): Continue therapy, support services around sobreity Invega injection Depakote 1000mg daily Bilateral low back pain 08/02/2018 Overview (12/20/2022): L 4-5 disc herniation (MRI 2005). Assessment & Plan (10/08/2024 3:56 PM EDT): Flare of pain at midback and low back without red flags. Seems straightforwardly related to lifting a patient We discussed risks and benefits of short term opioids, mostly to allow her to get to PT for her L knee She recognizes the risk of relapse and will reach out to her sponsor if that happens Assessment & Plan (03/29/2023 1:47 PM EST): [...] 03/17/2015 Benign hypertension 03/17/2015 Assessment & Plan (09/09/2024 8:31 AM EDT): At goal at home <140/90 Continue Lisinopril 20mg daily, with trial of 10mg if pressures <120/70 Assessment & Plan (02/23/2023 8:55 AM EST): At goal at home <140/90 Continue Lisinopril 5mg daily Gastroesophageal reflux disease without esophagi tis 03/17/2015 Migraine 03/17/2015 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 Overview (05/31/2022): See tel enc 05/18/14 See tel enc 05/18/14 See tel enc 05/18/14 Arthritis 05/14/2013 Schizoaffective disorder, bipolar type (CMS/HCC) 05/14/2013 Assessment & Plan (07/19/2023 2:22 PM EDT): Managed per psych Backbone of mgmt is Invega Sustena Assessment & Plan (05/17/2023 3:51 PM EDT): IOP paperwork/FMLA paperwork signed She has support system in place for during this time, re-iterated that she can reach us through [facility] if she needs anything Assessment & Plan [...] Problem Noted Date Diagnosed Date Resolved Date Pain in left toe(s) 08/01/2024 09/10/19 25 Diabetes due to undrl condit ion w oth diabetic neuro comp 04/02/2024 04/02/2024 Allergy 01/27/2022 10/11/2023 Overview (01/27/2022): pcn,dilaudid Alcohol use disorder, modera te, dependence ([facility]/HCC) 09/06/2020 02/20/2023 Assessment & Plan (10/06/2022 7:51 AM EDT): In early remission Diarrhea 05/28/2019 09/09/2024 Class 3 severe obesity with serious comorbidity and body mass index (BMI) of 40.0 to 44.9 in adult, unspecified obesity type 03/26/2014 09/09/2024 Assessment & Plan (07/04/2024 6:50 AM EDT): [...] sleeve? I think discuss portion sizes with drilling machine operator Assessment & Plan (01/29/2022 10:40 AM EST): Encouraged better eating habits Opioid abuse 03/26/2014 09/09/2024 Overview (10/06/2022): In sustained remission Assessment & Plan (07/19/2023 2:22 PM EDT): Activated briefly by T3, now in IOP Anemia 05/14/2013 09/09/2024 HBP (high blood pressure) 05/14/2013 Assessment & Plan (11/17/2023 9:53 AM EDT): Increase Lisinopril to 10mg daily EKG without ST-T segment changes in clinic If symptoms persist into weekend, recommend ER evaluation for troponin trending Encounters Date Type Department Care Team Description 12/10/2024 Orders Only GENERIC EXTERNAL DATA DEPARTMENT Provider, Generic External Data 11/21/[address] [facility] [address] [place] [address] Maddie Kim MD 11/21/[address] [facility] [address] [place] [address] Maddie Kim MD Med Refill 11/04/[address] [facility] [address] [place] [address] Maddie Kim MD Med Refill 10/29/[address] [facility] [address] [place] [address] Maddie Kim MD 10/24/[address] [facility] [address] [place] [address] Maddie Kim MD Med Refill 10/17/[address] [facility] [address] [place] [address] Maddie Kim MD Cervical spine pain (Primary Dx) 10/16/[address] [facility] [address] [place] [address] Maddie Kim MD Referral 10/14/[address] [address] Maddie Kim MD Referral 10/13/[address] [address] Maddie Kim MD Care Coordination 10/07/2024 11:30 AM EDT Office Visit [address] [address] Maddie Kim MD Sciatic pain, right (Primary Dx); Benign hypertension; Class 2 obesity; Acute bilateral low back pain without sciatica; Chronic midline low back pain without sciatica; Acute upper back pain 10/07/2024 Travel 10/06/[address] [address] Maddie Kim MD Nurse Triage 09/19/[address] [address] Maddie Kim MD Med Refill 09/15/[address] [address] Maddie Kim MD NTTS 09/09/[address] [address] Maddie Kim MD VNA referral switch from Last 3 Months Immunizations Immunization Administration Dates Next Due Influenza Injectable Quadriv alant Preservative Free IIV4 MDCK 01/01/2023 Influenza injectable quadriv alent preservative free 12/26/2021,01/01/2021,02/27/2020 Influenza, IIV3, injectable 01/05/2022,1 03/19/2015,10/13/2014,10/31,03/02/2011,11/01/2009 Influenza, Injectable, MDCK, preservative free 12/11/2023 Influenza, seasonal, injecta ble, preservative free 10/21/2023 Moderna Covid-19 Vaccine 12+ 08/26/2020,07/30/19 21 Pfizer [...] housing situation today? I have salome cassidy 09/08/[address] you li ve. Do you have problems with any of the following? None of the above 09/08/2024 Food Insecurity Answer Date Recorded Within the past 12 months, y ou worried that your food would run out before you got money to buy more: Sometimes True 2024 Within the past 12 months,th e food you bought just didn't last and you didn't have enough money to get more: Sometimes True 09/08/2024 Transportation Answer Date Recorded In the past 12 months, has l ack of transportation kept you from medical appts, meetings, work or from getting things needed for daily living? No 09/08/2024 Utilities Answer Date Recorded In the past 12 months, has t he electric, gas, oil or water company threatened to shut off services in your home? No 09/08/2024 Depression Answer Date Recorded Patient Health Questionnaire-2 Score 4 07/04/2024 Internet Access Answer Date Recorded Internet Access Q1 Yes 09/08/2024 Internet Access Q2 Not on file 09/08/2024 Comments No Intention Date Recorded No desire to become (finding) 0 09/08/2024 Sex and Gender Information Value Date Recorded Sex Assigned at Female 12/19/2021 10:17 AM EDT Legal Sex Female 10:17 AM EDT Gender Identity Female 12/19/2021 10:17 AM EDT Sexual Orientation Straight 12/19/2021 10 :17 AM EDT Last Filed Vital Signs Vital Sign Reading Time Taken Comments Blood Pressure 126/86 10/07/2024 11:20 AM EDT Pulse 80 10/07/2024 11:20 AM EDT Temperature 36.3 C (97.4 F) 10/07/2024 11:20 AM EDT Respiratory Rate 18 10/07/2024 11:20 AM EDT Oxygen Saturation 100% 10/07/2024 11:20 AM EDT Inhaled Oxygen Concentration - - Weight 86.4 kg (190 lb 6.4 oz) 10/07/2024 11:20 AM EDT Height 157.5 cm (5' 2 ) 10/07/2024 11:20 AM EDT Body Mass Index 34.82 10/07/2024 11:20 AM EDT Plan of Treatment Health Maintenance Due Date Last Done Comments CT Colonography 1975 Colonoscopy 1975 Colorectal Cancer Screening 1975 FIT DNA/Cologuard 1975 FIT 1975 FOBT 1975 HIV Screening 1975 Sigmoidoscopy 1975 Hepatitis C Screening 10/03/1995 Hepatitis B Vaccines (1 of 3 - 19+ 3-dose series) 1996 DTaP/Tdap/Td Vaccines (3 - Td or Tdap) 09/19/2020 09/19/2010, 10/12/2009 COVID-19 Vaccine ( season) 2024 12/26/2021, 08/26/2020, 07/29/2020 Influenza Vaccine (#1) 2024 , 10/21/2023, 01/01/2023, Additional history exists Depression Monitoring 01/04/2025 07/04/2024, 025 Mammogram 05/03/2025 05/04/2023, 03/23, 02/28/2022 Alcohol/Substance Use Screening 07/04/2025 07/04/2024 Disability Screening 09/08/2025 09/08/2024 SDOH Screening 09/08/2025 09/08/2024 Family Planning (PISQ) 09/09/2025 09/09/2024 Tobacco Screening 10/08/2025 10/08/2024 HPV/Cotest 12/20/2025 12/20/2020, 12/20/2020 Cervical Cancer Screening 01/21/2027 Pap Smear 01/21/2027 01/22/2024, 08/20, 12/20/2020 Zoster Vaccines (1 of 2) 10/03/2027 Lipid Panel 09/07/2028 09/08/2023 RSV Patients and Patients Aged 60 years or older (1 - 1-dose 75+ series) 2052 Pneumococcal Vaccine: Pediatrics (0 to 5 Years) and At-Risk Patients (6 to 49) Years Aged Out 05/26/2015 No longer eligible based on patient's age to complete this topic HIB Vaccines Aged Out No longer eligi [...] this topic Meningococcal Vaccine Aged Out No chirs ezio eligible based on patient's age to complete this topic RSV under 20 months Aged Out No longe r eligible based on patient's age to complete this topic Rotavirus Vaccines Aged Out No longer eligible based on patient's age to complete this topic Procedures Procedure Name Priority Date/Time Associated Diagnosis Comments DRUG MONITOR, PANEL 1, SCREEN, URINE Routine 12/10/2024 2:54 AM EDT URINALYSIS, COMPLETE, WITH REFLEX TO CULTURE Routine 12/10/2024 2:54 AM EDT CBC WITH AUTO DIFFERENTIAL Routine 12/10/2024 2:53 AM EDT PAP SMEAR Routine 01/22/2024 8:03 AM EST [...] Relevant to Health Maintenance Results * (ABNORMAL) Drug Monitoring, Panel 1, Screen, Urine (12/10/2024 2:54 AM EDT) Opiate Screen Urine Not Detected Not Detect [facility] Comment:Opiate cut-off is 30 0 ng/mL.Positive results are unconfirmed and should not be used fornon-medical purposes. Barbiturates, Urine Not Detected Not Detect [facility] Comment:Barbiturate cut-off is 200 ng/mL.Positive results are unconfirmed and should not be used fornon-medical purposes. Phencyclidine Screen Urine Not Detected Not Detect [facility] Comment:Phencyclidine cut-of f is 25 ng/mL.Positive results are unconfirmed and should not be used fornon-medical purposes. Amphetamine Screen Urine Not Detected Not Detect [facility] Comment:Amphetamine cut-off is 1000 ng/mL.Positive results are unconfirmed and should not be used fornon-medical purposes. Benzodiazepines Screen Urine Not Detected Not Detect [facility] Comment:Benzodiazepine cut-o ff is 200 ng/mL.Positive results are unconfirmed and should not be used fornon-medical purposes. Cocaine Screen Urine Not Detected Not Detect [facility] Comment:Cocaine cut-off is 3 00 ng/mL.Positive results are unconfirmed and should not be used fornon-medical purposes. Cannabinoid Screen Urine POSITIVE(A) Not Detect [facility] Comment:Cannabinoid cut-off is 50 ng/mL.Positive results are unconfirmed and should not be used fornon-medical purposes. Methadone Screen, Urine Not Detected Not Detect ng/mL [facility] Comment:Methadone cut-off is 300 ng/mL.Positive results are unconfirmed and should not be used fornon-medical purposes. FENTANYL URINE Not Detected Not Detect [facility] Comment:Fentanyl cut-off is 1 ng/mL.Positive results are unconfirmed and should not be used fornon-medical purposes. Oxycodone Urine Screen Not Detected Not Detect ng/mL [facility] Comment:Oxycodone cut-off is 100 ng/mL.Positive results are unconfirmed and should not be used fornon-medical purposes. Buprenorphine Screen Not Detected Not Detect ng/mL [facility] Comment:Buprenorphine cut-of f is 5 ng/mL.Positive results are unconfirmed and should not be used fornon-medical purposes. 12/10/2024 2:54 AM EDT 12/10/2024 3:00 AM EDT us Generic External Data Provider LAB URINE ORDERAB LES Final Result [facility] [address] [place] [address] [phone] * (ABNORMAL) CBC auto differential (12/10/2024 2:53 AM EDT) White Blood Count 8.5 4.8 - 10.8 X10*3/uL [facility] Red Blood Count 5.24 4.20 - 5.50 X10*6/uL [facility] Hemoglobin 12.9 12.0 - 16.0 g/dl [facility] Hematocrit 40.0 37.0 - 47.0 % [facility] Mean Corpuscular Volume 76.3(L) 80.0 - 98.0 fL [facility] Mean Corpuscular Hemoglobin 24.6(L) 27.0 - 33.0 pg [facility] Mean Corpuscular HGB Conc 32.3 31.0 - 35.0 g/dl [facility] Red Cell Distribution Width 12.9 11.0 - 16.0 % [facility] Platelet Count 299 160 - 400 X10*3/uL [facility] Mean Platelet Volume 10.1 9.4 - 12.3 fL [facility] Neutrophils Percent Auto 61.9 45 - 73 % [facility] Imm Gran Pct Auto 0.2 0.0 - 0.4 % [facility] Lymphocytes Percent Auto 26.2 20 - 40 % [facility] Monocytes Percent Auto 8.6 2 - 11 % [facility] Eosinophils Percent Auto 2.6 0 - 4 % [facility] Basophils Percent Auto 0.5 0 - 2 % [facility] NRBC Pct Auto 0.0 0.0 - 0.2 /100WBC [facility] Neutrophils Absolute Auto 5.3 2.0 - 8.3 x10*3/uL [facility] Imm Gran Abs Auto 0.02 0.00 - 0.03 X10*3/uL [facility] Lymphocytes Absolute Auto 2.2 1.2 - 4.9 X10*3/uL [facility] Monocytes Absolute Auto 0.7 0.1 - 1.2 X10*3/uL [facility] Eosinophils Absolute Auto 0.2 0.0 - 0.4 X10*3/uL [facility] Basophils Absolute Auto 0.0 0.0 - 0.2 X10*3/uL [facility] NRBC Abs Auto 0.000 0.0 - 0.012 X10*3/uL [facility] 12/10/2024 2:53 AM EDT 12/10/2024 3:00 AM EDT us Generic External Data Provider LAB BLOOD ORDERAB LES Final Result [facility] [address] [place] [phone] * Pap Smear (01/22/2024 8:03 AM EST) 01/22/2024 8:03 AM EST 01/23/2024 11:00 AM EST Narrative [facility] - 01/25/2024 12:58 PM EST ----- ------- Name: Atiya Esparza Age/Sex: 48/F : 1975 Unit#: [id number] Attend Dr: John Schmidt MD Re01/22/24 Status: DEP REF Location: [facility] Disch: ----- ------- SPEC : [id number] RECD: 01/23/24 STATUS: SHASHIJackson MARYSOL NUM: [id number] MAMADOU: 01/22/24 [facility] DR: John Schmidt MD ENTERED: 01/23/24 SP TYPE: Pap Smr OTHR DR: Maddie Kim ORDERED: Pap Smear Interpretation Satisfactory for evaluation. Negative for intraepithelial lesion or malignancy. No endocervical cells seen. HPV High Risk: Negative HPV Genotyping 16: Negative HPV Genotyping 18: Positive Clinical Information LMP: Unknown date Previous PAP test: 08/2022, ASCUS, HPV + Other history: Atypical squamous cells of undetermined significance on cytologic smear of cervix (ASCUS), cervical high risk human papillomavirus (HPV) DNA test positive, ASCUS with high risk HPV cervical Material Received ThinPrep-Cervical Copies To: Maddie Kim [address] [place] [address] John Schmidt MD [facility] [address] [place] [address] Drive [address] [place] [address] ----- ------- Signed (signature on file) YASSINE Garcia ([facility]) 01/25/24 1258 ----- ------- END OF REPORT us Generic External Data Provider LAB CYTOLOGY HARJEET AVALOS Final Result [facility] [address] [place] [address] [phone] * Lipid Panel, Standard (09/08/2023 8:43 AM EDT) Triglycerides 57 <150 mg/dL [facility] Comment:Desirable Triglyceri de: less than 150 mg/dLBorderline High Triglyceride 150-199 mg/dLHigh Triglyceride: 200-499 mg/dLVery High Triglyceride: greater than or equal to 5OO mg/dL Cholesterol 158 <200 mg/dL [facility] Comment:Desirable Cholestero l: less than 200 mg/dLBorderline High Cholesterol: 200-239 mg/dLHigh Cholesterol: greater than 239 mg/dL LDL Cholesterol Calculated 87 <100 mg/dL [facility] Comment:Desirable LDL: less than 100 mg/dLNear Optimal/Above Optimal LDL: 110- 129 mg/dLBorderline High LDL: 130-159 mg/dLHigh LDL: 160-189 mg/dLVery High LDL: greater than or equal to 190 mg/dL HDL Cholesterol 60 >40 mg/dL [facility] Comment:Desirable HDL: great er than 40 mg/dL Note: This HDL assay may give artificially low results in patients with liver disease. Blood Venous blood specimen / Unknown 09/08/2023 8:43 AM EDT 09/08/2023 11:09 AM EDT us Maddie Kim MD LAB BLOOD ORDERABLES Final Res ult [facility] [address] [place] [address] [phone] * BI Mammogram Screening Tomosynthesis Bilateral (05/04/2023 4:02 PM EDT) Anatomical Region Laterality Modality Breast Bilateral Mammography 05/04/2023 4:02 PM EDT Narrative 05/26/2023 3:[address]T [facility] [address] [place] [address] Mammography Report Signed Patient: Atiya Esparza MR#: [id number] : 1975 Acct:[id number] Age/Sex: 47 / F ADM Date: 05/04/23 Loc: HO.MAMMO Attending Dr: Maddie Kim MD Ordering Physician: Maddie Kim Results: 1Negative Date of Service: 05/04/23 Follow Up: 1 Year From [facility] Mammogram Procedure(s): MM tomosynthesis screening BI Accession Number(s): [id number] cc: Maddie Kim EXAMINATION: MM SCREENING DIGITAL [...] in OV> 05/26/23 1503 DD/ 1602 TD/TT: Cardiac Cath Technician: Procedure Note Donotuseinterpreter, Image - 05/26/[address] [facility] [address] [place] [address] Mammography Report Signed Patient: Zain Esparza#: [id number] : 1975Acct:[id number] Age/Sex: 47 / FADM Date: 05/04/23 Loc: MICHAEL Attending Dr: Maddie Kim MD Ordering Physician: Jaja Kimults: 1Negative Date of Service: 05/04/23Follow Up: 1 Year From Orig inal Mammogram Procedure(s): MM tomosynthesis screening BI Accession Number(s): [id number] cc: Maddie Kim EXAMINATION: MM SCREENING DIGITAL [...] in OV> 05/26/23 1503 DD/ 1602 TD/TT: Cardiac Cath Technician: Maddie Kim MD IMG BI PROCEDURES Final Result * HPV GENOTYPES 16,18/45 (12/20/2020 12:00 AM EDT) HPV 16 RNA NOT DETECTED NOT DETECTED [facility] HPV 18/45 RNA NOT DETECTED NOT DETECTED [facility] Comment: Methodology: Project Surveyor Mediated Amplification The analytical performance characteristics of this assay have been determined by [employer]. The modifications have not been cleared or approved by the FDA. This assay has been validated pursuant to the CLIA regulations and is used for clinical purposes. 12/20/2020 Maddie Kim MD LAB CYTOLOGY ORDERABLES Final Result [facility] [address] from Last 3 Months or Most Recently Relevant to Health Maintenance Insurance [facility] < 65 Care Teams Software Applications Specialist Relationship Specialty Start Date End Date Maddie Kim MD [address] [place] [phone] PCP - General Family Medicine 07/12/20 Willie Gage 01/17/22
--- OUTSIDE RECORDS SUMMARY | 2024-12-10 03:18 | XMS_ITS | Encounter Summary ---
Author Organization [employer] Address [address] [place] [address] [address] [place] [address] Care Team Providers Care Internet Application Developer Name Role Phone Maddie Kim MD Primary Care Provider [phone] Encounter Details Date Type Department Care Team ([facility] st Contact Info) Description 11/14/[address] [facility] [address] [place] [address] Maddie Kim MD [address] [place] [address] Social History Tobacco Use Types Packs/Day Years [...] documented as of this encounter Care Teams Internet Application Developer Relationship Specialty Start Date End Date Maddie Kim MD [address] [place] [phone] PCP - General Family Medicine 07/12/20 Willie Gage 01/17/22 documented as of this encounter
--- OUTSIDE RECORDS SUMMARY | 2024-12-10 03:18 | XMS_ITS | Data Portability ---
Author Organization CORRIE Gary Green [facility], [facility] Address [address] [place] [address] Care Team Providers Care Manager Pmo Name Role Phone JENA-PIERRE MASON Primary Care Provider Assessment Encounter Date Assessment Date Assessment LastModified by Organization Details LastModified Time 09/18/2024 09/18/2024 History: The patient is approximately 3 months status post a left total knee arthroplasty and presents for routine follow-up per our request. Minimal pain. Takes occasional Tylenol. Feels weak. Reports that she missed many of her physical therapy appointments and wishes to make amends for that and go back to therapy. Requested prescription. PMH/PSH/MEDS/ALL /FMH/SOC HX/ROS all reviewed in detail per my medical intake sheet. ROS: The patient denies fevers, chills, neurovascular changes, history of trauma. Exam: Vitals signs as noted. Alert and oriented x3. Appears well and in no acute distress. Extremities: Incision is well-healed. Calves are soft and nontender. No evidence of DVT. No lower extremity edema. Neurovascular status at baseline. Range of motion is 0-120. Ligaments are stable to varus and valgus stresses. No significant effusion. Quad strength is 5 minus out of 5 with no lag X-rays: Radiographs were not obtained today. Assessment: The patient is doing well approximately 3 months s/p TKA. Plan: The patient will continue with a home exercise program for additional strengthening and conditioning. I have given her another prescription for outpatient physical therapy to assist with increased strength and conditioning. Otherwise, the patient will continue with activity as tolerated. The patient was advised to take occasional OTC acetaminophen or OTC NSAIDS for mild residual discomfort if they are not otherwise medically contraindicated. They are encouraged to discuss this with their PCPS. The potential benefits, risks, and side effects were explained at length.Total knee replacement activity precautions were reviewed. The need for antibiotic prophylaxis for dental visits was discussed. A prescription was provided. The pros and cons of using this were explained. The patient will follow-up annually or sooner if there are any problems. [email or web address] Not available 09/18/2024 12:01:54 10/10/2024 10/10/2024 Assessment: Patient presents with L knee pain following L TKA 05/23/24, with min L knee swelling, tight ITB/lat quad and quad ms atrophy present.. Plan: Continued PT is recommended at 2x/week for 6 weeks to decrease pain, improve quad strength, and increase participation in functional activities. Not available 10/14/2024 07:19:23 10/15/2024 10/15/2024 Assessment: Improvement in knee flex ROM. Good emely to strengthening exs with minor VCs for form. Fatigue at end of session. Finished with CP. Plan: Cont POC. [email or web address] Not available 10/16/2024 16:18:29 10/24/2024 10/24/2024 Assessment: Pt 2with good L knee ROM, cont L quad atrophy noted. L LE ms fatigue s/p therex. Plan: Cont POC. Not available 10/25/2024 23:06:04 11/06/2024 11/06/2024 Assessment: Pt demonstrating good L knee ROM, improving quad strength, good emely to all strength exs (without buckling episodes) Plan: Cont POC. Not available 11/09/2024 20:04:10 Plan of Treatment Reminders Order Date Submit Date Provider Last Modified By Organization Details Last Modified Time Details Appointments None recorded. Lab None recorded. Referral physical therapist referral - s/p Left total knee replacement (05/27/24) Denise ROM, Palomai ng, Bridgettein g, Gait Training Etc. 2024 025 [email or web address] [facility] [place], [address] [place] [address], [place], [address], 14:26:09 Procedures None recorded. Surgeries None recorded. Imaging None recorded. Medication Orders clindamycin HCl 300 mg capsule 2024 Antonio bansal [facility][id number], [address] [place], [address], 5 12:46:20 Patient TargetsNo targets recorded. Patient InstructionsNo instructions recorded. Reason for Referral Physical Therapist Referral for History of total knee arthroplasty s/p Left total knee replacement (05/27/24) Porfirio, Strengthening, Conditioning, Gait Training Etc. Referring Physician: Sage Walker, Orthopedic Surgery, Encounter Date: 09/18/2024 Problems Name Problem SNOMED Code Status Onset Date Resolution Date Notes Provider Name and Address Organization Details Recorded Time No complaints 938922153 Active Status : 'I'; Not Available [facility] 4 09:21:06 Mass of joint of left wrist 8796808591364 9101 Active 2023 Cammy Ovalle, OTR/L,CHT [address], [place], [address] , [facility] 4 09:39:49 Fracture of ankle 18397950 Active 2023 [facility] 4 15:14:42 Postoperat laurence pain 365802746 Active 2024 Huma Augustin APRN [address], [place], [address] , [facility] 5 10:10:16 Problem Notes None recorded. Procedures Surgical History Date Name Laterality Status Provider Name and Address Organization Details Recorded Time 11/07/19 87821 Therapeutic Exercise (1:1) completed Julian Vera PT [address], [place], [address], [facility] 11/09/2024 19:58:43 11/07/19 66154: Manual therapy completed Julian Vera PT [address], [place], [address], [facility] 11/09/2024 19:58:43 10/25/19 51404 Therapeutic Exercise (1:1) completed Julian Vera, PT [address], [place], [address], [facility] 10/25/2024 23:06:22 10/25/19 82918: Manual therapy completed Julian Vera, PT [address], [place], [address], [facility] 10/25/2024 23:06:43 10/16/19 80919 Therapeutic Exercise (1:1) completed Krystina Galo, PARASITOLOGY TEACHER [address], [place], [address], [facility] 10/16/2024 16:15:04 10/16/19 10606: Hot or Cold Pack completed Krystina Galo, PARASITOLOGY TEACHER [address], [place], [address], [facility] 10/16/2024 16:15:20 10/11/19 53839 Therapeutic Exercise (1:1) completed Julian Vera, PT [address], [place], [address], [facility] 10/14/2024 07:11:36 10/11/19 57765: Low complexity PT Eval completed Julian Vera, PT [address], [place], [address], [facility] 10/14/2024 07:11:39 07/09/19 21572 Therapeutic Exercise (1:1) completed Na Gonzalez, PARASITOLOGY TEACHER [address], [place], [address], [facility] 07/09/2024 21:36:12 07/09/19 25977: Neuromuscular Re-Education completed Na Gonzalez, PARASITOLOGY TEACHER [address], [place], [address], [facility] 07/09/2024 21:40:29 07/04/19 40483: Therapeutic Activities (1:1) cancelled Hector Pyser, PT [address], [place], [address], [facility] 07/02/2024 05:38:15 07/04/19 85094 Therapeutic Exercise (1:1) cancelled Hector Pyser, PT [address], [place], [address], [facility] 07/02/2024 05:38:15 07/04/19 55542: Manual therapy cancelled Hector Pyser, PT [address], [place], [address], [facility] 07/02/2024 05:38:15 07/01/19 35210: Therapeutic Activities (1:1) completed Hector Pyser, PT [address], [place], [address], [facility] 06/30/2024 10:41:35 07/01/19 96281 Therapeutic Exercise (1:1) completed Hector Pyser, PT [address], [place], [address], [facility] 06/30/2024 11:06:28 07/01/19 15257: Manual therapy completed Hector Pyser, PT [address], [place], [address], [facility] 06/30/2024 11:06:16 06/28/19 74587: Therapeutic Activities (1:1) cancelled Hector Pyser, PT [address], [place], [address], [facility] 06/26/2024 12:47:26 06/28/19 89689 Therapeutic Exercise (1:1) cancelled Hector Pyser, PT [address], [place], [address], [facility] 06/26/2024 12:47:26 06/28/19 20193: Manual therapy cancelled Hector Pyser, PT [address], [place], [address], [facility] 06/26/2024 12:47:26 06/25/19 54395: Therapeutic Activities (1:1) cancelled Hector Georgeser, PT [address], [place], [address], [facility] 06/23/2024 16:32:14 06/25/19 39390 Therapeutic Exercise (1:1) cancelled Hector Pyser, PT [address], [place], [address], [facility] 06/23/2024 16:32:14 06/25/19 24318: Manual therapy cancelled Hector Georgeser, PT [address], [place], [address], [facility] 06/23/2024 16:32:14 06/19/19 00923: Therapeutic Activities (1:1) completed Na Gonzalez, PARASITOLOGY TEACHER [address], [place], [address], [facility] 06/18/2024 15:01:55 06/19/19 22194 Therapeutic Exercise (1:1) completed Na Gonzalez, PARASITOLOGY TEACHER [address], [place], [address], [facility] 06/18/2024 15:01:55 06/19/19 74536: Manual therapy completed Na Gonzalez, PARASITOLOGY TEACHER [address], [place], [address], [facility] 06/18/2024 15:01:55 06/13/19 75845: Therapeutic Activities (1:1) completed Na Gonzalez, PARASITOLOGY TEACHER [address], [place], [address], [facility] 06/13/2024 07:27:56 06/13/19 13755 Therapeutic Exercise (1:1) completed Na Gonzalez, PARASITOLOGY TEACHER [address], [place], [address], [facility] 06/13/2024 07:27:26 06/13/19 61889: Manual therapy completed Na Gonzalez, PARASITOLOGY TEACHER [address], [place], [address], [facility] 06/13/2024 07:27:52 06/10/19 92835 Therapeutic Exercise (1:1) completed Hector Pyser, PT [address], [place], [address], [facility] 05/31/2024 14:22:51 06/10/19 97890: Low complexity PT Eval completed Hector Pyser, PT [address], [place], [address], [facility] 05/31/2024 14:22:53 05/01/19 85723 Therapeutic Exercise (1:1) completed Hector Pyser, PT [address], [place], [address], [facility] 04/29/2024 14:50:39 05/01/19 77186: Low complexity PT Eval completed Hector Pyser, PT [address], [place], [address], [facility] 04/29/2024 14:50:41 12/04/19 Sports Knee 4&1 completed Juancarlos Iyer PA-C [address], [place], [address], [facility] 12/04/2023 11:27:50 06/08/19 24 Splint_Short Arm Fiberglass_11+ completed JUNI SHELTON [facility] 06/08/2023 13:25:25 Imaging Results None recorded. Procedure Notes None recorded. Medical Equipment None Reported. Allergies Allergen ID Allergen Name Allergen Category Reaction Reaction Severity Criticality Documentation Date Start Date Code Code System Note Provider Name and Address Organization Details Recorded Time 960893 penicilli n G benzathin e medicatio n Not available Not available Not available 04/23/20232012 7982 RxNorm GOMEZ LAMA [facility], [facility] 4 13:22:51 721927 Dilaudid medicatio n Not available Not available Not available 04/23/20232012 23163 3 RxNorm GOMEZ LAMA [facility], [facility] 4 13:22:48 081791 Bactrim medicatio n Not available Not available Not available 04/23/20232020 96460 9 RxNorm JACKIE CISNEROS [facility], [facility] 5 14:12:53 Medications Name Sig Start Date Stop Date Status Note LastModified by Organization Details LastModified Time celecoxib 200 mg capsule TAKE 1 CAPSULE BY MOUTH 2 TIMES DAILY. active Not Available Not Available No t Available cyclobenzap rine 10 mg tablet TAKE 1 TABLET BY MOUTH THREE TIMES A DAY 04/10 completed Not Available Not Available Not Available acetaminoph en 325 mg tablet TAKE 3 TABLETS BY MOUTH EVERY 6 HOURS 08/28 completed Not Available Not Available Not Available gabapentin 600 mg tablet 09/18 completed Not Available Not Available Not Available clindamycin HCl 300 mg capsule TAKE 2 CAPSULES BY MOUTH 1/2 HOUR PRIOR TO DENTAL APPOINTME NT active Not Available Not Available No t Available tizanidine 4 mg tablet TAKE 1 [...] No t Available clonazepam 0.5 mg tablet active Not Available Not Available Not Available gabapentin 400 mg capsule TAKE 1 CAPSULE BY MOUTH FOUR TIMES A DAY active Not Available Not Available No t Available terconazole 0.8 % vaginal cream INSERT 1 APPLICATO RFUL VAGINALLY BEDTIME FOR 3 DAYS active Not Available Not Available No t Available acetaminoph en 300 mg-codeine 30 mg [...] Available tramadol 50 mg tablet TAKE 1 TABLET (50 MG) BY MOUTH EVERY 6 (SIX) HOURS IF NEEDED FOR SEVERE PAIN FOR UP TO 5 DAYS. 09/18 completed Not Available Not Available Not Available acetaminoph en 500 mg tablet TAKE 2 TABLETS (1,000 MG) BY MOUTH 3 TIMES DAILY. active Not Available Not Available No t Available triamcinolo ne acetonide 0.1 % topical cream active Not Available Not Available Not Available bupropion HCl SR 100 mg tablet,12 hr sustained-r elease TAKE 1 TABLET BY MOUTH EVERY MORNING active Not Available Not Available No t Available prazosin 5 mg capsule TAKE 1 CAPSULE BY MOUTH EVERYDAY AT BEDTIME active Not Available Not Available No t Available terbinafine HCl 250 mg tablet TAKE 1 TABLET BY MOUTH EVERY DAY FOR 90 DAYS active Not Available Not Available No t Available propranolol 10 mg tablet TAKE 2 TABLETS BY MOUTH IN THE MORNING, 1 TABLET IN THE AFTERNOON AND 1 TABLET AT BEDTIME active Not Available Not Available No t Available cyanocobala min (vit B-12) [address] 1 TABLET UNDER THE TONGUE ONCE PER DAY. active Not Available Not Available No t Available nicotine (polacrilex ) 4 mg gum CHEW 1 EACH GUM IF NEEDED FOR SMOKING CESSATION . 12/03 completed Not Available Not Available Not Available baclofen 10 mg tablet TAKE 1 TABLET 3 TIMES A DAY NEEDED FOR 14 DAYS, FOR MUSCLE PAIN/ SPASMS. active Not Available Not Available No t Available nitrofurant oin macrocrysta l 100 mg capsule 04/10 completed Not Available Not Available Not Available lisinopril 10 mg tablet TAKE 2 TABLETS BY MOUTH EVERY DAY active Not Available Not Available No t Available nicotine 21 mg/[address] patch [address] 1 PATCH ON THE SKIN 1 TIME EACH DAY AT THE SAME TIME. 07/03 completed Not Available Not Available Not Available lisinopril 30 mg tablet TAKE 1 TABLET BY MOUTH EVERY DAY 09/18 completed Not Available Not Available Not Available docusate sodium 100 mg capsule TAKE 1 CAPSULE BY MOUTH TWICE A DAY 09/18 completed Not Available Not Available Not Available gabapentin 300 mg capsule TAKE 2 CAPSULES BY MOUTH 3 TIMES A DAY 09/18 completed Not Available Not Available Not Available [...] BY MOUTH EVERY DAY IN THE MORNING 09/18 completed Not Available Not Available Not Available hydrochloro thiazide 25 mg tablet TAKE [...] (40 MG) BY MOUTH ONCE PER DAY. 09/18 completed Not Available Not Available Not Available metformin ER 500 mg tablet,exte nded release 24 hr TAKE 2 TABLETS (1,000 MG) BY MOUTH WITH EVENING MEAL. DO NOT CRUSH, CHEW, OR SPLIT. active Not Available Not Available No t Available thiamine HCl (vitamin B1) 50 mg tablet TAKE 1 TABLET BY MOUTH EVERY DAY active Not Available Not Available No t Available oxycodone 5 mg tablet TAKE 1 TABLETS EVERY 8 HOURS NEEDED SEVERE PAIN active [...] MOUTH 3 TIMES DAILY FOR 10 DAYS. 09/18 completed Not Available Not Available Not Available topiramate 50 mg tablet active Not Available Not Available Not Available nitrofurant oin monohydrate /macrocryst als 100 mg capsule TAKE 1 CAPSULE BY MOUTH EVERY 12 HOURS FOR 5 DAYS 04/10 completed Not Available Not Available Not Available chlorhexidi ne gluconate 0.12 % mouthwash RINSE WITH 15 ML DAILY FOLLOWING TOOTH BRUSHING (MORNING AND NIGHT) AND SPIT OUT active Not Available Not Available No t Available varenicline tartrate 0.5 mg (11)-1 mg [...] 0.5-1 tablets every 4 hours PRN pain 09/18 completed Not Available Not Available Not Available diclofenac 1 % topical gel APPLY [...] 234 mg/1.5 mL intramuscul ar syringe INJECT 234 MG INTRAMUSC ULARLY ONCE A MONTH DIRECTED active Not Available [...] completed Not Available Not Available Not Available Vitamin D3 50 mcg (2,000 unit) capsule TAKE 1 CAPSULE BY MOUTH EVERY DAY active Not Available Not Available No t Available Eliquis 2.5 mg tablet TAKE 1 TABLET BY MOUTH TWO TIMES A DAY 09/18 completed Not Available Not Available Not Available naloxone 4 mg/actuatio n nasal spray [...] completed Not Available Not Available Not Available Zepbound 10 mg/0.5 mL subcutaneou s pen injector INJECT 1 PEN SUBCUTANE OUSLY ONCE WEEKLY DIRECTED active Not Available Not Available No t Available Zepbound 7.5 mg/0.5 mL subcutaneou s pen injector INJECT ONE PEN (=7.5 MG) SUBCUTANE OUSLY ONCE A WEEK DIRECTED 09/18 completed Not Available Not Available Not Available Omron Blood Pressure Monitor-3 Series kit USE TO CHECK BLOOD PRESSURE EVERY DAY DIRECTED 09/18 completed Not Available Not Available Not Available Vitals Date Recorded Body height Body mass index (BMI) Body weight Provider Name and Address Organization Details Last Updated DateTime 09/18/2024 157.48 cm 40.1 kg/m2 13519.73 g JACKIE CISNEROS [place] - [facility] 09/18/2024 10:54:52 Social History None recorded. Functional Status None recorded. Mental Status None recorded. Family History Nothing Reported. Medical History Condition Response Coronary Artery Disease N Anxiety/Depression Y Emphysema N COPD N Pacemaker N Vascular Disease N Heart Trouble N Gastrointestinal Disease N Autoimmune disease N Orthotics N Arthritis Y Blood Clot N Acid Reflux (GERD) Y Cancer N Stroke N Circulation Problems N Rheumatoid Arthritis N Arrhythmia N Headaches Y Fibromyalgia N Allergies/Hayfever N Breathing or lung disorders N Nerve Disorders N Thyroid Problems N Kidney/Bladder Problems N Anemia N Heart Attack (SC) N Cholesterol N Diabetes N Bleeding Disorder N Seizures/Epilepsy N AIDS/HIV N Congestive Heart Failure (CHF) N Asthma N Peripheral Vascular Disease N Sleep Apnea N Hepatitis N Heart Disease N Pulmonary Embolism N Hypertension Y Osteoporosis N Gynecological HistoryNo gynecological history recorded. Obstetrics History GPAL:G 0 P 0 0 0 0 Past Encounters Encounter ID Performer Location Encounter Start Date Encounter Closed Date Diagnosis/Indication Diagnosis SNOMED-CT Code Diagnosis ICD10 Code Diagnosis IMO Codes Diagnosis Note [id number] Scott Virgen MD [facility] [address] [place] [address] 06/08/2023 13:04:19 06/08/2023 13:29:48 Postoperative care 286712088 Z48.89 [id number] Cammy Ovalle, OTR/L,CHT [facility] [address] [place] [address] 06/19/2023 08:53:48 06/19/2023 09:24:40 Postoperative care 138659525 Z48.89 The surgical dressing is removed and [...] Mass of tara int of left wrist 4220695744 4230235 M25.832 The patient reports her difficulti es [...] digits with full sensation throughout the hand. [id number] MD Monet Leong [facility] [address] [place] [address] 07/04/2023 13:05:09 07/04/2023 14:32:21 Fracture of ankle 13673540 S82.92XD [id number] MD Monet Perry [facility] [address] [place] [address] 07/18/2023 09:13:32 08/07/2023 11:36:21 Ganglion cyst of left volar wrist 0015268176 5414341 M67.765 [id number] MD Monet Leong [facility] [address] [place] [address] 08/29/2023 12:57:16 09/29/2023 06:09:53 Fracture of ankle 60832418 S82.92XD [id number] ALFRED Souza [facility] [address] [place] [address] 12/04/2023 10:33:27 12/27/2023 15:37:25 Pain of left knee joint 9449357760 01078 M25.562 Osteoarthr itis of knee 264780679 M17.9 [id number] MD CAM PerryA - Monet [facility] [address] [place] [address] 03/14/2024 08:45:12 04/01/2024 15:12:53 Carpal tunnel syndrome of right wrist 2229147960 [facility] hospital G56.01 977312 [id number] MD VINOD Salguero [place] [address] [place] [address] 04/10/2024 13:38:45 04/23/2024 08:50:58 Osteoarthritis of left knee joint 2467093928 17635 M17.12 [id number] [id number] Hector Pyser, PT [facility] [address] [place] [address] 04/30/2024 16:44:12 04/30/2024 17:31:01 Osteoarthritis of knee 688581516 M17.12 [id number] Mati Trinh, SCARFER [facility] [address] [place] [address] 05/16/2024 08:50:29 05/30/2024 04:02:27 Osteoarthritis of left knee joint 5555465255 96225 M17.12 [id number] Hector Pyser, PT [facility] [address] [place] [address] 06/09/2024 16:25:39 06/09/2024 17:48:56 History of left total knee replacement 6118095180 952765 Z96.652 Z47.1 [id number] Alonzo Singleton PA-C [facility] [address] [place] [address] 06/10/2024 12:44:32 06/21/2024 19:41:07 Knee joint prosthesis present 5778274386 02 Z96.652 11523969 [id number] Júniorana Fudge, PARASITOLOGY TEACHER [facility] [address] [place] [address] 06/12/2024 11:16:51 06/12/2024 12:04:25 History of left total knee replacement 1011511510 931482 Z96.652 Z47.1 [id number] Na Fudge, PARASITOLOGY TEACHER [facility] [address] [place] [address] 06/18/2024 14:25:56 06/18/2024 17:18:52 History of left total knee replacement 5793983779 469027 Z96.652 Z47.1 [id number] Hector Sams, PT [facility] [address] [place] [address] 06/30/2024 10:08:37 06/30/2024 14:09:41 History of left total knee replacement 5621888716 479667 Z96.652 Z47.1 [id number] Na Gonzalez, PARASITOLOGY TEACHER [facility] [address] [place] [address] 07/08/2024 16:10:19 07/08/2024 17:23:29 History of left total knee replacement 7586517565 437733 Z96.652 Z47.1 [id number] MD [facility] Salguero [facility] [address] [place] [address] [place] [address] 09/18/2024 10:44:43 09/24/2024 14:26:09 History of total knee arthroplasty 8785840596 105 Z96.652 [id number] Julian Chuy, PT [facility] [address] [place] [address] 10/10/2024 15:00:25 10/10/2024 16:11:43 Pain of left knee joint [id number] M25.562 [id number] Krystina Galo, PARASITOLOGY TEACHER [facility] [address] [place] [address] 10/15/2024 15:18:59 10/15/2024 15:59:03 Pain of left knee joint [id number] M25.562 [id number] Julian Chuy, PT [facility] [address] [place] [address] 10/24/2024 15:07:10 10/24/2024 16:05:18 Pain of left knee joint [id number] M25.562 [id number] Julian Chuy, PT [facility] [address] [place] [address] 11/06/2024 15:04:33 11/06/2024 16:31:36 Pain of left knee joint [id number] M25.562 [id number] Health Concerns Section Related Observation LastModified by Organization Detai ls LastModified Time None Recorded Concern Status LastModified by Organization Details LastModified Time None Recorded Advance Directives Directive None Recorded Payers Insurance Date Sequence Insurance Name Policy Number Policy Fernandez Covered Member ID Fernandez Member ID Guarantor Name 11/08/2024 1 [facility] - DOS ON OR AFTER 2022 - ONE CARE (MEDICARE REPLACEMENT/ADV ANTAGE - HMO) Atiya Dotson [id number] Atiya Dotson Notes Date Note Type Note Provider Name and Address Organization Details Recorded Time 10/10/2024 text/html Patient is a 49 year old female, presenting today with L knee pain. Pt with h/o L TKA 05/23/24. Pt states she did about 5 appts of outpt PT after L TKA, then didn't follow thru with remaining appts though tried to do it perform HEP best she could. She states L knee pain increases with prolonged amb, standing, and stair mobility, improves with rest. Recent XRAYs negative (per09/18/24 Dr Walker) Julian Vera, PT [address], [place], [address], [facility] 10/14/2024 07:21:32 10/15/2024 text/html Pt reports knee is fair, more soreness. Krystina Galo, PARASITOLOGY TEACHER [address], [place], [address], [facility] 10/16/2024 16:19:29 10/24/2024 text/html Pt reports L knee has buckled a few times today (not really sure why), and also reporting L knee is still getting sore. Julian Vera, PT [address], [place], [address], [facility] 10/25/2024 23:08:14 11/06/2024 text/html Pt states L knee not really painful anymore though still has buckling episodes. Julian Vera, PT [address], [place], [address], [place] [facility] 11/09/2024 20:04:58 OBGyn Episode No OBEpisode recorded.
--- OUTSIDE RECORDS SUMMARY | 2024-12-10 03:18 | XMS_ITS | Encounter Summary ---
Author Organization [employer] Address [address] [place] [address] 7 [place] [address] Care Team Providers Care Casket Coverer Name Role Phone Maddie Kim MD Primary Care Provider [phone] Encounter Details Date Type Department Care Team ([facility] Contact Info) Description 08/10/2024 Orders Only [facility] MEDICINE [address] [place], [place] [phone] Maddie Kim MD 230 [place], [place] [phone] Social History Tobacco Use Types Packs/Day Years [...] documented as of this encounter Care Teams Casket Coverer Relationship Specialty Start Date End Date Maddie Kim MD [address] [place] [address] PCP - General Family Medicine 07/12/20 Willie Gage 01/17/22 documented as of this encounter
--- OUTSIDE RECORDS SUMMARY | 2024-12-10 03:18 | XMS_ITS | Encounter Summary ---
Author Organization [facility] Address [address] [facility] [address] [facility] [address] [place] [address] Encounters * CPT with Medical instED at [facility] on 2024-10-26 { reasonForRequest : back pain , patientReports : , denies :[ Worst Headache of life , New onset of vision loss , Sudden onset -unilateral weakness/gait disturbance , Fall with head strike and altered LOC ,"New onset of Slurred speech or difficulty finding words , Sudden Mental status changes , Head pain with fever chills and neck pain , Seizure activity , Head pain not relieved by medication greater than 8 hours , Head pain greater than 8 hours -unrelated to falls or injury , Head pain with nausea vomiting , Dizziness with positional change , Sensitive to light ], chiefComplaints : Back Pain", pmh : Bipolar Disorder, Gastroesophageal Reflux Disease (GERD), Hypertension, Anemia, Joint Replacement (e.g., Hip, Knee), Chronic Back Pain , allergies : Dilantin, Sulfamethoxazole, Penicillins, Penicillin G Benzathine, Penicillin G Procaine , otherAllergies :null, painAssessment : , visitOutcome : ,&q uot;additionalComments : 49 y.o female complains of Back Pain\nPatient making self referral\npatient complaining of lower back pain\nhx of herniated discs\ntaken 2000mg of Tylenol and baclofen today- with some relief but still 7/10 pain \nno injuries, falls, or unusual exercise noted. \ndenies any kidney issues and not any blood thinners. \nPatient requesting [facility] visit for assessmentof pain \n\nI provided information on the mobile health provider response time and advised the patient and/or caregiver to monitor reported signs and symptoms. I discussed the warning signs of when to seek emergency care. } [facility] responds to the listed address for a 49 yof w/ a c/c of back pain. Upon arrival on scene, pt answers the door to let [facility] inside her small and well- kept apartment she shares w/ her two very friendly cats. She is generally well- appearing and pleasant and is fully ambulatory. No ashen or meade color is noted, she is not in respiratory distress, and she is not bleedinganywhere. She is able to answer all questions appropriately and is moving all four extremities in a smooth and coordinated manner. Pt is c/o an increase in her chronic back pain for the past two days. She is using OTC Tylenol and her prescribed baclofen w/ little relief. She is hoping for a toradolshot today to help get her pain under control. She recently started school again and has added stress, plus sitting for longer periods of time doing classes and school work. She denies numbness/tingling into her back, hips, legs, and feet and no bladder or bowel incontinence is reported. [facility] obtains a focused assessment on pt's back. No visible or gross abnormalities are noted and pt has full ROM w/ some pain relief w/ back extension. Tenderness upon palpation to the paraspinous regions L and R of L2-L5. No discoloration, bruising, or rash are noted and area is normothermic to touch. [facility] discusses using cold packs and moist heat as well as a topical analgesic to help w/ the pain.[facility] contacts [facility] and discusses the above. After confirming no known kidney issues, GI bleeds, or anticoagulation and reconfirming allergies, [facility] orders 15mg toradol IM and recommends pt contact her PCP. [facility] administers 15mg toradol in the R deltoid using aseptic technique. Red flag warning signs are discussed w/ the pt and she thanks [facility] for coming. [facility] is clear. Report completed by FAVIO Ellington [id number]. IV_(FLUIDS_AND/OR_MEDICATION), MEDICATION_IM, ORAL_MEDICATION, EKG [facility]24-10[facility]26
--- OUTSIDE RECORDS SUMMARY | 2024-12-10 03:18 | XMS_ITS | Encounter Summary ---
Author Organization [employer] Address [address] [place] [address] 7 [place] [address] Care Team Providers Care Radio Director Name Role Phone Maddie Kim MD Primary Care Provider [phone] Reason for Visit * Reason Onset Date Comments Nutrition Medication Question 05/30/2023 Encounter Details Date Type Department Care Team ([facility] Contact Info) Description 05/30/2023 Telephone [facility] MEDICINE 230 [place], [place] [phone] Maddie Kim MD 230 [place], [place] [phone] Nutrition Medication Question Social History Tobacco Use [...] as of this encounter Care Teams Radio Director Relationship Specialty Start Date End Date Maddie Kim MD [address] [place] [address] PCP - General Family Medicine 07/12/20 Willie Gage 01/17/22 documented as of this encounter
--- OUTSIDE RECORDS SUMMARY | 2024-12-10 03:18 | XMS_ITS | Encounter Summary ---
Author Organization [facility] Address [address] [place] [address] Encounters * CPT with Medical instED at [facility] on 2024-11-22 { reasonForRequest : Patient has a Migraine headache , patientReports : , denies :[ Worst Headache of life , New onset of vision loss", Sudden onset -unilateral weakness/gait disturbance , Fall with head strike and altered LOC , New onset of Slurred speech or difficulty finding words , Sudden Mental status changes , Head pain with fever chills and neck pain , Seizure act ivity ], chiefComplaints : Headache , pmh : Bipolar Disorder, Gastroesophageal Reflux Disease (GERD), Hypertension, Anemia, Joint Replacement (e.g., Hip, Knee), Chronic Back Pain, Migraine , allergies : Dilantin, Sulfamethoxazole, Penicillins, Penicillin G Benzathine, Penicillin G Procaine , otherAllergies :null, painA ssessment : , visitOutcome : , additionalComments :"49 y.o female complains of Headache\nPatient calling reporting migraine headache that she awokewith around 0400. Patient reports she took Tylenol [...] to seek emergency care -Bobo Cordova RN } Arrived to find female in her residence. Patient aox4 GCS 15 skin pink warm and dry patient complaining of a migraine pmx of migraines. Not on any medication for it. Not currently followed by neurology. Stated that it started approx 0400. Patient attempted OTC meds without any change. +photophobia + Nausea. No vomiting. Patient VS as noted. No red flag symptoms. [facility] contacted advised 30mg toradolIM. 30mg toradol given in right deltoid without incident. Patient in agreement with plan. IV_(FLUIDS_AND/OR_MEDICATION), MEDICATION_IM, EKG, POC_FLU_STREP, COVID_TEST Written by Medical instED on 2024-11-22
--- OUTSIDE RECORDS SUMMARY | 2024-12-10 03:18 | XMS_ITS | Encounter Summary ---
Author Organization [employer] Address [address] [place] [address] 7t [place] [address] Care Team Providers Care Straw Hat Washer Operator Name Role Phone Maddie Kim MD Primary Care Provider [phone] Encounter Details Date Type Department Care Team ([facility] st Contact Info) Description 05/15/2023 Orders Only [facility] MEDICINE 230 [place], [place] [phone] Maddie Kim MD [address] [place], [place] [phone] Social History Tobacco Use Types Packs/Day Years [...] documented as of this encounter Care Teams Straw Hat Washer Operator Relationship Specialty Start Date End Date Maddie Kim MD [address] [place] [address] PCP - General Family Medicine 07/12/20 Willie Gage 01/17/22 documented as of this encounter
--- OUTSIDE RECORDS SUMMARY | 2024-12-10 03:18 | XMS_ITS | Continuity of Care Document ---
Author Name instED, Medical Address [address] [place] [address] Organization Unknown Address [address] [place] [address] Medications No known medications Problems No known problems
--- OUTSIDE RECORDS SUMMARY | 2024-12-10 03:18 | XMS_ITS | Encounter Summary ---
Author Organization [employer] Address [address] [place] [address] 7t [place] [address] Care Team Providers Care Gis Physical Scientist Name Role Phone Maddie Kim MD Primary Care Provider [phone] Encounter Details Date Type Department Care Team ([facility] st Contact Info) Description 06/13/2023 Orders Only [facility] MEDICINE 230 [place], [place] [phone] Maddie Kim MD 230 [place], [place] [phone] Social History Tobacco Use Types Packs/Day Years [...] documented as of this encounter Care Teams Gis Physical Scientist Relationship Specialty Start Date End Date Maddie Kim MD 230 [place] [address] PCP - General Family Medicine 07/12/20 Willie Gage 01/17/22 documented as of this encounter
--- OUTSIDE RECORDS SUMMARY | 2024-12-10 03:18 | XMS_ITS | Encounter Summary ---
Author Organization [employer] Address [address] [place] [address] 7 [place] [address] Care Team Providers Care Lemon Grower Name Role Phone Maddie Kim MD Primary Care Provider [phone] Encounter Details Date Type Department Care Team (Late st Contact Info) Description 03/30/2022 Abstract [facility] MEDICINE 230 [place] [address] Maddie Kim MD 230 [place] [address] Social History Tobacco Use Types Packs/Day Years [...] on filedocumented in this encounter Care Teams Lemon Grower Relationship Specialty Start Date End Date Maddie Kim MD [address] [place] [address] PCP - General Family Medicine 07/12/20 Willie Gage 01/17/22 documented as of this encounter
--- OUTSIDE RECORDS SUMMARY | 2024-12-10 03:18 | XMS_ITS | Encounter Summary ---
Author Organization [employer] Address [address] [place] [address] 7 [place] [address] Care Team Providers Care Credit And Collections Representative Name Role Phone Maddie Kim MD Primary Care Provider [phone] Encounter Details Date Type Department Care Team ([facility] st Contact Info) Description 07/05/2022 Orders Only [facility] MEDICINE [address] [place], [place] [phone] Maddie Kim MD 230 [place], [place] [phone] Social History Tobacco Use Types Packs/Day Years [...] documented as of this encounter Care Teams Credit And Collections Representative Relationship Specialty Start Date End Date Maddie Kim MD [address] [place] [address] PCP - General Family Medicine 07/12/20 Willie Gage 01/17/22 documented as of this encounter
--- OUTSIDE RECORDS SUMMARY | 2024-12-10 03:18 | XMS_ITS | Encounter Summary ---
Author Organization [facility] Address [address] [place] [address] Encounters * CPT with Medical instED at [facility] on 2024-10-05 { reasonForRequest : back pain , patientReports : , denies :[ Falls with head strike and LOC , Falls from a standing position, no LOC, patient is amnestic to the event , Falls with isolated injury and deformity noted to limb , Falls with inability to move post fall , Cool extremities after fall or injury , Weakness with fall, able to move all extremities ], chiefComplaints :"Back Pain , pmh : Bipolar Disorder, Gastroesophageal Reflux Disease (GERD), Hypertension, Anemia, Joint Replacement (e.g., Hip, Knee) , allergies : Dilantin , Sulfamethoxazole, Penicillins, Penicillin G Benzathine, Penicillin G Procaine , otherAllergies :null, painAssessment : , visitOutcome : ,&quo t;additionalComments : 49 y.o female complains of Back Pain since this AM\n\nPt reports feeling unwell with upper/lower back pain - \ I tried working and just can't do it.\ \n\nDenies any new injuries/trauma - Denies bruising and swelling\n\nDenies fever\n\nReports taking Tylenol and \ muscle relaxers\ with no relief\n\nPain management requested\n\n\nI provided information on the mobile health provider response time and advised the patient and/or caregiver to torrey tor reported signs and symptoms. I discussed the warning signs of when to seek emergency care. } Pt is a 49y.o. female requesting a [...] Sunday. Red Flag warnings were gone over. IV_(FLUIDS_AND/OR_MEDICATION), MEDICATION_IM, ORAL_MEDICATION, EKG Written by Medical instED on 2024-10-05
--- OUTSIDE RECORDS SUMMARY | 2024-12-10 03:19 | XMS_ITS | Encounter Summary ---
Author Organization [employer] Address [address] [facility] 7t [place] [address] Care Team Providers Care Paint Mixer Machine Name Role Phone Maddie Kim MD Primary Care Provider [phone] Reason for Visit * Reason Comments Med Refill Encounter Details Date Type Department Care Team ([facility] st Contact Info) Description 04/05/2023 Refill [facility] [address] [place] [address] [phone] Isac Gonzalez MD [address] [place] [address] [phone] Chronic bilateral low back pain without sciatica [...] - 04/06/2023 12:46 PM EST TC to [facility] pharmacy, T3 RX written 03/29/23 for [...] documented as of this encounter Care Teams Paint Mixer Machine Relationship Specialty Start Date End Date Maddie Kim MD [address] [place] [address] PCP - General Family Medicine 07/12/20 Willie Gage 01/17/22 documented as of this encounter
--- OUTSIDE RECORDS SUMMARY | 2024-12-10 03:19 | XMS_ITS | Continuity of Care Document ---
Author Name [facility], Medical Address [address] [place] [address] Organization Unknown Address [address] [place] [address] Medications No known medications Problems No known problems
--- OUTSIDE RECORDS SUMMARY | 2024-12-10 03:19 | XMS_ITS | Encounter Summary ---
Author Organization [employer] Address [address] [place] [address] 7 [place] [address] Care Team Providers Care Management Consulting Name Role Phone Maddie Kim MD Primary Care Provider [phone] Reason for Referral * Consultation (Routine) - Closed Specialty Diagnoses / Procedures Referred By Sindi mejia Referred To Contact Nutrition Diagnoses Class 2 severe obesity with serious comorbidity and body mass index (BMI) of 39.0 to 39.9 in adult, unspecified obesity type Maddie Kim MD [address] [place] [address] Phone: tel: fax: Referral ID Status Reason Start Date Expiration Date V isits Requested Visits Authorized [id number] Closed Consult and Treat 04/06/2023 04/05/2024 1 1 Encounter Details Date Type Department Care Team (Late st Contact Info) Description 04/06/2023 Orders Only [facility] MEDICINE [address] [place] [address] [phone] Maddie Kim MD [address] [place] [address] [phone] Class 2 severe obesity with serious comorbidity [...] PM EDT Narrative 05/26/2023 3:06 PM EDT [address] [place] [address] Mammography Report Signed Patient: Atiya Esparza MR#: [id number] : 1975 Acct:[id number] Age/Sex: 47 / F ADM Date: 05/04/23 [facility]: Maddie Kim MD Ordering Physician: Maddie Kim Results: 1Negative Date of Service: 05/04/23 Follow Up: 1 Year From [facility] Mammogram Procedure(s): MM tomosynthesis screening BI Accession Number(s): [id number] cc: Maddie Kim EXAMINATION: MM SCREENING DIGITAL [...] in OV> 05/26/23 1503 DD/ 1602 TD/TT: Data Processing Control Clerk: Procedure Note Donotuseinterpreter, Image - 05/26/[address] [place] [address] Mammography Report Signed Patient: Zain Esparza#: [id number] : 1975Acct:[id number] Age/Sex: 47 / FADM Date: 05/04/23 Loc: [facility] Attending Dr: Maddie Kim MD Ordering Physician: Jaja Kimults: 1Negative Date of Service: 05/04/23Follow Up: 1 Year From [facility] Mammogram Procedure(s): MM tomosynthesis screening BI Accession Number(s): [id number] cc: Maddie Kim EXAMINATION: MM SCREENING DIGITAL [...] in OV> 05/26/23 1503 DD/ 1602 TD/TT: Data Processing Control Clerk: Mdadie Kim MD IMG BI PROCEDURES Final Result documented in this encounter Visit Diagnoses Diagnosis Class 2 severe obesity with serious comorbidity and body mass index (BMI) of 39.0 to 39.9 in adult, unspecified obesity type- Primary documented in this encounter Additional Health Concerns Assessment Noted Time PHQ-9 Depression Total Score: 0 05/30/19 23 3:26 PM EDT documented as of this encounter Care Teams Management Consulting Relationship Specialty Start Date End Date Maddie Kim MD [address] [place] [address] PCP - General Family Medicine 07/12/20 Willie Gage 01/17/22 documented as of this encounter
--- OUTSIDE RECORDS SUMMARY | 2024-12-10 03:19 | XMS_ITS | Encounter Summary ---
Author Organization [employer] Address [address] [place] [address] 7 [place] [address] Care Team Providers Care Tucking Machine Operator Name Role Phone Maddie Kim MD Primary Care Provider [phone] Reason for Visit * Reason Onset Date Comments Med Refill 04/12/2023 Encounter Details Date Type Department Care Team ([facility] st Contact Info) Description 04/12/2023 Refill [facility] MEDICINE 230 [place], [place] [phone] Maddie Kim MD 230 [place], [place] [phone] Chronic bilateral low back pain without sciatica [...] documented as of this encounter Care Teams Tucking Machine Operator Relationship Specialty Start Date End Date Maddie Kim MD [address] [place] [address] PCP - General Family Medicine 07/12/20 Willie Gage 01/17/22 documented as of this encounter
--- OUTSIDE RECORDS SUMMARY | 2024-12-10 03:19 | XMS_ITS | Encounter Summary ---
Author Organization [employer] Address [address] [facility] 7t [place] [address] Care Team Providers Care Loan Inspector Name Role Phone Maddie Kim MD Primary Care Provider [phone] Reason for Visit * Reason Comments Med Refill Encounter Details Date Type Department Care Team ([facility] st Contact Info) Description 03/18/2023 Refill [facility] [address] [place] [phone] Maddie Kim MD [address] [place] [address] [phone] Social History Tobacco Use Types Packs/Day Years [...] Date End Date Maddie Kim MD [address] [place] [address] PCP - General Family Medicine 07/12/20 Willie Ggae 01/17/22 documented as of this encounter
--- OUTSIDE RECORDS SUMMARY | 2024-12-10 03:19 | XMS_ITS | Encounter Summary ---
Author Organization [employer] Address [address] [place] [address] 7 [place] [address] Care Team Providers Care Tower Foreman Name Role Phone Maddie Kim MD Primary Care Provider [phone] Reason for Visit * Reason Comments Med Change Request Encounter Details Date Type Department Care Team ([facility] Contact Info) Description 07/25/2024 Refill [facility] MEDICINE 230 [place], [place] [phone] Maddie Kim MD 230 [place], [place] [phone] Social History Tobacco Use Types Packs/Day Years [...] documented as of this encounter Care Teams Tower Foreman Relationship Specialty Start Date End Date Maddie Kim MD [address] [place] [address] PCP - General Family Medicine 07/12/20 Willie Gage 01/17/22 documented as of this encounter
--- OUTSIDE RECORDS SUMMARY | 2024-12-10 03:19 | XMS_ITS | Encounter Summary ---
Author Organization [employer] Address [address] [facility] 7t [place] [address] Care Team Providers Care Monitoring Engineer Name Role Phone Maddie Kim MD Primary Care Provider [phone] Reason for Visit * Reason Comments Med Refill Encounter Details Date Type Department Care Team ([facility] st Contact Info) Description 04/12/2023 Refill [facility] [address] [place] [address] [phone] Isac Gonzalez MD [address] [place] [address] [phone] Chronic bilateral low back pain without sciatica [...] documented as of this encounter Care Teams Monitoring Engineer Relationship Specialty Start Date End Date Maddie Kim MD [address] [place] [address] PCP - General Family Medicine 07/12/20 Willie Gage 01/17/22 documented as of this encounter
--- OUTSIDE RECORDS SUMMARY | 2024-12-10 03:19 | XMS_ITS | Encounter Summary ---
Author Organization [employer] Address [address] [place] [address] 7t [place] [address] Care Team Providers Care Independent Trader Name Role Phone Maddie Kim MD Primary Care Provider [phone] Encounter Details Date Type Department Care Team ([facility] Contact Info) Description 01/02/2024 Orders Only [facility] MEDICINE [address] [place], [place] [phone] Maddie Kim MD 230 [place], [place] [phone] Social History Tobacco Use Types Packs/Day Years [...] documented as of this encounter Care Teams Independent Trader Relationship Specialty Start Date End Date Maddie Kim MD [address] [place] [address] PCP - General Family Medicine 07/12/20 Willie Gage 01/17/22 documented as of this encounter
--- OUTSIDE RECORDS SUMMARY | 2024-12-10 03:19 | XMS_ITS | Encounter Summary ---
Author Organization [employer] Address [address] [place] [address] 7t [place] [address] Care Team Providers Care Process Cheese Cooker Name Role Phone Maddie Kim MD Primary Care Provider [phone] Encounter Details Date Type Department Care Team ([facility] Contact Info) Description 12/10/2024 Orders Only GENERIC EXTERNAL DATA DEPARTMENT Provider, Generic External Data Social History Tobacco Use Types Packs/Day Years [...] housing situation today? I have salome benjamin 09/08/[address] you li [...] Q2 Not on file 09/08/2024 Comments No Sex and Gender Information Value Date Recorded Sex Assigned at Female 12/19/2021 10:17 AM EDT Legal Sex Female 10:17 AM EDT Gender Identity Female 12/19/2021 10:17 AM EDT Sexual Orientation Straight 12/19/2021 10 :17 AM EDT documented as of this encounter Plan of Treatment Pending Results Name Type Priority Associated Diagnoses Date /Time Urinalysis, Complete, with Reflex to Culture Lab Routine 12/10/2024 2:5 4 AM EDT Comprehensive Metabolic Panel Lab Routine 12/10/2024 2:53 AM EDT Ethanol Lab Routine 12/10/2024 2:5 3 AM EDT documented as of this encounter Procedures Procedure Name Priority Date/Time Associated Diagnosis Comments URINALYSIS, COMPLETE, WITH REFLEX TO CULTURE Routine 12/10/2024 2:54 AM EDT DRUG MONITOR, PANEL 1, SCREEN, URINE Routine 12/10/2024 2:54 AM EDT ETHANOL Routine 12/10/2024 2:53 AM EDT CBC WITH AUTO DIFFERENTIAL Routine 12/10/2024 2:53 AM EDT COMPREHENSIVE METABOLIC PANEL Routine 12/10/2024 2:53 AM EDT documented in this encounter Results * (ABNORMAL) Drug Monitoring, Panel 1, Screen, Urine (12/10/2024 2:54 AM EDT) Opiate Screen Urine Not Detected Not Detect [facility] Comment:Opiate cut-off is 30 0 ng/mL.Positive results are unconfirmed and should not be used fornon-medical purposes. Barbiturates, Urine Not Detected Not Detect [facility] Comment:Barbiturate cut-off is 200 ng/mL.Positive results are unconfirmed and should not be used fornon-medical purposes. Phencyclidine Screen Urine Not Detected Not Detect [facility] Comment:Phencyclidine cut-of f is 25 ng/mL.Positive results are unconfirmed and should not be used fornon-medical purposes. Amphetamine Screen Urine Not Detected Not Detect [facility] Comment:Amphetamine cut-off is 1000 ng/mL.Positive results are unconfirmed and should not be used fornon-medical purposes. Benzodiazepines Screen Urine Not Detected Not Detect [facility] Comment:Benzodiazepine cut-o ff is 200 ng/mL.Positive results are unconfirmed and should not be used fornon-medical purposes. Cocaine Screen Urine Not Detected Not Detect [facility] Comment:Cocaine cut-off is 3 00 ng/mL.Positive results are unconfirmed and should not be used fornon-medical purposes. Cannabinoid Screen Urine POSITIVE(A) Not Detect [facility] Comment:Cannabinoid cut-off is 50 ng/mL.Positive results are unconfirmed and should not be used fornon-medical purposes. Methadone Screen, Urine Not Detected Not Detect ng/mL [facility] Comment:Methadone cut-off is 300 ng/mL.Positive results are unconfirmed and should not be used fornon-medical purposes. FENTANYL URINE Not Detected Not Detect [facility] Comment:Fentanyl cut-off is 1 ng/mL.Positive results are unconfirmed and should not be used fornon-medical purposes. Oxycodone Urine Screen Not Detected Not Detect ng/mL [facility] Comment:Oxycodone cut-off is 100 ng/mL.Positive results are unconfirmed and should not be used fornon-medical purposes. Buprenorphine Screen Not Detected Not Detect ng/mL [facility] Comment:Buprenorphine cut-of f is 5 ng/mL.Positive results are unconfirmed and should not be used fornon-medical purposes. 12/10/2024 2:54 AM EDT 12/10/2024 3:00 AM EDT us Generic External Data Provider LAB URINE ORDERAB LES Final Result [facility] [address] [place], [place] [phone] * (ABNORMAL) CBC auto differential (12/10/2024 2:53 AM EDT) White Blood Count 8.5 4.8 - 10.8 X10*3/uL [facility] Red Blood Count 5.24 4.20 - 5.50 X10*6/uL [facility] Hemoglobin 12.9 12.0 - 16.0 g/dl [facility] Hematocrit 40.0 37.0 - 47.0 % [facility] Mean Corpuscular Volume 76.3(L) 80.0 - 98.0 fL [facility] Mean Corpuscular Hemoglobin 24.6(L) 27.0 - 33.0 pg [facility] Mean Corpuscular HGB Conc 32.3 31.0 - 35.0 g/dl [facility] Red Cell Distribution Width 12.9 11.0 - 16.0 % [facility] Platelet Count 299 160 - 400 X10*3/uL [facility] Mean Platelet Volume 10.1 9.4 - 12.3 fL [facility] Neutrophils Percent Auto 61.9 45 - 73 % [facility] Imm Gran Pct Auto 0.2 0.0 - 0.4 % [facility] Lymphocytes Percent Auto 26.2 20 - 40 % [facility] Monocytes Percent Auto 8.6 2 - 11 % [facility] Eosinophils Percent Auto 2.6 0 - 4 % [facility] Basophils Percent Auto 0.5 0 - 2 % [facility] NRBC Pct Auto 0.0 0.0 - 0.2 /100WBC [facility] Neutrophils Absolute Auto 5.3 2.0 - 8.3 x10*3/uL [facility] Imm Gran Abs Auto 0.02 0.00 - 0.03 X10*3/uL [facility] Lymphocytes Absolute Auto 2.2 1.2 - 4.9 X10*3/uL [facility] Monocytes Absolute Auto 0.7 0.1 - 1.2 X10*3/uL [facility] Eosinophils Absolute Auto 0.2 0.0 - 0.4 X10*3/uL [facility] Basophils Absolute Auto 0.0 0.0 - 0.2 X10*3/uL [facility] NRBC Abs Auto 0.000 0.0 - 0.012 X10*3/uL [facility] 12/10/2024 2:53 AM EDT 12/10/2024 3:00 AM EDT us Generic External Data Provider LAB BLOOD ORDERAB LES Final Result [facility] [address] [place] [address] [phone] documented in this encounter Visit Diagnoses Not on filedocumented in this encounter Additional Health Concerns Assessment Noted Time PHQ-9 Depression Total Score: 9 07/05/19 25 6:48 AM EDT documented as of this encounter Care Teams Process Cheese Cooker Relationship Specialty Start Date End Date Maddie Kim MD 230 [place] [address] PCP - General Family Medicine 07/12/20 Willie Gage 01/17/22 documented as of this encounter
--- OUTSIDE RECORDS SUMMARY | 2024-12-10 03:19 | XMS_ITS | Encounter Summary ---
Author Organization [employer] Address [address] [place] [address] 7t [place] [address] Care Team Providers Care Meteorology Teacher Name Role Phone Maddie Kim MD Primary Care Provider [phone] Reason for Visit * Reason Onset Date Comments Med Refill 05/10/2023 Encounter Details Date Type Department Care Team ([facility] st Contact Info) Description 05/10/2023 Refill [facility] MEDICINE 230 [place], [place] [phone] Maddie Kim MD [address] [place], [place] [phone] Chronic bilateral low back pain without sciatica [...] documented as of this encounter Care Teams Meteorology Teacher Relationship Specialty Start Date End Date Maddie Kim MD [address] [place] [address] PCP - General Family Medicine 07/12/20 Willie Gage 01/17/22 documented as of this encounter
--- OUTSIDE RECORDS SUMMARY | 2024-12-10 03:19 | XMS_ITS | Encounter Summary ---
Author Organization [employer] Address [address] [place] [address] 7 [place] [address] Care Team Providers Care Wash Crew Person Name Role Phone Maddie Kim MD Primary Care Provider [phone] Reason for Visit * Reason Onset Date Comments Referral 05/05/2024 Encounter Details Date Type Department Care Team ([facility] Contact Info) Description 05/05/2024 Telephone [facility] MEDICINE [address] [place], [place] [phone] Maddie Kim MD 230 [place], [place] [phone] Referral Social History Tobacco Use Types Packs/Day [...] 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
--- OUTSIDE RECORDS SUMMARY | 2024-12-10 03:19 | XMS_ITS | Encounter Summary ---
Author Organization [employer] Address [address] [place] [address] 7t [place] [address] Care Team Providers Care Brake Drum Lathe Operator Name Role Phone Maddie Kim MD Primary Care Provider [phone] Encounter Details Date Type Department Care Team ([facility] st Contact Info) Description 03/19/2023 Orders Only [facility] MED[facility]INE 230 [place], [place] [phone] Maddie Kim MD 230 [place], [place] [phone] Herniated lumbar intervertebral disc (Primary Dx) Social [...] documented as of this encounter Care Teams Brake Drum Lathe Operator Relationship Specialty Start Date End Date Maddie Kim MD [address] [place] [address] PCP - General Family Medicine 07/12/20 Willie Gage 01/17/22 documented as of this encounter
--- OUTSIDE RECORDS SUMMARY | 2024-12-10 03:19 | XMS_ITS | Encounter Summary ---
Author Organization [employer] Address [address] [place] [address] 7 [place] [address] Care Team Providers Care Personnel Placement Specialist Name Role Phone Maddie Kim MD Primary Care Provider [phone] Reason for Visit * Reason Onset Date Comments Medication Question 07/09/2024 Encounter Details Date Type Department Care Team ([facility] Contact Info) Description 07/09/2024 Telephone [facility] MEDICINE [address] [place], [place] [phone] Maddie Kim MD 230 [place], [place] [phone] Medication Question Social History Tobacco Use Types [...] 06/18/24 per PCP note. Patent spoke to clip on sunglasses inspector's today and reported that [facility] is unable [...] documented as of this encounter Care Teams Personnel Placement Specialist Relationship Specialty Start Date End Date Maddie Kim MD 230 [place] [address] PCP - General Family Medicine 07/12/20 Willie Gage 01/17/22 documented as of this encounter
--- OUTSIDE RECORDS SUMMARY | 2024-12-10 03:19 | XMS_ITS | Encounter Summary ---
Author Organization [employer] Address [address] [place] [address] 7t [place] [address] Care Team Providers Care Newsagent Name Role Phone Maddie Kim MD Primary Care Provider [phone] Encounter Details Date Type Department Care Team ([facility] Contact Info) Description 11/21/2024 Orders Only [facility] MEDICINE [address] [place], [place] [phone] Maddie Kim MD 230 [place] [address] Social History Tobacco Use Types Packs/Day Years [...] documented as of this encounter Care Teams Newsagent Relationship Specialty Start Date End Date Maddie Kim MD [address] [place] [address] PCP - General Family Medicine 07/12/20 Willie Gage 01/17/22 documented as of this encounter
--- OUTSIDE RECORDS SUMMARY | 2024-12-10 03:19 | XMS_ITS | Encounter Summary ---
Author Organization [employer] Address [address] [place] [address] 7 [place] [address] Care Team Providers Care Emt/Dispatcher Name Role Phone Maddie Kim MD Primary Care Provider [phone] Reason for Visit * Reason Onset Date Comments Hospital Follow-up 03/28/2024 Encounter Details Date Type Department Care Team ([facility] Contact Info) Description 03/28/2024 Telephone [facility] MEDICINE [address] [place] [address] [phone] Maddie Kim MD 230 [place], [place] [phone] Hospital Follow-up Social History Tobacco Use Types [...] from pt requesting a HDF appt. Hospital: [facility] Date of admission: 03/24/24 Discharge date: 03/27/24 Diagnosed: Hyponatremia *Send message to [facility] Clinical Care Coordinators documented in this encounter Plan of Treatment Not on file documented as of this encounter Visit Diagnoses Not on filedocumented in this encounter Additional Health Concerns Assessment Noted Time PHQ-9 Depression Total Score: 3 06/15/19 24 11:48 AM EDT documented as of this encounter Care Teams Emt/Dispatcher Relationship Specialty Start Date End Date Maddie Kim MD [address] [place] [address] PCP - General Family Medicine 07/12/20 Willie Gage 01/17/22 documented as of this encounter
--- OUTSIDE RECORDS SUMMARY | 2024-12-10 03:19 | XMS_ITS | Encounter Summary ---
Author Organization [employer] Address [address] [place] [address] 7t [place] [address] Care Team Providers Care Catcher Filter Tip Name Role Phone Maddie Kim MD Primary Care Provider [phone] Reason for Referral * Consultation (Urgent) - Closed Specialty Diagnoses / Procedures Referred By Sindi mejia Referred To Contact Cardiology Diagnoses Primary hypertension Tachycardia Other chest pain Maddie Kim MD [address] [place] [address] Phone: tel: fax: [facility] Referral ID Status Reason Start Date Expiration Date V isits Requested Visits Authorized [id number] Closed Specialty Services Required 05/06/2024 05/06/2025 1 1 Encounter Details Date Type Department Care Team (Late st Contact Info) Description 05/06/2024 Orders Only [facility] MEDICINE 230 [place], [place] [phone] Maddie Kim MD [address] [place], [place] [phone] Primary hypertension (Primary Dx); Tachycardia; Other chest [...] documented as of this encounter Care Teams Catcher Filter Tip Relationship Specialty Start Date End Date Maddie Kim MD [address] [place] [address] PCP - General Family Medicine 07/12/20 Willie Gage 01/17/22 documented as of this encounter
--- OUTSIDE RECORDS SUMMARY | 2024-12-10 03:19 | XMS_ITS | Encounter Summary ---
Author Organization [employer] Address [address] 7t [place] [address] Care Team Providers Care Senior Animal Trainer Name Role Phone Maddie Kim MD Primary Care Provider [phone] Reason for Visit * Reason Onset Date Comments Med Refill 04/04/2023 Encounter Details Date Type Department Care Team ([facility] Contact Info) Description 04/04/2023 Refill [facility] [address] [place] [address] [phone] Isac Gonzalez MD 230 [place], [place] [phone] Chronic bilateral low back pain without sciatica [...] is your housing situation today? I have salomeusndar benjamin 11/27/[address] you [...] as of this encounter Care Teams Senior Animal Trainer Relationship Specialty Start Date End Date Maddie Kim MD [address] [place] [address] PCP - General Family Medicine 07/12/20 Willie Gage 01/17/22 documented as of this encounter
--- OUTSIDE RECORDS SUMMARY | 2024-12-10 03:19 | XMS_ITS | Encounter Summary ---
Author Organization [employer] Address [address] [place] [address] 7t [place] [address] Care Team Providers Care Physical Biochemist Name Role Phone Maddie Kim MD Primary Care Provider [phone] Encounter Details Date Type Department Care Team ([facility] st Contact Info) Description 06/13/2024 Orders Only [facility] MEDICINE 230 [place], [place] [phone] Maddie Kim MD 230 [place], [place] [phone] Social History Tobacco Use Types Packs/Day Years [...] as of this encounter Care Teams Physical Biochemist Relationship Specialty Start Date End Date Maddie Kim MD [address] [place] [address] PCP - General Family Medicine 07/12/20 Willie Gage 01/17/22 documented as of this encounter
--- OUTSIDE RECORDS SUMMARY | 2024-12-10 03:19 | XMS_ITS | Encounter Summary ---
Author Organization [employer] Address [address] [place] [address] 7t [place] [address] Care Team Providers Care Patent Lawyer Name Role Phone Maddie Kim MD Primary Care Provider [phone] Encounter Details Date Type Department Care Team ([facility] st Contact Info) Description 07/07/2024 Orders Only [facility] MEDICINE 230 [place], [place] [phone] Maddie Kim MD 230 [place], [place] [phone] Benign hypertension (Primary Dx) Social History Tobacco [...] the past 12 months, has t he [employer], gas, oil or water company threatened to [...] Procedure Name Priority Date/Time Associated Diagnosis Comments BASIC METABOLIC PANEL Routine 07/10/2024 8:29 AM EDT Benign hypertension documented in this encounter Results * (ABNORMAL) Basic Metabolic Panel (07/10/2024 8:29 AM EDT) Sodium 136 135 - 145 mmol/L [facility] Potassium 4.3 3.3 - 5.1 mmol/L [facility] Chloride 105 96 - 108 mmol/L [facility] Carbon Dioxide 24 22 - 29 mmol/L [facility] Anion Gap 11(L) 12 - 20 [facility] Urea Nitrogen (BUN) 13 9 - 16 mg/dL [facility] Creatinine, Serum 0.68 0.5 - 1.4 mg/dL [facility] Estimated Glomerular Filt Rate >60 [facility] Comment:Chronic Kidney Disea se: Estimated GFR < 60 mL/min/1.02n3Djzsty Kidney Disease: Estimated GFR < 15 mL/min/1.73m2 Glucose 88 60 - 115 mg/dL [facility] Calcium 9.3 8.4 - 10.2 mg/dL [facility] Blood Venous blood specimen / Unknown 07/10/2024 8:29 AM EDT 07/10/2024 8:29 AM EDT us Maddie Kim MD LAB BLOOD ORDERABLES Final Res ult [facility] [address] [place] [address] [phone] documented in this encounter Visit Diagnoses Diagnosis Benign hypertension- Primary Essential hypertension, benign documented in this encounter Additional Health Concerns Assessment Noted Time PHQ-9 Depression Total Score: 9 07/05/19 25 6:48 AM EDT documented as of this encounter Care Teams Patent Lawyer Relationship Specialty Start Date End Date Maddie Kim MD 230 [place] [address] PCP - General Family Medicine 07/12/20 Willie Caring 01/17/22 documented as of this encounter
--- OUTSIDE RECORDS SUMMARY | 2024-12-10 03:19 | XMS_ITS | Continuity of Care Document ---
Author Name [employer] Address [address] [place] [address] Organization Unknown Address [address] [place] [address] Medications No known medications Problems No known problems
--- OUTSIDE RECORDS SUMMARY | 2024-12-10 03:19 | XMS_ITS | Encounter Summary ---
Author Organization [employer] Address [address] [place] [address] 7 [place] [address] Care Team Providers Care Butcherette Name Role Phone Maddie Kim MD Primary Care Provider [phone] Reason for Visit * Reason Onset Date Comments Med Refill 09/19/2024 Encounter Details Date Type Department Care Team ([facility] Contact Info) Description 09/19/2024 Telephone [facility] MEDICINE 230 [place], [place] [phone] Maddie Kim MD 230 [place], [place] [phone] Med Refill Social History Tobacco Use Types [...] the past 12 months, has t he [employer], gas, oil or water company threatened to [...] Telephone Encounter - Dinah Catalan LPN - 09/19/2024 1:38 PM EDT Medication was sent to [id number] on 08/27/24 with 2 refills patient can call pharmacy and transfer medication. * Telephone Encounter - Gil Metz - 09/19/2024 1:29 PM EDT TC from pt requesting medication refill. Medications needing refill : Tirzepatide-Weight Management (Zepbound) 10 MG/0.5ML solution auto-injector To be sent to: [facility] - [place], [place] - [address] documented in this encounter Plan of Treatment Not on file documented as of this encounter Visit Diagnoses Not on filedocumented in this encounter Additional Health Concerns Assessment Noted Time PHQ-9 Depression Total Score: 9 07/05/19 25 6:48 AM EDT documented as of this encounter Care Teams Butcherette Relationship Specialty Start Date End Date Maddie Kim MD [address] [place] [address] PCP - General Family Medicine 07/12/20 Willie Gage 01/17/22 documented as of this encounter
--- OUTSIDE RECORDS SUMMARY | 2024-12-10 03:19 | XMS_ITS | Encounter Summary ---
Author Organization [employer] Address [address] [place] [address] 7 [place] [address] Care Team Providers Care Transmission Superintendent Name Role Phone Maddie Kim MD Primary Care Provider [phone] Reason for Visit * Reason Onset Date Comments Verbal orders/ Medication question 05/08/2023 Encounter Details Date Type Department Care Team ([facility] Contact Info) Description 05/08/2023 Telephone [facility] MEDICINE 230 [place], [place] [phone] Maddie Kim MD 230 [place], [place] [phone] Verbal orders/ Medication question Social History Tobacco [...] 05/09/2023 9:54 AM EDT TC placed to [place] at the [facility] and gave VO for assisted for 3 times a week. Pt medications were also reconciled and pt reports using Viviscal OTC for hair growth and Calcium + VitD supplements. * Telephone Encounter - Toña Castillo - 05/08/2023 4:20 PM EDT Tc from [facility] requesting some verbal orders reconciliation for skill nursing 3 times a week. [place] is also requesting a call back to speak about patient's medications. documented in this encounter Plan of Treatment Not on file documented as of this encounter Visit Diagnoses Not on filedocumented in this encounter Additional Health Concerns Assessment Noted Time PHQ-9 Depression Total Score: 0 05/30/19 23 3:26 PM EDT documented as of this encounter Care Teams Transmission Superintendent Relationship Specialty Start Date End Date Maddie Kim MD [address] [place] [address] PCP - General Family Medicine 07/12/20 Willie Gage 01/17/22 documented as of this encounter
--- OUTSIDE RECORDS SUMMARY | 2024-12-10 03:19 | XMS_ITS | Encounter Summary ---
Author Organization [employer] Address [address] [place] [address] 7t [place] [address] Care Team Providers Care Electric Motor Tester Assembler Name Role Phone Maddie Kim MD Primary Care Provider [phone] Encounter Details Date Type Department Care Team ([facility] st Contact Info) Description 06/26/2022 Abstract [facility] MEDICINE 230 [place], [place] [phone] Maddie Kim MD [address] [place], [place] [phone] Social History Tobacco Use Types Packs/Day Years [...] documented as of this encounter Care Teams Electric Motor Tester Assembler Relationship Specialty Start Date End Date Maddie Kim MD [address] [place] [address] PCP - General Family Medicine 07/12/20 Willie Gage 01/17/22 documented as of this encounter
--- OUTSIDE RECORDS SUMMARY | 2024-12-10 03:19 | XMS_ITS | Encounter Summary ---
Author Organization [employer] Address [address] [place] [address] 7 [place] [address] Care Team Providers Care Patrol Guard Name Role Phone Maddie Kim MD Primary Care Provider [phone] Reason for Referral * Consultation (Routine) - Closed Specialty Diagnoses / Procedures Referred By Sindi mejia Referred To Contact Physical Therapy Diagnoses Cervical spine pain Maddie Kim MD [address] [place] [phone] Phone: tel: fax: AT Physical Therapy - [address] [address] Phone: tel: fax: Referral ID Status Reason Start Date Expiration Date V isits Requested Visits Authorized [id number] Closed Specialty Services Required 10/17/2024 10/17/2025 1 1 Encounter Details Date Type Department Care Team (Late st Contact Info) Description 10/17/2024 Orders Only [facility] MEDICINE [address] [place] [address] Maddie Kim MD [address] [place], [place] [phone] Cervical spine pain (Primary Dx) Social History Tobacco Use Types [...] Associated Diagnoses Orde r Schedule Referral to Physical Therapy Outpatient Referral Routine Cervical spine pain Expected: 10/17/2024 (Approximate), Expires: 10/17/2025 documented as of this encounter Visit Diagnoses Diagnosis Cervical spine pain- Primary documented in this encounter Additional Health Concerns Assessment Noted Time PHQ-9 Depression Total Score: 9 07/05/19 25 6:48 AM EDT documented as of this encounter Care Teams Patrol Guard Relationship Specialty Start Date End Date Maddie Kim MD [address] [place] [address] PCP - General Family Medicine 07/12/20 Willie Gage 01/17/22 documented as of this encounter
--- OUTSIDE RECORDS SUMMARY | 2024-12-10 03:19 | XMS_ITS | Encounter Summary ---
Author Organization [employer] Address [address] [place] [address] 7 [place] [address] Care Team Providers Care Art Gilder Name Role Phone Maddie Kim MD Primary Care Provider [phone] Reason for Visit * Reason Onset Date Comments Med Refill 03/19/2023 Encounter Details Date Type Department Care Team ([facility] Contact Info) Description 03/19/[address] [facility] MEDICINE 230 [place], [place] [phone] Maddie Kim MD [address] [place], [place] [phone] Med Refill Social History Tobacco Use Types [...] Pt agrees. MD Maddie Saravia RN; [facility] Team Nurses Caller: Unspecified (2 weeks ago) I wrote her a work excuse extending her time for remote work until 04/05/23 * Telephone Encounter - Maddie Crawford RN - 04/02/2023 3:02 PM EST Images from the original note were not included. Triage call regarding Pt portal message below. Pt continues to have symptoms of Covid. Pt was seen in [facility] 03/29/[address] Gonzalez and dx [...] better sooner will go into office [facility]. 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-19 by Doctor (or [employer]/PA) and Mild Symptoms * General Care Advice for COVID-19 Symptoms * Humidifier * Coughing Spells * Pain and Fever Medicines * Mild Stomach and Intestinal Symptoms During COVID-19 Illness Atiya [facility] Clinial Support (supporting Lorrie Alaniz [...] documented as of this encounter Care Teams Art Gilder Relationship Specialty Start Date End Date Maddie Kim MD [address] [place] [phone] PCP - General Family Medicine 07/12/20 Willie Gage 01/17/22 documented as of this encounter
--- OUTSIDE RECORDS SUMMARY | 2024-12-10 03:19 | XMS_ITS | Encounter Summary ---
Author Organization [employer] Address [address] [place] [address] 7 [place] [address] Care Team Providers Care Motor Power Connector Name Role Phone Maddie Kim MD Primary Care Provider [phone] Reason for Visit * Reason Onset Date Comments New Med Request 06/13/2024 Encounter Details Date Type Department Care Team ([facility] Contact Info) Description 06/13/2024 Telephone [facility] MEDICINE [address] [place], [place] [phone] Maddie Kim MD [address] [place], [place] [phone] New Med Request Social History Tobacco Use [...] EDT TC placed to Lauren (Visiting Nurse) [phone] regarding below message. Lauren informed RN that [...] Vitamin D-3 If any questions please contact [phone] documented in this encounter Plan of Treatment Not on file documented as of this encounter Visit Diagnoses Not on filedocumented in this encounter Additional Health Concerns Assessment Noted Time PHQ-9 Depression Total Score: 3 06/15/19 24 11:48 AM EDT documented as of this encounter Care Teams Motor Power Connector Relationship Specialty Start Date End Date Maddie Kim MD [address] [place] [address] PCP - General Family Medicine 07/12/20 Willie Gage 01/17/22 documented as of this encounter
--- OUTSIDE RECORDS SUMMARY | 2024-12-10 03:19 | XMS_ITS | Encounter Summary ---
Author Organization [employer] Address [address] [place] [address] 7t [place] [address] Care Team Providers Care Senior Applications Developer Name Role Phone Maddie Kim MD Primary Care Provider [phone] Encounter Details Date Type Department Care Team ([facility] st Contact Info) Description 04/14/2024 Orders Only [facility] MEDICINE [address] [place], [place] [phone] Maddie Kim MD [address] [place], [place] [phone] Social History Tobacco Use Types Packs/Day Years [...] IMMUNOGLOBULIN G 1545 600 - 1640 mg/dL [facility] IMMUNOGLOBULIN A 197 47 - 310 mg/dL [facility] Immunoglobulin M 46(A) 50 - 300 mg/dL [facility] Comment:THIS TEST WAS PERFOR MED AT:[address] [place] [phone] PARKINSON MD Immunofixation Result SEE NOTE [facility] Comment:Normal pattern. No m onoclonal proteins detected. 04/14/2024 12:4 7 PM EST 04/14/2024 12:47 PM EST us Generic External Data Provider LAB BLOOD ORDERAB LES Final Result Performing Organization Address [facility] de Phone Number [facility] [address] [place] [phone] * Cortisol Random (04/14/2024 12:47 PM EST) Pathologist [facility] Cortisol Random 5.7 ug/dL [facility] Comment:Reference Range*: Be fore 10 am 6.2-19.4 ug/dL After 5 pm 2.3-11.9 ug/dL*Please interpret above results accordingly.This test was performed using the [employer] chemiluminescentmethod. Values obtained from different assay methods cannotbe used interchangeably.Patients receiving fludrocortisone, prednisolone orprednisone may show artificially elevated cortisol valuesdue to cross-reactivity. 04/14/2024 12:4 7 PM EST 04/14/2024 12:47 PM EST us [employer] External Data Provider LAB BLOOD ORDERAB LES Final Result Performing Organization Address [facility] de Phone Number [facility] [address] [place] [phone] * Ferritin (04/14/2024 12:47 PM EST) Pathologist [facility] Ferritin 61 10 - 250 ng/mL [facility] 04/14/2024 12:4 7 PM EST 04/14/2024 12:47 PM EST Gil Brewer MD LAB BLOOD ORDERABLES Final Resul t Performing Organization Address [facility] Co de Phone Number [facility] [address] [place] [address] [phone] * Iron And Total Iron Binding Capacity (04/14/2024 12:47 PM EST) Pathologist [facility] Iron 77 30 - 160 mcg/dL [facility] Total Iron Binding Capacity 339 228 - 428 mcg/dL [facility] Percent Iron Saturation 23 15 - 50 % [facility] Unsaturated Iron Binding 262 ug/dL [facility] 04/14/2024 12:4 7 PM EST 04/14/2024 12:47 PM EST us Gil Brewer MD LAB BLOOD ORDERABLES Final Resul t [facility] [address] [place] [phone] [phone] * (ABNORMAL) Basic Metabolic Panel (04/14/2024 12:47 PM EST) Pathologist [facility] Sodium 139 135 - 145 mmol/L [facility] Potassium 4.3 3.3 - 5.1 mmol/L [facility] Chloride 104 96 - 108 mmol/L [facility] Carbon Dioxide 27 22 - 29 mmol/L [facility] Anion Gap 12 12 - 20 [facility] Urea Nitrogen (BUN) 7(L) 9 - 16 mg/dL [facility] Creatinine, Serum 0.69 0.5 - 1.4 mg/dL [facility] Estimated Glomerular Filt Rate >60 [facility] Comment:Chronic Kidney Disea se: Estimated GFR < 60 mL/min/[id number] Kidney Disease: Estimated GFR < 15 mL/min/1.73m2 Glucose 84 60 - 115 mg/dL [facility] Calcium 9.5 8.4 - 10.2 mg/dL [facility] 04/14/2024 12:4 7 PM EST 04/14/2024 12:47 PM EST us Gil Brewer MD LAB BLOOD ORDERABLES Final Resul t [facility] [address] [place] [phone] [phone] * (ABNORMAL) CBC auto differential (04/14/2024 12:47 PM EST) White Blood Count 6.5 4.8 - 10.8 X10*3/uL [facility] Red Blood Count 3.74(L) 4.20 - 5.50 X10*6/uL [facility] Hemoglobin 9.4(L) 12.0 - 16.0 g/dl [facility] Hematocrit 29.6(L) 37.0 - 47.0 % [facility] Mean Corpuscular Volume 79.1(L) 80.0 - 98.0 fL [facility] Mean Corpuscular Hemoglobin 25.1(L) 27.0 - 33.0 pg [facility] Mean Corpuscular HGB Conc 31.8 31.0 - 35.0 g/dl [facility] Red Cell Distribution Width 16.1(H) 11.0 - 16.0 % [facility] Platelet Count 530(H) 160 - 400 X10*3/uL [facility] Mean Platelet Volume 9.6 9.4 - 12.3 fL [facility] Neutrophils Percent Auto 56.2 45 - 73 % [facility] Imm Gran Pct Auto 0.6(H) 0.0 - 0.4 % [facility] Lymphocytes Percent Auto 32.5 20 - 40 % [facility] Monocytes Percent Auto 8.8 2 - 11 % [facility] Eosinophils Percent Auto 1.4 0 - 4 % [facility] Basophils Percent Auto 0.5 0 - 2 % [facility] NRBC Pct Auto 0.0 0.0 - 0.2 /100WBC [facility] Neutrophils Absolute Auto 3.7 2.0 - 8.3 x10*3/uL [facility] Imm Gran Abs Auto 0.04(H) 0.00 - 0.03 X10*3/uL [facility] Lymphocytes Absolute Auto 2.1 1.2 - 4.9 X10*3/uL [facility] Monocytes Absolute Auto 0.6 0.1 - 1.2 X10*3/uL [facility] Eosinophils Absolute Auto 0.1 0.0 - 0.4 X10*3/uL [facility] Basophils Absolute Auto 0.0 0.0 - 0.2 X10*3/uL [facility] NRBC Abs Auto 0.000 0.0 - 0.012 X10*3/uL [facility] 04/14/2024 12:4 7 PM EST 04/14/2024 12:47 PM EST Gil Brewer MD LAB BLOOD ORDERABLES Final Resul t Performing Organization Address [facility] Co de Phone Number [facility] [address] [place] [phone] * (ABNORMAL) Osmolality, Urine (04/14/2024 12:45 PM EST) OSMOLALITY URINE 212(L) 373 - 1,093 mosm/kg [facility] 04/14/2024 12:4 5 PM EST 04/14/2024 1:55 PM EST us Generic External Data Provider LAB URINE ORDERAB LES Final Result Performing Organization Address [facility] Co de Phone Number [facility] [address] [place] [phone] * Sodium Without creatinine, Random Urine (04/14/2024 12:45 PM EST) Sodium Urine Random 47.0 mmol/L [facility] 04/14/2024 12:4 5 PM EST 04/14/2024 1:55 PM EST us Generic External Data Provider LAB BLOOD ORDERAB LES Final Result Performing Organization Address [facility] Co de Phone Number [facility] [address] [place] [address] [place] [phone] documented in this encounter Visit Diagnoses Not on filedocumented in this encounter Additional Health Concerns Assessment Noted Time PHQ-9 Depression Total Score: 3 06/15/19 24 11:48 AM EDT documented as of this encounter Care Teams Senior Applications Developer Relationship Specialty Start Date End Date Maddie Kim MD [address] [place] [address] PCP - General Family Medicine 07/12/20 Willie Caring 01/17/22 documented as of this encounter
--- OUTSIDE RECORDS SUMMARY | 2024-12-10 03:19 | XMS_ITS | Encounter Summary ---
Author Organization [employer] Address [address] [facility] 7t [place] [address] Care Team Providers Care Fiberline Supervisor Name Role Phone Maddie Kim MD Primary Care Provider Reason for Visit * Reason Onset Date Comments Med Refill 02/14/2023 Encounter Details Date Type Department Care Team ([facility] Contact Info) Description 02/14/2023 Refill [facility] [address] [place] [address] [phone] Maddie Kim MD [address] [place] [address] [phone] Social History Tobacco Use Types Packs/Day Years [...] documented as of this encounter Care Teams Fiberline Supervisor Relationship Specialty Start Date End Date Maddie Kim MD [address] [place] [phone] PCP - General Family Medicine 07/12/20 Willie Gage 01/17/22 documented as of this encounter
--- OUTSIDE RECORDS SUMMARY | 2024-12-10 03:19 | XMS_ITS | Continuity of Care Document ---
Author Name [employer] Medical Address [address] [place] [address] Organization Unknown Address [address] [place] [address] Medications No known medications Problems No known problems
--- OUTSIDE RECORDS SUMMARY | 2024-12-10 03:19 | XMS_ITS | Encounter Summary ---
Author Organization [employer] Address [address] [place] [address] 7 [place] [address] Care Team Providers Care Automation Control Integrator Name Role Phone Maddie Kim MD Primary Care Provider [phone] Reason for Visit * Reason Onset Date Comments Nurse Triage 05/14/2023 Encounter Details Date Type Department Care Team ([facility] st Contact Info) Description 05/14/[address] [facility] MEDICINE [address] [place], [place] [phone] Maddie Kim MD 230 [place], [place] [phone] Nurse Triage Social History Tobacco Use Types [...] accepted this outcome Any questions to Destiny [phone] documented in this encounter Plan of Treatment Not on file documented as of this encounter Visit Diagnoses Not on filedocumented in this encounter Additional Health Concerns Assessment Noted Time PHQ-9 Depression Total Score: 0 05/30/19 23 3:26 PM EDT documented as of this encounter Care Teams Automation Control Integrator Relationship Specialty Start Date End Date Maddie Kim MD [address] [place] [phone] PCP - General Family Medicine 07/12/20 Willie Gage 01/17/22 documented as of this encounter
--- OUTSIDE RECORDS SUMMARY | 2024-12-10 03:19 | XMS_ITS | Encounter Summary ---
Author Organization [employer] Address [address] [place] [address] 7 [place] [address] Care Team Providers Care Decorating Supervisor Name Role Phone Maddie Kim MD Primary Care Provider Reason for Visit * Reason Onset Date Comments Durable Medical Equipment 03/16/2022 Encounter Details Date Type Department Care Team ([facility] st Contact Info) Description 03/16/2022 Telephone [facility] MEDICINE [address] [place] [phone] Maddie Kim MD [address] [place], [place] [phone] Durable Medical Equipment Social History Tobacco Use [...] it can fax to her landlord at [phone]. She would like the script to be to the [facility] [place], [address] [place] [address] If any concerns please contact pt at [phone] documented in this encounter Plan of Treatment Not on file documented as of this encounter Visit Diagnoses Not on filedocumented in this encounter Care Teams Decorating Supervisor Relationship Specialty Start Date End Date Maddie Kim MD [address] [place] [phone] PCP - General Family Medicine 07/12/20 Willie Gage 01/17/22 documented as of this encounter
--- OUTSIDE RECORDS SUMMARY | 2024-12-10 03:19 | XMS_ITS | Encounter Summary ---
Author Organization [employer] Address [address] [facility] 7t [place] [address] Care Team Providers Care Cuff Setter Name Role Phone Maddie Kim MD Primary Care Provider [phone] Reason for Visit * Reason Comments Med Refill Encounter Details Date Type Department Care Team ([facility] st Contact Info) Description 04/12/2023 Refill [facility] [address] [place] [address] [phone] Isac Gonzalez MD [address] [place] [address] [phone] Chronic bilateral low back pain without sciatica [...] documented as of this encounter Care Teams Cuff Setter Relationship Specialty Start Date End Date Maddie Kim MD [address] [place] [phone] PCP - General Family Medicine 07/12/20 Willie Gage 01/17/22 documented as of this encounter
--- OUTSIDE RECORDS SUMMARY | 2024-12-10 03:19 | XMS_ITS | Patient Health Record ---
Author [facility] Address [address] [place] [address] Care Team Providers Care Enrichment Teacher Name Role Phone Maya Wu Primary Care Provider Reshma Sky Unavailable [phone] Allergies Allergen (clinical drug ingredient) Drug/Non Drug [...] 09/26/2024 Encounters Encounter [facility] Date [facility] [address] 07/11/2024 Reshma Perica Pain in right toe(s) M79.674 ; Onychomycosis B35.1 and Ingrown nail L60.[address] [address] 09/26/2024 Reshma Perica Onychomycosis B35.[address] [address] 07/11/2024 Reshma Perica [address] [address] 07/11/2024 Reshma Perica [address] [address] 07/17/2024 Reshma Perica Assessments Encounter Date Diagnosis [...] Insured Coverage Start Date Coverage End Date [facility] [employer] Claims [address] [place] [id number] Atiya Dotson Self - patient is the insured Medical (General) History Medical History History ICD Code Anxiety Arthritis Back,Hip,and Knee pain Depression Gall bladder problems High blood pressure Reflux ( GERD) thyroid ulcer Chicken pox Joint implants/screws Surgical History Surgery Date(Month/Year) gastric bypass 2008 bowel obstruction 2018 Right knee replacement 03/13 knee replacement 05/27/24
--- OUTSIDE RECORDS SUMMARY | 2024-12-10 03:20 | XMS_ITS | Encounter Summary ---
Author Organization [employer] Address [address] [place] [address] 7 [place] [address] Care Team Providers Care Pump Assembler Name Role Phone Maddie Kim MD Primary Care Provider [phone] Reason for Visit * Reason Onset Date Comments Prior Authorization 05/19/2024 Encounter Details Date Type Department Care Team ([facility] Contact Info) Description 05/19/2024 Telephone [facility] MEDICINE [address] [place] [address] [phone] Maddie Kim MD [address] [place], [place] [phone] Prior Authorization Social History Tobacco Use Types [...] Tirzepatide-Weight Management (Zepbound) 2.5 MG/0.5ML solution auto-injector. [employer] advise pt 7-14 business days. Pt verbalized [...] re fax it over. Contact pt at [phone] documented in this encounter Plan of Treatment Not on file documented as of this encounter Visit Diagnoses Not on filedocumented in this encounter Additional Health Concerns Assessment Noted Time PHQ-9 Depression Total Score: 3 06/15/19 24 11:48 AM EDT documented as of this encounter Care Teams Pump Assembler Relationship Specialty Start Date End Date Maddie Kim MD [address] [place] [phone] PCP - General Family Medicine 07/12/20 Willie Gage 01/17/22 documented as of this encounter
[2024-12-10 03:55] LABS: Acetaminophen LAB < 3 mcg/mL (<30); Alkaline Phosphatase 100 U/L (39-117); Salicylate < 5.0 mg/dL (15-30)
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
[2024-12-10 06:08] VITALS: RESP 16
--- NOTE | 2024-12-10 07:57 | PC.NURSE ---
Assumed care, report received. Pt is awake, she has mild anxiety and asks for nicotine gum. She calls her sponsor and a friend. she spends time in her room and eats breakfast.
[2024-12-10 09:46] VITALS: BP 127/86; PULSE 98; RESP 16; TEMP 36.6; O2SAT 98
--- NOTE | 2024-12-10 14:10 | MHC.CARE ---
Atiya was seen by the CARE TEAM and referred to [facility], Referral generated an emailed to PHP, they will contact patient.
--- OUTSIDE RECORDS SUMMARY | 2024-12-30 20:00 | XMS_ITS | Clinical Summary ---
Author Organization Unknown Care Team Providers Care Teacher Hearing Impaired Name Role Phone MARLON AHUMADA, JEAN-PIERRE Unavailable Unavailable ENRIQUE WEINSTEINW, WINNIE Unavailable Unavailable JAVIER KASPER, GABBY Unavailable Unavaila april HENDERSON RN, GALLITO Unavailable Unavailable Payers Payer Name Policy Type Policy Number Effective Date Expira tion Date [facility] [place] [place] [id number] [place] [id number] MEDICARE - [facility] [id number] Problems Condition Name Condition Details Condition Category [...] 2020-02 00:00: 00 03-07 00:00 :00 No [id number] 10 mg 3 TIMES DAILY 10 mg 3 TIMES DAILY (route: oral) Med Classific ation: Locomotor System buprenorphi ne 4 mg-naloxone 1 mg sublingual film 2020-02 00:00: 00 04-05 00:00 :00 No [id number] Per instruc tions NEEDED Per instructio ns NEEDED (route: sublingual ) Med Classific ation: Chemical Dependenc y, Agents to Treat divalproex 250 mg tablet,kassandra yed release 2020-02 00:00: 00 04-05 23:59 :00 No [id number] 250 mg DAILY 250 mg DAILY (route: oral) Med Classific ation: Central Nervous System Agents divalproex ER 500 mg tablet,exte nded release 24 hr 2020-02 00:00: 00 04-05 00:00 :00 No [id number] 500 mg 2 TIMES DAILY 500 mg 2 TIMES DAILY (route: oral) Med Classific ation: Central Nervous System Agents ferrous sulfate 325 mg (65 mg iron) tablet 2020-02 00:00: 00 04-05 00:00 :00 No [id number] 1 tablet DAILY 1 tablet DAILY (route: oral) Med Classific ation: Electroly te Balance-N utritiona l Products Invega Sustenna 156 mg/mL intramuscul ar syringe 2020-02 00:00: 00 05-11 23:59 :00 No [id number] 156 mg MONTHLY 156 mg MONTHLY (route: intramuscu lar) Med Classific ation: Central Nervous System Agents levothyroxi ne 25 mcg tablet 2020-02 00:00: 00 03-05 23:59 :00 No [id number] 25 mcg DAILY 25 mcg DAILY (route: oral) Med Classific ation: Endocrine lisinopril 5 mg tablet 2020-02 00:00: 00 11-21 23:59 :00 No [id number] 5 mg DAILY 5 mg DAILY (route: oral) Med Classific ation: Cardiovas cular Therapy Agents nicotine (polacrilex ) 4 mg gum 2020-02 00:00: 00 09-12 23:59 :00 No [id number] 4 gum NEEDED 4 gum NEEDED (route: buccal) Med Classific ation: Chemical Dependenc y, Agents to Treat nicotine 21mg/24hr-1 4mg/24hr-7m g/24hr daily transderm patches,seq uentl 2020-02 00:00: 00 09-12 23:59 :00 No [id number] 21 patch NEEDED 21 patch NEEDED (route: transderma l) Med Classific ation: Chemical Dependenc y, Agents to Treat nystatin 500,000 unit tablet 2020-02 00:00: 00 04-05 00:00 :00 No [id number] In unit 4 TIMES DAILY [id number] In unit 4 TIMES DAILY (route: oral) Med Classific ation: Anti-Infe ctive Agents omeprazole 20 mg tablet,kassandra yed release 2020-02 00:00: 00 Yes [id number] 20 mg DAILY 20 mg DAILY (route: oral) Med Classific ation: Gastroint estinal Therapy Agents prazosin 5 mg capsule 2020-02 00:00: 00 02-14 23:59 :00 No [id number] 5 capsule BEDTIME 5 capsule BEDTIME (route: oral) Med Classific ation: Cardiovas cular Therapy Agents trazodone 50 mg tablet 2020-02 00:00: 00 01-17 23:59 :00 No [id number] 50 mg NEEDED 50 mg NEEDED (route: oral) Med Classific ation: Central Nervous System Agents albuterol sulfate HFA 90 mcg/actuati on aerosol inhaler 04-05 00:00: 00 08-13 23:59 :00 No [id number] 2 puff NEEDED 2 puff NEEDED (route: inhalation ) Med Classific ation: Respirato ry Therapy Agents Aspercreme with Aloe 10 % topical 04-05 00:00: 00 09-12 23:59 :00 No [id number] Per instruc tions NEEDED Per instructio ns NEEDED (route: topical) Med Classific ation: Dermatolo gical cyclobenzap rine 5 mg tablet 04-05 00:00: 00 01-17 23:59 :00 No [id number] 5 mg NEEDED 5 mg NEEDED (route: oral) Med Classific ation: Locomotor System Depakote 500 mg tablet,kassandra yed release 2-15 00:00: 00 05-06 23:59 :00 No [id number] 1000 mg 2 TIMES DAILY 1000 mg 2 TIMES DAILY (route: oral) Med Classific ation: Central Nervous System Agents diphenhydra mine 25 mg capsule 2-15 00:00: 00 06-01 23:59 :00 No [id number] 50 mg NEEDED 50 mg NEEDED (route: oral) Med Classific ation: Respirato ry Therapy Agents hydroxyzine HCl 50 mg tablet 15 00:00: 00 06-01 23:59 :00 No [id number] 50 mg 3 TIMES DAILY 50 mg 3 TIMES DAILY (route: oral) Med Classific ation: Central Nervous System Agents naltrexone 50 mg tablet 04-05 00:00: 00 06-01 23:59 :00 No [id number] 50 mg DAILY 50 mg DAILY (route: oral) Med Classific ation: Antidotes and other Reversal Agents Narcan 4 mg/actuatio n nasal spray 15 00:00: 00 06-01 23:59 :00 No [id number] Per instruc tions NEEDED Per instructio ns NEEDED (route: nasal) Med Classific ation: Antidotes and other Reversal Agents pyridoxine (vitamin B6) 25 mg tablet 04-05 00:00: 00 06-01 23:59 :00 No [id number] 25 mg DAILY 25 mg DAILY (route: oral) Med Classific ation: Electroly te Balance-N utritiona l Products Invega Sustenna 234 mg/1.5 mL intramuscul ar syringe 3-24 00:00: 00 Yes [id number] Per instruc tions MONTHLY Per instructio ns MONTHLY (route: intramuscu lar) Med Classific ation: Central Nervous System Agents Invega Sustenna 234 mg/1.5 mL intramuscul ar syringe 8-14 00:00: 00 11-30 23:59 :00 No [id number] 234 mg MONTHLY 234 mg MONTHLY (route: intramuscu lar) Med Classific ation: Central Nervous System Agents Celebrex 200 mg capsule 2021-02 0-26 00:00: 00 03-20 23:59 :00 No [id number] 200 mg 2 TIMES DAILY 200 mg 2 TIMES DAILY (route: oral) Alternate Route: NONE. Med Classific ation: Analgesic , Anti-infl ammatory or Antipyret ic Celebrex 200 mg capsule - 00:00: 00 01-10 23:59 :00 No [id number] 200 mg DAILY 200 mg DAILY (route: oral) Alternate Route: NONE. Med Classific ation: Analgesic , Anti-infl ammatory or Antipyret ic docusate sodium 100 mg capsule 03-20 00:00: 00 01-29 23:59 :00 No [id number] 1 capsule 2 TIMES DAILY 1 capsule 2 TIMES DAILY (route: oral) Alternate Route: NONE. Med Classific ation: Gastroint estinal Therapy Agents Eliquis 2.5 mg tablet 03-20 00:00: 00 09-12 23:59 :00 No [id number] 1 tablet 2 TIMES DAILY 1 tablet 2 TIMES DAILY (route: oral) Med Classific ation: Hematolog ical Agents oxycodone 5 mg tablet 30 00:00: 00 04-18 23:59 :00 No [id number] Per instruc tions DIRECTED Per instructio ns DIRECTED (route: oral) Alternate Route: NONE. Med Classific ation: Analgesic , Anti-infl ammatory or Antipyret ic tramadol 50 mg tablet 03-20 00:00: 00 04-18 23:59 :00 No [id number] Per instruc tions DIRECTED Per instructio ns DIRECTED (route: oral) Med Classific ation: Analgesic , Anti-infl ammatory or Antipyret ic gabapentin 300 mg capsule 3-29 00:00: 00 01-10 23:59 :00 No [id number] 1 capsule 3 TIMES DAILY 1 capsule 3 TIMES DAILY (route: oral) Med Classific ation: Central Nervous System Agents cyclobenzap rine 5 mg tablet 7-27 00:00: 00 01-10 23:59 :00 No [id number] 1 tablet 3 TIMES DAILY 1 tablet 3 TIMES DAILY (route: oral) Med Classific ation: Locomotor System baclofen 10 mg tablet 2022-02 1-24 00:00: 00 03-30 23:59 :00 No [id number] 1 tablet DIRECTED 1 tablet DIRECTED (route: oral) Med Classific ation: Locomotor System docusate sodium 100 mg capsule 2022-02 00:00: 00 Yes [id number] 1 capsule NEEDED 1 capsule NEEDED (route: oral) Med Classific ation: Gastroint estinal Therapy Agents acetaminoph en 300 mg-codeine 30 mg tablet 03-30 00:00: 00 05-15 23:59 :00 No [id number] 1 tablet 3 TIMES DAILY 1 tablet 3 TIMES DAILY (route: oral) Med Classific ation: Analgesic , Anti-infl ammatory or Antipyret ic Paxlovid 300 mg (150 mg x 2)-100 mg tablets in a dose pack 03-30 00:00: 00 04-03 23:59 :00 No [id number] 3 tablet 2 TIMES DAILY 3 tablet 2 TIMES DAILY (route: oral) Med Classific ation: Anti-Infe ctive Agents tizanidine 4 mg tablet 03-30 00:00: 00 01-03 23:59 :00 No [id number] 1 tablet 3 TIMES DAILY 1 tablet 3 TIMES DAILY (route: oral) Med Classific ation: Locomotor System Depakote 500 mg tablet,kassandra yed release 05-11 00:00: 00 03-31 23:59 :00 No [id number] 1000 mg 2 TIMES DAILY 1000 mg 2 TIMES DAILY (route: oral) Med Classific ation: Central Nervous System Agents multivitami n tablet 15 00:00: 00 04-21 23:59 :00 No [id number] 1 tablet DIRECTED 1 tablet DIRECTED (route: oral) Med Classific ation: Electroly te Balance-N utritiona l Products gabapentin 300 mg capsule - 00:00: 00 04-24 23:59 :00 No [id number] 2 capsule 3 TIMES DAILY 2 capsule 3 TIMES DAILY (route: oral) Med Classific ation: Central Nervous System Agents paliperidon e ER 1.5 mg tablet,exte nded release 24 hr 07-10 00:00: 00 11-22 23:59 :00 No [id number] 1 tablet DAILY 1 tablet DAILY (route: oral) Med Classific ation: Central Nervous System Agents aspirin 81 mg tablet,kassandra yed release 08-14 00:00: 00 08-28 23:59 :00 No [id number] 1 tablet 2 TIMES DAILY 1 tablet 2 TIMES DAILY (route: oral) Med Classific ation: Hematolog ical Agents tramadol 50 mg tablet 08-14 00:00: 00 08-17 23:59 :00 No [id number] 1 tablet DIRECTED 1 tablet DIRECTED (route: oral) Med Classific ation: Analgesic , Anti-infl ammatory or Antipyret ic cyanocobala min (vit B-12) 500 mcg tablet 09-08 00:00: 00 Yes [id number] 1 tablet DAILY 1 tablet DAILY (route: oral) Med Classific ation: Electroly te Balance-N utritiona l Products folic acid 1 mg tablet 09-08 00:00: 00 Yes [id number] 1 tablet DAILY 1 tablet DAILY (route: oral) Med Classific ation: Electroly te Balance-N utritiona l Products High Potency Multivitami n 400 mcg tablet 09-08 00:00: 00 02-17 23:59 :00 No [id number] 2 tablet DAILY 2 tablet DAILY (route: oral) Med Classific ation: Electroly te Balance-N utritiona l Products magnesium citrate 125 mg capsule 09-08 00:00: 00 05-12 23:59 :00 No [id number] 2 capsule DAILY 2 capsule DAILY (route: oral) Med Classific ation: Electroly te Balance-N utritiona l Products Vitamin B-1 50 mg tablet 09-08 00:00: 00 03-25 23:59 :00 No [id number] 1 tablet DAILY 1 tablet DAILY (route: oral) Med Classific ation: Electroly te Balance-N utritiona l Products minoxidil 2.5 mg tablet 708 00:00: 00 12-17 23:59 :00 No [id number] .25 tablet DAILY .25 tablet DAILY (route: oral) Med Classific ation: Cardiovas cular Therapy Agents lisinopril 10 mg tablet 2023-02 0-03 00:00: 00 11-27 23:59 :00 No [id number] 2 tablet DAILY 2 tablet DAILY (route: oral) Med Classific ation: Cardiovas cular Therapy Agents lisinopril 40 mg tablet 2023-02 0-11 00:00: 00 06-18 23:59 :00 No [id number] 40 mg EVERY AM 40 mg EVERY AM (route: oral) Med Classific ation: Cardiovas cular Therapy Agents minoxidil 2.5 mg tablet 2023-02 00:00: 00 Yes [id number] 0.5 tablet DAILY 0.5 tablet DAILY (route: oral) Med Classific ation: Cardiovas cular Therapy Agents Celebrex 200 mg capsule 2023-02 00:00: 00 Yes [id number] 1 capsule EVERY PM 1 capsule EVERY PM (route: oral) Med Classific ation: Analgesic , Anti-infl ammatory or Antipyret ic cyclobenzap rine 10 mg tablet 2023-02 00:00: 00 03-28 23:59 :00 No [id number] 1 tablet 3 TIMES DAILY 1 tablet 3 TIMES DAILY (route: oral) Med Classific ation: Locomotor System hydrochloro thiazide 25 mg tablet 2023-02 00:00: 00 03-28 23:59 :00 No [id number] 1 tablet EVERY AM 1 tablet EVERY AM (route: oral) Med Classific ation: Cardiovas cular Therapy Agents metformin ER 1,000 mg 24 hr tablet,exte nded release (gastric reten.) 2023-02 00:00: 00 03-18 23:59 :00 No [id number] 2 tablet EVERY PM 2 tablet EVERY PM (route: oral) Med Classific ation: Endocrine naltrexone 50 mg tablet 2023-02 00:00: 00 02-14 23:59 :00 No [id number] 1 tablet EVERY AM 1 tablet EVERY AM (route: oral) Med Classific ation: Chemical Dependenc y, Agents to Treat prazosin 5 mg capsule 2023-02 00:00: 00 Yes [id number] 1 capsule BEDTIME 1 capsule BEDTIME (route: oral) Med Classific ation: Cardiovas cular Therapy Agents Laxative (bisacodyl) 5 mg tablet 2023-02 00:00: 00 Yes [id number] 2 tablet BEDTIME 2 tablet BEDTIME (route: oral) Med Classific ation: Gastroint estinal Therapy Agents nitrofurant oin monohydrate /macrocryst als 100 mg capsule 02-22 00:00: 00 02-28 23:59 :00 No [id number] 1 capsule EVERY 12 HOURS 1 capsule EVERY 12 HOURS (route: oral) Med Classific ation: Genitouri nary Therapy metformin ER 500 mg tablet,exte nded release 24 hr 03-18 00:00: 00 04-21 23:59 :00 No [id number] 2 tablet EVERY PM 2 tablet EVERY PM (route: oral) Med Classific ation: Endocrine thiamine HCl (vitamin B1) 100 mg tablet 03-24 00:00: 00 05-13 23:59 :00 No [id number] 1 tablet EVERY AM 1 tablet EVERY AM (route: oral) Med Classific ation: Electroly te Balance-N utritiona l Products Seroquel 50 mg tablet 03-24 00:00: 00 04-21 23:59 :00 No [id number] 1 tablet BEDTIME 1 tablet BEDTIME (route: oral) Med Classific ation: Central Nervous System Agents cyclobenzap rine 10 mg tablet 2023-02 00:00: 00 05-30 23:59 :00 No [id number] 1 tablet 3 TIMES DAILY 1 tablet 3 TIMES DAILY (route: oral) Med Classific ation: Locomotor System Hydrocil Instant oral packet 03-28 00:00: 00 08-13 23:59 :00 No [id number] 1 packet DAILY 1 packet DAILY (route: oral) Med Classific ation: Gastroint estinal Therapy Agents Senna Lax 8.6 mg tablet 03-28 00:00: 00 Yes [id number] 2 tablet BEDTIME 2 tablet BEDTIME (route: oral) Med Classific ation: Gastroint estinal Therapy Agents Vivitrol 380 mg intramuscul ar suspension, extended release 03-28 00:00: 00 08-13 23:59 :00 No [id number] Per instruc tions MONTHLY Per instructio ns MONTHLY (route: intramuscu lar) Med Classific ation: Chemical Dependenc y, Agents to Treat Depakote 250 mg tablet,kassandra yed release 04-01 00:00: 00 04-21 23:59 :00 No [id number] 1 tablet 2 TIMES DAILY 1 tablet 2 TIMES DAILY (route: oral) Med Classific ation: Central Nervous System Agents Depakote 500 mg tablet,kassandra yed release 04-01 00:00: 00 04-21 23:59 :00 No [id number] 1 tablet 2 TIMES DAILY 1 tablet 2 TIMES DAILY (route: oral) Med Classific ation: Central Nervous System Agents Vitamin D3 50 mcg (2,000 unit) tablet 04-01 00:00: 00 06-18 23:59 :00 No [id number] 2 tablet EVERY AM 2 tablet EVERY AM (route: oral) Med Classific ation: Electroly te Balance-N utritiona l Products nitrofurant oin macrocrysta l 100 mg capsule 04-01 00:00: 00 04-06 23:59 :00 No [id number] 1 capsule 2 TIMES DAILY 1 capsule 2 TIMES DAILY (route: oral) Med Classific ation: Genitouri nary Therapy clonazepam 0.5 mg tablet 04-04 00:00: 00 04-09 23:59 :00 No [id number] 1 tablet DAILY 1 tablet DAILY (route: oral) Med Classific ation: Central Nervous System Agents propranolol 10 mg tablet 04-04 00:00: 00 04-24 23:59 :00 No [id number] 1-2 tablet 3 TIMES DAILY 1-2 tablet 3 TIMES DAILY (route: oral) Med Classific ation: Cardiovas cular Therapy Agents ferrous gluconate 324 mg (37.5 mg iron) tablet 2-20 00:00: 00 04-21 23:59 :00 No [id number] 1 tablet DIRECTED 1 tablet DIRECTED (route: oral) Med Classific ation: Electroly te Balance-N utritiona l Products Depakote 250 mg tablet,kassandra yed release 3- 00:00: 00 04-24 23:59 :00 No [id number] 1 tablet BEDTIME 1 tablet BEDTIME (route: oral) Med Classific ation: Central Nervous System Agents Depakote 500 mg tablet,kassandra yed release - 00:00: 00 04-24 23:59 :00 No [id number] 1 tablet EVERY AM 1 tablet EVERY AM (route: oral) Med Classific ation: Central Nervous System Agents Topamax 50 mg tablet - 00:00: 00 Yes [id number] 1 tablet BEDTIME 1 tablet BEDTIME (route: oral) Med Classific ation: Central Nervous System Agents Vraylar 3 mg capsule 04-21 00:00: 00 07-02 23:59 :00 No [id number] 1 capsule BEDTIME 1 capsule BEDTIME (route: oral) Med Classific ation: Central Nervous System Agents ferrous gluconate 324 mg (37.5 mg iron) tablet - 00:00: 00 Yes [id number] 1 tablet EVERY AM 1 tablet EVERY AM (route: oral) Med Classific ation: Electroly te Balance-N utritiona l Products gabapentin 300 mg capsule 3-07 00:00: 00 05-06 23:59 :00 No [id number] 1 capsule BEDTIME 1 capsule BEDTIME (route: oral) Med Classific ation: Central Nervous System Agents propranolol 10 mg tablet 3-06 00:00: 00 Yes [id number] Per instruc tions 3 TIMES DAILY Per instructio ns 3 TIMES DAILY (route: oral) Med Classific ation: Cardiovas cular Therapy Agents gabapentin 300 mg capsule 3-18 00:00: 00 Yes [id number] 1 capsule 3 TIMES DAILY 1 capsule 3 TIMES DAILY (route: oral) Med Classific ation: Central Nervous System Agents multivitami n tablet 3-24 00:00: 00 Yes [id number] 1 tablet EVERY AM 1 tablet EVERY AM (route: oral) Med Classific ation: Electroly te Balance-N utritiona l Products thiamine HCl (vitamin B1) 50 mg tablet 05-13 00:00: 00 08-13 23:59 :00 No [id number] 1 tablet EVERY AM 1 tablet EVERY AM (route: oral) Med Classific ation: Electroly te Balance-N utritiona l Products baclofen 10 mg tablet 06-04 00:00: 00 06-05 23:59 :00 No [id number] 1 tablet 3 TIMES DAILY 1 tablet 3 TIMES DAILY (route: oral) Med Classific ation: Locomotor System cyclobenzap rine 10 mg tablet 06-05 00:00: 00 Yes [id number] 1 tablet 3 TIMES DAILY 1 tablet 3 TIMES DAILY (route: oral) Med Classific ation: Locomotor System Eliquis 2.5 mg tablet 05-29 00:00: 00 06-28 23:59 :00 No [id number] 1 tablet 2 TIMES DAILY 1 tablet 2 TIMES DAILY (route: oral) Med Classific ation: Hematolog ical Agents oxycodone 10 mg tablet 05-30 00:00: 00 06-04 23:59 :00 No [id number] 0.5-1 tablet EVERY 4 HOURS 0.5-1 tablet EVERY 4 HOURS (route: oral) Med Classific ation: Analgesic , Anti-infl ammatory or Antipyret ic tramadol 50 mg tablet 05-29 00:00: 00 06-30 23:59 :00 No [id number] 1-2 tablet EVERY 6 HOURS 1-2 tablet EVERY 6 HOURS (route: oral) Med Classific ation: Analgesic , Anti-infl ammatory or Antipyret ic Zepbound 2.5 mg/0.5 mL subcutaneou s pen injector 06-05 00:00: 00 07-01 23:59 :00 No [id number] 2.5 mg WEEKLY 2.5 mg WEEKLY (route: subcutaneo us) Med Classific ation: Weight Loss/Gain Agents baclofen 10 mg tablet 06-05 00:00: 00 06-19 23:59 :00 No [id number] 1 tablet 3 TIMES DAILY 1 tablet 3 TIMES DAILY (route: oral) Med Classific ation: Locomotor System oxycodone 5 mg tablet 06-11 00:00: 00 06-18 23:59 :00 No [id number] 1-2 tablet EVERY 6 HOURS 1-2 tablet EVERY 6 HOURS (route: oral) Med Classific ation: Analgesic , Anti-infl ammatory or Antipyret ic baclofen 10 mg tablet 06-18 00:00: 00 07-02 23:59 :00 No [id number] 1 tablet 3 TIMES DAILY 1 tablet 3 TIMES DAILY (route: oral) Med Classific ation: Locomotor System oxycodone 5 mg tablet 06-18 00:00: 00 06-25 23:59 :00 No [id number] 1 tablet EVERY 4 HOURS 1 tablet EVERY 4 HOURS (route: oral) Med Classific ation: Analgesic , Anti-infl ammatory or Antipyret ic lisinopril 30 mg tablet 06-18 00:00: 00 08-13 23:59 :00 No [id number] 1 tablet EVERY AM 1 tablet EVERY AM (route: oral) Med Classific ation: Cardiovas cular Therapy Agents Vitamin D3 50 mcg (2,000 unit) capsule 06-18 00:00: 00 Yes [id number] 1 capsule EVERY AM 1 capsule EVERY AM (route: oral) Med Classific ation: Electroly te Balance-N utritiona l Products Zepbound 5 mg/0.5 mL subcutaneou s pen injector 07-02 00:00: 00 Yes [id number] 5 mg WEEKLY 5 mg WEEKLY (route: subcutaneo us) Med Classific ation: Weight Loss/Gain Agents Vraylar 1.5 mg capsule 07-02 00:00: 00 07-08 23:59 :00 No [id number] 1 capsule BEDTIME 1 capsule BEDTIME (route: oral) Med Classific ation: Central Nervous System Agents baclofen 10 mg tablet 07-02 00:00: 00 07-16 23:59 :00 No [id number] 1 tablet 3 TIMES DAILY 1 tablet 3 TIMES DAILY (route: oral) Med Classific ation: Locomotor System oxycodone 5 mg tablet 07-02 00:00: 00 07-09 23:59 :00 No [id number] 1 tablet EVERY 8 HOURS 1 tablet EVERY 8 HOURS (route: oral) Med Classific ation: Analgesic , Anti-infl ammatory or Antipyret ic gabapentin 300 mg capsule 07-08 00:00: 00 Yes [id number] 1 capsule EVERY AM 1 capsule EVERY AM (route: oral) Med Classific ation: Central Nervous System Agents gabapentin 300 mg capsule 07-08 00:00: 00 08-13 23:59 :00 No [id number] 2 capsule BEDTIME 2 capsule BEDTIME (route: oral) Med Classific ation: Central Nervous System Agents Vraylar 3 mg capsule 07-08 00:00: 00 08-13 23:59 :00 No [id number] 1 capsule BEDTIME 1 capsule BEDTIME (route: oral) Med Classific ation: Central Nervous System Agents bupropion HCl 100 mg tablet 08-13 00:00: 00 Yes [id number] 1 tablet DAILY 1 tablet DAILY (route: oral) Med Classific ation: Central Nervous System Agents gabapentin 400 mg capsule 08-13 00:00: 00 Yes [id number] 3 capsule DAILY 3 capsule DAILY (route: oral) Med Classific ation: Central Nervous System Agents lisinopril 10 mg tablet 08-13 00:00: 00 Yes [id number] 2 tablet DAILY 2 tablet DAILY (route: oral) Med Classific ation: Cardiovas cular Therapy Agents OMEPRAZOLE ORAL -03 00:00: 00 03-07 00:00 :00 No 20 [...] ation: GASTROINT ESTINAL THERAPY AGENTS OMEPRAZOLE ORAL 7-22 00:00: 00 09-23 00:00 :00 No 40 mg 40 mg (route: ) Med Classific ation: GASTROINT ESTINAL THERAPY AGENTS FLUOXETINE ORAL 0 4-14 00:00: 00 07-02 00:00 :00 No [...] CENTRAL NERVOUS SYSTEM AGENTS CHLORPROMAZ INE ORAL 6-14 00:00: 00 08-10 00:00 :00 No FOR ANXIETY 25 mgONE TABLET EVERY 6 HOURS NEEDED 25 mgONE TABLET EVERY 6 HOURS NEEDED (route: ) Alternate Route: (25MG) BY MOUTH . Med Classific ation: CENTRAL NERVOUS SYSTEM AGENTS CHLORPROMAZ INE ORAL 6-04 00:00: 08-22 00:00 :00 No 100 mgONE TABLET ONCE DAILY AT BEDTIME 100 mgONE TABLET ONCE DAILY AT BEDTIME (route: ) Alternate Route: (100MG) BY MOUTH . Med Classific ation: CENTRAL NERVOUS SYSTEM AGENTS LEVOTHYROXI NE ORAL 8-10 00:00: 00 10-12 00:00 :00 No 25 mcg 25 mcg (route: ) Med Classific ation: ENDOCRINE LEVOTHYROXI NE ORAL 5-10 00:00: 00 08-27 00:00 :00 No 50 mcg 50 mcg (route: ) Med Classific ation: ENDOCRINE OXYCODONE ORAL 2018-02 0-08 00:00: 00 11-30 00:00 :00 No 5 mg 5 mg (route: ) Med Classific ation: ANALGESIC , ANTI-INFL AMMATORY OR ANTIPYRET IC DOCUSATE SODIUM ORAL 8- 00:00: 00 10-19 00:00 :00 No 100 mg1 CAPSULE TWICE A DAY 100 mg1 CAPSULE TWICE A DAY (route: ) Alternate Route: BY MOUTH . Med Classific ation: GASTROINT ESTINAL THERAPY AGENTS HYDROCODONE -ACETAMINOP HEN ORAL 8-19 00:00: 00 10-12 00:00 :00 No 5-325 mg 5-325 mg (route: ) Med Classific ation: ANALGESIC , ANTI-INFL AMMATORY OR ANTIPYRET IC DAILY VALUE ORAL 09-18 00:00: 00 10-18 00:00 :00 No 1 TABLET EVERY DAY 1 TABLET EVERY DAY (route: ) Alternate Route: BY MOUTH . Med Classific ation: ELECTROLY TE BALANCE-N UTRITIONA L PRODUCTS ANTI-DIARRH EAL (LOPERAMIDE ) ORAL 5-17 00:00: [...] GASTROINT ESTINAL THERAPY AGENTS PANTOPRAZOL E ORAL 2018-0 8-10 00:00: 00 10-12 00:00 :00 No 40 mg 40 mg (route: ) Med Classific ation: GASTROINT ESTINAL THERAPY AGENTS TOPIRAMATE ORAL 2018-0 7-22 00:00: 00 09-23 00:00 :00 No 100 mg 100 mg (route: ) Med Classific ation: CENTRAL NERVOUS SYSTEM AGENTS TOPIRAMATE ORAL 2018-0 8-10 00:00: 00 10-12 00:00 :00 No 100 mg 100 mg (route: ) Med Classific ation: CENTRAL NERVOUS SYSTEM AGENTS TOPIRAMATE ORAL 2018-0 6-04 00:00: 00 08-22 00:00 :00 No 200 mg1/2 TABLET TWICE A DAY 200 mg1/2 TABLET TWICE A DAY (route: ) Alternate Route: (100MG) BY MOUTH . Med Classific ation: CENTRAL NERVOUS SYSTEM AGENTS TOPIRAMATE ORAL 0 1-03 00:00: 00 03-07 00:00 :00 No 25 mg 25 mg (route: ) Med Classific ation: CENTRAL NERVOUS SYSTEM AGENTS TOPIRAMATE ORAL 2018-0 1-16 00:00: 00 03-20 00:00 :00 No 25 mg1 T BID 25 mg1 T BID (route: ) Alternate Route: PO . Med Classific ation: CENTRAL NERVOUS SYSTEM AGENTS TOPIRAMATE ORAL 2018-0 2-12 00:00: 00 04-17 00:00 :00 No 25 mg1 TABLET TWICE A DAY 25 mg1 TABLET TWICE A DAY (route: ) Alternate Route: BY MOUTH . Med Classific ation: CENTRAL NERVOUS SYSTEM AGENTS CLINDAMYCIN HCL ORAL 2018-0 4-11 00:00: 00 06-06 00:00 :00 No 300 mg 3 (THREE) TIMES DAILY 300 mg 3 (THREE) TIMES DAILY (route: ) Alternate Route: 2 CAPS BY MOUTH . Med Classific ation: ANTI-INFE CTIVE AGENTS CLONIDINE HCL ORAL 0 1-03 00:00: 00 03-07 00:00 :00 No 0.1 mg 0.1 mg (route: ) Med Classific ation: CARDIOVAS CULAR THERAPY AGENTS CLONIDINE HCL ORAL 1-16 00:00: 00 03-20 00:00 :00 No 0.1 mg1 T TID 0.1 mg1 T TID (route: ) Alternate Route: PO . Med Classific ation: CARDIOVAS CULAR THERAPY AGENTS CLONIDINE HCL ORAL 5-15 00:00: 00 07-18 00:00 :00 No 0.1 mg1 TABLET THREE TIMES A DAY 0.1 mg1 TABLET THREE TIMES A DAY (route: ) Alternate Route: BY MOUTH . Med Classific ation: CARDIOVAS CULAR THERAPY AGENTS TRAZODONE ORAL 5-10 00:00: 00 07-13 [...] Med Classific ation: CENTRAL NERVOUS SYSTEM AGENTS FERROUS SULFATE ORAL 9-20 00:00: 00 [...] L PRODUCTS FERROUS SULFATE ORAL 6-04 00:00: 00 08-22 00:00 :00 No 325 [...] SYSTEM AGENTS LITHIUM CARBONATE ORAL 930 00:00: 12-18 00:00 :00 No 450 mgONE TABLET [...] ation: CENTRAL NERVOUS SYSTEM AGENTS DOK ORAL 920 00:00: 12-08 00:00 :00 No 100 mg1 [...] CENTRAL NERVOUS SYSTEM AGENTS DIVALPROEX ORAL 0 8-10 00:00: 00 10-12 00:00 :00 No 250 mg 250 mg (route: ) Med Classific ation: CENTRAL NERVOUS SYSTEM AGENTS DIVALPROEX ORAL 6-04 00:00: 08-22 00:00 :00 No 250 mgONE TABLET ONCE DAILY AT BEDTIME 250 mgONE TABLET ONCE DAILY AT BEDTIME (route: ) Alternate Route: (250MG) BY MOUTH . Med Classific ation: CENTRAL NERVOUS SYSTEM AGENTS PREDNISONE ORAL 6-14 00:00: 08-08 00:00 :00 No 20 mgTHREE [...] ation: CENTRAL NERVOUS SYSTEM AGENTS LORAZEPAM ORAL 8-12 00:00: 00 10-14 00:00 :00 No 0.5 mg 0.5 mg (route: ) Med Classific ation: CENTRAL NERVOUS SYSTEM AGENTS CYCLOBENZAP RINE ORAL 0 5-17 00:00: 00 07-11 00:00 :00 No 5 mg EVERY MORNING NEEDED AT BEDTIME 5 mg EVERY MORNING NEEDED AT BEDTIME (route: ) Med Classific ation: LOCOMOTOR SYSTEM CYCLOBENZAP RINE ORAL 0 5-10 00:00: 00 07-08 00:00 :00 No 10 mg 10 mg (route: ) Med Classific ation: LOCOMOTOR SYSTEM PRAZOSIN ORAL 0 7-31 00:00: 00 10-18 00:00 :00 No 1 mgONE CAPSULE AT BEDTIME 1 mgONE CAPSULE AT BEDTIME (route: ) Alternate Route: BY MOUTH . Med Classific ation: CARDIOVAS CULAR THERAPY AGENTS CARISOPRODO L ORAL 0 6-08 00:00: 00 08-01 00:00 :00 No 350 mg 350 mg (route: ) Med Classific ation: LOCOMOTOR SYSTEM BENZTROPINE ORAL 2017-02 2-05 00:00: 00 02-22 [...] ation: CENTRAL NERVOUS SYSTEM AGENTS BENZTROPINE ORAL 7-22 00:00: 00 09-23 00:00 :00 No 0.5 mg 0.5 mg (route: ) Med Classific ation: CENTRAL NERVOUS SYSTEM AGENTS BACLOFEN ORAL 6-14 00:00: 00 08-16 00:00 :00 No 10 mgONE TABLET TWO TO THREE TIMES DAILY NEEDED 10 mgONE TABLET TWO TO THREE TIMES DAILY NEEDED (route: ) Alternate Route: (10MG) BY MOUTH . Med Classific ation: LOCOMOTOR SYSTEM BACLOFEN ORAL 0 8-10 00:00: 00 09-30 00:00 :00 No 10 mg 10 mg (route: ) Med Classific ation: LOCOMOTOR SYSTEM HYDROXYZINE HCL ORAL 7-22 00:00: 00 09-23 00:00 :00 No 50 mg 50 mg (route: ) Med Classific ation: CENTRAL NERVOUS SYSTEM AGENTS HYDROXYZINE PAMOATE ORAL 1-03 00:00: 00 03-07 00:00 :00 No 50 mg 50 mg (route: ) Med Classific ation: CENTRAL NERVOUS SYSTEM AGENTS Vital Signs Vital Name Observation Time Observation Value Commen ts Temperature 2024-12-03 09:44:00.000 97.9 [degF] Temperature 2024-11-25 08:06:00.000 97.1 [degF] Temperature 2024-11-18 07:44:00.000 97.3 [degF] Temperature 2024-11-11 20:50:00.000 97.7 [degF] Temperature 2024-11-04 08:08:00.000 97.1 [degF] Pulse 2024-12-03 09:44:00.000 80 /min Pulse 2024-11-25 08:06:00.000 79 /min Pulse 2024-11-18 07:44:00.000 79 /min Pulse 2024-11-11 20:50:00.000 67 /min Pulse 2024-11-04 08:08:00.000 74 /min O2 Saturation (%) 2024-11-25 08:06:00.000 98 % O2 Saturation (%) 2024-11-18 07:44:00.000 98 % O2 Saturation (%) 2024-11-11 20:50:00.000 99 % Respirations 2024-12-03 09:44:00.000 18 /min Respirations 2024-11-25 08:06:00.000 16 /min Respirations 2024-11-18 07:44:00.000 16 /min Respirations 2024-11-11 20:50:00.000 16 /min Respirations 2024-11-04 08:08:00.000 16 /min Systolic Blood Pressure 2024-12-03 09:44:00.000 105 mm [Hg] Systolic Blood Pressure 2024-11-25 08:06:00.000 120 mm [Hg] Systolic Blood Pressure 2024-11-18 07:45:00.000 121 mm [Hg] Systolic Blood Pressure 2024-11-11 20:50:00.000 139 mm [Hg] Systolic Blood Pressure 2024-11-04 08:08:00.000 123 mm [Hg] Diastolic Blood Pressure 2024-12-03 09:44:00.000 [...] AWARENESS FOR SAFETY AND WILL NOTIFY CLINICAL STEWARD/STEWARDESS NIGHT AND PHYSICIAN/PROVIDER WITH ANY CHANGE IN CONDITION. [code = SKILLED NURSE WILL MAINTAIN SITUATIONAL AWARENESS FOR SAFETY AND WILL NOTIFY CLINICAL STEWARD/STEWARDESS NIGHT AND PHYSICIAN/PROVIDER WITH ANY CHANGE IN CONDITION.] [...] CARE WILL BE ESTABLISHED THAT MEETS PATIENT'S [facility] NEEDS AND INCLUDES PATIENT GOAL FOR HOME [...] End Date/Time Encounter Type Admission Type Attending [facility] Department Encounter ID Discharge Date Discharge Status Discharge Condition Discharge Reason Percent Goals Met 2024-11-02 00:00:00 2024-12-31 00:00:00 Outpatient RECERTIFIC G[facility] [id number] 22.86
== END 2024-12-10 09:47 | disposition home or self-care (01) ==
PROVIDERS: Emergency Provider Emergency Medicine; PCP General Practice
DX: F30.9 Manic episode, unspecified (principal); F12.90 Cannabis use, unspecified, uncomplicated; Z51.81 Encounter for therapeutic drug level monitoring; Z79.899 Other long term (current) drug therapy; F17.210 Nicotine dependence, cigarettes, uncomplicated
CPT/HCPCS: 36415; 80053; 80143; 80179; 80307; 81001; 85025; 99285; S9485

== ENCOUNTER 2024-12-17 08:03 | Outpatient (REF) | payer OTHER, SELFPAY ==
--- OUTSIDE RECORDS SUMMARY | 2024-12-17 08:07 | XMS_ITS | Encounter Summary ---
Author Organization [employer] Address [address] [place] [address] [address] [place] [address] Care Team Providers Care Superintendent Board Mill Name Role Phone Maddie Kim MD Primary Care Provider [phone] Encounter Details Date Type Department Care Team ([facility] st Contact Info) Description 07/29/2023 Orders Only [facility] MEDICINE [address] [place], [place] [phone] Maddie Kim MD [address] [place], [place] [phone] Social History Tobacco Use Types Packs/Day Years [...] documented as of this encounter Care Teams Superintendent Board Mill Relationship Specialty Start Date End Date Maddie Kim MD [address] [place] [id number] PCP - General Family Medicine 07/12/20 Willie Gage 01/17/22 documented as of this encounter
--- OUTSIDE RECORDS SUMMARY | 2024-12-17 08:07 | XMS_ITS | Encounter Summary ---
Author Organization [employer] Address [address] [place] [address] 7t [place] [address] Care Team Providers Care Retail Cosmetics Sales Beauty Advisor Name Role Phone Maddie Kim MD Primary Care Provider [phone] Encounter Details Date Type Department Care Team ([facility] st Contact Info) Description 01/27/[address] [facility] MEDICINE [address] [place], [place] [phone] Maddie Kim MD [address] [place], [place] [phone] Social History Tobacco Use Types Packs/Day Years [...] on filedocumented in this encounter Care Teams Retail Cosmetics Sales Beauty Advisor Relationship Specialty Start Date End Date Maddie Kim MD [address] [place] [id number] PCP - General Family Medicine 07/12/20 Willie Gage 01/17/22 documented as of this encounter
--- OUTSIDE RECORDS SUMMARY | 2024-12-17 08:08 | XMS_ITS | Encounter Summary ---
Author Organization [employer] Address [address] [place] [address] 7 [place] [address] Care Team Providers Care Gang Knife Fish Chopper Name Role Phone Maddie Kim MD Primary Care Provider [phone] Encounter Details Date Type Department Care Team ([facility] st Contact Info) Description 07/05/2022 Orders Only [facility] MEDICINE [address] [place], [place] [phone] Maddie Kim MD [address] [place], [place] [phone] Social History Tobacco Use Types Packs/Day Years [...] documented as of this encounter Care Teams Gang Knife Fish Chopper Relationship Specialty Start Date End Date Maddie Kim MD [address] [place] [id number] PCP - General Family Medicine 07/12/20 Willie Gage 01/17/22 documented as of this encounter
--- OUTSIDE RECORDS SUMMARY | 2024-12-17 08:08 | XMS_ITS | Encounter Summary ---
Author Organization [employer] Address [address] [place] [address] [address] [place] [address] Care Team Providers Care Credit Collections Analyst Name Role Phone Maddie Kim MD Primary Care Provider [phone] Encounter Details Date Type Department Care Team ([facility] st Contact Info) Description 05/15/2023 Orders Only [facility] MEDICINE [address] [place], [place] [phone] Maddie Kim MD [address] [place], [place] [phone] Social History Tobacco Use Types Packs/Day Years [...] as of this encounter Care Teams Credit Collections Analyst Relationship Specialty Start Date End Date Maddie Kim MD [address] [place] [id number] PCP - General Family Medicine 07/12/20 Willie Gage 01/17/22 documented as of this encounter
--- OUTSIDE RECORDS SUMMARY | 2024-12-17 08:08 | XMS_ITS | Encounter Summary ---
Author Organization [employer] Address [address] [place] [address] 7 [place] [address] Care Team Providers Care Hydraulic Assembler Name Role Phone Maddie Kim MD Primary Care Provider [phone] Reason for Visit * Reason Onset Date Comments Nutrition Medication Question 05/30/2023 Encounter Details Date Type Department Care Team ([facility] Contact Info) Description 05/30/2023 Telephone [facility] MEDICINE [address] [place], [place] [phone] Maddie Kim MD [address] [place], [place] [phone] Nutrition Medication Question Social History Tobacco Use [...] documented as of this encounter Care Teams Hydraulic Assembler Relationship Specialty Start Date End Date Maddie Kim MD [address] [place] [address] PCP - General Family Medicine 07/12/20 Willie Gage 01/17/22 documented as of this encounter
--- OUTSIDE RECORDS SUMMARY | 2024-12-17 08:08 | XMS_ITS | Encounter Summary ---
Author Organization [employer] Address [address] [place] [address] 7 [place] [address] Care Team Providers Care Medical Appliance Maker Name Role Phone Maddie Kim MD Primary Care Provider [phone] Reason for Visit * Reason Onset Date Comments FYI 02/15/2024 Encounter Details Date Type Department Care Team ([facility] Contact Info) Description 02/15/[address] [facility] MEDICINE [address] [place], [place] [phone] Maddie Kim MD [address] [place], [place] [phone] FY Social History Tobacco Use Types Packs/Day [...] any questions you can contact Lauren at [phone]. documented in this encounter Plan of Treatment Not on file documented as of this encounter Visit Diagnoses Not on filedocumented in this encounter Additional Health Concerns Assessment Noted Time PHQ-9 Depression Total Score: 3 06/15/19 24 11:48 AM EDT documented as of this encounter Care Teams Medical Appliance Maker Relationship Specialty Start Date End Date Maddie Kim MD [address] [place] [phone] PCP - General Family Medicine 07/12/20 Willie Gage 01/17/22 documented as of this encounter
--- OUTSIDE RECORDS SUMMARY | 2024-12-17 08:08 | XMS_ITS | Data Portability ---
Author Organization [employer] [facility], [facility] Address [address] [place] [address] Care Team Providers Care Water Resource Consultant Name Role Phone HIM CCA OTHER Unavailable Primary Care Provider [phone] Assessment Encounter Date Assessment Date Assessment LastModified by Organization Details LastModified Time 09/13/2024 09/13/2024 As noted, we ghassan e called to see this patient regarding concerns of vaginal discharge. Evaluation in the field was performed by my traffic agent colleague, as noted above, I provided real-time [...] Assessment and Plan as documented by the Photoengraver Apprentice. We discussed the diagnostic uncertainty of home [...] Not available 10/05/2024 15:19:23 10/06/2024 10/06/2024 Ms. Dotson is a 49 yo F [...] Assessment and Plan as documented by the Photoengraver Apprentice. We discussed the diagnostic uncertainty of home [...] Assessment and Plan as documented by the Photoengraver Apprentice. We discussed the diagnostic uncertainty of home [...] to call 911- verbalized understanding of instruction [email or web address] Not available 10/26/2024 18:03:11 11/22/2024 11/22/2024 I provided real -time medical direction via phone for this encounter and was available for additional phone-based assistance as needed. I have reviewed and agree with the Assessment and Plan as documented by the Photoengraver Apprentice. Patient given the opportunity to ask questions. Our service contacted for an assessment of: Migraine KO As per above, patient with acute onset of MHA this am. Has taken usual meds. No NSAIDs today. Has tolerated Toradol in the past. Per traffic agent on the scene, VSS, AF Please read the traffic agent note for their exam findings. Impression: Plan: [...] serum or plasma 2024 025 [facility], [address] [place] [address], [id number] 16:35:51 BMP, serum or plasma 2024 025 [facility], [address] [place] [address], [id number] 14:22:54 urinalysis, dipstick 2024 025 [facility], [address] [place] [address], [id number] 14:22:31 Referral None recorded. Procedures None recorded. Surgeries None recorded. Imaging None recorded. Medication Orders ketorolac 30 mg/mL injection solution 2024 025 [facility], [address] [place] [address], [id number], 11:19:38 ketorolac 30 mg/mL injection solution 2024 025 [email or web address] [facility], [address] [place] [address], [id number], 09/07/202 5 17:39:06 acetaminoph en 500 mg tablet [address]/[facility] [id number], [id number] [place], [address], 5 15:18:54 ketorolac 30 mg/mL injection solution [address] [facility], [address] [place] [address], [id number], 5 15:18:54 Patient TargetsNo targets recorded. Patient [...] Name and Address Organization Details Recorded Time 27218 Dilantin medicatio n Not available Not available Not available 02/22/2024 57926 0 Rx[facility] Not Available [facility] 5 14:48:20 13342 sulfameth oxazole medicatio n Not available Not available Not available 02/22/2024 43158 RxNorm Not Available [facility] 5 14:48:20 41848 trimethop rim medicatio n Not available Not available Not available 02/22/2024 87947 RxNorm Not Available [facility] 5 10:23:13 48709 Product containin g penicilli n (product) medicatio n Not available Not available Not available 02/22/2024 30480 8001 SNOMED Not Available [facility] 5 14:48:20 09859 penicilli n G benzathin e medicatio n Not available Not available Not available 02/22/2024 7982 Rx[facility] Not Available [facility] 5 14:48:20 90919 penicilli n G procaine medicatio n Not available Not available Not available 02/22/2024 7983 RxNorm Not Available [facility] 5 14:48:20 38579 Non-stero idal anti-infl ammatory agent (substanc e) medicatio n other Not available high 10/06/2024 95333 5008 SNOMED H/o GIB and gastr ic ulcer s with all NSAID s - told not to take Fawn Coelho MD [address] [facility],[address], [place], [address], [facility] 5 15:15:41 Medications Name Sig Start Date [...] [degF] 16 /min 126/90 mm[Hg] Not Available [employer] 5 13:58:51 Date Recorded Respiratory rate Oxygen saturation Oxygen saturation in Arterial blood by Pulse oximetry Body temperature Heart rate Systolic And Diastolic Provider Name and Address Organization Details Last Updated DateTime 5 16 /min 99 % 99 % 98.8 [degF] 89 /min 116/80 mm[Hg] Not Available [facility] 5 15:10:26 Date Recorded Heart rate Respiratory rate Body temperature Oxygen saturation Oxygen saturation in Arterial blood by Pulse oximetry Systolic And Diastolic Provider Name and Address Organization Details Last Updated DateTime 5 87 /min 18 /min 97.7 [degF] 99 % 99 % 152/98 mm[Hg] Not Available [facility] 5 14:54:26 Date Recorded Body temperature Body height Respiratory rate Body weight Heart rate Oxygen saturation Oxygen saturation in Arterial blood by Pulse oximetry Systolic And Diastolic Provider Name and Address Organization Details Last Updated DateTime 5 98.1 [degF] 157.48 cm 16 /min 44235.4 8 g 73 /min 99 % 99 % 158/84 mm[Hg] Not Available [facility] 5 17:36:19 Date Recorded Oxygen saturation Oxygen [...] ICD10 Code Diagnosis IMO Codes Diagnosis Note [id number] KALYN YAO MD Main - [facility] [address] [place] [address] 02/22/2024 21:29:01 02/23/2024 18:48:12 Urinary symptoms [id number] R39.9 Evaluation in the field was performed by my traffic agent colleague, as noted above, I provided real-time [...] first dose was administer ed by the traffic agent. -To alleviate the burning sensation, a prescripti [...] or flank pain or any other concerns. [id number] Fawn Coelho MD Main - [facility] [address] [place] [phone] 02/23/2024 14:34:12 02/23/2024 18:56:04 Urinary symptoms [id number] R39.9 [id number] Aramis Gallardo MD Main - [facility] [address] [place] [phone] 02/26/2024 11:22:16 02/28/2024 11:56:29 Urinary symptoms [id number] R39.9 Fever 134575626 R50.9 [id number] Jessica Hadley MD Main - [facility] [address] [place] [phone] 03/23/2024 13:03:05 03/25/2024 16:45:46 Urinary symptoms [id number] R39.9 As noted, we were called to see this patient regarding concerns of urinary symptoms. Evaluation in the field was performed by my traffic agent colleague, as noted above, I provided real-time [...] changes to consciousn ess, chest pain, dypsnea. [id number] Alisia Aguirre MD [facility] - [address] [phone] 04/01/2024 18:50:28 04/01/2024 19:49:17 Low back pain [id number] M54.50 48 year old female with a [...] of the lower extremitie s. Prior to [facility]'s visit she took an excedrin which is helping bring the paind own. Exam notable for normal vital signs, neurologic exam is grossly normal. Presentati on consistent with acute on chronic lumbar radiculopa thy, no red flags noted. I have reviewed and agree with the assessment and plan as documented by the traffic agent. I provided real-time medical direction for this encounter and was immediatel y available to provide additional phone-base d assistance as needed. We discussed the diagnostic uncertaint y of home visits and associated risks. We discussed the need to seek care urgently/e mergently in the setting of any new or worsening symptoms. [id number] Fawn Coelho MD [facility] - [address] [phone] 04/18/2024 20:44:44 04/19/2024 19:18:03 Essential hypertension 92147566 I10 [id number] Katia Irvin MD [facility] - [place] [phone] 0 06/17/2024 11:35:49 06/17/2024 13:51:22 Lightheadedness 707091220 R42 88960 44021 DELROY DIAZ MD [facility] - [place] [address] 07/06/2024 17:58:16 07/07/2024 17:54:54 Acute headache 337383308 R51.9 [id number] 45358 Leni Joseph MD [facility] [place] [address] 09/13/2024 13:58:48 09/14/2024 15:14:26 Vaginal discharge 713371167 N89.8 23144 Dizziness 962708985 R42 28900 79026 [place] [address] 10/05/2024 14:54:45 10/06/2024 20:52:55 Spasm of back muscles 896025490 M62.830 757325 13221 Fawn Coelho MD [place] [address] 10/06/2024 14:54:22 10/06/2024 21:05:01 Low back pain 439421677 M54.50 [id number] 94433 TRISTON LOJA NP, [address] [place] [phone] 10/26/2024 17:36:16 10/27/2024 15:59:17 Acute low back pain 338894579 M54.50 [id number] 14320 Fawn Coelho MD [place] [address] 11/22/2024 11:04:45 11/22/2024 12:18:43 Acute migraine [id number] 36072 G43.909 [id number] Health Concerns Section Related Observation LastModified by Organization Detai ls LastModified Time None Recorded Concern Status LastModified by Organization Details LastModified Time None Recorded Advance Directives Directive None Recorded Payers Insurance Date Sequence Insurance Name Policy Number Policy Fernandez Covered Member ID Fernandez Member ID Guarantor Name 11/22/2024 1 [facility] - DOS ON OR AFTER 2022 - DUAL ELIGIBLE - DETENTION OPTIONS AND ONE CARE (MEDICARE REPLACEMENT/ADV ANTAGE - HMO) Atiya Rollearez [id number] Atiya Santosh Mauri Notes Date Note Type [...] signs of when to seek emergency care. Photoengraver Apprentice Organization Information for Sandro Kearney Business Legal Name: [facility] Address: [address] [place] [address], [place]E Osei [address], Electric Power Machine Operator: Jeff Bautista MD CLIA No.: [id number] Photoengraver Apprentice POC Test Results from Sandro Kearney epoc [...] ...................... ...................... ...................... ...................... ...................... ...................... ......... Photoengraver Apprentice Note From Sandro Kearney: This 48-year-old female with a history including but not limited to bipolar disorder, GERD, HTN, anemia requested a visit today address brown vaginal discharge since Sunday. Patient states she believes it's a yeast infection, purchased OTC Monistat and Vagisil topical with no improvement in symptoms. Patient states she's experienced vaginal burning since starting the Vagisil. Patient contacted her JANITOR CUSTODIAN who recommended being swabbed before being treated [...] instructed her to follow up with her JANITOR CUSTODIAN to be swabbed, continue to stay well hydrated and present to the emergency department for any new or worsening severe symptoms such as uncontrollable nausea/vomiting, severe abdominal or flank pain, high fever, altered mental status. The patient was given the opportunity to ask questions and is agreeable to this plan. [facility] [place] Orders: BMP, serum or plasma: Performed urinalysis, dipstick: Performed ...................... ...................... ...................... ...................... ...................... ...................... ......... [facility] Consulted: Leni Joseph ...................... ...................... ...................... ...................... ...................... ...................... ......... Disposition: Fulfilled Leni Joseph MD [address] [place] [address],[address], [place], [address], [employer] [facility] [place] 09/13/2024 14:20:16 10/05/2024 text/html ROS as noted in the [facility] CRC Nurse Triage Notes (Bari Salinas): Reason [...] ...................... ...................... ...................... ...................... ...................... ...................... ......... Photoengraver Apprentice Note From Jacob Miramontes: Pt is a [...] Sunday. Red Flag warnings were gone over. [facility] Medication Orders: acetaminophen 500 mg tablet: Administered ketorolac 30 mg/mL injection solution: Administered ...................... ...................... ...................... ...................... ...................... ...................... ......... [facility] Consulted: Rhea Tolentino ...................... ...................... ...................... ...................... ...................... ...................... ......... Disposition: Lizette RHEA TOLENTINO MD [address] [facility],[address], [place], [address], [employer] 10/06/2024 13:36:11 10/06/2024 text/html CRC Nurse Triage [...] to seek emergency care -Bobo Cordova RN Photoengraver Apprentice Organization Information for Temo Martinez [employer] Legal Name: [employer]. Address: [address] [place] [address], Electric Power Machine Operator: Benjy Haile MD CLIA No.: [id number] Photoengraver Apprentice POC Test Results from Temo Martinez - [facility] iSTAT Chem8+ (15:01:39) Na: 142mEq/L K: 3.9mEq/L Cl: 109mEq/L iCa: 1.26mmol/L TCO2: 21mmol/L Glu: 96mg/dL BUN: 10mg/dL Crea: 0.8mg/dL Hct: 40% Hb: 13.6g/dL Ammol/L Cartridge Number: [id number] Attachments uploaded as part of this test result can be found under Documents section. ...................... ...................... ...................... ...................... ...................... ...................... ......... Photoengraver Apprentice Note From Temo Martinez: Encountered patient conscious, solar and ambulatory. 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 Patient expresses she was seen by the [facility] service on 10/05/24 and was treated with Toradol, was looking for a repeat dose today to hold her over until her primary care appointment on 10/07/24. BMP performed, values uploaded via [employer]. Skin warm, dry and of appropriate color for ethnicity. Head and neck, free of trauma and edema. -JVD. Breath sounds present clear and equal bilaterally. Abdomen is soft, nontender and non-distended. Extremities free of trauma edema. [facility] contacted: reports multiple administrations of Toradol is not part of the [facility] programs standard practice and is also likely to be detrimental to patient. [facility] encourages patient to continue to take her prescribed Flexeril and Tylenol and to also request evaluation by a wafer substrate tester while at her primary care appointment tomorrow. Patient was additionally encouraged to seek further medical attention including 911 if she were to develop chest pain and shortness of breath or uncontrollable pain. Patient verbalizes understanding of the plan and states she is comfortable remaining home today. [facility] [place] Orders: BMP, serum or plasma: Performed ...................... ...................... ...................... ...................... ...................... ...................... ......... [facility] [place] Consulted: Fawn Coelho ...................... ...................... ...................... ...................... ...................... ...................... ......... Disposition: Fulfilled Fawn Coelho MD [address] [place] [address],[address], [place], [address], [employer] 10/06/2024 16:28:04 10/26/2024 text/html ROS as noted in the [facility] CRC Nurse Triage Notes (Zaida Zambrano): Reason [...] ...................... ...................... ...................... ...................... ...................... ...................... ......... Photoengraver Apprentice Note From Vaughn Ellington: [facility] responds to the listed address for a 49 yof w/ a c/c of back pain. Upon arrival on scene, pt answers the door to let [facility] inside her small and well-kept apartment she [...] no bladder or bowel incontinence is reported. [facility] obtains a focused assessment on pt's back. No visible or gross abnormalities are noted and pt has full ROM w/ some pain relief w/ back extension. Tenderness upon palpation to the paraspinous regions L and R of L2-L5. No discoloration, bruising, or rash are noted and area is normothermic to touch. [facility] discusses using cold packs and moist heat as well as a topical analgesic to help w/ the pain. [facility] contacts [facility] and discusses the above. After confirming no known kidney issues, GI bleeds, or anticoagulation and reconfirming allergies, [facility] orders 15mg toradol IM and recommends pt contact her PCP. [facility] administers 15mg toradol in the R deltoid using aseptic technique. Red flag warning signs are discussed w/ the pt and she thanks [facility] for coming. [facility] is clear. Report completed by FAVIO Ellington [id number]. [facility] Medication Orders: ketorolac 30 mg/mL injection solution: Administered Comment: R deltoid ...................... ...................... ...................... ...................... ...................... ...................... ......... [facility] Consulted: Triston Loja .Sera................... ...................... ...................... ...................... ...................... ...................... ......... Disposition: Lizette TRISTON LOJA NP, S [address] [facility],[address], [place], [address], [employer] 10/26/2024 18:18:44 11/22/2024 text/html CRC Nurse Triage [...] ...................... ...................... ...................... ...................... ...................... ...................... ......... Photoengraver Apprentice Note From Gunnar Cobb: Arrived to find [...] VS as noted. No red flag symptoms. [facility] contacted advised 30mg toradol IM. 30mg toradol given in right deltoid without incident. Patient in agreement with plan. ...................... ...................... ...................... ...................... ...................... ...................... ......... [facility] Consulted: Fawn Coelho ...................... ...................... ...................... ...................... ...................... ...................... ......... Disposition: Fulfilled Fawn Coelho MD [address] [facility],[address], [place], [address], [employer] 11/22/2024 11:55:19 OBGyn Episode No OBEpisode recorded.
--- OUTSIDE RECORDS SUMMARY | 2024-12-17 08:08 | XMS_ITS | Encounter Summary ---
Author Organization [employer] Address [address] [place] [address] [address] [place] [address] Care Team Providers Care Grounds Worker Name Role Phone Maddie Kim MD Primary Care Provider [phone] Encounter Details Date Type Department Care Team ([facility] st Contact Info) Description 02/22/2024 Orders Only [facility] MEDICINE [address] [place], [place] [phone] Maddie Kim MD [address] [place], [place] [phone] Social History Tobacco Use Types Packs/Day Years [...] documented as of this encounter Care Teams Grounds Worker Relationship Specialty Start Date End Date Maddie Kim MD [address] [place] [id number] PCP - General Family Medicine 07/12/20 Willie Gage 01/17/22 documented as of this encounter
--- OUTSIDE RECORDS SUMMARY | 2024-12-17 08:08 | XMS_ITS | Encounter Summary ---
Author Organization [employer] Address [address] [place] [address] [address] [place] [address] Care Team Providers Care Clip Riveter Name Role Phone Maddie Kim MD Primary Care Provider [phone] Encounter Details Date Type Department Care Team ([facility] st Contact Info) Description 06/13/2023 Orders Only [facility] MEDICINE [address] [place], [place] [phone] Maddie Kim MD [address] [place], [place] [phone] Social History Tobacco Use Types Packs/Day Years [...] documented as of this encounter Care Teams Clip Riveter Relationship Specialty Start Date End Date Maddie Kim MD [address] [place] [address] PCP - General Family Medicine 07/12/20 Willie Gage 01/17/22 documented as of this encounter
--- OUTSIDE RECORDS SUMMARY | 2024-12-17 08:08 | XMS_ITS | Clinical Summary ---
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 She was using [facility], but they cannot come before her work day at 8am. Please write order for media buyer in the morning between 7 and 8 [...] re-iterated that she can reach us through [employer] if she needs anything Assessment & Plan [...] pcn,dilaudid Alcohol use disorder, modera te, dependence ([facility]/HCC) 09/06/2020 02/20/2023 Assessment & Plan (10/06/2022 7:51 [...] sleeve? I think discuss portion sizes with fermentation engineer Assessment & Plan (01/29/2022 10:40 AM EST): [...] Encounters Date Type Department Care Team Description 12/11/2024 Telephone [facility] [address] [place] [address] Kathie Mclean, RN NTTS f/up 12/10/2024 Orders Only GENERIC EXTERNAL DATA DEPARTMENT Provider, Generic External Data 11/21/2024 Orders Only [facility] [address] [place] [address] Maddie Kim MD 11/21/2024 Telephone [facility] [address] [place] [address] Maddie Kim MD Med Refill 11/04/2024 Telephone [facility] [address] [place] [address] Maddie Kim MD Med Refill 10/29/2024 Refill [facility] [address] [place] [address] Maddie Kim MD 10/24/2024 Telephone [facility] [address] [place] [address] Maddie Kim MD Med Refill 10/17/2024 Orders Only [facility] [address] [place] [address] Maddie Kim MD Cervical spine pain (Primary Dx) 10/16/2024 Telephone [facility] [address] [place] [address] Maddie Kim MD Referral 10/14/[address] [address] Maddie Kim MD Referral 10/13/[address] [address] Maddie Kim MD Care Coordination 10/07/2024 11:30 AM EDT Office Visit [address] [address] Maddie Kim MD Sciatic pain, right (Primary Dx); Benign hypertension; Class 2 obesity; Acute bilateral low back pain without sciatica; Chronic midline low back pain without sciatica; Acute upper back pain 10/07/2024 Travel 10/06/[address] [address] Maddie Kim MD Nurse Triage 09/19/[address] [address] Maddie Kim MD Med Refill from Last 3 Months Immunizations Immunization Administration [...] Monitoring 01/04/2025 07/04/2024, 025 Mammogram 05/03/2025 05/04/2023, 02/04/2022, 02/28/2022 Alcohol/Substance Use Screening 07/04/2025 07/04/2024 Disability [...] TO CULTURE Routine 12/10/2024 2:54 AM EDT ETHANOL Routine 12/10/2024 2:53 AM EDT COMPREHENSIVE METABOLIC PANEL Routine 12/10/2024 2:53 AM EDT CBC WITH AUTO DIFFERENTIAL Routine 12/10/2024 2:53 AM EDT PAP SMEAR Routine 01/22/2024 8:03 AM EST LIPID PANEL, STANDARD Routine 09/08/2023 8:43 AM EDT Class 3 severe obesity with serious comorbidity and body mass index (BMI) of 40.0 to 44.9 in adult, unspecified obesity type ([facility]) BI MAMMOGRAM SCREENING TOMOSYNTHESIS BILATERAL Routine 05/04/2023 4:02 PM EDT HPV GENOTYPES 16,18/45 Routine 12:00 AM EDT from Last 3 Months or Most Recently Relevant to Health Maintenance Results * Urinalysis, Complete, with Reflex to Culture (12/10/2024 2:54 AM EDT) Color Urine Yellow [facility] Appearance Urine Clear [facility] PH 6.5 5.0 - 9.0 [facility] Glucose Urine UA Negative Negative mg/dL [facility] Urine Blood Negative Negative [facility] Specific [place] - Urine <=1.005 1.005 - 1.025 [facility] Urine Protein Negative Neg-Trace mg/dL [facility] Urine Ketones Negative Negative mg/dL [facility] Nitrite Urine Negative Negative [facility] Leukocyte Esterase Urine Negative Negative [facility] RBC Urine 0-2 0 - 2 /HPF [facility] Urine WBC 0-5 0 - 5 /HPF [facility] Urine Squamous Epithelial Cell 0-2 0 - 2 /HPF [facility] Urine Bacteria None Seen None Seen [facility] Hyaline Casts, Urine 0-2 0 - 2 /LPF [facility] 12/10/2024 2:54 AM EDT 12/10/2024 3:00 AM EDT Narrative [facility] - 12/10/2024 3:21 AM EDT [id number], [employer] us Generic External Data Provider LAB URINE ORDERAB LES Final Result [facility] [address] [place] [address] [phone] * (ABNORMAL) Drug Monitoring, Panel 1, Screen, Urine (12/10/2024 2:54 AM EDT) Pathologist [facility] Opiate Screen Urine Not Detected Not Detect [facility] Comment:Opiate cut-off is 30 0 ng/mL.Positive results are unconfirmed and should not be used fornon-medical purposes. Barbiturates, Urine Not Detected Not Detect [facility] Comment:Barbiturate cut-off is 200 ng/mL.Positive results are unconfirmed and should not be used fornon-medical purposes. Phencyclidine Screen Urine Not Detected Not Detect [facility] Comment:Phencyclidine cut-of f is 25 ng/mL.Positive results are unconfirmed and should not be used fornon-medical purposes. Amphetamine Screen Urine Not Detected Not Detect [facility] Comment:Amphetamine cut-off is 1000 ng/mL.Positive results are unconfirmed and should not be used fornon-medical purposes. Benzodiazepines Screen Urine Not Detected Not Detect [facility] Comment:Benzodiazepine cut-o ff is 200 ng/mL.Positive results are unconfirmed and should not be used fornon-medical purposes. Cocaine Screen Urine Not Detected Not Detect [facility] Comment:Cocaine cut-off is 3 00 ng/mL.Positive results are unconfirmed and should not be used fornon-medical purposes. Cannabinoid Screen Urine POSITIVE(A) Not Detect [facility] Comment:Cannabinoid cut-off is 50 ng/mL.Positive results are unconfirmed and should not be used fornon-medical purposes. Methadone Screen, Urine Not Detected Not Detect ng/mL [facility] Comment:Methadone cut-off is 300 ng/mL.Positive results are unconfirmed and should not be used fornon-medical purposes. FENTANYL URINE Not Detected Not Detect [facility] Comment:Fentanyl cut-off is 1 ng/mL.Positive results are unconfirmed and should not be used fornon-medical purposes. Oxycodone Urine Screen Not Detected Not Detect ng/mL [facility] Comment:Oxycodone cut-off is 100 ng/mL.Positive results are unconfirmed and should not be used fornon-medical purposes. Buprenorphine Screen Not Detected Not Detect ng/mL [facility] Comment:Buprenorphine cut-of f is 5 ng/mL.Positive results are unconfirmed and should not be used fornon-medical purposes. 12/10/2024 2:54 AM EDT 12/10/2024 3:00 AM EDT us Generic External Data Provider LAB URINE ORDERAB LES Final Result [facility] [address] [place] [address] [phone] * (ABNORMAL) CBC auto differential (12/10/2024 2:53 AM EDT) White Blood Count 8.5 4.8 - 10.8 X10*3/uL [facility] Red Blood Count 5.24 4.20 - 5.50 X10*6/uL [facility] Hemoglobin 12.9 12.0 - 16.0 g/dl [facility] Hematocrit 40.0 37.0 - 47.0 % [facility] Mean Corpuscular Volume 76.3(L) 80.0 - 98.0 fL [facility] Mean Corpuscular Hemoglobin 24.6(L) 27.0 - 33.0 pg [facility] Mean Corpuscular HGB Conc 32.3 31.0 - 35.0 g/dl [facility] Red Cell Distribution Width 12.9 11.0 - 16.0 % [facility] Platelet Count 299 160 - 400 X10*3/uL [facility] Mean Platelet Volume 10.1 9.4 - 12.3 fL [facility] Neutrophils Percent Auto 61.9 45 - 73 % [facility] Imm Gran Pct Auto 0.2 0.0 - 0.4 % [facility] Lymphocytes Percent Auto 26.2 20 - 40 % [facility] Monocytes Percent Auto 8.6 2 - 11 % [facility] Eosinophils Percent Auto 2.6 0 - 4 % [facility] Basophils Percent Auto 0.5 0 - 2 % [facility] NRBC Pct Auto 0.0 0.0 - 0.2 /100WBC [facility] Neutrophils Absolute Auto 5.3 2.0 - 8.3 x10*3/uL [facility] Imm Gran Abs Auto 0.02 0.00 - 0.03 X10*3/uL [facility] Lymphocytes Absolute Auto 2.2 1.2 - 4.9 X10*3/uL [facility] Monocytes Absolute Auto 0.7 0.1 - 1.2 X10*3/uL [facility] Eosinophils Absolute Auto 0.2 0.0 - 0.4 X10*3/uL [facility] Basophils Absolute Auto 0.0 0.0 - 0.2 X10*3/uL [facility] NRBC Abs Auto 0.000 0.0 - 0.012 X10*3/uL [facility] 12/10/2024 2:53 AM EDT 12/10/2024 3:00 AM EDT us Generic External Data Provider LAB BLOOD ORDERAB LES Final Result Performing Organization Address City/State/[facility] Co de Phone Number [facility] [address] [place] [phone] * Pap Smear (01/22/2024 8:03 AM EST) 01/22/2024 8:03 AM EST 01/23/2024 11:00 AM EST Narrative [facility] - 01/25/2024 12:58 PM EST ----- ------- Name: Atiya Esparza Age/Sex: 48/F : 1975 Unit#: [id number] Attend Dr: John Schmidt MD Re01/22/24 Status: DEP REF Location: [facility] Disch: ----- ------- SPEC : [id number] RECD: 01/23/24 STATUS: MEHRDAD GREGG NUM: [id number] MAMADOU: 01/22/24 [facility] DR: John Schmidt MD ENTERED: 01/23/24 SP [...] Material Received ThinPrep-Cervical Copies To: Maddie Kim [address] [place] [phone] John Schmidt MD [facility] [address] [place] [address] Drive [address] [place] [address] ----- ------- Signed (signature on file) YASSINE Garcia (ASC) 01/25/24 1258 ----- ------- END OF REPORT Generic External Data Provider LAB CYTOLOGY ORDE RABLES Final Result Performing Organization Address [facility]/ZIP Co de Phone Number [facility] [address] [place] [address] [phone] * Lipid Panel, Standard (09/08/2023 8:43 AM EDT) Triglycerides 57 <150 mg/dL [facility] Comment:Desirable Triglyceri de: less than 150 mg/dLBorderline High Triglyceride 150-199 mg/dLHigh Triglyceride: 200-499 mg/dLVery High Triglyceride: greater than or equal to 5OO mg/dL Cholesterol 158 <200 mg/dL [facility] Comment:Desirable Cholestero l: less than 200 mg/dLBorderline High Cholesterol: 200-239 mg/dLHigh Cholesterol: greater than 239 mg/dL LDL Cholesterol Calculated 87 <100 mg/dL [facility] Comment:Desirable LDL: less than 100 mg/dLNear Optimal/Above Optimal LDL: 110- 129 mg/dLBorderline High LDL: 130-159 mg/dLHigh LDL: 160-189 mg/dLVery High LDL: greater than or equal to 190 mg/dL HDL Cholesterol 60 >40 mg/dL [facility] Comment:Desirable HDL: great er than 40 mg/dL Note: This HDL assay may give artificially low results in patients with liver disease. Blood Venous blood specimen / Unknown 09/08/2023 8:43 AM EDT 09/08/2023 11:09 AM EDT Maddie Kim MD LAB BLOOD ORDERABLES Final Res ult Performing Organization Address City/[facility]/ZIP Co de Phone Number [facility] [address] [place] [address] [phone] * BI Mammogram Screening Tomosynthesis Bilateral (05/04/2023 4:02 PM EDT) Anatomical Region Laterality Modality Breast Bilateral Mammography 05/04/2023 4:02 PM EDT Narrative 05/26/2023 3:06 PM EDT [facility] [address] [place] [address] Mammography Report Signed Patient: Atiya Esparza MR#: [id number] : 1975 Acct:[id number] Age/Sex: 47 / F ADM Date: 05/04/23 Loc: HO.MAMMO Attending Dr: Maddie Kim MD Ordering Physician: Maddie Kim Results: 1Negative Date of Service: 05/04/23 Follow Up: 1 Year From Orig inal Mammogram Procedure(s): MM tomosynthesis screening BI Accession Number(s): [id number] cc: Maddie Kim EXAMINATION: MM SCREENING DIGITAL [...] in OV> 05/26/23 1503 DD/ 1602 TD/TT: Nozzle And Sleeve Worker: Procedure Note Donotuseinterpreter, Image - 05/26/2023 [facility] [address] [place], [place] [address] Mammography Report Signed Patient: Zain Esparza#: [id number] : 1975Acct:[id number] Age/Sex: 47 / FADM Date: 05/04/23 Loc: MAMMClaudia Attending Dr: Maddie Kim MD Ordering Physician: Jaja Kimults: 1Negative Date of Service: 05/04/23Follow Up: 1 Year From Orig inal Mammogram Procedure(s): MM tomosynthesis screening BI Accession Number(s): [id number] cc: Maddie Kim EXAMINATION: MM SCREENING DIGITAL [...] by Teresita Bey MD in OV> 05/26/23 1509 DD/ 1602 TD/TT: Nozzle And Sleeve Worker: Maddie Kim MD IMG BI PROCEDURES Final Result * HPV GENOTYPES 16,18/45 (12/20/2020 12:00 AM EDT) HPV 16 RNA NOT DETECTED NOT DETECTED [facility] HPV 18/45 RNA NOT DETECTED NOT DETECTED [facility] Comment: Methodology: Color Checker Mediated Amplification The analytical performance characteristics of this assay have been determined by [employer]. The modifications have not been cleared or approved by the FDA. This assay has been validated pursuant to the CLIA regulations and is used for clinical purposes. 12/20/2020 us Maddie Kim MD LAB CYTOLOGY ORDERABLES Final Result [facility] [address] from Last 3 Months or Most Recently Relevant to Health Maintenance Insurance [facility] < 65 [place] [id number] Care Teams Crew Team Member Relationship Specialty Start Date End Date Maddie Kim MD [address] [place] [phone] PCP - General Family Medicine 07/12/20 Willie Gage 01/17/22
--- OUTSIDE RECORDS SUMMARY | 2024-12-17 08:08 | XMS_ITS | Encounter Summary ---
Author Organization [employer] Address [address] [place] [address] 7 [place] [address] Care Team Providers Care Salon Coordinator Name Role Phone Maddie Kim MD Primary Care Provider Reason for Visit * Reason Onset Date Comments Call Back Request 07/26/2023 Encounter Details Date Type Department Care Team ([facility] Contact Info) Description 07/26/2023 Telephone [facility] [address] [place], [place] [phone] Maddie Kim MD [address] [place], [place] [phone] Call Back Request Social History Tobacco Use [...] 07/27/2023 9:31 AM EDT Tc returned to [place], questioning pt.'s risperidone inj rx on med list they received. Looking back in chart, this was discontinued after inpatient hosp in 2020 due to noncompliance with injections. This was the last time it was prescribed. [facility] is requesting this is taken off our med list for accuracy, thank you! * Telephone Encounter - Zach Carlson - 07/26/2023 4:12 PM EDT Tc from [place] [place] with Willie Gage requesting a call back for a med reconciliation. Please contact Georgie at [phone]. documented in this encounter Plan of Treatment Not on file documented as of this encounter Visit Diagnoses Not on filedocumented in this encounter Additional Health Concerns Assessment Noted Time PHQ-9 Depression Total Score: 3 06/15/19 24 11:48 AM EDT documented as of this encounter Care Teams Salon Coordinator Relationship Specialty Start Date End Date Maddie Kim MD [address] [place] [phone] PCP - General Family Medicine 07/12/20 Willie Gage 01/17/22 documented as of this encounter
--- OUTSIDE RECORDS SUMMARY | 2024-12-17 08:08 | XMS_ITS | Encounter Summary ---
Author Organization [employer] Address [address] [place] [address] 7 [place] [address] Care Team Providers Care Commercial Loan Analyst Name Role Phone Maddie Kim MD Primary Care Provider [phone] Reason for Visit * Reason Onset Date Comments Medication Question 08/01/2024 Encounter Details Date Type Department Care Team ([facility] Contact Info) Description 08/01/[address] [facility] [address] [place], [place] [phone] Maddie Kim MD [address] [place], [place] [phone] Medication Question Social History Tobacco Use Types [...] * Telephone Encounter - Maryana Mcmahon - 08/01/2024 1:38 PM EDT Tc from pt requesting if pcp can prescribe pain medication. Pt seen today 08/01 at the [facility], provider: Jayleen Mckeon. documented in this encounter Plan of Treatment Not on file documented as of this encounter Visit Diagnoses Not on filedocumented in this encounter Additional Health Concerns Assessment Noted Time PHQ-9 Depression Total Score: 9 07/05/19 25 6:48 AM EDT documented as of this encounter Care Teams Commercial Loan Analyst Relationship Specialty Start Date End Date Maddie Kim MD [address] [place] [address] PCP - General Family Medicine 07/12/20 Willie Gage 01/17/22 documented as of this encounter
--- OUTSIDE RECORDS SUMMARY | 2024-12-17 08:09 | XMS_ITS | Encounter Summary ---
Author Organization [employer] Address [address] [place] [address] 7t [place] [address] Care Team Providers Care Stunt Man Name Role Phone Maddie Kim MD Primary Care Provider [phone] Encounter Details Date Type Department Care Team ([facility] st Contact Info) Description 11/14/2022 Orders Only [facility] [address] [place] [address] Maddie Kim MD [address] [place] [address] Social History Tobacco Use Types Packs/Day Years [...] documented as of this encounter Care Teams Stunt Man Relationship Specialty Start Date End Date Maddie Kim MD [address] [place] [phone] PCP - General Family Medicine 07/12/20 Willie Gage 01/17/22 documented as of this encounter
--- OUTSIDE RECORDS SUMMARY | 2024-12-17 08:09 | XMS_ITS | Data Portability ---
Author Organization [facility], [facility] Address [address] [place] [address] Care Team Providers Care Process Treater Name Role Phone JEAN-PIERRE MASON Primary Care [...] Bridgettein g, [employer] 2024 025 [id number] [facility], [address] [place] [address], [place], [address], 14:26:09 Procedures None recorded. Surgeries None recorded. Imaging None recorded. Medication Orders clindamycin HCl 300 mg capsule 2024 Antonio bansal [facility] #[id number], [address] [place], [address], 5 12:46:20 Patient TargetsNo targets recorded. Patient [...] Address Organization Details Recorded Time No complaints [id number] Active Status : 'I'; Not Available [facility] 4 09:21:06 Mass of joint of left wrist 3128609200743 9101 Active 2023 Camym Ovalle, OTR/L,CHT [address], [place], [address] , [facility] 4 09:39:49 Fracture of ankle 02074039 Active 2023 [facility] 4 15:14:42 Postoperat laurence pain 307087194 Active 2024 Huma Augustin APRN [address], [place], [address] , [facility] 5 10:10:16 Problem Notes None recorded. Procedures Surgical History Date Name Laterality Status Provider Name and Address Organization Details Recorded Time 11/07/19 63267 Therapeutic Exercise (1:1) completed Julian Vera PT [address], [place], [address], [facility] 11/09/2024 19:58:43 11/07/19 46073: Manual therapy completed Julian Vera PT [address], [place], [address], [facility] 11/09/2024 19:58:43 10/25/19 05263 Therapeutic Exercise (1:1) completed Julian Vera, PT [address], [place], [address], [facility] 10/25/2024 23:06:22 10/25/19 21343: Manual therapy completed Julian Vera, PT [address], [place], [address], [facility] 10/25/2024 23:06:43 10/16/19 30229 Therapeutic Exercise (1:1) completed Krystina Galo, PROMOTIONS EXECUTIVE [address], [place], [address], [facility] 10/16/2024 16:15:04 10/16/19 33209: Hot or Cold Pack completed Krystina Galo, PROMOTIONS EXECUTIVE [address], [place], [address], [facility] 10/16/2024 16:15:20 10/11/19 61442 Therapeutic Exercise (1:1) completed Julian Vera, PT [address], [place], [address], [facility] 10/14/2024 07:11:36 10/11/19 12599: Low complexity PT Eval completed Julian Vera, PT [address], [place], [address], [facility] 10/14/2024 07:11:39 07/09/19 04616 Therapeutic Exercise (1:1) completed Na Gonzalez, PROMOTIONS EXECUTIVE [address], [place], [address], [facility] 07/09/2024 21:36:12 07/09/19 47252: Neuromuscular Re-Education completed Na Gonzalez, PROMOTIONS EXECUTIVE [address], [place], [address], [facility] 07/09/2024 21:40:29 07/04/19 20355: Therapeutic Activities (1:1) cancelled Hector Pyser, PT [address], [place], [address], [facility] 07/02/2024 05:38:15 07/04/19 29679 Therapeutic Exercise (1:1) cancelled Hector Pyser, PT [address], [place], [address], [facility] 07/02/2024 05:38:15 07/04/19 23486: Manual therapy cancelled Hector Pyser, PT [address], [place], [address], [facility] 07/02/2024 05:38:15 07/01/19 13468: Therapeutic Activities (1:1) completed Hector Pyser, PT [address], [place], [address], [facility] 06/30/2024 10:41:35 07/01/19 57207 Therapeutic Exercise (1:1) completed Hector Pyser, PT [address], [place], [address], [facility] 06/30/2024 11:06:28 07/01/19 39791: Manual therapy completed Hector Pyser, PT [address], [place], [address], [facility] 06/30/2024 11:06:16 06/28/19 24706: Therapeutic Activities (1:1) cancelled Hector Pyser, PT [address], [place], [address], [facility] 06/26/2024 12:47:26 06/28/19 96312 Therapeutic Exercise (1:1) cancelled Hector Pyser, PT [address], [place], [address], [facility] 06/26/2024 12:47:26 06/28/19 88196: Manual therapy cancelled Hector Pyser, PT [address], [place], [address], [facility] 06/26/2024 12:47:26 06/25/19 97945: Therapeutic Activities (1:1) cancelled Hector Georgeser, PT [address], [place], [address], [facility] 06/23/2024 16:32:14 06/25/19 03626 Therapeutic Exercise (1:1) cancelled Hector Pyser, PT [address], [place], [address], [facility] 06/23/2024 16:32:14 06/25/19 04359: Manual therapy cancelled Hector Georgeser, PT [address], [place], [address], [facility] 06/23/2024 16:32:14 06/19/19 74654: Therapeutic Activities (1:1) completed Na Gonzalez, PROMOTIONS EXECUTIVE [address], [place], [address], [facility] 06/18/2024 15:01:55 06/19/19 32489 Therapeutic Exercise (1:1) completed Na Gonzalez, PROMOTIONS EXECUTIVE [address], [place], [address], [facility] 06/18/2024 15:01:55 06/19/19 77590: Manual therapy completed Na Gonzalez, PROMOTIONS EXECUTIVE [address], [place], [address], [facility] 06/18/2024 15:01:55 06/13/19 31567: Therapeutic Activities (1:1) completed Na Gonzalez, PROMOTIONS EXECUTIVE [address], [place], [address], [facility] 06/13/2024 07:27:56 06/13/19 52980 Therapeutic Exercise (1:1) completed Na Gonzalez, PROMOTIONS EXECUTIVE [address], [place], [address], [facility] 06/13/2024 07:27:26 06/13/19 83317: Manual therapy completed Na Gonzalez, PROMOTIONS EXECUTIVE [address], [place], [address], [facility] 06/13/2024 07:27:52 06/10/19 30638 Therapeutic Exercise (1:1) completed Hector Pyser, PT [address], [place], [address], [facility] 05/31/2024 14:22:51 06/10/19 94243: Low complexity PT Eval completed Hector Pyser, PT [address], [place], [address], [facility] 05/31/2024 14:22:53 05/01/19 33986 Therapeutic Exercise (1:1) completed Hector Pyser, PT [address], [place], [address], [facility] 04/29/2024 14:50:39 05/01/19 51571: Low complexity PT Eval completed Hector Pyser, PT [address], [place], [address], [facility] 04/29/2024 14:50:41 12/04/19 Sports Knee 4&1 completed Juancarlos Iyer PA-C [address], [place], [address], [facility] 12/04/2023 11:27:50 06/08/19 24 Splint_Short Arm Fiberglass_11+ completed JUNI SHELTON [facility] 06/08/2023 13:25:25 Imaging Results None recorded. Procedure Notes None recorded. Medical Equipment None Reported. Allergies Allergen ID Allergen Name Allergen Category Reaction Reaction Severity Criticality Documentation Date Start Date Code Code System Note Provider Name and Address Organization Details Recorded Time 024943 penicilli n G benzathin e medicatio n Not available Not available Not available 04/23/20232012 7982 RxNorm GOMEZ LAMA [facility], [facility] 4 13:22:51 582886 Dilaudid medicatio n Not available Not available Not available 04/23/20232012 26383 3 RxNorm GOMEZ LAMA [facility], [facility] 4 13:22:48 981845 Bactrim medicatio n Not available Not available Not available 04/23/20232020 34357 9 RxNorm JACKIE CISNEROS [facility], [facility] 5 14:12:53 Medications Name Sig Start [...] Updated DateTime 09/18/2024 157.48 cm 40.1 kg/m2 69097.73 g JACKIE CISNEROS [place] [facility] 09/18/2024 10:54:52 Social History None recorded. Functional Status None recorded. Mental Status None recorded. Family History Nothing Reported. Medical History Condition Response Allergies/Hayfever N Coronary Artery Disease N Anxiety/Depression Y Breathing or lung disorders N Emphysema N Nerve Disorders N Thyroid Problems N COPD N Pacemaker N Anemia N Kidney/Bladder Problems N Vascular Disease N Heart Trouble N Heart Attack (DC) N Gastrointestinal Disease N Cholesterol N Diabetes [...] ICD10 Code Diagnosis IMO Codes Diagnosis Note [id number] Scott Virgen MD [facility] [address] [place] [address] 06/08/2023 13:04:19 06/08/2023 13:29:48 Postoperative care 755344007 Z48.89 [id number] Cammy Ovalle, OTR/L,CHT [facility] [address] [place] [address] 06/19/2023 08:53:48 06/19/2023 09:24:40 Postoperative care 070354697 Z48.89 The surgical dressing is removed and [...] Mass of tara int of left wrist 7417511121 1498756 M25.832 The patient reports her difficulti es [...] digits with full sensation throughout the hand. [id number] MD Monet Leong [facility] [address] [place] [address] 07/04/2023 13:05:09 07/04/2023 14:32:21 Fracture of ankle 28270517 S82.92XD [id number] MD Monet Perry 1st [facility] [address] [place] [address] 07/18/2023 09:13:32 08/07/2023 11:36:21 Ganglion cyst of left volar wrist 1522022036 8898576 M67.122 [id number] MD Monet Leong [facility] [address] [place] [address] 08/29/2023 12:57:16 09/29/2023 06:09:53 Fracture of ankle 19999258 S82.92XD [id number] ALFRED Souza [facility] [address] [place] [address] 12/04/2023 10:33:27 12/27/2023 15:37:25 Pain of left knee joint 8447982255 54880 M25.562 Osteoarthr itis of knee 862522881 M17.9 [id number] MD CAM PerryA - Monet [facility] [address] [place] [address] 03/14/2024 08:45:12 04/01/2024 15:12:53 Carpal tunnel syndrome of right wrist 0122043243 [facility] G56.01 916669 [id number] MD [facility] Salguero [place] [address] [place] [address] 04/10/2024 13:38:45 04/23/2024 08:50:58 Osteoarthritis of left knee joint 3789617922 39011 M17.12 1326787 [id number] Hector Pyser, PT [facility] [address] [place] [address] 04/30/2024 16:44:12 04/30/2024 17:31:01 Osteoarthritis of knee 844121563 M17.12 [id number] Mati Trinh, MARKETING RECRUITER [facility] [address] [place] [address] 05/16/2024 08:50:29 05/30/2024 04:02:27 Osteoarthritis of left knee joint 7889808146 96025 M17.12 2228048 [id number] Hector Pyser, PT [facility] [address] [place] [address] 06/09/2024 16:25:39 06/09/2024 17:48:56 History of left total knee replacement 9464064125 671397 Z96.652 Z47.1 [id number] Alonzo Singleton PA-C [facility] [address] [place] [address] 06/10/2024 12:44:32 06/21/2024 19:41:07 Knee joint prosthesis present 7847294655 02 Z96.652 09428840 [id number] Júniorana Fudge, PROMOTIONS EXECUTIVE [facility] [address] [place] [address] 06/12/2024 11:16:51 06/12/2024 12:04:25 History of left total knee replacement 6974925333 753573 Z96.652 Z47.1 [id number] Na Fudge, PROMOTIONS EXECUTIVE [facility] [address] [place] [address] 06/18/2024 14:25:56 06/18/2024 17:18:52 History of left total knee replacement 7205772329 688896 Z96.652 Z47.1 [id number] Hector Sams, PT [facility] [address] [place] [address] 06/30/2024 10:08:37 06/30/2024 14:09:41 History of left total knee replacement 7035211541 131156 Z96.652 Z47.1 [id number] Na Gonzalez, PROMOTIONS EXECUTIVE [facility] [address] [place] [address] 07/08/2024 16:10:19 07/08/2024 17:23:29 History of left total knee replacement 0910783772 111237 Z96.652 Z47.1 [id number] MD [facility] Sal[facility] [address] [place] [address] [place] [address] 09/18/2024 10:44:43 09/24/2024 14:26:09 History of total knee arthroplasty 2945636136 105 Z96.652 81279424 [id number] Julian Chuy, PT [facility] [address] [place] [address] 10/10/2024 15:00:25 10/10/2024 16:11:43 Pain of left knee joint 7955549711 28907 M25.562 [id number] Krystina Galo, PROMOTIONS EXECUTIVE [facility] [address] [place] [address] 10/15/2024 15:18:59 10/15/2024 15:59:03 Pain of left knee joint 9225284793 21061 M25.562 [id number] Julian Chuy, PT [facility] [address] [place] [address] 10/24/2024 15:07:10 10/24/2024 16:05:18 Pain of left knee joint 2365794752 83723 M25.562 156407 [id number] Julian Chuy, PT [facility] [address] [place] [address] 11/06/2024 15:04:33 11/06/2024 16:31:36 Pain of left knee joint 2166524886 03174 M25.562 [id number] Health Concerns Section Related Observation LastModified by Organization Detai ls LastModified Time None Recorded Concern Status LastModified by Organization Details LastModified Time None Recorded Advance Directives Directive None Recorded Payers Insurance Date Sequence Insurance Name Policy Number Policy Fernandez Covered Member ID Fernandez Member ID Guarantor Name 11/08/2024 1 [facility] - DOS ON OR AFTER 2022 - ONE CARE (MEDICARE REPLACEMENT/ADV ANTAGE - HMO) Atiya Dotson [id number] Atiya Dotson Notes Date Note Type Note [...] Vera, PT [address], [place], [address], [facility] 10/14/2024 07:21:32 10/15/2024 text/html Pt reports knee is fair, more soreness. Krystina Galo, PROMOTIONS EXECUTIVE [address], [place], [address], [facility] 10/16/2024 16:19:29 10/24/2024 text/html Pt reports L knee has buckled a few times today (not really sure why), and also reporting L knee is still getting sore. Julian Vera, PT [address], [place], [address], [facility] 10/25/2024 23:08:14 11/06/2024 text/html Pt states L knee not really painful anymore though still has buckling episodes. Julian Vera, PT [address], [place], [address], [place] [facility] 11/09/2024 20:04:58 OBGyn Episode No OBEpisode recorded.
--- OUTSIDE RECORDS SUMMARY | 2024-12-17 08:09 | XMS_ITS | Encounter Summary ---
Author Organization [employer] Address [address] [place] [address] 7 [place] [address] Care Team Providers Care Pc Analyst Name Role Phone Maddie Kim MD Primary Care Provider [phone] Encounter Details Date Type Department Care Team (Late st Contact Info) Description 04/11/2022 Abstract [facility] MEDICINE [address] [place] [address] Maddie Kim MD [address] [place] [address] Social History Tobacco Use Types Packs/Day Years [...] on filedocumented in this encounter Care Teams Pc Analyst Relationship Specialty Start Date End Date Maddie Kim MD [address] [place] [address] PCP - General Family Medicine 07/12/20 Willie Gage 01/17/22 documented as of this encounter
--- OUTSIDE RECORDS SUMMARY | 2024-12-17 08:09 | XMS_ITS | Encounter Summary ---
Author Organization [employer] Address [address] [place] [address] 7 [place] [address] Care Team Providers Care Director Of Restaurant Name Role Phone Maddie Kim MD Primary Care Provider [phone] Encounter Details Date Type Department Care Team (Late st Contact Info) Description 03/30/2022 Abstract [facility] MEDICINE [address] [place] [address] Maddie Kim MD [address] [place] [address] Social History Tobacco Use Types Packs/Day Years [...] filedocumented in this encounter Care Teams Director Of Restaurant Relationship Specialty Start Date End Date Maddie Kim MD [address] [place] [address] PCP - General Family Medicine 07/12/20 Willie Gage 01/17/22 documented as of this encounter
--- OUTSIDE RECORDS SUMMARY | 2024-12-17 08:09 | XMS_ITS | Encounter Summary ---
Author Organization [employer] Address [address] [place] [address] 7t [place] [address] Care Team Providers Care Pigment Mixer Name Role Phone Maddie Kim MD Primary Care Provider [phone] Encounter Details Date Type Department Care Team ([facility] Contact Info) Description 08/10/2024 Orders Only [facility] MEDICINE [address] [place], [place] [phone] Maddie Kim MD [address] [place], [place] [phone] Social History Tobacco Use Types Packs/Day Years [...] Date End Date Maddie Kim MD [address] [place] [address] PCP - General Family Medicine 07/12/20 Willie Gage 01/17/22 documented as of this encounter
--- OUTSIDE RECORDS SUMMARY | 2024-12-17 08:09 | XMS_ITS | Encounter Summary ---
Author Organization [employer] Address [address] [place] [address] 7 [place] [address] Care Team Providers Care Refuge Worker Name Role Phone Maddie Kim MD Primary Care Provider [phone] Reason for Visit * Reason Onset Date Comments c/b request 11/10/2022 Encounter Details Date Type Department Care Team ([facility] Contact Info) Description 11/10/2022 Telephone [facility] MEDICINE [address] [place] [phone] Maddie Kim MD [address] [place], [place] [phone] c/b request Social History Tobacco Use Types [...] to medication reconciliation. Please contact [employer] at [phone] documented in this encounter Plan of Treatment Not on file documented as of this encounter Visit Diagnoses Diagnosis Gastroesophageal reflux disease without esophagitis Esophageal reflux documented in this encounter Additional Health Concerns Assessment Noted Time PHQ-9 Depression Total Score: 0 05/30/19 23 3:26 PM EDT documented as of this encounter Care Teams Refuge Worker Relationship Specialty Start Date End Date Maddie Kim MD [address] [place] [address] PCP - General Family Medicine 07/12/20 Willie Gage 01/17/22 documented as of this encounter
--- OUTSIDE RECORDS SUMMARY | 2024-12-17 08:10 | XMS_ITS | Encounter Summary ---
Author Organization [employer] Address [address] [place] [address] 7 [place] [address] Care Team Providers Care Tube Station Attendant Name Role Phone Maddie Kim MD Primary Care Provider [phone] Reason for Visit * Reason Onset Date Comments Verbal orders/ Medication question 05/08/2023 Encounter Details Date Type Department Care Team ([facility] Contact Info) Description 05/08/2023 Telephone [facility] MEDICINE [address] [place], [place] [phone] Maddie Kim MD [address] [place], [place] [phone] Verbal orders/ Medication question Social History Tobacco [...] 05/09/2023 9:54 AM EDT TC placed to [place] at the [facility] and gave VO for [facility] for 3 times a week. Pt medications were also reconciled and pt reports using Viviscal OTC for hair growth and Calcium + VitD supplements. * Telephone Encounter - Toña Castillo - 05/08/2023 4:20 PM EDT Tc from [facility] requesting some verbal orders reconciliation for skill nursing 3 times a week. Charlotte is also requesting a call back to speak about patient's medications. documented in this encounter Plan of Treatment Not on file documented as of this encounter Visit Diagnoses Not on filedocumented in this encounter Additional Health Concerns Assessment Noted Time PHQ-9 Depression Total Score: 0 05/30/19 23 3:26 PM EDT documented as of this encounter Care Teams Tube Station Attendant Relationship Specialty Start Date End Date Maddie Kim MD [address] [place] [address] PCP - General Family Medicine 07/12/20 Willie Gage 01/17/22 documented as of this encounter
--- OUTSIDE RECORDS SUMMARY | 2024-12-17 08:10 | XMS_ITS | Encounter Summary ---
Author Organization [employer] Address [address] [place] [address] 7t [place] [address] Care Team Providers Care Acupuncture Physician Name Role Phone Maddie Kim MD Primary Care Provider [phone] Reason for Visit * Reason Onset Date Comments Med Refill 04/12/2023 Encounter Details Date Type Department Care Team ([facility] st Contact Info) Description 04/12/2023 Refill [facility] MEDICINE [address] [place], [place] [phone] Maddie Kim MD [address] [place], [place] [phone] Chronic bilateral low back pain without sciatica [...] documented as of this encounter Care Teams Acupuncture Physician Relationship Specialty Start Date End Date Maddie Kim MD [address] [place] [address] PCP - General Family Medicine 07/12/20 Willie Gage 01/17/22 documented as of this encounter
--- OUTSIDE RECORDS SUMMARY | 2024-12-17 08:10 | XMS_ITS | Encounter Summary ---
Author Organization [employer] Address [address] [place] [address] 7 [place] [address] Care Team Providers Care Power Tong Operator Name Role Phone Maddie Kim MD Primary Care Provider [phone] Reason for Visit * Reason Onset Date Comments Hospital Follow-up 03/28/2024 Encounter Details Date Type Department Care Team ([facility] Contact Info) Description 03/28/2024 Telephone [facility] MEDICINE [address] [place] [address] [phone] Maddie Kim MD 230 [place], [place] [phone] Hospital Follow-up Social History Tobacco Use Types [...] from pt requesting a HDF appt. Hospital: [facility] Date of admission: 03/24/24 Discharge date: 03/27/24 Diagnosed: Hyponatremia *Send message to Barry Clinical Care Coordinators documented in this encounter Plan of Treatment Not on file documented as of this encounter Visit Diagnoses Not on filedocumented in this encounter Additional Health Concerns Assessment Noted Time PHQ-9 Depression Total Score: 3 06/15/19 24 11:48 AM EDT documented as of this encounter Care Teams Power Tong Operator Relationship Specialty Start Date End Date Maddie Kim MD [address] [place] [address] PCP - General Family Medicine 07/12/20 Willie Gage 01/17/22 documented as of this encounter
--- OUTSIDE RECORDS SUMMARY | 2024-12-17 08:10 | XMS_ITS | Encounter Summary ---
Author Organization [employer] Address [address] [place] [address] 7t [place] [address] Care Team Providers Care Sales Representative Publications Name Role Phone Maddie Kim MD Primary Care Provider [phone] Reason for Referral * Consultation (Urgent) - Closed Specialty Diagnoses / Procedures Referred By Sindi mejia Referred To Contact Cardiology Diagnoses Primary hypertension Tachycardia Other chest pain Maddie Kim MD 230 [place] [address] Phone: tel: fax: [facility] Referral ID Status Reason Start Date Expiration Date V isits Requested Visits Authorized [id number] Closed Specialty Services Required 05/06/2024 05/06/2025 1 1 Encounter Details Date Type Department Care Team (Late st Contact Info) Description 05/06/2024 Orders Only [facility] 230 [place], [place] [phone] Maddie Kim MD [address] [place], [place] [phone] Primary hypertension (Primary Dx); Tachycardia; Other chest [...] as of this encounter Care Teams Sales Representative Publications Relationship Specialty Start Date End Date Maddie Kim MD [address] [place] [address] PCP - General Family Medicine 07/12/20 Willie Gage 01/17/22 documented as of this encounter
--- OUTSIDE RECORDS SUMMARY | 2024-12-17 08:10 | XMS_ITS | Encounter Summary ---
Author Organization [employer] Address [address] [place] [address] 7t [place] [address] Care Team Providers Care Deflash And Wash Operator Name Role Phone Maddie Kim MD Primary Care Provider [phone] Reason for Visit * Reason Onset Date Comments Med Refill 05/10/2023 Encounter Details Date Type Department Care Team ([facility] st Contact Info) Description 05/10/2023 Refill [facility] 230 [place], [place] [phone] Maddie Kim MD 230 [place], [place] [phone] Chronic bilateral low back pain without sciatica [...] documented as of this encounter Care Teams Deflash And Wash Operator Relationship Specialty Start Date End Date Maddie Kim MD 230 [place] [address] PCP - General Family Medicine 07/12/20 Willie Gage 01/17/22 documented as of this encounter
--- OUTSIDE RECORDS SUMMARY | 2024-12-17 08:10 | XMS_ITS | Encounter Summary ---
Author Organization [employer] Address [address] [place] [address] 7 [place] [address] Care Team Providers Care Blueprint Reader Name Role Phone Maddie Kim MD Primary Care Provider [phone] Reason for Referral * Consultation (Routine) - Closed Specialty Diagnoses / Procedures Referred By Sindi mejia Referred To Contact Nutrition Diagnoses Class 2 severe obesity with serious comorbidity and body mass index (BMI) of 39.0 to 39.9 in adult, unspecified obesity type Maddie Kim MD [address] [place] [address] Phone: tel: fax: Referral ID Status Reason Start Date Expiration Date V isits Requested Visits Authorized [id number] Closed Consult and Treat 04/06/2023 04/05/2024 1 1 Encounter Details Date Type Department Care Team (Late st Contact Info) Description 04/06/2023 Orders Only [facility] MEDICINE [address] [place] [address] [phone] Maddie Kim MD [address] [place] [address] [phone] Class 2 severe obesity with serious comorbidity [...] PM EDT Narrative 05/26/2023 3:06 PM EDT [address] [place] [address] Mammography Report Signed Patient: Atiya Esparza MR#: [id number] : 1975 Acct:[id number] Age/Sex: 47 / F ADM Date: 05/04/23 [facility]: Maddie Kim MD Ordering Physician: Maddie Kim Results: 1Negative Date of Service: 05/04/23 Follow Up: 1 Year From [facility] Mammogram Procedure(s): MM tomosynthesis screening BI Accession Number(s): [id number] cc: Maddie Kim EXAMINATION: MM SCREENING DIGITAL [...] in OV> 05/26/23 1503 DD/ 1602 TD/TT: Wagon Driller: Procedure Note Donotuseinterpreter, Image - 05/26/[address] [place] [address] Mammography Report Signed Patient: Zain Esparza#: [id number] : 1975Acct:[id number] Age/Sex: 47 / FADM Date: 05/04/23 Loc: [facility] Attending Dr: Maddie Kim MD Ordering Physician: Jaja Kimults: 1Negative Date of Service: 05/04/23Follow Up: 1 Year From [facility] Mammogram Procedure(s): MM tomosynthesis screening BI Accession Number(s): [id number] cc: Maddie Kim EXAMINATION: MM SCREENING DIGITAL [...] in OV> 05/26/23 1503 DD/ 1602 TD/TT: Wagon Driller: Maddie Kim MD IMG BI PROCEDURES Final [...] documented as of this encounter Care Teams Blueprint Reader Relationship Specialty Start Date End Date Maddie Kim MD 230 [place] [address] PCP - General Family Medicine 07/12/20 Willie Gage 01/17/22 documented as of this encounter
--- OUTSIDE RECORDS SUMMARY | 2024-12-17 08:10 | XMS_ITS | Encounter Summary ---
Author Organization [employer] Address [address] [facility] 7t [place] [address] Care Team Providers Care News Production Supervisor Name Role Phone Maddie Kim MD Primary Care Provider [phone] Reason for Visit * Reason Comments Med Refill Encounter Details Date Type Department Care Team ([facility] st Contact Info) Description 04/12/2023 Refill [facility] [address] [place] [address] [phone] Isac Gonzalez MD [address] [place] [address] [phone] Chronic bilateral low back pain without sciatica [...] documented as of this encounter Care Teams News Production Supervisor Relationship Specialty Start Date End Date Maddie Kim MD [address] [place] [address] PCP - General Family Medicine 07/12/20 Willie Gage 01/17/22 documented as of this encounter
--- OUTSIDE RECORDS SUMMARY | 2024-12-17 08:10 | XMS_ITS | Encounter Summary ---
Author Organization [employer] Address [address] [place] [address] 7 [place] [address] Care Team Providers Care Linker Up Name Role Phone Maddie Kim MD Primary Care Provider [phone] Reason for Visit * Reason Onset Date Comments Durable Medical Equipment 03/16/2022 Encounter Details Date Type Department Care Team ([facility] st Contact Info) Description 03/16/2022 Telephone [facility] MEDICINE [address] [place] [address] [phone] Maddie Kim MD 230 [place], [place] [phone] Durable Medical Equipment Social History Tobacco Use [...] it can fax to her landlord at [phone]. She would like the script to be to the [facility], [address] [place] [address] If any concerns please contact pt at [phone] documented in this encounter Plan of Treatment Not on file documented as of this encounter Visit Diagnoses Not on filedocumented in this encounter Care Teams Linker Up Relationship Specialty Start Date End Date Maddie Kim MD [address] [place] [address] PCP - General Family Medicine 07/12/20 Willie Gage 01/17/22 documented as of this encounter
--- OUTSIDE RECORDS SUMMARY | 2024-12-17 08:10 | XMS_ITS | Encounter Summary ---
Author Organization [employer] Address [address] [place] [address] 7t [place] [address] Care Team Providers Care Nuclear Operations Specialist Name Role Phone Maddie Kim MD Primary Care Provider [phone] Encounter Details Date Type Department Care Team ([facility] st Contact Info) Description 06/26/2022 Abstract [facility] MED[facility]INE 230 [place], [place] [phone] Maddie Kim MD 230 [place], [place] [phone] Social History Tobacco Use Types Packs/Day Years [...] as of this encounter Care Teams Nuclear Operations Specialist Relationship Specialty Start Date End Date Maddie Kim MD 230 [place] [address] PCP - General Family Medicine 07/12/20 Willie Gage 01/17/22 documented as of this encounter
--- OUTSIDE RECORDS SUMMARY | 2024-12-17 08:10 | XMS_ITS | Encounter Summary ---
Author Organization [employer] Address [address] [facility] 7t [place] [address] Care Team Providers Care Fuel Cell Technician Name Role Phone Maddie Kim MD Primary Care Provider [phone] Reason for Visit * Reason Comments Med Refill Encounter Details Date Type Department Care Team ([facility] st Contact Info) Description 04/12/2023 Refill [facility] [address] [place] [address] [phone] Isac Gonzalez MD [address] [place] [address] [phone] Chronic bilateral low back pain without sciatica [...] as of this encounter Care Teams Fuel Cell Technician Relationship Specialty Start Date End Date Maddie Kim MD [address] [place] [address] PCP - General Family Medicine 07/12/20 Willie Gage 01/17/22 documented as of this encounter
--- OUTSIDE RECORDS SUMMARY | 2024-12-17 08:10 | XMS_ITS | Encounter Summary ---
Author Organization [employer] Address [address] [place] [address] 7t [place] [address] Care Team Providers Care Apprentice Electrician Name Role Phone Maddie Kim MD Primary Care Provider [phone] Encounter Details Date Type Department Care Team ([facility] Contact Info) Description 01/02/2024 Orders Only [facility] MEDICINE 230 [place], [place] [phone] Maddie Kim MD 230 [place], [place] [phone] Social History Tobacco Use Types Packs/Day Years [...] as of this encounter Care Teams Apprentice Electrician Relationship Specialty Start Date End Date Maddie Kim MD [address] [place] [address] PCP - General Family Medicine 07/12/20 Willie Gage 01/17/22 documented as of this encounter
--- OUTSIDE RECORDS SUMMARY | 2024-12-17 08:11 | XMS_ITS | Encounter Summary ---
Author Organization [employer] Address [address] [facility] 7t [place] [address] Care Team Providers Care Railroad Brakeman Name Role Phone Maddie Kim MD Primary Care Provider [phone] Reason for Visit * Reason Onset Date Comments Med Refill 04/04/2023 Encounter Details Date Type Department Care Team ([facility] Contact Info) Description 04/04/2023 Refill [facility] [address] [place] [address] [phone] Isac Gonzalez MD 230 [place], [place] [phone] Chronic bilateral low back pain without sciatica [...] documented as of this encounter Care Teams Railroad Brakeman Relationship Specialty Start Date End Date Maddie Kim MD [address] [place] [address] PCP - General Family Medicine 07/12/20 Willie Gage 01/17/22 documented as of this encounter
--- OUTSIDE RECORDS SUMMARY | 2024-12-17 08:11 | XMS_ITS | Encounter Summary ---
Author Organization [employer] Address [address] [place] [address] 7 [place] [address] Care Team Providers Care Varsity Baseball Coach Name Role Phone Maddie Kim MD Primary Care Provider [phone] Reason for Visit * Reason Onset Date Comments Med Refill 09/19/2024 Encounter Details Date Type Department Care Team ([facility] Contact Info) Description 09/19/2024 Telephone [facility] 230 [place], [place] [phone] Maddie Kim MD 230 [place], [place] [phone] Med Refill Social History Tobacco Use Types [...] the past 12 months, has t he [employer] gas, oil or water company threatened to [...] 1:38 PM EDT Medication was sent to [id number] on 08/27/24 with 2 refills patient can call pharmacy and transfer medication. * Telephone Encounter - Gil Metz - 09/19/2024 1:29 PM EDT TC from pt requesting medication refill. Medications needing refill : Tirzepatide-Weight Management (Zepbound) 10 MG/0.5ML solution auto-injector To be sent to: [facility] - [place], [place] - [address] documented in this encounter Plan of Treatment Not on file documented as of this encounter Visit Diagnoses Not on filedocumented in this encounter Additional Health Concerns Assessment Noted Time PHQ-9 Depression Total Score: 9 07/05/19 25 6:48 AM EDT documented as of this encounter Care Teams Varsity Baseball Coach Relationship Specialty Start Date End Date Maddie Kim MD 230 [place] [address] PCP - General Family Medicine 07/12/20 Willie Gage 01/17/22 documented as of this encounter
--- OUTSIDE RECORDS SUMMARY | 2024-12-17 08:11 | XMS_ITS | Encounter Summary ---
Author Organization [employer] Address [address] [place] [address] 7 [place] [address] Care Team Providers Care Government Clerk Name Role Phone Maddie Kim MD Primary Care Provider [phone] Reason for Visit * Reason Comments Med Change Request Encounter Details Date Type Department Care Team ([facility] Contact Info) Description 07/25/2024 Refill [facility] MED[facility]INE 230 [place], [place] [phone] Maddie Kim MD 230 [place], [place] [phone] Social History Tobacco Use Types Packs/Day Years [...] documented as of this encounter Care Teams Government Clerk Relationship Specialty Start Date End Date Maddie Kim MD 230 [place] [address] PCP - General Family Medicine 07/12/20 Willie Gage 01/17/22 documented as of this encounter
--- OUTSIDE RECORDS SUMMARY | 2024-12-17 08:11 | XMS_ITS | Encounter Summary ---
Author Organization [employer] Address [address] [place] [address] 7 [place] [address] Care Team Providers Care Head Bone Grinder Name Role Phone Maddie Kim MD Primary Care Provider [phone] Reason for Visit * Reason Onset Date Comments Med Refill 03/19/2023 Encounter Details Date Type Department Care Team ([facility] Contact Info) Description 03/19/2023 Telephone [facility] MEDICINE 230 [place], [place] [phone] Maddie Kim MD 230 [place], [place] [phone] Med Refill Social History Tobacco Use Types [...] Pt agrees. MD Maddie Saravia RN; [facility] Team Nurses Caller: Unspecified (2 weeks ago) I wrote her a work excuse extending her time for remote work until 04/05/23 * Telephone Encounter - Maddie Crawford RN - 04/02/2023 3:02 PM EST Images from the original note were not included. Triage call regarding Pt portal message below. Pt continues to have symptoms of Covid. Pt was seen in [facility] 03/29/[address] Gonzalez and dx [...] better sooner will go into office to [facility]. Advised Pt will send this request [...] - Diagnosed With COVID-19 by Doctor (or BAR TACKER/PA) and Mild Symptoms * General Care Advice for COVID-19 Symptoms * Humidifier * Coughing Spells * Pain and Fever Medicines * Mild Stomach and Intestinal Symptoms During COVID-19 Illness [facility] Clinial Support (supporting Lorrie Alaniz [...] as of this encounter Care Teams Head Bone Grinder Relationship Specialty Start Date End Date Maddie Kim MD [address] [place] [address] PCP - General Family Medicine 07/12/20 Willie Gage 01/17/22 documented as of this encounter
--- OUTSIDE RECORDS SUMMARY | 2024-12-17 08:11 | XMS_ITS | Encounter Summary ---
Author Organization [employer] Address [address] [place] [address] 7 [place] [address] Care Team Providers Care Rn Integrated Name Role Phone Maddie Kim MD Primary Care Provider [phone] Reason for Visit * Reason Onset Date Comments NTTS f/up 12/11/2024 Encounter Details Date Type Department Care Team ([facility] Contact Info) Description 12/11/2024 Telephone [facility] MEDICINE 230 [place], [place] [phone] Kathie Mclean RN 230 [place] [address] NTTS f/up Social History Tobacco Use Types Packs/Day Years [...] Telephone Encounter - Kathie Mclean RN - 12/16/2024 12:41 PM EDT TC placed to [facility] at [phone] to determine what is needed to officially discharge pt. And discontinue services so that Bobby can start. Transferred to the department that would handle that, erin, allie detailed message requesting call back to direct ext. Will give them another call in 2 days if no c/b * Telephone Encounter - La Nena Galvan - 12/15/2024 1:42 PM EDT Tc from [facility] stating they do accept the insurance, but another agency is involved. They will not becalling the patient until the other agency discharges the patient. Contact [facility] at [phone] * Telephone Encounter - Kathie Mclean RN - 12/12/2024 1:29 PM EDT Referral for retirement services Faxed to [facility]. Will call to check in Sunday if no c/b with determination TC placed to pt. Pt. Will decrease dose of lisinopril to 10mg daily and hold if BP <120/70. Pt. Reports BP this morning as 100/74 and did not take lisinopril. Pt. Will inform VNA RN that manages medications of dosage change and f/up prn * Telephone Encounter - Maddie Kim MD - 12/12/2024 9:53 AM EDT Thank you for switching her to [facility]. She should be on 10mg of Lisionpril now and hold fro BP reading <120/80. * Telephone Encounter - Kathie Mclean RN - 12/11/2024 3:59 PM EDT NTTS report received. Pt. Called this am to report blood pressure of 90/60.Pt. was advised to call office in the am for consult. Also received [employer] message in regards to pt. Switching VNA agencies from [facility] to [facility]. Notedthis was requested at office visit 10/07/24 but request not forwarded on to nursing staff to do referral. TC placed to [facility], they report OV note will be fine for face to face encounter, just needs to bewithin 90 days. FAX: [phone]. They are aware pt. Will come up as active with another agency. They will call when referral is reviewed. Direct ext. Given. TC placed to pt. And advised of this. Informed referral will be faxed tomorrow and will hopefully be all set by end of next week. Pt. Agrees to plan. Otherwise, pt. Reports BP has been low 2-3x/ week. Pt. Reports she skips lisinopril when BP is <120/80. Pt. Reports when she takes lisinopril, about 4x week, she takes 20mg. Has not tried 10mg. Pt. Reports when BP is <100/70, she has dizziness when changing positions. Reports this morning when it was the lowest (84/62), she almost fell. Reports she retook BP this morning, it was 100/70 and symptoms were almost gone. Now is feeling well. Also noted BP in ED yesterday 127/86. Pt. Reports BPis never above >130/90. Pt. Is open to trying lisinopril at 10mg dose if that is what provider is recommending but is also inquiring at what BP reading she should hold it. Pt. Checks her BP right before taking medication. Advised pt. This information would be forwarded to PCP to advise on BP medication regimen and pt. Agrees to plan. documented in this encounter Plan of Treatment Not on file documented as of this encounter Visit Diagnoses Not on filedocumented in this encounter Additional Health Concerns Assessment Noted Time PHQ-9 Depression Total Score: 9 07/05/19 25 6:48 AM EDT documented as of this encounter Care Teams Rn Integrated Relationship Specialty Start Date End Date Maddie Kim MD 230 [place] [address] PCP - General Family Medicine 07/12/20 Willie Gage 01/17/22 documented as of this encounter
--- OUTSIDE RECORDS SUMMARY | 2024-12-17 08:11 | XMS_ITS | Encounter Summary ---
Author Organization [employer] Address [address] [facility] 7t [place] [address] Care Team Providers Care Skid Strapper Name Role Phone Maddie Kim MD Primary Care Provider [phone] Reason for Visit * Reason Onset Date Comments Med Refill 02/14/2023 Encounter Details Date Type Department Care Team ([facility] Contact Info) Description 02/14/2023 Refill [facility] [address] [place] [address] [phone] Maddie Kim MD 230 [place], [place] [phone] Social History Tobacco Use Types Packs/Day Years [...] documented as of this encounter Care Teams Skid Strapper Relationship Specialty Start Date End Date Maddie Kim MD [address] [place] [address] PCP - General Family Medicine 07/12/20 Willie Gage 01/17/22 documented as of this encounter
--- OUTSIDE RECORDS SUMMARY | 2024-12-17 08:11 | XMS_ITS | Encounter Summary ---
Author Organization [employer] Address [address] [facility] 7t [place] [address] Care Team Providers Care Ancillary Specialist Name Role Phone Maddie Kim MD Primary Care Provider [phone] Reason for Visit * Reason Comments Med Refill Encounter Details Date Type Department Care Team ([facility] st Contact Info) Description 03/18/2023 Refill [facility] [address] [place] [address] [phone] Maddie Kim MD [address] [place] [address] [phone] Social History Tobacco Use Types Packs/Day Years [...] documented as of this encounter Care Teams Ancillary Specialist Relationship Specialty Start Date End Date Maddie Kim MD [address] [place] [address] PCP - General Family Medicine 07/12/20 Willie Gage 01/17/22 documented as of this encounter
--- OUTSIDE RECORDS SUMMARY | 2024-12-17 08:11 | XMS_ITS | Encounter Summary ---
Author Organization [employer] Address [address] [place] [address] 7 [place] [address] Care Team Providers Care Community Relations Police Lieutenant Name Role Phone Maddie Kim MD Primary Care Provider [phone] Reason for Visit * Reason Onset Date Comments Referral 05/05/2024 Encounter Details Date Type Department Care Team ([facility] Contact Info) Description 05/05/2024 Telephone [facility] MEDICINE 230 [place], [place] [phone] Maddie Kim MD 230 [place], [place] [phone] Referral Social History Tobacco Use Types Packs/Day [...] pt requesting referral that was placed for industrial machine assembler needs to say URGENT as pt has [...] of this encounter Care Teams Community Relations Police Lieutenant Relationship Specialty Start Date End Date Maddie Kim MD [address] [place] [address] PCP - General Family Medicine 07/12/20 Willie Gage 01/17/22 documented as of this encounter
--- OUTSIDE RECORDS SUMMARY | 2024-12-17 08:11 | XMS_ITS | Encounter Summary ---
Author Organization [employer] Address [address] [place] [address] 7t [place] [address] Care Team Providers Care Crayon Molding Machine Operator Name Role Phone Maddie Kim MD Primary Care Provider [phone] Encounter Details Date Type Department Care Team ([facility] Contact Info) Description 03/19/2023 Orders Only [facility] 230 [place], [place] [phone] Maddie Kim MD 230 [place], [place] [phone] Herniated lumbar intervertebral disc (Primary Dx) Social [...] documented as of this encounter Care Teams Crayon Molding Machine Operator Relationship Specialty Start Date End Date Maddie Kim MD [address] [place] [address] PCP - General Family Medicine 07/12/20 Willie Gage 01/17/22 documented as of this encounter
--- OUTSIDE RECORDS SUMMARY | 2024-12-17 08:11 | XMS_ITS | Encounter Summary ---
Author Organization [employer] Address [address] [place] [address] 7t [place] [address] Care Team Providers Care Technical Training Specialist Name Role Phone Maddie Kim MD Primary Care Provider [phone] Encounter Details Date Type Department Care Team ([facility] Contact Info) Description 11/21/2024 Orders Only [facility] MED[facility]INE 230 [place], [place] [phone] Maddie Kim MD 230 [place], [place] [phone] Social History Tobacco Use Types Packs/Day Years [...] as of this encounter Care Teams Technical Training Specialist Relationship Specialty Start Date End Date Maddie Kim MD [address] [place] [address] PCP - General Family Medicine 07/12/20 Willie Gage 01/17/22 documented as of this encounter
--- OUTSIDE RECORDS SUMMARY | 2024-12-17 08:11 | XMS_ITS | Encounter Summary ---
Author Organization [employer] Address [address] [facility] 7t [place] [address] Care Team Providers Care Personalized Living Manager Nurse Name Role Phone Maddie Kim MD Primary Care Provider [phone] Reason for Visit * Reason Comments Med Refill Encounter Details Date Type Department Care Team ([facility] st Contact Info) Description 04/05/2023 Refill [facility] [address] [place] [address] [phone] Isac Gonzalez MD [address] [place] [address] [phone] Chronic bilateral low back pain without sciatica [...] - 04/06/2023 12:46 PM EST TC to [facility] pharmacy, T3 RX written 03/29/23 for [...] documented as of this encounter Care Teams Personalized Living Manager Nurse Relationship Specialty Start Date End Date Maddie Kim MD [address] [place] [phone] PCP - General Family Medicine 07/12/20 Willie Gage 01/17/22 documented as of this encounter
--- OUTSIDE RECORDS SUMMARY | 2024-12-17 08:12 | XMS_ITS | Encounter Summary ---
Author Organization [employer] Address [address] [place] [address] 7t [place] [address] Care Team Providers Care College Sports Coach Name Role Phone Maddie Kim MD Primary Care Provider [phone] Encounter Details Date Type Department Care Team ([facility] st Contact Info) Description 07/07/2024 Orders Only [facility] MED[facility]INE 230 [place], [place] [phone] Maddie Kim MD 230 [place], [place] [phone] Benign hypertension (Primary Dx) Social History Tobacco [...] the past 12 months, has t he [employer], gas, oil or water company threatened to [...] EDT) Sodium 136 135 - 145 mmol/L [facility] Potassium 4.3 3.3 - 5.1 mmol/L [facility] Chloride 105 96 - 108 mmol/L [facility] Carbon Dioxide 24 22 - 29 mmol/L [facility] Anion Gap 11(L) 12 - 20 [facility] Urea Nitrogen (BUN) 13 9 - 16 mg/dL [facility] Creatinine, Serum 0.68 0.5 - 1.4 mg/dL [facility] Estimated Glomerular Filt Rate >60 [facility] Comment:Chronic Kidney Disea se: Estimated GFR < 60 mL/min/1.64g0[place] Kidney Disease: Estimated GFR < 15 mL/min/1.73m2 Glucose 88 60 - 115 mg/dL [facility] Calcium 9.3 8.4 - 10.2 mg/dL [facility] Blood Venous blood specimen / Unknown 07/10/2024 8:29 AM EDT 07/10/2024 8:29 AM EDT us Maddie Kim MD LAB BLOOD ORDERABLES Final Res ult [facility] [address] [place] [phone] [phone] documented in this encounter Visit Diagnoses Diagnosis Benign hypertension- Primary Essential hypertension, benign documented in this encounter Additional Health Concerns Assessment Noted Time PHQ-9 Depression Total Score: 9 07/05/19 25 6:48 AM EDT documented as of this encounter Care Teams College Sports Coach Relationship Specialty Start Date End Date Maddie Kim MD 230 [place] [address] PCP - General Family Medicine 07/12/20 Willie Caring 01/17/22 documented as of this encounter
--- OUTSIDE RECORDS SUMMARY | 2024-12-17 08:12 | XMS_ITS | Encounter Summary ---
Author Organization [employer] Address [address] [place] [address] 7t [place] [address] Care Team Providers Care Decating Machine Operator Name Role Phone Maddie Kim MD Primary Care Provider [phone] Encounter Details Date Type Department Care Team ([facility] st Contact Info) Description 04/14/2024 Orders Only [facility] MED[facility] 230 [place], [place] [phone] Maddie Kim MD [address] [place], [place] [phone] Social History Tobacco Use Types Packs/Day Years [...] IMMUNOGLOBULIN G 1545 600 - 1640 mg/dL [facility] IMMUNOGLOBULIN A 197 47 - 310 mg/dL [facility] Immunoglobulin M 46(A) 50 - 300 mg/dL [facility] Comment:THIS TEST WAS PERFOR MED AT:[employer] [place] [phone] PARKINSON MD Immunofixation Result SEE NOTE [facility] Comment:Normal pattern. No m onoclonal proteins detected. 04/14/2024 12:4 7 PM EST 04/14/2024 12:47 PM EST us Generic External Data Provider LAB BLOOD ORDERAB LES Final Result Performing Organization Address [facility] de Phone Number [facility] [address] [place] [phone] * Cortisol Random (04/14/2024 12:47 PM EST) Pathologist [facility] Cortisol Random 5.7 ug/dL [facility] Comment:Reference Range*: Be fore 10 am 6.2-19.4 ug/dL After 5 pm 2.3-11.9 ug/dL*Please interpret above results accordingly.This test was performed using the [employer] chemiluminescentmethod. Values obtained from different assay methods cannotbe used interchangeably.Patients receiving fludrocortisone, prednisolone orprednisone may show artificially elevated cortisol valuesdue to cross-reactivity. 04/14/2024 12:4 7 PM EST 04/14/2024 12:47 PM EST us [employer] External Data Provider LAB BLOOD ORDERAB LES Final Result Performing Organization Address [facility] de Phone Number [facility] [address] [place] [phone] * Ferritin (04/14/2024 12:47 PM EST) Pathologist [facility] Ferritin 61 10 - 250 ng/mL [facility] 04/14/2024 12:4 7 PM EST 04/14/2024 12:47 PM EST Gil Brewer MD LAB BLOOD ORDERABLES Final Resul t Performing Organization Address [facility] Co de Phone Number [facility] [address] [place] [address] [phone] * Iron And Total Iron Binding Capacity (04/14/2024 12:47 PM EST) Pathologist [facility] Iron 77 30 - 160 mcg/dL [facility] Total Iron Binding Capacity 339 228 - 428 mcg/dL [facility] Percent Iron Saturation 23 15 - 50 % [facility] Unsaturated Iron Binding 262 ug/dL [facility] 04/14/2024 12:4 7 PM EST 04/14/2024 12:47 PM EST us Gil Brewer MD LAB BLOOD ORDERABLES Final Resul t [facility] [address] [place] [phone] * (ABNORMAL) Basic Metabolic Panel (04/14/2024 12:47 PM EST) Pathologist [facility] Sodium 139 135 - 145 mmol/L [facility] Potassium 4.3 3.3 - 5.1 mmol/L [facility] Chloride 104 96 - 108 mmol/L [facility] Carbon Dioxide 27 22 - 29 mmol/L [facility] Anion Gap 12 12 - 20 [facility] Urea Nitrogen (BUN) 7(L) 9 - 16 mg/dL [facility] Creatinine, Serum 0.69 0.5 - 1.4 mg/dL [facility] Estimated Glomerular Filt Rate >60 [facility] Comment:Chronic Kidney Disea se: Estimated GFR < 60 mL/min/1.55p7Bdwttb Kidney Disease: Estimated GFR < 15 mL/min/1.73m2 Glucose 84 60 - 115 mg/dL [facility] Calcium 9.5 8.4 - 10.2 mg/dL [facility] 04/14/2024 12:4 7 PM EST 04/14/2024 12:47 PM EST us Gil Brewer MD LAB BLOOD ORDERABLES Final Resul t [facility] [address] [place] [address] [phone] * (ABNORMAL) CBC auto differential (04/14/2024 12:47 PM EST) White Blood Count 6.5 4.8 - 10.8 X10*3/uL [facility] Red Blood Count 3.74(L) 4.20 - 5.50 X10*6/uL [facility] Hemoglobin 9.4(L) 12.0 - 16.0 g/dl [facility] Hematocrit 29.6(L) 37.0 - 47.0 % [facility] Mean Corpuscular Volume 79.1(L) 80.0 - 98.0 fL [facility] Mean Corpuscular Hemoglobin 25.1(L) 27.0 - 33.0 pg [facility] Mean Corpuscular HGB Conc 31.8 31.0 - 35.0 g/dl [facility] Red Cell Distribution Width 16.1(H) 11.0 - 16.0 % [facility] Platelet Count 530(H) 160 - 400 X10*3/uL [facility] Mean Platelet Volume 9.6 9.4 - 12.3 fL [facility] Neutrophils Percent Auto 56.2 45 - 73 % [facility] Imm Gran Pct Auto 0.6(H) 0.0 - 0.4 % [facility] Lymphocytes Percent Auto 32.5 20 - 40 % [facility] Monocytes Percent Auto 8.8 2 - 11 % [facility] Eosinophils Percent Auto 1.4 0 - 4 % [facility] Basophils Percent Auto 0.5 0 - 2 % [facility] NRBC Pct Auto 0.0 0.0 - 0.2 /100WBC [facility] Neutrophils Absolute Auto 3.7 2.0 - 8.3 x10*3/uL [facility] Imm Gran Abs Auto 0.04(H) 0.00 - 0.03 X10*3/uL [facility] Lymphocytes Absolute Auto 2.1 1.2 - 4.9 X10*3/uL [facility] Monocytes Absolute Auto 0.6 0.1 - 1.2 X10*3/uL [facility] Eosinophils Absolute Auto 0.1 0.0 - 0.4 X10*3/uL [facility] Basophils Absolute Auto 0.0 0.0 - 0.2 X10*3/uL [facility] NRBC Abs Auto 0.000 0.0 - 0.012 X10*3/uL [facility] 04/14/2024 12:4 7 PM EST 04/14/2024 12:47 PM EST Gil Brewer MD LAB BLOOD ORDERABLES Final Resul t Performing Organization Address [facility] Co de Phone Number [facility] [address] [place] [phone] * (ABNORMAL) Osmolality, Urine (04/14/2024 12:45 PM EST) OSMOLALITY URINE 212(L) 373 - 1,093 mosm/kg [facility] 04/14/2024 12:4 5 PM EST 04/14/2024 1:55 PM EST us Generic External Data Provider LAB URINE ORDERAB LES Final Result Performing Organization Address [facility] Co de Phone Number [facility] [address] [place] [phone] * Sodium Without creatinine, Random Urine (04/14/2024 12:45 PM EST) Sodium Urine Random 47.0 mmol/L [facility] 04/14/2024 12:4 5 PM EST 04/14/2024 1:55 PM EST us Generic External Data Provider LAB BLOOD ORDERAB LES Final Result Performing Organization Address [facility] Co de Phone Number [facility] [address] [place] [address] [place] [phone] documented in this encounter Visit Diagnoses Not on filedocumented in this encounter Additional Health Concerns Assessment Noted Time PHQ-9 Depression Total Score: 3 06/15/19 24 11:48 AM EDT documented as of this encounter Care Teams Decating Machine Operator Relationship Specialty Start Date End Date Maddie Kim MD [address] [place] [address] PCP - General Family Medicine 07/12/20 Willie Caring 01/17/22 documented as of this encounter
--- OUTSIDE RECORDS SUMMARY | 2024-12-17 08:12 | XMS_ITS | Patient Health Record ---
Author [facility] Address [address] [place] [address] Care Team Providers Care Dynamic Etching Processor Name Role Phone Maya Wu Primary Care Provider Reshma Sky Unavailable [phone] Allergies Allergen (clinical drug ingredient) Drug/Non Drug [...] 09/26/2024 Encounters Encounter Location Date Provider Diagnosis [facility] [address] 07/11/2024 Reshma Perica Pain in right toe(s) M79.674 ; Onychomycosis B35.1 and Ingrown nail L60.[address] [address] 09/26/2024 Reshma Perica Onychomycosis B35.[address] [address] 07/11/2024 Reshma Perica [address] [address] 07/11/2024 Reshma Perica [address] [address] 07/17/2024 Reshma Perica Assessments Encounter Date Diagnosis [...] Insured Coverage Start Date Coverage End Date [facility] [employer] Claims [address] [place] [id number] Atiya Dotson Self - patient is the insured Medical (General) History Medical History History ICD Code Anxiety Arthritis Back,Hip,and Knee pain Depression Gall bladder problems High blood pressure Reflux ( GERD) thyroid ulcer Chicken pox Joint implants/screws Surgical History Surgery Date(Month/Year) gastric bypass 2008 bowel obstruction 2018 Right knee replacement 03/13 knee replacement 05/27/24
--- OUTSIDE RECORDS SUMMARY | 2024-12-17 08:12 | XMS_ITS | Encounter Summary ---
Author Organization [employer] Address [address] [place] [address] 7t [place] [address] Care Team Providers Care Hot Mill Supervisor Name Role Phone Maddie Kim MD Primary Care Provider [phone] Encounter Details Date Type Department Care Team ([facility] st Contact Info) Description 06/13/2024 Orders Only [facility] MEDICINE [address] [place], [place] [phone] Maddie Kim MD [address] [place], [place] [phone] Social History Tobacco Use Types Packs/Day Years [...] documented as of this encounter Care Teams Hot Mill Supervisor Relationship Specialty Start Date End Date Maddie Kim MD [address] [place] [address] PCP - General Family Medicine 07/12/20 Willie Gage 01/17/22 documented as of this encounter
--- OUTSIDE RECORDS SUMMARY | 2024-12-17 08:12 | XMS_ITS | Encounter Summary ---
Author Organization [employer] Address [address] [place] [address] 7 [place] [address] Care Team Providers Care Simulation Analyst Name Role Phone Maddie Kim MD Primary Care Provider [phone] Reason for Visit * Reason Onset Date Comments New Med Request 06/13/2024 Encounter Details Date Type Department Care Team ([facility] Contact Info) Description 06/13/2024 Telephone [facility] [address] [place], [place] [phone] Maddie Kim MD [address] [place], [place] [phone] New Med Request Social History Tobacco Use [...] EDT TC placed to Lauren (Visiting Nurse) [phone] regarding below message. Lauren informed RN that [...] Vitamin D-3 If any questions please contact [phone] documented in this encounter Plan of Treatment Not on file documented as of this encounter Visit Diagnoses Not on filedocumented in this encounter Additional Health Concerns Assessment Noted Time PHQ-9 Depression Total Score: 3 06/15/19 24 11:48 AM EDT documented as of this encounter Care Teams Simulation Analyst Relationship Specialty Start Date End Date Maddie Kim MD [address] [place] [address] PCP - General Family Medicine 07/12/20 Willie Gage 01/17/22 documented as of this encounter
--- OUTSIDE RECORDS SUMMARY | 2024-12-17 08:12 | XMS_ITS | Encounter Summary ---
Author Organization [employer] Address [address] [place] [address] 7 [place] [address] Care Team Providers Care Air Quality Technician Name Role Phone Maddie Kim MD Primary Care Provider [phone] Reason for Visit * Reason Onset Date Comments Medication Question 07/09/2024 Encounter Details Date Type Department Care Team ([facility] Contact Info) Description 07/09/2024 Telephone [facility] MEDICINE [address] [place], [place] [phone] Maddie Kim MD [address] [place], [place] [phone] Medication Question Social History Tobacco Use Types [...] 06/18/24 per PCP note. Patent spoke to animal behaviorist's today and reported that [facility] is unable to break the 30mg lisinopril in half because it is not scored. RN reviewed medication module to pend lisinopril 15mg however 15mg is not an available option. Please advise,Thank you! * Telephone Encounter - Maryana cMmahon - 07/09/2024 2:10 PM EDT Tc from [...] as of this encounter Care Teams Air Quality Technician Relationship Specialty Start Date End Date Maddie Kim MD [address] [place] [address] PCP - General Family Medicine 07/12/20 Willie Gage 01/17/22 documented as of this encounter
--- OUTSIDE RECORDS SUMMARY | 2024-12-17 08:12 | XMS_ITS | Encounter Summary ---
Author Organization [employer] Address [address] [place] [address] 7 [place] [address] Care Team Providers Care Extrusion Supervisor Name Role Phone Maddie Kim MD Primary Care Provider [phone] Reason for Visit * Reason Onset Date Comments Nurse Triage 05/14/2023 Encounter Details Date Type Department Care Team ([facility] st Contact Info) Description 05/14/2023 Telephone [facility] MEDICINE [address] [place], [place] [phone] Maddie Kim MD 230 [place], [place] [phone] Nurse Triage Social History Tobacco Use Types [...] accepted this outcome Any questions to Destiny [phone] documented in this encounter Plan of Treatment Not on file documented as of this encounter Visit Diagnoses Not on filedocumented in this encounter Additional Health Concerns Assessment Noted Time PHQ-9 Depression Total Score: 0 05/30/19 23 3:26 PM EDT documented as of this encounter Care Teams Extrusion Supervisor Relationship Specialty Start Date End Date Maddie Kim MD [address] [place] [phone] PCP - General Family Medicine 07/12/20 Willie Gage 01/17/22 documented as of this encounter
--- OUTSIDE RECORDS SUMMARY | 2024-12-17 08:13 | XMS_ITS | Encounter Summary ---
Author Organization [employer] Address [address] [place] [address] 7 [place] [address] Care Team Providers Care Program Therapist Name Role Phone Maddie Kim MD Primary Care Provider [phone] Reason for Visit * Reason Onset Date Comments Prior Authorization 05/19/2024 Encounter Details Date Type Department Care Team ([facility] Contact Info) Description 05/19/2024 Telephone [facility] [address] [place] [address] [phone] Maddie Kim MD 230 [place], [place] [phone] Prior Authorization Social History Tobacco Use Types [...] Tirzepatide-Weight Management (Zepbound) 2.5 MG/0.5ML solution auto-injector. Signal Maintainer Helper advise pt 7-14 business days. Pt verbalized [...] re fax it over. Contact pt at [phone] documented in this encounter Plan of Treatment Not on file documented as of this encounter Visit Diagnoses Not on filedocumented in this encounter Additional Health Concerns Assessment Noted Time PHQ-9 Depression Total Score: 3 06/15/19 24 11:48 AM EDT documented as of this encounter Care Teams Program Therapist Relationship Specialty Start Date End Date Maddie Kim MD [address] [place] [address] PCP - General Family Medicine 07/12/20 Willie Gage 01/17/22 documented as of this encounter
--- OUTSIDE RECORDS SUMMARY | 2024-12-17 08:13 | XMS_ITS | Encounter Summary ---
Author Organization [employer] Address [address] [place] [address] 7 [place] [address] Care Team Providers Care Patient Centered Care Specialist Name Role Phone Maddie Kim MD Primary Care Provider [phone] Reason for Referral * Consultation (Routine) - Closed Specialty Diagnoses / Procedures Referred By Sindi mejia Referred To Contact Physical Therapy Diagnoses Cervical spine pain Maddie Kim MD [address] [place] [phone] Phone: tel: fax: AT Physical Therapy - [address] [address] Phone: tel: fax: Referral ID Status Reason Start Date Expiration Date V isits Requested Visits Authorized [id number] Closed Specialty Services Required 10/17/2024 10/17/2025 1 1 Encounter Details Date Type Department Care Team (Late st Contact Info) Description 10/17/2024 Orders Only [facility] MEDICINE [address] [place] [address] Maddie Kim MD [address] [place], [place] [phone] Cervical spine pain (Primary Dx) Social History [...] documented as of this encounter Care Teams Patient Centered Care Specialist Relationship Specialty Start Date End Date Maddie Kim MD [address] [place] [address] PCP - General Family Medicine 07/12/20 Willie Gage 01/17/22 documented as of this encounter
[2024-12-17 09:08] LABS: Appearance Urine Clear; Glucose Urine UA Negative (Negative); PH 6.0 (5.0-9.0); Specific Gravity - Urine <= 1.005 (1.005-1.025); UMIC TRIGGER UA YES
[2024-12-17 09:20] LABS: Osmolality, Serum 284 mosm/kg (281-305)
[2024-12-17 09:29] LABS: Anion Gap 11 (12-20); Carbon Dioxide 21 mmol/L (22-29); Chloride 107 mmol/L (96-108); Estimated Glomerular Filt Rate > 60; Magnesium 1.8 mg/dL (1.6-2.6); Potassium 3.8 mmol/L (3.3-5.1); Sodium 135 mmol/L (135-145)
[2024-12-17 09:49] LABS: Free T4 (Free Thyroxine) 0.95 ng/dL (0.71-1.85); Thyroid Stimulating Hormone 0.52 uIU/mL (0.32-4.0)
--- OUTSIDE RECORDS SUMMARY | 2024-12-30 20:00 | XMS_ITS | Clinical Summary ---
Author Organization Unknown Care Team Providers Care Snout Puller Name Role Phone MARLON AHUMADA, JEAN-PIERRE Unavailable Unavailable ENRIQUE WEINSTEINW, WINNIE Unavailable Unavailable JAVIER KASPER, GABBY Unavailable Unavaila april HENDERSON RN, GALLITO Unavailable Unavailable Payers Payer Name Policy Type Policy Number Effective Date Expira tion Date [facility] [place] [id number] [place] [id number] MEDICARE - [facility] [id number] Problems Condition Name Condition Details Condition Category [...] Onset Date Inactive Date Treating Clinician Comments BACTRIM Propensity to adverse reactions Active 05-29 22:33: 41 DILAUDID Propensity to adverse reactions Active 05-29 22:33: 01 PENICILLIN ANALOGS Propensity to adverse reactions Active 2021-02 11:51: 13 DILANTIN KAPSEAL Propensity to adverse reactions Active 2021-02 11:51: 25 Medications Ordered Medication Name Filled Medication Name Start Date Stop Date Current Medication? Ordering Clinician Indication Dosage Frequency Signature (SIG) Comments Components baclofen 10 mg tablet 2020-02 00:00: 00 03-07 00:00 :00 No [id number] 10 mg 3 TIMES DAILY 10 mg 3 TIMES DAILY (route: oral) Med Classific ation: Locomotor System buprenorphi ne 4 mg-naloxone 1 mg sublingual film 2020-02 00:00: 00 04-05 00:00 :00 No [id number] Per instruc tions NEEDED Per instructio ns NEEDED (route: sublingual ) Med Classific ation: Chemical Dependenc y, Agents to Treat divalproex 250 mg tablet,kassandra yed release 2020-02 00:00: 00 04-05 23:59 :00 No [id number] 250 mg DAILY 250 mg DAILY (route: oral) Med Classific ation: Central Nervous System Agents divalproex ER 500 mg tablet,exte nded release 24 hr 2020-02 00:00: 00 04-05 00:00 :00 No [id number] 500 mg 2 TIMES DAILY 500 mg 2 TIMES DAILY (route: oral) Med Classific ation: Central Nervous System Agents ferrous sulfate 325 mg (65 mg iron) tablet 2020-02 00:00: 00 04-05 00:00 :00 No [id number] 1 tablet DAILY 1 tablet DAILY (route: oral) Med Classific ation: Electroly te Balance-N utritiona l Products Invega Sustenna 156 mg/mL intramuscul ar syringe 2020-02 00:00: 00 05-11 23:59 :00 No [id number] 156 mg MONTHLY 156 mg MONTHLY (route: intramuscu lar) Med Classific ation: Central Nervous System Agents levothyroxi ne 25 mcg tablet 2020-02 00:00: 00 03-05 23:59 :00 No [id number] 25 mcg DAILY 25 mcg DAILY (route: oral) Med Classific ation: Endocrine lisinopril 5 mg tablet 2020-02 00:00: 00 11-21 23:59 :00 No [id number] 5 mg DAILY 5 mg DAILY (route: oral) Med Classific ation: Cardiovas cular Therapy Agents nicotine (polacrilex ) 4 mg gum 2020-02 00:00: 00 09-12 23:59 :00 No [id number] 4 gum NEEDED 4 gum NEEDED (route: buccal) Med Classific ation: Chemical Dependenc y, Agents to Treat nicotine 21mg/24hr-1 4mg/24hr-7m g/24hr daily transderm patches,seq uentl 2020-02 00:00: 00 09-12 23:59 :00 No [id number] 21 patch NEEDED 21 patch NEEDED (route: transderma l) Med Classific ation: Chemical Dependenc y, Agents to Treat nystatin 500,000 unit tablet 2020-02 00:00: 00 04-05 00:00 :00 No [id number] In unit 4 TIMES DAILY [id number] In unit 4 TIMES DAILY (route: oral) Med Classific ation: Anti-Infe ctive Agents omeprazole 20 mg tablet,kassandra yed release 2020-02 00:00: 00 12-15 23:59 :00 No [id number] 20 mg DAILY 20 mg DAILY (route: oral) Med Classific ation: Gastroint estinal Therapy Agents prazosin 5 mg capsule 2020-02 00:00: 00 02-14 23:59 :00 No [id number] 5 capsule BEDTIME 5 capsule BEDTIME (route: oral) Med Classific ation: Cardiovas cular Therapy Agents trazodone 50 mg tablet 2020-02 00:00: 00 01-17 23:59 :00 No [id number] 50 mg NEEDED 50 mg NEEDED (route: oral) Med Classific ation: Central Nervous System Agents albuterol sulfate HFA 90 mcg/actuati on aerosol inhaler 04-05 00:00: 00 08-13 23:59 :00 No [id number] 2 puff NEEDED 2 puff NEEDED (route: inhalation ) Med Classific ation: Respirato ry Therapy Agents Aspercreme with Aloe 10 % topical 04-05 00:00: 00 09-12 23:59 :00 No [id number] Per instruc tions NEEDED Per instructio ns NEEDED (route: topical) Med Classific ation: Dermatolo gical cyclobenzap rine 5 mg tablet 04-05 00:00: 00 01-17 23:59 :00 No [id number] 5 mg NEEDED 5 mg NEEDED (route: oral) Med Classific ation: Locomotor System Depakote 500 mg tablet,kassandra yed release 2-15 00:00: 00 05-06 23:59 :00 No [id number] 1000 mg 2 TIMES DAILY 1000 mg 2 TIMES DAILY (route: oral) Med Classific ation: Central Nervous System Agents diphenhydra mine 25 mg capsule 2-15 00:00: 00 06-01 23:59 :00 No [id number] 50 mg NEEDED 50 mg NEEDED (route: oral) Med Classific ation: Respirato ry Therapy Agents hydroxyzine HCl 50 mg tablet -15 00:00: 00 06-01 23:59 :00 No [id number] 50 mg 3 TIMES DAILY 50 mg 3 TIMES DAILY (route: oral) Med Classific ation: Central Nervous System Agents naltrexone 50 mg tablet 04-05 00:00: 00 06-01 23:59 :00 No [id number] 50 mg DAILY 50 mg DAILY (route: oral) Med Classific ation: Antidotes and other Reversal Agents Narcan 4 mg/actuatio n nasal spray 15 00:00: 00 06-01 23:59 :00 No [id number] Per instruc tions NEEDED Per instructio ns NEEDED (route: nasal) Med Classific ation: Antidotes and other Reversal Agents pyridoxine (vitamin B6) 25 mg tablet 2-15 00:00: 00 06-01 23:59 :00 No [id number] 25 mg DAILY 25 mg DAILY (route: oral) Med Classific ation: Electroly te Balance-N utritiona l Products Invega Sustenna 234 mg/1.5 mL intramuscul ar syringe 3-24 00:00: 00 12-15 23:59 :00 No [id number] Per instruc tions MONTHLY Per instructio ns MONTHLY (route: intramuscu lar) Med Classific ation: Central Nervous System Agents Invega Sustenna 234 mg/1.5 mL intramuscul ar syringe 8-14 00:00: 00 11-30 23:59 :00 No [id number] 234 mg MONTHLY 234 mg MONTHLY (route: intramuscu lar) Med Classific ation: Central Nervous System Agents Celebrex 200 mg capsule 2021-02 0- 00:00: 00 03-20 23:59 :00 No [id number] 200 mg 2 TIMES DAILY 200 mg 2 TIMES DAILY (route: oral) Alternate Route: NONE. Med Classific ation: Analgesic , Anti-infl ammatory or Antipyret ic Celebrex 200 mg capsule 03-20 00:00: 00 01-10 23:59 :00 No [id number] 200 mg DAILY 200 mg DAILY (route: oral) Alternate Route: NONE. Med Classific ation: Analgesic , Anti-infl ammatory or Antipyret ic docusate sodium 100 mg capsule 03-20 00:00: 00 01-29 23:59 :00 No [id number] 1 capsule 2 TIMES DAILY 1 capsule 2 TIMES DAILY (route: oral) Alternate Route: NONE. Med Classific ation: Gastroint estinal Therapy Agents Eliquis 2.5 mg tablet 03-20 00:00: 00 09-12 23:59 :00 No [id number] 1 tablet 2 TIMES DAILY 1 tablet 2 TIMES DAILY (route: oral) Med Classific ation: Hematolog ical Agents oxycodone 5 mg tablet 03-20 00:00: 00 04-18 23:59 :00 No [id number] Per instruc tions DIRECTED Per instructio ns DIRECTED (route: oral) Alternate Route: NONE. Med Classific ation: Analgesic , Anti-infl ammatory or Antipyret ic tramadol 50 mg tablet 03-20 00:00: 00 04-18 23:59 :00 No [id number] Per instruc tions DIRECTED Per instructio ns DIRECTED (route: oral) Med Classific ation: Analgesic , Anti-infl ammatory or Antipyret ic gabapentin 300 mg capsule 3-29 00:00: 00 01-10 23:59 :00 No [id number] 1 capsule 3 TIMES DAILY 1 capsule 3 TIMES DAILY (route: oral) Med Classific ation: Central Nervous System Agents cyclobenzap rine 5 mg tablet 7-27 00:00: 00 01-10 23:59 :00 No [id number] 1 tablet 3 TIMES DAILY 1 tablet 3 TIMES DAILY (route: oral) Med Classific ation: Locomotor System baclofen 10 mg tablet 2022-02 1-24 00:00: 00 03-30 23:59 :00 No [id number] 1 tablet DIRECTED 1 tablet DIRECTED (route: oral) Med Classific ation: Locomotor System docusate sodium 100 mg capsule 2022-02 2-11 00:00: 00 12-15 23:59 :00 No [id number] 1 capsule NEEDED 1 capsule NEEDED (route: oral) Med Classific ation: Gastroint estinal Therapy Agents acetaminoph en 300 mg-codeine 30 mg tablet 2-09 00:00: 00 05-15 23:59 :00 No [id number] 1 tablet 3 TIMES DAILY 1 tablet 3 TIMES DAILY (route: oral) Med Classific ation: Analgesic , Anti-infl ammatory or Antipyret ic Paxlovid 300 mg (150 mg x 2)-100 mg tablets in a dose pack 2-09 00:00: 00 04-03 23:59 :00 No [id number] 3 tablet 2 TIMES DAILY 3 tablet 2 TIMES DAILY (route: oral) Med Classific ation: Anti-Infe ctive Agents tizanidine 4 mg tablet 2-09 00:00: 00 01-03 23:59 :00 No [id number] 1 tablet 3 TIMES DAILY 1 tablet 3 TIMES DAILY (route: oral) Med Classific ation: Locomotor System Depakote 500 mg tablet,kassandra yed release 3-23 00:00: 00 03-31 23:59 :00 No [id number] 1000 mg 2 TIMES DAILY 1000 mg 2 TIMES DAILY (route: oral) Med Classific ation: Central Nervous System Agents multivitami n tablet 4-15 00:00: 00 04-21 23:59 :00 No [id number] 1 tablet DIRECTED 1 tablet DIRECTED (route: oral) Med Classific ation: Electroly te Balance-N utritiona l Products gabapentin 300 mg capsule 07-10 00:00: 00 04-24 23:59 :00 No [id number] 2 capsule 3 TIMES DAILY 2 capsule 3 TIMES DAILY (route: oral) Med Classific ation: Central Nervous System Agents paliperidon e ER 1.5 mg tablet,exte nded release 24 hr 07-10 00:00: 00 11-22 23:59 :00 No [id number] 1 tablet DAILY 1 tablet DAILY (route: oral) Med Classific ation: Central Nervous System Agents aspirin 81 mg tablet,kassandra yed release 08-14 00:00: 00 08-28 23:59 :00 No [id number] 1 tablet 2 TIMES DAILY 1 tablet 2 TIMES DAILY (route: oral) Med Classific ation: Hematolog ical Agents tramadol 50 mg tablet 08-14 00:00: 00 08-17 23:59 :00 No [id number] 1 tablet DIRECTED 1 tablet DIRECTED (route: oral) Med Classific ation: Analgesic , Anti-infl ammatory or Antipyret ic cyanocobala min (vit B-12) 500 mcg tablet 09-08 00:00: 00 12-15 23:59 :00 No [id number] 1 tablet DAILY 1 tablet DAILY (route: oral) Med Classific ation: Electroly te Balance-N utritiona l Products folic acid 1 mg tablet 09-08 00:00: 00 12-15 23:59 :00 No [id number] 1 tablet DAILY 1 tablet DAILY (route: oral) Med Classific ation: Electroly te Balance-N utritiona l Products High Potency Multivitami n 400 mcg tablet 09-08 00:00: 00 02-17 23:59 :00 No [id number] 2 tablet DAILY 2 tablet DAILY (route: oral) Med Classific ation: Electroly te Balance-N utritiona l Products magnesium citrate 125 mg capsule 09-08 00:00: 00 05-12 23:59 :00 No [id number] 2 capsule DAILY 2 capsule DAILY (route: oral) Med Classific ation: Electroly te Balance-N utritiona l Products Vitamin B-1 50 mg tablet 7- 00:00: 00 03-25 23:59 :00 No [id number] 1 tablet DAILY 1 tablet DAILY (route: oral) Med Classific ation: Electroly te Balance-N utritiona l Products minoxidil 2.5 mg tablet 7 00:00: 00 12-17 23:59 :00 No [id number] .25 tablet DAILY .25 tablet DAILY (route: oral) Med Classific ation: Cardiovas cular Therapy Agents lisinopril 10 mg tablet 2023-02 0-03 00:00: 00 11-27 23:59 :00 No [id number] 2 tablet DAILY 2 tablet DAILY (route: oral) Med Classific ation: Cardiovas cular Therapy Agents lisinopril 40 mg tablet 2023-02 0 00:00: 00 06-18 23:59 :00 No [id number] 40 mg EVERY AM 40 mg EVERY AM (route: oral) Med Classific ation: Cardiovas cular Therapy Agents minoxidil 2.5 mg tablet 2023-02 00:00: 00 12-15 23:59 :00 No [id number] 0.5 tablet DAILY 0.5 tablet DAILY (route: oral) Med Classific ation: Cardiovas cular Therapy Agents Celebrex 200 mg capsule 2023-02 00:00: 00 12-15 23:59 :00 No [id number] 1 capsule EVERY PM 1 capsule EVERY PM (route: oral) Med Classific ation: Analgesic , Anti-infl ammatory or Antipyret ic cyclobenzap rine 10 mg tablet 2023-02 00:00: 00 03-28 23:59 :00 No [id number] 1 tablet 3 TIMES DAILY 1 tablet 3 TIMES DAILY (route: oral) Med Classific ation: Locomotor System hydrochloro thiazide 25 mg tablet 2023-02 00:00: 00 03-28 23:59 :00 No [id number] 1 tablet EVERY AM 1 tablet EVERY AM (route: oral) Med Classific ation: Cardiovas cular Therapy Agents metformin ER 1,000 mg 24 hr tablet,exte nded release (gastric reten.) 2023-02 00:00: 00 03-18 23:59 :00 No [id number] 2 tablet EVERY PM 2 tablet EVERY PM (route: oral) Med Classific ation: Endocrine naltrexone 50 mg tablet 2023-02 00:00: 00 02-14 23:59 :00 No [id number] 1 tablet EVERY AM 1 tablet EVERY AM (route: oral) Med Classific ation: Chemical Dependenc y, Agents to Treat prazosin 5 mg capsule 2023-02 00:00: 00 12-15 23:59 :00 No [id number] 1 capsule BEDTIME 1 capsule BEDTIME (route: oral) Med Classific ation: Cardiovas cular Therapy Agents Laxative (bisacodyl) 5 mg tablet 2023-02 00:00: 00 Yes [id number] 2 tablet BEDTIME 2 tablet BEDTIME (route: oral) Med Classific ation: Gastroint estinal Therapy Agents nitrofurant oin monohydrate /macrocryst als 100 mg capsule 02-22 00:00: 00 02-28 23:59 :00 No [id number] 1 capsule EVERY 12 HOURS 1 capsule EVERY 12 HOURS (route: oral) Med Classific ation: Genitouri nary Therapy metformin ER 500 mg tablet,exte nded release 24 hr 03-18 00:00: 00 04-21 23:59 :00 No [id number] 2 tablet EVERY PM 2 tablet EVERY PM (route: oral) Med Classific ation: Endocrine thiamine HCl (vitamin B1) 100 mg tablet 03-24 00:00: 00 05-13 23:59 :00 No [id number] 1 tablet EVERY AM 1 tablet EVERY AM (route: oral) Med Classific ation: Electroly te Balance-N utritiona l Products Seroquel 50 mg tablet - 00:00: 00 04-21 23:59 :00 No [id number] 1 tablet BEDTIME 1 tablet BEDTIME (route: oral) Med Classific ation: Central Nervous System Agents cyclobenzap rine 10 mg tablet 2023-02 1-18 00:00: 00 05-30 23:59 :00 No [id number] 1 tablet 3 TIMES DAILY 1 tablet 3 TIMES DAILY (route: oral) Med Classific ation: Locomotor System Hydrocil Instant oral packet 2-07 00:00: 00 08-13 23:59 :00 No [id number] 1 packet DAILY 1 packet DAILY (route: oral) Med Classific ation: Gastroint estinal Therapy Agents Senna Lax 8.6 mg tablet 2 00:00: 00 12-15 23:59 :00 No [id number] 2 tablet BEDTIME 2 tablet BEDTIME (route: oral) Med Classific ation: Gastroint estinal Therapy Agents Vivitrol 380 mg intramuscul ar suspension, extended release 03-28 00:00: 00 08-13 23:59 :00 No [id number] Per instruc tions MONTHLY Per instructio ns MONTHLY (route: intramuscu lar) Med Classific ation: Chemical Dependenc y, Agents to Treat Depakote 250 mg tablet,kassandra yed release 2- 00:00: 00 04-21 23:59 :00 No [id number] 1 tablet 2 TIMES DAILY 1 tablet 2 TIMES DAILY (route: oral) Med Classific ation: Central Nervous System Agents Depakote 500 mg tablet,kassandra yed release 2-11 00:00: 00 04-21 23:59 :00 No [id number] 1 tablet 2 TIMES DAILY 1 tablet 2 TIMES DAILY (route: oral) Med Classific ation: Central Nervous System Agents Vitamin D3 50 mcg (2,000 unit) tablet 2-11 00:00: 00 06-18 23:59 :00 No [id number] 2 tablet EVERY AM 2 tablet EVERY AM (route: oral) Med Classific ation: Electroly te Balance-N utritiona l Products nitrofurant oin macrocrysta l 100 mg capsule 2-11 00:00: 00 04-06 23:59 :00 No [id number] 1 capsule 2 TIMES DAILY 1 capsule 2 TIMES DAILY (route: oral) Med Classific ation: Genitouri nary Therapy clonazepam 0.5 mg tablet 2-14 00:00: 00 04-09 23:59 :00 No [id number] 1 tablet DAILY 1 tablet DAILY (route: oral) Med Classific ation: Central Nervous System Agents propranolol 10 mg tablet 2-14 00:00: 00 04-24 23:59 :00 No [id number] 1-2 tablet 3 TIMES DAILY 1-2 tablet 3 TIMES DAILY (route: oral) Med Classific ation: Cardiovas cular Therapy Agents ferrous gluconate 324 mg (37.5 mg iron) tablet 2-20 00:00: 00 04-21 23:59 :00 No [id number] 1 tablet DIRECTED 1 tablet DIRECTED (route: oral) Med Classific ation: Electroly te Balance-N utritiona l Products Depakote 250 mg tablet,kassandra yed release 04-21 00:00: 00 04-24 23:59 :00 No [id number] 1 tablet BEDTIME 1 tablet BEDTIME (route: oral) Med Classific ation: Central Nervous System Agents Depakote 500 mg tablet,kassandra yed release 3- 00:00: 00 04-24 23:59 :00 No [id number] 1 tablet EVERY AM 1 tablet EVERY AM (route: oral) Med Classific ation: Central Nervous System Agents Topamax 50 mg tablet 3-03 00:00: 00 12-15 23:59 :00 No [id number] 1 tablet BEDTIME 1 tablet BEDTIME (route: oral) Med Classific ation: Central Nervous System Agents Vraylar 3 mg capsule 3-03 00:00: 00 07-02 23:59 :00 No [id number] 1 capsule BEDTIME 1 capsule BEDTIME (route: oral) Med Classific ation: Central Nervous System Agents ferrous gluconate 324 mg (37.5 mg iron) tablet 3-03 00:00: 00 12-15 23:59 :00 No [id number] 1 tablet EVERY AM 1 tablet EVERY AM (route: oral) Med Classific ation: Electroly te Balance-N utritiona l Products gabapentin 300 mg capsule 3-07 00:00: 00 05-06 23:59 :00 No [id number] 1 capsule BEDTIME 1 capsule BEDTIME (route: oral) Med Classific ation: Central Nervous System Agents propranolol 10 mg tablet 3-06 00:00: 00 12-15 23:59 :00 No [id number] Per instruc tions 3 TIMES DAILY Per instructio ns 3 TIMES DAILY (route: oral) Med Classific ation: Cardiovas cular Therapy Agents gabapentin 300 mg capsule 3-18 00:00: 00 Yes [id number] 1 capsule 3 TIMES DAILY 1 capsule 3 TIMES DAILY (route: oral) Med Classific ation: Central Nervous System Agents multivitami n tablet 3-24 00:00: 00 12-15 23:59 :00 No [id number] 1 tablet EVERY AM 1 tablet EVERY AM (route: oral) Med Classific ation: Electroly te Balance-N utritiona l Products thiamine HCl (vitamin B1) 50 mg tablet - 00:00: 00 08-13 23:59 :00 No [id number] 1 tablet EVERY AM 1 tablet EVERY AM (route: oral) Med Classific ation: Electroly te Balance-N utritiona l Products baclofen 10 mg tablet -16 00:00: 00 06-05 23:59 :00 No [id number] 1 tablet 3 TIMES DAILY 1 tablet 3 TIMES DAILY (route: oral) Med Classific ation: Locomotor System cyclobenzap rine 10 mg tablet 17 00:00: 00 12-15 23:59 :00 No [id number] 1 tablet 3 TIMES DAILY 1 tablet 3 TIMES DAILY (route: oral) Med Classific ation: Locomotor System Eliquis 2.5 mg tablet -10 00:00: 00 06-28 23:59 :00 No [id number] 1 tablet 2 TIMES DAILY 1 tablet 2 TIMES DAILY (route: oral) Med Classific ation: Hematolog ical Agents oxycodone 10 mg tablet 4-11 00:00: 00 06-04 23:59 :00 No [id number] 0.5-1 tablet EVERY 4 HOURS 0.5-1 tablet EVERY 4 HOURS (route: oral) Med Classific ation: Analgesic , Anti-infl ammatory or Antipyret ic tramadol 50 mg tablet 410 00:00: 00 06-30 23:59 :00 No [id number] 1-2 tablet EVERY 6 HOURS 1-2 tablet EVERY 6 HOURS (route: oral) Med Classific ation: Analgesic , Anti-infl ammatory or Antipyret ic Zepbound 2.5 mg/0.5 mL subcutaneou s pen injector 17 00:00: 00 07-01 23:59 :00 No [id number] 2.5 mg WEEKLY 2.5 mg WEEKLY (route: subcutaneo us) Med Classific ation: Weight Loss/Gain Agents baclofen 10 mg tablet 06-05 00:00: 00 06-19 23:59 :00 No [id number] 1 tablet 3 TIMES DAILY 1 tablet 3 TIMES DAILY (route: oral) Med Classific ation: Locomotor System oxycodone 5 mg tablet 06-11 00:00: 00 06-18 23:59 :00 No [id number] 1-2 tablet EVERY 6 HOURS 1-2 tablet EVERY 6 HOURS (route: oral) Med Classific ation: Analgesic , Anti-infl ammatory or Antipyret ic baclofen 10 mg tablet 06-18 00:00: 00 07-02 23:59 :00 No [id number] 1 tablet 3 TIMES DAILY 1 tablet 3 TIMES DAILY (route: oral) Med Classific ation: Locomotor System oxycodone 5 mg tablet 06-18 00:00: 00 06-25 23:59 :00 No [id number] 1 tablet EVERY 4 HOURS 1 tablet EVERY 4 HOURS (route: oral) Med Classific ation: Analgesic , Anti-infl ammatory or Antipyret ic lisinopril 30 mg tablet 06-18 00:00: 00 08-13 23:59 :00 No [id number] 1 tablet EVERY AM 1 tablet EVERY AM (route: oral) Med Classific ation: Cardiovas cular Therapy Agents Vitamin D3 50 mcg (2,000 unit) capsule 30 00:00: 00 12-15 23:59 :00 No [id number] 1 capsule EVERY AM 1 capsule EVERY AM (route: oral) Med Classific ation: Electroly te Balance-N utritiona l Products Zepbound 5 mg/0.5 mL subcutaneou s pen injector 07-02 00:00: 00 12-15 23:59 :00 No [id number] 5 mg WEEKLY 5 mg WEEKLY (route: subcutaneo us) Med Classific ation: Weight Loss/Gain Agents Vraylar 1.5 mg capsule 07-02 00:00: 00 07-08 23:59 :00 No [id number] 1 capsule BEDTIME 1 capsule BEDTIME (route: oral) Med Classific ation: Central Nervous System Agents baclofen 10 mg tablet 07-02 00:00: 00 07-16 23:59 :00 No [id number] 1 tablet 3 TIMES DAILY 1 tablet 3 TIMES DAILY (route: oral) Med Classific ation: Locomotor System oxycodone 5 mg tablet 07-02 00:00: 00 07-09 23:59 :00 No [id number] 1 tablet EVERY 8 HOURS 1 tablet EVERY 8 HOURS (route: oral) Med Classific ation: Analgesic , Anti-infl ammatory or Antipyret ic gabapentin 300 mg capsule 07-08 00:00: 00 Yes [id number] 1 capsule EVERY AM 1 capsule EVERY AM (route: oral) Med Classific ation: Central Nervous System Agents gabapentin 300 mg capsule 07-08 00:00: 00 08-13 23:59 :00 No [id number] 2 capsule BEDTIME 2 capsule BEDTIME (route: oral) Med Classific ation: Central Nervous System Agents Vraylar 3 mg capsule 07-08 00:00: 00 08-13 23:59 :00 No [id number] 1 capsule BEDTIME 1 capsule BEDTIME (route: oral) Med Classific ation: Central Nervous System Agents bupropion HCl 100 mg tablet 08-13 00:00: 00 12-15 23:59 :00 No [id number] 1 tablet DAILY 1 tablet DAILY (route: oral) Med Classific ation: Central Nervous System Agents gabapentin 400 mg capsule 08-13 00:00: 00 Yes [id number] 3 capsule DAILY 3 capsule DAILY (route: oral) Med Classific ation: Central Nervous System Agents lisinopril 10 mg tablet 08-13 00:00: 00 Yes [id number] 2 tablet DAILY 2 tablet DAILY (route: oral) Med Classific ation: Cardiovas cular Therapy Agents bupropion HCl 100 mg tablet 2024-02 00:00: 00 Yes [id number] 100 mg EVERY AM 100 mg EVERY AM (route: oral) Med Classific ation: Central Nervous System Agents Celebrex 200 mg capsule 2024-02 00:00: 00 Yes [id number] 200 mg EVERY PM 200 mg EVERY PM (route: oral) Med Classific ation: Analgesic , Anti-infl ammatory or Antipyret ic cyanocobala min (vit B-12) 500 mcg tablet 2024-02 00:00: 00 Yes [id number] 500 mcg EVERY AM 500 mcg EVERY AM (route: oral) Med Classific ation: Electroly te Balance-N utritiona l Products cyclobenzap rine 10 mg tablet 2024-02 00:00: 00 Yes [id number] 10 mg NEEDED 10 mg NEEDED (route: oral) Med Classific ation: Locomotor System docusate sodium 100 mg capsule 2024-02 00:00: 00 Yes [id number] 100 mg NEEDED 100 mg NEEDED (route: oral) Med Classific ation: Gastroint estinal Therapy Agents ferrous gluconate 324 mg (37.5 mg iron) tablet 2024-02 00:00: 00 Yes [id number] 324 mg EVERY AM 324 mg EVERY AM (route: oral) Med Classific ation: Electroly te Balance-N utritiona l Products folic acid 1 mg tablet 2024-02 00:00: 00 Yes [id number] 1 mg EVERY AM 1 mg EVER Y AM (route: oral) Med Classific ation: Electroly te Balance-N utritiona l Products Invega Sustenna 234 mg/1.5 mL intramuscul ar syringe 2024-02 00:00: 00 Yes [id number] Per instruc tions MONTHLY Per instructio ns MONTHLY (route: intramuscu lar) Med Classific ation: Central Nervous System Agents minoxidil 2.5 mg tablet 2024-02 00:00: 00 Yes [id number] 0.5 tablet EVERY AM 0.5 tablet EVERY AM (route: oral) Med Classific ation: Cardiovas cular Therapy Agents multivitami n tablet 2024-02 00:00: 00 Yes [id number] 1 tablet EVERY AM 1 tablet EVERY AM (route: oral) Med Classific ation: Electroly te Balance-N utritiona l Products omeprazole 20 mg tablet,kassandra yed release 2024-02 00:00: 00 Yes [id number] 20 mg EVERY AM 20 mg EVERY AM (route: oral) Med Classific ation: Gastroint estinal Therapy Agents prazosin 5 mg capsule 2024-02 00:00: 00 Yes [id number] 5 mg BEDTIME 5 mg BEDTIME (route: oral) Med Classific ation: Cardiovas cular Therapy Agents propranolol 10 mg tablet 2024-02 00:00: 00 Yes [id number] 10 mg 3 TIMES DAILY 10 mg 3 TIMES DAILY (route: oral) Med Classific ation: Cardiovas cular Therapy Agents Senna Lax 8.6 mg tablet 2024-02 00:00: 00 Yes [id number] 8.6 mg BEDTIME 8.6 mg BEDTIME (route: oral) Med Classific ation: Gastroint estinal Therapy Agents Topamax 50 mg tablet 2024-02 00:00: 00 Yes [id number] 50 mg BEDTIME 50 mg BEDTIME (route: oral) Med Classific ation: Central Nervous System Agents Vitamin D3 50 mcg (2,000 unit) capsule 2024-02 00:00: 00 Yes [id number] 50 mcg EVERY AM 50 mcg EVERY AM (route: oral) Med Classific ation: Electroly te Balance-N utritiona l Products Zepbound 5 mg/0.5 mL subcutaneou s pen injector 2024-02 027 00:00: 00 Yes [id number] 5 mg WEEKLY 5 mg WEEKLY (route: subcutaneo us) Med Classific ation: Weight Loss/Gain Agents HYDROCODONE -ACETAMINOP HEN ORAL 819 00:00: 00 10-12 00:00 :00 No 5-325 [...] L PRODUCTS FERROUS SULFATE ORAL 604 00:00: 00 08-22 00:00 :00 No 325 mg (65 mg iron)ON E TABLET 3 TIMES DAILY 325 mg (65 mg iron)ONE TABLET 3 TIMES DAILY (route: ) Alternate Route: (325MG) BY MOUTH . Med Classific ation: ELECTROLY TE BALANCE-N UTRITIONA L PRODUCTS TRAMADOL ORAL 2018-02-07 00:00: 11-28 00:00 :00 No 50 mg [...] ation: CENTRAL NERVOUS SYSTEM AGENTS DIVALPROEX ORAL 604 00:00: 08-22 00:00 :00 No 500 mg2 [...] ation: CENTRAL NERVOUS SYSTEM AGENTS DIVALPROEX ORAL 604 00:00: 00 08-22 00:00 :00 No 250 [...] SYSTEM AGENTS RISPERIDONE ORAL 0 8-10 00:00: 00 10-12 00:00 [...] Classific ation: LOCOMOTOR SYSTEM CYCLOBENZAP RINE ORAL 17 00:00: 07-11 00:00 :00 No 5 mg [...] Observation Time Observation Value Commen ts Temperature 2024-12-10 11:05:00.000 96.9 [degF] Temperature 2024-12-09 08:30:00.000 97.1 [degF] Temperature 2024-12-03 09:44:00.000 97.9 [degF] Temperature 2024-11-25 08:06:00.000 97.1 [degF] Temperature 2024-11-18 07:44:00.000 97.3 [degF] Temperature 2024-11-11 20:50:00.000 97.7 [degF] Temperature 2024-11-04 08:08:00.000 97.1 [degF] Pulse 2024-12-10 11:05:00.000 72 /min Pulse 2024-12-09 08:30:00.000 84 /min Pulse 2024-12-03 09:44:00.000 80 /min Pulse 2024-11-25 08:06:00.000 79 /min Pulse 2024-11-18 07:44:00.000 79 /min Pulse 2024-11-11 20:50:00.000 67 /min Pulse 2024-11-04 08:08:00.000 74 /min O2 Saturation (%) 2024-12-10 11:05:00.000 98 % O2 Saturation (%) 2024-12-09 08:30:00.000 98 % O2 Saturation (%) 2024-11-25 08:06:00.000 98 % O2 Saturation (%) 2024-11-18 07:44:00.000 98 % O2 Saturation (%) 2024-11-11 20:50:00.000 99 % Respirations 2024-12-10 11:05:00.000 16 /min Respirations 2024-12-09 08:30:00.000 16 /min Respirations 2024-12-03 09:44:00.000 18 /min Respirations 2024-11-25 08:06:00.000 16 /min Respirations 2024-11-18 07:44:00.000 16 /min Respirations 2024-11-11 20:50:00.000 16 /min Respirations 2024-11-04 08:08:00.000 16 /min Systolic Blood Pressure 2024-12-10 11:05:00.000 128 mm [Hg] Systolic Blood Pressure 2024-12-09 08:33:00.000 127 mm [Hg] Systolic Blood Pressure 2024-12-03 09:44:00.000 105 mm [Hg] Systolic Blood Pressure 2024-11-25 08:06:00.000 120 mm [Hg] Systolic Blood Pressure 2024-11-18 07:45:00.000 121 mm [Hg] Systolic Blood Pressure 2024-11-11 20:50:00.000 139 mm [Hg] Systolic Blood Pressure 2024-11-04 08:08:00.000 123 mm [Hg] Diastolic Blood Pressure 2024-12-10 11:05:00.000 76 mm [Hg] Diastolic Blood Pressure 2024-12-09 08:33:00.000 89 mm [Hg] Diastolic Blood Pressure 2024-12-03 09:44:00.000 73 mm [Hg] Diastolic Blood Pressure 2024-11-25 08:06:00.000 83 mm [Hg] Diastolic Blood Pressure 2024-11-18 07:45:00.000 86 mm [Hg] Diastolic Blood Pressure 2024-11-11 20:50:00.000 74 mm [Hg] Diastolic Blood Pressure 2024-11-04 08:08:00.000 88 mm [Hg] Plan of Treatment Planned Activity [...] TO PRE-POUR MEDICATION PER MEDICATION LIST WEEKLY . [code = SKILLED NURSE TO PRE-POUR MEDICATION PER MEDICATION LIST WEEKLY .] Future Scheduled Test PATIENT MA Y HAVE [...] PATIENTS MENTAL/BEHAVIORAL STATUS, ASSESS VITAL SIGNS WEEKLY ALLOW 2 PRNS FOR MEDICATION MANAGEMENT. [code = SKILLED NURSE TO O/A OF PATIENTS MENTAL/BEHAVIORAL STATUS, ASSESS VITAL SIGNS WEEKLY ALLOW 2 PRNS FOR MEDICATION MANAGEMENT.] Future Scheduled Test SKILLED NU RSE FOR O/A OF ALTERED MOOD [code = SKILLED NURSE FOR O/A OF ALTERED MOOD] Future Scheduled Test MEDICATION S WILL BE HELD AND STORED IN LOCKBOX [code = MEDICATIONS WILL BE HELD AND STORED IN LOCKBOX] Future Scheduled Test SKILLED NU RSE FOR O/A OF GENERAL HEALTH STATUS OF PAIN, CARDIAC, RESPIRATORY, GASTROINTESTINAL, GENITOURINARY, SKIN, NEUROLOGIC, ENDOCRINE SYSTEMS TO IDENTIFY CHANGES ASSOCIATED WITH EXACERBATION FOR EARLY INTERVENTION OF COMPLICATIONS WEEKLY [code = SKILLED NURSE FOR O/A OF GENERAL HEALTH STATUS OF PAIN, CARDIAC, RESPIRATORY, GASTROINTESTINAL, GENITOURINARY, SKIN, NEUROLOGIC, ENDOCRINE SYSTEMS TO IDENTIFY CHANGES ASSOCIATED WITH EXACERBATION FOR EARLY INTERVENTION OF COMPLICATIONS WEEKLY] Future Scheduled Test SKILLED NU RSE FOR O/A AND SKILLED TEACHING OF COPING SKILLS TO MANAGE ANXIETY AND MAINTAIN SAFETY. [code = SKILLED NURSE FOR O/A AND SKILLED TEACHING OF COPING SKILLS TO MANAGE ANXIETY AND MAINTAIN SAFETY.] Future Scheduled Test SKILLED NU RSE FOR [...] Future Scheduled Test SKILLED NU RSE FOR O/A, TEACHING RELATED TO GERD FOR EARLY IDENTIFICATION OF EXACERBATION OF DISEASE PROCESS. [code = SKILLED NURSE FOR O/A, TEACHING RELATED TO GERD FOR EARLY IDENTIFICATION OF EXACERBATION OF DISEASE PROCESS.] Future Scheduled Test SKILLED NU RSE TO REVIEW PATIENT MEDICATIONS. INSTRUCT PATIENT/CAREGIVER ON MONITORING OF EFFECTIVENESS, ADVERSE DRUG REACTIONS, SIDE EFFECTS OF ALL MEDICATIONS (PRESCRIPTION/-OTC), AND HOW AND WHEN TO REPORT PROBLEMS. [code = SKILLED NURSE TO REVIEW PATIENT MEDICATIONS. INSTRUCT PATIENT/CAREGIVER ON MONITORING OF EFFECTIVENESS, ADVERSE DRUG REACTIONS, SIDE EFFECTS OF ALL MEDICATIONS (PRESCRIPTION/-OTC), AND HOW AND WHEN TO REPORT PROBLEMS.] Future Scheduled Test SKILLED NU RSE FOR ADMINISTRATION AND TEACHING OF PRESCRIBED INJECTION THERAPY FOR INVEGA SUSTENNA MONTHLY [code = SKILLED NURSE FOR ADMINISTRATION AND TEACHING OF PRESCRIBED INJECTION THERAPY FOR INVEGA SUSTENNA MONTHLY] Future Scheduled Test SKILLED NU RSE FOR O/A OF CLIENT'S SOCIAL ISOLATION AND PROVIDE ASSISTANCE TO CLIENT IN DEVELOPMENT OF PLANNED ACTIVITIES [code = SKILLED NURSE FOR O/A OF CLIENT'S SOCIAL ISOLATION AND PROVIDE ASSISTANCE TO CLIENT IN DEVELOPMENT OF PLANNED ACTIVITIES] Future Scheduled Test SKILLED NU RSE TO ASSESS PATIENT S PSYCHOSOCIAL STATUS TO IDENTIFY POTENTIAL ISSUES THAT MAY COMPLICATE THE PROVISION OF THE PLAN OF CARE INCLUDING THE PATIENT S ABILITY TO ACCESS COMMUNITY RESOURCES AND PSYCHOSOCIAL SUPPORT SERVICES. [code = SKILLED NURSE TO ASSESS PATIENT S PSYCHOSOCIAL STATUS TO IDENTIFY POTENTIAL ISSUES THAT MAY COMPLICATE THE PROVISION OF THE PLAN OF CARE INCLUDING THE PATIENT S ABILITY TO ACCESS COMMUNITY RESOURCES AND PSYCHOSOCIAL SUPPORT SERVICES.] Future Scheduled Test SKILLED NU RSE WILL MAINTAIN SITUATIONAL AWARENESS FOR SAFETY AND WILL NOTIFY CLINICAL CUSTOMER CARE ASSISTANT AND PHYSICIAN/PROVIDER WITH ANY CHANGE IN CONDITION. [code = SKILLED NURSE WILL MAINTAIN SITUATIONAL AWARENESS FOR SAFETY AND WILL NOTIFY CLINICAL CUSTOMER CARE ASSISTANT AND PHYSICIAN/PROVIDER WITH ANY CHANGE IN CONDITION.] [...] - TO BE MED ADH ERENT Goal 2024-06-30 Patient Goal - TO BE MED ADH ERENT Goal 2024-08-29 Patient Goal - TO BE MED ADH ERENT Goal 2024-10-28 Patient Goal - TO BE MED ADH ERENT Goal Patient Goal - TO BE MED ADH ERENT Goal Provider Goal - A PLAN OF CARE WILL BE ESTABLISHED THAT MEETS PATIENT'S [facility] NEEDS AND INCLUDES PATIENT GOAL FOR HOME [...] DAILY FUNCTIONS AND HAVE OPTIMAL IMPROVEMENT IN LEVEL OF ANXIETY THROUGHOUT CERTIFICATION PERIOD. Goal Provider Goal - PATIENT WILL REMAIN SAFE WITHOUT DECOMPENSATION IN DEPRESSIVE CONDITION, WHILE MAINTAINING OPTIMAL LEVEL OF MENTAL HEALTH AND WELL BEING THROUGHOUT CERTIFICATION PERIOD. Goal Provider Goal - EXACERBATIONS OF GERD GASTROINTESTINAL DISEASE WILL BE PROMPTLY IDENTIFIED AND INTERVENTIONS IMPLEMENTED TO MINIMIZE RISKS TO PATIENT BY END OF EPISODE. Goal Provider Goal - PATIENT/CAREGIVER WILL VERBALIZE UNDERSTANDING OF EDUCATION PROVIDED ON MEDICATIONS BY THE END OF THE CERTIFICATION PERIOD. Goal Provider Goal - PATIENT WILL RECEIVE INVEGA SUSTENNA ORDERED. PATIENT/CAREGIVER WILL VERBALIZE/DEMONSTRATE KNOWLEDGE OF INJECTION THERAPY BY THE END OF THE CERTIFICATION PERIOD. Goal Provider Goal - PATIENT WILL DEMONSTRATE AN INCREASED INTEREST IN SOCIALIZATION AND ACTIVITIES BY THE END OF THE CERTIFICATION PERIOD. Goal Provider Goal - PSYCHOSOCIAL NEEDS WILL [...] Discharge Condition Discharge Reason Percent Goals Met 2024-11-02 00:00:00 2024-12-31 00:00:00 [facility] [id number] 22.86
== END 2024-12-17 08:04 | disposition home or self-care (01) ==
LOC: HO.LAB 08:03
PROVIDERS: PCP General Practice; Visit Provider Psychiatry & Neurology Psychiatry
DX: F41.1 Generalized anxiety disorder (principal); F31.32 Bipolar disorder, current episode depressed, moderate; Z13.21 Encounter for screening for nutritional disorder
CPT/HCPCS: 36415; 80051; 81001; 82306; 82565; 83735; 83930; 83935; 84439; 84443

== ENCOUNTER → 2024-12-17 08:15 | Outpatient (BNV) | payer OTHER, SELFPAY | PROVIDERS: Visit Provider Psychiatry & Neurology Psychiatry | DX: F31.32 Bipolar disorder, current episode depressed, moderate (principal); F41.3 Other mixed anxiety disorders; F43.10 Post-traumatic stress disorder, unspecified; F10.21 Alcohol dependence, in remission | CPT/HCPCS: 90792 ==

== ENCOUNTER 2025-01-01 10:50 | Outpatient (AMB) | payer OTHER, SELFPAY ==
--- OUTSIDE RECORDS SUMMARY | 2024-12-31 15:45 | XMS_ITS | Encounter Summary ---
Author Organization [employer] Address [address] [place] [address] [address] [place] [address] Care Team Providers Care Borough Coordinator Name Role Phone Maddie Kmi MD Primary Care Provider [phone] Reason for Visit * Reason Comments Follow-up Encounter Details Date Type Department Care Team ([facility] Contact Info) Description 12/31/2024 3:45 PM EST Office Visit [facility] [address] [place] [address] [id number] Maddie Kim MD [address] [place], [place] [phone] Encounter for immunization; Encounter for vaccination Social History Tobacco Use Types Packs/Day Years Used Date Smoking Tobacco: Former Cigarettes 0.5 25.9 S tarted: 02/19/1999 Passive Smoke Exposure: Past [...] Answer Date Recorded Patient Health Questionnaire-9 Score 10 12/31/2024 Patient Health Questionnaire-9 Score 10 12/31/2024 Last PHQ-9: Questionnaire Data Not on file 1 03/02/2024 Housing Stability Answer Date Recorded What is [...] Answer Date Recorded Patient Health Questionnaire-2 Score 3 12/31/2024 Internet Access Answer Date Recorded Internet Access [...] Sign Reading Time Taken Comments Blood Pressure 124/86 12/31/2024 3:46 PM EST Pulse 74 12/31/2024 3:46 PM EST Temperature 36.3 C (97.4 F) 12/31/2024 3:46 PM EST Respiratory Rate 20 12/31/2024 3:46 PM EST Oxygen Saturation 98% 12/31/2024 3:46 PM EST Inhaled Oxygen Concentration - - Weight 83.5 kg (184 lb) 12/31/2024 3:46 PM EST Height 157.5 cm (5' 2 ) 12/31/2024 3:46 PM EST Body Mass Index 33.65 12/31/2024 3:46 PM EST documented in this encounter Functional Status * Over the past 2 weeks, how often have you been bothered by any of the following problems? Question Answer Date of Assessment Author Patient Health Questionnaire -2 Score 3 12/31/2024 3:49 PM EST Zain Johns [place] * Little interest or pleasure in doing things Answer Date of Assessment Author Several days 12/31/2024 3:49 PM Zain Gr MA * Feeling down, depressed, or hopeless Answer Date of Assessment Author More than half the days 12/31/2024 3:49 PM Zain Pereyra [place] * Trouble falling or staying asleep, or sleeping too much Answer Date of Assessment Author Nearly every day 12/31/2024 3:49 PM Zain Gr MA * Feeling tired or having little energy Answer Date of Assessment Author Nearly every day 12/31/2024 3:49 PM Zain Gr MA * Poor appetite or overeating Answer Date of Assessment Author Not at all 12/31/2024 3:49 PM Zain Gr MA * Feeling bad about yourself - or that you are a failure or have let yourself or your family down Answer Date of Assessment Author Not at all 12/31/2024 3:49 PM Zain Gr MA * Trouble concentrating on things, such as reading the newspaper or watching television Answer Date of Assessment Author Several days 12/31/2024 3:49 PM Zain Gr MA * Moving or speaking so slowly that other people could have noticed? Or the opposite - being so fidgety or restless that you have been moving around a lot more than usual. Answer Date of Assessment Author Not at all 12/31/2024 3:49 PM Zain Gr MA * Thoughts that you would be better off or hurting yourself in some way Answer Date of Assessment Author Not at all 12/31/2024 3:49 PM Zain Gr MA * Patient Health Questionnaire-9 Score Answer Date of Assessment Author 10 12/31/2024 3:49 PM Zain Gr MA * Over the last 2 weeks, how often have you been bothered by any of the following problems? Question Answer Date of Assessment Author Feeling nervous, anxious, or on edge 2 12/31/2024 3:48 PM Zain Gr MA Not being able to stop or co ntrol worrying 2 12/31/2024 3:48 PM Zain Gr MA Worrying too much about diff erent things 2 12/31/2024 3:48 PM Zain Gr MA Trouble relaxing 1 12/31/2024 3:48 PM EST Zain Amaya MA Being so restless that it is hard to sit still 0 12/31/2024 3:48 PM Zain Gr MA Becoming easily annoyed or irritable 1 12/31/2024 3:48 PM Zain Gr MA Feeling afraid as if somethi ng awful might happen 1 12/31/2024 3:48 PM Zain Gr MA IRENE-7 Total Score 9 12/31/2024 3:48 PM Zain Gr MA * How difficult have these problems made it for you to do your work, take care of things at home, or get along with other people? Answer Date of Assessment Author Very difficult 12/31/2024 3:49 PM Zain Gr MA documented as of this encounter Plan of Treatment Not on file documented as of this encounter Visit Diagnoses Diagnosis Encounter for immunization Encounter for vaccination documented in this encounter Additional Health Concerns Assessment Noted Time PHQ-9 Depression Total Score: 10 025 3:49 PM EST documented as of this encounter Care Teams Borough Coordinator Relationship Specialty Start Date End Date Maddie Kim MD [address] [place] [address] PCP - General Family Medicine 07/12/20 Willie Gage 01/17/22 documented as of this encounter
[2025-01-01 11:05] VITALS: BP 110/70; BMI 33.9
--- NOTE | 2025-01-01 11:05 | HO.NEPHOV_ITS ---
Vital Signs 01/01/25 11:05 Height 5 ft 2 in Weight 185 lb 6 oz BMI 33.9 BP 110/70 Blood Pressure Location Lt brachial Position Sitting Intake Visit Reasons: F/U visit-Conf Bag Loader Required: No Accompanied by: Self / Same As Patient Allergies hydromorphone Allergy (Intermediate, Verified 01/01/25 11:07) Rash acyclovir Allergy (Unknown, Verified 01/01/25 11:07) Unknown insect venom (INSECT BITES) Allergy (Unknown, Verified 01/01/25 11:07) Difficulty Breathing sulfamethoxazole (From BACTRIM) Allergy (Unknown, Verified 01/01/25 11:07) Anaphylaxis trimethoprim (From BACTRIM) Allergy (Unknown, Verified 01/01/25 11:07) Anaphylaxis Penicillins (PCN) Allergy (Verified 01/01/25 11:07) Rash HPI Comments Details: 49 year old with bipolar disorder (was on valproic acid), hypertension and osteoarthritis was seen in follow up for hyponatremia. In the past she had mild hyponatremia with a serum sodium of 125 mmol/L but dropped to 119 mmol/L with mild hyperkalemia at 5.3 mmol/L and was seen in ER. She responded by holding HCTZ and after starting salt tablets and urea. Her sodium improved to 130 and had been stable. She denies weakness or any mentation changes. She is not very strict with fluid restriction.Her BP normalized after 60 pound weight loss. [facility] Medical History (Updated 12/23/24 @ 15:06 by Darlene Aguilar RN) Mild sleep apnea Bipolar I disorder, most recent episode (or current) depressed FH: total knee replacement Hx of migraines Osteoarthritis of lower back Lumbar herniated disc HTN (hypertension) Diabetes Substance dependence, daily use Morbid obesity with BMI of 40.0-44.9, adult Lumbar herniated disc Trigger finger Carpal tunnel syndrome Bowel obstruction Abdominal wall ulcer Hypertension LGSIL on Pap smear of cervix PTSD (post-traumatic stress disorder) Cocaine abuse Baclofen overdose Bipolar 1 disorder, manic, moderate Alcohol abuse Substance abuse Psychiatric diagnosis Hypertension Surgical History History of total knee replacement (TKR) H/O colonoscopy H/O gastric sleeve History of ankle surgery History of carpal tunnel surgery of right wrist Total knee replacement status H/O removal of cyst Gastric bypass status for obesity Hx of tubal ligation History of stress incontinence procedure using tension free vaginal tape History of knee replacement procedure of right knee History of cholecystectomy History of ankle surgery Family History Family/Other Breast cancer Maternal Aunt Cervical cancer Mother Stomach cancer Social History Household Members: Friend(s) and None Household Members Other:: lives by self Housing: Apartment Do you presently have visiting nurse or other home services: Yes (Willie isaac) Alcohol intake: former Comment: Pt's new discharge date is possibly 01/02/25 Patient Tobacco Use Status: Current everyday Tobacco user Tobacco use type: Cigarette Cigarette Packs Per Day: 0.5 Cigarettes Per Day: 10.0 Years Smoked: 34 e-Cigarette/Vaping Use: Currently Using Second Hand Smoke Exposure: No Substance Use Type: Marijuana Advance Directives Date on File: 03/18/21 service: No 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al status: unemployed 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 handed/ [employer] Sexual orientation: Bisexual Female Reproductive History Menstrual Age of Menarche: 16 Review of Systems Const All systems reviewed & are unremarkable except as noted in HPI and below Physical Exam Const General: comfortable and no acute distress Orientation/consciousness: patient oriented x3 HEENT Head: Yes normocephalic Mouth: Normal oral and palatal mucosa present Eyes EOM: EOMs intact bilaterally Neck Neck: Yes supple Resp Auscultation: clear to auscultation bilaterally Cardio Jugular venous distension: no JVD Rate: regular rate GI Palpation (GI): Soft to palpation Auscultation: normal bowel sounds General: Yes no CVA tenderness Back/Spine/Pelvis Back: no CVA tenderness Skin General skin exam: no rashes or lesions noted Neuro General: patient oriented x3 and moves all extremities Extrem General: Yes no pedal edema Results Reviewed Nephrology Results: Hgb, (12.0-16.0) 12.9 g/dl Δ 12/10/24 WBC, (4.8-10.8) 8.5 X10*3/uL 12/10/24 Plt Count, (160-400) 299 X10*3/uL 12/10/24 Sodium, (135-145) 135 mmol/L 12/17/24 Potassium, (3.3-5.1) 3.8 mmol/L 12/17/24 Chloride, (96-108) 107 mmol/L 12/17/24 Carbon Dioxide, (22-29) 21 mmol/L L 12/17/24 BUN, (9-16) 5 mg/dL L 12/10/24 Creatinine, (0.5-1.4) 0.82 mg/dL 12/17/24 Calcium, (8.4-10.2) 9.8 mg/dL 12/10/24 Urine Protein, (Neg-Trace) Negative mg/dL 12/17/24 Assessment & Plan Assessment & Plan (1) Hyponatremia: Code(s): E87.1 - Hypo-osmolality and hyponatremia Category: Medical (2) Hypertension: Code(s): I10 - Essential (primary) hypertension Category: Medical Qualifiers: Hypertension type: primary hypertension Qualified Code(s): I10 - Essential (primary) hypertension Plan H/O Hyponatremia likely multifactorial- resolved No further HCTZ ; C/W fluid restriction for now; K OK Blood pressure at goal. Weight loss; Needs to quit smoking Shall monitor serum Na & renal function closely Shall check cortisol if her BP runs low Answered all questions; F/U given Orders: Orders Electrolytes 6 Months E87.1 - Hypo-osmolality and hyponatremia, I10 - Essential (primary) hypertension Blood Urea Nitrogen 6 Months E87.1 - Hypo-osmolality and hyponatremia, I10 - Essential (primary) hypertension Creatinine 6 Months E87.1 - Hypo-osmolality and hyponatremia, I10 - Essential (primary) hypertension Coding Level of Care Code Est Pt Level 4 (47511) Diagnoses Hyponatremia E87.1 Primary hypertension I10 Hypertension type: primary hypertension
--- OUTSIDE RECORDS SUMMARY | 2025-01-01 13:23 | XMS_ITS | Encounter Summary ---
Author Organization [facility] Address [address] [place] [address] Care Team Providers Care Environmental Adviser Name Role Phone Darya Hamilton MD Primary Care Provider Unava nel [facility], Pcp Primary Care Provider Unavailabl e Darya Hamilton MD Primary Care Provider Unava Lewis Galvan MD Primary Care Provider Un available Dipesh Kern MD Primary Care Provide r Unavailable Becca Hinkle MD Primary Care Provider Unavailable Encounter Details Date Type Department Care Team Description 06/12/2013 Telephone Physiatry - [address] [phone] Lucia Contreras PA-C Social History Tobacco Use [...] unspecified documented in this encounter Care Teams Environmental Adviser Relationship Specialty Start Date End Date Darya Hamilton MD PCP - General 06/30/10 03/15/15 [facility], Pcp PCP - General Internal Medicine 03/16/15 06/20/16 Darya Hamilton MD PCP - General Internal Medicine 06/21/16 11/12/16 Lewis Espino MD PCP - General Internal Medicine 11/13/16 Dipesh Kern MD PCP - General Internal Medicine 10/15/18 [place]Becca Callaway MD PCP - General Internal Medicine 03/23/21 documented as of this encounter
--- OUTSIDE RECORDS SUMMARY | 2025-01-01 13:23 | XMS_ITS | Encounter Summary ---
Author Organization [facility] Address [address] [place] [address] Care Team Providers Care Machine Shop Lead Man Name Role Phone Darya Hamilton MD Primary Care Provider Ronak Beasley, Pcp Primary Care Provider Unavailabl e Darya Hamilton MD Primary Care Provider Lewis Birmingham MD Primary Care Provider Un available Dipesh Kern MD Primary Care Provide r Unavailable Becca Hinkle MD Primary Care Provider Unavailable Encounter Details Date Type Department Care Team Description 10/26/2010 [facility] Medical Records [address] [place] [address] Edilberto Brito MD Social History Tobacco Use [...] filedocumented in this encounter Care Teams Machine Shop Lead Man Relationship Specialty Start Date End Date Darya Hamilton MD PCP - General 06/30/10 03/15/15 [facility], Pcp PCP - General Internal Medicine 03/16/15 06/20/16 Darya Hamilton MD PCP - General Internal Medicine 06/21/16 11/12/16 Lewis Espino MD PCP - General Internal Medicine 11/13/16 Dipesh Kern MD PCP - General Internal Medicine 10/15/18 [place]-Becca Callaway MD PCP - General Internal Medicine 03/23/21 documented as of this encounter
--- OUTSIDE RECORDS SUMMARY | 2025-01-01 13:23 | XMS_ITS | Encounter Summary ---
Author Organization [facility] Address [address] [place] [address] Care Team Providers Care Field Services Director Name Role Phone Darya Hamilton MD Primary [...] Care Team Description 08/17/2011 Telephone Adult Medicine [address] [address] Darya Hamilton MD APPOINTMENT Social History Tobacco [...] filedocumented in this encounter Care Teams Field Services Director Relationship Specialty Start Date End Date Darya Hamilton MD PCP - General 06/30/10 03/15/15 [facility], Pcp PCP - General Internal Medicine 03/16/15 06/20/16 Darya Hamilton MD PCP - General Internal Medicine 06/21/16 11/12/16 Lewis Espino MD PCP - General Internal Medicine 11/13/16 Dipesh Kern MD PCP - General Internal Medicine [facility] - [facility] 03/23/21 documented as of this encounter
--- OUTSIDE RECORDS SUMMARY | 2025-01-01 13:23 | XMS_ITS | Encounter Summary ---
Author Organization [facility] Address [address] [place] [address] Care Team Providers Care Enrollment Clerk Name Role Phone Darya Hamilton MD Primary Care Provider Unanile neumann [facility], Pcp Primary Care Provider Unavailabl e Darya Hamilton MD Primary Care Provider Unava Lewis Galvan MD Primary Care Provider Un available Dipesh Kern MD Primary Care Provide Becca Dunbar MD Primary Care Provider Unavailable Reason for Visit * Reason Onset Date Comments pain, stomach 11/16/2011 Encounter Details Date Type Department Care Team Description 11/16/2011 Telephone Adult Medicine [address] [address] Darya Hamilton MD pain, stomach Social History [...] Pay[place] Plan[place] Product Type: MEDICARE [id number] documented in this encounter Plan of Treatment Not on file documented as of this encounter Visit Diagnoses Not on filedocumented in this encounter Care Teams Enrollment Clerk Relationship Specialty Start Date End Date Darya Hamilton MD PCP - General 06/30/10 03/15/15 [facility], Pcp PCP - General Internal Medicine 03/16/15 06/20/16 Darya Hamilton MD PCP - General Internal Medicine 06/21/16 11/12/16 Lewis Espino MD PCP - General Internal Medicine 11/13/16 Dipesh Kern MD PCP - General Internal Medicine 10/15/18 [place]Becca Callaway MD PCP - General Internal Medicine 03/23/21 documented as of this encounter
--- OUTSIDE RECORDS SUMMARY | 2025-01-01 13:23 | XMS_ITS | Encounter Summary ---
Author Organization [employer] Address [address] [place] [address] [address] [place] [address] Care Team Providers Care [employer] Name Role Phone Maddie Kim MD Primary Care Provider [phone] Encounter Details Date Type Department Care Team ([facility] Contact Info) Description 11/21/2024 Orders Only [facility] [address] [place], [place] [phone] Maddie Kim MD [address] [place] [address] Social History Tobacco Use Types Packs/Day Years [...] documented as of this encounter Care Teams [employer] Relationship Specialty Start Date End Date Maddie Kim MD [address] [place] [phone] PCP - General Family Medicine 07/12/20 Willie Gage 01/17/22 documented as of this encounter
--- OUTSIDE RECORDS SUMMARY | 2025-01-01 13:23 | XMS_ITS | Encounter Summary ---
Author Organization [facility] Address [address] [place] [address] Care Team Providers Care Cardiovascular Radiologic Technologist Name Role Phone Darya Hamilton MD Primary Care Provider Ronak Beasley, Pcp Primary Care Provider Unavailabl e Darya Hamilton MD Primary Care Provider Maryva Lewis Galvan MD Primary Care Provider Un available Dipesh Kern MD Primary Care Provide r Unavailable Becca Hinkle MD Primary Care Provider Unavailable Encounter Details Date Type Department Care Team Description 05/20/2013 Conductor And Engineer Report Medical Records [address] [place] [phone] Karlie Concepcion MD Social History Tobacco Use [...] on filedocumented in this encounter Care Teams Cardiovascular Radiologic Technologist Relationship Specialty Start Date End Date Darya Hamilton MD PCP - General 06/30/10 03/15/15 [facility], Pcp PCP - General Internal Medicine 03/16/15 06/20/16 Darya Hamilton MD PCP - General Internal Medicine 06/21/16 11/12/16 Lewis Espino MD PCP - General Internal Medicine 11/13/16 Dipesh Kern MD PCP - General Internal Medicine 10/15/18 Becca Hinkle MD PCP - General Internal Medicine 03/23/21 documented as of this encounter
--- OUTSIDE RECORDS SUMMARY | 2025-01-01 13:23 | XMS_ITS | Encounter Summary ---
Author Organization [facility] Address [address] [place] [address] Care Team Providers Care Oil Well Logging Engineer Name Role Phone Darya Hamilton MD Primary Care Provider Ronak Beasley, Pcp Primary Care Provider Unavailabl e Darya Hamilton MD Primary Care Provider Lewis Birmingham MD Primary Care Provider Un available Dipesh Kern MD Primary Care Provide r Unavailable Becca Hinkle MD Primary Care Provider Unavailable Encounter Details Date Type Department Care Team Description 01/18/2011 Franchise Broker Report Medical Records [address] [place] [id number] Duane Martinez Social History Tobacco Use Types Packs/Day Years [...] filedocumented in this encounter Care Teams Oil Well Logging Engineer Relationship Specialty Start Date End Date [...]
--- OUTSIDE RECORDS SUMMARY | 2025-01-01 13:24 | XMS_ITS | Encounter Summary ---
Author Organization [facility] Address [address] [place] [address] Care Team Providers Care Crew Dispatcher Name Role Phone Darya Hamilton MD Primary [...] Care Team Description 05/09/2014 Refill General Surgery [address] [place] [phone] Per Wellington MD [address] [place] [address] E-prescribe Rx Request Social History Tobacco Use [...] on filedocumented in this encounter Care Teams Crew Dispatcher Relationship Specialty Start Date End Date Darya Hamilton MD PCP - General 06/30/10 03/15/15 [facility], Pcp PCP - General Internal Medicine 03/16/15 06/20/16 Darya Hamilton MD PCP - General Internal Medicine 06/21/16 11/12/16 Lewis Espino MD PCP - General Internal Medicine 11/13/16 Dipesh Kern MD PCP - General Internal Medicine 10/15/18 [place]-Becca Callaway MD PCP - General Internal Medicine 03/23/21 documented as of this encounter
--- OUTSIDE RECORDS SUMMARY | 2025-01-01 13:24 | XMS_ITS | Encounter Summary ---
Author Organization [facility] Address [address] [place] [address] Care Team Providers Care Flight Line Mechanic Name Role Phone Darya Hamilton MD Primary Care Provider Ronak Beasley, Pcp Primary Care Provider Unavailabl e Darya Hamilton MD Primary Care Provider Lewis Birmingham MD Primary Care Provider Un available Dipesh Kern MD Primary Care Provide r Unavailable Becca Hinkle MD Primary Care Provider Unavailable Encounter Details Date Type Department Care Team Description 10/27/2013 Controlled Substance Plan Medical Records [address] [place] [address] Abstract, Provider Social History Tobacco Use Types [...] on filedocumented in this encounter Care Teams Flight Line Mechanic Relationship Specialty Start Date End Date Darya Hamilton MD PCP - General 06/30/10 03/15/15 [facility], Pcp PCP - General Internal Medicine 03/16/15 06/20/16 Darya Hamilton MD PCP - General Internal Medicine 06/21/16 11/12/16 Lewis Espino MD PCP - General Internal Medicine 11/13/16 Dipesh Kern MD PCP - General Internal Medicine 10/15/18 Becca Hinkle MD PCP - General Internal Medicine 03/23/21 documented as of this encounter
--- OUTSIDE RECORDS SUMMARY | 2025-01-01 13:24 | XMS_ITS | Encounter Summary ---
Author Organization [facility] Address [address] [place] [address] Care Team Providers Care Dental Instructor Name Role Phone Darya Hamilton MD Primary Care Provider Unanile neumann [facility], Pcp Primary Care Provider Unavailabl e Darya Hamilton MD Primary Care Provider Unava Lewis Galvan MD Primary Care Provider Un available Dipesh Kern MD Primary Care Provide r Unavailable Becca Hinkle MD Primary Care Provider Unavailable Reason for Visit * Reason Onset Date Comments Medication 09/11/2013 Encounter Details Date Type Department Care Team Description 09/11/2013 Telephone Adult Medicine [address] [address] Darya Hamilton MD Medication Social History Tobacco [...] The patient Name of the medication ?: [id number] 50-325-40 MG OR TABS (FIORICET, ESGIC) per [...] on filedocumented in this encounter Care Teams Dental Instructor Relationship Specialty Start Date End Date [...]
--- OUTSIDE RECORDS SUMMARY | 2025-01-01 13:24 | XMS_ITS | Encounter Summary ---
Author Organization [facility] Address [address] [place] [address] Care Team Providers Care Measurement Department Chief Clerk Name Role Phone Darya Hamilton MD Primary Care Provider Ronak Beasley, Pcp Primary Care Provider Unavailabl e Darya Hamilton MD Primary Care Provider Lewis Birmingham MD Primary Care Provider Un available Dipesh Kern MD Primary Care Provide r Unavailable Becca Hinkle MD Primary Care Provider Unavailable Encounter Details Date Type Department Care Team Description 05/13/2012 Controlled Substance Contract with [facility] Medical Records [address] [place] [address] Abstract, Provider Social History Tobacco Use Types [...] on filedocumented in this encounter Care Teams Measurement Department Chief Clerk Relationship Specialty Start Date End Date [...]
--- OUTSIDE RECORDS SUMMARY | 2025-01-01 13:24 | XMS_ITS | Encounter Summary ---
Author Organization [facility] Address [address] [place] [address] Care Team Providers Care Editor Managing Director Name Role Phone Darya Hamilton MD Primary Care Provider Ronak Beasley, Pcp Primary Care Provider Unavailabl e Darya Hamilton MD Primary Care Provider Maryva Lewis Galvan MD Primary Care Provider Un available Dipesh Kern MD Primary Care Provide r Unavailable Becca Hinkle MD Primary Care Provider Unavailable Encounter Details Date Type Department Care Team Description 05/21/2014 Project Coach Report Medical Records [address] [place] [address] Tristan Gracia Social History Tobacco Use Types [...] on filedocumented in this encounter Care Teams Editor Managing Director Relationship Specialty Start Date End Date Darya Hamilton MD PCP - General 06/30/10 03/15/15 [facility], Pcp PCP - General Internal Medicine 03/16/15 06/20/16 Darya Hamilton MD PCP - General Internal Medicine 06/21/16 11/12/16 Lewis Espino MD PCP - General Internal Medicine 11/13/16 Dipesh Kern MD PCP - General Internal Medicine 10/15/18 Becca Hinkle MD PCP - General Internal Medicine 03/23/21 documented as of this encounter
--- OUTSIDE RECORDS SUMMARY | 2025-01-01 13:24 | XMS_ITS | Encounter Summary ---
Author Organization [facility] Address [address] [place] [address] Care Team Providers Care Certified Solid Waste Facility Operator Name Role Phone Darya Hamilton MD Primary Care Provider Unava ilable Becca Hinkle MD Primary Care Provider Unavailable [facility], Pcp Primary Care Provider Unavailabl e Darya Hamilton MD Primary Care Provider Unava ilable Lewis Espino MD Primary Care Provider Un available Dipesh Kern MD Primary Care Provide r Unavailable Becca Hinkle MD Primary Care Provider Unavailable Encounter Details Date Type Department Care Team Description 09/27/2009 Night Triage Doc Medical Records [address] [place] [address] Abstract, Provider Social History Tobacco Use Types [...] filedocumented in this encounter Care Teams Certified Solid Waste Facility Operator Relationship Specialty Start Date End Date Darya Hamilton MD PCP - General 06/30/10 03/15/15 Becca Hinkle MD PCP - General 04/22/0806/29 [facility], Pcp PCP - General Internal Medicine 03/16/15 06/20/16 Darya Hamilton MD PCP - General Internal Medicine 06/21/16 11/12/16 Lewis Espino MD PCP - General Internal Medicine 11/13/16 Dipesh Kern MD PCP - General Internal Medicine 10/15/18 [place]-Becca Callaway MD PCP - General Internal Medicine 03/23/21 documented as of this encounter
--- OUTSIDE RECORDS SUMMARY | 2025-01-01 13:24 | XMS_ITS | Encounter Summary ---
Author Organization [employer] Address [address] [place] [address] 7 [place] [address] Care Team Providers Care Tool Polishing Machine Operator Name Role Phone Maddie Kim MD Primary Care Provider [phone] Reason for Visit * Reason Onset Date Comments Medication Question 08/01/2024 Encounter Details Date Type Department Care Team ([facility] Contact Info) Description 08/01/2024 Telephone [facility] MEDICINE [address] [place], [place] [phone] Maddie Kim MD [address] [place], [place] [phone] Medication Question Social History Tobacco Use Types [...] medication. Pt seen today 08/[address] [facility], provider: Jayleen Mckeon. documented in this encounter Plan of Treatment Not on file documented as of this encounter Visit Diagnoses Not on filedocumented in this encounter Additional Health Concerns Assessment Noted Time PHQ-9 Depression Total Score: 9 07/05/19 25 6:48 AM EDT documented as of this encounter Care Teams Tool Polishing Machine Operator Relationship Specialty Start Date End Date Maddie Kim MD [address] [place] [address] PCP - General Family Medicine 07/12/20 Willie Gage 01/17/22 documented as of this encounter
--- OUTSIDE RECORDS SUMMARY | 2025-01-01 13:24 | XMS_ITS | Encounter Summary ---
Author Organization [employer] Address [address] [place] [address] 7t [place] [address] Care Team Providers Care Muleser Name Role Phone Maddie Kim MD Primary Care Provider [phone] Encounter Details Date Type Department Care Team ([facility] st Contact Info) Description 06/13/2024 Orders Only [facility] MEDICINE [address] [place], [place] [phone] Maddie Kim MD [address] [place], [place] [phone] Social History Tobacco Use Types Packs/Day Years [...] documented as of this encounter Care Teams Muleser Relationship Specialty Start Date End Date Maddie Kim MD [address] [place] [address] PCP - General Family Medicine 07/12/20 Willie Gage 01/17/22 documented as of this encounter
--- OUTSIDE RECORDS SUMMARY | 2025-01-01 13:24 | XMS_ITS | Encounter Summary ---
Author Organization [employer] Address [address] [place] [address] 7 [place] [address] Care Team Providers Care Drywall Hanger Name Role Phone Maddie Kim MD Primary Care Provider [phone] Reason for Visit * Reason Onset Date Comments Hospital Follow-up 03/28/2024 Encounter Details Date Type Department Care Team ([facility] Contact Info) Description 03/28/2024 Telephone [facility] MEDICINE [address] [place] [phone] Maddie Kim MD [address] [place], [place] [phone] Hospital Follow-up Social History Tobacco Use Types [...] from pt requesting a HDF appt. Hospital: [facility] Date of admission: 03/24/24 Discharge date: 03/27/24 Diagnosed: Hyponatremia *Send message to [place] [place] Clinical Care Coordinators documented in this encounter Plan of Treatment Not on file documented as of this encounter Visit Diagnoses Not on filedocumented in this encounter Additional Health Concerns Assessment Noted Time PHQ-9 Depression Total Score: 3 06/15/19 24 11:48 AM EDT documented as of this encounter Care Teams Drywall Hanger Relationship Specialty Start Date End Date Maddie Kim MD [address] [place] [address] PCP - General Family Medicine 07/12/20 Willie Gage 01/17/22 documented as of this encounter
--- OUTSIDE RECORDS SUMMARY | 2025-01-01 13:24 | XMS_ITS | Encounter Summary ---
Author Organization [facility] Address [address] [place] [address] Care Team Providers Care Stylist Apprentice Name Role Phone Darya Lopez MD Primary Care Provider Unanile Beasley Pcp Primary Care Provider Unavailabl e Darya Lopez MD Primary Care Provider Unava Lewis Galvan MD Primary Care Provider Un available Dipesh Kern MD Primary Care Provide Becca Dunbar MD Primary Care Provider Unavailable Reason for Visit * Reason Onset Date Comments Orders Call 01/22/2014 Encounter Details Date Type Department Care Team Description 01/22/2014 Telephone Adult Medicine [address] [address] Darya Lopez MD Orders Call Social History [...] 6:50 PM EST MEDICAL RESOURCES [facility] IS FAXING ORDERS TO DR LOPEZ SIGNED AND FAX BACK TO [phone] documented in this encounter Plan of Treatment Not on file documented as of this encounter Visit Diagnoses Not on filedocumented in this encounter Care Teams Stylist Apprentice Relationship Specialty Start Date End Date Darya Lopez MD PCP - General 06/30/10 03/15/15 [facility], Pcp PCP - General Internal Medicine 03/16/15 06/20/16 Darya Lopez MD PCP - General Internal Medicine 06/21/16 11/12/16 Lewis Espino MD PCP - General Internal Medicine 11/13/16 Dipesh Kern MD PCP - General Internal Medicine 10/15/18 [place]-Becca Callaway MD PCP - General Internal Medicine 03/23/21 documented as of this encounter
--- OUTSIDE RECORDS SUMMARY | 2025-01-01 13:24 | XMS_ITS | Encounter Summary ---
Author Organization [facility] Address [address] [place] [address] Care Team Providers Care Odd Shoe Examiner Name Role Phone Darya Hamilton MD Primary Care Provider Unava ilable Becca Hinkle MD Primary Care Provider Unavailable [facility], Pcp Primary Care Provider Unavailabl e Darya Hamilton MD Primary Care Provider Unava ilable Lewsi Espino MD Primary Care Provider Un available Dipesh Kern MD Primary Care Provide r Unavailable Becca Hinkle MD Primary Care Provider Unavailable Encounter Details Date Type Department Care Team Description 03/21/2010 Night Triage Doc Medical Records [address] [place] [address] Abstract, Provider Social History Tobacco Use Types [...] on filedocumented in this encounter Care Teams Odd Shoe Examiner Relationship Specialty Start Date End Date Darya Hamilton MD PCP - General 06/30/10 03/15/15 Becca Hinkle MD PCP - General 04/22/0806/29 [facility], Pcp PCP - General Internal Medicine 03/16/15 06/20/16 Darya Hamilton MD PCP - General Internal Medicine 06/21/16 11/12/16 Lewis Espino MD PCP - General Internal Medicine 11/13/16 Dipesh Kern MD PCP - General Internal Medicine 10/15/18 [place]-Becca Callaway MD PCP - General Internal Medicine 03/23/21 documented as of this encounter
--- OUTSIDE RECORDS SUMMARY | 2025-01-01 13:24 | XMS_ITS | Encounter Summary ---
Author Organization [employer] Address [address] [place] [address] 7 [place] [address] Care Team Providers Care Oil Inspector Name Role Phone Maddie Kim MD Primary Care Provider [phone] Reason for Visit * Reason Onset Date Comments Nurse Triage 05/14/2023 Encounter Details Date Type Department Care Team ([facility] Contact Info) Description 05/14/2023 Telephone [facility] MEDICINE [address] [place], [place] [phone] Maddie Kim MD [address] [place], [place] [phone] Nurse Triage Social History Tobacco Use Types Packs/Day Years Used Date Smoking Tobacco: Former Cigarettes 0.3 25.9 S tarted: 02/19/1999 Passive Smoke Exposure: [...] accepted this outcome Any questions to [facility] [phone] documented in this encounter Plan of Treatment Not on file documented as of this encounter Visit Diagnoses Not on filedocumented in this encounter Additional Health Concerns Assessment Noted Time PHQ-9 Depression Total Score: 0 05/30/19 23 3:26 PM EDT documented as of this encounter Care Teams Oil Inspector Relationship Specialty Start Date End Date Maddie Kim MD [address] [place] [id number] PCP - General Family Medicine 07/12/20 Willie Gage 01/17/22 documented as of this encounter
--- OUTSIDE RECORDS SUMMARY | 2025-01-01 13:24 | XMS_ITS | Encounter Summary ---
Author Organization [employer] Address [address] [place] [address] 7t [place] [address] Care Team Providers Care Sleeping Room Cleaner Name Role Phone Maddie Kim MD Primary Care Provider [phone] Encounter Details Date Type Department Care Team ([facility] st Contact Info) Description 02/22/2024 Orders Only [facility] MEDICINE [address] [place], [place] [phone] Maddie Kim MD [address] [place], [place] [phone] Social History Tobacco Use Types Packs/Day Years [...] documented as of this encounter Care Teams Sleeping Room Cleaner Relationship Specialty Start Date End Date Maddie Kim MD [address] [place] [id number] PCP - General Family Medicine 07/12/20 Willie Gage 01/17/22 documented as of this encounter
--- OUTSIDE RECORDS SUMMARY | 2025-01-01 13:24 | XMS_ITS | Encounter Summary ---
Author Organization [facility] Address [address] [place] [address] Care Team Providers Care Tile Grinder Name Role Phone Darya Hamilton MD Primary [...] 03/12/2010 Night Triage Doc Medical Records [address] [place] [address] Abstract, Provider Social History Tobacco Use Types [...] on filedocumented in this encounter Care Teams Tile Grinder Relationship Specialty Start Date End Date Darya Hamilton MD PCP - General 06/30/10 03/15/15 Becca Hinkle MD PCP - General 04/22/0806/29 [facility], Pcp PCP - General Internal Medicine 03/16/15 06/20/16 Darya Hamilton MD PCP - General Internal Medicine 06/21/16 11/12/16 Lewis Espino MD PCP - General Internal Medicine 11/13/16 Dipesh Kern MD PCP - General Internal Medicine 10/15/18 [place]-Becca Callaway MD PCP - General Internal Medicine 03/23/21 documented as of this encounter
--- OUTSIDE RECORDS SUMMARY | 2025-01-01 13:24 | XMS_ITS | Encounter Summary ---
Author Organization [employer] Address [address] [place] [address] 7t [place] [address] Care Team Providers Care Dough Cutting Machine Operator Name Role Phone Maddie Kim MD Primary Care Provider [phone] Encounter Details Date Type Department Care Team ([facility] st Contact Info) Description 05/15/2023 Orders Only [facility] MEDICINE [address] [place], [place] [phone] Maddie Kim MD [address] [place], [place] [phone] Social History Tobacco Use Types Packs/Day Years [...] documented as of this encounter Care Teams Dough Cutting Machine Operator Relationship Specialty Start Date End Date Maddie Kim MD [address] [place] [id number] PCP - General Family Medicine 07/12/20 Willie Gage 01/17/22 documented as of this encounter
--- OUTSIDE RECORDS SUMMARY | 2025-01-01 13:24 | XMS_ITS | Encounter Summary ---
Author Organization [facility] Address [address] [place] [address] Care Team Providers Care Lead Performance Support Analyst Name Role Phone Darya Hamilton MD Primary Care Provider Ronak Beasley, Pcp Primary Care Provider Unavailabl e Darya Hamilton MD Primary Care Provider Lewis Birmingham MD Primary Care Provider Un available Dipesh Kern MD Primary Care Provide r Unavailable Becca Hinkle MD Primary Care Provider Unavailable Encounter Details Date Type Department Care Team Description 04/03/2012 Release of Information Medical Records [address] [place] [address] Abstract, Provider Social History Tobacco Use Types [...] filedocumented in this encounter Care Teams Lead Performance Support Analyst Relationship Specialty Start Date End Date [...]
--- OUTSIDE RECORDS SUMMARY | 2025-01-01 13:24 | XMS_ITS | Encounter Summary ---
Author Organization [employer] Address [address] [place] [address] 7t [place] [address] Care Team Providers Care Mechatronics Technician Name Role Phone Maddie Kim MD Primary Care Provider [phone] Encounter Details Date Type Department Care Team ([facility] Contact Info) Description 01/02/2024 Orders Only [facility] MEDICINE [address] [place], [place] [phone] Maddie Kim MD [address] [place], [place] [phone] Social History Tobacco Use Types Packs/Day Years [...] documented as of this encounter Care Teams Mechatronics Technician Relationship Specialty Start Date End Date Maddie Kim MD [address] [place] [address] PCP - General Family Medicine 07/12/20 Willie Gage 01/17/22 documented as of this encounter
--- OUTSIDE RECORDS SUMMARY | 2025-01-01 13:24 | XMS_ITS | Encounter Summary ---
Author Organization [employer] Address [address] [place] [address] 7 [place] [address] Care Team Providers Care Solar Electric Installer Name Role Phone Maddie Kim MD Primary Care Provider [phone] Reason for Visit * Reason Onset Date Comments Call Back Request 07/26/2023 Encounter Details Date Type Department Care Team ([facility] Contact Info) Description 07/26/2023 Telephone [facility] MEDICINE [address] [place], [place] [phone] Maddie Kim MD [address] [place], [place] [phone] Call Back Request Social History Tobacco Use Types Packs/Day Years Used Date Smoking Tobacco: Every Day Cigarettes 0.5 25.9 Started: 02/19/1999 Passive Smoke Exposure: Past Smokeless [...] 07/27/2023 9:31 AM EDT Tc returned to [facility], questioning pt.'s risperidone inj rx on med list they received. Looking back in chart, this was discontinued after inpatient hosp in 2020 due to noncompliance with injections. This was the last time it was prescribed. [facility] is requesting this is taken off our med list for accuracy, thank you! * Telephone Encounter - Zach Carlson - 07/26/2023 4:12 PM EDT Tc from [facility] with Willie Gage requesting a call back for a med reconciliation. Please contact Georgie at [phone]. documented in this encounter Plan of Treatment Not on file documented as of this encounter Visit Diagnoses Not on filedocumented in this encounter Additional Health Concerns Assessment Noted Time PHQ-9 Depression Total Score: 3 06/15/19 24 11:48 AM EDT documented as of this encounter Care Teams Solar Electric Installer Relationship Specialty Start Date End Date Maddie Kim MD [address] [place] [id number] PCP - General Family Medicine 07/12/20 Willie Gage 01/17/22 documented as of this encounter
--- OUTSIDE RECORDS SUMMARY | 2025-01-01 13:24 | XMS_ITS | Clinical Summary ---
Author Organization [email or web address] Address [address] [place] [address] 7[address] [place] [address] Care Team Providers Care Heart Surgeon Name Role Phone Maddie Kim MD Primary Care Provider [phone] Allergies Active Allergy Reactions Criticality Noted Date [...] (Inderal) 10 MG tablet 04/11/19 25 Active clindamycin (Cleocin) 300 MG capsule TAKE 2 CAPSULES BY MOUTH 1/2 HOUR PRIOR TO DENTAL APPOINTMENT 09/19/19 25 Active buPROPion SR (Wellbutrin SR) 100 MG 12 hr tablet 09/27/19 25 Active ferrous gluconate (Fergon) 324 (38 Fe) MG tablet Take 1 tablet (324 mg) by mouth with breakfast. 90 tablet 3 10/08/19 25 Active QUEtiapine (SEROquel) 25 MG tablet 10/30/19 25 Active traZODone (Desyrel) 50 MG tablet 11/21/19 25 Active Blood Pressure Monitoring (Blood Pressure Cuff) misc 1 each Once per day. 1 each 12/25/19 25 Active polyethylene glycol, PEG, 3350 (GaviLAX) 17 GM/SCOOP powder Take 17 g by mouth Once per day. 510 g 2 12/25/19 25 Active cholecalcifer ol (Vitamin D-3) 50 MCG (1999) capsuleIndica tions:Vitamin D deficiency Take 1 capsule (50 mcg) by mouth Once per day. 90 capsule 3 12/27/19 25 Active baclofen (Lioresal) 10 MG tabletIndicat ions:Chronic midline low back pain without sciatica Take 1 tablet (10 mg) by mouth if needed in the morning, at noon, and at bedtime for muscle spasms. 90 tablet 12/27/19 25 2024 Active Blood Pressure Monitoring (Omron 3 Series BP Monitor) device USE TO CHECK BLOOD PRESSURE ONCE DAILY 12/25/19 25 Active gabapentin (Neurontin) 800 MG tablet 12/23/19 25 Active prazosin (Minipress) 2 MG capsule 12/30/19 25 Active traZODone (Desyrel) 100 MG tablet 12/30/19 25 Active Tirzepatide-W eight Management (Zepbound) 12.5 MG/0.5ML solution auto-injector Inject 0.5 mL (12.5 mg) under the skin 1 (one) time per week. 2 mL 3 01/01/20 25 Active hydrocortison e 2.5 % cream Apply topically 2 times daily. 28 g 1 01/01/20 25 Active witch james-glyceri n (Tucks) pad Apply topically if needed for irritation. 40 each 1 01/01/20 25 Active cholecalcifer ol (Vitamin D-3) 50 MCG (1999) capsule Take 1 capsule (50 mcg) by mouth Once per day. 90 capsule 3 06/14/19 25 2024 Discontinued(R eorder (will not trigger notification to Pharmacy)) Blood Pressure kit Use as directed to check blood pressure 1 kit 06/17/19 25 2024 Discontinued GaviLAX 17 GM/SCOOP powder DISSOLVE 17 GRAM IN WATER AND TAKE BY MOUTH ONCE DAILY 1-3 TIMES DAILY TO PRODUCE 1 SOFT STOOL DAILY 510 g 2 08/05/19 25 2024 Discontinued(R eorder (will not trigger notification to Pharmacy)) gabapentin (Neurontin) 400 MG capsule Take 1 capsule (400 mg) by mouth every 6 (six) hours. 120 capsule 3 09/09/19 25 2024 Discontinued(T herapy completed) Salicylic Acid 40 % pads Apply 1 Pad topically at bedtime. 30 each 09/09/19 25 2024 Discontinued(T herapy completed) terconazole (Terazol 3) 0.8 % vaginal cream INSERT 1 APPLICATORFUL VAGINALLY BEDTIME FOR 3 DAYS 2024 Discontinued(T herapy completed) baclofen (Lioresal) 10 MG tablet Take 1 tablet (10 mg) by mouth 3 times daily. 90 tablet 10/08/19 25 2024 Discontinued(R eorder (will not trigger notification to Pharmacy)) lisinopril 10 MG tablet TAKE 2 TABLETS (20 MG) BY MOUTH ONCE PER DAY. 60 tablet 11 11/01/192024 Discontinued(T herapy completed) Tirzepatide-W eight Management (Zepbound) 12.5 MG/0.5ML solution auto-injector Inject 0.5 mL (12.5 mg) under the skin 1 (one) time per week. 2 mL 3 11/22/19 25 2024 Discontinued(R eorder (will not trigger notification to Pharmacy)) Tirzepatide-W eight Management (Zepbound) 12.5 MG/0.5ML solution auto-injector Inject 0.5 mL (12.5 mg) under the skin 1 (one) time per week. 2 mL 3 12/25/19 25 2024 Discontinued(R eorder (will not trigger notification to Pharmacy)) Tirzepatide-W eight Management (Zepbound) 12.5 MG/0.5ML solution auto-injector Inject 0.5 mL (12.5 mg) under the skin 1 (one) time per week. 2 mL 3 01/01/20 25 2024 Discontinued(R eorder (will not trigger [...] (02/23/2023 8:52 AM EST): Will refer to [facility] hand surgeon History of gastrectomy 10/06/2022 Assessment & Plan (04/02/2024 4:07 PM EST): 2009 gastric sleeve Assessment & Plan (10/06/2022 7:52 AM EDT): Refer to [facility] weight loss program for discussion of [...] day at 8am. Please write order for medicaid plan compliance director in the morning between 7 and 8 [...] re-iterated that she can reach us through [facility] if she needs anything Assessment & Plan [...] Date Pain in left toe(s) 08/01/2024 09/10/19 Diabetes due to undrl condit ion w oth diabetic neuro comp 04/02/2024 04/02/2024 Allergy 01/27/2022 10/11/2023 Overview (01/27/2022): pcn,dilaudid Alcohol use disorder, modera te, dependence (CMS/HCC) 09/06/2020 02/20/2023 Assessment & Plan (10/06/2022 7:51 [...] sleeve? I think discuss portion sizes with hatchery helper Assessment & Plan (01/29/2022 10:40 AM EST): [...] Encounters Date Type Department Care Team Description 12/31/2024 3:45 PM EST Office Visit [facility] [address] [place] [address] Maddie Kim MD Encounter for immunization; Encounter for vaccination 12/31/2024 Travel 12/30/2024 Telephone [facility] [address] [place] [address] Maddie Kim MD Chart Prep 12/25/2024 Refill [facility] [address] [place] [address] Maddie Kim MD Chronic midline low back pain without sciatica; Vitamin D deficiency 12/25/2024 Refill [facility] [address] [facility] [place] [address] Maddie Kim MD 12/24/2024 Orders Only [facility] [address] [place] [address] Maddie Kim MD 12/24/2024 Refill [facility] [address] [place] [address] Maddie Kim MD 12/23/2024 Patient Outreach [facility] [address] [place] [address] Maddie Kim MD Pre-visit Planning (SDOH screening was completed on 09/08/2024) 12/22/2024 Telephone [facility] [address] [place] [address] Maddie Kim MD 12/11/[address] [address] Kathie Mclean, MAJO NTTS f/up 12/10/2024 Orders Only GENERIC EXTERNAL DATA DEPARTMENT Provider, Generic External Data 11/21/2024 Orders Only [facility] [address] [place] [address] Maddie Kim MD 11/21/[address] [address] Maddie Kim MD Med Refill 11/04/2024 Telephone [facility] [address] [place] [address] Maddie Kim MD Med Refill 10/29/2024 Refill [facility] [address] [place] [address] Maddie Kim MD 10/24/2024 Telephone [facility] [address] [place] [address] Maddie Kim MD Med Refill 10/17/2024 Orders Only [facility] [address] [place] [address] Maddie Kim MD Cervical spine pain (Primary Dx) 10/16/2024 Telephone [facility] [address] [place] [address] Maddie Kim MD Referral 10/14/2024 Telephone [facility] [address] [place] [address] Maddie Kim MD Referral 10/13/2024 Telephone [facility] [address] [place] [address] Maddie Kim MD Care Coordination 10/07/2024 11:30 AM EDT Office Visit [facility] [address] [place] [address] Maddie Kim MD Sciatic pain, right (Primary Dx); Benign hypertension; Class 2 obesity; Acute bilateral low back pain without sciatica; Chronic midline low back pain without sciatica; Acute upper back pain 10/07/2024 Travel 10/06/2024 Telephone [facility] [address] [place] [address] Maddie Kim MD Nurse Triage from Last 3 Months Immunizations Immunization Administration Dates Next Due Influenza Injectable Quadriv alant Preservative Free IIV4 MDCK 01/01/2023 Influenza injectable quadriv alent preservative free 12/26/2021,01/01/2021,02/27/2020 Influenza, IIV3, injectable 01/05/2022,1 03/19/2015,10/13/2014,10/31,03/02/2011,11/01/2009 Influenza, Injectable, MDCK, preservative free 12/11/2023 Influenza, seasonal, injecta ble, preservative free 12/31/2024,10/21/2023 Moderna Covid-19 Vaccine 12+ 08/26/2020,07/30/19 21 Pfizer Covid-19 Vaccine 12+ 12/31/2024 Pfizer Covid-19 Vaccine 12+ Bivalent 12/26/2021 Pneumococcal [...] Mass Index 33.65 12/31/2024 3:46 PM EST Plan of Treatment Health Maintenance Due Date Last Done Comments CT Colonography 1975 Colonoscopy 1975 Colorectal Cancer Screening 1975 FIT DNA/Cologuard 1975 FIT 1975 FOBT 1975 HIV Screening 1975 Sigmoidoscopy 1975 Hepatitis C Screening 10/03/1995 Hepatitis B Vaccines (1 of 3 - 19+ 3-dose series) 1996 DTaP/Tdap/Td Vaccines (3 - Td or Tdap) 09/19/2020 09/19/2010, 10/12/2009 Mammogram 05/03/2025 05/04/2023, 03/23, 02/28/2022 Depression Monitoring 06/30/2025 12/31/2024, 025 Alcohol/Substance Use Screening 07/04/2025 07/04/2024 Disability Screening 09/08/2025 09/08/2024 SDOH Screening 09/08/2025 09/08/2024 Family Planning (PISQ) 09/09/2025 09/09/2024 HPV/Cotest 12/20/2025 12/20/2020, 12/20/2020 Tobacco Screening 12/31/2025 12/31/2024 Cervical Cancer Screening 01/21/2027 Pap Smear 01/21/2027 01/22/2024, 08/20, 12/20/2020 Zoster Vaccines (1 of 2) 10/03/2027 Lipid Panel 09/07/2028 09/08/2023 RSV Patients and Patients Aged 60 years or older (1 - 1-dose 75+ series) 2052 Pneumococcal Vaccine: Pediatrics (0 to 5 Years) and At-Risk Patients (6 to 49) Years Aged Out 05/26/2015 No longer eligible based on patient's age to complete this topic COVID-19 Vaccine Completed 12/31/2024, 08/2021, 08/26/2020, Additional history exists Influenza Vaccine Completed 12/31/2024, , 10/21/2023, Additional history exists HIB Vaccines Aged Out [...] (12/10/2024 2:54 AM EDT) Color Urine Yellow [facility] Appearance Urine Clear [facility] PH 6.5 5.0 - 9.0 [facility] Glucose Urine UA Negative Negative mg/dL [facility] Urine Blood Negative Negative [facility] Specific Labolt - Urine <=1.005 1.005 - 1.025 [facility] Urine Protein Negative Neg-Trace mg/dL [facility] Urine Ketones Negative Negative mg/dL [facility] Nitrite Urine Negative Negative [facility] Leukocyte Esterase Urine Negative Negative [facility] RBC Urine 0-2 0 - 2 /HPF [facility] Urine WBC 0-5 0 - 5 /HPF [facility] Urine Squamous Epithelial Cell 0-2 0 - 2 /HPF [facility] Urine Bacteria None Seen None Seen [facility] Hyaline Casts, Urine 0-2 0 - 2 /LPF [facility] 12/10/2024 2:54 AM EDT 12/10/2024 3:00 AM EDT Narrative [facility] - 12/10/2024 3:21 AM EDT [id number], [employer] us Generic External Data Provider LAB URINE ORDERAB LES Final Result [facility] [address] [place] [address] [phone] * (ABNORMAL) Drug Monitoring, Panel 1, Screen, Urine (12/10/2024 2:54 AM EDT) Opiate Screen Urine Not Detected Not Detect [facility] Comment:Opiate cut-off is 30 0 ng/mL.Positive results are unconfirmed and should not be used fornon-medical purposes. Barbiturates, Urine Not Detected Not Detect [facility] Comment:Barbiturate cut-off is 200 ng/mL.Positive results are unconfirmed and should not be used fornon-medical purposes. Phencyclidine Screen Urine Not Detected Not Detect [facility] Comment:Phencyclidine cut-of f is 25 ng/mL.Positive results are unconfirmed and should not be used fornon-medical purposes. Amphetamine Screen Urine Not Detected Not Detect [facility] Comment:Amphetamine cut-off is 1000 ng/mL.Positive results are unconfirmed and should not be used fornon-medical purposes. Benzodiazepines Screen Urine Not Detected Not Detect [facility] Comment:Benzodiazepine cut-o ff is 200 ng/mL.Positive results are unconfirmed and should not be used fornon-medical purposes. Cocaine Screen Urine Not Detected Not Detect [facility] Comment:Cocaine cut-off is 3 00 ng/mL.Positive results are unconfirmed and should not be used fornon-medical purposes. Cannabinoid Screen Urine POSITIVE(A) Not Detect [facility] Comment:Cannabinoid cut-off is 50 ng/mL.Positive results are unconfirmed and should not be used fornon-medical purposes. Methadone Screen, Urine Not Detected Not Detect ng/mL [facility] Comment:Methadone cut-off is 300 ng/mL.Positive results are unconfirmed and should not be used fornon-medical purposes. FENTANYL URINE Not Detected Not Detect [facility] Comment:Fentanyl cut-off is 1 ng/mL.Positive results are unconfirmed and should not be used fornon-medical purposes. Oxycodone Urine Screen Not Detected Not Detect ng/mL [facility] Comment:Oxycodone cut-off is 100 ng/mL.Positive results are unconfirmed and should not be used fornon-medical purposes. Buprenorphine Screen Not Detected Not Detect ng/mL [facility] Comment:Buprenorphine cut-of f is 5 ng/mL.Positive results are unconfirmed and should not be used fornon-medical purposes. 12/10/2024 2:54 AM EDT 12/10/2024 3:00 AM EDT us Generic External Data Provider LAB URINE ORDERAB LES Final Result [facility] [address] [place] [address] [phone] * (ABNORMAL) CBC auto differential (12/10/2024 2:53 AM EDT) White Blood Count 8.5 4.8 - 10.8 X10*3/uL [facility] Red Blood Count 5.24 4.20 - 5.50 X10*6/uL [facility] Hemoglobin 12.9 12.0 - 16.0 g/dl [facility] Hematocrit 40.0 37.0 - 47.0 % [facility] Mean Corpuscular Volume 76.3(L) 80.0 - 98.0 fL [facility] Mean Corpuscular Hemoglobin 24.6(L) 27.0 - 33.0 pg [facility] Mean Corpuscular HGB Conc 32.3 31.0 - 35.0 g/dl [facility] Red Cell Distribution Width 12.9 11.0 - 16.0 % [facility] Platelet Count 299 160 - 400 X10*3/uL [facility] Mean Platelet Volume 10.1 9.4 - 12.3 fL [facility] Neutrophils Percent Auto 61.9 45 - 73 % [facility] Imm Gran Pct Auto 0.2 0.0 - 0.4 % [facility] Lymphocytes Percent Auto 26.2 20 - 40 % [facility] Monocytes Percent Auto 8.6 2 - 11 % [facility] Eosinophils Percent Auto 2.6 0 - 4 % [facility] Basophils Percent Auto 0.5 0 - 2 % [facility] NRBC Pct Auto 0.0 0.0 - 0.2 /100WBC [facility] Neutrophils Absolute Auto 5.3 2.0 - 8.3 x10*3/uL [facility] Imm Gran Abs Auto 0.02 0.00 - 0.03 X10*3/uL [facility] Lymphocytes Absolute Auto 2.2 1.2 - 4.9 X10*3/uL [facility] Monocytes Absolute Auto 0.7 0.1 - 1.2 X10*3/uL [facility] Eosinophils Absolute Auto 0.2 0.0 - 0.4 X10*3/uL [facility] Basophils Absolute Auto 0.0 0.0 - 0.2 X10*3/uL [facility] NRBC Abs Auto 0.000 0.0 - 0.012 X10*3/uL [facility] 12/10/2024 2:53 AM EDT 12/10/2024 3:00 AM EDT us Generic External Data Provider LAB BLOOD ORDERAB LES Final Result [facility] [address] [place] [phone] * Pap Smear (01/22/2024 8:03 AM EST) 01/22/2024 8:03 AM EST 01/23/2024 11:00 AM EST Narrative [facility] - 01/25/2024 12:58 PM EST ----- ------- Name: Atiya Esparza Age/Sex: 48/F : 1975 Unit#: [id number] Attend Dr: John Schmidt MD Re01/22/24 Status: DEP REF Location: HO.LNP Disch: ----- ------- SPEC : [id number] RECD: 01/23/24 STATUS: MEHRDAD GREGG NUM: [id number] MAMADOU: 01/22/[address] [facility] [address]: John Schmidt MD ENTERED: 01/23/24-1119 SP TYPE: Pap Smr OTHR DR: Maddie [...] HPV cervical Material Received ThinPrep-Cervical Copies To: Maddei Kim [address] [place] [address] John Schmidt MD [facility] [address] [place] [address] ----- ------- Signed (signature on file) YASSINE Garcia (ASCP) 01/25/24 1258 ----- ------- END OF REPORT us Generic External Data Provider LAB CYTOLOGY HARJEET AVALOS Final Result [facility] [address] [place] [address] [phone] * Lipid Panel, Standard (09/08/2023 8:43 AM EDT) Triglycerides 57 <150 mg/dL [facility] Comment:Desirable Triglyceri de: less than 150 mg/dLBorderline High Triglyceride 150-199 mg/dLHigh Triglyceride: 200-499 mg/dLVery High Triglyceride: greater than or equal to 5OO mg/dL Cholesterol 158 <200 mg/dL [facility] Comment:Desirable Cholestero l: less than 200 mg/dLBorderline High Cholesterol: 200-239 mg/dLHigh Cholesterol: greater than 239 mg/dL LDL Cholesterol Calculated 87 <100 mg/dL [facility] Comment:Desirable LDL: less than 100 mg/dLNear Optimal/Above Optimal LDL: 110- 129 mg/dLBorderline High LDL: 130-159 mg/dLHigh LDL: 160-189 mg/dLVery High LDL: greater than or equal to 190 mg/dL HDL Cholesterol 60 >40 mg/dL [facility] Comment:Desirable HDL: great er than 40 mg/dL Note: This HDL assay may give artificially low results in patients with liver disease. Blood Venous blood specimen / Unknown 09/08/2023 8:43 AM EDT 09/08/2023 11:09 AM EDT Maddie Kim MD LAB BLOOD ORDERABLES Final Res ult [facility] [address] [place] [address] [phone] * BI Mammogram Screening Tomosynthesis Bilateral (05/04/2023 4:02 PM EDT) Anatomical Region Laterality Modality Breast Bilateral Mammography 05/04/2023 4:02 PM EDT Narrative 05/26/2023 3:06 PM EDT [facility] [address] [place] [address] Mammography Report Signed Patient: Atiya Esparza MR#: [id number] : 1975 Acct:[id number] Age/Sex: 47 / F ADM Date: 05/04/23 Loc: MAMMO Attending Dr: Maddie Kim MD Ordering Physician: Maddie Kim Results: 1Negative Date of Service: 05/04/23 Follow Up: 1 Year From Orig [facility] Mammogram Procedure(s): MM tomosynthesis screening BI Accession Number(s): [id number] cc: Maddie Kim EXAMINATION: MM SCREENING DIGITAL [...] in OV> 05/26/23 1503 DD/ 1602 TD/TT: Baggage Clerk: Procedure Note Donotuseinterpreter, Image - 05/26/2023 [facility] [address] [place] [address] Mammography Report Signed Patient: Zain Esparza#: [id number] : 1975Acct:[id number] Age/Sex: 47 / FADM Date: 05/04/23 Loc: MICHA[facility] Attending Dr: Maddie Kim MD Ordering Physician: Jaja Kimults: 1Negative Date of Service: 05/04/23Follow Up: 1 Year From [facility] Mammogram Procedure(s): MM tomosynthesis screening BI Accession Number(s): [id number] cc: Maddie Kim EXAMINATION: MM SCREENING DIGITAL [...] in OV> 05/26/23 1503 DD/ 1602 TD/TT: Baggage Clerk: Maddie Kim MD [facility] [place] PROCEDURES Final Result * HPV GENOTYPES 16,18/45 (12/20/2020 12:00 AM EDT) HPV 16 RNA NOT DETECTED NOT DETECTED [facility] HPV 18/45 RNA NOT DETECTED NOT DETECTED [facility] Comment: Methodology: [employer] Bi Administrator Mediated Amplification The analytical performance characteristics of this assay have been determined by [employer]. The modifications have not been cleared or approved by the FDA. This assay has been validated pursuant to the CLIA regulations and is used for clinical purposes. 12/20/2020 Maddie Kim MD LAB CYTOLOGY ORDERABLES Final Result [facility] [address] from Last 3 Months or Most Recently Relevant to Health Maintenance Insurance [facility] < 65 [place] [id number] Care Teams Heart Surgeon Relationship Specialty Start Date End Date Maddie Kim MD [address] [place] [phone] PCP - General Family Medicine 07/12/20 Willie Caring 01/17/22
--- OUTSIDE RECORDS SUMMARY | 2025-01-01 13:24 | XMS_ITS | Encounter Summary ---
Author Organization [facility] Address [address] [place] [address] Care Team Providers Care Embedded Linux Engineer Name Role Phone Darya [place] MD Primary Care Provider Unanile Beasley, Pcp Primary Care Provider Unavailabl e Darya [place] MD Primary Care Provider Unava Lewis Galvan MD Primary Care Provider Un available Dipesh Kern MD Primary Care Provide r Unavailable Becca Hinkle MD Primary Care Provider Unavailable Encounter Details Date Type Department Care Team Description 04/23/2012 Casino Operations Supervisor Report Medical Records [address] [place] [phone] Karlie Concepcion MD Social History Tobacco Use [...] on filedocumented in this encounter Care Teams Embedded Linux Engineer Relationship Specialty Start Date End Date Darya [place] MD PCP - General 06/30/10 03/15/15 [facility], Pcp PCP - General Internal Medicine 03/16/15 06/20/16 Darya [place] MD PCP - General Internal Medicine 06/21/16 11/12/16 Lewis Espino MD PCP - General Internal Medicine 11/13/16 Dipesh Kern MD PCP - General Internal Medicine 10/15/18 Becca Hinkle, MD PCP - General Internal Medicine 03/23/21 documented as of this encounter
--- OUTSIDE RECORDS SUMMARY | 2025-01-01 13:24 | XMS_ITS | Encounter Summary ---
Author Organization [employer] Address [address] [place] [address] 7 [place] [address] Care Team Providers Care Gauge And Weigh Machine Operator Name Role Phone Maddie Kim MD Primary Care Provider [phone] Reason for Visit * Reason Onset Date Comments New Med Request 06/13/2024 Encounter Details Date Type Department Care Team ([facility] Contact Info) Description 06/13/2024 Telephone [facility] [address] [place], [place] [phone] Maddie Kim MD [address] [place], [place] [phone] New Med Request Social History Tobacco Use [...] EDT TC placed to Lauren (Visiting Nurse) [phone] regarding below message. Lauren informed RN that [...] Vitamin D-3 If any questions please contact [phone] documented in this encounter Plan of Treatment Not on file documented as of this encounter Visit Diagnoses Not on filedocumented in this encounter Additional Health Concerns Assessment Noted Time PHQ-9 Depression Total Score: 3 06/15/19 24 11:48 AM EDT documented as of this encounter Care Teams Gauge And Weigh Machine Operator Relationship Specialty Start Date End Date Maddie Kim MD [address] [place] [address] PCP - General Family Medicine 07/12/20 Willie Gage 01/17/22 documented as of this encounter
--- OUTSIDE RECORDS SUMMARY | 2025-01-01 13:24 | XMS_ITS | Encounter Summary ---
Author Organization [employer] Address [address] [place] [address] [address] [place] [address] Care Team Providers Care Warp Tension Tester Name Role Phone Maddie Kim MD Primary Care Provider [phone] Reason for Visit * Reason Onset Date Comments FYI 02/15/2024 Encounter Details Date Type Department Care Team ([facility] Contact Info) Description 02/15/2024 Telephone [facility] [address] [place], [place] [phone] Maddie Kim MD [address] [place], [place] [phone] FY Social History Tobacco Use Types Packs/Day [...] any questions you can contact Lauren at [phone]. documented in this encounter Plan of Treatment Not on file documented as of this encounter Visit Diagnoses Not on filedocumented in this encounter Additional Health Concerns Assessment Noted Time PHQ-9 Depression Total Score: 3 06/15/19 24 11:48 AM EDT documented as of this encounter Care Teams Warp Tension Tester Relationship Specialty Start Date End Date Maddie Kim MD [address] [place] [phone] PCP - General Family Medicine 07/12/20 Willie Gage 01/17/22 documented as of this encounter
--- OUTSIDE RECORDS SUMMARY | 2025-01-01 13:24 | XMS_ITS | Encounter Summary ---
Author Organization [employer] Address [address] [place] [address] 7 [place] [address] Care Team Providers Care Setter Molding And Coremaking Machines Name Role Phone Maddie Kim MD Primary Care Provider [phone] Reason for Visit * Reason Onset Date Comments Prior Authorization 05/19/2024 Encounter Details Date Type Department Care Team ([facility] Contact Info) Description 05/19/2024 Telephone [facility] MEDICINE [address] [place] [address] [phone] Maddie Kim MD 230 [place], [place] [phone] Prior Authorization Social History Tobacco Use Types [...] Tirzepatide-Weight Management (Zepbound) 2.5 MG/0.5ML solution auto-injector. Financial Adviser advise pt 7-14 business days. Pt verbalized [...] re fax it over. Contact pt at [phone] documented in this encounter Plan of Treatment Not on file documented as of this encounter Visit Diagnoses Not on filedocumented in this encounter Additional Health Concerns Assessment Noted Time PHQ-9 Depression Total Score: 3 06/15/19 24 11:48 AM EDT documented as of this encounter Care Teams Setter Molding And Coremaking Machines Relationship Specialty Start Date End Date Maddie Kim MD [address] [place] [address] PCP - General Family Medicine 07/12/20 [place] Gage 01/17/22 documented as of this encounter
--- OUTSIDE RECORDS SUMMARY | 2025-01-01 13:24 | XMS_ITS | Encounter Summary ---
Author Organization [employer] Address [address] [place] [address] 7t [place] [address] Care Team Providers Care Toolroom Helper Name Role Phone Maddie Kim MD Primary Care Provider [phone] Encounter Details Date Type Department Care Team ([facility] st Contact Info) Description 06/13/2023 Orders Only [facility] MEDICINE 230 [place], [place] [phone] Maddie Kim MD 230 [place], [place] [phone] Social History Tobacco Use Types Packs/Day Years [...] 11:48 AM EDT Ashlyn Meza MA * How difficult have these problems made it for you to do your work, take care of things at home, or get along with other people? Answer Date of Assessment Author Not difficult at all 06/15/2023 11:48 AM EDT Ruth Barreto MA * Over the past 2 weeks, [...] down Not at all 06/15/2023 11:48 AM EDT Ashlyn Meza MA Trouble concentrating on things, such as reading the newspaper or watching television Not at all 06/15/2023 11:48 AM EDT Ashlyn Meza MA Moving or speaking so [...] Health Questionnaire-9 Score 3 06/15/2023 11:48 AM ELIOT Magnolia Meza MA documented as of this encounter Plan of Treatment Not on file documented as of this encounter Visit Diagnoses Not on filedocumented in this encounter Additional Health Concerns Assessment Noted Time PHQ-9 Depression Total Score: 0 05/30/19 23 3:26 PM EDT documented as of this encounter Care Teams Toolroom Helper Relationship Specialty Start Date End Date Maddie Kim MD 230 [place] [address] PCP - General Family Medicine 07/12/20 [place] Gage 01/17/22 documented as of this encounter
--- OUTSIDE RECORDS SUMMARY | 2025-01-01 13:24 | XMS_ITS | Encounter Summary ---
Author Organization [employer] Address [address] [place] [address] 7t [place] [address] Care Team Providers Care Alcohol Rubber Name Role Phone Maddie Kim MD Primary Care Provider Reason for Visit * Reason Onset Date Comments Nutrition Medication Question 05/30/2023 Encounter Details Date Type Department Care Team ([facility] Contact Info) Description 05/30/2023 Telephone [facility] MEDICINE 230 [place], [place] [phone] Maddie Kim MD 230 [place], [place] [phone] Nutrition Medication Question Social History Tobacco Use [...] documented as of this encounter Care Teams Alcohol Rubber Relationship Specialty Start Date End Date Maddie Kim MD 230 [place] [address] PCP - General Family Medicine 07/12/20 [place] Gage 01/17/22 documented as of this encounter
--- OUTSIDE RECORDS SUMMARY | 2025-01-01 13:24 | XMS_ITS | Encounter Summary ---
Author Organization [employer] Address [address] [place] [address] 7t [place] [address] Care Team Providers Care Team Facilitator Name Role Phone Maddie Kim MD Primary Care Provider [phone] Encounter Details Date Type Department Care Team ([facility] st Contact Info) Description 07/29/2023 Orders Only [facility] MEDICINE 230 [place], [place] [phone] Maddie Kim MD [address] [place], [place] [phone] Social History Tobacco Use Types Packs/Day Years [...] documented as of this encounter Care Teams Team Facilitator Relationship Specialty Start Date End Date Maddie Kim MD [address] [place] [address] PCP - General Family Medicine 07/12/20 [place] Gage 01/17/22 documented as of this encounter
--- OUTSIDE RECORDS SUMMARY | 2025-01-01 13:24 | XMS_ITS | Encounter Summary ---
Author Organization [employer] Address [address] [place] [address] 7t [place] [address] Care Team Providers Care Medical Hospital Sales Name Role Phone Maddie Kim MD Primary Care Provider [phone] Encounter Details Date Type Department Care Team ([facility] Contact Info) Description 08/10/2024 Orders Only [facility] MEDICINE 230 [place], [place] [phone] Maddie Kim MD 230 [place], [place] [phone] Social History Tobacco Use Types Packs/Day Years [...] as of this encounter Care Teams Medical Hospital Sales Relationship Specialty Start Date End Date Maddie Kim MD 230 [place] [address] PCP - General Family Medicine 07/12/20 [place] Gage 01/17/22 documented as of this encounter
--- OUTSIDE RECORDS SUMMARY | 2025-01-01 13:24 | XMS_ITS | Encounter Summary ---
Author Organization [facility] Address [address] [place] [address] Care Team Providers Care Assistant Professor Of Theater Name Role Phone Darya Hamilton MD Primary [...] Team Description 10/13/2009 Business Doc Medical Records [address] [place] [address] Abstract, Provider Social History Tobacco Use Types [...] filedocumented in this encounter Care Teams Assistant Professor Of Theater Relationship Specialty Start Date End Date Darya Hamilton MD PCP - General 06/30/10 03/15/15 Becca Hinkle MD PCP - General 04/22/0806/29 [facility], Pcp PCP - General Internal Medicine 03/16/15 06/20/16 Darya Hamilton MD PCP - General Internal Medicine 06/21/16 11/12/16 [place] Espino MD PCP - General Internal Medicine 11/13/16 Dipesh Kern MD PCP - General Internal Medicine 10/15/18 [place]-Becca Callaway MD PCP - General Internal Medicine 03/23/21 documented as of this encounter
--- OUTSIDE RECORDS SUMMARY | 2025-01-01 13:25 | XMS_ITS | Encounter Summary ---
Author Organization [employer] Address [address] [place] [address] 7t [place] [address] Care Team Providers Care American History Teacher Name Role Phone Maddie Kim MD Primary Care Provider [phone] Reason for Visit * Reason Onset Date Comments Med Refill 05/10/2023 Encounter Details Date Type Department Care Team ([facility] st Contact Info) Description 05/10/2023 Refill [facility] MEDICINE 230 [place], [place] [phone] Maddie Kim MD 230 [place], [place] [phone] Chronic bilateral low back pain without sciatica [...] documented as of this encounter Care Teams American History Teacher Relationship Specialty Start Date End Date Maddie Kim MD 230 [place] [address] PCP - General Family Medicine 07/12/20 Willie Gage 01/17/22 documented as of this encounter
--- OUTSIDE RECORDS SUMMARY | 2025-01-01 13:25 | XMS_ITS | Encounter Summary ---
Author Organization [employer] Address [address] [place] [address] 7 [place] [address] Care Team Providers Care Education And Training Coordinator Name Role Phone Maddie Kim MD Primary Care Provider [phone] Encounter Details Date Type Department Care Team (Late st Contact Info) Description 04/11/2022 Abstract [facility] MEDICINE 230 [place] [address] Maddie Kim MD 230 [place] [address] Social History Tobacco Use Types Packs/Day Years Used Date Smoking Tobacco: Every Day Cigarettes 0.3 25.9 Started: 02/19/1999 Smokeless Tobacco: Never Alcohol Use [...] on filedocumented in this encounter Care Teams Education And Training Coordinator Relationship Specialty Start Date End Date Maddie Kim MD 230 [place] [address] PCP - General Family Medicine 07/12/20 Willie Gage 01/17/22 documented as of this encounter
--- OUTSIDE RECORDS SUMMARY | 2025-01-01 13:25 | XMS_ITS | Encounter Summary ---
Author Organization [employer] Address [address] [place] [address] 7 [place] [address] Care Team Providers Care Senior Warehouse Clerk Name Role Phone Maddie Kim MD Primary Care Provider [phone] Reason for Visit * Reason Onset Date Comments Referral 05/05/2024 Encounter Details Date Type Department Care Team ([facility] Contact Info) Description 05/05/2024 Telephone [facility] MEDICINE 230 [place], [place] [phone] Maddie Kim MD 230 [place], [place] [phone] Referral Social History Tobacco Use Types Packs/Day [...] 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
--- OUTSIDE RECORDS SUMMARY | 2025-01-01 13:25 | XMS_ITS | Encounter Summary ---
Author Organization [employer] Address [address] [place] [address] 7 [place] [address] Care Team Providers Care Juvenile Court Judge Name Role Phone Maddie Kim MD Primary Care Provider [phone] Encounter Details Date Type Department Care Team ([facility] st Contact Info) Description 07/05/2022 Orders Only [facility] MEDICINE 230 [place], [place] [phone] Maddie Kim MD 230 [place], [place] [phone] Social History Tobacco Use Types Packs/Day Years [...] documented as of this encounter Care Teams Juvenile Court Judge Relationship Specialty Start Date End Date Maddie Kim MD [address] [place] [address] PCP - General Family Medicine 07/12/20 Willie Gage 01/17/22 documented as of this encounter
--- OUTSIDE RECORDS SUMMARY | 2025-01-01 13:25 | XMS_ITS | Encounter Summary ---
Author Organization [employer] Address [address] [place] [address] 7t [place] [address] Care Team Providers Care Loaf Counter Name Role Phone Maddie Kim MD Primary Care Provider Encounter Details Date Type Department Care Team ([facility] Contact Info) Description 12/24/2024 Orders Only [facility] MEDICINE 230 [place], [place] [phone] Maddie Kim MD 230 [place] [address] Social History Tobacco Use Types Packs/Day Years [...] documented as of this encounter Care Teams Loaf Counter Relationship Specialty Start Date End Date Maddie Kim MD [address] [place] [address] PCP - General Family Medicine 07/12/20 [place] Gage 01/17/22 documented as of this encounter
--- OUTSIDE RECORDS SUMMARY | 2025-01-01 13:25 | XMS_ITS | Encounter Summary ---
Author Organization [facility] Address [address] [place] [address] Care Team Providers Care Plant Equipment Engineer Name Role Phone Darya Hamilton MD Primary Care Provider Ronak Beasley, Pcp Primary Care Provider Unavailabl e Darya Hamilton MD Primary Care Provider [place] MD Primary Care Provider Un available Dipesh Kern MD Primary Care Provide r Unavailable Becca Hinkle MD Primary Care Provider Unavailable Encounter Details Date Type Department Care Team Description 09/11/2012 [facility] Medical Records [address] [place] [address] Kin Funes MD Social History Tobacco Use [...] on filedocumented in this encounter Care Teams Plant Equipment Engineer Relationship Specialty Start Date End Date Darya Hamilton MD PCP - General 06/30/10 03/15/15 [facility], Pcp PCP - General Internal Medicine 03/16/15 06/20/16 Darya Hamilton MD PCP - General Internal Medicine 06/21/16 11/12/16 [place] Espino MD PCP - General Internal Medicine 11/13/16 Dipesh Kern MD PCP - General Internal Medicine 10/15/18 [place]-Becca Callaway MD PCP - General Internal Medicine 03/23/21 documented as of this encounter
--- OUTSIDE RECORDS SUMMARY | 2025-01-01 13:25 | XMS_ITS | Encounter Summary ---
Author Organization [facility] Address [address] [place] [address] Care Team Providers Care Special Agent Name Role Phone Darya Hamilton MD Primary Care Provider Ronak Beasley, Pcp Primary Care Provider Unavailabl e Darya Hamilton MD Primary Care Provider [place] MD Primary Care Provider Un available Dipesh Kern MD Primary Care Provide r Unavailable Becca Hinkle MD Primary Care Provider Unavailable Encounter Details Date Type Department Care Team Description 09/17/2012 [facility] Medical Records [address] [place] [address] Kin Funes MD Social History Tobacco Use [...] on filedocumented in this encounter Care Teams Special Agent Relationship Specialty Start Date End Date Darya Hamilton MD PCP - General 06/30/10 03/15/15 [facility], Pcp PCP - General Internal Medicine 03/16/15 06/20/16 Darya Hamilton MD PCP - General Internal Medicine 06/21/16 11/12/16 [place] Espino MD PCP - General Internal Medicine 11/13/16 Dipesh Kern MD PCP - General Internal Medicine 10/15/18 [place]-Becca Callaway MD PCP - General Internal Medicine 03/23/21 documented as of this encounter
--- OUTSIDE RECORDS SUMMARY | 2025-01-01 13:25 | XMS_ITS | Encounter Summary ---
Author Organization [employer] Address [address] [place] [address] 7t [place] [address] Care Team Providers Care Exhaust Emissions Inspector Name Role Phone Maddie Kim MD Primary Care Provider [phone] Reason for Visit * Reason Onset Date Comments Med Refill 04/12/2023 Encounter Details Date Type Department Care Team ([facility] st Contact Info) Description 04/12/2023 Refill [facility] MEDICINE 230 [place], [place] [phone] Maddie Kim MD 230 [place], [place] [phone] Chronic bilateral low back pain without sciatica [...] documented as of this encounter Care Teams Exhaust Emissions Inspector Relationship Specialty Start Date End Date Maddie Kim MD [address] [place] [address] PCP - General Family Medicine 07/12/20 [place] Gage 01/17/22 documented as of this encounter
--- OUTSIDE RECORDS SUMMARY | 2025-01-01 13:25 | XMS_ITS | Encounter Summary ---
Author Organization [employer] Address [address] [facility] 7t [place] [address] Care Team Providers Care Chief Port Director Name Role Phone Maddie Kim MD Primary Care Provider Reason for Visit * Reason Onset Date Comments Med Refill 04/04/2023 Encounter Details Date Type Department Care Team ([facility] Contact Info) Description 04/04/2023 Refill [facility] [address] [place] [address] [phone] Isac Gonzalez MD 230 [place], [place] [phone] Chronic bilateral low back pain without sciatica [...] as of this encounter Care Teams Chief Port Director Relationship Specialty Start Date End Date Maddie Kim MD [address] [place] [address] PCP - General Family Medicine 07/12/20 [place] Gage 01/17/22 documented as of this encounter
--- OUTSIDE RECORDS SUMMARY | 2025-01-01 13:25 | XMS_ITS | Encounter Summary ---
Author Organization [employer] Address [address] [facility] 7t [place] [address] Care Team Providers Care Technology Support Analyst Name Role Phone Maddie Kim MD Primary Care Provider [phone] Reason for Visit * Reason Onset Date Comments Med Refill 02/14/2023 Encounter Details Date Type Department Care Team ([facility] Contact Info) Description 02/14/2023 Refill [facility] [address] [place] [address] [phone] Maddie Kim MD 230 [place], [place] [phone] Social History Tobacco Use Types Packs/Day Years [...] documented as of this encounter Care Teams Technology Support Analyst Relationship Specialty Start Date End Date Maddie Kim MD [address] [place] [address] PCP - General Family Medicine 07/12/20 [place] Gage 01/17/22 documented as of this encounter
--- OUTSIDE RECORDS SUMMARY | 2025-01-01 13:25 | XMS_ITS | Encounter Summary ---
Author Organization [facility] Address [address] [place] [address] Care Team Providers Care Dolly Pusher Name Role Phone Community, Pcp Primary Care Provider UnavailDarya Ness MD Primary Care Provider Unava [place] Galvan MD Primary Care Provider Un available Dipesh Kern MD Primary Care Provide r Unavailable Becca Hinkle MD Primary Care Provider Unavailable Encounter Details Date Type Department Care Team Description 12/03/2015 Release of Information Medical Records [address] [place] [id number] Abstract, Provider Social History Tobacco Use Types [...] on filedocumented in this encounter Care Teams Dolly Pusher Relationship Specialty Start Date End Date Community, Pcp PCP - General Internal Medicine 03/16/15 06/20/16 Darya [place]aiml[place] MD PCP - General Internal Medicine 06/21/16 11/12/16 [place] Espino MD PCP - General Internal Medicine 11/13/16 Dipesh Kern MD PCP - General Internal Medicine 10/15/18 Becca Hinkle MD PCP - General Internal Medicine 03/23/21 documented as of this encounter
--- OUTSIDE RECORDS SUMMARY | 2025-01-01 13:25 | XMS_ITS | Encounter Summary ---
Author Organization [employer] Address [address] [place] [address] 7t [place] [address] Care Team Providers Care Enamel Dipper Name Role Phone Maddie Kim MD Primary Care Provider [phone] Reason for Referral * Consultation (Urgent) - Closed Specialty Diagnoses / Procedures Referred By Sindi mejia Referred To Contact Cardiology Diagnoses Primary hypertension Tachycardia Other chest pain Maddie Kim MD [address] [place] [address] Phone: tel: fax: [facility] Referral ID Status Reason Start Date Expiration Date V isits Requested Visits Authorized [id number] Closed Specialty Services Required 05/06/2024 05/06/2025 1 1 Encounter Details Date Type Department Care Team (Late st Contact Info) Description 05/06/2024 Orders Only [facility] MEDICINE 230 [place], [place] [phone] Maddie Kim MD 230 [place], [place] [phone] Primary hypertension (Primary Dx); Tachycardia; Other chest [...] documented as of this encounter Care Teams Enamel Dipper Relationship Specialty Start Date End Date Maddie Kim MD [address] [place] [address] PCP - General Family Medicine 07/12/20 [place] Gage 01/17/22 documented as of this encounter
--- OUTSIDE RECORDS SUMMARY | 2025-01-01 13:25 | XMS_ITS | Encounter Summary ---
Author Organization [facility] Address [address] [place] [address] Care Team Providers Care Sheet Metal Contractor Name Role Phone Darya Hamilton MD Primary [...] Care Team Description 12/17/2012 Telephone Adult Medicine [address] [address] Darya Hamilton MD Note, Other (Medical Resources) [...] on filedocumented in this encounter Care Teams Sheet Metal Contractor Relationship Specialty Start Date End Date Darya [...]
--- OUTSIDE RECORDS SUMMARY | 2025-01-01 13:25 | XMS_ITS | Encounter Summary ---
Author Organization [employer] Address [address] [place] [address] 7 [place] [address] Care Team Providers Care Automobile Brakes Bonder Name Role Phone Maddie Kim MD Primary Care Provider [phone] Reason for Visit * Reason Onset Date Comments Verbal orders/ Medication question 05/08/2023 Encounter Details Date Type Department Care Team ([facility] Contact Info) Description 05/08/2023 Telephone [facility] MEDICINE 230 [place], [place] [phone] Maddie Kim MD 230 [place], [place] [phone] Verbal orders/ Medication question Social History Tobacco [...] 05/09/2023 9:54 AM EDT TC placed to [place] at the [facility] and gave VO for penitentiary for 3 times a week. Pt medications were also reconciled and pt reports using Viviscal OTC for hair growth and Calcium + VitD supplements. * Telephone Encounter - Toña Castillo - 05/08/2023 4:20 PM EDT Tc from [facility] requesting some verbal orders reconciliation for skill nursing 3 times a week. [place] is also requesting a call back to speak about patient's medications. documented in this encounter Plan of Treatment Not on file documented as of this encounter Visit Diagnoses Not on filedocumented in this encounter Additional Health Concerns Assessment Noted Time PHQ-9 Depression Total Score: 0 05/30/19 23 3:26 PM EDT documented as of this encounter Care Teams Automobile Brakes Bonder Relationship Specialty Start Date End Date Maddie Kim MD [address] [place] [address] PCP - General Family Medicine 07/12/20 [place] Gage 01/17/22 documented as of this encounter
--- OUTSIDE RECORDS SUMMARY | 2025-01-01 13:25 | XMS_ITS | Encounter Summary ---
Author Organization [employer] Address [address] [place] [address] 7t [place] [address] Care Team Providers Care German Instructor Name Role Phone Maddie Kim MD Primary Care Provider [phone] Encounter Details Date Type Department Care Team ([facility] st Contact Info) Description 11/14/2022 Orders Only [facility] MEDICINE [address] [place] [address] Maddie Kim MD 230 [place] [address] Social History Tobacco Use Types Packs/Day Years [...] documented as of this encounter Care Teams German Instructor Relationship Specialty Start Date End Date Maddie Kim MD [address] [place] [address] PCP - General Family Medicine 07/12/20 [place] Gaeg 01/17/22 documented as of this encounter
--- OUTSIDE RECORDS SUMMARY | 2025-01-01 13:25 | XMS_ITS | Encounter Summary ---
Author Organization [employer] Address [address] [place] [address] 7t [place] [address] Care Team Providers Care It Desktop Support Specialist Name Role Phone Maddie Kim MD Primary Care Provider [phone] Encounter Details Date Type Department Care Team (Latest Contact Info) Description 12/31/2024 Travel Social History Tobacco Use Types Packs/Day [...] Questionnaire -2 Score 3 12/31/2024 3:49 PM Zain Gr [place] * Little interest or pleasure in [...] MA Trouble relaxing 1 12/31/2024 3:48 PM Zain Pereyra [place] Being so restless that it is [...] as of this encounter Care Teams It Desktop Support Specialist Relationship Specialty Start Date End Date Maddie Kim MD [address] [place] [address] PCP - General Family Medicine 07/12/20 [place] Gage 01/17/22 documented as of this encounter
--- OUTSIDE RECORDS SUMMARY | 2025-01-01 13:25 | XMS_ITS | Encounter Summary ---
Author Organization [employer] Address [address] [place] [address] 7 [place] [address] Care Team Providers Care Supervisor Printing And Stamping Name Role Phone Maddie Kmi MD Primary Care Provider [phone] Reason for Visit * Reason Onset Date Comments Chart Prep 12/30/2024 Encounter Details Date Type Department Care Team ([facility] Contact Info) Description 12/30/2024 Telephone [facility] 230 [place], [place] [phone] Maddie Kim MD 230 [place], [place] [phone] Chart Prep Social History Tobacco Use Types Packs/Day Years [...] encounter Miscellaneous Notes * Telephone Encounter - Naa Wright MA - 12/30/2024 12:24 PM EST Chart Prep Labs: done Images: done Referrals: appointment pending Vaccines due: Covid, Flu, Tdap, and Hep B Screenings: colonoscopy and Hep C Screening Overdue care gaps: PHQ-9 and IRENE-7 documented in this encounter Plan of Treatment Not on file documented as of this encounter Visit Diagnoses Not on filedocumented in this encounter Additional Health Concerns Assessment Noted Time PHQ-9 Depression Total Score: 9 07/05/19 25 6:48 AM EDT documented as of this encounter Care Teams Supervisor Printing And Stamping Relationship Specialty Start Date End Date Maddie Kim MD 230 [place] [address] PCP - General Family Medicine 07/12/20 Willie Gage 01/17/22 documented as of this encounter
--- OUTSIDE RECORDS SUMMARY | 2025-01-01 13:25 | XMS_ITS | Encounter Summary ---
Author Organization [employer] Address [address] [facility] 7t [place] [address] Care Team Providers Care Fashion Editor Name Role Phone Mdadie Kim MD Primary Care Provider [phone] Reason for Visit * Reason Comments Med Refill Encounter Details Date Type Department Care Team ([facility] st Contact Info) Description 04/12/2023 Refill [facility] [address] [place] [address] [phone] Isac Gonzalez MD [address] [place] [address] [phone] Chronic bilateral low back pain without sciatica [...] documented as of this encounter Care Teams Fashion Editor Relationship Specialty Start Date End Date Maddie Kim MD [address] [place] [address] PCP - General Family Medicine 07/12/20 Willie Gage 01/17/22 documented as of this encounter
--- OUTSIDE RECORDS SUMMARY | 2025-01-01 13:25 | XMS_ITS | Encounter Summary ---
Author Organization [employer] Address [address] [facility] 7t [place] [address] Care Team Providers Care Rate Clerk Passenger Name Role Phone Maddie Kim MD Primary Care Provider [phone] Reason for Visit * Reason Comments Med Refill Encounter Details Date Type Department Care Team ([facility] st Contact Info) Description 04/05/2023 Refill [facility] [address] [place] [address] [phone] Isac Gonzalez MD [address] [place] [address] [phone] Chronic bilateral low back pain without sciatica [...] - 04/06/2023 12:46 PM EST TC to [facility] pharmacy, T3 RX written 03/29/23 for [...] as of this encounter Care Teams Rate Clerk Passenger Relationship Specialty Start Date End Date Maddie Kim MD [address] [place] [address] PCP - General Family Medicine 07/12/20 Willie Gage 01/17/22 documented as of this encounter
--- OUTSIDE RECORDS SUMMARY | 2025-01-01 13:25 | XMS_ITS | Encounter Summary ---
Author Organization [facility] Address [address] [place] [address] Care Team Providers Care Superior Court Clerk Name Role Phone Dipesh Kern MD Primary Care Provide r Unavailable Becca Hinkle MD Primary Care Provider Unavailable Encounter Details Date Type Department Care Team Description 10/25/2018 Release of Information Medical Records [address] [place] [address] Abstract, Provider Social History Tobacco Use Types [...] on filedocumented in this encounter Care Teams Superior Court Clerk Relationship Specialty Start Date End Date Dipesh Kern MD PCP - General Internal Medicine 10/15/18 Becca Hinkle MD PCP - General Internal Medicine 03/23/21 documented as of this encounter
--- OUTSIDE RECORDS SUMMARY | 2025-01-01 13:25 | XMS_ITS | Encounter Summary ---
Author Organization [employer] Address [address] [place] [address] 7t [place] [address] Care Team Providers Care Riding Coach Name Role Phone Maddie Kim MD Primary Care Provider [phone] Reason for Visit * Reason Comments Med Refill Encounter Details Date Type Department Care Team ([facility] Contact Info) Description 12/25/2024 Refill [facility] MED[facility]INE 230 [place], [place] [phone] Maddie Kim MD 230 [place], [place] [phone] Social History Tobacco Use Types Packs/Day Years [...] documented as of this encounter Care Teams Riding Coach Relationship Specialty Start Date End Date Maddie Kim MD [address] [place] [address] PCP - General Family Medicine 07/12/20 Willie Gage 01/17/22 documented as of this encounter
--- OUTSIDE RECORDS SUMMARY | 2025-01-01 13:25 | XMS_ITS | Encounter Summary ---
Author Organization [facility] Address [address] [place] [address] Care Team Providers Care Medical Data Entry Clerk Name Role Phone Darya Hamilton MD Primary Care Provider Ronak Beasley, Pcp Primary Care Provider Unavailabl e Darya Hamilton MD Primary Care Provider Lewis Birmingham MD Primary Care Provider Un available Dipesh Kern MD Primary Care Provide r Unavailable Becca Hinkle MD Primary Care Provider Unavailable Encounter Details Date Type Department Care Team Description 10/10/2012 Controlled Substance Contract with [facility] Medical Records [address] [place] [phone] Abstract, Provider Social History Tobacco Use Types [...] filedocumented in this encounter Care Teams Medical Data Entry Clerk Relationship Specialty Start Date End Date [...]
--- OUTSIDE RECORDS SUMMARY | 2025-01-01 13:25 | XMS_ITS | Encounter Summary ---
Author Organization [facility] Address [address] [place] [address] Care Team Providers Care Trolley Worker Name Role Phone Darya Hamilton MD Primary Care Provider Ronak Beasley, Pcp Primary Care Provider Unavailabl e Darya Hamilton MD Primary Care Provider Lewis Birmingham MD Primary Care Provider Un available Dipesh Kern MD Primary Care Provide r Unavailable Becca Hinkle MD Primary Care Provider Unavailable Encounter Details Date Type Department Care Team Description 04/15/2013 Controlled Substance Contract with [facility] Medical Records [address] [place] [id number] Abstract, Provider Social History Tobacco Use Types [...] on filedocumented in this encounter Care Teams Trolley Worker Relationship Specialty Start Date End Date Darya Hamilton MD PCP - General 06/30/10 03/15/15 Replaced By [facility], Pcp PCP - General Internal Medicine 03/16/15 06/20/16 Darya Hamilton MD PCP - General Internal Medicine 06/21/16 11/12/16 Lewis Espino MD PCP - General Internal Medicine 11/13/16 Dipesh Kern MD PCP - General Internal Medicine 10/15/18 Becca Hinkle MD PCP - General Internal Medicine 03/23/21 documented as of this encounter
--- OUTSIDE RECORDS SUMMARY | 2025-01-01 13:25 | XMS_ITS | Encounter Summary ---
Author Organization [employer] Address [address] [place] [address] 7 [place] [address] Care Team Providers Care Aged Or Disabled Carer Name Role Phone Maddie Kim MD Primary Care Provider [phone] Reason for Visit * Reason Onset Date Comments Med Refill 03/19/2023 Encounter Details Date Type Department Care Team ([facility] Contact Info) Description 03/19/2023 Telephone [facility] MED[facility]INE 230 [place], [place] [phone] Maddie Kim MD 230 [place], [place] [phone] Med Refill Social History Tobacco Use Types [...] agrees. MD Maddie Saravia RN; [facility] Team Nurses Caller: Unspecified (2 weeks ago) I wrote her a work excuse extending her time for remote work until 04/05/23 * Telephone Encounter - Maddie Crawford RN - 04/02/2023 3:02 PM EST Images from the original note were not included. Triage call regarding Pt portal message below. Pt continues to have symptoms of Covid. Pt was seen in [facility] 03/29/[address] Gonzalez and [...] better sooner will [facility]. Advised Pt will send this [...] Diagnosed With COVID-19 by Doctor (or PASSENGER SOLICITOR/PA) and Mild Symptoms * General Care Advice for COVID-19 Symptoms * Humidifier * Coughing Spells * Pain and Fever Medicines * Mild Stomach and Intestinal Symptoms During COVID-19 Illness Atiya Johnson [facility] Clinial Support (supporting Lorrie Alaniz [...] documented as of this encounter Care Teams Aged Or Disabled Carer Relationship Specialty Start Date End Date Maddie Kim MD [address] [place] [address] PCP - General Family Medicine 07/12/20 Willie Gage 01/17/22 documented as of this encounter
--- OUTSIDE RECORDS SUMMARY | 2025-01-01 13:25 | XMS_ITS | Encounter Summary ---
Author Organization [employer] Address [address] [place] [address] 7t [place] [address] Care Team Providers Care Recreation Officer Name Role Phone Maddie Kim MD Primary Care Provider [phone] Encounter Details Date Type Department Care Team ([facility] st Contact Info) Description 01/27/2022 Telephone [facility] MEDICINE 230 [place], [place] [phone] Maddie Kim MD 230 [place], [place] [phone] Social History Tobacco Use Types Packs/Day Years [...] on filedocumented in this encounter Care Teams Recreation Officer Relationship Specialty Start Date End Date Maddie Kim MD [address] [place] [address] PCP - General Family Medicine 07/12/20 Willie Gage 01/17/22 documented as of this encounter
--- OUTSIDE RECORDS SUMMARY | 2025-01-01 13:25 | XMS_ITS | Encounter Summary ---
Author Organization [employer] Address [address] [place] [address] 7t [place] [address] Care Team Providers Care Performance Consultant Name Role Phone Maddie Kim MD Primary Care Provider [phone] Encounter Details Date Type Department Care Team ([facility] st Contact Info) Description 03/19/2023 Orders Only [facility] 230 [place], [place] [phone] Maddie Kim MD 230 [place], [place] [phone] Herniated lumbar intervertebral disc (Primary Dx) Social [...] documented as of this encounter Care Teams Performance Consultant Relationship Specialty Start Date End Date Maddie Kim MD [address] [place] [address] PCP - General Family Medicine 07/12/20 Willie Gage 01/17/22 documented as of this encounter
--- OUTSIDE RECORDS SUMMARY | 2025-01-01 13:25 | XMS_ITS | Encounter Summary ---
Author Organization [employer] Address [address] [facility] 7t [place] [address] Care Team Providers Care Project Geophysicist Name Role Phone Maddie Kim MD Primary Care Provider [phone] Reason for Visit * Reason Comments Med Refill Encounter Details Date Type Department Care Team ([facility] st Contact Info) Description 04/12/2023 Refill [facility] [address] [place] [address] [phone] Isac Gonzalez MD [address] [place] [address] [phone] Chronic bilateral low back pain without sciatica [...] documented as of this encounter Care Teams Project Geophysicist Relationship Specialty Start Date End Date Maddie Kim MD [address] [place] [address] PCP - General Family Medicine 07/12/20 Willie Gage 01/17/22 documented as of this encounter
--- OUTSIDE RECORDS SUMMARY | 2025-01-01 13:25 | XMS_ITS | Encounter Summary ---
Author Organization [employer] Address [address] [facility] 7t [place] [address] Care Team Providers Care Grinder Operator Automatic Name Role Phone Maddie Kim MD Primary Care Provider [phone] Reason for Visit * Reason Comments Med Refill Encounter Details Date Type Department Care Team ([facility] st Contact Info) Description 03/18/2023 Refill [facility] [address] [place] [address] [phone] Maddie Kim MD [address] [place] [address] [phone] Social History Tobacco Use Types Packs/Day Years [...] documented as of this encounter Care Teams Grinder Operator Automatic Relationship Specialty Start Date End Date Maddie Kim MD [address] [place] [address] PCP - General Family Medicine 07/12/20 Willie Gage 01/17/22 documented as of this encounter
--- OUTSIDE RECORDS SUMMARY | 2025-01-01 13:25 | XMS_ITS | Encounter Summary ---
Author Organization [employer] Address [address] [place] [address] 7 [place] [address] Care Team Providers Care Teacher Of The Deaf Name Role Phone Maddie Kim MD Primary Care Provider [phone] Reason for Visit * Reason Comments Med Change Request Encounter Details Date Type Department Care Team ([facility] Contact Info) Description 07/25/2024 Refill [facility] MEDICINE 230 [place], [place] [phone] Maddie Kim MD 230 [place], [place] [phone] Social History Tobacco Use Types Packs/Day Years [...] documented as of this encounter Care Teams Teacher Of The Deaf Relationship Specialty Start Date End Date Maddie Kim MD 230 [place] [address] PCP - General Family Medicine 07/12/20 Willie Gage 01/17/22 documented as of this encounter
--- OUTSIDE RECORDS SUMMARY | 2025-01-01 13:25 | XMS_ITS | Encounter Summary ---
Author Organization [employer] Address [address] [place] [address] 7t [place] [address] Care Team Providers Care Stagecraft Professor Name Role Phone Maddie Kim MD Primary Care Provider [phone] Encounter Details Date Type Department Care Team ([facility] st Contact Info) Description 12/22/[address] [facility] MEDICINE 230 [place], [place] [phone] Maddie Kim MD 230 [place], [place] [phone] Social History Tobacco Use Types Packs/Day Years [...] documented as of this encounter Care Teams Stagecraft Professor Relationship Specialty Start Date End Date Maddie Kim MD [address] [place] [address] PCP - General Family Medicine 07/12/20 Willie Gage 01/17/22 documented as of this encounter
--- OUTSIDE RECORDS SUMMARY | 2025-01-01 13:25 | XMS_ITS | Encounter Summary ---
Author Organization [employer] Address [address] [place] [address] 7 [place] [address] Care Team Providers Care Farm Operations Technical Director Name Role Phone Maddie Kim MD Primary Care Provider [phone] Reason for Referral * Consultation (Routine) - Closed Specialty Diagnoses / Procedures Referred By Sindi mejia Referred To Contact Nutrition Diagnoses Class 2 severe obesity with serious comorbidity and body mass index (BMI) of 39.0 to 39.9 in adult, unspecified obesity type Maddie Kim MD [address] [place] [phone] Phone: tel: fax: Referral ID Status Reason Start Date Expiration Date V isits Requested Visits Authorized [id number] Closed Consult and Treat 04/06/2023 04/05/2024 1 1 Encounter Details Date Type Department Care Team (Late st Contact Info) Description 04/06/2023 Orders Only [facility] MEDICINE [address] [place] [address] [phone] Maddie Kim MD [address] [place] [address] [phone] Class 2 severe obesity with serious comorbidity [...] PM EDT Narrative 05/26/2023 3:06 PM EDT [address] [place] [address] Mammography Report Signed Patient: Atiya Esparza MR#: [id number] : 1975 Acct:[id number] Age/Sex: 47 / F ADM Date: 05/04/23 [facility]: Maddie Kim MD Ordering Physician: Maddie Kim Results: 1Negative Date of Service: 05/04/23 Follow Up: 1 Year From [facility] Mammogram Procedure(s): MM tomosynthesis screening BI Accession Number(s): [id number] cc: Maddie Kim EXAMINATION: MM SCREENING DIGITAL [...] in OV> 05/26/23 1503 DD/ 1602 TD/TT: Undercar Specialist: Procedure Note Donotuseinterpreter, Image - 05/26/[address] [place] [address] Mammography Report Signed Patient: Zain Esparza#: [id number] : 1975Acct:[id number] Age/Sex: 47 / FADM Date: 05/04/23 Loc: [facility] Attending Dr: Maddie Kim MD Ordering Physician: Jjaa Kimults: 1Negative Date of Service: 05/04/23Follow Up: 1 Year From [facility] Mammogram Procedure(s): MM tomosynthesis screening BI Accession Number(s): [id number] cc: Maddie Kim EXAMINATION: MM SCREENING DIGITAL [...] in OV> 05/26/23 1503 DD/ 1602 TD/TT: Undercar Specialist: Maddie Kim MD IMG BI PROCEDURES [...] documented as of this encounter Care Teams Farm Operations Technical Director Relationship Specialty Start Date End Date Maddie Kim MD 230 [place] [address] PCP - General Family Medicine 07/12/20 Willie Gage 01/17/22 documented as of this encounter
--- OUTSIDE RECORDS SUMMARY | 2025-01-01 13:25 | XMS_ITS | Encounter Summary ---
Author Organization [facility] Address [address] [place] [address] Care Team Providers Care Integrative Medicine Physician Name Role Phone Darya Hamilton MD Primary [...] Care Team Description 12/30/2014 Telephone Adult Medicine [address] [address] Darya Hamilton MD Faxed Order Social History [...] on filedocumented in this encounter Care Teams Integrative Medicine Physician Relationship Specialty Start Date End Date Darya [...]
--- OUTSIDE RECORDS SUMMARY | 2025-01-01 13:25 | XMS_ITS | Encounter Summary ---
Author Organization [employer] Address [address] [place] [address] 7 [place] [address] Care Team Providers Care Hole Puncher Strap Name Role Phone Maddie Kim MD Primary Care Provider [phone] Reason for Visit * Reason Onset Date Comments c/b request 11/10/2022 Encounter Details Date Type Department Care Team ([facility] Contact Info) Description 11/10/[address] [facility] MEDICINE [address] [place] [address] [phone] Maddie Kim MD 230 [place], [place] [phone] c/b request Social History Tobacco Use Types [...] to medication reconciliation. Please contact [employer] at [phone] documented in this encounter Plan of Treatment Not on file documented as of this encounter Visit Diagnoses Diagnosis Gastroesophageal reflux disease without esophagitis Esophageal reflux documented in this encounter Additional Health Concerns Assessment Noted Time PHQ-9 Depression Total Score: 0 05/30/19 23 3:26 PM EDT documented as of this encounter Care Teams Hole Puncher Strap Relationship Specialty Start Date End Date Maddie Kim MD [address] [place] [address] PCP - General Family Medicine 07/12/20 Willie Gage 01/17/22 documented as of this encounter
--- OUTSIDE RECORDS SUMMARY | 2025-01-01 13:26 | XMS_ITS | Encounter Summary ---
Author Organization [facility] Address [address] [place] [address] Care Team Providers Care Telephone Diaphragm Assembler Name Role Phone Dipesh Kern MD Primary Care Provide r Unavailable Becca Hinkle MD Primary Care Provider Unavailable Encounter Details Date Type Department Care Team Description 08/24/2020 [facility] Medical Records [address] [place] [phone] [place] [address] Social History Tobacco Use Types Packs/Day Years [...] on filedocumented in this encounter Care Teams Telephone Diaphragm Assembler Relationship Specialty Start Date End Date Dipesh Kern MD PCP - General Internal Medicine 10/15/18 Becca Hinkle MD PCP - General Internal Medicine 03/23/21 documented as of this encounter
--- OUTSIDE RECORDS SUMMARY | 2025-01-01 13:26 | XMS_ITS | Encounter Summary ---
Author Organization [employer] Address [address] [place] [address] 7t [place] [address] Care Team Providers Care Internal Revenue Service Agent Name Role Phone Maddie Kim MD Primary Care Provider [phone] Encounter Details Date Type Department Care Team ([facility] st Contact Info) Description 06/26/2022 Abstract [facility] MEDICINE 230 [place], [place] [phone] Maddie Kim MD 230 [place], [place] [phone] Social History Tobacco Use Types Packs/Day Years [...] documented as of this encounter Care Teams Internal Revenue Service Agent Relationship Specialty Start Date End Date Maddie Kim MD [address] [place] [address] PCP - General Family Medicine 07/12/20 Willie Gage 01/17/22 documented as of this encounter
--- OUTSIDE RECORDS SUMMARY | 2025-01-01 13:26 | XMS_ITS | Encounter Summary ---
Author Organization [employer] Address [address] [place] [address] 7 [place] [address] Care Team Providers Care Loading Rack Supervisor Name Role Phone Maddie Kim MD Primary Care Provider [phone] Reason for Referral * Consultation (Routine) - Closed Specialty Diagnoses / Procedures Referred By Sindi mejia Referred To Contact Physical Therapy Diagnoses Cervical spine pain Maddie Kim MD [address] [place] [address] Phone: tel: fax: AT Physical Therapy - [address] [address] Phone: tel: fax: Referral ID Status Reason Start Date Expiration Date V isits Requested Visits Authorized [id number] Closed Specialty Services Required 10/17/2024 10/17/2025 1 1 Encounter Details Date Type Department Care Team (Late st Contact Info) Description 10/17/2024 Orders Only [facility] MEDICINE 230 [place] [address] Maddie Kim MD 230 [place], [place] [phone] Cervical spine pain (Primary Dx) Social History [...] documented as of this encounter Care Teams Loading Rack Supervisor Relationship Specialty Start Date End Date Maddie Kim MD [address] [place] [address] PCP - General Family Medicine 07/12/20 Willie Gage 01/17/22 documented as of this encounter
--- OUTSIDE RECORDS SUMMARY | 2025-01-01 13:26 | XMS_ITS | Encounter Summary ---
Author Organization [employer] Address [address] [place] [address] 7t [place] [address] Care Team Providers Care Snack Bar Cashier Name Role Phone Maddie Kim MD Primary Care Provider Encounter Details Date Type Department Care Team ([facility] st Contact Info) Description 04/14/2024 Orders Only [facility] [address] [place], [place] [phone] Maddie Kim MD [address] [place], [place] [phone] Social History Tobacco Use Types Packs/Day Years [...] HOSPITAL LABS Comment:THIS TEST WAS PERFOR MED AT:[employer] [place] [phone] PARKINSON MD Immunofixation Result SEE NOTE [facility] Comment:Normal pattern. No m onoclonal proteins detected. 04/14/2024 12:4 7 PM EST 04/14/2024 12:47 PM EST us Generic External Data Provider LAB BLOOD ORDERAB LES Final Result Performing Organization Address [facility] de Phone Number [facility] [address] [place] [phone] * Cortisol Random (04/14/2024 12:47 PM EST) Pathologist [facility] Cortisol Random 5.7 ug/dL [facility] Comment:Reference Range*: Be fore 10 am 6.2-19.4 ug/dL After 5 pm 2.3-11.9 ug/dL*Please interpret above results accordingly.This test was performed using the [employer] chemiluminescentmethod. Values obtained from different assay methods cannotbe used interchangeably.Patients receiving fludrocortisone, prednisolone orprednisone may show artificially elevated cortisol valuesdue to cross-reactivity. 04/14/2024 12:4 7 PM EST 04/14/2024 12:47 PM EST us [employer] External Data Provider LAB BLOOD ORDERAB LES Final Result Performing Organization Address [facility] de Phone Number [facility] [address] [place] [phone] * Ferritin (04/14/2024 12:47 PM EST) Pathologist [facility] Ferritin 61 10 - 250 ng/mL [facility] 04/14/2024 12:4 7 PM EST 04/14/2024 12:47 PM EST Gil Brewer MD LAB BLOOD ORDERABLES Final Resul t Performing Organization Address [facility] Co de Phone Number [facility] [address] [place] [phone] * Iron And Total Iron Binding Capacity (04/14/2024 12:47 PM EST) Pathologist [facility] Iron 77 30 - 160 mcg/dL [facility] Total Iron Binding Capacity 339 228 - 428 mcg/dL [facility] Percent Iron Saturation 23 15 - 50 % [facility] Unsaturated Iron Binding 262 ug/dL [facility] 04/14/2024 12:4 7 PM EST 04/14/2024 12:47 PM EST us Gil Brewer MD LAB BLOOD ORDERABLES Final Resul t [facility] [address] [place] [phone] * (ABNORMAL) Basic Metabolic Panel (04/14/2024 12:47 PM EST) Pathologist [facility] Sodium 139 135 - 145 mmol/L [facility] [...] Kidney Disea se: Estimated GFR < 60 mL/min/1.30z2Lgygwu Kidney Disease: Estimated GFR < 15 mL/min/1.73m2 Glucose 84 60 - 115 mg/dL [facility] Calcium 9.5 8.4 - 10.2 mg/dL [facility] 04/14/2024 12:4 7 PM EST 04/14/2024 12:47 PM EST us Gil Brewer MD LAB BLOOD ORDERABLES Final Resul t [facility] [address] [place] [address] [phone] * (ABNORMAL) CBC auto [...] Resul t Performing Organization Address [facility] Co de Phone Number [facility] [address] [place] [phone] * (ABNORMAL) Osmolality, Urine (04/14/2024 12:45 PM EST) OSMOLALITY URINE 212(L) 373 - 1,093 mosm/kg [facility] 04/14/2024 12:4 5 PM EST 04/14/2024 1:55 PM EST us Generic External Data Provider LAB URINE ORDERAB LES Final Result Performing Organization Address [facility] Co de Phone Number [facility] [address] [place] [phone] * Sodium Without creatinine, Random Urine (04/14/2024 12:45 PM EST) Sodium Urine Random 47.0 mmol/L [facility] 04/14/2024 12:4 5 PM EST 04/14/2024 1:55 PM EST us Generic External Data Provider LAB BLOOD ORDERAB LES Final Result Performing Organization Address [facility] Co de Phone Number [facility] [address] [place] [address] [place] [phone] documented in this encounter Visit Diagnoses Not on filedocumented in this encounter Additional Health Concerns Assessment Noted Time PHQ-9 Depression Total Score: 3 06/15/19 24 11:48 AM EDT documented as of this encounter Care Teams Snack Bar Cashier Relationship Specialty Start Date End Date Maddie Kim MD [address] [place] [phone] PCP - General Family Medicine 07/12/20 Willie Caring 01/17/22 documented as of this encounter
--- OUTSIDE RECORDS SUMMARY | 2025-01-01 13:26 | XMS_ITS | Encounter Summary ---
Author Organization [employer] Address [address] [place] [address] 7t [place] [address] Care Team Providers Care Customer Services Supervisor Name Role Phone Maddie Kim MD Primary Care Provider [phone] Encounter Details Date Type Department Care Team ([facility] st Contact Info) Description 07/07/2024 Orders Only [facility] [address] [place], [place] [phone] Maddie Kim MD [address] [place], [place] [phone] Benign hypertension (Primary Dx) Social History Tobacco [...] the past 12 months, has t he [employer], gas, oil or water company threatened to [...] EDT) Sodium 136 135 - 145 mmol/L [facility] Potassium 4.3 3.3 - 5.1 mmol/L [facility] Chloride 105 96 - 108 mmol/L [facility] Carbon Dioxide 24 22 - 29 mmol/L [facility] Anion Gap 11(L) 12 - 20 [facility] Urea Nitrogen (BUN) 13 9 - 16 mg/dL [facility] Creatinine, Serum 0.68 0.5 - 1.4 mg/dL [facility] Estimated Glomerular Filt Rate >60 [facility] Comment:Chronic Kidney Disea se: Estimated GFR < 60 mL/min/1.63w9Gqrbvt Kidney Disease: Estimated GFR < 15 mL/min/1.73m2 Glucose 88 60 - 115 mg/dL [facility] Calcium 9.3 8.4 - 10.2 mg/dL [facility] Blood Venous blood specimen / Unknown 07/10/2024 8:29 AM EDT 07/10/2024 8:29 AM EDT us Maddie Kim MD LAB BLOOD ORDERABLES Final Res ult [facility] [address] [place] [phone] [phone] documented in this encounter Visit Diagnoses Diagnosis Benign hypertension- Primary Essential hypertension, benign documented in this encounter Additional Health Concerns Assessment Noted Time PHQ-9 Depression Total Score: 9 07/05/19 25 6:48 AM EDT documented as of this encounter Care Teams Customer Services Supervisor Relationship Specialty Start Date End Date Maddie Kim MD [address] [place] [address] PCP - General Family Medicine 07/12/20 Willie Caring 01/17/22 documented as of this encounter
--- OUTSIDE RECORDS SUMMARY | 2025-01-01 13:26 | XMS_ITS | Encounter Summary ---
Author Organization [facility] Address [address] [place] [address] Care Team Providers Care Track Laminating Machine Tender Name Role Phone Darya Hamilton MD Primary Care Provider Ronak Beasley, Pcp Primary Care Provider Unavailabl e Darya Hamilton MD Primary Care Provider Lewis Birmingham MD Primary Care Provider Un available Dipesh Kern MD Primary Care Provide r Unavailable Becca Hinkle MD Primary Care Provider Unavailable Encounter Details Date Type Department Care Team Description 06/08/2014 TRAFFIC CLERK/[facility] Report Medical Records [address] [place] [phone] Abstract, Provider Social History Tobacco Use Types [...] on filedocumented in this encounter Care Teams Track Laminating Machine Tender Relationship Specialty Start Date End Date Darya Hamilton MD PCP - General 06/30/10 03/15/15 Pending Sale To [facility], Pcp PCP - General Internal Medicine 03/16/15 06/20/16 Darya Hamilton MD PCP - General Internal Medicine 06/21/16 11/12/16 Lewis Espino MD PCP - General Internal Medicine 11/13/16 Dipesh Kern MD PCP - General Internal Medicine 10/15/18 Becca Hinkle MD PCP - General Internal Medicine 03/23/21 documented as of this encounter
--- OUTSIDE RECORDS SUMMARY | 2025-01-01 13:26 | XMS_ITS | Encounter Summary ---
Author Organization [employer] Address [address] [place] [address] 7 [place] [address] Care Team Providers Care Claims Administrator Name Role Phone Maddie Kim MD Primary Care Provider [phone] Reason for Visit * Reason Onset Date Comments Medication Question 07/09/2024 Encounter Details Date Type Department Care Team ([facility] Contact Info) Description 07/09/2024 Telephone [facility] [address] [place], [place] [phone] Maddie Kim MD [address] [place], [place] [phone] Medication Question Social History Tobacco Use Types [...] 06/18/24 per PCP note. Patent spoke to outside industrial sales representative's today and reported that [facility] is unable [...] documented as of this encounter Care Teams Claims Administrator Relationship Specialty Start Date End Date Maddie Kim MD [address] [place] [address] PCP - General Family Medicine 07/12/20 Willie Gage 01/17/22 documented as of this encounter
--- OUTSIDE RECORDS SUMMARY | 2025-01-01 13:26 | XMS_ITS | Encounter Summary ---
Author Organization [facility] Address [address] [place] [address] Care Team Providers Care Prime Broker Name Role Phone Darya Hamilton MD Primary Care Provider Unava nel Pending Sale To [facility], Pcp Primary Care Provider Unavailabl e Darya Hamilton MD Primary Care Provider Unava Lewis Galvan MD Primary Care Provider Un available Dipesh Kern MD Primary Care Provide r Unavailable Becca Hinkle MD Primary Care Provider Unavailable Reason for Visit * Reason Onset Date Comments REFERRAL 06/17/2014 Encounter Details Date Type Department Care Team Description 06/17/2014 Telephone Urology [address] [place] [phone] Wan Rosa MD REFERRAL Social History Tobacco [...] referral: incontinence Priority: Next Available Payor: Not third-republican related Patient did not keep their scheduled appointment with Dr. Rosa on 06/11 nor did they respond to an attempt to r/s this visit_FYI documented in this encounter Plan of Treatment Not on file documented as of this encounter Visit Diagnoses Not on filedocumented in this encounter Care Teams Prime Broker Relationship Specialty Start Date End Date Darya Hamilton MD PCP - General 06/30/10 03/15/15 Pending Sale To [facility], [facility] PCP - General Internal Medicine 03/16/15 06/20/16 Darya Hamilton MD PCP - General Internal Medicine 06/21/16 11/12/16 Lewis Espino MD PCP - General Internal Medicine 11/13/16 Dipesh Kern MD PCP - General Internal Medicine 10/15/18 Figueroa-Becca Callaway MD PCP - General Internal Medicine 03/23/21 documented as of this encounter
--- OUTSIDE RECORDS SUMMARY | 2025-01-01 13:26 | XMS_ITS | Encounter Summary ---
Author Organization [employer] Address [address] [place] [address] 7 [place] [address] Care Team Providers Care Halfway House Counselor Name Role Phone Maddie Kim MD Primary Care Provider [phone] Reason for Visit * Reason Onset Date Comments Med Refill 09/19/2024 Encounter Details Date Type Department Care Team ([facility] Contact Info) Description 09/19/2024 Telephone [facility] [address] [place], [place] [phone] Maddie Kim MD [address] [place], [place] [phone] Med Refill Social History Tobacco Use Types [...] the past 12 months, has t he [employer] gas, oil or water company threatened to [...] PM EDT Medication was sent to [id number] on 08/27/24 with 2 refills patient can call pharmacy and transfer medication. * Telephone Encounter - Gil Metz - 09/19/2024 1:29 PM EDT TC from pt requesting medication refill. Medications needing refill : Tirzepatide-Weight Management (Zepbound) 10 MG/0.5ML solution auto-injector To be sent to: [facility] - [place], [place] - [address] documented in this encounter Plan of Treatment Not on file documented as of this encounter Visit Diagnoses Not on filedocumented in this encounter Additional Health Concerns Assessment Noted Time PHQ-9 Depression Total Score: 9 07/05/19 25 6:48 AM EDT documented as of this encounter Care Teams Halfway House Counselor Relationship Specialty Start Date End Date Maddie Kim MD [address] [place] [address] PCP - General Family Medicine 07/12/20 Willie Gage 01/17/22 documented as of this encounter
--- OUTSIDE RECORDS SUMMARY | 2025-01-01 13:26 | XMS_ITS | Encounter Summary ---
Author Organization [facility] Address [address] [place] [address] Care Team Providers Care Logistics Planning Engineer Name Role Phone Darya Hamilton MD [...] Care Team Description 08/13/2014 Telephone Adult Medicine [address] [address] Darya Hamilton MD Faxed Order Social History [...] on filedocumented in this encounter Care Teams Logistics Planning Engineer Relationship Specialty Start Date End Date [...]
--- OUTSIDE RECORDS SUMMARY | 2025-01-01 13:26 | XMS_ITS | Encounter Summary ---
Author Organization [employer] Address [address] [place] [address] 7 [place] [address] Care Team Providers Care It Auditor Name Role Phone Maddie Kim MD Primary Care Provider Reason for Visit * Reason Onset Date Comments Durable Medical Equipment 03/16/2022 Encounter Details Date Type Department Care Team ([facility] st Contact Info) Description 03/16/2022 Telephone [facility] MED[facility]INE [address] [place] [address] [phone] Maddie Kim MD [address] [place], [place] [phone] Durable Medical Equipment Social History Tobacco Use [...] it can fax to her landlord at [phone]. She would like the script to be to the [facility] [employer] [place], [address] [place] [address] If any concerns please contact pt at [phone] documented in this encounter Plan of Treatment Not on file documented as of this encounter Visit Diagnoses Not on filedocumented in this encounter Care Teams It Auditor Relationship Specialty Start Date End Date Maddie Kim MD [address] [place] [phone] PCP - General Family Medicine 07/12/20 Willie Gage 01/17/22 documented as of this encounter
--- OUTSIDE RECORDS SUMMARY | 2025-01-01 13:26 | XMS_ITS | Encounter Summary ---
Author Organization [facility] Address [address] [place] [address] Care Team Providers Care Dispatcher Service Or Work Name Role Phone Darya Hamilton MD Primary Care Provider Ronak Beasley, Pcp Primary Care Provider Unavailabl e Darya Hamilton MD Primary Care Provider Lewis Birmingham MD Primary Care Provider Un available Dipesh Kern MD Primary Care Provide r Unavailable Becca Hinkle MD Primary Care Provider Unavailable Encounter Details Date Type Department Care Team Description 09/22/2014 Business Doc Medical Records [address] [place] [id number] Abstract, Provider Social History Tobacco Use Types [...] filedocumented in this encounter Care Teams Dispatcher Service Or Work Relationship Specialty Start Date End Date Darya Hamilton MD PCP - General 06/30/10 03/15/15 [facility], Pcp PCP - General Internal Medicine 03/16/15 06/20/16 Darya Hamilton MD PCP - General Internal Medicine 06/21/16 11/12/16 Lewis Espino MD PCP - General Internal Medicine 11/13/16 Dipesh Kern MD PCP - General Internal Medicine 10/15/18 Becca Hinkle MD PCP - General Internal Medicine 03/23/21 documented as of this encounter
--- OUTSIDE RECORDS SUMMARY | 2025-01-01 13:26 | XMS_ITS | Clinical Summary ---
Author Organization [facility] Address [address] [place] [address] Care Team Providers Care Vault Clerk Name Role Phone Figueroa-Becca Callaway MD Primary [...] Bipolar affective disorder Overview: Dr. Lentz at [facility] Resolved Problems Problem Noted Date Resolved Date [...] 84 11/06/2018 9:37 AM EDT Temperature 36.9 C (98.4 F) 10/23/2018 1:50 PM EDT Respiratory Rate 14 11/06/2018 9:37 AM EDT [...] 04/06/2014, 04/2014, 11/20/2013, Additional history exists INFLUENZA (#1) 2024 10/13/2014, 09/20, 11/01/2011, Additional history exists PNEUMOCOCCAL VACCINE FOR HIG H RISK PATIENTS (#1) 2042 Care Teams Vault Clerk Relationship Specialty Start Date End Date Caldwell-Becca Callaway MD PCP - General Internal Medicine 03/23/21
--- OUTSIDE RECORDS SUMMARY | 2025-01-01 13:26 | XMS_ITS | Encounter Summary ---
Author Organization [employer] Address [address] [place] [address] 7 [place] [address] Care Team Providers Care Picking Machine Operator Helper Name Role Phone Maddie Kim MD Primary Care Provider [phone] Encounter Details Date Type Department Care Team (Late st Contact Info) Description 03/30/[address] [facility] [address] [place] [address] Maddie Kim MD [address] [place] [address] Social History Tobacco Use Types Packs/Day Years [...] on filedocumented in this encounter Care Teams Picking Machine Operator Helper Relationship Specialty Start Date End Date Maddie Kim MD [address] [place] [address] PCP - General Family Medicine 07/12/20 Willie Gage 01/17/22 documented as of this encounter
== END 2025-01-01 11:19 | disposition home or self-care (01) ==
LOC: HO.HKAS 10:50
PROVIDERS: Visit Provider Internal Medicine Nephrology
DX: E87.1 Hypo-osmolality and hyponatremia (principal); I10 Essential (primary) hypertension
CPT/HCPCS: 99214

== ENCOUNTER → 2025-01-01 10:50 | Outpatient (BNVA) | payer OTHER, SELFPAY | PROVIDERS: Visit Provider Internal Medicine Nephrology | DX: I10 Essential (primary) hypertension (principal); E87.1 Hypo-osmolality and hyponatremia | CPT/HCPCS: 99212 ==

== ENCOUNTER 2025-01-06 10:34 | Emergency (ER) | payer OTHER, SELFPAY ==
--- NOTE | ~2025-01-06 | XR_ITS ---
EXAMINATION: XR ABDOMEN KUB CLINICAL INDICATION: constipation, hx of SBO COMPARISON: None available. TECHNIQUE: AP view of the abdomen. FINDINGS: Sutures in the left upper quadrant abdomen. 5 mm calcification in the medial aspect of the left upper quadrant abdomen below the left hemidiaphragm. There is abundant stool in a nondilated large intestine, ascending and descending colon. No air-fluid levels. Liver shadow projects below the rib cage. S-shaped curvature of the thoracolumbar spine. Patient's large body habitus/obesity. XR/XR KUB IMPRESSION: Abundant stool without intestinal obstruction pattern. Questionable nephrolithiasis, left kidney. Probable hepatomegaly. Electronically signed by: Roddy Gandhi MD 01/06/2025 11:26 AM IRIS JOSHUA
--- NOTE | ~2025-01-06 | CT_ITS ---
EXAMINATION: CT ABDOMEN AND PELVIS WITH CONTRAST CLINICAL INFORMATION: Abdominal pain. Vomiting. Constipation. History of small bowel obstruction. COMPARISON: Correlated to x-ray dated January 06, 2025. TECHNIQUE: Multidetector volumetric images were obtained from the superior aspect of the liver through the pubic symphysis following administration 85 mL of Omnipaque 350 intravenous contrast. Sagittal and coronal reformatted images were obtained on the technologist's workstation. Oral contrast: Yes This CT examination was performed using dose optimization techniques as appropriate, variously including the following: *Automated exposure control *Adjustment of mA and/or kV according to patient size (this includes techniques or standardized protocols for targeted exams where dose is matched to indication/reason for exam; i.e. extremities or head) *Use of iterative reconstruction technique DLP: 630 mGy-cm FINDINGS: LUNG BASES: No acute airspace disease. 1. Noncalcified pulmonary nodule, peripheral right hepatic lobe. LIVER, GALLBLADDER, AND BILIARY TREE: 20 cm. No solid or cystic lesion. Main portal veins and hepatic veins are patent. Intrahepatic portion of the IVC is patent. Gallbladder is absent. Common bile duct measures 7 mm which tapers at the junction with the second portion of the duodenum. PANCREAS: No solid or cystic lesion. Volume loss. No main pancreatic ductal dilatation. No peripancreatic fluid collections. SPLEEN: 10 cm. No solid or cystic mass. ADRENAL GLANDS: No nodular lesion. KIDNEYS AND URETERS: No hydronephrosis. No gross nephrolithiasis. Normal enhancement pattern of the renal cortex. No dilatation of the ureters. BLADDER: Fluid-filled. GASTROINTESTINAL TRACT: Sutures at the gastroesophageal junction/proximal stomach and proximal small bowel loops likely 1Y procedure. The oral contrast reaches the cecum/ascending colon. There is abundant stool in the large intestine. No intestinal obstruction pattern. No pneumatosis intestinalis. Appendix is normal. No ascites. No pneumoperitoneum. ABDOMINAL WALL: No gross umbilical hernia. LYMPH NODES: No mesenteric or retroperitoneal lymphadenopathy. VASCULAR: Calcified plaques in the coronary arteries and distal abdominal aorta. No aneurysm or dissection abdominal aorta. PELVIC VISCERA: Probably status post the tubal ligation. No gross masses. OSSEOUS STRUCTURES: Dextroconvex scoliosis/curvature apex at L3-4. Endplate sclerosis decreased intervertebral disc height vacuum phenomenon and marginal osteophyte formation at L4-5. Multilevel lower thoracic spondylosis. No acute fracture or gross listhesis. CT/CT abdomen pelvis w IV con IMPRESSION: Status post Melissa-en-Y procedure without intestinal obstruction pattern. Status post cholecystectomy with questionable stricture of the central body. Spondylosis, moderate to severe with scoliosis at L4-5. Fleischner guidelines were followed. Electronically signed by: Roddy Gandhi MD 01/06/2025 03:30 PM EST
[2025-01-06 10:36] VITALS: BP 122/58; PULSE 71; RESP 18; TEMP 36.1; O2SAT 98; BMI 31.5
--- NOTE | 2025-01-06 10:36 | ED_ITS ---
HPI - Abdominal Pain General Chief Complaint: Abdominal Pain Stated Complaint: abd pain Time Seen by Provider: 01/06/25 12:23 Source: patient, RN notes reviewed and old records reviewed Mode of arrival: ambulatory Limitations: no limitations History of Present Illness ED Provider: Hilaria HPI narrative: Patient is a 49-year-old female with history of bipolar disorder, ADHD, herniated discs, PTSD, hypertension and substance use disorder, bowel obstruction who presents with approximately 3?4 weeks of constipation and intermittent abdominal pain. ? Reports only ?a couple? bowel movements during this period, each producing a small amount of stool. ? Current bowel regimen: bisacodyl 10 mg PO nightly, Miralax, and Metamucil every morning without adequate relief. ? Abdominal pain located epigastric (?right where my stomach starts?) with cramping lower abdominal discomfort. ? Associated symptoms: nausea, two episodes of emesis yesterday (food contents) and one episode of water emesis today; frequent burping; uncertain ability to pass flatus. ? Denies fever. MD elicited complaint: abdominal pain Related Data Home Medications ?Medication ?Instructions ?Recorded ?Confirmed cyclobenzaprine 10 mg tablet 10 mg PO TID 03/12/24 multivitamin 1 tab PO DAILY 03/25/2411/20 omeprazole 20 mg capsule,delayed 20 mg PO BID 03/25/24 12/17/24 release cholecalciferol (vitamin D3) 50 50 mcg PO DAILY 12/17/24 mcg (2,000 unit) tablet (Vitamin D3) docusate sodium 100 mg capsule 100 mg PO BID PRN Const ipation 07/07/24 12/17/24 ferrous gluconate 324 mg (36 mg 324 mg PO DAILY 12/17/24 iron) tablet paliperidone palmitate 234 mg/1.5 234 mg IM QMONTH 12/17/24 mL intramuscular syringe (Invega Sustenna) thiamine HCl (vitamin B1) 50 mg 50 mg PO DAILY 5 12/17/24 tablet (Vitamin B-1) tirzepatide (weight loss) 5 mg/0.5 5 mg subcut QWEEK 0 07/07/24 12/17/24 mL subcutaneous pen injector (Zepbound) Previous Rx's ?Medication ?Instructions ?Recorded propranolol 10 mg tablet See Rx Instructions .Route 0 04/24/24 .COMPLEX as directed #120 tabs lisinopril 30 mg tablet 10 mg (0.3333 x 30 mg) PO DA KAREN 12/16/24 #10 tabs cariprazine 1.5 mg capsule 1.5 mg PO DAILY 14 days #14 caps 12/25/24 gabapentin 800 mg tablet 800 mg PO BEDTIME as directe d #14 12/25/24 tabs bupropion HCl 100 mg tablet,12 hr 100 mg PO BID as dir ected #60 tabs 12/29/24 sustained-release gabapentin 400 mg capsule 400 mg PO TID #90 caps 12/29 prazosin 2 mg capsule 4 mg (2 x 2 mg) PO BEDTIME 3 0 days 12/29/24 #60 caps trazodone 100 mg tablet 200 - 300 mg (2 - 3 x 100 mg ) PO 12/29/24 BEDTIME PRN sleep #45 tabs chlorpromazine 25 mg tablet 50 - 75 mg (2 - 3 x 25 mg) PO 01/05/25 BEDTIME PRN insomnia #30 tabs Allergies Allergy/AdvReac Type Severity Reaction Status Date / Time hydromorphone Allergy Intermediate Rash Verified 01/06/25 10:37 acyclovir Allergy Unknown Unknown Verified 01/06/25 10:37 insect venom (INSECT BITES) Allergy Unknown Difficulty Verified 01/06/25 10:37 Breathing sulfamethoxazole (From Allergy Unknown Anaphylaxis Verified 01/06/25 10:37 BACTRIM) trimethoprim (From BACTRIM) Allergy Unknown Anaphylaxis Verified 01/06/25 10:37 Penicillins (PCN) Allergy Rash Verified 01/06/25 10:37 Review of Systems Review of Systems as per hpi Yes all other systems are reviewed and are negative Constitutional: Reports as per HPI [facility] Past Medical History Medical History (Updated 01/06/25 @ 15:42 by Nieves Manrique NP) Mild sleep apnea Bipolar I disorder, most recent episode (or current) depressed FH: total knee replacement Hx of migraines Osteoarthritis of lower back Lumbar herniated disc HTN (hypertension) Diabetes Substance dependence, daily use Morbid obesity with BMI of 40.0-44.9, adult Lumbar herniated disc Trigger finger Carpal tunnel syndrome Bowel obstruction Abdominal wall ulcer Hypertension LGSIL on Pap smear of cervix PTSD (post-traumatic stress disorder) Cocaine abuse Baclofen overdose Bipolar 1 disorder, manic, moderate Alcohol abuse Substance abuse Psychiatric diagnosis Hypertension Surgical History History of total knee replacement (TKR) H/O colonoscopy H/O gastric sleeve History of ankle surgery History of carpal tunnel surgery of right wrist Total knee replacement status H/O removal of cyst Gastric bypass status for obesity Hx of tubal ligation History of stress incontinence procedure using tension free vaginal tape History of knee replacement procedure of right knee History of cholecystectomy History of ankle surgery Family History Family History Family/Other Breast cancer Maternal Aunt Cervical cancer Mother Stomach cancer Social History Social History Household Members: Friend(s) and None Household Members Other:: lives by self Housing: Apartment Do you presently have visiting nurse or other home services: Yes ([facility]) Alcohol intake: former Comment: Pt's new discharge date is possibly 01/02/25 Patient Tobacco Use Status: Current everyday Tobacco user Tobacco use type: Cigarette Cigarette Packs Per Day: 0.5 Cigarettes Per Day: 10.0 Years Smoked: 34 e-Cigarette/Vaping Use: Currently Using Second Hand Smoke Exposure: No Substance Use Type: Marijuana Advance Directives: Yes Advance Directives on File: Yes Advance Directives Date on File: 03/18/21 Do you have a plan to hurt others: No Plan service: No 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al status: unemployed 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 handed/ [employer] Sexual orientation: Bisexual Physical Exam ED Vital Signs: Vital Signs - 24 hr 01/06/25 10:36 01/06/25 13:35 01/06/25 13:36 Temperature 97 F Pulse Rate 71 80 Respiratory Rate 18 18 Blood Pressure 122/58 L 146/85 H 146/85 H Pulse Oximetry 98 96 Oxygen Delivery Method Room Air Room Air BMI result Body Mass Index 31.5 Vital signs have been reviewed and appear to be correct. Blood pressure normal. Heart rate normal. Respiratory rate normal. Temperature normal. Oxygen saturation normal. Const General: cooperative, healthy appearing and no acute distress Orientation/consciousness: oriented to person, oriented to place, oriented to time and patient oriented x3 Limitations: no limitations HENMT Head: Yes normocephalic and Yes atraumatic Ears: external ears normal General nose exam: Normal external nose present Face and sinus: Yes face symmetric Mouth: oropharynx normal and moist mucous membranes Throat: Yes uvula midline Eyes Pupils: Equal, round and reactive pupils present Neck Neck: Yes normal visual inspection and Yes supple Resp Effort & Inspection: normal respiratory effort and able to speak in complete sentences Auscultation: clear to auscultation bilaterally Cardio Rate: regular rate Rhythm: regular rhythm Heart sounds: S1 normal heart sound present and S2 normal heart sound present GI Palpation (GI): Soft to palpation, Tenderness to palpation present (GI) in the epigastrum, no guarding and No Rebound tenderness present Auscultation: normoactive bowel sounds General: Yes no CVA tenderness Back/Spine/Pelvis Back: no CVA tenderness Skin General skin exam: elasticity normal and turgor normal Neuro General: oriented to person, oriented to place, oriented to time, patient oriented x3, moves all extremities, no focal motor deficits and CN's II-XI intact bilaterally Cranial nerves: Yes Equal, round and reactive pupils present Cognition (Neuro): normal cognition Extrem General: Yes full ROM, Yes no pedal edema and Yes no calf tenderness Psych Mental Status: mental status grossly normal Affect: normal affect Thought process: Normal thought process present Course Course Course Narrative: This is an RME: Additional HPI, ROS, PE not included below will be deferred to primary provider. RME assessment and note performed by: Aurea Brandt PA-C This is a 26-cnek-osz-female, with a hx of bipolar disorder, ADHD, herniated discs, PTSD, hypertension and substance use disorder, who presents emergency department with concerns of constipation for the last 3 weeks. Hx of SBO. She states that she has had small bowel movements, last 1 was 2 days ago. History of gastric bypass and cholecystectomy. Previously on Zepbound, has been without it for 2 weeks. She has tried bisacodyl, metamucil, miralax and mag citrate without any relief. No fevers or chills. Does endorse 1 episode of vomiting this morning after drinking water. Hypoactive bowel sounds present. Abdomen is soft, mild tenderness palpation in the suprapubic region and periumbilical region. Plan: Labs, KUB, further ER eval needed Medical Decision Making Medical Decision Making MDM Narrative: Patient is a 49-year-old female with history of bipolar disorder, ADHD, herniated discs, PTSD, hypertension and substance use disorder, bowel obstruction who presents with approximately 3?4 weeks of constipation and intermittent abdominal pain. On exam patient is awake, A+Ox3, VS WNL, afebrile, normal neurological exam without focal deficits, physical exam findings as above. Given reported symptoms and physical exam findings, initial differential includes but is not limited to Constipation, bowel obstruction, perforation, abscess, electrolyte abnormality, dehydration, UTI. Labs notable for no leukocytosis, normal transaminases and T bili. CT A/P with PO contrast notable for no evidence of obstruction. My interpretation is in agreement with the radiologist's interpretation. Patient was able to tolerate oral contrast without difficulty. Results discussed with patient and all questions answered. Discussed with the patient that she can try over the counter magnesium citrate or senna. Recommended scheduling a follow up appointment with GI that she has seen in the past. Return precautions discussed. Patient verbalized understanding of and agreement with plan. Differential Diagnosis Differential Diagnoses: The differential diagnosis associated with the presentation includes as per [facility] Admission/Observation Consideration of admission/observation: Escalation of care including admission/observation considered Patient would have been admitted to the hospital and transferred to appropriate facility had their clinical presentation warranted hospital admission. Lab Data [facility] Lab Attestation statement: I reviewed the patient's lab results. as per [facility] 01/06/25 11:06 01/06/25 11:06 Labs: Lab Results 01/06/25 Range/Units 11:06 WBC 5.6 (4.8-10.8) X10*3/uL RBC 4.49 (4.20-5.50) X10*6/uL Hgb 11.1 L (12.0-16.0) g/dl Hct 35.2 L (37.0-47.0) % MCV 78.4 L (80.0-98.0) fL MCH 24.7 L (27.0-33.0) pg MCHC 31.5 (31.0-35.0) g/dl RDW 12.5 (11.0-16.0) % Plt Count 251 (160-400) X10*3/uL MPV 9.8 (9.4-12.3) fL Immature Gran % (Auto) 0.2 (0.0-0.4) % Neut % (Auto) 60.6 (45-73) % Lymph % (Auto) 29.9 (20-40) % Bullitt % (Auto) 6.3 (2-11) % Eos % (Auto) 2.5 (0-4) % Baso % (Auto) 0.5 (0-2) % Lymph # (Auto) 1.7 (1.2-4.9) X10*3/uL Bullitt # (Auto) 0.4 (0.1-1.2) X10*3/uL Eos # (Auto) 0.1 (0.0-0.4) X10*3/uL Baso # (Auto) 0.0 (0.0-0.2) X10*3/uL Abs Immat Gran (auto) 0.01 (0.00-0.03) X10*3/uL Absolute Neuts (auto) 3.4 (2.0-8.3) x10*3/uL Absolute Nucleated RBC 0.000 (0.0-0.012) X10*3/uL Nucleated RBC % (auto) 0.0 (0.0-0.2) /100WBC Sodium 136 (135-145) mmol/L Potassium 4.1 (3.3-5.1) mmol/L Chloride 101 (96-108) mmol/L Carbon Dioxide 27 (22-29) mmol/L Anion Gap 12 (12-20) BUN 16 (9-16) mg/dL Creatinine 0.74 (0.5-1.4) mg/dL Estim Creat Clear Calc 90.9 Estimated GFR > 60 Random Glucose 79 (60-115) mg/dL Calcium 9.7 (8.4-10.2) mg/dL Magnesium 2.1 (1.6-2.6) mg/dL Total Bilirubin 0.6 (0.0-1.0) mg/dL Direct Bilirubin 0.2 (0.0-0.5) mg/dL AST 27 (5-31) U/L ALT 28 (0-31) U/L Alkaline Phosphatase 85 (39-117) U/L Troponin I High Sens < 2.7 (<3.5-17.0) ng/L Total Protein 7.2 (6.5-8.0) g/dL Albumin 4.5 (3.5-5.0) g/dL Lipase 36 (8-78) U/L Beta HCG, Quant < 2 mIU/mL Independent Interpretation I performed an independent interpretation of an: CT Scan Interpretation: CT abdomen pelvis with p.o. contrast notable for no evidence of obstruction. Radiology Impression Discussion of test interpretation with radiology: I have reviewed the radiologist's reading. Radiologist Impression: CT/CT abdomen pelvis w IV con IMPRESSION: Status post Melissa-en-Y procedure without intestinal obstruction pattern. Status post cholecystectomy with questionable stricture of the central body. Spondylosis, moderate to severe with scoliosis at L4-5. Fleischner guidelines were followed. External Record Review External record reviewed: Inpatient record, Office record and Outpatient record Medications Administered Discontinued Medications Generic Name Dose Route Start Last Admin Trade Name Freq PRN Reason Stop Dose Admin Diatrizoate Meglum/Diatrizoate Sod 30 ml 01/06/25 15:10 01/06/25 15:10 Diatrizoate Meglumine, Sodium 30 Ml Solution PO 01/06/25 15:11 30 ml ONCE ONE Administration Iohexol 100 ml 01/06/25 15:10 01/06/25 15:10 Iohexol 350 Mg/Ml 100 Ml Infus..Btl IV 01/06/25 15:11 85 ml ONCE ONE Administration Ondansetron HCl 4 mg 01/06/25 13:28 01/06/25 13:51 Ondansetron Hcl 4 Mg/2 Ml Vial IVPUSH 01/06/25 13:29 4 mg ONCE ONE Administration Discharge Plan Discharge Clinical Impression: Constipation Patient Disposition: Home, Self-Care Instructions: Constipation (DC) Additional Instructions: You were evaluated in the emergency department today for constipation and vomiting. Your labs were reassuring. Your CT scan did not show evidence of obstruction. We recommend that you use [id number] magnesium citrate or senna. We also recommend that you schedule follow up appointment with a python java developer. You should schedule follow up appointment with your primary care provider as well. Return to the emergency department if you develop worsening pain, persistent vomiting, blood in your vomit or stool, fever 100.4? F or greater or any other new or concerning symptoms. Prescriptions: No Action cyclobenzaprine 10 mg Tablet 10 mg PO TID Rx Instructions: Patient states she takes PRN. Last filled March 2024. propranolol 10 mg tablet See Rx Instructions .ROUTE .COMPLEX Qty: 120 0RF Rx Instructions: take 2 tablets po daily in AM, take one tablet po daily at noon, take one tablet po daily at 5pm multivitamin Tablet 1 tab PO DAILY omeprazole 20 mg capsule,delayed release(DR/EC) 20 mg PO BID docusate sodium 100 mg capsule 100 mg PO BID PRN (Reason: Constipation) Rx Instructions: Patient takes PRN. cholecalciferol (vitamin D3) [Vitamin D3] 50 mcg (2,000 unit) tablet 50 mcg PO DAILY ferrous gluconate 324 mg (36 mg iron) Tablet 324 mg PO DAILY Invega Sustenna 234 mg/1.5 mL syringe 234 mg IM QMONTH thiamine HCl (vitamin B1) [Vitamin B-1] 50 mg Tablet 50 mg PO DAILY Zepbound 5 mg/0.5 mL Pen Injector 5 mg SUBCUT QWEEK lisinopril 30 mg Tablet 10 mg PO DAILY Qty: 10 0RF Patient Comments: Decreased to 30 mg from 40 mg per patient and VNA. cariprazine 1.5 mg capsule 1.5 mg PO DAILY 14 Days Qty: 14 0RF gabapentin 800 mg tablet 800 mg PO BEDTIME Qty: 14 0RF trazodone 100 mg tablet 200 - 300 mg PO BEDTIME PRN (Reason: sleep) Qty: 45 0RF prazosin 2 mg capsule 4 mg PO BEDTIME 30 Days Qty: 60 0RF bupropion HCl 100 mg tablet sustained-release 12 hr 100 mg PO BID Qty: 60 0RF Rx Instructions: in AM and lunch gabapentin 400 mg capsule 400 mg PO TID Qty: 90 0RF Rx Instructions: take in AM/ noon / 5pm chlorpromazine 25 mg tablet 50 - 75 mg PO BEDTIME PRN (Reason: insomnia) Qty: 30 0RF Referrals: [facility] [Provider Group, Gastroenterology] Clinical Impression: Constipation Print Language: Sammarinese
--- NOTE | 2025-01-06 10:40 | ECG_ITS ---
Test Reason : abd pain Blood Pressure : */* mmHG Vent. Rate : 73 BPM Atrial Rate : 73 BPM P-R Int : 176 ms QRS Dur : 88 ms QT Int : 390 ms P-R-T Axes : 30 4 15 degrees QTcB Int : 429 ms Normal sinus rhythm Normal ECG When compared with ECG of 15-Jun-2024 22:05, Nonspecific T wave abnormality, worse in Anterior leads Referred By: Aurea Brandt Electronically Signed By: BOWEN RAMOS
[2025-01-06 11:13] LABS: MANUAL DIFF FLAG NO
[2025-01-06 11:15] LABS: Hematocrit 35.2 % (37.0-47.0); Hemoglobin 11.1 g/dl (12.0-16.0); Imm Gran Abs Auto 0.01 X10*3/uL (0.00-0.03); Imm Gran Pct Auto 0.2 % (0.0-0.4); Lymphocytes Absolute Auto 1.7 X10*3/uL (1.2-4.9); Mean Corpuscular HGB Conc 31.5 g/dl (31.0-35.0); Mean Corpuscular Hemoglobin 24.7 pg (27.0-33.0); Mean Corpuscular Volume 78.4 fL (80.0-98.0); NRBC Abs Auto 0.000 X10*3/uL (0.0-0.012); NRBC Pct Auto 0.0 /100WBC (0.0-0.2); Platelet Count 251 X10*3/uL (160-400); Red Blood Count 4.49 X10*6/uL (4.20-5.50); White Blood Count 5.6 X10*3/uL (4.8-10.8)
[2025-01-06 11:35] LABS: Alanine Aminotransferase 28 U/L (0-31); Albumin Level 4.5 g/dL (3.5-5.0); Alkaline Phosphatase 85 U/L (39-117); Anion Gap 12 (12-20); Aspartate Amino Transferase 27 U/L (5-31); Blood Urea Nitrogen 16 mg/dL (9-16); Calcium 9.7 mg/dL (8.4-10.2); Carbon Dioxide 27 mmol/L (22-29); Chloride 101 mmol/L (96-108); Creatinine Clr Calc Pharmacy 90.9; Estimated Glomerular Filt Rate > 60; Lipase 36 U/L (8-78); Magnesium 2.1 mg/dL (1.6-2.6); Potassium 4.1 mmol/L (3.3-5.1); Sodium 136 mmol/L (135-145); Total Protein 7.2 g/dL (6.5-8.0)
[2025-01-06 11:36] LABS: Troponin-I High Sensitivity < 2.7 ng/L (<3.5-17.0)
--- NOTE | 2025-01-06 12:41 | PC.NURSE ---
Po trial in progress per
[2025-01-06 13:35] VITALS: BP 146/85; PULSE 80; RESP 18; O2SAT 96
[2025-01-06 13:36] VITALS: BP 146/85
[2025-01-06] MEDS: iohexoL 350 MG/ML 100 ML INFUS..BTL IV (15:10)
[2025-01-06 15:59] VITALS: BP 146/85; PULSE 65; RESP 16; TEMP 37.1; O2SAT 95
== END 2025-01-06 16:00 | disposition home or self-care (01) ==
PROVIDERS: Physician Assistant Medical; Emergency Provider Emergency Medicine; PCP General Practice
DX: K59.00 Constipation, unspecified (principal); I10 Essential (primary) hypertension; E11.9 Type 2 diabetes mellitus without complications; Z98.84 Bariatric surgery status; Z90.49 Acquired absence of other specified parts of digestive tract; Z88.0 Allergy status to penicillin; Z88.2 Allergy status to sulfonamides; Z88.5 Allergy status to narcotic agent; Z88.8 Allergy status to other drugs, medicaments and biological substances
CPT/HCPCS: 36415; 74018; 74177; 80048; 80076; 83690; 83735; 84484; 84702; 85025; 93005; 96374; 99284; 99285; J2405; Q9967

== ENCOUNTER → 2025-01-06 10:40 | Outpatient (BNV) | payer OTHER, SELFPAY | PROVIDERS: PCP General Practice; Visit Provider Radiology Diagnostic Radiology | DX: K59.00 Constipation, unspecified (principal); R10.9 Unspecified abdominal pain; R11.10 Vomiting, unspecified; M47.816 Spondylosis without myelopathy or radiculopathy, lumbar region | CPT/HCPCS: 74018; 74177 ==

== ENCOUNTER → 2025-01-06 10:40 | Outpatient (BNV) | payer OTHER, SELFPAY | PROVIDERS: Emergency Provider Emergency Medicine; PCP General Practice; Visit Provider Internal Medicine | DX: R10.9 Unspecified abdominal pain (principal) | CPT/HCPCS: 93010 ==

== ENCOUNTER 2025-01-12 08:15 | Outpatient (RCR) | payer OTHER, SELFPAY ==
[2024-12-16 11:32] VITALS: BMI 33.5
[2024-12-16 12:53] VITALS: BP 88/60; PULSE 72; TEMP 37.2
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
[2024-12-17 11:56] VITALS: BP 92/64; PULSE 72
--- NOTE | 2024-12-17 13:49 | PC.NURSE ---
Reviewed patient medication list with Mandi FERRER. NABIL stated that Atiya has a history of using multiple pharmacies which made her medication list challenging however Mandi reports that she was able to get Atiya to use one pharmacy which is [facility].
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
--- NOTE | 2024-12-25 10:01 | HO.PHPPROGNO ---
Subjective Subjective Date of Service: 12/25/24 Reason For Visit: bipolar,PTSD Interim History: Patient was seen in follow-up today. She is engaged in [facility] and attending groups. Eating and sleeping adequately. Continues to be substance free. No SI. No hypomanic behaviors. Current medications are individually reviewed and maintained. A 1 month supply of Vraylar, gabapentin 800 mg, trazodone 150 mg and prazosin 2 mg were sent in to [facility]. No changes were made Review of Systems Review of Systems Yes all other systems are reviewed and are negative Mental Status Exam Mental Status Exam Narrative: In today's visit she is alert, oriented and pleasant. Soft-spoken speech. Moderate eye contact. Affect is appropriate and constricted. No acute signs of psychosis, hypomania. No delusions. No SI upon inquiry. Cognitively is intact on observation. Judgment is intact. She moves all limbs. No gait abnormalities Diagnostics Vital Signs (24Hr): BMI result Body Mass Index 33.5 Assessment & Plan Assessment & Plan (1) Bipolar 1 disorder, depressed, moderate: Status: Acute Code(s): F31.32 - Bipolar disorder, current episode depressed, moderate Plan Continue current regimen and plans. Guardian/Caregiver educated on: medication risk/benefits Certification I certify that partial hospital treatment is medically necessary due to the symptoms and problems resulting from the patient's mental illness and the failure to treat the patient at the partial hospital level of care would likely result in the patient requiring inpatient psychiatric care which could not be prevented at a less intensive level of care. Total time managing care of this patient today ____ minutes. Discharge Plan Discharge Attending provider: Mirtha Nagy Medications: Continued cyclobenzaprine 10 mg Tablet 10 mg PO TID Rx Instructions: Patient states she takes PRN. Last filled March 2024. propranolol 10 mg tablet See Rx Instructions .ROUTE .COMPLEX Qty: 120 0RF Rx Instructions: take 2 tablets po daily in AM, take one tablet po daily at noon, take one tablet po daily at 5pm omeprazole 20 mg capsule,delayed release(DR/EC) 20 mg PO BID docusate sodium 100 mg capsule 100 mg PO BID PRN (Reason: Constipation) Rx Instructions: Patient takes PRN. cholecalciferol (vitamin D3) [Vitamin D3] 50 mcg (2,000 unit) tablet 50 mcg PO DAILY ferrous gluconate 324 mg (36 mg iron) Tablet 324 mg PO DAILY Invega Sustenna 234 mg/1.5 mL syringe 234 mg IM QMONTH thiamine HCl (vitamin B1) [Vitamin B-1] 50 mg Tablet 50 mg PO DAILY Zepbound 5 mg/0.5 mL Pen Injector 5 mg SUBCUT QWEEK bupropion HCl 100 mg tablet sustained-release 12 hr 100 mg PO QAM Qty: 30 0RF prazosin 2 mg capsule 2 mg PO BEDTIME 14 Days Qty: 14 0RF cariprazine 1.5 mg capsule 1.5 mg PO DAILY 14 Days Qty: 14 0RF gabapentin 800 mg tablet 800 mg PO BEDTIME Qty: 14 0RF Changed lisinopril 30 mg Tablet 10 mg PO DAILY Qty: 10 0RF Patient Comments: Decreased to 30 mg from 40 mg per patient and VNA. trazodone 50 mg tablet 150 mg PO QPM 14 Days Qty: 42 0RF Discontinued prazosin 5 mg capsule 5 mg PO BEDTIME 30 Days Qty: 30 0RF topiramate 50 mg tablet 50 mg PO BEDTIME Qty: 30 0RF baclofen 10 mg tablet 10 mg PO DAILY No Action multivitamin Tablet 1 tab PO DAILY gabapentin 400 mg capsule 400 mg PO Q6H topiramate [Topamax] 50 mg Tablet 50 mg PO BEDTIME Patient Comments: VNA stated patient takes this medication. Rx Instructions: Last filled 12/15/24. Patient stated she does not take this medication, VNA stated she just filled the medication and patient is taking it. Print Language: Scottish
--- NOTE | 2024-12-29 22:51 | HO.PHPPROGNO ---
Subjective Subjective Date of Service: 12/29/24 Reason For Visit: bipolar,PTSD Interim History: Patient was seen in follow-up today. Reports she has only been sleeping for 3 hours at night. Trazodone now up to 150 mg as well as gabapentin at 800 mg at night and has had only marginal improvement since med changes. Mood is getting better, calmer since we added back the Vraylar. SOme anxiety. Propranolol helps with anxiety and was feeling better in the AM on 20 mg, no side effects t 20 mg so we will return dose. Continues to be substance free. No SI. No hypomanic behaviors. Current medications are individually reviewed and maintained. Medication Compliance: Yes Side effects from medications: No Attending Groups: Yes Review of Systems Acute medical concerns: No Review of Systems Review of Systems Yes all other systems are reviewed and are negative Mental Status Exam Mental Status Exam Narrative: Alert, oriented, in no acute distress. Calm, cooperative. Mood anxious, tired, affect appropriate. Speech normal. Thought process linear, coherent.. Thought content related to stressors, denies any helplessness, hopelessness or SI.? No aggressive ideation or HI. No paranoia or delusional content elicited. No evidence of psychosis. Insight and judgment fair-good. Diagnostics Vital Signs (24Hr): BMI result Body Mass Index 33.5 Assessment & Plan Assessment & Plan (1) Bipolar 1 disorder, depressed, moderate: Status: Acute Code(s): F31.32 - Bipolar disorder, current episode depressed, moderate Plan 49 yo with Bipolar I Disorder, PTSD, complex PMH including HTN, chronic pain, obesity as well as hx of polysubstance addiction including cocaine, OUD in past), recently discont cannabis and alcohol last drink 2 months ago Will add back Vraylar 1.5 mg (also consider bumping dose up katia for that week vs. prn paliperidone po accessible to take if delay REEDER or discuss with VNA services) Pt also noted to have low blood pressure and feeling tired and sometimes dizzy. She has a history of hyponatremia. WIll order blood work to check Na level and in meantime will lower medications that affect her BP (will lower propranolol and prazosin for now) continue PHP continue Vraylar 1.5 mg qd continue Invega Sustenna 234 mg IM q monthly continue Wellbutrin SR 100 mg qam continue gabapentin 400 mg TID (AM, lunch, 5pm) continue gabapentin 800 mg qhs return propranolol to 20 mg/10 mg/10 mg continue prazosin 4 mg qhs increase trazodone to 200 mg qhs alternatively will trial Thorazine 25-50 mg qhs prn (in lieu of trazodone) continue regular medications: Zepbound 5 mg subq weekly, lisinopril 10 mg, omeprazole 20 mg, midoxinil, docusate sodium cont iron 325 mg qd cont thiamine 100 mg qd cont vitamin D3 qd Routine lab work ordered as indicated - will check electrolytes, nutritional panel EKG, routine for baseline QTc for medication considerations as indicated UDS as indicated VS reviewed: abrefile, BP 94/60;?72 bpm Continue to monitor Patient educated on: diagnosis and medication risk/benefits Informed Consent: understands Reason for contiued partial hosp. stay Substantial Risk for: rapid decompensation and med/psych decompensation Certification I certify that partial hospital treatment is medically necessary due to the symptoms and problems resulting from the patient's mental illness and the failure to treat the patient at the partial hospital level of care would likely result in the patient requiring inpatient psychiatric care which could not be prevented at a less intensive level of care. Total time managing care of this patient today __30__ minutes. Discharge Plan Discharge Attending provider: Mirtha Nagy Medications: Continued omeprazole 20 mg capsule,delayed release(DR/EC) 20 mg PO BID docusate sodium 100 mg capsule 100 mg PO BID PRN (Reason: Constipation) Rx Instructions: Patient takes PRN. thiamine HCl (vitamin B1) [Vitamin B-1] 50 mg Tablet 50 mg PO DAILY cyclobenzaprine 10 mg Tablet 10 mg PO TID Qty: 90 0RF Rx Instructions: Patient states she takes PRN. Last filled March 2024. gabapentin 800 mg tablet 800 mg PO BEDTIME Qty: 30 0RF Invega Sustenna 234 mg/1.5 mL syringe 234 mg IM QMONTH Qty: 1.5 0RF cariprazine 1.5 mg capsule 1.5 mg PO DAILY 30 Days Qty: 30 0RF propranolol 10 mg tablet See Rx Instructions .ROUTE .COMPLEX Qty: 120 0RF Rx Instructions: take 2 tablets po daily in AM, take one tablet po daily at noon, take one tablet po daily at 5pm Changed bupropion HCl 100 mg tablet sustained-release 12 hr 100 mg PO BID Qty: 60 0RF Rx Instructions: in AM and lunch gabapentin 400 mg capsule 400 mg PO TID Qty: 90 0RF Rx Instructions: take in AM/ noon / 5pm trazodone 100 mg tablet 200 mg PO BEDTIME PRN (Reason: sleep) Qty: 60 0RF chlorpromazine 25 mg tablet 75 mg PO BEDTIME PRN (Reason: insomnia) Qty: 90 0RF Rx Instructions: alternating with trazodone as prn sleep prazosin 2 mg capsule 4 mg PO BEDTIME 30 Days Qty: 60 0RF Discontinued prazosin 5 mg capsule 5 mg PO BEDTIME 30 Days Qty: 30 0RF topiramate 50 mg tablet 50 mg PO BEDTIME Qty: 30 0RF lisinopril 30 mg Tablet 20 mg PO DAILY Qty: 10 0RF Patient Comments: Decreased to 30 mg from 40 mg per patient and VNA. trazodone 50 mg tablet 50 - 100 mg PO QPM baclofen 10 mg tablet 10 mg PO DAILY topiramate [Topamax] 50 mg Tablet 50 mg PO BEDTIME Patient Comments: VNA stated patient takes this medication. Rx Instructions: Last filled 12/15/24. Patient stated she does not take this medication, VNA stated she just filled the medication and patient is taking it. No Action calcium carbonate [Calcium 600] 600 mg calcium (1,500 mg) tablet 600 mg PO BID 90 Days Qty: 180 3RF multivitamin Tablet 1 tab PO DAILY baclofen 10 mg tablet 10 mg PO TID hydrocortisone 2.5 % cream topical BID polyethylene glycol 3350 17 gram/dose powder 17 g PO DAILY ferrous gluconate 324 mg (38 mg iron) tablet 324 mg PO QAM cholecalciferol (vitamin D3) [Vitamin D3] 50 mcg (2,000 unit) capsule 50 mcg PO DAILY Zepbound 12.5 mg/0.5 mL pen injector 12.5 mg subcut QWEEK bisacodyl [Dulcolax (bisacodyl)] 5 mg tablet,delayed release (DR/EC) 10 mg PO BEDTIME Qty: 180 4RF polyethylene glycol 3350 [Miralax] 17 gram/dose powder 238 g PO ONCE Qty: 238 0RF Rx Instructions: As directed by gastroenterology department at [facility] Stand Alone Forms: Patient Portal Discharge page Patient Education: Bipolar Disorder (ED), Bipolar Disorder (DC), Insomnia (ED), Insomnia (DC) Print Language: Czech
--- NOTE | 2025-01-05 20:05 | P.PNPSP_ITS ---
Subjective Subjective Date of Service: 01/05/25 Reason For Visit: bipolar,PTSD Interim History: Patient was seen in follow-up today. Patient slightly better but inconsistent sleep with trazodone 200 mg, she did sleep 5 hours last night but only if tired will she get 4-5 hrs but some nights she is not tired and was unable to sleep beyond 2 or 3 hours on trazodone. Thorazine was not at pharmacy and she would still like to try this for sleep. Housing court appointment on and other appointment on Sun. Continues to be substance free. No SI. No hypomanic behaviors. Current medications are individually reviewed and maintained. Medication Compliance: Yes Side effects from medications: No Attending Groups: Yes Review of Systems Acute medical concerns: No Review of Systems Review of Systems Yes all other systems are reviewed and are negative Mental Status Exam Mental Status Exam Narrative: Alert, oriented, in no acute distress. Calm, cooperative. Mood anxious, tired, affect appropriate. Speech normal. Thought process linear, coherent.. Thought content related to stressors, denies any helplessness, hopelessness or SI.? No aggressive ideation or HI. No paranoia or delusional content elicited. No evidence of psychosis. Insight and judgment fair-good. Diagnostics Vital Signs (24Hr): BMI result Body Mass Index 33.5 Assessment & Plan Assessment & Plan (1) Bipolar 1 disorder, depressed, moderate: Status: Acute Code(s): F31.32 - Bipolar disorder, current episode depressed, moderate Plan 49 yo with Bipolar I Disorder, PTSD, complex PMH including HTN, chronic pain, obesity as well as hx of polysubstance addiction including cocaine, OUD in past), recently discont cannabis and alcohol last drink 2 months ago Will add back Vraylar 1.5 mg (also consider bumping dose up katia for that week vs. prn paliperidone po accessible to take if delay RE[facility]ER or discuss with [facility] services) Pt also noted to have low blood pressure and feeling tired and sometimes dizzy. She has a history of hyponatremia. WIll order blood work to check Na level and in meantime will lower medications that affect her BP (will lower propranolol and prazosin for now) continue PHP continue Vraylar 1.5 mg qd continue Invega Sustenna 234 mg IM q monthly continue Wellbutrin SR 100 mg qam continue gabapentin 400 mg TID (AM, lunch, 5pm) continue gabapentin 800 mg qhs continue propranolol 20 mg/10 mg/10 mg continue prazosin 4 mg qhs hold trazodone 200 mg qhs start Thorazine 25-50 mg qhs prn (in lieu of trazodone) continue regular medications: Zepbound 5 mg subq weekly, lisinopril 10 mg, omeprazole 20 mg, midoxinil, docusate sodium cont iron 325 mg qd cont thiamine 100 mg qd cont vitamin D3 qd Routine lab work ordered as indicated - will check electrolytes, nutritional panel EKG, routine for baseline QTc for medication considerations as indicated UDS as indicated VS reviewed: rafaelefiesha, BP 94/60;?72 bpm Continue to monitor Patient educated on: diagnosis and medication risk/benefits Informed Consent: understands Reason for contiued partial hosp. stay Substantial Risk for: med/psych decompensation Certification I certify that partial hospital treatment is medically necessary due to the symptoms and problems resulting from the patient's mental illness and the failure to treat the patient at the partial hospital level of care would likely result in the patient requiring inpatient psychiatric care which could not be prevented at a less intensive level of care. Total time managing care of this patient today __30__ minutes. Discharge Plan Discharge Attending provider: Mirtha Nagy Medications: Continued omeprazole 20 mg capsule,delayed release(DR/EC) 20 mg PO BID docusate sodium 100 mg capsule 100 mg PO BID PRN (Reason: Constipation) Rx Instructions: Patient takes PRN. thiamine HCl (vitamin B1) [Vitamin B-1] 50 mg Tablet 50 mg PO DAILY cyclobenzaprine 10 mg Tablet 10 mg PO TID Qty: 90 0RF Rx Instructions: Patient states she takes PRN. Last filled March 2024. gabapentin 800 mg tablet 800 mg PO BEDTIME Qty: 30 0RF Invega Sustenna 234 mg/1.5 mL syringe 234 mg IM QMONTH Qty: 1.5 0RF cariprazine 1.5 mg capsule 1.5 mg PO DAILY 30 Days Qty: 30 0RF propranolol 10 mg tablet See Rx Instructions .ROUTE .COMPLEX Qty: 120 0RF Rx Instructions: take 2 tablets po daily in AM, take one tablet po daily at noon, take one tablet po daily at 5pm Changed bupropion HCl 100 mg tablet sustained-release 12 hr 100 mg PO BID Qty: 60 0RF Rx Instructions: in AM and lunch gabapentin 400 mg capsule 400 mg PO TID Qty: 90 0RF Rx Instructions: take in AM/ noon / 5pm trazodone 100 mg tablet 200 mg PO BEDTIME PRN (Reason: sleep) Qty: 60 0RF chlorpromazine 25 mg tablet 75 mg PO BEDTIME PRN (Reason: insomnia) Qty: 90 0RF Rx Instructions: alternating with trazodone as prn sleep prazosin 2 mg capsule 4 mg PO BEDTIME 30 Days Qty: 60 0RF Discontinued prazosin 5 mg capsule 5 mg PO BEDTIME 30 Days Qty: 30 0RF topiramate 50 mg tablet 50 mg PO BEDTIME Qty: 30 0RF lisinopril 30 mg Tablet 20 mg PO DAILY Qty: 10 0RF Patient Comments: Decreased to 30 mg from 40 mg per patient and VNA. trazodone 50 mg tablet 50 - 100 mg PO QPM baclofen 10 mg tablet 10 mg PO DAILY topiramate [Topamax] 50 mg Tablet 50 mg PO BEDTIME Patient Comments: VNA stated patient takes this medication. Rx Instructions: Last filled 12/15/24. Patient stated she does not take this medication, VNA stated she just filled the medication and patient is taking it. No Action calcium carbonate [Calcium 600] 600 mg calcium (1,500 mg) tablet 600 mg PO BID 90 Days Qty: 180 3RF multivitamin Tablet 1 tab PO DAILY baclofen 10 mg tablet 10 mg PO TID hydrocortisone 2.5 % cream topical BID polyethylene glycol 3350 17 gram/dose powder 17 g PO DAILY ferrous gluconate 324 mg (38 mg iron) tablet 324 mg PO QAM cholecalciferol (vitamin D3) [Vitamin D3] 50 mcg (2,000 unit) capsule 50 mcg PO DAILY Zepbound 12.5 mg/0.5 mL pen injector 12.5 mg subcut QWEEK bisacodyl [Dulcolax (bisacodyl)] 5 mg tablet,delayed release (DR/EC) 10 mg PO BEDTIME Qty: 180 4RF polyethylene glycol 3350 [Miralax] 17 gram/dose powder 238 g PO ONCE Qty: 238 0RF Rx Instructions: As directed by gastroenterology department at [facility] Stand Alone Forms: Patient Portal Discharge page Patient Education: Bipolar Disorder (ED), Bipolar Disorder (DC), Insomnia (ED), Insomnia (DC) Print Language: Canadian
--- NOTE | 2025-01-09 13:14 | HO.PHP ---
PHP staff member reached out to Atiya to receive verbal consent to speak to [facility]. A voicemail was left requesting this, in which Atiya returned the call stating she is providing verbal consent on the clinician's VM.
--- NOTE | 2025-01-09 13:16 | HO.PHP ---
[facility] staff member reached out to [facility] and asked to be transfered to Atiya's med provider, they said that I won't be able to speak to the med provider directly and that they will forward my call to her assistant manager bilingual. [facility] staff member left a VM on her med providers assistance phone line. [facility] staff member asked to have the med provider return a phone call regarding a mutual pt. that will be discharging from our program on Sunday. PHP staff member is awaiting a call back.
--- NOTE | 2025-01-09 13:18 | HO.PHP ---
[facility] staff member reached out to [facility] and asked to speak with the director who oversees the individuals who do medication management. [facility] staff member was forwarded to Lizbeth's VM, in which a VM was left requesting a call back in regards to Atiya who will be discharging from our program Sunday who noted some concerns around continued medication management outside of [facility] and we would like to make sure she has a next appointment scheduled. [facility] staff member is waiting on a call back at this time.
--- NOTE | 2025-01-09 13:29 | HO.PHP ---
[facility] staff member received a call back from Lizbeth through [facility]. Lizbeth disclosed that Michelle?s (Atiya's med provider) glazing department supervisor Dr. Ye had met with her in regards to Atiya?s case, in which they discussed transitioning her case to a new med provider as long as the pt. understands that the new med provider will be assessed and may or may not want to adjust her medications based off of medical necessity. Lizbeth stated that she will be reaching out to [facility] to make her aware of the conversation held with Dr. Ye and if she is okay with moving forward, she will schedule an appointment right away and call the [facility] clinician back.
--- NOTE | 2025-01-09 13:39 | HO.PHP ---
PHP staff member received a call back from Lizbeth through [facility] who provided me with Atiya's new med provider and the appointment date and time. Atiya will be meeting with Franky Cobb on February 09, 2025 at 2 PM via telehealth that she can access through the portal.
--- NOTE | 2025-01-12 20:26 | P.PNPSP_ITS ---
Subjective Subjective Date of Service: 01/12/25 Reason For Visit: bipolar,PTSD Interim History: Patient seen for follow-up, anticipating discharge at the end of program today. I'm calm, I feel really good Patient reports that they are connecting her with an MD provider for her as her current provider feels that her medication regime is more complicated than they are comfortable managing. Gabapentin has been helping with pain. She is feeling good overall, steady. She is getting better sleep and has been taking 50 mg Thorazine and getting 6 hours, and on nights she is tired she instead has been taking trazodone 200 mg *twice this past week, and gets about 5 hours. So as not to consistently need 3 neuroleptics. Invega next due on 02/06. Reports no acute issues or concerns. Medication compliant, medications well- tolerated. Denies any adverse effects.?No s/s of EPS, akithisia. Mood is stable.? Denies any hopelessness or SI. Denies thoughts of harming self or others at this time. Denies any aggressive ideation or HI. Denies any paranoia or AH or VH. Sleep, appetite, energy stable. Medication Compliance: Yes Side effects from medications: No Attending Groups: Yes Review of Systems Acute medical concerns: No Review of Systems Review of Systems Yes all other systems are reviewed and are negative Mental Status Exam Mental Status Exam Narrative: Alert, oriented, in no acute distress. Calm, cooperative. Mood stable, affect appropriate. Speech normal. Thought process linear, coherent, more goal- directed. Thought content related to stressors, future-oriented, denies any helplessness, hopelessness or SI.? No aggressive ideation or HI. No paranoia or delusional content elicited. No evidence of psychosis. Insight and judgment fair-good. Diagnostics Vital Signs (24Hr): BMI result Body Mass Index 33.5 Assessment & Plan Assessment & Plan (1) Bipolar 1 disorder, depressed, moderate: Status: Acute Code(s): F31.32 - Bipolar disorder, current episode depressed, moderate (2) Attention-deficit hyperactivity disorder, unspecified type: Status: Acute Code(s): F90.9 - Attention-deficit hyperactivity disorder, unspecified type Plan Discharge from [facility] Continue regular medications? Refills sent to pharmacy Will defer further medication management to outpatient provider *Safety plan reviewed *Discharge diagnoses, treatment course, discharge plan have been reviewed with patient (including medication regime, medication management, potential side effects) as well as treatment rationale were also revisited *Discharge paperwork signed and given to patient, copy sent for scanning to chart Patient educated on: diagnosis and medication risk/benefits Informed Consent: understands Reason for contiued partial hosp. stay Substantial Risk for: stable for discharge Certification I certify that partial hospital treatment is medically necessary due to the symptoms and problems resulting from the patient's mental illness and the failure to treat the patient at the partial hospital level of care would likely result in the patient requiring inpatient psychiatric care which could not be prevented at a less intensive level of care. Total time managing care of this patient today __30__ minutes. Discharge Plan Discharge Attending provider: Mirtha Nagy Medications: Continued omeprazole 20 mg capsule,delayed release(DR/EC) 20 mg PO BID docusate sodium 100 mg capsule 100 mg PO BID PRN (Reason: Constipation) Rx Instructions: Patient takes PRN. thiamine HCl (vitamin B1) [Vitamin B-1] 50 mg Tablet 50 mg PO DAILY cyclobenzaprine 10 mg Tablet 10 mg PO TID Qty: 90 0RF Rx Instructions: Patient states she takes PRN. Last filled March 2024. gabapentin 800 mg tablet 800 mg PO BEDTIME Qty: 30 0RF Invega Sustenna 234 mg/1.5 mL syringe 234 mg IM QMONTH Qty: 1.5 0RF cariprazine 1.5 mg capsule 1.5 mg PO DAILY 30 Days Qty: 30 0RF propranolol 10 mg tablet See Rx Instructions .ROUTE .COMPLEX Qty: 120 0RF Rx Instructions: take 2 tablets po daily in AM, take one tablet po daily at noon, take one tablet po daily at 5pm Changed bupropion HCl 100 mg tablet sustained-release 12 hr 100 mg PO BID Qty: 60 0RF Rx Instructions: in AM and lunch gabapentin 400 mg capsule 400 mg PO TID Qty: 90 0RF Rx Instructions: take in AM/ noon / 5pm trazodone 100 mg tablet 200 mg PO BEDTIME PRN (Reason: sleep) Qty: 60 0RF chlorpromazine 25 mg tablet 75 mg PO BEDTIME PRN (Reason: insomnia) Qty: 90 0RF Rx Instructions: alternating with trazodone as prn sleep prazosin 2 mg capsule 4 mg PO BEDTIME 30 Days Qty: 60 0RF Discontinued prazosin 5 mg capsule 5 mg PO BEDTIME 30 Days Qty: 30 0RF topiramate 50 mg tablet 50 mg PO BEDTIME Qty: 30 0RF lisinopril 30 mg Tablet 20 mg PO DAILY Qty: 10 0RF Patient Comments: Decreased to 30 mg from 40 mg per patient and VNA. trazodone 50 mg tablet 50 - 100 mg PO QPM baclofen 10 mg tablet 10 mg PO DAILY topiramate [Topamax] 50 mg Tablet 50 mg PO BEDTIME Patient Comments: VNA stated patient takes this medication. Rx Instructions: Last filled 12/15/24. Patient stated she does not take this medication, VNA stated she just filled the medication and patient is taking it. No Action calcium carbonate [Calcium 600] 600 mg calcium (1,500 mg) tablet 600 mg PO BID 90 Days Qty: 180 3RF multivitamin Tablet 1 tab PO DAILY baclofen 10 mg tablet 10 mg PO TID hydrocortisone 2.5 % cream topical BID polyethylene glycol 3350 17 gram/dose powder 17 g PO DAILY ferrous gluconate 324 mg (38 mg iron) tablet 324 mg PO QAM cholecalciferol (vitamin D3) [Vitamin D3] 50 mcg (2,000 unit) capsule 50 mcg PO DAILY Zepbound 12.5 mg/0.5 mL pen injector 12.5 mg subcut QWEEK bisacodyl [Dulcolax (bisacodyl)] 5 mg tablet,delayed release (DR/EC) 10 mg PO BEDTIME Qty: 180 4RF polyethylene glycol 3350 [Miralax] 17 gram/dose powder 238 g PO ONCE Qty: 238 0RF Rx Instructions: As directed by gastroenterology department at [facility] Stand Alone Forms: Patient Portal Discharge page Patient Education: Bipolar Disorder (ED), Bipolar Disorder (DC), Insomnia (ED), Insomnia (DC) Print Language: Haitian
== END 2025-01-12 23:59 | disposition home or self-care (01) ==
LOC: HO.PHPA 08:15
PROVIDERS: Visit Provider Psychiatry & Neurology Psychiatry
DX: F31.32 Bipolar disorder, current episode depressed, moderate (principal); F90.9 Attention-deficit hyperactivity disorder, unspecified type; F43.10 Post-traumatic stress disorder, unspecified; F41.3 Other mixed anxiety disorders; F10.21 Alcohol dependence, in remission; F14.11 Cocaine abuse, in remission; F12.21 Cannabis dependence, in remission; Z91.51 Personal history of suicidal behavior; Z79.899 Other long term (current) drug therapy
CPT/HCPCS: 90791; 90853

== ENCOUNTER 2025-01-19 11:51 | Outpatient (AMB) | payer OTHER, SELFPAY ==
--- NOTE | 2025-01-19 11:52 | A.OFFVIS_ITS ---
Vital Signs 01/19/25 11:59 Height 5 ft 2 in Weight 172 lb BMI 31.5 BP 142/86 H Blood Pressure Location Rt brachial Position Sitting Pulse 86 Pulse Source Pulse Oximeter Pulse Oximetry (%) 97 Oxygen Delivery Method Room Air Intake Visit Reasons: ED FUV - Abd pain. Intake Note: Est pt for mgmt of CIC. ED FUV for abd pain. CC; C/O umbilical abd pain and intermittent constipation and diarrhea. Pt denies any evidence of bleeding at this time. No additional sx or concerns. States that a CT scan was done via ED. Database Programmer Required: No Accompanied by: Self / Same As Patient Allergies hydromorphone Allergy (Intermediate, Verified 01/19/25 11:52) Rash acyclovir Allergy (Unknown, Verified 01/19/25 11:52) Unknown insect venom (INSECT BITES) Allergy (Unknown, Verified 01/19/25 11:52) Difficulty Breathing sulfamethoxazole (From BACTRIM) Allergy (Unknown, Verified 01/19/25 11:52) Anaphylaxis trimethoprim (From BACTRIM) Allergy (Unknown, Verified 01/19/25 11:52) Anaphylaxis Penicillins (PCN) Allergy (Verified 01/19/25 11:52) Rash HPI HPI ED FUV - Abd pain.: Details: LAST VISIT: GERD (gastroesophageal reflux disease) Postprandial abdominal bloating Postprandial epigastric pain Constipation Screen for colon cancer Plan Will check her blood work, CBC and CMP. Patient can start taking Dulcolax. Avoid dietary triggers and late night snacking. Staying upright for minimum 3 hours after meals discussed with patient. Continue omeprazole daily. Patient can start taking Dulcolax daily. Increase fluid intake and activity to promote better bowel motility. Message sent to surgical schedulers to book procedure for patient both endoscopy and colonoscopy. She will return in 3 months to discuss the prep and blood work. Patient is agreeable to current plan of care and verbalizes understanding of instructions. She was given the opportunity to ask questions and all questions answered. ? Thank you for allowing me to participate in her care Orders Complete Blood Count no Diff 12/25/23 K21.9 Comprehensive Met. Panel 12/25/23 K21.9 New bisacodyl (Dulcolax (bisacodyl)) 10 mg (2 x 5 mg) PO BEDTIME 180 tabs 4RF ED VISIT 01/06/2025 MDM Narrative: Patient is a 49-year-old female with history of bipolar disorder, ADHD, herniated discs, PTSD, hypertension and substance use disorder, bowel obstruction who presents with approximately 3?4 weeks of constipation and intermittent abdominal pain. On exam patient is awake, A+Ox3, VS WNL, afebrile, normal neurological exam without focal deficits, physical exam findings as above. Given reported symptoms and physical exam findings, initial differential includes but is not limited to Constipation, bowel obstruction, perforation, abscess, electrolyte abnormality, dehydration, UTI. Labs notable for no leukocytosis, normal transaminases and T bili. CT A/P with PO contrast notable for no evidence of obstruction. My interpretation is in agreement with the radiologist's interpretation. Patient was able to tolerate oral contrast without difficulty. Results discussed with patient and all questions answered. Discussed with the patient that she can try over the counter magnesium citrate or senna. Recommended scheduling a follow up appointment with GI that she has seen in the past. Return precautions discussed. Patient verbalized understanding of and agreement with plan. TODAY'S VISIT Patient is here today for requested visit. Patient has colonoscopy and upper endoscopy scheduled March 18. As mentioned above patient was seen in the ED on the of this month. Patient had suffered with constipation for over 3 weeks prior seen in the ED. patient was taking MiraLax and Colace. She was not taking Dulcolax as she ran out few months ago. Patient also wants to go over the prep. No issues with anesthesia in the past. Patient has a history of alcohol use as well as marijuana and cocaine use. Patient is on Zepbound for weight loss. Reports that she is tolerating it well, however noticed increased constipation patient also takes iron supplements. She is taking omeprazole and her symptoms of acid reflux have been suppressed. [facility] Medical History (Updated 01/19/25 @ 13:02 by Chrissy Anderson, [employer]-) GERD (gastroesophageal reflux disease) Mild sleep apnea Bipolar I disorder, most recent episode (or current) depressed FH: total knee replacement Hx of migraines Osteoarthritis of lower back Lumbar herniated disc HTN (hypertension) Diabetes Substance dependence, daily use Morbid obesity with BMI of 40.0-44.9, adult Lumbar herniated disc Trigger finger Carpal tunnel syndrome Bowel obstruction Abdominal wall ulcer Hypertension LGSIL on Pap smear of cervix PTSD (post-traumatic stress disorder) Cocaine abuse Baclofen overdose Bipolar 1 disorder, manic, moderate Alcohol abuse Substance abuse Psychiatric diagnosis Hypertension Surgical History History of total knee replacement (TKR) H/O colonoscopy H/O gastric sleeve History of ankle surgery History of carpal tunnel surgery of right wrist Total knee replacement status H/O removal of cyst Gastric bypass status for obesity Hx of tubal ligation History of stress incontinence procedure using tension free vaginal tape History of knee replacement procedure of right knee History of cholecystectomy History of ankle surgery Family History Family/Other Breast cancer Maternal Aunt Cervical cancer Mother Stomach cancer Social History Household Members: Friend(s) and None Household Members Other:: lives by self Housing: Apartment Do you presently have visiting nurse or other home services: Yes ([facility]) Alcohol intake: former Comment: Discharge date is TBD Patient Tobacco Use Status: Current everyday Tobacco user Tobacco use type: Cigarette Cigarette Packs Per Day: 0.5 Cigarettes Per Day: 10.0 Years Smoked: 34 e-Cigarette/Vaping Use: Currently Using Second Hand Smoke Exposure: No Substance Use Type: Marijuana Advance Directives Date on File: 03/18/21 service: No 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al status: unemployed 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 [employer]/ [employer] Sexual orientation: Bisexual Female Reproductive History Menstrual Age of Menarche: 16 Review of Systems Const Denies weight gain and Denies weight loss ENT Reports no additional complaints, Denies dysphagia and Denies odynophagia Card Reports no additional complaints Resp Reports no additional complaints GI Reports abdominal pain, Denies belching, Denies melena, Reports bloating, Denies change in bowel habits, Reports constipation, Denies dysphagia, Denies excessive flatus, Denies dyspepsia, Denies heartburn, Denies diarrhea, Denies loose stools, Denies nausea, Denies odynophagia and Denies vomiting Reports no additional complaints Musc Reports no additional complaints Neuro Reports no additional complaints Psych Reports no additional complaints Endo Reports no additional complaints Physical Exam Vital Signs: BMI result Body Mass Index 31.5 Const General: healthy appearing and no acute distress Nutritional Appearance: obese Orientation/consciousness: patient oriented x3 Resp Effort & Inspection: normal respiratory effort, able to speak in complete sentences, no tracheal deviation and symmetric chest movement Auscultation: clear to auscultation bilaterally Cardio Rate: regular rate GI Inspection: Yes normal to inspection and No distended Palpation (GI): Soft to palpation, not firm, nontender and No hepatosplenomegaly present Auscultation: normal bowel sounds General: Yes no CVA tenderness Back/Spine/Pelvis Back: no CVA tenderness Skin General skin exam: elasticity normal, turgor normal and dry skin Neuro General: patient oriented x3 Psych Appearance: grossly normal Mental Status: mental status grossly normal Assessment & Plan Assessment & Plan (1) GERD (gastroesophageal reflux disease): Code(s): K21.9 - Gastro-esophageal reflux disease without esophagitis Category: Medical Qualifiers: Esophagitis presence: esophagitis presence not specified Qualified Code(s): K21.9 - Gastro-esophageal reflux disease without esophagitis (2) Constipation: Code(s): K59.00 - Constipation, unspecified Qualifiers: Constipation type: slow transit constipation Qualified Code(s): K59.01 - Slow transit constipation (3) Abdominal pain: Code(s): R10.9 - Unspecified abdominal pain Qualifiers: Abdominal location: generalized Qualified Code(s): R10.84 - Generalized abdominal pain (4) Postprandial abdominal bloating: Code(s): R14.0 - Abdominal distension (gaseous) Plan Patient will continue taking omeprazole twice a day. Avoid dietary triggers in late night snacking. Staying upright for minimal 3 hours after meals discussed with patient. Patient was encouraged to start taking Dulcolax instead of stool softeners. Increase fluid intake and activity to promote bowel motility. What to expect before during and after procedure discussed with patient. Stressed the importance of good bowel prep and clear liquid diet day before procedure. Patient will see us after the procedure. She was encouraged to call us if she will have any GI concerning symptoms. Patient is agreeable to this plan and nedra balizes understanding of instructions. She was given the opportunity to ask questions and all questions answered Thank you for allowing me to participate in her care Medications: New bisacodyl (Dulcolax (bisacodyl)) 10 mg (2 x 5 mg) PO BEDTIME 180 tabs 4RF polyethylene glycol 3350 (Miralax) As directed by gastroenterology department at [facility] 238 grams PO ONCE 238 grams 0RF Z12.11 - Encounter for screening for malignant neoplasm of colon Coding Level of Care Code Est Pt Level 4 (17855) Complex visit Add On G2211 Diagnoses Gastroesophageal reflux disease, unspecified whether esophagitis present K21.9 Esophagitis presence: esophagitis presence not specified Slow transit constipation K59.01 Constipation type: slow transit constipation Generalized abdominal pain R10.84 Abdominal location: generalized Postprandial abdominal bloating R14.0 Time Spent (min) 40 Comment 25 minutes spent with patient and additional 15 minutes spent reviewing her records
[2025-01-19 11:59] VITALS: BP 142/86; PULSE 86; O2SAT 97; BMI 31.5
--- OUTSIDE RECORDS SUMMARY | 2025-01-19 15:38 | XMS_ITS | Encounter Summary ---
Author Organization [employer] Address [address] [place] [address] [address] [place] [address] Care Team Providers Care Paraplanner Name Role Phone Maddie Kim MD Primary Care Provider [phone] Reason for Visit * Reason Onset Date Comments Nutrition Medication Question 05/30/2023 Encounter Details Date Type Department Care Team ([facility] Contact Info) Description 05/30/2023 Telephone [facility] MEDICINE [address] [place], [place] [phone] Maddie Kim MD [address] [place], [place] [phone] Nutrition Medication Question Social History Tobacco Use [...] Care Team (Late st Contact Info) Description 03/27/2025 1:30 PM EST Office Visit [facility] MEDICINE [address] [place] [address] Maddie Kim MD [address] [place] [address] documented as of this encounter Visit Diagnoses Not on filedocumented in this encounter Additional Health Concerns Assessment Noted Time PHQ-9 Depression Total Score: 0 05/30/19 23 3:26 PM EDT documented as of this encounter Care Teams Paraplanner Relationship Specialty Start Date End Date Maddie Kim MD [address] [place] [address] PCP - General Family Medicine 07/12/20 Willie Gage 01/17/22 01/05/25 [facility] 12/25/24 documented as of this encounter
--- OUTSIDE RECORDS SUMMARY | 2025-01-19 15:38 | XMS_ITS | Encounter Summary ---
Author Organization [employer] Address [address] [place] [address] [address] [place] [address] Care Team Providers Care Silk Hanger Name Role Phone Maddie Kim MD Primary Care Provider [phone] Encounter Details Date Type Department Care Team ([facility] st Contact Info) Description 07/29/2023 Orders Only [facility] [address] [place], [place] [phone] Maddie Kim MD [address] [place], [place] [phone] Social History Tobacco Use Types Packs/Day Years [...] Description 03/27/2025 1:30 PM EST Office Visit [facility] [address] [place] [address] Maddie Kim MD [address] [place] [address] documented as of this encounter Visit Diagnoses Not on filedocumented in this encounter Additional Health Concerns Assessment Noted Time PHQ-9 Depression Total Score: 3 06/15/19 24 11:48 AM EDT documented as of this encounter Care Teams Silk Hanger Relationship Specialty Start Date End Date Maddie Kim MD [address] [place] [id number] PCP - General Family Medicine 07/12/20 Willie Gage 01/17/22 01/05/25 [facility] 12/25/24 documented as of this encounter
--- OUTSIDE RECORDS SUMMARY | 2025-01-19 15:38 | XMS_ITS | Encounter Summary ---
Author Organization [employer] Address [address] [place] [address] 7 [place] [address] Care Team Providers Care Mash Preparatory Operator Name Role Phone Maddie Kim MD Primary Care Provider [phone] Reason for Visit * Reason Onset Date Comments Medication Question 08/01/2024 Encounter Details Date Type Department Care Team ([facility] Contact Info) Description 08/01/2024 Telephone [facility] [address] [place], [place] [phone] Maddie Kim MD [address] [place], [place] [phone] Medication Question Social History Tobacco Use Types [...] medication. Pt seen today 08/01 at the [facility], provider: Jayleen Mckeon. documented in this encounter Plan of Treatment Upcoming Encounters Date Type Department Care Team (Late st Contact Info) Description 03/27/2025 1:30 PM EST Office Visit [facility] [address] [place] [address] Maddie Kim MD [address] [place] [address] documented as of this encounter Visit Diagnoses Not on filedocumented in this encounter Additional Health Concerns Assessment Noted Time PHQ-9 Depression Total Score: 9 07/05/19 25 6:48 AM EDT documented as of this encounter Care Teams Mash Preparatory Operator Relationship Specialty Start Date End Date Maddie Kim MD [address] [place] [address] PCP - General Family Medicine 07/12/20 Willie Gage 01/17/22 01/05/25 [facility] 12/25/24 documented as of this encounter
--- OUTSIDE RECORDS SUMMARY | 2025-01-19 15:38 | XMS_ITS | Clinical Summary ---
Author Organization [employer] Address [address] [place] [address] [address] [place] [address] Care Team Providers Care Customer Experience Leader Name Role Phone Maddie Kim MD Primary Care Provider [phone] Allergies Active Allergy Reactions Criticality Noted Date [...] 1,000 mg by mouth 2 times daily. 023 Active Emollient (Minerin) lotion APPLY TOPICALLY 2-3 TIMES A DAY NEEDED FOR DRY SKIN 473 mL 4 Active albuterol 108 (90 Base) MCG/ACT inhaler Inhale 2 puffs every 6 (six) hours if needed for wheezing. 18 g 11 024 Active minoxidil (Loniten) 2.5 MG tablet Take 0.5 tablets by mouth Once per day. 024 Active celecoxib (CeleBREX) 200 MG capsule Take 200 mg by mouth Once per day. Active omeprazole (PriLOSEC) [address] capsule TAKE 1 CAPSULE BY MOUTH BEFORE BREAKFAST 90 capsule 3 024 Active QUEtiapine (SEROquel) 50 MG tablet Take [...] 8 ounces of water or juice. Active cyclobenzaprine (Flexeril) 5 MG tablet Take 1 tablet (5 mg) by mouth if needed in the morning, at noon, and at bedtime for muscle spasms. TAKE 1 TABLET BY MOUTH THREE TIMES A DAY 90 tablet 025 Active Vraylar 1.5 MG capsule Active clonazePAM (KlonoPIN) 0.5 MG tablet Active propranolol (Inderal) 10 MG tablet Active clindamycin (Cleocin) 300 MG capsule TAKE 2 CAPSULES BY MOUTH 1/2 HOUR PRIOR TO DENTAL APPOINTMENT Active buPROPion SR (Wellbutrin SR) 100 MG 12 hr tablet Active ferrous gluconate (Fergon) 324 (38 Fe) MG tablet Take 1 tablet (324 mg) by mouth with breakfast. 90 tablet 3 025 Active QUEtiapine (SEROquel) 25 MG tablet 025 Active traZODone (Desyrel) 50 MG tablet 025 Active Blood Pressure Monitoring (Blood Pressure Cuff) misc 1 each Once per day. 1 each 025 Active polyethylene glycol, PEG, 3350 (GaviLAX) 17 GM/SCOOP powder Take 17 g by mouth Once per day. 510 g 2 025 Active cholecalciferol (Vitamin D-3) 50 MCG (2000 UT) capsuleIndication s:Vitamin D deficiency Take 1 capsule (50 mcg) by mouth Once per day. 90 capsule 3 025 Active Blood Pressure Monitoring (Omron 3 Series BP Monitor) deviceIndications :Benign hypertension USE TO CHECK BLOOD PRESSURE ONCE DAILY 025 Active gabapentin (Neurontin) 800 MG tabletIndications :Chronic pain of both knees,Herniated lumbar intervertebral disc 025 Active prazosin (Minipress) 2 MG capsuleIndication s:Bipolar disorder with severe sonya (CMS/HCC) ([facility]) 025 Active traZODone (Desyrel) 100 MG tabletIndications :Bipolar disorder with severe sonya (CMS/HCC) ([facility]) 025 Active Tirzepatide-Weigh t Management (Zepbound) 12.5 MG/0.5ML solution auto-injectorIndi cations:Class 2 obesity Inject 0.5 mL (12.5 mg) under the skin 1 (one) time per week. 2 mL 3 025 Active hydrocortisone 2.5 % creamIndications: External hemorrhoid Apply topically 2 times daily. 28 g 1 025 Active witch james-glycerin (Tucks) padIndications:Ex ternal hemorrhoid Apply topically if needed for irritation. 40 each 1 025 Active Tirzepatide-Weigh t Management (Zepbound) 10 MG/0.5ML solution auto-injector Inject 0.5 mL (10 mg) under the skin 1 (one) time per week. 2 mL 1 025 Active docusate sodium (Colace) 100 MG capsule TAKE 1 CAPSULE BY MOUTH TWICE A DAY 180 capsule 1 025 Active baclofen (Lioresal) 10 MG tabletIndications :Chronic midline low back pain without sciatica Take 1 tablet (10 mg) by mouth if needed in the morning, at noon, and at bedtime for muscle spasms. 90 tablet 025 2024 Active docusate sodium (Colace) 100 MG capsule TAKE 1 CAPSULE BY MOUTH TWICE A DAY 180 capsule 1 025 2024 Discontinued(R eorder (will not trigger notification to Pharmacy)) cholecalciferol (Vitamin D-3) 50 MCG (2000 UT) capsule Take 1 capsule (50 mcg) by mouth Once per day. 90 capsule 3 025 2024 Discontinued(R eorder (will not trigger notification to Pharmacy)) Blood Pressure kit Use as directed to check blood pressure 1 kit 2024 Discontinued GaviLAX 17 GM/SCOOP powder DISSOLVE 17 GRAM IN WATER AND TAKE BY MOUTH ONCE DAILY 1-3 TIMES DAILY TO PRODUCE 1 SOFT STOOL DAILY 510 g 2 025 2024 Discontinued(R eorder (will not trigger notification to Pharmacy)) gabapentin (Neurontin) 400 MG capsule Take 1 capsule (400 mg) by mouth every 6 (six) hours. 120 capsule 3 2024 Discontinued(T herapy completed) Salicylic Acid 40 % pads Apply 1 Pad topically at bedtime. 30 each 025 2024 Discontinued(T herapy completed) terconazole (Terazol 3) 0.8 % vaginal cream INSERT 1 APPLICATORFUL VAGINALLY BEDTIME FOR 3 DAYS 2024 Discontinued(T herapy completed) baclofen (Lioresal) 10 MG tablet Take 1 tablet (10 mg) by mouth 3 times daily. 90 tablet 025 2024 Discontinued(R eorder (will not trigger notification to Pharmacy)) lisinopril 10 MG tablet TAKE 2 TABLETS (20 MG) BY MOUTH ONCE PER DAY. 60 tablet 11 025 2024 Discontinued(T herapy completed) Tirzepatide-Weigh t Management (Zepbound) 12.5 MG/0.5ML solution auto-injector Inject 0.5 mL (12.5 mg) under the skin 1 (one) time per week. 2 mL 3 025 2024 Discontinued(R eorder (will not trigger notification to Pharmacy)) Tirzepatide-Weigh t Management (Zepbound) 12.5 MG/0.5ML solution auto-injector Inject 0.5 mL (12.5 mg) under the skin 1 (one) time per week. 2 mL 3 025 2024 Discontinued(R eorder (will not trigger notification to Pharmacy)) baclofen (Lioresal) 10 MG tabletIndications :Chronic midline low back pain without sciatica Take 1 tablet (10 mg) by mouth if needed in the morning, at noon, and at bedtime for muscle spasms. 90 tablet 025 2024 Discontinued(R eorder (will not trigger notification to Pharmacy)) Tirzepatide-Weigh t Management (Zepbound) 12.5 MG/0.5ML solution auto-injector Inject [...] (02/23/2023 8:52 AM EST): Will refer to [facility] hand surgeon History of gastrectomy 10/06/2022 Assessment & Plan (04/02/2024 4:07 PM EST): 2009 gastric sleeve Assessment & Plan (10/06/2022 7:52 AM EDT): Refer to [facility] weight loss program for discussion of possible [...] hardware removed Bipolar disorder with severe sonya ([facility]) Assessment & Plan (09/09/2024 8:32 AM EDT): Patient needs [facility] for administratio of medications. She was using [facility], but they cannot come before her work day at 8am. Please write order for medical technical writer in the morning between 7 and 8 and send to Bobby DOOLEYA Assessment & Plan (10/06/2022 7:54 AM EDT): [...] re-iterated that she can reach us through [employer] if she needs anything Assessment & Plan [...] pcn,dilaudid Alcohol use disorder, modera te, dependence ([facility]) 09/06/2020 02/20/2023 Assessment & Plan (10/06/2022 7:51 [...] sleeve? I think discuss portion sizes with spray booth operator Assessment & Plan (01/29/2022 10:40 AM [...] Encounters Date Type Department Care Team Description 01/18/[address] [facility] [address] [facility] [place] [address] Maddie Kim MD Chronic midline low back pain without sciatica 01/18/[address] [facility] [address] [place] [address] Maddie Kim MD 01/14/2025 Refill [facility] [address] [place] [address] Maddie Kim MD Chronic midline low back pain without sciatica 01/13/[address] [address] Maddie Kim MD Prior Authorization (PA: [employer]) 01/06/2025 Results Follow-Up [address] Abdomen Pelvis w/ Contrast 01/06/2025 Orders Only GENERIC EXTERNAL DATA DEPARTMENT Provider, Generic External Data 01/06/2025 Telephone [facility] [place] [address] Maddie Kim MD Nurse Triage 12/31/2024 3:45 PM EST Office Visit [facility] [place] [address] Maddie Kim MD Benign hypertension (Primary Dx); Encounter for immunization; Encounter for vaccination; Bipolar disorder with severe sonya (CMS/HCC) (HCC); Chronic bilateral low back pain without sciatica; Chronic pain of both knees; Herniated lumbar intervertebral disc; Class 2 obesity; External hemorrhoid 12/31/2024 Travel 12/30/2024 Telephone [facility] [place] [address] Maddie Kim MD Chart Prep 12/25/2024 Refill [facility] [address] [place] [address] Maddie Kim MD Chronic midline low back pain without sciatica; Vitamin D deficiency 12/25/[address] [facility] [address] [place] [phone] Maddie Kim MD 12/24/[address] [facility] [address] [place] [phone] Maddie Kim MD 12/24/[address] [address] Maddie Kim MD 12/23/2024 Patient Outreach [address] [address] Maddie Kim MD Pre-visit Planning (SDOH screening was completed on 09/08/2024) 12/22/[address] [address] Maddie Kim MD 12/11/[address] [address] Kathie Mclean, MAJO NTTS f/up 12/10/2024 Orders Only GENERIC EXTERNAL DATA DEPARTMENT Provider, Generic External Data 11/21/[address] [facility] [address] [place] [phone] Maddie Kim MD 11/21/[address] [address] Maddie Kim MD Med Refill 11/04/[address] [address] Maddie Kim MD Med Refill 10/29/[address] [facility] [address] [place] [phone] Maddie Kim MD 10/24/[address] [address] Maddie Kim MD Med Refill from Last 3 Months Immunizations Immunization Administration Dates Next Due Influenza Injectable Quadriv alant Preservative Free IIV4 MDCK 01/01/2023 Influenza injectable quadriv alent preservative free 12/26/2021,01/01/2021,02/27/2020 Influenza, IIV3, injectable 01/05/2022,1 03/19/2015,10/13/2014,10/31,03/02/2011,11/01/2009 Influenza, Injectable, MDCK, preservative free 12/11/2023 Influenza, seasonal, injecta ble, preservative free 12/31/2024,10/21/2023 Moderna Covid-19 Vaccine 12+ 08/26/2020,07/30/19 Pfizer Covid-19 Vaccine 12+ 12/31/2024 Pfizer Covid-19 [...] 12/31/2024 3:46 PM EST Plan of Treatment Upcoming Encounters Date Type Department Care Team (Late st Contact Info) Description 03/27/2025 1:30 PM EST Office Visit [facility] [address] [place] [address] Maddie Kim MD [address] [place] [address] Health Maintenance Due Date Last Done Comments [...] Procedure Name Priority Date/Time Associated Diagnosis Comments CT ABDOMEN PELVIS W CONTRAST Routine 01/06/2025 3:11 PM EST XR KUB AND UPRIGHT 2 VIEWS Routine 01/06/2025 11:16 AM EST HCG, TOTAL, QN Routine 01/06/2025 11:06 AM EST HIGH SENSITIVITY TROPONIN I Routine 01/06/2025 11:06 AM EST LIPASE Routine 01/06/2025 11:06 AM EST MAGNESIUM Routine 01/06/2025 11:06 AM EST BASIC METABOLIC PANEL Routine 01/06/2025 11:06 AM EST HEPATIC FUNCTION PANEL Routine 11:06 AM EST CBC WITH AUTO DIFFERENTIAL Routine 01/06/2025 11:06 AM EST DRUG MONITOR, PANEL 1, SCREEN, URINE Routine [...] Recently Relevant to Health Maintenance Results * CT Abdomen Pelvis w/ Contrast (01/06/2025 3:11 PM EST) Anatomical Region Laterality Modality Body, Pelvis, Abdomen Computed T omography 01/06/2025 3:11 PM EST Narrative 01/06/2025 3:33 PM EST [place] [address] CT Scan Report Signed Patient: Atiya Dotson MR#: [id number] : 1975 Acct:[id number] Age/Sex: 49 / F ADM Date: 01/06/25 Loc: HO.ED Attending Dr: Ordering Physician: Nieves Manrique NP Date of Service: 01/06/25 Procedure(s): CT abdomen pelvis w IV con Accession Number(s): [id number] cc: Maddie Kim; Nieves Manrique NP Report Number: [id number]: Total DLP = 630.00 mGy-cm Reason for Exam: abd pain, vomiting, constipation, hx sbo EXAMINATION: CT ABDOMEN AND PELVIS WITH CONTRAST CLINICAL INFORMATION: Abdominal pain. Vomiting. Constipation. History of small bowel obstruction. COMPARISON: Correlated to x-ray dated January 06, 2025. TECHNIQUE: Multidetector volumetric images were obtained from the superior aspect of the liver through the pubic symphysis following administration 85 mL of Omnipaque 350 intravenous contrast. Sagittal and coronal reformatted images were obtained on the technologist's workstation. Oral contrast: Yes This CT examination was performed using dose optimization techniques as appropriate, variously including the following: *Automated exposure control *Adjustment of mA and/or kV according to patient size (this includes techniques or standardized protocols for targeted exams where dose is matched to indication/reason for exam; i.e. extremities or head) *Use of iterative reconstruction technique DLP: 630 mGy-cm FINDINGS: LUNG BASES: No acute airspace disease. 1. Noncalcified pulmonary nodule, peripheral right hepatic lobe. LIVER, GALLBLADDER, AND BILIARY TREE: 20 cm. No solid or cystic lesion. Main portal veins and hepatic veins are patent. Intrahepatic portion of the IVC is patent. Gallbladder is absent. Common bile duct measures 7 mm which tapers at the junction with the second portion of the duodenum. PANCREAS: No solid or cystic lesion. Volume loss. No main pancreatic ductal dilatation. No peripancreatic fluid collections. SPLEEN: 10 cm. No solid or cystic mass. ADRENAL GLANDS: No nodular lesion. KIDNEYS AND URETERS: No hydronephrosis. No gross nephrolithiasis. Normal enhancement pattern of the renal cortex. No dilatation of the ureters. BLADDER: Fluid-filled. GASTROINTESTINAL TRACT: Sutures at the gastroesophageal junction/proximal stomach and proximal small bowel loops likely 1Y procedure. The oral contrast reaches the cecum/ascending colon. There is abundant stool in the large intestine. No intestinal obstruction pattern. No pneumatosis intestinalis. Appendix is normal. No ascites. No pneumoperitoneum. ABDOMINAL WALL: No gross umbilical hernia. LYMPH NODES: No mesenteric or retroperitoneal lymphadenopathy. VASCULAR: Calcified plaques in the coronary arteries and distal abdominal aorta. No aneurysm or dissection abdominal aorta. PELVIC VISCERA: Probably status post the tubal ligation. No gross masses. OSSEOUS STRUCTURES: Dextroconvex scoliosis/curvature apex at L3-4. Endplate sclerosis decreased intervertebral disc height vacuum phenomenon and marginal osteophyte formation at L4-5. Multilevel lower thoracic spondylosis. No acute fracture or gross listhesis. CT/CT abdomen pelvis w IV con IMPRESSION: Status post Melissa-en-Y procedure without intestinal obstruction pattern. Status post cholecystectomy with questionable stricture of the central body. Spondylosis, moderate to severe with scoliosis at L4-5. Fleischner guidelines were followed. Electronically signed by: Roddy Gandhi MD 01/06/2025 03:30 PM [facility] Dictated By: Roddy Bernardo MD Signed By: <Electronically signed by Roddy Phillips MD in OV> 01/06/25 1530 DD/ 1511 TD/TT: 01/06/25 1519 Gardening Manager: Procedure Note Donotuseinterpreter, Image - 01/06/[address] [address] [address] Scan Report Signed Patient: Zain Dotson#: [id number] : 1975Acct:[id number] Age/Sex: 49 / FADM Date: 01/06/25 Loc: HO.ED Attending Dr: Ordering Physician: Nieves Manrique NP Date of Service: 01/06/25 Procedure(s): CT abdomen pelvis w IV con Accession Number(s): [id number] cc: Maddie Kim; Nieves Manrique NP Report Number: [id number]: Total DLP = 630.00 mGy-cm Reason for Exam: abd pain, vomiting, constipation, hx sbo EXAMINATION: CT ABDOMEN AND PELVIS WITH CONTRAST CLINICAL INFORMATION: Abdominal pain. Vomiting. Constipation. History of small bowel obstruction. COMPARISON: Correlated to x-ray dated January 06, 2025. TECHNIQUE: Multidetector volumetric images were obtained from the superior aspect of the liver through the pubic symphysis following administration 85 mL of Omnipaque 350 intravenous contrast. Sagittal and coronal reformatted images were obtained on the technologist's workstation. Oral contrast: Yes This CT examination was performed using dose optimization techniques as appropriate, variously including the following: *Automated exposure control *Adjustment of mA and/or kV according to patient size (this includes techniques or standardized protocols for targeted exams where dose is matched to indication/reason for exam; i.e. extremities or head) *Use of iterative reconstruction technique DLP: 630 mGy-cm FINDINGS: LUNG BASES: No acute airspace disease. 1. Noncalcified pulmonary nodule, peripheral right hepatic lobe. LIVER, GALLBLADDER, AND BILIARY TREE: 20 cm. No solid or cystic lesion. Main portal veins and hepatic veins are patent. Intrahepatic portion of the IVC is patent. Gallbladder is absent. Common bile duct measures 7 mm which tapers at the junction with the second portion of the duodenum. PANCREAS: No solid or cystic lesion. Volume loss. No main pancreatic ductal dilatation. No peripancreatic fluid collections. SPLEEN: 10 cm. No solid or cystic mass. ADRENAL GLANDS: No nodular lesion. KIDNEYS AND URETERS: No hydronephrosis. No gross nephrolithiasis. Normal enhancement pattern of the renal cortex. No dilatation of the ureters. BLADDER: Fluid-filled. GASTROINTESTINAL TRACT: Sutures at the gastroesophageal junction/proximal stomach and proximal small bowel loops likely 1Y procedure. The oral contrast reaches the cecum/ascending colon. There is abundant stool in the large intestine. No intestinal obstruction pattern. No pneumatosis intestinalis. Appendix is normal. No ascites. No pneumoperitoneum. ABDOMINAL WALL: No gross umbilical hernia. LYMPH NODES: No mesenteric or retroperitoneal lymphadenopathy. VASCULAR: Calcified plaques in the coronary arteries and distal abdominal aorta. No aneurysm or dissection abdominal aorta. PELVIC VISCERA: Probably status post the tubal ligation. No gross masses. OSSEOUS STRUCTURES: Dextroconvex scoliosis/curvature apex at L3-4. Endplate sclerosis decreased intervertebral disc height vacuum phenomenon and marginal osteophyte formation at L4-5. Multilevel lower thoracic spondylosis. No acute fracture or gross listhesis. CT/CT abdomen pelvis w IV con IMPRESSION: Status post Melissa-en-Y procedure without intestinal obstruction pattern. Status post cholecystectomy with questionable stricture of the central body. Spondylosis, moderate to severe with scoliosis at L4-5. Fleischner guidelines were followed. Electronically signed by: Roddy Gandhi MD 01/06/2025 03:30 PM EST Dictated By: Roddy Bernardo MD Signed By: <Electronically signed by Roddy Phillips MDin OV> 01/06/25 1530 DD/ 1511 TD/TT: 01/06/25 1519 Gardening Manager: [facility] External Provider IMG CT PROCEDURES Final Result * XR KUB and Upright 2 Views (01/06/2025 11:16 AM EST) Anatomical Region Laterality Modality Radiographic Celeste ging 01/06/2025 11:1 6 AM EST Narrative 01/06/2025 11:29 AM EST [address] [address] XRay Report Signed Patient: Atiya Dotson MR#: [id number] : 1975 Acct:[id number] Age/Sex: 49 / F ADM Date: 01/06/25 Loc: HO.ED Attending Dr: Ordering Physician: Aurea Brandt Date of Service: 01/06/25 Procedure(s): XR KUB Accession Number(s): [id number] cc: Maddie Kim; Aurea Brandt Reason for Exam: constipation, hx of SBO EXAMINATION: XR ABDOMEN KUB CLINICAL INDICATION: constipation, hx of SBO COMPARISON: None available. TECHNIQUE: AP view of the abdomen. FINDINGS: Sutures in the left upper quadrant abdomen. 5 mm calcification in the medial aspect of the left upper quadrant abdomen below the left hemidiaphragm. There is abundant stool in a nondilated large intestine, ascending and descending colon. No air-fluid levels. Liver shadow projects below the rib cage. S-shaped curvature of the thoracolumbar spine. Patient's large body habitus/obesity. XR/XR KUB IMPRESSION: Abundant stool without intestinal obstruction pattern. Questionable nephrolithiasis, left kidney. Probable hepatomegaly. Electronically signed by: Roddy Gandhi MD 01/06/2025 11:26 AM EST Dictated By: Roddy Bernardo MD Signed By: <Electronically signed by Roddy Phillips MD in OV> 01/06/25 1126 DD/ 1116 TD/TT: 01/06/25 1121 Gardening Manager: Procedure Note Donotuseinterpreter, Image - 01/06/[address] [address] XRay Report Signed Patient: Zain Dotson#: [id number] : 1975Acct:[id number] Age/Sex: 49 / FADM Date: 01/06/25 Loc: .ED Attending Dr: Ordering Physician: Aurea Brandt Date of Service: 01/06/25 Procedure(s): XR KUB Accession Number(s): [id number] cc: Maddie Kim; Aurea Brandt Reason for Exam: constipation, hx of SBO EXAMINATION: XR ABDOMEN KUB CLINICAL INDICATION: constipation, hx of SBO COMPARISON: None available. TECHNIQUE: AP view of the abdomen. FINDINGS: Sutures in the left upper quadrant abdomen. 5 mm calcification in the medial aspect of the left upper quadrant abdomen below the left hemidiaphragm. There is abundant stool in a nondilated large intestine, ascending and descending colon. No air-fluid levels. Liver shadow projects below the rib cage. S-shaped curvature of the thoracolumbar spine. Patient's large body habitus/obesity. XR/XR KUB IMPRESSION: Abundant stool without intestinal obstruction pattern. Questionable nephrolithiasis, left kidney. Probable hepatomegaly. Electronically signed by: Roddy Gandhi MD 01/06/2025 11:26 AM EST Dictated By: Roddy Bernardo MD Signed By: <Electronically signed by Roddy Phillips MDin OV> 01/06/25 1126 DD/ 1116 TD/TT: 01/06/25 1121 Gardening Manager: us [facility] External Provider IMG XR PROCEDURES Final Result * High Sensitivity Troponin I (01/06/2025 11:06 AM EST) Pathologist [facility] [place] TROPONIN I HIGH SENSITIVITY <2.7 <3.5 - 17.0 ng/L [facility] Comment:The العلي high sens itivity Troponin-I results should beused in conjunction with other diagnostic information suchas ECG, clinical observations and information, and patientsymptoms to aid in the diagnosis of [place]. 01/06/2025 11:0 6 AM EST 01/06/2025 11:12 AM EST Generic External Data Provider LAB BLOOD ORDERAB LES Final Result [facility] [address] [place] [phone] * (ABNORMAL) CBC auto differential (01/06/2025 11:06 AM EST) Only the most recent of2 resultswithin the time period is included. White Blood Count 5.6 4.8 - 10.8 X10*3/uL [facility] Red Blood Count 4.49 4.20 - 5.50 X10*6/uL [facility] Hemoglobin 11.1(L) 12.0 - 16.0 g/dl [facility] Hematocrit 35.2(L) 37.0 - 47.0 % [facility] Mean Corpuscular Volume 78.4(L) 80.0 - 98.0 fL [facility] Mean Corpuscular Hemoglobin 24.7(L) 27.0 - 33.0 pg [facility] Mean Corpuscular HGB Conc 31.5 31.0 - 35.0 g/dl [facility] Red Cell Distribution Width 12.5 11.0 - 16.0 % [facility] Platelet Count 251 160 - 400 X10*3/uL [facility] Mean Platelet Volume 9.8 9.4 - 12.3 fL [facility] Neutrophils Percent Auto 60.6 45 - 73 % [facility] Imm Gran Pct Auto 0.2 0.0 - 0.4 % [facility] Lymphocytes Percent Auto 29.9 20 - 40 % [facility] Monocytes Percent Auto 6.3 2 - 11 % [facility] Eosinophils Percent Auto 2.5 0 - 4 % [facility] Basophils Percent Auto 0.5 0 - 2 % [facility] NRBC Pct Auto 0.0 0.0 - 0.2 /100WBC [facility] Neutrophils Absolute Auto 3.4 2.0 - 8.3 x10*3/uL [facility] Imm Gran Abs Auto 0.01 0.00 - 0.03 X10*3/uL [facility] Lymphocytes Absolute Auto 1.7 1.2 - 4.9 X10*3/uL [facility] Monocytes Absolute Auto 0.4 0.1 - 1.2 X10*3/uL [facility] Eosinophils Absolute Auto 0.1 0.0 - 0.4 X10*3/uL [facility] Basophils Absolute Auto 0.0 0.0 - 0.2 X10*3/uL [facility] NRBC Abs Auto 0.000 0.0 - 0.012 X10*3/uL [facility] 01/06/2025 11:0 6 AM EST 01/06/2025 11:12 AM EST Generic External Data Provider LAB BLOOD ORDERAB LES Final Result Performing Organization Address City/[facility]/ZIP Co de Phone Number [facility] [address] [place] [phone] * hCG, Total, Quantitative (01/06/2025 11:06 AM EST) HCG Quantitative <2 mIU/mL [facility] Comment:Weeks post LMP Appro ximate hCG(Last Menstrual Period) Range (mIU/ml)3 - 4 weeks 9 - 1304 - 5 weeks 75 - 2,6005 - 6 weeks 850 - 20,8006 - 7 weeks 4000 - 100,2007 - 12 weeks 11,500 - 289,08600 - 16 weeks 18,300 - 137,61666 - 29 weeks (2nd trimester) 1,400 - 53,74300 - 41 weeks (3rd trimester) 940 - 60,000The العلي B-hCG assay is used for the early detection ofpregnancy; it cannot be used to diagnose any conditionunrelated to . If a B-hCG level is not supportedby the clinical evidence, results should be confirmed by analternative method (qualitative urine hCG, for example). 01/06/2025 11:0 6 AM EST 01/06/2025 11:12 AM EST us Generic External Data Provider LAB BLOOD ORDERAB LES Final Result Performing Organization Address [facility] Co de Phone Number [facility] [address] [place] [phone] * Magnesium (01/06/2025 11:06 AM EST) Magnesium 2.1 1.6 - 2.6 mg/dL [facility] 01/06/2025 11:0 6 AM EST 01/06/2025 11:12 AM EST us Generic External Data Provider LAB BLOOD ORDERAB LES Final Result Performing Organization Address City/[facility]/ZIP Co de Phone Number [facility] [address] [place] [phone] * Lipase (01/06/2025 11:06 AM EST) Lipase 36 8 - 78 U/L [facility] 01/06/2025 11:0 6 AM EST 01/06/2025 11:12 AM EST us Generic External Data Provider LAB BLOOD ORDERAB LES Final Result Performing Organization Address [facility]/ZIP Co de Phone Number [facility] [address] [place] [phone] * Hepatic Function Panel (01/06/2025 11:06 AM EST) Bilirubin, Total 0.6 0.0 - 1.0 mg/dL [facility] Bilirubin, Direct 0.2 0.0 - 0.5 mg/dL [facility] Aspartate Amino Transferase 27 5 - 31 U/L [facility] Alanine Aminotransferase 28 0 - 31 U/L [facility] Total Protein 7.2 6.5 - 8.0 g/dL [facility] Albumin Level 4.5 3.5 - 5.0 g/dL [facility] Alkaline Phosphatase 85 39 - 117 U/L [facility] 01/06/2025 11:0 6 AM EST 01/06/2025 11:12 AM EST us Generic External Data Provider LAB BLOOD ORDERAB LES Final Result Performing Organization Address [facility]/ZIP Co de Phone Number [facility] [address] [place] [phone] * Basic Metabolic Panel (01/06/2025 11:06 AM EST) Sodium 136 135 - 145 mmol/L [facility] Potassium 4.1 3.3 - 5.1 mmol/L [facility] Chloride 101 96 - 108 mmol/L [facility] Carbon Dioxide 27 22 - 29 mmol/L [facility] Anion Gap 12 12 - 20 [facility] Urea Nitrogen (BUN) 16 9 - 16 mg/dL [facility] Creatinine, Serum 0.74 0.5 - 1.4 mg/dL [facility] Creatinine Clr Calc Pharmacy 90.9 [facility] Comment:Provided height and weight: 157.48 cm,78.018 kg.eGFR (calculated from the MDRD study equation) and eCrCl(calculated from the Cockcroft-Gault equation) are based ondifferent parameters and may not yield comparable results.If eCrCl result is absurd, please check patient'sheight/weight. Estimated Glomerular Filt Rate >60 [facility] Comment:Chronic Kidney Disea se: Estimated GFR < 60 mL/min/1.99t3Lfphhb Kidney Disease: Estimated GFR < 15 mL/min/1.73m2 Glucose 79 60 - 115 mg/dL [facility] Calcium 9.7 8.4 - 10.2 mg/dL [facility] 01/06/2025 11:0 6 AM EST 01/06/2025 11:12 AM EST us Generic External Data Provider LAB BLOOD ORDERAB LES Final Result [facility] [address] [place] [phone] * Urinalysis, Complete, with Reflex to Culture (12/10/2024 2:54 AM EDT) Color Urine Yellow [facility] Appearance Urine Clear [facility] PH 6.5 5.0 - 9.0 [facility] Glucose Urine UA Negative Negative mg/dL [facility] Urine Blood Negative Negative [facility] Specific [place] - Urine <=1.005 1.005 - 1.025 [facility] Urine Protein Negative Neg-Trace mg/dL [facility] Urine Ketones Negative Negative mg/dL [facility] Nitrite Urine Negative Negative [facility] Leukocyte Esterase Urine Negative Negative [facility] RBC Urine 0-2 0 - 2 /HPF [facility] Urine WBC 0-5 0 - 5 /HPF [facility] Urine Squamous Epithelial Cell 0-2 0 - 2 /HPF [facility] Urine Bacteria None Seen None Seen [facility] Hyaline Casts, Urine 0-2 0 - 2 /LPF [facility] 12/10/2024 2:54 AM EDT 12/10/2024 3:00 AM EDT Narrative [facility] - 12/10/2024 3:21 AM EDT [id number], Clean Catch us Generic External Data Provider LAB URINE ORDERAB LES Final Result [facility] [address] [place] [phone] * (ABNORMAL) Drug Monitoring, Panel 1, Screen, Urine (12/10/2024 2:54 AM EDT) Opiate Screen Urine Not Detected Not Detect [facility] Comment:Opiate cut-off is 30 0 ng/mL.Positive results are unconfirmed and should not be used fornon-medical purposes. Barbiturates, Urine Not Detected Not Detect [facility] Comment:Barbiturate cut-off is 200 ng/mL.Positive results are unconfirmed and should not be used fornon-medical purposes. Phencyclidine Screen Urine Not Detected Not Detect [facility] Comment:Phencyclidine cut-of f is 25 ng/mL.Positive results are unconfirmed and should not be used fornon-medical purposes. Amphetamine Screen Urine Not Detected Not Detect [facility] Comment:Amphetamine cut-off is 1000 ng/mL.Positive results are unconfirmed and should not be used fornon-medical purposes. Benzodiazepines Screen Urine Not Detected Not Detect [facility] Comment:Benzodiazepine cut-o ff is 200 ng/mL.Positive results are unconfirmed and should not be used fornon-medical purposes. Cocaine Screen Urine Not Detected Not Detect [facility] Comment:Cocaine cut-off is 3 00 ng/mL.Positive results are unconfirmed and should not be used fornon-medical purposes. Cannabinoid Screen Urine POSITIVE(A) Not Detect [facility] Comment:Cannabinoid cut-off is 50 ng/mL.Positive results are unconfirmed and should not be used fornon-medical purposes. Methadone Screen, Urine Not Detected Not Detect ng/mL [facility] Comment:Methadone cut-off is 300 ng/mL.Positive results are unconfirmed and should not be used fornon-medical purposes. FENTANYL URINE Not Detected Not Detect [facility] Comment:Fentanyl cut-off is 1 ng/mL.Positive results are unconfirmed and should not be used fornon-medical purposes. Oxycodone Urine Screen Not Detected Not Detect ng/mL [facility] Comment:Oxycodone cut-off is 100 ng/mL.Positive results are unconfirmed and should not be used fornon-medical purposes. Buprenorphine Screen Not Detected Not Detect ng/mL [facility] Comment:Buprenorphine cut-of f is 5 ng/mL.Positive results are unconfirmed and should not be used fornon-medical purposes. 12/10/2024 2:54 AM EDT 12/10/2024 3:00 AM EDT Generic External Data Provider LAB URINE ORDERAB LES Final Result [facility] [address] [place] [phone] * Pap Smear (01/22/2024 8:03 AM EST) 01/22/2024 8:03 AM EST 01/23/2024 11:00 AM EST Narrative [facility] - 01/25/2024 12:58 PM EST ----- ------- Name: Atiya Esparza Age/Sex: 48/F : 1975 Unit#: [id number] Attend Dr: John Schmidt MD Re01/22/24 Status: DEP REF Location: [facility] Disch: ----- ------- SPEC : [id number] RECD: 01/23/24 STATUS: MEHRDAD GREGG NUM: [id number] MAMADOU: 01/22/[address] [facility] [address]: John Schmidt MD ENTERED: 01/23/24 [...] Received ThinPrep-Cervical Copies To: Maddie Kim [address] [place], [place] [phone] John Schmidt MD [facility] [address] [place] [address] [address] [place] [address] [phone] ----- ------- Signed (signature on file) YASSINE Garcia ([facility]) 01/25/24 1258 ----- ------- END OF REPORT us Generic External Data Provider LAB CYTOLOGY HARJEET AVALOS Final Result [facility] [address] [place] [phone] * Lipid Panel, Standard (09/08/2023 8:43 AM EDT) Triglycerides 57 <150 mg/dL [facility] Comment:Desirable Triglyceri de: less than 150 mg/dLBorderline High Triglyceride 150-199 mg/dLHigh Triglyceride: 200-499 mg/dLVery High Triglyceride: greater than or equal to 5OO mg/dL Cholesterol 158 <200 mg/dL [facility] Comment:Desirable Cholestero l: less than 200 mg/dLBorderline High Cholesterol: 200-239 mg/dLHigh Cholesterol: greater than 239 mg/dL LDL Cholesterol Calculated 87 <100 mg/dL [facility] Comment:Desirable LDL: less than 100 mg/dLNear Optimal/Above Optimal LDL: 110- 129 mg/dLBorderline High LDL: 130-159 mg/dLHigh LDL: 160-189 mg/dLVery High LDL: greater than or equal to 190 mg/dL HDL Cholesterol 60 >40 mg/dL [facility] Comment:Desirable HDL: great er than 40 mg/dL Note: This HDL assay may give artificially low results in patients with liver disease. Blood Venous blood specimen / Unknown 09/08/2023 8:43 AM EDT 09/08/2023 11:09 AM EDT Maddie Kim MD LAB BLOOD ORDERABLES Final Res ult [facility] [address] [place] [phone] * BI Mammogram Screening Tomosynthesis Bilateral (05/04/2023 4:02 PM EDT) Anatomical Region Laterality Modality Breast Bilateral Mammography 05/04/2023 4:02 PM EDT Narrative 05/26/2023 3:06 PM EDT [address] [place] [address] Mammography Report Signed Patient: Atiya Esparza MR#: [id number] : 1975 Acct:[id number] Age/Sex: 47 / F ADM Date: 05/04/23 Loc: HO.MAMMO Attending Dr: Maddie Kim MD Ordering Physician: Maddie Kim Results: 1Negative Date of Service: 05/04/23 Follow Up: 1 Year From [facility] Mammogram Procedure(s): MM tomosynthesis screening BI Accession Number(s): [id number] cc: Maddie Kim EXAMINATION: MM SCREENING DIGITAL [...] in OV> 05/26/23 1503 DD/ 1602 TD/TT: Gardening Manager: Procedure Note Donotuseinterpreter, Image - 05/26/2023 [facility] [address] [place] [address] Mammography Report Signed Patient: Zain Esparza#: [id number] : 1975Acct:[id number] Age/Sex: 47 / FADM Date: 05/04/23 Loc: MICHAEL Attending Dr: Maddie Kim MD Ordering Physician: Jaja Kimults: 1Negative Date of Service: 05/04/23Follow Up: 1 Year From Orig inal Mammogram Procedure(s): MM tomosynthesis screening BI Accession Number(s): [id number] cc: Maddie Kim EXAMINATION: MM SCREENING DIGITAL [...] in OV> 05/26/23 1503 DD/ 1602 TD/TT: Gardening Manager: Maddie Kim MD IMG BI PROCEDURES Final Result * HPV GENOTYPES 16,18/45 (12/20/2020 12:00 AM EDT) HPV 16 RNA NOT DETECTED NOT DETECTED [facility] HPV 18/45 RNA NOT DETECTED NOT DETECTED [facility] Comment: Methodology: Industrial [employer] Mediated Amplification The analytical performance characteristics of this assay have been determined by [employer]. The modifications have not been cleared or approved by the FDA. This assay has been validated pursuant to the CLIA regulations and is used for clinical purposes. 12/20/2020 Maddie Kim MD LAB CYTOLOGY ORDERABLES Final Result [facility] [address] from Last 3 Months or Most Recently Relevant to Health Maintenance Insurance [id number]ARE < 65 [place] [id number] Care Teams Customer Experience Leader Relationship Specialty Start Date End Date Maddie Kim MD [address] [place] [phone] PCP - General Family Medicine 07/12/20 [facility] 12/25/24
--- OUTSIDE RECORDS SUMMARY | 2025-01-19 15:38 | XMS_ITS | Encounter Summary ---
Author Organization [employer] Address [address] [place] [address] [address] [place] [address] Care Team Providers Care Dry Mill Operator Name Role Phone Maddie Kim MD Primary Care Provider [phone] Encounter Details Date Type Department Care Team (Late Contact Info) Description 01/27/2022 Telephone [facility] [address] [place] [phone] Maddie Kim MD [address] [place] [phone] Social History Tobacco Use Types Packs/Day Years [...] Department Care Team (Late Contact Info) Description 03/27/2025 1:30 PM EST Office Visit [facility] [address] [place] [phone] Maddie Kim MD [address] [place] [phone] documented as of this encounter Visit Diagnoses Not on filedocumented in this encounter Care Teams Dry Mill Operator Relationship Specialty Start Date End Date Maddie Kim MD [address] [place] [phone] PCP - General Family Medicine 07/12/20 [facility] 01/17/22 01/05/25 [facility] 12/25/24 documented as of this encounter
--- OUTSIDE RECORDS SUMMARY | 2025-01-19 15:38 | XMS_ITS | Data Portability ---
Author Organization [employer] [facility], [facility] Address [address] [place] [address] Care Team Providers Care Pest Control Operator Name Role Phone HIM CCA OTHER Unavailable Primary Care Provider Assessment Encounter Date Assessment Date Assessment LastModified by Organization Details LastModified Time 09/13/2024 09/13/2024 As noted, we ghassan e called to see this patient regarding concerns of vaginal discharge. Evaluation in the field was performed by my nursing program director colleague, as noted above, I provided [...] Assessment and Plan as documented by the Podiatry Doctor. We discussed the diagnostic uncertainty of home [...] Assessment and Plan as documented by the Podiatry Doctor. We discussed the diagnostic uncertainty of home [...] Assessment and Plan as documented by the Podiatry Doctor. We discussed the diagnostic uncertainty of home [...] to call 911- verbalized understanding of instruction [email or web address] Not available 10/26/2024 18:03:11 11/22/2024 11/22/2024 I provided real -time medical direction via phone for this encounter and was available for additional phone-based assistance as needed. I have reviewed and agree with the Assessment and Plan as documented by the Podiatry Doctor. Patient given the opportunity to ask questions. Our service contacted for an assessment of: Migraine KO As per above, patient with acute onset of MHA this am. Has taken usual meds. No NSAIDs today. Has tolerated Toradol in the past. Per nursing program director on the scene, VSS, AF Please read the nursing program director note for their exam findings. Impression: Plan: [...] Lab BMP, serum or plasma 2024 025 [facility], [address] [place] [address], [id number] 16:35:51 BMP, serum or plasma 2024 025 [facility], [address] [place] [address], [id number] 14:22:54 urinalysis, dipstick 2024 025 [facility], [address] [place] [address], [id number] 14:22:31 Referral None recorded. Procedures None recorded. Surgeries None recorded. Imaging None recorded. Medication Orders ketorolac 30 mg/mL injection solution 2024 025 [facility], [address] [place] [address], [id number], 11:19:38 ketorolac 30 mg/mL injection solution 2024 025 [email or web address] [facility], [address] [place] [address], [id number], 09/07/202 5 17:39:06 acetaminoph en 500 mg tablet [id number], [address] [place], [id number], 5 15:18:54 ketorolac 30 mg/mL injection solution [address] [facility] [address] [facility], [address] [place] [address], [id number], 5 15:18:54 Patient TargetsNo targets recorded. Patient [...] Name and Address Organization Details Recorded Time 35083 Dilantin medicatio n Not available Not available Not available 02/22/2024 82814 0 RxNorm Not Available [facility] 5 14:48:20 74422 sulfameth oxazole medicatio n Not available Not available Not available 02/22/2024 73567 RxNorm Not Available [facility] 5 14:48:20 71767 trimethop rim medicatio n Not available Not available Not available 02/22/2024 16165 RxNorm Not [facility] 5 10:23:13 80496 Product containin g penicilli n (product) medicatio n Not available Not available Not available 02/22/2024 58783 8001 SNOMED Not Available [facility] 5 14:48:20 73701 penicilli n G benzathin e medicatio n Not available Not available Not available 02/22/2024 7982 [facility] 5 14:48:20 46242 penicilli n G procaine medicatio n Not available Not available Not available 02/22/2024 7983 RxNorm Not Available [facility] 5 14:48:20 08262 Non-stero idal anti-infl ammatory agent (substanc e) medicatio n other Not available high 10/06/2024 99846 5008 SNOMED H/o GIB and gastr ic ulcer s with all NSAID s - told not to take Fawn Coelho MD [address] [facility],[address], [place], [phone], [facility] 5 15:15:41 Medications Name Sig Start Date [...] Vitals Date Recorded Heart rate Oxygen saturation Body temperature Respiratory rate Systolic And Diastolic Provider Name and Address Organization Details Last Updated DateTime 5 79 /min 98 % 97.7 [degF] 16 /min 126/90 mm[Hg] Not Available [employer] 5 13:58:51 Date Recorded Respiratory rate Oxygen saturation Body temperature Heart rate Systolic And Diastolic Provider Name and Address Organization Details Last Updated DateTime 5 16 /min 99 % 98.8 [degF] 89 /min 116/80 mm[Hg] Not Available [employer] 5 15:10:26 Date Recorded Heart rate Respiratory rate Body temperature Oxygen saturation Systolic And Diastolic Provider Name and Address Organization Details Last Updated DateTime 5 87 /min 18 /min 97.7 [degF] 99 % 152/98 mm[Hg] Not Available [employer] 5 14:54:26 Date Recorded Body temperature Body height Respiratory rate Body weight Heart rate Oxygen saturation Systolic And Diastolic Provider Name and Address Organization Details Last Updated DateTime 5 98.1 [degF] 157.48 cm 16 /min 54313.4 8 g 73 /min 99 % 158/84 mm[Hg] Not Available [employer] 5 17:36:19 Date Recorded Oxygen saturation Heart rate Respiratory rate Body temperature Systolic And Diastolic Provider Name and Address Organization Details Last Updated DateTime 5 99 % 72 /min 18 /min 98.5 [degF] 145/92 mm[Hg] Not Available [employer] [facility] production 11:04:48 Social History None recorded. Functional Status None recorded. Mental Status None recorded. Family History Nothing Reported. Medical History No medical history recorded. Gynecological HistoryNo gynecological history recorded. Obstetrics History GPAL:G 0 P 0 0 0 0 Past Encounters Encounter ID Performer Location Encounter Start Date Encounter Closed Date Diagnosis/Indication Diagnosis SNOMED-CT Code Diagnosis ICD10 Code Diagnosis IMO Codes Diagnosis Note [id number] KALYN YAO MD [facility] [address] [place] [id number] 02/22/2024 21:29:01 02/23/2024 18:48:12 Urinary symptoms 899814487 R39.9 Evaluation in the field was performed by my nursing program director colleague, as noted above, I provided [...] first dose was administer ed by the nursing program director. -To alleviate the burning sensation, a prescripti [...] or flank pain or any other concerns. [id number] Fawn Coelho MD [facility] [address] [place] [id number] 02/23/2024 14:34:12 02/23/2024 18:56:04 Urinary symptoms 577031042 R39.9 [id number] Aramis Gallardo MD [facility] [address] [place] [id number] 02/26/2024 11:22:16 02/28/2024 11:56:29 Urinary symptoms 940330269 R39.9 Fever 164161075 R50.9 [id number] Jessica Hadley MD [facility] [address] [place] [id number] 03/23/2024 13:03:05 03/25/2024 16:45:46 Urinary symptoms 712451883 R39.9 As noted, we were called to see this patient regarding concerns of urinary symptoms. Evaluation in the field was performed by my nursing program director colleague, as noted above, I provided [...] changes to consciousn ess, chest pain, dypsnea. [id number] [facility] - [address] [phone] 04/01/2024 18:50:28 04/01/2024 19:49:17 Low back pain 055381441 M54.50 48 year old female with a [...] of the lower extremitie s. Prior to [facility] visit she took an excedrin which is helping bring the paind own. Exam notable for normal vital signs, neurologic exam is grossly normal. Presentati on consistent with acute on chronic lumbar radiculopa thy, no red flags noted. I have reviewed and agree with the assessment and plan as documented by the nursing program director. I provided real-time medical direction for this encounter and was immediatel y available to provide additional phone-base d assistance as needed. We discussed the diagnostic uncertaint y of home visits and associated risks. We discussed the need to seek care urgently/e mergently in the setting of any new or worsening symptoms. [id number] [facility] - [address] [phone] 04/18/2024 20:44:44 04/19/2024 19:18:03 Essential hypertension 98584226 I10 [id number] [facility] - [address] [phone] 06/17/2024 11:35:49 06/17/2024 13:51:22 Lightheadedness 717064134 R42 [id number] DELROY DIAZ MD [place] [id number] 07/06/2024 17:58:16 07/07/2024 17:54:54 Acute headache 033147507 R51.9 [id number] Leni Joseph MD [facility] [place] [id number] 09/13/2024 13:58:48 09/14/2024 15:14:26 Vaginal discharge 386605012 N89.8 84174 Dizziness 683887128 R42 [id number] RHEA TOLENTINO MD [place] [id number] 10/05/2024 14:54:45 10/06/2024 20:52:55 Spasm of back muscles 098627475 M62.830 [id number] Fawn Coelho MD [place] [id number] 10/06/2024 14:54:22 10/06/2024 21:05:01 Low back pain 837435323 M54.50 [id number] TRISTON LOJA NP, [address] [place] [id number] 10/26/2024 17:36:16 10/27/2024 15:59:17 Acute low back pain 871123566 M54.50 [id number] Fawn Coelho MD [address] [phone] 11/22/2024 11:04:45 11/22/2024 12:18:43 Acute migraine 4900827457 67518 G43.909 [id number] Health Concerns Section Related Observation LastModified by Organization Detai ls LastModified Time None Recorded Concern Status LastModified by Organization Details LastModified Time None Recorded Advance Directives Directive None Recorded Payers Insurance Date Sequence Insurance Name Policy Number Policy Fernandez Covered Member ID Fernandez Member ID Guarantor Name 11/22/2024 1 [facility] - DOS ON OR AFTER 2022 - DUAL ELIGIBLE - [facility] OPTIONS AND ONE CARE (MEDICARE REPLACEMENT/ADV ANTAGE - HMO) Atiya Rollearez [id number] Atiya Y Dotson Notes Date Note Type [...] Replacement (e.g., Hip, Knee) PMH Reviewed at 09/13/2024 Allergies Reviewed at 09/13/2024:32 Comments: Member believes [...] signs of when to seek emergency care. Podiatry Doctor Organization Information for Sandro Kearney Business Legal Name: [facility] Address: [address] [place] [address], [place] [address], [employer] Emergency Services Manager: Jeff Bautista MD CLIA No.: [id number] Podiatry Doctor POC Test Results from Sandro Kearney [facility] (13:55:20) pH: 7.42pH units pCO2: 34.6mmHg pO2: [...] ...................... ...................... ...................... ...................... ...................... ...................... ......... Podiatry Doctor Note From Sandro Kearney: This 48-year-old female with a history including but not limited to bipolar disorder, GERD, HTN, anemia requested a visit today address brown vaginal discharge since Sunday. Patient states she believes it's a yeast infection, purchased OTC Monistat and Vagisil topical with no improvement in symptoms. Patient states she's experienced vaginal burning since starting the Vagisil. Patient contacted her INTERNAL COMMUNICATIONS WRITER who recommended being swabbed before being treated [...] instructed her to follow up with her INTERNAL COMMUNICATIONS WRITER to be swabbed, continue to stay well hydrated and present to the emergency department for any new or worsening severe symptoms such as uncontrollable nausea/vomiting, severe abdominal or flank pain, high fever, altered mental status. The patient was given the opportunity to ask questions and is agreeable to this plan. [facility] Lab Orders: BMP, serum or plasma: Performed urinalysis, dipstick: Performed ...................... ...................... ...................... ...................... ...................... ...................... ......... [facility] Consulted: Leni Joseph ...................... ...................... ...................... ...................... ...................... ...................... ......... Disposition: Lizette Joseph MD [address] [place] [address],[address], [place], [phone], [employer] 09/13/2024 14:20:16 10/05/2024 text/html ROS as noted in the [facility] CRC Nurse Triage Notes (Bari Salinas): [...] Hip, Knee)PMH Reviewed at 10/05/2024Allergies Reviewed at 10/05/2024Comments: 49 y.o female complains of Back Pain [...] ...................... ...................... ...................... ...................... ...................... ...................... ......... Podiatry Doctor Note From Jacob Miramontes: Pt is a [...] Sunday. Red Flag warnings were gone over. [facility] Medication Orders: acetaminophen 500 mg tablet: Administered ketorolac 30 mg/mL injection solution: Administered ...................... ...................... ...................... ...................... ...................... ...................... ......... [facility] Consulted: Rhea Tolentino ...................... ...................... ...................... ...................... ...................... ...................... ......... Disposition: Fulfilled RHEA TOLENTINO MD [address] [facility],[address], [place], [address], [place] [facility] 10/06/2024 13:36:11 10/06/2024 text/html CRC Nurse Triage [...] to seek emergency care -Bobo Cordova RN Podiatry Doctor Organization Information for Temo Martinez Business Legal Name: [employer]. Address: [address] [place] [address], [employer] Emergency Services Manager: Benjy Haile MD CLIA No.: [id number] Podiatry Doctor POC Test Results from Temo Martinez [facility] Chem8+ (15:01:39) Na: 142mEq/L K: 3.9mEq/L Cl: 109mEq/L iCa: 1.26mmol/L TCO2: 21mmol/L Glu: 96mg/dL BUN: 10mg/dL Crea: 0.8mg/dL Hct: 40% Hb: 13.6g/dL Ammol/L Cartridge Number: [id number] Attachments uploaded as part of this test result can be found under Documents section. ...................... ...................... ...................... ...................... ...................... ...................... ......... Podiatry Doctor Note From Temo Martinez: Encountered patient conscious, solar and ambulatory. 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 [facility] and was treated with Toradol, was looking for a repeat dose today to hold her over until her primary care appointment on 10/07/24. BMP performed, values uploaded via [facility]. Skin warm, dry and of appropriate color for ethnicity. Head and neck, free of trauma and edema. -JVD. Breath sounds present clear and equal bilaterally. Abdomen is soft, nontender and non-distended. Extremities free of trauma edema. [facility] contacted: reports multiple administrations of Toradol is not part of [facility] standard [facility] and is also likely to be detrimental to patient. [facility] encourages patient to continue to take her prescribed Flexeril and Tylenol and to also request evaluation by a energy trader while at her primary care appointment tomorrow. Patient was additionally encouraged to seek further medical attention including 911 if she were to develop chest pain and shortness of breath or uncontrollable pain. Patient verbalizes understanding of the plan and states she is comfortable remaining home today. [facility] Lab Orders: BMP, serum or plasma: Performed ...................... ...................... ...................... ...................... ...................... ...................... ......... [facility] Consulted: Fawn Coelho ...................... ...................... ...................... ...................... ...................... ...................... ......... Disposition: Fulfilled Fawn Coelho MD [address] [place] [address],[facility], [place], [address] [employer] [place] 10/06/2024 16:28:04 10/26/2024 text/html ROS as noted in the [facility] CRC Nurse Triage Notes (Zaida Zambrano): [...] Knee), Chronic Back Pain PMH Reviewed at 10/26/2024 - 16:35 Allergies Reviewed at 10/26/2024 - 16:35 Comments: 49 y.o female complains of Back [...] ...................... ...................... ...................... ...................... ...................... ...................... ......... Podiatry Doctor Note From Vaughn Ellington: SC6 responds to the listed address for a 49 yof w/ a c/c of back pain. Upon arrival on scene, pt answers the door to let [facility] inside her small and well-kept apartment she [...] no bladder or bowel incontinence is reported. [facility] obtains a focused assessment on pt's back. No visible or gross abnormalities are noted and pt has full ROM w/ some pain relief w/ back extension. Tenderness upon palpation to the paraspinous regions L and R of L2-L5. No discoloration, bruising, or rash are noted and area is normothermic to touch. [facility] discusses using cold packs and moist heat as well as a topical analgesic to help w/ the pain. [facility] contacts [facility] and discusses the above. After confirming no known kidney issues, GI bleeds, or anticoagulation and reconfirming allergies, [facility] orders 15mg toradol IM and recommends pt contact her PCP. [facility] administers 15mg toradol in the R deltoid using aseptic technique. Red flag warning signs are discussed w/ the pt and she thanks [facility] for coming. [facility] is clear. Report completed by FAVIO Ellington [id number]. [facility] Medication Orders: ketorolac 30 mg/mL injection solution: Administered Comment: R deltoid ...................... ...................... ...................... ...................... ...................... ...................... ......... [facility] Consulted: Triston Loja ...................... ...................... ...................... ...................... ...................... ...................... ......... Disposition: Fulfilled TRISTON LOJA NP, S [address] [facility],[address], [place], [address], [employer] 10/26/2024 18:18:44 11/22/2024 text/html CRC Nurse Triage [...] PMH Reviewed at 11/22/2024 Allergies Reviewed at 11/22/2024: Comments: 49 y.o female complains of Headache [...] ...................... ...................... ...................... ...................... ...................... ...................... ......... Podiatry Doctor Note From Gunnar Cobb: Arrived to find [...] VS as noted. No red flag symptoms. [facility] contacted advised 30mg toradol IM. 30mg toradol given in right deltoid without incident. Patient in agreement with plan. ...................... ...................... ...................... ...................... ...................... ...................... ......... [facility] Consulted: Fawn Coelho ...................... ...................... ...................... ...................... ...................... ...................... ......... Disposition: Fulfilled Fawn Coelho MD [address] [facility],[address], [place], [address], [facility] 11/22/2024 11:55:19 OBGyn Episode No OBEpisode recorded.
--- OUTSIDE RECORDS SUMMARY | 2025-01-19 15:38 | XMS_ITS | Encounter Summary ---
Author Organization [employer] Address [address] [place] [address] [address] [place] [address] Care Team Providers Care Manager Respiratory Name Role Phone Maddie Kim MD Primary Care Provider [phone] Encounter Details Date Type Department Care Team ([facility] st Contact Info) Description 05/15/2023 Orders Only [facility] [address] [place], [place] [phone] Maddie Kim MD [address] [place], [place] [phone] Social History Tobacco Use Types Packs/Day Years [...] Description 03/27/2025 1:30 PM EST Office Visit [facility] [address] [place] [address] [phone] Maddie Kim MD [address] [place] [address] [phone] documented as of this encounter Visit Diagnoses Not on filedocumented in this encounter Additional Health Concerns Assessment Noted Time PHQ-9 Depression Total Score: 0 05/30/19 23 3:26 PM EDT documented as of this encounter Care Teams Manager Respiratory Relationship Specialty Start Date End Date Maddie Kim MD [address] [place] [address] [phone] PCP - General Family Medicine 07/12/20 Willie Gage 01/17/22 01/05/25 [facility] 12/25/24 documented as of this encounter
--- OUTSIDE RECORDS SUMMARY | 2025-01-19 15:38 | XMS_ITS | Encounter Summary ---
Author Organization [employer] Address [address] [place] [address] [address] [place] [address] Care Team Providers Care Advertising Traffic Manager Name Role Phone Maddie Kim MD Primary Care Provider [phone] Reason for Visit * Reason Onset Date Comments Call Back Request 07/26/2023 Encounter Details Date Type Department Care Team ([facility] Contact Info) Description 07/26/2023 Telephone [facility] [address] [place], [place] [phone] Maddie Kim MD [address] [place], [place] [phone] Call Back Request Social History Tobacco Use [...] 07/27/2023 9:31 AM EDT Tc returned to [place], questioning pt.'s risperidone inj rx on med list they received. Looking back in chart, this was discontinued after inpatient hosp in 2020 due to noncompliance with injections. This was the last time it was prescribed. [facility] is requesting this is taken off our med list for accuracy, thank you! * Telephone Encounter - Zach Carlson - 07/26/2023 4:12 PM EDT Tc from [place] with Willie Gage requesting a call back for a med reconciliation. Please contact Georgie at [phone]. documented in this encounter Plan of Treatment Upcoming Encounters Date Type Department Care Team (Late st Contact Info) Description 03/27/2025 1:30 PM EST Office Visit [facility] [address] [place] [address] Maddie Kim MD [address] [place], [place] [phone] documented as of this encounter Visit Diagnoses Not on filedocumented in this encounter Additional Health Concerns Assessment Noted Time PHQ-9 Depression Total Score: 3 06/15/19 24 11:48 AM EDT documented as of this encounter Care Teams Advertising Traffic Manager Relationship Specialty Start Date End Date Maddie Kim MD [address] [place] [address] PCP - General Family Medicine 07/12/20 Willie Gage 01/17/22 01/05/25 [facility] 12/25/24 documented as of this encounter
--- OUTSIDE RECORDS SUMMARY | 2025-01-19 15:38 | XMS_ITS | Encounter Summary ---
Author Organization [employer] Address [address] [place] [address] 7t [place] [address] Care Team Providers Care Car Painter Name Role Phone Maddie Kim MD Primary Care Provider [phone] Encounter Details Date Type Department Care Team ([facility] st Contact Info) Description 02/22/2024 Orders Only [facility] [address] [place], [place] [phone] Maddie Kim MD [address] [place], [place] [phone] Social History Tobacco Use Types Packs/Day Years [...] Description 03/27/2025 1:30 PM EST Office Visit [facility] [address] [place] [address] Maddie Kim MD [address] [place] [address] documented as of this encounter Visit Diagnoses Not on filedocumented in this encounter Additional Health Concerns Assessment Noted Time PHQ-9 Depression Total Score: 3 06/15/19 24 11:48 AM EDT documented as of this encounter Care Teams Car Painter Relationship Specialty Start Date End Date Maddie Kim MD [address] [place] [address] PCP - General Family Medicine 07/12/20 [facility] 01/17/22 01/05/25 [facility] 12/25/24 documented as of this encounter
--- OUTSIDE RECORDS SUMMARY | 2025-01-19 15:38 | XMS_ITS | Encounter Summary ---
Author Organization [employer] Address [address] [place] [address] 7t [place] [address] Care Team Providers Care Wood Carving Lathe Operator Name Role Phone Maddie Kim MD Primary Care Provider [phone] Encounter Details Date Type Department Care Team ([facility] st Contact Info) Description 06/13/2023 Orders Only [facility] [address] [place], [place] [phone] Maddie Kim MD [address] [place], [place] [phone] Social History Tobacco Use Types Packs/Day Years [...] usual. Not at all 06/15/2023 11:48 AM ELIOT Ashlyn Meza MA Thoughts that you would be better off or hurting yourself in some way Not at all 06/15/2023 11:48 AM Katelynn Riojas MA Patient Health Questionnaire-9 Score 3 06/15/2023 11:48 AM ELIOT Magnolia Meza MA documented as of this encounter Plan of Treatment Upcoming Encounters Date Type Department Care Team (Late st Contact Info) Description 03/27/2025 1:30 PM EST Office Visit [facility] [address] [place] [address] Maddie Kim MD [address] [place] [address] documented as of this encounter Visit Diagnoses Not on filedocumented in this encounter Additional Health Concerns Assessment Noted Time PHQ-9 Depression Total Score: 0 05/30/19 23 3:26 PM EDT documented as of this encounter Care Teams Wood Carving Lathe Operator Relationship Specialty Start Date End Date Maddie Kim MD [address] [place] [address] PCP - General Family Medicine 07/12/20 [facility] 01/17/22 01/05/25 [facility] 12/25/24 documented as of this encounter
--- OUTSIDE RECORDS SUMMARY | 2025-01-19 15:39 | XMS_ITS | Encounter Summary ---
Author Organization [employer] Address [address] [place] [address] 7 [place] [address] Care Team Providers Care Clamp Jig Assembler Name Role Phone Maddie Kim MD Primary Care Provider [phone] Encounter Details Date Type Department Care Team (Late Contact Info) Description 11/14/2022 Orders Only [facility] [address] [place] [phone] Maddie Kim MD [address] [place] [address] [phone] Social History Tobacco Use Types Packs/Day Years [...] Description 03/27/2025 1:30 PM EST Office Visit [facility] [address] [place] [phone] Maddie Kim MD [address] [place] [address] [phone] documented as of this encounter Visit Diagnoses Not on filedocumented in this encounter Additional Health Concerns Assessment Noted Time PHQ-9 Depression Total Score: 0 05/30/19 23 3:26 PM EDT documented as of this encounter Care Teams Clamp Jig Assembler Relationship Specialty Start Date End Date Maddie Kim MD [address] [place] [address] PCP - General Family Medicine 07/12/20 [facility] 01/17/22 01/05/25 [facility] 12/25/24 documented as of this encounter
--- OUTSIDE RECORDS SUMMARY | 2025-01-19 15:39 | XMS_ITS | Encounter Summary ---
Author Organization [employer] Address [address] [place] [address] 7 [place] [address] Care Team Providers Care Contract Driver Name Role Phone Maddie Kim MD Primary Care Provider [phone] Reason for Visit * Reason Onset Date Comments Hospital Follow-up 03/28/2024 Encounter Details Date Type Department Care Team ([facility] Contact Info) Description 03/28/2024 Telephone [facility] [address] [place] [address] [phone] Maddie Kim MD [address] [place], [place] [phone] Hospital Follow-up Social History Tobacco Use Types [...] date: 03/27/24 Diagnosed: Hyponatremia *Send message to [place] [facility] Coordinators documented in this encounter Plan of Treatment Upcoming Encounters Date Type Department Care Team (Late st Contact Info) Description 03/27/2025 1:30 PM EST Office Visit [facility] [address] [place] [phone] Maddie Kim MD [address] [place] [phone] documented as of this encounter Visit Diagnoses Not on filedocumented in this encounter Additional Health Concerns Assessment Noted Time PHQ-9 Depression Total Score: 3 06/15/19 24 11:48 AM EDT documented as of this encounter Care Teams Contract Driver Relationship Specialty Start Date End Date Maddie Kim MD [address] [place] [phone] PCP - General Family Medicine 07/12/20 Willie Gage 01/17/22 01/05/25 [facility] 12/25/24 documented as of this encounter
--- OUTSIDE RECORDS SUMMARY | 2025-01-19 15:39 | XMS_ITS | Encounter Summary ---
Author Organization [employer] Address [address] [facility] 7t [place] [address] Care Team Providers Care Automotive Glass Mechanic Name Role Phone Maddie Kim MD Primary Care Provider [phone] Reason for Visit * Reason Comments Med Refill Encounter Details Date Type Department Care Team ([facility] st Contact Info) Description 04/12/2023 Refill [facility] [address] [place] [address] [phone] Isac Gonzalez MD [address] [place] [address] [phone] Chronic bilateral low back pain without sciatica [...] Description 03/27/2025 1:30 PM EST Office Visit [facility] [address] [place] [phone] Maddie Kim MD [address] [place] [phone] documented as of this encounter Visit Diagnoses Diagnosis Chronic bilateral low back pain without sciatica documented in this encounter Additional Health Concerns Assessment Noted Time PHQ-9 Depression Total Score: 0 05/30/19 23 3:26 PM EDT documented as of this encounter Care Teams Automotive Glass Mechanic Relationship Specialty Start Date End Date Maddie Kim MD [address] [place] [phone] PCP - General Family Medicine [facility]12[facility]20 [facility]25 [facility] 12/25/24 documented as of this encounter
--- OUTSIDE RECORDS SUMMARY | 2025-01-19 15:39 | XMS_ITS | Encounter Summary ---
Author Organization [employer] Address [address] [place] [address] 7 [place] [address] Care Team Providers Care Drawer Hardware Worker Name Role Phone Maddie Kim MD Primary Care Provider [phone] Reason for Visit * Reason Onset Date Comments FYI 02/15/2024 Encounter Details Date Type Department Care Team ([facility] Contact Info) Description 02/15/2024 Telephone [facility] [address] [place], [place] [phone] Maddie Kim MD [address] [place], [place] [phone] FY Social History Tobacco Use Types Packs/Day [...] any questions you can contact Lauren at [phone]. documented in this encounter Plan of Treatment Upcoming Encounters Date Type Department Care Team (Late st Contact Info) Description 03/27/2025 1:30 PM EST Office Visit [facility] [address] [place] [phone] Maddie Kim MD [address] [place] [phone] documented as of this encounter Visit Diagnoses Not on filedocumented in this encounter Additional Health Concerns Assessment Noted Time PHQ-9 Depression Total Score: 3 06/15/19 24 11:48 AM EDT documented as of this encounter Care Teams Drawer Hardware Worker Relationship Specialty Start Date End Date Maddie Kim MD [address] [place] [phone] PCP - General Family Medicine 07/12/20 Willie Gage 01/17/22 01/05/25 [facility] 12/25/24 documented as of this encounter
--- OUTSIDE RECORDS SUMMARY | 2025-01-19 15:39 | XMS_ITS | Encounter Summary ---
Author Organization [employer] Address [address] [place] [address] 7 [place] [address] Care Team Providers Care Mission Manager Name Role Phone Maddie Kim MD Primary Care Provider [phone] Reason for Visit * Reason Onset Date Comments Durable Medical Equipment 03/16/2022 Encounter Details Date Type Department Care Team ([facility] st Contact Info) Description 03/16/2022 Telephone [facility] [address] [place] [address] [phone] Maddie Kim MD [address] [place], [place] [phone] Durable Medical Equipment Social History Tobacco Use [...] it can fax to her landlord at [phone]. She would like the script to be to the [facility], [address] [place] [address] If any concerns please contact pt at [phone] documented in this encounter Plan of Treatment Upcoming Encounters Date Type Department Care Team (Late st Contact Info) Description 03/27/2025 1:30 PM EST Office Visit [facility] [address] [place] [phone] Maddie Kim MD [address] [place] [phone] documented as of this encounter Visit Diagnoses Not on filedocumented in this encounter Care Teams Mission Manager Relationship Specialty Start Date End Date Maddie Kim MD [address] [place] [phone] PCP - General Family Medicine 07/12/20 Willie Gage 01/17/22 01/05/25 [facility] [place] 12/25/24 documented as of this encounter
--- OUTSIDE RECORDS SUMMARY | 2025-01-19 15:39 | XMS_ITS | Encounter Summary ---
Author Organization [employer] Address [address] [place] [address] 7 [place] [address] Care Team Providers Care Harvester Operator Name Role Phone Maddie Kim MD Primary Care Provider Reason for Visit * Reason Onset Date Comments Med Refill 01/18/2025 Encounter Details Date Type Department Care Team ([facility] Contact Info) Description 01/18/2025 Refill [facility] [address] [place], [place] [phone] Maddie Kim MD [address] [place], [place] [phone] Chronic midline low back pain without sciatica Social History [...] Description 03/27/2025 1:30 PM EST Office Visit [facility] [address] [place] [address] Maddie Kim MD [address] [place] [address] documented as of this encounter Visit Diagnoses Diagnosis Chronic midline low back pain without sciatica documented in this encounter Additional Health Concerns Assessment Noted Time PHQ-9 Depression Total Score: 10 025 3:49 PM EST documented as of this encounter Care Teams Harvester Operator Relationship Specialty Start Date End Date Maddie Kim MD [address] [place] [phone] PCP - General Family Medicine 07/12/20 [facility] 12/25/24 documented as of this encounter
--- OUTSIDE RECORDS SUMMARY | 2025-01-19 15:39 | XMS_ITS | Encounter Summary ---
Author Organization [employer] Address [address] [place] [address] 7 [place] [address] Care Team Providers Care Air Conditioning Unit Assembler Name Role Phone Maddie Kim MD Primary Care Provider [phone] Reason for Visit * Reason Onset Date Comments Med Refill 04/12/2023 Encounter Details Date Type Department Care Team ([facility] st Contact Info) Description 04/12/2023 Refill [facility] [address] [place], [place] [phone] Maddie Kim MD [address] [place], [place] [phone] Chronic bilateral low back pain without sciatica [...] Description 03/27/2025 1:30 PM EST Office Visit [facility] [address] [place] [address] Maddie Kim MD [address] [place] [address] documented as of this encounter Visit Diagnoses Diagnosis Chronic bilateral low back pain without sciatica documented in this encounter Additional Health Concerns Assessment Noted Time PHQ-9 Depression Total Score: 0 05/30/19 23 3:26 PM EDT documented as of this encounter Care Teams Air Conditioning Unit Assembler Relationship Specialty Start Date End Date Maddie Kim MD [address] [place] [phone] PCP - General Family Medicine [facility]20 [facility]25 [facility] 12/25/24 documented as of this encounter
--- OUTSIDE RECORDS SUMMARY | 2025-01-19 15:39 | XMS_ITS | Continuity of Care Document ---
Author Organization [facility], [facility] [place] [facility] Address [address] [place] [address] Care Team Providers Care Nurse Navigator Name Role Phone JEAN-PIERRE MASON Primary Care Provider [phone] Assessment Encounter Date Assessment Date Assessment LastModified by Organization Details LastModified Time 11/06/2024 11/06/2024 Assessment: Pt demonstrating good L [...] ed. Medication Orders None record ed. Patient Targets Encounter Date Encounter Id Patient Goals Patient Target Last Modified By Organization Details Last Modified Time 11/06/2024 [id number] 3 weeks of Left Knee PROM motion: flexion: passive motion, left (125 degrees) Not available Not available Not available 3 weeks of Left Knee PROM motion: extension: passive motion, left (0 degrees) Not available Not available Not available extermination supervisor goal of Left Knee Strength (normal) strength: knees: flexion: left 5 (0-5) Not available Not available Not available extermination supervisor goal of Left Knee Strength (normal) strength: knees: extension: left 5 (0-5) Not available Not available Not available 3 weeks of Overall ADL's WFL Not available Not available Not available prison goal of Overall ADL's unlimited Not available Not available Not available extermination supervisor goal of Squatting performs without symptoms Not available Not available Not available 3 weeks of Gait and Stance: on level surfaces Not available Not available Not available prison goal of Gait and Stance: ambulates with no assitive devices Not available Not available Not available 3 weeks of Stairs step-to pattern Not available Not available Not available 3 weeks of Pain <2-3/10 Not available Not available Not available extermination supervisor goal of Pain 0/10 Not available Not available Not available prison goal of Stair climbing (ascending and descending stairs) reciprocally Not available Not available Not available Patient InstructionsNo instructions recorded. Reason for Referral None Reported. Problems Name Problem SNOMED Code Status Onset Date Resolution Date Notes Provider Name and Address Organization Details Recorded Time No complaints 302492402 Active Status : 'I'; Not Available [facility] 4 09:21:06 Mass of joint of left wrist 2991685116494 9101 Active 2023 Cammy Ovalle, OTR/L,CHT [address], [place], [id number] , [facility] 4 09:39:49 Fracture of ankle 64247249 Active 2023 KIM brunson [facility] 4 15:14:42 Postoperat laurence pain 596334219 Active 2024 Huma Augustin APRN [address], [place], [address] , [facility] 5 10:10:16 Problem Notes None recorded. Procedures Surgical History Date Name Laterality Status Provider Name and Address Organization Details Recorded Time 11/07/19 57155 Therapeutic Exercise (1:1) completed Julian Vera, PT [address], [place], [address], [facility] 11/09/2024 19:58:43 11/07/19 52089: Manual therapy completed Julian Vera, PT [address], [place], [address], [facility] 11/09/2024 19:58:43 10/25/19 82742 Therapeutic Exercise (1:1) completed Julian Vear, PT [address], [place], [address], [facility] 10/25/2024 23:06:22 10/25/19 07307: Manual therapy completed Julian Vera, PT [address], [place], [address], [facility] 10/25/2024 23:06:43 10/16/19 17193 Therapeutic Exercise (1:1) completed Krystina Galo, COMMUNITY HEALTH SPECIALIST [address], [place], [address], [facility] 10/16/2024 16:15:04 10/16/19 45008: Hot or Cold Pack completed Krystina Galo, COMMUNITY HEALTH SPECIALIST [address], [place], [address], [facility] 10/16/2024 16:15:20 10/11/19 85668 Therapeutic Exercise (1:1) completed Julian Vera, PT [address], [place], [address], [facility] 10/14/2024 07:11:36 10/11/19 47264: Low complexity PT Eval completed Julian Vera, PT [address], [place], [address], [facility] 10/14/2024 07:11:39 07/09/19 15608 Therapeutic Exercise (1:1) completed Na Gonzalez, COMMUNITY HEALTH SPECIALIST [address], [place], [address], [facility] 07/09/2024 21:36:12 07/09/19 90106: Neuromuscular Re-Education completed Na Gonzalez, COMMUNITY HEALTH SPECIALIST [address], [place], [address], [facility] 07/09/2024 21:40:29 07/04/19 80636: Therapeutic Activities (1:1) cancelled Hector Sams, PT [address], [place], [address], [facility] 07/02/2024 05:38:15 07/04/19 52368 Therapeutic Exercise (1:1) cancelled Hector Pyser, PT [address], [place], [address], [facility] 07/02/2024 05:38:15 07/04/19 21135: Manual therapy cancelled Hector Pyser, PT [address], [place], [address], [facility] 07/02/2024 05:38:15 07/01/19 54705: Therapeutic Activities (1:1) completed Hector Pyser, PT [address], [place], [address], [facility] 06/30/2024 10:41:35 07/01/19 50179 Therapeutic Exercise (1:1) completed Hector Pyser, PT [address], [place], [address], [facility] 06/30/2024 11:06:28 07/01/19 25034: Manual therapy completed Hector Pyser, PT [address], [place], [address], [facility] 06/30/2024 11:06:16 06/28/19 75530: Therapeutic Activities (1:1) cancelled Hector Pyser, PT [address], [place], [address], [facility] 06/26/2024 12:47:26 06/28/19 06255 Therapeutic Exercise (1:1) cancelled Hector Pyser, PT [address], [place], [address], [facility] 06/26/2024 12:47:26 06/28/19 99461: Manual therapy cancelled Hetcor Pyser, PT [address], [place], [address], [facility] 06/26/2024 12:47:26 06/25/19 87574: Therapeutic Activities (1:1) cancelled Hector Pyser, PT [address], [place], [address], [facility] 06/23/2024 16:32:14 06/25/19 73794 Therapeutic Exercise (1:1) cancelled Hector Pyser, PT [address], [place], [address], [facility] 06/23/2024 16:32:14 06/25/19 38936: Manual therapy cancelled Hector Pyser, PT [address], [place], [address], [facility] 06/23/2024 16:32:14 06/19/19 66345: Therapeutic Activities (1:1) completed Na Gonzalez, COMMUNITY HEALTH SPECIALIST [address], [place], [address], [facility] 06/18/2024 15:01:55 06/19/19 63539 Therapeutic Exercise (1:1) completed Na Gonzalez, COMMUNITY HEALTH SPECIALIST [address], [place], [address], [facility] 06/18/2024 15:01:55 06/19/19 95289: Manual therapy completed Na Gonzalez, COMMUNITY HEALTH SPECIALIST [address], [place], [address], [facility] 06/18/2024 15:01:55 06/13/19 76659: Therapeutic Activities (1:1) completed Na Gonzalez, COMMUNITY HEALTH SPECIALIST [address], [place], [address], [facility] 06/13/2024 07:27:56 06/13/19 12736 Therapeutic Exercise (1:1) completed Na Gonzalez, COMMUNITY HEALTH SPECIALIST [address], [place], [address], [facility] 06/13/2024 07:27:26 06/13/19 42349: Manual therapy completed Na Gonzalez, COMMUNITY HEALTH SPECIALIST [address], [place], [address], [facility] 06/13/2024 07:27:52 06/10/19 56357 Therapeutic Exercise (1:1) completed Hector Pyser, PT [address], [place], [address], [facility] 05/31/2024 14:22:51 06/10/19 30241: Low complexity PT Eval completed Hector Pyser, PT [address], [place], [address], [facility] 05/31/2024 14:22:53 05/01/19 50056 Therapeutic Exercise (1:1) completed Hector Pyser, PT [address], [place], [address], [facility] 04/29/2024 14:50:39 05/01/19 04187: Low complexity PT Eval completed Hector Pyser, PT [address], [place], [address], [facility] 04/29/2024 14:50:41 12/04/19 24 Sports Knee 4&1 completed Juancarlos Iyer PA-C [address], [place], [address], [facility] 12/04/2023 11:27:50 06/08/19 24 Splint_Short Arm Fiberglass_11+ completed JUNI SHELTON [facility] 06/08/2023 13:25:25 Imaging Results None recorded. Procedure Notes None recorded. Medical Equipment None Reported. Allergies Allergen ID Allergen Name Allergen Category Reaction Reaction Severity Criticality Documentation Date Start Date Code Code System Note Provider Name and Address Organization Details Recorded Time 874200 penicilli n G benzathin e medicatio n Not available Not available Not available 04/23/20232012 7982 RxNorm GOMEZ brunson [facility] 13:22:51 410330 Dilaudid medicatio n Not available Not available Not available 04/23/20232012 94952 3 RxNorm GOMEZ LAMA boy ID - [facility] 4 13:22:48 013546 Bactrim medicatio n Not available Not available Not available 04/23/20232020 39022 9 RxNorm JACKIE CISNEROS boy ID - [facility] 5 14:12:53 Medications Name Sig Start Date [...] TAKE 1 TABLET 3 TIMES A DAY BY ORAL ROUTE NEEDED FOR 14 DAYS, FOR MUSCLE PAIN/ [...] Disease N Heart Trouble N Heart Attack (PR) N Gastrointestinal Disease N Cholesterol N Diabetes [...] ICD10 Code Diagnosis IMO Codes Diagnosis Note [id number] Julian De Los Santosonso, PT [facility] [address] [place] [address] 10/10/2024 15:00:25 10/10/2024 16:11:43 Pain of left knee joint 1552775909 37979 M25.562 024012 [id number] Krystina Clover, COMMUNITY HEALTH SPECIALIST [facility] [address] [place] [address] 10/15/2024 15:18:59 10/15/2024 15:59:03 Pain of left knee joint 8663881190 25700 M25.562 913844 [id number] Julian Vera, PT [facility] [place] [facility] [address] [place] [address] 10/24/2024 15:07:10 10/24/2024 16:05:18 Pain of left knee joint 4490232205 87048 M25.562 551536 [id number] Julian Vera, PT [facility] [address] [place] [id number] 11/06/2024 15:04:33 11/06/2024 16:31:36 Pain of left knee joint 5684655474 94919 M25.562 570812 Health Concerns Section Related Observation LastModified by Organization Detai ls LastModified Time None Recorded Concern Status LastModified by Organization Details LastModified Time None Recorded Payers Encounter Date Sequence Insurance Name Policy Number Policy Fernandez Covered Member ID Fernandez Member ID Guarantor Name 11/06/2024 1 [facility] - DOS ON OR AFTER 2022 - ONE CARE (MEDICARE REPLACEMENT/ADV ANTAGE - HMO) Atiya Dotson [id number] Atiya Dotson Notes Date Note Type Note Provider Name and Address Organization Details Recorded Time 11/06/2024 text/html Pt states L knee not really painful anymore though still has buckling episodes. Julian Vera, PT [address], [place], [address], [facility] 11/09/2024 20:04:58 OBGyn Episode No OBEpisode recorded.
--- OUTSIDE RECORDS SUMMARY | 2025-01-19 15:39 | XMS_ITS | Encounter Summary ---
Author Organization [employer] Address [address] [place] [address] 7[address] [place] [address] Care Team Providers Care City Planning Aide Name Role Phone Maddie Kim MD Primary Care Provider [phone] Encounter Details Date Type Department Care Team ([facility] Contact Info) Description 01/02/2024 Orders Only [facility] [address] [place], [place] [phone] Maddie Kim MD [address] [place], [place] [phone] Social History Tobacco Use Types Packs/Day Years [...] 1:30 PM EST Office Visit [facility] [address] [place] [address] Maddie Kim MD [address] [place] [address] documented as of this encounter Visit Diagnoses Not on filedocumented in this encounter Additional Health Concerns Assessment Noted Time PHQ-9 Depression Total Score: 3 06/15/19 24 11:48 AM EDT documented as of this encounter Care Teams City Planning Aide Relationship Specialty Start Date End Date Maddie Kim MD [address] [place] [address] PCP - General Family Medicine 07/12/20 Willie [facility] 01/17/22 01/05/25 [facility] 12/25/24 documented as of this encounter
--- OUTSIDE RECORDS SUMMARY | 2025-01-19 15:39 | XMS_ITS | Encounter Summary ---
Author Organization [email or web address] Address [address] [place] [address] 7 [place] [address] Care Team Providers Care Junior High Math Teacher Name Role Phone Maddie Kim MD Primary Care Provider [phone] Reason for Visit * Reason Onset Date Comments Med Refill 01/18/2025 Encounter Details Date Type Department Care Team ([facility] Contact Info) Description 01/18/2025 Refill [facility] [address] [place], [place] [phone] Maddie Kim MD [address] [place] [address] Social History Tobacco Use Types Packs/Day Years [...] Description 03/27/2025 1:30 PM EST Office Visit [facility] [address] [place] [address] Maddie Kim MD [address] [place] [address] documented as of this encounter Visit Diagnoses Not on filedocumented in this encounter Additional Health Concerns Assessment Noted Time PHQ-9 Depression Total Score: 10 025 3:49 PM EST documented as of this encounter Care Teams Junior High Math Teacher Relationship Specialty Start Date End Date Maddie Kim MD [address] [place] [address] PCP - General Family Medicine 07/12/20 [facility] 12/25/24 documented as of this encounter
--- OUTSIDE RECORDS SUMMARY | 2025-01-19 15:39 | XMS_ITS | Encounter Summary ---
Author Organization [employer] Address [address] [place] [address] 7 [place] [address] Care Team Providers Care Cardiopulmonary Specialist Name Role Phone Maddie Kim MD Primary Care Provider [phone] Encounter Details Date Type Department Care Team ([facility] Contact Info) Description 03/30/2022 Abstract [facility] MED[facility]INE [address] [place] [address] [phone] Maddie Kim MD [address] [place] [address] [phone] Social History Tobacco Use Types Packs/Day Years [...] Description 03/27/2025 1:30 PM EST Office Visit [facility] [address] [place] [address] [phone] Maddie Kim MD [address] [place] [address] [phone] documented as of this encounter Visit Diagnoses Not on filedocumented in this encounter Care Teams Cardiopulmonary Specialist Relationship Specialty Start Date End Date Maddie Kim MD [address] [place] [address] PCP - General Family Medicine 07/12/20 Willie [facility] 01/17/22 01/05/25 [facility] 12/25/24 documented as of this encounter
--- OUTSIDE RECORDS SUMMARY | 2025-01-19 15:39 | XMS_ITS | Encounter Summary ---
Author Organization [employer] Address [address] [place] [address] 7 [place] [address] Care Team Providers Care Aerospace Stress Engineer Name Role Phone Maddie Kim MD Primary Care Provider [phone] Reason for Visit * Reason Onset Date Comments Verbal orders/ Medication question 05/08/2023 Encounter Details Date Type Department Care Team ([facility] Contact Info) Description 05/08/2023 Telephone [facility]INE [address] [place], [place] [phone] Maddie Kim MD [address] [place], [place] [phone] Verbal orders/ Medication question Social History Tobacco [...] 05/09/2023 9:54 AM EDT TC placed to [facility] at the [facility] and gave VO for halfway for 3 times a week. Pt medications were also reconciled and pt reports using Viviscal OTC for hair growth and Calcium + VitD supplements. * Telephone Encounter - Toña Castillo - 05/08/2023 4:20 PM EDT Tc from [facility] requesting some verbal orders reconciliation for skill nursing 3 times a week. [facility]oche is also requesting a call back to speak about patient's medications. documented in this encounter Plan of Treatment Upcoming Encounters Date Type Department Care Team (Late st Contact Info) Description 03/27/2025 1:30 PM EST Office Visit [facility] [address] [place] [address] Maddie Kim MD [address] [place] [address] documented as of this encounter Visit Diagnoses Not on filedocumented in this encounter Additional Health Concerns Assessment Noted Time PHQ-9 Depression Total Score: 0 05/30/19 23 3:26 PM EDT documented as of this encounter Care Teams Aerospace Stress Engineer Relationship Specialty Start Date End Date Maddie Kim MD [address] [place] [address] PCP - General Family Medicine 07/12/20 Willie Gage 01/17/22 01/05/25 [facility] 12/25/24 documented as of this encounter
--- OUTSIDE RECORDS SUMMARY | 2025-01-19 15:39 | XMS_ITS | Encounter Summary ---
Author Organization [employer] Address [address] [place] [address] 7t [place] [address] Care Team Providers Care Relish Blender Name Role Phone Maddie Kim MD Primary Care Provider [phone] Reason for Visit * Reason Comments Med Refill Encounter Details Date Type Department Care Team ([facility] Contact Info) Description 12/25/2024 Refill [facility] [address] [place], [place] [phone] Maddie Kim MD 230 [place], [place] [phone] Social History Tobacco Use Types Packs/Day Years [...] Description 03/27/2025 1:30 PM EST Office Visit [facility] [address] [place] [phone] Maddie Kim MD [address] [place] [address] documented as of this encounter Visit Diagnoses Not on filedocumented in this encounter Additional Health Concerns Assessment Noted Time PHQ-9 Depression Total Score: 9 07/05/19 25 6:48 AM EDT documented as of this encounter Care Teams Relish Blender Relationship Specialty Start Date End Date Maddie Kim MD [address] [place] [address] PCP - General Family Medicine 07/12/20 [facility] 01/17/22 01/05/25 [facility] 12/25/24 documented as of this encounter
--- OUTSIDE RECORDS SUMMARY | 2025-01-19 15:39 | XMS_ITS | Encounter Summary ---
Author Organization [employer] Address [address] [place] [address] 7 [place] [address] Care Team Providers Care Wrapper Sorter Name Role Phone Maddie Kim MD Primary Care Provider [phone] Encounter Details Date Type Department Care Team ([facility] Contact Info) Description 04/11/2022 Abstract [facility] MEDICINE [address] [place] [address] [phone] Maddie Kim MD [address] [place] [address] [phone] Social History Tobacco Use Types Packs/Day Years [...] Description 03/27/2025 1:30 PM EST Office Visit [facility]INE [address] [place] [address] [phone] Maddie Kim MD [address] [place] [address] [phone] documented as of this encounter Visit Diagnoses Not on filedocumented in this encounter Care Teams Wrapper Sorter Relationship Specialty Start Date End Date Maddie Kim MD [address] [place] [address] PCP - General Family Medicine 07/12/20 Willie [facility] 01/17/22 01/05/25 [facility] 12/25/24 documented as of this encounter
--- OUTSIDE RECORDS SUMMARY | 2025-01-19 15:39 | XMS_ITS | Encounter Summary ---
Author Organization [employer] Address [address] [place] [address] 7t [place] [address] Care Team Providers Care Hardboard Supervisor Name Role Phone Maddie Kim MD Primary Care Provider [phone] Encounter Details Date Type Department Care Team ([facility] st Contact Info) Description 12/22/2024 Telephone [facility] MED[facility]INE [address] [place], [place] [phone] Maddie Kim MD [address] [place], [place] [phone] Social History Tobacco Use Types Packs/Day Years [...] Visit [facility] MED[facility]INE [address] [place] [address] Maddie Kim MD [address] [place] [address] documented as of this encounter Visit Diagnoses Not on filedocumented in this encounter Additional Health Concerns Assessment Noted Time PHQ-9 Depression Total Score: 9 07/05/19 25 6:48 AM EDT documented as of this encounter Care Teams Hardboard Supervisor Relationship Specialty Start Date End Date Maddie Kim MD [address] [place] [address] PCP - General Family Medicine 07/12/20 Willie Gage 01/17/22 01/05/25 [facility] 12/25/24 documented as of this encounter
--- OUTSIDE RECORDS SUMMARY | 2025-01-19 15:39 | XMS_ITS | Encounter Summary ---
Author Organization [employer] Address [address] [place] [address] 7t [place] [address] Care Team Providers Care Transporter Radiology Name Role Phone Maddie Kim MD Primary Care Provider Encounter Details Date Type Department Care Team ([facility] Contact Info) Description 12/24/2024 Orders Only [facility] MEDICINE [address] [place], [place] [phone] Maddie Kim MD [address] [place] [address] Social History Tobacco Use Types Packs/Day Years [...] Description 03/27/2025 1:30 PM EST Office Visit [facility] MEDICINE [address] [place] [phone] Maddie Kim MD [address] [place] [phone] documented as of this encounter Visit Diagnoses Not on filedocumented in this encounter Additional Health Concerns Assessment Noted Time PHQ-9 Depression Total Score: 9 07/05/19 25 6:48 AM EDT documented as of this encounter Care Teams Transporter Radiology Relationship Specialty Start Date End Date Maddie Kim MD [address] [place] [address] PCP - General Family Medicine 07/12/20 Willie Gage 01/17/22 01/05/25 [facility] 12/25/24 documented as of this encounter
--- OUTSIDE RECORDS SUMMARY | 2025-01-19 15:39 | XMS_ITS | Encounter Summary ---
Author Organization [employer] Address [address] [place] [address] 7 [place] [address] Care Team Providers Care Customer Service Representative Teacher Name Role Phone Maddie Kim MD Primary Care Provider [phone] Reason for Visit * Reason Onset Date Comments c/b request 11/10/2022 Encounter Details Date Type Department Care Team ([facility] Contact Info) Description 11/10/2022 Telephone [facility] [address] [place] [address] [phone] Maddie Kim MD [address] [place], [place] [phone] c/b request Social History Tobacco Use Types [...] to medication reconciliation. Please contact [employer] at [phone] documented in this encounter Plan of Treatment Upcoming Encounters Date Type Department Care Team (Late st Contact Info) Description 03/27/2025 1:30 PM EST Office Visit [facility] [address] [place] [address] Maddie Kim MD [address] [place] [address] documented as of this encounter Visit Diagnoses Diagnosis Gastroesophageal reflux disease without esophagitis Esophageal reflux documented in this encounter Additional Health Concerns Assessment Noted Time PHQ-9 Depression Total Score: 0 05/30/19 23 3:26 PM EDT documented as of this encounter Care Teams Customer Service Representative Teacher Relationship Specialty Start Date End Date Maddie Kim MD [address] [place] [address] [phone] PCP - General Family Medicine 07/12/20 Willie [facility]age 01/17/22 01/05/25 [facility] 12/25/24 documented as of this encounter
--- OUTSIDE RECORDS SUMMARY | 2025-01-19 15:39 | XMS_ITS | Encounter Summary ---
Author Organization [employer] Address [address] [place] [address] 7 [place] [address] Care Team Providers Care Heavy Repairer Name Role Phone Maddie Kim MD Primary Care Provider [phone] Reason for Visit * Reason Onset Date Comments Med Refill 01/14/2025 Encounter Details Date Type Department Care Team ([facility] Contact Info) Description 01/14/2025 Refill [facility] [address] [place], [place] [phone] Maddie Kim MD [address] [place], [place] [phone] Chronic midline low back pain without sciatica [...] Office Visit [facility] [address] [place] [address] Maddie Kim MD [address] [place] [address] documented as of this encounter Visit Diagnoses Diagnosis Chronic midline low back pain without sciatica documented in this encounter Additional Health Concerns Assessment Noted Time PHQ-9 Depression Total Score: 10 025 3:49 PM EST documented as of this encounter Care Teams Heavy Repairer Relationship Specialty Start Date End Date Maddie Kim MD [address] [place] [phone] PCP - General Family Medicine 07/12/20 [facility] 12/25/24 documented as of this encounter
--- OUTSIDE RECORDS SUMMARY | 2025-01-19 15:39 | XMS_ITS | Encounter Summary ---
Author Organization [email or web address] Address [address] [place] [address] 7 [place] [address] Care Team Providers Care Drill Operator Name Role Phone Maddie Kim MD Primary Care Provider [phone] Reason for Referral * Consultation (Routine) - Closed Specialty Diagnoses / Procedures Referred By Sindi mejia Referred To Contact Nutrition Diagnoses Class 2 severe obesity with serious comorbidity and body mass index (BMI) of 39.0 to 39.9 in adult, unspecified obesity type Maddie Kim MD [address] [place] [address] Phone: tel: fax: Referral ID Status Reason Start Date Expiration Date V isits Requested Visits Authorized [id number] Closed Consult and Treat 04/06/2023 04/05/2024 1 1 Encounter Details Date Type Department Care Team (Late st Contact Info) Description 04/06/2023 Orders Only [facility] [address] [place] [address] [phone] Maddie Kim MD [address] [place] [address] [phone] Class 2 severe obesity with serious comorbidity [...] Office Visit [facility] 230 [place] [address] Maddie Kim MD 230 [place] [address] Scheduled Referrals Name Type Priority Associated Diagnoses [...] PM EDT Narrative 05/26/2023 3:06 PM EDT [facility] [address] [place] [address] Mammography Report Signed Patient: Atiya Esparza MR#: [id number] : 1975 Acct:[id number] Age/Sex: 47 / F ADM Date: 05/04/23 Loc: MICHAEL Attending Dr: Maddie Kim MD Ordering Physician: Maddie Kim Results: 1Negative Date of Service: 05/04/23 Follow Up: 1 Year From Orig inal Mammogram Procedure(s): MM tomosynthesis screening BI Accession Number(s): [id number] cc: Maddie Kim EXAMINATION: MM SCREENING DIGITAL [...] in OV> 05/26/23 1503 DD/ 1602 TD/TT: Senior Research Analyst: Procedure Note Donotuseinterpreter, Image - 05/26/2023 [facility] [address] [place] [address] Mammography Report Signed Patient: Zain Esparza#: [id number] : 1975Acct:[id number] Age/Sex: 47 / FADM Date: 05/04/23 Loc: MICHAEL Attending Dr: Maddie Kim MD Ordering Physician: Jaja Kimults: 1Negative Date of Service: 05/04/23Follow Up: 1 Year From Orig inal Mammogram Procedure(s): MM tomosynthesis screening BI Accession Number(s): [id number] cc: Maddie Kim EXAMINATION: MM SCREENING DIGITAL [...] in OV> 05/26/23 1503 DD/ 1602 TD/TT: Senior Research Analyst: Maddie Kim MD IMG BI PROCEDURES [...] documented as of this encounter Care Teams Drill Operator Relationship Specialty Start Date End Date Maddie Kim MD 230 [place] [address] PCP - General Family Medicine 07/12/20 Willie Gage 01/17/22 01/05/25 [facility] 12/25/24 documented as of this encounter
--- OUTSIDE RECORDS SUMMARY | 2025-01-19 15:39 | XMS_ITS | Encounter Summary ---
Author Organization [employer] Address [address] [place] [address] 7 [place] [address] Care Team Providers Care Vessel Engineer Name Role Phone Maddie Kim MD Primary Care Provider [phone] Encounter Details Date Type Department Care Team ([facility] Contact Info) Description 08/10/2024 Orders Only [facility] 230 [place], [place] [phone] Maddie Kim MD 230 [place], [place] [phone] Social History Tobacco Use Types Packs/Day Years [...] 03/27/2025 1:30 PM EST Office Visit [facility] 230 [place] [address] Maddie Kim MD 230 [place] [address] documented as of this encounter Visit Diagnoses Not on filedocumented in this encounter Additional Health Concerns Assessment Noted Time PHQ-9 Depression Total Score: 9 07/05/19 25 6:48 AM EDT documented as of this encounter Care Teams Vessel Engineer Relationship Specialty Start Date End Date Maddie Kim MD 230 [place] [address] PCP - General Family Medicine 07/12/20 Willie Gage 01/17/22 01/05/25 [facility] 12/25/24 documented as of this encounter
--- OUTSIDE RECORDS SUMMARY | 2025-01-19 15:39 | XMS_ITS | Encounter Summary ---
Author Organization [employer] Address [address] [place] [address] 7t [place] [address] Care Team Providers Care Banana Room Cutter Name Role Phone Maddie Kim MD Primary Care Provider Encounter Details Date Type Department Care Team ([facility] Contact Info) Description 06/26/2022 Abstract [facility] [address] [place] [address] Maddie Kim MD [address] [place] [address] [phone] Social History Tobacco Use Types Packs/Day Years [...] Upcoming Encounters Date Type Department Care Team ([facility] Contact Info) Description 03/27/2025 1:30 PM EST Office Visit [facility] 230 [place] [address] Maddie Kim MD [address] [place] [address] documented as of this encounter Visit Diagnoses Not on filedocumented in this encounter Additional Health Concerns Assessment Noted Time PHQ-9 Depression Total Score: 0 05/30/19 23 3:26 PM EDT documented as of this encounter Care Teams Banana Room Cutter Relationship Specialty Start Date End Date Maddie Kim MD 230 [place] [address] PCP - General Family Medicine 07/12/20 Willie Gage 01/17/22 01/05/25 [facility] 12/25/24 documented as of this encounter
--- OUTSIDE RECORDS SUMMARY | 2025-01-19 15:39 | XMS_ITS | Encounter Summary ---
Author Organization [employer] Address [address] [facility] 7t [place] [address] Care Team Providers Care Cocoa Milling Machine Operator Name Role Phone Maddie Kim MD Primary Care Provider [phone] Reason for Visit * Reason Comments Med Refill Encounter Details Date Type Department Care Team ([facility] st Contact Info) Description 04/12/2023 Refill [facility] [address] [place] [address] [phone] Isac Gonzalez MD [address] [place] [address] [phone] Chronic bilateral low back pain without sciatica [...] Description 03/27/2025 1:30 PM EST Office Visit [facility] [address] [place] [address] Maddie Kim MD [address] [place] [address] documented as of this encounter Visit Diagnoses Diagnosis Chronic bilateral low back pain without sciatica documented in this encounter Additional Health Concerns Assessment Noted Time PHQ-9 Depression Total Score: 0 05/30/19 23 3:26 PM EDT documented as of this encounter Care Teams Cocoa Milling Machine Operator Relationship Specialty Start Date End Date Maddie Kim MD [address] [place] [address] PCP - General Family Medicine 07/12/20 [facility] 01/17/22 01/05/25 [facility] 12/25/24 documented as of this encounter
--- OUTSIDE RECORDS SUMMARY | 2025-01-19 15:39 | XMS_ITS | Encounter Summary ---
Author Organization [employer] Address [address] [place] [address] 7 [place] [address] Care Team Providers Care Immigration Manager Name Role Phone Maddie Kim MD Primary Care Provider [phone] Encounter Details Date Type Department Care Team ([facility] Contact Info) Description 07/05/2022 Orders Only [facility] [address] [place] [address] [phone] Maddie Kim MD [address] [place] [address] [phone] Social History Tobacco Use Types Packs/Day Years [...] Description 03/27/2025 1:30 PM EST Office Visit [facility] [address] [place] [address] [phone] Maddie Kim MD [address] [place] [address] [phone] documented as of this encounter Visit Diagnoses Not on filedocumented in this encounter Additional Health Concerns Assessment Noted Time PHQ-9 Depression Total Score: 0 05/30/19 23 3:26 PM EDT documented as of this encounter Care Teams Immigration Manager Relationship Specialty Start Date End Date Maddie Kim MD 230 [place] [address] PCP - General Family Medicine 07/12/20 Willie Gage 01/17/22 01/05/25 [facility] 12/25/24 documented as of this encounter
--- OUTSIDE RECORDS SUMMARY | 2025-01-19 15:40 | XMS_ITS | Encounter Summary ---
Author Organization [employer] Address [address] [place] [address] 7 [place] [address] Care Team Providers Care Professor Of Floriculture Name Role Phone Maddie Kim MD Primary Care Provider [phone] Reason for Visit * Reason Onset Date Comments Med Refill 09/19/2024 Encounter Details Date Type Department Care Team ([facility] Contact Info) Description 09/19/2024 Telephone [facility] 230 [place], [place] [phone] Maddie Kim MD 230 [place], [place] [phone] Med Refill Social History Tobacco Use Types [...] 1:38 PM EDT Medication was sent to [id number] on 08/27/24 with 2 refills patient can call pharmacy and transfer medication. * Telephone Encounter - Gil Metz - 09/19/2024 1:29 PM EDT TC from pt requesting medication refill. Medications needing refill : Tirzepatide-Weight Management (Zepbound) 10 MG/0.5ML solution auto-injector To be sent to: [facility] - [place], [place] - [address] documented in this encounter Plan of Treatment Upcoming Encounters Date Type Department Care Team (Late st Contact Info) Description 03/27/2025 1:30 PM EST Office Visit [facility] [address] [place] [address] Maddie Kim MD [address] [place] [address] documented as of this encounter Visit Diagnoses Not on filedocumented in this encounter Additional Health Concerns Assessment Noted Time PHQ-9 Depression Total Score: 9 07/05/19 25 6:48 AM EDT documented as of this encounter Care Teams Professor Of Floriculture Relationship Specialty Start Date End Date Maddie Kim MD [address] [place] [address] PCP - General Family Medicine 07/12/20 Willie Gage 01/17/22 01/05/25 [facility] 12/25/24 documented as of this encounter
--- OUTSIDE RECORDS SUMMARY | 2025-01-19 15:40 | XMS_ITS | Encounter Summary ---
Author Organization [employer] Address [address] [place] [address] 7t [place] [address] Care Team Providers Care Compensator Name Role Phone Maddie Kim MD Primary Care Provider [phone] Encounter Details Date Type Department Care Team ([facility] st Contact Info) Description 04/14/2024 Orders Only [facility] 230 [place], [place] [phone] Maddie Kim MD 230 [place], [place] [phone] Social History Tobacco Use Types Packs/Day Years [...] Description 03/27/2025 1:30 PM EST Office Visit [facility] 230 [place], [place] [phone] Maddie Kim MD [address] [place], [place] [phone] documented as of this encounter Procedures Procedure [...] IMMUNOGLOBULIN G 1545 600 - 1640 mg/dL [facility] IMMUNOGLOBULIN A 197 47 - 310 mg/dL [facility] Immunoglobulin M 46(A) 50 - 300 mg/dL [facility] Comment:THIS TEST WAS PERFOR MED AT:[facility] [place] [phone] PARKINSON MD Immunofixation Result SEE NOTE [facility] Comment:Normal pattern. No m onoclonal proteins detected. 04/14/2024 12:4 7 PM EST 04/14/2024 12:47 PM EST [employer] External Data Provider LAB BLOOD ORDERAB LES Final Result Performing Organization Address [facility] de Phone Number [facility] [address] [place] [phone] * Cortisol Random (04/14/2024 12:47 PM EST) [facility] Cortisol Random 5.7 ug/dL [facility] Comment:Reference Range*: Be fore 10 am 6.2-19.4 ug/dL After 5 pm 2.3-11.9 ug/dL*Please interpret above results accordingly.This test was performed using the [employer] chemiluminescentmethod. Values obtained from different assay methods cannotbe used interchangeably.Patients receiving fludrocortisone, prednisolone orprednisone may show artificially elevated cortisol valuesdue to cross-reactivity. 04/14/2024 12:4 7 PM EST 04/14/2024 12:47 PM EST Generic External Data Provider LAB BLOOD ORDERAB LES Final Result Performing Organization Address [facility] Co de Phone Number [facility] [address] [place] [phone] * Ferritin (04/14/2024 12:47 PM EST) Pathologist [facility] Ferritin 61 10 - 250 ng/mL [facility] 04/14/2024 12:4 7 PM EST 04/14/2024 12:47 PM EST us Gil Brewer MD LAB BLOOD ORDERABLES Final Resul t Performing Organization Address [facility] Co de Phone Number [facility] [address] [place] [phone] * Iron And Total Iron Binding Capacity (04/14/2024 12:47 PM EST) Iron 77 30 - 160 mcg/dL [facility] Total Iron Binding Capacity 339 228 - 428 mcg/dL [facility] Percent Iron Saturation 23 15 - 50 % [facility] Unsaturated Iron Binding 262 ug/dL [facility] 04/14/2024 12:4 7 PM EST 04/14/2024 12:47 PM EST us Gil Brewer MD LAB BLOOD ORDERABLES Final Resul t Performing Organization Address [facility] Co de Phone Number [facility] [address] [place] [phone] * (ABNORMAL) Basic Metabolic Panel (04/14/2024 12:47 PM EST) Sodium 139 135 - 145 mmol/L [facility] Potassium 4.3 3.3 - 5.1 mmol/L [facility] Chloride 104 96 - 108 mmol/L [facility] Carbon Dioxide 27 22 - 29 mmol/L [facility] Anion Gap 12 12 - 20 [facility] Urea Nitrogen (BUN) 7(L) 9 - 16 mg/dL [facility] Creatinine, Serum 0.69 0.5 - 1.4 mg/dL [facility] Estimated Glomerular Filt Rate >60 [facility] Comment:Chronic Kidney Disea se: Estimated GFR < 60 mL/min/1.23w2Goyjvr Kidney Disease: Estimated GFR < 15 mL/min/1.73m2 Glucose 84 60 - 115 mg/dL [facility] Calcium 9.5 8.4 - 10.2 mg/dL [facility] 04/14/2024 12:4 7 PM EST 04/14/2024 12:47 PM EST us Gil Name MD LAB BLOOD ORDERABLES Final Resul t [facility] [address] [place], [place] [phone] * (ABNORMAL) CBC auto differential (04/14/2024 12:47 PM EST) White Blood Count 6.5 4.8 - 10.8 X10*3/uL [facility] Red Blood Count 3.74(L) 4.20 - 5.50 X10*6/uL [facility] Hemoglobin 9.4(L) 12.0 - 16.0 g/dl [facility] Hematocrit 29.6(L) 37.0 - 47.0 % [facility] Mean Corpuscular Volume 79.1(L) 80.0 - 98.0 fL [facility] Mean Corpuscular Hemoglobin 25.1(L) 27.0 - 33.0 pg [facility] Mean Corpuscular HGB Conc 31.8 31.0 - 35.0 g/dl [facility] Red Cell Distribution Width 16.1(H) 11.0 - 16.0 % [facility] Platelet Count 530(H) 160 - 400 X10*3/uL [facility] Mean Platelet Volume 9.6 9.4 - 12.3 fL [facility] Neutrophils Percent Auto 56.2 45 - 73 % [facility] Imm Gran Pct Auto 0.6(H) 0.0 - 0.4 % [facility] Lymphocytes Percent Auto 32.5 20 - 40 % [facility] Monocytes Percent Auto 8.8 2 - 11 % [facility] Eosinophils Percent Auto 1.4 0 - 4 % [facility] Basophils Percent Auto 0.5 0 - 2 % [facility] NRBC Pct Auto 0.0 0.0 - 0.2 /100WBC [facility] Neutrophils Absolute Auto 3.7 2.0 - 8.3 x10*3/uL [facility] Imm Gran Abs Auto 0.04(H) 0.00 - 0.03 X10*3/uL [facility] Lymphocytes Absolute Auto 2.1 1.2 - 4.9 X10*3/uL [facility] Monocytes Absolute Auto 0.6 0.1 - 1.2 X10*3/uL [facility] Eosinophils Absolute Auto 0.1 0.0 - 0.4 X10*3/uL [facility] Basophils Absolute Auto 0.0 0.0 - 0.2 X10*3/uL [facility] NRBC Abs Auto 0.000 0.0 - 0.012 X10*3/uL [facility] 04/14/2024 12:4 7 PM EST 04/14/2024 12:47 PM EST us Gil Brewer MD LAB BLOOD ORDERABLES Final Resul t Performing Organization Address City/[facility]/ZIP Co de Phone Number [facility] [address] [place] [address] [phone] * (ABNORMAL) Osmolality, Urine (04/14/2024 12:45 PM EST) OSMOLALITY URINE 212(L) 373 - 1,093 mosm/kg [facility] 04/14/2024 12:4 5 PM EST 04/14/2024 1:55 PM EST us Generic External Data Provider LAB URINE ORDERAB LES Final Result Performing Organization Address [facility] Co de Phone Number [facility] [address] [place] [address] [phone] * Sodium Without creatinine, Random Urine (04/14/2024 12:45 PM EST) Sodium Urine Random 47.0 mmol/L [facility] 04/14/2024 12:4 5 PM EST 04/14/2024 1:55 PM EST us Generic External Data Provider LAB BLOOD ORDERAB LES Final Result [facility] [address] [place] [address] [phone] documented in this encounter Visit Diagnoses Not on filedocumented in this encounter Additional Health Concerns Assessment Noted Time PHQ-9 Depression Total Score: 3 06/15/19 24 11:48 AM EDT documented as of this encounter Care Teams Compensator Relationship Specialty Start Date End Date Maddie Kim MD [address] [place] [address] PCP - General Family Medicine 07/12/20 [facility] 01/17/22 01/05/25 [facility] 12/25/24 documented as of this encounter
--- OUTSIDE RECORDS SUMMARY | 2025-01-19 15:40 | XMS_ITS | Encounter Summary ---
Author Organization [employer] Address [address] [place] [address] 7t [place] [address] Care Team Providers Care Cryogenics Repairer Name Role Phone Maddie Kim MD Primary Care Provider [phone] Encounter Details Date Type Department Care Team ([facility] Contact Info) Description 11/21/2024 Orders Only [facility] [address] [place], [place] [phone] Maddie Kim MD [address] [place] [address] Social History Tobacco Use Types Packs/Day Years [...] 1:30 PM EST Office Visit [facility] [address] [place] [address] Maddie Kim MD [address] [place] [phone] documented as of this encounter Visit Diagnoses Not on filedocumented in this encounter Additional Health Concerns Assessment Noted Time PHQ-9 Depression Total Score: 9 07/05/19 25 6:48 AM EDT documented as of this encounter Care Teams Cryogenics Repairer Relationship Specialty Start Date End Date Maddie Kim MD [address] [place] [address] PCP - General Family Medicine 07/12/20 Willie Gage 01/17/22 01/05/25 [facility] 12/25/24 documented as of this encounter
--- OUTSIDE RECORDS SUMMARY | 2025-01-19 15:40 | XMS_ITS | Encounter Summary ---
Author Organization [employer] Address [address] [place] [address] 7 [place] [address] Care Team Providers Care Field Service Specialist Name Role Phone Maddie Kim MD Primary Care Provider [phone] Reason for Visit * Reason Onset Date Comments Nurse Triage 05/14/2023 Encounter Details Date Type Department Care Team ([facility] st Contact Info) Description 05/14/2023 Telephone [facility] [address] [place], [place] [phone] Maddie Kim MD 230 [place], [place] [phone] Nurse Triage Social History Tobacco Use Types [...] accepted this outcome Any questions to Destiny [phone] documented in this encounter Plan of Treatment Upcoming Encounters Date Type Department Care Team (Late st Contact Info) Description 03/27/2025 1:30 PM EST Office Visit [facility] [address] [place] [phone] Maddie Kim MD [address] [place] [phone] documented as of this encounter Visit Diagnoses Not on filedocumented in this encounter Additional Health Concerns Assessment Noted Time PHQ-9 Depression Total Score: 0 05/30/19 23 3:26 PM EDT documented as of this encounter Care Teams Field Service Specialist Relationship Specialty Start Date End Date Maddie Kim MD [address] [place] [address] PCP - General Family Medicine 07/12/20 [facility] 01/17/22 01/05/25 [facility] 12/25/24 documented as of this encounter
--- OUTSIDE RECORDS SUMMARY | 2025-01-19 15:40 | XMS_ITS | Encounter Summary ---
Author Organization [employer] Address [address] [place] [address] 7 [place] [address] Care Team Providers Care Sales And Marketing Coordinator Name Role Phone Maddie Kim MD Primary Care Provider [phone] Reason for Visit * Reason Onset Date Comments Med Refill 05/10/2023 Encounter Details Date Type Department Care Team ([facility] st Contact Info) Description 05/10/2023 Refill [facility] [address] [place], [place] [phone] Maddie Kim MD [address] [place], [place] [phone] Chronic bilateral low back pain without sciatica [...] 1:30 PM EST Office Visit [facility] [address] [place] [address] Maddie Kim MD [address] [place], [place] [phone] documented as of this encounter Visit Diagnoses Diagnosis Chronic bilateral low back pain without sciatica documented in this encounter Additional Health Concerns Assessment Noted Time PHQ-9 Depression Total Score: 0 05/30/19 23 3:26 PM EDT documented as of this encounter Care Teams Sales And Marketing Coordinator Relationship Specialty Start Date End Date Maddie Kim MD [address] [place], [place] [phone] PCP - General Family Medicine 07/12/20 Willie Gage 01/17/22 01/05/25 [facility] 12/25/24 documented as of this encounter
--- OUTSIDE RECORDS SUMMARY | 2025-01-19 15:40 | XMS_ITS | Encounter Summary ---
Author Organization [employer] Address [address] [place] [address] 7 [place] [address] Care Team Providers Care Supervisor Laboratory Animal Facility Name Role Phone Maddie Kim MD Primary Care Provider [phone] Reason for Visit * Reason Onset Date Comments Medication Question 07/09/2024 Encounter Details Date Type Department Care Team ([facility] Contact Info) Description 07/09/2024 Telephone [facility] [address] [place], [place] [phone] Maddie Kim MD [address] [place], [place] [phone] Medication Question Social History Tobacco Use Types [...] 06/18/24 per PCP note. Patent spoke to geomagnetician's today and reported that [facility] is unable [...] Description 03/27/2025 1:30 PM EST Office Visit [facility] [address] [place] [address] Maddie Kim MD [address] [place] [address] documented as of this encounter Visit Diagnoses Not on filedocumented in this encounter Additional Health Concerns Assessment Noted Time PHQ-9 Depression Total Score: 9 07/05/19 25 6:48 AM EDT documented as of this encounter Care Teams Supervisor Laboratory Animal Facility Relationship Specialty Start Date End Date Maddie Kim MD [address] [place] [address] PCP - General Family Medicine 07/12/20 [facility] 01/17/22 01/05/25 [facility] 12/25/24 documented as of this encounter
--- OUTSIDE RECORDS SUMMARY | 2025-01-19 15:40 | XMS_ITS | Encounter Summary ---
Author Organization [employer] Address [address] [facility] 7t [place] [address] Care Team Providers Care Veterinary Technician Name Role Phone Maddie Kim MD Primary Care Provider [phone] Reason for Visit * Reason Onset Date Comments Med Refill 02/14/2023 Encounter Details Date Type Department Care Team ([facility] Contact Info) Description 02/14/2023 Refill [facility] [address] [place] [address] [phone] Maddie Kim MD [address] [place], [place] [phone] Social History Tobacco Use Types Packs/Day Years [...] Description 03/27/2025 1:30 PM EST Office Visit [facility] [address] [place] [address] Maddie Kim MD [address] [place], [place] [phone] documented as of this encounter Visit Diagnoses Not on filedocumented in this encounter Additional Health Concerns Assessment Noted Time PHQ-9 Depression Total Score: 0 05/30/19 23 3:26 PM EDT documented as of this encounter Care Teams Veterinary Technician Relationship Specialty Start Date End Date Maddie Kim MD [address] [place] [address] [phone] PCP - General Family Medicine 07/12/20 Willie Gage 01/17/22 01/05/25 [facility] 12/25/24 documented as of this encounter
--- OUTSIDE RECORDS SUMMARY | 2025-01-19 15:40 | XMS_ITS | Encounter Summary ---
Author Organization [employer] Address [address] [facility] 7t [place] [address] Care Team Providers Care Water Restoration Technician Name Role Phone Maddie Kim MD Primary Care Provider [phone] Reason for Visit * Reason Onset Date Comments Med Refill 04/04/2023 Encounter Details Date Type Department Care Team ([facility] Contact Info) Description 04/04/2023 Refill [facility] [address] [place] [phone] Isac Gonzalez MD [address] [place], [place] [phone] Chronic bilateral low back pain without sciatica [...] Description 03/27/2025 1:30 PM EST Office Visit [facility] [address] [place] [address] Maddie Kim MD [address] [place] [address] documented as of this encounter Visit Diagnoses Diagnosis Chronic bilateral low back pain without sciatica documented in this encounter Additional Health Concerns Assessment Noted Time PHQ-9 Depression Total Score: 0 05/30/19 23 3:26 PM EDT documented as of this encounter Care Teams Water Restoration Technician Relationship Specialty Start Date End Date Maddie Kim MD [address] [place] [address] PCP - General Family Medicine 07/12/20 [facility] 01/17/22 01/05/25 [facility] 12/25/24 documented as of this encounter
--- OUTSIDE RECORDS SUMMARY | 2025-01-19 15:40 | XMS_ITS | Data Portability ---
Author Organization [employer] [facility] Address [address] [place] [address] Care Team Providers Care Pony Ride Operator Name Role Phone JEAN-PIERRE MASON Primary Care [...] Bridgettein g, [employer] 2024 025 [email or web address] [facility] [place], [address] [place] [address], [place], [address], 14:26:09 Procedures None recorded. Surgeries None recorded. Imaging None recorded. Medication Orders clindamycin HCl 300 mg capsule 2024 Antonio bansal [id number], [address] [place], [address], 5 12:46:20 Patient TargetsNo targets recorded. Patient [...] Address Organization Details Recorded Time No complaints [id number] Active Status : 'I'; Not Available [facility] 4 09:21:06 Mass of joint of left wrist 9726229329762 9101 Active 2023 Cammy Ovalle, OTR/L,CHT [address], [place], [address] , [facility] 4 09:39:49 Fracture of ankle 73708909 Active 2023 [facility] 4 15:14:42 Postoperat laurence pain 401688893 Active 2024 Huma Augustin APRN [address], [place], [address] , [facility] 5 10:10:16 Problem Notes None recorded. Procedures Surgical History Date Name Laterality Status Provider Name and Address Organization Details Recorded Time 11/07/19 78622 Therapeutic Exercise (1:1) completed Julian Vera PT [address], [place], [address], [facility] 11/09/2024 19:58:43 11/07/19 42262: Manual therapy completed Julian Vera PT [address], [place], [address], [facility] 11/09/2024 19:58:43 10/25/19 24351 Therapeutic Exercise (1:1) completed Julian Vera, PT [address], [place], [address], [facility] 10/25/2024 23:06:22 10/25/19 32178: Manual therapy completed Julian Vera, PT [address], [place], [address], [facility] 10/25/2024 23:06:43 10/16/19 67475 Therapeutic Exercise (1:1) completed Krystina Galo, SUPERVISOR PROPERTIES [address], [place], [address], [facility] 10/16/2024 16:15:04 10/16/19 99203: Hot or Cold Pack completed Krystina Galo, SUPERVISOR PROPERTIES [address], [place], [address], [facility] 10/16/2024 16:15:20 10/11/19 24612 Therapeutic Exercise (1:1) completed Julian Vera, PT [address], [place], [address], [facility] 10/14/2024 07:11:36 10/11/19 51400: Low complexity PT Eval completed Julian Vera, PT [address], [place], [address], [facility] 10/14/2024 07:11:39 07/09/19 22198 Therapeutic Exercise (1:1) completed Na Gonzalez, SUPERVISOR PROPERTIES [address], [place], [address], [facility] 07/09/2024 21:36:12 07/09/19 30184: Neuromuscular Re-Education completed Na Gonzalez, SUPERVISOR PROPERTIES [address], [place], [address], [facility] 07/09/2024 21:40:29 07/04/19 96323: Therapeutic Activities (1:1) cancelled Hector Pyser, PT [address], [place], [address], [facility] 07/02/2024 05:38:15 07/04/19 15672 Therapeutic Exercise (1:1) cancelled Hector Pyser, PT [address], [place], [address], [facility] 07/02/2024 05:38:15 07/04/19 06882: Manual therapy cancelled Hector Pyser, PT [address], [place], [address], [facility] 07/02/2024 05:38:15 07/01/19 85544: Therapeutic Activities (1:1) completed Hector Pyser, PT [address], [place], [address], [facility] 06/30/2024 10:41:35 07/01/19 03162 Therapeutic Exercise (1:1) completed Hector Pyser, PT [address], [place], [address], [facility] 06/30/2024 11:06:28 07/01/19 81820: Manual therapy completed Hector Pyser, PT [address], [place], [address], [facility] 06/30/2024 11:06:16 06/28/19 64545: Therapeutic Activities (1:1) cancelled Hector Pyser, PT [address], [place], [address], [facility] 06/26/2024 12:47:26 06/28/19 29299 Therapeutic Exercise (1:1) cancelled Hector Pyser, PT [address], [place], [address], [facility] 06/26/2024 12:47:26 06/28/19 48328: Manual therapy cancelled Hector Pyser, PT [address], [place], [address], [facility] 06/26/2024 12:47:26 06/25/19 68152: Therapeutic Activities (1:1) cancelled Hector Georgeser, PT [address], [place], [address], [facility] 06/23/2024 16:32:14 06/25/19 41239 Therapeutic Exercise (1:1) cancelled Hector Pyser, PT [address], [place], [address], [facility] 06/23/2024 16:32:14 06/25/19 35273: Manual therapy cancelled Hector Georgeser, PT [address], [place], [address], [facility] 06/23/2024 16:32:14 06/19/19 59898: Therapeutic Activities (1:1) completed Na Gonzalez, SUPERVISOR PROPERTIES [address], [place], [address], [facility] 06/18/2024 15:01:55 06/19/19 33510 Therapeutic Exercise (1:1) completed Na Gonzalez, SUPERVISOR PROPERTIES [address], [place], [address], [facility] 06/18/2024 15:01:55 06/19/19 44577: Manual therapy completed Na Gonzalez, SUPERVISOR PROPERTIES [address], [place], [address], [facility] 06/18/2024 15:01:55 06/13/19 58421: Therapeutic Activities (1:1) completed Na Gonzalez, SUPERVISOR PROPERTIES [address], [place], [address], [facility] 06/13/2024 07:27:56 06/13/19 33552 Therapeutic Exercise (1:1) completed Na Gonzalez, SUPERVISOR PROPERTIES [address], [place], [address], [facility] 06/13/2024 07:27:26 06/13/19 45009: Manual therapy completed Na Gonzalez, SUPERVISOR PROPERTIES [address], [place], [address], [facility] 06/13/2024 07:27:52 06/10/19 66965 Therapeutic Exercise (1:1) completed Hector Pyser, PT [address], [place], [address], [facility] 05/31/2024 14:22:51 06/10/19 11358: Low complexity PT Eval completed Hector Pyser, PT [address], [place], [address], [facility] 05/31/2024 14:22:53 05/01/19 91055 Therapeutic Exercise (1:1) completed Hector Pyser, PT [address], [place], [address], [facility] 04/29/2024 14:50:39 05/01/19 92682: Low complexity PT Eval completed Hector Pyser, PT [address], [place], [address], [facility] 04/29/2024 14:50:41 12/04/19 Sports Knee 4&1 completed Juancarlos Iyer PA-C [address], [place], [address], [facility] 12/04/2023 11:27:50 06/08/19 24 Splint_Short Arm Fiberglass_11+ completed JUNI SHELTON [facility] 06/08/2023 13:25:25 Imaging Results None recorded. Procedure Notes None recorded. Medical Equipment None Reported. Allergies Allergen ID Allergen Name Allergen Category Reaction Reaction Severity Criticality Documentation Date Start Date Code Code System Note Provider Name and Address Organization Details Recorded Time 475193 penicilli n G benzathin e medicatio n Not available Not available Not available 04/23/20232012 7982 RxNorm GOMEZ LAMA [facility], [facility] 4 13:22:51 100982 Dilaudid medicatio n Not available Not available Not available 04/23/20232012 40677 3 RxNorm GOMEZ LAMA [facility], [facility] 4 13:22:48 645002 Bactrim medicatio n Not available Not available Not available 04/23/20232020 34862 9 RxNorm JACKIE CISNEROS [facility], [facility] 5 14:12:53 Medications Name Sig Start [...] Updated DateTime 09/18/2024 157.48 cm 40.1 kg/m2 19460.73 g JACKIE CISNEROS [place] - [facility] 09/18/2024 10:54:52 Social History None recorded. [...] ICD10 Code Diagnosis IMO Codes Diagnosis Note [id number] Scott Virgen MD [facility] 1st Floor [address] [facility] [address] [place] [address] 06/08/2023 13:04:19 06/08/2023 13:29:48 Postoperative care 518616130 Z48.89 [id number] Cammy Ovalle, OTR/L,CHT [facility] 1st Floor [address] [place] [address] 06/19/2023 08:53:48 06/19/2023 09:24:40 Postoperative care 804752436 Z48.89 The surgical dressing is removed and [...] Mass of tara int of left wrist 9567844794 3401756 M25.832 The patient reports her difficulti es [...] digits with full sensation throughout the hand. [id number] MD Monet Leong [facility] [facility] [address] [place] [address] 07/04/2023 13:05:09 07/04/2023 14:32:21 Fracture of ankle 65282031 S82.92XD [id number] MD Monet Perry [address] [facility] [address] [place] [address] 07/18/2023 09:13:32 08/07/2023 11:36:21 Ganglion cyst of left volar wrist 2910021478 3971077 M67.616 [id number] MD Monet Leong [facility] [address] [place] [address] 08/29/2023 12:57:16 09/29/2023 06:09:53 Fracture of ankle 06269863 S82.92XD [id number] ALFRED Souza 2nd floor [address] [place] [address] 12/04/2023 10:33:27 12/27/2023 15:37:25 Pain of left knee joint 5638926880 37415 M25.562 Osteoarthr itis of knee 719381213 M17.9 [id number] MD VINOD Perry - Monet [address] [facility] [address] [place] [address] 03/14/2024 08:45:12 04/01/2024 15:12:53 Carpal tunnel syndrome of right wrist 3421609966 35820 G56.01 207087 [id number] MD VINOD Salguero Clinical [address] [place] [address] 04/10/2024 13:38:45 04/23/2024 08:50:58 Osteoarthritis of left knee joint 4213230170 83637 M17.12 4120126 [id number] Hector Pyser, PT [facility] [address] [place] [address] 04/30/2024 16:44:12 04/30/2024 17:31:01 Osteoarthritis of knee 701458052 M17.12 [id number] Mati Trinh, MILLING MACHINE SET UP OPERATOR [facility] [address] [place] [address] 05/16/2024 08:50:29 05/30/2024 04:02:27 Osteoarthritis of left knee joint 3837319451 20800 M17.12 5807953 [id number] Hector Pyser, PT [facility] [address] [place] [address] 06/09/2024 16:25:39 06/09/2024 17:48:56 History of left total knee replacement 0800241990 210186 Z96.652 Z47.1 [id number] Alonzo Singleton PA-C [facility] [address] [place] [address] 06/10/2024 12:44:32 06/21/2024 19:41:07 Knee joint prosthesis present 2450553364 02 Z96.652 49144588 [id number] Na Gonzalez, SUPERVISOR PROPERTIES [facility] [address] [place] [address] 06/12/2024 11:16:51 06/12/2024 12:04:25 History of left total knee replacement 8828896433 191460 Z96.652 Z47.1 [id number] Na Fudge, SUPERVISOR PROPERTIES [facility] [address] [place] [address] 06/18/2024 14:25:56 06/18/2024 17:18:52 History of left total knee replacement 2048876533 944784 Z96.652 Z47.1 [id number] Hector Sams, PT [facility] [address] [place] [address] 06/30/2024 10:08:37 06/30/2024 14:09:41 History of left total knee replacement 6351235814 654785 Z96.652 Z47.1 [id number] Na Gonzalez, SUPERVISOR PROPERTIES [facility] [address] [place] [address] 07/08/2024 16:10:19 07/08/2024 17:23:29 History of left total knee replacement 5850958525 133545 Z96.652 Z47.1 [id number] MD VINOD Salguero Clinical [facility] [place] [address] 09/18/2024 10:44:43 09/24/2024 14:26:09 History of total knee arthroplasty 1414036537 105 Z96.652 43890870 [id number] Julian Billyo, PT [facility] [address] [place] [address] 10/10/2024 15:00:25 10/10/2024 16:11:43 Pain of left knee joint 2190966465 86766 M25.562 569189 [id number] Krystina Galo, SUPERVISOR PROPERTIES [facility] [address] [place] [address] 10/15/2024 15:18:59 10/15/2024 15:59:03 Pain of left knee joint 1754813275 05671 M25.562 649332 [id number] Julian Chuy, PT [facility] [address] [place] [address] 10/24/2024 15:07:10 10/24/2024 16:05:18 Pain of left knee joint 6374464038 65048 M25.562 842123 [id number] Julian Chuy, PT [facility] [address] [place] [address] 11/06/2024 15:04:33 11/06/2024 16:31:36 Pain of left knee joint 3918476375 88264 M25.562 [id number] Health Concerns Section Related Observation LastModified by Organization Detai ls LastModified Time None Recorded Concern Status LastModified by Organization Details LastModified Time None Recorded Advance Directives Directive None Recorded Payers Insurance Date Sequence Insurance Name Policy Number Policy Fernandez Covered Member ID Fernandez Member ID Guarantor Name 11/08/2024 1 [facility] - DOS ON OR AFTER 2022 - ONE CARE (MEDICARE REPLACEMENT/ADV ANTAGE - HMO) Atiya Dotson [id number] Atiya Dotson Notes Date Note Type Note [...] Vera, PT [address], [place], [address], [facility] 10/14/2024 07:21:32 10/15/2024 text/html Pt reports knee is fair, more soreness. Krystina Galo, SUPERVISOR PROPERTIES [address], [place], [address], [facility] 10/16/2024 16:19:29 10/24/2024 text/html Pt reports L knee has buckled a few times today (not really sure why), and also reporting L knee is still getting sore. Julian Vera, PT [address], [place], [address], [facility] 10/25/2024 23:08:14 11/06/2024 text/html Pt states L knee not really painful anymore though still has buckling episodes. Julian Vera, PT [address], [place], [address], [facility] 11/09/2024 20:04:58 OBGyn Episode No OBEpisode recorded.
--- OUTSIDE RECORDS SUMMARY | 2025-01-19 15:40 | XMS_ITS | Continuity of Care Document ---
Author Organization [employer] [facility], [facility] Address [address] [place] [address] Care Team Providers Care Senior Account Representative Name Role Phone HIM CCA OTHER Unavailable Primary Care Provider Assessment Encounter Date Assessment Date Assessment LastModified by Organization Details LastModified Time 11/22/2024 11/22/2024 I provided real -time medical direction via phone for this encounter and was available for additional phone-based assistance as needed. I have reviewed and agree with the Assessment and Plan as documented by the Acid Remover. Patient given the opportunity to ask questions. Our service contacted for an assessment of: Migraine KO As per above, patient with acute onset of MHA this am. Has taken usual meds. No NSAIDs today. Has tolerated Toradol in the past. Per driver salesman on the scene, VSS, AF Please read the driver salesman note for their exam findings. Impression: Plan: [...] particularly fever chills lightheadedness altered mental status [place] [address] Not available 11/22/2024 11:23:03 Plan of Treatment Reminders Order Date Submit Date Provider Last Modified By Organization Details Last Modified Time Details Appointments None recorded. Lab None recorded. Referral None recorded. Procedures None recorded. Surgeries None recorded. Imaging None recorded. Medication Orders ketorolac 30 mg/mL injection solution [address] [facility], [address] [place] [address] 105, [place], [place], [id number], 5 11:19:38 Patient TargetsNo targets recorded. Patient InstructionsNo instructions recorded. Reason for Referral None Reported. Medical Equipment None Reported. Allergies Allergen ID Allergen Name Allergen Category Reaction Reaction Severity Criticality Documentation Date Start Date Code Code System Note Provider Name and Address Organization Details Recorded Time 62155 Dilantin medicatio n Not available Not available Not available 02/22/202451275 0 [facility] 5 14:48:20 87327 sulfameth oxazole medicatio n Not available Not available Not available 02/22/2024 45894 Rx[facility] 14:48:20 32332 trimethop rim medicatio n Not available Not available Not available 02/22/2024 62908 RxNorm Not Available [facility] 5 10:23:13 52683 Product containin g penicilli n (product) medicatio n Not available Not available Not available 02/22/2024 61873 8001 SNOMED Not Available [facility] 5 14:48:20 80360 penicilli n G benzathin e medicatio n Not available Not available Not available 02/22/2024 7982 RxNorm Not Available [facility] 14:48:20 68986 penicilli n G procaine medicatio n Not available Not available Not available 02/22/2024 7983 RxNorm Not Available [facility] 5 14:48:20 72881 Non-stero idal anti-infl ammatory agent (substanc e) medicatio n other Not available [facility] 10/06/2024 88861 5008 SNOMED H/o GIB and gastr ic ulcer s with all NSAID s - told not to take Fawn Coelho MD [address] [facility],[address], [place], [address], [facility] [employer], [facility] 5 15:15:41 Medications Name Sig Start Date [...] t Available Vitals Date Recorded Oxygen saturation Heart rate Respiratory rate Body temperature Systolic And Diastolic Provider Name and Address Organization Details Last Updated DateTime 99 % 72 /min 18 /min 98.5 [...] ICD10 Code Diagnosis IMO Codes Diagnosis Note 82162 TRISTON GILBERT NP, S [facility] [address] [address] 10/26/2024 17:36:16 10/27/2024 15:59:17 Acute low back pain [id number] M54.50 [id number] Fawn Coelho MD [address] [address] 11/22/2024 11:04:45 11/22/2024 12:18:43 Acute migraine [id number] 89971 G43.909 [id number] Health Concerns Section Related Observation LastModified by Organization Detai ls LastModified Time None Recorded Concern Status LastModified by Organization Details LastModified Time None Recorded Payers Encounter Date Sequence Insurance Name Policy Number Policy Fernandez Covered Member ID Fernandez Member ID Guarantor Name 11/22/2024 1 [facility] - DOS ON OR AFTER 2022 - DUAL ELIGIBLE - CORRECTION OPTIONS AND ONE CARE (MEDICARE REPLACEMENT/ADV ANTAGE - HMO) Atiya Dotson [id number] Atiya Dotson Notes Date Note Type Note Provider Name and Address Organization Details Recorded Time 11/22/2024 text/html CRC Nurse Triage Notes (Wellington Crodova): Reason For Request: Patient has a Migraine [...] Chronic Back Pain, Migraine PMH Reviewed at 11/22/2024: Allergies Reviewed at 11/22/2024:28 Comments: 49 y.o [...] ...................... ...................... ...................... ...................... ...................... ...................... ......... Acid Remover Note From Gunnar Cobb: Arrived to find [...] VS as noted. No red flag symptoms. [facility] contacted advised 30mg toradol IM. 30mg toradol given in right deltoid without incident. Patient in agreement with plan. ...................... ...................... ...................... ...................... ...................... ...................... ......... [facility] Consulted: Fawn Coelho ...................... ...................... ...................... ...................... ...................... ...................... ......... Disposition: Fulfilled Fawn Coelho MD [address] [facility],[address] [facility], [place], [address], [employer] 11/22/2024 11:55:19 OBGyn Episode No OBEpisode recorded.
--- OUTSIDE RECORDS SUMMARY | 2025-01-19 15:40 | XMS_ITS | Encounter Summary ---
Author Organization [employer] Address [address] [facility] 7t [place] [address] Care Team Providers Care Supervisor Tan Room Name Role Phone Maddie Kim MD Primary Care Provider [phone] Reason for Visit * Reason Comments Med Refill Encounter Details Date Type Department Care Team ([facility] st Contact Info) Description 04/05/2023 Refill [facility] [address] [place] [address] [phone] Isac Gonzalez MD [address] [place] [address] [phone] Chronic bilateral low back pain without sciatica [...] - 04/06/2023 12:46 PM EST TC to [facility] pharmacy, T3 RX written 03/29/23 for [...] Description 03/27/2025 1:30 PM EST Office Visit [facility] [address] [place] [address] Maddie Kim MD [address] [place] [address] documented as of this encounter Visit Diagnoses Diagnosis Chronic bilateral low back pain without sciatica documented in this encounter Additional Health Concerns Assessment Noted Time PHQ-9 Depression Total Score: 0 05/30/19 23 3:26 PM EDT documented as of this encounter Care Teams Supervisor Tan Room Relationship Specialty Start Date End Date Maddie Kim MD [address] [place] [address] PCP - General Family Medicine 07/12/20 Willie Gage 01/17/22 01/05/25 [facility] 12/25/24 documented as of this encounter
--- OUTSIDE RECORDS SUMMARY | 2025-01-19 15:40 | XMS_ITS | Encounter Summary ---
Author Organization [employer] Address [address] [place] [address] 7t [place] [address] Care Team Providers Care Rug Dyer Name Role Phone Maddie Kim MD Primary Care Provider [phone] Encounter Details Date Type Department Care Team ([facility] st Contact Info) Description 06/13/2024 Orders Only [facility] MED[facility]INE [address] [place], [place] [phone] Maddie Kim MD [address] [place], [place] [phone] Social History Tobacco Use Types Packs/Day Years [...] Description 03/27/2025 1:30 PM EST Office Visit [facility] [address] [place] [address] Maddie Kim MD [address] [place] [address] documented as of this encounter Visit Diagnoses Not on filedocumented in this encounter Additional Health Concerns Assessment Noted Time PHQ-9 Depression Total Score: 3 06/15/19 24 11:48 AM EDT documented as of this encounter Care Teams Rug Dyer Relationship Specialty Start Date End Date Maddie Kim MD [address] [place] [address] PCP - General Family Medicine 07/12/20 Willie Gage 01/17/22 01/05/25 [facility] 12/25/24 documented as of this encounter
--- OUTSIDE RECORDS SUMMARY | 2025-01-19 15:40 | XMS_ITS | Encounter Summary ---
Author Organization [employer] Address [address] [facility] 7t [place] [address] Care Team Providers Care Sweeper Operator Highways Name Role Phone Maddie Kim MD Primary Care Provider [phone] Reason for Visit * Reason Comments Med Refill Encounter Details Date Type Department Care Team ([facility] st Contact Info) Description 03/18/2023 Refill [facility] [address] [place] [address] [phone] Maddie Kim MD [address] [place] [address] [phone] Social History Tobacco Use Types Packs/Day Years [...] Description 03/27/2025 1:30 PM EST Office Visit [facility] [address] [place] [address] Maddie Kim MD [address] [place] [address] documented as of this encounter Visit Diagnoses Not on filedocumented in this encounter Additional Health Concerns Assessment Noted Time PHQ-9 Depression Total Score: 0 05/30/19 23 3:26 PM EDT documented as of this encounter Care Teams Sweeper Operator Highways Relationship Specialty Start Date End Date Maddie Kim MD [address] [place] [address] PCP - General Family Medicine 07/12/20 Willie Gage 01/17/22 01/05/25 [facility] 12/25/24 documented as of this encounter
--- OUTSIDE RECORDS SUMMARY | 2025-01-19 15:40 | XMS_ITS | Encounter Summary ---
Author Organization [employer] Address [address] [place] [address] 7t [place] [address] Care Team Providers Care Composite Worker Name Role Phone Maddie Kim MD Primary Care Provider [phone] Reason for Referral * Consultation (Urgent) - Closed Specialty Diagnoses / Procedures Referred By Sindi mejia Referred To Contact Cardiology Diagnoses Primary hypertension Tachycardia Other chest pain Maddie Kim MD [address] [place] [address] Phone: tel: fax: [facility] Referral ID Status Reason Start Date Expiration Date V isits Requested Visits Authorized [id number] Closed Specialty Services Required 05/06/2024 05/06/2025 1 1 Encounter Details Date Type Department Care Team (Late st Contact Info) Description 05/06/2024 Orders Only [facility] MED[facility]INE [address] [place], [place] [phone] Maddie Kim MD [address] [place], [place] [phone] Primary hypertension (Primary Dx); Tachycardia; Other chest [...] 1:30 PM EST Office Visit [facility] [address] [place] [address] Maddie Kim MD [address] [place] [address] Scheduled Referrals Name Type Priority Associated Diagnoses [...] documented as of this encounter Care Teams Composite Worker Relationship Specialty Start Date End Date Maddie Kim MD [address] [place] [address] PCP - General Family Medicine 07/12/20 Willie Gage 01/17/22 01/05/25 [facility] 12/25/24 documented as of this encounter
--- OUTSIDE RECORDS SUMMARY | 2025-01-19 15:40 | XMS_ITS | Encounter Summary ---
Author Organization [employer] Address [address] [place] [address] 7 [place] [address] Care Team Providers Care Housekeeper Cleaning Cooking Name Role Phone Maddie Kim MD Primary Care Provider [phone] Reason for Visit * Reason Onset Date Comments Referral 05/05/2024 Encounter Details Date Type Department Care Team ([facility] Contact Info) Description 05/05/2024 Telephone [facility] [address] [place], [place] [phone] Maddie Kim MD [address] [place], [place] [phone] Referral Social History Tobacco Use Types Packs/Day [...] pt requesting referral that was placed for word processor operator needs to say URGENT as pt has surgery in May and facility inform availability is for June unless PCP states is urgent. documented in this encounter Plan of Treatment Upcoming Encounters Date Type Department Care Team (Late st Contact Info) Description 03/27/2025 1:30 PM EST Office Visit [facility] [address] [place] [address] Maddie Kim MD [address] [place] [address] documented as of this encounter Visit Diagnoses Not on filedocumented in this encounter Additional Health Concerns Assessment Noted Time PHQ-9 Depression Total Score: 3 06/15/19 24 11:48 AM EDT documented as of this encounter Care Teams Housekeeper Cleaning Cooking Relationship Specialty Start Date End Date Maddie Kim MD [address] [place] [address] PCP - General Family Medicine 07/12/20 Willie Gage 01/17/22 01/05/25 [facility] 12/25/24 documented as of this encounter
--- OUTSIDE RECORDS SUMMARY | 2025-01-19 15:40 | XMS_ITS | Encounter Summary ---
Author Organization [employer] Address [address] [place] [address] 7t [place] [address] Care Team Providers Care Electronic Commerce Specialist Name Role Phone Maddie Kim MD Primary Care Provider [phone] Encounter Details Date Type Department Care Team ([facility] st Contact Info) Description 03/19/2023 Orders Only [facility] MED[facility]INE [address] [place], [place] [phone] Maddie Kim MD [address] [place], [place] [phone] Herniated lumbar intervertebral disc (Primary Dx) Social [...] Description 03/27/2025 1:30 PM EST Office Visit [facility] [address] [place] [address] Maddie Kim MD [address] [place] [address] documented as of this encounter Visit Diagnoses Diagnosis Herniated lumbar intervertebral disc- Primary Displacement of lumbar intervertebral disc without myelopathy documented in this encounter Additional Health Concerns Assessment Noted Time PHQ-9 Depression Total Score: 0 05/30/19 23 3:26 PM EDT documented as of this encounter Care Teams Electronic Commerce Specialist Relationship Specialty Start Date End Date Maddie Kim MD [address] [place] [address] PCP - General Family Medicine 07/12/20 Willie Gage 01/17/22 01/05/25 [facility] 12/25/24 documented as of this encounter
--- OUTSIDE RECORDS SUMMARY | 2025-01-19 15:40 | XMS_ITS | Encounter Summary ---
Author Organization [employer] Address [address] [place] [address] 7 [place] [address] Care Team Providers Care Night Stocker Name Role Phone Maddie Kim MD Primary Care Provider [phone] Reason for Visit * Reason Comments Med Change Request Encounter Details Date Type Department Care Team ([facility] Contact Info) Description 07/25/2024 Refill [facility] [address] [place], [place] [phone] Maddie Kim MD [address] [place], [place] [phone] Social History Tobacco Use Types Packs/Day Years [...] 1:30 PM EST Office Visit [facility] [address] [place] [address] Maddie Kim MD [address] [place] [address] documented as of this encounter Visit Diagnoses Not on filedocumented in this encounter Additional Health Concerns Assessment Noted Time PHQ-9 Depression Total Score: 9 07/05/19 25 6:48 AM EDT documented as of this encounter Care Teams Night Stocker Relationship Specialty Start Date End Date Maddie Kim MD [address] [place] [address] PCP - General Family Medicine 07/12/20 Willie Gage 01/17/22 01/05/25 [facility] 12/25/24 documented as of this encounter
--- OUTSIDE RECORDS SUMMARY | 2025-01-19 15:40 | XMS_ITS | Encounter Summary ---
Author Organization [employer] Address [address] [place] [address] 7 [place] [address] Care Team Providers Care Amusement Centre Manager Name Role Phone Maddie Kim MD Primary Care Provider [phone] Reason for Visit * Reason Onset Date Comments New Med Request 06/13/2024 Encounter Details Date Type Department Care Team ([facility] Contact Info) Description 06/13/2024 Telephone [facility] [address] [place], [place] [phone] Maddie Kim MD [address] [place], [place] [phone] New Med Request Social History Tobacco Use [...] EDT TC placed to Lauren (Visiting Nurse) [phone] regarding below message. Lauren informed RN that [...] Vitamin D-3 If any questions please contact [phone] documented in this encounter Plan of Treatment Upcoming Encounters Date Type Department Care Team (Late st Contact Info) Description 03/27/2025 1:30 PM EST Office Visit [facility] [address] [place], [place] [phone] Maddie Kim MD [address] [place] [address] documented as of this encounter Visit Diagnoses Not on filedocumented in this encounter Additional Health Concerns Assessment Noted Time PHQ-9 Depression Total Score: 3 06/15/19 24 11:48 AM EDT documented as of this encounter Care Teams Amusement Centre Manager Relationship Specialty Start Date End Date Maddie Kim MD [address] [place] [address] PCP - General Family Medicine 07/12/20 Willie Caring 01/17/22 01/05/25 [facility] 12/25/24 documented as of this encounter
--- OUTSIDE RECORDS SUMMARY | 2025-01-19 15:40 | XMS_ITS | Continuity of Care Document ---
Author Organization [facility], [facility] Address [address] [place] [address] Care Team Providers Care Manager Acquisition Name Role Phone JEAN-PIERRE MASON Primary Care Provider Assessment Encounter Date Assessment Date Assessment LastModified by Organization Details LastModified Time 10/24/2024 10/24/2024 Assessment: Pt 2with good L knee ROM, cont L quad atrophy noted. L LE ms fatigue s/p therex. Plan: Cont POC. Not available 10/25/2024 23:06:04 Plan of Treatment Reminders Order Date Submit [...] Modified By Organization Details Last Modified Time 10/24/2024 [id number] 3 weeks of Left Knee PROM motion: flexion: passive motion, left (125 degrees) Not available Not available Not available 3 weeks of Left Knee PROM motion: extension: passive motion, left (0 degrees) Not available Not available Not available long-term goal of Left Knee Strength (normal) strength: knees: flexion: left 5 (0-5) Not available Not available Not available adjunct faculty for medical terminology goal of Left Knee Strength (normal) strength: knees: extension: left 5 (0-5) Not available Not available Not available 3 weeks of Overall ADL's WFL Not available Not available Not available long-term goal of Overall ADL's unlimited Not available Not available Not available long-term goal of Squatting performs without symptoms Not available Not available Not available 3 weeks of Gait and Stance: on level surfaces Not available Not available Not available long-term goal of Gait and Stance: ambulates with no assitive devices Not available Not available Not available 3 weeks of Stairs step-to pattern Not available Not available Not available 3 weeks of Pain <2-3/10 Not available Not available Not available adjunct faculty for medical terminology goal of Pain 0/10 Not available Not available Not available adjunct faculty for medical terminology goal of Stair climbing (ascending and descending stairs) reciprocally Not available Not available Not available Patient InstructionsNo instructions recorded. Reason for Referral None Reported. Problems Name Problem SNOMED Code Status Onset Date Resolution Date Notes Provider Name and Address Organization Details Recorded Time No complaints 905252662 Active Status : 'I'; Not Available [facility] 4 09:21:06 Mass of joint of left wrist 6804790254593 9101 Active 2023 Cammy Ovalle, OTR/L,CHT [address], [place], [address] , [facility] 4 09:39:49 Fracture of ankle 55349726 Active 2023 KIM brunson [facility] 4 15:14:42 Postoperat laurence pain 177013384 Active 2024 Huma Augustin APRN [address], [place], [address] , [facility] 5 10:10:16 Problem Notes None recorded. Procedures Surgical History Date Name Laterality Status Provider Name and Address Organization Details Recorded Time 11/07/19 67945 Therapeutic Exercise (1:1) completed Julian Vera, PT [address], [place], [address], [facility] 11/09/2024 19:58:43 11/07/19 22767: Manual therapy completed Julian Vera, PT [address], [place], [address], [facility] 11/09/2024 19:58:43 10/25/19 95777 Therapeutic Exercise (1:1) completed Julian Vera, PT [address], [place], [address], [facility] 10/25/2024 23:06:22 10/25/19 93190: Manual therapy completed Julian Vera, PT [address], [place], [address], [facility] 10/25/2024 23:06:43 10/16/19 74805 Therapeutic Exercise (1:1) completed Krystina Galo, MEDICAL INSURANCE CLAIMS PROCESSOR [address], [place], [address], [facility] 10/16/2024 16:15:04 10/16/19 39413: Hot or Cold Pack completed Krystina Galo, MEDICAL INSURANCE CLAIMS PROCESSOR [address], [place], [address], [facility] 10/16/2024 16:15:20 10/11/19 37000 Therapeutic Exercise (1:1) completed Julian Vera, PT [address], [place], [address], [facility] 10/14/2024 07:11:36 10/11/19 29231: Low complexity PT Eval completed Julian Vera, PT [address], [place], [address], [facility] 10/14/2024 07:11:39 07/09/19 51146 Therapeutic Exercise (1:1) completed Na Gonzalez, MEDICAL INSURANCE CLAIMS PROCESSOR [address], [place], [address], [facility] 07/09/2024 21:36:12 07/09/19 58011: Neuromuscular Re-Education completed Na Gonzalez, MEDICAL INSURANCE CLAIMS PROCESSOR [address], [place], [address], [facility] 07/09/2024 21:40:29 07/04/19 27660: Therapeutic Activities (1:1) cancelled Hector Sams, PT [address], [place], [address], [facility] 07/02/2024 05:38:15 07/04/19 77068 Therapeutic Exercise (1:1) cancelled Hector Pyser, PT [address], [place], [address], [facility] 07/02/2024 05:38:15 07/04/19 54804: Manual therapy cancelled Hector Pyser, PT [address], [place], [address], [facility] 07/02/2024 05:38:15 07/01/19 88418: Therapeutic Activities (1:1) completed Hector Pyser, PT [address], [place], [address], [facility] 06/30/2024 10:41:35 07/01/19 16908 Therapeutic Exercise (1:1) completed Hector Pyser, PT [address], [place], [address], [facility] 06/30/2024 11:06:28 07/01/19 83867: Manual therapy completed Hector Pyser, PT [address], [place], [address], [facility] 06/30/2024 11:06:16 06/28/19 41457: Therapeutic Activities (1:1) cancelled Hector Pyser, PT [address], [place], [address], [facility] 06/26/2024 12:47:26 06/28/19 61752 Therapeutic Exercise (1:1) cancelled Hector Pyser, PT [address], [place], [address], [facility] 06/26/2024 12:47:26 06/28/19 60311: Manual therapy cancelled Hector Pyser, PT [address], [place], [address], [facility] 06/26/2024 12:47:26 06/25/19 31486: Therapeutic Activities (1:1) cancelled Hector Pyser, PT [address], [place], [address], [facility] 06/23/2024 16:32:14 06/25/19 14621 Therapeutic Exercise (1:1) cancelled Hector Pyser, PT [address], [place], [address], [facility] 06/23/2024 16:32:14 06/25/19 12114: Manual therapy cancelled Hector Pyser, PT [address], [place], [address], [facility] 06/23/2024 16:32:14 06/19/19 87431: Therapeutic Activities (1:1) completed Na Gonzalez, MEDICAL INSURANCE CLAIMS PROCESSOR [address], [place], [address], [facility] 06/18/2024 15:01:55 06/19/19 85855 Therapeutic Exercise (1:1) completed Na Gonzalez, MEDICAL INSURANCE CLAIMS PROCESSOR [address], [place], [address], [facility] 06/18/2024 15:01:55 06/19/19 87500: Manual therapy completed Na Gonzalez, MEDICAL INSURANCE CLAIMS PROCESSOR [address], [place], [address], [facility] 06/18/2024 15:01:55 06/13/19 55356: Therapeutic Activities (1:1) completed Na Gonzalez, MEDICAL INSURANCE CLAIMS PROCESSOR [address], [place], [address], [facility] 06/13/2024 07:27:56 06/13/19 89917 Therapeutic Exercise (1:1) completed Na Gonzalez, MEDICAL INSURANCE CLAIMS PROCESSOR [address], [place], [address], [facility] 06/13/2024 07:27:26 06/13/19 76232: Manual therapy completed Na Gonzalez, MEDICAL INSURANCE CLAIMS PROCESSOR [address], [place], [address], [facility] 06/13/2024 07:27:52 06/10/19 26264 Therapeutic Exercise (1:1) completed Hector Pyser, PT [address], [place], [address], [facility] 05/31/2024 14:22:51 06/10/19 21204: Low complexity PT Eval completed Hector Pyser, PT [address], [place], [address], [facility] 05/31/2024 14:22:53 05/01/19 39570 Therapeutic Exercise (1:1) completed Hector Pyser, PT [address], [place], [address], [facility] 04/29/2024 14:50:39 05/01/19 33308: Low complexity PT Eval completed Hector Pyser, PT [address], [place], [address], [facility] 04/29/2024 14:50:41 12/04/19 24 Sports Knee 4&1 completed Juancarlos Iyer PA-C [address], [place], [address], [facility] 12/04/2023 11:27:50 06/08/19 24 Splint_Short Arm Fiberglass_11+ completed JUNI SHELTON [facility] 06/08/2023 13:25:25 Imaging Results None recorded. Procedure Notes None recorded. Medical Equipment None Reported. Allergies Allergen ID Allergen Name Allergen Category Reaction Reaction Severity Criticality Documentation Date Start Date Code Code System Note Provider Name and Address Organization Details Recorded Time 359811 penicilli n G benzathin e medicatio n Not available Not available Not available 04/23/20232012 7982 RxNorm GOMEZ brunson [facility] 13:22:51 586119 Dilaudid medicatio n Not available Not available Not available 04/23/20232012 56848 3 RxNorm GOMEZ LAMA [facility] 4 13:22:48 039050 Bactrim medicatio n Not available Not available Not available 04/23/20232020 56740 9 RxNorm JACKIE CISNEORS boy [facility] 5 14:12:53 Medications Name Sig [...] Kidney/Bladder Problems N Anemia N Heart Attack (AR) N Cholesterol N Diabetes N Bleeding Disorder [...] ICD10 Code Diagnosis IMO Codes Diagnosis Note [id number] Julian Vera, PT [facility] [address] [place] [address] 10/10/2024 15:00:25 10/10/2024 16:11:43 Pain of left knee joint 2469053013 54033 M25.562 819998 [id number] Krystina Clover, MEDICAL INSURANCE CLAIMS PROCESSOR [facility] [address] [place] [address] 10/15/2024 15:18:59 10/15/2024 15:59:03 Pain of left knee joint 8046993820 23347 M25.562 075701 [id number] Julian Vera, PT [facility] [address] [place] [address] 10/24/2024 15:07:10 10/24/2024 16:05:18 Pain of left knee joint 5674671854 69388 M25.562 [id number] Health Concerns Section Related Observation LastModified by Organization Detai ls LastModified Time None Recorded Concern Status LastModified by Organization Details LastModified Time None Recorded Payers Encounter Date Sequence Insurance Name Policy Number Policy Fernandez Covered Member ID Fernandez Member ID Guarantor Name 10/24/2024 1 [facility] - DOS ON OR AFTER 2022 - ONE CARE (MEDICARE REPLACEMENT/ADV ANTAGE - HMO) Atiya Dotson [id number] Atiya Dotson Notes Date Note Type Note Provider Name and Address Organization Details Recorded Time 10/24/2024 text/html Pt reports L knee has buckled a few times today (not really sure why), and also reporting L knee is still getting sore. Julian Vera, PT [address], [place], [address], [facility] 10/25/2024 23:08:14 OBGyn Episode No OBEpisode recorded.
--- OUTSIDE RECORDS SUMMARY | 2025-01-19 15:40 | XMS_ITS | Encounter Summary ---
Author Organization [employer] Address [address] [place] [address] 7 [place] [address] Care Team Providers Care Newscast Producer Name Role Phone Maddie Kim MD Primary Care Provider [phone] Reason for Visit * Reason Onset Date Comments Med Refill 03/19/2023 Encounter Details Date Type Department Care Team ([facility] Contact Info) Description 03/19/2023 Telephone [facility] MEDICINE [address] [place], [place] [phone] Maddie Kim MD [address] [place], [place] [phone] Med Refill Social History Tobacco Use Types [...] Pt agrees. MD Maddie Saravia RN; [facility] [place] Team Nurses Caller: Unspecified (2 weeks ago) I wrote her a work excuse extending her time for remote work until 04/05/23 * Telephone Encounter - Maddie Crawford RN - 04/02/2023 3:02 PM EST Images from the original note were not included. Triage call regarding Pt portal message below. Pt continues to have symptoms of Covid. Pt was seen in [facility] 03/29/[address] Gonzalez and dx [...] better [facility] Advised Pt will send this request [...] - Diagnosed With COVID-19 by Doctor (or CAKE CUTTER MACHINE/PA) and Mild Symptoms * General Care Advice for COVID-19 Symptoms * Humidifier * Coughing Spells * Pain and Fever Medicines * Mild Stomach and Intestinal Symptoms During COVID-19 Illness Atiya Johnson [facility] Clinial Support (supporting Lorrie Alaniz [...] Description 03/27/2025 1:30 PM EST Office Visit [facility] MEDICINE [address] [place] [address] Maddie Kim MD [address] [place] [address] documented as of this encounter Visit Diagnoses Not on filedocumented in this encounter Additional Health Concerns Assessment Noted Time PHQ-9 Depression Total Score: 0 05/30/19 23 3:26 PM EDT documented as of this encounter Care Teams Newscast Producer Relationship Specialty Start Date End Date Maddie Kim MD [address] [place] [address] PCP - General Family Medicine 07/12/20 Willie Gage 01/17/22 01/05/25 [facility] 12/25/24 documented as of this encounter
--- OUTSIDE RECORDS SUMMARY | 2025-01-19 15:41 | XMS_ITS | Encounter Summary ---
Author Organization [employer] Address [address] [place] [address] [address] [place] [address] Care Team Providers Care Interactive Media Specialist Name Role Phone Maddie Kim MD Primary Care Provider [phone] Reason for Visit * Reason Onset Date Comments Prior Authorization 05/19/2024 Encounter Details Date Type Department Care Team ([facility] Contact Info) Description 05/19/2024 Telephone [facility] MEDICINE [address] [place] [address] [phone] Maddie Kim MD [address] [place], [place] [phone] Prior Authorization Social History Tobacco Use Types [...] Tirzepatide-Weight Management (Zepbound) 2.5 MG/0.5ML solution auto-injector. Wiener Packer advise pt 7-14 business days. Pt verbalized [...] re fax it over. Contact pt at [phone] documented in this encounter Plan of Treatment Upcoming Encounters Date Type Department Care Team (Late st Contact Info) Description 03/27/2025 1:30 PM EST Office Visit [facility] MEDICINE [address] [place] [address] Maddie Kim MD [address] [place] [address] documented as of this encounter Visit Diagnoses Not on filedocumented in this encounter Additional Health Concerns Assessment Noted Time PHQ-9 Depression Total Score: 3 06/15/19 24 11:48 AM EDT documented as of this encounter Care Teams Interactive Media Specialist Relationship Specialty Start Date End Date Maddie Kim MD [address] [place] [address] PCP - General Family Medicine 07/12/20 Willie [facility]aring 01/17/22 01/05/25 [facility] 12/25/24 documented as of this encounter
--- OUTSIDE RECORDS SUMMARY | 2025-01-19 15:41 | XMS_ITS | Encounter Summary ---
Author Organization [employer] Address [address] [place] [address] 7 [place] [address] Care Team Providers Care Glycerin Operator Name Role Phone Maddie Kim MD Primary Care Provider [phone] Reason for Referral * Consultation (Routine) - Closed Specialty Diagnoses / Procedures Referred By Sindi mejia Referred To Contact Physical Therapy Diagnoses Cervical spine pain Maddie Kim MD [address] [place] [address] Phone: tel: fax: AT Physical Therapy - [address] [address] Phone: tel: fax: Referral ID Status Reason Start Date Expiration Date V isits Requested Visits Authorized [id number] Closed Specialty Services Required 10/17/2024 10/17/2025 1 1 Encounter Details Date Type Department Care Team (Late st Contact Info) Description 10/17/2024 Orders Only [facility] MEDICINE [address] [place] [address] Maddie Kim MD [address] [place], [place] [phone] Cervical spine pain (Primary Dx) Social History [...] 1:30 PM EST Office Visit [facility] MEDICINE [address] [place] [address] Maddie Kim MD [address] [place] [address] Scheduled Referrals Name Type Priority Associated Diagnoses [...] documented as of this encounter Care Teams Glycerin Operator Relationship Specialty Start Date End Date Maddie Kim MD [address] [facility] [place] [address] PCP - General Family Medicine 07/12/20 Willie Gage 01/17/22 01/05/25 [facility] 12/25/24 documented as of this encounter
--- OUTSIDE RECORDS SUMMARY | 2025-01-19 15:41 | XMS_ITS | Encounter Summary ---
Author Organization [employer] Address [address] [place] [address] [address] [place] [address] Care Team Providers Care Commercial Baking Teacher Name Role Phone Maddie Kim MD Primary Care Provider [phone] Encounter Details Date Type Department Care Team ([facility] st Contact Info) Description 07/07/2024 Orders Only [facility] MEDICINE [address] [place], [place] [phone] Maddie Kim MD [address] [place], [place] [phone] Benign hypertension (Primary Dx) Social History Tobacco [...] Description 03/27/2025 1:30 PM EST Office Visit [facility] MEDICINE [address] [place] [address] Maddie Kim MD [address] [place] [address] documented as of this encounter Procedures Procedure Name Priority Date/Time Associated Diagnosis Comments BASIC METABOLIC PANEL Routine 07/10/2024 8:29 AM EDT Benign hypertension documented in this encounter Results * (ABNORMAL) Basic Metabolic Panel (07/10/2024 8:29 AM EDT) Sodium 136 135 - 145 mmol/L [facility] Potassium 4.3 3.3 - 5.1 mmol/L [facility] Chloride 105 96 - 108 mmol/L [facility] Carbon Dioxide 24 22 - 29 mmol/L [facility] Anion Gap 11(L) 12 - 20 [facility] Urea Nitrogen (BUN) 13 9 - 16 mg/dL [facility] Creatinine, Serum 0.68 0.5 - 1.4 mg/dL [facility] Estimated Glomerular Filt Rate >60 [facility] Comment:Chronic Kidney Disea se: Estimated GFR < 60 mL/min/1.82q2Lzsayl Kidney Disease: Estimated GFR < 15 mL/min/1.73m2 Glucose 88 60 - 115 mg/dL [facility] Calcium 9.3 8.4 - 10.2 mg/dL [facility] Blood Venous blood specimen / Unknown 07/10/2024 8:29 AM EDT 07/10/2024 8:29 AM EDT us Maddie Kim MD LAB BLOOD ORDERABLES Final Res ult [facility] [address] [place] [address] [phone] documented in this encounter Visit Diagnoses Diagnosis Benign hypertension- Primary Essential hypertension, benign documented in this encounter Additional Health Concerns Assessment Noted Time PHQ-9 Depression Total Score: 9 07/05/19 25 6:48 AM EDT documented as of this encounter Care Teams Commercial Baking Teacher Relationship Specialty Start Date End Date Maddie Kim MD [address] [place] [address] PCP - General Family Medicine 07/12/20 Willie Gage 01/17/22 01/05/25 [facility] 12/25/24 documented as of this encounter
--- OUTSIDE RECORDS SUMMARY | 2025-01-19 15:41 | XMS_ITS | Continuity of Care Document ---
Author Organization [employer] [facility], [facility] Address [address] [place] [address] Care Team Providers Care Regulatory Affairs Manager Name Role Phone HIM CCA OTHER Unavailable Primary Care Provider [phone] Assessment Encounter Date Assessment Date Assessment LastModified by Organization Details LastModified Time 10/26/2024 10/26/2024 I provided real -time medical direction via phone for this encounter, and was available for additional phone based assistance as needed. I have reviewed and agree with the Assessment and Plan as documented by the Client Care Manager. We discussed the diagnostic uncertainty of home [...] flags reviewed. Advised if develops CP/severe SOB/turning blue/uncontrolle d n/v/d or black/bloody emesis or stool/ AMS/ syncope/ hi fever unresponsive to APAP to call 911- verbalized understanding of instruction Not available 10/26/2024 18:03:11 Plan of Treatment Reminders Order Date Submit Date Provider Last Modified By Organization Details Last Modified Time Details Appointments None recorded. Lab None recorded. Referral None recorded. Procedures None recorded. Surgeries None recorded. Imaging None recorded. Medication Orders ketorolac 30 mg/mL injection solution 2024 025 [email or web address] [facility], [address] [place] [address], [id number], 17:39:06 Patient TargetsNo targets recorded. Patient InstructionsNo instructions [...] Name and Address Organization Details Recorded Time 20741 Dilantin medicatio n Not available Not available Not available 02/22/2024 0 RxNorm Not Available [facility] - production 14:48:20 39006 sulfameth oxazole medicatio n Not available Not available Not available 02/22/2024 56826 [facility] 14:48:20 97084 trimethop rim medicatio n Not available Not available Not available 02/22/2024 72961 RxNorm Not Available [facility] - production 5 10:23:13 08990 Product containin g penicilli n (product) medicatio n Not available Not available Not available 02/22/2024 90062 8001 SNOMED Not Available [facility] - production 5 14:48:20 01391 penicilli n G benzathin e medicatio n Not available Not available Not available 02/22/2024 7982 RxNorm Not Available [facility] - production 5 14:48:20 21534 penicilli n G procaine medicatio n Not available Not available Not available 02/22/2024 7983 RxNorm Not Available [facility] - production 5 14:48:20 32768 Non-stero idal anti-infl ammatory agent (substanc e) medicatio n other Not available [facility] 10/06/2024 17402 5008 SNOMED H/o GIB and gastr ic ulcer s with all NSAID s - told not to take Fawn Coelho MD [address] [facility],[address], [place], [address], CORRIE - ARIELLE GARCIA 5 15:15:41 Medications Name Sig Start Date [...] t Available Vitals Date Recorded Body temperature Body height Respiratory rate Body weight Heart rate Oxygen saturation Systolic And Diastolic Provider Name and Address Organization Details Last Updated DateTime 5 98.1 [degF] 157.48 cm 16 /min 85074.4 8 g 73 /min 99 % 158/84 mm[Hg] Not Available [facility] - production 5 17:36:19 Social History None recorded. Functional Status None recorded. Mental Status None recorded. Family History Nothing Reported. Medical History No medical history recorded. Gynecological HistoryNo gynecological history recorded. Obstetrics History GPAL:G 0 P 0 0 0 0 Past Encounters Encounter ID Performer Location Encounter Start Date Encounter Closed Date Diagnosis/Indication Diagnosis SNOMED-CT Code Diagnosis ICD10 Code Diagnosis IMO Codes Diagnosis Note [id number] RHEA POLLARD MD [facility] [address] [address] 10/05/2024 14:54:45 10/06/2024 20:52:55 Spasm of back muscles 217639850 M62.830 [id number] [address]wn [address] [facility] [address] [address] 10/06/2024 14:54:22 10/06/2024 21:05:01 Low back pain [id number] M54.50 [id number] TRISTON LOJA NP, S [facility] [address] [id number] 10/26/2024 17:36:16 10/27/2024 15:59:17 Acute low back pain [id number] M54.50 [id number] Health Concerns Section Related Observation LastModified by Organization Detai ls LastModified Time None Recorded Concern Status LastModified by Organization Details LastModified Time None Recorded Payers Encounter Date Sequence Insurance Name Policy Number Policy Fernandez Covered Member ID Fernandez Member ID Guarantor Name 10/26/2024 1 [facility] - DOS ON OR AFTER 2022 - DUAL ELIGIBLE - LONG-TERM OPTIONS AND ONE CARE (MEDICARE REPLACEMENT/ADV ANTAGE - HMO) Atiya Dotson [id number] Atiya Dotson Notes Date Note Type Note Provider Name and Address Organization Details Recorded Time 10/26/2024 text/html ROS as noted in the HPI [facility] Nurse Triage Notes (Zaida Zambrano): Reason [...] ...................... ...................... ...................... ...................... ...................... ...................... ......... Client Care Manager Note From Vaughn Ellington: [facility] responds to the listed address for a 49 yof w/ a c/c of back pain. Upon arrival on scene, pt answers the door to let MARLENE inside her small and well-kept apartment she [...] topical analgesic to help w/ the pain. [facility] contacts [facility] and discusses the above. After confirming no known kidney issues, GI bleeds, or anticoagulation and reconfirming allergies, [facility] orders 15mg toradol IM and recommends pt contact her PCP. [facility] administers 15mg toradol in the R deltoid using aseptic technique. Red flag warning signs are discussed w/ the pt and she thanks [facility] for coming. [facility] is clear. Report completed by FAVIO Ellington [id number]. [facility] Medication Orders: ketorolac 30 mg/mL injection solution: Administered Comment: R deltoid ...................... ...................... ...................... ...................... ...................... ...................... ......... [facility] Consulted: Triston Loja ...................... ...................... ...................... ...................... ...................... ...................... ......... Disposition: Fulfilled TRISTON LOJA NP, S [address] [facility], [place], [address], ARIELLE CHRISTIANSEN 10/26/2024 18:18:44 OBGyn Episode No OBEpisode recorded.
== END 2025-01-19 13:54 | disposition home or self-care (01) ==
LOC: HO.HGI 11:51
PROVIDERS: PCP General Practice; Visit Provider Nurse Practitioner Family
DX: K21.9 Gastro-esophageal reflux disease without esophagitis (principal); K59.01 Slow transit constipation; R10.84 Generalized abdominal pain; R14.0 Abdominal distension (gaseous)
CPT/HCPCS: 99214; G2211

== ENCOUNTER → 2025-01-19 11:51 | Outpatient (BNVA) | payer OTHER, SELFPAY | PROVIDERS: PCP General Practice; Visit Provider Nurse Practitioner Family | DX: K21.9 Gastro-esophageal reflux disease without esophagitis (principal); K59.01 Slow transit constipation; F17.210 Nicotine dependence, cigarettes, uncomplicated; Z71.3 Dietary counseling and surveillance; Z79.899 Other long term (current) drug therapy | CPT/HCPCS: 99212 ==

== ENCOUNTER 2025-01-23 12:32 | Emergency (ER) | payer OTHER, SELFPAY ==
[2025-01-23 12:46] VITALS: BP 132/89; PULSE 79; RESP 18; TEMP 37.2; O2SAT 97; BMI 32.8
--- NOTE | 2025-01-23 12:46 | ED.GENADULT ---
HPI - General Adult General Chief complaint: Back Pain/Injury Stated complaint: back pain Related Data Home Medications ?Medication ?Instructions ?Recorded ?Confirmed multivitamin 1 tab PO DAILY 03/25/24 12/17/24 omeprazole 20 mg capsule,delayed 20 mg PO BID 03/25/24 12/17/24 release docusate sodium 100 mg capsule 100 mg PO BID PRN Constipation 07/07/24 12/17/24 thiamine HCl (vitamin B1) 50 mg 50 mg PO DAILY 07/07/24 12/17/24 tablet (Vitamin B-1) baclofen 10 mg tablet 10 mg PO TID 01/19/25 cholecalciferol (vitamin D3) 50 50 mcg PO DAILY 01/19/25 mcg (2,000 unit) capsule (Vitamin D3) ferrous gluconate 324 mg (38 mg 324 mg PO QAM 01/19/25 iron) tablet hydrocortisone 2.5 % topical cream appl topical BID 01/19/25 polyethylene glycol 3350 17 17 g PO DAILY 01/19/25 gram/dose oral powder tirzepatide (weight loss) 12.5 12.5 mg subcut QWEEK 01/19/25 mg/0.5 mL subcutaneous pen injector (Zepbound) Previous Rx's ?Medication ?Instructions ?Recorded bupropion HCl 100 mg tablet,12 hr 100 mg PO BID as directed #60 tabs 01/12/25 sustained-release cariprazine 1.5 mg capsule 1.5 mg PO DAILY 30 days #30 caps 01/12/25 chlorpromazine 25 mg tablet 50 - 75 mg (2 - 3 x 25 mg) PO 01/12/25 BEDTIME PRN insomnia #60 tabs cyclobenzaprine 10 mg tablet 10 mg PO TID #90 tabs 01/12/25 gabapentin 400 mg capsule 400 mg PO TID #90 caps 01/12/25 gabapentin 800 mg tablet 800 mg PO BEDTIME as directed #30 01/12/25 tabs paliperidone palmitate 234 mg/1.5 234 mg (1.5 mL) IM QMONTH #1.5 mL 01/12/25 mL intramuscular syringe (Invega Sustenna) prazosin 2 mg capsule 4 mg (2 x 2 mg) PO BEDTIME 30 days 01/12/25 #60 caps propranolol 10 mg tablet See Rx Instructions .Route 01/12/25 .COMPLEX as directed #120 tabs trazodone 100 mg tablet 200 mg (2 x 100 mg) PO BEDTIME PRN 01/12/25 sleep #60 tabs bisacodyl 5 mg tablet,delayed 10 mg (2 x 5 mg) PO BEDTIME #180 01/19/25 release (Dulcolax (bisacodyl)) tabs polyethylene glycol 3350 17 238 g PO ONCE #238 grams 01/19/25 gram/dose oral powder (Miralax) Allergies Allergy/AdvReac Type Severity Reaction Status Date / Time hydromorphone Allergy Intermediate Rash Verified 01/23/25 12:48 acyclovir Allergy Unknown Unknown Verified 01/23/25 12:48 insect venom (INSECT BITES) Allergy Unknown Difficulty Verified 01/23/25 12:48 Breathing sulfamethoxazole (From Allergy Unknown Anaphylaxis Verified 01/23/25 12:48 BACTRIM) trimethoprim (From BACTRIM) Allergy Unknown Anaphylaxis Verified 01/23/25 12:48 Penicillins (PCN) Allergy Rash Verified 01/23/25 12:48 PMFSH Past Medical History Medical History (Updated 01/23/25 @ 18:30 by YAYO Quintanilla) GERD (gastroesophageal reflux disease) Mild sleep apnea Bipolar I disorder, most recent episode (or current) depressed FH: total knee replacement Hx of migraines Osteoarthritis of lower back Lumbar herniated disc HTN (hypertension) Diabetes Substance dependence, daily use Morbid obesity with BMI of 40.0-44.9, adult Lumbar herniated disc Trigger finger Carpal tunnel syndrome Bowel obstruction Abdominal wall ulcer Hypertension LGSIL on Pap smear of cervix PTSD (post-traumatic stress disorder) Cocaine abuse Baclofen overdose Bipolar 1 disorder, manic, moderate Alcohol abuse Substance abuse Psychiatric diagnosis Hypertension Surgical History History of total knee replacement (TKR) H/O colonoscopy H/O gastric sleeve History of ankle surgery History of carpal tunnel surgery of right wrist Total knee replacement status H/O removal of cyst Gastric bypass status for obesity Hx of tubal ligation History of stress incontinence procedure using tension free vaginal tape History of knee replacement procedure of right knee History of cholecystectomy History of ankle surgery Family History Family History Family/Other Breast cancer Maternal Aunt Cervical cancer Mother Stomach cancer Social History Social History Household Members: Friend(s) and None Household Members Other:: lives by self Housing: Apartment Do you presently have visiting nurse or other home services: Yes ([facility]) Alcohol intake: former Comment: Discharge date is TBD Patient Tobacco Use Status: Current everyday Tobacco user Tobacco use type: Cigarette Cigarette Packs Per Day: 0.5 Cigarettes Per Day: 10.0 Years Smoked: 34 e-Cigarette/Vaping Use: Currently Using Second Hand Smoke Exposure: No Substance Use Type: Marijuana Advance Directives: Yes Advance Directives on File: Yes Advance Directives Date on File: 03/18/21 Do you have a plan to hurt others: No Plan service: No 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al status: unemployed 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 Patient states that she has been moving a lot of things lately but this does not feel like her typical disc back pain. Detailed physical exam and review of systems are deferred to the mid level clinician. Labs ordered. Patient placed back in the waiting room pending room availability and results. Patient left the department without completing treatment. Patient left the department before myself or any of the other emergency department clinicians could explain to or review with the patient; physical exam findings, test results, need or lack there of for additional testing, need or lack there of for a procedure to be performed, need or lack there of for hospital admission / transfer, need or lack there of for prescription medication, treatment options, or a treatment plan. Patient's limited physical exam performed in triage showed a non-toxic individual with appropriate breathing, alert and oriented, and ambulating without assistance. Discharge Plan Discharge Clinical Impression: Back pain Patient Disposition: Left W/O Completing Treatment Prescriptions: No Action multivitamin Tablet 1 tab PO DAILY omeprazole 20 mg capsule,delayed release(DR/EC) 20 mg PO BID docusate sodium 100 mg capsule 100 mg PO BID PRN (Reason: Constipation) Rx Instructions: Patient takes PRN. thiamine HCl (vitamin B1) [Vitamin B-1] 50 mg Tablet 50 mg PO DAILY cyclobenzaprine 10 mg Tablet 10 mg PO TID Qty: 90 0RF Rx Instructions: Patient states she takes PRN. Last filled March 2024. bupropion HCl 100 mg tablet sustained-release 12 hr 100 mg PO BID Qty: 60 0RF Rx Instructions: in AM and lunch propranolol 10 mg tablet See Rx Instructions .ROUTE .COMPLEX Qty: 120 0RF Rx Instructions: take 2 tablets po daily in AM, take one tablet po daily at noon, take one tablet po daily at 5pm prazosin 2 mg capsule 4 mg PO BEDTIME 30 Days Qty: 60 0RF gabapentin 400 mg capsule 400 mg PO TID Qty: 90 0RF Rx Instructions: take in AM/ noon / 5pm gabapentin 800 mg tablet 800 mg PO BEDTIME Qty: 30 0RF trazodone 100 mg tablet 200 mg PO BEDTIME PRN (Reason: sleep) Qty: 60 0RF chlorpromazine 25 mg tablet 50 - 75 mg PO BEDTIME PRN (Reason: insomnia) Qty: 60 0RF Rx Instructions: alternating with trazodone as prn sleep Invega Sustenna 234 mg/1.5 mL syringe 234 mg IM QMONTH Qty: 1.5 0RF cariprazine 1.5 mg capsule 1.5 mg PO DAILY 30 Days Qty: 30 0RF baclofen 10 mg tablet 10 mg PO TID hydrocortisone 2.5 % cream topical BID polyethylene glycol 3350 17 gram/dose powder 17 g PO DAILY ferrous gluconate 324 mg (38 mg iron) tablet 324 mg PO QAM cholecalciferol (vitamin D3) [Vitamin D3] 50 mcg (2,000 unit) capsule 50 mcg PO DAILY Zepbound 12.5 mg/0.5 mL pen injector 12.5 mg subcut QWEEK bisacodyl [Dulcolax (bisacodyl)] 5 mg tablet,delayed release (DR/EC) 10 mg PO BEDTIME Qty: 180 4RF polyethylene glycol 3350 [Miralax] 17 gram/dose powder 238 g PO ONCE Qty: 238 0RF Rx Instructions: As directed by gastroenterology department at [facility] Discharge Date/Time: 01/23/25 16:22
--- OUTSIDE RECORDS SUMMARY | 2025-01-23 19:01 | XMS_ITS | Encounter Summary ---
Author Organization [employer] Address [address] [place] [address] [address] [place] [address] Care Team Providers Care Oceanography Professor Name Role Phone Maddie Kim MD Primary Care Provider [phone] Encounter Details Date Type Department Care Team ([facility] st Contact Info) Description 07/29/2023 Orders Only [facility] [address], [place] [phone] Maddie Kim MD [address] [place], [place] [phone] Social History Tobacco Use Types Packs/Day Years [...] Description 03/27/2025 1:30 PM EST Office Visit [facility] [address] [place] [address] Maddie Kim MD [address] [place] [address] documented as of this encounter Visit Diagnoses Not on filedocumented in this encounter Additional Health Concerns Assessment Noted Time PHQ-9 Depression Total Score: 3 06/15/19 24 11:48 AM EDT documented as of this encounter Care Teams Oceanography Professor Relationship Specialty Start Date End Date Maddie Kim MD [address] [place] [phone] PCP - General Family Medicine 07/12/20 Willie Gage 01/17/22 01/05/25 [facility] 12/25/24 documented as of this encounter
--- OUTSIDE RECORDS SUMMARY | 2025-01-23 19:01 | XMS_ITS | Data Portability ---
Author Organization [facility] [facility], [facility] Address [address] [place] [address] Care Team Providers Care Algology Teacher Name Role Phone HIM CCA OTHER Unavailable Primary Care Provider Assessment Encounter Date Assessment Date Assessment LastModified by Organization Details LastModified Time 09/13/2024 09/13/2024 As noted, we ghassan e called to see this patient regarding concerns of vaginal discharge. Evaluation in the field was performed by my manager acquisition colleague, as noted above, I provided real-time [...] Assessment and Plan as documented by the Surgical Services Manager. We discussed the diagnostic uncertainty of [...] Assessment and Plan as documented by the Surgical Services Manager. We discussed the diagnostic uncertainty of [...] Assessment and Plan as documented by the Surgical Services Manager. We discussed the diagnostic uncertainty of [...] to call 911- verbalized understanding of instruction [email or web address] Not available 10/26/2024 18:03:11 11/22/2024 11/22/2024 I provided real -time medical direction via phone for this encounter and was available for additional phone-based assistance as needed. I have reviewed and agree with the Assessment and Plan as documented by the Surgical Services Manager. Patient given the opportunity to ask questions. Our service contacted for an assessment of: Migraine KO As per above, patient with acute onset of MHA this am. Has taken usual meds. No NSAIDs today. Has tolerated Toradol in the past. Per manager acquisition on the scene, VSS, AF Please read the manager acquisition note for their exam findings. Impression: Plan: [...] Lab BMP, serum or plasma 2024 025 [facility], [address] [place] [address], [id number] 16:35:51 BMP, serum or plasma 2024 025 [facility], [address] [place] [address], [id number] 14:22:54 urinalysis, dipstick 2024 025 [facility], [address] [place] [address], [id number] 14:22:31 Referral None recorded. Procedures None recorded. Surgeries None recorded. Imaging None recorded. Medication Orders ketorolac 30 mg/mL injection solution 2024 025 [facility], [address] [place] [address], [id number], 11:19:38 ketorolac 30 mg/mL injection solution 2024 025 [email or web address] [facility], [address] [place] [address], [id number], 09/07/202 5 17:39:06 acetaminoph en 500 mg tablet [id number], [phone] [place], [address], 5 15:18:54 ketorolac 30 mg/mL injection solution [address] [facility], [address] [place] [address], [id number], 5 15:18:54 Patient TargetsNo targets recorded. Patient [...] Name and Address Organization Details Recorded Time 76389 Dilantin medicatio n Not available Not available Not available 02/22/2024 57801 0 [facility] Available [facility] 5 14:48:20 97156 sulfameth oxazole medicatio n Not available Not available Not available 02/22/2024 57871 Rx[facility] Not Available [facility] 5 14:48:20 31732 trimethop rim medicatio n Not available Not available Not available 02/22/2024 65813 RxNorm Not Available [facility] 5 10:23:13 99362 Product containin g penicilli n (product) medicatio n Not available Not available Not available 02/22/2024 43636 8001 SNOMED Not Available [facility] 5 14:48:20 78061 penicilli n G benzathin e medicatio n Not available Not available Not available 02/22/2024 7982 Rx[facility] Not Available [facility] 5 14:48:20 00268 penicilli n G procaine medicatio n Not available Not available Not available 02/22/2024 7983 RxNorm Not Available [facility] 5 14:48:20 16246 Non-stero idal anti-infl ammatory agent (substanc e) medicatio n other Not available high 10/06/2024 62130 5008 SNOMED H/o GIB and gastr ic ulcer s with all NSAID s - told not to take Fawn Coelho MD [address] [facility],[address], [place], [phone], [facility] - [employer] 5 15:15:41 Medications Name Sig Start Date [...] [degF] 16 /min 126/90 mm[Hg] Not Available [employer] 5 13:58:51 Date Recorded Respiratory rate Oxygen saturation Body temperature Heart rate Systolic And Diastolic Provider Name and Address Organization Details Last Updated DateTime 5 16 /min 99 % 98.8 [degF] 89 /min 116/80 mm[Hg] Not Available [employer] 5 15:10:26 Date Recorded Heart rate Respiratory rate Body temperature Oxygen saturation Systolic And Diastolic Provider Name and Address Organization Details Last Updated DateTime 5 87 /min 18 /min 97.7 [degF] 99 % 152/98 mm[Hg] Not Available [employer] 5 14:54:26 Date Recorded Body temperature Body height Respiratory rate Body weight Heart rate Oxygen saturation Systolic And Diastolic Provider Name and Address Organization Details Last Updated DateTime 5 98.1 [degF] 157.48 cm 16 /min 69497.4 8 g 73 /min 99 % 158/84 mm[Hg] Not Available [employer] 5 17:36:19 Date Recorded Oxygen saturation Heart rate Respiratory rate Body temperature Systolic And Diastolic Provider Name and Address Organization Details Last Updated DateTime 5 99 % 72 /min 18 /min 98.5 [degF] 145/92 mm[Hg] Not Available [employer] [facility] [employer] - production 11:04:48 Social History None recorded. Functional Status None recorded. Mental Status None recorded. Family History Nothing Reported. Medical History No medical history recorded. Gynecological HistoryNo gynecological history recorded. Obstetrics History GPAL:G 0 P 0 0 0 0 Past Encounters Encounter ID Performer Location Encounter Start Date Encounter Closed Date Diagnosis/Indication Diagnosis SNOMED-CT Code Diagnosis ICD10 Code Diagnosis IMO Codes Diagnosis Note [id number] KALYN YAO MD [facility] [address] [place] [phone] 02/22/2024 21:29:01 02/23/2024 18:48:12 Urinary symptoms 812320039 R39.9 Evaluation in the field was performed by my manager acquisition colleague, as noted above, I provided real-time [...] dose was administer ed by the manager acquisition. -To alleviate the burning sensation, a prescripti [...] or flank pain or any other concerns. [id number] Fawn Coelho MD [facility] [address] [place] [id number] 02/23/2024 14:34:12 02/23/2024 18:56:04 Urinary symptoms 717931948 R39.9 [id number] Aramis Gallardo MD [facility] [address] [place] [id number] 02/26/2024 11:22:16 02/28/2024 11:56:29 Urinary symptoms 170933421 R39.9 Fever 605042367 R50.9 [id number] Jessica Hadley MD [facility] [address] [place] [id number] 03/23/2024 13:03:05 03/25/2024 16:45:46 Urinary symptoms 047778892 R39.9 As noted, we were called to see this patient regarding concerns of urinary symptoms. Evaluation in the field was performed by my manager acquisition colleague, as noted above, I provided real-time [...] changes to consciousn ess, chest pain, dypsnea. [id number] Alisia Aguirre MD [facility] - [address] [phone] 04/01/2024 18:50:28 04/01/2024 19:49:17 Low back pain 523086709 M54.50 48 year old female with a [...] lower extremitie s. [facility] she took an excedrin which is helping bring the paind own. Exam notable for normal vital signs, neurologic exam is grossly normal. Presentati on consistent with acute on chronic lumbar radiculopa thy, no red flags noted. I have reviewed and agree with the assessment and plan as documented by the manager acquisition. I provided real-time medical direction for this encounter and was immediatel y available to provide additional phone-base d assistance as needed. We discussed the diagnostic uncertaint y of home visits and associated risks. We discussed the need to seek care urgently/e mergently in the setting of any new or worsening symptoms. [id number] Fawn Coelho MD [facility] - [address] [id number] 04/18/2024 20:44:44 04/19/2024 19:18:03 Essential hypertension 40860422 I10 [id number] Katia Irvin MD [facility] - [address] [address] 06/17/2024 11:35:49 06/17/2024 13:51:22 Lightheadedness 411349215 R42 [id number] DELROY DIAZ MD [place] [id number] 07/06/2024 17:58:16 07/07/2024 17:54:54 Acute headache 097496116 R51.9 [id number] Leni Joseph MD [facility] [place] [id number] 09/13/2024 13:58:48 09/14/2024 15:14:26 Vaginal discharge 205508813 N89.8 72554 Dizziness 679348549 R42 [id number] RHEA TOLENTINO MD [place] [id number] 10/05/2024 14:54:45 10/06/2024 20:52:55 Spasm of back muscles 235566942 M62.830 [id number] Fawn Coelho MD [place] [id number] 10/06/2024 14:54:22 10/06/2024 21:05:01 Low back pain 933121458 M54.50 [id number] TRISTON LOJA NP, [address] [place] [id number] 10/26/2024 17:36:16 10/27/2024 15:59:17 Acute low back pain 620020491 M54.50 [id number] Fawn Coelho MD [address] [phone] 11/22/2024 11:04:45 11/22/2024 12:18:43 Acute migraine [id number] 63496 G43.909 [id number] Health Concerns Section Related Observation LastModified by Organization Detai ls LastModified Time None Recorded Concern Status LastModified by Organization Details LastModified Time None Recorded Advance Directives Directive None Recorded Payers Insurance Date Sequence Insurance Name Policy Number Policy Fernandez Covered Member ID Fernandez Member ID Guarantor Name 11/22/2024 1 [facility] - DOS ON OR AFTER 2022 - DUAL ELIGIBLE - SHELTER OPTIONS AND ONE CARE (MEDICARE REPLACEMENT/ADV ANTAGE - HMO) Atiya Rollearez [id number] Atiya Y Dotson Notes Date Note Type [...] signs of when to seek emergency care. Surgical Services Manager Organization Information for Sandro Kearney Business Legal Name: [facility] Address: [address] [place] [address], [place] [address], Survey Rodman: Jeff Bautista MD CLIA No.: [id number] Surgical Services Manager POC Test Results from Sandro Kearney [facility] (13:55:20) pH: 7.42pH units pCO2: 34.6mmHg pO2: [...] ...................... ...................... ...................... ...................... ...................... ...................... ......... Surgical Services Manager Note From Sandro Kearney: This 48-year-old female with a history including but not limited to bipolar disorder, GERD, HTN, anemia requested a visit today address brown vaginal discharge since Sunday. Patient states she believes it's a yeast infection, purchased OTC Monistat and Vagisil topical with no improvement in symptoms. Patient states she's experienced vaginal burning since starting the Vagisil. Patient contacted her COMPOUND FINISHER who recommended being swabbed before being treated [...] instructed her to follow up with her COMPOUND FINISHER to be swabbed, continue to stay well hydrated and present to the emergency department for any new or worsening severe symptoms such as uncontrollable nausea/vomiting, severe abdominal or flank pain, high fever, altered mental status. The patient was given the opportunity to ask questions and is agreeable to this plan. [facility] Lab Orders: BMP, serum or plasma: Performed urinalysis, dipstick: Performed ...................... ...................... ...................... ...................... ...................... ...................... ......... [facility] Consulted: Leni Joseph ...................... ...................... ...................... ...................... ...................... ...................... ......... Disposition: Lizette Joseph MD [address] [place] [address],[address], [place], [address], MapplasARIELLE 09/13/2024 14:20:16 10/05/2024 text/html ROS as noted in the [facility] CRC Nurse Triage Notes (Bari Salinas): [...] ...................... ...................... ...................... ...................... ...................... ...................... ......... Surgical Services Manager Note From Jacob Miramontes: Pt is a [...] Sunday. Red Flag warnings were gone over. [facility] Medication Orders: acetaminophen 500 mg tablet: Administered ketorolac 30 mg/mL injection solution: Administered ...................... ...................... ...................... ...................... ...................... ...................... ......... [facility] Consulted: Rhea Tolentino ...................... ...................... ...................... ...................... ...................... ...................... ......... Disposition: Fulfilled RHEA TOLENTINO MD [address] [facility],[address], [place], [address], [place] [email or web address] 10/06/2024 13:36:11 10/06/2024 text/html CRC Nurse Triage [...] to seek emergency care -Bobo Cordova RN Surgical Services Manager Organization Information for Temo Martinez Business Legal Name: [employer]. Address: [address] [place] [address], Survey Rodman: Benjy Haile MD CLIA No.: [id number] Surgical Services Manager POC Test Results from Temo Martinez [employer] Chem8+ (15:01:39) Na: 142mEq/L K: 3.9mEq/L Cl: 109mEq/L iCa: 1.26mmol/L TCO2: 21mmol/L Glu: 96mg/dL BUN: 10mg/dL Crea: 0.8mg/dL Hct: 40% Hb: 13.6g/dL Ammol/L Cartridge Number: [id number] Attachments uploaded as part of this test result can be found under Documents section. ...................... ...................... ...................... ...................... ...................... ...................... ......... Surgical Services Manager Note From Temo Martinez: Encountered patient conscious, solar and ambulatory. 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 [facility] and was treated with Toradol, was looking for a repeat dose today to hold her over until her primary care appointment on 10/07/24. BMP performed, values uploaded via [employer]. Skin warm, dry and of appropriate color for ethnicity. Head and neck, free of trauma and edema. -JVD. Breath sounds present clear and equal bilaterally. Abdomen is soft, nontender and non-distended. Extremities free of trauma edema. [facility] contacted: reports multiple administrations of Toradol is not part of [facility] standard practice and is also likely to be detrimental to patient. [facility] encourages patient to continue to take her prescribed Flexeril and Tylenol and to also request evaluation by a fingerprint expert while at her primary care appointment tomorrow. Patient was additionally encouraged to seek further medical attention including 911 if she were to develop chest pain and shortness of breath or uncontrollable pain. Patient verbalizes understanding of the plan and states she is comfortable remaining home today. [facility] Lab Orders: BMP, serum or plasma: Performed ...................... ...................... ...................... ...................... ...................... ...................... ......... [facility] Consulted: Fawn Coelho ...................... ...................... ...................... ...................... ...................... ...................... ......... Disposition: Fulfilled Fawn Coelho MD [address] [place] [address],[address], [place], [phone] [email or web address] 10/06/2024 16:28:04 10/26/2024 text/html ROS as noted in the [facility] CRC Nurse Triage Notes (Zaida Zambrano): [...] ...................... ...................... ...................... ...................... ...................... ...................... ......... Surgical Services Manager Note From Vaughn Ellington: SC6 responds to the listed address for a 49 yof w/ a c/c of back pain. Upon arrival on scene, pt answers the door to let [facility] inside her small and well-kept apartment [...] no bladder or bowel incontinence is reported. [facility] obtains a focused assessment on pt's back. No visible or gross abnormalities are noted and pt has full ROM w/ some pain relief w/ back extension. Tenderness upon palpation to the paraspinous regions L and R of L2-L5. No discoloration, bruising, or rash are noted and area is normothermic to touch. [facility] discusses using cold packs and moist heat as well as a topical analgesic to help w/ the pain. [facility] contacts [facility] and discusses the above. After confirming no known kidney issues, GI bleeds, or anticoagulation and reconfirming allergies, [facility] orders 15mg toradol IM and recommends pt contact her PCP. [facility] administers 15mg toradol in the R deltoid using aseptic technique. Red flag warning signs are discussed w/ the pt and she thanks [facility] for coming. [facility] is clear. Report completed by FAVIO Ellington [id number]. [facility] Medication Orders: ketorolac 30 mg/mL injection solution: Administered Comment: R deltoid ...................... ...................... ...................... ...................... ...................... ...................... ......... [facility] Consulted: Triston Loja ...................... ...................... ...................... ...................... ...................... ...................... ......... Disposition: Fulfilled TRISTON LOJA NP, S [address] [facility],[address], [place], [address], ARIELLE CHRISTIANSEN 10/26/2024 18:18:44 11/22/2024 text/html CRC [...] ...................... ...................... ...................... ...................... ...................... ...................... ......... Surgical Services Manager Note From Gunnar Cobb: Arrived to find [...] VS as noted. No red flag symptoms. [facility] contacted advised 30mg toradol IM. 30mg toradol given in right deltoid without incident. Patient in agreement with plan. ...................... ...................... ...................... ...................... ...................... ...................... ......... [facility] Consulted: Fawn Coelho ...................... ...................... ...................... ...................... ...................... ...................... ......... Disposition: Fulfilled Fawn Coelho MD [address] [facility],[address], [place], [address], [email or web address] 11/22/2024 11:55:19 OBGyn Episode No OBEpisode recorded.
--- OUTSIDE RECORDS SUMMARY | 2025-01-23 19:01 | XMS_ITS | Encounter Summary ---
Author Organization [email or web address] Address [address] [place] [address] 7 [place] [address] Care Team Providers Care Fixture Maker Name Role Phone Maddie Kim MD Primary Care Provider [phone] Encounter Details Date Type Department Care Team (Late Contact Info) Description 11/14/2022 Orders Only [facility] [address] [place] [address] Maddie Kim MD [address] [place] [address] [phone] Social History Tobacco Use Types Packs/Day Years [...] Description 03/27/2025 1:30 PM EST Office Visit [facility] [address] [place] [address] Maddie Kim MD [address] [place] [address] [phone] documented as of this encounter Visit Diagnoses Not on filedocumented in this encounter Additional Health Concerns Assessment Noted Time PHQ-9 Depression Total Score: 0 05/30/19 23 3:26 PM EDT documented as of this encounter Care Teams Fixture Maker Relationship Specialty Start Date End Date Maddie Kim MD [address] [place] [address] PCP - General Family Medicine 07/12/20 [facility] 01/17/22 01/05/25 [facility] 12/25/24 documented as of this encounter
--- OUTSIDE RECORDS SUMMARY | 2025-01-23 19:01 | XMS_ITS | Encounter Summary ---
Author Organization [employer] Address [address] [place] [address] [address] [place] [address] Care Team Providers Care Scale Installer Name Role Phone Maddie Kim MD Primary Care Provider Encounter Details Date Type Department Care Team ([facility] Contact Info) Description 12/24/2024 Orders Only [facility] [address] [place], [place] [phone] Maddie Kim MD [address] [place] [address] Social History Tobacco Use Types Packs/Day Years [...] Description 03/27/2025 1:30 PM EST Office Visit [facility] [address] [place] [address] Maddie Kim MD [address] [place] [phone] documented as of this encounter Visit Diagnoses Not on filedocumented in this encounter Additional Health Concerns Assessment Noted Time PHQ-9 Depression Total Score: 9 07/05/19 25 6:48 AM EDT documented as of this encounter Care Teams Scale Installer Relationship Specialty Start Date End Date Maddie Kim MD [address] [place] [address] PCP - General Family Medicine 07/12/20 [facility] 01/17/22 01/05/25 [facility] 12/25/24 documented as of this encounter
--- OUTSIDE RECORDS SUMMARY | 2025-01-23 19:01 | XMS_ITS | Encounter Summary ---
Author Organization [employer] Address [address] [place] [address] [address] [place] [address] Care Team Providers Care Manager Ct Name Role Phone Maddie Kim MD Primary Care Provider [phone] Encounter Details Date Type Department Care Team ([facility] [address] Contact Info) Description 08/10/[address] [facility] [address] [place], [place] [phone] Maddie Kim MD [address] [place], [place] [phone] Social History Tobacco Use Types Packs/Day Years [...] Description 03/27/2025 1:30 PM EST Office Visit [facility] [address] [place] [address] Maddie Kim MD [address] [place] [address] documented as of this encounter Visit Diagnoses Not on filedocumented in this encounter Additional Health Concerns Assessment Noted Time PHQ-9 Depression Total Score: 9 07/05/19 25 6:48 AM EDT documented as of this encounter Care Teams Manager Ct Relationship Specialty Start Date End Date Maddie Kim MD [address] [place] [address] PCP - General Family Medicine 07/12/20 [facility] 01/17/22 01/05/25 [facility] 12/25/24 documented as of this encounter
--- OUTSIDE RECORDS SUMMARY | 2025-01-23 19:01 | XMS_ITS | Encounter Summary ---
Author Organization [employer] Address [address] [place] [address] 7 [place] [address] Care Team Providers Care Eap Specialist Name Role Phone Maddie Kim MD Primary Care Provider [phone] Reason for Visit * Reason Onset Date Comments Nutrition Medication Question 05/30/2023 Encounter Details Date Type Department Care Team ([facility] Contact Info) Description 05/30/2023 Telephone [facility] MEDICINE [address], [place] [phone] Maddie Kim MD [address] [place], [place] [phone] Nutrition Medication Question Social History Tobacco Use [...] Description 03/27/2025 1:30 PM EST Office Visit [facility] MEDICINE [address] [place] [address] Maddie Kim MD [address] [place] [address] documented as of this encounter Visit Diagnoses Not on filedocumented in this encounter Additional Health Concerns Assessment Noted Time PHQ-9 Depression Total Score: 0 05/30/19 23 3:26 PM EDT documented as of this encounter Care Teams Eap Specialist Relationship Specialty Start Date End Date Maddie Kim MD [address] [place] [address] PCP - General Family Medicine 07/12/20 Willie Gage 01/17/22 01/05/25 [facility] 12/25/24 documented as of this encounter
--- OUTSIDE RECORDS SUMMARY | 2025-01-23 19:01 | XMS_ITS | Encounter Summary ---
Author Organization [employer] Address [address] [place] [address] 7t [place] [address] Care Team Providers Care Certifed Refrigeration Operator Name Role Phone Maddie Kim MD Primary Care Provider [phone] Reason for Visit * Reason Comments Med Refill Encounter Details Date Type Department Care Team ([facility] st Contact Info) Description 12/25/2024 Refill [facility] MEDICINE [address] [place], [place] [phone] Maddie Kim MD [address] [place], [place] [phone] Social History Tobacco Use Types Packs/Day Years [...] Visit [facility] MEDICINE [address] [place] [phone] Maddie Kim MD [address] [place] [address] documented as of this encounter Visit Diagnoses Not on filedocumented in this encounter Additional Health Concerns Assessment Noted Time PHQ-9 Depression Total Score: 9 07/05/19 25 6:48 AM EDT documented as of this encounter Care Teams Certifed Refrigeration Operator Relationship Specialty Start Date End Date Maddie Kim MD [address] [place] [phone] PCP - General Family Medicine 07/12/20 [facility] 01/17/22 01/05/25 [facility] 12/25/24 documented as of this encounter
--- OUTSIDE RECORDS SUMMARY | 2025-01-23 19:01 | XMS_ITS | Continuity of Care Document ---
Author Organization [facility] Address [address] [place] [address] Care Team Providers Care Application Integrator Name Role Phone JEAN-PIERRE MASON Primary Care Provider [phone] Assessment Encounter Date Assessment Date Assessment LastModified [...] By Organization Details Last Modified Time 11/06/2024 [id number] 3 weeks of Left Knee PROM motion: flexion: passive motion, left (125 degrees) Not available Not available Not available 3 weeks of Left Knee PROM motion: extension: passive motion, left (0 degrees) Not available Not available Not available assistant terminal manager goal of Left Knee Strength (normal) strength: knees: flexion: left 5 (0-5) Not available Not available Not available assistant terminal manager goal of Left Knee Strength (normal) strength: knees: extension: left 5 (0-5) Not available Not available Not available 3 weeks of Overall ADL's WFL Not available Not available Not available care home goal of Overall ADL's unlimited Not available Not available Not available assistant terminal manager goal of Squatting performs without symptoms Not available Not available Not available 3 weeks of Gait and Stance: on level surfaces Not available Not available Not available care home goal of Gait and Stance: ambulates with no assitive devices Not available Not available Not available 3 weeks of Stairs step-to pattern Not available Not available Not available 3 weeks of Pain <2-3/10 Not available Not available Not available assistant terminal manager goal of Pain 0/10 Not available Not available Not available care home goal of Stair climbing (ascending and descending stairs) reciprocally Not available Not available Not available Patient InstructionsNo instructions recorded. Reason for Referral None Reported. Problems Name Problem SNOMED Code Status Onset Date Resolution Date Notes Provider Name and Address Organization Details Recorded Time No complaints 502602479 Active Status : 'I'; Not Available [facility] 4 09:21:06 Mass of joint of left wrist 1679093965643 9101 Active 2023 Cammy Ovalle, OTR/L,CHT [address], [place], [address] , [facility] 4 09:39:49 Fracture of ankle 07225513 Active 2023 KIM brunson [facility] 4 15:14:42 Postoperat laurence pain 887402253 Active 2024 Huma Augustin APRN [address], [place], [address] , [facility] 5 10:10:16 Problem Notes None recorded. Procedures Surgical History Date Name Laterality Status Provider Name and Address Organization Details Recorded Time 11/07/19 33937 Therapeutic Exercise (1:1) completed Julian Vera, PT [address], [place], [address], [facility] 11/09/2024 19:58:43 11/07/19 44935: Manual therapy completed Julian Vera, PT [address], [place], [address], [facility] 11/09/2024 19:58:43 10/25/19 38437 Therapeutic Exercise (1:1) completed Julian Vera, PT [address], [place], [address], [facility] 10/25/2024 23:06:22 10/25/19 74861: Manual therapy completed Julian Vera, PT [address], [place], [address], [facility] 10/25/2024 23:06:43 10/16/19 23875 Therapeutic Exercise (1:1) completed Krystina Galo, FAIRING MAN [address], [place], [address], [facility] 10/16/2024 16:15:04 10/16/19 53419: Hot or Cold Pack completed Krystina Galo, FAIRING MAN [address], [place], [address], [facility] 10/16/2024 16:15:20 10/11/19 05219 Therapeutic Exercise (1:1) completed Julian Vera, PT [address], [place], [address], [facility] 10/14/2024 07:11:36 10/11/19 21939: Low complexity PT Eval completed Julian Vera, PT [address], [place], [address], [facility] 10/14/2024 07:11:39 07/09/19 19405 Therapeutic Exercise (1:1) completed aN Gonzalez, FAIRING MAN [address], [place], [address], [facility] 07/09/2024 21:36:12 07/09/19 59479: Neuromuscular Re-Education completed Na Gonzalez, FAIRING MAN [address], [place], [address], [facility] 07/09/2024 21:40:29 07/04/19 06764: Therapeutic Activities (1:1) cancelled Hector Sams, PT [address], [place], [address], [facility] 07/02/2024 05:38:15 07/04/19 17396 Therapeutic Exercise (1:1) cancelled Hector Pyser, PT [address], [place], [address], [facility] 07/02/2024 05:38:15 07/04/19 31019: Manual therapy cancelled Hector Pyser, PT [address], [place], [address], [facility] 07/02/2024 05:38:15 07/01/19 28755: Therapeutic Activities (1:1) completed Hector Pyser, PT [address], [place], [address], [facility] 06/30/2024 10:41:35 07/01/19 32259 Therapeutic Exercise (1:1) completed Hector Pyser, PT [address], [place], [address], [facility] 06/30/2024 11:06:28 07/01/19 94037: Manual therapy completed Hector Pyser, PT [address], [place], [address], [facility] 06/30/2024 11:06:16 06/28/19 05095: Therapeutic Activities (1:1) cancelled Hector Pyser, PT [address], [place], [address], [facility] 06/26/2024 12:47:26 06/28/19 20838 Therapeutic Exercise (1:1) cancelled Hector Pyser, PT [address], [place], [address], [facility] 06/26/2024 12:47:26 06/28/19 41513: Manual therapy cancelled Hector Pyser, PT [address], [place], [address], [facility] 06/26/2024 12:47:26 06/25/19 79537: Therapeutic Activities (1:1) cancelled Hector Pyser, PT [address], [place], [address], [facility] 06/23/2024 16:32:14 06/25/19 08226 Therapeutic Exercise (1:1) cancelled Hector Pyser, PT [address], [place], [address], [facility] 06/23/2024 16:32:14 06/25/19 71834: Manual therapy cancelled Hector Pyser, PT [address], [place], [address], [facility] 06/23/2024 16:32:14 06/19/19 32308: Therapeutic Activities (1:1) completed Na Gonzalez, FAIRING MAN [address], [place], [address], [facility] 06/18/2024 15:01:55 06/19/19 07539 Therapeutic Exercise (1:1) completed Na Gonzalez, FAIRING MAN [address], [place], [address], [facility] 06/18/2024 15:01:55 06/19/19 95444: Manual therapy completed Na Gonzalez, FAIRING MAN [address], [place], [address], [facility] 06/18/2024 15:01:55 06/13/19 41136: Therapeutic Activities (1:1) completed Na Gonzalez, FAIRING MAN [address], [place], [address], [facility] 06/13/2024 07:27:56 06/13/19 85946 Therapeutic Exercise (1:1) completed Na Gonzalez, FAIRING MAN [address], [place], [address], [facility] 06/13/2024 07:27:26 06/13/19 62473: Manual therapy completed Na Gonzalez, FAIRING MAN [address], [place], [address], [facility] 06/13/2024 07:27:52 06/10/19 38474 Therapeutic Exercise (1:1) completed Hector Pyser, PT [address], [place], [address], [facility] 05/31/2024 14:22:51 06/10/19 19195: Low complexity PT Eval completed Hector Pyser, PT [address], [place], [address], [facility] 05/31/2024 14:22:53 05/01/19 52373 Therapeutic Exercise (1:1) completed Hector Pyser, PT [address], [place], [address], [facility] 04/29/2024 14:50:39 05/01/19 42895: Low complexity PT Eval completed Hector Pyser, PT [address], [place], [address], [facility] 04/29/2024 14:50:41 12/04/19 24 Sports Knee 4&1 completed Juancarlos Iyer PA-C [address], [place], [address], [facility] 12/04/2023 11:27:50 06/08/19 24 Splint_Short Arm Fiberglass_11+ completed JUNI SHELTON [facility] 06/08/2023 13:25:25 Imaging Results None recorded. Procedure Notes None recorded. Medical Equipment None Reported. Allergies Allergen ID Allergen Name Allergen Category Reaction Reaction Severity Criticality Documentation Date Start Date Code Code System Note Provider Name and Address Organization Details Recorded Time 223944 penicilli n G benzathin e medicatio n Not available Not available Not available 04/23/20232012 7982 RxNorm GOMEZ brunson [facility] 13:22:51 245636 Dilaudid medicatio n Not available Not available Not available 04/23/20232012 64623 3 RxNorm GOMEZ LAMA [facility] [place] [facility] 4 13:22:48 148916 Bactrim medicatio n Not available Not available Not available 04/23/20232020 95818 9 RxNorm JACKIE CISNEROS [facility] [place] [facility] [place] 5 14:12:53 [...] Kidney/Bladder Problems N Anemia N Heart Attack ([place]) N Cholesterol N Diabetes N Bleeding Disorder [...] ICD10 Code Diagnosis IMO Codes Diagnosis Note [id number] Julian De Los Santosonso, PT [facility] [address] [place] [address] 10/10/2024 15:00:25 10/10/2024 16:11:43 Pain of left knee joint 5519036583 97175 M25.562 [id number] Krystina Clover, FAIRING MAN [facility] [address] [place] [address] 10/15/2024 15:18:59 10/15/2024 15:59:03 Pain of left knee joint 0496603754 59935 M25.562 026341 [id number] Julian Vera, PT [facility] [address] [place] [address] 10/24/2024 15:07:10 10/24/2024 16:05:18 Pain of left knee joint 0557396636 69409 M25.562 451516 [id number] Julian Vera, PT [facility] [address] [place] [address] 11/06/2024 15:04:33 11/06/2024 16:31:36 Pain of left knee joint 4819229008 20239 M25.562 987689 Health Concerns Section Related Observation LastModified by Organization Detai ls LastModified Time None Recorded Concern Status LastModified by Organization Details LastModified Time None Recorded Payers Encounter Date Sequence Insurance Name Policy Number Policy Fernandez Covered Member ID Fernandez Member ID Guarantor Name 11/06/2024 1 [facility] - DOS ON OR AFTER 2022 - ONE CARE (MEDICARE REPLACEMENT/ADV ANTAGE - HMO) Atiya Dotson [id number] Atiya Dotson Notes Date Note Type Note Provider Name and Address Organization Details Recorded Time 11/06/2024 text/html Pt states L knee not really painful anymore though still has buckling episodes. Julian Vera, PT [address], [place], [address], [facility] 11/09/2024 20:04:58 OBGyn Episode No OBEpisode recorded.
--- OUTSIDE RECORDS SUMMARY | 2025-01-23 19:01 | XMS_ITS | Encounter Summary ---
Author Organization [employer] Address [address] [place] [address] 7 [place] [address] Care Team Providers Care Drawer In Dobby Loom Name Role Phone Maddie Kim MD Primary Care Provider [phone] Reason for Visit * Reason Onset Date Comments c/b request 11/10/2022 Encounter Details Date Type Department Care Team ([facility] Contact Info) Description 11/10/2022 Telephone [facility] MEDICINE [address] [place] [address] [phone] Maddie Kim MD [address] [place], [place] [phone] c/b request Social History Tobacco Use Types [...] to medication reconciliation. Please contact [employer] at [phone] documented in this encounter Plan of Treatment Upcoming Encounters Date Type Department Care Team (Late st Contact Info) Description 03/27/2025 1:30 PM EST Office Visit [facility] MEDICINE [address] [place] [address] Maddie Kim MD [address] [place] [phone] documented as of this encounter Visit Diagnoses Diagnosis Gastroesophageal reflux disease without esophagitis Esophageal reflux documented in this encounter Additional Health Concerns Assessment Noted Time PHQ-9 Depression Total Score: 0 05/30/19 23 3:26 PM EDT documented as of this encounter Care Teams Drawer In Dobby Loom Relationship Specialty Start Date End Date Maddie Kim MD [address] [place] [phone] PCP - General Family Medicine 07/12/20 Willie Gage 01/17/22 01/05/25 [facility] 12/25/24 documented as of this encounter
--- OUTSIDE RECORDS SUMMARY | 2025-01-23 19:01 | XMS_ITS | Encounter Summary ---
Author Organization [employer] Address [address] [place] [address] 7t [place] [address] Care Team Providers Care Fitness Worker Name Role Phone Maddie Kim MD Primary Care Provider [phone] Encounter Details Date Type Department Care Team ([facility] st Contact Info) Description 06/13/2023 Orders Only [facility] MEDICINE [address] [place], [place] [phone] Maddie Kim MD [address] [place], [place] [phone] Social History Tobacco Use Types Packs/Day Years [...] 1:30 PM EST Office Visit [facility] MEDICINE [address] [place] [address] Maddie Kim MD [address] [place] [address] documented as of this encounter Visit Diagnoses Not on filedocumented in this encounter Additional Health Concerns Assessment Noted Time PHQ-9 Depression Total Score: 0 05/30/19 23 3:26 PM EDT documented as of this encounter Care Teams Fitness Worker Relationship Specialty Start Date End Date Maddie Kim MD [address] [place] [address] PCP - General Family Medicine 07/12/20 [facility] 01/17/22 01/05/25 [facility] 12/25/24 documented as of this encounter
--- OUTSIDE RECORDS SUMMARY | 2025-01-23 19:01 | XMS_ITS | Encounter Summary ---
Author Organization [employer] Address [address] [place] [address] 7t [place] [address] Care Team Providers Care Railcar Switcher Name Role Phone Maddie Kim MD Primary Care Provider [phone] Encounter Details Date Type Department Care Team ([facility] st Contact Info) Description 02/22/2024 Orders Only [facility] MEDICINE [address] [place], [place] [phone] Maddie Kim MD [address] [place], [place] [phone] Social History Tobacco Use Types Packs/Day Years [...] Description 03/27/2025 1:30 PM EST Office Visit [facility] [address] [place] [address] Maddie Kim MD [address] [place] [address] documented as of this encounter Visit Diagnoses Not on filedocumented in this encounter Additional Health Concerns Assessment Noted Time PHQ-9 Depression Total Score: 3 06/15/19 24 11:48 AM EDT documented as of this encounter Care Teams Railcar Switcher Relationship Specialty Start Date End Date Maddie Kim MD [address] [place] [address] PCP - General Family Medicine 07/12/20 Willie Gage 01/17/22 01/05/25 [facility] 12/25/24 documented as of this encounter
--- OUTSIDE RECORDS SUMMARY | 2025-01-23 19:01 | XMS_ITS | Clinical Summary ---
Author Organization [employer] Address [address] [place] [address] 7[address] [place] [address] Care Team Providers Care Editor Name Role Phone Maddie Kim MD Primary Care Provider [phone] Allergies Active Allergy Reactions Criticality Noted Date [...] capsuleIndication s:Bipolar disorder with severe sonya (CMS/HCC) ([facility]) 025 Active traZODone (Desyrel) 100 MG tabletIndications :Bipolar disorder with severe sonya (CMS/HCC) ([facility]) 025 Active Tirzepatide-Weigh t Management (Zepbound) 12.5 [...] every 6 (six) hours. 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 She was using [facility], but they cannot come before her work day at 8am. Please write order for mushroom growth media mixer in the morning between 7 and [address] [facility] Assessment & Plan (10/06/2022 7:54 AM [...] re-iterated that she can reach us through [employer] if she needs anything Assessment & Plan [...] pcn,dilaudid Alcohol use disorder, modera te, dependence ([facility]/HCC) 09/06/2020 02/20/2023 Assessment & Plan (10/06/2022 [...] sleeve? I think discuss portion sizes with landscape technician Assessment & Plan (01/29/2022 10:40 AM EST): [...] Encounters Date Type Department Care Team Description 01/23/2025 Telephone [facility] [address] [place] [address] Maddie Kim MD Nurse Triage 01/18/2025 Refill [facility] [address] [place], [place] [phone] Maddie Kim MD Chronic midline low back pain without sciatica 01/18/2025 Refill [facility] [address] [place], [place] [phone] Maddie Kim MD 01/14/2025 Refill [facility] [address] [place] [phone] Maddie Kim MD Chronic midline low back pain without sciatica 01/13/2025 Telephone [facility] [address] [place] [phone] Maddie Kim MD Prior Authorization (PA: Christy) 01/06/2025 Results Follow-Up [facility] [address] [place] [phone] Abdomen Pelvis w/ Contrast 01/06/2025 Orders Only GENERIC EXTERNAL DATA DEPARTMENT Provider, Generic External Data 01/06/[address] [address] Maddie Kim MD Nurse Triage 12/31/2024 3:45 PM EST Office Visit [facility] [address] [place] [phone] Maddie Kim MD Benign hypertension (Primary Dx); Encounter for immunization; Encounter for vaccination; Bipolar disorder with severe sonya (CMS/HCC) (HCC); Chronic bilateral low back pain without sciatica; Chronic pain of both knees; Herniated lumbar intervertebral disc; Class 2 obesity; External hemorrhoid 12/31/2024 Travel 12/30/2024 Telephone [facility] [address] [place] [phone] Maddie Kim MD Chart Prep 12/25/2024 Refill [facility] [address] [place] [phone] Maddie Kim MD Chronic midline low back pain without sciatica; Vitamin D deficiency 12/25/2024 Refill [facility] [address] [place] [phone] Maddie Kim MD 12/24/2024 Orders Only [facility] [address] [place] [phone] Maddie Kim MD 12/24/2024 Refill [facility] [address] [place] [phone] Maddie Kim MD 12/23/2024 Patient Outreach [address] [address] Maddie Kim MD Pre-visit Planning ([facility] screening was completed on 09/08/2024) 12/22/[address] [address] Maddie Kim MD 12/11/[address] [address] Kathie Mclean, MAJO NTTS f/up 12/10/2024 Orders Only GENERIC EXTERNAL DATA DEPARTMENT Provider, Generic External Data 11/21/2024 Orders Only [address] [address] Maddie Kim MD 11/21/[address] [address] Maddie Kim MD Med Refill 11/04/[address] [address] Maddie Kim MD Med Refill 10/29/[address] [address] Maddie Kim MD 10/24/[address] [address] Maddie Kim MD Med Refill from Last [...] Office Visit [facility] [address] [place] [address] Maddie Kim MD [address] [place] [address] Health Maintenance Due Date Last Done Comments [...] PM EST Narrative 01/06/2025 3:33 PM EST [address] [address] [address] Scan Report Signed Patient: Atiya Dotson MR#: [id number] : 1975 Acct:[id number] Age/Sex: 49 / F ADM Date: 01/06/25 Loc: HO.ED Attending Dr: Ordering Physician: Nieves Manrique NP Date of Service: 01/06/25 Procedure(s): CT abdomen pelvis w IV con Accession Number(s): [id number] cc: Maddie Kim; Nieves Manrique NP Report Number: [id number]: Total DLP = 630.00 mGy-cm Reason for [...] by: Roddy Gandhi MD 01/06/2025 03:30 PM [facility] Dictated By: Roddy Bernardo MD Signed By: <Electronically signed by Roddy Phillips MD in OV> 01/06/25 1530 DD/ 1511 TD/TT: 01/06/25 1519 Tire Stripper: Procedure Note Donotuseinterpreter, Image - 01/06/[address] [address] [address] Scan Report Signed Patient: Zain Dotson#: [id number] : 1975Acct:[id number] Age/Sex: 49 / FADM Date: 01/06/25 Loc: HO.ED Attending Dr: Ordering Physician: Nieves Manrique NP Date of Service: 01/06/25 Procedure(s): CT abdomen pelvis w IV con Accession Number(s): [id number] cc: Maddie Kim; Nieves Manrique NP Report Number: [id number]: Total DLP = 630.00 mGy-cm Reason for [...] Roddy Gandhi MD 01/06/2025 03:30 PM EST RP Dictated By: Roddy Bernardo MD Signed By: <Electronically signed by Roddy Phillips MDin OV> 01/06/25 1530 DD/ 1511 TD/TT: 01/06/25 1519 Tire Stripper: [facility] External Provider IMG CT PROCEDURES Final Result * XR KUB and Upright 2 Views (01/06/2025 11:16 AM EST) Anatomical Region Laterality Modality Radiographic Celeste ging 01/06/2025 11:1 6 AM EST Narrative 01/06/2025 11:29 AM EST [place] [address] XRay Report Signed Patient: Atiya Dotson MR#: [id number] : 1975 Acct:[id number] Age/Sex: 49 / F ADM Date: 01/06/25 Loc: HO.ED Attending Dr: Ordering Physician: Aurea Brandt Date of Service: 01/06/25 Procedure(s): XR KUB Accession Number(s): [id number] cc: Maddie Kim; Aurea Brandt Reason for [...] 01/06/25 1126 DD/ 1116 TD/TT: 01/06/25 1121 Tire Stripper: Procedure Note Donotuseinterpreter, Image - 01/06/2025 [place] [address] XRay Report Signed Patient: Zain Dotson#: [id number] : 1975Acct:[id number] Age/Sex: 49 / FADM Date: 01/06/25 Loc: HO.ED Attending Dr: Ordering Physician: Aurea Brandt Date of Service: 01/06/25 Procedure(s): XR KUB Accession Number(s): [id number] cc: Maddie Kim; Aurea Brandt Reason for [...] Bernardo MD Signed By: <Electronically signed by Rubia Agosto OV> 01/06/25 1126 DD/ 1116 TD/TT: 01/06/25 1121 Tire Stripper: [facility] External Provider IMG XR PROCEDURES Final Result * High Sensitivity Troponin I (01/06/2025 11:06 AM EST) [facility] TROPONIN I HIGH SENSITIVITY <2.7 <3.5 - 17.0 ng/L [facility] Comment:The العلي high sens itivity Troponin-I results should beused in conjunction with other diagnostic information suchas ECG, clinical observations and information, and patientsymptoms to aid in the diagnosis of NM. 01/06/2025 11:0 6 AM EST 01/06/2025 11:12 AM EST Generic External Data Provider LAB BLOOD ORDERAB LES Final Result [facility] [address] [place] [phone] * (ABNORMAL) CBC auto differential (01/06/2025 11:06 AM EST) Only the most recent of2 resultswithin the time period is included. [facility] White Blood Count 5.6 4.8 - 10.8 X10*3/uL [facility] Red Blood Count 4.49 4.20 - 5.50 X10*6/uL [facility] Hemoglobin 11.1(L) 12.0 - 16.0 g/dl [facility] Hematocrit 35.2(L) 37.0 - 47.0 % [facility] Mean Corpuscular Volume 78.4(L) 80.0 - 98.0 fL [facility] Mean Corpuscular Hemoglobin 24.7(L) 27.0 - 33.0 pg [facility] Mean Corpuscular HGB Conc 31.5 31.0 - 35.0 g/dl [facility] Red Cell Distribution Width 12.5 11.0 - 16.0 % [facility] Platelet Count 251 160 - 400 X10*3/uL [facility] Mean Platelet Volume 9.8 9.4 - 12.3 fL [facility] Neutrophils Percent Auto 60.6 45 - 73 % [facility] Imm Gran Pct Auto 0.2 0.0 - 0.4 % [facility] Lymphocytes Percent Auto 29.9 20 - 40 % [facility] Monocytes Percent Auto 6.3 2 - 11 % [facility] Eosinophils Percent Auto 2.5 0 - 4 % [facility] Basophils Percent Auto 0.5 0 - 2 % [facility] NRBC Pct Auto 0.0 0.0 - 0.2 /100WBC [facility] Neutrophils Absolute Auto 3.4 2.0 - 8.3 x10*3/uL [facility] Imm Gran Abs Auto 0.01 0.00 - 0.03 X10*3/uL [facility] Lymphocytes Absolute Auto 1.7 1.2 - 4.9 X10*3/uL [facility] Monocytes Absolute Auto 0.4 0.1 - 1.2 X10*3/uL [facility] Eosinophils Absolute Auto 0.1 0.0 - 0.4 X10*3/uL [facility] Basophils Absolute Auto 0.0 0.0 - 0.2 X10*3/uL [facility] NRBC Abs Auto 0.000 0.0 - 0.012 X10*3/uL [facility] 01/06/2025 11:0 6 AM EST 01/06/2025 11:12 AM EST us Generic External Data Provider LAB BLOOD ORDERAB LES Final Result [facility] [address] [place] [phone] * hCG, Total, Quantitative (01/06/2025 11:06 AM EST) Pathologist [facility] HCG Quantitative <2 mIU/mL [facility] Comment:Weeks post LMP Appr oximate hCG(Last Menstrual Period) Range (mIU/ml)3 - 4 weeks 9 - 1304 - 5 weeks 75 - 2,6005 - 6 weeks 850 - 20,8006 - 7 weeks 4000 - 100,2007 - 12 weeks 11,500 - 289,28558 - 16 weeks 18,300 - 137,78078 - 29 weeks (2nd trimester) 1,400 - 53,73924 - 41 weeks (3rd trimester) 940 - [...] ORDERAB LES Final Result Performing Organization Address City/[facility]/ZIP Co de Phone Number [facility] [address] [place] [phone] * Magnesium (01/06/2025 11:06 AM EST) Pathologist [facility] Magnesium 2.1 1.6 - 2.6 mg/dL [facility] 01/06/2025 11:0 6 AM EST 01/06/2025 11:12 AM EST Generic External Data Provider LAB BLOOD ORDERAB LES Final Result Performing Organization Address [facility]/ZIP Co de Phone Number [facility] [address] [place] [phone] * Lipase (01/06/2025 11:06 AM EST) Pathologist [facility] Lipase 36 8 - 78 U/L [facility] 01/06/2025 11:0 6 AM EST 01/06/2025 11:12 AM EST Generic External Data Provider LAB BLOOD ORDERAB LES Final Result Performing Organization Address [facility] Co de Phone Number [facility] [address] [place] [phone] * Hepatic Function Panel (01/06/2025 11:06 AM EST) Bilirubin, Total 0.6 0.0 - 1.0 mg/dL [facility] Bilirubin, Direct 0.2 0.0 - 0.5 mg/dL [facility] Aspartate Amino Transferase 27 5 - 31 U/L [facility] Alanine Aminotransferase 28 0 - 31 U/L [facility] Total Protein 7.2 6.5 - 8.0 g/dL [facility] Albumin Level 4.5 3.5 - 5.0 g/dL [facility] Alkaline Phosphatase 85 39 - 117 U/L [facility] 01/06/2025 11:0 6 AM EST 01/06/2025 11:12 AM EST Generic External Data Provider LAB BLOOD ORDERAB LES Final Result Performing Organization Address [facility] de Phone Number [facility] [address] [place] [phone] * Basic Metabolic Panel (01/06/2025 11:06 AM EST) Sodium 136 135 - 145 mmol/L [facility] Potassium 4.1 3.3 - 5.1 mmol/L [facility] Chloride 101 96 - 108 mmol/L [facility] Carbon Dioxide 27 22 - 29 mmol/L [facility] Anion Gap 12 12 - 20 [facility] Urea Nitrogen (BUN) 16 9 - 16 mg/dL [facility] Creatinine, Serum 0.74 0.5 - 1.4 mg/dL [facility] Creatinine Clr Calc Pharmacy 90.9 [facility] Comment:Provided height and weight: 157.48 cm,78.018 kg.eGFR (calculated from the MDRD study equation) and eCrCl(calculated from the Cockcroft-Gault equation) are based ondifferent parameters and may not yield comparable results.If eCrCl result is absurd, please check patient'sheight/weight. Estimated Glomerular Filt Rate >60 [facility] Comment:Chronic Kidney Disea se: Estimated GFR < 60 mL/min/1.31q7Exhmst Kidney Disease: Estimated GFR < 15 mL/min/1.73m2 Glucose 79 60 - 115 mg/dL [facility] Calcium 9.7 8.4 - 10.2 mg/dL [facility] 01/06/2025 11:0 6 AM EST 01/06/2025 11:12 AM EST us Generic External Data Provider LAB BLOOD ORDERAB LES Final Result [facility] [address] [place] [phone] [phone] * Urinalysis, Complete, with Reflex to Culture (12/10/2024 2:54 AM EDT) Color Urine Yellow [facility] Appearance Urine Clear [facility] PH 6.5 5.0 - 9.0 [facility] Glucose Urine UA Negative Negative mg/dL [facility] Urine Blood Negative Negative [facility] Specific [place] - Urine <=1.005 1.005 - 1.025 [facility] Urine Protein Negative Neg-Trace mg/dL [facility] Urine Ketones Negative Negative mg/dL [facility] Nitrite Urine Negative Negative [facility] Leukocyte Esterase Urine Negative Negative [facility] RBC Urine 0-2 0 - 2 /HPF [facility] Urine WBC 0-5 0 - 5 /HPF [facility] Urine Squamous Epithelial Cell 0-2 0 - 2 /HPF [facility] Urine Bacteria None Seen None Seen [facility] Hyaline Casts, Urine 0-2 0 - 2 /LPF [facility] 12/10/2024 2:54 AM EDT 12/10/2024 3:00 AM EDT Narrative [facility] - 12/10/2024 3:21 AM EDT [id number], Clean Catch us Generic External Data Provider LAB URINE ORDERAB LES Final Result [facility] [address] [place] [phone] [phone] * (ABNORMAL) Drug Monitoring, Panel 1, Screen, Urine (12/10/2024 2:54 AM EDT) Opiate Screen Urine Not Detected Not Detect [facility] Comment:Opiate cut-off is 30 0 ng/mL.Positive results are unconfirmed and should not be used fornon-medical purposes. Barbiturates, Urine Not Detected Not Detect [facility] Comment:Barbiturate cut-off is 200 ng/mL.Positive results are unconfirmed and should not be used fornon-medical purposes. Phencyclidine Screen Urine Not Detected Not Detect [facility] Comment:Phencyclidine cut-of f is 25 ng/mL.Positive results are unconfirmed and should not be used fornon-medical purposes. Amphetamine Screen Urine Not Detected Not Detect [facility] Comment:Amphetamine cut-off is 1000 ng/mL.Positive results are unconfirmed and should not be used fornon-medical purposes. Benzodiazepines Screen Urine Not Detected Not Detect [facility] Comment:Benzodiazepine cut-o ff is 200 ng/mL.Positive results are unconfirmed and should not be used fornon-medical purposes. Cocaine Screen Urine Not Detected Not Detect [facility] Comment:Cocaine cut-off is 3 00 ng/mL.Positive results are unconfirmed and should not be used fornon-medical purposes. Cannabinoid Screen Urine POSITIVE(A) Not Detect [facility] Comment:Cannabinoid cut-off is 50 ng/mL.Positive results are unconfirmed and should not be used fornon-medical purposes. Methadone Screen, Urine Not Detected Not Detect ng/mL [facility] Comment:Methadone cut-off is 300 ng/mL.Positive results are unconfirmed and should not be used fornon-medical purposes. FENTANYL URINE Not Detected Not Detect [facility] Comment:Fentanyl cut-off is 1 ng/mL.Positive results are unconfirmed and should not be used fornon-medical purposes. Oxycodone Urine Screen Not Detected Not Detect ng/mL [facility] Comment:Oxycodone cut-off is 100 ng/mL.Positive results are unconfirmed and should not be used fornon-medical purposes. Buprenorphine Screen Not Detected Not Detect ng/mL [facility] Comment:Buprenorphine cut-of f is 5 ng/mL.Positive results are unconfirmed and should not be used fornon-medical purposes. 12/10/2024 2:54 AM EDT 12/10/2024 3:00 AM EDT us Generic External Data Provider LAB URINE ORDERAB LES Final Result [facility] [address] [place] [phone] * Pap Smear (01/22/2024 8:03 AM EST) 01/22/2024 8:03 AM EST 01/23/2024 11:00 AM EST Narrative [facility] - 01/25/2024 12:58 PM EST ----- ------- Name: Atiya Esparza Age/Sex: 48/F : 1975 Unit#: [id number] Attend Dr: John Schmidt MD Re01/22/24 Status: DEP [facility]ch[facility] ----- ------- SPEC : [id number] RECD: 01/23/24 STATUS: MEHRDAD GREGG NUM: [id number] MAMADOU: 01/22/24-802 [facility] DR: John Schmidt MD ENTERED: 01/23/24 [...] Received ThinPrep-Cervical Copies To: Maddie Kim [address] [place], [place] [phone] John Schmidt MD [facility] [address] [place] [address] ----- ------- Signed (signature on file) YASSINE Garcia (ASC) 01/25/24 1258 ----- ------- END OF REPORT us Generic External Data Provider LAB CYTOLOGY ORDE RABLES Final Result Performing Organization Address City/[facility]/ZIP Co de Phone Number [facility] [address] [place] [phone] * Lipid Panel, Standard (09/08/2023 8:43 AM EDT) Triglycerides 57 <150 mg/dL [facility] Comment:Desirable Triglyceri de: less than 150 mg/dLBorderline High Triglyceride 150-199 mg/dLHigh Triglyceride: 200-499 mg/dLVery High Triglyceride: greater than or equal to 5OO mg/dL Cholesterol 158 <200 mg/dL [facility] Comment:Desirable Cholestero l: less than 200 mg/dLBorderline High Cholesterol: 200-239 mg/dLHigh Cholesterol: greater than 239 mg/dL LDL Cholesterol Calculated 87 <100 mg/dL [facility] Comment:Desirable LDL: less than 100 mg/dLNear Optimal/Above Optimal LDL: 110- 129 mg/dLBorderline High LDL: 130-159 mg/dLHigh LDL: 160-189 mg/dLVery High LDL: greater than or equal to 190 mg/dL HDL Cholesterol 60 >40 mg/dL [facility] Comment:Desirable HDL: great er than 40 mg/dL Note: This HDL assay may give artificially low results in patients with liver disease. Blood Venous blood specimen / Unknown 09/08/2023 8:43 AM EDT 09/08/2023 11:09 AM EDT us Maddie Kim MD LAB BLOOD ORDERABLES Final Res ult Performing Organization Address City/[facility]/ZIP Co de Phone Number [facility] [address] [place] [phone] [phone] * BI Mammogram Screening Tomosynthesis Bilateral (05/04/2023 4:02 PM EDT) Anatomical Region Laterality Modality Breast Bilateral Mammography 05/04/2023 4:02 PM EDT Narrative 05/26/2023 3:06 PM EDT [facility] [address] [place] [address] Mammography Report Signed Patient: Atiya Esparza MR#: [id number] : 1975 Acct:[id number] Age/Sex: 47 / F ADM Date: 05/04/23 Loc: MIKE.MAMMO Attending Dr: Maddie Kim MD Ordering Physician: Maddie Kim Results: 1Negative Date of Service: 05/04/23 Follow Up: 1 Year From Orig ina Mammogram Procedure(s): MM tomosynthesis screening BI Accession Number(s): [id number] cc: Maddie Kim EXAMINATION: MM SCREENING DIGITAL [...] in OV> 05/26/23 1503 DD/ 1602 TD/TT: Tire Stripper: Procedure Note Donotuseinterpreter, Image - 05/26/2023 [place] [facility] [address] [place], [place] [address] Mammography Report Signed Patient: Zain Esparza#: [id number] : 1975Acct:[id number] Age/Sex: 47 / FADM Date: 05/04/23 Loc: MICHAEL Attending Dr: Maddie Kim MD Ordering Physician: Jaja Kimults: 1Negative Date of Service: 05/04/23Follow Up: 1 Year From Orig inal Mammogram Procedure(s): MM tomosynthesis screening BI Accession Number(s): [id number] cc: Maddie Kim EXAMINATION: MM SCREENING DIGITAL [...] in OV> 05/26/23 1503 DD/ 1602 TD/TT: Tire Stripper: us Maddie Kim MD IMG BI PROCEDURES Final Result * HPV GENOTYPES 16,18/45 (12/20/2020 12:00 AM EDT) HPV 16 RNA NOT DETECTED NOT DETECTED [facility] HPV 18/45 RNA NOT DETECTED NOT DETECTED [facility] Comment: Methodology: Family Day Care Worker Mediated Amplification The analytical performance characteristics of this assay have been determined by [employer] The modifications have not been cleared or approved by the FDA. This assay has been validated pursuant to the CLIA regulations and is used for clinical purposes. 12/20/2020 Maddie Kim MD LAB CYTOLOGY ORDERABLES Final Result [facility] [address] from Last 3 Months or Most Recently Relevant to Health Maintenance Insurance [facility] ONE CARE < 65 [place] [id number] Care Teams Editor Relationship Specialty Start Date End Date Maddie Kim MD [address] [place] [address] PCP - General Family Medicine 07/12/20 [facility] 12/25/24
--- OUTSIDE RECORDS SUMMARY | 2025-01-23 19:01 | XMS_ITS | Encounter Summary ---
Author Organization [employer] Address [address] [place] [address] 7 [place] [address] Care Team Providers Care Log Scaler Name Role Phone Maddie Kim MD Primary Care Provider [phone] Encounter Details Date Type Department Care Team ([facility] Contact Info) Description 07/05/2022 Orders Only [facility] [address] [place] [address] [phone] Maddie Kim MD [address] [place] [address] [phone] Social History Tobacco Use Types Packs/Day Years [...] Description 03/27/2025 1:30 PM EST Office Visit [facility] [address] [place] [address] [phone] Maddie Kim MD [address] [place] [address] [phone] documented as of this encounter Visit Diagnoses Not on filedocumented in this encounter Additional Health Concerns Assessment Noted Time PHQ-9 Depression Total Score: 0 05/30/19 23 3:26 PM EDT documented as of this encounter Care Teams Log Scaler Relationship Specialty Start Date End Date Maddie Kim MD [address] [place] [address] PCP - General Family Medicine 07/12/20 Willie Gage 01/17/22 01/05/25 [facility] 12/25/24 documented as of this encounter
--- OUTSIDE RECORDS SUMMARY | 2025-01-23 19:01 | XMS_ITS | Encounter Summary ---
Author Organization [employer] Address [address] [place] [address] 7 [place] [address] Care Team Providers Care National Secretary Name Role Phone Maddie Kim MD Primary Care Provider [phone] Reason for Visit * Reason Onset Date Comments Call Back Request 07/26/2023 Encounter Details Date Type Department Care Team ([facility] Contact Info) Description 07/26/2023 Telephone [facility]INE [address] [place] [address] Maddie Kim MD [address] [place], [place] [phone] Call Back Request Social History Tobacco Use [...] 07/27/2023 9:31 AM EDT Tc returned to [place], questioning pt.'s risperidone inj rx on med list they received. Looking back in chart, this was discontinued after inpatient hosp in 2020 due to noncompliance with injections. This was the last time it was prescribed. [place] is requesting this is taken off our med list for accuracy, thank you! * Telephone Encounter - Zach Carlson - 07/26/2023 4:12 PM EDT Tc from [place] with Willie Gage requesting a call back for a med reconciliation. Please contact Georgie at [phone]. documented in this encounter Plan of Treatment Upcoming Encounters Date Type Department Care Team (Late st Contact Info) Description 03/27/2025 1:30 PM EST Office Visit [facility]INE [address] [place] [address] Maddie Kim MD [address] [place], [place] [phone] documented as of this encounter Visit Diagnoses Not on filedocumented in this encounter Additional Health Concerns Assessment Noted Time PHQ-9 Depression Total Score: 3 06/15/19 24 11:48 AM EDT documented as of this encounter Care Teams National Secretary Relationship Specialty Start Date End Date Maddie Kim MD [address] [place] [address] PCP - General Family Medicine 07/12/20 Willie Gage 01/17/22 01/05/25 [facility] 12/25/24 documented as of this encounter
--- OUTSIDE RECORDS SUMMARY | 2025-01-23 19:01 | XMS_ITS | Encounter Summary ---
Author Organization [employer] Address [address] [place] [address] 7 [place] [address] Care Team Providers Care Inker Machine Name Role Phone Maddie Kim MD Primary Care Provider [phone] Encounter Details Date Type Department Care Team (Late Contact Info) Description 01/27/2022 Telephone [facility] MEDICINE [address] [place] [address] Maddie Kim MD [address] [place] [address] Social History Tobacco Use Types Packs/Day Years [...] 1:30 PM EST Office Visit [facility] MEDICINE [address] [place] [address] Maddie Kim MD [address] [place] [address] documented as of this encounter Visit Diagnoses Not on filedocumented in this encounter Care Teams Inker Machine Relationship Specialty Start Date End Date Maddie Kim MD [address] [place] [address] PCP - General Family Medicine 07/12/20 Willie Gage 01/17/22 01/05/25 [facility] 12/25/24 documented as of this encounter
--- OUTSIDE RECORDS SUMMARY | 2025-01-23 19:01 | XMS_ITS | Encounter Summary ---
Author Organization [employer] Address [address] [place] [address] 7 [place] [address] Care Team Providers Care Package Center Supervisor Name Role Phone Maddie Kim MD Primary Care Provider [phone] Reason for Visit * Reason Onset Date Comments FYI 02/15/2024 Encounter Details Date Type Department Care Team ([facility] Contact Info) Description 02/15/2024 Telephone [facility] MEDICINE 230 [place], [place] [phone] Maddie Kim MD 230 [place], [place] [phone] FY Social History Tobacco Use Types Packs/Day [...] any questions you can contact Lauren at [phone]. documented in this encounter Plan of Treatment Upcoming Encounters Date Type Department Care Team (Late st Contact Info) Description 03/27/2025 1:30 PM EST Office Visit [facility] MEDICINE [address] [place] [address] Maddie Kim MD [address] [place] [address] documented as of this encounter Visit Diagnoses Not on filedocumented in this encounter Additional Health Concerns Assessment Noted Time PHQ-9 Depression Total Score: 3 06/15/19 24 11:48 AM EDT documented as of this encounter Care Teams Package Center Supervisor Relationship Specialty Start Date End Date Maddie Kim MD [address] [place] [address] PCP - General Family Medicine 07/12/20 Willie Gage 01/17/22 01/05/25 [facility] 12/25/24 documented as of this encounter
--- OUTSIDE RECORDS SUMMARY | 2025-01-23 19:01 | XMS_ITS | Encounter Summary ---
Author Organization [employer] Address [address] [place] [address] 7 [place] [address] Care Team Providers Care Soa Architect Name Role Phone Maddie Kim MD Primary Care Provider [phone] Encounter Details Date Type Department Care Team ([facility] st Contact Info) Description 05/15/2023 Orders Only [facility] MEDICINE 230 [place], [place] [phone] Maddie Kim MD 230 [place], [place] [phone] Social History Tobacco Use Types Packs/Day Years [...] Description 03/27/2025 1:30 PM EST Office Visit [facility] MEDICINE [address] [place] [address] [phone] Maddie Kim MD [address] [place] [address] [phone] documented as of this encounter Visit Diagnoses Not on filedocumented in this encounter Additional Health Concerns Assessment Noted Time PHQ-9 Depression Total Score: 0 05/30/19 23 3:26 PM EDT documented as of this encounter Care Teams Soa Architect Relationship Specialty Start Date End Date Maddie Kim MD [address] [place] [address] [phone] PCP - General Family Medicine 07/12/20 Willie Gage 01/17/22 01/05/25 [facility] 12/25/24 documented as of this encounter
--- OUTSIDE RECORDS SUMMARY | 2025-01-23 19:01 | XMS_ITS | Encounter Summary ---
Author Organization [employer] Address [address] [place] [address] 7t [place] [address] Care Team Providers Care Machine Stacker Name Role Phone Maddie Kim MD Primary Care Provider [phone] Encounter Details Date Type Department Care Team ([facility] st Contact Info) Description 12/22/2024 Telephone [facility] MEDICINE 230 [place], [place] [phone] Maddie Kim MD 230 [place], [place] [phone] Social History Tobacco Use Types Packs/Day Years [...] [facility] [address] [place] [address] Maddie Kim MD 230 [place] [address] documented as of this encounter Visit Diagnoses Not on filedocumented in this encounter Additional Health Concerns Assessment Noted Time PHQ-9 Depression Total Score: 9 07/05/19 25 6:48 AM EDT documented as of this encounter Care Teams Machine Stacker Relationship Specialty Start Date End Date Maddie Kim MD [address] [place] [phone] PCP - General Family Medicine 07/12/20 Willie Gage 01/17/22 01/05/25 [facility] 12/25/24 documented as of this encounter
--- OUTSIDE RECORDS SUMMARY | 2025-01-23 19:01 | XMS_ITS | Encounter Summary ---
Author Organization [employer] Address [address] [place] [address] 7 [place] [address] Care Team Providers Care Global Marketing Coordinator Name Role Phone Maddie Kim MD Primary Care Provider [phone] Encounter Details Date Type Department Care Team ([facility] Contact Info) Description 04/11/2022 Abstract [facility] MEDICINE [address] [place] [address] [phone] Maddie Kim MD [address] [place] [address] [phone] Social History Tobacco Use Types Packs/Day Years [...] EST Office Visit [facility] MED[facility]INE [address] [place] [address] [phone] Maddie Kim MD [address] [place] [address] [phone] documented as of this encounter Visit Diagnoses Not on filedocumented in this encounter Care Teams Global Marketing Coordinator Relationship Specialty Start Date End Date Maddie Kim MD 230 [place] [address] PCP - General Family Medicine 07/12/20 Willie [facility] 01/17/22 01/05/25 [facility] 12/25/24 documented as of this encounter
--- OUTSIDE RECORDS SUMMARY | 2025-01-23 19:01 | XMS_ITS | Encounter Summary ---
Author Organization [employer] Address [address] [place] [address] 7 [place] [address] Care Team Providers Care Corporate Treasurer Name Role Phone Maddie Kim MD Primary Care Provider [phone] Reason for Visit * Reason Onset Date Comments Medication Question 08/01/2024 Encounter Details Date Type Department Care Team ([facility] Contact Info) Description 08/01/[address] [facility] MEDICINE 230 [place], [place] [phone] Maddie Kim MD 230 [place], [place] [phone] Medication Question Social History Tobacco Use Types [...] medication. Pt seen today 08/01 at the [facility], provider: Jayleen Mckeon. documented in this encounter Plan of Treatment Upcoming Encounters Date Type Department Care Team (Late st Contact Info) Description 03/27/2025 1:30 PM EST Office Visit [facility] MEDICINE 230 [place] [address] Maddie Kim MD 230 [place] [address] documented as of this encounter Visit Diagnoses Not on filedocumented in this encounter Additional Health Concerns Assessment Noted Time PHQ-9 Depression Total Score: 9 07/05/19 25 6:48 AM EDT documented as of this encounter Care Teams Corporate Treasurer Relationship Specialty Start Date End Date Maddie Kim MD 230 [place] [address] PCP - General Family Medicine 07/12/20 Willie Gage 01/17/22 01/05/25 [facility] 12/25/24 documented as of this encounter
--- OUTSIDE RECORDS SUMMARY | 2025-01-23 19:02 | XMS_ITS | Encounter Summary ---
Author Organization [employer] Address [address] [facility] 7t [place] [address] Care Team Providers Care Order Manager Name Role Phone Maddie Kim MD Primary Care Provider [phone] Reason for Visit * Reason Comments Med Refill Encounter Details Date Type Department Care Team ([facility] st Contact Info) Description 04/05/2023 Refill [facility] [address] [place] [address] [phone] Isac Gonzalez MD [address] [place] [address] [phone] Chronic bilateral low back pain without sciatica [...] - 04/06/2023 12:46 PM EST TC to [facility] pharmacy, T3 RX written 03/29/23 [...] Office Visit [facility] MEDICINE 230 [place] [address] Maddie Kim MD 230 [place] [address] documented as of this encounter Visit Diagnoses Diagnosis Chronic bilateral low back pain without sciatica documented in this encounter Additional Health Concerns Assessment Noted Time PHQ-9 Depression Total Score: 0 05/30/19 23 3:26 PM EDT documented as of this encounter Care Teams Order Manager Relationship Specialty Start Date End Date Maddie Kim MD 230 [place] [address] PCP - General Family Medicine 07/12/20 Willie Gage 01/17/22 01/05/25 [facility] 12/25/24 documented as of this encounter
--- OUTSIDE RECORDS SUMMARY | 2025-01-23 19:02 | XMS_ITS | Encounter Summary ---
Author Organization [employer] Address [address] [place] [address] 7 [place] [address] Care Team Providers Care Quarter Supervisor Name Role Phone Maddie Kim MD Primary Care Provider [phone] Reason for Visit * Reason Onset Date Comments Med Refill 09/19/2024 Encounter Details Date Type Department Care Team ([facility] Contact Info) Description 09/19/2024 Telephone [facility] MEDICINE 230 [place], [place] [phone] Maddie Kim MD 230 [place], [place] [phone] Med Refill Social History Tobacco Use Types [...] 1:38 PM EDT Medication was sent to [id number] on 08/27/24 with 2 refills patient can call pharmacy and transfer medication. * Telephone Encounter - Gil Metz - 09/19/2024 1:29 PM EDT TC from pt requesting medication refill. Medications needing refill : Tirzepatide-Weight Management (Zepbound) 10 MG/0.5ML solution auto-injector To be sent to: [facility] - [place], [place] - [address] documented in this encounter Plan of Treatment Upcoming Encounters Date Type Department Care Team (Late st Contact Info) Description 03/27/2025 1:30 PM EST Office Visit [facility] MEDICINE 230 [place] [address] Maddie Kim MD 230 [place] [address] documented as of this encounter Visit Diagnoses Not on filedocumented in this encounter Additional Health Concerns Assessment Noted Time PHQ-9 Depression Total Score: 9 07/05/19 25 6:48 AM EDT documented as of this encounter Care Teams Quarter Supervisor Relationship Specialty Start Date End Date Maddie Kim MD 230 [place] [address] PCP - General Family Medicine 07/12/20 Willie Gage 01/17/22 01/05/25 [facility] 12/25/24 documented as of this encounter
--- OUTSIDE RECORDS SUMMARY | 2025-01-23 19:02 | XMS_ITS | Encounter Summary ---
Author Organization [employer] Address [address] [place] [address] 7t [place] [address] Care Team Providers Care Cheesemaker Helper Name Role Phone Maddie Kim MD Primary Care Provider [phone] Encounter Details Date Type Department Care Team ([facility] st Contact Info) Description 04/14/2024 Orders Only [facility] MEDICINE 230 [place], [place] [phone] Maddie Kim MD 230 [place], [place] [phone] Social History Tobacco Use Types Packs/Day Years [...] Description 03/27/2025 1:30 PM EST Office Visit [facility] MEDICINE [address] [place], [place] [phone] Maddie Kim MD 230 [place], [place] [phone] documented as of this encounter Procedures Procedure [...] IMMUNOGLOBULIN G 1545 600 - 1640 mg/dL [facility] IMMUNOGLOBULIN A 197 47 - 310 mg/dL [facility] Immunoglobulin M 46(A) 50 - 300 mg/dL [facility] Comment:THIS TEST WAS PERFOR MED AT:[id number] [place] [phone] PARKINSON MD Immunofixation Result SEE NOTE [facility] Comment:Normal pattern. No m onoclonal proteins detected. 04/14/2024 12:4 7 PM EST 04/14/2024 12:47 PM EST [employer] External Data Provider LAB BLOOD ORDERAB LES Final Result Performing Organization Address [facility] de Phone Number [facility] [address] [place] [phone] * Cortisol Random (04/14/2024 12:47 PM EST) [facility] Cortisol Random 5.7 ug/dL [facility] Comment:Reference Range*: Be fore 10 am 6.2-19.4 ug/dL After 5 pm 2.3-11.9 ug/dL*Please interpret above results accordingly.This test was performed using the [employer] chemiluminescentmethod. Values obtained from different assay methods cannotbe used interchangeably.Patients receiving fludrocortisone, prednisolone orprednisone may show artificially elevated cortisol valuesdue to cross-reactivity. 04/14/2024 12:4 7 PM EST 04/14/2024 12:47 PM EST Generic External Data Provider LAB BLOOD ORDERAB LES Final Result Performing Organization Address [facility] Co de Phone Number [facility] [address] [place] [phone] * Ferritin (04/14/2024 12:47 PM EST) Pathologist [facility] Ferritin 61 10 - 250 ng/mL [facility] 04/14/2024 12:4 7 PM EST 04/14/2024 12:47 PM EST us Gil Brewer MD LAB BLOOD ORDERABLES Final Resul t Performing Organization Address [facility] Co de Phone Number [facility] [address] [place] [phone] * Iron And Total Iron Binding Capacity (04/14/2024 12:47 PM EST) Iron 77 30 - 160 mcg/dL [facility] Total Iron Binding Capacity 339 228 - 428 mcg/dL [facility] Percent Iron Saturation 23 15 - 50 % [facility] Unsaturated Iron Binding 262 ug/dL [facility] 04/14/2024 12:4 7 PM EST 04/14/2024 12:47 PM EST us Gil Brewer MD LAB BLOOD ORDERABLES Final Resul t Performing Organization Address [facility] Co de Phone Number [facility] [address] [place] [phone] * (ABNORMAL) Basic Metabolic Panel (04/14/2024 12:47 PM EST) Sodium 139 135 - 145 mmol/L [facility] Potassium 4.3 3.3 - 5.1 mmol/L [facility] Chloride 104 96 - 108 mmol/L [facility] Carbon Dioxide 27 22 - 29 mmol/L [facility] Anion Gap 12 12 - 20 [facility] Urea Nitrogen (BUN) 7(L) 9 - 16 mg/dL [facility] Creatinine, Serum 0.69 0.5 - 1.4 mg/dL [facility] Estimated Glomerular Filt Rate >60 [facility] Comment:Chronic Kidney Disea se: Estimated GFR < 60 mL/min/1.09m1Dtnnxt Kidney Disease: Estimated GFR < 15 mL/min/1.73m2 Glucose 84 60 - 115 mg/dL [facility] Calcium 9.5 8.4 - 10.2 mg/dL [facility] 04/14/2024 12:4 7 PM EST 04/14/2024 12:47 PM EST us Gil Name MD LAB BLOOD ORDERABLES Final Resul t [facility] [address] [place], [place] [phone] * (ABNORMAL) CBC auto differential (04/14/2024 12:47 PM EST) White Blood Count 6.5 4.8 - 10.8 X10*3/uL [facility] Red Blood Count 3.74(L) 4.20 - 5.50 X10*6/uL [facility] Hemoglobin 9.4(L) 12.0 - 16.0 g/dl [facility] Hematocrit 29.6(L) 37.0 - 47.0 % [facility] Mean Corpuscular Volume 79.1(L) 80.0 - 98.0 fL [facility] Mean Corpuscular Hemoglobin 25.1(L) 27.0 - 33.0 pg [facility] Mean Corpuscular HGB Conc 31.8 31.0 - 35.0 g/dl [facility] Red Cell Distribution Width 16.1(H) 11.0 - 16.0 % [facility] Platelet Count 530(H) 160 - 400 X10*3/uL [facility] Mean Platelet Volume 9.6 9.4 - 12.3 fL [facility] Neutrophils Percent Auto 56.2 45 - 73 % [facility] Imm Gran Pct Auto 0.6(H) 0.0 - 0.4 % [facility] Lymphocytes Percent Auto 32.5 20 - 40 % [facility] Monocytes Percent Auto 8.8 2 - 11 % [facility] Eosinophils Percent Auto 1.4 0 - 4 % [facility] Basophils Percent Auto 0.5 0 - 2 % [facility] NRBC Pct Auto 0.0 0.0 - 0.2 /100WBC [facility] Neutrophils Absolute Auto 3.7 2.0 - 8.3 x10*3/uL [facility] Imm Gran Abs Auto 0.04(H) 0.00 - 0.03 X10*3/uL [facility] Lymphocytes Absolute Auto 2.1 1.2 - 4.9 X10*3/uL [facility] Monocytes Absolute Auto 0.6 0.1 - 1.2 X10*3/uL [facility] Eosinophils Absolute Auto 0.1 0.0 - 0.4 X10*3/uL [facility] Basophils Absolute Auto 0.0 0.0 - 0.2 X10*3/uL [facility] NRBC Abs Auto 0.000 0.0 - 0.012 X10*3/uL [facility] 04/14/2024 12:4 7 PM EST 04/14/2024 12:47 PM EST us Gil Brewer MD LAB BLOOD ORDERABLES Final Resul t Performing Organization Address City/[facility]/ZIP Co de Phone Number [facility] [address] [place] [address] [phone] * (ABNORMAL) Osmolality, Urine (04/14/2024 12:45 PM EST) OSMOLALITY URINE 212(L) 373 - 1,093 mosm/kg [facility] 04/14/2024 12:4 5 PM EST 04/14/2024 1:55 PM EST us Generic External Data Provider LAB URINE ORDERAB LES Final Result Performing Organization Address [facility] Co de Phone Number [facility] [address] [place] [address] [phone] * Sodium Without creatinine, Random Urine (04/14/2024 12:45 PM EST) Sodium Urine Random 47.0 mmol/L [facility] 04/14/2024 12:4 5 PM EST 04/14/2024 1:55 PM EST us Generic External Data Provider LAB BLOOD ORDERAB LES Final Result [facility] [address] [place] [address] [phone] documented in this encounter Visit Diagnoses Not on filedocumented in this encounter Additional Health Concerns Assessment Noted Time PHQ-9 Depression Total Score: 3 06/15/19 24 11:48 AM EDT documented as of this encounter Care Teams Cheesemaker Helper Relationship Specialty Start Date End Date Maddie Kim MD [address] [place] [address] PCP - General Family Medicine 07/12/20 [facility] 01/17/22 01/05/25 [facility] 12/25/24 documented as of this encounter
--- OUTSIDE RECORDS SUMMARY | 2025-01-23 19:02 | XMS_ITS | Encounter Summary ---
Author Organization [employer] Address [address] [place] [address] 7t [place] [address] Care Team Providers Care Texture Artist Name Role Phone Maddie Kim MD Primary Care Provider [phone] Reason for Referral * Consultation (Urgent) - Closed Specialty Diagnoses / Procedures Referred By Sindi mejia Referred To Contact Cardiology Diagnoses Primary hypertension Tachycardia Other chest pain Maddie Kim MD [address] [place] [address] Phone: tel: fax: [facility] Referral ID Status Reason Start Date Expiration Date V isits Requested Visits Authorized [id number] Closed Specialty Services Required 05/06/2024 05/06/2025 1 1 Encounter Details Date Type Department Care Team (Late st Contact Info) Description 05/06/2024 Orders Only [facility] MEDICINE [address] [place], [place] [phone] Maddie Kim MD [address] [place], [place] [phone] Primary hypertension (Primary Dx); Tachycardia; Other chest [...] Description 03/27/2025 1:30 PM EST Office Visit [facility]INE [address] [place] [address] Maddie Kim MD [address] [place] [address] Scheduled Referrals Name Type Priority Associated Diagnoses [...] documented as of this encounter Care Teams Texture Artist Relationship Specialty Start Date End Date Maddie Kim MD [address] [place] [address] PCP - General Family Medicine 07/12/20 Willie Gage 01/17/22 01/05/25 [facility] 12/25/24 documented as of this encounter
--- OUTSIDE RECORDS SUMMARY | 2025-01-23 19:02 | XMS_ITS | Encounter Summary ---
Author Organization [employer] Address [address] [place] [address] 7 [place] [address] Care Team Providers Care Migrant Leader Name Role Phone Maddie Kim MD Primary Care Provider [phone] Reason for Visit * Reason Onset Date Comments Referral 05/05/2024 Encounter Details Date Type Department Care Team ([facility] Contact Info) Description 05/05/2024 Telephone [facility] MEDICINE 230 [place], [place] [phone] Maddie Kim MD [address] [place], [place] [phone] Referral Social History Tobacco Use Types Packs/Day [...] pt requesting referral that was placed for numerical control machine tool operator needs to say URGENT as pt has surgery in May and facility inform availability is for June unless PCP states is urgent. documented in this encounter Plan of Treatment Upcoming Encounters Date Type Department Care Team (Late st Contact Info) Description 03/27/2025 1:30 PM EST Office Visit [facility] MEDICINE [address] [place] [phone] Maddie Kim MD [address] [place] [address] documented as of this encounter Visit Diagnoses Not on filedocumented in this encounter Additional Health Concerns Assessment Noted Time PHQ-9 Depression Total Score: 3 06/15/19 24 11:48 AM EDT documented as of this encounter Care Teams Migrant Leader Relationship Specialty Start Date End Date Maddie Kim MD [address] [place] [phone] PCP - General Family Medicine 07/12/20 Willie Gage 01/17/22 01/05/25 [facility] 12/25/24 documented as of this encounter
--- OUTSIDE RECORDS SUMMARY | 2025-01-23 19:02 | XMS_ITS | Encounter Summary ---
Author Organization [employer] Address [address] [place] [address] 7 [place] [address] Care Team Providers Care Hall Director Name Role Phone Maddie Kim MD Primary Care Provider [phone] Reason for Visit * Reason Onset Date Comments Med Refill 01/18/2025 Encounter Details Date Type Department Care Team ([facility] Contact Info) Description 01/18/2025 Refill [facility] [address] [place], [place] [phone] Maddie Kim MD 230 [place] [address] Social History Tobacco Use Types Packs/Day Years [...] 03/27/2025 1:30 PM EST Office Visit [facility] [address] [place] [address] Maddie Kim MD [address] [place] [phone] documented as of this encounter Visit Diagnoses Not on filedocumented in this encounter Additional Health Concerns Assessment Noted Time PHQ-9 Depression Total Score: 10 025 3:49 PM EST documented as of this encounter Care Teams Hall Director Relationship Specialty Start Date End Date Maddie Kim MD [address] [place] [address] PCP - General Family Medicine 07/12/20 [facility] 12/25/24 documented as of this encounter
--- OUTSIDE RECORDS SUMMARY | 2025-01-23 19:02 | XMS_ITS | Encounter Summary ---
Author Organization [employer] Address [address] [place] [address] 7 [place] [address] Care Team Providers Care Hedis Analyst Name Role Phone Maddie Kim MD Primary Care Provider [phone] Reason for Visit * Reason Onset Date Comments Medication Question 07/09/2024 Encounter Details Date Type Department Care Team ([facility] Contact Info) Description 07/09/2024 Telephone [facility] MEDICINE [address] [place], [place] [phone] Maddie Kim MD 230 [place], [place] [phone] Medication Question Social History Tobacco Use Types [...] 06/18/24 per PCP note. Patent spoke to mechanotherapist's today and reported that [facility] is unable [...] Description 03/27/2025 1:30 PM EST Office Visit [facility] MEDICINE [address] [place] [address] Maddie Kim MD 230 [place] [address] documented as of this encounter Visit Diagnoses Not on filedocumented in this encounter Additional Health Concerns Assessment Noted Time PHQ-9 Depression Total Score: 9 07/05/19 25 6:48 AM EDT documented as of this encounter Care Teams Hedis Analyst Relationship Specialty Start Date End Date Maddie Kim MD 230 [place] [address] PCP - General Family Medicine 07/12/20 [facility] 01/17/22 01/05/25 [facility] 12/25/24 documented as of this encounter
--- OUTSIDE RECORDS SUMMARY | 2025-01-23 19:02 | XMS_ITS | Encounter Summary ---
Author Organization [employer] Address [address] [place] [address] 7 [place] [address] Care Team Providers Care Hot Water Heater Installer Name Role Phone Maddie Kim MD Primary Care Provider [phone] Reason for Visit * Reason Onset Date Comments Nurse Triage 05/14/2023 Encounter Details Date Type Department Care Team ([facility] st Contact Info) Description 05/14/2023 Telephone [facility] MEDICINE 230 [place], [place] [phone] Maddie Kim MD 230 [place], [place] [phone] Nurse Triage Social History Tobacco Use Types [...] accepted this outcome Any questions to Destiny [phone] documented in this encounter Plan of Treatment Upcoming Encounters Date Type Department Care Team (Late st Contact Info) Description 03/27/2025 1:30 PM EST Office Visit [facility] MEDICINE [address] [place] [address] Maddie Kim MD [address] [place] [address] documented as of this encounter Visit Diagnoses Not on filedocumented in this encounter Additional Health Concerns Assessment Noted Time PHQ-9 Depression Total Score: 0 05/30/19 23 3:26 PM EDT documented as of this encounter Care Teams Hot Water Heater Installer Relationship Specialty Start Date End Date Maddie Kim MD [address] [place] [address] PCP - General Family Medicine 07/12/20 [facility] 01/17/22 01/05/25 [facility] 12/25/24 documented as of this encounter
--- OUTSIDE RECORDS SUMMARY | 2025-01-23 19:02 | XMS_ITS | Encounter Summary ---
Author Organization [employer] Address [address] [facility] 7t [place] [address] Care Team Providers Care Farmworker Dairy Name Role Phone Maddie Kim MD Primary Care Provider [phone] Reason for Visit * Reason Onset Date Comments Med Refill 04/04/2023 Encounter Details Date Type Department Care Team ([facility] Contact Info) Description 04/04/2023 Refill [facility] [address] [place] [address] [phone] Isac Gonzalez MD 230 [place], [place] [phone] Chronic bilateral low back pain without sciatica [...] Description 03/27/2025 1:30 PM EST Office Visit [facility] MED[facility]INE 230 [place] [address] Maddie Kim MD 230 [place] [address] documented as of this encounter Visit Diagnoses Diagnosis Chronic bilateral low back pain without sciatica documented in this encounter Additional Health Concerns Assessment Noted Time PHQ-9 Depression Total Score: 0 05/30/19 23 3:26 PM EDT documented as of this encounter Care Teams Farmworker Dairy Relationship Specialty Start Date End Date Maddie Kim MD 230 [place] [address] PCP - General Family Medicine 07/12/20 [facility] 01/17/22 01/05/25 [facility] 12/25/24 documented as of this encounter
--- OUTSIDE RECORDS SUMMARY | 2025-01-23 19:02 | XMS_ITS | Continuity of Care Document ---
Author Organization [email or web address] [facility] Address [address] [place] [address] Care Team Providers Care Watch Case Polisher Name Role Phone HIM CCA OTHER Unavailable Primary Care Provider Assessment Encounter Date Assessment Date Assessment LastModified by Organization Details LastModified Time 11/22/2024 11/22/2024 I provided real -time medical direction via phone for this encounter and was available for additional phone-based assistance as needed. I have reviewed and agree with the Assessment and Plan as documented by the Laundry Or Dry Cleaners Counter Clerk. Patient given the opportunity to ask questions. Our service contacted for an assessment of: Migraine KO As per above, patient with acute onset of MHA this am. Has taken usual meds. No NSAIDs today. Has tolerated Toradol in the past. Per motor assembler on the scene, VSS, AF Please read the motor assembler note for their exam findings. Impression: Plan: [...] particularly fever chills lightheadedness altered mental status [place] [address] Not available 11/22/2024 11:23:03 Plan of Treatment Reminders Order Date Submit Date Provider Last Modified By Organization Details Last Modified Time Details Appointments None recorded. Lab None recorded. Referral None recorded. Procedures None recorded. Surgeries None recorded. Imaging None recorded. Medication Orders ketorolac 30 mg/mL injection solution [address] [address] [facility], [address] [place] [address] 105, [place], [place], [id number], 5 11:19:38 Patient TargetsNo targets recorded. Patient InstructionsNo instructions recorded. Reason for Referral None Reported. Medical Equipment None Reported. Allergies Allergen ID Allergen Name Allergen Category Reaction Reaction Severity Criticality Documentation Date Start Date Code Code System Note Provider Name and Address Organization Details Recorded Time 50640 Dilantin medicatio n Not available Not available Not available 02/22/202479317 0 RxNorm Not Available [facility] 5 14:48:20 99814 sulfameth oxazole medicatio n Not available Not available Not available 02/22/2024 90766 RxNorm Not Available [facility] 14:48:20 23336 trimethop rim medicatio n Not available Not available Not available 02/22/2024 87881 RxNorm Not Available [facility] 5 10:23:13 68400 Product containin g penicilli n (product) medicatio n Not available Not available Not available 02/22/2024 26933 8001 SNOMED Not Available [facility] 5 14:48:20 74070 penicilli n G benzathin e medicatio n Not available Not available Not available 02/22/2024 7982 RxNorm Not Available [facility] 14:48:20 71658 penicilli n G procaine medicatio n Not available Not available Not available 02/22/2024 7983 RxNorm Not Available [facility] 5 14:48:20 96175 Non-stero idal anti-infl ammatory agent (substanc e) medicatio n other Not available [facility] 10/06/2024 73794 5008 SNOMED H/o GIB and gastr ic ulcer s with all NSAID s - told not to take Fawn Coelho MD [address] [facility],[address], [place], [address], [facility] [employer], [facility] 5 15:15:41 Medications Name Sig Start [...] ICD10 Code Diagnosis IMO Codes Diagnosis Note [id number] TRISTON GILBERT NP, [facility] [address] [address] 10/26/2024 17:36:16 10/27/2024 15:59:17 Acute low back pain [id number] M54.50 [id number] Fawn Coelho MD [address] [address] 11/22/2024 11:04:45 11/22/2024 12:18:43 Acute migraine [id number] 95800 G43.909 [id number] Health Concerns Section Related Observation LastModified by [...] (MEDICARE REPLACEMENT/ADV ANTAGE - HMO) Atiya Dotson [id number] Atiya Dotson Notes Date Note Type Note [...] ...................... ...................... ...................... ...................... ...................... ...................... ......... Laundry [employer] Dry Clean[employer] Counter Clerk Note From Gunnar Cobb: Arrived to find [...] VS as noted. No red flag symptoms. [facility] contacted advised 30mg toradol IM. 30mg toradol given in right deltoid without incident. Patient in agreement with plan. ...................... ...................... ...................... ...................... ...................... ...................... ......... [facility] Consulted: Fawn Coelho ...................... ...................... ...................... ...................... ...................... ...................... ......... Disposition: Fulfilled Fawn Coelho MD [address] [facility],[address] [facility], [place], [address], [employer] 11/22/2024 11:55:19 OBGyn Episode No OBEpisode recorded.
--- OUTSIDE RECORDS SUMMARY | 2025-01-23 19:02 | XMS_ITS | Encounter Summary ---
Author Organization [employer] Address [address] [place] [address] 7 [place] [address] Care Team Providers Care Leadership Intern Name Role Phone Maddie Kim MD Primary Care Provider [phone] Reason for Visit * Reason Onset Date Comments Verbal orders/ Medication question 05/08/2023 Encounter Details Date Type Department Care Team ([facility] Contact Info) Description 05/08/2023 Telephone [facility] MEDICINE 230 [place], [place] [phone] Maddie Kim MD 230 [place], [place] [phone] Verbal orders/ Medication question Social History Tobacco [...] 05/09/2023 9:54 AM EDT TC placed to Thelma at the [facility] and gave VO for nursing home for 3 times a week. Pt medications were also reconciled and pt reports using Viviscal OTC for hair growth and Calcium + VitD supplements. * Telephone Encounter - Toña Castillo - 05/08/2023 4:20 PM EDT Tc from [facility] requesting some verbal orders reconciliation for skill nursing 3 times a week. Thelma is also requesting a call back to speak about patient's medications. documented in this encounter Plan of Treatment Upcoming Encounters Date Type Department Care Team (Late st Contact Info) Description 03/27/2025 1:30 PM EST Office Visit [facility] MEDICINE 230 [place] [address] Maddie Kim MD 230 [place] [address] documented as of this encounter Visit Diagnoses Not on filedocumented in this encounter Additional Health Concerns Assessment Noted Time PHQ-9 Depression Total Score: 0 05/30/19 23 3:26 PM EDT documented as of this encounter Care Teams Leadership Intern Relationship Specialty Start Date End Date Maddie Kim MD 230 [place] [address] PCP - General Family Medicine 07/12/20 [facility] 01/17/22 01/05/25 [facility] 12/25/24 documented as of this encounter
--- OUTSIDE RECORDS SUMMARY | 2025-01-23 19:02 | XMS_ITS | Encounter Summary ---
Author Organization [employer] Address [address] [facility] 7t [place] [address] Care Team Providers Care Concert Or Lecture Hall Manager Name Role Phone Maddie Kim MD Primary Care Provider [phone] Reason for Visit * Reason Comments Med Refill Encounter Details Date Type Department Care Team ([facility] st Contact Info) Description 04/12/2023 Refill [facility] [address] [place] [address] [phone] Isac Gonzalez MD [address] [place] [address] [phone] Chronic bilateral low back pain without sciatica [...] Office Visit [facility] MEDICINE [address] [place] [address] Maddie Kim MD [address] [place] [address] documented as of this encounter Visit Diagnoses Diagnosis Chronic bilateral low back pain without sciatica documented in this encounter Additional Health Concerns Assessment Noted Time PHQ-9 Depression Total Score: 0 05/30/19 23 3:26 PM EDT documented as of this encounter Care Teams Concert Or Lecture Hall Manager Relationship Specialty Start Date End Date Maddie Kim MD [address] [place] [address] PCP - General Family Medicine 07/12/20 [facility] 01/05/25 [facility] 12/25/24 documented as of this encounter
--- OUTSIDE RECORDS SUMMARY | 2025-01-23 19:02 | XMS_ITS | Encounter Summary ---
Author Organization [employer] Address [address] [place] [address] 7t [place] [address] Care Team Providers Care Ekg Manager Name Role Phone Maddie Kim MD Primary Care Provider [phone] Encounter Details Date Type Department Care Team ([facility] Contact Info) Description 06/26/2022 Abstract [facility] MEDICINE [address] [place] [address] Maddie Kim MD [address] [place] [address] [phone] Social History Tobacco Use Types Packs/Day Years [...] Upcoming Encounters Date Type Department Care Team ([facility] Contact Info) Description 03/27/2025 1:30 PM EST Office Visit [facility] MEDICINE 230 [place] [address] Maddie Kim MD 230 [place] [address] documented as of this encounter Visit Diagnoses Not on filedocumented in this encounter Additional Health Concerns Assessment Noted Time PHQ-9 Depression Total Score: 0 05/30/19 23 3:26 PM EDT documented as of this encounter Care Teams Ekg Manager Relationship Specialty Start Date End Date Maddie Kim MD 230 [place] [address] PCP - General Family Medicine 07/12/20 [facility] 01/17/22 01/05/25 [facility] 12/25/24 documented as of this encounter
--- OUTSIDE RECORDS SUMMARY | 2025-01-23 19:02 | XMS_ITS | Encounter Summary ---
Author Organization [employer] Address [address] [place] [address] 7 [place] [address] Care Team Providers Care Electronics Production Supervisor Name Role Phone Maddie Kim MD Primary Care Provider [phone] Reason for Visit * Reason Onset Date Comments Nurse Triage 01/23/2025 Encounter Details Date Type Department Care Team ([facility] Contact Info) Description 01/23/2025 Telephone [facility] MEDICINE 230 [place], [place] [phone] Maddie Kim MD 230 [place], [place] [phone] Nurse Triage Social History Tobacco Use Types [...] the past 12 months, has t he [employer] gas, oil or water [employer] threatened to shut off services in your [...] Miscellaneous Notes * Telephone Encounter - Jose Miguel Carlson - 01/23/2025 3:19 PM EST Tc from pt returning call regarding message prior. * Telephone Encounter - Sheila Rene RN - 01/23/2025 2:34 PM EST TC placed to patient [phone] in regards to below message. Patient did not answer, RN left requesting CB to red team nurses. Patient to f/u PRN. * Telephone Encounter - Maddie Kim MD - 01/23/2025 11:23 AM EST Please contact patient that I do not recommend use of opioids routinely for strains. Given her recent struggle through relapse and constipation verging on SBO, the risks are greater than the benefits. To use heat, relative rest, and stretching. * Telephone Encounter - Yvonne Biswas RN - 01/23/2025 10:10 AM EST Telephone call to pt who reports history of chronic back pain but has been lifting heavy objects while remodeling house recently and strained back worse than normal. States pain is 8/10, center lowback near tailbone/sacrum, states she can walk but is having difficulty. Denies nausea/vomiting, fever, numbness, loss of bladder control. Taking baclofen and tylenol to minimal relief. RN offered pt sick on site appt today or to come to [facility] today or tomorrow, pt open to [facility] but also requested message to be sent to PCP Dr. Kim to see if short supply of something to help with this can be prescribed, states she has been sent medication in the past. RN advised herin person provider evaluation is best, cannot guarantee Dr. Kim response. Reviewed red flags and when to seek urgent medical attention. Pt verbalized understanding. Protocol Used: Back Pain (Adult) Protocol-Based Disposition: See in Office or Video Visit within 3 Days Video visit offer not recorded Positive Triage Question: * Moderate back pain (e.g., interferes with normal activities) and present > 3 days * All higher-acuity triage questions were negative. Care Advice Discussed: * Use a Cold Pack for Pain * Use Heat After 48 Hours for Pain * Sleep * Pain Medicines * Reasons To Call Back - Fever occurs - Numbness or weakness occurs - Loss of control of your bladder or bowel - Severe pain not better after taking pain medicines - Pain begins to shoot into the leg - Pain lasts over 2 weeks - Pain becomes worse - You become worse * Telephone Encounter - Gelaalise Keaton - 01/23/2025 9:33 AM EST Symptom: Back Pain - Not From Injury Outcome: Schedule an appointment to be seen within 3 days Reason: Caller denied all higher acuity questions The caller accepted this outcome. Contact pt at [phone] (persian) documented in this encounter Plan of Treatment Upcoming Encounters Date Type Department Care Team (Late st Contact Info) Description 03/27/2025 1:30 PM EST Office Visit [facility] MEDICINE [address] [place] [address] Maddie Kim MD [address] [place] [address] documented as of this encounter Visit Diagnoses Not on filedocumented in this encounter Additional Health Concerns Assessment Noted Time PHQ-9 Depression Total Score: 10 025 3:49 PM EST documented as of this encounter Care Teams Electronics Production Supervisor Relationship Specialty Start Date End Date Maddie Kim MD 230 [place], [place] [phone] PCP - General Family Medicine 07/12/20 [facility] 12/25/24 documented as of this encounter
--- OUTSIDE RECORDS SUMMARY | 2025-01-23 19:02 | XMS_ITS | Encounter Summary ---
Author Organization [employer] Address [address] [place] [address] 7t [place] [address] Care Team Providers Care Service Order Dispatcher Chief Name Role Phone Maddie Kim MD Primary Care Provider [phone] Encounter Details Date Type Department Care Team ([facility] st Contact Info) Description 07/07/2024 Orders Only [facility] MEDICINE [address] [place], [place] [phone] Maddie Kim MD [address] [place], [place] [phone] Benign hypertension (Primary Dx) Social History Tobacco [...] Description 03/27/2025 1:30 PM EST Office Visit [facility] MEDICINE [address] [place] [address] Maddie Kim MD [address] [place] [address] documented as of this encounter Procedures Procedure Name Priority Date/Time Associated Diagnosis Comments BASIC METABOLIC PANEL Routine 07/10/2024 8:29 AM EDT Benign hypertension documented in this encounter Results * (ABNORMAL) Basic Metabolic Panel (07/10/2024 8:29 AM EDT) Sodium 136 135 - 145 mmol/L [facility] Potassium 4.3 3.3 - 5.1 mmol/L [facility] Chloride 105 96 - 108 mmol/L [facility] Carbon Dioxide 24 22 - 29 mmol/L [facility] Anion Gap 11(L) 12 - 20 [facility] Urea Nitrogen (BUN) 13 9 - 16 mg/dL [facility] Creatinine, Serum 0.68 0.5 - 1.4 mg/dL [facility] Estimated Glomerular Filt Rate >60 [facility] Comment:Chronic Kidney Disea se: Estimated GFR < 60 mL/min/1.73e9Mokjpn Kidney Disease: Estimated GFR < 15 mL/min/1.73m2 Glucose 88 60 - 115 mg/dL [facility] Calcium 9.3 8.4 - 10.2 mg/dL [facility] Blood Venous blood specimen / Unknown 07/10/2024 8:29 AM EDT 07/10/2024 8:29 AM EDT us Maddie Kim MD LAB BLOOD ORDERABLES Final Res ult [facility] [address] [place] [address] [phone] documented in this encounter Visit Diagnoses Diagnosis Benign hypertension- Primary Essential hypertension, benign documented in this encounter Additional Health Concerns Assessment Noted Time PHQ-9 Depression Total Score: 9 07/05/19 25 6:48 AM EDT documented as of this encounter Care Teams Service Order Dispatcher Chief Relationship Specialty Start Date End Date Maddie Kim MD [address] [place] [address] PCP - General Family Medicine 07/12/20 Willie Gage 01/17/22 01/05/25 [facility] 12/25/24 documented as of this encounter
--- OUTSIDE RECORDS SUMMARY | 2025-01-23 19:02 | XMS_ITS | Encounter Summary ---
Author Organization [employer] Address [address] [place] [address] 7t [place] [address] Care Team Providers Care Squaring Shear Operator Name Role Phone Maddie Kim MD Primary Care Provider [phone] Encounter Details Date Type Department Care Team ([facility] Contact Info) Description 01/02/2024 Orders Only [facility] MEDICINE 230 [place], [place] [phone] Maddie Kim MD [address] [place], [place] [phone] Social History Tobacco Use Types Packs/Day Years [...] Description 03/27/2025 1:30 PM EST Office Visit [facility] MEDICINE [address] [place] [address] Maddie Kim MD [address] [place] [address] documented as of this encounter Visit Diagnoses Not on filedocumented in this encounter Additional Health Concerns Assessment Noted Time PHQ-9 Depression Total Score: 3 06/15/19 24 11:48 AM EDT documented as of this encounter Care Teams Squaring Shear Operator Relationship Specialty Start Date End Date Maddie Kim MD [address] [place] [address] PCP - General Family Medicine 07/12/20 [facility]age 01/17/22 01/05/25 [facility] 12/25/24 documented as of this encounter
--- OUTSIDE RECORDS SUMMARY | 2025-01-23 19:02 | XMS_ITS | Encounter Summary ---
Author Organization [employer] Address [address] [place] [address] 7 [place] [address] Care Team Providers Care Pork Cutlet Maker Name Role Phone Maddie Kim MD Primary Care Provider [phone] Encounter Details Date Type Department Care Team ([facility] Contact Info) Description 03/30/2022 Abstract [facility] [address] [place] [address] [phone] Maddie Kim MD [address] [place] [address] [phone] Social History Tobacco Use Types Packs/Day Years [...] Description 03/27/2025 1:30 PM EST Office Visit [facility] [address] [place] [address] [phone] Maddie Kim MD [address] [place] [address] [phone] documented as of this encounter Visit Diagnoses Not on filedocumented in this encounter Care Teams Pork Cutlet Maker Relationship Specialty Start Date End Date Maddie Kim MD [address] [place] [address] PCP - General Family Medicine 07/12/20 Willie [facility] 01/17/22 01/05/25 [facility] 12/25/24 documented as of this encounter
--- OUTSIDE RECORDS SUMMARY | 2025-01-23 19:02 | XMS_ITS | Encounter Summary ---
Author Organization [employer] Address [address] [place] [address] 7 [place] [address] Care Team Providers Care Assembly Department Supervisor Name Role Phone Maddie Kim MD Primary Care Provider [phone] Reason for Referral * Consultation (Routine) - Closed Specialty Diagnoses / Procedures Referred By Sindi mejia Referred To Contact Nutrition Diagnoses Class 2 severe obesity with serious comorbidity and body mass index (BMI) of 39.0 to 39.9 in adult, unspecified obesity type Maddie Kim MD [address] [place] [address] Phone: tel: fax: Referral ID Status Reason Start Date Expiration Date V isits Requested Visits Authorized [id number] Closed Consult and Treat 04/06/2023 04/05/2024 1 1 Encounter Details Date Type Department Care Team (Late st Contact Info) Description 04/06/2023 Orders Only [facility] [address] [place] [address] [phone] Maddie Kim MD [address] [place] [address] [phone] Class 2 severe obesity with serious comorbidity [...] EST Office Visit [facility] [address] [place] [address] Maddie Kim MD [address] [place] [address] Scheduled Referrals Name Type Priority Associated Diagnoses [...] PM EDT Narrative 05/26/2023 3:06 PM EDT [facility] [address] [place] [address] Mammography Report Signed Patient: Atiya Esparza MR#: [id number] : 1975 Acct:[id number] Age/Sex: 47 / F ADM Date: 05/04/23 Loc: MICHA[facility] Attending Dr: Maddie Kim MD Ordering Physician: Maddie Kim Results: 1Negative Date of Service: 05/04/23 Follow Up: 1 Year From Orig inal Mammogram Procedure(s): MM tomosynthesis screening BI Accession Number(s): [id number] cc: Maddie Kim EXAMINATION: MM SCREENING DIGITAL [...] in OV> 05/26/23 1503 DD/ 1602 TD/TT: Lumber Sticker: Procedure Note Donotuseinterpreter, Image - 05/26/2023 [facility] [address] [place] [address] Mammography Report Signed Patient: Zain Esparza#: [id number] : 1975Acct:[id number] Age/Sex: 47 / FADM Date: 05/04/23 Loc: MICHAEL Attending Dr: Maddie Kim MD Ordering Physician: Jaja Kimults: 1Negative Date of Service: 05/04/23Follow Up: 1 Year From Orig inal Mammogram Procedure(s): MM tomosynthesis screening BI Accession Number(s): [id number] cc: Maddie Kim EXAMINATION: MM SCREENING DIGITAL [...] in OV> 05/26/23 1503 DD/ 1602 TD/TT: Lumber Sticker: Maddie Kim MD IMG BI PROCEDURES Final [...] documented as of this encounter Care Teams Assembly Department Supervisor Relationship Specialty Start Date End Date Maddie Kim MD [address] [place] [address] PCP - General Family Medicine 07/12/20 Willie [facility] 01/17/22 01/05/25 [facility] 12/25/24 documented as of this encounter
--- OUTSIDE RECORDS SUMMARY | 2025-01-23 19:02 | XMS_ITS | Encounter Summary ---
Author Organization [employer] Address [address] [place] [address] 7t [place] [address] Care Team Providers Care Commodities Trader Name Role Phone Maddie Kim MD Primary Care Provider [phone] Encounter Details Date Type Department Care Team ([facility] Contact Info) Description 11/21/2024 Orders Only [facility] [address] [place], [place] [phone] Maddie Kim MD [address] [place], [place] [phone] Social History Tobacco Use Types Packs/Day Years [...] 03/27/2025 1:30 PM EST Office Visit [facility] [address] [place] [phone] Maddie Kim MD [address] [place] [address] documented as of this encounter Visit Diagnoses Not on filedocumented in this encounter Additional Health Concerns Assessment Noted Time PHQ-9 Depression Total Score: 9 07/05/19 25 6:48 AM EDT documented as of this encounter Care Teams Commodities Trader Relationship Specialty Start Date End Date Maddie Kim MD [address] [place] [address] PCP - General Family Medicine 07/12/20 Willie [facility] 01/17/22 01/05/25 [facility] 12/25/24 documented as of this encounter
--- OUTSIDE RECORDS SUMMARY | 2025-01-23 19:02 | XMS_ITS | Data Portability ---
Author Organization [employer] [facility], [facility] Address [address] [place] [address] Care Team Providers Care Tag Stringer Name Role Phone JEAN-PIERRE MASON Primary Care [...] Bridgettein g, [employer] 2024 025 [facility] [place], [address] [place] [address], [place], [address], 14:26:09 Procedures None recorded. Surgeries None recorded. Imaging None recorded. Medication Orders clindamycin HCl 300 mg capsule 2024 Antonio bansal [id number], [address] [place], [address], 5 12:46:20 Patient TargetsNo targets recorded. Patient [...] Address Organization Details Recorded Time No complaints 625203592 Active Status : 'I'; Not Available [facility] 4 09:21:06 Mass of joint of left wrist 3899063814789 9101 Active 2023 Cammy Ovalle, OTR/L,CHT [address], [place], [address] , [facility] 4 09:39:49 Fracture of ankle 66569273 [facility] 2023 [facility] 4 15:14:42 Postoperat laurence pain 651720040 Active 2024 Huma Augustin APRN [address], [place], [address] , [facility] 5 10:10:16 Problem Notes None recorded. Procedures Surgical History Date Name Laterality Status Provider Name and Address Organization Details Recorded Time 11/07/19 47236 Therapeutic Exercise (1:1) completed Julian Vera PT [address], [place], [address], [facility] 11/09/2024 19:58:43 11/07/19 55193: Manual therapy completed Julian Vera PT [address], [place], [address], [facility] 11/09/2024 19:58:43 10/25/19 57795 Therapeutic Exercise (1:1) completed Julian Vera, PT [address], [place], [address], [facility] 10/25/2024 23:06:22 10/25/19 33073: Manual therapy completed Julian Vera, PT [address], [place], [address], [facility] 10/25/2024 23:06:43 10/16/19 87440 Therapeutic Exercise (1:1) completed Krystina Galo, COLLAR TURNER [address], [place], [address], [facility] 10/16/2024 16:15:04 10/16/19 21326: Hot or Cold Pack completed Krystina Galo, COLLAR TURNER [address], [place], [address], [facility] 10/16/2024 16:15:20 10/11/19 04107 Therapeutic Exercise (1:1) completed Julian Vera, PT [address], [place], [address], [facility] 10/14/2024 07:11:36 10/11/19 05794: Low complexity PT Eval completed Julian Vera, PT [address], [place], [address], [facility] 10/14/2024 07:11:39 07/09/19 71324 Therapeutic Exercise (1:1) completed Na Gonzalez, COLLAR TURNER [address], [place], [address], [facility] 07/09/2024 21:36:12 07/09/19 02316: Neuromuscular Re-Education completed Na Gonzalez, COLLAR TURNER [address], [place], [address], [facility] 07/09/2024 21:40:29 07/04/19 99840: Therapeutic Activities (1:1) cancelled Hector Pyser, PT [address], [place], [address], [facility] 07/02/2024 05:38:15 07/04/19 34643 Therapeutic Exercise (1:1) cancelled Hector Pyser, PT [address], [place], [address], [facility] 07/02/2024 05:38:15 07/04/19 89777: Manual therapy cancelled Hector Pyser, PT [address], [place], [address], [facility] 07/02/2024 05:38:15 07/01/19 87788: Therapeutic Activities (1:1) completed Hector Pyser, PT [address], [place], [address], [facility] 06/30/2024 10:41:35 07/01/19 61808 Therapeutic Exercise (1:1) completed Hector Pyser, PT [address], [place], [address], [facility] 06/30/2024 11:06:28 07/01/19 87989: Manual therapy completed Hector Pyser, PT [address], [place], [address], [facility] 06/30/2024 11:06:16 06/28/19 00180: Therapeutic Activities (1:1) cancelled Hector Pyser, PT [address], [place], [address], [facility] 06/26/2024 12:47:26 06/28/19 30612 Therapeutic Exercise (1:1) cancelled Hector Pyser, PT [address], [place], [address], [facility] 06/26/2024 12:47:26 06/28/19 08240: Manual therapy cancelled Hector Pyser, PT [address], [place], [address], [facility] 06/26/2024 12:47:26 06/25/19 59726: Therapeutic Activities (1:1) cancelled Hector Georgeser, PT [address], [place], [address], [facility] 06/23/2024 16:32:14 06/25/19 23918 Therapeutic Exercise (1:1) cancelled Hector Pyser, PT [address], [place], [address], [facility] 06/23/2024 16:32:14 06/25/19 83145: Manual therapy cancelled Hector Georgeser, PT [address], [place], [address], [facility] 06/23/2024 16:32:14 06/19/19 85673: Therapeutic Activities (1:1) completed Na Gonzalez, COLLAR TURNER [address], [place], [address], [facility] 06/18/2024 15:01:55 06/19/19 88067 Therapeutic Exercise (1:1) completed Na Gonzalez, COLLAR TURNER [address], [place], [address], [facility] 06/18/2024 15:01:55 06/19/19 98314: Manual therapy completed Na Gonzalez, COLLAR TURNER [address], [place], [address], [facility] 06/18/2024 15:01:55 06/13/19 69858: Therapeutic Activities (1:1) completed Na Gonzalez, COLLAR TURNER [address], [place], [address], [facility] 06/13/2024 07:27:56 06/13/19 95370 Therapeutic Exercise (1:1) completed Na Gonzalez, COLLAR TURNER [address], [place], [address], [facility] 06/13/2024 07:27:26 06/13/19 05772: Manual therapy completed Na Gonzalez, COLLAR TURNER [address], [place], [address], [facility] 06/13/2024 07:27:52 06/10/19 46190 Therapeutic Exercise (1:1) completed Hector Pyser, PT [address], [place], [address], [facility] 05/31/2024 14:22:51 06/10/19 72379: Low complexity PT Eval completed Hector Pyser, PT [address], [place], [address], [facility] 05/31/2024 14:22:53 05/01/19 49885 Therapeutic Exercise (1:1) completed Hector Pyser, PT [address], [place], [address], [facility] 04/29/2024 14:50:39 05/01/19 35567: Low complexity PT Eval completed Hector Pyser, PT [address], [place], [address], [facility] 04/29/2024 14:50:41 12/04/19 Sports Knee 4&1 completed Juancarlos Iyer PA-C [address], [place], [address], [facility] 12/04/2023 11:27:50 06/08/19 24 Splint_Short Arm Fiberglass_11+ completed JUNI SHELTON [facility] 06/08/2023 13:25:25 Imaging Results None recorded. Procedure Notes None recorded. Medical Equipment None Reported. Allergies Allergen ID Allergen Name Allergen Category Reaction Reaction Severity Criticality Documentation Date Start Date Code Code System Note Provider Name and Address Organization Details Recorded Time 461170 penicilli n G benzathin e medicatio n Not available Not available Not available 04/23/20232012 7982 RxNorm GOMEZ LAMA [facility], [facility] 4 13:22:51 322410 Dilaudid medicatio n Not available Not available Not available 04/23/20232012 32435 3 RxNorm GOMEZ LAMA [facility], [facility] 4 13:22:48 458745 Bactrim medicatio n Not available Not available Not available 04/23/20232020 41943 9 RxNorm JACKIE CISNEROS [facility], [facility] 5 14:12:53 Medications Name [...] Updated DateTime 09/18/2024 157.48 cm 40.1 kg/m2 63468.73 g JACKIE CISNEROS [place] - [facility] 09/18/2024 10:54:52 Social History None recorded. Functional [...] ICD10 Code Diagnosis IMO Codes Diagnosis Note [id number] Scott Virgen MD [facility] 1st Floor [address] [facility] [address] [place] [address] 06/08/2023 13:04:19 06/08/2023 13:29:48 Postoperative care 735664684 Z48.89 [id number] Cammy Ovalle, OTR/L,CHT [facility] 1st Floor [address] [place] [address] 06/19/2023 08:53:48 06/19/2023 09:24:40 Postoperative care 203840300 Z48.89 The surgical dressing is removed and [...] Mass of tara int of left wrist 8615843841 7296759 M25.832 The patient reports her difficulti es [...] digits with full sensation throughout the hand. [id number] MD Monet Leong 3rd [facility] [address] [place] [address] 07/04/2023 13:05:09 07/04/2023 14:32:21 Fracture of ankle 37583183 S82.92XD [id number] MD Monet Perry 1st [facility] [address] [place] [address] 07/18/2023 09:13:32 08/07/2023 11:36:21 Ganglion cyst of left volar wrist 8107608109 8930323 M67.723 [id number] MD Monet Leong 3rd [facility] [address] [place] [address] 08/29/2023 12:57:16 09/29/2023 06:09:53 Fracture of ankle 27745783 S82.92XD [id number] ALFRED Souza 2nd floor [address] [place] [address] 12/04/2023 10:33:27 12/27/2023 15:37:25 Pain of left knee joint 6243527719 52063 M25.562 Osteoarthr itis of knee 104087326 M17.9 [id number] MD VINOD Perry - Monet 1st [facility] [address] [place] [address] 03/14/2024 08:45:12 04/01/2024 15:12:53 Carpal tunnel syndrome of right wrist 3270888432 75130 G56.01 614395 [id number] MD VINOD Salguero Clinical [address] [place] [address] 04/10/2024 13:38:45 04/23/2024 08:50:58 Osteoarthritis of left knee joint 6816097970 33485 M17.12 7563993 [id number] Hector Pyser, PT [facility] [address] [place] [address] 04/30/2024 16:44:12 04/30/2024 17:31:01 Osteoarthritis of knee 038221417 M17.12 [id number] Mati Trinh, CLEANER FURNITURE [facility] [address]nd floor [address] [place] [address] 05/16/2024 08:50:29 05/30/2024 04:02:27 Osteoarthritis of left knee joint 2445709539 67493 M17.12 9202572 [id number] Hector Pyser, PT [facility] [address] [place] [address] 06/09/2024 16:25:39 06/09/2024 17:48:56 History of left total knee replacement 0665175216 238162 Z96.652 Z47.1 [id number] Alonzo Singleton PA-C [facility] [address] [place] [address] 06/10/2024 12:44:32 06/21/2024 19:41:07 Knee joint prosthesis present 8108583987 02 Z96.652 69164537 [id number] Na Gonzalez, COLLAR TURNER [facility] [address] [place] [address] 06/12/2024 11:16:51 06/12/2024 12:04:25 History of left total knee replacement 1056552296 558755 Z96.652 Z47.1 [id number] Na Fudge, COLLAR TURNER [facility] [address] [place] [address] 06/18/2024 14:25:56 06/18/2024 17:18:52 History of left total knee replacement 6799798546 654282 Z96.652 Z47.1 [id number] Hector Sams, PT [facility] [address] [place] [address] 06/30/2024 10:08:37 06/30/2024 14:09:41 History of left total knee replacement 0382162800 940164 Z96.652 Z47.1 [id number] Na Gonzalez, COLLAR TURNER [facility] [address] [place] [address] 07/08/2024 16:10:19 07/08/2024 17:23:29 History of left total knee replacement 6088953099 448991 Z96.652 Z47.1 [id number] MD VINOD Salguero Clinical [facility] [place] [address] 09/18/2024 10:44:43 09/24/2024 14:26:09 History of total knee arthroplasty 2123368837 105 Z96.652 22243058 [id number] Julian Billyo, PT [facility] [address] [place] [address] 10/10/2024 15:00:25 10/10/2024 16:11:43 Pain of left knee joint 8104283544 51699 M25.562 065969 [id number] Krystina Galo, COLLAR TURNER [facility] [address] [place] [address] 10/15/2024 15:18:59 10/15/2024 15:59:03 Pain of left knee joint 8610287182 54788 M25.562 [id number] Julian Chuy, PT [facility] [address] [place] [address] 10/24/2024 15:07:10 10/24/2024 16:05:18 Pain of left knee joint 1493338465 79015 M25.562 115795 [id number] Julian Chuy, PT [facility] [address] [place] [address] 11/06/2024 15:04:33 11/06/2024 16:31:36 Pain of left knee joint 8317130346 73823 M25.562 276122 Health Concerns Section Related Observation LastModified by Organization Detai ls LastModified Time None Recorded Concern Status LastModified by Organization Details LastModified Time None Recorded Advance Directives Directive None Recorded Payers Insurance Date Sequence Insurance Name Policy Number Policy Fernandez Covered Member ID Fernandez Member ID Guarantor Name 11/08/2024 1 [facility] - DOS ON OR AFTER 2022 - ONE CARE (MEDICARE REPLACEMENT/ADV ANTAGE - HMO) Atiya Dotson [id number] Atiya Dotson Notes Date Note Type Note [...] Vera, PT [address], [place], [address], [facility] 10/14/2024 07:21:32 10/15/2024 text/html Pt reports knee is fair, more soreness. Krystina Galo, COLLAR TURNER [address], [place], [address], [facility] 10/16/2024 16:19:29 10/24/2024 text/html Pt reports L knee has buckled a few times today (not really sure why), and also reporting L knee is still getting sore. Julian Vera, PT [address], [place], [address], [facility] 10/25/2024 23:08:14 11/06/2024 text/html Pt states L knee not really painful anymore though still has buckling episodes. Julian Vera, PT [address], [place], [address], [facility] 11/09/2024 20:04:58 OBGyn Episode No OBEpisode recorded.
--- OUTSIDE RECORDS SUMMARY | 2025-01-23 19:02 | XMS_ITS | Encounter Summary ---
Author Organization [employer] Address [address] [place] [address] 7 [place] [address] Care Team Providers Care Hard Tile Setter Name Role Phone Maddie Kim MD Primary Care Provider [phone] Reason for Visit * Reason Onset Date Comments Durable Medical Equipment 03/16/2022 Encounter Details Date Type Department Care Team ([facility] st Contact Info) Description 03/16/2022 Telephone [facility] [address] [place] [address] [phone] Maddie Kim MD [address] [place], [place] [phone] Durable Medical Equipment Social History Tobacco Use [...] it can fax to her landlord at [phone]. She would like the script to be to the [facility], [address] [place] [address] If any concerns please contact pt at [phone] documented in this encounter Plan of Treatment Upcoming Encounters Date Type Department Care Team (Late st Contact Info) Description 03/27/2025 1:30 PM EST Office Visit [facility] [address] [place] [phone] Maddie Kim MD [address] [place] [address] documented as of this encounter Visit Diagnoses Not on filedocumented in this encounter Care Teams Hard Tile Setter Relationship Specialty Start Date End Date Maddie Kim MD [address] [place] [address] PCP - General Family Medicine 07/12/20 Willie Gage 01/17/22 01/05/25 [facility] 12/25/24 documented as of this encounter
--- OUTSIDE RECORDS SUMMARY | 2025-01-23 19:02 | XMS_ITS | Encounter Summary ---
Author Organization [employer] Address [address] [place] [address] 7 [place] [address] Care Team Providers Care Pattern Changer And Repairer Name Role Phone Maddie Kim MD Primary Care Provider [phone] Reason for Visit * Reason Onset Date Comments Med Refill 01/18/2025 Encounter Details Date Type Department Care Team ([facility] Contact Info) Description 01/18/2025 Refill [facility] [address] [place], [place] [phone] Maddie Kim MD [address] [place], [place] [phone] Chronic midline low back pain without sciatica [...] Office Visit [facility] [address] [place] [address] Maddie Kim MD [address] [place] [address] documented as of this encounter Visit Diagnoses Diagnosis Chronic midline low back pain without sciatica documented in this encounter Additional Health Concerns Assessment Noted Time PHQ-9 Depression Total Score: 10 025 3:49 PM EST documented as of this encounter Care Teams Pattern Changer And Repairer Relationship Specialty Start Date End Date Maddie Kim MD [address] [place] [address] PCP - General Family Medicine 07/12/20 [facility] 12/25/24 documented as of this encounter
--- OUTSIDE RECORDS SUMMARY | 2025-01-23 19:02 | XMS_ITS | Encounter Summary ---
Author Organization [employer] Address [address] [facility] 7t [place] [address] Care Team Providers Care School Library Media Program Director Name Role Phone Maddie Kim MD Primary Care Provider Reason for Visit * Reason Comments Med Refill Encounter Details Date Type Department Care Team ([facility] st Contact Info) Description 03/18/2023 Refill [facility] [address] [place] [address] [phone] Maddie Kim MD [address] [place] [address] [phone] Social History Tobacco Use Types Packs/Day Years [...] Description 03/27/2025 1:30 PM EST Office Visit [facility] [address] [place] [phone] Maddie Kim MD [address] [place] [address] documented as of this encounter Visit Diagnoses Not on filedocumented in this encounter Additional Health Concerns Assessment Noted Time PHQ-9 Depression Total Score: 0 05/30/19 23 3:26 PM EDT documented as of this encounter Care Teams School Library Media Program Director Relationship Specialty Start Date End Date Maddie Kim MD [address] [place] [phone] PCP - General Family Medicine 07/12/20 Willie Gage 01/17/22 01/05/25 [facility] 12/25/24 documented as of this encounter
--- OUTSIDE RECORDS SUMMARY | 2025-01-23 19:02 | XMS_ITS | Encounter Summary ---
Author Organization [employer] Address [address] [place] [address] 7t [place] [address] Care Team Providers Care Inside Sales Executive Name Role Phone Maddie Kim MD Primary Care Provider [phone] Encounter Details Date Type Department Care Team ([facility] st Contact Info) Description 03/19/2023 Orders Only [facility] [address] [place], [place] [phone] Maddie Kim MD [address] [place], [place] [phone] Herniated lumbar intervertebral disc (Primary Dx) Social [...] Description 03/27/2025 1:30 PM EST Office Visit [facility] [address] [place] [address] Maddie Kim MD [address] [place] [address] documented as of this encounter Visit Diagnoses Diagnosis Herniated lumbar intervertebral disc- Primary Displacement of lumbar intervertebral disc without myelopathy documented in this encounter Additional Health Concerns Assessment Noted Time PHQ-9 Depression Total Score: 0 05/30/19 23 3:26 PM EDT documented as of this encounter Care Teams Inside Sales Executive Relationship Specialty Start Date End Date Maddie Kim MD [address] [place] [address] PCP - General Family Medicine 07/12/20 Willie Gage 01/17/22 01/05/25 [facility] 12/25/24 documented as of this encounter
--- OUTSIDE RECORDS SUMMARY | 2025-01-23 19:02 | XMS_ITS | Continuity of Care Document ---
Author Organization [facility], [facility] Address [address] [place] [address] Care Team Providers Care Funeral Director'S Assistant Name Role Phone JEAN-PIERRE MASON Primary Care [...] By Organization Details Last Modified Time 10/24/2024 [id number] 3 weeks of Left Knee PROM motion: flexion: passive motion, left (125 degrees) Not available Not available Not available 3 weeks of Left Knee PROM motion: extension: passive motion, left (0 degrees) Not available Not available Not available half-way goal of Left Knee Strength (normal) strength: knees: flexion: left 5 (0-5) Not available Not available Not available rat exterminator goal of Left Knee Strength (normal) strength: knees: extension: left 5 (0-5) Not available Not available Not available 3 weeks of Overall ADL's WFL Not available Not available Not available half-way goal of Overall ADL's unlimited Not available Not available Not available half-way goal of Squatting performs without symptoms Not available Not available Not available 3 weeks of Gait and Stance: on level surfaces Not available Not available Not available half-way goal of Gait and Stance: ambulates with no assitive devices Not available Not available Not available 3 weeks of Stairs step-to pattern Not available Not available Not available 3 weeks of Pain <2-3/10 Not available Not available Not available rat exterminator goal of Pain 0/10 Not available Not available Not available rat exterminator goal of Stair climbing (ascending and descending stairs) reciprocally Not available Not available Not available Patient InstructionsNo instructions recorded. Reason for Referral None Reported. Problems Name Problem SNOMED Code Status Onset Date Resolution Date Notes Provider Name and Address Organization Details Recorded Time No complaints 489290495 Active Status : 'I'; Not Available [facility] 4 09:21:06 Mass of joint of left wrist 5627209456141 9101 Active 2023 Cammy Ovalle, OTR/L,CHT [address], [place], [address] , [facility] 4 09:39:49 Fracture of ankle 72170952 Active 2023 KIM brunson [facility] 4 15:14:42 Postoperat laurence pain 683423727 Active 2024 Huma Augustin APRN [address], [place], [address] , [facility] 5 10:10:16 Problem Notes None recorded. Procedures Surgical History Date Name Laterality Status Provider Name and Address Organization Details Recorded Time 11/07/19 09806 Therapeutic Exercise (1:1) completed Julian Vera, PT [address], [place], [address], [facility] 11/09/2024 19:58:43 11/07/19 33229: Manual therapy completed Julian Vera, PT [address], [place], [address], [facility] 11/09/2024 19:58:43 10/25/19 28410 Therapeutic Exercise (1:1) completed Julian Vera, PT [address], [place], [address], [facility] 10/25/2024 23:06:22 10/25/19 27345: Manual therapy completed Julian Vera, PT [address], [place], [address], [facility] 10/25/2024 23:06:43 10/16/19 46941 Therapeutic Exercise (1:1) completed Krystina Galo, SOLAR DESIGNER [address], [place], [address], [facility] 10/16/2024 16:15:04 10/16/19 84669: Hot or Cold Pack completed Krystina Galo, SOLAR DESIGNER [address], [place], [address], [facility] 10/16/2024 16:15:20 10/11/19 59691 Therapeutic Exercise (1:1) completed Julian Vera, PT [address], [place], [address], [facility] 10/14/2024 07:11:36 10/11/19 30051: Low complexity PT Eval completed Julian Vera, PT [address], [place], [address], [facility] 10/14/2024 07:11:39 07/09/19 53904 Therapeutic Exercise (1:1) completed Na Gonzalez, SOLAR DESIGNER [address], [place], [address], [facility] 07/09/2024 21:36:12 07/09/19 03826: Neuromuscular Re-Education completed Na Gonzalez, SOLAR DESIGNER [address], [place], [address], [facility] 07/09/2024 21:40:29 07/04/19 74911: Therapeutic Activities (1:1) cancelled Hector Sams, PT [address], [place], [address], [facility] 07/02/2024 05:38:15 07/04/19 36915 Therapeutic Exercise (1:1) cancelled Hector Pyser, PT [address], [place], [address], [facility] 07/02/2024 05:38:15 07/04/19 46277: Manual therapy cancelled Hector Pyser, PT [address], [place], [address], [facility] 07/02/2024 05:38:15 07/01/19 51196: Therapeutic Activities (1:1) completed Hector Pyser, PT [address], [place], [address], [facility] 06/30/2024 10:41:35 07/01/19 07000 Therapeutic Exercise (1:1) completed Hector Pyser, PT [address], [place], [address], [facility] 06/30/2024 11:06:28 07/01/19 55188: Manual therapy completed Hector Pyser, PT [address], [place], [address], [facility] 06/30/2024 11:06:16 06/28/19 75742: Therapeutic Activities (1:1) cancelled Hector Pyser, PT [address], [place], [address], [facility] 06/26/2024 12:47:26 06/28/19 92361 Therapeutic Exercise (1:1) cancelled Hector Pyser, PT [address], [place], [address], [facility] 06/26/2024 12:47:26 06/28/19 25510: Manual therapy cancelled Hector Pyser, PT [address], [place], [address], [facility] 06/26/2024 12:47:26 06/25/19 41380: Therapeutic Activities (1:1) cancelled Hector Pyser, PT [address], [place], [address], [facility] 06/23/2024 16:32:14 06/25/19 98258 Therapeutic Exercise (1:1) cancelled Hector Pyser, PT [address], [place], [address], [facility] 06/23/2024 16:32:14 06/25/19 36260: Manual therapy cancelled Hector Pyser, PT [address], [place], [address], [facility] 06/23/2024 16:32:14 06/19/19 85759: Therapeutic Activities (1:1) completed Na Gonzalez, SOLAR DESIGNER [address], [place], [address], [facility] 06/18/2024 15:01:55 06/19/19 63588 Therapeutic Exercise (1:1) completed Na Gonzalez, SOLAR DESIGNER [address], [place], [address], [facility] 06/18/2024 15:01:55 06/19/19 13489: Manual therapy completed Na Gonzalez, SOLAR DESIGNER [address], [place], [address], [facility] 06/18/2024 15:01:55 06/13/19 79387: Therapeutic Activities (1:1) completed Na Gonzalez, SOLAR DESIGNER [address], [place], [address], [facility] 06/13/2024 07:27:56 06/13/19 12295 Therapeutic Exercise (1:1) completed Na Gonzalez, SOLAR DESIGNER [address], [place], [address], [facility] 06/13/2024 07:27:26 06/13/19 57038: Manual therapy completed Na Gonzalez, SOLAR DESIGNER [address], [place], [address], [facility] 06/13/2024 07:27:52 06/10/19 79577 Therapeutic Exercise (1:1) completed Hector Pyser, PT [address], [place], [address], [facility] 05/31/2024 14:22:51 06/10/19 20174: Low complexity PT Eval completed Hector Pyser, PT [address], [place], [address], [facility] 05/31/2024 14:22:53 05/01/19 59464 Therapeutic Exercise (1:1) completed Hector Pyser, PT [address], [place], [address], [facility] 04/29/2024 14:50:39 05/01/19 81776: Low complexity PT Eval completed Hector Pyser, PT [address], [place], [address], [facility] 04/29/2024 14:50:41 12/04/19 24 Sports Knee 4&1 completed Juancarlos Iyer PA-C [address], [place], [address], [facility] 12/04/2023 11:27:50 06/08/19 24 Splint_Short Arm Fiberglass_11+ completed JUNI SHELTON [facility] 06/08/2023 13:25:25 Imaging Results None recorded. Procedure Notes None recorded. Medical Equipment None Reported. Allergies Allergen ID Allergen Name Allergen Category Reaction Reaction Severity Criticality Documentation Date Start Date Code Code System Note Provider Name and Address Organization Details Recorded Time 259233 penicilli n G benzathin e medicatio n Not available Not available Not available 04/23/20232012 7982 RxNorm GOMEZ brunson [facility] 13:22:51 362696 Dilaudid medicatio n Not available Not available Not available 04/23/20232012 11692 3 RxNorm GOMEZ LAMA boy [place] - [facility] 4 13:22:48 394922 Bactrim medicatio n Not available Not available Not available 04/23/20232020 82730 9 RxNorm JACKIE CISNEROS boy [place] - [facility] 5 14:12:53 Medications Name Sig Start Date [...] Disease N Heart Trouble N Heart Attack ([place]) N Gastrointestinal Disease N Cholesterol N Diabetes [...] ICD10 Code Diagnosis IMO Codes Diagnosis Note [id number] Julian Vera, PT [facility] [address] [place] [address] 10/10/2024 15:00:25 10/10/2024 16:11:43 Pain of left knee joint 9863659583 08004 M25.562 040073 [id number] Krystina Clover, SOLAR DESIGNER [facility] [address] [place] [address] 10/15/2024 15:18:59 10/15/2024 15:59:03 Pain of left knee joint 8893343051 00072 M25.562 528967 [id number] Julian Vera, PT [facility] [address] [place] [address] 10/24/2024 15:07:10 10/24/2024 16:05:18 Pain of left knee joint 3786860298 92433 M25.562 705220 Health Concerns Section Related Observation LastModified by Organization Detai ls LastModified Time None Recorded Concern Status LastModified by Organization Details LastModified Time None Recorded Payers Encounter Date Sequence Insurance Name Policy Number Policy Fernandez Covered Member ID Fernandez Member ID Guarantor Name 10/24/2024 1 [facility] - DOS ON OR AFTER 2022 - ONE CARE (MEDICARE REPLACEMENT/ADV ANTAGE - HMO) Atiya Dotson [id number] Atiya Dotson Notes Date Note Type Note Provider Name and Address Organization Details Recorded Time 10/24/2024 text/html Pt reports L knee has buckled a few times today (not really sure why), and also reporting L knee is still getting sore. Julian Vera, PT [address], [place], [address], [facility] 10/25/2024 23:08:14 OBGyn Episode No OBEpisode recorded.
--- OUTSIDE RECORDS SUMMARY | 2025-01-23 19:02 | XMS_ITS | Encounter Summary ---
Author Organization [employer] Address [address] [place] [address] 7 [place] [address] Care Team Providers Care Floor Coverings Installer Name Role Phone Maddie Kim MD Primary Care Provider [phone] Reason for Visit * Reason Onset Date Comments Med Refill 05/10/2023 Encounter Details Date Type Department Care Team ([facility] st Contact Info) Description 05/10/2023 Refill [facility] [address] [place], [place] [phone] Maddie Kim MD [address] [place], [place] [phone] Chronic bilateral low back pain without sciatica [...] Description 03/27/2025 1:30 PM EST Office Visit [facility] [address] [place] [address] Maddie Kim MD [address] [place], [place] [phone] documented as of this encounter Visit Diagnoses Diagnosis Chronic bilateral low back pain without sciatica documented in this encounter Additional Health Concerns Assessment Noted Time PHQ-9 Depression Total Score: 0 05/30/19 23 3:26 PM EDT documented as of this encounter Care Teams Floor Coverings Installer Relationship Specialty Start Date End Date Maddie Kim MD [address] [place], [place] [phone] PCP - General Family Medicine 07/12/20 Willie Gage 01/17/22 01/05/25 [facility] 12/25/24 documented as of this encounter
--- OUTSIDE RECORDS SUMMARY | 2025-01-23 19:02 | XMS_ITS | Encounter Summary ---
Author Organization [employer] Address [address] [place] [address] 7t [place] [address] Care Team Providers Care Chief Legal Officer Name Role Phone Maddie Kim MD Primary Care Provider [phone] Encounter Details Date Type Department Care Team ([facility] st Contact Info) Description 06/13/2024 Orders Only [facility] [address] [place], [place] [phone] Maddie Kim MD [address] [place], [place] [phone] Social History Tobacco Use Types Packs/Day Years [...] 03/27/2025 1:30 PM EST Office Visit [facility] [address] [place] [address] Maddie Kim MD [address] [place] [address] documented as of this encounter Visit Diagnoses Not on filedocumented in this encounter Additional Health Concerns Assessment Noted Time PHQ-9 Depression Total Score: 3 06/15/19 24 11:48 AM EDT documented as of this encounter Care Teams Chief Legal Officer Relationship Specialty Start Date End Date Maddie Kim MD [address] [place] [address] PCP - General Family Medicine 07/12/20 Willie Gage 01/17/22 01/05/25 [facility] 12/25/24 documented as of this encounter
--- OUTSIDE RECORDS SUMMARY | 2025-01-23 19:02 | XMS_ITS | Encounter Summary ---
Author Organization [employer] Address [address] [place] [address] 7 [place] [address] Care Team Providers Care Hazmat Cdl A Driver Name Role Phone Maddie Kim MD Primary Care Provider [phone] Reason for Visit * Reason Onset Date Comments New Med Request 06/13/2024 Encounter Details Date Type Department Care Team ([facility] Contact Info) Description 06/13/2024 Telephone [facility] [address] [place], [place] [phone] Maddie Kim MD [address] [place], [place] [phone] New Med Request Social History Tobacco Use [...] EDT TC placed to Lauren (Visiting Nurse) [phone] regarding below message. Lauren informed RN that [...] Vitamin D-3 If any questions please contact [phone] documented in this encounter Plan of Treatment Upcoming Encounters Date Type Department Care Team (Late st Contact Info) Description 03/27/2025 1:30 PM EST Office Visit [facility] [address] [place], [place] [phone] Maddie Kim MD [address] [place] [address] documented as of this encounter Visit Diagnoses Not on filedocumented in this encounter Additional Health Concerns Assessment Noted Time PHQ-9 Depression Total Score: 3 06/15/19 24 11:48 AM EDT documented as of this encounter Care Teams Hazmat Cdl A Driver Relationship Specialty Start Date End Date Maddie Kim MD [address] [place] [address] PCP - General Family Medicine 07/12/20 [facility] 01/17/22 01/05/25 [facility] 12/25/24 documented as of this encounter
--- OUTSIDE RECORDS SUMMARY | 2025-01-23 19:02 | XMS_ITS | Encounter Summary ---
Author Organization [employer] Address [address] [facility] 7t [place] [address] Care Team Providers Care Rn Critical Care Name Role Phone Maddie Kim MD Primary Care Provider [phone] Reason for Visit * Reason Onset Date Comments Med Refill 02/14/2023 Encounter Details Date Type Department Care Team ([facility] Contact Info) Description 02/14/2023 Refill [facility] [address] [place] [address] [phone] Maddie Kim MD [address] [place], [place] [phone] Social History Tobacco Use Types Packs/Day Years [...] Description 03/27/2025 1:30 PM EST Office Visit [facility] [address] [place] [phone] Maddie Kim MD [address] [place], [place] [phone] documented as of this encounter Visit Diagnoses Not on filedocumented in this encounter Additional Health Concerns Assessment Noted Time PHQ-9 Depression Total Score: 0 05/30/19 23 3:26 PM EDT documented as of this encounter Care Teams Rn Critical Care Relationship Specialty Start Date End Date Maddie Kim MD [address] [place] [address] [phone] PCP - General Family Medicine 07/12/20 Willie Gage 01/17/22 01/05/25 [facility] 12/25/24 documented as of this encounter
--- OUTSIDE RECORDS SUMMARY | 2025-01-23 19:02 | XMS_ITS | Encounter Summary ---
Author Organization [employer] Address [address] [place] [address] 7 [place] [address] Care Team Providers Care Human Relations Manager Name Role Phone Maddie Kim MD Primary Care Provider [phone] Reason for Visit * Reason Onset Date Comments Med Refill 03/19/2023 Encounter Details Date Type Department Care Team ([facility] Contact Info) Description 03/19/2023 Telephone [facility] [address] [place], [place] [phone] Maddie Kim MD [address] [place], [place] [phone] Med Refill Social History Tobacco Use Types [...] Pt agrees. MD Maddie Saravia RN; [facility] Team Nurses Caller: Unspecified (2 weeks ago) I wrote her a work excuse extending her time for remote work until 04/05/23 * Telephone Encounter - Maddie Crawford RN - 04/02/2023 3:02 PM EST Images from the original note were not included. Triage call regarding Pt portal message below. Pt continues to have symptoms of Covid. Pt was seen in [facility] 03/29/[address] Gonzalez and dx [...] better sooner [facility]. Advised Pt will send this request [...] - Diagnosed With COVID-19 by Doctor (or BILLING ADJUDICATOR/PA) and Mild Symptoms * General Care Advice for COVID-19 Symptoms * Humidifier * Coughing Spells * Pain and Fever Medicines * Mild Stomach and Intestinal Symptoms During COVID-19 Illness Atiya Johnson [facility] Clinial Support (supporting Lorrie Alaniz [...] Description 03/27/2025 1:30 PM EST Office Visit [facility] [address] [place] [address] Maddie Kim MD [address] [place] [address] documented as of this encounter Visit Diagnoses Not on filedocumented in this encounter Additional Health Concerns Assessment Noted Time PHQ-9 Depression Total Score: 0 05/30/19 23 3:26 PM EDT documented as of this encounter Care Teams Human Relations Manager Relationship Specialty Start Date End Date Maddie Kim MD [address] [place] [address] PCP - General Family Medicine 07/12/20 Willie Gage 01/17/22 01/05/25 [facility] 12/25/24 documented as of this encounter
--- OUTSIDE RECORDS SUMMARY | 2025-01-23 19:02 | XMS_ITS | Encounter Summary ---
Author Organization [employer] Address [address] [place] [address] 7 [place] [address] Care Team Providers Care Stator Tester Name Role Phone Maddie Kim MD Primary Care Provider [phone] Reason for Visit * Reason Comments Med Change Request Encounter Details Date Type Department Care Team ([facility] Contact Info) Description 07/25/2024 Refill [facility] [address] [place], [place] [phone] Maddie Kim MD [address] [place], [place] [phone] Social History Tobacco Use Types Packs/Day Years [...] [facility] [address] [place] [address] Maddie Kim MD [address] [place] [address] documented as of this encounter Visit Diagnoses Not on filedocumented in this encounter Additional Health Concerns Assessment Noted Time PHQ-9 Depression Total Score: 9 07/05/19 25 6:48 AM EDT documented as of this encounter Care Teams Stator Tester Relationship Specialty Start Date End Date Maddie Kim MD [address] [place] [address] PCP - General Family Medicine 07/12/20 Willie Gage 01/17/22 01/05/25 [facility] 12/25/24 documented as of this encounter
--- OUTSIDE RECORDS SUMMARY | 2025-01-23 19:02 | XMS_ITS | Encounter Summary ---
Author Organization [employer] Address [address] [place] [address] 7 [place] [address] Care Team Providers Care Technical Support Analyst Name Role Phone Maddie Kim MD Primary Care Provider [phone] Reason for Visit * Reason Onset Date Comments Hospital Follow-up 03/28/2024 Encounter Details Date Type Department Care Team ([facility] Contact Info) Description 03/28/2024 Telephone [facility] [address] [place], [place] [phone] Maddie Kim MD [address] [place], [place] [phone] Hospital Follow-up Social History Tobacco Use Types [...] from pt requesting a HDF appt. Hospital: [facility] Date of admission: 03/24/24 Discharge date: 03/27/24 Diagnosed: Hyponatremia *Send message to [place] Clinical Care Coordinators documented in this encounter Plan of Treatment Upcoming Encounters Date Type Department Care Team (Late st Contact Info) Description 03/27/2025 1:30 PM EST Office Visit [facility] [address] [place] [address] Maddie Kim MD [address] [place] [address] documented as of this encounter Visit Diagnoses Not on filedocumented in this encounter Additional Health Concerns Assessment Noted Time PHQ-9 Depression Total Score: 3 06/15/19 24 11:48 AM EDT documented as of this encounter Care Teams Technical Support Analyst Relationship Specialty Start Date End Date Maddie Kim MD [address] [place] [address] PCP - General Family Medicine 07/12/20 [facility] 01/17/22 01/05/25 [facility] 12/25/24 documented as of this encounter
--- OUTSIDE RECORDS SUMMARY | 2025-01-23 19:02 | XMS_ITS | Encounter Summary ---
Author Organization [employer] Address [address] [place] [address] 7 [place] [address] Care Team Providers Care Commercial Loan Coordinator Name Role Phone Maddie Kim MD Primary Care Provider Reason for Visit * Reason Onset Date Comments Med Refill 04/12/2023 Encounter Details Date Type Department Care Team ([facility] st Contact Info) Description 04/12/2023 Refill [facility] [address] [place], [place] [phone] Maddie Kim MD [address] [place], [place] [phone] Chronic bilateral low back pain without sciatica [...] 03/27/2025 1:30 PM EST Office Visit [facility] [address] [place] [address] Maddie Kim MD [address] [place] [address] documented as of this encounter Visit Diagnoses Diagnosis Chronic bilateral low back pain without sciatica documented in this encounter Additional Health Concerns Assessment Noted Time PHQ-9 Depression Total Score: 0 05/30/19 23 3:26 PM EDT documented as of this encounter Care Teams Commercial Loan Coordinator Relationship Specialty Start Date End Date Maddie Kim MD [address] [place] [address] PCP - General Family Medicine 07/12/20 [facility] 01/17/22 01/05/25 [facility] 12/25/24 documented as of this encounter
--- OUTSIDE RECORDS SUMMARY | 2025-01-23 19:02 | XMS_ITS | Encounter Summary ---
Author Organization [employer] Address [address] [place] [address] 7 [place] [address] Care Team Providers Care Delivery Clerk Name Role Phone Maddie Kim MD Primary Care Provider [phone] Reason for Visit * Reason Onset Date Comments Med Refill 01/14/2025 Encounter Details Date Type Department Care Team ([facility] Contact Info) Description 01/14/2025 Refill [facility] [address] [place], [place] [phone] Maddie Kim MD [address] [place], [place] [phone] Chronic midline low back pain without sciatica [...] 1:30 PM EST Office Visit [facility] [address] [place] [address] Maddie Kim MD [address] [place] [address] documented as of this encounter Visit Diagnoses Diagnosis Chronic midline low back pain without sciatica documented in this encounter Additional Health Concerns Assessment Noted Time PHQ-9 Depression Total Score: 10 025 3:49 PM EST documented as of this encounter Care Teams Delivery Clerk Relationship Specialty Start Date End Date Maddie Kim MD [address] [place] [address] PCP - General Family Medicine 07/12/20 [facility] 12/25/24 documented as of this encounter
--- OUTSIDE RECORDS SUMMARY | 2025-01-23 19:02 | XMS_ITS | Encounter Summary ---
Author Organization [employer] Address [address] [facility] 7t [place] [address] Care Team Providers Care Chief Lock Tender Operator Name Role Phone Maddie Kim MD Primary Care Provider [phone] Reason for Visit * Reason Comments Med Refill Encounter Details Date Type Department Care Team ([facility] st Contact Info) Description 04/12/2023 Refill [facility] [address] [place] [address] [phone] Isac Gonzalez MD [address] [place] [address] [phone] Chronic bilateral low back pain without sciatica [...] Description 03/27/2025 1:30 PM EST Office Visit [facility] [address] [place] [address] Maddie Kim MD [address] [place] [address] documented as of this encounter Visit Diagnoses Diagnosis Chronic bilateral low back pain without sciatica documented in this encounter Additional Health Concerns Assessment Noted Time PHQ-9 Depression Total Score: 0 05/30/19 23 3:26 PM EDT documented as of this encounter Care Teams Chief Lock Tender Operator Relationship Specialty Start Date End Date Maddie Kim MD [address] [place] [address] PCP - General Family Medicine 07/12/20 [facility] 01/17/22 01/05/25 [facility] 12/25/24 documented as of this encounter
--- OUTSIDE RECORDS SUMMARY | 2025-01-23 19:03 | XMS_ITS | Encounter Summary ---
Author Organization [employer] Address [address] [place] [address] 7 [place] [address] Care Team Providers Care Water Quality Specialist Name Role Phone Maddie Kim MD Primary Care Provider Reason for Referral * Consultation (Routine) - Closed Specialty Diagnoses / Procedures Referred By Sindi mejia Referred To Contact Physical Therapy Diagnoses Cervical spine pain Maddie Kim MD [address] [place] [address] Phone: tel: fax: AT Physical Therapy - [address] [address] Phone: tel: fax: Referral ID Status Reason Start Date Expiration Date V isits Requested Visits Authorized [id number] Closed Specialty Services Required 10/17/2024 10/17/2025 1 1 Encounter Details Date Type Department Care Team (Late st Contact Info) Description 10/17/2024 Orders Only [facility] MED[facility]INE [address] [place] [address] Maddie Kim MD [address] [place], [place] [phone] Cervical spine pain (Primary Dx) Social History [...] Visit [facility] [address] [place] [address] Maddie Kim MD [address] [place] [address] Scheduled Referrals Name Type Priority Associated Diagnoses [...] as of this encounter Care Teams Water Quality Specialist Relationship Specialty Start Date End Date Maddie Kim MD 230 [facility] [place] [address] PCP - General Family Medicine 07/12/20 [facility] 01/17/22 01/05/25 [facility] 12/25/24 documented as of this encounter
--- OUTSIDE RECORDS SUMMARY | 2025-01-23 19:03 | XMS_ITS | Continuity of Care Document ---
Author Organization [employer] [facility] Address [address] [place] [address] Care Team Providers Care Mixer Tender Name Role Phone HIM CCA OTHER Unavailable Primary Care Provider [phone] Assessment Encounter Date Assessment Date Assessment LastModified by Organization Details LastModified Time 10/26/2024 10/26/2024 I provided real -time medical direction via phone for this encounter, and was available for additional phone based assistance as needed. I have reviewed and agree with the Assessment and Plan as documented by the Senior Outside Sales Representative. We discussed the diagnostic uncertainty of home [...] to call 911- verbalized understanding of instruction [email or web address] Not available 10/26/2024 18:03:11 Plan of Treatment Reminders Order Date Submit Date Provider Last Modified By Organization Details Last Modified Time Details Appointments None recorded. Lab None recorded. Referral None recorded. Procedures None recorded. Surgeries None recorded. Imaging None recorded. Medication Orders ketorolac 30 mg/mL injection solution 2024 025 [email or web address] [facility], [address] [place] [address], [id number], 17:39:06 Patient TargetsNo targets recorded. Patient InstructionsNo [...] Name and Address Organization Details Recorded Time 05345 Dilantin medicatio n Not available Not available Not available 02/22/2024 0 RxNorm Not Available [facility] - production 14:48:20 38989 sulfameth oxazole medicatio n Not available Not available Not available 02/22/2024 07609 RxNorm Not Available [facility] 5 14:48:20 54456 trimethop rim medicatio n Not available Not available Not available 02/22/2024 44426 Rx[facility] Not Available [facility] 5 10:23:13 47104 Product containin g penicilli n (product) medicatio n Not available Not available Not available 02/22/2024 17186 8001 SNOMED Not Available [facility] - [facility] 5 14:48:20 94761 penicilli n G benzathin e medicatio n Not available Not available Not available 02/22/2024 7982 RxNorm Not Available [facility] - production 5 14:48:20 23556 penicilli n G procaine medicatio n Not available Not available Not available 02/22/2024 7983 RxNorm Not Available [facility] - [facility] 5 14:48:20 88084 Non-stero idal anti-infl ammatory agent (substanc e) medicatio n other Not available [facility] 10/06/2024 85059 5008 SNOMED H/o GIB and gastr ic ulcer s with all NSAID s - told not to take Fawn Coelho MD [address] [facility],[address], [place], [phone], CORRIE - ARIELLE GARCIA 5 15:15:41 [...] 5 98.1 [degF] 157.48 cm 16 /min 29508.4 8 g 73 /min 99 % 158/84 [...] ICD10 Code Diagnosis IMO Codes Diagnosis Note [id number] RHEA POLLARD MD [facility] [address] [address] 10/05/2024 14:54:45 10/06/2024 20:52:55 Spasm of back muscles [id number] M62.830 [id number] Fawn Coelho MD [facility] [address] [address] 10/06/2024 14:54:22 10/06/2024 21:05:01 Low back pain [id number] M54.50 [id number] TRISTON LOJA NP, S [facility] [address] [address] 10/26/2024 17:36:16 10/27/2024 15:59:17 Acute low back pain [id number] M54.50 [id number] Health Concerns Section Related Observation LastModified by Organization Detai ls LastModified Time None Recorded Concern Status LastModified by Organization Details LastModified Time None Recorded Payers Encounter Date Sequence Insurance Name Policy Number Policy Fernandez Covered Member ID Fernandez Member ID Guarantor Name 10/26/2024 1 [facility] - DOS ON OR AFTER 2022 - DUAL ELIGIBLE - FDC OPTIONS AND ONE CARE (MEDICARE REPLACEMENT/ADV ANTAGE - HMO) Atiya Dotson [id number] Atiya Dotson Notes Date Note Type Note [...] ...................... ...................... ...................... ...................... ...................... ...................... ......... Senior Outside Sales Representative Note From Vaughn Ellington: SC6 responds to [...] no bladder or bowel incontinence is reported. [facility] obtains a focused assessment on pt's back. No visible or gross abnormalities are noted and pt has full ROM w/ some pain relief w/ back extension. Tenderness upon palpation to the paraspinous regions L and R of L2-L5. No discoloration, bruising, or rash are noted and area is normothermic to touch. [facility] discusses using cold packs and moist heat as well as a topical analgesic to help w/ the pain. [facility] contacts [facility] and discusses the above. After confirming no known kidney issues, GI bleeds, or anticoagulation and reconfirming allergies, [facility] orders 15mg toradol IM and recommends pt contact her PCP. [facility] administers 15mg toradol in the R deltoid using aseptic technique. Red flag warning signs are discussed w/ the pt and she thanks [facility] for coming. [facility] is clear. Report completed by FAVIO Ellington [id number]. [facility] Medication Orders: ketorolac 30 mg/mL injection solution: Administered Comment: R deltoid ...................... ...................... ...................... ...................... ...................... ...................... ......... [facility] Consulted: Triston Loja ...................... ...................... ...................... ...................... ...................... ...................... ......... Disposition: Fulfilled TRISTON LOJA NP, S [address] [facility],[address], [place], [address], ARIELLE CHRISTIANSEN 10/26/2024 18:18:44 OBGyn Episode No OBEpisode recorded.
--- OUTSIDE RECORDS SUMMARY | 2025-01-23 19:03 | XMS_ITS | Encounter Summary ---
Author Organization [employer] Address [address] [place] [address] 7 [place] [address] Care Team Providers Care Miniature Set Builder Name Role Phone Maddie Kim MD Primary Care Provider [phone] Reason for Visit * Reason Onset Date Comments Prior Authorization 05/19/2024 Encounter Details Date Type Department Care Team ([facility] Contact Info) Description 05/19/2024 Telephone [facility] MEDICINE [address] [place] [address] [phone] Maddie Kim MD [address] [place], [place] [phone] Prior Authorization Social History Tobacco Use Types [...] Tirzepatide-Weight Management (Zepbound) 2.5 MG/0.5ML solution auto-injector. Move Coordinator advise pt 7-14 business days. Pt verbalized [...] re fax it over. Contact pt at [phone] documented in this encounter Plan of Treatment Upcoming Encounters Date Type Department Care Team (Late st Contact Info) Description 03/27/2025 1:30 PM EST Office Visit [facility] MEDICINE [address] [place] [address] Maddie Kim MD [address] [place] [address] documented as of this encounter Visit Diagnoses Not on filedocumented in this encounter Additional Health Concerns Assessment Noted Time PHQ-9 Depression Total Score: 3 06/15/19 24 11:48 AM EDT documented as of this encounter Care Teams Miniature Set Builder Relationship Specialty Start Date End Date Maddie Kim MD [address] [place] [address] PCP - General Family Medicine 07/12/20 [facility] 01/17/22 01/05/25 [facility] 12/25/24 documented as of this encounter
== END 2025-01-23 16:22 | disposition left against medical advice (07) ==
PROVIDERS: Emergency Provider Emergency Medicine; PCP General Practice
DX: M54.50 Low back pain, unspecified (principal); Z79.899 Other long term (current) drug therapy; F17.210 Nicotine dependence, cigarettes, uncomplicated
CPT/HCPCS: 99281; 99283

== ENCOUNTER 2025-02-04 09:48 | Outpatient (REF) | payer OTHER, SELFPAY ==
--- OUTSIDE RECORDS SUMMARY | 2025-02-04 09:20 | XMS_ITS | Encounter Summary ---
Author Organization [employer] Address [address] [facility] 7t [place] [address] Care Team Providers Care Leach Cell Operator Name Role Phone Maddie Kim MD Primary Care Provider [phone] Reason for Visit * Reason Comments Dizziness Encounter Details Date Type Department Care Team ([facility] Contact Info) Description 02/04/2025 9:20 AM EST Office Visit [facility] [address] [place] [address] Elevated blood pressure reading in office without diagnosis of hypertension (Primary Dx); Fatigue, unspecified type; Vomiting and diarrhea Social History Tobacco Use Types Packs/Day Years Used Date Smoking Tobacco: Former Cigarettes 0.5 26 S tarted: 02/19/1999 Passive Smoke Exposure: Past [...] Sign Reading Time Taken Comments Blood Pressure 131/90 02/04/2025 9:05 AM EST Pulse 81 02/04/2025 9:05 AM EST Temperature 36.4 C (97.5 F) 02/04/2025 9:05 AM EST Respiratory Rate 16 02/04/2025 9:05 AM EST Oxygen Saturation 98% 02/04/2025 9:05 AM EST Inhaled Oxygen Concentration - - Weight - - Height - - Body Mass Index - - documented in this encounter Plan of Treatment Upcoming Encounters Date Type Department Care Team (Late st Contact Info) Description 03/27/2025 1:30 PM EST Office Visit [facility] [address] [place] [address] Maddie Kim MD [address] [place] [address] Scheduled Orders Name Type Priority Associated Diagnoses Order Schedule POCT Rapid Influenza A HARRIS ID NOW Point of Care Testing Routine Fatigue, unspecified type Vomiting and diarrhea Ordered: 02/04/2025 POCT Rapid Influenza B HARRIS ID NOW Point of Care Testing Routine Fatigue, unspecified type Vomiting and diarrhea Ordered: 02/04/2025 POCT Rapid COVID-19 Harris NOW Point of Care Testing Routine Fatigue, unspecified type Vomiting and diarrhea Ordered: 02/04/2025 Basic Metabolic Panel Lab Routine Fatigue, unspecified type Vomiting and diarrhea Expected: 02/04/2025 (Approximate), Expires: 02/04/2026 CBC auto differential Lab Routine Fatigue, unspecified type Vomiting and diarrhea Expected: 02/04/2025 (Approximate), Expires: 02/04/2026 Helicobacter pylori Antigen, EIA, Stool Lab Routine Vomiting and diarrhea Expected: 02/04/2025 (Approximate), Expires: 02/04/2026 CDiff Gene PCR Lab Routine Vomiting and diarrhea Expected: 02/04/2025 (Approximate), Expires: 02/04/2026 Gastrointestinal panel Microbiology Routine Vomiting and diarrhea Expected: 02/04/2025 (Approximate), Expires: 02/04/2026 Ova and Parasites, Concentrate and Permanent Smear Microbiology Routine Vomiting and diarrhea Expected: 02/04/2025 (Approximate), Expires: 02/04/2026 documented as of this encounter Visit Diagnoses Diagnosis Elevated blood pressure reading in office without diagnosis of hypertension- Primary Fatigue, unspecified type Vomiting and diarrhea documented in this encounter Additional Health Concerns Assessment Noted Time PHQ-9 Depression Total Score: 10 025 3:49 PM EST documented as of this encounter Care Teams Leach Cell Operator Relationship Specialty Start Date End Date Maddie Kim MD [address] [place] [address] PCP - General Family Medicine 07/12/20 [facility] 12/25/24 documented as of this encounter
[2025-02-04 11:31] LABS: MANUAL DIFF FLAG NO
[2025-02-04 11:39] LABS: Hematocrit 38.5 % (37.0-47.0); Hemoglobin 11.9 g/dl (12.0-16.0); Imm Gran Abs Auto 0.01 X10*3/uL (0.00-0.03); Imm Gran Pct Auto 0.1 % (0.0-0.4); Lymphocytes Absolute Auto 1.5 X10*3/uL (1.2-4.9); Mean Corpuscular HGB Conc 30.9 g/dl (31.0-35.0); Mean Corpuscular Hemoglobin 24.9 pg (27.0-33.0); Mean Corpuscular Volume 80.7 fL (80.0-98.0); NRBC Abs Auto 0.000 X10*3/uL (0.0-0.012); NRBC Pct Auto 0.0 /100WBC (0.0-0.2); Platelet Count 272 X10*3/uL (160-400); Red Blood Count 4.77 X10*6/uL (4.20-5.50); White Blood Count 7.0 X10*3/uL (4.8-10.8)
--- OUTSIDE RECORDS SUMMARY | 2025-02-04 11:40 | XMS_ITS | Encounter Summary ---
Author Organization [employer] Address [address] [place] [address] 7 [place] [address] Care Team Providers Care Process Controls Technician Name Role Phone Maddie Kim MD Primary Care Provider [phone] Reason for Visit * Reason Comments Med Refill Encounter Details Date Type Department Care Team ([facility] Contact Info) Description 12/25/2024 Refill [facility] MEDICINE [address] [place], [place] [phone] Maddie Kim MD 230 [place], [place] [phone] Social History Tobacco Use Types Packs/Day Years [...] Description 03/27/2025 1:30 PM EST Office Visit [facility] MED[facility]INE [address] [place] [address] Maddie Kim MD [address] [place] [address] documented as of this encounter Visit Diagnoses Not on filedocumented in this encounter Additional Health Concerns Assessment Noted Time PHQ-9 Depression Total Score: 9 07/05/19 25 6:48 AM EDT documented as of this encounter Care Teams Process Controls Technician Relationship Specialty Start Date End Date Maddie Kim MD [address] [place] [address] PCP - General Family Medicine 07/12/20 [facility] 01/17/22 01/05/25 [facility] 12/25/24 documented as of this encounter
--- OUTSIDE RECORDS SUMMARY | 2025-02-04 11:40 | XMS_ITS | Encounter Summary ---
Author Organization [employer] Address [address] [place] [address] 7t [place] [address] Care Team Providers Care Exercise Specialist Name Role Phone Maddie Kim MD Primary Care Provider [phone] Encounter Details Date Type Department Care Team ([facility] Contact Info) Description 12/24/2024 Orders Only [facility] MEDICINE [address] [place], [place] [phone] Maddie Kim MD 230 [place], [place] [phone] Social History Tobacco Use Types Packs/Day Years [...] Description 03/27/2025 1:30 PM EST Office Visit [facility] MEDICINE [address] [place] [address] Maddie Kim MD [address] [place] [address] documented as of this encounter Visit Diagnoses Not on filedocumented in this encounter Additional Health Concerns Assessment Noted Time PHQ-9 Depression Total Score: 9 07/05/19 25 6:48 AM EDT documented as of this encounter Care Teams Exercise Specialist Relationship Specialty Start Date End Date Maddie Kim MD [address] [place] [address] PCP - General Family Medicine 07/12/20 [facility] 01/17/22 01/05/25 [facility] 12/25/24 documented as of this encounter
--- OUTSIDE RECORDS SUMMARY | 2025-02-04 11:40 | XMS_ITS | Encounter Summary ---
Author Organization [employer] Address [address] [facility] 7t [place] [address] Care Team Providers Care Cash Management Associate Name Role Phone Maddie Kim MD Primary Care Provider [phone] Encounter Details Date Type Department Care Team ([facility] Contact Info) Description 02/04/2025 Telephone [facility] [address] [place], [place] [phone] Sandro Chew MD [address] [place] [address] Social History Tobacco Use Types Packs/Day Years [...] encounter Miscellaneous Notes * Telephone Encounter - Malou Joel RN - 02/04/2025 9:08 AM EST Assessment: Patient presents to [facility] c/o dizziness, light head, week, nauseous, vomit once this am. Symptoms have been present for yesterday, pt has history of hyponatremia worried about Na levels. Patinet drink gatorade for sodium per kidney doctor. Symptoms are constant. VS as follows (if applicable): Temp 97.7 orally HR 81 Resp 16 BP 131/90 left Arm; Device: Automatic Cuff Size: regular O2 sat 100 % on room air Allergies[1] Current Medications[2] Plan of care: Report to Dr Chew Provider evaluation: Yes Malou Joel RN [1] Allergies Allergen Reactions Sulfamethoxazole Anaphylaxis Trimethoprim Anaphylaxis [...] hives Got hives Other reaction(s): Throat swelling [2] Current Outpatient Medications Medication Sig Dispense Refill albuterol 108 (90 Base) MCG/ACT inhaler Inhale 2 puffs every 6 (six) hours if needed for wheezing. 18 g 11 baclofen (Lioresal) 10 MG tablet Take 1 tablet (10 mg) by mouth if needed in the morning, at noon, and at bedtime for muscle spasms. 90 tablet 0 Blood Pressure Monitoring (Blood Pressure Cuff) misc 1 each Once per day. 1 each 0 Blood Pressure Monitoring (Omron 3 Series BP Monitor) device USE TO CHECK BLOOD PRESSURE ONCE DAILY buPROPion SR (Wellbutrin SR) 100 MG 12 hr tablet celecoxib (CeleBREX) 200 MG capsule Take 200 mg by mouth Once per day. cholecalciferol (Vitamin D-3) 50 MCG (2000 UT) capsule Take 1 capsule (50 mcg) by mouth Once per day. 90 capsule 3 clindamycin (Cleocin) 300 MG capsule TAKE 2 CAPSULES BY MOUTH 1/2 HOUR PRIOR TO DENTAL APPOINTMENT clonazePAM (KlonoPIN) 0.5 MG tablet cyclobenzaprine (Flexeril) 5 MG tablet Take 1 tablet (5 mg) by mouth if needed in the morning, at noon, and at bedtime for muscle spasms. TAKE 1 TABLET BY MOUTH THREE TIMES A DAY 90 tablet 0 divalproex (Depakote) 500 MG EC tablet Take 1,000 mg by mouth 2 times daily. docusate sodium (Colace) 100 MG capsule TAKE 1 CAPSULE BY MOUTH TWICE A DAY 180 capsule 1 Emollient (Minerin) lotion APPLY TOPICALLY 2-3 TIMES A DAY NEEDED FOR DRY SKIN 473 mL 4 EPINEPHrine (Epipen) 0.3 MG/0.3ML injection syringe ferrous gluconate (Fergon) 324 (38 Fe) MG tablet Take 1 tablet (324 mg) by mouth with breakfast. 90tablet 3 gabapentin (Neurontin) 800 MG tablet hydrocortisone 2.5 % cream Apply topically 2 times daily. 28 g 1 minoxidil (Loniten) 2.5 MG tablet Take 0.5 tablets by mouth Once per day. nicotine (Nicoderm, Step 1) 21 MG/24HR patch Place 1 patch on the skin 1 (one) time each day at thesanv time. omeprazole (PriLOSEC) [address] capsule TAKE 1 CAPSULE BY MOUTH BEFORE BREAKFAST 90 capsule 3 paliperidone palmitate ER (Invega Sustenna) 234 MG/1.5ML suspension prefilled syringe Inject 1.5 mLinto the muscle every 30 (thirty) days. polyethylene glycol, PEG, 3350 (GaviLAX) 17 GM/SCOOP powder Take 17 g by mouth Once per day. 510 g 2 prazosin (Minipress) 2 MG capsule prazosin (Minipress) 5 MG capsule Take 1 capsule by mouth at bed time. propranolol (Inderal) 10 MG tablet psyllium (Hydrocil) 95 % packet Take 1 packet by mouth Once per day. Mix and drink with at least 8 ounces of water or juice. QUEtiapine (SEROquel) 25 MG tablet QUEtiapine (SEROquel) 50 MG tablet Take 1 tablet by mouth at bedtime. And 1 tab once daily as needed Tirzepatide-Weight Management (Zepbound) 15 MG/0.5ML solution auto-injector Inject 0.5 mL (15 mg) under the skin 1 (one) time per week. 2 mL 5 topiramate 50 MG tablet Take 1 tablet by mouth Once per day. traZODone (Desyrel) 100 MG tablet traZODone (Desyrel) 50 MG tablet Vraylar 1.5 MG capsule witch james-glycerin (Tucks) pad Apply topically if needed for irritation. 40 each 1 No current facility-administered medications for this visit. documented in this encounter Plan of Treatment Upcoming Encounters Date Type Department Care Team (Late st Contact Info) Description 03/27/2025 1:30 PM EST Office [facility] [address] [place] [address] Maddie Kim MD [address] [place], [place] [phone] documented as of this encounter Visit Diagnoses Not on filedocumented in this encounter Additional Health Concerns Assessment Noted Time PHQ-9 Depression Total Score: 10 025 3:49 PM EST documented as of this encounter Care Teams Cash Management Associate Relationship Specialty Start Date End Date Maddie Kim MD [address] [place] [address] PCP - General Family Medicine 07/12/20 [facility] 12/25/24 documented as of this encounter
--- OUTSIDE RECORDS SUMMARY | 2025-02-04 11:40 | XMS_ITS | Encounter Summary ---
Author Organization [employer] Address [address] [place] [address] 7 [place] [address] Care Team Providers Care Nail Technician Teacher Name Role Phone Maddie Kim MD Primary Care Provider [phone] Reason for Visit * Reason Onset Date Comments Med Refill 04/12/2023 Encounter Details Date Type Department Care Team ([facility] st Contact Info) Description 04/12/2023 Refill [facility] [address] [place], [place] [phone] Maddie Kim MD 230 [place], [place] [phone] Chronic bilateral low back pain without sciatica Social History Tobacco Use Types Packs/Day Years Used Date Smoking Tobacco: Former Cigarettes 0.3 26 S tarted: 02/19/1999 Passive Smoke Exposure: [...] 1:30 PM EST Office Visit [facility] [address] [place] [phone] Maddie Kim MD [address] [place] [phone] documented as of this encounter Visit Diagnoses Diagnosis Chronic bilateral low back pain without sciatica documented in this encounter Additional Health Concerns Assessment Noted Time PHQ-9 Depression Total Score: 0 05/30/19 23 3:26 PM EDT documented as of this encounter Care Teams Nail Technician Teacher Relationship Specialty Start Date End Date Maddie Kim MD [address] [place] [phone] PCP - General Family Medicine 07/12/20 [facility] 01/17/22 01/05/25 [facility] 12/25/24 documented as of this encounter
--- OUTSIDE RECORDS SUMMARY | 2025-02-04 11:40 | XMS_ITS | Encounter Summary ---
Author Organization [employer] Address [address] [facility] 7t [place] [address] Care Team Providers Care Vault Cashier Name Role Phone Maddie Kim MD Primary Care Provider [phone] Reason for Visit * Reason Comments Med Refill Encounter Details Date Type Department Care Team ([facility] st Contact Info) Description 04/12/2023 Refill [facility] [address] [place] [address] [phone] Isac Gonzalez MD [address] [place] [address] [phone] Chronic bilateral low back pain without sciatica [...] 1:30 PM EST Office Visit [facility] [address] [place] [phone] Maddie Kim MD [address] [place] [address] [phone] documented as of this encounter Visit Diagnoses Diagnosis Chronic bilateral low back pain without sciatica documented in this encounter Additional Health Concerns Assessment Noted Time PHQ-9 Depression Total Score: 0 05/30/19 23 3:26 PM EDT documented as of this encounter Care Teams Vault Cashier Relationship Specialty Start Date End Date Maddie Kim MD [address] [place] [address] [phone] PCP - General Family Medicine 07/12/20 [facility] 01/17/22 01/05/25 [facility] 12/25/24 documented as of this encounter
--- OUTSIDE RECORDS SUMMARY | 2025-02-04 11:40 | XMS_ITS | Encounter Summary ---
Author Organization [email or web address] Address [address] [facility] 7t [place] [address] Care Team Providers Care Acting Manager Name Role Phone Maddie Kim MD Primary Care Provider [phone] Reason for Visit * Reason Comments Med Refill Encounter Details Date Type Department Care Team ([facility] st Contact Info) Description 04/12/2023 Refill [facility] [address] [place] [address] [phone] Isac Gonzalez MD [address] [place] [address] [phone] Chronic bilateral low back pain without sciatica [...] Description 03/27/2025 1:30 PM EST Office Visit [facility] [address] [place] [phone] Maddie Kim MD [address] [place] [address] [phone] documented as of this encounter Visit Diagnoses Diagnosis Chronic bilateral low back pain without sciatica documented in this encounter Additional Health Concerns Assessment Noted Time PHQ-9 Depression Total Score: 0 05/30/19 23 3:26 PM EDT documented as of this encounter Care Teams Acting Manager Relationship Specialty Start Date End Date Maddie Kim MD [address] [place] [address] [phone] PCP - General Family Medicine 07/12/20 [facility] 01/17/22 01/05/25 [facility] 12/25/24 documented as of this encounter
--- OUTSIDE RECORDS SUMMARY | 2025-02-04 11:40 | XMS_ITS | Encounter Summary ---
Author Organization [employer] Address [address] [place] [address] 7t [place] [address] Care Team Providers Care Health Administrator Name Role Phone Maddie Kim MD Primary Care Provider [phone] Encounter Details Date Type Department Care Team ([facility] st Contact Info) Description 12/22/2024 Telephone [facility] [address] [place], [place] [phone] Maddie Kim MD [address] [place], [place] [phone] Social History Tobacco Use Types Packs/Day Years [...] Visit [facility] [address] [place] [address] Maddie Kim MD [address] [place] [address] documented as of this encounter Visit Diagnoses Not on filedocumented in this encounter Additional Health Concerns Assessment Noted Time PHQ-9 Depression Total Score: 9 07/05/19 25 6:48 AM EDT documented as of this encounter Care Teams Health Administrator Relationship Specialty Start Date End Date Maddie Kim MD [address] [place] [address] PCP - General Family Medicine 07/12/20 [facility] 01/17/22 01/05/25 [facility] 12/25/24 documented as of this encounter
--- OUTSIDE RECORDS SUMMARY | 2025-02-04 11:40 | XMS_ITS | Encounter Summary ---
Author Organization [employer] Address [address] [place] [address] 7t [place] [address] Care Team Providers Care Supervisor [employer] Name Role Phone Maddie Kim MD Primary Care Provider [phone] Encounter Details Date Type Department Care Team ([facility] Contact Info) Description 08/10/2024 Orders Only [facility] [address] [place], [place] [phone] Maddie Kim MD [address] [place], [place] [phone] Social History Tobacco Use Types Packs/Day Years [...] 1:30 PM EST Office Visit [facility] [address] [place] [address] Maddie Kim MD [address] [place] [address] documented as of this encounter Visit Diagnoses Not on filedocumented in this encounter Additional Health Concerns Assessment Noted Time PHQ-9 Depression Total Score: 9 07/05/19 25 6:48 AM EDT documented as of this encounter Care Teams Supervisor [employer] Relationship Specialty Start Date End Date Maddie Kim MD [address] [place] [address] PCP - General Family Medicine 07/12/20 [facility] 01/17/22 01/05/25 [facility] 12/25/24 documented as of this encounter
--- OUTSIDE RECORDS SUMMARY | 2025-02-04 11:40 | XMS_ITS | Encounter Summary ---
Author Organization [employer] Address [address] [place] [address] 7t [place] [address] Care Team Providers Care Town Administrator Name Role Phone Maddie Kim MD Primary Care Provider [phone] Reason for Visit * Reason Onset Date Comments Med Refill 01/18/2025 Encounter Details Date Type Department Care Team ([facility] Contact Info) Description 01/18/2025 Refill [facility] [address] [place], [place] [phone] Maddie Kim MD [address] [place], [place] [phone] Chronic midline low back pain without sciatica [...] Office Visit [facility] [address] [place] [address] Maddie Kim MD [address] [place] [address] documented as of this encounter Visit Diagnoses Diagnosis Chronic midline low back pain without sciatica documented in this encounter Additional Health Concerns Assessment Noted Time PHQ-9 Depression Total Score: 10 025 3:49 PM EST documented as of this encounter Care Teams Town Administrator Relationship Specialty Start Date End Date Maddie Kim MD [address] [place] [address] PCP - General Family Medicine 07/12/20 [facility] 12/25/24 documented as of this encounter
--- OUTSIDE RECORDS SUMMARY | 2025-02-04 11:40 | XMS_ITS | Encounter Summary ---
Author Organization [employer] Address [address] [place] [address] 7 [place] [address] Care Team Providers Care Process Improvement Engineer Name Role Phone Maddie Kim MD Primary Care Provider [phone] Reason for Visit * Reason Onset Date Comments Med Refill 05/10/2023 Encounter Details Date Type Department Care Team ([facility] st Contact Info) Description 05/10/2023 Refill [facility] [address] [place], [place] [phone] Maddie Kim MD [address] [place], [place] [phone] Chronic bilateral low back pain without sciatica [...] 1:30 PM EST Office Visit [facility] [address] [place] [address] Maddie Kim MD [address] [place], [place] [phone] documented as of this encounter Visit Diagnoses Diagnosis Chronic bilateral low back pain without sciatica documented in this encounter Additional Health Concerns Assessment Noted Time PHQ-9 Depression Total Score: 0 05/30/19 23 3:26 PM EDT documented as of this encounter Care Teams Process Improvement Engineer Relationship Specialty Start Date End Date Maddie Kim MD [address] [place], [place] [phone] PCP - General Family Medicine 07/12/20 [facility] 01/17/22 01/05/25 [facility] 12/25/24 documented as of this encounter
--- OUTSIDE RECORDS SUMMARY | 2025-02-04 11:40 | XMS_ITS | Encounter Summary ---
Author Organization [employer] Address [address] [place] [address] 7t [place] [address] Care Team Providers Care Closing Machine Operator Name Role Phone Maddie Kim MD Primary Care Provider [phone] Encounter Details Date Type Department Care Team (Latest Contact Info) Description 02/04/2025 Travel Social History Tobacco Use Types Packs/Day [...] Visit [facility] [address] [place] [address] Maddie Kim MD [address] [place] [address] documented as of this encounter Visit Diagnoses Not on filedocumented in this encounter Additional Health Concerns Assessment Noted Time PHQ-9 Depression Total Score: 10 025 3:49 PM EST documented as of this encounter Care Teams Closing Machine Operator Relationship Specialty Start Date End Date Maddie Kim MD [address] [place] [phone] PCP - General Family Medicine 07/12/20 [facility] 12/25/24 documented as of this encounter
--- OUTSIDE RECORDS SUMMARY | 2025-02-04 11:40 | XMS_ITS | Encounter Summary ---
Author Organization [employer] Address [address] [place] [address] 7 [place] [address] Care Team Providers Care Prism Measurer Name Role Phone Maddie Kim MD Primary Care Provider [phone] Reason for Visit * Reason Onset Date Comments Med Refill 01/18/2025 Encounter Details Date Type Department Care Team ([facility] Contact Info) Description 01/18/2025 Refill [facility] [address] [place], [place] [phone] Maddie Kim MD [address] [place], [place] [phone] Social History Tobacco Use Types Packs/Day Years [...] Office Visit [facility]INE [address] [place] [phone] Maddie Kim MD [address] [place] [address] documented as of this encounter Visit Diagnoses Not on filedocumented in this encounter Additional Health Concerns Assessment Noted Time PHQ-9 Depression Total Score: 10 025 3:49 PM EST documented as of this encounter Care Teams Prism Measurer Relationship Specialty Start Date End Date Maddie Kim MD [address] [place] [address] PCP - General Family Medicine 07/12/20 [facility] 12/25/24 documented as of this encounter
--- OUTSIDE RECORDS SUMMARY | 2025-02-04 11:40 | XMS_ITS | Encounter Summary ---
Author Organization [employer] Address [address] [place] [address] 7 [place] [address] Care Team Providers Care Sample Taker Operator Name Role Phone Maddie Kim MD Primary Care Provider [phone] Reason for Visit * Reason Onset Date Comments Verbal orders/ Medication question 05/08/2023 Encounter Details Date Type Department Care Team ([facility] Contact Info) Description 05/08/2023 Telephone [facility] [address] [place], [place] [phone] Maddie Kim MD [address] [place], [place] [phone] Verbal orders/ Medication question Social History Tobacco [...] 05/09/2023 9:54 AM EDT TC placed to [place] at the [facility] and gave VO for jail for 3 times a week. Pt medications were also reconciled and pt reports using Viviscal OTC for hair growth and Calcium + VitD supplements. * Telephone Encounter - Toña Castillo - 05/08/2023 4:20 PM EDT Tc from [facility] requesting some verbal orders reconciliation for skill nursing 3 times a week. [place] is also requesting a call back to speak about patient's medications. documented in this encounter Plan of Treatment Upcoming Encounters Date Type Department Care Team (Late st Contact Info) Description 03/27/2025 1:30 PM EST Office Visit [facility] [address] [place] [address] Maddie Kim MD [address] [place] [address] documented as of this encounter Visit Diagnoses Not on filedocumented in this encounter Additional Health Concerns Assessment Noted Time PHQ-9 Depression Total Score: 0 05/30/19 23 3:26 PM EDT documented as of this encounter Care Teams Sample Taker Operator Relationship Specialty Start Date End Date Maddie Kim MD [address] [place] [address] PCP - General Family Medicine 07/12/20 [facility] 01/17/22 01/05/25 [facility] 12/25/24 documented as of this encounter
--- OUTSIDE RECORDS SUMMARY | 2025-02-04 11:40 | XMS_ITS | Encounter Summary ---
Author Organization [employer] Address [address] [place] [address] 7 [place] [address] Care Team Providers Care Front Desk Associate Name Role Phone Maddie Kim MD Primary Care Provider [phone] Reason for Referral * Consultation (Urgent) - Closed Specialty Diagnoses / Procedures Referred By Sindi mejia Referred To Contact Cardiology Diagnoses Primary hypertension Tachycardia Other chest pain Maddie Kim MD [address] [place] [address] Phone: tel: fax: [facility] Referral ID Status Reason Start Date Expiration Date V isits Requested Visits Authorized [id number] Closed Specialty Services Required 05/06/2024 05/06/2025 1 1 Encounter Details Date Type Department Care Team (Late st Contact Info) Description 05/06/2024 Orders Only [facility] MEDICINE [address] [place], [place] [phone] Maddie Kim MD [address] [place], [place] [phone] Primary hypertension (Primary Dx); Tachycardia; Other chest [...] [facility] [address] [place] [address] Maddie Kim MD [address] [place] [address] Scheduled Referrals Name Type Priority Associated Diagnoses [...] as of this encounter Care Teams Front Desk Associate Relationship Specialty Start Date End Date Maddei Kim MD [address] [place] [address] PCP - General Family Medicine 07/12/20 Willie [facility] 01/17/22 01/05/25 [facility] 12/25/24 documented as of this encounter
--- OUTSIDE RECORDS SUMMARY | 2025-02-04 11:40 | XMS_ITS | Encounter Summary ---
Author Organization [employer] Address [address] [place] [address] 7 [place] [address] Care Team Providers Care Refuse Laborer Name Role Phone Maddie Kim MD Primary Care Provider [phone] Reason for Referral * Consultation (Routine) - Closed Specialty Diagnoses / Procedures Referred By Sindi mejia Referred To Contact Nutrition Diagnoses Class 2 severe obesity with serious comorbidity and body mass index (BMI) of 39.0 to 39.9 in adult, unspecified obesity type Maddie Kim MD [address] [place] [address] Phone: tel: fax: Referral ID Status Reason Start Date Expiration Date V isits Requested Visits Authorized [id number] Closed Consult and Treat 04/06/2023 04/05/2024 1 1 Encounter Details Date Type Department Care Team (Late st Contact Info) Description 04/06/2023 Orders Only [facility] MEDICINE [address] [place] [address] [phone] Maddie Kim MD [address] [place] [address] [phone] Class 2 severe obesity with serious comorbidity [...] Description 03/27/2025 1:30 PM EST Office Visit [facility] [address] [place] [address] Maddie Kim MD [address] [place] [address] Scheduled Referrals Name Type Priority Associated Diagnoses [...] PM EDT Narrative 05/26/2023 3:06 PM EDT [facility] [address] [place], [place] [address] Mammography Report Signed Patient: Atiya Esparza MR#: [id number] : 1975 Acct:[id number] Age/Sex: 47 / F ADM Date: 05/04/23 Loc: [facility] Attending Dr: Maddie Kim MD Ordering Physician: Maddie Kim Results: 1Negative Date of Service: 05/04/23 Follow Up: 1 Year From Orig ina Mammogram Procedure(s): MM tomosynthesis screening BI Accession Number(s): [id number] cc: Maddie Kim EXAMINATION: MM SCREENING DIGITAL [...] in OV> 05/26/23 1503 DD/ 1602 TD/TT: Warehouse Packaging Supervisor: Procedure Note Donotuseinterpreter, Image - 05/26/2023 [facility]'s [address] [place], [place] [address] Mammography Report Signed Patient: Zain Esparza#: [id number] : 1975Acct:[id number] Age/Sex: 47 / FADM Date: 05/04/23 Loc: MAMMO Attending Dr: Maddie Kim MD Ordering Physician: Jaja Kimults: 1Negative Date of Service: 05/04/23Follow Up: 1 Year From Orig inal Mammogram Procedure(s): MM tomosynthesis screening BI Accession Number(s): [id number] cc: Maddie Kim EXAMINATION: MM SCREENING DIGITAL [...] in OV> 05/26/23 1503 DD/ 1602 TD/TT: Warehouse Packaging Supervisor: Maddie Kim MD IMG BI PROCEDURES Final [...] documented as of this encounter Care Teams Refuse Laborer Relationship Specialty Start Date End Date Maddie Kim MD [address] [place] [address] PCP - General Family Medicine 07/12/20 [facility] 01/17/22 01/05/25 [facility] 12/25/24 documented as of this encounter
--- OUTSIDE RECORDS SUMMARY | 2025-02-04 11:41 | XMS_ITS | Encounter Summary ---
Author Organization [employer] Address [address] [place] [address] 7t [place] [address] Care Team Providers Care Advertising Sales Assistant Name Role Phone Maddie Kim MD Primary Care Provider [phone] Encounter Details Date Type Department Care Team ([facility] st Contact Info) Description 03/19/2023 Orders Only [facility] MEDICINE 230 [place], [place] [phone] Maddie Kim MD 230 [place], [place] [phone] Herniated lumbar intervertebral disc (Primary Dx) Social [...] Description 03/27/2025 1:30 PM EST Office Visit [facility] [address] [place] [address] Maddie Kim MD 230 [place] [address] documented as of this encounter Visit Diagnoses Diagnosis Herniated lumbar intervertebral disc- Primary Displacement of lumbar intervertebral disc without myelopathy documented in this encounter Additional Health Concerns Assessment Noted Time PHQ-9 Depression Total Score: 0 05/30/19 23 3:26 PM EDT documented as of this encounter Care Teams Advertising Sales Assistant Relationship Specialty Start Date End Date Maddie Kim MD [address] [place] [address] PCP - General Family Medicine 07/12/20 Willie Gage 01/17/22 01/05/25 [facility] 12/25/24 documented as of this encounter
--- OUTSIDE RECORDS SUMMARY | 2025-02-04 11:41 | XMS_ITS | Encounter Summary ---
Author Organization [employer] Address [address] [place] [address] 7t [place] [address] Care Team Providers Care Jewelry Maker Name Role Phone Maddie Kim MD Primary Care Provider [phone] Encounter Details Date Type Department Care Team ([facility] Contact Info) Description 11/21/2024 Orders Only [facility] MEDICINE 230 [place], [place] [phone] Maddie Kim MD 230 [place], [place] [phone] Social History Tobacco Use Types Packs/Day Years [...] 03/27/2025 1:30 PM EST Office Visit [facility] MEDICINE [address] [place] [address] Maddie Kim MD 230 [place] [address] documented as of this encounter Visit Diagnoses Not on filedocumented in this encounter Additional Health Concerns Assessment Noted Time PHQ-9 Depression Total Score: 9 07/05/19 25 6:48 AM EDT documented as of this encounter Care Teams Jewelry Maker Relationship Specialty Start Date End Date Maddie Kim MD [address] [place] [address] PCP - General Family Medicine 07/12/20 Willie Gage 01/17/22 01/05/25 [facility] 12/25/24 documented as of this encounter
--- OUTSIDE RECORDS SUMMARY | 2025-02-04 11:41 | XMS_ITS | Encounter Summary ---
Author Organization [employer] Address [address] [place] [address] 7 [place] [address] Care Team Providers Care Senior Credit Officer Name Role Phone Maddie Kim MD Primary Care Provider [phone] Reason for Visit * Reason Onset Date Comments Med Refill 03/19/2023 Encounter Details Date Type Department Care Team ([facility] Contact Info) Description 03/19/2023 Telephone [facility] 230 [place], [place] [phone] Maddie Kim MD 230 [place], [place] [phone] Med Refill Social History Tobacco Use Types [...] Pt agrees. MD Maddie Saravia RN; [facility] Team Nurses Caller: Unspecified (2 weeks ago) I wrote her a work excuse extending her time for remote work until 04/05/23 * Telephone Encounter - Maddie Crawford RN - 04/02/2023 3:02 PM EST Images from the original note were not included. Triage call regarding Pt portal message below. Pt continues to have symptoms of Covid. Pt was seen in [facility] 03/29/[address] Gonzalez and dx [...] better sooner will [facility] into [facility]. 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-19 by Doctor (or SURVEY INSTRUMENT OPERATOR/PA) and Mild Symptoms * General Care Advice for COVID-19 Symptoms * Humidifier * Coughing Spells * Pain and Fever Medicines * Mild Stomach and Intestinal Symptoms During COVID-19 Illness Atiya [facility] Clinial Support (supporting Lorrie Alaniz [...] EST Office Visit [facility] 230 [place] [address] Maddie Kim MD 230 [place] [address] documented as of this encounter Visit Diagnoses Not on filedocumented in this encounter Additional Health Concerns Assessment Noted Time PHQ-9 Depression Total Score: 0 05/30/19 23 3:26 PM EDT documented as of this encounter Care Teams Senior Credit Officer Relationship Specialty Start Date End Date Maddie Kim MD 230 [place], [place] [phone] PCP - General Family Medicine 07/12/20 Willie Gage 01/17/22 01/05/25 [facility] 12/25/24 documented as of this encounter
--- OUTSIDE RECORDS SUMMARY | 2025-02-04 11:41 | XMS_ITS | Encounter Summary ---
Author Organization [employer] Address [address] [facility] 7t [place] [address] Care Team Providers Care Sales Estimator Name Role Phone Maddie Kim MD Primary Care Provider [phone] Reason for Visit * Reason Comments Med Refill Encounter Details Date Type Department Care Team ([facility] st Contact Info) Description 03/18/2023 Refill [facility] [address] [place] [address] [phone] Maddie Kim MD [address] [place] [address] [phone] Social History Tobacco Use Types Packs/Day Years [...] [facility] [address] [place] [address] Maddie Kim MD [address] [place] [address] documented as of this encounter Visit Diagnoses Not on filedocumented in this encounter Additional Health Concerns Assessment Noted Time PHQ-9 Depression Total Score: 0 05/30/19 23 3:26 PM EDT documented as of this encounter Care Teams Sales Estimator Relationship Specialty Start Date End Date Maddie Kim MD [address] [place] [address] PCP - General Family Medicine 07/12/20 [facility] 01/17/22 01/05/25 [facility] 12/25/24 documented as of this encounter
--- OUTSIDE RECORDS SUMMARY | 2025-02-04 11:41 | XMS_ITS | Encounter Summary ---
Author Organization [employer] Address [address] [facility] 7t [place] [address] Care Team Providers Care Websphere Administrator Name Role Phone Maddie Kim MD Primary Care Provider [phone] Reason for Visit * Reason Comments Med Refill Encounter Details Date Type Department Care Team ([facility] st Contact Info) Description 04/05/2023 Refill [facility] [address] [place] [address] [phone] Isac Gonzalez MD [address] [place] [address] [phone] Chronic bilateral low back pain without sciatica [...] - 04/06/2023 12:46 PM EST TC to [facility] pharmacy, T3 RX written 03/29/23 for #45 [...] Description 03/27/2025 1:30 PM EST Office Visit [facility] MEDICINE 230 [place] [address] Maddie Kim MD 230 [place] [address] documented as of this encounter Visit Diagnoses Diagnosis Chronic bilateral low back pain without sciatica documented in this encounter Additional Health Concerns Assessment Noted Time PHQ-9 Depression Total Score: 0 05/30/19 23 3:26 PM EDT documented as of this encounter Care Teams Websphere Administrator Relationship Specialty Start Date End Date Maddie Kim MD 230 [place] [address] PCP - General Family Medicine 07/12/20 Willie Gage 01/17/22 01/05/25 [facility] 12/25/24 documented as of this encounter
--- OUTSIDE RECORDS SUMMARY | 2025-02-04 11:41 | XMS_ITS | Encounter Summary ---
Author Organization [employer] Address [address] [place] [address] 7 [place] [address] Care Team Providers Care Compressor Station Chief Engineer Name Role Phone Maddie Kim MD Primary Care Provider [phone] Reason for Visit * Reason Comments Med Change Request Encounter Details Date Type Department Care Team ([facility] Contact Info) Description 07/25/2024 Refill [facility]INE 230 [place], [place] [phone] Maddie Kim MD 230 [place], [place] [phone] Social History Tobacco Use Types Packs/Day Years [...] 03/27/2025 1:30 PM EST Office Visit [facility] 230 [place] [address] Maddie Kim MD 230 [place] [address] documented as of this encounter Visit Diagnoses Not on filedocumented in this encounter Additional Health Concerns Assessment Noted Time PHQ-9 Depression Total Score: 9 07/05/19 25 6:48 AM EDT documented as of this encounter Care Teams Compressor Station Chief Engineer Relationship Specialty Start Date End Date Maddie Kim MD 230 [place] [address] PCP - General Family Medicine 07/12/20 Willie Gage 01/17/22 01/05/25 [facility] 12/25/24 documented as of this encounter
--- OUTSIDE RECORDS SUMMARY | 2025-02-04 11:41 | XMS_ITS | Encounter Summary ---
Author Organization [employer] Address [address] [facility] 7t [place] [address] Care Team Providers Care Csr Retail Name Role Phone Maddie Kim MD Primary Care Provider Reason for Visit * Reason Onset Date Comments Med Refill 02/14/2023 Encounter Details Date Type Department Care Team ([facility] Contact Info) Description 02/14/2023 Refill [facility] [address] [place] [address] [phone] Maddie Kim MD 230 [place], [place] [phone] Social History Tobacco Use Types Packs/Day Years [...] Office Visit [facility] MEDICINE [address] [place] [address] Maddie Kim MD [address] [place] [address] [phone] documented as of this encounter Visit Diagnoses Not on filedocumented in this encounter Additional Health Concerns Assessment Noted Time PHQ-9 Depression Total Score: 0 05/30/19 23 3:26 PM EDT documented as of this encounter Care Teams Csr Retail Relationship Specialty Start Date End Date Maddie Kim MD [address] [place] [address] [phone] PCP - General Family Medicine 07/12/20 Willie Gage 01/17/22 01/05/25 [facility] 12/25/24 documented as of this encounter
--- OUTSIDE RECORDS SUMMARY | 2025-02-04 11:41 | XMS_ITS | Encounter Summary ---
Author Organization [employer] Address [address] [facility] 7t [place] [address] Care Team Providers Care Leaf Tinner Name Role Phone Maddie Kim MD Primary Care Provider [phone] Reason for Visit * Reason Onset Date Comments Med Refill 04/04/2023 Encounter Details Date Type Department Care Team ([facility] Contact Info) Description 04/04/2023 Refill [facility] [address] [place] [address] [phone] Isac Gonzalez MD 230 [place], [place] [phone] Chronic bilateral low back pain without sciatica [...] Description 03/27/2025 1:30 PM EST Office Visit [facility] 230 [place] [address] Maddie Kim MD 230 [place] [address] documented as of this encounter Visit Diagnoses Diagnosis Chronic bilateral low back pain without sciatica documented in this encounter Additional Health Concerns Assessment Noted Time PHQ-9 Depression Total Score: 0 05/30/19 23 3:26 PM EDT documented as of this encounter Care Teams Leaf Tinner Relationship Specialty Start Date End Date Maddie Kim MD [address] [place] [address] PCP - General Family Medicine 07/12/20 [facility] 01/17/22 01/05/25 [facility] 12/25/24 documented as of this encounter
--- OUTSIDE RECORDS SUMMARY | 2025-02-04 11:41 | XMS_ITS | Encounter Summary ---
Author Organization [employer] Address [address] [place] [address] 7 [place] [address] Care Team Providers Care Photographic Process Screen Maker Name Role Phone Maddie Kim MD Primary Care Provider [phone] Reason for Visit * Reason Onset Date Comments Referral 05/05/2024 Encounter Details Date Type Department Care Team ([facility] Contact Info) Description 05/05/2024 Telephone [facility] 230 [place], [place] [phone] Maddie Kim MD 230 [place], [place] [phone] Referral Social History Tobacco Use Types Packs/Day [...] pt requesting referral that was placed for plugging machine operator needs to say URGENT as pt has surgery in May and facility inform availability is for June unless PCP states is urgent. documented in this encounter Plan of Treatment Upcoming Encounters Date Type Department Care Team (Late st Contact Info) Description 03/27/2025 1:30 PM EST Office Visit [facility] [address] [place] [address] Maddie Kim MD 230 [place] [address] documented as of this encounter Visit Diagnoses Not on filedocumented in this encounter Additional Health Concerns Assessment Noted Time PHQ-9 Depression Total Score: 3 06/15/19 24 11:48 AM EDT documented as of this encounter Care Teams Photographic Process Screen Maker Relationship Specialty Start Date End Date Maddie Kim MD [address] [place] [address] PCP - General Family Medicine 07/12/20 Willie Gage 01/17/22 01/05/25 [facility] 12/25/24 documented as of this encounter
--- OUTSIDE RECORDS SUMMARY | 2025-02-04 11:42 | XMS_ITS | Encounter Summary ---
Author Organization [employer] Address [address] [place] [address] 7t [place] [address] Care Team Providers Care Property Portfolio Officer Name Role Phone Maddie Kim MD Primary Care Provider [phone] Encounter Details Date Type Department Care Team ([facility] st Contact Info) Description 07/29/2023 Orders Only [facility] MEDICINE 230 [place], [place] [phone] Maddie Kim MD 230 [place], [place] [phone] Social History Tobacco Use Types Packs/Day Years Used Date Smoking Tobacco: Every Day Cigarettes 0.5 26 Started: 02/19/1999 Passive Smoke Exposure: Past Smokeless [...] [facility] 230 [place] [address] Maddie Kim MD 230 [place] [address] documented as of this encounter Visit Diagnoses Not on filedocumented in this encounter Additional Health Concerns Assessment Noted Time PHQ-9 Depression Total Score: 3 06/15/19 24 11:48 AM EDT documented as of this encounter Care Teams Property Portfolio Officer Relationship Specialty Start Date End Date Maddie Kim MD 230 [place] [address] PCP - General Family Medicine 07/12/20 Willie [facility] 01/17/22 01/05/25 [facility] 12/25/24 documented as of this encounter
--- OUTSIDE RECORDS SUMMARY | 2025-02-04 11:42 | XMS_ITS | Encounter Summary ---
Author Organization [employer] Address [address] [place] [address] 7 [place] [address] Care Team Providers Care Duralumin Metalworker Name Role Phone Maddie Kim MD Primary Care Provider [phone] Encounter Details Date Type Department Care Team (Late Contact Info) Description 01/27/2022 Telephone [facility] MEDICINE [address] [place] [address] Maddie Kim MD [address] [place] [address] Social History Tobacco Use Types Packs/Day Years [...] 03/27/2025 1:30 PM EST Office Visit [facility] MEDICINE [address] [place] [address] Maddie Kim MD [address] [place] [address] documented as of this encounter Visit Diagnoses Not on filedocumented in this encounter Care Teams Duralumin Metalworker Relationship Specialty Start Date End Date Maddie Kim MD [address] [place] [address] PCP - General Family Medicine 07/12/20 Willie Gage 01/17/22 01/05/25 [facility] 12/25/24 documented as of this encounter
--- OUTSIDE RECORDS SUMMARY | 2025-02-04 11:43 | XMS_ITS | Encounter Summary ---
Author Organization [employer] Address [address] [place] [address] 7 [place] [address] Care Team Providers Care Oriental Medicine Practitioner Name Role Phone Maddie Kim MD Primary Care Provider [phone] Reason for Visit * Reason Onset Date Comments Call Back Request 07/26/2023 Encounter Details Date Type Department Care Team ([facility] Contact Info) Description 07/26/2023 Telephone [facility] MEDICINE 230 [place] [address] Maddie Kim MD 230 [place], [place] [phone] Call Back Request Social History Tobacco Use [...] 07/27/2023 9:31 AM EDT Tc returned to [place], questioning pt.'s risperidone inj rx on med list they received. Looking back in chart, this was discontinued after inpatient hosp in 2020 due to noncompliance with injections. This was the last time it was prescribed. Georgie is requesting this is taken off our med list for accuracy, thank you! * Telephone Encounter - Zach Carlson - 07/26/2023 4:12 PM EDT Tc from [place] with Willie Gage requesting a call back for a med reconciliation. Please contact Georgie at [phone]. documented in this encounter Plan of Treatment Upcoming Encounters Date Type Department Care Team (Late st Contact Info) Description 03/27/2025 1:30 PM EST Office Visit [facility] MEDICINE 230 [place] [address] Maddie Kim MD 230 [place] [address] documented as of this encounter Visit Diagnoses Not on filedocumented in this encounter Additional Health Concerns Assessment Noted Time PHQ-9 Depression Total Score: 3 06/15/19 24 11:48 AM EDT documented as of this encounter Care Teams Oriental Medicine Practitioner Relationship Specialty Start Date End Date Maddie Kim MD 230 [place] [address] PCP - General Family Medicine 07/12/20 Willie Gage 01/17/22 01/05/25 [facility] 12/25/24 documented as of this encounter
--- OUTSIDE RECORDS SUMMARY | 2025-02-04 11:43 | XMS_ITS | Encounter Summary ---
Author Organization [employer] Address [address] [place] [address] 7 [place] [address] Care Team Providers Care Tester Sound Name Role Phone Maddie Kim MD Primary Care Provider [phone] Reason for Visit * Reason Onset Date Comments Hospital Follow-up 03/28/2024 Encounter Details Date Type Department Care Team ([facility] Contact Info) Description 03/28/2024 Telephone [facility] MEDICINE 230 [place], [place] [phone] Maddie Kim MD 230 [place], [place] [phone] Hospital Follow-up Social History Tobacco Use Types [...] from pt requesting a HDF appt. Hospital: [facility] Date of admission: 03/24/24 Discharge date: 03/27/24 Diagnosed: Hyponatremia *Send message to [facility] Clinical Care Coordinators documented in this encounter Plan of Treatment Upcoming Encounters Date Type Department Care Team (Late st Contact Info) Description 03/27/2025 1:30 PM EST Office Visit [facility] MEDICINE [address] [place] [address] Maddei Kim MD [address] [place] [address] documented as of this encounter Visit Diagnoses Not on filedocumented in this encounter Additional Health Concerns Assessment Noted Time PHQ-9 Depression Total Score: 3 06/15/19 24 11:48 AM EDT documented as of this encounter Care Teams Tester Sound Relationship Specialty Start Date End Date Maddie Kim MD [address] [place] [address] PCP - General Family Medicine 07/12/20 Willie Gage 01/17/22 01/05/25 [facility] 12/25/24 documented as of this encounter
--- OUTSIDE RECORDS SUMMARY | 2025-02-04 11:43 | XMS_ITS | Encounter Summary ---
Author Organization [employer] Address [address] [place] [address] 7 [place] [address] Care Team Providers Care Yeast Distiller Name Role Phone Maddie Kim MD Primary Care Provider [phone] Reason for Visit * Reason Onset Date Comments FYI 02/15/2024 Encounter Details Date Type Department Care Team ([facility] Contact Info) Description 02/15/2024 Telephone [facility] 230 [place], [place] [phone] Maddie Kim MD 230 [place], [place] [phone] FY Social History Tobacco Use Types Packs/Day [...] any questions you can contact Lauren at [phone]. documented in this encounter Plan of Treatment Upcoming Encounters Date Type Department Care Team (Late st Contact Info) Description 03/27/2025 1:30 PM EST Office Visit [facility] MED[facility] [address] [place] [address] Maddie Kim MD [address] [place] [address] documented as of this encounter Visit Diagnoses Not on filedocumented in this encounter Additional Health Concerns Assessment Noted Time PHQ-9 Depression Total Score: 3 06/15/19 24 11:48 AM EDT documented as of this encounter Care Teams Yeast Distiller Relationship Specialty Start Date End Date Maddie Kim MD [address] [place] [address] PCP - General Family Medicine 07/12/20 Willie Gage 01/17/22 01/05/25 [facility] 12/25/24 documented as of this encounter
--- OUTSIDE RECORDS SUMMARY | 2025-02-04 11:43 | XMS_ITS | Encounter Summary ---
Author Organization [employer] Address [address] [place] [address] 7 [place] [address] Care Team Providers Care Special Agent Fbi Name Role Phone Maddie Kim MD Primary Care Provider [phone] Reason for Visit * Reason Onset Date Comments Durable Medical Equipment 03/16/2022 Encounter Details Date Type Department Care Team ([facility] st Contact Info) Description 03/16/2022 Telephone [facility] MEDICINE [address] [place] [address] [phone] Maddie Kim MD 230 [place], [place] [phone] Durable Medical Equipment Social History Tobacco Use Types Packs/Day Years Used Date Smoking Tobacco: Every Day Cigarettes 0.3 26 Started: 02/19/1999 Smokeless Tobacco: Never Alcohol Use [...] it can fax to her landlord at [phone]. She would like the script to be to the [employer] [facility] [place], [address] [place] [address] If any concerns please contact pt at [phone] documented in this encounter Plan of Treatment Upcoming Encounters Date Type Department Care Team (Late st Contact Info) Description 03/27/2025 1:30 PM EST Office Visit [facility] MEDICINE [address] [place] [address] Maddie Kim MD [address] [place] [address] documented as of this encounter Visit Diagnoses Not on filedocumented in this encounter Care Teams Special Agent [employer] Relationship Specialty Start Date End Date Maddie Kim MD [address] [place] [address] PCP - General Family Medicine 07/12/20 Willie Gage 01/17/22 01/05/25 [facility] 12/25/24 documented as of this encounter
--- OUTSIDE RECORDS SUMMARY | 2025-02-04 11:43 | XMS_ITS | Encounter Summary ---
Author Organization [employer] Address [address] [place] [address] 7 [place] [address] Care Team Providers Care It Risk And Assurance Senior Manager Name Role Phone Maddie Kim MD Primary Care Provider [phone] Encounter Details Date Type Department Care Team (Late Contact Info) Description 04/11/2022 Abstract [facility] MEDICINE [address] [place] [address] [phone] Maddie Kim MD [address] [place] [address] [phone] Social History Tobacco Use Types Packs/Day Years [...] 03/27/2025 1:30 PM EST Office Visit [facility] [address] [place] [address] [phone] Maddie Kim MD [address] [place] [address] [phone] documented as of this encounter Visit Diagnoses Not on filedocumented in this encounter Care Teams It Risk And Assurance Senior Manager Relationship Specialty Start Date End Date Maddie Kim MD [address] [facility] [place] [address] PCP - General Family Medicine 07/12/20 Willie Gage 01/17/22 01/05/25 [facility] 12/25/24 documented as of this encounter
--- OUTSIDE RECORDS SUMMARY | 2025-02-04 11:43 | XMS_ITS | Encounter Summary ---
Author Organization [employer] Address [address] [place] [address] 7t [place] [address] Care Team Providers Care Contact Center Associate Name Role Phone Maddie Kim MD Primary Care Provider [phone] Encounter Details Date Type Department Care Team ([facility] st Contact Info) Description 01/02/2024 Orders Only [facility] MEDICINE [address] [place], [place] [phone] Maddie Kim MD [address] [place], [place] [phone] Social History Tobacco Use Types Packs/Day Years [...] 03/27/2025 1:30 PM EST Office Visit [facility] [address] [place] [address] Maddie Kim MD [address] [place] [address] documented as of this encounter Visit Diagnoses Not on filedocumented in this encounter Additional Health Concerns Assessment Noted Time PHQ-9 Depression Total Score: 3 06/15/19 24 11:48 AM EDT documented as of this encounter Care Teams Contact Center Associate Relationship Specialty Start Date End Date Maddie Kim MD [address] [place] [address] PCP - General Family Medicine 07/12/20 [facility] 01/17/22 01/05/25 [facility] 12/25/24 documented as of this encounter
--- OUTSIDE RECORDS SUMMARY | 2025-02-04 11:43 | XMS_ITS | Encounter Summary ---
Author Organization [employer] Address [address] [place] [address] 7 [place] [address] Care Team Providers Care Ferryboat Deckhand Name Role Phone Maddie Kim MD Primary Care Provider [phone] Reason for Visit * Reason Onset Date Comments c/b request 11/10/2022 Encounter Details Date Type Department Care Team ([facility] Contact Info) Description 11/10/2022 Telephone [facility] MEDICINE [address] [place] [address] [phone] Maddie Kim MD [address] [place], [place] [phone] c/b request Social History Tobacco Use Types [...] to medication reconciliation. Please contact [employer] at [phone] documented in this encounter Plan of Treatment Upcoming Encounters Date Type Department Care Team (Late st Contact Info) Description 03/27/2025 1:30 PM EST Office Visit [facility] [address] [place], [place] [phone] Maddie Kim MD [address] [place] [phone] documented as of this encounter Visit Diagnoses Diagnosis Gastroesophageal reflux disease without esophagitis Esophageal reflux documented in this encounter Additional Health Concerns Assessment Noted Time PHQ-9 Depression Total Score: 0 05/30/19 23 3:26 PM EDT documented as of this encounter Care Teams Ferryboat Deckhand Relationship Specialty Start Date End Date Maddie Kim MD [address] [place] [address] [phone] PCP - General Family Medicine 07/12/20 Willie Gage 01/17/22 01/05/25 [facility] 12/25/24 documented as of this encounter
--- OUTSIDE RECORDS SUMMARY | 2025-02-04 11:43 | XMS_ITS | Encounter Summary ---
Author Organization [employer] Address [address] [place] [address] 7t [place] [address] Care Team Providers Care Cutting And Printing Machine Operator Name Role Phone Maddie Kim MD Primary Care Provider [phone] Encounter Details Date Type Department Care Team ([facility] st Contact Info) Description 06/13/2023 Orders Only [facility] [address] [place], [place] [phone] Maddie Kim MD [address] [place], [place] [phone] Social History Tobacco Use Types Packs/Day Years [...] things Not at all 06/15/2023 11:48 AM ELIOT Ruth Meza [place] Feeling down, depressed, or hopeless Not at all 06/15/2023 11:48 AM ELIOT Ashlyn Meza [place] Trouble falling or staying asleep, or sleeping too much Nearly every day 06/15/2023 11:48 AM LEIOT Ashlyn Meza [place] Feeling tired or having little energy Not at all 06/15/2023 11:48 AM ELIOT Ashlyn Meza [place] Poor appetite or overeating Not at all 06/15/2023 11:48 AM ELIOT Ashlyn Meza [place] Feeling bad about yourself - or that you are a failure or have let yourself or your family down Not at all 06/15/2023 11:48 AM EDT Ashlyn Meza [place] Trouble concentrating on things, such as reading the newspaper or watching television Not at all 06/15/2023 11:48 AM ELIOT sAhlyn Meza MA Moving or speaking so slowly [...] Health Questionnaire-9 Score 3 06/15/2023 11:48 AM Magnolia Riojas [place] documented as of this encounter Plan of Treatment Upcoming Encounters Date Type Department Care Team (Late st Contact Info) Description 03/27/2025 1:30 PM EST Office Visit [facility] [address] [place] [address] Maddie Kim MD [address] [place] [address] documented as of this encounter Visit Diagnoses Not on filedocumented in this encounter Additional Health Concerns Assessment Noted Time PHQ-9 Depression Total Score: 0 05/30/19 23 3:26 PM EDT documented as of this encounter Care Teams Cutting And Printing Machine Operator Relationship Specialty Start Date End Date Maddie Kim MD [address] [place] [address] PCP - General Family Medicine 07/12/20 [facility] 01/17/22 01/05/25 [facility] 12/25/24 documented as of this encounter
--- OUTSIDE RECORDS SUMMARY | 2025-02-04 11:43 | XMS_ITS | Patient Health Record ---
Author Organization [facility] Address [address] [place] [address] Care Team Providers Care Medical Engineer Name Role Phone Maya Wu Primary Care Provider Reshma Sky Unavailable [phone] Allergies Allergen (clinical drug ingredient) Drug/Non Drug [...] 09/26/2024 Encounters Encounter [facility] Date [facility] [address] 07/11/2024 Reshma Perica Pain in right toe(s) M79.674 ; Onychomycosis B35.1 and Ingrown nail L60.[address] [address] 09/26/2024 Reshma Perica Onychomycosis B35.[address] [address] 07/11/2024 Reshma Perica [address] [address] 07/11/2024 Reshma Perica [address] [address] 07/17/2024 Reshma Perica Assessments Encounter Date Diagnosis [...] Coverage Start Date Coverage End Date [facility] [employer] Claims [address] [place] [id number] Atiya Dotson Self - patient is the insured Medical (General) History Medical History History ICD Code Anxiety Arthritis Back,Hip,and Knee pain Depression Gall bladder problems High blood pressure Reflux ( GERD) thyroid ulcer Chicken pox Joint implants/screws Surgical History Surgery Date(Month/Year) gastric bypass 2008 bowel obstruction 2018 Right knee replacement 03/13 knee replacement 05/27/24
--- OUTSIDE RECORDS SUMMARY | 2025-02-04 11:43 | XMS_ITS | Encounter Summary ---
Author Organization [employer] Address [address] [place] [address] 7 [place] [address] Care Team Providers Care Workplace Relations Adviser Name Role Phone Maddie Kim MD Primary Care Provider [phone] Encounter Details Date Type Department Care Team (Late Contact Info) Description 03/30/2022 Abstract [facility] MEDICINE [address] [place] [address] [phone] Maddie Kim MD [address] [place] [address] [phone] Social History Tobacco Use Types Packs/Day Years [...] 03/27/2025 1:30 PM EST Office Visit [facility] MEDICINE [address] [place] [address] [phone] Maddie Kim MD [address] [place] [address] [phone] documented as of this encounter Visit Diagnoses Not on filedocumented in this encounter Care Teams Workplace Relations Adviser Relationship Specialty Start Date End Date Maddie Kim MD [address] [facility] [address] PCP - General Family Medicine 07/12/20 Willie Gage 01/17/22 01/05/25 [facility] 12/25/24 documented as of this encounter
--- OUTSIDE RECORDS SUMMARY | 2025-02-04 11:43 | XMS_ITS | Clinical Summary ---
Author Organization [employer] Address [address] [place] [address] [address] [place] [address] Care Team Providers Care Social Research Assistant Name Role Phone Maddie Kim MD Primary Care Provider [phone] Allergies Active Allergy Reactions Criticality Noted Date [...] 025 Active QUEtiapine (SEROquel) 25 MG tablet Active traZODone (Desyrel) 50 MG tablet 025 [...] capsuleIndication s:Bipolar disorder with severe sonya (CMS/HCC) ([facility]) 025 Active traZODone (Desyrel) 100 MG tabletIndications :Bipolar disorder with severe sonya (CMS/HCC) ([facility]) 025 Active hydrocortisone 2.5 % creamIndications: External hemorrhoid Apply topically 2 times daily. 28 g 1 025 Active witch james-glycerin (Tucks) padIndications:Ex ternal hemorrhoid Apply topically if needed for irritation. 40 each 1 025 Active docusate sodium (Colace) 100 MG capsule TAKE 1 CAPSULE BY MOUTH TWICE A DAY 180 capsule 1 025 Active baclofen (Lioresal) 10 MG tabletIndications :Chronic midline low back pain without sciatica Take 1 tablet (10 mg) by mouth if needed in the morning, at noon, and at bedtime for muscle spasms. 90 tablet 025 2024 Active Tirzepatide-Weigh t Management (Zepbound) 15 MG/0.5ML solution auto-injectorIndi cations:Class 3 severe obesity with serious comorbidity and body mass index (BMI) of 40.0 to 44.9 in adult, unspecified obesity type ([facility]) Inject 0.5 mL (15 mg) under the skin 1 (one) time per week. 2 mL 5 Active meclizine (Antivert) 25 MG tablet Take 1 tablet (25 mg) by mouth if needed in the morning, at noon, and at bedtime for dizziness or nausea. 30 tablet Active famotidine (Pepcid) 20 MG tablet Take 1 tablet (20 mg) by mouth 2 times daily. 60 tablet 025 2025 Active docusate sodium (Colace) 100 MG capsule [...] per week. 2 mL 3 025 2024 Discontinued(D ose adjustment) Tirzepatide-Weigh t Management (Zepbound) 10 MG/0.5ML solution auto-injector Inject 0.5 mL (10 mg) under the skin 1 (one) time per week. 2 mL 1 025 2024 Discontinued(D ose adjustment) meclizine (Antivert) 25 MG tablet Take 1 tablet (25 mg) by mouth if needed in the morning, at noon, and at bedtime for dizziness or nausea. 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 She was using [facility], but they cannot come before her work day at 8am. 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 I think discuss portion sizes with patient representative Assessment & Plan (01/29/2022 10:40 AM EST): [...] Encounters Date Type Department Care Team Description 02/04/2025 9:20 AM EST Office Visit [facility] [address] [place] [address] Elevated blood pressure reading in office without diagnosis of hypertension (Primary Dx); Fatigue, unspecified type; Vomiting and diarrhea 02/04/2025 Telephone [facility] [address] [place] [address] Sandro Chew MD 02/04/2025 Travel 01/24/2025 Travel 01/23/2025 Telephone [facility] [address] [place] [address] Maddie Kim MD Nurse Triage 01/18/2025 Refill [facility] [address] [place] [address] Maddie Kim MD Chronic midline low back pain without sciatica 01/18/2025 Refill [facility] [address] [place] [address] Maddie Kim MD 01/14/2025 Refill [facility] [address] [place] [address] Maddie Kim MD Chronic midline low back pain without sciatica 01/13/2025 Telephone [facility] [address] [place] [address] Maddie Kim MD Prior Authorization (PA: Christy) 01/06/2025 Results Follow-Up [facility] [place] [address] Abdomen Pelvis w/ Contrast 01/06/2025 Orders Only GENERIC EXTERNAL DATA DEPARTMENT Provider, Generic External Data 01/06/[address] [address] Maddie Kim MD Nurse Triage 12/31/2024 3:45 PM EST Office Visit [facility] [place] [address] Maddie Kim MD Benign hypertension (Primary Dx); Encounter for immunization; Encounter for vaccination; Bipolar disorder with severe sonya (CMS/HCC) (HCC); Chronic bilateral low back pain without sciatica; Chronic pain of both knees; Herniated lumbar intervertebral disc; Class 2 obesity; External hemorrhoid 12/31/2024 Travel 12/30/[address] [address] Maddie Kim MD Chart Prep 12/25/2024 Refill [facility] [address] [place] [phone] Maddie Kim MD Chronic midline low back pain without sciatica; Vitamin D deficiency 12/25/2024 Refill [facility] [address] [place] [phone] Maddie Kim MD 12/24/2024 Orders Only [address] [address] Maddie Kim MD 12/24/[address] [address] Maddie Kim MD 12/23/2024 Patient Outreach [address] [address] Maddie Kim MD Pre-visit Planning (SDOH screening was completed on 09/08/2024) 12/22/2024 Telephone [facility] [address] [place] [phone] Maddie Kim MD 12/11/2024 Telephone [facility] [address] [place] [address] Kathie Mclean, MAJO NTTS f/up 12/10/2024 Orders Only GENERIC EXTERNAL DATA DEPARTMENT Provider, Generic External Data 11/21/2024 Orders Only [facility] [address] [place] [address] Maddie Kim MD 11/21/[address] [address] Maddie Kim MD Med Refill from Last [...] Description 03/27/2025 1:30 PM EST Office Visit [facility] [address] [place] [address] Maddie Kim MD [address], [place] [phone] Health Maintenance Due Date Last Done Comments [...] 09/09/2024 HPV/Cotest 12/20/2025 12/20/2020, 12/20/2020 Tobacco Screening 02/04/2026 02/04/2025 Cervical Cancer Screening 01/21/2027 Pap Smear 01/21/2027 [...] Diagnosis Comments CBC WITH AUTO DIFFERENTIAL Routine 02/04/2025 9:52 AM EST Fatigue, unspecified type Vomiting and diarrhea CT ABDOMEN PELVIS W CONTRAST Routine 01/06/2025 [...] Maintenance Results * (ABNORMAL) CBC auto differential (02/04/2025 9:52 AM EST) Only the most recent of3 resultswithin the time period is included. White Blood Count 7.0 4.8 - 10.8 X10*3/uL [facility] Red Blood Count 4.77 4.20 - 5.50 X10*6/uL [facility] Hemoglobin 11.9(L) 12.0 - 16.0 g/dl [facility] Hematocrit 38.5 37.0 - 47.0 % [facility] Mean Corpuscular Volume 80.7 80.0 - 98.0 fL [facility] Mean Corpuscular Hemoglobin 24.9(L) 27.0 - 33.0 pg [facility] Mean Corpuscular HGB Conc 30.9(L) 31.0 - 35.0 g/dl [facility] Red Cell Distribution Width 12.6 11.0 - 16.0 % [facility] Platelet Count 272 160 - 400 X10*3/uL [facility] Mean Platelet Volume 11.5 9.4 - 12.3 fL [facility] Neutrophils Percent Auto 69.9 45 - 73 % [facility] Imm Gran Pct Auto 0.1 0.0 - 0.4 % [facility] Lymphocytes Percent Auto 20.8 20 - 40 % [facility] Monocytes Percent Auto 6.7 2 - 11 % [facility] Eosinophils Percent Auto 1.9 0 - 4 % [facility] Basophils Percent Auto 0.6 0 - 2 % [facility] NRBC Pct Auto 0.0 0.0 - 0.2 /100WBC [facility] Neutrophils Absolute Auto 4.9 2.0 - 8.3 x10*3/uL [facility] Imm Gran Abs Auto 0.01 0.00 - 0.03 X10*3/uL [facility] Lymphocytes Absolute Auto 1.5 1.2 - 4.9 X10*3/uL [facility] Monocytes Absolute Auto 0.5 0.1 - 1.2 X10*3/uL [facility] Eosinophils Absolute Auto 0.1 0.0 - 0.4 X10*3/uL [facility] Basophils Absolute Auto 0.0 0.0 - 0.2 X10*3/uL [facility] NRBC Abs Auto 0.000 0.0 - 0.012 X10*3/uL [facility] Blood Venous blood specimen / Unknown 02/04/2025 9:52 AM EST 02/04/2025 11:28 AM EST us Sandro Chew MD LAB BLOOD ORDERABLES Final Resul t [facility] [address] [place] [address] [phone] * CT Abdomen Pelvis w/ Contrast (01/06/2025 3:11 PM EST) Anatomical Region Laterality Modality Body, Pelvis, Abdomen Computed T omography 01/06/2025 3:11 PM EST Narrative 01/06/2025 3:33 PM EST [address] [address] [address] Scan Report Signed Patient: Atiya Dotson MR#: [id number] : 1975 Acct:[id number] Age/Sex: 49 / F ADM Date: 01/06/25 Loc: HO.ED Attending Dr: Ordering Physician: Nieves Manrique NP Date of Service: 01/06/25 Procedure(s): CT abdomen pelvis w IV con Accession Number(s): [id number] cc: Maddie Kim; Nieves Manrique NP Report Number: [id number]: Total DLP = 630.00 mGy-cm Reason for [...] by: Roddy Gandhi MD 01/06/2025 03:30 PM [facility] Dictated By: Roddy Bernardo MD Signed By: <Electronically signed by Roddy Phillips MD in OV> 01/06/25 1530 DD/ 1511 TD/TT: 01/06/25 1519 Union Representative: Procedure Note Donotuseinterpreter, Image - 01/06/[address] [address] [address] Scan Report Signed Patient: Candi DotsonJesus#: [id number] : 1975Acct:[id number] Age/Sex: 49 / FADM Date: 01/06/25 Loc: HO.ED Attending Dr: Ordering Physician: Nieves Manrique NP Date of Service: 01/06/25 Procedure(s): CT abdomen pelvis w IV con Accession Number(s): [id number] cc: Maddie Kim; Nieves Manrique NP Report Number: [id number]: Total DLP = 630.00 mGy-cm Reason for [...] 01/06/25 1530 DD/ 1511 TD/TT: 01/06/25 1519 Union Representative: [facility] External Provider IMG CT PROCEDURES Final Result * XR KUB and Upright 2 Views (01/06/2025 11:16 AM EST) Anatomical Region Laterality Modality Radiographic Celeste ging 01/06/2025 11:1 6 AM EST Narrative 01/06/2025 11:29 AM EST [address] [address] XRay Report Signed Patient: Atiya Dotson MR#: [id number] : 1975 Acct:[id number] Age/Sex: 49 / F ADM Date: 01/06/25 Loc: HO.ED Attending Dr: Ordering Physician: Aurea Brandt Date of Service: 01/06/25 Procedure(s): XR KUB Accession Number(s): [id number] cc: Maddie Kim; Aurea Brandt Reason for [...] 01/06/25 1126 DD/ 1116 TD/TT: 01/06/25 1121 Union Representative: Procedure Note Donotuseinterpreter, Image - 01/06/2025 [place] [address] XRay Report Signed Patient: Zain Dotson#: [id number] : 1975Acct:[id number] Age/Sex: 49 / FADM Date: 01/06/25 Loc: HO.ED Attending Dr: Ordering Physician: Aurea Brandt Date of Service: 01/06/25 Procedure(s): XR KUB Accession Number(s): [id number] cc: Maddie Kim; Aurea Brandt Reason for [...] Roddy Gandhi MD 01/06/2025 11:26 AM EST RP Dictated By: Roddy Bernardo MD Signed By: <Electronically signed by Roddy Phillips MDin OV> 01/06/25 1126 DD/ 1116 TD/TT: 01/06/25 1121 Union Representative: [facility] External Provider IMG XR PROCEDURES Final Result * High Sensitivity Troponin I (01/06/2025 11:06 AM EST) Pathologist [facility] TROPONIN I HIGH SENSITIVITY <2.7 <3.5 - 17.0 ng/L [facility] Comment:The العلي high sens itivity Troponin-I results should beused in conjunction with other diagnostic information suchas ECG, clinical observations and information, and patientsymptoms to aid in the diagnosis of MS. 01/06/2025 11:0 6 AM EST 01/06/2025 11:12 AM EST Generic External Data Provider LAB BLOOD ORDERAB LES Final Result [facility] [address] [place] [phone] * hCG, Total, Quantitative (01/06/2025 11:06 AM EST) HCG Quantitative <2 mIU/mL [facility] Comment:Weeks post LMP Appro ximate hCG(Last Menstrual Period) Range (mIU/ml)3 - 4 weeks 9 - 1304 - 5 weeks 75 - 2,6005 - 6 weeks 850 - 20,8006 - 7 weeks 4000 - 100,2007 - 12 weeks 11,500 - 289,71715 - 16 weeks 18,300 - 137,97275 - 29 weeks (2nd trimester) 1,400 - 53,51298 - 41 weeks (3rd trimester) 940 - 60,000The العلي B- hCG assay is used for the early detection [...] Result Performing Organization Address [facility] Co in Phone Number [facility] [address] [place] [phone] * Magnesium (01/06/2025 11:06 AM EST) Magnesium 2.1 1.6 - 2.6 mg/dL [facility] 01/06/2025 11:0 6 AM EST 01/06/2025 11:12 AM EST [facility] External Data Provider LAB BLOOD ORDERAB LES Final Result Performing Organization Address [facility] Phone Number [facility] [address] [place] [phone] * Lipase (01/06/2025 11:06 AM EST) Lipase 36 8 - 78 U/L [facility] 01/06/2025 11:0 6 AM EST 01/06/2025 11:12 AM EST Generic External Data Provider LAB BLOOD ORDERAB LES Final Result Performing Organization Address [facility] Phone Number [facility] [address] [place] [phone] * Hepatic Function Panel (01/06/2025 11:06 AM EST) Bilirubin, Total 0.6 0.0 - 1.0 mg/dL [facility] Bilirubin, Direct 0.2 0.0 - 0.5 mg/dL [facility] Aspartate Amino Transferase 27 5 - 31 U/L [facility] Alanine Aminotransferase 28 0 - 31 U/L [facility] Total Protein 7.2 6.5 - 8.0 g/dL [facility] Albumin Level 4.5 3.5 - 5.0 g/dL [facility] Alkaline Phosphatase 85 39 - 117 U/L [facility] 01/06/2025 11:0 6 AM EST 01/06/2025 11:12 AM EST us Generic External Data Provider LAB BLOOD ORDERAB LES Final Result [facility] [address] [place] [phone] * Basic Metabolic Panel (01/06/2025 11:06 AM EST) Pathologist [facility] Sodium 136 135 - 145 mmol/L [facility] Potassium 4.1 3.3 - 5.1 mmol/L [facility] Chloride 101 96 - 108 mmol/L [facility] Carbon Dioxide 27 22 - 29 mmol/L [facility] Anion Gap 12 12 - 20 [facility] Urea Nitrogen (BUN) 16 9 - 16 mg/dL [facility] Creatinine, Serum 0.74 0.5 - 1.4 mg/dL [facility] Creatinine Clr Calc Pharmacy 90.9 [facility] Comment:Provided height and weight: 157.48 cm,78.018 kg.eGFR (calculated from the MDRD study equation) and eCrCl(calculated from the Cockcroft-Gault equation) are based ondifferent parameters and may not yield comparable results.If eCrCl result is absurd, please check patient'sheight/weight. Estimated Glomerular Filt Rate >60 [facility] Comment:Chronic Kidney Disea se: Estimated GFR < 60 mL/min/1.54n2Cvxqft Kidney Disease: Estimated GFR < 15 mL/min/1.73m2 Glucose 79 60 - 115 mg/dL [facility] Calcium 9.7 8.4 - 10.2 mg/dL [facility] 01/06/2025 11:0 6 AM EST 01/06/2025 11:12 AM EST us Generic External Data Provider LAB BLOOD ORDERAB LES Final Result Performing Organization Address City/[facility]/ZIP Co de Phone Number [facility] [address] [place] [phone] [phone] * Urinalysis, Complete, with Reflex to Culture (12/10/2024 2:54 AM EDT) Color Urine Yellow [facility] Appearance Urine Clear [facility] PH 6.5 5.0 - 9.0 [facility] Glucose Urine UA Negative Negative mg/dL [facility] Urine Blood Negative Negative [facility] Specific [place] - Urine <=1.005 1.005 - 1.025 [facility] Urine Protein Negative Neg-Trace mg/dL [facility] Urine Ketones Negative Negative mg/dL [facility] Nitrite Urine Negative Negative [facility] Leukocyte Esterase Urine Negative Negative [facility] RBC Urine 0-2 0 - 2 /HPF [facility] Urine WBC 0-5 0 - 5 /HPF [facility] Urine Squamous Epithelial Cell 0-2 0 - 2 /HPF [facility] Urine Bacteria None Seen None Seen [facility] Hyaline Casts, Urine 0-2 0 - 2 /LPF [facility] 12/10/2024 2:54 AM EDT 12/10/2024 3:00 AM EDT Narrative [facility] - 12/10/2024 3:21 AM EDT [id number], Clean Catch us Generic External Data Provider LAB URINE ORDERAB LES Final Result Performing Organization Address City/[facility]/ZIP Co de Phone Number [facility] [address] [place] [phone] * (ABNORMAL) Drug Monitoring, Panel 1, Screen, Urine (12/10/2024 2:54 AM EDT) Opiate Screen Urine Not Detected Not Detect [facility] Comment:Opiate cut-off is 30 0 ng/mL.Positive results are unconfirmed and should not be used fornon-medical purposes. Barbiturates, Urine Not Detected Not Detect [facility] Comment:Barbiturate cut-off is 200 ng/mL.Positive results are unconfirmed and should not be used fornon-medical purposes. Phencyclidine Screen Urine Not Detected Not Detect [facility] Comment:Phencyclidine cut-of f is 25 ng/mL.Positive results are unconfirmed and should not be used fornon-medical purposes. Amphetamine Screen Urine Not Detected Not Detect [facility] Comment:Amphetamine cut-off is 1000 ng/mL.Positive results are unconfirmed and should not be used fornon-medical purposes. Benzodiazepines Screen Urine Not Detected Not Detect [facility] Comment:Benzodiazepine cut-o ff is 200 ng/mL.Positive results are unconfirmed and should not be used fornon-medical purposes. Cocaine Screen Urine Not Detected Not Detect [facility] Comment:Cocaine cut-off is 3 00 ng/mL.Positive results are unconfirmed and should not be used fornon-medical purposes. Cannabinoid Screen Urine POSITIVE(A) Not Detect [facility] Comment:Cannabinoid cut-off is 50 ng/mL.Positive results are unconfirmed and should not be used fornon-medical purposes. Methadone Screen, Urine Not Detected Not Detect ng/mL [facility] Comment:Methadone cut-off is 300 ng/mL.Positive results are unconfirmed and should not be used fornon-medical purposes. FENTANYL URINE Not Detected Not Detect [facility] Comment:Fentanyl cut-off is 1 ng/mL.Positive results are unconfirmed and should not be used fornon-medical purposes. Oxycodone Urine Screen Not Detected Not Detect ng/mL [facility] Comment:Oxycodone cut-off is 100 ng/mL.Positive results are unconfirmed and should not be used fornon-medical purposes. Buprenorphine Screen Not Detected Not Detect ng/mL [facility] Comment:Buprenorphine cut-of f is 5 ng/mL.Positive results are unconfirmed and should not be used fornon-medical purposes. 12/10/2024 2:54 AM EDT 12/10/2024 3:00 AM EDT us Generic External Data Provider LAB URINE ORDERAB LES Final Result [facility] [address] [place] [phone] * Pap Smear (01/22/2024 8:03 AM EST) 01/22/2024 8:03 AM EST 01/23/2024 11:00 AM EST Narrative [facility] - 01/25/2024 12:58 PM EST ----- ------- Name: Atiya Esparza Age/Sex: 48/F : 1975 Unit#: [id number] Attend Dr: John Schmidt MD Re01/22/24 Status: DEP REF Location: HO.LNP Disch: ----- ------- SPEC : [id number] RECD: 12/ STATUS: MEHRDAD GREGG NUM: [id number] MAMADOU: 01/22/[address] [facility] [address]: John Schmidt MD ENTERED: 01/23/24 SP [...] Received ThinPrep-Cervical Copies To: Maddie Kim [address] [place] [address] John Schmidt MD [facility] [address] [place] [address] ----- ------- Signed (signature on file) YASSINE Garcia (ASCP) 01/25/24 1258 ----- ------- END OF REPORT us Generic External Data Provider LAB CYTOLOGY HARJEET AVALOS Final Result [facility] [address] [place] [phone] * Lipid Panel, Standard (09/08/2023 8:43 AM EDT) Triglycerides 57 <150 mg/dL [facility] Comment:Desirable Triglyceri de: less than 150 mg/dLBorderline High Triglyceride 150-199 mg/dLHigh Triglyceride: 200-499 mg/dLVery High Triglyceride: greater than or equal to 5OO mg/dL Cholesterol 158 <200 mg/dL [facility] Comment:Desirable Cholestero l: less than 200 mg/dLBorderline High Cholesterol: 200-239 mg/dLHigh Cholesterol: greater than 239 mg/dL LDL Cholesterol Calculated 87 <100 mg/dL [facility] Comment:Desirable LDL: less than 100 mg/dLNear Optimal/Above Optimal LDL: 110- 129 mg/dLBorderline High LDL: 130-159 mg/dLHigh LDL: 160-189 mg/dLVery High LDL: greater than or equal to 190 mg/dL HDL Cholesterol 60 >40 mg/dL [facility] Comment:Desirable HDL: great er than 40 mg/dL Note: This HDL assay may give artificially low results in patients with liver disease. Blood Venous blood specimen / Unknown 09/08/2023 8:43 AM EDT 09/08/2023 11:09 AM EDT us Maddie Kim MD LAB BLOOD ORDERABLES Final Res ult [facility] [address] [facility] [place] [address] [phone] * BI Mammogram Screening Tomosynthesis Bilateral (05/04/2023 4:02 PM EDT) Anatomical Region Laterality Modality Breast Bilateral Mammography 05/04/2023 4:02 PM EDT Narrative 05/26/2023 3:06 PM EDT [facility] [address] [place] [address] Mammography Report Signed Patient: Atiya Esparza MR#: [id number] : 1975 Acct:[id number] Age/Sex: 47 / F ADM Date: 05/04/23 Loc: MICHAEL Attending Dr: Maddie Kim MD Ordering Physician: Maddie Kim Results: 1Negative Date of Service: 05/04/23 Follow Up: 1 Year From [facility] Mammogram Procedure(s): MM tomosynthesis screening BI Accession Number(s): [id number] cc: Maddie Kim EXAMINATION: MM SCREENING DIGITAL [...] in OV> 05/26/23 1503 DD/ 1602 TD/TT: Union Representative: Procedure Note Donotuseinterpreter, Image - 05/26/2023 [facility] [address] [place] [address] Mammography Report Signed Patient: Zain Esparza#: [id number] : 1975Acct:[id number] Age/Sex: 47 / FADM Date: 05/04/23 Loc: MICHAEL Attending Dr: Maddie Kim MD Ordering Physician: Jaja Kimults: 1Negative Date of Service: 05/04/23Follow Up: 1 Year From Orig inal Mammogram Procedure(s): MM tomosynthesis screening BI Accession Number(s): [id number] cc: Maddie Kim EXAMINATION: MM SCREENING DIGITAL [...] in OV> 05/26/23 1503 DD/ 1602 TD/TT: Union Representative: Maddie Kim MD [facility] BI PROCEDURES Final Result * HPV GENOTYPES 16,18/45 (12/20/2020 12:00 AM EDT) HPV 16 RNA NOT DETECTED NOT DETECTED [facility] HPV 18/45 RNA NOT DETECTED NOT DETECTED [facility] Comment: Methodology: Bonded Structures Repairer Mediated Amplification The analytical performance characteristics of this assay have been determined by [email or web address]. The modifications have not been cleared or approved by the FDA. This assay has been validated pursuant to the CLIA regulations and is used for clinical purposes. 12/20/2020 Maddie Kim MD LAB CYTOLOGY ORDERABLES Final Result [facility] [address] Street from Last 3 Months or Most Recently Relevant to Health Maintenance Insurance [facility] < 67 YAYO VARGHESE [id number] Care Teams Social Research Assistant Relationship Specialty Start Date End Date Maddie Kim MD [address] [place] [address] PCP - General Family Medicine 07/12/20 [facility] 12/25/24
--- OUTSIDE RECORDS SUMMARY | 2025-02-04 11:43 | XMS_ITS | Encounter Summary ---
Author Organization [employer] Address [address] [place] [address] 7 [place] [address] Care Team Providers Care Construction Administrator Name Role Phone Maddie Kim MD Primary Care Provider [phone] Reason for Visit * Reason Onset Date Comments Med Refill 09/19/2024 Encounter Details Date Type Department Care Team ([facility] Contact Info) Description 09/19/2024 Telephone [facility] MEDICINE [address] [place], [place] [phone] Maddie Kim MD [address] [place], [place] [phone] Med Refill Social History Tobacco Use Types [...] 1:38 PM EDT Medication was sent to [id number] on 08/27/24 with 2 refills patient can call pharmacy and transfer medication. * Telephone Encounter - Gil Metz - 09/19/2024 1:29 PM EDT TC from pt requesting medication refill. Medications needing refill : Tirzepatide-Weight Management (Zepbound) 10 MG/0.5ML solution auto-injector To be sent to: [facility] - [place], [place] - [address] documented in this encounter Plan of Treatment Upcoming Encounters Date Type Department Care Team (Late st Contact Info) Description 03/27/2025 1:30 PM EST Office Visit [facility] MEDICINE [address] [place] [address] Maddie Kim MD [address] [place] [address] documented as of this encounter Visit Diagnoses Not on filedocumented in this encounter Additional Health Concerns Assessment Noted Time PHQ-9 Depression Total Score: 9 07/05/19 25 6:48 AM EDT documented as of this encounter Care Teams Construction Administrator Relationship Specialty Start Date End Date Maddie Kim MD [address] [place] [address] PCP - General Family Medicine 07/12/20 [facility] 01/17/22 01/05/25 [facility] 12/25/24 documented as of this encounter
--- OUTSIDE RECORDS SUMMARY | 2025-02-04 11:43 | XMS_ITS | Encounter Summary ---
Author Organization [employer] Address [address] [place] [address] 7 [place] [address] Care Team Providers Care Wagon Driver Name Role Phone Maddie Kim MD Primary Care Provider [phone] Reason for Visit * Reason Onset Date Comments Nutrition Medication Question 05/30/2023 Encounter Details Date Type Department Care Team ([facility] Contact Info) Description 05/30/2023 Telephone [facility] MEDICINE [address] [place], [place] [phone] Maddie Kim MD [address] [place], [place] [phone] Nutrition Medication Question Social History Tobacco Use [...] 1:30 PM EST Office Visit [facility] MEDICINE [address] [place] [address] Maddie Kim MD [address] [place] [address] documented as of this encounter Visit Diagnoses Not on filedocumented in this encounter Additional Health Concerns Assessment Noted Time PHQ-9 Depression Total Score: 0 05/30/19 23 3:26 PM EDT documented as of this encounter Care Teams Wagon Driver Relationship Specialty Start Date End Date Maddie Kim MD [address] [place] [address] PCP - General Family Medicine 07/12/20 [facility] 01/17/22 01/05/25 [facility] 12/25/24 documented as of this encounter
--- OUTSIDE RECORDS SUMMARY | 2025-02-04 11:43 | XMS_ITS | Encounter Summary ---
Author Organization [employer] Address [address] [place] [address] 7 [place] [address] Care Team Providers Care Plastics Nurse Name Role Phone Maddie Kim MD Primary Care Provider [phone] Reason for Visit * Reason Onset Date Comments Medication Question 08/01/2024 Encounter Details Date Type Department Care Team ([facility] Contact Info) Description 08/01/2024 Telephone [facility] MEDICINE [address] [place], [place] [phone] Maddie Kim MD [address] [place], [place] [phone] Medication Question Social History Tobacco Use Types [...] t he electric, gas, oil or water [employer] threatened to shut off services in your [...] medication. Pt seen today 08/01 at the [facility], provider: Jayleen Mckeon. documented in this encounter Plan of Treatment Upcoming Encounters Date Type Department Care Team (Late st Contact Info) Description 03/27/2025 1:30 PM EST Office Visit [facility] MEDICINE [address] [place] [address] Maddie iKm MD [address] [place] [address] documented as of this encounter Visit Diagnoses Not on filedocumented in this encounter Additional Health Concerns Assessment Noted Time PHQ-9 Depression Total Score: 9 07/05/19 25 6:48 AM EDT documented as of this encounter Care Teams Plastics Nurse Relationship Specialty Start Date End Date Maddie Kim MD [address] [place] [address] PCP - General Family Medicine 07/12/20 Willie [facility] 01/17/22 01/05/25 [facility] 12/25/24 documented as of this encounter
--- OUTSIDE RECORDS SUMMARY | 2025-02-04 11:43 | XMS_ITS | Encounter Summary ---
Author Organization [employer] Address [address] [place] [address] 7 [place] [address] Care Team Providers Care Lunchroom Worker Name Role Phone Maddie Kim MD Primary Care Provider [phone] Encounter Details Date Type Department Care Team ([facility] st Contact Info) Description 05/15/2023 Orders Only [facility] MEDICINE [address] [place], [place] [phone] Maddie Kim MD [address] [place], [place] [phone] Social History Tobacco Use Types Packs/Day Years [...] EST Office Visit [facility] MEDICINE [address] [place] [address] [phone] Maddie Kim MD [address] [place] [address] documented as of this encounter Visit Diagnoses Not on filedocumented in this encounter Additional Health Concerns Assessment Noted Time PHQ-9 Depression Total Score: 0 05/30/19 23 3:26 PM EDT documented as of this encounter Care Teams Lunchroom Worker Relationship Specialty Start Date End Date Maddie Kim MD [address] [place] [address] [phone] PCP - General Family Medicine 07/12/20 [facility] 01/17/22 01/05/25 [facility] 12/25/24 documented as of this encounter
--- OUTSIDE RECORDS SUMMARY | 2025-02-04 11:43 | XMS_ITS | Encounter Summary ---
Author Organization [employer] Address [address] [place] [address] 7 [place] [address] Care Team Providers Care Gamma Facilities Operator Name Role Phone Maddie Kim MD Primary Care Provider [phone] Encounter Details Date Type Department Care Team (Late Contact Info) Description 07/05/2022 Orders Only [facility] MEDICINE [address] [place] [address] [phone] Maddie Kim MD [address] [place] [address] [phone] Social History Tobacco Use Types Packs/Day Years [...] Office Visit [facility] MEDICINE [address] [place] [address] [phone] Maddie Kim MD [address] [place] [address] [phone] documented as of this encounter Visit Diagnoses Not on filedocumented in this encounter Additional Health Concerns Assessment Noted Time PHQ-9 Depression Total Score: 0 05/30/19 23 3:26 PM EDT documented as of this encounter Care Teams Gamma Facilities Operator Relationship Specialty Start Date End Date Maddie Kim MD [address] [place] [address] PCP - General Family Medicine 07/12/20 [facility] 01/17/22 01/05/25 [facility] 12/25/24 documented as of this encounter
--- OUTSIDE RECORDS SUMMARY | 2025-02-04 11:43 | XMS_ITS | Encounter Summary ---
Author Organization [employer] Address [address] [place] [address] 7 [place] [address] Care Team Providers Care Director Of Rooms Name Role Phone Maddie Kim MD Primary Care Provider [phone] Encounter Details Date Type Department Care Team ([facility] Contact Info) Description 11/14/2022 Orders Only [facility] MEDICINE [address] [place] [address] [phone] Maddie Kim MD [address] [place] [address] [phone] Social History Tobacco Use Types Packs/Day Years [...] Description 03/27/2025 1:30 PM EST Office Visit [facility] MEDICINE [address] [place] [phone] Maddie Kim MD [address] [place] [address] [phone] documented as of this encounter Visit Diagnoses Not on filedocumented in this encounter Additional Health Concerns Assessment Noted Time PHQ-9 Depression Total Score: 0 05/30/19 23 3:26 PM EDT documented as of this encounter Care Teams Director Of Rooms Relationship Specialty Start Date End Date Maddie Kim MD [address] [place] [address] PCP - General Family Medicine 07/12/20 [facility] 01/17/22 01/05/25 [facility] 12/25/24 documented as of this encounter
--- OUTSIDE RECORDS SUMMARY | 2025-02-04 11:43 | XMS_ITS | Encounter Summary ---
Author Organization [employer] Address [address] [place] [address] 7 [place] [address] Care Team Providers Care Breaker Mechanic Name Role Phone Maddie Kim MD Primary Care Provider [phone] Encounter Details Date Type Department Care Team (Late Contact Info) Description 06/26/2022 Abstract [facility] MEDICINE [address] [place] [address] Maddie Kim MD [address] [place] [address] [phone] Social History Tobacco Use Types Packs/Day Years [...] Description 03/27/2025 1:30 PM EST Office Visit [facility] MEDIC[facility] [address] [place] [address] [place] [address] Maddie Kim MD [address] [place], [place] [phone] documented as of this encounter Visit Diagnoses Not on filedocumented in this encounter Additional Health Concerns Assessment Noted Time PHQ-9 Depression Total Score: 0 05/30/19 23 3:26 PM EDT documented as of this encounter Care Teams Breaker Mechanic Relationship Specialty Start Date End Date Maddie Kim MD [address] [place] [address] PCP - General Family Medicine 07/12/20 Willie [facility] 01/17/22 01/05/25 [facility] 12/25/24 documented as of this encounter
--- OUTSIDE RECORDS SUMMARY | 2025-02-04 11:43 | XMS_ITS | Encounter Summary ---
Author Organization [email or web address] Address [address] [place] [address] 7t [place] [address] Care Team Providers Care Mate Relief Name Role Phone Maddie Kim MD Primary Care Provider [phone] Encounter Details Date Type Department Care Team ([facility] st Contact Info) Description 02/22/2024 Orders Only [facility] MEDICINE [address] [place], [place] [phone] Maddie Kim MD [address] [place], [place] [phone] Social History Tobacco Use Types Packs/Day Years [...] EST Office Visit [facility] MEDICINE [address] [place] [address] Maddie Kim MD [address] [place] [address] documented as of this encounter Visit Diagnoses Not on filedocumented in this encounter Additional Health Concerns Assessment Noted Time PHQ-9 Depression Total Score: 3 06/15/19 24 11:48 AM EDT documented as of this encounter Care Teams Mate Relief Relationship Specialty Start Date End Date Maddie Kim MD [address] [place] [address] PCP - General Family Medicine 07/12/20 [facility] 01/17/22 01/05/25 [facility] 12/25/24 documented as of this encounter
--- OUTSIDE RECORDS SUMMARY | 2025-02-04 11:44 | XMS_ITS | Encounter Summary ---
Author Organization [employer] Address [address] [place] [address] 7 [place] [address] Care Team Providers Care Laborer Ammunition Assembly Name Role Phone Maddie Kim MD Primary Care Provider [phone] Reason for Visit * Reason Onset Date Comments New Med Request 06/13/2024 Encounter Details Date Type Department Care Team ([facility] Contact Info) Description 06/13/2024 Telephone [facility] MEDICINE [address] [place], [place] [phone] Maddie Kim MD [address] [place], [place] [phone] New Med Request Social History Tobacco Use [...] EDT TC placed to Lauren (Visiting Nurse) [phone] regarding below message. Lauren informed RN that [...] Vitamin D-3 If any questions please contact [phone] documented in this encounter Plan of Treatment Upcoming Encounters Date Type Department Care Team (Late st Contact Info) Description 03/27/2025 1:30 PM EST Office Visit [facility] MEDICINE [address] [place] [address] Maddie Kim MD [address] [place] [address] documented as of this encounter Visit Diagnoses Not on filedocumented in this encounter Additional Health Concerns Assessment Noted Time PHQ-9 Depression Total Score: 3 06/15/19 24 11:48 AM EDT documented as of this encounter Care Teams Laborer Ammunition Assembly Relationship Specialty Start Date End Date Maddie Kim MD 230 [facility] [place] [address] PCP - General Family Medicine 07/12/20 [facility] 01/17/22 01/05/25 [facility] 12/25/24 documented as of this encounter
--- OUTSIDE RECORDS SUMMARY | 2025-02-04 11:44 | XMS_ITS | Encounter Summary ---
Author Organization [employer] Address [address] [place] [address] 7 [place] [address] Care Team Providers Care Boulevard Glassware Replacer Name Role Phone Maddie Kim MD Primary Care Provider [phone] Reason for Visit * Reason Onset Date Comments Prior Authorization 05/19/2024 Encounter Details Date Type Department Care Team ([facility] Contact Info) Description 05/19/2024 Telephone [facility] MEDICINE [address] [place] [address] [phone] Maddie Kim MD [address] [place], [place] [phone] Prior Authorization Social History Tobacco Use Types [...] Tirzepatide-Weight Management (Zepbound) 2.5 MG/0.5ML solution auto-injector. Enterprise Architect advise pt 7-14 business days. Pt verbalized [...] re fax it over. Contact pt at [phone] documented in this encounter Plan of Treatment Upcoming Encounters Date Type Department Care Team (Late st Contact Info) Description 03/27/2025 1:30 PM EST Office Visit [facility] MEDICINE [address] [place] [address] Maddie Kim MD [address] [place], [place] [phone] documented as of this encounter Visit Diagnoses Not on filedocumented in this encounter Additional Health Concerns Assessment Noted Time PHQ-9 Depression Total Score: 3 06/15/19 24 11:48 AM EDT documented as of this encounter Care Teams Boulevard Glassware Replacer Relationship Specialty Start Date End Date Maddie Kim MD [address] [place] [address] PCP - General Family Medicine 07/12/20 [facility] 01/17/22 01/05/25 [facility] 12/25/24 documented as of this encounter
--- OUTSIDE RECORDS SUMMARY | 2025-02-04 11:44 | XMS_ITS | Encounter Summary ---
Author Organization [employer] Address [address] [place] [address] 7t [place] [address] Care Team Providers Care Top Dyeing Machine Tender Name Role Phone Maddie Kim MD Primary Care Provider [phone] Encounter Details Date Type Department Care Team ([facility] st Contact Info) Description 06/13/2024 Orders Only [facility] MEDICINE [address] [place], [place] [phone] Maddie Kim MD [address] [place], [place] [phone] Social History Tobacco Use Types Packs/Day Years [...] 03/27/2025 1:30 PM EST Office Visit [facility] MEDICINE [address] [place] [address] Maddie Kim MD [address] [place] [address] documented as of this encounter Visit Diagnoses Not on filedocumented in this encounter Additional Health Concerns Assessment Noted Time PHQ-9 Depression Total Score: 3 06/15/19 24 11:48 AM EDT documented as of this encounter Care Teams Top Dyeing Machine Tender Relationship Specialty Start Date End Date Maddie Kim MD [address] [place] [address] PCP - General Family Medicine 07/12/20 [facility] 01/17/22 01/05/25 [facility] 12/25/24 documented as of this encounter
--- OUTSIDE RECORDS SUMMARY | 2025-02-04 11:44 | XMS_ITS | Encounter Summary ---
Author Organization [employer] Address [address] [place] [address] 7 [place] [address] Care Team Providers Care Accountant Property Name Role Phone Maddie Kim MD Primary Care Provider [phone] Reason for Referral * Consultation (Routine) - Closed Specialty Diagnoses / Procedures Referred By Sindi mejia Referred To Contact Physical Therapy Diagnoses Cervical spine pain Maddie Kim MD [address] [place] [address] Phone: tel: fax: AT Physical Therapy - [address] [address] Phone: tel: fax: Referral ID Status Reason Start Date Expiration Date V isits Requested Visits Authorized [id number] Closed Specialty Services Required 10/17/2024 10/17/2025 1 1 Encounter Details Date Type Department Care Team (Late st Contact Info) Description 10/17/2024 Orders Only [facility] MEDICINE [address] [place] [address] Maddie Kim MD [address] [place], [place] [phone] Cervical spine pain (Primary Dx) Social History [...] Description 03/27/2025 1:30 PM EST Office Visit [facility] MEDICINE [address] [place] [address] Maddie Kim MD [address] [place] [address] Scheduled Referrals Name Type Priority Associated Diagnoses [...] documented as of this encounter Care Teams Accountant Property Relationship Specialty Start Date End Date Maddie Kim MD [address] [place] [address] PCP - General Family Medicine 07/12/20 Willie [facility] 01/17/22 01/05/25 [facility] 12/25/24 documented as of this encounter
--- OUTSIDE RECORDS SUMMARY | 2025-02-04 11:44 | XMS_ITS | Encounter Summary ---
Author Organization [employer] Address [address] [place] [address] 7 [place] [address] Care Team Providers Care Spine Supervisor Name Role Phone Maddie Kim MD Primary Care Provider [phone] Reason for Visit * Reason Onset Date Comments Medication Question 07/09/2024 Encounter Details Date Type Department Care Team ([facility] Contact Info) Description 07/09/2024 Telephone [facility] MEDICINE [address] [place], [place] [phone] Maddie Kim MD [address] [place], [place] [phone] Medication Question Social History Tobacco Use Types [...] the past 12 months, has t he [employer] [place], gas, oil or water [employer] threatened to shut off services in your [...] 06/18/24 per PCP note. Patent spoke to tree surgeon's today and reported that [facility] is unable [...] Description 03/27/2025 1:30 PM EST Office Visit [facility] MEDICINE [address] [place] [address] Maddie Kim MD [address] [place] [address] documented as of this encounter Visit Diagnoses Not on filedocumented in this encounter Additional Health Concerns Assessment Noted Time PHQ-9 Depression Total Score: 9 07/05/19 25 6:48 AM EDT documented as of this encounter Care Teams Spine Supervisor Relationship Specialty Start Date End Date Maddie Kim MD [address] [place] [address] PCP - General Family Medicine 07/12/20 Willie [facility] 01/17/22 01/05/25 [facility] 12/25/24 documented as of this encounter
--- OUTSIDE RECORDS SUMMARY | 2025-02-04 11:44 | XMS_ITS | Encounter Summary ---
Author Organization [employer] Address [address] [place] [address] [address] [place] [address] Care Team Providers Care Peanut Roaster Name Role Phone Maddie Kim MD Primary Care Provider [phone] Encounter Details Date Type Department Care Team ([facility] st Contact Info) Description 04/14/2024 Orders Only [facility] MEDICINE [address] [place], [place] [phone] Maddie Kim MD [address] [place], [place] [phone] Social History Tobacco Use Types Packs/Day Years [...] Visit [facility] MEDICINE [address] [place], [place] [phone] Maddie Kim MD [address] [place], [place] [phone] documented as of this encounter Procedures Procedure [...] Immunofixation, Serum (04/14/2024 12:47 PM EST) Pathologist [facility] IMMUNOGLOBULIN G 1545 600 - 1640 mg/dL [facility] IMMUNOGLOBULIN A 197 47 - 310 mg/dL [facility] Immunoglobulin M 46(A) 50 - 300 mg/dL [facility] Comment:THIS TEST WAS PERFOR MED AT:[employer] [place] [phone] PARKINSON MD Immunofixation Result SEE NOTE [facility] Comment:Normal pattern. No m onoclonal proteins detected. 04/14/2024 12:4 7 PM EST 04/14/2024 12:47 PM EST [employer] External Data Provider LAB BLOOD ORDERAB LES Final Result Performing Organization Address [facility] de Phone Number [facility] [address] [place] [phone] * Cortisol Random (04/14/2024 12:47 PM EST) Pathologist [facility] Cortisol Random 5.7 ug/dL [facility] Comment:Reference Range*: Be fore 10 am 6.2-19.4 ug/dL After 5 pm 2.3-11.9 ug/dL*Please interpret above results accordingly.This test was performed using the [employer] chemiluminescentmethod. Values obtained from different assay methods cannotbe used interchangeably.Patients receiving fludrocortisone, prednisolone orprednisone may show artificially elevated cortisol valuesdue to cross-reactivity. 04/14/2024 12:4 7 PM EST 04/14/2024 12:47 PM EST Generic External Data Provider LAB BLOOD ORDERAB LES Final Result Performing Organization Address [facility] Co de Phone Number [facility] [address] [place] [phone] * Ferritin (04/14/2024 12:47 PM EST) Pathologist [facility] Ferritin 61 10 - 250 ng/mL [facility] 04/14/2024 12:4 7 PM EST 04/14/2024 12:47 PM EST us Gil Brewer MD LAB BLOOD ORDERABLES Final Resul t Performing Organization Address [facility] Co de Phone Number [facility] [address] [place] [address] [phone] * Iron And Total Iron Binding Capacity (04/14/2024 12:47 PM EST) Iron 77 30 - 160 mcg/dL [facility] Total Iron Binding Capacity 339 228 - 428 mcg/dL [facility] Percent Iron Saturation 23 15 - 50 % [facility] Unsaturated Iron Binding 262 ug/dL [facility] 04/14/2024 12:4 7 PM EST 04/14/2024 12:47 PM EST us Gil Brewer MD LAB BLOOD ORDERABLES Final Resul t Performing Organization Address [facility] Co de Phone Number [facility] [address] [place] [address] [phone] * (ABNORMAL) Basic Metabolic Panel (04/14/2024 12:47 PM EST) Sodium 139 135 - 145 mmol/L [facility] Potassium 4.3 3.3 - 5.1 mmol/L [facility] Chloride 104 96 - 108 mmol/L [facility] Carbon Dioxide 27 22 - 29 mmol/L [facility] Anion Gap 12 12 - 20 [facility] Urea Nitrogen (BUN) 7(L) 9 - 16 mg/dL [facility] Creatinine, Serum 0.69 0.5 - 1.4 mg/dL [facility] Estimated Glomerular Filt Rate >60 [facility] Comment:Chronic Kidney Disea se: Estimated GFR < 60 mL/min/[id number] Kidney Disease: Estimated GFR < 15 mL/min/1.73m2 Glucose 84 60 - 115 mg/dL [facility] Calcium 9.5 8.4 - 10.2 mg/dL [facility] 04/14/2024 12:4 7 PM EST 04/14/2024 12:47 PM EST us Gil Name LAB BLOOD ORDERABLES Final Resul t [facility] [address] [place] [phone] [phone] * (ABNORMAL) CBC auto differential (04/14/2024 12:47 PM EST) White Blood Count 6.5 4.8 - 10.8 X10*3/uL [facility] Red Blood Count 3.74(L) 4.20 - 5.50 X10*6/uL [facility] Hemoglobin 9.4(L) 12.0 - 16.0 g/dl [facility] Hematocrit 29.6(L) 37.0 - 47.0 % [facility] Mean Corpuscular Volume 79.1(L) 80.0 - 98.0 fL [facility] Mean Corpuscular Hemoglobin 25.1(L) 27.0 - 33.0 pg [facility] Mean Corpuscular HGB Conc 31.8 31.0 - 35.0 g/dl [facility] Red Cell Distribution Width 16.1(H) 11.0 - 16.0 % [facility] Platelet Count 530(H) 160 - 400 X10*3/uL [facility] Mean Platelet Volume 9.6 9.4 - 12.3 fL [facility] Neutrophils Percent Auto 56.2 45 - 73 % [facility] Imm Gran Pct Auto 0.6(H) 0.0 - 0.4 % [facility] Lymphocytes Percent Auto 32.5 20 - 40 % [facility] Monocytes Percent Auto 8.8 2 - 11 % [facility] Eosinophils Percent Auto 1.4 0 - 4 % [facility] Basophils Percent Auto 0.5 0 - 2 % [facility] NRBC Pct Auto 0.0 0.0 - 0.2 /100WBC [facility] Neutrophils Absolute Auto 3.7 2.0 - 8.3 x10*3/uL [facility] Imm Gran Abs Auto 0.04(H) 0.00 - 0.03 X10*3/uL [facility] Lymphocytes Absolute Auto 2.1 1.2 - 4.9 X10*3/uL [facility] Monocytes Absolute Auto 0.6 0.1 - 1.2 X10*3/uL [facility] Eosinophils Absolute Auto 0.1 0.0 - 0.4 X10*3/uL [facility] Basophils Absolute Auto 0.0 0.0 - 0.2 X10*3/uL [facility] NRBC Abs Auto 0.000 0.0 - 0.012 X10*3/uL [facility] 04/14/2024 12:4 7 PM EST 04/14/2024 12:47 PM EST us Gil Brewer MD LAB BLOOD ORDERABLES Final Resul t Performing Organization Address City/[facility]/ZIP Co de Phone Number [facility] [address] [place] [address] [phone] * (ABNORMAL) Osmolality, Urine (04/14/2024 12:45 PM EST) OSMOLALITY URINE 212(L) 373 - 1,093 mosm/kg [facility] 04/14/2024 12:4 5 PM EST 04/14/2024 1:55 PM EST us Generic External Data Provider LAB URINE ORDERAB LES Final Result Performing Organization Address [facility] Co de Phone Number [facility] [address] [place] [phone] * Sodium Without creatinine, Random Urine (04/14/2024 12:45 PM EST) Sodium Urine Random 47.0 mmol/L [facility] 04/14/2024 12:4 5 PM EST 04/14/2024 1:55 PM EST us Generic External Data Provider LAB BLOOD ORDERAB LES Final Result [facility] [address] [place] [phone] documented in this encounter Visit Diagnoses Not on filedocumented in this encounter Additional Health Concerns Assessment Noted Time PHQ-9 Depression Total Score: 3 06/15/19 24 11:48 AM EDT documented as of this encounter Care Teams Peanut Roaster Relationship Specialty Start Date End Date Maddie Kim MD [address] [place] [address] PCP - General Family Medicine 07/12/20 Willie Gage 01/17/22 01/05/25 [facility] 12/25/24 documented as of this encounter
--- OUTSIDE RECORDS SUMMARY | 2025-02-04 11:44 | XMS_ITS | Encounter Summary ---
Author Organization [employer] Address [address] [place] [address] [address] [place] [address] Care Team Providers Care Chair Pad Maker Name Role Phone Maddie Kim MD Primary Care Provider [phone] Reason for Visit * Reason Onset Date Comments Nurse Triage 05/14/2023 Encounter Details Date Type Department Care Team ([facility] Contact Info) Description 05/14/2023 Telephone [facility] MEDICINE [address] [place], [place] [phone] Maddie Kim MD [address] [place], [place] [phone] Nurse Triage Social History Tobacco Use Types [...] encounter Miscellaneous Notes * Telephone Encounter - Mlia Jean - 05/14/2023 2:56 PM EDT Symptoms: Leg Pain - Not From Injury, Numbness, Suicidal Thoughts Outcome: Schedule an urgent appointment (within 1 hour) or talk to a nurse or provider soon Reason: Caller denied all higher acuity questions The caller accepted this outcome Any questions to Destiny [phone] documented in this encounter Plan of Treatment Upcoming Encounters Date Type Department Care Team (Late st Contact Info) Description 03/27/2025 1:30 PM EST Office Visit [facility] MEDICINE [address] [place] [phone] Maddie Kim MD [address] [place] [phone] documented as of this encounter Visit Diagnoses Not on filedocumented in this encounter Additional Health Concerns Assessment Noted Time PHQ-9 Depression Total Score: 0 05/30/19 23 3:26 PM EDT documented as of this encounter Care Teams Chair Pad Maker Relationship Specialty Start Date End Date Maddie Kim MD [address] [place] [phone] PCP - General Family Medicine 07/12/20 Willie Gage 01/17/22 01/05/25 [facility] 12/25/24 documented as of this encounter
--- OUTSIDE RECORDS SUMMARY | 2025-02-04 11:44 | XMS_ITS | Encounter Summary ---
Author Organization [employer] Address [address] [place] [address] [address] [place] [address] Care Team Providers Care College Physics Instructor Name Role Phone Maddie Kim MD Primary Care Provider [phone] Encounter Details Date Type Department Care Team ([facility] st Contact Info) Description 07/07/2024 Orders Only [facility] MEDICINE [address] [place], [place] [phone] Maddie Kim MD [address] [place], [place] [phone] Benign hypertension (Primary Dx) Social History Tobacco [...] the past 12 months, has t he [employer] gas, oil or water company threatened to [...] EST Office Visit [facility] MEDICINE [address] [place] [address] Maddie Kim MD [address] [place] [address] documented as of this encounter Procedures Procedure Name Priority Date/Time Associated Diagnosis Comments BASIC METABOLIC PANEL Routine 07/10/2024 8:29 AM EDT Benign hypertension documented in this encounter Results * (ABNORMAL) Basic Metabolic Panel (07/10/2024 8:29 AM EDT) Sodium 136 135 - 145 mmol/L [facility] Potassium 4.3 3.3 - 5.1 mmol/L [facility] Chloride 105 96 - 108 mmol/L [facility] Carbon Dioxide 24 22 - 29 mmol/L [facility] Anion Gap 11(L) 12 - 20 [facility] Urea Nitrogen (BUN) 13 9 - 16 mg/dL [facility] Creatinine, Serum 0.68 0.5 - 1.4 mg/dL [facility] Estimated Glomerular Filt Rate >60 [facility] Comment:Chronic Kidney Disea se: Estimated GFR < 60 mL/min/1.66m1Butuiy Kidney Disease: Estimated GFR < 15 mL/min/1.73m2 Glucose 88 60 - 115 mg/dL [facility] Calcium 9.3 8.4 - 10.2 mg/dL [facility] Blood Venous blood specimen / Unknown 07/10/2024 8:29 AM EDT 07/10/2024 8:29 AM EDT us Maddie Kim MD LAB BLOOD ORDERABLES Final Res ult [facility] [address] [place] [phone] [phone] documented in this encounter Visit Diagnoses Diagnosis Benign hypertension- Primary Essential hypertension, benign documented in this encounter Additional Health Concerns Assessment Noted Time PHQ-9 Depression Total Score: 9 07/05/19 25 6:48 AM EDT documented as of this encounter Care Teams College Physics Instructor Relationship Specialty Start Date End Date Maddie Kim MD [address] [place] [phone] PCP - General Family Medicine 07/12/20 Willie Gage 01/17/22 01/05/25 [facility] 12/25/24 documented as of this encounter
[2025-02-04 11:46] LABS: Anion Gap 11 (12-20); Blood Urea Nitrogen 12 mg/dL (9-16); Calcium 9.7 mg/dL (8.4-10.2); Carbon Dioxide 25 mmol/L (22-29); Chloride 103 mmol/L (96-108); Estimated Glomerular Filt Rate > 60; Potassium 4.2 mmol/L (3.3-5.1); Sodium 135 mmol/L (135-145)
== END 2025-02-04 09:49 ==
LOC: HO.HHCL 09:48
PROVIDERS: PCP General Practice; Referring Provider Emergency Medicine; Visit Provider Emergency Medicine
DX: R53.83 Other fatigue (principal); R11.10 Vomiting, unspecified; R19.7 Diarrhea, unspecified
CPT/HCPCS: 36415; 80048; 85025